=== PATIENT | male | born 1945 | race Caucasian/White ===

== ENCOUNTER 2019-03-07 17:23 | Emergency (ER) | payer OTHER, BC ==
--- OUTSIDE RECORDS SUMMARY | 2019-03-07 17:27 | XMS REPORT ---
:1945 [facility] [address] [place] [address] Care Team Providers Name Role Phone Unavailable Unavailable Unavailable Problems This patient has no known problems. Allergies, Adverse Reactions, Alerts This patient has no known allergies or adverse reactions. Medications This patient has no known medications. Results Test Description Test Time Test Comments Text Results Atomic Results Result Comments CT, EXTREMITY, 2017-01-25 19:47:00 FINAL REPORT PATIENT ID: RADHA WITHOUT [id number] CLINICAL HISTORY: CONTRAST, RIGHT Trauma and pain COMPARISON: None. Correlation is made with a right hip series performed on the same date. FINDINGS: Multiple axial images of the right hip are submitted without IV contrast. Coronal and sagittal reformats were created. This exam was performed according to our departmental dose-optimization program, which includes automated exposure control, adjustment of the mA and/or kV according to patient size and/or use of the iterative reconstruction technique. There is a minimally displaced fracture of the superior margin of the greater trochanter of the right femur. There is overlying soft tissue contusion. Otherwise no acute fracture is present. The hip joint is aligned. No significant degenerative changes are present in the right hip. Vascular calcifications are present in the pelvis and right lower extremity. There are some prominent right inguinal lymph nodes. The largest has a short axis diameter of 1.7 cm. IMPRESSION: Minimally displaced fracture of the superior margin of the greater trochanter of the right femur. Prominent right inguinal lymph nodes, nonspecific. These may be reactive or reflect primary lymphoproliferative or metastatic neoplasm. Correlation is recommended. Signed: Jorge Kumar MDReport Verified Date/Time: 01/25/2017 19:47:23 Reading Location: [address] Reading Room , HIP, 2 VIEWS, 2017-01-25 19:11:00 Reason for FINAL REPORT PATIENT ID: RIGHT exam:->FALLReason [id number] CLINICAL HISTORY: for exam:->HIP Trauma and pain COMPARISON: PAINShould this be None. FINDINGS: Frontal performed at the view of the pelvis and a bedside?->No lateral view of the right hip are submitted. There is no acute fracture, malalignment or destructive bony lesion. Surgical clips overlie the right lower abdomen. Signed: Jorge Kumar MDReport Verified Date/Time: 01/25/2017 19:11:49 Reading Location: [address] Reading Room
[2019-03-07 19:25] LABS: Absolute Lymphocytes (CBC) 0.8 K/uL (0.7-4.9); Basophils % 0.5 % (0-1.3); Hematocrit 31.7 % (39.6-49.0); Lymphocytes % 8.2 % (15.3-44.8); MPV 7.2 fL (7.6-11.3)
[2019-03-07 19:41] LABS: Albumin 3.5 g/dL (3.4-5.0); Bilirubin Total 0.5 mg/dL (0.2-1.0); Potassium 3.3 mmol/L (3.5-5.1)
--- NOTE | 2019-03-07 19:51 | ER ---
Nurse's Notes [facility] Name: Amando Grossman Age: 73 yrs Sex: Male : 1945 Arrival Date: 03/07/2019 Time: 17:14 Bed 14 Private MD: Diagnosis: Other fatigue Presentation: 03/07 17:15 Presenting complaint: EMS states: Pt just started HD a week ago. Pt S/P HD around 15:30 wh states he felt weak afterwards. Pt denies SOB or Chest pain. Transition of care: patient was not received from another setting of care. Onset of symptoms was March 07, 2019. Risk Assessment: Do you want to hurt yourself or someone else? Patient reports no desire to harm self or others. Initial Sepsis Screen: Does the patient meet any 2 criteria? No. Patient's initial sepsis screen is negative. Does the patient have a suspected source of infection? No. Patient's initial sepsis screen is negative. Care prior to arrival: Glucose check: 133. 17:15 Method Of Arrival: EMS: [facility] 17:15 Acuity: KELLY 3 Historical: - Allergies: 17:23 Iodine; 17:23 PENICILLINS; - Home Meds: 17:23 metoprolol tartrate 50 mg Oral tab 1 tab 2 times per day [Active]; nifedipine 90 mg Oral TbER 1 tab once daily [Active]; WelChol 3.75 gram oral pwpk 1 packet twice a day [Active]; clopidogrel 75 mg oral tab 1 tab once daily [Active]; aspirin 81 mg Oral chew 1 tab once daily [Active]; zolpidem 10 mg Oral tab 1 tab nightly [Active]; tamsulosin 0.4 mg oral cp24 1 cap once daily [Active]; - PMHx: 17:23 Hypertension; High Cholesterol; Depression; Anxiety; GERD; - PSHx: 17:23 Knee Replacement; HEart Stents; 17:43 Nephrectomy; Colon Resection; - Immunization history:: Flu vaccine is up to date. - Coronavirus screen:: The patient has NOT traveled to [place], [place], or [place] in the past 14 days. - Social history:: Smoking status: Patient/guardian denies using. - Ebola Screening: : Patient negative for fever greater than or equal to 101.5 degrees Fahrenheit, and additional compatible Ebola Virus Disease symptoms Patient denies exposure to infectious person. Screenin:24 Abuse screen: Denies threats or abuse. Denies injuries from another. Nutritional wh screening: No deficits noted. Tuberculosis screening: No symptoms or risk factors identified. Fall Risk None identified. Assessment: 17:23 General: Appears in no apparent distress. Behavior is calm, cooperative, appropriate wh for age. Pain: Denies pain. Neuro: Level of Consciousness is awake, alert, obeys commands, Oriented to person, place, time, situation, Appropriate for age. Cardiovascular: Heart tones S1 S2. Cardiovascular: Dialysis shunt: in the anterior aspect of right upper chest. Respiratory: Airway is patent Respiratory effort is even, unlabored, Respiratory pattern is regular, symmetrical, Breath sounds are clear bilaterally. GI: Abdomen is flat, non-distended. : No signs and/or symptoms were reported regarding the genitourinary system. EENT: No signs and/or symptoms were reported regarding the EENT system. Derm: Skin is intact, is healthy with good turgor, Skin is pink, warm \T\ dry. normal. Musculoskeletal: Circulation, motion, and sensation intact. 20:20 Reassessment: Patient appears in no apparent distress at this time. Patient and/or jd3 family updated on plan of care and expected duration. Pain level reassessed. Patient is alert, oriented x 3, equal unlabored respirations, skin warm/dry/pink. pt reported understanding of discharge instructions. assisted pt out to vehicle with wheelchair. Patient states feeling better. Vital Signs: 17:17 BP 129 / 68; Pulse 83; Resp 18; Temp 98; Pulse Ox 98% ; Weight 87.54 kg; Height 5 ft. 8 wh in. (172.72 cm); 20:19 BP 151 / 78; Pulse 82; Resp 17 S; Pulse Ox 100% on R/A; jd3 17:17 Body Mass Index 29.35 (87.54 kg, 172.72 cm) ED Course: 17:14 Patient arrived in ED. 17:17 Triage completed. 17:41 Yasmine Victor is Primary Nurse. 17:42 Arm band placed on right wrist. 17:42 Patient has correct armband on for positive identification. Bed in low position. Call light in reach. Side rails up X 1. certified pedorthotist on. Pulse ox on. NIBP on. 18:02 Kian Abarca NP is PHCP. pm1 18:02 Trevor Abdalla MD is Attending Physician. pm1 20:20 No provider procedures requiring assistance completed. IV discontinued, intact, jd3 bleeding controlled, No redness/swelling at site. Pressure dressing applied. Administered Medications: No medications were administered Outcome: 19:50 Discharge ordered by MD. pm1 20:20 Discharged to home via wheelchair, with friend. jd3 20:20 Condition: stable 20:20 Discharge instructions given to patient, friend, Instructed on discharge instructions, follow up and referral plans. Demonstrated understanding of instructions, follow-up care. 20:22 Patient left the ED. jd3 Signatures: Kian Abarca NP CLASSIFIER TENDER pm1 Yasmine Victor Jonathon RN RN jd3 Corrections: (The following items were deleted from the chart) 20:21 20:20 Reassessment: pt reported understanding of discharge instructions. assisted pt jd3 out to vehicle with wheelchair. jd3
--- NOTE | 2019-03-07 19:51 | EDPHYS ---
Physician Documentation [facility] Name: Amando Grossman Age: 73 yrs Sex: Male : 1945 Arrival Date: 03/07/2019 Time: 17:14 Bed 14 Private MD: ED Physician Trevor Abdalla HPI: 03/07 18:12 This 73 yrs old Male presents to ER via EMS with complaints of fatigue. pm1 18:12 Onset: The symptoms/episode began/occurred today, after dialysis treatment. Associated pm1 signs and symptoms: Pertinent positives: cramping to left calf during dialysis treatment. Associated signs and symptoms: Pertinent negatives: chest pain, cough, dysuria, fever, headache, shortness of breath, vomiting. Modifying factors: The patient symptoms are alleviated by nothing, the patient symptoms are aggravated by nothing. The patient has not experienced similar symptoms in the past. Yes had dialysis treatment today where they took off more fluid than they had two days ago. Historical: - Allergies: 17:23 Iodine; 17:23 PENICILLINS; - Home Meds: 17:23 metoprolol tartrate 50 mg Oral tab 1 tab 2 times per day [Active]; nifedipine 90 mg Oral TbER 1 tab once daily [Active]; WelChol 3.75 gram oral pwpk 1 packet twice a day [Active]; clopidogrel 75 mg oral tab 1 tab once daily [Active]; aspirin 81 mg Oral chew 1 tab once daily [Active]; zolpidem 10 mg Oral tab 1 tab nightly [Active]; tamsulosin 0.4 mg oral cp24 1 cap once daily [Active]; - PMHx: 17:23 Hypertension; High Cholesterol; Depression; Anxiety; GERD; wh - PSHx: 17:23 Knee Replacement; HEart Stents; 17:43 Nephrectomy; Colon Resection; - Immunization history:: Flu vaccine is up to date. - Coronavirus screen:: The patient has NOT traveled to [place], [place], or [place] in the past 14 days. - Social history:: Smoking status: Patient/guardian denies using. - Ebola Screening: : Patient negative for fever greater than or equal to 101.5 degrees Fahrenheit, and additional compatible Ebola Virus Disease symptoms Patient denies exposure to infectious person. ROS: 18:12 Eyes: Negative for injury, pain, redness, and discharge, ENT: Negative for injury, pm1 pain, and discharge, Neck: Negative for injury, pain, and swelling. 18:12 Cardiovascular: Negative for chest pain, palpitations, and edema, Respiratory: Negative for shortness of breath, cough, wheezing, and pleuritic chest pain, Abdomen/GI: Negative for abdominal pain, nausea, vomiting, diarrhea, and constipation, Back: Negative for injury and pain, MS/Extremity: Negative for injury and deformity, Skin: Negative for injury, rash, and discoloration, Neuro: Negative for headache, weakness, numbness, tingling, and seizure. 18:12 Constitutional: Positive for fatigue, Negative for body aches. Exam: 18:12 Constitutional: This is a well developed, well nourished patient who is awake, alert, pm1 and in no acute distress. Head/Face: Normocephalic, atraumatic. Neck: Trachea midline, no thyromegaly or masses palpated, and no cervical lymphadenopathy. Supple, full range of motion without nuchal rigidity, or vertebral point tenderness. No Meningismus. Chest/axilla: Normal chest wall appearance and motion. Nontender with no deformity. No lesions are appreciated. Cardiovascular: Regular rate and rhythm with a normal S1 and S2. No gallops, murmurs, or rubs. Normal PMI, no JVD. No pulse deficits. Respiratory: Lungs have equal breath sounds bilaterally, clear to auscultation and percussion. No rales, rhonchi or wheezes noted. No increased work of breathing, no retractions or nasal flaring. Abdomen/GI: Soft, non-tender, with normal bowel sounds. No distension or tympany. No guarding or rebound. No evidence of tenderness throughout. Back: No spinal tenderness. No costovertebral tenderness. Full range of motion. Skin: Warm, dry with normal turgor. Normal color with no rashes, no lesions, and no evidence of cellulitis. MS/ Extremity: Pulses equal, no cyanosis. Neurovascular intact. Full, normal range of motion. 18:12 Neuro: Orientation: is normal, Motor: moves all fours, strength is normal, strength is 5/5 in all extremities. Vital Signs: 17:17 BP 129 / 68; Pulse 83; Resp 18; Temp 98; Pulse Ox 98% ; Weight 87.54 kg; Height 5 ft. 8 wh in. (172.72 cm); 20:19 BP 151 / 78; Pulse 82; Resp 17 S; Pulse Ox 100% on R/A; jd3 17:17 Body Mass Index 29.35 (87.54 kg, 172.72 cm) wh MDM: 18:02 Patient medically screened. pm1 19:49 Data reviewed: vital signs. Data interpreted: Pulse oximetry: on room air is 98 %. pm1 Interpretation: normal. Counseling: I had a detailed discussion with the patient and/or guardian regarding: the historical points, exam findings, and any diagnostic results supporting the discharge/admit diagnosis, lab results, the need for outpatient follow up, to return to the emergency department if symptoms worsen or persist or if there are any questions or concerns that arise at home. 19:49 ED course: Patient had dialysis treatment today which was his 4th hemodialysis pm1 treatment. He reports that removed 3/4 of a liter today which increased from 1/2 liter two days ago. He felt fatigued after dialysis and came to the ER for evaluation. No chest pain or shortness of breath. My impression is his fatigued is likely adjustment to new life of hemodialysis. 03/07 18:12 Order name: CBC with Diff; Complete Time: 19:49 pm1 03/07 18:12 Order name: CMP; Complete Time: 19:43 pm1 03/07 18:12 Order name: EKG; Complete Time: 18:12 pm1 03/07 18:12 Order name: EKG - Nurse/Tech; Complete Time: 18:38 pm1 EC:26 Rate is 82 beats/min. Rhythm is irregular, Sinus arrythmia with PACs. QRS [place] is kdr Normal. IA interval is normal. QT interval is prolonged. Clinical impression: NSR w/ Non-specific ST/T Changes. Administered Medications: No medications were administered Disposition: 03/07/19 19:50 Discharged to Home. Impression: Other fatigue. - Condition is Stable. - Discharge Instructions: Fatigue, Hemodialysis. - Medication Reconciliation Form, Thank You Letter, Antibiotic Education, Prescription Opioid Use form. - Follow up: Private Physician; When: 2 - 3 days; Reason: Recheck today's complaints, Continuance of care, Re-evaluation by your physician. Follow up: Emergency Department; When: As needed; Reason: Worsening of condition. - Problem is new. - Symptoms have improved. Addendum: 03/08/2019 21:19 Co-signature as Attending Physician, Trevor Abdalla MD I agree with the assessment and k dr plan of care. Signatures: Dispatcher [employer] [facility] Trevor Abdalla MD MD [facility] Kain Abarca, COOLER TENDER COOLER TENDER pm1 Yasmine Victor Jonathon, RN RN jd3 Corrections: (The following items were deleted from the chart) 03/07 20:22 19:50 03/07/2019 19:50 Discharged to Home. Impression: Other fatigue. Condition is jd3 Stable. Forms are Medication Reconciliation Form, Thank You Letter, Antibiotic Education, Prescription Opioid Use. Follow up: Private Physician; When: 2 - 3 days; Reason: Recheck today's complaints, Continuance of care, Re-evaluation by your physician. Follow up: Emergency Department; When: As needed; Reason: Worsening of condition. Problem is new. Symptoms have improved. pm1
[2019-03-07 20:27] VITALS: BP 151/78; O2SAT 100
--- NOTE | 2019-03-08 09:41 | EKG ---
Test Date: 2019-03-07 Test Time: 18:17:53 [employer] Custodian: SHAILA MEASUREMENT RESULTS: Intervals: Rate: 82 HI: 198 QRSD: 102 QT: 426 QTc: 497 [place]: P: 45 HI: 198 QRS: 68 T: 58 INTERPRETIVE STATEMENTS: Sinus rhythm with premature supraventricular complexes Prolonged QT Abnormal ECG Compared to ECG 05/30/2005 15:24:00 Atrial premature complex(es) now present Prolonged QT interval now present Sinus tachycardia no longer present Electronically Signed On 03-08-19 09:40:49 TOOL SALVAGE WORKER by Chauncey Benitez
== END 2019-03-07 20:22 | disposition home or self-care (01) ==
LOC: ER 17:23
DX: R53.83 Other fatigue (principal); Z91.09 Other allergy status, other than to drugs and biological substances; Z88.0 Allergy status to penicillin; I10 Essential (primary) hypertension; E78.00 Pure hypercholesterolemia, unspecified; F41.8 Other specified anxiety disorders; K21.9 Gastro-esophageal reflux disease without esophagitis; Z95.5 Presence of coronary angioplasty implant and graft; Z99.2 Dependence on renal dialysis
CPT/HCPCS: 36415; 80053; 85025; 93005; 99284

== ENCOUNTER 2020-10-01 13:54 | Emergency (ER) | payer OTHER, BC ==
--- OUTSIDE RECORDS SUMMARY | 2020-10-01 13:59 | XMS REPORT | Continuity of Care Document ---
:1945 Author Organization [facility] t Address [address] [place] [address] [place] [address] Care Team Providers Name Role Phone Jerrell Pierce MD Primary Care Physician Archie Harris MD Attending Clinician Sugar SANTOS Attending Clinician Unavailable Jignesh Arvizu MD Attending Clinician Arvin King DO Attending Clinician Dickson MOSQUERA Attending Clinician Ame Attending Clinician Bear Graham MD Attending Clinician DO ARVIN KING Attending Clinician Unavailable Pierre York MD Attending Clinician Lisa Pedraza Attending Clinician Sahil Mosley MD Attending Clinician SHIVA Attending Clinician Unavailable KAYLIE Attending Clinician Unavailable CYN Attending Clinician Unavailable CHRISTINE Admitting Clinician Unavailable DO ARVIN KING Admitting Clinician Unavailable SHIVA Admitting Clinician Unavailable KAYLIE Admitting Clinician Unavailable Payers Payer Name Policy Type Policy Effective Date Expiration Date Sour ce Number MEDICAREMEDICARE PART [id number] 2010 [facility] [id number] 2010- [place] [id number] 2010 Sathya odist MEDICARE 4 00:00:00 Hospital [id number] -PresentCom mercial Problems Condition Condition Condition Status Onset Resolution Last Treating Co mments Source Name Details Category Date Date Treatment Clinician Date 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 Added automatic ally from request for surgery [id number] End stage End stage Disease Active Met hodi renal renal 1-23 st disease on disease on 00:00: Ho spita dialysis dialysis 00 l Chronic Chronic Disease Active 2018-02 Methodi disease disease 0-09 st anemia anemia 00:00: Hospita 00 l Chronic Chronic Disease Active 2018-02 Methodi kidney kidney 0-09 st disease, disease, 00:00: Hospit a stage IV stage IV 00 l (severe) (severe) Anemia, Anemia, Disease Active 2017-02 Methodi unspecifie unspecifie 1-13 st d d 00:00: Hospita 00 l Infection Infection Disease Active Met hodi of of 5-31 st prosthetic prosthetic 00:00: Ho spita right knee right knee 00 l joint joint Fever Fever Disease Active [facility] Mechanical Mechanical Disease Active C [facility] loosening loosening 6-16 [facility] - of of 00:00: Medical prosthetic prosthetic 00 Ce nter joint joint ROUTINE Condition Active 2014-02-18 Me moria GENERAL 1-08 10:35:00 l MEDICAL ROUTINE 00:00: Carlton escoto EXAMINATIO GENERAL 00 N AT A MEDICAL HEALTH EXAMINATIO CARE N AT A FACILITY HEALTH CARE FACILITY Active 02/18/2014 Condition 5 [facility] HYPERTROPH Condition Active 2012-022014-02-18 Memoria Y PROSTATE 2-13 10:35:00 l W/UR OBST 00:00: [place] & OTH LUTS HYPERTROPH 00 Y PROSTATE W/UR OBST & OTH LUTS Active 01/23/2013 Condition 5 [facility] Group HYPERTENSI Condition Active 2014-02-18 Memoria ON 10:35:00 l Jimmy HYPERTENSI ON Active Condition 02/18/2014 Medical Group DYSLIPIDEM Condition Active 2014-02-18 Memoria [place] 10:35:00 l [place] DYSLIPIDEM [place] Active Condition 02/18/2014 Medical Group GERD Condition Active 2014-02-18 Mem oria 10:35:00 l GERD Jimmy Active Condition 02/18/2014 Medical Group ASCVD Condition Active 2014-02-18 Mem oria 10:35:00 l ASCVD Jimmy Active Condition 02/18/2014 Medical Group CAD Condition Active 2014-02-18 Mem oria 10:35:00 l CAD Jimmy Active Condition 02/18/2014 Medical Group CHRONIC Condition Active 2014-02-18 Me moria KIDNEY 10:35:00 l DISEASE CHRONIC Carlton n STAGE III KIDNEY (MODERATE) DISEASE STAGE III (MODERATE) Active Condition 02/18/2014 Medical Group Allergies, Adverse Reactions, Alerts Allergy Allergy Status Severity Reaction(s) Onset Inactive Treating Comm ents Source Name Type Date Date Clinician Iodine FA Active [place] [facility] and 05-13 Clear Iodide 00:00: Smith Containi 00 [facility] shellfis FA Active [facility] h - Clear derived 00:00: Smith [address] [facility] PINICILL DA Active [place] [facility] IN 05-13 Clear 00:00: Smith [address] [facility] No Known DA Active [facility] Allergie 05-13 [place] s 00:00: d 00 Medical [place] Eicosape Propensi Active [facility] to 8-13 [facility] - Acid adverse 00:00: Medical reaction 00 Hans[place] s Shellfis Propensi Active Nausea And 2015-02 Me thodi h ty to Vomiting 0-21 st Containi adverse 00:00: Hospita ng reaction 00 l Products s to drug Iodine Propensi Active Rash 2015-[address] ty to 0-20 [facility] - adverse 00:00: Medical reaction 00 Hanson s Iodine Propensi Active Rash 2015-02 Methodi ty to 0-20 st adverse 00:00: Hospita reaction 00 l s to drug Penicill Propensi Active Rash 2015-02 unknown Metho di ins ty to 0-20 st adverse 00:00: Hospita reaction 00 l s to drug Atorvast Propensi Active [facility] at[facility] ty to 2-24 [facility] - adverse 00:00: Medical reaction 00 Center s Penicill Propensi Active Hives, unknown [facility] t ins ty to Anaphylaxis - [facility] - adverse 00:00: Medical reaction 00 Center s Shellfis Propensi Active Diarrhea, [facility] ty to Nausea And 07-09 [facility] - Containi adverse Vomiting 00:00: Medic al ng reaction 00 Center Products s PCN PCN Active Chela Marquez IODINE IODINE Active Memnick Marquez Family History Family Member Diagnosis Comments Start Date Stop Date Source Natural father Heart disease [facility] Natural mother COPD [facility] Social History Social Habit Start Date Stop Date Quantity Comments Source Tobacco use and 2020-04-27 2020-04-27 Never used Jew exposure 00:00:00 00:00:00 Hospital Alcohol intake 2020-04-27 2020-04-27 Current Jew 00:00:00 00:00:00 non-drinker of Hospital alcohol (finding) Sex [birth year] Jew 00:00:00 00:00:00 [facility] Smoking Status Start Date Stop Date Source Never smoker Jew Hospit al Medications Ordered Filled Start Stop Current Ordering Indication Dosage Frequency Signature Comments Components Source Medication Medication Date Date Medication? Clinician (SIG) Name Name zolpidem No 10mg QD Take 10 mg Me thodi (AMBIEN) 10 03-[address] mg tablet 17:35: 00:00 nightly. Hos imelda 37 :00 l aspirin No 81mg QD Take 81 mg Met hodi (ECOTRIN) 03-[address] 81 MG 17:35: 00:00 daily. Hospita enteric 37 :00 l coated tablet traZODone No 100mg QD Take 100 Me thodi (DESYREL) 2-13 02-[address] 100 MG 17:35: 00:00 mouth Hospita tablet 37 :00 nightly. l gabapentin 2020-2020- No 100mg Q.5D Take 100 M ethodi (NEURONTIN) 2-13 02-[address] 100 mg 17:35: 00:00 mouth 2 Hospita capsule 37 :00 (two) l times a day. Take 2 capsules (total of 200 mg) in the evening sulfamethox 0 2020- No 800mg QD Take 800 Methodi azole/trime 2-13 02-[address] thoprim 17:35: 00:00 mouth Hospita (BACTRIM 37 :00 daily. l ORAL) acetaminoph Yes 2000mg QD Take 2,000 Methodi en 2-[address] (TYLENOL) 17:35: mouth Hospita 500 MG 31 daily. l tablet tamsulosin Yes .4mg QD Take 0.4 Met hodi (FLOMAX) 2-[address] 0.4 mg 17:35: mouth Hospita capsule 31 every l morning. clopidogreL Yes 75mg QD Take 75 mg Methodi (PLAVIX) 75 2-[address] mg tablet 17:35: every Hospita 31 morning. l vit A/vit Yes 1{tbl} Q.5D Take 1 Meth herminia C/vit 2-[address] E/zinc/bravo 17:35: mouth 2 Hos imelda er 31 (two) l (PRESERVISI times a ON . ORAL) colesevelam Yes Take by Met hodi (WELCHOL) 2-[address] 3.75 gram 17:35: Welchol Hospi ta powder in 31 (ONLY) l packet Take 2 - 3.75 gram packets per day after AM & PM FLUTICASONE 0 Yes Q.5D into each M ethodi PROPIONATE 2-[address] NASL 17:35: (two) Hospita 31 times a l day. [place] twice daily diphenhydrA Yes 25mg Take 25 mg Methodi MINE 2-[address] (BENADRYL) 17:35: once. Hospit a 25 mg 31 l tablet desvenlafax Yes 25mg QD Take 25 mg Methodi ine 2-[address] succinate 17:35: daily. Hospit a (Pristiq) 31 l 25 mg tablet extended release 24 hr furosemide Yes 40mg QD Take 40 mg M ethodi (LASIX) 40 2-[address] mg tablet 17:35: daily. Hospit a 31 l folic Yes 1{capsu Take 1 Methodi acid/vit B 2-13 le} capsule by st complex and 17:35: mouth Hospi ta C 31 Every l (DIALYVITE Saturday, ORAL) Saturday, and Saturday. After dialysis metoprolol 2020- No 25mg Q.5D Take 1 Meth herminia tartrate 03-25-15 tablet (25 st (LOPRESSOR) 00:00: 04:59 mg total) Hospita 25 mg 00 :00 by mouth 2 l tablet (two) times a day for 30 days. gabapentin 2020- No 300mg QD Take 1 Met hodi (NEURONTIN) 03-25-[address] 300 mg 00:00: 04:59 (300 mg Hospita capsule 00 :00 total) by l mouth nightly for 30 days. aspirin 2020- No 81mg Q.5D Take 1 Methodi (ECOTRIN) 03-25-15 tablet (81 st 81 MG 00:00: 04:59 mg total) Hospit a enteric 00 :00 by mouth 2 l coated (two) tablet times a day for 30 days. traZODone 2020- No 150mg QD Take 1 Meth herminia (DESYREL) 03-25-[address] 150 MG 00:00: 04:59 (150 mg Hospita tablet 00 :00 total) by l mouth nightly for 30 days. zolpidem 2020- No 5mg QD Take 1 Method i (AMBIEN) 5 03-25-15 tablet (5 st MG tablet 00:00: 04:59 mg total) Ho spita 00 :00 by mouth l nightly for 30 days. sulfamethox 2020- No 1{tbl} QD Take 1 M ethodi azole-trime 11-02- tablet by st thoprim 00:00: 00:00 mouth Hospita (Bactrim) 00 :00 daily. l 400-80 mg per tablet sulfamethox 2019-0 2020- No TAKE ONE M ethodi azole-trime -29 10- TABLET BY st thoprim 00:00: 00:00 MOUTH Hospita (BACTRIM 00 :00 DAILY l DS) 800-160 mg per tablet COLESEVELAM 2016-02 Yes 3.75g Take 3.[address] HCL 2-15 g by mouth [facility] - (WELCHOL 17:11: 2 (two) Medica l ORAL) 46 times Center daily with breakfast and dinner . coenzyme 2016-02 Yes [address] [facility] Q10 100 mg 2-15 [facility] - Chew 17:11: [address] niacin 500 2016-02 Yes [address] [facility] MG CR 2-15 [facility] - capsule 17:11: [address] zolpidem 2016-02 Yes 10mg Take [address] (AMBIEN) 10 2-15 by mouth Luke s - mg tablet 17:10: every Medical 17 night as Center needed for Insomnia. DULoxetine 2016-02 Yes 60mg QD Take [address] (CYMBALTA) 2-15 by mouth [facility] - 60 MG 17:10: daily. Medical capsule 17 Center NIFEdipine 2016-02 Yes 60mg QD Take [address] (PROCARDIA- 2-15 by mouth Luke s - XL) 60 MG 17:10: daily. Medica l (OSM) 24 hr 17 Center tablet tamsulosin 2014-0 Yes .4mg 0.[address] (FLOMAX) 5-23 [facility] - 0.4 mg Cp24 00:00: Medica l 24 hr 00 Center capsule pantoprazol 2015-0 Yes QD daily . [facility] e 5-22 [facility] - (PROTONIX) 00:00: Medical 40 MG 00 Center tablet pantoprazol 2014-0 Yes 40mg QD Take 40 mg Methodi e 5-[address] (PROTONIX) 00:00: every Hospit a 40 MG EC 00 morning. l tablet clopidogrel 2015-0 Yes QD daily . [facility] (PLAVIX) 75 5-12 [facility] - mg tablet 00:00: Medical 00 Center fluticasone 2014-0 Yes 2{spray Q.5D [address] (FLONASE) 5-12 } by Nasal [facility] - 50 00:00: route 2 Medical mcg/actuati 00 (two) Center on nasal times spray daily . metoprolol Yes Q.5D 2 (two) [facility] (LOPRESSOR) 5-12 times [facility] - 50 MG 00:00: daily . Medical tablet 00 [place] nisoldipine Yes 34mg QD 34 mg [facility]I [facility] t (SULAR) 34 5-12 daily . [facility] - MG 24 hr 00:00: Medical tablet 00 [place] metoprolol 1- No 25mg QD Take 25 mg Methodi tartrate 5-12 02-[address] (LOPRESSOR) 00:00: 00:00 daily. Hos imelda 50 MG 00 :00 l tablet CLOPIDOGREL Yes TAKE 1 Andres dora BISULFATE 1-08 TABLET BY l 75 MG TABS 10:35: MOUTH Carlton n 00 DAILY NISOLDIPINE Yes TAKE 1 Andres dora ER 34 MG 1-08 TABLET BY l [id number] 10:35: MOUTH Jimmy 00 DAILY LOSARTAN Yes TAKE 1 Memoria POTASSIUM 1-08 TABLET BY l 100 MG TABS 10:35: MOUTH Mary nn 00 DAILY CYMBALTA 60 Yes TAKE 1 Andres dora MG CPEP 1-08 TABLET BY l 10:35: MOUTH [place] 00 DAILY PANTOPRAZOL Yes TAKE 1 Andres dora E SODIUM 40 1-08 TABLET BY l MG TBEC 10:35: MOUTH [place] 00 DAILY METOPROLOL Yes 2 tab AM & M emoria TARTRATE 50 1-08 1 tab PM l MG TABS 00:00: [place] 00 WELCHOL Yes 2 packs Memoria 3.75 GM 1-08 per day AM l PACK 00:00: & PM Jimmy NIACIN 500 Yes 1 tab Memori a MG TABS 1-08 daily l 00:00: Jimmy 00 PAPAYA Yes 2 tablet Memoria ENZYME TABS 1-08 after main l 00:00: meals Jimmy METOPROLOL 2012-02 Yes TAKE 1 Memor ia TARTRATE 50 2-13 TABLET BY l MG TABS 14:45: MOUTH Jimmy 00 DAILY LOSARTAN 2012-02 Yes TAKE 1 Memoria POTASSIUM 2-13 TABLET BY l 100 MG TABS 14:45: MOUTH Mary nn 00 DAILY WELCHOL 2012-02 Yes TAKE 1 Memoria 3.75 GM 2-13 TABLET BY l PACK 14:45: MOUTH [place] 00 DAILY CYMBALTA 60 2012-02 Yes TAKE 1 Andres dora MG CPEP 2-13 TABLET BY l 14:45: MOUTH [place] DAILY PANTOPRAZOL 2012-02 Yes TAKE 1 Andres dora E SODIUM 40 2-13 TABLET BY l MG TBEC 14:45: MOUTH Jimmy DAILY PLAVIX 75 2012-02 No TAKE 1 Memori a MG TABS 2-13 TABLET BY l 00:00: MOUTH Jimmy 00 DAILY OCUVITE EYE 2012-02 Yes Memori a + MULTI 2-13 l TABS 00:00: Jimmy 00 COQ10 CAPS 2012-02 Yes Memoria 2-13 l 00:00: [place] 00 ASPIRIN 81 2012-02 Yes Memoria MG TABS 2-13 l 00:00: Jimmy 00 FLOMAX 0.4 2012-02 Yes one every Me moria MG CAPS 2-13 evening. l 00:00: [place] 00 LUNESTA 3 2012-02 Yes TAKE 1 Memori a MG TABS 2-13 TABLET BY l 00:00: MOUTH [place] DAILY LUNESTA 3 2012-02 Yes TAKE 1 Memori a MG TABS 2-13 TABLET BY l 00:00: MOUTH [place] DAILY FLOMAX 0.4 2012-02 No one every Me moria MG CAPS 2-13 evening. l 00:00: Jimmy 00 FLUTICASONE Yes 1 spray in Memoria PROPIONATE 6-05 each l 50 MCG/ACT 00:00: nostrill Her garcia SUSP 00 twice day FLUTICASONE Yes 1 spray in Memoria PROPIONATE 6-05 each l 50 MCG/ACT 00:00: nostrill Her garcia SUSP 00 twice day Immunizations Ordered Immunization Filled Immunization Date Status Commen ts Source Name Name influenza 2010-10-16 Completed [facility] immunization (Flu 14:23:57 Jimmy Vax) has been administered pneumococcal 2007-06-14 Completed [facility] immunization 14:23:57 Jimmy administered hepatitis B vaccine 2006-04-11 Completed Memor ial #3 15:23:57 Jimmy chicken pox 2006-03-20 Completed [facility] immunization #1 15:23:57 Jimmy hepatitis B vaccine 2006-03-15 Completed Memor ial #2 given 15:23:57 [place] MMR (measles, mumps, 2006-02-28 Completed Andres rial rubella) virus 15:23:57 Jimmy immunization #1 hepatitis B vaccine 2006-02-25 Completed Memor ial #1 given 15:23:57 [place] Vital Signs Vital Name Observation Time Observation Value Comments Source Body height 2020-04-27 20:44:00 172.7 cm [facility] Body weight 2020-04-27 20:44:00 84.369 kg [facility] BMI 2020-04-27 20:44:00 28.28 kg/m2 [facility] Systolic blood 2020-03-26 14:44:51 139 mm[Hg] [facility] pressure Diastolic blood 2020-03-26 14:44:51 66 mm[Hg] [facility] pressure Heart rate 2020-03-26 14:44:51 80 /min [facility] Body temperature 2020-03-26 14:44:51 36 [facility] Respiratory rate 2020-03-26 14:44:51 19 /min [facility] Oxygen saturation in 2020-03-26 14:44:51 96 /min [facility] Arterial blood by Pulse oximetry Height 2014-02-18 15:55:42 [facility] Jimmy Weight 2014-02-18 15:55:42 [facility] Jimmy Temperature Oral (F) 2014-02-18 15:55:42 97.5 F [facility] [place] Heart Rate 2014-02-18 15:55:42 [facility] Jimmy Systolic (mm Hg) 2014-02-18 15:55:42 Andres rial [place] Diastolic (mm Hg) 2014-02-18 15:55:42 Mem orial [place] Weight 2013-01-23 19:53:21 Memorial Jimmy Temperature Oral (F) 2013-01-23 19:53:21 97.6 F [facility] Jimmy Heart Rate 2013-01-23 19:53:21 Memorial [place] Height 2013-01-23 19:53:21 Memorial Jimmy Systolic (mm Hg) 2013-01-23 19:53:21 Andres rial Jimmy Diastolic (mm Hg) 2013-01-23 19:53:21 Mem orial Jimmy Procedures Procedure Date / Time Performing Clinician Source Performed [id number] 2020-05-11 00:00:00 ENCPL [id number] 2020-05-11 00:00:00 ENCPL [id number] 2020-05-11 00:00:00 ENCPL [id number] 2020-03-30 00:00:00 ENCCY [id number] 2020-03-30 00:00:00 ENCCY 1V5W02V 2020-03-30 00:00:00 ENCCY 1X3W23T 2020-03-30 00:00:00 ENCCY [id number] 2020-03-30 00:00:00 ENCCY 6Y2V96E 2020-03-30 00:00:00 ENCCY 2R8N54H 2020-03-30 00:00:00 ENCCY 7W2W49O 2020-03-30 00:00:00 ENCCY 1X5U43Y 2020-03-30 00:00:00 ENCCY 7P3M27X 2020-03-30 00:00:00 ENCCY 4T1G18J 2020-03-30 00:00:00 ENCCY [id number] 2020-03-30 00:00:00 ENCCY [id number] 2020-03-30 00:00:00 ENCCY 1Y5U72V 2020-03-30 00:00:00 ENCCY 1C5D72G 2020-03-30 00:00:00 ENCCY [id number] 2020-03-30 00:00:00 ENCCY 3U2W76J 2020-03-30 00:00:00 ENCCY 5P5E46Z 2020-03-30 00:00:00 ENCCY 8C0P94M 2020-03-30 00:00:00 ENCCY [id number] 2020-03-30 00:00:00 ENCCY [id number] 2020-03-30 00:00:00 ENCCY HC COMPLETE BLD COUNT 2020-03-25 10:45:00 [facility] Arvin BASIC METABOLIC PANEL 2020-03-25 10:00:00 [facility] Arvin ESTIMATED GFR 2020-03-25 10:00:00 Clint Kingist Ho spital Arvin HEMODIALYSIS 2020-03-24 22:39:54 Maldonado [facility] HC COMPLETE BLD COUNT 2020-03-24 11:00[facility] Arvin BASIC METABOLIC PANEL 2020-03-24 10:00:00 [facility] Arvin ESTIMATED GFR 2020-03-24 10:00:00 [facility] spital Arvin US CAROTID DUPLEX 2020-03-23 18:31:05 [facility] BILATERAL BASIC METABOLIC PANEL 2020-03-23 09:20:00 [facility] Arvin HC COMPLETE BLD COUNT 2020-03-23 09:20:00 [facility] W/AUTO DIFF Arvin ESTIMATED GFR 2020-03-23 09:20:00 Clint King spital Arvin POC GLUCOSE 2020-03-22 22:27:00 Clint King spital Arvin HEMODIALYSIS 2020-03-22 22:13:20 Romy Woodson spital Tabitha ANAEROBIC CULTURE 2020-03-22 20:52:00 [facility] FUNGUS [facility] 2020-03-22 20:52:00 Usha Martita [facility] spital AFB STAIN 2020-03-22 20:52:00 Usha Martita Archie Jew Ho spital AEROBIC CULTURE 2020-03-22 20:52:00 [facility]sha [facility] GRAM STAIN 2020-03-22 20:52:00 Usha [facility] spital ANAEROBIC CULTURE 2020-03-22 20:50:00 [facility] FUNGUS CULTURE 2020-03-22 20:50:00 Usha Martita Archie Jew Ho spital AFB STAIN 2020-03-22 20:50:00 Usha [facility] Jew Ho spital AEROBIC CULTURE 2020-03-22 20:50:00 Usha Martita Archie Jew Ho spital FUNGUS SMEAR 2020-03-22 20:50:00 Usha [facility] spital SURGICAL PATHOLOGY 2020-03-22 20:30:[address] [facility] REQUEST Arvin AFB CULTURE 2020-03-22 19:52:00 Usha [facility]apopeye [facility] spital AFB CULTURE 2020-03-22 19:50:00 Usha Martitapopeye Valladares spital OR [place] < 1 HOUR 2020-03-22 19:30:00 Martita Harris spital ID AN ELECTIVE 2020-03-22 19:25:28 Tejal Simpson ospital ENDOTRACHEAL AIRWAY AMPUTATION, ABOVE KNEE 2020-03-22 18:47:[address] [facility] POC GLUCOSE 2020-03-22 15:07:00 Clint King spital Arvin HC COMPLETE BLD COUNT 2020-03-22 12:45:[address] [facility] W/AUTO DIFF TYPE AND SCREEN 2020-03-22 12:45:00 Carlos Nelson spital VANCOMYCIN LEVEL, RANDOM 2020-03-22 10:00:00 [facility] BASIC METABOLIC PANEL 2020-03-22 10:00:00 Clint King [facility] Arvin ESTIMATED GFR 2020-03-22 10:00:00 Clint King chepetal Arvin LIPID PANEL 2020-03-22 10:00:00 Bear Mariee HEPATITIS B SURFACE 2020-03-21 14:22:00 Kumar Ayala [facility] ANTIGEN PROTHROMBIN TIME WITH INR 2020-03-21 12:15:00 [facility] PARTIAL THROMBOPLASTIN 2020-03-21 12:15:00 [facility] TIME (PTT) BASIC METABOLIC PANEL 2020-03-21 12:15:00 [facility] CBC WITH PLATELET AND 2020-03-21 12:15:00 [facility] DIFFERENTIAL VANCOMYCIN LEVEL, RANDOM 2020-03-21 12:15:00 [facility] ESTIMATED GFR 2020-03-21 12:15:00 [facility] HEMODIALYSIS 2020-03-21 06:05:17 Kumar Ayala H ospital VANCOMYCIN LEVEL, RANDOM 2020-03-20 20:54:00 Carolina Weston [facility] Yasser BASIC METABOLIC PANEL 2020-03-20 11:30:00 Clint King [facility] Arvin ESTIMATED GFR 2020-03-20 11:30:00 Clint King [facility] spital Arvin TTE COMPLETE, W CONTRAST, 2020-03-19 18:00:00 Mickey Martinez [facility] W DOPPLER ([id number]) HC COMPLETE BLD COUNT 2020-03-19 10:14:00 [facility] W/AUTO DIFF MRI KNEE WO CONTRAST 2020-03-19 09:38:00 [facility] RIGHT MRI THIGH WO CONTRAST 2020-03-19 08:52:00 [facility] RIGHT MRI LOWER EXTREMITY WO 2020-03-19 08:07:00 [facility] CONTRAST RIGHT BASIC METABOLIC PANEL 2020-03-19 07:01:00 [facility]FR 2020-03-19 07:01:00 [facility] spital LACTIC ACID LEVEL 2020-03-19 07:01:00 [facility] LACTIC ACID LEVEL, SEPSIS 2020-03-19 01:46:00 [facility] - NOW AND REPEAT 2X EVERY [place] 3 HOURS BLOOD CULTURE, AEROBIC & 2020-03-18 23:22:00 [facility] ANAEROBIC [place] COVID-19 QUALITATIVE 2020-03-18 23:22:00 [facility] RT-PCR [place] BLOOD CULTURE, AEROBIC & 2020-03-18 23:16:00 [facility] ANAEROBIC [place] HC COMPLETE BLD COUNT 2020-03-18 23:16:00 [facility] W/AUTO DIFF [place] PROTHROMBIN TIME WITH INR 2020-03-18 23:16:00 [facility] [place] PARTIAL THROMBOPLASTIN 2020-03-18 23:16:00 [facility] TIME (PTT) [place] TYPE AND SCREEN 2020-03-18 23:16:00 [facility] spital [place] COMPREHENSIVE METABOLIC 2020-03-18 23:16:00 [facility] PANEL [place] LACTIC ACID LEVEL, SEPSIS 2020-03-18 23:16:00 [facility] - NOW AND REPEAT 2X EVERY [place] 3 HOURS C-REACTIVE PROTEIN 2020-03-18 23:16:00 [facility] [place] SEDIMENTATION RATE 2020-03-18 23:16:00 [facility] [place] ESTIMATED GFR 2020-03-18 23:16:00 [facility] spital [place] URINE CULTURE 2020-03-18 23:10:00 [facility] spital [place] URINALYSIS SCREEN AND 2020-03-18 23:10:00 [facility] MICROSCOPY, WITH REFLEX [place] TO CULTURE XR KNEE 1 OR 2 VW RIGHT 2020-03-18 23:03:39 [facility] [place] XR TIBIA FIBULA 2 VW 2020-03-18 23:03:04 [facility] RIGHT [place] Plan of Care Planned Activity Planned Date Details Comments Source Future Scheduled Test INFLUENZA VACCINE [code [facility] = INFLUENZA VACCINE] Future Scheduled Test 65+ PNEUMOCOCCAL [facility] VACCINE (1 of 4 - PCV13) [code = 65+ PNEUMOCOCCAL VACCINE (1 of 4 - PCV13)] Future Scheduled Test DIABETES: RETINAL EYE [facility] EXAM [code = DIABETES: RETINAL EYE EXAM] Future Scheduled Test DIABETIC FOOT EXAM [facility] [code = DIABETIC FOOT EXAM] Future Scheduled Test COVID-19 VACCINE (1) [facility] [code = COVID-19 VACCINE (1)] Future Scheduled Test COLONOSCOPY SCREENING [facility] [code = COLONOSCOPY SCREENING] Future Scheduled Test SHINGLES VACCINES (#1) [facility] [code = SHINGLES VACCINES (#1)] Encounters Start End Encounter Admission Attending Care Care Encounter Source Date/Time Date/Time Type Type Clinicians Facility Department ID 2020-04-27 2020-04-27 Martita Dubose [id number] Methodi 15:36:30 16:10:42 [address] Ar[id number] [id number] Hospit a .[id number] l .8 2020-04-27 2020-04-27 Travel [id number] Methodi 00:00:00 00:00:[id number] 3.430.2.7 [id number] Ho spita [id number] 084.8 l .8 2020-04-27 2020-04-27 [facility] [id number] [place] 00:00:00 00:00:[address] 2020-04-26 2020-04-26 Travel 1.2.840.1 1.2.285.282 4628 [id number] Methodi 00:00:00 00:00:[address] 3.430.2.7 0.2.7.3.698 Ho spita .3.200269 084.8 l .8 2020-04-13 2020-04-18 [facility] 1.2.840.1 [id number] Methodi 11:45:02 00:23:05 Visit Archie 82695.1.[address] 3.430.2.7 Hospit a .3.992508 l .8 2020-04-13 2020-04-18 [facility] 2099 [id number] [place] 00:00:00 00:00:[address] 2020-04-13 2020-04-13 Travel 1.2.840.1 1.2.190.712 5065 256748 Methodi 00:00:00 00:00:[address] 3.430.2.7 0.2.7.3.698 Ho spita .3.166854 084.8 l .8 2020-04-05 2020-04-05 Abstract Sugar, 1.2.840.1 [id number] 695 3258575 Methodi 00:00:00 00:00:[address] 3.430.2.7 Hospit a .3.035108 l .8 2020-04-04 2020-04-04 Office Martita Harris 1.2.840.1 [id number] 080 [id number] Methodi 13:34:38 14:35:21 Visit Archie 50006.1.[address] 3.430.2.7 Hospit a .3.038698 l .8 2020-04-04 2020-04-04 [facility] MARTITA HARRIS [facility] 2099 [id number] [place] 00:00:00 00:00:[address] 2020-04-04 2020-04-04 Travel 1.2.840.1 1.2.438.098 7275 194871 Methodi 00:00:00 00:00:[address] 3.430.2.7 0.2.7.3.698 Ho spita .3.503739 084.8 l .8 2020-04-01 2020-04-01 Orders Sugar, 1.2.840.1 [id number] 2099 506926 Methodi 00:00:00 00:00:00 Only Emilee [address]91.1.[address] 3.430.2.7 Hospit a .3.837716 l .8 2020-04-01 2020-04-01 Travel 1.2.840.1 1.2.715.550 6968 253316 Methodi 00:00:00 00:00:[address] 3.430.2.7 0.2.7.3.698 Ho spita .3.223234 084.8 l .8 2020-03-18 2020-[facility] .[facility] [id number] Methodi 15:51:00 11:35:00 Clint Bruce Arvin 73594.1.[address] Dickson [facility] 3.430.2.7 Hos imelda .3.843297 l .8 2020-03-18 2020-03-26 Inpatient LEE CERNA [facility] 014 03561 06533 [place] 00:00:00 00:00:[address] 2020-03-22 2020-03-22 Anesthesia Liu Mccloud 1.2.840.1 [id number] 84 [id number] Methodi 12:47:00 16:31:00 Event Clint Graham 25284.1.[address] 3.430.2.7 Hospit a .3.844566 l .8 2020-03-22 2020-03-22 Surgery Martita Harris 1.2.840.1 [id number] 976 [id number] Methodi 12:53:00 14:38:[address] 3.430.2.7 Hospit a .3.604988 l .8 2019-11-19 2019-11-19 Office DELMY [place] 1.2.840.114 337316 61 10:50:53 15:23:52 Visit Oswald Jay AMBULATOR 350.1.13.21 Y 0.2.7.2.686 [id number] 300 2019-11-11 2019-11-11 Emergency Wanda Pickens [facility] 1.2.840.114 78 811410 17:16:00 22:21:00 Lisa Pinead 350.1.13.10 Welcome 4.2.7.2.686 [place] 767.5857939 084 2019-11-03 2019-11-03 Telephone Melany, 1.2.840.1 [id number] 2100 966282 Methodi 09:01:34 09:25:16 Consult Liss Baxter 37874.1.[address] 3.430.2.7 Hospit a .3.235782 l .8 2019-11-03 2019-11-03 Outpatient MELANY [facility] [id number] 291 [place] 00:00:00 00:00:00 LISS [address] 2019-06-22 2019-06-22 Outpatient SHIVA, [facility] [id number] 579 [place] 00:00:00 00:00:00 VIKI [address] 2019-06-01 2019-06-01 Outpatient SHIVA, [facility] [id number] 518 [place] 00:00:00 00:00:00 VIKI [address] 2019-06-01 2019-06-01 Outpatient SHIVA, [facility] [id number] 518 [place] 00:00:00 00:00:00 VIKI [address] 2019-05-11 2019-05-11 Outpatient SHIVA, [facility] [id number] 845 [place] 00:00:00 00:00:[address] VIKI [address] 2019-04-27 2019-04-27 Outpatient SHIVA, [facility] [id number] 960 [place] 00:00:00 00:00:00 VIKI [address] 2019-04-10 2019-04-10 Outpatient SHIVA, [facility] 201 [id number] 291 [place] 00:00:00 00:00:[address] VIKI [address] 2019-02-26 2019-03-05 Inpatient LOTT, [facility] 064 [id number] 80 [place] 00:00:00 00:00:00 AYANA [address] 2019-01-15 2019-01-16 Emergency ADDISON, [facility] 064 [id number] 04 [place] 00:00:00 00:00:00 [facility] Metho randi 2014-02-18 2014-02-18 Office nullFlavo [facility] [id number] 141 [place] 00:00:00 00:00:00 Visit artie Marquez [id number] madhu [facility] 2014-02-18 2014-02-18 Lab Report nullFlavo [facility] 1736 [id number] [place] 00:00:00 00:00:00 artie Marquez [id number] madhu [facility] 2013-01-23 2013-01-23 Lab Report nullFlavo [facility] 1702 [id number] [place] 00:00:00 00:00:00 artie Marquez 000479 madhu [facility] Results Test Description Test Time Test Comments Results Result Sour e Comments - XR CHEST 1 V 2020-05-31 14:08:00 [facility] 1945 Sex: M FAX: Sekou Jeffery [phone] [place]: St: ADM Name: DARIEN HUYNH [facility] [place] : 1945 Age/S: 74/M [address] [place] [address] Blvd Unit #: [id number] Loc: [address] [address] Phys: Sekou Curtis MD Acct: [id number] Dis Date: Status: ADM IN PHONE #: [phone] Exam Date: 05/31/20201405 FAX #: [phone] Reason: HD protocol, need to make sure no TB EXAMS: CPT CODE: [id number] XR CHEST 1 V 86453 EXAM: Single view AP chest. EXAM DATE: 05/31/2020 at 1353 hours CLINICAL HISTORY: HD protocol, need to make sure no TB COMPARISON: None Heart is mildly enlarged.. Atherosclerotic calcifications and tortuosity of the intrathoracic aorta is identified.. Lungs appear free of acute disease. Imaged osseous structures are unremarkable. IMPRESSION: Mild cardiomegaly. No acute pulmonary findings. at 1408 Reported and signed by: Yesika Kumar M.D. CC: Sekou Curtis Technologist: Jude Barbour RT(R) Trnscrd Date/Time/By: 05/31/2020 (0479) : By: Enedelia Orig Print D/T: S: 05/31/2020 (0634) PAGE 1 Signed Report BASIC METABOLIC PANEL 2020-05-30 05:15:00 Test Item Value Reference Range Interpretation Comme nts SODIUM (test code = NA) 141 mEq/L 134-147 N POTASSIUM (test code = K) 3.9 mEq/L 3.4-5.0 N CHLORIDE (test code = CL) 104 mEq/L 100-108 N CARBON DIOXIDE (test code = CO2) 27 mEq/l 21-33 N ANION GAP (test code = GAP) 14 0-20 N GLUCOSE (test code = GLU) 86 mg/dL 70-110 N BLOOD UREA NITROGEN (test code = 45 mg/dL 7-18 H BUN) GLOMERULAR FILTRATION RATE (test 12.6 70-80 L Units of measure = ml/min/1.73 code = GFR) m2 CREATININE (test code = CREAT) 4.6 mg/dL 0.6-1.3 H CALCIUM (test code = CA) 8.5 mg/dL 8.0-10.5 N [id number] 05:15:00 Test Item Value Reference Range Interpretation Comments ALBUMIN (test code = ALB) 3.10 g/dL 3.4-5.0 L [id number] 05:15:00 Test Item Value Reference Range Interpretation Comments PREALBUMIN (test code = PREALB) 27.0 mg/dL 16.0-40.0 N [id number] 23:17:00 Test Item Value Reference Range Interpretation Comments GLUBED (test code = 95 MG/DL 70-110 N Performe d by certified GLUBED) head operator at [facility] BASIC METABOLIC [id number] 09:36:00 Test Item Value Reference Range Interpretation Comments SODIUM (test code = 137 mEq/L 134-147 N NA) POTASSIUM (test code = 3.9 mEq/L 3.4-5.0 N K) CHLORIDE (test code = 99 mEq/L 100-108 L CL) CARBON DIOXIDE (test 28 mEq/l 21-33 N code = CO2) ANION GAP (test code = 13 0-20 N GAP) GLUCOSE (test code = 77 mg/dL 70-110 N GLU) BLOOD UREA NITROGEN 11 mg/dL 7-18 N (test code = BUN) GLOMERULAR FILTRATION 12.9 70-80 L Units of measure = RATE (test code = GFR) ml/mi n/1.73 m2 CREATININE (test code 4.5 mg/dL 0.6-1.3 H = CREAT) CALCIUM (test code = 8.8 mg/dL 8.0-10.5 N Previou sly reported CA) result: 8.2 mg/dLEdited by: [facility] on 05/29/20:278469 / 0935: CA previ ously reported as: 8. 2 mg/dL BASIC METABOLIC [id number] 07:53:00 Test Item Value Reference Range Interpretation Comments SODIUM (test code = NA) 137 mEq/L 134-147 N POTASSIUM (test code = 3.9 mEq/L 3.4-5.0 N K) CHLORIDE (test code = 99 mEq/L 100-108 L CL) CARBON DIOXIDE (test 28 mEq/l 21-33 N code = CO2) ANION GAP (test code = 13 0-20 N GAP) GLUCOSE (test code = 77 mg/dL 70-110 N GLU) BLOOD UREA NITROGEN 11 mg/dL 7-18 N (test code = BUN) GLOMERULAR FILTRATION 12.9 70-80 L Units of measure = RATE (test code = GFR) ml/mi n/1.73 m2 CREATININE (test code = 4.5 mg/dL 0.6-1.3 H CREAT) CALCIUM (test code = 8.2 mg/dL 8.0-10.5 N CA) BASIC METABOLIC [id number] 04:28:00 Test Item Value Reference Range Interpretation Comments SODIUM (test code = NA) 138 mEq/L 134-147 N POTASSIUM (test code = 3.7 mEq/L 3.4-5.0 N K) CHLORIDE (test code = 103 mEq/L 100-108 N CL) CARBON DIOXIDE (test 27 mEq/l 21-33 N code = CO2) ANION GAP (test code = 12 0-20 N GAP) GLUCOSE (test code = 84 mg/dL 70-110 N GLU) BLOOD UREA NITROGEN 41 mg/dL 7-18 H (test code = BUN) GLOMERULAR FILTRATION 13.2 70-80 L Units of measure = RATE (test code = GFR) ml/mi n/1.73 m2 CREATININE (test code = 4.4 mg/dL 0.6-1.3 H CREAT) CALCIUM (test code = 9.3 mg/dL 8.0-10.5 N CA) CBC W/AUTO [id number] 08:31:00 Test Item Value Reference Range Interpretation Comments WHITE BLOOD CELL (test code = 8.4 x10 3/uL 4.5-11.0 N WBC) RED BLOOD CELL (test code = 3.22 x10 6/uL 4.00-5.60 L RBC) HEMOGLOBIN (test code = HGB) 9.2 g/dL 12.5-16.9 L HEMATOCRIT (test code = HCT) 31.3 % 37.5-50.7 L MEAN CELL VOLUME (test code = 97.2 fL 81.0-99.0 MCV) MEAN CELL HGB (test code = MCH) 28.6 pg 27.0-33.0 N MEAN CELL HGB CONCETRATION 29.4 g/dL 33.0-37.0 L (test code = MCHC) RED CELL DISTRIBUTION WIDTH CV 14.5 % 11.5-14.5 N (test code = RDW) RED CELL DISTRIBUTION WIDTH SD 52.1 fL 37.0-54.0 N (test code = RDW-SD) PLATELET COUNT (test code = 356 x10 3/uL 150-400 N PLT) MEAN PLATELET VOLUME (test code 8.6 fL 7.0-9.0 N = MPV) NEUTROPHIL % (test code = NT%) 61.1 % 56.0-77.0 N IMMATURE GRANULOCYTE % (test 0.8 % 0.0-2.0 N code = IG%) LYMPHOCYTE % (test code = LY%) 18.0 % 14.0-32.0 N MONOCYTE % (test code = MO%) 10.5 % 4.8-9.0 H EOSINOPHIL % (test code = EO%) 8.8 % 0.3-3.7 H BASOPHIL % (test code = BA%) 0.8 % 0.0-2.0 N NUCLEATED RBC % (test code = 0.0 % 0-0 N NRBC%) NEUTROPHIL # (test code = NT#) 5.13 x10 3/uL 2.0-7.6 N IMMATURE GRANULOCYTE # (test 0.07 x10 3/uL 0.00-0.03 H code = IG#) LYMPHOCYTE # (test code = LY#) 1.51 x10 3/uL 1.0-3.8 N MONOCYTE # (test code = MO#) 0.88 x10 3/uL 0.1-0.8 H EOSINOPHIL # (test code = EO#) 0.74 x10 3/uL 0.0-0.2 H BASOPHIL # (test code = BA#) 0.07 x10 3/uL 0.0-0.2 N NUCLEATED RBC # (test code = 0.00 x10 3/uL 0.0-0.1 N NRBC#) MANUAL DIFF REQUIRED (test code NO = MDIFF) BASIC METABOLIC [id number] 07:59:00 Test Item Value Reference Range Interpretation Comments SODIUM (test code = NA) 136 mEq/L 134-147 N POTASSIUM (test code = 3.8 mEq/L 3.4-5.0 N K) CHLORIDE (test code = 101 mEq/L 100-108 N CL) CARBON DIOXIDE (test 24 mEq/l 21-33 N code = CO2) ANION GAP (test code = 15 0-20 N GAP) GLUCOSE (test code = 79 mg/dL 70-110 GLU) BLOOD UREA NITROGEN 33 mg/dL 7-18 H (test code = BUN) GLOMERULAR FILTRATION 13.9 70-80 L Units of measure = RATE (test code = GFR) ml/mi n/1.73 m2 CREATININE (test code = 4.2 mg/dL 0.6-1.3 H CREAT) CALCIUM (test code = 8.9 mg/dL 8.0-10.5 N CA) - USG NDL PLACEMENT (Bxg/Asp)2020-05-24 15:12:00 [facility] : 1945 Sex: M Name: DARIEN HUYNH [facility] [place] : 1945 Age/S: 74 / M [address] [place] [address] Unit #: [id number] Loc: [place] [address] Phys: Albaro Sheikhnie NPAcct: [id number] Dis Date: Status: ADM IN PHONE #:[phone] Exam Date: 05/24/2020 1434 FAX #: [phone] Reason: right aka fluid collection EXAMS: CPT CODE: [id number] USG NDL PLACEMENT (Bxg/Asp) 12944 PROCEDURE: Ultrasound-guided right knee stump fluid collection. 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 Informed consent was obtained. Timeout was performed prior to the procedure. Ultrasound was used to evaluate potential access sites. The knee stump was sterilely prepped and draped. 1% lidocaine was used for local anesthesia. Using ultrasound guidance, 18- gauge needle was advanced into the collection. Approximately 15 mL of blood-tinged fluid was aspirated andsample was sent to lab. Upon completion of the procedure, the needle was removed. Pressure was applied at the puncture site with adequate hemostasis. Sterile dressing was applied. There were no evident complications and the patient tolerated procedure well. Performed by:ZIA Marin Supervised and Electronically signed by: Paloma Arvizu DO FINDINGS: Total volume of 15 mL of blood-tinged fluid was removed. IMPRESSION: 1. Technically successful ultrasound-guided aspiration of a right knee stump collection. at 1512 Reported and signed by: Paloma Arvizu D.O. CC: Sekou Curtis; Jonathan Sheikh NP Technologist: Rosemarie Ayon Trnscb Date/Time: 05/24/2020 (151) [email or web address] Orig Print D/T: S: 05/24/2020 (7355) Probe: PAGE 1 Signed Report- CT LOWER EXTRM W/O C [id number] 18:02:00 [facility] 1945 Sex: M Name: DARIEN HUYNH [facility] [place] : 1945 Age/S: 74 / M [address] [place] [address] Blvd Unit #: [id number] Loc: [place] [address] Phys: Jonathan Sheikh NPAcct: [id number] Dis Date: Status: ADM IN PHONE #:[phone] Exam Date: 05/23/2020 1728 FAX #: [phone] Reason: right bka, r/o fluid collection EXAMS: CPT CODE: [id number] [place] L[place]TR[place] W/[place] [address] [place] right femur without contrast. INDICATION: Right below knee amputation. Fluid collection. COMPARISON: None. TECHNIQUE: Noncontrast CT of the femur is performed with thin cut reconstructions in all 3 planes. DOSE: CT imaging performed at this location utilizes radiation dose optimization technique which includes one or more of the followin) Automated exposure control; 2) Adjustment of the mA and/or kV according to patient's size; 3) Use of iterative reconstruction techniques. DLP: 566 mGy-cm FINDINGS: Pxmhz-csh-mixn amputation has been performed. A permeative pattern of much of the remaining visualized femoral cortex is seen although preserved fatty marrow density is present throughoutmuch of the femur. However, at the distal stump site, there is loss of expected intramedullary fatty density. A complex soft tissue fluid collection is present at the stump site with septations or multiple loculations measuring approximately 6 cm AP, 5.7 cm transverse, and 3.8 cm craniocaudal dimension. Surrounding fatty injection is seen. IMPRESSION: A parth the knee amputation changes with complex soft tissue fluid collection at the stump site. There is loss of fatty medullary density at the stump site. Osteomyelitis is not excluded. Correlate with MRI as clinically indicated. SL: SG-H at 1802 Reported and signed by: Dominic Mena M.D. CC: Sekou Curtis; Jonathan Sheikh LENS ENGRAVER Technologist:David Aguirre, RT(R)(CT) CTDI: DLP: Trnscb Date/Time: 05/23/2020 (1801) [email or web address] Orig Print D/T: S: 05/23/2020 (1805) PAGE 1 Signed ReportBASIC METABOLIC [id number] 13:38:00 Test Item Value Reference Range Interpretation Comments SODIUM (test code = NA) 133 mEq/L 134-147 L POTASSIUM (test code = 4.1 mEq/L 3.4-5.0 N K) CHLORIDE (test code = 97 mEq/L 100-108 L CL) CARBON DIOXIDE (test 27 mEq/l 21-33 N code = CO2) ANION GAP (test code = 13 0-20 N GAP) GLUCOSE (test code = 200 mg/dL 70-110 H GLU) BLOOD UREA NITROGEN 54 mg/dL 7-18 H (test code = BUN) GLOMERULAR FILTRATION 12.9 70-80 L Units of measure = RATE (test code = GFR) ml/mi n/1.73 m2 CREATININE (test code = 4.5 mg/dL 0.6-1.3 H CREAT) CALCIUM (test code = 9.6 mg/dL 8.0-10.5 N CA) [id number] 13:38:00 Test Item Value Reference Range Interpretation Comments PHOSPHOROUS (test code = PHOS) 3.9 MG/DL 2.5-4.9 N [id number] 13:36:00 Test Item Value Reference Range Interpretation Comments ALBUMIN (test code = ALB) 3.20 g/dL 3.4-5.0 L [id number] 13:36:00 Test Item Value Reference Range Interpretation Comments PREALBUMIN (test code = PREALB) 14.3 mg/dL 16.0-40.0 L CBC W/AUTO [id number] 13:15:00 Test Item Value Reference Range Interpretation Comments WHITE BLOOD CELL (test code = 9.7 x10 3/uL 4.5-11.0 N WBC) RED BLOOD CELL (test code = 3.31 x10 6/uL 4.00-5.60 L RBC) HEMOGLOBIN (test code = HGB) 9.5 g/dL 12.5-16.9 L HEMATOCRIT (test code = HCT) 29.6 % 37.5-50.7 L MEAN CELL VOLUME (test code = 89.4 fL 81.0-99.0 N MCV) MEAN CELL HGB (test code = MCH) 28.7 pg 27.0-33.0 N MEAN CELL HGB CONCETRATION 32.1 g/dL 33.0-37.0 L (test code = MCHC) RED CELL DISTRIBUTION WIDTH CV 14.4 % 11.5-14.5 N (test code = RDW) RED CELL DISTRIBUTION WIDTH SD 47.8 fL 37.0-54.0 N (test code = RDW-SD) PLATELET COUNT (test code = 395 x10 3/uL 150-400 N PLT) MEAN PLATELET VOLUME (test code 8.3 fL 7.0-9.0 N = MPV) NEUTROPHIL % (test code = NT%) 78.9 % 56.0-77.0 H IMMATURE GRANULOCYTE % (test 0.6 % 0.0-2.0 N code = IG%) LYMPHOCYTE % (test code = LY%) 7.0 % 14.0-32.0 L MONOCYTE % (test code = MO%) 7.2 % 4.8-9.0 N EOSINOPHIL % (test code = EO%) 5.9 % 0.3-3.7 H BASOPHIL % (test code = BA%) 0.4 % 0.0-2.0 N NUCLEATED RBC % (test code = 0.0 % 0-0 N NRBC%) NEUTROPHIL # (test code = NT#) 7.67 x10 3/uL 2.0-7.6 H IMMATURE GRANULOCYTE # (test 0.06 x10 3/uL 0.00-0.03 H code = IG#) LYMPHOCYTE # (test code = LY#) 0.68 x10 3/uL 1.0-3.8 L MONOCYTE # (test code = MO#) 0.70 x10 3/uL 0.1-0.8 N EOSINOPHIL # (test code = EO#) 0.57 x10 3/uL 0.0-0.2 H BASOPHIL # (test code = BA#) 0.04 x10 3/uL 0.0-0.2 N NUCLEATED RBC # (test code = 0.00 x10 3/uL 0.0-0.1 N NRBC#) MANUAL DIFF REQUIRED (test code NO = MDIFF) SED RATE [id number] 08:19:00 Test Item Value Reference Range Interpretation Comments SED RATE WESTERGREN (test code = 114 mm/hr 0-15 H SEDW) [id number] 08:09:00 Test Item Value Reference Range Interpretation Comments PREALBUMIN (test code = PREALB) 13.1 mg/dL 16.0-40.0 L C REACTIVE [id number] 08:08:00 Test Item Value Reference Range Interpretation Comments C REACTIVE PROTEIN (test code = 192.0 mg/L <10.0 H CRP) CBC W/AUTO [id number] 07:57:00 Test Item Value Reference Range Interpretation Comments WHITE BLOOD CELL (test code = 12.5 x10 3/uL 4.5-11.0 H WBC) RED BLOOD CELL (test code = 3.42 x10 6/uL 4.00-5.60 L RBC) HEMOGLOBIN (test code = HGB) 9.9 g/dL 12.5-16.9 L HEMATOCRIT (test code = HCT) 31.1 % 37.5-50.7 L MEAN CELL VOLUME (test code = 90.9 fL 81.0-99.0 N MCV) MEAN CELL HGB (test code = MCH) 28.9 pg 27.0-33.0 N MEAN CELL HGB CONCETRATION 31.8 g/dL 33.0-37.0 L (test code = MCHC) RED CELL DISTRIBUTION WIDTH CV 14.6 % 11.5-14.5 H (test code = RDW) RED CELL DISTRIBUTION WIDTH SD 49.0 fL 37.0-54.0 N (test code = RDW-SD) PLATELET COUNT (test code = 412 x10 3/uL 150-400 H PLT) MEAN PLATELET VOLUME (test code 8.6 fL 7.0-9.0 N = MPV) NEUTROPHIL % (test code = NT%) 75.3 % 56.0-77.0 N IMMATURE GRANULOCYTE % (test 0.6 % 0.0-2.0 N code = IG%) LYMPHOCYTE % (test code = LY%) 7.6 % 14.0-32.0 L MONOCYTE % (test code = MO%) 9.8 % 4.8-9.0 H EOSINOPHIL % (test code = EO%) 6.3 % 0.3-3.7 H BASOPHIL % (test code = BA%) 0.4 % 0.0-2.0 N NUCLEATED RBC % (test code = 0.0 % 0-0 N NRBC%) NEUTROPHIL # (test code = NT#) 9.40 x10 3/uL 2.0-7.6 H IMMATURE GRANULOCYTE # (test 0.08 x10 3/uL 0.00-0.03 H code = IG#) LYMPHOCYTE # (test code = LY#) 0.95 x10 3/uL 1.0-3.8 L MONOCYTE # (test code = MO#) 1.23 x10 3/uL 0.1-0.8 H EOSINOPHIL # (test code = EO#) 0.79 x10 3/uL 0.0-0.2 H BASOPHIL # (test code = BA#) 0.05 x10 3/uL 0.0-0.2 N NUCLEATED RBC # (test code = 0.00 x10 3/uL 0.0-0.1 N NRBC#) MANUAL DIFF REQUIRED (test code NO = MDIFF) - XR HIP W/PEL UNI 2+V [id number] 18:35:00 [facility] : 1945 Sex: M FAX: Sekou Jeffery [phone] [place]: St: ADM FAX: Dusty Smiley [phone] Name: DARIEN HUYNH [facility] : 1945 Age/S: 74/[place] [address] [place] [address] Unit #: [id number] Loc: [address] [address] Phys: Dusty Smiley LENS ENGRAVER Acct: [id number] Dis Date: Status: ADM IN PHONE #: [phone] Exam Date: 05/21/2020 1735 FAX #: [phone] Reason: left hip pain EXAMS:CPT CODE: [id number] XR HIP W/PEL UNI 2+[place] [address] 2+ RADIOGRAPHIC VIEWS LEFT HIP INDICATION: left hip pain. TECHNIQUE: 2+ radiographic views left hip COMPARISONS: None. FINDINGS: There is no acute osseous fracture or dislocation. The hip joint spaces are preserved. There is mildenthesopathy of the left iliac crest. There are benign vascular calcifications in the pelvis. There are surgical clips in the right abdomen. There is no subcutaneous emphysema or unintentional retained radiodense foreign body. IMPRESSION: 1. There is no acute osseous fracture or dislocation. The hipjoint spaces are preserved. at 1835 Reported and signed by: James Kitchen D.O. CC: Sekou Curtis; Dusty Smiley NP Technologist: RT Jesus(R) Trnscrd Date/Time/By: 05/21/2020 (1835) : By: [email or web address] Orig Print D/T: S: 05/21/2020 (7450) PAGE 1 Signed Report[facility]AUTO DIFF 2020-05-21 07:47:00 Test Item Value Reference Range Interpretation Comments WHITE BLOOD CELL (test code = 12.3 x10 3/uL 4.5-11.0 H WBC) RED BLOOD CELL (test code = 3.09 x10 6/uL 4.00-5.60 L RBC) HEMOGLOBIN (test code = HGB) 8.9 g/dL 12.5-16.9 L HEMATOCRIT (test code = HCT) 28.3 % 37.5-50.7 L MEAN CELL VOLUME (test code = 91.6 fL 81.0-99.0 N MCV) MEAN CELL HGB (test code = MCH) 28.8 pg 27.0-33.0 N MEAN CELL HGB CONCETRATION 31.4 g/dL 33.0-37.0 L (test code = MCHC) RED CELL DISTRIBUTION WIDTH CV 14.4 % 11.5-14.5 N (test code = RDW) RED CELL DISTRIBUTION WIDTH SD 48.5 fL 37.0-54.0 N (test code = RDW-SD) PLATELET COUNT (test code = 373 x10 3/uL 150-400 N PLT) MEAN PLATELET VOLUME (test code 8.8 fL 7.0-9.0 N = MPV) NEUTROPHIL % (test code = NT%) 74.4 % 56.0-77.0 N IMMATURE GRANULOCYTE % (test 0.5 % 0.0-2.0 N code = IG%) LYMPHOCYTE % (test code = LY%) 9.4 % 14.0-32.0 L MONOCYTE % (test code = MO%) 10.2 % 4.8-9.0 H EOSINOPHIL % (test code = EO%) 5.2 % 0.3-3.7 H BASOPHIL % (test code = BA%) 0.3 % 0.0-2.0 N NUCLEATED RBC % (test code = 0.0 % 0-0 N NRBC%) NEUTROPHIL # (test code = NT#) 9.13 x10 3/uL 2.0-7.6 H IMMATURE GRANULOCYTE # (test 0.06 x10 3/uL 0.00-0.03 H code = IG#) LYMPHOCYTE # (test code = LY#) 1.16 x10 3/uL 1.0-3.8 N MONOCYTE # (test code = MO#) 1.25 x10 3/uL 0.1-0.8 H EOSINOPHIL # (test code = EO#) 0.64 x10 3/uL 0.0-0.2 H BASOPHIL # (test code = BA#) 0.04 x10 3/uL 0.0-0.2 N NUCLEATED RBC # (test code = 0.00 x10 3/uL 0.0-0.1 N NRBC#) MANUAL DIFF REQUIRED (test code NO = MDIFF) BASIC METABOLIC [id number] 07:40:00 Test Item Value Reference Range Interpretation Comments SODIUM (test code = NA) 137 mEq/L 134-147 N POTASSIUM (test code = 3.6 mEq/L 3.4-5.0 N K) CHLORIDE (test code = 97 mEq/L 100-108 L CL) CARBON DIOXIDE (test 32 mEq/l 21-33 N code = CO2) ANION GAP (test code = 11 0-20 N GAP) GLUCOSE (test code = 84 mg/dL 70-110 N GLU) BLOOD UREA NITROGEN 31 mg/dL 7-18 H (test code = BUN) GLOMERULAR FILTRATION 17.8 70-80 L Units of measure = RATE (test code = GFR) ml/mi n/1.73 m2 CREATININE (test code = 3.4 mg/dL 0.6-1.3 H CREAT) CALCIUM (test code = 9.1 mg/dL 8.0-10.5 N CA) COMPREHENSIVE METABOLIC [id number] 06:03:00 Test Item Value Reference Range Interpretation Comments SODIUM (test code = NA) 134 mEq/L 134-147 N POTASSIUM (test code = 3.8 mEq/L 3.4-5.0 N K) CHLORIDE (test code = 96 mEq/L 100-108 L CL) CARBON DIOXIDE (test 30 mEq/l 21-33 N code = CO2) ANION GAP (test code = 12 0-20 N GAP) GLUCOSE (test code = 88 mg/dL 70-110 N GLU) BLOOD UREA NITROGEN 44 mg/dL 7-18 H (test code = BUN) GLOMERULAR FILTRATION 13.9 70-80 L Units of measure = RATE (test code = GFR) ml/mi n/1.73 m2 CREATININE (test code = 4.2 mg/dL 0.6-1.3 H CREAT) TOTAL PROTEIN (test 6.9 g/dL 6.4-8.2 N code = PROT) ALBUMIN (test code = 3.20 g/dL 3.4-5.0 L ALB) CALCIUM (test code = 9.2 mg/dL 8.0-10.5 N CA) BILIRUBIN TOTAL (test 0.60 mg/dL 0.0-1.0 N code = BILT) SGOT/AST (test code = 14 IUnit/L 15-37 L AST) SGPT/ALT (test code = 9 IUnit/L 30-65 L ALT) ALKALINE PHOSPHATASE 104 IUnit/L 20-125 N TOTAL (test code = ALKP) CBC W/AUTO [id number] 05:49:00 Test Item Value Reference Range Interpretation Comments WHITE BLOOD CELL (test code = 12.9 x10 3/uL 4.5-11.0 H WBC) RED BLOOD CELL (test code = 3.11 x10 6/uL 4.00-5.60 L RBC) HEMOGLOBIN (test code = HGB) 9.0 g/dL 12.5-16.9 L HEMATOCRIT (test code = HCT) 28.2 % 37.5-50.7 L MEAN CELL VOLUME (test code = 90.7 fL 81.0-99.0 N MCV) MEAN CELL HGB (test code = MCH) 28.9 pg 27.0-33.0 N MEAN CELL HGB CONCETRATION 31.9 g/dL 33.0-37.0 L (test code = MCHC) RED CELL DISTRIBUTION WIDTH CV 14.5 % 11.5-14.5 N (test code = RDW) RED CELL DISTRIBUTION WIDTH SD 48.6 fL 37.0-54.0 N (test code = RDW-SD) PLATELET COUNT (test code = 316 x10 3/uL 150-400 N PLT) MEAN PLATELET VOLUME (test code 8.4 fL 7.0-9.0 N = MPV) NEUTROPHIL % (test code = NT%) 75.0 % 56.0-77.0 N IMMATURE GRANULOCYTE % (test 0.6 % 0.0-2.0 N code = IG%) LYMPHOCYTE % (test code = LY%) 7.0 % 14.0-32.0 L MONOCYTE % (test code = MO%) 10.3 % 4.8-9.0 H EOSINOPHIL % (test code = EO%) 6.9 % 0.3-3.7 H BASOPHIL % (test code = BA%) 0.2 % 0.0-2.0 N NUCLEATED RBC % (test code = 0.0 % 0-0 N NRBC%) NEUTROPHIL # (test code = NT#) 9.64 x10 3/uL 2.0-7.6 H IMMATURE GRANULOCYTE # (test 0.08 x10 3/uL 0.00-0.03 H code = IG#) LYMPHOCYTE # (test code = LY#) 0.90 x10 3/uL 1.0-3.8 L MONOCYTE # (test code = MO#) 1.32 x10 3/uL 0.1-0.8 H EOSINOPHIL # (test code = EO#) 0.89 x10 3/uL 0.0-0.2 H BASOPHIL # (test code = BA#) 0.03 x10 3/uL 0.0-0.2 N NUCLEATED RBC # (test code = 0.00 x10 3/uL 0.0-0.1 N NRBC#) MANUAL DIFF REQUIRED (test code NO = MDIFF) BASIC METABOLIC [id number] 08:43:00 Test Item Value Reference Range Interpretation Comments SODIUM (test code = NA) 139 mEq/L 134-147 N POTASSIUM (test code = 4.2 mEq/L 3.4-5.0 N K) CHLORIDE (test code = 104 mEq/L 100-108 N CL) CARBON DIOXIDE (test 28 mEq/l 21-33 N code = CO2) ANION GAP (test code = 11 0-20 N GAP) GLUCOSE (test code = 87 mg/dL 70-110 N GLU) BLOOD UREA NITROGEN 36 mg/dL 7-18 H (test code = BUN) GLOMERULAR FILTRATION 17.2 70-80 L Units of measure = RATE (test code = GFR) ml/mi n/1.73 m2 CREATININE (test code = 3.5 mg/dL 0.6-1.3 H CREAT) CALCIUM (test code = 9.0 mg/dL 8.0-10.5 N CA) [id number] 08:43:00 Test Item Value Reference Range Interpretation Comments PHOSPHOROUS (test code = PHOS) 4.7 MG/DL 2.5-4.9 N CBC W/AUTO [id number] 08:29:00 Test Item Value Reference Range Interpretation Comments WHITE BLOOD CELL (test code = 9.0 x10 3/uL 4.5-11.0 N WBC) RED BLOOD CELL (test code = 2.94 x10 6/uL 4.00-5.60 L RBC) HEMOGLOBIN (test code = HGB) 8.6 g/dL 12.5-16.9 L HEMATOCRIT (test code = HCT) 27.4 % 37.5-50.7 L MEAN CELL VOLUME (test code = 93.2 fL 81.0-99.0 N MCV) MEAN CELL HGB (test code = MCH) 29.3 pg 27.0-33.0 N MEAN CELL HGB CONCETRATION 31.4 g/dL 33.0-37.0 L (test code = MCHC) RED CELL DISTRIBUTION WIDTH CV 14.8 % 11.5-14.5 H (test code = RDW) RED CELL DISTRIBUTION WIDTH SD 50.9 fL 37.0-54.0 N (test code = RDW-SD) PLATELET COUNT (test code = 298 x10 3/uL 150-400 N PLT) MEAN PLATELET VOLUME (test code 8.8 fL 7.0-9.0 N = MPV) NEUTROPHIL % (test code = NT%) 66.1 % 56.0-77.0 N IMMATURE GRANULOCYTE % (test 0.2 % 0.0-2.0 N code = IG%) LYMPHOCYTE % (test code = LY%) 11.9 % 14.0-32.0 L MONOCYTE % (test code = MO%) 9.0 % 4.8-9.0 N EOSINOPHIL % (test code = EO%) 12.6 % 0.3-3.7 H BASOPHIL % (test code = BA%) 0.2 % 0.0-2.0 N NUCLEATED RBC % (test code = 0.0 % 0-0 N NRBC%) NEUTROPHIL # (test code = NT#) 5.96 x10 3/uL 2.0-7.6 N IMMATURE GRANULOCYTE # (test 0.02 x10 3/uL 0.00-0.03 N code = IG#) LYMPHOCYTE # (test code = LY#) 1.07 x10 3/uL 1.0-3.8 N MONOCYTE # (test code = MO#) 0.81 x10 3/uL 0.1-0.8 H EOSINOPHIL # (test code = EO#) 1.14 x10 3/uL 0.0-0.2 H BASOPHIL # (test code = BA#) 0.02 x10 3/uL 0.0-0.2 N NUCLEATED RBC # (test code = 0.00 x10 3/uL 0.0-0.1 N NRBC#) MANUAL DIFF REQUIRED (test code NO = MDIFF) BASIC METABOLIC [id number] 07:42:00 Test Item Value Reference Range Interpretation Comments SODIUM (test code = NA) 142 mEq/L 134-147 N POTASSIUM (test code = 4.1 mEq/L 3.4-5.0 N K) CHLORIDE (test code = 107 mEq/L 100-108 N CL) CARBON DIOXIDE (test 28 mEq/l 21-33 N code = CO2) ANION GAP (test code = 11 0-20 N GAP) GLUCOSE (test code = 85 mg/dL 70-110 N GLU) BLOOD UREA NITROGEN 20 mg/dL 7-18 H (test code = BUN) GLOMERULAR FILTRATION 24.2 70-80 L Units of measure = RATE (test code = GFR) ml/mi n/1.73 m2 CREATININE (test code = 2.6 mg/dL 0.6-1.3 H CREAT) CALCIUM (test code = 9.5 mg/dL 8.0-10.5 N CA) BASIC METABOLIC [id number] 09:55:00 Test Item Value Reference Range Interpretation Comments SODIUM (test code = NA) 138 mEq/L 134-147 N POTASSIUM (test code = 4.4 mEq/L 3.4-5.0 N K) CHLORIDE (test code = 104 mEq/L 100-108 N CL) CARBON DIOXIDE (test 31 mEq/l 21-33 N code = CO2) ANION GAP (test code = 8 0-20 N GAP) GLUCOSE (test code = 92 mg/dL 70-110 N GLU) BLOOD UREA NITROGEN 37 mg/dL 7-18 H (test code = BUN) GLOMERULAR FILTRATION 16.1 70-80 L Units of measure = RATE (test code = GFR) ml/mi n/1.73 m2 CREATININE (test code = 3.7 mg/dL 0.6-1.3 H CREAT) CALCIUM (test code = 8.7 mg/dL 8.0-10.5 N CA) [id number] 09:55:00 Test Item Value Reference Range Interpretation Comments PHOSPHOROUS (test code = PHOS) 5.2 MG/DL 2.5-4.9 H [id number] 09:55:00 Test Item Value Reference Range Interpretation Comments MAGNESIUM (test code = MAG) 1.89 mg/dL 1.80-2.40 N CBC W/AUTO [id number] 09:28:00 Test Item Value Reference Range Interpretation Comments WHITE BLOOD CELL (test code = x10 3/uL 4.5-11.0 WBC) RED BLOOD CELL (test code = RBC) x10 6/uL 4.00-5.60 HEMOGLOBIN (test code = HGB) g/dL 12.5-16.9 HEMATOCRIT (test code = HCT) % 37.5-50.7 MEAN CELL VOLUME (test code = fL 81.0-99.0 MCV) MEAN CELL HGB (test code = MCH) pg 27.0-33.0 MEAN CELL HGB CONCETRATION (test g/dL 33.0-37.0 code = MCHC) RED CELL DISTRIBUTION WIDTH CV % 11.5-14.5 (test code = RDW) PLATELET COUNT (test code = PLT) 264 x10 3/uL 150-400 N NEUTROPHIL % (test code = NT%) % 56.0-77.0 LYMPHOCYTE % (test code = LY%) % 14.0-32.0 NEUTROPHIL # (test code = NT#) x10 3/uL 2.0-7.6 LYMPHOCYTE # (test code = LY#) x10 3/uL 1.0-3.8 MANUAL DIFF REQUIRED (test code = MDIFF) CBC W/AUTO [id number] 09:28:00 Test Item Value Reference Range Interpretation Comments WHITE BLOOD CELL (test code = 8.8 x10 3/uL 4.5-11.0 N WBC) RED BLOOD CELL (test code = 2.86 x10 6/uL 4.00-5.60 L RBC) HEMOGLOBIN (test code = HGB) 8.5 g/dL 12.5-16.9 L HEMATOCRIT (test code = HCT) 27.4 % 37.5-50.7 L MEAN CELL VOLUME (test code = 95.8 fL 81.0-99.0 N MCV) MEAN CELL HGB (test code = MCH) 29.7 pg 27.0-33.0 N MEAN CELL HGB CONCETRATION 31.0 g/dL 33.0-37.0 L (test code = MCHC) RED CELL DISTRIBUTION WIDTH CV 14.9 % 11.5-14.5 H (test code = RDW) RED CELL DISTRIBUTION WIDTH SD 52.6 fL 37.0-54.0 N (test code = RDW-SD) PLATELET COUNT (test code = 264 x10 3/uL 150-400 N PLT) MEAN PLATELET VOLUME (test code 8.8 fL 7.0-9.0 N = MPV) NEUTROPHIL % (test code = NT%) 64.9 % 56.0-77.0 N IMMATURE GRANULOCYTE % (test 0.3 % 0.0-2.0 N code = IG%) LYMPHOCYTE % (test code = LY%) 11.5 % 14.0-32.0 L MONOCYTE % (test code = MO%) 9.5 % 4.8-9.0 H EOSINOPHIL % (test code = EO%) 13.3 % 0.3-3.7 H BASOPHIL % (test code = BA%) 0.5 % 0.0-2.0 N NUCLEATED RBC % (test code = 0.0 % 0-0 N NRBC%) NEUTROPHIL # (test code = NT#) 5.71 x10 3/uL 2.0-7.6 N IMMATURE GRANULOCYTE # (test 0.03 x10 3/uL 0.00-0.03 N code = IG#) LYMPHOCYTE # (test code = LY#) 1.01 x10 3/uL 1.0-3.8 N MONOCYTE # (test code = MO#) 0.84 x10 3/uL 0.1-0.8 H EOSINOPHIL # (test code = EO#) 1.17 x10 3/uL 0.0-0.2 H BASOPHIL # (test code = BA#) 0.04 x10 3/uL 0.0-0.2 N NUCLEATED RBC # (test code = 0.00 x10 3/uL 0.0-0.1 N NRBC#) MANUAL DIFF REQUIRED (test code NO = MDIFF) ACUTE HEPATITIS [id number] 13:08:00 Test Item Value Reference Range Interpretation Comments AB HEPATITIS A IGM (test NON REACTIVE INDEX NON REACT. code = HAVMAB) AG HEPATITIS B SURFACE NON REACTIVE INDEX NonReactive (test code = HBSAG) AB HEPATITIS B CORE IGM NON REACTIVE INDEX NON REACT. (test code = HBCMAB) AB HEPATITIS C (test code NON REACTIVE INDEX NON REACT. = HCVAB) COMMENTS: At start of hemodialysisAB HEPATITIS B [id number] 13:08:00 Test Item Value Reference Range Interpretation Comments AB HEPATITIS B 22.1 mIU/mL See_Comment Status of I mmunity SURFACE (test code = HBSAB) Anti-HBs Level --- I nconsis tent with Immun ity 0 .0 - 9.9Consistent w ith Immunity >9.9Performed A t: HD [facility] [address] [id number] jaswinder Peralta MD Ph:[phone] [Automated mess age] The system [email or web address] generated this result transmitted ref erence range: Immunity >9.9. The reference r za was not used to interpret this result as normal/abnor mal. COMMENTS: At start of hemodialysisACUTE HEPATITIS [id number] 10:00:00 Test Item Value Reference Range Interpretation Comments AB HEPATITIS A IGM (test NON REACTIVE INDEX NON REACT. code = HAVMAB) AG HEPATITIS B SURFACE NON REACTIVE INDEX NonReactive (test code = HBSAG) AB HEPATITIS B CORE IGM NON REACTIVE INDEX NON REACT. (test code = HBCMAB) AB HEPATITIS C (test code NON REACTIVE INDEX NON REACT. = HCVAB) COMMENTS: At start of hemodialysisAB HEPATITIS B [id number] 10:00:00 Test Item Value Reference Range Interpretation Comments AB HEPATITIS B SURFACE (test code = HBSAB) COMMENTS: At start of hemodialysisBASIC METABOLIC [id number] 09:23:00 Test Item Value Reference Range Interpretation Comments SODIUM (test code = NA) 138 mEq/L 134-147 N POTASSIUM (test code = 4.1 mEq/L 3.4-5.0 K) CHLORIDE (test code = 105 mEq/L 100-108 N CL) CARBON DIOXIDE (test 27 mEq/l 21-33 N code = CO2) ANION GAP (test code = 10 0-20 N GAP) GLUCOSE (test code = 89 mg/dL 70-110 N GLU) BLOOD UREA NITROGEN 23 mg/dL 7-18 H (test code = BUN) GLOMERULAR FILTRATION 20.6 70-80 L Units of measure = RATE (test code = GFR) ml/mi n/1.73 m2 CREATININE (test code = 3.0 mg/dL 0.6-1.3 H CREAT) CALCIUM (test code = 8.5 mg/dL 8.0-10.5 N CA) CBC W/AUTO [id number] 09:16:00 Test Item Value Reference Range Interpretation Comments WHITE BLOOD CELL (test code = 9.1 x10 3/uL 4.5-11.0 N WBC) RED BLOOD CELL (test code = 2.80 x10 6/uL 4.00-5.60 L RBC) HEMOGLOBIN (test code = HGB) 8.2 g/dL 12.5-16.9 L HEMATOCRIT (test code = HCT) 26.2 % 37.5-50.7 L MEAN CELL VOLUME (test code = 93.6 fL 81.0-99.0 N MCV) MEAN CELL HGB (test code = MCH) 29.3 pg 27.0-33.0 N MEAN CELL HGB CONCETRATION 31.3 g/dL 33.0-37.0 L (test code = MCHC) RED CELL DISTRIBUTION WIDTH CV 15.6 % 11.5-14.5 H (test code = RDW) RED CELL DISTRIBUTION WIDTH SD 53.9 fL 37.0-54.0 N (test code = RDW-SD) PLATELET COUNT (test code = 265 x10 3/uL 150-400 N PLT) MEAN PLATELET VOLUME (test code 9.1 fL 7.0-9.0 H = MPV) NEUTROPHIL % (test code = NT%) 70.1 % 56.0-77.0 N IMMATURE GRANULOCYTE % (test 0.2 % 0.0-2.0 N code = IG%) LYMPHOCYTE % (test code = LY%) 11.2 % 14.0-32.0 L MONOCYTE % (test code = MO%) 11.0 % 4.8-9.0 H EOSINOPHIL % (test code = EO%) 7.2 % 0.3-3.7 H BASOPHIL % (test code = BA%) 0.3 % 0.0-2.0 N NUCLEATED RBC % (test code = 0.0 % 0-0 N NRBC%) NEUTROPHIL # (test code = NT#) 6.38 x10 3/uL 2.0-7.6 N IMMATURE GRANULOCYTE # (test 0.02 x10 3/uL 0.00-0.03 N code = IG#) LYMPHOCYTE # (test code = LY#) 1.02 x10 3/uL 1.0-3.8 N MONOCYTE # (test code = MO#) 1.00 x10 3/uL 0.1-0.8 H EOSINOPHIL # (test code = EO#) 0.66 x10 3/uL 0.0-0.2 H BASOPHIL # (test code = BA#) 0.03 x10 3/uL 0.0-0.2 N NUCLEATED RBC # (test code = 0.00 x10 3/uL 0.0-0.1 N NRBC#) MANUAL DIFF REQUIRED (test code NO = MDIFF) RENAL FUNCTION [id number] 06:58:00 Test Item Value Reference Range Interpretation Comments SODIUM (test code = NA) 137 mEq/L 134-147 N POTASSIUM (test code = 3.2 mEq/L 3.4-5.0 L K) CHLORIDE (test code = 102 mEq/L 100-108 N CL) CARBON DIOXIDE (test 28 mEq/l 21-33 N code = CO2) ANION GAP (test code = 10 0-20 N GAP) GLUCOSE (test code = 87 mg/dL 70-110 N GLU) BLOOD UREA NITROGEN 23 mg/dL 7-18 H (test code = BUN) GLOMERULAR FILTRATION 23.2 70-80 L Units of measure = RATE (test code = GFR) ml/mi n/1.73 m2 CREATININE (test code = 2.7 mg/dL 0.6-1.3 H CREAT) ALBUMIN (test code = 3.20 g/dL 3.4-5.0 L ALB) CALCIUM (test code = CA) 8.5 mg/dL 8.0-10.5 N PHOSPHOROUS (test code = 3.0 MG/DL 2.5-4.9 N PHOS) [id number] 06:58:00 Test Item Value Reference Range Interpretation Comments MAGNESIUM (test code = MAG) 1.81 mg/dL 1.80-2.40 N CBC W/AUTO [id number] 06:49:00 Test Item Value Reference Range Interpretation Comments WHITE BLOOD CELL (test code = 9.8 x10 3/uL 4.5-11.0 N WBC) RED BLOOD CELL (test code = 2.72 x10 6/uL 4.00-5.60 L RBC) HEMOGLOBIN (test code = HGB) 8.2 g/dL 12.5-16.9 L HEMATOCRIT (test code = HCT) 25.6 % 37.5-50.7 L MEAN CELL VOLUME (test code = 94.1 fL 81.0-99.0 N MCV) MEAN CELL HGB (test code = MCH) 30.1 pg 27.0-33.0 N MEAN CELL HGB CONCETRATION 32.0 g/dL 33.0-37.0 L (test code = MCHC) RED CELL DISTRIBUTION WIDTH CV 15.2 % 11.5-14.5 H (test code = RDW) RED CELL DISTRIBUTION WIDTH SD 52.5 fL 37.0-54.0 N (test code = RDW-SD) PLATELET COUNT (test code = 244 x10 3/uL 150-400 N PLT) MEAN PLATELET VOLUME (test code 9.1 fL 7.0-9.0 H = MPV) NEUTROPHIL % (test code = NT%) 72.4 % 56.0-77.0 N IMMATURE GRANULOCYTE % (test 0.4 % 0.0-2.0 N code = IG%) LYMPHOCYTE % (test code = LY%) 9.1 % 14.0-32.0 L MONOCYTE % (test code = MO%) 11.0 % 4.8-9.0 H EOSINOPHIL % (test code = EO%) 6.8 % 0.3-3.7 H BASOPHIL % (test code = BA%) 0.3 % 0.0-2.0 N NUCLEATED RBC % (test code = 0.0 % 0-0 N NRBC%) NEUTROPHIL # (test code = NT#) 7.06 x10 3/uL 2.0-7.6 N IMMATURE GRANULOCYTE # (test 0.04 x10 3/uL 0.00-0.03 H code = IG#) LYMPHOCYTE # (test code = LY#) 0.89 x10 3/uL 1.0-3.8 L MONOCYTE # (test code = MO#) 1.07 x10 3/uL 0.1-0.8 H EOSINOPHIL # (test code = EO#) 0.66 x10 3/uL 0.0-0.2 H BASOPHIL # (test code = BA#) 0.03 x10 3/uL 0.0-0.2 N NUCLEATED RBC # (test code = 0.00 x10 3/uL 0.0-0.1 N NRBC#) MANUAL DIFF REQUIRED (test code NO = MDIFF) CBC W/AUTO [id number] 06:45:00 Test Item Value Reference Range Interpretation Comments WHITE BLOOD CELL (test code = x10 3/uL 4.5-11.0 WBC) RED BLOOD CELL (test code = RBC) x10 6/uL 4.00-5.60 HEMOGLOBIN (test code = HGB) g/dL 12.5-16.9 HEMATOCRIT (test code = HCT) % 37.5-50.7 MEAN CELL VOLUME (test code = fL 81.0-99.0 MCV) MEAN CELL HGB (test code = MCH) pg 27.0-33.0 MEAN CELL HGB CONCETRATION (test g/dL 33.0-37.0 code = MCHC) RED CELL DISTRIBUTION WIDTH CV % 11.5-14.5 (test code = RDW) PLATELET COUNT (test code = PLT) 244 x10 3/uL 150-400 N NEUTROPHIL % (test code = NT%) % 56.0-77.0 LYMPHOCYTE % (test code = LY%) % 14.0-32.0 NEUTROPHIL # (test code = NT#) x10 3/uL 2.0-7.6 LYMPHOCYTE # (test code = LY#) x10 3/uL 1.0-3.8 MANUAL DIFF REQUIRED (test code = MDIFF) - CT HEAD/BRAIN W/O [id number] 04:29:00 [facility] : 1945 Sex: M Name: DARIEN HUYNH [facility] [place] : 1945 Age/S: 74 / M [address] [place] [address] Blvd Unit #: [id number] Loc: [place] [address] Phys: [id number] Dis Date: Status: ADM IN PHONE #:[phone] Exam Date: 05/13/2020413 FAX #: [phone] Reason: TRAUMA EXAMS: CPT CODE: [id number] CT HEAD/BRAIN W/O CONT 52379 STUDY: - CT HEAD/BRAIN W/O CONT 05/13/2020 5:00 AM Ordering Physician: Fausto Espino MD Patient Name: DARIEN HUYNH MR: [id number] : 1945; Age: 74 years y/o Male Clinical Indication: Head trauma follow-up subdural hematoma. Comparison: CT brain 05/12/2020 at 2213 hours TECHNIQUE: Multiple contiguous transaxial noncontrast CT images were obtained through the head. Coronal and sagittal reformatted images were prepared. CT imaging performed at this location utilizes radiation dose optimization techniques which include one or more of the following: -Automated exposure control -Adjustment of the mA and/or kV according to patient size -Use of iterative reconstruction technique CT Radiation Dose DLP: 609.43 mGy-cm FINDINGS: BRAIN PARENCHYMA: Mild scatter artifact. 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 Fairly stable acute left parafalcine subdural hematoma measuring approximately 9 mm maximum thickness again seen extending into the left te ntorium measuring up to 2 mm maximum thickness. Stable minimal right to left midline shift estimated at 1.5 mm at the level of the septum pellucidum. No interval acute intracranial hemorrhage or infarction. VENTRICLES: The lateral ventricles, third ventricle, fourth ventricle, and basilar cisterns are appropriate for degree of atrophy present. PARANASAL SINUSES: The visualized portions of the paranasal sinuses are clear. PAGE 1 Signed Report (CONTINUED) [facility] 1945 Age/S: 74 / M [address] [place] [address] Bl Unit #: [id number] Loc: [place] [address] Phys: Fausto Espino MD Acct: [id number] Dis Date: Status: ADM IN PHONE #: [phone] Exam Date: FAX #: [phone] Reason: TRAUMA EXAMS: CPT CODE: [id number] CT HEAD/BRAINW/O CONT 94122 <Continued> MASTOIDS: Clear. ORBITS: The globes are stable with an absent right lens. 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 SOFT TISSUES: No significant abnormality. SKULL: No acute fracture or suspicious osseous lesion. IMPRESSION: Mild diffuse age-appropriate atrophy is present associated with mild to moderate nonspecific periventricular low attenuation most consistent with old m icroangiopathic ischemic change. Stable acute left parafalcine subdural hematoma extending into the left tentorium. Minimal left to right midline shift is stable. SL: TPAINTER-H at 0429 Reported and signed by: Anoop Mays M.D. CC: Fausto Espino MD; Bennett Farnsworth MD Technologist:RT Renetta(R)(CT); Edgar CTDI: DLP: Trnscb Date/Time: 05/13/2020 (428) [email or web address] Orig Print D/T: S: 05/13/2020 (0432) PAGE 2 Signed ReportCOVID 19 Asymptomatic IH [id number] 03:09:00 Test Item Value Reference Range Interpretation Comments COVID 19 Asymptomatic Negative Negative A nega tive result is IH AG (test code = presumpti ve and should COVNONPUIAG) be confirmedwit h an FDA authorized mole cular assay, if neces valentino forpatient danielle gement.A positive result does not rule out co-inf ections withother patho gens.This test detects alex th viable (live) and non-viable,SARS -CoV, and SARS-CoV-2. Kasi t performance dep ends on theamount of vi elena (antigen) in th e sample.This kasi t has not been FDA cleare d or approved; the t est hasbeen authori zed by FDA under an Em ergency Use Authorizati on(EUA) for use by labo ratories certified under the CLIA thatmeet the requirements to perform moderate, high or waivedcomplexit y tests. BASIC METABOLIC [id number] 02:14:00 Test Item Value Reference Range Interpretation Comments SODIUM (test code = NA) 139 mEq/L 134-147 N POTASSIUM (test code = 3.8 mEq/L 3.4-5.0 N K) CHLORIDE (test code = 103 mEq/L 100-108 N CL) CARBON DIOXIDE (test 30 mEq/l 21-33 N code = CO2) ANION GAP (test code = 10 0-20 N GAP) GLUCOSE (test code = 96 mg/dL 70-110 N GLU) BLOOD UREA NITROGEN 25 mg/dL 7-18 H (test code = BUN) GLOMERULAR FILTRATION 22.3 70-80 L Units of measure = RATE (test code = GFR) ml/mi n/1.73 m2 CREATININE (test code = 2.8 mg/dL 0.6-1.3 H CREAT) CALCIUM (test code = 8.5 mg/dL 8.0-10.5 N CA) HEPATIC FUNCTION [id number] 02:14:00 Test Item Value Reference Range Interpretation Comments TOTAL PROTEIN (test code = PROT) 6.2 g/dL 6.4-8.2 L ALBUMIN (test code = ALB) 3.30 g/dL 3.4-5.0 L BILIRUBIN TOTAL (test code = 0.40 mg/dL 0.0-1.0 N BILT) BILIRUBIN DIRECT (test code = 0.10 MG/DL 0.0-0.30 N BILD) BILIRUBIN INDIRECT (test code = 0.30 MG/DL BILIND) SGOT/AST (test code = AST) 17 IUnit/L 15-37 N SGPT/ALT (test code = ALT) 13 IUnit/L 30-65 L ALKALINE PHOSPHATASE TOTAL (test 112 IUnit/L 20-125 N code = ALKP) [id number] 02:14:00 Test Item Value Reference Range Interpretation Comments LIPASE (test code = LIP) 185 U/L 13-57 H [id number] 02:14:00 Test Item Value Reference Range Interpretation Comments ALCOHOL (test < 3.0 mg/dL <10 N Ethyl Alcohol code = ALC) Interpretation: 100 mg/dL - Legally Intoxicated 300-400 mg/dL - Severely Intoxi cated >400 mg/dL - Potentially Let halThe pharmacological response to blood alcoho l levels mayvary from in dividual to individual. Signs of intoxicationcan be observed at lev els of 50-100 mg/dL. R esults are for Medical pur poses only, and not f or Legal orEmployment ev aluation purposes. PROTHROMBIN [id number] 02:11:00 Test Item Value Reference Range Interpretation Comments PROTHROMBIN TIME 12.8 SECONDS 9.3-12.9 N PATIENT (test code = PTP) INTERNATIONAL NORMAL 1.2 0.8-1.2 N TARGET RATIO (test code = INR BY IN DICATION INR) Indication INR1. Prophyl axis of venous thrombos is 2.0 - 3. 0 (orthopedic sherita maral), Prophylaxis of venous thrombos is (other than hig h-risk surgery), Antoinette tment of Deep Vein Thrombosis/Pulm onary Embolism, Preve ntion of systemic emb olism - Tissue heart va lves, Acute Myocardia l Infarction (to prevent systemic embo lism), Valvular heart disease, Atri al Fibrillation, Bileaflet mecha nical valve in aortic position.2. Mec hanical prosthetic valv es (high risk), 2.5 - 3.5 Presence of Lupus Anticoagu lant or Antiphospholi pid Antibodies, Pre vention of systemic e mbolism - Acute Myocard ial Infarction (t o prevent recurre nt infarct). THROMBOPLASTIN TIME [id number] 02:11:00 Test Item Value Reference Range Interpretation Comments THROMBOPLASTIN TIME 31.8 Seconds 25.0-39.5 N Ther apeutic PARTIAL (test code = Range: 50.4 - 88.3 PTT) Seconds Effective 05/27/2018 PROTHROMBIN [id number] 02:10:00 Test Item Value Reference Range Interpretation Comments PROTHROMBIN TIME 12.8 SECONDS 9.3-12.9 N PATIENT (test code = PTP) INTERNATIONAL NORMAL 1.2 0.8-1.2 N TARGET RATIO (test code = INR BY IN DICATION INR) Indication INR1. Prophyl axis of venous thrombos is 2.0 - 3. 0 (orthopedic sherita maral), Prophylaxis of venous thrombos is (other than hig h-risk surgery), Antoinette tment of Deep Vein Thrombosis/Pulm onary Embolism, Preve ntion of systemic emb olism - Tissue heart va lves, Acute Myocardia l Infarction (to prevent systemic embo lism), Valvular heart disease, Atri al Fibrillation, Bileaflet mecha nical valve in aortic position.2. Mec hanical prosthetic valv es (high risk), 2.5 - 3.5 Presence of Lupus Anticoagu lant or Antiphospholi pid Antibodies, Pre vention of systemic e mbolism - Acute Myocard ial Infarction (t o prevent recurre nt infarct). THROMBOPLASTIN TIME [id number] 02:10:00 Test Item Value Reference Range Interpretation Comments THROMBOPLASTIN TIME PARTIAL (test Seconds 25.0-39.5 code = PTT) CBC W/AUTO [id number] 01:59:00 Test Item Value Reference Range Interpretation Comments WHITE BLOOD CELL (test code = 9.2 x10 3/uL 4.5-11.0 N WBC) RED BLOOD CELL (test code = 2.74 x10 6/uL 4.00-5.60 L RBC) HEMOGLOBIN (test code = HGB) 8.2 g/dL 12.5-16.9 L HEMATOCRIT (test code = HCT) 26.3 % 37.5-50.7 L MEAN CELL VOLUME (test code = 96.0 fL 81.0-99.0 N MCV) MEAN CELL HGB (test code = MCH) 29.9 pg 27.0-33.0 N MEAN CELL HGB CONCETRATION 31.2 g/dL 33.0-37.0 L (test code = MCHC) RED CELL DISTRIBUTION WIDTH CV 15.2 % 11.5-14.5 H (test code = RDW) RED CELL DISTRIBUTION WIDTH SD 53.0 fL 37.0-54.0 N (test code = RDW-SD) PLATELET COUNT (test code = 243 x10 3/uL 150-400 N PLT) MEAN PLATELET VOLUME (test code 8.9 fL 7.0-9.0 N = MPV) NEUTROPHIL % (test code = NT%) 72.5 % 56.0-77.0 N IMMATURE GRANULOCYTE % (test 0.5 % 0.0-2.0 N code = IG%) LYMPHOCYTE % (test code = LY%) 11.0 % 14.0-32.0 L MONOCYTE % (test code = MO%) 10.4 % 4.8-9.0 H EOSINOPHIL % (test code = EO%) 5.3 % 0.3-3.7 H BASOPHIL % (test code = BA%) 0.3 % 0.0-2.0 N NUCLEATED RBC % (test code = 0.0 % 0-0 N NRBC%) NEUTROPHIL # (test code = NT#) 6.68 x10 3/uL 2.0-7.6 N IMMATURE GRANULOCYTE # (test 0.05 x10 3/uL 0.00-0.03 H code = IG#) LYMPHOCYTE # (test code = LY#) 1.01 x10 3/uL 1.0-3.8 N MONOCYTE # (test code = MO#) 0.96 x10 3/uL 0.1-0.8 H EOSINOPHIL # (test code = EO#) 0.49 x10 3/uL 0.0-0.2 H BASOPHIL # (test code = BA#) 0.03 x10 3/uL 0.0-0.2 N NUCLEATED RBC # (test code = 0.00 x10 3/uL 0.0-0.1 N NRBC#) MANUAL DIFF REQUIRED (test code NO = MDIFF) - CT HEAD/BRAIN W/O [id number] 23:15:00 [facility] 1945 Sex: M Name: DARIEN HUYNH : 1945 Age/S: 74 / M [id number] [address] Unit #: [id number] Loc: [place] [address] Phys: Undefined Provider Acct: [id number] Dis Date: Status: REG REF PHONE #: [phone] Exam Date: 05/12/2020 2218 FAX #: Reason: s/p fall Report Has Been Amended EXAMS: CPT: [id number] CT HEAD/BRAIN W/O CONT 28937 Addendum - 05/12/2020 SIGNED 05/12/[address]: [id number]/CTHDBRWO Findings were notified to greenhouse worker Huyen at 11:15 PM on 05/12/2020. at 2315 Reported and signed by: Kaela Lindsey M.D. Transcribed: 05/12/2020 (2315) [email or web address].SDR.TH15 Report EXAM: - CT HEAD/BRAIN W/O CONT LOCATION: H61 CLINICAL HISTORY/INDICATION: Fall with pain TECHNIQUE: HelicalCT acquisition of the head was obtained without IV contrast. Images were reconstructed in theaxial, sagittal and coronal planes. This examination was performed according to our departmental dose optimization program, which includes automated exposure control, adjustment of the mA and/or kV according to patient size, and/or use of iterative reconstruction technique. COMPARISON: None FINDINGS: SULCI AND VENTRICLES: Appropriate for age. No hydrocephalus. PARENCHYMA: No CT evidence of acute large territorial infarct, parenchymal hemorrhage or mass effect. Beginning to confluent hypodensities in the periventricular and deep cerebral white matter are nonspecific, but are likely moderate chronic small vessel ischemic disease. EXTRA AXIAL SPACE: There is a hyperdense left parafalcine subdural hematoma which extends from the mid to posterior aspect of the interhemispheric fissure. The hematoma measures up to 7 mm in thickness. There is mild local mass effect on the medial left PAGE 1 Signed Report (CONTINUED) Name: DARIEN HUYNH DOB: 1945 Age/S: 74 / M [address] Unit #: [id number] Loc: [place] [id number] Phys: Undefined Provider Acct: [id number] Dis Date: Status: REG REF PHONE #: [phone] Exam Date: 05/12/2020 2214 FAX #: Reason: s/p fall Report Has Been Amended EXAMS: CPT: [id number] CT HEAD/BRAIN W/O CONT 66640 <Continued> frontoparietal lobe without midline shift or transtentorial herniation. SCALP: No abnormalities. BONES: No skull fractures or aggressive calvarial lesions. PARTIALLY IMAGED FACE /PARANASAL SINUSES: Paranasal sinuses are clear. MASTOID AIR CELLS: No effusion. IMPRESSION: 1. Acute 7 mm left parafalcine subdural hematoma without midline shift or transtentorial herniation. 2. Moderate chronic small vessel ischemic disease. at 2251 Reported and signed by: Kaela Lindsey M.D. CC: Technologist:RT Sharon(Artie)(CT); ... CTDI: DLP: Trnscb Date/Time: 05/12/2020 (2250) [email or web address] Orig Print D/T: S: 05/12/2020 (2254) PAGE 2 Signed Report- CT HEAD/BRAIN W/O [id number] 22:51:00 [facility] 1945 Sex: M Name: DARIEN HUYNH [facility] : 1945 Age/S: 74 / M [address] [address] [place] Unit #: [id number] Loc: [place] [address] Phys: Undefined Provider Acct: [id number] Dis Date: Status: REG REF PHONE #: [phone] Exam Date: 05/12/20202213 FAX #: Reason: s/p fall EXAMS: CPT: [id number] CT HEAD/BRAIN W/O CONT 01194 EXAM: -CT HEAD/BRAIN W/O CONT LOCATION: H61 CLINICAL HISTORY/INDICATION: Fall with pain TECHNIQUE: Helical CT acquisition of the head was obtained without IV contrast. Images were reconstructed in the axial, sagittal and coronal planes. This examinationwas performed according to our departmental dose optimization program, which includes automated exposure control, adjustment of the mA and/or kV according to patient size, and/or use of iterative reconstruction technique. COMPARISON: None FINDINGS: SULCI AND VENTRICLES: Appropriate for age. No hydrocephalus. PARENCHYMA: No CTevidence of acute large territorial infarct, parenchymal hemorrhage or mass effect. Beginningto confluent hypodensities in the periventricular and deep cerebral white matter are nonspecific, but are likely moderate chronic small vessel ischemic disease. EXTRA AXIAL SPACE: There is a hyperdense left parafalcine subdural hematoma which extends from the mid to posterior aspect of the interhemispheric fissure. The hematoma measures up to 7 mm inthickness. There is mild local mass effect on the medial left frontoparietal lobe without midline shift or transtentorial herniation. SCALP: No abnormalities. BONES: No skull fractures or aggressive calvarial lesions. PARTIALLY IMAGED FACE /PARANASAL SINUSES: Paranasal sinuses are clear. MASTOID AIR CELLS: No effusion. IMPRESSION: 1. Acute 7 mm left parafalcine subdural hematoma without midline shift or transtentorial herniation. 2. Moderate chronic small vessel ischemic disease. PAGE 1 Signed Report (CONTINUED) Name: DARIEN HUYNH : 1945 Age/S: 74 / M [address] [address] Unit #: [id number] Loc: Tony Flower [address] Phys: Undefined Provider Acct: [id number] Dis Date: Status: REG REF PHONE #: [phone] Exam Date: 05/12/20202213 FAX #: Reason: s/p fall EXAMS: CPT: [id number] CT HEAD/BRAIN W/O CONT 10958 <Continued> Electronically Signedby Armida Lindsey on 05/12/2020 at 2251 Reported and signed by: Kaela Lindsey M.D. CC: Technologist:RT Sharon(R)(CT); ... CTDI: DLP: Trnscb Date/Time: 05/12/2020 (2250) [email or web address] Orig Print D/T: S: 05/12/2020 (2254) PAGE 2 Signed Report- CT C-SPINE W/O [id number] 22:40:00 [facility] : 1945 Sex: M Name: DARIEN HUYNH [facility] : 1945 Age/S: 74 / M [address] [facility] [place] Unit #: [id number] Loc: [place] [address] Phys: Undefined Provider Acct: [id number] Dis Date: Status: REG REF PHONE #: [phone] Exam Date: 05/12/20202213 FAX #: Reason: s/p fall EXAMS: CPT: [id number] CT C-SPINE W/O CONT 37697 EXAM: -CT C-SPINE W/O CONT LOCATION: H61 CLINICAL HISTORY/INDICATION: Fall withpain. COMPARISON: None TECHNIQUE: Axial CT images were obtained of thecervical spine withoutintravenous contrast administration. These were reviewed in both soft tissue and bone algorithms. Coronal and sagittal reformats were obtained from the axial data. This examination was performed according to our departmental dose optimization program, which includes automated exposure control, adjustment of the mA and/or kV according to patient size, and/or use of iterative reconstruction technique. FINDINGS:ALIGNMENT: Loss of normal cervical lordosis. Grade 1 degenerative anterolisthesis at C4-C5. 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 No craniocervical dissociation or fracture. VERTEBRAL BODIES: No compression fractures. FRACTURES: No acute fractures. REGIONAL SOFT TISSUES: Prevertebral and posterior paraspinal soft tissues are unremarkable. SPINAL CANAL: No gross epidural hematoma or mass. UPPER CHEST:Lung apices are clear. DEGENERATIVE CHANGES:Large bridging anterior endplate osteophytes from C2 to C4. Moderate disc height loss at C3-C4. Severe disc height loss at C4-C5, C5- C6, C6-C7 and C7-T1. Severe endplate sclerosis and subchondral cystic changes at C5-C6. C2-C3: Diffuse disc osteophyte complex, bilateral uncovertebral arthrosis and severe right facet arthrosis result in moderate right neural foraminal stenosis, mild left neural foraminal stenosis, but no PAGE 1 Signed Report (CONTINUED) Name: DARIEN HUYNH [facility] : 1945 Age/S: 74 / M [address] Unit #: [id number] Loc: [place] [address] Phys: Undefined Provider Acct: [id number] Dis Date: Status: REG REF PHONE #: [phone] Exam Date: 05/12/2020 9499 FAX #: Reason: s/p fall EXAMS: CPT: [id number] CT C- SPINE W/O CONT 64812 <Continued> spinal canal stenosis. C3-C4: Diffuse disc osteophyte complex and bilateral uncovertebral arthrosis results in severe bilateral neural foraminal stenosis but no spinal canal stenosis. Moderate bilateral facet arthrosis. C4-C5: Grade 1 anterolisthesis. Partial ankylosis of the vertebral bodies. Severe left and moderate right facet arthrosis/hypertrophy. Diffuse disc osteophyte complex and facet arthrosis results in severe bilateral neural foraminal stenosis, but no spinal canal stenosis. C5-C6: Diffuse disc osteophyte complex, bilateral uncovertebral arthrosis, moderate right and mild left facet arthrosis. Constellationof findings result in severe bilateral neural foraminal stenosis, but no spinal canal stenosis. C6-C7: Left central disc osteophyte complex results in mild central spinal canal stenosis. Bilateral uncovertebral arthrosis results in severe bilateral neural foraminal stenosis. C7-T1: Bilateral uncovertebral arthrosis and severe right facet arthrosis contributes to severe bilateral neural foraminal stenosis but no spinal canal stenosis. IMPRESSION: 1. No acute fracture or subluxation. 2. Severe multilevel facet arthr opathy, disc degeneration and uncovertebral arthrosis results in severe multilevel foraminal stenosis, but no high-grade spinal canal stenosis. at 2240 Reported and signed by: Kaela Lindsey M.D. CC: Technologist:RT Sharon(R)(CT); ... CTDI: DLP: Trnscb Date/Time: 05/12/2020 (2239) [email or web address] Orig Print D/T: S: 05/12/2020 (3354) PAGE 2 Signed ReportAFB [id number] 05:13:59 Test Item Value Reference Range Interpretation Comments AFB culture isolate No growth after 6 (test code = 543-9) weeks of incubation. [facility] [id number] 06:15:49 Test Item Value Reference Range Interpretation Comments Fungus culture isolate No growth after 4 (test code = 1441) weeks of incubation. [facility] 1 [id number] 21:39:42EXAMINATION: OR FL < 1 HOUR C-arm fluoroscopy was requested in OR. OPC19 OR ROOM: 10 PROCEDURE: RIGHT ABOVE THE KNEE AMPUTATION START TIME: 1245 END TIME: 1330 FLUORO TIME: 1second DOSAGE: 0.134mGy TECH: olga IMPRESSION: Intraoperative fluoroscopic images. Radiologist was not present during the examination.Separate operative report will be issued by the physician performing the procedure. [id number] Interface, Radiology Results Incoming - 03/28/2020 3:42 PM CST EXAMINATION: OR FL < 1 HOURC- arm fluoroscopy was requested inOR. OPC19 OR ROOM: 10 PROCEDURE: RIGHT ABOVE THE KNEE AMPUTATION START TIME: 1245 END TIME: 1330 FLUORO TIME: 1second DOSAGE: 0.134mGy TECH: jmIMPRESSION:Intraoperative fluoroscopic images. Radiolo gist was not present during the examination.Separate operative report will be issued by the physician performing the procedure.[id number] Anaerobic [id number] 14:47:42 Test Item Value Reference Range Interpretation Comments Anaerobic culture No anaerobic organisms isolate (test code = isolated. 552) [facility] [id number] 07:48:01 Test Item Value Reference Range Interpretation Comments AFB stain (test code = No acid fast bacilli 676-7) (AFB) seen. [facility] [id number] 07:48:01 Test Item Value Reference Range Interpretation Comments Aerobic culture isolate No growth after 3 (test code = 498) days. [facility] [id number] 07:48:01 Test Item Value Reference Range Interpretation Comments Fungus smear (test code = No fungi observed. 1443) [facility] [id number] 07:48:01Gram stain isolateFew WBC'sNo organisms seen Comment: Specimen InformationSpecimen Source: TissueSpecimen Site: Femur: Right femoral canal tissue [facility] [id number] 21:19:54 Test Item Value Reference Range Interpretation Comments Case number (test code = [id number]) Surgical pathology See link below for report (test code = PDF Lab Report 2255) Result status (test code This is Final Report = [id number]) for [id number] [facility] carotid [id number] 00:39:00 [facility] Ultrasound Laboratory Carotid Artery Duplex Report [address] [place] [address] For quality control assessor purposes, the categorization of the degree of the stenosis of this exam is based on criteria described in the IAC carotid stenosis grading white paper( www.intersocietal.org/Vascular) and Shagufta Andrews., Oz Armendariz, et al. Carotid artery stenosis: maya-scale and Doppler US diagnosis--Society of Radiologists in Ultrasound Consensus Conference. Radiology. 2003 Nov; 229(2):340-6. Pat.Name: DARIEN HUYNH Pat.ID: [id number] .Date: 03/23/2020 Refer.MD: BEAR MARIEE MD Exam Time: 11:25:00 AM Study Type:Carotid Height: 68in Weight: 186lb BSA: 1.98 m2 Age: 9 1945,74Y Sex: MALE Sonogrphr: NOEMI Chapman Pat. Stat.:Inpatient Room: [address] Vol: BE, CPT - 4: 98079 Echo Event ID:[id number] Order ID: [id number] Reason for Study:Cervical bruit, no prior carotid artery assessment.History of anemia, ESRD and left arm dialysis. Procedures: Colorflow, Grayscale/2D, Pulsed wave DopplerRace: C SUMMARY: PHYSICAL ASSESSMENT Blood Pulses Carotid Pressure Carotid Temporal BruitRight 117/55 Left AV fistula CAROTID ARTERY SCANRIGHT: There is scatteredhard plaque with intimal thickening in thecommon carotid artery. There is hard and calcified plaque noted in thebulb extending into the internal and external carotid arteries. Thereis antegrade flow noted in the vertebral artery. LEFT: There is scattered hard plaque with intimal thickening inthe common carotid artery. There is hard and calcified plaque withshadowing noted in the bulb extending into the internal carotidartery. The external carotid artery is clear with intimal thickeningnoted. There is antegrade flow noted in the vertebral artery. The leftsubclavian artery is patent with disturbed Doppler signals consistentwith a more distal Arteriovenous fistula (AVF). PRELIMINARY FINDINGS1. 50-69% stenosis of the right internal carotid artery. 2. >50% stenosis of the right external carotidartery.3. Non-stenotic scattered plaque in the right carotid artery. 4. <50% stenosis of the leftinternal carotid artery.5. There is intimal thickening noted throughout the common carotidartery, bilaterally. 6. The left subclavian artery is patent with disturbed Doppler signalsconsistent with a more distal Arteriovenous fistula (AVF). PHYSICIAN INTERPRETATION 1. Moderate (50- 69%) stenosis of right internal carotid artery.2. >50% stenosis of right external carotid artery.3. Non-stenotic calcific plaque in right common carotid artery.4. Mild (<50%) stenosis of left internal carotid artery. 5. Left subclavian artery with significant velocity elevation anddisturbed doppler signal consistent with distal AVF.6. Bilateral vertebral arteries with antegrade flow. --FINDINGS: Carotid Findings: Right Left Verteb.Flw Antegrade Antegrade Subclavian Triphasic Disturbed MEASUREMENTS: DOPPLERRight CCA Dist CCA DistPSV 116 cm/s CCA Dist CCA Dist EDV 20 cm/s CCA Dist EDV 29 cm/sRight CCA Mid CCA Mid PSV 118 cm/s CCA Mid CCA Mid EDV 20 cm/s CCA Mid EDV 25 cm/sRight CCA Prox CCA Prox PSV 108 cm/s CCA Prox CCA Prox EDV 26 cm/s CCA Prox EDV 25 cm/s CCA Prox PSV 92 cm/s Right ECA Prox ECA Prox PSV 183 cm/s ECA Prox ECA Prox EDV 20 cm/s Right ICA Dist ICA Dist PSV 100 cm/s ICA Dist ICA Dist EDV 26 cm/s ICA Dist EDV 33 cm/s ICA Dist PSV 98 cm/s Right ICA Mid ICA Mid PSV 136 cm/s ICA Mid ICA Mid EDV 31cm/s ICA Mid EDV 31 cm/sRight ICA Prox ICA Prox PSV 197 cm/s ICA ProxICA Prox EDV 50 cm/s ICA Prox EDV 35 cm/sRight Vertebral Vertebral PSV 87 cm/s Vertebral Vertebral EDV 26 cm/s Vertebral EDV 14 cm/s Vertebral PSV 53 cm/s Right Subclavian Subclavian PSV 172 cm/s Subclavian EDV 22 cm/sLeftCCA Dist CCA Dist PSV 118 cm/s Left CCA Mid CCA Mid PSV 110 cm/s Left ECA Prox ECA Prox PSV 158 cm/s ECA Prox EDV 23 cm/sLeft ICA Mid ICA Mid ENR530 cm/s Left ICA Prox ICA Prox PSV 125 cm/s Left Subclavian Subclavian PSV 312 cm/s Subclavian EDV 66.6 cm/sRight SCA Prox SCA Prox PSV 172 cm/s SCA Prox EDV 22 cm/sLeft SCA Prox SCA Prox PSV 312 cm/s SCA Prox EDV 66 cm/sRight ICA/CCA Ratio ICA/CCA PSV 1.67 Left ICA/CCA Ratio ICA/CCA PSV 1.14 Signed 03/23/2020 06:39 PMZsolt MD Azul, RPVIInterface, Radiology Results In - 16:40 PM CST Vascular Ultrasound Laboratory Carotid Artery Duplex Report [address] [place] [address] For quality control assessor purposes, the categorization of the degree of the stenosis of this exam is based on criteria described in the IAC carotid stenosis grading white paper( www.intersocietal.org/Vascular) and Araseli Andrews.Eric., Marcello CMarvaB., et al. Carotid artery stenosis: maya-scale and Doppler US diagnosis--Society of Radiologists in Ultrasound Consensus Conference. Radiology. 2003 Nov; 229(2):340-6. Pat.Name: DARIEN HUYNH Pat.ID: [id number] St.Date: 03/23/2020 Refer.MD: BEAR MARIEE MD Exam Time: 11:25:00 AM Study Type:Carotid Height: 68in Weight: 186lb BSA: 1.98 m2 Age: 9 1945,74Y Sex: MALE Sonogrphr: NOEMI Chapman Pat. Stat.:Inpatient Room: [address] Vol: BE, CPT - 4: 43477 Echo Event ID:[id number] Order ID: [id number] Reason for Study:Cervical bruit, no prior carotid artery assessment.History of anemia, ESRD and left arm dialysis.Procedures: Colorflow, Grayscale/2D, Pulsed wave DopplerRace: C SUMMARY: PHYSICAL ASSESSMENT Blood Pulses Carotid Pressure Carotid Temporal BruitRight 117/55 Left AV fistula CAROTID ARTERY SCANRIGHT: There is scattered hard plaque with intimal thickening in thecommon carotid artery. There is hard and calcified plaque noted in thebulb extending into the internal and external carotid arteries. Thereis antegrade flow noted in the vertebral artery. LEFT: There is scattered hard plaque with intimal thickening inthe common carotid artery. There is hard and calcified plaque withshadowing noted in the bulb extending into the internal carotidartery. The external carotid artery is clear with intimal thickeningnoted. There is antegrade flow noted inthe vertebral artery. The leftsubclavian artery is patent with disturbed Doppler signals consistentwith a more distal Arteriovenous fistula (AVF). PRELIMINARY FINDINGS1. 50-69% stenosis of the right internal carotid artery. 2. >50% stenosis of the right external carotid artery.3. Non-stenotic scattered plaque in the right carotid artery. 4. <50% stenosis of the left internal carotid artery.5. There is intimal thickening noted throughout the common carotidartery, bilaterally. 6. The left subclavian artery is patent with disturbed Doppler signalsconsistent with a more distal Arteriovenous fistula (AVF). PHYSICIAN INTERPRETATION 1. Moderate (50-69%) stenosis of right internal carotid artery.2. >50% stenosis of right external carotid artery.3. Non-stenotic calcific plaque in right common carotid artery.4. Mild (<50%) stenosis of left internal carotid artery. 5. Left subclavian artery with significant velocity elevation anddisturbed doppler signal consistent with distal AVF.6. Bilateral v ertebral arteries with antegrade flow. FINDINGS: Carotid Findings: Right Left Verteb.Flw Antegrade Antegrade Subclavian TriphasicDisturbed MEASUREMENTS: ------- DOPPLERRight CCA Dist CCA Dist PSV 116 cm/s CCADist CCA Dist EDV 20 cm/s CCA Dist EDV 29 cm/sRight CCA Mid CCA Mid PSV 118 cm/s CCA Mid CCA Mid EDV 20 cm/s CCA Mid EDV 25 cm/sRight CCA Prox CCA Prox PSV 108 cm/s CCA Prox CCA Prox EDV 26 cm/s CCA Prox EDV 25 cm/s CCA Prox PSV 92 cm/s Right ECA Prox ECA Prox PSV 183 cm/s ECA Prox ECA Prox EDV 20 cm/s Right ICA Dist ICA Dist PSV 100 cm/s ICA Dist ICA Dist EDV 26 cm/s ICA Dist EDV 33 cm/s ICA Dist PSV 98 cm/s Right ICA Mid ICA Mid PSV 136 cm/s ICA Mid ICA Mid EDV 31 cm/s ICA Mid EDV 31 cm/sRight ICA Prox ICA Prox PSV 197 cm/s ICA Prox ICA Prox EDV 50 cm/s ICA Prox EDV 35 cm/sRight Vertebral Vertebral PSV 87 cm/s Vertebral Vertebral EDV 26 cm/s Vertebral EDV 14 cm/s Vertebral PSV 53 cm/s Right Subclavian Subclavian PSV 172 cm/s Subclavian EDV 22 cm/sLeft CCA Dist CCA Dist PSV 118 cm/s Left CCA Mid CCA Mid PSV 110 cm/s Left ECA Prox ECA Prox PSV 158 cm/s ECA Prox EDV 23 cm/sLeft ICA Mid ICA Mid PSV 124 cm/s Left ICA Prox ICA Prox PSV 125 cm/s Left Subclavian Subclavian PSV 312 cm/s Subclavian EDV 66.6 cm/sRight SCA Prox SCA Prox PSV 172 cm/s SCA Prox EDV 22 cm/sLeft SCAProx SCA Prox PSV 312 cm/s SCA Prox EDV 66 cm/sRight ICA/CCA Ratio ICA/CCA PSV 1.67 Left ICA/CCA Ratio ICA/CCA PSV 1.14 Signed 03/23/2020 06:39 PMZsolt Azul MD, [facility]way2021-02-09 19:25:28Tejal Simpson Sing 03/22/2020 1:45 [address] Date/Time: 03/22/2020 1:00 PM Location: OR Performed by: JARRELL/AAAnesthesiologist: Tahmina Mccloud/OBSTETRICIAN AND GYNAECOLOGIST/AA: Tejal SimpsonAuthorized by: Liu Mccloud Urgency: ElectiveDifficult Airway: No Preoxygenated with 100% O2: Yes C-spine Precautions Maintained Throughout: Yes Mask Ventilation: Easy maskFinal Airway Type: Endotracheal airwayFinal Endotracheal Airway: ETTCuffed: Yes Technique Used: Video laryngoscopyDevices/Methods Used in Placement: Intubating styletInsertion Site: OralLaryngoscope Blade/Videolaryngoscope Blade Size: 3ETT Size (mm): 8.0Cuff at minimum occlusion pressure: Yes Measured from: GumsETT to Gums (cm): 22Placement Lg ified by: CO2 detection, direct visualization and equal breath sounds Laryngoscopic view: Grade I - full view of glottisRapid Sequence Induction (RSI): No Modified RSI: No Number of Attempts at Approach: 3 or more First attempt using Sheikh 2 blade by OBSTETRICIAN AND GYNAECOLOGIST. Second attempt with MD with MAC 3. Grade 3b view, secondary to neck stiffness.Grade 1 view with glidescope. ETT passed atraumatically.[facility]aTransthoracic Echocardiogram Complete, (w Contrast, Strain and 3D if needed)2020-03-19 20:20:00 Echocardiography Report [address]Name: DARIEN HUYNH Pat.ID: [id number] .Date: 03/19/2020 Refer.MD: CLINT KING DO Exam Time: 11:43:00 AM Study Type:Routine Echo Height: 68in Weight: 185.61lb BSA: 1.98 m2 Age: [birth year]74Y Sex: MALE BP: 110/57 HR: 70 bpm Sonogrphr: NILSON Conde Pat. Stat.:Inpatient Room: [facility] Study Status:Final Echo Event ID:[id number] Order ID: [id number] Reason for Study:Perioperative function eval without cardiac evidenceHistory / Clinical:Hypertension, Heart DiseaseProcedures: 2D Echo, Colorflow Doppler, 3D Echo, Strain, Portable,Intravenous Optison ContrastRace: C SUMMARY: There is mild concentric LV hypertrophy. LV EF is normal. Overallwall motion is normal.Diastolic dysfunction Grade I (Mild): Impaired relaxation with normalLV filling pressures. FINDINGS: LV: LV size is normal. There is mild concentric LV hypertrophy. LV EF is normal. Overall wall motion is normal. Estimated EF is 65-69%RV: RV size is normal. RV systolic function is normal.LA: LA volume is mildly enlarged.RA: RA volume is mildly enlarged.AO: Aortic root diameter is normal.JUNE: No pericardial effusion.AV: Mild thickening and calcification of AV leaflets.MV: Mild mitral annular calcification.PV: No structural PV abnormalities noted.TV: No structural TV abnormalities noted.Bustamante: Diastolic dysfunction Grade I (Mild): Impaired relaxation with normal LV filling pressures.Other: Insufficient TR jet to estimate PA systolic pressure. MEASUREMENTS:------- 2DParasternal Long [place] Ao An 2.2 cm LVPWd 1.3 cm Ao Rtd 3.4 cm Index 1.7 cm/m2 LA Ds 4.1 cm IVSd 1.3 cm RWT 0.5 LVIDd 5.1 cm Index 2.6 cm/m2 LV Mass 270.1 g (122- 174) LVIDs 2.9 cm LVM Index 136.4 g/m2 LV%fs 43.1 % LVOT 2.2 cm LA Sng Plane LA Area 27.1 cm2 (8.8- 23.4) LA Vol 79.4 ml Index 40.1 ml/m2 LA LngAx 7.6 cm RA Sng Plane RA Vol 77.8 ml Index 39.3 ml/m2 RA LngAx 7.1 cm RA Area 25 cm2 (8.3-19.5)LVOT LVOT Area 3.9 cm2 DOPPLERLVOT Stroke Vol & Cardiac Out LVOT TVI 26.6 cm HR 71 bpm LVOT LVOT SV 103.8 ml LVOT CO 7.4 l/min SVi 52.4 ml/m2 LVOT CI 3.7 l/m/m2 Signed 03/19/2020 02:20 PMSrajan Sarabia M.D.Interface, Radiology Results In - 03/19/2020 2:20 PM CST Echocardiography Report [address] [place] [address] Pat.Name: DAREIN HUYNHNess Pat.ID: [id number] .Date: 03/19/2020 Refer.MD: CLINT KING DO Exam Time: 11:43:00 AM Study Type:Routine Echo Height: 68in Weight:185.61lb BSA: 1.98 m2 Age: 9 1945,74Y Sex: MALE BP: 110/57 HR: 70 bpm Sonogrphr: NILSON Conde Pat. Stat.:Inpatient Room: [facility] Study Status:Final Echo Event ID:[id number] Order ID: [id number] Reason for Study:Perioperative function eval without cardiac evidenceHistory / Clinical:Hypertension, Heart DiseaseProcedures: 2D Echo, Colorflow Doppler, 3D Echo, Strain, Portable,Intravenous Optison ContrastRace: C SUMMARY: There is mild concentric LV hypertrophy. LV EF is normal. Overallwall motion is normal.Diastolic dysfunction Grade I (Mild): Impaired relaxation with normalLV filling pressur es. FINDINGS: ----LV: LV size is normal. There is mild concentric LV hypertrophy. LV EF is normal. Overall wall motion is normal. Estimated EF is 65- 69%RV: RV size is normal. RV systolic function is normal.LA: LA volume is mildly enlarged.RA: RA volume is mildly enlarged.AO: Aortic root diameter is normal.JUNE: No pericardial effusion.AV: Mild thickening and calcification of AVleaflets.MV: Mild mitral annular calcification.PV: No structural PV abnormalities noted.TV: No structural TV abnormalities noted.Bustamante: Diastolic dysfunction Grade I (Mild): Impaired relaxation with normal LV filling pressures.Other: Insufficient TR jet to estimate PA systolic pressure. MEASUREMENTS: 2DParasternal Long [place] Ao An 2.2 cm LVPWd 1.3 cm Ao Rtd 3.4 cm Index 1.7 cm/m2 LA Ds 4.1 cm IVSd 1.3 cm RWT 0.5 LVIDd 5.1 cm Index 2.6 cm/m2 LV Mass 270.1 g (122-174) LVIDs 2.9cm LVM Index 136.4 g/m2 LV%fs 43.1 % LVOT 2.2 cm LA Sng Plane LA Area 27.1 cm2 (8.8-23.4) LA Vol 79.4 ml Index 40.1 ml/m2 LA LngAx 7.6 cm RA Sng Plane RA Vol 77.8 ml Index 39.3 ml/m2 RA LngAx 7.1 cm RA Area 25 cm2 (8.3-19.5)LVOT LVOT Area 3.9 cm2 DOPPLERLVOT Stroke Vol & Cardiac Out LVOT TVI 26.6 cm HR 71 bpm LVOT LVOT SV 103.8 ml LVOT CO 7.4 l/min SVi 52.4 ml/m2 LVOT CI 3.7 l/m/m2 Signed 03/19/2020 02:20 Dodie Sarabia M.D.[facility] Lower Extrem[facility] Wo Contrast [id number] 13:07:30EXAMINATION: MRI LOWER EXTREMITY WO CONTRAST RIGHT CLINICAL HISTORY: chronic infection possible osteo tib-fib TECHNIQUE: Multiplanar multisequence MR imaging of the right lower extremity was performed without contrast. COMPARISON: None. IMPRESSION: Evaluation limited due to lack of intravenous c ontrast. Patient is status post right knee arthroplasty. Migration of the tibial component laterally, beyond the cortex of the tibia is seen, compatible with loosening. In addition, there is a loculated complex fluid collection in the subcutaneous tissues of the anterior lower extremity measuring approximately 3.2 x 1.3 x 3.6 cm. This collection tracks along the tibia, and communicates with the tibial component (series 12, image 17). Small fluid is seen around the tibial component, and there is concern for hardware infection. Lucency is seen around the hardware, and there is erosion of the medial tibial cortex, consistent with cellulitis involving the tibia surrounding the prosthesis and at the distal tip of the prosthesis. Moderate subcutaneous edema is seen of the lower extremity below the knee, compatible with cellulitis. Summary: Findings are compatible with cellulitis, with a fluid collection in the soft tissues anteriorly that extends along the cortex of the tibia and communicates with the tibial component. 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 Migration of the tibial component is seen medially, beyond the cortex of the tibia. [id number] Interface, Radiology Results Incoming - 03/19/2020 7:14 AM CST EXAMINATION: MRI LOWER EXTREMITY WO CONTRAST RIGHTCLINICAL HISTORY: chronic infection possible osteo tib- fibTECHNIQUE: Multiplanar multisequence MR imaging of the right lower extremity was performed without contrast.COMPARISON: None.IMPRESS ION:Evaluation limited due to lack of intravenous contrast.Patient is status post right knee arthroplasty. Migration of the tibial component laterally, beyond the cortex of the tibia is seen, compatible with loosening. In addition, there is a loculated complex fluid collection in the subcutaneous tissues of the anterior lower extremity measuring approximately 3.2 x 1.3 x 3.6 cm. This collection tracks along the tibia, and communicates with the tibial component (series 12, image 17). Small fluid is seen around the tibial component, and there is concern for hardware infection. Lucency is seen around the hardware, and there is erosion of the medial tibial cortex, consistent with cellulitis involving the tibia surrounding the prosthesis and at the distal tip of the prosthesis.Moderate subcutaneous edema is seen of the lower extremity below the knee, compatible with cellulitis.Summary:Findings are compatible with cellulitis, with a fluid collection in the soft tissues anteriorly that extends along the cortex of the tibia and communicates with the tibial component. 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 Migration of the tibial component is seen medially, beyond the cortex of the tibia.[id number] THIGH WO CONTRAST [id number] 12:29:55EXAMINATION: MRI KNEE WO CONTRAST RIGHT, MRI THIGH WO CONTRAST RIGHT CLINICAL HISTORY: Infection TECHNIQUE: Multiplanar multisequence MR imaging of the right knee and thigh was performed without cont rast. COMPARISON: Radiographs performed on 03/18/2020. 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 Susceptibility artifact from the hardwarelimits evaluation. There is fluid and osteolysis surrounding the stems of both the femoral and tibial components. There is a defect in the cortex of the posterolateral aspect of the proximal tibial shaft adjacent to the tibial stem. Additionally, there is a 3.2 x 1.3 x 2.6 cm soft tissue fluid collection located anterior to the proximal tibial shaft, this collection tracks along the tibia and communicates with this cortical defect. No other soft tissue fluid collection is identified. There is no soft tissue mass. There is no knee joint effusion. There are enlarged right inguinal lymph nodes, which are reactive in nature. 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 Additionally, there is a 3.2 x 1.3 x 2.6 cm soft tissue abscess located anterior to the proximal tibial shaft that appears to communicate with the fluid surrounding the tibial stem. 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 Susceptibility artifact from the hardware limits evaluation.There is fluid and osteolysis surrounding the stems of both the femoral and tibial components. There is a defect in the cortex of the posterolateral aspect of the proximal tibial shaft adjacent to the tibial stem. Additionally, there is a 3.2 x 1.3 x 2.6 cm soft tissue fluid collection located anterior to the proximal tibial shaft, this collection tracks along the tibia and communicates with this cortical defect.No other soft tissue fluid collection is identified. There is no soft tissue mass. There is no knee joint effusion. 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 Additionally, there is a 3.2 x 1.3 x 2.6 cm soft tissue abscess located anterior to the proximal tibial shaft that appears to communicate with the fluid surrounding the tibial stem.RM-CUJDOL0EkuzpnoyzWilson N. [facility] Knee Right Wo [id number] 12:29:55EXAMINATION: MRI KNEE WO CONTRAST RIGHT, MRI THIGH WO CONTRAST RIGHT CLINICAL HISTORY: Infection TECHNIQUE: Multiplanar multisequence MR imaging of the right knee and thigh was performed without contrast. COMPARISON: Radiographs performed on 03/18/2020. 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 Susceptibility artifact from the hardwarelimits evaluation. There is fluid and osteolysis surrounding the stems of both the femoral and tibial components. There is a defect in the cortex of the posterolateral aspect of the proximal tibial shaft adjacent to the tibial stem. Additionally, there is a 3.2 x 1.3 x 2.6 cm soft tissue fluid collection located anterior to the proximal tibial shaft, this collection tracks along the tibia and communicates with this cortical defect. No other soft tissue fluid collection is identified. There is no soft tissue mass. There is no knee joint effusion. There are enlarged right inguinal lymph nodes, which are reactive in nature. 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 Additionally, there is a 3.2 x 1.3 x 2.6 cm soft tissue abscess located anterior to the proximal tibial shaft that appears to communicate with the fluid surrounding the tibial stem. 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 Susceptibility artifact from the hardware limits evaluation.There is fluid and osteolysis surrounding the stems of both the femoral and tibial components. There is a defect in the cortex of the posterolateral aspect of the proximal tibial shaft adjacent to the tibial stem. Additionally, there is a 3.2 x 1.3 x 2.6 cm soft tissue fluid collection located anterior to the proximal tibial shaft, this collection tracks along the tibia and communicates with this cortical defect.No other soft tissue fluid collection is identified. There is no soft tissue mass. There is no knee joint effusion. 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 Additionally, there is a 3.2 x 1.3 x 2.6 cm soft tissue abscess located anterior to the proximal tibial shaft that appears to communicate with the fluid surrounding the tibial stem.[facility]-[id number] [facility] [id number] 23:38:48 Test Item Value Reference Range Interpretation Comments Urine culture (test code = SEE COMMENT [id number]) [facility] Or 2 Vw [id number] 23:14:12EXAMINATION: XR KNEE 1 OR 2 VW RIGHT CLINICAL HISTORY: PAin and swelling COMPARISON: None IMPRESSION: There is a large zone of lucency 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 Infection cannot be excluded. There is a joint effusion present. There is no acute fracture or dislocation. There are vascular calcifications. [id number] Interface, Radiology Results 03/18/2020 5:17 PM CST EXAMINATION: XR KNEE 1 OR 2 VW RIGHTCLINICAL HISTORY: PAin and swellingCOMPARISON: NoneIMPRESSION:There is a large zone of lucency 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 Infection cannot be excluded. There is a joint effusion present. There is no acute fracture or dislocation. There are vascular calcifications.[id number] Hospital SARS-CoV-2 (COVID-19) RNA [Presence] in Respiratory specimen by GREGORIO with probe [id number] 23:10:59 Test Item Value Reference Range Interpretation Comments SARS-CoV-2 (COVID-19) RNA Not detected Not-Detected [Presence] in Respiratory specimen by GREGORIO with probe detection (test code = 76087-3) XR Tibia Fibula 2 [id number] 23:06:16EXAMINATION: XR TIBIA FIBULA 2 VW RIGHT CLINICAL HISTORY: L leg cellulitis COMPARISON: None IMPRESSION: There is evidence of loosening of tibial component of knee prosthesis, with large zone of lucency around the stem. Infection cannot be excluded. Bones are osteopenic. No definite acute fracture is seen. [id number] Interface, Radiology Results 03/18/2020 5:09 PM CSTFormatting ofthis note might be different from the original.EXAMINATION: XR TIBIA FIBULA 2 VW RIGHTCLINICAL HISTORY: L leg cellulitisCOMPARISON: NoneIMPRESSION:There is evidence of loosening of tibial component of knee prosthesis, with large zone of lucency around the stem. Infection cannot be excluded. Bones are osteopenic. No definite acute fracture is seen.[facility]-[id number] HospitalCT, EXTREMITY, LOWER WITHOUT CONTRAST, [id number] 19:47:00FINAL REPORT CLINICAL HISTORY: Trauma and pain COMPARISON: None. Correlationis made with a right hip series performed on the same date. FINDINGS: Multiple axial images of the right hip are submitted without IV contrast. Coronal and sagittal reformats were created. This exam was performed according to our departmental dose- optimization program, which includes automated exposure control, adjustment of the mA and/or kV according to patient size and/or use of the iterative recons truction technique. There is a minimally displaced fracture of the superior margin of the greater trochanter of the right femur. There is overlying soft tissue contusion. Otherwise no acute fracture ispresent. The hip joint is aligned. No significant [...] may be reactive or reflect primary lymphoproliferative ormetastatic neoplasm. Correlation is recommended. Signed: Jorge Kumar Verified Date/Time:01/25/2017 19:47:23 Reading Location: [address] Reading Room RAD, HIP, 2 VIEWS, [id number] 19:11:00 Reason for exam:->FALLReason for exam:->HIP PAINShould this be performed at the bedside?->NoFINAL REPORT CLINICAL HISTORY: Trauma and pain COMPARISON: None. FINDINGS: Frontal view of the pelvis and a lateral view of the right hip are submitted. There is no acute fracture, malalignment or destructive bony lesion. Surgical clips overlie the right lower abdomen. Signed: Jorge Kumar Verified Date/Time: 01/25/2017 19:11:49 Reading Location: [address] Reading Room nskyaguj8345-87-02 16:35:61088Ivvldtvo UfbenjgVxptbuioz2871-76-90 16:35:17303Tscewiga Jimmy Twfulpzlw9459-21-73 16:35:0032[facility] WoeiiljGnnugpjxx5169-20-41 16:35:33989 [facility] ZpmcodkMtzheobgl9479-50-88 16:35:49668 MEQ/LMemorial HermannChemistry 2014-02-18 16:35:004.3 MEQ/LMemorial HgwkzgvSqfczpvfv2881-77-69 16:35:002.5 [facility] ZwcfobuUmheowoyf3365-59-83 16:35:0029[facility]Chem[facility] 2014-02-18 16:35:00 Test Item Value Reference Range Interpretation Comments BUN/CREAT (test code = BUN/CREAT) 12 08-05 [facility] QykjalwHijljwkej9732-44-59 16:35:004.2[facility]annChem[facility] 2014-02-18 16:35:008.9[facility] FqgbtkmPlhxuvvof1792-70-42 16:35:0036[facility] JiqddqdMhpopexqx1536-21-24 16:35:0025[facility] SzywypuJrwmsmjop8030-97-63 16:35:03653Cdronhkf ZxzcgogUwepypwgz2452-15-47 16:35:001.380[facility] [place] Etpsqcjia3284-38-10 16:35:002.00[facility] UbqhrlnZfjqjshsrz8119-18-61 16:35:00 13.9[facility] GrnxqarZificckadc4949-73-18 16:35:0041.4[facility] HermannHematology 2014-02-18 16:35:74882 K/CMMMemorial QmotyodIkqlrucl3327-36-90 16:35:00Non ReactiveMemorial ToevnixEnwvzofcz1695-26-53 20:45:50731Ocbziuxa HermannChemistry 2013-01-23 20:45:83031Hqrwbchp WyfjdzyRluvbcmvx0910-82-08 20:45:0023[facility] UhzgzyhPwuufvrnq4356-76-38 20:45:22383Ymhpdtry DlzpkmuCohqbmgni4200-69-37 20:45:55769Hduettfx QvurvfhHhnsqzpul2720-82-48 20:45:0023[facility] [place] Bdipktujr6479-07-04 20:45:00See Note mg/dLMemorial WwbzcqtBwiejrebx1175-09-29 20:45:33268 MEQ/LMemorial QckipjiXsgbpcpxi4525-14-49 20:45:004.5 MEQ/LMemorial MomtrqvSmpkwahpd7829-61-35 20:45:001.8[facility] JydjoszFbkupjthc6255-55-80 20:45:0030[facility] LlxceomWcoiinvfv0726-95-22 20:45:00 Test Item Value Reference Range Interpretation Comments BUN/CREAT (test code = BUN/CREAT) 17 1 6-25 [facility] BsubslpJweymfotk4062-13-35 20:45:004.2[facility]annChem[facility] 2013-01-23 20:45:009.3[facility] ElydgdxPbsxdfobf9415-82-07 20:45:0031[facility] PnhefhgNidbgncap7865-35-61 20:45:0020[facility] LajkvxtRumktagow6459-89-53 20:45:18664Cchkcajs DznwsikPcpedlboc7195-09-36 20:45:001.390[facility] Jimmy Wapmoreoz6122-30-99 20:45:001.33[facility] PhbyfqfGdoqjqfls8878-77-53 15:12:571.57 [facility] KxaitpjRsqghxghs9294-15-21 15:12:571.57[facility] [place]
[2020-10-01 14:48] LABS: Absolute Lymphocytes (CBC) 1.2 K/uL (0.7-4.9); Basophils % 0.3 % (0-1.3); Hematocrit 33.8 % (39.6-49.0); MPV 6.8 fL (7.6-11.3); RBC Red Blood Cell Count 3.92 M/uL (4.33-5.43)
[2020-10-01] MEDS ORDERED: NA CHLORIDE 0.9% 1,000 ML ONE ×2 (14:55→15:24)
[2020-10-01 15:13] LABS: ALT/SGPT 31 U/L (12-78); AST/SGOT 27 U/L (15-37); Albumin 3.6 g/dL (3.4-5.0); Alkaline Phosphatase 89 U/L (45-117); BUN Blood Urea Nitrogen 40 mg/dL (7-18); Bicarbonate 25 mmol/L (21-32); Bilirubin Direct 0.1 mg/dL (0-0.2); Bilirubin Total 0.5 mg/dL (0.2-1.0); Glucose Level 211 mg/dL (74-106); NT PRO-BNP 2091 pg/mL (<125); Potassium 3.1 mmol/L (3.5-5.1); Protein, Total 7.6 g/dL (6.4-8.2); Sodium Level 135 mmol/L (136-145); Troponin (Emerg Dept Use Only) < 0.02 ng/mL (0.0-0.045)
[2020-10-01 15:32] LABS: Protime INR 1.09
--- NOTE | 2020-10-01 15:36 | RAD REPORT ---
EXAM DESCRIPTION: Luan Single View10/01/2020 2:36 pm CLINICAL HISTORY: Dizziness, GI bleed, abdominal pain COMPARISON: 2019 FINDINGS: The lungs appear clear of acute infiltrate. The heart is normal size IMPRESSION: No acute abnormalities displayed
--- NOTE | 2020-10-01 15:46 | RAD REPORT ---
EXAM DESCRIPTION: CT - Abdomen Pelvis Wo Contrast - 10/01/2020 3:16 pm CLINICAL HISTORY: Abdominal pain COMPARISON: None TECHNIQUE: Computed axial tomography of the abdomen and pelvis was obtained. IV and oral contrast we re not requested. All CT scans are performed using dose optimization technique as appropriate and may include automated exposure control or mA/KV adjustment according to patient size. FINDINGS: The evaluation of solid organs, vessels and bowel is limited secondary to the lack of con trast administration. A right posterolateral hernia contains a portion of liver. The spleen, pancreas, adrenals and left kidney grossly normal. Right nephrectomy. Diverticula stem from the colon without evidence of diverticulitis. Fluid is present within colon. Si gmoidectomy. Colon is upper limits normal caliber. IMPRESSION: A right posterolateral hernia contains a portion of liver. Fluid-filled colon
[2020-10-01] MEDS ORDERED: NA CHLORIDE 0.9% 250 ML ONE ×2 (16:12→17:59)
[2020-10-01 16:19] LABS: Hematocrit 13.8 % (39.6-49.0)
[2020-10-01] MEDS ORDERED: PIPERACIL/TAZO 3.375 GM VIAL IV ONE (16:39)
[2020-10-01] MEDS ORDERED: NA CHLORIDE 0.9% 100 ML ONE ×2 (16:39→18:05)
[2020-10-01] MEDS ORDERED: ACETAMINOPHEN 325 MG TABLET ONE ×2 (16:43→16:52)
[2020-10-01] MEDS ORDERED: DIPHENHYDRAMINE 50 MG/ML VIAL ONE (16:52)
[2020-10-01] MEDS ORDERED: PANTOPRAZOLE 40 MG INJ ONE (16:52)
[2020-10-01] MEDS ORDERED: HYDROCORTISONE SUC 100 MG INJ ONE (16:52)
[2020-10-01] MEDS ORDERED: NA CHLORIDE 0.9% 500 ML ONE (17:05)
[2020-10-01] MEDS ORDERED: LORazepam 2 MG/ML VIAL ONE (17:26)
[2020-10-01] MEDS ORDERED: LIDOCAINE VISCOUS 2% SOLN 15 ML UDC ONE (17:26)
[2020-10-01] MEDS ORDERED: DOPAMINE/D5W 400 MG/250 ML BAG IV ONE (17:59)
[2020-10-01] MEDS ORDERED: VITAMIN K (ADULT) 10 MG/ML ONE (18:00)
[2020-10-01] MEDS ORDERED: Meropenem 1000 MG/VIAL IV ONE (18:05)
--- NOTE | 2020-10-01 18:13 | EDPHYS ---
Physician Documentation [facility] Name: Amando Grossman Age: 74 yrs Sex: Male : 1945 Arrival Date: 10/01/2020 Time: 13:57 Bed 26 Private MD: ED Physician Corbin Ernst HPI: 10/01 14:39 This 74 yrs old Male presents to ER via EMS with complaints of GI Bleeding. pm1 14:39 The patient presents to the emergency department with rectal bleeding, Bright red pm1 blood. Onset: The symptoms/episode began/occurred this morning. Abdominal pain: none is appreciated. Modifying factors: The symptoms are alleviated by nothing, the symptoms are aggravated by nothing. Associated signs and symptoms: Pertinent positives: dizziness at rest, Nausea for 1 week, Pertinent negatives: chest pain, shortness of breath, Abdominal pain. Severity of symptoms: in the emergency department the symptoms are unchanged. The patient has experienced a previous episode, 20 years ago patient with similar bleeding due to a bleeding diverticula. The patient has not recently seen a physician, Patient with dialysis yesterday. Historical: - Allergies: 14:21 Iodine; topical is ok; zb 14:21 PENICILLINS; zb - Home Meds: 14:21 aspirin 81 mg Oral chew 1 tab once daily [Active]; clopidogrel 75 mg Oral tab 1 tab zb once daily [Active]; fluticasone inhalation [Active]; metoprolol tartrate 50 mg Oral tab 1 tab 2 times per day [Active]; tamsulosin 0.4 mg Oral cp24 1 cap once daily [Active]; WelChol 3.75 gram Oral pwpk 1 packet twice a day [Active]; pantoprazole 40 mg Oral TbEC 1 tab once daily [Active]; zolpidem 10 mg Oral tab 1 tab nightly [Active]; Celebrex 100 mg Oral cap 1 cap once daily [Active]; Sular 34 mg Oral Tb24 1 tab once daily [Active]; - PMHx: 14:21 Anxiety; Depression; GERD; High Cholesterol; Hypertension; zb 14:27 hypertension; cholesterol; urinary urgency; mascular degeneration; zb - PSHx: 15:16 Right Nephrectomy; Colon resection; Replacement of total knee joint; Bilateral; Carpal jl7 tunnel surgery, bilateral; CABG; Cardaic stent; - Immunization history:: Adult Immunizations up to date, Client reports receiving the 2nd dose of the Covid vaccine, Date received: August 2020. - Social history:: Smoking status: unknown. ROS: 14:39 Constitutional: Negative for fever, chills, and weight loss. pm1 14:39 Back: Negative for injury and pain, MS/Extremity: Negative for injury and deformity, Skin: Negative for injury, rash, and discoloration. 14:39 Cardiovascular: Negative for chest pain, palpitations, and edema, Respiratory: Negative for shortness of breath, cough, wheezing, and pleuritic chest pain. 14:39 Abdomen/GI: Positive for nausea, rectal bleeding, Negative for abdominal pain, vomiting. 14:39 Neuro: Positive for dizziness, Negative for headache. 14:39 All other systems are negative. Exam: 14:39 Head/Face: Normocephalic, atraumatic. pm1 14:39 Skin: Warm, dry with normal turgor. Normal color with no rashes, no lesions, and no evidence of cellulitis. 14:39 Constitutional: The patient appears in no acute distress, alert, awake, comfortable, well nourished. 14:39 Eyes: Exam is negative for acute changes, Periorbital structures: appear normal, Extraocular movements: no acute changes, Conjunctiva: no acute changes, no injection, Sclera: no acute changes. 14:39 Cardiovascular: Rate: normal, Rhythm: regular, Pulses: no pulse deficits are appreciated, Heart sounds: normal, normal S1and S2, Edema: is not appreciated. 14:39 Respiratory: Exam negative for acute changes, respiratory distress, shortness of breath, Breath sounds: are clear throughout. 14:39 Abdomen/GI: Inspection: obese Palpation: abdomen is soft and non-tender, in all quadrants, Rectal exam: rectal tone normal, Stool: Specks of bright red blood present on LOUANN, hemorrhoid(s), are not appreciated. 14:39 Musculoskeletal/extremity: Extremities: grossly normal except: noted in the Right AKA: 14:39 Neuro: Exam negative for acute changes, Orientation: is normal, Mentation: is normal, Motor: moves all fours. Vital Signs: 14:16 BP 103 / 53; Pulse 72; Resp 20; Pulse Ox 100% on R/A; Weight 83.91 kg; Height 5 ft. 8 zb in. (172.72 cm); Pain 0/10; 14:30 Temp 97; jl7 14:36 BP 86 / 49; Pulse 73; Resp 15; Pulse Ox 98% ; jl7 15:38 BP 76 / 46; Pulse 67; Resp 20; Pulse Ox 100% on R/A; zb 16:37 BP 93 / 43; Pulse 69; Resp 16; Pulse Ox 100% on R/A; zb 17:30 BP 56 / 34; iw 17:30 BP 56 / 34; Pulse 65; Resp 16; Pulse Ox 100% on R/A; zb 17:45 BP 84 / 56; Pulse 77; Resp 16; Pulse Ox 100% ; zb 17:50 BP 122 / 55; Pulse 82; Resp 17; Pulse Ox 100% on R/A; zb 18:06 BP 109 / 44; Pulse 74; Resp 18; Pulse Ox 98% on R/A; zb 19:07 BP 112 / 64; Pulse 99; Resp 20; Pulse Ox 97% on R/A; zb 14:16 Body Mass Index 28.13 (83.91 kg, 172.72 cm) zb Procedures: 17:21 Central Line: the site was prepped with Betadine, in sterile fashion, a triple lumen oneil catheter was inserted, in the right femoral vein, in 3 attempts. placement was verified, by blood return, the site was dressed with 4X4s, using sterile technique, the patient tolerated the procedure, well. MDM: 14:11 Patient medically screened. pm1 14:50 Data reviewed: vital signs. pm1 15:54 ED course: Patient with grossly bloody bowel movement with continued hypotension. pm1 Central line placement required. Patient will be administered 2 units blood, 1 jumbo platelets, and 2 units FFP. 16:32 Counseling: I had a detailed discussion with the patient and/or guardian regarding: the pm1 historical points, exam findings, and any diagnostic results supporting the discharge/admit diagnosis, lab results, radiology results, the need to transfer to another facility, for higher level of care. 16:37 Physician consultation: Moose Talamantes MD after a discussion of the case, a recommendation pm1 for transfer for higher level of care is made, in the emergency department to see patient at 16:37. 16:38 Data interpreted: Pulse oximetry: on room air is 100 %. Interpretation: normal. pm1 17:49 Physician consultation: Beto Kaba MD was called at 16:50, regarding patient's pm1 condition, Recommends that the best option for the patient would be transfer for interventional radiology. If the patient is unable to be transferred then he recommends surgical intervention, hemicolectomy. If that is not an option he would be available to perform a colonoscopy . 10/01 14:19 Order name: Basic Metabolic Panel pm1 10/01 14:19 Order name: CBC with Diff pm1 10/01 14:19 Order name: LFT's pm1 10/01 14:19 Order name: Magnesium; Complete Time: 15:18 pm1 10/01 14:19 Order name: NT PRO-BNP; Complete Time: 15:18 pm1 10/01 14:19 Order name: PT-INR; Complete Time: 15:37 pm1 10/01 14:19 Order name: Troponin (emerg Dept Use Only); Complete Time: 15:18 pm1 10/01 14:19 Order name: Type And Screen pm1 10/01 14:20 Order name: Basic Metabolic Panel; Complete Time: 15:18 EDMS 10/01 14:20 Order name: CBC with Automated Diff; Complete Time: 14:58 EDMS 10/01 14:20 Order name: Liver (Hepatic) Function; Complete Time: 15:18 EDMS 10/01 15:05 Order name: Hemoglobin [facility] 10/01 15:05 Order name: Hematocrit [facility] 10/01 14:19 Order name: XRAY Chest (1 view); Complete Time: 15:37 pm1 10/01 14:49 Order name: Abdomen ; Complete Time: 15:52 EDMS 10/01 15:06 Order name: Hemoglobin; Complete Time: 16:25 EDMS 10/01 15:06 Order name: Hematocrit; Complete Time: 16:25 EDMS 10/01 15:31 Order name: SARS-COV-2 RT PCR; Complete Time: 15:37 EDMS 10/01 15:49 Order name: Fresh Frozen Plasma EDKS 10/01 15:49 Order name: Packed RBC Leukored EDKS 10/01 15:49 Order name: Platelets, Leukored Pheresis EDKS 10/01 14:19 Order name: EKG; Complete Time: 14:20 pm1 10/01 14:19 Order name: Cardiac monitoring; Complete Time: 14:30 pm1 10/01 14:19 Order name: EKG - Nurse/Tech; Complete Time: 14:30 pm1 10/01 14:19 Order name: IV Saline Lock; Complete Time: 14:30 pm1 10/01 14:19 Order name: Labs collected and sent; Complete Time: 14:30 pm1 10/01 14:19 Order name: O2 Per Protocol; Complete Time: 14:30 pm1 10/01 14:19 Order name: O2 Sat Monitoring; Complete Time: 14:30 pm1 10/01 15:36 Order name: Central Line Kit; Complete Time: 16:01 [facility] 10/01 15:53 Order name: Transfuse; Complete Time: 18:22 pm1 10/01 16:32 Order name: Be; Complete Time: 18:15 pm1 Administered Medications: 14:36 Drug: NS 0.9% 1000 ml Route: IV; Rate: 1000 ml; Site: right wrist; jl7 15:30 Follow up: IV Status: Completed infusion; IV Intake: 1000ml jl7 15:00 Drug: NS 0.9% 1000 ml Route: IV; Rate: 1 bolus; Site: right antecubital; zb 16:00 Follow up: Response: No adverse reaction; IV Intake: 1000ml jl7 19:44 Follow up: Response: No adverse reaction; IV Status: Completed infusion; IV Intake: zb 1000ml 15:35 Drug: Tylenol 650 mg Route: PO; zb 19:00 Follow up: Response: No adverse reaction zb 16:25 Drug: Benadryl (diphenhydrAMINE) 12.5 mg Route: IVP; Site: right femoral; jl7 18:00 Follow up: Response: No adverse reaction zb 16:28 Drug: Solu-CORTEF (hyrdoCORTISONE) 50 mg Route: IVP; Site: right antecubital; jl7 18:00 Follow up: Response: No adverse reaction zb 16:30 Drug: ProTONIX (pantoprazole) 80 mg Route: IVP; Site: right wrist; jl7 17:00 Follow up: Response: No adverse reaction zb 17:00 Drug: Ativan (LORazepam) 0.5 mg Route: IVP; Site: right femoral; zb 19:00 Follow up: Response: No adverse reaction; Anxiety decreased zb 17:30 Drug: Vitamin K1 (phytonadione) 10 mg Route: Sub-Q; Site: left upper arm; zb 19:00 Follow up: Response: No adverse reaction zb 17:38 Drug: Dopamine drip 5 mcg/kg/min - (DOPamine 400 mg, D5W 250 ml) Route: IV; Rate: iw calculated rate; Site: right femoral; 17:52 Follow up: Rate change 15 mcg/kg/min iw 19:44 Follow up: IV Status: Infusion continued upon transfer; IV Intake: 10ml zb 18:21 Drug: Meropenem 1 grams Route: IV; Rate: calculated rate; Site: right femoral; jl7 19:00 Follow up: IV Status: Completed infusion; IV Intake: 100ml zb Disposition: 10/02 09:23 Co-signature as Attending Physician, Corbin Ernst MD I agree with the assessment and oneil plan of care. Disposition Summary: 10/01/20 18:12 Transfer Ordered Transfer Location: [facility] pm1 Reason: Higher level of care pm1 Condition: Critical pm1 Problem: new pm1 Symptoms: have improved pm1 Accepting Physician: Reena MOSQUERA(10/01/20 19:45) zb Diagnosis - GI Bleed/ Gastrointestinal hemorrhage, unspecified pm1 Forms: - Medication Reconciliation Form pm1 - SBAR form pm1 Signatures: Dispatcher [employer] Corbin Lacey MD MD cha Mickail, Joel, PA PA jmm Williams, Irene, Tremayne Herrera RN, CAGE SHIFT MANAGER-C CAGE SHIFT MANAGER-Cla1 Kian Abarca, CAGE SHIFT MANAGER CAGE SHIFT MANAGER pm1 Bao Dukes RN RN jl7 Brown, Zipporah RN RN zb Corrections: (The following items were deleted from the chart) 10/01 14:36 14:23 CORONAVIRUS+MR.LAB.BRZ ordered. EDMS EDMS 14:49 14:20 Abdomen Pelvis W Con+CT.RAD.BRZ ordered. EDMS EDMS 18:35 18:12 [facility] pm1 pm1 19:45 18:35 Reena MOSQUERA pm1 zb
--- NOTE | 2020-10-01 18:13 | ER ---
Nurse's Notes [facility] Name: Amando Grossman Age: 74 yrs Sex: Male : 1945 Arrival Date: 10/01/2020 Time: 13:57 Bed 26 Private MD: Diagnosis: GI Bleed/ Gastrointestinal hemorrhage, unspecified Presentation: 10/01 14:16 Chief complaint: EMS states: patient called this morning after noticing blood in his zb stool. patient states that he has 4 large bloody bowel movements. history on plavix and blood thinner. patient has had one episode similar to this in the past years ago. Coronavirus screen: At this time, the client does not indicate any symptoms associated with coronavirus-19. Ebola Screen: No symptoms or risks identified at this time. Initial Sepsis Screen: Does the patient meet any 2 criteria? No. Patient's initial sepsis screen is negative. Does the patient have a suspected source of infection? No. Patient's initial sepsis screen is negative. Risk Assessment: Do you want to hurt yourself or someone else? Patient reports no desire to harm self or others. Onset of symptoms was October 01, 2020. 14:16 Acuity: KELLY 2 zb 14:16 Method Of Arrival: EMS: [facility] zb 17:49 Acuity: KELLY 1 iw Triage Assessment: 14:31 General: Appears uncomfortable, Behavior is cooperative, agitated, Reports feeling ill zb for 0-12 hours. Pain: Denies pain. Neuro: Level of Consciousness is awake, alert, obeys commands, Oriented to person, place, time, Speech is normal. Cardiovascular: Heart tones S1 S2 Patient's skin is warm and dry. Respiratory: Airway is patent Respiratory effort is even, unlabored, Respiratory pattern is regular, symmetrical. GI: Abdomen is round Rectal exam: Bleeding noted, Bowel sounds hyperactive in right upper quadrant, left upper quadrant, right lower quadrant and left lower quadrant Reports rectal bleeding. Derm: Skin is clammy, diaphoretic, Skin is pale, Skin temperature is cool. Musculoskeletal: Amputation of right leg. Historical: - Allergies: 14:21 Iodine; topical is ok; zb 14:21 PENICILLINS; zb - Home Meds: 14:21 aspirin 81 mg Oral chew 1 tab once daily [Active]; clopidogrel 75 mg Oral tab 1 tab zb once daily [Active]; fluticasone inhalation [Active]; metoprolol tartrate 50 mg Oral tab 1 tab 2 times per day [Active]; tamsulosin 0.4 mg Oral cp24 1 cap once daily [Active]; WelChol 3.75 gram Oral pwpk 1 packet twice a day [Active]; pantoprazole 40 mg Oral TbEC 1 tab once daily [Active]; zolpidem 10 mg Oral tab 1 tab nightly [Active]; Celebrex 100 mg Oral cap 1 cap once daily [Active]; Sular 34 mg Oral Tb24 1 tab once daily [Active]; - PMHx: 14:21 Anxiety; Depression; GERD; High Cholesterol; Hypertension; zb 14:27 hypertension; cholesterol; urinary urgency; mascular degeneration; zb - PSHx: 15:16 Right Nephrectomy; Colon resection; Replacement of total knee joint; Bilateral; Carpal jl7 tunnel surgery, bilateral; CABG; Cardaic stent; - Immunization history:: Adult Immunizations up to date, Client reports receiving the 2nd dose of the Covid vaccine, Date received: August 2020. - Social history:: Smoking status: unknown. Screenin:39 Abuse screen: Denies threats or abuse. Denies injuries from another. Nutritional zb screening: No deficits noted. Tuberculosis screening: No symptoms or risk factors identified. Fall Risk No fall in past 12 months (0 pts). Secondary diagnosis (15 points) impaired mobility, IV access (20 points). Ambulatory Aid- None/Bed Rest/Nurse Assist (0 pts). Gait- Normal/Bed Rest/Wheelchair (0 pts) Mental Status- Oriented to own ability (0 pts). Total Kamara Fall Scale indicates High Risk Score (45 or more points). Fall prevention measures have been instituted. Side Rails Up X 2 Placed Close to Nursing Station Frequent Obs/Assessments Occuring As available patient and family educated on Fall Prevention Program and Strategies. Assessment: 14:30 Reassessment: patient had large bloody BM notified ECP patient cleaned up. placed in zb diaper. 14:40 Reassessment: patient stable enough for CT. IV fluid infusing at this time. zb 15:30 Reassessment: patient signed consent forms for blood products. zb 15:38 Reassessment: notified ECP of Large blood BM. zb 15:39 Reassessment: ECP notified of blood pressure. Central Line kit ordered and placed at bedside. 15:40 Reassessment: patient became unresponsive no reaction to pain. initiated code blue. zb after 3 compression patient became alert and started talking again. 15:45 Reassessment: ECP at bedside. Central line being placed at this time. received orders zb for transfusion. 16:30 Reassessment: started first transfusion of blood. no adverse reaction. zb 16:45 Reassessment: Dr. Brooks at bedside discussing care with patient. zb 17:00 Reassessment: patient remains alert and able to answer questions. remains on room air. zb 17:15 Reassessment: 1 unit of plasma administered. no adverse reaction. zb 17:17 Reassessment: patient blood pressure increasing. remains at bedside monitoring patient. 17:30 Reassessment: patient remain alert. Additional blood productions administered no acute zb reaction. 17:35 Reassessment: medication started for patient blood pressure. zb 18:00 Reassessment: 1 unit of platelets administered. no adverse reaction. zb 18:10 Reassessment: 1 unit of plasma administered. no adverse reaction. zb Vital Signs: 14:16 BP 103 / 53; Pulse 72; Resp 20; Pulse Ox 100% on R/A; Weight 83.91 kg; Height 5 ft. 8 zb in. (172.72 cm); Pain 0/10; 14:30 Temp 97; jl7 14:36 BP 86 / 49; Pulse 73; Resp 15; Pulse Ox 98% ; jl7 15:38 BP 76 / 46; Pulse 67; Resp 20; Pulse Ox 100% on R/A; zb 16:37 BP 93 / 43; Pulse 69; Resp 16; Pulse Ox 100% on R/A; zb 17:30 BP 56 / 34; iw 17:30 BP 56 / 34; Pulse 65; Resp 16; Pulse Ox 100% on R/A; zb 17:45 BP 84 / 56; Pulse 77; Resp 16; Pulse Ox 100% ; zb 17:50 BP 122 / 55; Pulse 82; Resp 17; Pulse Ox 100% on R/A; zb 18:06 BP 109 / 44; Pulse 74; Resp 18; Pulse Ox 98% on R/A; zb 19:07 BP 112 / 64; Pulse 99; Resp 20; Pulse Ox 97% on R/A; zb 14:16 Body Mass Index 28.13 (83.91 kg, 172.72 cm) zb ED Course: 13:00 Inserted saline lock: 20 gauge in right antecubital area, using aseptic technique. zb Blood collected. 13:57 Patient arrived in ED. 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 jl7 14:11 Kian Abarca, JOSE is PHCP. pm1 14:11 Corbin Ernst MD is Attending Physician. pm1 14:21 Triage completed. zb 14:29 Bao Dukes, ADRIEN is Primary Nurse. jl7 14:30 Inserted saline lock: 20 gauge in right wrist, using aseptic technique. jl7 14:36 XRAY Chest (1 view) In Process Unspecified. EDMS 15:16 Abdomen In Process Unspecified. EDMS 15:30 Arm band placed on. zb 15:40 Patient has correct armband on for positive identification. pvc monitor on. Pulse zb ox on. NIBP on. Door closed. Noise minimized. 16:40 initiated a transfer with Stephany Astudillo Rn from the [facility]/ They eb will have to decline the patient in transfer due to be at capacity at [facility], and [facility]. 16:43 initiated a transfer with Christiana from the [facility] [place]. eb 17:01 per Christiana from the [facility] they will have to decline the eb patient in transfer due to all facilities being at capacity. 17:05 initiated a transfer with Martin from the [facility] Transfer [facility]. eb 17:11 Per Martin from the [facility] Transfer Center they will have to decline the transfer due to eb being at capacity at all their facilities. 17:14 initiated a transfer with Ivanna Harris from the [facility]. eb 18:24 Ivanna Harris with [facility] called back with Dr. Solorio to speak with Dr. Ernst tt3 regarding the transfer request. 18:31 Ivanna Harris gave admin approval. The pt is going to [facility] Surgical ICU tt3 3rd Floor Room #[address]. Dr. Valles is the accepting physician. Nurse to call report to . Face sheet and covid results to be faxed to [phone]. 19:00 Patient transferred, IV remains in place. zb 19:00 Patient tolerated well. Be cath removed intact, balloon deflated. zb Administered Medications: 14:36 Drug: NS 0.9% 1000 ml Route: IV; Rate: 1000 ml; Site: right wrist; jl7 15:30 Follow up: IV Status: Completed infusion; IV Intake: 1000ml jl7 15:00 Drug: NS 0.9% 1000 ml Route: IV; Rate: 1 bolus; Site: right antecubital; zb 16:00 Follow up: Response: No adverse reaction; IV Intake: 1000ml jl7 19:44 Follow up: Response: No adverse reaction; IV Status: Completed infusion; IV Intake: zb 1000ml 15:35 Drug: Tylenol 650 mg Route: PO; zb 19:00 Follow up: Response: No adverse reaction zb 16:25 Drug: Benadryl (diphenhydrAMINE) 12.5 mg Route: IVP; Site: right femoral; jl7 18:00 Follow up: Response: No adverse reaction zb 16:28 Drug: Solu-CORTEF (hyrdoCORTISONE) 50 mg Route: IVP; Site: right antecubital; jl7 18:00 Follow up: Response: No adverse reaction zb 16:30 Drug: ProTONIX (pantoprazole) 80 mg Route: IVP; Site: right wrist; jl7 17:00 Follow up: Response: No adverse reaction zb 17:00 Drug: Ativan (LORazepam) 0.5 mg Route: IVP; Site: right femoral; zb 19:00 Follow up: Response: No adverse reaction; Anxiety decreased zb 17:30 Drug: Vitamin K1 (phytonadione) 10 mg Route: Sub-Q; Site: left upper arm; zb 19:00 Follow up: Response: No adverse reaction zb 17:38 Drug: Dopamine drip 5 mcg/kg/min - (DOPamine 400 mg, D5W 250 ml) Route: IV; Rate: iw calculated rate; Site: right femoral; 17:52 Follow up: Rate change 15 mcg/kg/min iw 19:44 Follow up: IV Status: Infusion continued upon transfer; IV Intake: 10ml zb 18:21 Drug: Meropenem 1 grams Route: IV; Rate: calculated rate; Site: right femoral; jl7 19:00 Follow up: IV Status: Completed infusion; IV Intake: 100ml zb Intake: 15:30 IV: 1000ml; Total: 1000ml. jl7 16:00 IV: 1000ml; Total: 2000ml. jl7 19:00 IV: 100ml; Total: 2100ml. zb 19:44 IV: 1000ml; Total: 3100ml. zb 19:44 IV: 10ml; Total: 3110ml. zb Output: 17:15 Urine: 100ml (Be); Total: 100ml. zb Outcome: 18:12 ER care complete, transfer ordered by MD. pm1 19:00 Transferred by helicopter to [facility], Transfer form completed. zb 19:00 Condition: stable 19:00 Instructed on the need for transfer. 19:45 Patient left the ED. zb Signatures: Dispatcher [employer] Bettye Llamas RN RN iw Kian Abarca, JOSE CHEMICAL PACKAGER pm1 Bao Dukes RN RN jl7 Jenny Matthews Tyler tt3 Virginia Anna RN RN zsiena Corrections: (The following items were deleted from the chart) 20:19 16:30 Reassessment: started first transfusion of blood. zb zb 20:19 17:00 Reassessment: Patient appears in no apparent distress at this time. Patient zb and/or family updated on plan of care and expected duration. Pain level reassessed. Patient is alert, oriented x 3, equal unlabored respirations, skin warm/dry/pink. zb 20:20 19:52 Reassessment: zb zb 20:23 14:30 Reassessment: patient had large bloody BM notified ECP zb zb 20:42 18:06 BP 109 / 44; Pulse 44bpm; Resp 18bpm; Pulse Ox 98% RA; zb zb
--- NOTE | 2020-10-01 19:25 | CON ---
Date of Consultation: 10/01/2020 Reason For Consultation: GI bleed. History Of Present Illness: The patient is a 74-year-old gentleman who comes to the emergency room v ia ambulance for acute onset of lower GI bleed, bright red blood per rectum. He has had similar epis odes in the past requiring a colon resection that was more than 10 years ago. I did the surgery and since that time, he has had a couple of colonoscopy. He does have some diverticulosis and has not patel d any major bleeding episodes since that time. He went to the bathroom and had a large bowel movemen t with blood in his stool. Call 911. He came to the emergency room. He was hemodynamically unstabl e, hypertensive. He is on beta blockers. He was not tachycardic. His initial hemoglobin was 11, th e repeat was lower 4 that is being repeated again. He is getting some blood product, as we speak. H is blood pressures come up to around 90 systolic. He is awake and alert, in no acute distress. He i s anxious. No sore throat, runny nose, cough, headaches, or dizziness. No chest pain. No fever or chills. Review of Systems: Otherwise, unremarkable. Past Medical History: Significant for anxiety, depression, GERD, high cholesterol, hypertension, cor onary artery disease. 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 Allergies: INCLUDE IODINE AND PENICILLIN. Social History: Patient does not smoke. Does not drink alcohol. Family History: Noncontributory. Physical Examination: Vitals Signs: Right now are systolic of 90, he is not tachycardic, otherwise, vitals are stable. He is afebrile. General: He is awake, alert, and oriented x3. Head And Neck: Cranial nerves 2 through 12 are grossly within normal limits. No neck masses. No JVD . Throat clear. Neck supple. Chest: Clear. Heart: S1 and S2. Abdomen: Soft, nondistended, nontender. Positive bowel sounds. Extremities: Neurovascularly intact. Neurologic: Nonfocal. Rectal: Exam reveals bright red blood per rectum. No obvious source of bleeding seen from the rectal region. Laboratory Data: Reviewed. Assessment: A 74-year-old gentleman with multiple medical problems with a lower gastrointestinal ble ed. Etiology unclear at this time. The patient did have a CT of the abdomen and pelvis. It was unr emarkable, just showed some fluid filled colon and a right posterolateral hernia, containing a portio n of the liver. My recommendation would be to try to transfer this patient to a tertiary care facili ty where the availability of GI service and Interventional Radiology present. Essentially, patient n eeds a bleeding scan, if positive needs an arteriogram with attempt at nonsurgical interventions to s top the bleeding. If all measures fail, then he may require surgical intervention but at this time, the source of bleeding is not known and plan of care discussed in detail with Dr. Ernst. The ER i s actively trying to transfer this patient at this time. SHANON/J LUIS Voice ID: [id number] Report ID: [id number]
[2020-10-01 19:50] VITALS: TEMP 97
[2020-10-01 20:01] VITALS: BP 112/64; O2SAT 97
--- NOTE | 2020-10-02 10:41 | EKG ---
Test Date: 2020-10-01 Test Time: 14:02:33 Director Of Revenue: LISE MEASUREMENT RESULTS: Intervals: Rate: 73 SC: 132 QRSD: 112 QT: 464 QTc: 511 [place]: P: -57 SC: 132 QRS: 79 T: 58 INTERPRETIVE STATEMENTS: Unusual P axis, possible ectopic atrial rhythm RSR' or QR pattern in V1 suggests right ventricular conduction delay Prolonged QT Abnormal ECG Compared to ECG 03/17/2019 15:51:26 RSR' in V1 or V2 now present Sinus rhythm no longer present Electronically Signed On 10-02-20 10:39:53 CDT by Arnaldo Diaz
== END 2020-10-01 19:45 | disposition short-term general hospital (02) ==
LOC: ER 13:54
PROC: 30233K1 Transfusion of Nonautologous Frozen Plasma into Peripheral Vein, Percutaneous Approach (ICD-10-PCS; principal; 2020-10-01)
PROC: 30233N1 Transfusion of Nonautologous Red Blood Cells into Peripheral Vein, Percutaneous Approach (ICD-10-PCS; 2020-10-01)
PROC: 30233R1 Transfusion of Nonautologous Platelets into Peripheral Vein, Percutaneous Approach (ICD-10-PCS; 2020-10-01)
PROC: 06HM33Z Insertion of Infusion Device into Right Femoral Vein, Percutaneous Approach (ICD-10-PCS; 2020-10-01)
DX: K92.2 Gastrointestinal hemorrhage, unspecified (principal); I10 Essential (primary) hypertension; F41.8 Other specified anxiety disorders; Z88.0 Allergy status to penicillin; Z79.82 Long term (current) use of aspirin; Z20.822 Contact with and (suspected) exposure to COVID-19; Z95.1 Presence of aortocoronary bypass graft; Z91.048 Other nonmedicinal substance allergy status
CPT/HCPCS: 93005; 85025; 80048; 36415; 86900; 83735; 86850; 85610; 86901; 80076; 85018; 85014; 84484; 83880; 74176; 71045; 96372; 99285; 36430; 36556; U0003; J3430; J1200; J2543; C9113; J2185; P9035; P9016 ×4; P9059 ×2; J1265; J7050 ×3; J7030 ×2; J1720

== ENCOUNTER 2021-01-06 09:36 | Emergency (ER) | payer OTHER, BC ==
--- OUTSIDE RECORDS SUMMARY | 2021-01-06 09:43 | XMS REPORT | Continuity of Care Document ---
:[address] [facility] [place], [place] t Address [address] [place] [address] Care Team Providers Name Role Phone Jerrell Pierce MD Primary Care Physician Provider Attending Clinician Unavailable Yaritza Curtis Attending Clinician Unavailable Brooke Espino Attending Clinician Unavailable PETER Attending Clinician Unavailable PETER Attending Clinician Unavailable Archie Kerr MD Attending Clinician Sugar SANTOS Attending Clinician Unavailable Nolberto MOSQUERA [facility] Attending Clinician Obi King DO Attending Clinician Dickson MOSQUERA Attending Clinician Ame Attending Clinician Bear Graham MD Attending Clinician Pierre York MD Attending Clinician Lisa Pedraza Attending Clinician LISA HENSON Attending Clinician Unavailable Sahil Mosley MD Attending Clinician Madhu VILLAFUERTE Admitting Clinician Unavailable Yaritza Curtis Admitting Clinician Unavailable Brooke Espino Admitting Clinician Unavailable Physician, Primary or Family Admitting Clinician Unavailrashmi BELLAMY Admitting Clinician Unavailable CHRISTINE Admitting Clinician Unavailable Payers Payer Name Policy Type Policy Effective Date Expiration Date Sour ce Number MEDICAREMEDICARE PART [id number] 2010 Me thodist A AND 00:00:00 Hospital [id number] [place] [id number] 2010 Sathya quintanilla MEDICARE 4 00:00:00 Hospital [id number] [facility] Condition Condition Condition Status Onset [...] spita right leg right leg 00 l Palpitatio Palpitatio Disease Active 2019-02 [facility] ns ns 0-10 College 00:00: of 00 Medicin e History of History of Disease Active 2019-02 [facility] Chronic Chronic 0-10 College renal renal 00:00: of dialysis dialysis 00 Medici n (Current) (Current) e History of History of Disease Active 2019-02 [facility] knee knee 0-10 [place] replacemen replacemen 00:00: of t, total, t, total, 00 Medi sky bilateral bilateral e 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 Added automatic ally from request for surgery [id number] End stage End stage Disease Active Met [facility]odi renal renal 1-23 st disease on disease on 00:00: Ho spita dialysis dialysis 00 l Impaired Impaired Disease Active 2018-02 [facility] fasting fasting 1-17 [place] glucose glucose 00:00: of 00 Medicin e Urinary Urinary Disease Active 2018-02 [facility] frequency frequency 1-17 Natan ege 00:00: of 00 Medicin e Chronic Chronic Disease Active 2018-02 [facility] disease disease 0-09 st anemia anemia 00:00: Hospita 00 l Chronic Chronic Disease Active 2018-02 [facility] kidney kidney 0-09 disease, disease, 00:00: Hospit a stage IV stage IV 00 l (severe) (severe) Arthritis Arthritis Disease Active 2017-02 [facility] of knee, of knee, 211 Colleg e left left 00:00: of 00 Medicin e 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 [facility] knee knee 03-24 College replacemen replacemen 00:00: of t, t, 00 Medicin bilateral bilateral e Anemia, Anemia, Disease Active 2017-02 [facility] unspecifie unspecifie 1 st d d 00:00: Hospita 00 l Chronic Chronic Disease Active [facility] renal renal 6 [place] disease, disease, 00:00: of stage 4, stage 4, 00 Medici n severely severely e decreased decreased glomerular glomerular filtration filtration rate (GFR) rate (GFR) between between 15-29 15-29 mL/min/1.7 mL/min/1.7 3 square 3 square meter meter (HCCode) (HCCode) Atheroscle Atheroscle Disease Active Overview : [facility] rosis of rosis of 8 [employer] [place] 00:00: standing of coronary coronary 00 disease, Medi sky artery of artery of stable e [place] with heart heart current without without RxLast angina angina Assessmen pectoris pectoris t & Plan: Continue current Rx and control all risk factors including weight Essential Essential Disease Active Overview: [facility] hypertensi hypertensi 09-23 Stable Co llege on on 00:00: and of 00 sometimes Medicin BP drops e too muchLast Assessmen t & Plan: Continue current Rx and control all risk factors including weight Heart Heart Disease Active Overview: [facility] murmur murmur - A College 00:00: systolic of 00 murmur Medicin Grade 2/6 e over LSB , not radiating in any direction but audible over most of [place] l areaLast Assessmen t & Plan: Continue current Rx and control all risk factors including weight S/P S/P Disease Active Overview: [facility] angioplast angioplast 8- In 2009 [place] y with y with 00:00: he had A of stent stent 00 stent Medicin deployed e in proximal RCA andCx had only Angioplas ty with good resultsLa [facility] t & Plan: Continue current Rx and control all risk factors including weight H/O H/O Disease Active Overview: [facility] unilateral unilateral 09-23 He had Co llege nephrectom nephrectom 00:00: nephrecto of y y 00 my long Medicin time ago e and the other kidney is weakLast Assessmen t & Plan: Monitor closely Rx and control all risk factors including weight Dyslipidem Dyslipidem Disease Active Overview : [facility] ia ia 09-23 Last year College 00:00: they were of 00 not Medicin perfectCu e rrent [facility] t & Plan: Continue current Rx and control all risk factors including weight. 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 Antibioti c [facility] & Plan: Continue current Rx and control all risk factors including weight Infection Infection Disease Active [facility] of of 5-31 st prosthetic prosthetic 00:00: Ho spita right knee right knee 00 l joint joint Fever Fever Disease [facility] Mechanical Mechanical Disease Active [facility] loosening loosening 6-16 Luke s - of of 00:00: Medical prosthetic prosthetic 00 Ce nter joint joint ROUTINE Condition Active 2014-02-18 Me moria GENERAL 02-18 10:35:00 l MEDICAL ROUTINE 00:00: [place] n EXAMINATIO GENERAL 00 N AT A MEDICAL HEALTH EXAMINATIO CARE N AT A FACILITY HEALTH CARE FACILITY Active 02/18/2014 Condition 5 [facility] Group HYPERTROPH Condition Active 2012-022014-02-18 [facility]oria Y PROSTATE 03-26 10:35:00 l W/UR OBST 00:00: Jimmy & OTH LUTS HYPERTROPH 00 Y PROSTATE W/UR OBST & OTH LUTS Active 01/23/2013 Condition 5 Medical Group DYSLIPIDEM Condition Active 2014-02-18 Memoria IA 10:35:00 l [place] DYSLIPIDEM IA Active Condition 02/18/2014 Medical Group GERD Condition Active 2014-02-18 Mem oria 10:35:00 l GERD [place] Active Condition 02/18/2014 Medical Group ASCVD Condition Active 2014-02-18 Mem oria 10:35:00 l ASCVD [place] Active Condition 02/18/2014 Medical Group CAD Condition Active 2014-02-18 Mem oria 10:35:00 l CAD Jimmy Active Condition 02/18/2014 Medical Group CHRONIC Condition Active 2014-02-18 Me moria KIDNEY 10:35:00 l DISEASE CHRONIC [place] n STAGE III KIDNEY (MODERATE) DISEASE STAGE III (MODERATE) Active Condition 02/18/2014 Medical Group HYPERTENSI Condition Active 2014-02-18 [facility]oria ON 10:35:00 l [place] HYPERTENSI ON Active Condition 02/18/2014 Medical Group Allergies, Adverse Reactions, Alerts Allergy Allergy Status Severity Reaction(s) Onset Inactive Treating Comm ents Source Name Type Date Date Clinician No Known DA Active U 2020-0 [facility] [place] [facility] 00:[facility]: d 00 [facility] No Known DA Active U 2020-0 [facility] Allergie -02 [place] 00:[facility]: d 00 [facility] Iodine FA Active [place] DIARRHEA 2020-0 [facility] and [facility] [place] Iodide 00:00: d Containi 00 [facility] Produc shellfis FA Active SV SWELLING 2020-0 [facility] h [facility] [place] derived 00:00: d 00 [facility] Iodine FA Active NV 2020-0 [facility] and 05-13 Clear Iodide 00:00: [place] Containi 00 [facility] shellfis FA Active SV 2020-0 [facility] h - Clear derived 00:00: [place] 00 [facility] PINICILL DA Active NV ITCHING 2020-0 [facility] IN 4- Clear 00:00: [place] 00 [facility] Iodine Propensi Active Rash 2020-0 Univers ty to 9-30 ity of adverse 00:00: [place] reaction 00 [facility] Penicill Propensi Active Anaphylaxis 2020-0 U nivers ins ty to 9-30 ity of adverse 00:00: [place] reaction 00 [facility] IODINE DRUG Active Rash 2020-0 Univers INGREDI 9-30 ity of 00:00: [place] 00 [facility] PENICILL Drug Active Anaphylaxis Uni vers INS Class 9-30 ity of 00:00: [place] [facility] SHELLFIS DRUG Active Diarrhea 2019-0 Univer s H INGREDI 9-30 ity of DERIVED 00:00: Medical Branch Shellfis Propensi Active Nausea Univer s h ty to and/or 30 ity of Derived adverse Vomiting 00:00: [place] reaction 00 Medical s Branch Penicill Propensi Active 2017-02 [facility] ins ty to 2-10 College adverse 00:00: of reaction 00 Medicin s to e drug Fish-Polo Propensi Active Moderate [facility] ived ty to 8-13 [place] Products adverse 00:00: of reaction 00 Medicin s to e drug Iodine Propensi Active Moderate Arm[facility] ty to 8-13 College adverse 00:00: of reaction 00 Medicin s to e drug Eicosape Propensi [facility] Acid adverse 00:00: Medical reaction 00 Center s Shellfis Propensi Active Nausea And 2015-02 Me thodi h ty to Vomiting 0-21 st Containi adverse 00:00: Hospita ng reaction 00 l Products s to drug Iodine Propensi Active Rash 2015-02 Methodi ty to 0-20 st adverse 00:00: Hospita reaction 00 l s to drug Penicill Propensi Active Rash 2015-02 unknown Metho di ins ty to 0-20 st adverse 00:00: Hospita reaction 00 l s to drug Iodine Propensi Active Rash 2015-[address] ty to 0-20 [facility] - adverse 00:00: Medical reaction 00 Center s Atorvast Propensi Active [facility] atin ty to 2-24 College adverse 00:00: of reaction 00 Medicin s to e drug Atorvast Propensi Active [facility] at[facility] ty to 2-24 [facility] - adverse 00:00: Medical reaction 00 Center s Penicill Propensi Active Hives, unknown [facility] ins ty to Anaphylaxis 5-29 [facility] - adverse 00:00: Medical reaction 00 Center s Shellfis Propensi Active Diarrhea, [facility] ty to Nausea And 5-29 [facility] - Containi adverse Vomiting 00:00: Medic al ng reaction 00 Center Products s PCN PCN Active Chela Marquez IODINE IODINE Active Chela Marquez Family History Family Member Diagnosis Comments Start Date Stop Date Source Natural father Heart disease [facility] Natural mother COPD [facility] Social History Social Habit Start Date Stop Date Quantity Comments Source Sex Assigned At [facility] llege of Medicine Exposure to Unable to assess Univers ity of SARS-CoV-2 [facility] (event) Branch Tobacco use and 2019-11-19 2019-11-19 Never used [facility] llege of exposure 00:00:00 00:00:00 Medicine Alcohol intake 2019-11-19 2019-11-19 Current [facility] lege of 00:00:00 00:00:00 non-drinker of Medicine alcohol (finding) Smoking Status Start Date Stop Date Source Never smoker [facility] o f Medicine Unknown if ever smoked [facility] Medications Ordered Filled Start Stop Current Ordering Indication Dosage Frequency Signature Comments Components Source Medication Medication Date Date Medication? Clinician (SIG) Name Name gabapentin 2020- No 100mg Q.5D Take 100 M ethodi (NEURONTIN) 03-26-[address] 100 mg 17:35: 00:00 mouth 2 Hospita capsule 37 :00 (two) l times a day. Take 2 capsules (total of 200 mg) in the evening sulfamethox No 800mg QD Take 800 [facility]i azole/trime - 02-[address] thoprim 17:35: 00:00 mouth Hospita (BACTRIM 37 :00 daily. l ORAL) zolpidem No 10mg QD Take 10 mg Me thodi (AMBIEN) 10 03-26- by mouth st mg tablet 17:35: 00:00 nightly. Hos imelda 37 :00 l aspirin No 81mg QD Take 81 mg Met hodi (ECOTRIN) 03-26- by mouth st 81 MG 17:35: 00:00 daily. Hospita enteric 37 :00 l coated tablet traZODone No 100mg QD Take 100 Me thodi (DESYREL) 03-26-[address] 100 MG 17:35: 00:00 mouth Hospita tablet 37 :00 nightly. l varunvelam Yes Take by Met hodi (WELCHOL) 2-[address] 3.75 gram 17:35: Welchol Hospi ta powder in 31 (ONLY) l packet Take 2 - 3.75 gram packets per day after AM & PM FLUTICASONE 0 Yes Q.5D into each M ethodi PROPIONATE 2-[address] NASL 17:35: (two) Hospita 31 times a l day. [place] twice daily diphenhydrA Yes 25mg Take 25 [...] Saturday, ORAL) Saturday, and Saturday. After dialysis acetaminoph Yes 2000mg QD Take 2,000 Methodi en 2-[address] (TYLENOL) 17:35: mouth Hospita 500 MG 31 daily. l tablet tamsulosin Yes .4mg QD Take 0.4 Met hodi (FLOMAX) 2-[address] 0.4 mg 17:35: mouth Hospita capsule 31 every l morning. clopidogreL 0 Yes 75mg QD Take 75 mg Methodi (PLAVIX) 75 2-[address] mg tablet 17:35: every Hospita 31 morning. l vit A/vit Yes 1{tbl} Q.5D Take 1 Meth herminia C/vit 2-[address] E/zinc/bravo 17:35: mouth 2 Hos imelda er 31 (two) l (PRESERVISI times a ON ARE day. ORAL) metoprolol 2022020- No 25mg Q.5D Take 1 Meth herminia [...] by mouth l nightly for 30 days. Multiple 2019-02 Yes Qd [place] Vitamins-Mi 0-08 College nerals (EYE 16:05: of VITAMINS 09 Medicin OR) e Tamsulosin 2019-02 Yes 4mg 4 mg [facility] HCl 0.4 MG 0-08 daily. Qd Natan ege CAPS 16:05: of 09 Medicin e FLUTICASONE 2019-02 Yes two times [facility] PROPIONATE, 0-08 daily. Bid Co llege INHAL, 16:05: of INHALATION- 09 Medicin B e pantoprazol 2019-02 Yes 40mg 40 mg [facility] 0-08 daily. qd College (PROTONIX) 16:05: of 40 MG 09 Medicin tablet e zolpidem 2019-02 Yes 10mg Take 10 mg [facility] t[facility] (AMBIEN) 5 0-08 by mouth Colle ge MG tablet 16:05: nightly as of 09 needed for Medicin Sleep. e Sulfamethox 2019-02 Yes Take by Ba ylor azole-Trime 0-08 mouth College thoprim 16:05: daily. of (BACTRIM 09 Medicin OR) e furosemide 2019-02 Yes 40mg Take 40 mg [facility] (LASIX) 40 0-08 by mouth Colle ge MG tablet 16:05: daily. of 09 Medicin e gabapentin 2019-02 Yes 100mg Take 100 [facility] (NEURONTIN) 0-08 mg by College 100 MG 16:05: mouth two of capsule 09 times Medicin daily. e DESVENLAFAX 2019-02- No Take by [facility] INE ER OR 0-08 - mouth College 16:04: 00:00 daily. of 59 :00 Medicin e Coenzyme 2019-02- No 1 po qd [facility] Q10 100 MG 011-18 College CHEW 16:04: 00:00 of 50 :00 Medicin e Niacin CR 2019-02- No 1 po qd [facility] or 500 MG CPCR 011-18 [place] 16:03: 00:00 of 53 :00 Medicin e Colesevelam Yes TAKE [facility] taylor HCl 3.75 g 11-03 DIRECTED Colle ge PACK 00:00: TWICE of 00 DAILY Medicin e sulfamethox 2020- No 1{tbl} QD Take 1 M ethodi azole-trime 11-02- tablet by st thoprim 00:00: 00:00 mouth Hospita (Bactrim) 00 :00 daily. l 400-80 mg per tablet sulfamethox 2019- No TAKE ONE M ethodi azole-trime 08-[address] thoprim 00:00: 00:00 MOUTH Hospita (BACTRIM 00 :00 DAILY l DS) 800-160 mg per tablet metoprolol Yes TAKE ONE [facility] taylor (LOPRESSOR) 1-24 TABLET BY Col lege 50 MG 00:00: MOUTH of tablet 00 TWICE A Medicin DAY e clopidogrel 2018-02 Yes TAKE ONE [facility] (PLAVIX) 75 2-09 TABLET BY Col lege MG Tablet 00:00: MOUTH of 00 DAILY Medicin e Nisoldipine 2018-02- No TAKE ONE [facility] 34 MG TB24 -13 11-18 TABLET BY Col lege 00:00: 00:00 MOUTH of 00 :00 DAILY Medicin e COLESEVELAM 2016-02 Yes 3.75g Take 3.[address] HCL 2-15 g by mouth [facility] - (WELCHOL 17:11: 2 (two) Medica l ORAL) 46 times Center daily with breakfast and dinner . coenzyme 2016-02 Yes [address] [facility] Q10 100 mg 2-15 [facility] - Chew 17:11: [address] niacin 500 2016-02 Yes [address] [facility] MG CR 2-15 [facility] - capsule 17:11: [address] zolpidem 2016-02 Yes 10mg Take [address] (AMBIEN) 10 2-15 by mouth Luke s - mg tablet 17:10: every Medical 17 night as Center needed for Insomnia. DULoxetine 2016-02 Yes 60mg QD Take [address] (CYMBALTA) 2-15 by mouth [facility] - 60 MG 17:10: daily. Medical capsule 17 [place] NIFEdipine 2016-02 Yes 60mg QD Take [address] (PROCARDIA- 2-15 by mouth Luke s - XL) 60 MG 17:10: daily. Medica l (OSM) 24 hr 17 [place] tablet losartan 2020- No TAKE ONE [facility] or (COZAAR) 5-21 10-08 TABLET BY Colle ge 100 MG 00:00: 00:00 MOUTH of tablet 00 :00 DAILY Medicin e tamsulosin Yes .4mg 0.[address] (FLOMAX) 5-23 [facility] - 0.4 mg Cp24 00:00: Medica l 24 hr 00 Center capsule pantoprazol 2014-0 Yes QD daily . [facility] e 5-22 [facility] - (PROTONIX) 00:00: Medical 40 MG 00 Center tablet pantoprazol 2014-0 Yes 40mg QD Take 40 mg Methodi e 5-[address] (PROTONIX) 00:00: every Hospit a 40 MG EC 00 morning. l tablet clopidogrel 2014-0 Yes QD daily . [facility] (PLAVIX) [...] MG 00:00: daily . Medical tablet 00 [place] nisoldipine Yes 34mg QD 34 mg [facility] t (SULAR) 34 5-12 daily . [facility] - MG 24 hr 00:00: Medical tablet 00 [place] metoprolol 1- No 25mg QD Take 25 mg Methodi tartrate 06-22- by mouth st (LOPRESSOR) 00:00: 00:00 daily. Hos imelda 50 MG 00 :00 l tablet CLOPIDOGREL Yes TAKE 1 Andres dora BISULFATE 1-08 TABLET BY l 75 MG TABS 10:35: MOUTH [place] 00 DAILY NISOLDIPINE Yes TAKE 1 Andres dora ER 34 MG 1-08 TABLET BY l [id number] 10:35: MOUTH [place] 00 DAILY LOSARTAN Yes TAKE 1 Memoria POTASSIUM 1-08 TABLET BY l 100 MG TABS 10:35: MOUTH Mary nn 00 DAILY CYMBALTA 60 Yes TAKE 1 Andres dora MG CPEP 1-08 TABLET BY l 10:35: MOUTH Jimmy 00 DAILY PANTOPRAZOL Yes TAKE 1 Andres dora E SODIUM 40 1-08 TABLET BY l MG TBEC 10:35: MOUTH [place] 00 DAILY CLOPIDOGREL Yes TAKE 1 Andres dora BISULFATE 1-08 TABLET BY l 75 MG TABS 10:35: MOUTH [place] 00 DAILY NISOLDIPINE Yes TAKE 1 Andres dora ER 34 MG 1-08 TABLET BY l [id number] 10:35: MOUTH Jimmy 00 DAILY LOSARTAN Yes TAKE 1 [facility]oria POTASSIUM 1-08 TABLET BY l 100 MG TABS 10:35: MOUTH Mary nn 00 DAILY CYMBALTA 60 Yes TAKE 1 Andres dora MG CPEP 1-08 TABLET BY l 10:35: MOUTH Jimmy 00 DAILY PANTOPRAZOL Yes TAKE 1 Andres dora E SODIUM 40 1-08 TABLET BY l MG TBEC 10:35: MOUTH Jimmy 00 DAILY WELCHOL Yes 2 packs Memoria 3.75 GM 1-08 per day AM l PACK 00:00: & PM Jimmy 00 NIACIN 500 2015-0 Yes 1 tab Memori a MG TABS 1-08 daily l 00:00: PAPAYA 2014-0 Yes 2 tablet Memoria ENZYME TABS 1-08 after main l 00:00: meals METOPROLOL 0 Yes 2 tab AM & M emoria TARTRATE 50 1-08 1 tab PM l MG TABS 00:00: WELCHOL 0 Yes 2 packs Memoria 3.75 GM 1-08 per day AM l PACK 00:00: & PM NIACIN 500 2014-0 Yes 1 tab Memori a MG TABS 1-08 daily l 00:00: PAPAYA 2014-0 Yes 2 tablet Memoria ENZYME TABS 1-08 after main l 00:00: meals METOPROLOL Yes 2 tab AM & M emoria TARTRATE 50 1-08 1 tab PM l MG TABS 00:00: METOPROLOL 2012-02 Yes TAKE 1 Memor ia TARTRATE 50 2-13 TABLET BY l MG TABS 14:45: MOUTH Jimmy DAILY LOSARTAN 2012-02 Yes TAKE 1 Memoria POTASSIUM 2-13 TABLET BY l 100 MG TABS 14:45: MOUTH Mary nn DAILY WELCHOL 2012-02 Yes TAKE 1 Memoria 3.75 GM 2-13 TABLET BY l PACK 14:45: MOUTH Jimmy DAILY CYMBALTA 60 2012-02 Yes TAKE 1 Andres dora MG CPEP 2-13 TABLET BY l 14:45: MOUTH [place] DAILY PANTOPRAZOL 2012-02 Yes TAKE 1 Andres dora E SODIUM 40 2-13 TABLET BY l MG TBEC 14:45: MOUTH Jimmy DAILY METOPROLOL 2012-02 Yes TAKE 1 Memor ia TARTRATE 50 2-13 TABLET BY l MG TABS 14:45: MOUTH [place] DAILY LOSARTAN 2012-02 Yes TAKE 1 [facility]oria POTASSIUM 2-13 TABLET BY l 100 MG TABS 14:45: MOUTH Mary nn DAILY WELCHOL 2012-02 Yes TAKE 1 Memoria 3.75 GM 2-13 TABLET BY l PACK 14:45: MOUTH [place] 00 DAILY CYMBALTA 60 2012-02 Yes TAKE 1 Andres dora MG CPEP 2-13 TABLET BY l 14:45: MOUTH [place] DAILY PANTOPRAZOL 2012-02 Yes TAKE 1 Andres dora E SODIUM 40 2-13 TABLET BY l MG TBEC 14:45: MOUTH [place] 00 DAILY PLAVIX 75 2012-02 No TAKE 1 Memori a MG TABS 2-13 TABLET BY l 00:00: MOUTH Jimmy 00 DAILY OCUVITE EYE 2012-02 Yes Memori a + MULTI 2-13 l TABS 00:00: [place] 00 COQ10 CAPS 2012-02 Yes Memoria 2-13 l 00:00: [place] 00 ASPIRIN 81 2012-02 Yes Memoria MG TABS 2-13 l 00:00: [place] 00 FLOMAX 0.4 2012-02 Yes one every Me moria MG CAPS 2-13 evening. l 00:00: [place] 00 LUNESTA 3 2012-02 Yes TAKE 1 Memori a MG TABS 2-13 TABLET BY l 00:00: MOUTH [place] DAILY LUNESTA 3 2012-02 Yes TAKE 1 Memori a MG TABS 2-13 TABLET BY l 00:00: MOUTH [place] DAILY FLOMAX 0.4 2012-02 No one every Me moria MG CAPS 2-13 evening. l 00:00: [place] 00 PLAVIX 75 2012-02 No TAKE 1 Memori a MG TABS 2-13 TABLET BY l 00:00: MOUTH Jimmy DAILY OCUVITE EYE 2012-02 Yes Memori a + MULTI 2-13 l TABS 00:00: [place] 00 COQ10 CAPS 2012-02 Yes Memoria 2-13 l 00:00: [place] 00 ASPIRIN 81 2012-02 Yes Memoria MG TABS 2-13 l 00:00: [place] 00 FLOMAX 0.4 2012-02 Yes one every Me moria MG CAPS 2-13 evening. l 00:00: JimmyESTA 3 2012-02 Yes TAKE 1 Memori a MG TABS 2-13 TABLET BY l 00:00: MOUTH [place] DAILY LUNESTA 3 2012-02 Yes TAKE 1 Memori a MG TABS 2-13 TABLET BY l 00:00: MOUTH [place] 00 DAILY FLOMAX 0.4 2012-02 No one every Me moria MG CAPS 2-13 evening. l 00:00: [place] 00 FLUTICASONE Yes 1 spray in Memoria PROPIONATE 6-05 each l 50 MCG/ACT 00:00: nostrill Her garcia SUSP 00 twice day FLUTICASONE Yes 1 spray in Memoria PROPIONATE 6-05 each l 50 MCG/ACT 00:00: nostrill Her garcia SUSP 00 twice day FLUTICASONE 2012- Yes 1 spray in Memoria PROPIONATE 6-05 each l 50 MCG/ACT 00:00: nostrill Her garcia SUSP 00 twice day FLUTICASONE Yes 1 spray in Memoria PROPIONATE 6-05 each l 50 MCG/ACT 00:00: nostrill Her garcia SUSP 00 twice day Immunizations Ordered Immunization Filled Immunization Date Status Commen ts Source Name Name influenza 2010-10-16 Completed [facility] immunization (Flu 14:23:57 [place] Vax) has been administered influenza 2010-10-16 Completed [facility] (Flu 14:23:57 [facility] Vax) has been administered pneumococcal 2007-06-14 Completed [facility] immunization 14:23:57 [place] administered pneumococcal 2007-06-14 Completed [facility] immunization 14:23:57 [place] administered hepatitis B vaccine 2006-04-11 Completed Memor ial #3 15:23:57 [place] hepatitis B vaccine 2006-04-11 Completed Memor ial #3 15:23:57 [place] chicken pox 2006-03-20 Completed [facility] immunization #1 15:23:57 Jimmy chicken pox 2006-03-20 Completed [facility] immunization #1 15:23:57 [facility] hepatitis B vaccine 2006-03-15 Completed Memor ial #2 given 15:23:57 [place] hepatitis B vaccine 2006-03-15 Completed Memor ial #2 given 15:23:57 [place] MMR (measles, mumps, 2006-02-28 Completed Andres rial rubella) virus 15:23:57 [place] immunization #1 MMR (measles, mumps, 2006-02-28 Completed Andres rial rubella) virus 15:23:57 [place] immunization #1 hepatitis B vaccine 2006-02-25 Completed Memor ial #1 given 15:23:57 [place] hepatitis B vaccine 2006-02-25 Completed Memor ial #1 given 15:23:57 [place] Vital Signs Vital Name Observation Time Observation Value Comments Source Systolic blood 2019-11-19 15:57:00 146 mm[Hg] [facility] pressure Medicine Diastolic blood 2019-11-19 15:57:00 72 mm[Hg] [facility] pressure Medicine Heart rate 2019-11-19 15:57:00 91 /min [facility]lege [facility] Body height 2019-11-19 15:57:00 172.7 cm [facility] Body weight 2019-11-19 15:57:00 83.462 kg [facility] BMI 2019-11-19 15:57:00 27.98 kg/m2 [facility] ollege of Medicine Systolic blood 2019-11-19 15:57:00 146 mm[Hg] [facility] Medicine Diastolic blood 2019-11-19 15:57:00 72 mm[Hg] [facility] Medicine Heart rate 2019-11-19 15:57:00 91 /min [facility] ollege of Medicine Body height 2019-11-19 15:57:00 172.7 cm [facility] ollege of Medicine Body weight 2019-11-19 15:57:00 83.462 kg [facility] BMI 2019-11-19 15:57:00 27.98 kg/m2 [facility] Systolic blood 2019-11-12 01:28:00 126 mm[Hg] Univer sity of pressure [facility] Diastolic blood 2019-11-12 01:28:00 63 mm[Hg] Unive rsity of pressure [facility] Heart rate 2019-11-12 01:28:00 84 /min [facility]i [facility] Respiratory rate 2019-11-12 01:28:00 20 /min Univ ersity of [facility] Oxygen saturation in 2019-11-12 01:28:00 100 /min University of Arterial blood by [facility] Pulse oximetry Branch Systolic blood 2019-11-12 01:00:00 142 mm[Hg] Univer sity of pressure [facility] Diastolic blood 2019-11-12 01:00:00 71 mm[Hg] Unive rsity of pressure [facility] Heart rate 2019-11-12 01:00:00 84 /min [facility] Respiratory rate 2019-11-12 01:00:00 14 /min Univ ersity [facility] Oxygen saturation in 2019-11-12 01:00:00 99 /min University of Arterial blood by [facility] Pulse oximetry Branch Body temperature 2019-11-11 22:21:00 36.61 Pat Univ [facility] Body weight 2019-11-11 22:21:00 85 kg Universi ty of [facility] Systolic blood 2019-11-12 01:28:00 126 mm[Hg] Univer sity of pressure [facility] Diastolic blood 2019-11-12 01:28:00 63 mm[Hg] Unive rsity of [facility] Heart rate 2019-11-12 01:28:00 84 /min Universi ty of [facility] Respiratory rate 2019-11-12 01:28:00 20 /min Univ ersity of [facility] Oxygen saturation in 2019-11-12 01:28:00 100 /min University of Arterial blood by [facility] raman Pulse oximetry Branch Systolic blood 2019-11-12 01:00:00 142 mm[Hg] Univer sity of [facility] Diastolic blood 2019-11-12 01:00:00 71 mm[Hg] Unive rsity of [facility] Heart rate 2019-11-12 01:00:00 84 /min Universi ty [facility] Respiratory rate 2019-11-12 01:00:00 14 /min [facility] O[facility] in 2019-11-12 01:00:00 99 /min University of Arterial blood by [facility] Pulse oximetry Branch Body temperature 2019-11-11 22:21:00 36.61 [facility] Body weight 2019-11-11 22:21:00 85 kg [facility] Body height 2020-04-27 20:44:00 172.7 cm [facility] Body weight 2020-04-27 20:44:00 84.369 kg [facility] BMI 2020-04-27 20:44:00 28.28 kg/m2 [facility] Systolic blood 2020-03-26 14:44:51 139 mm[Hg] [facility] Diastolic blood 2020-03-26 14:44:51 66 mm[Hg] [facility] pressure Heart rate 2020-03-26 14:44:51 80 /min [facility] Body temperature 2020-03-26 14:44:[address] [facility] Respiratory rate 2020-03-26 14:44:51 19 /min [facility] Oxygen saturation in 2020-03-26 14:44:51 96 /min [facility] Arterial blood by Pulse oximetry Height 2014-02-18 15:55:42 [facility] Weight 2014-02-18 15:55:42 [facility] Temperature Oral (F) 2014-02-18 15:55:42 97.5 F [facility] Heart Rate 2014-02-18 15:55:42 [facility] Systolic (mm Hg) 2014-02-18 15:55:42 Andres rial Jimmy Diastolic (mm Hg) 2014-02-18 15:55:42 [facility] [place] Weight 2013-01-23 19:53:21 [facility] Temperature Oral (F) 2013-01-23 19:53:21 97.6 F [facility] Heart Rate 2013-01-23 19:53:21 [facility] [place] Height 2013-01-23 19:53:21 [facility] Systolic (mm Hg) 2013-01-23 19:53:21 Andres [facility] [place] Diastolic (mm Hg) 2013-01-23 19:53:21 [facility] [place] Procedures Procedure Date / Time Performing Clinician Source Performed [id number] 2020-05-24 00:00:00 GRANI [facility] [id number] 2020-05-20 00:00:00 GIBJE.01 [facility] J35W7ES 2020-05-20 00:00:00 GIBJE.01 [facility] [id number] 2020-05-20 00:00:00 GIBJE.01 [facility] 9F9L45T 2020-05-20 00:00:00 SEEGE [facility] 1R9L10Q 2020-05-16 00:00:00 JUSTINO.03 [facility] 0B9S66U 2020-05-14 00:00:00 JUSTINO.03 [facility] 4U6P72A 2020-05-11 00:00:00 ENCPL 3E3Q74N 2020-05-11 00:00:00 ENCPL 4X0T84R 2020-05-11 00:00:00 ENCPL 2R1Y12D 2020-03-30 00:00:00 ENCCY 6O4A70G 2020-03-30 00:00:00 ENCCY 8P5S45I 2020-03-30 00:00:00 ENCCY 4K3B88L 2020-03-30 00:00:00 ENCCY 3S9Q83Y 2020-03-30 00:00:00 ENCCY 6X6U16S 2020-03-30 00:00:00 ENCCY 1J7V13W 2020-03-30 00:00:00 ENCCY 7G9L35F 2020-03-30 00:00:00 ENCCY 9N8K57O 2020-03-30 00:00:00 ENCCY 5I9A87Q 2020-03-30 00:00:00 ENCCY 4V2E19D 2020-03-30 00:00:00 ENCCY 3U5W43A 2020-03-30 00:00:00 JENNIFERCY 4Z6M81T 2020-03-30 00:00:00 JENNIFERCY 9B4C91V 2020-03-30 00:00:00 JENNIFERCY 6L9H70T 2020-03-30 00:00:00 JENNIFERCY 4I8P99E 2020-03-30 00:00:00 JENNIFERCY 2O4A04N 2020-03-30 00:00:00 JENNIFERCY 8O4J93T 2020-03-30 00:00:00 JENNIFERCY 2D2I41P 2020-03-30 00:00:00 JENNIFERCY 1T2Q85D 2020-03-30 00:00:00 JENNIFERCY 6L3T86W 2020-03-30 00:00:00 MICHELLE HC COMPLETE BLD COUNT 2020-03-25 10:45:00 Christine [facility] W/AUTO DIFF Boi BASIC METABOLIC PANEL 2020-03-25 10:00:00 [facility] 2020-03-25 10:00:00 Clint King Ho spital Obi HEMODIALYSIS 2020-03-24 22:39:54 Maldonado [facility] HC COMPLETE BLD COUNT 2020-03-24 11:00:00 Clint King [facility] W/AUTO DIFF Obi BASIC METABOLIC PANEL 2020-03-24 10:00:00 Christine [facility] Obi ESTIMATED GFR 2020-03-24 10:00:00 Clint King Ho spital Obi US CAROTID DUPLEX 2020-03-23 18:31:05 [facility] BILATERAL BASIC METABOLIC PANEL 2020-03-23 09:20:00 [facility] Obi HC COMPLETE BLD COUNT 2020-03-23 09:20:00 [facility] W/AUTO DIFF Obi ESTIMATED GFR 2020-03-23 09:20:00 Clint King spital Obi POC GLUCOSE 2020-03-22 22:27:00 Clint King spital Obi HEMODIALYSIS 2020-03-22 22:13:20 Romy Woodson spital Tabitha ANAEROBIC CULTURE 2020-03-22 20:52:00 [facility] FUNGUS CULTURE 2020-03-22 20:52:00 Usha [facility] Taoism Ho spital AFB STAIN 2020-03-22 20:52:00 Usha Obipopeye Ferrer spital AEROBIC CULTURE 2020-03-22 20:52:00 Obi Kerr spital FUNGUS SMEAR 2020-03-22 20:52:00 Usha Obipopeye Ferrer spital ANAEROBIC CULTURE 2020-03-22 20:50:00 [facility] FUNGUS CULTURE 2020-03-22 20:50:00 Usha Obipopeye Ferrer spital AFB STAIN 2020-03-22 20:50:00 Usha Obipopeye Ferrer spital AEROBIC CULTURE 2020-03-22 20:50:00 Usha Obipopeye Ferrer spital GRAM STAIN 2020-03-22 20:50:00 sUha Obipopeye Ferrer spital SURGICAL PATHOLOGY 2020-03-22 20:30:00 [facility] Obi AFB CULTURE 2020-03-22 19:52:00 Usha Obipopeye Ferrer spital AFB CULTURE 2020-03-22 19:50:00 Usha Obipopeye Ferrer spital OR FL < 1 HOUR 2020-03-22 19:30:00 Usha Obipopeye Valladares spital [place] AN ELECTIVE 2020-03-22 19:25:28 Tejal Simpson H ospital ENDOTRACHEAL AIRWAY AMPUTATION, ABOVE KNEE 2020-03-22 18:47:00 Obi Kerr [facility] POC GLUCOSE 2020-03-22 15:07:00 Clint Kingtal Obi HC COMPLETE BLD COUNT 2020-03-22 12:45:00 Carlos Nelson [facility] W/AUTO DIFF TYPE AND SCREEN 2020-03-22 12:45:00 Carlos Nelson spital VANCOMYCIN LEVEL, RANDOM 2020-03-22 10:00:00 [facility] BASIC METABOLIC PANEL 2020-03-22 10:00:00 Clint King [facility] Obi ESTIMATED GFR 2020-03-22 10:00:00 Clint Kingtal Obi LIPID PANEL 2020-03-22 10:00:00 Bear Marieetal HEPATITIS B SURFACE 2020-03-21 14:22:00 [facility] ANTIGEN PROTHROMBIN TIME WITH INR 2020-03-21 12:15:00 [facility] PARTIAL THROMBOPLASTIN 2020-03-21 12:15:00 [facility] TIME (PTT) BASIC METABOLIC PANEL 2020-03-21 12:15:00 [facility] CBC WITH PLATELET AND 2020-03-21 12:15:00 [facility] DIFFERENTIAL VANCOMYCIN LEVEL, RANDOM 2020-03-21 12:15:00 [facility] ESTIMATED GFR 2020-03-21 12:15:00 [facility] HEMODIALYSIS 2020-03-21 06:05:17 Kumar Ayala H ospital VANCOMYCIN LEVEL, RANDOM 2020-03-20 20:54:00 [facility] BASIC METABOLIC PANEL 2020-03-20 11:30:00 Christine [facility] Obi ESTIMATED GFR 2020-03-20 11:30:00 Clint King chepetal Obi TTE COMPLETE, W CONTRAST, 2020-03-19 18:00:00 Mickey Martinez [facility] W DOPPLER ([id number]) HC COMPLETE BLD COUNT 2020-03-19 10:14:[facility] DIFF MRI KNEE WO CONTRAST 2020-03-19 09:38:00 Juan [facility] RIGHT MRI THIGH WO CONTRAST 2020-03-19 08:52:00 [facility] RIGHT MRI LOWER EXTREMITY WO 2020-03-19 08:07:00 [place] [facility] CONTRAST RIGHT BASIC METABOLIC PANEL 2020-03-19 07:01:00 [facility] ESTIMATED GFR 2020-03-19 07:01:00 [facility] LACTIC ACID LEVEL 2020-03-19 07:01:00 [facility] LACTIC ACID LEVEL, SEPSIS 2020-03-19 01:46:00 [facility] - NOW AND REPEAT 2X EVERY [place] 3 HOURS BLOOD CULTURE, AEROBIC & 2020-03-18 23:22:00 [facility] ANAEROBIC [place] COVID-19 QUALITATIVE 2020-03-18 23:22:00 [facility] RT-PCR [place] BLOOD CULTURE, AEROBIC & 2020-03-18 23:16:00 [facility] ANAEROBIC [place] HC COMPLETE BLD COUNT 2020-03-18 23:16:00 [facility] W/AUTO DIFF [place] PROTHROMBIN TIME WITH INR 2020-03-18 23:16:00 [facility] [place] PARTIAL THROMBOPLASTIN 2020-03-18 23:16:00 [facility] TIME (PTT) [place] TYPE AND SCREEN 2020-03-18 23:16:00 [facility] spital [place] COMPREHENSIVE METABOLIC 2020-03-18 23:16:00 [facility] PANEL [place] LACTIC ACID LEVEL, SEPSIS 2020-03-18 23:16:00 [facility] - NOW AND REPEAT 2X EVERY [place] 3 HOURS C-REACTIVE PROTEIN 2020-03-18 23:16:00 [facility] [place] SEDIMENTATION RATE 2020-03-18 23:16:00 [facility] [place] ESTIMATED GFR 2020-03-18 23:16:00 [facility] spital [place] URINE CULTURE 2020-03-18 23:10:00 [facility] spital [place] URINALYSIS SCREEN AND 2020-03-18 23:10:00 [facility] MICROSCOPY, WITH REFLEX [place] TO CULTURE XR KNEE 1 OR 2 VW RIGHT 2020-03-18 23:03:39 [facility] [place] XR TIBIA FIBULA 2 VW 2020-03-18 23:03:04 [facility] RIGHT [place] URINALYSIS 2019-11-11 23:48:00 Wanda Henson [facility] XR CHEST 1 VW 2019-11-11 23:02:37 N[facility] MAGNESIUM 2019-11-11 22:43:00 Nelia [facility] COMP. METABOLIC PANEL 2019-11-11 22:43:00 Wanda Henson [facility] ([id number]) [facility] CBC WITH DIFF 2019-11-11 22:43:00 [facility] TROPONIN I 2019-11-11 22:43:00 [facility] EKG-12 LEAD 2019-11-11 22:40:13 [facility] Plan of Care Planned Activity Planned Date Details Comments Source Future Scheduled ELECTROCARDIOGRAM [facility] Test COMPLETE [code = 85603] of M edicine Future Scheduled COLON CANCER SCREENING: [facility] Test COLONOSCOPY [code = of Medic ine COLON CANCER SCREENING: COLONOSCOPY] Future Scheduled TETANUS SHOT (ADULT) [facility] Test [code = TETANUS SHOT of Medi cine (ADULT)] Future Scheduled BMI FOLLOW UP PLAN [code [facility] Test = BMI FOLLOW UP PLAN] of Med icine Future Scheduled HEPATITIS C SCREENING [facility] Test [code = HEPATITIS C of Medic ine SCREENING] Future Scheduled ZOSTER VACCINE (1 of 2) [facility] Test [code = ZOSTER VACCINE of Me dicine (1 of 2)] Future Scheduled FALL SCREEN [code = FALL [facility] Test SCREEN] of Medicine Future Scheduled PNEUMOVAX >=65 (PPSV23) [facility] Test [code = PNEUMOVAX >=65 of Me dicine (PPSV23)] Future Scheduled MEDICARE AWV (Initial) [facility] Test [code = MEDICARE AWV of Medi cine (Initial)] Future Scheduled FLU VACCINE > 6 MONTHS [facility] Test [code = FLU VACCINE > 6 of M edicine MONTHS] Future Scheduled 65+ PNEUMOCOCCAL VACCINE Taoism Test (1 of 4 - PCV13) [code = Hos pital 65+ PNEUMOCOCCAL VACCINE (1 of 4 - PCV13)] Future Scheduled DIABETES: RETINAL EYE Me thodist Test EXAM [code = DIABETES: Hospi sean RETINAL EYE EXAM] Future Scheduled DIABETIC FOOT EXAM [code Taoism Test = DIABETIC FOOT EXAM] Hospit al Future Scheduled COVID-19 VACCINE (1) Met hodist Test [code = COVID-19 VACCINE Hos pital (1)] Future Scheduled COLONOSCOPY SCREENING Me thodist Test [code = COLONOSCOPY Hospital SCREENING] Future Scheduled SHINGLES VACCINES (#1) M ethodist Test [code = SHINGLES Hospital VACCINES (#1)] Future Scheduled INFLUENZA VACCINE [code Taoism Test = INFLUENZA VACCINE] Hospita l Future Scheduled EVENT MONITOR [code = 1 Occurrences [facility] Test 99520] starting of Medicine 11/19/2019 until 02/17/2020 Encounters Start End Encounter Admission Attending Care Care Encounter Source Date/Time Date/Time Type Type Clinicians Facility Department ID 2020 Outpatient Provider, [facility] [id number] [facility] 10:29:00 Undefined 34 [facility] 2020 Inpatient KENDRA Curtis [facility] [id number] [facility] 10:29:00 Sekou 19 [facility] 2020 Inpatient KENDRA Espino [facility] [id number] [facility] 10:28:59 Fausto 61 [facility] 2020-06-03 Inpatient Gibberman, HCACL HCACL [id number] [facility] 07:15:00 Sekou [id number] [facility] 2020-05-19 Inpatient SYED Curtis, HCACL REHA [id number] [facility] 18:00:00 Sekou [id number] [facility] 2020-05-13 Inpatient HCACL DIGNA [id number] [facility] 01:15:00 [id number] [facility] 2020-12-07 2020-12-07 Outpatient [facility] [id number] [place] 00:00:00 00:00:00 HEAVENLY [address] 2020-10-01 2020-10-06 Inpatient [facility] 012 [id number] [place] 00:00:00 00:00:00 SANDRA [address] 2020-05-12 2020-05-12 Outpatient TORI, HCAPM RADI [id number] [facility] 21:45:00 21:45:00 ELISHA [id number] [facility] 2020-04-27 2020-04-27 Telemedici Obi Kerr 1.2.840.1 [id number] Methodi 15:36:30 16:10:42 [address] 3.430.2.7 Hospit a .3.486338 l .8 2020-04-27 2020-04-27 Travel 1.2.840.1 1.2.820.231 0500 [id number] Methodi 00:00:00 00:00:[address] 3.430.2.7 0.2.7.3.698 Ho spita .3.681954 084.8 l .8 2020-04-26 2020-04-26 Travel 1.2.840.1 1.2.189.858 6500 [id number] Methodi 00:00:00 00:00:[address] 3.430.2.7 0.2.7.3.698 Ho spita .3.404872 084.8 l .8 2020-04-13 2020-04-18 [facility] 1.2.840.1 [id number] Methodi 11:45:02 00:23:05 Visit Archie 54322.1.[address] 3.430.2.7 Hospit a .3.594601 l .8 2020-04-13 2020-04-13 Travel 1.2.840.1 1.2.943.703 7600 035992 Methodi 00:00:00 00:00:[address] 3.430.2.7 0.2.7.3.698 Ho spita .3.788446 084.8 l .8 2020-04-05 2020-04-05 Abstract Sugar 1.2.840.1 [id number] Methodi 00:00:00 00:00:[address] 3.430.2.7 Hospit a .3.418569 l .8 2020-04-04 2020-04-04 [facility] 1.2.840.1 [id number] 897 [id number] Methodi 13:34:38 14:35:21 Visit Archie 75165.1.[address] 3.430.2.7 Hospit a .3.422256 l .8 2020-04-04 2020-04-04 Travel 1.2.840.1 1.2.909.965 1250 [id number] Methodi 00:00:00 00:00:[address] 3.430.2.7 0.2.7.3.698 Ho spita .3.606620 084.8 l .8 2020-04-01 2020-04-01 Orders Sugar 1.2.840.1 [id number] 2099 896117 Methodi 00:00:00 00:00:00 Only Emilee [address]1534.1.[address] 3.430.2.7 Hospit a .3.994041 l .8 2020-04-01 2020-04-01 Travel 1.2.840.1 1.2.900.019 9069 613163 Methodi 00:00:00 00:00:[address] 3.430.2.7 0.2.7.3.698 Ho spita .3.044541 084.8 l .8 2020-03-18 2020-03-26 [facility] Suzanne Arvizunt 1.2.840 .1 [id number] Methodi 15:51:00 11:35:00 Encounter Clint King 13818.1.[address] Dickson, Umar 3.430.2.7 Hos imelda .3.456656 l .8 2020-03-22 2020-03-22 Anesthesia Ame Liu 1.2.840.1 [id number] Methodi 12:47:00 16:31:00 Event Clint Graham 62568.1.[address] 3.430.2.7 Hospit a .3.471939 l .8 2020-03-22 2020-03-22 Surgery Obi Kerr 1.2.840.1 [id number] 940 [id number] Methodi 12:53:00 14:38:[address] 3.430.2.7 Hospit a .3.665508 l .8 2019-11-19 2019-11-19 Office CHELSEA York 1.2.840.[id number] [place] [address] 10:50:53 15:23:52 Visit Oswald S AMBULATOR 350.1.13.21 College Y 0.2.7.2.686 of [id number] [facility] 300 e 2019-11-19 2019-11-19 Office CHELSEA York 1.2.840.114 [id number] 10:50:53 15:23:52 Visit Oswald S AMBULATOR 350.1.13.21 Y 0.2.7.2.686 [id number] 300 2019-11-11 2019-11-11 Emergency Wanda Henson [facility] 1.2.840.114 78 [id number] 17:16:00 22:21:00 Lisa Pineda 350.1.13.10 [place] 4.2.7.2.686 [place] [id number] [facility] 2019-11-11 2019-11-11 Emergency Wanda Henson [facility] 1.2.840.114 78 [id number] Univers 17:16:00 22:21:00 Lisa Pineda 350.1.13.10 i [address] of [place] 4.2.7.2.686 [facility] [id number] [place] [address] Branch 2019-11-11 2019-11-11 Emergency X Wanda HENSON [facility] ERT [id number] Univers 17:16:00 17:16:00 ity of [facility] 2019-11-03 2019-11-03 Telephone Melany, 1.2.840.1 [id number] 2100 [id number] Methodi 09:01:34 09:25:16 Consult Liss Baxter 28514.1.[address] 3.430.2.7 Hospit a .3.151320 l .8 2014-02-18 2014-02-18 Office [facility] [id number] Memoria 00:00:00 00:00:00 Visit artie Marquez [id number] [facility] 2014-02-18 2014-02-18 Lab Report [facility] [id number] [id number] Memoria 00:00:00 00:00:00 artie Marquez [id number] [facility] 2013-01-23 2013-01-23 Lab Report [facility] 1702 [id number] Memoria 00:00:00 00:00:00 artie Marquez [id number] [facility] Results Test Description Test Time Test Comments Results Result [facility] e Comments - XR CHEST 1 V 2020-05-31 14:08:00 [facility] : 1945 Sex: M FAX: Sekou Jeffery [phone] [place]: St: ADM Name: DARIEN HUYNH [facility] : 1945 Age/S: 74/M [address] [place] [address] Blvd Unit #: [id number] Loc: [address] [address] Phys: Sekou Curtis MD Acct: [id number] Dis Date: Status: ADM IN PHONE #: [phone] Exam Date: 05/31/20201405 FAX #: [phone] Reason: HD protocol, need to make sure no TB EXAMS: CPT CODE: [id number] XR CHEST 1 V 18206 EXAM: Single view AP chest. EXAM DATE: [...] Yesika Kumar M.D. CC: Sekou Curtis Technologist: RT Marques(Artie) Trnjanice Date/Time/By: 05/31/2020 (1407) : By: Enedelia Orig Print D/T: S: 05/31/2020 (5762) PAGE 1 Signed Report - XR CHEST 1 V 2020-05-31 14:08:00 [facility] 1945 Sex: M FAX: Sekou Jeffery [phone] [place]: St: DIS Name: DARIEN HUYNH [facility] [place] : 1945 Age/S: 74/M [address] [place] [address] Blvd Unit #: [id number] Loc: [place] [address] Phys: Sekou Curtis MD Acct: [id number] Dis Date: Status: DIS IN PHONE #: [phone] Exam Date: 05/31/20201405 FAX #: [phone] Reason: HD protocol, need to make sure no TB EXAMS: CPT CODE: [id number] XR CHEST 1 V 25188 EXAM: Single view AP chest. EXAM DATE: [...] Yesika Kumar M.D. CC: Sekou Curtis Technologist: RT Marques(Artie) Trnscrd Date/Time/By: 05/31/2020 (1268) : By: Enedelia Orig Print D/T: S: 05/31/2020 (6795) PAGE 1 Signed Report BASIC METABOLIC PANEL [...] code = CA) 8.5 mg/dL 8.0-10.5 N [id number] 05:15:00 Test Item Value Reference Range Interpretation Comments ALBUMIN (test code = ALB) 3.10 g/dL 3.4-5.0 L [id number] 05:15:00 Test Item Value Reference Range Interpretation Comments PREALBUMIN (test code = PREALB) 27.0 mg/dL 16.0-40.0 N [id number] 23:17:00 Test Item Value Reference Range Interpretation Comments GLUBED (test code = 95 MG/DL 70-110 N Performe d by certified GLUBED) pattern data operator at [facility] BASIC METABOLIC [id number] 09:36:00 Test Item Value Reference Range Interpretation [...] code = 8.8 mg/dL 8.0-10.5 N Previou víctor reported CA) result: 8.2 mg/dLEdited by: [facility] on 05/29/20:849985 / 0935: CA previ ously reported as: 8. 2 mg/dL BASIC METABOLIC [id number] 07:53:00 Test Item Value Reference Range Interpretation [...] 8.2 mg/dL 8.0-10.5 N CA) BASIC METABOLIC [id number] 04:28:00 Test Item Value Reference Range Interpretation [...] 9.3 mg/dL 8.0-10.5 N CA) CBC W/AUTO [id number] 08:31:00 Test Item Value Reference Range Interpretation [...] (test code NO = MDIFF) BASIC METABOLIC [id number] 07:59:00 Test Item Value Reference Range Interpretation [...] CA) - USG NDL PLACEMENT (Bxg/Asp)2020-05-24 15:12:00 [facility] AMINA D[facility] : 1945 Sex: M Name: [facility] 1945 Age/S: 74 / M [address] [place] [address] Unit #: [id number] Loc: [place] [address] Phys: Albaro Sheikhnie NPAcct: [id number] Dis Date: Status: ADM IN PHONE #:[phone] Exam Date: 05/24/2020 1434 FAX #: [phone] Reason: right aka fluid collection EXAMS: CPT CODE: [id number] USG NDL PLACEMENT (Bxg/Asp) 45878 PROCEDURE: Ultrasound-guided right knee stump fluid collection. [...] signed by: Paloma Arvizu D.O. CC: Sekou Sheikh NP Technologist: Rosemarie Ayon Trnscb Date/Time: 05/24/2020 (151) [email or web address] Orig Print D/T: S: 05/24/2020 (1515) Probe: PAGE 1 Signed Report- USG NDL PLACEMENT (Bxg/Asp)2020-05-24 15:12:00 [facility] 1945 Sex: M Name: DARIEN HUYNH [facility] Cindy Smith : 1945 Age/S: 74 / M [address] [place] [address] Bl Unit #: [id number] Loc: [place] [address] Phys: Jonathan Sheikh NPAcct: [id number] Dis Date: Status: DIS IN PHONE #:[phone] Exam Date: 05/24/2020 1434 FAX #: [phone] Reason: right aka fluid collection EXAMS: CPT CODE: [id number] USG NDL PLACEMENT (Bxg/Asp) 49607 PROCEDURE: Ultrasound-guided right knee stump fluid collection. [...] NP Technologist: Rosemarie Ayon Trnscb Date/Time: 05/24/2020 (1511) [email or web address] Orig Print D/T: S: 05/24/2020 (917) Probe: PAGE 1 Signed Report- CT LOWER EXTRM W/O C [id number] 18:02:00 [facility] : 1945 Sex: M Name: DARIEN HUYNH [facility] : 1945 Age/S: 74 / M [address] [place] [address] Bl Unit #: [id number] Loc: [place] [address] Phys: Jonathan Shekih NPAcct: [id number] Dis Date: Status: ADM IN PHONE #:[phone] Exam Date: 05/23/2020 1728 FAX #: [phone] Reason: right bka, r/o fluid collection EXAMS: CPT CODE: [id number] CT LOWER [place]TRM W/[place] [address] [place] right femur without contrast. INDICATION: Right [...] iterative reconstruction techniques. DLP: 566 mGy-cm FINDINGS: Bzvdj-vdl-[id number] amputation has been performed. A permeative pattern [...] Mena M.D. CC: Sekou Curtis; Jonathan Sheikh NP Technologist:RT Lindsay(Artie)(CT) CTDI: DLP: Trnscb Date/Time: 05/23/2020 (1801) CarlitoSG9 Orig Print D/T: S: 05/23/2020 (1805) PAGE 1 Signed Report- CT LOWER EXTRM W/O C [id number] 18:02:00 [facility] 1945 Sex: M Name: DARIEN HUYNH [facility] : 1945 Age/S: 74 / M [address] [place] [address] Unit #: [id number] Loc: [place] [address] Phys: Jonathan Sheikh NPAcct: [id number] Dis Date: Status: DIS IN PHONE #:[phone] Exam Date: 05/23/2020 1728 FAX #: [phone] Reason: right bka, r/o fluid collection EXAMS: CPT CODE: [id number] [place] L[place]TRM W/[place] [address] [place] right femur without contrast. INDICATION: Right [...] iterative reconstruction techniques. DLP: 566 mGy-cm FINDINGS: Oaumu-pqa-quov amputation has been performed. A permeative pattern [...] Mena M.D. CC: Sekou Curtis; Jonathan Sheikh NP Technologist:David Aguirre, RT(R)(CT) CTDI: DLP: Trnscb Date/Time: 05/23/2020 (1801) CarlitoSG9 Orig Print D/T: S: 05/23/2020 (7054) PAGE 1 Signed ReportBASIC METABOLIC [id number] 13:38:00 Test Item Value Reference Range Interpretation [...] code = 9.6 mg/dL 8.0-10.5 N CA) [id number] 13:38:00 Test Item Value Reference Range Interpretation Comments PHOSPHOROUS (test code = PHOS) 3.9 MG/DL 2.5-4.9 N [id number] 13:36:00 Test Item Value Reference Range Interpretation Comments ALBUMIN (test code = ALB) 3.20 g/dL 3.4-5.0 L [id number] 13:36:00 Test Item Value Reference Range Interpretation Comments PREALBUMIN (test code = PREALB) 14.3 mg/dL 16.0-40.0 L CBC W/AUTO [id number] 13:15:00 Test Item Value Reference Range Interpretation [...] (test code NO = MDIFF) SED RATE [id number] 08:19:00 Test Item Value Reference Range Interpretation Comments SED RATE LAURO (test code = 114 mm/hr 0-15 H SEDW) [id number] 08:09:00 Test Item Value Reference Range Interpretation Comments PREALBUMIN (test code = PREALB) 13.1 mg/dL 16.0-40.0 L C REACTIVE [id number] 08:08:00 Test Item Value Reference Range Interpretation Comments C REACTIVE PROTEIN (test code = 192.0 mg/L <10.0 H CRP) CBC W/AUTO [id number] 07:57:00 Test Item Value Reference Range Interpretation [...] MDIFF) - XR HIP W/PEL UNI 2+V [id number] 18:35:00 [facility] 1945 Sex: M FAX: Sekou Jeffery [phone] [place]: St: ADM FAX: Dusty Smiley [phone] Name: AMINADARIEN [facility] : 1945 Age/S: 74/M [address] [place], [place] [address]vd Unit #: [id number] [place]: [place] [address] Phys: Dusty Smiley NP Acct: [id number] Dis Date: Status: ADM IN PHONE #: [phone] Exam Date: 05/21/2020 173 FAX #: [phone] Reason: left hip pain EXAMS:CPT CODE: [id number] XR HIP W/PEL UNI 2+[place] [address] 2+ RADIOGRAPHIC VIEWS LEFT HIP INDICATION: left [...] Sekou Curtis; Dusty Smiley NP Technologist: RT Jesus(Artie) Trnscrd Date/Time/By: 05/21/2020 (1834) : By: Michael.[email or web address] Orig Print D/T: S: 05/21/2020 (1837) PAGE 1 Signed Report- XR HIP W/PEL UNI 2+V [id number] 18:35:00 [facility] : 1945 Sex: M FAX: Y Juan AntonioDaniel annadak[place] Vigil [phone] [place]: St: DIS FAX: Dusty Smiley [phone] Name: DARIEN HUYNH [facility] : 1945 Age/S: 74/M [address] [place] [address] Unit #: [id number] Loc: [place] [address] Phys: Dusty Smiley NP Acct: [id number] Dis Date: Status: DIS IN PHONE #: [phone] Exam Date: 05/21/2020 173 FAX #: [phone] Reason: left hip pain EXAMS:CPT CODE: [id number] XR HIP W/PEL UNI 2+[place] [address] 2+ RADIOGRAPHIC VIEWS LEFT HIP INDICATION: left [...] Sekou Curtis; Dusty Smiley NP Technologist: RT Jesus(Artie) Trnscrd Date/Time/By: 05/21/2020 (1834) : By: CarlitoJB33 Orig Print D/T: S: 05/21/2020 (1837) PAGE 1 Signed ReportCBC W/AUTO DIFF 2020-05-21 07:47:00 Test Item Value [...] (test code NO = MDIFF) BASIC METABOLIC [id number] 07:40:00 Test Item Value Reference Range Interpretation [...] 9.1 mg/dL 8.0-10.5 N CA) COMPREHENSIVE METABOLIC [id number] 06:03:00 Test Item Value Reference Range Interpretation [...] TOTAL (test code = ALKP) CBC W/AUTO [id number] 05:49:00 Test Item Value Reference Range Interpretation [...] (test code NO = MDIFF) BASIC METABOLIC [id number] 08:43:00 Test Item Value Reference Range Interpretation [...] code = 9.0 mg/dL 8.0-10.5 N CA) [id number] 08:43:00 Test Item Value Reference Range Interpretation Comments PHOSPHOROUS (test code = PHOS) 4.7 MG/DL 2.5-4.9 N CBC W/AUTO [id number] 08:29:00 Test Item Value Reference Range Interpretation [...] (test code NO = MDIFF) BASIC METABOLIC [id number] 07:42:00 Test Item Value Reference Range Interpretation [...] 9.5 mg/dL 8.0-10.5 N CA) BASIC METABOLIC [id number] 09:55:00 Test Item Value Reference Range Interpretation [...] code = 8.7 mg/dL 8.0-10.5 N CA) [id number] 09:55:00 Test Item Value Reference Range Interpretation Comments PHOSPHOROUS (test code = PHOS) 5.2 MG/DL 2.5-4.9 H [id number] 09:55:00 Test Item Value Reference Range Interpretation Comments MAGNESIUM (test code = MAG) 1.89 mg/dL 1.80-2.40 N CBC W/AUTO [id number] 09:28:00 Test Item Value Reference Range Interpretation [...] REQUIRED (test code = MDIFF) CBC W/AUTO [id number] 09:28:00 Test Item Value Reference Range Interpretation [...] (test code NO = MDIFF) ACUTE HEPATITIS [id number] 13:08:00 Test Item Value Reference Range Interpretation [...] COMMENTS: At start of hemodialysisAB HEPATITIS B [id number] 13:08:00 Test Item Value Reference Range Interpretation Comments AB HEPATITIS B 22.1 mIU/mL See_Comment Status of I mmunity SURFACE (test code = HBSAB) Anti-HBs Level --- I nconsis tent with Immun ity 0 .0 - 9.9Consistent w ith Immunity >9.9Performed A t: HD [facility] [address] [id number] jaswinder Peralta MD Ph:[phone] [Automated mess age] The system [employer] generated this result transmitted ref erence range: Immunity >9.9. The reference r za was not used to interpret this result as normal/abnor mal. COMMENTS: At start of hemodialysisACUTE HEPATITIS [id number] 10:00:00 Test Item Value Reference Range Interpretation [...] COMMENTS: At start of hemodialysisAB HEPATITIS B [id number] 10:00:00 Test Item Value Reference Range Interpretation Comments AB HEPATITIS B SURFACE (test code = HBSAB) COMMENTS: At start of hemodialysisBASIC METABOLIC [id number] 09:23:00 Test Item Value Reference Range Interpretation [...] 8.5 mg/dL 8.0-10.5 N CA) CBC W/AUTO [id number] 09:16:00 Test Item Value Reference Range Interpretation [...] (test code NO = MDIFF) RENAL FUNCTION [id number] 06:58:00 Test Item Value Reference Range Interpretation [...] code = 3.0 MG/DL 2.5-4.9 N PHOS) [id number] 06:58:00 Test Item Value Reference Range Interpretation Comments MAGNESIUM (test code = MAG) 1.81 mg/dL 1.80-2.40 N CBC W/AUTO [id number] 06:49:00 Test Item Value Reference Range Interpretation [...] (test code NO = MDIFF) CBC W/AUTO [id number] 06:45:00 Test Item Value Reference Range Interpretation [...] code = MDIFF) - CT HEAD/BRAIN W/O [id number] 04:29:00 [facility] : 1945 Sex: M Name: DARIEN HUYNH [facility] Cindy Smith : 1945 Age/S: 74 / M [address] [place] [address] Blvd Unit #: [id number] Loc: [place] [address] Phys: Fausto Espino [facility] [id number] Dis Date: Status: ADM IN PHONE #:[phone] Exam Date: 05/13/2020 0414 FAX #: [phone] Reason: TRAUMA EXAMS: CPT CODE: [id number] CT HEAD/BRAIN W/O CONT 45297 STUDY: - CT HEAD/BRAIN W/O CONT 05/13/2020 5:00 AM Ordering Physician: Fausto Espino MD Patient Name: DARIEN HUYNH MR: [id number] : 1945; Age: 74 years y/o Male [...] 1 Signed Report (CONTINUED) Name: DARIEN HUYNH [facility] [place] : 1945 Age/S: 74 / M [address] [place] [address] Unit #: [id number] Loc: [place] [address] Phys: Fausto Espino MD Acct: [id number] Dis Date: Status: ADM IN PHONE #: [phone] Exam Date: FAX #: [phone] Reason: TRAUMA EXAMS: CPT CODE: [id number] CT HEAD/BRAINW/O CONT 46531 <Continued> MASTOIDS: Clear. ORBITS: The globes are [...] Fausto Espino MD; Bennett Farnsworth MD Technologist:RT Renetta(Artie)(CT); Edgar CTDI: DLP: Trnscb Date/Time: 05/13/2020 (428) JavyR.TP6 Orig Print D/T: S: 05/13/2020 (0432) PAGE 2 Signed Report- CT HEAD/BRAIN W/O [id number] 04:29:00 [facility] : 1945 Sex: M Name: DARIEN HUYNH : 1945 Age/S: 74 / M [address] [place] [address] Blvd Unit #: [id number] Loc: [place] [address] Phys: [facility] [id number] Dis Date: Status: DIS IN PHONE #:[phone] Exam Date: 05/13/2020 0414 FAX #: [phone] Reason: TRAUMA EXAMS: CPT CODE: [id number] CT HEAD/BRAIN W/O CONT 44232 STUDY: - CT HEAD/BRAIN W/O CONT 05/13/2020 5:00 AM Ordering Physician: Fausto Espino MD Patient Name: DARIEN HUYNH MR: [id number] : 1945; Age: 74 years y/o Male [...] HUYNH : 1945 Age/S: 74 / M [address] [place] [address] Blvd Unit #: [id number] Loc: [place] [address] Phys: Fausto Espino MD Acct: [id number] Dis Date: Status: DIS IN PHONE #: [phone] Exam Date: FAX #: [phone] Reason: TRAUMA EXAMS: CPT CODE: [id number] CT HEAD/BRAINW/O CONT 68419 <Continued> MASTOIDS: Clear. ORBITS: The globes are [...] (428) t.SDR.TP6 Orig Print D/T: S: 05/13/2020 (0433) PAGE 2 Signed ReportCOVID 19 Asymptomatic IH [id number] 03:09:00 Test Item Value Reference Range Interpretation [...] high or waivedcomplexit y tests. BASIC METABOLIC [id number] 02:14:00 Test Item Value Reference Range Interpretation [...] 8.5 mg/dL 8.0-10.5 N CA) HEPATIC FUNCTION [id number] 02:14:00 Test Item Value Reference Range Interpretation [...] 112 IUnit/L 20-125 N code = ALKP) [id number] 02:14:00 Test Item Value Reference Range Interpretation Comments LIPASE (test code = LIP) 185 U/L 13-57 H [id number] 02:14:00 Test Item Value Reference Range Interpretation [...] or Legal orEmployment ev aluation purposes. PROTHROMBIN [id number] 02:11:00 Test Item Value Reference Range Interpretation [...] o prevent recurre nt infarct). THROMBOPLASTIN TIME [id number] 02:11:00 Test Item Value Reference Range Interpretation Comments THROMBOPLASTIN TIME 31.8 Seconds 25.0-39.5 N Ther apeutic PARTIAL (test code = Range: 50.4 - 88.3 PTT) Seconds Effective 05/27/2018 PROTHROMBIN [id number] 02:10:00 Test Item Value Reference Range Interpretation [...] o prevent recurre nt infarct). THROMBOPLASTIN TIME [id number] 02:10:00 Test Item Value Reference Range Interpretation Comments THROMBOPLASTIN TIME PARTIAL (test Seconds 25.0-39.5 code = PTT) CBC W/AUTO [id number] 01:59:00 Test Item Value Reference Range Interpretation [...] NO = MDIFF) - CT HEAD/BRAIN W/O [id number] 23:15:00 [facility] : 1945 Sex: M Name: DARIEN HUYNH [facility] : 1945 Age/S: 74 / M [address] Unit #: [id number] Loc: [place] [address] Phys: Undefined Provider Acct: [id number] Dis Date: Status: REG REF PHONE #: [phone] Exam Date: 05/12/2020 2218 FAX #: Reason: s/p fall Report Has Been Amended EXAMS: CPT: [id number] CT HEAD/BRAIN W/O CONT 63435 Addendum - 05/12/2020 SIGNED 05/12/2020 ADDENDUM: [id number] CT/CTHDBRWO Findings were notified to general house worker Huyen at 11:15 PM on 05/12/2020. at 2315 Reported and signed by: Kaela Lindsey M.D. Transcribed: 05/12/2020 (4612) t.SDR.TH15 Report EXAM: - CT HEAD/BRAIN W/O [...] HUYNH : 1945 Age/S: 74 / M [address] Unit #: [id number] Loc: [place] Phys: Undefined Provider Acct: [id number] Dis Date: Status: REG REF PHONE #: [phone] Exam Date: 05/12/20204 FAX #: Reason: s/p fall Report Has Been Amended EXAMS: CPT: [id number] CT HEAD/BRAIN W/O CONT 55677 <Continued> frontoparietal lobe without midline shift or [...] PAGE 2 Signed Report- CT HEAD/BRAIN W/O [id number] 23:15:00 [facility] : 1945 Sex: M Name: DARIEN HUYNH [facility] : 1945 Age/S: 74 / M [address] Unit #: [id number] Loc: [place] [address] Phys: Undefined Provider Acct: [id number] Dis Date: Status: REG REF PHONE #: [phone] Exam Date: 05/12/20202213 FAX #: Reason: s/p fall Report Has Been Amended EXAMS: CPT: [id number] CT HEAD/BRAIN W/O CONT 34235 Addendum - 05/12/2020 SIGNED 05/12/2020 ADDENDUM: [id number] CT/CTHDBRWO Findings were notified to general house worker Huyen at 11:15 PM on 05/12/2020. at 2315 Reported and signed by: Kaela Lindsey M.D. Transcribed: 05/12/2020 (9485) [email or web address] Report EXAM: - CT HEAD/BRAIN W/O CONT [...] HUYNH : 1945 Age/S: 74 / M [address] Unit #: [id number] Loc: [place] Phys: Undefined Provider Acct: [id number] Dis Date: Status: REG REF PHONE #: [phone] Exam Date: 05/12/20202213 FAX #: Reason: s/p fall Report Has Been Amended EXAMS: CPT: [id number] CT HEAD/BRAIN W/O CONT 24305 <Continued> frontoparietal lobe without midline shift or [...] ... CTDI: DLP: Trnscb Date/Time: 05/12/2020 (2250) t.RYANR.TH15 Orig Print D/T: S: 05/12/2020 (2254) PAGE 2 Signed Report- CT HEAD/BRAIN W/O [id number] 22:51:00 [facility] : 1945 Sex: M Name: DARIEN HUYNH [facility] : 1945 Age/S: 74 / M [address] Unit #: [id number] Loc: [place] [address] Phys: Undefined Provider Acct: [id number] Dis Date: Status: REG REF PHONE #: [phone] Exam Date: 05/12/20209 FAX #: Reason: s/p fall EXAMS: CPT: [id number] CT HEAD/BRAIN W/O CONT 12625 EXAM: -CT HEAD/BRAIN W/O CONT LOCATION: H61 [...] 1 Signed Report (CONTINUED) Name: DARIEN HUYNH [place] : 1945 Age/S: 74 / M [address] Unit #: [id number] Loc: [place] [address] Phys: Undefined Provider Acct: [id number] Dis Date: Status: REG REF PHONE #: [phone] Exam Date: 05/12/2020 3585 FAX #: Reason: s/p fall EXAMS: CPT: [id number] CT HEAD/BRAIN W/O CONT 45356 <Continued> Electronically Signedby Armida Lindsey on 05/12/2020 at 2251 Reported and signed by: Kaela Lindsey M.D. CC: Technologist:Liss Jordan RT(R)(CT); ... CTDI: DLP: Trnscb Date/Time: 05/12/2020 (2250) t.SDR.TH15 Orig Print D/T: S: 05/12/2020 (2255) PAGE 2 Signed Report- CT C-SPINE W/O [id number] 22:40:00 [facility] : 1945 Sex: M Name: DARIEN HUYNH [facility] : 1945 Age/S: 74 / M [address] Unit #: [id number] Loc: [place] [address] Phys: Undefined Provider Acct: [id number] Dis Date: Status: REG REF PHONE #: [phone] Exam Date: 05/12/20202213 FAX #: Reason: s/p fall EXAMS: CPT: [id number] CT C-SPINE W/O CONT 80704 EXAM: -CT C-SPINE W/O CONT LOCATION: 1 CLINICAL HISTORY/INDICATION: Fall withpain. COMPARISON: None TECHNIQUE: [...] 1 Signed Report (CONTINUED) Name: DARIEN HUYNH [facility] [place] : 1945 Age/S: 74 / M [address] Unit #: [id number] Loc: [place] [address] Phys: Undefined Provider Acct: [id number] Dis Date: Status: REG REF PHONE #: [phone] Exam Date: 05/12/20202213 FAX #: Reason: s/p fall EXAMS: CPT: [id number] CT C- SPINE W/O CONT 38779 <Continued> spinal canal stenosis. C3-C4: Diffuse disc [...] (2239) t.SDR.TH15 Orig Print D/T: S: 05/12/2020 (7144) PAGE 2 Signed Report- CT C-SPINE W/O [id number] 22:40:00 [facility] : 1945 Sex: M Name: DARIEN HUYNH [facility] : 1945 Age/S: 74 / M [address] [facility] [address] Unit #: [id number] Loc: [place] [address] Phys: Undefined Provider Acct: [id number] Dis Date: Status: REG REF PHONE #: [phone] Exam Date: 05/12/2020 FAX #: Reason: s/p fall EXAMS: CPT: [id number] CT C-SPINE W/O CONT 27614 EXAM: -CT C-SPINE W/O CONT LOCATION: H61 [...] 1 Signed Report (CONTINUED) Name: DARIEN HUYNH [facility] : 1945 Age/S: 74 / M [address] Unit #: [id number] Loc: [place] [address] Phys: Undefined Provider Acct: [id number] Dis Date: Status: REG REF PHONE #: [phone] Exam Date: 05/12/20202213 FAX #: Reason: s/p fall EXAMS: CPT: [id number] CT C- SPINE W/O CONT 86862 <Continued> spinal canal stenosis. C3-C4: Diffuse disc [...] ... CTDI: DLP: Trnscb Date/Time: 05/12/2020 (2239) t.RYANR.TH15 Orig Print D/T: S: 05/12/2020 (7076) PAGE 2 Signed ReportAFB [id number] 05:13:59 Test Item Value Reference Range Interpretation Comments AFB culture isolate No growth after 6 (test code = 543-9) weeks of incubation. [facility] pjeutur9080-86-81 06:15:49 Test Item Value Reference Range Interpretation Comments Fungus culture isolate No growth after 4 (test code = 1441) weeks of incubation. [facility] Hospital[facility] FL < 1 [id number] 21:39:42EXAMINATION: OR FL < 1 HOUR C-arm fluoroscopy was requested in OR. OPC19 OR ROOM: 10 PROCEDURE: RIGHT ABOVE THE KNEE AMPUTATION START TIME: 1245 END TIME: 1330 FLUORO TIME: 1second DOSAGE: 0.134mGy TECH: jm IMPRESSION: Intraoperative fluoroscopic images. Radiologist was not [...] be issued by the physician performing the procedure.[id number]_LT03[facility] Anaerobic [id number] 14:47:42 Test Item Value Reference Range Interpretation Comments Anaerobic culture No anaerobic organisms isolate (test code = isolated. 552) [facility] CenterAF[facility] [id number] 07:48:01 Test Item Value Reference Range Interpretation Comments AFB stain (test code = No acid fast bacilli 676-7) (AFB) seen. [facility] CenterA[facility] [id number] 07:48:01 Test Item Value Reference Range Interpretation Comments Aerobic culture isolate No growth after 3 (test code = 498) days. [facility] CenterFungus zjrat3757-74-57 07:48:01 Test Item Value Reference Range Interpretation Comments Fungus smear (test code = No fungi observed. 1443) [facility] CenterGram [id number] 07:48:01Gram stain isolateFew WBC'sNo organisms seen Comment: Specimen InformationSpecimen Source: TissueSpecimen Site: Femur: Right femoral canal tissue [facility] [id number] 21:19:54 Test Item Value Reference Range Interpretation Comments Case number (test code = [id number]) Surgical pathology See link below for report (test code = PDF Lab Report 2255) Result status (test code This is Final Report = [id number]) for [id number] [facility] carotid fjeeth6632-01-54 00:39:00 [facility]ascular Ultrasound Laboratory Carotid Artery Duplex Report [address] [place] [address] For production quality analyst purposes, the categorization of the degree of the stenosis of this exam is based on criteria described in the IAC carotid stenosis grading white paper( www.intersocietal.org/Vascular) and Shagufta Andrews., Art ArmendarizB., et al. Carotid artery stenosis: maya-scale and Doppler US diagnosis--Society of Radiologists in Ultrasound Consensus Conference. Radiology. 2003 Nov; 229(2):340-6. Pat.Name: DARIEN HUYNH.ID: [id number] .Date: 03/23/2020 Refer.MD: BEAR MARIEE MD Exam Time: 11:25:00 AM Study Type:Carotid Height: 68in Weight: 186lb BSA: 1.98 m2 Age: 9 1945,74Y Sex: MALE Sonogrphr: NOEMI Chapman Pat. Stat.:Inpatient Room: [address] Vol: BE, CPT - 4: 79939 Echo Event ID:[id number] Order ID: [id number] Reason for Study:Cervical bruit, no prior carotid [...] EDV 23 cm/sLeft ICA Mid ICA Mid XFX957 cm/s Left ICA Prox ICA Prox PSV [...] Ultrasound Laboratory Carotid Artery Duplex Report [address] [place] [address] For production quality analyst purposes, the categorization of the degree of the stenosis of this exam is based on criteria described in the IAC carotid stenosis grading white paper( www.intersocietal.org/Vascular) and Shagufta Andrews., Ritu Armendariz., et al. Carotid artery stenosis: maya-scale and Doppler US diagnosis--Society of Radiologists in Ultrasound Consensus Conference. Radiology. 2003 Nov; 229(2):340-6. Pat.Name: DARIEN HUYNHNess Pat.ID: [id number] .Date: 03/23/2020 Refer.MD: BEAR MAIREE MD Exam Time: 11:25:00 AM Study Type:Carotid Height: 68in Weight: 186lb BSA: 1.98 m2 Age: 9 1945,74Y Sex: MALE Sonogrphr: NOEMI Chapman Pat. Stat.:Inpatient Room: [address] Vol: BE, CPT - 4: 20589 Echo Event ID:[id number] Order ID: [id number] Reason for Study:Cervical bruit, no prior carotid [...] Ratio ICA/CCA PSV 1.14 Signed 03/23/2020 06:39 PMAngel Liang MD, [facility]IB[facility]2021-02-09 19:25:28Tejal Simpson 03/22/2020 1:45 PMAirway Date/Time: 03/22/2020 1:00 PM Location: OR Performed by: EXAMINATION SUPERVISOR/AAAnesthesiologist: Tahmina Mccloud/EXAMINATION SUPERVISOR/AA: Tejal SimpsonAuthorized by: Liu Mccloud Urgency: ElectiveDifficult [...] First attempt using Sheikh 2 blade by EXAMINATION SUPERVISOR. Second attempt with MD with MAC 3. Grade 3b view, secondary to neck stiffness.Grade 1 view with glidescope. ETT passed atraumatically.[facility] CenterTransthoracic Echocardiogram Complete, (w Contrast, Strain and 3D if needed)2020-03-19 20:20:00 Echocardiography Report [address]Name: DARIEN HUYNH Pat.ID: [id number] .Date: 03/19/2020 Refer.MD: CLINT KING DO Exam Time: 11:43:00 AM Study Type:Routine Echo Height: 68in Weight: 185.61lb BSA: 1.98 m2 Age: [birth year],74Y Sex: MALE BP: 110/57 HR: 70 bpm Sonogrphr: NILSON Conde Pat. Stat.:Inpatient Room: [facility] Study Status:Final Echo Event ID:[id number] Order ID: [id number] Reason for Study:Perioperative function eval without cardiac [...] estimate PA systolic pressure. MEASUREMENTS:------- 2DParasternal Long Flanagan Ao An 2.2 cm LVPWd 1.3 cm [...] 03/19/2020 2:20 PM CST Echocardiography Report [address] [place] [address] Pat.Name: DARIEN HUYNHNess Pat.ID: [id number] .Date: 03/19/2020 Refer.MD: CLINT KING DO Exam Time: 11:43:00 AM Study Type:Routine Echo Height: 68in Weight:185.61lb BSA: 1.98 m2 Age: 9 1945,74Y Sex: MALE BP: 110/57 HR: 70 bpm Sonogrphr: NILSON Conde Pat. Stat.:Inpatient Room: [facility] Study Status:Final Echo Event ID:[id number] Order ID: [id number] Reason for Study:Perioperative function eval without cardiac [...] estimate PA systolic pressure. MEASUREMENTS: 2DParasternal Long Flanagan Ao An 2.2 cm LVPWd 1.3 cm [...] 3.7 l/m/m2 Signed 03/19/2020 02:20 Dodie Sarabia M.D.[facility] Lower Extremity Wo Contrast [id number] 13:07:30EXAMINATION: MRI LOWER EXTREMITY WO CONTRAST RIGHT [...] medially, beyond the cortex of the tibia.1D2RAD_PS08[facility] THIGH WO CONTRAST [id number] 12:29:55EXAMINATION: MRI KNEE WO CONTRAST RIGHT, MRI [...] with the fluid surrounding the tibial stem. [facility]-DJTVAV6If Interface, Radiology Results 03/19/2020 6:33 AM CST EXAMINATION: MRI KNEE [...] communicate with the fluid surrounding the tibial stem.RM-ERKGXA0UnukwicpyCHRISTUS [facility]ohn [facility] Knee Right Wo Lhnkissy0241-87-60 12:29:55EXAMINATION: MRI KNEE WO CONTRAST RIGHT, MRI [...] with the fluid surrounding the tibial stem. 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 Infection cannot be excluded. There is a joint effusion present. There is no acute fracture or dislocation. There are vascular calcifications. 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 Infection cannot be excluded. There is a joint effusion present. There is no acute fracture or dislocation. 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 Infection cannot be excluded. Bones are osteopenic. No definite acute fracture is seen. 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 Infection cannot be excluded. Bones are osteopenic. No definite acute fracture is seen.[id number] Christi Medical Center Bay AreaBJ [id number] 02:22:00 Test Item Value Reference Range Interpretation Comments TROPONIN I (test <0.012 See_Comment [Automated code = 2928912218) message] The system which generated this result transmitted reference range : <=0.034 ng/mL. The reference range was not used to interpr et this result as normal/abnormal . JACQUELYN (test code = Equal or Less than JACQUELYN) 0.034 ng/ml---Normal ?Note: Cardiac troponin begins to rise 3-4 hours after the onset of ischemia. Repeat in 4-6 hours if the sample was drawn within 3-4 hours of the onset of the symptom and found normal. Between 0.035 and 0.120 ng/mL--- Borderline. Questionable myocardial injury or necrosis ? ?Note: Serial measurement may be necessary to confirm or exclude the diagnosis of myocardial injury or necrosis; Clinical correlation (symptoms, EKGs, imaging studies, and others) required; Repeat in 4-6 hours if clinically indicated. ? Equal or Higher than 0.121 ng/mL---Abnormal. Myocardial Injury or Necrosis Likely ? Biotin has been reported to cause a negative bias, interpret results relative to patient's use of biotin. ? Lab Interpretation Normal (test code = 08006-2) [facility] [id number] 02:20:00 Test Item Value Reference Range Interpretation Comments TROPONIN I (test <0.012 See_Comment [Automated code = 8631656854) message] The system which generated this result transmitted reference range : <=0.034 ng/mL. The reference range was not used to interpr et this result as normal/abnormal . JACQUELYN (test code = Equal or Less than JACQUELYN) 0.034 ng/ml---Normal ?Note: Cardiac troponin begins to rise 3-4 hours after the onset of ischemia. Repeat in 4-6 hours if the sample was drawn within 3-4 hours of the onset of the symptom and found normal. Between 0.035 and 0.120 ng/mL--- Borderline. Questionable myocardial injury or necrosis ? ?Note: Serial measurement may be necessary to confirm or exclude the diagnosis of myocardial injury or necrosis; Clinical correlation (symptoms, EKGs, imaging studies, and others) required; Repeat in 4-6 hours if clinically indicated. ? Equal or Higher than 0.121 ng/mL---Abnormal. Myocardial Injury or Necrosis Likely ? Biotin has been reported to cause a negative bias, interpret results relative to patient's use of biotin. ? Lab Interpretation Normal (test code = 90803-0) [facility] Test Item Value Reference Range Interpretation Comments APPEARANCE (test code = Clear Clear 0227417263) COLOR (test code = Yellow Yellow 5032581295) PH (test code = 4.8-8.0 5274969265) SP GRAVITY (test code = 1.003-1.030 9718119174) GLU U QUAL (test code = Normal Normal 5217010188) BLOOD (test code = Negative Negative 3845058378) KETONES (test code = Negative Negative 2753025000) PROTEIN (test code = 100 mg/dL Negative A 2887-8) UROBILIN (test code = Normal Normal 9892762997) BILIRUBIN (test code = Negative Negative 2016830015) NITRITE (test code = Negative Negative 5139376559) LEUK AJ (test code = Negative Negative 8059508801) RBC/HPF (test code = See_Comment H [Autom ated message] 9895019527) The system [employer] generated this result transmit amado reference range : 0 - 3 HPF. The refe rence range was not u sed to interpret th is result as normal/abnormal . WBC/HPF (test code = <1 See_Comment [Autom ated message] 5805067799) The system [employer] generated this result transmit amado reference range : 0 - 5 HPF. The refe rence range was not u sed to interpret th is result as normal/abnormal . BACTERIA (test code = Few Negative A 1692861194) MUCOUS (test code = Slight Negative LPF A 8350037330) SQ EPITH (test code = <1 HPF 7436469311) Lab Interpretation (test Abnormal code = 15123-2) [facility] Test Item Value Reference Range Interpretation Comments APPEARANCE (test code = Clear Clear 9594257422) COLOR (test code = Yellow Yellow 0440223445) PH (test code = 4.8-8.0 3951788370) SP GRAVITY (test code = 1.003-1.030 9090060129) GLU U QUAL (test code = Normal Normal 9670276593) BLOOD (test code = Negative Negative 7057746282) KETONES (test code = Negative Negative 1127039004) PROTEIN (test code = 100 mg/dL Negative A 2887-8) UROBILIN (test code = Normal Normal 9967593380) BILIRUBIN (test code = Negative Negative 1187245747) NITRITE (test code = Negative Negative 3419955689) LEUK AJ (test code = Negative Negative 8923259378) RBC/HPF (test code = See_Comment H [Autom ated message] 7717949215) The system [employer] generated this result transmit amado reference range : 0 - 3 HPF. The refe rence range was not u sed to interpret th is result as normal/abnormal . WBC/HPF (test code = <1 See_Comment [Autom ated message] 7470596118) The system [employer] generated this result transmit amado reference range : 0 - 5 HPF. The refe rence range was not u sed to interpret th is result as normal/abnormal . BACTERIA (test code = Few Negative A 1037103594) MUCOUS (test code = Slight Negative LPF A 0414383368) SQ EPITH (test code = <1 HPF 2855857280) Lab Interpretation (test Abnormal code = 21127-2) [facility] [id number] 23:24:26 No acute cardiopulmonary abnormality. Preliminary Report Dictated by Resident: Kavita Eden MD., have reviewed this study and agree with theabove report.EXAM: XR CHEST 1 VWHISTORY: palpitations COMPARISON: None Technique: ?AP view radiograph of the chest FINDINGS: The lungs are clear. No focal consolidation, pleural effusion orpneumothorax is seen. The cardiac silhouette is normal in size. No acute bony abnormality. [facility], Radiant Results Inft User - 11/11/2019 6:25 PM CDTEXAM: XR CHEST 1 VWHISTORY: palpitations COMPARISON: NoneTechnique: AP view radiograph of the chestFINDINGS:The lungs are clear. No focal consolidation, pleural effusion orpneumothorax is seen. The cardiac silhouette is normal in size.No acute bony abnormality.IMPRESSIONNo acute cardiopulmonary abnormality.Preliminary Report Dictated by Resident: Kavita Bradshaw MD., have reviewed this study and agree with theabove report.[facility] [id number] 23:24:26 No acute cardiopulmonary abnormality. Preliminary Report Dictated by Resident: Kavita Eden MD., have reviewed this study and agree with theabove report.EXAM: XR CHEST 1 VWHISTORY: palpitations COMPARISON: None Technique: ?AP view radiograph of the chest FINDINGS: The lungs are clear. No focal consolidation, pleural effusion orpneumothorax is seen. The cardiac silhouette is normal in size. No acute bony abnormality. [facility], Radiant Results Inft User - 11/11/2019 6:25 PM CDTEXAM: XR CHEST 1 VWHISTORY: palpitations COMPARISON: NoneTechnique: AP view radiograph of the ch estFINDINGS:The lungs are clear. No focal consolidation, pleural effusion orpneumothorax is seen. The cardiac silhouette is normal in size.No acute bony abnormality.IMPRESSIONNo acute cardiopulmonary abnormality.Preliminary Report Dictated by Resident: Kavita Bradshaw MD., have reviewed this study and agree with theabove report.[facility] COMP. METABOLIC PANEL (35605)2019-11-11 23:16:00 Test Item Value Reference Range Interpretation Comments NA (test code = 137 mmol/L 135-145 6461759581) K (test code = 4.0 mmol/L 3.5-5 3515681508) CL (test code = 94 mmol/L 98-108 L 0195923468) CO2 TOTAL (test code = 29 mmol/L 23-31 7619364576) AGAP (test code = 2-16 1500228120) BUN (test code = 63 mg/dL 7-23 H 9644439082) GLUCOSE (test code = 142 mg/dL 70-110 H 0214487141) CREATININE (test code = 5.82 mg/dL 0.6-1.25 H 7931400906) TOTAL BILI (test code = 0.4 mg/dL 0.1-1.6 9960253474) CALCIUM (test code = 9.8 mg/dL 8.6-10.6 2242591555) T PROTEIN (test code = 7.5 g/dL 6.3-8.2 0471838558) ALBUMIN (test code = 4.2 g/dL 3.5-5 0990786033) ALK PHOS (test code = 100 U/L 34-122 0550871551) ALTv (test code = 14 U/L 5-50 1742-6) AST(SGOT) (test code = 27 U/L 13-40 2252115948) eGFR Calculation mL/min/1.73m2 (Non-) (test code = 3465076654) eGFR Calculation mL/min/1.73m2 () (test code = 3342994006) JACQUELYN (test code = JACQUELYN) Association of Glomerular Filtration Rate (GFR) and Staging of Kidney Disease* + --+ --+ ------+| GFR (mL/min/1.73 m2) ?| With Kidney Damage ?| ?Without Kidney Damage+ --------+ --------+ +| ?>90 ?| ?Stage one ?| ? Normal ?+ ---+ ---+ -------+| ?60-89 ?| ?Stage two ?| ? Decreased GFR ? + --+ --+ ------+| ?30-59 ?| ?Stage three ?| ? Stage three ? + --+ --+ ------+| ?15-29 ?| ?Stage four ? | ? Stage four ?+ ---+ ---+ -------+| ?<15 (or dialysis) ? ?| ?Stage five ? | ? Stage five ?+ ---+ ---+ -------+ *Each stage assumes the associated GFR level has been in effect for at least three months. ?Stages 1 to 5, with or without kidney disease, indicate chronic kidney disease. Notes: Determination of stages one and two (with eGFR >59mL/min/1.73 m2) requires estimation of kidney damage for at least three months as defined by structural or functional abnormalities of the kidney, manifested by either:Pathological abnormalities or Markers of kidney damage (including abnormalities in the composition of the blood or urine or abnormalities in imaging tests). Lab Interpretation Abnormal (test code = 75367-2) [facility] 23:16:00 Test Item Value Reference Range Interpretation Comments MAGNESIUM (test code = 1350641802) 2.5 mg/dL 1.7-2.4 H Lab Interpretation (test code = Abnormal 27000-6) [facility]OLIC [facility] (34593)2019-11-11 23:16:00 Test Item Value Reference Range Interpretation Comments NA (test code = 137 mmol/L 135-145 4729950253) K (test code = 4.0 mmol/L 3.5-5 3541258752) CL (test code = 94 mmol/L 98-108 L 4292962773) CO2 TOTAL (test code = 29 mmol/L 23-31 7833444066) AGAP (test code = 2-16 4245973685) BUN (test code = 63 mg/dL 7-23 H 1218629223) GLUCOSE (test code = 142 mg/dL 70-110 H 2792574997) CREATININE (test code = 5.82 mg/dL 0.6-1.25 H 7427259030) TOTAL BILI (test code = 0.4 mg/dL 0.1-1.2 2568032619) CALCIUM (test code = 9.8 mg/dL 8.6-10.6 1479523612) T PROTEIN (test code = 7.5 g/dL 6.3-8.2 2637728771) ALBUMIN (test code = 4.2 g/dL 3.5-5 1767379900) ALK PHOS (test code = 100 U/L 34-122 8872727983) ALTv (test code = 14 U/L 5-50 1742-6) AST(SGOT) (test code = 27 U/L 13-40 9604737749) eGFR Calculation mL/min/1.73m2 (Non-) (test code = 9774259848) eGFR Calculation mL/min/1.73m2 () (test code = 8291726468) JACQUELYN (test code = JACQUELYN) Association of Glomerular Filtration Rate (GFR) and Staging of Kidney Disease* + --+ --+ ------+| GFR (mL/min/1.73 m2) ?| With Kidney Damage ?| ?Without Kidney Damage+ --------+ --------+ +| ?>90 ?| ?Stage one ?| ? Normal ?+ ---+ ---+ -------+| ?60-89 ?| ?Stage two ?| ? Decreased GFR ? + --+ --+ ------+| ?30-59 ?| ?Stage three ?| ? Stage three ? + --+ --+ ------+| ?15-29 ?| ?Stage four ? | ? Stage four ?+ ---+ ---+ -------+| ?<15 (or dialysis) ? ?| ?Stage five ? | ? Stage five ?+ ---+ ---+ -------+ *Each stage assumes the associated GFR level has been in effect for at least three months. ?Stages 1 to 5, with or without kidney disease, indicate chronic kidney disease. Notes: Determination of stages one and two (with eGFR >59mL/min/1.73 m2) requires estimation of kidney damage for at least three months as defined by structural or functional abnormalities of the kidney, manifested by either:Pathological abnormalities or Markers of kidney damage (including abnormalities in the composition of the blood or urine or abnormalities in imaging tests). Lab Interpretation Abnormal (test code = 32163-0) [facility] 23[facility]16:00 Test Item Value Reference Range Interpretation Comments MAGNESIUM (test code = 4070527282) 2.5 mg/dL 1.7-2.4 H Lab Interpretation (test code = Abnormal 52233-9) [facility] WITH [id number] 22:53:00 Test Item Value Reference Range Interpretation Comments WBC (test code = See_Comment [Automated 5966-2) message] The sy stem which generated this result transmitted reference range : 4.20 - 10.70 10*3/?L. The reference range was not used to interpret this result as normal/abnormal . RBC (test code = See_Comment L [Automated 616-8) message] The sy stem which generated this result transmitted reference range : 4.26 - 5.52 10*6/?L. The reference range was not used to interpret this result as normal/abnormal . HGB (test code = 10.5 g/dL 12.2-16.4 L 718-7) HCT (test code = 32.2 % 38.4-49.3 L 4544-3) MCV (test code = 89.7 fL 81.7-95.6 787-2) MCH (test code = 29.2 pg 26.1-32.7 785-6) MCHC (test code = 32.6 g/dL 31.2-35 786-4) RDW-SD (test code = 46.1 fL 38.5-51.6 24982-6) RDW-CV (test code = 13.9 % 12.1-15.4 788-0) PLT (test code = See_Comment [Automated 777-3) message] The sy stem which generated this result transmitted reference range : 150 - 328 10*3/ ?L. The reference r za was not used to interpret this result as normal/abnormal . MPV (test code = 8.7 fL 9.8-13 L 64014-7) NRBC/100 WBC (test See_Comment [Automat ed code = 6295512849) message] The system which generated this result transmitted reference range : 0.0 - 10.0 /100 WBCs. The refer ence range was not u sed to interpret th is result as normal/abnormal . NRBC x10^3 (test code <0.01 See_Comment [Auto mated = 6756353774) message] The s ystem which generated this result transmitted reference range : 10*3/?L. The reference range was not used to interpret this result as normal/abnormal . GRAN MAT (NEUT) % 79.0 % (test code = 770-8) IMM GRAN % (test code 0.50 % = 0700743837) LYMPH % (test code = 7.3 % 736-9) MONO % (test code = 9.1 % 5905-5) EOS % (test code = 3.8 % 713-8) BASO % (test code = 0.3 % 706-2) GRAN MAT x10^3(ANC) 6.93 10*3/uL 1.99-6.95 (test code = 5861829901) IMM GRAN x10^3 (test 0.04 10*3/uL 0-0.06 code = 2802079038) LYMPH x10^3 (test code 0.64 10*3/uL 1.09-3.23 L = 731-0) MONO x10^3 (test code 0.80 10*3/uL 0.36-1.02 = 742-7) EOS x10^3 (test code = 0.33 10*3/uL 0.06-0.53 711-2) BASO x10^3 (test code 0.03 10*3/uL 0.01-0.09 = 704-7) Lab Interpretation Abnormal (test code = 89039-6) [facility] WITH [id number] 22:53:00 Test Item Value Reference Range Interpretation Comments WBC (test code = See_Comment [Automated 2190-2) message] The sy stem which generated this result transmitted reference range : 4.20 - 10.70 10*3/?L. The reference range was not used to interpret this result as normal/abnormal . RBC (test code = See_Comment L [Automated 469-8) message] The sy stem which generated this result transmitted reference range : 4.26 - 5.52 10*6/?L. The reference range was not used to interpret this result as normal/abnormal . HGB (test code = 10.5 g/dL 12.2-16.4 L 718-7) HCT (test code = 32.2 % 38.4-49.3 L 4544-3) MCV (test code = 89.7 fL 81.7-95.6 787-2) MCH (test code = 29.2 pg 26.1-32.7 785-6) MCHC (test code = 32.6 g/dL 31.2-35 786-4) RDW-SD (test code = 46.1 fL 38.5-51.6 63044-0) RDW-CV (test code = 13.9 % 12.1-15.4 788-0) PLT (test code = See_Comment [Automated 777-3) message] The sy stem which generated this result transmitted reference range : 150 - 328 10*3/ ?L. The reference r za was not used to interpret this result as normal/abnormal . MPV (test code = 8.7 fL 9.8-13 L 26287-7) NRBC/100 WBC (test See_Comment [Automat ed code = 2232278628) message] The system which generated this result transmitted reference range : 0.0 - 10.0 /100 WBCs. The refer ence range was not u sed to interpret th is result as normal/abnormal . NRBC x10^3 (test code <0.01 See_Comment [Auto mated = 1436896749) message] The s ystem which generated this result transmitted reference range : 10*3/?L. The reference range was not used to interpret this result as normal/abnormal . GRAN MAT (NEUT) % 79.0 % (test code = 770-8) IMM GRAN % (test code 0.50 % = 6683932647) LYMPH % (test code = 7.3 % 736-9) MONO % (test code = 9.1 % 5905-5) EOS % (test code = 3.8 % 713-8) BASO % (test code = 0.3 % 706-2) GRAN MAT x10^3(ANC) 6.93 10*3/uL 1.99-6.95 (test code = 8266402583) IMM GRAN x10^3 (test 0.04 10*3/uL 0-0.06 code = 9294075322) LYMPH x10^3 (test code 0.64 10*3/uL 1.09-3.23 L = 731-0) MONO x10^3 (test code 0.80 10*3/uL 0.36-1.02 = 742-7) EOS x10^3 (test code = 0.33 10*3/uL 0.06-0.53 711-2) BASO x10^3 (test code 0.03 10*3/uL 0.01-0.09 = 704-7) Lab Interpretation Abnormal (test code = 69401-5) [facility], [facility]OWER WITHOUT CONTRAST, RIGHT 2017-01-25 19:47:00FINAL REPORT CLINICAL HISTORY: Trauma and pain [...] degenerative changes are present in the right hip.Vascular calcifications are present in the pelvis and right lower extremity. There are some prominent right inguinal lymph nodes. The largest has a short axis diameter of 1.7 cm. IMPRESSION: Minimally d isplaced fracture of the superior margin of the greater trochanter of the right femur. Prominent right inguinal lymph nodes, nonspecific. These may be reactive or reflect primary lymphoproliferative ormetastatic neoplasm. Correlation is recommended. Signed: Jorge Kumar Verified Date/Time:01/25/2017 19:47:23 Reading Location: [address] Reading Room RAD, HIP, 2 VIEWS, [id number] 19:11:00Reason for exam:->FALLReason for exam:->HIP PAINShould this be performed at the bedside?->NoFINAL REPORT CLINICAL HISTORY: Trauma and pain COMPARISON: None. FINDINGS: Frontal view of the pelvis and a lateral view of the right hip are submitted. There is no acute fracture, malalignment or destructive bony lesion. Surgical clips overlie the right lower abdomen. Signed: Jorge Kumar Verified Date/Time: 01/25/2017 19:11:49 Reading Location: [address] Reading Room msrqewci8223-58-30 16:35:35758Fwqdsywh YnelsgeDweqlwrfd9130-81-57 16:35:93910Lgdghfld VrglkhxKiwzwkjta0037-29-23 16:35:0032[facility] Xazeojyio1312-46-93 16:35:30539Hcyyozjk ZqzbstdStthzaofk5664-95-19 16:35:06652 MEQ/LMemorial PfbvrlhHwvkwyfzm2024-55-34 16:35:004.3 [facility]/L[facility] [place] Lmhrqkchu4387-39-84 16:35:002.5[facility] FfdvucpPdqamfaau6188-95-58 16:35:0029 [facility] RluhxglUxlhuomuw0717-48-34 16:35:00 Test Item Value Reference Range Interpretation Comments BUN/CREAT (test code = BUN/CREAT) 12 08-05 [facility] MolunaxWufsfosnu7403-66-78 16:35:004.2[facility] 2014-02-18 16:35:008.9[facility] CfbigrwMjujbsvpz9449-41-68 16:35:0036[facility] TrlailqBzyqndgca9580-10-23 16:35:0025[facility] SpmjgstLtnewigal0176-47-31 16:35:16642Iqapqmpo ThgaoatIgzxmgeez6529-65-18 16:35:001.380[facility] Uotrtxlja1708-64-02 16:35:002.00[facility] EoqmweyVjtzdcbiqm7196-94-72 16:35:00 13.9[facility] RnfykygHbxgqngmdr9778-68-45 16:35:0041.4[facility] 2014-02-18 16:35:07155 K/CMMMemorial BthcyglLotcopfh6727-41-32 16:35:00Non ReactiveMemorial BdishcwMsxfwaxcb1081-96-40 16:35:86709Bsndqzvu [facility]annChem[facility] 2014-02-18 16:35:38177Fuqudrjg IzxchbyUwnzhmnlr9540-00-58 16:35:0032[facility] ZbjidizBjjlveaqu0999-03-56 16:35:40856Skyvgfpd TsfliehAoybiavsd2437-10-74 16:35:24004 MEQ/LMemorial CcxktuwCchvnddrn6932-17-04 16:35:004.3 MEQ/LMemorial QdtqwgvUesirafif5105-84-09 16:35:002.5[facility] CfaheenXqzqtcnnl9252-92-20 16:35:0029[facility] FrpzgmhZplefcvmo0165-19-65 16:35:00 Test Item Value Reference Range Interpretation Comments BUN/CREAT (test code = BUN/CREAT) 12 1 6-25 [facility] NclgwjgPgbgvkbkv1124-70-34 16:35:004.2[facility] 2014-02-18 16:35:008.9[facility] QothlkmQjldxwyrf4011-92-79 16:35:0036[facility] ZkovnoqWmqnkeayq1101-31-21 16:35:0025[facility] EmecjqaTquukvtdo6396-59-60 16:35:78629Sswibxdr ZlwmppyWsmtazbnu0376-90-36 16:35:001.380[facility] Itmcfttms9536-73-59 16:35:002.00[facility] OpxlhdyTkrcuchxwz9502-80-83 16:35:00 13.9[facility] IckkptoZawrshsvpd7470-85-81 16:35:0041.4[facility]ann[facility] 2014-02-18 16:35:27785 K/CMMMemorial TsnyxofUgfwnffr3174-83-43 16:35:00Non ReactiveMemorial DjnrqbaOjtxsmszq5693-05-73 20:45:49599Vsumhzoe [facility]annChemistry 2013-01-23 20:45:59561Oxovemlf EshghzgLkzmybqih5658-88-74 20:45:0023[facility] UygbvqtAupsuqenc1776-90-68 20:45:01300Hwouhanl IstamvwAsaegvuge6578-83-81 20:45:23125Owaohspx AfzbvsqFsuoxawsi6901-28-17 20:45:0023[facility] [place] Gtsqmeuim4813-92-99 20:45:00See Note mg/dLMemorial TexrxkcGygibkbhy9622-50-73 20:45:44797 MEQ/LMemorial XfixrvnMdsfzroiw5471-63-86 20:45:004.5 MEQ/LMemorial LdcrfshFzcqdqcqm0413-91-45 20:45:001.8[facility] XepdfaeVkztxtjfv5571-90-57 20:45:0030[facility] LrggnjlIgdyiougq2787-24-44 20:45:00 Test Item Value Reference Range Interpretation Comments BUN/CREAT (test code = BUN/CREAT) 17 08-05 [facility] PvubpvaIirmdyyup1189-78-49 20:45:004.2[facility] 2013-01-23 20:45:009.3[facility] CcvjzlyEyswlvhww5156-87-10 20:45:0031[facility] HxmcyqhWsopoxfxn0887-31-99 20:45:0020[facility] NopksucRvrdlwbur0187-59-83 20:45:36569Ciigiuuj XsldnbxIkhncakef1431-56-11 20:45:001.390[facility] Leoomnwmm4676-90-66 20:45:001.33[facility] XgmnzrbBvttteqcg7380-97-16 20:45:84178 [facility] ZljmawwHmuyvtgex2334-29-27 20:45:41005Qqxoccoa HermannChemistry 2013-01-23 20:45:0023[facility] DmfpynrDqowlmwri6998-39-02 20:45:90457Gxtsdnsp XrqwcfsPbjzvmtsc0634-15-32 20:45:96605Hxandeud ToonklgUvnmrrzmr0790-93-31 20:45:0023[facility] IxbpftwTywovqvnc2427-73-91 20:45:00See Note mg/dLMemorial ZcodtzyLxtxbzywe4043-73-44 20:45:15369 MEQ/LMemorial JcqllkqHwinlchwr2799-37-78 20:45:004.5 MEQ/LMemorial SpwmqvoBakkplnab3932-36-50 20:45:001.8[facility] [place] Jrjyxzgtb5508-35-55 20:45:0030[facility] MhylxyhIbuyavbhk5789-35-84 20:45:00 Test Item Value Reference Range Interpretation Comments BUN/CREAT (test code = BUN/CREAT) 17 08-05 [facility] EimxwfgIwbtaggta3623-47-69 20:45:004.2[facility] 2013-01-23 20:45:009.3[facility] UhsykkrFwfgojuug5583-35-61 20:45:0031[facility] CpdwtecEynixnfyi6317-51-44 20:45:0020[facility] JvjpmtvNcpywefkk0057-45-04 20:45:18278Uycppphp BhtqkktNcbktlgsc4812-60-95 20:45:001.390[facility] [place] Odoszxoam1148-91-52 20:45:001.33[facility] YivweedWggkpmphe8492-36-83 15:12:571.57 [facility] KgbtnzjJskuropdv5551-17-52 15:12:571.57[facility] 2012-04-02 15:12:571.57[facility] JqhnuxdAxxoggyxy1132-30-52 15:12:571.57[facility]"
--- NOTE | 2021-01-06 10:45 | RAD REPORT ---
EXAM DESCRIPTION: CT - Head C Spine Cap Wo Con - 01/06/2021 10:07 am TECHNIQUE: Computed axial tomography of the head and cervical spine was obtained. Coronal and sagitt al reconstruction was performed Computed axial tomography of the chest, abdomen and pelvis was obtained. Contrast was not requested. All CT scans are performed using dose optimization technique as appropriate and may include automated exposure control or mA/KV adjustment according to patient size. CLINICAL HISTORY: Head and neck injury with chest and abdominal pain status post fall COMPARISON: CT 2019 and 2020 FINDINGS: An intracranial bleed is not seen. Mild low-density areas within periventricular, deep and subcortica l white matter likely ischemic changes secondary to small vessel disease. The ventricles are normal in caliber. An extra-axial fluid collection is not noted. . Fluid within the sinuses/mastoids is not seen. A cervical fracture is not seen. No dislocation is noted. Ossification involves the anterior aspect o f the vertebral bodies C2 through C5. The evaluation of mediastinum, ayush, vessels, solid organs and bowel are limited secondary to the lac k of contrast administration. A mediastinal hematoma is not noted. A pleural effusion is not seen. A lung contusion is not present. The liver,spleen, pancreas, adrenals,kidneys and bladder do not demonstrate a traumatic injury. Right nephrectomy. Right posterolateral abdominal hernia contains liver. Ankylosing spondylitis IMPRESSION: 1. No acute intracranial abnormality is seen. 2. A cervical fracture is not visualized. If the patient continues have symptoms to suggest intracran ial/spinal cord pathology MRI be recommended 3. No traumatic abnormality involving the chest/abdomen/pelvis.
[2021-01-06 11:03] LABS: Absolute Lymphocytes (CBC) 0.5 K/uL (0.7-4.9); Basophils % 0.6 % (0-1.3); Hematocrit 36.7 % (39.6-49.0); Lymphocytes % 6.5 % (15.3-44.8); MPV 6.6 fL (7.6-11.3); RBC Red Blood Cell Count 4.09 M/uL (4.33-5.43)
[2021-01-06 11:04] LABS: Protime INR 1.09
[2021-01-06 11:20] LABS: ALT/SGPT 25 U/L (12-78); AST/SGOT 21 U/L (15-37); Albumin 3.8 g/dL (3.4-5.0); Alkaline Phosphatase 97 U/L (45-117); BUN Blood Urea Nitrogen 49 mg/dL (7-18); Bicarbonate 24 mmol/L (21-32); Bilirubin Direct 0.1 mg/dL (0-0.2); Bilirubin Total 0.5 mg/dL (0.2-1.0); Glucose Level 80 mg/dL (74-106); Magnesium 2.7 mg/dL (1.8-2.4); NT PRO-BNP 5800 pg/mL (<450); Potassium 4.5 mmol/L (3.5-5.1); Protein, Total 7.8 g/dL (6.4-8.2); Sodium Level 141 mmol/L (136-145); Troponin (Emerg Dept Use Only) < 0.02 ng/mL (0.0-0.045)
--- NOTE | 2021-01-06 11:35 | RAD REPORT ---
EXAM DESCRIPTION: Luan Single View01/06/2021 9:59 am CLINICAL HISTORY: Alteration consciousness COMPARISON: September 2020 FINDINGS: The lungs appear clear of acute infiltrate. The heart is mildly enlarged . IMPRESSION: No acute abnormalities displayed
[2021-01-06 12:45] LABS: Urine Blood Trace-intact (Negative); Urine Glucose Negative (Negative); Urine Protein 2+ (Negative)
--- NOTE | 2021-01-06 13:05 | ER ---
Nurse's Notes [facility] Name: Amando Grossman Age: 75 yrs Sex: Male : 1945 Arrival Date: 01/06/2021 Time: 09:38 Bed 2 Private MD: Diagnosis: Altered mental status, unspecified;Fall from sitting in a wheelchair Presentation: 01/06 09:49 Chief complaint: EMS states: Ring doorbell camera clocked patient exiting his house ss around 0400 this morning. Neighbors found him outside in his driveway. Pt told him that he was trying to get to his truck to go to dialysis. Neighbors brought him inside and went home. They again found him outisde in driveway and called 911. Pt is A\T\O x4, reports that he remembers everything, but is unsure why he was outside at 4 in the morning. Denies pain. Coronavirus screen: Client denies travel out of the [place] in the last 14 days. Ebola Screen: Patient denies exposure to infectious person. Patient denies travel to an Ebola-affected area in the 21 days before illness onset. Initial Sepsis Screen: Does the patient meet any 2 criteria? No. Patient's initial sepsis screen is negative. Does the patient have a suspected source of infection? No. Patient's initial sepsis screen is negative. Risk Assessment: Do you want to hurt yourself or someone else? Patient reports no desire to harm self or others. Onset of symptoms was January 06, 2021. Care prior to arrival: Glucose check: 76. 09:49 Method Of Arrival: EMS: [facility] 09:49 Acuity: KELLY 3 ss Triage Assessment: 12:21 General: Appears in no apparent distress. comfortable, Behavior is calm, cooperative. ll3 Pain: Denies pain. Historical: - Allergies: 09:54 Iodine; topical is ok; ss 09:54 PENICILLINS; ss - Home Meds: 09:54 aspirin 81 mg Oral chew 1 tab once daily [Active]; Celebrex 100 mg Oral cap 1 cap once ss daily [Active]; clopidogrel 75 mg Oral tab 1 tab once daily [Active]; fluticasone inhalation [Active]; metoprolol tartrate 50 mg Oral tab 1 tab 2 times per day [Active]; pantoprazole 40 mg Oral TbEC 1 tab once daily [Active]; Sular 34 mg Oral Tb24 1 tab once daily [Active]; tamsulosin 0.4 mg Oral cp24 1 cap once daily [Active]; WelChol 3.75 gram Oral pwpk 1 packet twice a day [Active]; zolpidem 10 mg Oral tab 1 tab nightly [Active]; - PMHx: 09:54 Anxiety; Hypertension; cholesterol; mascular degeneration; Depression; GERD; High ss Cholesterol; Hypertension; Urinary Urgency; 13:22 Dialysis <M and F; jl7 - PSHx: 09:54 CABG; Cardaic stent; colon resection; Carpal tunnel surgery, bilateral; Replacement of ss total knee joint; Bilateral; Right Nephrectomy; - Immunization history:: Client reports receiving the 2nd dose of the Covid vaccine. - Social history:: Smoking status: Patient denies any tobacco usage or history of. Screenin:20 Abuse screen: Denies threats or abuse. Nutritional screening: No deficits noted. ll3 Tuberculosis screening: No symptoms or risk factors identified. Fall Risk Secondary diagnosis (15 points) impaired mobility, IV access (20 points). Ambulatory Aid- Crutches/Cane/Walker (15 pts). Gait- Impaired (20 pts.). Assessment: 09:45 General: See triage. ll3 11:00 Reassessment: Patient appears in no apparent distress at this time. No changes from ll3 previously documented assessment. Patient and/or family updated on plan of care and expected duration. Pain level reassessed. Patient is alert, oriented x 3, equal unlabored respirations, skin warm/dry/pink. Patient denies pain at this time. 12:10 Reassessment: Patient appears in no apparent distress at this time. No changes from ll3 previously documented assessment. Patient and/or family updated on plan of care and expected duration. Pain level reassessed. Patient is alert, oriented x 3, equal unlabored respirations, skin warm/dry/pink. Patient denies pain at this time. 13:12 Reassessment: Patient appears in no apparent distress at this time. No changes from ll3 previously documented assessment. Patient and/or family updated on plan of care and expected duration. Pain level reassessed. Patient is alert, oriented x 3, equal unlabored respirations, skin warm/dry/pink. Patient denies pain at this time. Vital Signs: 09:45 BP 148 / 73; Pulse 71; Resp 16; Pulse Ox 100% on R/A; ll3 09:49 BP 158 / 76; Pulse 78; Resp 15; Temp 97.6(TE); Pulse Ox 97% on R/A; Height 5 ft. 8 in. ss (172.72 cm); Pain 0/10; 12:11 BP 170 / 75; Pulse 80; Resp 12; Pulse Ox 98% on R/A; ll3 13:13 BP 178 / 84; Pulse 84; Resp 14; Pulse Ox 99% on R/A; ll3 ED Course: 09:38 Patient arrived in ED. em1 09:41 Trevor Abdalla MD is Attending Physician. kdr 09:54 Triage completed. ss 09:54 Arm band placed on right wrist. ss 09:56 Andrés Gandara, ADRIEN is Primary Nurse. ll3 09:59 XRAY Chest (1 view) In Process Unspecified. EDMS 10:07 CT Traumagram (Head C Spine CAP wo con) In Process Unspecified. EDMS 10:55 Inserted saline lock: 20 gauge in right antecubital area, using aseptic technique. ll3 12:22 Patient has correct armband on for positive identification. Placed in gown. Bed in low ll3 position. Call light in reach. Side rails up X2. 13:28 No provider procedures requiring assistance completed. IV discontinued, intact, ll3 bleeding controlled, No redness/swelling at site. Pressure dressing applied. Administered Medications: No medications were administered Outcome: 13:04 Discharge ordered by . kdr 13:28 Discharged to home via wheelchair. ll3 13:28 Condition: stable 13:28 Discharge instructions given to patient, Instructed on discharge instructions, follow up and referral plans. Demonstrated understanding of instructions, follow-up care. 13:29 Patient left the ED. ll3 Signatures: Dispatcher [employer] EDMS Trevor Abdalla MD MD kdr Martinez, Eric em1 Lisa Blankenship RN RN ss Leal, Jahala, RN RN jl7 Andrés Gandara, ADRIEN RN ll3 Corrections: (The following items were deleted from the chart) 12:10 12:09 General: See triage. ll3 ll3 12:10 12:09 Pain: Denies pain. ll3 ll3 13:13 12:10 Reassessment: ll3 ll3
--- NOTE | 2021-01-06 13:05 | EDPHYS ---
Physician Documentation [facility] Name: Amando Grossman Age: 75 yrs Sex: Male : 1945 Arrival Date: 01/06/2021 Time: 09:38 Bed 2 Private MD: ED Physician Trevor Abdalla HPI: 01/06 10:20 This 75 yrs old Male presents to ER via EMS with complaints of Fall from wheelchair. kdr 10:20 Per EMS, the patient was found in his driveway twice today by the neighbors. The first kdr time they put him back in his wheelchair and put a blanket around to him. It appears that he may have gone outdoors around 4 AM. It is unclear exactly how long he was out there. Neighbors initially found him and put him back in his wheelchair and gave him a blanket. Subsequently he again went outside and fell again out of his wheelchair. Neighbors again found him and called EMS this time. He was transported to the ED without incident. The patient has no focal complaints. He appears to be oriented but unable to really answer questions with regard to why he was out or when he had gone outside. He did indicate that he was going to dialysis (Saturday and Saturday only.) However he was not able to give any other information. He had no focal complaints of any pain. Onset: The symptoms/episode began/occurred suddenly, just prior to arrival, this morning. Severity of symptoms: At their worst the symptoms were mild moderate just prior to arrival, this morning, in the emergency department the symptoms are unchanged. It is unknown whether or not the patient has had similar symptoms in the past. It is unknown whether or not the patient has recently seen a physician. Historical: - Allergies: 09:54 Iodine; topical is ok; ss 09:54 PENICILLINS; ss - Home Meds: 09:54 aspirin 81 mg Oral chew 1 tab once daily [Active]; Celebrex 100 mg Oral cap 1 cap once ss daily [Active]; clopidogrel 75 mg Oral tab 1 tab once daily [Active]; fluticasone inhalation [Active]; metoprolol tartrate 50 mg Oral tab 1 tab 2 times per day [Active]; pantoprazole 40 mg Oral TbEC 1 tab once daily [Active]; Sular 34 mg Oral Tb24 1 tab once daily [Active]; tamsulosin 0.4 mg Oral cp24 1 cap once daily [Active]; WelChol 3.75 gram Oral pwpk 1 packet twice a day [Active]; zolpidem 10 mg Oral tab 1 tab nightly [Active]; - PMHx: 09:54 Anxiety; Hypertension; cholesterol; mascular degeneration; Depression; GERD; High ss Cholesterol; Hypertension; Urinary Urgency; 13:22 Dialysis <M and F; jl7 - PSHx: 09:54 CABG; Cardaic stent; colon resection; Carpal tunnel surgery, bilateral; Replacement of ss total knee joint; Bilateral; Right Nephrectomy; - Immunization history:: Client reports receiving the 2nd dose of the Covid vaccine. - Social history:: Smoking status: Patient denies any tobacco usage or history of. ROS: 10:20 Constitutional: Negative for fever, chills, and weight loss, Eyes: Negative for injury, kdr pain, redness, and discharge, Neck: Negative for injury, pain, and swelling, Cardiovascular: Negative for chest pain, palpitations, and edema, Respiratory: Negative for shortness of breath, cough, wheezing, and pleuritic chest pain, Abdomen/GI: Negative for abdominal pain, nausea, vomiting, diarrhea, and constipation, Back: Negative for injury and pain, : Negative for injury, bleeding, discharge, and swelling, MS/Extremity: Negative for injury and deformity, patient has a right AKA Skin: Negative for injury, rash, and discoloration, Psych: Negative for depression, anxiety, suicide ideation, homicidal ideation, and hallucinations, Allergy/Immunology: Negative for hives, rash, and allergies, Endocrine: Negative for neck swelling, polydipsia, polyuria, polyphagia, and marked weight changes, Hematologic/Lymphatic: Negative for swollen nodes, abnormal bleeding, and unusual bruising. 10:20 Neuro: Positive for altered mental status, weakness. Exam: 10:20 Constitutional: This is a well developed, well nourished patient who is awake, kdr somewhat alert but in no acute distress. Head/Face: Normocephalic, atraumatic. Eyes: Pupils equal round and reactive to light, extra-ocular motions intact. Lids and lashes normal. Conjunctiva and sclera are non-icteric and not injected. Cornea within normal limits. Periorbital areas with no swelling, redness, or edema. Neck: Trachea midline, no thyromegaly or masses palpated, and no cervical lymphadenopathy. Supple, full range of motion without nuchal rigidity, or vertebral point tenderness. No Meningismus. Chest/axilla: Normal chest wall appearance and motion. Nontender with no deformity. No lesions are appreciated. Cardiovascular: Regular rate and rhythm with a normal S1 and S2. No gallops, murmurs, or rubs. Normal PMI, no JVD. No pulse deficits. Respiratory: Lungs have equal breath sounds bilaterally, clear to auscultation and percussion. No rales, rhonchi or wheezes noted. No increased work of breathing, no retractions or nasal flaring. Abdomen/GI: Soft, non-tender, with normal bowel sounds. No distension or tympany. No guarding or rebound. No evidence of tenderness throughout. Back: No spinal tenderness. No costovertebral tenderness. Full range of motion. Skin: Warm, dry with normal turgor. Normal color with no rashes, no lesions, and no evidence of cellulitis. MS/ Extremity: Pulses equal, no cyanosis. Neurovascular intact. Full, normal range of motion. Patient does have a right AKA Psych: Awake, alert, with orientation to person, place and time. Behavior, mood, and affect are within normal limits. 10:20 Neuro: Orientation: to person, place \T\ time. Patient does not seem to be aware of why he was in the driveway at an early hour or what happened in any detail. He is slow to respond but does respond when questioned, Mentation: able to follow commands, slow to respond, confused. Vital Signs: 09:45 BP 148 / 73; Pulse 71; Resp 16; Pulse Ox 100% on R/A; ll3 09:49 BP 158 / 76; Pulse 78; Resp 15; Temp 97.6(TE); Pulse Ox 97% on R/A; Height 5 ft. 8 in. ss (172.72 cm); Pain 0/10; 12:11 BP 170 / 75; Pulse 80; Resp 12; Pulse Ox 98% on R/A; ll3 13:13 BP 178 / 84; Pulse 84; Resp 14; Pulse Ox 99% on R/A; ll3 MDM: 13:04 Patient medically screened. kdr 13:05 Data reviewed: vital signs, nurses notes, lab test result(s), radiologic studies. kdr Counseling: I had a detailed discussion with the patient and/or guardian regarding: the historical points, exam findings, and any diagnostic results supporting the discharge/admit diagnosis, lab results, radiology results, the need for outpatient follow up. 13:06 ED course: Patient was stable and improving in the ED. He did not require any medical kdr or surgical intervention in the ED. He felt that he was improved to the point of going home. He indicated that he had neighbors who looked after him and would assist him as needed. He was happy with the care provided and the plan for discharge and follow-up. 01/06 09:46 Order name: Basic Metabolic Panel; Complete Time: 11:51 kdr 01/06 09:46 Order name: CBC with Diff; Complete Time: 11:19 kdr 01/06 09:46 Order name: LFT's; Complete Time: 11:51 kdr 01/06 09:46 Order name: Magnesium; Complete Time: 11:51 kdr 01/06 09:46 Order name: NT PRO-BNP; Complete Time: 11:51 [facility] 01/06 09:46 Order name: PT-INR; Complete Time: 11:19 kdr 01/06 09:46 Order name: CT Traumagram (Head C Spine CAP wo con); Complete Time: 11:19 kdr 01/06 09:46 Order name: Troponin (emerg Dept Use Only); Complete Time: 11:51 kdr 01/06 09:46 Order name: XRAY Chest (1 view); Complete Time: 11:51 kdr 01/06 09:46 Order name: EKG; Complete Time: 09:47 kdr 01/06 09:46 Order name: Cardiac monitoring; Complete Time: 10:34 kdr 01/06 09:46 Order name: EKG - Nurse/Tech; Complete Time: 12:08 kdr 01/06 12:45 Order name: Urine Dipstick-Ancillary EDMS 01/06 09:46 Order name: IV Saline Lock; Complete Time: 10:55 kdr 01/06 09:46 Order name: Labs collected and sent; Complete Time: 10:55 kdr 01/06 09:46 Order name: O2 Per Protocol; Complete Time: 10:55 kdr 01/06 09:46 Order name: O2 Sat Monitoring; Complete Time: 10:55 kdr 01/06 11:52 Order name: VS Recheck; Complete Time: 12:08 kdr Administered Medications: No medications were administered Disposition Summary: 01/06/21 13:04 Discharge Ordered Location: Home kdr Problem: new kdr Symptoms: are resolved kdr Condition: Stable kdr Diagnosis - Altered mental status, unspecified kdr - Fall from sitting in a wheelchair kdr Followup: kdr - With: Private Physician - When: 2 - 3 days - Reason: If symptoms return, Further diagnostic work-up, Recheck today's complaints, Continuance of care, Re-evaluation by your physician Discharge Instructions: - Discharge Summary Sheet kdr - Confusion kdr - Fall Prevention in the Home, Adult, [id number] kdr Forms: - Medication Reconciliation Form kdr - Thank You Letter kdr Signatures: Dispatcher [employer] Trevor Rucker MD MD kdr Lisa Blankenship RN RN ss Bao Dukes RN RN jl7
[2021-01-06 13:37] VITALS: TEMP 97.6
[2021-01-06 13:40] VITALS: BP 178/84; O2SAT 99
== END 2021-01-06 13:29 | disposition home or self-care (01) ==
LOC: ER 09:36
DX: R41.82 Altered mental status, unspecified (principal); W05.0XXA Fall from non-moving wheelchair, initial encounter; F41.8 Other specified anxiety disorders; Z88.0 Allergy status to penicillin; Z99.2 Dependence on renal dialysis; Z95.1 Presence of aortocoronary bypass graft; Z79.82 Long term (current) use of aspirin; Z95.818 Presence of other cardiac implants and grafts; Z91.048 Other nonmedicinal substance allergy status
CPT/HCPCS: 36415; 70450; 71045; 71250; 72125; 80048; 80076; 81003; 83735; 83880; 84484; 85025; 85610; 93005; 99284

== ENCOUNTER 2021-01-11 09:51 | Emergency (ER) | payer OTHER, BC ==
--- OUTSIDE RECORDS SUMMARY | 2021-01-11 10:01 | XMS REPORT | Continuity of Care Document ---
:1945 Author Organization [facility] t Address [address] [place] [address] Care Team Providers Name Role Phone Jerrell Pierce MD Primary Care Physician Yaritza Curtis Attending Clinician Unavailable Provider Attending Clinician Unavailable Brooke Espino Attending Clinician Unavailable PETER Attending Clinician Unavailable PETER Attending Clinician Unavailable Archie Kerr MD Attending Clinician Sugar SANTOS Attending Clinician Unavailable Jignesh Arvizu MD Attending Clinician Obi King DO Attending Clinician Dickson MOSQUERA Attending Clinician Ame Attending Clinician eBar Graham MD Attending Clinician Pierre York MD Attending Clinician Lisa Pedraza Attending Clinician LISA HENSON Attending Clinician Unavailable Sahil Mosley MD Attending Clinician Yaritza Curtis Admitting Clinician Unavailable Madhu VILLAFUERTE Admitting Clinician Unavailable Brooke Espino Admitting Clinician Unavailable Physician, Primary or Family Admitting Clinician Unavailrashmi SCOTTRUMJEFF Admitting Clinician Unavailable SHERLYN Admitting Clinician Unavailable Payers Payer Name Policy Type Policy Effective Date Expiration Date Sour ce Number MEDICAREMEDICARE PART [id number] 2010 [address] [facility] A AND 00:00:00 Hospital [id number][place] 2010 Sathya quintanilla MEDICARE 4 00:00:00 Hospital [id number] [phone] mercial Problems Condition Condition Condition Status Onset [...] Active 2019-02 [facility]or knee knee 0-10 [place] replacemen replacemen 00:00: of t, total, t, total, 00 Medi sky bilateral bilateral e 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 Added automatic ally from request for surgery [id number] End stage End stage Disease Active Met [facility] renal renal 03-05 st disease on disease on 00:00: Ho spita dialysis dialysis 00 l Impaired Impaired Disease Active 2018-02 [facility] fasting fasting 1-17 [place] glucose glucose 00:00: of 00 Medicin e Urinary Urinary Disease Active 2018-02 [facility] frequency frequency 1-17 Natan ege 00:00: of 00 Medicin e Chronic Chronic Disease Active 2018-02 [facility]i disease disease 0-09 st anemia anemia 00:00: Hospita 00 l Chronic Chronic Disease Active 2018-02 [facility] kidney kidney 0-09 disease, disease, 00:00: Hospit a stage IV stage IV 00 l (severe) (severe) Arthritis Arthritis Disease Active 2017-02 Lane taylor of knee, of knee, 2 Colleg e left left 00:00: of 00 Medicin e 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 [facility] taylor knee knee 03-24 College replacemen replacemen 00:00: of t, t, 00 Medicin bilateral bilateral e Anemia, Anemia, Disease Active 2017-02 [facility]i unspecifie unspecifie 02-23 st d d 00:00: Hospita 00 l Chronic Chronic Disease Active [facility] renal renal 6 [place] disease, disease, 00:00: of stage 4, stage 4, 00 Medici n severely severely e decreased decreased glomerular glomerular filtration filtration rate (GFR) rate (GFR) between between 15-29 15-29 mL/min/1.7 mL/min/1.7 3 square 3 square meter meter (HCCode) (HCCode) Atheroscle Atheroscle Disease Active Overview : [facility] rosis of rosis of [employer] [place] 00:00: standing of coronary coronary 00 disease, Medi sky artery of artery of stable e [place] with heart heart current without without RxLast angina angina Assessmen pectoris pectoris t & Plan: Continue current Rx and control all risk factors including weight Essential Essential Disease Active Overview: [facility] hypertensi hypertensi 8- Stable Co llege on on 00:00: and of 00 sometimes Medicin BP drops e too muchLast Assessmen t & Plan: Continue current Rx and control all risk factors including weight Heart Heart Disease Active Overview: [facility] murmur murmur - A College 00:00: systolic of 00 murmur Medicin Grade 2/6 e over LSB , not radiating in any direction but audible over most of [place] l areaLast Assessmen t & Plan: Continue current Rx and control all risk factors including weight S/P S/P Disease Active Overview: [facility] angioplast angioplast 8- In 2009 C ollege y with y with 00:00: he had A of stent stent 00 stent Medicin deployed e in proximal RCA andCx had only Angioplas ty [facility] t & Plan: Continue current Rx and control all risk factors including weight H/O H/O Disease Active Overview: [facility] unilateral unilateral 09-23 He had Co llege nephrectom nephrectom 00:00: nephrecto of y y 00 my long Medicin time ago e and the other kidney is weakLast Assessmen t & Plan: Monitor closely Rx and control all risk factors including weight Dyslipidem Dyslipidem Disease Active Overview : [facility] ia ia 09-23 Last year College 00:00: they were of 00 not Medicin perfectCu e rrent Labs pendingLa [facility] t & Plan: Continue current Rx and control all risk factors including weight. Lab results pending Arthritis Arthritis Disease Active Overview: [facility] of knee, of knee, 09-23 He has Colleg e right right 00:00: severe of 00 arthritis Medicin with e joint replaceme nt and now has infection for which he is using correction infection Antibioti c [facility] t & Plan: Continue current Rx and control all risk factors including weight Infection Infection Disease Active Met hodi of of 5-31 st prosthetic prosthetic 00:00: Ho spita right knee right knee 00 l joint joint Fever Fever Disease Active [facility] Mechanical [...] HYPERTROPH Condition Active 2012-022014-02-18 Memoria Y PROSTATE - 10:35:00 l W/UR OBST 00:00: Moro & OTH LUTS HYPERTROPH 00 Y PROSTATE W/UR OBST & OTH LUTS Active 01/23/2013 Condition 5 [facility] DYSLIPIDEM Condition Active 2014-02-18 Memoria IA 10:35:00 l Moro DYSLIPIDEM IA Active Condition 02/18/2014 Medical Group GERD Condition Active 2014-02-18 Mem oria 10:35:00 l GERD Moro Active Condition 02/18/2014 Medical Group ASCVD Condition Active 2014-02-18 Mem oria 10:35:00 l ASCVD Moro Active Condition 02/18/2014 Medical Group CAD Condition Active 2014-02-18 Mem oria 10:35:00 l CAD Jimmy Active Condition 02/18/2014 [facility] Group CHRONIC Condition Active 2014-02-18 Me moria KIDNEY 10:35:00 l DISEASE CHRONIC [place] n STAGE III KIDNEY (MODERATE) DISEASE STAGE III (MODERATE) Active Condition 02/18/2014 Medical Group HYPERTENSI Condition Active 2014-02-18 Memoria ON 10:35:00 l [place] HYPERTENSI ON Active Condition 02/18/2014 [facility] Group Allergies, Adverse Reactions, Alerts Allergy Allergy Status Severity Reaction(s) Onset Inactive Treating Comm ents Source Name Type Date Date Clinician No Known DA Active U 2020-0 [facility] [place] [facility] 00:[facility]: d 00 [facility] No Known DA Active U 2020-0 [facility] Allergie -02 [place] s 00:00: d 00 [facility] Iodine FA Active [place] DIARRHEA 2020-0 [facility] and 05-13 [place] Iodide 00:00: d Containi 00 [facility] Produc shellfis FA Active SV SWELLING 2020-0 [facility] h - [place] derived 00:00: d 00 [facility] Iodine FA Active WA 2020-0 [facility] and 05-13 Clear Iodide 00:00: [place] Containi 00 [facility] shellfis FA Active SV 2020-0 [facility] h 05-13 Clear derived 00:00: [place] 00 [facility] PINICILL DA Active WA ITCHING 2020-0 [facility] IN - Clear 00:00: [place] 00 [facility] Iodine Propensi Active Rash 2020-0 Univers ty to 9-30 ity of adverse 00:00: [place] reaction 00 [facility] Penicill Propensi Active Anaphylaxis 2020-0 U nivers ins ty to 9-30 ity of adverse 00:00: [place] reaction 00 [facility] IODINE DRUG Active Rash 2020-0 Univers INGREDI 9-30 ity of 00:00: [place] 00 [facility] PENICILL Drug Active Anaphylaxis 2019- Uni vers INS Class 9-30 ity of 00:00: [place] [facility] SHELLFIS DRUG Active Diarrhea 2019-0 Univer s H INGREDI - ity of DERIVED 00:00: [place] [facility] Shellfis Propensi Active Nausea 2019- Univer s h ty to and/or 11-10 ity of Derived adverse Vomiting 00:00: [place] reaction 00 Medical s Branch Penicill Propensi Active 2017-02 [facility] ins ty to 2-10 College adverse 00:00: of reaction 00 Medicin s to e drug Fish-Polo Propensi Active Moderate Bayl or ived ty to 8-13 College Products adverse 00:00: of reaction 00 Medicin [...] adverse 00:00: Medical reaction 00 Center s Iodine Propensi Active Rash 2015-02 Methodi ty to 0-20 st adverse 00:00: Hospita reaction 00 l s to drug Penicill Propensi Active Rash 2015-02 unknown Metho di ins ty to 0-20 st adverse 00:00: Hospita reaction 00 l s to drug Atorvast Propensi Active Armond atin ty to [...] Stop Date Source Natural father Heart disease [facility] Natural mother COPD [facility] Social History Social Habit Start Date Stop Date Quantity Comments Source Sex Assigned At [facility] llege of Medicine Exposure to Unable to assess Univers ity of SARS-CoV-2 [facility] (event) Branch Tobacco use and 2019-11-19 2019-11-19 Never used [facility] llege of exposure 00:00:00 00:00:00 Medicine Alcohol intake 2019-11-19 2019-11-19 Current [facility] lege of 00:00:00 00:00:00 non-drinker of Medicine alcohol (finding) Smoking Status Start Date Stop Date Source Never smoker [facility] o f Medicine Unknown if ever smoked [facility] Medical [place] Medications Ordered Filled Start Stop Current Ordering Indication Dosage Frequency Signature Comments Components Source Medication Medication Date Date Medication? Clinician (SIG) Name Name gabapentin 2020- No 100mg Q.5D Take 100 M ethodi (NEURONTIN) 03-26 02-[address] 100 mg 17:35: [...] 100mg QD Take 100 Me thodi (DESYREL) 03-26 02-[address] 100 MG 17:35: 00:00 mouth Hospita tablet 37 :00 nightly. l colesevelam Yes Take by Met hodi (WELCHOL) 2-[address] 3.75 gram 17:35: Welchol Hospi ta powder in 31 (ONLY) l packet Take 2 - 3.75 gram packets per day after AM & PM FLUTICASONE 0 Yes Q.5D into each M ethodi PROPIONATE 2-[address] NASL 17:35: (two) Hospita 31 times a l day. [place] twice daily diphenhydrA Yes 25mg Take 25 [...] 31 (two) l (PRESERVISI times a ON day. ORAL) metoprolol 2020- No 25mg Q.5D Take 1 [...] QD Take 1 Method i (AMBIEN) 5 03-25- tablet (5 st MG tablet 00:00: 04:59 mg total) Ho spita 00 :00 by mouth l nightly for 30 days. Multiple 2019-02 Yes Qd Armond Vitamins-Mi 0-08 College nerals (EYE 16:05: of VITAMINS 09 Medicin OR) e Tamsulosin 2019-02 Yes 4mg 4 mg Armond HCl 0.4 MG 0-08 daily. Qd Natan [...] zolpidem 2019-02 Yes 10mg Take [address]aylor (AMBIEN) 5 0-08 by mouth Colle [...] qd Bayl or 500 MG CPCR 011-18 [place] 16:03: 00:00 of 53 :00 Medicin e Colesevelam Yes TAKE Lane taylor HCl 3.75 g 11-03 DIRECTED Colle ge PACK 00:00: TWICE of 00 DAILY Medicin e sulfamethox 2020- No 1{tbl} QD Take 1 M ethodi azole-trime 11-[address] thoprim 00:00: 00:00 mouth Hospita (Bactrim) 00 :00 daily. l 400-80 mg per tablet sulfamethox 2019- No TAKE ONE M ethodi azole-trime 08-[address] thoprim 00:00: 00:00 MOUTH Hospita (BACTRIM 00 :00 DAILY l DS) 800-160 mg per tablet metoprolol Yes TAKE ONE Lane taylor (LOPRESSOR) 1-24 TABLET BY Col lege 50 MG 00:00: MOUTH of tablet 00 TWICE A Medicin DAY e clopidogrel 2018-02 Yes TAKE ONE Ba ylor (PLAVIX) 75 2-09 TABLET BY Col lege MG Tablet 00:00: MOUTH of 00 DAILY Medicin e Nisoldipine 2018-02 2020- No TAKE ONE B aylor 34 MG TB24 -13 10-08 TABLET BY Col lege 00:00: 00:00 MOUTH of 00 :00 DAILY Medicin e COLESEVELAM 2016-02 Yes 3.75g Take 3.[address] HCL 2-15 g by mouth [facility] - (WELCHOL 17:11: 2 (two) Medica l ORAL) 46 times Center daily with breakfast and dinner . coenzyme 2016-02 Yes [address] [facility] Q10 100 mg 2-15 [facility] - Chew 17:11: [address] niacin 500 2016-02 Yes [address] [facility] MG CR 2-15 [facility] - capsule 17:11: [address] zolpidem 2016-02 Yes 10mg Take [address] (AMBIEN) 10 2-15 by mouth Luke s - mg tablet 17:10: every Medical 17 night as Center needed for Insomnia. DULoxetine 2016-02 Yes 60mg QD Take [address] (CYMBALTA) 2-15 by mouth [facility] - 60 MG 17:10: daily. Medical capsule 17 [place] NIFEdipine 2016-02 Yes 60mg QD Take [address] (PROCARDIA- 2-15 by mouth Luke s - XL) 60 MG 17:10: daily. Medica l (OSM) 24 hr 17 [place] tablet losartan 2020- No TAKE ONE Bayl or (COZAAR) 5-21 10-08 TABLET BY Colle ge 100 MG 00:00: 00:00 MOUTH of tablet 00 :00 DAILY Medicin e tamsulosin 2014- Yes .4mg 0.[address] (FLOMAX) 5-23 [facility] - 0.4 mg Cp24 00:00: Medica l 24 hr 00 Center capsule pantoprazol 2014-0 Yes 40mg QD Take 40 mg Methodi e 5-[address] (PROTONIX) 00:00: every Hospit a 40 MG EC 00 morning. l tablet pantoprazol 2014-0 Yes QD daily . [facility] e 5-22 [facility] - (PROTONIX) 00:00: Medical 40 MG 00 Center tablet clopidogrel 2014-0 Yes QD daily . [...] MG 00:00: daily . Medical tablet 00 Center nisoldipine Yes 34mg QD 34 mg [facility] t (SULAR) 34 5-12 daily . [facility] - MG 24 hr 00:00: Medical tablet 00 [place] metoprolol 2021- No 25mg QD Take 25 mg Methodi tartrate 5-12 -[address] (LOPRESSOR) 00:00: 00:00 daily. Hos imelda 50 MG 00 :00 l tablet CLOPIDOGREL Yes TAKE 1 Andres dora BISULFATE 1-08 TABLET BY l 75 MG TABS 10:35: MOUTH [place] n 00 DAILY NISOLDIPINE Yes TAKE 1 Andres dora ER 34 MG 1-08 TABLET BY l [id number] 10:35: MOUTH Jimmy 00 DAILY LOSARTAN Yes TAKE 1 Memoria POTASSIUM 1-08 TABLET BY l 100 MG TABS 10:35: MOUTH Mary nn 00 DAILY CYMBALTA 60 Yes TAKE 1 Andres dora MG CPEP 1-08 TABLET BY l 10:35: MOUTH Jimmy 00 DAILY PANTOPRAZOL Yes TAKE 1 Andres dora E SODIUM 40 1-08 TABLET BY l MG TBEC 10:35: MOUTH Moro 00 DAILY CLOPIDOGREL Yes TAKE 1 Andres dora BISULFATE 1-08 TABLET BY l 75 MG TABS 10:35: MOUTH [place] n 00 DAILY NISOLDIPINE Yes TAKE 1 Andres dora ER 34 MG 1-08 TABLET BY l [id number] 10:35: MOUTH Moro 00 DAILY LOSARTAN Yes TAKE 1 Memoria POTASSIUM 1-08 TABLET BY l 100 MG TABS 10:35: MOUTH Mary nn 00 DAILY CYMBALTA 60 Yes TAKE 1 Andres dora MG CPEP 1-08 TABLET BY l 10:35: MOUTH [place] 00 DAILY PANTOPRAZOL Yes TAKE 1 Andres dora E SODIUM 40 1-08 TABLET BY l MG TBEC 10:35: MOUTH Jimmy 00 DAILY WELCHOL Yes 2 packs Memoria 3.75 GM 1-08 per day AM l PACK 00:00: & PM Jimmy 00 NIACIN 500 2014-0 Yes 1 tab Memori a MG TABS 1-08 daily l 00:00: PAPAYA 2014-0 Yes 2 tablet Memoria ENZYME TABS 1-08 after main l 00:00: meals METOPROLOL 2014-0 Yes 2 tab AM & M emoria [...] TABLET BY l MG TABS 14:45: MOUTH [place] DAILY LOSARTAN 2012-02 Yes TAKE 1 Memoria POTASSIUM 2-13 TABLET BY l 100 MG TABS 14:45: MOUTH Mary nn DAILY WELCHOL 2012-02 Yes TAKE 1 Memoria 3.75 GM 2-13 TABLET BY l PACK 14:45: MOUTH Ijmmy DAILY CYMBALTA 60 2012-02 Yes TAKE 1 Andres dora MG CPEP 2-13 TABLET BY l 14:45: MOUTH Jimmy DAILY PANTOPRAZOL 2012-02 Yes TAKE 1 Andres dora E SODIUM 40 2-13 TABLET BY l MG TBEC 14:45: MOUTH Jimmy DAILY METOPROLOL 2012-02 Yes TAKE 1 Memor ia TARTRATE 50 2-13 TABLET BY l MG TABS 14:45: MOUTH [place] DAILY LOSARTAN 2012-02 Yes TAKE 1 Memoria POTASSIUM 2-13 TABLET BY l 100 MG TABS 14:45: MOUTH Mary nn DAILY WELCHOL 2012-02 Yes TAKE 1 Memoria 3.75 GM 2-13 TABLET BY l PACK 14:45: MOUTH Jimmy 00 DAILY CYMBALTA 60 2012-02 Yes TAKE 1 Andres dora MG CPEP 2-13 TABLET BY l 14:45: MOUTH [place] DAILY PANTOPRAZOL 2012-02 Yes TAKE 1 Andres dora E SODIUM 40 2-13 TABLET BY l MG TBEC 14:45: MOUTH Jimmy 00 DAILY PLAVIX 75 2012-02 No TAKE 1 Memori a MG TABS 2-13 TABLET BY l 00:00: MOUTH Jimmy 00 DAILY OCUVITE EYE 2012-02 Yes Memori a + MULTI 2-13 l TABS 00:00: Moro 00 COQ10 CAPS 2012-02 Yes Memoria 2-13 l 00:00: Jimmy 00 ASPIRIN 81 2012-02 Yes Memoria MG TABS 2-13 l 00:00: Jimmy 00 FLOMAX 0.4 2012-02 Yes one every Me moria MG CAPS 2-13 evening. l 00:00: Moro 00 LUNESTA 3 2012-02 Yes TAKE 1 Memori a MG TABS 2-13 TABLET BY l 00:00: MOUTH Jimmy DAILY LUNESTA 3 2012-02 Yes TAKE 1 Memori a MG TABS 2-13 TABLET BY l 00:00: MOUTH Moro DAILY FLOMAX 0.4 2012-02 No one every Me moria MG CAPS 2-13 evening. l 00:00: Jimmy 00 PLAVIX 75 2012-02 No TAKE 1 Memori a MG TABS 2-13 TABLET BY l 00:00: MOUTH Jimmy 00 DAILY OCUVITE EYE 2012-02 Yes Memori a + MULTI 2-13 l TABS 00:00: Jimmy 00 COQ10 CAPS 2012-02 Yes Memoria 2-13 l 00:00: Moro 00 ASPIRIN 81 2012-02 Yes Memoria MG TABS 2-13 l 00:00: Jimmy 00 FLOMAX 0.4 2012-02 Yes one every Me moria MG CAPS 2-13 evening. l 00:00: Moro 00 LUNESTA 3 2012-02 Yes TAKE 1 Memori a MG TABS 2-13 TABLET BY l 00:00: MOUTH Moro DAILY LUNESTA 3 2012-02 Yes TAKE 1 [...] (Flu 14:23:57 Jimmy Vax) has been administered influenza 2010-10-16 Completed [facility] immunization (Flu 14:23:57 Moro Vax) has been administered pneumococcal 2007-06-14 Completed [facility] immunization 14:23:57 Moro administered pneumococcal 2007-06-14 Completed [facility] immunization 14:23:57 Jimmy administered hepatitis B vaccine 2006-04-11 Completed Memor ial #3 15:23:57 Moro hepatitis B vaccine 2006-04-11 Completed Memor ial #3 15:23:57 Moro chicken pox 2006-03-20 Completed Memorial immunization #1 15:23:57 Moro chicken pox 2006-03-20 Completed Memorial immunization #1 15:23:57 Moro hepatitis B vaccine 2006-03-15 Completed Memor ial #2 given 15:23:57 Jimmy hepatitis B vaccine 2006-03-15 Completed Memor ial #2 given 15:23:57 Jimmy MMR (measles, mumps, 2006-02-28 Completed Andres rial rubella) virus 15:23:57 Jimmy immunization #1 MMR (measles, mumps, 2006-02-28 Completed Andres rial rubella) virus 15:23:57 Jimmy immunization #1 hepatitis B vaccine 2006-02-25 Completed Memor ial #1 given 15:23:57 Moro hepatitis B vaccine 2006-02-25 Completed Memor ial #1 given 15:23:57 Jimmy Vital Signs Vital Name Observation Time Observation Value Comments Source Systolic blood 2019-11-19 15:57:00 146 mm[Hg] [facility] pressure Medicine Diastolic blood 2019-11-19 15:57:00 72 mm[Hg] [facility] pressure Medicine Heart rate 2019-11-19 15:57:00 91 /min [facility] C ollege of Medicine Body height 2019-11-19 15:57:00 172.7 cm [facility] C [facility] of Medicine Body weight 2019-11-19 15:57:00 83.462 kg [facility] C [facility] of Medicine BMI 2019-11-19 15:57:00 27.98 kg/m2 [facility] ollege of Medicine Systolic blood 2019-11-19 15:57:00 146 mm[Hg] [facility] Medicine Diastolic blood 2019-11-19 15:57:00 72 mm[Hg] [facility] Medicine Heart rate 2019-11-19 15:57:00 91 /min [facility] C [facility]lege of Medicine Body height 2019-11-19 15:57:00 172.7 cm [facility] C ollege of Medicine Body weight 2019-11-19 15:57:[address] [facility] ollege of Medicine BMI 2019-11-19 15:57:00 27.98 kg/m2 [facility] ollege of Medicine Systolic blood 2019-11-12 01:28:00 126 mm[Hg] Univer sity of pressure [facility] Diastolic blood 2019-11-12 01:28:00 63 mm[Hg] Unive rsity of pressure [facility] Heart rate 2019-11-12 01:28:00 84 /min Universi ty of [facility] Respiratory rate 2019-11-12 01:28:00 20 /min Univ ersity of [facility] Oxygen saturation in 2019-11-12 01:28:00 100 /min University of Arterial blood by [facility] Pulse oximetry Branch Systolic blood 2019-11-12 01:00:00 142 mm[Hg] Univer sity of pressure [facility] Diastolic blood 2019-11-12 01:00:00 71 mm[Hg] Unive rsity of pressure [facility] Heart rate 2019-11-12 01:00:00 84 /min Universi ty of [facility] Respiratory rate 2019-11-12 01:00:00 14 /min Univ ersity of [facility] Oxygen saturation in 2019-11-12 01:00:00 99 /min University of Arterial blood by [facility] Pulse oximetry Branch Body temperature 2019-11-11 22:21:00 36.61 Pat Univ ersity of [place] [facility] Body weight 2019-11-11 22:21:00 85 kg Universi ty [facility] Systolic blood 2019-11-12 01:28:00 126 mm[Hg] Univer sity of pressure [facility] Diastolic blood 2019-11-12 01:28:00 63 mm[Hg] Unive rsity of [facility] Heart rate 2019-11-12 01:28:00 84 /min Universi ty [facility] Respiratory rate 2019-11-12 01:28:00 20 /min Univ ersity of [facility] Oxygen saturation in 2019-11-12 01:28:00 100 /min University of Arterial blood by [facility] Pulse oximetry Branch Systolic blood 2019-11-12 01:00:00 142 mm[Hg] Univer sity of [facility] Diastolic blood 2019-11-12 01:00:00 71 mm[Hg] Unive rsity of [facility] Heart rate 2019-11-12 01:00:00 84 /min Universi [facility] Respiratory rate 2019-11-12 01:00:00 14 /[facility] 2019-11-12 01:00:00 99 /min University of Arterial blood by [facility] Pulse oximetry Branch Body temperature 2019-11-11 22:21:00 36.61 Pat [facility] Body weight 2019-11-11 22:21:00 85 kg [facility] Body height 2020-04-27 20:44:00 172.7 cm [facility] Body weight 2020-04-27 20:44:00 84.369 kg [facility] BMI 2020-04-27 20:44:00 28.28 kg/m2 [facility] Systolic blood 2020-03-26 14:44:51 139 mm[Hg] Method ist [facility] pressure Diastolic blood 2020-03-26 14:44:51 66 mm[Hg] [facility] pressure Heart rate 2020-03-26 14:44:51 80 /min [facility] Body temperature 2020-03-26 14:44:51 36 Pat [facility] 2020-03-26 14:44:51 19 /min [facility] Oxygen saturation in 2020-03-26 14:44:51 96 /min [facility] Arterial blood by Pulse oximetry Height 2014-02-18 15:55:42 [facility] Jimmy Weight 2014-02-18 15:55:42 [facility] Jimmy Temperature Oral (F) 2014-02-18 15:55:42 97.5 F [facility] Jimmy Heart Rate 2014-02-18 15:55:42 [facility] Jimmy Systolic (mm Hg) 2014-02-18 15:55:42 Andres rial Jimmy Diastolic (mm Hg) 2014-02-18 15:55:42 Mem orial Moro Weight 2013-01-23 19:53:21 [facility] Jimmy Temperature Oral (F) 2013-01-23 19:53:21 97.6 F [facility] Jimmy Heart Rate 2013-01-23 19:53:21 [facility] Jimmy Height 2013-01-23 19:53:21 [facility] Jimmy Systolic (mm Hg) 2013-01-23 19:53:21 Andres rial Jimmy Diastolic (mm Hg) 2013-01-23 19:53:21 Mem orial Moro Procedures Procedure Date / Time Performing Clinician Source Performed [id number] 2020-05-24 00:00:00 GRANI [facility] [id number] 2020-05-20 00:00:00 GIBJE.01 [facility] [id number] 2020-05-20 00:00:00 GIBJE.01 [facility] [id number] 2020-05-20 00:00:00 GIBJE.01 [facility] [id number] 2020-05-20 00:00:00 SEEGE [facility] [id number] 2020-05-16 00:00:00 JUSTINO.03 [facility] [id number] 2020-05-14 00:00:00 JUSTINO.03 [facility] [id number] 2020-05-11 00:00:00 ENCPL [id number] 2020-05-11 00:00:00 ENCPL [id number] 2020-05-11 00:00:00 ENCPL [id number] 2020-03-30 00:00:00 ENCCY [id number] 2020-03-30 00:00:00 ENCCY [id number] 2020-03-30 00:00:00 ENCCY [id number] 2020-03-30 00:00:00 ENCCY [id number] 2020-03-30 00:00:00 JENNIFERCY [id number] 2020-03-30 00:00:00 JENNIFERCY [id number] 2020-03-30 00:00:00 JENNIFERCY [id number] 2020-03-30 00:00:00 JENNIFERCY [id number] 2020-03-30 00:00:00 JENNIFERCY [id number] 2020-03-30 00:00:00 JENNIFERCY [id number] 2020-03-30 00:00:00 JENNIFERCY [id number] 2020-03-30 00:00:00 JENNIFERCY [id number] 2020-03-30 00:00:00 JENNIFERCY [id number] 2020-03-30 00:00:00 JENNIFERCY [id number] 2020-03-30 00:00:00 JENNIFERCY [id number] 2020-03-30 00:00:00 JENNIFERCY [id number] 2020-03-30 00:00:00 JENNIFERCY [id number] 2020-03-30 00:00:00 JENNIFERCY [id number] 2020-03-30 00:00:00 JENNIFERCY [id number] 2020-03-30 00:00:00 JENNIFERCY [id number] 2020-03-30 00:00:00 MICHELLE HC COMPLETE BLD COUNT 2020-03-25 10:45:00 [facility] Obi BASIC METABOLIC PANEL 2020-03-25 10:00:00 [facility] Obi ESTIMATED GFR 2020-03-25 10:00:00 Clint King Ho spital Obi HEMODIALYSIS 2020-03-24 22:39:[address] [facility] HC COMPLETE BLD COUNT 2020-03-24 11:00:00 [facility] W/AUTO DIFF Obi BASIC METABOLIC PANEL 2020-03-24 10:00:00 [facility] Obi ESTIMATED GFR 2020-03-24 10:00:00 Clint King Ho spital Obi US CAROTID DUPLEX 2020-03-23 18:31:05 [facility] BILATERAL BASIC METABOLIC PANEL 2020-03-23 09:20:00 [facility] Obi HC COMPLETE BLD COUNT 2020-03-23 09:20:00 [facility] W/AUTO DIFF Obi ESTIMATED GFR 2020-03-23 09:20:00 Clint King spital Obi POC GLUCOSE 2020-03-22 22:27:00 Clint King spital Obi HEMODIALYSIS 2020-03-22 22:13:20 Romy Woodson spital Tabitha ANAEROBIC CULTURE 2020-03-22 20:52:00 [facility] 2020-03-22 20:52:00 Usha Obipopeye Ferrer spital AFB STAIN 2020-03-22 20:52:00 Obi Kerr spital AEROBIC CULTURE 2020-03-22 20:52:00 Obi Kerr spital FUNGUS SMEAR 2020-03-22 20:52:00 Usha Obipopeye Ferrer spital ANAEROBIC CULTURE 2020-03-22 20:50:00 [facility] 2020-03-22 20:50:00 Usha Obipopeye Ferrer spital AFB STAIN 2020-03-22 20:50:00 Usha Obipopeye Ferrer spital AEROBIC CULTURE 2020-03-22 20:50:00 Usha Obipopeye Ferrer spital GRAM STAIN 2020-03-22 20:50:00 Obi Kerr spital SURGICAL PATHOLOGY 2020-03-22 20:30:00 [facility] REQUEST Obi AFB CULTURE 2020-03-22 19:52:00 Obi Kerr spital AFB CULTURE 2020-03-22 19:50:00 Obi Kerr spital OR FL < 1 HOUR 2020-03-22 19:30:00 Usha Obipopeye Valladares spital LA AN ELECTIVE 2020-03-22 19:25:28 Simpson, Te[facility]al [facility] ENDOTRACHEAL AIRWAY AMPUTATION, ABOVE KNEE 2020-03-22 18:47:00 UshaObi [facility] POC GLUCOSE 2020-03-22 15:07:00 Clint Kingtal Obi HC COMPLETE BLD COUNT 2020-03-22 12:45:00 [facility] TYPE AND SCREEN 2020-03-22 12:45:00 Carlos Nelson spital VANCOMYCIN LEVEL, RANDOM 2020-03-22 10:00:00 [facility] BASIC METABOLIC PANEL 2020-03-22 10:00:00 Clint King [facility] Obi ESTIMATED GFR 2020-03-22 10:00:00 Clint King spital Obi LIPID PANEL 2020-03-22 10:00:00 Bear Marieetal HEPATITIS B SURFACE 2020-03-21 14:22:00 Kumar Ayala [facility] ANTIGEN PROTHROMBIN TIME WITH INR 2020-03-21 12:15:00 [facility] PARTIAL THROMBOPLASTIN 2020-03-21 12:15:00 [facility] TIME (PTT) BASIC METABOLIC PANEL 2020-03-21 12:15:00 [facility] CBC WITH PLATELET AND 2020-03-21 12:15:00 [facility] DIFFERENTIAL VANCOMYCIN LEVEL, RANDOM 2020-03-21 12:15:00 [facility] ESTIMATED GFR 2020-03-21 12:15:00 [facility] 2020-03-21 06:05:17 Kumar Ayala H ospital VANCOMYCIN LEVEL, RANDOM 2020-03-20 20:54:00 [facility] BASIC METABOLIC PANEL 2020-03-20 11:30:00 Clint King [facility] Obi ESTIMATED GFR 2020-03-20 11:30:00 Clint King spital Obi TTE COMPLETE, W CONTRAST, 2020-03-19 18:00:00 Juan Mickey noriega [facility] W DOPPLER ([id number]) HC COMPLETE BLD COUNT 2020-03-19 10:14:00 [facility] W/AUTO DIFF MRI KNEE WO CONTRAST 2020-03-19 09:38:00 [place] [facility] RIGHT MRI THIGH WO CONTRAST 2020-03-19 08:52:00 [place]ownMickey Ryan [facility] RIGHT MRI LOWER EXTREMITY WO 2020-03-19 08:07:00 [place] [facility] CONTRAST RIGHT BASIC METABOLIC PANEL 2020-03-19 07:01:00 [facility] ESTIMATED GFR 2020-03-19 07:01:00 [facility] spital LACTIC ACID LEVEL 2020-03-19 07:01:00 [facility] LACTIC ACID LEVEL, SEPSIS 2020-03-19 01:46:00 [facility] - NOW AND REPEAT 2X EVERY [place] 3 HOURS BLOOD CULTURE, AEROBIC & 2020-03-18 23:22:00 [facility] ANAEROBIC [place] COVID-19 QUALITATIVE 2020-03-18 23:22:00 [facility] RT-PCR [place] BLOOD CULTURE, AEROBIC & 2020-03-18 23:16:00 [facility] ANAEROBIC [place] HC COMPLETE BLD COUNT 2020-03-18 23:16:00 [facility] W/AUTO DIFF [place] PROTHROMBIN TIME WITH INR 2020-03-18 23:16:00 [facility] [place] PARTIAL THROMBOPLASTIN 2020-03-18 23:16:00 [facility] TIME (PTT) [place] TYPE AND SCREEN 2020-03-18 23:16:00 [facility] spital [place] COMPREHENSIVE METABOLIC 2020-03-18 23:16:00 [facility] PANEL [place] LACTIC ACID LEVEL, SEPSIS 2020-03-18 23:16:00 [facility] - NOW AND REPEAT 2X EVERY [place] 3 HOURS C-REACTIVE PROTEIN 2020-03-18 23:16:00 [facility] [place] SEDIMENTATION RATE 2020-03-18 23:16:00 [facility] [place] ESTIMATED GFR 2020-03-18 23:16:00 [facility] spital [place] URINE CULTURE 2020-03-18 23:10:00 [facility] spital [place] URINALYSIS SCREEN AND 2020-03-18 23:10:00 [facility] MICROSCOPY, WITH REFLEX [place] TO CULTURE XR KNEE 1 OR 2 VW RIGHT 2020-03-18 23:03:39 [facility] [place] XR TIBIA FIBULA 2 VW 2020-03-18 23:03:04 [facility] RIGHT [place] URINALYSIS 2019-11-11 23:48:00 Nelia [facility] XR CHEST 1 VW 2019-11-11 23:02:37 Nelia [facility] MAGNESIUM 2019-11-11 22:43:00 Nelia [facility] COMP. METABOLIC PANEL 2019-11-11 22:43:00 Wanda Henson [facility] ([id number]) [facility] CBC WITH DIFF 2019-11-11 22:43:00 [facility] TROPONIN I 2019-11-11 22:43:00 [facility] EKG-12 LEAD 2019-11-11 22:40:13 [facility] Plan of Care Planned Activity Planned Date Details Comments Source Future Scheduled ELECTROCARDIOGRAM [facility] Test COMPLETE [code = 75266] of M edicine Future Scheduled COLON CANCER SCREENING: [facility] Test COLONOSCOPY [code = of Medic ine COLON CANCER SCREENING: COLONOSCOPY] Future Scheduled TETANUS SHOT (ADULT) [facility] Test [code = TETANUS SHOT of Medi cine (ADULT)] Future Scheduled BMI FOLLOW UP PLAN [code [facility] Test = BMI FOLLOW UP PLAN] of Med icine Future Scheduled HEPATITIS C SCREENING [employer] Test [code = HEPATITIS C of Medic ine SCREENING] Future Scheduled ZOSTER VACCINE (1 of 2) [facility] Test [code = ZOSTER VACCINE of Me dicine (1 of 2)] Future Scheduled FALL SCREEN [code = FALL [facility] Test SCREEN] of Medicine Future Scheduled PNEUMOVAX >=65 (PPSV23) [facility] Test [code = PNEUMOVAX >=65 of Me dicine (PPSV23)] Future Scheduled [facility]IC[facility] AW[facility] ([facility] [code = MEDICARE AWV of Medi cine (Initial)] Future Scheduled FLU VACCINE > 6 MONTHS [facility] [code = FLU VACCINE > 6 of M edicine MONTHS] Future Scheduled 65+ PNEUMOCOCCAL VACCINE [facility] Test (1 of 4 - PCV13) [code = Hos pital 65+ PNEUMOCOCCAL VACCINE (1 of 4 - PCV13)] Future Scheduled DIABETES: RETINAL EYE [facility] EXAM [code = DIABETES: Hospi sean RETINAL EYE EXAM] Future Scheduled DIABETIC FOOT EXAM [code [facility] Test = DIABETIC FOOT EXAM] Hospit al Future Scheduled COVID-19 VACCINE (1) Met [facility] Test [code = COVID-19 VACCINE Hos pital (1)] Future Scheduled COLONOSCOPY SCREENING [facility] Test [code = COLONOSCOPY Hospital SCREENING] Future Scheduled SHINGLES VACCINES (#1) M ethodist Test [code = SHINGLES Hospital VACCINES (#1)] Future Scheduled INFLUENZA VACCINE [code [facility] Test = INFLUENZA VACCINE] Hospita l Future Scheduled EVENT MONITOR [code = 1 Occur[facility]] starting of Medicine 11/19/2019 until 02/17/2020 Encounters Start End Encounter Admission Attending Care Care Encounter Source Date/Time Date/Time Type Type Clinicians Facility Department ID 2020 Inpatient KENDRA Curtis [id number] [facility] 10:29:00 Sekou 19 [facility] 2020 Outpatient Viviane, KEVIN KEVIN [id number] [facility] 10:29:00 Undefined 34 [facility] 2020 Inpatient KENDRA Espino [id number] [facility] 10:28:59 Lambert 61 [facility] 2020-06-03 Inpatient KENDRA CurtisCL [id number] [facility] 07:15:00 Sekou [id number] [facility] 2020-05-19 Inpatient UR Kirsten, HCACL REHA [id number] [facility] 18:00:00 Sekou [id number] [facility] 2020-05-13 Inpatient HCACL DIGNA [id number] [facility] 01:15:00 [id number] [facility] 2020-12-07 2020-12-07 Outpatient [facility] [id number] [place] 00:00:00 00:00:00 HEAVENLY [address] 2020-10-01 2020-10-06 Inpatient [facility], [facility] 012 [id number] [place] 00:00:00 00:00:00 KUNLOS [address] 2020-05-12 2020-05-12 Outpatient TORI, HCAPM RADI [id number] [facility] 21:45:00 21:45:00 ELISHA [id number] [facility] 2020-04-27 2020-04-27 Telemedici Obi Kerr 1.2.840.1 [id number] Methodi 15:36:30 16:10:[address] 3.430.2.7 Hospit a .3.166364 l .8 2020-04-27 2020-04-27 Travel 1.2.840.1 1.2.943.093 4589 125285 Methodi 00:00:00 00:00:[address] 3.430.2.7 0.2.7.3.698 Ho spita .3.921514 084.8 l .8 2020-04-26 2020-04-26 Travel 1.2.840.1 1.2.368.325 4596 121961 Methodi 00:00:00 00:00:[address] 3.430.2.7 0.2.7.3.698 Ho spita .3.482830 084.8 l .8 2020-04-13 2020-04-18 [facility] 1.2.840.1 [id number] Methodi 11:45:02 00:23:05 Visit Archie 21517.1.[address] 3.430.2.7 Hospit a .3.173140 l .8 2020-04-13 2020-04-13 Travel 1.2.840.1 1.2.160.457 4940 069217 Methodi 00:00:00 00:00:[address] 3.430.2.7 0.2.7.3.698 Ho spita .3.219565 084.8 l .8 2020-04-05 2020-04-05 Abstract Sugar 1.2.840.1 [id number] 379 2548128 Methodi 00:00:00 00:00:[address] 3.430.2.7 Hospit a .3.097415 l .8 2020-04-04 2020-04-04 [facility] 1.2.840.1 [id number] 000 [id number] Methodi 13:34:38 14:35:21 Visit Archie 02066.1.[address] 3.430.2.7 Hospit a .3.432980 l .8 2020-04-04 2020-04-04 Travel 1.2.840.1 1.2.282.856 9936 634763 Methodi 00:00:00 00:00:[address] 3.430.2.7 0.2.7.3.698 Ho spita .3.271725 084.8 l .8 2020-04-01 2020-04-01 Orders Sugar 1.2.840.1 [id number] 2099 776513 Methodi 00:00:00 00:00:00 Only Emilee [address]44.1.[address] 3.430.2.7 Hospit a .3.355906 l .8 2020-04-01 2020-04-01 Travel 1.2.840.1 1.2.653.514 4742 197431 Methodi 00:00:00 00:00:[address] 3.430.2.7 0.2.7.3.698 Ho spita .3.226613 084.8 l .8 2020-03-18 2020-03-26 [facility] Suzanne Arvizukant 1.2.840 .1 [id number] Methodi 15:51:00 11:35:00 Encounter Clint King 23848.1.[address] Dickson, Umar 3.430.2.7 Hos imelda .3.800157 l .8 2020-03-22 2020-03-22 Anesthesia Ame Liu 1.2.840.1 [id number] Methodi 12:47:00 16:31:00 Event Clint Graham 73343.1.[address] 3.430.2.7 Hospit a .3.372036 l .8 2020-03-22 2020-03-22 Surgery Obi Kerr 1.2.840.1 [id number] 311 [id number] Methodi 12:53:00 14:38:[address] 3.430.2.7 Hospit a .3.833117 l .8 2019-11-19 2019-11-19 Office CHELSEA York 1.2.840.[id number] [place] [address] 10:50:53 15:23:52 Visit Oswald S AMBULATOR 350.1.13.21 College Y 0.2.7.2.686 of 038.6862018 [facility] 300 e 2019-11-19 2019-11-19 Office CHELSEA York 1.2.840.114 006203 10:50:53 15:23:52 Visit Oswald S AMBULATOR 350.1.13.21 Y 0.2.7.2.686 [id number] 300 2019-11-11 2019-11-11 Emergency Wanda Henson [facility] 1.2.840.114 78 [id number] Univers 17:16:00 22:21:00 Lisa Pineda 350.1.13.10 i ty of [place] 4.2.7.2.686 [facility] 144.7111957 [address] 2019-11-11 2019-11-11 Emergency Wanda Henson [facility] 1.2.840.114 78 596469 17:16:00 22:21:00 Lisa Pineda 350.1.13.10 [place] 4.2.7.2.686 [place] 850.8721831 [facility] 2019-11-11 2019-11-11 Emergency X Wanda HENSON [facility] ERT [id number] 2512 Univers 17:16:00 17:16:00 ity [facility] 2019-11-03 2019-11-03 Telephone Melany, 1.2.840.1 [id number] 2100 479352 Methodi 09:01:34 09:25:16 Consult Liss Baxter 43677.1.[address] 3.430.2.7 Hospit a .3.978884 l .8 2014-02-18 2014-02-18 Office [facility] [id number] 141 [place] 00:00:00 00:00:00 Visit artie Marquez 403711 [facility] 2014-02-18 2014-02-18 Lab Report [facility] 1736 109893 Memoria 00:00:00 00:00:00 artie Marquez 007800 madhu [facility] 2013-01-23 2013-01-23 Lab Report [facility] 1702 189757 Memoria 00:00:00 00:00:00 artie Marquez 334090 [facility] Results Test Description Test Time Test Comments Results Result [facility] e Comments - XR CHEST 1 V 2020-05-31 14:08:00 [facility] 1945 Sex: M FAX: Sekou Jeffery [phone] [place]: St: ADM Name: DARIEN HUYNH [facility] : 1945 Age/S: 74/M [address] [place] [address] Blvd Unit #: [id number] Loc: [address] [address] Phys: Sekou Curtis MD Acct: [id number] Dis Date: Status: ADM IN PHONE #: [phone] Exam Date: 05/31/20201405 FAX #: [phone] Reason: HD protocol, need to make sure no TB EXAMS: CPT CODE: [id number] XR CHEST 1 V 86405 EXAM: Single view AP chest. EXAM DATE: [...] M.D. CC: Sekou Curtis Technologist: RT Marques(Artie) Porfirio Date/Time/By: 05/31/2020 (1407) : By: Enedelia Orig Print D/T: S: 05/31/2020 (1756) PAGE 1 Signed Report - XR CHEST 1 V 2020-05-31 14:08:00 [facility] 1945 Sex: M FAX: Sekou Jeffery [phone] [place]: St: DIS Name: DARIEN HUYNH [facility] [place] : 1945 Age/S: 74/M [address] [place] [address] Blvd Unit #: [id number] Loc: [place] [address] Phys: Sekou Curtis MD Acct: [id number] Dis Date: Status: DIS IN PHONE #: [phone] Exam Date: 05/31/2020 1406 FAX #: [phone] Reason: HD protocol, need to make sure no TB EXAMS: CPT CODE: [id number] XR CHEST 1 V 03195 EXAM: Single view AP chest. EXAM DATE: [...] Technologist: Jude Barbour RT(R) Trnscrd Date/Time/By: 05/31/2020 (5940) : By: Enedelia Orig Print D/T: S: 05/31/2020 (2579) PAGE 1 Signed Report BASIC METABOLIC PANEL [...] code = CA) 8.5 mg/dL 8.0-10.5 N [id number] 05:15:00 Test Item Value Reference Range Interpretation Comments ALBUMIN (test code = ALB) 3.10 g/dL 3.4-5.0 L [id number] 05:15:00 Test Item Value Reference Range Interpretation Comments PREALBUMIN (test code = PREALB) 27.0 mg/dL 16.0-40.0 N [id number] 23:17:00 Test Item Value Reference Range Interpretation Comments GLUBED (test code = 95 MG/DL 70-110 N Performe d by certified GLUBED) 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 2 mg/dL BASIC METABOLIC [id number] 07:53:00 Test Item Value Reference Range Interpretation [...] 8.2 mg/dL 8.0-10.5 N CA) BASIC METABOLIC [id number] 04:28:00 Test Item Value Reference Range Interpretation [...] 9.3 mg/dL 8.0-10.5 N CA) CBC W/AUTO [id number] 08:31:00 Test Item Value Reference Range Interpretation [...] (test code NO = MDIFF) BASIC METABOLIC [id number] 07:59:00 Test Item Value Reference Range Interpretation [...] CA) - USG NDL PLACEMENT (Bxg/Asp)2020-05-24 15:12:00 [facility] : 1945 Sex: M Name: [facility] 1945 Age/S: 74 / M [address] [place] [address] Unit #: [id number] [place]: [place] [address] Phys: Albaro Sheikhnie NPAcct: [id number] Dis Date: Status: ADM IN PHONE #:[phone] Exam Date: 05/24/2020 1434 FAX #: [phone] Reason: right aka fluid collection EXAMS: CPT CODE: [id number] USG NDL PLACEMENT (Bxg/Asp) 85433 PROCEDURE: Ultrasound-guided right knee stump fluid collection. [...] NP Technologist: Rosemarie Ayon Trnscb Date/Time: 05/24/2020 (1512) [email or web address] Orig Print D/T: S: 05/24/2020 (1515) Probe: PAGE 1 Signed Report- USG NDL PLACEMENT (Bxg/Asp)2020-05-24 15:12:00 [facility] : 1945 Sex: M Name: DARIEN HUYNH [facility] [place] : 1945 Age/S: 74 / M [address] [place] [address] Bl Unit #: [id number] Loc: [place] [address] Phys: Jonathan Sheikh NPAcct: [id number] Dis Date: Status: DIS IN PHONE #:[phone] Exam Date: 05/24/2020 1434 FAX #: [phone] Reason: right aka fluid collection EXAMS: CPT CODE: [id number] USG NDL PLACEMENT (Bxg/Asp) 84221 PROCEDURE: Ultrasound-guided right knee stump fluid collection. [...] by:ZIA Marin Supervised and Electronically signed by: Maharshi Arvizu, DO FINDINGS: Total volume of 15 mL of blood-tinged fluid was removed. IMPRESSION: 1. Technically successful ultrasound-guided aspiration of a right knee stump collection. at 1512 Reported and signed by: Paloma Arvizu D.O. CC: Sekou Curtis; Jonathan Sheikh NP Technologist: Rosemarie Ayon Trnscb Date/Time: 05/24/2020 (1511) [email or web address] Orig Print D/T: S: 05/24/2020 (072) Probe: PAGE 1 Signed Report- CT LOWER EXTRM W/O C [id number] 18:02:00 [facility] : 1945 Sex: M Name: DARIEN HUYNH [facility] : 1945 Age/S: 74 / M [address] [place] [address] Unit #: [id number] Loc: [place] [address] Phys: Jonathan Sheikh NPAcct: [id number] Dis Date: Status: ADM IN PHONE #:[phone] Exam Date: 05/23/2020 1728 FAX #: [phone] Reason: right bka, r/o fluid collection EXAMS: CPT CODE: [id number] [place] LOWER EXTRM W/[place] [address] [place] right femur without contrast. INDICATION: Right [...] iterative reconstruction techniques. DLP: 566 mGy-cm FINDINGS: Oiddp-thy-gcfd amputation has been performed. A permeative pattern [...] Mena M.D. CC: Sekou Curtis; Jonathan Sheikh [employer] Technologist:David Aguirre, (R)(CT) CTDI: DLP: Trnscb Date/Time: 05/23/2020 (1801) [email or web address] Orig Print D/T: S: 05/23/2020 (1805) PAGE 1 Signed Report- CT LOWER EXTRM W/O C [id number] 18:02:00 [facility] : 1945 Sex: M Name: DARIEN HUYNH [facility] : 1945 Age/S: 74 / M [address] [place] [address] Bl Unit #: [id number] Loc: [place] [address] Phys: Jonathan Sheikh NPAcct: [id number] Dis Date: Status: DIS IN PHONE #:[phone] Exam Date: 05/23/2020 1728 FAX #: [phone] Reason: right bka, r/o fluid collection EXAMS: CPT CODE: [id number] [place] L[place]TR[place] W/[place] [address] [place] right femur without contrast. INDICATION: Right [...] iterative reconstruction techniques. DLP: 566 mGy-cm FINDINGS: Sslwf-qie-oibu amputation has been performed. A permeative pattern [...] Mena M.D. CC: Sekou Curtis; Jonathan Sheikh [employer] Technologist:David Aguirre, RT(R)(CT) CTDI: DLP: Trnscb Date/Time: 05/23/2020 (1801) [email or web address] Orig Print D/T: S: 05/23/2020 (8172) PAGE 1 Signed ReportBASIC METABOLIC [id number] 13:38:00 Test Item Value Reference Range Interpretation [...] code = 9.6 mg/dL 8.0-10.5 N CA) [id number] 13:38:00 Test Item Value Reference Range Interpretation Comments PHOSPHOROUS (test code = PHOS) 3.9 MG/DL 2.5-4.9 N [id number] 13:36:00 Test Item Value Reference Range Interpretation Comments ALBUMIN (test code = ALB) 3.20 g/dL 3.4-5.0 L [id number] 13:36:00 Test Item Value Reference Range Interpretation Comments PREALBUMIN (test code = PREALB) 14.3 mg/dL 16.0-40.0 L CBC W/AUTO [id number] 13:15:00 Test Item Value Reference Range Interpretation [...] (test code NO = MDIFF) SED RATE [id number] 08:19:00 Test Item Value Reference Range Interpretation Comments SED RATE JOSSY (test code = 114 mm/hr 0-15 H SEDW) [id number] 08:09:00 Test Item Value Reference Range Interpretation Comments PREALBUMIN (test code = PREALB) 13.1 mg/dL 16.0-40.0 L C REACTIVE [id number] 08:08:00 Test Item Value Reference Range Interpretation Comments C REACTIVE PROTEIN (test code = 192.0 mg/L <10.0 H CRP) CBC W/AUTO [id number] 07:57:00 Test Item Value Reference Range Interpretation [...] MDIFF) - XR HIP W/PEL UNI 2+V [id number] 18:35:00 [facility] : 1945 Sex: M FAX: Sekou Jeffery [phone] [place]: St: ADM FAX: Dusty Smiley [phone] Name: DARIEN HUYNH [facility] [place] : 1945 Age/S: 74/M [address] [place], [place] [address]vd Unit #: [id number] Loc: G[address] [place] [address] Phys: Dusty Smiley NP Acct: [id number] Dis Date: Status: ADM IN PHONE #: [phone] Exam Date: 05/21/2020 1735 FAX #: [phone] Reason: left hip pain EXAMS:CPT CODE: [id number] XR HIP W/PEL UNI 2+[place] [address] 2+ RADIOGRAPHIC VIEWS LEFT HIP INDICATION: left [...] By: [email or web address] Orig Print D/T: S: 05/21/2020 (183) PAGE 1 Signed Report- XR HIP W/PEL UNI 2+V [id number] 18:35:00 [facility] : 1945 Sex: M FAX: Rubina Juan AntonioSekou anna Yaritza [phone] [place]: St: DIS FAX: Dusty Smiley [phone] Name: DARIEN HUYNH [facility] : 1945 Age/S: 74/M [address] [place] [address] Unit #: [id number] Loc: [place] [address] Phys: Dusty Smiley NP Acct: [id number] Dis Date: Status: DIS IN PHONE #: [phone] Exam Date: 05/21/20201734 FAX #: [phone] Reason: left hip pain EXAMS:CPT CODE: [id number] XR HIP W/PEL UNI 2+[place] [address] 2+ RADIOGRAPHIC VIEWS LEFT HIP INDICATION: left [...] CC: Sekou Curtis; Dusty Smiley NP Technologist: TORSTEN Lee) Trnscrd Date/Time/By: 05/21/2020 (1834) : By: [email or web address] [...] (test code NO = MDIFF) BASIC METABOLIC [id number] 07:40:00 Test Item Value Reference Range Interpretation [...] 9.1 mg/dL 8.0-10.5 N CA) COMPREHENSIVE METABOLIC [id number] 06:03:00 Test Item Value Reference Range Interpretation [...] TOTAL (test code = ALKP) CBC W/AUTO [id number] 05:49:00 Test Item Value Reference Range Interpretation [...] (test code NO = MDIFF) BASIC METABOLIC [id number] 08:43:00 Test Item Value Reference Range Interpretation [...] code = 9.0 mg/dL 8.0-10.5 N CA) [id number] 08:43:00 Test Item Value Reference Range Interpretation Comments PHOSPHOROUS (test code = PHOS) 4.7 MG/DL 2.5-4.9 N CBC W/AUTO [id number] 08:29:00 Test Item Value Reference Range Interpretation [...] (test code NO = MDIFF) BASIC METABOLIC [id number] 07:42:00 Test Item Value Reference Range Interpretation [...] 9.5 mg/dL 8.0-10.5 N CA) BASIC METABOLIC [id number] 09:55:00 Test Item Value Reference Range Interpretation [...] code = 8.7 mg/dL 8.0-10.5 N CA) [id number] 09:55:00 Test Item Value Reference Range Interpretation Comments PHOSPHOROUS (test code = PHOS) 5.2 MG/DL 2.5-4.9 H [id number] 09:55:00 Test Item Value Reference Range Interpretation Comments MAGNESIUM (test code = MAG) 1.89 mg/dL 1.80-2.40 N CBC W/AUTO [id number] 09:28:00 Test Item Value Reference Range Interpretation [...] REQUIRED (test code = MDIFF) CBC W/AUTO [id number] 09:28:00 Test Item Value Reference Range Interpretation [...] (test code NO = MDIFF) ACUTE HEPATITIS [id number] 13:08:00 Test Item Value Reference Range Interpretation [...] COMMENTS: At start of hemodialysisAB HEPATITIS B [id number] 13:08:00 Test Item Value Reference Range Interpretation Comments AB HEPATITIS B 22.1 mIU/mL See_Comment Status of I mmunity SURFACE (test code = HBSAB) Anti-HBs Level --- I nconsis tent with Immun ity 0 .0 - 9.9Consistent w ith Immunity >9.9Performed A t: HD [facility] [address] [id number] jaswinder Peralta MD Ph:[phone] [Automated mess age] The system alike generated this result transmitted ref erence range: Immunity >9.9. The reference r za was not used to interpret this result as normal/abnor mal. COMMENTS: At start of hemodialysisACUTE HEPATITIS [id number] 10:00:00 Test Item Value Reference Range Interpretation [...] COMMENTS: At start of hemodialysisAB HEPATITIS B [id number] 10:00:00 Test Item Value Reference Range Interpretation Comments AB HEPATITIS B SURFACE (test code = HBSAB) COMMENTS: At start of hemodialysisBASIC METABOLIC [id number] 09:23:00 Test Item Value Reference Range Interpretation [...] 8.5 mg/dL 8.0-10.5 N CA) CBC W/AUTO [id number] 09:16:00 Test Item Value Reference Range Interpretation [...] (test code NO = MDIFF) RENAL FUNCTION [id number] 06:58:00 Test Item Value Reference Range Interpretation [...] code = 3.0 MG/DL 2.5-4.9 N PHOS) [id number] 06:58:00 Test Item Value Reference Range Interpretation Comments MAGNESIUM (test code = MAG) 1.81 mg/dL 1.80-2.40 N CBC W/AUTO [id number] 06:49:00 Test Item Value Reference Range Interpretation [...] (test code NO = MDIFF) CBC W/AUTO [id number] 06:45:00 Test Item Value Reference Range Interpretation [...] code = MDIFF) - CT HEAD/BRAIN W/O [id number] 04:29:00 [facility] : 1945 Sex: M Name: DARIEN HUYNH [facility] [place] : 1945 Age/S: 74 / M [address] [place] [address] Unit #: [id number] Loc: [place] [address] [id number] Dis Date: Status: ADM IN PHONE #:[phone] Exam Date: 05/13/2020413 FAX #: [phone] Reason: TRAUMA EXAMS: CPT CODE: [id number] CT HEAD/BRAIN W/O CONT 08220 STUDY: - CT HEAD/BRAIN W/O CONT 05/13/2020 5:00 AM Ordering Physician: Fausto Espino MD Patient Name: DARIEN HUYNH MR: [id number] : 1945; Age: 74 years y/o Male [...] 1 Signed Report (CONTINUED) Name: DARIEN HUYNH [facility] Max Smith : 1945 Age/S: 74 / M [address] [place] [address] Unit #: [id number] Loc: [place] [address] Phys: Fausto Espino MD Acct: [id number] Dis Date: Status: ADM IN PHONE #: [phone] Exam Date: FAX #: [phone] Reason: TRAUMA EXAMS: CPT CODE: [id number] CT HEAD/BRAINW/O CONT 94416 <Continued> MASTOIDS: Clear. ORBITS: The globes are [...] Edgar CTDI: DLP: Trnscb Date/Time: 05/13/2020 (428) Michael.TP6 Orig Print D/T: S: 05/13/2020 (0432) PAGE 2 Signed Report- CT HEAD/BRAIN W/O [id number] 04:29:00 [facility] MAX [place]EName: DARIEN HUYNH : 1945 Sex: M Name: DARIEN HUYNH : 1945 Age/S: 74 / M [address] [place] [address] Unit #: [id number] Loc: [place] [address] Phys: [facility] [id number] Dis Date: Status: DIS IN PHONE #:[phone] Exam Date: 05/13/2020 0414 FAX #: [phone] Reason: TRAUMA EXAMS: CPT CODE: [id number] CT HEAD/BRAIN W/O CONT 56499 STUDY: - CT HEAD/BRAIN W/O CONT 05/13/2020 5:00 AM Ordering Physician: Fausto Espino MD Patient Name: DARIEN HUYNH MR: [id number] : 1945; Age: 74 years y/o Male [...] HUYNH : 1945 Age/S: 74 / M [address] [place] [address] Blvd Unit #: [id number] Loc: [place] [address] Phys: Fausto Espino MD Acct: [id number] Dis Date: Status: DIS IN PHONE #: [phone] Exam Date: FAX #: [phone] Reason: TRAUMA EXAMS: CPT CODE: [id number] CT HEAD/BRAINW/O CONT 88681 <Continued> MASTOIDS: Clear. ORBITS: The globes are [...] Renetta(R)(CT); Edgar CTDI: DLP: Trnscb Date/Time: 05/13/2020 (042) t.SDR.TP6 Orig Print D/T: S: 05/13/2020 (0439) PAGE 2 Signed ReportCOVID 19 Asymptomatic IH [id number] 03:09:00 Test Item Value Reference Range Interpretation [...] high or waivedcomplexit y tests. BASIC METABOLIC [id number] 02:14:00 Test Item Value Reference Range Interpretation [...] 8.5 mg/dL 8.0-10.5 N CA) HEPATIC FUNCTION [id number] 02:14:00 Test Item Value Reference Range Interpretation [...] 112 IUnit/L 20-125 N code = ALKP) [id number] 02:14:00 Test Item Value Reference Range Interpretation Comments LIPASE (test code = LIP) 185 U/L 13-57 H [id number] 02:14:00 Test Item Value Reference Range Interpretation [...] or Legal orEmployment ev aluation purposes. PROTHROMBIN [id number] 02:11:00 Test Item Value Reference Range Interpretation [...] o prevent recurre nt infarct). THROMBOPLASTIN TIME [id number] 02:11:00 Test Item Value Reference Range Interpretation Comments THROMBOPLASTIN TIME 31.8 Seconds 25.0-39.5 N Ther apeutic PARTIAL (test code = Range: 50.4 - 88.3 PTT) Seconds Effective 05/27/2018 PROTHROMBIN [id number] 02:10:00 Test Item Value Reference Range Interpretation [...] o prevent recurre nt infarct). THROMBOPLASTIN TIME [id number] 02:10:00 Test Item Value Reference Range Interpretation Comments THROMBOPLASTIN TIME PARTIAL (test Seconds 25.0-39.5 code = PTT) CBC W/AUTO [id number] 01:59:00 Test Item Value Reference Range Interpretation [...] NO = MDIFF) - CT HEAD/BRAIN W/O [id number] 23:15:00 [facility] 1945 Sex: M Name: DARIEN HUYNH [facility] : 1945 Age/S: 74 / M [address] [address] [place] Unit #: [id number] Loc: [place] [address] Phys: Undefined Provider Acct: [id number] Dis Date: Status: REG REF PHONE #: [phone] Exam Date: 05/12/2020 FAX #: Reason: s/p fall Report Has Been Amended EXAMS: CPT: [id number] CT HEAD/BRAIN W/O CONT 06538 Addendum - 05/12/2020 SIGNED 05/12/[address]: [id number]/CTHDBRWO Findings were notified to smokehouse operator Huyen at 11:15 PM on 05/12/2020. at 2315 Reported and signed by: Kaela Lindsey M.D. Transcribed: 05/12/2020 (4754) t.RYANR.TH15 Report EXAM: - CT HEAD/BRAIN W/O CONT [...] HUYNH : 1945 Age/S: 74 / M [address] [address] [place] Unit #: [id number] Loc: [place] Phys: Undefined Provider Acct: [id number] Dis Date: Status: REG REF PHONE #: [phone] Exam Date: 05/12/20206 FAX #: Reason: s/p fall Report Has Been Amended EXAMS: CPT: [id number] CT HEAD/BRAIN W/O CONT 31315 <Continued> frontoparietal lobe without midline shift or transtentorial herniation. SCALP: No abnormalities. BONES: No skull fractures or aggressive calvarial lesions. PARTIALLY IMAGED FACE /PARANASAL SINUSES: Paranasal sinuses are clear. MASTOID AIR CELLS: No effusion. IMPRESSION: 1. Acute 7 mm left parafalcine subdural hematoma without midline shift or transtentorial herniation. 2. Moderate chronic small vessel ischemic disease. at 225 Reported and signed by: Kaela Lindsey M.D. CC: Technologist:RT Sharon(Artie)(CT); ... CTDI: DLP: Trnscb Date/Time: 05/12/2020 (2250) t.SDR.TH15 Orig Print D/T: S: 05/12/2020 (2254) PAGE 2 Signed Report- CT HEAD/BRAIN W/O [id number] 23:15:00 [facility] 1945 Sex: M Name: DARIEN HUYNH [facility] : 1945 Age/S: 74 / M [address] [address] [place] Unit #: [id number] Loc: [place] [address] Phys: Undefined Provider Acct: [id number] Dis Date: Status: REG REF PHONE #: [phone] Exam Date: 05/12/20202213 FAX #: Reason: s/p fall Report Has Been Amended EXAMS: CPT: [id number] CT HEAD/BRAIN W/O CONT 28717 Addendum - 05/12/2020 SIGNED 05/12/2020 ADDENDUM: [id number] CT/CTHDBRWO Findings were notified to smokehouse operator Huyen at 11:15 PM on 05/12/2020. at 2315 Reported and signed by: Kaela Lindsey M.D. Transcribed: 05/12/2020 (1529) tJUANTH15 Report EXAM: - CT HEAD/BRAIN W/O CONT [...] HUYNH : 1945 Age/S: 74 / M [address] [address] [place] Unit #: [id number] Loc: [id number] Phys: Undefined Provider Acct: [id number] Dis Date: Status: REG REF PHONE #: [phone] Exam Date: 05/12/20202213 FAX #: Reason: s/p fall Report Has Been Amended EXAMS: CPT: [id number] CT HEAD/BRAIN W/O CONT 82783 <Continued> frontoparietal lobe without midline shift or [...] PAGE 2 Signed Report- CT HEAD/BRAIN W/O [id number] 22:51:00 [facility] 1945 Sex: M Name: DARIEN HUYNH [facility] : 1945 Age/S: 74 / M [address] [address] [place] Unit #: [id number] Loc: [place] [address] Phys: Undefined Provider Acct: [id number] Dis Date: Status: REG REF PHONE #: [phone] Exam Date: 05/12/2020 5089 FAX #: Reason: s/p fall EXAMS: CPT: [id number] CT HEAD/BRAIN W/O CONT 78410 EXAM: -CT HEAD/BRAIN W/O CONT LOCATION: H61 [...] HUYNH : 1945 Age/S: 74 / M [address] [facility] Unit #: [id number] Loc: [place] [address] Phys: Undefined Provider Acct: [id number] Dis Date: Status: REG REF PHONE #: [phone] Exam Date: 05/12/2020 4719 FAX #: Reason: s/p fall EXAMS: CPT: [id number] CT HEAD/BRAIN W/O CONT 06501 <Continued> Electronically Signedby Armida Lindsey on 05/12/2020 at 2251 Reported and signed by: Kaela Lindsey M.D. CC: Technologist:Liss Jordan RT(R)(CT); ... CTDI: DLP: Trnscb Date/Time: 05/12/2020 (2250) JavyR.TH15 Orig Print D/T: S: 05/12/2020 (5022) PAGE 2 Signed Report- CT C-SPINE W/O [id number] 22:40:00 [facility] 1945 Sex: M Name: DARIEN HUYNH [facility] : 1945 Age/S: 74 / M [address] [address] [place] Unit #: [id number] Loc: [place] [address] Phys: Undefined Provider Acct: [id number] Dis Date: Status: REG REF PHONE #: [phone] Exam Date: 05/12/20202213 FAX #: Reason: s/p fall EXAMS: CPT: [id number] CT C-SPINE W/O CONT 52790 EXAM: -CT C-SPINE W/O CONT LOCATION: [facility] CLINICAL HISTORY/INDICATION: Fall withpain. COMPARISON: None TECHNIQUE: [...] HUYNH : 1945 Age/S: 74 / M [address] [address] [place] Unit #: [id number] Loc: [place] [address] Phys: Undefined Provider Acct: [id number] Dis Date: Status: REG REF PHONE #: [phone] Exam Date: 05/12/20202213 FAX #: Reason: s/p fall EXAMS: CPT: [id number] CT C- SPINE W/O CONT 52435 <Continued> spinal canal stenosis. C3-C4: Diffuse disc [...] (2239) t.RYANR.TH15 Orig Print D/T: S: 05/12/2020 (9752) PAGE 2 Signed Report- CT C-SPINE W/O [id number] 22:40:00 [facility] 1945 Sex: M Name: DARIEN HUYNH [facility] : 1945 Age/S: 74 / M [address] [facility] Unit #: [id number] Loc: [place] [address] Phys: Undefined Provider Acct: [id number] Dis Date: Status: REG REF PHONE #: [phone] Exam Date: 05/12/20202213 FAX #: Reason: s/p fall EXAMS: CPT: [id number] CT C-SPINE W/O CONT 82545 EXAM: -CT C-SPINE W/O CONT LOCATION: H61 [...] 1 Signed Report (CONTINUED) Name: DARIEN HUYNH [facility] : 1945 Age/S: 74 / M [address] [address] [place] Unit #: [id number] Loc: [place] [address] Phys: Undefined Provider Acct: [id number] Dis Date: Status: REG REF PHONE #: [phone] Exam Date: 05/12/20200 FAX #: Reason: s/p fall EXAMS: CPT: [id number] CT C- SPINE W/O CONT 53535 <Continued> spinal canal stenosis. C3-C4: Diffuse disc [...] ... CTDI: DLP: Trnscb Date/Time: 05/12/2020 (2239) tMIKOR.TH15 Orig Print D/T: S: 05/12/2020 (5342) PAGE 2 Signed ReportAFB [id number] 05:13:59 Test Item Value Reference Range Interpretation Comments AFB culture isolate No growth after 6 (test code = 543-9) weeks of incubation. [facility] fprewcb4182-98-33 06:15:49 Test Item Value Reference Range Interpretation Comments Fungus culture isolate No growth after 4 (test code = 1441) weeks of incubation. [facility] [place] < 1 [id number] 21:39:42EXAMINATION: OR FL < 1 HOUR C-arm [...] be issued by the physician performing the procedure.1D2IMG_LT03[facility] Anaerobic tyhwefr8623-01-99 14:47:42 Test Item Value Reference Range Interpretation Comments Anaerobic culture No anaerobic organisms isolate (test code = isolated. 552) [facility] CenterAFB [id number] 07:48:01 Test Item Value Reference Range Interpretation Comments AFB stain (test code = No acid fast bacilli 676-7) (AFB) seen. [facility] CenterA[facility] [id number] 07:48:01 Test Item Value Reference Range Interpretation Comments Aerobic culture isolate No growth after 3 (test code = 498) days. [facility] CenterFungus ioxvo4788-09-26 07:48:01 Test Item Value Reference Range Interpretation Comments Fungus smear (test code = No fungi observed. 1443) [facility] CenterGram wdkvj9984-22-61 07:48:01Gram stain isolateFew WBC'sNo organisms seen Comment: Specimen InformationSpecimen Source: TissueSpecimen Site: Femur: Right femoral canal tissue [facility] [id number] 21:19:54 Test Item Value Reference Range Interpretation Comments Case number (test code = [id number]) Surgical pathology See link below for report (test code = PDF Lab Report 2255) Result status (test code This is Final Report = [id number]) for [id number] [facility] carotid ymzxlr2024-75-21 00:39:00 [facility] Carotid Artery Duplex Report [address] [place] [address] For senior software quality engineer purposes, the categorization of the degree of the stenosis of this exam is based on criteria described in the IAC carotid stenosis grading white paper( www.intersocietal.org/Vascular) and Shagufta Andrews., Ritu Armendariz., et al. Carotid artery stenosis: maya-scale and Doppler US diagnosis--Society of Radiologists in Ultrasound Consensus Conference. Radiology. 2003 Nov; 229(2):340-6. Pat.Name: DARIEN HUYNH Pat.ID: [id number] .Date: 03/23/2020 Refer.MD: BEAR MARIEE MD Exam Time: 11:25:00 AM Study Type:Carotid Height: 68in Weight: 186lb BSA: 1.98 m2 Age: 9 1945,74Y Sex: MALE Sonogrphr: NOEMI Chapman Pat. Stat.:Inpatient Room: [address] Vol: BE, CPT - 4: 41477 Echo Event ID:[id number] Order ID: [id number] Reason for Study:Cervical bruit, no prior carotid [...] EDV 23 cm/sLeft ICA Mid ICA Mid HGQ080 cm/s Left ICA Prox ICA Prox PSV 125 cm/s Left Subclavian Subclavian PSV 312 cm/s Subclavian EDV 66.6 cm/sRight SCA Prox SCA Prox PSV 172 cm/s SCA Prox EDV 22 cm/sLeft SCA Prox SCA Prox PSV 312 cm/s SCA Prox EDV 66 cm/sRight ICA/CCA Ratio ICA/CCA PSV 1.67 Left ICA/CCA Ratio ICA/CCA PSV 1.14 Signed 03/23/2020 06:39 PMAngel Liang MD, RPVIInterce, Radiology Results In - 16:40 PM CST [facility] Carotid Artery Duplex Report [address] [place] [address] For senior software quality engineer purposes, the categorization of the degree of the stenosis of this exam is based on criteria described in the IAC carotid stenosis grading white paper( www.intersocietal.org/Vascular) and Shagufta Andrews., Ritu Armendariz., et al. Carotid artery stenosis: maya-scale and Doppler US diagnosis--Society of Radiologists in Ultrasound Consensus Conference. Radiology. 2003 Nov; 229(2):340-6. Pat.Name: DARIEN HUYNH Pat.ID: [id number] .Date: 03/23/2020 Refer.MD: BEAR MARIEE MD Exam Time: 11:25:00 AM Study Type:Carotid Height: 68in Weight: 186lb BSA: 1.98 m2 Age: 9 1945,74Y Sex: MALE Sonogrphr: NOEMI Chapman Pat. Stat.:Inpatient Room: [address] Vol: BE, CPT - 4: 90323 Echo Event ID:[id number] Order ID: [id number] Reason for Study:Cervical bruit, no prior carotid [...] 1.14 Signed 03/23/2020 06:39 PMAngel Liang MD, [facility]2021-02-09 19:25:28Tejal Simpson Sing 03/22/2020 1:45 PMAirway Date/Time: 03/22/2020 1:00 PM Location: OR Performed by: BODY FINISHER/AAAnesthesiologist: Tahmina Mccloud/BODY FINISHER/AA: Tejal SimpsonAuthorized by: Liu Mccloud Urgency: ElectiveDifficult [...] First attempt using Sheikh 2 blade by BODY FINISHER. Second attempt with MD with MAC 3. Grade 3b view, secondary to neck stiffness.Grade 1 view with glidescope. ETT passed atraumatically.[facility] CenterTransthoracic Echocardiogram Complete, (w Contrast, Strain and 3D if needed)2020-03-19 20:20:00 Echocardiography Report [address]Name: DARIEN HUYNH Pat.ID: [id number] .Date: 03/19/2020 Refer.MD: CLINT KING DO Exam Time: 11:43:00 AM Study Type:Routine Echo Height: 68in Weight: 185.61lb BSA: 1.98 m2 Age: [birth year]74Y Sex: MALE BP: 110/57 HR: 70 bpm Sonogrphr: NILSON Conde. Stat.:Inpatient Room: [facility] Study Status:Final Echo Event ID:[id number] Order ID: [id number] Reason for Study:Perioperative function eval without cardiac [...] estimate PA systolic pressure. MEASUREMENTS:------- 2DParasternal Long [place] Ao An 2.2 cm LVPWd 1.3 cm [...] 03/19/2020 2:20 PM CST Echocardiography Report [address] [place] [address] Pat.Name: DARIEN HUYNHNess Pat.ID: [id number] .Date: 03/19/2020 Refer.MD: CLINT KING DO Exam Time: 11:43:00 AM Study Type:Routine Echo Height: 68in Weight:185.61lb BSA: 1.98 m2 Age: 9 1945,74Y Sex: MALE BP: 110/57 HR: 70 bpm Sonogrphr: NILSON Conde Pat. Stat.:Inpatient Room: [facility] Study Status:Final Echo Event ID:[id number] Order ID: [id number] Reason for Study:Perioperative function eval without cardiac [...] estimate PA systolic pressure. MEASUREMENTS: 2DParasternal Long [place] Ao An 2.2 cm LVPWd 1.3 cm [...] 3.7 l/m/m2 Signed 03/19/2020 02:20 Dodie Sarabia M.D.[facility] CenterI Lower Extremity Wo Contrast Otkis8240-77-80 13:07:30EXAMINATION: MRI LOWER EXTREMITY WO CONTRAST RIGHT [...] medially, beyond the cortex of the tibia.1D2RAD_PS08[facility] THIGH WO CONTRAST [id number] 12:29:55EXAMINATION: MRI KNEE WO CONTRAST RIGHT, MRI [...] with the fluid surrounding the tibial stem. [facility]-[id number] Interface, Radiology Results 03/19/2020 6:33 AM CST [...] communicate with the fluid surrounding the tibial stem.RM-YNKHFI7RgmphwusfCrescent Medical Center [facility] Knee Right Wo Tdiykzgd9778-51-04 12:29:55EXAMINATION: MRI KNEE WO CONTRAST RIGHT, MRI [...] with the fluid surrounding the tibial stem. [facility]- OYTTWW1Bg Interface, Radiology Results Incoming - 03/19/2020 6:33 [...] communicate with the fluid surrounding the tibial stem.[facility]-YLIMKV9WljckvaogSt. 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 Infection cannot be excluded. There is a joint effusion present. There is no acute fracture or dislocation. There are vascular calcifications. [id number] Interface, Radiology Results Incoming 03/18/2020 5:17 [...] acute fracture or dislocation. 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 Infection cannot be excluded. Bones are osteopenic. No definite acute fracture is seen. 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 Infection cannot be excluded. Bones are osteopenic. No definite acute fracture is seen.[facility]9QX2172S2TTwuziqhouThe Hospital at Westlake Medical CenterBJ [id number] 02:22:00 Test Item Value Reference Range Interpretation Comments TROPONIN I (test <0.012 See_Comment [Automated code = 7459183677) message] The system which generated this result [...] ? Lab Interpretation Normal (test code = 88326-3) [facility] [id number] 02:20:00 Test Item Value Reference Range Interpretation Comments TROPONIN I (test <0.012 See_Comment [Automated code = 7938045713) message] The system which generated this result [...] ? Lab Interpretation Normal (test code = 43282-3) [facility] Test Item Value Reference Range Interpretation Comments APPEARANCE (test code = Clear Clear 5053948444) COLOR (test code = Yellow Yellow 3707546958) PH (test code = 4.8-8.0 6177799180) SP GRAVITY (test code = 1.003-1.030 6290689830) GLU U QUAL (test code = Normal Normal 3731732536) BLOOD (test code = Negative Negative 2698675854) KETONES (test code = Negative Negative 4493602956) PROTEIN (test code = 100 mg/dL Negative A 2887-8) UROBILIN (test code = Normal Normal 9817996933) BILIRUBIN (test code = Negative Negative 4889568422) NITRITE (test code = Negative Negative 3305952085) LEUK AJ (test code = Negative Negative 9918176595) RBC/HPF (test code = See_Comment H [Autom ated message] 5593862601) The system alike generated this result transmit amado reference range : 0 - 3 HPF. The refe rence range was not u sed to interpret th is result as normal/abnormal . WBC/HPF (test code = <1 See_Comment [Autom ated message] 1315072763) The system alike generated this result transmit amado reference range : 0 - 5 HPF. The refe rence range was not u sed to interpret th is result as normal/abnormal . BACTERIA (test code = Few Negative A 1428320237) MUCOUS (test code = Slight Negative LPF A 1921778902) SQ EPITH (test code = <1 HPF 9571911523) Lab Interpretation (test Abnormal code = 43356-4) [facility] 00:21:00 Test Item Value Reference Range Interpretation Comments APPEARANCE (test code = Clear Clear 4095095877) COLOR (test code = Yellow Yellow 7310000018) PH (test code = 4.8-8.0 9795159159) SP GRAVITY (test code = 1.003-1.030 6574876074) GLU U QUAL (test code = Normal Normal 3466509405) BLOOD (test code = Negative Negative 5192173814) KETONES (test code = Negative Negative 7376319908) PROTEIN (test code = 100 mg/dL Negative A 2887-8) UROBILIN (test code = Normal Normal 1486902384) BILIRUBIN (test code = Negative Negative 1624878798) NITRITE (test code = Negative Negative 6385148909) LEUK AJ (test code = Negative Negative 3270522554) RBC/HPF (test code = See_Comment H [Autom ated message] 8675259409) The system alike generated this result transmit amdao reference range : 0 - 3 HPF. The refe rence range was not u sed to interpret th is result as normal/abnormal . WBC/HPF (test code = <1 See_Comment [Autom ated message] 6930821803) The system alike generated this result transmit amado reference range : 0 - 5 HPF. The refe rence range was not u sed to interpret th is result as normal/abnormal . BACTERIA (test code = Few Negative A 2890958780) MUCOUS (test code = Slight Negative LPF A 6280655096) SQ EPITH (test code = <1 HPF 1145101157) Lab Interpretation (test Abnormal code = 47116-7) [facility]icsXR CHEST 1 [id number] 23:24:26 No acute cardiopulmonary abnormality. Preliminary Report Dictated by Resident: Kavita Eden MD., have reviewed this study and agree with theove report.EXAM: XR CHEST 1 VWHISTORY: palpitations COMPARISON: [...] reviewed this study and agree with theabove report.[facility]icsXR CHEST 1 [id number] 23:24:26 No acute cardiopulmonary abnormality. Preliminary Report [...] reviewed this study and agree with theabove report.[facility] COMP. METABOLIC PANEL ([id number])2019-11-11 23:16:00 Test Item Value Reference Range Interpretation Comments NA (test code = 137 mmol/L 135-145 6722185401) K (test code = 4.0 mmol/L 3.5-5 3092740402) CL (test code = 94 mmol/L 98-108 L 8110470974) CO2 TOTAL (test code = 29 mmol/L 23-31 5050930482) AGAP (test code = 2-16 9482509630) BUN (test code = 63 mg/dL 7-23 H 5951802733) GLUCOSE (test code = 142 mg/dL 70-110 H 1148866709) CREATININE (test code = 5.82 mg/dL 0.6-1.25 H 3481397375) TOTAL BILI (test code = 0.4 mg/dL 0.1-1.7 0786388451) CALCIUM (test code = 9.8 mg/dL 8.6-10.6 4248789488) T PROTEIN (test code = 7.5 g/dL 6.3-8.2 6416807652) ALBUMIN (test code = 4.2 g/dL 3.5-5 3563917696) ALK PHOS (test code = 100 U/L 34-122 2118852155) ALTv (test code = 14 U/L 5-50 1742-6) AST(SGOT) (test code = 27 U/L 13-40 7551854053) eGFR Calculation mL/min/1.73m2 (Non-) (test code = 4946894326) eGFR Calculation mL/min/1.73m2 () (test code = 6250310979) JACQUELYN (test code = JACQUELYN) Association of [...] tests). Lab Interpretation Abnormal (test code = 74858-1) [facility]00 Test Item Value Reference Range Interpretation Comments MAGNESIUM (test code = 9980852713) 2.5 mg/dL 1.7-2.4 H Lab Interpretation (test code = Abnormal 53130-5) [facility] METABOLIC PAN[facility] ([id number])2019-11-11 23:16:00 Test Item Value Reference Range Interpretation Comments NA (test code = 137 mmol/L 135-145 2382455210) K (test code = 4.0 mmol/L 3.5-5 1965329480) CL (test code = 94 mmol/L 98-108 L 7776201532) CO2 TOTAL (test code = 29 mmol/L 23-31 6423860618) AGAP (test code = 2-16 7268251536) BUN (test code = 63 mg/dL 7-23 H 8438821120) GLUCOSE (test code = 142 mg/dL 70-110 H 5248319854) CREATININE (test code = 5.82 mg/dL 0.6-1.25 H 8524646320) TOTAL BILI (test code = 0.4 mg/dL 0.1-1.2 4632122266) CALCIUM (test code = 9.8 mg/dL 8.6-10.6 3383583327) T PROTEIN (test code = 7.5 g/dL 6.3-8.2 0881144707) ALBUMIN (test code = 4.2 g/dL 3.5-5 2646288843) ALK PHOS (test code = 100 U/L 34-122 3241918098) ALTv (test code = 14 U/L 5-50 1742-6) AST(SGOT) (test code = 27 U/L 13-40 8459589645) eGFR Calculation mL/min/1.73m2 (Non-) (test code = 4209244748) eGFR Calculation mL/min/1.73m2 () (test code = 5749895336) JACQUELYN (test code = JACQUELYN) Association of [...] tests). Lab Interpretation Abnormal (test code = 39225-9) [facility] 23:16:00 Test Item Value Reference Range Interpretation Comments MAGNESIUM (test code = 7418988155) 2.5 mg/dL 1.7-2.4 H Lab Interpretation (test code = Abnormal 30362-4) [facility] WITH [id number] 22:53:00 Test Item Value Reference Range Interpretation Comments WBC (test code = See_Comment [Automated 9097-2) message] The sy stem which generated this result transmitted reference range : 4.20 - 10.70 10*3/?L. The reference range was not used to interpret this result as normal/abnormal . RBC (test code = See_Comment L [Automated 799-8) message] The sy stem which generated this [...] RDW-SD (test code = 46.1 fL 38.5-51.6 47814-2) RDW-CV (test code = 13.9 % 12.1-15.4 788-0) PLT (test code = See_Comment [Automated 777-3) message] The sy stem which generated this result transmitted reference range : 150 - 328 10*3/ ?L. The reference r za was not used to interpret this result as normal/abnormal . MPV (test code = 8.7 fL 9.8-13 L 21347-0) NRBC/100 WBC (test See_Comment [Automat ed code = 3722240300) message] The system which generated this result transmitted reference range : 0.0 - 10.0 /100 WBCs. The refer ence range was not u sed to interpret th is result as normal/abnormal . NRBC x10^3 (test code <0.01 See_Comment [Auto mated = 6564404522) message] The s ystem which generated this result transmitted reference range : 10*3/?L. The reference range was not used to interpret this result as normal/abnormal . GRAN MAT (NEUT) % 79.0 % (test code = 770-8) IMM GRAN % (test code 0.50 % = 1088678841) LYMPH % (test code = 7.3 % 736-9) MONO % (test code = 9.1 % 5905-5) EOS % (test code = 3.8 % 713-8) BASO % (test code = 0.3 % 706-2) GRAN MAT x10^3(ANC) 6.93 10*3/uL 1.99-6.95 (test code = 5591503877) IMM GRAN x10^3 (test 0.04 10*3/uL 0-0.06 code = 0329972735) LYMPH x10^3 (test code 0.64 10*3/uL 1.09-3.23 L = 731-0) MONO x10^3 (test code 0.80 10*3/uL 0.36-1.02 = 742-7) EOS x10^3 (test code = 0.33 10*3/uL 0.06-0.53 711-2) BASO x10^3 (test code 0.03 10*3/uL 0.01-0.09 = 704-7) Lab Interpretation Abnormal (test code = 19456-2) [facility] WITH [id number] 22:53:00 Test Item Value Reference Range Interpretation Comments WBC (test code = See_Comment [Automated 4590-2) message] The sy stem which generated this result transmitted reference range : 4.20 - 10.70 10*3/?L. The reference range was not used to interpret this result as normal/abnormal . RBC (test code = See_Comment L [Automated 919-8) message] The sy stem which generated this [...] RDW-SD (test code = 46.1 fL 38.5-51.6 78878-1) RDW-CV (test code = 13.9 % 12.1-15.4 788-0) PLT (test code = See_Comment [Automated 777-3) message] The sy stem which generated this result transmitted reference range : 150 - 328 10*3/ ?L. The reference r za was not used to interpret this result as normal/abnormal . MPV (test code = 8.7 fL 9.8-13 L 11893-3) NRBC/100 WBC (test See_Comment [Automat ed code = 8864543565) message] The system which generated this result transmitted reference range : 0.0 - 10.0 /100 WBCs. The refer ence range was not u sed to interpret th is result as normal/abnormal . NRBC x10^3 (test code <0.01 See_Comment [Auto mated = 4036770164) message] The s ystem which generated this result transmitted reference range : 10*3/?L. The reference range was not used to interpret this result as normal/abnormal . GRAN MAT (NEUT) % 79.0 % (test code = 770-8) IMM GRAN % (test code 0.50 % = 8898524526) LYMPH % (test code = 7.3 % 736-9) MONO % (test code = 9.1 % 5905-5) EOS % (test code = 3.8 % 713-8) BASO % (test code = 0.3 % 706-2) GRAN MAT x10^3(ANC) 6.93 10*3/uL 1.99-6.95 (test code = 2652010010) IMM GRAN x10^3 (test 0.04 10*3/uL 0-0.06 code = 9108986072) LYMPH x10^3 (test code 0.64 10*3/uL 1.09-3.23 L = 731-0) MONO x10^3 (test code 0.80 10*3/uL 0.36-1.02 = 742-7) EOS x10^3 (test code = 0.33 10*3/uL 0.06-0.53 711-2) BASO x10^3 (test code 0.03 10*3/uL 0.01-0.09 = 704-7) Lab Interpretation Abnormal (test code = 53012-1) [facility], LOWER WITHOUT CONTRAST, RIGHT 2017-01-25 19:47:00FINAL [...] Jorge Kumar Verified Date/Time:01/25/2017 19:47:23 Reading Location: [address] Reading Room RAD, HIP, 2 VIEWS, [id number] 19:11:00Reason for exam:->FALLReason for exam:->HIP PAINShould this be performed at the bedside?->NoFINAL REPORT CLINICAL HISTORY: Trauma and pain COMPARISON: None. FINDINGS: Frontal view of the pelvis and a lateral view of the right hip are submitted. There is no acute fracture, malalignment or destructive bony lesion. Surgical clips overlie the right lower abdomen. Signed: Jorge Kumar Verified Date/Time: 01/25/2017 19:11:49 Reading Location: [address] Reading Room zzufnsgy6361-52-76 16:35:16723Umqvqfig DyajqqbNduxkrcgi6569-16-94 16:35:61326Ouccqylw YyavqfgOntavarwu5879-78-30 16:35:0032[facility] Shrptytvp0754-06-75 16:35:35119Qigikohz UxxqnamIkolvihxt4908-93-05 16:35:85732 MEQ/LMemorial RawnvglMwvwaxsuf9656-75-86 16:35:004.3 MEQ/LMemorial Jimmy Jyjhyrnyk5012-60-47 16:35:002.5[facility] ZiqlinmSfzhahdpx8659-90-47 16:35:0029 [facility] JqaszrfJcodpchbd5383-17-77 16:35:00 Test Item Value Reference Range Interpretation Comments BUN/CREAT (test code = BUN/CREAT) 12 1 25 [facility] IpjjpudIrwvokgig1734-01-89 16:35:004.2[facility] 2014-02-18 16:35:008.9[facility] VaxkxjvBwnhvgqsl5417-86-51 16:35:0036[facility] LuvkycxOemxdwkuy2602-04-28 16:35:0025[facility] ShhactaWlfdxixzg8926-80-65 16:35:35823Eccfnxlu HuiimhmHdmjhlaxe4513-45-08 16:35:001.380[facility] Rurukbzwp5861-47-90 16:35:002.00[facility] ChbmsujTkbftphdrc9639-33-65 16:35:00 13.9[facility] LzhlmmvAncmklzlpk7285-39-75 16:35:0041.4[facility]ann[facility] 2014-02-18 16:35:64596 K/CMMMemorial AepmvtiUwcvxxnd5353-23-89 16:35:00Non ReactiveMemorial KsjyueqBrzoncrke9741-62-98 16:35:76925Eljzkstp [facility]Chem[facility] 2014-02-18 16:35:29258Vmmkhhas TesbapgZbbffhafo5717-97-82 16:35:0032[facility] HlhzvxdYbnratmof4662-35-68 16:35:84424Ieychjmn PdurofmVtisgzptl2445-96-88 16:35:86518 MEQ/LMemorial SbpsjrqVxgbzniio7835-05-69 16:35:004.3 MEQ/LMemorial NcvuruvXiisxowfp3121-88-86 16:35:002.5[facility] PyapeuoVvbrzinbd1130-18-31 16:35:0029[facility] WuwswucQdpkimitd1501-85-52 16:35:00 Test Item Value Reference Range Interpretation Comments BUN/CREAT (test code = BUN/CREAT) 12 25 [facility] XjefezwWakonsiap1397-90-93 16:35:004.2[facility] 2014-02-18 16:35:008.9[facility] FkncvoqHyubiewyp6945-89-95 16:35:0036[facility] GopcqbaTvsrsjcem8200-44-01 16:35:0025[facility] AlgeaeoMicakvupy9257-31-77 16:35:36021Czhwlmrh BvbnltjQjslhbziw2370-19-86 16:35:001.380[facility] Utmbhbjnr3211-34-60 16:35:002.00[facility] XggcpxmIvzzssiamv5643-58-12 16:35:00 13.9[facility] DzwxdfsCbbzcmfctb5517-54-82 16:35:0041.4[facility]ann[facility] 2014-02-18 16:35:30905 K/CMMMemorial FyshczgHcnsmisp9971-99-32 16:35:00Non ReactiveMemorial VcpxpznAdzhfmktv7066-40-34 20:45:12545Yackljwl [facility]Chem[facility] 2013-01-23 20:45:90687Yueqlufk PatbfugIbjtkgmkj0746-93-66 20:45:0023[facility] JnuhlztGgemwprzl2382-82-44 20:45:94039Dspzyjji CazqlydAroxowqvf8180-32-99 20:45:42462Wqhwumic FybifcfQozkyqvfk9616-36-70 20:45:0023[facility] Clkgxszcs0073-85-13 20:45:00See Note mg/dLMemorial IawodcrIjbwukexd0472-22-86 20:45:83528 MEQ/LMemorial ChvuuarQmmdzqxbi6452-58-06 20:45:004.5 MEQ/LMemorial XtffmgeOrytebejb3714-08-37 20:45:001.8[facility] UgaggrbSzmwvmutb4017-29-93 20:45:0030[facility] FzzomnuBekdlpqvu4427-63-05 20:45:00 Test Item Value Reference Range Interpretation Comments BUN/CREAT (test code = BUN/CREAT) 17 08-05 [facility] AvoarazFcvfymauk0677-48-48 20:45:004.2[facility] 2013-01-23 20:45:009.3[facility] VekmrpdSgfjddzne1218-40-38 20:45:0031[facility] HxievsvNuhrkotno5691-32-02 20:45:0020[facility] QjumoxuCnsujstmi7173-40-24 20:45:09085Ncvkvywy GntftxrLdqxunmzz3678-68-01 20:45:001.390[facility] Raqpsldes0339-19-21 20:45:001.33[facility] CmlinenDwhiteeuw5132-06-95 20:45:13899 [facility] NgfargoDqzakcbss2887-02-13 20:45:29564Rauqchpa [facility]Chem[facility] 2013-01-23 20:45:0023[facility] LpsahwhOymoesxgl7138-34-77 20:45:53383Faywyhwd YkvnsyqFksdcbfia3184-38-27 20:45:58040Fwyuvsma VvzwownEubsqjqsz3228-45-61 20:45:0023[facility] NtdkoasKqruidjgw3409-08-27 20:45:00See Note mg/dLMemorial JlmbtszVlcsireji7889-00-63 20:45:11011 MEQ/LMemorial NsuambyIztactegf2982-61-88 20:45:004.5 MEQ/LMemorial VzlnbgmRbedjyyug8068-60-09 20:45:001.8[facility] Uuesspwdz1636-05-71 20:45:0030[facility] ByjztauCcxnbsrha6025-41-36 20:45:00 Test Item Value Reference Range Interpretation Comments BUN/CREAT (test code = BUN/CREAT) 17 08-05 [facility] EjvgidsTtokcdsvc5095-56-23 20:45:004.2[facility] 2013-01-23 20:45:009.3[facility] SfopdrnEvtgjrhra4180-12-60 20:45:0031[facility] PhyzxhfNpopttzvo2470-38-26 20:45:0020[facility] BwvikxtMalxomefe6096-29-03 20:45:85450Wjqkrxqz TvzvczsYwndzhzkq9336-79-78 20:45:001.390[facility] Txtnrofru9024-96-47 20:45:001.33[facility] VwpojeqTvbbhjidu8669-33-80 15:12:571.57 [facility] BrqbmkiMaqpjatbu1332-21-70 15:12:571.57[facility] 2012-04-02 15:12:571.57[facility] DxzfttnZryxafdbt1046-00-81 15:12:571.57[facility]"
[2021-01-11] MEDS ORDERED: ONDANSETRON 4 MG/2 ML VIAL ONE (10:35)
[2021-01-11] MEDS ORDERED: MORPHINE 4 MG/ML SYR ONE (10:35)
--- NOTE | 2021-01-11 11:00 | RAD REPORT ---
EXAM DESCRIPTION: CTStone Protocol - 01/11/2021 10:48 am CLINICAL HISTORY: fall, lower back pain COMPARISON: Abdomen Pelvis Wo Contrast dated 10/01/2020 TECHNIQUE: CT of the abdomen and pelvis was performed. All CT scans are performed using dose optimization technique as appropriate and may include automated exposure control or mA/KV adjustment according to patient size. FINDINGS: Lower chest: Small right pleural effusion. Multi-vessel coronary arteries. Mild cardiomega ly. Liver: No acute abnormality or suspicious lesions. Biliary: No biliary ductal dilatation. Stomach: No significant focal abnormality. Duodenum: No significant focal abnormality. Pancreas: No significant abnormality. Spleen: No significant abnormality. Adrenal: No suspicious lesions. Kidney/ureter: No hydronephrosis. No renal calculi. Surgically absent right kidney. Prominent left re nal collecting system and ureter may be due to solitary kidney. Residual right ureter noted. Retroperitoneum: No retroperitoneal adenopathy. Vascular: No aneurysm. Atherosclerosis. Bowel: No significant focal abnormality. Peritoneum: No ascites or free air. Small fat containing ventral hernias. Bladder: Grossly unremarkable. Reproductive: No adnexal masses. Bones: Fracture involving the anterior inferior endplate of T10. This may be related to the partially bridging osteophyte at T10-11. Partial right lower extremity amputation. Other: n/a IMPRESSION: Nondisplaced anterior inferior endplate fracture of T10. No vertebral body height loss.
[2021-01-11] MEDS ORDERED: DIAZEPAM 10 MG/2 ML INJ SYRINGE ONE (11:27)
--- NOTE | 2021-01-11 12:37 | EDPHYS ---
Physician Documentation [facility] Name: Amando Grossman Age: 75 yrs Sex: Male : 1945 Arrival Date: 01/11/2021 Time: 09:52 Bed 17 Private MD: AYE Physician Corbin Ernst HPI: 01/11 10:05 This 75 yrs old Male presents to ER via Wheelchair with complaints of Fall Injury, Low jmm Back Pain. 10:05 Details of fall: The patient fell from seated position. Onset: The symptoms/episode jmm began/occurred acutely, just prior to arrival. Associated injuries: The patient sustained injury to the low back. The patient has not experienced similar symptoms in the past. Patient states falling backwards in restroom onto a toilet bowl. Denies LOC. Patient is taking plavix. Historical: - Allergies: 10:14 Iodine; topical is ok; vg1 10:14 PENICILLINS; vg1 10:14 "statins"; vg1 10:14 Shellfish Containing Products; vg1 - Home Meds: 10:14 aspirin 81 mg Oral chew 1 tab once daily [Active]; Celebrex 100 mg Oral cap 1 cap once vg1 daily [Active]; clopidogrel 75 mg Oral tab 1 tab once daily [Active]; fluticasone inhalation [Active]; metoprolol tartrate 50 mg Oral tab 1 tab 2 times per day [Active]; pantoprazole 40 mg Oral TbEC 1 tab once daily [Active]; Sular 34 mg Oral Tb24 1 tab once daily [Active]; tamsulosin 0.4 mg Oral cp24 1 cap once daily [Active]; WelChol 3.75 gram Oral pwpk 1 packet twice a day [Active]; zolpidem 10 mg Oral tab 1 tab nightly [Active]; - PMHx: 10:14 Anxiety; cholesterol; Depression; 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 - Social history:: Smoking status: Patient denies any tobacco usage or history of. ROS: 10:05 Constitutional: Negative for fever, chills, and weight loss, Cardiovascular: Negative jm for chest pain, palpitations, and edema, Respiratory: Negative for shortness of breath, cough, wheezing, and pleuritic chest pain. 10:05 Back: Positive for pain with movement. 10:05 All other systems are negative. Exam: 10:05 Constitutional: This is a well developed, well nourished patient who is awake, alert, jmm and in no acute distress. Head/Face: atraumatic. Eyes: EOMI, no conjunctival erythema appreciated ENT: Moist Mucus Membranes Neck: Trachea midline, Supple Chest/axilla: Normal chest wall appearance and motion. Cardiovascular: Regular rate and rhythm. No edema appreciated Respiratory: Normal respirations, no respiratory distress appreciated Abdomen/GI: Non distended, soft 10:05 Neuro: Awake and alert, normal gait Psych: Behavior is normal, Mood is normal, Patient is cooperative and pleasant 10:05 Back: ecchymosis noted to the lumbar spine region. 10:05 Skin: Appearance: Color: normal in color. Vital Signs: 10:12 BP 179 / 86; Pulse 71; Resp 18; Temp 98.3; Pulse Ox 97% ; Weight 83.91 kg; Height 5 ft. vg1 8 in. (172.72 cm); Pain 8/10; 10:15 BP 177 / 78; Pulse 67; Resp 18; Temp 98.4; Pulse Ox 98% on R/A; sl2 10:12 Body Mass Index 28.13 (83.91 kg, 172.72 cm) vg1 [place] Coma Score: 10:15 Eye Response: spontaneous(4). Verbal Response: oriented(5). Motor Response: obeys sl2 commands(6). Total: 15. Trauma Score (Adult): 10:15 Eye Response: spontaneous(1); Verbal Response: oriented(1); Motor Response: obeys sl2 commands(2); Systolic BP: > 89 mm Hg(4); Respiratory Rate: 10 to 29 per min(4); [place] Score: 15; Trauma Score: 12 MDM: 10:05 Patient medically screened. [facility] 12:34 Data reviewed: vital signs, nurses notes. Counseling: I had a detailed discussion with mo the patient and/or guardian regarding: the historical points, exam findings, and any diagnostic results supporting the discharge/admit diagnosis, radiology results, the need for outpatient follow up, to return to the emergency department if symptoms worsen or persist or if there are any questions or concerns that arise at home. ED course: Patient has a stable fracture. Advised to follow up with spine or pcp for reevaluation. Patient is otherwise given strict return precautions. . 01/11 10:14 Order name: CT Stone Protocol; Complete Time: 11:01 [facility] 01/11 10:14 Order name: Saline Lock; Complete Time: 10:35 [facility] Administered Medications: 10:38 Drug: Zofran (Ondansetron) 4 mg Route: IVP; Site: right antecubital; ss 10:41 Drug: morphine 4 mg Route: IVP; Site: right antecubital; ss Disposition: 01/12 09:16 Co-signature as Attending Physician, Corbin Ernst MD I agree with the assessment and oneil plan of care. Disposition Summary: 01/11/21 12:36 Discharge Ordered Location: Home [facility] Condition: Stable [facility] Diagnosis - T10 Fracture - Non Displaced, unspecified [facility] Followup: [facility] - With: Private Physician - When: 2 - 3 days - Reason: Recheck today's complaints, Continuance of care, Re-evaluation by your physician Discharge Instructions: - Discharge Summary Sheet [facility] - Thoracic Spine Fracture [facility] Forms: - Medication Reconciliation Form [facility] - Thank You Letter [facility] - Antibiotic Education [facility] - Prescription Opioid Use [facility] Prescriptions: - orphenadrine citrate 100 mg Oral Tablet Sustained Release - take 1 tablet by ORAL route 2 times per day As needed; 20 tablet; Refills: 0, [facility] Product Selection Permitted - Ultracet 37.5-325 mg Oral Tablet - take 1 tablet by ORAL route every 6 hours - for up to 5 days; do not exceed 8 jmm tablets per day.; 12 tablet; Refills: 0, Product Selection Permitted Signatures: Dispatcher [employer] Corbin Lacey MD MD cha Mickail, Joel, PA PA jmm Smirch, Shelby, RN RN ss Kelly Dewitt RN RN vg1
--- NOTE | 2021-01-11 12:37 | ER ---
Nurse's Notes [facility] Name: Amando Grossman Age: 75 yrs Sex: Male : 1945 Arrival Date: 01/11/2021 Time: 09:52 Bed 17 Private MD: Diagnosis: T10 Fracture - Non Displaced, unspecified Presentation: 01/11 10:12 Chief complaint: Patient states: Pt was in the restroom with left foot slipped from vg1 under him and pt landed on back side onto toilet. Bruising noted on mid back and lower back. Pt states takes Plavix. Denies LOC or hitting head. Incident occurred this morning. Coronavirus screen: Vaccine status: Patient reports receiving the 2nd dose of the covid vaccine. Client denies travel out of the [place] in the last 14 days. Ebola Screen: Patient negative for fever greater than or equal to 101.5 degrees Fahrenheit, and additional compatible Ebola Virus Disease symptoms. Initial Sepsis Screen: Does the patient meet any 2 criteria? No. Patient's initial sepsis screen is negative. Does the patient have a suspected source of infection? No. Patient's initial sepsis screen is negative. Risk Assessment: Do you want to hurt yourself or someone else? Patient reports no desire to harm self or others. Onset of symptoms was January 11, 2021. 10:12 Method Of Arrival: Wheelchair vg1 10:12 Acuity: KELLY 3 vg1 Triage Assessment: 10:14 General: Appears in no apparent distress. uncomfortable, Behavior is calm, cooperative. vg1 Pain: Complains of pain in back. Historical: - Allergies: 10:14 Iodine; topical is ok; vg1 10:14 PENICILLINS; vg1 10:14 "statins"; vg1 10:14 Shellfish Containing Products; vg1 - Home Meds: 10:14 aspirin 81 mg Oral chew 1 tab once daily [Active]; Celebrex 100 mg Oral cap 1 cap once vg1 daily [Active]; clopidogrel 75 mg Oral tab 1 tab once daily [Active]; fluticasone inhalation [Active]; metoprolol tartrate 50 mg Oral tab 1 tab 2 times per day [Active]; pantoprazole 40 mg Oral TbEC 1 tab once daily [Active]; Sular 34 mg Oral Tb24 1 tab once daily [Active]; tamsulosin 0.4 mg Oral cp24 1 cap once daily [Active]; WelChol 3.75 gram Oral pwpk 1 packet twice a day [Active]; zolpidem 10 mg Oral tab 1 tab nightly [Active]; - PMHx: 10:14 Anxiety; cholesterol; Depression; 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 - Social history:: Smoking status: Patient denies any tobacco usage or history of. Screenin:15 Abuse screen: Denies threats or abuse. Denies injuries from another. Nutritional sl2 screening: No deficits noted. Tuberculosis screening: No symptoms or risk factors identified. Fall risk At risk due to immobility. Exposure risk/Travel Screening: None identified. Vital Signs: 10:12 BP 179 / 86; Pulse 71; Resp 18; Temp 98.3; Pulse Ox 97% ; Weight 83.91 kg; Height 5 ft. vg1 8 in. (172.72 cm); Pain 8/10; 10:15 BP 177 / 78; Pulse 67; Resp 18; Temp 98.4; Pulse Ox 98% on R/A; sl2 10:12 Body Mass Index 28.13 (83.91 kg, 172.72 cm) vg1 [place] Coma Score: 10:15 Eye Response: spontaneous(4). Verbal Response: oriented(5). Motor Response: obeys sl2 commands(6). Total: 15. Trauma Score (Adult): 10:15 Eye Response: spontaneous(1); Verbal Response: oriented(1); Motor Response: obeys sl2 commands(2); Systolic BP: > 89 mm Hg(4); Respiratory Rate: 10 to 29 per min(4); [place] Score: 15; Trauma Score: 12 ED Course: 09:52 Patient arrived in ED. kc5 10:02 Sinan Meza PA is PHCP. jmm 10:02 Corbin Ernst MD is Attending Physician. jmm 10:14 Triage completed. vg1 10:14 Arm band placed on. vg1 10:15 Patient has correct armband on for positive identification. Bed in low position. Call sl2 light in reach. Side rails up X2. 10:15 Patient maintains SpO2 saturation greater than 95% on room air. sl2 10:35 Inserted saline lock: 20 gauge in right antecubital area, using aseptic technique. em1 10:47 Ira Ferreira, RN is Primary Nurse. sl2 10:47 CT Stone Protocol In Process Unspecified. EDMS 10:47 CT Stone Protocol Sent. sl2 Administered Medications: 10:38 Drug: Zofran (Ondansetron) 4 mg Route: IVP; Site: right antecubital; ss 10:41 Drug: morphine 4 mg Route: IVP; Site: right antecubital; ss Intake: 10:15 IV: 20ml; Total: 20ml. sl2 Outcome: 12:36 Discharge ordered by . mo 13:07 Patient left the ED. sl2 Signatures: Dispatcher [employer] EDMS Sinan Meza PA PA jmm Martinez, Eric em1 Lisa Blankenship RN RN Kelly Red RN RN vg1 Ira Ferreira, RN RN sl2 Tiana Rivera kc5
[2021-01-11 13:22] VITALS: BP 177/78; TEMP 98.4; O2SAT 98
== END 2021-01-11 13:07 | disposition home or self-care (01) ==
LOC: ER 09:51
DX: S22.071A Stable burst fracture of T9-T10 vertebra, initial encounter for closed fracture (principal); W19.XXXA Unspecified fall, initial encounter; I10 Essential (primary) hypertension; F32.A Depression, unspecified; Z79.01 Long term (current) use of anticoagulants; Z79.82 Long term (current) use of aspirin; Z99.2 Dependence on renal dialysis; Z95.1 Presence of aortocoronary bypass graft; Z88.0 Allergy status to penicillin; Z91.013 Allergy to seafood; Z88.8 Allergy status to other drugs, medicaments and biological substances; Z91.048 Other nonmedicinal substance allergy status
CPT/HCPCS: 76377; 74176; 96375; 96374; 99284; J3360; J2405

== ENCOUNTER 2021-02-09 19:10 | Emergency (ER) | payer OTHER, BC ==
--- OUTSIDE RECORDS SUMMARY | 2021-02-09 19:18 | XMS REPORT | Continuity of Care Document ---
:1945 Author Organization [facility] t Address [address] [place] [address] Care Team Providers Name Role Phone Jerrell Pierce MD Primary Care Physician Provider Attending Clinician Unavailable Yaritza Curtis Attending Clinician Unavailable Brooke Espino Attending Clinician Unavailable PETER Attending Clinician Unavailable PETER Attending Clinician Unavailable Archie Kerr MD Attending Clinician Sugar SANTOS Attending Clinician Unavailable Sixto Arvizu MDkant Attending Clinician Obi King DO Attending Clinician [...] Expiration Date Sour ce Number MEDICAREMEDICARE PART [id number] 2010 [place] [facility] [place] AND 00:00:00 Hospital [id number]- [place] [id number] 2010 Sathya quintanilla MEDICARE 4 00:00:00 Hospital [id number] [id number] mercial Problems Condition Condition Condition Status [...] Active 2019-02 B aylor knee knee 0-10 [place] replacemen replacemen 00:00: of t, total, t, total, 00 Medi sky bilateral bilateral e 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 hodi renal renal 03-05 st disease on disease on 00:00: Ho spita dialysis dialysis 00 l Impaired Impaired Disease Active 2018-02 [facility] fasting fasting 1-17 [place] glucose glucose 00:00: of 00 Medicin e Urinary Urinary Disease Active 2018-02 [facility] frequency frequency 1-17 Natan ege 00:00: of 00 Medicin e Chronic Chronic Disease Active 2018-02 [facility] disease disease 0-09 st anemia anemia 00:00: Hospita 00 l Chronic Chronic Disease Active 2018-02 [facility] kidney kidney 0-09 disease, disease, 00:00: Hospit a stage IV stage IV 00 l (severe) (severe) Arthritis Arthritis Disease Active 2017-02 [facility] of knee, of knee, 2 Colleg e left left 00:00: of 00 Medicin e 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 [facility] knee knee 03-24 College replacemen replacemen 00:00: of t, t, 00 Medicin bilateral bilateral e Anemia, Anemia, Disease Active 2017-02 [facility] unspecifie unspecifie 02-23 st d d 00:00: Hospita 00 l Chronic Chronic Disease Active [facility] renal renal 6 [place] disease, disease, 00:00: of stage 4, stage 4, 00 Medici n severely severely e decreased decreased glomerular glomerular filtration filtration rate (GFR) rate (GFR) between between 15-29 15-29 mL/min/1.7 mL/min/1.7 3 square 3 square meter meter (HCCode) (HCCode) Atheroscle Atheroscle Disease Active Overview : [facility] rosis of rosis of 8 [employer] [place] 00:00: standing of coronary coronary 00 disease, Medi sky artery of artery of stable e [place] with heart heart current without without RxLast angina angina Assessmen pectoris pectoris t & Plan: Continue current Rx and control all risk factors including weight Essential Essential Disease Active Overview: [facility] hypertensi hypertensi 8- Stable Co llege on on 00:00: and of 00 sometimes Medicin BP drops e too muchLast Assessmen t & Plan: Continue current Rx and control all risk factors including weight Heart Heart Disease Active Overview: [facility] murmur murmur - A College 00:00: systolic of 00 murmur Medicin Grade 2/6 e over LSB , not radiating in any direction but audible over most of [place] l areaLast Assessmen t & Plan: Continue current Rx and control all risk factors including weight S/P S/P Disease Active Overview: [facility] angioplast angioplast 8- In 2009 C ollege y with y with 00:00: he had A of stent stent 00 stent Medicin deployed e in proximal RCA andCx had only Angioplas ty with good resultsLa [facility] t & Plan: Continue current Rx and control all risk factors including weight H/O H/O Disease Active Overview: [facility] unilateral unilateral 09-23 He had Co llege nephrectom nephrectom 00:00: nephrecto of y y 00 my long Medicin time ago e and the other kidney is weakLast Assessmen t & Plan: Monitor closely Rx and control all risk factors including weight Dyslipidem Dyslipidem Disease Active Overview : [facility] ia ia 09-23 Last year College 00:00: they were of 00 not Medicin perfectCu e rrent Labs pendingLa [facility] t & Plan: Continue current Rx and control all risk factors including weight. 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 Antibioti c [facility] t & Plan: Continue current Rx and [...] PROSTATE - 10:35:00 l W/UR OBST 00:00: Jimmy & OTH LUTS HYPERTROPH 00 Y PROSTATE W/UR OBST & OTH LUTS Active 01/23/2013 Condition 5 [facility] DYSLIPIDEM Condition Active 2014-02-18 [facility] [place] 10:35:00 l Jimmy DYSLIPIDEM IA Active Condition 02/18/2014 Medical Group [...] Condition Active 2014-02-18 [facility] ON 10:35:00 l [place] HYPERTENSI ON Active Condition 02/18/2014 Medical Group Allergies, Adverse Reactions, Alerts Allergy Allergy Status Severity Reaction(s) Onset Inactive Treating Comm ents Source Name Type Date Date Clinician No Known DA Active U 2020-0 [facility] [place] [facility] 00:[facility]: d 00 [facility] No Known DA Active U 2020-0 [facility] Allergie -02 [place] 00:00: d 00 [facility] Iodine FA Active AR DIARRHEA 2020-0 [facility] and 05-13 [place] Iodide 00:00: d Containi 00 [facility] Produc shellfis FA Active SV SWELLING 2020-0 [facility] h - [place] derived 00:00: d 00 [facility] Iodine FA Active AR 2020-0 [facility] and 05-13 Clear Iodide 00:00: [place] Containi 00 [facility] shellfis FA Active SV 2020-0 [facility] h 05-13 Clear derived 00:00: Smtih 00 [facility] PINICILL DA Active AR ITCHING 2020-0 [facility] IN - Clear 00:00: [place] 00 [facility] Iodine Propensi Active Rash 2020-0 Univers ty to 9-30 ity of adverse 00:00: [place] reaction 00 [facility] Penicill Propensi Active Anaphylaxis 2020-0 U nivers ins ty to 9-30 ity of adverse 00:00: [place] reaction 00 [facility] IODINE DRUG Active Rash 2020-0 Univers [...] Medical s Branch Penicill Propensi Active 2017-02 [facility] ins ty to 2-10 College adverse 00:00: of reaction 00 Medicin s to e drug Fish-Polo Propensi Active Moderate Bayl or ived ty to 8-13 [place] Products adverse 00:00: of reaction 00 Medicin [...] reaction 00 Center s Atorvast Propensi Active [facility] atin ty to 2-24 College adverse 00:00: [...] Stop Date Source Natural father Heart disease [facility] Natural mother COPD [facility] Social History Social Habit Start Date Stop Date Quantity Comments Source Sex Assigned At [facility] llege of Medicine Exposure to Unable to assess Univers ity of SARS-CoV-2 [facility] (event) Branch Tobacco use and 2019-11-19 2019-11-19 Never used [facility] llege of exposure 00:00:00 00:00:00 Medicine Alcohol intake 2019-11-19 2019-11-19 Current [facility] lege of 00:00:00 00:00:00 non-drinker of Medicine alcohol (finding) Smoking Status Start Date Stop Date Source Never smoker [facility] o f Medicine Unknown if ever smoked [facility] [place] Medications Ordered Filled Start Stop Current Ordering [...] (two) Hospita 31 times a l day. [place] twice daily diphenhydrA Yes 25mg Take 25 [...] for 30 days. Multiple 2019-02 Yes Qd [facility] Vitamins-Mi 0-08 College nerals (EYE 16:05: of [...] zolpidem 2019-02 Yes 10mg Take 10 mg [facility] (AMBIEN) 5 0-08 by mouth Colle [...] qd Bayl or 500 MG CPCR 011-18 [place] 16:03: 00:00 of 53 :00 Medicin e Colesevelam Yes TAKE [facility] [facility] HCl 3.75 g 11-03 DIRECTED Colle [...] mg per tablet metoprolol Yes TAKE ONE [facility] (LOPRESSOR) 1-24 TABLET BY Col lege [...] 100 mg 2-15 [facility] Chew 17:11: [address] niacin 500 2016-02 Yes [address] [facility] MG CR 2-15 [facility] - capsule 17:11: [address] zolpidem 2016-02 Yes 10mg Take [address] [facility] (AMBIEN) 10 2-15 by mouth Luke s - mg tablet 17:10: every Medical 17 night as Center needed for Insomnia. DULoxetine 2016-02 Yes 60mg QD Take [address] (CYMBALTA) 2-15 by mouth [facility] - 60 MG 17:10: daily. Medical capsule 17 [place] NIFEdipine 2016-02 Yes 60mg QD Take [address] (PROCARDIA- 2-15 by mouth Luke s - XL) 60 MG 17:10: daily. Medica l (OSM) 24 hr 17 Center tablet losartan 2020- No TAKE ONE Bayl [...] MG 24 hr 00:00: Medical tablet 00 [place] metoprolol 2021- No 25mg QD Take 25 mg Methodi tartrate 5-12 -[address] (LOPRESSOR) 00:00: 00:00 daily. Hos imelda 50 MG 00 :00 l tablet CLOPIDOGREL Yes TAKE 1 Andres dora BISULFATE 1-08 TABLET BY l 75 MG TABS 10:35: MOUTH [place] n 00 DAILY NISOLDIPINE Yes TAKE 1 Andres dora ER 34 MG 1-08 TABLET BY l [id number] 10:35: MOUTH [place] 00 DAILY LOSARTAN Yes TAKE 1 [facility] POTASSIUM 1-08 TABLET BY l 100 MG TABS 10:35: MOUTH Mary nn 00 DAILY CYMBALTA 60 Yes TAKE 1 Andres dora MG CPEP 1-08 TABLET BY l 10:35: MOUTH Jimmy 00 DAILY PANTOPRAZOL Yes TAKE 1 Andres dora E SODIUM 40 1-08 TABLET BY l MG TBEC 10:35: MOUTH Jimmy 00 DAILY CLOPIDOGREL Yes TAKE 1 Andres dora BISULFATE 1-08 TABLET BY l 75 MG TABS 10:35: MOUTH [place] n 00 DAILY NISOLDIPINE Yes TAKE 1 Andres dora ER 34 MG 1-08 TABLET BY l [id number] 10:35: MOUTH [place] 00 DAILY LOSARTAN Yes TAKE 1 [facility] POTASSIUM 1-08 TABLET BY l 100 MG TABS 10:35: MOUTH Mary nn 00 DAILY CYMBALTA 60 Yes TAKE 1 Andres dora MG CPEP 1-08 TABLET BY l 10:35: MOUTH [place] 00 DAILY PANTOPRAZOL Yes TAKE 1 Andres [...] 2-13 TABLET BY l PACK 14:45: MOUTH [place] DAILY CYMBALTA 60 2012-02 Yes TAKE 1 Andres dora MG CPEP 2-13 TABLET BY l 14:45: MOUTH [place] DAILY PANTOPRAZOL 2012-02 Yes TAKE 1 Andres dora E SODIUM 40 2-13 TABLET BY l MG TBEC 14:45: MOUTH [place] DAILY METOPROLOL 2012-02 Yes TAKE 1 Memor ia TARTRATE 50 2-13 TABLET BY l MG TABS 14:45: MOUTH Jimmy DAILY LOSARTAN 2012-02 Yes TAKE 1 [facility] POTASSIUM 2-13 TABLET BY l 100 MG TABS 14:45: MOUTH Mary nn DAILY WELCHOL 2012-02 Yes TAKE 1 [facility] 3.75 GM 2-13 TABLET BY l PACK 14:45: MOUTH [place] 00 DAILY CYMBALTA 60 2012-02 Yes TAKE 1 Andres dora MG CPEP 2-13 TABLET BY l 14:45: MOUTH [place] DAILY PANTOPRAZOL 2012-02 Yes TAKE 1 Andres dora E SODIUM 40 2-13 TABLET BY l MG TBEC 14:45: MOUTH Jimmy 00 DAILY PLAVIX 75 2012-02 No TAKE 1 Memori a MG TABS 2-13 TABLET BY l 00:00: MOUTH [place] 00 DAILY OCUVITE EYE 2012-02 Yes Memori a + MULTI 2-13 l TABS 00:00: Jimmy 00 COQ10 CAPS 2012-02 Yes [facility]oria 2-13 l 00:00: [place] 00 ASPIRIN 81 2012-02 Yes Memoria MG TABS 2-13 l 00:00: [place] 00 FLOMAX 0.4 2012-02 Yes one every Me moria MG CAPS 2-13 evening. l 00:00: [place] 00 LUNESTA 3 2012-02 Yes TAKE 1 Memori a MG TABS 2-13 TABLET BY l 00:00: MOUTH [place] DAILY LUNESTA 3 2012-02 Yes TAKE 1 Memori a MG TABS 2-13 TABLET BY l 00:00: MOUTH [place] DAILY FLOMAX 0.4 2012-02 No one every Me moria MG CAPS 2-13 evening. l 00:00: [place] 00 PLAVIX 75 2012-02 No TAKE 1 Memori a MG TABS 2-13 TABLET BY l 00:00: MOUTH [place] 00 DAILY OCUVITE EYE 2012-02 Yes Memori a + MULTI 2-13 l TABS 00:00: [place] 00 COQ10 CAPS 2012-02 Yes Memoria 2-13 l 00:00: [place] 00 ASPIRIN 81 2012-02 Yes Memoria MG TABS 2-13 l 00:00: [place] 00 FLOMAX 0.4 2012-02 Yes one every Me moria MG CAPS 2-13 evening. l 00:00: [place] 00 LUNESTA 3 2012-02 Yes TAKE 1 Memori a MG TABS 2-13 TABLET BY l 00:00: MOUTH [place] DAILY LUNESTA 3 2012-02 Yes TAKE 1 Memori a MG TABS 2-13 TABLET BY l 00:00: MOUTH [place] 00 DAILY FLOMAX 0.4 2012-02 No one [...] administered pneumococcal 2007-06-14 Completed [facility] immunization 14:23:57 [place] administered pneumococcal 2007-06-14 Completed [facility] immunization 14:23:57 Jimmy administered hepatitis B vaccine 2006-04-11 Completed Memor ial #3 15:23:57 [place] hepatitis B vaccine 2006-04-11 Completed Memor ial #3 15:23:57 Jimmy chicken pox 2006-03-20 Completed [facility] immunization #1 15:23:57 [place] chicken pox 2006-03-20 Completed [facility] immunization #1 15:23:57 [place] hepatitis B vaccine 2006-03-15 Completed Memor ial #2 given 15:23:57 [place] hepatitis B vaccine 2006-03-15 Completed Memor ial #2 given 15:23:57 Jimmy MMR (measles, mumps, 2006-02-28 Completed Andres rial rubella) virus 15:23:57 [place] immunization #1 MMR (measles, mumps, 2006-02-28 Completed Andres rial rubella) virus 15:23:57 [place] immunization #1 hepatitis B vaccine 2006-02-25 Completed Memor ial #1 given 15:23:57 [place] hepatitis B vaccine 2006-02-25 Completed Memor ial #1 given 15:23:57 Jimmy Vital Signs Vital Name Observation Time Observation Value Comments Source Systolic blood 2019-11-19 15:57:00 146 mm[Hg] [facility] pressure Medicine Diastolic blood 2019-11-19 15:57:00 72 mm[Hg] [facility] pressure Medicine Heart rate 2019-11-19 15:57:00 91 /min [facility] C ollege of Medicine Body height 2019-11-19 15:57:00 172.7 cm [facility] C ollege of Medicine Body weight 2019-11-19 15:57:00 83.462 kg [facility] C ollege of Medicine BMI 2019-11-19 15:57:00 27.98 kg/m2 [facility] ollege of Medicine Systolic blood 2019-11-19 15:57:00 146 mm[Hg] [facility] Medicine Diastolic blood 2019-11-19 15:57:00 72 mm[Hg] [facility] Medicine Heart rate 2019-11-19 15:57:00 91 /min [facility] C ollege of Medicine Body height 2019-11-19 15:57:00 172.7 cm [facility] C ollege of Medicine Body weight 2019-11-19 15:57:00 83.462 kg [facility] ollege of Medicine BMI 2019-11-19 15:57:00 27.98 kg/m2 [facility] ollege of Medicine Systolic blood 2019-11-12 01:28:00 126 mm[Hg] Univer sity of pressure [facility] Diastolic blood 2019-11-12 01:28:00 63 mm[Hg] Unive rsity of pressure [facility] Heart rate 2019-11-12 01:28:00 84 /min [facility]i ty [facility] Respiratory rate 2019-11-12 01:28:00 20 /min Univ ersity of [facility] Oxygen saturation in 2019-11-12 01:28:00 100 /min University of Arterial blood by [facility] Pulse oximetry Branch Systolic blood 2019-11-12 01:00:00 142 mm[Hg] Univer sity of pressure [facility] Diastolic blood 2019-11-12 01:00:00 71 mm[Hg] Unive rsity of pressure [facility] Heart rate 2019-11-12 01:00:00 84 /min [facility]i ty [facility] Respiratory rate 2019-11-12 01:00:00 14 /min Univ ersity [facility] Oxygen saturation in 2019-11-12 01:00:00 99 /min University of Arterial blood by [facility] Pulse oximetry Branch Body temperature 2019-11-11 22:21:00 36.61 Pat Univ [facility] [place] [facility] Body weight 2019-11-11 22:21:00 85 kg Universi ty [facility] Systolic blood 2019-11-12 01:28:00 126 mm[Hg] Univer sity of pressure [facility] Diastolic blood 2019-11-12 01:28:00 63 mm[Hg] Unive rsity of [facility] Heart rate 2019-11-12 01:28:00 84 /min Universi ty [facility] Respiratory rate 2019-11-12 01:28:00 20 /min Univ ersity of [facility] Oxygen saturation in 2019-11-12 01:28:00 100 /min University of Arterial blood by [facility] Pulse oximetry Branch Systolic blood 2019-11-12 01:00:00 142 mm[Hg] Univer sity of [facility] Diastolic blood 2019-11-12 01:00:00 71 mm[Hg] Unive rsity of [facility] Heart rate 2019-11-12 01:00:00 84 /min Universi [facility] Respiratory rate 2019-11-12 01:00:00 14 /min [facility] Oxygen saturation in 2019-11-12 01:00:00 99 /min University of Arterial blood by [facility] Pulse oximetry Branch Body temperature 2019-11-11 22:21:00 36.61 Pat [facility] Body weight 2019-11-11 22:21:00 85 kg [facility] Body height 2020-04-27 20:44:00 172.7 cm [facility] Body weight 2020-04-27 20:44:00 84.369 kg [facility] BMI 2020-04-27 20:44:00 28.28 kg/m2 [facility] Systolic blood 2020-03-26 14:44:51 139 mm[Hg] Method ist [facility] pressure Diastolic blood 2020-03-26 14:44:51 66 mm[Hg] [facility] pressure Heart rate 2020-03-26 14:44:51 80 /min [facility] Body temperature 2020-03-26 14:44:51 36 Pat [facility] Res[facility] rate 2020-03-26 14:44:51 19 /min [facility] Oxygen saturation in 2020-03-26 14:44:51 96 /min [facility] Arterial blood by Pulse oximetry Height 2014-02-18 15:55:42 [facility] [place] Weight 2014-02-18 15:55:42 [facility] Jimmy Temperature Oral (F) 2014-02-18 15:55:42 97.5 F [facility] Jimmy Heart Rate 2014-02-18 15:55:42 [facility] [place] Systolic (mm Hg) 2014-02-18 15:55:42 Andres rial Jimmy Diastolic (mm Hg) 2014-02-18 15:55:42 Mem orial Jimmy Weight 2013-01-23 19:53:21 [facility] Jimmy Temperature Oral (F) 2013-01-23 19:53:21 97.6 F [facility] Jimmy Heart Rate 2013-01-23 19:53:21 [facility] [place] Height 2013-01-23 19:53:21 [facility] [place] Systolic (mm Hg) 2013-01-23 19:53:21 Andres rial [place] Diastolic (mm Hg) 2013-01-23 19:53:21 Mem orial Jimmy Procedures Procedure Date / Time Performing Clinician Source Performed [id number] 2020-05-24 00:00:00 GRANI [facility] [id number] 2020-05-20 00:00:00 GIBJE.01 [facility] [id number] 2020-05-20 00:00:00 GIBJE.01 [facility] [id number] 2020-05-20 00:00:00 GIBJE.01 [facility] [id number] 2020-05-20 00:00:00 SEEGE [facility] [id number] 2020-05-16 00:00:00 JUSTINO.03 [facility] [id number] 2020-05-14 00:00:00 JUSTINO.03 [facility] [id number] 2020-05-11 00:00:00 ENCPL [id number] 2020-05-11 00:00:00 ENCPL [id number] 2020-05-11 00:00:00 ENCPL [id number] 2020-03-30 00:00:00 ENCCY [id number] 2020-03-30 00:00:00 ENCCY [id number] 2020-03-30 00:00:00 ENCCY [id number] 2020-03-30 00:00:00 ENCCY [id number] 2020-03-30 00:00:00 JENNIFERCY [id number] 2020-03-30 00:00:00 JENNIFERCY [id number] 2020-03-30 00:00:00 JENNIFERCY [id number] 2020-03-30 00:00:00 JENNIFERCY [id number] 2020-03-30 00:00:00 JENNIFERCY [id number] 2020-03-30 00:00:00 JENNIFERCY [id number] 2020-03-30 00:00:00 JENNIFERCY [id number] 2020-03-30 00:00:00 JENNIFERCY [id number] 2020-03-30 00:00:00 JENNIFERCY [id number] 2020-03-30 00:00:00 JENNIFERCY [id number] 2020-03-30 00:00:00 JENNIFERCY [id number] 2020-03-30 00:00:00 JENNIFERCY [id number] 2020-03-30 00:00:00 JENNIFERCY [id number] 2020-03-30 00:00:00 JENNIFERCY [id number] 2020-03-30 00:00:00 JENNIFERCY [id number] 2020-03-30 00:00:00 JENNIFERCY [id number] 2020-03-30 00:00:00 MICHELLE HC COMPLETE BLD COUNT 2020-03-25 10:45[facility] Obi BASIC METABOLIC PANEL 2020-03-25 10:00[facility] ESTIMATED GFR 2020-03-25 10:00:00 Clint King Ho spital Obi HEMODIALYSIS 2020-03-24 22:39:54 Maldonado Casper [facility] HC COMPLETE BLD COUNT 2020-03-24 11:00:[facility] W[facility] DIFF Obi BASIC METABOLIC PANEL 2020-03-24 10:00:00 [facility] Obi ESTIMATED GFR 2020-03-24 10:00:00 Clint King Ho spital Obi US CAROTID DUPLEX 2020-03-23 18:31:05 [facility] BILATERAL BASIC METABOLIC PANEL 2020-03-23 09:20:00 [facility] Obi HC COMPLETE BLD COUNT 2020-03-23 09:20:00 [facility] W/AUTO DIFF Obi ESTIMATED GFR 2020-03-23 09:20:00 Clint King spital Obi POC GLUCOSE 2020-03-22 22:27:00 Clint King spital Obi HEMODIALYSIS 2020-03-22 22:13:20 Romy Woodson spital Tabitha ANAEROBIC CULTURE 2020-03-22 20:52:00 [facility] 2020-03-22 20:52:00 Usha Obipopeye Ferrer spital AFB STAIN 2020-03-22 20:52:00 Obi Kerr spital AEROBIC CULTURE 2020-03-22 20:52:00 Obi Kerr spital FUNGUS SMEAR 2020-03-22 20:52:00 Usha Obipopeye Ferrer spital ANAEROBIC CULTURE 2020-03-22 20:50:00 [facility] FUN[facility]US [facility] 2020-03-22 20:50:00 Usha Obipopeye Ferrer spital AFB STAIN 2020-03-22 20:50:00 Usha Obipopeye Ferrer spital AEROBIC CULTURE 2020-03-22 20:50:00 Usha Obipopeye Ferrer spital GRAM STAIN 2020-03-22 20:50:00 Obi Kerr spital SURGICAL PATHOLOGY 2020-03-22 20:30:00 [facility] REQUEST Obi AFB CULTURE 2020-03-22 19:52:00 Obi Kerr spital AFB CULTURE 2020-03-22 19:50:00 Obi Kerr spital OR FL < 1 HOUR 2020-03-22 19:30:00 Usha Obipopeye Valladares spital NM AN ELECTIVE 2020-03-22 19:25:28 Simpson, Tejal [facility] ENDOTRACHEAL AIRWAY AMPUTATION, ABOVE KNEE 2020-03-22 18:47:[address] [facility] POC GLUCOSE 2020-03-22 15:07:00 Clint Kingtal Obi HC COMPLETE BLD COUNT 2020-03-22 12:45:00 [facility]AUTO DIFF TYPE AND SCREEN 2020-03-22 12:45:00 Carlos Nelson spital VANCOMYCIN LEVEL, RANDOM 2020-03-22 10:00:00 [facility] BASIC METABOLIC PANEL 2020-03-22 10:00:00 Clint King [facility] Obi ESTIMATED GFR 2020-03-22 10:00:00 Clint King spital Obi LIPID PANEL 2020-03-22 10:00:00 Bear Marieetal HEPATITIS B SURFACE 2020-03-21 14:22:00 Kumar Ayala [facility] ANTIGEN PROTHROMBIN TIME WITH INR 2020-03-21 12:15:00 [facility] PARTIAL THROMBOPLASTIN 2020-03-21 12:15:00 [facility] TIME (PTT) BASIC METABOLIC PANEL 2020-03-21 12:15:00 [place] [facility] WITH PLATELET AND 2020-03-21 12:15:00 [place] DIFFERENTIAL VANCOMYCIN LEVEL, RANDOM 2020-03-21 12:15:00 [facility] ESTIMATED GFR 2020-03-21 12:15:00 [facility] 2020-03-21 06:05:17 Kumar Ayala H ospital VANCOMYCIN LEVEL, RANDOM 2020-03-20 20:54:00 [facility] BASIC METABOLIC PANEL 2020-03-20 11:30:00 Clint King [facility] Obi ESTIMATED GFR 2020-03-20 11:30:00 Clint King spital Obi TTE COMPLETE, W CONTRAST, 2020-03-19 18:00:00 Juan Mickey noriega [facility] W DOPPLER ([id number]) HC COMPLETE BLD COUNT 2020-03-19 10:14:00 [facility] W/AUTO DIFF MRI KNEE WO CONTRAST 2020-03-19 09:38:00 [facility] RIGHT MRI THIGH WO CONTRAST 2020-03-19 08:52:00 [place] [facility] RIGHT MRI LOWER EXTREMITY WO 2020-03-19 08:07:00 [facility] CONTRAST RIGHT BASIC METABOLIC PANEL 2020-03-19 07:01:00 [facility] ESTIMATED GFR 2020-03-19 07:01:00 [facility] spital LACTIC ACID LEVEL 2020-03-19 07:01:00 [facility] LACTIC ACID LEVEL, SEPSIS 2020-03-19 01:46:00 [place] [facility] - NOW AND REPEAT 2X EVERY [place] 3 HOURS BLOOD CULTURE, AEROBIC & 2020-03-18 23:22:00 [facility] ANAEROBIC [place] COVID-19 QUALITATIVE 2020-03-18 23:22:00 [facility] RT-PCR [place] BLOOD CULTURE, AEROBIC & 2020-03-18 23:16:00 [facility] ANAEROBIC [place] HC COMPLETE BLD COUNT 2020-03-18 23:16:00 [facility] W/AUTO DIFF [place] PROTHROMBIN TIME WITH INR 2020-03-18 23:16:00 [facility] [place] PARTIAL THROMBOPLASTIN 2020-03-18 23:16:00 [facility] TIME (PTT) [place] TYPE AND SCREEN 2020-03-18 23:16:00 [facility] spital [place] COMPREHENSIVE METABOLIC 2020-03-18 23:16:00 [facility] PANEL [place] LACTIC ACID LEVEL, SEPSIS 2020-03-18 23:16:00 [facility] - NOW AND REPEAT 2X EVERY [place] 3 HOURS C-REACTIVE PROTEIN 2020-03-18 23:16:00 [facility] [place] SEDIMENTATION RATE 2020-03-18 23:16:00 [facility] [place] ESTIMATED GFR 2020-03-18 23:16:00 [facility] spital [place] URINE CULTURE 2020-03-18 23:10:00 [facility] spital [place] URINALYSIS SCREEN AND 2020-03-18 23:10:00 [facility] MICROSCOPY, WITH REFLEX [place] TO CULTURE XR KNEE 1 OR 2 VW RIGHT 2020-03-18 23:03:39 [facility] [place] XR TIBIA FIBULA 2 VW 2020-03-18 23:03:04 [facility] RIGHT [place] URINALYSIS 2019-11-11 23:48:00 [facility] XR CHEST 1 VW 2019-11-11 23:02:37 [facility] MAGNESIUM 2019-11-11 22:43:00 [facility] COMP. METABOLIC PANEL 2019-11-11 22:43:00 Wanda [facility] ([id number]) [facility] CBC WITH DIFF 2019-11-11 22:43:00 [facility] TROPONIN I 2019-11-11 22:43:00 [facility] EKG-12 LEAD 2019-11-11 22:40:13 [facility] Plan of Care Planned Activity Planned Date Details Comments Source Future Scheduled ELECTROCARDIOGRAM [facility] Test COMPLETE [code = 20455] of M edicine Future Scheduled COLON CANCER SCREENING: [facility] Test COLONOSCOPY [code = of Medic ine COLON CANCER SCREENING: COLONOSCOPY] Future Scheduled TETANUS SHOT (ADULT) [facility] Test [code = TETANUS SHOT of Medi cine (ADULT)] Future Scheduled BMI FOLLOW UP PLAN [code [facility] Test = BMI FOLLOW UP PLAN] of Med icine Future Scheduled HEPATITIS C SCREENING [employer] Test [code = HEPATITIS C of Medic ine SCREENING] Future Scheduled ZOSTER VACCINE (1 of 2) [facility] Test [code = ZOSTER VACCINE of Me dicine (1 of 2)] Future Scheduled FALL SCREEN [code = FALL [facility] Test SCREEN] of Medicine Future Scheduled PNEUMOVAX >=65 (PPSV23) [facility] Test [code = PNEUMOVAX >=65 of Me dicine (PPSV23)] Future Scheduled [facility] ([facility] [code = MEDICARE AWV of Medi cine (Initial)] Future Scheduled FLU VACCINE > 6 [facility] [code = FLU VACCINE > 6 of M edicine MONTHS] Future Scheduled 65+ PNEUMOCOCCAL VACCINE [facility] (1 of 4 - PCV13) [code = Hos pital 65+ PNEUMOCOCCAL VACCINE (1 of 4 - PCV13)] Future Scheduled DIABETES: RETINAL EYE [facility] EXAM [code = DIABETES: Hospi sean RETINAL EYE EXAM] Future Scheduled DIABETIC FOOT EXAM [code [facility] = DIABETIC FOOT EXAM] Hospit al Future Scheduled COVID-19 VACCINE (1) [facility] Test [code = COVID-19 VACCINE Hos pital (1)] Future Scheduled COLONOSCOPY SCREENING [facility] [code = COLONOSCOPY Hospital SCREENING] Future Scheduled SHINGLES VACCINES (#1) [facility] Test [code = SHINGLES Hospital VACCINES (#1)] Future Scheduled INFLUENZA VACCINE [code [facility] = INFLUENZA VACCINE] Hospita l Future Scheduled EVENT MONITOR [code = 1 [facility]] starting of Medicine 11/19/2019 until 02/17/2020 Encounters Start End Encounter Admission Attending Care Care Encounter Source Date/Time Date/Time Type Type Clinicians Facility Department ID 2020 Outpatient Provider, CHRISTIAN HCAPM [id number] [facility] 10:29:00 Undefined 34 [facility] 2020 Inpatient KENDRA Curtis [id number] [facility] 10:29:00 Sekou 19 [facility] 2020 Inpatient KENDRA Espino [id number] [facility] 10:28:59 Fausto 61 [facility] 2020-06-03 Inpatient KENDRA CurtisCL [id number] [facility] 07:15:00 Sekou [id number] [facility] 2020-05-19 Inpatient UR Kirsten, HCACL REHA [id number] [facility] 18:00:00 Sekou 118253 [facility] 2020-05-13 Inpatient HCACL DIGNA [id number] [facility] 01:15:00 [id number] [facility] 2020-12-07 2020-12-07 Outpatient [facility] [id number] [place] 00:00:00 00:00:00 HEAVENLY [address] 2020-10-01 2020-10-06 Inpatient [facility], [facility] 012 [id number] 25 [place] 00:00:00 00:00:00 KUNLOS [address] 2020-05-12 2020-05-12 Outpatient TORI, HCAPM RADI [id number] [facility] 21:45:00 21:45:00 ELISHA [id number] [facility] [place] 2020-04-27 2020-04-27 Telemedici Obi Kerr 1.2.840.1 [id number] Methodi 15:36:30 16:10:[address] 3.430.2.7 Hospit a .3.624591 l .8 2020-04-27 2020-04-27 Travel 1.2.840.1 1.2.097.994 4780 168818 Methodi 00:00:00 00:00:[address] 3.430.2.7 0.2.7.3.698 Ho spita .3.154212 084.8 l .8 2020-04-26 2020-04-26 Travel 1.2.840.1 1.2.077.312 1736 518858 [facility] 00:00:00 00:00:[address] 3.430.2.7 0.2.7.3.698 Ho spita .3.367802 084.8 l .8 2020-04-13 2020-04-18 [facility] 1.2.840.1 [id number] 798 4879926 Methodi 11:45:02 00:23:05 Visit Archie 71452.1.[address] 3.430.2.7 Hospit a .3.712337 l .8 2020-04-13 2020-04-13 Travel 1.2.840.1 1.2.567.489 3061 450877 Methodi 00:00:00 00:00:[address] 3.430.2.7 0.2.7.3.698 Ho spita .3.274981 084.8 l .8 2020-04-05 2020-04-05 Abstract Sugar 1.2.840.1 [id number] 230 8924751 Methodi 00:00:00 00:00:[address] 3.430.2.7 Hospit a .3.154502 l .8 2020-04-04 2020-04-04 [facility] 1.2.840.1 [id number] 501 1952167 Methodi 13:34:38 14:35:21 Visit Archie 14513.1.[address] 3.430.2.7 Hospit a .3.810810 l .8 2020-04-04 2020-04-04 Travel 1.2.840.1 1.2.963.520 9383 689984 Methodi 00:00:00 00:00:[address] 3.430.2.7 0.2.7.3.698 Ho spita .3.877598 084.8 l .8 2020-04-01 2020-04-01 Orders Sugar 1.2.840.1 [id number] 2099 543162 Methodi 00:00:00 00:00:00 Only Emilee [address]125.1.[address] 3.430.2.7 Hospit a .3.778917 l .8 2020-04-01 2020-04-01 Travel 1.2.840.1 1.2.131.318 3307 961876 Methodi 00:00:00 00:00:[address] 3.430.2.7 0.2.7.3.698 Ho spita .3.560824 084.8 l .8 2020-03-18 2020-03-26 [facility] Suzanne Arvizukant 1.2.840 .1 [id number] Methodi 15:51:00 11:35:00 Encounter Clint King 63138.1.[address] Dickson, Umar 3.430.2.7 Hos imelda .3.220913 l .8 2020-03-22 2020-03-22 Anesthesia Ame Liu 1.2.840.1 [id number] 84 5409180125 Methodi 12:47:00 16:31:00 Event Clint Graham 31056.1.[address] 3.430.2.7 Hospit a .3.142040 l .8 2020-03-22 2020-03-22 Surgery Obi Kerr 1.2.840.1 [id number] 610 5713903 [facility] 12:53:00 14:38:[address] 3.430.2.7 Hospit a .3.052203 l .8 2019-11-19 2019-11-19 Office CHELSEA York 1.2.840.[address] [place] [address] 10:50:53 15:23:52 Visit Oswald S AMBULATOR 350.1.13.21 College Y 0.2.7.2.686 of 725.6198689 [facility] 300 e 2019-11-19 2019-11-19 Office CHELSEA York 1.2.840.114 141730 10:50:53 15:23:52 Visit Oswald S AMBULATOR 350.1.13.21 Y 0.2.7.2.686 741.5874040 300 2019-11-11 2019-11-11 Emergency Wanda Henson [facility] 1.2.840.114 78 466425 17:16:00 22:21:00 Lisa Pineda 350.1.13.10 [place] 4.2.7.2.686 [place] 560.4614046 [facility] 2019-11-11 2019-11-11 Emergency Wanda Hneson [facility] 1.2.840.114 78 550210 [facility] 17:16:00 22:21:00 Lisa Pineda 350.1.13.10 i ty of [place] 4.2.7.2.686 [facility] 479.2657467 [place] [address] [address] 2019-11-11 2019-11-11 Emergency X Wanda HENSON [facility] ERT 647171 1704 Univers 17:16:00 17:16:00 ity of [facility] 2019-11-03 2019-11-03 Telephone Melany, 1.2.840.1 [id number] 2100 175625 Methodi 09:01:34 09:25:16 Consult Liss Baxter 83221.1.[address] 3.430.2.7 Hospit a .3.342631 l .8 2014-02-18 2014-02-18 Office [facility] 0062111 141 Memoria 00:00:00 00:00:00 Visit artie Marquez 089454 [facility] 2014-02-18 2014-02-18 Lab Report [facility] 1736 499924 Memoria 00:00:00 00:00:00 artie Marquez 251837 madhu [facility] 2013-01-23 2013-01-23 Lab Report [facility] 1702 048218 Memoria 00:00:00 00:00:00 artie Marquez 131158 [facility] Results Test Description Test Time Test Comments Results Result [facility] e Comments - XR CHEST 1 V 2020-05-31 14:08:00 [facility] : 1945 Sex: M FAX: Sekou Jeffery [phone] [place]: St: ADM Name: DARIEN HUYNH [facility] : 1945 Age/S: 74/M [address] [place] [address] Blvd Unit #: [id number] Loc: [address] [address] Phys: Sekou Curtis MD Acct: [id number] Dis Date: Status: ADM IN PHONE #: [phone] Exam Date: 05/31/20201405 FAX #: [phone] Reason: HD protocol, need to make sure no TB EXAMS: CPT CODE: [id number] XR CHEST 1 V 96210 EXAM: Single view AP chest. EXAM DATE: [...] By: Enedelia Orig Print D/T: S: 05/31/2020 (7540) PAGE 1 Signed Report - XR CHEST 1 V 2020-05-31 14:08:00 [facility] : 1945 Sex: M FAX: Sekou Jeffery [phone] [place]: St: DIS Name: DARIEN HUYNH [facility] : 1945 Age/S: 74/M [address] [place] [address] Blvd Unit #: [id number] Loc: [place] [address] Phys: Sekou Curtis MD Acct: [id number] Dis Date: Status: DIS IN PHONE #: [phone] Exam Date: 05/31/2020 1406 FAX #: [phone] Reason: HD protocol, need to make sure no TB EXAMS: CPT CODE: [id number] XR CHEST 1 V 94021 EXAM: Single view AP chest. EXAM DATE: [...] Technologist: Jude Barbour RT(R) Trnscrd Date/Time/By: 05/31/2020 (4473) : By: Enedelia Orig Print D/T: S: 05/31/2020 (8163) PAGE 1 Signed Report BASIC METABOLIC PANEL [...] code = CA) 8.5 mg/dL 8.0-10.5 N [id number] 05:15:00 Test Item Value Reference Range Interpretation Comments ALBUMIN (test code = ALB) 3.10 g/dL 3.4-5.0 L [id number] 05:15:00 Test Item Value Reference Range Interpretation Comments PREALBUMIN (test code = PREALB) 27.0 mg/dL 16.0-40.0 N [id number] 23:17:00 Test Item Value Reference Range Interpretation Comments GLUBED (test code = 95 MG/DL 70-110 N Performe d by certified GLUBED) pump and still operator at [facility] BASIC METABOLIC [id number] 09:36:00 Test Item Value Reference Range Interpretation [...] sly reported CA) result: 8.2 mg/dLEdited by: [facility] on 05/29/20:937740 / 0935: CA previ ously reported as: 8. 2 mg/dL BASIC METABOLIC [id number] 07:53:00 Test Item Value Reference Range Interpretation [...] 8.2 mg/dL 8.0-10.5 N CA) BASIC METABOLIC [id number] 04:28:00 Test Item Value Reference Range Interpretation [...] 9.3 mg/dL 8.0-10.5 N CA) CBC W/AUTO [id number] 08:31:00 Test Item Value Reference Range Interpretation [...] (test code NO = MDIFF) BASIC METABOLIC [id number] 07:59:00 Test Item Value Reference Range Interpretation [...] CA) - USG NDL PLACEMENT (Bxg/Asp)2020-05-24 15:12:00 [facility] : 1945 Sex: M Name: [facility] 1945 Age/S: 74 / M [address] [place] [address] Unit #: [id number] Loc: [place] [address] Phys: Albaro Sheikhnie NPAcct: [id number] Dis Date: Status: ADM IN PHONE #:[phone] Exam Date: 05/24/2020 1434 FAX #: [phone] Reason: right aka fluid collection EXAMS: CPT CODE: [id number] USG NDL PLACEMENT (Bxg/Asp) 69380 PROCEDURE: Ultrasound-guided right knee stump fluid collection. [...] Signed Report- USG NDL PLACEMENT (Bxg/Asp)2020-05-24 15:12:00 [facility] : 1945 Sex: M Name: DARIEN HUYNH [facility] [place] : 1945 Age/S: 74 / M [address] [place] [address] Bl Unit #: [id number] Loc: [place] [address] Phys: Jonathan Sheikh NPAcct: [id number] Dis Date: Status: DIS IN PHONE #:[phone] Exam Date: 05/24/2020 1434 FAX #: [phone] Reason: right aka fluid collection EXAMS: CPT CODE: [id number] USG NDL PLACEMENT (Bxg/Asp) 21964 PROCEDURE: Ultrasound-guided right knee stump fluid collection. 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 INDICATION: Right [...] iterative reconstruction techniques. DLP: 566 mGy-cm FINDINGS: Vxfms-frw-wkzr amputation has been performed. A permeative pattern [...] Mena M.D. CC: Sekou Curtis; Jonathan Sheikh CONTACT LENS ASSISTANT Technologist:David Aguirre, (R)(CT) CTDI: DLP: Trnscb Date/Time: 05/23/2020 (1801) Michael.[email or web address] Orig Print D/T: S: 05/23/2020 (1805) PAGE 1 Signed Report- CT LOWER EXTRM W/O C [id number] 18:02:00 [facility] : 1945 Sex: M Name: DARIEN HUYNH [facility] : 1945 Age/S: 74 / M [address] [place] [address] Bl Unit #: [id number] Loc: [place] [address] Phys: Jonathan Sheikh NPAcct: [id number] Dis Date: Status: DIS IN PHONE #:[phone] Exam Date: 05/23/2020 1728 FAX #: [phone] Reason: right bka, r/o fluid collection EXAMS: CPT CODE: [id number] [place] L[place]TR[place] W/[place] [address] [place] right femur without contrast. INDICATION: Right [...] iterative reconstruction techniques. DLP: 566 mGy-cm FINDINGS: Monpy-yby-khpe amputation has been performed. A permeative pattern [...] Mena M.D. CC: Sekou Curtis; Jonathan Sheikh CONTACT LENS ASSISTANT Technologist:David Aguirre, RT(R)(CT) CTDI: DLP: Trnscb Date/Time: 05/23/2020 (1801) [email or web address] Orig Print D/T: S: 05/23/2020 (6948) PAGE 1 Signed ReportBASIC METABOLIC [id number] 13:38:00 Test Item Value Reference Range Interpretation [...] code = 9.6 mg/dL 8.0-10.5 N CA) [id number] 13:38:00 Test Item Value Reference Range Interpretation Comments PHOSPHOROUS (test code = PHOS) 3.9 MG/DL 2.5-4.9 N [id number] 13:36:00 Test Item Value Reference Range Interpretation Comments ALBUMIN (test code = ALB) 3.20 g/dL 3.4-5.0 L [id number] 13:36:00 Test Item Value Reference Range Interpretation Comments PREALBUMIN (test code = PREALB) 14.3 mg/dL 16.0-40.0 L CBC W/AUTO [id number] 13:15:00 Test Item Value Reference Range Interpretation [...] (test code NO = MDIFF) SED RATE [id number] 08:19:00 Test Item Value Reference Range Interpretation Comments SED RATE JOSSY (test code = 114 mm/hr 0-15 H SEDW) [id number] 08:09:00 Test Item Value Reference Range Interpretation Comments PREALBUMIN (test code = PREALB) 13.1 mg/dL 16.0-40.0 L C REACTIVE [id number] 08:08:00 Test Item Value Reference Range Interpretation Comments C REACTIVE PROTEIN (test code = 192.0 mg/L <10.0 H CRP) CBC W/AUTO [id number] 07:57:00 Test Item Value Reference Range Interpretation [...] MDIFF) - XR HIP W/PEL UNI 2+V [id number] 18:35:00 [facility] : 1945 Sex: M FAX: Sekou Jeffery [phone] [place]: St: ADM FAX: Dusty Smiley [phone] Name: DARIEN HUYNH [facility] [place] : 1945 Age/S: 74/M [address] [place], [place] [address]vd Unit #: [id number] Loc: [address] [place] [address] Phys: Dusty Smiley NP Acct: [id number] Dis Date: Status: ADM IN PHONE #: [phone] Exam Date: 05/21/2020 1735 FAX #: [phone] Reason: left hip pain EXAMS:CPT CODE: [id number] XR HIP W/PEL UNI 2+[place] [address] 2+ RADIOGRAPHIC VIEWS LEFT HIP INDICATION: left [...] Signed Report- XR HIP W/PEL UNI 2+V [id number] 18:35:00 [facility] : 1945 Sex: M FAX: Rubina Juan AntonioSekou anna Yaritza [phone] [place]: St: DIS FAX: Dusty Smiley [phone] Name: DARIEN HUYNH [facility] : 1945 Age/S: 74/M [address] [place] [address] Unit #: [id number] Loc: [place] [address] Phys: Dusty Smiley NP Acct: [id number] Dis Date: Status: DIS IN PHONE #: [phone] Exam Date: 05/21/20201734 FAX #: [phone] Reason: left hip pain EXAMS:CPT CODE: [id number] XR HIP W/PEL UNI 2+[place] [address] 2+ RADIOGRAPHIC VIEWS LEFT HIP INDICATION: left [...] (test code NO = MDIFF) BASIC METABOLIC [id number] 07:40:00 Test Item Value Reference Range Interpretation [...] 9.1 mg/dL 8.0-10.5 N CA) COMPREHENSIVE METABOLIC [id number] 06:03:00 Test Item Value Reference Range Interpretation [...] TOTAL (test code = ALKP) CBC W/AUTO [id number] 05:49:00 Test Item Value Reference Range Interpretation [...] (test code NO = MDIFF) BASIC METABOLIC [id number] 08:43:00 Test Item Value Reference Range Interpretation [...] code = 9.0 mg/dL 8.0-10.5 N CA) [id number] 08:43:00 Test Item Value Reference Range Interpretation Comments PHOSPHOROUS (test code = PHOS) 4.7 MG/DL 2.5-4.9 N CBC W/AUTO [id number] 08:29:00 Test Item Value Reference Range Interpretation [...] (test code NO = MDIFF) BASIC METABOLIC [id number] 07:42:00 Test Item Value Reference Range Interpretation [...] 9.5 mg/dL 8.0-10.5 N CA) BASIC METABOLIC [id number] 09:55:00 Test Item Value Reference Range Interpretation [...] code = 8.7 mg/dL 8.0-10.5 N CA) [id number] 09:55:00 Test Item Value Reference Range Interpretation Comments PHOSPHOROUS (test code = PHOS) 5.2 MG/DL 2.5-4.9 H [id number] 09:55:00 Test Item Value Reference Range Interpretation Comments MAGNESIUM (test code = MAG) 1.89 mg/dL 1.80-2.40 N CBC W/AUTO [id number] 09:28:00 Test Item Value Reference Range Interpretation [...] REQUIRED (test code = MDIFF) CBC W/AUTO [id number] 09:28:00 Test Item Value Reference Range Interpretation [...] (test code NO = MDIFF) ACUTE HEPATITIS [id number] 13:08:00 Test Item Value Reference Range Interpretation [...] COMMENTS: At start of hemodialysisAB HEPATITIS B [id number] 13:08:00 Test Item Value Reference Range Interpretation Comments AB HEPATITIS B 22.1 mIU/mL See_Comment Status of I mmunity SURFACE (test code = HBSAB) Anti-HBs Level --- I nconsis tent with Immun ity 0 .0 - 9.9Consistent w ith Immunity >9.9Performed A t: HD [facility] [address] [id number] jaswinder Peralta MD Ph:[phone] [Automated mess age] The system Graine de Cadeaux generated this result transmitted ref erence range: Immunity >9.9. The reference r za was not used to interpret this result as normal/abnor mal. COMMENTS: At start of hemodialysisACUTE HEPATITIS [id number] 10:00:00 Test Item Value Reference Range Interpretation [...] COMMENTS: At start of hemodialysisAB HEPATITIS B [id number] 10:00:00 Test Item Value Reference Range Interpretation Comments AB HEPATITIS B SURFACE (test code = HBSAB) COMMENTS: At start of hemodialysisBASIC METABOLIC [id number] 09:23:00 Test Item Value Reference Range Interpretation [...] 8.5 mg/dL 8.0-10.5 N CA) CBC W/AUTO [id number] 09:16:00 Test Item Value Reference Range Interpretation [...] (test code NO = MDIFF) RENAL FUNCTION [id number] 06:58:00 Test Item Value Reference Range Interpretation [...] code = 3.0 MG/DL 2.5-4.9 N PHOS) [id number] 06:58:00 Test Item Value Reference Range Interpretation Comments MAGNESIUM (test code = MAG) 1.81 mg/dL 1.80-2.40 N CBC W/AUTO [id number] 06:49:00 Test Item Value Reference Range Interpretation [...] (test code NO = MDIFF) CBC W/AUTO [id number] 06:45:00 Test Item Value Reference Range Interpretation [...] code = MDIFF) - CT HEAD/BRAIN W/O [id number] 04:29:00 [facility] : 1945 Sex: M Name: DARIEN HUYNH [facility] [place] : 1945 Age/S: 74 / M [address] [place] [address] Unit #: [id number] Loc: [place] [address] Phys: [facility]ust[phone] Dis Date: Status: ADM IN PHONE #:[phone] Exam Date: 05/13/2020413 FAX #: [phone] Reason: TRAUMA EXAMS: CPT CODE: [id number] CT HEAD/BRAIN W/O CONT 62470 STUDY: - CT HEAD/BRAIN W/O CONT 05/13/2020 5:00 AM Ordering Physician: Fausto Espino MD Patient Name: DARIEN HUYNH MR: [id number] : 1945; Age: 74 years y/o Male [...] 1 Signed Report (CONTINUED) Name: DARIEN HUYNH [facility] [place] : 1945 Age/S: 74 / M [address] [place] [address] Unit #: [id number] Loc: [place] [address] Phys: Fausto Espino MD Acct: [id number] Dis Date: Status: ADM IN PHONE #: [phone] Exam Date: FAX #: [phone] Reason: TRAUMA EXAMS: CPT CODE: [id number] CT HEAD/BRAINW/O CONT 11201 <Continued> MASTOIDS: Clear. ORBITS: The globes are [...] PAGE 2 Signed Report- CT HEAD/BRAIN W/O [id number] 04:29:00 [facility] : 1945 Sex: M Name: DARIEN HUYNH : 1945 Age/S: 74 / M [address] [place] [address] Unit #: [id number] Loc: [place] [address] Phys: [facility]usto [facility] [id number] Dis Date: Status: DIS IN PHONE #:[phone] Exam Date: 05/13/2020 0414 FAX #: [phone] Reason: TRAUMA EXAMS: CPT CODE: [id number] CT HEAD/BRAIN W/O CONT 65403 STUDY: - CT HEAD/BRAIN W/O CONT 05/13/2020 5:00 AM Ordering Physician: Fausto Espino MD Patient Name: DARIEN HUYNH MR: [id number] : 1945; Age: 74 years y/o Male [...] HUYNH : 1945 Age/S: 74 / M [address] [place] [address] Blvd Unit #: [id number] Loc: [place] [address] Phys: Fausto Espino MD Acct: [id number] Dis Date: Status: DIS IN PHONE #: [phone] Exam Date: FAX #: [phone] Reason: TRAUMA EXAMS: CPT CODE: [id number] CT HEAD/BRAINW/O CONT 27503 <Continued> MASTOIDS: Clear. ORBITS: The globes are [...] PAGE 2 Signed ReportCOVID 19 Asymptomatic IH [id number] 03:09:00 Test Item Value Reference Range Interpretation [...] high or waivedcomplexit y tests. BASIC METABOLIC [id number] 02:14:00 Test Item Value Reference Range Interpretation [...] 8.5 mg/dL 8.0-10.5 N CA) HEPATIC FUNCTION [id number] 02:14:00 Test Item Value Reference Range Interpretation [...] 112 IUnit/L 20-125 N code = ALKP) [id number] 02:14:00 Test Item Value Reference Range Interpretation Comments LIPASE (test code = LIP) 185 U/L 13-57 H [id number] 02:14:00 Test Item Value Reference Range Interpretation [...] or Legal orEmployment ev aluation purposes. PROTHROMBIN [id number] 02:11:00 Test Item Value Reference Range Interpretation [...] o prevent recurre nt infarct). THROMBOPLASTIN TIME [id number] 02:11:00 Test Item Value Reference Range Interpretation Comments THROMBOPLASTIN TIME 31.8 Seconds 25.0-39.5 N Ther apeutic PARTIAL (test code = Range: 50.4 - 88.3 PTT) Seconds Effective 05/27/2018 PROTHROMBIN [id number] 02:10:00 Test Item Value Reference Range Interpretation [...] o prevent recurre nt infarct). THROMBOPLASTIN TIME [id number] 02:10:00 Test Item Value Reference Range Interpretation Comments THROMBOPLASTIN TIME PARTIAL (test Seconds 25.0-39.5 code = PTT) CBC W/AUTO [id number] 01:59:00 Test Item Value Reference Range Interpretation [...] NO = MDIFF) - CT HEAD/BRAIN W/O [id number] 23:15:00 [facility] : 1945 Sex: M Name: DARIEN HUY[facility] : 1945 Age/S: 74 / M [address] [place] Unit #: [id number] Loc: [place] [address] Phys: Undefined Provider Acct: [id number] Dis Date: Status: REG REF PHONE #: [phone] Exam Date: 05/12/20201 FAX #: Reason: s/p fall Report Has Been Amended EXAMS: CPT: [id number] CT HEAD/BRAIN W/O CONT 57604 Addendum - 05/12/2020 SIGNED 05/12/[address]: [id number]/CTHDBRWO Findings were notified to journeyman powerhouse operator Huyen at 11:15 PM on 05/12/2020. at 2315 Reported and signed by: Kaela Lindsey M.D. Transcribed: 05/12/2020 (4024) t.[email or web address].[email or web address] Report EXAM: - CT HEAD/BRAIN W/O [...] HUYNH : 1945 Age/S: 74 / M [address] [place] Unit #: [id number] Loc: Tony Flower[address]84 Phys: Undefined Provider Acct: [id number] Dis Date: Status: REG REF PHONE #: [phone] Exam Date: 05/12/20207 FAX #: Reason: s/p fall Report Has Been Amended EXAMS: CPT: [id number] CT HEAD/BRAIN W/O CONT 23786 <Continued> frontoparietal lobe without midline shift or [...] PAGE 2 Signed Report- CT HEAD/BRAIN W/O [id number] 23:15:00 [facility] : 1945 Sex: M Name: DARIEN HUYNH [facility] : 1945 Age/S: 74 / M [address] [place] Unit #: [id number] Loc: [place] [address] Phys: Undefined Provider Acct: [id number] Dis Date: Status: REG REF PHONE #: [phone] Exam Date: 05/12/20202213 FAX #: Reason: s/p fall Report Has Been Amended EXAMS: CPT: [id number] CT HEAD/BRAIN W/O CONT 84339 Addendum - 05/12/2020 SIGNED 05/12/[address]: [id number]/CTHDBRWO Findings were notified to journeyman powerhouse operator Huyen at 11:15 PM on 05/12/2020. at 2315 Reported and signed by: Kaela Lindsey M.D. Transcribed: 05/12/2020 (7365) [email or web address] Report EXAM: - CT HEAD/BRAIN W/O [...] HUYNH : 1945 Age/S: 74 / M [address] [place] Unit #: [id number] Loc: [place] Ce46791 Phys: Undefined Provider Acct: [id number] Dis Date: Status: REG REF PHONE #: [phone] Exam Date: 05/12/20202213 FAX #: Reason: s/p fall Report Has Been Amended EXAMS: CPT: [id number] CT HEAD/BRAIN W/O CONT 25880 <Continued> frontoparietal lobe without midline shift or [...] PAGE 2 Signed Report- CT HEAD/BRAIN W/O [id number] 22:51:00 [facility] : 1945 Sex: M Name: DARIEN HUY[facility] : 1945 Age/S: 74 / M [address] [address] [place] Unit #: [id number] Loc: [place] [address] Phys: Undefined Provider Acct: [id number] Dis Date: Status: REG REF PHONE #: [phone] Exam Date: 05/12/2020 1156 FAX #: Reason: s/p fall EXAMS: CPT: [id number] CT HEAD/BRAIN W/O CONT 17482 EXAM: -CT HEAD/BRAIN W/O CONT LOCATION: H61 [...] HUYNH : 1945 Age/S: 74 / M [address] [facility] Unit #: [id number] Loc: [place] [address] Phys: Undefined Provider Acct: [id number] Dis Date: Status: REG REF PHONE #: [phone] Exam Date: 05/12/2020 9667 FAX #: Reason: s/p fall EXAMS: CPT: [id number] CT HEAD/BRAIN W/O CONT 36860 <Continued> Electronically Signedby Armida Lindsey on 05/12/2020 at 2251 Reported and signed by: Kaela Lindsey M.D. CC: Technologist:Liss Jordan RT(R)(CT); ... CTDI: DLP: Trnscb Date/Time: 05/12/2020 (2250) [email or web address] Orig Print D/T: S: 05/12/2020 (4320) PAGE 2 Signed Report- CT C-SPINE W/O [id number] 22:40:00 [facility] : 1945 Sex: M Name: DARIEN HUY[facility] : 1945 Age/S: 74 / M [address] [place] Unit #: [id number] Loc: [place] [address] Phys: Undefined Provider Acct: [id number] Dis Date: Status: REG REF PHONE #: [phone] Exam Date: 05/12/20202213 FAX #: Reason: s/p fall EXAMS: CPT: [id number] CT C-SPINE W/O CONT 66889 EXAM: -CT C-SPINE W/O CONT LOCATION: [facility] CLINICAL HISTORY/INDICATION: Fall withpain. COMPARISON: None TECHNIQUE: [...] HUYNH : 1945 Age/S: 74 / M [address] [place] Unit #: [id number] Loc: Tony F[place] [address] Phys: Undefined Provider Acct: [id number] Dis Date: Status: REG REF PHONE #: [phone] Exam Date: 05/12/20202213 FAX #: Reason: s/p fall EXAMS: CPT: [id number] CT C- SPINE W/O CONT 32628 <Continued> spinal canal stenosis. C3-C4: Diffuse disc [...] (2239) [email or web address] Orig Print D/T: S: 05/12/2020 (8555) PAGE 2 Signed Report- CT C-SPINE W/O [id number] 22:40:00 [facility] : 1945 Sex: M Name: DARIEN HUY[facility] : 1945 Age/S: 74 / M [address] [facility] Unit #: [id number] Loc: [place] [address] Phys: Undefined Provider Acct: [id number] Dis Date: Status: REG REF PHONE #: [phone] Exam Date: 05/12/20202213 FAX #: Reason: s/p fall EXAMS: CPT: [id number] CT C-SPINE W/O CONT 14602 EXAM: -CT C-SPINE W/O CONT LOCATION: H61 [...] 1 Signed Report (CONTINUED) Name: DARIEN HUYNH [facility] : 1945 Age/S: 74 / M [address] [place] Unit #: [id number] Loc: [place] [address] Phys: Undefined Provider Acct: [id number] Dis Date: Status: REG REF PHONE #: [phone] Exam Date: 05/12/20206 FAX #: Reason: s/p fall EXAMS: CPT: [id number] CT C- SPINE W/O CONT 30294 <Continued> spinal canal stenosis. C3-C4: Diffuse disc [...] (2239) [email or web address] Orig Print D/T: S: 05/12/2020 (6924) PAGE 2 Signed ReportAFB enapvat6954-08-73 05:13:59 Test Item Value Reference Range Interpretation Comments AFB culture isolate No growth after 6 (test code = 543-9) weeks of incubation. [facility] vakgkaa3919-83-33 06:15:49 Test Item Value Reference Range Interpretation Comments Fungus culture isolate No growth after 4 (test code = 1441) weeks of incubation. [facility] [place] < 1 Snei6976-26-07 21:39:42EXAMINATION: OR FL < 1 HOUR C-arm [...] be issued by the physician performing the procedure.[id number] Anaerobic msdreoe3504-95-05 14:47:42 Test Item Value Reference Range Interpretation Comments Anaerobic culture No anaerobic organisms isolate (test code = isolated. 552) [facility] HospitalAF[facility] dzitk4032-25-83 07:48:01 Test Item Value Reference Range Interpretation Comments AFB stain (test code = No acid fast bacilli 676-7) (AFB) seen. [facility] ycmhsdc8497-04-81 07:48:01 Test Item Value Reference Range Interpretation Comments Aerobic culture isolate No growth after 3 (test code = 498) days. [facility] HospitalFungus wskzz9376-50-35 07:48:01 Test Item Value Reference Range Interpretation Comments Fungus smear (test code = No fungi observed. 1443) [facility] HospitalG[facility] uuwkv3476-06-59 07:48:01Gram stain isolateFew WBC'sNo organisms seen Comment: Specimen InformationSpecimen Source: TissueSpecimen Site: Femur: Right femoral canal tissue [facility] [id number] 21:19:54 Test Item Value Reference Range Interpretation Comments Case number (test code = [id number]) Surgical pathology See link below for report (test code = PDF Lab Report 2255) Result status (test code This is Final Report = [id number]) for [id number] [facility] carotid mornww7423-52-64 00:39:00 Vascular Ultrasound Laboratory Carotid Artery Duplex Report [address] [place] [address] For supplier quality specialist purposes, the categorization of the degree of the stenosis of this exam is based on criteria described in the IAC carotid stenosis grading white paper( www.intersocietal.org/Vascular) and Shagufta Andrews., Ritu Armendariz., et al. Carotid artery stenosis: maya-scale and Doppler US diagnosis--Society of Radiologists in Ultrasound Consensus Conference. Radiology. 2003 Nov; 229(2):340-6. Pat.Name: DARIEN HUYNH Pat.ID: [id number] .Date: 03/23/2020 Refer.MD: BEAR MARIEE MD Exam Time: 11:25:00 AM Study Type:Carotid Height: 68in Weight: 186lb BSA: 1.98 m2 Age: 9 1945,74Y Sex: MALE Sonogrphr: NOEMI Chapman Pat. Stat.:Inpatient Room: [address] Vol: BE, CPT - 4: 21853 Echo Event ID:[id number] Order ID: [id number] Reason for Study:Cervical bruit, no prior carotid [...] EDV 23 cm/sLeft ICA Mid ICA Mid SZN363 cm/s Left ICA Prox ICA Prox PSV [...] Ultrasound Laboratory Carotid Artery Duplex Report [address] [place] [address] For supplier quality specialist purposes, the categorization of the degree of the stenosis of this exam is based on criteria described in the IAC carotid stenosis grading white paper( www.intersocietal.org/Vascular) and Shagufta Andrews., Ritu Armendariz., et al. Carotid artery stenosis: maya-scale and Doppler US diagnosis--Society of Radiologists in Ultrasound Consensus Conference. Radiology. 2003 Nov; 229(2):340-6. Pat.Name: DARIEN HUYNH Pat.ID: [id number] .Date: 03/23/2020 Refer.MD: BEAR MARIEE MD Exam Time: 11:25:00 AM Study Type:Carotid Height: 68in Weight: 186lb BSA: 1.98 m2 Age: 9 1945,74Y Sex: MALE Sonogrphr: NOEMI Chapman Pat. Stat.:Inpatient Room: [address] Vol: BE, CPT - 4: 96463 Echo Event ID:[id number] Order ID: [id number] Reason for Study:Cervical bruit, no prior carotid [...] 1.14 Signed 03/23/2020 06:39 PMAngel Liang MD, [facility]2021-02-09 19:25:28Tejal Simpson Sing 03/22/2020 1:45 PMAirway Date/Time: 03/22/2020 1:00 PM Location: OR Performed by: BAKER/AAAnesthesiologist: Tahmina Mccloud/BAKER/AA: Tjeal SimpsonAuthorized by: Liu Mccloud Urgency: ElectiveDifficult Airway: [...] First attempt using Sheikh 2 blade by BAKER. Second attempt with MD with MAC 3. Grade 3b view, secondary to neck stiffness.Grade 1 view with glidescope. ETT passed atraumatically.[facility] HospitalTransthoracic Echocardiogram Complete, (w Contrast, Strain and 3D if needed)2020-03-19 20:20:00 Echocardiography Report [address]Name: DARIEN HUYNH Pat.ID: [id number] .Date: 03/19/2020 Refer.MD: CLINT KING DO Exam Time: 11:43:00 AM Study Type:Routine Echo Height: 68in Weight: 185.61lb BSA: 1.98 m2 Age: [birth year],74Y Sex: MALE BP: 110/57 HR: 70 bpm Sonogrphr: NILSON Conde. Stat.:Inpatient Room: [facility] Study Status:Final Echo Event ID:[id number] Order ID: [id number] Reason for Study:Perioperative function eval without cardiac [...] estimate PA systolic pressure. MEASUREMENTS:------- 2DParasternal Long Dix Ao An 2.2 cm LVPWd 1.3 cm [...] 03/19/2020 2:20 PM CST Echocardiography Report [address] [place] [address] Pat.Name: DARIEN HUYNHNess Pat.ID: [id number] .Date: 03/19/2020 Refer.MD: CLINT KING DO Exam Time: 11:43:00 AM Study Type:Routine Echo Height: 68in Weight:185.61lb BSA: 1.98 m2 Age: 9 1945,74Y Sex: MALE BP: 110/57 HR: 70 bpm Sonogrphr: NILSON Conde Pat. Stat.:Inpatient Room: [facility] Study Status:Final Echo Event ID:[id number] Order ID: [id number] Reason for Study:Perioperative function eval without cardiac [...] estimate PA systolic pressure. MEASUREMENTS: 2DParasternal Long Dix Ao An 2.2 cm LVPWd 1.3 cm [...] 3.7 l/m/m2 Signed 03/19/2020 02:20 Dodie Sarabia M.D.[facility] DistrictI Lower Extremity Wo Contrast Nkgcp4176-30-66 13:07:30EXAMINATION: MRI LOWER EXTREMITY WO CONTRAST RIGHT [...] medially, beyond the cortex of the tibia.[id number] THIGH WO CONTRAST AXLED1304-35-62 12:29:55EXAMINATION: MRI KNEE WO CONTRAST RIGHT, MRI [...] with the fluid surrounding the tibial stem. [facility]-PNUCSW2Hg Interface, Radiology Results 03/19/2020 6:33 AM CST [...] communicate with the fluid surrounding the tibial stem.RM-XXLVOT0GxkgtxscwPalo [facility]into [facility] Knee Right Wo Fipkdrxs5850-78-82 12:29:55EXAMINATION: MRI KNEE WO CONTRAST RIGHT, MRI [...] with the fluid surrounding the tibial stem. [facility]- NZLZDU4Bb Interface, Radiology Results Incoming - 03/19/2020 6:33 [...] communicate with the fluid surrounding the tibial stem.[facility]-LVPGQJ1PklxvxocxCHI St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 Infection cannot be excluded. There is a joint effusion present. There is no acute fracture or dislocation. There are vascular calcifications. [id number] J8Z Interface, Radiology Results Incoming 03/18/2020 5:17 [...] acute fracture or dislocation. 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 Infection cannot be excluded. Bones are osteopenic. No definite acute fracture is seen. 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 Infection cannot be excluded. Bones are osteopenic. No definite acute fracture is seen.[id number] Texas Spine & Surgical HospitalBJ C3827-53-23 02:22:00 Test Item Value Reference Range Interpretation Comments TROPONIN I (test <0.012 See_Comment [Automated code = 2268995046) message] The system which generated this result [...] ? Lab Interpretation Normal (test code = 83647-9) [facility] [id number] 02:20:00 Test Item Value Reference Range Interpretation Comments TROPONIN I (test <0.012 See_Comment [Automated code = 7132732072) message] The system which generated this result [...] ? Lab Interpretation Normal (test code = 84519-1) [facility] Test Item Value Reference Range Interpretation Comments APPEARANCE (test code = Clear Clear 6565132532) COLOR (test code = Yellow Yellow 4071973101) PH (test code = 4.8-8.0 2799309829) SP GRAVITY (test code = 1.003-1.030 6483191568) GLU U QUAL (test code = Normal Normal 5029300729) BLOOD (test code = Negative Negative 9394577249) KETONES (test code = Negative Negative 7503568494) PROTEIN (test code = 100 mg/dL Negative A 2887-8) UROBILIN (test code = Normal Normal 5216540168) BILIRUBIN (test code = Negative Negative 6004753593) NITRITE (test code = Negative Negative 0936133392) LEUK AJ (test code = Negative Negative 2683451252) RBC/HPF (test code = See_Comment H [Autom ated message] 4539201949) The system Graine de Cadeaux generated this result transmit amado reference range : 0 - 3 HPF. The refe rence range was not u sed to interpret th is result as normal/abnormal . WBC/HPF (test code = <1 See_Comment [Autom ated message] 6559387840) The system Graine de Cadeaux generated this result transmit amado reference range : 0 - 5 HPF. The refe rence range was not u sed to interpret th is result as normal/abnormal . BACTERIA (test code = Few Negative A 5592506023) MUCOUS (test code = Slight Negative LPF A 3692296596) SQ EPITH (test code = <1 HPF 2917006714) Lab Interpretation (test Abnormal code = 08848-7) [facility] 00:21:00 Test Item Value Reference Range Interpretation Comments APPEARANCE (test code = Clear Clear 1492282212) COLOR (test code = Yellow Yellow 4232918873) PH (test code = 4.8-8.0 1865259763) SP GRAVITY (test code = 1.003-1.030 3286928514) GLU U QUAL (test code = Normal Normal 0997894293) BLOOD (test code = Negative Negative 1027878314) KETONES (test code = Negative Negative 4779820363) PROTEIN (test code = 100 mg/dL Negative A 2887-8) UROBILIN (test code = Normal Normal 3253176584) BILIRUBIN (test code = Negative Negative 1422232620) NITRITE (test code = Negative Negative 3417124879) LEUK AJ (test code = Negative Negative 9897423894) RBC/HPF (test code = See_Comment H [Autom ated message] 0477459428) The system Graine de Cadeaux generated this result transmit amado reference range : 0 - 3 HPF. The refe rence range was not u sed to interpret th is result as normal/abnormal . WBC/HPF (test code = <1 See_Comment [Autom ated message] 9686442210) The system Graine de Cadeaux generated this result transmit amado reference range : 0 - 5 HPF. The refe rence range was not u sed to interpret th is result as normal/abnormal . BACTERIA (test code = Few Negative A 9501885322) MUCOUS (test code = Slight Negative LPF A 3591516812) SQ EPITH (test code = <1 HPF 5205064873) Lab Interpretation (test Abnormal code = 29061-8) [facility] 1 [id number] 23:24:26 No acute cardiopulmonary abnormality. Preliminary Report [...] this study and agree with theabove report.[facility] CHEST 1 OF8426-69-06 23:24:26 No acute cardiopulmonary abnormality. Preliminary Report [...] this study and agree with theabove report.[facility] COMP. METABOLIC PANEL (13972)2019-11-11 23:16:00 Test Item Value Reference Range Interpretation Comments NA (test code = 137 mmol/L 135-145 8973342654) K (test code = 4.0 mmol/L 3.5-5 0178002428) CL (test code = 94 mmol/L 98-108 L 5368380657) CO2 TOTAL (test code = 29 mmol/L 23-31 9117247534) AGAP (test code = 2-16 1012535364) BUN (test code = 63 mg/dL 7-23 H 9691520152) GLUCOSE (test code = 142 mg/dL 70-110 H 3507509083) CREATININE (test code = 5.82 mg/dL 0.6-1.25 H 0586275743) TOTAL BILI (test code = 0.4 mg/dL 0.1-1.8 0406280389) CALCIUM (test code = 9.8 mg/dL 8.6-10.6 7956159620) T PROTEIN (test code = 7.5 g/dL 6.3-8.2 8423227773) ALBUMIN (test code = 4.2 g/dL 3.5-5 5724977211) ALK PHOS (test code = 100 U/L 34-122 5076916780) ALTv (test code = 14 U/L 5-50 1742-6) AST(SGOT) (test code = 27 U/L 13-40 7013529463) eGFR Calculation mL/min/1.73m2 (Non-) (test code = 7582764552) eGFR Calculation mL/min/1.73m2 () (test code = 9332930704) JACQUELYN (test code = JACQUELYN) Association of [...] tests). Lab Interpretation Abnormal (test code = 66097-1) [facility]2020-[facility]-30 23:16:00 Test Item Value Reference Range Interpretation Comments MAGNESIUM (test code = 6806659417) 2.5 mg/dL 1.7-2.4 H Lab Interpretation (test code = Abnormal 44687-3) [facility] CenterCOMP[facility]OLIC PANEL (04508)2019-11-11 23:16:00 Test Item Value Reference Range Interpretation Comments NA (test code = 137 mmol/L 135-145 1245132564) K (test code = 4.0 mmol/L 3.5-5 1993131159) CL (test code = 94 mmol/L 98-108 L 4566138929) CO2 TOTAL (test code = 29 mmol/L 23-31 2567250876) AGAP (test code = 2-16 8519756903) BUN (test code = 63 mg/dL 7-23 H 2797310121) GLUCOSE (test code = 142 mg/dL 70-110 H 6872608251) CREATININE (test code = 5.82 mg/dL 0.6-1.25 H 7344479782) TOTAL BILI (test code = 0.4 mg/dL 0.1-1.9 5605492811) CALCIUM (test code = 9.8 mg/dL 8.6-10.6 1274774835) T PROTEIN (test code = 7.5 g/dL 6.3-8.2 9932065987) ALBUMIN (test code = 4.2 g/dL 3.5-5 8924289646) ALK PHOS (test code = 100 U/L 34-122 5788332038) ALTv (test code = 14 U/L 5-50 1742-6) AST(SGOT) (test code = 27 U/L 13-40 9183781196) eGFR Calculation mL/min/1.73m2 (Non-) (test code = 1589029174) eGFR Calculation mL/min/1.73m2 () (test code = 1988475932) JACQUELYN (test code = JACQEULYN) Association of Glomerular Filtration Rate (GFR) and [...] tests). Lab Interpretation Abnormal (test code = 79601-4) [facility]2020-09-30 23:16:00 Test Item Value Reference Range Interpretation Comments MAGNESIUM (test code = 8636691974) 2.5 mg/dL 1.7-2.4 H Lab Interpretation (test code = Abnormal 22685-7) [facility] WITH CDBF6780-27-65 22:53:00 Test Item Value Reference Range Interpretation Comments WBC (test code = See_Comment [Automated 3409-2) message] The sy stem which generated this result transmitted reference range : 4.20 - 10.70 10*3/?L. The reference range was not used to interpret this result as normal/abnormal . RBC (test code = See_Comment L [Automated 419-8) message] The sy stem which generated this [...] RDW-SD (test code = 46.1 fL 38.5-51.6 61345-3) RDW-CV (test code = 13.9 % 12.1-15.4 788-0) PLT (test code = See_Comment [Automated 777-3) message] The sy stem which generated this result transmitted reference range : 150 - 328 10*3/ ?L. The reference r za was not used to interpret this result as normal/abnormal . MPV (test code = 8.7 fL 9.8-13 L 71299-7) NRBC/100 WBC (test See_Comment [Automat ed code = 0705303027) message] The system which generated this result transmitted reference range : 0.0 - 10.0 /100 WBCs. The refer ence range was not u sed to interpret th is result as normal/abnormal . NRBC x10^3 (test code <0.01 See_Comment [Auto mated = 9514893918) message] The s ystem which generated this result transmitted reference range : 10*3/?L. The reference range was not used to interpret this result as normal/abnormal . GRAN MAT (NEUT) % 79.0 % (test code = 770-8) IMM GRAN % (test code 0.50 % = 3608299864) LYMPH % (test code = 7.3 % 736-9) MONO % (test code = 9.1 % 5905-5) EOS % (test code = 3.8 % 713-8) BASO % (test code = 0.3 % 706-2) GRAN MAT x10^3(ANC) 6.93 10*3/uL 1.99-6.95 (test code = 1216282715) IMM GRAN x10^3 (test 0.04 10*3/uL 0-0.06 code = 6010613853) LYMPH x10^3 (test code 0.64 10*3/uL 1.09-3.23 L = 731-0) MONO x10^3 (test code 0.80 10*3/uL 0.36-1.02 = 742-7) EOS x10^3 (test code = 0.33 10*3/uL 0.06-0.53 711-2) BASO x10^3 (test code 0.03 10*3/uL 0.01-0.09 = 704-7) Lab Interpretation Abnormal (test code = 43976-8) [facility] WITH JHGI6259-55-40 22:53:00 Test Item Value Reference Range Interpretation Comments WBC (test code = See_Comment [Automated 7090-2) message] The sy stem which generated this result transmitted reference range : 4.20 - 10.70 10*3/?L. The reference range was not used to interpret this result as normal/abnormal . RBC (test code = See_Comment L [Automated 769-8) message] The sy stem which generated this [...] RDW-SD (test code = 46.1 fL 38.5-51.6 73907-6) RDW-CV (test code = 13.9 % 12.1-15.4 788-0) PLT (test code = See_Comment [Automated 777-3) message] The sy stem which generated this result transmitted reference range : 150 - 328 10*3/ ?L. The reference r za was not used to interpret this result as normal/abnormal . MPV (test code = 8.7 fL 9.8-13 L 50929-3) NRBC/100 WBC (test See_Comment [Automat ed code = 7642953616) message] The system which generated this result transmitted reference range : 0.0 - 10.0 /100 WBCs. The refer ence range was not u sed to interpret th is result as normal/abnormal . NRBC x10^3 (test code <0.01 See_Comment [Auto mated = 3644281645) message] The s ystem which generated this result transmitted reference range : 10*3/?L. The reference range was not used to interpret this result as normal/abnormal . GRAN MAT (NEUT) % 79.0 % (test code = 770-8) IMM GRAN % (test code 0.50 % = 7098540496) LYMPH % (test code = 7.3 % 736-9) MONO % (test code = 9.1 % 5905-5) EOS % (test code = 3.8 % 713-8) BASO % (test code = 0.3 % 706-2) GRAN MAT x10^3(ANC) 6.93 10*3/uL 1.99-6.95 (test code = 3571081416) IMM GRAN x10^3 (test 0.04 10*3/uL 0-0.06 code = 8722275693) LYMPH x10^3 (test code 0.64 10*3/uL 1.09-3.23 L = 731-0) MONO x10^3 (test code 0.80 10*3/uL 0.36-1.02 = 742-7) EOS x10^3 (test code = 0.33 10*3/uL 0.06-0.53 711-2) BASO x10^3 (test code 0.03 10*3/uL 0.01-0.09 = 704-7) Lab Interpretation Abnormal (test code = 42656-3) [facility] [facility]OWER WITHOUT CONTRAST, RIGHT 2017-01-25 19:47:00FINAL [...] Jorge Kumar Verified Date/Time:01/25/2017 19:47:23 Reading Location: [address] Reading Room RAD, HIP, 2 VIEWS, APRIA0387-04-24 19:11:00Reason for exam:->FALLReason for exam:->HIP PAINShould this be performed at the bedside?->NoFINAL REPORT CLINICAL HISTORY: Trauma and pain COMPARISON: None. FINDINGS: Frontal view of the pelvis and a lateral view of the right hip are submitted. There is no acute fracture, malalignment or destructive bony lesion. Surgical clips overlie the right lower abdomen. Signed: Jorge Kumar Verified Date/Time: 01/25/2017 19:11:49 Reading Location: [address] Reading Room nlwjxosm3227-90-89 16:35:0032[facility] LvlguolDqiywwmed4564-48-70 16:35:05818Roovfnno PvxfjveMwiauvyqf9558-26-18 16:35:82520 MEQ/LMem[facility] Uknfiznle7821-93-59 16:35:004.3 MEQ/LMemorial BvijsfiQdtrtgrha7715-32-34 16:35:002.5[facility] QggzemtHntwlvlkd0820-64-96 16:35:0029[facility] Nifmsdmya2753-18-80 16:35:00 Test Item Value Reference Range Interpretation Comments BUN/CREAT (test code = BUN/CREAT) 08-05 [facility] ZobpareIbykfjwyv3514-88-43 16:35:004.2[facility] HermannChemistry 2014-02-18 16:35:008.9[facility] DniwdxvPfopfomkw4537-24-86 16:35:0036[facility] DbiywbqSqqgsyrlc4193-78-77 16:35:0025[facility] YfmymenNwtmxvlng5747-30-86 16:35:13007Hnthmdyw GitvnvmKlvflnhad4840-34-00 16:35:001.380[facility] Psnavxrql4052-36-20 16:35:002.00[facility] LhywyppZjwboelkyg9290-72-63 16:35:00 13.9[facility] QsmdbfoGvlrekerbu0380-69-04 16:35:0041.4[facility] HermannHematology 2014-02-18 16:35:06662 K/CMMMemorial GslveesZhtwlepl8570-78-63 16:35:00Non ReactiveMemorial PqkjfyuUwyfmxiok7913-30-97 16:35:39372Tmpnttxl HermannChemistry 2014-02-18 16:35:64188Cytgwrwt FwkdimgXdtbeuxmy6244-80-50 16:35:0032[facility] GrtjtwlHmzwsiylw0319-71-78 16:35:80369Swlvpjnm JbplqvnIonvjbnkx5086-85-54 16:35:55650 MEQ/LMemorial LcbbcrjHazedcjql7090-16-62 16:35:004.3 MEQ/LMemorial VquqtnkGbnftdqkx7625-27-95 16:35:002.5[facility] UvnljwcNvfohtagb7425-03-02 16:35:0029[facility] GybqxptXbxlgrrti9255-25-31 16:35:00 Test Item Value Reference Range Interpretation Comments BUN/CREAT (test code = BUN/CREAT) 12 1 6-25 [facility] GcgovesAbmsoxgsl8120-46-00 16:35:004.2[facility]annChemistry 2014-02-18 16:35:008.9[facility] TaxxebbZdxufnide7242-78-73 16:35:0036[facility] FqtchzwDihzvrhkt2193-26-38 16:35:0025[facility] WacvttaPedpfutmf5914-69-78 16:35:02384Yvdergya NpyaeguSiuoqxxkv5923-19-11 16:35:001.380[facility] [place] Gnikckheb0846-55-72 16:35:002.00[facility] TyudgvhFltfyqsczp7581-12-55 16:35:00 13.9[facility] PmhximiPugneywgxn0367-68-91 16:35:0041.4[facility]annHematology 2014-02-18 16:35:85787 K/CMMMemorial RilcxovJortuifu5024-18-11 16:35:00Non ReactiveMemorial GgisrvrLgqruhavg2034-00-58 16:35:37866Wzyrclwh HermannChemistry 2014-02-18 16:35:63580Zkzdesyt LzgelsiCoigbokzc3623-53-05 20:45:57313Jobqyctk QrijfnuStddauhxg4703-23-83 20:45:50901Oibflgrb IzzcatcXtkpvixgm5596-19-42 20:45:0023[facility] MxwwbzcZtkodoimp4547-88-54 20:45:75720Uezktmxi [place] Eyvznuvfb0043-96-51 20:45:47622Gxdcrvxd MdtrrrhVmznpcygz6131-65-18 20:45:0023 [facility] DjgezryXuudkjrob6503-88-05 20:45:00See Note mg/dLMemorial [place] Mazjosoyb8584-11-18 20:45:43315 MEQ/LMemorial MptezmbTxciaxuzf6388-26-68 20:45:004.5 MEQ/LMemorial PffhmruPcuvawdfp0047-00-90 20:45:001.8[facility] Igbmpvrmf0379-13-38 20:45:0030[facility] NvcufzoUafntokmy1327-48-20 20:45:00 Test Item Value Reference Range Interpretation Comments BUN/CREAT (test code = BUN/CREAT) 17 08-05 [facility] VilhuruKgkeuwyiu4605-94-78 20:45:004.2[facility]annChemistry 2013-01-23 20:45:009.3[facility] XlswzzdWlxzwbqxt1569-76-18 20:45:0031[facility] GvhwuqgQsahxeyhp3847-46-49 20:45:0020[facility] EbyeljwAcvazggpb8793-35-36 20:45:21368Opspofcq OtwutudTheuauhzq4261-53-44 20:45:001.390[facility] Gqexqeomt5777-78-61 20:45:001.33[facility] PujuetwLdegtpttk6707-41-53 20:45:90499 [facility] XyshmzyZzpajhahk7596-40-75 20:45:54548Pgmzfzys [facility]annChemistry 2013-01-23 20:45:0023[facility] DyvbfwnKjkmauvgg0273-62-98 20:45:29091Pyipopgw XbhlphbXstaucnsb3793-04-88 20:45:71792Cvnscmae TzydwhrRxrkinzuy2882-47-64 20:45:0023[facility] PiuvitjConpvriqg7702-59-14 20:45:00See Note mg/dLMemorial NsejrasGjwvxxwjg9998-13-05 20:45:21174 MEQ/LMemorial IfbvgihRmxbyseme9050-53-43 20:45:004.5 MEQ/LMemorial QsvldizTikieotgv3852-26-71 20:45:001.8[facility] [place] Blmraatpe8258-04-78 20:45:0030[facility] ObshrzbJnhirfitw2371-52-47 20:45:00 Test Item Value Reference Range Interpretation Comments BUN/CREAT (test code = BUN/CREAT) 17 08-05 [facility] RyzaeaiBzcjmtebj5528-87-28 20:45:004.2[facility] HermannChemistry 2013-01-23 20:45:009.3[facility] VeljrtbVyyvtlbcn2388-90-12 20:45:0031[facility] IdyxeusZfknclzkx0355-93-96 20:45:0020[facility] EkukuoyJlxopivrk2173-15-88 20:45:70976Wdthnubo ChwsmihNnydduikd2045-51-18 20:45:001.390[facility] Fcdbayhld0110-58-07 20:45:001.33[facility] HisdlxtKjrgeaqeg4607-30-47 15:12:571.57 [facility] LlztqqwBzdqytwfb4307-98-61 15:12:571.57[facility] HermannChemistry 2012-04-02 15:12:571.57[facility] HerveraVaelrnlfy0391-00-06 15:12:571.57[facility]"
--- NOTE | 2021-02-09 19:55 | RAD REPORT ---
EXAM DESCRIPTION: CT - Head Brain Wo Cont - 02/09/2021 7:47 pm CLINICAL HISTORY: syncope COMPARISON: December 2020 TECHNIQUE: Computed axial tomography of the head was obtained. IV contrast was not requested. All CT scans are performed using dose optimization technique as appropriate and may include automated exposure control or mA/KV adjustment according to patient size. FINDINGS: An intracranial bleed is not seen . The ventricles are normal in caliber. No extra-axial fluid collection is noted. Mild to moderate low-density areas within periventricular, deep and subcortical white matter likely r epresent ischemic changes secondary to small vessel disease. Fluid within the sinuses/ mastoids is not seen. IMPRESSION: No acute intracranial abnormality is seen. If patient's symptoms persist MRI of the bra in would be recommended.
--- NOTE | 2021-02-09 20:04 | RAD REPORT ---
EXAM DESCRIPTION: Luan Single View02/09/2021 7:57 pm CLINICAL HISTORY: congestion COMPARISON: December 2020 FINDINGS: The lungs appear clear of acute infiltrate. The heart is moderately enlarged IMPRESSION: No acute abnormalities displayed
[2021-02-09 20:42] LABS: Absolute Lymphocytes (CBC) 0.8 K/uL (0.7-4.9); Hematocrit 36.3 % (39.6-49.0); Lymphocytes % 8.2 % (15.3-44.8); RBC Red Blood Cell Count 4.07 M/uL (4.33-5.43)
[2021-02-09 20:46] LABS: Protime INR 0.93
[2021-02-09 21:08] LABS: ALT/SGPT 28 U/L (12-78); AST/SGOT 19 U/L (15-37); Albumin 3.6 g/dL (3.4-5.0); Alkaline Phosphatase 123 U/L (45-117); BUN Blood Urea Nitrogen 62 mg/dL (7-18); Bicarbonate 25 mmol/L (21-32); Bilirubin Direct < 0.1 mg/dL (0-0.2); Bilirubin Total 0.4 mg/dL (0.2-1.0); Glucose Level 87 mg/dL (74-106); Magnesium 2.6 mg/dL (1.8-2.4); NT PRO-BNP 5665 pg/mL (<450); Potassium 4.9 mmol/L (3.5-5.1); Protein, Total 7.4 g/dL (6.4-8.2); Sodium Level 136 mmol/L (136-145); Troponin (Emerg Dept Use Only) < 0.02 ng/mL (0.0-0.045)
[2021-02-09 21:19] LABS: Urine Blood Negative (Negative); Urine Glucose Negative (Negative); Urine Protein 2+ (Negative)
[2021-02-09 21:23] LABS: SARS-COV-2 RT PCR NEGATIVE (NEGATIVE)
[2021-02-09 21:49] LABS: Barbiturates NEGATIVE (NEGATIVE); Benzodiazepines NEGATIVE (NEGATIVE); Cocaine NEGATIVE (NEGATIVE); METHAMPHETAM NEGATIVE (NEGATIVE); Methadone NEGATIVE (NEGATIVE); Opiates NEGATIVE (NEGATIVE); Phencyclidine NEGATIVE (NEGATIVE); THC Cannibis POSITIVE (NEGATIVE)
--- NOTE | 2021-02-09 22:11 | ER ---
Nurse's Notes [facility] Name: Amando Grossman Age: 75 yrs Sex: Male : 1945 Arrival Date: 02/09/2021 Time: 19:27 Bed 20 Private MD: Diagnosis: Cannabis abuse;Unspecified adverse effect of drug or medicament-Zolpidem Presentation: 02/09 19:31 Chief complaint: EMS states: PT WAS PULLED OVER BY [facility] FOR ERRATIC DRIVING. kd3 ACCORDING TO EMS, PT IS NOT UNDER THE INFLUENCE OF ALCOHOL BUT IS ANSWERING QUESTIONS INAPPROPRIATELY AND SEEMS CONFUSED. PT REPORTS TAKING AMBI AN WHILE DRIVING BUT DENIES ANY OTHER DRUG USE. Coronavirus screen: Vaccine status: Patient reports receiving the 2nd dose of the covid vaccine. Ebola Screen: No symptoms or risks identified at this time. 19:31 Method Of Arrival: EMS: [facility] kd3 19:35 Initial Sepsis Screen: Does the patient meet any 2 criteria? No. Patient's initial kd3 sepsis screen is negative. Does the patient have a suspected source of infection? No. Patient's initial sepsis screen is negative. Risk Assessment: Do you want to hurt yourself or someone else? Patient reports no desire to harm self or others. Onset of symptoms was February 09, 2021. 19:35 Acuity: KELLY 3 kd3 19:35 Acuity: KELLY 4 kd3 19:35 Acuity: KELLY 2 bb Triage Assessment: 19:38 General: Appears in no apparent distress. Behavior is calm, cooperative. Pain: Denies kd3 pain. Historical: - Allergies: 19:38 "statins"; kd3 19:38 PENICILLINS; kd3 19:38 Iodine; topical is ok; kd3 19:38 Shellfish Containing Products; kd3 - Home Meds: 19:38 metoprolol tartrate 50 mg Oral tab 1 tab 2 times per day [Active]; zolpidem 10 mg Oral kd3 tab 1 tab nightly [Active]; aspirin 81 mg Oral chew 1 tab once daily [Active]; Celebrex 100 mg Oral cap 1 cap once daily [Active]; clopidogrel 75 mg Oral tab 1 tab once daily [Active]; fluticasone inhalation [Active]; pantoprazole 40 mg Oral TbEC 1 tab once daily [Active]; Sular 34 mg Oral Tb24 1 tab once daily [Active]; tamsulosin 0.4 mg Oral cp24 1 cap once daily [Active]; WelChol 3.75 gram Oral pwpk 1 packet twice a day [Active]; - PMHx: 19:38 Anxiety; cholesterol; Depression; 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 - Social history:: Smoking status: Patient denies any tobacco usage or history of. Screenin:42 Abuse screen: Denies threats or abuse. Denies injuries from another. Nutritional kd3 screening: No deficits noted. Tuberculosis screening: No symptoms or risk factors identified. Fall Risk Mental Status- Oriented to own ability (0 pts). Assessment: 19:43 Reassessment: PT APPEARS TO BE IN NO DISTRESS. SOMETIMES ANSWERS QUESTIONS kd3 INAPPROPRIATELY. DENIES PAIN. NO SLURRED SPEECH. FACIAL SYMMETRY INTACT. PT BEING TAKEN TO CT AT THIS TIME. Vital Signs: 19:35 BP 163 / 67; Pulse 57; Resp 17; Temp 98.1(O); Pulse Ox 98% on R/A; Weight 83.91 kg; kd3 Height 5 ft. 8 in. (172.72 cm); Pain 0/10; 21:23 BP 159 / 68; Pulse 58; Resp 16; Pulse Ox 100% on R/A; Pain 0/10; kd3 22:27 BP 147 / 67; Pulse 62; Resp 17; Pulse Ox 98% on R/A; kd3 19:35 Body Mass Index 28.13 (83.91 kg, 172.72 cm) kd3 ED Course: 19:27 Patient arrived in ED. jg9 19:28 Hubert Enamorado MD is Attending Physician. mh7 19:31 Opal Graves, ADRIEN is Primary Nurse. kd3 19:38 Triage completed. kd3 19:38 Arm band placed on right wrist. kd3 19:42 Patient has correct armband on for positive identification. Placed in gown. Side rails kd3 up X2. patient monitor on. Pulse ox on. NIBP on. 19:47 CT Head Brain wo Cont In Process Unspecified. EDMS 19:57 XRAY Chest (1 view) In Process Unspecified. EDMS 20:23 Initial lab(s) drawn, by me, sent to lab. COVID swab sent to lab. Inserted saline lock: lt3 22 gauge in right antecubital area, using aseptic technique. 20:24 COVID-19/FLU A+B (Document "Date of Onset" if Symptomatic) Sent. lt3 22:27 No provider procedures requiring assistance completed. IV discontinued, intact, kd3 bleeding controlled, No redness/swelling at site. Pressure dressing applied. Administered Medications: No medications were administered Outcome: 22:10 Discharge ordered by . [facility] 22:27 Discharged to home via wheelchair. kd3 22:27 Condition: stable 22:27 Discharge instructions given to patient, Instructed on discharge instructions, follow up and referral plans. Demonstrated understanding of instructions, follow-up care. 22:40 Patient left the ED. kd3 Signatures: Dispatcher [employer] Britta Jones, RN RN Hubert Franco MD MD 7 Opal Graves RN RN 3 Jenna Romero 3 Lisbeth Romo jg9 Corrections: (The following items were deleted from the chart) 19:41 19:38 PMHx: Hypertension; kd3 kd3 20:07 19:35 Acuity: KELLY 3 kd3 bb
--- NOTE | 2021-02-09 22:11 | EDPHYS ---
Physician Documentation [facility] Name: Amando Grossman Age: 75 yrs Sex: Male : 1945 Arrival Date: 02/09/2021 Time: 19:27 Bed 20 Private MD: ED Physician Hubert Enamorado HPI: 02/09 19:50 This 75 yrs old Male presents to ER via EMS with complaints of Altered mental status. mh7 19:50 The patient presents with confusion, decreased mental status. Onset: The 7 symptoms/episode began/occurred today, at an unknown time. Possible causes: drug use, benzodiazepines. Associated signs and symptoms: Pertinent negatives: abdominal pain, agitation, ataxia, blurred vision, chest pain, combativeness, diaphoresis, diarrhea, dizziness, headache, lightheadedness, nausea, numbness, palpitations, seizure, shortness of breath, tingling, vertigo, vomiting, weakness. Current symptoms: In the emergency department the patient's symptoms have improved, markedly, is less confused. Patient's baseline: Neuro: alert and fully oriented, Motor: no deficits, Ambulation: walks with assist only, Right lower extremity amputation, Speech: normal. Patient was pulled over by police due to erratic driving and appeared to be altered. He admits to taking Ambien prior to driving today. He denies any complaints including headache, chest pain, abdominal pain, fever, cough, shortness of breath, nausea, vomiting, diarrhea, dizziness, numbness/tingling, or weakness.. Historical: - Allergies: 19:38 "statins"; kd3 19:38 PENICILLINS; kd3 19:38 Iodine; topical is ok; kd3 19:38 Shellfish Containing Products; kd3 - Home Meds: 19:38 metoprolol tartrate 50 mg Oral tab 1 tab 2 times per day [Active]; zolpidem 10 mg Oral kd3 tab 1 tab nightly [Active]; aspirin 81 mg Oral chew 1 tab once daily [Active]; Celebrex 100 mg Oral cap 1 cap once daily [Active]; clopidogrel 75 mg Oral tab 1 tab once daily [Active]; fluticasone inhalation [Active]; pantoprazole 40 mg Oral TbEC 1 tab once daily [Active]; Sular 34 mg Oral Tb24 1 tab once daily [Active]; tamsulosin 0.4 mg Oral cp24 1 cap once daily [Active]; WelChol 3.75 gram Oral pwpk 1 packet twice a day [Active]; - PMHx: 19:38 Anxiety; cholesterol; Depression; 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 - Social history:: Smoking status: Patient denies any tobacco usage or history of. ROS: 19:50 Constitutional: Negative for fever, chills, and weight loss, Eyes: Negative for injury, mh7 pain, redness, and discharge, ENT: Negative for injury, pain, and discharge, Neck: Negative for injury, pain, and swelling, Cardiovascular: Negative for chest pain, palpitations, and edema, Respiratory: Negative for shortness of breath, cough, wheezing, and pleuritic chest pain, Abdomen/GI: Negative for abdominal pain, nausea, vomiting, diarrhea, and constipation, Back: Negative for injury and pain, : Negative for injury, bleeding, discharge, and swelling, MS/Extremity: Negative for injury and deformity, Skin: Negative for injury, rash, and discoloration, Psych: Negative for depression, anxiety, suicide ideation, homicidal ideation, and hallucinations, Allergy/Immunology: Negative for hives, rash, and allergies, Endocrine: Negative for neck swelling, polydipsia, polyuria, polyphagia, and marked weight changes, Hematologic/Lymphatic: Negative for swollen nodes, abnormal bleeding, and unusual bruising. Exam: 19:50 Constitutional: This is a well developed, well nourished patient who is awake, alert, mh7 and in no acute distress. Head/Face: Normocephalic, atraumatic. Eyes: Pupils equal round and reactive to light, extra-ocular motions intact. Lids and lashes normal. Conjunctiva and sclera are non-icteric and not injected. Cornea within normal limits. Periorbital areas with no swelling, redness, or edema. Neck: Trachea midline, no thyromegaly or masses palpated, and no cervical lymphadenopathy. Supple, full range of motion without nuchal rigidity, or vertebral point tenderness. No Meningismus. Chest/axilla: Normal chest wall appearance and motion. Nontender with no deformity. No lesions are appreciated. Respiratory: Lungs have equal breath sounds bilaterally, clear to auscultation and percussion. No rales, rhonchi or wheezes noted. No increased work of breathing, no retractions or nasal flaring. Abdomen/GI: Soft, non-tender, with normal bowel sounds. No distension or tympany. No guarding or rebound. No evidence of tenderness throughout. Back: No spinal tenderness. No costovertebral tenderness. Full range of motion. Skin: Warm, dry with normal turgor. Normal color with no rashes, no lesions, and no evidence of cellulitis. 19:50 Musculoskeletal/extremity: Extremities: noted in the Right lower extremity amputation, chronic: 19:50 Cardiovascular: Regular rate and rhythm with a normal S1 and S2. No gallops, murmurs, mh7 or rubs. Normal PMI, no JVD. No pulse deficits. 19:50 Psych: Awake, alert, with orientation to person, place and time. Behavior, mood, and mh7 affect are within normal limits. 19:50 Neuro: Orientation: is normal, Mentation: is normal, Memory: appropriate for stated age, Cranial nerves: grossly normal, Cerebellar function: is grossly normal, Motor: is normal, Sensation: is normal, Gait: not tested. seizure activity, is not displayed by the patient, Abnormal movements: there are no abnormal movements. Vital Signs: 19:35 BP 163 / 67; Pulse 57; Resp 17; Temp 98.1(O); Pulse Ox 98% on R/A; Weight 83.91 kg; kd3 Height 5 ft. 8 in. (172.72 cm); Pain 0/10; 21:23 BP 159 / 68; Pulse 58; Resp 16; Pulse Ox 100% on R/A; Pain 0/10; kd3 22:27 BP 147 / 67; Pulse 62; Resp 17; Pulse Ox 98% on R/A; kd3 19:35 Body Mass Index 28.13 (83.91 kg, 172.72 cm) kd3 MDM: 22:03 Differential Diagnosis: CVA, electrolyte abnormality, alcohol intoxication, [facility] hypoglycemia, intracranial bleed, overdose, pneumonia, seizure, TIA, UTI, volume depletion. Data reviewed: vital signs, nurses notes, EMS record, old medical records, lab test result(s), cardiac enzymes, CBC, drug level(s), acetaminophen, alcohol, salicylate, electrolytes, urinalysis, urine drug screen, EKG, radiologic studies, CT scan, plain films. Data interpreted: Pulse oximetry: on room air is 100 %. Interpretation: normal. Counseling: I had a detailed discussion with the patient and/or guardian regarding: the historical points, exam findings, and any diagnostic results supporting the discharge/admit diagnosis, the presence of at least one elevated blood pressure reading (>120/80) during this emergency department visit, lab results, radiology results, the need for outpatient follow up, to return to the emergency department if symptoms worsen or persist or if there are any questions or concerns that arise at home. Response to treatment: the patient's symptoms have resolved after treatment, the patient's blood pressure is in an acceptable range, mental status has returned to baseline, the patient no longer shows bradycardia, the patient is not short of breath, the patient is not tachycardic, the patient's pain is gone, the patient's temperature has normalized. ED course: Well-appearing, no acute distress, vital signs stable, no focal neurological deficits. Awake, alert, and oriented x4 and answering questions appropriately. Discussed all test results and findings with the patient and answered all his questions. He request to be discharged from the ED at this time.. 22:10 Patient medically screened. [facility] 02/09 19:33 Order name: Basic Metabolic Panel; Complete Time: 21:28 [facility] 02/09 19:33 Order name: CBC with Diff; Complete Time: 20:50 [facility] 02/09 19:33 Order name: LFT's; Complete Time: 21:28 [facility] 02/09 19:33 Order name: Magnesium; Complete Time: 21:28 [facility] 02/09 19:33 Order name: NT PRO-BNP; Complete Time: 21:28 [facility] 02/09 19:33 Order name: PT-INR; Complete Time: 20:50 [facility] 02/09 19:33 Order name: Troponin (emerg Dept Use Only); Complete Time: 21:28 [facility] 02/09 19:33 Order name: UDS; Complete Time: 21:56 [facility] 02/09 19:41 Order name: Acetaminophen [facility] 02/09 19:41 Order name: Salicylate [facility] 02/09 19:41 Order name: AMMONIA [facility] 02/09 19:41 Order name: ETOH Level [facility] 02/09 19:42 Order name: Acetaminophen Level; Complete Time: 21:28 EDMS 02/09 19:42 Order name: Salicylates Level; Complete Time: 21:28 EDIN 02/09 19:33 Order name: XRAY Chest (1 view); Complete Time: 20:08 [facility] 02/09 19:33 Order name: EKG; Complete Time: 19:34 [facility] 02/09 19:33 Order name: Cardiac monitoring; Complete Time: 20:00 [facility] 02/09 19:33 Order name: EKG - Nurse/Tech; Complete Time: 20:47 [facility] 02/09 19:33 Order name: IV Saline Lock; Complete Time: 20:24 [facility] 02/09 19:33 Order name: Labs collected and sent; Complete Time: 20:24 [facility] 02/09 19:33 Order name: O2 Per Protocol; Complete Time: 20:00 [facility] 02/09 19:33 Order name: O2 Sat Monitoring; Complete Time: 20:00 [facility] 02/09 19:33 Order name: Urine Dipstick-Ancillary (obtain specimen); Complete Time: 21:20 [facility] 02/09 19:33 Order name: CT Head Brain wo Cont; Complete Time: 20:08 [facility] 02/09 19:42 Order name: Ammonia; Complete Time: 21:46 [facility] 02/09 19:42 Order name: Alcohol Serum/Plasma; Complete Time: 21:28 [facility] 02/09 19:42 Order name: COVID-19/FLU A+B (Document "Date of Onset" if Symptomatic); Complete Time: [facility] 21:28 02/09 21:19 Order name: Urine Dipstick-Ancillary; Complete Time: 21:28 EDMS Administered Medications: No medications were administered Disposition Summary: 02/09/21 22:10 Discharge Ordered Location: Home [facility] Problem: new mh7 Symptoms: have improved 7 Condition: Stable mh7 Diagnosis - Cannabis abuse mh7 - Unspecified adverse effect of drug or medicament - Zolpidem 7 Followup: mh7 - With: Private Physician - When: 1 - 2 days - Reason: Worsening of condition, Recheck today's complaints, Continuance of care, Re-evaluation by your physician Discharge Instructions: - Discharge Summary Sheet [facility] - Cannabis Use Disorder [facility] - Using Medicines Safely [facility] Forms: - Medication Reconciliation Form [facility] - Thank You Letter [facility] - Antibiotic Education [facility] - Prescription Opioid Use [facility] Signatures: Dispatcher [employer] EDHubert Nino MD MD [facility] Opal Graves RN RN kd3 Corrections: (The following items were deleted from the chart) 19:41 19:38 PMHx: Hypertension; kd3 kd3
[2021-02-09 22:47] VITALS: TEMP 98.1
[2021-02-09 22:50] VITALS: BP 147/67; O2SAT 98
== END 2021-02-09 22:40 | disposition home or self-care (01) ==
LOC: ER 19:10
DX: T42.6X5A Adverse effect of other antiepileptic and sedative-hypnotic drugs, initial encounter (principal); Y92.9 Unspecified place or not applicable; F12.10 Cannabis abuse, uncomplicated; Z88.0 Allergy status to penicillin; Z91.09 Other allergy status, other than to drugs and biological substances; Z91.013 Allergy to seafood; Z20.822 Contact with and (suspected) exposure to COVID-19
CPT/HCPCS: 93005 ×2; 85025; 80048; 36415; 80320; 82140; 83735; 80329 ×2; 85610; 80076; 81003; 84484; 83880; 0240U; 80307; 70450; 71045; 99284

== ENCOUNTER 2021-02-20 15:18 | Emergency (ER) | payer OTHER, BC ==
--- OUTSIDE RECORDS SUMMARY | 2021-02-20 15:25 | XMS REPORT | Continuity of Care Document ---
:1945 Author Organization [facility] t Address 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 [facility] t[facility] knee knee 03-24 College replacemen replacemen 00:00: of t, t, 00 Medicin bilateral bilateral e Anemia, Anemia, Disease Active 2017-02 Methodi unspecifie unspecifie 02-23 st d d 00:00: Hospita 00 l Chronic Chronic Disease Active [facility] renal renal 6 [place] disease, disease, 00:00: of stage 4, stage 4, 00 Medici n severely severely e decreased decreased glomerular glomerular filtration filtration rate (GFR) rate (GFR) between between 15-29 15-29 mL/min/1.7 mL/min/1.7 3 square 3 square meter meter (HCCode) (HCCode) Atheroscle Atheroscle Disease Active Overview : [facility] rosis of rosis of [employer] [place] 00:00: standing of coronary coronary 00 disease, Medi sky artery of artery of stable e [place] with heart heart current without without RxLast angina angina Assessmen pectoris pectoris t & Plan: Continue current Rx and control all risk factors including weight Essential Essential Disease Active Overview: [facility] hypertensi hypertensi 8- Stable Co llege on [...] Hospital angioplast angioplast 8- In 2009 C ollege [...] results pending Arthritis Arthritis Disease Active Overview: [facility] of knee, of knee, 09-23 He has Colleg e right right 00:00: severe of 00 arthritis Medicin with e joint replaceme nt and now has infection for which he is using halfway infection Antibioti c [facility] & Plan: Continue current Rx [...] PROSTATE - 10:35:00 l W/UR OBST 00:00: [place] & OTH LUTS HYPERTROPH 00 Y PROSTATE W/UR OBST & OTH LUTS Active 01/23/2013 Condition 5 [facility] DYSLIPIDEM Condition Active 2014-02-18 Memoria IA 10:35:00 l [place] DYSLIPIDEM IA Active Condition 02/18/2014 Medical Group GERD Condition Active 2014-02-18 Mem oria 10:35:00 l GERD [place] Active Condition 02/18/2014 Medical Group ASCVD Condition Active 2014-02-18 Mem oria 10:35:00 l ASCVD [place] Active Condition 02/18/2014 [facility] Group CAD Condition Active 2014-02-18 Mem oria 10:35:00 l CAD Jimmy Active Condition 02/18/2014 Medical Group CHRONIC Condition Active 2014-02-18 Me moria KIDNEY 10:35:00 l DISEASE CHRONIC [place] n STAGE III KIDNEY (MODERATE) DISEASE STAGE III (MODERATE) Active Condition 02/18/2014 Medical Group HYPERTENSI Condition Active 2014-02-18 Memoria ON 10:35:00 l [place] HYPERTENSI ON Active Condition 02/18/2014 [facility] Group Allergies, Adverse Reactions, Alerts Allergy Allergy Status Severity Reaction(s) Onset Inactive Treating Comm ents Source Name Type Date Date Clinician No Known DA Active U 2020-0 [facility] [place] [facility] 00:[facility]: d 00 [facility] No Known DA Active U 2020-0 [facility] Allergie -02 [place] s 00:00: d 00 [facility] Iodine FA Active AR DIARRHEA 2020-0 [facility] and 05-13 [place] Iodide 00:00: d Containi 00 [facility] Produc shellfis FA Active SV SWELLING 2020-0 [facility] h - [place] derived 00:00: d 00 [facility] Iodine FA Active AR 2020-0 [facility] and 05-13 Clear Iodide 00:00: Smith Containi 00 [facility] shellfis FA Active SV 2020-0 [facility] h 05-13 Clear derived 00:00: Smith 00 [facility] PINICILL DA Active AR ITCHING 2020-0 [facility] IN - Clear 00:00: Smith 00 [facility] Iodine Propensi Active Rash 2020-0 Univers ty to 9-30 ity of adverse 00:00: [place] reaction 00 [facility] Penicill Propensi Active Anaphylaxis 2020-0 U nivers ins ty to 9-30 ity of adverse 00:00: [place] reaction 00 [facility] IODINE DRUG Active Rash 2020-0 Univers INGREDI 9-30 ity of 00:00: [place] 00 [facility] PENICILL Drug Active Anaphylaxis 2019-0 Uni vers INS Class 9-30 ity of 00:00: [place] [facility] SHELLFIS DRUG Active Diarrhea 2019-0 Univer s H INGREDI - ity of DERIVED 00:00: [facility] Shellfis Propensi Active Nausea 2019-0 Univer s h ty to and/or 11-10 ity of Derived adverse Vomiting 00:00: [place] reaction 00 Medical s Branch Penicill Propensi Active 2017-02 [facility] ins ty to 2-10 College adverse 00:00: of reaction 00 Medicin s to e drug Fish-Polo Propensi Active Moderate Bayl or ived ty to 8-13 [place] Products adverse 00:00: of reaction 00 Medicin [...] reaction 00 Center s Atorvast Propensi Active [facility] to 2-24 [facility] - adverse 00:00: Medical reaction 00 Center s Atorvast Propensi Active Armond atin ty to 2-24 College adverse 00:00: of reaction 00 Medicin s to e drug Penicill Propensi Active Hives, unknown [facility] [...] Stop Date Source Natural father Heart disease [facility] Natural mother COPD [facility] Social History Social Habit Start Date Stop Date Quantity Comments Source Sex Assigned At [facility] llege of Medicine Exposure to Unable to assess Univers ity of SARS-CoV-2 [facility] (event) Branch Tobacco use and 2019-11-19 2019-11-19 Never used [facility] llege of exposure 00:00:00 00:00:00 Medicine Alcohol intake 2019-11-19 2019-11-19 Current [facility] lege of 00:00:00 00:00:00 non-drinker of Medicine alcohol (finding) Smoking Status Start Date Stop Date Source Never smoker [facility] o f Medicine Unknown if ever smoked [facility] Medical [place] Medications Ordered Filled Start Stop Current Ordering [...] (two) Hospita 31 times a l day. Milo twice daily diphenhydrA Yes 25mg Take 25 [...] zolpidem 2019-02 Yes 10mg Take 10 mg [facility] taylor (AMBIEN) 5 0-08 by mouth Colle [...] qd Bayl or 500 MG CPCR 011-18 [place] 16:03: 00:00 of 53 :00 Medicin e Colesevelam Yes TAKE Evans taylor HCl 3.75 g 11-03 DIRECTED Colle [...] mg per tablet metoprolol Yes TAKE ONE Evans taylor (LOPRESSOR) 1-24 TABLET BY Col lege [...] 100 mg 2-15 [facility] - Chew 17:11: [address] niacin 500 2016-02 Yes [address] [facility] MG CR 2-15 [facility] - capsule 17:11: [address] zolpidem 2016-02 Yes 10mg Take [address] (AMBIEN) 10 2-15 by mouth Luke s - mg tablet 17:10: every Medical 17 night as Center needed for Insomnia. DULoxetine 2016-02 Yes 60mg QD Take [address] (CYMBALTA) 2-15 by mouth [facility] - 60 MG 17:10: daily. Medical capsule [address] [place] NIFEdipine 2016-02 Yes 60mg QD Take 60 [...] MG 24 hr 00:00: Medical tablet 00 [place] metoprolol 2021- No 25mg QD Take 25 mg Methodi tartrate 5-12 -[address] (LOPRESSOR) 00:00: 00:00 daily. Hos imelda 50 MG 00 :00 l tablet CLOPIDOGREL Yes TAKE 1 Andres dora BISULFATE 1-08 TABLET BY l 75 MG TABS 10:35: MOUTH [place] n 00 DAILY NISOLDIPINE Yes TAKE 1 Andres dora ER 34 MG 1-08 TABLET BY l [id number] 10:35: MOUTH Jimmy 00 DAILY LOSARTAN Yes TAKE 1 Memoria POTASSIUM 1-08 TABLET BY l 100 MG TABS 10:35: MOUTH Mayr nn 00 DAILY CYMBALTA 60 Yes TAKE 1 Andres dora MG CPEP 1-08 TABLET BY l 10:35: MOUTH Jimmy 00 DAILY PANTOPRAZOL Yes TAKE 1 Andres dora E SODIUM 40 1-08 TABLET BY l MG TBEC 10:35: MOUTH [place] 00 DAILY CLOPIDOGREL Yes TAKE 1 Andres dora BISULFATE 1-08 TABLET BY l 75 MG TABS 10:35: MOUTH [place] n 00 DAILY NISOLDIPINE Yes TAKE 1 Andres dora ER 34 MG 1-08 TABLET BY l [id number] 10:35: MOUTH [place] 00 DAILY LOSARTAN Yes TAKE 1 Memoria POTASSIUM 1-08 TABLET BY l 100 MG TABS 10:35: MOUTH Mary nn 00 DAILY CYMBALTA 60 Yes TAKE 1 Andres dora MG CPEP 1-08 TABLET BY l 10:35: MOUTH [place] 00 DAILY PANTOPRAZOL Yes TAKE 1 Andres [...] TABLET BY l MG TABS 14:45: MOUTH [place] DAILY LOSARTAN 2012-02 Yes TAKE 1 Memoria [...] TABLET BY l MG TABS 14:45: MOUTH [place] DAILY LOSARTAN 2012-02 Yes TAKE 1 Memoria POTASSIUM 2-13 TABLET BY l 100 MG TABS 14:45: MOUTH Mary nn DAILY WELCHOL 2012-02 Yes TAKE 1 Memoria 3.75 GM 2-13 TABLET BY l PACK 14:45: MOUTH Jimmy 00 DAILY CYMBALTA 60 2012-02 Yes TAKE 1 Andres dora MG CPEP 2-13 TABLET BY l 14:45: MOUTH [place] DAILY PANTOPRAZOL 2012-02 Yes TAKE 1 Andres dora E SODIUM 40 2-13 TABLET BY l MG TBEC 14:45: MOUTH Jimmy 00 DAILY PLAVIX 75 2012-02 No TAKE 1 Memori a MG TABS 2-13 TABLET BY l 00:00: MOUTH Jimmy 00 DAILY OCUVITE EYE 2012-02 Yes Memori a + MULTI 2-13 l TABS 00:00: [place] 00 COQ10 CAPS 2012-02 Yes Memoria 2-13 l 00:00: Jimmy 00 ASPIRIN 81 2012-02 Yes Memoria MG TABS 2-13 l 00:00: Jimmy 00 FLOMAX 0.4 2012-02 Yes one every Me moria MG CAPS 2-13 evening. l 00:00: [place] 00 LUNESTA 3 2012-02 Yes TAKE 1 Memori a MG TABS 2-13 TABLET BY l 00:00: MOUTH Jimmy DAILY LUNESTA 3 2012-02 Yes TAKE 1 Memori a MG TABS 2-13 TABLET BY l 00:00: MOUTH [place] DAILY FLOMAX 0.4 2012-02 No one every Me moria MG CAPS 2-13 evening. l 00:00: Jimmy 00 PLAVIX 75 2012-02 No TAKE 1 Memori a MG TABS 2-13 TABLET BY l 00:00: MOUTH Jimmy 00 DAILY OCUVITE EYE 2012-02 Yes Memori a + MULTI 2-13 l TABS 00:00: Jimmy 00 COQ10 CAPS 2012-02 Yes Memoria 2-13 l 00:00: [place] 00 ASPIRIN 81 2012-02 Yes Memoria MG TABS 2-13 l 00:00: Jimmy 00 FLOMAX 0.4 2012-02 Yes one every Me moria MG CAPS 2-13 evening. l 00:00: [place] 00 LUNESTA 3 2012-02 Yes TAKE 1 Memori a MG TABS 2-13 TABLET BY l 00:00: MOUTH [place] DAILY LUNESTA 3 2012-02 Yes TAKE 1 [...] influenza 2010-10-16 Completed [facility] immunization (Flu 14:23:57 [place] Vax) has been administered pneumococcal 2007-06-14 Completed [facility] immunization 14:23:57 [place] administered pneumococcal 2007-06-14 Completed [facility] immunization 14:23:57 Jimmy administered hepatitis B vaccine 2006-04-11 Completed Memor ial #3 15:23:57 [place] hepatitis B vaccine 2006-04-11 Completed Memor ial #3 15:23:57 [place] chicken pox 2006-03-20 Completed [facility] immunization #1 15:23:57 [place] chicken pox 2006-03-20 Completed Memorial immunization #1 15:23:57 [place] hepatitis B vaccine 2006-03-15 Completed Memor ial #2 given 15:23:57 Jimmy hepatitis B vaccine 2006-03-15 Completed Memor ial #2 given 15:23:57 Jimmy MMR (measles, mumps, 2006-02-28 Completed Andres rial rubella) virus 15:23:57 Jimmy immunization #1 MMR (measles, mumps, 2006-02-28 Completed Andres rial rubella) virus 15:23:57 Jimmy immunization #1 hepatitis B vaccine 2006-02-25 Completed Memor ial #1 given 15:23:57 [place] hepatitis B vaccine 2006-02-25 Completed Memor ial #1 given 15:23:57 Jimmy Vital Signs Vital Name Observation Time Observation Value Comments Source Systolic blood 2019-11-19 15:57:00 146 mm[Hg] [facility] pressure Medicine Diastolic blood 2019-11-19 15:57:00 72 mm[Hg] [facility] pressure Medicine Heart rate 2019-11-19 15:57:00 91 /min [facility] C ollege of Medicine Body height 2019-11-19 15:57:00 172.7 cm [facility] C ollege of Medicine Body weight 2019-11-19 15:57:00 83.462 kg [facility] C ollege of Medicine BMI 2019-11-19 15:57:00 27.98 kg/m2 [facility] ollege of Medicine Systolic blood 2019-11-19 15:57:00 146 mm[Hg] [facility] Medicine Diastolic blood 2019-11-19 15:57:00 72 mm[Hg] [facility] Medicine Heart rate 2019-11-19 15:57:00 91 /min [facility] C ollege of Medicine Body height 2019-11-19 15:57:00 172.7 cm [facility] C ollege of Medicine Body weight 2019-11-19 15:57:00 83.462 kg [facility] ollege of Medicine BMI 2019-11-19 15:57:00 27.98 kg/m2 [facility] ollege of Medicine Systolic blood 2019-11-12 01:28:00 [...] 100 /min University of Arterial blood by [facility] Pulse oximetry Branch Systolic blood 2019-11-12 01:00:00 [...] 99 /min University of Arterial blood by [facility] Pulse oximetry Branch Body temperature 2019-11-11 22:21:00 36.61 Pat Univ ersity [facility] [place] [facility] Body weight 2019-11-11 22:21:00 85 kg Universi ty [facility] Systolic blood 2019-11-12 01:28:00 126 mm[Hg] Univer sity of pressure [facility] Diastolic blood 2019-11-12 01:28:00 63 mm[Hg] Unive rsity of [facility] Heart rate 2019-11-12 01:28:00 84 /min Universi ty [facility] Respiratory rate 2019-11-12 01:28:00 20 /min Univ ersity of [facility] Oxygen saturation in 2019-11-12 01:28:00 100 /min University of Arterial blood by [facility] Pulse oximetry Branch Systolic blood 2019-11-12 01:00:00 142 mm[Hg] Univer sity of [facility] Diastolic blood 2019-11-12 01:00:00 71 mm[Hg] Unive rsity of [facility] Heart rate 2019-11-12 01:00:00 84 /min Universi [facility] Respiratory rate 2019-11-12 01:00:00 14 /min [facility] in 2019-11-12 01:00:00 99 /min University of Arterial blood by [facility] Pulse oximetry Branch Body temperature 2019-11-11 22:21:00 36.61 Pat [facility] Body weight 2019-11-11 22:21:00 85 kg [facility] Body height 2020-04-27 20:44:00 172.7 cm [facility] Body weight 2020-04-27 20:44:00 84.369 kg [facility] BMI 2020-04-27 20:44:00 28.28 kg/m2 [facility] Systolic blood 2020-03-26 14:44:51 139 mm[Hg] Method ist [facility] pressure Diastolic blood 2020-03-26 14:44:51 66 mm[Hg] [facility] pressure Heart rate 2020-03-26 14:44:51 80 /min [facility] Body temperature 2020-03-26 14:44:51 36 Pat [facility] Res[facility] rate 2020-03-26 14:44:51 19 /min [facility] Oxygen saturation in 2020-03-26 14:44:51 96 /min [facility] Arterial blood by Pulse oximetry Height 2014-02-18 15:55:42 [facility] Jimmy Weight 2014-02-18 15:55:42 [facility] Jimmy Temperature Oral (F) 2014-02-18 15:55:42 97.5 F [facility] Jimmy Heart Rate 2014-02-18 15:55:42 [facility] Jimmy Systolic (mm Hg) 2014-02-18 15:55:42 Andres rial Jimmy Diastolic (mm Hg) 2014-02-18 15:55:42 Mem orial [place] Weight 2013-01-23 19:53:21 [facility] Jimmy Temperature Oral (F) 2013-01-23 19:53:21 97.6 F [facility] Jimmy Heart Rate 2013-01-23 19:53:21 [facility] Jimmy Height 2013-01-23 19:53:21 [facility] Jimmy Systolic (mm Hg) 2013-01-23 19:53:21 Andres rial Jimmy Diastolic (mm Hg) 2013-01-23 19:53:21 Mem orial [place] Procedures Procedure Date / Time Performing Clinician Source Performed [id number] 2020-05-24 00:00:00 GRANI [facility] [id number] 2020-05-20 00:00:00 GIBJE.01 [facility] [id number] 2020-05-20 00:00:00 GIBJE.01 [facility] [id number] 2020-05-20 00:00:00 GIBJE.01 [facility] [id number] 2020-05-20 00:00:00 SEEGE [facility] [id number] 2020-05-16 00:00:00 JUSTINO.03 [facility] [id number] 2020-05-14 00:00:00 JUSTINO.03 [facility] [id number] 2020-05-11 00:00:00 ENCPL [id number] 2020-05-11 00:00:00 ENCPL [id number] 2020-05-11 00:00:00 ENCPL [id number] 2020-03-30 00:00:00 ENCCY [id number] 2020-03-30 00:00:00 ENCCY [id number] 2020-03-30 00:00:00 ENCCY [id number] 2020-03-30 00:00:00 ENCCY [id number] 2020-03-30 00:00:00 JENNIFERCY [id number] 2020-03-30 00:00:00 JENNIFERCY [id number] 2020-03-30 00:00:00 JENNIFERCY [id number] 2020-03-30 00:00:00 JENNIFERCY [id number] 2020-03-30 00:00:00 JENNIFERCY [id number] 2020-03-30 00:00:00 JENNIFERCY [id number] 2020-03-30 00:00:00 JENNIFERCY [id number] 2020-03-30 00:00:00 JENNIFERCY [id number] 2020-03-30 00:00:00 JENNIFERCY [id number] 2020-03-30 00:00:00 JENNIFERCY [id number] 2020-03-30 00:00:00 JENNIFERCY [id number] 2020-03-30 00:00:00 JENNIFERCY [id number] 2020-03-30 00:00:00 JENNIFERCY [id number] 2020-03-30 00:00:00 JENNIFERCY [id number] 2020-03-30 00:00:00 JENNIFERCY [id number] 2020-03-30 00:00:00 JENNIFERCY [id number] 2020-03-30 00:00:00 MICHELLE HC COMPLETE BLD COUNT 2020-03-25 10:45[facility] Obi BASIC METABOLIC PANEL 2020-03-25 10:00[facility] ESTIMATED GFR 2020-03-25 10:00:00 Clint King Ho spital Obi HEMODIALYSIS 2020-03-24 22:39:54 Maldonado Casper [facility] HC COMPLETE BLD COUNT 2020-03-24 11:00[facility]FF Obi BASIC METABOLIC PANEL 2020-03-24 10:00:00 [facility] Obi ESTIMATED GFR 2020-03-24 10:00:00 Clint King Ho spital Obi US CAROTID DUPLEX 2020-03-23 18:31:05 [facility] BILATERAL BASIC METABOLIC PANEL 2020-03-23 09:20:00 [facility] Obi HC COMPLETE BLD COUNT 2020-03-23 09:20:00 [facility] W/AUTO DIFF Obi ESTIMATED GFR 2020-03-23 09:20:00 Clint King spital Obi POC GLUCOSE 2020-03-22 22:27:00 Clint King spital Obi HEMODIALYSIS 2020-03-22 22:13:20 Romy Woodson spital Tabitha ANAEROBIC CULTURE 2020-03-22 20:52:[facility] 2020-03-22 20:52:00 Usha Obipopeye Ferrer spital AFB STAIN 2020-03-22 20:52:00 Obi Kerr spital AEROBIC CULTURE 2020-03-22 20:52:00 Obi Kerr spital FUNGUS SMEAR 2020-03-22 20:52:00 Usha Obipopeye Ferrer spital ANAEROBIC CULTURE 2020-03-22 20:50:00 [facility] 2020-03-22 20:50:00 Usha Obipopeye Ferrer spital AFB STAIN 2020-03-22 20:50:00 Usha Obipopeye Ferrer spital AEROBIC CULTURE 2020-03-22 20:50:00 Usha Obipopeye Ferrer spital GRAM STAIN 2020-03-22 20:50:00 Obi Kerr spital SURGICAL PATHOLOGY 2020-03-22 20:30:00 [facility] REQUEST Obi AFB CULTURE 2020-03-22 19:52:00 Obi Kerr spital AFB CULTURE 2020-03-22 19:50:00 Obi Kerr spital OR FL < 1 HOUR 2020-03-22 19:30:00 Usha Obipopeye Valladares spital [place] AN ELECTIVE 2020-03-22 19:25:28 Simpson, Tejal Sing [facility] ENDOTRACHEAL AIRWAY AMPUTATION, ABOVE KNEE 2020-03-22 18:47:00 UshaObi [facility] POC GLUCOSE 2020-03-22 15:07:00 Clint Kingtal Obi HC COMPLETE BLD COUNT 2020-03-22 12:45:00 [facility] TYPE AND SCREEN 2020-03-22 12:45:00 Carlos Nelson spital VANCOMYCIN LEVEL, RANDOM 2020-03-22 10:00:00 [facility] BASIC METABOLIC PANEL 2020-03-22 10:00:00 Clint King [facility] Obi ESTIMATED GFR 2020-03-22 10:00:00 Clint King spital Obi LIPID PANEL 2020-03-22 10:00:00 Bear Marieetal HEPATITIS B SURFACE 2020-03-21 14:22:00 Kumar Ayala [facility] ANTIGEN PROTHROMBIN TIME WITH INR 2020-03-21 12:15:00 [facility] PARTIAL THROMBOPLASTIN 2020-03-21 12:15:00 [facility] TIME (PTT) BASIC METABOLIC PANEL 2020-03-21 12:15:00 [facility] CBC WITH PLATELET AND 2020-03-21 12:15:00 [facility] DIFFERENTIAL VANCOMYCIN LEVEL, RANDOM 2020-03-21 12:15:00 [facility] ESTIMATED GFR 2020-03-21 12:15:00 [facility] 2020-03-21 06:05:17 Kumar Ayala H ospital VANCOMYCIN LEVEL, RANDOM 2020-03-20 20:54:00 [facility] BASIC METABOLIC PANEL 2020-03-20 11:30:00 Clint King [facility] Obi ESTIMATED GFR 2020-03-20 11:30:00 Clint King spital Obi TTE COMPLETE, W CONTRAST, 2020-03-19 18:00:00 Juan Mickey noriega [facility] W DOPPLER ([id number]) HC COMPLETE BLD COUNT 2020-03-19 10:14:00 [facility] W/AUTO DIFF MRI KNEE WO CONTRAST 2020-03-19 09:38:00 [place] [facility] RIGHT MRI THIGH WO CONTRAST 2020-03-19 08:52:00 [place] [facility] RIGHT MRI LOWER EXTREMITY WO 2020-03-19 08:07:[address] [facility] CONTRAST RIGHT BASIC METABOLIC PANEL 2020-03-19 07:01:00 [facility] ESTIMATED GFR 2020-03-19 07:01:00 [facility] spital LACTIC ACID LEVEL 2020-03-19 07:01:00 [facility] LACTIC ACID LEVEL, SEPSIS 2020-03-19 01:46:00 [facility] - NOW AND REPEAT 2X EVERY [place] 3 HOURS BLOOD CULTURE, AEROBIC & 2020-03-18 23:22:00 [facility] ANAEROBIC [place] COVID-19 QUALITATIVE 2020-03-18 23:22:00 [facility] RT-PCR [place] BLOOD CULTURE, AEROBIC & 2020-03-18 23:16:00 [facility] ANAEROBIC [place] HC COMPLETE BLD COUNT 2020-03-18 23:16:00 [facility] W/AUTO DIFF [place] PROTHROMBIN TIME WITH INR 2020-03-18 23:16:00 [facility] [place] PARTIAL THROMBOPLASTIN 2020-03-18 23:16:00 [facility] TIME (PTT) [place] TYPE AND SCREEN 2020-03-18 23:16:00 [facility] spital [place] COMPREHENSIVE METABOLIC 2020-03-18 23:16:00 [facility] PANEL [place] LACTIC ACID LEVEL, SEPSIS 2020-03-18 23:16:00 [facility] - NOW AND REPEAT 2X EVERY [place] 3 HOURS C-REACTIVE PROTEIN 2020-03-18 23:16:00 [facility] [place] SEDIMENTATION RATE 2020-03-18 23:16:00 [facility] [place] ESTIMATED GFR 2020-03-18 23:16:00 [facility] spital [place] URINE CULTURE 2020-03-18 23:10:00 [facility] spital [place] URINALYSIS SCREEN AND 2020-03-18 23:10:00 [facility] MICROSCOPY, WITH REFLEX [place] TO CULTURE XR KNEE 1 OR 2 VW RIGHT 2020-03-18 23:03:39 [facility] [place] XR TIBIA FIBULA 2 VW 2020-03-18 23:03:04 [facility] RIGHT [place] URINALYSIS 2019-11-11 23:48:00 [facility] XR CHEST 1 VW 2019-11-11 23:02:37 [facility] MAGNESIUM 2019-11-11 22:43:00 [facility] COMP. METABOLIC PANEL 2019-11-11 22:43:00 Wanda Henson [facility] ([id number]) [facility] CBC WITH DIFF 2019-11-11 22:43:00 [facility] TROPONIN I 2019-11-11 22:43:00 [facility] EKG-12 LEAD 2019-11-11 22:40:13 [facility] Plan of Care Planned Activity Planned Date Details Comments Source Future Scheduled ELECTROCARDIOGRAM [facility] Test COMPLETE [code = 76522] of M edicine Future Scheduled COLON CANCER SCREENING: [facility] Test COLONOSCOPY [code = of Medic ine COLON CANCER SCREENING: COLONOSCOPY] Future Scheduled TETANUS SHOT (ADULT) [facility] College Test [code = TETANUS SHOT of Medi cine (ADULT)] Future Scheduled BMI FOLLOW UP PLAN [code [facility] Test = BMI FOLLOW UP PLAN] of Med icine Future Scheduled HEPATITIS C SCREENING [employer] [facility] [code = HEPATITIS C of Medic ine SCREENING] Future Scheduled ZOSTER VACCINE (1 of 2) [facility] Test [code = ZOSTER VACCINE of Me dicine (1 of 2)] Future Scheduled FALL SCREEN [code = FALL [facility] Test SCREEN] of Medicine Future Scheduled PNEUMOVAX >=65 (PPSV23) [facility] Test [code = PNEUMOVAX >=65 of Me dicine (PPSV23)] Future Scheduled MEDICARE AWV (Initial) [facility] Test [code = MEDICARE AWV of Medi cine (Initial)] Future Scheduled FLU VACCINE > 6 MONTHS [facility] Test [code = FLU VACCINE > 6 of M edicine MONTHS] Future Scheduled 65+ PNEUMOCOCCAL VACCINE [facility] (1 of 4 - PCV13) [code = Hos pital 65+ PNEUMOCOCCAL VACCINE (1 of 4 - PCV13)] Future Scheduled DIABETES: RETINAL EYE [facility] EXAM [code = DIABETES: Hospi sean RETINAL EYE EXAM] Future Scheduled DIABETIC FOOT EXAM [code [facility] = DIABETIC FOOT EXAM] Hospit al Future Scheduled COVID-19 VACCINE (1) Met [facility] Test [code = COVID-19 VACCINE Hos pital (1)] Future Scheduled COLONOSCOPY SCREENING [facility] Test [code = COLONOSCOPY Hospital SCREENING] Future Scheduled SHINGLES VACCINES (#1) M ethodist Test [code = SHINGLES Hospital VACCINES (#1)] Future Scheduled INFLUENZA VACCINE [code [facility] = INFLUENZA VACCINE] Hospita l Future Scheduled EVENT MONITOR [code = 1 Occurrences [facility] Test 28442] starting of Medicine 11/19/2019 until 02/17/2020 Encounters Start End Encounter Admission Attending Care Care Encounter Source Date/Time Date/Time Type Type Clinicians Facility Department ID 2020 Outpatient Provider, CHRISTIAN HCAPM [id number] [facility] 10:29:00 Undefined 34 [facility] 2020 Inpatient KENDRA Curtis [id number] [facility] 10:29:00 Sekou 19 [facility] 2020 Inpatient KENDRA Espino [id number] [facility] 10:28:59 Fausto 61 [facility] 2020-06-03 Inpatient KENDRA CurtisCL [id number] [facility] 07:15:00 Sekou [id number] [facility] 2020-05-19 Inpatient UR Kirsten, HCACL REHA [id number] [facility] 18:00:00 Sekou 461101 [facility] 2020-05-13 Inpatient HCACL DIGNA [id number] [facility] 01:15:00 879180 [facility] 2020-12-07 2020-12-07 Outpatient [facility] [id number] [place] 00:00:00 00:00:00 HEAVENLY [address] 2020-10-01 2020-10-06 Inpatient [facility] 012 [id number] [address] [place] 00:00:00 00:00:00 KUNLOS [address] 2020-05-12 2020-05-12 Outpatient TORI, HCAPM RADI [id number] [facility] 21:45:00 21:45:00 ELISHA 108657 [facility] 2020-04-27 2020-04-27 Telemedici Obi Kerr 1.2.840.1 [id number] Methodi 15:36:30 16:10:[address] 3.430.2.7 Hospit a .3.253695 l .8 2020-04-27 2020-04-27 Travel 1.2.840.1 1.2.521.219 8518 825399 Methodi 00:00:00 00:00:[address] 3.430.2.7 0.2.7.3.698 Ho spita .3.528439 084.8 l .8 2020-04-26 2020-04-26 Travel 1.2.840.1 1.2.921.052 8567 766079 Methodi 00:00:00 00:00:[address] 3.430.2.7 0.2.7.3.698 Ho spita .3.756524 084.8 l .8 2020-04-13 2020-04-18 [facility] 1.2.840.1 [id number] 682 8001115 Methodi 11:45:02 00:23:05 Visit Archie 16908.1.[address] 3.430.2.7 Hospit a .3.970467 l .8 2020-04-13 2020-04-13 Travel 1.2.840.1 1.2.810.592 2007 114579 Methodi 00:00:00 00:00:[address] 3.430.2.7 0.2.7.3.698 Ho spita .3.264229 084.8 l .8 2020-04-05 2020-04-05 Abstract Sugar 1.2.840.1 [id number] 422 3797048 Methodi 00:00:00 00:00:[address] 3.430.2.7 Hospit a .3.507287 l .8 2020-04-04 2020-04-04 [facility] 1.2.840.1 [id number] 255 5757015 Methodi 13:34:38 14:35:21 Visit Archie 91569.1.[address] 3.430.2.7 Hospit a .3.595263 l .8 2020-04-04 2020-04-04 Travel 1.2.840.1 1.2.715.255 5378 072235 Methodi 00:00:00 00:00:[address] 3.430.2.7 0.2.7.3.698 Ho spita .3.163093 084.8 l .8 2020-04-01 2020-04-01 Orders Sugar 1.2.840.1 [id number] 2099 986805 Methodi 00:00:00 00:00:00 Only Emilee [address]266.1.[address] 3.430.2.7 Hospit a .3.941660 l .8 2020-04-01 2020-04-01 Travel 1.2.840.1 1.2.236.310 3477 611926 Methodi 00:00:00 00:00:[address] 3.430.2.7 0.2.7.3.698 Ho spita .3.584722 084.8 l .8 2020-03-18 2020-03-26 [facility] Suzanne Arvizukant 1.2.840 .1 [id number] Methodi 15:51:00 11:35:00 Encounter Clint King 57949.1.[address] Dickson, Umar 3.430.2.7 Hos imelda .3.023960 l .8 2020-03-22 2020-03-22 Anesthesia Ame Liu 1.2.840.1 [id number] 84 4274603656 Methodi 12:47:00 16:31:00 Event Clint Graham 73793.1.[address] 3.430.2.7 Hospit a .3.965026 l .8 2020-03-22 2020-03-22 Surgery Obi Kerr 1.2.840.1 [id number] 795 1035239 Methodi 12:53:00 14:38:[address] 3.430.2.7 Hospit a .3.032448 l .8 2019-11-19 2019-11-19 Office CHELSEA York 1.2.840.[address] [place] [address] 10:50:53 15:23:52 Visit Oswald S AMBULATOR 350.1.13.21 College Y 0.2.7.2.686 of 832.5578272 [facility] 300 e 2019-11-19 2019-11-19 Office CHELSEA York 1.2.840.114 602273 10:50:53 15:23:52 Visit Oswald S AMBULATOR 350.1.13.21 Y 0.2.7.2.686 006.8818297 300 2019-11-11 2019-11-11 Emergency [facility] 1.2.840.114 78 785381 Univers 17:16:00 22:21:00 Lisa Pineda 350.1.13.10 i ty of [place] 4.2.7.2.686 [facility] 310.3026138 [address] 2019-11-11 2019-11-11 Emergency Wanda Henson [facility] 1.2.840.114 78 390840 17:16:00 22:21:00 Lisa Pineda 350.1.13.10 [place] 4.2.7.2.686 [place] 951.0206873 [facility] 2019-11-11 2019-11-11 Emergency X Wanda HENSON [facility] ERT 708461 0800 Univers 17:16:00 17:16:00 ity [facility] 2019-11-03 2019-11-03 Telephone Melany, 1.2.840.1 [id number] 2100 762983 Methodi 09:01:34 09:25:16 Consult Liss Baxter 01915.1.[address] 3.430.2.7 Hospit a .3.347264 l .8 2014-02-18 2014-02-18 Office [facility] [id number] 141 Memoria 00:00:00 00:00:00 Visit artie Marquez 641627 [facility] 2014-02-18 2014-02-18 Lab Report [facility] 1736 729319 Memoria 00:00:00 00:00:00 artie Marquez 321719 madhu [facility] 2013-01-23 2013-01-23 Lab Report [facility] 1702 331676 Memoria 00:00:00 00:00:00 artie Marquez 444221 [facility] Results Test Description Test Time Test Comments Results Result [facility] e Comments - XR CHEST 1 V 2020-05-31 14:08:00 [facility] : 1945 Sex: M FAX: Sekou Jeffery [phone] [place]: St: ADM Name: DARIEN HUYNH [facility] : 1945 Age/S: 74/M [address] [place] [address] Blvd Unit #: [id number] Loc: [address] [address] Phys: Sekou Curtis MD Acct: [id number] Dis Date: Status: ADM IN PHONE #: [phone] Exam Date: 05/31/20201405 FAX #: [phone] Reason: HD protocol, need to make sure no TB EXAMS: CPT CODE: [id number] XR CHEST 1 V 54091 EXAM: Single view AP chest. EXAM DATE: [...] By: Enedelia Orig Print D/T: S: 05/31/2020 (9020) PAGE 1 Signed Report - XR CHEST 1 V 2020-05-31 14:08:00 [facility] : 1945 Sex: M FAX: Sekou Jeffery [phone] [place]: St: DIS Name: DARIEN HUYNH [facility] : 1945 Age/S: 74/M [address] [place] [address] Blvd Unit #: [id number] Loc: [place] [address] Phys: Sekou Curtis MD Acct: [id number] Dis Date: Status: DIS IN PHONE #: [phone] Exam Date: 05/31/2020 1406 FAX #: [phone] Reason: HD protocol, need to make sure no TB EXAMS: CPT CODE: [id number] XR CHEST 1 V 30913 EXAM: Single view AP chest. EXAM DATE: [...] Technologist: Jude Barbour RT(R) Trnscrd Date/Time/By: 05/31/2020 (4360) : By: Enedelia Orig Print D/T: S: 05/31/2020 (2847) PAGE 1 Signed Report BASIC METABOLIC PANEL [...] code = CA) 8.5 mg/dL 8.0-10.5 N [id number] 05:15:00 Test Item Value Reference Range Interpretation Comments ALBUMIN (test code = ALB) 3.10 g/dL 3.4-5.0 L [id number] 05:15:00 Test Item Value Reference Range Interpretation Comments PREALBUMIN (test code = PREALB) 27.0 mg/dL 16.0-40.0 N [id number] 23:17:00 Test Item Value Reference Range Interpretation Comments GLUBED (test code = 95 MG/DL 70-110 N Performe d by certified 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 2 mg/dL BASIC METABOLIC [id number] 07:53:00 Test Item Value Reference Range Interpretation [...] 8.2 mg/dL 8.0-10.5 N CA) BASIC METABOLIC [id number] 04:28:00 Test Item Value Reference Range Interpretation [...] 9.3 mg/dL 8.0-10.5 N CA) CBC W/AUTO [id number] 08:31:00 Test Item Value Reference Range Interpretation [...] (test code NO = MDIFF) BASIC METABOLIC [id number] 07:59:00 Test Item Value Reference Range Interpretation [...] - USG NDL PLACEMENT (Bxg/Asp)2020-05-24 15:12:00 [facility] : 1945 Sex: M Name: [facility] 1945 Age/S: 74 / M [address] [place] [address] Unit #: [id number] Loc: [place] [address] Phys: Albaro Sheikhnie NPAcct: [id number] Dis Date: Status: ADM IN PHONE #:[phone] Exam Date: 05/24/2020 1434 FAX #: [phone] Reason: right aka fluid collection EXAMS: CPT CODE: [id number] USG NDL PLACEMENT (Bxg/Asp) 98560 PROCEDURE: Ultrasound-guided right knee stump fluid collection. [...] Signed Report- USG NDL PLACEMENT (Bxg/Asp)2020-05-24 15:12:00 [facility] : 1945 Sex: M Name: DARIEN HUYNH [facility] [place] : 1945 Age/S: 74 / M [address] [place] [address] Bl Unit #: [id number] Loc: [place] [address] Phys: Jonathan Sheikh NPAcct: [id number] Dis Date: Status: DIS IN PHONE #:[phone] Exam Date: 05/24/2020 1434 FAX #: [phone] Reason: right aka fluid collection EXAMS: CPT CODE: [id number] USG NDL PLACEMENT (Bxg/Asp) 73670 PROCEDURE: Ultrasound-guided right knee stump fluid collection. [...] (1511) [id number] Orig Print D/T: S: 05/24/2020 (808) Probe: PAGE 1 Signed Report- CT LOWER EXTRM W/O C [id number] 18:02:00 [facility] : 1945 Sex: M Name: DARIEN HUYNH [facility] : 1945 Age/S: 74 / M [address] [place] [address] Unit #: [id number] Loc: [place] [address] Phys: Jonathan Sheikh NPAcct: [id number] Dis Date: Status: ADM IN PHONE #:[phone] Exam Date: 05/23/2020 1728 FAX #: [phone] Reason: right bka, r/o fluid collection EXAMS: CPT CODE: [id number] [place] L[place]TRM W/[place] [address] [place] right femur without contrast. INDICATION: Right [...] iterative reconstruction techniques. DLP: 566 mGy-cm FINDINGS: Nplof-rsr-puxg amputation has been performed. A permeative pattern [...] Mena M.D. CC: Sekou Curtis; Jonathan Sheikh FREIGHT CLERK Technologist:David Aguirre, (R)(CT) CTDI: DLP: Trnscb Date/Time: 05/23/2020 (1801) Michael.SG9 Orig Print D/T: S: 05/23/2020 (1805) PAGE 1 Signed Report- CT LOWER EXTRM W/O C [id number] 18:02:00 [facility] : 1945 Sex: M Name: DARIEN HUYNH [facility] : 1945 Age/S: 74 / M [address] [place] [address] Bl Unit #: [id number] Loc: [place] [address] Phys: Jonathan Sheikh NPAcct: [id number] Dis Date: Status: DIS IN PHONE #:[phone] Exam Date: 05/23/2020 1728 FAX #: [phone] Reason: right bka, r/o fluid collection EXAMS: CPT CODE: [id number] [place] L[place]TR[place] W/[place] [address] [place] right femur without contrast. INDICATION: Right [...] iterative reconstruction techniques. DLP: 566 mGy-cm FINDINGS: Uxcpd-dpw-ywqn amputation has been performed. A permeative pattern [...] Mena M.D. CC: Sekou Curtis; Jonathan Sheikh FREIGHT CLERK Technologist:David Aguirre, RT(R)(CT) CTDI: DLP: Trnscb Date/Time: 05/23/2020 (1801) CarlitoSG9 Orig Print D/T: S: 05/23/2020 (3024) PAGE 1 Signed ReportBASIC METABOLIC [id number] 13:38:00 Test Item Value Reference Range Interpretation [...] code = 9.6 mg/dL 8.0-10.5 N CA) [id number] 13:38:00 Test Item Value Reference Range Interpretation Comments PHOSPHOROUS (test code = PHOS) 3.9 MG/DL 2.5-4.9 N [id number] 13:36:00 Test Item Value Reference Range Interpretation Comments ALBUMIN (test code = ALB) 3.20 g/dL 3.4-5.0 L [id number] 13:36:00 Test Item Value Reference Range Interpretation Comments PREALBUMIN (test code = PREALB) 14.3 mg/dL 16.0-40.0 L CBC W/AUTO [id number] 13:15:00 Test Item Value Reference Range Interpretation [...] (test code NO = MDIFF) SED RATE [id number] 08:19:00 Test Item Value Reference Range Interpretation Comments SED RATE JOSSY (test code = 114 mm/hr 0-15 H SEDW) [id number] 08:09:00 Test Item Value Reference Range Interpretation Comments PREALBUMIN (test code = PREALB) 13.1 mg/dL 16.0-40.0 L C REACTIVE [id number] 08:08:00 Test Item Value Reference Range Interpretation Comments C REACTIVE PROTEIN (test code = 192.0 mg/L <10.0 H CRP) CBC W/AUTO [id number] 07:57:00 Test Item Value Reference Range Interpretation [...] MDIFF) - XR HIP W/PEL UNI 2+V [id number] 18:35:00 [facility] : 1945 Sex: M FAX: Sekou Jeffery [phone] [place]: St: ADM FAX: Dusty Smiley [phone] Name: DARIEN HUYNH [facility] [place] : 1945 Age/S: 74/M [address] [place], [place] [address]vd Unit #: [id number] Loc: [address] [place] [address] Phys: Dusty mSiley NP Acct: [id number] Dis Date: Status: ADM IN PHONE #: [phone] Exam Date: 05/21/2020 1735 FAX #: [phone] Reason: left hip pain EXAMS:CPT CODE: [id number] XR HIP W/PEL UNI 2+[place] [address] 2+ RADIOGRAPHIC VIEWS LEFT HIP INDICATION: left [...] Signed Report- XR HIP W/PEL UNI 2+V [id number] 18:35:00 [facility] : 1945 Sex: M FAX: Rubina Juan AntonioSekou anna Yaritza [phone] [place]: St: DIS FAX: Dusty Smiley [phone] Name: DARIEN HUYNH [facility] : 1945 Age/S: 74/M [address] [place] [address] Unit #: [id number] Loc: [place] [address] Phys: Dusty Smiley NP Acct: [id number] Dis Date: Status: DIS IN PHONE #: [phone] Exam Date: 05/21/20201734 FAX #: [phone] Reason: left hip pain EXAMS:CPT CODE: [id number] XR HIP W/PEL UNI 2+[place] [address] 2+ RADIOGRAPHIC VIEWS LEFT HIP INDICATION: left [...] (test code NO = MDIFF) BASIC METABOLIC [id number] 07:40:00 Test Item Value Reference Range Interpretation [...] 9.1 mg/dL 8.0-10.5 N CA) COMPREHENSIVE METABOLIC [id number] 06:03:00 Test Item Value Reference Range Interpretation [...] TOTAL (test code = ALKP) CBC W/AUTO [id number] 05:49:00 Test Item Value Reference Range Interpretation [...] (test code NO = MDIFF) BASIC METABOLIC [id number] 08:43:00 Test Item Value Reference Range Interpretation [...] code = 9.0 mg/dL 8.0-10.5 N CA) [id number] 08:43:00 Test Item Value Reference Range Interpretation Comments PHOSPHOROUS (test code = PHOS) 4.7 MG/DL 2.5-4.9 N CBC W/AUTO [id number] 08:29:00 Test Item Value Reference Range Interpretation [...] (test code NO = MDIFF) BASIC METABOLIC [id number] 07:42:00 Test Item Value Reference Range Interpretation [...] 9.5 mg/dL 8.0-10.5 N CA) BASIC METABOLIC [id number] 09:55:00 Test Item Value Reference Range Interpretation [...] code = 8.7 mg/dL 8.0-10.5 N CA) [id number] 09:55:00 Test Item Value Reference Range Interpretation Comments PHOSPHOROUS (test code = PHOS) 5.2 MG/DL 2.5-4.9 H [id number] 09:55:00 Test Item Value Reference Range Interpretation Comments MAGNESIUM (test code = MAG) 1.89 mg/dL 1.80-2.40 N CBC W/AUTO [id number] 09:28:00 Test Item Value Reference Range Interpretation [...] REQUIRED (test code = MDIFF) CBC W/AUTO [id number] 09:28:00 Test Item Value Reference Range Interpretation [...] (test code NO = MDIFF) ACUTE HEPATITIS [id number] 13:08:00 Test Item Value Reference Range Interpretation [...] COMMENTS: At start of hemodialysisAB HEPATITIS B [id number] 13:08:00 Test Item Value Reference Range Interpretation Comments AB HEPATITIS B 22.1 mIU/mL See_Comment Status of I mmunity SURFACE (test code = HBSAB) Anti-HBs Level --- I nconsis tent with Immun ity 0 .0 - 9.9Consistent w ith Immunity >9.9Performed A t: HD [facility] [address] [id number] jaswinder Peralta MD Ph:[phone] [Automated mess age] The system 2Peer (Qlipso) generated this result transmitted ref erence range: Immunity >9.9. The reference r za was not used to interpret this result as normal/abnor mal. COMMENTS: At start of hemodialysisACUTE HEPATITIS [id number] 10:00:00 Test Item Value Reference Range Interpretation [...] COMMENTS: At start of hemodialysisAB HEPATITIS B [id number] 10:00:00 Test Item Value Reference Range Interpretation Comments AB HEPATITIS B SURFACE (test code = HBSAB) COMMENTS: At start of hemodialysisBASIC METABOLIC [id number] 09:23:00 Test Item Value Reference Range Interpretation [...] 8.5 mg/dL 8.0-10.5 N CA) CBC W/AUTO [id number] 09:16:00 Test Item Value Reference Range Interpretation [...] (test code NO = MDIFF) RENAL FUNCTION [id number] 06:58:00 Test Item Value Reference Range Interpretation [...] code = 3.0 MG/DL 2.5-4.9 N PHOS) [id number] 06:58:00 Test Item Value Reference Range Interpretation Comments MAGNESIUM (test code = MAG) 1.81 mg/dL 1.80-2.40 N CBC W/AUTO [id number] 06:49:00 Test Item Value Reference Range Interpretation [...] (test code NO = MDIFF) CBC W/AUTO [id number] 06:45:00 Test Item Value Reference Range Interpretation [...] code = MDIFF) - CT HEAD/BRAIN W/O [id number] 04:29:00 [facility] : 1945 Sex: M Name: DARIEN HUYNH [facility] [place] : 1945 Age/S: 74 / M [address] [place] [address] Unit #: [id number] Loc: [place] [address] Phys: [facility]ust[facility] [id number] Dis Date: Status: ADM IN PHONE #:[phone] Exam Date: 05/13/2020413 FAX #: [phone] Reason: TRAUMA EXAMS: CPT CODE: [id number] CT HEAD/BRAIN W/O CONT 96833 STUDY: - CT HEAD/BRAIN W/O CONT 05/13/2020 5:00 AM Ordering Physician: Fausto Espino MD Patient Name: DARIEN HUYNH MR: [id number] : 1945; Age: 74 years y/o Male [...] 1 Signed Report (CONTINUED) Name: DARIEN HUYNH [facility] [place] : 1945 Age/S: 74 / M [address] [place] [address] Unit #: [id number] Loc: [place] [address] Phys: Fausto Espino MD Acct: [id number] Dis Date: Status: ADM IN PHONE #: [phone] Exam Date: FAX #: [phone] Reason: TRAUMA EXAMS: CPT CODE: [id number] CT HEAD/BRAINW/O CONT 65488 <Continued> MASTOIDS: Clear. ORBITS: The globes are [...] PAGE 2 Signed Report- CT HEAD/BRAIN W/O [id number] 04:29:00 [facility] : 1945 Sex: M Name: DARIEN HUYNH : 1945 Age/S: 74 / M [address] [place] [address] Unit #: [id number] Loc: [place] [address] Phys: [facility]usto [facility]ino [facility] [id number] Dis Date: Status: DIS IN PHONE #:[phone] Exam Date: 05/13/2020 0414 FAX #: [phone] Reason: TRAUMA EXAMS: CPT CODE: [id number] CT HEAD/BRAIN W/O CONT 52894 STUDY: - CT HEAD/BRAIN W/O CONT 05/13/2020 5:00 AM Ordering Physician: Fausto Espino MD Patient Name: DARIEN HUYNH MR: [id number] : 1945; Age: 74 years y/o Male [...] HUYNH : 1945 Age/S: 74 / M [address] [place] [address] Blvd Unit #: [id number] Loc: [place] [address] Phys: Fausto Espino MD Acct: [id number] Dis Date: Status: DIS IN PHONE #: [phone] Exam Date: FAX #: [phone] Reason: TRAUMA EXAMS: CPT CODE: [id number] CT HEAD/BRAINW/O CONT 16426 <Continued> MASTOIDS: Clear. ORBITS: The globes are [...] (042) t.SDR.TP6 Orig Print D/T: S: 05/13/2020 (0436) PAGE 2 Signed ReportCOVID 19 Asymptomatic IH [id number] 03:09:00 Test Item Value Reference Range Interpretation [...] high or waivedcomplexit y tests. BASIC METABOLIC [id number] 02:14:00 Test Item Value Reference Range Interpretation [...] 8.5 mg/dL 8.0-10.5 N CA) HEPATIC FUNCTION [id number] 02:14:00 Test Item Value Reference Range Interpretation [...] 112 IUnit/L 20-125 N code = ALKP) [id number] 02:14:00 Test Item Value Reference Range Interpretation Comments LIPASE (test code = LIP) 185 U/L 13-57 H [id number] 02:14:00 Test Item Value Reference Range Interpretation [...] or Legal orEmployment ev aluation purposes. PROTHROMBIN [id number] 02:11:00 Test Item Value Reference Range Interpretation [...] o prevent recurre nt infarct). THROMBOPLASTIN TIME [id number] 02:11:00 Test Item Value Reference Range Interpretation Comments THROMBOPLASTIN TIME 31.8 Seconds 25.0-39.5 N Ther apeutic PARTIAL (test code = Range: 50.4 - 88.3 PTT) Seconds Effective 05/27/2018 PROTHROMBIN [id number] 02:10:00 Test Item Value Reference Range Interpretation [...] o prevent recurre nt infarct). THROMBOPLASTIN TIME [id number] 02:10:00 Test Item Value Reference Range Interpretation Comments THROMBOPLASTIN TIME PARTIAL (test Seconds 25.0-39.5 code = PTT) CBC W/AUTO [id number] 01:59:00 Test Item Value Reference Range Interpretation [...] NO = MDIFF) - CT HEAD/BRAIN W/O [id number] 23:15:00 [facility] : 1945 Sex: M Name: DARIEN HUYNH [facility] : 1945 Age/S: 74 / M [address] [address] [place] Unit #: [id number] Loc: Tony F[place] [address] Phys: Undefined Provider Acct: [id number] Dis Date: Status: REG REF PHONE #: [phone] Exam Date: 05/12/20207 FAX #: Reason: s/p fall Report Has Been Amended EXAMS: CPT: [id number] CT HEAD/BRAIN W/O CONT 68650 Addendum - 05/12/2020 SIGNED 05/12/[address]: [id number]/CTHDBRWO Findings were notified to head housekeeper Huyen at 11:15 PM on 05/12/2020. at 2315 Reported and signed by: Kaela Lindsey M.D. Transcribed: 05/12/2020 (0741) [email or web address] Report EXAM: - CT HEAD/BRAIN W/O [...] HUYNH : 1945 Age/S: 74 / M [id number] [place] Unit #: [id number] Loc: Tony Flower77784 Phys: Undefined Provider Acct: [id number] Dis Date: Status: REG REF PHONE #: [phone] Exam Date: 05/12/20201 FAX #: Reason: s/p fall Report Has Been Amended EXAMS: CPT: [id number] CT HEAD/BRAIN W/O CONT 96088 <Continued> frontoparietal lobe without midline shift or [...] PAGE 2 Signed Report- CT HEAD/BRAIN W/O [id number] 23:15:00 [facility] : 1945 Sex: M Name: DARIEN HUYNH [facility] : 1945 Age/S: 74 / M [address] [place] Unit #: [id number] Loc: [place] [address] Phys: Undefined Provider Acct: [id number] Dis Date: Status: REG REF PHONE #: [phone] Exam Date: 05/12/20202213 FAX #: Reason: s/p fall Report Has Been Amended EXAMS: CPT: [id number] CT HEAD/BRAIN W/O CONT 43579 Addendum - 05/12/2020 SIGNED 05/12/[address]: [id number]/CTHDBRWO Findings were notified to head housekeeper Huyen at 11:15 PM on 05/12/2020. at 2315 Reported and signed by: Kaela Lindsey M.D. Transcribed: 05/12/2020 (0645) [email or web address] Report EXAM: - CT HEAD/BRAIN W/O [...] HUYNH : 1945 Age/S: 74 / M [id number] [place] Unit #: [id number] Loc: Ching [id number] Phys: Undefined Provider Acct: [id number] Dis Date: Status: REG REF PHONE #: [phone] Exam Date: 05/12/20202213 FAX #: Reason: s/p fall Report Has Been Amended EXAMS: CPT: [id number] CT HEAD/BRAIN W/O CONT 69982 <Continued> frontoparietal lobe without midline shift or [...] PAGE 2 Signed Report- CT HEAD/BRAIN W/O QQDC3521-99-05 22:51:00 [facility] : 1945 Sex: M Name: DARIEN HUYNH [facility] : 1945 Age/S: 74 / M [address] [address] [place] Unit #: [id number] Loc: [place] [address] Phys: Undefined Provider Acct: [id number] Dis Date: Status: REG REF PHONE #: [phone] Exam Date: 05/12/2020 4069 FAX #: Reason: s/p fall EXAMS: CPT: [id number] CT HEAD/BRAIN W/O CONT 83143 EXAM: -CT HEAD/BRAIN W/O CONT LOCATION: H61 [...] HUYNH : 1945 Age/S: 74 / M [address] [facility] Unit #: [id number] Loc: [place] [address] Phys: Undefined Provider Acct: [id number] Dis Date: Status: REG REF PHONE #: [phone] Exam Date: 05/12/2020 3875 FAX #: Reason: s/p fall EXAMS: CPT: [id number] CT HEAD/BRAIN W/O CONT 32890 <Continued> Electronically Signedby Armida Lindsey on 05/12/2020 at 2251 Reported and signed by: Kaela Lindsey M.D. CC: Technologist:Liss Jordan RT(R)(CT); ... CTDI: DLP: Trnscb Date/Time: 05/12/2020 (2250) JavyR.TH15 Orig Print D/T: S: 05/12/2020 (9648) PAGE 2 Signed Report- CT C-SPINE W/O [id number] 22:40:00 [facility] : 1945 Sex: M Name: DARIEN HUYNH [facility] : 1945 Age/S: 74 / M [address] [address] [place] Unit #: [id number] Loc: [place] [address] Phys: Undefined Provider Acct: [id number] Dis Date: Status: REG REF PHONE #: [phone] Exam Date: 05/12/20202213 FAX #: Reason: s/p fall EXAMS: CPT: [id number] CT C-SPINE W/O CONT 47812 EXAM: -CT C-SPINE W/O CONT LOCATION: [facility] CLINICAL HISTORY/INDICATION: Fall withpain. COMPARISON: None [...] HUYNH : 1945 Age/S: 74 / M [address] [address] [place] Unit #: [id number] Loc: [place] [address] Phys: Undefined Provider Acct: [id number] Dis Date: Status: REG REF PHONE #: [phone] Exam Date: 05/12/20202213 FAX #: Reason: s/p fall EXAMS: CPT: [id number] CT C- SPINE W/O CONT 87245 <Continued> spinal canal stenosis. C3-C4: Diffuse disc [...] (2239) t.RYANR.TH15 Orig Print D/T: S: 05/12/2020 (2240) PAGE 2 Signed Report- CT C-SPINE W/O IRKF4652-08-80 22:40:00 [facility] : 1945 Sex: M Name: DARIEN HUYNH [facility] : 1945 Age/S: 74 / M [address] [facility] Unit #: [id number] Loc: [place] [address] Phys: Undefined Provider Acct: [id number] Dis Date: Status: REG REF PHONE #: [phone] Exam Date: 05/12/20202213 FAX #: Reason: s/p fall EXAMS: CPT: [id number] CT C-SPINE W/O CONT 41377 EXAM: -CT C-SPINE W/O CONT LOCATION: H61 [...] Report (CONTINUED) Name: DARIEN HUYNH [facility] : 1945 Age/S: 74 / M [address] [address] [place] Unit #: [id number] Loc: [place] [address] Phys: Undefined Provider Acct: [id number] Dis Date: Status: REG REF PHONE #: [phone] Exam Date: 05/12/20202 FAX #: Reason: s/p fall EXAMS: CPT: [id number] CT C- SPINE W/O CONT 94472 <Continued> spinal canal stenosis. C3-C4: Diffuse disc [...] (2239) tMIKOR.TH15 Orig Print D/T: S: 05/12/2020 (0620) PAGE 2 Signed ReportAFB ebukezc6958-10-44 05:13:59 Test Item Value Reference Range Interpretation Comments AFB culture isolate No growth after 6 (test code = 543-9) weeks of incubation. [facility]htuwch2708-93-95 06:15:49 Test Item Value Reference Range Interpretation Comments Fungus culture isolate No growth after 4 (test code = 1441) weeks of incubation. [facility] [place] < 1 Tisg9868-27-28 21:39:42EXAMINATION: OR FL < 1 HOUR C-arm [...] be issued by the physician performing the procedure.[id number] Anaerobic etelrqj8829-86-31 14:47:42 Test Item Value Reference Range Interpretation Comments Anaerobic culture No anaerobic organisms isolate (test code = isolated. 552) [facility] RockAFB wkcyk1441-58-38 07:48:01 Test Item Value Reference Range Interpretation Comments AFB stain (test code = No acid fast bacilli 676-7) (AFB) seen. [facility] RockAerobic fnuljwn1215-43-44 07:48:01 Test Item Value Reference Range Interpretation Comments Aerobic culture isolate No growth after 3 (test code = 498) days. [facility] RockFungus gqkra1859-81-61 07:48:01 Test Item Value Reference Range Interpretation Comments Fungus smear (test code = No fungi observed. 1443) [facility] RockGram nloim8729-87-61 07:48:01Gram stain isolateFew WBC'sNo organisms seen Comment: Specimen InformationSpecimen Source: TissueSpecimen Site: Femur: Right femoral canal tissue [facility] airbkbs7233-17-96 21:19:54 Test Item Value Reference Range Interpretation Comments Case number (test code = [id number]) Surgical pathology See link below for report (test code = PDF Lab Report 2255) Result status (test code This is Final Report = [id number]) for [id number] [facility] carotid wjryib7945-33-64 00:39:00 Vascular Ultrasound Laboratory Carotid Artery Duplex Report [address] [place] [address] For head of quality purposes, the categorization of the degree of the stenosis of this exam is based on criteria described in the IAC carotid stenosis grading white paper( www.intersocietal.org/Vascular) and Shagufta Andrews., Ritu Armendariz., et al. Carotid artery stenosis: maya-scale and Doppler US diagnosis--Society of Radiologists in Ultrasound Consensus Conference. Radiology. 2003 Nov; 229(2):340-6. Pat.Name: DARIEN HUYNH Pat.ID: [id number] .Date: 03/23/2020 Refer.MD: BEAR MARIEE MD Exam Time: 11:25:00 AM Study Type:Carotid Height: 68in Weight: 186lb BSA: 1.98 m2 Age: 9 1945,74Y Sex: MALE Sonogrphr: NOEMI Chapman Pat. Stat.:Inpatient Room: [address] Vol: BE, CPT - 4: [address]161 Echo Event ID:[id number] Order ID: [id number] Reason for Study:Cervical bruit, no prior carotid [...] EDV 23 cm/sLeft ICA Mid ICA Mid MUA623 cm/s Left ICA Prox ICA Prox PSV 125 cm/s Left Subclavian Subclavian PSV 312 cm/s Subclavian EDV 66.6 cm/sRight SCA Prox SCA Prox PSV 172 cm/s SCA Prox EDV 22 cm/sLeft SCA Prox SCA Prox PSV 312 cm/s SCA Prox EDV 66 cm/sRight ICA/CCA Ratio ICA/CCA PSV 1.67 Left ICA/CCA Ratio ICA/CCA PSV 1.14 Signed 03/23/2020 06:39 PMAngel Liagn MD, RPVIInterce, Radiology Results In - 16:40 PM CST Vascular Ultrasound Laboratory Carotid Artery Duplex Report [address] [place] [address] For head of quality purposes, the categorization of the degree of the stenosis of this exam is based on criteria described in the IAC carotid stenosis grading white paper( www.intersocietal.org/Vascular) and Shagufta Andrews., Ritu Armendariz., et al. Carotid artery stenosis: maya-scale and Doppler US diagnosis--Society of Radiologists in Ultrasound Consensus Conference. Radiology. 2003 Nov; 229(2):340-6. Pat.Name: DARIEN HUYNH Pat.ID: [id number] .Date: 03/23/2020 Refer.MD: BEAR MARIEE MD Exam Time: 11:25:00 AM Study Type:Carotid Height: 68in Weight: 186lb BSA: 1.98 m2 Age: 9 1945,74Y Sex: MALE Sonogrphr: NOEMI Chapman Pat. Stat.:Inpatient Room: [address] Vol: BE, CPT - 4: [address]00 Echo Event ID:[id number] Order ID: [id number] Reason for Study:Cervical bruit, no prior carotid [...] 1.14 Signed 03/23/2020 06:39 PMAngel Liang MD, [facility]2021-02-09 19:25:28Tejal Simpson Sing 03/22/2020 1:45 PMAirway Date/Time: 03/22/2020 1:00 PM Location: OR Performed by: CANVAS CUTTER MACHINE/AAAnesthesiologist: Tahmina Mccloud/CANVAS CUTTER MACHINE/AA: Tejal SimpsonAuthorized by: Liu Mccloud Urgency: ElectiveDifficult [...] First attempt using Sheikh 2 blade by CANVAS CUTTER MACHINE. Second attempt with MD with MAC 3. Grade 3b view, secondary to neck stiffness.Grade 1 view with glidescope. ETT passed atraumatically.[facility] RockTransthoracic Echocardiogram Complete, (w Contrast, Strain and 3D if needed)2020-03-19 20:20:00 Echocardiography Report [address]Name: DARIEN HUYNH Pat.ID: [id number] .Date: 03/19/2020 Refer.MD: CLINT KING DO Exam Time: 11:43:00 AM Study Type:Routine Echo Height: 68in Weight: 185.61lb BSA: 1.98 m2 Age: [birth year],74Y Sex: MALE BP: 110/57 HR: 70 bpm Sonogrphr: NILSON Conde. Stat.:Inpatient Room: [facility] Study Status:Final Echo Event ID:[id number] Order ID: [id number] Reason for Study:Perioperative function eval without cardiac [...] estimate PA systolic pressure. MEASUREMENTS:------- 2DParasternal Long [place] Ao An 2.2 cm LVPWd 1.3 cm [...] 03/19/2020 2:20 PM CST Echocardiography Report [address] [place] [address] Pat.Name: DARIEN HUYNHNess Pat.ID: [id number] .Date: 03/19/2020 Refer.MD: CLINT KING DO Exam Time: 11:43:00 AM Study Type:Routine Echo Height: 68in Weight:185.61lb BSA: 1.98 m2 Age: 9 1945,74Y Sex: MALE BP: 110/57 HR: 70 bpm Sonogrphr: NILSON Conde Pat. Stat.:Inpatient Room: [facility] Study Status:Final Echo Event ID:[id number] Order ID: [id number] Reason for Study:Perioperative function eval without cardiac [...] estimate PA systolic pressure. MEASUREMENTS: 2DParasternal Long [place] Ao An 2.2 cm LVPWd 1.3 cm [...] M.D.[facility]I Lower Extremity Wo Contrast Crklt6591-21-36 13:07:30EXAMINATION: MRI LOWER EXTREMITY WO CONTRAST RIGHT [...] [facility] THIGH WO CONTRAST BGIIJ4214-14-88 12:29:55EXAMINATION: MRI KNEE WO CONTRAST RIGHT, MRI [...] with the fluid surrounding the tibial stem. [facility]-SSFYTP1Jh Interface, Radiology Results 03/19/2020 6:33 AM CST [...] communicate with the fluid surrounding the tibial stem.RM-ZUEFWI9PsevzkljjSurgery [facility] Knee Right Wo Chhyygan7511-86-95 12:29:55EXAMINATION: MRI KNEE WO CONTRAST RIGHT, MRI [...] with the fluid surrounding the tibial stem. [facility]- YINEEY8Kl Interface, Radiology Results Incoming - 03/19/2020 6:33 [...] communicate with the fluid surrounding the tibial stem.[facility]-BLXGZT1WuivvktguHCA [facility] hdkznoy2960-84-11 23:38:48 Test Item Value Reference Range Interpretation Comments Urine culture (test code = SEE COMMENT 9529304) [facility] RockXR Knee 1 Or 2 Vw Jgfpm6856-44-23 23:14:12EXAMINATION: XR KNEE 1 OR 2 VW RIGHT CLINICAL HISTORY: PAin and swelling COMPARISON: None IMPRESSION: There is a large zone of lucency 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 Infection cannot be excluded. There is a joint effusion present. There is no acute fracture or dislocation. There are vascular calcifications. [facility]7LM1509 J8Z Interface, Radiology Results Incoming 03/18/2020 5:17 [...] acute fracture or dislocation. 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 Infection cannot be excluded. Bones are osteopenic. No definite acute fracture is seen. 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 Infection cannot be excluded. Bones are osteopenic. No definite acute fracture is seen.[facility]2XF8222H1MFfolkieetAdventHealth Rollins BrookBJ A6774-87-13 02:22:00 Test Item Value Reference Range Interpretation Comments TROPONIN I (test <0.012 See_Comment [Automated code = 5189736055) message] The system which generated this result [...] ? Lab Interpretation Normal (test code = 80070-2) [facility] R0916-00-53 02:20:00 Test Item Value Reference Range Interpretation Comments TROPONIN I (test <0.012 See_Comment [Automated code = 0709239561) message] The system which generated this result [...] ? Lab Interpretation Normal (test code = 19600-4) General acute hospitalALYSIS2020-10-01 00:21:00 Test Item Value Reference Range Interpretation Comments APPEARANCE (test code = Clear Clear 6381796466) COLOR (test code = Yellow Yellow 3462132800) PH (test code = 4.8-8.0 8811012585) SP GRAVITY (test code = 1.003-1.030 2481787485) GLU U QUAL (test code = Normal Normal 2977644389) BLOOD (test code = Negative Negative 0263228165) KETONES (test code = Negative Negative 3600959401) PROTEIN (test code = 100 mg/dL Negative A 2887-8) UROBILIN (test code = Normal Normal 0317565705) BILIRUBIN (test code = Negative Negative 3614359493) NITRITE (test code = Negative Negative 8970650803) LEUK AJ (test code = Negative Negative 6430244218) RBC/HPF (test code = See_Comment H [Autom ated message] 6835381669) The system 2Peer (Qlipso) generated this result transmit amado reference range : 0 - 3 HPF. The refe rence range was not u sed to interpret th is result as normal/abnormal . WBC/HPF (test code = <1 See_Comment [Autom ated message] 3754887961) The system 2Peer (Qlipso) generated this result transmit amado reference range : 0 - 5 HPF. The refe rence range was not u sed to interpret th is result as normal/abnormal . BACTERIA (test code = Few Negative A 3495229989) MUCOUS (test code = Slight Negative LPF A 4907500342) SQ EPITH (test code = <1 HPF 8918060927) Lab Interpretation (test Abnormal code = 27956-5) General acute hospitalALYSIS2020-10-01 00:21:00 Test Item Value Reference Range Interpretation Comments APPEARANCE (test code = Clear Clear 1781650782) COLOR (test code = Yellow Yellow 8442954484) PH (test code = 4.8-8.0 6329706096) SP GRAVITY (test code = 1.003-1.030 9072455548) GLU U QUAL (test code = Normal Normal 3841097935) BLOOD (test code = Negative Negative 8354482080) KETONES (test code = Negative Negative 1590213006) PROTEIN (test code = 100 mg/dL Negative A 2887-8) UROBILIN (test code = Normal Normal 3869352018) BILIRUBIN (test code = Negative Negative 6174362102) NITRITE (test code = Negative Negative 4701110778) LEUK AJ (test code = Negative Negative 6707728671) RBC/HPF (test code = See_Comment H [Autom ated message] 1432581241) The system 2Peer (Qlipso) generated this result transmit amado reference range : 0 - 3 HPF. The refe rence range was not u sed to interpret th is result as normal/abnormal . WBC/HPF (test code = <1 See_Comment [Autom ated message] 1559578445) The system 2Peer (Qlipso) generated this result transmit amado reference range : 0 - 5 HPF. The refe rence range was not u sed to interpret th is result as normal/abnormal . BACTERIA (test code = Few Negative A 0601175992) MUCOUS (test code = Slight Negative LPF A 6901452297) SQ EPITH (test code = <1 HPF 9763863436) Lab Interpretation (test Abnormal code = 91544-8) [facility] HospitalXR CHEST 1 [id number] 23:24:26 No acute cardiopulmonary abnormality. Preliminary Report [...] reviewed this study and agree with theabove report.[facility] HospitalXR CHEST 1 NS7746-72-79 23:24:26 No acute cardiopulmonary abnormality. Preliminary Report [...] reviewed this study and agree with theabove report.[facility] COMP. METABOLIC PANEL (23385)2019-11-11 23:16:00 Test Item Value Reference Range Interpretation Comments NA (test code = 137 mmol/L 135-145 3331995285) K (test code = 4.0 mmol/L 3.5-5 8489062468) CL (test code = 94 mmol/L 98-108 L 4396227393) CO2 TOTAL (test code = 29 mmol/L 23-31 5205070517) AGAP (test code = 2-16 5128220687) BUN (test code = 63 mg/dL 7-23 H 3147892661) GLUCOSE (test code = 142 mg/dL 70-110 H 3050815965) CREATININE (test code = 5.82 mg/dL 0.6-1.25 H 6184999261) TOTAL BILI (test code = 0.4 mg/dL 0.1-1.0 6982131880) CALCIUM (test code = 9.8 mg/dL 8.6-10.6 2183625960) T PROTEIN (test code = 7.5 g/dL 6.3-8.2 7333151764) ALBUMIN (test code = 4.2 g/dL 3.5-5 6925236429) ALK PHOS (test code = 100 U/L 34-122 9003057205) ALTv (test code = 14 U/L 5-50 1742-6) AST(SGOT) (test code = 27 U/L 13-40 1230565539) eGFR Calculation mL/min/1.73m2 (Non-) (test code = 4721161146) eGFR Calculation mL/min/1.73m2 () (test code = 8374780380) JACQUELYN (test code = JACQUELYN) Association of [...] tests). Lab Interpretation Abnormal (test code = 60772-7) [facility] HospitalMAGNESIUM2020-09-30 23:16:00 Test Item Value Reference Range Interpretation Comments MAGNESIUM (test code = 7789788534) 2.5 mg/dL 1.7-2.4 H Lab Interpretation (test code = Abnormal 61662-1) [facility] HospitalCOMP. METABOLIC PANEL (25011)2019-11-11 23:16:00 Test Item Value Reference Range Interpretation Comments NA (test code = 137 mmol/L 135-145 3438792094) K (test code = 4.0 mmol/L 3.5-5 6755449912) CL (test code = 94 mmol/L 98-108 L 2248720000) CO2 TOTAL (test code = 29 mmol/L 23-31 2380419458) AGAP (test code = 2-16 5525170239) BUN (test code = 63 mg/dL 7-23 H 2724531202) GLUCOSE (test code = 142 mg/dL 70-110 H 2979463153) CREATININE (test code = 5.82 mg/dL 0.6-1.25 H 5377884414) TOTAL BILI (test code = 0.4 mg/dL 0.1-1.7 8332722278) CALCIUM (test code = 9.8 mg/dL 8.6-10.6 9138154993) T PROTEIN (test code = 7.5 g/dL 6.3-8.2 5586694919) ALBUMIN (test code = 4.2 g/dL 3.5-5 1282690657) ALK PHOS (test code = 100 U/L 34-122 0689896373) ALTv (test code = 14 U/L 5-50 1742-6) AST(SGOT) (test code = 27 U/L 13-40 6095250547) eGFR Calculation mL/min/1.73m2 (Non-) (test code = 5929918844) eGFR Calculation mL/min/1.73m2 () (test code = 2584404608) JACQUELYN (test code = JACQUELYN) Association of [...] tests). Lab Interpretation Abnormal (test code = 88193-1) [facility]2020-09-30 23:16:00 Test Item Value Reference Range Interpretation Comments MAGNESIUM (test code = 1560512932) 2.5 mg/dL 1.7-2.4 H Lab Interpretation (test code = Abnormal 49329-1) [facility] WITH CXIZ7448-28-69 22:53:00 Test Item Value Reference Range Interpretation Comments WBC (test code = See_Comment [Automated 8996-2) message] The sy stem which generated this result transmitted reference range : 4.20 - 10.70 10*3/?L. The reference range was not used to interpret this result as normal/abnormal . RBC (test code = See_Comment L [Automated 899-8) message] The sy stem which generated this [...] RDW-SD (test code = 46.1 fL 38.5-51.6 34743-6) RDW-CV (test code = 13.9 % 12.1-15.4 788-0) PLT (test code = See_Comment [Automated 777-3) message] The sy stem which generated this result transmitted reference range : 150 - 328 10*3/ ?L. The reference r za was not used to interpret this result as normal/abnormal . MPV (test code = 8.7 fL 9.8-13 L 65423-5) NRBC/100 WBC (test See_Comment [Automat ed code = 4971734247) message] The system which generated this result transmitted reference range : 0.0 - 10.0 /100 WBCs. The refer ence range was not u sed to interpret th is result as normal/abnormal . NRBC x10^3 (test code <0.01 See_Comment [Auto mated = 3946837345) message] The s ystem which generated this result transmitted reference range : 10*3/?L. The reference range was not used to interpret this result as normal/abnormal . GRAN MAT (NEUT) % 79.0 % (test code = 770-8) IMM GRAN % (test code 0.50 % = 6267414289) LYMPH % (test code = 7.3 % 736-9) MONO % (test code = 9.1 % 5905-5) EOS % (test code = 3.8 % 713-8) BASO % (test code = 0.3 % 706-2) GRAN MAT x10^3(ANC) 6.93 10*3/uL 1.99-6.95 (test code = 7099243601) IMM GRAN x10^3 (test 0.04 10*3/uL 0-0.06 code = 8879936034) LYMPH x10^3 (test code 0.64 10*3/uL 1.09-3.23 L = 731-0) MONO x10^3 (test code 0.80 10*3/uL 0.36-1.02 = 742-7) EOS x10^3 (test code = 0.33 10*3/uL 0.06-0.53 711-2) BASO x10^3 (test code 0.03 10*3/uL 0.01-0.09 = 704-7) Lab Interpretation Abnormal (test code = 76615-9) [facility] WITH LJGR1408-87-61 22:53:00 Test Item Value Reference Range Interpretation Comments WBC (test code = See_Comment [Automated 7690-2) message] The sy stem which generated this result transmitted reference range : 4.20 - 10.70 10*3/?L. The reference range was not used to interpret this result as normal/abnormal . RBC (test code = See_Comment L [Automated 529-8) message] The sy stem which generated this [...] RDW-SD (test code = 46.1 fL 38.5-51.6 17418-4) RDW-CV (test code = 13.9 % 12.1-15.4 788-0) PLT (test code = See_Comment [Automated 777-3) message] The sy stem which generated this result transmitted reference range : 150 - 328 10*3/ ?L. The reference r za was not used to interpret this result as normal/abnormal . MPV (test code = 8.7 fL 9.8-13 L 68799-8) NRBC/100 WBC (test See_Comment [Automat ed code = 3145784437) message] The system which generated this result transmitted reference range : 0.0 - 10.0 /100 WBCs. The refer ence range was not u sed to interpret th is result as normal/abnormal . NRBC x10^3 (test code <0.01 See_Comment [Auto mated = 0229726130) message] The s ystem which generated this result transmitted reference range : 10*3/?L. The reference range was not used to interpret this result as normal/abnormal . GRAN MAT (NEUT) % 79.0 % (test code = 770-8) IMM GRAN % (test code 0.50 % = 5275378903) LYMPH % (test code = 7.3 % 736-9) MONO % (test code = 9.1 % 5905-5) EOS % (test code = 3.8 % 713-8) BASO % (test code = 0.3 % 706-2) GRAN MAT x10^3(ANC) 6.93 10*3/uL 1.99-6.95 (test code = 9243485852) IMM GRAN x10^3 (test 0.04 10*3/uL 0-0.06 code = 3067894411) LYMPH x10^3 (test code 0.64 10*3/uL 1.09-3.23 L = 731-0) MONO x10^3 (test code 0.80 10*3/uL 0.36-1.02 = 742-7) EOS x10^3 (test code = 0.33 10*3/uL 0.06-0.53 711-2) BASO x10^3 (test code 0.03 10*3/uL 0.01-0.09 = 704-7) Lab Interpretation Abnormal (test code = 36443-4) [facility], LOWER WITHOUT CONTRAST, RIGHT 2017-01-25 [...] Jorge Kumar Verified Date/Time:01/25/2017 19:47:23 Reading Location: [address] Reading Room RAD, HIP, 2 VIEWS, KWJQR0229-30-13 19:11:00Reason for exam:->FALLReason for exam:->HIP PAINShould this be performed at the bedside?->NoFINAL REPORT CLINICAL HISTORY: Trauma and pain COMPARISON: None. FINDINGS: Frontal view of the pelvis and a lateral view of the right hip are submitted. There is no acute fracture, malalignment or destructive bony lesion. Surgical clips overlie the right lower abdomen. Signed: Jorge Kumar Verified Date/Time: 01/25/2017 19:11:49 Reading Location: [address] Reading Room enqmpjra0421-42-13 16:35:25185Xiqhfopu SpngjpbCgbijiqyw1455-95-63 16:35:43423Fmvoffpg XwupvowGnkwbpxxe0050-47-16 16:35:0032[facility] Bpgpkupmh2451-15-28 16:35:88722Iwchpxck QyvuingFwqmjivqh4153-90-19 16:35:35481 MEQ/LMemorial EtojpzvYllyflumt5523-61-05 16:35:004.3 MEQ/LMemorial Jimmy Ypwyqmszb0059-58-50 16:35:002.5[facility]orial GtqaofiAbtunqlhp1606-72-74 16:35:0029 [facility] IaksjjcYjpakwndm6653-22-76 16:35:00 Test Item Value Reference Range Interpretation Comments BUN/CREAT (test code = BUN/CREAT) 12 1 25 [facility] IyjeudgXecsfbtlx2808-13-84 16:35:004.2[facility] HermannChemistry 2014-02-18 16:35:008.9[facility] MetaotvAfhmkwzkg8664-70-54 16:35:0036[facility] YpvwcnmXkrgqlmnt8793-28-52 16:35:0025[facility] UlghrvaRiqmcgjuu6398-44-27 16:35:70969Dlhpuqwe DkaijfoTwrhmgjgd9962-32-35 16:35:001.380[facility] Pshpfhyvl6135-85-03 16:35:002.00[facility] GeygnxqGiiviltalt6904-16-16 16:35:00 13.9[facility]orial PsqzozfPnlweokjjx1439-65-97 16:35:0041.4[facility] HermannHematology 2014-02-18 16:35:28769 K/CMMMemorial ZhgtjtlXxfivffa6058-40-88 16:35:00Non ReactiveMemorial PgtmwtcRswgnpthz0166-63-48 16:35:82146Gjdlbtxo HermannChemistry 2014-02-18 16:35:13536Aujgkwjt QrfaejuRuubhqhsh9119-14-67 16:35:0032[facility] YzficwzBecuelpjl5513-07-41 16:35:58383Nufymzjf JhlclfhKqhwprcbf6101-25-10 16:35:10753 MEQ/L[facility] AnyedakTqqmxarqn7207-67-81 16:35:004.3 MEQ/LMem[facility] HmesvzjDsvrixphb4502-97-07 16:35:002.5[facility] IueiblfTopyqpwkz5005-78-55 16:35:0029[facility] PhxcuixZbaacbekt4132-05-24 16:35:00 Test Item Value Reference Range Interpretation Comments BUN/CREAT (test code = BUN/CREAT) 12 25 [facility] VonjigvMkmfwpsku7302-79-67 16:35:004.2[facility] HermannChemistry 2014-02-18 16:35:008.9[facility] KkqmegzLsbawqrzs6520-62-44 16:35:0036[facility] GfhtevwEjyadrach4502-32-43 16:35:0025[facility] IlomxfvNufssmzdb8640-14-03 16:35:22349Ufzpvcrk VabbrzhUsdnigwpn9398-94-16 16:35:001.380[facility] Hbesxcdea2868-23-90 16:35:002.00[facility] LkhdgimFwmmaoalaz1968-29-50 16:35:00 13.9[facility] XysxchzZhffvmpkcm6510-08-55 16:35:0041.4[facility] HermannHematology 2014-02-18 16:35:53567 K/CMMMemorial WdsvpzzTswmlhlw3165-30-20 16:35:00Non ReactiveMemorial YnxvvyyPtbbhbedt6316-53-70 20:45:67559Ilzyhehm HermannChemistry 2013-01-23 20:45:76559Rudhwvjg ArcnacfLstzbdimr7709-62-83 20:45:0023[facility] WqyrdfyUbttferzi9571-23-65 20:45:92751Pimxoetz CwsdvwqDkxawqcjx1143-39-60 20:45:42709Grjgezxc SvxnjioVinmswnao6093-42-44 20:45:0023[facility] Jimmy Mnxwhqaoi8536-47-27 20:45:00See Note mg/dLMemorial IzjlyejBbnubaalx2176-62-65 20:45:77965 MEQ/LMemorial AuuxpvdDdteimfnl2081-67-47 20:45:004.5 MEQ/LMemorial JzmiroyGebuiznmx6516-96-03 20:45:001.8[facility] JvfhyjhVftvbnyhc5448-61-00 20:45:0030[facility] TgdzixmVdoohxwwi1150-15-55 20:45:00 Test Item Value Reference Range Interpretation Comments BUN/CREAT (test code = BUN/CREAT) 17 08-05 [facility] PomrwhuFvywtterc1738-76-29 20:45:004.2[facility] 2013-01-23 20:45:009.3[facility] HowtdaeHhsfiamop9841-69-28 20:45:0031[facility] LxkzwalZjcpipqef7954-31-01 20:45:0020[facility] LzldjilHbldhczdo9815-31-11 20:45:07321Rofukwel CoicfpuXsukpxmry9952-24-84 20:45:001.390[facility] Xiiaqyxjc6652-88-03 20:45:001.33[facility] SnxnesdWnlxfabjc4369-71-10 20:45:72401 [facility] QzdsndbHblnmwhzm1714-59-96 20:45:58235Diihfgrw HermannChemistry 2013-01-23 20:45:0023[facility] NnlvfriXsvfhwdcs0240-87-11 20:45:79011Hznshivv KzwkyenRygmhjkgl2380-19-67 20:45:47376Ygyimctu KszgirdGvcfzptoc4520-96-46 20:45:0023[facility] CkmfcpyUgzjcwoky0338-77-51 20:45:00See Note mg/dLMemorial KmevpamTfxxrauec4726-84-34 20:45:31494 MEQ/LMemorial CluhpseKyjuxtbwa0681-82-60 20:45:004.5 MEQ/LMemorial WrhfteyKtfawazbu7615-81-17 20:45:001.8[facility] Zzdifecdb4884-43-48 20:45:0030[facility] XbujpraWmwngypbp7803-72-60 20:45:00 Test Item Value Reference Range Interpretation Comments BUN/CREAT (test code = BUN/CREAT) 17 08-05 [facility] PmcfxwuOqynxlxba5694-67-43 20:45:004.2[facility]ann[facility] 2013-01-23 20:45:009.3[facility] NndqzjbCxujfyrmr8787-56-70 20:45:0031[facility] EnntpwyMpuhxmyse6457-38-40 20:45:0020[facility] HdfkjzjYufzlcsvb3629-45-92 20:45:78223Mbaawspn FvlkdxjMupmostaz3171-68-07 20:45:001.390[facility] Olgmpzetq3516-46-82 20:45:001.33[facility] ShcsoynAlsdnyrye2218-75-61 15:12:571.57 [facility] PdzowfzCfsfckttg4657-94-98 15:12:571.57[facility]ann[facility] 2012-04-02 15:12:571.57[facility] RzhlkntItcwpahty0022-66-73 15:12:571.57[facility]"
[2021-02-20 16:10] LABS: Absolute Lymphocytes (CBC) 0.8 K/uL (0.7-4.9); Hematocrit 37.1 % (39.6-49.0); Lymphocytes % 8.4 % (15.3-44.8); MPV 7.3 fL (7.6-11.3)
[2021-02-20 16:12] LABS: Protime INR 1.09
[2021-02-20 16:21] LABS: Urine Blood Negative (Negative); Urine Glucose Trace (Negative); Urine Protein 3+ (Negative); Urine pH 6.5 (5.0-7.0)
--- NOTE | 2021-02-20 16:25 | RAD REPORT ---
EXAM DESCRIPTION: RAD - Chest Single View - 02/20/2021 4:18 pm CLINICAL HISTORY: Weakness Chest pain. COMPARISON: Chest Single View dated 02/09/2021; Chest Single View dated 01/06/2021; Chest Single Vie w dated 10/01/2020; Chest Single View dated 03/17/2019 FINDINGS: Portable technique limits examination quality. The lungs are grossly clear. The heart is mildly enlarged in size. No displaced fractures. IMPRESSION: No acute intrathoracic process suspected.
--- NOTE | 2021-02-20 16:26 | RAD REPORT ---
EXAM DESCRIPTION: CT - Head Brain Wo Cont - 02/20/2021 4:20 pm CLINICAL HISTORY: WEAKNESS Headache, drowsiness COMPARISON: Head Brain Wo Cont dated 02/09/2021; Head Brain Wo Cont dated 03/17/2019 TECHNIQUE: All CT scans are performed using dose optimization technique as appropriate and may inclu de automated exposure control or mA/KV adjustment according to patient size. FINDINGS: No intracranial hemorrhage, hydrocephalus or extra-axial fluid collection.Mild generalized brain atrophy is present with moderate periventricular and deep white matter chronic microvascular i schemic changes.No areas of brain edema or evidence of midline shift. The paranasal sinuses and mastoids are clear. The calvarium is intact. IMPRESSION: No acute intracranial abnormality.
[2021-02-20 16:30] LABS: ALT/SGPT 27 U/L (12-78); AST/SGOT 18 U/L (15-37); Albumin 3.7 g/dL (3.4-5.0); Alkaline Phosphatase 111 U/L (45-117); BUN Blood Urea Nitrogen 23 mg/dL (7-18); Bicarbonate 26 mmol/L (21-32); Bilirubin Direct 0.2 mg/dL (0-0.2); Bilirubin Total 0.7 mg/dL (0.2-1.0); Glucose Level 105 mg/dL (74-106); Magnesium 2.2 mg/dL (1.8-2.4); NT PRO-BNP 9986 pg/mL (<450); Potassium 3.5 mmol/L (3.5-5.1); Protein, Total 7.9 g/dL (6.4-8.2); Sodium Level 137 mmol/L (136-145); Troponin (Emerg Dept Use Only) < 0.02 ng/mL (0.0-0.045)
--- NOTE | 2021-02-20 17:33 | EDPHYS ---
Physician Documentation [facility] Name: Amando Grossman Age: 75 yrs Sex: Male : 1945 Arrival Date: 02/20/2021 Time: 15:26 Bed 30 Private MD: ED Physician Zion Cueva HPI: 02/20 15:46 This 75 yrs old Male presents to ER via EMS with complaints of Weakness. pm1 15:46 The patient presents to the emergency department with weakness of the entire body, pm1 generalized weakness. 15:46 Onset: The symptoms/episode began/occurred 1 week(s) ago, generalized weakness for the pm1 past 1 week. Patient missed his Saturday session and Saturday session, today, due to feeling weak prior to dialysis. Context: occurred while the patient was at the dialysis center about to get dialysis. Associated signs and symptoms: Pertinent positives: occasional diarrhea which he reports is at his baseline, Pertinent negatives: dizziness, fever, headache, nausea, vomiting, chest pain, shortness of breath. Severity of symptoms: in the emergency department the symptoms have resolved and did so just prior to arrival, Pain is currently a 0 / 10. Patient's baseline: Neuro: alert and fully oriented, Motor: no deficits, Ambulation: walks with assist only, Right AKA. Current symptoms: Currently, the patient is not experiencing any symptoms. The patient has not recently seen a physician, at dialysis center prior to arrival. - Immunization history:: Adult Immunizations up to date, Client reports receiving the 2nd dose of the Covid vaccine, Last tetanus immunization: . - Social history:: Smoking status: unknown. ROS: 15:46 Constitutional: Negative for fever, chills, and weight loss, Neck: Negative for injury, pm1 pain, and swelling, Cardiovascular: Negative for chest pain, palpitations, and edema, Respiratory: Negative for shortness of breath, cough, wheezing, and pleuritic chest pain. 15:46 Back: Negative for injury and pain, : Negative for injury, bleeding, discharge, and swelling, MS/Extremity: Negative for injury and deformity, Skin: Negative for injury, rash, and discoloration. 15:46 Abdomen/GI: Positive for diarrhea, Negative for abdominal pain, nausea and vomiting, hematemesis, black/tarry stool. 15:46 Neuro: Positive for generalized weakness, Negative for dizziness, headache, numbness, tingling. Exam: 15:46 Constitutional: This is a well developed, well nourished patient who is awake, alert, pm1 and in no acute distress. Head/Face: Normocephalic, atraumatic. 15:46 Back: No spinal tenderness. No costovertebral tenderness. Full range of motion. Skin: Warm, dry with normal turgor. Normal color with no rashes, no lesions, and no evidence of cellulitis. MS/ Extremity: Pulses equal, no cyanosis. Neurovascular intact. Full, normal range of motion. 15:46 Eyes: Exam is negative for acute changes, Periorbital structures: appear normal, Extraocular movements: intact throughout, Conjunctiva: no acute changes, no injection, Sclera: no acute changes, icterus, is not appreciated. 15:46 ENT: Exam is negative for acute changes, Mouth: no acute changes, Lips: normal, moist, Oral mucosa: normal, pink and intact, moist, Voice: no acute changes. 15:46 Cardiovascular: Exam negative for acute changes, Rate: normal, Rhythm: regular, Pulses: no pulse deficits are appreciated, Heart sounds: normal. 15:46 Respiratory: Exam negative for acute changes, respiratory distress, shortness of breath, Breath sounds: are clear throughout. 15:46 Neuro: Exam negative for acute changes, Orientation: is normal, Mentation: is normal, Motor: is normal, moves all fours, Sensation: no obvious gross deficits. Vital Signs: 15:28 BP 197 / 97; Pulse 67; Resp 16; Temp 96.9; Pulse Ox 100% on R/A; ic1 16:33 BP 179 / 72; Pulse 72; Resp 18; Pulse Ox 100% on R/A; ic1 17:33 Pulse 67; Resp 18; Pulse Ox 99% on R/A; ic1 NIH Stroke Scale Scores: 15:34 NIHSS Score: 0 ic1 MDM: 15:38 Patient medically screened. pm1 16:38 Data reviewed: vital signs. Data interpreted: Pulse oximetry: on room air is 99 %. pm1 Interpretation: normal. 17:29 Counseling: I had a detailed discussion with the patient and/or guardian regarding: the pm1 historical points, exam findings, and any diagnostic results supporting the discharge/admit diagnosis, lab results, radiology results, the need for outpatient follow up, to return to the emergency department if symptoms worsen or persist or if there are any questions or concerns that arise at home. 21:10 ED course: Called to update patient on UDS report. No answer. Patient was concerned pm1 about prior positive cannabis positive result in the past from CBD usage. Patient has stopped using the OTC drug since last ER visit. 02/20 15:39 Order name: Basic Metabolic Panel; Complete Time: 16:37 pm02/20 15:39 Order name: CBC with Diff; Complete Time: 16:25 pm02/20 15:39 Order name: LFT's; Complete Time: 16:37 pm1 02/20 15:39 Order name: Magnesium; Complete Time: 16:37 pm02/20 15:39 Order name: NT PRO-BNP; Complete Time: 16:37 pm02/20 15:39 Order name: PT-INR; Complete Time: 16:25 pm1 02/20 15:39 Order name: Troponin (emerg Dept Use Only); Complete Time: 16:37 pm02/20 15:39 Order name: XRAY Chest (1 view); Complete Time: 16:37 pm1 02/20 15:39 Order name: EKG; Complete Time: 15:40 pm1 02/20 15:39 Order name: Cardiac monitoring; Complete Time: 15:40 pm02/20 15:39 Order name: EKG - Nurse/Tech; Complete Time: 16:07 pm1 02/20 15:43 Order name: CT Head Brain wo Cont; Complete Time: 16:37 pm1 02/20 16:21 Order name: Urine Dipstick-Ancillary; Complete Time: 16:25 EDMS 02/20 16:37 Order name: UDS; Complete Time: 21:09 pm1 02/20 15:39 Order name: IV Saline Lock; Complete Time: 15:40 pm1 02/20 15:39 Order name: Labs collected and sent; Complete Time: 15:56 pm02/20 15:39 Order name: O2 Per Protocol; Complete Time: 15:41 pm1 02/20 15:39 Order name: O2 Sat Monitoring; Complete Time: 15:41 pm1 02/20 16:05 Order name: Urine Dipstick-Ancillary (obtain specimen); Complete Time: 16:21 pm1 Administered Medications: No medications were administered Disposition: 02/21 07:03 Co-signature as Attending Physician, Zion Cueva MD I agree with the assessment and rn plan of care. Attestation: The patient's history, exam findings, diagnostics, and a summary of any interventions or procedures was reviewed in detail with Kian Abarca NP. Disposition Summary: 02/20/21 17:32 Discharge Ordered Location: Home pm1 Problem: new pm1 Symptoms: have improved pm1 Condition: Stable pm1 Diagnosis - Weakness pm1 - Essential (primary) hypertension pm1 Followup: pm1 - With: Emergency Department - When: As needed - Reason: Worsening of condition Followup: pm1 - With: Private Physician - When: 2 - 3 days - Reason: Recheck today's complaints, Continuance of care, Re-evaluation by your physician Discharge Instructions: - Discharge Summary Sheet pm1 - Hypertension, Adult pm1 - Weakness pm1 Forms: - Medication Reconciliation Form pm1 - Thank You Letter pm1 - Antibiotic Education pm1 - Prescription Opioid Use pm1 NIH Stroke Scale - NIH Stroke Score Date: 02/20/2021 Time: 15:34 Total Score = 0 1a. Level of Consciousness (LOC) - 0(Alert) 1b. Level of Consciousness (LOC) (Month \T\ Age) - 0(Both) 1c. LOC Commands (Open \T\ Closes Eyes/Director Audience Marketing) - 0(Both) 2. Best Gaze (Lateral Gaze Paresis) - 0(Normal) 3. Visual Field Loss - 0(No visual loss) 4. Facial Palsy - 0(Normal) 5a. Left Arm: Motor (10-second hold) - 0(No drift) 5b. Right Arm: Motor (10-second hold) - 0(No drift) 6a. Left Leg: Motor (5-second hold - always test supine) - 0(No drift) 6b. Right Leg: Motor (5-second hold - always test supine) - 0(No drift) 7. Limb Ataxia (finger/nose \T\ heel/mandel - test with eyes open) - 0(Absent) 8. Sensory Loss (pinprick arms/legs/face) - 0(Normal) 9. Best Language: Aphasia (description/naming/reading) - 0(No aphasia) 10. Dysarthria (speech clarity - read or repeat words) - 0(Normal) 11. Extinction and Inattention (visual/tactile/auditory/spatial/personal) - 0(No abnormality) Initials: ic1 Signatures: Dispatcher [employer] EDZion Bain MD MD rn Kian Abarca, JOSE SENIOR PAYROLL MANAGER pm1 Nancy Van, RN RN ic1
--- NOTE | 2021-02-20 17:33 | ER ---
Nurse's Notes [facility] Name: Amando Grossman Age: 75 yrs Sex: Male : 1945 Arrival Date: 02/20/2021 Time: 15:26 Bed 30 Private MD: Diagnosis: Weakness;Essential (primary) hypertension Presentation: 02/20 15:28 Chief complaint: EMS states: Per EMS pt was about to receive dialysis when he started ic1 to feel weak. Pt states he receives dialysis on Saturday and Fridays, but was not able to get the last two due to feeling weaker than usual. Pt denies sob, cp or headache. Coronavirus screen: Vaccine status: Patient reports receiving the 2nd dose of the covid vaccine. Client denies travel out of the [place] in the last 14 days. At this time, the client does not indicate any symptoms associated with coronavirus-19. Ebola Screen: Patient negative for fever greater than or equal to 101.5 degrees Fahrenheit, and additional compatible Ebola Virus Disease symptoms Patient denies exposure to infectious person. No symptoms or risks identified at this time. No acute neurological deficit is noted. Initial Sepsis Screen: Does the patient meet any 2 criteria? No. Patient's initial sepsis screen is negative. Does the patient have a suspected source of infection? No. Patient's initial sepsis screen is negative. Risk Assessment: Do you want to hurt yourself or someone else? Patient reports no desire to harm self or others. Onset of symptoms is unknown. 15:28 Method Of Arrival: EMS ic1 15:28 Acuity: KELLY 3 ic1 Triage Assessment: 15:28 General: Appears in no apparent distress. comfortable, Behavior is calm, cooperative. ic1 Pain: Denies pain. EENT: No deficits noted. Neuro: Reports weakness Denies blurred vision dizziness, difficulty swallowing, numbness headache. Cardiovascular: No deficits noted. Respiratory: No deficits noted. GI: No deficits noted. : No deficits noted. Derm: No deficits noted. Musculoskeletal: No deficits noted. - Immunization history:: Adult Immunizations up to date, Client reports receiving the 2nd dose of the Covid vaccine, Last tetanus immunization: . - Social history:: Smoking status: unknown. Screenin:34 Abuse screen: Denies threats or abuse. Denies injuries from another. Nutritional ic1 screening: No deficits noted. Tuberculosis screening: No symptoms or risk factors identified. Fall Risk None identified. Exposure risk/Travel Screening: None identified. Assessment: 15:34 VAN Scoring: Arm Drift: Patients demonstrates NO arm weakness. Patient is VAN Negative. ic1 Visual Disturbance: No visual disturbance noted. Aphasia: No aphasia noted. Neglect: No neglect noted. The patient has not been NPO before screening. The patient is currently on the following diet: Reg The patient is alert, and able to follow commands. The patient does not exhibit slurred or garbled speech. The patient is not exhibiting difficulty speaking. The patient is exhibiting difficulty understanding words. The patient is unable to swallow own secretions without drooling or the need for suction. Patient tolerated one teaspoon of water. No drooling, immediate coughing, gurgling, or clearing of the throat was noted. The patient tolerated 90mL of water. No drooling, immediate coughing, gurgling, or clearing of the throat was noted. The patient passed the bedside swallow screening. Oral medications may be given as ordered. Contact Physician for further diet orders. General: Appears in no apparent distress. comfortable, Behavior is calm, cooperative. Pain: Denies pain. Neuro: No deficits noted. Cardiovascular: No deficits noted. Respiratory: No deficits noted. GI: No deficits noted. : No deficits noted. EENT: No deficits noted. Derm: No deficits noted. Musculoskeletal: No deficits noted. Vital Signs: 15:28 BP 197 / 97; Pulse 67; Resp 16; Temp 96.9; Pulse Ox 100% on R/A; ic1 16:33 BP 179 / 72; Pulse 72; Resp 18; Pulse Ox 100% on R/A; ic1 17:33 Pulse 67; Resp 18; Pulse Ox 99% on R/A; ic1 NIH Stroke Scale Scores: 15:34 NIHSS Score: 0 ic1 ED Course: 15:26 Patient arrived in ED. ds1 15:28 Arm band placed on right wrist. ic1 15:31 Kian Abarca NP is PHCP. pm1 15:31 Zion Cueva MD is Attending Physician. pm1 15:33 Triage completed. ic1 15:34 Placed in gown. Bed in low position. Call light in reach. Side rails up X2. ic1 15:34 Inserted saline lock: 20 gauge in right forearm, using aseptic technique. Blood ic1 collected. 15:56 Basic Metabolic Panel Sent. ab2 15:56 CBC with Diff Sent. ab2 15:56 LFT's Sent. ab2 15:56 Magnesium Sent. ab2 15:56 NT PRO-BNP Sent. ab2 15:56 PT-INR Sent. ab2 15:56 Troponin (emerg Dept Use Only) Sent. ab2 16:13 EKG done, by ED staff, reviewed by Kian Abarca NP. mb7 16:18 XRAY Chest (1 view) In Process Unspecified. EDMS 16:20 CT Head Brain wo Cont In Process Unspecified. EDMS 16:33 Door closed. Lights dimmed. Warm blanket given. Pillow given. ic1 17:58 UDS Sent. ic1 Administered Medications: No medications were administered Outcome: 17:32 Discharge ordered by MD. pm1 17:58 Discharged to home ambulatory. ic1 17:58 Condition: stable 17:58 Discharge instructions given to patient, Instructed on discharge instructions, follow up and referral plans. Demonstrated understanding of instructions, follow-up care. 18:07 Patient left the ED. ic1 NIH Stroke Scale - NIH Stroke Score Date: 02/20/2021 Time: 15:34 Total Score = 0 1a. Level of Consciousness (LOC) - 0(Alert) 1b. Level of Consciousness (LOC) (Month \T\ Age) - 0(Both) 1c. LOC Commands (Open \T\ Closes Eyes/Motor Vehicle Light Assembler) - 0(Both) 2. Best Gaze (Lateral Gaze Paresis) - 0(Normal) 3. Visual Field Loss - 0(No visual loss) 4. Facial Palsy - 0(Normal) 5a. Left Arm: Motor (10-second hold) - 0(No drift) 5b. Right Arm: Motor (10-second hold) - 0(No drift) 6a. Left Leg: Motor (5-second hold - always test supine) - 0(No drift) 6b. Right Leg: Motor (5-second hold - always test supine) - 0(No drift) 7. Limb Ataxia (finger/nose \T\ heel/mandel - test with eyes open) - 0(Absent) 8. Sensory Loss (pinprick arms/legs/face) - 0(Normal) 9. Best Language: Aphasia (description/naming/reading) - 0(No aphasia) 10. Dysarthria (speech clarity - read or repeat words) - 0(Normal) 11. Extinction and Inattention (visual/tactile/auditory/spatial/personal) - 0(No abnormality) Initials: ic1 Signatures: Dispatcher [employer] Aurora Pascual ds1 Kian Abarca, INVESTMENT CONSULTANT INVESTMENT CONSULTANT pm1 Haley Eason mb7 Nancy Van RN RN ic1 Jeremias Lee2
[2021-02-20 18:15] VITALS: BP 179/72; TEMP 96.9
[2021-02-20 18:16] VITALS: O2SAT 99
[2021-02-20 18:19] LABS: Barbiturates NEGATIVE (NEGATIVE); Benzodiazepines NEGATIVE (NEGATIVE); Cocaine NEGATIVE (NEGATIVE); METHAMPHETAM NEGATIVE (NEGATIVE); Methadone NEGATIVE (NEGATIVE); Opiates NEGATIVE (NEGATIVE); Phencyclidine NEGATIVE (NEGATIVE); THC Cannibis NEGATIVE (NEGATIVE)
--- NOTE | 2021-02-22 07:51 | EKG ---
Test Date: 2021-02-20 Test Time: 16:07:28 Wheel Molder: SB MEASUREMENT RESULTS: Intervals: Rate: 65 IA: 212 QRSD: 114 QT: 480 QTc: 499 O'Brien: P: 63 IA: 212 QRS: 84 T: 62 INTERPRETIVE STATEMENTS: Sinus rhythm with sinus arrhythmia with 1st degree AV block Incomplete right bundle branch block Prolonged QT Abnormal ECG Compared to ECG 02/09/2021 20:41:03 Incomplete right bundle-branch block now present Prolonged QT interval now present Sinus bradycardia no longer present Electronically Signed On 02-22-21 07:46:07 SECONDARY EDUCATION PROFESSOR by Arnaldo Diaz
== END 2021-02-20 18:07 | disposition home or self-care (01) ==
LOC: ER 15:18
DX: R53.1 Weakness (principal); I10 Essential (primary) hypertension
CPT/HCPCS: 36415; 70450; 71045; 80048; 80076; 80307; 81003; 83735; 83880; 84484; 85025; 85610; 93005; 99284

== ENCOUNTER 2021-05-16 11:32 | Emergency (ER) | payer OTHER, BC ==
--- OUTSIDE RECORDS SUMMARY | 2021-05-16 11:39 | XMS REPORT | Continuity of Care Document ---
:1945 Author Organization [facility] t Address [address] [place] [address] Care Team Providers Name Role Phone Jerrell Pierce MD Primary Care Physician [id number] Attending Clinician Unavailable SHARON DIAZ Attending Clinician Unavailable Yaritza Curtis Attending Clinician Unavailable Provider Attending Clinician Unavailable Brooke Espino Attending Clinician Unavailable Chaya Allison Attending Clinician Unavailable Rosa Shaffer MD Attending Clinician PETER Attending Clinician Unavailable PETER Attending Clinician Unavailable Archie Kerr MD Attending Clinician Sugar SANTOS Attending Clinician Unavailable Jignesh Arvizu MD Attending Clinician Obi King DO Attending Clinician Dickson MOSQUERA Attending Clinician Ame Attending Clinician Bear Graham MD Attending Clinician Pierre York MD Attending Clinician Lisa Pedraza Attending Clinician LISA HENSON Attending Clinician Unavailable Sahil Mosley MD Attending Clinician [id number] Admitting Clinician Unavailable SHARON DIAZ Admitting Clinician Unavailable Yaritza Curtis Admitting Clinician Unavailable CHRISTO, L Admitting Clinician Unavailable Brooke Espino Admitting Clinician Unavailable Physician, Primary or Family Admitting Clinician UnavailChaya Tovar Admitting Clinician Unavailable JOSESITO Admitting Clinician Unavailable CHRISTINE Admitting Clinician Unavailable Payers Payer Name Policy Type Policy Effective Date Expiration Date Sour ce Number JOHNNY TURNER [id number] BCTX BCTI [id number] MEDICAREMEDICARE PART [id number] 2010 [facility] A AND 00:00:00 [facility] [id number] [place] [id number] 2010 Meth odist MEDICARE 4 00:00:00 Hospital [id number] 410-PresentCom mercial Problems Condition Condition Condition Status Onset Resolution Last Treating Co mments Source Name Details Category Date Date Treatment Clinician Date 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 Stable on HD. 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 Stable symptoms on current regimen which are separate from his recent chest pain. 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 Asymtomat ic on the current level of activity and medical regimen.E cho ordered. ESRD (end ESRD (end Disease Active Overview: Methodi stage stage 2-[address] renal renal 00:00: g of this Hospita disease) disease) 00 note l might be different from the original. Added automatic ally from request for surgery [id number] End stage End stage Disease Active Met [facility]odi renal renal 1 st disease on disease on 00:00: Ho spita dialysis dialysis 00 l Impaired Impaired Disease Active 2018-02 [facility] fasting fasting 117 [place] glucose glucose 00:00: of 00 Medicin e Urinary Urinary Disease Active 2018-02 [facility] frequency frequency 1-17 Natan ege 00:00: of 00 Medicin e Chronic Chronic Disease Active 2018-02 [facility] disease disease 0-09 st anemia anemia 00:00: Hospita 00 l Chronic Chronic Disease Active 2018-02 [facility] kidney kidney 0-09 st disease, disease, 00:00: Hospit a stage IV stage IV 00 l (severe) (severe) Arthritis Arthritis Disease Active 2017-02 [facility] of knee, of knee, 2-11 Colleg e left left 00:00: of 00 Medicin e 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 [place] knee knee 211 [place] replacemen replacemen 00:00: of t, t, 00 Medicin bilateral bilateral e Anemia, Anemia, Disease Active 2017-02 [facility] unspecifie unspecifie 1-13 st d d 00:00: Hospita 00 l Chronic Chronic Disease Active [facility] renal renal 6-11 [place] disease, disease, 00:00: of stage 4, stage 4, 00 Medici n severely severely e decreased decreased glomerular glomerular filtration filtration rate (GFR) rate (GFR) between between 15-29 15-29 mL/min/1.7 mL/min/1.7 3 square 3 square meter meter (HCCode) (HCCode) Atheroscle Atheroscle Disease Active Overview : [facility] rosis of rosis of 09-23 Formattin Col lege [place] 00:00: g of this of coronary coronary 00 note Medici n artery of artery of might be e [place] ak[place] different heart heart from the without without original. angina angina Long pectoris pectoris standing disease, stable with current RxLast Assessmen t & Plan: Formattin g of this note might be different from the original. Asymtomat ic on the current level of activity and medical regimen.L exiscan ordered. Essential Essential Disease Active Overview: [facility] hypertensi hypertensi 09-23 [facility] on on 00:00: g of this of note Medicin might be e different from the original. Stable and sometimes BP drops too muchLast Assessmen t & Plan: Formattin g of this note might be different from the original. Controlle d on the current regimen. Heart Heart Disease Active Overview: [facility] murmur murmur 09-23 A [place] 00:00: systolic of 00 murmur Medicin Grade 2/6 e over LSB , not radiating in any direction but audible over most of [place] l areaLast Assessmen t & Plan: Continue current Rx and control all risk factors including weight S/P S/P Disease Active Overview: [facility] angioplast angioplast 09-23 In 2009 C ollege y with y with 00:00: he had A of stent stent 00 stent Medicin deployed e in proximal RCA andCx had only Angioplas ty with good resultsLa Assessmen t & Plan: Continue current Rx and control all risk factors including weight H/O H/O Disease Active Overview: [facility] unilateral unilateral 09-23 He had Co llege nephrectom nephrectom 00:00: nephrecto of y y 00 my long Medicin time ago e and the other kidney is weakLast Assessmen t & Plan: Monitor closely Rx and control all risk factors including weight Dyslipidem Dyslipidem Disease Active Overview : [facility] ia ia 09-23 [facility] 00:00: g of this of note Medicin might be e different from the original. Last year they were not perfectCu rrent Labs pendingLa st Assessmen t & Plan: Formattin g of this note might be different from the original. Controlle d on the current regimen. 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 Active 02/18/2014 Condition 5 Medical Group HYPERTROPH Condition Active 2012-022014-02-18 Memoria Y PROSTATE 2-13 10:35:00 l W/UR OBST 00:00: [place] & OTH LUTS HYPERTROPH 00 Y PROSTATE [...] Active 2014-02-18 Mem oria 10:35:00 l CAD [place] Active Condition 02/18/2014 Medical Group CHRONIC Condition Active 2014-02-18 Me moria KIDNEY 10:35:00 l DISEASE CHRONIC [place] n STAGE III KIDNEY (MODERATE) DISEASE STAGE III (MODERATE) Active Condition 02/18/2014 Medical Group HYPERTENSI Condition Active 2014-02-18 Memoria ON 10:35:00 madhu Marquez HYPERTENSI ON Active Condition 02/18/2014 Medical Group Allergies, Adverse Reactions, Alerts Allergy Allergy Status Severity Reaction(s) Onset Inactive Treating Comm ents Source Name Type Date Date Clinician Iodine FA Active MO 2020-0 [facility] and 05-13 Clear Iodide 00:00: Smith Containi 00 [facility] shellfis FA Active SV 0 [facility] h 05-13 Clear derived 00:00: Smith 00 [facility] PINICILL DA Active MO ITCHING [facility] IN 05-13 Clear 00:00: Smith 00 [facility] No Known DA Active U [facility] Allergie 05-13 [place] s 00:00: d 00 [facility] No Known DA Active U [facility] Allergie 05-13 [place] s 00:00: d 00 [facility] Iodine FA Active MO DIARRHEA [facility] and 05-13 [place] Iodide 00:00: d Containi 00 [facility] Produc shellfis FA Active SV SWELLING [facility] h 05-13 [place] derived 00:00: d 00 [facility] Iodine Propensi Active Rash 2020-0 Univers ty to 9-30 ity of adverse 00:00: [place] reaction 00 [facility] Penicill Propensi Active Anaphylaxis 2020-0 U nivers ins ty to 9-30 ity of adverse 00:00: [place] reaction 00 [facility] IODINE DRUG Active Rash 2020-0 Univers INGREDI 9-30 ity of 00:00: [place] 00 [facility] PENICILL Drug Active Anaphylaxis 2020-0 Uni vers INS Class 9-30 ity of 00:00: [place] 00 [facility] SHELLFIS DRUG Active Diarrhea 2020-0 Univer s H INGREDI 9-30 ity of DERIVED 00:00: [place] 00 [facility] Shellfis Propensi Active Nausea 2020-0 Univer s h ty to and/or 9-30 ity of Derived adverse Vomiting 00:00: [place] reaction 00 [facility] Penicill Propensi Active 2017-02 [facility] ins ty to 2-10 College adverse 00:00: of reaction 00 Medicin s to e drug Eicosape Propensi Active [facility] 8-13 [facility] Acid adverse 00:00: Medical reaction 00 Center s Fish-Polo Propensi Active Moderate 0 [facility] ived ty to 8-13 College Products adverse 00:00: of reaction 00 Medicin s to e drug Iodine Propensi Active Moderate 2017-0 [facility] ty to 8-13 College adverse 00:00: of reaction 00 Medicin s to e drug Shellfis Propensi Active Nausea And 2015-02 Me [...] 00 Center Products s PCN PCN Active Memoria l Jimmy IODINE IODINE Active Memoria l Jimmy Family History Family Member Diagnosis Comments Start Date Stop Date Source Natural father Heart disease [facility] Natural mother COPD [facility] Social History Social Habit Start Date Stop Date Quantity Comments Source Exposure to Unable to assess Univers ity of SARS-CoV-2 [facility] Alcohol intake 2021-05-15 2021-05-15 Current [facility] Col lege of 00:00:00 00:00:00 non-drinker of Medicine alcohol (finding) Tobacco use and 2019-11-19 2019-11-19 Never used [facility] llege of exposure 00:00:00 00:00:00 Medicine Sex [birth year] [facility] Co llege of 00:00:00 00:00:00 Medicine Smoking Status Start Date Stop Date Source Never smoked tobacco [facility] Natan ege of Medicine Unknown if ever smoked [facility] Medications Ordered Filled Start Stop Current Ordering Indication Dosage Frequency Signature Comments Components Source Medication Medication Date Date Medication? Clinician (SIG) Name Name gabapentin No 100mg Q.5D Take 100 M ethodi (NEURONTIN) 03-26- mg by st 100 mg 17:35: 00:00 mouth 2 Hospita capsule 37 :00 (two) l times a day. Take 2 capsules (total of 200 mg) in the evening sulfamethox 2020- No 800mg QD Take 800 Methodi azole/trime 03-26- mg by st thoprim 17:35: 00:00 mouth Hospita (BACTRIM 37 :00 daily. l ORAL) zolpidem 2020- No 10mg QD Take 10 mg Me thodi (AMBIEN) 10 03-26-[address] mg tablet 17:35: 00:00 nightly. Hos imelda 37 :00 l aspirin 2020- No 81mg QD Take 81 mg Met hodi (ECOTRIN) 03-[address] 81 MG 17:35: 00:00 daily. Hospita enteric 37 :00 l coated tablet traZODone 2020- No 100mg QD Take 100 Me thodi (DESYREL) 03-26- mg by st 100 MG 17:35: 00:00 mouth Hospita tablet 37 :00 nightly. l colesevelam Yes Take by Met hodi (WELCHOL) -[address] 3.75 gram 17:35: Welchol Hospi ta powder in 31 (ONLY) l packet Take 2 - 3.75 gram packets per day after AM & PM FLUTICASONE Yes Q.5D into each M ethodi PROPIONATE -[address] NASL 17:35: (two) Hospita 31 times a l day. [place] twice daily diphenhydrA Yes 25mg Take 25 [...] er 31 (two) l (PRESERVISI times a . ORAL) metoprolol 0 2020- No 25mg Q.5D Take 1 Meth herminia tartrate 12 03-15 tablet (25 st (LOPRESSOR) 00:00: 04:59 mg total) Hospita 25 mg 00 :00 by mouth 2 l tablet (two) times a day for 30 days. gabapentin 0 2020- No 300mg QD Take 1 Met hodi (NEURONTIN) 2-12 03-[address] 300 mg 00:00: 04:59 (300 mg Hospita capsule 00 :00 total) by l mouth nightly for 30 days. aspirin 0 2020- No 81mg Q.5D Take 1 Methodi [...] l mouth nightly for 30 days. zolpidem 0 2020- No 5mg QD Take 1 Method i (AMBIEN) 5 -01 13-15 tablet (5 st MG tablet 00:00: 04:59 mg total) Ho spita 00 :00 by mouth l nightly for 30 days. clopidogrel 2019-02 Yes TAKE ONE Ba ylor (PLAVIX) 75 2-07 TABLET BY Col lege MG Tablet 00:00: MOUTH of 00 DAILY Medicin e Multiple 2019-02 Yes Qd Armond Vitamins-Mi 0-08 College nerals (EYE 16:05: of VITAMINS 09 Medicin OR) e Tamsulosin 2019-02 Yes 4mg 4 mg [facility] HCl 0.4 MG 0-08 daily. Qd [...] zolpidem 2019-02 Yes 10mg Take 10 mg [facility] [facility] (AMBIEN) 5 0-08 by mouth Colle ge MG tablet 16:05: nightly as of 09 needed for Medicin Sleep. e Sulfamethox 2019-02 Yes Take by Ba lizethor azole-Trime 0-08 mouth [place] thoprim 16:05: daily. of (BACTRIM 09 Medicin OR) e furosemide 2019-02 Yes 40mg Take 40 mg B aylor (LASIX) 40 0-08 by mouth Colle ge MG tablet 16:05: daily. of 09 Medicin e gabapentin 2019-02 Yes 100mg Take 100 Ba ylor (NEURONTIN) 0-08 mg by [place] 100 MG 16:05: mouth two of capsule 09 times Medicin daily. e DESVENLAFAX 2019-02 2020- No Take by B farrah INE ER OR 0-08 11-18 mouth [place] 16:04: 00:00 daily. of 59 :00 Medicin e Coenzyme 2019- 2020- No 1 po qd [facility] Q10 100 MG 011-18 [place] CHEW 16:04: 00:00 of 50 :00 Medicin e Niacin CR 2019-02 2020- No 1 po qd [facility]l or 500 MG CPCR 011-18 [place] 16:03: 00:00 of 53 :00 Medicin e Multiple 2019-02 Yes Qd [facility] Vitamins-Mi 0 [place] nerals (EYE 11:05: of VITAMINS Medicin OR) e Tamsulosin 2019-02 Yes 4mg 4 mg [facility] HCl 0.4 MG 0-08 daily. Qd Natan ege CAPS 11:05: of 09 Medicin e FLUTICASONE 2019-02 Yes two times [facility] PROPIONATE, 0-08 daily. Bid Co llege INHAL, 11:05: of INHALATION- 09 Medicin B e pantoprazol 2019-02 Yes 40mg 40 mg [facility] e 0-08 daily. qd College (PROTONIX) 11:05: of 40 MG 09 Medicin tablet e zolpidem 2019-02 Yes 10mg Take 10 mg [facility] (AMBIEN) 5 0-08 by mouth Colle ge MG tablet 11:05: nightly as of needed for Medicin Sleep. e Sulfamethox 2019-02 Yes Take by Chaim anaya azole-Trime 0-08 mouth [place] thoprim 11:05: daily. of (BACTRIM 09 Medicin OR) e furosemide 2019-02 Yes 40mg Take 40 mg [facility] (LASIX) 40 0-08 by mouth Colle ge MG tablet 11:05: daily. of 09 Medicin e gabapentin 2019-02 Yes 100mg Take 100 Ba [facility] (NEURONTIN) 0-08 mg by [place] 100 MG 11:05: mouth two of capsule 09 times Medicin daily. e Colesevelam 2019-0 Yes TAKE [facility] HCl 3.75 g 9-23 DIRECTED Colle ge PACK 00:00: TWICE of 00 DAILY Medicin e Colesevelam 2019-0 Yes TAKE [place] [facility] HCl 3.75 g 9-23 DIRECTED Colle ge PACK 00:00: TWICE of [...] mg per tablet metoprolol Yes TAKE ONE [facility] (LOPRESSOR) 1-24 TABLET BY Col lege 50 MG 00:00: MOUTH of tablet 00 TWICE A Medicin DAY e metoprolol Yes TAKE ONE [place] [facility] (LOPRESSOR) 1-24 TABLET BY Col lege 50 MG 00:00: MOUTH of tablet 00 TWICE A Medicin DAY e clopidogrel 2018-02 Yes TAKE ONE [facility] (PLAVIX) 75 2-09 TABLET BY Col lege MG Tablet 00:00: MOUTH of 00 DAILY Medicin e Nisoldipine 2018-02- No TAKE ONE B [facility]or 34 MG TB24 1-13 10-08 TABLET BY Col lege 00:00: 00:00 MOUTH of 00 :00 DAILY Medicin e COLESEVELAM 2016-02 Yes 3.75g Take 3.[address] [facility] [facility] HCL 2-15 g by mouth [facility] - (WELCHOL 17:11: 2 (two) Medica l ORAL) 46 times Center daily with breakfast and dinner . coenzyme 2016-02 Yes [address] [facility] Q10 100 mg 2-15 [facility] - Chew 17:11: [address] niacin 500 2016-02 Yes [address] [facility] MG CR 2-15 [facility] - capsule 17:11: [address] zolpidem 2016-02 Yes 10mg Take 10 [...] daily. Medica l (OSM) 24 hr 17 [place] tablet losartan 2020- No TAKE ONE [facility] or (COZAAR) 5-21 10-08 TABLET BY Colle ge 100 MG 00:00: 00:00 MOUTH of tablet 00 :00 DAILY Medicin e tamsulosin Yes .4mg 0.[address] (FLOMAX) 5-23 [facility] - 0.4 mg Cp24 00:00: Medica l 24 hr 00 [place] capsule pantoprazol Yes QD daily . [facility] e 5-22 [facility] - (PROTONIX) 00:00: Medical 40 MG 00 [place] tablet pantoprazol Yes 40mg QD Take 40 mg Methodi e 5-[address] (PROTONIX) 00:00: every Hospit a 40 MG EC 00 morning. l tablet clopidogrel Yes QD daily . [facility] (PLAVIX) 75 5-12 [facility] - mg tablet 00:00: Medical 00 [place] fluticasone Yes 2{spray Q.5D [address] [facility] (FLONASE) 5-12 } by Nasal [facility] - 50 00:00: route 2 Medical mcg/actuati 00 (two) Center on nasal times spray daily . metoprolol Yes Q.5D 2 (two) [facility] (LOPRESSOR) 5-12 times [facility] - 50 MG 00:00: daily . Medical tablet 00 [place] nisoldipine Yes 34mg QD 34 mg [facility] (SULAR) 34 5-12 daily . [facility] - MG 24 hr 00:00: Medical tablet 00 [place] metoprolol 2020- No 25mg QD Take 25 mg Methodi tartrate 5-12 02-[address] (LOPRESSOR) 00:00: 00:00 daily. Hos imelda 50 MG 00 :00 l tablet CLOPIDOGREL Yes TAKE 1 Andres dora BISULFATE 1-08 TABLET BY l 75 MG TABS 10:35: MOUTH [place] n 00 DAILY NISOLDIPINE Yes TAKE 1 Andres dora ER 34 MG 1-08 TABLET BY l [id number] 10:35: MOUTH Jimmy 00 DAILY LOSARTAN Yes TAKE 1 Memoria POTASSIUM 1-08 TABLET BY l 100 MG TABS 10:35: MOUTH Mary nn 00 DAILY CYMBALTA 60 Yes TAKE 1 Andres dora MG CPEP 1-08 TABLET BY l 10:35: MOUTH [place] 00 DAILY PANTOPRAZOL Yes TAKE 1 Andres dora E SODIUM 40 1-08 TABLET BY l MG TBEC 10:35: MOUTH [place] 00 DAILY CLOPIDOGREL Yes TAKE 1 Andres dora BISULFATE 1-08 TABLET BY l 75 MG TABS 10:35: MOUTH [place] n 00 DAILY NISOLDIPINE Yes TAKE 1 Andres dora ER 34 MG 1-08 TABLET BY l [id number] 10:35: MOUTH Jimmy 00 DAILY LOSARTAN Yes TAKE 1 Memoria POTASSIUM 1-08 TABLET BY l 100 MG TABS 10:35: MOUTH Mary nn 00 DAILY CYMBALTA 60 Yes TAKE 1 Andres dora MG CPEP 1-08 TABLET BY l 10:35: MOUTH [place] DAILY PANTOPRAZOL Yes TAKE 1 Andres dora E SODIUM 40 1-08 TABLET BY l MG TBEC 10:35: MOUTH Jimmy DAILY WELCHOL Yes 2 packs Memoria 3.75 GM 1-08 per day AM l PACK 00:00: & PM NIACIN 500 Yes 1 tab Memori a MG TABS 1-08 daily l 00:00: PAPAYA Yes 2 tablet Memoria ENZYME TABS 1-08 after main l 00:00: meals METOPROLOL Yes 2 tab AM & M emoria TARTRATE 50 1-08 1 tab PM l MG TABS 00:00: WELCHOL Yes 2 packs Memoria 3.75 GM 1-08 per day AM l PACK 00:00: & PM NIACIN 500 Yes 1 tab Memori a MG TABS 1-08 daily l 00:00: PAPAYA Yes 2 tablet Memoria ENZYME TABS [...] CPEP 2-13 TABLET BY l 14:45: MOUTH [place] 00 DAILY PANTOPRAZOL 2012-02 Yes TAKE 1 Andres dora E SODIUM 40 2-13 TABLET BY l MG TBEC 14:45: MOUTH [place] 00 DAILY METOPROLOL 2012-02 Yes TAKE 1 Memor ia TARTRATE 50 2-13 TABLET BY l MG TABS 14:45: MOUTH Jimmy 00 DAILY LOSARTAN 2012-02 Yes TAKE 1 Memoria POTASSIUM 2-13 TABLET BY l 100 MG TABS 14:45: MOUTH Mary nn 00 DAILY WELCHOL 2012-02 Yes TAKE 1 Memoria 3.75 GM 2-13 TABLET BY l PACK 14:45: MOUTH [place] 00 DAILY CYMBALTA 60 2012-02 Yes TAKE 1 Andres dora MG CPEP 2-13 TABLET BY l 14:45: MOUTH [place] 00 DAILY PANTOPRAZOL 2012-02 Yes TAKE 1 Andres dora E SODIUM 40 2-13 TABLET BY l MG TBEC 14:45: MOUTH Jimmy 00 DAILY PLAVIX 75 2012-02 No TAKE 1 Memori a MG TABS 2-13 TABLET BY l 00:00: MOUTH [place] 00 DAILY OCUVITE EYE 2012-02 Yes Memori a + MULTI 2-13 l TABS 00:00: [place] 00 COQ10 CAPS 2012-02 Yes Memoria 2-13 l 00:00: Jimmy 00 ASPIRIN 81 2012-02 Yes Memoria MG TABS 2-13 l 00:00: [place] 00 FLOMAX 0.4 2012-02 Yes one every Me moria MG CAPS 2-13 evening. l 00:00: Jimmy 00 LUNESTA 3 2012-02 Yes TAKE 1 Memori a MG TABS 2-13 TABLET BY l 00:00: MOUTH Jimmy 00 DAILY LUNESTA 3 2012-02 Yes TAKE 1 Memori a MG TABS 2-13 TABLET BY l 00:00: MOUTH Jimmy 00 DAILY FLOMAX 0.4 2012-02 No one every Me moria MG CAPS 2-13 evening. l 00:00: 00 PLAVIX 75 2012-02 No TAKE 1 Memori a MG TABS 2-13 TABLET BY l 00:00: MOUTH 00 DAILY OCUVITE EYE 2012-02 Yes Memori a + MULTI 2-13 l TABS 00:00: 00 COQ10 CAPS 2012-02 Yes Memoria 2-13 l 00:00: [place] 00 ASPIRIN 81 2012-02 Yes Memoria MG TABS 2-13 l 00:00: Jimmy 00 FLOMAX 0.4 2012-02 Yes one every Me moria MG CAPS 2-13 evening. l 00:00: Jimmy 00 LUNESTA 3 2012-02 Yes TAKE 1 Memori a MG TABS 2-13 TABLET BY l 00:00: MOUTH Jimmy 00 DAILY LUNESTA 3 2012-02 Yes TAKE 1 Memori a MG TABS 2-13 TABLET BY l 00:00: MOUTH DAILY FLOMAX 0.4 2012-02 No one every Me moria MG CAPS 2-13 evening. l 00:00: [place] 00 FLUTICASONE Yes 1 spray in Memoria [...] 2007-06-14 Completed [facility] immunization 14:23:57 Jimmy administered pneumococcal 2007-06-14 Completed [facility] immunization 14:23:57 Jimmy administered hepatitis B vaccine 2006-04-11 Completed Memor ial #3 15:23:57 [place] hepatitis B vaccine 2006-04-11 Completed Memor ial #3 15:23:57 [place] chicken pox 2006-03-20 Completed [facility] immunization #1 [...] 2006-02-25 Completed Memor ial #1 given 15:23:57 [place] hepatitis B vaccine 2006-02-25 Completed Memor ial #1 given 15:23:57 [place] Vital Signs Vital Name Observation Time Observation Value Comments Source Heart rate 2021-05-15 14:59:00 72 /min [facility] Body height 2021-05-15 14:59:00 172.7 cm [facility] Systolic blood 2021-05-15 14:59:00 138 mm[Hg] [facility] pressure Medicine Diastolic blood 2021-05-15 14:59:00 74 mm[Hg] [facility] Medicine Systolic blood 2019-11-19 15:57:00 146 mm[Hg] [facility] Medicine Diastolic blood 2019-11-19 15:57:00 72 mm[Hg] [facility] Medicine Heart rate 2019-11-19 15:57:00 91 /min [facility] Body height 2019-11-19 15:57:00 172.7 cm [facility] Body weight 2019-11-19 15:57:00 83.462 kg [facility] BMI 2019-11-19 15:57:00 27.98 kg/m2 [facility] Systolic blood 2019-11-19 15:57:00 146 mm[Hg] [facility] Medicine Diastolic blood 2019-11-19 15:57:00 72 mm[Hg] [facility] Heart rate 2019-11-19 15:57:00 91 /min [facility] Body height 2019-11-19 15:57:00 172.7 cm [facility] Body weight 2019-11-19 15:57:00 83.462 kg [facility] BMI 2019-11-19 15:57:00 27.98 kg/m2 [facility] Systolic blood 2019-11-12 01:28:00 126 mm[Hg] [facility] of pressure [facility] Diastolic blood 2019-11-12 01:28:00 63 mm[Hg] Unive rsity of pressure [facility] Heart rate 2019-11-12 01:28:00 84 /min [facility] Respiratory rate 2019-11-12 01:28:00 20 /min Univ ersity of [facility] Oxygen saturation in 2019-11-12 01:28:00 100 /min University of Arterial blood by [facility] Pulse oximetry Branch Systolic blood 2019-11-12 01:00:00 142 mm[Hg] Univer sity of pressure [facility] Diastolic blood 2019-11-12 01:00:00 71 mm[Hg] Unive rsity of pressure [facility] Heart rate 2019-11-12 01:00:00 84 /min [facility] Respiratory rate 2019-11-12 01:00:00 14 /min Univ ersity of [facility] Oxygen saturation in 2019-11-12 01:00:00 99 /min University of Arterial blood by [facility] Pulse oximetry Branch Body temperature 2019-11-11 22:21:00 36.61 Pat [facility] [place] [facility] Body weight 2019-11-11 22:21:00 85 kg [facility] Systolic blood 2019-11-12 01:28:00 126 mm[Hg] [facility] Diastolic blood 2019-11-12 01:28:00 63 mm[Hg] [facility] Heart rate 2019-11-12 01:28:00 84 /min [facility] Respiratory rate 2019-11-12 01:28:00 20 /min [facility] Oxygen saturation in 2019-11-12 01:28:00 100 /min [facility] [place] [facility] Pulse oximetry [facility] Systolic blood 2019-11-12 01:00:00 142 mm[Hg] Univer sity of pressure [facility] Diastolic blood 2019-11-12 01:00:00 71 mm[Hg] Unive rsity of pressure [facility] Heart rate 2019-11-12 01:00:00 84 /min [facility] Respiratory rate 2019-11-12 01:00:00 14 /min [facility] O[facility] saturation in 2019-11-12 01:00:00 99 /min [facility] Arterial blood by [facility] Pulse oximetry Branch Body temperature 2019-11-11 22:21:00 36.61 Pat [facility] Body weight 2019-11-11 22:21:00 85 kg [facility] Body height 2020-04-27 20:44:00 172.7 cm [facility] Body weight 2020-04-27 20:44:00 84.369 kg [facility] BMI 2020-04-27 20:44:00 28.28 kg/m2 [facility] Systolic blood 2020-03-26 14:44:51 139 mm[Hg] [facility] pressure Diastolic blood 2020-03-26 14:44:51 66 mm[Hg] [facility] pressure Heart rate 2020-03-26 14:44:51 80 /min [facility] Body temperature 2020-03-26 14:44:51 36 Pat [facility] Respiratory rate 2020-03-26 14:44:51 19 /min [facility] Oxygen saturation in 2020-03-26 14:44:51 96 /min [facility] Arterial blood by Pulse oximetry Height 2014-02-18 15:55:42 [facility] Weight 2014-02-18 15:55:42 [facility] Temperature Oral (F) 2014-02-18 15:55:42 97.5 F [facility] [place] Heart Rate 2014-02-18 15:55:42 [facility] Systolic (mm Hg) 2014-02-18 15:55:42 Andres ria [facility] Diastolic (mm Hg) 2014-02-18 15:55:42 Mem orial [place] Weight 2013-01-23 19:53:21 [facility] Temperature Oral (F) 2013-01-23 19:53:21 97.6 F [facility] [place] Heart Rate 2013-01-23 19:53:21 [facility] Height 2013-01-23 19:53:21 [facility] Systolic (mm Hg) 2013-01-23 19:53:21 Andres rial Jimmy Diastolic (mm Hg) 2013-01-23 19:53:21 Mem [facility]rial [facility] Procedures Procedure Date / Time Performing Clinician Source Performed [id number] 2020-05-24 00:00:00 GRANI [facility] [id number] 2020-05-20 00:00:00 GIBJE.01 [facility] [id number] 2020-05-20 00:00:00 GIBJE.01 [facility] [id number] 2020-05-20 00:00:00 GIBJE.01 [facility] 3X9N99Q 2020-05-20 00:00:00 SEEGE [facility] 5A6O58Q 2020-05-16 00:00:00 JUSTINO.03 [facility] [id number] 2020-05-14 00:00:00 JUSTINO.03 [facility] 1D2G35V 2020-05-11 00:00:00 ENCPL 2Q0V71Y 2020-05-11 00:00:00 ENCPL 5K5K80I 2020-05-11 00:00:00 ENCPL 1C1J52T 2020-05-11 00:00:00 ENCPL 3V9H27W 2020-03-30 00:00:00 ENCCY 4L5L42V 2020-03-30 00:00:00 ENCCY 6T2Z05J 2020-03-30 00:00:00 ENCCY 7D2L94Q 2020-03-30 00:00:00 ENCCY 1V5C45B 2020-03-30 00:00:00 ENCCY 2O6L54B 2020-03-30 00:00:00 ENCCY 2J9D40J 2020-03-30 00:00:00 ENCCY 1H6M95G 2020-03-30 00:00:00 ENCCY 2S9R12V 2020-03-30 00:00:00 ENCCY 0D4S00I 2020-03-30 00:00:00 ENCCY 8J3U03F 2020-03-30 00:00:00 ENCCY 0R0D54T 2020-03-30 00:00:00 ENCCY 5Q8A54O 2020-03-30 00:00:00 ENCCY 5K2T34E 2020-03-30 00:00:00 ENCCY 9G2O68N 2020-03-30 00:00:00 ENCCY 3M1T60U 2020-03-30 00:00:00 ENCCY 0Y2I20G 2020-03-30 00:00:00 ENCCY 3O2W93J 2020-03-30 00:00:00 ENCCY 5G0X66J 2020-03-30 00:00:00 ENCCY 4N2K03R 2020-03-30 00:00:00 ENCCY 5D5H12O 2020-03-30 00:00:00 ENCCY 2M2K53B 2020-03-30 00:00:00 ENCNELLI HC COMPLETE BLD COUNT 2020-03-25 10:45:00 [facility] W/AUTO DIFF Obi BASIC METABOLIC PANEL 2020-03-25 10:00:00 [facility] Obi ESTIMATED GFR 2020-03-25 10:00:00 Clint King Ho spital Obi HEMODIALYSIS 2020-03-24 22:39:54 [facility] COMPLETE BLD COUNT 2020-03-24 11:00:00 [facility] W/AUTO DIFF Obi BASIC METABOLIC PANEL 2020-03-24 10:00:00 [facility] Obi ESTIMATED GFR 2020-03-24 10:00:00 Clint King Ho spital Obi US CAROTID DUPLEX 2020-03-23 18:31:05 Bear Mariee [facility] BILATERAL BASIC METABOLIC PANEL 2020-03-23 09:20:00 [facility] Obi HC COMPLETE BLD COUNT 2020-03-23 09:20:00 [facility] W/AUTO DIFF Obi ESTIMATED GFR 2020-03-23 09:20:00 Clint King spital Obi POC GLUCOSE 2020-03-22 22:27:00 Clint King spital Obi HEMODIALYSIS 2020-03-22 22:13:20 Romy Woodson spital Tabitha ANAEROBIC CULTURE 2020-03-22 20:52:00 Usha, [facility] FUNGUS CULTURE 2020-03-22 20:52:00 Usha Obi [facility] [employer] STAIN 2020-03-22 20:52:00 Usha Obipopeye Ferrer spital AEROBIC CULTURE 2020-03-22 20:52:00 Usha Obipopeye Ferrer spital FUNGUS SMEAR 2020-03-22 20:52:00 Usah, Obipopeye Ferrer spital ANAEROBIC CULTURE 2020-03-22 20:50:00 [facility] FUNGUS CULTURE 2020-03-22 20:50:00 Usha Obipopeye Ferrer spital AF[employer] STAIN 2020-03-22 20:50:00 Usha, [facility] spital AEROBIC CULTURE 2020-03-22 20:50:00 Usha, Obipopeye Ferrer spital GRAM STAIN 2020-03-22 20:50:00 Usha Obipopeye Ferrer spital SURGICAL PATHOLOGY 2020-03-22 20:30:00 Clint King [facility] REQUEST Obi [employer] CULTURE 2020-03-22 19:52:00 Obi Kerr spital AF[employer] CULTURE 2020-03-22 19:50:00 Usha Obi Ar[facility] Ho spital OR FL < 1 HOUR 2020-03-22 19:30:00 Usha Obipopeye Ferrer spital [place] AN ELECTIVE 2020-03-22 19:25:28 Tejal Simpson H ospital ENDOTRACHEAL AIRWAY AMPUTATION, ABOVE KNEE 2020-03-22 18:47:00 Obi Kerr [facility] POC GLUCOSE 2020-03-22 15:07:00 Clint King spital Obi HC COMPLETE BLD COUNT 2020-03-22 12:45:00 Carlos Nelson [facility] W/AUTO DIFF TYPE AND SCREEN 2020-03-22 12:45:00 Carlos Nelson spital VANCOMYCIN LEVEL, RANDOM 2020-03-22 10:00:00 [facility] BASIC METABOLIC PANEL 2020-03-22 10:00:00 [facility] Obi ESTIMATED GFR 2020-03-22 10:00:00 Clint King spital Obi LIPID PANEL 2020-03-22 10:00:00 Bear Mariee Ho spital HEPATITIS B SURFACE 2020-03-21 14:22:00 [facility]IGEN [facility]OT[facility]OM[facility] TIME WITH INR 2020-03-21 12:15:[address] [facility] PARTIAL THROMBOPLASTIN 2020-03-21 12:15:00 [facility] TIME (PTT) BASIC METABOLIC PANEL 2020-03-21 12:15:00 [facility] CBC WITH PLATELET AND 2020-03-21 12:15:00 [facility] DIFFERENTIAL VANCOMYCIN LEVEL, RANDOM 2020-03-21 12:15:00 [facility] ESTIMATED GFR 2020-03-21 12:15:00 [facility] HEMODIALYSIS 2020-03-21 06:05:17 Kumar Ayala H ospital VANCOMYCIN LEVEL, RANDOM 2020-03-20 20:54:00 [facility] BASIC METABOLIC PANEL 2020-03-20 11:30:00 [facility] GFR 2020-03-20 11:30:00 Clint King spital Obi TTE COMPLETE, W CONTRAST, 2020-03-19 18:00:00 Mickey Martinez [facility] W DOPPLER ([id number]) HC COMPLETE BLD COUNT 2020-03-19 10:14:00 Brooklynn Horner [facility] W/AUTO DIFF MRI KNEE WO CONTRAST 2020-03-19 09:38:00 Cotton, Mickey [facility] RIGHT MRI THIGH WO CONTRAST 2020-03-19 08:52:00 Mickey Martinez [facility] RIGHT MRI LOWER EXTREMITY WO 2020-03-19 08:07:00 Mickey Martinez [facility] CONTRAST RIGHT BASIC METABOLIC PANEL 2020-03-19 07:01:00 [facility] ESTIMATED GFR 2020-03-19 07:01:00 [facility] spital LACTIC ACID LEVEL 2020-03-19 07:01:00 [facility] LACTIC ACID LEVEL, SEPSIS 2020-03-19 01:46:00 [facility] - NOW AND REPEAT 2X EVERY [place] 3 HOURS BLOOD CULTURE, AEROBIC & 2020-03-18 23:22:00 [facility] ANAEROBIC [place] COVID-19 QUALITATIVE 2020-03-18 23:22:00 [facility] RT-PCR [place] BLOOD CULTURE, AEROBIC & 2020-03-18 23:16:00 [facility] ANAEROBIC [place] HC COMPLETE BLD COUNT 2020-03-18 23:16:00 [facility] W/AUTO DIFF [place] PROTHROMBIN TIME WITH INR 2020-03-18 23:16:00 [facility] [place] PARTIAL THROMBOPLASTIN 2020-03-18 23:16:00 [facility] TIME (PTT) [place] TYPE AND SCREEN 2020-03-18 [facility]00 [facility] [place] COMPREHENSIVE METABOLIC 2020-03-18 23:16:00 [facility] PANEL [place] LACTIC ACID LEVEL, SEPSIS 2020-03-18 23:16:00 [facility] - NOW AND REPEAT 2X EVERY [place] 3 HOURS C-REACTIVE PROTEIN 2020-03-18 23:16:00 [facility] [place] SEDIMENTATION RATE 2020-03-18 23:16:00 [facility] [place] ESTIMATED GFR 2020-03-18 23:16:00 [facility] [place] URINE CULTURE 2020-03-18 23:10:00 Irais Monroe spital [place] URINALYSIS SCREEN AND 2020-03-18 23:10:00 FerIrais [facility] MICROSCOPY, WITH REFLEX [place] TO CULTURE XR KNEE 1 OR 2 VW RIGHT 2020-03-18 23:03:39 FerIrais [facility] [place] XR TIBIA FIBULA 2 VW 2020-03-18 23:03:04 FerIrais [facility] RIGHT [place] URINALYSIS 2019-11-11 23:48:00 [facility] XR CHEST 1 VW 2019-11-11 23:02:37 [facility] MAGNESIUM 2019-11-11 22:43:00 [facility] COMP. METABOLIC PANEL 2019-11-11 22:43:00 [facility] ([id number] CBC WITH DIFF 2019-11-11 22:43:00 [facility] TROPONIN I 2019-11-11 22:43:00 [facility] EKG-12 LEAD 2019-11-11 22:40:13 [facility] Plan of Care Planned Activity Planned Date Details Comments Source Future Scheduled 2021-05-15 Screening for malignant [facility] Test 12:13:46 neoplasm of colon of Medicin e (procedure) [code = 427397432] Future Scheduled 2021-05-15 COVID-19 Vaccine (1) [facility] Test 12:13:46 [code = COVID-19 of Medicine Vaccine (1)] Future Scheduled 2021-05-15 TETANUS SHOT (ADULT) [facility] Test 12:13:46 [code = TETANUS SHOT of Medi cine (ADULT)] Future Scheduled 2021-05-15 BMI FOLLOW UP PLAN [facility] Test 12:13:46 [code = BMI FOLLOW UP of Med icine PLAN] Future Scheduled 2021-05-15 Hepatitis C screening [employer] Test 12:13:46 (procedure) [code = of Medic ine [id number]] Future Scheduled 2021-05-15 ZOSTER VACCINE (1 of 2) [employer] Test 12:13:46 [code = ZOSTER VACCINE of Me dicine (1 of 2)] Future Scheduled 2021-05-15 FALL SCREEN [code = [employer] Test 12:13:46 FALL SCREEN] of Medicine Future Scheduled 2021-05-15 Pneumococcal 65+ (1 of [employer] Test 12:13:46 1 - PPSV23) [code = of Medic ine Pneumococcal 65+ (1 of 1 - PPSV23)] Future Scheduled 2021-05-15 MEDICARE AWV (Initial) [employer] Test 12:13:46 [code = MEDICARE AWV of Medi cine (Initial)] Future Scheduled 2021-05-15 FLU VACCINE > 6 MONTHS [employer] Test 12:13:46 [code = FLU VACCINE > 6 of M edicine MONTHS] Future Scheduled 2021-05-15 ELECTROCARDIOGRAM [facility] Test 10:00:47 COMPLETE [code = 02063] of M edicine Diagnostic Test 2021-05-15 MYOCARD PERFUSION - Expected: [employer] Pending 00:00:00 LEXISCAN [code = 55559] 05/15/2021, of M edicine Expires: 11/14/2022 Diagnostic Test 2021-05-15 ECHO, COMPLETE [code = Expected: [employer] Pending 00:00:00 06035] 05/15/2021, of Medicine Expires: 11/14/2021 Future Scheduled ELECTROCARDIOGRAM [facility] Test COMPLETE [code = 39735] of M edicine Future Scheduled COLON CANCER SCREENING: [facility] Test COLONOSCOPY [code = of Medic ine COLON CANCER SCREENING: COLONOSCOPY] Future Scheduled TETANUS SHOT (ADULT) [employer] Test [code = TETANUS SHOT of Medi cine (ADULT)] Future Scheduled BMI FOLLOW UP PLAN [employer] Test [code = BMI FOLLOW UP of Med icine PLAN] Future Scheduled HEPATITIS C SCREENING [employer] Test [code = HEPATITIS C of Medic ine SCREENING] Future Scheduled ZOSTER VACCINE (1 of 2) [employer] Test [code = ZOSTER VACCINE of Me dicine (1 of 2)] Future Scheduled FALL SCREEN [code = [employer] Test FALL SCREEN] of Medicine Future Scheduled PNEUMOVAX >=65 (PPSV23) [facility] Test [code = PNEUMOVAX >=65 of Me dicine (PPSV23)] Future Scheduled MEDICARE AWV (Initial) [employer] Test [code = MEDICARE AWV of Medi cine (Initial)] Future Scheduled FLU VACCINE > 6 MONTHS [employer] Test [code = FLU VACCINE > 6 of M edicine MONTHS] Future Scheduled 65+ PNEUMOCOCCAL [facility] Test VACCINE (1 of 4 - Hospital PCV13) [code = 65+ PNEUMOCOCCAL VACCINE (1 of 4 - PCV13)] Future Scheduled DIABETES: RETINAL EYE [facility] EXAM [code = DIABETES: Hospi sean RETINAL EYE EXAM] Future Scheduled DIABETIC FOOT EXAM [facility] [code = DIABETIC FOOT Hospit al EXAM] Future Scheduled COVID-19 VACCINE (1) [facility] Test [code = COVID-19 Hospital VACCINE (1)] Future Scheduled COLONOSCOPY SCREENING [facility] Test [code = COLONOSCOPY Hospital SCREENING] Future Scheduled SHINGLES VACCINES (#1) [facility] Test [code = SHINGLES Hospital VACCINES (#1)] Future Scheduled INFLUENZA VACCINE [code [facility] = INFLUENZA VACCINE] Hospita l Future Scheduled EVENT MONITOR [code = 1 Occurrences [employer] Test 73530] starting of Medicine 11/19/2019 until 02/17/2020 Encounters Start End Encounter Admission Attending Care Care Encounter Source Date/Time Date/Time Type Type Clinicians Facility Department ID 2021-03-09 Outpatient 3 [id number] ENCPL BIT ENCPL 11:54:24 0407 2021-03-09 Outpatient 3 [id number] ENCPL REF ENCPL 11:53:41 0406 2021-03-09 Outpatient 3 [id number] ENCPL REF ENCPL 11:50:56 0329 2021-03-09 Outpatient 3 MICHELLE DIAZ AML [id number] ENCCY 11:34:54 IGNAZIO 91497 2021-03-09 Outpatient 3 [id number] ENCPL REF ENCPL 11:33:20 0212 2021-03-09 Outpatient 3 [id number] ENCPL REF ENCPL 11:32:52 0211 2021-03-09 Outpatient 3 [id number] ENCPL REF [id number] ENCPL 11:32:32 0210 2020 Inpatient Kirsten, HCACL HCACL [id number] [facility] 10:29:00 Sekou 19 [facility] 2020 Outpatient Viviane, HCADION HCAPM [id number] [facility] 10:29:00 Undefined 34 [facility] 2020 Inpatient Srinivas, HCACL HCACL [id number] [facility] 10:28:59 Lambert 61 [facility] 2020-06-03 Inpatient Kirsten, HCACL HCACL [id number] [facility] 07:15:00 Sekou [id number] [facility] 2020-05-19 Inpatient UR Kirsten, HCACL REHA [id number] [facility] 18:00:00 Sekou [id number] [facility] 2020-05-13 Inpatient HCACL DIGNA [id number] [facility] 01:15:00 [id number] [facility] 2020-03-26 Inpatient 3 Christo, ENCPL AML [id number] ENCPL 12:00:00 Chaya 2122021-05-15 2021-05-15 Office CHELSEA Shaffer [id number] [facility] 10:00:00 10:49:30 Visit Mickey Lee AMBULATOR 350.1.13.21 College Y 0.2.7.2.686 [id number] Medi sky 300 e 2020-12-07 2020-12-07 Outpatient [facility] [id number] [place] 00:00:00 00:00:00 ZUNIR[address] 2020-10-01 2020-10-[address] [facility] 012 [id number] [address] [place] 00:00:00 00:00:00 YAHYA [address] 2020-05-12 2020-05-12 Outpatient CHRISTIAN VALLE [id number] [facility] 21:45:00 21:45:00 CHAYA [id number] [facility] 2020-04-27 2020-04-27 Telemedici Obi Kerr 1.2.840.1 [id number] Methodi 15:36:30 16:10:[address] 3.430.2.7 Hospit a .3.888423 l .8 2020-04-27 2020-04-27 Travel 1.2.840.1 1.2.112.463 1227 [id number] Methodi 00:00:00 00:00:[address] 3.430.2.7 0.2.7.3.698 Ho spita .3.598418 084.8 l .8 2020-04-26 2020-04-26 Travel 1.2.840.1 1.2.424.164 6417 310126 Methodi 00:00:00 00:00:[address] 3.430.2.7 0.2.7.3.698 Ho spita .3.260539 084.8 l .8 2020-04-13 2020-04-18 [facility] 1.2.840.1 [id number] Methodi 11:45:02 00:23:05 Visit Archie 63544.1.[address] 3.430.2.7 Hospit a .3.082243 l .8 2020-04-13 2020-04-13 Travel 1.2.840.1 1.2.814.957 6528 610270 Methodi 00:00:00 00:00:[address] 3.430.2.7 0.2.7.3.698 Ho spita .3.399472 084.8 l .8 2020-04-05 2020-04-05 Abstract Sugar, 1.2.840.1 [id number] 484 [id number] Methodi 00:00:00 00:00:[address] 3.430.2.7 Hospit a .3.792034 l .8 2020-04-04 2020-04-04 [facility] 1.2.840.1 [id number] Methodi 13:34:38 14:35:21 Visit Archie 40244.1.[address] 3.430.2.7 Hospit a .3.563242 l .8 2020-04-04 2020-04-04 Travel 1.2.840.1 1.2.391.785 0141 753453 Methodi 00:00:00 00:00:[address] 3.430.2.7 0.2.7.3.698 Ho spita .3.184823 084.8 l .8 2020-04-01 2020-04-01 Orders Sugar, 1.2.840.1 [id number] 2099 104461 Methodi 00:00:00 00:00:00 Only Emilee 91229.1.[address] 3.430.2.7 Hospit a .3.702894 l .8 2020-04-01 2020-04-01 Travel 1.2.840.1 1.2.825.767 5237 572839 Methodi 00:00:00 00:00:[address] 3.430.2.7 0.2.7.3.698 Ho spita .3.958901 084.8 l .8 2020-03-18 2020-03-26 [facility] 1.2.840 .1 [id number] Methodi 15:51:00 11:35:00 Encounter Clint King 60330.1.[address] [place], ar 3.430.2.7 Hos imelda .3.720419 l .8 2020-03-22 2020-03-22 Anesthesia Liu Mccloud 1.2.840.1 [id number] Methodi 12:47:00 16:31:00 Event Clint Graham 17414.1.[address] 3.430.2.7 Hospit a .3.254934 l .8 2020-03-22 2020-03-22 Surgery Obi Kerr 1.2.840.1 [id number] 120 [id number] Methodi 12:53:00 14:38:[address] 3.430.2.7 Hospit a .3.037245 l .8 2019-11-19 2019-11-19 Office CHELSEA York 1.2.840.114 [id number] 10:50:53 15:23:52 Visit Oswald S AMBULATOR 350.1.13.21 Y 0.2.7.2.686 [id number] 300 2019-11-19 2019-11-19 Office CHELSEA York 1.2.840.114 [id number] 61 [facility] 10:50:53 15:23:52 Visit Oswald S AMBULATOR 350.1.13.21 College Y 0.2.7.2.686 [id number] [facility] 300 e 2019-11-11 2019-11-11 Emergency Wanda Henson RUST 1.2.840.114 78 [id number] 17:16:00 22:21:00 Lisa Pineda 350.1.13.10 [place] 4.2.7.2.686 [place] [id number] [facility] 2019-11-11 2019-11-11 Emergency Wanda Henson RUST 1.2.840.114 78 [id number] [facility] 17:16:00 22:21:00 Lisa Pineda 350.1.13.10 i ty of [place] 4.2.7.2.686 [facility] [id number] [facility] 084 Branch 2019-11-11 2019-11-11 Emergency X Wanda HENSON RUST ERT [id number] Univers 17:16:00 17:16:00 ity of [facility] 2019-11-03 2019-11-03 Telephone Melany, 1.2.840.1 [id number] 2100 [id number] Methodi 09:01:34 09:25:16 Consult Liss Baxter 47986.1.[address] 3.430.2.7 Hospit a .3.536611 l .8 2014-02-18 2014-02-18 Office [facility] [id number] 141 Memoria 00:00:00 00:00:00 Visit artie Marquez [id number] Medical [facility] 2014-02-18 2014-02-18 [facility] 1736 [id number] Memoria 00:00:00 00:00:00 artie [place] [id number] madhu [facility] 2013-01-23 2013-01-23 Lab Report Cristal [facility] 1702 686196 Memoria 00:00:00 00:00:00 artie Marquez 129166 madhu [facility] Results Test Description Test Time Test Comments Results Result Sourc e Comments - XR CHEST 1 V 2020-05-31 14:08:00 [facility] 1945 Sex: M FAX: Sekou Jeffery [phone] [place]: St: ADM Name: DARIEN HUYNH [facility] : 1945 Age/S: 74/M [address] [place] [address] Bl Unit #: [id number] Loc: [address] [address] Phys: Sekou Curtis MD Acct: [id number] Dis Date: Status: ADM IN PHONE #: [phone] Exam Date: 05/31/20201405 FAX #: [phone] Reason: HD protocol, need to make sure no TB EXAMS: CPT CODE: [id number] XR CHEST 1 V 61950 EXAM: Single view AP chest. EXAM DATE: [...] Curtis Technologist: RT Marques(Artie) Trnscrd Date/Time/By: 05/31/2020 (140) : By: CarlitoCER Orig Print D/T: S: 05/31/2020 (7564) PAGE 1 Signed Report - XR CHEST 1 V 2020-05-31 14:08:00 [facility] 1945 Sex: M FAX: Sekou Jeffery X [phone] [place]: St: DIS Name: DARIEN HUYNH [facility] : 1945 Age/S: 74/M [address] [place] [address] Blvd Unit #: [id number] Loc: [place] [address] Phys: Sekou Curtis MD Acct: [id number] Dis Date: Status: DIS IN PHONE #: [phone] Exam Date: 05/31/20201405 FAX #: [phone] Reason: HD protocol, need to make sure no TB EXAMS: CPT CODE: [id number] XR CHEST 1 V 85329 EXAM: Single view AP chest. 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 2 mg/dL BASIC METABOLIC [id number] 07:53:00 Test Item Value Reference Range Interpretation [...] 8.2 mg/dL 8.0-10.5 N CA) BASIC METABOLIC [id number] 04:28:00 Test Item Value Reference Range Interpretation [...] 9.3 mg/dL 8.0-10.5 N CA) CBC W/AUTO [id number] 08:31:00 Test Item Value Reference Range Interpretation [...] (test code NO = MDIFF) BASIC METABOLIC [id number] 07:59:00 Test Item Value Reference Range Interpretation [...] CA) - USG NDL PLACEMENT (Bxg/Asp)2020-05-24 15:12:00 [facility] 1945 Sex: M Name: DARIEN HUYNH [facility] : 1945 Age/S: 74 / M [address] [place] [address] Unit #: [id number] Loc: [place] [address] Phys: Jonathan Sheikh NPAcct: [id number] Dis Date: Status: ADM IN PHONE #:[phone] Exam Date: 05/24/2020 [facility]4 FAX #: [phone] Reason: right aka fluid collection EXAMS: CPT CODE: [id number] USG NDL PLACEMENT (Bxg/Asp) 69317 PROCEDURE: Ultrasound-guided right knee stump fluid collection. [...] Technologist: Rosemarie Ayon Trnscb Date/Time: 05/24/2020 (1511) [email or web address] Orig Print D/T: S: 05/24/2020 (616) Probe: PAGE 1 Signed Report- USG NDL PLACEMENT (Bxg/Asp)2020-05-24 15:12:00 [facility] : 1945 Sex: M Name: DARIEN HUYNH [facility] [place] : 1945 Age/S: 74 / M [address] [place] [address] Unit #: [id number] Loc: [place] [address] Phys: Jonathan Sheikh NPAcct: [id number] Dis Date: Status: DIS IN PHONE #:[phone] Exam Date: 05/24/2020 [facility]4 FAX #: [phone] Reason: right aka fluid collection EXAMS: CPT CODE: [id number] USG NDL PLACEMENT (Bxg/Asp) 87653 PROCEDURE: Ultrasound-guided right knee stump fluid collection. [...] Technologist: Rosemarie Ayon Trnscb Date/Time: 05/24/2020 (151) [email or web address] Orig Print D/T: S: 05/24/2020 (1515) Probe: PAGE 1 Signed Report- CT LOWER EXTRM W/O C [id number] 18:02:00 [facility] : 1945 Sex: M Name: DARIEN HUYNH [facility] [place] : 1945 Age/S: 74 / M [address] [place] [address] Unit #: [id number] Loc: [place] [address] Phys: Jonathan Sheikh NPAcct: [id number] Dis Date: Status: ADM IN PHONE #:[phone] Exam Date: 05/23/2020 1728 FAX #: [phone] Reason: right bka, r/o fluid collection EXAMS: CPT CODE: [id number] [place] L[place] EXTRM W/[place] [address] [place] right femur without contrast. INDICATION: Right [...] iterative reconstruction techniques. DLP: 566 mGy-cm FINDINGS: Bxvwp-gbl-jljr amputation has been performed. A permeative pattern [...] Correlate with MRI as clinically indicated. SL: SGGlenn at 1802 Reported and signed by: Dominic Mena M.D. CC: Sekou Curtis; Jonathan Sheikh AIRBRUSH ARTIST Technologist:David Aguirre, RT(R)(CT) CTDI: DLP: Trnscb Date/Time: 05/23/2020 (1801) t.SDR.SG9 Orig Print D/T: S: 05/23/2020 (1805) PAGE 1 Signed Report- CT LOWER EXTRM W/O C [id number] 18:02:00 [facility] 1945 Sex: M Name: DARIEN HUYNH [facility] : 1945 Age/S: 74 / M [address] [place] [address] Blvd Unit #: [id number] Loc: [place] [address] Phys: Jonathan Sheikh NPAcct: [id number] Dis Date: Status: DIS IN PHONE #:[phone] Exam Date: 05/23/20201727 FAX #: [phone] Reason: right bka, r/o fluid collection EXAMS: CPT CODE: [id number] CT LOWER EXTRM W/[place] [address] CT right femur without contrast. INDICATION: Right [...] iterative reconstruction techniques. DLP: 566 mGy-cm FINDINGS: Yyrue-dbz-xunl amputation has been performed. A permeative pattern [...] CC: Sekou Curtis; Jonathan Sheikh NP Technologist:RT Lindsay(R)(CT) CTDI: DLP: Trnscb Date/Time: 05/23/2020 (1801) [email or web address].SG9 Orig Print D/T: S: 05/23/2020 (1805) PAGE 1 Signed ReportBASIC METABOLIC [id number] 13:38:00 Test Item Value Reference Range Interpretation [...] code = 9.6 mg/dL 8.0-10.5 N CA) [id number] 13:38:00 Test Item Value Reference Range Interpretation Comments PHOSPHOROUS (test code = PHOS) 3.9 MG/DL 2.5-4.9 N [id number] 13:36:00 Test Item Value Reference Range Interpretation Comments ALBUMIN (test code = ALB) 3.20 g/dL 3.4-5.0 L [id number] 13:36:00 Test Item Value Reference Range Interpretation Comments PREALBUMIN (test code = PREALB) 14.3 mg/dL 16.0-40.0 L CBC W/AUTO [id number] 13:15:00 Test Item Value Reference Range Interpretation [...] (test code NO = MDIFF) SED RATE [id number] 08:19:00 Test Item Value Reference Range Interpretation Comments SED RATE WESTERGREN (test code = 114 mm/hr 0-15 H SEDW) [id number] 08:09:00 Test Item Value Reference Range Interpretation Comments PREALBUMIN (test code = PREALB) 13.1 mg/dL 16.0-40.0 L C REACTIVE [id number] 08:08:00 Test Item Value Reference Range Interpretation Comments C REACTIVE PROTEIN (test code = 192.0 mg/L <10.0 H CRP) CBC W/AUTO [id number] 07:57:00 Test Item Value Reference Range Interpretation [...] MDIFF) - XR HIP W/PEL UNI 2+V [id number] 18:35:00 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 CC: Sekou Curtis; Dusty Smiley AIRBRUSH ARTIST Technologist: TORSTEN Lee) Trnscrd Date/Time/By: 05/21/2020 (1834) : By: [email or web address] Orig Print D/T: S: 05/21/2020 (1837) PAGE 1 Signed Report- XR HIP W/PEL UNI 2+V [id number] 18:35:00 [facility] : 1945 Sex: M FAX: Sekou Jeffery [phone] [place]: St: DIS FAX: Dusty Smiley [phone] Name: DARIEN HUYNH [facility] : 1945 Age/S: 74/M [address] [place] [address] Unit #: [id number] Loc: [place] [address] Phys: Dusty Smiley NP Acct: [id number] Dis Date: Status: DIS IN PHONE #: [phone] Exam Date: 05/21/20201734 FAX #: [phone] Reason: left hip pain EXAMS:CPT CODE: [id number] XR HIP W/PEL UNI 2+[place] [address] 2+ RADIOGRAPHIC VIEWS LEFT HIP INDICATION: left [...] (test code NO = MDIFF) BASIC METABOLIC [id number] 07:40:00 Test Item Value Reference Range Interpretation [...] 9.1 mg/dL 8.0-10.5 N CA) COMPREHENSIVE METABOLIC [id number] 06:03:00 Test Item Value Reference Range Interpretation [...] TOTAL (test code = ALKP) CBC W/AUTO [id number] 05:49:00 Test Item Value Reference Range Interpretation [...] (test code NO = MDIFF) BASIC METABOLIC [id number] 08:43:00 Test Item Value Reference Range Interpretation [...] code = 9.0 mg/dL 8.0-10.5 N CA) [id number] 08:43:00 Test Item Value Reference Range Interpretation Comments PHOSPHOROUS (test code = PHOS) 4.7 MG/DL 2.5-4.9 N CBC W/AUTO [id number] 08:29:00 Test Item Value Reference Range Interpretation [...] (test code NO = MDIFF) BASIC METABOLIC [id number] 07:42:00 Test Item Value Reference Range Interpretation [...] 9.5 mg/dL 8.0-10.5 N CA) BASIC METABOLIC [id number] 09:55:00 Test Item Value Reference Range Interpretation [...] code = 8.7 mg/dL 8.0-10.5 N CA) [id number] 09:55:00 Test Item Value Reference Range Interpretation Comments PHOSPHOROUS (test code = PHOS) 5.2 MG/DL 2.5-4.9 H [id number] 09:55:00 Test Item Value Reference Range Interpretation Comments MAGNESIUM (test code = MAG) 1.89 mg/dL 1.80-2.40 N CBC W/AUTO [id number] 09:28:00 Test Item Value Reference Range Interpretation [...] REQUIRED (test code = MDIFF) CBC W/AUTO [id number] 09:28:00 Test Item Value Reference Range Interpretation [...] (test code NO = MDIFF) ACUTE HEPATITIS [id number] 13:08:00 Test Item Value Reference Range Interpretation [...] COMMENTS: At start of hemodialysisAB HEPATITIS B [id number] 13:08:00 Test Item Value Reference Range Interpretation Comments AB HEPATITIS B 22.1 mIU/mL See_Comment Status of I mmunity SURFACE (test code = HBSAB) Anti-HBs Level --- I nconsis tent with Immun ity 0 .0 - 9.9Consistent w ith Immunity >9.9Performed A t: HD [facility] [address] [id number] jaswinder Peralta MD Ph:[phone] [Automated mess age] The system [employer] generated this result transmitted ref erence range: Immunity >9.9. The reference r za was not used to interpret this result as normal/abnor mal. COMMENTS: At start of hemodialysisACUTE HEPATITIS [id number] 10:00:00 Test Item Value Reference Range Interpretation [...] COMMENTS: At start of hemodialysisAB HEPATITIS B [id number] 10:00:00 Test Item Value Reference Range Interpretation Comments AB HEPATITIS B SURFACE (test code = HBSAB) COMMENTS: At start of hemodialysisBASIC METABOLIC [id number] 09:23:00 Test Item Value Reference Range Interpretation [...] 8.5 mg/dL 8.0-10.5 N CA) CBC W/AUTO [id number] 09:16:00 Test Item Value Reference Range Interpretation [...] (test code NO = MDIFF) RENAL FUNCTION [id number] 06:58:00 Test Item Value Reference Range Interpretation [...] code = 3.0 MG/DL 2.5-4.9 N PHOS) [id number] 06:58:00 Test Item Value Reference Range Interpretation Comments MAGNESIUM (test code = MAG) 1.81 mg/dL 1.80-2.40 N CBC W/AUTO [id number] 06:49:00 Test Item Value Reference Range Interpretation [...] (test code NO = MDIFF) CBC W/AUTO [id number] 06:45:00 Test Item Value Reference Range Interpretation [...] code = MDIFF) - CT HEAD/BRAIN W/O [id number] 04:29:00 [facility] : 1945 Sex: M Name: DARIEN HUYNH [facility] : 1945 Age/S: 74 / M [address] [place] [address] Unit #: [id number] Loc: [place] [address] Phys: [facility]usto [facility]ino [id number] Dis Date: Status: ADM IN PHONE #:[phone] Exam Date: 05/13/2020 0414 FAX #: [phone] Reason: TRAUMA EXAMS: CPT CODE: [id number] CT HEAD/BRAIN W/O CONT 41367 STUDY: - CT HEAD/BRAIN W/O CONT 05/13/2020 5:00 AM Ordering Physician: Fausto Espino MD Patient Name: DARIEN HUYNH MR: [id number] : 1945; Age: 74 years y/o Male [...] 1 Signed Report (CONTINUED) Name: DARIEN HUYNH [facility] : 1945 Age/S: 74 / M [address] [place] [address] Blvd Unit #: [id number] Loc: [place] [address] Phys: Fausto Espino MD Acct: [id number] Dis Date: Status: ADM IN PHONE #: [phone] Exam Date: FAX #: [phone] Reason: TRAUMA EXAMS: CPT CODE: [id number] CT HEAD/BRAINW/O CONT 76279 <Continued> MASTOIDS: Clear. ORBITS: The globes are [...] (428) [email or web address] Orig Print D/T: S: 05/13/2020 (2245) PAGE 2 Signed Report- CT HEAD/BRAIN W/O [id number] 04:29:00 [facility] : 1945 Sex: M Name: DARIEN HUYNH [facility] : 1945 Age/S: 74 / M [address] [place] [address] Unit #: [id number] Loc: [place] [address] Phys: [facility]usto [id number] Dis Date: Status: DIS IN PHONE #:[phone] Exam Date: 05/13/2020 [facility] FAX #: [phone] Reason: TRAUMA EXAMS: CPT CODE: [id number] CT HEAD/BRAIN W/O CONT 33344 STUDY: - CT HEAD/BRAIN W/O CONT 05/13/2020 5:00 AM Ordering Physician: Fausto Espino MD Patient Name: DARIEN HUYNH MR: [id number] : 1945; Age: 74 years y/o Male [...] 1 Signed Report (CONTINUED) [facility] [place] : 1945 Age/S: 74 / M [address] [place] [address] Blvd Unit #: [id number] Loc: [place] [address] Phys: Fausto Espino MD Acct: [id number] Dis Date: Status: DIS IN PHONE #: [phone] Exam Date: FAX #: [phone] Reason: TRAUMA EXAMS: CPT CODE: [id number] CT HEAD/BRAINW/O CONT 64458 <Continued> MASTOIDS: Clear. ORBITS: The globes are [...] CC: Fausto Espino MD; Bennett Farnsworth MD Technologist:Renetta RT(R)(CT); Edgar CTDI: DLP: Trnscb Date/Time: 05/13/2020 (428) Michael.TP6 Orig Print D/T: S: 05/13/2020 (1387) PAGE 2 Signed ReportCOVID 19 Asymptomatic IH [id number] 03:09:00 Test Item Value Reference Range Interpretation [...] high or waivedcomplexit y tests. BASIC METABOLIC [id number] 02:14:00 Test Item Value Reference Range Interpretation [...] 8.5 mg/dL 8.0-10.5 N CA) HEPATIC FUNCTION [id number] 02:14:00 Test Item Value Reference Range Interpretation [...] 112 IUnit/L 20-125 N code = ALKP) [id number] 02:14:00 Test Item Value Reference Range Interpretation Comments LIPASE (test code = LIP) 185 U/L 13-57 H [id number] 02:14:00 Test Item Value Reference Range Interpretation [...] or Legal orEmployment ev aluation purposes. PROTHROMBIN [id number] 02:11:00 Test Item Value Reference Range Interpretation [...] o prevent recurre nt infarct). THROMBOPLASTIN TIME [id number] 02:11:00 Test Item Value Reference Range Interpretation Comments THROMBOPLASTIN TIME 31.8 Seconds 25.0-39.5 N Ther apeutic PARTIAL (test code = Range: 50.4 - 88.3 PTT) Seconds Effective 05/27/2018 PROTHROMBIN [id number] 02:10:00 Test Item Value Reference Range Interpretation [...] o prevent recurre nt infarct). THROMBOPLASTIN TIME [id number] 02:10:00 Test Item Value Reference Range Interpretation Comments THROMBOPLASTIN TIME PARTIAL (test Seconds 25.0-39.5 code = PTT) CBC W/AUTO [id number] 01:59:00 Test Item Value Reference Range Interpretation [...] NO = MDIFF) - CT HEAD/BRAIN W/O [id number] 23:15:00 [facility] 1945 Sex: M Name: DARIEN HUYNH [facility] : 1945 Age/S: 74 / M [address] Unit #: [id number] Loc: [place] [address] Phys: Undefined Provider Acct: [id number] Dis Date: Status: REG REF PHONE #: [phone] Exam Date: 05/12/2020 5827 FAX #: Reason: s/p fall Report Has Been Amended EXAMS: CPT: [id number] CT HEAD/BRAIN W/O CONT 84983 Addendum - 05/12/2020 SIGNED 05/12/[address]: [id number]/CTHDBRWO Findings were notified to lodging house keeper Huyen at 11:15 PM on 05/12/2020. at 8298 Reported and signed by: Kaela Lindsey M.D. Transcribed: 05/12/2020 (7826) [email or web address] Report EXAM: - CT HEAD/BRAIN W/O CONT [...] HUYNH : 1945 Age/S: 74 / M [address] Unit #: [id number] Loc: [place] X[place] Phys: Undefined Provider Acct: [id number] Dis Date: Status: REG REF PHONE #: [phone] Exam Date: 05/12/20202213 FAX #: Reason: s/p fall Report Has Been Amended EXAMS: CPT: [id number] CT HEAD/BRAIN W/O CONT 32657 <Continued> frontoparietal lobe without midline shift or [...] PAGE 2 Signed Report- CT HEAD/BRAIN W/O [id number] 23:15:00 [facility] 1945 Sex: M Name: DARIEN HUYNH [facility] : 1945 Age/S: 74 / M [address] Unit #: [id number] Loc: [place] [address] Phys: Undefined Provider Acct: [id number] Dis Date: Status: REG REF PHONE #: [phone] Exam Date: 05/12/2020 FAX #: Reason: s/p fall Report Has Been Amended EXAMS: CPT: [id number] CT HEAD/BRAIN W/O CONT 09344 Addendum - 05/12/2020 SIGNED 05/12/2020 ADDENDUM: [id number] CT/CTHDBRWO Findings were notified to lodging house keeper Huyen at 11:15 PM on 05/12/2020. at [...] HUYNH : 1945 Age/S: 74 / M [address] Unit #: [id number] Loc: [place] My65547 Phys: Undefined Provider Acct: [id number] Dis Date: Status: REG REF PHONE #: [phone] Exam Date: 05/12/20202213 FAX #: Reason: s/p fall Report Has Been Amended EXAMS: CPT: [id number] CT HEAD/BRAIN W/O CONT 07331 <Continued> frontoparietal lobe without midline shift or [...] PAGE 2 Signed Report- CT HEAD/BRAIN W/O [id number] 22:51:00 [facility] 1945 Sex: M Name: DARIEN HUYNH [facility] : 1945 Age/S: 74 / M [address] Unit #: [id number] Loc: [place] [address] Phys: Undefined Provider Acct: [id number] Dis Date: Status: REG REF PHONE #: [phone] Exam Date: 05/12/20200 FAX #: Reason: s/p fall EXAMS: CPT: [id number] CT HEAD/BRAIN W/O CONT 15771 EXAM: -CT HEAD/BRAIN W/O CONT LOCATION: H61 [...] HUYNH : 1945 Age/S: 74 / M [address] Unit #: [id number] Loc: [place] [address] Phys: Undefined Provider Acct: [id number] Dis Date: Status: REG REF PHONE #: [phone] Exam Date: 05/12/20202213 FAX #: Reason: s/p fall EXAMS: CPT: [id number] CT HEAD/BRAIN W/O CONT 44004 <Continued> Electronically Signedby Armida Lindsey on 05/12/2020 at 2251 Reported and signed by: Kaela Lindsey M.D. CC: Technologist:RT Sharon(R)(CT); ... CTDI: DLP: Trnscb Date/Time: 05/12/2020 (2250) t.RYANR.TH15 Orig Print D/T: S: 05/12/2020 (2254) PAGE 2 Signed Report- CT C-SPINE W/O [id number] 22:40:00 [facility] 1945 Sex: M Name: DARIEN HUYNH : 1945 Age/S: 74 / M [address] Unit #: [id number] Loc: [place] [address] Phys: Undefined Provider Acct: [id number] Dis Date: Status: REG REF PHONE #: [phone] Exam Date: 05/12/20202213 FAX #: Reason: s/p fall EXAMS: CPT: [id number] CT C-SPINE W/O CONT 95178 EXAM: -CT C-SPINE W/O CONT LOCATION: H61 [...] 1 Signed Report (CONTINUED) Name: DARIEN HUYNH [facility] [place] : 1945 Age/S: 74 / M [address] Unit #: [id number] Loc: [place] [address] Phys: Undefined Provider Acct: [id number] Dis Date: Status: REG REF PHONE #: [phone] Exam Date: 05/12/20202213 FAX #: Reason: s/p fall EXAMS: CPT: [id number] CT C- SPINE W/O CONT 04547 <Continued> spinal canal stenosis. C3-C4: Diffuse disc [...] Sharon(Artie)(CT); ... CTDI: DLP: Trnscb Date/Time: 05/12/2020 (2239) t.SDR.TH15 Orig Print D/T: S: 05/12/2020 (0973) PAGE 2 Signed Report- CT C-SPINE W/O [id number] 22:40:00 [facility] 1945 Sex: M Name: DARIEN HUYNH : 1945 Age/S: 74 / M [address] Unit #: [id number] Loc: [place] [address] Phys: Undefined Provider Acct: [id number] Dis Date: Status: REG REF PHONE #: [phone] Exam Date: 05/12/2020 7485 FAX #: Reason: s/p fall EXAMS: CPT: [id number] CT C-SPINE W/O CONT 64534 EXAM: -CT C-SPINE W/O CONT LOCATION: H61 [...] HUYNH : 1945 Age/S: 74 / M [address] Unit #: [id number] Loc: [place] [address] Phys: Undefined Provider Acct: [id number] Dis Date: Status: REG REF PHONE #: [phone] Exam Date: 05/12/20204 FAX #: Reason: s/p fall EXAMS: CPT: [id number] CT C- SPINE W/O CONT 34686 <Continued> spinal canal stenosis. C3-C4: Diffuse disc [...] Sharon(Artie)(CT); ... CTDI: DLP: Trnscb Date/Time: 05/12/2020 (2239) CarlitoTH15 Orig Print D/T: S: 05/12/2020 (9712) PAGE 2 Signed ReportAFB [id number] 05:13:59 Test Item Value Reference Range Interpretation Comments AFB culture isolate No growth after 6 (test code = 543-9) weeks of incubation. Carissa Perez tvgyyey2498-18-76 06:15:49 Test Item Value Reference Range Interpretation Comments Fungus culture isolate No growth after 4 (test code = 1441) weeks of incubation. [facility] 1 [id number] 21:39:42EXAMINATION: OR FL < 1 HOUR C-arm [...] be issued by the physician performing the procedure.1D2[facility]_03[facility] Anaerobic [id number] 14:47:42 Test Item Value Reference Range Interpretation Comments Anaerobic culture No anaerobic organisms isolate (test code = isolated. 552) [facility] CenterAFB [id number] 07:48:01 Test Item Value Reference Range Interpretation Comments AFB stain (test code = No acid fast bacilli 676-7) (AFB) seen. [facility] [id number] 07:48:01 Test Item Value Reference Range Interpretation Comments Aerobic culture isolate No growth after 3 (test code = 498) days. [facility] CenterFungus [id number] 07:48:01 Test Item Value Reference Range Interpretation Comments Fungus smear (test code = No fungi observed. 1443) [facility] [id number] 07:48:01Gram stain isolateFew WBC'sNo organisms seen Comment: Specimen InformationSpecimen Source: TissueSpecimen Site: Femur: Right femoral canal tissue [facility] [id number] 21:19:54 Test Item Value Reference Range Interpretation Comments Case number (test code = [id number]) Surgical pathology See link below for report (test code = PDF Lab Report 2255) Result status (test code This is Final Report = [id number]) for [id number] Carissa Armijo carotid [id number] 00:39:00 [facility] Carotid Artery Duplex Report [address] [place] [address] For it quality assurance analyst purposes, the categorization of the degree of the stenosis of this exam is based on criteria described in the IAC carotid stenosis grading white paper( www.intersocietal.org/Vascular) and Shagufta Andrews., Ritu Armendariz., et al. Carotid artery stenosis: maya-scale and Doppler US diagnosis--Society of Radiologists in Ultrasound Consensus Conference. Radiology. 2003 Nov; 229(2):340-6. Pat.Name: DARIEN HUYNH Pat.ID: [id number] St.Date: 03/23/2020 Refer.MD: BEAR MARIEE MD Exam Time: 11:25:00 AM Study Type:Carotid Height: 68in Weight: 186lb BSA: 1.98 m2 Age: 9 1945,74Y Sex: MALE Sonogrphr: NOEMI Chapman Pat. Stat.:Inpatient Room: [address] Vol: BE, CPT - 4: 21635 Echo Event ID:[id number] Order ID: [id number] Reason for Study:Cervical bruit, no prior carotid [...] EDV 23 cm/sLeft ICA Mid ICA Mid XYK437 cm/s Left ICA Prox ICA Prox PSV 125 cm/s Left Subclavian Subclavian PSV 312 cm/s Subclavian EDV 66.6 cm/sRight SCA Prox SCA Prox PSV 172 cm/s SCA Prox EDV 22 cm/sLeft SCA Prox SCA Prox PSV 312 cm/s SCA Prox EDV 66 cm/sRight ICA/CCA Ratio ICA/CCA PSV 1.67 Left ICA/CCA Ratio ICA/CCA PSV 1.14 Signed 03/23/2020 06:39 PMAngel Liang MD, RPVIInterface, Radiology Results In - 16:40 PM CST [facility] Carotid Artery Duplex Report [address] [address] For it quality assurance analyst purposes, the categorization of the degree of the stenosis of this exam is based on criteria described in the IAC carotid stenosis grading white paper( www.intersocietal.org/Vascular) and Shagufta Andrews., Ritu Armendariz., et al. Carotid artery stenosis: maya-scale and Doppler US diagnosis--Society of Radiologists in Ultrasound Consensus Conference. Radiology. 2003 Nov; 229(2):340-6. Pat.Name: DARIEN HUYNH Pat.ID: [id number] .Date: 03/23/2020 Refer.MD: BEAR MARIEE MD Exam Time: 11:25:00 AM Study Type:Carotid Height: 68in Weight: 186lb BSA: 1.98 m2 Age: 9 1945,74Y Sex: MALE Sonogrphr: NOEMI Chapman Pat. Stat.:Inpatient Room: [address] Vol: BE, CPT - 4: 53400 Echo Event ID:[id number] Order ID: [id number] Reason for Study:Cervical bruit, no prior carotid [...] 1.14 Signed 03/23/2020 06:39 PMAngel Liang MD, [facility]2021-02-09 19:25:28Tejal Simpson 03/22/2020 1:45 [address]MA[address] Date/Time: 03/22/2020 1:00 PM Location: OR Performed by: LINEN FOLDER/AAAnesthesiologist: Tahmina Mccloud/LINEN FOLDER/AA: Tejal SimpsonAuthorized by: Liu Mccloud Urgency: ElectiveDifficult [...] First attempt using Sheikh 2 blade by LINEN FOLDER. Second attempt with MD with MAC 3. Grade 3b view, secondary to neck stiffness.Grade 1 view with glidescope. ETT passed atraumatically.[facility] CenterTransthoracic Echocardiogram Complete, (w Contrast, Strain and 3D if needed)2020-03-19 20:20:00 Echocardiography Report [address]Name: DARIEN HUYNH [facility].ID: [id number] .Date: 03/19/2020 Refer.MD: CLINT KING DO Exam Time: 11:43:00 AM Study Type:Routine Echo Height: 68in Weight: 185.61lb BSA: 1.98 m2 Age: [birth year],74Y Sex: MALE BP: 110/57 HR: 70 bpm Sonogrphr: NILSON Conde Pat. Stat.:Inpatient Room: [facility] Study Status:Final Echo Event ID:[id number] Order ID: [id number] Reason for Study:Perioperative function eval without cardiac [...] estimate PA systolic pressure. MEASUREMENTS:------- 2DParasternal Long [place] Ao An 2.2 cm LVPWd 1.3 cm [...] - 03/19/2020 2:20 PM CST Echocardiography Report [address] [place] [address] Pat.Name: DARIEN HUYNH Pat.ID: [id number] St.Date: 03/19/2020 Refer.MD: CLINT KING DO Exam Time: 11:43:00 AM Study Type:Routine Echo Height: 68in Weight:185.61lb BSA: 1.98 m2 Age: 9 1945,74Y Sex: MALE BP: 110/57 HR: 70 bpm Sonogrphr: NILSON Conde Pat. Stat.:Inpatient Room: [facility] Study Status:Final Echo Event ID:[id number] Order ID: [id number] Reason for Study:Perioperative function eval without cardiac [...] estimate PA systolic pressure. MEASUREMENTS: 2DParasternal Long [place] Ao An 2.2 cm LVPWd 1.3 cm [...] 3.7 l/m/m2 Signed 03/19/2020 02:20 Dodie Sarabia M.D.[facility] HospitalI Lower Extremity Wo Contrast [id number] 13:07:30EXAMINATION: MRI LOWER EXTREMITY WO CONTRAST RIGHT [...] medially, beyond the cortex of the tibia.1D2RAD_PS08[facility] THIGH WO CONTRAST [id number] 12:29:55EXAMINATION: MRI KNEE WO CONTRAST RIGHT, MRI [...] with the fluid surrounding the tibial stem. [facility]-[id number] Interface, Radiology Results Incoming - 03/19/2020 6:33 [...] communicate with the fluid surrounding the tibial stem.[id number] [facility] Knee Right Wo [id number] 12:29:55EXAMINATION: MRI KNEE WO CONTRAST RIGHT, MRI [...] with the fluid surrounding the tibial stem. 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 Infection cannot be excluded. There is a joint effusion present. There is no acute fracture or dislocation. There are vascular calcifications. [id number] Interface, Radiology Results 03/18/2020 5:17 PM [...] dislocation. 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 Infection cannot be excluded. Bones are osteopenic. No definite acute fracture is seen. 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 Infection cannot be excluded. Bones are osteopenic. No definite acute fracture is seen.[facility]-[id number] [facility] Center [id number] 02:22:00 Test Item Value Reference Range Interpretation Comments TROPONIN I (test <0.012 See_Comment [Automated code = 0913999995) message] The system which generated this result [...] ? Lab Interpretation Normal (test code = 30121-7) [facility] [id number] 02:20:00 Test Item Value Reference Range Interpretation Comments TROPONIN I (test <0.012 See_Comment [Automated code = 6149633727) message] The system which generated this result [...] ? Lab Interpretation Normal (test code = 86234-3) [facility] Test Item Value Reference Range Interpretation Comments APPEARANCE (test code = Clear Clear 2772946965) COLOR (test code = Yellow Yellow 8394848737) PH (test code = 4.8-8.0 5852758001) SP GRAVITY (test code = 1.003-1.030 0284310211) GLU U QUAL (test code = Normal Normal 9401595365) BLOOD (test code = Negative Negative 0599893729) KETONES (test code = Negative Negative 3668964512) PROTEIN (test code = 100 mg/dL Negative A 2887-8) UROBILIN (test code = Normal Normal 0259887744) BILIRUBIN (test code = Negative Negative 8498634269) NITRITE (test code = Negative Negative 6054275686) LEUK AJ (test code = Negative Negative 7840593560) RBC/HPF (test code = See_Comment H [Autom ated message] 3318668853) The system [employer] generated this result transmit amado reference range : 0 - 3 HPF. The refe rence range was not u sed to interpret th is result as normal/abnormal . WBC/HPF (test code = <1 See_Comment [Autom ated message] 9845133141) The system [employer] generated this result transmit amado reference range : 0 - 5 HPF. The refe rence range was not u sed to interpret th is result as normal/abnormal . BACTERIA (test code = Few Negative A 4723920887) MUCOUS (test code = Slight Negative LPF A 9387721623) SQ EPITH (test code = <1 HPF 6575257559) Lab Interpretation (test Abnormal code = 87260-4) [facility] 00:[facility]00 Test Item Value Reference Range Interpretation Comments APPEARANCE (test code = Clear Clear 3138742698) COLOR (test code = Yellow Yellow 5685761643) PH (test code = 4.8-8.0 0000027577) SP GRAVITY (test code = 1.003-1.030 0810206979) GLU U QUAL (test code = Normal Normal 4529541413) BLOOD (test code = Negative Negative 0364161167) KETONES (test code = Negative Negative 6754329417) PROTEIN (test code = 100 mg/dL Negative A 2887-8) UROBILIN (test code = Normal Normal 6542119982) BILIRUBIN (test code = Negative Negative 4913210613) NITRITE (test code = Negative Negative 4034034990) LEUK AJ (test code = Negative Negative 6992868507) RBC/HPF (test code = See_Comment H [Autom ated message] 2334940100) The system [employer] generated this result transmit amado reference range : 0 - 3 HPF. The refe rence range was not u sed to interpret th is result as normal/abnormal . WBC/HPF (test code = <1 See_Comment [Autom ated message] 0595301265) The system [employer] generated this result transmit amado reference range : 0 - 5 HPF. The refe rence range was not u sed to interpret th is result as normal/abnormal . BACTERIA (test code = Few Negative A 8059859910) MUCOUS (test code = Slight Negative LPF A 0377853535) SQ EPITH (test code = <1 HPF 6208662814) Lab Interpretation (test Abnormal code = 99695-8) [facility] [id number] 23:24:26 No acute cardiopulmonary abnormality. Preliminary Report [...] reviewed this study and agree with theabove report.[facility] [id number] 23:24:26 No acute cardiopulmonary abnormality. Preliminary Report [...] reviewed this study and agree with theabove report.[facility] COMP. METABOLIC PANEL ([id number])2019-11-11 23:16:00 Test Item Value Reference Range Interpretation Comments NA (test code = 137 mmol/L 135-145 4540107078) K (test code = 4.0 mmol/L 3.5-5 9918045044) CL (test code = 94 mmol/L 98-108 L 4857042935) CO2 TOTAL (test code = 29 mmol/L 23-31 3505895732) AGAP (test code = 2-16 8546129202) BUN (test code = 63 mg/dL 7-23 H 0620976776) GLUCOSE (test code = 142 mg/dL 70-110 H 9267324548) CREATININE (test code = 5.82 mg/dL 0.6-1.25 H 8718478930) TOTAL BILI (test code = 0.4 mg/dL 0.1-1.8 9480778013) CALCIUM (test code = 9.8 mg/dL 8.6-10.6 1021054011) T PROTEIN (test code = 7.5 g/dL 6.3-8.2 2962641037) ALBUMIN (test code = 4.2 g/dL 3.5-5 8010746217) ALK PHOS (test code = 100 U/L 34-122 4076850615) ALTv (test code = 14 U/L 5-50 1742-6) AST(SGOT) (test code = 27 U/L 13-40 0697625102) eGFR Calculation mL/min/1.73m2 (Non-) (test code = 0218894303) eGFR Calculation mL/min/1.73m2 () (test code = 3275788490) JACQUELYN (test code = JACQUELYN) Association of [...] tests). Lab Interpretation Abnormal (test code = 81564-3) [facility]2020-[facility]30 23:16:00 Test Item Value Reference Range Interpretation Comments MAGNESIUM (test code = 6194385828) 2.5 mg/dL 1.7-2.4 H Lab Interpretation (test code = Abnormal 56228-9) [facility][id number][facility]-11 23:16:00 Test Item Value Reference Range Interpretation Comments NA (test code = 137 mmol/L 135-145 3387745554) K (test code = 4.0 mmol/L 3.5-5 3529924045) CL (test code = 94 mmol/L 98-108 L 3889800597) CO2 TOTAL (test code = 29 mmol/L 23-31 2424607725) AGAP (test code = 2-16 9733638476) BUN (test code = 63 mg/dL 7-23 H 8668243787) GLUCOSE (test code = 142 mg/dL 70-110 H 4821796439) CREATININE (test code = 5.82 mg/dL 0.6-1.25 H 0178441734) TOTAL BILI (test code = 0.4 mg/dL 0.1-1.3 7584085198) CALCIUM (test code = 9.8 mg/dL 8.6-10.6 5629696106) T PROTEIN (test code = 7.5 g/dL 6.3-8.2 3966484217) ALBUMIN (test code = 4.2 g/dL 3.5-5 8691045441) ALK PHOS (test code = 100 U/L 34-122 8427535646) ALTv (test code = 14 U/L 5-50 1742-6) AST(SGOT) (test code = 27 U/L 13-40 2873069015) eGFR Calculation mL/min/1.73m2 (Non-) (test code = 2171320749) eGFR Calculation mL/min/1.73m2 () (test code = 1815440529) JACQUELYN (test code = JACQUELYN) Association of [...] tests). Lab Interpretation Abnormal (test code = 84775-1) [facility] 23:16:00 Test Item Value Reference Range Interpretation Comments MAGNESIUM (test code = 2323205677) 2.5 mg/dL 1.7-2.4 H Lab Interpretation (test code = Abnormal 69340-7) [facility] WITH [id number] 22:53:00 Test Item Value Reference Range Interpretation Comments WBC (test code = See_Comment [Automated 6690-2) message] The sy stem which generated this result transmitted reference range : 4.20 - 10.70 10*3/?L. The reference range was not used to interpret this result as normal/abnormal . RBC (test code = See_Comment L [Automated 789-8) message] The sy stem which generated this [...] RDW-SD (test code = 46.1 fL 38.5-51.6 59900-3) RDW-CV (test code = 13.9 % 12.1-15.4 788-0) PLT (test code = See_Comment [Automated 777-3) message] The sy stem which generated this result transmitted reference range : 150 - 328 10*3/ ?L. The reference r za was not used to interpret this result as normal/abnormal . MPV (test code = 8.7 fL 9.8-13 L 48502-1) NRBC/100 WBC (test See_Comment [Automat ed code = 0101126843) message] The system which generated this result transmitted reference range : 0.0 - 10.0 /100 WBCs. The refer ence range was not u sed to interpret th is result as normal/abnormal . NRBC x10^3 (test code <0.01 See_Comment [Auto mated = 1572515920) message] The s ystem which generated this result transmitted reference range : 10*3/?L. The reference range was not used to interpret this result as normal/abnormal . GRAN MAT (NEUT) % 79.0 % (test code = 770-8) IMM GRAN % (test code 0.50 % = 6206101143) LYMPH % (test code = 7.3 % 736-9) MONO % (test code = 9.1 % 5905-5) EOS % (test code = 3.8 % 713-8) BASO % (test code = 0.3 % 706-2) GRAN MAT x10^3(ANC) 6.93 10*3/uL 1.99-6.95 (test code = 0419672508) IMM GRAN x10^3 (test 0.04 10*3/uL 0-0.06 code = 4464100009) LYMPH x10^3 (test code 0.64 10*3/uL 1.09-3.23 L = 731-0) MONO x10^3 (test code 0.80 10*3/uL 0.36-1.02 = 742-7) EOS x10^3 (test code = 0.33 10*3/uL 0.06-0.53 711-2) BASO x10^3 (test code 0.03 10*3/uL 0.01-0.09 = 704-7) Lab Interpretation Abnormal (test code = 56220-1) [facility] WITH WPQH3392-03-37 22:53:00 Test Item Value Reference Range Interpretation Comments WBC (test code = See_Comment [Automated 6690-2) message] The sy stem which generated this result transmitted reference range : 4.20 - 10.70 10*3/?L. The reference range was not used to interpret this result as normal/abnormal . RBC (test code = See_Comment L [Automated 449-8) message] The sy stem which generated this [...] RDW-SD (test code = 46.1 fL 38.5-51.6 83753-5) RDW-CV (test code = 13.9 % 12.1-15.4 788-0) PLT (test code = See_Comment [Automated 777-3) message] The sy stem which generated this result transmitted reference range : 150 - 328 10*3/ ?L. The reference r za was not used to interpret this result as normal/abnormal . MPV (test code = 8.7 fL 9.8-13 L 26742-8) NRBC/100 WBC (test See_Comment [Automat ed code = 2324341641) message] The system which generated this result transmitted reference range : 0.0 - 10.0 /100 WBCs. The refer ence range was not u sed to interpret th is result as normal/abnormal . NRBC x10^3 (test code <0.01 See_Comment [Auto mated = 5662418965) message] The s ystem which generated this result transmitted reference range : 10*3/?L. The reference range was not used to interpret this result as normal/abnormal . GRAN MAT (NEUT) % 79.0 % (test code = 770-8) IMM GRAN % (test code 0.50 % = 0677861752) LYMPH % (test code = 7.3 % 736-9) MONO % (test code = 9.1 % 5905-5) EOS % (test code = 3.8 % 713-8) BASO % (test code = 0.3 % 706-2) GRAN MAT x10^3(ANC) 6.93 10*3/uL 1.99-6.95 (test code = 2518073855) IMM GRAN x10^3 (test 0.04 10*3/uL 0-0.06 code = 0579959795) LYMPH x10^3 (test code 0.64 10*3/uL 1.09-3.23 L = 731-0) MONO x10^3 (test code 0.80 10*3/uL 0.36-1.02 = 742-7) EOS x10^3 (test code = 0.33 10*3/uL 0.06-0.53 711-2) BASO x10^3 (test code 0.03 10*3/uL 0.01-0.09 = 704-7) Lab Interpretation Abnormal (test code = 39140-8) [facility]TREM[facility], LOWER WITHOUT CONTRAST, RIGHT 2017-01-25 19:47:00FINAL [...] is recommended. Signed: Jorge Kumar MDReport Verified Date/Time:01/25/2017 19:47:23 Reading Location: [address] Reading Room RAD, HIP, 2 VIEWS, [id number] 19:11:00Reason for exam:->FALLReason for exam:->HIP PAINShould this be performed at the bedside?->NoFINAL REPORT CLINICAL HISTORY: Trauma and pain COMPARISON: None. FINDINGS: Frontal view of the pelvis and a lateral view of the right hip are submitted. There is no acute fracture, malalignment or destructive bony lesion. Surgical clips overlie the right lower abdomen. Signed: Jorge Kumar MDReport Verified Date/Time: 01/25/2017 19:11:49 Reading Location: [address] Reading Room thweymzd0487-27-72 16:35:98480Kybzdevk OzjsbnrUpnpssugd5463-04-18 16:35:80629Wwujhswp LluhulsBwrdtebde9234-70-99 16:35:0032[facility] Apvnvyumm3383-75-26 16:35:11296Pclemjdo FhuygnmPcewbnrgc8473-51-80 16:35:51821 MEQ/LMemorial DiozzkaAkgvjulsw2818-75-78 16:35:004.3 ME[facility]/L[facility] [place] Svyxubycw0989-67-73 16:35:002.5[facility] WbzwvtnUslcwkvxm6592-89-67 16:35:0029 [facility] CohqiefEtuvhgkbw1518-40-23 16:35:00 Test Item Value Reference Range Interpretation Comments BUN/CREAT (test code = BUN/CREAT) 12 1 6-25 [facility] ZhofjoiUkwrycelp3996-07-88 16:35:004.2[facility]annChem[facility] 2014-02-18 16:35:008.9[facility] PejuqhpHqjotdsyb0826-13-94 16:35:0036[facility] DqbkbhvAkhbvtnwy7368-48-31 16:35:0025[facility] XvgxtfsRbjjvyayq3470-24-73 16:35:03274Nnqsubbr LtqdtbiNujrrhtcz6745-57-71 16:35:001.380[facility] Tpiwoacqd1078-10-90 16:35:002.00[facility] RuqkpsbCrbgxfkhki1579-95-28 16:35:00 13.9[facility] SppxxcaIcvfewxvzt9711-56-69 16:35:0041.4[facility]annHematology 2014-02-18 16:35:54543 K/CMMMemorial WtoqpiyVtrhaqwx9780-35-67 16:35:00Non ReactiveMemorial ItexvwbZtrgjxllo1822-12-74 16:35:65999Lwwydsvc [facility]Chem[facility] 2014-02-18 16:35:41756Obgbotmf XfbglmpRhopsdfwz6166-68-28 16:35:0032[facility] XpwiursPnlbwarke1062-61-71 16:35:36648Ilrpwzsy SvdgfsxNtxgbdhje9828-29-90 16:35:08280 MEQ/LMemorial RuxpgvgXjzucpnlh0038-21-73 16:35:004.3 MEQ/LMemorial KtgejcyOwsnaetpd0241-75-97 16:35:002.5[facility] YqxpvdzZkibkkcqd6115-94-11 16:35:0029[facility] WjnynodGilrpbdlk7554-31-44 16:35:00 Test Item Value Reference Range Interpretation Comments BUN/CREAT (test code = BUN/CREAT) 12 1 6-25 [facility] RrbpdmgIxrekrbwk8684-52-62 16:35:004.2[facility] 2014-02-18 16:35:008.9[facility] WeqlonoBizzbgjqd7521-05-57 16:35:0036[facility] EfszmwkOtnvzjrli0119-51-81 16:35:0025[facility] CwoyampSjgpanfga1854-32-17 16:35:76430Igazsouo YnhezhcKorlovmdq3537-99-37 16:35:001.380[facility] [place] Zasuyzfcc4686-33-99 16:35:002.00[facility] UoqfihcRxwqvsluic2822-34-59 16:35:00 13.9[facility] ZfuvpxlBrtabutekh3682-37-72 16:35:0041.4[facility]annHematology 2014-02-18 16:35:56130 K/CMMMemorial TjbvpjbLdqnysfa6550-13-97 16:35:00Non ReactiveMemorial ApyivweVifwlncdw6938-13-98 20:45:91921Tkvohcvk [facility]Chem[facility] 2013-01-23 20:45:65490Upxsrbcr NprluykQxvxnzbas6641-64-95 20:45:0023[facility] HjrndqtKbyxousdk5460-46-30 20:45:00670Mlpexjat SfxhibcLzrmmypxd1499-64-85 20:45:86736Yiariogp EptoiwoKxjdsyghh5943-98-13 20:45:0023[facility] Paarwaixo8664-86-40 20:45:00See Note mg/dLMemorial XwvgsgiXgjlmjdqm7696-83-88 20:45:99304 MEQ/LMemorial TzsjdbxLoifkdndt8034-03-41 20:45:004.5 MEQ/LMemorial OqybryxZhizapaux0502-98-15 20:45:001.8[facility] JnuyklmDsgbmiihy1913-91-70 20:45:0030[facility] RcnevxjSxzdxsvdj6712-90-89 20:45:00 Test Item Value Reference Range Interpretation Comments BUN/CREAT (test code = BUN/CREAT) 17 1 6-25 [facility] BdodzoiTokfvxpve7299-84-54 20:45:004.2[facility] 2013-01-23 20:45:009.3[facility] UadbwvkCvwzxvkbb3876-69-19 20:45:0031[facility] RicrtfjHblcwmohj1682-24-77 20:45:0020[facility] HaaihjdLnopctcht7034-96-28 20:45:69293Delkjyhd NujuawuQalgquwop4239-97-33 20:45:001.390[facility] Nnwmvgbxw6333-41-79 20:45:001.33[facility] ZdpnlhkIxrmttslk6772-71-70 20:45:20785 [facility] DmkgtgxDwrfjnndx2013-71-58 20:45:62122Xxiudixq [facility] 2013-01-23 20:45:0023[facility] FmcnihxJqyqdzihh0123-84-49 20:45:56617Ucgvvaez QnlwxwxJcvjtpbio0186-44-23 20:45:48093Tyrqmbih VkorqjrRmprbbntd0364-81-94 20:45:0023[facility] JaevyliNlsdzhdwd4814-57-24 20:45:00See Note mg/dLMemorial SzwjwcyDcgvcergn2017-04-73 20:45:64522 MEQ/LMemorial ZmdkdtvXkyxgjqui5400-16-80 20:45:004.5 MEQ/LMemorial ZiowblqFukdgnzea8619-01-65 20:45:001.8[facility] [place] Rbdbdehzu4821-29-06 20:45:0030[facility] MbxorlhMyjlexlfr9183-93-61 20:45:00 Test Item Value Reference Range Interpretation Comments BUN/CREAT (test code = BUN/CREAT) 17 1 6-25 [facility] IfpfptpUfzyvpzct0898-78-81 20:45:004.2[facility]annChem[facility] 2013-01-23 20:45:009.3[facility] DkkwahiZivhabfzy7393-99-42 20:45:0031[facility] EzpwjoqRflibdbfw7448-07-52 20:45:0020[facility] WqopnnsZdjkqaybb7075-72-97 20:45:03893Qrhysuts HeubcqtDzpbnuylw4861-13-36 20:45:001.390[facility] [place] Uhxavyouo5353-24-59 20:45:001.33[facility] BulrkexEpatiigkj9196-53-73 15:12:571.57 [facility] CevoiknTgdhaxcrj5425-67-39 15:12:571.57[facility]Chem[facility] 2012-04-02 15:12:571.57[facility] PsobaxcIlpgfbwiq8415-60-64 15:12:571.57[facility]"
[2021-05-16 12:19] LABS: Absolute Lymphocytes (CBC) 0.5 K/uL (0.7-4.9); MPV 6.3 fL (7.6-11.3); RBC Red Blood Cell Count 3.03 M/uL (4.33-5.43)
[2021-05-16 12:40] LABS: Albumin 3.7 g/dL (3.4-5.0); Bilirubin Total 0.4 mg/dL (0.2-1.0); Potassium 3.7 mmol/L (3.5-5.1); Protein, Total 8.1 g/dL (6.4-8.2); Troponin High Sensitivity 48.8 pg/mL (<58.9)
--- NOTE | 2021-05-16 12:46 | RAD REPORT ---
EXAM DESCRIPTION: RAD - Chest Single View - 05/16/2021 12:41 pm CLINICAL HISTORY: weakness Chest pain. COMPARISON: Chest Single View dated 02/20/2021; Chest Single View dated 02/09/2021; Chest Single View dated 01/06/2021; Chest Single View dated 10/01/2020 FINDINGS: Portable technique limits examination quality. Mild bilateral pulmonary opacities are present likely representing viral infection or pulmonary edema . The heart is moderately enlarged. No displaced fractures.
[2021-05-16] MEDS ORDERED: ACETAMINOPHEN 325 MG TABLET ONE (13:03)
[2021-05-16] MEDS ORDERED: LORazepam 2 MG/ML VIAL ONE (13:56)
[2021-05-16 14:10] LABS: SARS-COV-2 RT PCR NEGATIVE (NEGATIVE)
[2021-05-16 14:15] LABS: Urine Blood 1+ (Negative); Urine Glucose Negative (Negative); Urine Protein 3+ (Negative); Urine Specific Gravity 1.025 (1.005-1.030); Urine pH 6.5 (5.0-7.0)
--- NOTE | 2021-05-16 14:25 | ER ---
Nurse's Notes [facility] Name: Amando Grossman Age: 75 yrs Sex: Male : 1945 Arrival Date: 05/16/2021 Time: 11:35 Bed 30 Private MD: Diagnosis: viral syndrome Presentation: 05/16 11:37 Chief complaint: EMS states: Pt woke up this morning and stated was feeling 'blah'. vg1 Denies pain. EMS states home health nurse stated 'the last time he felt like this was when he took Ambian and it just lasted longer'. EMS stated pt had dialysis yesterday. Pt stated had urinary incontinence earlier today. Pt was also recently exposed to someone who had covid. Coronavirus screen: Vaccine status: Patient reports receiving the 2nd dose of the covid vaccine. Ebola Screen: Patient negative for fever greater than or equal to 101.5 degrees Fahrenheit, and additional compatible Ebola Virus Disease symptoms. Initial Sepsis Screen: Does the patient meet any 2 criteria? No. Patient's initial sepsis screen is negative. Does the patient have a suspected source of infection? No. Patient's initial sepsis screen is negative. Risk Assessment: Do you want to hurt yourself or someone else? Patient reports no desire to harm self or others. Onset of symptoms was May 16, 2021. 11:37 Method Of Arrival: EMS: [facility] vg1 11:37 Acuity: KELLY 3 vg1 Triage Assessment: 11:41 General: Appears in no apparent distress. uncomfortable, Behavior is calm, cooperative. vg1 Pain: Denies pain. EENT: No signs and/or symptoms were reported regarding the EENT system. Neuro: Level of Consciousness is awake, alert, obeys commands, Oriented to person, place, time, situation. Cardiovascular: Patient's skin is warm and dry. Dialysis shunt: in the left arm, with palpable thrill, with auscultated bruit, with no erythema, with no edema, no bleeding noted. Respiratory: Airway is patent Respiratory effort is even, unlabored. GI: No signs and/or symptoms were reported involving the gastrointestinal system. : Reports incontinence. Derm: Skin is intact. Musculoskeletal: Amputation of AKA. Historical: - Allergies: 11:41 "statins"; vg1 11:41 Iodine; topical is ok; vg1 11:41 PENICILLINS; vg1 11:41 Shellfish Containing Products; vg1 - Home Meds: 11:41 aspirin 81 mg Oral chew 1 tab once daily [Active]; clopidogrel 75 mg Oral tab 1 tab vg1 once daily [Active]; metoprolol tartrate 50 mg Oral tab 1 tab 2 times per day [Active]; losartan oral [Active]; tamsulosin 0.4 mg Oral cp24 1 cap once daily [Active]; gabapentin oral [Active]; Furosemide Oral [Active]; WelChol 3.75 gram Oral pwpk 1 packet twice a day [Active]; sertraline oral [Active]; pantoprazole oral [Active]; Dialyvite oral [Active]; zolpidem 10 mg Oral tab 1 tab nightly [Active]; fluticasone inhalation [Active]; - PMHx: 11:41 Anxiety; cholesterol; Depression; Dialysis <M and F; GERD; High Cholesterol; vg1 Hypertension; mascular degeneration; Urinary Urgency; - PSHx: 11:41 CABG; Cardaic stent; Carpal tunnel surgery, bilateral; colon resection; Replacement of vg1 total knee joint; Bilateral; right AKA; Right Nephrectomy; - Immunization history:: Client reports receiving the 2nd dose of the Covid vaccine. - Social history:: Smoking status: Patient denies any tobacco usage or history of. Screenin:46 Abuse screen: Denies threats or abuse. Nutritional screening: No deficits noted. vg1 Tuberculosis screening: No symptoms or risk factors identified. Fall Risk No fall in past 12 months (0 pts). No secondary diagnosis (0 pts). IV access (20 points). Ambulatory Aid- Crutches/Cane/Walker (15 pts). Gait- Normal/Bed Rest/Wheelchair (0 pts) Mental Status- Oriented to own ability (0 pts). Total Kamara Fall Scale indicates Low Risk Score (25-44 pts). Fall prevention measures have been instituted. Side Rails Up X 2 Placed close to Nursing Station. Assessment: 11:46 Reassessment: SEE TRIAGE. vg1 12:44 Reassessment: pt reporting having anxiety. provider notified. no new orders at this jd3 time. 12:53 Reassessment: Patient appears in no apparent distress at this time. No changes from vg1 previously documented assessment. Patient and/or family updated on plan of care and expected duration. Pain level reassessed. Patient is alert, oriented x 3, equal unlabored respirations, skin warm/dry/pink. pt reporting generalized body pain; provider notified. 12:55 Reassessment: Received VO from Nolberto to administer Tylenol 650 mg PO x1. vg1 13:58 Reassessment: Patient appears in no apparent distress at this time. Patient and/or vg1 family updated on plan of care and expected duration. Pain level reassessed. Patient is alert, oriented x 3, equal unlabored respirations, skin warm/dry/pink. Vital Signs: 11:37 BP 162 / 67; Pulse 80; Resp 16; Temp 98.6(TE); Pulse Ox 97% on R/A; Weight 90.72 kg; vg1 Height 5 ft. 8 in. (172.72 cm); Pain 0/10; 13:04 BP 173 / 72; Pulse 75; Resp 17; Pulse Ox 98% on R/A; vg1 13:58 BP 179 / 68; Pulse 76; Resp 19; Pulse Ox 96% on R/A; vg1 14:39 BP 149 / 53; Pulse 72; Resp 18; Pulse Ox 97% on R/A; vg1 11:37 Body Mass Index 30.41 (90.72 kg, 172.72 cm) vg1 ED Course: 11:35 Patient arrived in ED. ds1 11:37 Kelly Dewitt, RN is Primary Nurse. vg1 11:41 Triage completed. vg1 11:41 Arm band placed on. vg1 11:46 Patient has correct armband on for positive identification. Bed in low position. Call vg1 light in reach. Side rails up X2. tactical debriefer officer on. Pulse ox on. NIBP on. 11:50 Jay Arvizu MD is Attending Physician. sp3 12:15 Inserted saline lock: 18 gauge in right antecubital area, using aseptic technique. vg1 ,using aseptic technique. Completed by [place] [employer] supervisor. 12:15 Initial lab(s) drawn, by me, sent to lab. EKG done, by ED staff, reviewed by Jay Arvizu MD. Inserted saline lock: 18 gauge in right antecubital area, using aseptic technique. Blood collected. 12:16 Warm blanket given. Pillow given. 5 12:16 CBC with Diff Sent. mh5 12:16 Troponin HS Sent. 5 12:17 CMP Sent. 5 12:43 XRAY Chest (1 view) In Process Unspecified. EDMS 12:43 COVID swab sent to lab. Flu and/or RSV swab sent to lab. jd3 14:46 No provider procedures requiring assistance completed. IV discontinued, intact, vg1 bleeding controlled, No redness/swelling at site. Pressure dressing applied. Administered Medications: 13:02 Drug: Tylenol 650 mg Route: PO; vg1 13:58 Follow up: Response: No adverse reaction vg1 13:02 Not Given (Duplicate Order): Tylenol 650 mg PO once vg1 13:58 Drug: Ativan (LORazepam) 1 mg Route: IVP; Site: right antecubital; vg1 14:39 Follow up: Response: No adverse reaction; Marked relief of symptoms vg1 Outcome: 14:24 Discharge ordered by . sp3 14:46 Discharged to home via wheelchair, with family. vg1 14:46 Condition: good 14:46 Discharge instructions given to patient, Instructed on discharge instructions, follow up and referral plans. Demonstrated understanding of instructions, follow-up care. 14:47 Patient left the ED. vg1 Signatures: Dispatcher [employer] [facility] Wani dsShaila Wilson 5 Bony Valiente RN RN jd3 Garcia, Victoria, RN RN vg1 Jay Arvizu MD MD sp3
--- NOTE | 2021-05-16 14:25 | EDPHYS ---
Physician Documentation [facility] Name: Amando Grossman Age: 75 yrs Sex: Male : 1945 Arrival Date: 05/16/2021 Time: 11:35 Bed 30 Private MD: ED Physician Jay Arvizu HPI: 05/16 12:03 This 75 yrs old Male presents to ER via EMS with complaints of Not Feeling Well. sp3 12:03 75-year-old male with a history of end-stage renal disease on hemodialysis, sp3 hyperlipidemia, depression, presents to the ED with chief complaint "weak and pain all over" which has been going on for the last 48 to 72 hours. Patient states that this is happened to him in the past when he has taken Ambien and he did take an Ambien prior to his dialysis today. He denies chest pain, shortness of breath, abdominal pain, syncope, rash, fever, URI symptoms, known sick contacts, or any other findings at this time. He does have mild nausea but other than that his review of systems are negative. Patient is very vague of his symptoms.. Historical: - Allergies: 11:41 "statins"; vg1 11:41 Iodine; topical is ok; vg1 11:41 PENICILLINS; vg1 11:41 Shellfish Containing Products; vg1 - Home Meds: 11:41 aspirin 81 mg Oral chew 1 tab once daily [Active]; clopidogrel 75 mg Oral tab 1 tab vg1 once daily [Active]; metoprolol tartrate 50 mg Oral tab 1 tab 2 times per day [Active]; losartan oral [Active]; tamsulosin 0.4 mg Oral cp24 1 cap once daily [Active]; gabapentin oral [Active]; Furosemide Oral [Active]; WelChol 3.75 gram Oral pwpk 1 packet twice a day [Active]; sertraline oral [Active]; pantoprazole oral [Active]; Dialyvite oral [Active]; zolpidem 10 mg Oral tab 1 tab nightly [Active]; fluticasone inhalation [Active]; - PMHx: 11:41 Anxiety; cholesterol; Depression; Dialysis <M and F; GERD; High Cholesterol; vg1 Hypertension; mascular degeneration; Urinary Urgency; - PSHx: 11:41 CABG; Cardaic stent; Carpal tunnel surgery, bilateral; colon resection; Replacement of vg1 total knee joint; Bilateral; right AKA; Right Nephrectomy; - Immunization history:: Client reports receiving the 2nd dose of the Covid vaccine. - Social history:: Smoking status: Patient denies any tobacco usage or history of. ROS: 12:04 Constitutional: Negative for fever, chills, and weight loss, Eyes: Negative for injury, sp3 pain, redness, and discharge, ENT: Negative for injury, pain, and discharge, Neck: Negative for injury, pain, and swelling, Cardiovascular: Negative for chest pain, palpitations, and edema, Respiratory: Negative for shortness of breath, cough, wheezing, and pleuritic chest pain, Abdomen/GI: Negative for abdominal pain, nausea, vomiting, diarrhea, and constipation, MS/Extremity: Negative for injury and deformity, Skin: Negative for injury, rash, and discoloration, Neuro: Negative for headache, weakness, numbness, tingling, and seizure, Psych: Negative for depression, anxiety, suicide ideation, homicidal ideation, and hallucinations, Allergy/Immunology: Negative for hives, rash, and allergies, Endocrine: Negative for neck swelling, polydipsia, polyuria, polyphagia, and marked weight changes. 12:04 All other systems are negative. Exam: 12:04 Constitutional: This is a well developed, well nourished patient who is awake, alert, sp3 and in no acute distress. Head/Face: Normocephalic, atraumatic. Eyes: Pupils equal round and reactive to light, extra-ocular motions intact. Lids and lashes normal. Conjunctiva and sclera are non-icteric and not injected. Cornea within normal limits. Periorbital areas with no swelling, redness, or edema. ENT: Nares patent. No nasal discharge, no septal abnormalities noted. External auditory canals are clear. Oropharynx with no redness, swelling, or masses, exudates, or evidence of obstruction, uvula midline. Mucous membranes moist. Neck: Trachea midline, no thyromegaly or masses palpated, and no cervical lymphadenopathy. Supple, full range of motion without nuchal rigidity, or vertebral point tenderness. No Meningismus. Chest/axilla: Normal chest wall appearance and motion. Nontender with no deformity. No lesions are appreciated. Cardiovascular: Regular rate and rhythm with a normal S1 and S2. No gallops, murmurs, or rubs. Normal PMI, no JVD. No pulse deficits. Respiratory: Lungs have equal breath sounds bilaterally, clear to auscultation and percussion. No rales, rhonchi or wheezes noted. No increased work of breathing, no retractions or nasal flaring. Abdomen/GI: Soft, non-tender, with normal bowel sounds. No distension or tympany. No guarding or rebound. No evidence of tenderness throughout. Back: No spinal tenderness. No costovertebral tenderness. Full range of motion. Skin: Warm, dry with normal turgor. Normal color with no rashes, no lesions, and no evidence of cellulitis. MS/ Extremity: Pulses equal, no cyanosis. Neurovascular intact. Full, normal range of motion. Neuro: Awake and alert, GCS 15, oriented to person, place, time, and situation. Cranial nerves II-XII grossly intact. Motor strength 5/5 in all extremities. Sensory grossly intact. Cerebellar exam normal. Normal gait. 12:05 ECG was reviewed by the Attending Physician. EKG demonstrates normal sinus rhythm at 78 sp3 bpm with first-degree AV block with OR 228 prolonged QRS with a right bundle branch block, and nonspecific diffuse ST/T changes without evidence of ischemia. Vital Signs: 11:37 BP 162 / 67; Pulse 80; Resp 16; Temp 98.6(TE); Pulse Ox 97% on R/A; Weight 90.72 kg; vg1 Height 5 ft. 8 in. (172.72 cm); Pain 0/10; 13:04 BP 173 / 72; Pulse 75; Resp 17; Pulse Ox 98% on R/A; vg1 13:58 BP 179 / 68; Pulse 76; Resp 19; Pulse Ox 96% on R/A; vg1 14:39 BP 149 / 53; Pulse 72; Resp 18; Pulse Ox 97% on R/A; vg1 11:37 Body Mass Index 30.41 (90.72 kg, 172.72 cm) vg1 MDM: 11:53 Patient medically screened. sp3 12:06 Data reviewed: vital signs, nurses notes. ED course: 35-year-old with weakness and sp3 generalized symptoms. We will cast a wide net with laboratory values, EKG, chest x-ray, urine analysis. CT head is not indicated at this time. Disposition based on patient course and data. To consider broad range of differential diagnosis including infection, sepsis, ACS, electrolyte abnormality, anemia, and generalized deconditioning/dehydration.. 14:22 ED course: Chest x-ray is negative other than mild viral markings on his lungs. sp3 COVID-19 and influenza are both negative as well. Remainder blood work is negative. Patient feels much better after receiving 1 dose of Ativan and states he is also ready to go home.. 05/16 11:52 Order name: CBC with Diff; Complete Time: 13:44 sp3 05/16 11:52 Order name: Troponin HS; Complete Time: 13:44 sp3 05/16 11:52 Order name: CMP; Complete Time: 13:44 sp3 05/16 11:52 Order name: UA MICROSCOPIC sp3 05/16 12:35 Order name: COVID-19/FLU A+B (Document "Date of Onset" if Symptomatic); Complete Time: bd 14:15 05/16 14:16 Order name: Urine Dipstick-Ancillary [facility] 05/16 11:52 Order name: XRAY Chest (1 view); Complete Time: 13:44 sp3 05/16 11:52 Order name: EKG; Complete Time: 11:53 sp3 05/16 11:52 Order name: Cardiac monitoring; Complete Time: 12:01 sp3 05/16 11:52 Order name: EKG - Nurse/Tech; Complete Time: 12:01 sp3 05/16 11:52 Order name: IV Saline Lock; Complete Time: 12:15 sp3 05/16 11:52 Order name: Labs collected and sent; Complete Time: 12:15 sp3 05/16 11:52 Order name: O2 Per Protocol; Complete Time: 12:01 sp3 05/16 11:52 Order name: O2 Sat Monitoring; Complete Time: 12:01 sp3 05/16 11:52 Order name: Urine Dipstick-Ancillary (obtain specimen); Complete Time: 14:16 sp3 Administered Medications: 13:02 Drug: Tylenol 650 mg Route: PO; vg1 13:58 Follow up: Response: No adverse reaction vg1 13:02 Not Given (Duplicate Order): Tylenol 650 mg PO once vg1 13:58 Drug: Ativan (LORazepam) 1 mg Route: IVP; Site: right antecubital; vg1 14:39 Follow up: Response: No adverse reaction; Marked relief of symptoms vg1 Disposition Summary: 05/16/21 14:24 Discharge Ordered Location: Home sp3 Condition: Stable sp3 Diagnosis - viral syndrome sp3 Followup: sp3 - With: Private Physician - When: As needed - Reason: Continuance of care Discharge Instructions: - Discharge Summary Sheet sp3 - Viral Illness, Adult sp3 Forms: - Medication Reconciliation Form sp3 - Thank You Letter sp3 - Antibiotic Education sp3 - Prescription Opioid Use sp3 Signatures: Dispatcher [employer] Kelly Govea RN RN vg1 Jay Arvizu MD MD sp3
[2021-05-16 14:40] LABS: Urine Amorphous Sediment 1+ /HPF (NONE SEEN); Urine Bacteria <20 /HPF (NONE SEEN); Urine Mucus 2+ /HPF (NONE SEEN); Urine RBC <5 /HPF (NONE SEEN)
[2021-05-16 14:41] LABS: Urine Coarse Granular Casts 0-5 /LPF (NONE SEEN)
[2021-05-16 19:58] VITALS: TEMP 98.6
[2021-05-16 20:01] VITALS: BP 149/53; O2SAT 97
--- NOTE | 2021-05-17 07:13 | EKG ---
Test Date: 2021-05-16 Test Time: 11:49:47 [employer] Manager: SURENDRA MEASUREMENT RESULTS: Intervals: Rate: 78 WV: 228 QRSD: 150 QT: 478 QTc: 544 [place]: P: 50 WV: 228 QRS: 86 T: 31 INTERPRETIVE STATEMENTS: Sinus rhythm with 1st degree AV block Right bundle branch block Abnormal ECG Compared to ECG 02/20/2021 16:07:28 Right bundle-branch block now present Sinus arrhythmia no longer present Incomplete right bundle-branch block no longer present Prolonged QT interval no longer present Electronically Signed On 05-17-21 07:09:44 CDT by Arnaldo Diaz
== END 2021-05-16 14:47 | disposition home or self-care (01) ==
LOC: ER 11:32
DX: B34.9 Viral infection, unspecified (principal); I12.0 Hypertensive chronic kidney disease with stage 5 chronic kidney disease or end stage renal disease; N18.6 End stage renal disease; E78.00 Pure hypercholesterolemia, unspecified; F41.8 Other specified anxiety disorders; Z99.2 Dependence on renal dialysis; Z95.1 Presence of aortocoronary bypass graft; Z95.818 Presence of other cardiac implants and grafts; Z20.822 Contact with and (suspected) exposure to COVID-19; Z96.653 Presence of artificial knee joint, bilateral
CPT/HCPCS: 93005; 85025; 36415; 84484; 80053; 0240U; 71045; 96374; 99285; 81003; 81015

== ENCOUNTER 2021-07-28 17:05 | Emergency (ER) | payer OTHER, BC ==
--- OUTSIDE RECORDS SUMMARY | 2021-07-28 17:12 | XMS REPORT | Continuity of Care Document ---
:1945 Author Organization [facility] t Address [address] [place] [address] Care Team Providers Name Role Phone Jerrell Pierce MD Primary Care Physician [id number] Attending Clinician Unavailable SHARON DIAZ Attending Clinician Unavailable Yaritza Curtis Attending Clinician Unavailable Provider Attending Clinician Unavailable Brooke Espino Attending Clinician Unavailable Chaya Allison Attending Clinician Unavailable ROSA Attending Clinician Unavailable SULAIMAN Attending Clinician Unavailable Rosa KENNY Attending Clinician Unavailable PETER Attending Clinician Unavailable PETER Attending Clinician Unavailable Usha MOSQUERA, Archie Attending Clinician Sugar SANTOS Attending Clinician Unavailable Jignesh Arvizu MD Attending Clinician Obi King DO Attending Clinician Dickson MOSQUERA Attending Clinician Ame Attending Clinician Bear Graham MD Attending Clinician Pierre York MD Attending Clinician Lisa Pedraza Attending Clinician LISA HENSON Attending Clinician Unavailable Sahil Mosley MD Attending Clinician [id number] Admitting Clinician Unavailable SHARON DIAZ Admitting Clinician Unavailable Yaritza Curtis Admitting Clinician Unavailable CHRISTO, L Admitting Clinician Unavailable Brooke Espino Admitting Clinician Unavailable Physician, Primary or Family Admitting Clinician UnavailChaya Tovar Admitting Clinician Unavailable IRENA Admitting Clinician Unavailable JOSESITO Admitting Clinician Unavailable CHRISTINE Admitting Clinician Unavailable Payers Payer Name Policy Type Policy Effective Date Expiration Date Sour ce Number JOHNNY TURNER [id number] BCTX BCTI [id number] MEDICARE PART B - [id number] 2010 2014 MEDICARE 00:00:00 00:00:00 PPO/EPO - BCBS [id number] 2016 4 00:00:00 MEDICAREMEDICARE PART [id number] 2010 Ne thodist A AND 00:00:00 [facility] [id number][place] [id number] 2010 Meth odist MEDICARE 4 00:00:00 Hospital [id number] mercial Problems Condition Condition Condition Status Onset Resolution Last Treating Co mments Source Name Details Category Date Date Treatment Clinician Date 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 Stable symptoms on current regimen which are separate from his recent chest pain. 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 Asymtomat ic on the current level of activity and medical regimen.E cho ordered. ESRD (end ESRD (end Disease Active Overview: [facility] stage stage 2-03 [facility] renal renal 00:00: g of this Hospita disease) disease) 00 note l might be different from the original. Added automatic ally from request for surgery [id number] End stage End stage Disease Active [facility] renal renal 1-23 disease on disease on 00:00: Ho spita dialysis dialysis 00 l Impaired Impaired Disease Active 2018-02 [facility] fasting fasting 1-17 [facility] glucose glucose 00:00: of 00 Medicin e Urinary Urinary Disease Active 2018-02 [facility] frequency frequency 1-17 Natan ege 00:00: of 00 Medicin e Chronic Chronic Disease Active 2018-02 [facility] disease disease 0-09 st anemia anemia 00:00: Hospita 00 l Chronic Chronic Disease Active 2018-02 [facility] kidney kidney 0-09 disease, disease, 00:00: Hospit a stage IV stage IV 00 l (severe) (severe) Arthritis Arthritis Disease Active 2017-02 [place] of knee, of knee, 2-11 Colleg e left left 00:00: of 00 Medicin e 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 2-11 [facility] replacemen replacemen 00:00: of t, t, 00 Medicin bilateral bilateral e Anemia, Anemia, Disease Active 2017-02 [facility] unspecifie unspecifie 1-13 st d d 00:00: Hospita 00 l Chronic Chronic Disease Active [facility] renal renal 6-11 [facility] disease, disease, 00:00: of stage 4, stage 4, 00 Medici n severely severely e decreased decreased glomerular glomerular filtration filtration rate (GFR) rate (GFR) between between 15-29 15-29 mL/min/1.7 mL/min/1.7 3 square 3 square meter meter (HCCode) (HCCode) Atheroscle Atheroscle Disease Active Overview : [facility] rosis of rosis of 09-23 Formattin [facility] lege [place] 00:00: g of this of coronary coronary 00 note Medici n artery of artery of might be e [place] different heart heart from the without without original. angina angina Long pectoris pectoris standing disease, stable with current RxLast Assessmen t & Plan: Formattin g of this note might be different from the original. Asymtomat ic on the current level of activity and medical regimen.L exiscan ordered. Essential Essential Disease Active Overview: [facility] hypertensi [facility]i 09[facility] on on 00:00: g of this of 00 note Medicin might be e different from the original. Stable and sometimes BP drops too muchLast Assessmen t & Plan: Formattin g of this note might be different from the original. Controlle d on the current regimen. Heart Heart Disease Active Overview: [facility] murmur murmur 09-23 A College 00:00: systolic of 00 murmur Medicin Grade 2/6 e over LSB , not radiating in any direction but audible over most of [place] l areaLast Assessmen t & Plan: Continue current Rx and control all risk factors including weight S/P S/P Disease Active Overview: [facility] angioplast angioplast 09-23 In 2009 C ollege y with y with 00:00: he had A of stent stent 00 stent Medicin deployed e in proximal RCA andCx had only Angioplas ty with good resultsLa st Assessmen t & Plan: Continue current Rx and control all risk factors including weight H/O H/O Disease Active Overview: [facility] unilateral unilateral 09-23 He had Co llege nephrectom nephrectom 00:00: nephrecto of y y 00 my long Medicin time ago e and the other kidney is weakLast Assessmen t & Plan: Monitor closely Rx and control all risk factors including weight Dyslipidem Dyslipidem Disease Active Overview : [facility] ia ia 8 [facility] College 00:00: g of this of 00 note Medicin might be e different from the original. Last year they were not perfectCu rrent Labs pendingLa st Assessmen t & Plan: Formattin g of this note might be different from the original. Controlle d on the current regimen. 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 EXAMINATIO CARE N AT A FACILITY HEALTH CARE FACILITY Active 02/18/2014 Condition 5 Medical Group HYPERTROPH Condition Active 2012-022014-02-18 [facility]oria Y PROSTATE 2-13 10:35:00 l W/UR OBST 00:00: [place] & OTH LUTS HYPERTROPH 00 Y PROSTATE W/UR OBST & OTH LUTS Active 01/23/2013 Condition 5 Medical Group DYSLIPIDEM Condition Active 2014-02-18 Memoria IA 10:35:00 l [place] DYSLIPIDEM IA Active Condition 02/18/2014 Medical Group GERD Condition Active 2014-02-18 Mem oria 10:35:00 l GERD [place] Active Condition 02/18/2014 Medical Group ASCVD Condition Active 2014-02-18 Mem oria 10:35:00 l ASCVD [place] Active Condition 02/18/2014 Medical Group CAD Condition Active 2014-02-18 Mem oria 10:35:00 l CAD [place] Active Condition 02/18/2014 Medical Group CHRONIC Condition Active 2014-02-18 Me moria KIDNEY 10:35:00 l DISEASE CHRONIC [place] n STAGE III KIDNEY (MODERATE) DISEASE STAGE III (MODERATE) Active Condition 02/18/2014 Medical Group HYPERTENSI Condition Active 2014-02-18 [facility] ON 10:35:00 l [place] HYPERTENSI ON Active Condition 02/18/2014 Medical Group Allergies, Adverse Reactions, Alerts Allergy Allergy Status Severity Reaction(s) Onset Inactive Treating Comm ents Source Name Type Date Date Clinician Iodine FA Active NM 2020-0 [facility] and 05-13 Clear Iodide 00:00: Smith Containi 00 [facility] shellfis FA Active SV 2020-0 [facility] h 05-13 Clear derived 00:00: [place] 00 [facility] PINICILL DA Active NM ITCHING 2020-0 [facility] IN 05-13 Clear 00:00: [place] 00 [facility] No Known DA Active U 2020-0 [facility] Allergie 05-13 [place] s 00:00: d 00 [facility] No Known DA Active U 2020-0 [facility] Allergie 05-13 [place] s 00:00: d 00 [facility] Iodine FA Active NM DIARRHEA [facility] and 05-13 [place] Iodide 00:00: d Containi 00 [facility] Produc shellfis FA Active SV SWELLING 2020-0 [facility] h 05-13 [place] derived 00:00: d 00 [facility] Iodine Propensi Active Rash 2020-0 Univers ty to 9-30 ity of adverse 00:00: [place] reaction 00 [facility] Penicill Propensi Active Anaphylaxis 2020-0 U nivers ins ty to 9-30 ity of adverse 00:00: [place] reaction 00 [facility] IODINE DRUG Active Rash 2020-0 Univers INGREDI 9-30 ity of 00:00: [place] 00 [facility] PENICILL Drug Active Anaphylaxis 2020-0 Uni vers INS Class 9-30 ity of 00:00: [place] 00 [facility] SHELLFIS DRUG Active Diarrhea 2020-0 Univer s H INGREDI 9-30 ity of DERIVED 00:00: [place] 00 [facility] Shellfis Propensi Active Nausea 2020-0 Univer s h ty to and/or 9-30 ity of Derived adverse Vomiting 00:00: [place] reaction 00 [facility] Penicill Propensi Active 2017-02 [facility] ins ty to 2-10 College adverse 00:00: of reaction 00 Medicin s to e drug Eicosape Propensi Active [facility] ty to 8-13 [facility] Acid adverse 00:00: Medical reaction 00 Center s Fish-Polo Propensi Active Moderate [facility] ived ty to 8-13 College Products adverse 00:00: of reaction 00 Medicin s to e drug Iodine Propensi Active Moderate [facility] ty to 8-13 College adverse 00:00: of reaction 00 Medicin s to e drug Shellfis Propensi Active Nausea And 2015-02 Me thodi h ty to Vomiting 0-21 st Containi adverse 00:00: Hospita ng reaction 00 l Products s to drug Iodine Propensi Active Rash 2015-[address] ty to 0-20 [facility] adverse 00:00: Medical reaction 00 Center s Iodine Propensi Active Rash 2015-02 [facility] ty to 0-20 st adverse 00:00: Hospita reaction 00 l s to drug Penicill Propensi Active Rash 2015-02 unknown Metho di ins ty to 0-20 st adverse 00:00: Hospita reaction 00 l s to drug Atorvast Propensi Active [facility] at[facility] ty to 2-24 [facility] adverse 00:00: Medical reaction 00 Center s Atorvast Propensi Active [facility] atin ty to 2-24 College adverse 00:00: of reaction 00 Medicin s to e drug Penicill Propensi Active Hives, unknown [facility] ins ty to Anaphylaxis 5-29 [facility] adverse 00:00: Medical reaction 00 Center s Shellfis Propensi Active Diarrhea, [facility] h ty to Nausea And 5-29 [facility] Containi adverse Vomiting 00:00: Medic al ng reaction 00 Center Products s PCN PCN Active Chela Marquez IODINE IODINE Active Chela Marquez Family History Family Member Diagnosis Comments Start Date Stop Date Source Natural father Heart disease [facility] [place] Natural mother COPD [facility] Social History Social Habit Start Date Stop Date Quantity Comments Source Exposure to Unable to assess Univers ity of SARS-CoV-2 [facility] (event) [facility] Alcohol intake 2021-05-15 2021-05-15 Current [facility] Col lege of 00:00:00 00:00:00 non-drinker of Medicine alcohol (finding) Tobacco use and 2019-11-19 2019-11-19 Never used [facility] llege of exposure 00:00:00 00:00:00 Medicine [birth year] [facility] llege of 00:00:00 00:00:00 Medicine Smoking Status Start Date Stop Date Source Never smoked tobacco [facility] ege of Medicine Unknown if ever smoked [facility] Medications Ordered Filled Start Stop Current Ordering Indication Dosage Frequency Signature Comments Components Source Medication Medication Date Date Medication? Clinician (SIG) Name Name gabapentin 2020- No 100mg Q.5D Take 100 M ethodi (NEURONTIN) 2- 02-[address] 100 mg 17:35: [...] Take 10 mg Me thodi (AMBIEN) 10 -26 03-[address] mg tablet 17:35: 00:00 nightly. Hos imelda 37 :00 l aspirin 2020- No 81mg QD Take 81 mg Met hodi (ECOTRIN) 03-26- by mouth st 81 MG 17:35: 00:00 daily. Hospita enteric 37 :00 l coated tablet traZODone 2020- No 100mg QD Take 100 Me thodi (DESYREL) 2- 02-[address] 100 MG 17:35: [...] (two) Hospita 31 times a l day. [place] twice daily diphenhydrA Yes 25mg Take 25 [...] 25mg Q.5D Take 1 Meth herminia tartrate 2-12 03-15 tablet (25 st (LOPRESSOR) 00:00: 04:59 mg total) Hospita 25 mg 00 :00 by mouth 2 l tablet (two) times a day for 30 days. gabapentin 0 2020- No 300mg QD Take 1 Met hodi (NEURONTIN) 2-12 03-[address] 300 mg 00:00: 04:59 (300 mg Hospita capsule 00 :00 total) by l mouth nightly for 30 days. aspirin No 81mg Q.5D Take 1 [facility]i (ECOTRIN) 03-25-15 tablet (81 st 81 MG 00:00: 04:59 mg total) Hospit a enteric 00 :00 by mouth 2 l coated (two) tablet times a day for 30 days. traZODone 2020- No 150mg QD Take 1 Meth herminia (DESYREL) 03-[address] 150 MG 00:00: 04:59 (150 mg Hospita tablet 00 :00 total) by l mouth nightly for 30 days. zolpidem 2020- No 5mg QD Take 1 Method i (AMBIEN) 5 03-25 tablet (5 st MG tablet 00:00: 04:59 mg total) Ho spita 00 :00 by mouth l nightly for 30 days. clopidogrel 2019-02 Yes TAKE ONE Chaim ylor (PLAVIX) 75 2-07 TABLET BY Col [...] zolpidem 2019-02 Yes 10mg Take 10 mg [place] (AMBIEN) 5 0-08 by mouth Colle ge MG tablet 16:05: nightly as of 09 needed for Medicin Sleep. e Sulfamethox 2019-02 Yes Take by Chaim anaya azole-Trime 0-08 mouth College thoprim 16:05: daily. of (BACTRIM 09 Medicin OR) e furosemide 2019-02 Yes 40mg Take 40 mg B aylor (LASIX) 40 0-08 by mouth Colle ge MG tablet 16:05: daily. of Medicin e gabapentin 2019-02 Yes 100mg Take 100 Ba ylor (NEURONTIN) 0-08 mg by College 100 MG 16:05: mouth two of capsule 09 times Medicin daily. e DESVENLAFAX 2019-02 2020- No Take by B aylor INE ER OR 0-08 - mouth College 16:04: 00:00 daily. of 59 :00 Medicin e Coenzyme 2019-02 2020- No 1 po qd [facility] Q10 100 MG 011-18 [facility] CHEW 16:04: 00:00 of 50 :00 Medicin e Niacin CR 2019-02 2020- No 1 po qd Bayl or 500 MG CPCR 011-18 [facility] 16:03: 00:00 of 53 :00 Medicin e Multiple 2019-02 Yes Qd Armond Vitamins-Mi 0 [facility] nerals (EYE 11:05: of VITAMINS Medicin OR) e Tamsulosin 2019-02 Yes 4mg 4 mg [facility] HCl 0.4 MG 0-08 daily. Qd Natan [...] zolpidem 2019-02 Yes 10mg Take 10 mg [place] (AMBIEN) 5 0-08 by mouth Colle ge MG tablet 11:05: nightly as of 09 needed for Medicin Sleep. e Sulfamethox 2019-02 Yes Take by Ba ylor azole-Trime 0-08 mouth College thoprim 11:05: daily. of (BACTRIM 09 Medicin OR) e furosemide 2019-02 Yes 40mg Take 40 mg [facility] a[facility] (LASIX) 40 0-08 by mouth Colle ge MG tablet 11:05: daily. of 09 Medicin e gabapentin 2019-02 Yes 100mg Take 100 Ba ylor (NEURONTIN) 0-08 mg by College 100 MG 11:05: mouth two of capsule 09 times Medicin daily. e Colesevelam Yes TAKE [place] HCl 3.75 g 11-03 DIRECTED Colle ge PACK 00:00: TWICE of 00 DAILY Medicin e Colesevelam Yes TAKE [place] HCl 3.75 g 11-03 DIRECTED Colle ge PACK 00:00: TWICE of 00 DAILY Medicin e sulfamethox 2020- No 1{tbl} QD Take 1 M ethodi azole-trime 11-02 02- tablet by st thoprim 00:00: 00:00 mouth Hospita (Bactrim) 00 :00 daily. l 400-80 mg per tablet sulfamethox 2019- No TAKE ONE M ethodi azole-trime 08-28- TABLET BY st thoprim 00:00: 00:00 MOUTH Hospita (BACTRIM 00 :00 DAILY l DS) 800-160 mg per tablet metoprolol Yes TAKE ONE [place] (LOPRESSOR) 1-24 TABLET BY Col lege 50 MG 00:00: MOUTH of tablet 00 TWICE A Medicin DAY e metoprolol Yes TAKE ONE [place] (LOPRESSOR) 1-24 TABLET BY Col lege [...] St HCL 2-15 g by mouth [facility] (WELCHOL 17:11: 2 (two) Medica l ORAL) 46 times Center daily with breakfast and dinner . coenzyme 2016-02 Yes [address] [facility] Q10 100 mg 2-15 [facility] Chew 17:11: Medical Center niacin 500 2016-02 Yes [address] [facility] MG CR 2-15 [facility] capsule 17:11: [place] [id number] Center zolpidem 2016-02 Yes 10mg Take [address] (AMBIEN) 10 2-15 by mouth Luke s mg tablet 17:10: every Medical 17 night as Center needed for Insomnia. DULoxetine 2016-02 Yes 60mg QD Take [address] (CYMBALTA) 2-15 by mouth [facility] 60 MG 17:10: daily. Medical capsule 17 Center NIFEdipine 2016-02 Yes 60mg QD Take [address] (PROCARDIA- 2-15 by mouth Luke s XL) 60 MG 17:10: daily. Medica l (OSM) 24 hr 17 Center tablet losartan 2019- No TAKE ONE [facility]l or (COZAAR) 5-21 10-08 TABLET BY Colle ge 100 MG 00:00: 00:00 MOUTH of tablet 00 :00 DAILY Medicin e tamsulosin Yes .4mg 0.[address] (FLOMAX) 5-23 [facility] 0.4 mg Cp24 00:00: Medica l 24 hr 00 Center capsule pantoprazol Yes QD daily . [facility] e 5-22 [facility] (PROTONIX) 00:00: Medical 40 MG 00 Center tablet pantoprazol Yes 40mg QD Take 40 mg Methodi e 5-[address] (PROTONIX) 00:00: every Hospit a 40 MG EC 00 morning. l tablet clopidogrel Yes QD daily . [facility] (PLAVIX) 75 5-12 [facility] mg tablet 00:00: Medical 00 Center fluticasone Yes 2{spray Q.5D [address] (FLONASE) 5-12 } by Nasal [facility] 50 00:00: route 2 Medical mcg/actuati 00 (two) Center on nasal times spray daily . metoprolol Yes Q.5D 2 (two) [facility] (LOPRESSOR) 5-12 times [facility] 50 MG 00:00: daily . Medical tablet 00 Center nisoldipine Yes 34mg QD 34 mg [facility] t (SULAR) 34 5-12 daily . [facility] MG 24 hr 00:00: Medical tablet 00 Center metoprolol 2020- No 25mg QD Take 25 mg Methodi tartrate 5-12 02-[address] (LOPRESSOR) 00:00: 00:00 daily. Hos imelda 50 MG 00 :00 l tablet CLOPIDOGREL Yes TAKE 1 Andres dora BISULFATE 1-08 TABLET BY l 75 MG TABS 10:35: MOUTH [place] n 00 DAILY NISOLDIPINE Yes TAKE 1 Andres dora ER 34 MG 1-08 TABLET BY l [id number] 10:35: MOUTH Jimmy 00 DAILY LOSARTAN Yes [...] ER 34 MG 1-08 TABLET BY l [id number] 10:35: MOUTH [place] DAILY LOSARTAN Yes TAKE 1 Memoria POTASSIUM 1-08 TABLET BY l 100 MG TABS 10:35: MOUTH Mary nn DAILY CYMBALTA 60 Yes TAKE 1 Andres [...] 1 tab PM l MG TABS 00:00: [place] 00 WELCHOL Yes 2 packs Memoria 3.75 GM 1-08 per day AM l PACK 00:00: & PM NIACIN 500 Yes 1 tab Memori a MG TABS 1-08 daily l 00:00: [place] 00 PAPAYA Yes 2 tablet [facility]oria ENZYME TABS 1-08 after main l 00:00: meals METOPROLOL Yes 2 tab AM & M emoria TARTRATE 50 1-08 1 tab PM l MG TABS 00:00: [place] 00 METOPROLOL 2012-02 Yes TAKE 1 Memor ia TARTRATE 50 2-13 TABLET BY l MG TABS 14:45: MOUTH [place] DAILY LOSARTAN 2012-02 Yes TAKE 1 [facility] POTASSIUM 2-13 TABLET BY l 100 MG TABS 14:45: MOUTH Mary nn 00 DAILY WELCHOL 2012-02 Yes TAKE 1 Memoria 3.75 GM 2-13 TABLET BY l PACK 14:45: MOUTH [place] DAILY CYMBALTA 60 2012-02 Yes TAKE 1 Andres dora MG CPEP 2-13 TABLET BY l 14:45: MOUTH Jimmy DAILY PANTOPRAZOL 2012-02 Yes TAKE 1 Andres dora E SODIUM 40 2-13 TABLET BY l MG TBEC 14:45: MOUTH [place] DAILY METOPROLOL 2012-02 Yes TAKE 1 Memor [...] CPEP 2-13 TABLET BY l 14:45: MOUTH [place] DAILY PANTOPRAZOL 2012-02 Yes TAKE 1 Andres dora E SODIUM 40 2-13 TABLET BY l MG TBEC 14:45: MOUTH [place] DAILY PLAVIX 75 2012-02 No TAKE 1 Memori a MG TABS 2-13 TABLET BY l 00:00: MOUTH [place] DAILY OCUVITE EYE 2012-02 Yes Memori a + MULTI 2-13 l TABS 00:00: [place] 00 COQ10 CAPS 2012-02 Yes Memoria 2-13 l 00:00: [place] 00 ASPIRIN 81 2012-02 Yes Memoria MG TABS 2-13 l 00:00: [place] 00 FLOMAX 0.4 2012-02 Yes one every Me moria MG CAPS 2-13 evening. l 00:00: [place] 00 LUNESTA 3 2012-02 Yes TAKE 1 Memori a MG TABS 2-13 TABLET BY l 00:00: MOUTH [place] 00 DAILY LUNESTA 3 2012-02 Yes TAKE 1 Memori a MG TABS 2-13 TABLET BY l 00:00: MOUTH [place] 00 DAILY FLOMAX 0.4 2012-02 No one every Me moria MG CAPS 2-13 evening. l 00:00: [place] 00 PLAVIX 75 2012-02 No TAKE 1 Memori a MG TABS 2-13 TABLET BY l 00:00: MOUTH [place] 00 DAILY OCUVITE EYE 2012-02 Yes Memori a + MULTI 2-13 l TABS 00:00: [place] 00 COQ10 CAPS 2012-02 Yes Memoria 2-13 l 00:00: [place] 00 ASPIRIN 81 2012-02 Yes Memoria MG TABS 2-13 l 00:00: [place] 00 FLOMAX 0.4 2012-02 Yes one every Me moria MG CAPS 2-13 evening. l 00:00: [place] 00 LUNESTA 3 2012-02 Yes TAKE 1 Memori a MG TABS 2-13 TABLET BY l 00:00: MOUTH [place] 00 DAILY LUNESTA 3 2012-02 Yes TAKE 1 Memori a MG TABS 2-13 TABLET BY l 00:00: MOUTH [place] 00 DAILY FLOMAX 0.4 2012-02 No one [...] influenza 2010-10-16 Completed [facility] (Flu 14:23:57 [place] Vax) has been administered influenza 2010-10-16 Completed [facility] immunization (Flu 14:23:57 [place] Vax) has been administered pneumococcal 2007-06-14 Completed [facility] immunization 14:23:57 [place] administered pneumococcal 2007-06-14 Completed [facility] immunization 14:23:57 [place] administered hepatitis B vaccine 2006-04-11 Completed Memor ial #3 15:23:57 [place] hepatitis B vaccine 2006-04-11 Completed Memor ial #3 15:23:57 [place] chicken pox 2006-03-20 Completed [facility] immunization #1 15:23:57 [place] chicken pox 2006-03-20 Completed [facility] immunization #1 15:23:57 [place] hepatitis B vaccine 2006-03-15 Completed Memor ial #2 given 15:23:57 [place] hepatitis B vaccine 2006-03-15 Completed Memor ial #2 given 15:23:57 [place] MMR (measles, mumps, 2006-02-28 Completed Andres rial rubella) virus 15:23:57 Jimmy immunization #1 MMR (measles, mumps, 2006-02-28 Completed Andres rial rubella) virus 15:23:57 Jimmy immunization #1 hepatitis B vaccine 2006-02-25 Completed Memor ial #1 given 15:23:57 [place] hepatitis B vaccine 2006-02-25 Completed Memor ial #1 given 15:23:57 [place] Vital Signs Vital Name Observation Time Observation Value Comments Source Heart rate 2021-05-15 14:59:00 72 /min [facility] Body height 2021-05-15 14:59:00 172.7 cm [facility] Systolic blood 2021-05-15 14:59:00 138 mm[Hg] [facility] Medicine Diastolic blood 2021-05-15 14:59:00 74 mm[Hg] [facility] Systolic blood 2019-11-19 15:57:00 146 mm[Hg] [facility] Medicine Diastolic blood 2019-11-19 15:57:00 72 mm[Hg] [facility] Medicine Heart rate 2019-11-19 15:57:00 91 /min [facility] Body height 2019-11-19 15:57:00 172.7 cm [facility] Body weight 2019-11-19 15:57:00 83.462 kg [facility] BMI 2019-11-19 15:57:00 27.98 kg/m2 [facility] 2019-11-19 15:57:00 146 mm[Hg] [facility] Medicine Diastolic blood 2019-11-19 15:57:00 72 mm[Hg] [facility] Medicine Heart rate 2019-11-19 15:57:00 91 /min [facility] Body height 2019-11-19 15:57:00 172.7 cm [facility] 2019-11-19 15:57:00 [facility] 2019-11-19 15:57:00 27.98 kg/m2 [facility] Systolic blood 2019-11-12 01:28:00 126 mm[Hg] [facility] Diastolic blood 2019-11-12 01:28:00 63 mm[Hg] Unive rsity of pressure [facility] Branch Heart rate 2019-11-12 01:28:00 84 /min [facility] [place] Respiratory rate 2019-11-12 01:28:00 20 /min [facility] Oxygen saturation in 2019-11-12 01:28:00 100 /min University of Arterial blood by [facility] Pulse oximetry Branch Systolic blood 2019-11-12 01:00:00 142 mm[Hg] [facility] Diastolic blood 2019-11-12 01:00:00 71 mm[Hg] [facility]ive [facility] Heart rate 2019-11-12 01:00:00 84 /min [facility] Respiratory rate 2019-11-12 01:00:00 14 /min [facility] Oxygen saturation in 2019-11-12 01:00:00 99 /min University of Arterial blood by [facility] Pulse oximetry Branch Body temperature 2019-11-11 22:21:00 36.61 Pat [facility] Body weight 2019-11-11 22:21:00 85 kg [facility] Systolic blood 2019-11-12 01:28:00 126 mm[Hg] [facility] Diastolic blood 2019-11-12 01:28:00 63 mm[Hg] Unive rsity of pressure [facility] Heart rate 2019-11-12 01:28:00 84 /min Universi ty of [facility] Respiratory rate 2019-11-12 01:28:00 20 /min [facility] O[facility] in 2019-11-12 01:28:00 100 /min University of Arterial blood by [facility] Pulse oximetry Branch Systolic blood 2019-11-12 01:00:00 142 mm[Hg] Univer sity of pressure [facility] Diastolic blood 2019-11-12 01:00:00 71 mm[Hg] Unive rsity of pressure [facility] Heart rate 2019-11-12 01:00:00 84 /min Universi [facility] Respiratory rate 2019-11-12 01:00:00 14 /min [facility] Oxygen saturation in 2019-11-12 01:00:00 99 /min University of Arterial blood by [facility] Pulse oximetry Branch Body temperature 2019-11-11 22:21:00 36.61 Pat [facility] Body weight 2019-11-11 22:21:00 85 kg [facility] Body height 2020-04-27 20:44:00 172.7 cm [facility] Body weight 2020-04-27 20:44:00 84.369 kg [facility] BMI 2020-04-27 20:44:00 28.28 kg/m2 [facility] Systolic blood 2020-03-26 14:44:51 139 mm[Hg] [facility] pressure Diastolic blood 2020-03-26 14:44:51 66 mm[Hg] [facility] pressure Heart rate 2020-03-26 14:44:51 80 /min [facility] Body temperature 2020-03-26 14:44:51 36 Pat [facility] Respiratory rate 2020-03-26 14:44:51 19 /min [facility] Oxygen saturation in 2020-03-26 14:44:51 96 /min [facility] Arterial blood by Pulse oximetry Height 2014-02-18 15:55:42 [facility] Weight 2014-02-18 15:55:42 [facility] Temperature Oral (F) 2014-02-18 15:55:[address] [facility] Heart Rate 2014-02-18 15:55:42 [facility] Systolic (mm Hg) 2014-02-18 15:55:42 Andres rial Jimmy Diastolic (mm Hg) 2014-02-18 15:55:42 Mem orial Jimmy Weight 2013-01-23 19:53:21 [facility] Temperature Oral (F) 2013-01-23 19:53:21 97.6 F [facility] Heart Rate 2013-01-23 19:53:21 [facility] Height 2013-01-23 19:53:21 [facility] Systolic (mm Hg) 2013-01-23 19:53:21 Andres [facility] [place] Diastolic (mm Hg) 2013-01-23 19:53:21 Mem orial [place] Procedures Procedure Date / Time Performing Clinician Source Performed ELECTROCARDIOGRAM COMPLETE 2021-05-15 13:13:49 [facility] NUCLEAR MED SCAN 2021-05-15 09:49:10 [facility] [id number] 2020-05-24 00:00:00 [facility] [id number] 2020-05-20 00:00:00 GIBJE.01 [facility] [id number] 2020-05-20 00:00:00 [facility]01 [facility] [id number] 2020-05-20 00:00:00 [facility]IB[facility].01 [facility] [id number] 2020-05-20 00:00:00 [facility] [id number] 2020-05-16 00:00:00 JUSTINO.03 [facility] [id number] 2020-05-14 00:00:00 JUSTINO.03 [facility] [id number] 2020-05-11 00:00:00 ENCPL 7G2N35Y 2020-05-11 00:00:00 ENCPL 8Q1C72A 2020-05-11 00:00:00 ENCPL 9C7Q82T 2020-05-11 00:00:00 ENCPL 7U2S50F 2020-03-30 00:00:00 ENCCY 5O6J36K 2020-03-30 00:00:00 ENCCY 1I2O66W 2020-03-30 00:00:00 ENCCY 3V8G51C 2020-03-30 00:00:00 ENCCY 4Y2T04E 2020-03-30 00:00:00 ENCCY 3J2O11G 2020-03-30 00:00:00 ENCCY 8R3K71X 2020-03-30 00:00:00 ENCCY 9M3F46F 2020-03-30 00:00:00 ENCCY 5D3E51K 2020-03-30 00:00:00 ENCCY 7A8S16V 2020-03-30 00:00:00 ENCCY 7Q0H10X 2020-03-30 00:00:00 JENNIFERCY [id number] 2020-03-30 00:00:00 JENNIFERCY 3C4O87O 2020-03-30 00:00:00 JENNIFERCY 6O5C05B 2020-03-30 00:00:00 JENNIFERCY 0Y0X32X 2020-03-30 00:00:00 JENNIFERCY 9P1F67R 2020-03-30 00:00:00 JENNIFERCY 1T5D05K 2020-03-30 00:00:00 JENNIFERCY 0N9Y30Q 2020-03-30 00:00:00 JENNIFERCY 4P3C37W 2020-03-30 00:00:00 JENNIFERCY 3V5Q45B 2020-03-30 00:00:00 JENNIFERCY 6L7Q08O 2020-03-30 00:00:00 JENNIFERCY 3V4K54A 2020-03-30 00:00:00 MICHELLE HC COMPLETE BLD COUNT 2020-03-25 10:45:00 [facility]FF Obi BASIC METABOLIC PANEL 2020-03-25 10:00:00 [facility] Obi ESTIMATED GFR 2020-03-25 10:00:00 Clint King Ho spital Obi HEMODIALYSIS 2020-03-24 22:39:54 [facility] COMPLETE BLD COUNT 2020-03-24 11:00:00 [facility] W/AUTO DIFF Obi BASIC METABOLIC PANEL 2020-03-24 10:00:00 [facility] Obi ESTIMATED GFR 2020-03-24 10:00:00 Clint King Ho spital Obi US CAROTID DUPLEX BILATERAL 2020-03-23 18:31:05 [facility] BASIC METABOLIC PANEL 2020-03-23 09:20:00 [facility] Obi HC COMPLETE BLD COUNT 2020-03-23 09:20:00 [facility] W/AUTO DIFF Obi ESTIMATED GFR 2020-03-23 09:20:00 [facility] POC GLUCOSE 2020-03-22 22:27:00 Christine [facility] spital Obi HEMODIALYSIS 2020-03-22 22:13:20 Romy Woodson [facility] spital Tabitha ANAEROBIC CULTURE 2020-03-22 20:52:00 [facility] FUNGUS CULTURE 2020-03-22 20:52:00 [facility] sp[facility] AFB STAIN 2020-03-22 20:52:00 [facility] spital AEROBIC CULTURE 2020-03-22 20:52:00 [facility] spital FUNGUS SMEAR 2020-03-22 20:52:00 [facility] spital ANAEROBIC CULTURE 2020-03-22 20:50:00 [facility] FUNGUS CULTURE 2020-03-22 20:50:00 [facility] spital AFB STAIN 2020-03-22 20:50:00 [facility] spital AEROBIC CULTURE 2020-03-22 20:50:00 [facility] GRAM STAIN 2020-03-22 20:50:00 [facility] [employer] Ho spital SURGICAL PATHOLOGY REQUEST 2020-03-22 20:30:[address] [facility] [place] [place] Obi AFB CULTURE 2020-03-22 19:52:00 [facility] spital AFB CULTURE 2020-03-22 19:50:00 Usha Obi [facility] spital OR FL < 1 HOUR 2020-03-22 19:30:00 Usha Obi [facility] spital OK AN ELECTIVE ENDOTRACHEAL 2020-03-22 19:25:28 [facility] AIRWAY AMPUTATION, ABOVE KNEE 2020-03-22 18:47:00 Obi Kerr [facility] POC GLUCOSE 2020-03-22 15:07:00 Clint King chepetal Obi HC COMPLETE BLD COUNT 2020-03-22 12:45:00 [facility] DIFF TYPE AND SCREEN 2020-03-22 12:45:00 Chucky [facility] Nond[employer]ational spital VANCOMYCIN LEVEL, RANDOM 2020-03-22 10:00:00 [facility] BASIC METABOLIC PANEL 2020-03-22 10:00:00 [facility] Obi ESTIMATED GFR 2020-03-22 10:00:00 Clint King spital Obi LIPID PANEL 2020-03-22 10:00:00 Bear Mariee [facility] HEPATITIS B SURFACE ANTIGEN 2020-03-21 14:22:00 Kumar Ayala [facility] PROTHROMBIN TIME WITH INR 2020-03-21 12:15:00 [facility] PARTIAL THROMBOPLASTIN TIME 2020-03-21 12:15:00 [facility] (PTT) BASIC METABOLIC PANEL 2020-03-21 12:15:00 [facility] CBC WITH PLATELET AND 2020-03-21 12:15:00 [facility] DIFFERENTIAL VANCOMYCIN LEVEL, RANDOM 2020-03-21 12:15:00 [facility] ESTIMATED GFR 2020-03-21 12:15:00 [facility] HEMODIALYSIS 2020-03-21 06:05:17 [facility] VANCOMYCIN LEVEL, RANDOM 2020-03-20 20:54:00 [facility] BASIC METABOLIC PANEL 2020-03-20 11:30:[address] [facility] Obi ESTIMATED GFR 2020-03-20 11:30:00 [facility] TTE COMPLETE, W CONTRAST, W 2020-03-19 18:00:00 [facility] DOPPLER ([id number]) HC COMPLETE BLD COUNT 2020-03-19 10:14:00 [facility] W/AUTO DIFF MRI KNEE WO CONTRAST RIGHT 2020-03-19 09:38:00 [facility] MRI THIGH WO CONTRAST RIGHT 2020-03-19 08:52:00 [facility] MRI LOWER EXTREMITY WO 2020-03-19 08:07:00 [facility] CONTRAST RIGHT BASIC METABOLIC PANEL 2020-03-19 07:01:00 [facility] ESTIMATED GFR 2020-03-19 07:01:00 [facility] spital LACTIC ACID LEVEL 2020-03-19 07:01:00 [place] LACTIC ACID LEVEL, SEPSIS - 2020-03-19 01:46:00 [facility] NOW AND REPEAT 2X EVERY 3 [place] HOURS BLOOD CULTURE, AEROBIC & 2020-03-18 23:22:00 [facility] ANAEROBIC [place] COVID-19 QUALITATIVE RT-PCR 2020-03-18 23:22:00 [facility] [place] BLOOD CULTURE, AEROBIC & 2020-03-18 23:16:00 [facility] ANAEROBIC [place] HC COMPLETE BLD COUNT 2020-03-18 23:16:00 [facility] W/AUTO DIFF [place] PROTHROMBIN TIME WITH INR 2020-03-18 23:16:00 [facility] [place] PARTIAL THROMBOPLASTIN TIME 2020-03-18 23:16:00 [facility] (PTT) [place] TYPE AND SCREEN 2020-03-18 23:16:00 [facility] spital [place] COMPREHENSIVE METABOLIC 2020-03-18 23:16:00 [facility] PANEL [place] LACTIC ACID LEVEL, SEPSIS - 2020-03-18 23:16:00 [facility] NOW AND REPEAT 2X EVERY 3 [place] HOURS C-REACTIVE PROTEIN 2020-03-18 23:16:00 [facility] [place] SEDIMENTATION RATE 2020-03-18 23:16:00 [facility] [place] ESTIMATED GFR 2020-03-18 23:16:00 [facility] spital [place] URINE CULTURE 2020-03-18 23:10:00 [facility] spital [place] URINALYSIS SCREEN AND 2020-03-18 23:10:00 [facility] MICROSCOPY, WITH REFLEX TO [place] CULTURE XR KNEE 1 OR 2 VW RIGHT 2020-03-18 23:03:39 [facility] [place] XR TIBIA FIBULA 2 VW RIGHT 2020-03-18 23:03:04 [facility] [place] URINALYSIS 2019-11-11 23:48:00 Wanda Henson [facility] XR CHEST 1 VW 2019-11-11 23:02:37 Wanda Henson [facility] MAGNESIUM 2019-11-11 22:43:00 Nelia [facility] COMP. METABOLIC PANEL 2019-11-11 22:43:00 Wanda Henson [facility] ([id number]) [facility] CBC WITH DIFF 2019-11-11 22:43:00 Wanda Henson [facility] TROPONIN I 2019-11-11 22:43:00 Wanda Henson [facility] EKG-12 LEAD 2019-11-11 22:40:13 Nelia, K [facility] Plan of Care Planned Activity Planned Date Details Comments Source Future Scheduled 2021-05-15 Screening for malignant [facility] Test 12:13:46 neoplasm of colon of Medicin e (procedure) [code = 771008550] Future Scheduled 2021-05-15 COVID-19 Vaccine (1) [facility] Test 12:13:46 [code = COVID-19 of Medicine Vaccine (1)] Future Scheduled 2021-05-15 TETANUS SHOT (ADULT) [employer] Test 12:13:46 [code = TETANUS SHOT of Medi cine (ADULT)] Future Scheduled 2021-05-15 BMI FOLLOW UP PLAN [employer] Test 12:13:46 [code = BMI FOLLOW UP of Med icine PLAN] Future Scheduled 2021-05-15 Hepatitis C screening [employer] Test 12:13:46 (procedure) [code = of Medic ine 089848974] Future Scheduled 2021-05-15 ZOSTER VACCINE (1 of [...] M edicine MONTHS] Future Scheduled 2021-05-15 ELECTROCARDIOGRAM [facility] Test 10:00:47 COMPLETE [code = 21158] of M edicine Diagnostic Test 2021-05-15 MYOCARD PERFUSION - Expected: [employer] Pending 00:00:00 LEXISCAN [code = 56036] 05/15/2021, of M edicine Expires: 11/14/2022 Diagnostic Test 2021-05-15 ECHO, COMPLETE [code = Expected: [employer] Pending 00:00:00 72322] 05/15/2021, of Medicine Expires: 11/14/2021 Future Scheduled ELECTROCARDIOGRAM [facility] College Test COMPLETE [code = 40047] of M edicine Future Scheduled COLON CANCER SCREENING: [facility] Test COLONOSCOPY [code = of Medic ine COLON CANCER SCREENING: COLONOSCOPY] Future Scheduled TETANUS SHOT (ADULT) [employer] [employer] Test [code = TETANUS SHOT of Medi cine (ADULT)] Future Scheduled BMI FOLLOW UP PLAN [employer] Test [code = BMI FOLLOW UP of Med icine PLAN] Future Scheduled HEPATITIS C SCREENING [employer] Test [code = HEPATITIS C of Medic ine SCREENING] Future Scheduled ZOSTER VACCINE (1 of 2) [facility] College Test [code = ZOSTER VACCINE of Me dicine (1 of 2)] Future Scheduled FALL SCREEN [code = [employer] FALL SCREEN] of Medicine Future Scheduled PNEUMOVAX >=65 (PPSV23) [employer] Test [code = PNEUMOVAX >=65 of [...] VACCINES (#1)] Future Scheduled INFLUENZA VACCINE [code [facility] Test = INFLUENZA VACCINE] Hospita l Future Scheduled EVENT MONITOR [code = 1 Occurrences [employer] Test 64528] starting of Medicine 11/19/2019 until 02/17/2020 Encounters Start End Encounter Admission Attending Care Care Encounter Source Date/Time Date/Time Type Type Clinicians Facility Department ID 2021-03-09 Outpatient 3 [id number] ENCPL BIT ENCPL 11:54:24 0407 2021-03-09 Outpatient 3 [id number] ENCPL REF ENCPL 11:53:41 0406 2021-03-09 Outpatient 3 [id number] ENCPL REF ENCPL 11:50:56 0329 2021-03-09 Outpatient 3 MICHELLE DIAZ AML [id number] ENCCY 11:34:54 IGNAZIO 60987 2021-03-09 Outpatient 3 [id number] ENCPL REF [id number] ENCPL 11:33:20 2112021-03-09 Outpatient 3 [id number] ENCPL REF [id number] ENCPL 11:32:52 0212021-03-09 Outpatient 3 [id number] ENCPL REF [id number] ENCPL 11:32:32 0210 2020 Inpatient Kirsten, HCACL HCACL [id number] [facility] 10:29:00 Sekou 19 [facility] 2020 Outpatient Provider, HCAPM HCAPM [id number] [facility] 10:29:00 Turner 34 [facility] 2020 Inpatient Srinivas, HCACL HCACL [id number] [facility] 10:28:59 Fausto 61 [facility] 2020-06-03 Inpatient Kirsten, HCACL HCACL [id number] [facility] 07:15:00 Sekou [id number] [facility] 2020-05-19 Inpatient UR Kirsten, HCACL REHA [id number] [facility] 18:00:00 Sekou [id number] [facility] 2020-05-13 Inpatient HCACL DIGNA [id number] [facility] 01:15:00 [id number] [facility] 2020-03-26 Inpatient 3 Christo, ZINA AML [id number] ENCPL 12:00:00 Chaya 0213 2021-06-12 2021-06-[address] [facility] [id number] [place] 00:00:00 00:00:[address] 2021-05-25 2021-05-25 Outpatient [facility] [id number] [facility] 08:47:29 16:40:23 [place] bravo of Medicin e 2021-05-25 2021-05-25 Outpatient CHELSEA HILARIO [facility] [id number] [facility] 08:52:28 14:12:09 LOVE bravo of Medicin e 2021-05-15 2021-05-15 Office CHELSEA KENNY [id number] [facility] 09:49:10 10:49:30 Visit SVETLANA AMBULATOR 350.1.13.21 College Y 0.2.7.2.686 [id number] [facility] sky 300 e 2020-12-07 2020-12-07 Outpatient [facility] [id number] [place] 00:00:00 00:00:00 HEAVENLYH [address] 2020-10-01 2020-10-06 Inpatient [facility] [id number] [place] 00:00:00 00:00:00 SANDRA [address] 2020-05-12 2020-05-12 Outpatient TORI [facility] RADI [id number] [facility] 21:45:00 21:45:00 CHAYA [id number] [facility] 2020-04-27 2020-04-27 Telemedici Obi Kerr 1.2.840.1 [id number] Methodi 15:36:30 16:10:[address] 3.430.2.7 Hospit a .3.441950 l .8 2020-04-27 2020-04-27 Travel 1.2.840.1 1.2.426.855 3011 [id number] Methodi 00:00:00 00:00:[address] 3.430.2.7 0.2.7.3.698 Ho spita .3.829233 084.8 l .8 2020-04-26 2020-04-26 Travel 1.2.840.1 1.2.240.499 8277 [id number] Methodi 00:00:00 00:00:[address] 3.430.2.7 0.2.7.3.698 Ho spita .3.451486 084.8 l .8 2020-04-13 2020-04-18 Office Obi Kerr 1.2.840.1 [id number] Methodi 11:45:02 00:23:05 Visit Archie 34067.1.[address] 3.430.2.7 Hospit a .3.978853 l .8 2020-04-13 2020-04-13 Travel 1.2.840.1 1.2.836.208 8795 [id number] Methodi 00:00:00 00:00:[address] 3.430.2.7 0.2.7.3.698 Ho spita .3.771335 084.8 l .8 2020-04-05 2020-04-05 Abstract Sugar, 1.2.840.1 [id number] 866 [id number] Methodi 00:00:00 00:00:[address] 3.430.2.7 Hospit a .3.419817 l .8 2020-04-04 2020-04-04 [facility] 1.2.840.1 [id number] 662 [id number] Methodi 13:34:38 14:35:21 Visit Archie 16126.1.[address] 3.430.2.7 Hospit a .3.325110 l .8 2020-04-04 2020-04-04 Travel 1.2.840.1 1.2.783.237 8213 126497 Methodi 00:00:00 00:00:[address] 3.430.2.7 0.2.7.3.698 Ho spita .3.980926 084.8 l .8 2020-04-01 2020-04-01 [facility] Sugar, 1.2.840.1 [id number] 2099 [id number] Methodi 00:00:00 00:00:00 Only Emilee 72413.1.[address] 3.430.2.7 Hospit a .3.944715 l .8 2020-04-01 2020-04-01 Travel 1.2.840.1 1.2.628.185 7635 438953 Methodi 00:00:00 00:00:[address] 3.430.2.7 0.2.7.3.698 Ho spita .3.914000 084.8 l .8 2020-03-18 2020-03-26 Hospital Suzanne Arvizu 1.2.840 .1 [id number] Methodi 15:51:00 11:35:00 Encounter Clint King 14549.1.[address] Kristopher Forman 3.430.2.7 Hos imelda .3.153481 l .8 2020-03-22 2020-03-22 Anesthesia Liu Mccloud 1.2.840.1 [id number] Methodi 12:47:00 16:31:00 Event Clint Graham 82813.1.[address] 3.430.2.7 Hospit a .3.938877 l .8 2020-03-22 2020-03-22 Surgery Obi Kerr 1.2.840.1 [id number] 871 [id number] Methodi 12:53:00 14:38:[address] 3.430.2.7 Hospit a .3.616540 l .8 2019-11-19 2019-11-19 Office JaylenCHELSEA 1.2.840.[id number] [place] [address] 10:50:53 15:23:52 Visit Oswald S AMBULATOR 350.1.13.21 College Y 0.2.7.2.686 [id number] [facility] 300 e 2019-11-19 2019-11-19 Office CHELSEA York 1.2.840.114 [id number] 10:50:53 15:23:52 Visit Oswald S AMBULATOR 350.1.13.21 Y 0.2.7.2.686 [id number] 300 2019-11-11 2019-11-11 Emergency Wanda Henson 1.2.840.114 [id number] [facility] 17:16:00 22:21:00 Lisa Pineda 350.1.13.10 i ty [facility] [place] 4.2.7.2.686 [facility] [id number] [facility] 084 Branch 2019-11-11 2019-11-11 Emergency Wanda Henson 1.2.840.114 [id number] 17:16:00 22:21:00 Lisa Pineda 350.1.13.10 [place] 4.2.7.2.686 [place] [id number] 2019-11-11 2019-11-11 Emergency X Wanda [facility] ERT [id number] Univers 17:16:00 [facility] 2019-11-03 2019-11-03 Telephone Melany, Bro.2.840.1 [id number] Methodi 09:01:34 09:25:16 Consult Liss Baxter 58956.1.[address] 3.430.2.7 Hospit a .3.534692 l .8 2014-02-18 2014-02-18 Office [facility] [id number] [place] 00:00:00 00:00:00 Visit artie Marquez [id number] madhu [facility] 2014-02-18 2014-02-18 Lab Report [facility] [id number] [id number] Memoria 00:00:00 00:00:00 artie Marquez [id number] madhu [facility] 2013-01-23 2013-01-23 Lab Report [facility] 1702 [id number] Memoria 00:00:00 00:00:00 artie Marquez [id number] madhu [facility] Results Test Description Test Time Test Comments Results Result Comments Source SARS-CoV-2 (COVID-19) RNA [Presence] in Respiratory sp ecimen by 2021-06-13 16:18:00 GREGORIO with probe detection Test Item Value Reference Range Interpretation Comme nts SARS-CoV-2 (COVID-19) RNA [Presence] in Respiratory specimen by Not detected GREGORIO with probe detection (test code = 44348-3) Whether patient is employed in a healthcare setting (test code = Un known 21961-5) Whether the patient has symptoms related to condition of interest U nknown (test code = 41318-5) Whether the patient was hospitalized for condition of interest Unkn own (test code = 78079-5) Whether the patient was admitted to intensive care unit (ICU) for U nknown condition of interest (test code = 68620-8) Whether patient resides in a congregate care setting (test code = U nknown 80093-8) status (test code = 48096-9) Unknown Date and time of symptom onset (test code = 17051-3) Unknown - XR CHEST 1 [id number] 14:08:00 [facility] LAKEName: DARIEN HUYNH : 1945 Sex: M FAX: Sekou Jeffery [phone] [place]: St: ADM Name: DARIEN HUYNH [facility] : 1945 Age/S: 74/M [address] [place] [address] BlvdUnit #: [id number] Loc: [address] [address] Phys: Sekou Curtis MD Acct: [id number] Dis Date: Status: A DM IN PHONE #: [phone] Exam Date: 05/31/2020 1406 FAX #: [phone] Reason: HD protocol, need to make sure no TB EXAMS: CPT CODE: [id number] XR CHEST 1 V 84043 EXAM: Single view AP chest. EXAM DATE: [...] Curtis Technologist: RT Marques(Artie) Trnscrd Date/Time/By: 05/31/2020 (1408) : By: CarlitoCER Orig Print D/T: S: 05/31/2020 (4063) PAGE 1 Signed Report- XR CHEST 1 [id number] 14:08:00 [facility] LAKEName: DARIEN HUYNH : 1945 Sex: M FAX: Sekou Jeffery [phone] [place]: St: DIS Name: AMINADARIEN [facility] : 1945 Age/S: 74/M [address] [place] [address] BlvdUnit #: [id number] Loc: [place] [address] Phys: Sekou Curtis MD Acct: [id number] Dis Date: Status: D IS IN PHONE #: [phone] Exam Date: 05/31/20201405 FAX #: [phone] Reason: HD protocol, need to make sure no TB EXAMS: CPT CODE: [id number] XR CHEST 1 V 41597 EXAM: Single view AP chest. EXAM DATE: [...] Curtis Technologist: RT Marques(Artie) Trnjanice Date/Time/By: 05/31/2020 (0191) : By: CarlitoCER Orig Print D/T: S: 05/31/2020 (1899) PAGE 1 Signed ReportBASIC METABOLIC [id number] 05:15:00 Test Item Value Reference Range Interpretation Comments SODIUM (test code = NA) 141 mEq/L 134-147 N POTASSIUM (test code = 3.9 mEq/L 3.4-5.0 N K) CHLORIDE (test code = 104 mEq/L 100-108 N CL) CARBON DIOXIDE (test 27 mEq/l 21-33 N code = CO2) ANION GAP (test code = 14 0-20 N GAP) GLUCOSE (test code = 86 mg/dL 70-110 N GLU) BLOOD UREA NITROGEN 45 mg/dL 7-18 H (test code = BUN) GLOMERULAR FILTRATION 12.6 70-80 L Units of measure = RATE (test code = GFR) ml/mi n/1.73 m2 CREATININE (test code = 4.6 mg/dL 0.6-1.3 H CREAT) CALCIUM (test code = 8.5 mg/dL 8.0-10.5 N CA) [id number] 05:15:00 Test Item Value Reference Range Interpretation Comments ALBUMIN (test code = ALB) 3.10 g/dL 3.4-5.0 L [id number] 05:15:00 Test Item Value Reference Range Interpretation Comments PREALBUMIN (test code = PREALB) 27.0 mg/dL 16.0-40.0 N [id number] 23:17:00 Test Item Value Reference Range Interpretation Comments GLUBED (test code = 95 MG/DL 70-110 N Performe d by certified GLUBED) traffic control operator at [place] [facility] BASIC METABOLIC [id number] 09:36:00 Test Item Value Reference Range Interpretation [...] sly reported CA) result: 8.2 mg/dLEdited by: [facility] on 05/29/20:102596 0935: CA previ ously reported as: 8. 2 mg/dL BASIC METABOLIC [id number] 07:53:00 Test Item Value Reference Range Interpretation [...] 8.2 mg/dL 8.0-10.5 N CA) BASIC METABOLIC [id number] 04:28:00 Test Item Value Reference Range Interpretation [...] 9.3 mg/dL 8.0-10.5 N CA) CBC W/AUTO [id number] 08:31:00 Test Item Value Reference Range Interpretation [...] (test code NO = MDIFF) BASIC METABOLIC [id number] 07:59:00 Test Item Value Reference Range Interpretation [...] CA) - USG NDL PLACEMENT (Bxg/Asp)2020-05-24 15:12:00 [facility] : 1945 Sex: M Name: DARIEN HUYNH [facility] : 1945 Age/S: 74 / M [address] [place] [address] Bl Unit #: [id number] Loc: [place] [address] Phys: Jonathan Sheikh NPAcct: [id number] Dis Date: Status: ADM IN PHONE #:[phone] Exam Date: 05/24/2020 1434 FAX #: [phone] Reason: right aka fluid collection EXAMS: CPT CODE: [id number] USG NDL PLACEMENT (Bxg/Asp) 62911 PROCEDURE: Ultrasound-guided right knee stump fluid collection. [...] (1511) t.RYANR.MP37 Orig Print D/T: S: 05/24/2020 (678) Probe: PAGE 1 Signed Report- USG NDL PLACEMENT (Bxg/Asp)2020-05-24 15:12:00 [facility] : 1945 Sex: M Name: DARIEN HUYNH [facility] : 1945 Age/S: 74 / M [address] [place] [address] Unit #: [id number] Loc: [place] [address] Phys: Jonathan Sheikh NPAcct: [id number] Dis Date: Status: DIS IN PHONE #:[phone] Exam Date: 05/24/2020 1434 FAX #: [phone] Reason: right aka fluid collection EXAMS: CPT CODE: [id number] USG NDL PLACEMENT (Bxg/Asp) 59373 PROCEDURE: Ultrasound-guided right knee stump fluid collection. [...] Arvizu D.O. CC: Sekou Curtis; Jonathan Sheikh DOCUMENT IMAGE TECHNICIAN Technologist: Rosemarie Ayon Trnscb Date/Time: 05/24/2020 (151) t.RYANR.MP37 Orig Print D/T: S: 05/24/2020 (151) Probe: PAGE 1 Signed Report- CT LOWER EXTRM W/O C [id number] 18:02:00 [facility] : 1945 Sex: M Name: DARIEN HUYNH [facility] : 1945 Age/S: 74 / M [address] [place] [address] Unit #: [id number] Loc: [place] [address] Phys: Jonathan Sheikh NPAcct: [id number] Dis Date: Status: ADM IN PHONE #:[phone] Exam Date: 05/23/2020 1728 FAX #: [phone] Reason: right bka, r/o fluid collection EXAMS: CPT CODE: [id number] [place] L[place] EXTRM W/[place] [address] [place] right femur without contrast. INDICATION: Right [...] iterative reconstruction techniques. DLP: 566 mGy-cm FINDINGS: Monzl-pkv-hygg amputation has been performed. A permeative pattern [...] Sekou Curtis; Jonathan Sheikh NP Technologist:David Aguirre, (R)(CT) CTDI: DLP: Trnscb Date/Time: 05/23/2020 (1801) CarlitoSG9 Orig Print D/T: S: 05/23/2020 (319) PAGE 1 Signed Report- CT LOWER EXTRM W/O C [id number] 18:02:00 [facility] JEANNETTE SMITHName: DARIEN HUYNH : 1945 Sex: M Name: DARIEN HUYNH [facility] Max Smith : 1945 Age/S: 74 / M [address] Unit #: [id number] Loc: [place] [address] Phys: Jonathan Sheikh NPAcct: [id number] Dis Date: Status: DIS IN PHONE #:[phone] Exam Date: 05/23/20201727 FAX #: [phone] Reason: right bka, r/o fluid collection EXAMS: CPT CODE: [id number] CT L[place] EXTRM W/[place] [address] CT right femur without contrast. INDICATION: Right [...] iterative reconstruction techniques. DLP: 566 mGy-cm FINDINGS: Kekyk-tgx-xjwf amputation has been performed. A permeative pattern [...] Mena M.D. CC: Sekou Curtis; Jonathan Sheikh DOCUMENT IMAGE TECHNICIAN Technologist:David Aguirre, RT(R)(CT) CTDI: DLP: Trnscb Date/Time: 05/23/2020 (1801) t.SDR.SG9 Orig Print D/T: S: 05/23/2020 (1805) PAGE 1 Signed ReportBASIC METABOLIC [id number] 13:38:00 Test Item Value Reference Range Interpretation [...] code = 9.6 mg/dL 8.0-10.5 N CA) [id number] 13:38:00 Test Item Value Reference Range Interpretation Comments PHOSPHOROUS (test code = PHOS) 3.9 MG/DL 2.5-4.9 N [id number] 13:36:00 Test Item Value Reference Range Interpretation Comments ALBUMIN (test code = ALB) 3.20 g/dL 3.4-5.0 L [id number] 13:36:00 Test Item Value Reference Range Interpretation Comments PREALBUMIN (test code = PREALB) 14.3 mg/dL 16.0-40.0 L CBC W/AUTO [id number] 13:15:00 Test Item Value Reference Range Interpretation [...] (test code NO = MDIFF) SED RATE [id number] 08:19:00 Test Item Value Reference Range Interpretation Comments SED RATE WESTERGREN (test code = 114 mm/hr 0-15 H SEDW) [id number] 08:09:00 Test Item Value Reference Range Interpretation Comments PREALBUMIN (test code = PREALB) 13.1 mg/dL 16.0-40.0 L C REACTIVE [id number] 08:08:00 Test Item Value Reference Range Interpretation Comments C REACTIVE PROTEIN (test code = 192.0 mg/L <10.0 H CRP) CBC W/AUTO [id number] 07:57:00 Test Item Value Reference Range Interpretation [...] MDIFF) - XR HIP W/PEL UNI 2+V [id number] 18:35:00 [facility]ame: DARIEN HUYNH : 1945 Sex: M FAX: Sekou Jeffery [phone] [place]: St: ADM FAX: Dusty Smiley [phone] Name: DARIEN HUYNH [facility] : 1945 Age/S: 74/M [address] [place] [address] Unit #: [id number] Loc: [address] [address] Phys: Dusty Smiley NP Acct: [id number] Dis Date: Status: ADM IN PHONE #: [phone] Exam Date: 05/21/20201734 FAX #: [phone] Reason: left hip pain EXAMS:CPT CODE: [id number] XR HIP W/PEL UNI 2+[place] [address] 2+ RADIOGRAPHIC VIEWS LEFT HIP INDICATION: left [...] Signed Report- XR HIP W/PEL UNI 2+V [id number] 18:35:00 [facility] [place] DARIEN HUYNH : 1945 Sex: M FAX: Rubina CurtisSekou X [phone] [place]: St: DIS FAX: Dusty Smiley [phone] Name: DARIEN HUYNH [facility] [place] : 1945 Age/S: 74/M [address] [place] [address] Unit #: [id number] Loc: [place] [address] 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 Acct: [id number] Dis Date: Status: DIS IN PHONE #: [phone] Exam Date: 05/21/20201734 FAX #: [phone] Reason: left hip pain EXAMS:CPT CODE: [id number] XR HIP W/PEL UNI 2+[place] [address] 2+ RADIOGRAPHIC VIEWS LEFT HIP INDICATION: left [...] CC: Sekou Curtis; Dusty Smiley NP Technologist: Katie Romero RT(R) Trnscrd Date/Time/By: 05/21/2020 (1834) : By: CarlitoJB33 [...] (test code NO = MDIFF) BASIC METABOLIC [id number] 07:40:00 Test Item Value Reference Range Interpretation [...] 9.1 mg/dL 8.0-10.5 N CA) COMPREHENSIVE METABOLIC [id number] 06:03:00 Test Item Value Reference Range Interpretation [...] TOTAL (test code = ALKP) CBC W/AUTO [id number] 05:49:00 Test Item Value Reference Range Interpretation [...] (test code NO = MDIFF) BASIC METABOLIC [id number] 08:43:00 Test Item Value Reference Range Interpretation [...] code = 9.0 mg/dL 8.0-10.5 N CA) [id number] 08:43:00 Test Item Value Reference Range Interpretation Comments PHOSPHOROUS (test code = PHOS) 4.7 MG/DL 2.5-4.9 N CBC W/AUTO [id number] 08:29:00 Test Item Value Reference Range Interpretation [...] (test code NO = MDIFF) BASIC METABOLIC [id number] 07:42:00 Test Item Value Reference Range Interpretation [...] 9.5 mg/dL 8.0-10.5 N CA) BASIC METABOLIC [id number] 09:55:00 Test Item Value Reference Range Interpretation [...] code = 8.7 mg/dL 8.0-10.5 N CA) [id number] 09:55:00 Test Item Value Reference Range Interpretation Comments PHOSPHOROUS (test code = PHOS) 5.2 MG/DL 2.5-4.9 H [id number] 09:55:00 Test Item Value Reference Range Interpretation Comments MAGNESIUM (test code = MAG) 1.89 mg/dL 1.80-2.40 N CBC W/AUTO [id number] 09:28:00 Test Item Value Reference Range Interpretation [...] REQUIRED (test code = MDIFF) CBC W/AUTO [id number] 09:28:00 Test Item Value Reference Range Interpretation [...] (test code NO = MDIFF) ACUTE HEPATITIS [id number] 13:08:00 Test Item Value Reference Range Interpretation [...] COMMENTS: At start of hemodialysisAB HEPATITIS B [id number] 13:08:00 Test Item Value Reference Range Interpretation Comments AB HEPATITIS B 22.1 mIU/mL See_Comment Status of I mmunity SURFACE (test code = HBSAB) Anti-HBs Level --- I nconsis tent with Immun ity 0 .0 - 9.9Consistent w ith Immunity >9.9Performed A t: HD [facility] [address] [id number] jaswinder Peralta MD Ph:[phone] [Automated mess age] The system [employer] generated this result transmitted ref erence range: Immunity >9.9. The reference r za was not used to interpret this result as normal/abnor mal. COMMENTS: At start of hemodialysisACUTE HEPATITIS [id number] 10:00:00 Test Item Value Reference Range Interpretation [...] COMMENTS: At start of hemodialysisAB HEPATITIS B [id number] 10:00:00 Test Item Value Reference Range Interpretation Comments AB HEPATITIS B SURFACE (test code = HBSAB) COMMENTS: At start of hemodialysisBASIC METABOLIC [id number] 09:23:00 Test Item Value Reference Range Interpretation [...] 8.5 mg/dL 8.0-10.5 N CA) CBC W/AUTO [id number] 09:16:00 Test Item Value Reference Range Interpretation [...] (test code NO = MDIFF) RENAL FUNCTION [id number] 06:58:00 Test Item Value Reference Range Interpretation [...] code = 3.0 MG/DL 2.5-4.9 N PHOS) [id number] 06:58:00 Test Item Value Reference Range Interpretation Comments MAGNESIUM (test code = MAG) 1.81 mg/dL 1.80-2.40 N CBC W/AUTO [id number] 06:49:00 Test Item Value Reference Range Interpretation [...] (test code NO = MDIFF) CBC W/AUTO [id number] 06:45:00 Test Item Value Reference Range Interpretation [...] code = MDIFF) - CT HEAD/BRAIN W/O [id number] 04:29:00 [facility] : 1945 Sex: M Name: DARIEN HUYNH [facility] : 1945 Age/S: 74 / M [address] [place] [address] Blvd Unit #: [id number] Loc: [place] [address] Phys: Fausto [facility]ino [phone] Dis Date: Status: ADM IN PHONE #:[phone] Exam Date: 05/13/20204 FAX #: [phone] Reason: TRAUMA EXAMS: CPT CODE: [id number] CT HEAD/BRAIN W/O CONT 37647 STUDY: - CT HEAD/BRAIN W/O CONT 05/13/2020 5:00 AM Ordering Physician: Fausto Espino MD Patient Name: DARIEN HUYNH MR: [id number] : 1945; Age: 74 years y/o Male [...] 1 Signed Report (CONTINUED) Name: DARIEN HUYNH [facility] : 1945 Age/S: 74 / M [address] [place] [address] Unit #: [id number] Loc: [place] [address] Phys: Fausto Espino MD Acct: [id number] Dis Date: Status: ADM IN PHONE #: [phone] Exam Date: FAX #: [phone] Reason: TRAUMA EXAMS: CPT CODE: [id number] CT HEAD/BRAINW/O CONT 72938 <Continued> MASTOIDS: Clear. ORBITS: The globes are [...] Renetta(R)(CT); Edgar CTDI: DLP: Trnscb Date/Time: 05/13/2020 (0429) t.SDR.TP6 Orig Print D/T: S: 05/13/2020 (0436) PAGE 2 Signed Report- CT HEAD/BRAIN W/O [id number] 04:29:00 [facility] : 1945 Sex: M Name: DARIEN HUYNH [facility] : 1945 Age/S: 74 / M [address] [place] [address] Unit #: [id number] Loc: [place] [address] Phys: [facility]usto [facility]ino [facility] [phone] Dis Date: Status: DIS IN PHONE #:[phone] Exam Date: 05/13/20204 FAX #: [phone] Reason: TRAUMA EXAMS: CPT CODE: [id number] CT HEAD/BRAIN W/O CONT 50477 STUDY: - CT HEAD/BRAIN W/O CONT 05/13/2020 5:00 AM Ordering Physician: Fausto Espino MD Patient Name: DARIEN HUYNH MR: [id number] : 1945; Age: 74 years y/o Male [...] 1 Signed Report (CONTINUED) Name: [facility] [place] [facility] 1945 Age/S: 74 / M [address] [place], [place] [address]vd Unit #: [id number] Loc: [place] [address] Phys: Fausto Espino MD Acct: [id number] Dis Date: Status: DIS IN PHONE #: [phone] Exam Date: FAX #: [phone] Reason: TRAUMA EXAMS: CPT CODE: [id number] CT HEAD/BRAINW/O CONT 26792 <Continued> MASTOIDS: Clear. ORBITS: The globes are [...] Edgar CTDI: DLP: Trnscb Date/Time: 05/13/2020 (428) CarlitoTP6 Orig Print D/T: S: 05/13/2020 (4205) PAGE 2 Signed ReportCOVID 19 Asymptomatic IH [id number] 03:09:00 Test Item Value Reference Range Interpretation [...] high or waivedcomplexit y tests. BASIC METABOLIC [id number] 02:14:00 Test Item Value Reference Range Interpretation [...] 8.5 mg/dL 8.0-10.5 N CA) HEPATIC FUNCTION [id number] 02:14:00 Test Item Value Reference Range Interpretation [...] 112 IUnit/L 20-125 N code = ALKP) [id number] 02:14:00 Test Item Value Reference Range Interpretation Comments LIPASE (test code = LIP) 185 U/L 13-57 H [id number] 02:14:00 Test Item Value Reference Range Interpretation [...] or Legal orEmployment ev aluation purposes. PROTHROMBIN [id number] 02:11:00 Test Item Value Reference Range Interpretation [...] o prevent recurre nt infarct). THROMBOPLASTIN TIME [id number] 02:11:00 Test Item Value Reference Range Interpretation Comments THROMBOPLASTIN TIME 31.8 Seconds 25.0-39.5 N Ther apeutic PARTIAL (test code = Range: 50.4 - 88.3 PTT) Seconds Effective 05/27/2018 PROTHROMBIN [id number] 02:10:00 Test Item Value Reference Range Interpretation [...] o prevent recurre nt infarct). THROMBOPLASTIN TIME [id number] 02:10:00 Test Item Value Reference Range Interpretation Comments THROMBOPLASTIN TIME PARTIAL (test Seconds 25.0-39.5 code = PTT) CBC W/AUTO [id number] 01:59:00 Test Item Value Reference Range Interpretation [...] NO = MDIFF) - CT HEAD/BRAIN W/O [id number] 23:15:00 [facility] : 1945 Sex: M Name: DARIEN HUYNH [facility] : 1945 Age/S: 74 / M [address] Unit #: [id number] Loc: [place] [address] Phys: Undefined Provider Acct: [id number] Dis Date: Status: REG REF PHONE #: [phone] Exam Date: 05/12/2020 5904 FAX #: Reason: s/p fall Report Has Been Amended EXAMS: CPT: [id number] CT HEAD/BRAIN W/O CONT 46350 Addendum - 05/12/2020 SIGNED 05/12/[address]: [id number]/CTHDBRWO Findings were notified to laborer tan house Huyen at 11:15 PM on 05/12/2020. at 2315 Reported and signed by: Kaela Lindsey M.D. Transcribed: 05/12/2020 (2316) t.SDR.TH15 Report EXAM: - CT HEAD/BRAIN W/O [...] 1 Signed Report (CONTINUED) Name: DARIEN HUYNH [facility] [place] : 1945 Age/S: 74 / M [address] Unit #: [id number] Loc: [id number] Phys: Undefined Provider Acct: [id number] Dis Date: Status: REG REF PHONE #: [phone] Exam Date: 05/12/20202213 FAX #: Reason: s/p fall Report Has Been Amended EXAMS: CPT: [id number] CT HEAD/BRAIN W/O CONT 96665 <Continued> frontoparietal lobe without midline shift or [...] PAGE 2 Signed Report- CT HEAD/BRAIN W/O [id number] 23:15:00 [facility] : 1945 Sex: M Name: DARIEN HUYNH [facility] : 1945 Age/S: 74 / M [address] Unit #: [id number] Loc: [place] [address] Phys: Undefined Provider Acct: [id number] Dis Date: Status: REG REF PHONE #: [phone] Exam Date: 05/12/20203 FAX #: Reason: s/p fall Report Has Been Amended EXAMS: CPT: [id number] CT HEAD/BRAIN W/O CONT 63037 Addendum - 05/12/2020 SIGNED 05/12/2020 ADDENDUM: [id number] CT/CTHDBRWO Findings were notified to laborer tan house Huyen at 11:15 PM on 05/12/2020. at 2315 Reported and signed by: Kaela Lindsey M.D. Transcribed: 05/12/2020 (2318) t.SDR.TH15 Report EXAM: - CT HEAD/BRAIN W/O [...] HUYNH : 1945 Age/S: 74 / M [address] Unit #: [id number] Loc: [place], [place] Phys: Undefined Provider Acct: [id number] Dis Date: Status: REG REF PHONE #: [phone] Exam Date: 05/12/20204 FAX #: Reason: s/p fall Report Has Been Amended EXAMS: CPT: [id number] CT HEAD/BRAIN W/O CONT 94509 <Continued> frontoparietal lobe without midline shift or [...] PAGE 2 Signed Report- CT HEAD/BRAIN W/O [id number] 22:51:00 [facility] : 1945 Sex: M Name: DARIEN HUYNH : 1945 Age/S: 74 / M [address] Unit #: [id number] Loc: [place] [address] Phys: Undefined Provider Acct: [id number] Dis Date: Status: REG REF PHONE #: [phone] Exam Date: 05/12/2020 7134 FAX #: Reason: s/p fall EXAMS: CPT: [id number] CT HEAD/BRAIN W/O CONT 17847 EXAM: -CT HEAD/BRAIN W/O CONT LOCATION: H61 [...] HUYNH : 1945 Age/S: 74 / M [address] Unit #: [id number] Loc: [place] [address] Phys: Undefined Provider Acct: [id number] Dis Date: Status: REG REF PHONE #: [phone] Exam Date: 05/12/20202213 FAX #: Reason: s/p fall EXAMS: CPT: [id number] CT HEAD/BRAIN W/O CONT 34413 <Continued> Electronically Signedby Armida Lindsey on 05/12/2020 at 2251 Reported and signed by: Kaela Lindsey M.D. CC: Technologist:RT Sharon(R)(CT); ... CTDI: DLP: Trnscb Date/Time: 05/12/2020 (2250) t.RYANR.TH15 Orig Print D/T: S: 05/12/2020 (2254) PAGE 2 Signed Report- CT C-SPINE W/O [id number] 22:40:00 [facility] : 1945 Sex: M Name: DARIEN HUYNH [facility] : 1945 Age/S: 74 / M [address] [facility] Unit #: [id number] Loc: [place] [address] Phys: Undefined Provider Acct: [id number] Dis Date: Status: REG REF PHONE #: [phone] Exam Date: 05/12/20202213 FAX #: Reason: s/p fall EXAMS: CPT: [id number] CT C-SPINE W/O CONT 63428 EXAM: -CT C-SPINE W/O CONT LOCATION: H61 [...] 1 Signed Report (CONTINUED) Name: [facility] [place] : 1945 Age/S: 74 / M [address] [address] Unit #: [id number] Loc: [place] [address] Phys: Undefined Provider Acct: [id number] Dis Date: Status: REG REF PHONE #: [phone] Exam Date: 05/12/2020 4982 FAX #: Reason: s/p fall EXAMS: CPT: [id number] CT C- SPINE W/O CONT 07780 <Continued> spinal canal stenosis. C3-C4: Diffuse disc [...] (2239) t.SDR.TH15 Orig Print D/T: S: 05/12/2020 (9413) PAGE 2 Signed Report- CT C-SPINE W/O [id number] 22:40:00 [facility] : 1945 Sex: M Name: DARIEN HUYNH [facility] : 1945 Age/S: 74 / M [address] [address] Unit #: [id number] Loc: [place] [address] Phys: Undefined Provider Acct: [id number] Dis Date: Status: REG REF PHONE #: [phone] Exam Date: 05/12/20202213 FAX #: Reason: s/p fall EXAMS: CPT: [id number] CT C-SPINE W/O CONT 64662 EXAM: -CT C-SPINE W/O CONT LOCATION: H61 [...] HUYNH : 1945 Age/S: 74 / M [address] [address] Unit #: [id number] Loc: [place] [address] Phys: Undefined Provider Acct: [id number] Dis Date: Status: REG REF PHONE #: [phone] Exam Date: 05/12/20202213 FAX #: Reason: s/p fall EXAMS: CPT: [id number] CT C- SPINE W/O CONT 92650 <Continued> spinal canal stenosis. C3-C4: Diffuse disc [...] Sharon(Artie)(CT); ... CTDI: DLP: Trnscb Date/Time: 05/12/2020 (2240) t.RYANR.TH15 Orig Print D/T: S: 05/12/2020 (8475) PAGE 2 Signed ReportAFB [id number] 05:13:59 Test Item Value Reference Range Interpretation Comments AFB culture isolate No growth after 6 (test code = 543-9) weeks of incubation. [facility] ChristoferFungus [id number] 06:15:49 Test Item Value Reference Range Interpretation Comments Fungus culture isolate No growth after 4 (test code = 1441) weeks of incubation. [facility]OR [place] < 1 [id number] 21:39:42EXAMINATION: OR FL < 1 HOUR C-arm [...] be issued by the physician performing the procedure.1D2[facility]03[facility] Anaerobic [id number] 14:47:42 Test Item Value Reference Range Interpretation Comments Anaerobic culture No anaerobic organisms isolate (test code = isolated. 552) [facility] CenterAFB [id number] 07:48:01 Test Item Value Reference Range Interpretation Comments AFB stain (test code = No acid fast bacilli 676-7) (AFB) seen. [facility] CenterAerobic [id number] 07:48:01 Test Item Value Reference Range Interpretation Comments Aerobic culture isolate No growth after 3 (test code = 498) days. [facility] CenterFungus [id number] 07:48:01 Test Item Value Reference Range Interpretation Comments Fungus smear (test code = No fungi observed. 1443) [facility] CenterGram [id number] 07:48:01Gram stain isolateFew WBC'sNo organisms seen Comment: Specimen InformationSpecimen Source: TissueSpecimen Site: Femur: Right femoral canal tissue [facility] [id number] 21:19:54 Test Item Value Reference Range Interpretation Comments Case number (test code = [id number]) Surgical pathology See link below for report (test code = PDF Lab Report 2257) Result status (test code This is Final Report = [id number]) for [id number] [facility] carotid [id number] 00:39:00 Vascular Ultrasound Laboratory Carotid Artery Duplex Report [address] [facility], [place] [address], [place] [address] For quality control assessor purposes, the categorization of the degree of the stenosis of this exam is based on criteria described in the IAC carotid stenosis grading white paper( www.intersocietal.org/Vascular) and Shagufta Andrews., Oz Armendariz, et al. Carotid artery stenosis: maya-scale and Doppler US diagnosis--Society of Radiologists in Ultrasound Consensus Conference. Radiology. 2003 Nov; 229(2):340-6. Pat.Name: DARIEN HUYNH Pat.ID: [id number] St.Date: 03/23/2020 Refer.MD: BEAR MARIEE MD Exam Time: 11:25:00 AM Study Type:Carotid Height: 68in Weight: 186lb BSA: 1.98 m2 Age: 9 1945,74Y Sex: MALE Sonogrphr: NOEMI Chapman Pat. Stat.:Inpatient Room: [address] Vol: BE, CPT - 4: 10455 Echo Event ID:[id number] Order ID: [id number] Reason for Study:Cervical bruit, no prior carotid [...] EDV 23 cm/sLeft ICA Mid ICA Mid WGA447 cm/s Left ICA Prox ICA Prox PSV [...] [facility] Laboratory Carotid Artery Duplex Report [address] [facility], [place] [address], [place] [address] For quality control assessor purposes, the categorization of the degree of the stenosis of this exam is based on criteria described in the IAC carotid stenosis grading white paper( www.intersocietal.org/Vascular) and Shagufta Andrews., Ritu Armendariz., et al. Carotid artery stenosis: maya-scale and Doppler US diagnosis--Society of Radiologists in Ultrasound Consensus Conference. Radiology. 2003 Nov; 229(2):340-6. Pat.Name: DARIEN HUYNH Pat.ID: [id number] .Date: 03/23/2020 Refer.MD: BEAR MARIEE MD Exam Time: 11:25:00 AM Study Type:Carotid Height: 68in Weight: 186lb BSA: 1.98 m2 Age: 9 1945,74Y Sex: MALE Sonogrphr: NOEMI Chapman Pat. Stat.:Inpatient Room: [address] Vol: BE, CPT - 4: 69980 Echo Event ID:[id number] Order ID: [id number] Reason for Study:Cervical bruit, no prior carotid [...] 1.14 Signed 03/23/2020 06:39 PMAngel Liang MD, [facility]2021-02-09 19:25:28Tejal Simpson 03/22/2020 1:45 PMAirway Date/Time: 03/22/2020 1:00 PM Location: OR Performed by: FIELD CROP FARM WORKER/AAAnesthesiologist: Tahmina Mccloud/[employer] WORKER/AA: Tejal SimpsonAuthorized by: Liu Mccloud Urgency: ElectiveDifficult [...] First attempt using Sheikh 2 blade by [employer]. Second attempt with MD with MAC 3. Grade 3b view, secondary to neck stiffness.Grade 1 view with glidescope. ETT passed atraumatically.[facility] CenterTrans[facility]ocardi[facility] Complete, (w Contrast, Strain and 3D if needed)2020-03-19 20:20:00 Echocardiography Report [id number] [place] [address] Pat.Name: DARIEN HUYNH Pat.ID: [id number] .Date: 03/19/2020 Refer.MD: CLINT KING DO Exam Time: 11:43:00 AM Study Type:Routine Echo Height: 68in Weight: 185.61lb BSA: 1.98 m2 Age: 910/[age]Y Sex: MALE BP: 110/57 HR: 70 bpm Sonogrphr: NILSON Conde Pat. Stat.:Inpatient Room: [facility] Study Status:Final Echo Event ID:[id number] Order ID: [id number] Reason for Study:Perioperative function eval without cardiac [...] estimate PA systolic pressure. MEASUREMENTS:------- 2DParasternal Long [place] Ao An 2.2 cm LVPWd 1.3 cm [...] - 03/19/2020 2:20 PM CST Echocardiography Report [id number] [facility], [place] [place] [address], [place] [address] Pat.Name: DARIEN HUYNH.ID: [id number] .Date: 03/19/2020 Refer.MD: CLINT KING DO Exam Time: 11:43:00 AM Study Type:Routine Echo Height: 68in Weight:185.61lb BSA: 1.98 m2 Age: 9 1945,74Y Sex: MALE BP: 110/57 HR: 70 bpm Sonogrphr: NILSON Conde Pat. Stat.:Inpatient Room: [facility] Study Status:Final Echo Event ID:[id number] Order ID: [id number] Reason for Study:Perioperative function eval without cardiac [...] estimate PA systolic pressure. MEASUREMENTS: 2DParasternal Long [place] Ao An 2.2 cm LVPWd 1.3 cm [...] 3.7 l/m/m2 Signed 03/19/2020 02:20 Dodie Sarabia M.D.[facility] Lower Extremity Wo Contrast Fijvc5705-21-06 13:07:30EXAMINATION: MRI LOWER EXTREMITY WO CONTRAST RIGHT [...] of the tibia. 1D2RAD_PS08Hm Interface, Radiology Results 03/19/2020 7:14 AM CST EXAMINATION: MRI LOWER [...] medially, beyond the cortex of the tibia.1D2RAD_PS08[facility] THIGH WO CONTRAST NZQKV3431-07-15 12:29:55EXAMINATION: MRI KNEE WO CONTRAST RIGHT, MRI [...] with the fluid surrounding the tibial stem. [facility]-QEOYQE1Zy Interface, Radiology Results 03/19/2020 6:33 AM CST [...] communicate with the fluid surrounding the tibial stem.HMRM-RXAWXY0AgphgecezSt. [facility] Knee Right Wo Eslapumn2967-64-63 12:29:55EXAMINATION: MRI KNEE WO CONTRAST RIGHT, MRI [...] with the fluid surrounding the tibial stem. 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 Infection cannot be excluded. There is a joint effusion present. There is no acute fracture or dislocation. There are vascular calcifications. [facility]1RX1440 J8Z Interface, Radiology Results 03/18/2020 5:17 PM [...] acute fracture or dislocation. 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 Infection cannot be excluded. Bones are osteopenic. No definite acute fracture is seen. 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 Infection cannot be excluded. Bones are osteopenic. No definite acute fracture is seen.[facility]-3WX7772R3JNhznbefynGrace Medical Center M4004-22-40 02:22:00 Test Item Value Reference Range Interpretation Comments TROPONIN I (test <0.012 See_Comment [Automated code = 5702482576) message] The system which generated this result [...] ? Lab Interpretation Normal (test code = 25996-5) [facility] Q3110-54-41 02:20:00 Test Item Value Reference Range Interpretation Comments TROPONIN I (test <0.012 See_Comment [Automated code = 5934406868) message] The system which generated this result [...] ? Lab Interpretation Normal (test code = 83098-5) [facility] Test Item Value Reference Range Interpretation Comments APPEARANCE (test code = Clear Clear 3737878165) COLOR (test code = Yellow Yellow 8887344732) PH (test code = 4.8-8.0 2804981619) SP GRAVITY (test code = 1.003-1.030 3434759029) GLU U QUAL (test code = Normal Normal 2617420644) BLOOD (test code = Negative Negative 9006610286) KETONES (test code = Negative Negative 5718153393) PROTEIN (test code = 100 mg/dL Negative A 2887-8) UROBILIN (test code = Normal Normal 4564039599) BILIRUBIN (test code = Negative Negative 7245100679) NITRITE (test code = Negative Negative 5051357318) LEUK AJ (test code = Negative Negative 3145294201) RBC/HPF (test code = See_Comment H [Autom ated message] 2021093347) The system [employer] generated this result transmit amado reference range : 0 - 3 HPF. The refe rence range was not u sed to interpret th is result as normal/abnormal . WBC/HPF (test code = <1 See_Comment [Autom ated message] 0563661837) The system [employer] generated this result transmit amado reference range : 0 - 5 HPF. The refe rence range was not u sed to interpret th is result as normal/abnormal . BACTERIA (test code = Few Negative A 6253504741) MUCOUS (test code = Slight Negative LPF A 9614369141) SQ EPITH (test code = <1 HPF 1751857682) Lab Interpretation (test Abnormal code = 47765-3) [facility] 00:21:00 Test Item Value Reference Range Interpretation Comments APPEARANCE (test code = Clear Clear 8072160878) COLOR (test code = Yellow Yellow 1233971261) PH (test code = 4.8-8.0 5717817420) SP GRAVITY (test code = 1.003-1.030 0968896411) GLU U QUAL (test code = Normal Normal 5438702992) BLOOD (test code = Negative Negative 2440593625) KETONES (test code = Negative Negative 8811323430) PROTEIN (test code = 100 mg/dL Negative A 2887-8) UROBILIN (test code = Normal Normal 2216072179) BILIRUBIN (test code = Negative Negative 5520572501) NITRITE (test code = Negative Negative 7882479542) LEUK AJ (test code = Negative Negative 7311345730) RBC/HPF (test code = See_Comment H [Autom ated message] 8191344685) The system [employer] generated this result transmit amado reference range : 0 - 3 HPF. The refe rence range was not u sed to interpret th is result as normal/abnormal . WBC/HPF (test code = <1 See_Comment [Autom ated message] 2074914339) The system [employer] generated this result transmit amado reference range : 0 - 5 HPF. The refe rence range was not u sed to interpret th is result as normal/abnormal . BACTERIA (test code = Few Negative A 3169943437) MUCOUS (test code = Slight Negative LPF A 9671463097) SQ EPITH (test code = <1 HPF 2611676174) Lab Interpretation (test Abnormal code = 54871-2) [facility] 1 [id number] 23:24:26 No acute cardiopulmonary abnormality. Preliminary Report [...] reviewed this study and agree with theabove report.[facility] 1 [id number] 23:24:26 No acute cardiopulmonary abnormality. Preliminary Report Dictated by Resident: Kavita Eden MD., have reviewed this study and agree with theabove report.EXAM: XR CHEST 1 VWHISTORY: palpitations COMPARISON: None Technique: ?AP view radiograph of the chest FINDINGS: The lungs are clear. No focal consolidation, pleural effusion orpneumothorax is seen. The cardiac silhouette is normal in size. No acute bony abnormality. [facility], Radiant Results Inft User - 11/11/2019 6:25 PM CDTEXAM: XR CHEST 1 VWHISTORY: palpitations COMPARISON: NoneTechnique: AP view radiograph of the ch estFINDINGS:The lungs are clear. No focal consolidation, pleural effusion orpneumothorax is seen. The cardiac silhouette is normal in size.No acute bony abnormality.IMPRESSIONNo acute cardiopulmonary abnormality.Preliminary Report Dictated by Resident: Kavita Bradshaw MD., have reviewed this study and agree with theabove report.[facility] COMP. METABOLIC PANEL ([id number])2019-11-11 23:16:00 Test Item Value Reference Range Interpretation Comments NA (test code = 137 mmol/L 135-145 9173846279) K (test code = 4.0 mmol/L 3.5-5 2295346177) CL (test code = 94 mmol/L 98-108 L 6205600575) CO2 TOTAL (test code = 29 mmol/L 23-31 2987832421) AGAP (test code = 2-16 9303007695) BUN (test code = 63 mg/dL 7-23 H 6399378075) GLUCOSE (test code = 142 mg/dL 70-110 H 0865966028) CREATININE (test code = 5.82 mg/dL 0.6-1.25 H 8471615163) TOTAL BILI (test code = 0.4 mg/dL 0.1-1.3 0038882689) CALCIUM (test code = 9.8 mg/dL 8.6-10.6 7811923222) T PROTEIN (test code = 7.5 g/dL 6.3-8.2 3392077944) ALBUMIN (test code = 4.2 g/dL 3.5-5 0999802622) ALK PHOS (test code = 100 U/L 34-122 7493172525) ALTv (test code = 14 U/L 5-50 1742-6) AST(SGOT) (test code = 27 U/L 13-40 4331517120) eGFR Calculation mL/min/1.73m2 (Non-) (test code = 2797718128) eGFR Calculation mL/min/1.73m2 () (test code = 0378234330) JACQUELYN (test code = JACQUELYN) Association of [...] tests). Lab Interpretation Abnormal (test code = 49525-1) [facility]2020-[facility]-30 23:16:00 Test Item Value Reference Range Interpretation Comments MAGNESIUM (test code = 3395503753) 2.5 mg/dL 1.7-2.4 H Lab Interpretation (test code = Abnormal 24580-0) [facility] ([id number])2019-11-11 23:16:00 Test Item Value Reference Range Interpretation Comments NA (test code = 137 mmol/L 135-145 9892137126) K (test code = 4.0 mmol/L 3.5-5 0984432456) CL (test code = 94 mmol/L 98-108 L 6254530253) CO2 TOTAL (test code = 29 mmol/L 23-31 0064133876) AGAP (test code = 2-16 4764022210) BUN (test code = 63 mg/dL 7-23 H 9017528607) GLUCOSE (test code = 142 mg/dL 70-110 H 7245344187) CREATININE (test code = 5.82 mg/dL 0.6-1.25 H 4405541236) TOTAL BILI (test code = 0.4 mg/dL 0.1-1.1 3262416742) CALCIUM (test code = 9.8 mg/dL 8.6-10.6 2514335107) T PROTEIN (test code = 7.5 g/dL 6.3-8.2 2045969661) ALBUMIN (test code = 4.2 g/dL 3.5-5 5805340308) ALK PHOS (test code = 100 U/L 34-122 8671588145) ALTv (test code = 14 U/L 5-50 1742-6) AST(SGOT) (test code = 27 U/L 13-40 4057020183) eGFR Calculation mL/min/1.73m2 (Non-) (test code = 3718288868) eGFR Calculation mL/min/1.73m2 () (test code = 8524604242) JACQUELYN (test code = JACQUELYN) Association of [...] tests). Lab Interpretation Abnormal (test code = 32102-3) [facility]2020-09-30 23:16:00 Test Item Value Reference Range Interpretation Comments MAGNESIUM (test code = 3916900715) 2.5 mg/dL 1.7-2.4 H Lab Interpretation (test code = Abnormal 36442-3) [facility] WITH LEAG1438-63-71 22:53:00 Test Item Value Reference Range Interpretation [...] RDW-SD (test code = 46.1 fL 38.5-51.6 37245-8) RDW-CV (test code = 13.9 % 12.1-15.4 788-0) PLT (test code = See_Comment [Automated 777-3) message] The sy stem which generated this result transmitted reference range : 150 - 328 10*3/ ?L. The reference r za was not used to interpret this result as normal/abnormal . MPV (test code = 8.7 fL 9.8-13 L 57626-4) NRBC/100 WBC (test See_Comment [Automat ed code = 3342978023) message] The system which generated this result transmitted reference range : 0.0 - 10.0 /100 WBCs. The refer ence range was not u sed to interpret th is result as normal/abnormal . NRBC x10^3 (test code <0.01 See_Comment [Auto mated = 5427416236) message] The s ystem which generated this result transmitted reference range : 10*3/?L. The reference range was not used to interpret this result as normal/abnormal . GRAN MAT (NEUT) % 79.0 % (test code = 770-8) IMM GRAN % (test code 0.50 % = 5594174739) LYMPH % (test code = 7.3 % 736-9) MONO % (test code = 9.1 % 5905-5) EOS % (test code = 3.8 % 713-8) BASO % (test code = 0.3 % 706-2) GRAN MAT x10^3(ANC) 6.93 10*3/uL 1.99-6.95 (test code = 0163254189) IMM GRAN x10^3 (test 0.04 10*3/uL 0-0.06 code = 1869712342) LYMPH x10^3 (test code 0.64 10*3/uL 1.09-3.23 L = 731-0) MONO x10^3 (test code 0.80 10*3/uL 0.36-1.02 = 742-7) EOS x10^3 (test code = 0.33 10*3/uL 0.06-0.53 711-2) BASO x10^3 (test code 0.03 10*3/uL 0.01-0.09 = 704-7) Lab Interpretation Abnormal (test code = 47314-5) [facility] WITH OSLH0647-16-61 22:53:00 Test Item Value Reference Range Interpretation [...] RDW-SD (test code = 46.1 fL 38.5-51.6 51649-3) RDW-CV (test code = 13.9 % 12.1-15.4 788-0) PLT (test code = See_Comment [Automated 777-3) message] The sy stem which generated this result transmitted reference range : 150 - 328 10*3/ ?L. The reference r za was not used to interpret this result as normal/abnormal . MPV (test code = 8.7 fL 9.8-13 L 39847-6) NRBC/100 WBC (test See_Comment [Automat ed code = 9286918431) message] The system which generated this result transmitted reference range : 0.0 - 10.0 /100 WBCs. The refer ence range was not u sed to interpret th is result as normal/abnormal . NRBC x10^3 (test code <0.01 See_Comment [Auto mated = 0398962843) message] The s ystem which generated this result transmitted reference range : 10*3/?L. The reference range was not used to interpret this result as normal/abnormal . GRAN MAT (NEUT) % 79.0 % (test code = 770-8) IMM GRAN % (test code 0.50 % = 7601565700) LYMPH % (test code = 7.3 % 736-9) MONO % (test code = 9.1 % 5905-5) EOS % (test code = 3.8 % 713-8) BASO % (test code = 0.3 % 706-2) GRAN MAT x10^3(ANC) 6.93 10*3/uL 1.99-6.95 (test code = 4937655717) IMM GRAN x10^3 (test 0.04 10*3/uL 0-0.06 code = 2575917025) LYMPH x10^3 (test code 0.64 10*3/uL 1.09-3.23 L = 731-0) MONO x10^3 (test code 0.80 10*3/uL 0.36-1.02 = 742-7) EOS x10^3 (test code = 0.33 10*3/uL 0.06-0.53 711-2) BASO x10^3 (test code 0.03 10*3/uL 0.01-0.09 = 704-7) Lab Interpretation Abnormal (test code = 48705-7) [facility]OWER WITHOUT CONTRAST, RIGHT 2017-01-25 19:47:00FINAL [...] Kumar MDReport Verified Date/Time:01/25/2017 19:47:23 Reading Location: [address] Reading Room RAD, HIP, 2 VIEWS, RYKLH3072-53-93 19:11:00Reason for exam:->FALLReason for exam:->HIP PAINShould this be performed at the bedside?->NoFINAL REPORT CLINICAL HISTORY: Trauma and pain COMPARISON: None. FINDINGS: Frontal view of the pelvis and a lateral view of the right hip are submitted. There is no acute fracture, malalignment or destructive bony lesion. Surgical clips overlie the right lower abdomen. Signed: Jorge Kumar MDReport Verified Date/Time: 01/25/2017 19:11:49 Reading Location: [address] Reading Room chfiylba0887-64-75 16:35:0029[facility] TmikgtsQuylxtxdr1463-34-02 16:35:00 Test Item Value Reference Range Interpretation Comments BUN/CREAT (test code = BUN/CREAT) 12 1 6-25 [facility] FecibbrSnlbexmid4727-61-01 16:35:004.2[facility] 2014-02-18 16:35:008.9[facility] VichjioVtyijkixi4935-12-08 16:35:0036[facility] EioknmuLbhkeievh9767-52-81 16:35:0025[facility] UphgxnjAktqqoxpb9678-25-72 16:35:56622Iowuvvoz XfthyubFijzpfzhf3711-58-11 16:35:001.380[facility] [place] Zzkbqxdyx9269-80-76 16:35:002.00[facility] NgrnuqtKdfyvzehkl3908-39-54 16:35:00 13.9[facility] FmslzzsZxwpnxdhom7058-11-96 16:35:0041.4[facility]ann[facility] 2014-02-18 16:35:71063 K/CMMMemorial JxqeczoSzxrzutc4741-36-40 16:35:00Non ReactiveMemorial QygdpapAlopxuvbp5473-11-49 16:35:15600Efadkscx HermannChemistry 2014-02-18 16:35:58253Lswucols UpbopvxBhxsnwtnn6603-78-73 16:35:0032[facility] AvdvxhiYlztdpyvu9881-03-93 16:35:51257Yvmdacwg ZowhlgrMroxwbeju4461-43-23 16:35:81287 MEQ/LMemorial MtxgkduUbdrfnrbc9755-96-59 16:35:004.3 MEQ/LMemorial CxijqhoLyikfnhlr9468-36-61 16:35:002.5[facility] QpvcqiiArqoftodn6067-43-08 16:35:0029[facility] MmylhglGbppqkbkv5018-41-31 16:35:00 Test Item Value Reference Range Interpretation Comments BUN/CREAT (test code = BUN/CREAT) 12 1 6-25 [facility] TbhesvxManfvxleh0758-49-62 16:35:004.2[facility] 2014-02-18 16:35:008.9[facility] EuuskhkRyqttlzzy1065-33-46 16:35:0036[facility] WeitdsxXpbnaieph6070-31-47 16:35:0025[facility] CgqzugiHhpzojycp6159-61-74 16:35:98035Tkwncdcu LmtwcakNeyieabqe1279-32-95 16:35:001.380[facility] Hwvgnjpau1594-42-30 16:35:002.00[facility] ArknkgpKqrpqhllqh9325-63-96 16:35:00 13.9[facility] YonnnfjDwrmtzrgob6419-56-15 16:35:0041.4[facility]ann[facility] 2014-02-18 16:35:01522 K/CMMMemorial LehppmkJdatxbts7300-42-43 16:35:00Non ReactiveMemorial DsaixmzCsavxoihx0587-63-70 16:35:03008Lpxaagms [facility]annChem[facility] 2014-02-18 16:35:28872Otuejofu UdoguayTklnixcjq2252-02-00 16:35:0032[facility] WebyisgDchhymzrw5562-64-10 16:35:63799Oavdcpwq AqlmjroBjxbdzfzl4778-05-44 16:35:88267 MEQ/LMemorial CvzveuwKryeaekmd6560-13-53 16:35:004.3 MEQ/LMemorial YbmshnbNsvpbtmrd8576-80-61 16:35:002.5[facility] CnlgtqeFpvnmdthu0553-99-03 20:45:41068Hhsmrper JyyapzdMbckajuwv6203-61-03 20:45:89980Cgdctpgs [place] Hjidrbmzi0106-67-04 20:45:0023[facility] SjioocfAcsmvkqyr6296-73-60 20:45:53713 [facility] WhpoxjyAxemukjqu3034-23-19 20:45:21371Coclihik [facility]Chem[facility] 2013-01-23 20:45:0023[facility] IqwyknpFaasagsxl7370-33-32 20:45:00See Note mg/dL [facility] FsgrvwbRrjthaulb0518-64-99 20:45:03256 MEQ/LMemorial HermannChemistry 2013-01-23 20:45:004.5 MEQ/LMemorial BkhybhhBxagluzql9743-83-33 20:45:001.8 [facility] NrvplqmUrgjopyql0393-98-81 20:45:0030[facility] 2013-01-23 20:45:00 Test Item Value Reference Range Interpretation Comments BUN/CREAT (test code = BUN/CREAT) 17 1 6-25 [facility] JmchsbwYgbykgxka9727-44-34 20:45:004.2[facility] 2013-01-23 20:45:009.3[facility] CtlrfzjVturuscmj7656-63-61 20:45:0031[facility] HzbdovtFugbjedtm1548-67-33 20:45:0020[facility] VgdampcIxbwumzve0324-57-41 20:45:04839Eanwlkqu OtijqskQnbsvlogw3840-25-35 20:45:001.390[facility] Gpxavvjkq7682-01-24 20:45:001.33[facility] NhtbdycBsjntgdvc4107-88-19 20:45:52402 [facility] FjqtcbiRtxgkgnys9747-42-77 20:45:14711Xoqpyggu [facility]Chem[facility] 2013-01-23 20:45:0023[facility] AgmsrhrZdmmnzcgd8199-41-71 20:45:47536Vmqmztuk OwtogcjYjbailtdx2734-15-24 20:45:50599Ntyedgub PyufjkaOmgsvwrmy0020-16-73 20:45:0023[facility] VskanlcIkracuoxo8600-39-00 20:45:00See Note mg/dLMemorial OlujlvbSuaaiwyac3095-32-79 20:45:86094 MEQ/LMemorial UzoozclPuhmlmmvy3210-52-96 20:45:004.5 MEQ/LMemorial BquzphwFyooxrsjy6841-64-54 20:45:001.8[facility] [place] Fkxlvgmze8568-86-04 20:45:0030[facility] QrgivtaLnqygqduw7678-34-21 20:45:00 Test Item Value Reference Range Interpretation Comments BUN/CREAT (test code = BUN/CREAT) 17 1 6-25 [facility] ArktwtsKnmtyfgqo5615-88-58 20:45:004.2[facility] 2013-01-23 20:45:009.3[facility] CnhwfvsAhknrckje6717-23-53 20:45:0031[facility] GztoavpIcjqrkter7204-11-29 20:45:0020[facility] MufokmzFfdrqqznb2394-96-83 20:45:34897Jlutkjjs EjgewrtOydgwhgrg8588-08-85 20:45:001.390[facility] Jimmy Nhpdbmxmh7284-20-95 20:45:001.33[facility] NyvkqicEtxooxgnj9449-08-44 15:12:571.57 [facility] PdvpltmEpghmplvp8640-44-25 15:12:571.57[facility] 2012-04-02 15:12:571.57[facility] HuhjtluVgexesqch5319-06-17 15:12:571.57[facility] [place]"
[2021-07-28 18:08] LABS: Absolute Lymphocytes (CBC) 0.5 K/uL (0.7-4.9); Hematocrit 28.4 % (39.6-49.0); Lymphocytes % 6.4 % (15.3-44.8); MPV 6.8 fL (7.6-11.3); RBC Red Blood Cell Count 3.13 M/uL (4.33-5.43)
[2021-07-28 18:21] LABS: Potassium 3.8 mmol/L (3.5-5.1); Troponin High Sensitivity 19.5 pg/mL (<58.9)
--- NOTE | 2021-07-28 18:32 | RAD REPORT ---
EXAM DESCRIPTION: RAD - Chest Single View - 07/28/2021 6:12 pm CLINICAL HISTORY: low heart rate COMPARISON: <Comparisons> FINDINGS: Lines: None. Lungs: Increased prominence of the pulmonary interstitium. Pleural: Small right-sided pleural effusion. Cardiac: Cardiomegaly. Bones: No acute fractures. Other: IMPRESSION: Increased prominence of the pulmonary interstitium favored to represent edema with small right effusion.
--- NOTE | 2021-07-28 18:49 | EDPHYS ---
Physician Documentation [facility] Name: Amando Grossman Age: 75 yrs Sex: Male : 1945 Arrival Date: 07/28/2021 Time: 17:12 Bed 8 Private MD: ED Physician Paolo Barriga HPI: 07/28 17:49 This 75 yrs old Male presents to ER via EMS with complaints of sent from dialysis for ma2 evaluation. 17:49 75-year-old male history of hypertension, ESRD on dialysis, he was at the dialysis ma2 center when he had an episode of bradycardia, blood pressure remained normal, he was sent here for evaluation,. When interviewed, patient does not have any symptoms and he states he has nothing bothering him. Specifically no chest pain no palpitation no lightheadedness or dizziness.. Historical: - Allergies: 17:26 "statins"; jd3 17:26 Iodine; topical is ok; jd3 17:26 PENICILLINS; jd3 17:26 Shellfish Containing Products; jd3 - Home Meds: 17:26 aspirin 81 mg Oral chew 1 tab once daily [Active]; Celebrex 100 mg Oral cap 1 cap once jd3 daily [Active]; clopidogrel 75 mg Oral tab 1 tab once daily [Active]; fluticasone inhalation [Active]; Dialyvite Oral [Active]; gabapentin Oral [Active]; losartan Oral [Active]; metoprolol tartrate 50 mg Oral tab 1 tab 2 times per day [Active]; sertraline Oral [Active]; pantoprazole Oral [Active]; Furosemide Oral [Active]; Sular 34 mg Oral Tb24 1 tab once daily [Active]; tamsulosin 0.4 mg Oral cp24 1 cap once daily [Active]; WelChol 3.75 gram Oral pwpk 1 packet twice a day [Active]; pantoprazole 40 mg Oral TbEC 1 tab once daily [Active]; zolpidem 10 mg Oral tab 1 tab nightly [Active]; - PMHx: 17:26 Dialysis <M and F; mascular degeneration; Hypertension; Urinary Urgency; GERD; jd3 Depression; High Cholesterol; cholesterol; Anxiety; - PSHx: 17:26 CABG; Carpal tunnel surgery, bilateral; Replacement of total knee joint; Bilateral; jd3 Cardaic stent; right AKA; colon resection; Right Nephrectomy; - Immunization history:: Adult Immunizations up to date, Client reports receiving the 2nd dose of the Covid vaccine. - Social history:: Smoking status: Patient denies any tobacco usage or history of. - Family history:: not pertinent. ROS: 17:49 Constitutional: Negative for fever, chills, and weight loss. ma2 17:49 All other systems are negative. Exam: 17:49 Constitutional: This is a well developed, well nourished patient who is awake, alert, ma2 and in no acute distress. Head/Face: Normocephalic, atraumatic. Eyes: Pupils equal round and reactive to light, extra-ocular motions intact. Lids and lashes normal. Conjunctiva and sclera are non-icteric and not injected. Cornea within normal limits. Periorbital areas with no swelling, redness, or edema. ENT: Nares patent. No nasal discharge, no septal abnormalities noted. Tympanic membranes are normal and external auditory canals are clear. Oropharynx with no redness, swelling, or masses, exudates, or evidence of obstruction, uvula midline. Mucous membranes moist. Neck: Trachea midline, no thyromegaly or masses palpated, and no cervical lymphadenopathy. Supple, full range of motion without nuchal rigidity, or vertebral point tenderness. No Meningismus. Chest/axilla: Normal chest wall appearance and motion. Nontender with no deformity. No lesions are appreciated. Cardiovascular: Regular rate and rhythm with a normal S1 and S2. No gallops, murmurs, or rubs. Normal PMI, no JVD. No pulse deficits. Respiratory: Lungs have equal breath sounds bilaterally, clear to auscultation and percussion. No rales, rhonchi or wheezes noted. No increased work of breathing, no retractions or nasal flaring. Abdomen/GI: Soft, non-tender, with normal bowel sounds. No distension or tympany. No guarding or rebound. No evidence of tenderness throughout. Skin: Warm, dry with normal turgor. Normal color with no rashes, no lesions, and no evidence of cellulitis. MS/ Extremity: Pulses equal, no cyanosis. Neurovascular intact. Full, normal range of motion. Neuro: Awake and alert, GCS 15, oriented to person, place, time, and situation. Cranial nerves II-XII grossly intact. Motor strength 5/5 in all extremities. Sensory grossly intact. Cerebellar exam normal. Normal gait. Vital Signs: 17:28 BP 170 / 58; Pulse 55; Resp 18 S; Temp 98.0(TE); Pulse Ox 100% on R/A; Weight 81.65 kg jd3 (R); Height 5 ft. 8 in. (172.72 cm) (R); Pain 0/10; 19:00 BP 165 / 56; Pulse 59; Resp 18 S; Pulse Ox 98% on R/A; jd3 17:28 Body Mass Index 27.37 (81.65 kg, 172.72 cm) jd3 MDM: 17:47 Patient medically screened. ma2 18:47 Differential Diagnosis Patient has no symptoms, pulse remained normal, EKG is done ma2 shows sinus bradycardia with first-degree AV block rate is 56, when I evaluate the patient's rate was in the 80s with sinus rhythm, blood pressure remained normal, patient states he would like to be discharged and he will follow-up with vendor analyst in 1 to 2 days, give return precaution, instructed to return to ER for any worsening of symptoms, chest x-ray with small left pleural effusion. Data reviewed: vital signs, nurses notes. Counseling: I had a detailed discussion with the patient and/or guardian regarding: the historical points, exam findings, and any diagnostic results supporting the discharge/admit diagnosis, the presence of at least one elevated blood pressure reading (>120/80) during this emergency department visit, the need for outpatient follow up. Response to treatment: There is no appreciated change of the patient's symptoms at this time. 07/28 17:38 Order name: Basic Metabolic Panel; Complete Time: 18:25 [facility] 07/28 17:38 Order name: CBC with Diff; Complete Time: 18:15 [facility] 07/28 17:38 Order name: Troponin HS; Complete Time: 18:25 [facility] 07/28 17:38 Order name: XRAY Chest (1 view); Complete Time: 18:47 [facility] 07/28 17:38 Order name: EKG; Complete Time: 17:39 [facility] 07/28 17:38 Order name: Cardiac monitoring; Complete Time: 17:47 [facility] 07/28 17:38 Order name: EKG - Nurse/Tech; Complete Time: 17:47 [facility] 07/28 17:38 Order name: IV Saline Lock; Complete Time: 17:48 jd3 07/28 17:38 Order name: Labs collected and sent; Complete Time: 17:57 jd3 07/28 17:38 Order name: O2 Per Protocol; Complete Time: 17:48 jd3 07/28 17:38 Order name: O2 Sat Monitoring; Complete Time: 17:48 jd3 Administered Medications: No medications were administered Disposition Summary: 07/28/21 18:48 Discharge Ordered Location: Home ma2 Condition: Stable ma2 Diagnosis - Bradycardia, unspecified ma2 Followup: ma2 - With: Arnaldo Diaz MD - When: Tomorrow - Reason: If symptoms return, Continuance of care Discharge Instructions: - Discharge Summary Sheet ma2 - Bradycardia, Adult ma2 Forms: - Medication Reconciliation Form ma2 - Thank You Letter ma2 - Antibiotic Education ma2 - Prescription Opioid Use ma2 Signatures: Dispatcher [employer] Bony Shoemaker RN RN Paolo Foy MD MD ma2
--- NOTE | 2021-07-28 18:49 | ER ---
Nurse's Notes [facility] Name: Amando Grossman Age: 75 yrs Sex: Male : 1945 Arrival Date: 07/28/2021 Time: 17:12 Bed 8 Private MD: Diagnosis: Bradycardia, unspecified Presentation: 07/28 17:21 Chief complaint: EMS states: "Pt is from dialysis [facility]. the facility called to report jd3 that the pt was having a low heart rate in the 30's-40's. on our arrival we placed him on O2 at 2 L for low 90's oxygen level and his heart rate was still in the 30's-40's. we started a 20 G IV to the right wrist and started some fluids. the dialysis center reported that he had about 1 hour left and he had about 1 L removed. pt denies complaints at this time.". Coronavirus screen: At this time, the client does not indicate any symptoms associated with coronavirus-19. Ebola Screen: No symptoms or risks identified at this time. Initial Sepsis Screen: Does the patient meet any 2 criteria? No. Patient's initial sepsis screen is negative. Does the patient have a suspected source of infection? No. Patient's initial sepsis screen is negative. Risk Assessment: Do you want to hurt yourself or someone else? Patient reports no desire to harm self or others. Onset of symptoms was July 28, 2021. 17:21 Method Of Arrival: EMS: [facility] jd3 17:21 Acuity: KELLY 2 jd3 Historical: - Allergies: 17:26 "statins"; jd3 17:26 Iodine; topical is ok; jd3 17:26 PENICILLINS; jd3 17:26 Shellfish Containing Products; jd3 - Home Meds: 17:26 aspirin 81 mg Oral chew 1 tab once daily [Active]; Celebrex 100 mg Oral cap 1 cap once jd3 daily [Active]; clopidogrel 75 mg Oral tab 1 tab once daily [Active]; fluticasone inhalation [Active]; Dialyvite Oral [Active]; gabapentin Oral [Active]; losartan Oral [Active]; metoprolol tartrate 50 mg Oral tab 1 tab 2 times per day [Active]; sertraline Oral [Active]; pantoprazole Oral [Active]; Furosemide Oral [Active]; Sular 34 mg Oral Tb24 1 tab once daily [Active]; tamsulosin 0.4 mg Oral cp24 1 cap once daily [Active]; WelChol 3.75 gram Oral pwpk 1 packet twice a day [Active]; pantoprazole 40 mg Oral TbEC 1 tab once daily [Active]; zolpidem 10 mg Oral tab 1 tab nightly [Active]; - PMHx: 17:26 Dialysis <M and F; mascular degeneration; Hypertension; Urinary Urgency; GERD; jd3 Depression; High Cholesterol; cholesterol; Anxiety; - PSHx: 17:26 CABG; Carpal tunnel surgery, bilateral; Replacement of total knee joint; Bilateral; jd3 Cardaic stent; right AKA; colon resection; Right Nephrectomy; - Immunization history:: Adult Immunizations up to date, Client reports receiving the 2nd dose of the Covid vaccine. - Social history:: Smoking status: Patient denies any tobacco usage or history of. - Family history:: not pertinent. Screenin:35 Abuse screen: Denies threats or abuse. Nutritional screening: No deficits noted. jd3 Tuberculosis screening: No symptoms or risk factors identified. Fall Risk IV access (20 points). Mental Status- Oriented to own ability (0 pts). Total Kamara Fall Scale indicates No Risk (0-24 pts). Assessment: 17:32 General: Appears in no apparent distress. comfortable, Behavior is calm, cooperative, jd3 appropriate for age, Reports pt reports anxiety about his low heart rate. Pain: Denies pain. Neuro: [place]uj[place] Agitation-Sedation Scale (RASS): 0 - Alert and Calm Level of Consciousness is awake, alert, obeys commands, Oriented to person, place, time, situation. Cardiovascular: Denies chest pain, Capillary refill < 3 seconds Patient's skin is warm and dry. Rhythm is sinus bradycardia. Respiratory: Reports shortness of breath on exertion Airway is patent Respiratory effort is even, unlabored, Respiratory pattern is regular, symmetrical, Denies cough. GI: No signs and/or symptoms were reported involving the gastrointestinal system. : No signs and/or symptoms were reported regarding the genitourinary system. EENT: No signs and/or symptoms were reported regarding the EENT system. Derm: No signs and/or symptoms reported regarding the dermatologic system. Musculoskeletal: No signs and/or symptoms reported regarding the musculoskeletal system. Amputation of right AKA. 18:30 Reassessment: Patient appears in no apparent distress at this time. Patient and/or ld1 family updated on plan of care and expected duration. Pain level reassessed. Patient is alert, oriented x 3, equal unlabored respirations, skin warm/dry/pink. awaiting disposition Patient denies pain at this time. Vital Signs: 17:28 BP 170 / 58; Pulse 55; Resp 18 S; Temp 98.0(TE); Pulse Ox 100% on R/A; Weight 81.65 kg jd3 (R); Height 5 ft. 8 in. (172.72 cm) (R); Pain 0/10; 19:00 BP 165 / 56; Pulse 59; Resp 18 S; Pulse Ox 98% on R/A; jd3 17:28 Body Mass Index 27.37 (81.65 kg, 172.72 cm) jd3 ED Course: 17:12 Patient arrived in ED. eb 17:20 Bony Valiente RN is Primary Nurse. jd3 17:24 Paolo Barriga MD is Attending Physician. ma2 17:26 Triage completed. jd3 17:29 Arm band placed on. jd3 17:29 Maintain EMS IV. Dressing intact. Site clean \\T\\ dry. Gauge \\T\\ site: 20 G right wrist. guanako 3 17:35 Patient has correct armband on for positive identification. Bed in low position. Call jd3 light in reach. Side rails up X2. Client placed on continuous cardiac and pulse oximetry monitoring. NIBP monitoring applied. monitor technician on. Pulse ox on. NIBP on. 18:14 XRAY Chest (1 view) In Process Unspecified. EDMS 18:48 Arnaldo Diaz MD is Referral Physician. ma2 19:01 No provider procedures requiring assistance completed. ld1 19:11 Primary Nurse role handed off by Bony Valiente, ADRIEN mw2 19:12 IV discontinued, intact, bleeding controlled, No redness/swelling at site. Pressure jd3 dressing applied. Administered Medications: No medications were administered Medication: 17:35 VIS not applicable for this client. jd3 Outcome: 18:48 Discharge ordered by . ma2 19:12 Discharged to home via wheelchair, with friend. jd3 19:12 Condition: stable 19:12 Discharge instructions given to patient, Instructed on discharge instructions, follow up and referral plans. Demonstrated understanding of instructions, follow-up care. 19:12 Patient left the ED. jd3 Signatures: Dispatcher [employer] Bony Shoemaker, RN RN jd3 Paolo Barriga MD MD ma2 Jean Jacobs 2 Jenny Matthews Lauren, RN RN ld1
[2021-07-28 19:21] VITALS: TEMP 98
[2021-07-28 19:23] VITALS: BP 165/56; O2SAT 98
--- NOTE | 2021-07-31 11:56 | EKG ---
Test Date: 2021-07-28 Test Time: 17:41:33 [employer]: MENA MEASUREMENT RESULTS: Intervals: Rate: 56 PA: 282 QRSD: 146 QT: 530 QTc: 511 Josephine: P: 61 PA: 282 QRS: 24 T: 71 INTERPRETIVE STATEMENTS: Sinus bradycardia with 1st degree AV block with premature supraventricular complexes Left bundle branch block Abnormal ECG Compared to ECG 05/16/2021 11:49:47 Atrial premature complex(es) now present Left bundle-branch block now present Sinus rhythm no longer present Right bundle-branch block no longer present Electronically Signed On 07-31-21 11:50:44 CDT by Arnaldo Diaz
== END 2021-07-28 19:12 | disposition home or self-care (01) ==
LOC: ER 17:05
DX: R00.1 Bradycardia, unspecified (principal); I12.0 Hypertensive chronic kidney disease with stage 5 chronic kidney disease or end stage renal disease; N18.6 End stage renal disease; E78.00 Pure hypercholesterolemia, unspecified; F32.A Depression, unspecified; Z99.2 Dependence on renal dialysis; Z95.1 Presence of aortocoronary bypass graft; Z79.82 Long term (current) use of aspirin; Z88.0 Allergy status to penicillin; Z91.013 Allergy to seafood; Z91.048 Other nonmedicinal substance allergy status
CPT/HCPCS: 36415; 71045; 80048; 84484; 85025; 93005; 99284

== ENCOUNTER 2021-12-09 10:57 | Emergency (ER) | payer OTHER, BC ==
--- OUTSIDE RECORDS SUMMARY | 2021-12-09 11:08 | XMS REPORT | Continuity of Care Document ---
:1945 Author Organization [facility] t Address [address] [place] [address] Care Team Providers Name Role Phone Robert Pierce MD Primary Care Physician [phone] Attending Clinician Unavailable SHARON DIAZ IGNAZIO Attending Clinician Unavailable Provider, Undefined Attending Clinician Unavailable Sekou Curtis Attending Clinician Unavailable Fausto Espino Attending Clinician Unavailable Chaya Villafuerte Kelcey Attending Clinician Unavailable RADIOLOGY Attending Clinician Unavailable Radiology Attending Clinician Unavailable Doctor Unassigned, [facility] Attending Clinician Unavailable Maddy Guo Attending Clinician SVETLANA KENNY Attending Clinician Unavailable Javad MOSQUERA, Arturo Gupta Attending Clinician [phone] Svetlana Cano MD Attending Clinician Daniel Lee MD Attending Clinician LOVE HILARIO Attending Clinician Unavailable Nicky Sandoval MA Attending Clinician Unavailable SANDRA GUO Attending Clinician Unavailable Usha MOSQUERA, Obi Almanza Attending Clinician Emilee Wooten MA Attending Clinician Unavailable Nolberto MOSQUERA, Suzanne Egan Attending Clinician [phone] Clint King DO Attending Clinician [phone] Dickson MOSQUERA, Kristopher Attending Clinician Liu Mccloud Attending Clinician Clint Graham MD Attending Clinician Oswald York MD Attending Clinician Wanda Pedraza Attending Clinician Wanda PICKENS Attending Clinician Unavailable Melany MOSQUERA, Liss Baxter Attending Clinician [id number] Admitting Clinician Unavailable SHRAON DIAZ IGNAZIO Admitting Clinician Unavailable CHAYA VILLAFUERTE Admitting Clinician Unavailable Sekou Curtis Admitting Clinician Unavailable Fausto Espino Admitting Clinician Unavailable Chaya Villafuerte Kelcey Admitting Clinician Unavailable ADRIANA ARELLANO Admitting Clinician Unavailable SVETLANA CANO Admitting Clinician Unavailable JESSICA BELLAMY Admitting Clinician Unavailable CLINT KING Admitting Clinician Unavailable Payers Payer Name Policy Type Policy Number Effective Date Expiration Date S malachi [facility] [id number] BCTX BCTI [id number] MEDICARE PART A \\T\\ [id number] 2010 B 00:00:00 BCBS TRADITIONAL [id number] 2010 00:00:00 MEDICARE PART B - [id number] 2010 2014 MEDICARE 00:00:00 00:00:00 PPO/EPO - BCBS [id number] 2016 00:00:00 Problems Condition Condition Condition Status Onset Resolution Last Treating Co mments Source Name Details Category Date Date Treatment Clinician Date Hyperkalem Hyperkalem Disease Active M ethodi ia ia 06-13 00:00: Hospita 00 l Acute GI Acute GI Disease Active [facility] di bleeding bleeding 06-12 00:00: Hospita 00 l End stage End stage Disease Active [facility] disease disease 00:00: t & Plan: of (HCCode) (HCCode) 00 Formattin Med icin g of this e note might be different from the original. Stable on HD. 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 Stable symptoms on current regimen which are separate from his recent chest pain. 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 [facility] sclerosis sclerosis 00:00: t & Plan: [...] Added automatic ally from request for surgery [id number] End stage End stage Disease Active [facility] renal renal 03-05 st disease on disease on 00:00: Ho spita dialysis dialysis 00 l Impaired Impaired Disease Active 2018-02 [facility] r fasting fasting 02-27 [place] glucose glucose 00:00: of Medicin e Urinary Urinary Disease Active 2018-02 [facility] frequency frequency 1-17 Natan ege 00:00: of 00 Medicin e Chronic Chronic Disease Active 2018-02 [facility] disease disease 0-09 st anemia anemia 00:00: Hospita 00 l Chronic Chronic Disease Active 2018-02 [facility] kidney kidney 0 disease, disease, 00:00: Hospit a stage IV stage IV 00 l (severe) (severe) Chronic Chronic Disease Active 2018-02 [facility] disease disease 0 [facility] anemia anemia 00:00: Hospita 00 l Arthritis Arthritis Disease Active 2017-02 [facility] of knee, of knee, 2 Colleg e left left 00:00: of 00 Medicin e 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 [facility] knee knee 2 College replacemen replacemen 00:00: of t, t, 00 Medicin bilateral bilateral e Anemia, Anemia, Disease Active 2017-02 [facility] unspecifie unspecifie 02-23 st d d 00:00: Hospita 00 l Chronic Chronic Disease Active [facility] renal renal 6 [place] disease, disease, 00:00: of stage 4, stage 4, 00 Medici n severely severely e decreased decreased glomerular glomerular filtration filtration rate (GFR) rate (GFR) between between 15-29 15-29 mL/min/1.7 mL/min/1.7 3 square 3 square meter meter (HCCode) (HCCode) Atheroscle Atheroscle Disease Active Overview : [facility] rosis of rosis of 09-23 Formattin Col lege tetlin tetlin 00:00: g of this of coronary coronary 00 note Medici n artery of artery of might be e tetlin tetlin different heart heart from the without without original. angina angina Long pectoris pectoris standing disease, stable with current RxLast Assessmen t & Plan: Formattin g of this note might be different from the original. Asymtomat ic on the current level of activity and medical regimen.L exiscan ordered. Essential Essential Disease Active Overview: [facility] hypertensi hypertensi 09-23 [facility] on on 00:00: g of this of note Medicin might be e different from the original. Stable and sometimes BP drops too muchLast Assessmen t & Plan: Formattin g of this note might be different from the original. Controlle d on the current regimen. Heart Heart Disease Active Overview: [facility] murmur murmur 09-23 [facility] 00:00: systolic of 00 murmur Medicin Grade 2/6 e over LSB , not radiating in any direction but audible over most of [place] l areaLast Assessmen t & Plan: Continue current Rx and control all risk factors including weight S/P S/P Disease Active Overview: [facility] angioplast angioplast - In 2009 C ollege y with y with 00:00: he had A of stent stent 00 stent Medicin deployed e in proximal RCA andCx had only Angioplas ty with good resultsLa Assessmen t & Plan: Continue current Rx and control all risk factors including weight H/O H/O Disease Active Overview: [facility] unilateral unilateral 09-23 He had Co llege nephrectom nephrectom 00:00: nephrecto of y y 00 my long Medicin time ago e and the other kidney is weakLast Assessmen t & Plan: Monitor closely Rx and control all risk factors including weight Dyslipidem Dyslipidem Disease Active Overview : [facility] ia ia 09-23 [facility] 00:00: g of this note Medicin might be e different from the original. Last year they were not perfectCu rrent [facility] Assessmen t & Plan: Formattin g of this note might be different from the original. Controlle d on the current regimen. Arthritis Arthritis Disease Active Overview: [facility] of knee, of knee, 09-23 He has Colleg e right right 00:00: severe of 00 arthritis Medicin with e joint replaceme nt and now has infection for which he is using fdc infection Antibioti c [facility] t & Plan: Continue current Rx and control all risk factors including weight Infection Infection Disease Active [facility] of of 07-11 st prosthetic prosthetic 00:00: Ho spita right knee right knee 00 l joint joint Fever Fever Disease [facility] Mechanical Mechanical Disease Active C HI St loosening loosening 6-16 [facility] of of 00:00: Medical prosthetic prosthetic 00 Ce nter joint joint ROUTINE ROUTINE Condition Active 2014-02-18 [facility] GENERAL GENERAL 1-08 10:35:00 l MEDICAL MEDICAL 00:00: Jimmy EXAMINATIO EXAMINATIO 00 N AT A N AT A [facility] FACILITY Active 02/18/2014 Condition 02/18/2014 Medical Group HYPERTROPH HYPERTROP Condition Active 2012-022014-02-18 [facility] Y PROSTATE HY 2-13 10:35:00 l W/UR OBST PROSTATE 00:00: Mary nn & OTH LUTS W/UR OBST 00 & OTH LUTS Active 01/23/2013 Condition 02/18/2014 Medical Group DYSLIPIDEM DYSLIPIDE Condition Active 2014-02-18 [facility] IA RUMA Active 10:35:00 l Condition Jimmy 02/18/2014 Medical Group GERD GERD Condition Active 2014-02-18 Mem oria Active 10:35:00 l Condition [place] 02/18/2014 Medical Group ASCVD ASCVD Condition Active 2014-02-18 [facility] Active 10:35:00 l Condition Jimmy 02/18/2014 Medical Group CAD CAD Condition Active 2014-02-18 [facility] Active 10:35:00 l Condition Jimmy 02/18/2014 Medical Group CHRONIC CHRONIC Condition Active 2014-02-18 [facility] KIDNEY KIDNEY 10:35:00 l DISEASE DISEASE [place] STAGE III STAGE III (MODERATE) (MODERATE) Active Condition 02/18/2014 Medical Group HYPERTENSI HYPERTENS Condition Active 2014-02-18 [facility] ON ION Active 10:35:00 l Condition [place] 02/18/2014 Medical Group Allergies, Adverse Reactions, Alerts Allergy Allergy Status Severity Reaction(s) Onset Inactive Treating Comm ents Source Name Type Date Date Clinician Iodine FA Active HI [facility] and 05-13 Clear Iodide 00:00: Smith Containi 00 [facility] shellfis FA Active SV [facility] h - Clear derived 00:00: Smith 00 [facility] PINICILL DA Active HI ITCHING [facility] IN 05-13 Clear 00:00: Smith 00 [facility] No Known DA Active U [facility] Allergie 05-13 [place] s 00:00: d [facility] No Known DA Active U [facility] Allergie 05-13 [place] 00:00: d 00 [facility] Iodine FA Active HI DIARRHEA [facility] and 05-13 [place] Iodide 00:00: d Containi 00 [facility] Produc shellfis FA Active SV SWELLING [facility] h 05-13 [place] derived 00:00: d 00 [facility] Iodine Propensi Active Rash 2020-0 Univers ty to 9-30 ity of adverse 00:00: [place] reaction 00 [facility] [place] Penicill Propensi Active Anaphylaxis 2020-0 U nivers ins ty to 9-30 ity of adverse 00:00: [place] reaction 00 [facility] s [place] IODINE DRUG Active Rash 2020-0 Univers INGREDI 9-30 ity of 00:00: [place] 00 Medical [place] PENICILL Drug Active Anaphylaxis 2020-0 Uni vers INS Class 9-30 ity of 00:00: [place] 00 Medical [place] SHELLFIS DRUG Active Diarrhea 2020-0 Univer s H INGREDI 9-30 ity of DERIVED 00:00: [place] 00 Medical [place] Shellfis Propensi Active Nausea 2020-0 Univer s h ty to and/or 9-30 ity of Derived adverse Vomiting 00:00: [place] reaction 00 Medical s Branch Penicill Propensi Active Anaphylaxis 2020-0 U nivers ins ty to 9-30 ity of adverse 00:00: [place] reaction 00 Medical s Branch Penicill Propensi Active 2017- [facility] ins ty to 2-10 College adverse 00:00: of reaction 00 Medicin s to e drug Eicosape Propensi Active 2017- [facility] Acid adverse 00:00: Medical reaction 00 Center s Fish-Polo Propensi Active Moderate 2017- [facility] or ived ty to 8-13 College Products adverse 00:00: of reaction 00 Medicin s to e drug Iodine Propensi Active Moderate 2017-0 [facility] ty to 8-13 College adverse 00:00: of reaction 00 Medicin s to e drug Shellfis Propensi Active Nausea And 2015- Me thodi h ty to Vomiting 0-21 [...] [facility] t ins ty to Anaphylaxis 07-09 [facility] adverse 00:00: Medical reaction 00 Center s Shellfis Propensi Active Diarrhea, [facility] ty to Nausea And 07-09 [facility] Containi adverse Vomiting 00:00: Medic al ng reaction 00 Center Products s PCN PCN Active Herberoria madhu Marquez IODINE IODINE Active Herberoria madhu Marquez Family History Family Member Diagnosis Comments Start Date Stop Date Source Natural father Heart disease [facility] Natural mother COPD [facility] Social History Social Habit Start Date Stop Date Quantity Comments Source Exposure to Unable to assess Univers ity of SARS-CoV-2 [place] [facility] (event) Branch Alcohol intake 2021-06-13 2021-06-13 Current [facility] 00:00:00 00:00:00 non-drinker of alcohol (finding) Tobacco use and 2014-07-09 2014-07-[address] Marli kes exposure 00:00:00 00:00:00 Medical Center Sex Ass[birth year] [facility] 00:00:00 00:00:00 Smoking Status Start Date Stop Date Source Tobacco smoking consumption [facility] [place] [facility] unknown Branch Never smoked tobacco [facility] Medications Ordered Filled Start Stop Current Ordering Indication Dosage Frequency Signature Comments Components Source Medication Medication Date Date Medication? Clinician (SIG) Name Name metoprolol 2021- No 12.5mg QD Take 12.5 [facility] tartrate 6-29 06-[address] (LOPRESSOR) 13:17: 00:00 mouth Hosp omega 25 mg 12 :00 every l tablet evening. gabapentin Yes 300mg QD Take 300 [facility] (NEURONTIN) 5-[address] 300 mg 15:42: mouth Hospita capsule 01 nightly. l traZODone Yes 150mg QD Take 150 [facility] (DESYREL) 5-[address] 150 MG 15:42: mouth Hospita tablet 01 nightly. l zolpidem Yes 10mg QD Take 10 mg [facility] (AMBIEN) 10 5-[address] mg tablet 15:42: nightly. Hosp omega 01 NOTE: l Patient must have 10mg dose. Please order 10mg. aspirin 2021- No 81mg QD Take 81 mg [facility] (ECOTRIN) 5-06 05-[address] 81 MG 15:42: 00:00 daily. Hospita enteric 01 :00 l coated tablet losartan 2021- No 50mg Q.5D Take 50 mg [facility] (COZAAR) 50 5-06 05-05 by mouth 2 s t MG tablet 15:42: 00:00 (two) Hospit a 01 :00 times a l day. colesevelam 2021- No 2{packa Q24H Take 2 [facility] 3.75 gram 5-05 05-05 ge} Packages st powder in 15:42: 00:00 by mouth Hos imelda packet 52 :00 daily as l needed. Large fatty meal diphenhydrA 2021- No 25mg QD Take 25 mg [facility] MINE 5-05 05-[address] (BENADRYL) 15:42: 00:00 nightly as Hospita 25 mg 52 :00 needed for l tablet sleep. tamsulosin Yes .4mg QD Take 0.4 [facility] (FLOMAX) 5-[address] 0.4 mg 15:42: mouth Hospita capsule 49 every l morning. clopidogreL Yes 75mg QD Take 75 mg [facility] (PLAVIX) 75 5-[address] mg tablet 15:42: every Hospita 49 morning. l vit A/vit Yes 1{tbl} Q.5D Take 1 Meth herminia C/vit 5-[address] E/zinc/bravo 15:42: mouth 2 Hos imelda er 49 (two) l (PRESERVISI times a ON AREDS day. ORAL) fluticasone Yes 1{spray Q.5D 1 spray [facility] propionate 5-05 } into each st (FLONASE) 15:42: nostril 2 Hos imelda 50 49 (two) l mcg/actuati times a on nasal day as spray needed (allergies ). furosemide Yes 40mg Q24H Take 40 mg M ethodi (LASIX) 40 5-[address] mg tablet 15:42: daily as Hosp omega 49 needed l (fluid overload). folic Yes 1{capsu Take 1 [facility] acid/vit B 5-05 le} capsule by st complex and 15:42: mouth Hospi ta C 49 Every l (DIALYVITE Saturday, ORAL) Saturday, and Saturday. After dialysis metoprolol Yes 25mg QD Take 25 mg M ethodi tartrate 5-[address] (LOPRESSOR) 15:42: every Hospi ta 25 mg 49 morning. l tablet sertraline Yes 50mg QD Take 50 mg M ethodi (ZOLOFT) 50 5-[address] MG tablet 15:42: daily. Hospit a 49 l losartan 2021- No 75mg Q.5D Take 3 Method i (COZAAR) 25 -05 06-[address] MG tablet 00:00: 04:59 (75 mg Hospi ta 00 :00 total) by l mouth 2 (two) times a day for 30 days. metroNIDAZO 0 2021- No [id number] 500mg [id number] Take 1 [facility] LE (FLAGYL) 06-15- [id number] tablet st 500 MG 00:00: 04:59 3D (500 mg Hospita tablet 00 :00 total) by l mouth 3 (three) times a day for 8 days. ciprofloxac 2021- No [id number] 500mg Q.5D Take 1 [facility] in (CIPRO) 5-05 05-[address] 500 MG 00:00: 04:59 (500 mg Hospita tablet 00 :00 total) by l mouth 2 (two) times a day for 8 days. acetaminoph 2021- No 2000mg QD Take 2,000 [facility] en 06-13 05-[address] (TYLENOL) 13:59: 00:00 mouth Hospit a 500 MG 20 :00 daily. l tablet gabapentin 2020- No 100mg Q.5D Take 100 M ethodi (NEURONTIN) 03-26 02-[address] 100 mg 17:35: 00:00 mouth 2 Hospita capsule 37 :00 (two) l times a day. Take 2 capsules (total of 200 mg) in the evening sulfamethox 2020- No 800mg QD Take 800 [facility] azole/trime 03-26-[address] thoprim 17:35: 00:00 mouth [...] (two) Hospita 31 times a l day. [place] twice daily diphenhydrA Yes 25mg Take 25 [...] l (PRESERVISI times a ON . ORAL) metoprolol 2020- No 25mg Q.5D Take [...] No 81mg Q.5D Take 1 [facility] (ECOTRIN) 03-25 03-15 tablet (81 st 81 MG 00:00: 04:59 mg total) Hospit a enteric 00 :00 by mouth 2 l coated (two) tablet times a day for 30 days. traZODone 2020- No 150mg QD Take 1 Meth herminia (DESYREL) 2- 03-[address] 150 MG 00:00: 04:59 (150 mg Hospita tablet 00 :00 total) by l mouth nightly for 30 days. zolpidem 2020- No 5mg QD Take 1 Method i (AMBIEN) 5 - 03-15 tablet (5 st MG tablet 00:00: 04:59 mg total) Ho spita 00 :00 by mouth l nightly for 30 days. clopidogrel 2019-02 Yes TAKE ONE [facility] (PLAVIX) 75 2-07 TABLET BY Col lege MG Tablet 00:00: MOUTH of 00 DAILY Medicin e Multiple 2019-02 Yes Qd [facility] Vitamins-Mi 0-08 College nerals (EYE 16:05: of [...] zolpidem 2019-02 Yes 10mg Take 10 mg [facility] (AMBIEN) 5 0-08 by mouth Colle ge MG tablet 16:05: nightly as of 09 needed for Medicin Sleep. e Sulfamethox 2019-02 Yes Take by [facility] azole-Trime 0-08 mouth College thoprim 16:05: daily. of (BACTRIM 09 Medicin OR) e furosemide 2019-02 Yes 40mg Take 40 mg [facility] (LASIX) 40 0-08 by mouth Colle ge MG tablet 16:05: daily. of 09 Medicin e gabapentin 2019-02 Yes 100mg Take 100 [facility] (NEURONTIN) 0-08 mg by [place] 100 MG 16:05: mouth two of capsule 09 times Medicin daily. e DESVENLAFAX 2019-02 2020- No Take by Ba ylor INE ER OR 0-08 11-18 mouth [place] 16:04: 00:00 daily. of 59 :00 Medicin e Coenzyme 2019- 2020- No 1 po qd [facility] Q10 100 MG 011-18 [place] CHEW 16:04: 00:00 of 50 :00 Medicin e Niacin CR 2019-02 2020- No 1 po qd [facility] or 500 MG CPCR 011-18 [place] 16:03: 00:00 of 53 :00 Medicin e Multiple 2019-02 Yes Qd [facility] Vitamins-Mi 0 [place] nerals (EYE 11:05: of VITAMINS Medicin OR) e Tamsulosin 2019-02 Yes 4mg 4 mg [facility] HCl 0.4 MG 0-08 daily. Qd Natan ege CAPS 11:05: of Medicin e FLUTICASONE 2019-02 Yes two times [facility] PROPIONATE, 0-08 daily. Bid Co llege INHAL, 11:05: of INHALATION- 09 Medicin B e pantoprazol 2019-02 Yes 40mg 40 mg [facility] e 0-08 daily. qd College (PROTONIX) 11:05: of 40 MG 09 Medicin tablet e zolpidem 2019-02 Yes 10mg Take 10 mg [facility] (AMBIEN) 5 0-08 by mouth Colle ge MG tablet 11:05: nightly as of needed for Medicin Sleep. e Sulfamethox 2019-02 Yes Take by [facility] azole-Trime 0-08 mouth [place] thoprim 11:05: daily. of (BACTRIM 09 Medicin OR) e furosemide 2019-02 Yes 40mg Take 40 mg [facility] (LASIX) 40 0-08 by mouth Colle ge MG tablet 11:05: daily. of Medicin e gabapentin 2019-02 Yes 100mg Take 100 Ba [facility] (NEURONTIN) 0-08 mg by [place] 100 MG 11:05: mouth two of capsule 09 times Medicin daily. e Colesevelam Yes TAKE [facility] HCl 3.75 g 11-03 DIRECTED Colle ge PACK 00:00: TWICE of 00 DAILY Medicin e Colesevelam 2019-0 Yes TAKE [facility] HCl 3.75 g 11-03 DIRECTED Colle [...] mg per tablet metoprolol Yes TAKE ONE [facility] (LOPRESSOR) 1-24 TABLET BY Col lege 50 MG 00:00: MOUTH of tablet 00 TWICE A Medicin DAY e metoprolol Yes TAKE ONE [facility] (LOPRESSOR) 1-24 TABLET BY Col lege [...] Q10 100 mg 2-15 [facility] Chew 17:11: [address] niacin 500 2016-02 Yes [address] [facility] MG CR 2-15 [facility] capsule 17:11: [address] COLESEVELAM 2016-02 Yes 3.75g Take 3.[address] HCL 2-15 g by mouth [facility] (WELCHOL 17:11: 2 (two) Medica l ORAL) 46 times Center daily with breakfast and dinner . coenzyme 2016-02 Yes [address] [facility] Q10 100 mg 2-15 [facility] Chew 17:11: [address] niacin 500 2016-02 Yes [address] [facility] MG CR 2-15 [facility] capsule 17:11: Medical 46 Center zolpidem 2016-02 Yes 10mg Take 10 [...] l (OSM) 24 hr 17 Center tablet zolpidem 2016-02 Yes 10mg Take 10 mg [...] tablet 00 :00 DAILY Medicin e tamsulosin 2014-0 Yes .4mg 0.[address] (FLOMAX) 5-23 [facility] 0.4 mg Cp24 00:00: Medica l 24 hr 00 Center capsule tamsulosin 2014-0 Yes .4mg 0.4 mg . [...] 5-12 [facility] mg tablet 00:00: Medical 00 [place] fluticasone Yes 2{spray Q.5D [address] (FLONASE) 5-12 } by Nasal [facility] 50 00:00: route 2 Medical mcg/actuati 00 (two) Center on nasal times spray daily . metoprolol Yes Q.5D 2 (two) [facility] (LOPRESSOR) 5-12 times [facility] 50 MG 00:00: daily . Medical tablet 00 [place] nisoldipine Yes 34mg QD 34 mg [facility] t (SULAR) 34 5-12 daily . [facility] MG 24 hr 00:00: Medical tablet [address] [place] [address] clopidogrel Yes QD daily . [facility] (PLAVIX) 75 5-12 [facility] mg tablet 00:00: Medical 00 [place] fluticasone Yes 2{spray Q.5D [address] (FLONASE) 5-12 } by Nasal [facility] 50 00:00: route 2 Medical mcg/actuati 00 (two) Center on nasal times spray daily . metoprolol Yes Q.5D 2 (two) [facility] (LOPRESSOR) 5-12 times [facility] 50 MG 00:00: daily . Medical tablet 00 [place] nisoldipine Yes 34mg QD 34 mg [facility] (SULAR) 34 5-12 daily . [facility] MG 24 hr 00:00: Medical tablet 00 [place] metoprolol 1- No 25mg QD Take 25 mg [facility] tartrate -12 -[address] (LOPRESSOR) 00:00: 00:00 daily. Hos imelda 50 MG 00 :00 l tablet CLOPIDOGREL Yes TAKE 1 Andres dora BISULFATE 1-08 TABLET BY l 75 MG TABS 10:35: MOUTH [place] n 00 DAILY NISOLDIPINE Yes TAKE 1 Andres dora ER 34 MG 1-08 TABLET BY l [id number] 10:35: MOUTH [place] 00 DAILY LOSARTAN Yes TAKE 1 Memoria [...] ER 34 MG 1-08 TABLET BY l [id number] 10:35: MOUTH [place] 00 DAILY LOSARTAN Yes TAKE 1 [facility] POTASSIUM 1-08 TABLET BY l 100 MG TABS 10:35: MOUTH Mary nn 00 DAILY CYMBALTA 60 Yes TAKE 1 Andres dora MG CPEP 1-08 TABLET BY l 10:35: MOUTH [place] DAILY PANTOPRAZOL Yes TAKE 1 Andres dora [...] TABLET BY l MG TABS 14:45: MOUTH [place] 00 DAILY LOSARTAN 2012-02 Yes TAKE 1 [facility] POTASSIUM 2-13 TABLET BY l 100 MG TABS 14:45: MOUTH Mary nn 00 DAILY WELCHOL 2012-02 Yes TAKE 1 [facility] 3.75 GM 2-13 TABLET BY l PACK 14:45: MOUTH Jimmy 00 DAILY CYMBALTA 60 2012-02 Yes TAKE 1 Andres dora MG CPEP 2-13 TABLET BY l 14:45: MOUTH [place] 00 DAILY PANTOPRAZOL 2012-02 Yes TAKE 1 Andres dora E SODIUM 40 2-13 TABLET BY l MG TBEC 14:45: MOUTH Jimmy 00 DAILY METOPROLOL 2012-02 Yes TAKE 1 [...] CAPS 2012-02 Yes Memoria 2-13 l 00:00: [place] 00 ASPIRIN 81 2012-02 Yes [facility]oria MG TABS 2-13 l 00:00: [place] 00 FLOMAX 0.4 2012-02 Yes one every Me moria MG CAPS 2-13 evening. l 00:00: [place] 00 LUNESTA 3 2012-02 Yes TAKE 1 Memori a MG TABS 2-13 TABLET BY l 00:00: MOUTH [place] 00 DAILY LUNESTA 3 2012-02 Yes TAKE 1 Memori a MG TABS 2-13 TABLET BY l 00:00: MOUTH [place] 00 DAILY FLOMAX 0.4 2012-02 No one every Me moria MG CAPS 2-13 evening. l 00:00: [place] 00 PLAVIX 75 2012-02 No TAKE 1 Memori a MG TABS 2-13 TABLET BY l 00:00: MOUTH Jimmy 00 DAILY OCUVITE EYE 2012-02 Yes Memori a + MULTI 2-13 l TABS 00:00: 00 COQ10 CAPS 2012-02 Yes [facility]oria 2-13 l 00:00: [place] 00 ASPIRIN 81 2012-02 Yes [facility]oria MG TABS 2-13 l 00:00: Jimmy 00 FLOMAX 0.4 2012-02 Yes one every Me moria MG CAPS 2-13 evening. l 00:00: [place] 00 LUNESTA 3 2012-02 Yes TAKE 1 Memori a MG TABS 2-13 TABLET BY l 00:00: MOUTH [place] 00 DAILY LUNESTA 3 2012-02 Yes TAKE [...] Name Name influenza 2010-10-16 Completed [facility] immunization (Flu 14:23:57 Jimmy Vax) has been administered influenza 2010-10-16 Completed [facility] immunization (Flu 14:23:57 Jimmy Vax) has been administered pneumococcal 2007-06-14 Completed [facility] 14:23:57 Jimmy administered pneumococcal 2007-06-14 Completed [facility] 14:23:57 Jimmy administered hepatitis B vaccine 2006-04-11 Completed Mem[facility] ial #3 15:23:57 Jimmy hepatitis B vaccine 2006-04-11 Completed [facility]3 15:23:57 [place] chicken pox 2006-03-20 Completed [facility] immunization #1 15:23:57 [place] chicken pox 2006-03-20 Completed [facility] immunization #1 15:23:57 [place] hepatitis B vaccine 2006-03-15 Completed [facility] #2 given 15:23:57 Jimmy hepatitis B vaccine 2006-03-15 Completed [facility] #2 given 15:23:57 Jimmy MMR (measles, mumps, 2006-02-28 Completed Andres rial rubella) virus 15:23:57 [place] immunization #1 MMR (measles, mumps, 2006-02-28 Completed Andres rial rubella) virus 15:23:57 [place] immunization #1 hepatitis B vaccine 2006-02-25 Completed [facility] #1 given 15:23:57 Jimmy hepatitis B vaccine 2006-02-25 Completed [facility] #1 given 15:23:57 [place] Vital Signs Vital Name Observation Time Observation Value Comments Source Heart rate 2021-05-15 14:59:00 72 /min [facility] Body height 2021-05-15 14:59:00 172.7 cm [facility] Systolic blood 2021-05-15 14:59:00 138 mm[Hg] [facility] pressure Medicine Diastolic blood 2021-05-15 14:59:00 74 mm[Hg] [facility] pressure Medicine Systolic blood 2019-11-19 15:57:00 146 mm[Hg] [facility] pressure Medicine Diastolic blood 2019-11-19 15:57:00 72 mm[Hg] [facility] pressure Medicine Heart rate 2019-11-19 15:57:00 91 /min [facility] Body height 2019-11-19 15:57:00 172.7 cm [facility] Body weight 2019-11-19 15:57:00 83.462 kg [facility] BMI 2019-11-19 15:57:00 27.98 kg/m2 [facility] Systolic blood 2019-11-19 15:57:00 146 mm[Hg] [facility] pressure Medicine Diastolic blood 2019-11-19 15:57:00 72 mm[Hg] [facility] Medicine Heart rate 2019-11-19 15:57:00 91 /min [facility] Body height 2019-11-19 15:57:00 172.7 cm [facility] Body weight 2019-11-19 15:57:00 83.462 kg [facility] BMI 2019-11-19 15:57:00 27.98 kg/m2 [facility] Systolic blood 2019-11-12 01:28:00 126 mm[Hg] [facility] Diastolic blood 2019-11-12 01:28:00 63 mm[Hg] [facility] Heart rate 2019-11-12 01:28:00 84 /min [facility] [place] Respiratory rate 2019-11-12 01:28:00 20 /min [facility] Oxygen saturation in 2019-11-12 01:28:00 100 /min [facility] of Arterial blood by [facility] Pulse oximetry Branch Systolic blood 2019-11-12 01:00:00 142 mm[Hg] [facility] Diastolic blood 2019-11-12 01:00:00 71 mm[Hg] Unive rs[facility] pressure [facility] Heart rate 2019-11-12 01:00:00 84 /min [facility] Respiratory rate 2019-11-12 01:00:00 14 /min [facility] Oxygen saturation in 2019-11-12 01:00:00 99 /min [facility] Arterial blood by [facility] Pulse oximetry Branch Body temperature 2019-11-11 22:21:00 36.61 Pat [facility] Body weight 2019-11-11 22:21:00 85 kg [facility] Systolic blood 2019-11-12 01:28:00 126 mm[Hg] [facility] Diastolic blood 2019-11-12 01:28:00 63 mm[Hg] Unive rsity [facility] Heart rate 2019-11-12 01:28:00 84 /min [facility] Respiratory rate 2019-11-12 01:28:00 20 /min Univ ersity [facility] Oxygen saturation in 2019-11-12 01:28:00 100 /min [facility] [place] [facility] P[facility]ximetry [place] Systolic blood 2019-11-12 01:00:00 142 mm[Hg] Univer sity of pressure [facility] Diastolic blood 2019-11-12 01:00:00 71 mm[Hg] Unive rsity of pressure [facility] Heart rate 2019-11-12 01:00:00 84 /min Universi ty [facility] Respiratory rate 2019-11-12 01:00:00 14 /min [facility] saturation in 2019-11-12 01:00:00 99 /min [facility] Arterial blood by [facility] Pulse oximetry [place] Body temperature 2019-11-11 22:21:00 36.61 Pat [facility] Body weight 2019-11-11 22:21:00 85 kg [facility] Systolic blood 2021-06-15 17:41:09 176 mm[Hg] Method [facility] pressure Diastolic blood 2021-06-15 17:41:09 70 mm[Hg] [facility] pressure Heart rate 2021-06-15 17:41:09 70 /min [facility] Body temperature 2021-06-15 17:41:09 36.89 Pat [facility] Respiratory rate 2021-06-15 17:41:09 18 /min [facility] Oxygen saturation in 2021-06-15 17:41:09 97 /min [facility] Arterial blood by Pulse oximetry Body height 2021-06-12 21:25:00 172.7 cm [facility] Body weight 2021-06-12 21:25:00 86.183 kg [facility] BMI 2021-06-12 21:25:00 28.89 kg/m2 [facility] Body height 2020-04-27 20:44:00 172.7 cm [facility] Body weight 2020-04-27 20:44:00 84.369 kg [facility] BMI 2020-04-27 20:44:00 28.28 kg/m2 [facility] Systolic blood 2020-03-26 14:44:51 139 mm[Hg] [facility] pressure Diastolic blood 2020-03-26 14:44:51 66 mm[Hg] [facility] pressure Heart rate 2020-03-26 14:44:51 80 /min [facility] Body temperature 2020-03-26 14:44:51 36 Pat [facility] Respiratory rate 2020-03-26 14:44:51 19 /min [facility] Oxygen saturation in 2020-03-26 14:44:51 96 /min [facility] Arterial blood by Pulse oximetry Height 2014-02-18 15:55:42 [facility] Weight 2014-02-18 15:55:42 [facility] Temperature Oral (F) 2014-02-18 15:55:42 97.5 F [facility] Heart Rate 2014-02-18 15:55:42 [facility] [place] Systolic (mm Hg) 2014-02-18 15:55:42 Andres rial Jimmy Diastolic (mm Hg) 2014-02-18 15:55:42 Mem orial [place] Weight 2013-01-23 19:53:21 [facility] [place] Temperature Oral (F) 2013-01-23 19:53:21 97.6 F [facility] Heart Rate 2013-01-23 19:53:21 [facility] [place] Height 2013-01-23 19:53:21 [facility] [place] Systolic (mm Hg) 2013-01-23 19:53:21 Andres rial Jimmy Diastolic (mm Hg) 2013-01-23 19:53:21 Mem orial [facility] Procedures Procedure Date / Time Performing Source Performed Clinician XR CHEST 2 VW 2021-09-15 Requisition, Paper [facility] 16:09:00 Medical Branch ASSIGNMENT OF BENEFITS 2021-09-15 Doctor Unassigned, [facility] 15:42:19 [facility] HEMOGLOBIN & HEMATOCRIT 2021-06-15 Maddy Guo [facility] 14:45:00 HEMODIALYSIS 2021-06-15 Jenny En[facility] 12:31:53 Jane HC COMPLETE BLD COUNT 2021-06-15 [facility] W/AUTO DIFF 09:14:00 BASIC METABOLIC PANEL 2021-06-15 [facility] 09:14:00 ESTIMATED GFR 2021-06-15 [facility] Hospit al 09:14:00 ECG 12-LEAD 2021-06-14 [facility] 18:49:23 Hetcor HC COMPLETE BLD COUNT 2021-06-13 Francesca Mac [facility] W/AUTO DIFF 23:02:00 COVID-19 QUALITATIVE 2021-06-13 Daniel Lee [facility] ospital RT-PCR 13:31:00 HEPATITIS B SURFACE 2021-06-13 Antony Ross [facility] ANTIGEN 12:37:00 HC COMPLETE BLD COUNT 2021-06-13 [facility] W/AUTO DIFF 09:33:00 Hector BASIC METABOLIC PANEL 2021-06-13 [facility] 09:33:00 Hector MAGNESIUM LEVEL 2021-06-13 [facility] 09:33:00 Hector PARTIAL THROMBOPLASTIN 2021-06-13 [facility] TIME (PTT) 09:33:00 Hector TROPONIN T 2021-06-13 [facility] 09:33:00 Hector ESTIMATED GFR 2021-06-13 [facility] 09:33:00 Hector TOTAL IRON BINDING 2021-06-13 [facility] pital CAPACITY 09:33:00 Hector FERRITIN LEVEL 2021-06-13 [facility] al 09:33:[address] ABDOMEN PELVIS WO 2021-06-13 Cano [facility] CONTRAST 05:03:23 ECG ED PRELIMINARY 2021-06-[address] [facility] pital INTERPRETATION 02:34:56 Arturo R. HEMODIALYSIS 2021-06-13 Antony Ross [facility] pital 02:16:04 HC COMPLETE BLD COUNT 2021-06-12 [facility] W/AUTO DIFF 22:50:00 Arturo R. PROTHROMBIN TIME WITH INR 2021-06-[address] [facility] 22:50:00 Arturo R. TYPE AND SCREEN 2021-06-12 [facility] al 22:50:00 Arturo R. COMPREHENSIVE METABOLIC 2021-06-12 [facility] PANEL 22:50:00 Arturo Gupta LIPASE LEVEL 2021-06-12 [facility] 22:50:00 Arturo Gupta ESTIMATED GFR 2021-06-12 [facility] 22:50:00 Arturo Gupta ECG 12-LEAD 2021-06-12 [facility] 21:49:24 Arturo Gupta ELECTROCARDIOGRAM COMPLETE 2021-05-15 [facility] of 13:13:49 Medicine (SCN) NUCLEAR MED SCAN 2021-05-15 [facility]lege of 09:49:10 Medicine (SCN) SCANNED ORDER 2021-05-15 [facility] Colle ge of 09:49:10 Medicine [id number] 2020-05-24 [facility] 00:[facility]:00 [facility] [id number] 2020-05-20 GIBJE.01 [facility] 00:00:00 [facility] [id number] 2020-05-20 GIBJE.01 [facility] 00:00:00 [facility] [id number] 2020-05-20 GIBJE.01 [facility] 00:00:00 [facility] [id number] 2020-05-20 SEEGE [facility] 00:00:00 [facility] [id number] 2020-05-16 JSUTINO.03 [facility] 00:00:00 [facility] [id number] 2020-05-14 JUSTINO.03 [facility] 00:00:00 [facility] [id number] 2020-05-11 [facility] 00:00:00 [facility] [id number] 2020-05-11 [facility] 00:00:00 [facility] [id number] 2020-05-11 [facility] 00:00:00 [facility] [id number] 2020-05-11 [facility] 00:00:00 [facility] [id number] 2020-03-30 [facility] 00:00:00 [facility] [id number] 2020-03-30 [facility] 00:00:00 [facility] [id number] 2020-03-30 [facility] 00:00:00 [facility] [id number] 2020-03-30 [facility] 00:00:00 Rehabilitation C jaycob [id number] 2020-03-30 [facility] 00:00:00 Rehabilitation C jaycob [id number] 2020-03-30 [facility] 00:00:00 Rehabilitation C jaycob [id number] 2020-03-30 [facility] 00:00:00 Rehabilitation C jaycob [id number] 2020-03-30 [facility] 00:00:00 Rehabilitation C jaycob [id number] 2020-03-30 [facility] 00:00:00 Rehabilitation C jaycob [id number] 2020-03-30 [facility] 00:00:00 Rehabilitation C jaycob [id number] 2020-03-30 [facility] 00:00:00 Rehabilitation C jaycob [id number] 2020-03-30 [facility] 00:00:00 Rehabilitation C jaycob [id number] 2020-03-30 [facility] 00:00:00 Rehabilitation C jaycob [id number] 2020-03-30 [facility] 00:00:00 Rehabilitation C jaycob [id number] 2020-03-30 [facility] 00:00:00 Rehabilitation C jaycob [id number] 2020-03-30 [facility] 00:00:00 Rehabilitation C jaycob [id number] 2020-03-30 [facility] 00:00:00 Rehabilitation C jaycob [id number] 2020-03-30 [facility] 00:00:00 Rehabilitation C jaycob [id number] 2020-03-30 [facility] 00:00:00 Rehabilitation C jaycob [id number] 2020-03-30 [facility] 00:00:00 Rehabilitation C jaycob [id number] 2020-03-30 [facility] 00:00:00 Rehabilitation C jaycob [id number] 2020-03-30 [facility] 00:00:00 Rehabilitation C ypress HC COMPLETE BLD COUNT 2020-03-25 [facility] W/AUTO DIFF 10:45:00 Obi BASIC METABOLIC PANEL 2020-03-25 [facility] 10:00:00 Obi ESTIMATED GFR 2020-03-25 [facility] Hospit al 10:00:00 Obi HEMODIALYSIS 2020-03-24 Maldonado [facility] 22:39:54 Deepak HC COMPLETE BLD COUNT 2020-03-24 [facility] W/AUTO DIFF 11:00:00 Obi BASIC METABOLIC PANEL 2020-03-24 [facility] 10:00:00 Obi ESTIMATED GFR 2020-03-24 [facility] Hospit al 10:00:00 Obi US CAROTID DUPLEX 2020-03-23 [facility] BILATERAL 18:31:05 BASIC METABOLIC PANEL 2020-03-23 [facility] 09:20:00 Obi HC COMPLETE BLD COUNT 2020-03-23 [facility] W/AUTO DIFF 09:20:00 Obi ESTIMATED GFR 2020-03-23 [facility] Hospit al 09:20:00 Obi POC GLUCOSE 2020-03-22 [facility] Hospit al 22:27:00 Obi HEMODIALYSIS 2020-03-22 [facility] 22:13:20 Tabitha ANAEROBIC CULTURE 2020-03-22 Usha, Obi [facility] 20:52:00 FUNGUS CULTURE 2020-03-22 Usha, Obi [facility] 20:52:00 AFB STAIN 2020-03-22 Usha, Obi [facility] 20:52:00 AEROBIC CULTURE 2020-03-22 Usha, Obi [facility] 20:52:00 FUNGUS SMEAR 2020-03-22 Usha, Obi [facility] 20:52:00 ANAEROBIC CULTURE 2020-03-22 Obi [facility] 20:50:00 FUNGUS CULTURE 2020-03-22 Usha, Obi [facility] 20:50:00 AFB STAIN 2020-03-22 Obi [facility] 20:50:00 AEROBIC CULTURE 2020-03-22 Usha, Obi [facility] 20:50:00 GRAM STAIN 2020-03-22 Usha, Obi [facility] 20:50:00 SURGICAL PATHOLOGY REQUEST 2020-03-22 [facility] 20:30:00 Obi AFB CULTURE 2020-03-22 Usha, Obi [facility] 19:52:00 AFB CULTURE 2020-03[facility] 19:[facility]:00 OR [place] < 1 HOUR 2020-03-22 [facility] 19:30:00 [place] AN ELECTIVE 2020-03-22 [facility] ENDOTRACHEAL AIRWAY 19:25:28 AMPUTATION, ABOVE KNEE 2020-03-22 [facility] 18:47:00 POC GLUCOSE 2020-03-22 [facility] 15[facility]07[facility]00 Obi HC COMPLETE BLD COUNT 2020-03-22 [facility] W/AUTO DIFF 12:45:00 TYPE AND SCREEN 2020-03-22 [facility] 12:45:00 VANCOMYCIN LEVEL, RANDOM 2020-03-22 [facility] 10:00:00 Yasser BASIC METABOLIC PANEL 2020-03-22 [facility] 10:00:00 Obi ESTIMATED GFR 2020-03-22 [facility] 10:00:00 Obi LIPID PANEL 2020-03-22 Bear Mariee [facility] 10:00:00 HEPATITIS B SURFACE 2020-03-21 Kumar Ayala ospital ANTIGEN 14:22:00 PROTHROMBIN TIME WITH INR 2020-03-21 [facility] 12:15:00 PARTIAL THROMBOPLASTIN 2020-03-21 [facility] TIME (PTT) 12:15:00 BASIC METABOLIC PANEL 2020-03-21 [facility] 12:15:00 CBC WITH PLATELET AND 2020-03-21 [facility] DIFFERENTIAL 12:15:00 VANCOMYCIN LEVEL, RANDOM 2020-03-21 [facility] 12:15:00 Yasser ESTIMATED GFR 2020-03-21 [facility] pital 12:15:00 Yasser HEMODIALYSIS 2020-03-21 Kumar Ayala Hos[facility] sean 06:05:17 VANCOMYCIN LEVEL, RANDOM 2020-03-20 [facility] 20:54:00 Yasser BASIC METABOLIC PANEL 2020-03-20 [facility] 11:30:00 Obi ESTIMATED GFR 2020-03-20 [facility] 11:30:00 Obi TTE COMPLETE, W CONTRAST, 2020-03-19 [facility] W DOPPLER ([id number]) 18:00:00 [place] HC COMPLETE BLD COUNT 2020-03-19 [facility] W/AUTO DIFF 10:14:00 MRI KNEE WO CONTRAST RIGHT 2020-03-19 [facility] 09:38:00 [place] MRI THIGH WO CONTRAST 2020-03-19 [facility] RIGHT 08:52:00 Ryan MRI LOWER EXTREMITY WO 2020-03-19 [facility] CONTRAST RIGHT 08:07:00 [place] BASIC METABOLIC PANEL 2020-03-19 [facility] 07:01:00 ESTIMATED GFR 2020-03-19 [facility] LACTIC ACID LEVEL 2020-03-19 [facility] ital 07:01:00 LACTIC ACID LEVEL, SEPSIS 2020-03-19 [facility] - NOW AND REPEAT 2X EVERY 01:46:00 [place] 3 HOURS BLOOD CULTURE, AEROBIC & 2020-03-18 [facility] ANAEROBIC 23:22:00 [place] COVID-19 QUALITATIVE 2020-03-18 [facility] RT-PCR 23:22:00 [place] BLOOD CULTURE, AEROBIC & 2020-03-18 [facility] ANAEROBIC 23:16:00 [place] HC COMPLETE BLD COUNT 2020-03-18 [facility] W/AUTO DIFF 23:16:00 [place] PROTHROMBIN TIME WITH INR 2020-03-18 [facility] 23:16:00 [place] PARTIAL THROMBOPLASTIN 2020-03-18 [facility] TIME (PTT) 23:16:00 [place] TYPE AND SCREEN 2020-03-18 Fer, [facility] 23:16:00 [place] COMPREHENSIVE METABOLIC 2020-03-18 [facility] PANEL 23:16:00 [place] LACTIC ACID LEVEL, SEPSIS 2020-03-18 [facility] - NOW AND REPEAT 2X EVERY 23:16:00 [place] 3 HOURS C-REACTIVE PROTEIN 2020-03-18 Fer [facility] 23:16:00 [place] SEDIMENTATION RATE 2020-03-18 [facility] 23:16:00 [place] ESTIMATED GFR 2020-03-18 [facility] 23:16:00 [place] URINE CULTURE [facility]18 [facility] 23:10[facility]00 [place] URINALYSIS SCREEN AND 2020-03-18 [facility] MICROSCOPY, WITH REFLEX TO 23:10:00 [place] CULTURE XR KNEE 1 OR 2 VW RIGHT 2020-03-18 [facility] 23:03:39 [place] XR TIBIA FIBULA 2 VW RIGHT 2020-03-18 [facility] 23:03:04 [place] URINALYSIS 2019-11-11 Nelia [facility] 23:48:00 Medical Branch XR CHEST 1 VW 2019-11-11 [facility] 23:02:37 Medical Branch MAGNESIUM 2019-11-11 Nelia [facility] 22:43:00 Medical Branch COMP. METABOLIC PANEL 2019-11-11 Nelia [facility] ([id number]) 22:43:00 Medical Branch CBC WITH DIFF 2019-11-11 Nelia [facility] 22:43:00 Medical Branch TROPONIN I 2019-11-11 Nelia, [facility] 22:43:00 [facility] Branch EKG-12 LEAD 2019-11-11 Nelia [facility] 22:40:13 Medical Branch Plan of Care Planned Activity Planned Date Details Comments Source Future Scheduled 2021-10-27 HEPATITIS B VACCINES (1 [facility] 04:11:20 of 3 - 3-dose series) Hospit al [code = HEPATITIS B VACCINES (1 of 3 - 3-dose series)] Future Scheduled 2021-10-27 65+ PNEUMOCOCCAL Methodi st Test 04:11:20 VACCINE (1 - PCV) [code Hosp ital = 65+ PNEUMOCOCCAL VACCINE (1 - PCV)] Future Scheduled 2021-10-27 SHINGLES VACCINES (1 of Worship Test 04:11:20 2) [code = SHINGLES Hospital VACCINES (1 of 2)] Future Scheduled 2021-10-27 COLONOSCOPY SCREENING [facility] 04:11:20 [code = COLONOSCOPY Hospital SCREENING] Future Scheduled 2021-10-27 COVID-19 VACCINE (3 - [facility] Test 04:11:20 Booster for Pfizer Hospital series) [code = COVID-19 VACCINE (3 - Booster for Pfizer series)] Future Scheduled 2021-10-27 INFLUENZA VACCINE [code Worship Test 04:11:20 = INFLUENZA VACCINE] Hospita l Future Scheduled 2021-05-15 Screening for malignant [facility] Test 12:13:46 neoplasm of colon of Medicin e (procedure) [code = 516936036] Future Scheduled 2021-05-15 COVID-19 Vaccine (1) [facility] Test 12:13:46 [code = COVID-19 of Medicine Vaccine (1)] Future Scheduled 2021-05-15 TETANUS SHOT (ADULT) [facility] Test 12:13:46 [code = TETANUS SHOT of Medi cine (ADULT)] Future Scheduled 2021-05-15 BMI FOLLOW UP PLAN [facility] Test 12:13:46 [code = BMI FOLLOW UP of Med icine PLAN] Future Scheduled 2021-05-15 Hepatitis C screening [facility] Test 12:13:46 (procedure) [code = of Medic ine [id number]] Future Scheduled 2021-05-15 ZOSTER VACCINE (1 of 2) [facility] Test 12:13:46 [code = ZOSTER VACCINE of Me dicine (1 of 2)] Future Scheduled 2021-05-15 FALL SCREEN [code = [employer] Test 12:13:46 FALL SCREEN] of Medicine Future Scheduled 2021-05-15 Pneumococcal 65+ (1 of B [facility] Test 12:13:46 1 - PPSV23) [code [...] M edicine MONTHS] Future Scheduled 2021-05-15 ELECTROCARDIOGRAM [facility] Test 10:00:47 COMPLETE [code = 20421] of M edicine Diagnostic Test 2021-05-15 MYOCARD PERFUSION - Expected: [employer] Pending 00:00:00 LEXISCAN [code = 86603] 05/15/2021, of M edicine Expires: 11/14/2022 Diagnostic Test 2021-05-15 ECHO, COMPLETE [code = Expected: [employer] Pending 00:00:00 10341] 05/15/2021, of Medicine Expires: 11/14/2021 Future Scheduled ELECTROCARDIOGRAM [facility] Test COMPLETE [code = 14390] of M edicine Future Scheduled COLON CANCER SCREENING: [facility] Test COLONOSCOPY [code = of Medic ine COLON CANCER SCREENING: COLONOSCOPY] Future Scheduled TETANUS SHOT (ADULT) [employer] Test [code = TETANUS SHOT of Medi cine (ADULT)] Future Scheduled BMI FOLLOW UP PLAN [employer] Test [code = BMI FOLLOW UP of Med icine PLAN] Future Scheduled HEPATITIS C SCREENING [employer] Test [code = HEPATITIS C of Medic ine SCREENING] Future Scheduled ZOSTER VACCINE (1 of 2) [facility] Test [code = ZOSTER VACCINE of Me dicine (1 of 2)] Future Scheduled FALL SCREEN [code = [employer] Test FALL SCREEN] of Medicine Future Scheduled PNEUMOVAX >=65 (PPSV23) [facility] Test [code = PNEUMOVAX >=65 of [...] VACCINES (#1)] Future Scheduled INFLUENZA VACCINE [code Worship Test = INFLUENZA VACCINE] Hospita l Future Scheduled EVENT MONITOR [code = 1 Occurrences B [facility] Test 60839] starting of Medicine 11/19/2019 until 02/17/2020 Encounters Start End Encounter Admission Attending Care Care Encounter Source Date/Time Date/Time Type Type Clinicians Facility Department ID 2021-03-09 Outpatient 3 [id number] ENCPL BIT [id number] [facility] 11:54:24 [id number] [facility] [place] 2021-03-09 Outpatient 3 [id number] ENCPL REF [facility] 11:53:41 [id number] [facility] [place] 2021-03-09 Outpatient 3 [id number] ENCPL REF [facility] 11:50:56 0329 [facility] [place] 2021-03-09 Outpatient 3 MICHELLE DIAZ AML [id number] [facility] 11:34:54 IGNAZIO 18940 [facility] [place] 2021-03-09 Outpatient 3 [id number] ENCPL REF [facility] 11:33:20 0212 [facility] [place] 2021-03-09 Outpatient 3 [id number] ENCPL REF [id number] [facility] 11:32:52 0211 [facility] [place] 2021-03-09 Outpatient 3 [id number] ENCPL REF [id number] [facility] 11:32:32 0210 [facility] [place] 2020 Outpatient Provider, CHRISTIAN GONZALES [id number] [facility] 10:29:00 Turner Lackey [facility] 2020 Inpatient KENDRA Curtis [id number] [facility] 10:29:[address] [place] [address] 2020 Inpatient Srinivas, HCACL HCACL [id number] [facility] 10:28:59 Lambert 61 [facility] 2020-06-07 Inpatient SYED Curtis, HCACL HCACL [id number] [facility] 18:10:16 Sekou 19 [facility] 2020-05-16 Inpatient HCACL HCACL [id number] [facility] 06:04:26 61 [facility] 2020-03-26 Inpatient 3 Keegan, JENNIFERPL AML [id number] [facility] 12:00:00 Chaya [facility] [place] 2021-09-15 2021-09-15 Outpatient R RADIOLOGY [facility] [id number] Univers 10:45:54 23:59:00 ity of [facility] 2021-09-15 2021-09-15 Hospital Radiology [facility] [id number] Univers 10:45:00 23:59:00 Encounter ZAYDA [id number] ity of RADIANT [id number] [facility] [id number] [facility] raman 807 Branch 2021-09-15 2021-09-15 Orders Doctor PENELOPE [id number] Univers 00:00:00 00:00:00 Only Unassigned, ROSE MARY [id number] [facility] [id number] [facility] [id number] [facility] raman 009 Branch 2021-08-09 2021-08-09 Telemedici Brant [id number] Methodi 13:00:00 13:08:06 ne Maddy [id number] [id number] Hospit a .[id number] l .8 2021-08-09 2021-08-[address] [facility] [id number] [place] 00:00:00 00:00:00 MADDY 900 Method i st 2021-07-31 2021-08-01 Outpatient CHELSEA KENNY [facility] [id number] 173 [facility] 16:42:10 08:16:24 SVETLANA Oseguera 2021-06-12 2021-06-15 [facility] Arturo FarnsworthMarva 1.2.84 0.1 [id number] Methodi 16:33:00 15:42:00 Encounter RachaelSvetlana 53390.1.1 6 31 [facility] 3.430.2.7 Ho spita .3.983477 l .8 2021-06-12 2021-06-[address]EE [facility] 064 2100 [id number] [place] 00:00:00 00:00:[address] 2021-05-25 2021-05-25 Outpatient [facility] [id number] [facility] 08:47:29 16:40:23 [facility] 2021-05-25 2021-05-25 Outpatient SULAIMAN [facility] [id number] 405 [facility] 08:52:28 14:12:09 LOVE bravo [facility] Medicin e 2021-05-15 2021-05-15 Office ZOYA [facility] 1.2.309.827 0430 2613 [facility] 09:49:10 10:49:30 Visit SVETLANA AMBULATOR 350.1.13.21 College Y 0.2.7.2.686 of 347.5303212 Medi sky 300 e 2021-03-29 2021-03-29 Telephone Jaime 1.2.840.0 [id number] Methodi 00:00:00 00:00:00 Nicky 85183.1.1 906 3.430.2.7 Hospit a .3.791010 l .8 2020-12-07 2020-12-07 Outpatient [facility] [id number] 482 [place] 00:00:00 00:00:00 ZUNIRAH [address] 2020-10-01 2020-10-06 Inpatient [facility] 012 [id number] 25 [place] 00:00:00 00:00:00 SANDRA [address] 2020-05-13 2020-05-13 [facility] [id number] 8564 [facility] 01:23:22 01:23:22 CHAYA 34 [facility] 2020-04-27 2020-04-27 [facility] Obi Kerr 1.2.840.1 [id number] Methodi 15:36:30 16:10:[address] 3.430.2.7 Hospit a .3.777815 l .8 2020-04-27 2020-04-27 Travel 1.2.840.1 1.2.268.359 8127 315341 Methodi 00:00:00 00:00:[address] 3.430.2.7 0.2.7.3.698 Ho spita .3.006753 084.8 l .8 2020-04-26 2020-04-26 Travel 1.2.840.1 1.2.736.273 9952 251676 Methodi 00:00:00 00:00:[address] 3.430.2.7 0.2.7.3.698 Ho spita .3.948587 084.8 l .8 2020-04-13 2020-04-18 [facility] Obi Kerr 1.2.840.1 [id number] 858 [id number] Methodi 11:45:02 00:23:05 Visit Archie 28981.1.[address] 3.430.2.7 Hospit a .3.623241 l .8 2020-04-13 2020-04-13 Travel 1.2.840.1 1.2.197.171 2184 034871 Methodi 00:00:00 00:00:[address] 3.430.2.7 0.2.7.3.698 Ho spita .3.622015 084.8 l .8 2020-04-05 2020-04-05 Abstract Sugar 1.2.840.1 [id number] 900 8816304 Methodi 00:00:00 00:00:[address] 3.430.2.7 Hospit a .3.139872 l .8 2020-04-04 2020-04-04 [facility] Obi Kerr 1.2.840.1 [id number] 568 [id number] Methodi 13:34:38 14:35:21 Visit Archie 20227.1.[address] 3.430.2.7 Hospit a .3.302327 l .8 2020-04-04 2020-04-04 Travel 1.2.840.1 1.2.902.064 4348 129850 Methodi 00:00:00 00:00:[address] 3.430.2.7 0.2.7.3.698 Ho spita .3.848726 084.8 l .8 2020-04-01 2020-04-01 [facility] Sugar, 1.2.840.1 [id number] 2099 481097 Methodi 00:00:00 00:00:00 Only Emilee 50483.1.[address] 3.430.2.7 Hospit a .3.097545 l .8 2020-04-01 2020-04-01 Travel 1.2.840.1 1.2.036.177 1092 706738 Methodi 00:00:00 00:00:[address] 3.430.2.7 0.2.7.3.698 Ho spita .3.664298 084.8 l .8 2020-03-18 2020-03-26 [facility] 1.2.840 .1 [id number] Methodi 15:51:00 11:35:00 Encounter Clint King 08036.1.[address] Dickson, Umar 3.430.2.7 Hos imelda .3.358510 l .8 2020-03-22 2020-03-22 Anesthesia Liu Mccloud 1.2.840.1 3345515 84 [id number] Methodi 12:47:00 16:31:00 Event Clint Graham 54491.1.[address] 3.430.2.7 Hospit a .3.220890 l .8 2020-03-22 2020-03-22 Surgery Obi Kerr 1.2.840.1 [id number] 780 [id number] Methodi 12:53:00 14:38:[address] 3.430.2.7 Hospit a .3.470638 l .8 2019-11-19 2019-11-19 Office CHELSEA York 1.2.840.114 399198 10:50:53 15:23:52 Visit Oswald S AMBULATOR 350.1.13.21 Y 0.2.7.2.686 637.5127886 300 2019-11-19 2019-11-19 Office CHELSEA York 1.2.840.[address] [place] [address] 10:50:53 15:23:52 Visit Oswald S AMBULATOR 350.1.13.21 College Y 0.2.7.2.686 666.0887893 [facility] 300 e 2019-11-11 2019-11-11 Emergency Wanda Pickens [facility] 1.2.840.114 78 827494 17:16:00 22:21:00 Lisa Pineda 350.1.13.10 [place] 4.2.7.2.686 [place] 753.9351422 08 2019-11-11 2019-11-11 Emergency Wanda Pickens [facility] 1.2.840.114 78 [id number] [facility] 17:16:00 22:21:00 Lisa Pineda 350.1.13.10 i ty of [place] 4.2.7.2.686 [facility] 953.4148753 [facility] 084 Branch 2019-11-11 2019-11-11 Emergency X Wanda PICKENS [facility] ERT 484258 8520 Univers 17:16:00 17:16:00 ity of [facility] 2019-11-03 2019-11-03 Telephone Melany, 1.2.840.1 [id number] 2100 [id number] Methodi 09:01:34 09:25:16 Consult Liss Baxter 45929.1.[address] 3.430.2.7 Hospit a .3.234102 l .8 2014-02-18 2014-02-18 Lab Report Cristal Huynh 1736 615119 [facility] 00:00:00 00:00:00 artie Marquez 264960 [facility] 2014-02-18 2014-02-18 Office Cristal Huynh [id number] 141 [facility] 00:00:00 00:00:00 Visit artie Jimmy 754775 [facility] 2013-01-23 2013-01-23 Lab Report Cristal Huynh 1702 732626 [facility] 00:00:00 00:00:00 artie Marquez 536647 [facility] Results Test Description Test Time Test Comments Results Result Comments Source ECG 12 lead 2021-06-14 22:14:01 Test Item Value Reference Range Interpretation Comme nts Ventricular rate (test code = 253) Atrial rate (test code = 255) TN interval (test code = 266) QRSD interval (test code = 260) QT interval (test code = 264) QTC interval (test code = 265) P axis 1 (test code = 267) QRS axis 1 (test code = 268) T wave axis (test code = 270) EKG impression (test code = 273) Sinus rhythm with 1st degree AV bl ock-Right bundle branch block-Abnormal ECG-In automated comparison with ECG of 12-JUN-2021 16:49,-No significant change was found- Worshipalis RichardsonBufclyumLFUY-TdE-8 (COVID-19) RNA [Presence] in Respiratory specimen by GREGORIO with probe [id number] 16:18:00 Test Item Value Reference Range Interpretation Comments SARS-CoV-2 (COVID-19) RNA Not detected [Presence] in Respiratory specimen by GREGORIO with probe detection (test code = 08813-9) Whether patient is employed in a Unknown healthcare setting (test code = 54209-1) Whether the patient has symptoms Unknown related to condition of interest (test code = 92346-2) Whether the patient was Unknown hospitalized for condition of interest (test code = 26052-2) Whether the patient was admitted Unknown to intensive care unit (ICU) for condition of interest (test code = 68318-5) Whether patient resides in a Unknown congregate care setting (test code = 27711-3) status (test code = Unknown 19991-6) Date and time of symptom onset Unknown (test code = 87661-1) [facility] ED Preliminary Interpretation - Not an [id number] 02:34:56 Test Item Value Reference Range Interpretation Comments JACQUELYN (test code = JACQUELYN) Arturo Farnsworth MD 06/13/2021 9:00 [facility] ED Preliminary Interpretation - Not an OrderPerformed by: Arturo Farnsworth MDAuthorized by: Arturo Farnsworth MD ECG reviewed by ED Physician in the absence of a family service caseworker: yes Interpretation: Interpretation: abnormal Rate: ECG rate: 65 ECG rate assessment: normal Rhythm: Rhythm: sinus rhythm and A-V block Ectopy: Ectopy: none QRS: QRS axis: Normal QRS intervals: NormalConduction: Conduction: abnormal 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 ST segments: ST segments: Non-specific Lab Interpretation Abnormal (test code = 17058-8) [facility] CHEST 1 [id number] 14:08:00 [facility] : 1945 Sex: M FAX: Sekou Amezcua [phone] [place]: [address]: ADM Name: DARIEN GROSSMAN [facility] Max Smith : 1945 Age/S: 74/M [address] [place] [address] Blvd Unit #: [id number] Loc: [place] [address] Phys: Sekou Curtis MD Acct: [id number] Dis Date: Status: ADM IN PHONE #: [phone] Exam Date: 05/31/20201405 FAX #: [phone] Reason: HD protocol, need to make sure no TB EXAMS: CPT CODE: [id number] XR CHEST 1 V 79029 EXAM: Single view AP chest. EXAM DATE: 05/31/2020 at 1353 hours CLINICAL HISTORY: HD protocol, need to make sure no TB COMPARISON: None Heart is mildly enlarged.. Atherosclerotic calcifications and tortuosity ofthe intrathoracic aorta is identified.. Lungs appear free of acute disease. Imaged osseous structures are unremarkable. IMPRESSION: Mild cardiomegaly. No acute pulmonary findings. at 1408 Reported and signed by: Yesika Kumar M.D. CC: Sekou Curtis Technologist: RT Marques(Artie) Trnscrd Date/Time/By: 05/31/2020 (1407) : By: Enedelia Orig Print D/T: S: 05/31/2020 (1718) PAGE 1 Signed Report- XR CHEST 1 [id number] 14:08:00 [facility] MAX SMITHName: DARIEN GROSSMAN : 1945 Sex: M FAX: Sekou Amezcua [phone] [place]: St: DIS Name: DARIEN GROSSMAN [facility] : 1945 Age/S: 74/M [address] Unit #: [id number] Loc: [place] [address] Phys: Sekou Curtis MD Acct: [id number] Dis Date: Status: DIS IN PHONE #: [phone] Exam Date: 05/31/20201405 FAX #: [phone]: HD protocol, need to make sure no TB EXAMS: CPT CODE: [id number] XR CHEST 1 V 54317 EXAM: Single view AP chest. EXAM DATE: 05/31/2020 at 1353 hours CLINICAL HISTORY: HD protocol, need to make sure no TB COMPARISON: None Heart is mildly enlarged.. Atherosclerotic calcifications and tortuosity ofthe intrathoracic aorta is identified.. Lungs appear free of acute disease. Imaged osseous structures are unremarkable. IMPRESSION: Mild cardiomegaly. No acute pulmonary findings. at 1408 Reported and signed by: Yesika Kumar M.D. CC: Sekou Curtis Technologist: RT Marques(Artie) Trnscrd Date/Time/By: 05/31/2020 (1408) : By: Enedelia Orig Print D/T: S: 05/31/2020 (7828) PAGE 1 Signed ReportBASIC METABOLIC [id number] 05:15:00 Test Item Value Reference Range Interpretation [...] code = 8.5 mg/dL 8.0-10.5 N CA) [id number] 05:15:00 Test Item Value Reference Range Interpretation Comments ALBUMIN (test code = ALB) 3.10 g/dL 3.4-5.0 L [id number] 05:15:00 Test Item Value Reference Range Interpretation Comments PREALBUMIN (test code = PREALB) 27.0 mg/dL 16.0-40.0 N [id number] 23:17:00 Test Item Value Reference Range Interpretation Comments GLUBED (test code = 95 MG/DL 70-110 N Performe d by certified GLUBED) 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 on 05/29/20:371944 /18/21 0935: CA previo usly reported as: 8. 2 mg/dL BASIC METABOLIC [id number] 07:53:00 Test Item Value Reference Range Interpretation [...] 8.2 mg/dL 8.0-10.5 N CA) BASIC METABOLIC [id number] 04:28:00 Test Item Value Reference Range Interpretation [...] 9.3 mg/dL 8.0-10.5 N CA) CBC W/AUTO [id number] 08:31:00 Test Item Value Reference Range Interpretation [...] (test code NO = MDIFF) BASIC METABOLIC [id number] 07:59:00 Test Item Value Reference Range Interpretation [...] CA) - USG NDL PLACEMENT (Bxg/Asp)2020-05-24 15:12:00 [facility] : 1945 Sex: M Name: DARIEN GROSSMAN [facility] Kayenta : 1945 Age/S: 74 / M [address] [place] [address] Unit #: [id number] Loc: [place] [address] 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 Informed consent was obtained. Timeout was performed prior to the procedure. Ultrasound was used to evaluate potential access sites. The knee stump was sterilely prepped and draped. 1% lidocaine was used for localanesthesia. Using ultrasound guidance, 18-gauge needle was advanced into the collection. Approximately 15 mL of blood-tinged fluid was aspirated and sample was sent to lab. Upon completion of the procedure, the needle was removed. Pressure was applied at the puncture site with adequate hemostasis. Sterile dressing was applied. There were no evident complications and the patient tolerated procedure well. Performed by: ZIA Marin Supervised and Electronically signed by: Paloma Arviuz DO FINDINGS: Total volume of 15 mL of blood-tinged fluid was removed. IMPRESSION: 1. Technically successful ultrasound-guided aspiration of a right knee stump collection. at 1512 Reported and signed by: Paloma Arvizu D.O. 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 Informed consent was obtained. Timeout was performed prior to the procedure. Ultrasound was used to evaluate potential access sites. The knee stump was sterilely prepped and draped. 1% lidocaine was used for localanesthesia. Using ultrasound guidance, 18-gauge needle was advanced into the collection. Approximately 15 mL of blood-tinged fluid was aspirated and sample was sent to lab. Upon completion of the procedure, the needle was removed. Pressure was applied at the puncture site with adequate hemostasis. Sterile dressing was applied. There were no evident complications and the patient tolerated procedure well. Performed by: ZIA Marin Supervised and Electronically signed by: Paloma Arvizu DO FINDINGS: Total volume of 15 mL of blood-tinged fluid was removed. IMPRESSION: 1. Technically successful ultrasound-guided aspiration of a right knee stump collection. at 1512 Reported and signed by: Paloma Arvizu D.O. 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 INDICATION: Right [...] iterative reconstruction techniques. DLP: 566 mGy-cm FINDINGS: Vcrol-qez-sbak amputation has been performed. A permeative pattern of much of the remaining visualized femoral cortex is seen although preserved fatty marrow density is present throughout much of the femur. However, at the distal stump site, there is loss of expected intramedullary fatty density. A complex soft tissue fluid collection is present at the stump site with septations or multiple loculations measuring approximately 6 cm AP, 5.7 cm transverse, and 3.8 cm craniocaudal dimension. Surrounding fatty injection is seen. IMPRESSION: Above the knee amputation changes with complex soft tissue fluid collection at the stump site. There is loss of fatty medullary density at the stump site. Osteomyelitis is not excluded. Correlate with MRI as clinically indicated. SL: SG-H t 1801 Reported and signed by: Dominic Mena M.D. 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 INDICATION: Right below knee amputation. Fluid collection. COMPARISON: None. TECHNIQUE: Noncontrast CT of the femur isperformed with thin cut reconstructions in all 3 planes. DOSE: CT imaging performed at this locationutilizes radiation dose optimization technique which includes one or more of the followin) Automated exposure control; 2) Adjustment of the mA and/or kV according to patient's size; 3) Use of iterative reconstruction techniques. DLP: 566 mGy-cm FINDINGS: Ukqwo-uid-ekhd amputation has been performed. A permeative pattern of much of the remaining visualized femoral cortex is seen although preserved fatty marrow density is present throughout much of the femur. However, at the distal stump site, there is loss of expected intramedullary fatty density. A complex soft tissue fluid collection is present at the stump site with septations or multiple loculations measuring approximately 6 cm AP, 5.7 cm transverse, and 3.8 cm craniocaudal dimension. Surrounding fatty injection is seen. IMPRESSION: Above the knee amputation changes with complex soft tissue fluid collection at the stump site. There is loss of fatty medullary density at the stump site. Osteomyelitis is not excluded. Correlate with MRI asclinically indicated. SL: SG-H at 1802 Reported and signed by: Dominic Mena M.D. CC: Sekou Curtis; Jonathan Sheikh [employer] TRUCK DRIVER Technologist:David Aguirre, RT(R)(CT) CTDI: DLP: Trnscb Date/Time: 05/23/2020 (1801) Michael.[email or web address] Orig PrintD/T: S: 05/23/2020 (1805) PAGE 1 Signed ReportBASIC METABOLIC [id number] 13:38:00 Test Item Value Reference Range Interpretation [...] code = 9.6 mg/dL 8.0-10.5 N CA) [id number] 13:38:00 Test Item Value Reference Range Interpretation Comments PHOSPHOROUS (test code = PHOS) 3.9 MG/DL 2.5-4.9 N [id number] 13:36:00 Test Item Value Reference Range Interpretation Comments ALBUMIN (test code = ALB) 3.20 g/dL 3.4-5.0 L [id number] 13:36:00 Test Item Value Reference Range Interpretation Comments PREALBUMIN (test code = PREALB) 14.3 mg/dL 16.0-40.0 L CBC W/AUTO [id number] 13:15:00 Test Item Value Reference Range Interpretation [...] (test code NO = MDIFF) SED RATE [id number] 08:19:00 Test Item Value Reference Range Interpretation Comments SED RATE BRAYANERGREN (test code = 114 mm/hr 0-15 H SEDW) [id number] 08:09:00 Test Item Value Reference Range Interpretation Comments PREALBUMIN (test code = PREALB) 13.1 mg/dL 16.0-40.0 L C REACTIVE [id number] 08:08:00 Test Item Value Reference Range Interpretation Comments C REACTIVE PROTEIN (test code = 192.0 mg/L <10.0 H CRP) CBC W/AUTO [id number] 07:57:00 Test Item Value Reference Range Interpretation [...] MDIFF) - XR HIP W/PEL UNI 2+V [id number] 18:35:00 [facility] : 1945 Sex: M FAX: Sekou Amezcua [phone] [place]: St: ADM FAX: Dusty Smiley [phone] Name: DARIEN GROSSMAN [facility] : 1945 Age/S: 74/M [address] [place] [address] Unit #: [id number] Loc: [address] [address] 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 TECHNIQUE: 2+ radiographic views left hip COMPARISONS: None. FINDINGS: There is no acute osseous fracture or dislocation. The hip joint spaces are preserved. There is mild enthesopathy of the left iliac crest. There are benign vascular calcifications in the pelvis. There are surgical clips in the right abdomen. There is no subcutaneous emphysema or unintentional retained radiodense foreign body. IMPRESSION: 1. There is no acute osseous fracture or dislocation. The hip joint spaces are preserved. at 1835 Reported and signed by: James Kitchen D.O. CC: Sekou Curtis; Dusty Smiley NP Technologist: Katie Romero RT(R) Trnscrd Date/Time/By: 05/21/2020 (1834) : By: [email or web address] Orig Print D/T: S: 05/21/2020 (1837) PAGE 1 Signed Report- XR HIP W/PEL UNI 2+V [id number] 18:35:00 [facility] : 1945 Sex: M FAX: Sekou Amezcua [phone] [place]: St: DIS FAX: Dusty Smiley [phone] Name: DARIEN GROSSMAN [facility] : 1945 Age/S: 74/M [address] [place] [address] Bl Unit #: [id number] Loc: [place] [address] Phys: Dusty Smiley NP Acct: [id number] Dis Date: Status: DIS IN PHONE #: [phone] Exam Date: 0 05/21/2020 1735 FAX #: [phone] Reason: left hip pain EXAMS: CPT CODE: [id number] XR HIP W/PEL UNI2+[place] [address] 2+ RADIOGRAPHIC VIEWS LEFT HIP INDICATION: left hip pain. TECHNIQUE: 2+ radiographic views left hip COMPARISONS: None. FINDINGS: There is no acute osseous fracture or dislocation. The hip joint spaces are preserved. There is mild enthesopathy of the left iliac crest. There are benign vascular calcifications in the pelvis. There are surgical clips in the right abdomen. There is no subcutaneous emphysema or unintentional retained radiodense foreign body. IMPRESSION: 1. There is no acute osseous fracture or dislocation. The hip joint spaces are preserved. at 1835 Reported and signed by: James Kitchen D.O. CC: Sekou Curtis; Dusty Smiley NP Technologist: RT Jesus(Artie) Trnscrd Date/Time/By: (1834) : By: [email or web address] Orig Print D/T: S: 05/21/2020 (1837) PAGE 1 Signed ReportCBC W/AUTO [id number] 07:47:00 Test Item Value Reference Range Interpretation [...] (test code NO = MDIFF) BASIC METABOLIC [id number] 07:40:00 Test Item Value Reference Range Interpretation [...] 9.1 mg/dL 8.0-10.5 N CA) COMPREHENSIVE METABOLIC [id number] 06:03:00 Test Item Value Reference Range Interpretation [...] TOTAL (test code = ALKP) CBC W/AUTO [id number] 05:49:00 Test Item Value Reference Range Interpretation [...] (test code NO = MDIFF) BASIC METABOLIC [id number] 08:43:00 Test Item Value Reference Range Interpretation [...] code = 9.0 mg/dL 8.0-10.5 N CA) [id number] 08:43:00 Test Item Value Reference Range Interpretation Comments PHOSPHOROUS (test code = PHOS) 4.7 MG/DL 2.5-4.9 N CBC W/AUTO [id number] 08:29:00 Test Item Value Reference Range Interpretation [...] (test code NO = MDIFF) BASIC METABOLIC [id number] 07:42:00 Test Item Value Reference Range Interpretation [...] 9.5 mg/dL 8.0-10.5 N CA) BASIC METABOLIC [id number] 09:55:00 Test Item Value Reference Range Interpretation [...] code = 8.7 mg/dL 8.0-10.5 N CA) [id number] 09:55:00 Test Item Value Reference Range Interpretation Comments PHOSPHOROUS (test code = PHOS) 5.2 MG/DL 2.5-4.9 H [id number] 09:55:00 Test Item Value Reference Range Interpretation Comments MAGNESIUM (test code = MAG) 1.89 mg/dL 1.80-2.40 N CBC W/AUTO [id number] 09:28:00 Test Item Value Reference Range Interpretation [...] REQUIRED (test code = MDIFF) CBC W/AUTO [id number] 09:28:00 Test Item Value Reference Range Interpretation [...] (test code NO = MDIFF) ACUTE HEPATITIS [id number] 13:08:00 Test Item Value Reference Range Interpretation [...] COMMENTS: At start of hemodialysisAB HEPATITIS B [id number] 13:08:00 Test Item Value Reference Range Interpretation Comments AB HEPATITIS B 22.1 mIU/mL See_Comment Status of Im munity SURFACE (test code = Anti-HB s Level HBSAB) --- I nconsis tent with Immun ity 0.0 - 9.9Consistent with Immunity >9.9Pe rformed At: HD [facility] [id number] [place], [place] [id number] Salomón Peralta MD Ph:[phone] [Automated mess age] The system [employer] generated this result transmitted ref erence range: Immunity >9.9. The reference r za was not used to interpret this result as normal/abnor mal. COMMENTS: At start of hemodialysisACUTE HEPATITIS [id number] 10:00:00 Test Item Value Reference Range Interpretation [...] COMMENTS: At start of hemodialysisAB HEPATITIS B [id number] 10:00:00 Test Item Value Reference Range Interpretation Comments AB HEPATITIS B SURFACE (test code = HBSAB) COMMENTS: At start of hemodialysisBASIC METABOLIC [id number] 09:23:00 Test Item Value Reference Range Interpretation [...] 8.5 mg/dL 8.0-10.5 N CA) CBC W/AUTO [id number] 09:16:00 Test Item Value Reference Range Interpretation [...] (test code NO = MDIFF) RENAL FUNCTION [id number] 06:58:00 Test Item Value Reference Range Interpretation [...] code = 3.0 MG/DL 2.5-4.9 N PHOS) [id number] 06:58:00 Test Item Value Reference Range Interpretation Comments MAGNESIUM (test code = MAG) 1.81 mg/dL 1.80-2.40 N CBC W/AUTO [id number] 06:49:00 Test Item Value Reference Range Interpretation [...] (test code NO = MDIFF) CBC W/AUTO [id number] 06:45:00 Test Item Value Reference Range Interpretation [...] code = MDIFF) - CT HEAD/BRAIN W/O [id number] 04:29:00 [facility] 1945 Sex: M Name: DARIEN GROSSMAN [facility] Kayenta : 1945 Age/S: 74 / M [address] [place] [address] Unit #: [id number] Loc:[place] [address] Phys: Fausto Espino MD Acct: [id number] Dis Date: Status: ADM IN PHONE #: [phone] Exam Date: 05/13/2020413 FAX #: [phone] Reason: TRAUMA EXAMS: CPT CODE: [id number] CT HEAD/BRAIN W/O CONT 02651 STUDY: - CT HEAD/BRAIN W/O CONT 05/13/2020 5:00 AM Ordering Physician: Fausto Espino MD Patient Name: DARIEN GROSSMAN MR: [id number] : 1945; Age: 74 years y/o Male Clinical Indication: Head trauma follow-up subdural hematoma. Comparison: CT brain 05/12/2020 at 2213 hours TECHNIQUE: Multiple contiguous transaxial noncontrast CT images were obtained through the head. Coronal and s agittal reformatted images were prepared. CT imaging performed [...] mm maximum thickness again seen extending into theleft tentorium measuring up to 2 mm maximum thickness. Stable minimal right to left midline shift estimated at 1.5 mm at the level of the septum pellucidum. No interval acute intracranial hemorrhage orinfarction. VENTRICLES: The lateral ventricles, third ventricle, fourth ventricle, and basilar cisterns are appropriate for degree of atrophy present. PARANASAL SINUSES: The visualized portions of the paranasal sinuses are clear. PAGE 1 Signed Report (CONTINUED) Name: DARIEN GROSSMAN [facility] Max Smith : 1945 Age/S: 74 / M [address] [place] [address] Unit #: [id number] Loc: [place] [address] Phys: Fausto Espino MD Acct: [id number] Dis Date: Status: ADM IN PHONE #: [phone] Exam Date: 05/13/2020413 FAX #: [phone] Reason: TRAUMA EXAMS: CPT CODE: [id number] CT HEAD/BRAIN W/O CONT 50764 <Continued> MASTOIDS: Clear. ORBITS: The globes are stable with an absent right lens. 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 SOFT TISSUES: No significant abnormality. SKULL: No acute fracture or suspicious osseous lesion. 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 Stable acute left parafalcine subdural hematom a extending into the left tentorium. Minimal left to right midline shift is stable. SL: TPAINTER-H at 0429 Reported and signed by: Anoop Mays M.D. CC: Fausto Espino MD; Bennett Farnsworth MD Technologist:Yasir Crain RT(R)(CT); Edgar CTDI: DLP: Trnscb Date/Time: 05/13/2020 (428) [email or web address] Orig Print D/T: S: 05/13/2020 (0432) PAGE 2 Signed Report- CT HEAD/BRAIN W/O [id number] 04:29:00[facility] : 1945 Sex: M Name: DARIEN GORSSMAN [facility] Kayenta : 1945 Age/S: 74 / M [address] [place], [place] [address] Unit #: [id number] Loc:[place] [address] Phys: Fausto Espino MD Acct: [id number] Dis Date: Status: DIS IN PHONE #: [phone] Exam Date: 05/13/2020 0414 FAX #: [phone] Reason: TRAUMA EXAMS: CPT CODE: [id number] CTHEAD/BRAIN W/O CONT 54267 STUDY: - CT HEAD/BRAIN W/O CONT 05/13/2020 5:00 AM Ordering Physician: Fausto Espino MD Patient Name: DARIEN GROSSMAN MR: [id number] : 1945; Age: 74 years y/o Male Clinical Indication: Head trauma follow-up subdural hematoma. Comparison: CT brain 05/12/2020 at 2213 hours TECHNIQUE: Multiple contiguous transaxial noncontrast CT images were obtained through the head. Coronal and sagittal reformatted images were prepared. CT imaging performed at this location utilizes radiationdose optimization techniques which include one or more of the following: -Automated exposure control-Adjustment of the mA and/or kV according to [...] thickness again seen extending into the left tentorium measuring up to 2 mm maximum thickness. [...] PAGE 1 Signed Report (CONTINUED) Name: DARIEN GROSSMAN [facility] :1945 Age/S: 74 / M [address] [place] [address] Blvd Unit #: [id number] Loc: [place] [address] Phys: Fausto Espino MD Acct: [id number] Dis Date: Status: DIS IN PHONE #: [phone] Exam Date: 05/13/2020413 FAX #: [phone] Reason: TRAUMA EXAMS: CPT CODE: [id number] CT HEAD/BRAIN W/O CONT 19667 <Continued> MASTOIDS: Clear. ORBITS: The globes are stable with an absent right lens. Stable smallold right medial orbital wall fracture versus congenital dehiscence. SOFT TISSUES: No significant abnormality. SKULL: No acute fracture or suspicious osseous lesion. 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 Stable acute left parafalcine subdural hematoma extending into the left tentorium. Minimal left to right midline shift is stable. SL: TPAINTER- H at 0429 Reported and signed by: Anoop Mays M.D. CC: Fausto Espino MD; Bennett Farnsworth MD Technologist:aYsir Crain, RT(R)(CT); Edgar CTDI: DLP: Trnscb Date/Time: 05/13/2020 (428) [email or web address] Orig Print D/T: S: 05/13/2020 (3459) PAGE 2 Signed ReportCOVID 19 Asymptomatic IH [id number] 03:09:00 Test Item Value Reference Range Interpretation [...] high or waivedcomplexit y tests. BASIC METABOLIC [id number] 02:14:00 Test Item Value Reference Range Interpretation [...] 8.5 mg/dL 8.0-10.5 N CA) HEPATIC FUNCTION [id number] 02:14:00 Test Item Value Reference Range Interpretation [...] 112 IUnit/L 20-125 N code = ALKP) [id number] 02:14:00 Test Item Value Reference Range Interpretation Comments LIPASE (test code = LIP) 185 U/L 13-57 H [id number] 02:14:00 Test Item Value Reference Range Interpretation Comments ALCOHOL (test < 3.0 mg/dL <10 N Ethyl Alcohol code = ALC) Interpretation: 100 mg/dL - Legally Intox icated 300-400 mg/dL - Severely Intoxicated &gt ;400 mg/dL - Potentially L ethalThe pharmacological response to blood alcoho l levels mayvary from in dividual to individual. Signs of intoxicationcan be observed at lev els of 50-100 mg/dL. R esults are for Medical pur poses only, and not f or Legal orEmployment ev aluation purposes. PROTHROMBIN [id number] 02:11:00 Test Item Value Reference Range Interpretation Comments PROTHROMBIN TIME 12.8 SECONDS 9.3-12.9 N PATIENT (test code = PTP) INTERNATIONAL NORMAL 1.2 0.8-1.2 N TARGET INR BY RATIO (test code = INDICATIO N Indication INR) INR1. Prophylax is of venous thrombos is 2.0 - 3.0 (orthoped ic surgery), Proph ylaxis of venous throm bosis (other than hig h-risk surgery), Treat ment of Deep Vein Thrombosis/Pulm onary Embolism, Preve ntion of systemic emb olism - Tissue heart va lves, Acute Myocardia l Infarction (to prevent systemic emboli sm), Valvular heart disease, Atrial Fibrillation, Bileaflet mecha nical valve in aortic position.2. Mec hanical prosthetic valv es (high risk), 2. 5 - 3.5 Presence of Lup us Anticoagulant o r Antiphospholipi d Antibodies, Pre vention of systemic emb olism - Acute Myocardia l Infarction (to prevent recurrent infar ct). THROMBOPLASTIN TIME [id number] 02:11:00 Test Item Value Reference Range Interpretation Comments THROMBOPLASTIN TIME 31.8 Seconds 25.0-39.5 N Therape utic Range: PARTIAL (test code = 50.4 - 88.3 Seconds PTT) Effective 05/27/2018 PROTHROMBIN [id number] 02:10:00 Test Item Value Reference Range Interpretation Comments PROTHROMBIN TIME 12.8 SECONDS 9.3-12.9 N PATIENT (test code = PTP) INTERNATIONAL NORMAL 1.2 0.8-1.2 N TARGET INR BY RATIO (test code = INDICATIO N Indication INR) INR1. Prophylax is of venous thrombos is 2.0 - 3.0 (orthoped ic surgery), Proph ylaxis of venous throm bosis (other than hig h-risk surgery), Treat ment of Deep Vein Thrombosis/Pulm onary Embolism, Preve ntion of systemic emb olism - Tissue heart va lves, Acute Myocardia l Infarction (to prevent systemic emboli sm), Valvular heart disease, Atrial Fibrillation, Bileaflet mecha nical valve in aortic position.2. Mec hanical prosthetic valv es (high risk), 2. 5 - 3.5 Presence of Lup us Anticoagulant o r Antiphospholipi d Antibodies, Pre vention of systemic emb olism - Acute Myocardia l Infarction (to prevent recurrent infar ct). THROMBOPLASTIN TIME [id number] 02:10:00 Test Item Value Reference Range Interpretation Comments THROMBOPLASTIN TIME PARTIAL (test Seconds 25.0-39.5 code = PTT) CBC W/AUTO [id number] 01:59:00 Test Item Value Reference Range Interpretation [...] NO = MDIFF) - CT HEAD/BRAIN W/O [id number] 23:15:00 [facility] : 1945 Sex: M Name: DARIEN GROSSMAN [facility] : 1945 Age/S: 74 / M [address] Unit #: [id number] Loc: [place] [address] Phys: Undefined Provider Acct: [id number] Dis Date: Status: REG REF PHONE #: [phone] Exam Date: 05/12/2020 8302 FAX #: Reason: s/p fall Report Has Been Amended EXAMS: CPT: [id number] CT HEAD/BRAIN W/O CONT 78872 Addendum - 05/12/2020 SIGNED 05/12/2020 ADDENDUM: [id number] CT/CTHDBRWO Findings were notified to housekeeping staff Huyen at 11:15 PM on 05/12/2020. at 6785 Reported and signed by: Kaela Lindsey M.D. Transcribed: 05/12/2020 (7527) Michael.[email or web address] Report EXAM: - CT HEAD/BRAIN W/O CONT LOCATION: H61 CLINICAL HISTORY/ INDICATION: Fall with pain TECHNIQUE: Helical CT acquisition of the head was obtained without IV contrast. Images were reconstructed in the axial, sagittal and coronal planes. This examination was performed according to our departmental dose optimization program, which includes automated exposure control, adjustment of the mA and/or kV according to patient size, and/or use of iterative reconstructiontechnique. COMPARISON: None FINDINGS: SULCI AND VENTRICLES: Appropriate for age. No hydrocephalus. PARENCHYMA: No CT evidence of acute large territorial infarct, parenchymal hemorrhage or mass effect.Beginning to confluent hypodensities in the periventricular and deep cerebral white matter are nonspecific, but are likely moderate chronic small vessel ischemic disease. EXTRA AXIAL SPACE: There is ahyperdense left parafalcine subdural hematoma which extends from the mid to posterior aspect of the interhemispheric fissure. The hematoma measures up to 7 mm in thickness. There is mild local mass effect on the medial left PAGE 1 Signed Report (CONTINUED) Name: DARIEN GROSSMAN : [birth year]Age/S: 74 / M [address] [facility] [place] Unit #: [id number] Loc: [place] [address] Phys: Undefined ProviderAcct: [id number] Dis Date: Status: REG REF PHONE #: [phone] Exam Date: 05/12/2020 0480 FAX #:Reason: s/p fall Report Has Been Amended EXAMS: CPT: [id number] CT HEAD/BRAIN W/O CONT 45204 (Continued) frontoparietal lobe without midline shift or transtentorial herniation. SCALP: No abnormalities. BONES: No skull fractures or aggressive calvarial lesions. PARTIALLY IMAGED FACE /PARANASAL SINUSES: Paranasal sinuses are clear. MASTOID AIR CELLS: No effusion. IMPRESSION: 1. Acute 7 mm left par afalcine subdural hematoma without midline shift or transtentorial herniation. 2. Moderate chronic small vessel ischemic disease. at 2251 Reported and signed by: Kaela Lindsey M.D. CC: Technologist:RT Sharon(R)(CT); ... CTDI: DLP: Trnscb Date/Time: 05/12/2020 (2250) [email or web address] Orig Print D/T: S: 05/12/2020 (2254) PAGE 2 Signed Report- CT HEAD/BRAIN W/O [id number] 23:15:00 [facility] : 1945 Sex: M Name: DARIEN GROSSMAN [facility] : 1945 Age/S: 74 / M [address] [facility] Unit #: [id number] Loc: [place] [address] Phys: Undefined Provider Acct: [id number] Dis Date: Status: REG REF PHONE #: [phone] Exam Date: 05/12/20202213 FAX #: Reason: s/p fall Report Has Been Amended EXAMS: CPT: [id number] CT HEAD/BRAIN W/O CONT 47594 Addendum - 05/12/2020 SIGNED 05/12/[address]: [id number]/CTHDBRWO Findings were notified to housekeeping staff Huyen at 11:15 PM on 05/12/2020. at 6670 Reported and signed by: Kaela Lindsey M.D. Transcribed: 05/12/2020 2314) [email or web address] Report EXAM: - CT HEAD/BRAIN W/O CONT LOCATION: H61 CLINICAL HISTORY/INDICATION: Fall with pain TECHNIQUE: Helical CT acquisition of the head was obtained without IV contrast. Images were reconstructed in the axial, sagittal and coronal planes. This examination was performed according to our departmental dose optimization program, which includes automated exposure con trol, adjustment of the mA and/or kV according to patient size, and/or use of iterative reconstruction technique. COMPARISON: None FINDINGS: SULCI AND VENTRICLES: Appropriate for age. No hydrocephalus.PARENCHYMA: No CT evidence of acute large territorial infarct, parenchymal hemorrhage or mass effect. Beginning to confluent hypodensities in the periventricular and deep cerebral white matter are nonspecific, but are likely moderate chronic small vessel ischemic disease. EXTRA AXIAL SPACE: There is ahyperdense left parafalcine subdural hematoma which extends from the mid to posterior aspect of the i nterhemispheric fissure. The hematoma measures up to 7 mm in thickness. There is mild local mass effect on the medial left PAGE 1 Signed Report (CONTINUED) Name: DARIEN GROSSMAN : 1945 Age/S: 74 / M [address] Unit #: [id number] Loc: [place] [address] Phys: Undefined Provider Acct: [id number] Dis Date: Status: REG REF PHONE #: [phone] Exam Date: 05/12/2020 7753 FAX #: Reason: s/p fall Report Has Been Amended EXAMS: CPT: [id number] CT HEAD/BRAIN W/O CONT 28913<Continued> frontoparietal lobe without midline shift or transtentorial herniation. SCALP: Noabnormalities. BONES: No skull fractures or aggressive calvarial [...] PAGE 2 Signed Report- CT HEAD/BRAIN W/O CONT 2020-05-12 22:51:00 [facility] : 1945 Sex: M Name: DARIEN GROSSMAN [facility] : 1945 Age/S: 74 / M [address] [facility] [place] Unit #: [id number] Loc: [place] [address] Phys: Undefined Provider Acct: [id number] Dis Date: Status: REG REF PHONE #: [phone] Exam Date: 05/12/20201 FAX #: Reason: s/p fall EXAMS: CPT: [id number] CT HEAD/BRAIN W/O CONT 03906 EXAM: - CT HEAD/BRAIN W/O CONT LOCATION: H61 CLINICAL HISTORY/INDICATION: Fall with pain TECHNIQUE: Helical CT acquisition of the head was obtained without IV contrast. Images were reconstructed in the axial, sagittal and coronal planes. This examination was performed according to our departmental dose optimization program, which includes automated exposure control, adjustment of the mA and/or kV according to patient size, and/or use of iterative reconstruction technique. COMPARISON: None FINDINGS: SULCI AND VENTRICLES: Appropriate for age. No hydrocephalus. PARENCHYMA: No CT evidence of acutelarge territorial infarct, parenchymal hemorrhage or mass effect. [...] PAGE 1 Signed Report (CONTINUED) Name: DARIEN GROSSMAN [facility] : 1945 Age/S: 74 / M [address] Unit #: [id number] Loc: [place] [address] Phys: Undefined Provider Acct: [id number] Dis Date: Status: REG REF PHONE #: [phone] Exam Date: 05/12/20202213 FAX #: Reason: s/p fall EXAMS: CPT: [id number] CT HEAD/BRAIN W/O CONT 35258 (Continued) at 225 Reported and signed by: Kaela Lindsey M.D. CC: Technologist:RT Sharon(R)(CT); ... CTDI: DLP: Trnscb Date/Time: 05/12/2020 (2250) [email or web address] Orig Print D/T: S: 05/12/2020 (2254) PAGE 2 Signed Report- CT C-SPINE W/O CONT 2020-05-12 22:40:00 [facility] : 1945 Sex: M Name: DARIEN GROSSMAN : 1945 Age/S: 74 / M [address] Unit #: [id number] Loc: [place] [address] Phys: Undefined Provider Acct: [id number] Dis Date: Status: REG REF PHONE #: [phone] Exam Date: 05/12/2020 5512 FAX #: Reason: s/p fall EXAMS: CPT: [id number] CT C-SPINE W/O CONT 18772 EXAM: - CT C-SPINE W/O CONT LOCATION: H61 CLINICAL HISTORY/INDICATION: Fall with pain. COMPARISON: None TECHNIQUE: Axial CT images were obtained of the cervical spine withoutintravenous contrast administration. These were reviewed in both soft tissue and bone algorithms. Coronal and sagittal reformats were obtained from the axial data. This examination was performed according to our departmental d ose optimization program, which includes automated exposure control, adjustment of the mA and/or kV according to patient size, and/or use of iterative reconstruction technique. FINDINGS: ALIGNMENT: Loss of normal cervical lordosis. Grade 1 degenerative anterolisthesis at C4-C5. 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 No craniocervical dissociation or fracture. VERTEBRAL BODIES: No compression fractures.FRACTURES: No acute fractures. REGIONAL SOFT TISSUES: Prevertebral and posterior paraspinal soft tissues are unremarkable. SPINAL CANAL: No gross epidural hematoma or mass. UPPER CHEST:Lung apices are clear. DEGENERATIVE CHANGES:Large bridging anterior endplate osteophytes from C2 to C4. Moderate discheight loss at C3-C4. Severe disc height loss at C4-C5, C5-C6, C6-C7 and C7-T1. Severe endplate sclerosis and subchondral cystic changes at C5-C6. C2-C3: Diffuse disc osteophyte complex, bilateral uncov ertebral arthrosis and severe right facet arthrosis result in moderate right neural foraminal stenosis, mild left neural foraminal stenosis, but no PAGE 1 Signed Report (CONTINUED) Name: [facility] 1945 Age/S: 74 / M [address] Unit #: [id number] Loc: [place], [place] [address]Ihem: Undefined Provider Acct: [id number] Dis Date: Status: REG REF PHONE #: [phone] Exam Date: 05/12/20202213 FAX #: Reason: s/p fall EXAMS: CPT: [id number] CT C-SPINE W/O CONT 59728 (Continued) spinal canal stenosis. C3-C4: Diffuse disc osteophyte [...] moderate right and mild left facet arthrosis. Constellation of findings result in severe bilateral neural foraminal [...] fracture or subluxation. 2. Severe multilevel facet arthropathy, disc degeneration and uncovertebral arthrosis results in severe multilevel foraminal stenosis, but no high-grade spinal canal stenosis. at 2240 Reported and signed by: Kaela Lindsey M.D. CC: Technologist:RT Sharon(Artie)(CT); ... CTDI: DLP: Trnscb Date/Time: 05/12/2020 (2239) [email or web address] OrigPrint D/T: S: 05/12/2020 (2510) PAGE 2 Signed Report- CT C-SPINE W/O [id number] 22:40:00 [facility] : 1945 Sex: M Name: DARIEN GROSSMAN [facility] : 1945 Age/S: 74 / M [address] Unit #: [id number] Loc: [place] [address] Phys: Undefined Provider Acct: [id number] Dis Date: Status: REG REF PHONE #: [phone] Exam Date: 05/12/20202213 FAX #: Reason: s/p fall EXAMS: CPT: [id number] CT C-SPINE W/O CONT 32729 EXAM: - CT C-SPINE W/O CONT LOCATION: H61 CLINICAL HISTORY/INDICATION: Fall with pain. COMPARISON:None TECHNIQUE: Axial CT images were obtained of the cervical spine withoutintravenous contrast administration. These were reviewed in both soft tissue and bone algorithms. Coronal and sagittal reformats were obtained from the axial data. This examination was performed according to our departmental dos e optimization program, which includes automated exposure control, adjustment of the mA and/or kV according to patient size, and/or use of iterative reconstruction technique. FINDINGS: ALIGNMENT: [place] normal cervical lordosis. Grade 1 degenerative anterolisthesis at C4-C5. CRANIOCERVICAL JUNCTION:There is fusion of the bilateral atlantooccipital articulation, [...] C3-C4. Severe disc height loss at C4-C5, C5-C6, C6-C7 and C7-T1. Severe endplate sclerosis and subchondral cystic changes at C5-C6. C2-C3: Diffuse disc osteophyte complex, bilateral uncovertebral arthrosis and severe right facet arthrosis result in moderate right neural foraminal stenosis, mild left neural foraminal stenosis, but no PAGE 1 Signed Report (CONTINUED) Name: [facility] 1945 Age/S: 74 / M [address] Unit #: [id number] Loc: [place], [place] [address]Aunp: Undefined Provider Acct: [id number] Dis Date: Status: REG REF PHONE #: [phone] Exam Date: 05/12/20202213 FAX #: Reason: s/p fall EXAMS: CPT: [id number] CT C-SPINE W/O CONT 22501 <Continued> spinal canal stenosis. C3-C4: Diffuse disc osteophyte complex and bilateral uncovertebral a rthrosis results in severe bilateral neural foraminal stenosis [...] bilateral uncovertebral arthrosis, moderate right and mild leftfacet arthrosis. Constellation of findings result in severe bilateral neural foraminal [...] fracture or subluxation. 2. Severe multilevel facet arthropathy, disc degeneration and uncovertebral arthrosis results in severe multilevel foraminal stenosis, but no high-grade spinal canal stenosis. at 2240 Reported and signed by: Kaela Linsdey M.D. CC: Technologist:RT Sharon(R)(CT); ... CTDI: DLP: Trnscb Date/Time: 05/12/2020 (2239) [email or web address] Orig Print D/T: S: 05/12/2020 (4789) PAGE 2 Signed ReportAFB [id number] 05:13:59 Test Item Value Reference Range Interpretation Comments AFB culture isolate No growth after 6 (test code = 543-9) weeks of incubation. [facility] [id number] 06:15:49 Test Item Value Reference Range Interpretation Comments Fungus culture isolate No growth after 4 (test code = 1441) weeks of incubation. [facility] 1 [id number] 21:39:42EXAMINATION: OR FL < 1 HOUR C-arm [...] PM CST EXAMINATION: OR FL < 1 HOURC-arm fluoroscopy was requested in OR. OPC19 OR ROOM: 10 PROCEDURE: RIGHT ABOVE THE KNEE AMPUTATION START TIME: 1245 END TIME: 1330 FLUORO TIME: 1second DOSAGE: 0.134mGy TECH: jmIMPRESSION:Intraoperative fluoroscopic images. Radiologist was not present during the examination.Separate operative report will be issued by the physician performing theprocedure.[id number] HospitalAnaerobic [id number] 14:47:42 Test Item Value Reference Range Interpretation Comments Anaerobic culture No anaerobic organisms isolate (test code = isolated. 552) [facility] odjwe0631-06-89 07:48:01 Test Item Value Reference Range Interpretation Comments AFB stain (test code = No acid fast bacilli 676-7) (AFB) seen. [facility] ieirtws7746-10-58 07:48:01 Test Item Value Reference Range Interpretation Comments Aerobic culture isolate No growth after 3 (test code = 498) days. [facility] [id number] 07:48:01 Test Item Value Reference Range Interpretation Comments Fungus smear (test code = No fungi observed. 1443) [facility] [id number] 07:48:01Gram stain isolateFew WBC'sNo organisms seen Comment: Specimen InformationSpecimen Source: TissueSpecimen Site: Femur: Right femoral canal tissue [facility] [id number] 21:19:54 Test Item Value Reference Range Interpretation Comments Case number (test code = [id number]) Surgical pathology See link below for report (test code = PDF Lab Report 2255) Result status (test code This is Final Report = [id number]) for [id number] [facility] carotid bytiim6353-51-29 00:39:00 Vascular Ultrasound Laboratory Carotid Artery Duplex Report [address] [place] [address] For quality engineer medical device purposes, the categorization of the degree of the stenosis of this exam is based on criteria described in the IAC carotid stenosis grading white paper( www.intersocietal.org/Vascular) and Shagufta Andrews., Ritu Armendariz., et al. Carotid artery stenosis: maya-scale and Doppler US diagnosis--Society of Radiologists in Ultrasound Consensus Conference. Radiology. 2003 Nov; 229(2):340-6. Pat.Name: DARIEN GROSSMANNess Pat.ID: [id number] .Date: 03/23/2020 Refer.MD: BEAR MARIEE MD Exam Time: 11:25:00 AM Study Type:Carotid Height: 68in Weight: 186lb BSA: 1.98 m2 Age: 9 1945,74Y Sex: MALE Sonogrphr: NOEMI Chapman Pat. Stat.:Inpatient Room: [address] Vol: BE, CPT - 4:07976 Echo Event ID:[id number] Order ID: [id number] Reason for Study:Cervical bruit, no prior carotidartery assessment.History of anemia, ESRD and left arm dialysis. Procedures: Colorflow, Grayscale/2D, Pulsed wave DopplerRace: C SUMMARY: -------PHYSICAL ASSESSMENT Blood Pulses Carotid Pressure Carotid Temporal BruitRight 117/55 Left AV fistula CAROTID ARTERY SCANRIGHT: There is scattered hard plaque with intimal thickening in thecommoncarotid artery. There is hard and calcified plaque [...] AVF.6. Bilateral vertebral arteries with antegrade flow. FINDINGS: ------Carotid Findings: Right Left Verteb.Flw Antegrade Antegrade Subclavian [...] 26 cm/s Vertebral EDV 14 cm/s Vertebral PSV53 cm/s Right Subclavian Subclavian PSV 172 cm/s Subclavian EDV 22 cm/sLeft CCA Dist CCA Dist PSV 118 cm/s Left CCA Mid CCA Mid PSV 110 cm/s Left ECA Prox ECA Prox PSV 158 cm/s ECA Prox EDV 23 cm/sLeftICA Mid ICA Mid PSV 124 cm/s Left [...] Liang MD, RPVIInterce, Radiology Results In - 03/23/2020 6:40 PM CST Vascular Ultrasound Laboratory Carotid Artery Duplex Report [address] [place] [address] For quality engineer medical device purposes, the categorization of the degree of the stenosis of this exam is based on criteria d escribed in the IAC carotid stenosis grading white paper( www.intersocietal.org/Vascular) and Madie Andrews, Oz Armendariz, et al. Carotid artery stenosis: maya-scale and Doppler US diagnosis--Society of Radiologists in Ultrasound Consensus Conference. Radiology. 2003 Nov; 229(2):340-6. Pat.Name: DARIEN GROSSMAN Pat.ID: [id number] .Date: 03/23/2020 Refer.MD: BEAR MARIEE MD Exam Time: 11:25:00 AM Study Type:Carotid Height: 68in Weight: 186lb BSA: 1.98 m2 Age: 9 1945,74Y Sex: MALE Sonogrphr: NOEMI Chapman Pat. Stat.:Inpatient Room: [address] Vol: BE, CPT - 4: 97963 Echo Event ID:[id number] Order ID: [id number] Reason for Study:Cervical bruit, no prior carotid [...] noted in the vertebral artery. The leftsubclavian arteryis patent with disturbed Doppler signals consistentwith a [...] AVF.6. Bilateral vertebral arteries with antegrade flow. FINDINGS: Carotid Findings: Right Left Verteb.Flw Antegrade Antegrade Subclavian Triphasic Disturbed JESSICA UREMENTS: DOPPLERRight CCA Dist CCA Dist PSV 116 cm/s CCA Dist CCA Dist EDV [...] ECA Prox ECA Prox EDV 20 cm/s RightICA Dist ICA Dist PSV 100 cm/s ICA [...] SCA Prox SCA Prox PSV 312 cm/s SCAProx EDV 66 cm/sRight ICA/CCA Ratio ICA/CCA PSV 1.67 Left ICA/CCA Ratio ICA/CCA PSV 1.14 Signed 03/23/2020 06:39 PMAngel Liang MD, [facility]2021-02-09 19:25:28Tejal Simpson 03/22/2020 1:45 PMAirway Date/Time: 03/22/2020 1:00 PM Location: OR Performed by: YEAST PUSHER/A AAnesthesiologist: Tahmina Mccloud/YEAST PUSHER/AA: Angeles Simpsonhorized by: Liu Mccloud Urgency: ElectiveDifficult Airway: No Preoxygenated with 100% O2: Yes C-spine Precautions Maintained Throughout: Yes Mask Ventilation: Easy maskFinal Airway Type: Endotracheal airwayFinal Endotracheal Airway: ETTCuffed: Yes Technique Used: Video laryngoscopyDevices/Methods Used in Placement: Intubating styletInsertion Site: OralLaryngoscope Blade/Videolaryngoscope Blade Size: 3ETT Size (mm): 8.0Cuff at minimum occlusion pressure: Yes Measured from: GumsETT to Gums (cm): 22Placement Verified by: CO2 detection, direct visualization and equal breath sounds Laryngoscopic view: Grade I - full view of glottisRapid Sequence Induction (RSI): No Modified RSI: No Number of Attempts at Approach: 3 or more First attemptusing Sheikh 2 blade by YEAST PUSHER. Second attempt with MD with MAC 3. Grade 3b view, secondary to neck stiffness.Grade 1 view with glidescope. ETT passed atraumatically.Transthoracic Echocardiogram Complete, (w Contrast, Strain and 3D if needed)2020-03-19 20:20:00 Echocardiography Report [id number]Name: DARIEN GROSSMAN Pat.ID: [id number] .Date: 03/19/2020 Refer.MD: CLINT KING DO Exam Time: 11:43:00 AM Study Type:Routine Echo Height: 68in Weight: 185.61lb BSA: 1.98 m2 Age: 9 1945,74Y Sex: MALE BP: 110/57 HR: 70 bpm Sonogrphr: NILSON Conde Pat. Stat.:Inpatient Room: [facility] Study Status:Final Echo Event ID:[id number] Order ID: [id number] Reason for Study:Perioperative function eval without cardiac [...] estimate PA systolic pressure. MEASUREMENTS: 2DParasternal Long [place] Ao An 2.2 cm LVPWd 1.3 cm Ao Rtd 3.4 cm Index 1.7 cm/m2 LA Ds 4.1 cm IVSd 1.3 cm RWT 0.5 LVIDd 5.1 cm Index 2.6 cm/m2 LV Mass 270.1 g (122-174) LVIDs 2.9 cm LVM Index 136.4 g/m2 LV%fs 43.1 % LVOT 2.2 cm LA Sng Plane LA Area 27.1 cm2 (8.8-23.4) LA Vol 79.4 mlIndex 40.1 ml/m2 LA LngAx 7.6 cm RA Sng Plane RA Vol 77.8 ml Index 39.3 ml/m2 RA LngAx 7.1 cm RA Area 25 cm2 (8.3-19.5)LVOT LVOT Area 3.9 cm2 DOPPLERLVOT Stroke Vol & Cardiac Out LVOT TVI 26.6 cmHR 71 bpm LVOT LVOT SV 103.8 ml LVOT CO 7.4 l/min SVi 52.4 ml/m2 LVOT CI 3.7 l/m/m2 Signed 03/19/2020 02:20 PMSrajan Sarabia M.D.Interface, Radiology Results In - 03/19/2020 2:20 PM CST Echocardiography Report [address] [place] [address] Pat.Name: DARIEN GROSSMAN Pat.ID: [id number] .Date: 03/19/2020 Refer.MD: CLINT KING DO Exam Time: 11:43:00 AM Study Type:Routine Echo Height: 68in Weight: 185.61lb BSA: 1.98 m2 Age: 9 1945,74Y Sex: MALE BP: 110/57 HR: 70 bpm Sonogrphr: NILSON Conde Pat. Stat.:Inpatient Room: [facility] Study Status:Final Echo Event ID:[id number] Order ID: [id number] Reason for Study:Perioperative function eval without cardiac evidenceHistory / Clinical:Hypertension, Heart DiseaseProcedures: 2D Echo, Colorflow Doppler, 3D Echo, Strain, Portable,Intravenous Optison ContrastRace: C SUMMARY: There is mild concentric LV hypertrophy. LV EF is normal. Overallwall motion is normal.Diastolic dysfunction Grade I(Mild): Impaired relaxation with normalLV filling pressures. FINDI NGS: LV: LV size is normal. There is [...] estimate PA systolic pressure. MEASUREMENTS: 2DParasternal Long [place] Ao An 2.2 cm LVPWd 1.3 cm Ao Rtd 3.4 cm Index 1.7 cm/m2 LA Ds 4.1 cm IVSd 1.3 cm RWT 0.5 LVIDd 5.1 cm Index 2.6 cm/m2 LV Mass 270.1 g (122-174) LVIDs 2.9 cm LVM Index 136.4 g/m2 LV%fs 43.1 % LVOT 2.2 cm LA SngPlane LA Area 27.1 cm2 (8.8-23.4) LA Vol 79.4 ml Index 40.1 ml/m2 LA LngAx 7.6 cm RA Sng Plane RA Vol 77.8 ml Index 39.3 ml/m2 RA LngAx 7.1 cm RA Area 25 cm2 (8.3- 19.5)LVOT LVOT Area 3.9 cm2 DOPPLERLVOT Stroke Vol & Cardiac Out LVOT TVI 26.6 cm HR 71 bpm LVOT LVOT SV 103.8 ml LVOT CO 7.4 l/min SVi52.4 ml/m2 LVOT CI 3.7 l/m/m2 Signed 03/19/2020 02:20 Dodie Sarabia M.D.[facility] MRI Lower Extremity Wo Contrast [id number] 13:07:30EXAMINATION: MRI LOWER EXTREMITY WO CONTRAST RIGHT CLINICAL HISTORY: chronic infection possible osteo tib-fib TECHNIQUE: Multiplanar multisequence MR imaging of the right lower extremity was performed without contrast. COMPARISON: None. IMPRESSION: Evaluation limited due to lack of intravenous contrast. Patient is status post right knee arthroplasty. [...] the tibial component, and there is concern forhardware infection. Lucency is seen around the hardware, [...] component is seen medially, beyond the cortex ofthe tibia. [id number] Interface, Radiology Results Incoming - 03/19/2020 7:14 AM CSTFormatting ofthis note might be different from the original.EXAMINATION: MRI LOWER EXTREMITY WO CONTRAST RIGHTCLINICAL HISTORY: chronic infection possible osteo tib-fibTECHNIQUE: Multiplanar multisequence MR imaging of the right lower extremity was performed without contrast.COMPARISON: None.IMPRESSION:Evaluation limited due to lack of intravenous contrast.Patient is status post right knee arthroplasty. Migrationof the tibial component laterally, beyond the cortex [...] anteriorly that extends along the cortex of thetibia and communicates with the tibial component. 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 Migration of the tibial component is seen medially, beyond the cortex of the tibia.[id number] THIGH WO CONTRAST LDPKE1960-81-98 12:29:55EXAMINATION: MRI KNEE WO CONTRAST RIGHT, MRI THIGH WO CONTRAST RIGHT CLINICAL HISTORY: Infection TECHNIQUE: Multiplanar multisequence MR imaging of the right knee and thigh was performed without contrast. COMPARISON: Radiographs performed on 03/18/2020. 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 Susceptibility artifact from the hardware limits evaluation. There is fluid and osteolysis surrounding the stems of both the femoral and tibial com ponents. There is a defect in the cortex [...] with the fluid surrounding the tibial stem. [id number] Interface, Radiology Results - 03/19/2020 6:33 AM CST EXAMINATION: MRI KNEE WO CONTRAST RIGHT, MRI THIGH WO CONTRAST RIG HTCLINICAL HISTORY: InfectionTECHNIQUE: Multiplanar multisequence MR imaging of the right knee and thigh was performed without contrast.COMPARISON: Radiographs [...] communicate with the fluid surrounding the tibial stem.[id number]-[id number] [facility] Knee Right Wo Himfdilw6870-02-19 12:29:55EXAMINATION: MRI KNEE WO CONTRAST RIGHT, MRI THIGH WO CONTRAST RIGHT CLINICAL HISTORY: Infection TECH NIQUE: Multiplanar multisequence MR imaging of the right knee and thigh was performed without contrast. COMPARISON: Radiographs performed on 03/18/2020. 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 Susceptibility artifact from the hardware limits evaluation. There is fluid and osteolysis surrounding [...] with the fluid surrounding the tibial stem. [facility]-SWPBEZ2Zb Interface, Radiology Results Incoming - 03/19/2020 6:33 AM CST EXAMINATION: MRI KNEE WO CONTRAST RIGHT, MRI THIGH WO CONTRAST RIGHTCLINICAL HISTORY: InfectionTECHNIQUE: Multiplanar multisequence MR imaging of the right knee and thigh was performed without contrast.COMPARISON: Radiographs performed on 03/18/2020.FINDINGS:There aresurgical changes related to placement of a constrained right total knee arthroplasty. Susceptibilityartifact from the hardware limits evaluation.There is fluid and osteolysis surrounding the stems of both the femoral and tibial components. There is a defect in the cortex of the posterolateral aspect of the proximal tibial shaft adjacent to the tibial stem. Additionally, there is a 3.2 x 1.3 x 2.6 cmsoft tissue fluid collection located anterior to the proximal tibial shaft, this collection tracks along the tibia and communicates with this cortical defect.No other soft tissue fluid collection is identified. There is no soft tissue mass. There is no knee joint effusion. 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 Additionally, there is a 3.2 x 1.3 x 2.6 cm soft tissueabscess located anterior to the proximal tibial shaft that appears to communicate with the fluid surr ounding the tibial stem.[facility]-[id number] [facility] HospitalUrine ymouvcs5930-20-01 23:38:48 Test Item Value Reference Range Interpretation Comments Urine culture (test code = SEE COMMENT [id number]) [facility] Knee 1 Or 2 Vw [id number] 23:14:12EXAMINATION: XR KNEE 1 OR 2 VW RIGHT CLINICAL HISTORY: PAin and swelling COMPARISON: None IMPRESSION: There is a large zone of lucency around the stems of the femoral and tibial components of the totalknee replacement, consistent with loosening. Infection cannot be excluded. There is a joint effusionpresent. There is no acute fracture or dislocation. There are vascular calcifications. [facility]-[id number] Interface, Radiology Results Incoming - 03/18/2020 5:17 PM CST EXAMINATION: XR KNEE 1 OR 2 VW RIGHTCLINICAL HISTORY: PAin and swellingCOMPARISON: NoneIMPRESSION:There is a large zone of lucency 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 Infection cannot be excluded. There is a joint effusion present. There is no acute fracture or dislocation. There are vascular calcifications.[id number] HospitalXR Tibia Fibula 2 Vw Rlcqg2471-26-14 23:06:16EXAMINATION: XR TIBIA FIBULA 2 VW RIGHT CLINICAL HISTORY: L leg cellulitis COMPARISON: None IMPRESSION: There is evidence of loosening of tibial component of knee prosthesis, with large zone of lucency around the stem. Infection cannot be excluded. Bones are osteopenic. No definite acute fracture is seen. [id number] Interface, Radiology Results 03/18/2020 5:09 PM CST EXAMINATION: XR TIBIA FIBULA 2 VW RIGHTCLINICAL HISTORY: L leg cellulitisCOMPARISON: NoneIMPRESSION:There is evidence of loosening of tibial component of kneeprosthesis, with large zone of lucency around the stem. Infection cannot be excluded. Bones are osteopenic. No definite acute fracture is seen.[facility]-[id number] Regional Medical Center [id number] 02:22:00 Test Item Value Reference Range Interpretation Comments TROPONIN I (test <0.012 See_Comment [Automated code = 5284507251) message] The system which generated this result [...] ? Lab Interpretation Normal (test code = 95449-3) [facility] [id number] 02:20:00 Test Item Value Reference Range Interpretation Comments TROPONIN I (test <0.012 See_Comment [Automated code = 7267073663) message] The system which generated this result [...] ? Lab Interpretation Normal (test code = 38283-7) [facility]2020[facility] 00[facility]21:00 Test Item Value Reference Range Interpretation Comments APPEARANCE (test code = Clear Clear 2885159372) COLOR (test code = Yellow Yellow 7946367370) PH (test code = 4.8-8.0 9060834075) SP GRAVITY (test code = 1.003-1.030 4667600256) GLU U QUAL (test code = Normal Normal 1783384169) BLOOD (test code = Negative Negative 6047293546) KETONES (test code = Negative Negative 3100985886) PROTEIN (test code = 100 mg/dL Negative A 2887-8) UROBILIN (test code = Normal Normal 8570836689) BILIRUBIN (test code = Negative Negative 9588465935) NITRITE (test code = Negative Negative 8611924501) LEUK AJ (test code = Negative Negative 0937554503) RBC/HPF (test code = See_Comment H [Autom ated message] 9130955917) The system [employer] generated this result transmit amado reference range : 0 - 3 HPF. The refe rence range was not u sed to interpret th is result as normal/abnormal . WBC/HPF (test code = <1 See_Comment [Autom ated message] 9331559143) The system [employer] generated this result transmit amado reference range : 0 - 5 HPF. The refe rence range was not u sed to interpret th is result as normal/abnormal . BACTERIA (test code = Few Negative A 5419157504) MUCOUS (test code = Slight Negative LPF A 6695255996) SQ EPITH (test code = <1 HPF 1110531763) Lab Interpretation (test Abnormal code = 41920-5) [facility]2020-[facility] 00:21:00 Test Item Value Reference Range Interpretation Comments APPEARANCE (test code = Clear Clear 1357442226) COLOR (test code = Yellow Yellow 5674209953) PH (test code = 4.8-8.0 8247500644) SP GRAVITY (test code = 1.003-1.030 4761515267) GLU U QUAL (test code = Normal Normal 2879173568) BLOOD (test code = Negative Negative 4251953586) KETONES (test code = Negative Negative 5292297293) PROTEIN (test code = 100 mg/dL Negative A 2887-8) UROBILIN (test code = Normal Normal 1765024837) BILIRUBIN (test code = Negative Negative 5389282136) NITRITE (test code = Negative Negative 8124770548) LEUK AJ (test code = Negative Negative 3919770579) RBC/HPF (test code = See_Comment H [Autom ated message] 1135055987) The system [employer] generated this result transmit amado reference range : 0 - 3 HPF. The refe rence range was not u sed to interpret th is result as normal/abnormal . WBC/HPF (test code = <1 See_Comment [Autom ated message] 5050448962) The system [employer] generated this result transmit amado reference range : 0 - 5 HPF. The refe rence range was not u sed to interpret th is result as normal/abnormal . BACTERIA (test code = Few Negative A 1597336014) MUCOUS (test code = Slight Negative LPF A 7473479617) SQ EPITH (test code = <1 HPF 8859424148) Lab Interpretation (test Abnormal code = 20554-4) [facility]XR CHEST 1 [id number] 23:24:26 No acute cardiopulmonary abnormality. Preliminary Report Dictated by Resident: Kavita Eden MD., have reviewed this study and agree with theabove report.EXAM: XR CHEST 1 VW HISTORY: palpitations COMPARISON: None Technique: ?AP view radiograph [...] consolidation, pleural effusion orpneumothorax is seen. The card iac silhouette is normal in size.No acute bony abnormality.IMPRESSIONNo acute cardiopulmonary abnormality.Preliminary Report Dictated by Resident: Kavita Bradshaw MD., have reviewed this study and agree with theabove report.[facility] CHEST 1 [id number] 23:24:26 No acute cardiopulmonary abnormality. Preliminary Report Dictated by Resident: Kavita Eden MD., have reviewed this study and agree with theabove report.EXAM: XR CHEST 1 VW HISTORY: palpitations COMPARISON: None Technique: ?AP view radiograph of the chest FINDINGS: The lungs are clear. No focal consolidation, pleural effusion orpneumothorax is seen. The cardiac silhouette is normal in size. No acute bony abnormality. [facility], Radiant Results Inft User - 11/11/2019 6:25 PM CDTEXAM: XR CHEST 1 VWHISTORY: palpitations COMPARISON: NoneTechnique: AP view radiograph of the chestFI NDINGS:The lungs are clear. No focal consolidation, pleural effusion orpneumothorax is seen. The cardiac silhouette is normal in size.No acute bony abnormality.IMPRESSIONNo acute cardiopulmonary abnormality.Preliminary Report Dictated by Resident: Kavita Bradshaw MD., have reviewed this study and agree with theabove report.[facility] COMP. METABOLIC PANEL ([id number])2019-11-11 23:16:00 Test Item Value Reference Range Interpretation Comments NA (test code = 137 mmol/L 135-145 4443337649) K (test code = 4.0 mmol/L 3.5-5 3464925161) CL (test code = 94 mmol/L 98-108 L 1575546228) CO2 TOTAL (test code = 29 mmol/L 23-31 1943986843) AGAP (test code = 2-16 2912291408) BUN (test code = 63 mg/dL 7-23 H 0315587711) GLUCOSE (test code = 142 mg/dL 70-110 H 8693684730) CREATININE (test code = 5.82 mg/dL 0.6-1.25 H 6330612515) TOTAL BILI (test code = 0.4 mg/dL 0.1-1.2 4204873718) CALCIUM (test code = 9.8 mg/dL 8.6-10.6 5495729992) T PROTEIN (test code = 7.5 g/dL 6.3-8.2 5234287277) ALBUMIN (test code = 4.2 g/dL 3.5-5 1895118774) ALK PHOS (test code = 100 U/L 34-122 1958441865) ALTv (test code = 14 U/L 5-50 1742-6) AST(SGOT) (test code = 27 U/L 13-40 2749073824) eGFR Calculation mL/min/1.73m2 (Non-) (test code = 2531518613) eGFR Calculation mL/min/1.73m2 () (test code = 0900920653) JACQUELYN (test code = JACQUELYN) Association of [...] tests). Lab Interpretation Abnormal (test code = 17514-5) [facility]MAGN[facility]IUM2020-09-30 23:16:00 Test Item Value Reference Range Interpretation Comments MAGNESIUM (test code = 6817832661) 2.5 mg/dL 1.7-2.4 H Lab Interpretation (test code = Abnormal 94016-1) [facility] HospitalCOM. METABOLIC PANEL ([id number])2019-11-11 23:16:00 Test Item Value Reference Range Interpretation Comments NA (test code = 137 mmol/L 135-145 0698252381) K (test code = 4.0 mmol/L 3.5-5 5221900896) CL (test code = 94 mmol/L 98-108 L 9384858780) CO2 TOTAL (test code = 29 mmol/L 23-31 8614146833) AGAP (test code = 2-16 4992236444) BUN (test code = 63 mg/dL 7-23 H 6106005833) GLUCOSE (test code = 142 mg/dL 70-110 H 7988144828) CREATININE (test code = 5.82 mg/dL 0.6-1.25 H 9290147353) TOTAL BILI (test code = 0.4 mg/dL 0.1-1.7 5120235273) CALCIUM (test code = 9.8 mg/dL 8.6-10.6 6785634236) T PROTEIN (test code = 7.5 g/dL 6.3-8.2 3540863978) ALBUMIN (test code = 4.2 g/dL 3.5-5 3046828817) ALK PHOS (test code = 100 U/L 34-122 0265162831) ALTv (test code = 14 U/L 5-50 1742-6) AST(SGOT) (test code = 27 U/L 13-40 8989780431) eGFR Calculation mL/min/1.73m2 (Non-) (test code = 7887594105) eGFR Calculation mL/min/1.73m2 () (test code = 5346085383) JACQUELYN (test code = JACQUELYN) Association of [...] tests). Lab Interpretation Abnormal (test code = 75666-8) [facility]2020-09-30 23:16:00 Test Item Value Reference Range Interpretation Comments MAGNESIUM (test code = 4374512907) 2.5 mg/dL 1.7-2.4 H Lab Interpretation (test code = Abnormal 34235-8) [facility] WITH [id number] 22:53:00 Test Item Value Reference Range Interpretation Comments WBC (test code = See_Comment [Automated 6690-2) message] The sy stem which generated this result transmitted reference range : 4.20 - 10.70 10*3/?L. The reference range was not used to interpret this result as normal/abnormal . RBC (test code = See_Comment L [Automated 259-8) message] The sy stem which generated this [...] RDW-SD (test code = 46.1 fL 38.5-51.6 30744-2) RDW-CV (test code = 13.9 % 12.1-15.4 788-0) PLT (test code = See_Comment [Automated 777-3) message] The sy stem which generated this result transmitted reference range : 150 - 328 10*3/ ?L. The reference r za was not used to interpret this result as normal/abnormal . MPV (test code = 8.7 fL 9.8-13 L 39339-4) NRBC/100 WBC (test See_Comment [Automat ed code = 9960076335) message] The system which generated this result transmitted reference range : 0.0 - 10.0 /100 WBCs. The refer ence range was not u sed to interpret th is result as normal/abnormal . NRBC x10^3 (test code <0.01 See_Comment [Auto mated = 2379996351) message] The s ystem which generated this result transmitted reference range : 10*3/?L. The reference range was not used to interpret this result as normal/abnormal . GRAN MAT (NEUT) % 79.0 % (test code = 770-8) IMM GRAN % (test code 0.50 % = 8733491673) LYMPH % (test code = 7.3 % 736-9) MONO % (test code = 9.1 % 5905-5) EOS % (test code = 3.8 % 713-8) BASO % (test code = 0.3 % 706-2) GRAN MAT x10^3(ANC) 6.93 10*3/uL 1.99-6.95 (test code = 2110227154) IMM GRAN x10^3 (test 0.04 10*3/uL 0-0.06 code = 0022935609) LYMPH x10^3 (test code 0.64 10*3/uL 1.09-3.23 L = 731-0) MONO x10^3 (test code 0.80 10*3/uL 0.36-1.02 = 742-7) EOS x10^3 (test code = 0.33 10*3/uL 0.06-0.53 711-2) BASO x10^3 (test code 0.03 10*3/uL 0.01-0.09 = 704-7) Lab Interpretation Abnormal (test code = 26966-3) [facility] WITH DQKJ4353-01-10 22:53:00 Test Item Value Reference Range Interpretation [...] RDW-SD (test code = 46.1 fL 38.5-51.6 11730-5) RDW-CV (test code = 13.9 % 12.1-15.4 788-0) PLT (test code = See_Comment [Automated 777-3) message] The sy stem which generated this result transmitted reference range : 150 - 328 10*3/ ?L. The reference r za was not used to interpret this result as normal/abnormal . MPV (test code = 8.7 fL 9.8-13 L 54466-5) NRBC/100 WBC (test See_Comment [Automat ed code = 6496350096) message] The system which generated this result transmitted reference range : 0.0 - 10.0 /100 WBCs. The refer ence range was not u sed to interpret th is result as normal/abnormal . NRBC x10^3 (test code <0.01 See_Comment [Auto mated = 0725807320) message] The s ystem which generated this result transmitted reference range : 10*3/?L. The reference range was not used to interpret this result as normal/abnormal . GRAN MAT (NEUT) % 79.0 % (test code = 770-8) IMM GRAN % (test code 0.50 % = 1158291947) LYMPH % (test code = 7.3 % 736-9) MONO % (test code = 9.1 % 5905-5) EOS % (test code = 3.8 % 713-8) BASO % (test code = 0.3 % 706-2) GRAN MAT x10^3(ANC) 6.93 10*3/uL 1.99-6.95 (test code = 5356132223) IMM GRAN x10^3 (test 0.04 10*3/uL 0-0.06 code = 0304214744) LYMPH x10^3 (test code 0.64 10*3/uL 1.09-3.23 L = 731-0) MONO x10^3 (test code 0.80 10*3/uL 0.36-1.02 = 742-7) EOS x10^3 (test code = 0.33 10*3/uL 0.06-0.53 711-2) BASO x10^3 (test code 0.03 10*3/uL 0.01-0.09 = 704-7) Lab Interpretation Abnormal (test code = 70261-8) [facility] 2017-01-25 19:47:00FINAL REPORT CLINICAL HISTORY: Trauma and pain COMPARISON: None. Correlation ismade with a right hip series performed on [...] neoplasm. Correlation is recommended. Signed: Jorge Kumar MDRmarianela Verified Date/Time: 01/25/2017 19:47:23 Reading Location: [address] Reading Room RAD, HIP, 2 VIEWS, RIGHT 2017-01-25 19:11:00Reason for exam:->FALLReason for exam:->HIP PAINShould this be performed at the bedside?->NoFINAL REPORT CLINICAL HISTORY: Trauma and pain COMPARISON: None. FINDINGS: Frontal view of the pelvis and a lateral view of the right hip are submitted. There is no acute fracture,malalignment or destructive bony lesion. Surgical clips overlie the right lower abdomen. Signed: Jorge Kumar Verified Date/Time: 01/25/2017 19:11:49 [address] 2014-02-18 16:35:00 Test Item Value Reference Range Interpretation Comments BUN/CREAT (test code = BUN/CREAT) 12 1 6-25 [facility] SdxovjgNcfqronvs8308-43-41 16:35:004.2[facility] 2014-02-18 16:35:008.9[facility] RkskpobAmiemvrhn8828-59-34 16:35:0036[facility] OatekocJpbhpmayg1737-68-63 16:35:0025[facility] NfnateoVhfbqftgr0337-15-87 16:35:66176Pkarzdes PjadoftSlaazujmh0241-04-84 16:35:001.380[facility] Gbtoveqlu8780-34-52 16:35:002.00[facility] PpsqikdGqpcfrhmej6821-48-65 16:35:00 13.9[facility] MzxjpykFiujhlcbht0779-05-39 16:35:0041.4[facility]annHematology 2014-02-18 16:35:70981 K/CMMMemorial YjziaomJgjyibiy9348-37-81 16:35:00Non ReactiveMemorial InoktzdQootpqfrf4734-08-20 16:35:94740Viojgrko [facility]annChemistry 2014-02-18 16:35:77223Meojbqga RsjxlxiUjolmnjqc7865-59-10 16:35:0032[facility] OgsoxrhYvmnytpna7103-47-51 16:35:75952Mwkcoavf NefruihSipwjiags0693-45-88 16:35:85687 MEQ/LMemorial JuvtpgtSqcazikws4811-28-37 16:35:004.3 MEQ/LMemorial SzuztppLblsguoav1979-38-83 16:35:002.5[facility] HeplcwuCotzhcazf0069-28-61 16:35:0029[facility] HqhhbkaMqllifwpg4410-40-68 16:35:00 Test Item Value Reference Range Interpretation Comments BUN/CREAT (test code = BUN/CREAT) 12 1 6-25 [facility] ToaenoiJdssyrkux7053-99-19 16:35:004.2[facility]ann[facility] 2014-02-18 16:35:008.9[facility] FmdtzscHdhktdcuu2420-85-24 16:35:0036[facility] WuspbtzJghibrlnm1252-90-14 16:35:0025[facility] XwnjimiSbkxozdrx0766-60-37 16:35:97504Netgzmsw NoieanhPiiflujwn5542-78-69 16:35:001.380[facility] Jimmy Bxqkzyykz7870-28-69 16:35:002.00[facility] QmimltcRiomtvallf9023-25-08 16:35:00 13.9[facility] VfuitoyGrxeohgwsg3865-52-30 16:35:0041.4[facility]annHematology 2014-02-18 16:35:35745 K/CMMMemorial JpkakiyFnmohhkg9362-98-18 16:35:00Non ReactiveMemorial YewsuejRwwgfgxeh4878-96-03 16:35:48339Cmogyavu [facility]annChemistry 2014-02-18 16:35:41591Hfdppzhn YuqmwrmNhqmfvbew1855-10-45 16:35:0032[facility] SenqauxXbmxcmmik8812-59-88 16:35:86774Odnhhonx PvqnnytHrdqcrszb0438-53-66 16:35:63632 MEQ/LMemorial BocmakdRoqwkipwj4337-02-82 16:35:004.3 MEQ/LMemorial XuvegzyJxteadazs0983-52-74 16:35:002.5[facility] NqcprieKmbpqlnle8824-56-37 16:35:0029[facility] QxspdqhBxmpornsk9881-90-75 20:45:59230Pijdbqrz Jimmy Tbzokolbm5438-04-92 20:45:87119Ruykmlxy ZrtegmfXcqamwdwp9835-51-43 20:45:0023 [facility] ZpwdrjzAhjmjwjiw2942-45-12 20:45:16588Cokdsvss [facility]annChemistry 2013-01-23 20:45:47255Newhidov RamowoyAqrptoqpk2600-74-93 20:45:0023[facility] RehwpotPufncfeed8414-26-97 20:45:00See Note mg/dLMemorial HermannChemistry 2013-01-23 20:45:25248 MEQ/LMemorial JmigvjwBveswudyo4447-15-30 20:45:004.5 MEQ/LMemorial JrylgnaWprxgcran2328-17-20 20:45:001.8[facility]annChem[facility] 2013-01-23 20:45:0030[facility] ItcssvyZhbituune7938-64-85 20:45:00 Test Item Value Reference Range Interpretation Comments BUN/CREAT (test code = BUN/CREAT) 17 1 6-25 [facility] NmjjzwqKdgfrjpec2420-20-33 20:45:004.2[facility]annChem[facility] 2013-01-23 20:45:009.3[facility] RxpyhsdFxxkoddvh6363-96-39 20:45:0031[facility] QmjaxuoFghopvbrw5361-27-06 20:45:0020[facility] UchgjjlFynprhqpi7279-44-55 20:45:85063Auhdiyun WtzeadfEvikpqmcp4985-59-39 20:45:001.390[facility] Jimmy Cowvvbpck3514-36-65 20:45:001.33[facility] KrkcfzoWruhfpjvm9645-36-46 20:45:71428 [facility] WdzhbjtBiygvmoxq9642-12-68 20:45:04731Zrbopnds [facility]Chem[facility] 2013-01-23 20:45:0023[facility] MnomhlpIuziipjrr9839-48-70 20:45:41116Rzkwcnjz QnngqdeGqglsrdxb6689-70-32 20:45:38417Mhacqgmr VecqbhxRxksonmji5541-88-26 20:45:0023[facility] RqtxfalTnbztlbwb6420-81-31 20:45:00See Note mg/dLMemorial TcecrcvTqqyjsaqg3544-63-39 20:45:93270 MEQ/LMemorial FqqgpdlPdmikyehp9631-54-22 20:45:004.5 MEQ/LMemorial QqzgugbMyvvnronf6702-06-25 20:45:001.8[facility] Jktvldslm7806-25-07 20:45:0030[facility] BwhxvuxIjnnsidez0948-16-96 20:45:00 Test Item Value Reference Range Interpretation Comments BUN/CREAT (test code = BUN/CREAT) 17 1 6-25 [facility] LboyacfTlfkhgigk0051-04-13 20:45:004.2[facility]annChem[facility] 2013-01-23 20:45:009.3[facility] SluejckCeffdtexx9693-73-44 20:45:0031[facility] CecdjskHiqlnezoc2935-16-96 20:45:0020[facility] DxkrofiXlffuciae3124-42-35 20:45:44855Xxnbmnjd ZedzhheUolvslgob5870-62-49 20:45:001.390[facility] Jimmy Igctlublt7022-83-23 20:45:001.33[facility] DjdtigrUypapzyti9312-09-42 15:12:571.57 [facility] FlwpdrhVjtufscfk2612-55-69 15:12:571.57[facility]annChemistry 2012-04-02 15:12:571.57[facility] CuypuppUyyrmjeko2533-05-33 15:12:571.Nadeem Marquez"
[2021-12-09] MEDS ORDERED: FAMOTIDINE 20 MG/2 ML VIAL IV ONE (12:05)
[2021-12-09 12:11] LABS: Absolute Lymphocytes (CBC) 0.5 K/uL (0.7-4.9); Hematocrit 35.2 % (39.6-49.0); Lymphocytes % 5.3 % (15.3-44.8); MCV 88.7 fL (80-100); MPV 6.6 fL (7.6-11.3); RBC Red Blood Cell Count 3.97 M/uL (4.33-5.43)
[2021-12-09 12:32] LABS: Albumin 3.2 g/dL (3.4-5.0); Bilirubin Total 0.6 mg/dL (0.2-1.0); Potassium 4.7 mmol/L (3.5-5.1); Protein, Total 8.2 g/dL (6.4-8.2)
--- NOTE | 2021-12-09 12:52 | RAD REPORT ---
EXAM DESCRIPTION: CT - Abdomen Pelvis Wo Contrast - 12/09/2021 12:23 pm CLINICAL HISTORY: rectal bleeding COMPARISON: [facility] Protocol dated 01/11/2021; Chest Pa And Lat (2 Views) dated 08/31/2021 TECHNIQUE: Axial [address] imaging of the abdomen and pelvis was performed without IV contrast. No IV contrast was given because of allergy, abnormal renal function, patient refusal or physician re quest. No oral contrast given. All CT scans are performed using dose optimization technique as appropriate and may include automated exposure control or mA/KV adjustment according to patient size. FINDINGS: Small right pleural effusion is present and is probably loculated. Posterior gutter parenc hymal opacification is most likely atelectasis. Right hemidiaphragm elevation is present. Cardiomegal y is present without pericardial effusion. Coronary artery calcifications present. No focal liver parenchymal lesions seen on noncontrast imaging. Patient has a right lateral flank her vince at the inferior aspect of the ribcage. Lateral inferior right lobe liver projects through the her vince defect. This is a stable presentation. No acute pancreatic process. Gallbladder and biliary tree unremarkable appear no splenomegaly or focal splenic finding. Right nephrectomy surgical changes are present. Left kidney shows lobulated contour. Slight fullness of the left renal pelvis matches comparison. No obstructing or nonobstructing calculi identified. No significant adrenal finding. Isodense renal masses and pyelonephritis cannot be excluded in the absen ce of IV contrast. The urinary bladder is without significant finding. Stomach is decompressed with only a small amount air within the lumen. This accentuates wall thicknes s. No asymmetric wall thickening or clearly defined gastric mass. No small bowel acute findings. No a ppendicitis findings. From cecum through mid transverse colon the right-side colon shows prominent di verticulosis but no acute finding in the right side. At the splenic flexure there is a 5 cm long area of circumferential wall thickening with edema and stranding in the adjacent fat. Patient has promine nt diverticulosis throughout the left side colon. Rectal anastomotic site shows no acute finding. No wall thickening or acute finding at the rectum. No free air, free fluid or pneumatosis. No mass or bulky lymphadenopathy. Disc and bone degenerative changes are present. No acute or pathologic bone process seen. Vascular ca lcifications are present. IMPRESSION: A 5 cm long segment of circumferential wall thickening seen in the splenic flexure of th e colon. There is surrounding inflammatory stranding but no air or extravasation of bowel content. In a patient with catherine diverticulosis, the splenic flexure finding is most likely acute diverticulitis . Malignant mass etiology is unlikely. Follow-up imaging could be obtained following medical manageme nt. No abscess, free air or surgically emergent component. Full assessment is limited is the absence of IV contrast.
[2021-12-09 13:21] LABS: SARS-CoV-2 Antigen Rapid Res Negative (Negative)
[2021-12-09] MEDS ORDERED: METRONIDAZOLE 500mg IVPB 500 MG/100 ML BAG IV ONE (13:32)
[2021-12-09] MEDS ORDERED: CIPROFLOXACIN HCL 500 MG TAB ONE (13:32)
--- NOTE | 2021-12-09 13:34 | EDPHYS ---
Physician Documentation [facility] Name: Amando Grossman Age: 76 yrs Sex: Male : 1945 Arrival Date: 12/09/2021 Time: 11:09 Bed 16 Private MD: ED Physician Trevor Abdalla HPI: 12/09 13:33 This 76 yrs old Male presents to ER via EMS with complaints of Rectal Bleeding. kdr 13:33 The patient presents to the emergency department with bleeding from the rectum/anus, kdr that is mild. Onset: The symptoms/episode began/occurred this morning. Context: the patient Patient had 2 episodes of rectal bleeding this morning. The first involved some blood in his stool, the second involved small blood clots. Patient's had a similar situation previously and that resulted in in 1 instance a colon resection and the other significant transfusions and embolization along with transfer. 13:34 Severity of symptoms: At their worst the symptoms were mild in the emergency department kdr the symptoms are unchanged. The patient has experienced similar episodes in the past, a few times. The patient has not recently seen a physician. 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 - Social history:: Smoking status: Patient denies any tobacco usage or history of. ROS: 13:34 Constitutional: Negative for fever, chills, and weight loss, Eyes: Negative for injury, kdr pain, redness, and discharge, ENT: Negative for injury, pain, and discharge, Neck: Negative for injury, pain, and swelling, Cardiovascular: Negative for chest pain, palpitations, and edema, Respiratory: Negative for shortness of breath, cough, wheezing, and pleuritic chest pain, Back: Negative for injury and pain, : Negative for injury, bleeding, discharge, and swelling, MS/Extremity: Negative for injury and deformity, Skin: Negative for injury, rash, and discoloration, Neuro: Negative for headache, weakness, numbness, tingling, and seizure activity. Psych: Negative for depression, anxiety, suicide ideation, homicidal ideation, and hallucinations, Allergy/Immunology: Negative for hives, rash, and allergies, Endocrine: Negative for neck swelling, polydipsia, polyuria, polyphagia, and marked weight changes, Hematologic/Lymphatic: Negative for swollen nodes, abnormal bleeding, and unusual bruising. 13:34 Abdomen/GI: Positive for abdominal cramps, rectal bleeding, Negative for nausea and vomiting, diarrhea, constipation, abdominal cramps, abdominal distension. Exam: 13:34 Constitutional: This is a well developed, well nourished patient who is awake, alert, kdr and in no acute distress. Head/Face: Normocephalic, atraumatic. Eyes: Pupils equal round and reactive to light, extra-ocular motions intact. Lids and lashes normal. Conjunctiva and sclera are non-icteric and not injected. Cornea within normal limits. Periorbital areas with no swelling, redness, or edema. Neck: Trachea midline, no thyromegaly or masses palpated, and no cervical lymphadenopathy. Supple, full range of motion without nuchal rigidity, or vertebral point tenderness. No Meningismus. Chest/axilla: Normal chest wall appearance and motion. Nontender with no deformity. No lesions are appreciated. Cardiovascular: Regular rate and rhythm with a normal S1 and S2. No gallops, murmurs, or rubs. Normal PMI, no JVD. No pulse deficits. Respiratory: Lungs have equal breath sounds bilaterally, clear to auscultation and percussion. No rales, rhonchi or wheezes noted. No increased work of breathing, no retractions or nasal flaring. Back: No spinal tenderness. No costovertebral tenderness. Full range of motion. Skin: Warm, dry with normal turgor. Normal color with no rashes, no lesions, and no evidence of cellulitis. MS/ Extremity: Pulses equal, no cyanosis. Neurovascular intact. Full, normal range of motion. Neuro: Awake and alert, GCS 15, oriented to person, place, time, and situation. Cranial nerves II-XII grossly intact. Motor strength 5/5 in all extremities. Sensory grossly intact. Cerebellar exam normal. Normal gait. Psych: Awake, alert, with orientation to person, place and time. Behavior, mood, and affect are within normal limits. 13:34 Abdomen/GI: Inspection: abdomen appears normal, obese Bowel sounds: active, diminished, in all quadrants, Palpation: soft, nontender, mass, is not appreciated, rebound tenderness, is not appreciated, Rectal exam: rectal tone normal, Stool: guaiac positive, black, hemorrhoid(s), without bleeding, without inflammation, without thrombosis, without pain, the exam is chaperoned by the nurse, Indicators: Vital Signs: 11:00 BP 152 / 72; Pulse 69; Resp 18; Temp 98.2; Pulse Ox 99% on R/A; Weight 81.65 kg; Height ko1 5 ft. 8 in. (172.72 cm); Pain 0/10; 11:34 BP 161 / 70; Pulse 75; Resp 18; Temp 98.4; Pulse Ox 98% on R/A; ko1 12:57 BP 155 / 68; Pulse 77; ko1 13:30 BP 165 / 74; Pulse 72; Resp 16; Pulse Ox 99% ; Pain 0/10; ko1 11:00 Body Mass Index 27.37 (81.65 kg, 172.72 cm) ko1 MDM: 13:33 Patient medically screened. kdr 13:34 Data reviewed: vital signs, nurses notes, lab test result(s), radiologic studies. kdr Counseling: I had a detailed discussion with the patient and/or guardian regarding: the historical points, exam findings, and any diagnostic results supporting the discharge/admit diagnosis, lab results, radiology results, the need to transfer to another facility. 12/09 11:34 Order name: CBC with Diff; Complete Time: 12:29 kdr 12/09 11:34 Order name: CMP; Complete Time: 12:44 kdr 12/09 11:34 Order name: Lipase; Complete Time: 12:44 kdr 12/09 11:34 Order name: Type And Screen; Complete Time: 12:57 kdr 12/09 11:35 Order name: Occult Blood--Ancillary; Complete Time: 12:44 eb 12/09 12:42 Order name: SARS RAPID; Complete Time: 13:44 eb 12/09 11:34 Order name: IV Saline Lock; Complete Time: 12:03 kdr 12/09 11:34 Order name: Labs collected and sent; Complete Time: 12:03 kdr 12/09 11:44 Order name: Abdomen ; Complete Time: 12:57 EDMS 12/09 13:21 Order name: Hemoglobin kdr Administered Medications: 12:13 Drug: Pepcid (famotidine) 20 mg Route: IVP; Site: right antecubital; ko1 13:41 Drug: Cipro (ciprofloxacin) 500 mg Route: PO; ko1 13:41 Drug: Flagyl (metroNIDAZOLE) 500 mg Volume: 100 ml; Route: IVPB; Rate: 200 ml/hr; ko1 Infused Over: 30 mins; Site: right antecubital; Disposition Summary: 12/09/21 13:33 Transfer Ordered Transfer Location: [facility] kdr Reason: Higher level of care kdr Condition: Fair kdr Problem: an acute exacerbation kdr Symptoms: have improved kdr Accepting Physician: Dr. Donell Chau [facility](12/09/21 15:45) ko1 Diagnosis - Left sided colitis with rectal bleeding kdr Forms: - Medication Reconciliation Form kdr - SBAR form kdr Signatures: Dispatcher [employer] EDMS Trevor Abdalla MD MD kdr Jenny Matthews Kathy, RN RN ko1 Corrections: (The following items were deleted from the chart) 11:12 11:11 PSHx: Right Nephrectomy; ko1 ko1 11:12 11:11 PSHx: colon resection; ko1 ko1 11:12 11:11 PSHx: Replacement of total knee joint; Bilateral; ko1 ko1 11:12 11:11 PSHx: Carpal tunnel surgery, bilateral; ko1 ko1 11:12 11:11 PSHx: CABG; ko1 ko1 11:12 11:11 PSHx: Cardaic stent; ko1 ko1 11:12 11:11 PSHx: right AKA; ko1 ko1 11:58 11:49 Abdomen Pelvis Wo Con+CT.RAD.BRZ ordered. EDMS EDMS 13:57 13:33 ee kdr eb 15:45 13:57 Dr. Marley Marva [facility] eb ko1
--- NOTE | 2021-12-09 13:34 | ER ---
Nurse's Notes [facility] Name: Amando Grossman Age: 76 yrs Sex: Male : 1945 Arrival Date: 12/09/2021 Time: 11:09 Bed 16 Private MD: Diagnosis: Left sided colitis with rectal bleeding Presentation: 12/09 11:00 Chief complaint: EMS states: patient has had about 2 cups of rectal bleeding per ko1 patient. Coronavirus screen: At this time, the client does not indicate any symptoms associated with coronavirus-19. Ebola Screen: No symptoms or risks identified at this time. Initial Sepsis Screen: Does the patient meet any 2 criteria? No. Patient's initial sepsis screen is negative. Does the patient have a suspected source of infection? No. Patient's initial sepsis screen is negative. Risk Assessment: Do you want to hurt yourself or someone else? Patient reports no desire to harm self or others. Onset of symptoms was December 09, 2021. 11:00 Method Of Arrival: EMS: [facility] ko1 11:00 Acuity: KELLY 3 ko1 Triage Assessment: 11:11 General: Appears in no apparent distress. comfortable, Behavior is calm, cooperative, ko1 appropriate for age. Pain: Denies pain. 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 - Social history:: Smoking status: Patient denies any tobacco usage or history of. Screenin:14 Abuse screen: Denies threats or abuse. Denies injuries from another. Nutritional ko1 screening: No deficits noted. Tuberculosis screening: No symptoms or risk factors identified. Fall Risk None identified. Assessment: 11:14 General: Appears in no apparent distress. comfortable, Behavior is calm, cooperative, ko1 appropriate for age. Pain: Denies pain. Neuro: No deficits noted. Cardiovascular: No deficits noted. Respiratory: No deficits noted. GI: Reports bloody stool. : No deficits noted. EENT: No deficits noted. Derm: No deficits noted. 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 Vital Signs: 11:00 BP 152 / 72; Pulse 69; Resp 18; Temp 98.2; Pulse Ox 99% on R/A; Weight 81.65 kg; Height ko1 5 ft. 8 in. (172.72 cm); Pain 0/10; 11:34 BP 161 / 70; Pulse 75; Resp 18; Temp 98.4; Pulse Ox 98% on R/A; ko1 12:57 BP 155 / 68; Pulse 77; ko1 13:30 BP 165 / 74; Pulse 72; Resp 16; Pulse Ox 99% ; Pain 0/10; ko1 11:00 Body Mass Index 27.37 (81.65 kg, 172.72 cm) ko1 ED Course: 11:09 Patient arrived in ED. eb 11:09 Teresa Alanis, ADRIEN is Primary Nurse. ko1 11:09 Trevor Abdalla MD is Attending Physician. kdr 11:11 Triage completed. ko1 11:11 Arm band placed on right wrist. ko1 11:14 Patient has correct armband on for positive identification. Allergy band placed. Placed ko1 in gown. Bed in low position. Call light in reach. Side rails up X 1. Client placed on continuous cardiac and pulse oximetry monitoring. NIBP monitoring applied. diesel power mechanic on. 12:03 Type And Screen Sent. ko1 12:03 CBC with Diff Sent. ko1 12:03 CMP Sent. ko1 12:03 Lipase Sent. ko1 12:14 Inserted saline lock: 20 gauge in right antecubital area, using aseptic technique. ko1 Blood collected. 12:25 Abdomen In Process Unspecified. EDMS 12:41 initiated a transfer with [facility] at the request of the eb patient. 12:47 per Mariah [facility] will have to deny the transfer due to facility being at capacity/. eb 12:47 SARS RAPID Sent. ko1 13:22 initiated a transfer with Galo Gambino from the [facility]. eb 13:30 Report given to Lindsey Cordova RN at [facility]. ko1 13:30 No provider procedures requiring assistance completed. Patient transferred, IV remains ko1 in place. 13:42 connected the Hospitalist floor coverings salesperson for [facility] with Dr. Abdalla for patient transfer [facility]. 13:42 Hemoglobin Sent. ko1 13:45 administrative approval given by Galo Gambino/ patient has been accepted to [facility] rm 1418/ Dr. Marley has accepted the patient in transfer/ report to be called to [phone]. Administered Medications: 12:13 Drug: Pepcid (famotidine) 20 mg Route: IVP; Site: right antecubital; ko1 13:41 Drug: Cipro (ciprofloxacin) 500 mg Route: PO; ko1 13:41 Drug: Flagyl (metroNIDAZOLE) 500 mg Volume: 100 ml; Route: IVPB; Rate: 200 ml/hr; ko1 Infused Over: 30 mins; Site: right antecubital; Medication: 13:30 VIS not applicable for this client. ko1 Outcome: 13:30 Transferred by private ambulance . to [facility], Transfer form ko1 completed. X-rays sent w/ patient. 13:30 Condition: stable 13:30 Discharge instructions given to patient, EMS, Instructed on the need for transfer, Demonstrated understanding of instructions. 13:33 ER care complete, transfer ordered by . kdr 15:45 Patient left the ED. ko1 Signatures: Dispatcher [employer] EDMS Trevor Abdalla MD MD kdr Botello, Elizabeth eb Oliver, Kathy RN RN ko1 Corrections: (The following items were deleted from the chart) 11:12 11:11 PSHx: Right Nephrectomy; ko1 ko1 11:12 11:11 PSHx: colon resection; ko1 ko1 11:12 11:11 PSHx: Replacement of total knee joint; Bilateral; ko1 ko1 11:12 11:11 PSHx: Carpal tunnel surgery, bilateral; ko1 ko1 11:12 11:11 PSHx: CABG; ko1 ko1 11:12 11:11 PSHx: Cardaic stent; ko1 ko1 11:12 11:11 PSHx: right AKA; ko1 ko1
[2021-12-09 16:04] VITALS: TEMP 98.4
[2021-12-09 16:27] VITALS: BP 165/74; O2SAT 99
== END 2021-12-09 15:45 | disposition short-term general hospital (02) ==
LOC: ER 10:57
DX: K51.511 Left sided colitis with rectal bleeding (principal); Z99.2 Dependence on renal dialysis; I10 Essential (primary) hypertension; Z88.0 Allergy status to penicillin; Z91.013 Allergy to seafood; Z88.8 Allergy status to other drugs, medicaments and biological substances; Z91.048 Other nonmedicinal substance allergy status; Z20.822 Contact with and (suspected) exposure to COVID-19
CPT/HCPCS: 36415; 74176; 80053; 82272; 83690; 85018; 85025; 86850; 86900; 86901; 87811; 96374; 96375; 99285

== ENCOUNTER 2021-12-15 23:02 | Emergency (ER) | payer OTHER, BC ==
--- OUTSIDE RECORDS SUMMARY | 2021-12-15 23:12 | XMS REPORT | Continuity of Care Document ---
:1945 Author Organization [facility] t Address [address] [place] [address] Care Team Providers Name Role Phone ALISON COMBS Primary Care Physician Unavailable [id number] Attending Clinician Unavailable SHARON DIAZ IGNAZIO Attending Clinician Unavailable Provider, Undefined Attending Clinician Unavailable Sekou Curtis Attending Clinician Unavailable Fausto Espino Attending Clinician Unavailable Chaya Villafuerte Kelcey Attending Clinician Unavailable NEERU MARLEY Attending Clinician Unavailable Neeru Marley MD Attending Clinician RADIOLOGY Attending Clinician Unavailable Radiology Attending Clinician Unavailable Doctor Unassigned, [place] Attending Clinician Unavailable Maddy Guo Attending Clinician SVETLANA KENNY Attending Clinician Unavailable Javad MOSQUERA, Arturo Gupta Attending Clinician [phone] Svetlana Cano MD Attending Clinician Daniel Rocha MD Attending Clinician LOVE HILARIO Attending Clinician Unavailable Nicky Sandoval MA Attending Clinician Unavailable SANDRA GUO Attending Clinician Unavailable Usha MOSQUERA, Obi Almanza Attending Clinician Emilee Wooten MA Attending Clinician Unavailable Nolberto MOSQUERA, Suzanne Egan Attending Clinician [phone] Clint King DO Attending Clinician [phone] Kristopher Forman MD Attending Clinician Liu Mccloud Attending Clinician Clint Graham MD Attending Clinician Oswald York MD Attending Clinician Wanda Pedraza Attending Clinician Wanda PICKENS Attending Clinician Unavailable Melany MOSQUERA, Liss Baxter Attending Clinician [id number] Admitting Clinician Unavailable SHARON DIAZ IGNAZIO Admitting Clinician Unavailable CHAYA VILLAFUERTE Admitting Clinician Unavailable Sekou Curtis Admitting Clinician Unavailable Fausto Espino Admitting Clinician Unavailable Chaya Villafuerte Kelcey Admitting Clinician Unavailable NEERU MARLEY Admitting Clinician Unavailable ADRIANA ARELLANO Admitting Clinician Unavailable SVETLANA CANO Admitting Clinician Unavailable JESSICA BELLAMY Admitting Clinician Unavailable CLINT KING Admitting Clinician Unavailable Payers Payer Name Policy Type Policy Number Effective Date Expiration Date S malachi [facility] [id number] BCTX BCTI [id number] MEDICARE A B [id number] 2010 00:00:00 [place] [id number] 2010 OS 00:00:00 MEDICARE PART A \\T\\ [id number] 2010 B 00:00:00 BCBS TRADITIONAL [id number] 2010 00:00:00 MEDICARE PART B - [id number] 2010 2014 MEDICARE 00:00:00 00:00:00 PPO/EPO - BCBS [id number] 2016 00:00:00 Problems Condition Condition Condition Status Onset Resolution Last Treating Co mments Source Name Details Category Date Date Treatment Clinician Date Diverticul Diverticul Disease Active 2021-[address] [facility] Lower GI Lower GI Disease Active 2021-02 [facility] Hyperkalem Hyperkalem Disease Active M [facility] ia [facility] 5 [facility] 00:00: Hospita 00 l Acute GI Acute GI Disease Active [facility] di bleeding bleeding 06-12 st 00:00: Hospita 00 l End stage End stage Disease Active [facility] renal renal 4-04 [facility] [employer] disease disease 00:00: t & Plan: of (HCCode) (HCCode) 00 Formattin Med icin g of this e note might be different from the original. Stable on HD. 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 Stable symptoms on current regimen which are separate from his recent chest pain. 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 B aylor tic aortic tic aortic 0-10 [facility] sclerosis sclerosis 00:00: t & Plan: [...] Added automatic ally from request for surgery [id number] End stage End stage Disease Active [facility] renal renal 03-05 st disease on disease on 00:00: Ho spita dialysis dialysis 00 l Impaired Impaired Disease Active 2018-02 [facility] r fasting fasting 17 [facility] glucose glucose 00:00: of Medicin e Urinary Urinary Disease Active 2018-02 [facility] frequency frequency 1-17 Natan ege 00:00: Medicin e Chronic Chronic Disease Active 2018-02 [facility] disease disease 0-09 st anemia anemia 00:00: Hospita 00 l Chronic Chronic Disease Active 2018-02 [facility] kidney kidney 0-09 disease, disease, 00:00: Hospit a stage IV stage IV 00 l (severe) (severe) Chronic Chronic Disease Active 2018-02 [facility] disease disease 0-09 st anemia anemia 00:00: Hospita 00 l Arthritis Arthritis Disease Active 2017-02 [facility] of knee, of knee, 2-11 Colleg e left left 00:00: of 00 Medicin e 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 [facility] knee knee 2-11 College replacemen replacemen 00:00: of t, t, 00 Medicin bilateral bilateral e Anemia, Anemia, Disease Active 2017-02 [facility] unspecifie unspecifie -13 st d d 00:00: Hospita 00 l Chronic Chronic Disease Active [facility] renal renal 6-11 [facility] disease, disease, 00:00: of stage 4, stage 4, 00 Medici n severely severely e decreased decreased glomerular glomerular filtration filtration rate (GFR) rate (GFR) between between 15-29 15-29 mL/min/1.7 mL/min/1.7 3 square 3 square meter meter (HCCode) (HCCode) Atheroscle Atheroscle Disease Active Overview : [facility] rosis of [facility]sis [facility] 09[facility] seminole seminole 00:00: g of this of coronary coronary 00 note Medici n artery of artery of might be e seminole seminole different heart heart from the without without original. angina angina Long pectoris pectoris standing disease, stable with current RxLast Assessmen t & Plan: Formattin g of this note might be different from the original. Asymtomat ic on the current level of activity and medical regimen.L exiscan ordered. Essential Essential Disease Active Overview: [facility] hypertensi hypertensi 09-23 [facility] on on 00:00: g of this of 00 note Medicin might be e different from the original. Stable and sometimes BP drops too muchLast Assessmen t & Plan: Formattin g of this note might be different from the original. Controlle d on the current regimen. Heart Heart Disease Active Overview: [facility] murmur murmur 09-23 A [facility] 00:00: systolic of 00 murmur Medicin Grade 2/6 e over LSB , not radiating in any direction but audible over most of [place] l areaLast Assessmen t & Plan: Continue current Rx and control all risk factors including weight S/P S/P Disease Active Overview: [facility] angioplast angioplast 09-23 In 2009 C ollege y with y with 00:00: he had A of stent stent 00 stent Medicin deployed e in proximal RCA andCx had only Angioplas ty with good resultsLa Assessmen t & Plan: Continue current Rx and control all risk factors including weight H/O H/O Disease Active Overview: [facility] unilateral unilateral 09-23 He had Co llege nephrectom nephrectom 00:00: nephrecto of y y 00 my long Medicin time ago e and the other kidney is weakLast Assessmen t & Plan: Monitor closely Rx and control all risk factors including weight Dyslipidem Dyslipidem Disease Active Overview : [facility] ia ia 09-23 [facility] 00:00: g of this of note Medicin might be e different from the original. Last year they were not perfectCu rrent Labs pendingLa st Assessmen t & Plan: Formattin g of this note might be different from the original. Controlle d on the current regimen. 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 Antibioti c Last Assessmen t & [...] joint joint ROUTINE ROUTINE Condition Active 2014-02-18 [facility] GENERAL GENERAL 1-08 10:35:00 l MEDICAL MEDICAL 00:00: Jimmy EXAMINATIO EXAMINATIO 00 N AT A N AT A [facility] FACILITY Active 02/18/2014 Condition 02/18/2014 Medical Group HYPERTROPH HYPERTROP Condition Active 2012-022014-02-18 Memoria Y PROSTATE HY 2-13 10:35:00 l W/UR OBST PROSTATE 00:00: Mary nn & OTH LUTS W/UR OBST 00 & OTH LUTS Active 01/23/2013 Condition 02/18/2014 Medical Group DYSLIPIDEM DYSLIPIDE Condition Active 2014-02-18 [facility] IA RUMA Active 10:35:00 l Condition [place] 02/18/2014 Medical Group GERD GERD Condition Active 2014-02-18 Mem oria Active 10:35:00 l Condition [place] 02/18/2014 Medical Group ASCVD ASCVD Condition Active 2014-02-18 Mem oria Active 10:35:00 l Condition [place] 02/18/2014 Medical Group CAD CAD Condition Active 2014-02-18 Mem oria Active 10:35:00 l Condition [place] 02/18/2014 Medical Group CHRONIC CHRONIC Condition Active 2014-02-18 [facility] KIDNEY KIDNEY 10:35:00 l DISEASE DISEASE Jimmy STAGE III STAGE III (MODERATE) (MODERATE) Active Condition 02/18/2014 Medical Group HYPERTENSI HYPERTENS Condition Active 2014-02-18 Memoria ON ION Active 10:35:00 l Condition Jimmy 02/18/2014 Medical Group Allergies, Adverse Reactions, Alerts Allergy Allergy Status Severity Reaction(s) Onset Inactive Treating Comm ents Source Name Type Date Date Clinician Iodine FA Active AR 0 [facility] and 05-13 Clear Iodide 00:00: Smith Containi 00 [facility] shellfis FA Active SV 2020-0 [facility] h 05-13 Clear derived 00:00: Smith 00 [facility] PINICILL DA Active AR ITCHING [facility] IN 05-13 Clear 00:00: [facility] 00 [facility] No Known DA Active U [facility] Allergie 05-13 [place] s 00:00: d 00 [facility] No Known DA Active U [facility] Allergie 05-13 [place] s 00:00: d 00 [facility] Iodine FA Active AR DIARRHEA [facility] and 05-13 [place] Iodide 00:00: d Containi 00 [facility] Produc shellfis FA Active SV SWELLING [facility] h 05-13 [place] derived 00:00: d 00 [facility] Iodine Propensi Active Rash 2020-0 Univers ty to 9-30 ity of adverse 00:00: [place] reaction 00 [facility] Penicill Propensi Active Anaphylaxis 2020-0 U nivers ins ty to 9-30 ity of adverse 00:00: [place] reaction 00 [facility] IODINE DRUG Active Rash 2020-0 Univers INGREDI 9-30 ity of 00:00: [place] 00 [facility] PENICILL Drug Active Anaphylaxis 2020-0 Uni vers INS Class 9-30 ity of 00:00: [place] 00 [facility] SHELLFIS DRUG Active Diarrhea 2020-0 Univer s H INGREDI 9-30 ity of DERIVED 00:00: [place] 00 [facility] Shellfis Propensi Active Nausea 2020-0 Univer s h ty to and/or 9-30 ity of Derived adverse Vomiting 00:00: [place] reaction 00 Medical [facility] Penicill Propensi Active Anaphylaxis 2020-0 U nivers ins ty to 9-30 ity of adverse 00:00: [place] reaction 00 [facility] Penicill Propensi Active 2017-02 [facility] ins ty to 2-10 College adverse 00:00: of reaction 00 Medicin s to e drug Eicosape Propensi Active [facility] ntaenoic ty to 8-13 [facility] Acid adverse 00:00: Medical reaction 00 Center s Fish-Polo Propensi Active Moderate [facility] or ived ty to 09-23 College Products adverse 00:00: of reaction 00 Medicin s to e drug EICOSAPE Allergy Active [facility] NTAENOIC 09-23 ACID 00:00: 00 Iodine Propensi Active Moderate Armond ty to 09-23 College adverse 00:00: of reaction 00 Medicin [...] Hospita reaction 00 l s to drug IODINE Allergy Active Low Rash 2015-02 [facility] 0-20 00:00: 00 Penicill Propensi Active Rash 2015-02 unknown Metho di ins ty to 0-20 st adverse 00:00: Hospita reaction 00 l s to drug Atorvast Propensi Active [facility] atin ty to 2-24 [facility] adverse 00:00: Medical reaction 00 Center s Atorvast Propensi Active Armond atin ty to 2-24 College adverse 00:00: of reaction 00 Medicin s to e drug ATORVAST Allergy Active [facility] ATIN 2-24 00:00: 00 Shellfis Propensi Active Diarrhea, [facility] h ty to Nausea And - [facility] Containi adverse Vomiting 00:00: Medic al ng reaction 00 Center Products s Penicill Propensi Active Hives, unknown [facility] t ins ty to Anaphylaxis 07-09 [facility] adverse 00:00: Medical reaction 00 Center s PENICILL Allergy Active High Hives [facility] INS - 00:00: 00 SHELLFIS Allergy Active Diarrhea [facility] H 5- CONTAINI 00:00: NG 00 PRODUCTS PCN PCN Active [facility] [place] IODINE IODINE Active [facility] [place] Family History Family Member Diagnosis Comments Start Date Stop Date Source Natural father Heart disease [facility] Natural mother COPD [facility] Social History Social Habit Start Date Stop Date Quantity Comments Source Exposure to 2021-11-29 2021-12-[address] [facility] SARS-CoV-2 00:00:00 16:30:00 Medical Center (event) Alcohol intake 2021-06-13 2021-06-13 [facility] 00:[facility]:00 00:00:00 non-drinker of Hospital alcohol (finding) Tobacco use and 2014-07-09 2014-07-[address] [facility] k[facility] exposure 00:00:00 00:00:00 Medical Center Sex Ass[birth year] At [birth year] [facility] 00:[facility]:00 Hospital Smoking Status Start Date Stop Date Source Tobacco smoking consumption [facility] Never smoked tobacco [facility] Medications Ordered Filled Start Stop Current Ordering Indication Dosage Frequency Signature Comments Components Source Medication Medication Date Date Medication? Clinician (SIG) Name Name JULIANA 2021-02 Yes 3.75g Take 3.[address] HCL 1-01 g by mouth [facility] (WELCHOL 10:59: 2 (two) Medica l ORAL) 52 times Center daily with breakfast and dinner . zolpidem 2021-02 Yes 10mg Take [address] (AMBIEN) 10 02-11 by mouth Luke s mg tablet 10:59: every Medical 52 night as Center needed for Insomnia. DULoxetine 2021-02 Yes 60mg QD Take [address] (CYMBALTA) 02-11 by mouth [facility] 60 MG 10:59: daily. Medical capsule 52 Center coenzyme 2021-02 Yes [address] Q10 100 mg 02-11 [facility] Chew 10:59: Medical 52 Center niacin 500 2021-02 Yes [address] MG CR 02-11 [facility] capsule 10:59: Medical 52 Center losartan 2021-02 Yes 50mg QD Take [address] (COZAAR) 50 01 by mouth Luke s MG tablet 10:59: daily. Medica l 52 Center sertraline 2021-02 Yes 50mg Take [address] (ZOLOFT) 50 02-11 by mouth. Coco es MG tablet 10:59: Medical 52 Center aspirin 81 2021-02 Yes 81mg QD Take [address] MG EC 02-11 by mouth [facility] tablet 10:59: daily. Medical 52 Center furosemide 2021-02 Yes 40mg Take [address] (LASIX) 40 02-11 by mouth. Luke s MG tablet 10:59: Medical 52 Center B complex 2021-02 Yes 1{capsu Take [address] 11-folic-C- 02-11 le} capsule by Marli guillaume biot-zinc 10:59: mouth as Medi raman (Dialyvite) 52 needed Center 1-100-300-5 With 0 dialysis mg-mg-mcg-m day. g Tab gabapentin 2021-02 Yes 300mg Take [address] (NEURONTIN) 1-01 mg by [facility] 300 MG 10:59: mouth. Medical capsule 52 Center tamsulosin 2021-02 Yes .4mg Take 0.[address] (FLOMAX) 1-01 mg by [facility] 0.4 mg Cap 10:59: mouth. Medic al 24 hr 52 Center capsule ciprofloxac 2021-02 Yes 500mg QD Take [address] in HCl 02-11 tablet [facility] (CIPRO) 500 00:00: (500 mg Med ical MG tablet 00 total) by Cente r mouth daily. metroNIDAZO 2021-02- Yes 500mg Q.[id number] Take [address] LE (FLAGYL) 02-1108 [id number] tablet [facility] 500 MG 00:00: 23:59 3D (500 mg Medical tablet 00 :00 total) by Center mouth 3 (three) times daily for 7 days. zolpidem 2021-02- No 10mg Take [address] (AMBIEN) 10 0-31 10-29 by mouth. Marli kes mg tablet 21:40: 00:00 Medical 40 :00 Center NIFEdipine 2021-02- No 60mg QD Take [address] (PROCARDIA- 0-29 10-29 by mouth Coco es XL) 60 MG 17:00: 00:00 daily. Medic al (OSM) 24 hr 17 :00 Center tablet metoprolol 2021- No 12.5mg QD Take 12.5 [facility] tartrate 6-29 06-[address] (LOPRESSOR) 13:17: 00:00 mouth Hosp omega 25 mg 12 :00 every l tablet evening. metoprolol 2021- No 12.5mg QD Take 12.5 [...] must have 10mg dose. Please order 10mg. gabapentin Yes 300mg QD Take 300 Me [...] QD Take 81 mg Met [facility] (ECOTRIN) 5- 05-[address] 81 MG 15:42: 00:00 daily. Hospita enteric 01 :00 l coated tablet losartan 2021- No 50mg Q.5D Take 50 mg Me thodi (COZAAR) 50 5- 05-05 by mouth 2 s t MG tablet 15:42: 00:00 (two) Hospit a 01 :00 times a l day. aspirin 2021- No 81mg QD Take 81 [...] 52 :00 needed for l tablet sleep. colesevelam 2021- No 2{packa Q24H Take 2 [...] tablet 15:42: daily. Hospit a 49 l tamsulosin Yes .4mg QD Take 0.4 Met [...] Q.5D Take 3 Method i (COZAAR) 25 - 06-[address] MG tablet 00:00: 04:59 (75 mg Hospi ta 00 :00 total) by l mouth 2 (two) times a day for 30 days. losartan 2021- No 75mg Q.5D Take 3 Method i (COZAAR) 25 - 06-[address] MG tablet 00:00: 04:59 (75 mg Hospi ta 00 :00 total) by l mouth 2 (two) times a day for 30 days. metroNIDAZO 2021- No [id number] 500mg Q.[id number] Take 1 [facility]i LE (FLAGYL) 06-[id number] 500 MG 00:00: 04:59 3D (500 mg Hospita tablet 00 :00 total) by l mouth 3 (three) times a day for 8 days. ciprofloxac 2021- No [id number] 500mg Q.5D Take 1 [facility] in (CIPRO) 06-[address] 500 MG 00:00: 04:59 (500 mg Hospita tablet 00 :00 total) by l mouth 2 (two) times a day for 8 days. metroNIDAZO 2021- No [id number] 500mg Q.[id number] Take 1 [facility] LE (FLAGYL) 06-[id number] 500 MG 00:00: 04:59 3D (500 mg Hospita tablet 00 :00 total) by l mouth 3 (three) times a day for 8 days. ciprofloxac 2021- No [id number] 500mg Q.5D Take 1 [facility] in (CIPRO) 5-05 05-[address] 500 MG 00:00: 04:59 (500 mg Hospita tablet 00 :00 total) by l mouth 2 (two) times a day for 8 days. acetaminoph 2021- No 2000mg QD Take 2,000 [facility] en 5-03 05-[address] (TYLENOL) 13:59: 00:00 mouth Hospit a 500 MG 20 :00 daily. l tablet acetaminoph 2021- No 2000mg QD Take 2,000 Method[facility] en 5-03 05-[address] (TYLENOL) 13:59: 00:00 [...] QD Take 81 mg Met [facility]odi (ECOTRIN) - 02-[address] 81 MG 17:35: 00:00 [...] (two) Hospita 31 times a l day. [place] twice daily diphenhydrA 0 Yes 25mg Take 25 mg [facility] MINE 2-[address] (BENADRYL) 17:35: once. Hospit a 25 mg 31 l tablet desvenlafax 0 Yes 25mg QD Take 25 mg Method[facility] [...] ORAL) Saturday, and Saturday. After dialysis acetaminoph 0 Yes 2000mg QD Take 2,000 Methodi en [...] (PRESERVISI times a ON day. ORAL) metoprolol 2020-0 2020- No 25mg Q.5D Take 1 Meth hreminia tartrate 2-12 03-15 tablet (25 st (LOPRESSOR) [...] DAILY Medicin e Multiple 2019-02 Yes Qd [facility] Vitamins-Mi 0-08 College nerals (EYE 16:05: [...] zolpidem 2019-02 Yes 10mg Take 10 mg [facility] (AMBIEN) 5 0-08 by mouth Colle ge MG tablet 16:05: nightly as of 09 needed for Medicin Sleep. e Sulfamethox 2019-02 Yes Take by [facility] taylor azole-Trime 0-08 mouth [place] thoprim 16:05: daily. of (BACTRIM 09 Medicin [...] by Ba ylor INE ER OR 0-08 10- mouth College 16:04: 00:00 daily. of 59 :00 Medicin e Coenzyme 2019- 2020- No 1 po qd [facility] Q10 100 MG 0-11-18 [place] CHEW 16:04: 00:00 of 50 :00 Medicin e Niacin CR 2019-02 2020- No 1 po qd Bayl or 500 MG CPCR 0-11-18 [place] 16:03: 00:00 of 53 :00 Medicin e Multiple 2019- Yes Qd [facility] Vitamins-Mi 0-08 [place] nerals (EYE 11:05: of VITAMINS 09 Medicin OR) e Tamsulosin [...] zolpidem 2019-02 Yes 10mg Take 10 mg [facility] t[facility] (AMBIEN) 5 0-08 by mouth Colle ge MG tablet 11:05: nightly as of 09 needed for Medicin Sleep. e Sulfamethox 2019-02 Yes Take by [facility] taylor azole-Trime 0-08 mouth [place] thoprim 11:05: daily. of (BACTRIM 09 Medicin OR) e furosemide 2019-02 Yes 40mg Take 40 mg B [facility] (LASIX) 40 0-08 by mouth Colle ge MG tablet 11:05: daily. of 09 Medicin e gabapentin 2019-02 Yes 100mg Take 100 Ba [facility] (NEURONTIN) 0-08 mg by [place] 100 MG 11:05: mouth two of capsule 09 times Medicin daily. e Colesevelam Yes TAKE [facility] taylor HCl 3.75 g 11-03 DIRECTED Colle ge PACK 00:00: TWICE of 00 DAILY Medicin e Colesevelam Yes TAKE [facility]wood taylor HCl 3.75 g 11-03 DIRECTED Colle ge PACK 00:00: TWICE of 00 DAILY Medicin e sulfamethox 2020- No 1{tbl} QD Take 1 M ethodi azole-trime 11-02- tablet by st thoprim 00:00: 00:00 mouth Hospita (Bactrim) 00 :00 daily. l 400-80 mg per tablet sulfamethox No TAKE ONE M ethodi azole-trime 08-[address] thoprim 00:00: 00:00 MOUTH Hospita (BACTRIM 00 :00 DAILY l DS) 800-160 mg per tablet metoprolol Yes TAKE ONE [facility] taylor (LOPRESSOR) 1-24 TABLET BY Col lege 50 MG 00:00: MOUTH of tablet 00 TWICE A Medicin DAY e metoprolol Yes TAKE ONE [facility] taylor (LOPRESSOR) 1-24 TABLET BY Col lege [...] Q10 100 mg 2-15 [facility] Chew 17:11: [address] niacin 500 2016-02 Yes [address] [facility] MG CR 2-15 [facility] capsule 17:11: [address] COLESEVELAM 2016-02 Yes 3.75g Take 3.[address] HCL 2-15 g by mouth [facility] (WELCHOL 17:11: 2 (two) Medica l ORAL) 46 times Center daily with breakfast and dinner . coenzyme 2017 Yes [address] [facility] Q10 100 mg 2-15 [facility] Chew 17:11: [address] niacin 500 2016-02 Yes [address] [facility] MG CR 2-15 [facility] capsule 17:11: [address] zolpidem 2016-02 Yes 10mg Take [address] (AMBIEN) 10 2-15 by mouth Luke s mg tablet 17:10: every Medical 17 night as Center needed for Insomnia. DULoxetine 2016-02 Yes 60mg QD Take [address] (CYMBALTA) 2-15 by mouth [facility] 60 MG 17:10: daily. Medical capsule 17 [place] NIFEdipine 2016-02 Yes 60mg QD Take [address] (PROCARDIA- 2-15 by mouth Luke s XL) 60 MG 17:10: daily. Medica l (OSM) 24 hr 17 [place] tablet zolpidem 2016-02 Yes 10mg Take [address] (AMBIEN) 10 2-15 by mouth Luke s mg tablet 17:10: every Medical 17 night as Center needed for Insomnia. DULoxetine 2016-02 Yes 60mg QD Take [address] (CYMBALTA) 2-15 by mouth [facility] 60 MG 17:10: daily. Medical capsule 17 [place] NIFEdipine 2016-02 Yes 60mg QD Take 60 [...] l 24 hr 00 Center capsule tamsulosin Yes .4mg 0.[address] (FLOMAX) 5-23 [facility] 0.4 mg Cp24 00:00: Medica l 24 hr 00 Center capsule tamsulosin 2014-0 2022- No .4mg 0.[address] (FLOMAX) 5-23 10-29 [facility] 0.4 mg Cp24 00:00: 00:00 Medic al 24 hr 00 :00 Center capsule pantoprazol 2015-0 Yes QD daily . [facility] e 5-22 [facility] (PROTONIX) 00:00: Medical 40 MG 00 Center tablet pantoprazol 2015-0 Yes 40mg QD Take 40 mg Methodi e 5-[address] (PROTONIX) 00:00: every Hospit a 40 MG EC 00 morning. l tablet pantoprazol 2015-0 Yes QD daily . [facility] e 5-22 [facility] (PROTONIX) 00:00: Medical 40 MG 00 Center tablet pantoprazol 2015-0 Yes QD daily . [facility] e 5-22 [facility] (PROTONIX) 00:00: Medical 40 MG 00 Center tablet pantoprazol 2015-0 Yes 40mg QD Take 40 mg Methodi e 5-[address] (PROTONIX) 00:00: every Hospit a 40 MG EC 00 morning. l tablet pantoprazol 2015-0 Yes 40mg QD Take 40 mg Methodi e 5-[address] (PROTONIX) 00:00: every Hospit a 40 MG EC 00 morning. l tablet clopidogrel 2015-0 Yes QD daily . [facility] (PLAVIX) 75 5-12 [facility] mg tablet 00:00: Medical 00 [place] fluticasone 2014-0 Yes 2{spray Q.5D [address] (FLONASE) 5-12 } by Nasal [facility] 50 00:00: route 2 Medical mcg/actuati 00 (two) Center on nasal times spray daily . metoprolol 2015-0 Yes 25mg Q.5D [address] (LOPRESSOR) 5-12 (two) [facility] 50 MG 00:00: times Medical tablet 00 daily . Center clopidogrel 2015-0 Yes QD daily . [facility] (PLAVIX) 75 5-12 [facility] mg tablet 00:00: Medical 00 Center fluticasone 2015-0 Yes 2{spray Q.5D [address] (FLONASE) 5-12 } by Nasal [facility] 50 00:00: route 2 Medical mcg/actuati 00 (two) Center on nasal times spray daily . metoprolol 2015-0 Yes Q.5D 2 (two) [facility] (LOPRESSOR) 5-12 times [facility] 50 MG 00:00: daily . Medical tablet 00 [place] nisoldipine Yes 34mg QD 34 mg [facility] t (SULAR) 34 5-12 daily . [facility] MG 24 hr 00:00: Medical tablet 00 [place] clopidogrel Yes QD daily . [facility] (PLAVIX) 75 5-12 [facility] mg tablet 00:00: Medical 00 [place] fluticasone Yes 2{spray Q.5D [address] (FLONASE) 5-12 } by Nasal [facility] 50 00:00: route 2 Medical mcg/actuati 00 (two) Center on nasal times spray daily . metoprolol Yes Q.5D 2 (two) [facility]12 times [facility] 50 MG 00:00: daily . Medical tablet 00 [place] nisoldipine Yes 34mg QD 34 mg [facility] ([facility] 34 5-12 daily . [facility] 24 hr 00:00: Medical tablet 00 [place] nisoldipine 2021- No 34mg QD [address] [facility] (SULAR) 34 5-12 10-29 daily . [facility] 24 hr 00:00: 00:00 Medical tablet 00 :00 [place] metoprolol 2020- No 25mg QD Take 25 mg Method[facility] tartrate -12 02-[address] (LOPRESSOR) 00:00: 00:00 daily. Hos imelda 50 MG 00 :00 l tablet CLOPIDOGREL Yes TAKE 1 Andres dora BISULFATE 1-08 TABLET BY l 75 MG TABS 10:35: MOUTH [place] n 00 DAILY NISOLDIPINE Yes TAKE 1 Andres dora ER 34 MG 1-08 TABLET BY l [id number] 10:35: MOUTH [place] 00 DAILY LOSARTAN Yes TAKE 1 Memoria POTASSIUM 1-08 TABLET BY l 100 MG TABS 10:35: MOUTH Mary nn 00 DAILY CYMBALTA 60 Yes TAKE 1 Andres dora MG CPEP 1-08 TABLET BY l 10:35: MOUTH [place] 00 DAILY PANTOPRAZOL Yes TAKE 1 Andres dora E SODIUM 40 1-08 TABLET BY l MG TBEC 10:35: MOUTH Jimmy 00 DAILY CLOPIDOGREL Yes TAKE 1 Andres dora BISULFATE 1-08 TABLET BY l 75 MG TABS 10:35: MOUTH [place] n 00 DAILY NISOLDIPINE Yes TAKE 1 Andres dora ER 34 MG 1-08 TABLET BY l [id number] 10:35: MOUTH Jimmy 00 DAILY LOSARTAN Yes [...] TABLET BY l MG TABS 14:45: MOUTH [place] DAILY LOSARTAN 2012-02 Yes TAKE 1 Mem[facility] POTASSIUM 2-13 TABLET BY l 100 MG TABS 14:45: MOUTH Mary nn 00 DAILY WELCHOL 2012-02 Yes TAKE 1 Mem[facility] 3.75 GM 2-13 TABLET BY l PACK 14:45: MOUTH [place] DAILY CYMBALTA 60 2012-02 Yes TAKE 1 Andres dora MG CPEP 2-13 TABLET BY l 14:45: MOUTH Jimmy DAILY PANTOPRAZOL 2012-02 Yes TAKE 1 Andres dora E SODIUM 40 2-13 TABLET BY l MG TBEC 14:45: MOUTH Jimmy DAILY METOPROLOL 2012-02 Yes TAKE 1 Memor ia TARTRATE 50 2-13 TABLET BY l MG TABS 14:45: MOUTH [place] 00 DAILY LOSARTAN 2012-02 Yes TAKE 1 [facility] POTASSIUM 2-13 TABLET BY l 100 MG TABS 14:45: MOUTH Mary nn 00 DAILY WELCHOL 2012-02 Yes TAKE 1 Memoria 3.75 GM 2-13 TABLET BY l PACK 14:45: MOUTH Jimmy DAILY CYMBALTA 60 2012-02 Yes TAKE 1 Andres dora MG CPEP 2-13 TABLET BY l 14:45: MOUTH [place] DAILY PANTOPRAZOL 2012-02 Yes TAKE 1 Andres dora E SODIUM 40 2-13 TABLET BY l MG TBEC 14:45: MOUTH Jimmy DAILY PLAVIX 75 2012-02 No TAKE 1 Memori a MG TABS 2-13 TABLET BY l 00:00: MOUTH Jimmy 00 DAILY OCUVITE EYE 2012-02 Yes Memori a + MULTI 2-13 l TABS 00:00: Jimmy 00 COQ10 CAPS 2012-02 Yes Memoria 2-13 l 00:00: [place] 00 ASPIRIN 81 2012-02 Yes Memoria MG TABS 2-13 l 00:00: [place] 00 FLOMAX 0.4 2012-02 Yes one every Me moria MG CAPS 2-13 evening. l 00:00: Jimmy 00 LUNESTA 3 2012-02 Yes TAKE 1 Memori a MG TABS 2-13 TABLET BY l 00:00: MOUTH [place] 00 DAILY LUNESTA 3 2012-02 Yes TAKE 1 Memori a MG TABS 2-13 TABLET BY l 00:00: MOUTH [place] DAILY FLOMAX 0.4 2012-02 No one every Me moria MG CAPS 2-13 evening. l 00:00: [place] 00 PLAVIX 75 2012-02 No TAKE 1 Memori a MG TABS 2-13 TABLET BY l 00:00: MOUTH Jimmy 00 DAILY OCUVITE EYE 2012-02 Yes Memori a + MULTI 2-13 l TABS 00:00: Jimmy 00 COQ10 CAPS 2012-02 Yes Memoria 2-13 l 00:00: [place] 00 ASPIRIN 81 2012-02 Yes Memoria [...] TABS 2-13 TABLET BY l 00:00: MOUTH [place] 00 DAILY FLOMAX 0.4 2012-02 No one every Me moria MG CAPS 2-13 evening. l 00:00: [place] 00 FLUTICASONE Yes 1 spray in Memoria [...] administered pneumococcal 2007-06-14 Completed [facility] immunization 14:23:57 [place] administered pneumococcal 2007-06-14 Completed [facility] immunization 14:23:57 Jimmy administered hepatitis B vaccine 2006-04-11 Completed Memor ial #3 15:23:57 Jimmy hepatitis B vaccine 2006-04-11 Completed Memor ial #3 15:23:57 Jimmy chicken pox 2006-03-20 Completed [facility] immunization #1 15:23:57 Jimmy chicken pox 2006-03-20 Completed [facility] immunization #1 15:23:57 [place] hepatitis B vaccine 2006-03-15 Completed Memor ial [...] Name Observation Time Observation Value Comments Source WEIGHT 2021-12-11 21:00:00 91 kg HEIGHT 2021-12-09 17:00:00 172.7 cm WEIGHT 2021-12-09 17:00:00 81.647 kg WEIGHT 2021-12-11 21:00:00 91 kg HEIGHT 2021-12-09 17:00:00 172.7 cm WEIGHT 2021-12-09 17:00:00 81.647 kg WEIGHT 2021-12-11 21:00:00 91 kg HEIGHT 2021-12-09 17:00:00 172.7 cm WEIGHT 2021-12-09 17:00:00 81.647 kg Heart rate 2021-05-15 14:59:00 72 /min [facility]3] Body height 2021-05-15 14:59:00 172.7 cm [facility] Systolic blood 2021-05-15 14:59:00 138 mm[Hg] [facility] pressure Medicine Diastolic blood 2021-05-15 14:59:00 74 mm[Hg] [facility] pressure Medicine Systolic blood 2019-11-19 15:57:00 146 mm[Hg] [facility] pressure Medicine Diastolic blood 2019-11-19 15:57:00 72 mm[Hg] [facility] pressure Medicine Heart rate 2019-11-19 15:57:00 91 /min [facility]3] Body height 2019-11-19 15:57:00 172.7 cm [facility] Body weight 2019-11-19 15:57:00 83.462 kg [facility] BMI 2019-11-19 15:57:00 27.98 kg/m2 [facility] Systolic blood 2019-11-19 15:57:00 146 mm[Hg] [facility] Medicine Diastolic blood 2019-11-19 15:57:00 72 mm[Hg] [facility] Medicine Heart rate 2019-11-19 15:57:00 91 /min [facility] ollege of [facility] Body height 2019-11-19 15:57:00 172.7 cm [facility] Body weight 2019-11-19 15:57:00 83.462 kg [facility] BMI 2019-11-19 15:57:00 27.98 kg/m2 [facility] Systolic blood 2019-11-12 01:28:00 126 mm[Hg] [facility] pressure [facility] Diastolic blood 2019-11-12 01:28:00 63 mm[Hg] Unive rsity [facility] pressure [facility] Heart rate 2019-11-12 01:28:00 84 /min [facility] [place] Respiratory rate 2019-11-12 01:28:00 20 /min Univ ers[facility] Oxygen saturation in 2019-11-12 01:28:00 100 /min University of Arterial blood by [facility] Pulse oximetry Branch Systolic blood 2019-11-12 01:00:00 142 mm[Hg] [facility]iver [facility] pressure [facility] Diastolic blood 2019-11-12 01:00:00 71 mm[Hg] Unive rsity of pressure [facility] Heart rate 2019-11-12 01:00:00 84 /min [facility] Respiratory rate 2019-11-12 01:00:00 14 /min [facility] Oxygen saturation in 2019-11-12 01:00:00 99 /min [facility] Arterial blood by [facility] Pulse oximetry Branch Body temperature 2019-11-11 22:21:00 36.61 Pat [facility] Body weight 2019-11-11 22:21:00 85 kg [facility] Systolic blood 2019-11-12 01:28:00 126 mm[Hg] [facility] pressure [facility] Diastolic blood 2019-11-12 01:28:00 63 mm[Hg] Unive [facility]ity of pressure [facility] Heart rate 2019-11-12 01:28:00 84 /min [facility]i ty of [facility] Respiratory rate 2019-11-12 01:28:00 20 /min [facility] O[facility] saturation in 2019-11-12 01:28:00 100 /min University of Arterial blood by [facility] Pulse oximetry Branch Systolic blood 2019-11-12 01:00:00 142 mm[Hg] Univer sity of pressure [facility] Diastolic blood 2019-11-12 01:00:00 71 mm[Hg] Unive rsity of pressure [facility] Heart rate 2019-11-12 01:00:00 84 /min Universi ty of [facility] Respiratory rate 2019-11-12 01:00:00 14 /min [facility] Oxygen saturation in 2019-11-12 01:00:00 99 /min [facility] Arterial blood by [facility] Pulse oximetry Branch Body temperature 2019-11-11 22:21:00 36.61 Pat [facility] Body weight 2019-11-11 22:21:00 85 kg [facility] Systolic blood 2021-12-12 07:00:00 134 mm[Hg] [facility] Diastolic blood 2021-12-12 07:00:00 53 mm[Hg] [facility] Heart rate 2021-12-12 07:00:00 50 /min [facility] Body temperature 2021-12-12 07:00:00 36.67 Pat [facility] Respiratory rate 2021-12-12 07:00:00 18 /min [facility] Oxygen saturation in 2021-12-12 07:00:00 93 /min [facility] Arterial blood by Medical nter Pulse oximetry Body weight 2021-12-11 21:00:00 91 kg [facility] BMI 2021-12-11 21:00:00 30.50 kg/m2 [facility] Body height 2021-12-09 17:00:00 172.7 cm [facility] Systolic blood 2021-06-15 17:41:09 176 mm[Hg] [facility] Di[facility] blood 2021-06-15 17:41:09 70 mm[Hg] [facility] [place] pressure Heart rate 2021-06-15 17:41:09 70 /min [facility] Body temperature 2021-06-15 17:41:09 36.89 Pat [facility] Respiratory rate 2021-06-15 17:41:09 18 /min [facility] Oxygen saturation in 2021-06-15 17:41:09 97 /min [facility] Arterial blood by Pulse oximetry Body height 2021-06-12 21:25:00 172.7 cm [facility] Body weight 2021-06-12 21:25:00 86.183 kg [facility] BMI 2021-06-12 21:25:00 28.89 kg/m2 [facility] Body height 2020-04-27 20:44:00 172.7 cm [facility] Body weight 2020-04-27 20:44:00 84.369 kg [facility] BMI 2020-04-27 20:44:00 28.28 kg/m2 [facility] Systolic blood 2020-03-26 14:44:51 139 mm[Hg] [facility] pressure Diastolic blood 2020-03-26 14:44:51 66 mm[Hg] [facility] [place] pressure Heart rate 2020-03-26 14:44:51 80 /min [facility] Body temperature 2020-03-26 14:44:51 36 Pat [facility] Respiratory rate 2020-03-26 14:44:51 19 /min [facility] Oxygen saturation in 2020-03-26 14:44:51 96 /min [facility] Arterial blood by Pulse oximetry Height 2014-02-18 15:55:42 [facility] Jimmy Weight 2014-02-18 15:55:42 [facility] [place] Temperature Oral (F) 2014-02-18 15:55:42 97.5 F [facility] Jimmy Heart Rate 2014-02-18 15:55:42 [facility] Jimmy Systolic (mm Hg) 2014-02-18 15:55:42 Andres rial Jimmy Diastolic (mm Hg) 2014-02-18 15:55:42 Mem orial Jimmy Weight 2013-01-23 19:53:21 [facility] Jimmy Temperature Oral (F) 2013-01-23 19:53:21 97.6 F [facility] Jimmy Heart Rate 2013-01-23 19:53:21 Lino Jimmy Height 2013-01-23 19:53:21 Lino Jimmy Systolic (mm Hg) 2013-01-23 19:53:21 Andres Whitlockann Diastolic (mm Hg) 2013-01-23 19:53:21 [facility] orial [place] Procedures Procedure Date / Time Performing Source Performed Clinician CBC W/PLT COUNT & AUTO 2021-12-12 DonellNeeru Aleks [facility] DIFFERENTIAL 04:59:00 [place] BASIC METABOLIC PANEL 2021-12-12 Vanda Marleyna Aleks [facility] Medical 04:59:00 [place] CBC W/PLT COUNT & AUTO 2021-12-12 [facility] 04:59:00 [place] HEMODIALYSIS INPATIENT 2021-12-11 Barak Pérez [facility] 21:00:00 [place] ECG 12-LEAD 2021-12-11 Margarette, Hoonmo Tremayne [facility] ical 15:07:30 [place] ECG 12-LEAD 2021-12-11 Unknown, Hl7 Doctor [facility] 15:07:[address] ABDOMEN/PELVIS WITHOUT 2021-12-11 [facility] IV CONTRAST 14:20:00 [place] CBC W/PLT COUNT & AUTO 2021-12-11 DonellVandana Aleks [facility] DIFFERENTIAL 05:12:00 [place] BASIC METABOLIC PANEL 2021-12-11 DonellNeeru Aleks [facility] L [facility] Medical 05:12:00 [place] HEPATITIS B SURFACE 2021-12-11 Barak Pérez [facility] ANTIGEN 05:12:00 [place] CBC W/PLT COUNT & AUTO 2021-12-11 DonellNeeru Aleks [facility] DIFFERENTIAL 05:12:00 [place] C-REACTIVE PROTEIN 2021-12-10 Onyirioha, Kristeen [facility] 11:32:00 [facility] PHOSPHORUS 2021-12-10 Barak Pérez [facility] 11:32:00 [place] SARS-COV2/RT-PCR ([facility] & 2021-12-[address] [facility] REF LABS) 10:07:00 [place] CBC W/PLT COUNT & AUTO 2021-12-10 Neeru Marley [facility] Medical DIFFERENTIAL 04:26:00 [place] BASIC METABOLIC PANEL 2021-12-10 DonellVandana Aleks [facility] Medical 04:26:00 [place] CBC W/PLT COUNT & AUTO 2021-12-10 Neeru Marley [facility] DIFFERENTIAL 04:26:00 [place] HEMOGLOBIN AND HEMATOCRIT 2021-12-09 [facility] 18:47:00 Center TYPE AND SCREEN, AUTOMATED 2021-12-09 [facility] 18:47:00 Center XR CHEST 2 VW 2021-09-15 Requisition, Paper [facility] 16:09:00 Medical Branch ASSIGNMENT OF BENEFITS 2021-09-15 Doctor Unassigned, [facility] 15:42:19 [place] [facility] HEMOGLOBIN & HEMATOCRIT 2021-06-15 [facility] 14:45:00 HEMODIALYSIS 2021-06-15 [facility] 12:31:53 L[facility] HC COMPLETE BLD COUNT 2021-06-15 [facility] W/AUTO DIFF 09:14:00 BASIC METABOLIC PANEL 2021-06-15 [facility] 09:14:00 ESTIMATED GFR [facility]23 [facility] HC COMPLETE BLD COUNT 2021-06-13 Francesca Mac [facility] W/AUTO DIFF 23:02:00 COVID-19 QUALITATIVE 2021-06-13 [facility] ospital RT-PCR 13:31:00 HEPATITIS B SURFACE 2021-06-[address] [facility] ANTIGEN 12:37:00 HC COMPLETE BLD COUNT 2021-06-13 [facility] W/AUTO DIFF 09:33:00 [place] BASIC METABOLIC PANEL 2021-06-13 [facility] 09:33:00 [place] MAGNESIUM LEVEL 2021-06-13 [facility] 09:[facility]00 [place] PARTIAL THROMBOPLASTIN 2021-06-[address] [facility] TIME (PTT) 09:33:00 [place] TROPONIN T 2021-06-13 Niranjan [facility] al 09:33:00 [place] ESTIMATED GFR 2021-06-13 Niranjan [facility] al 09:33:00 [place] TOTAL IRON BINDING 2021-06-13 Ureña [facility] pital CAPACITY 09:33:00 [place] FERRITIN LEVEL 2021-06-13 [facility] ABDOMEN PELVIS WO 2021-06-13 Rachael [facility] CONTRAST 05:03:23 ECG ED PRELIMINARY 2021-06-13 [facility] pital INTERPRETATION 02:34:56 Arturo R. HEMODIALYSIS 2021-06-13 Antony Ross [facility] pital 02:16:04 HC COMPLETE BLD COUNT 2021-06-12 [facility] W/AUTO DIFF 22:50:00 Arturo R. PROTHROMBIN TIME WITH INR 2021-06-12 [facility] 22:50:00 Arturo R. TYPE AND SCREEN 2021-06-12 [facility] 22:50:00 Arturo R. COMPREHENSIVE METABOLIC 2021-06-12 [facility] PANEL 22:50:00 Arturo R. LIPASE LEVEL 2021-06-12 [facility] 22:50:00 Arturo R. ESTIMATED GFR 2021-06-12 [facility] 22:50:00 Arturo R. ECG 12-LEAD 2021-06-12 [facility] 21:49:24 Arturo R. ELECTROCARDIOGRAM COMPLETE 2021-05-15 [facility] of 13:13:49 Medicine ([facility]) NUCLEAR MED SCAN 2021-05-15 [facility] llege of 09:49:10 Medicine ([facility]) SCANNED ORDER 2021-05-15 [facility] ge of 09:49:10 Medicine [id number] 2020-05-24 GRANI [facility] 00:00:00 [facility] [id number] 2020-05-20 GIBJE.01 [facility] 00:00:00 [facility] [id number] 2020-05-20 GIBJE.01 [facility] 00:00:00 [facility] [id number] 2020-05-20 GIBJE.01 [facility] 00:00:00 [facility] [id number] 2020-05-20 SEEGE [facility] 00:00:00 [facility] [id number] 2020-05-16 JUSTINO.03 [facility] 00:00:00 [facility] [id number] 2020-05-14 JUSTINO.03 [facility] 00:00:00 [facility] [id number] 2020-05-11 [facility] 00:00:00 [facility] [place] [id number] 2020-05-11 [facility] 00:00:00 [facility] [place] [id number] 2020-05-11 [facility] 00:00:00 Rehabilitation Ching [id number] 2020-05-11 [facility] 00:00:00 Rehabilitation Ch[place] [id number] 2020-03-30 [facility] 00:00:00 Rehabilitation C jaycob [id number] 2020-03-30 [facility] 00:00:00 Rehabilitation C jaycob [id number] 2020-03-30 [facility] 00:00:00 Rehabilitation C jaycbo [id number] 2020-03-30 [facility] 00:00:00 Rehabilitation C jaycob [id number] 2020-03-30 [facility] 00:00:00 Rehabilitation C jaycob [id number] 2020-03-30 [facility] 00:00:00 Rehabilitation C jeannieress [id number] 2020-03-30 [facility] 00:00:00 Rehabilitation C jaycob [id number] 2020-03-30 [facility] 00:00:00 Rehabilitation C jeannieress [id number] 2020-03-30 [facility] 00:00:00 Rehabilitation C jeannieress [id number] 2020-03-30 [facility] 00:00:00 Rehabilitation C jeannieress [id number] 2020-03-30 [facility] 00:00:00 Rehabilitation C jeanineress [id number] 2020-03-30 [facility] 00:00:00 Rehabilitation C ypress [id number] 2020-03-30 [facility] 00:00:00 Rehabilitation C ypress [id number] 2020-03-30 [facility] 00:00:00 Rehabilitation C ypress [id number] 2020-03-30 [facility] 00:00:00 Rehabilitation C ypress [id number] 2020-03-30 [facility] 00:00:00 Rehabilitation C ypress [id number] 2020-03-30 [facility] 00:00:00 Rehabilitation C ypress [id number] 2020-03-30 [facility] 00:00:00 Rehabilitation C ypress [id number] 2020-03-30 [facility] 00:00:00 Rehabilitation C ypress [id number] 2020-03-30 [facility] 00:00:00 Rehabilitation C ypress [id number] 2020-03-30 [facility] 00:00:00 Rehabilitation C ypress [id number] 2020-03-30 [facility] 00:00:00 Rehabilitation C ypress HC COMPLETE BLD COUNT 2020-03-25 [facility] W/AUTO DIFF 10:45:00 Obi BASIC METABOLIC PANEL 2020-03-25 [facility] 10:00:00 Obi ESTIMATED GFR 2020-03-25 [facility] al 10:00:00 Obi HEMODIALYSIS 2020-03-24 Maldonado Cas[facility] 22:39:54 Deepak HC COMPLETE BLD COUNT 2020-03-24 [facility] W/AUTO DIFF 11:00:00 Obi BASIC METABOLIC PANEL 2020-03-24 [facility] 10:00:00 Obi ESTIMATED GFR 2020-03-24 [facility] al 10:00:00 Obi US CAROTID DUPLEX 2020-03-23 Bear [facility]e [facility] BILATERAL 18:31:05 BASIC METABOLIC PANEL 2020-03-23 [facility] 09:20:00 Obi HC COMPLETE BLD COUNT 2020-03-23 [facility] W/AUTO DIFF 09:20:00 Obi ESTIMATED GFR 2020-03-23 [facility] al 09:20:00 Obi POC GLUCOSE 2020-03-22 [facility] al 22:27:00 Obi HEMODIALYSIS 2020-03-22 [place], Romy [facility] 22:13:20 Tabitha ANAEROBIC CULTURE 2020-03-22 [place], [facility] ital 20:52:00 FUNGUS CULTURE 2020-03-22 [place] 20:52:00 AFB STAIN 2020-03-22 [place] 20:52:00 AEROBIC CULTURE 2020-03-22 [place] 20:52:00 FUNGUS SMEAR 2020-03-22 [place], [facility] 20:52:00 ANAEROBIC CULTURE 2020-03-22 [place], [facility] 20:50:00 FUNGUS CULTURE 2020-03-22 [place] 20:50:00 AFB STAIN 2020-03-22 [place] 20:50:00 AEROBIC CULTURE 2020-03-22 [place] 20:50:00 GRAM STAIN 2020-03-22 [place] SURGICAL PATHOLOGY REQUEST 2020-03[facility]22 [facility] 20:30:00 Obi AFB CULTURE 2020-03-22 [place] 19:52:00 AFB CULTURE 2020-03-22 [place] 19:50:00 OR FL < 1 HOUR 2020-03-22 [place] 19:30:00 [place] AN ELECTIVE 2020-03-22 [facility] ENDOTRACHEAL AIRWAY 19:25:28 AMPUTATION, ABOVE KNEE 2020-03-22 [facility] 18:47:00 POC GLUCOSE 2020-03-[address] [facility] 15:07:00 Obi HC COMPLETE BLD COUNT 2020-03-22 [facility] W/AUTO DIFF 12:45:00 TYPE AND SCREEN 2020-03-22 [facility] 12:45:00 VANCOMYCIN LEVEL, RANDOM 2020-03-22 [facility] 10:00:00 Yasser BASIC METABOLIC PANEL 2020-03-22 [facility] 10:00:00 Obi ESTIMATED GFR 2020-03-22 [facility]00 Obi LIPID PANEL 2020-03-22 Bear Mariee [facility] 10:00:00 HEPATITIS B SURFACE 2020-03-21 Kumar Ayala H ospital ANTIGEN 14:22:00 PROTHROMBIN TIME WITH INR 2020-03-21 [facility] 12:15:00 PARTIAL THROMBOPLASTIN 2020-03-21 [facility] TIME (PTT) 12:15:00 BASIC METABOLIC PANEL 2020-03-21 [facility] 12:15:00 CBC WITH PLATELET AND 2020-03-21 [facility] DIFFERENTIAL 12:15:00 VANCOMYCIN LEVEL, RANDOM 2020-03-21 [facility] 12:15:00 Yasser ESTIMATED GFR 2020-03-21 [facility]ital 12:15:00 Yasser HEMODIALYSIS 2020-03-[address] 06:05:17 VANCOMYCIN LEVEL, RANDOM 2020-03-20 [facility] 20:54:00 Yasser BASIC METABOLIC PANEL 2020-03-20 [facility] 11:30:00 Obi ESTIMATED GFR 2020-03-20 [facility] al 11:30:00 Obi TTE COMPLETE, W CONTRAST, 2020-03-19 [facility] W DOPPLER ([id number]) 18:00:00 [place] HC COMPLETE BLD COUNT 2020-03-[address] [facility] W/AUTO DIFF 10:14:00 MRI KNEE WO CONTRAST RIGHT 2020-03-19 [facility] 09:38:00 [place] MRI THIGH WO CONTRAST 2020-03-19 [facility] RIGHT 08:52:00 [place] MRI LOWER EXTREMITY WO 2020-03-19 [facility] CONTRAST RIGHT 08:07:00 Ryan BASIC METABOLIC PANEL 2020-03-19 [facility] 07:01:00 ESTIMATED GFR 2020-03-19 [facility] Hospit al 07:01:00 LACTIC ACID LEVEL 2020-03-19 [facility] Hosp ital 07:01:00 LACTIC ACID LEVEL, SEPSIS 2020-03-19 [facility] - NOW AND REPEAT 2X EVERY 01:46:00 [place] 3 HOURS BLOOD CULTURE, AEROBIC & 2020-03-18 [facility] ANAEROBIC 23:22:00 [place] COVID-19 QUALITATIVE 2020-03-18 Fer [facility] ospital RT-PCR 23:22:00 [place] HC COMPLETE BLD COUNT 2020-03-18 [facility] W/AUTO DIFF 23:16:00 [place] PROTHROMBIN TIME WITH INR 2020-03-18 [facility] 23:16:00 [place] PARTIAL THROMBOPLASTIN 2020-03-18 [facility] TIME (PTT) 23:16:00 [place] TYPE AND SCREEN 2020-03-18 [facility] 23:16:00 [place] COMPREHENSIVE METABOLIC 2020-03-18 [facility] 23:16:00 [place] LACTIC ACID LEVEL, SEPSIS 2020-03-18 Fer [facility] - NOW AND REPEAT 2X EVERY 23:16:00 [place] 3 HOURS C-REACTIVE PROTEIN 2020-03-18 [facility] 23:16:00 [place] SEDIMENTATION RATE 2020-03-[address] [facility] pital 23:16:00 [place] ESTIMATED GFR 2020-03-18 Fer Irais [facility] 23:16:00 [place] BLOOD CULTURE, AEROBIC & 2020-03-18 [facility] [place] ANAEROBIC 23:16:00 [place] URINE CULTURE 2020[facility]03[facility]18 [facility] [place] URINALYSIS SCREEN AND 2020-03-18 [facility] MICROSCOPY, WITH REFLEX TO 23:10:00 [place] CULTURE XR KNEE 1 OR 2 VW RIGHT 2020-03-18 [facility] 23:03:39 [place] XR TIBIA FIBULA 2 VW RIGHT 2020-03-18 [facility] 23:03:04 [place] URINALYSIS 2019-11-11 [facility] xa 23:48:00 Medical Branch XR CHEST 1 VW 2019-11-11 [facility] xas 23:02:37 Medical Branch MAGNESIUM 2019-11-11 [facility] xas 22:43:00 Medical Branch COMP. METABOLIC PANEL 2019-11-11 [facility] ([id number]) 22:43:00 Medical Branch CBC WITH DIFF 2019-11-11 [facility] xa 22:43:00 Medical Branch TROPONIN I 2019-11-11 [facility] xas 22:43:00 Medical Branch EKG-12 LEAD 2019-11-11 [facility] xa 22:40:13 Medical Branch Plan of Care Planned Activity Planned Date Details Comments Source Future Scheduled 2021-12-15 HEPATITIS B VACCINES (1 [facility] 11:14:19 of 3 - 3-dose series) Hospit al [code = HEPATITIS B VACCINES (1 of 3 - 3-dose series)] Future Scheduled 2021-12-15 65+ PNEUMOCOCCAL Methodi [facility] Test 11:14:19 VACCINE (1 - PCV) [code Hosp ital = 65+ PNEUMOCOCCAL VACCINE (1 - PCV)] Future Scheduled 2021-12-15 SHINGLES VACCINES (1 of [facility] 11:14:19 2) [code = SHINGLES Hospital VACCINES (1 of 2)] Future Scheduled 2021-12-15 [facility]ONOSCOPY SCREENING [facility] 11:14:19 [code = COLONOSCOPY Hospital SCREENING] Future Scheduled 2021-12-15 COVID-19 VACCINE (3 - [facility] 11:14:19 Booster for Pfizer Hospital series) [code = COVID-19 VACCINE (3 - Booster for Pfizer series)] Future Scheduled 2021-12-15 INFLUENZA VACCINE [code [facility] 11:14:19 = INFLUENZA VACCINE] Hospita l Future Scheduled 2021-10-27 HEPATITIS B VACCINES (1 [facility] 04:11:20 of 3 - 3-dose series) Hospit al [code = HEPATITIS B VACCINES (1 of 3 - 3-dose series)] Future Scheduled 2021-10-27 65+ PNEUMOCOCCAL Methodi [facility] Test 04:11:20 VACCINE (1 - PCV) [code Hosp ital = 65+ PNEUMOCOCCAL VACCINE (1 - PCV)] Future Scheduled 2021-10-27 SHINGLES VACCINES (1 of [facility] 04:11:20 2) [code = SHINGLES Hospital VACCINES (1 of 2)] Future Scheduled 2021-10-27 [facility]ONOSCOPY SCREENING [facility] 04:11:20 [code = COLONOSCOPY Hospital SCREENING] Future Scheduled 2021-10-27 COVID-19 VACCINE (3 - [facility] Test 04:11:20 Booster for Pfizer Hospital series) [code = COVID-19 VACCINE (3 - Booster for Pfizer series)] Future Scheduled 2021-10-27 INFLUENZA VACCINE [code [facility] 04:11:20 = INFLUENZA VACCINE] Hospita l Future Scheduled 2021-10-12 INFLUENZA VACCINE (#1) [facility] 00:[facility]00 [code = INFLUENZA Medical Ce nter VACCINE (#1)] Future Scheduled 2021-05-15 Screening for malignant [facility] Test 12:13:46 neoplasm of colon of Medicin e (procedure) [code = 483184709] Future Scheduled 2021-05-15 COVID-19 Vaccine (1) [facility] Test 12:13:46 [code = COVID-19 of Medicine Vaccine (1)] Future Scheduled 2021-05-15 TETANUS SHOT (ADULT) [facility] Test 12:13:46 [code = TETANUS SHOT of Medi cine (ADULT)] Future Scheduled 2021-05-15 BMI FOLLOW UP PLAN [facility] Test 12:13:46 [code = BMI FOLLOW UP of Med icine PLAN] Future Scheduled 2021-05-15 Hepatitis C screening [facility] Test 12:13:46 (procedure) [code = of Medic ine [id number]] Future Scheduled 2021-05-15 ZOSTER VACCINE (1 of 2) [facility] Test 12:13:46 [code = ZOSTER VACCINE [...] 2021-05-15 FLU VACCINE > 6 MONTHS [facility] Test 12:13:46 [code = FLU VACCINE > 6 of M edicine MONTHS] Future Scheduled 2021-05-15 ELECTROCARDIOGRAM [facility] Test 10:00:47 COMPLETE [code = 89336] of M edicine Diagnostic Test 2021-05-15 MYOCARD PERFUSION - Expected: Salvador r Broussard Pending 00:00:00 LEXISCAN [code = 29859] 05/15/2021, of M edicine Expires: 11/14/2022 Diagnostic Test 2021-05-15 ECHO, COMPLETE [code = Expected: Chaim luisa Broussard Pending 00:00:00 [id number]] 05/15/2021, of Medicine Expires: 11/14/2021 Future Scheduled 2021-02-11 FALLS RISK SCREENING [facility] Test 00:00:00 [code = FALLS RISK Medical C enter SCREENING] Future Scheduled 2011-10-[address] [facility] Test 00:00:00 WELLNESS (YEAR 2 or Medical Center FIRST YEAR if no IPPE) [code = MEDICARE ANNUAL WELLNESS (YEAR 2 or FIRST YEAR if no IPPE)] Future Scheduled 1995-11-10 SHINGLES VACCINES ([address] [facility] Test 00:00:00 2) [code = SHINGLES Medical Center VACCINES (1 of 2)] Future Scheduled 1964 DTAP/TDAP/TD [facility]ACCINES [facility] Test 00:00:00 (1 - Tdap) [code = Medical C enter DTAP/TDAP/TD VACCINES (1 - Tdap)] Future Scheduled 1963-11-10 HEPATITIS C [facility]CREENING [facility] Test 00:00:00 [code = HEPATITIS C Medical Center SCREENING] Future Scheduled 1951-11-10 PNEUMOCOCCAL 65+ YRS ([address] [facility] Test 00:00:00 - PCV) [code = Medical Cente r PNEUMOCOCCAL 65+ YRS (1 - PCV)] Future Scheduled 1946-05-09 COVID-19 VACCINE (#1[facility] 00:00:00 [code = COVID-[address] VACCINE (#1)] Future Scheduled ELECTROCARDIOGRAM [facility] Test COMPLETE [code = 51229] of M edicine Future Scheduled COLON CANCER SCREENING: [facility] Test COLONOSCOPY [code = of Medic ine COLON CANCER SCREENING: COLONOSCOPY] Future Scheduled TETANUS SHOT (ADULT) [employer] Test [code = TETANUS SHOT of Medi cine (ADULT)] Future Scheduled BMI FOLLOW UP PLAN [employer] Test [code = BMI FOLLOW UP of Med icine PLAN] Future Scheduled HEPATITIS C SCREENING [facility] [employer] Test [code = HEPATITIS C of Medic ine SCREENING] Future Scheduled ZOSTER VACCINE (1 of 2) [facility] Test [code = ZOSTER VACCINE of Me dicine (1 of 2)] Future Scheduled FALL SCREEN [code = [facility] FALL SCREEN] of Medicine Future Scheduled PNEUMOVAX >=65 (PPSV23) [facility] Test [code = PNEUMOVAX >=65 of Me dicine (PPSV23)] Future Scheduled MEDICARE AWV (Initial) [employer] Test [code = MEDICARE AWV of Medi cine (Initial)] Future Scheduled FLU VACCINE > 6 MONTHS [employer] Test [code = FLU VACCINE > 6 of edicine MONTHS] Future Scheduled 65+ PNEUMOCOCCAL Methodi [...] EVENT MONITOR [code = 1 Occurrences B [facility] Test 71355] starting of Medicine 11/19/2019 until 02/17/2020 Encounters Start End Encounter Admission Attending Care Care Encounter Source Date/Time Date/Time Type Type Clinicians Facility Department ID 2021-03-09 Outpatient 3 [id number] ENCPL BIT [facility] 11:54:24 0407 [facility] [place] 2021-03-09 Outpatient 3 [id number] ENCPL REF [facility] 11:53:41 0406 [facility] [place] 2021-03-09 Outpatient 3 [id number] ENCPL REF [facility] 11:50:56 0329 [facility] [place] 2021-03-09 Outpatient 3 DOLLYCRMICHELLE AML [id number] [facility] 11:34:54 IGNAZIO 81401 [facility] [place] 2021-03-09 Outpatient 3 [id number] ENCPL REF [facility] 11:33:20 0212 [facility] [place] 2021-03-09 Outpatient 3 [id number] ENCPL REF [facility] 11:32:52 0211 [facility] [place] 2021-03-09 Outpatient 3 [id number] ENCPL REF [facility] 11:32:32 0210 [facility] [place] 2020 Outpatient Provider, CHRISTIAN GONZALES [id number] [facility] 10:29:00 Undefined 34 [facility] 2020 Inpatient KEVIN CurtisCL [facility]L [id number] [facility] 10:29:00 Sekou 19 [facility] 2020 Inpatient Srinivas HCACL HCACL [id number] [facility] 10:28:59 Fausto 61 [facility] 2020-06-07 Inpatient UR KEVIN CurtisCL [facility]ACL [id number] [facility] 18:10:16 Sekou 19 [facility] 2020-05-16 [facility] [id number] [facility] 06:04:26 61 [facility] 2020-03-26 Inpatient 3 ZINA Villafuerte AML [id number] [facility] 12:00:00 Chaya Locke3 [facility] [place] 2021-12-09 2021-12-12 Inpatient ER [facility] [id number] SLE 16:00:00 10:59:00 NEERU Med 2021-12-09 2021-12-12 [facility] [id number] 16:00:00 10:59:00 Encounter [facility] 2021-12-11 2021-12-[address] [facility] [id number] 00:00:00 00:00:00 Only [facility] 2021-12-09 2021-12-09 Travel [facility] [id number] [facility] 00:[facility]00 00:00:00 [facility] 2021-12-09 2021-12-09 [id number] [facility]-09[facility]15 2021-09-15 Outpatient R RADIOLOGY [facility] [id number] Univers 10:45:54 23:59:00 ity of [facility] 2021-09-15 2021-09-15 Hospital Radiology [facility] 1.2.840.114 [id number] Univers 10:45:00 23:59:00 Encounter ZAYDA 350.1.13.10 ity of [place] 4.2.7.2.686 [facility] [id number] [facility] 807 Branch 2021-09-15 2021-09-15 Orders Doctor PENELOPE 1.2.840.114 [id number] Univers 00:00:00 00:00:00 Only Unassigned, ROSE MARY 350.1.13.10 ity of [place] [facility] 4.2.7.2.686 [facility] [id number] [facility] 009 Branch 2021-08-09 2021-08-09 Telemedici Brant 1.2.840.1 [id number] Methodi 13:00:00 13:08:06 [address] Maddy [address]67.1.[address] 3.430.2.7 Hospit a .3.814396 l .8 2021-08-09 2021-08-09 Telemedicantonella Guo, 1.2.840.1 [id number] [id number] Methodi 13:00:00 13:08:06 ne Maddy 56981.1.[address] 3.430.2.7 Hospit a .3.238086 l .8 2021-07-31 2021-08-01 Outpatient WILLCAMILA [facility] [id number] [facility] 16:42:10 08:16:24 SVETLANA bravo of Medicin e 2021-06-12 2021-06-15 [facility]84 0.1 [id number] Methodi 16:33:00 15:42:00 Encounter Svetlana Cano 13366.1.[address] Aj, Turab 3.430.2.7 Ho spita .3.229864 l .8 2021-06-12 2021-06-15 [facility] 1.2.84 0.1 [id number] Methodi 16:33:00 15:42:00 Encounter Svetlana Cano 75898.1.[address] Aj, Turab 3.430.2.7 Ho spita .3.972326 l .8 2021-05-25 2021-05-25 Outpatient [facility] [id number] [facility] 08:47:29 16:40:23 [place] e of Medicin e 2021-05-25 2021-05-25 Outpatient SULAIMAN [facility] [id number] [facility] 08:52:28 14:12:09 LOVE bravo of Medicin e 2021-05-15 2021-05-15 Office DELMY KENNY 1.2.152.621 [id number] [facility] 09:49:10 10:49:30 Visit SVETLANA AMBULATOR 350.1.13.21 College Y 0.2.7.2.686 of [id number] Medi sky 300 e 2021-03-29 2021-03-29 Telephone Jaime, 1.2.840.6 [id number] Methodi 00:00:00 00:00:[address] 3.430.2.7 Hospit a .3.322960 l .8 2021-03-29 2021-03-29 Telephone Jaiem, 1.2.840.8 [id number] Methodi 00:00:00 00:00:[address] 3.430.2.7 Hospit a .3.758477 l .8 2020-12-07 2020-12-07 Outpatient [facility] [id number] [place] 00:00:00 00:00:00 MADDY [address] 2020-10-01 2020-10-06 Inpatient [facility] 012 [id number] 25 [place] 00:00:00 00:00:00 SANDRA [address] 2020-05-13 2020-05-13 Outpatient TORI [facility] [id number] [facility] 01:23:22 01:23:22 CHAYA 34 [facility] 2020-04-27 2020-04-27 Telemedici UshaObi 1.2.840.1 [id number] Methodi 15:36:30 16:10:[address]1.[address] 3.430.2.7 Hospit a .3.380388 l .8 2020-04-27 2020-04-27 Travel 1.2.840.1 1.2.427.937 5829 [id number] Methodi 00:00:00 00:00:[address] 3.430.2.7 0.2.7.3.698 Ho spita .3.440005 084.8 l .8 2020-04-26 2020-04-26 Travel 1.2.840.1 1.2.145.261 9853 [id number] Methodi 00:00:00 00:00:[address] 3.430.2.7 0.2.7.3.698 Ho spita .3.166343 084.8 l .8 2020-04-13 2020-04-18 [facility] [id number] [id number] Methodi 11:45:02 00:23:05 Visit Archie 10828.1.[address] 3.430.2.7 Hospit a .3.439859 l .8 2020-04-13 2020-04-13 Travel 1.2.840.1 1.2.258.530 0981 [id number] Methodi 00:00:00 00:00:[address] 3.430.2.7 0.2.7.3.698 Ho spita .3.375075 084.8 l .8 2020-04-05 2020-04-05 Abstract Sugar 1.2.840.1 [id number] Methodi 00:00:00 00:00:[address] 3.430.2.7 Hospit a .3.428213 l .8 2020-04-04 2020-04-04 [facility] [id number] Methodi 13:34:38 14:35:21 Visit Archie 58959.1.[address] 3.430.2.7 Hospit a .3.195125 l .8 2020-04-04 2020-04-04 Travel 1.2.840.1 1.2.147.329 1316 [id number] Methodi 00:00:00 00:00:[address] 3.430.2.7 0.2.7.3.698 Ho spita .3.477761 084.8 l .8 2020-04-01 2020-04-01 Orders Sugar, 1.2.840.1 [id number] [id number] Methodi 00:00:00 00:00:00 Only Emilee [address]8499.1.[address] 3.430.2.7 Hospit a .3.346383 l .8 2020-04-01 2020-04-01 Travel 1.2.840.1 1.2.539.185 5314 706339 Methodi 00:00:00 00:00:[address] 3.430.2.7 0.2.7.3.698 Ho spita .3.814373 084.8 l .8 2020-03-18 2020-03-26 [facility].2.840 .1 [id number] Methodi 15:51:00 11:35:00 Encounter Clint King 78102.1.[address] Kristopher Forman 3.430.2.7 Hos imelda .3.806869 l .8 2020-03-22 2020-03-22 Anesthesia Liu Mccloud 1.2.840.1 [id number] Methodi 12:47:00 16:31:00 Event Clint Graham 91087.1.[address] 3.430.2.7 Hospit a .3.596449 l .8 2020-03-22 2020-03-22 Surgery Obi Kerr 1.2.840.1 [id number] 253 [id number] Methodi 12:53:00 14:38:[address] 3.430.2.7 Hospit a .3.771615 l .8 2019-11-19 2019-11-19 Office CHELSEA York 1.2.840.[id number] [place] [address] 10:50:53 15:23:52 Visit Oswald S AMBULATOR 350.1.13.21 College Y 0.2.7.2.686 of [id number] [facility] 300 e 2019-11-19 2019-11-19 Office CHELSEA York 1.2.840.114 [id number] 10:50:53 15:23:52 Visit Oswald S AMBULATOR 350.1.13.21 Y 0.2.7.2.686 [id number] 300 2019-11-11 2019-11-11 Emergency Wanda Pickens [facility] 1.2.840.114 [id number] 17:16:00 22:21:00 Lisa Pineda 350.1.13.10 [place] 4.2.7.2.686 [place] [id number] [facility] 2019-11-11 2019-11-11 Emergency Wanda Pickens [facility] 1.2.840.114 [id number] Univers 17:16:00 22:21:00 Lisa Pineda 350.1.13.10 i ty of [place] 4.2.7.2.686 [facility] [id number] [place] [address] Branch 2019-11-11 2019-11-11 Emergency X Wanda PICKENS [facility] ERT [id number] Univers 17:16:00 17:16:00 ity [facility] 2019-11-03 2019-11-03 Telephone Melany, 1.2.840.1 [id number] Methodi 09:01:34 09:25:16 Consult Liss Baxter 10306.1.[address] 3.430.2.7 Hospit a .3.320397 l .8 2014-02-18 2014-02-18 Office [facility] [id number] Memoria 00:00:00 00:00:00 Visit artie Marquez [id number] [facility] 2014-02-18 2014-02-18 Lab Report [facility] [id number] [id number] Memoria 00:00:00 00:00:00 artie Marquez [id number] madhu [facility] 2013-01-23 2013-01-23 Lab Report [facility] 1702 [id number] Memoria 00:00:00 00:00:00 artie Marquez [id number] [facility] Results Test Description Test Time Test Comments Results Result Comments Source BASIC METABOLIC PANEL 2021-12-12 07:53:52 Test Item Value Reference Range Interpretation Comme nts SODIUM (BEAKER) (test 138 meq/L 136-145 code = 381) POTASSIUM (BEAKER) 4.1 meq/L 3.5-5.1 (test code = 379) CHLORIDE (BEAKER) (test 102 meq/L 98-107 code = 382) CO2 (BEAKER) (test code 24 meq/L 22-29 = 355) BLOOD UREA NITROGEN 18 mg/dL 7-21 (BEAKER) (test code = 354) CREATININE (BEAKER) 3.35 mg/dL 0.57-1.25 H (test code = 358) GLUCOSE RANDOM (BEAKER) 82 mg/dL 70-105 (test code = 652) CALCIUM (BEAKER) (test 8.8 mg/dL 8.4-10.2 code = 697) EGFR (BEAKER) (test 19 mL/min/1.73 sq In terpretation of eGFR values code = 1092) m Stage Descripti on Result G1 Normal or high >=90 G2 Mildly decreased 60-89 G3a Mildly to moderately 45-5 9 G3b Moderately to severely 30- 44 G4 Severly decreased 15-29 G5 Kidney failure <15Repo rted eGFR is based on the CK D-EPI 2020 equation that d oes not use a race coefficien tEstimated GFR is not as accurate as Creatinine Clearance in pr edicting glomerular filt ration rate. Estimated GFR i s not applicable for dialysis zia dang Industrial Hygienist ID - KEIKO BCBC W/PLT COUNT & AUTO [id number] 06:30:27 Test Item Value Reference Range Interpretation Comments WHITE BLOOD CELL COUNT (BEAKER) 7.4 K/ L 3.5-10.5 (test code = 775) RED BLOOD CELL COUNT (BEAKER) 3.59 M/ L 4.63-6.08 L (test code = 761) HEMOGLOBIN (BEAKER) (test code = 10.4 GM/DL 13.7-17.5 L 410) HEMATOCRIT (BEAKER) (test code = 32.2 % 40.1-51.0 L 411) MEAN CORPUSCULAR VOLUME (BEAKER) 90 fL 79-92 (test code = 753) MEAN CORPUSCULAR HEMOGLOBIN 29.0 pg 25.7-32.2 (BEAKER) (test code = 751) MEAN CORPUSCULAR HEMOGLOBIN CONC 32.3 GM/DL 32.3-36.5 (BEAKER) (test code = 752) RED CELL DISTRIBUTION WIDTH 16.2 % 11.6-14.4 H (BEAKER) (test code = 412) PLATELET COUNT (BEAKER) (test 295 K/CU MM 150-450 code = 756) MEAN PLATELET VOLUME (BEAKER) 8.9 fL 9.4-12.4 L (test code = 754) NUCLEATED RED BLOOD CELLS 0 /100 WBC 0-0 (BEAKER) (test code = 413) NEUTROPHILS RELATIVE PERCENT 74 % (BEAKER) (test code = 429) LYMPHOCYTES RELATIVE PERCENT 7 % (BEAKER) (test code = 430) MONOCYTES RELATIVE PERCENT 12 % (BEAKER) (test code = 431) EOSINOPHILS RELATIVE PERCENT 6 % (BEAKER) (test code = 432) BASOPHILS RELATIVE PERCENT 0 % (BEAKER) (test code = 437) NEUTROPHILS ABSOLUTE COUNT 5.46 K/ L 1.78-5.38 H (BEAKER) (test code = 670) LYMPHOCYTES ABSOLUTE COUNT 0.53 K/ L 1.32-3.57 L (BEAKER) (test code = 414) MONOCYTES ABSOLUTE COUNT (BEAKER) 0.89 K/ L 0.30-0.82 H (test code = 415) EOSINOPHILS ABSOLUTE COUNT 0.42 K/ L 0.04-0.54 (BEAKER) (test code = 416) BASOPHILS ABSOLUTE COUNT (BEAKER) 0.03 K/ L 0.01-0.08 (test code = 417) IMMATURE GRANULOCYTES-RELATIVE 0.30 % 0.00-1.00 PERCENT (BEAKER) (test code = 2801) CT, [id number] 15:16:00Reason for exam:->diverticulitisWhat is the patient's sedation requirement?->No [facility]ation [facility] : 1945 Sex: MFINAL REPORT CT abdomen and pelvis without contrast History: Acute abdominal pain Comparison: 09/11/2014 Technique: serial axial imaging was performed without intravenous contrast as per departmental protocol. Multiplanar images are reconstructed and reviewed when indicated. This CT examination is performed using one or more of the following dose reduction techniques: Automated exposure control, adjustment of the mA and /or kV according to patient size, and/or use of iterative reconstruction technique. Findings:Evaluation limited by lack of intravenous contrast. Small loculated appearingright pleural effusion. Grossly unremarkable appearance of unenhanced liver, gallbladder, pancreas, spleen, and adrenal glands. Patient is status post right nephrectomy. Unchanged appearance of right flank abdominal wall hematoma, through which a portion of the liver protrudes. No urinary calculus. Nohydronephrosis. No apparent bladder wall thickening. No small or large bowel obstruction. No apparent bowel wall thickening. Postsurgical changes at the rectosigmoid junction. Moderate colonic diverticulosis, without evidence of diverticulitis. No findings to indicate acute appendicitis. No free fluidor adenopathy. No aggressive osseous lesion. Impression: 1. No acute findings in the abdomen or pelvis by unenhanced CT scan.2. Moderate colonic diverticulosis, without evidence of diverticulitis.3. Prior right nephrectomy.4. Small loculated appearing right pleural effusion. Signed: Ryan Thompson [facility] Verified Date/Time: 12/11/2021 15:16:47 [facility] METABOLIC [id number] 08:00:53 Test Item Value Reference Range Interpretation Comments SODIUM (BEAKER) 134 meq/L 136-145 L (test code = 381) POTASSIUM 4.7 meq/L 3.5-5.1 (BEAKER) (test code = 379) CHLORIDE (BEAKER) 102 meq/L 98-107 (test code = 382) CO2 (BEAKER) 20 meq/L 22-29 L (test code = 355) BLOOD UREA 40 mg/dL 7-21 H NITROGEN (BEAKER) (test code = 354) CREATININE 4.44 mg/dL 0.57-1.25 H (BEAKER) (test code = 358) GLUCOSE RANDOM 79 mg/dL 70-105 (BEAKER) (test code = 652) CALCIUM (BEAKER) 8.8 mg/dL 8.4-10.2 (test code = 697) EGFR (BEAKER) 13 Interpretatio n of eGFR (test code = mL/min/1.73 values Stage De scription 1092) sq m Result G1 Shauna l or high >=90 G2 Mildly decreased 60-89 G3a Mildl y to moderately 45-5 9 G3b Moderately to s everely 30-44 G4 Severl y decreased 15-29 G5 Kidney failure <15Reported eGF R is based on the CKD-EPI 2020 equation that d oes not use a race coefficientEsti mated GFR is not as accur ate as Creatinine Mercedes phillip in predicting glom erular filtration rate . Estimated GFR is not appl icable for dialysis patien ts Industrial Hygienist ID - TOO MHEPATITIS B SURFACE [id number] 07:02:25 Test Item Value Reference Range Interpretation Comments HEPATITIS B SURFACE ANTIGEN (2) Nonreactive Nonreactive (BEAKER) (test code = 2585) Specimen is considered negative for HBsAg.CBC W/PLT COUNT & AUTO [id number] 05:50:36 Test Item Value Reference Range Interpretation Comments WHITE BLOOD CELL COUNT (BEAKER) 7.1 K/ L 3.5-10.5 (test code = 775) RED BLOOD CELL COUNT (BEAKER) 3.58 M/ L 4.63-6.08 L (test code = 761) HEMOGLOBIN (BEAKER) (test code = 10.3 GM/DL 13.7-17.5 L 410) HEMATOCRIT (BEAKER) (test code = 33.0 % 40.1-51.0 L 411) MEAN CORPUSCULAR VOLUME (BEAKER) 92 fL 79-92 (test code = 753) MEAN CORPUSCULAR HEMOGLOBIN 28.8 pg 25.7-32.2 (BEAKER) (test code = 751) MEAN CORPUSCULAR HEMOGLOBIN CONC 31.2 GM/DL 32.3-36.5 L (BEAKER) (test code = 752) RED CELL DISTRIBUTION WIDTH 16.0 % 11.6-14.4 H (BEAKER) (test code = 412) PLATELET COUNT (BEAKER) (test 265 K/CU MM 150-450 code = 756) MEAN PLATELET VOLUME (BEAKER) 8.5 fL 9.4-12.4 L (test code = 754) NUCLEATED RED BLOOD CELLS 0 /100 WBC 0-0 (BEAKER) (test code = 413) NEUTROPHILS RELATIVE PERCENT 72 % (BEAKER) (test code = 429) LYMPHOCYTES RELATIVE PERCENT 10 % (BEAKER) (test code = 430) MONOCYTES RELATIVE PERCENT 11 % (BEAKER) (test code = 431) EOSINOPHILS RELATIVE PERCENT 8 % (BEAKER) (test code = 432) BASOPHILS RELATIVE PERCENT 0 % (BEAKER) (test code = 437) NEUTROPHILS ABSOLUTE COUNT 5.04 K/ L 1.78-5.38 (BEAKER) (test code = 670) LYMPHOCYTES ABSOLUTE COUNT 0.67 K/ L 1.32-3.57 L (BEAKER) (test code = 414) MONOCYTES ABSOLUTE COUNT (BEAKER) 0.76 K/ L 0.30-0.82 (test code = 415) EOSINOPHILS ABSOLUTE COUNT 0.53 K/ L 0.04-0.54 (BEAKER) (test code = 416) BASOPHILS ABSOLUTE COUNT (BEAKER) 0.03 K/ L 0.01-0.08 (test code = 417) IMMATURE GRANULOCYTES-RELATIVE 0.30 % 0.00-1.00 PERCENT (BEAKER) (test code = 2801) [id number] 15:25:56 Test Item Value Reference Range Interpretation Comments PHOSPHORUS (BEAKER) (test code = 4.2 mg/dL 2.3-4.7 604) Industrial Hygienist ID - PIAYA LC-REACTIVE [id number] 12:05:31 Test Item Value Reference Range Interpretation Comments C-REACTIVE PROTEIN (BEAKER) (test 11.71 mg/dL 0.00-0.50 H code = 676) Industrial Hygienist ID - PIAYA LSARS-CoV2/RT-PCR (Asymptomatic ONLY)2021-12-10 11:51:55 Test Item Value Reference Interpretation Comments Range SARS-COV2/RT-PCR Negative Negative The SARS-Co V-2 (test code = target nucleic 51529-8) acids are not detected in thi s specimen. Negat emmanuel results do not preclude SARS-C oV-2 infection and should not be u sed as the sole bas is for patient management decisions. Nega tive results must be combined with clinical observations, patient history , and epidemiolog ical information. A false negative result may occu r if a specimen is improperly collected, transported or handled. This S ARS CoV-2 test is a rapid, real-kelsey e RT-PCR test intended for th e qualitative detection of nucleic acid fr om SARS-CoV-2 in a nasopharyngeal swab specimen collec amado from individual s suspected of COVID-19 by the ir healthcare provider. JACQUELYN (test code = This test has been JACQUELYN) authorized by FDA under an EUA for use by authorized laboratories. This test is only authorized for the duration of the declaration that circumstances exist justifying the authorization of emergency use of in vitro diagnostic tests for detection and/or diagnosis of COVID-19 under Section 564(b)(1) of the Federal Food, Drug and Cosmetic Act, 21 U.S.C. 360bbb-3(b)(1), unless the authorization is terminated or revoked sooner. Fact Sheet for Healthcare Providers: https://www.[employer]/Documents/Xp ert%20Xpress%20SAR S%20CoV-2/Fact%20S heets/302-3802%20S ARS-COV-2%20HEALTH CARE%20PROVIDERS%2 0FACT%20SHEET.pdf Fact Sheet for Healthcare Patients: https://www.[employer]/Documents/Xp ert%20Xpress%20SAR S%20CoV-2/Fact%20S heets/302-3801%20S ARS-COV-2%20PATIEN T%20FACT%20SHEET.p df Lab Interpretation Normal (test code = 52354-3) [facility])2021-12-10 11:51:55 Test Item Value Reference Range Interpretation Comments SARS-COV2/RT-PCR Negative Negative The SARS-Co V-2 target (test code = nucleic acids a re not 5019257) detected in thi s specimen. Negative result s do not preclude SARS-C oV-2 infection and s hould not be used as the selena e basis for patient managem ent decisions. Nega tive results must be combine d with clinical observ ations, patient history , and epidemiological information. A false negativ e result may occur if a spec imen is improperly natan ected, transported or handled. This SARS CoV-2 test is a rapid, real-time RT-PC R test intended for th e qualitative detection of nu cleic acid from SARS-CoV-2 in a nasopharyngeal swab specimen collected from individuals suspected of CO VID-19 by their healthcar e provider. This test has been authorized by FDA under an EUA for use by authorized laboratories. This test is only authorized for the duration of the declaration that circumstances exist justifying the authorization of emergency use of in vitro diagnostic tests for detection and/or diagnosis of COVID-19 under Section 564(b)(1) of the Federal Food, Drug and Cosmetic Act, 21 U.S.C. 360bbb-3(b)(1), unless the authorization is terminated or revoked sooner. Fact Sheet for Healthcare Providers: https://www.[employer] m/Documents/Xpert%20Xpress%20SARS%20CoV-2/Fact%20Sheets/302-3802%63PXJH-QMH-7%20 HEALTHCARE%20PROVIDERS%20FACT%20SHEET.pdf Fact Sheet for Healthcare Patients: https://www.[employer]/Documents/Xpert%20Xp ress%20SARS%20CoV-2/Fact%20Sheets/3023801%66UVOT-GAY-1%20PATIENT%20FACT%20SHEET .pdfBASI METABOLIC [id number] 05:41:17 Test Item Value Reference Range Interpretation Comments SODIUM (BEAKER) 132 meq/L 136-145 L (test code = 381) POTASSIUM 4.4 meq/L 3.5-5.1 (BEAKER) (test code = 379) CHLORIDE (BEAKER) 99 meq/L 98-107 (test code = 382) CO2 (BEAKER) 21 meq/L 22-29 L (test code = 355) BLOOD UREA 40 mg/dL 7-21 H NITROGEN (BEAKER) (test code = 354) CREATININE 4.02 mg/dL 0.57-1.25 H (BEAKER) (test code = 358) GLUCOSE RANDOM 79 mg/dL 70-105 (BEAKER) (test code = 652) CALCIUM (BEAKER) 9.0 mg/dL 8.4-10.2 (test code = 697) EGFR (BEAKER) 15 Interpretatio n of eGFR (test code = mL/min/1.73 values Stage De scription 1092) sq m Result G1 Shauna l or high >=90 G2 Mildly decreased 60-89 G3a Mildl y to moderately 45-5 9 G3b Moderately to s everely 30-44 G4 Severl y decreased 15-29 G5 Kidney failure <15Reported eGF R is based on the CKD-EPI 2020 equation that d oes not use a race coefficientEsti mated GFR is not as accur ate as Creatinine Mercedes phillip in predicting glom erular filtration rate . Estimated GFR is not appl icable for dialysis patien ts Industrial Hygienist ID - PIAYA LCBC W/PLT COUNT & AUTO [id number] 04:58:29 Test Item Value Reference Range Interpretation Comments WHITE BLOOD CELL COUNT (BEAKER) 8.4 K/ L 3.5-10.5 (test code = 775) RED BLOOD CELL COUNT (BEAKER) 3.86 M/ L 4.63-6.08 L (test code = 761) HEMOGLOBIN (BEAKER) (test code = 11.0 GM/DL 13.7-17.5 L 410) HEMATOCRIT (BEAKER) (test code = 35.0 % 40.1-51.0 L 411) MEAN CORPUSCULAR VOLUME (BEAKER) 91 fL 79-92 (test code = 753) MEAN CORPUSCULAR HEMOGLOBIN 28.5 pg 25.7-32.2 (BEAKER) (test code = 751) MEAN CORPUSCULAR HEMOGLOBIN CONC 31.4 GM/DL 32.3-36.5 L (BEAKER) (test code = 752) RED CELL DISTRIBUTION WIDTH 16.4 % 11.6-14.4 H (BEAKER) (test code = 412) PLATELET COUNT (BEAKER) (test 296 K/CU MM 150-450 code = 756) MEAN PLATELET VOLUME (BEAKER) 8.7 fL 9.4-12.4 L (test code = 754) NUCLEATED RED BLOOD CELLS 0 /100 WBC 0-0 (BEAKER) (test code = 413) NEUTROPHILS RELATIVE PERCENT 72 % (BEAKER) (test code = 429) LYMPHOCYTES RELATIVE PERCENT 12 % (BEAKER) (test code = 430) MONOCYTES RELATIVE PERCENT 10 % (BEAKER) (test code = 431) EOSINOPHILS RELATIVE PERCENT 6 % (BEAKER) (test code = 432) BASOPHILS RELATIVE PERCENT 1 % (BEAKER) (test code = 437) NEUTROPHILS ABSOLUTE COUNT 6.01 K/ L 1.78-5.38 H (BEAKER) (test code = 670) LYMPHOCYTES ABSOLUTE COUNT 0.98 K/ L 1.32-3.57 L (BEAKER) (test code = 414) MONOCYTES ABSOLUTE COUNT (BEAKER) 0.85 K/ L 0.30-0.82 H (test code = 415) EOSINOPHILS ABSOLUTE COUNT 0.49 K/ L 0.04-0.54 (BEAKER) (test code = 416) BASOPHILS ABSOLUTE COUNT (BEAKER) 0.04 K/ L 0.01-0.08 (test code = 417) IMMATURE GRANULOCYTES-RELATIVE 0.40 % 0.00-1.00 PERCENT (BEAKER) (test code = 2801) HEMOGLOBIN AND [id number] 19:02:09 Test Item Value Reference Range Interpretation Comments HEMOGLOBIN (BEAKER) (test code = 11.6 GM/DL 13.7-17.5 L 410) HEMATOCRIT (BEAKER) (test code = 37.0 % 40.1-51.0 L 411) Industrial Hygienist ID - [id number] 22:14:01 Test Item Value Reference Range Interpretation Comments Ventricular rate (test code = 253) Atrial rate (test code = 255) KS interval (test code = 266) QRSD interval (test code = 260) QT interval (test code = 264) QTC interval (test code = 265) P axis 1 (test code = 267) QRS axis 1 (test code = 268) T wave axis (test code = 270) EKG impression (test Sinus rhythm with 1st code = 273) degree AV block-Right bundle branch block-Abnormal ECG-In automated comparison with ECG of 12-JUN-2021 16:49,-No significant change was found- [facility] 12 [id number] 22:14:01 Test Item Value Reference Range Interpretation Comments Ventricular rate (test code = 253) Atrial rate (test code = 255) KS interval (test code = 266) QRSD interval (test code = 260) QT interval (test code = 264) QTC interval (test code = 265) P axis 1 (test code = 267) QRS axis 1 (test code = 268) T wave axis (test code = 270) EKG impression (test Sinus rhythm with 1st code = 273) degree AV block-Right bundle branch block-Abnormal ECG-In automated comparison with ECG of 12-JUN-2021 16:49,-No significant change was found- [facility] XdczsndzSDBP-FlE-8 (COVID-19) RNA [Presence] in Respiratory specimen by GREGORIO with probe [id number] 16:18:00 Test Item Value Reference Range Interpretation Comments SARS-CoV-2 (COVID-19) RNA Not detected [Presence] in Respiratory specimen by GREGORIO with probe detection (test code = 14149-0) Whether patient is employed in a Unknown healthcare setting (test code = 23647-1) Whether the patient has symptoms Unknown related to condition of interest (test code = 46188-4) Whether the patient was Unknown hospitalized for condition of interest (test code = 77681-8) Whether the patient was admitted Unknown to intensive care unit (ICU) for condition of interest (test code = 32538-8) Whether patient resides in a Unknown congregate care setting (test code = 95795-1) status (test code = Unknown 07477-8) Date and time of symptom onset Unknown (test code = 56304-1) [facility] Preliminary Interpretation - Not an [id number] 02:34:56 Test Item Value Reference Range Interpretation Comments JACQUELYN (test code = JACQUELYN) Arturo Farnsworth MD 06/13/2021 9:00 [facility] ED Preliminary Interpretation - Not an OrderPerformed by: Arturo Farnsworth MDAuthorized by: Arturo Farnsworth MD ECG reviewed by ED Physician in the absence of a spinning frame changer: yes Interpretation: Interpretation: abnormal Rate: ECG rate: 65 ECG rate assessment: normal Rhythm: Rhythm: sinus rhythm and A-V block Ectopy: Ectopy: none QRS: QRS axis: Normal QRS intervals: NormalConduction: Conduction: abnormal 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 ST segments: ST segments: Non-specific Lab Interpretation Abnormal (test code = 34654-7) [facility] ED Preliminary Interpretation - Not an [id number] 02:34:56 Test Item Value Reference Range Interpretation Comments JACQUELYN (test code = JACQUELYN) Arturo Farnsworth MD 06/13/2021 9:00 [facility] ED Preliminary Interpretation - Not an OrderPerformed by: Arturo Farnsworth MDAuthorized by: Arturo Farnsworth MD ECG reviewed by ED Physician in the absence of a spinning frame changer: yes Interpretation: Interpretation: abnormal Rate: ECG rate: 65 ECG rate assessment: normal Rhythm: Rhythm: sinus rhythm and A-V block Ectopy: Ectopy: none QRS: QRS axis: Normal QRS intervals: NormalConduction: Conduction: abnormal 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 ST segments: ST segments: Non-specific Lab Interpretation Abnormal (test code = 46460-7) [facility] CHEST 1 [id number] 14:08:00 [facility] 1945 Sex: M FAX: Sekou Amezcua [phone] [place]: St: ADM Name: DARIEN GROSSMAN [facility] : 1945 Age/S: 74/M [address] [place] [address] Unit #: [id number] [facility] [place] [address] Phys: Sekou Curtis MD Acct: [id number] Dis Date: Status: ADM IN PHONE #: [phone] Exam Date: 05/31/20201405 FAX #: [phone]: HD protocol, need to make sure no TB EXAMS: CPT CODE: [id number] XR CHEST 1 V 75741 EXAM: Single view AP chest. EXAM DATE: 05/31/2020 at 1353 hours CLINICAL HISTORY: HD protocol, need to make sure no TB COMPARISON: None Heart is mildly enlarged.. Atherosclerotic calcifications and tortuosity of the intrathoracic aorta is identified.. Lungs appear free of acute disease. Imaged osseous structuresare unremarkable. IMPRESSION: Mild cardiomegaly. No acute pulmonary findings. at 1408 Reported and signed by: Yesika Kmuar M.D. CC: Sekou Curtis Technologist: RT Marques(Artie) Trnscrd Date/Time/By: 05/31/2020 (1407) : By: Enedelia Orig Print D/T: S: 05/31/2020 (1416) PAGE 1 Signed Report- XR CHEST 1 [id number] 14:08:00 [facility] : 1945 Sex: M FAX: Sekou Amezcua [phone] [place]: St: DIS Name: DARIEN GROSSMAN [facility] [place] : 1945 Age/S: 74/M [address] [facility] Unit #: [id number] [facility] [place] [address] Phys: Sekou Curtis MD Acct: [id number] Dis Date: Status: DIS IN PHONE #: [phone] Exam Date: 05/31/2020 1406 FAX #: [phone] Reason: HD protocol, need to make sure no TB EXAMS: CPT CODE: [id number] XR CHEST 1 V 44798 EXAM: Single view AP chest. EXAM DATE: 05/31/2020 at 1353 hours CLINICAL HISTORY: HD protocol, need to make sure no TB COMPARISON: None Heart is mildly enlarged.. Atherosclerotic calcifications and tortuosity of the intrathoracic aorta is identified.. Lungs appear free of acute disease. Imaged osseous structures are unremarkable. IMPRESSION: Mild cardiomegaly. No acute pulmonary findings. Electronically Signedby Armida Kumar on 05/31/2020 at 1408 Reported and signed by: Yesika Kumar M.D. CC: Sekou Curtis Technologist: RT Marques(Artie) Trnscrd Date/Time/By: 05/31/2020 (1405) : By: minerva SHER Orig Print D/T: S: 05/31/2020 (2799) PAGE 1 Signed ReportBASIC METABOLIC [id number] 05:15:00 Test Item Value Reference Range Interpretation [...] code = 8.5 mg/dL 8.0-10.5 N CA) [id number] 05:15:00 Test Item Value Reference Range Interpretation Comments ALBUMIN (test code = ALB) 3.10 g/dL 3.4-5.0 L [id number] 05:15:00 Test Item Value Reference Range Interpretation Comments PREALBUMIN (test code = PREALB) 27.0 mg/dL 16.0-40.0 N [id number] 23:17:00 Test Item Value Reference Range Interpretation Comments GLUBED (test code = 95 MG/DL 70-110 N Performe d by certified GLUBED) flake or shred roll operator at [facility] BASIC METABOLIC [id number] 09:36:00 Test Item Value Reference Range Interpretation [...] sly reported CA) result: 8.2 mg/dLEdited by: [facility] on 05/29/20:484780 0935: CA previo usly reported as: 8. 2 mg/dL BASIC METABOLIC [id number] 07:53:00 Test Item Value Reference Range Interpretation [...] 8.2 mg/dL 8.0-10.5 N CA) BASIC METABOLIC [id number] 04:28:00 Test Item Value Reference Range Interpretation [...] 9.3 mg/dL 8.0-10.5 N CA) CBC W/AUTO [id number] 08:31:00 Test Item Value Reference Range Interpretation [...] (test code NO = MDIFF) BASIC METABOLIC [id number] 07:59:00 Test Item Value Reference Range Interpretation [...] PLACEMENT (Bxg/Asp)2020-05-24 15:12:00 [facility] : 1945 Sex: M Name: DARIEN GROSSMAN [facility] : 1945 Age/S: 74 / M [address] [place] [address] Unit #: [id number] Loc: [place] [address] Phys: Jonathan Sheikh SCRUB TECH Acct: [id number] Dis Date: Status: ADM IN PHONE #: [phone] Exam Date: 05/24/2020 1434 FAX #: [phone] Reason: right aka fluid collection EXAMS: CPT CODE: [id number] USG NDL PLACEMENT (Bxg/Asp) 48747 PROCEDURE: Ultrasound-guided right knee stump flui d [...] used for local anesthesia. Using ultrasound guidance, 18-gauge needle was advanced [...] blood-tinged fluid was removed. IMPRESSION: 1. Technically successfulultrasound-guided aspiration of a right knee stump collection. at 1512 Reported and signed by: Paloma Arvizu D.O. CC: Sekou Curtis; Jonathan Sheikh SCRUB TECH Technologist: Rosemarie Ayon Trnscb Date/Time: 05/24/2020 (1511) [email or web address] Orig Print D/T: S: 05/24/2020 (151) Probe: PAGE 1 Signed Report- USG NDL PLACEMENT (Bxg/Asp)2020-05-24 15:12:00 [facility] : 1945 Sex: M Name: DARIEN GROSSMAN [facility] : 1945 Age/S: 74 / M [address] [place] [address] Unit #: [id number] Loc: [place] [address] Phys: Jonathan Sheikh NP Acct: [id number] Dis Date: Status: DIS IN PHONE #: [phone] Exam Date: 05/24/2020 1434 FAX #: [phone] Reason: right aka fluid collection EXAMS: CPT CODE: [id number] USG NDL PLACEMENT (Bxg/Asp) 71918 PROCEDURE: Ultrasound-guided right knee stump flui d [...] blood-tinged fluid was removed. IMPRESSION: 1. Technically successfulultrasound-guided aspiration of a right knee stump collection. at 1512 Reported and signed by: Paloma Arvizu D.O. CC: Sekou Curtis; Jonathan Sheikh NP Technologist: Rosemarie Ayon Trnprb Date/Time: 05/24/2020 (1511) [email or web address] Orig Print D/T: S: 05/24/2020 (1605) Probe: PAGE 1 Signed Report- CT LOWER EXTRM W/O C [id number] 18:02:00 [facility] : 1945 Sex: M Name: DARIEN GROSSMAN [facility] [place] : 1945 Age/S: 74 / M [address] Unit #: [id number] Loc: [place] [address] Phys: Penelope Sheikhnie SCRUB TECH Acct: [id number] Dis Date: Status: ADM IN PHONE #: [phone] Exam Date: 05/23/2020 172 FAX #: [phone] Reason: right bka, r/o fluid collection EXAMS: CPT CODE: [id number] [place] L[place]TRM W/[place] [address] [place] right femur without contrast. INDICATION: Rig ht below knee amputation. Fluid collection. COMPARISON: None. TECHNIQUE: Noncontrast CT of the femuris performed with thin cut reconstructions in all 3 planes. DOSE: CT imaging performed at this location utilizes radiation dose optimization technique which includes one or more of the followin) Automated exposure control; 2) Adjustment of the mA and/or kV according to patient's size; 3) Use of iterative reconstruction techniques. DLP: 566 mGy-cm FINDINGS: Clqyx-ogz-urvq amputation has been performed. A permeative pattern [...] multiple loculations measuring approximately 6 cm AP, 5.7cm transverse, and 3.8 cm craniocaudal dimension. Surrounding [...] RT(R)(CT) CTDI: DLP: Trnscb Date/Time: 05/23/2020 (1801) [email or web address] Orig Print D/T: S: 05/23/2020 (1805) PAGE 1 Signed Report- CT LOWER EXTRM W/O C [id number] 18:02:00 [facility] : 1945 Sex: M Name: DARIEN GROSSMAN [facility] : 1945 Age/S: 74 / M [address] [place] [address] Unit #: [id number] Loc: [place] [address] Phys: Jonathan Sheikh SCRUB TECH Acct: [id number] Dis Date: Status: DIS IN PHONE #: [phone] Exam Date: 05/23/2020 1728 FAX #: [phone] Reason: right bka, r/o fluid collection EXAMS: CPT CODE: [id number] [place] L[place]TR[place] W/[place] [address] [place] right femur without contrast. INDICATION: Right [...] iterative reconstruction techniques. DLP: 566 mGy-cm FINDINGS: Ounrb-kfw-pnud amputation has been performed. A permeative pattern [...] Mena M.D. CC: Sekou Curtis; Jonathan Sheikh SCRUB TECH Technologist:David Aguirre RT(R)(CT) CTDI: DLP: Trnscb Date/Time: 05/23/2020 (1801) [email or web address] Orig PrintD/T: S: 05/23/2020 (1805) PAGE 1 Signed ReportBASIC METABOLIC [id number] 13:38:00 Test Item Value Reference Range Interpretation [...] code = 9.6 mg/dL 8.0-10.5 N CA) [id number] 13:38:00 Test Item Value Reference Range Interpretation Comments PHOSPHOROUS (test code = PHOS) 3.9 MG/DL 2.5-4.9 N [id number] 13:36:00 Test Item Value Reference Range Interpretation Comments ALBUMIN (test code = ALB) 3.20 g/dL 3.4-5.0 L [id number] 13:36:00 Test Item Value Reference Range Interpretation Comments PREALBUMIN (test code = PREALB) 14.3 mg/dL 16.0-40.0 L CBC W/AUTO [id number] 13:15:00 Test Item Value Reference Range Interpretation [...] (test code NO = MDIFF) SED RATE [id number] 08:19:00 Test Item Value Reference Range Interpretation Comments SED RATE WESTERGREN (test code = 114 mm/hr 0-15 H SEDW) [id number] 08:09:00 Test Item Value Reference Range Interpretation Comments PREALBUMIN (test code = PREALB) 13.1 mg/dL 16.0-40.0 L C REACTIVE [id number] 08:08:00 Test Item Value Reference Range Interpretation Comments C REACTIVE PROTEIN (test code = 192.0 mg/L <10.0 H CRP) CBC W/AUTO [id number] 07:57:00 Test Item Value Reference Range Interpretation [...] MDIFF) - XR HIP W/PEL UNI 2+V [id number] 18:35:00 [facility] : 1945 Sex: M FAX: Sekou Amezcua [phone] [place]: St: ADM FAX: Dusty Smiley [phone] Name: DARIEN GROSSMAN [facility] : 1945 Age/S: 74/M [address] [place] [address] Unit #: [id number] Loc: [address] [address] Phys: Dusty Smiley SCRUB TECH Acct: [id number] Dis Date: Status: ADM IN PHONE #: [phone] Exam Date: 05/21/2020 173 FAX #: [phone] Reason: left hip pain EXAMS: CPT CODE: [id number] XR HIP W/PELUNI 2+[place] [address] 2+ RADIOGRAPHIC VIEWS LEFT HIP INDICATION: left [...] foreign body. IMPRESSION: 1. There is no acu te osseous fracture or dislocation. The hip joint spaces are preserved. at 1835 Reported and signed by: James Kitchen D.O. CC: Sekou Curtis; Dusty Smiley NP Technologist: RT Jesus(Artie) Trnscrd Date/Time/By: 05/21 (1834) : By: [email or web address] Orig Print D/T: S: 05/21/2020 (1837) PAGE 1 Signed Report- XR HIP W/PEL UNI 2+V [id number] 18:35:00 [facility] : 1945 Sex: M FAX: Rubina greenSekou Yaritza [phone] [place]: St: DIS FAX: Dusty Smiley [phone] Name: DARIEN GROSSMAN [facility] : 1945 Age/S: 74/M [address] [place] [address] Unit #: [id number] Loc: [place] [address] Phys: Dusty Smiley NP Acct: [id number] Dis Date: Status: DIS IN PHONE #: [phone] Exam Date: 0 05/21/20201734 FAX #: [phone] Reason: left hip pain EXAMS: CPT CODE: [id number] XR HIP W/PEL UNI2+[place] [address] 2+ RADIOGRAPHIC VIEWS LEFT HIP INDICATION: left hip pain. TECHNIQUE: 2+ radiographic views left hip COMPARISONS: None. FINDINGS: There is no acute osseous fracture or dislocation. The hipjoint spaces are preserved. There is mild enthesopathy [...] Smiley NP Technologist: RT Jesus(R) Trnscrd Date/Time/By: 021 (183) : By: [email or web address] Orig Print D/T: S: 05/21/2020 (1838) PAGE 1 Signed ReportCBC W/AUTO [id number] 07:47:00 Test Item Value Reference Range Interpretation [...] (test code NO = MDIFF) BASIC METABOLIC [id number] 07:40:00 Test Item Value Reference Range Interpretation [...] 9.1 mg/dL 8.0-10.5 N CA) COMPREHENSIVE METABOLIC [id number] 06:03:00 Test Item Value Reference Range Interpretation [...] TOTAL (test code = ALKP) CBC W/AUTO [id number] 05:49:00 Test Item Value Reference Range Interpretation [...] (test code NO = MDIFF) BASIC METABOLIC [id number] 08:43:00 Test Item Value Reference Range Interpretation [...] code = 9.0 mg/dL 8.0-10.5 N CA) [id number] 08:43:00 Test Item Value Reference Range Interpretation Comments PHOSPHOROUS (test code = PHOS) 4.7 MG/DL 2.5-4.9 N CBC W/AUTO [id number] 08:29:00 Test Item Value Reference Range Interpretation [...] (test code NO = MDIFF) BASIC METABOLIC [id number] 07:42:00 Test Item Value Reference Range Interpretation [...] 9.5 mg/dL 8.0-10.5 N CA) BASIC METABOLIC [id number] 09:55:00 Test Item Value Reference Range Interpretation [...] code = 8.7 mg/dL 8.0-10.5 N CA) [id number] 09:55:00 Test Item Value Reference Range Interpretation Comments PHOSPHOROUS (test code = PHOS) 5.2 MG/DL 2.5-4.9 H [id number] 09:55:00 Test Item Value Reference Range Interpretation Comments MAGNESIUM (test code = MAG) 1.89 mg/dL 1.80-2.40 N CBC W/AUTO [id number] 09:28:00 Test Item Value Reference Range Interpretation [...] REQUIRED (test code = MDIFF) CBC W/AUTO [id number] 09:28:00 Test Item Value Reference Range Interpretation [...] (test code NO = MDIFF) ACUTE HEPATITIS [id number] 13:08:00 Test Item Value Reference Range Interpretation [...] COMMENTS: At start of hemodialysisAB HEPATITIS B [id number] 13:08:00 Test Item Value Reference Range Interpretation Comments AB HEPATITIS B 22.1 mIU/mL See_Comment Status of Im munity SURFACE (test code = Anti-HB s Level HBSAB) --- I nconsis tent with Immun ity 0.0 - 9.9Consistent with Immunity >9.9Performed A t: HD [facility] [place] [address] [facility] [place], [place] [id number] jaswinder Peralta MD Ph:[phone] [Automated mess age] The system [employer] generated this result transmitted ref erence range: Immunity >9.9. The reference r za was not used to interpret this result as normal/abnor mal. COMMENTS: At start of hemodialysisACUTE HEPATITIS [id number] 10:00:00 Test Item Value Reference Range Interpretation [...] COMMENTS: At start of hemodialysisAB HEPATITIS B [id number] 10:00:00 Test Item Value Reference Range Interpretation Comments AB HEPATITIS B SURFACE (test code = HBSAB) COMMENTS: At start of hemodialysisBASIC METABOLIC [id number] 09:23:00 Test Item Value Reference Range Interpretation [...] 8.5 mg/dL 8.0-10.5 N CA) CBC W/AUTO [id number] 09:16:00 Test Item Value Reference Range Interpretation [...] MANUAL DIFF REQUIRED (test code NO = SHIVANI) RENAL FUNCTION [id number] 06:58:00 Test Item Value Reference Range Interpretation [...] code = 3.0 MG/DL 2.5-4.9 N PHOS) [id number] 06:58:00 Test Item Value Reference Range Interpretation Comments MAGNESIUM (test code = MAG) 1.81 mg/dL 1.80-2.40 N CBC W/AUTO [id number] 06:49:00 Test Item Value Reference Range Interpretation [...] (test code NO = MDIFF) CBC W/AUTO [id number] 06:45:00 Test Item Value Reference Range Interpretation [...] code = MDIFF) - CT HEAD/BRAIN W/O [id number] 04:29:00 [facility] : 1945 Sex: M Name: DARIEN GROSSMAN [facility] : 1945 Age/S: 74 / M [address] [facility] Unit #: [id number] Loc:[place] [address] Phys: Fausto Espino MD Acct: [id number] Dis Date: Status: ADM IN PHONE #: [phone] Exam Date: 05/13/20204 FAX #: [phone] Reason: TRAUMA EXAMS: CPT CODE: [id number] CT HEAD/BRAIN W/O CONT 45722 STUDY: - CT HEAD/BRAIN W/O CONT 05/13/2020 5:00 AM Ordering Physician: Fausto Espino MD Patient Name: DARIEN GROSSMAN MR: [id number] : 1945; Age: 74 years y/o Male Clinical Indication: Head trauma follow-up subdural hematoma. Comparison: CT brain 05/12/2020 at 2213 hours TECHNIQUE: Multiple contiguous transaxial noncontrast CT images were obtained through the head. Coronal and sa gittal reformatted images were prepared. CT imaging performed at this location utilizes radiation dose optimization techniques which include one or more of the following: -Automated exposure control -Adjustment of the mA and/or kV according to patient size -Use of iterative reconstruction technique CTRadiation Dose DLP: 609.43 mGy-cm FINDINGS: BRAIN PARENCHYMA: Mild scatter artifact. 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 Fairly stable acute left parafalcine subdural hematoma measuring approximately 9 mm maximum thickness again seen extending into the l eft tentorium measuring up to 2 mm maximum [...] 1 Signed Report (CONTINUED) Name: DARIEN GROSSMAN [facility] : 1945 Age/S: 74 / M [address] [place] [address] Unit #: [id number] Loc: [place] [address] Phys: Fausto Espino MD Acct: [id number] Dis Date: Status: ADM IN PHONE #: [phone] Exam Date: 05/13/2020 0414FAX #: [phone] Reason: TRAUMA EXAMS: CPT CODE: [id number] CT HEAD/BRAIN W/O CONT 81454 <Continued> MASTOIDS: Clear. ORBITS: The globes are stable with an absent right lens. 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 SOFT TISSUES: No significant abnorm ality. SKULL: No acute fracture or suspicious osseous lesion. 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 Stable acute left parafalcine subdural hemat jennifer extending into the left tentorium. Minimal left to right midline shift is stable. SL: TPAINTER-H at 0429 Reported and signedby: Anoop Mays M.D. CC: Fausto Espino MD; Bennett Farnsworth MD Technologist:Yasir Crain, RT(R)(CT); Edgar CTDI: DLP: Trnscb Date/Time: 05/13/2020 (428) Michael.TP6 Orig Print D/T: S: 05/13/2020 (0435) PAGE 2 Signed Report- CT HEAD/BRAIN W/O [id number] 04:29:00 [facility] : 1945 Sex: M Name: DARIEN GROSSMAN [facility] : 1945 Age/S: 74 / M [address] [place] [address] Blvd Unit #: [id number] Loc:[place] [address] Phys: Fausto Espino MD Acct: [id number] Dis Date: Status: DIS IN PHONE #: [phone] Exam Date: 05/13/2020413 FAX #: [phone] Reason: TRAUMA EXAMS: CPT CODE: [id number] CTHEAD/BRAIN W/O CONT 32826 STUDY: - CT HEAD/BRAIN W/O CONT 05/13/2020 5:00 AM Ordering Physician: Fausto Espino MD Patient Name: DARIEN GROSSMAN MR: [id number] : 1945; Age: 74 years y/o Male [...] to patient size -Use of iterative reconstruction techniqueCT Radiation Dose DLP: 609.43 mGy-cm FINDINGS: BRAIN [...] 1 Signed Report (CONTINUED) Name: DARIEN GROSSMAN [facility] : 1945 Age/S: 74 / M [address] [place] [address] Unit #: [id number] Loc: [place] [address] Phys: Fausto Espino MD Acct: [id number] Dis Date: Status: DIS IN PHONE #: [phone] Exam Date: 05/13/2020 0414 FAX #: [phone] Reason: TRAUMA EXAMS: CPT CODE: [id number] CT HEAD/BRAIN W/O CONT 84166 <Continued> MASTOIDS: Clear. ORBITS: The globes are [...] Fausto Espino MD; Bennett Farnsworth MD Technologist:Yasir Crain, RT(R)(CT); Edgar CTDI: DLP: Trnscb Date/Time: 05/13/2020 (428) t.SDR.TP6 Orig Print D/T: S: 05/13/2020 (9960) PAGE 2 Signed ReportCOVID 19 Asymptomatic IH [id number] 03:09:00 Test Item Value Reference Range Interpretation [...] high or waivedcomplexit y tests. BASIC METABOLIC [id number] 02:14:00 Test Item Value Reference Range Interpretation [...] 8.5 mg/dL 8.0-10.5 N CA) HEPATIC FUNCTION [id number] 02:14:00 Test Item Value Reference Range Interpretation [...] 112 IUnit/L 20-125 N code = ALKP) [id number] 02:14:00 Test Item Value Reference Range Interpretation Comments LIPASE (test code = LIP) 185 U/L 13-57 H [id number] 02:14:00 Test Item Value Reference Range Interpretation [...] or Legal orEmployment ev aluation purposes. PROTHROMBIN [id number] 02:11:00 Test Item Value Reference Range Interpretation [...] (to prevent recurrent infar ct). THROMBOPLASTIN TIME [id number] 02:11:00 Test Item Value Reference Range Interpretation Comments THROMBOPLASTIN TIME 31.8 Seconds 25.0-39.5 N Therape utic Range: PARTIAL (test code = 50.4 - 88.3 Seconds PTT) Effective 05/27/2018 PROTHROMBIN [id number] 02:10:00 Test Item Value Reference Range Interpretation [...] Antiphospholipi d Antibodies, Pre vention of systemic em bolism - Acute Myocard ial Infarction (to prevent recurrent infar ct). THROMBOPLASTIN TIME [id number] 02:10:00 Test Item Value Reference Range Interpretation Comments THROMBOPLASTIN TIME PARTIAL (test Seconds 25.0-39.5 code = PTT) CBC W/AUTO [id number] 01:59:00 Test Item Value Reference Range Interpretation [...] NO = MDIFF) - CT HEAD/BRAIN W/O [id number] 23:15:00 [facility] : 1945 Sex: M Name: DARIEN GROSSMAN [facility] : 1945 Age/S: 74 / M [address] [facility] [place] Unit #: [id number] Loc: [place] [address] Phys: Undefined Provider Acct: [id number] Dis Date: Status: REG REF PHONE #: [phone] Exam Date: 05/12/2020 0577 FAX #: Reason: s/p fall Report Has Been Amended EXAMS: CPT: [id number] CT HEAD/BRAIN W/O CONT 45763 Addendum - 05/12/2020 SIGNED 05/12/[address]: [id number]/CTHDBRWO Findings were notified to kiln head house operator Huyen at 11:15 PM on 05/12/2020. at 2315 Reported and signed by: Kaela Lindsey M.D. Transcribed: 05/12/2020 (9806) CarlitoTH15 Report EXAM: - CT HEAD/BRAIN W/O CONT LOCATION: H61 CLINICAL HISTORY/INDICATION: Fall with pain TECHNIQUE: Helical CT acquisition of the head was obtained without IV contrast. Images were reconstructed in the axial, sagittal and coronal planes. This examination was performed according to our departmental dose optimization program, which includes automated exposure cont rol, adjustment of the mA and/or kV according [...] GROSSMAN : 1945 Age/S: 74 / M [address] [place] Unit #: [id number] Loc: [place] [address] Phys: Undefined Provider Acct: [id number] Dis Date: Status: REG REF PHONE #: [phone] Exam Date: 05/12/2020 8426 FAX #: Reason: s/p fall Report Has Been Amended EXAMS: CPT: [id number] CT HEAD/BRAIN W/O CONT 87083 (Continued) frontoparietal lobe without midline shift or [...] Lindsey M.D. CC: Technologist:RT Sharon(R)(CT); ... CTDI: DLP:Trnscb Date/Time: 05/12/2020 (2250) CarlitoTH15 Orig Print D/T: S: 05/12/2020 (2254) PAGE 2 Signed Report- CT HEAD/BRAIN W/O [id number] 23:15:00[facility] : 1945 Sex: M Name: DARIEN GROSSMAN [facility] : 1945 Age/S: 74 / M [address] [place] Unit #: [id number] Loc: [place] [address] Phys: Undefined Provider Acct: [id number] Dis Date: Status: REG REF PHONE #: [phone] Exam Date: 05/12/20207 FAX #: Reason: s/p fall Report Has Been Amended EXAMS: CPT: [id number] CT HEAD/BRAIN W/O CONT 59340 Addendum - 05/12/2020 SIGNED 05/12/2020 ADDENDUM: [id number] CT/CTHDBRWO Findings were notified to kiln head house operator Huyen at 11:15 PM on 05/12/2020. at 7593 Reported and signed by: Kaela Lindsey M.D. Transcribed: 05/12/2020 (3425) CarlitoTH15 Report EXAM: - CT HEAD/BRAIN W/O CONT LOCATION: H61 CLINICAL HISTORY /INDICATION: Fall with pain TECHNIQUE: Helical CT acquisition [...] PAGE 1 Signed Report (CONTINUED) Name: DARIEN GROSSMANland : 1945 Age/S: 74 / M [address] [address] [place] Unit #: [id number] Loc: [place] [address] Phys: Undefined Provider Acct: [id number] Dis Date: Status: REG REF PHONE #: [phone] Exam Date: 05/12/2020 7228 FAX#: Reason: s/p fall Report Has Been Amended EXAMS: CPT: [id number] CT HEAD/BRAIN W/O CONT 53240 <Continued> frontoparietal lobe without midline shift or [...] (2250) t.SDR.TH15 Orig Print D/T: S: 05/12/2020 (2284) PAGE 2 Signed Report- CT HEAD/BRAIN W/O [id number] 22:51:00[facility] : 1945 Sex: M Name: DARIEN GROSSMAN [facility] : 1945 Age/S: 74 / M [address] [facility] [place] Unit #: [id number] Loc: [place] [address] Phys: Undefined Provider Acct: [id number] Dis Date: Status: REG REF PHONE #: [phone] Exam Date: 05/12/20202213 FAX #: Reason: s/p fall EXAMS: CPT: [id number] CT HEAD/BRAIN W/O CONT 57423 EXAM: - CT HEAD/BRAIN W/O CONT LOCATION: [...] transtentorial herniation. SCALP: No abnormalities. BONES: No skullfractures or aggressive calvarial lesions. PARTIALLY IMAGED FACE /PARANASAL SINUSES: Paranasal sinuses are clear. MASTOID AIR CELLS: No effusion. IMPRESSION: 1. Acute 7 mm left parafalcine subdural seven taya without midline shift or transtentorial herniation. 2. Moderate chronic small vessel ischemic disease. PAGE 1 Signed Report (CONTINUED) Name: DARIEN GROSSMAN [facility] : 1945 Age/S: 74 / [id number] [place] Unit #: [id number] Loc: [place] [address] Phys: Undefined Provider Acct: [id number] Dis Date: Status: REG REF PHONE #: [phone] Exam Date: 05/12/20202213 FAX #: Reason: s/p fall EXAMS: CPT: [id number] CT HEAD/BRAIN W/O CONT 45590 (Continued) at 2251 Reported and signed by: Kaela Lindsey M.D. CC: Technologist:RT Sharon(Artie)(CT); ... CTDI: DLP: Trnscb Date/Time: 05/12/2020 (2250) t.RYANR.TH15 Orig Print D/T: S: 05/12/2020 (2254) PAGE 2 Signed Report- CT C-SPINE W/O [id number] 22:40:00 [facility] : 1945 Sex: M Name: DARIEN GROSSMAN : 1945 Age/S: 74 / M [address] [address] [place] Unit #: [id number] Loc: [place] [address] Phys: Undefined Provider Acct: [id number] Dis Date: Status: REG REF PHONE #: [phone] Exam Date: 05/12/20202213 FAX #: Reason: s/p fall EXAMS: CPT: [id number] CT C-SPINE W/O CONT 61707 EXAM: - CT C-SPINE W/O CONT LOCATION: H61 CLINICAL HISTORY/INDICATION: Fall with pain. COMPARISON: None TECHNIQUE: Axial CT images were obtained of the cervical spine withoutintravenous contrast administration. These were reviewed in both soft tissue and bone algorithms. Coronal and sagittal reformats were obtained from the axial data. This examination was performed according to our departmental do se optimization program, which includes automated exposure control, [...] GROSSMAN : 1945 Age/S: 74 / M [address] [address] [place] Unit #: [id number] Loc: [place] [address] Phys: Undefined Provider Acct: [id number] Dis Date: Status: REG REF PHONE #: [phone] Exam Date:05/12/20202213 FAX #: Reason: s/p fall EXAMS: CPT: [id number] CT C-SPINE W/O CONT 33270 <Continued> spinal canal stenosis. C3-C4: Diffuse disc [...] stenosis, but no high-grade spinal canal stenosis. ElectronicallySigned by Armida Lindsey on 05/12/2020 at 2240 Reported and signed by: Kaela Lindsey M.D. CC: Technologist:RT Sharon(Artie)(CT); ... CTDI: DLP: Trnscb Date/Time: 05/12/2020 (2239) CarlitoTH15 Orig Print D/T: S: 05/12/2020 (7257) PAGE 2 Signed Report- CT C-SPINE W/O [id number] 22:40:00 [facility] : 1945 Sex: M Name: DARIEN GROSSMAN [facility] : 1945 Age/S: 74 / M [address] [address] [place] Unit #: [id number] Loc: [place] [address] Phys: Undefined Provider Acct: [id number] Dis Date: Status: REG REF PHONE #: [phone] Exam Date: 05/12/20203 FAX #: Reason: s/p fall EXAMS: CPT: [id number] CT C-SPINE W/O CONT 38849 EXAM: - CT C-SPINE W/O CONT LOCATION: [facility] CLINICAL HISTORY/INDICATION: Fall with pain. COMPARISON:None TECHNIQUE: [...] SOFT TISSUES: Prevertebral and posterior paraspinal soft tissuesare unremarkable. SPINAL CANAL: No gross epidural hematoma [...] arthrosis result in moderate right neural foraminal stenosis,mild left neural foraminal stenosis, but no PAGE 1 Signed Report (CONTINUED) Name: DARIEN GROSSMAN : 1945 Age/S: 74 / M [address] [address] [place] Unit #: [id number] Loc: [place] [address] Phys: Undefined Provider Acct: [id number] Dis Date: Status: REG REF PHONE #: [phone] Exam Date: 05/12/20203 FAX #: Reason: s/p fall EXAMS: CPT: [id number] CT C-SPINE W/O CONT 85520 (Continued) spinal canal stenosis. C3- C4: Diffuse disc osteophyte complex and bilateral uncovertebral arthrosis re sults in severe bilateral neural foraminal stenosis but no spinal canal stenosis. Moderate bilateralfacet arthrosis. C4-C5: Grade 1 anterolisthesis. Partial ankylosis [...] (2239) t.SDR.TH15 Orig Print D/T: S: 05/12/2020 (0780) PAGE 2 Signed ReportAFB [id number] 05:13:59 Test Item Value Reference Range Interpretation Comments AFB culture isolate No growth after 6 (test code = 543-9) weeks of incubation. [facility] [id number] 06:15:49 Test Item Value Reference Range Interpretation Comments Fungus culture isolate No growth after 4 (test code = 1441) weeks of incubation. [facility] HospitalOR FL < 1 [id number] 21:39:42EXAMINATION: OR FL < 1 HOUR C-arm [...] be issued by the physician performing theprocedure.[id number] HospitalAnaerobon [facility] [id number] 14:47:42 Test Item Value Reference Range Interpretation Comments Anaerobic culture No anaerobic organisms isolate (test code = isolated. 552) [facility] HospitalAFB [id number] 07:48:01 Test Item Value Reference Range Interpretation Comments AFB stain (test code = No acid fast bacilli 676-7) (AFB) seen. [facility] HospitalAerobic [id number] 07:48:01 Test Item Value Reference Range Interpretation Comments Aerobic culture isolate No growth after 3 (test code = 498) days. [facility] HospitalFung[facility] [id number] 07:48:01 Test Item Value Reference Range Interpretation Comments Fungus smear (test code = No fungi observed. 1443) [facility] HospitalGram [id number] 07:48:01Gram stain isolateFew WBC'sNo organisms seen Comment: Specimen InformationSpecimen Source: TissueSpecimen Site: Femur: Right femoral canal tissue [facility] HospitalS[facility] pathology [id number] 21:19:54 Test Item Value Reference Range Interpretation Comments Case number (test code = [id number]) Surgical pathology See link below for report (test code = PDF Lab Report 2255) Result status (test code This is Final Report = [id number]) for [id number] [facility] carotid [id number] 00:39:00 [facility] Carotid Artery Duplex Report [address] [place] [address] For quality control chemist purposes, the categorization of the degree of the stenosis of this exam is based on criteria described in the IAC carotid stenosis grading white paper( www.intersocietal.org/Vascular) and Madie Andrews, Oz Armendariz, et al. Carotid artery stenosis: maya-scale and DopplerUS diagnosis--Society of Radiologists in Ultrasound Consensus Conference. Radiology. 2003 Nov; 229(2):340-6. Pat.Name: DARIEN GROSSMAN Pat.ID: [id number] .Date: 03/23/2020 Refer.MD: BEAR MARIEE MD Exam Time: 11:25:00 AM Study Type:Carotid Height: 68in Weight: 186lb BSA: 1.98 m2 Age: 9 1945,74Y Sex: MALE Sonogrphr: NOEMI Chapman Pat. Stat.:Inpatient Room: [place] [address] Tape Vol: BE, CPT - 4: 21036 Echo Event ID:[id number] Order ID: [id number] Reason for Study:Cervical bruit, no prior carotid artery assessment.History of anemia, ESRD and left arm dialysis. Procedures: Colorflow, Grayscale/2D, Pulsed wave DopplerRace: C SUMMARY: --------PHYSICAL ASSESSMENT Blood Pulses Carotid Pressure Carotid Temporal BruitRight 117/55 Left AVfistula CAROTID ARTERY SCANRIGHT: There is scattered hard plaque with intimal thickening in thecommon carotid artery. There is hard and calcified plaque noted in thebulb extending into the internal andexternal carotid arteries. Thereis antegrade flow noted in [...] consistent with distal AVF.6. Bilateral vertebral arteries withantegrade flow. FINDINGS: ------Carotid Findings: Right Left Verteb.Flw Antegrade Antegrade Subclavian Triphasic Disturbed MEASUREMENTS: DOPPLERRight CCA Dist CCA Dist PSV 116 cm/s CCA Dist CCA Dist EDV 20 cm/s CCA Dist EDV 29 cm/sRight CCA Mid CCA Mid PSV 118 cm/s CCA Mid CCA Mid EDV 20 cm/s CCA Mid EDV 25 cm/sRight CCA Prox CCA Prox PSV 108 cm/s CCA Prox CCA ProxEDV 26 cm/s CCA Prox EDV 25 cm/s CCA Prox PSV 92 cm/s Right ECA Prox ECA Prox PSV 183 cm/s ECA Prox ECA Prox EDV 20 cm/s Right ICA Dist ICA Dist PSV 100 cm/s ICA Dist ICA Dist EDV 26 cm/s ICA Dist EDV33 cm/s ICA Dist PSV 98 cm/s Right [...] Liang MD, RPVIInterface, Radiology Results In - 03/23/2020 6:40 PM CST [facility]ascular Ultrasound Laboratory Carotid Artery Duplex Report [address] [place] [address] For quality control chemist purposes, the categorization of the degree of the stenosis of this exam is based on criteria described in the IAC carotid stenosis grading white paper( www.intersocietal.org/Vascular) and Shagufta Andrews., Oz Armendariz, et al. Carotid artery stenosis: maya-scale and Doppler US diagnosis--Society of Radiologists in Ultrasound Consensus Conference. Radiology. 2003 Nov; 229(2):340-6. Pat.Name: DARIEN GROSSMAN Pat.ID: [id number] St.Date: 03/23/2020 Refer.MD: BEAR MARIEE MD Exam Time: 11:25:00 AM Study Type:Carotid Height: 68in Weight: 186lb BSA: 1.98 m2 Age: 9 1945,74Y Sex: MALE Sonogrphr: NOEMI Chapman Pat. Stat.:Inpatient Room: [address] Vol: BE, CPT - 4: 50661 Echo Event ID:[id number] Order ID: [id number] Reason for Study:Cervical bruit, no prior carotid [...] extending into the internal and external carotid arter ies. Thereis antegrade flow noted in the vertebral artery. LEFT: There is scattered hard plaque withintimal thickening inthe common carotid artery. There is [...] right internal carotid artery. 2. >50% stenosis ofthe right external carotid artery.3. Non-stenotic scattered plaque [...] Left subclavian artery with significant velocity elevation anddisturbeddoppler signal consistent with distal AVF.6. Bilateral vertebral arteries with antegrade flow.------- FINDINGS: Caroti d Findings: Right Left Verteb.Flw Antegrade Antegrade Subclavian Triphasic Disturbed M EASUREMENTS: DOPPLERRight CCA Dist CCA Dist PSV 116 [...] cm/s ICA Prox EDV 35 cm/sRight Vertebral VertebralPSV 87 cm/s Vertebral Vertebral EDV 26 cm/s Vertebral EDV 14 cm/s Vertebral PSV 53 cm/s Right Subclavian Subclavian PSV 172 cm/s Subclavian EDV 22 cm/sLeft CCA Dist CCA Dist PSV 118 cm/s Left CCA Mid CCA Mid PSV 110 cm/s Left ECA Prox ECA Prox PSV 158 cm/s ECA Prox EDV 23 cm/sLeft ICA Mid ICA Mid [id number] cm/s Left ICA Prox ICA Prox PSV 125 cm/s Left Subclavian Subclavian PSV 312 cm/s Subclavian EDV 66.6 cm/sRight SCA Prox SCA Prox PSV 172 cm/s SCA Prox EDV 22 cm/sLeft SCA Prox SCA Prox PSV 312 cm/sSCA Prox EDV 66 cm/sRight ICA/CCA Ratio ICA/CCA PSV 1.67 Left ICA/CCA Ratio ICA/CCA PSV 1.14 Signed 03/23/2020 06:39 PMAngel Liang MD, RPVIMethVal Verde Regional Medical [id number] 19:25:28Tejal Simpson 03/22/2020 1:45 [address]MAirway Date/Time: 03/22/2020 1:00 PM Location: OR Performed by: BETTING CLERK/A AAnesthesiologist: Tahmina Mccloud/BETTING CLERK/AA: Tejal SimpsonAuthorized by: Liu Mccloud Urgency: ElectiveDifficult [...] more First attemptusing Sheikh 2 blade by BETTING CLERK. Second attempt with MD with MAC 3. Grade 3b view, secondary to neck stiffness.Grade 1 view with glidescope. ETT passed atraumatically.Transthoracic Echocardiogram Complete, (w Contrast, Strain and 3D if needed)2020-03-19 20:20:00 Echocardiography Report [address] [place] [address] Pat.Name: DARIEN GROSSMAN Pat.ID: [id number] .Date: 03/19/2020 Refer.MD: CLINT KING DO Exam Time: 11:43:00 AM Study Type:Routine Echo Height: 68in Weight: 185.61lb BSA: 1.98 m2 Age: 9 1945,74Y Sex: MALE BP: 110/57 HR: 70 bpm Sonogrphr: NILSON Conde Pat. Stat.:Inpatient Room: [facility] Study Status:Final Echo Event ID:[id number] Order ID: [id number] Reason for Study:Perioperative function eval without cardiac [...] estimate PA systolic pressure. MEASUREMENTS: 2DParasternal [place] Ao An 2.2 cm LVPWd 1.3 cm Ao Rtd 3.4 cm Index 1.7 cm/m2 LA Ds 4.1 cm IVSd 1.3 cm RWT 0.5 LVIDd 5.1 cm Index 2.6 cm/m2 LV Mass 270.1 g (122-174) LVIDs 2.9 cmLVM Index 136.4 g/m2 LV%fs 43.1 % LVOT [...] 03/19/2020 2:20 PM CST Echocardiography Report [address] [place] [address] Pat.Name: DARIEN GROSSMAN Pat.ID: [id number] .Date: 03/19/2020 Refer.MD: CLINT KING DO Exam Time: 11:43:00 AM Study Type:Routine Echo Height: 68in Weight: 185.61lb BSA: 1.98 m2 Age: 9 1945,74Y Sex: MALE BP: 110/57 HR: 70 bpm Sonogrphr: NILSON Conde Pat.Stat.:Inpatient Room: [facility] Study Status:Final Echo Event ID:[id number] Order ID: [id number] Reason for Study:Perioperative function eval without cardiac evidenceHistory / Clinical:Hypertension, Heart DiseaseProcedures: 2D Echo, Colorflow Doppler, 3D Echo, Strain, Portable,Intravenous Optison ContrastR sagar: C SUMMARY: There is mildconcentric LV hypertrophy. LV EF is normal. Overallwall motion is normal.Diastolic dysfunction GradeI (Mild): Impaired relaxation with normalLV filling pressures. DEEPTHI MOSES: LV: LV size is normal. There is mild concentric LV hypertrophy. LV EF is normal. Overall wall motion is normal. Estimated EF is 65-69%RV: RV size is normal. RVsystolic function is normal.LA: LA volume is mildly [...] estimate PA systolic pressure. MEASUREMENTS: 2DParasternal [place] Ao An2.2 cm LVPWd 1.3 cm Ao Rtd 3.4 [...] LVOT SV 103.8 ml LVOT CO 7.4 l/minSVi 52.4 ml/m2 LVOT CI 3.7 l/m/m2 Signed 03/19/2020 02:20 Dodie Sarabia M.D.[facility] Lower Extremity Wo Contrast [id number] 13:07:30EXAMINATION: MRI LOWER EXTREMITY WO CONTRAST RIGHT [...] [facility] THIGH WO CONTRAST [id number] 12:29:55EXAMINATION: MRI KNEE WO CONTRAST RIGHT, MRI [...] with the fluid surrounding the tibial stem. [id number] Interface, Radiology Results - 03/19/2020 6:33 AM [...] communicate with the fluid surrounding the tibial stem.HMRM-AQTORD3QxzpkqghaBrooke Army Medical Center Knee Right Wo [id number] 12:29:55EXAMINATION: MRI KNEE WO CONTRAST RIGHT, MRI [...] with the fluid surrounding the tibial stem. [facility]-[id number] Interface, Radiology Results Incoming - 03/19/2020 6:33 [...] that appears to communicate with the fluid surro unding the tibial stem.[facility]-YEIFUM1Gzrvyewcu HospitalUrine [id number] 23:38:48 Test Item Value Reference Range Interpretation Comments Urine culture (test code = SEE COMMENT [id number]) [facility] K[facility] 1 Or 2 Vw [id number] 23:14:12EXAMINATION: XR KNEE 1 OR 2 VW RIGHT CLINICAL HISTORY: PAin and swelling COMPARISON: None IMPRESSION: There is a large zone of lucency around the stems of the femoral and tibial components of the totalknee replacement, consistent with loosening. Infection cannot be excluded. There is a joint effusionpresent. There is no acute fracture or dislocation. There are vascular calcifications. [facility]-[id number] Interface, Radiology Results Incoming - 03/18/2020 5:17 [...] acute fracture or dislocation. There are vascular calcifications.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 Infection cannot be excluded. Bones are osteopenic. No definite acute fracture is seen. [id number] Interface, Radiology Results 03/18/2020 5:09 PM CST EXAMINATION: XR TIBIA FIBULA 2 VW RIGHTCLINICAL HISTORY: L leg cellulitisCOMPARISON: NoneIMPRESSION:There is evidence of loosening of tibial component of kneeprosthesis, with large zone of lucency around the stem. Infection cannot be excluded. Bones are osteopenic. No definite acute fracture is seen.[id number] HospitalTROPONI [id number] 02:22:00 Test Item Value Reference Range Interpretation Comments TROPONIN I (test <0.012 See_Comment [Automated code = 0967997085) message] The system which generated this result [...] ? Lab Interpretation Normal (test code = 68417-5) [facility] [id number] 02:20:00 Test Item Value Reference Range Interpretation Comments TROPONIN I (test <0.012 See_Comment [Automated code = 4956351465) message] The system which generated this result [...] ? Lab Interpretation Normal (test code = 78545-4) [facility]00 Test Item Value Reference Range Interpretation Comments APPEARANCE (test code = Clear Clear 0005711426) COLOR (test code = Yellow Yellow 8732154962) PH (test code = 4.8-8.0 6968438608) SP GRAVITY (test code = 1.003-1.030 2123774650) GLU U QUAL (test code = Normal Normal 0637081910) BLOOD (test code = Negative Negative 2422362005) KETONES (test code = Negative Negative 8690912575) PROTEIN (test code = 100 mg/dL Negative A 2887-8) UROBILIN (test code = Normal Normal 1856677365) BILIRUBIN (test code = Negative Negative 3089723357) NITRITE (test code = Negative Negative 9250921776) LEUK AJ (test code = Negative Negative 0990451684) RBC/HPF (test code = See_Comment H [Autom ated message] 4346880013) The system [employer] generated this result transmit amado reference range : 0 - 3 HPF. The refe rence range was not u sed to interpret th is result as normal/abnormal . WBC/HPF (test code = <1 See_Comment [Autom ated message] 1189347342) The system [employer] generated this result transmit amado reference range : 0 - 5 HPF. The refe rence range was not u sed to interpret th is result as normal/abnormal . BACTERIA (test code = Few Negative A 1696416217) MUCOUS (test code = Slight Negative LPF A 8691854664) SQ EPITH (test code = <1 HPF 9761373208) Lab Interpretation (test Abnormal code = 30685-3) [facility]00 Test Item Value Reference Range Interpretation Comments APPEARANCE (test code = Clear Clear 1133518215) COLOR (test code = Yellow Yellow 9838059052) PH (test code = 4.8-8.0 1727802403) SP GRAVITY (test code = 1.003-1.030 4916921315) GLU U QUAL (test code = Normal Normal 1161026819) BLOOD (test code = Negative Negative 3325403181) KETONES (test code = Negative Negative 8102839985) PROTEIN (test code = 100 mg/dL Negative A 2887-8) UROBILIN (test code = Normal Normal 2957937456) BILIRUBIN (test code = Negative Negative 0362001387) NITRITE (test code = Negative Negative 5254639005) LEUK AJ (test code = Negative Negative 4474041176) RBC/HPF (test code = See_Comment H [Autom ated message] 2989623376) The system [employer] generated this result transmit amado reference range : 0 - 3 HPF. The refe rence range was not u sed to interpret th is result as normal/abnormal . WBC/HPF (test code = <1 See_Comment [Autom ated message] 7493473324) The system [employer] generated this result transmit amado reference range : 0 - 5 HPF. The refe rence range was not u sed to interpret th is result as normal/abnormal . BACTERIA (test code = Few Negative A 4579713273) MUCOUS (test code = Slight Negative LPF A 3658886060) SQ EPITH (test code = <1 HPF 7560981584) Lab Interpretation (test Abnormal code = 73244-8) [facility] CHEST 1 [id number] 23:24:26 No acute cardiopulmonary abnormality. Preliminary Report [...] reviewed this study and agree with theabove report.[facility] CHEST 1 [id number] 23:24:26 No acute cardiopulmonary abnormality. Preliminary Report [...] reviewed this study and agree with theabove report.[facility] COMP. METABOLIC PANEL ([id number])2019-11-11 23:16:00 Test Item Value Reference Range Interpretation Comments NA (test code = 137 mmol/L 135-145 4752477922) K (test code = 4.0 mmol/L 3.5-5 3758176893) CL (test code = 94 mmol/L 98-108 L 3858681220) CO2 TOTAL (test code = 29 mmol/L 23-31 7921439193) AGAP (test code = 2-16 5994997215) BUN (test code = 63 mg/dL 7-23 H 4929981708) GLUCOSE (test code = 142 mg/dL 70-110 H 8505482265) CREATININE (test code = 5.82 mg/dL 0.6-1.25 H 4327122612) TOTAL BILI (test code = 0.4 mg/dL 0.1-1.0 6209195356) CALCIUM (test code = 9.8 mg/dL 8.6-10.6 8152685113) T PROTEIN (test code = 7.5 g/dL 6.3-8.2 5899875608) ALBUMIN (test code = 4.2 g/dL 3.5-5 7441254382) ALK PHOS (test code = 100 U/L 34-122 6073239948) ALTv (test code = 14 U/L 5-50 1742-6) AST(SGOT) (test code = 27 U/L 13-40 9451053324) eGFR Calculation mL/min/1.73m2 (Non-) (test code = 8645876809) eGFR Calculation mL/min/1.73m2 () (test code = 7287381597) JACQUELYN (test code = JACQUELYN) Association of [...] tests). Lab Interpretation Abnormal (test code = 51657-0) [facility] 23:16:00 Test Item Value Reference Range Interpretation Comments MAGNESIUM (test code = 6380410896) 2.5 mg/dL 1.7-2.4 H Lab Interpretation (test code = Abnormal 22062-9) [facility]OL[facility] (40999)2019-11-11 23:16:00 Test Item Value Reference Range Interpretation Comments NA (test code = 137 mmol/L 135-145 9007332660) K (test code = 4.0 mmol/L 3.5-5 6625806303) CL (test code = 94 mmol/L 98-108 L 4671195781) CO2 TOTAL (test code = 29 mmol/L 23-31 5777804552) AGAP (test code = 2-16 9281828196) BUN (test code = 63 mg/dL 7-23 H 3547383886) GLUCOSE (test code = 142 mg/dL 70-110 H 3510535916) CREATININE (test code = 5.82 mg/dL 0.6-1.25 H 8491173640) TOTAL BILI (test code = 0.4 mg/dL 0.1-1.7 9177958001) CALCIUM (test code = 9.8 mg/dL 8.6-10.6 4760792440) T PROTEIN (test code = 7.5 g/dL 6.3-8.2 6985742586) ALBUMIN (test code = 4.2 g/dL 3.5-5 1607072039) ALK PHOS (test code = 100 U/L 34-122 8132340999) ALTv (test code = 14 U/L 5-50 1742-6) AST(SGOT) (test code = 27 U/L 13-40 4224717219) eGFR Calculation mL/min/1.73m2 (Non-) (test code = 4534349228) eGFR Calculation mL/min/1.73m2 () (test code = 6081561907) JACQUELYN (test code = JACQUELYN) Association of [...] tests). Lab Interpretation Abnormal (test code = 82999-2) [facility] 23:16:00 Test Item Value Reference Range Interpretation Comments MAGNESIUM (test code = 1276302563) 2.5 mg/dL 1.7-2.4 H Lab Interpretation (test code = Abnormal 99569-9) [facility] WITH [id number] 22:53:00 Test Item Value Reference Range Interpretation [...] RDW-SD (test code = 46.1 fL 38.5-51.6 81532-5) RDW-CV (test code = 13.9 % 12.1-15.4 788-0) PLT (test code = See_Comment [Automated 777-3) message] The sy stem which generated this result transmitted reference range : 150 - 328 10*3/ ?L. The reference r za was not used to interpret this result as normal/abnormal . MPV (test code = 8.7 fL 9.8-13 L 40491-6) NRBC/100 WBC (test See_Comment [Automat ed code = 9091922205) message] The system which generated this result transmitted reference range : 0.0 - 10.0 /100 WBCs. The refer ence range was not u sed to interpret th is result as normal/abnormal . NRBC x10^3 (test code <0.01 See_Comment [Auto mated = 6831225759) message] The s ystem which generated this result transmitted reference range : 10*3/?L. The reference range was not used to interpret this result as normal/abnormal . GRAN MAT (NEUT) % 79.0 % (test code = 770-8) IMM GRAN % (test code 0.50 % = 8552820156) LYMPH % (test code = 7.3 % 736-9) MONO % (test code = 9.1 % 5905-5) EOS % (test code = 3.8 % 713-8) BASO % (test code = 0.3 % 706-2) GRAN MAT x10^3(ANC) 6.93 10*3/uL 1.99-6.95 (test code = 9235088491) IMM GRAN x10^3 (test 0.04 10*3/uL 0-0.06 code = 9289050163) LYMPH x10^3 (test code 0.64 10*3/uL 1.09-3.23 L = 731-0) MONO x10^3 (test code 0.80 10*3/uL 0.36-1.02 = 742-7) EOS x10^3 (test code = 0.33 10*3/uL 0.06-0.53 711-2) BASO x10^3 (test code 0.03 10*3/uL 0.01-0.09 = 704-7) Lab Interpretation Abnormal (test code = 10861-2) [facility] WITH [id number] 22:53:00 Test Item Value Reference Range Interpretation [...] RDW-SD (test code = 46.1 fL 38.5-51.6 61275-1) RDW-CV (test code = 13.9 % 12.1-15.4 788-0) PLT (test code = See_Comment [Automated 777-3) message] The sy stem which generated this result transmitted reference range : 150 - 328 10*3/ ?L. The reference r za was not used to interpret this result as normal/abnormal . MPV (test code = 8.7 fL 9.8-13 L 10645-4) NRBC/100 WBC (test See_Comment [Automat ed code = 0053313148) message] The system which generated this result transmitted reference range : 0.0 - 10.0 /100 WBCs. The refer ence range was not u sed to interpret th is result as normal/abnormal . NRBC x10^3 (test code <0.01 See_Comment [Auto mated = 1604575103) message] The s ystem which generated this result transmitted reference range : 10*3/?L. The reference range was not used to interpret this result as normal/abnormal . GRAN MAT (NEUT) % 79.0 % (test code = 770-8) IMM GRAN % (test code 0.50 % = 2153165715) LYMPH % (test code = 7.3 % 736-9) MONO % (test code = 9.1 % 5905-5) EOS % (test code = 3.8 % 713-8) BASO % (test code = 0.3 % 706-2) GRAN MAT x10^3(ANC) 6.93 10*3/uL 1.99-6.95 (test code = 4247204249) IMM GRAN x10^3 (test 0.04 10*3/uL 0-0.06 code = 9779810351) LYMPH x10^3 (test code 0.64 10*3/uL 1.09-3.23 L = 731-0) MONO x10^3 (test code 0.80 10*3/uL 0.36-1.02 = 742-7) EOS x10^3 (test code = 0.33 10*3/uL 0.06-0.53 711-2) BASO x10^3 (test code 0.03 10*3/uL 0.01-0.09 = 704-7) Lab Interpretation Abnormal (test code = 46897-9) [facility], [facility]TREMITY, LOWER WITHOUT CONTRAST, RIGHT 2017-01-25 19:47:00FINAL [...] MDReport Verified Date/Time: 01/25/2017 19:47:23 Reading Location: [address] Reading Room RAD, HIP, 2 VIEWS, [...] Kumar Verified Date/Time: 01/25/2017 19:11:49 Reading Location: [address] [place] Chemistry 2014-02-18 16:35:22483Hjcxqguy KapnjmhTtotqgxnp9630-66-68 16:35:65529Olxsyssr NivfkfoQblbpgqfy6468-20-67 16:35:0032[facility] OxjkgmaUqowvkcvv0578-07-08 16:35:31192Mgchuuuw UnjqildUlepcbyyk7221-19-75 16:35:95772 MEQ/LMemorial Jimmy Jxcndowjh0434-30-45 16:35:004.3 MEQ/LMemorial IyvndqlVbpnthpdf2744-08-80 16:35:002.5[facility] YtslrdjUlugeheov2620-03-39 16:35:0029[facility] Rtswuqcje7043-21-41 16:35:00 Test Item Value Reference Range Interpretation Comments BUN/CREAT (test code = BUN/CREAT) 12 08-05 [facility] KuzameeTocjsdbzp8220-21-10 16:35:004.2[facility] HermannChemistry 2014-02-18 16:35:008.9[facility] KuqlcmwWvptdkvhq8702-57-34 16:35:0036[facility] GbxnxecFogxyguuu9427-94-30 16:35:0025[facility] IhaqcroSvwekhmak0166-78-47 16:35:67901Nvzoawcv GrikiyzRmvsxaqbs9427-28-48 16:35:001.380[facility] Gszcwrwib6044-19-34 16:35:002.00[facility] UkfsgayDxgfwtmkkz0628-55-29 16:35:00 13.9[facility] CbhqatgYzgsmpqquk7507-24-51 16:35:0041.4[facility] HermannHematology 2014-02-18 16:35:64555 K/CMMMemorial RhtvgzlHtcklkon2010-71-66 16:35:00Non ReactiveMemorial QszfzumCugtaqwdx4897-44-97 16:35:15453Rwgefjgu HermannChemistry 2014-02-18 16:35:92572Aexxataf AkbmgaqYnwimtiqs6822-96-81 16:35:0032[facility] AtzkjinGgbjgnuyi5175-99-42 16:35:18926Ybsfiamh IdkedfbKqleizarq0703-94-37 16:35:06086 MEQ/LMemorial ViwxrzuNxjdqhkgh6969-15-59 16:35:004.3 MEQ/LMemorial KjexjrbYxysapwoy5606-66-72 16:35:002.5[facility] CofhlztYtayttzlg5373-51-17 16:35:0029[facility] ZburtdpRszdshlwd2611-97-62 16:35:00 Test Item Value Reference Range Interpretation Comments BUN/CREAT (test code = BUN/CREAT) 12 1 6-25 [facility] LygtgxuQfpkjkkyf1848-11-53 16:35:004.2[facility] HermannChemistry 2014-02-18 16:35:008.9[facility] SrwzarlKaapjtjuh7112-44-90 16:35:0036[facility] CwlmjgmPjxshoprr7141-83-96 16:35:0025[facility] IakxsatZazsdbfhy8799-13-79 16:35:46081Ishfumcp GzizhjoBwlmlbcdy6632-88-62 16:35:001.380[facility] [place] Dfpmnhtvz5749-31-80 16:35:002.00[facility] NtxxrnvZovszcxwts4287-24-18 16:35:00 13.9[facility] DzzkqqzAxxkkmdzwe3695-40-65 16:35:0041.4[facility] HermannHematology 2014-02-18 16:35:17567 K/CMMMemorial QwtzucdJkabopha6805-40-65 16:35:00Non ReactiveMemorial BdztehoYfzuhvrvd2501-78-19 20:45:00See Note mg/dLMemorial CgnrenkTzovqzlrc4129-95-64 20:45:62483 MEQ/LMemorial LybyiizUlcsdpiue2813-96-67 20:45:004.5 MEQ/LMemorial HewrhvyEgsfkfjbz7030-50-82 20:45:001.8[facility] [place] Xjjwfuefx1397-73-06 20:45:0030[facility] HloenyjUpipmlpwu2001-39-90 20:45:00 Test Item Value Reference Range Interpretation Comments BUN/CREAT (test code = BUN/CREAT) 17 1 6-25 [facility] WhbkqmtTjkiurdsh4718-01-53 20:45:004.2[facility]annChemistry 2013-01-23 20:45:009.3[facility] ZhpvfvaOujcwobcz6473-81-57 20:45:0031[facility] BziisthDmexzleek6385-70-23 20:45:0020[facility] DymnyroRucgqfukf6232-09-19 20:45:10323Sflmwtxm OhytznyVevsnmids2197-31-45 20:45:001.390[facility] Eowownucp5358-13-11 20:45:001.33[facility] GuptouvVhjtxiicc3262-32-78 20:45:11156 [facility] NrnkcoyTkwffnqsw9773-16-80 20:45:62839Bnsbkcbg HermannChemistry 2013-01-23 20:45:0023[facility] EsjpnfeJacaecxxz0753-56-34 20:45:28629Nrieaoqs TqghtorBdklgnrbc0028-53-99 20:45:06651Mgzelzef KbqfrxzAxkubcqkk5878-18-86 20:45:0023[facility] DvarckwEvxwjadty7750-79-34 20:45:00See Note mg/dLMemorial QzprzosVhswcftse4342-49-33 20:45:05241 MEQ/LMemorial MvkvjmbHvyzxugos8751-70-77 20:45:004.5 MEQ/LMemorial UdtiucvWnsuxzubp8527-49-46 20:45:001.8[facility] Vypxapbof6837-43-48 20:45:0030[facility] KemseioXphszdeid4719-36-99 20:45:00 Test Item Value Reference Range Interpretation Comments BUN/CREAT (test code = BUN/CREAT) 17 1 6-25 [facility] LlujraqYpzmqrezy6316-98-49 20:45:004.2[facility] HermannChemistry 2013-01-23 20:45:009.3[facility] RdoyqzuDopmhotdr7882-86-05 20:45:0031[facility] FvbnwsxGjgzotxkg6261-40-43 20:45:0020[facility] SqkbosoYlrjzodwt4908-24-80 20:45:19348Xwsqwgov ZeameddOpdjjwmot9127-66-17 20:45:001.390[facility] [place] Ujnqoeomi4737-34-85 20:45:001.33[facility] KzygynlLgsquoget1876-59-89 20:45:36809 [facility] VnlbwzaGwtutpsde9784-07-54 20:45:94167Cudsenrp HermannChemistry 2013-01-23 20:45:0023[facility] VdyvrwrWkfagyona9650-45-74 20:45:91892Ghcudtrq JhutgyaPukqeruok0214-82-82 20:45:56301Zotodxyt VodrrmoDemqshvuj3595-72-53 20:45:0023[facility] SmqtfkyOtyzqdnsv0261-71-08 15:12:571.57[facility] [place] Dqciknprb0242-08-93 15:12:571.57[facility] XwmmtplFanfkodkf1411-64-36 15:12:571.57 [facility] LtjdennOxezzesyd1683-34-45 15:12:571.57[facility] [place]"
[2021-12-16 00:40] LABS: Absolute Lymphocytes (CBC) 0.8 K/uL (0.7-4.9); Hematocrit 30.5 % (39.6-49.0); Lymphocytes % 5.6 % (15.3-44.8); MPV 6.7 fL (7.6-11.3); RBC Red Blood Cell Count 3.43 M/uL (4.33-5.43)
[2021-12-16 01:23] LABS: SARS-CoV-2 Antigen Rapid Res Negative (Negative)
[2021-12-16] MEDS ORDERED: NA CHLORIDE 0.9% 250 ML ONE ×3 (01:40→04:02)
[2021-12-16 01:44] LABS: Albumin 2.9 g/dL (3.4-5.0); Bilirubin Total 0.3 mg/dL (0.2-1.0); Protein, Total 6.9 g/dL (6.4-8.2)
[2021-12-16] MEDS ORDERED: PANTOPRAZOLE 40 MG INJ ONE (01:50)
--- NOTE | 2021-12-16 02:46 | ER ---
Nurse's Notes [facility] Name: Amando Grossman Age: 76 yrs Sex: Male : 1945 Arrival Date: 12/15/2021 Time: 23:15 Bed 6 Private MD: Diagnosis: Lower GI bleed;Abdominal pain, Generalized;Diverticulitis with inflammation at the splenic flexure Presentation: 12/15 23:16 Chief complaint: Patient states: I have been having bleeding from my rectum, worsening kr3 today. hx of rectal bleeding and diverticulosis. Coronavirus screen: Vaccine status: Patient reports receiving the 2nd dose of the covid vaccine. Client denies travel out of the [place] in the last 14 days. Ebola Screen: Patient denies travel to an Ebola-affected area in the 21 days before illness onset. 23:16 Method Of Arrival: EMS kr3 23:27 Initial Sepsis Screen: Does the patient meet any 2 criteria? No. Patient's initial kr3 sepsis screen is negative. Does the patient have a suspected source of infection? No. Patient's initial sepsis screen is negative. Risk Assessment: Do you want to hurt yourself or someone else? Patient reports no desire to harm self or others. Onset of symptoms was December 15, 2021. 23:27 Acuity: KELLY 3 kr3 Triage Assessment: 23:29 General: Appears in no apparent distress. comfortable, Behavior is calm, cooperative, kr3 appropriate for age. Pain: Denies pain. 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 - Social history:: Smoking status: Patient denies any tobacco usage or history of. Screenin:52 Abuse screen: Denies threats or abuse. Denies injuries from another. Nutritional as6 screening: No deficits noted. Tuberculosis screening: No symptoms or risk factors identified. Fall Risk None identified. Assessment: 23:49 General: Appears in no apparent distress. Behavior is calm, cooperative. Pain: Denies as6 pain. GI: Reports bloody stool. Musculoskeletal: Amputation of right leg. 12/16 00:44 Neuro: Level of Consciousness is lethargic. Derm: Skin is pale. as6 00:46 General: pt has had x2 blood stools since arrival to ER. as6 02:05 General: first unit of blood started. see paper charting for vitals . as6 02:25 General: first unit of blood completed . as6 02:30 General: second unit of blood started. see paper charting for vitals . as6 02:50 General: second unit of blood completed . as6 03:00 General: pt passing copious amounts of blood via rectum . as6 04:10 General: third unit of blood started while pt on EMS stretcher. fourth unit of blood as6 given to EMS . Vital Signs: 12/15 23:16 BP 129 / 58; Pulse 71; Resp 18; Temp 98.4; Pulse Ox 98% on R/A; Height 5 ft. 8 in. kr3 (172.72 cm); Pain 0/10; 12/16 00:40 BP 114 / 60; Pulse 69; Resp 27 S; Pulse Ox 90% on 4 lpm NC; as6 01:11 BP 113 / 56; Pulse 68; Resp 24 S; as6 01:57 BP 100 / 53; Pulse 62; Resp 24 S; Pulse Ox 97% on 4 lpm NC; as6 03:15 BP 83 / 57; Pulse 61; Resp 19 S; Pulse Ox 98% on 2 lpm NC; as6 03:30 BP 84 / 59; Pulse 64; as6 03:35 Weight 81.65 kg (R); as6 03:43 BP 91 / 46; Pulse 78; as6 03:35 Body Mass Index 27.37 (81.65 kg, 172.72 cm) as6 [place] Coma Score: 02:21 Eye Response: to voice(3). Verbal Response: oriented(5). Motor Response: obeys as6 commands(6). Total: 14. ED Course: 12/15 23:15 Patient arrived in ED. kr3 23:26 Trevor Abdalla MD is Attending Physician. kdr 23:28 Triage completed. kr3 23:29 Patient placed in an exam room, on a stretcher. kr3 23:49 Slawson, Manuelito, RN is Primary Nurse. as6 12/16 00:30 Arm band placed on. as6 00:30 Placed in gown. Bed in low position. Call light in reach. Side rails up X2. as6 00:30 Inserted saline lock: 18 gauge in right antecubital area, using aseptic technique. as6 Blood collected. 01:01 Initiated call for transfer to [facility], called 3 times and it just rings for a couple of wm minutes then call drops. 01:02 Abdomen In Process Unspecified. EDMS 01:17 Initiated transfer to [facility], spoke with Neetu. wm 01:50 Accessed peripheral vein via ultrasound, utilizing dynamic ultrasound technique bb Powerglide midline 18g 10cm to right upper arm using hospital protocol with good blood return and flushes easily pt tolerated well. 02:05 [facility] denied due to capacity, immediately initiated to [facility]. wm 02:44 Pt accepted for transfer by Dr. Susannah Grant. wm 02:55 [facility] due to weather. wm 03:50 No provider procedures requiring assistance completed. Patient transferred, IV remains as6 in place. Administered Medications: 01:57 Drug: ProTONIX (pantoprazole) 40 mg Route: IVP; Site: right antecubital; as6 03:53 Follow up: Response: No adverse reaction as6 01:57 Drug: ProTONIX (pantoprazole) 8 mg/hr Route: IV; Rate: 25 ml/hr; Site: right as6 antecubital; 03:53 Follow up: Response: No adverse reaction; IV Status: Infusion continued upon transfer as6 02:19 CANCELLED (Physician Discretion): Dilaudid (HYDROmorphone) 1 mg IVP once bb 02:19 CANCELLED (Physician Discretion): Zofran (Ondansetron) 4 mg IVP once; over 2 minutes bb 03:40 Drug: NS 0.9% 500 ml Route: IV; Rate: bolus; Site: right upper arm; as6 03:53 Follow up: Response: No adverse reaction; IV Status: Completed infusion; IV Intake: as6 500ml 03:40 Drug: DOPamine 2 mcg/kg/min Route: IV; Rate: calculated rate; Site: right upper arm; as6 03:53 Follow up: Response: No adverse reaction; IV Status: Infusion continued upon transfer as6 Medication: 12/15 23:52 VIS not applicable for this client. as6 Intake: 12/16 03:00 IV: 570ml (Blood Products); Total: 570ml. as6 03:53 IV: 500ml; Total: 1070ml. as6 Outcome: 02:45 ER care complete, transfer ordered by . kdr 03:50 Transferred by ground EMS to [facility], Transfer form completed. as6 03:50 critical 03:50 Instructed on the need for transfer. 04:20 Patient left the ED. as6 Signatures: Dispatcher [employer] EDMS Trevor Abdalla MD MD kdr Ballard, Brenda RN RN Maggie Zapien Ashby, RN RN as6 Eryn Alicea RN RN kr3
--- NOTE | 2021-12-16 02:46 | EDPHYS ---
Physician Documentation [facility] Name: Amando Grossman Age: 76 yrs Sex: Male : 1945 Arrival Date: 12/15/2021 Time: 23:15 Bed 6 Private MD: ED Physician Trevor Abdalla HPI: 12/16 04:29 This 76 yrs old Male presents to ER via EMS with complaints of Rectal Bleeding. kdr 04:29 The patient presents to the emergency department with bleeding from the rectum/anus, kdr that is severe. Onset: The symptoms/episode began/occurred suddenly, this morning, today. Context: the patient Patient states that after going to dialysis earlier today, the patient noted several bloody stools. They have persisted through the day and he presents tonight with ongoing intermittent bowel movements that are grossly bloody. Modifying factors: The symptoms are alleviated by nothing, The symptoms are aggravated by nothing. Associate signs and symptoms: Pertinent positives: lower GI bleeding, dark red. The patient has not experienced similar symptoms in the past. 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 - Social history:: Smoking status: Patient denies any tobacco usage or history of. ROS: 12/16 04:29 Constitutional: Negative for fever, chills, and weight loss, Eyes: Negative for injury, kdr pain, redness, and discharge, Neck: Negative for injury, pain, and swelling, Cardiovascular: Negative for chest pain, palpitations, and edema, Respiratory: Negative for shortness of breath, cough, wheezing, and pleuritic chest pain, Back: Negative for injury and pain, MS/Extremity: Negative for injury and deformity, Skin: Negative for injury, rash, and discoloration, Neuro: Negative for headache, weakness, numbness, tingling, and seizure activity. Psych: Negative for depression, anxiety, suicide ideation, homicidal ideation, and hallucinations, Allergy/Immunology: Negative for hives, rash, and allergies, Endocrine: Negative for neck swelling, polydipsia, polyuria, polyphagia, and marked weight changes, Hematologic/Lymphatic: Negative for swollen nodes, abnormal bleeding, and unusual bruising. Abdomen/GI: Positive for abdominal pain, diarrhea, rectal bleeding. Exam: 04:29 Constitutional: This is a well developed, well nourished patient who is awake, alert, kdr and in no acute distress. Head/Face: Normocephalic, atraumatic. Neck: Trachea midline, no thyromegaly or masses palpated, and no cervical lymphadenopathy. Supple, full range of motion without nuchal rigidity, or vertebral point tenderness. No Meningismus. Chest/axilla: Normal chest wall appearance and motion. Nontender with no deformity. No lesions are appreciated. Cardiovascular: Regular rate and rhythm with a normal S1 and S2. No gallops, murmurs, or rubs. Normal PMI, no JVD. No pulse deficits. Respiratory: Lungs have equal breath sounds bilaterally, clear to auscultation and percussion. No rales, rhonchi or wheezes noted. No increased work of breathing, no retractions or nasal flaring. Back: No spinal tenderness. No costovertebral tenderness. Full range of motion. Skin: Warm, dry with normal turgor. Normal color with no rashes, no lesions, and no evidence of cellulitis. MS/ Extremity: Pulses equal, no cyanosis. Neurovascular intact. Full, normal range of motion. Neuro: Awake and alert, GCS 15, oriented to person, place, time, and situation. Cranial nerves II-XII grossly intact. Motor strength 5/5 in all extremities. Sensory grossly intact. Cerebellar exam normal. Normal gait. Psych: Awake, alert, with orientation to person, place and time. Behavior, mood, and affect are within normal limits. 04:29 Musculoskeletal/extremity: Right AKA. Vital Signs: 12/15 23:16 BP 129 / 58; Pulse 71; Resp 18; Temp 98.4; Pulse Ox 98% on R/A; Height 5 ft. 8 in. kr3 (172.72 cm); Pain 0/10; 12/16 00:40 BP 114 / 60; Pulse 69; Resp 27 S; Pulse Ox 90% on 4 lpm NC; as6 01:11 BP 113 / 56; Pulse 68; Resp 24 S; as6 01:57 BP 100 / 53; Pulse 62; Resp 24 S; Pulse Ox 97% on 4 lpm NC; as6 03:15 BP 83 / 57; Pulse 61; Resp 19 S; Pulse Ox 98% on 2 lpm NC; as6 03:30 BP 84 / 59; Pulse 64; as6 03:35 Weight 81.65 kg (R); as6 03:43 BP 91 / 46; Pulse 78; as6 03:35 Body Mass Index 27.37 (81.65 kg, 172.72 cm) as6 [place] Coma Score: 02:21 Eye Response: to voice(3). Verbal Response: oriented(5). Motor Response: obeys as6 commands(6). Total: 14. MDM: 02:10 Physician consultation: Beto Kaba MD was called at 02:10. ED course: Given the kdr inability to reach either [facility] or [place] (denied due to capacity in her ) I placed a call to Dr. Calloway for backup and have left a message for him to call the ED.. 02:45 Patient medically screened. kdr 04:23 Data reviewed: vital signs, nurses notes, lab test result(s), radiologic studies. kdr Counseling: I had a detailed discussion with the patient and/or guardian regarding: the historical points, exam findings, and any diagnostic results supporting the discharge/admit diagnosis, lab results, radiology results, the need to transfer to another facility. ED course: While the patient's vital signs remained somewhat soft, his mental status has been improving. Patient has continued to have intermittent though less frequent bowel movements. FFP and platelets were not given prior to his transfer due to a misunderstanding with the laboratory. For unknown reason, they did not process the order for these blood products and this was unknown to us until shortly before the patient's transfer. It was felt that awaiting for these proximal was delaying the definitive care at the receiving facility. Therefore we did not provide those blood products to the patient prior to his discharge. Additionally, the patient's blood pressure was soft but given his improved mental status, it was decided that it was best to get the patient to the definitive facility as soon as possible. The ambulance crew was given the additional unit of blood for use and transport if needed, the third unit was started prior to his departure. They were also given a pressure (dopamine) use if needed during the trip. As of this time, I have not heard from the local GI doctor on-call. Given the constellation of presenting factors ongoing vital signs and need for definitive care, the patient was transported with EMS for the receiving facility. 12/15 23:49 Order name: CBC with Diff; Complete Time: 00:53 kdr 12/15 23:49 Order name: CMP; Complete Time: 02:38 kdr 12/15 23:49 Order name: Lipase; Complete Time: 02:38 kdr 12/15 23:49 Order name: Type And Screen kdr 12/16 00:51 Order name: SARS RAPID; Complete Time: 01:35 as6 12/16 00:32 Order name: Abdomen EDMS 12/16 01:46 Order name: RBC Leukored Pheresis EDUT 12/16 01:53 Order name: CBC w/o diff; Complete Time: 03:17 kdr 12/16 02:59 Order name: Packed RBC Leukored EDUT 12/15 23:49 Order name: IV Saline Lock; Complete Time: 00:30 kdr 12/15 23:49 Order name: Labs collected and sent; Complete Time: 00:30 kdr Administered Medications: 01:57 Drug: ProTONIX (pantoprazole) 40 mg Route: IVP; Site: right antecubital; as6 03:53 Follow up: Response: No adverse reaction as6 01:57 Drug: ProTONIX (pantoprazole) 8 mg/hr Route: IV; Rate: 25 ml/hr; Site: right as6 antecubital; 03:53 Follow up: Response: No adverse reaction; IV Status: Infusion continued upon transfer as6 02:19 CANCELLED (Physician Discretion): Dilaudid (HYDROmorphone) 1 mg IVP once bb 02:19 CANCELLED (Physician Discretion): Zofran (Ondansetron) 4 mg IVP once; over 2 minutes bb 03:40 Drug: NS 0.9% 500 ml Route: IV; Rate: bolus; Site: right upper arm; as6 03:53 Follow up: Response: No adverse reaction; IV Status: Completed infusion; IV Intake: as6 500ml 03:40 Drug: DOPamine 2 mcg/kg/min Route: IV; Rate: calculated rate; Site: right upper arm; as6 03:53 Follow up: Response: No adverse reaction; IV Status: Infusion continued upon transfer as6 Disposition Summary: 12/16/21 02:45 Transfer Ordered Transfer Location: [facility] kdr Reason: Higher level of care kdr Condition: Serious kdr Problem: an acute exacerbation kdr Symptoms: have improved kdr Accepting Physician: Rudy(12/16/21 04:20) as6 Diagnosis - Lower GI bleed kdr - Abdominal pain, Generalized kdr - Diverticulitis with inflammation at the splenic flexure kdr Forms: - Medication Reconciliation Form kdr - SBAR form kdr Signatures: Dispatcher [employer] EDMS Trevor Abdalla MD MD kdr Manuelito Newton RN RN as6 Eryn Alicea RN RN kr3 Ira Anna PA-C PA-C sb4 Britta Velazquez RN bb Corrections: (The following items were deleted from the chart) 00:32 00:14 Abdomen Pelvis W Con+CT.RAD.BRZ ordered. EDMS EDMS 02:19 02:00 Dilaudid (HYDROmorphone) 1 mg IVP once ordered. kdr bb 02:19 02:00 Zofran (Ondansetron) 4 mg IVP once; over 2 minutes ordered. kdr bb 02:46 02:45 Rudy kdr kdr 04:20 02:46 Rudy kdr as6
[2021-12-16 03:11] LABS: Hematocrit 31.9 % (39.6-49.0); MCV 90.3 fL (80-100); MPV 6.5 fL (7.6-11.3); RBC Red Blood Cell Count 3.54 M/uL (4.33-5.43)
[2021-12-16] MEDS ORDERED: DOPAMINE/D5W 400 MG/250 ML BAG IV ONE (03:30)
[2021-12-16] MEDS ORDERED: NA CHLORIDE 0.9% 500 ML ONE (03:30)
[2021-12-16 04:36] VITALS: TEMP 98.4
[2021-12-16 04:45] VITALS: O2SAT 98
[2021-12-16 04:47] VITALS: BP 91/46
--- NOTE | 2021-12-16 21:13 | RAD REPORT ---
EXAM DESCRIPTION: CT - Abdomen Pelvis Wo Contrast - 12/16/2021 1:01 am CLINICAL HISTORY: The patient is 65 years old and is Female; Shortness of breath TECHNIQUE: Axial computed tomographic angiography images of the chest with intravenous contrast. S agittal and coronal reformatted images were created and reviewed. This CT exam was performed using one or more of the following dose reduction techniques: automated exposure control, adjustment of t he mA and/or kV according to patient size, and/or use of iterative reconstruction technique. MIP re constructed images were created and reviewed. COMPARISON: No relevant prior studies available. FINDINGS: Pulmonary arteries: Unremarkable. No pulmonary embolism. Aorta: No acute findings. No thoracic aortic aneurysm. Lungs: Emphysematous changes throughout the lungs. Focal consolidation in the posterior left lower lobe. Small focal area of consolidation with scarring/atelectasis in the right upper lobe. Pleural space: Unremarkable. No significant effusion. No pneumothorax. Heart: Unremarkable. No cardiomegaly. No significant pericardial effusion. No evidence of R V dysfunction. Bones/joints: No acute fracture. No dislocation. Soft tissues: Unremarkable. Lymph nodes: Unremarkable. No enlarged lymph nodes. IMPRESSION: 1. Emphysematous changes throughout the lungs. 2. Focal consolidation in the posterior left lower lobe. 3. Small focal area of consolidation with scarring/atelectasis in the right upper lobe. 4. No evidence of pulmonary embolism. Electronically signed by: Mickey Loera MD 12/16/2021 12:42 AM CDT Due to temporary technical issues with the PACS/Fluency reporting system, reports are being signed by the in house radiologists without review as a courtesy to insure prompt reporting. The interpreting radiologist is fully responsible for the content of the report.
== END 2021-12-16 04:20 | disposition short-term general hospital (02) ==
LOC: ER 23:02
PROC: 30233N1 Transfusion of Nonautologous Red Blood Cells into Peripheral Vein, Percutaneous Approach (ICD-10-PCS; principal; 2021-12-16)
DX: K57.32 Diverticulitis of large intestine without perforation or abscess without bleeding (principal); R10.84 Generalized abdominal pain; I10 Essential (primary) hypertension; Z99.2 Dependence on renal dialysis; Z20.822 Contact with and (suspected) exposure to COVID-19; Z88.0 Allergy status to penicillin; Z88.8 Allergy status to other drugs, medicaments and biological substances; Z91.013 Allergy to seafood; Z91.048 Other nonmedicinal substance allergy status
CPT/HCPCS: 85025; 36415; 86900; 86850; 86901; 85027; 83690; 80053; 74176; 99285; 87811; 36430; C9113; P9016 ×4; J1265; J7050 ×3; J7040

== ENCOUNTER 2022-01-22 16:26 | Observation (INO) | payer OTHER, BC ==
--- OUTSIDE RECORDS SUMMARY | 2022-01-22 16:46 | XMS REPORT | Continuity of Care Document ---
:[address] [facility] t Address [address] [place] [address] Care Team Providers Name Role Phone LAURYN ALISON MOORE Primary Care Physician Unavailable [id number] Attending Clinician Unavailable SHARON DIAZ IGNAZIO Attending Clinician Unavailable Sekou Curtis Attending Clinician Unavailable Provider, Undefined Attending Clinician Unavailable Fausto Espino Attending Clinician Unavailable Chaya Villafuerte Kelcey Attending Clinician Unavailable Vesta Aguilar Attending Clinician VESTA AGUILAR Attending Clinician Unavailable NEERU MARLEY Attending Clinician Unavailable Neeru Marley MD Attending Clinician RADIOLOGY Attending Clinician Unavailable Radiology Attending Clinician Unavailable Doctor Unassigned, [place] Attending Clinician Unavailable Maddy Guo Attending Clinician SVETLANA KENNY Attending Clinician Unavailable Javad MOSQUERA, Arturo Gupta Attending Clinician [phone] Svetlana Cano MD Attending Clinician Daniel Rocha MD Attending Clinician LOVE HILARIO Attending Clinician Unavailable Nicky Sandoval MA Attending Clinician Unavailable SANDRA GUO Attending Clinician Unavailable Usha MOSQUERA, Obi Almanza Attending Clinician Emilee Wooten MA Attending Clinician Unavailable Nolberto MOSQUERA, Suzanne Egan Attending Clinician [phone] Clint King DO Attending Clinician [phone] Dickson MOSQUERA, Kristopher Attending Clinician Liu Mccloud Attending Clinician Gladys MOSQUERA, Clint Fair Attending Clinician Oswald York MD Attending Clinician Wanda Pedraza Attending Clinician Wanda HENSON Attending Clinician Unavailable Liss Mosley MD Attending Clinician [id number] Admitting Clinician Unavailable SHARON DIAZ IGNAZIO Admitting Clinician Unavailable Sekou Curtis Admitting Clinician Unavailable CHAYA VILLAFUERTE Admitting Clinician Unavailable Fausto Espino Admitting Clinician Unavailable Chaya Villafuerte Kelcey Admitting Clinician Unavailable Jl Forte Admitting Clinician JL FORTE Admitting Clinician Unavailable NEERU MARLEY Admitting Clinician Unavailable LIDA MUKHERJEE Admitting Clinician Unavailable SVETLANA CANO Admitting Clinician Unavailable JESSICA BELLAMY Admitting Clinician Unavailable CLINT [place] Admitting Clinician Unavailable Payers Payer Name Policy Type Policy Number Effective Date Expiration Date S ource [facility] [id number] [employer] BCTI [id number] MEDICARE A B [id number] 2010 00:00:00 [place] [id number] 2010 OS 00:00:00 MEDICARE PART A \\T\\ [id number] 2010 B 00:00:00 BCBS TRADITIONAL [id number] 2010 00:00:00 MEDICARE PART B - [id number] 2010 2014 MEDICARE 00:00:00 00:00:00 PPO/EPO - BCBS [id number] 2016 00:00:00 Problems Condition Condition Condition Status Onset Resolution Last Treating Co mments Source Name Details Category Date Date Treatment Clinician Date GI BLEED GI BLEED Diagnosis Active 2021-022021-12-16 Memoria Active 02-15 05:39:00 l 12/16/2021 00:00: Carlton escoto [address] ACUTE ACUTE Diagnosis Active 2021-022021-12-27 Mem oria LOWER GI LOWER GI 02-15 21:46:00 l BLEEDING, BLEEDING, 00:00: Chinyere schneider HX OF HX OF 00 COLONIC D COLONIC D Active 12/16/2021 [facility] Diverticul Diverticul Disease Active 2021-[address] [facility] [address] [place] Lower GI Lower GI Disease Active 2021-02 [facility] Medical 00 [place] Hyperkalem Hyperkalem Disease Active M ethodi ia ia [facility] 00:00: Hospita 00 l Acute GI Acute GI Disease Active [facility] bleeding bleeding 06-12 [facility] 00:00: Hospita 00 l End stage End stage Disease Active [facility] renal renal 4-04 [facility] disease disease 00:00: t & Plan: of (HCCode) (HCCode) 00 Formattin Med icin g of this e note might be different from the original. Stable on HD. LAB LAB Diagnosis Active 2020-11-14 Mem oria Active 10-01 15:58:00 l 10/01/2020 11:00: Carlton escoto [address] 3RD REPUBLICAN 3RD REPUBLICAN Diagnosis Active 2020-10-02 Memoria LIFE LIFE 10-01 05:21:00 l FLIGHT FLIGHT 00:00: Jimmy Active 00 10/01/2020 [facility] GI bleed GI bleed Disease Active [facility] di 10-01 [facility] 00:00: Hospita 00 l Above knee [...] Active 2019-02 [facility] [place] knee knee 0-10 [place] replacemen replacemen 00:00: of t, total, t, total, 00 Medi sky bilateral bilateral e Calcific Calcific Disease Active 2019-02 [facility] [facility] aortic aortic 0-10 [place] valve valve 00:00: of stenosis stenosis 00 Medici n e 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 Stable symptoms on current regimen which are separate from his recent chest pain. 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 sclerosis sclerosis 00:00: t & Plan: o [...] Added automatic ally from request for surgery [id number] End stage End stage Disease Active [facility] renal renal 1-23 st disease on disease on 00:00: Ho spita dialysis dialysis 00 l Impaired Impaired Disease Active 2018-02 [facility] fasting fasting 1-17 [place] glucose glucose 00:00: Medicin e Urinary Urinary Disease Active 2018-02 [facility] frequency frequency 1-17 Natan ege [...] (severe) (severe) Arthritis Arthritis Disease Active 2017-02 [facility] of knee, of knee, 2 Colleg e left left 00:00: of 00 Medicin e 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 [facility] knee knee 03-24 [place] replacemen replacemen 00:00: of t, t, 00 Medicin bilateral bilateral e Anemia, Anemia, Disease Active 2017-02 Methodi unspecifie unspecifie 02-23 d d 00:00: Hospita 00 l Chronic Chronic Disease Active [facility] renal renal 6 [place] disease, disease, 00:00: of stage 4, stage 4, 00 Medici n severely severely e decreased decreased glomerular glomerular filtration filtration rate (GFR) rate (GFR) between between 15-29 15-29 mL/min/1.7 mL/min/1.7 3 square 3 square meter meter (HCCode) (HCCode) Essential Essential Disease Active Overview: [facility] hypertensi hypertensi 09-23 [facility] on on 00:00: g of this of note Medicin might be e different from the original. Stable and sometimes BP drops too muchLast Assessmen t & Plan: Formattin g of this note might be different from the original. Controlle d on the current regimen. Heart Heart Disease Active Overview: [facility] murmur murmur 09-23 [facility] 00:00: systolic of 00 murmur Medicin Grade 2/6 e over LSB , not radiating in any direction but audible over most of [place] l areaLast Assessmen t & Plan: Continue current Rx and control all risk factors including weight S/P S/P Disease Active Overview: [facility] angioplast angioplast 09-23 In 2009 C ollege y with y with 00:00: he had A of stent stent 00 stent Medicin deployed e in proximal RCA andCx had only Angioplas ty with good resultsLa st Assessmen t & Plan: Continue current Rx and control all risk factors including weight H/O H/O Disease Active Overview: [facility] unilateral unilateral 09-23 He had Co llege nephrectom nephrectom 00:00: nephrecto of y y 00 my long Medicin time ago e and the other kidney is weakLast Assessmen t & Plan: Monitor closely Rx and control all risk factors including weight Arthritis Arthritis Disease Active Overview: [facility] of knee, of knee, 09-23 He has Colleg e right right 00:00: severe of 00 arthritis Medicin with e joint replaceme nt and now has infection for which he is using penitentiary infection Antibioti c Last Assessmen t & [...] 00 N AT A N AT A [facility]ALTH [facility] FAC[facility] FACILITY Active 02/18/2014 Condition 02/18/2014 Medical Group HYPERTROPH HYPERTROP Condition Active 2012-022014-02-18 Memoria Y PROSTATE HY 2-13 10:35:00 l W/UR OBST PROSTATE 00:00: Mary nn & OTH LUTS W/UR OBST 00 & OTH LUTS Active 01/23/2013 Condition 02/18/2014 [facility] Group Illness Illness Diagnosis 2021-12-25 Memoria (finding) (finding) 23:24:01 l Diagnosis Jimmy 12/25/2021 [facility] Abdominal Abdominal Problem Resolve 2020-12-31 Memoria pain pain d 22:26:03 l (finding) (finding) Herm jennie Resolved Problem 12/31/2020 Medical Group Chronic Chronic Problem Resolve 2020-12-31 M emoria kidney kidney d 22:26:03 l disease disease Jimmy stage 3 stage 3 (disorder) (disorder) Resolved Problem 12/31/2020 Medical Group Degenerati Degenerat Problem Resolve 2020-12-31 Memoria ve emmanuel d 22:26:03 l disorder disorder Carlton n of macula of macula (disorder) (disorder) Resolved Problem 12/31/2020 RT EYE [facility] Procedure Problem Resolve 2020-12-31 M emoria on heart Procedure d 22:26:03 l (procedure on heart Herm jennie ) (procedure ) Resolved Problem 12/31/2020 STENT PLACEMENT [facility] Insomnia Insomnia Problem Resolve 2020-12-31 Memoria (disorder) (disorder) d 22:26:03 l Resolved [place] Problem 12/31/2020 [facility] Urinary Urinary Problem Resolve 2020-12-31 M emoria tract tract d 22:26:03 l infectious infectious He rmann disease disease (disorder) (disorder) Resolved Problem 12/31/2020 [facility] Atheroscle Atheroscl Problem Active 2020-12-31 Memoria rosis of erosis of 22:26:03 l coronary coronary Carlton n artery artery (disorder) (disorder) Active Problem 12/31/2020 Data migrated from valuescopecity on 07/10/14. [facility] Gastroesop Gastroeso Problem Active 2020-12-31 Memoria hageal phageal 22:26:03 l reflux reflux [place] disease disease (disorder) (disorder) Active Problem 12/31/2020 Data migrated from valuescopecity on 07/10/14. [facility] Benign Benign Problem Active 2021-12-25 Andres dora prostatic prostatic 23:24:01 l hyperplasi hyperplasi He rmann a a (disorder) (disorder) Active [facility]20[facility] Chronic Problem Active 2021-12-25 Me moria infectious infectious 23:24:01 l disease disease [place] (disorder) (disorder) Active Problem 12/25/2021 [facility] Coronary Coronary Problem Active 2021-12-25 Memoria arterioscl arterioscl 23:24:01 l erosis erosis Jimmy (disorder) (disorder) Active Problem 12/25/2021 [facility] Diabetes Diabetes Problem Active 2021-12-25 Memoria mellitus mellitus 23:24:01 l type 2 type 2 Jimmy (disorder) (disorder) Active Problem 12/25/2021 Automatica lly added by Discern Expert with order of Add Problem Diabetes Type II on December 01, 2018 14:23:39 CDT with order ID: [id number] 9.0 entered by Lida Mukherjee. Medical [facility] Dyslipidem Problem Active 2021-12-25 M emoria ia Dyslipidem 23:24:01 l (disorder) ia [place] n (disorder) Active Problem 12/25/2021 [facility] History of History Problem Active 2021-12-25 Memoria colectomy of 23:24:01 l (situation colectomy Her garcia ) (situation ) Active Problem 12/25/2021 [facility] Hypertensi Hypertens Problem Active 2021-12-25 Memoria ve emmanuel 23:24:01 l disorder, disorder, Herm jennie systemic systemic arterial arterial (disorder) (disorder) Active Problem 12/25/2021 Data migrated from [facility] on 07/10/14. Medical [facility] Obesity Obesity Problem Active 2021-12-25 Me moria (disorder) (disorder) 23:24:01 l Active [place] Problem 12/25/2021 [facility] Prosthetic Prostheti Problem Active 2021-12-25 Memoria joint c joint 23:24:01 l infection infection Herm jennie (disorder) (disorder) Active Problem 12/25/2021 Medical [facility] ILLNESS, ILLNESS, Diagnosis Active 2021-12-16 Memoria UNSPECIFIE UNSPECIFIE 05:39:00 l D D Active [facility] GASTROINTE Diagnosis Active 2021-12-27 Memoria STINAL GASTROINTE 21:46:00 l HEMORRHAGE STINAL [place] n , HEMORRHAGE UNSPECIFIE , D UNSPECIFIE D Active [facility] PERSONAL PERSONAL Diagnosis Active 2021-12-27 Memoria HISTORY OF HISTORY OF 21:46:00 l OTHER OTHER [place] DISEASES DISEASES OF TH OF TH Active [facility] DYSLIPIDEM DYSLIPIDE Condition Active 2014-02-18 Memoria IA RUMA Active 10:35:00 l Condition [place] 02/18/2014 Medical Group GERD GERD Condition Active 2014-02-18 Mem oria Active 10:35:00 l Condition [place] 02/18/2014 Medical Group ASCVD ASCVD Condition Active 2014-02-18 Mem oria Active 10:35:00 l Condition [place] 02/18/2014 [facility] Group CAD CAD Condition Active 2014-02-18 Mem oria Active 10:35:00 l Condition [place] 02/18/2014 Medical Group CHRONIC CHRONIC Condition Active 2014-02-18 Memoria KIDNEY KIDNEY 10:35:00 l DISEASE DISEASE [place] STAGE III STAGE III (MODERATE) (MODERATE) Active Condition 02/18/2014 Medical Group HYPERTENSI HYPERTENS Condition Active 2014-02-18 Memoria ON ION Active 10:35:00 l Condition [place] 02/18/2014 [facility] Group Allergies, Adverse Reactions, Alerts Allergy Allergy Status Severity Reaction(s) Onset Inactive Treating Comm ents Source Name Type Date Date Clinician Iodine FA Active [place] 2020-0 [facility] and 05-13 Clear Iodide 00:00: Smith Containi 00 [facility] shellfis FA Active [place] 2020-0 [facility] h 05-13 Clear derived 00:00: [place] 00 [facility] PINICILL DA Active [place] ITCHING 0 [facility] IN 05-13 Clear 00:00: Smith 00 [facility] No Known DA Active U 2020-0 [facility] Allergie 05-13 [place] s 00:00: d 00 [facility] No Known DA Active U 2020-0 [facility] Allergie - [place] s 00:00: d 00 [facility] Iodine FA Active [place] DIARRHEA [facility] and 05-13 [place] Iodide 00:00: d Containi 00 [facility] Produc shellfis FA Active SV SWELLING 2020-0 [facility] h 05-13 [place] derived 00:00: d 00 [facility] Iodine Propensi Active Rash 2020-0 Univers ty to 9-30 ity of adverse 00:00: [place] reaction 00 [facility] Penicill Propensi Active Anaphylaxis 2020-0 U nivers ins ty to 9-30 ity of adverse 00:00: [place] reaction 00 [facility] IODINE DRUG Active Rash 2020-0 Univers INGREDI 9-30 ity of 00:00: [place] 00 [facility] PENICILL Drug Active Anaphylaxis 2020-0 Uni vers INS Class 9-30 ity of 00:00: [place] 00 [facility] SHELLFIS DRUG Active Diarrhea 2020-0 Univer s H INGREDI 9-30 ity of DERIVED 00:00: [place] 00 [facility] Shellfis Propensi Active Nausea 2020-0 Univer s h ty to and/or 30 ity of Derived adverse Vomiting 00:00: [place] reaction 00 Medical s Branch Penicill Propensi Active Anaphylaxis U nivers ins ty to 11-10 ity of adverse 00:00: [place] reaction 00 Medical s Branch Penicill Propensi Active 2017-02 [facility] ins ty to 2-10 College [...] adverse 00:00: Medical reaction 00 Center s EICOSAPE Allergy Active [facility] NTAENOIC 8-13 ACID 00:00: 00 Shellfis Propensi Active Nausea And 2015-02 Me [...] adverse 00:00: Medical reaction 00 Center s ATORVAST Allergy Active [facility] ATIN 2-24 00:00: 00 SHELLFIS Allergy Active Diarrhea [facility] H 5-29 CONTAINI 00:00: NG 00 PRODUCTS Shellfis Propensi Active Diarrhea[facility] Nausea And 07-09 [facility] Containi adverse Vomiting 00:00: Medic al ng reaction 00 Center Products s Penicill Propensi Active Hives, unknown [facility] ty to Anaphylaxis 07-09 [facility] adverse 00:00: Medical reaction 00 Center s PENICILL Allergy Active High Hives [facility] INS 07-09 00:00: 00 Penicill Propensi Active Hives, unknown [facility] ins ty to Anaphylaxis 07-09 [facility] adverse 00:00: Medical reaction 00 Center s Shellfis Propensi Active Diarrhea, [facility] to Nausea And 07-09 [facility] Containi adverse Vomiting 00:00: Medic al ng reaction 00 Center Products s penicill penicill Active Memori a ins<sup> ins<sup> l 1</sup> 1</sup> [place] iodine<s iodine<s Active Memori a up>2</lee up>2</lee l p> p> Jimmy PCN PCN Active Memoria l [place] IODINE IODINE Active Memoria l [place] Family History Family Member Diagnosis Comments Start Date Stop Date Source Natural father Heart disease [facility] Natural mother COPD [facility] Social History Social Habit Start Date Stop Date Quantity Comments Source Exposure to 2021-11-29 2021-12-[address] [facility] SARS-CoV-2 00:00:00 16:30:00 [facility] (event) Alcohol intake 2021-06-13 2021-06-13 Current Religious 00:00:00 00:00:00 non-drinker of Hospital alcohol (finding) Social History 2015-01-31 2015-01-31 [facility] 21:49:01 21:49:01 Tobacco use and 2014-07-09 2014-07-[address] Marli kes exposure 00:00:00 00:00:00 [facility] Sex Ass[birth year] At [birth year] Religious 00:00:00 00:00:00 Hospital Smoking Status Start Date Stop Date Source Tobacco smoking status [facility] Tobacco smoking consumption [facility] Medical unknown Branch Medications Ordered Filled Start Stop Current Ordering Indication Dosage Frequency Signature Comments Components Source Medication Medication Date Date Medication? Clinician (SIG) Name Name tramadol 50 2021-02 Yes 50 mg = 1 M emoria mg oral 1-11 tab, PO, l tablet 21:50: Q12H, PRN Carlton n 00 Pain Score 7-10, # 12 tab, 0 Refill(s), Pharmacy: [facility] [id number], 172.72, cm, 12/16/21 5:50:00 CDT, Height, 86.6, kg, 12/16/21 5:50:00 CDT, Weight hydrocortis 2021-02 Yes 25 mg = 1 M emoria one 25 mg 1-11 supp, [place], l rectal 21:49: BID, PRN [place] suppository 00 Hemorrhoid s, # 24 supp, 0 Refill(s), Pharmacy: [facility] [id number], 172.72, cm, 12/16/21 5:50:00 CDT, Height, 86.6, kg, 12/16/21 5:50:00 CDT, Weight polyethylen 2021-02 Yes 17 gm, PO, Memoria e glycol 1-11 BID, # 255 l 3350 oral 21:49: gm, 0 [place] powder for 00 Refill(s), reconstitut Pharmacy: ion [facility] [id number], 172.72, cm, 12/16/21 5:50:00 CDT, Height, 86.6, kg, 12/16/21 5:50:00 CDT, Weight Flagyl 500 2021-02 Yes 500 mg = 1 M emoria mg oral 1-11 tab, PO, l tablet 21:48: TID, X 8 Jimmy 00 day, # 24 tab, 0 Refill(s), Pharmacy: [facility] [id number], 172.72, cm, 12/16/21 5:50:00 CDT, Height, 86.6, kg, 12/16/21 5:50:00 CDT, Weight docusate 2021-02 Yes 100 mg = 1 Mem oria sodium 100 1-11 cap, PO, l mg oral 21:48: Daily, # Carlton n capsule 00 30 cap, 0 Refill(s), Pharmacy: [facility] [id number], 172.72, cm, 12/16/21 5:50:00 CDT, Height, 86.6, kg, 12/16/21 5:50:00 CDT, Weight ciprofloxac 2021-02 Yes 500 mg = 1 Memoria in 500 mg -11 tab, PO, l oral tablet 21:46: Daily, X 8 Jimmy 00 day, # 8 tab, 0 Refill(s), Pharmacy: [facility] [id number], 172.72, cm, 12/16/21 5:50:00 CDT, Height, 86.6, kg, 12/16/21 5:50:00 CDT, Weight prednisoLON 2021-02 Yes 1 drp, Andres dora E sodium 02-19 LEFT EYE, l phosphate 22:31: BID, 0 Carlton n ophthalmic 00 Refill(s) 1% solution moxifloxaci 2021-02 Yes 1 drp, Andres dora n 0.5% 02-19 LEFT EYE, l ophthalmic 22:31: BID, 0 Mary nn solution 00 Refill(s) bromfenac 2021-02 Yes 1 drp, Memori a 0.075% 02-19 LEFT EYE, l ophthalmic 22:31: BID, 0 Mary nn solution 00 Refill(s) timolol 2021-02 Yes 1 drp, Memoria maleate 09 LEFT EYE, l 0.5% 22:17: BID, 0 Jimmy preservativ 00 Refill(s) e-free ophthalmic solution COLESEVELAM 2021-02 Yes 3.75g Take 3.[address] [...] 100 mg 02-11 [facility] Chew 10:59: [facility] Center niacin 500 2021-02 Yes [address] [facility] CR 02-11 [facility] capsule 10:59: Medical Center losartan 2021-02 Yes 50mg QD Take [address] (COZAAR) 50 02-11 by mouth Luke s MG tablet 10:59: daily. Medica l 52 Center sertraline 2021-02 Yes 50mg Take [address] (ZOLOFT) 50 02-11 by mouth. Cooc es MG tablet 10:59: Medical 52 Center aspirin 81 2021-02 Yes 81mg QD Take [address] MG EC 02-11 by mouth [facility] tablet 10:59: daily. Medical 52 Center furosemide 2021-02 Yes 40mg Take [address] (LASIX) 40 02-11 by mouth. Luke s MG tablet 10:59: Medical Center B complex 2021-02 Yes 1{capsu Take [address] 11-folic-C- 02-11 le} capsule by Marli guillaume biot-zinc 10:59: mouth as Medi raman (Dialyvite) 52 needed Center 1-100-300-5 With 0 dialysis mg-mg-mcg-m day. g Tab gabapentin 2021-02 Yes 300mg Take [address] (NEURONTIN) 1-01 mg by [facility] 300 MG 10:59: mouth. Medical capsule [address] [place] tamsulosin 2021-02 Yes .4mg Take 0.[address] (FLOMAX) 1-01 mg by [facility] 0.4 mg Cap 10:59: mouth. Medic al 24 hr 52 Center capsule COLESEVELAM 2021-02 Yes 3.75g Take 3.[address] [...] 60 MG 10:59: daily. Medical capsule 52 [place] coenzyme 2021-02 Yes [address] Q10 100 mg 02-11 [facility] Chew 10:59: Medical Center niacin 500 2021-02 Yes [address] MG CR 02-11 [facility] capsule 10:59: Medical 52 Center losartan 2021-02 Yes 50mg QD Take [address] (COZAAR) 50 02-11 by mouth [place] s MG tablet 10:59: daily. Medica l 52 Center sertraline 2021-02 Yes 50mg Take [address] (ZOLOFT) 50 02-11 by mouth. Coco es MG tablet 10:59: Medical Center aspirin 81 2021-02 Yes 81mg QD Take [address] MG EC 02-11 by mouth [facility] tablet 10:59: daily. Medical 52 Center furosemide 2021-02 Yes 40mg Take [address] (LASIX) 40 02-11 by mouth. [facility] MG tablet 10:59: Medical Center B complex 2021-02 Yes 1{capsu Take [address] 11-folic-C- 02-11 le} capsule by Marli guillaume biot-zinc 10:59: mouth as Medi raman (Dialyvite) 52 needed Center 1-100-300-5 With 0 dialysis mg-mg-mcg-m day. g Tab gabapentin 2021-02 Yes 300mg Take [address] (NEURONTIN) 1-01 mg by [facility] 300 MG 10:59: mouth. Medical capsule 52 [place] tamsulosin 2021-02 Yes .4mg Take 0.[address] (FLOMAX) 1-01 mg by [facility] 0.4 mg Cap 10:59: mouth. Medic al 24 hr 52 Center capsule COLESEVELAM 2021-02 Yes 3.75g Take 3.[address] [...] 60 MG 10:59: daily. Medical capsule 52 [place] coenzyme 2021-02 Yes [address] Q10 100 mg 02-11 [facility] Chew 10:59: [address] niacin 500 2021-02 Yes [address] [address] MG CR 02-11 [facility] capsule 10:59: Medical 52 Center losartan 2021-02 Yes 50mg QD Take [address] (COZAAR) 50 02-11 by mouth [place] s MG tablet 10:59: daily. Medica l 52 Center sertraline 2021-02 Yes 50mg Take [address] (ZOLOFT) 50 02-11 by mouth. Coco es MG tablet 10:59: Medical Center aspirin 81 2021-02 Yes 81mg QD Take [address] MG EC 02-11 by mouth [facility] tablet 10:59: daily. Medical 52 Center furosemide 2021-02 Yes 40mg Take [address] (LASIX) 40 02-11 by mouth. Luke s MG tablet 10:59: Medical Center B complex 2021-02 Yes 1{capsu Take [address] 11-folic-C- 02-11 le} capsule by Marli guillaume biot-zinc 10:59: mouth as Medi raman (Dialyvite) 52 needed Center 1100-300-5 With 0 dialysis mg-mg-mcg-m day. g Tab gabapentin 2021-02 Yes 300mg Take [address] (NEURONTIN) 1-01 mg by [facility] 300 MG 10:59: mouth. Medical capsule [address] [place] tamsulosin 2021-02 Yes .4mg Take 0.[address] (FLOMAX) 1-01 mg by [facility] 0.4 mg Cap 10:59: mouth. Medic al 24 hr 52 Center capsule COLESEVELAM 2021-02 Yes 3.75g Take 3.[address] [...] 60 MG 10:59: daily. Medical capsule [address] [place] coenzyme 2021-02 Yes [address] Q10 100 mg 02-11 [facility] Chew 10:59: Medical [address] [place] [id number] niacin 500 2021-02 Yes [address] MG CR 02-11 [facility] capsule 10:59: Medical 52 Center losartan 2021-02 Yes 50mg QD Take [address] (COZAAR) 50 02-11 by mouth Luke s MG tablet 10:59: [...] mouth. Luke s MG tablet 10:59: Medical Center B complex 2021-02 Yes 1{capsu Take [address] 11-folic-C- 02-11 le} capsule by Marli guillaume biot-zinc 10:59: mouth as Medi raman (Dialyvite) 52 needed Center 1100-300-5 With 0 dialysis mg-mg-mcg-m day. g Tab gabapentin 2021-02 Yes 300mg Take [address] [facility] [address] [facility] (NEURONTIN) 1-01 [facility] 300 MG 10:59: mouth. [facility] capsule 52 [facility] tamsulosin 2021-02 Yes .4mg Take 0.[address] [facility] (FLOMAX) 1-01 mg [facility] 0.4 mg Cap 10:59: mouth. Medic al 24 hr 52 Center capsule COLESEVELAM 2021-02 Yes 3.75g Take 3.[address] [facility] [...] Take [address] (CYMBALTA) 01 by mouth [facility] 60 MG 10:59: daily. [facility] capsule 52 [facility] coenzyme 2021-02 Yes [address] [facility] Q10 100 mg 02-11 [facility] Chew 10:59: Medical [address] [place] [address] niacin 500 2021-02 Yes [address] [facility] MG CR 1-01 [facility] capsule 10:59: Medical 52 [facility] losartan 2021-02 Yes 50mg QD Take [address] [facility] (COZAAR) 50 02-11 by mouth [facility] MG tablet 10:59: [...] mouth. [facility] MG tablet 10:59: [facility] B complex 2021-02 Yes 1{capsu Take [...] QD Take [address] [facility] in HCl 1-01 tablet [facility] (CIPRO) 500 00:00: (500 mg Med ical MG tablet 00 total) by Cente r mouth daily. ciprofloxac 2021-02 Yes 500mg QD Take [address] [facility] in HCl 1-01 tablet [facility] (CIPRO) 500 00:00: (500 mg Med ical MG tablet 00 total) by Cente r mouth daily. ciprofloxac 2021-02 Yes 500mg QD Take [address] [facility] in HCl 1-01 tablet [facility] (CIPRO) 500 00:00: (500 mg Med ical MG tablet 00 total) by Cente r mouth daily. ciprofloxac 2021-02 Yes 500mg QD Take [address] [facility] in HCl 1-01 tablet [facility] (CIPRO) 500 00:00: (500 mg Med ical MG tablet 00 total) by Cente r mouth daily. ciprofloxac 2021-02 Yes 500mg QD Take [address] [facility] in HCl 02-11 tablet [facility] (CIPRO) 500 00:00: (500 mg Med ical MG tablet 00 total) by Cente r mouth daily. metroNIDAZO 2021-02- No 500mg Q.[id number] Take [address] [facility] (FLAGYL) 02-11 [id number] tablet [facility] 500 MG 00:00: 23:59 3D (500 mg Medical tablet 00 :00 total) by Center mouth 3 (three) times daily for 7 days. metroNIDAZO 2021-02- Yes 500mg Q.[id number] Take [address] [facility] (FLAGYL) 02-11 [id number] tablet [facility] 500 MG 00:00: 23:59 3D (500 mg Medical tablet 00 :00 total) by Center mouth 3 (three) times daily for 7 days. metroNIDAZO 2021-02- Yes 500mg Q.[id number] Take [address] [facility] LE (FLAGYL) 02-11 [id number] tablet [facility] 500 MG 00:00: 23:59 3D (500 mg Medical tablet 00 :00 total) by Center mouth 3 (three) times daily for 7 days. metroNIDAZO 2021-02- Yes 500mg Q.[id number] Take [address] [facility] LE (FLAGYL) 02-11 [id number] [facility] 500 MG 00:00: 23:59 3D (500 mg Medical tablet 00 :00 total) by Center mouth 3 (three) times daily for 7 days. metroNIDAZO 2021-02- No 500mg Q.[id number] Take [address] [facility] (FLAGYL) 02-11 [id number] [facility] 500 MG 00:00: 23:59 3D (500 mg Medical tablet 00 :00 total) by Center mouth 3 (three) times daily for 7 days. zolpidem 2021-02- No 10mg Take [address] [facility] [address] [facility] (AMBIEN) 10 0-31 10-29 by mouth. [facility] mg tablet 21:40: 00:00 Medical 40 :00 Center zolpidem 2021-02- No 10mg Take [address] [facility] [address] [facility] (AMBIEN) 10 0-31 10-29 by mouth. [facility]li kes mg tablet 21:40: 00:00 Medical 40 :00 Center zolpidem 2021-02- No 10mg Take [address] [facility] [address] [facility] (AMBIEN) 10 0-31 10-29 by mouth. Marli kes mg tablet 21:40: 00:00 Medical 40 :00 Center zolpidem 2021-02- No 10mg Take [address] [facility] [address] [facility] (AMBIEN) 10 0-31 10-29 by mouth. Marli kes mg tablet 21:40: 00:00 Medical 40 :00 Center zolpidem 2021-02- No 10mg Take [address] [facility] [address] [facility] (AMBIEN) 10 0-31 10-29 by mouth. Marli kes mg tablet 21:40: 00:00 Medical 40 :00 [place] NIFEdipine 2021-02- No 60mg QD Take [address] [facility] (PROCARDIA- 0-29 10-29 by mouth Coco es XL) 60 MG 17:00: 00:00 daily. Medic al (OSM) 24 hr 17 :00 Center tablet NIFEdipine 2021-02- No 60mg QD Take [address] [facility] (PROCARDIA- 0-29 10-29 by mouth Coco es XL) 60 MG 17:00: 00:00 daily. Medic al (OSM) 24 hr 17 :00 Center tablet NIFEdipine 2021-02- No 60mg QD Take [address] [facility] (PROCARDIA- 0-29 10-29 by mouth Coco es XL) 60 MG 17:00: 00:00 daily. Medic al (OSM) 24 hr 17 :00 Center tablet NIFEdipine 2021-02- No 60mg QD Take [address] [facility] (PROCARDIA- 0-29 10-29 by mouth Coco es XL) 60 MG 17:00: 00:00 daily. Medic al (OSM) 24 hr 17 :00 Center tablet NIFEdipine 2021-02- No 60mg QD Take 60 [...] 12 :00 every l tablet evening. metoprolol No 12.5mg QD Take 12.5 [facility] tartrate 6-29 06-[address] (LOPRESSOR) 13:17: 00:00 mouth Hosp omega 25 mg 12 :00 every l tablet evening. metoprolol No 12.5mg QD Take 12.5 [facility] tartrate 6-29 06-[address] (LOPRESSOR) 13:17: 00:00 mouth Hosp omega 25 mg 12 :00 every l tablet evening. zolpidem Yes 10mg QD Take 10 mg [...] mouth Hospita capsule 01 nightly. l traZODone 2021-0 Yes 150mg QD Take 150 [facility] (DESYREL) 5-[address] 150 MG 15:42: mouth Hospita tablet 01 nightly. l zolpidem 2021-0 Yes 10mg QD Take 10 mg [facility] (AMBIEN) 10 5-[address] mg tablet 15:42: nightly. Hosp omega 01 NOTE: l Patient must have 10mg dose. Please order 10mg. gabapentin 2021-0 Yes 300mg QD Take 300 [facility] (NEURONTIN) 5-[address] 300 mg 15:42: mouth Hospita capsule 01 nightly. l traZODone 2021-0 Yes 150mg QD Take 150 [facility] (DESYREL) 5-[address] 150 MG 15:42: mouth Hospita tablet 01 nightly. l zolpidem 2021-0 Yes 10mg QD Take 10 mg [facility] (AMBIEN) 10 5-[address] mg tablet 15:42: nightly. Hosp omega 01 NOTE: l Patient must have 10mg dose. Please order 10mg. gabapentin 2021-0 Yes 300mg QD Take 300 [facility] (NEURONTIN) 5-[address] 300 mg 15:42: mouth Hospita capsule 01 nightly. l traZODone 2021-0 Yes 150mg QD Take 150 [facility] (DESYREL) 5-[address] 150 MG 15:42: mouth Hospita tablet 01 nightly. l zolpidem 2021-0 Yes 10mg QD Take 10 mg [facility] (AMBIEN) 10 5-[address] mg tablet 15:42: nightly. Hosp omega 01 NOTE: l Patient must have 10mg dose. Please order 10mg. gabapentin 2021-0 Yes 300mg QD Take 300 [facility] (NEURONTIN) 5-[address] 300 mg 15:42: mouth Hospita capsule 01 nightly. l traZODone 2021-0 Yes 150mg QD Take 150 [facility] (DESYREL) 5-[address] 150 MG 15:42: mouth Hospita tablet 01 nightly. l aspirin 2-0 2022- No 81mg QD Take 81 mg [facility] (ECOTRIN) 5-06 05-[address] 81 MG 15:42: 00:00 daily. Hospita enteric 01 :00 l coated tablet losartan 2022-0 2022- No 50mg Q.5D Take 50 mg [facility] (COZAAR) 50 5-06 05-05 by mouth 2 s t MG tablet 15:42: 00:00 (two) Hospit a 01 :00 times a l day. aspirin 2022-0 2022- No 81mg QD Take 81 mg [facility] (ECOTRIN) 5-06 05-[address] 81 MG 15:42: 00:00 daily. Hospita enteric 01 :00 l coated tablet losartan 2-0 2022- No 50mg Q.5D Take 50 mg [facility] (COZAAR) 50 5-06 05-05 by mouth 2 s t MG tablet 15:42: 00:00 (two) Hospit a 01 :00 times a l day. aspirin 2022-0 2022- No 81mg QD Take 81 mg [facility] (ECOTRIN) 5-06 05-[address] 81 MG 15:42: 00:00 daily. Hospita enteric 01 :00 l coated tablet losartan 2-0 2022- No 50mg Q.5D Take 50 mg [facility] (COZAAR) 50 5-06 05-05 by mouth 2 s t MG tablet 15:42: 00:00 (two) Hospit a 01 :00 times a l day. aspirin 2022-0 2022- No 81mg QD Take 81 mg [facility] (ECOTRIN) 5-06 05-[address] 81 MG 15:42: 00:00 daily. Hospita enteric 01 :00 l coated tablet losartan 2022-0 2022- No 50mg Q.5D Take 50 mg [facility] (COZAAR) 50 5-06 05-05 by mouth 2 s t MG tablet 15:42: 00:00 (two) Hospit a 01 :00 times a l day. aspirin 2022-0 2022- No 81mg QD Take 81 mg [facility] (ECOTRIN) 5-06 05-[address] 81 MG 15:42: 00:00 daily. Hospita enteric 01 :00 l coated tablet losartan 2022-0 2022- No 50mg Q.5D Take 50 mg Me [...] as l needed. Large fatty meal diphenhydrA No 25mg QD Take 25 mg [facility] [...] :00 needed for l tablet sleep. colesevelam 0 2021- No 2{packa Q24H Take 2 [facility] 3.75 gram 5-05 05-05 ge} Packages st powder in 15:42: 00:00 by mouth [facility] packet 52 :00 daily as l needed. Large fatty meal diphenhydrA 0 2021- No 25mg QD Take 25 mg [...] 25 mg 49 morning. l tablet sertraline 0 Yes 50mg QD Take 50 mg [facility] (ZOLOFT) 50 5-[address] MG tablet 15:42: daily. Hospit a 49 l tamsulosin 2021-0 Yes .4mg QD Take 0.4 [facility] (FLOMAX) 5-[address] 0.4 mg 15:42: mouth Hospita capsule 49 every l morning. clopidogreL 0 Yes 75mg QD Take 75 mg [facility] (PLAVIX) 75 5-[address] mg tablet 15:42: every Hospita 49 morning. l vit A/vit 0 Yes 1{tbl} Q.5D Take 1 Meth herminia C/vit 5-[address] E/zinc/bravo 15:42: mouth 2 [facility]da er 49 (two) l (PRESERVISI times a ON AREDS day. ORAL) fluticasone 0 Yes 1{spray Q.5D 1 spray [facility] propionate [...] ORAL) Saturday, and Saturday. After dialysis metoprolol 0 Yes 25mg QD Take 25 mg M [facility]i tartrate 5-[address] (LOPRESSOR) 15:42: every Hospi ta 25 mg 49 morning. l tablet sertraline 0 Yes 50mg QD Take 50 mg [facility] (ZOLOFT) 50 5-[address] MG tablet 15:42: daily. Hospit a 49 l tamsulosin 2021-0 Yes .4mg QD Take 0.4 [facility] (FLOMAX) 5-[address] 0.4 mg 15:42: mouth Hospita capsule 49 every l morning. clopidogreL 2022-0 Yes 75mg QD Take 75 mg [facility] (PLAVIX) 75 5-[address] mg tablet 15:42: every Hospita 49 morning. l vit A/vit 0 Yes 1{tbl} Q.5D Take 1 Meth herminia [...] st mg tablet 15:42: daily as Hosp moega 49 needed l (fluid overload). folic Yes 1{capsu Take 1 [facility] acid/vit B 5-05 le} capsule by st complex and 15:42: mouth Hospi ta C 49 Every l (DIALYVITE Saturday, ORAL) Saturday, and Saturday. After dialysis metoprolol 0 Yes 25mg QD Take 25 mg M [facility]i tartrate 5-[address] (LOPRESSOR) 15:42: every Hospi ta 25 mg 49 morning. l tablet sertraline Yes 50mg QD Take 50 mg [facility]i (ZOLOFT) 50 5-[address] MG tablet 15:42: daily. Hospit a 49 l tamsulosin 0 Yes .4mg QD Take 0.4 [facility] (FLOMAX) 5-[address] 0.4 mg 15:42: mouth Hospita capsule 49 every l morning. clopidogreL 0 Yes 75mg QD Take 75 mg [facility] (PLAVIX) 75 5-[address] mg tablet 15:42: every Hospita 49 morning. l vit A/vit 0 Yes 1{tbl} Q.5D Take 1 Meth herminia [...] day as spray needed (allergies ). furosemide 0 Yes 40mg Q24H Take 40 mg [facility] (LASIX) 40 5-[address] mg tablet 15:42: daily as Hosp omega 49 needed l (fluid overload). folic Yes 1{capsu Take 1 [facility] acid/vit B 5-05 le} capsule by st complex and 15:42: mouth Hospi ta C 49 Every l (DIALYVITE Saturday, ORAL) Saturday, and Saturday. After dialysis metoprolol 0 Yes 25mg QD Take 25 mg [facility]i tartrate 5-[address] (LOPRESSOR) 15:42: every Hospi ta 25 mg 49 morning. l tablet sertraline Yes 50mg QD Take 50 mg [facility]i (ZOLOFT) 50 5-[address] MG tablet 15:42: daily. Hospit a 49 l tamsulosin 0 Yes .4mg QD Take 0.4 [facility] (FLOMAX) 5-[address] 0.4 mg 15:42: mouth Hospita capsule 49 every l morning. clopidogreL 0 Yes 75mg [...] day as spray needed (allergies ). furosemide 0 Yes 40mg Q24H Take 40 mg M [...] Q.5D Take 3 [facility] (COZAAR) 25 5-05 06-[address] MG tablet 00:00: 04:59 (75 mg Hospi ta 00 :00 total) by l mouth 2 (two) times a day for 30 days. losartan 2021- No 75mg Q.5D Take 3 [facility] (COZAAR) 25 5-05 06-[address] MG tablet 00:00: 04:59 (75 mg Hospi ta 00 :00 total) by l mouth 2 (two) times a day for 30 days. losartan 2021- No 75mg Q.5D Take 3 [facility] (COZAAR) 25 5-05 06-[address] MG tablet 00:00: 04:59 (75 mg Hospi ta 00 :00 total) by l mouth 2 (two) times a day for 30 days. losartan 2021- No 75mg Q.5D Take 3 [facility] (COZAAR) 25 5-05 06-[address] MG tablet 00:00: 04:59 (75 mg Hospi ta 00 :00 total) by l mouth 2 (two) times a day for 30 days. losartan 2021- No 75mg Q.5D Take 3 [facility] (COZAAR) 25 5-05 06-[address] MG tablet 00:00: 04:59 (75 mg Hospi ta 00 :00 total) by l mouth 2 (two) times a day for 30 days. metroNIDAZO 2021-2021- No [id number] 500mg Q.82101123 Take 1 [facility] (FLAGYL) 06-[id number] 500 MG 00:00: 04:59 3D (500 mg Hospita tablet 00 :00 total) by l mouth 3 (three) times a day for 8 days. ciprofloxac 2021-2021- No [id number] 500mg Q.5D Take 1 [facility] in (CIPRO) 06-[address] 500 MG 00:00: 04:59 (500 mg Hospita tablet 00 :00 total) by l mouth 2 (two) times a day for 8 days. metroNIDAZO 2021-2021- No [id number] 500mg Q.54568933 Take 1 [facility] (FLAGYL) 06-[id number] 500 MG 00:00: 04:59 3D (500 mg Hospita tablet 00 :00 total) by l mouth 3 (three) times a day for 8 days. ciprofloxac 2021-2021- No [id number] 500mg Q.5D Take 1 [facility] in (CIPRO) 06-[address] 500 MG 00:00: 04:59 (500 mg Hospita tablet 00 :00 total) by l mouth 2 (two) times a day for 8 days. metroNIDAZO 2021-2021- No [id number] 500mg Q.03523511 Take 1 [facility] (FLAGYL) 06-[id number] 500 MG 00:00: 04:59 3D (500 mg Hospita tablet 00 :00 total) by l mouth 3 (three) times a day for 8 days. ciprofloxac 2021-2021- No [id number] 500mg Q.5D Take 1 [facility] in (CIPRO) 06-[address] 500 MG 00:00: 04:59 (500 mg Hospita tablet 00 :00 total) by l mouth 2 (two) times a day for 8 days. metroNIDAZO 2021-0 2021- No [id number] 500mg Q.27376950 Take 1 [facility] (FLAGYL) 06-[id number] 500 MG 00:00: 04:59 3D (500 mg Hospita tablet 00 :00 total) by l mouth 3 (three) times a day for 8 days. ciprofloxac 2-0 2- No [id number] 500mg Q.5D Take 1 [facility] in (CIPRO) 06-[address] 500 MG 00:00: 04:59 (500 mg Hospita tablet 00 :00 total) by l mouth 2 (two) times a day for 8 days. metroNIDAZO 2021-0 2021- No [id number] 500mg Q.23780889 Take 1 [facility] (FLAGYL) 06-[id number] 500 MG 00:00: 04:59 3D (500 mg Hospita tablet 00 :00 total) by l mouth 3 (three) times a day for 8 days. ciprofloxac 2021-0 2021- No [id number] 500mg Q.5D Take 1 [facility] in (CIPRO) 06-[address] 500 MG 00:00: 04:59 (500 mg Hospita tablet 00 :00 total) by l mouth 2 (two) times a day for 8 days. acetaminoph 2022-0 2022- No 2000mg QD Take 2,000 [facility] en 5-03 05-[address] (TYLENOL) 13:59: 00:00 mouth Hospit a 500 MG 20 :00 daily. l tablet acetaminoph 2022-0 2022- No 2000mg QD Take 2,000 [facility] en 5-03 05-[address] (TYLENOL) 13:59: 00:00 mouth Hospit a 500 MG 20 :00 daily. l tablet acetaminoph 2022-0 2022- No 2000mg QD Take 2,000 [facility] en 5-03 05-[address] (TYLENOL) 13:59: 00:00 mouth Hospit a 500 MG 20 :00 daily. l tablet acetaminoph 2022-0 2022- No 2000mg QD Take 2,000 [facility] en 5-03 05-[address] (TYLENOL) 13:59: 00:00 mouth Hospit a 500 MG 20 :00 daily. l tablet acetaminoph 2022-0 2022- No 2000mg QD Take 2,000 [facility] en 5-03 05-[address] (TYLENOL) 13:59: 00:00 mouth Hospit a 500 MG 20 :00 daily. l tablet zolpidem 2020-02 Yes 10 mg = 1 M emoria mg oral 1-18 tab, PO, l tablet 20:08: Bedtime, Jimmy 00 PRN for sleep, # 30 tab, 0 Refill(s), Pharmacy: [facility] [id number], 170.18, cm, 06/22/19 13:48:00 CDT, Height, 86.818, kg, 06/22/19 13:48:00 CDT, Weight Trazodone 2020-02 Yes = 1 tab, Andres dora Hydrochlori 0-28 PO, l de 50 MG 17:53: Bedtime, # Her garcia Oral Tablet 00 90 tab, 1 Refill(s), Pharmacy: [facility] [id number], 170.18, cm, 06/22/19 13:48:00 CDT, Height, 86.818, kg, 06/22/19 13:48:00 CDT, Weight trazodone 2020-02 Yes = 1 tab, Andres dora 50 mg oral 0-28 PO, l tablet 17:53: Bedtime, # Mary nn 00 90 tab, 1 Refill(s), Pharmacy: [facility] [id number], 170.18, cm, 06/22/19 13:48:00 CDT, Height, 86.818, kg, 06/22/19 13:48:00 CDT, Weight zolpidem 2020-02 Yes 10 mg = 1 M emoria mg oral 0-01 tab, PO, l tablet 22:04: Bedtime, [place] 00 PRN for sleep, # 30 tab, 0 Refill(s), Pharmacy: [facility] [id number], 170.18, cm, 06/22/19 13:48:00 CDT, Height, 86.818, kg, 06/22/19 13:48:00 CDT, Weight metoprolol Yes See Memoria tartrate 25 8-19 Instructio l mg oral 16:56: ns, 1 tab Mary nn tablet 00 in the am and 0.5 in the pm, # 135 ea, 3 Refill(s), Pharmacy: [facility] [id number], 170.18, cm, 06/22/19 13:48:00 CDT, Height, 86.818, kg, 06/22/19 13:48:00 CDT, Weight tamsulosin Yes = 1 cap, Mem oria 0.4 mg oral 7-28 PO, Daily, l capsule 15:55: # 90 Jimmy 00 unknown unit, 3 Refill(s), Pharmacy: [facility] [id number], 170.18, cm, 06/22/19 13:48:00 CDT, Height, 86.818, kg, 06/22/19 13:48:00 CDT, Weight pantoprazol Yes = 1 tab, Me moria e 40 mg 7-28 PO, Daily, l oral 15:53: # 90 tab, [place] enteric 00 3 coated Refill(s), tablet Pharmacy: [facility] [id number], 170.18, cm, 06/22/19 13:48:00 CDT, Height, 86.818, kg, 06/22/19 13:48:00 CDT, Weight sertraline Yes 50 mg = 1 Me moria 50 mg oral 7-28 tab, PO, l tablet 15:52: Daily, # [place] 00 90 tab, 3 Refill(s), Pharmacy: [facility] [id number], 170.18, cm, 06/22/19 13:48:00 CDT, Height, 86.818, kg, 06/22/19 13:48:00 CDT, Weight PreserVisio 0 Yes 0 Memori a n AREDS 2 7-28 Refill(s) l 15:34: Jimmy 00 gabapentin 2020-0 Yes 300 mg = 1 M emoria 300 mg oral 7-28 cap, PO, l capsule 15:32: TID, 0 Jimmy 00 Refill(s) furosemide 2020-0 Yes 40 mg = 1 Me moria 40 mg oral 7-28 tab, PO, l tablet 15:30: Daily, 0 Jimmy 00 Refill(s) aspirin 81 2020-0 Yes 81 mg = 1 Me moria mg tablet, 7-28 tab, PO, l enteric 15:29: Daily, # [place] n coated 00 90 tab, 3 Refill(s) gabapentin 2020- No 100mg Q.5D Take 100 M [facility]i (NEURONTIN) 2-13 02-[address] 100 mg 17:35: 00:00 mouth 2 Hospita capsule 37 :00 (two) l times a day. Take 2 capsules (total of 200 mg) in the evening sulfamethox 2020- No 800mg QD Take 800 [facility] azole/trime -13 02-[address] thoprim 17:35: 00:00 mouth Hospita (BACTRIM 37 :00 daily. l ORAL) zolpidem 2020- No 10mg QD Take 10 mg [facility] (AMBIEN) 10 03-26 02-[address] mg tablet 17:35: 00:00 nightly. Hos imelda 37 :00 l aspirin 2020- No 81mg QD Take 81 mg [facility] (ECOTRIN) 03-26-[address] 81 MG 17:35: 00:00 daily. Hospita enteric 37 :00 l coated tablet traZODone 2020- No 100mg QD Take 100 [facility] (DESYREL) - 02-[address] 100 MG 17:35: [...] (two) Hospita 31 times a l day. [place] twice daily diphenhydrA Yes 25mg Take 25 [...] (PRESERVISI times a ON . ORAL) metoprolol 0 2020- No 25mg Q.5D Take 1 Meth herminia tartrate 03-25-15 tablet (25 st (LOPRESSOR) 00:00: 04:59 mg total) Hospita 25 mg 00 :00 by mouth 2 l tablet (two) times a day for 30 days. gabapentin 2020-0 2020- No 300mg QD Take 1 Met [facility]odi (NEURONTIN) 03-25-[address] 300 mg 00:00: 04:59 (300 mg Hospita capsule 00 :00 total) by l mouth nightly for 30 days. aspirin 2020-0 2020- No 81mg Q.5D Take 1 [facility] (ECOTRIN) 03-25-15 tablet (81 st 81 MG 00:00: 04:59 mg total) Hospit a enteric 00 :00 by mouth 2 l coated (two) tablet times a day for 30 days. traZODone 0 2020- No 150mg QD Take 1 Meth herminia (DESYREL) -12 03-[address] 150 MG 00:00: 04:59 (150 mg Hospita tablet 00 :00 total) by l mouth nightly for 30 days. zolpidem 0 2020- No 5mg QD Take 1 Method i (AMBIEN) 5 12 03-15 tablet (5 st MG tablet 00:00: 04:59 mg total) Ho spita 00 :00 by mouth l nightly for 30 days. clopidogrel 2019-02 Yes TAKE ONE [facility] (PLAVIX) 75 2-07 TABLET BY Col lege MG Tablet 00:00: MOUTH of 00 DAILY Medicin e Multiple 2019-02 Yes Qd [facility] Vitamins-Mi 0-08 College nerals (EYE [...] zolpidem 2019-02 Yes 10mg Take 10 mg [facility] (AMBIEN) 5 0-08 by mouth Colle ge MG tablet 16:05: nightly as of 09 needed for Medicin Sleep. e Sulfamethox 2019-02 Yes Take by [facility] azole-Trime 0-08 mouth [place] thoprim 16:05: daily. of (BACTRIM 09 Medicin OR) e furosemide 2019-02 Yes 40mg Take 40 mg [facility] (LASIX) 40 0-08 by mouth Colle ge MG tablet 16:05: daily. of 09 Medicin e gabapentin 2019-02 Yes 100mg Take 100 [facility] (NEURONTIN) 0-08 mg by [place] 100 MG 16:05: mouth two of capsule 09 times Medicin daily. e DESVENLAFAX 2019-02- No Take by [facility] INE ER OR 0-08 10-08 mouth College 16:04: 00:00 daily. of 59 :00 Medicin e Coenzyme 2019-02 2020- No 1 po qd [facility] Q10 100 MG 0-08 11-18 College CHEW 16:04: 00:00 of 50 :00 Medicin e Niacin CR 2019-02 2020- No 1 po qd [facility] 500 MG CPCR 0-08 11-18 [place] 16:03: 00:00 of 53 :00 Medicin e Multiple 2019- Yes Qd [facility] Vitamins-Mi 0 College nerals (EYE 11:05: of VITAMINS Medicin OR) e Tamsulosin 2019-02 Yes 4mg 4 mg [facility] HCl 0.4 MG 0-08 daily. Qd Natan e[facility] CAPS 11:05: of 09 Medicin e FLUTICASONE 2019-02 Yes two times [facility] PROPIONATE, 0-08 daily. [facility] [employer] INHAL, 11:05: of INHALATION- Medicin B e pantoprazol 2019-02 Yes 40mg 40 mg [facility] 0-08 daily. qd College (PROTONIX) 11:05: of 40 MG 09 Medicin tablet e zolpidem 2019-02 Yes 10mg Take 10 mg [facility] (AMBIEN) 5 0-08 by mouth Colle ge MG tablet 11:05: nightly as of needed for Medicin Sleep. e Sulfamethox 2019-02 Yes Take by [facility] azole-Trime 0-08 mouth [place] thoprim 11:05: daily. of (BACTRIM 09 Medicin OR) e furosemide 2019-02 Yes 40mg Take 40 mg [facility] (LASIX) 40 0-08 by mouth Colle ge MG tablet 11:05: daily. of Medicin e gabapentin 2019-02 Yes 100mg Take 100 [facility] (NEURONTIN) 0-08 mg by [place] 100 MG 11:05: mouth two of capsule 09 times Medicin daily. e Colesevelam Yes TAKE [facility] HCl 3.75 g 11-03 DIRECTED Colle ge PACK 00:00: TWICE of 00 DAILY Medicin e Colesevelam Yes TAKE [facility] HCl 3.75 g 11-03 DIRECTED Colle ge PACK 00:00: TWICE of 00 DAILY Medicin e sulfamethox 2019-2020- No 1{tbl} QD Take 1 M ethodi azole-trime 11-02 02 tablet by thoprim 00:00: 00:00 mouth Hospita (Bactrim) 00 :00 daily. l 400-80 mg per tablet sulfamethox 2020- No TAKE ONE M ethodi azole-trime 7-18 09-[address] thoprim 00:00: 00:00 MOUTH Hospita (BACTRIM 00 :00 DAILY l DS) 800-160 mg per tablet metoprolol Yes TAKE ONE [facility] (LOPRESSOR) 1-24 TABLET BY Col lege 50 MG 00:00: MOUTH of tablet 00 TWICE A Medicin DAY e metoprolol Yes TAKE ONE [facility] (LOPRESSOR) 1-24 TABLET BY Col lege [...] Q10 100 mg 2-15 [facility] 17:11: [place] [id number] Center niacin 500 2016-02 Yes [address] [facility] CR 2-15 [facility] capsule 17:11: [address] COLESEVELAM 2016-02 Yes 3.75g Take 3.[address] HCL 2-15 g by mouth [facility] (WELCHOL 17:11: 2 (two) Medica l ORAL) 46 times Center daily with breakfast and dinner . coenzyme 2016-02 Yes [address] [facility] Q10 100 mg 2-15 [facility] Chew 17:11: [address] niacin 500 2016-02 Yes [address] [facility] MG CR 2-15 [facility] capsule 17:11: [place] [id number] Center zolpidem 2016-02 Yes 10mg Take 10 [...] 2020- No TAKE ONE [facility] (COZAAR) - 1008 TABLET BY Colle ge 100 MG 00:00: 00:00 MOUTH of tablet 00 :00 DAILY Medicin e tamsulosin 2014-0 Yes .4mg 0.[address] (FLOMAX) 5-23 [facility] 0.4 mg Cp24 00:00: Medica l 24 hr 00 Center capsule tamsulosin 2015-0 Yes .4mg 0.[address] (FLOMAX) 5-23 [facility] 0.4 mg Cp24 00:00: Medica l 24 hr 00 Center capsule tamsulosin 2015-0 2022- No .4mg 0.[address] [facility] (FLOMAX) 5-23 10-29 [facility] 0[facility] mg Cp24 00:00: 00:00 Medic al 24 hr 00 :00 Center capsule tamsulosin 2015-0 2022- No .4mg 0.[address] [facility]-23 10-29 [facility] mg Cp24 00:00: 00:00 Medic al 24 hr 00 :00 [facility] capsule tamsulosin 2014-0 2022- No .4mg 0.[address] [facility] ([facility] 5-23 10-29 [facility] 0[facility] mg Cp24 00:00: 00:00 Medic al 24 hr 00 :00 Center capsule tamsulosin 2014-0 2022- No .4mg 0.[address] [facility] 5-23 10-29 [facility] 0[facility] mg Cp24 00:00: 00:00 Medic al 24 hr 00 :00 [facility] capsule tamsulosin 2014-0 2022- No .4mg 0.[address] [facility] 5-23 10-29 [facility] mg Cp24 00:00: 00:00 Medic al 24 hr 00 :00 [facility] capsule pantoprazol 2015-0 Yes 40mg QD Take 40 [...] Medical 40 MG 00 Center tablet clopidogrel 2015-0 Yes QD daily . [facility] ([facility]) 75 [facility]-12 [facility] tablet 00:00: [facility] 00 [facility] fluticasone 0 Yes 2{spray Q.5D [address] [facility] ([facility]) 5-12 } by Nasal [facility] 50 00:00: route 2 Medical mcg/actuati 00 (two) Center on nasal times spray daily . metoprolol Yes 25mg Q.5D [address] [facility] (LOPRESSOR) 5-12 (two) [facility] 50 MG 00:00: times Medical tablet 00 daily . [facility] clopidogrel 2015-0 Yes QD daily . [facility] ([facility]) 75 5-12 [facility] tablet 00:[facility]: [facility] 00 [facility] fluticasone 0 Yes 2{spray Q.5D [address] [facility] (FLONASE) 5-12 } by Nasal [facility] 50 00:00: route 2 [facility] mcg/actuati 00 (two) Center on nasal times spray daily . metoprolol Yes 25mg Q.5D [address] [facility] (LOP[facility]) 5-12 (two) [facility] 50 MG 00:00: times Medical tablet 00 daily . [facility] clopidogrel 2015-0 Yes QD daily . [facility] ([facility]) 75 5-12 [facility] tablet 00:00: [facility] 00 [facility] clopidogrel 2015-0 Yes QD daily . [facility] ([facility]) 75 5-12 [facility] 00:[facility]: [facility] 00 [facility] fluticasone 2015-0 Yes 2{spray Q.5D [address] [facility] (FLONASE) 5-12 } by Nasal [facility] 00:00: route 2 [facility] mcg/actuati 00 (two) Center on nasal times spray daily . metoprolol Yes 25mg Q.5D [address] [facility] (LOPRESSOR) 5-12 (two) [facility] 50 MG 00:00: times Medical tablet 00 daily . [place] fluticasone Yes 2{spray Q.5D [address] [facility] (FLONASE) 5-12 } by [facility] 00:[facility]: route 2 Medical mcg/actuati 00 (two) Center on nasal times spray daily . metoprolol 0 Yes Q.5D 2 (two) [facility] (LOPRESSOR[facility] 5-12 times [facility] MG 00:00: daily . Medical tablet 00 Center nisoldipine Yes 34mg QD 34 mg [facility] 34 5-12 daily . [facility] 24 hr 00:00: Medical tablet 00 Center clopidogrel 2014-0 Yes QD daily . [facility] (PLAVIX) 75 5-12 [facility] tablet 00:00: Medical 00 Center fluticasone Yes 2{spray Q.5D [address] [facility] (FLONASE) 5-12 } by [facility] 00:00: route 2 Medical mcg/actuati 00 (two) Center on nasal times spray daily . metoprolol Yes 25mg Q.5D [address] [facility] (LOPRESSOR) 5-12 (two) [facility] MG 00:00: times Medical tablet 00 daily . [place] clopidogrel 0 Yes QD daily . [facility] (PLAVIX) 75 5-12 [facility] tablet 00:00: Medical 00 Center fluticasone Yes 2{spray Q.5D [address] [facility] (FLONASE) 5-12 } by [facility]al [facility] 00:00: route 2 Medical mcg/actuati 00 (two) Center on nasal times spray daily . metoprolol Yes 25mg Q.5D [address] [facility] (LOPRESSOR) 5-12 (two) [facility] MG 00:00: times Medical tablet 00 daily . [place] clopidogrel 0 Yes QD daily . [facility] (PLAVIX) 75 5-12 [facility] tablet 00:00: Medical 00 Center fluticasone 0 Yes 2{spray Q.5D [address] [facility] (FLONASE) 5-12 } by [facility]al [facility] 00:00: route 2 Medical mcg/actuati 00 (two) Center on nasal times spray daily . metoprolol 0 Yes Q.5D 2 (two) [facility] (LOPRESSOR) 5-12 times [facility] MG 00:00: daily . [facility] tablet [facility] 5-12 daily . [facility] 24 hr 00:00: [facility] tablet 00 [facility] 2021- No 34mg QD [address] [facility] (SULAR) 34 5-12 10-29 daily . [facility] 24 hr 00:00: 00:00 Medical tablet 00 :00 [place] nisoldipine 2021- No 34mg QD [address] [facility] (SULAR) 34 5-12 10-29 daily . [facility] 24 hr 00:00: 00:00 [facility] tablet 00 :00 [facility]- No 34mg QD [address] [facility] (SULAR) 34 5-12 10-29 daily . [facility] 24 hr 00:00: 00:00 [facility] tablet 00 :00 [facility]- No 34mg QD [address] [facility] (SULAR) 34 5-12 10-29 daily . [facility] 24 hr 00:00: 00:00 Medical tablet 00 :00 [place] nisoldipine No 34mg QD [address] [facility] (SULAR) 34 5-12 10-29 daily . [facility] 24 hr 00:00: 00:00 Medical tablet 00 :00 [place] metoprolol 2020- No 25mg QD Take 25 mg [facility] tartrate 06-[address] (LOPRESSOR) 00:00: 00:00 daily. Hos imelda 50 MG 00 :00 l tablet CLOPIDOGREL Yes TAKE 1 Andres dora BISULFATE 1-08 TABLET BY l 75 MG TABS 10:35: MOUTH [place] n 00 DAILY NISOLDIPINE Yes TAKE 1 Andres dora ER 34 MG 1-08 TABLET BY l [id number] 10:35: MOUTH Jimmy 00 DAILY LOSARTAN Yes TAKE 1 [facility] POTASSIUM 1-08 TABLET BY l 100 MG TABS 10:35: MOUTH Mary nn 00 DAILY CYMBALTA 60 Yes TAKE 1 Andres dora MG CPEP 1-08 TABLET BY l 10:35: MOUTH [place] 00 DAILY PANTOPRAZOL Yes TAKE 1 Andres dora E SODIUM 40 1-08 TABLET BY l MG TBEC 10:35: MOUTH [place] 00 DAILY CLOPIDOGREL Yes TAKE 1 Andres dora BISULFATE 1-08 TABLET BY l 75 MG TABS 10:35: MOUTH [place] n DAILY NISOLDIPINE Yes TAKE 1 Andres dora ER 34 MG 1-08 TABLET BY l [id number] 10:35: MOUTH Jimmy 00 DAILY LOSARTAN Yes TAKE 1 [facility] POTASSIUM 1-08 TABLET BY l 100 MG TABS 10:35: MOUTH Mary DAILY CYMBALTA 60 Yes TAKE 1 Andres [...] TABLET BY l MG TABS 14:45: MOUTH [place] DAILY LOSARTAN 2012-02 Yes TAKE 1 [facility] POTASSIUM 2-13 TABLET BY l 100 MG TABS 14:45: MOUTH Mary nn DAILY WELCHOL 2012-02 Yes TAKE 1 [facility] 3.75 GM 2-13 TABLET BY l PACK 14:45: MOUTH Jimmy DAILY CYMBALTA 60 2012-02 Yes TAKE 1 Andres dora MG CPEP 2-13 TABLET BY l 14:45: MOUTH [place] 00 DAILY PANTOPRAZOL 2012-02 Yes TAKE 1 Andres dora E SODIUM 40 2-13 TABLET BY l MG TBEC 14:45: MOUTH Jimmy 00 DAILY METOPROLOL 2012-02 Yes TAKE 1 Mem[facility] ia TARTRATE 50 2-13 TABLET BY l MG TABS 14:45: MOUTH [place] 00 DAILY LOSARTAN 2012-02 Yes TAKE 1 [facility] POTASSIUM 2-13 TABLET BY l 100 MG TABS 14:45: MOUTH Mary nn 00 DAILY WELCHOL 2012-02 Yes TAKE 1 [facility] 3.75 GM 2-13 TABLET BY l PACK 14:45: MOUTH [place] 00 DAILY CYMBALTA 60 2012-02 Yes TAKE [...] CAPS 2012-02 Yes [facility] 2-13 l 00:00: [place] 00 ASPIRIN 81 2012-02 Yes [facility] MG TABS 2-13 l 00:00: [place] 00 FLOMAX 0.4 2012-02 Yes one every Me moria MG CAPS 2-13 evening. l 00:00: [place] 00 LUNESTA 3 2012-02 Yes TAKE 1 Memori a MG TABS 2-13 TABLET BY l 00:00: MOUTH Jimmy 00 DAILY LUNESTA 3 2012-02 Yes TAKE 1 Mem[facility] a MG TABS 2-13 TABLET BY l 00:00: MOUTH [place] 00 DAILY FLOMAX 0.4 2012-02 No one every Me moria MG CAPS 2-13 evening. l 00:00: [place] 00 PLAVIX 75 2012-02 No TAKE 1 Memori a MG TABS 2-13 TABLET BY l 00:00: MOUTH [place] 00 DAILY OCUVITE EYE 2012-02 Yes Memori a + MULTI 2-13 l TABS 00:00: [place] 00 COQ10 CAPS 2012-02 Yes [facility] 2-13 l 00:00: [place] 00 ASPIRIN 81 2012-02 Yes [facility] MG TABS 2-13 l 00:00: [place] 00 FLOMAX 0.4 2012-02 Yes one every [...] moria MG CAPS 2-13 evening. l 00:00: [place] 00 FLUTICASONE Yes 1 spray in [facility] [...] Date Status Commen ts Source Name Name [id number] 2020-07-04 Completed Andres rial [id number] 00:00:00 [facility] jennie [id number] 2020-06-09 Completed Andres rial [id number] 00:00:00 [facility] jennie influenza virus 2018-08-11 Completed [facility] vaccine, inactivated 00:00:00 [place] jennie influenza virus 2017-02-11 Completed [facility] vaccine, 00:00:00 Jimmy inactivated<sup>1</s up> Hx influenza 2010-10-16 Completed [facility] vaccine-unspecified< 14:23:57 [facility] jennie sup>2</sup> influenza 2010-10-16 Completed [facility] immunization (Flu 14:23:57 Jimmy Vanedra) has been administered influenza 2010-10-16 Completed [facility] immunization (Flu 14:23:57 Jimmy Vax) has been administered pneumococcal 2007-06-14 Completed [facility] 23-valent 14:23:57 Jimmy vaccine<sup>3</sup> pneumococcal 2007-06-14 Completed [facility] immunization 14:23:57 Jimmy administered pneumococcal 2007-06-14 Completed [facility] immunization 14:23:57 Jimmy administered Hx hepatitis B 2006-04-11 Completed [facility] vaccine<sup>4</sup> 15:23:57 Mary nn hepatitis B vaccine 2006-04-11 Completed Mem[facility] ial #3 15:23:57 [place] hepatitis B vaccine 2006-04-11 Completed Mem[facility] ial #3 15:23:57 Jimmy varicella virus 2006-03-20 Completed [facility] vaccine<sup>7</sup> 15:23:57 Mary nn chicken pox 2006-03-20 Completed [facility] immunization #1 15:23:57 [place] chicken pox 2006-03-20 Completed [facility] immunization #1 15:23:57 [place] zoster vaccine 2006-03-20 Completed [facility] live<sup>8</sup> 06:00:00 [place] Hx hepatitis B 2006-03-15 Completed [facility] vaccine<sup>5</sup> 15:23:57 Mary nn hepatitis B vaccine 2006-03-15 Completed Mem[facility] ial #2 given 15:23:57 [place] hepatitis B vaccine 2006-03-15 Completed Mem[facility] ial #2 given 15:23:57 Jimmy measles/mumps/rubell 2006-02-28 Completed Andres rial a virus 15:23:57 [place] vaccine<sup>9</sup> MMR (measles, mumps, 2006-02-28 Completed Andres rial rubella) virus 15:23:57 [place] immunization #1 MMR (measles, mumps, 2006-02-28 Completed Andres rial rubella) virus 15:23:57 Jimmy immunization #1 Hx hepatitis B 2006-02-25 Completed [facility] vaccine<sup>6</sup> 15:23:57 Mary nn hepatitis B vaccine 2006-02-25 Completed Memor ial [...] kg Heart rate 2021-05-15 14:59:00 72 /min [facility] Body height 2021-05-15 14:59:00 172.7 cm [facility] Systolic blood 2021-05-15 14:59:00 138 mm[Hg] [facility] of pressure Medicine Diastolic blood 2021-05-15 14:59:00 74 mm[Hg] [facility] of pressure Medicine Systolic blood 2019-11-19 15:57:00 146 mm[Hg] [facility] of pressure Medicine Diastolic blood 2019-11-19 15:57:00 72 mm[Hg] [facility] of pressure Medicine Heart rate 2019-11-19 15:57:00 91 /min [facility] Body height 2019-11-19 15:57:00 172.7 cm [facility] Body weight 2019-11-19 15:57:00 83.462 kg [facility] BMI 2019-11-19 15:57:00 27.98 kg/m2 [facility] Systolic blood 2019-11-19 15:57:00 146 mm[Hg] [facility] of pressure Medicine Diastolic blood 2019-11-19 15:57:00 72 mm[Hg] [facility] of pressure Medicine Heart rate 2019-11-19 15:57:00 91 /min [facility] Body height 2019-11-19 15:57:00 172.7 cm [facility] Body weight 2019-11-19 15:57:00 83.462 kg [facility] BMI 2019-11-19 15:57:00 27.98 kg/m2 [facility] Systolic blood 2019-11-12 01:28:00 126 mm[Hg] [facility] Diastolic blood 2019-11-12 01:28:00 63 mm[Hg] [facility] pressure [facility] Heart rate 2019-11-12 01:28:00 84 /min [facility] Respiratory rate 2019-11-12 01:28:00 20 /min [facility] Oxygen saturation in 2019-11-12 01:28:00 100 /min [facility] of Arterial blood by [facility] raman Pulse oximetry Branch Systolic blood 2019-11-12 01:00:00 142 mm[Hg] [facility] Diastolic blood 2019-11-12 01:00:00 71 mm[Hg] [facility] pressure [facility] Heart rate 2019-11-12 01:00:00 84 /min [facility] Respiratory rate 2019-11-12 01:00:00 14 /min [facility] Oxygen saturation in 2019-11-12 01:00:00 99 /min [facility] Arterial blood by [facility] Pulse oximetry Branch Body temperature 2019-11-11 22:21:00 36.61 Pat [facility] Body weight 2019-11-11 22:21:00 85 kg [facility] Systolic blood 2019-11-12 01:28:00 126 mm[Hg] [facility] Diastolic blood 2019-11-12 01:28:00 63 mm[Hg] [facility] pressure [facility] Heart rate 2019-11-12 01:28:00 84 /min [facility] Respiratory rate 2019-11-12 01:28:00 20 /min [facility] Oxygen saturation in 2019-11-12 01:28:00 100 /min [facility] Arterial blood by [facility] raman Pulse oximetry Branch Systolic blood 2019-11-12 01:00:00 142 mm[Hg] [facility] Diastolic blood 2019-11-12 01:00:00 71 mm[Hg] [facility] pressure [facility] Heart rate 2019-11-12 01:00:00 84 /min [facility] Respiratory rate 2019-11-12 01:00:00 14 /min [facility] Oxygen saturation in 2019-11-12 01:00:00 99 /min University Arterial blood by [facility] Pulse oximetry Branch Body temperature 2019-11-11 22:21:00 36.61 Pat [facility] Body weight 2019-11-11 22:21:00 85 kg Universi [facility] Heart Rate 2021-12-23 14:30:35 [facility] [place] Temperature Oral (F) 2021-12-23 14:30:28 96.8 F [facility] [place] Systolic (mm Hg) 2021-12-23 14:30:01 Andres rial Jimmy Diastolic (mm Hg) 2021-12-23 14:30:01 Mem orial [place] Temperature Oral (F) 2021-12-17 17:00:00 96.9 F [facility] [place] Height 2021-12-16 10:50:00 5 [ft_i] [facility] [place] Weight 2021-12-16 10:50:00 [facility] Jimmy BMI Calculated 2021-12-16 10:50:00 Memori al Jimmy Systolic blood 2021-12-12 07:00:00 134 mm[Hg] [facility] Diastolic blood 2021-12-12 07:00:00 53 mm[Hg] [facility] Heart rate 2021-12-12 07:00:00 50 /min [facility] Body temperature 2021-12-12 07:00:00 36.67 Pat [facility] Respiratory rate 2021-12-12 07:00:00 18 /min [facility] Oxygen saturation in 2021-12-12 07:00:00 93 /min [facility] Arterial blood by Medical Ce nter Pulse oximetry Body weight 2021-12-11 21:00:00 91 kg [facility] BMI 2021-12-11 21:00:00 30.50 kg/m2 [facility] Body height 2021-12-09 17:00:00 172.7 cm [facility] Systolic blood 2021-06-15 17:41:09 176 mm[Hg] [facility] Diastolic blood 2021-06-15 17:41:09 70 mm[facility]Hg[facility] pressure Heart rate 2021-06-15 17:41:09 70 /min [facility] Body temperature 2021-06-15 17:41:09 36.89 Pat [facility] Respiratory rate 2021-06-15 17:41:09 18 /min [facility] Oxygen saturation in 2021-06-15 17:41:09 97 /min [facility] Arterial blood by Pulse oximetry Body height 2021-06-12 21:25:00 172.7 cm [facility] Body weight 2021-06-12 21:25:00 86.183 kg [facility] BMI 2021-06-12 21:25:00 28.89 kg/m2 [facility] Body height 2020-04-27 20:44:00 172.7 cm [facility] Body weight 2020-04-27 20:44:00 84.369 kg [facility] BMI 2020-04-27 20:44:00 28.28 kg/m2 [facility] Systolic blood 2020-03-26 14:44:51 139 mm[Hg] [facility] pressure Diastolic blood 2020-03-26 14:44:51 66 mm[Hg] [facility] Hospital pressure Heart rate 2020-03-26 14:44:51 80 /min [facility] Body temperature 2020-03-26 14:44:51 36 Pat [facility] Respiratory rate 2020-03-26 14:44:51 19 /min [facility] Oxygen saturation in 2020-03-26 14:44:51 96 /min [facility] Arterial blood by Pulse oximetry Height 2014-02-18 15:55:42 [facility] [place] Weight 2014-02-18 15:55:42 [facility] Jimmy Temperature Oral (F) 2014-02-18 15:55:42 97.5 F [facility] Heart Rate 2014-02-18 15:55:42 [facility] [place] Systolic (mm Hg) 2014-02-18 15:55:42 Andres rial Jimmy Diastolic (mm Hg) 2014-02-18 15:55:42 Mem orial Jimmy Weight 2013-01-23 19:53:21 [facility] Temperature Oral (F) 2013-01-23 19:53:21 97.6 F Lino Marquez Heart Rate 2013-01-23 19:53:21 Lino Jimmy Height 2013-01-23 19:53:21 Lino Whitlockann Systolic (mm Hg) 2013-01-23 19:53:21 Andres Marquez Diastolic (mm Hg) 2013-01-23 19:53:21 Mem orial Jimmy Procedures Procedure Date / Time Performing Source Performed Clinician Esophagogastroduodenoscopy 2021-12-18 Shayy Marquez , flexible, transoral; 14:07:00 diagnostic, including collection of specimen(s) by brushing or washing, when performed (separate procedure) CBC W/PLT COUNT & AUTO 2021-12-12 Donell Neeru Aleks [facility] DIFFERENTIAL 04:59:00 [place] BASIC METABOLIC PANEL 2021-12-12 Donell Neeru Aleks [facility] 04:59:00 [place] CBC W/PLT COUNT & AUTO 2021-12-12 Donell Neeru Aleks [facility] DIFFERENTIAL 04:59:00 [place] HEMODIALYSIS INPATIENT 2021-12-11 Barak Pérez [facility] Medical 21:00:00 [place] ECG 12-LEAD 2021-12-11 Unknown, Hl7 Doctor [facility] Medical 15:07:30 [place] ECG 12-LEAD 2021-12-11 Susan Pfeiffer Tremayne [facility] Med ical 15:07:30 [place] ECG 12-LEAD 2021-12-11 Unknown, Hl7 Doctor [facility] Medical 15:07:[address] [place] [address] ABDOMEN/PELVIS WITHOUT 2021-12-11 Donell Neeru Aleks [facility] IV CONTRAST 14:20:00 [place] BASIC METABOLIC PANEL 2021-12-11 Donell Neeru Aleks [facility] 05:12:00 [place] HEPATITIS B SURFACE 2021-12-11 Barak Pérez [facility] Medical ANTIGEN 05:12:00 [place] CBC W/PLT COUNT & AUTO 2021-12-11 Donell Neeru Aleks [facility] DIFFERENTIAL 05:12:00 [place] CBC W/PLT COUNT & AUTO 2021-12-11 Donell Neeru Aleks [facility] DIFFERENTIAL 05:12:00 [place] C-REACTIVE PROTEIN 2021-12-10 Esmer Figueroa [facility] 11:32:00 [facility] PHOSPHORUS 2021-12-10 Barak Pérez [facility] 11:32:00 [place] SARS-COV2/RT-PCR [facility] 2021-12-10 [facility], [facility] REF LABS) 10:07:00 [place] CBC W/PLT COUNT & AUTO 2021-12-10 [facility], [facility] DIFFERENTIAL 04:26:00 [place] BASIC METABOLIC PANEL 2021-12-10 [facility], [facility] 04:26:00 [place] CBC W/PLT COUNT & AUTO 2021-12-10 [facility] DIFFERENTIAL 04:26:00 [place] HEMOGLOBIN AND HEMATOCRIT 2021-12-09 [facility] 18:47:00 Center TYPE AND SCREEN, AUTOMATED 2021-12-09 [facility] 18:47:00 [place] XR CHEST 2 VW 2021-09-15 Requisition, Paper [facility] 16:09:00 Medical Branch ASSIGNMENT OF BENEFITS 2021-09-15 Doctor Unassigned, [facility] 15:42:19 [facility] HEMOGLOBIN & HEMATOCRIT 2021-06-15 Maddy Guo [facility] 14:45:00 HEMODIALYSIS 2021-06-15 Jenny Enriquez [facility] 12:31:53 [facility] COMPLETE BLD COUNT 2021-06-15 [facility] W/AUTO DIFF 09:14:00 BASIC METABOLIC PANEL 2021-06-15 [facility] 09:14:00 ESTIMATED GFR 2021-06-15 [facility] Hospit al 09:14:00 ECG 12-LEAD 2021-06-14 [facility] 18:49[facility]23 [facility] HC COMPLETE BLD COUNT 2021-06-13 Francesca Mac [facility] W/AUTO DIFF 23:02:00 COVID-19 QUALITATIVE 2021-06-13 [facility] RT-PCR 13:31:00 HEPATITIS B SURFACE 2021-06-13 Antony Ross [facility] ANTIGEN 12:37:00 HC COMPLETE BLD COUNT 2021-06-13 [facility] W/AUTO DIFF 09:33:00 [place] BASIC METABOLIC PANEL 2021-06-13 [place], [facility] 09:33:00 [facility] MAGNESIUM LEVEL 2021[facility]06[facility]13 [facility]00 [place] PARTIAL THROMBOPLASTIN 2021-06-13 [facility] TIME (PTT) 09:33:00 [place] TROPONIN T 2021-06-13 [place] 09:[facility]00 [place] ESTIMATED GFR 2021-06-13 [facility] al 09:33:00 [place] TOTAL IRON BINDING 2021-06-13 [facility] Hos pital CAPACITY 09:33:00 [place] FERRITIN LEVEL 2021-06-13 [facility] ABDOMEN PELVIS WO 2021-06-13 [place], [facility] CONTRAST 05:03:23 ECG ED PRELIMINARY 2021-06-13 [facility] pital INTERPRETATION 02:34:56 Arturo R. HEMODIALYSIS 2021-06-13 Antony Ross [facility] pital 02:16:04 HC COMPLETE BLD COUNT 2021-06-12 [facility] W/AUTO DIFF 22:50:00 Arturo R. PROTHROMBIN TIME WITH INR 2021-06-12 [facility] 22:50:00 Arturo R. TYPE AND SCREEN 2021-06-12 [facility] 22:50:00 Arturo R. COMPREHENSIVE METABOLIC 2021-06-12 [facility] PANEL 22:50:00 Arturo R. LIPASE LEVEL 2021-06-12 [facility] 22:50:00 Arturo R. ESTIMATED GFR 2021-06-12 [facility] 22:50:00 Arturo R. ECG 12-LEAD 2021-06-12 [facility] 21:49:24 Arturo Gupta ELECTROCARDIOGRAM COMPLETE 2021-05-15 [facility] of 13:13:49 Medicine (SCN) NUCLEAR MED SCAN 2021-05-15 [facility] Co llege of 09:49:10 Medicine (SCN) SCANNED ORDER 2021-05-15 [facility] Colle ge of 09:49:10 Medicine [id number] 2020-05-24 GRANI [facility] 00:00:00 [facility] [id number] 2020-05-20 GIBJE.01 [facility] 00:00:00 [facility] [id number] 2020-05-20 GIBJE.01 [facility] 00:00:00 [facility] [id number] 2020-05-20 GIBJE.01 [facility] 00:00:00 [facility] [id number] 2020-05-20 SEEGE [facility] 00:00:00 [facility] [id number] 2020-05-16 JUSTINO.03 [facility] 00:00:00 [facility] [id number] 2020-05-14 JUSTINO.03 [facility] 00:00:00 [facility] [id number] 2020-05-11 [facility] 00:00:00 [facility] [id number] 2020-05-11 [facility] 00:00:00 [facility] [id number] 2020-05-11 [facility] 00:00:00 [facility] [id number] 2020-05-11 [facility] 00:00:00 [facility] [id number] 2020-03-30 [facility] 00:00:00 [facility] [id number] 2020-03-30 [facility] 00:00:00 [facility] [id number] 2020-03-30 [facility] 00:00:00 [facility] [id number] 2020-03-30 [facility] 00:00:00 [facility] [id number] 2020-03-30 [facility] 00:00:00 [facility] [id number] 2020-03-30 [facility] 00:00:00 [facility] [id number] 2020-03-30 [facility] 00:00:00 [facility] [id number] 2020-03-30 [facility] 00:00:00 [facility] [id number] 2020-03-30 [facility] 00:00:00 [facility] [id number] 2020-03-30 [facility] 00:00:00 [facility] [id number] 2020-03-30 [facility] 00:00:00 [facility] [id number] 2020-03-30 [facility] 00:00:00 [facility] [id number] 2020-03-30 [facility] 00:00:00 [facility] [id number] 2020-03-30 [facility] 00:00:00 [facility] [id number] 2020-03-30 [facility] 00:00:00 [facility] [id number] 2020-03-30 [facility] 00:00:00 Rehabilitation C [facility]press [id number] 2020-03-30 [facility] 00:00:00 Rehabilitation C ypress [id number] 2020-03-30 [facility] 00:00:00 Rehabilitation C jeannieress [id number] 2020-03-30 [facility] 00:00:00 Rehabilitation C jaycob [id number] 2020-03-30 [facility] 00:00:00 Rehabilitation C jaycob [id number] 2020-03-30 [facility] 00:00:00 Rehabilitation C jeannieress [id number] 2020-03-30 [facility] 00:00:00 Rehabilitation C jaycob HC COMPLETE BLD COUNT 2020-03-25 [facility] W/AUTO DIFF 10:45:00 Obi BASIC METABOLIC PANEL 2020-03-25 [facility] 10:00:00 Obi ESTIMATED GFR 2020-03-25 [facility] Hospit al 10:00:00 Obi HEMODIALYSIS 2020-03-24 Maldonado Casper [facility] 22:39:54 Deepak HC COMPLETE BLD COUNT 2020-03-24 [facility] W/AUTO DIFF 11:00:00 Obi BASIC METABOLIC PANEL 2020-03-24 [facility] 10:00:00 Obi ESTIMATED GFR 2020-03-24 [facility] 10:00:00 Obi US CAROTID DUPLEX 2020-03-23 Bear Mariee [facility] BILATERAL 18:31:05 BASIC METABOLIC PANEL 2020-03-23 [facility] 09:20:00 Obi HC COMPLETE BLD COUNT 2020-03-23 [facility] W/AUTO DIFF 09:20:00 Obi ESTIMATED GFR 2020-03-23 [facility] Hospit al 09:20:00 Obi POC GLUCOSE 2020-03-22 [facility] Hospit al 22:27:00 Obi HEMODIALYSIS 2020-03-22 [facility] 22:13:20 Tabitha ANAEROBIC CULTURE 2020-03-22 [place], Obi [facility] Hosp ital 20:52:00 FUNGUS CULTURE 2020-03-22 Usha, Obipopeye Alman[facility] 20:52:00 AFB STAIN 2020-03-22 Usha, Obi [facility] Hospit al 20:52:00 AEROBIC CULTURE 2020-03-22 [place], Obi [facility] Hospit al 20:52:00 FUNGUS SMEAR 2020-03-22 [place], Obipopeye [facility] 20:52:00 ANAEROBIC CULTURE 2020-03-22 [place], Obi [facility] Hosp ital 20:50:00 FUNGUS CULTURE 2020-03-22 [place], Obi [facility] Hospit al 20:50:00 AFB STAIN 2020-03-22 [place], Obi [facility] Hospit al 20:50:00 AEROBIC CULTURE 2020-03-22 [place], [facility] 20:50:00 GRAM STAIN 2020-03-22 [place], [facility] 20:50:00 SURGICAL PATHOLOGY REQUEST 2020-03-22 [facility] 20:30:00 Obi AFB CULTURE 2020-03-22 [place], [facility] Hospit al 19:52:00 AFB CULTURE 2020-03-22 [place], Obi [facility] Hospit al 19:50:00 OR FL < 1 HOUR 2020-03-22 [place], [facility] 19:30:00 [place] AN ELECTIVE 2020-03-22 [facility] Simpson [facility] se[facility] ENDOTRACHEAL AIRWAY 19:25:28 AMPUTATION, ABOVE KNEE 2020-03-22 [facility] 18:47:00 POC GLUCOSE 2020-03-22 [facility] 15:07[facility]00 Obi HC COMPLETE BLD COUNT 2020-03-22 [facility] W/AUTO DIFF 12:45:00 TYPE AND SCREEN 2020-03-22 [facility] VANCOMYCIN LEVEL, RANDOM 2020-03-22 [facility] 10:00:00 Yasser BASIC METABOLIC PANEL 2020-03-22 [facility] 10:00:00 Obi ESTIMATED GFR 2020-03-22 [facility] 10:[facility]00 Obi LIPID PANEL 2020-03-22 Bear Mariee [facility] 10:00:00 HEPATITIS B SURFACE 2020-03-21 [facility] ANTIGEN 14:22:00 PROTHROMBIN TIME WITH INR 2020-03-21 [facility] 12:15:00 PARTIAL THROMBOPLASTIN 2020-03-21 [facility] TIME (PTT) 12:15:00 BASIC METABOLIC PANEL 2020-03-21 [facility] 12:15:00 CBC WITH PLATELET AND 2020-03-21 [facility] DIFFERENTIAL 12:15:00 VANCOMYCIN LEVEL, RANDOM 2020-03-21 [facility] 12:15:00 Yasser ESTIMATED GFR 2020-03-21 [facility] 12:15:00 Yasser HEMODIALYSIS 2020-03-21 [facility]an 06:05:17 VANCOMYCIN LEVEL, RANDOM 2020-03-20 [facility] 20:54:00 Yasser BASIC METABOLIC PANEL 2020-03-20 [facility] 11:30:00 Obi ESTIMATED GFR 2020-03-20 [facility] 11:30:00 Obi TTE COMPLETE, W CONTRAST, 2020-03-19 Svetlana Martinez [facility] W DOPPLER ([id number]) 18:00:00 Vidor HC COMPLETE BLD COUNT 2020-03-19 [facility] W/AUTO DIFF 10:14:00 MRI KNEE WO CONTRAST RIGHT 2020-03-19 [facility] 09:38:00 Ryan MRI THIGH WO CONTRAST 2020-03-19 [facility] RIGHT 08:52:00 Vidor MRI LOWER EXTREMITY WO 2020-03-19 [facility] CONTRAST RIGHT 08:07:00 Ryan BASIC METABOLIC PANEL 2020-03-19 [facility] 07:01:00 ESTIMATED GFR 2020-03-[address] [facility] Hospit al 07:01:00 LACTIC ACID LEVEL 2020-03-[address] [facility] Hosp ital 07:01:00 LACTIC ACID LEVEL, SEPSIS 2020-03-19 [facility] - NOW AND REPEAT 2X EVERY 01:46:00 Ololade 3 HOURS BLOOD CULTURE, AEROBIC & 2020-03-18 [facility] ANAEROBIC 23:22:00 Ololade COVID-19 QUALITATIVE 2020-03-18 [facility] ospital RT-PCR 23:22:00 Ol[place]ade BLOOD CULTURE, AEROBIC & 2020-03-18 [facility] ANAEROBIC 23:16:00 Ololade HC COMPLETE BLD COUNT 2020-03-18 [facility] W/AUTO DIFF 23:16:00 Ololade PROTHROMBIN TIME WITH INR 2020-03-18 [facility] 23:16:00 Ol[place] PARTIAL THROMBOPLASTIN 2020-03-18 [facility] TIME (PTT) 23:16:00 Ol[place] TYPE AND SCREEN 2020-03-18 [facility] Hospit al 23:16:00 Ololade COMPREHENSIVE METABOLIC 2020-03-18 [facility] Hospital PANEL 23:16:00 Ol[place] LACTIC ACID LEVEL, SEPSIS 2020-03-18 [facility] - NOW AND REPEAT 2X EVERY 23:16:00 Ololade 3 HOURS C-REACTIVE PROTEIN 2020-03-18 [facility]ital 23:16:00 Ol[place] SEDIMENTATION RATE 2020-03-18 [facility] 23:16:00 [place] ESTIMATED GFR 2020-03-18 [facility] Hospit al 23:16:00 Ol[place] URINE CULTURE 2020-03-18 [facility] Hospit al 23:10:00 [place] URINALYSIS SCREEN AND 2020-03-18 [facility] MICROSCOPY, WITH REFLEX TO 23:10:00 Ol[place] CULTURE XR KNEE 1 OR 2 VW RIGHT 2020-03-18 [facility] 23:03:39 [place] XR TIBIA FIBULA 2 VW RIGHT 2020-03-18 [facility] 23:03:04 [place] URINALYSIS 2019-11-11 [facility] 23:48:00 Medical Branch XR CHEST 1 VW 2019-11-11 [facility] 23:02:37 Medical Branch MAGNESIUM 2019-11-11 [facility] 22:[facility] COMP. METABOLIC PANEL 2019-11-11 Nelia [facility] ([id number]) 22:43:00 Medical Branch CBC WITH DIFF 2019-11-11 [facility] 22:43:00 Medical Branch TROPONIN I 2019-11-11 [facility] 22:43:00 Medical Branch EKG-12 LEAD 2019-11-11 [facility] 22:40:13 Medical Branch Colonoscopy 2013-02-[address] [facility] [place] 06:00:00 Placement of stent 2010-01-13 [facility] jennie 06:00:00 Procedure on [facility] knee<sup>5</sup> Complete resection of [facility] colon<sup>2</sup> Procedure on [facility] hand<sup>3</sup> Bilateral replacement of Memoria l Jimmy knee joints<sup>1</sup> Manual repair of hernia [facility] Procedure on [facility] kidney<sup>4</sup> Plan of Care Planned Activity Planned Date Details Comments Source Future Scheduled 2022-01-22 65+ [facility]OCOCC[facility] Test 16:36:00 VACCINE (1 - PCV) [code Hosp ital = 65+ PNEUMOCOCCAL VACCINE (1 - PCV)] Future Scheduled 2022-01-22 SHINGLES VACCINES (1 of Religious Test 16:36:00 2) [code = SHINGLES Hospital VACCINES (1 of 2)] Future Scheduled 2022-01-22 COLONOSCOPY SCREENING [facility] 16:36:00 [code = COLONOSCOPY Hospital SCREENING] Future Scheduled 2022-01-22 COVID-19 VACCINE (3 - [facility] Test 16:36:00 Booster for Pfizer Hospital series) [code = COVID-19 VACCINE (3 - Booster for Pfizer series)] Future Scheduled 2022-01-22 INFLUENZA VACCINE [code Religious Test 16:36:00 = INFLUENZA VACCINE] Hospita l Future Scheduled 2021-12-15 HEPATITIS B VACCINES (1 Religious Test 11:14:19 of 3 - 3-dose series) Hospit al [code = HEPATITIS B VACCINES (1 of 3 - 3-dose series)] Future Scheduled 2021-12-15 65+ PNEUMOCOCCAL [facility] Test 11:14:19 VACCINE (1 - PCV) [code Hosp ital = 65+ PNEUMOCOCCAL VACCINE (1 - PCV)] Future Scheduled 2021-12-15 SHINGLES VACCINES (1 of Religious Test 11:14:19 2) [code = SHINGLES Hospital VACCINES (1 of 2)] Future Scheduled 2021-12-15 COLONOSCOPY SCREENING [facility] 11:14:19 [code = COLONOSCOPY Hospital SCREENING] Future Scheduled 2021-12-15 COVID-19 VACCINE (3 - [facility] Test 11:14:19 Booster for Pfizer Hospital series) [code = COVID-19 VACCINE (3 - Booster for Pfizer series)] Future Scheduled 2021-12-15 INFLUENZA VACCINE [code Religious Test 11:14:19 = INFLUENZA VACCINE] Hospita l Future Scheduled 2021-12-15 HEPATITIS B VACCINES (1 Religious Test 11:14:19 of 3 - 3-dose series) Hospit al [code = HEPATITIS B VACCINES (1 of 3 - 3-dose series)] Future Scheduled 2021-12-15 65+ [facility]NEUMOCOCCAL [facility]i [facility] Test 11:14:19 VACCINE (1 - PCV) [code Hosp ital = 65+ PNEUMOCOCCAL VACCINE (1 - PCV)] Future Scheduled 2021-12-15 SHINGLES VACCINES (1 of Religious Test 11:14:19 2) [code = SHINGLES Hospital VACCINES (1 of 2)] Future Scheduled 2021-12-15 COLONOSCOPY SCREENING [facility] 11:14:19 [code = COLONOSCOPY Hospital SCREENING] Future Scheduled 2021-12-15 COVID-19 VACCINE (3 - [facility] Test 11:14:19 Booster for Pfizer Hospital series) [code = COVID-19 VACCINE (3 - Booster for Pfizer series)] Future Scheduled 2021-12-15 INFLUENZA VACCINE [code Religious Test 11:14:19 = INFLUENZA VACCINE] Hospita l Future Scheduled 2021-12-15 HEPATITIS B VACCINES (1 Religious Test 11:14:19 of 3 - 3-dose series) Hospit al [code = HEPATITIS B VACCINES (1 of 3 - 3-dose series)] Future Scheduled 2021-12-15 65+ PNEUMOCOCCAL Methodi [facility] Test 11:14:19 VACCINE (1 - PCV) [code Hosp ital = 65+ PNEUMOCOCCAL VACCINE (1 - PCV)] Future Scheduled 2021-12-15 SHINGLES VACCINES (1 of Religious Test 11:14:19 2) [code = SHINGLES Hospital VACCINES (1 of 2)] Future Scheduled 2021-12-15 COLONOSCOPY SCREENING [facility] 11:14:19 [code = COLONOSCOPY Hospital SCREENING] Future Scheduled 2021-12-15 COVID-19 VACCINE (3 - [facility] Test 11:14:19 Booster for Pfizer Hospital series) [code = COVID-19 VACCINE (3 - Booster for Pfizer series)] Future Scheduled 2021-12-15 INFLUENZA VACCINE [code Religious Test 11:14:19 = INFLUENZA VACCINE] Hospita l Future Scheduled 2021-10-27 HEPATITIS B VACCINES (1 Religious Test 04:11:20 of 3 - 3-dose series) Hospit al [code = HEPATITIS B VACCINES (1 of 3 - 3-dose series)] Future Scheduled 2021-10-27 65+ PNEUMOCOCCAL [facility]i [facility] Test 04:11:20 VACCINE (1 - PCV) [code Hosp ital = 65+ PNEUMOCOCCAL VACCINE (1 - PCV)] Future Scheduled 2021-10-27 SHINGLES VACCINES (1 of Religious Test 04:11:20 2) [code = SHINGLES Hospital VACCINES (1 of 2)] Future Scheduled 2021-10-27 COLONOSCOPY SCREENING [facility] 04:11:20 [code = COLONOSCOPY Hospital SCREENING] Future Scheduled 2021-10-27 COVID-19 VACCINE (3 - [facility] Test 04:11:20 Booster for Pfizer Hospital series) [code = COVID-19 VACCINE (3 - Booster for Pfizer series)] Future Scheduled 2021-10-27 INFLUENZA VACCINE [code Religious Test 04:11:20 = INFLUENZA VACCINE] Hospita l Future Scheduled 2021-10-12 INFLUENZA VACCINE (#1[facility] 00:[facility]00 [code = INFLUENZA Medical Ce nter VACCINE (#1)] Future Scheduled 2021-10-12 INFLUENZA VACCINE (#1) [facility] 00:00:00 [code = INFLUENZA Medical Ce nter VACCINE (#1)] Future Scheduled 2021-10-12 INFLUENZA VACCINE (#1) [facility] Test 00:00:00 [code = INFLUENZA Medical Ce nter VACCINE (#1)] Future Scheduled 2021-10-12 INFLUENZA VACCINE (#1) [facility] Test 00:00:00 [code = INFLUENZA Medical Ce nter VACCINE (#1)] Future Scheduled 2021-10-12 INFLUENZA VACCINE (#1) [facility] Test 00:00:00 [code = INFLUENZA Medical Ce nter VACCINE (#1)] Future Scheduled 2021-05-15 Screening for malignant [facility] Test 12:13:46 neoplasm of colon of Medicin e (procedure) [code = 759072223] Future Scheduled 2021-05-15 COVID-19 Vaccine (1) [facility] Test 12:13:46 [code = COVID-19 of Medicine Vaccine (1)] Future Scheduled 2021-05-15 TETANUS SHOT (ADULT) [facility] Test 12:13:46 [code = TETANUS SHOT of Medi cine (ADULT)] Future Scheduled 2021-05-15 BMI FOLLOW UP PLAN [facility] Test 12:13:46 [code = BMI FOLLOW UP of Med icine PLAN] Future Scheduled 2021-05-15 Hepatitis C screening [facility] Test 12:13:46 (procedure) [code = of Medic ine [id number]] Future Scheduled 2021-05-15 ZOSTER VACCINE (1 of [...] M edicine MONTHS] Future Scheduled 2021-05-15 ELECTROCARDIOGRAM [facility] Test 10:00:47 COMPLETE [code = 25863] of M edicine Diagnostic Test 2021-05-15 MYOCARD PERFUSION - Expected: [employer] Pending 00:00:00 LEXISCAN [code = 87111] 05/15/2021, of M edicine Expires: 11/14/2022 Diagnostic Test 2021-05-15 ECHO, COMPLETE [code = Expected: Chaim anaya [place] Pending 00:00:00 [id number]] 05/15/2021, of Medicine Expires: 11/14/2021 Future Scheduled 2021-02-11 FALLS RISK SCREENING [facility] Test 00:00:00 [code = FALLS RISK Medical C enter SCREENING] Future Scheduled 2021-02-11 FALLS RISK SCREENING [facility] Test 00:00:00 [code = FALLS RISK Medical C enter SCREENING] Future Scheduled 2021-02-11 FALLS RISK SCREENING [facility] Test 00:00:00 [code = FALLS RISK Medical C enter SCREENING] Future Scheduled 2021-02-11 FALLS RISK SCREENING [facility] Test 00:00:00 [code = FALLS RISK Medical C enter SCREENING] Future Scheduled 2021-02-11 FALLS RISK SCREENING [facility] Test 00:00:00 [code = FALLS RISK Medical C enter SCREENING] Future Scheduled 2011-10-[address] [facility] [facility] Test 00:00:00 WELLNESS (YEAR 2 or Medical Center FIRST YEAR if no IPPE) [code = MEDICARE ANNUAL WELLNESS (YEAR 2 or FIRST YEAR if no IPPE)] Future Scheduled 2011-10-[address] [facility] Test 00:00:00 WELLNESS (YEAR 2 or Medical Center FIRST YEAR if no IPPE) [code = MEDICARE ANNUAL WELLNESS (YEAR 2 or FIRST YEAR if no IPPE)] Future Scheduled 2011-10-[address] [facility] Test 00:00:00 WELLNESS (YEAR 2 or Medical Center FIRST YEAR if no IPPE) [code = MEDICARE ANNUAL WELLNESS (YEAR 2 or FIRST YEAR if no IPPE)] Future Scheduled 2011-10-[address] [facility] Test 00:00:00 WELLNESS (YEAR 2 or Medical Center FIRST YEAR if no IPPE) [code = MEDICARE ANNUAL WELLNESS (YEAR 2 or FIRST YEAR if no IPPE)] Future Scheduled 2011-10-[address] [facility] Test 00:00:00 WELLNESS (YEAR 2 or Medical Center FIRST YEAR if no IPPE) [code = MEDICARE ANNUAL WELLNESS (YEAR 2 or FIRST YEAR if no IPPE)] Future Scheduled 1995-11-10 SHINGLES VACCINES ([address] [facility] Test 00:00:00 2) [code = SHINGLES Medical Center VACCINES (1 of 2)] Future Scheduled 1995-11-10 SHINGLES VACCINES ([address] [facility] Test 00:00:00 2) [code = SHINGLES Medical Center VACCINES (1 of 2)] Future Scheduled 1995-11-10 SHINGLES VACCINES ([address] [facility] Test 00:00:00 2) [code = SHINGLES Medical Center VACCINES (1 of 2)] Future Scheduled 1995-11-10 SHINGLES VACCINES ([address] [facility] Test 00:00:00 2) [code = SHINGLES Medical Center VACCINES (1 of 2)] Future Scheduled 1995-11-10 SHINGLES VACCINES ([address] [facility] Test 00:00:00 2) [code = SHINGLES Medical Center VACCINES (1 of 2)] Future Scheduled 1964 DTAP/TDAP/TD [facility]INES [facility] Test 00:00:00 (1 - Tdap) [code = Medical C enter DTAP/TDAP/TD VACCINES (1 - Tdap)] Future Scheduled 1964 DTAP/TDAP/TD [facility]ACCINES [facility] 00:00:00 (1 - Tdap) [code = Medical C enter DTAP/TDAP/TD VACCINES (1 - Tdap)] Future Scheduled 1964 DTAP/TDAP/TD [facility]ACCINES [facility] 00:00:00 (1 - Tdap) [code = Medical C enter DTAP/TDAP/TD VACCINES (1 - Tdap)] Future Scheduled 1964 DTAP/TDAP/TD [facility]ACCINES [facility] 00:00:00 (1 - Tdap) [code = Medical C enter DTAP/TDAP/TD VACCINES (1 - Tdap)] Future Scheduled 1964 DTAP/TDAP/TD [facility]ACCINES [facility] Test 00:00:00 (1 - Tdap) [code = Medical C enter DTAP/TDAP/TD VACCINES (1 - Tdap)] Future Scheduled 1963-11-10 HEPATITIS C [facility]CRE[facility]ING [facility] 00:00:00 [code = HEPATITIS C Medical Center SCREENING] Future Scheduled 1963-11-10 HEPATITIS C [facility] Test 00:00:00 [code = HEPATITIS C Medical Center SCREENING] Future Scheduled 1963-11-10 HEPATITIS C [facility] 00:00:00 [code = HEPATITIS C Medical Center SCREENING] Future Scheduled 1963-11-10 HEPATITIS C [facility]ING [facility] 00:00:00 [code = HEPATITIS C Medical Center SCREENING] Future Scheduled 1963-11-10 HEPATITIS C [facility] 00:00:00 [code = HEPATITIS C Medical Center SCREENING] Future Scheduled [address] [facility] Test 00:00:00 Counseling and Medical Cente r Screening (12+) [code = Tobacco Cessation Counseling and Screening (12+)] Future Scheduled [address] [facility] Test 00:00:00 Counseling and Medical Cente r Screening (12+) [code = Tobacco Cessation Counseling and Screening (12+)] Future Scheduled 1951-11-10 PNEUMOCOCCAL 65+ YRS ([address] [facility] Test 00:00:00 - PCV) [code = Medical Cente r PNEUMOCOCCAL 65+ YRS (1 - PCV)] Future Scheduled 1951-11-10 PNEUMOCOCCAL 65+ YRS ([address] [facility] Test 00:00:00 - PCV) [code = Medical Cente r PNEUMOCOCCAL 65+ YRS (1 - PCV)] Future Scheduled 1951-11-10 PNEUMOCOCCAL 65+ YRS ([address] [facility] Test 00:00:00 - PCV) [code = Medical Cente r PNEUMOCOCCAL 65+ YRS (1 - PCV)] Future Scheduled 1951-11-10 PNEUMOCOCCAL 65+ YRS ([address] [facility] Test 00:00:00 - PCV) [code = Medical Cente r PNEUMOCOCCAL 65+ YRS (1 - PCV)] Future Scheduled 1951-11-10 PNEUMOCOCCAL 65+ YRS ([address] [facility] Test 00:00:00 - PCV) [code = Medical Cente r PNEUMOCOCCAL 65+ YRS (1 - PCV)] Future Scheduled 1946-05-09 COVID-19 VACCINE (#1[facility] 00:00:00 [code = COVID-[address] VACCINE (#1)] Future Scheduled 1946-05-09 COVID-19 VACCINE (#1) [facility] 00:00:00 [code = COVID-[address] VACCINE (#1)] Future Scheduled 1946-05-09 COVID-19 VACCINE (#1) [facility] 00:00:00 [code = COVID-[address] VACCINE (#1)] Future Scheduled 1946-05-09 COVID-19 VACCINE (#1) [facility] 00:00:00 [code = COVID-[address] VACCINE (#1)] Future Scheduled 1946-05-09 COVID-19 VACCINE (#1) [facility] 00:00:00 [code = COVID-[address] VACCINE (#1)] Future Scheduled 65+ PNEUMOCOCCAL Methodi [facility] Test [...] VACCINES (#1)] Future Scheduled INFLUENZA VACCINE [code Religious Test = INFLUENZA VACCINE] Hospita l Future Scheduled ELECTROCARDIOGRAM [facility] Test COMPLETE [code = 34500] of M edicine Future Scheduled COLON CANCER SCREENING: [facility] Test COLONOSCOPY [code = of Medic ine COLON CANCER SCREENING: COLONOSCOPY] Future Scheduled TETANUS SHOT (ADULT) [employer] Test [code = TETANUS SHOT of Medi cine (ADULT)] Future Scheduled BMI FOLLOW UP PLAN [employer] Test [code = BMI FOLLOW UP of Med icine PLAN] Future Scheduled HEPATITIS C SCREENING [employer] Test [code = HEPATITIS C of Medic ine SCREENING] Future Scheduled ZOSTER VACCINE (1 of 2) [facility] Test [code = ZOSTER VACCINE of Me dicine (1 of 2)] Future Scheduled FALL SCREEN [code = [place] Test FALL SCREEN] of Medicine Future Scheduled PNEUMOVAX >=65 (PPSV23) [facility] Test [code = PNEUMOVAX >=65 of Me dicine (PPSV23)] Future Scheduled MEDICARE AWV (Initial) [employer] Test [code = MEDICARE AWV of Medi cine (Initial)] Future Scheduled FLU VACCINE > 6 MONTHS [employer] Test [code = FLU VACCINE > 6 of M edicine MONTHS] Future Scheduled EVENT MONITOR [code = 1 Occurrences [employer] Test 48054] starting of Medicine 11/19/2019 until 02/17/2020 Encounters Start End Encounter Admission Attending Care Care Encounter Source Date/Time Date/Time Type Type Clinicians Facility Department ID 2021-03-09 Outpatient 3 [id number] ENC[facility] BIT [facility] 11:54:24 [facility] [place] 2021-03-09 Outpatient 3 [id number] ENCPL REF [id number] [facility] 11:53:41 0[facility] [place] 2021-03-09 Outpatient 3 [id number] ENCPL REF [id number] [facility] 11:50:56 0329 [facility] [place] 2021-03-09 Outpatient 3 MICHELLE DIAZ AML [id number] [facility] 11:34:54 IGNAZIO 25171 [facility] [place] 2021-03-09 Outpatient 3 [id number] ENCPL REF [id number] [facility] 11:33:20 0212 [facility] [place] 2021-03-09 Outpatient 3 [id number] ENCPL REF [id number] [facility] 11:32:52 0211 [facility] [place] 2021-03-09 Outpatient 3 [id number] ENCPL REF [id number] [facility] 11:32:32 0210 [facility] d 2020 Inpatient Kirsten, HCACL HCACL [id number] [facility] 10:29:00 Sekou 19 [facility] 2020 Outpatient Provider, HCAPM HCAPM [id number] [facility] 10:29:00 [facility] Ziyad [facility] 2020 Inpatient Srinivas, HCACL HCACL [id number] [facility] 10:28:59 Fausto 61 [facility] 2020-06-07 Inpatient UR Kirsten, HCACL HCACL [id number] [facility] 18:10:16 Sekou 19 [facility] 2020-05-16 Inpatient HCACL HCACL [id number] [facility] 06:04:26 61 [facility] 2020-03-26 Inpatient 3 Keegan, ENCPL AML [id number] [facility] 12:00:00 Chaya 0213 [facility] [place] 2021-12-16 2021-12-23 Inpatient [facility] [id number] Memoria 10:37:00 19:27:00 Jimmy 09 l [facility] 2021-12-16 2021-12-23 Outpatient Solnimisha, [facility] [id number] 05:37:00 13:27:00 Vesta Azevedo 09 Mccracken 2021-12-16 2021-12-23 [facility] 2309 [facility] 05:37:00 13:27:00 VESTA 2021-12-09 2021-12-12 Inpatient [facility] [id number] [facility] 16:00:00 10:59:00 NEERU Med 2021-12-09 2021-12-12 [facility] [id number] 16:00:00 10:59:00 Encounter Neeru P[facility]ta [facility] 2021-12-09 2021-12-12 Hospital ER Donell [facility] [id number] 16:00:00 10:59:00 Encounter Neeruclaudia Peralta [facility] 2021-12-11 2021-12-11 Outpatient [facility] [id number] [facility] 00:00:00 23:59:00 Marion bravo of Medicin e 2021-12-11 2021-12-11 Orders [facility] [id number] 00:00:00 00:00:00 Only [facility] 2021-12-11 2021-12-11 Orders [facility] [id number] 00:00:00 00:00:00 Only [facility] 2021-12-09 2021-12-09 Travel [facility] [id number] [facility] 00:[facility]00 00:00:00 [facility] 2021-12-09 2021-12-09 [facility] [id number] 00:00:00 00:00:00 [facility] 2021-12-09 2021-12-09 Travel [facility] [id number] [facility] 00:[facility]00 00:00:00 [facility] 2021-12-09 2021-12-09 Telephone Donell [facility] [id number] 00:00:00 00:00:00 [facility] 2021-09-15 2021-09-15 Outpatient R RADIOLOGY [facility] [id number] Univers 10:45:54 23:59:00 ity of [facility] 2021-09-15 2021-09-15 Hospital Radiology [facility] [id number] Univers 10:45:00 23:59:00 Encounter ANGLEDANIEL [id number] ity of [place] 4.2.7.2.686 [facility] [id number] [place] [id number] Branch 2021-09-15 2021-09-15 Orders Doctor PENELOPE [id number] 00:00:00 00:00:00 Only Unassigned, ROSE MARY 350.1.13.10 ity of [place] [facility] 4.2.7.2.686 [place] as [id number] [place] [id number] Branch 2021-08-09 2021-08-09 Telemedici Brant, 1.2.840.1 [id number] Methodi 13:00:00 13:08:06 [facility] [id number] 3.430.2.7 Hospit a .3.089202 l .8 2021-08-09 2021-08-09 Telemedici Brant, 1.2.840.1 [id number] Methodi 13:00:00 13:08:06 ne [facility] [id number] 3.430.2.7 Hospit a .3.138951 l .8 2021-07-31 2021-08-01 Outpatient CHELSEA KENNY [facility] [id number] [facility] 16:42:10 08:16:24 SVETLANA bravo of Medicin e 2021-06-12 2021-06-15 [facility].1 [id number] Methodi 16:33:00 15:42:00 Encounter Svetlana Cano [id number] Aj, [place] 3.430.2.7 Ho spita .3.535036 l .8 2021-06-12 2021-06-15 [facility] 1.2.84 0.1 [id number] Methodi 16:33:00 15:42:00 Encounter Svetlana Cano [id number] Aj, [place] 3.430.2.7 Ho spita .3.354556 l .8 2021-05-25 2021-05-25 Outpatient [facility] [id number] [facility] 08:47:29 16:40:23 Marion e of Medicin e 2021-05-25 2021-05-25 Outpatient CHELSEA HILARIO [facility] [id number] [facility] 08:52:28 14:12:09 LOVE bravo of Medicin e 2021-05-15 2021-05-15 Office CHELSEA KENNY [id number] [facility] 09:49:10 10:49:30 Visit SVETLANA AMBULMCKENZIE 350.1.13.21 College Y 0.2.7.2.686 of [id number] Medi sky 300 e 2021-03-29 2021-03-29 Telephone Jaime, 1.2.840.7 [id number] Methodi 00:00:00 00:00:[address] 3.430.2.7 Hospit a .3.977670 l .8 2021-03-29 2021-03-29 Telephone Jaime, 1.2.840.7 [id number] Methodi 00:00:00 00:00:[address] 3.430.2.7 Hospit a .3.828930 l .8 2020-12-28 2020-12-29 Between nullFlavo [facility] [id number] [facility]oria 15:37:08 15:37:08 Visit r Primary 02 [facility] 2020-12-28 2020-12-29 Outpatient [facility] [id number] 09:37:08 09:37:08 02 2020-12-08 2020-12-09 Between nullFlavo [facility] [id number] [place] 16:48:14 16:48:14 Visit r Primary 01 [facility] 2020-12-08 2020-12-09 Outpatient [facility] [id number] 11:48:14 11:48:14 2020-12-07 2020-12-07 Outpatient [facility] [id number] [place] 00:00:00 00:00:00 MADDY [address] 2020-11-11 2020-11-13 Phone nullFlavo [facility] [id number] [place] 15:40:54 04:59:59 Message r Primary 00 [facility] 2020-11-11 2020-11-12 Outpatient MG [facility] [id number] 10:40:54 23:59:59 00 2020-10-01 2020-10-06 Inpatient BRANT [facility] 012 [id number] 25 [place] 00:00:00 00:00:00 SANDRA [facility] 2020-05-13 2020-05-13 Outpatient TORI HCAPM HCAPM [id number] [facility] 01:23:22 01:23:[address] [facility] 2020-04-27 2020-04-27 Telemedici Obi Kerr 1.2.840.1 [id number] Methodi 15:36:30 16:10:42 [address] 3.430.2.7 Hospit a .3.246762 l .8 2020-04-27 2020-04-27 Travel 1.2.840.1 1.2.795.949 8791 [id number] Methodi 00:00:00 00:00:[address] 3.430.2.7 0.2.7.3.698 Ho spita .3.205196 084.8 l .8 2020-04-26 2020-04-26 Travel 1.2.840.1 1.2.954.111 7314 [id number] Methodi 00:00:00 00:00:[address] 3.430.2.7 0.2.7.3.698 Ho spita .3.638266 084.8 l .8 2020-04-13 2020-04-18 Office Obi Kerr 1.2.840.1 [id number] 102 [id number] Methodi 11:45:02 00:23:05 Visit Archie 06978.1.[address] 3.430.2.7 Hospit a .3.255255 l .8 2020-04-13 2020-04-13 Travel 1.2.840.1 1.2.778.496 2035 [id number] Methodi 00:00:00 00:00:[address] 3.430.2.7 0.2.7.3.698 Ho spita .3.583957 084.8 l .8 2020-04-05 2020-04-05 Abstract Sugar, 1.2.840.1 [id number] [id number] Methodi 00:00:00 00:00:[address] 3.430.2.7 Hospit a .3.107662 l .8 2020-04-04 2020-04-04 [facility] [id number] Methodi 13:34:38 14:35:21 Visit Archie 75705.1.[address] 3.430.2.7 Hospit a .3.451472 l .8 2020-04-04 2020-04-04 Travel 1.2.840.1 1.2.889.311 1517 [id number] Methodi 00:00:00 00:00:[address] 3.430.2.7 0.2.7.3.698 Ho spita .3.790978 084.8 l .8 2020-04-01 2020-04-01 Orders Sugar, 1.2.840.1 [id number] 2099 [id number] Methodi 00:00:00 00:00:00 Only Emilee 91530.1.[address] 3.430.2.7 Hospit a .3.313258 l .8 2020-04-01 2020-04-01 Travel 1.2.840.1 1.2.476.446 0458 [id number] Methodi 00:00:00 00:00:[address] 3.430.2.7 0.2.7.3.698 Ho spita .3.600326 084.8 l .8 2020-03-18 2020-03-26 [facility] 1.2.840 .1 [id number] Methodi 15:51:00 11:35:00 Encounter Clint King 93320.1.[address] Dickson, Umar 3.430.2.7 Hos imelda .3.316962 l .8 2020-03-22 2020-03-22 Anesthesia Liu Mccloud 1.2.840.1 [id number] 84 [id number] Methodi 12:47:00 16:31:00 Event Clint Graham 01717.1.[address] 3.430.2.7 Hospit a .3.773456 l .8 2020-03-22 2020-03-22 Surgery Obi Kerr 1.2.840.1 [id number] 125 [id number] Methodi 12:53:00 14:38:[address] 3.430.2.7 Hospit a .3.260531 l .8 2019-11-19 2019-11-19 Office CHELSEA York 1.2.840.[id number] [place] [address] 10:50:53 15:23:52 Visit Oswald S AMBULATOR 350.1.13.21 College Y 0.2.7.2.686 of [id number] [facility] 300 e 2019-11-19 2019-11-19 Office CHELSEA York 1.2.840.114 [id number] 10:50:53 15:23:52 Visit Oswald S AMBULATOR 350.1.13.21 Y 0.2.7.2.686 [id number] 300 2019-11-11 2019-11-11 Emergency Nelia [facility] 1.2.840.114 [id number] [employer] 17:16:00 22:21:00 Lisa Pineda 350.1.13.10 i ty of [place] 4.2.7.2.686 [facility] [id number] [facility] 084 [address] 2019-11-11 2019-11-11 Emergency Nelia [facility] 1.2.840.114 [id number] 17:16:00 22:21:00 Lisa Pineda 350.1.13.10 [place] 4.2.7.2.686 [place] [id number] [facility] 2019-11-11 2019-11-11 Emergency X Wanda [facility] ERT [id number] [employer] 17:16:00 17:16:00 ity [facility] 2019-11-03 2019-11-03 Telephone Adriana Mosley2.840.1 [id number] [id number] Methodi 09:01:34 09:25:16 Consult Liss Baxter 90703.1.[address] 3.430.2.7 Hospit a .3.807026 l .8 2014-02-18 2014-02-18 Office [facility] [id number] [place] 00:00:00 00:00:00 Visit artie Marquez [id number] [facility] 2014-02-18 2014-02-18 Lab Report [facility] [id number] Memoria 00:00:00 00:00:00 artie Marquez [id number] [facility] 2013-01-23 2013-01-23 Lab Report [facility] 1702 [id number] Memoria 00:00:00 00:00:00 artie Marquez [id number] [facility] Results Test Description Test Time Test Comments Results Result Comments Source HEMATOLOGY 2021-12-22 20:37:00 Test Item Value Reference Range Interpretation Comme nts Eosinophils # (test code = 0.5 See_Comment [Automated message] The system Eosinophils #) which generat ed this result transmitted ref erence range: <=0.5. The reference r za was not used to interpret this result as normal/abnormal . [facility]XHVKKRQNL4755-38-14 20:37:00 Test Item Value Reference Range Interpretation Comments Glucose Lvl (test code = Glucose Lvl) 109 70-[address] [facility]AzieazlGKPKQFZQV4367-05-71 20:37:00 Test Item Value Reference Range Interpretation Comments BUN (test code = BUN) 35 7-[address] [facility]EswkrryXIEJHHNTK3545-51-90 20:37:00 Test Item Value Reference Range Interpretation Comments Creatinine Lvl (test code = Creatinine 3.70 0.50-1.40 Lvl) [facility] HospitalLmqedyfBWHIVLSHL8956-37-76 20:37:00 Test Item Value Reference Range Interpretation Comments Sodium Lvl (test code = Sodium Lvl) 142 135-[address] [facility] HospitalSaiopyrVNKGUGDNT4027-67-46 20:37:00 Test Item Value Reference Range Interpretation Comments Potassium Lvl (test code = Potassium 3.9 3.5-5.1 Lvl) [facility] HospitalNregwkmQEPVRKCOC9866-37-49 20:37:00 Test Item Value Reference Range Interpretation Comments Chloride Lvl (test code = Chloride Lvl) 108 95-[address] [facility]KqrfdlmEVAMUEWCB2502-97-99 20:37:00 Test Item Value Reference Range Interpretation Comments CO2 (test code = CO2) 26 24-[address] [facility]KjesmyoXRVARHRSN7042-11-96 20:37:00 Test Item Value Reference Range Interpretation Comments Calcium Lvl (test code = Calcium Lvl) 7.8 8.5-10.[address] [facility]XvhjmlaXEXVJEQDQ4276-05-69 20:37:00 Test Item Value Reference Range Interpretation Comments AGAP (test code = AGAP) 11.9 10.0-20.[address] [facility]CbrhgxqAXRSLVNNU5038-15-69 20:37:00 Test Item Value Reference Range Interpretation Comments eGFR (test code = eGFR) 16 [facility]mor[facility]zzGEUPJEPZQJ5272-94-50 20:37:00 Test Item Value Reference Range Interpretation Comments WBC X 10x3 (test code = WBC X 10x3) 9.8 3.7-10.4 [facility] CenterSrnwkviVVWJUVLSKT1540-39-57 20:37:00 Test Item Value Reference Range Interpretation Comments RBC X 10x6 (test code = RBC X 10x6) 2.88 4.70-6.10 [facility] CenterEgutztzJJDLATCEUE7558-41-35 20:37:00 Test Item Value Reference Range Interpretation Comments Hgb (test code = Hgb) 8.4 14.0-18.0 [place] 585382-11-11 20:37:00 Test Item Value Reference Range Interpretation Comments Hct (test code = Hct) 25.7 42.0-54.0 [place] 585382-11-11 20:37:00 Test Item Value Reference Range Interpretation Comments MCV (test code = MCV) 89.0 80.0-94.0 [place] 585382-11-11 20:37:00 Test Item Value Reference Range Interpretation Comments MCH (test code = MCH) 29.1 pg 27.0-31.0 [place] 585382-11-11 20:37:00 Test Item Value Reference Range Interpretation Comments MCHC (test code = MCHC) 32.6 32.0-36.0 [facility] CenterZimnnzjYEGJZOFSWL1877-21-47 20:37:00 Test Item Value Reference Range Interpretation Comments RDW (test code = RDW) 17.7 11.5-14.5 [facility] CenterMilghncXWLWTXHXHF3297-53-09 20:37:00 Test Item Value Reference Range Interpretation Comments Platelet (test code = Platelet) 346 133-450 [place] 585382-11-11 20:37:00 Test Item Value Reference Range Interpretation Comments MPV (test code = MPV) 6.7 7.4-10.4 [facility] CenterQyzzbszKVGVJJAOID0731-59-63 20:37:00 Test Item Value Reference Range Interpretation Comments Segs (test code = Segs) 81.8 45.0-75.0 [facility] CenterMcqiijnRQVVIMIAKD0417-60-10 20:37:00 Test Item Value Reference Range Interpretation Comments Lymphocytes (test code = Lymphocytes) 5.6 20.0-40.0 [place] 585382-11-11 20:37:00 Test Item Value Reference Range Interpretation Comments Monocytes (test code = Monocytes) 6.8 2.0-12.0 [facility] CenterBoghpxlNNTZABOAYZ5576-00-21 20:37:00 Test Item Value Reference Range Interpretation Comments Eosinophils (test code = 5.3 See_Comment [A utomated message] The Eosinophils) system which ge nerated this result tra nsmitted reference range : <=4.0. The reference r za was not used to int erpret this result as normal/abnormal . [facility] CenterXwbfcmxEMVAONMGXR3193-44-52 20:37:00 Test Item Value Reference Range Interpretation Comments Basophils (test code = 0.5 See_Comment [Aut omated message] The Basophils) system which ge nerated this result tra nsmitted reference range : <=1.0. The reference r za was not used to int erpret this result as normal/abnormal . [place] 585382-11-11 20:37:00 Test Item Value Reference Range Interpretation Comments Neutrophils # (test code = Neutrophils 8.0 1.5-8.1 #) [facility] CenterXaxdhumODSECNGFIV8158-07-58 20:37:00 Test Item Value Reference Range Interpretation Comments Lymphocytes # (test code = Lymphocytes 0.5 1.0-5.5 #) [facility] CenterLuywxowPXKPHTFKWC9840-67-76 20:37:00 Test Item Value Reference Range Interpretation Comments Monocytes # (test code 0.7 See_Comment [Aut omated message] The = Monocytes #) system which generated this result tra nsmitted reference range : <=0.8. The reference r za was not used to int erpret this result as normal/abnormal . [place] 58418022-11-08 20:59:51 Test Item Value Reference Range Interpretation Comments RADRPT (test code PROCEDURE INFORMATION: = RADRPT) Exam: XR Abdomen Exam date and time: 12/19/2021 1:16 PM Age: 76 years old Clinical indication: Pain; Additional info: /rectal pain post-colonoscopy, evaluating for bowel perf TECHNIQUE: Imaging protocol: Radiologic exam of the abdomen. Views: Frontal supine view of the abdomen. 1 View. COMPARISON: ABDOMEN/PELVIS GI BLEED CTA 12/16/2021 6:43 PM FINDINGS: Gastrointestinal tract: No pathologic bowel distention or obstruction. Intraperitoneal space: No pneumoperitoneum appreciated. Numerous surgical clips are noted in the right side of the abdomen. Bones/joints: Unremarkable. Soft tissues: No abnormal radiopaque densities. IMPRESSION: No bowel distention or pneumoperitoneum identified.Sekou Santiago MD On 12/19/2021 14:58:37; [id number] [facility] HospitalPkfogtuKKYXJFHJO2056-01-81 10:34:00 Test Item Value Reference Range Interpretation Comments Phosphorus (test code = Phosphorus) 3.9 2.5-4.[address] [facility] HospitalVqwfanvYDTAXNZUE1878-85-91 10:34:00 Test Item Value Reference Range Interpretation Comments Magnesium Lvl (test code = Magnesium 2.4 1.8-2.4 Lvl) [facility] HospitalHrpdtbmTFTDNZWRV7571-91-17 10:34:00 Test Item Value Reference Range Interpretation Comments Total Protein (test code = Total 6.2 6.4-8.4 Protein) [facility] HospitalBsoxgecHPHAWYAQN6667-75-62 10:34:00 Test Item Value Reference Range Interpretation Comments Albumin Lvl (test code = Albumin Lvl) 2.9 3.5-5.[address] [facility] HospitalAnwwacwHWXPOSAHT9989-57-54 10:34:00 Test Item Value Reference Range Interpretation Comments ALT (test code = ALT) 15 See_Comment [Auto mated message] The system which ge nerated this result transmit amado reference range : <=65. The reference range was not used to interpr et this result as shauna l/abnormal. [facility], TxPxdtkwbMUJBVURPG1362-57-97 10:34:00 Test Item Value Reference Range Interpretation Comments AST (test code = AST) 20 See_Comment [Auto mated message] The system which ge nerated this result transmit amado reference range : <=37. The reference range was not used to interpr et this result as shauna l/abnormal. [facility], TxRltxnkhWECUUBMLI7688-63-09 10:34:00 Test Item Value Reference Range Interpretation Comments Alk Phos (test code = Alk Phos) 77 39-[address] [facility], TxOlgnxbmRDWSJTJXM3361-52-57 10:34:00 Test Item Value Reference Range Interpretation Comments Bili Total (test code = Bili Total) 0.4 0.2-1.[address] [facility], TxDiaqggwDZMLUHRFA0597-86-33 10:34:00 Test Item Value Reference Range Interpretation Comments Bili Direct (test code 0.1 See_Comment [Aut omated message] The = Bili Direct) system which generated this result tra nsmitted reference range : <=0.3. The reference r za was not used to int erpret this result as shauna l/abnormal. [facility], TxWnfssayGVVLMEYYT3865-04-52 10:34:00 Test Item Value Reference Range Interpretation Comments Bili Indirect (test 0.3 See_Comment [Automa amado message] The code = Bili Indirect) system which generated this result tra nsmitted reference range : <=1.0. The reference r za was not used to int erpret this result as normal/abnormal . [facility], TxNxkmlhoDFJXFEZMV8125-41-75 10:34:00 Test Item Value Reference Range Interpretation Comments Globulin (test code = Globulin) 3.3 2.7-4.[address] [facility], TxToezrujWRHMNWRKY6612-85-05 10:34:00 Test Item Value Reference Range Interpretation Comments A/G Ratio (test code = A/G Ratio) 0.9 1 0.7-1.6 [facility] TLGKWYK1613-42-70 13:09:00 Test Item Value Reference Range Interpretation Comments RBC product (test code Product available = RBC product) 3(12/18/21 7:09 AM) [facility]ajgibIMSLKN4656-48-78 11:40:13 Test Item Value Reference Range Interpretation Comments RADRPT (test code PROCEDURE INFORMATION: = RADRPT) Exam: US Duplex Lower Extremity Veins, Bilateral Exam date and time: 12/17/2021 4:28 AM Age: 76 years old Clinical indication: /r/o dvt TECHNIQUE: Imaging protocol: Real-time Duplex ultrasound of the bilateral extremities with 2-D maya scale, color Doppler flow and spectral waveform analysis with image documentation. Complete exam focused on the bilateral lower extremity veins. COMPARISON: ABDOMEN/PELVIS GI BLEED CTA 12/16/2021 6:43 PM FINDINGS: Right deep veins: Unremarkable. The common femoral, femoral, proximal profunda femoral veins are patent without thrombus. Normal Doppler waveforms. Normal compressibility and/or augmentation response. Right superficial veins: Saphenofemoral junction is patent without thrombus. Left deep veins: Unremarkable. The common femoral, femoral, proximal profunda femoral and popliteal veins are patent without thrombus. Normal Doppler waveforms. Normal compressibility and/or augmentation response. Left superficial veins: Saphenofemoral junction is patent without thrombus. 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 IMPRESSION: No evidence of deep vein thrombosis. Nazia Sanford MD On 12/17/2021 05:39:24; [id number] [facility]2022-11-06 01:41:00 Test Item Value Reference Range Interpretation Comments Source Respiratory Nasophrngl Swb Panel PCR (test code = *NA*(12/16/21 8:41 PM) Source Respiratory Panel PCR) [facility]2022-11-06 01:41:00 Test Item Value Reference Range Interpretation Comments Influenza A PCR (test Negative *NA*(12/16/21 code = Influenza A PCR) 8:41 PM) [facility]2022-11-06 01:41:00 Test Item Value Reference Range Interpretation Comments Influenza B PCR (test Negative *NA*(12/16/21 code = Influenza B PCR) 8:41 PM) [facility]2022-11-06 01:41:00 Test Item Value Reference Range Interpretation Comments RSV PCR (test code = Negative *NA*(12/16/21 RSV PCR) 8:41 PM) [facility] VigbgxjPLVIFN1338-73-42 01:08:35 Test Item Value Reference Range Interpretation Comments RADRPT (test Radiation Dose CTDIVOL = 0 code = RADRPT) (mGy): DLP = 3313 (mGy-cm)PROCEDURE INFORMATION: Exam: CTA Abdomen and Pelvis With Contrast, GI Bleeding Exam date and time: 12/16/2021 6:43 PM Age: 76 years old Clinical indication: /eval for diverticular bleeding/ diverticulitis TECHNIQUE: Imaging protocol: Computed tomographic angiography of the abdomen and pelvis with contrast. 3D rendering (Not supervised by radiologist): MIP and/or 3D reconstructed images were created by the technologist. Radiation optimization: All CT scans at this facility use at least one of these dose optimization techniques: automated exposure control; mA and/or kV adjustment per patient size (includes targeted exams where dose is matched to clinical indication); or iterative reconstruction. Contrast material: OMNI 350; Contrast volume: 85 ml; Contrast route: INTRAVENOUS (IV); COMPARISON: No relevant prior studies available. RADIATION DOSE METRICS: Total DLP (mGy-cm): 3313 FINDINGS: Lungs: Clear left lung base. Pleural space: Small right pleural effusion associated with mild pleural thickening suggesting inflammation or empyema. Mild adjacent pulmonary opacity is most consistent with subsegmental atelectasis. Heart: Heart size at the upper limits of normal associated with mild to moderate coronary calcifications. Aorta: Normal caliber mildly to moderately atherosclerotic abdominal aorta without aneurysm or dissection. Celiac trunk and mesenteric arteries: Mild mixed atherosclerotic plaque at the celiac trunk origin causing mild narrowing. The remaining portions are mildly atherosclerotic, but well opacified. Mild calcified plaques in the SMA origin and proximal extent causing areas of mild narrowing. The remaining portions are well opacified. Renal arteries: Surgically absent right main renal artery. Wflm-yi-jdptyiuw atherosclerosis in narrowing in the left main renal artery. Right iliac arteries: Fvus-kx-lvprdprr atherosclerosis throughout the right common iliac artery, right external iliac artery, and right internal iliac artery causing mild multifocal narrowing. Left iliac arteries: Rwog-nf-nrppcnkx atherosclerosis throughout the left common iliac artery, left external iliac artery, and left internal iliac artery causing mild multifocal narrowing. Veins: Mild mixing artifact suspected in the mildly prominent right common femoral vein. Liver: No mass. Gallbladder and bile ducts: Unremarkable. No calcified stones. No ductal dilation. Pancreas: Unremarkable. No mass. No ductal dilation. Spleen: Normal size spleen with heterogeneous perfusion. Adrenal glands: Small low-attenuation left adrenal gland nodule measuring 1.1 cm most consistent with an adenoma. Normal right adrenal gland. Kidneys and ureters: Postoperative change of right nephrectomy. Moderate to severe left renal cortical atrophy and scarring without urolithiasis or focal lesion. Minimal left hydroureteronephrosis with mild thickening of the left renal pelvis that may represent mild pyelitis or pyelonephritis. Clinical correlation is required. Stomach and bowel: Nonobstructive bowel gas pattern associated with mild colonic diverticulosis and colonic fluid suggesting diarrheal state. Mild wall thickening and induration is seen involving a diverticulum and a short segment of the left side of the transverse colon consistent with mild acute diverticulitis. Precontrast images demonstrate subtle areas of hyperattenuation within diverticula in the sigmoid colon suggesting residual food/medication or possibly small amounts of residual intraluminal hemorrhage. Postoperative change in the under distended mildly thick-walled rectosigmoid colon. Subtle curvilinear areas of enhancement seen in the distal rectum and anus suggesting small vessels vessels, hemorrhoids, or minimal extravasation. Appendix: No evidence of appendicitis. Intraperitoneal space: Unremarkable. No free air. No significant fluid collection. Lymph nodes: Scattered small central mesenteric and retroperitoneal lymph nodes. Small pericardial lymph nodes. Urinary bladder: Unremarkable. No mass. Reproductive: Mildly enlarged prostate and seminal vesicles should be correlated clinically. Bones/joints: Moderate lumbar spondylosis and facet joint arthrosis associated with multilevel disc bulges causing bysu-eb-lobzoupi spinal canal narrowing and neural foraminal narrowing greatest at L3-L4. No acute fracture or dislocation. Soft tissues: Minimal bilateral gynecomastia. IMPRESSION: 1. Nonobstructive bowel gas pattern associated with mild colonic diverticulosis and colonic fluid suggesting diarrheal state. Mild wall thickening and induration is seen involving a diverticulum and a short segment of the left side of the transverse colon consistent with mild acute diverticulitis. Precontrast images demonstrate subtle areas of hyperattenuation within diverticula in the sigmoid colon suggesting residual food/medication or possibly small amounts of residual intraluminal hemorrhage. 2. Postoperative change in the under distended mildly thick-walled rectosigmoid colon. Subtle curvilinear areas of enhancement seen in the distal rectum and anus suggesting small vessels vessels, hemorrhoids, or minimal extravasation. A follow-up radionuclide GI bleeding study may be helpful.3. Mild mixing artifact suspected in the mildly prominent right common femoral vein. Follow-up Doppler evaluation may be helpful to better exclude occult DVT. 4. Mildly enlarged prostate and seminal vesicles should be correlated clinically. 5. Postoperative change of right nephrectomy. 6. Moderate to severe left renal cortical atrophy and scarring without urolithiasis or focal lesion. Minimal left hydroureteronephrosis with mild thickening of the left renal pelvis that may represent mild pyelitis or pyelonephritis. Clinical correlation is required. 7. Small low-attenuation left adrenal gland nodule measuring 1.1 cm most consistent with an adenoma. 8. No acute fracture or dislocation. 9. Small right pleural effusion associated with mild pleural thickening suggesting inflammation or empyema. Mild adjacent pulmonary opacity is most consistent with subsegmental atelectasis. 10. Heart size at the upper limits of normal associated with mild to moderate coronary calcifications. THIS REPORT CONTAINS FINDINGS THAT MAY BE CRITICAL TO PATIENT CARE. The findings were verbally communicated via telephone conference with Dr. Pratik Cabrera at 8:06 PM CDT on 12/16/2021. The findings were acknowledged and understood.Anoop Mays MD On 12/16/2021 20:07:19; [id number] [facility]vfxvpcIAHYSERGV8608-32-57 16:02:00 Test Item Value Reference Range Interpretation Comments Lipase Lvl (test code = Lipase Lvl) 99 73-[address] [facility]YtzfvucNYBEGCVFH6256-00-59 16:02:00 Test Item Value Reference Range Interpretation Comments Procalcitonin Lvl (test 0.99 See_Comment [Au tomated message] code = Procalcitonin Lvl) e system which generated this result transmitted ref erence range: <=0.10. The reference range was not used to interpr et this result as normal/abnormal . [facility]fcumiqGEKPCSNDA0012-46-96 16:02:00 Test Item Value Reference Range Interpretation Comments Ketone Quantitative (test code = Ketone 0.44 Quantitative) [place] [id number] 16:02:00 Test Item Value Reference Range Interpretation Comments Ethanol Lvl (test code = Ethanol <3.0 mg/dL Lvl) [facility] HospitalRzugqwyFBAMTPAMQ8238-54-64 16:02:00 Test Item Value Reference Range Interpretation Comments Etoh (%) (test code = Etoh (%)) <0.003 % [facility] HospitalZccdvjmLZWSQBLYU5635-36-38 16:02:00 Test Item Value Reference Range Interpretation Comments Hgb A1C (test code = Hgb A1C) 5.[address] [facility]GycgsfyHZOZYEDDZ0810-46-79 16:02:00 Test Item Value Reference Range Interpretation Comments LDL (Calculated) (test code = LDL 37 (Calculated)) [facility]954[facility]-33 16:02:00 Test Item Value Reference Range Interpretation Comments VLDL (test code = VLDL) [address] [facility]IapgfviKPARVGCPW9778-22-62 16:02:00 Test Item Value Reference Range Interpretation Comments Trig (test code = Trig) [address] [facility] HospitalCdseyknAZBQYSQAM4749-89-38 16:02:00 Test Item Value Reference Range Interpretation Comments Chol (test code = Chol) [address] [facility] HospitalAncamxfRXERHWQTW0338-88-97 16:02:00 Test Item Value Reference Range Interpretation Comments HDL (test code = HDL) [address] [facility]SgusnpaMXNHKLPLB2443-26-18 16:02:00 Test Item Value Reference Range Interpretation Comments Chol/HDL Ratio (test code = Chol/HDL 4.04 1 4.00-7.30 Ratio) [facility] HospitalDltylmtDDOOFMRFU5198-64-80 16:02:00 Test Item Value Reference Range Interpretation Comments TSH (test code = TSH) 0.890 0.360-3.[address] [facility]GfeyndsWGGFKOUQT3140-83-65 16:02:00 Test Item Value Reference Range Interpretation Comments Lactic Acid Lvl (test code = Lactic 1.2 0.5-2.2 Acid Lvl) [facility]bbujynUQODYAIBRI0813-33-34 16:02:00 Test Item Value Reference Range Interpretation Comments PTT (test code = PTT) 32.8 s 22.9-35.8 [place] [id number] 16:02:00 Test Item Value Reference Range Interpretation Comments PT (test code = PT) 15.8 s 12.0-14.7 [place] [id number] 16:02:00 Test Item Value Reference Range Interpretation Comments INR (test code = INR) 1.27 1 0.85-1.17 [place] [id number] 16:02:00 Test Item Value Reference Range Interpretation Comments Hep A IgM (test code = Hep A NON-REACTIVE IgM) [facility] CenterKeoulhhBOYQLBLSDA3596-94-69 16:02:00 Test Item Value Reference Range Interpretation Comments Hep Bs Ag (test code = Hep Bs NON-REACTIVE Ag) [facility] CenterSlktdgkZMQBAVAHRJ8607-70-70 16:02:00 Test Item Value Reference Range Interpretation Comments Hep B Core IgM (test code = Hep NON-REACTIVE B Core IgM) [facility] CenterUdmbxhyCAXWMTHPFQ2176-47-49 16:02:00 Test Item Value Reference Range Interpretation Comments Hep C Ab (test code = Hep C Ab) NON-REACTIVE [facility] CenterFtmwuxiTOGXOHKNHX8010-69-87 16:02:00 Test Item Value Reference Range Interpretation Comments Hep Signal to Cut-Off (test code = Hep no gt Signal to Cut-Off) [facility] [place]Shelf GHWKNQN9703-11-28 11:52:00 Test Item Value Reference Range Interpretation Comments ABO/Rh (test code = ABO/Rh) O POS [facility] [employer] [id number] 11:52:00 Test Item Value Reference Range Interpretation Comments Antibody Scrn (test Negative (12/16/21 6:52 code = Antibody Scrn) AM) [facility] CenterNiohqbeTVEXKIARP3231-28-74 11:52:00 Test Item Value Reference Range Interpretation Comments Ca Ion WB (test code = Ca Ion WB) 1.05 1.05-1.25 [facility] CenterIotapqcMRGTNREKF8905-15-74 11:52:00 Test Item Value Reference Range Interpretation Comments Ca Ion at pH 7.4 WB (test code = Ca Ion 1.07 1.05-1.25 at pH 7.4 WB) [facility] CenterOkqpdyvLZPFURTPLP3370-45-81 11:52:00 Test Item Value Reference Range Interpretation Comments RBC Morph (test code = Normal (12/16/21 6:52 RBC Morph) AM) [facility] CenterBhtghaeEMPOIYZZOB6945-48-14 11:52:00 Test Item Value Reference Range Interpretation Comments Plt Morph (test code = Normal (12/16/21 6:52 Plt Morph) AM) [facility] CenterBASI METABOLIC [id number] 07:53:52 Test Item Value Reference Range Interpretation Comments SODIUM (BEAKER) 138 meq/L 136-145 (test code = 381) POTASSIUM 4.1 meq/L 3.5-5.1 (BEAKER) (test code = 379) CHLORIDE (BEAKER) 102 meq/L 98-107 (test code = 382) CO2 (BEAKER) 24 meq/L 22-29 (test code = 355) BLOOD UREA 18 mg/dL 7-21 NITROGEN (BEAKER) (test code = 354) CREATININE 3.35 mg/dL 0.57-1.25 H (BEAKER) (test code = 358) GLUCOSE RANDOM 82 mg/dL 70-105 (BEAKER) (test code = 652) CALCIUM (BEAKER) 8.8 mg/dL 8.4-10.2 (test code = 697) EGFR (BEAKER) 19 Interpretati on of eGFR (test code = mL/min/1.73 values [...] not appl icable for dialysis patien ts Methods And Procedures Analyst ID - KEIKO BCBC W/PLT COUNT & AUTO LZCGVSRXKJJG8965-56-14 06:30:27 Test Item Value Reference Range Interpretation [...] PERCENT (BEAKER) (test code = 2801) CT, [id number] 15:16:00Reason for exam:->diverticulitisWhat is the patient's sedation requirement?->No Sedation [facility] [place] : 1945 Sex: MFINAL REPORT CT abdomen [...] appearing right pleural effusion. Signed: Ryan Thompson MDReport Verified Date/Time: 12/11/2021 15:16:47 [facility] METABOLIC [id number] 08:00:53 Test Item Value Reference Range Interpretation [...] not appl icable for dialysis patien ts Methods And Procedures Analyst ID - TOO MHEPATITIS B SURFACE [id number] 07:02:25 Test Item Value Reference Range Interpretation Comments HEPATITIS B SURFACE ANTIGEN (2) Nonreactive Nonreactive (BEAKER) (test code = 2585) Specimen is considered negative for HBsAg.CBC W/PLT COUNT & AUTO HLTCGHOVWSCI4987-41-70 05:50:36 Test Item Value Reference Range Interpretation [...] 0.00-1.00 PERCENT (BEAKER) (test code = 2801) [id number] 15:25:56 Test Item Value Reference Range Interpretation Comments PHOSPHORUS (BEAKER) (test code = 4.2 mg/dL 2.3-4.7 604) Methods And Procedures Analyst ID - PIAYA LC-REACTIVE [id number] 12:05:31 Test Item Value Reference Range Interpretation Comments C-REACTIVE PROTEIN (BEAKER) (test 11.71 mg/dL 0.00-0.50 H code = 676) Methods And Procedures Analyst ID - PIAYA LSARS-CoV2/RT-PCR (Asymptomatic ONLY)2021-12-10 11:51:55 Test Item Value Reference Interpretation Comments Range SARS-COV2/RT-PCR Negative Negative The SARS-Co V-2 (test code = target nucleic 81465-9) acids are not detected in thi s [...] revoked sooner. Fact Sheet for Healthcare Providers: https://www.Scint-X/Documents/Xp ert%20Xpress%20SAR S%20CoV-2/Fact%20S heets/302-3802%20S ARS-COV-2%20HEALTH CARE%20PROVIDERS%2 0FACT%20SHEET.pdf Fact Sheet for Healthcare Patients: https://www.Scint-X/Documents/Xp ert%20Xpress%20SAR S%20CoV-2/Fact%20S heets/302-3801%20S ARS-COV-2%20PATIEN T%20FACT%20SHEET.p df Lab Interpretation Normal (test code = 32533-7) [facility]2021-12-10 11:51:55 Test Item Value Reference Interpretation Comments Range SARS-COV2/RT-PCR Negative Negative The SARS-Co V-2 (test code = target nucleic 67316-9) acids are not detected in thi s [...] om SARS-CoV-2 in a nasopharyngeal swab specimen colle amado from individual s suspected of COVID-19 [...] revoked sooner. Fact Sheet for Healthcare Providers: https://www.Scint-X/Documents/Xp ert%20Xpress%20SAR S%20CoV-2/Fact%20S heets/302-3802%20S ARS-COV-2%20HEALTH CARE%20PROVIDERS%2 0FACT%20SHEET.pdf Fact Sheet for Healthcare Patients: https://www.Scint-X/Documents/Xp ert%20Xpress%20SAR S%20CoV-2/Fact%20S heets/302-3801%20S ARS-COV-2%20PATIEN T%20FACT%20SHEET.p df Lab Interpretation Normal (test code = 68308-5) [facility]2021-12-10 11:51:55 Test Item Value Reference Interpretation Comments Range SARS-COV2/RT-PCR Negative Negative The SARS-Co V-2 (test code = target nucleic 04267-4) acids are not detected in thi s [...] revoked sooner. Fact Sheet for Healthcare Providers: https://www.Scint-X/Documents/Xp ert%20Xpress%20SAR S%20CoV-2/Fact%20S heets/302-3802%20S ARS-COV-2%20HEALTH CARE%20PROVIDERS%2 0FACT%20SHEET.pdf Fact Sheet for Healthcare Patients: https://wwwBabyWatch/Documents/Xp ert%20Xpress%20SAR S%20CoV-2/Fact%20S heets/302-3801%20S ARS-COV-2%20PATIEN T%20FACT%20SHEET.p df Lab Interpretation Normal (test code = 37772-1) [facility]2021-12-10 11:51:55 Test Item Value Reference Interpretation Comments Range SARS-COV2/RT-PCR Negative Negative The SARS-Co V-2 (test code = target nucleic 77252-1) acids are not detected in thi s [...] revoked sooner. Fact Sheet for Healthcare Providers: https://www.Scint-X/Documents/Xp ert%20Xpress%20SAR S%20CoV-2/Fact%20S heets/302-3802%20S ARS-COV-2%20HEALTH CARE%20PROVIDERS%2 0FACT%20SHEET.pdf Fact Sheet for Healthcare Patients: https://wwwBabyWatch/Documents/Xp ert%20Xpress%20SAR S%20CoV-2/Fact%20S heets/302-3801%20S ARS-COV-2%20PATIEN T%20FACT%20SHEET.p df Lab Interpretation Normal (test code = 69842-9) [facility]2021-12-10 11:51:55 Test Item Value Reference Interpretation Comments Range SARS-COV2/RT-PCR Negative Negative The SARS-Co V-2 (test code = target nucleic 17482-3) acids are not detected in thi s [...] revoked sooner. Fact Sheet for Healthcare Providers: https://www.Scint-X/Documents/Xp ert%20Xpress%20SAR S%20CoV-2/Fact%20S heets/302-3802%20S ARS-COV-2%20HEALTH CARE%20PROVIDERS%2 0FACT%20SHEET.pdf Fact Sheet for Healthcare Patients: https://www.Scint-X/Documents/Xp ert%20Xpress%20SAR S%20CoV-2/Fact%20S heets/302-3801%20S ARS-COV-2%20PATIEN T%20FACT%20SHEET.p df Lab Interpretation Normal (test code = 47216-2) [facility])2021-12-10 11:51:55 Test Item Value Reference Range Interpretation Comments SARS-COV2/RT-PCR Negative Negative The SARS-Co V-2 target (test code = nucleic acids a re not 2260069) detected in thi s specimen. Negative result [...] revoked sooner. Fact Sheet for Healthcare Providers: https://www.advisorCONNECT m/Documents/Xpert%20Xpress%20SARS%20CoV-2/Fact%20Sheets/302-3802%23UVFI-QNF-5%20 HEALTHCARE%20PROVIDERS%20FACT%20SHEET.pdf Fact Sheet for Healthcare Patients: https://www.Jibe/Documents/Xpert%20Xp ress%20SARS%20CoV-2/Fact%20Sheets/302-3801%37GKXR-SDP-8%20PATIENT%20FACT%20SHEET .pdfBASI METABOLIC [id number] 05:41:17 Test Item Value Reference Range Interpretation [...] G3b Moderately to s everely 30-44 G4 Sever ly decreased 15-29 G5 Kidney failure <15Repo rted eGFR is based on the CKD-EPI 2020 equation t hat does not use a race coefficientEsti mated GFR is not as accur ate as Creatinine Mercedes phillip in predicting glom erular filtration rate . Estimated GFR is not appl icable for dialysis patien ts Methods And Procedures Analyst ID - PIAYA LCBC W/PLT COUNT & AUTO [id number] 04:58:29 Test Item Value Reference Range Interpretation [...] (BEAKER) (test code = 2801) HEMOGLOBIN AND QAMJSXJVGP3214-64-64 19:02:09 Test Item Value Reference Range Interpretation Comments HEMOGLOBIN (BEAKER) (test code = 11.6 GM/DL 13.7-17.5 L 410) HEMATOCRIT (BEAKER) (test code = 37.0 % 40.1-51.0 L 411) Methods And Procedures Analyst ID - [id number] 12 [id number] 22:14:01 Test Item Value Reference Range Interpretation Comments Ventricular rate (test code = 253) Atrial rate (test code = 255) WV interval (test code = 266) QRSD interval [...] of 12-JUN-2021 16:49,-No significant change was found- [facility] xyig5873-38-85 22:14:01 Test Item Value Reference Range Interpretation Comments Ventricular rate (test code = 253) Atrial rate (test code = 255) WV interval (test code = 266) QRSD interval [...] of 12-JUN-2021 16:49,-No significant change was found- [address]2022-05-04 22:14:01 Test Item Value Reference Range Interpretation Comments Ventricular rate (test code = 253) Atrial rate (test code = 255) WV interval (test code = 266) QRSD interval [...] of 12-JUN-2021 16:49,-No significant change was found- [address]2022-05-04 22:14:01 Test Item Value Reference Range Interpretation Comments Ventricular rate (test code = 253) Atrial rate (test code = 255) WV interval (test code = 266) QRSD interval [...] of 12-JUN-2021 16:49,-No significant change was found- [address]2022-05-04 22:14:01 Test Item Value Reference Range Interpretation Comments Ventricular rate (test code = 253) Atrial rate (test code = 255) WV interval (test code = 266) QRSD interval [...] of 12-JUN-2021 16:49,-No significant change was found- [facility] RgggzbisKSFO-CpC-7 (COVID-19) RNA [Presence] in Respiratory specimen by GREGORIO with probe xpmmminah5176-90-15 16:18:00 Test Item Value Reference Range Interpretation Comments SARS-CoV-2 (COVID-19) RNA Not detected [Presence] in Respiratory specimen by GREGORIO with probe detection (test code = 18803-4) Whether patient is employed in a Unknown healthcare setting (test code = 21034-5) Whether the patient has symptoms Unknown related to condition of interest (test code = 43659-8) Whether the patient was Unknown hospitalized for condition of interest (test code = 49990-8) Whether the patient was admitted Unknown to intensive care unit (ICU) for condition of interest (test code = 14238-3) Whether patient resides in a Unknown congregate care setting (test code = 47849-1) status (test code = Unknown 65022-3) Date and time of symptom onset Unknown (test code = 39747-6) [facility] ED Preliminary Interpretation - Not an Kfmdo8409-31-66 02:34:56 Test Item Value Reference Range Interpretation Comments JACQUELYN (test code = JACQUELYN) Arturo Farnsworth MD 06/13/2021 9:00 [facility] Preliminary Interpretation - Not an OrderPerformed by: Arturo Farnsworth MDAuthorized by: Arturo Farnsworth MD ECG reviewed by ED Physician in the absence of a machine setup operator: yes Interpretation: Interpretation: abnormal Rate: ECG rate: 65 ECG rate assessment: normal Rhythm: Rhythm: sinus rhythm and A-V block Ectopy: Ectopy: none QRS: QRS axis: Normal QRS intervals: NormalConduction: Conduction: abnormal 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 ST segments: ST segments: Non-specific Lab Interpretation Abnormal (test code = 11685-5) [facility] ED Preliminary Interpretation - Not an Lwbwe8366-11-14 02:34:56 Test Item Value Reference Range Interpretation Comments JACQUELYN (test code = JACQUELYN) Arturo Farnsworth MD 06/13/2021 9:00 [facility] Preliminary Interpretation - Not an OrderPerformed by: Arturo Farnsworth MDAuthorized by: Arturo Farnsworth MD ECG reviewed by ED Physician in the absence of a machine setup operator: yes Interpretation: Interpretation: abnormal Rate: ECG rate: 65 ECG rate assessment: normal Rhythm: Rhythm: sinus rhythm and A-V block Ectopy: Ectopy: none QRS: QRS axis: Normal QRS intervals: NormalConduction: Conduction: abnormal 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 ST segments: ST segments: Non-specific Lab Interpretation Abnormal (test code = 78885-2) [facility] ED Preliminary Interpretation - Not an Anvjk1411-24-17 02:34:56 Test Item Value Reference Range Interpretation Comments JACQUELYN (test code = JACQUELYN) Arturo Farnsworth MD 06/13/2021 9:00 [facility] Preliminary Interpretation - Not an OrderPerformed by: Arturo Farnsworht MDAuthorized by: Artuor Farnsworth MD ECG reviewed by ED Physician in the absence of a machine setup operator: yes Interpretation: Interpretation: abnormal Rate: ECG rate: 65 ECG rate assessment: normal Rhythm: Rhythm: sinus rhythm and A-V block Ectopy: Ectopy: none QRS: QRS axis: Normal QRS intervals: NormalConduction: Conduction: abnormal 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 ST segments: ST segments: Non-specific Lab Interpretation Abnormal (test code = 05470-4) [facility] ED Preliminary Interpretation - Not an [id number] 02:34:56 Test Item Value Reference Range Interpretation Comments JACQUELYN (test code = JACQUELYN) Arturo Farnsworth MD 06/13/2021 9:00 [facility] Preliminary Interpretation - Not an OrderPerformed by: Arturo Farnsworth MDAuthorized by: Arturo Farnsworth MD ECG reviewed by ED Physician in the absence of a machine setup operator: yes Interpretation: Interpretation: abnormal Rate: ECG rate: 65 ECG rate assessment: normal Rhythm: Rhythm: sinus rhythm and A-V block Ectopy: Ectopy: none QRS: QRS axis: Normal QRS intervals: NormalConduction: Conduction: abnormal 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 ST segments: ST segments: Non-specific Lab Interpretation Abnormal (test code = 52231-2) [facility] ED Preliminary Interpretation - Not an [id number] 02:34:56 Test Item Value Reference Range Interpretation Comments JACQUELYN (test code = JACQUELYN) Arturo Farnsworth MD 06/13/2021 9:00 [facility] Preliminary Interpretation - Not an OrderPerformed by: Arturo Farnsworth MDAuthorized by: Arturo Farnsworth MD ECG reviewed by ED Physician in the absence of a machine setup operator: yes Interpretation: Interpretation: abnormal Rate: ECG rate: 65 ECG rate assessment: normal Rhythm: Rhythm: sinus rhythm and A-V block Ectopy: Ectopy: none QRS: QRS axis: Normal QRS intervals: NormalConduction: Conduction: abnormal 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 ST segments: ST segments: Non-specific Lab Interpretation Abnormal (test code = 06268-7) [facility] CHEST 1 [id number] 14:08:00 [facility] [place]EName: DARIEN HUYNH : 1945 Sex: M FAX: Sekou Amezcua [phone] [place]: [address]: DIS Name: DARIEN HUYNH [facility] [place] : 1945 Age/S: 74/M [address] [place] [address] Bl Unit #: [id number] Loc: [place] [address] Phys: Sekou Curtis MD Acct: [id number] Dis Date: Status: DIS IN PHONE #: [phone] Exam Date: 05/31/20201405 FAX #: [phone] Reason: HD protocol, need to make sure no TB EXAMS: CPT CODE: [id number] XR CHEST 1 V 11519 EXAM: Single view AP chest. EXAM DATE: [...] By: Enedelia Orig Print D/T: S: 05/31/2020 (8982) PAGE 1 Signed Report- XR CHEST 1 [id number] 14:08:[address] [facility] SMITHName: DARIEN HUYNH : 1945 Sex: M FAX: eSkou Morel [phone] [place]: St: ADM Name: DARIEN HUYNH [facility] : 1945 Age/S: 74/M [address] [facility] [facility] [address] Unit #: [id number] Loc: [address] [address] Phys: Sekou Curtis MD Acct: [id number] Dis Date: Status: ADM IN PHONE #: [phone] Exam Date: 05/31/20201405 FAX #: [phone] Reason: HD protocol, need to make sure no TB EXAMS: CPT CODE: [id number] XR CHEST 1 V 80651 EXAM: Single view AP chest. EXAM DATE: [...] Curtis Technologist: RT Marques(Artie) Trnscrd Date/Time/By: 05/31/2020 (1408): By: Enedelia Orig Print D/T: S: 05/31/2020 (4057) PAGE 1 Signed ReportBASIC METABOLIC [id number] 05:15:00 Test Item Value Reference Range Interpretation [...] code = 8.5 mg/dL 8.0-10.5 N CA) [id number] 05:15:00 Test Item Value Reference Range Interpretation Comments ALBUMIN (test code = ALB) 3.10 g/dL 3.4-5.0 L [id number] 05:15:00 Test Item Value Reference Range Interpretation Comments PREALBUMIN (test code = PREALB) 27.0 mg/dL 16.0-40.0 N [id number] 23:17:00 Test Item Value Reference Range Interpretation Comments GLUBED (test code = 95 MG/DL 70-110 N Performe d by certified GLUBED) flanging machine operator at [facility] BASIC METABOLIC [id number] 09:36:00 Test Item Value Reference Range Interpretation [...] sly reported CA) result: 8.2 mg/dLEdited by: [facility] on 05/29/20:876608 / 0935: CA previo usly reported as: 8. 2 mg/dL BASIC METABOLIC [id number] 07:53:00 Test Item Value Reference Range Interpretation [...] 8.2 mg/dL 8.0-10.5 N CA) BASIC METABOLIC [id number] 04:28:00 Test Item Value Reference Range Interpretation [...] 9.3 mg/dL 8.0-10.5 N CA) CBC W/AUTO [id number] 08:31:00 Test Item Value Reference Range Interpretation [...] (test code NO = MDIFF) BASIC METABOLIC [id number] 07:59:00 Test Item Value Reference Range Interpretation [...] CA) - USG NDL PLACEMENT (Bxg/Asp)2020-05-24 15:12:00 [facility] 1945 Sex: M Name: DARIEN HUYNH [facility] [place] : 1945 Age/S: 74 / M [address] [place] [address] Unit #: [id number] Loc:KR[place]ST[place] [address] Phys: Jonathan Sheikh SOLAR PHOTOVOLTAIC INSTALLER Acct: [id number] Dis Date: Status: DIS IN PHONE #: [phone] Exam Date: 05/24/2020 1434 FAX #: [phone] Reason: right aka fluid collection EXAMS: CPT CODE: [id number] USG NDL PLACEMENT (Bxg/Asp) 66930 PROCEDURE: Ultrasound-guided right knee stump flui d [...] (1511) CarlitoMP37 Orig Print D/T: S: 05/24/2020 (5815) Probe: PAGE 1 Signed Report- USG NDL PLACEMENT (Bxg/Asp)2020-05-24 15:12:00 [facility] [place]: DARIEN HUYNH : 1945 Sex: M Name: DARIEN HUYNH : 1945 Age/S: 74 / M [address] [place] [address] Unit #: [id number] Loc: [place] [address] Phys: Jonathan Sheikh SOLAR PHOTOVOLTAIC INSTALLER Acct: [id number] Dis Date: Status: ADM IN PHONE #: [phone] Exam Date: 05/24/2020 1434 FAX #: [phone] Reason: right aka fluid collection EXAMS: CPT CODE: [id number] USG NDL PLACEMENT (Bxg/Asp) 94232 PROCEDURE: Ultrasound-guided right knee stump flu id collection. INDICATION: Above knee amputation with complex [...] (1511) [email or web address] Orig Print D/T: S: 05/24/2020 (1515) Probe: PAGE 1 Signed Report- CT LOWER EXTRM W/O C [id number] 18:02:00 [facility] 1945 Sex: M Name: DARIEN HUYNH [facility] : 1945 Age/S: 74 / M [address] [place] [address] Unit #: [id number] Loc: [place] [address] Phys: Jonathan Sheikh SOLAR PHOTOVOLTAIC INSTALLER Acct: [id number] Dis Date: Status: DIS IN PHONE #: [phone] Exam Date: 05/23/2020 1728 FAX #: [phone] Reason: right bka, r/o fluid collection EXAMS: CPT CODE: [id number] [place] LOWER EXTRM W/[place] [address] [place] right femur without contrast. INDICATION: Righ t below knee amputation. Fluid collection. COMPARISON: None. [...] iterative reconstruction techniques. DLP: 566 mGy-cm FINDINGS: Wvsfo-iij-zktr amputation has been performed. A permeative pattern [...] loculations measuring approximately 6 cm AP, 5.7 cmtransverse, and 3.8 cm craniocaudal dimension. Surrounding fatty injection is seen. IMPRESSION: Above the knee amputation changes with complex soft tissue fluid collection at the stump site. There is loss of fatty medullary density at the stump site. Osteomyelitis is not excluded. Correlate with MRI as clinically indicated. SL: SG-H at 1802 Reported and signed by: Dominic Mena M.D. CC: Sekou Curtis; Jonathan Sheikh SOLAR PHOTOVOLTAIC INSTALLER Technologist:RT Lindsay(R)(CT) CTDI: DLP: Trnscb Date/Time: 05/23/2020 (1801) [email or web address] Orig PrintD/T: S: 05/23/2020 (1805) PAGE 1 Signed Report- CT LOWER EXTRM W/O C [id number] 18:02:00 [facility] : 1945 Sex: M Name: DARIEN HUYNH [facility] : 1945 Age/S: 74 / M [address] [place] [address] Unit #: [id number] Loc: [place] [address] Phys: Jonathan Sheikh SOLAR PHOTOVOLTAIC INSTALLER Acct: [id number] Dis Date: Status: ADM IN PHONE #: [phone] Exam Date: 05/23/20201727 FAX #: [phone] Reason: right bka, r/o fluid collection EXAMS: CPT CODE: [id number] CT LOWER EXTRM W/[place] [address] CT right femur without contrast. INDICATION: Right [...] iterative reconstruction techniques. DLP: 566 mGy-cm FINDINGS: Mweiz-huk-adha amputation has been performed. A permeative pattern [...] signed by: Dominic Mena M.D. CC: Sekou Sheikh SOLAR PHOTOVOLTAIC INSTALLER Technologist:RT Lindsay(R)(CT) CTDI: DLP: Trnscb Date/Time: 05/23/2020 (1801) Michael.[email or web address] Orig Print D/T: S: 05/23/2020 (1805) PAGE 1 Signed ReportBASIC METABOLIC [id number] 13:38:00 Test Item Value Reference Range Interpretation [...] code = 9.6 mg/dL 8.0-10.5 N CA) [id number] 13:38:00 Test Item Value Reference Range Interpretation Comments PHOSPHOROUS (test code = PHOS) 3.9 MG/DL 2.5-4.9 N [id number] 13:36:00 Test Item Value Reference Range Interpretation Comments ALBUMIN (test code = ALB) 3.20 g/dL 3.4-5.0 L [id number] 13:36:00 Test Item Value Reference Range Interpretation Comments PREALBUMIN (test code = PREALB) 14.3 mg/dL 16.0-40.0 L CBC W/AUTO [id number] 13:15:00 Test Item Value Reference Range Interpretation [...] (test code NO = MDIFF) SED RATE [id number] 08:19:00 Test Item Value Reference Range Interpretation Comments SED RATE BRAYANERGREN (test code = 114 mm/hr 0-15 H SEDW) [id number] 08:09:00 Test Item Value Reference Range Interpretation Comments PREALBUMIN (test code = PREALB) 13.1 mg/dL 16.0-40.0 L C REACTIVE [id number] 08:08:00 Test Item Value Reference Range Interpretation Comments C REACTIVE PROTEIN (test code = 192.0 mg/L <10.0 H CRP) CBC W/AUTO [id number] 07:57:00 Test Item Value Reference Range Interpretation [...] MDIFF) - XR HIP W/PEL UNI 2+V [id number] 18:35:00 [facility] 1945 Sex: M FAX: Sekou Morel [phone] [place]: St: DIS FAX: Dusty Smiley [phone] Name: DARIEN HUYNH [facility] : 1945 Age/S: 74/M [address] [place] [address] Unit #: [id number] Loc: [place] [address] Phys: Dusty Smiley [employer] Acct: [id number] Dis Date: Status: DIS IN PHONE #: [phone] Exam Date: 05/21/20201734 FAX #: [phone] Reason: left hip pain EXAMS: CPT CODE: [id number] XR HIP W/PEL UNI2+[place] [address] 2+ RADIOGRAPHIC VIEWS LEFT HIP INDICATION: left [...] Smiley NP Technologist: RT Jesus(R) Trnscrd Date/Time/By: (1834) : By: Michael.JB33 Orig Print D/T: S: 05/21/2020 (1837) PAGE 1 Signed Report- XR HIP W/PEL UNI 2+V [id number] 18:35:00 [facility] : 1945 Sex: M FAX: Sekou Amezcua [phone] [place]: St: [facility] FAX: Dusty Smiley [phone] Name: DARIEN HUYNH [facility] : 1945 Age/S: 74/M [address] [place] [address] Unit #: [id number] Loc: [place] [address] Phys: Dusty Smiley NP Acct: [id number] Dis Date: Status: ADM IN PHONE #: [phone] Exam Date: 05/21/2020 1735 FAX #: [phone] Reason: left hip pain EXAMS: CPT CODE: [id number] XR HIP W/PEL UNI 2+[place] [address] 2+ RADIOGRAPHIC VIEWS LEFT HIP INDICATION: left hip pain. TECHNIQUE: 2+ radiographicviews left hip COMPARISONS: None. FINDINGS: There is [...] 05/21/2020 (1837) PAGE 1 Signed ReportCBC W/AUTO [id number] 07:47:00 Test Item Value Reference Range Interpretation [...] (test code NO = MDIFF) BASIC METABOLIC [id number] 07:40:00 Test Item Value Reference Range Interpretation [...] 9.1 mg/dL 8.0-10.5 N CA) COMPREHENSIVE METABOLIC [id number] 06:03:00 Test Item Value Reference Range Interpretation [...] TOTAL (test code = ALKP) CBC W/AUTO [id number] 05:49:00 Test Item Value Reference Range Interpretation [...] (test code NO = MDIFF) BASIC METABOLIC [id number] 08:43:00 Test Item Value Reference Range Interpretation [...] code = 9.0 mg/dL 8.0-10.5 N CA) [id number] 08:43:00 Test Item Value Reference Range Interpretation Comments PHOSPHOROUS (test code = PHOS) 4.7 MG/DL 2.5-4.9 N CBC W/AUTO [id number] 08:29:00 Test Item Value Reference Range Interpretation [...] (test code NO = MDIFF) BASIC METABOLIC [id number] 07:42:00 Test Item Value Reference Range Interpretation [...] 9.5 mg/dL 8.0-10.5 N CA) BASIC METABOLIC [id number] 09:55:00 Test Item Value Reference Range Interpretation [...] code = 8.7 mg/dL 8.0-10.5 N CA) [id number] 09:55:00 Test Item Value Reference Range Interpretation Comments PHOSPHOROUS (test code = PHOS) 5.2 MG/DL 2.5-4.9 H [id number] 09:55:00 Test Item Value Reference Range Interpretation Comments MAGNESIUM (test code = MAG) 1.89 mg/dL 1.80-2.40 N CBC W/AUTO [id number] 09:28:00 Test Item Value Reference Range Interpretation [...] REQUIRED (test code = MDIFF) CBC W/AUTO [id number] 09:28:00 Test Item Value Reference Range Interpretation [...] (test code NO = MDIFF) ACUTE HEPATITIS [id number] 13:08:00 Test Item Value Reference Range Interpretation [...] COMMENTS: At start of hemodialysisAB HEPATITIS B [id number] 13:08:00 Test Item Value Reference Range Interpretation Comments AB HEPATITIS B 22.1 mIU/mL See_Comment Status of Im munity SURFACE (test code = Anti-HB s Level HBSAB) --- I nconsis tent with Immun ity 0.0 - 9.9Consistent with Immunity >9.9Pe rformed At: HD [facility] [id number] [place], [place] [id number] Salomón Peralta MD Ph:[phone] [Automated mess age] The system [employer] generated this result transmitted ref erence range: Immunity >9.9. The reference r za was not used to interpret this result as normal/abnor mal. COMMENTS: At start of hemodialysisACUTE HEPATITIS [id number] 10:00:00 Test Item Value Reference Range Interpretation [...] COMMENTS: At start of hemodialysisAB HEPATITIS B [id number] 10:00:00 Test Item Value Reference Range Interpretation Comments AB HEPATITIS B SURFACE (test code = HBSAB) COMMENTS: At start of hemodialysisBASIC METABOLIC [id number] 09:23:00 Test Item Value Reference Range Interpretation [...] 8.5 mg/dL 8.0-10.5 N CA) CBC W/AUTO [id number] 09:16:00 Test Item Value Reference Range Interpretation [...] (test code NO = MDIFF) RENAL FUNCTION [id number] 06:58:00 Test Item Value Reference Range Interpretation [...] code = 3.0 MG/DL 2.5-4.9 N PHOS) [id number] 06:58:00 Test Item Value Reference Range Interpretation Comments MAGNESIUM (test code = MAG) 1.81 mg/dL 1.80-2.40 N CBC W/AUTO [id number] 06:49:00 Test Item Value Reference Range Interpretation [...] (test code NO = MDIFF) CBC W/AUTO [id number] 06:45:00 Test Item Value Reference Range Interpretation [...] code = MDIFF) - CT HEAD/BRAIN W/O [id number] 04:29:00 [facility] : 1945 Sex: M Name: DARIEN HUYNH 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 [...] present. PARANASAL SINUSES: The visualized portions of theparanasal sinuses are clear. PAGE 1 Signed Report (CONTINUED) Name: DARIEN HUYNH [facility] [place] : 1945 Age/S: 74 / M [address] [place] [address] Blvd Unit #: [id number] Loc: [place] [address] Phys: Fausto Espino MD Acct: [id number] Dis Date: Status: DIS IN PHONE #: [phone] Exam Date: 05/13/2020413 FAX #: [phone] Reason: TRAUMA EXAMS: CPT CODE: [id number] CT HEAD/BRAIN W/O CONT 46694 <Continued> MASTOIDS: Clear. ORBITS: The globes are [...] ischemic change. Stable acute left parafalcine subdural he matoma extending into the left tentorium. Minimal left to right midline shift is stable. SL: TPAINTER-H at 0429 Reported and signed by: Anoop Mays M.D. CC: Fausto Espino MD; Bennett Farnsworth MD Technologist:Yasir Crain RT(R)(CT); Edgar CTDI: DLP: Trnscb Date/Time: 05/13/2020 (428) [email or web address] Orig Print D/T: S: 05/13/2020(0432) PAGE 2 Signed Report- CT HEAD/BRAIN W/O [id number] 04:29:00 [facility] : 1945 Sex: M Name: DARIEN HUYNH [facility] [place] : 1945 Age/S: 74 / M [address] [place] [address] Unit #: [id number] Loc:[place] [address] Phys: Fausto Espino MD Acct: [id number] Dis Date: Status: ADM IN PHONE #: [phone] Exam Date: 05/13/2020 0414 FAX #: [phone] Reason: TRAUMA EXAMS: CPT CODE: [id number] CT HEAD/BRAIN W/O CONT 54781 STUDY: - CT HEAD/BRAIN W/O CONT 05/13/2020 5:00 AM Ordering Physician: Fausto Espino MD Patient Name: DARIEN HUYNH MR: [id number] : 1945; Age: 74 years y/o Male Clinical Indication: Head trauma follow-up subdural hematoma. Comparison: CT brain 05/12/2020 at 2213 hours TECHNIQUE: Multiple contiguous transaxial noncontrast CT images were obtained through the head. Coronal and sag ittal reformatted images were prepared. CT imaging performed [...] 1 Signed Report (CONTINUED) Name: DARIEN HUYNH [facility] : 1945 Age/S: 74 / M [address] [place] [address] Blvd Unit #: [id number] Loc: [place] [address] Phys: Fausto Espino MD Acct: [id number] Dis Date: Status: ADM IN PHONE #: [phone] Exam Date: 05/13/2020413 FAX #: [phone] Reason: TRAUMA EXAMS: CPT CODE: [id number] CT HEAD/BRAIN W/O CONT 04403 <Continued> MASTOIDS: Clear. ORBITS: The globes are [...] (428) [email or web address] Orig Print D/T: S: 05/13/2020 (4893) PAGE 2 Signed ReportCOVID 19 Asymptomatic IH [id number] 03:09:00 Test Item Value Reference Range Interpretation [...] high or waivedcomplexit y tests. BASIC METABOLIC [id number] 02:14:00 Test Item Value Reference Range Interpretation [...] 8.5 mg/dL 8.0-10.5 N CA) HEPATIC FUNCTION [id number] 02:14:00 Test Item Value Reference Range Interpretation [...] 112 IUnit/L 20-125 N code = ALKP) [id number] 02:14:00 Test Item Value Reference Range Interpretation Comments LIPASE (test code = LIP) 185 U/L 13-57 H [id number] 02:14:00 Test Item Value Reference Range Interpretation [...] or Legal orEmployment ev aluation purposes. PROTHROMBIN [id number] 02:11:00 Test Item Value Reference Range Interpretation [...] (to prevent recurrent infar ct). THROMBOPLASTIN TIME [id number] 02:11:00 Test Item Value Reference Range Interpretation Comments THROMBOPLASTIN TIME 31.8 Seconds 25.0-39.5 N Therape utic Range: PARTIAL (test code = 50.4 - 88.3 Seconds PTT) Effective 05/27/2018 PROTHROMBIN [id number] 02:10:00 Test Item Value Reference Range Interpretation [...] (to prevent recurrent infar ct). THROMBOPLASTIN TIME [id number] 02:10:00 Test Item Value Reference Range Interpretation Comments THROMBOPLASTIN TIME PARTIAL (test Seconds 25.0-39.5 code = PTT) CBC W/AUTO [id number] 01:59:00 Test Item Value Reference Range Interpretation [...] NO = MDIFF) - CT HEAD/BRAIN W/O [id number] 23:15:00 [facility] 1945 Sex: M Name: DARIEN HUYNH [facility] : 1945 Age/S: 74 / M [address] [place] Unit #: [id number] Loc: [place] [address] Phys: Undefined Provider Acct: [id number] Dis Date: Status: REG REF PHONE #: [phone] Exam Date: 05/12/2020 7884 FAX #: Reason: s/p fall Report Has Been Amended EXAMS: CPT: [id number] CT HEAD/BRAIN W/O CONT 93921 Addendum - 05/12/2020 SIGNED 05/12/2020 ADDENDUM: [id number] CT/CTHDBRWO Findings were notified to vat house supervisor Huyen at 11:15 PM on 05/12/2020. at 2315 Reported and signed by: Kaela Lindsey M.D. Transcribed: 05/12/2020 (9361) Michael.[email or web address] Report EXAM: - CT HEAD/BRAIN W/O [...] vessel ischemic disease. EXTRA AXIAL SPACE: There joy hyperdense left parafalcine subdural hematoma which extends from the mid to posterior aspect of the interhemispheric fissure. The hematoma measures up to 7 mm in thickness. There is mild local mass effect on the medial left PAGE 1 Signed Report (CONTINUED) Name: DARIEN HUYNH : 1945 Age/S: 74 / M [address] [facility] Unit #: [id number] Loc: [place] [address] Phys: Undefined Provider Acct: [id number] Dis Date: Status: REG REF PHONE #: [phone] Exam Date: 05/12/20200 FAX#: Reason: s/p fall Report Has Been Amended EXAMS: CPT: [id number] CT HEAD/BRAIN W/O CONT 15488 <Continued> frontoparietal lobe without midline shift or [...] (2250) [email or web address] Orig Print D/T: S: 05/12/2020 (4450) PAGE 2 Signed Report- CT HEAD/BRAIN W/O CONT 2020-05-12 23:15:00 [facility] : 1945 Sex: M [facility] 1945 Age/S: 74 / M [address] [facility] Unit #: [id number] Loc: [place] [address] Phys: Undefined Provider Acct: [id number] Dis Date: Status: REG REF PHONE #: [phone] Exam Date: 05/12/20203 FAX #: Reason: s/p fall Report Has Been Amended EXAMS: CPT: [id number] CT HEAD/BRAIN W/O CONT 99353 Addendum - 05/12/2020 SIGNED 05/12/2020 ADDENDUM: [id number] CT/CTHDBRWO Findings were notified to vat house supervisor Huyen at 11:15 PM on 05/12/2020. at 5572 Reported and signed by: Kaela Lindsey M.D. Transcribed: 05/12/2020 (2318) [email or web address] Report EXAM: - CT HEAD/BRAIN W/O CONT LOCATION: H61 CLINICAL HISTORY/INDICATION: Fall with pain TECHNIQUE: Helical CT acquisition of the head was obtained without IV contrast. Images were reconstructed in the axial, sagittal and coronal planes. This examination was performed according to our departmental dose optimization program, which includes automated exposure contr ol, adjustment of the mA and/or kV according to patient size, and/or use of iterative reconstructiontechnique. COMPARISON: None FINDINGS: SULCI AND VENTRICLES: Appropriate for age. No hydrocephalus. PARENCHYMA: No CT evidence of acute large territorial infarct, parenchymal hemorrhage or mass effect. B eginning to confluent hypodensities in the periventricular and deep cerebral white matter are nonspecific, but are likely moderate chronic small vessel ischemic disease. EXTRA AXIAL SPACE: There is a hyperdense left parafalcine subdural hematoma which extends from the mid to posterior aspect of the int erhemispheric fissure. The hematoma measures up to 7 mm in thickness. There is mild local mass effect on the medial left PAGE 1 Signed Report (CONTINUED) Name: DARIEN HUYNH : 1945 Age/S: 74 / M [address] [address] [place] Unit #: [id number] Loc: [place] [address] Phys: Undefined ProviderAcct: [id number] Dis Date: Status: REG REF PHONE #: [phone] Exam Date: 05/12/2020 6045 FAX #:Reason: s/p fall Report Has Been Amended EXAMS: CPT: [id number] CT HEAD/BRAIN W/O CONT 12965 (Continued) frontoparietal lobe without midline shift or transtentorial herniation. SCALP: No abnormalities. BONES: No skull fractures or aggressive calvarial lesions. PARTIALLY IMAGED FACE /PARANASAL SIN USES: Paranasal sinuses are clear. MASTOID AIR CELLS: [...] PAGE 2 Signed Report- CT HEAD/BRAIN W/O [id number] 22:51:00[facility] 1945 Sex: M Name: DARIEN HUYNH [facility] : 1945 Age/S: 74 / M [address] [address] [place] Unit #: [id number] Loc: [place] [address] Phys: Undefined Provider Acct: [id number] Dis Date: Status: REG REF PHONE #: [phone] Exam Date: 05/12/20207 FAX #: Reason: s/p fall EXAMS: CPT: [id number] CT HEAD/BRAIN W/O CONT 06325 EXAM: - CT HEAD/BRAIN W/O CONT LOCATION: H61 CLINICAL HISTORY/INDICATION: Fall with pain TECHNIQUE: Helical CT acquisition of the head was obtained without IV contrast. Images were reconstructed inthe axial, sagittal and coronal planes. This examination [...] lesions. PARTIALLY IMAGED FACE /PARANASAL SINUSES: Paranasal sinusesare clear. MASTOID AIR CELLS: No effusion. IMPRESSION: 1. Acute 7 mm left parafalcine subdural hematoma without midline shift or transtentorial herniation. 2. Moderate chronic small vessel ischemic disease. PAGE 1 Signed Report (CONTINUED) Name: DARIEN HUYNH [facility] : 1945 Age/S: 74 / M [address] [address] [place] Unit #: [id number] Loc: [place] [address] Phys: Undefined Provider Acct: [id number] Dis Date: Status: REG REF PHONE #: [phone] Exam Date: 05/12/20202213 FAX #: Reason: s/p fall EXAMS: CPT: [id number] CT HEAD/BRAIN W/O CONT 38190 (Continued) at 225 Reported and signed by: Kaela Lindsey M.D. CC: Technologist:RT Sharon(Artie)(CT); ... CTDI: DLP: Trnscb Date/Time: 05/12/2020 (2250) t.[email or web address].[email or web address] Orig Print D/T:S: 05/12/2020 (2254) PAGE 2 Signed Report- CT C-SPINE W/O CONT 2020-05-12 22:40:00 [facility] 1945 Sex: M Name: DARIEN HUYNH : 1945 Age/S: 74 / M [address] [address] [place] Unit #: [id number] Loc: [place] [address] Phys: Undefined Provider Acct: [id number] Dis Date: Status: REG REF PHONE #: [phone] Exam Date: 05/12/2020 6780 FAX #: Reason: s/p fall EXAMS: CPT: [id number] CT C-SPINE W/O CONT 61088IPZW: - CT C- SPINE W/O CONT LOCATION: 1 CLINICAL HISTORY/INDICATION: Fall with pain. COMPARISON: None [...] HUYNH : 1945 Age/S: 74 / M [address] [address] [place] Unit #: [id number] Loc: [place] [address] Phys: Undefined Provider Acct: [id number] Dis Date: Status: REG REF PHONE #: [phone] Exam Date: 05/12/20202213 FAX #: Reason: s/p fall EXAMS: CPT: [id number] CT C-SPINE W/O CONT 76448 <Continued> spinal canal stenosis. C3-C4: Diffuse disc osteophyte complex and bilateral uncovertebral arthrosis results in severe bilateral neural foraminal stenosis but no spinal canal stenosis. Moderate bilateral facet arthrosis. C4-C5: Grade 1 anterolisthesis. Partial ankylosis of the vertebral bodies. Severe left and moderate right facet arthrosis/hypertrophy. Diffuse disc osteophyte complex and facetarthrosis results in severe bilateral neural foraminal stenosis, [...] Reported and signed by: Kaela Lindsey M.D. CC:Technologist:RT Sharon(Artie)(CT); ... CTDI: DLP: Trnscb Date/Time: 05/12/2020 (2239) [id number] Print D/T: S: 05/12/2020 (0035) PAGE 2 Signed Report- CT C-SPINE W/O [id number] 22:40:00 [facility] 1945 Sex: M Name: DARIEN HUYNH [facility] : 1945 Age/S: 74 / M [address] [address] [place] Unit #: [id number] Loc: [place] [address] Phys: Undefined Provider Acct: [id number] Dis Date: Status: REG REF PHONE #: [phone] Exam Date: 05/12/2020 7540 FAX #: Reason: s/p fall EXAMS: CPT: [id number] CT C-SPINE W/O CONT 62346BZJI: - CT C-SPINE W/O CONT LOCATION: H61 CLINICAL HISTORY/INDICATION: Fall with pain. COMPARISON: None TECHNIQUE: Axial CT images were obtained of the cervical spine withoutintravenous contrast administration. These were reviewed in both soft tissue and bone algorithms. Coronal and sagittal reformatswere obtained from the axial data. This examination was performed according to our departmental dose optimization program, which includes automated exposure control, adjustment of the mA and/or kV according to patient size, and/or use of iterative reconstruction technique. FINDINGS: ALIGNMENT: Loss ofnormal cervical lordosis. Grade 1 degenerative anterolisthesis at C4-C5. 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 No craniocervical dissociation or fracture. VERTEBRAL BODIES: No compression fractures. FRACTURES: No acute fractures. REGIONAL SOFT TISSUES: Prevertebral and posterior paraspinal soft tissues are unremarkable. SPINAL CANAL: No gross epidural hematoma or mass. UPPER CHEST:Lung apices are clear.DEGENERATIVE CHANGES:Large bridging anterior endplate osteophytes from C2 to C4. Moderate disc height loss at C3-C4. Severe disc height loss at C4-C5, C5-C6, C6-C7 and C7-T1. Severe endplate sclerosisand subchondral cystic changes at C5-C6. C2-C3: Diffuse disc osteophyte complex, bilateral uncovertebral arthrosis and severe right facet arthrosis result in moderate right neural foraminal stenosis, mild left neural foraminal stenosis, but no PAGE 1 Signed Report (CONTINUED) Name: DARIEN HUYNH : 1945 Age/S: 74 / M [address] [address] [place] Unit #: [id number] Loc: [place] [address] Phys: Undefined Provider Acct: [id number] Dis Date: Status: REG REF PHONE #: [phone] Exam Date: 05/12/20202213 FAX #: Reason: s/p fall EXAMS: CPT: [id number] CT C-SPINE W/O CONT 14141 (Continued) spinal canal stenosis. C3- C4: Diffuse disc osteophyte complex and bilateral uncovertebral arthrosis resul ts in severe bilateral neural foraminal stenosis but [...] bilateral neural foraminal stenosis, but no spinal can al stenosis. C6-C7: Left central disc osteophyte complex results in mild central spinal canal stenosis. Bilateral uncovertebral arthrosis results in severe bilateral neural foraminal stenosis. C7-T1: Bilateral uncovertebral arthrosis and severe right facet arthrosis contributes to severe bilateral neural foraminal stenosis but no spinal canal stenosis. IMPRESSION: 1. No acute fracture or subluxation.2. Severe multilevel facet arthropathy, disc degeneration and uncovertebral arthrosis results in severe multilevel foraminal stenosis, but no high-grade spinal canal stenosis. at 2240 Reported and signed by: Kaela Lindsey M.D. CC: Technologist:RT Sharon(R)(CT); ... CTDI: DLP: Trnscb Date/Time: 05/12/2020 (2239) [email or web address] Orig Print D/T: S: 05/12/2020 (9638) PAGE 2 Signed ReportAFB [id number] 05:13:59 Test Item Value Reference Range Interpretation Comments AFB culture isolate No growth after 6 (test code = 543-9) weeks of incubation. [facility] [id number] 06:15:49 Test Item Value Reference Range Interpretation Comments Fungus culture isolate No growth after 4 (test code = 1441) weeks of incubation. [facility] [place] < 1 [id number] 21:39:42EXAMINATION: OR FL < 1 HOUR C-arm [...] issued by the physician performing theprocedure.[id number] [id number] 14:47:42 Test Item Value Reference Range Interpretation Comments Anaerobic culture No anaerobic organisms isolate (test code = isolated. 552) [facility] HospitalAFB [id number] 07:48:01 Test Item Value Reference Range Interpretation Comments AFB stain (test code = No acid fast bacilli 676-7) (AFB) seen. [facility] [id number] 07:48:01 Test Item Value Reference Range Interpretation Comments Aerobic culture isolate No growth after 3 (test code = 498) days. [facility] [id number] 07:48:01 Test Item Value Reference Range Interpretation Comments Fungus smear (test code = No fungi observed. 1443) [facility] HospitalGram [id number] 07:48:01Gram stain isolateFew WBC'sNo organisms seen Comment: Specimen InformationSpecimen Source: TissueSpecimen Site: Femur: Right femoral canal tissue [facility] [id number] 21:19:54 Test Item Value Reference Range Interpretation Comments Case number (test code = [id number]) Surgical pathology See link below for report (test code = PDF Lab Report 2255) Result status (test code This is Final Report = [id number]) for [id number] [facility] carotid [id number] 00:39:00 [facility] Carotid Artery Duplex Report [address] [place] [address] For quality management coordinator purposes, the categorization of the degree of the stenosis of this exam is based on criteria described in the IAC carotid stenosis grading white paper( www.intersocietal.org/Vascular) and Shagufta Andrews., Art ArmendarizB., et al. Carotid artery stenosis: maya-scale and Doppler US diagnosis--Society of Radiologists in Ultrasound Consensus Conference. Radiology. 2003 Dec; 229(2):340-6. Pat.Name: DARIEN HUYNH Pat.ID: [id number] .Date: 03/23/2020 Refer.MD: BEAR MARIEE MD Exam Time: 11:25:00 AM Study Type:Carotid Height: 68in Weight: 186lb BSA: 1.98 m2 Age: 9 1945,74Y Sex: MALE Sonogrphr: NOEMI Chapman Pat. Stat.:Inpatient Room: [address] Vol: BE, CPT - 4: 83348 Echo Event ID:[id number] Order ID: [id number] Reason for Study:Cervical bruit, no prior carotidartery [...] [facility] Carotid Artery Duplex Report [address] [place] [address] For quality management coordinator purposes, the categorization of the degree of the stenosis of this exam is based on criteria described in the IAC carotid stenosis grading white paper( www.intersocietal.org/Vascular) and Shagufta Andrews., Ritu Armendariz., et al. Carotid artery stenosis: maya-scale and Doppler US diagnosis--Society of Radiologists in Ultrasound Consensus Conference. Radiology. 2003 Nov; 229(2):340-6. Pat.Name: DARIEN HUYNH Pat.ID: [id number] .Date: 03/23/2020 Refer.MD: BEAR MARIEE MD Exam Time: 11:25:00 AM Study Type:Carotid Height: 68in Weight: 186lb BSA: 1.98 m2 Age: 9 1945,74Y Sex: MALE Sonogrphr: NOEMI Chapman Pat. Stat.:Inpatient Room: [address] Vol: BE, CPT - 4: 10744 Echo Event ID:[id number] Order ID: [id number] Reason for Study:Cervical bruit, no prior carotid [...] Subclavian PSV 312 cm/s Subclavian EDV 66.6 cm /sRight SCA Prox SCA Prox PSV 172 cm/s SCA Prox EDV 22 cm/sLeft SCA Prox SCA Prox PSV 312 cm/s SCA Prox EDV 66 cm/sRight ICA/CCA Ratio ICA/CCA PSV 1.67 Left ICA/CCA Ratio ICA/CCA PSV 1.14 Signed 03/23/2020 06:39 PMAngel Liang MD, [facility] ReligiousAncor[facility] Psych[facility] HospitalXshmfxswTsgwsm7682-97-66 19:25:28Tejal Simpson 03/22/2020 1:45 PMAirway Date/Time: 03/22/2020 1:00 PM Location: OR Performed by: FIELD TRAFFIC INVESTIGATOR/A AAnesthesiologist: Tahmina Mccloud/FIELD TRAFFIC INVESTIGATOR/AA: Angeles Simpsonhorized by: Liu Mccloud Urgency: ElectiveDifficult [...] more First attemptusing Sheikh 2 blade by FIELD TRAFFIC INVESTIGATOR. Second attempt with MD with MAC 3. Grade 3b view, secondary to neck stiffness.Grade 1 view with glidescope. ETT passed atraumatically.Transthoracic Echocardiogram Complete, (w Contrast, Strain and 3D if needed)2020-03-19 20:20:00 Echocardiography Report [id number]Name: DARIEN HUYNH [facility].ID: [id number] .Date: 03/19/2020 Refer.MD: CLINT KING DO Exam Time: 11:43:00 AM Study Type:Routine Echo Height: 68in Weight: 185.61lb BSA: 1.98 m2 Age: 9 1945,74Y Sex: MALE BP: 110/57 HR: 70 bpm Sonogrphr: NILSON Conde Pat. Stat.:Inpatient Room: [facility] Study Status:Final Echo Event ID:[id number] Order ID: [id number] Reason for Study:Perioperative function eval without cardiac evidenceHistory / Clinical:Hypertension, Heart DiseaseProcedures: 2D Echo, Colorflow Doppler, 3D Echo, Strain, Portable,Intravenous Optison ContrastRace: C SUMMARY:- There is mild concentric LV hypertrophy. LV EF is normal. Overallwall motion is normal.Diastolic dysfunction Grade I (Mild): Impaired relaxation with normalLV filling pressures. FINDINGS: LV: LV size is normal. There is mild concentric LV hypertrophy. LV EF is normal. Overall wall motion is normal. Estimated EF is 65-69%RV: RV size is normal. RV systolic function is normal.LA: LA volume is mildlyenlarged.RA: RA volume is mildly enlarged.AO: Aortic root diameter is normal.JUNE: No pericardial effusion.AV: Mild thickening and calcification of AV leaflets.MV: Mild mitral annular calcification.PV:No structural PV abnormalities noted.TV: No structural TV abnormalities noted.Bustamante: Diastolic dysfunction Grade I (Mild): Impaired relaxation with normal LV filling pressures.Other: Insufficient TR jet to estimate PA systolic pressure. MEASUREMENTS: 2DParasternal [place] Ao An 2.2 cm LVPWd 1.3 cm [...] 52.4 ml/m2 LVOT CI 3.7 l/m/m2 Signed 102:20 PMStepshameka Sarabia M.D.Interface, Radiology Results In - 03/19/2020 2:20 PM CSTFormatting ofthis note might be different from the original. Echocardiography Report [id number] [place] [address] Pat.Name: DAREIN HUYNH Pat.ID: [id number] .Date: 03/19/2020 Refer.MD: CLINT KING DO Exam Time: 11:43:00 AM Study Type:Routine Echo Height: 68in Weight: 185.61lb BSA: 1.98 m2 Age: 9 1945,74Y Sex: MALE BP: 110/57 HR: 70 bpm Sonogrphr: NILSON Conde Pat. Stat.:Inpatient Room: [facility] Study Status:Final Echo Event ID:[id number] Order ID: [id number] Reason for Study:Perioperative function eval without cardiac evidenceHistory / Clinical:Hypertension, Heart DiseaseProcedures: 2D Echo, Colorflow Doppler, 3D Echo, Strain, Portable,Intravenous Optison ContrastRace: C SUMMARY: There is mild concentric LV hypertrophy. LV EF is normal. Overallwall motion is normal.Diastolic dysfunction Grade I (Mild): Impaired relaxation with normalLV filling pressures. FINDING S: LV: LV size is normal. There is mild concentric LV hypertrophy. LV EF is normal. Overall wall motion is normal. Estimated EF is 65-69%RV: RV size is normal. RV systolic function is normal.LA: LA volume is mildly enlarged.RA: RA volume is mildly enlarged.AO: Aorticroot diameter is normal.JUNE: No pericardial effusion.AV: Mild thickening and calcification of AV leaflets.MV: Mild mitral annular calcification.PV: No structural PV abnormalities noted.TV: No structural TV abnormalities noted.Bustamante: Diastolic dysfunction Grade I (Mild): Impaired relaxation with normalLV filling pressures.Other: Insufficient TR jet to estimate PA systolic pressure. MEASUREMENTS: 2DParasternal [place] Ao An 2.2 cm LVPWd 1.3 cm [...] 25 cm2 (8.3-19.5)LVOT LVOT Area 3.9 cm2 DOPPLERLVOTStroke Vol & Cardiac Out LVOT TVI 26.6 cm HR 71 bpm LVOT LVOT SV 103.8 ml LVOT CO 7.4 l/min SVi 52.4 ml/m2 LVOT CI 3.7 l/m/m2 Signed 03/19/2020 02:20 Dodei Sarabia M.D.[facility] Lower Extremity Wo Contrast Gzcnh0826-86-10 13:07:30EXAMINATION: MRI LOWER EXTREMITY WO CONTRAST RIGHT [...] cortex, consistent with cellulitis involving the tibia surroun ding the prosthesis and at the distal tip [...] medially, beyond the cortex of the tibia.[id number] THIGH WO CONTRAST XOBTB0456-46-89 12:29:55EXAMINATION: MRI KNEE WO CONTRAST RIGHT, MRI [...] x 2.6 cm soft tissue fluid collection l ocated anterior to the proximal tibial shaft, this [...] with the fluid surrounding the tibial stem. [id number]-[id number] Interface, Radiology Results - 03/19/2020 6:33 AM [...] with the fluid surro unding the tibial stem.HMRM-QHTHJW6Dihkpqpuw [facility] Knee Right Wo Contrast 2020-03-19 12:29:55EXAMINATION: MRI KNEE WO CONTRAST RIGHT, MRI [...] with the fluid surrounding the tibial stem. [facility]-MJDAUZ7Lk Interface, Radiology Results Incoming - 03/19/2020 6:33 [...] communicate with the fluid surrounding the tibial stem.[facility]-SVLPUF3Uhxbvufdv HospitalUrine xggrnfh8918-34-96 23:38:48 Test Item Value Reference Range Interpretation Comments Urine culture (test code = SEE COMMENT [id number]) [facility] 2 Vw Pajtv8810-23-10 23:14:12EXAMINATION: XR KNEE 1 OR 2 VW RIGHT CLINICAL HISTORY: PAin and swelling COMPARISON: None IMPRESSION: There is a large zone of lucency around the stems of the femoral and tibial components of the totalknee replacement, consistent with loosening. Infection cannot be excluded. There is a joint effusionpresent. There is no acute fracture or dislocation. There are vascular calcifications. [facility]-[id number] Interface, Radiology Results Incoming - 03/18/2020 5:17 [...] or dislocation. There are vascular calcifications.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 Infection cannot be excluded. Bones are osteopenic. No definite acute fracture is seen. [id number] Interface, Radiology Results 03/18/2020 5:09 PM CST EXAMINATION: XR TIBIA FIBULA 2 VW RIGHTCLINICAL HISTORY: L leg cellulitisCOMPARISON: NoneIMPRESSION:There is evidence of loosening of tibial component of kneeprosthesis, with large zone of lucency around the stem. Infection cannot be excluded. Bones are osteopenic. No definite acute fracture is seen.[facility]-[id number] [facility] P5824-27-04 02:22:00 Test Item Value Reference Range Interpretation Comments TROPONIN I (test <0.012 See_Comment [Automated code = 4591835177) message] The system which generated this result [...] ? Lab Interpretation Normal (test code = 02946-5) [facility] CenterTROPONIN [id number] 02:20:00 Test Item Value Reference Range Interpretation Comments TROPONIN I (test <0.012 See_Comment [Automated code = 4205960651) message] The system which generated this result [...] ? Lab Interpretation Normal (test code = 53175-6) [facility] CenterUR[facility]YSIS2020-10-01 00:21:00 Test Item Value Reference Range Interpretation Comments APPEARANCE (test code = Clear Clear 8521269979) COLOR (test code = Yellow Yellow 0156124909) PH (test code = 4.8-8.0 1869170058) SP GRAVITY (test code = 1.003-1.030 6369191596) GLU U QUAL (test code = Normal Normal 8658021152) BLOOD (test code = Negative Negative 0686441469) KETONES (test code = Negative Negative 5406624321) PROTEIN (test code = 100 mg/dL Negative A 2887-8) UROBILIN (test code = Normal Normal 4488998699) BILIRUBIN (test code = Negative Negative 9198616094) NITRITE (test code = Negative Negative 6461509306) LEUK AJ (test code = Negative Negative 4011076098) RBC/HPF (test code = See_Comment H [Autom ated message] 6067252214) The system [employer] generated this result transmit amado reference range : 0 - 3 HPF. The refe rence range was not u sed to interpret th is result as normal/abnormal . WBC/HPF (test code = <1 See_Comment [Autom ated message] 8840402105) The system [employer] generated this result transmit amado reference range : 0 - 5 HPF. The refe rence range was not u sed to interpret th is result as normal/abnormal . BACTERIA (test code = Few Negative A 7370500268) MUCOUS (test code = Slight Negative LPF A 6840379824) SQ EPITH (test code = <1 HPF 5891292416) Lab Interpretation (test Abnormal code = 80344-5) [facility]2020-10-01 00:21:00 Test Item Value Reference Range Interpretation Comments APPEARANCE (test code = Clear Clear 4101774099) COLOR (test code = Yellow Yellow 5073555101) PH (test code = 4.8-8.0 2446959003) SP GRAVITY (test code = 1.003-1.030 4094480246) GLU U QUAL (test code = Normal Normal 4757932985) BLOOD (test code = Negative Negative 0230262982) KETONES (test code = Negative Negative 6867187100) PROTEIN (test code = 100 mg/dL Negative A 2887-8) UROBILIN (test code = Normal Normal 4090741815) BILIRUBIN (test code = Negative Negative 6559288484) NITRITE (test code = Negative Negative 9411038796) LEUK AJ (test code = Negative Negative 0347976622) RBC/HPF (test code = See_Comment H [Autom ated message] 7492539769) The system [employer] generated this result transmit amado reference range : 0 - 3 HPF. The refe rence range was not u sed to interpret th is result as normal/abnormal . WBC/HPF (test code = <1 See_Comment [Autom ated message] 8631015201) The system [employer] generated this result transmit amado reference range : 0 - 5 HPF. The refe rence range was not u sed to interpret th is result as normal/abnormal . BACTERIA (test code = Few Negative A 9130861636) MUCOUS (test code = Slight Negative LPF A 2559608974) SQ EPITH (test code = <1 HPF 8297115164) Lab Interpretation (test Abnormal code = 23020-2) [facility]XR CHEST 1 [id number] 23:24:26 No acute cardiopulmonary abnormality. Preliminary Report [...] reviewed this study and agree with theabove report.[facility] CenterXR CHEST 1 [id number] 23:24:26 No acute cardiopulmonary abnormality. Preliminary Report [...] reviewed this study and agree with theabove report.[facility] COMP. METABOLIC PANEL ([id number])2019-11-11 23:16:00 Test Item Value Reference Range Interpretation Comments NA (test code = 137 mmol/L 135-145 1405014874) K (test code = 4.0 mmol/L 3.5-5 4588127752) CL (test code = 94 mmol/L 98-108 L 0614303580) CO2 TOTAL (test code = 29 mmol/L 23-31 6412135841) AGAP (test code = 2-16 0125697444) BUN (test code = 63 mg/dL 7-23 H 7727453542) GLUCOSE (test code = 142 mg/dL 70-110 H 1996029828) CREATININE (test code = 5.82 mg/dL 0.6-1.25 H 4511814059) TOTAL BILI (test code = 0.4 mg/dL 0.1-1.4 6056833722) CALCIUM (test code = 9.8 mg/dL 8.6-10.6 4560509619) T PROTEIN (test code = 7.5 g/dL 6.3-8.2 0053909456) ALBUMIN (test code = 4.2 g/dL 3.5-5 6341749247) ALK PHOS (test code = 100 U/L 34-122 1478190644) ALTv (test code = 14 U/L 5-50 1742-6) AST(SGOT) (test code = 27 U/L 13-40 6212350259) eGFR Calculation mL/min/1.73m2 (Non-) (test code = 3917275295) eGFR Calculation mL/min/1.73m2 () (test code = 8286288593) JACQUELYN (test code = JACQUELYN) Association of [...] tests). Lab Interpretation Abnormal (test code = 32352-4) [facility] CenterMAGNESIUM2020-09-30 23:16:00 Test Item Value Reference Range Interpretation Comments MAGNESIUM (test code = 3341010552) 2.5 mg/dL 1.7-2.4 H Lab Interpretation (test code = Abnormal 95652-5) [facility] CenterCOMP. METABOLIC PANEL (81304)2019-11-11 23:16:00 Test Item Value Reference Range Interpretation Comments NA (test code = 137 mmol/L 135-145 8178242331) K (test code = 4.0 mmol/L 3.5-5 9067957867) CL (test code = 94 mmol/L 98-108 L 5619988812) CO2 TOTAL (test code = 29 mmol/L 23-31 8659833162) AGAP (test code = 2-16 8153369985) BUN (test code = 63 mg/dL 7-23 H 5348175859) GLUCOSE (test code = 142 mg/dL 70-110 H 5880904853) CREATININE (test code = 5.82 mg/dL 0.6-1.25 H 0695993557) TOTAL BILI (test code = 0.4 mg/dL 0.1-1.3 3077472488) CALCIUM (test code = 9.8 mg/dL 8.6-10.6 8947064297) T PROTEIN (test code = 7.5 g/dL 6.3-8.2 0875771286) ALBUMIN (test code = 4.2 g/dL 3.5-5 3140201471) ALK PHOS (test code = 100 U/L 34-122 5178095564) ALTv (test code = 14 U/L 5-50 1742-6) AST(SGOT) (test code = 27 U/L 13-40 1200083171) eGFR Calculation mL/min/1.73m2 (Non-) (test code = 8887500997) eGFR Calculation mL/min/1.73m2 () (test code = 3352005658) JACQUELYN (test code = JACQUELYN) Association of [...] tests). Lab Interpretation Abnormal (test code = 05389-6) [facility] CenterMAGNESIUM2020-09-30 23:16:00 Test Item Value Reference Range Interpretation Comments MAGNESIUM (test code = 9532387973) 2.5 mg/dL 1.7-2.4 H Lab Interpretation (test code = Abnormal 99253-1) [facility] CenterCB WITH KHMC4204-38-58 22:53:00 Test Item Value Reference Range Interpretation [...] RDW-SD (test code = 46.1 fL 38.5-51.6 48755-8) RDW-CV (test code = 13.9 % 12.1-15.4 788-0) PLT (test code = See_Comment [Automated 777-3) message] The sy stem which generated this result transmitted reference range : 150 - 328 10*3/ ?L. The reference r za was not used to interpret this result as normal/abnormal . MPV (test code = 8.7 fL 9.8-13 L 83227-1) NRBC/100 WBC (test See_Comment [Automat ed code = 1798108258) message] The system which generated this result transmitted reference range : 0.0 - 10.0 /100 WBCs. The refer ence range was not u sed to interpret th is result as normal/abnormal . NRBC x10^3 (test code <0.01 See_Comment [Auto mated = 3179227111) message] The s ystem which generated this result transmitted reference range : 10*3/?L. The reference range was not used to interpret this result as normal/abnormal . GRAN MAT (NEUT) % 79.0 % (test code = 770-8) IMM GRAN % (test code 0.50 % = 3541649165) LYMPH % (test code = 7.3 % 736-9) MONO % (test code = 9.1 % 5905-5) EOS % (test code = 3.8 % 713-8) BASO % (test code = 0.3 % 706-2) GRAN MAT x10^3(ANC) 6.93 10*3/uL 1.99-6.95 (test code = 8903322096) IMM GRAN x10^3 (test 0.04 10*3/uL 0-0.06 code = 6784747293) LYMPH x10^3 (test code 0.64 10*3/uL 1.09-3.23 L = 731-0) MONO x10^3 (test code 0.80 10*3/uL 0.36-1.02 = 742-7) EOS x10^3 (test code = 0.33 10*3/uL 0.06-0.53 711-2) BASO x10^3 (test code 0.03 10*3/uL 0.01-0.09 = 704-7) Lab Interpretation Abnormal (test code = 05854-2) [facility] WITH POQZ3801-51-96 22:53:00 Test Item Value Reference Range Interpretation [...] RDW-SD (test code = 46.1 fL 38.5-51.6 74037-1) RDW-CV (test code = 13.9 % 12.1-15.4 788-0) PLT (test code = See_Comment [Automated 777-3) message] The sy stem which generated this result transmitted reference range : 150 - 328 10*3/ ?L. The reference r za was not used to interpret this result as normal/abnormal . MPV (test code = 8.7 fL 9.8-13 L 88871-2) NRBC/100 WBC (test See_Comment [Automat ed code = 6128550457) message] The system which generated this result transmitted reference range : 0.0 - 10.0 /100 WBCs. The refer ence range was not u sed to interpret th is result as normal/abnormal . NRBC x10^3 (test code <0.01 See_Comment [Auto mated = 0046740430) message] The s ystem which generated this result transmitted reference range : 10*3/?L. The reference range was not used to interpret this result as normal/abnormal . GRAN MAT (NEUT) % 79.0 % (test code = 770-8) IMM GRAN % (test code 0.50 % = 3125335035) LYMPH % (test code = 7.3 % 736-9) MONO % (test code = 9.1 % 5905-5) EOS % (test code = 3.8 % 713-8) BASO % (test code = 0.3 % 706-2) GRAN MAT x10^3(ANC) 6.93 10*3/uL 1.99-6.95 (test code = 5073526746) IMM GRAN x10^3 (test 0.04 10*3/uL 0-0.06 code = 3408412205) LYMPH x10^3 (test code 0.64 10*3/uL 1.09-3.23 L = 731-0) MONO x10^3 (test code 0.80 10*3/uL 0.36-1.02 = 742-7) EOS x10^3 (test code = 0.33 10*3/uL 0.06-0.53 711-2) BASO x10^3 (test code 0.03 10*3/uL 0.01-0.09 = 704-7) Lab Interpretation Abnormal (test code = 27833-0) [facility] CenterCT, [facility]TREMITY, LOWER WITHOUT CONTRAST, RIGHT [...] neoplasm. Correlation is recommended. Signed: Jorge Kumar MDRfeltonort Verified Date/Time: 01/25/2017 19:47:23 Reading Location: [address] Reading Room RAD, HIP, 2 VIEWS, [...] the right lower abdomen. Signed: Jorge Kumar MDRfeltonort Verified Date/Time: 01/25/2017 19:11:49 [address] Location[address] Hematology 2014-02-18 16:35:0013.9[facility] EoulezrXyldcbwwxb2679-30-31 16:35:0041.4[facility] GwwivtfVwpynwuioe7116-39-72 16:35:75298 K/CMMMemorial AcwbdixCytnxpzy3873-74-86 16:35:00Non ReactiveMemorial FznkfvoWyqrcoiiu9541-95-53 16:35:99489Cemklnmo MjnfinrMcpieelph2084-40-47 16:35:06476Yebtiyzp BjwzllzKtkauxmcm4549-75-88 16:35:0032[facility] DzxneyoRegiopmqw7291-55-33 16:35:86601Kvixcaje Jimmy Knogsemec5173-12-08 16:35:64638 MEQ/LMemorial ZwyyttwOtwftixdj5647-43-29 16:35:004.3 MEQ/LMemorial RbgoobhZihemggjl4354-59-07 16:35:002.5[facility] Jimmy Ohpwdapan4523-19-43 16:35:0029[facility] BtcfdkbGkienehfb5122-01-18 16:35:00 Test Item Value Reference Range Interpretation Comments BUN/CREAT (test code = BUN/CREAT) 08-05 [facility] JtokdqePloppmirr4668-57-63 16:35:004.2[facility]annChemistry 2014-02-18 16:35:008.9[facility] VpyzfcbGvpggexrc9722-15-49 16:35:0036[facility] WxroalpClgjvmzzp2916-91-12 16:35:0025[facility] NclvhbnIpjosuooy4713-22-82 16:35:27885Dcgluoil RvvdghyDvbwbyewg9421-11-41 16:35:001.380[facility] Mqdgebmyt6337-91-02 16:35:002.00[facility] GxsuoylMqqkrcacgr9868-46-14 16:35:00 13.9[facility] ZlwqccvZgbwwbyyhb9501-42-36 16:35:0041.4[facility]annHematology 2014-02-18 16:35:51888 K/CMMMemorial RgjqhptKnknzsle4891-70-76 16:35:00Non ReactiveMemorial JbkvsvmBsapmhlei7340-83-55 16:35:54350Qmhmzemx HermannChemistry 2014-02-18 16:35:46241Duymejlm QwhzssrVelgnczpg1999-27-19 16:35:0032[facility] CkzwvavVbtyoovby9260-55-18 16:35:58894Nzikuaxy UtrfzofAlskmujzw8740-13-22 16:35:81599 MEQ/LMemorial YbmhgaeQconbvhfl4019-77-75 16:35:004.3 MEQ/LMemorial PkpcyuuNrqmicmnc4527-17-61 16:35:002.5[facility] GfnggmqKcsqxlkjb2350-56-80 16:35:0029[facility] ChnbspvMrludjrpx2716-21-08 16:35:00 Test Item Value Reference Range Interpretation Comments BUN/CREAT (test code = BUN/CREAT) 12 08-05 [facility] YjxwyaeSikalkjox6084-40-83 16:35:004.2[facility]annChem[facility] 2014-02-18 16:35:008.9[facility] HomwpdxJefnfdjad8706-76-44 16:35:0036[facility] MowhxsaUmzfessue7831-83-67 16:35:0025[facility] ZnjumlcIvkyjjyma6927-24-45 16:35:68816Ibiwwuan RjrpdavIogtquzay8528-68-10 16:35:001.380[facility] Jimmy Cibsfcscv5436-53-37 16:35:002.00[facility] CxvrnntPkbfxythb8327-30-42 20:45:01504 [facility] DylckhsBfmtkfwdz6603-71-50 20:45:58760Itdqhngu [facility] 2013-01-23 20:45:0023[facility] MhekbdoRkigvenrw6975-98-57 20:45:63298Vlzaxeui XfamhwsKhojdnwov4020-52-84 20:45:63613Pmciboyf CcitoovCzalojvdl3096-84-23 20:45:0023[facility] RxwjvxiFhtakoiwy1954-47-49 20:45:00See Note mg/dLMemorial McvmzmaJlruuccgq6620-88-69 20:45:67281 MEQ/LMemorial UpvhwjbRehhqejyp2529-59-93 20:45:004.5 MEQ/LMemorial TlgckizQqxqcppyz2400-01-33 20:45:001.8[facility] Jimmy Msilksqag9183-39-17 20:45:0030[facility] UerqtfhUkeyiztrz8249-03-96 20:45:00 Test Item Value Reference Range Interpretation Comments BUN/CREAT (test code = BUN/CREAT) 17 1 6-25 [facility] BsbepbhTdcubhquc5294-48-70 20:45:004.2[facility] 2013-01-23 20:45:009.3[facility] CznwrkxIrdblkaqi0801-06-55 20:45:0031[facility] OvuqpsvYtmuqxgyd4720-63-73 20:45:0020[facility] KprttloUwajkfuhf7269-22-26 20:45:91354Uszscbhs VctkrujQvixbzkow2176-18-92 20:45:001.390[facility] Mgxljwtxh6869-99-16 20:45:001.33[facility] XdibswsUpvrdtwwo6087-16-51 20:45:85040 [facility] LeywoqvFbxgbycyx6618-85-20 20:45:14667Mfmwveuc [facility] 2013-01-23 20:45:0023[facility] ScakvysXwpomwbxi6314-70-77 20:45:09528Duhmdsmx FlgeeenPnqtzcwju4333-59-53 20:45:98971Lqxpxpfi ZbitizlZgfuxlmvz5775-87-69 20:45:0023[facility] FssttclHaavpekls2486-43-90 20:45:00See Note mg/dLMemorial DukjbmrFqhbiesxd5451-88-99 20:45:17439 MEQ/LMemorial LtieicsFwhvazxyo5002-03-48 20:45:004.5 MEQ/LMemorial EbgmuvvJjwlicgrc4835-90-92 20:45:001.8[facility] Jimmy Ufhfrniky2919-43-83 20:45:0030[facility] MbcbsvgJxpxykjeb4841-05-33 20:45:00 Test Item Value Reference Range Interpretation Comments BUN/CREAT (test code = BUN/CREAT) 17 1 6-25 [facility] QgkfsyzWyhokjrsb2068-92-40 20:45:004.2[facility]annChem[facility] 2013-01-23 20:45:009.3[facility] PfwsdtoSducmjfvn4782-42-66 20:45:0031[facility] MjlqobuNibhapdef5040-09-18 20:45:0020[facility] PysdgytQnydelzwq8243-93-43 20:45:40706Gxcuyvhf OdouqhfJvmbwobaq2747-29-89 20:45:001.390[facility] Jimmy Dbtoxxrnd7380-82-57 20:45:001.33[facility] SitqqeoIkuscwoma1817-37-90 15:12:571.57 [facility] FlskberWnksuosuh5427-65-23 15:12:571.57[facility]ann[facility] 2012-04-02 15:12:571.57[facility] GhnhpswWrepctgqg3495-51-21 15:12:571.57[facility]"
--- NOTE | 2022-01-22 18:46 | RAD REPORT ---
EXAM DESCRIPTION: RAD - Chest Single View - 01/22/2022 6:27 pm CLINICAL HISTORY: bradycardia COMPARISON: Chest Pa And Lat (2 Views) dated 08/31/2021; Chest Single View dated 07/28/2021; Chest Sin gle View dated 05/16/2021; Chest Single View dated 02/20/2021; Abdomen Pelvis Wo Contrast dated 022 FINDINGS: Lines: None. Lungs: Right basilar airspace disease. Pleural: Right-sided pleural effusion. Cardiac: Cardiomegaly . Mediastinum: Within normal limits. Bones: No acute fractures. Other: None IMPRESSION: Airspace opacities at the right lung base may represent combination of a layering chroni c pleural effusion and underlying scarring. No definite acute process identified.
[2022-01-22 21:15] LABS: Absolute Lymphocytes (CBC) 0.4 K/uL (0.7-4.9); Hematocrit 30.8 % (39.6-49.0); Lymphocytes % 3.5 % (15.3-44.8); MCV 90.4 fL (80-100); MPV 7.2 fL (7.6-11.3); RBC Red Blood Cell Count 3.41 M/uL (4.33-5.43)
[2022-01-22 21:35] LABS: Potassium 4.2 mmol/L (3.5-5.1); Troponin High Sensitivity 21.5 pg/mL (<58.9)
--- NOTE | 2022-01-22 22:05 | EDPHYS ---
Physician Documentation [facility] Name: Amando Grossman Age: 76 yrs Sex: Male : 1945 Arrival Date: 01/22/2022 Time: 16:50 Bed 6 Private MD: ED Physician Zion Cueva HPI: 01/22 18:07 This 76 yrs old Male presents to ER via Wheelchair with complaints of low heart rate. ms3 18:07 76-year-old male presents via [facility] for bradycardia. EMS states patient was ms3 at dialysis and received 1 hour of treatment when it was noted for his heart rate to be in the 40s. Patient is without complaints. Patient denies nausea, vomiting, shortness of breath, fevers, chills.. Onset: The symptoms/episode began/occurred just prior to arrival. Severity of symptoms: At their worst the symptoms were none, in the emergency department the symptoms No symptoms, Pain is currently a 0 / 10. 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 - Social history:: Smoking status: Patient denies any tobacco usage or history of. Patient/guardian denies using alcohol. ROS: 18:07 Constitutional: Negative for fever, and chills. Neck: Negative for injury, pain, and ms3 swelling, Cardiovascular: Negative for chest pain, and palpitations. Respiratory: Negative for shortness of breath, cough, wheezing, and pleuritic chest pain, Abdomen/GI: Negative for abdominal pain, nausea, vomiting, diarrhea, and constipation, Back: Negative for injury and pain, MS/Extremity: Negative for injury and deformity, Skin: Negative for injury, rash, and discoloration. 18:07 All other systems are negative. Exam: 18:07 Constitutional: This is a well developed, well nourished patient who is awake, alert, ms3 and in no acute distress. Head/Face: Normocephalic, atraumatic. Neck: Trachea midline, no cervical lymphadenopathy. Supple, full range of motion without nuchal rigidity, or vertebral point tenderness. No Meningismus. Chest/axilla: Normal chest wall appearance and motion. Nontender with no deformity. 18:07 Respiratory: Lungs have equal breath sounds bilaterally, clear to auscultation and percussion. No rales, rhonchi or wheezes noted. No increased work of breathing, no retractions or nasal flaring. Abdomen/GI: Soft, non-tender, with normal bowel sounds. No distension or tympany. No guarding or rebound. No evidence of tenderness throughout. Skin: Warm, dry with normal turgor. Normal color with no rashes, no lesions, and no evidence of cellulitis. Psych: Awake, alert, with orientation to person, place and time. Behavior, mood, and affect are within normal limits. 18:07 Cardiovascular: Rate: bradycardic, Rhythm: regular, irregular, Pulses: no pulse deficits are appreciated, Heart sounds: normal, normal S1and S2. Vital Signs: 16:56 Pulse 41; Resp 18; Temp 97.3(TE); Pulse Ox 98% on R/A; Weight 82 kg; Height 5 ft. 11 ld1 in. (180.34 cm); Pain 0/10; 17:02 BP 181 / 52; ld1 22:52 BP 157 / 61; Pulse 39; Resp 20; Pulse Ox 100% on R/A; ll3 01/23 00:24 BP 158 / 54; Pulse 41; Resp 20; Pulse Ox 96% on R/A; ll3 01/22 16:56 Body Mass Index 25.21 (82.00 kg, 180.34 cm) ld1 MDM: 01/22 17:04 Patient medically screened. ms3 19:11 Transition of care: After a detail discussion of the patient's case, care is ms3 transferred to Zion Cueva MD. 22:03 Differential Diagnosis bradycardia, ESRD, hyperkalemia, medication side effect. Data rn reviewed: vital signs, nurses notes, lab test result(s), EKG, and as a result, I will admit patient. Counseling: I had a detailed discussion with the patient and/or guardian regarding: the historical points, exam findings, and any diagnostic results supporting the discharge/admit diagnosis, lab results, the need for further work-up and treatment in the hospital. ED course: Pt still asymptomatic, 2nd degree block on ECG, on beta manuel, will admit for further evaluation and cardiology consultation. Consulted with Dr. Momin regarding case. . 01/22 17:14 Order name: Basic Metabolic Panel; Complete Time: 21:49 ms3 01/22 17:14 Order name: CBC with Diff; Complete Time: 21:30 ms3 01/22 17:14 Order name: Troponin HS; Complete Time: 21:49 ms3 01/22 17:14 Order name: XRAY Chest (1 view); Complete Time: 18:57 ms3 01/22 23:03 Order name: SARS RAPID mw2 01/22 23:35 Order name: SARS-COV-2 Antigen Rapid EDMS 01/22 17:14 Order name: EKG; Complete Time: 17:14 ms3 01/22 17:14 Order name: Cardiac monitoring; Complete Time: 21:31 ms3 01/22 17:14 Order name: EKG - Nurse/Tech; Complete Time: 21:31 ms3 01/22 17:14 Order name: IV Saline Lock; Complete Time: 23:08 ms3 01/22 17:14 Order name: Labs collected and sent; Complete Time: 21:31 ms3 01/22 17:14 Order name: O2 Per Protocol; Complete Time: 21:31 ms3 01/22 17:14 Order name: O2 Sat Monitoring; Complete Time: 21:19 ms3 Administered Medications: No medications were administered Disposition Summary: 01/22/22 22:04 Hospitalization Ordered Hospitalization Status: Observation rn Provider: Paolo Minaya rn Location: Telemetry/MedSurg (observation) rn Condition: Stable rn Problem: new rn Symptoms: are unchanged rn Bed/Room Type: Standard rn Room Assignment: 217(01/22/22 23:49) cg Diagnosis - Bradycardia, unspecified rn - End stage renal disease rn Forms: - Medication Reconciliation Form rn - SBAR form rn Signatures: Dispatcher [employer] EDMS Zion Cueva MD MD rn Garcia, Cindy, RN RN Valentino Reed DO DO ms3 Mayra Simon RN RN ld1 Corrections: (The following items were deleted from the chart) 23:28 22:03 ED course: Pt still asymptomatic, 2nd degree block on ECG, on beta manuel, will music internship for further evaluation and cardiology consultation. . rn 23:49 22:04 rn cg
--- NOTE | 2022-01-22 22:05 | ER ---
Nurse's Notes [facility] Name: Amando Grossman Age: 76 yrs Sex: Male : 1945 Arrival Date: 01/22/2022 Time: 16:50 Bed 6 Private MD: Diagnosis: Bradycardia, unspecified;End stage renal disease Presentation: 01/22 16:56 Chief complaint: Patient states: toned out to [facility] dialysis - HR in 40's. Denies ld1 pain, no SOB, no complaints. Dialysis wanted pt to be checked out due ot low HR. Coronavirus screen: At this time, the client does not indicate any symptoms associated with coronavirus-19. Ebola Screen: No symptoms or risks identified at this time. Initial Sepsis Screen: Does the patient meet any 2 criteria? No. Patient's initial sepsis screen is negative. Does the patient have a suspected source of infection? No. Patient's initial sepsis screen is negative. Risk Assessment: Do you want to hurt yourself or someone else? Patient reports no desire to harm self or others. Onset of symptoms was January 22, 2022. 16:56 Method Of Arrival: Wheelchair ld1 16:56 Acuity: KELLY 3 ld1 Triage Assessment: 17:00 General: Appears in no apparent distress. comfortable, Behavior is calm, cooperative, ld1 appropriate for age. Pain: Denies pain. EENT: No signs and/or symptoms were reported regarding the EENT system. Neuro: Level of Consciousness is awake, alert, obeys commands, Oriented to person, place, time, situation. Cardiovascular: Capillary refill < 3 seconds Patient's skin is warm and dry. Rhythm is sinus bradycardia. Respiratory: Airway is patent Respiratory effort is even, unlabored. GI: Abdomen is round non-distended. : No signs and/or symptoms were reported regarding the genitourinary system. Derm: No signs and/or symptoms reported regarding the dermatologic system. Musculoskeletal: No signs and/or symptoms reported regarding the musculoskeletal system. 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 - Social history:: Smoking status: Patient denies any tobacco usage or history of. Patient/guardian denies using alcohol. Screenin/13 00:29 Abuse screen: Denies threats or abuse. Denies injuries from another. Nutritional ll3 screening: No deficits noted. Tuberculosis screening: No symptoms or risk factors identified. Fall Risk No secondary diagnosis (0 pts). IV access (20 points). Ambulatory Aid- None/Bed Rest/Nurse Assist (0 pts). Gait- Impaired (20 pts.). Mental Status- Oriented to own ability (0 pts). Total Kamara Fall Scale indicates Low Risk Score (25-44 pts). Fall prevention measures have been instituted. Side Rails Up X 2 Placed close to Nursing Station As available Patient and Family Educated on Fall Prevention Program and strategies. Assessment: 01/22 19:00 General: Appears in no apparent distress. comfortable, Behavior is calm, cooperative. ll3 Pain: Denies pain. Neuro: Level of Consciousness is awake, alert, obeys commands, Oriented to person, place, time, situation. Cardiovascular: Patient's skin is warm and dry. Rhythm is sinus bradycardia. Derm: Skin is pink, warm \\T\\ dry. 22:00 Reassessment: No changes from previously documented assessment. Patient and/or family ll3 updated on plan of care and expected duration. Pain level reassessed. Patient is alert, oriented x 3, equal unlabored respirations, skin warm/dry/pink. 01/23 00:24 Reassessment: No changes from previously documented assessment. Patient and/or family ll3 updated on plan of care and expected duration. Pain level reassessed. Patient is alert, oriented x 3, equal unlabored respirations, skin warm/dry/pink. Vital Signs: 01/22 16:56 Pulse 41; Resp 18; Temp 97.3(TE); Pulse Ox 98% on R/A; Weight 82 kg; Height 5 ft. 11 ld1 in. (180.34 cm); Pain 0/10; 17:02 BP 181 / 52; ld1 22:52 BP 157 / 61; Pulse 39; Resp 20; Pulse Ox 100% on R/A; ll3 01/23 00:24 BP 158 / 54; Pulse 41; Resp 20; Pulse Ox 96% on R/A; ll3 01/22 16:56 Body Mass Index 25.21 (82.00 kg, 180.34 cm) ld1 ED Course: 01/22 16:50 Patient arrived in ED. iw 17:00 Triage completed. ld1 17:00 Arm band placed on right wrist. ld1 17:04 Valentino Michael DO is Attending Physician. ms3 18:29 XRAY Chest (1 view) In Process Unspecified. EDMS 19:04 Attending Physician role handed off by Valentino Michael DO rn 19:04 Zion Cueva MD is Attending Physician. rn 21:19 Troponin HS Sent. jb4 21:19 CBC with Diff Sent. jb4 21:19 Basic Metabolic Panel Sent. jb4 22:04 Paolo Minaya MD is Hospitalizing Provider. rn 22:50 Missed attempt(s): 18 gauge in right upper arm. Bleeding controlled, band aid applied, bb catheter tip intact. 23:00 Accessed ,peripheral vein via ultrasound, utilizing static ultrasound technique bb Powerglide midline 20g 8cm to right upper arm using hospital protocol with good blood return and flushes easily pt tolerated okay. 01/23 00:29 Patient has correct armband on for positive identification. Placed in gown. Bed in low ll3 position. Call light in reach. Side rails up X 1. 00:29 No provider procedures requiring assistance completed. ll3 Administered Medications: No medications were administered Medication: 00:30 VIS not applicable for this client. ll3 Outcome: 01/22 22:04 Decision to Hospitalize by Provider. rn 01/23 00:58 Patient left the ED. bb Signatures: Dispatcher [employer] EDMS Britta Velazquez RN RN bb Bettye Allison, RN Zion Mcleod MD MD rn Bryson, James, RN RN jb4 Valentino Michael DO DO ms3 Mayra Simon RN RN ld1 Andrés Gandara RN RN ll3
--- NOTE | 2022-01-22 23:00 | P.HP ---
Certification for Inpatient Patient admitted to: Observation With expected LOS: <2 Midnights Patient will require the following post-hospital care: None Practitioner: I am a practitioner with admitting privileges, knowledge of patient current condition, hospital course, and medical plan of care. Services: Services provided to patient in accordance with Admission requirements found in Title 42 Section 412.3 of the Code of Federal Regulations Patient History Date of Service: 01/22/22 Reason for admission: Bradycardia, ESRD History of Present Illness: Patient is a 76-year-old male with history of ESRD on HD, hypertension, hyperlipidemia, and GERD who was sent to the ED for further evaluation of bradycardia. Patient was receiving HD today and they noted his heart rate to be in the 40s. They were only able to get 1L of fluid off. He states that he is completely asymptomatic. EKG shows 2nd degree AV block with 2:1 conduction. His labs are significant for hgb 10.3, hct 30.8, BUN 47, Cr 3.98. Cardiology was contacted and has agreed to consult. patient reports he DOES take a beta manuel daily. He is admitted for observation. Allergies Iodinated Contrast Media [Iodinated Contrast- Oral and IV Dye] Allergy (Verified 11/24/21 11:44) Nausea/Vomiting/Diarrhea Penicillins Allergy (Verified 11/24/21 11:44) Hives shellfish derived Allergy (Verified 11/24/21 11:44) Nausea/Vomiting/Diarrhea Home medications list reviewed: Yes Home Medications: Aspirin [Aspirin EC 81 MG] 81 mg PO DAILY 01/10/17 Celecoxib [Celebrex*] 100 mg PO DAILY 01/10/17 Clopidogrel Bisulfate [Plavix*] 75 mg PO DAILY 01/10/17 Fluticasone [Flovent Hfa 110*] 2 sprays IH BID 01/10/17 Metoprolol Tartrate 100 mg PO BID 01/10/17 Niacin 500 mg PO DAILY 01/10/17 Nifedipine Xl [Procardia XL*] 60 mg PO [id number] 01/10/17 Nisoldipine [Sular] 34 mg PO DAILY AFTER SUPPER 01/10/17 Pantoprazole [Protonix Tab*] 40 mg PO DAILY 01/10/17 Tamsulosin [Flomax*] 0.4 mg PO BEDTIME 01/10/17 Ubidecarenone/Vitamin E Mixed [Tvb25-Mra E 200 mg-20 Unit Sfg] 1 each PO DAILY 01/10/17 Vit A/Vit C/Vit E/Zinc/Copper [Icaps Areds Formula Dr Tablet] 1 each PO DAILY 01/10/17 Zolpidem Tartrate [Ambien*] 10 mg PO BEDTIME PRN PRN 01/10/17 - Past Medical/Surgical History Diabetic: No -: ESRD on HD -: Hyperlipidemia -: GERD -: Hypertension -: Depression/Anxiety -: Macular Degeneration Past Surgical History: Patient denies surgical history Psychosocial/ Personal History: Patient lives at home with his family. - Family History Family History: Reviewed- Non-Contributory - Social History Smoking Status: Never smoker Alcohol use: No CD- Drugs: No Caffeine use: Yes Place of Residence: Home Review of Systems Unremarkable Physical Examination - Vital Signs Temperature: 97.3 F Blood Pressure: 157/61 Pulse: 39 Respirations: 20 Pulse Ox (%): 98 (room air) - Physical Exam General: Alert, In no apparent distress HEENT: Atraumatic, PERRLA, EOMI, Sclerae nonicteric Neck: Supple, 2+ carotid pulse no bruit Respiratory: Clear to auscultation bilaterally, Normal air movement Cardiovascular: No edema, Other (Bradycardic), Irregular heart rate/rhythm Gastrointestinal: Normal bowel sounds, No tenderness Musculoskeletal: No tenderness Integumentary: No rashes Neurological: Normal speech, Normal strength at 5/5 x4 extr, Normal tone, Normal affect - Studies Laboratory Data (last 24 hrs) 01/22/22 21:04: WBC 10.20, Hgb 10.3 L, Hct 30.8 L, Plt Count 286 01/22/22 21:04: Sodium 135 L, Potassium 4.2, BUN 47 H, Creatinine 3.98 H, Glucose 145 H Assessment and Plan - Problems (Diagnosis) (1) 2nd degree AV block Current Visit: Yes Status: Acute (2) Bradycardia Current Visit: Yes Status: Acute (3) End stage chronic kidney disease Current Visit: Yes Status: Chronic (4) Hypertension Current Visit: Yes Status: Chronic Qualifiers: Hypertension type: primary hypertension Qualified Code(s): I10 - Essential (primary) hypertension (5) Hyperlipidemia Current Visit: Yes Status: Chronic Qualifiers: Hyperlipidemia type: unspecified Qualified Code(s): E78.5 - Hyperlipidemia, unspecified (6) Anemia Current Visit: Yes Status: Acute Qualifiers: Anemia type: due to chronic kidney disease Chronic kidney disease stage: on chronic dialysis Qualified Code(s): N18.6 - End stage renal disease; D63.1 - Anemia in chronic kidney disease; Z99.2 - Dependence on renal dialysis - Plan Patient is admitted for observation. Cardiology consult for further evaluation of 2nd degree AV block. Nephrology consult with patient's sound effects person, Dr. Nj, as patient was not able to complete HD. Monitor patient on telemetry. Echo ordered. HOLD beta blockers. Reconcile and continue other home medications. Monitor and replete electrolytes per protocol. VTE prophylaxis. Full code. Discharge Plan: Home Plan to discharge in: 24 Hours - Advance Directives Does patient have a Living Will: No Does patient have a Durable POA for Healthcare: No - Code Status/Comfort Care Code Status Assessed: Yes Code Status: Full Code Physician Review: Patient Assessed, Agree with Above Assessment and Plan Critical Care: No Time Spent Managing Pts Care (In Minutes): 50
[2022-01-22 23:35] LABS: SARS-CoV-2 Antigen Rapid Res Negative (Negative)
[2022-01-23] MEDS ORDERED: ACETAMINOPHEN 325 MG TABLET PO PRN (01:18)
[2022-01-23] MEDS ORDERED: ZOLPIDEM TARTRATE 10 MG TABLET PO PRN (01:18)
[2022-01-23] MEDS ORDERED: ONDANSETRON 4 MG/2 ML VIAL IV PRN (01:18)
[2022-01-23 03:54] VITALS: O2SAT 98
[2022-01-23 06:55] VITALS: BMI 25.2
--- NOTE | 2022-01-23 13:08 | P.DS ---
Admission Date: 01/22/22 Discharge Date: 01/23/22 Disposition: ROUTINE DISCHARGE Discharge Condition: FAIR Reason for Admission: Bradycardia, ESRD Consultations: Cardiology-Dr. Diaz - Problems (1) 2nd degree AV block Current Visit: Yes Status: Acute (2) Bradycardia Current Visit: Yes Status: Acute (3) End stage chronic kidney disease Current Visit: Yes Status: Chronic (4) Hypertension Current Visit: Yes Status: Chronic Qualifiers: Hypertension type: primary hypertension Qualified Code(s): I10 - Essential (primary) hypertension Brief History of Present Illness: Patient is a 76-year-old male with history of ESRD on HD, hypertension, hyperlipidemia, and GERD who was sent to the ED for further evaluation of bradycardia. Patient was receiving HD today and they noted his heart rate to be in the 40s. They were only able to get 1L of fluid off. He denied any symptoms. EKG showed 2nd degree AV block with 2:1 conduction. His labs are significant for hgb 10.3, hct 30.8, BUN 47, Cr 3.98. Cardiology was contacted and patient hospitalized for further management. Hospital Course: Patient placed on observation on the medical floor. Telemetry showed Mobitz type II AV block, heart rates ranging from 30-40. Blood pressure was stable, and actually hypertensive. Patient has been asymptomatic.He is on metoprolol which was discontinued. Cardiology Dr. Diaz was consulted who recommended follow-up with him in the office tomorrow for further evaluation including an event monitor. Patient request to go home today. He has been asymptomatic. He is discharged to follow-up with Dr. Diaz tomorrow in the office. Vital Signs/Physical Exam: Temp Pulse Resp BP Pulse Ox 98.7 F 43 L 16 180/73 H 93 01/23/22 08:00 01/23/22 08:00 01/23/22 08:00 01/23/22 08:00 01/23/22 08:00 General: Alert, In no apparent distress, Oriented x3 HEENT: Mucous membr. moist/pink Neck: Supple, JVD not distended Respiratory: Clear to auscultation bilaterally, Normal air movement Cardiovascular: No edema, Normal S1 S2, No murmurs, Irregular heart rate/rhythm Gastrointestinal: Normal bowel sounds, Soft and benign, Non-distended, No tenderness Musculoskeletal: No swelling Neurological: Normal strength at 5/5 x4 extr Laboratory Data at Discharge: WBC 10.20 K/uL (4.3-10.9) 01/22/22 21:04 Hgb 10.3 g/dL (13.6-17.9) L 01/22/22 21:04 Hct 30.8 % (39.6-49.0) L 01/22/22 21:04 Plt Count 286 K/uL (152-406) 01/22/22 21:04 Sodium 135 mmol/L (136-145) L 01/22/22 21:04 Potassium 4.2 mmol/L (3.5-5.1) 01/22/22 21:04 BUN 47 mg/dL (7-18) H 01/22/22 21:04 Creatinine 3.98 mg/dL (0.70-1.30) H 01/22/22 21:04 Glucose 145 mg/dL (74-106) H 01/22/22 21:04 Home Medications: Aspirin [Aspirin EC 81 MG] 81 mg PO DAILY 01/10/17 Celecoxib [Celebrex*] 100 mg PO DAILY 01/10/17 Clopidogrel Bisulfate [Plavix*] 75 mg PO DAILY 01/10/17 Fluticasone [Flovent Hfa 110*] 2 sprays IH BID 01/10/17 Niacin 500 mg PO DAILY 01/10/17 Nifedipine Xl [Procardia XL*] 60 mg PO [id number] 01/10/17 Nisoldipine [Sular] 34 mg PO DAILY AFTER SUPPER 01/10/17 Pantoprazole [Protonix Tab*] 40 mg PO DAILY 01/10/17 Tamsulosin [Flomax*] 0.4 mg PO BEDTIME 01/10/17 Ubidecarenone/Vitamin E Mixed [Afe08-Kyy E 200 mg-20 Unit Sfg] 1 each PO DAILY 01/10/17 Vit A/Vit C/Vit E/Zinc/Copper [Icaps Areds Formula Dr Tablet] 1 each PO DAILY 01/10/17 Zolpidem Tartrate [Ambien*] 10 mg PO BEDTIME PRN PRN 01/10/17 Diet: AHA Activity: Ad ana lilia Followup: Arnaldo Diaz MD [ACTIVE - CAN ADMIT] - 1 Day (Follow up in the office tomorrow at 8 am or 1 pm. Please call [phone].)
[2022-01-23 13:14] VITALS: BP 172/72; TEMP 98.2
--- NOTE | 2022-01-23 14:35 | EKG ---
Test Date: 2022-01-22 Test Time: 21:25:40 Criminal Investigator: COLLIN MEASUREMENT RESULTS: Intervals: Rate: 39 ME: 202 QRSD: 150 QT: 698 QTc: 561 [place]: P: 58 ME: 202 QRS: 96 T: 51 INTERPRETIVE STATEMENTS: Sinus rhythm with 2nd degree AV block with 2:1 AV conduction Right bundle branch block Abnormal ECG Compared to ECG 11/24/2021 12:06:02 First degree AV block no longer present Electronically Signed On 01-23-22 14:34:16 MUSEUM OR ZOO DIRECTOR by Palomo Momin
--- NOTE | 2022-01-23 17:45 | CON ---
Date of Consultation: 01/23/2022 Reason For Consultation: Elevated BUN and creatinine, fluid management. History Of Present Illness: This is a pleasant 76-year-old gentleman, well known to me from dialysis with significant past medical history of end-stage renal disease, dialysis dependent Saturday and ay, hypertension, hyperlipidemia, depression, macular degeneration, peripheral vascular disease statu s post right below-knee amputation, the patient came to the hospital from dialysis with bradycardia, found to have Mobitz 2. The patient seen by Cardiology and cleared. Labs show elevation in BUN and creatinine. For that reason, we have been consulted. The patient denied any chest pain. No nausea. No vomiting. No shortness of breath. Past Medical History: Includes; 1.Hypertension. 2.Hyperlipidemia. 3.GERD. Past Surgical History: Includes; 1.Above-knee amputation. 2.Knee replacement. Allergies: TO IODINE, PENICILLIN, AND SHELLFISH. Home Medications: Include Celebrex, aspirin, Plavix, metoprolol, nifedipine, pantoprazole, Flomax, v itamin. Family History: Positive for hypertension. Social History: Lives alone. Denied smoking. Denied drinking. Denied drugs abuse. Review of Systems: Head and Neck: No red eye. No ear pain. GI: No nausea. No vomiting. : No polyuria. No dysuria. No hematuria. Cooperative Education Coordinator: Not applicable. Respiratory: No shortness of breath. Cardiovascular: No chest pain. Has bradycardia. Endocrine: No polydipsia. Skin: No rash. Neuro: Has neuropathy. Musculoskeletal: Has low back pain. Physical Examination: General: When I saw the patient; the patient sitting in the chair. Vital Signs: Blood pressure 172/72, pulse of 47, afebrile. Chest: Clear to auscultation. Heart: S1, S2. Systolic murmur. Abdomen: Soft, nontender. Extremity: Right above-knee amputation. Laboratory Data: Hemoglobin 10.3. Sodium 135, potassium 4.2, bicarb 26, BUN 47, creatinine 3.9, raman cium 8.6. Current Medications: The patient on include; 1.Tylenol. 2.Ambien. Assessment And Plan: 1.End-stage renal disease. Normal volume. No hyperkalemia or acidosis. We will continue the patie nt on his schedule. 2.Hyponatremia, going to be corrected with dialysis. 3.Alkalosis, stable. Will be corrected with dialysis. 4.Hypertension, controlled, optimal. Continue current treatment. 5.Anemia of chronic kidney disease. Continue EMMY. 6.Bradycardia secondary to Mobitz 2. Seen by Cardiology and cleared. We will follow up with Cardio logy. The patient cleared from the Renal standpoint for discharge planning. BRAD Voice ID: [id number] Report ID: [id number]
[2022-01-23] MEDS ORDERED: TRAZODONE 150 MG TAB PO SCH (23:09)
--- NOTE | 2022-01-24 06:44 | ECHO ---
HEIGHT: 5 ft 11 in WEIGHT: 180 lb 12.8 oz DATE OF STUDY: 01/23/[address]: 2-DIMENSIONAL: YES M.MODE: YES DOPPLER: YES COLOR FLOW: YES TDS: PORTABLE: YES DEFINITY: BUBBLE STUDY: DIAGNOSIS: BRADYCARDIA CARDIAC HISTORY: CATHERIZATION: SURGERY: PROSTHETIC VALVE: PACEMAKER: MEASUREMENTS (cm) DIASTOLIC (NORMALS) SYSTOLIC (NORMALS) IVSd 1.2 (0.6-1.2) LA Diam 4.6 (1.9-4.0) LVEF 55-60% LVIDd 4.7 (3.5-5.7) LVIDs 3.5 (2.0-3.5) %FS 25% LVPWd 1.3 (0.6-1.2) Ao Diam 2.9 (2.0-3.7) 2 DIMENSIONAL ASSESSMENT: RIGHT ATRIUM: NORMAL LEFT ATRIUM: ENLARGED RIGHT VENTRICLE: NORMAL LEFT VENTRICLE: NORMAL TRICUSPID VALVE: MILD TRICUSPID REGURGITATION MITRAL VALVE: MILD MITRAL REGURGITATION PULMONIC VALVE: NORMAL AORTIC VALVE: AORTIC VALVE STENOSIS PERICARDIAL EFFUSION: NONE AORTIC ROOT: NORMAL LEFT VENTRICULAR WALL MOTION: NORMAL DOPPLER/COLOR FLOW: SEE BELOW COMMENTS: 1. NORMAL LEFT VENTRICULAR EJECTION FRACTION 55-60% 2. NORMAL WALL MOTION 3. MILD TRICUSPID REGURGITATION/ MILD MITRAL REGURGITATION 4. 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 SEVERE AORTIC STENOSIS BY DOPPLER 6. LEFT ATRIAL ENLARGEMENT TECHNOLOGIST: PETE GRACIA
== END 2022-01-23 13:15 | disposition home or self-care (01) ==
LOC: ER 16:26 → ERHOLD 22:57 → 2ND 01-23 00:33
PROVIDERS: ADMIT Internal Medicine; ATTEND Internal Medicine
DX: I44.1 Atrioventricular block, second degree (principal); R00.1 Bradycardia, unspecified; N18.6 End stage renal disease; I10 Essential (primary) hypertension; E78.5 Hyperlipidemia, unspecified; F32.A Depression, unspecified; I73.9 Peripheral vascular disease, unspecified; Z99.2 Dependence on renal dialysis; K21.9 Gastro-esophageal reflux disease without esophagitis; E87.1 Hypo-osmolality and hyponatremia; D63.1 Anemia in chronic kidney disease; Z20.822 Contact with and (suspected) exposure to COVID-19
CPT/HCPCS: 36415; 71045; 80048; 84484; 85025; 87811; 93005; 93306; 94760; G0378

== ENCOUNTER 2022-02-10 16:17 | Emergency (ER) | payer OTHER, BC ==
--- OUTSIDE RECORDS SUMMARY | 2022-02-10 16:29 | XMS REPORT | Continuity of Care Document ---
:1945 Author Organization [facility] t Address [address] [place] [address] Care Team Providers Name Role Phone LAISON COMBS TERESA Primary Care Physician Unavailable [id number] Attending Clinician Unavailable SHARON DIAZ IGNAZIO Attending Clinician Unavailable Provider, Undefined Attending Clinician Unavailable Sekou Curtis Attending Clinician Unavailable Chaya Villafuerte Kelcey Attending Clinician Unavailable Vesta Aguilar Attending Clinician VESTA AGUILAR Attending Clinician Unavailable NEERU MARLEY Attending Clinician Unavailable Neeru Marley MD Attending Clinician RADIOLOGY Attending Clinician Unavailable Radiology Attending Clinician Unavailable Doctor Unassigned, [place] Attending Clinician Unavailable Maddy Guo Attending Clinician SVETLANA KENNY Attending Clinician Unavailable Javad MOSQUERA, Arturo Gupta Attending Clinician [phone] Svetlana Cano MD Attending Clinician Daniel Rocha MD Attending Clinician LOVE HILARIO Attending Clinician Unavailable Nicky Sandoval MA Attending Clinician Unavailable SANDRA GUO Attending Clinician Unavailable Usha MOSQUERA, Obi Almanza Attending Clinician Emilee Wooten MA Attending Clinician Unavailable Nolberto MOSQUERA, Suzanne Egan Attending Clinician [phone] Clint King DO Attending Clinician [phone] Dickson MOSQUERA, Kristopher Attending Clinician Liu Mccloud Attending Clinician Gladys MOSQUERA, Clint Fair Attending Clinician Oswald York MD Attending Clinician Wanda Pedraza Attending Clinician Wanda PICKENS Attending Clinician Unavailable Liss Mosley MD Attending Clinician [id number] Admitting Clinician Unavailable SHARON DIAZ IGNAZIO Admitting Clinician Unavailable CHAYA VILLAFUERTE Admitting Clinician Unavailable Sekou Curtis Admitting Clinician Unavailable Chaya Villafuerte Kelcey Admitting Clinician Unavailable Jl Forte Admitting Clinician JL FORTE Admitting Clinician Unavailable NEERU MARLEY Admitting Clinician Unavailable LIDA MUKHERJEE Admitting Clinician Unavailable SVETLANA CANO Admitting Clinician Unavailable JESSICA BELLAMY Admitting Clinician Unavailable CLINT KING Admitting Clinician Unavailable Payers Payer Name Policy Type Policy Number Effective Date Expiration Date S ource [facility] [id number] BCTX BCTI [id number] MEDICARE A B [id number] 2010 00:00:00 [place] [id number] 2010 OS 00:00:00 MEDICARE PART A \\T\\ [id number] 2010 B 00:00:00 BCBS TRADITIONAL [id number] 2010 00:00:00 MEDICARE PART B - [id number] 2010 2014 MEDICARE 00:00:00 00:00:00 PPO/EPO - BCBS [id number] 2016 00:00:00 Problems Condition Condition Condition Status Onset Resolution Last Treating Co mments Source Name Details Category Date Date Treatment Clinician Date GI BLEED GI BLEED Diagnosis Active 2021-022021-12-16 Memoria Active 1 05:39:00 l 12/16/2021 00:00: Carlton escoto [address] ACUTE ACUTE Diagnosis Active 2021-022021-12-27 Mem oria LOWER GI LOWER GI 02-15 21:46:00 l BLEEDING, BLEEDING, 00:00: Chinyere schneider HX OF HX OF 00 COLONIC D COLONIC D Active 12/16/2021 [facility] Diverticul Diverticul Disease Active 2021-[address] [facility] 02[facility]11 [facility] [place] Lower GI Lower GI Disease Active 2021-02 [facility] [place] Hyperkalem Hyperkalem Disease Active M ethodi ia [facility] 00:00: Hospita 00 l Acute GI Acute GI Disease Active [facility] di bleeding bleeding 06-12 st 00:00: Hospita 00 l End stage End stage Disease Active [facility] renal renal 4-04 [facility] College disease disease 00:00: t & Plan: of (HCCode) (HCCode) 00 Formattin Med icin g of this e note might be different from the original. Stable on HD. 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 Stable symptoms on current regimen which are separate from his recent chest pain. 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 [facility] tic aortic tic aortic 0-10 [facility] sclerosis sclerosis 00:00: t [...] Added automatic ally from request for surgery [id number] End stage End stage Disease Active [facility] renal renal -23 st disease on disease on 00:00: Ho spita dialysis dialysis 00 l Impaired Impaired Disease Active 2018-02 [facility] r fasting fasting 1-17 [place] glucose glucose 00:00: Medicin e Urinary Urinary Disease Active 2018-02 [facility] frequency frequency 1-17 Natan ege 00:00: Medicin e Chronic Chronic Disease Active 2018-02 [facility] disease disease 0-09 st anemia anemia 00:00: Hospita 00 l Chronic Chronic Disease Active 2019-1 [facility] disease disease 0-09 st anemia anemia 00:00: Hospita 00 l Chronic Chronic Disease Active 2018-02 [facility] kidney kidney 009 disease, disease, 00:00: Hospit a stage IV stage IV 00 l (severe) (severe) Arthritis Arthritis Disease Active 2017-02 [facility] taylor of knee, of knee, 2 Colleg e left left 00:00: of 00 Medicin e 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 [facility] t[facility] knee knee 03-24 College replacemen replacemen 00:00: of t, t, 00 Medicin bilateral bilateral e Anemia, Anemia, Disease Active 2017-02 [facility] unspecifie unspecifie 1 st d d 00:00: Hospita 00 l Chronic Chronic Disease Active [facility] [place] renal renal 07-22 [place] disease, disease, 00:00: of stage 4, stage 4, 00 Medici n severely severely e decreased decreased glomerular glomerular filtration filtration rate (GFR) rate (GFR) between between 15-29 15-29 mL/min/1.7 mL/min/1.7 3 square 3 square meter meter (HCCode) (HCCode) Essential Essential Disease Active Overview: [facility] hypertensi hypertensi 09-23 [facility] on on 00:00: g of this of note Medicin might be e different from the original. Stable and sometimes BP drops too muchLast Assessmen t & Plan: Formattin g of this note might be different from the original. Controlle d on the current regimen. Heart Heart Disease Active Overview: [facility] murmur murmur 09-23 [facility] 00:00: systolic of 00 murmur Medicin Grade 2/6 e over LSB , not radiating in any direction but audible over most of [place] l areaLast Assessmen t & Plan: Continue current Rx and control all risk factors including weight S/P S/P Disease Active Overview: [facility] angioplast angioplast 09-23 In 2009 C ollege y with y with 00:00: he had A of stent stent 00 stent Medicin deployed e in proximal RCA andCx had only Angioplas ty with good resultsLa st Assessmen t & Plan: Continue current Rx and control all risk factors including weight H/O H/O Disease Active Overview: [facility] unilateral unilateral 09-23 He had Co llege nephrectom nephrectom 00:00: nephrecto of y y 00 my long Medicin time ago e and the other kidney is weakLast Assessmen t & Plan: Monitor closely Rx and control all risk factors including weight Arthritis Arthritis Disease Active Overview: [facility] of knee, of knee, 09-23 He has Colleg e right right 00:00: severe of 00 arthritis Medicin with e joint replaceme nt and now has infection for which he is using [facility] infection Antibioti c Last Assessmen t & [...] prosthetic prosthetic 00 Ce nter joint joint Illness Illness Diagnosis 2021-12-25 Memoria (finding) (finding) 23:24:01 l Diagnosis Jimmy 12/25/2021 [facility] Abdominal Abdominal Problem Resolve 2020-12-31 Memoria pain pain d 22:26:03 l (finding) (finding) Herm jennie Resolved Problem 12/31/2020 [facility] Chronic Chronic Problem Resolve 2020-12-31 M emoria kidney kidney d 22:26:03 l disease disease [place] stage 3 stage 3 (disorder) (disorder) Resolved Problem 12/31/2020 [facility] Degenerati Degenerat Problem Resolve 2020-12-31 Memoria ve emmanuel d 22:26:03 l disorder disorder Carlton n of macula of macula (disorder) (disorder) Resolved Problem 12/31/2020 RT [facility] Procedure Procedure Problem Resolve 2020-12-31 Memoria on heart on heart d 22:26:03 l (procedure (procedure He rmann ) ) Resolved Problem 12/31/2020 STENT PLACEMENT [facility] Insomnia Insomnia Problem Resolve 2020-12-31 Memoria (disorder) (disorder) d 22:26:03 l Resolved [place] Problem 12/31/2020 [facility] Urinary Urinary Problem Resolve 2020-12-31 Memoria tract tract d 22:26:03 l infectious infectious He rmann disease disease (disorder) (disorder) Resolved Problem 12/31/2020 [facility] Atheroscle Atheroscl Problem Active 2020-12-31 Memoria rosis of erosis of 22:26:03 l coronary coronary Carlton n artery artery (disorder) (disorder) Active Problem 12/31/2020 Data migrated from [employer] on 07/10/14. Medical Group Gastroesop Problem Active 2020-12-31 M emoria hageal Gastroesop 22:26:03 l reflux hageal Jimmy disease reflux (disorder) disease (disorder) Active Problem 12/31/2020 Data migrated from [employer] on 07/10/14. Medical [facility] Benign Benign Problem Active 2021-12-25 Andres dora prostatic prostatic 23:24:01 l hyperplasi hyperplasi He rmann a a (disorder) (disorder) Active Problem 12/25/2021 [facility] Chronic Chronic Problem Active 2021-12-25 M emoria infectious infectious 23:24:01 l disease disease [place] (disorder) (disorder) Active Problem 12/25/2021 [facility] Coronary Coronary Problem Active 2021-12-25 Memoria arterioscl arterioscl 23:24:01 l erosis erosis [place] (disorder) (disorder) Active Problem 12/25/2021 [facility] Diabetes Diabetes Problem Active 2021-12-25 Memoria mellitus mellitus 23:24:01 l type 2 type 2 Jimmy (disorder) (disorder) Active Problem 12/25/2021 Automatica lly added by Discern Expert with order of Add Problem Diabetes Type II on December 01, 2018 14:23:39 CDT with order ID: [id number] 9.0 entered by Lida Mukherjee. [facility] Dyslipidem Dyslipide Problem Active 2021-12-25 Memoria ia liseth 23:24:01 l (disorder) (disorder) He rmann Active Problem 12/25/2021 [facility] History of History Problem Active 2021-12-25 Memoria colectomy of 23:24:01 l (situation colectomy Her garcia ) (situation ) Active Problem 12/25/2021 [facility] Hypertensi Hypertens Problem Active 2021-12-25 Memoria ve emmanuel 23:24:01 l disorder, disorder, Herm jennie systemic systemic arterial arterial (disorder) (disorder) Active Problem 12/25/2021 Data migrated from [facility] on 07/10/14. Medical Group,[facility] Obesity Obesity Problem Active 2021-12-25 Me moria (disorder) (disorder) 23:24:01 l Active Jimmy Problem 12/25/2021 Medical [facility] Prosthetic Problem Active 2021-12-25 M emoria joint Prosthetic 23:24:01 l infection joint Jimmy (disorder) infection (disorder) Active Problem 12/25/2021 Medical [facility] ILLNESS, ILLNESS, Diagnosis Active 2021-12-16 Memoria UNSPECIFIE UNSPECIFIE 05:39:00 l D D Active [facility] GASTROINTE GASTROINT Diagnosis Active 2021-12-27 Memoria STINAL ESTINAL 21:46:00 l HEMORRHAGE HEMORRHAGE He rmann , , UNSPECIFIE UNSPECIFIE D D Active [facility] PERSONAL PERSONAL Diagnosis Active 2021-12-27 Memoria HISTORY OF HISTORY OF 21:46:00 l OTHER OTHER [place] DISEASES DISEASES OF OF TH Active [facility] Allergies, Adverse Reactions, Alerts Allergy Allergy Status Severity Reaction(s) Onset Inactive Treating Comm ents Source Name Type Date Date Clinician No Known DA Active [facility] Allergie 05-13 [place] s 00:00: d 00 [facility] No Known DA Active [facility] Allergie 05-13 [place] s 00:00: d 00 [facility] Iodine FA Active AR DIARRHEA [facility] and 05-13 [place] Iodide 00:00: d Containi [facility] Produc shellfis FA Active SV SWELLING [facility] h 05-13 [place] derived 00:00: d 00 [facility] Iodine FA Active AR [facility] and 05-13 Clear Iodide 00:00: [place] Containi 00 [facility] shellfis FA Active SV 0 [facility] h 05-13 Clear derived 00:00: [facility] PINICILL DA Active AR ITCHING [facility] IN 05-13 Clear 00:00: [facility] Iodine Propensi Active Rash Univers ty to 9-30 ity of adverse 00:00: [place] reaction 00 [facility] Penicill Propensi Active Anaphylaxis 2020-0 U nivers ins ty to 9-30 ity of adverse 00:00: [place] reaction 00 Medical s [facility] IODINE DRUG Active Rash 2020-0 Univers INGREDI 9-30 ity of 00:00: [place] 00 [facility] PENICILL Drug Active Anaphylaxis 2020-0 Uni vers INS Class 9-30 ity of 00:00: [place] 00 [facility] SHELLFIS DRUG Active Diarrhea 2020-0 Univer s H INGREDI 9-30 ity of DERIVED 00:00: [place] 00 [facility] Shellfis Propensi Active Nausea 2020-0 Univer s h ty to and/or 930 ity of Derived adverse Vomiting 00:00: [place] reaction 00 Medical s Branch Penicill Propensi Active Anaphylaxis 2020-0 U nivers ins ty to 9-30 ity of adverse 00:00: [place] reaction 00 Medical s Branch Penicill Propensi Active 2018- [facility] ins ty to 2-10 College adverse 00:00: of reaction 00 Medicin s to e drug Fish-Polo Propensi Active Moderate 2017-0 [facility] or ived ty to 8-13 College Products adverse 00:00: of reaction 00 Medicin s to e drug Iodine Propensi Active Moderate 2017-0 [facility] ty to 8-13 College adverse 00:00: of reaction 00 Medicin s to e drug Eicosape Propensi Active 2017-[address] [facility]eno[facility] ty to 8-13 [facility] Acid adverse 00:00: Medical reaction 00 Center s EICOSAPE Allergy Active 2017-0 [facility] NTAENOIC 8-13 ACID 00:00: 00 Shellfis [...] l s to drug Atorvast Propensi Active [facility] atin ty to 2-24 College adverse 00:00: [...] al ng reaction 00 Center Products s SHELLFIS Allergy Active Diarrhea [facility] H 5-29 CONTAINI 00:00: NG 00 PRODUCTS penicill penicill Active Memori a ins<sup> ins<sup> l 1</sup> 1</sup> Jimmy iodine<s iodine<s Active Memori a up>2</lee up>2</lee l p> p> Jimmy Family History Family Member Diagnosis Comments Start Date Stop Date Source Natural father Heart disease [facility] Natural mother COPD [facility] Social History Social Habit Start Date Stop Date Quantity Comments Source Exposure to 2021-11-29 2021-12-[address] [facility] SARS-CoV-2 00:00:00 16:30:00 [facility] Center (event) Alcohol intake 2021-06-13 2021-06-13 Current [facility] 00:00:00 00:00:00 non-drinker of Hospital alcohol (finding) Social History 2015-01-31 2015-01-31 [facility] chelsea 21:49:01 21:49:01 Tobacco use and 2014-07-09 2014-07-[address] [facility] Marli guillaume exposure 00:00:00 00:00:00 [facility] Center Sex Assigned At [birth year] [facility] 00:00:00 00:00:00 Hospital Smoking Status Start Date Stop Date Source Tobacco smoking status [facility] [place] Tobacco smoking consumption [facility] Medications Ordered Filled Start Stop Current Ordering Indication Dosage Frequency Signature Comments Components Source Medication Medication Date Date Medication? Clinician (SIG) Name Name tramadol 50 2021-02 Yes 50 mg = 1 M emoria mg oral 1-11 tab, PO, l tablet 21:50: Q12H, PRN Carlton n 00 Pain Score 7-10, # 12 tab, 0 Refill(s), Pharmacy: [facility] [id number], 172.72, cm, 12/16/21 5:50:00 CDT, Height, 86.6, kg, 12/16/21 5:50:00 CDT, Weight tramadol 50 2021-02 Yes 50 mg = 1 M emoria mg oral 1-11 tab, PO, l tablet 21:50: Q12H, PRN [place] n 00 Pain Score 7-10, # 12 tab, 0 Refill(s), Pharmacy: [facility] [id number], 172.72, cm, 12/16/21 5:50:00 CDT, Height, 86.6, kg, 12/16/21 5:50:00 CDT, Weight hydrocortis 2021-02 Yes 25 mg = 1 M emoria one 25 mg 1-11 supp, CT, l rectal 21:49: BID, PRN [place] suppository 00 Hemorrhoid s, # 24 supp, 0 Refill(s), Pharmacy: [facility] [id number], 172.72, cm, 12/16/21 5:50:00 CDT, Height, 86.6, kg, 12/16/21 5:50:00 CDT, Weight polyethylen 2021-02 Yes 17 gm, PO, Memoria e glycol 1-11 BID, # 255 l 3350 oral 21:49: gm, 0 Jimmy powder for 00 Refill(s), reconstitut Pharmacy: ion [facility] [id number], 172.72, cm, 12/16/21 5:50:00 CDT, Height, 86.6, kg, 12/16/21 5:50:00 CDT, Weight hydrocortis 2021-02 Yes 25 mg = 1 M emoria one 25 mg 1-11 supp, CT, l rectal 21:49: BID, PRN Jimmy suppository 00 Hemorrhoid s, # 24 supp, 0 Refill(s), Pharmacy: [facility] [id number], 172.72, cm, 12/16/21 5:50:00 CDT, Height, 86.6, kg, 12/16/21 5:50:00 CDT, Weight polyethylen 2021-02 Yes 17 gm, PO, Memoria e glycol 1-11 BID, # 255 l 3350 oral 21:49: gm, 0 [place] powder for 00 Refill(s), reconstitut Pharmacy: [facility] [id number], 172.72, cm, 12/16/21 5:50:00 CDT, Height, 86.6, kg, 12/16/21 5:50:00 CDT, Weight Flagyl 500 2021-02 Yes 500 mg = 1 M emoria mg oral 1-11 tab, PO, l tablet 21:48: TID, X 8 Jimmy 00 day, # 24 tab, 0 Refill(s), Pharmacy: [facility] [id number], 172.72, cm, 12/16/21 5:50:00 CDT, Height, 86.6, kg, 12/16/21 5:50:00 CDT, Weight docusate 2021-02 Yes 100 mg = 1 Mem oria sodium 100 1-11 cap, PO, l mg oral 21:48: Daily, # [place]ton n capsule 00 30 cap, 0 Refill(s), Pharmacy: [facility] [id number], 172.72, cm, 12/16/21 5:50:00 CDT, Height, 86.6, kg, 12/16/21 5:50:00 CDT, Weight Flagyl 500 2021-02 Yes 500 mg = 1 M emoria mg oral 1-11 tab, PO, l tablet 21:48: TID, X 8 Jimmy 00 day, # 24 tab, 0 Refill(s), Pharmacy: [facility] [id number], 172.72, cm, 12/16/21 5:50:00 CDT, Height, 86.6, kg, 12/16/21 5:50:00 CDT, Weight docusate 2021-02 Yes 100 mg = 1 Mem oria sodium 100 1-11 cap, PO, l mg oral 21:48: Daily, # [place] n capsule 00 30 cap, 0 Refill(s), Pharmacy: [facility] [id number], 172.72, cm, 12/16/21 5:50:00 CDT, Height, 86.6, kg, 12/16/21 5:50:00 CDT, Weight ciprofloxac 2021-02 Yes 500 mg = 1 Memoria in 500 mg 1-11 tab, PO, l oral tablet 21:46: Daily, X 8 [place] 00 day, # 8 tab, 0 Refill(s), Pharmacy: [facility] [id number], 172.72, cm, 12/16/21 5:50:00 CDT, Height, 86.6, kg, 12/16/21 5:50:00 CDT, Weight ciprofloxac 2021-02 Yes 500 mg = 1 Memoria in 500 mg 1-11 tab, PO, l oral tablet 21:46: Daily, X 8 Jimmy 00 day, # 8 tab, 0 Refill(s), Pharmacy: [facility] [id number], 172.72, cm, 12/16/21 5:50:00 CDT, Height, 86.6, kg, 12/16/21 5:50:00 CDT, Weight prednisoLON 2021-02 Yes 1 drp, Andres dora E sodium 1-09 LEFT EYE, l phosphate 22:31: BID, 0 [place] n ophthalmic 00 Refill(s) 1% solution moxifloxaci 2021-02 Yes 1 drp, Andres dora n 0.5% 1-09 LEFT EYE, l ophthalmic 22:31: BID, 0 Mary nn solution 00 Refill(s) bromfenac 2021-02 Yes 1 drp, Memori a 0.075% 1-09 LEFT EYE, l ophthalmic 22:31: BID, 0 Mary nn solution 00 Refill(s) prednisoLON 2021-02 Yes 1 drp, Andres dora [...] timolol 2021-02 Yes 1 drp, Memoria maleate 02-19 LEFT EYE, l 0.5% 22:17: BID, 0 Jimmy preservativ 00 Refill(s) e-free ophthalmic solution timolol 2021-02 Yes 1 drp, Memoria maleate 02-19 LEFT EYE, l 0.5% 22:17: BID, 0 [place] preservativ 00 Refill(s) e-free ophthalmic solution COLESEVELAM [...] [address] (ZOLOFT) 50 01 by mouth. Coco es MG tablet 10:59: [...] 60 MG 10:59: daily. Medical capsule 52 [place] coenzyme 2021-02 Yes 1 po qd [facility] [...] [address] (ZOLOFT) 50 1-01 by mouth. Coco es MG tablet 10:59: [...] r mouth daily. metroNIDAZO 2021-02- No 500mg [id number] Take [address] [facility] [facility] (FLAGYL) 02-11 [id number] [facility] 500 MG 00:00: 23:59 3D (500 mg Medical tablet 00 :00 total) by Center mouth 3 (three) times daily for 7 days. metroNIDAZO 2021-02- Yes 500mg [id number] Take [address] [facility] [facility] (FLAGYL) 02-11 [id number] tablet [facility] 500 MG 00:00: 23:59 3D (500 mg Medical tablet 00 :00 total) by Center mouth 3 (three) times daily for 7 days. metroNIDAZO 2021-02- Yes 500mg Q.[id number] Take [address] [facility] (FLAGYL) 02-11 [id number] tablet [facility] 500 MG 00:00: 23:59 3D (500 mg Medical tablet 00 :00 total) by Center mouth 3 (three) times daily for 7 days. metroNIDAZO 2021-02- Yes 500mg Q.[id number] Take [address] [facility] (FLAGYL) 02-11 [id number] tablet [facility] 500 MG 00:00: 23:59 3D (500 mg Medical tablet 00 :00 total) by Center mouth 3 (three) times daily for 7 days. metroNIDAZO 2021-02- No 500mg Q.[id number] Take [address] [facility] (FLAGYL) 02-11 [id number] tablet [facility] 500 MG 00:00: 23:59 3D (500 mg Medical tablet 00 :00 total) by Center mouth 3 (three) times daily for 7 days. metroNIDAZO 2021-02- No 500mg Q.[id number] Take [address] [facility] (FLAGYL) 02-11 [id number] tablet [facility] 500 MG 00:00: 23:59 3D (500 mg Medical tablet 00 :00 total) by Center mouth 3 (three) times daily for 7 days. zolpidem 2021-02- No 10mg Take [address] (AMBIEN) 10 0-31 10-29 by mouth. Marli kes mg tablet 21:40: 00:00 Medical 40 :00 [place] zolpidem 2021-02- No 10mg Take [address] (AMBIEN) 10 0-31 10-29 by mouth. Marli kes mg tablet 21:40: 00:00 Medical 40 :00 [place] zolpidem 2021-02- No 10mg Take [address] (AMBIEN) 10 0-31 10-29 by mouth. Marli kes mg tablet 21:40: 00:00 Medical 40 :00 [place] zolpidem 2021-02- No 10mg Take [address] (AMBIEN) 10 0-31 10-29 by mouth. Marli kes mg tablet 21:40: 00:00 Medical 40 :00 [place] zolpidem 2021-02- No 10mg Take [address] (AMBIEN) 10 0-31 10-29 by mouth. Marli kes mg tablet 21:40: 00:00 Medical 40 :00 [place] zolpidem 2021-02- No 10mg Take [address] (AMBIEN) 10 0-31 10-29 by mouth. Marli kes mg tablet 21:40: 00:00 Medical 40 :00 [place] NIFEdipine 2021-02- No 60mg QD Take 60 [...] 12 :00 every l tablet evening. gabapentin 2022-0 Yes 300mg QD Take 300 [facility] (NEURONTIN) 5-[address] 300 mg 15:42: mouth Hospita capsule 01 nightly. l traZODone 2-0 Yes 150mg QD Take 150 Met [facility] (DESYREL) 5-[address] 150 MG 15:42: mouth Hospita tablet 01 nightly. l zolpidem 2-0 Yes 10mg QD Take 10 mg [facility] (AMBIEN) 10 5-[address] mg tablet 15:42: nightly. Hosp omega 01 NOTE: l Patient must have 10mg dose. Please order 10mg. gabapentin 2-0 Yes 300mg QD Take 300 Me [facility]odi (NEURONTIN) 5-[address] 300 mg 15:42: mouth Hospita capsule 01 nightly. l traZODone 2-0 Yes 150mg QD Take 150 Met hodi [...] mouth Hospita tablet 01 nightly. l zolpidem 2-0 Yes 10mg QD Take 10 mg Met [facility] (AMBIEN) 10 5-[address] mg tablet 15:42: nightly. Hosp omega 01 NOTE: l Patient must have 10mg dose. Please order 10mg. gabapentin 2-0 Yes 300mg QD Take 300 Me [facility] (NEURONTIN) 5-[address] 300 mg 15:42: mouth Hospita capsule 01 nightly. l traZODone 2-0 Yes 150mg QD Take 150 [facility] (DESYREL) 5-[address] 150 MG 15:42: mouth Hospita tablet 01 nightly. l zolpidem 2022-0 Yes 10mg QD Take 10 mg [facility] (AMBIEN) 10 5-[address] mg tablet 15:42: nightly. Hosp omega 01 NOTE: l Patient must have 10mg dose. Please order 10mg. gabapentin 2021-0 Yes 300mg QD Take 300 [facility] (NEURONTIN) 5-[address] 300 mg 15:42: mouth Hospita capsule 01 nightly. l traZODone 2-0 Yes 150mg QD Take 150 Met hodi [...] enteric 01 :00 l coated tablet losartan 2021-2021- No 50mg Q.5D Take 50 mg Me thodi (COZAAR) 50 5- 05-05 by mouth 2 s t MG tablet 15:42: 00:00 (two) Hospit a 01 :00 times a l day. aspirin 2021-2021- No 81mg QD Take 81 mg Met hodi (ECOTRIN) 5-06 05-[address] 81 MG 15:42: 00:00 daily. [facility]ospita enteric 01 :00 l coated tablet losartan 2021-0 2022- No 50mg Q.5D Take 50 mg Me thodi (COZAAR) 50 5-06 05-05 by mouth 2 s t MG tablet 15:42: 00:00 (two) Hospit a 01 :00 times a l day. aspirin 2021-0 2022- No 81mg QD Take 81 mg Met hodi (ECOTRIN) 5-06 05-[address] 81 MG 15:42: 00:00 daily. [facility]ospita enteric 01 :00 l coated tablet losartan 2021-0 2- No 50mg Q.5D Take 50 mg Me thodi (COZAAR) 50 5-06 05-05 by mouth 2 s t MG tablet 15:42: 00:00 (two) Hospit a 01 :00 times a l day. aspirin 2021-0 2- No 81mg QD Take 81 mg Met [facility] (ECOTRIN) 5-06 05-[address] 81 MG 15:42: 00:00 daily. Hospita enteric 01 :00 l coated tablet losartan 2021-0 2021- No 50mg Q.5D Take 50 mg Me thodi (COZAAR) 50 5-06 05-05 by mouth 2 s t MG tablet 15:42: 00:00 (two) Hospit a 01 :00 times a l day. aspirin 2021-0 2- No 81mg QD Take 81 mg [facility] (ECOTRIN) 5-06 05-[address] 81 MG 15:42: 00:00 daily. [facility]ospita enteric 01 :00 l coated tablet losartan 2021-0 2- No 50mg Q.5D Take 50 mg Me thodi (COZAAR) 50 5-06 05-05 by mouth 2 s t MG tablet 15:42: 00:00 (two) Hospit a 01 :00 times a l day. aspirin 2021-0 2- No 81mg QD Take 81 mg [facility] (ECOTRIN) 5-06 05-[address] 81 MG 15:42: 00:00 daily. [facility]ospita enteric 01 :00 l coated tablet losartan 2021-0 2- No 50mg Q.5D Take 50 mg Me thodi (COZAAR) 50 5-06 05-05 by mouth 2 s t MG tablet 15:42: 00:00 (two) Hospit a 01 :00 times a l day. colesevelam No 2{packa Q24H Take 2 [facility] 3.75 gram 5-05 05-05 ge} Packages st powder in 15:42: 00:00 by mouth Hos imelda packet 52 :00 daily as l needed. Large fatty meal diphenhydrA 25mg QD Take 25 mg [facility] MINE 5-05 05-[address] (BENADRYL) 15:42: 00:00 nightly as Hospita 25 mg 52 :00 needed for l tablet sleep. colesevelam No 2{packa Q24H Take 2 [facility] 3.75 gram 5-05 05-05 ge} Packages st powder in 15:42: 00:00 by mouth Hos imelda packet 52 :00 daily as l needed. Large fatty meal diphenhydrA 25mg QD Take 25 mg [facility] MINE 5-05 05-[address] (BENADRYL) 15:42: 00:00 nightly as Hospita 25 mg 52 :00 needed for l tablet sleep. colesevelam No 2{packa Q24H Take 2 [facility] 3.75 gram 5-05 05-05 ge} Packages st powder in 15:42: 00:00 by mouth Hos imelda packet 52 :00 daily as l needed. Large fatty meal diphenhydrA 25mg QD Take 25 mg [facility] MINE 5-05 05-[address] (BENADRYL) 15:42: 00:00 nightly as Hospita 25 mg 52 :00 needed for l tablet sleep. colesevelam No 2{packa Q24H Take 2 [facility] 3.75 gram 5-05 05-05 ge} Packages st powder in 15:42: 00:00 by mouth Hos imelda packet 52 :00 daily as l needed. Large fatty meal diphenhydrA 25mg QD Take 25 mg [facility] MINE 5-05 05-[address] (BENADRYL) 15:42: 00:00 nightly as Hospita 25 mg 52 :00 needed for l tablet sleep. colesevelam 2022-0 2022- No 2{packa Q24H Take 2 [facility] 3.75 [...] omega 49 needed l (fluid overload). folic 2022-0 Yes 1{capsu Take 1 [facility] acid/vit B [...] omega 49 needed l (fluid overload). folic 0 Yes 1{capsu Take 1 [facility] acid/vit B 5-05 le} capsule by st complex and 15:42: mouth Hospi ta C 49 Every l (DIALYVITE Saturday, ORAL) Saturday, and Saturday. After dialysis metoprolol 0 Yes 25mg QD Take 25 mg M ethodi tartrate 5-[address] (LOPRESSOR) 15:42: every Hospi ta 25 mg 49 morning. l tablet sertraline 2022-0 Yes 50mg QD Take 50 mg M [...] Q.5D Take 3 Method i (COZAAR) 25 06-[address] MG tablet 00:00: 04:59 (75 mg Hospi ta 00 :00 total) by l mouth 2 (two) times a day for 30 days. metroNIDAZO 2021- No [id number] 500mg Q.[id number] Take 1 [facility] LE (FLAGYL) 06-[id number] 500 MG 00:00: 04:59 3D (500 mg Hospita tablet 00 :00 total) by l mouth 3 (three) times a day for 8 days. ciprofloxac 2021- No [id number] 500mg Q.5D Take 1 [facility] in (CIPRO) 06-[address] 500 MG 00:00: 04:59 (500 mg Hospita tablet 00 :00 total) by l mouth 2 (two) times a day for 8 days. metroNIDAZO 2021- No [id number] 500mg Q.42640187 Take 1 [facility] LE (FLAGYL) 06-[id number] 500 MG 00:00: 04:59 3D (500 mg Hospita tablet 00 :00 total) by l mouth 3 (three) times a day for 8 days. ciprofloxac 2021- No [id number] 500mg Q.5D Take 1 [facility] in (CIPRO) 06-[address] 500 MG 00:00: 04:59 (500 mg Hospita tablet 00 :00 total) by l mouth 2 (two) times a day for 8 days. metroNIDAZO 2021- No [id number] 500mg Q.07912562 Take 1 [facility] LE (FLAGYL) 06-[id number] 500 MG 00:00: 04:59 3D (500 mg Hospita tablet 00 :00 total) by l mouth 3 (three) times a day for 8 days. ciprofloxac 2021- No [id number] 500mg Q.5D Take 1 [facility] in (CIPRO) 06-[address] 500 MG 00:00: 04:59 (500 mg Hospita tablet 00 :00 total) by l mouth 2 (two) times a day for 8 days. metroNIDAZO 2021- No [id number] 500mg Q.34263041 Take 1 [facility] LE (FLAGYL) 06-[id number] 500 MG 00:00: 04:59 3D (500 mg Hospita tablet 00 :00 total) by l mouth 3 (three) times a day for 8 days. ciprofloxac 2021- No [id number] 500mg Q.5D Take 1 [facility] in (CIPRO) 06-[address] 500 MG 00:00: 04:59 (500 mg Hospita tablet 00 :00 total) by l mouth 2 (two) times a day for 8 days. metroNIDAZO 2021- No [id number] 500mg Q.64143905 Take 1 [facility] LE (FLAGYL) 06-[id number] 500 MG 00:00: 04:59 3D (500 mg Hospita tablet 00 :00 total) by l mouth 3 (three) times a day for 8 days. ciprofloxac 2021- No [id number] 500mg Q.5D Take 1 [facility] in (CIPRO) 06-[address] 500 MG 00:00: 04:59 (500 mg Hospita tablet 00 :00 total) by l mouth 2 (two) times a day for 8 days. metroNIDAZO 2021- No [id number] 500mg Q.36673659 Take 1 [facility] LE (FLAGYL) 06-[id number] 500 MG 00:00: 04:59 3D (500 mg Hospita tablet 00 :00 total) by l mouth 3 (three) times a day for 8 days. ciprofloxac 2021- No [id number] 500mg Q.5D Take 1 [facility] in (CIPRO) [...] sleep, # 30 tab, 0 Refill(s), Pharmacy: [facility] [id number], 170.18, cm, 06/22/19 13:48:00 CDT, Height, 86.818, kg, 06/22/19 13:48:00 CDT, Weight zolpidem 2020-02 Yes 10 mg = 1 M emoria mg oral 1-18 tab, PO, l tablet 20:08: Bedtime, [place] 00 PRN for sleep, # 30 tab, 0 Refill(s), Pharmacy: [facility] [id number], 170.18, cm, 06/22/19 13:48:00 CDT, Height, 86.818, kg, 06/22/19 13:48:00 CDT, Weight Trazodone 2020-02 Yes = 1 tab, Andres dora Hydrochlori 0-28 PO, l de 50 MG 17:53: Bedtime, # Her garcia Oral Tablet 00 90 tab, 1 Refill(s), Pharmacy: [facility] [id number], 170.18, cm, 06/22/19 13:48:00 CDT, Height, 86.818, kg, 06/22/19 13:48:00 CDT, Weight trazodone 2020-02 Yes = 1 tab, Andres dora 50 mg oral 0-28 PO, l tablet 17:53: Bedtime, # Mary nn 00 90 tab, 1 Refill(s), Pharmacy: [facility] [id number], 170.18, cm, 06/22/19 13:48:00 CDT, Height, 86.818, kg, 06/22/19 13:48:00 CDT, Weight Trazodone 2020-02 Yes = 1 tab, Andres dora Hydrochlori 0-28 PO, l de 50 MG 17:53: Bedtime, # Her garcia Oral Tablet 00 90 tab, 1 Refill(s), Pharmacy: [facility] [id number], 170.18, cm, 06/22/19 13:48:00 CDT, Height, 86.818, kg, 06/22/19 13:48:00 CDT, Weight trazodone 2020-02 Yes = 1 tab, Andres dora 50 mg oral 0-28 PO, l tablet 17:53: Bedtime, # Mary nn 00 90 tab, 1 Refill(s), Pharmacy: [facility] [id number], 170.18, cm, 06/22/19 13:48:00 CDT, Height, 86.818, kg, 06/22/19 13:48:00 CDT, Weight zolpidem 10 2020-02 Yes 10 mg = 1 M emoria mg oral 0-01 tab, PO, l tablet 22:04: Bedtime, [place] 00 PRN for sleep, # 30 tab, 0 Refill(s), Pharmacy: [facility] [id number], 170.18, cm, 06/22/19 13:48:00 CDT, Height, 86.818, kg, 06/22/19 13:48:00 CDT, Weight zolpidem 10 1 Yes 10 mg = 1 M emoria mg oral 0-01 tab, PO, l tablet 22:04: Bedtime, Jimmy 00 PRN for sleep, # 30 tab, 0 Refill(s), Pharmacy: [facility] [id number], 170.18, cm, 06/22/19 13:48:00 CDT, Height, 86.818, kg, 06/22/19 13:48:00 CDT, Weight metoprolol 2020-0 Yes See Memoria tartrate 25 8-19 Instructio l mg oral 16:56: ns, 1 tab Mary nn tablet 00 in the am and 0.5 in the pm, # 135 ea, 3 Refill(s), Pharmacy: [facility] [id number], 170.18, cm, 06/22/19 13:48:00 CDT, Height, 86.818, kg, 06/22/19 13:48:00 CDT, Weight metoprolol 2020-0 Yes See Memoria tartrate 25 8-19 Instructio l mg oral 16:56: ns, 1 tab Mary nn tablet 00 in the am and 0.5 in the pm, # 135 ea, 3 Refill(s), Pharmacy: [facility] [id number], 170.18, cm, 06/22/19 13:48:00 CDT, Height, 86.818, kg, 06/22/19 13:48:00 CDT, Weight tamsulosin 2020-0 Yes = 1 cap, Mem oria 0.4 mg oral 7-28 PO, Daily, l capsule 15:55: # 90 [place] 00 unknown unit, 3 Refill(s), Pharmacy: [facility] [id number], 170.18, cm, 06/22/19 13:48:00 CDT, Height, 86.818, kg, 06/22/19 13:48:00 CDT, Weight tamsulosin 2020-0 Yes = 1 cap, Mem oria 0.4 mg oral 7-28 PO, Daily, l capsule 15:55: # 90 [place] 00 unknown unit, 3 Refill(s), Pharmacy: [facility] [id number], 170.18, cm, 06/22/19 13:48:00 CDT, Height, 86.818, kg, 06/22/19 13:48:00 CDT, Weight pantoprazol 2020-0 Yes = 1 tab, Me moria e 40 mg 7-28 PO, Daily, l oral 15:53: # 90 tab, [place] enteric 00 3 coated Refill(s), tablet Pharmacy: [facility] [id number], 170.18, cm, 06/22/19 13:48:00 CDT, Height, 86.818, kg, 06/22/19 13:48:00 CDT, Weight pantoprazol 2020-0 Yes = 1 tab, Me moria e 40 mg 7-28 PO, Daily, l oral 15:53: # 90 tab, [place] enteric 00 3 coated Refill(s), tablet Pharmacy: [facility] [id number], 170.18, cm, 06/22/19 13:48:00 CDT, Height, 86.818, kg, 06/22/19 13:48:00 CDT, Weight sertraline 2020-0 Yes 50 mg = 1 Me moria 50 mg oral 7-28 tab, PO, l tablet 15:52: Daily, # Jimmy 00 90 tab, 3 Refill(s), Pharmacy: [facility] [id number], 170.18, cm, 06/22/19 13:48:00 CDT, Height, 86.818, kg, 06/22/19 13:48:00 CDT, Weight sertraline 2020-0 Yes 50 mg = 1 Me moria 50 mg oral 7-28 tab, PO, l tablet 15:52: Daily, # Jimmy 00 90 tab, 3 Refill(s), Pharmacy: [facility] [id number], 170.18, cm, 06/22/19 13:48:00 CDT, Height, 86.818, kg, 06/22/19 13:48:00 CDT, Weight PreserVisio 2020-0 Yes 0 Memori a n AREDS 2 7-28 Refill(s) l 15:34: [place] 00 PreserVisio 2020-0 Yes 0 Memori a n AREDS 2 7- Refill(s) l 15:34: Jimmy 00 gabapentin Yes 300 mg = 1 M emoria 300 mg oral 09-07 cap, PO, l capsule 15:32: TID, 0 Refill(s) gabapentin Yes 300 mg = 1 M emoria 300 mg oral 7 cap, PO, l capsule 15:32: TID, 0 Refill(s) furosemide Yes 40 mg = 1 Me moria 40 mg oral - tab, PO, l tablet 15:30: Daily, 0 Refill(s) furosemide Yes 40 mg = 1 Me moria 40 mg oral 7- tab, PO, l tablet 15:30: Daily, 0 Refill(s) aspirin 81 Yes 81 mg = 1 Me moria mg tablet, - tab, PO, l enteric 15:29: Daily, # [place] n coated 00 90 tab, 3 Refill(s) aspirin 81 Yes 81 mg = 1 Me moria mg tablet, 09-07 tab, PO, l enteric 15:29: Daily, # [...] enteric 37 :00 l coated tablet traZODone 2020-0 2020- No 100mg QD Take 100 Me thodi (DESYREL) 2-13 02-[address] 100 MG 17:35: 00:00 mouth Hospita tablet 37 :00 nightly. l colesevelam Yes Take by Met hodi (WELCHOL) 2-[address] 3.75 gram 17:35: Welchol Hospi ta powder in 31 (ONLY) l packet Take 2 - 3.75 gram packets per day after AM & PM FLUTICASONE 2020-0 Yes Q.5D into each M ethodi PROPIONATE 2-[address] NASL 17:35: (two) Hospita 31 times a l day. [place] twice daily diphenhydrA 0 Yes 25mg Take [...] 17:35: daily. Hospit a 31 l folic 2020-0 Yes 1{capsu Take 1 Methodi acid/vit B 2-13 le} capsule by st complex and 17:35: mouth Hospi ta C 31 Every l (DIALYVITE Saturday, ORAL) Saturday, and Saturday. After dialysis acetaminoph 2020-0 Yes 2000mg QD Take 2,000 Methodi en 2-[address] (TYLENOL) 17:35: mouth Hospita 500 MG 31 daily. l tablet tamsulosin 0 Yes .4mg QD Take 0.4 Met hodi (FLOMAX) 2-[address] 0.4 mg 17:35: mouth Hospita capsule 31 every l morning. clopidogreL 2020-0 Yes 75mg QD Take 75 mg [facility]i (PLAVIX) 75 2-[address] mg tablet 17:35: every Hospita 31 morning. l vit A/vit 2020-0 Yes 1{tbl} Q.5D Take 1 Meth herminia [...] No 81mg Q.5D Take 1 [facility] (ECOTRIN) 03-2515 tablet (81 st 81 MG 00:00: 04:59 mg total) Hospit a enteric 00 :00 by mouth 2 l coated (two) tablet times a day for 30 days. traZODone 2020- No 150mg QD Take 1 Meth herminia (DESYREL) 03-[address] 150 MG 00:00: 04:59 (150 [...] DAILY Medicin e Multiple 2019-02 Yes Qd [facility] [place] Vitamins-Mi 0-08 [employer] n[employer] (EYE 16:05: of [...] zolpidem 2019-02 Yes 10mg Take 10 mg Dooly taylor (AMBIEN) 5 0-08 by mouth Colle ge MG tablet 16:05: nightly as of 09 needed for Medicin Sleep. e Sulfamethox 2019-02 Yes Take by Dooly taylor azole-Trime 0-08 mouth [facility] thoprim 16:05: [...] ylor INE ER OR 0-08 11-18 mouth [place] 16:04: 00:00 daily. of 59 :00 Medicin e Coenzyme 2020-1 2020- No 1 po qd [facility] Q10 100 MG 011-18 [place] CHEW 16:04: 00:00 of 50 :00 Medicin e Niacin CR 2020- 2020- No 1 po qd Bayl or 500 MG CPCR 0-11-18 [place] 16:03: 00:00 of 53 :00 Medicin e Multiple 2019- Yes Qd [facility] [place] Vitamins-Mi 008 [place] nerals (EYE 11:05: of VITAMINS 09 Medicin OR) e Tamsulosin 2019-02 Yes 4mg 4 mg [facility] [place] HCl 0.4 MG 0-08 daily. Qd Natan [...] zolpidem 2019-02 Yes 10mg Take 10 mg Dooly taylor (AMBIEN) 5 0-08 by mouth Colle ge MG tablet 11:05: nightly as of needed for Medicin Sleep. e Sulfamethox 2019-02 Yes Take by Dooly taylor azole-Trime 0-08 mouth [facility] thoprim 11:05: daily. of (BACTRIM 09 Medicin OR) e furosemide 2019-02 Yes 40mg Take 40 mg B aylor (LASIX) 40 0-08 by mouth Colle ge MG tablet 11:05: daily. of 09 Medicin e gabapentin 2019-02 Yes 100mg Take 100 Ba [facility]lor (NEURONTIN) 0-08 mg by [place] 100 MG 11:05: mouth two of capsule 09 times Medicin daily. e Colesevelam Yes TAKE Dooly taylor HCl 3.75 g 11-03 DIRECTED Colle ge PACK 00:00: TWICE of 00 DAILY Medicin e Colesevelam Yes TAKE Dooly taylor HCl 3.75 g 11-03 DIRECTED Colle ge PACK 00:00: TWICE of 00 DAILY Medicin e sulfamethox 2020- No 1{tbl} QD Take 1 M ethodi azole-trime - 02-[address] thoprim 00:00: 00:00 mouth Hospita (Bactrim) 00 :00 daily. l 400-80 mg per tablet sulfamethox No TAKE ONE M ethodi azole-trime -18 - TABLET BY st thoprim 00:00: 00:00 MOUTH Hospita (BACTRIM 00 :00 DAILY l DS) 800-160 mg per tablet metoprolol Yes TAKE ONE Dooly taylor (LOPRESSOR) 1-24 TABLET BY Col lege 50 MG 00:00: MOUTH of tablet 00 TWICE A Medicin DAY e metoprolol Yes TAKE ONE Dooly taylor (LOPRESSOR) 1-24 TABLET BY Col lege [...] Q10 100 mg 2-15 [facility] 17:11: [address] niacin 500 2016-02 Yes [address] [facility] CR 2-15 [facility] capsule 17:11: [address] COLESEVELAM 2016-02 Yes 3.75g Take 3.[address] [facility] [facility] HCL 2-15 g by mouth [facility] (WELCHOL 17:11: 2 (two) Medica l ORAL) 46 times Center daily with breakfast and dinner . coenzyme 2016-02 Yes [address] [facility] Q10 100 mg 2-15 [facility] 17:11: [address] [facility] 2016-02 Yes [address] [facility] MG CR 2-15 [facility] capsule 17:11: [address] zolpidem 2016-02 Yes 10mg Take 10 [...] (OSM) 24 hr 17 Center tablet losartan 2016 2020- No TAKE ONE Bayl or (COZAAR) 5-21 10-08 TABLET BY Colle ge 100 MG 00:00: 00:00 MOUTH of tablet 00 :00 DAILY Medicin e tamsulosin 2015-0 Yes .4mg 0.4 mg . [...] 24 hr 00 :00 Center capsule pantoprazol 2014-0 Yes 40mg QD Take 40 mg Methodi e 5-[address] (PROTONIX) 00:00: every Hospit a 40 MG EC 00 morning. l tablet pantoprazol 2014-0 Yes 40mg QD Take [...] 00:00: Medical 40 MG 00 Center tablet metoprolol 2015-0 Yes Q.5D 2 (two) [facility] [...] Medical tablet 00 daily . Center clopidogrel Yes QD daily . [facility] [...] Medical tablet 00 daily . Center clopidogrel 0 Yes QD daily . [facility] [...] Medical tablet 00 daily . Center clopidogrel 0 Yes QD daily . [facility] [...] daily . Medical tablet 00 Center nisoldipine 0 Yes 34mg QD 34 mg [facility] (SULAR) 34 5-12 daily . [facility] MG 24 hr 00:00: Medical tablet 00 Center clopidogrel 2015-0 Yes QD daily [...] Medical tablet 00 daily . Center clopidogrel 2014-0 Yes QD daily . [...] 00:00: times Medical tablet 00 daily . [place] fluticasone Yes 2{spray Q.5D [address] [facility] (FLONASE) 5-12 } by Nasal [facility] 50 00:00: route 2 Medical mcg/actuati 00 (two) Center on nasal times spray daily . nisoldipine No 34mg QD [address] [facility] (SULAR) 34 5-12 10-29 daily . [facility] MG 24 hr 00:00: 00:00 Medical tablet 00 :00 [place] nisoldipine 2021- No 34mg QD [address] [facility] [facility] (SULAR) 34 5-12 10-29 daily . [facility] MG 24 hr 00:00: 00:00 Medical tablet 00 :00 [place] nisoldipine 2021- No 34mg QD [address] (SULAR) 34 5-12 10-29 daily . [facility] MG 24 hr 00:00: 00:00 Medical tablet 00 :00 [place] nisoldipine 2021- No 34mg QD [address] (SULAR) 34 5-12 10-29 daily . [facility] MG 24 hr 00:00: 00:00 Medical tablet 00 :00 [place] nisoldipine 2021- No 34mg QD [address] (SULAR) 34 5-12 10-29 daily . [facility] MG 24 hr 00:00: 00:00 Medical tablet 00 :00 [place] nisoldipine 2021- No 34mg QD [address] (SULAR) 34 5-12 10-29 daily . [facility] MG 24 hr 00:00: 00:00 Medical tablet 00 :00 [place] metoprolol No 25mg QD Take 25 mg [facility] tartrate 06-22-[address] (LOPRESSOR) 00:00: 00:00 daily. Hos imelda 50 MG 00 :00 l tablet CLOPIDOGREL Yes TAKE 1 Andres dora BISULFATE 1-08 TABLET BY l 75 MG TABS 10:35: MOUTH [place] n 00 DAILY NISOLDIPINE Yes TAKE 1 Andres dora ER 34 MG 1-08 TABLET BY l [id number] 10:35: MOUTH Jimmy 00 DAILY LOSARTAN Yes TAKE 1 Memoria POTASSIUM 1-08 TABLET BY l 100 MG TABS 10:35: MOUTH Mary nn 00 DAILY CYMBALTA 60 Yes TAKE 1 Andres dora MG CPEP 1-08 TABLET BY l 10:35: MOUTH Jimmy DAILY PANTOPRAZOL Yes TAKE 1 Andres dora E SODIUM 40 1-08 TABLET BY l MG TBEC 10:35: MOUTH Jimmy DAILY CLOPIDOGREL Yes TAKE 1 Andres dora BISULFATE 1-08 TABLET BY l 75 MG TABS 10:35: MOUTH [place] n 00 DAILY NISOLDIPINE Yes TAKE 1 Andres dora ER 34 MG 1-08 TABLET BY l [id number] 10:35: MOUTH Jimmy DAILY LOSARTAN Yes TAKE 1 Memoria POTASSIUM 1-08 TABLET BY l 100 MG TABS 10:35: MOUTH Mary nn 00 DAILY CYMBALTA 60 Yes TAKE 1 Andres dora MG CPEP 1-08 TABLET BY l 10:35: MOUTH [place] DAILY PANTOPRAZOL Yes TAKE 1 Andres dora [...] 2-13 TABLET BY l PACK 14:45: MOUTH [place] 00 DAILY CYMBALTA 60 2012-02 Yes TAKE 1 Andres dora MG CPEP 2-13 TABLET BY l 14:45: MOUTH Jimmy 00 DAILY PANTOPRAZOL 2012-02 Yes TAKE 1 Andres dora E SODIUM 40 2-13 TABLET BY l MG TBEC 14:45: MOUTH Jimmy 00 DAILY METOPROLOL 2012-02 Yes TAKE 1 Memor ia TARTRATE 50 2-13 TABLET BY l MG TABS 14:45: MOUTH [place] 00 DAILY LOSARTAN 2012-02 Yes TAKE 1 Memoria POTASSIUM 2-13 TABLET BY l 100 MG TABS 14:45: MOUTH Mary nn 00 DAILY WELCHOL 2012-02 Yes TAKE 1 Memoria 3.75 GM 2-13 TABLET BY l PACK 14:45: MOUTH Jimmy 00 DAILY CYMBALTA 60 2012-02 Yes TAKE 1 Andres dora MG CPEP 2-13 TABLET BY l 14:45: MOUTH [place] 00 DAILY PANTOPRAZOL 2012-02 Yes TAKE 1 Andres dora E SODIUM 40 2-13 TABLET BY l MG TBEC 14:45: MOUTH [place] 00 DAILY PLAVIX 75 2012-02 No TAKE 1 Memori a MG TABS 2-13 TABLET BY l 00:00: MOUTH Jimmy 00 DAILY OCUVITE EYE 2012-02 Yes Memori a + MULTI 2-13 l TABS 00:00: [place] 00 COQ10 CAPS 2012-02 Yes Memoria 2-13 l 00:00: [place] 00 ASPIRIN 81 2012-02 Yes Memoria MG TABS 2-13 l 00:00: Jimmy 00 FLOMAX 0.4 2012-02 Yes one every Me moria MG CAPS 2-13 evening. l 00:00: [place] 00 LUNESTA 3 2012-02 Yes TAKE 1 [...] 2-13 TABLET BY l 00:00: MOUTH DAILY OCUVITE EYE 2012-02 Yes Memori a + MULTI 2-13 l TABS 00:00: 00 COQ10 CAPS 2012-02 Yes Memoria 2-13 l 00:00: 00 ASPIRIN 81 2012-02 Yes Memoria MG [...] moria MG CAPS 2-13 evening. l 00:00: [place] 00 FLUTICASONE Yes 1 spray in Memoria [...] Date Status Commen ts Source Name Name [id number] 2020-07-04 Completed Andres rial [id number] 00:00:00 Herm jennie [id number] 2020-07-04 Completed Andres rial [id number] 00:00:00 Herm jennie [id number] 2020-06-09 Completed Andres rial [id number] 00:00:00 Herm jennie [id number] 2020-06-09 Completed Andres ria [id number] 00:00:00 Herm jennie influenza virus 2018-08-11 Completed [facility], inactivated 00:00:00 Herm jennie influenza virus 2018-08-11 Completed [facility] vaccine, inactivated 00:00:00 Herm jennie influenza virus 2017-02-11 Completed [facility] vaccine, 00:00:00 [place] inactivated<sup>1</s up> influenza virus 2017-02-11 Completed [facility] vaccine, 00:00:00 Jimmy inactivated<sup>1</s up> Hx influenza 2010-10-16 Completed [facility] vaccine-unspecified< 14:23:57 Herm jennie sup>2</sup> influenza 2010-10-16 Completed [facility] immunization (Flu 14:23:57 [place] Vax) has been administered Hx influenza 2010-10-16 Completed [facility] vaccine-unspecified< 14:23:57 Herm jennie sup>2</sup> influenza 2010-10-16 Completed [facility] immunization (Flu 14:23:57 Jimmy Vax) has been administered pneumococcal 2007-06-14 Completed [facility] 23-valent 14:23:57 [place] vaccine<sup>3</sup> pneumococcal 2007-06-14 Completed [facility] immunization 14:23:57 Jimmy administered pneumococcal 2007-06-14 Completed [facility] 23-valent 14:23:57 Jimmy vaccine<sup>3</sup> pneumococcal 2007-06-14 Completed [facility] immunization 14:23:57 Jimmy administered Hx hepatitis B 2006-04-11 Completed [facility] vaccine<sup>4</sup> 15:23:57 Mary nn hepatitis B vaccine 2006-04-11 Completed Memor ial #3 15:23:57 [place] Hx hepatitis B 2006-04-11 Completed [facility] vaccine<sup>4</sup> 15:23:57 Mary nn hepatitis B vaccine 2006-04-11 Completed Memor ial #3 15:23:57 [place] varicella virus 2006-03-20 Completed [facility] vaccine<sup>7</sup> 15:23:57 Mary nn chicken pox 2006-03-20 Completed [facility] immunization #1 15:23:57 [place] varicella virus 2006-03-20 Completed [facility] vaccine<sup>7</sup> 15:23:57 Mary nn chicken pox 2006-03-20 Completed [facility] immunization #1 15:23:57 Jimmy zoster vaccine 2006-03-20 Completed [facility] live<sup>8</sup> 06:00:00 [place] zoster vaccine 2006-03-20 Completed [facility] live<sup>8</sup> 06:00:00 Jimmy Hx hepatitis B 2006-03-15 Completed [facility] vaccine<sup>5</sup> 15:23:57 Mary nn hepatitis B vaccine 2006-03-15 Completed [facility]2 given 15:23:57 Jimmy Hx hepatitis B 2006-03-15 Completed [facility] vaccine<sup>5</sup> 15:23:57 Mary nn hepatitis B vaccine 2006-03-15 Completed [facility]2 given 15:23:57 Jimmy measles/mumps/rubell 2006-02-28 Completed [facility] rial a virus 15:23:57 [place] vaccine<sup>9</sup> MMR (measles, mumps, 2006-02-28 Completed [facility] rial rubella) virus 15:23:57 Jimmy immunization #1 measles/mumps/rubell 2006-02-28 Completed [facility] rial a virus 15:23:57 [place] vaccine<sup>9</sup> MMR (measles, mumps, 2006-02-28 Completed [facility] rial rubella) virus 15:23:57 Jimmy immunization #1 Hx hepatitis B 2006-02-25 Completed [facility]<sup>6</sup> 15:23:57 Mary nn hepatitis B vaccine 2006-02-25 Completed [facility] given 15:23:57 Jimmy Hx hepatitis B 2006-02-25 Completed [facility] vaccine<sup>6</sup> [...] kg Heart rate 2021-05-15 14:59:00 72 /min [facility] [place] [facility] [employer] [employer] [facility] Body height 2021-05-15 14:59:00 172.7 cm [facility] [place] [facility] Systolic blood 2021-05-15 14:59:00 138 mm[Hg] [facility] Diastolic blood 2021-05-15 14:59:00 74 mm[Hg] [facility] Systolic blood 2019-11-19 15:57:00 146 mm[Hg] [facility] Diastolic blood 2019-11-19 15:57:00 72 mm[Hg] [facility] Heart rate 2019-11-19 15:57:00 91 /min [facility] [place] [facility] Body height 2019-11-19 15:57:00 172.7 cm [facility] [place] [facility] Body weight 2019-11-19 15:57:00 83.462 kg [facility] [place] [facility] BMI 2019-11-19 15:57:00 27.98 kg/m2 [facility] [place] [facility] Systolic blood 2019-11-19 15:57:00 146 mm[Hg] [facility] Diastolic blood 2019-11-19 15:57:00 72 mm[Hg] [facility] Heart rate 2019-11-19 15:57:00 91 /min [facility] [place] [facility] Medicine Body height 2019-11-19 15:57:00 172.7 cm [facility] Body weight 2019-11-19 15:57:00 83.462 kg [facility] BMI 2019-11-19 15:57:00 27.98 kg/m2 [facility] Systolic blood 2019-11-12 01:28:00 126 mm[Hg] Univer sity of pressure [facility] Diastolic blood 2019-11-12 01:28:00 63 mm[Hg] Unive rsity of pressure [facility] Heart rate 2019-11-12 01:28:00 84 /min [facility] Respiratory rate 2019-11-12 01:28:00 20 /min [facility] Oxygen saturation in 2019-11-12 01:28:00 100 /min [facility] Arterial blood by [place] [facility] Pulse oximetry Branch Systolic blood [...] 99 /min [facility] Arterial blood by [place] [facility] Pulse oximetry Branch Body temperature 2019-11-11 22:21:00 [...] 100 /min [facility] Arterial blood by [facility] Pulse oximetry Branch Systolic blood [...] 99 /min [facility] Arterial blood by [facility] raman Pulse oximetry Branch Body temperature 2019-11-11 22:21:00 36.61 Pat [facility] Body weight 2019-11-11 22:21:00 85 kg [facility] Heart Rate 2021-12-23 14:30:35 Lino [place] Temperature Oral (F) 2021-12-23 14:30:28 96.8 F [facility] Systolic (mm Hg) 2021-12-23 14:30:01 Andres egan Jimmy Diastolic (mm Hg) 2021-12-23 14:30:01 Mem gerald Jimmy Temperature Oral (F) 2021-12-17 17:00:00 96.9 F Lino Jimmy Height 2021-12-16 10:50:00 5 [ft_i] [facility] Weight 2021-12-16 10:50:00 [facility] BMI Calculated 2021-12-16 10:50:00 Agata plummer [facility] Systolic blood 2021-12-12 07:00:00 134 mm[Hg] [facility] Diastolic blood 2021-12-12 07:00:00 53 mm[Hg] [facility] Heart rate 2021-12-12 07:00:00 50 /min [facility] Body temperature 2021-12-12 07:00:00 36.67 Pat [facility] Respiratory rate 2021-12-12 07:00:00 18 /min [facility] Oxygen saturation in 2021-12-12 07:00:00 93 /min [facility] Arterial blood by Medical Ce nter Pulse oximetry Body weight 2021-12-11 21:00:00 91 kg [facility] BMI 2021-12-11 21:00:00 30.50 kg/m2 [facility] Body height 2021-12-09 17:00:00 172.7 cm [facility] Systolic blood 2021-06-15 17:41:09 176 mm[Hg] Method ist [facility] pressure Diastolic blood 2021-06-15 17:41:09 70 mm[Hg] [facility] pressure Heart rate 2021-06-15 17:41:09 70 /min Method t [facility] Body temperature 2021-06-15 17:41:09 36.89 Pat [facility] Respiratory rate 2021-06-15 17:41:09 18 /min [facility] Oxygen saturation in 2021-06-15 17:41:09 97 /min [facility] Arterial blood by Pulse oximetry Body height 2021-06-12 21:25:00 172.7 cm [facility] Body weight 2021-06-12 21:25:00 86.183 kg [facility] BMI 2021-06-12 21:25:00 28.89 kg/m2 [facility] Body height 2020-04-27 20:44:00 172.7 cm [facility] Body weight 2020-04-27 20:44:00 84.369 kg [facility] BMI 2020-04-27 20:44:00 28.28 kg/m2 [facility] Systolic blood 2020-03-26 14:44:51 139 mm[Hg] [facility] pressure Diastolic blood 2020-03-26 14:44:51 66 mm[Hg] [facility] pressure Heart rate 2020-03-26 14:44:51 80 /min [facility] Body temperature 2020-03-26 14:44:51 36 Pat [facility] Respiratory rate 2020-03-26 14:44:51 19 /min [facility] Oxygen saturation in 2020-03-26 14:44:51 96 /min [facility] Arterial blood by Pulse oximetry [facility] 2014-02-18 15:55:42 [facility] Weight 2014-02-18 15:55:42 [facility] Temperature Oral (F) 2014-02-18 15:55:42 97.5 F [facility] Heart Rate 2014-02-18 15:55:42 [facility] Systolic (mm Hg) 2014-02-18 15:55:42 Andres rial Jimmy Diastolic (mm Hg) 2014-02-18 15:55:42 Mem orial Jimmy Weight 2013-01-23 19:53:21 [facility] Temperature Oral (F) 2013-01-23 19:53:21 97.6 F [facility] Heart Rate 2013-01-23 19:53:21 [facility] Height 2013-01-23 19:53:21 [facility] Systolic (mm Hg) 2013-01-23 19:53:21 Andres rial Jimmy Diastolic (mm Hg) 2013-01-23 19:53:21 Mem orial Jimmy Procedures Procedure Date / Time Performing Source Performed Clinician Esophagogastroduodenoscopy 2021-12-18 Shayy Marquez , flexible, transoral; 14:07:00 diagnostic, including collection of specimen(s) by brushing or washing, when performed (separate procedure) CBC W/PLT COUNT & AUTO 2021-12-12 [facility] DIFFERENTIAL 04:59:00 [place] BASIC METABOLIC PANEL 2021-12-12 Vanda Marleyna Aleks [facility] Medical 04:59:00 [place] CBC W/PLT COUNT & AUTO 2021-12-12 [facility] DIFFERENTIAL 04:59:00 [place] HEMODIALYSIS INPATIENT 2021-12-11 BetoBarak Ray [facility] 21:00:00 [place] ECG 12-LEAD 2021-12-11 Susan Pfeiffer [facility] ical 15:07:30 [place] ECG 12-LEAD 2021-12-11 Unknown, Hl7 Doctor [facility] 15:07:30 [place] ECG 12-LEAD 2021-12-11 Unknown, Hl7 Doctor [facility] 15:07:[address] ABDOMEN/PELVIS WITHOUT 2021-12-11 [facility] IV CONTRAST 14:20:00 [place] CBC W/PLT COUNT & AUTO 2021-12-11 [facility] 05:12:00 [place] BASIC METABOLIC PANEL 2021-12-11 Neeru Marley [facility] 05:12:00 [place] HEPATITIS B SURFACE 2021-12-11 Taco Pérezguillaume Goel [facility] ANTIGEN 05:12:00 [place] CBC W/PLT COUNT & AUTO 2021-12-11 [facility] DIFFERENTIAL 05:12:00 [place] C-REACTIVE PROTEIN 2021-12-10 Onyirioha, Kristeen [facility] 11:32:00 [facility] PHOSPHORUS 2021-12-10 Barak Pérez [facility] 11:32:00 [place] SARS-COV2/RT-PCR ([facility] & 2021-12-10 Donell [facility] REF LABS) 10:07:00 [place] CBC W/PLT COUNT & AUTO 2021-12-10 Neeru Marley [facility] Medical DIFFERENTIAL 04:26:00 [place] BASIC METABOLIC PANEL 2021-12-10 DonellNeeru Aleks [facility] Medical 04:26:00 [place] CBC W/PLT COUNT & AUTO 2021-12-10 Neeru [facility] DIFFERENTIAL 04:26:00 Center HEMOGLOBIN AND HEMATOCRIT 2021-12-09 [facility], [facility] 18:47:00 Center TYPE AND SCREEN, AUTOMATED 2021-12-09 Donell, [facility] 18:47:00 Center XR CHEST 2 VW 2021-09-15 Requisition, Paper [facility] 16:09:00 Medical Branch ASSIGNMENT OF BENEFITS 2021-09-15 Doctor Unassigned, [facility] 15:42:19 [place] [facility] HEMOGLOBIN & HEMATOCRIT 2021-06-15 [facility] 14:45:00 HEMODIALYSIS 2021-06-15 Jenny Enriquez [facility] 12:31:53 Lara CBC WITH PLATELET AND 2021-06-15 [facility] DIFFERENTIAL 09:14:00 BASIC METABOLIC PANEL 2021-06-15 [facility] 09:14:00 ESTIMATED GFR 2021-06-15 [facility] 09:14[facility]00 ECG 12-LEAD 2021-06-14 [facility] al 18:49:23 Hector CBC WITH PLATELET AND 2021-06-13 Francesca Mac [facility] DIFFERENTIAL 23:02:00 COVID-19 QUALITATIVE 2021-06-13 [facility] ospital RT-PCR 13:31:00 HEPATITIS B SURFACE 2021-06-13 Antony Ross [facility] ANTIGEN 12:37:00 CBC WITH PLATELET AND 2021-06-13 [facility] DIFFERENTIAL 09:33:00 [place] BASIC METABOLIC PANEL 2021-06-13 [facility] 09:33:00 [place] MAGNESIUM LEVEL 2021-06-13 [facility] 09:33:00 [place] PARTIAL THROMBOPLASTIN 2021-06-13 [facility] TIME (PTT) 09:33:00 [place] TROPONIN T 2021-06-13 [place] [facility] 09:33[facility]00 [place] ESTIMATED GFR 2021-06-13 [place] [facility] 09[facility]33:00 [place] TOTAL IRON BINDING 2021-06-13 [facility] pital CAPACITY 09:33:00 [place] FERRITIN LEVEL 2021-06-13 [facility] 09:[facility]:[address] ABDOMEN PELVIS WO 2021-06-13 Svetlana Cano [facility] CONTRAST 05:03:23 ECG ED PRELIMINARY 2021-06-13 [facility] pital INTERPRETATION 02:34:56 Arturo R. HEMODIALYSIS 2021-06-13 Antony Ross [facility] pital 02:16:04 CBC WITH PLATELET AND 2021-06-12 [facility] DIFFERENTIAL 22:50:00 Arturo R. PROTHROMBIN TIME WITH INR 2021-06-12 [facility] 22:50:00 Arturo R. TYPE AND SCREEN 2021-06-12 [facility] 22:50:00 Arturo R. COMPREHENSIVE METABOLIC 2021-06-12 [facility] PANEL 22:50:00 Arturo R. LIPASE LEVEL [facility]12 [facility] Arturo R. ESTIMATED GFR 2021-06-12 [facility] 22:50:00 Arturo R. ECG 12-LEAD 2021-06-12 [facility] 21:49[facility]24 Arturo R. ELECTROCARDIOGRAM COMPLETE 2021-05-15 [facility] of 13:13:49 Medicine ([facility]) NUCLEAR MED SCAN 2021-05-15 [facility] llege of 09:49:10 Medicine ([facility]) SCANNED ORDER 2021-05-15 [facility] of 09:49:10 Medicine [id number] 2020-05-24 GRANI [facility] [place] 00:00:00 [facility] [id number] 2020-05-20 GIBJE.01 [facility] [place] 00:00:00 [facility] [id number] 2020-05-20 GIBJE.01 [facility] [place] 00:00:00 [facility] [id number] 2020-05-20 GIBJE.01 [facility] [place] [facility] 00:00:00 [facility] [id number] 2020-05-20 SEEGE [facility] 00:00:00 [facility] [id number] 2020-05-16 JUSTINO.03 [facility] [place] 00:00:00 [facility] [id number] 2020-05-14 JUSTINO.03 [facility] [place] 00:00:00 [facility] [id number] 2020-05-11 [facility] 00:00:00 [facility] [place] [id number] 2020-05-11 [facility] 00:00:00 [facility] [place] [id number] 2020-05-11 [facility] 00:00:00 [facility] [place] [id number] 2020-05-11 [facility] 00:00:00 Rehabilitation Ching [id number] 2020-03-30 [facility] 00:00:00 Rehabilitation C jaycob [id number] 2020-03-30 [facility] 00:00:00 Rehabilitation C jaycob [id number] 2020-03-30 [facility] 00:00:00 Rehabilitation C jaycob [id number] 2020-03-30 [facility] 00:00:00 Rehabilitation C jaycob [id number] 2020-03-30 [facility] 00:00:00 Rehabilitation C jaycob [id number] 2020-03-30 [facility] 00:00:00 Rehabilitation C jaycob [id number] 2020-03-30 [facility] 00:00:00 Rehabilitation C jaycob [id number] 2020-03-30 [facility] 00:00:00 Rehabilitation C jaycob [id number] 2020-03-30 [facility] 00:00:00 Rehabilitation C jaycob [id number] 2020-03-30 [facility] 00:00:00 Rehabilitation C jaycob [id number] 2020-03-30 [facility] 00:00:00 Rehabilitation C jaycob [id number] 2020-03-30 [facility] 00:00:00 Rehabilitation C jaycob [id number] 2020-03-30 [facility] 00:00:00 Rehabilitation C ypress [id number] 2020-03-30 [facility] 00:00:00 Rehabilitation C ypress [id number] 2020-03-30 [facility] 00:00:00 Rehabilitation C ypress [id number] 2020-03-30 [facility] 00:00:00 Rehabilitation C ypress [id number] 2020-03-30 [facility] 00:00:00 Rehabilitation C ypress [id number] 2020-03-30 [facility] 00:00:00 Rehabilitation C ypress [id number] 2020-03-30 [facility] 00:00:00 Rehabilitation C ypress [id number] 2020-03-30 [facility] 00:00:00 Rehabilitation C ypress [id number] 2020-03-30 [facility] 00:00:00 Rehabilitation C ypress [id number] 2020-03-30 [facility] 00:00:00 Rehabilitation C ypress HC COMPLETE BLD COUNT 2020-03-25 [facility] W/AUTO DIFF 10:45:00 Obi BASIC METABOLIC PANEL 2020-03-25 [facility] 10:00:00 Obi ESTIMATED GFR 2020-03-25 [facility] Hospit al 10:00:00 Obi HEMODIALYSIS 2020-03-24 Maldonado Cas[facility] 22:39:54 Deepak HC COMPLETE BLD COUNT 2020-03-24 [facility] W/AUTO DIFF 11:00:00 Obi BASIC METABOLIC PANEL 2020-03-24 [facility] 10:00:00 Obi ESTIMATED GFR 2020-03-24 [facility] Hospit al 10:00:00 Obi US CAROTID DUPLEX 2020-03-23 [facility] BILATERAL 18:31:05 BASIC METABOLIC PANEL 2020-03-23 [facility] 09:20:00 Obi HC COMPLETE BLD COUNT 2020-03-23 [facility] W/AUTO DIFF 09:20:00 Obi ESTIMATED GFR 2020-03-23 [facility] al 09:20:00 Obi POC GLUCOSE 2020-03-22 [facility] Hospit al 22:27:00 Obi HEMODIALYSIS 2020-03-22 Romy [facility] 22:13:20 Tabitha ANAEROBIC CULTURE 2020-03-22 [place], [facility] Hosp ital 20:52:00 FUNGUS CULTURE 2020-03-22 [place] Hospit al 20:52:00 AFB STAIN 2020-03-22 [place], [facility] Hospit al 20:52:00 AEROBIC CULTURE 2020-03-22 [place], [facility] Hospit al 20:52:00 FUNGUS SMEAR 2020-03-22 [place], [facility] Hospit al 20:52:00 ANAEROBIC CULTURE 2020-03-22 [place], [facility] Hosp ital 20:50:00 FUNGUS CULTURE 2020-03-22 [place], [facility] Hospit al 20:50:00 AFB STAIN 2020-03-22 [place], [facility] Hospit al 20:50:00 AEROBIC CULTURE 2020-03-22 [place], [facility] al 20:50:00 GRAM STAIN 2020-03-22 [place]OLOGY [facility] 2020-03-22 [facility] 20:30:00 Obi AFB CULTURE 2020-03-22 [place] 19:52:00 AFB CULTURE 2020-03-22 [place] 19:50:00 [facility] [place] < [facility] HOUR [facility] AN ELECTIVE 2020-03-22 [facility] ENDOTRACHEAL AIRWAY 19:25:28 AMPUTATION, ABOVE KNEE 2020-03-22 [facility] 18:47:00 POC GLUCOSE 2020-03-22 [facility] 15:07:00 Obi HC COMPLETE BLD COUNT 2020-03-22 [facility] W/AUTO DIFF 12:45:00 TYPE AND SCREEN 2020-03-22 [facility] al 12:45:00 VANCOMYCIN LEVEL, RANDOM 2020-03-22 Carolina Weston [facility] 10:00:00 Yasser BASIC METABOLIC PANEL 2020-03-22 [facility] 10:00:00 Obi ESTIMATED GFR 2020-03-22 [facility] 10:[facility]00 Obi LIPID PANEL 2020-03-22 [facility] 10[facility]:00 HEPATITIS B SURFACE 2020-03-21 Kumar Ayala H ospital ANTIGEN 14:22:00 PROTHROMBIN TIME WITH INR 2020-03-21 [facility] 12:15:00 PARTIAL THROMBOPLASTIN 2020-03-21 [facility] TIME (PTT) 12:15:00 BASIC METABOLIC PANEL 2020-03-21 [facility] 12:15:00 CBC WITH PLATELET AND 2020-03-21 [facility] DIFFERENTIAL 12:15:00 VANCOMYCIN LEVEL, RANDOM 2020-03-21 [facility] 12:15:00 Yasser ESTIMATED GFR 2020-03-21 [facility] Hos pital 12:15:00 Yasser HEMODIALYSIS 2020-03-21 [facility] 06:05:17 VANCOMYCIN LEVEL, RANDOM 2020-03-20 [facility] 20:54:00 Yasser BASIC METABOLIC PANEL 2020-03-20 [facility] 11:30:00 Obi ESTIMATED GFR 2020-03-20 [facility] 11:30:00 Obi TTE COMPLETE, W CONTRAST, 2020-03-19 [facility] W DOPPLER ([id number]) 18:00:00 Ryan HC COMPLETE BLD COUNT 2020-03-19 [facility] W/AUTO DIFF 10:14:00 MRI KNEE WO CONTRAST RIGHT 2020-03-19 [facility] 09:38:00 [place] MRI THIGH WO CONTRAST 2020-03-19 [facility] RIGHT 08:52:00 [place] MRI LOWER EXTREMITY WO 2020-03-19 [facility] CONTRAST RIGHT 08:07:00 Ryan BASIC METABOLIC PANEL 2020-03-19 [facility] 07:01:00 ESTIMATED GFR 2020-03-19 [facility] Hospit al 07:01:00 LACTIC ACID LEVEL 2020-03-19 [facility] 07:01:00 LACTIC ACID LEVEL, SEPSIS 2020-03-19 [facility] - NOW AND REPEAT 2X EVERY 01:46:00 Ol[place] 3 HOURS BLOOD CULTURE, AEROBIC & 2020-03-18 [facility] ANAEROBIC 23:22:00 Olol[place] COVID-19 QUALITATIVE 2020-03-18 [facility] ospital RT-PCR 23:22:00 [place] BLOOD CULTURE, AEROBIC & 2020-03-18 [facility] ANAEROBIC 23:16:00 Ol[place] HC COMPLETE BLD COUNT 2020-03-18 [facility] W/AUTO DIFF 23:16:00 [place] PROTHROMBIN TIME WITH INR 2020-03-18 [facility] 23:16:00 [place] PARTIAL THROMBOPLASTIN 2020-03-18 [facility] TIME (PTT) 23:16:00 [place] TYPE AND SCREEN 2020-03-18 [facility] al 23:16:00 [place] COMPREHENSIVE METABOLIC 2020-03-18 [facility] PANEL 23:16:00 [place] LACTIC ACID LEVEL, SEPSIS 2020-03-18 [facility] - NOW AND REPEAT 2X EVERY 23:16:00 [place] 3 HOURS C-REACTIVE PROTEIN 2020-03-18 [facility] pital 23:16:00 [place] SEDIMENTATION RATE 2020-03-18 [facility] 23:16:00 [place] ESTIMATED GFR 2020-03-18 [facility] 23:16:00 [place] URINE CULTURE 2020-03-18 [facility] 23:10:00 [place] URINALYSIS SCREEN AND 2020-03-18 [facility] MICROSCOPY, WITH REFLEX TO 23:10:00 [place] CULTURE XR KNEE 1 OR 2 VW RIGHT 2020-03-18 [facility] 23:03:39 [place] XR TIBIA FIBULA 2 VW RIGHT 2020-03-18 [facility] 23:03:04 [place] URINALYSIS 2019-11-11 [facility] 23:48:00 Medical Branch XR CHEST 1 VW 2019-11-11 N[facility] 23:02:37 Medical Branch MAGNESIUM 2019-11-11 [facility] 22:43:00 Medical Branch COMP. METABOLIC PANEL 2019-11-11 [facility] ([id number]) 22:43:00 Medical Branch CBC WITH DIFF 2019-11-11 [facility] 22:43:00 Medical Branch TROPONIN I 2019-11-11 [facility] 22:43:00 Medical Branch EKG-12 LEAD 2019-11-11 [facility] 22:40:13 Medical Branch Colonoscopy 2013-02-11 [facility] 06:00:00 Placement of stent 2010-01-13 [facility] Herm jennie 06:00:[address] [facility] knee<sup>5</sup> Complete resection of [facility] colon<sup>2</sup> Procedure on [facility] hand<sup>3</sup> Bilateral replacement of [facility] knee joints<sup>1</sup> Manual repair of hernia [facility] Procedure on [facility] kidney<sup>4</sup> Plan of Care Planned Activity Planned Date Details Comments Source Future Scheduled 2022-01-22 65+ [facility]UMOCOCC[address] [facility] Test 16:36:00 VACCINE (1 - PCV) [code Hosp ital = 65+ PNEUMOCOCCAL VACCINE (1 - PCV)] Future Scheduled 2022-01-22 SHINGLES VACCINES (1 of [facility] 16:36:00 2) [code = [facility] VACCINES (1 of 2)] Future Scheduled 2022-01-22 COLONOSCOPY SCREENING [facility] 16:36:00 [code = COLONOSCOPY Hospital SCREENING] Future Scheduled 2022-01-22 COVID-19 VACCINE (3 - [facility] 16:36:00 Booster for Pfizer Hospital series) [code = COVID-19 VACCINE (3 - Booster for Pfizer series)] Future Scheduled 2022-01-22 INFLUENZA VACCINE [code [facility] 16:36:00 = INFLUENZA VACCINE] Hospita l Future Scheduled 2022-01-22 65+ [facility]UMOCOCC[address] [facility] Test 16:36:00 VACCINE (1 - PCV) [code Hosp ital = 65+ PNEUMOCOCCAL VACCINE (1 - PCV)] Future Scheduled 2022-01-22 SHINGLES VACCINES (1 of [facility] 16:36:00 2) [code = SHINGLES Hospital VACCINES (1 of 2)] Future Scheduled 2022-01-22 COLONOSCOPY SCREENING [facility] 16:36:00 [code = COLONOSCOPY Hospital SCREENING] Future Scheduled 2022-01-22 COVID-19 VACCINE (3 - [facility] 16:36:00 Booster for Pfizer Hospital series) [code = COVID-19 VACCINE (3 - Booster for Pfizer series)] Future Scheduled 2022-01-22 INFLUENZA VACCINE [code [facility] 16:36:00 = INFLUENZA VACCINE] Hospita l Future Scheduled 2021-12-15 HEPATITIS B VACCINES (1 [facility] 11:14:19 of 3 - 3-dose series) Hospit al [code = HEPATITIS B VACCINES (1 of 3 - 3-dose series)] Future Scheduled 2021-12-15 65+ PNEUMOCOCC[address] [facility]i [facility] Test 11:14:19 VACCINE (1 - PCV) [code Hosp ital = 65+ PNEUMOCOCCAL VACCINE (1 - PCV)] Future Scheduled 2021-12-15 SHINGLES VACCINES (1 of [facility] 11:14:19 2) [code = SHINGLES Hospital VACCINES (1 of 2)] Future Scheduled 2021-12-15 COLONOSCOPY SCREENING [facility] 11:14:19 [code = COLONOSCOPY Hospital SCREENING] Future Scheduled 2021-12-15 COVID-19 VACCINE (3 - [facility] 11:14:19 Booster for Pfizer Hospital series) [code = COVID-19 VACCINE (3 - Booster for Pfizer series)] Future Scheduled 2021-12-15 INFLUENZA VACCINE [code [facility] 11:14:19 = INFLUENZA VACCINE] Hospita l Future Scheduled 2021-12-15 HEPATITIS B VACCINES (1 [facility] 11:14:19 of 3 - 3-dose series) Hospit al [code = HEPATITIS B VACCINES (1 of 3 - 3-dose series)] Future Scheduled 2021-12-15 65+ PNEUMOCOCC[address] [facility]i [facility] Test 11:14:19 VACCINE (1 - PCV) [code Hosp ital = 65+ PNEUMOCOCCAL VACCINE (1 - PCV)] Future Scheduled 2021-12-15 SHINGLES VACCINES (1 of [facility] 11:14:19 2) [code = SHINGLES Hospital VACCINES (1 of 2)] Future Scheduled 2021-12-15 COLONOSCOPY SCREENING [facility] 11:14:19 [code = COLONOSCOPY Hospital SCREENING] Future Scheduled 2021-12-15 COVID-19 VACCINE (3 - [facility] 11:14:19 Booster for Pfizer Hospital series) [code = COVID-19 VACCINE (3 - Booster for Pfizer series)] Future Scheduled 2021-12-15 INFLUENZA VACCINE [code [facility] 11:14:19 = INFLU[facility]ZA VACCINE[facility] 2021-12-15 HEPATITIS B VACCINES (1 [facility] 11:14:19 of 3 - 3-dose series) Hospit al [code = HEPATITIS B VACCINES (1 of 3 - 3-dose series)] Future Scheduled 2021-12-15 65+ PNEUMOCOCC[address] [facility]i [facility] Test 11:14:19 VACCINE (1 - PCV) [code Hosp ital = 65+ PNEUMOCOCCAL VACCINE (1 - PCV)] Future Scheduled 2021-12-15 SHINGLES VACCINES (1 of [facility] 11:14:19 2) [code = SHINGLES Hospital VACCINES (1 of 2)] Future Scheduled 2021-12-15 COLONOSCOPY SCREENING [facility] 11:14:19 [code = COLONOSCOPY Hospital SCREENING] Future Scheduled 2021-12-15 COVID-19 VACCINE (3 - [facility] 11:14:19 Booster for Pfizer Hospital series) [code = COVID-19 VACCINE (3 - Booster for Pfizer series)] Future Scheduled 2021-12-15 INFLUENZA VACCINE [code [facility] 11:14:19 = INFLUENZA VACCINE] Hospita l Future Scheduled 2021-10-27 HEPATITIS B VACCINES (1 [facility] 04:11:20 of 3 - 3-dose series) Hospit al [code = HEPATITIS B VACCINES (1 of 3 - 3-dose series)] Future Scheduled 2021-10-27 65+ PNEUMOCOCCAL Methodi [facility] Test 04:11:20 VACCINE (1 - PCV) [code Hosp ital = 65+ PNEUMOCOCCAL VACCINE (1 - PCV)] Future Scheduled 2021-10-27 SHINGLES VACCINES (1 of [facility] Test 04:11:20 2) [code = SHINGLES Hospital VACCINES (1 of 2)] Future Scheduled 2021-10-27 COLONOSCOPY SCREENING [facility] 04:11:20 [code = COLONOSCOPY Hospital SCREENING] Future Scheduled 2021-10-27 COVID-19 VACCINE (3 - [facility] Test 04:11:20 Booster for Pfizer Hospital series) [code = COVID-19 VACCINE (3 - Booster for Pfizer series)] Future Scheduled 2021-10-27 INFLUENZA VACCINE [code [facility] Test 04:11:20 = INFLUENZA VACCINE] Hospita l [...] (#1)] Future Scheduled 2021-05-15 Screening for malignant [facility] Test 12:13:46 neoplasm of colon of Medicin e (procedure) [code = 067782062] Future Scheduled 2021-05-15 COVID-19 Vaccine (1) [facility] Test 12:13:46 [code = COVID-19 of Medicine Vaccine (1)] Future Scheduled 2021-05-15 TETANUS SHOT (ADULT) [facility] [employer] Test 12:13:46 [code = TETANUS SHOT of Medi cine (ADULT)] Future Scheduled 2021-05-15 BMI FOLLOW UP PLAN [employer] Test 12:13:46 [code = BMI FOLLOW UP of Med icine PLAN] Future Scheduled 2021-05-15 Hepatitis C screening [employer] Test 12:13:46 (procedure) [code = of Medic ine [id number]] Future Scheduled 2021-05-15 ZOSTER VACCINE (1 of 2) [facility] [place] [employer] Test 12:13:46 [code = ZOSTER VACCINE of Me dicine (1 of 2)] Future Scheduled 2021-05-15 FALL SCREEN [code = [place] [facility] [place] Test 12:13:46 FALL SCREEN] of Medicine Future [...] M edicine MONTHS] Future Scheduled 2021-05-15 ELECTROCARDIOGRAM [facility] [place] [employer] Test 10:00:47 COMPLETE [code = 89615] of M edicine Diagnostic Test 2021-05-15 MYOCARD PERFUSION - Expected: [employer] Pending 00:00:00 LEXISCAN [code = 73066] 05/15/2021, of M edicine Expires: 11/14/2022 Diagnostic Test 2021-05-15 ECHO, COMPLETE [code = Expected: [employer] Pending 00:00:00 09121] 05/15/2021, of Medicine Expires: 11/14/2021 Future Scheduled [...] VACCINES (#1)] Future Scheduled INFLUENZA VACCINE [code [facility] = INFLUENZA VACCINE] Hospita l Future Scheduled ELECTROCARDIOGRAM [facility] Test COMPLETE [code = 70014] of M edicine Future Scheduled COLON CANCER SCREENING: [facility] Test COLONOSCOPY [code = of Medic ine COLON CANCER SCREENING: COLONOSCOPY] Future Scheduled TETANUS SHOT (ADULT) [employer] Test [code = TETANUS SHOT of Medi cine (ADULT)] Future Scheduled BMI FOLLOW UP PLAN [employer] Test [code = BMI FOLLOW UP of Med icine PLAN] Future Scheduled HEPATITIS C SCREENING [employer] Test [code = HEPATITIS C of Medic ine SCREENING] Future Scheduled ZOSTER VACCINE (1 of 2) [facility] [place] [employer] Test [code = ZOSTER VACCINE of Me dicine (1 of 2)] Future Scheduled FALL SCREEN [code = [employer] FALL SCREEN] of Medicine Future Scheduled PNEUMOVAX >=65 (PPSV23) [facility] [place] [employer] Test [code = PNEUMOVAX >=65 of Me dicine (PPSV23)] Future Scheduled MEDICARE AWV (Initial) [employer] Test [code = MEDICARE AWV of Medi cine (Initial)] Future Scheduled FLU VACCINE > 6 MONTHS [employer] Test [code = FLU VACCINE > 6 of M edicine MONTHS] Future Scheduled EVENT MONITOR [code = 1 Occurrences [employer] Test 78070] starting of Medicine 11/19/2019 until 02/17/2020 Encounters Start End Encounter Admission Attending Care Care Encounter Source Date/Time Date/Time Type Type Clinicians Facility Department ID 2021-03-09 Outpatient 3 [id number] ENCPL BIT [facility] 11:54:24 [facility] [place] 2021-03-09 Outpatient 3 [id number] ENCPL REF [id number] [facility] 11:53:41 0406 [facility] [place] 2021-03-09 Outpatient 3 [id number] ENCPL REF [id number] [facility] 11:50:56 0329 [facility] [place] 2021-03-09 Outpatient 3 MICHELLE DIAZ AML [id number] [facility] 11:34:54 IGNAZIO 01043 [facility] [place] 2021-03-09 Outpatient 3 [id number] ENCPL REF [id number] [facility] 11:33:20 0212 [facility] [place] 2021-03-09 Outpatient 3 [id number] ENCPL REF [id number] [facility] 11:32:52 0211 [facility] 2021-03-09 Outpatient 3 [id number] ENCPL REF [id number] [facility] 11:32:[address] [facility] Outpatient Provider, HCAPM HCAPM [id number] [facility] 10:29:00 Undefined 34 [facility] 2020-06-07 Inpatient UR Kirsten, HCACL HCACL [id number] [facility] 18:10:16 Sekou 19 [facility] 2020-05-16 Inpatient HCACL HCACL [id number] [facility] 06:04:26 61 [facility] 2020-03-26 Inpatient 3 Keegan, ENCPL AML [id number] [facility] 12:00:00 Chaya 0213 [facility] 2021-12-16 2021-12-23 Inpatient [facility] [id number] Memoria 10:37:00 19:27:[address] 2021-12-16 2021-12-23 Inpatient [facility] [id number] Memoria 10:37:00 19:27:[address] 2021-12-16 2021-12-23 Outpatient Solipuram, [facility] [id number] 05:37:00 13:27:00 Vesta Azevedo Jon Mccracken 2021-12-16 2021-12-23 Inpatient SOLURAM, [facility] 2309 [facility] 05:37:00 13:27:00 VESTA 2021-12-09 2021-12-12 Inpatient ER [facility] [id number] SLE 16:00:00 10:59:00 NEERU Med 2021-12-09 2021-12-12 [facility] [id number] 16:00:00 10:59:00 Encounter [facility] 2021-12-09 2021-12-12 [facility] [id number] 16:00:00 10:59:00 Encounter [facility] 2021-12-11 2021-12-11 Outpatient [facility] [id number] [facility] [place] 00:00:00 23:59:00 Marion bravo of Medicin e 2021-12-11 2021-12-11 Orders [facility] [id number] 00:00:00 00:00:00 Only [facility] 2021-12-11 2021-12-11 Orders [facility] [id number] 00:00:00 00:00:00 Only [facility] 2021-12-09 2021-12-09 Travel [facility] [id number] [facility] 00:00:00 00:00:00 [facility] 2021-12-09 2021-12-09 Telephone Donell [facility] [id number] 00:00:00 00:00:00 [facility] 2021-12-09 2021-12-09 Travel [facility] [id number] [facility] 00:00:00 00:00:00 [facility] 2021-12-09 2021-12-09 Telephone Donell [facility] [id number] 00:00:00 00:00:00 [facility] 2021-09-15 2021-09-15 Outpatient R RADIOLOGY [facility] [id number] Univers 10:45:54 23:59:00 ity of [facility] 2021-09-15 2021-09-15 Hospital Radiology [facility] 1.2.840.114 [id number] Univers 10:45:00 23:59:00 Encounter [place] 350.1.13.10 ity of [place] 4.2.7.2.686 [facility] [id number] [facility] [address] 2021-09-15 2021-09-15 Orders Doctor PENELOPE 1.2.840.114 [id number] Univers 00:00:00 00:00:00 Only Unassigned, ROSE MARY 350.1.13.10 ity of [place] [facility] 4.2.7.2.686 [place] [id number] [facility] [address] 2021-08-092021-08-09 Telemedici Brant, 1.2.840.1 [id number] [id number] Methodi 13:00:00 13:08:06 ne Maddy [address]23.1.[address] 3.430.2.7 Hospit a .3.132037 l .8 2021-08-09 2021-08-09 Telemedici Brant, 1.2.840.1 [id number] Methodi 13:00:00 13:08:06 ne Maddy 89912.1.[address] 3.430.2.7 Hospit a .3.363302 l .8 2021-07-31 2021-08-01 Outpatient ZOYA Brittany [facility] [id number] [facility] [place] 16:42:10 08:16:24 SVETLANA bravo of Medicin e 2021-06-12 2021-06-15 [facility]84 0.1 [id number] Methodi 16:33:00 15:42:00 Encounter Svetlana Cano 14602.1.[address] Aj, Turab 3.430.2.7 Ho spita .3.513945 l .8 2021-06-12 2021-06-15 [facility] 1.2.84 0.1 [id number] Methodi 16:33:00 15:42:00 Encounter Svetlana Cano 16280.1.[address] Aj, [place] 3.430.2.7 Ho spita .3.066592 l .8 2021-05-25 2021-05-25 Outpatient [facility] [id number] [facility] [place] 08:47:29 16:40:23 Marion bravo of Medicin e 2021-05-25 2021-05-25 Outpatient SULAIMAN Brittany Brittany [id number] [facility] [place] 08:52:28 14:12:09 LOVE bravo of Medicin e 2021-05-15 2021-05-15 Office CHELSEA KENNY 1.2.231.098 1512 2613 [facility] [place] 09:49:10 10:49:30 Visit SVETLANA MOJICA 350.1.13.21 College Y 0.2.7.2.686 [id number] Medi sky 300 e 2021-03-29 2021-03-29 Telephone Jaime, 1.2.840.7 [id number] Methodi 00:00:00 00:00:[address] 3.430.2.7 Hospit a .3.720037 l .8 2021-03-29 2021-03-29 Telephone Jaime, 1.2.840.5 [id number] Methodi 00:00:00 00:00:[address] 3.430.2.7 Hospit a .3.229916 l .8 2020-12-28 2020-12-29 Between nullFlavo [facility] [id number] Memoria 15:37:08 15:37:08 Visit r Primary 02 [facility] 2020-12-28 2020-12-29 Between nullFlavo [facility] [id number] Memoria 15:37:08 15:37:08 Visit r Primary 02 [facility] 2020-12-28 2020-12-29 Outpatient [facility] [id number] 09:37:08 09:37:08 02 2020-12-08 2020-12-09 Between nullFlavo [facility] [id number] Memoria 16:48:14 16:48:14 Visit r Primary 01 [facility] 2020-12-08 2020-12-09 Between nullFlavo [facility] [id number] Memoria 16:48:14 16:48:14 Visit r Primary 01 [facility] 2020-12-08 2020-12-09 Outpatient [facility] [id number] 11:48:14 11:48:14 2020-12-07 2020-12-07 Outpatient BRANT, [facility] [id number] [place] 00:00:00 00:00:00 HEAVENLY [address] 2020-11-11 2020-11-13 Phone nullFlavo [facility] [id number] Memoria 15:40:54 04:59:59 Message r Primary 00 l Care [facility] 2020-11-11 2020-11-13 Phone nullFlavo [facility] [id number] Memoria 15:40:54 04:59:59 Message r Primary 00 l Care [facility] 2020-11-11 2020-11-12 Outpatient [facility] [id number] 10:40:54 23:59:59 00 2020-10-01 2020-10-06 Inpatient [facility] 012 [id number] 25 [place] 00:00:00 00:00:00 SANDRA [address] 2020-05-13 2020-05-13 Outpatient TORI, HCAPM HCAPM [id number] [facility] 01:23:22 01:23:22 CHAYA 34 [facility] 2020-04-27 2020-04-27 Telemedici Obi Kerr 1.2.840.1 [id number] Methodi 15:36:30 16:10:42 [address]1.[address] 3.430.2.7 Hospit a .3.801575 l .8 2020-04-27 2020-04-27 Travel 1.2.840.1 1.2.543.107 0406 [id number] Methodi 00:00:00 00:00:[address] 3.430.2.7 0.2.7.3.698 Ho spita .3.150452 084.8 l .8 2020-04-26 2020-04-26 Travel 1.2.840.1 1.2.143.068 5167 [id number] Methodi 00:00:00 00:00:[address] 3.430.2.7 0.2.7.3.698 Ho spita .3.276278 084.8 l .8 2020-04-13 2020-04-18 Office Obi Kerr 1.2.840.1 [id number] Methodi 11:45:02 00:23:05 Visit Archie 28483.1.[address] 3.430.2.7 Hospit a .3.302818 l .8 2020-04-13 2020-04-13 Travel 1.2.840.1 1.2.010.155 2820 [id number] Methodi 00:00:00 00:00:[address] 3.430.2.7 0.2.7.3.698 Ho spita .3.534401 084.8 l .8 2020-04-05 2020-04-05 Abstract Sugar, 1.2.840.1 [id number] Methodi 00:00:00 00:00:[address] 3.430.2.7 Hospit a .3.755244 l .8 2020-04-04 2020-04-04 [facility] Obi 1.2.840.1 [id number] [id number] Methodi 13:34:38 14:35:21 Visit Archie 36930.1.[address] 3.430.2.7 Hospit a .3.344820 l .8 2020-04-04 2020-04-04 Travel 1.2.840.1 1.2.463.973 8643 [id number] Methodi 00:00:00 00:00:[address] 3.430.2.7 0.2.7.3.698 Ho spita .3.522724 084.8 l .8 2020-04-01 2020-04-01 Orders Sugar, 1.2.840.1 [id number] [id number] Methodi 00:00:00 00:00:00 Only Emilee 95453.1.[address] 3.430.2.7 Hospit a .3.099268 l .8 2020-04-01 2020-04-01 Travel 1.2.840.1 1.2.990.864 8463 [id number] Methodi 00:00:00 00:00:[address] 3.430.2.7 0.2.7.3.698 Ho spita .3.259776 084.8 l .8 2020-03-18 2020-03-26 [facility] Suzanne Arvizu 1.2.840 .1 [id number] Methodi 15:51:00 11:35:00 Encounter Clint King 71842.1.[address] [place] 3.430.2.7 Hos imelda .3.200606 l .8 2020-03-22 2020-03-22 Anesthesia Liu Mccloud 1.2.840.1 [id number] Methodi 12:47:00 16:31:00 Event GladysClint 34930.1.[address] 3.430.2.7 Hospit a .3.983283 l .8 2020-03-22 2020-03-22 Surgery Obi Kerr 1.2.840.1 [id number] 280 [id number] Methodi 12:53:00 14:38:[address] 3.430.2.7 Hospit a .3.131522 l .8 2019-11-19 2019-11-19 Office CHELSEA York 1.2.840.[id number] [place] [address] 10:50:53 15:23:52 Visit Oswald S AMBULATOR 350.1.13.21 College Y 0.2.7.2.686 of [id number] [facility] sky 300 e 2019-11-19 2019-11-19 Office CHELSEA York 1.2.840.114 [id number] 10:50:53 15:23:52 Visit Oswald S AMBULATOR 350.1.13.21 Y 0.2.7.2.686 [id number] 300 2019-11-11 2019-11-11 Emergency Wanda Pickens [facility] 1.2.840.114 [id number] [facility] 17:16:00 22:21:00 Lisa Pineda 350.1.13.10 i ty of [place] 4.2.7.2.686 [place] [facility] [id number] [facility] [address] 2019-11-11 2019-11-11 Emergency Wanda Pickens [facility] 1.2.840.114 78 [id number] 17:16:00 22:21:00 Lisa Pineda 350.1.13.10 Katie 4.2.7.2.686 [place] [id number] 084 2019-11-11 2019-11-11 Emergency X Wanda PICKENS [facility] ERT [id number] [employer] 17:16:00 17:16:00 ity [facility] 2019-11-03 2019-11-03 Telephone Melany, 1.2.840.1 [id number] 2100 [id number] Methodi 09:01:34 09:25:16 Consult Liss Baxter 05583.1.[address] 3.430.2.7 Hospit a .3.266385 l .8 2014-02-18 2014-02-18 Office [facility] [id number] Memoria 00:00:00 00:00:00 Visit artie Marquez [id number] [facility] 2014-02-18 2014-02-18 Lab Report [facility] [id number] [id number] Memoria 00:00:00 00:00:00 artie Marquez [id number] [facility] 2013-01-23 2013-01-23 Lab Report [facility] 1702 [id number] Memoria 00:00:00 00:00:00 artie Marquez [id number] [facility] Results Test Description Test Time Test Comments Results Result Comments Source HEMATOLOGY 2021-12-22 20:37:00 Test Item Value Reference Range Interpretation Comme nts Eosinophils # (test code = 0.5 See_Comment [Automated message] The system Eosinophils #) which generat ed this result transmitted ref erence range: <=0.5. The reference r za was not used to interpret this result as normal/abnormal . [facility]mapluoRNQJVWMYF1559-01-[facility] 20:37:00 Test Item Value Reference Range Interpretation Comments Glucose Lvl (test code = Glucose Lvl) 109 70-99 [facility]villeYbyecprTWMNQJXYB9678-79-63 20:37:00 Test Item Value Reference Range Interpretation Comments BUN (test code = BUN) 35 7-22 [facility]villeGselyvwNBAJZDLQY6426-28-18 20:37:00 Test Item Value Reference Range Interpretation Comments Creatinine Lvl (test code = Creatinine 3.70 0.50-1.40 Lvl) [facility]villeYjxuyvrRGHCZPSHL9159-19-47 20:37:00 Test Item Value Reference Range Interpretation Comments Sodium Lvl (test code = Sodium Lvl) 142 135-145 [facility] StephenvilleIzibbpyCPXOYERZZ7961-43-26 20:37:00 Test Item Value Reference Range Interpretation Comments Potassium Lvl (test code = Potassium 3.9 3.5-5.1 Lvl) [facility]villeYosxxavOIOCQWYGX0545-88-60 20:37:00 Test Item Value Reference Range Interpretation Comments Chloride Lvl (test code = Chloride Lvl) 108 95-109 [facility] StephenvilleCukvfryEOYRIWUND3375-18-09 20:37:00 Test Item Value Reference Range Interpretation Comments CO2 (test code = CO2) 26 24-32 [facility] StephenvilleRctrenlNRITXURIU2229-18-83 20:37:00 Test Item Value Reference Range Interpretation Comments Calcium Lvl (test code = Calcium Lvl) 7.8 8.5-10.5 [facility]villeGnrgdkuIKSEANSJZ4934-68-71 20:37:00 Test Item Value Reference Range Interpretation Comments AGAP (test code = AGAP) 11.9 10.0-20.0 [facility] StephenvilleGzyfindWLELCSDHO3897-45-31 20:37:00 Test Item Value Reference Range Interpretation Comments eGFR (test code = eGFR) 16 [facility]FpcjayuWJPGDWTUBN3519-83-60 20:37:00 Test Item Value Reference Range Interpretation Comments WBC X 10x3 (test code = WBC X 10x3) 9.8 3.7-10.4 [facility] CenterSteesrnEGSBPUAABR1940-69-69 20:37:00 Test Item Value Reference Range Interpretation Comments RBC X 10x6 (test code = RBC X 10x6) 2.88 4.70-6.10 [facility] CenterVzgjmxvHLGIYVGRNY0910-55-75 20:37:00 Test Item Value Reference Range Interpretation Comments Hgb (test code = Hgb) 8.4 14.0-18.0 [facility] CenterJtzqfyjMHIHNPCDCG7482-79-33 20:37:00 Test Item Value Reference Range Interpretation Comments Hct (test code = Hct) 25.7 42.0-54.0 [facility] CenterNmvxyogMAOTJSHDDM2254-31-99 20:37:00 Test Item Value Reference Range Interpretation Comments MCV (test code = MCV) 89.0 80.0-94.0 [facility] CenterJufnasxSXUIKRNQTP3410-10-32 20:37:00 Test Item Value Reference Range Interpretation Comments MCH (test code = MCH) 29.1 pg 27.0-31.0 [facility] CenterNhqoxzfKBWWTFOGEZ5260-96-77 20:37:00 Test Item Value Reference Range Interpretation Comments MCHC (test code = MCHC) 32.6 32.0-36.0 [facility] CenterQjbvxcdLYLHJETLHJ8398-90-15 20:37:00 Test Item Value Reference Range Interpretation Comments RDW (test code = RDW) 17.7 11.5-14.5 [facility] CenterJnamkdnIOCJHPQSFS1186-82-43 20:37:00 Test Item Value Reference Range Interpretation Comments Platelet (test code = Platelet) 346 133-450 [facility] CenterLosiskvZKHONTQXGG8898-74-60 20:37:00 Test Item Value Reference Range Interpretation Comments MPV (test code = MPV) 6.7 7.4-10.4 [facility] CenterVylufyqLCYGOWCJOK7495-94-87 20:37:00 Test Item Value Reference Range Interpretation Comments Segs (test code = Segs) 81.8 45.0-75.0 [facility] CenterPmbhgzpSLYCHSLEOC3752-32-20 20:37:00 Test Item Value Reference Range Interpretation Comments Lymphocytes (test code = Lymphocytes) 5.6 20.0-40.0 [facility] CenterYrzkunvEOLBRUXRID1683-16-61 20:37:00 Test Item Value Reference Range Interpretation Comments Monocytes (test code = Monocytes) 6.8 2.0-12.0 [facility] CenterKzgnkjlBLMGUDMQDK1323-90-46 20:37:00 Test Item Value Reference Range Interpretation Comments Eosinophils (test code = 5.3 See_Comment [A utomated message] The Eosinophils) system which ge nerated this result tra nsmitted reference range : <=4.0. The reference r za was not used to int erpret this result as normal/abnormal . [place] 945472-11-11 20:37:00 Test Item Value Reference Range Interpretation Comments Basophils (test code = 0.5 See_Comment [Aut omated message] The Basophils) system which ge nerated this result tra nsmitted reference range : <=1.0. The reference r za was not used to int erpret this result as normal/abnormal . [place] 945472-11-11 20:37:00 Test Item Value Reference Range Interpretation Comments Neutrophils # (test code = Neutrophils 8.0 1.5-8.1 #) [facility] CenterFzzzqtgEOBSGKSTVU3212-42-82 20:37:00 Test Item Value Reference Range Interpretation Comments Lymphocytes # (test code = Lymphocytes 0.5 1.0-5.5 #) [place] 945472-11-11 20:37:00 Test Item Value Reference Range Interpretation Comments Monocytes # (test code 0.7 See_Comment [Aut omated message] The = Monocytes #) system which generated this result tra nsmitted reference range : <=0.8. The reference r za was not used to int erpret this result as normal/abnormal . [place] 903242-11-11 20:37:00 Test Item Value Reference Range Interpretation Comments Glucose Lvl (test code = Glucose Lvl) 109 70-99 [facility]villeJaedymeKRWSEULEZ7069-57-10 20:37:00 Test Item Value Reference Range Interpretation Comments BUN (test code = BUN) 35 7-22 [facility]villeXyfkvkfAYRAROODH4922-12-39 20:37:00 Test Item Value Reference Range Interpretation Comments Creatinine Lvl (test code = Creatinine 3.70 0.50-1.40 Lvl) [facility] StephenvilleWhxludcYZVDEBVRW1576-80-97 20:37:00 Test Item Value Reference Range Interpretation Comments Sodium Lvl (test code = Sodium Lvl) 142 135-145 [facility] StephenvilleNtydevoMCCPNZZLD0804-00-22 20:37:00 Test Item Value Reference Range Interpretation Comments Potassium Lvl (test code = Potassium 3.9 3.5-5.1 Lvl) [facility] StephenvilleZzrkgcjHWDGDNZKA3513-85-86 20:37:00 Test Item Value Reference Range Interpretation Comments Chloride Lvl (test code = Chloride Lvl) 108 95-109 [place] 903242-11-11 20:37:00 Test Item Value Reference Range Interpretation Comments CO2 (test code = CO2) 26 24-32 [facility] StephenvilleMetvymyMAFXHDQLC3249-88-37 20:37:00 Test Item Value Reference Range Interpretation Comments Calcium Lvl (test code = Calcium Lvl) 7.8 8.5-10.5 [place] 903242-11-11 20:37:00 Test Item Value Reference Range Interpretation Comments AGAP (test code = AGAP) 11.9 10.0-20.0 [facility]IfzneywLZOUATEUM3533-71-95 20:37:00 Test Item Value Reference Range Interpretation Comments eGFR (test code = eGFR) 16 [facility] CenterUrhhcuhTRMUGRLSTQ6381-40-42 20:37:00 Test Item Value Reference Range Interpretation Comments WBC X 10x3 (test code = WBC X 10x3) 9.8 3.7-10.4 [facility] CenterGhexvjfSZSFGXLOMQ0924-16-33 20:37:00 Test Item Value Reference Range Interpretation Comments RBC X 10x6 (test code = RBC X 10x6) 2.88 4.70-6.10 [facility] CenterEfkmagiCPUIBOKUBM9497-47-95 20:37:00 Test Item Value Reference Range Interpretation Comments Hgb (test code = Hgb) 8.4 14.0-18.0 [facility] CenterEjvyhojUSEZESHHCM0558-67-47 20:37:00 Test Item Value Reference Range Interpretation Comments Hct (test code = Hct) 25.7 42.0-54.0 [facility] CenterWmhvnpfEVCNOCRYHL0651-88-33 20:37:00 Test Item Value Reference Range Interpretation Comments MCV (test code = MCV) 89.0 80.0-94.0 [facility] CenterZupvkbaWTGGYGYDXR6955-65-81 20:37:00 Test Item Value Reference Range Interpretation Comments MCH (test code = MCH) 29.1 pg 27.0-31.0 [facility] CenterKvpolciREQITQEXZG2497-50-22 20:37:00 Test Item Value Reference Range Interpretation Comments MCHC (test code = MCHC) 32.6 32.0-36.0 [facility] CenterVoeazoaHPMIJPWVNA3658-81-22 20:37:00 Test Item Value Reference Range Interpretation Comments RDW (test code = RDW) 17.7 11.5-14.5 [facility] CenterQpusmggTMRDANUGKH1226-28-67 20:37:00 Test Item Value Reference Range Interpretation Comments Platelet (test code = Platelet) 346 133-450 [facility] CenterRyzrowlGDQRPZFXAR5858-30-86 20:37:00 Test Item Value Reference Range Interpretation Comments MPV (test code = MPV) 6.7 7.4-10.4 [facility] CenterMekwfdiEWVCJLHBED1068-05-56 20:37:00 Test Item Value Reference Range Interpretation Comments Segs (test code = Segs) 81.8 45.0-75.0 [place] 945472-11-11 20:37:00 Test Item Value Reference Range Interpretation Comments Lymphocytes (test code = Lymphocytes) 5.6 20.0-40.0 [place] 945472-11-11 20:37:00 Test Item Value Reference Range Interpretation Comments Monocytes (test code = Monocytes) 6.8 2.0-12.0 [place] 945472-11-11 20:37:00 Test Item Value Reference Range Interpretation Comments Eosinophils (test code = 5.3 See_Comment [A utomated message] The Eosinophils) system which ge nerated this result tra nsmitted reference range : <=4.0. The reference r za was not used to int erpret this result as normal/abnormal . [place] [address]-11-11 20:37:00 Test Item Value Reference Range Interpretation Comments Basophils (test code = 0.5 See_Comment [Aut omated message] The Basophils) system which ge nerated this result tra nsmitted reference range : <=1.0. The reference r za was not used to int erpret this result as normal/abnormal . [facility] CenterLeqjawyPXJHFIYUFF1763-40-51 20:37:00 Test Item Value Reference Range Interpretation Comments Neutrophils # (test code = Neutrophils 8.0 1.5-8.1 #) [place] [address]-11-11 20:37:00 Test Item Value Reference Range Interpretation Comments Lymphocytes # (test code = Lymphocytes 0.5 1.0-5.5 #) [place] 945472-11-11 20:37:00 Test Item Value Reference Range Interpretation Comments Monocytes # (test code 0.7 See_Comment [Aut omated message] The = Monocytes #) system which generated this result tra nsmitted reference range : <=0.8. The reference r za was not used to int erpret this result as normal/abnormal . [place] [address]-11-11 20:37:00 Test Item Value Reference Range Interpretation Comments Eosinophils # (test code 0.5 See_Comment [A utomated message] The = Eosinophils #) system ic h generated this result tra nsmitted reference range : <=0.5. The reference r za was not used to int erpret this result as normal/abnormal . [facility] SouthWmkvxhaDQRVMH0694-12-09 20:59:51 Test Item Value Reference Range Interpretation [...] identified.Sekou Santiago MD On 12/19/2021 14:58:37; [id number] [place] [id number] 20:59:51 Test Item Value Reference Range Interpretation [...] identified.Sekou Santiago MD On 12/19/2021 14:58:37; [id number] [facility]villeOjxbbbcTNAAMPIVS3251-28-62 10:34:00 Test Item Value Reference Range Interpretation Comments Phosphorus (test code = Phosphorus) 3.9 2.5-4.5 [facility] StephenvilleIinfsxqECTRQNZNJ1544-07-39 10:34:00 Test Item Value Reference Range Interpretation Comments Magnesium Lvl (test code = Magnesium 2.4 1.8-2.4 Lvl) [facility] StephenvilleKwoktjoPKKWBGXOH6018-70-98 10:34:00 Test Item Value Reference Range Interpretation Comments Total Protein (test code = Total 6.2 6.4-8.4 Protein) [facility] StephenvilleXrnloliBRQUUOKDM2734-80-46 10:34:00 Test Item Value Reference Range Interpretation Comments Albumin Lvl (test code = Albumin Lvl) 2.9 3.5-5.0 [facility] StephenvilleWexqaidHHMCZCBXB3111-54-96 10:34:00 Test Item Value Reference Range Interpretation Comments ALT (test code = ALT) 15 See_Comment [Auto mated message] The system which ge nerated this result transmit amado reference range : <=65. The reference range was not used to interpr et this result as shauna l/abnormal. [facility] StephenvilleIrgefzlTIWMGFPQO2700-42-49 10:34:00 Test Item Value Reference Range Interpretation Comments AST (test code = AST) 20 See_Comment [Auto mated message] The system which ge nerated this result transmit amado reference range : <=37. The reference range was not used to interpr et this result as shauna l/abnormal. [facility] StephenvilleExgzmxaOHUKIWYQM7223-84-14 10:34:00 Test Item Value Reference Range Interpretation Comments Alk Phos (test code = Alk Phos) 77 39-136 [facility] StephenvilleRtwamumIVUVLRWZA8692-79-77 10:34:00 Test Item Value Reference Range Interpretation Comments Bili Total (test code = Bili Total) 0.4 0.2-1.3 [facility] StephenvilleGfchiobSZQZMSPZJ9197-94-10 10:34:00 Test Item Value Reference Range Interpretation Comments Bili Direct (test code 0.1 See_Comment [Aut omated message] The = Bili Direct) system which generated this result tra nsmitted reference range : <=0.3. The reference r za was not used to int erpret this result as shauna l/abnormal. [facility] StephenvilleJgxrimrNBELFVMAG2363-13-47 10:34:00 Test Item Value Reference Range Interpretation Comments Bili Indirect (test 0.3 See_Comment [Automa amado message] The code = Bili Indirect) system which generated this result tra nsmitted reference range : <=1.0. The reference r za was not used to int erpret this result as normal/abnormal . [facility] StephenvilleVhyajsmGSIRXPCBD6539-30-48 10:34:00 Test Item Value Reference Range Interpretation Comments Globulin (test code = Globulin) 3.3 2.7-4.2 [facility] StephenvilleZilxwypDDXNWMRDT6442-00-88 10:34:00 Test Item Value Reference Range Interpretation Comments A/G Ratio (test code = A/G Ratio) 0.9 1 0.7-1.6 [facility] StephenvilleFhwuupnSANOZRYSY0777-72-14 10:34:00 Test Item Value Reference Range Interpretation Comments Phosphorus (test code = Phosphorus) 3.9 2.5-4.5 [facility] StephenvilleEsqhdqfMHXKVQBAY0270-29-38 10:34:00 Test Item Value Reference Range Interpretation Comments Magnesium Lvl (test code = Magnesium 2.4 1.8-2.4 Lvl) [facility] StephenvilleNomimonEIMVIIOJG5353-87-27 10:34:00 Test Item Value Reference Range Interpretation Comments Total Protein (test code = Total 6.2 6.4-8.4 Protein) [facility] StephenvilleLtpyrnbBHRRBIMVK0248-32-11 10:34:00 Test Item Value Reference Range Interpretation Comments Albumin Lvl (test code = Albumin Lvl) 2.9 3.5-5.0 [facility] StephenvilleCkssquxSWJERFKWN0894-29-99 10:34:00 Test Item Value Reference Range Interpretation Comments ALT (test code = ALT) 15 See_Comment [Auto mated message] The system which ge nerated this result transmit amado reference range : <=65. The reference range was not used to interpr et this result as shauna l/abnormal. [facility] StephenvilleGnlpjlzHCGHRBJAZ3454-06-96 10:34:00 Test Item Value Reference Range Interpretation Comments AST (test code = AST) 20 See_Comment [Auto mated message] The system which ge nerated this result transmit amado reference range : <=37. The reference range was not used to interpr et this result as shauna l/abnormal. [facility] StephenvilleGorimemWVWNLTYSE9028-84-27 10:34:00 Test Item Value Reference Range Interpretation Comments Alk Phos (test code = Alk Phos) 77 39-136 [facility] StephenvilleVrqmuotBWZYMVORW7165-79-04 10:34:00 Test Item Value Reference Range Interpretation Comments Bili Total (test code = Bili Total) 0.4 0.2-1.3 [facility] StephenvilleQdcdcrpQNXSWCLYQ8746-34-86 10:34:00 Test Item Value Reference Range Interpretation Comments Bili Direct (test code 0.1 See_Comment [Aut omated message] The = Bili Direct) system which generated this result tra nsmitted reference range : <=0.3. The reference r za was not used to int erpret this result as shauna l/abnormal. [facility] HospitalVstgxhjWRBXPJHYY4777-60-73 10:34:00 Test Item Value Reference Range Interpretation Comments Bili Indirect (test 0.3 See_Comment [Automa amado message] The code = Bili Indirect) system which generated this result tra nsmitted reference range : <=1.0. The reference r za was not used to int erpret this result as normal/abnormal . [facility] HospitalHedlfwvPMQKHTBMU8658-00-88 10:34:00 Test Item Value Reference Range Interpretation Comments Globulin (test code = Globulin) 3.3 2.7-4.2 [facility] HospitalJayryrfDCIBVNVDH5706-89-96 10:34:00 Test Item Value Reference Range Interpretation Comments A/G Ratio (test code = A/G Ratio) 0.9 1 0.7-1.6 [facility] HospitalCultivate IT Solutions & Management Pvt[employer] [facility] [id number] 13:09:00 Test Item Value Reference Range Interpretation Comments RBC product (test code Product available = RBC product) 3(12/18/21 7:09 AM) [facility] [employer] [facility] [id number] 13:09:00 Test Item Value Reference Range Interpretation Comments RBC product (test code Product available = RBC product) 3(12/18/21 7:09 AM) [place] 09651022-11-06 11:40:13 Test Item Value Reference Range Interpretation [...] thrombosis. Nazia Sanford MD On 12/17/2021 05:39:24; [id number] [facility] SouthFchemujCZQKRN3251-23-91 11:40:13 Test Item Value Reference Range Interpretation [...] thrombosis. Nazia Sanford MD On 12/17/2021 05:39:24; [id number] [facility] ZCAPPOZUSQ9590-10-77 01:41:00 Test Item Value Reference Range Interpretation Comments Source Respiratory Nasophrngl Swb Panel PCR (test code = *NA*(12/16/21 8:41 PM) Source Respiratory Panel PCR) [facility]2022-11-06 01:41:00 Test Item Value Reference Range Interpretation Comments Influenza A PCR (test Negative *NA*(12/16/21 code = Influenza A PCR) 8:41 PM) [facility] QBCONHEHZK0242-71-74 01:41:00 Test Item Value Reference Range Interpretation Comments Influenza B PCR (test Negative *NA*(12/16/21 code = Influenza B PCR) 8:41 PM) [facility]2022-11-06 01:41:00 Test Item Value Reference Range Interpretation Comments RSV PCR (test code = Negative *NA*(12/16/21 RSV PCR) 8:41 PM) [facility]2022-11-06 01:41:00 Test Item Value Reference Range Interpretation Comments Source Respiratory Nasophrngl Swb Panel PCR (test code = *NA*(12/16/21 8:41 PM) Source Respiratory Panel PCR) [facility]2022-11-06 01:41:00 Test Item Value Reference Range Interpretation Comments Influenza A PCR (test Negative *NA*(12/16/21 code = Influenza A PCR) 8:41 PM) [facility]2022-11-06 01:41:00 Test Item Value Reference Range Interpretation Comments Influenza B PCR (test Negative *NA*(12/16/21 code = Influenza B PCR) 8:41 PM) [facility]2022-11-06 01:41:00 Test Item Value Reference Range Interpretation Comments RSV PCR (test code = Negative *NA*(12/16/21 RSV PCR) 8:41 PM) [place] [address]1022-11-06 01:08:35 Test Item Value Reference Range Interpretation [...] arteries: Surgically absent right main renal artery. 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 Left iliac arteries: Iyhv-qt-pfocuxfc atherosclerosis throughout the left common iliac artery, [...] arthrosis associated with multilevel disc bulges causing jstl-xn-cmakakda spinal canal narrowing and neural foraminal narrowing [...] and understood.Anoop Mays MD On 12/16/2021 20:07:19; [id number] [facility] HospitalRrlsspdEFRXWE3994-29-50 01:08:35 Test Item Value Reference Range Interpretation [...] arteries: Surgically absent right main renal artery. Vljq-hd-iirgvlrz atherosclerosis in narrowing in the left main renal artery. Right iliac arteries: Pymx-lx-shkicpwm atherosclerosis throughout the right common iliac artery, right external iliac artery, and right internal iliac artery causing mild multifocal narrowing. Left iliac arteries: Dyao-kq-ibeplknd atherosclerosis throughout the left common iliac artery, [...] arthrosis associated with multilevel disc bulges causing cowf-rw-ghtwiors spinal canal narrowing and neural foraminal narrowing [...] and understood.Anoop Mays MD On 12/16/2021 20:07:19; [id number] [facility] AllianceIhfcumzLBFOQVSFV1707-63-42 16:02:00 Test Item Value Reference Range Interpretation Comments Lipase Lvl (test code = Lipase Lvl) 99 73-393 [facility] HospitalIlcmslwZVNATYZLV8483-23-40 16:02:00 Test Item Value Reference Range Interpretation Comments Procalcitonin Lvl (test 0.99 See_Comment [Au tomated message] code = Procalcitonin Lvl) e system which generated this result transmitted ref erence range: <=0.10. The reference range was not used to interpr et this result as normal/abnormal . [facility] AllianceHbxevvxPRUWDXNIC6160-68-06 16:02:00 Test Item Value Reference Range Interpretation Comments Ketone Quantitative (test code = Ketone 0.44 Quantitative) [facility] StephenvilleKhchwnaJYVELUGPU6184-43-09 16:02:00 Test Item Value Reference Range Interpretation Comments Ethanol Lvl (test code = Ethanol <3.0 mg/dL Lvl) [place] [address]-11-05 16:02:00 Test Item Value Reference Range Interpretation Comments Etoh (%) (test code = Etoh (%)) <0.003 % [place] 903242-11-05 16:02:00 Test Item Value Reference Range Interpretation Comments Hgb A1C (test code = Hgb A1C) 5.1 [place] 903242-11-05 16:02:00 Test Item Value Reference Range Interpretation Comments LDL (Calculated) (test code = LDL 37 (Calculated)) [address]11-05 16:02:00 Test Item Value Reference Range Interpretation Comments VLDL (test code = VLDL) 39 1 [place] 903242-11-05 16:02:00 Test Item Value Reference Range Interpretation Comments Trig (test code = Trig) 195 [place] [address]-11-05 16:02:00 Test Item Value Reference Range Interpretation Comments Chol (test code = Chol) 101 [facility] StephenvillePsyiwuwRPDEUGFOR5731-47-82 16:02:00 Test Item Value Reference Range Interpretation Comments HDL (test code = HDL) 25 [place] [address]-11-05 16:02:00 Test Item Value Reference Range Interpretation Comments Chol/HDL Ratio (test code = Chol/HDL 4.04 1 4.00-7.30 Ratio) [place] [address]-11-05 16:02:00 Test Item Value Reference Range Interpretation Comments TSH (test code = TSH) 0.890 0.360-3.740 [place] [address]-11-05 16:02:00 Test Item Value Reference Range Interpretation Comments Lactic Acid Lvl (test code = Lactic 1.2 0.5-2.2 Acid Lvl) [place] [address]-11-05 16:02:00 Test Item Value Reference Range Interpretation Comments PTT (test code = PTT) 32.8 s 22.9-35.8 [place] 945472-11-05 16:02:00 Test Item Value Reference Range Interpretation Comments PT (test code = PT) 15.8 s 12.0-14.7 [facility] CenterUazzaveMYOILZHKOO8829-13-62 16:02:00 Test Item Value Reference Range Interpretation Comments INR (test code = INR) 1.27 1 0.85-1.17 [place] [address]-11-05 16:02:00 Test Item Value Reference Range Interpretation Comments Hep A IgM (test code = Hep A NON-REACTIVE IgM) [facility]XkwbwdqOSHYDPFPVY0309-27-07 16:02:00 Test Item Value Reference Range Interpretation Comments Hep Bs Ag (test code = Hep Bs NON-REACTIVE Ag) [facility] TexasYuqazqnWCBSSTVLKO2567-09-97 16:02:00 Test Item Value Reference Range Interpretation Comments Hep B Core IgM (test code = Hep NON-REACTIVE B Core IgM) [place] 428972-11-05 16:02:00 Test Item Value Reference Range Interpretation Comments Hep C Ab (test code = Hep C Ab) NON-REACTIVE [place] 428972-11-05 16:02:00 Test Item Value Reference Range Interpretation Comments Hep Signal to Cut-Off (test code = Hep no gt Signal to Cut-Off) [facility]villeKqvumphWZXTSREXA3365-72-75 16:02:00 Test Item Value Reference Range Interpretation Comments Lipase Lvl (test code = Lipase Lvl) 99 73-393 [facility] StephenvilleXpunwwyIRLTCWPHT9841-14-51 16:02:00 Test Item Value Reference Range Interpretation Comments Procalcitonin Lvl (test 0.99 See_Comment [Au tomated message] code = Procalcitonin Lvl) Th e system which generated this result transmitted ref erence range: <=0.10. The reference range was not used to interpr et this result as normal/abnormal . [facility] StephenvilleWylkjbwJJXUSJJUL4609-42-80 16:02:00 Test Item Value Reference Range Interpretation Comments Ketone Quantitative (test code = Ketone 0.44 Quantitative) [place] 903242-11-05 16:02:00 Test Item Value Reference Range Interpretation Comments Ethanol Lvl (test code = Ethanol <3.0 mg/dL Lvl) [facility] StephenvilleBoevaasXAVCPYEBJ5728-95-84 16:02:00 Test Item Value Reference Range Interpretation Comments Etoh (%) (test code = Etoh (%)) <0.003 % [facility] StephenvilleYiawubyMYMWUIMRX3537-00-53 16:02:00 Test Item Value Reference Range Interpretation Comments Hgb A1C (test code = Hgb A1C) 5.1 [facility] StephenvilleCtvkhcvYPHZLOWET4533-37-18 16:02:00 Test Item Value Reference Range Interpretation Comments LDL (Calculated) (test code = LDL 37 (Calculated)) [facility] StephenvilleByzjlfiAHZWACLFO3343-65-98 16:02:00 Test Item Value Reference Range Interpretation Comments VLDL (test code = VLDL) 39 1 [place] 903242-11-05 16:02:00 Test Item Value Reference Range Interpretation Comments Trig (test code = Trig) 195 [facility] StephenvilleHzutlxdENOSNCIBF0296-93-74 16:02:00 Test Item Value Reference Range Interpretation Comments Chol (test code = Chol) 101 [facility] StephenvilleTuznoqoQRJGUVBJM1656-18-67 16:02:00 Test Item Value Reference Range Interpretation Comments HDL (test code = HDL) 25 [facility] StephenvilleYpcqjgbWLCBTXURS5177-08-91 16:02:00 Test Item Value Reference Range Interpretation Comments Chol/HDL Ratio (test code = Chol/HDL 4.04 1 4.00-7.30 Ratio) [facility] StephenvillePqlikyuNFQAWEZAH3471-86-85 16:02:00 Test Item Value Reference Range Interpretation Comments TSH (test code = TSH) 0.890 0.360-3.740 [facility] StephenvilleVgkdfziRGZCLNKVD0616-36-91 16:02:00 Test Item Value Reference Range Interpretation Comments Lactic Acid Lvl (test code = Lactic 1.2 0.5-2.2 Acid Lvl) [facility] CenterUirkvseWIAVTWAYYG0222-60-67 16:02:00 Test Item Value Reference Range Interpretation Comments PTT (test code = PTT) 32.8 s 22.9-35.8 [place] 945472-11-05 16:02:00 Test Item Value Reference Range Interpretation Comments PT (test code = PT) 15.8 s 12.0-14.7 [place] [address]-11-05 16:02:00 Test Item Value Reference Range Interpretation Comments INR (test code = INR) 1.27 1 0.85-1.17 [place] [address]-11-05 16:02:00 Test Item Value Reference Range Interpretation Comments Hep A IgM (test code = Hep A NON-REACTIVE IgM) [address]11-05 16:02:00 Test Item Value Reference Range Interpretation Comments Hep Bs Ag (test code = Hep Bs NON-REACTIVE Ag) [facility] TexasChjqyokNYPAMWNDZE9182-53-15 16:02:00 Test Item Value Reference Range Interpretation Comments Hep B Core IgM (test code = Hep NON-REACTIVE B Core IgM) [facility] TexasWctzwrfLSORSEYWQM8629-37-60 16:02:00 Test Item Value Reference Range Interpretation Comments Hep C Ab (test code = Hep C Ab) NON-REACTIVE [facility] TexasYnzrdwpBLZMTYYZJR9792-04-43 16:02:00 Test Item Value Reference Range Interpretation Comments Hep Signal to Cut-Off (test code = Hep no gt Signal to Cut-Off) [facility] AllianceJ.G. [employer] [facility] WLNQSVI1768-77-19 11:52:00 Test Item Value Reference Range Interpretation Comments ABO/Rh (test code = ABO/Rh) O POS [facility] [employer] [facility] REHDQYM5590-54-81 11:52:00 Test Item Value Reference Range Interpretation Comments Antibody Scrn (test Negative (12/16/21 6:52 code = Antibody Scrn) AM) [facility] HospitalQgtvkemHMDXNNPIN5735-84-43 11:52:00 Test Item Value Reference Range Interpretation Comments Ca Ion WB (test code = Ca Ion WB) 1.05 1.05-1.25 [facility] AllianceVlaxdfyOAUMKLBBG0728-50-52 11:52:00 Test Item Value Reference Range Interpretation Comments Ca Ion at pH 7.4 WB (test code = Ca Ion 1.07 1.05-1.25 at pH 7.4 WB) [facility] HospitalTvggnghTTTAMEHNXA0696-15-37 11:52:00 Test Item Value Reference Range Interpretation Comments RBC Morph (test code = Normal (12/16/21 6:52 RBC Morph) AM) [facility] HospitalSslztdoABVMNUTDFQ5217-57-03 11:52:00 Test Item Value Reference Range Interpretation Comments Plt Morph (test code = Normal (12/16/21 6:52 Plt Morph) AM) [facility] [employer] [facility] [id number] 11:52:00 Test Item Value Reference Range Interpretation Comments ABO/Rh (test code = ABO/Rh) O POS [facility] AllianceJ.G. [employer] [facility] KXVXUBX5151-08-71 11:52:00 Test Item Value Reference Range Interpretation Comments Antibody Scrn (test Negative (12/16/21 6:52 code = Antibody Scrn) AM) [facility] HospitalMoiatudPUUVHZTHH9699-36-00 11:52:00 Test Item Value Reference Range Interpretation Comments Ca Ion WB (test code = Ca Ion WB) 1.05 1.05-1.25 [facility] StephenvilleImefssqBIXTZDKIY2455-22-86 11:52:00 Test Item Value Reference Range Interpretation Comments Ca Ion at pH 7.4 WB (test code = Ca Ion 1.07 1.05-1.25 at pH 7.4 WB) [facility]PlrlbyqMLTBDVHGQH2561-01-66 11:52:00 Test Item Value Reference Range Interpretation Comments RBC Morph (test code = Normal (12/16/21 6:52 RBC Morph) AM) [facility] CenterHknwynkZQEMFPFXKU9700-19-71 11:52:00 Test Item Value Reference Range Interpretation Comments Plt Morph (test code = Normal (12/16/21 6:52 Plt Morph) AM) [facility] WYFDC1307-96-60 07:53:52 Test Item Value Reference Range Interpretation [...] (test code = 697) EGFR (BEAKER) 19 Interpretatio n of eGFR (test code = mL/min/1.73 values Stage D escription 1092) sq m Result G1 Shauna l or high >=90 G2 Mildly decreased 60-89 G3a Mildl y to moderately 45-5 9 G3b Moderately to s everely 30-44 G4 Severl y decreased 15-29 G5 Kidney failure <15Reported eGF R is based on the CKD-EPI 2020 equation that d oes not use a race coefficientEsti mated GFR is not as accur ate as Creatinine Mercedes fisher in predicting glom erular filtration rate . Estimated GFR is not appl icable for dialysis patien ts Project Associate ID - KEIKO BCBC W/PLT COUNT & AUTO GZKBKFJGKWYQ8178-02-49 06:30:27 Test Item Value Reference Range Interpretation [...] PERCENT (BEAKER) (test code = 2801) CT, [id number] 15:16:00Reason for exam:->diverticulitisWhat is the patient's sedation requirement?->No [facility]ation [facility] : 1945 Sex: MFINAL REPORT CT abdomen [...] Ryan Thompson MDReport Verified Date/Time: 12/11/2021 15:16:47 BASIC METABOLIC [id number] 08:00:53 Test Item Value Reference Range Interpretation [...] eGF R is based on the CKD-EPI 2021 equation that d oes not use a race coefficientEsti mated GFR is not as accur ate as Creatinine Mercedes fisher in predicting glom erular filtration rate . Estimated GFR is not appl icable for dialysis patien ts Project Associate ID - TOO MHEPATITIS B SURFACE [id number] 07:02:25 Test Item Value Reference Range Interpretation Comments HEPATITIS B SURFACE ANTIGEN (2) Nonreactive Nonreactive (BEAKER) (test code = 2585) Specimen is considered negative for HBsAg.CBC W/PLT COUNT & AUTO ANPKNSNUOVTD7264-95-23 05:50:36 Test Item Value Reference Range Interpretation [...] 0.00-1.00 PERCENT (BEAKER) (test code = 2801) LRMKLLNKIL0768-07-39 15:25:56 Test Item Value Reference Range Interpretation Comments PHOSPHORUS (BECHRISSY) (test code = 4.2 mg/dL 2.3-4.7 604) Project Associate ID - PIRADHA LC-REACTIVE [id number] 12:05:31 Test Item Value Reference Range Interpretation Comments C-REACTIVE PROTEIN (CELY) (test 11.71 mg/dL 0.00-0.50 H code = 676) Project Associate ID - PIAYA LSARS-CoV2/RT-PCR (Asymptomatic ONLY)2021-12-10 11:51:55 Test Item Value Reference Interpretation Comments Range SARS-COV2/RT-PCR Negative Negative The SARS-Co V-2 (test code = target nucleic 74155-2) acids are not detected in thi s [...] revoked sooner. Fact Sheet for Healthcare Providers: https://www.Factorli.com/Documents/Xp ert%20Xpress%20SAR S%20CoV-2/Fact%20S heets/302-3802%20S ARS-COV-2%20HEALTH CARE%20PROVIDERS%2 0FACT%20SHEET.pdf Fact Sheet for Healthcare Patients: https://www.Weblance/Documents/Xp ert%20Xpress%20SAR S%20CoV-2/Fact%20S heets/302-3801%20S ARS-COV-2%20PATIEN T%20FACT%20SHEET.p df Lab Interpretation Normal (test code = 69872-5) [facility]Asymptomatic ONLY)2021-12-10 11:51:55 Test Item Value Reference Interpretation Comments Range SARS-COV2/RT-PCR Negative Negative The SARS-Co V-2 (test code = target nucleic 59584-6) acids are not detected in thi s [...] revoked sooner. Fact Sheet for Healthcare Providers: https://www.[employer]/Documents/Xp ert%20Xpress%20SAR S%20CoV-2/Fact%20S heets/302-3802%20S ARS-COV-2%20HEALTH CARE%20PROVIDERS%2 0FACT%20SHEET.pdf Fact Sheet for Healthcare Patients: https://www.[employer]/Documents/Xp ert%20Xpress%20SAR S%20CoV-2/Fact%20S heets/3023801%20S ARS-COV-2%20PATIEN T%20FACT%20SHEET.p df Lab Interpretation Normal (test code = 77061-5) [facility]21-12-10 11:51:55 Test Item Value Reference Interpretation Comments Range SARS-COV2/RT-PCR Negative Negative The SARS-Co V-2 (test code = target nucleic 83310-0) acids are not detected in thi s [...] revoked sooner. Fact Sheet for Healthcare Providers: https://www.Weblance/Documents/Xp ert%20Xpress%20SAR S%20CoV-2/Fact%20S heets/3023802%20S ARS-COV-2%20HEALTH CARE%20PROVIDERS%2 0FACT%20SHEET.pdf Fact Sheet for Healthcare Patients: https://www.[employer]/Documents/Xp ert%20Xpress%20SAR S%20CoV-2/Fact%20S heets/302-3801%20S ARS-COV-2%20PATIEN T%20FACT%20SHEET.p df Lab Interpretation Normal (test code = 03805-9) [facility]2021-12-10 11:51:55 Test Item Value Reference Interpretation Comments Range SARS-COV2/RT-PCR Negative Negative The SARS-Co V-2 (test code = target nucleic 94541-8) acids are not detected in thi s [...] revoked sooner. Fact Sheet for Healthcare Providers: https://www.Weblance/Documents/Xp ert%20Xpress%20SAR S%20CoV-2/Fact%20S heets/302-3802%20S ARS-COV-2%20HEALTH CARE%20PROVIDERS%2 0FACT%20SHEET.pdf Fact Sheet for Healthcare Patients: https://www.Weblance/Documents/Xp ert%20Xpress%20SAR S%20CoV-2/Fact%20S heets/302-3801%20S ARS-COV-2%20PATIEN T%20FACT%20SHEET.p df Lab Interpretation Normal (test code = 41932-6) [facility]2021-12-10 11:51:55 Test Item Value Reference Interpretation Comments Range SARS-COV2/RT-PCR Negative Negative The SARS-Co V-2 (test code = target nucleic 75047-7) acids are not detected in thi s [...] revoked sooner. Fact Sheet for Healthcare Providers: https://www.Weblance/Documents/Xp ert%20Xpress%20SAR S%20CoV-2/Fact%20S heets/3023802%20S ARS-COV-2%20HEALTH CARE%20PROVIDERS%2 0FACT%20SHEET.pdf Fact Sheet for Healthcare Patients: https://www.Weblance/Documents/Xp ert%20Xpress%20SAR S%20CoV-2/Fact%20S heets/302-3801%20S ARS-COV-2%20PATIEN T%20FACT%20SHEET.p df Lab Interpretation Normal (test code = 15523-0) [facility]2021-12-10 11:51:55 Test Item Value Reference Interpretation Comments Range SARS-COV2/RT-PCR Negative Negative The SARS-Co V-2 (test code = target nucleic 38496-5) acids are not detected in thi s [...] revoked sooner. Fact Sheet for Healthcare Providers: https://www.Weblance/Documents/Xp ert%20Xpress%20SAR S%20CoV-2/Fact%20S heets/302-3802%20S ARS-COV-2%20HEALTH CARE%20PROVIDERS%2 0FACT%20SHEET.pdf Fact Sheet for Healthcare Patients: https://www.Weblance/Documents/Xp ert%20Xpress%20SAR S%20CoV-2/Fact%20S heets/302-3801%20S ARS-COV-2%20PATIEN T%20FACT%20SHEET.p df Lab Interpretation Normal (test code = 76267-8) [facility])2021-12-10 11:51:55 Test Item Value Reference Range Interpretation Comments SARS-COV2/RT-PCR Negative Negative The SARS-Co V-2 target (test code = nucleic acids a re not 5173455) detected in thi s specimen. Negative result [...] revoked sooner. Fact Sheet for Healthcare Providers: https://www.[employer] m/Documents/Xpert%20Xpress%20SARS%20CoV-2/Fact%20Sheets/3023802%51EZXS-WOY-4%20 HEALTHCARE%20PROVIDERS%20FACT%20SHEET.pdf Fact Sheet for Healthcare Patients: https://www.[employer]/Documents/Xpert%20Xp ress%20SARS%20CoV-2/Fact%20Sheets/3023801%18MNBM-SUJ-7%20PATIENT%20FACT%20SHEET .pdfBASIC METABOLIC [id number] 05:41:17 Test Item Value Reference Range Interpretation [...] (test code = 697) EGFR (BEAKER) 15 Interpretati on of eGFR (test code = [...] not appl icable for dialysis patien ts Project Associate ID - [id number] LCBC W/PLT COUNT & AUTO [id number] 04:58:29 Test Item Value Reference Range Interpretation [...] (BEAKER) (test code = 2801) HEMOGLOBIN AND [id number] 19:02:09 Test Item Value Reference Range Interpretation Comments HEMOGLOBIN (BEAKER) (test code = 11.6 GM/DL 13.7-17.5 L 410) HEMATOCRIT (BEAKER) (test code = 37.0 % 40.1-51.0 L 411) Project Associate ID - [id number] 22:14:01 Test Item Value Reference Range Interpretation Comments Ventricular rate (test code = 253) Atrial rate (test code = 255) CT interval (test code = 266) QRSD interval [...] of 12-JUN-2021 16:49,-No significant change was found- [address]2022-05-04 22:14:01 Test Item Value Reference Range Interpretation Comments Ventricular rate (test code = 253) Atrial rate (test code = 255) CT interval (test code = 266) QRSD interval [...] of 12-JUN-2021 16:49,-No significant change was found- [address]2022-05-04 22:14:01 Test Item Value Reference Range Interpretation Comments Ventricular rate (test code = 253) Atrial rate (test code = 255) CT interval (test code = 266) QRSD interval [...] of 12-JUN-2021 16:49,-No significant change was found- [address]2022-05-04 22:14:01 Test Item Value Reference Range Interpretation Comments Ventricular rate (test code = 253) Atrial rate (test code = 255) CT interval (test code = 266) QRSD interval [...] of 12-JUN-2021 16:49,-No significant change was found- [facility] 12 [id number] 22:14:01 Test Item Value Reference Range Interpretation Comments Ventricular rate (test code = 253) Atrial rate (test code = 255) CT interval (test code = 266) QRSD interval [...] of 12-JUN-2021 16:49,-No significant change was found- [facility] 12 [id number] 22:14:01 Test Item Value Reference Range Interpretation Comments Ventricular rate (test code = 253) Atrial rate (test code = 255) CT interval (test code = 266) QRSD interval [...] of 12-JUN-2021 16:49,-No significant change was found- [facility] [Presence] in Respiratory specimen by GREGORIO with probe [id number] 16:18:00 Test Item Value Reference Range Interpretation Comments SARS-CoV-2 (COVID-19) RNA Not detected [Presence] in Respiratory specimen by GREGORIO with probe detection (test code = 63990-4) Whether patient is employed in a Unknown healthcare setting (test code = 71461-8) Whether the patient has symptoms Unknown related to condition of interest (test code = 54908-0) Whether the patient was Unknown hospitalized for condition of interest (test code = 77028-9) Whether the patient was admitted Unknown to intensive care unit (ICU) for condition of interest (test code = 64695-5) Whether patient resides in a Unknown congregate care setting (test code = 96442-8) status (test code = Unknown 99495-6) Date and time of symptom onset Unknown (test code = 72652-0) [facility] Preliminary Interpretation - Not an [id number] 02:34:56 Test Item Value Reference Range Interpretation Comments JACQUELYN (test code = JACQUELYN) Arturo Farnsworth MD 06/13/2021 9:00 [facility] Preliminary Interpretation - Not an OrderPerformed by: Arturo Farnsworth MDAuthorized by: Arturo Farnsworth MD ECG reviewed by ED Physician in the absence of a business analysis specialist: yes Interpretation: Interpretation: abnormal Rate: ECG rate: 65 ECG rate assessment: normal Rhythm: Rhythm: sinus rhythm and A-V block Ectopy: Ectopy: none QRS: QRS axis: Normal QRS intervals: NormalConduction: Conduction: abnormal 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 ST segments: ST segments: Non-specific Lab Interpretation Abnormal (test code = 50021-3) [facility] ED Preliminary Interpretation - Not an [id number] 02:34:56 Test Item Value Reference Range Interpretation Comments JACQUELYN (test code = JACQUELYN) Arturo Farnsworth MD 06/13/2021 9:00 [facility] Preliminary Interpretation - Not an OrderPerformed by: Arturo Farnsworth MDAuthorized by: Arturo Farnsworth MD ECG reviewed by ED Physician in the absence of a business analysis specialist: yes Interpretation: Interpretation: abnormal Rate: ECG rate: 65 ECG rate assessment: normal Rhythm: Rhythm: sinus rhythm and A-V block Ectopy: Ectopy: none QRS: QRS axis: Normal QRS intervals: NormalConduction: Conduction: abnormal 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 ST segments: ST segments: Non-specific Lab Interpretation Abnormal (test code = 05135-0) [facility] ED Preliminary Interpretation - Not an [id number] 02:34:56 Test Item Value Reference Range Interpretation Comments JACQUELYN (test code = JACQUELYN) Arturo Farnsworth MD 06/13/2021 9:00 [facility] Preliminary Interpretation - Not an OrderPerformed by: Arturo Farnsworth, MDAuthorized by: Arturo Farnsworth MD ECG reviewed by ED Physician in the absence of a business analysis specialist: yes Interpretation: Interpretation: abnormal Rate: ECG rate: 65 ECG rate assessment: normal Rhythm: Rhythm: sinus rhythm and A-V block Ectopy: Ectopy: none QRS: QRS axis: Normal QRS intervals: NormalConduction: Conduction: abnormal 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 ST segments: ST segments: Non-specific Lab Interpretation Abnormal (test code = 49362-0) [facility] ED Preliminary Interpretation - Not an [id number] 02:34:56 Test Item Value Reference Range Interpretation Comments JACQUELYN (test code = JACQUELYN) Arturo Farnsworth MD 06/13/2021 9:00 [facility] Preliminary Interpretation - Not an OrderPerformed by: Arturo Farnsworth, MDAuthorized by: Arturo Farnsworth MD ECG reviewed by ED Physician in the absence of a business analysis specialist: yes Interpretation: Interpretation: abnormal Rate: ECG rate: 65 ECG rate assessment: normal Rhythm: Rhythm: sinus rhythm and A-V block Ectopy: Ectopy: none QRS: QRS axis: Normal QRS intervals: NormalConduction: Conduction: abnormal 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 ST segments: ST segments: Non-specific Lab Interpretation Abnormal (test code = 43336-1) [facility] ED Preliminary Interpretation - Not an [id number] 02:34:56 Test Item Value Reference Range Interpretation Comments JACQUELYN (test code = JACQUELYN) Arturo Farnsworth MD 06/13/2021 9:00 [facility] Preliminary Interpretation - Not an OrderPerformed by: Arturo Farnsworth MDAuthorized by: Arturo Farnsworth MD ECG reviewed by ED Physician in the absence of a business analysis specialist: yes Interpretation: Interpretation: abnormal Rate: ECG rate: 65 ECG rate assessment: normal Rhythm: Rhythm: sinus rhythm and A-V block Ectopy: Ectopy: none QRS: QRS axis: Normal QRS intervals: NormalConduction: Conduction: abnormal 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 ST segments: ST segments: Non-specific Lab Interpretation Abnormal (test code = 13304-1) [facility] ED Preliminary Interpretation - Not an [id number] 02:34:56 Test Item Value Reference Range Interpretation Comments JACQUELYN (test code = JACQUELYN) rAturo Farnsworth MD 06/13/2021 9:00 [facility] Preliminary Interpretation - Not an OrderPerformed by: Arturo Farnsworth MDAuthorized by: Arturo Farnsworth MD ECG reviewed by ED Physician in the absence of a business analysis specialist: yes Interpretation: Interpretation: abnormal Rate: ECG rate: 65 ECG rate assessment: normal Rhythm: Rhythm: sinus rhythm and A-V block Ectopy: Ectopy: none QRS: QRS axis: Normal QRS intervals: NormalConduction: Conduction: abnormal 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 ST segments: ST segments: Non-specific Lab Interpretation Abnormal (test code = 67536-6) [facility] CHEST 1 [id number] 14:08:00 [facility] : 1945 Sex: M FAX: Sekou Amezcua [phone] [place]: St: ADM Name: DARIEN HUYNH [facility] : 1945 Age/S: 74/M [address] [place] [address] Blvd Unit #: [id number] Loc: [address] [address] Phys: Sekou Curtis MD Acct: [id number] Dis Date: Status: ADM IN PHONE #: [phone] Exam Date: 05/31/20201405 FAX #: [phone]: HD protocol, need to make sure no TB EXAMS: CPT CODE: [id number] XR CHEST 1 V 92348 EXAM: Single view AP chest. EXAM DATE: [...] By: Enedelia Orig Print D/T: S: 05/31/2020 (6949) PAGE 1 Signed ReportBASIC METABOLIC [id number] 05:15:00 Test Item Value Reference Range Interpretation [...] code = 8.5 mg/dL 8.0-10.5 N CA) [id number] 05:15:00 Test Item Value Reference Range Interpretation Comments ALBUMIN (test code = ALB) 3.10 g/dL 3.4-5.0 L [id number] 05:15:00 Test Item Value Reference Range Interpretation Comments PREALBUMIN (test code = PREALB) 27.0 mg/dL 16.0-40.0 N [id number] 23:17:00 Test Item Value Reference Range Interpretation Comments GLUBED (test code = 95 MG/DL 70-110 N Performe d by certified 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 2 mg/dL BASIC METABOLIC [id number] 07:53:00 Test Item Value Reference Range Interpretation [...] 8.2 mg/dL 8.0-10.5 N CA) BASIC METABOLIC [id number] 04:28:00 Test Item Value Reference Range Interpretation [...] 9.3 mg/dL 8.0-10.5 N CA) CBC W/AUTO [id number] 08:31:00 Test Item Value Reference Range Interpretation [...] (test code NO = MDIFF) BASIC METABOLIC [id number] 07:59:00 Test Item Value Reference Range Interpretation [...] CA) - USG NDL PLACEMENT (Bxg/Asp)2020-05-24 15:12:00 [facility] : 1945 Sex: M Name: DARIEN HUYNH [facility] : 1945 Age/S: 74 / M [address] [place] [address] Blvd Unit #: [id number] Loc: [place] [address] Phys: Jonathan Sheikh [employer] Acct: [id number] Dis Date: Status: ADM IN PHONE #: [phone] Exam Date: 05/24/2020 1434 FAX #: [phone] Reason: right aka fluid collection EXAMS: CPT CODE: [id number] USG NDL PLACEMENT (Bxg/Asp) 43595 PROCEDURE: Ultrasound-guided right knee stump fluid collection. [...] Signed Report- CT LOWER EXTRM W/O C [id number] 18:02:00 [facility] AMINA DARIEN : 1945 Sex: M Name: DARIEN HUYNH [facility] Cindy Smith : 1945 Age/S: 74 / M [address] [place] [address] Unit #: [id number] Loc: [place] [address] Phys: Jonathan Sheikh [employer] Acct: [id number] Dis Date: Status: ADM IN PHONE #: [phone] Exam Date: 05/23/2020 1728 FAX #: [phone] Reason: right bka, r/o fluid collection EXAMS: CPT CODE: [id number] CT LOWER EXTRM W/[place] [address] [place] right femur without contrast. INDICATION: Rig [...] iterative reconstruction techniques. DLP: 566 mGy-cm FINDINGS: Woykq-wol-kdoy amputation has been performed. A permeative pattern [...] Correlate with MRI as clinically indicated. SL: CLEMENTINE t 1802 Reported and signed by: Dominic Mena M.D. CC: Sekou Curtis; Jonathan Sheikh NP Technologist:David Aguirre, RT(R)(CT) CTDI: DLP: Trnscb Date/Time: 05/23/2020 (1801) [email or web address] Orig Print D/T: S: 05/23/2020 (1805) PAGE 1 Signed ReportBASIC METABOLIC [id number] 13:38:00 Test Item Value Reference Range Interpretation [...] code = 9.6 mg/dL 8.0-10.5 N CA) [id number] 13:38:00 Test Item Value Reference Range Interpretation Comments PHOSPHOROUS (test code = PHOS) 3.9 MG/DL 2.5-4.9 N [id number] 13:36:00 Test Item Value Reference Range Interpretation Comments ALBUMIN (test code = ALB) 3.20 g/dL 3.4-5.0 L [id number] 13:36:00 Test Item Value Reference Range Interpretation Comments PREALBUMIN (test code = PREALB) 14.3 mg/dL 16.0-40.0 L CBC W/AUTO [id number] 13:15:00 Test Item Value Reference Range Interpretation [...] (test code NO = MDIFF) SED RATE [id number] 08:19:00 Test Item Value Reference Range Interpretation Comments SED RATE WESTERGREN (test code = 114 mm/hr 0-15 H SEDW) [id number] 08:09:00 Test Item Value Reference Range Interpretation Comments PREALBUMIN (test code = PREALB) 13.1 mg/dL 16.0-40.0 L C REACTIVE [id number] 08:08:00 Test Item Value Reference Range Interpretation Comments C REACTIVE PROTEIN (test code = 192.0 mg/L <10.0 H CRP) CBC W/AUTO [id number] 07:57:00 Test Item Value Reference Range Interpretation [...] MDIFF) - XR HIP W/PEL UNI 2+V [id number] 18:35:00 [facility] : 1945 Sex: M FAX: Sekou Amezcua [phone] [place]: St: ADM FAX: Dusty Smiley [phone] Name: DARIEN HUYNH [facility] [place] : 1945 Age/S: 74/M [address] [place] [address] Unit #: [id number] Loc: G.508 [place] [address] Phys: Dusty Smiley [employer] Acct: [id number] Dis Date: Status: ADM IN PHONE #: [phone] Exam Date: 05/21/20201734 FAX #: [phone] Reason: left hip pain EXAMS: CPT CODE: [id number] XR HIP W/PEL UNI 2+[place] [address] 2+ RADIOGRAPHIC VIEWS LEFT HIP INDICATION: left [...] 05/21/2020 (1837) PAGE 1 Signed ReportCBC W/AUTO [id number] 07:47:00 Test Item Value Reference Range Interpretation [...] (test code NO = MDIFF) BASIC METABOLIC [id number] 07:40:00 Test Item Value Reference Range Interpretation [...] 9.1 mg/dL 8.0-10.5 N CA) COMPREHENSIVE METABOLIC [id number] 06:03:00 Test Item Value Reference Range Interpretation [...] TOTAL (test code = ALKP) CBC W/AUTO [id number] 05:49:00 Test Item Value Reference Range Interpretation [...] (test code NO = MDIFF) BASIC METABOLIC [id number] 08:43:00 Test Item Value Reference Range Interpretation [...] code = 9.0 mg/dL 8.0-10.5 N CA) [id number] 08:43:00 Test Item Value Reference Range Interpretation Comments PHOSPHOROUS (test code = PHOS) 4.7 MG/DL 2.5-4.9 N CBC W/AUTO [id number] 08:29:00 Test Item Value Reference Range Interpretation [...] (test code NO = MDIFF) BASIC METABOLIC [id number] 07:42:00 Test Item Value Reference Range Interpretation [...] 9.5 mg/dL 8.0-10.5 N CA) BASIC METABOLIC [id number] 09:55:00 Test Item Value Reference Range Interpretation [...] code = 8.7 mg/dL 8.0-10.5 N CA) [id number] 09:55:00 Test Item Value Reference Range Interpretation Comments PHOSPHOROUS (test code = PHOS) 5.2 MG/DL 2.5-4.9 H [id number] 09:55:00 Test Item Value Reference Range Interpretation Comments MAGNESIUM (test code = MAG) 1.89 mg/dL 1.80-2.40 N CBC W/AUTO [id number] 09:28:00 Test Item Value Reference Range Interpretation [...] REQUIRED (test code = MDIFF) CBC W/AUTO [id number] 09:28:00 Test Item Value Reference Range Interpretation [...] (test code NO = MDIFF) ACUTE HEPATITIS [id number] 13:08:00 Test Item Value Reference Range Interpretation [...] COMMENTS: At start of hemodialysisAB HEPATITIS B [id number] 13:08:00 Test Item Value Reference Range Interpretation Comments AB HEPATITIS B 22.1 mIU/mL See_Comment Status of Im munity SURFACE (test code = Anti-HB s Level HBSAB) --- I nconsis tent with Immun ity 0.0 - 9.9Consistent with Immunity >9.9Pe rformed At: [facility] [id number] [place], [place] [id number] Salomón Peralta MD Ph:[phone] [Automated mess age] The system [employer] generated this result transmitted ref erence range: Immunity >9.9. The reference r za was not used to interpret this result as normal/abnor mal. COMMENTS: At start of hemodialysisACUTE HEPATITIS [id number] 10:00:00 Test Item Value Reference Range Interpretation [...] COMMENTS: At start of hemodialysisAB HEPATITIS B [id number] 10:00:00 Test Item Value Reference Range Interpretation Comments AB HEPATITIS B SURFACE (test code = HBSAB) COMMENTS: At start of hemodialysisBASIC METABOLIC [id number] 09:23:00 Test Item Value Reference Range Interpretation [...] 8.5 mg/dL 8.0-10.5 N CA) CBC W/AUTO [id number] 09:16:00 Test Item Value Reference Range Interpretation [...] (test code NO = MDIFF) RENAL FUNCTION [id number] 06:58:00 Test Item Value Reference Range Interpretation [...] code = 3.0 MG/DL 2.5-4.9 N PHOS) [id number] 06:58:00 Test Item Value Reference Range Interpretation Comments MAGNESIUM (test code = MAG) 1.81 mg/dL 1.80-2.40 N CBC W/AUTO [id number] 06:49:00 Test Item Value Reference Range Interpretation [...] (test code NO = MDIFF) CBC W/AUTO [id number] 06:45:00 Test Item Value Reference Range Interpretation [...] code = MDIFF) - CT HEAD/BRAIN W/O [id number] 04:29:00 [facility] : 1945 Sex: M Name: DARIEN HUYNH [facility] : 1945 Age/S: 74 / M [address] [place] [address] Unit #: [id number] Loc:[place] [address] Phys: Fausto Espino MD Acct: [id number] Dis Date: Status: ADM IN PHONE #: [phone] Exam Date: 05/13/2020413 FAX #: [phone] Reason: TRAUMA EXAMS: CPT CODE: [id number] CT HEAD/BRAIN W/O CONT 94830 STUDY: - CT HEAD/BRAIN W/O CONT 05/13/2020 5:00 AM Ordering Physician: Fausto Espino MD Patient Name: DARIEN HUYNH MR: [id number] : 1945; Age: 74 years y/o Male [...] maximum thickness again seen extending into the le ft tentorium measuring up to 2 mm maximum [...] 1 Signed Report (CONTINUED) Name: DARIEN HUYNH [facility] Cindy Smith : 1945 Age/S: 74 / M [address] [place] [address] Unit #: [id number] Loc: [place] [address] Phys: Fausto Espino MD Acct: [id number] Dis Date: Status: ADM IN PHONE #: [phone] Exam Date: 05/13/2020413FAX #: [phone] Reason: TRAUMA EXAMS: CPT CODE: [id number] CT HEAD/BRAIN W/O CONT 67087 <Continued> MASTOIDS: Clear. ORBITS: The globes are [...] PAGE 2 Signed ReportCOVID 19 Asymptomatic IH [id number] 03:09:00 Test Item Value Reference Range Interpretation [...] high or waivedcomplexit y tests. BASIC METABOLIC [id number] 02:14:00 Test Item Value Reference Range Interpretation [...] 8.5 mg/dL 8.0-10.5 N CA) HEPATIC FUNCTION [id number] 02:14:00 Test Item Value Reference Range Interpretation [...] 112 IUnit/L 20-125 N code = ALKP) [id number] 02:14:00 Test Item Value Reference Range Interpretation Comments LIPASE (test code = LIP) 185 U/L 13-57 H [id number] 02:14:00 Test Item Value Reference Range Interpretation [...] or Legal orEmployment ev aluation purposes. PROTHROMBIN [id number] 02:11:00 Test Item Value Reference Range Interpretation Comments PROTHROMBIN TIME 12.8 SECONDS 9.3-12.9 N PATIENT (test code = PTP) INTERNATIONAL NORMAL 1.2 0.8-1.2 N TARGET INR BY RATIO (test code = INDICATIO N Indication INR) INR1. Prophylax is of venous thrombos is 2.0 - 3.0 (orthope dic surgery), Proph ylaxis of venous throm bosis [...] (to prevent recurrent infar ct). THROMBOPLASTIN TIME [id number] 02:11:00 Test Item Value Reference Range Interpretation Comments THROMBOPLASTIN TIME 31.8 Seconds 25.0-39.5 N Therape utic Range: PARTIAL (test code = 50.4 - 88.3 Seconds PTT) Effective 05/27/2018 PROTHROMBIN [id number] 02:10:00 Test Item Value Reference Range Interpretation [...] (to prevent recurrent infar ct). THROMBOPLASTIN TIME [id number] 02:10:00 Test Item Value Reference Range Interpretation Comments THROMBOPLASTIN TIME PARTIAL (test Seconds 25.0-39.5 code = PTT) CBC W/AUTO [id number] 01:59:00 Test Item Value Reference Range Interpretation [...] NO = MDIFF) - CT HEAD/BRAIN W/O [id number] 23:15:[address] [facility] [place] [place] : 1945 Sex: M Name: DARIEN HUYNH [facility] : 1945 Age/S: 74 / M [address] [address] [facility] Unit #: [id number] Loc: [place] [address] Phys: Undefined Provider Acct: [id number] Dis Date: Status: REG REF PHONE #: [phone] Exam Date: 05/12/2020 7168 FAX #: Reason: s/p fall Report Has Been Amended EXAMS: CPT: [id number] CT HEAD/BRAIN W/O CONT 58449 Addendum - 05/12/2020 SIGNED 05/12/[address]: [id number]/CTHDBRWO Findings were notified to house visitor Huyen at 11:15 PM on 05/12/2020. at 2315 Reported and signed by: Kaela Lindsey M.D. Transcribed: 05/12/2020 (5) CarlitoTH15 Report EXAM: - CT HEAD/BRAIN W/O CONT LOCATION: H61 CLINICAL HISTORY/INDICATION: Fall with pain TECHNIQUE: Helical CT acquisition of the head was obtained without IV contrast. Images were reconstructed in the axial, sagittal and coronal planes. This examination was performed according to our departmental dose optimization program, which includes automated exposure contro l, adjustment of the mA and/or kV according [...] the mid to posterior aspect of the in terhemispheric fissure. The hematoma measures up to 7 mm in thickness. There is mild local mass effect on the medial left PAGE 1 Signed Report (CONTINUED) Name: DARIEN HUYNH : 1945 Age/S: 74 / M [address] [address] [facility] Unit #: [id number] Loc: [place] [address] Phys: Undefined ProviderAcct: [id number] Dis Date: Status: REG REF PHONE #: [phone] Exam Date: 05/12/2020 FAX #:Reason: s/p fall Report Has Been Amended EXAMS: CPT: [id number] CT HEAD/BRAIN W/O CONT 50155 (Continued) frontoparietal lobe without midline shift or [...] PAGE 2 Signed Report- CT HEAD/BRAIN W/O [id number] 23:15:00[facility] [place] : 1945 Sex: M Name: DARIEN HUYNH [facility] : 1945 Age/S: 74 / M [address] [address] [place] Unit #: [id number] Loc: [place] [address] Phys: Undefined Provider Acct: [id number] Dis Date: Status: REG REF PHONE #: [phone] Exam Date: 05/12/20202213 FAX #: Reason: s/p fall Report Has Been Amended EXAMS: CPT: [id number] CT HEAD/BRAIN W/O CONT 19741 Addendum - 05/12/2020 SIGNED 05/12/[address]: [id number]/CTHDBRWO Findings were notified to house visitor Huyen at 11:15 PM on 05/12/2020. at 2315 Reported and signed by: Kaela Lindsey M.D. Transcribed: 05/12/2020 (6819) [email or web address] Report EXAM: - CT HEAD/BRAIN W/O CONT LOCATION: H61 CLINICAL HISTORY/INDICATION: Fall with pain TECHNIQUE: Helical CT acquisition of the head was obtained without IV contrast. Images were reconstructed in the axial, sagittal and coronal planes. This examination was performed according to our departmental dose optimization program, which includes automated exposure co ntrol, adjustment of the mA and/or kV according [...] HUYNH : 1945 Age/S: 74 / M [address] [address] [place] Unit #: [id number] Loc: [place] [address] Phys: Undefined Provider Acct: [id number] Dis Date: Status: REG REF PHONE #: [phone] Exam Date: 05/12/2020 4791 FAX #: Reason: s/p fall Report Has Been Amended EXAMS: CPT: [id number] CT HEAD/BRAIN W/O CONT 28007 <Continued> frontoparietal lobe without midline shift or transtentorial herniation. SCALP: No abnormalities. BONES: No skull fractures or aggressive calvarial lesions. PARTIALLY IMAGED FACE /PARANASAL SINUSES: Paranasal sinuses are clear. MASTOID AIR CELLS: No effusion. IMPRESSION: 1. Acute 7mm left parafalcine subdural hematoma without midline shift or transtentorial herniation. 2. Moderate chronic small vessel ischemic disease. at 225 Reported and signed by: Kaela Lindsey M.D. CC: Technologist:Liss Jordan RT(R)(CT); ... CTDI: DLP: Trnscb Date/Time: 05/12/2020 (2250) [email or web address] Orig Print D/T: S: 05/12/2020 (2254) PAGE 2Signed Report- CT HEAD/BRAIN W/O [id number] 22:51:[address] [facility] : 1945 Sex: M Name: DARIEN HUYNH [facility] : 1945 Age/S: 74 / M [address] [facility] Unit #: [id number] Loc: [place] [address] Phys: Undefined Provider Acct: [id number] Dis Date: Status: REG REF PHONE #: [phone] Exam Date: 05/12/20205 FAX #: Reason: s/p fall EXAMS: CPT: [id number] CT HEAD/BRAIN W/O CONT 01176 EXAM: - CT HEAD/BRAIN W/O CONT LOCATION: [...] HUYNH : 1945 Age/S: 74 / M [address] [address] [place] Unit #: [id number] Loc: [place] [address] Phys: Undefined Provider Acct: [id number] Dis Date: Status: REG REF PHONE #: [phone] Exam Date: 05/12/20202213 FAX #: Reason: s/p fall EXAMS: CPT: [id number] CT HEAD/BRAIN W/O CONT 78531 (Continued) at 2250 Reported and signed by: Kaela Lindsey M.D. CC: Technologist:RT Sharon(R)(CT); ... CTDI: DLP: Trnscb Date/Time: 05/12/2020 (2250) CarlitoTH15 Orig Print D/T: S:05/12/2020 (2254) PAGE 2 Signed Report- CT C-SPINE W/O CONT 2020-05-12 22:40:[address] [facility] [place] : 1945 Sex: M Name: DARIEN HUYNH [facility] : 1945 Age/S: 74 / M [address] [address] [place] Unit #: [id number] Loc: [place] [address] Phys: Undefined Provider Acct: [id number] Dis Date: Status: REG REF PHONE #: [phone] Exam Date: 05/12/20203 FAX #: Reason: s/p fall EXAMS: CPT: [id number] CT C-SPINE W/O CONT 13917JJGK: - CT C- SPINE W/O CONT LOCATION: [facility] CLINICAL HISTORY/INDICATION: Fall with pain. COMPARISON: None [...] HUYNH : 1945 Age/S: 74 / M [address] [address] [place] Unit #: [id number] Loc: [place] [address] Phys: Undefined Provider Acct: [id number] Dis Date: Status: REG REF PHONE #: [phone] Exam Date: 05/12/20202 FAX #: Reason: s/p fall EXAMS: CPT: [id number] CT C-SPINE W/O CONT 95319 (Continued) spinal canal stenosis. C3- C4: Diffuse disc osteophyte complex and bilateral uncovertebral arthrosis res ults in severe bilateral neural foraminal stenosis but [...] bilateral neural foraminal stenosis, but no spinal c anal stenosis. C6-C7: Left central disc osteophyte complex results in mild central spinal canal stenosis. Bilateral uncovertebral arthrosis results in severe bilateral neural foraminal stenosis. C7-T1:Bilateral uncovertebral arthrosis and severe right facet arthrosis contributes to severe bilateral ne ural foraminal stenosis but no spinal canal stenosis. IMPRESSION: 1. No acute fracture or subluxation. 2. Severe multilevel facet arthropathy, disc degeneration and uncovertebral arthrosis results in severe multilevel foraminal stenosis, but no high-grade spinal canal stenosis. at 2240 Reported and signed by: Kaela Lindsey M.D. CC: Technologist:RT Sharon(R)(CT); ... CTDI: DLP: Trnscb Date/Time: 05/12/2020 (2239) [email or web address] Orig Print D/T: S: 05/12/2020 (1706) PAGE 2 Signed Report- CT C-SPINE W/O [id number] 22:40:[address] [facility] [place] : 1945 Sex: M Name: DARIEN HUYNH [facility] : 1945 Age/S: 74 / M [address] [address] [place] Unit #: [id number] Loc: [place] [address] Phys: Undefined Provider Acct: [id number] Dis Date: Status: REG REF PHONE #: [phone] Exam Date: 05/12/20202213 FAX #: Reason: s/p fall EXAMS: CPT: [id number] CT C-SPINE W/O CONT 24961 EXAM: - CT C-SPINE W/O CONT LOCATION: 1 CLINICAL HISTORY/INDICATION: [...] 1 Signed Report (CONTINUED) Name[facility] 1945 Age/S: 74 / M [address] [address] [place] Unit #: [id number] Loc: [place] [address] Phys: Undefined Provider Acct: [id number] Dis Date: Status: REG REF PHONE #: [phone] Exam Date: 05/12/20202213 FAX #: Reason: s/p fall EXAMS: CPT: [id number] CT C-SPINE W/O CONT 05676 <Continued> spinal canal stenosis. C3-C4: Diffuse disc osteophyte complex and bilateral uncovertebral art hrosis results in severe bilateral neural foraminal stenosis but no spinal canal stenosis. Moderate bilateral facet arthrosis. C4-C5: Grade 1 anterolisthesis. Partial ankylosis of the vertebral bodies.Severe left and moderate right facet arthrosis/hypertrophy. Diffuse [...] canal stenosis. IMPRESSION: 1. No acute fracture orsubluxation. 2. Severe multilevel facet arthropathy, disc degeneration and uncovertebral arthrosis results in severe multilevel foraminal stenosis, but no high-grade spinal canal stenosis. at 2240 Reported and signed by: Kaela Lindsey M.D. CC: Technologist:Liss Jordan RT(R)(CT); ... CTDI: DLP: Trnscb Date/Time: 05/12/2020 (2239) [email or web address].TH15 Orig Print D/T: S: 05/12/2020 (9601) PAGE 2 Signed ReportAFB lggalkg9956-28-91 05:13:59 Test Item Value Reference Range Interpretation Comments AFB culture isolate No growth after 6 (test code = 543-9) weeks of incubation. [facility]2434[facility] 06:15:49 Test Item Value Reference Range Interpretation Comments Fungus culture isolate No growth after 4 (test code = 1441) weeks of incubation. [facility] [place] < 1 Mnwa9866-24-12 21:39:42EXAMINATION: OR FL < 1 HOUR C-arm [...] be issued by the physician performing theprocedure.1D2IMG_LT03[facility] jihcarz0333-63-81 14:47:42 Test Item Value Reference Range Interpretation Comments Anaerobic culture No anaerobic organisms isolate (test code = isolated. 552) [facility] [id number] 07:48:01 Test Item Value Reference Range Interpretation Comments AFB stain (test code = No acid fast bacilli 676-7) (AFB) seen. [facility] sqmvicb4591-25-93 07:48:01 Test Item Value Reference Range Interpretation Comments Aerobic culture isolate No growth after 3 (test code = 498) days. [facility] rleps9786-17-34 07:48:01 Test Item Value Reference Range Interpretation Comments Fungus smear (test code = No fungi observed. 1443) [facility] HospitalG[facility] mmszn4403-02-60 07:48:01Gram stain isolateFew WBC'sNo organisms seen Comment: Specimen InformationSpecimen Source: TissueSpecimen Site: Femur: Right femoral canal tissue [facility] inzwgnm9250-70-57 21:19:54 Test Item Value Reference Range Interpretation Comments Case number (test code = [id number]) Surgical pathology See link below for report (test code = PDF Lab Report 2255) Result status (test code This is Final Report = [id number]) for [id number] [facility] carotid ajmibn7155-42-08 00:39:00 [facility] Carotid Artery Duplex Report [address] [place] [address] For quality assurance director purposes, the categorization of the degree of the stenosis of this exam is based on criteria described in the IAC carotid stenosis grading white paper( www.intersocietal.org/Vascular) and Shagufta Andrews., Marcello, CMarvaB., et al. Carotid artery stenosis: maya-scale and Doppler US diagnosis--Society of Radiologists in Ultrasound Consensus Conference. Radiology. 2003 Dec; 229(2):340-6. Pat.Name: DARIEN HUYNH Pat.ID: [id number] .Date: 03/23/2020 Refer.MD: BEAR MARIEE MD Exam Time: 11:25:00 AM Study Type:Carotid Height: 68in Weight: 186lb BSA: 1.98 m2 Age: 9 1945,74Y Sex: MALE Sonogrphr: NOEMI Chapman Pat. Stat.:Inpatient Room: [place] [address] Tape Vol: BE, CPT - 4: 02506 Echo Event ID:[id number] Order ID: [id number] Reason for Study:Cervical bruit, no prior carotid artery assessment.History of anemia, ESRD and left arm dialysis. Procedures: Colorflow, Grayscale/2D,Pulsed wave DopplerRace: C SUMMARY: ------PHYSICAL ASSESSMENT Blood Pulses Carotid Pressure Carotid Temporal [...] stenosis of the right internal carotid artery. 2.>50% stenosis of the right external carotid artery.3. Non-stenotic scattered plaque in the right c arotid artery. 4. <50% stenosis of the left internal carotid artery.5. There is intimal thickening noted throughout the common carotidartery, bilaterally. 6. The left subclavian artery is patent with disturbed Doppler signalsconsistent with a more distal Arteriovenous fistula (AVF). PHYSICIAN INTERPRETATION 1. Moderate (50-69%) stenosis of right internal carotid artery.2. >50% stenosis of rightexternal carotid artery.3. Non-stenotic calcific plaque in right [...] EDV 22 cm/sLeft CCA Dist CCA Dist LRB303 cm/s Left CCA Mid CCA Mid PSV [...] [facility] Carotid Artery Duplex Report [address] [place] [address] For quality assurance director purposes, the categorization of the degree of the stenosis of this exam is based on criteria described in the IAC carotid stenosis grading white paper( www.intersocietal.org/Vascular) and Shagufta Andrews., Oz Armendariz, et al. Carotid artery stenosis: maya-scale and Doppler US diagnosis--Society of Radiologists in Ultrasound Consensus Conference. Radiology. 2003 Nov; 229(2):340-6. Pat.Name: DARIEN HUYNH Pat.ID: [id number] .Date: 03/23/2020 Refer.MD: BEAR MARIEE MD Exam Time: 11:25:00 AM Study Type:Carotid Height: 68in Weight: 186lb BSA: 1.98 m2 Age: 9 1945,74Y Sex: MALE Sonogrphr:NOEMI Chapman Pat. Stat.:Inpatient Room: [place] [address] Tape Vol: BE, CPT - 4: 55330 Echo Event ID:[id number] Order ID: [id number] Reason for Study:Cervical bruit, no prior carotid [...] extending into the internal and external carotid noy abel. Thereis antegrade flow noted in the vertebral [...] left subclavian artery is patent with disturbed Dopplersignalsconsistent with a more distal Arteriovenous fistula (AVF). PHYSICIAN INTERPRETATION 1. Moderate (50- 69%) stenosis of right internal carotid artery.2. >50% stenosis of right external carotid artery.3. Non-stenotic calcific plaque in right common carotid artery.4. Mild (<50%) stenosis of left internal carotid artery. 5. Left subclavian artery with significant velocity elevation anddisturbed doppler signal consistent with distal AVF.6. Bilateral vertebral arteries with antegrade flow.------ FINDINGS: Carot id Findings: Right Left Verteb.Flw Antegrade Antegrade Subclavian [...] Prox CCA Prox EDV 26 cm/s CCA ProxEDV 25 cm/s CCA Prox PSV 92 cm/s [...] EDV 23 cm/sLeft ICA Mid ICA Mid TKM287 cm/s Left ICA Prox ICA Prox PSV 125 cm/s Left Subclavian Subclavian PSV 312 cm/s Subclavian EDV66.6 cm/sRight SCA Prox SCA Prox PSV 172 cm/s SCA Prox EDV 22 cm/sLeft SCA Prox SCA Prox PSV 312 cm/s SCA Prox EDV 66 cm/sRight ICA/CCA Ratio ICA/CCA PSV 1.67 Left ICA/CCA Ratio ICA/CCA PSV 1.14 Zustxp5603/23/2020 06:39 Ysabel Liang MD, RPVI [facility] HospitalKewpsxmxKtnbul2063-25-82 19:25:28WaTejal heck 03/22/2020 1:45 PMAirway Date/Time: 03/22/2020 1:00 PM Location: OR Performed by: ADDRESSING MACHINE OPERATOR/ AAAnesthesiologist: Tahmina Mccloud/ADDRESSING MACHINE OPERATOR/AA: Tejal SimpsonAuthorized by: Liu Mccloud Urgency: ElectiveDifficult Airway: No Preoxygenated with 100% O2: Yes C-spine Precautions Maintained Throughout: Yes Mask Ventilation: Easy maskFinal Airway Type: Endotracheal airwayFinal Endotracheal Airway: ETTCuffed: Yes Technique Used: Video laryngoscopyDevices/Methods Used in Placement: Intubating styletInsertion Site: OralLaryngoscope Blade/Videolaryngoscope Blade Size: 3ETT Size (mm): 8.0Cuff at minimumocclusion pressure: Yes Measured from: GumsETT to Gums (cm): 22Placement Verified by: CO2 detection,direct visualization and equal breath sounds Laryngoscopic view: Grade I - full view of glottisRapidSequence Induction (RSI): No Modified RSI: No Number of Attempts at Approach: 3 or more First attempt using Sheikh 2 blade by ADDRESSING MACHINE OPERATOR. Second attempt with MD with MAC 3. Grade 3b view, secondary to neck stiffness.Grade 1 view with glidescope. ETT passed atraumatically.Transthoracic Echocardiogram Complete, (w Contrast, Strain and 3D if needed)2020-03-19 20:20:00 Echocardiography Report [address] [place] [address] Pat.Name: DARIEN HUYNHNess Pat.ID: [id number] .Date: 03/19/2020 Refer.MD: CLINT KING DO Exam Time: 11:43:00 AM Study Type:Routine Echo Height: 68in Weight: 185.61lb BSA: 1.98 m2 Age: 9 1945,74Y Sex: MALE BP: 110/57 HR: 70 bpm Sonogrphr: NILSON Conde Pat. Stat.:Inpatient Room: [facility] Study Status:Final Echo Event ID:[id number] Order ID: [id number] Reason for Study:Perioperative function eval without cardiac [...] estimate PA systolic pressure. MEASUREMENTS: 2DParasternal Long [place] Ao An 2.2 cm LVPWd 1.3 cm [...] be different from the original. Echocardiography Report [address] [place] [address] Pat.Name: DARIEN HUYNH Pat.ID: [id number] .Date: 03/19/2020 Refer.MD: CLINT KING DO Exam Time: 11:43:00 AM Study Type:Routine Echo Height: 68in Weight: 185.61lb BSA: 1.98 m2 Age: 9 1945,74Y Sex: MALE BP: 110/57 HR: 70 bpm Sonogrphr: NILSON Conde Pat. Stat.:Inpatient Room: [facility] Study Status:Final Echo Event ID:[id number] Order ID: [id number] Reason forStudy:Perioperative function eval without cardiac evidenceHistory / Clinical:Hypertension, Heart DiseaseProcedures: 2D Echo, Colorflow Doppler, 3D Echo, Strain, Portable,Intravenous Optison ContrastRace: C SUMMARY: There is mild concentric LV hypertrophy. LV EF is normal. Overallwall motion is normal.Diastolic dysfunction Grade I (Mild): Impaired relaxation with normalLV filling pressures. FINDIN GS: LV: LV size is normal. There is [...] estimate PA systolic pressure. MEASUREMENTS: 2DParasternal Long [place] Ao An 2.2 cm LVPWd 1.3 cm Ao Rtd 3.4 cm Index 1.7 cm/m2 LA Ds 4.1 cm IVSd 1.3 cm RWT 0.5 LVIDd 5.1 cm Index2.6 cm/m2 LV Mass 270.1 g (122-174) LVIDs [...] M.D.[facility] Lower Extremity Wo Contrast [id number] 13:07:30EXAMINATION: MRI LOWER EXTREMITY WO CONTRAST RIGHT [...] tibia.1D2RAD_PS08[facility] THIGH WO CONTRAST DLIEJ1395-13-83 12:29:55EXAMINATION: MRI KNEE WO CONTRAST RIGHT, MRI [...] with the fluid surrounding the tibial stem. [facility]-BKTLOO9By Interface, Radiology Results 03/19/2020 6:33 AM CST [...] communicate with the fluid surrounding the tibial stem.RM-AFHIYL7Dyntnmxnu HospitalMRI Knee Right Wo Cgrttlvx1429-45-26 12:29:55EXAMINATION: MRI KNEE WO CONTRAST RIGHT, MRI [...] with the fluid surrounding the tibial stem. 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 Infection cannot be excluded. There is a joint effusionpresent. There is no acute fracture or dislocation. There are vascular calcifications. [facility]-[id number] Interface, Radiology Results 03/18/2020 5:17 PM CST [...] fracture or dislocation. 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 Infection cannot be excluded. Bones are osteopenic. No definite acute fracture is seen. [id number] Interface, Radiology Results 03/18/2020 5:09 PM CST EXAMINATION: XR TIBIA FIBULA 2 VW RIGHTCLINICAL HISTORY: L leg cellulitisCOMPARISON: NoneIMPRESSION:There is evidence of loosening of tibial component of kneeprosthesis, with large zone of lucency around the stem. Infection cannot be excluded. Bones are osteopenic. No definite acute fracture is seen.[id number] HospitalTROPONI [id number] 02:22:00 Test Item Value Reference Range Interpretation Comments TROPONIN I (test <0.012 See_Comment [Automated code = 7045584146) message] The system which generated this result [...] ? Lab Interpretation Normal (test code = 80581-7) [facility]MINANess [id number] 02:20:00 Test Item Value Reference Range Interpretation Comments TROPONIN I (test <0.012 See_Comment [Automated code = 4612275804) message] The system which generated this result [...] ? Lab Interpretation Normal (test code = 44145-8) [facility]URINALYSIS2020-10-01 00:21:00 Test Item Value Reference Range Interpretation Comments APPEARANCE (test code = Clear Clear 6700257899) COLOR (test code = Yellow Yellow 5387723986) PH (test code = 4.8-8.0 8015998042) SP GRAVITY (test code = 1.003-1.030 3713483830) GLU U QUAL (test code = Normal Normal 0913012679) BLOOD (test code = Negative Negative 6468663144) KETONES (test code = Negative Negative 3547677579) PROTEIN (test code = 100 mg/dL Negative A 2887-8) UROBILIN (test code = Normal Normal 5576354808) BILIRUBIN (test code = Negative Negative 7819886066) NITRITE (test code = Negative Negative 7339913944) LEUK AJ (test code = Negative Negative 2664035621) RBC/HPF (test code = See_Comment H [Autom ated message] 0260590514) The system [employer] generated this result transmit amado reference range : 0 - 3 HPF. The refe rence range was not u sed to interpret th is result as normal/abnormal . WBC/HPF (test code = <1 See_Comment [Autom ated message] 0507819152) The system [employer] generated this result transmit amado reference range : 0 - 5 HPF. The refe rence range was not u sed to interpret th is result as normal/abnormal . BACTERIA (test code = Few Negative A 4128307863) MUCOUS (test code = Slight Negative LPF A 2511148375) SQ EPITH (test code = <1 HPF 0563464147) Lab Interpretation (test Abnormal code = 07195-5) [facility]2020-10-01 00:21:00 Test Item Value Reference Range Interpretation Comments APPEARANCE (test code = Clear Clear 3773551191) COLOR (test code = Yellow Yellow 1016470181) PH (test code = 4.8-8.0 8962511609) SP GRAVITY (test code = 1.003-1.030 0082513821) GLU U QUAL (test code = Normal Normal 0651136242) BLOOD (test code = Negative Negative 9140786463) KETONES (test code = Negative Negative 1686197776) PROTEIN (test code = 100 mg/dL Negative A 2887-8) UROBILIN (test code = Normal Normal 0740725798) BILIRUBIN (test code = Negative Negative 1712108255) NITRITE (test code = Negative Negative 1718743233) LEUK AJ (test code = Negative Negative 3543227541) RBC/HPF (test code = See_Comment H [Autom ated message] 7811676925) The system [employer] generated this result transmit amado reference range : 0 - 3 HPF. The refe rence range was not u sed to interpret th is result as normal/abnormal . WBC/HPF (test code = <1 See_Comment [Autom ated message] 2243955967) The system [employer] generated this result transmit amado reference range : 0 - 5 HPF. The refe rence range was not u sed to interpret th is result as normal/abnormal . BACTERIA (test code = Few Negative A 8275055012) MUCOUS (test code = Slight Negative LPF A 6448077419) SQ EPITH (test code = <1 HPF 1048347507) Lab Interpretation (test Abnormal code = 65188-1) [facility] CHEST 1 [id number] 23:24:26 No acute cardiopulmonary abnormality. Preliminary Report [...] reviewed this study and agree with theabove report.[facility] CHEST 1 [id number] 23:24:26 No acute cardiopulmonary abnormality. Preliminary Report [...] reviewed this study and agree with theabove report.[facility] COMP. METABOLIC PANEL (83750)2019-11-11 23:16:00 Test Item Value Reference Range Interpretation Comments NA (test code = 137 mmol/L 135-145 1476044862) K (test code = 4.0 mmol/L 3.5-5 8583846814) CL (test code = 94 mmol/L 98-108 L 8472005868) CO2 TOTAL (test code = 29 mmol/L 23-31 8076258458) AGAP (test code = 2-16 2344039516) BUN (test code = 63 mg/dL 7-23 H 1262612342) GLUCOSE (test code = 142 mg/dL 70-110 H 6337898747) CREATININE (test code = 5.82 mg/dL 0.6-1.25 H 5738219233) TOTAL BILI (test code = 0.4 mg/dL 0.1-1.7 6342943968) CALCIUM (test code = 9.8 mg/dL 8.6-10.6 9028096712) T PROTEIN (test code = 7.5 g/dL 6.3-8.2 3692824647) ALBUMIN (test code = 4.2 g/dL 3.5-5 8040281295) ALK PHOS (test code = 100 U/L 34-122 4125682459) ALTv (test code = 14 U/L 5-50 1742-6) AST(SGOT) (test code = 27 U/L 13-40 9188117392) eGFR Calculation mL/min/1.73m2 (Non-) (test code = 8161596503) eGFR Calculation mL/min/1.73m2 () (test code = 6893075657) JACQUELYN (test code = JACQUELYN) Association of [...] tests). Lab Interpretation Abnormal (test code = 01399-8) [facility] Test Item Value Reference Range Interpretation Comments MAGNESIUM (test code = 8215615397) 2.5 mg/dL 1.7-2.4 H Lab Interpretation (test code = Abnormal 63496-1) [facility] (17120)2019-11-11 23:16:00 Test Item Value Reference Range Interpretation Comments NA (test code = 137 mmol/L 135-145 5346489994) K (test code = 4.0 mmol/L 3.5-5 0993288277) CL (test code = 94 mmol/L 98-108 L 0909778823) CO2 TOTAL (test code = 29 mmol/L 23-31 3474221533) AGAP (test code = 2-16 8181057061) BUN (test code = 63 mg/dL 7-23 H 8387149368) GLUCOSE (test code = 142 mg/dL 70-110 H 2345993216) CREATININE (test code = 5.82 mg/dL 0.6-1.25 H 7841850581) TOTAL BILI (test code = 0.4 mg/dL 0.1-1.3 9467951616) CALCIUM (test code = 9.8 mg/dL 8.6-10.6 3481467162) T PROTEIN (test code = 7.5 g/dL 6.3-8.2 7437300069) ALBUMIN (test code = 4.2 g/dL 3.5-5 2788055418) ALK PHOS (test code = 100 U/L 34-122 6401886385) ALTv (test code = 14 U/L 5-50 1742-6) AST(SGOT) (test code = 27 U/L 13-40 6901853155) eGFR Calculation mL/min/1.73m2 (Non-) (test code = 6561399773) eGFR Calculation mL/min/1.73m2 () (test code = 3636531382) JACQUELYN (test code = JACQUELYN) Association of [...] tests). Lab Interpretation Abnormal (test code = 81876-2) [facility] 23[facility]16:00 Test Item Value Reference Range Interpretation Comments MAGNESIUM (test code = 0766736544) 2.5 mg/dL 1.7-2.4 H Lab Interpretation (test code = Abnormal 13633-1) [facility] WITH DENT8004-06-04 22:53:00 Test Item Value Reference Range Interpretation Comments WBC (test code = See_Comment [Automated 6890-2) message] The sy stem which generated this result transmitted reference range : 4.20 - 10.70 10*3/?L. The reference range was not used to interpret this result as normal/abnormal . RBC (test code = See_Comment L [Automated 184-8) message] The sy stem which generated this [...] RDW-SD (test code = 46.1 fL 38.5-51.6 95224-5) RDW-CV (test code = 13.9 % 12.1-15.4 788-0) PLT (test code = See_Comment [Automated 777-3) message] The sy stem which generated this result transmitted reference range : 150 - 328 10*3/ ?L. The reference r za was not used to interpret this result as normal/abnormal . MPV (test code = 8.7 fL 9.8-13 L 60855-2) NRBC/100 WBC (test See_Comment [Automat ed code = 0388380196) message] The system which generated this result transmitted reference range : 0.0 - 10.0 /100 WBCs. The refer ence range was not u sed to interpret th is result as normal/abnormal . NRBC x10^3 (test code <0.01 See_Comment [Auto mated = 6957684088) message] The s ystem which generated this result transmitted reference range : 10*3/?L. The reference range was not used to interpret this result as normal/abnormal . GRAN MAT (NEUT) % 79.0 % (test code = 770-8) IMM GRAN % (test code 0.50 % = 1370141128) LYMPH % (test code = 7.3 % 736-9) MONO % (test code = 9.1 % 5905-5) EOS % (test code = 3.8 % 713-8) BASO % (test code = 0.3 % 706-2) GRAN MAT x10^3(ANC) 6.93 10*3/uL 1.99-6.95 (test code = 4703629598) IMM GRAN x10^3 (test 0.04 10*3/uL 0-0.06 code = 3612013531) LYMPH x10^3 (test code 0.64 10*3/uL 1.09-3.23 L = 731-0) MONO x10^3 (test code 0.80 10*3/uL 0.36-1.02 = 742-7) EOS x10^3 (test code = 0.33 10*3/uL 0.06-0.53 711-2) BASO x10^3 (test code 0.03 10*3/uL 0.01-0.09 = 704-7) Lab Interpretation Abnormal (test code = 70057-3) [facility] WITH OUWW2313-26-10 22:53:00 Test Item Value Reference Range Interpretation [...] RDW-SD (test code = 46.1 fL 38.5-51.6 57855-4) RDW-CV (test code = 13.9 % 12.1-15.4 788-0) PLT (test code = See_Comment [Automated 777-3) message] The sy stem which generated this result transmitted reference range : 150 - 328 10*3/ ?L. The reference r za was not used to interpret this result as normal/abnormal . MPV (test code = 8.7 fL 9.8-13 L 80440-4) NRBC/100 WBC (test See_Comment [Automat ed code = 4657320271) message] The system which generated this result transmitted reference range : 0.0 - 10.0 /100 WBCs. The refer ence range was not u sed to interpret th is result as normal/abnormal . NRBC x10^3 (test code <0.01 See_Comment [Auto mated = 5266032659) message] The s ystem which generated this result transmitted reference range : 10*3/?L. The reference range was not used to interpret this result as normal/abnormal . GRAN MAT (NEUT) % 79.0 % (test code = 770-8) IMM GRAN % (test code 0.50 % = 8896372704) LYMPH % (test code = 7.3 % 736-9) MONO % (test code = 9.1 % 5905-5) EOS % (test code = 3.8 % 713-8) BASO % (test code = 0.3 % 706-2) GRAN MAT x10^3(ANC) 6.93 10*3/uL 1.99-6.95 (test code = 0298055636) IMM GRAN x10^3 (test 0.04 10*3/uL 0-0.06 code = 7280535719) LYMPH x10^3 (test code 0.64 10*3/uL 1.09-3.23 L = 731-0) MONO x10^3 (test code 0.80 10*3/uL 0.36-1.02 = 742-7) EOS x10^3 (test code = 0.33 10*3/uL 0.06-0.53 711-2) BASO x10^3 (test code 0.03 10*3/uL 0.01-0.09 = 704-7) Lab Interpretation Abnormal (test code = 73328-4) [facility], EXTREMITY, LOWER WITHOUT CONTRAST, RIGHT 2017-01-25 19:47:00FINAL [...] Correlation is recommended. Signed: Jorge Kumar Verified Date/Time: 01/25/2017 19:47:23 Reading Location: [address] Reading Room RAD, HIP, 2 VIEWS, [...] Kumar Verified Date/Time: 01/25/2017 19:11:49 [address] Chemistry 2014-02-18 16:35:99375Byuglttq StorywjEwirporhg0860-70-43 16:35:59476Ipqgwmwr CavrctbMfdmtrdkh8730-03-62 16:35:0032[facility] ZqoujhfLefqtulhn4630-49-24 16:35:90476Zgjaubdq JizfcnkPdtmudfdl3754-87-82 16:35:78276 MEQ/LMemorial Jimmy Nofdniwxj1393-83-58 16:35:004.3 MEQ/LMemorial EqmywmyIphrgqtfo0675-49-83 16:35:002.5[facility] LdtiaxcYdsacqtxm4660-09-97 16:35:0029[facility] Bdlsiwxgo3062-24-26 16:35:00 Test Item Value Reference Range Interpretation Comments BUN/CREAT (test code = BUN/CREAT) 08-05 [facility] FstslrnOcidnxjqu0872-34-08 16:35:004.2[facility] HermannChemistry 2014-02-18 16:35:008.9[facility] VmovrtiNrkzihrjb8706-62-88 16:35:0036[facility] VojgwiyJpsokmnep5806-30-38 16:35:0025[facility] DwubndiAcwfglcwc9668-53-38 16:35:23461Zenukwdd YtvwiblQtlqpownz2782-86-20 16:35:001.380[facility] Pcbustdyi1408-81-01 16:35:002.00[facility] VawvqxlNnxiyqpegf9101-06-14 16:35:00 13.9[facility] VwuwfzeGuqhajaaod0007-07-91 16:35:0041.4[facility] HermannHematology 2014-02-18 16:35:00019 K/CMMMemorial GubttkoNgqzlhhq5096-05-22 16:35:00Non ReactiveMemorial NzclkapZyzjktqui6900-40-02 16:35:79822Yqvpbkoo HermannChemistry 2014-02-18 16:35:29740Ivziwktz XgclbgiEhwvyviiq3667-04-92 16:35:0032[facility] CvbjzqwLqxvvwayx2776-86-39 16:35:95937Ddgkyxtp NnsokjxFcvwezspo1936-13-30 16:35:21435 MEQ/LMemorial XinzlbcMnaakxlxh8744-18-28 16:35:004.3 MEQ/LMemorial OndyxfxJjagebrpk9859-82-96 16:35:002.5[facility] FxvfcncTgctmawdd2420-87-26 16:35:0029[facility] BkynztkZxniucwgr6537-83-66 16:35:00 Test Item Value Reference Range Interpretation Comments BUN/CREAT (test code = BUN/CREAT) 12 08-05 [facility] NbogelkCclrkuuaz3116-69-84 16:35:004.2[facility]annChem[facility] 2014-02-18 16:35:008.9[facility] QonkqsmAsmdztzbd7658-48-27 16:35:0036[facility] JlltfkcFscjntkfe8890-25-88 16:35:0025[facility] VupfhczHvsydksuu6654-64-21 16:35:06501Rbrsfkam MzsgirjZfytjzzmq6206-01-93 16:35:001.380[facility] Epjqwlmyi3890-40-82 16:35:002.00[facility] XqjctcbXnafskwtjd7440-21-17 16:35:00 13.9[facility] IzshembQkrfkkkziw6644-38-47 16:35:0041.4[facility] HermannHematology 2014-02-18 16:35:89799 K/CMMMemorial GqsuykqTbseepit8858-94-59 16:35:00Non ReactiveMemorial ZrhcukvDcawsuwvr8748-40-46 20:45:29150Ggvyapyl HermannChemistry 2013-01-23 20:45:15309Qdqmyweb HxgodkfNkymasdxr6141-37-98 20:45:0023[facility] UbhjexzPwrfibjrs0424-82-54 20:45:13833Hkgojqey LalqlgfYenvpnwxz0149-11-29 20:45:64558Jpuwgxkv FhrcwjiDqxyupqpa8585-89-89 20:45:0023[facility] Covrwgyxz5987-69-06 20:45:00See Note mg/dLMemorial ImnykksFnoadgfam4013-94-40 20:45:93391 MEQ/LMemorial PlteamhGsrqverhj3122-94-12 20:45:004.5 MEQ/LMemorial NxsayxeBrpwszpuw2521-86-32 20:45:001.8[facility] JusoordPtxmueenl4826-16-29 20:45:0030[facility] UuduoijRejvczowu7020-28-77 20:45:00 Test Item Value Reference Range Interpretation Comments BUN/CREAT (test code = BUN/CREAT) 17 1 6-25 [facility] EqfywnvKtmvnmxag9021-44-68 20:45:004.2[facility] HermannChemistry 2013-01-23 20:45:009.3[facility] PexcfipWeozqcmff9492-10-56 20:45:0031[facility] RnzlegpRthfxbfhy2249-20-28 20:45:0020[facility] BrcwpukCptmkppid6585-24-40 20:45:84311Blnlcezh RdltsveNsrxolgol1092-95-81 20:45:001.390[facility] Gqnxffofn7173-08-74 20:45:001.33[facility] CnlqdsdQwnsnpuih4231-96-34 20:45:22349 [facility] JhhfxyeJqasyqkay9559-90-36 20:45:91218Sgpauctw HermannChemistry 2013-01-23 20:45:0023[facility] GgjcqkhVsjahhwhh8441-85-38 20:45:37568Gxsctfse HunhwnuXrfwqikxe6912-43-85 20:45:57998Rpzvhhmj WebicnqJeotgaozi6606-61-41 20:45:0023[facility] RfquthhLxcmkxrxv8546-62-11 20:45:00See Note mg/dLMemorial FbbjasdLpmgfuzpx3515-84-96 20:45:47455 MEQ/LMemorial FdpicvfMzjvidvww9770-77-86 20:45:004.5 MEQ/LMemorial ZalrnxzBvlmgtgec2168-03-32 20:45:001.8[facility] Bmpqoifsr7263-40-92 20:45:0030[facility] DgromwdQybodmegk4314-35-52 20:45:00 Test Item Value Reference Range Interpretation Comments BUN/CREAT (test code = BUN/CREAT) 17 1 6-25 [facility] SlbfmepRziwckjgo4044-83-07 20:45:004.2[facility]annChemistry 2013-01-23 20:45:009.3[facility] KebnlhaAldjhbqbl7561-16-22 20:45:0031[facility] QlwnyfdGcifkrrio9232-19-85 20:45:0020[facility] AxgbcqqBorboxshu4294-77-39 20:45:98902Vknvldlg HrraoleOpmcljjis7050-21-80 20:45:001.390[facility] Vbjetbmri3791-34-39 20:45:001.33[facility] GvumvlpQyhhkihbv6175-59-51 15:12:571.57 [facility] AllianceZzlrklkBapqpdamh8299-25-95 15:12:571.57[facility] 2012-04-02 15:12:571.[address] [place], [place] [address]RxsivkeOrzojjaxa5883-91-95 15:12:571.[address] [place] [address]"
--- NOTE | 2022-02-10 16:53 | EDPHYS ---
Physician Documentation [facility] Name: Amando Grossman Age: 76 yrs Sex: Male : 1945 Arrival Date: 02/10/2022 Time: 16:22 Bed 4 Private MD: ED Physician Zion Cueva HPI: 02/10 16:47 This 76 yrs old Male presents to ER via Other with complaints of Low Heart Rate. rn 16:47 The patient presents with dizziness, lightheadedness. Onset: The symptoms/episode rn began/occurred at an unknown time. Modifying factors: The symptoms are alleviated by nothing, the symptoms are aggravated by standing up. Associated signs and symptoms: Pertinent positives: shortness of breath, Pertinent negatives: abdominal pain, focal weakness, headache, seizure, syncope. Severity of symptoms: At their worst the symptoms were moderate in the emergency department the symptoms are unchanged. 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 - Social history:: Smoking status: Patient denies any tobacco usage or history of. - Family history:: not pertinent. - Hospitalizations: : The patient was recently seen at [facility]. ROS: 16:48 Constitutional: Negative for fever, chills, and weight loss, Eyes: Negative for injury, rn pain, redness, and discharge, Neck: Negative for injury, pain, and swelling, Cardiovascular: Negative for chest pain, palpitations Respiratory: Negative for cough, wheezing, and pleuritic chest pain, Abdomen/GI: Negative for abdominal pain, nausea, vomiting, diarrhea, and constipation, Back: Negative for injury and pain, MS/Extremity: Negative for injury and deformity, Skin: Negative for injury, rash, and discoloration, Neuro: Negative for headache, numbness, tingling, and seizure. Exam: 16:48 Constitutional: This is a well developed, well nourished patient who is awake, alert, rn and in no acute distress. Head/Face: Normocephalic, atraumatic. Cardiovascular: Bradycardic, regular Respiratory: No increased work of breathing, no retractions or nasal flaring. Abdomen/GI: soft, non-tender Skin: Warm, dry MS/ Extremity: NO cyanosis, right AKA Neuro: Awake and alert, GCS 15 16:48 ECG was reviewed by the Attending Physician. Vital Signs: 16:29 BP 176 / 47; Pulse 32; Resp 20; Temp 98.4; Pulse Ox 96% ; Weight 88.45 kg; Height 5 ft. kb3 8 in. (172.72 cm); Pain 0/10; 16:56 BP 176 / 47; Pulse 30; Resp 18; Pulse Ox 95% on R/A; Pain 0/10; mb9 17:30 BP 160 / 51; Pulse 38; Resp 18; Pulse Ox 97% on R/A; mb9 18:00 BP 153 / 51; Pulse 39; Resp 23; Pulse Ox 97% on R/A; mb9 18:30 BP 162 / 55; Pulse 38; Resp 18; Pulse Ox 97% on R/A; mb9 20:30 BP 158 / 48; Pulse 39; Resp 12; Pulse Ox 96% on R/A; jb4 16:29 Body Mass Index 29.65 (88.45 kg, 172.72 cm) kb3 MDM: 16:33 Patient medically screened. rn 16:48 Differential diagnosis: cardiac arrhythmia, hypovolemia, idiopathic dizziness, rn hyperkalemia. Data reviewed: vital signs, nurses notes, EKG, and as a result, I will admit patient. Counseling: I had a detailed discussion with the patient and/or guardian regarding: the historical points, exam findings, and any diagnostic results supporting the discharge/admit diagnosis, the need to transfer to another facility, for higher level of care, [facility] does not immediately have the required specialist. ED course: COnsulted with Dr. Momin, recommends transfer for complete heart block.. 18:10 ED course: Accepted for transfer to CCU by Dr. Bruce. rn 02/10 16:48 Order name: Basic Metabolic Panel; Complete Time: 18:06 rn 02/10 16:48 Order name: CBC with Diff; Complete Time: 17:51 rn 02/10 16:48 Order name: NT PRO-BNP; Complete Time: 18:06 rn 02/10 16:48 Order name: PT-INR; Complete Time: 18:06 rn 02/10 16:48 Order name: Troponin HS; Complete Time: 18:06 rn 02/10 16:57 Order name: SARS RAPID; Complete Time: 18:25 rn 02/10 16:48 Order name: XRAY Chest (1 view); Complete Time: 17:20 rn 02/10 16:48 Order name: EKG; Complete Time: 16:49 rn 02/10 16:48 Order name: Cardiac monitoring; Complete Time: 16:57 rn 02/10 16:48 Order name: EKG - Nurse/Tech; Complete Time: 16:57 rn 02/10 16:48 Order name: IV Saline Lock; Complete Time: 17:31 rn 02/10 16:48 Order name: Labs collected and sent; Complete Time: 17:31 rn 02/10 16:48 Order name: O2 Per Protocol; Complete Time: 16:57 rn 02/10 16:48 Order name: O2 Sat Monitoring; Complete Time: 16:57 rn EC:48 Rate is 32 beats/min. Rhythm is regular. QRS [place] is Normal. [place] interval is prolonged rn at 210 msec. QRS interval is prolonged at 144 msec. QT interval is normal. T waves are Normal. No ST changes noted. Clinical impression: 3rd degree heart block. Interpreted by me. Reviewed by me. Administered Medications: No medications were administered Disposition Summary: 02/10/22 16:53 Transfer Ordered Transfer Location: [facility] rn Reason: Higher level of care rn Condition: Stable rn Problem: an ongoing problem rn Symptoms: have worsened rn Accepting Physician: (02/10/22 21:30) jb4 Diagnosis - Atrioventricular block, complete rn - End stage renal disease rn - Dyspnea, unspecified rn Forms: - Medication Reconciliation Form rn - SBAR form rn Signatures: Dispatcher [employer] EDZion Bain MD MD rn Bryson, James, RN RN jb4 Christiana Lozano, RN RN kb3 Corrections: (The following items were deleted from the chart) 16:35 16:34 PMHx: cholesterol; kb3 kb3 17:55 16:48 Constitutional: This is a well developed, well nourished patient who is awake, rn alert, and in no acute distress. Head/Face: Normocephalic, atraumatic. Cardiovascular: Regular rate, no pulse deficit Respiratory: No increased work of breathing, no retractions or nasal flaring. Abdomen/GI: soft, non-tender Skin: Warm, dry MS/ Extremity: NO cyanosis, right AKA Neuro: Awake and alert, GCS 15 rn 21:30 16:53 Dr. spence jb4
--- NOTE | 2022-02-10 16:53 | ER ---
Nurse's Notes [facility] Name: Amando Grossman Age: 76 yrs Sex: Male : 1945 Arrival Date: 02/10/2022 Time: 16:22 Bed 4 Private MD: Diagnosis: Atrioventricular block, complete;End stage renal disease;Dyspnea, unspecified Presentation: 02/10 16:29 Chief complaint: Patient states: Heart rate in the 30s for "a while," feeling kb3 light-headed and mildly SOB this morning. Under the care of Dr Donovan for bradycardia. Coronavirus screen: Vaccine status: Patient reports receiving the 2nd dose of the covid vaccine. Client denies travel out of the [place] in the last 14 days. Ebola Screen: Patient negative for fever greater than or equal to 101.5 degrees Fahrenheit, and additional compatible Ebola Virus Disease symptoms Patient denies exposure to infectious person. Patient denies travel to an Ebola-affected area in the 21 days before illness onset. Initial Sepsis Screen: Does the patient meet any 2 criteria? No. Patient's initial sepsis screen is negative. Does the patient have a suspected source of infection? No. Patient's initial sepsis screen is negative. Risk Assessment: Do you want to hurt yourself or someone else? Patient reports no desire to harm self or others. Onset of symptoms is unknown. 16:29 Method Of Arrival: Other kb3 16:29 Acuity: KELLY 3 kb3 Triage Assessment: 16:34 General: Appears in no apparent distress. Behavior is calm, cooperative. Pain: Denies kb3 pain. 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 - Social history:: Smoking status: Patient denies any tobacco usage or history of. - Family history:: not pertinent. - Hospitalizations: : The patient was recently seen at [facility]. Screenin:16 [facility] ED Fall Risk Assessment (Adult) History of falling in the last 3 months, mb9 including since admission No falls in past 3 months (0 pts) Confusion or Disorientation No (0 pts) Intoxicated or Sedated No (0 pts) Impaired Gait No (0 pts) Mobility Assist Device Used No (0 pt) Altered Elimination No (0 pt) Score/Fall Risk Level 0 - 2 = Low Risk Oriented to surroundings, Maintained a safe environment. Abuse screen: Denies threats or abuse. Nutritional screening: No deficits noted. Tuberculosis screening: No symptoms or risk factors identified. Assessment: 16:55 General: Appears in no apparent distress. comfortable, Behavior is anxious. Pain: mb9 Denies pain. Neuro: [place] Agitation-Sedation Scale (RASS): 0 - Alert and Calm Level of Consciousness is awake, alert, obeys commands, Oriented to person, place, time, situation, Appropriate for age. Cardiovascular: Reports lightheadedness, Heart tones S1 S2 present Rhythm is sinus bradycardia. Respiratory: Airway is patent Respiratory effort is even, unlabored, Respiratory pattern is regular, symmetrical, Breath sounds are clear bilaterally. GI: Abdomen is round non-distended, Bowel sounds present X 4 quads. Abd is soft and non tender X 4 quads. : No signs and/or symptoms were reported regarding the genitourinary system. EENT: No signs and/or symptoms were reported regarding the EENT system. Derm: Skin is pink, warm \\T\\ dry. Musculoskeletal: Amputation of right leg. Range of motion: intact in all extremities. 16:55 Reassessment: AV fistula noted to left forearm. Thrill felt upon palpation and bruit mb9 noted. Derm:. Musculoskeletal:. 17:00 Reassessment: At bedside to start IV. Pt noted to have changes in rhythm from 32 bpm to mb9 245 bpm. Pt states "I feel like I'm about to pass out." Episode lasted appropriately 10 seconds. Pt heart rate went back to 34 bpm and denied feeling like he is about to pass out. Anay MOSQUERA, notified. No new orders at this time. 18:00 Reassessment: Patient denies pain at this time. mb9 18:00 General: Appears in no apparent distress. comfortable, Behavior is cooperative. Neuro: mb9 Level of Consciousness is awake, alert, obeys commands, Oriented to person, place, time, situation, Appropriate for age. Cardiovascular: Denies chest pain, lightheadedness, Rhythm is sinus bradycardia. Respiratory: Airway is patent. Derm: Skin is pink, warm \\T\\ dry. 20:55 Reassessment: report called to Amaury JURADO pt going to [facility] room CCU 1 bed 2. bb Vital Signs: 16:29 BP 176 / 47; Pulse 32; Resp 20; Temp 98.4; Pulse Ox 96% ; Weight 88.45 kg; Height 5 ft. kb3 8 in. (172.72 cm); Pain 0/10; 16:56 BP 176 / 47; Pulse 30; Resp 18; Pulse Ox 95% on R/A; Pain 0/10; mb9 17:30 BP 160 / 51; Pulse 38; Resp 18; Pulse Ox 97% on R/A; mb9 18:00 BP 153 / 51; Pulse 39; Resp 23; Pulse Ox 97% on R/A; mb9 18:30 BP 162 / 55; Pulse 38; Resp 18; Pulse Ox 97% on R/A; mb9 20:30 BP 158 / 48; Pulse 39; Resp 12; Pulse Ox 96% on R/A; jb4 16:29 Body Mass Index 29.65 (88.45 kg, 172.72 cm) kb3 ED Course: 16:22 Patient arrived in ED. jj6 16:33 Zion Cueva MD is Attending Physician. rn 16:34 Triage completed. kb3 16:34 Arm band placed on right wrist. kb3 16:45 EKG done, by ED staff, reviewed by Zion Cueva MD. mb9 16:54 Haley Eason, RN is Primary Nurse. mb9 17:00 Placed in gown. Bed in low position. Call light in reach. Side rails up X 1. Client mb9 placed on continuous cardiac and pulse oximetry monitoring. NIBP monitoring applied. playground monitor on. 17:08 SARS RAPID Sent. ph 17:11 XRAY Chest (1 view) In Process Unspecified. EDMS 17:30 Initial lab(s) drawn, by me, sent to lab. COVID swab sent to lab. Inserted saline lock: jl7 20 gauge in right hand, using aseptic technique. Blood collected. 17:55 initiated a transfer with Shey Armstrong Rn from the [facility]. eb Administered Medications: No medications were administered Medication: 17:16 VIS not applicable for this client. mb9 Outcome: 16:53 ER care complete, transfer ordered by . rn 21:30 Patient left the ED. jb4 Signatures: Dispatcher [employer] EDMS Britta Velazquez, RN RN Zion Al MD MD rn Hall, Patricia, RN RN ph Bryson, James, RN RN jb4 Bao Dkues RN RN jl7 Jenny Matthews Jennifer jj6 Christiana Lozano RN RN kb3 Haley Eason RN RN mb9 Corrections: (The following items were deleted from the chart) 16:35 16:34 PMHx: cholesterol; kb3 kb3 16:52 16:29 Pulse 32bpm; Resp 20bpm; Pulse Ox 96%; Temp 98.4F; 88.45 kg; Height 5 ft. 8 in.; kb3 BMI: 29.6; Pain 0/10; kb3 17:16 16:55 EENT: No signs and/or symptoms were reported regarding the EENT system. mb9 mb9 18:43 17:00 Reassessment: At bedside to start IV. Pt noted to have changes in rhythm from 32 mb9 bpm to 245 bpm. Pt states "I feel like I'm about to pass out." Episode lasted appropriately 10 seconds. Pt heart rate went back to 34 bpm and denied feeling like he is about to pass out. mb9
--- NOTE | 2022-02-10 17:16 | RAD REPORT ---
EXAM DESCRIPTION: RAD - Chest Single View - 02/10/2022 5:10 pm CLINICAL HISTORY: DYSPNEA COMPARISON: Chest Single View dated 01/22/2022; Chest Pa And Lat (2 Views) dated 08/31/2021; Chest Si ngle View dated 07/28/2021; Chest Single View dated 05/16/2021; Abdomen Pelvis Wo Contrast dated 2021 FINDINGS: Lines: None. Lungs: Mild right basilar opacities. Pleural: Blunted right costophrenic angle. Cardiac: Cardiomegaly. Mediastinum: Within normal limits. Bones: No acute fractures. Other: None IMPRESSION: Unchanged aeration of the lungs with probable small right pleural effusion and underlyin g atelectasis.
[2022-02-10 17:45] LABS: Absolute Lymphocytes (CBC) 0.6 K/uL (0.7-4.9); Hematocrit 35.1 % (39.6-49.0); Lymphocytes % 7.3 % (15.3-44.8); MCV 88.1 fL (80-100); MPV 7.2 fL (7.6-11.3); RBC Red Blood Cell Count 3.98 M/uL (4.33-5.43)
[2022-02-10 17:52] LABS: Potassium 4.2 mmol/L (3.5-5.1)
[2022-02-10 17:55] LABS: Protime INR 1.24
[2022-02-10 17:57] LABS: Troponin High Sensitivity 32.6 pg/mL (<58.9)
[2022-02-10 18:12] LABS: SARS-CoV-2 Antigen Rapid Res Negative (Negative)
[2022-02-10 21:35] VITALS: TEMP 98.4
[2022-02-10 21:41] VITALS: BP 158/48; O2SAT 96
--- NOTE | 2022-02-13 08:36 | EKG ---
Test Date: 2022-02-10 Test Time: 16:34:20 Marketing Coordinator: CHRIS MEASUREMENT RESULTS: Intervals: Rate: 32 WV: 210 QRSD: 144 QT: 636 QTc: 464 Felda: P: 61 WV: 210 QRS: 87 T: 50 INTERPRETIVE STATEMENTS: Sinus rhythm with 2nd degree AV block with 3:1 AV conduction Right bundle branch block Abnormal ECG Compared to ECG 01/23/2022 02:30:06 No significant changes Electronically Signed On 02-13-22 08:32:48 WINDOWS ADMINISTRATOR by Arnaldo Diaz
== END 2022-02-10 21:30 | disposition short-term general hospital (02) ==
LOC: ER 16:17
DX: I44.2 Atrioventricular block, complete (principal); I12.0 Hypertensive chronic kidney disease with stage 5 chronic kidney disease or end stage renal disease; N18.6 End stage renal disease; Z99.2 Dependence on renal dialysis; Z88.0 Allergy status to penicillin; Z88.8 Allergy status to other drugs, medicaments and biological substances; Z91.013 Allergy to seafood; Z89.611 Acquired absence of right leg above knee; Z20.822 Contact with and (suspected) exposure to COVID-19
CPT/HCPCS: 36415; 71045; 80048; 83880; 84484; 85025; 85610; 87811; 93005; 99284

== ENCOUNTER 2022-08-13 17:15 | Inpatient (IN) | payer OTHER, BC ==
--- OUTSIDE RECORDS SUMMARY | 2022-08-13 17:34 | XMS REPORT | Continuity of Care Document ---
:1945 Author Organization [facility] t Address [address] [facility] [address] [place] [address] Care Team Providers Name Role Phone LAURYN ALISON MOORE Primary Care Physician Unavailable [id number] Attending Clinician Unavailable SHARON DIAZ IGNAZIO Attending Clinician Unavailable Provider, Undefined Attending Clinician Unavailable Sekou Curtis Attending Clinician Unavailable Chaya Villafuerte Kelcey Attending Clinician Unavailable ALEKS CHOU Attending Clinician Unavailable José Luis Zaman MD Attending Clinician Rachele Zaman MD Attending Clinician Aleks Chou MD Attending Clinician Paolo Barcenas MD Attending Clinician VESTA AGUILAR Attending Clinician Unavailable Vesta Aguilar Attending Clinician [phone] NEERU MARLEY Attending Clinician Unavailable Neeru Marley MD Attending Clinician RADIOLOGY Attending Clinician Unavailable Radiology Attending Clinician Unavailable Doctor Unassigned, [place] Attending Clinician Unavailable Maddy Guo Attending Clinician Javad MOSQUERA, Arturo Gupta Attending Clinician [phone] Svetlana Cano MD Attending Clinician Daniel Rocha MD Attending Clinician Nicky Sandoval MA Attending Clinician Unavailable SANDRA GUO Attending Clinician Unavailable Usha MOSQUERA, Obi Almanza Attending Clinician Emilee Wooten MA Attending Clinician Unavailable Nolberto MOSQUERA, Suzanne Egan Attending Clinician [phone] Clint King DO Attending Clinician [phone] Dickson MOSQUERA, Kristopher Attending Clinician Liu Mccloud Attending Clinician Clint Graham MD Attending Clinician Oswald York MD Attending Clinician Wanda Pedraza Attending Clinician Wanda PICKENS Attending Clinician Unavailable Liss Mosley MD Attending Clinician [id number] Admitting Clinician Unavailable SHARON DIAZ IGNAZIO Admitting Clinician Unavailable CHAYA VILLAFUERTE Admitting Clinician Unavailable Sekou Curtis Admitting Clinician Unavailable Chaya Villafuerte Kelcey Admitting Clinician Unavailable RACHELE ZAMAN Admitting Clinician Unavailable JL FORTE Admitting Clinician Unavailable Jl Forte Admitting Clinician NEERU MARLEY Admitting Clinician Unavailable LIDA MUKHERJEE Admitting Clinician Unavailable SVETLANA CANO Admitting Clinician Unavailable JESSICA BELLAMY Admitting Clinician Unavailable CLINT [place] Admitting Clinician Unavailable Payers Payer Name Policy Type Policy Number Effective Date Expiration Date S ource [facility] [id number] BCTX BCTI [id number] MEDICARE A B [id number] 2010 00:00:00 [place] [id number] OS 00:00:00 [place] [id number] 2010 2024 00:00:00 00:00:00 MEDICARE PART A \\T\\ [id number] 2010 B 00:00:00 BCBS TRADITIONAL [id number] 2010 00:00:00 Problems Condition Condition Condition Status Onset Resolution Last Treating Co mments Source Name Details Category Date Date Treatment Clinician Date Flash Flash Disease Active [facility] 02-12 [facility] edema edema 00:00: Medical 00 [place] Bradycardi Bradycardi Disease Active 2021-[address] [facility] [place] GI BLEED GI BLEED Diagnosis Active 2021-022021-12-16 Memoria Active 02-15 05:39:00 l 12/16/2021 00:00: Carlton escoto [address] ACUTE ACUTE Diagnosis Active 2021-022021-12-27 Mem oria LOWER GI LOWER GI 02-15 21:46:00 l BLEEDING, BLEEDING, 00:00: Chinyere schneider HX OF [facility] 00 COLONIC D COLONIC D Active 12/16/2021 [facility] Diverticul Diverticul Disease Active 2021-[address] [facility] 02[facility]11 [facility] 00 [place] Lower GI Lower GI Disease Active 2021-02 [facility] 00 [place] Hyperkalem Hyperkalem Disease Active M ethodi ia ia [facility]: [facility]osp[facility] 00 l Acute GI Acute GI Disease Active Metho di bleeding bleeding 06-12 [facility] 00:00: Hospita 00 l LAB LAB Diagnosis Active 2020-11-14 Mem oria Active 10-01 15:58:00 l 10/01/2020 11:00: [place] escoto [address] 3RD DEMOCRAT 3RD DEMOCRAT Diagnosis Active 2020-10-02 Memoria LIFE LIFE 10-01 05:21:00 l FLIGHT FLIGHT 00:00: Jimmy Active 00 10/01/2020 [facility] GI bleed GI bleed Disease Active [...] Added automatic ally from request for surgery [id number] End stage End stage Disease Active Met [...] (finding) (finding) 23:24:01 l Diagnosis Jimmy 12/25/2021 [facility] Abdominal Abdominal Problem Resolve 2020-12-31 Memoria pain pain d 22:26:03 l (finding) (finding) Herm jennie Resolved Problem 12/31/2020 [facility] Chronic Chronic Problem Resolve 2020-12-31 M emoria kidney kidney d 22:26:03 l disease disease [place] stage 3 stage 3 (disorder) (disorder) Resolved Problem 12/31/2020 [facility] Degenerati Problem Resolve 2020-12-31 Memoria 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 (disorder) Resolved Problem 12/31/2020 RT EYE [facility] Procedure Procedure Problem Resolve 2020-12-31 Memoria on heart on heart d 22:26:03 l (procedure (procedure He rmann ) ) Resolved Problem 12/31/2020 STENT PLACEMENT [facility] Insomnia Insomnia Problem Resolve 2020-12-31 Memoria (disorder) (disorder) d 22:26:03 l Resolved Jimmy Problem 12/31/2020 [facility] Urinary Urinary Problem Resolve 2020-12-31 M emoria tract tract d 22:26:03 l infectious infectious He rmann disease disease (disorder) (disorder) Resolved Problem 12/31/2020 [facility] Atheroscle Atheroscl Problem Active 2020-12-31 Memoria rosis of erosis of 22:26:03 l coronary coronary Carlton n artery artery (disorder) (disorder) Active Problem 12/31/2020 Data migrated from GE [employer] on 07/10/14. [facility] Gastroesop Gastroeso Problem Active 2020-12-31 Memoria hageal phageal 22:26:03 l reflux reflux Jimmy disease disease (disorder) (disorder) Active Problem 12/31/2020 Data migrated from E[employer] Systemscity on 07/10/14. [facility] Benign Benign Problem Active 2021-12-25 Evert dora prostatic prostatic 23:24:01 l hyperplasi hyperplasi He rmann a a (disorder) (disorder) Active [facility] Chronic Problem Active 2021-12-25 Me moria infectious infectious 23:24:01 l disease disease Jimmy (disorder) (disorder) Active Problem 12/25/2021 [facility] Coronary Coronary Problem Active 2021-12-25 Memoria arterioscl arterioscl 23:24:01 l erosis erosis [place] (disorder) (disorder) Active Problem 12/25/2021 [facility] Diabetes Diabetes Problem Active 2021-12-25 Memoria mellitus mellitus 23:24:01 l type 2 type 2 [place] (disorder) (disorder) Active Problem 12/25/2021 Automatica lly added by Discern Expert with order of Add Problem Diabetes Type II on December 01, 2018 14:23:39 CDT with order ID: [id number] 9.0 entered by Lida Mukherjee. [facility] Dyslipidem Dyslipide Problem Active 2021-12-25 Memoria ia liseth 23:24:01 l (disorder) (disorder) He rmann Active Problem 12/25/2021 [facility] History of History Problem Active 2021-12-25 Memoria colectomy of 23:24:01 l (situation colectomy Her garcia ) (situation ) Active Problem 12/25/2021 [facility] Hypertensi Hypertens Problem Active 2021-12-25 Memoria ve emmanuel 23:24:01 l disorder, disorder, Herm jennie systemic systemic arterial arterial (disorder) (disorder) Active Problem 12/25/2021 Data migrated from AppSling[employer] on 07/10/14. [facility] Obesity Obesity Problem Active 2021-12-25 Me moria (disorder) (disorder) 23:24:01 l Active [place] Problem 12/25/2021 [facility] Prosthetic Prostheti Problem Active 2021-12-25 Memoria joint c joint 23:24:01 l infection infection Herm jennie (disorder) (disorder) Active Problem 12/25/2021 [facility] ILLNESS, ILLNESS, Diagnosis Active 2021-12-16 Memoria UNSPECIFIE UNSPECIFIE 05:39:00 l D D Active Jimmy [facility] GASTROINTE Diagnosis Active 2021-12-27 Memoria STINAL GASTROINTE 21:46:00 l HEMORRHAGE STINAL [place] n , HEMORRHAGE UNSPECIFIE , D UNSPECIFIE D Active [facility] PERSONAL PERSONAL Diagnosis Active 2021-12-27 Memoria HISTORY OF HISTORY OF 21:46:00 l OTHER OTHER [place] DISEASES DISEASES OF TH TH Active [facility] Allergies, Adverse Reactions, Alerts Allergy Allergy Status Severity Reaction(s) Onset Inactive Treating Comm ents Source Name Type Date Date Clinician Iodine FA Active ND [facility] and 4-02 Clear Iodide 00:00: Smith Containi 00 [facility] shellfis FA Active SV [facility] h 4-02 Clear derived 00:00: Smith 00 [facility] PINICILL DA Active ND ITCHING [facility] IN 05-13 Clear 00:00: Smith 00 [facility] No Known DA Active U [facility] Allergie 05-13 [place] s 00:00: d 00 [facility] No Known DA Active U [facility] Allergie 05-13 [place] s 00:00: d 00 [facility] Iodine FA Active ND DIARRHEA [facility] and 05-13 [place] Iodide 00:00: d Containi 00 [facility] Produc shellfis FA Active SV SWELLING [facility] h 05-13 [place] derived 00:00: d 00 [facility] Iodine Propensi Active Rash 2020-0 Univers ty to 9-30 ity of adverse 00:00: [place] reaction 00 [facility] Penicill Propensi Active Anaphylaxis 2020-0 U nivers ins ty to 9-30 ity of adverse 00:00: [place] reaction 00 [facility] IODINE DRUG Active Rash 2020-0 Univers INGREDI 9-30 ity of 00:00: [place] 00 [facility] PENICILL Drug Active Anaphylaxis 2020-0 Uni vers INS Class 9-30 ity of 00:00: [place] 00 [facility] SHELLFIS DRUG Active Diarrhea 2020-0 Univer s H INGREDI 9-30 ity of DERIVED 00:00: [place] 00 [facility] Shellfis Propensi Active Nausea 2020-0 Univer s h ty to and/or 9-30 ity of Derived adverse Vomiting 00:00: [place] reaction 00 [facility] Penicill Propensi Active Anaphylaxis 2020-0 U nivers ins ty to 9-30 ity of adverse 00:00: [place] reaction 00 [facility] EICOSAPE Allergy Active 2017-0 [facility] NTAENOIC 8-13 ACID 00:00: 00 Eicosape Propensi Active 2017-[address] [facility] ntaenoic ty to 8-13 [facility] Acid adverse 00:00: Medical reaction 00 [place] Shellfis Propensi Active Nausea And 2015-02 [...] Low Rash 2015-02 [facility] 0-20 00:00: 00 Iodine Propensi Active Rash 2015-[address] [facility] ty to 0-20 [facility] adverse 00:00: Medical reaction 00 Center s ATORVAST Allergy Active [facility] ATIN 2-24 00:00: 00 Atorvast Propensi Active [facility] atin ty to 2-24 [facility] adverse 00:00: Medical reaction 00 Center s PENICILL Allergy Active High Hives [facility] INS 5-29 00:00: 00 SHELLFIS Allergy Active Diarrhea [facility] H 5-29 CONTAINI 00:00: NG 00 PRODUCTS Penicill Propensi Active Hives, unknown [facility] [...] Stop Date Source Natural father Heart disease [facility] Natural mother COPD [facility] Social History Social Habit Start Date Stop Date Quantity Comments Source History [facility] Gender identity [facility] Sexual orientation [facility] History of Social 2022-04-17 2022-04-[address] function 00:00:00 00:00:00 Hospital History [facility] 2022-02-11 2022-02-[address] [facility] Transport Med 00:00:00 00:00:[address] [facility] 2022-02-11 2022-02-[address] [facility] Housing Unable to 00:00:00 00:00:00 Medical Center Pay History [facility] 2022-02-11 2022-02-[address] [facility] Housing Places 00:00:00 00:00:00 Medical Ce nter Lived History [facility] 2022-02-11 2022-02-[address] [facility] Housing Homeless 00:00:00 00:00:00 Medical Center Last Year Exposure to 2021-11-29 2021-12-[address] [facility] SARS-CoV-2 (event) 00:00:00 16:30:00 Medica l Center Alcohol intake 2021-06-13 2021-06-13 Current [facility] 00:00:00 00:00:00 non-drinker of Hospital alcohol (finding) Tobacco use and 2017-08-06 2017-08-06 Smokeless [facility] exposure 00:00:00 00:00:00 tobacco non-user Hospital Social History 2015-01-31 2015-01-31 [facility] 21:49:01 21:49:01 Sex [birth year] [facility] 00:00:00 00:00:00 Hospital Smoking Status Start Date Stop Date Source Tobacco smoking status [facility] Tobacco smoking consumption [facility] Medications Ordered Filled Start Stop Current Ordering Indication Dosage Frequency Signature Comments Components Source Medication Medication Date Date Medication? Clinician (SIG) Name Name amLODIPine 2023- No 5mg QD Take [address] (NORVASC) 5 02-14 tablet (5 Marli kes MG tablet 00:00: 23:59 mg total) Me dical 00 :00 by mouth Center daily. ferrous 2023- No 325mg QD Take [address] sulfate 325 02-14 tablet [facility] (65 FE) MG 00:00: 23:59 (325 mg Med ical tablet 00 :00 total) by Center mouth daily. COLESEVELAM Yes 3.75g Take 3.[address] HCL 1-03 g by mouth [facility] (WELCHOL 13:01: 2 (two) Medica l ORAL) 52 times Center daily with breakfast and dinner . zolpidem Yes 10mg Take [address] (AMBIEN) 10 -03 by mouth Luke s mg tablet 13:01: every Medical 52 night as Center needed for Insomnia. losartan 0 Yes 50mg QD Take [address] (COZAAR) 50 -03 by mouth Luke s MG tablet 13:01: daily. Medica l 52 Center sertraline Yes 50mg Take [address] (ZOLOFT) 50 -03 by mouth. Coco es MG tablet 13:01: Medical 52 Center aspirin 81 Yes 81mg QD Take [address] MG EC 03 by mouth [facility] tablet 13:01: daily. Medical 52 Center B complex Yes 1{capsu Take [address] 11-folic-C- 02-13 le} capsule by Marli guillaume biot-zinc 13:01: mouth as Medi raman (Dialyvite) 52 needed Center 1-100-300-5 With 0 dialysis mg-mg-mcg-m day. g Tab gabapentin Yes 300mg Take [address] (NEURONTIN) 1-03 mg by [facility] 300 MG 13:01: mouth. Medical capsule 52 Center tamsulosin Yes .4mg Take 0.[address] (FLOMAX) 1-03 mg by [facility] 0.4 mg Cap 13:01: mouth. Medic al 24 hr 52 Center capsule mINOCYCLine Yes 100mg Take [address] (MINOCIN,DY -03 capsule [facility] NACIN) 100 00:00: (100 mg Medi raman MG capsule 00 total) by Cent er mouth every 12 (twelve) hours. acetaminoph 2022- No 650mg Take [address] en 02-13 12-29 tablets [facility] (TYLENOL) 00:00: 23:59 (650 mg Medi raman 325 MG 00 :00 total) by Center tablet mouth every 6 (six) hours as needed for up to 360 days. DULoxetine 2021-02 No 60mg QD Take [address] (CYMBALTA) - 12- by mouth Luke s 60 MG 23:28: 00:00 daily. Medical capsule 21 :00 Center coenzyme 2021-02- No 1 po qd [facility] t Q10 100 mg 02-10 [facility] Chew 23:28: 00:00 Medical 21 :00 [place] niacin 500 2021-02- No [address] MG CR 02-10 [facility] capsule 23:28: 00:00 Medical 21 :00 [place] furosemide 2021-02- No 40mg Take [address] (LASIX) 40 02-10 by mouth. Coco es MG tablet 23:28: 00:00 Medical 21 :00 [place] tramadol 50 2021-02 Yes 50 mg = 1 M emoria mg oral 1-11 tab, PO, l tablet 21:50: Q12H, PRN [place] n 00 Pain Score 7-10, # 12 tab, 0 Refill(s), Pharmacy: [facility] [id number], 172.72, cm, 12/16/21 5:50:00 CDT, Height, 86.6, kg, 12/16/21 5:50:00 CDT, Weight tramadol 50 2021-02 Yes 50 mg = 1 M emoria mg oral 1-11 tab, PO, l tablet 21:50: Q12H, PRN [place] n 00 Pain Score 7-10, # 12 tab, 0 Refill(s), Pharmacy: [facility] [id number], 172.72, cm, 12/16/21 5:50:00 CDT, Height, 86.6, kg, 12/16/21 5:50:00 CDT, Weight tramadol 50 2021-02 Yes 50 mg = 1 M emoria mg oral 1-11 tab, PO, l tablet 21:50: Q12H, PRN [place] n 00 Pain Score 7-10, # 12 tab, 0 Refill(s), Pharmacy: [facility] [id number], 172.72, cm, 12/16/21 5:50:00 CDT, Height, 86.6, kg, 12/16/21 5:50:00 CDT, Weight tramadol 50 2021-02 Yes 50 mg = 1 M emoria mg oral 1-11 tab, PO, l tablet 21:50: Q12H, PRN [place] n 00 Pain Score 7-10, # 12 tab, 0 Refill(s), Pharmacy: [facility] [id number], 172.72, cm, 12/16/21 5:50:00 CDT, Height, 86.6, kg, 12/16/21 5:50:00 CDT, Weight tramadol 50 2021-02 Yes 50 mg = 1 M emoria mg oral 1-11 tab, PO, l tablet 21:50: Q12H, PRN [place] n 00 Pain Score 7-10, # 12 tab, 0 Refill(s), Pharmacy: [facility] [id number], 172.72, cm, 12/16/21 5:50:00 CDT, Height, 86.6, kg, 12/16/21 5:50:00 CDT, Weight hydrocortis 2021-02 Yes 25 mg = 1 M emoria one 25 mg 1-11 supp, NH, l rectal 21:49: BID, PRN Jimmy suppository 00 Hemorrhoid s, # 24 supp, 0 Refill(s), Pharmacy: [facility] [id number], 172.72, cm, 12/16/21 5:50:00 CDT, Height, 86.6, kg, 12/16/21 5:50:00 CDT, Weight polyethylen 2021-02 Yes 17 gm, PO, Memoria e glycol 1-11 BID, # 255 l 3350 oral 21:49: gm, 0 Jimmy powder for 00 Refill(s), reconstitut Pharmacy: [facility] [id number], 172.72, cm, 12/16/21 5:50:00 CDT, Height, 86.6, kg, 12/16/21 5:50:00 CDT, Weight hydrocortis 2021-02 Yes 25 mg = 1 M emoria one 25 mg 1-11 supp, NH, l rectal 21:49: BID, PRN Jimmy suppository 00 Hemorrhoid s, # 24 supp, 0 Refill(s), Pharmacy: [facility] [id number], 172.72, cm, 12/16/21 5:50:00 CDT, Height, 86.6, kg, 12/16/21 5:50:00 CDT, Weight polyethylen 2021-02 Yes 17 gm, PO, Memoria e glycol 1-11 BID, # 255 l 3350 oral 21:49: gm, 0 Jimmy powder for 00 Refill(s), reconstitut Pharmacy: [facility] [id number], 172.72, cm, 12/16/21 5:50:00 CDT, Height, 86.6, kg, 12/16/21 5:50:00 CDT, Weight hydrocortis 2021-02 Yes 25 mg = 1 M emoria one 25 mg 1-11 supp, NH, l rectal 21:49: BID, PRN [place] suppository 00 Hemorrhoid s, # 24 supp, 0 Refill(s), Pharmacy: [facility] [id number], 172.72, cm, 12/16/21 5:50:00 CDT, Height, 86.6, kg, 12/16/21 5:50:00 CDT, Weight polyethylen 2021-02 Yes 17 gm, PO, Memoria e glycol 1-11 BID, # 255 l 3350 oral 21:49: gm, 0 [place] powder for 00 Refill(s), reconstitut Pharmacy: [facility] [id number], 172.72, cm, 12/16/21 5:50:00 CDT, Height, 86.6, kg, 12/16/21 5:50:00 CDT, Weight hydrocortis 2021-02 Yes 25 mg = 1 M emoria one 25 mg 1-11 supp, NH, l rectal 21:49: BID, PRN Jimmy suppository 00 Hemorrhoid s, # 24 supp, 0 Refill(s), Pharmacy: [facility] [id number], 172.72, cm, 12/16/21 5:50:00 CDT, Height, 86.6, kg, 12/16/21 5:50:00 CDT, Weight polyethylen 2021-02 Yes 17 gm, PO, Memoria e glycol 1-11 BID, # 255 l 3350 oral 21:49: gm, 0 [place] powder for 00 Refill(s), reconstitut Pharmacy: [facility] [id number], 172.72, cm, 12/16/21 5:50:00 CDT, Height, 86.6, kg, 12/16/21 5:50:00 CDT, Weight hydrocortis 2021-02 Yes 25 mg = 1 M emoria one 25 mg 1-11 supp, NH, l rectal 21:49: BID, PRN Jimmy suppository 00 Hemorrhoid s, # 24 supp, 0 Refill(s), Pharmacy: [facility] [id number], 172.72, cm, 12/16/21 5:50:00 CDT, Height, 86.6, kg, 12/16/21 5:50:00 CDT, Weight polyethylen 2021-02 Yes 17 gm, PO, Memoria e glycol 1-11 BID, # 255 l 3350 oral 21:49: gm, 0 Jimmy powder for 00 Refill(s), reconstitut Pharmacy: ion [facility] [id number], 172.72, cm, 12/16/21 5:50:00 CDT, Height, 86.6, kg, 12/16/21 5:50:00 CDT, Weight Flagyl 500 2021-02 Yes 500 mg = 1 M emoria mg oral 1-11 tab, PO, l tablet 21:48: TID, X 8 [place] 00 day, # 24 tab, 0 Refill(s), Pharmacy: [facility] [id number], 172.72, cm, 12/16/21 5:50:00 CDT, Height, 86.6, kg, 12/16/21 5:50:00 CDT, Weight docusate 2021-02 Yes 100 mg = 1 Mem oria sodium 100 1-11 cap, PO, l mg oral 21:48: Daily, # [place] n capsule 00 30 cap, 0 Refill(s), Pharmacy: [facility] [id number], 172.72, cm, 12/16/21 5:50:00 CDT, Height, 86.6, kg, 12/16/21 5:50:00 CDT, Weight Flagyl 500 2021-02 Yes 500 mg = 1 M emoria mg oral 1-11 tab, PO, l tablet 21:48: TID, X 8 [place] 00 day, # 24 tab, 0 Refill(s), Pharmacy: [facility] [id number], 172.72, cm, 12/16/21 5:50:00 CDT, Height, 86.6, kg, 12/16/21 5:50:00 CDT, Weight docusate 2021-02 Yes 100 mg = 1 Mem oria sodium 100 1-11 cap, PO, l mg oral 21:48: Daily, # [place] n capsule 00 30 cap, 0 Refill(s), Pharmacy: [facility] [id number], 172.72, cm, 12/16/21 5:50:00 CDT, Height, 86.6, kg, 12/16/21 5:50:00 CDT, Weight Flagyl 500 2021-02 Yes 500 mg = 1 M emoria mg oral 1-11 tab, PO, l tablet 21:48: TID, X 8 Jimmy 00 day, # 24 tab, 0 Refill(s), Pharmacy: [facility] [id number], 172.72, cm, 12/16/21 5:50:00 CDT, Height, 86.6, kg, 12/16/21 5:50:00 CDT, Weight docusate 2021-02 Yes 100 mg = 1 Mem oria sodium 100 1-11 cap, PO, l mg oral 21:48: Daily, # [place] n capsule 00 30 cap, 0 Refill(s), Pharmacy: [facility] [id number], 172.72, cm, 12/16/21 5:50:00 CDT, Height, 86.6, kg, 12/16/21 5:50:00 CDT, Weight Flagyl 500 2021-02 Yes 500 mg = 1 M emoria mg oral 1-11 tab, PO, l tablet 21:48: TID, X 8 [place] 00 day, # 24 tab, 0 Refill(s), Pharmacy: [facility] [id number], 172.72, cm, 12/16/21 5:50:00 CDT, Height, 86.6, kg, 12/16/21 5:50:00 CDT, Weight docusate 2021-02 Yes 100 mg = 1 Mem oria sodium 100 1-11 cap, PO, l mg oral 21:48: Daily, # [place] n capsule 00 30 cap, 0 Refill(s), Pharmacy: [facility] [id number], 172.72, cm, 12/16/21 5:50:00 CDT, Height, 86.6, kg, 12/16/21 5:50:00 CDT, Weight Flagyl 500 2021-02 Yes 500 mg = 1 M emoria mg oral 1-11 tab, PO, l tablet 21:48: TID, X 8 [place] 00 day, # 24 tab, 0 Refill(s), Pharmacy: [facility] [id number], 172.72, cm, 12/16/21 5:50:00 CDT, Height, 86.6, kg, 12/16/21 5:50:00 CDT, Weight docusate 2021-02 Yes 100 mg = 1 Mem oria sodium 100 1-11 cap, PO, l mg oral 21:48: Daily, # [place] n capsule 00 30 cap, 0 Refill(s), Pharmacy: [facility] [id number], 172.72, cm, 12/16/21 5:50:00 CDT, Height, 86.6, kg, 12/16/21 5:50:00 CDT, Weight ciprofloxac 2021-02 Yes 500 mg = 1 Memoria in 500 mg 1-11 tab, PO, l oral tablet 21:46: Daily, X 8 [place] 00 day, # 8 tab, 0 Refill(s), Pharmacy: [facility] [id number], 172.72, cm, 12/16/21 5:50:00 CDT, Height, 86.6, kg, 12/16/21 5:50:00 CDT, Weight ciprofloxac 2021-02 Yes 500 mg = 1 Memoria in 500 mg 1-11 tab, PO, l oral tablet 21:46: Daily, X 8 [place] 00 day, # 8 tab, 0 Refill(s), Pharmacy: [facility] [id number], 172.72, cm, 12/16/21 5:50:00 CDT, Height, 86.6, kg, 12/16/21 5:50:00 CDT, Weight ciprofloxac 2021-02 Yes 500 mg = 1 Memoria in 500 mg 1-11 tab, PO, l oral tablet 21:46: Daily, X 8 Jimmy 00 day, # 8 tab, 0 Refill(s), Pharmacy: [facility] [id number], 172.72, cm, 12/16/21 5:50:00 CDT, Height, 86.6, kg, 12/16/21 5:50:00 CDT, Weight ciprofloxac 2021-02 Yes 500 mg = 1 Memoria in 500 mg 1-11 tab, PO, l oral tablet 21:46: Daily, X 8 Jimmy 00 day, # 8 tab, 0 Refill(s), Pharmacy: [facility] [id number], 172.72, cm, 12/16/21 5:50:00 CDT, Height, 86.6, kg, 12/16/21 5:50:00 CDT, Weight ciprofloxac 2021-02 Yes 500 mg = 1 Memoria in 500 mg 1-11 tab, PO, l oral tablet 21:46: Daily, X 8 [place] 00 day, # 8 tab, 0 Refill(s), Pharmacy: [facility] [id number], 172.72, cm, 12/16/21 5:50:00 CDT, Height, 86.6, kg, 12/16/21 5:50:00 CDT, Weight prednisoLON 2021-02 Yes 1 drp, Evert dora E sodium 1-09 LEFT EYE, l phosphate 22:31: BID, 0 Carlton n ophthalmic 00 Refill(s) 1% solution moxifloxaci 2021-02 Yes 1 drp, Evert dora n 0.5% 1-09 LEFT EYE, l ophthalmic 22:31: BID, 0 Mary nn solution 00 Refill(s) bromfenac 2021-02 Yes 1 drp, Memori a 0.075% 1-09 LEFT EYE, l ophthalmic 22:31: BID, 0 Mary nn solution 00 Refill(s) prednisoLON 2021-02 Yes 1 drp, Evert dora E sodium 1-09 LEFT EYE, l phosphate 22:31: BID, 0 Carlton n ophthalmic 00 Refill(s) 1% solution moxifloxaci 2021-02 Yes 1 drp, Evert dora n 0.5% 1-09 LEFT EYE, l ophthalmic 22:31: BID, 0 Mary nn solution 00 Refill(s) bromfenac 2021-02 Yes 1 drp, Memori a 0.075% 1-09 LEFT EYE, l ophthalmic 22:31: BID, 0 Mary nn solution 00 Refill(s) prednisoLON 2021-02 Yes 1 drp, Evert dora E sodium 1-09 LEFT EYE, l phosphate 22:31: BID, 0 Carlton n ophthalmic 00 Refill(s) 1% solution moxifloxaci 2021-02 Yes 1 drp, Evert dora n 0.5% 1-09 LEFT EYE, l ophthalmic 22:31: BID, 0 Mary nn solution 00 Refill(s) bromfenac 2021-02 Yes 1 drp, Memori a 0.075% 1-09 LEFT EYE, l ophthalmic 22:31: BID, 0 Mary nn solution 00 Refill(s) prednisoLON 2021-02 Yes 1 drp, Evert dora E sodium 1-09 LEFT EYE, l phosphate 22:31: BID, 0 [place] n ophthalmic 00 Refill(s) 1% solution moxifloxaci 2021-02 Yes 1 drp, Evert dora n 0.5% 1-09 LEFT EYE, l ophthalmic 22:31: BID, 0 Mary nn solution 00 Refill(s) bromfenac 2021-02 Yes 1 drp, Memori a 0.075% 1-09 LEFT EYE, l ophthalmic 22:31: BID, 0 Mary nn solution 00 Refill(s) prednisoLON 2021-02 Yes 1 drp, Evert dora E sodium 1-09 LEFT EYE, l phosphate 22:31: BID, 0 [place] n ophthalmic 00 Refill(s) 1% solution moxifloxaci 2021-02 Yes 1 drp, Evert dora n 0.5% 1-09 LEFT EYE, l ophthalmic 22:31: BID, 0 Mary nn solution 00 Refill(s) bromfenac 2021-02 Yes 1 drp, Memori a 0.075% 1-09 LEFT EYE, l ophthalmic 22:31: BID, 0 Mary nn solution 00 Refill(s) timolol 2021-02 Yes 1 drp, Memoria maleate 1-09 LEFT EYE, l 0.5% 22:17: BID, 0 Jimmy preservativ 00 Refill(s) e-free ophthalmic solution timolol 2021-02 Yes 1 drp, Memoria maleate 1-09 LEFT EYE, l 0.5% 22:17: BID, 0 [place] preservativ 00 Refill(s) e-free ophthalmic solution timolol 2021-02 Yes 1 drp, Memoria maleate - LEFT EYE, l 0.5% 22:17: BID, 0 Jimmy preservativ 00 Refill(s) e-free ophthalmic solution timolol 2021-02 Yes 1 drp, Memoria maleate 02-19 LEFT EYE, l 0.5% 22:17: BID, 0 [place] preservativ 00 Refill(s) e-free ophthalmic solution timolol [...] Q10 100 mg 02-11 [facility]: [address] niacin 500 2021-02 Yes [address] [facility] CR 02-11 [facility] capsule 10:59: [place] [address] [facility] losartan 2021-02 Yes 50mg QD Take [address] [facility] (COZAAR) 50 02-11 by mouth Luke s MG tablet 10:59: daily. Medica l [facility] sertraline 2021-02 Yes 50mg Take [address] (ZOLOFT) 50 02-11 by mouth. Coco es MG tablet 10:59: [place] [address] [facility] aspirin 81 2021-02 Yes 81mg QD Take [address] MG EC 02-11 [facility] 10:59: daily. [facility] furosemide 2021-02 Yes 40mg Take [address] (LASIX) 40 1-01 by mouth. Luke s MG tablet 10:59: [...] 60 MG 10:59: daily. Medical capsule 52 [place] coenzyme 2021-02 Yes 1 po qd [facility] [...] 60 MG 10:59: daily. Medical capsule 52 [place] coenzyme 2021-02 Yes [address] [facility] Q10 100 mg 02-11 [facility] 10:[facility]: Medical [address] [place] [address] niacin 500 2021-02 Yes 1 po qd [...] [address] (LASIX) 40 1-01 by mouth. Luke [facility] MG tablet 10:59: [...] 60 MG 10:59: daily. Medical capsule 52 [place] coenzyme 2021-02 Yes [address] [facility] Q10 100 mg 02-11 [facility] 10:[facility]: Medical [address] [place] [address] niacin 500 2021-02 Yes [address] [facility] CR 02-11 [facility] capsule 10:59: [facility] losartan 2021-02 Yes 50mg QD Take [address] [facility] (COZAAR) 50 02-11 by mouth Luke s MG tablet 10:59: daily. Medica l [address] [place] [address] sertraline 2021-02 Yes 50mg Take 50 mg [...] s MG tablet 10:59: daily. Medica l [address] [place] [address] sertraline 2021-02 Yes 50mg Take 50 mg [...] total) by Cente r mouth daily. ciprofloxac 2022-1 2022- No 500mg QD Take [address] in HCl 02-11 tablet [facility] (CIPRO) 500 00:00: 00:00 (500 mg Me dical MG tablet 00 :00 total) by Cente r mouth daily. metroNIDAZO 2021-02- No 500mg Q.[id number] Take [address] [facility] (FLAGYL) 02-11 [id number] tablet [facility] 500 MG 00:00: 23:59 3D (500 mg Medical tablet 00 :00 total) by Center mouth 3 (three) times daily for 7 days. metroNIDAZO 2021-02- No 500mg Q.20189144 Take [address] [facility] LE (FLAGYL) 02-11 [id number] tablet [facility] 500 MG 00:00: 23:59 3D (500 mg Medical tablet 00 :00 total) by Center mouth 3 (three) times daily for 7 days. metroNIDAZO 2021-02- No 500mg Q.58896331 Take [address] [facility] (FLAGYL) 02-11 [id number] [facility] 500 MG 00:00: 23:59 3D (500 mg Medical tablet 00 :00 total) by Center mouth 3 (three) times daily for 7 days. metroNIDAZO 2021-02- No 500mg Q.[id number] Take [address] [facility] (FLAGYL) 02-11 [id number] tablet [facility] 500 MG 00:00: 23:59 3D (500 mg Medical tablet 00 :00 total) by Center mouth 3 (three) times daily for 7 days. metroNIDAZO 2021-02- No 500mg Q.[id number] Take [address] [facility] (FLAGYL) 02-11 [id number] tablet [facility] 500 MG 00:00: 23:59 3D (500 mg Medical tablet 00 :00 total) by Center mouth 3 (three) times daily for 7 days. metroNIDAZO 2021-02- No 500mg Q.[id number] Take [address] [facility] (FLAGYL) 02-11 [id number] [facility] 500 MG 00:00: 23:59 3D (500 mg Medical tablet 00 :00 total) by Center mouth 3 (three) times daily for 7 days. metroNIDAZO 2021-02- No 500mg Q.56867399 Take [address] [facility] (FLAGYL) 02-1108 [id number] tablet [facility] 500 MG 00:00: 23:59 3D (500 mg Medical tablet 00 :00 total) by Center mouth 3 (three) times daily for 7 days. zolpidem 2021-02- No 10mg Take [address] [facility] [address] [facility] (AMBIEN) 10 0-31 10-29 by mouth. Marli kes mg tablet 21:40: 00:00 Medical 40 :00 [place] zolpidem 2021-02- No 10mg Take [address] [facility] [address] [facility] (AMBIEN) 10 0-31 10-29 by mouth. Marli kes mg tablet 21:40: 00:00 Medical 40 :00 [place] zolpidem 2021-02- No 10mg Take [address] [facility] [address] [facility] (AMBIEN) 10 0-31 10-29 by mouth. Marli kes mg tablet 21:40: 00:00 Medical 40 :00 [place] zolpidem 2021-02- No 10mg Take [address] [facility] [address] [facility] (AMBIEN) 10 0-31 10-29 by mouth. Marli kes mg tablet 21:40: 00:00 Medical 40 :00 [place] zolpidem 2021-02- No 10mg Take [address] [facility] [address] [facility] (AMBIEN) 10 0-31 10-29 by mouth. Marli kes mg tablet 21:40: 00:00 Medical 40 :00 [place] zolpidem 2021-02- No 10mg Take [address] [facility] [address] [facility] (AMBIEN) 10 0-31 10-29 by mouth. Marli kes mg tablet 21:40: 00:00 Medical 40 :00 [place] zolpidem 2021-02- No 10mg Take [address] [facility] [address] [facility] (AMBIEN) 10 0-31 10-29 by mouth. Marli kes mg tablet 21:40: 00:00 Medical 40 :00 [place] NIFEdipine 2021-02- No 60mg QD Take [address] [facility] (PROCARDIA- 0-29 10-29 by mouth Coco es XL) 60 MG 17:00: 00:00 daily. Medic al (OSM) 24 hr 17 :00 [place] tablet NIFEdipine 2021-02- No 60mg QD Take [...] 24 hr 17 :00 Center tablet NIFEdipine 2021-02 No 60mg QD Take [address] [facility] (PROCARDIA- 0-29 10-29 by mouth [facility]oco es XL) 60 MG 17:00: 00:00 daily. Medic al (OSM) 24 hr 17 :00 Center tablet NIFEdipine 2021-02 No 60mg QD Take [address] [facility] (PROCARDIA- 0-29 10-29 by mouth [facility]oco es XL) 60 MG 17:00: 00:00 daily. Medic al (OSM) 24 hr 17 :00 Center tablet NIFEdipine 2021-02 No 60mg QD Take [address] [facility] (PROCARDIA- 0-29 10-29 by mouth [facility]oco es XL) 60 MG 17:00: 00:00 daily. Medic al (OSM) 24 hr 17 :00 Center tablet NIFEdipine 2021-02 No 60mg QD Take 60 mg [facility] [...] 12 :00 every l tablet evening. metoprolol 2021-0 2021- No 12.5mg QD Take 12.5 [facility] tartrate 6-29 06-[address] (LOPRESSOR) 13:17: 00:00 mouth Hosp omega 25 mg 12 :00 every l tablet evening. metoprolol 2021-2021- No 12.5mg QD Take 12.5 [facility] tartrate 6-29 06-[address] (LOPRESSOR) 13:17: 00:00 mouth [facility]osp omega 25 mg 12 :00 every l tablet evening. metoprolol 2021-2021- No 12.5mg QD Take 12.5 [facility] tartrate 6-29 06-[address] (LOPRESSOR) 13:17: 00:00 mouth [facility]osp omega 25 mg 12 :00 every l tablet evening. metoprolol 2021- No 12.5mg QD Take 12.5 [facility] tartrate 6-29 06-[address] (LOPRESSOR) 13:17: 00:00 mouth [facility]osp omega 25 mg 12 :00 every l tablet evening. gabapentin 2021-0 Yes 300mg QD Take 300 [...] have 10mg dose. Please order 10mg. gabapentin 2022-0 Yes 300mg QD Take 300 [facility] (NEURONTIN) 5-[address] 300 mg 15:42: mouth [facility]osp[facility] capsule 01 nightly. l traZODone 2022-0 Yes 150mg QD Take 150 [facility] [...] mouth [facility]ospita capsule 01 nightly. l traZODone 2022-0 Yes 150mg QD Take 150 [facility] [...] mouth [facility]ospita capsule 01 nightly. l traZODone 2022-0 Yes 150mg QD Take 150 [facility] (DESYREL) 5-[address] 150 MG 15:42: mouth [facility]ospita tablet 01 nightly. l zolpidem 2022-0 Yes 10mg QD Take 10 mg [facility] (AMBIEN) 10 5-[address] mg tablet 15:42: nightly. Hosp omega 01 NOTE: l Patient must have 10mg dose. Please order 10mg. gabapentin 2022-0 Yes 300mg QD Take 300 [facility] (NEURONTIN) 5-[address] 300 mg 15:42: mouth [facility]ospita capsule 01 nightly. l traZODone 2022-0 Yes 150mg QD Take 150 [facility] [...] have 10mg dose. Please order 10mg. aspirin 2021-2021- No 81mg QD Take 81 mg [facility] (ECOTRIN) - 05-[address] 81 MG 15:42: 00:00 daily. [facility]ospita enteric 01 :00 l coated tablet losartan 2021-2021- No 50mg Q.5D Take 50 mg [facility] (COZAAR) 50 - 05-05 by mouth 2 s t MG [...] 01 :00 times a l day. aspirin 81mg QD Take 81 mg [facility] (ECOTRIN) 06-16 05-[address] 81 MG 15:42: 00:00 daily. [facility]osp[facility] enteric 01 :00 l coated tablet losartan No 50mg Q.5D Take 50 mg [facility] (COZAAR) 50 06-16 05-05 by mouth 2 s t MG [...] Hospita capsule 49 every l morning. clopidogreL 2021-0 Yes 75mg QD Take 75 mg [facility] [...] Hospita capsule 49 every l morning. clopidogreL 2021-0 Yes 75mg QD Take 75 mg [facility] [...] times a day for 30 days. losartan 0 2021- No 75mg Q.5D Take 3 [facility] (COZAAR) 25 5-05 06-[address] MG tablet 00:00: 04:59 (75 mg Hospi ta 00 :00 total) by l mouth 2 (two) times a day for 30 days. losartan 2021-0 2021- No 75mg Q.5D Take 3 [facility] (COZAAR) 25 5-05 06-[address] MG tablet 00:00: 04:59 (75 mg Hospi ta 00 :00 total) by l mouth 2 (two) times a day for 30 days. losartan 2021-0 2021- No 75mg Q.5D Take 3 Method [...] times a day for 30 days. losartan 2021-2021- No 75mg Q.5D Take 3 Method i [...] day for 30 days. metroNIDAZO 2021- No [id number] 500mg Q.92523617 Take 1 [facility] (FLAGYL) 06-15- [id number] tablet st 500 MG 00:00: 04:59 3D (500 mg Hospita tablet 00 :00 total) by l mouth 3 (three) times a day for 8 days. ciprofloxac 2021- No [id number] 500mg Q.5D Take 1 [facility] (CIPRO) 06-[address] 500 MG 00:00: 04:59 (500 mg Hospita tablet 00 :00 total) by l mouth 2 (two) times a day for 8 days. metroNIDAZO 2021- No [id number] 500mg Q.02725652 Take 1 [facility] (FLAGYL) 06-15-[id number] 500 MG 00:00: 04:59 3D (500 mg Hospita tablet 00 :00 total) by l mouth 3 (three) times a day for 8 days. ciprofloxac 2021- No [id number] 500mg Q.5D Take 1 [facility] (CIPRO) 06-[address] 500 MG 00:00: 04:59 (500 mg Hospita tablet 00 :00 total) by l mouth 2 (two) times a day for 8 days. metroNIDAZO 2021-0 2021- No [id number] 500mg Q.54664313 Take 1 [facility] (FLAGYL) 06-[id number] 500 MG 00:00: 04:59 3D (500 mg Hospita tablet 00 :00 total) by l mouth 3 (three) times a day for 8 days. ciprofloxac 2021-2021- No [id number] 500mg Q.5D Take 1 [facility] (CIPRO) 06-[address] 500 MG 00:00: 04:59 (500 mg Hospita tablet 00 :00 total) by l mouth 2 (two) times a day for 8 days. metroNIDAZO 2021-2021- No [id number] 500mg Q.68260380 Take 1 [facility] (FLAGYL) 06-[id number] 500 MG 00:00: 04:59 3D (500 mg Hospita tablet 00 :00 total) by l mouth 3 (three) times a day for 8 days. ciprofloxac 2021-0 2021- No [id number] 500mg Q.5D Take 1 [facility] (CIPRO) 06-[address] 500 MG 00:00: 04:59 (500 mg Hospita tablet 00 :00 total) by l mouth 2 (two) times a day for 8 days. metroNIDAZO 2021-0 2021- No [id number] 500mg Q.22534848 Take 1 [facility] (FLAGYL) 06-[id number] 500 MG 00:00: 04:59 3D (500 mg Hospita tablet 00 :00 total) by l mouth 3 (three) times a day for 8 days. ciprofloxac 2021-0 2021- No [id number] 500mg Q.5D Take 1 [facility] (CIPRO) 06-[address] 500 MG 00:00: 04:59 (500 mg Hospita tablet 00 :00 total) by l mouth 2 (two) times a day for 8 days. metroNIDAZO 2021-0 2021- No [id number] 500mg Q.67418817 Take 1 [facility] (FLAGYL) 06-[id number] 500 MG 00:00: 04:59 3D (500 mg Hospita tablet 00 :00 total) by l mouth 3 (three) times a day for 8 days. ciprofloxac 2021-0 2- No [id number] 500mg Q.5D Take 1 [facility] (CIPRO) 06-[address] 500 MG 00:00: 04:59 (500 mg Hospita tablet 00 :00 total) by l mouth 2 (two) times a day for 8 days. metroNIDAZO 2021-0 2021- No [id number] 500mg Q.29583636 Take 1 [facility] (FLAGYL) 06-[id number] 500 MG 00:00: 04:59 3D (500 mg Hospita tablet 00 :00 total) by l mouth 3 (three) times a day for 8 days. ciprofloxac 2021-0 2021- No [id number] 500mg Q.5D Take 1 [facility] in (CIPRO) [...] 1-18 tab, PO, l tablet 20:08: Bedtime, Ros[place] 00 PRN for sleep, # 30 tab, 0 Refill(s), Pharmacy: [facility] [id number], 170.18, cm, 06/22/19 13:48:00 CDT, Height, 86.818, kg, 06/22/19 13:48:00 CDT, Weight zolpidem 2020-02 Yes 10 mg = 1 M emoria mg oral 1-18 tab, PO, l tablet 20:08: Bedtime, Jimmy 00 PRN for sleep, # 30 tab, 0 Refill(s), Pharmacy: [facility] [id number], 170.18, cm, 06/22/19 13:48:00 CDT, Height, 86.818, kg, 06/22/19 13:48:00 CDT, Weight zolpidem 2020-02 Yes 10 mg = 1 M emoria mg oral 1-18 tab, PO, l tablet 20:08: Bedtime, [place] 00 PRN for sleep, # 30 tab, 0 Refill(s), Pharmacy: [facility] [id number], 170.18, cm, 06/22/19 13:48:00 CDT, Height, 86.818, kg, 06/22/19 13:48:00 CDT, Weight zolpidem 2020-02 Yes 10 mg = 1 M emoria mg oral 1-18 tab, PO, l tablet 20:08: Bedtime, Jimmy 00 PRN for sleep, # 30 tab, 0 Refill(s), Pharmacy: [facility] [id number], 170.18, cm, 06/22/19 13:48:00 CDT, Height, 86.818, kg, 06/22/19 13:48:00 CDT, Weight zolpidem 10 2020-02 Yes 10 mg = 1 M emoria mg oral 1-18 tab, PO, l tablet 20:08: Bedtime, [place] 00 PRN for sleep, # 30 tab, 0 Refill(s), Pharmacy: [facility] [id number], 170.18, cm, 06/22/19 13:48:00 CDT, Height, 86.818, kg, 06/22/19 13:48:00 CDT, Weight Trazodone 2020-02 Yes = 1 tab, Evert dora Hydrochlori 0-28 PO, l de 50 MG 17:53: Bedtime, # Her garcia Oral Tablet 00 90 tab, 1 Refill(s), Pharmacy: [facility] [id number], 170.18, cm, 06/22/19 13:48:00 CDT, Height, 86.818, kg, 06/22/19 13:48:00 CDT, Weight trazodone 2020-02 Yes = 1 tab, Evert dora 50 mg oral 0-28 PO, l tablet 17:53: Bedtime, # Mary nn 00 90 tab, 1 Refill(s), Pharmacy: [facility] [id number], 170.18, cm, 06/22/19 13:48:00 CDT, Height, 86.818, kg, 06/22/19 13:48:00 CDT, Weight Trazodone 2020-02 Yes = 1 tab, Evert dora Hydrochlori 0-28 PO, l de 50 MG 17:53: Bedtime, # Her garcia Oral Tablet 00 90 tab, 1 Refill(s), Pharmacy: [facility] [id number], 170.18, cm, 06/22/19 13:48:00 CDT, Height, 86.818, kg, 06/22/19 13:48:00 CDT, Weight trazodone 2020-02 Yes = 1 tab, Evert dora 50 mg oral 0-28 PO, l tablet 17:53: Bedtime, # Mary nn 00 90 tab, 1 Refill(s), Pharmacy: [facility] [id number], 170.18, cm, 06/22/19 13:48:00 CDT, Height, 86.818, kg, 06/22/19 13:48:00 CDT, Weight Trazodone 2020-02 Yes = 1 tab, Evert dora Hydrochlori 0-28 PO, l de 50 MG 17:53: Bedtime, # Her garcia Oral Tablet 00 90 tab, 1 Refill(s), Pharmacy: [facility] [id number], 170.18, cm, 06/22/19 13:48:00 CDT, Height, 86.818, kg, 06/22/19 13:48:00 CDT, Weight trazodone 2020-02 Yes = 1 tab, Evert dora 50 mg oral 0-28 PO, l tablet 17:53: Bedtime, # Mary nn 00 90 tab, 1 Refill(s), Pharmacy: [facility] [id number], 170.18, cm, 06/22/19 13:48:00 CDT, Height, 86.818, kg, 06/22/19 13:48:00 CDT, Weight Trazodone 2020-02 Yes = 1 tab, Evert dora Hydrochlori 0-28 PO, l de 50 MG 17:53: Bedtime, # garcia Oral Tablet 00 90 tab, 1 Refill(s), Pharmacy: [facility] [id number], 170.18, cm, 06/22/19 13:48:00 CDT, Height, 86.818, kg, 06/22/19 13:48:00 CDT, Weight trazodone 2020-02 Yes = 1 tab, Evert dora 50 mg oral 0-28 PO, l tablet 17:53: Bedtime, # Mary nn 00 90 tab, 1 Refill(s), Pharmacy: [facility] [id number], 170.18, cm, 06/22/19 13:48:00 CDT, Height, 86.818, kg, 06/22/19 13:48:00 CDT, Weight Trazodone 2020-02 Yes = 1 tab, Evert dora Hydrochlori 0-28 PO, l de 50 MG 17:53: Bedtime, # Her garcia Oral Tablet 00 90 tab, 1 Refill(s), Pharmacy: [facility] [id number], 170.18, cm, 06/22/19 13:48:00 CDT, Height, 86.818, kg, 06/22/19 13:48:00 CDT, Weight trazodone 2020-02 Yes = 1 tab, Evert dora 50 mg oral 0-28 PO, l tablet 17:53: Bedtime, # Mary nn 00 90 tab, 1 Refill(s), Pharmacy: [facility] [id number], 170.18, cm, 06/22/19 13:48:00 CDT, Height, 86.818, kg, 06/22/19 13:48:00 CDT, Weight zolpidem 10 2020-02 Yes 10 mg = 1 M emoria mg oral 0-01 tab, PO, l tablet 22:04: Bedtime, Jimmy 00 PRN for sleep, # 30 tab, 0 Refill(s), Pharmacy: [facility] [id number], 170.18, cm, 06/22/19 13:48:00 CDT, Height, 86.818, kg, 06/22/19 13:48:00 CDT, Weight zolpidem 10 2020-02 Yes 10 mg = 1 M emoria mg oral 0-01 tab, PO, l tablet 22:04: Bedtime, [place] 00 PRN for sleep, # 30 tab, 0 Refill(s), Pharmacy: [facility] [id number], 170.18, cm, 06/22/19 13:48:00 CDT, Height, 86.818, kg, 06/22/19 13:48:00 CDT, Weight zolpidem 2020-02 Yes 10 mg = 1 M emoria mg oral 0-01 tab, PO, l tablet 22:04: Bedtime, Jimmy 00 PRN for sleep, # 30 tab, 0 Refill(s), Pharmacy: [facility] [id number], 170.18, cm, 06/22/19 13:48:00 CDT, Height, 86.818, kg, 06/22/19 13:48:00 CDT, Weight zolpidem 10 2020-02 Yes 10 mg = 1 M emoria mg oral 0-01 tab, PO, l tablet 22:04: Bedtime, Jimmy 00 PRN for sleep, # 30 tab, 0 Refill(s), Pharmacy: [facility] [id number], 170.18, cm, 06/22/19 13:48:00 CDT, Height, 86.818, kg, 06/22/19 13:48:00 CDT, Weight zolpidem 2020-02 Yes 10 mg = 1 M emoria mg oral 0-01 tab, PO, l tablet 22:04: Bedtime, Jimmy 00 PRN for sleep, # 30 tab, 0 Refill(s), Pharmacy: [facility] [id number], 170.18, cm, 06/22/19 13:48:00 CDT, Height, 86.818, kg, 06/22/19 13:48:00 CDT, Weight metoprolol 0 Yes See [facility]oria tartrate 25 8-19 Instructio l mg oral 16:56: ns, 1 tab Mary nn tablet 00 in the am and 0.5 in the pm, # 135 ea, 3 Refill(s), Pharmacy: [facility] [id number], 170.18, cm, 06/22/19 13:48:00 CDT, Height, 86.818, kg, 06/22/19 13:48:00 CDT, Weight metoprolol 0 Yes See Memoria tartrate 25 8-19 Instructio l mg oral 16:56: ns, 1 tab Mary nn tablet 00 in the am and 0.5 in the pm, # 135 ea, 3 Refill(s), Pharmacy: [facility] [id number], 170.18, cm, 06/22/19 13:48:00 CDT, Height, 86.818, kg, 06/22/19 13:48:00 CDT, Weight metoprolol 0 Yes See Memoria tartrate 25 8-19 Instructio l mg oral 16:56: ns, 1 tab Mary nn tablet 00 in the am and 0.5 in the pm, # 135 ea, 3 Refill(s), Pharmacy: [facility] [id number], 170.18, cm, 06/22/19 13:48:00 CDT, Height, 86.818, kg, 06/22/19 13:48:00 CDT, Weight metoprolol 2020-0 Yes See Memoria tartrate 25 8-19 Instructio l mg oral 16:56: ns, 1 tab Mary nn tablet 00 in the am and 0.5 in the pm, # 135 ea, 3 Refill(s), Pharmacy: [facility] [id number], 170.18, cm, 06/22/19 13:48:00 CDT, Height, 86.818, kg, 06/22/19 13:48:00 CDT, Weight metoprolol 2020-0 Yes See Memoria tartrate 25 8-19 Instructio l mg oral 16:56: ns, 1 tab Mary nn tablet 00 in the am and 0.5 in the pm, # 135 ea, 3 Refill(s), Pharmacy: [facility] [id number], 170.18, cm, 06/22/19 13:48:00 CDT, Height, 86.818, kg, 06/22/19 13:48:00 CDT, Weight tamsulosin 2020-0 Yes = 1 cap, Mem oria 0.4 mg oral 7-28 PO, Daily, l capsule 15:55: # 90 [place] 00 unknown unit, 3 Refill(s), Pharmacy: [facility] [id number], 170.18, cm, 06/22/19 13:48:00 CDT, Height, 86.818, kg, 06/22/19 13:48:00 CDT, Weight tamsulosin 2020-0 Yes = 1 cap, Mem oria 0.4 mg oral 7-28 PO, Daily, l capsule 15:55: # 90 [place] 00 unknown unit, 3 Refill(s), Pharmacy: [facility] [id number], 170.18, cm, 06/22/19 13:48:00 CDT, Height, 86.818, kg, 06/22/19 13:48:00 CDT, Weight tamsulosin 2020-0 Yes = 1 cap, Mem oria 0.4 mg oral 7-28 PO, Daily, l capsule 15:55: # 90 Jimmy 00 unknown unit, 3 Refill(s), Pharmacy: [facility] [id number], 170.18, cm, 06/22/19 13:48:00 CDT, Height, 86.818, kg, 06/22/19 13:48:00 CDT, Weight tamsulosin 2020-0 Yes = 1 cap, Mem oria 0.4 mg oral 7-28 PO, Daily, l capsule 15:55: # 90 Jimmy 00 unknown unit, 3 Refill(s), Pharmacy: [facility] [id number], 170.18, cm, 06/22/19 13:48:00 CDT, Height, 86.818, kg, 06/22/19 13:48:00 CDT, Weight tamsulosin 2020-0 Yes = 1 cap, Mem oria 0.4 mg oral 7-28 PO, Daily, l capsule 15:55: # 90 [place] 00 unknown unit, 3 Refill(s), Pharmacy: [facility] [id number], 170.18, cm, 06/22/19 13:48:00 CDT, Height, 86.818, kg, 06/22/19 13:48:00 CDT, Weight pantoprazol 2020-0 Yes = 1 tab, Me moria e 40 mg 7-28 PO, Daily, l oral 15:53: # 90 tab, Jimmy enteric 00 3 coated Refill(s), tablet Pharmacy: [facility] [id number], 170.18, cm, 06/22/19 13:48:00 CDT, Height, 86.818, kg, 06/22/19 13:48:00 CDT, Weight pantoprazol 2020-0 Yes = 1 tab, Me moria e 40 mg 7-28 PO, Daily, l oral 15:53: # 90 tab, Roslyn enteric 00 3 coated Refill(s), tablet Pharmacy: [facility] [id number], 170.18, cm, 06/22/19 13:48:00 CDT, Height, 86.818, kg, 06/22/19 13:48:00 CDT, Weight pantoprazol 2020-0 Yes = 1 tab, Me moria e 40 mg 7-28 PO, Daily, l oral 15:53: # 90 tab, Jimmy enteric 00 3 coated Refill(s), tablet Pharmacy: [facility] [id number], 170.18, cm, 06/22/19 13:48:00 CDT, Height, 86.818, kg, 06/22/19 13:48:00 CDT, Weight pantoprazol 1-0 Yes = 1 tab, Me moria e 40 mg 7-28 PO, Daily, l oral 15:53: # 90 tab, Jimmy enteric 00 3 coated Refill(s), tablet Pharmacy: [facility] [id number], 170.18, cm, 06/22/19 13:48:00 CDT, Height, 86.818, kg, 06/22/19 13:48:00 CDT, Weight pantoprazol 1-0 Yes = 1 tab, Me moria e 40 mg 7-28 PO, Daily, l oral 15:53: # 90 tab, [place] enteric 00 3 coated Refill(s), tablet Pharmacy: [facility] [id number], 170.18, cm, 06/22/19 13:48:00 CDT, Height, 86.818, kg, 06/22/19 13:48:00 CDT, Weight sertraline 1-0 Yes 50 mg = 1 Me moria 50 mg oral 7-28 tab, PO, l tablet 15:52: Daily, # Jimmy 00 90 tab, 3 Refill(s), Pharmacy: [facility] [id number], 170.18, cm, 06/22/19 13:48:00 CDT, Height, 86.818, kg, 06/22/19 13:48:00 CDT, Weight sertraline 2021-0 Yes 50 mg = 1 Me moria 50 mg oral 7-28 tab, PO, l tablet 15:52: Daily, # Jimmy 00 90 tab, 3 Refill(s), Pharmacy: [facility] [id number], 170.18, cm, 06/22/19 13:48:00 CDT, Height, 86.818, kg, 06/22/19 13:48:00 CDT, Weight sertraline 2021-0 Yes 50 mg = 1 Me moria 50 mg oral 7-28 tab, PO, l tablet 15:52: Daily, # Jimmy 00 90 tab, 3 Refill(s), Pharmacy: [facility] [id number], 170.18, cm, 06/22/19 13:48:00 CDT, Height, 86.818, kg, 06/22/19 13:48:00 CDT, Weight sertraline 0 Yes 50 mg = 1 Me moria 50 mg oral 7-28 tab, PO, l tablet 15:52: Daily, # Jimmy 00 90 tab, 3 Refill(s), Pharmacy: [facility] [id number], 170.18, cm, 06/22/19 13:48:00 CDT, Height, 86.818, kg, 06/22/19 13:48:00 CDT, Weight sertraline 0 Yes 50 mg = 1 Me moria 50 mg oral 7-28 tab, PO, l tablet 15:52: Daily, # Roslyn 90 tab, 3 Refill(s), Pharmacy: [facility] [id number], 170.18, cm, 06/22/19 13:48:00 CDT, Height, 86.818, kg, 06/22/19 13:48:00 CDT, Weight PreserVisio 0 Yes 0 Memori a n AREDS 2 7-28 Refill(s) l 15:34: Roslyn 00 PreserVisio 2020-0 Yes 0 Memori a n AREDS 2 7-28 Refill(s) l 15:34: Roslyn 00 PreserVisio 2020-0 Yes 0 Memori a n AREDS 2 7-28 Refill(s) l 15:34: Jimmy 00 PreserVisio 2020-0 Yes 0 Memori a n AREDS 2 7-28 Refill(s) l 15:34: Jimmy 00 PreserVisio 2020-0 Yes 0 Memori a n AREDS 2 7-28 Refill(s) l 15:34: Jimmy 00 gabapentin 2020-0 Yes 300 mg = 1 M emoria 300 mg oral 7-28 cap, PO, l capsule 15:32: TID, 0 Jimmy 00 Refill(s) gabapentin 2020-0 Yes 300 mg = 1 M emoria 300 mg oral 7-28 cap, PO, l capsule 15:32: TID, 0 Jimmy 00 Refill(s) gabapentin Yes 300 mg = 1 M emoria 300 mg oral 7-28 cap, PO, l capsule 15:32: TID, 0 Jimmy 00 Refill(s) gabapentin 0 Yes 300 mg = 1 M emoria 300 mg oral 728 cap, PO, l capsule 15:32: TID, 0 Jimmy 00 Refill(s) gabapentin Yes 300 mg = 1 M emoria 300 mg oral 728 cap, PO, l capsule 15:32: TID, 0 Roslyn 00 Refill(s) furosemide Yes 40 mg = 1 Me moria 40 mg oral 7-28 tab, PO, l tablet 15:30: Daily, 0 Roslyn 00 Refill(s) furosemide Yes 40 mg = 1 Me moria 40 mg oral 7-28 tab, PO, l tablet 15:30: Daily, 0 Jimmy 00 Refill(s) furosemide Yes 40 mg = 1 Me moria 40 mg oral 7-28 tab, PO, l tablet 15:30: Daily, 0 Roslyn 00 Refill(s) furosemide Yes 40 mg = 1 Me moria 40 mg oral 7-28 tab, PO, l tablet 15:30: Daily, 0 Jimmy 00 Refill(s) furosemide Yes 40 mg = 1 Me moria 40 mg oral 7-28 tab, PO, l tablet 15:30: Daily, 0 [place] 00 Refill(s) aspirin 81 0 Yes 81 mg = 1 Me moria mg tablet, - tab, PO, l enteric 15:29: Daily, # [place] n coated 00 90 tab, 3 Refill(s) aspirin 81 0 Yes 81 mg = 1 Me moria mg tablet, 7-28 tab, PO, l enteric 15:29: Daily, # [place] n coated 00 90 tab, 3 Refill(s) aspirin 81 2020-0 Yes 81 mg = 1 Me moria mg tablet, - tab, PO, l enteric 15:29: Daily, # [place] n coated 00 90 tab, 3 Refill(s) aspirin 81 0 Yes 81 mg = 1 Me moria mg tablet, 7- tab, PO, l enteric 15:29: Daily, # [...] Yes Q.5D into each M ethodi PROPIONATE 03-[address] NASL 17:35: (two) Hospita 31 times a l day. [place] twice daily diphenhydrA Yes 25mg Take 25 mg [facility] MINE [address] (BENADRYL) 17:35: once. Hospit [...] 300mg QD Take 1 Met hodi (NEURONTIN) 03-25 03-[address] 300 mg 00:00: 04:59 (300 mg Hospita capsule 00 :00 total) by l mouth nightly for 30 days. aspirin 2020- No 81mg Q.5D Take 1 [facility] (ECOTRIN) 2-12 03-15 tablet (81 st 81 MG 00:00: 04:59 mg total) Hospit a enteric 00 :00 by mouth 2 l coated (two) tablet times a day for 30 days. traZODone 150mg QD Take 1 Meth herminia (DESYREL) 12 03-[address] 150 MG 00:00: 04:59 (150 mg Hospita tablet 00 :00 total) by l mouth nightly for 30 days. zolpidem 5mg QD Take 1 Method i (AMBIEN) 5 03-25-15 tablet (5 st MG tablet 00:00: 04:59 mg total) Ho spita 00 :00 by mouth l nightly for 30 days. sulfamethox 1{tbl} QD Take 1 M ethodi azole-trime - 02-[address] thoprim 00:00: 00:00 mouth Hospita (Bactrim) 00 :00 daily. l 400-80 mg per tablet sulfamethox TAKE ONE M ethodi azole-trime -18 - TABLET BY st thoprim 00:00: 00:00 MOUTH Hospita (BACTRIM 00 :00 DAILY l DS) 800-160 mg per tablet [facility] 2016-02 Yes 3.75g Take 3.[address] [facility] HCL 2-15 g by mouth [facility] (WELCHOL 17:11: 2 (two) Medica l ORAL) 46 times Center daily with breakfast and dinner . coenzyme 2016-02 Yes [address] [facility] Q10 100 mg 2-15 [facility] Chew 17:11: [address] niacin 500 2016-02 Yes [address] [facility] MG CR 2-15 [facility] capsule 17:11: [address] COLESEVELAM 2016-02 Yes 3.75g Take 3.[address] HCL 2-15 g by mouth [facility] (WELCHOL 17:11: 2 (two) Medica l ORAL) 46 times Center daily with breakfast and dinner . coenzyme 2016-02 Yes [address] [facility] Q10 100 mg 2-15 [facility] Chew 17:11: [address] niacin 500 2016-02 Yes [address] [facility] MG CR 2-15 [facility] capsule 17:11: [address] zolpidem 2016-02 Yes 10mg Take 10 [...] (OSM) 24 hr 17 Center tablet tamsulosin 2015-0 Yes .4mg 0.4 mg . [...] on nasal times spray daily . metoprolol 2014-0 Yes 25mg Q.5D 25 mg 2 [facility] [...] times Medical tablet 00 daily . Center fluticasone Yes 2{spray Q.5D [address] [facility] [address] (FLONASE) 5-12 } by Nasal [facility] 50 00:00: route 2 Medical mcg/actuati 00 (two) Center on nasal times spray daily . metoprolol Yes Q.5D 2 (two) [facility] (LOPRESSOR) 5-12 times [facility] 50 MG 00:00: daily . Medical tablet 00 [place] nisoldipine Yes 34mg QD 34 mg [facility] [...] 00:00: times Medical tablet 00 daily . [place] clopidogrel 2014-0 Yes QD daily . [facility] [...] 00:00: daily . Medical tablet 00 Center clopidogrel 2014-0 Yes [...] 00:00: times Medical tablet 00 daily . [place] nisoldipine Yes 34mg QD 34 mg [facility] (SULAR) 34 5-12 daily . [facility] MG 24 hr 00:00: Medical tablet 00 Center clopidogrel 2014-0 Yes QD daily . [facility] (PLAVIX) 75 5-12 [facility] mg tablet 00:00: Medical 00 [place] fluticasone Yes 2{spray Q.5D [address] [facility] [address] (FLONASE) 5-12 } by Nasal [facility] 50 00:00: route 2 Medical mcg/actuati 00 (two) Center on nasal times spray daily . metoprolol Yes 25mg Q.5D [address] [facility] (LOPRESSOR) 5-12 (two) [facility] 50 MG 00:00: times Medical tablet 00 daily . [place] nisoldipine 2021- No 34mg QD [address] [address] (SULAR) 34 5-12 10-29 daily . [facility] MG 24 hr 00:00: 00:00 Medical tablet 00 :00 [place] nisoldipine 2021- No 34mg QD [address] [address] (SULAR) 34 5-12 10-29 daily . [facility] MG 24 hr 00:00: 00:00 Medical tablet 00 :00 [place] nisoldipine 2021- No 34mg QD [address] (SULAR) 34 5-12 10-29 daily . [facility] MG 24 hr 00:00: 00:00 Medical tablet 00 :00 [place] nisoldipine 2021- No 34mg QD [address] [address] (SULAR) 34 5-12 10-29 daily . [facility] MG 24 hr 00:00: 00:00 Medical tablet 00 :00 [place] nisoldipine 2021- No 34mg QD [address] (SULAR) 34 5-12 10-29 daily . [facility] MG 24 hr 00:00: 00:00 Medical tablet 00 :00 [place] nisoldipine 2021- No 34mg QD [address] (SULAR) 34 5-12 10-29 daily . [facility] MG 24 hr 00:00: 00:00 Medical tablet 00 :00 [place] nisoldipine 2021- No 34mg QD [address] (SULAR) 34 5-12 10-29 daily . [facility] MG 24 hr 00:00: 00:00 Medical tablet 00 :00 [place] metoprolol 2020- No 25mg QD Take 25 mg [facility] tartrate 5-12 02-[address] (LOPRESSOR) 00:00: 00:00 daily. Hos imelda 50 MG 00 :00 l tablet CLOPIDOGREL Yes TAKE 1 Evert dora BISULFATE 1-08 TABLET BY l 75 MG TABS 10:35: MOUTH [place] n 00 DAILY NISOLDIPINE Yes TAKE 1 Evert dora ER 34 MG 1-08 TABLET BY l [id number] 10:35: MOUTH Jimmy 00 DAILY LOSARTAN Yes TAKE 1 Memoria POTASSIUM 1-08 TABLET BY l 100 MG TABS 10:35: MOUTH Mary nn 00 DAILY CYMBALTA 60 Yes TAKE 1 Evert dora MG CPEP 1-08 TABLET BY l 10:35: MOUTH Jimmy 00 DAILY PANTOPRAZOL Yes TAKE 1 Evert dora E SODIUM 40 1-08 TABLET BY l MG TBEC 10:35: MOUTH Jimmy 00 DAILY CLOPIDOGREL Yes TAKE 1 Evert dora BISULFATE 1-08 TABLET BY l 75 MG TABS 10:35: MOUTH [place] n 00 DAILY NISOLDIPINE Yes TAKE 1 Evert dora ER 34 MG 1-08 TABLET BY l [id number] 10:35: MOUTH Jimmy 00 DAILY LOSARTAN Yes TAKE 1 Memoria POTASSIUM 1-08 TABLET BY l 100 MG TABS 10:35: MOUTH Mary nn 00 DAILY CYMBALTA 60 Yes TAKE 1 Evert dora MG CPEP 1-08 TABLET BY l 10:35: MOUTH Jimmy 00 DAILY PANTOPRAZOL Yes TAKE 1 Evert dora E SODIUM 40 1-08 TABLET BY l MG TBEC 10:35: MOUTH [place] 00 DAILY WELCHOL Yes 2 packs Memoria [...] a MG TABS 1-08 daily l 00:00: [place] 00 PAPAYA Yes 2 tablet Mem[facility] ENZYME TABS 1-08 after main l 00:00: meals Jimmy 00 METOPROLOL Yes 2 tab AM & M emoria TARTRATE 50 1-08 1 tab PM l MG TABS 00:00: Jimmy 00 METOPROLOL 2012-02 Yes TAKE 1 Memor ia TARTRATE 50 2-13 TABLET BY l MG TABS 14:45: MOUTH Jimmy DAILY LOSARTAN 2012-02 Yes TAKE 1 Memoria POTASSIUM 2-13 TABLET BY l 100 MG TABS 14:45: MOUTH Mary nn DAILY WELCHOL 2012-02 Yes TAKE 1 Memoria 3.75 GM 2-13 TABLET BY l PACK 14:45: MOUTH [place] DAILY CYMBALTA 60 2012-02 Yes TAKE 1 Evert dora MG CPEP 2-13 TABLET BY l 14:45: MOUTH [place] DAILY PANTOPRAZOL 2012-02 Yes TAKE 1 Evert dora E SODIUM 40 2-13 TABLET BY l MG TBEC 14:45: MOUTH Jimmy DAILY METOPROLOL 2012-02 Yes TAKE 1 Memor ia TARTRATE 50 2-13 TABLET BY l MG TABS 14:45: MOUTH [place] DAILY LOSARTAN 2012-02 Yes TAKE 1 Memoria POTASSIUM 2-13 TABLET BY l 100 MG TABS 14:45: MOUTH Mary nn DAILY WELCHOL 2012-02 Yes TAKE 1 Memoria 3.75 GM 2-13 TABLET BY l PACK 14:45: MOUTH [place] DAILY CYMBALTA 60 2012-02 Yes TAKE 1 Evert dora MG CPEP 2-13 TABLET BY l 14:45: MOUTH Jimmy DAILY PANTOPRAZOL 2012-02 Yes TAKE 1 Evert dora E SODIUM 40 2-13 TABLET BY l MG TBEC 14:45: MOUTH Jimmy DAILY PLAVIX 75 2012-02 No TAKE 1 Memori a MG TABS 2-13 TABLET BY l 00:00: MOUTH [place] DAILY OCUVITE EYE 2012-02 Yes Memori a + MULTI 2-13 l TABS 00:00: 00 COQ10 CAPS 2012-02 Yes Memoria 2-13 l 00:00: 00 ASPIRIN 81 2012-02 Yes Memoria MG TABS 2-13 l 00:00: FLOMAX 0.4 2012-02 Yes one every Me moria MG CAPS 2-13 evening. l 00:00: [place] 00 LUNESTA 3 2012-02 Yes TAKE 1 Memori a MG TABS 2-13 TABLET BY l 00:00: MOUTH [place] 00 DAILY ESTA 3 2012-02 Yes TAKE 1 Memori a [...] a + MULTI 2-13 l TABS 00:00: [place] 00 COQ10 CAPS 2012-02 Yes Memoria 2-13 l 00:00: Jimmy 00 ASPIRIN 81 2012-02 Yes Memoria MG TABS 2-13 l 00:00: [place] 00 FLOMAX 0.4 2012-02 Yes one every Me moria MG CAPS 2-13 evening. l 00:00: Ros[place]ESTA 3 2012-02 Yes TAKE 1 Memori a MG TABS 2-13 TABLET BY l 00:00: MOUTH [place] DAILY ESTA 3 2012-02 Yes TAKE 1 Memori a MG TABS 2-13 TABLET BY l 00:00: MOUTH Jimmy DAILY FLOMAX 0.4 2012-02 No one every Me moria MG CAPS 2-13 evening. l 00:00: [place] 00 FLUTICASONE Yes 1 spray in Memoria [...] Date Status Commen ts Source Name Name [id number]-19mR 2020-07-04 Completed Evert rial NABNT-[id number] 00:00:00 Herm jennie MHJU-GrS-6ZEVUB-19mR 2020-07-04 Completed Evert rial NABNT-[id number] 00:00:00 Herm jennie JOMS-IjV-8BABYU-19mR 2020-07-04 Completed Evert rial NABNT-[id number] 00:00:00 Herm jennie TBOI-CnG-6HVVAV-19mR 2020-07-04 Completed Evert rial NABNT-[id number] 00:00:00 Herm jennie SPAR-BsG-2DYRRI-mR 2020-07-04 Completed Evert rial NABNT-[id number] 00:00:00 Herm jennie KKIF-QrH-2VELIJ-19mR 2020-06-09 Completed Evert rial NABNT-[id number] 00:00:00 Herm jennie ZKCU-AzZ-5GXHRN-19mR 2020-06-09 Completed Evert rial NABNT-[id number] 00:00:00 Herm jennie GYHF-OsM-8DPGCV-mR 2020-06-09 Completed Evert rial NABNT-[id number] 00:00:00 Herm jennie ZLSC-WoB-4OKHRJ-19mR 2020-06-09 Completed Evert rial NABNT-[id number] 00:00:00 Herm jennie QPVV-MbA-4YIPYQ-19mR 2020-06-09 Completed Evert rial NABNT-[id number] 00:00:00 Herm jennie influenza virus 2018-08-11 Completed [facility] vaccine, inactivated 00:00:00 Herm jennie influenza virus 2018-08-11 Completed [facility] vaccine, inactivated 00:00:00 Herm jennie influenza virus 2018-08-11 Completed [facility] vaccine, inactivated 00:00:00 Herm jennie influenza virus 2018-08-11 Completed [facility] vaccine, inactivated 00:00:00 Herm jennie influenza virus 2018-08-11 Completed [facility] vaccine, inactivated 00:00:00 Herm jennie influenza virus 2017-02-11 Completed [facility] vaccine, 00:00:00 Jimmy inactivated<sup>1</s up> influenza virus 2017-02-11 Completed [facility] vaccine, 00:00:00 [place] inactivated<sup>1</s up> influenza virus 2017-02-11 Completed [facility] vaccine, 00:00:00 Jimmy inactivated<sup>1</s up> influenza virus 2017-02-11 Completed [facility] vaccine, 00:00:00 Jimmy inactivated<sup>1</s up> influenza virus 2017-02-11 Completed [facility] vaccine, 00:00:00 [place] inactivated<sup>1</s up> influenza 2010-10-16 Completed [facility] immunization (Flu 14:23:57 Jimmy Vax) has been administered Hx influenza 2010-10-16 Completed [facility] vaccine-unspecified< 14:23:57 Herm jennie sup>2</sup> Hx influenza 2010-10-16 Completed [facility] vaccine-unspecified< 14:23:57 Herm jennie sup>2</sup> influenza 2010-10-16 Completed [facility] immunization (Flu 14:23:57 [place] Vax) has been administered Hx influenza 2010-10-16 Completed [facility] vaccine-unspecified< 14:23:57 Herm jennie sup>2</sup> Hx influenza 2010-10-16 Completed [facility] vaccine-unspecified< 14:23:57 Herm jennie sup>2</sup> Hx influenza 2010-10-16 Completed [facility] vaccine-unspecified< 14:23:57 Herm jennie sup>2</sup> pneumococcal 2007-06-14 Completed [facility] immunization 14:23:57 Jimmy administered pneumococcal 2007-06-14 Completed [facility] 23-valent 14:23:57 [place] vaccine<sup>3</sup> pneumococcal 2007-06-14 Completed [facility] 23-valent 14:23:57 Jimmy vaccine<sup>3</sup> pneumococcal 2007-06-14 Completed [facility] immunization 14:23:57 Jimmy administered pneumococcal 2007-06-14 Completed [facility] 23-valent 14:23:57 [place] vaccine<sup>3</sup> pneumococcal 2007-06-14 Completed [facility] 23-valent 14:23:57 Jimmy vaccine<sup>3</sup> pneumococcal 2007-06-14 Completed [facility] 23-valent 14:23:57 Jimmy vaccine<sup>3</sup> hepatitis B vaccine 2006-04-11 Completed Memor ial #3 15:23:57 [place] Hx hepatitis B 2006-04-11 Completed [facility] vaccine<sup>4</sup> 15:23:57 Mary nn Hx hepatitis B 2006-04-11 Completed [facility] vaccine<sup>4</sup> 15:23:57 Mary nn hepatitis B vaccine 2006-04-11 Completed Memor ial #3 15:23:57 Jimmy Hx hepatitis B 2006-04-11 Completed [facility] vaccine<sup>4</sup> 15:23:57 Mary nn Hx hepatitis B 2006-04-11 Completed [facility] vaccine<sup>4</sup> 15:23:57 Mary nn Hx hepatitis B 2006-04-11 Completed [facility] vaccine<sup>4</sup> 15:23:57 Mary nn chicken pox 2006-03-20 Completed [facility] immunization #1 15:23:57 Jimmy varicella virus 2006-03-20 Completed [facility] vaccine<sup>7</sup> 15:23:57 Mary nn varicella virus 2006-03-20 Completed [facility] vaccine<sup>7</sup> 15:23:57 Mary nn chicken pox 2006-03-20 Completed [facility] immunization #1 15:23:57 Jimmy varicella virus 2006-03-20 Completed [facility] vaccine<sup>7</sup> 15:23:57 Mary nn varicella virus 2006-03-20 Completed [facility] vaccine<sup>7</sup> 15:23:57 Mary nn varicella virus 2006-03-20 Completed [facility] vaccine<sup>7</sup> 15:23:57 Mary nn zoster vaccine 2006-03-20 Completed [facility] live<sup>8</sup> 06:00:00 Jimmy zoster vaccine 2006-03-20 Completed [facility] live<sup>8</sup> 06:00:00 Jimmy zoster vaccine 2006-03-20 Completed [facility] live<sup>8</sup> 06:00:00 Jimmy zoster vaccine 2006-03-20 Completed [facility] live<sup>8</sup> 06:00:00 Jimmy zoster vaccine 2006-03-20 Completed [facility] live<sup>8</sup> 06:00:00 [place] hepatitis B vaccine 2006-03-15 Completed Memor ial #2 given 15:23:57 [place] Hx hepatitis B 2006-03-15 Completed [facility] vaccine<sup>5</sup> 15:23:57 Mary nn Hx hepatitis B 2006-03-15 Completed [facility] vaccine<sup>5</sup> 15:23:57 Mary nn hepatitis B vaccine 2006-03-15 Completed Memor ial #2 given 15:23:57 Jimmy Hx hepatitis B 2006-03-15 Completed [facility] vaccine<sup>5</sup> 15:23:57 Mary nn Hx hepatitis B 2006-03-15 Completed [facility] vaccine<sup>5</sup> 15:23:57 Mary nn Hx hepatitis B 2006-03-15 Completed [facility] vaccine<sup>5</sup> 15:23:57 Mary nn MMR (measles, mumps, 2006-02-28 Completed Evert rial rubella) virus 15:23:57 Jimmy immunization #1 measles/mumps/rubell 2006-02-28 Completed Evert rial a virus 15:23:57 Jimmy vaccine<sup>9</sup> measles/mumps/rubell 2006-02-28 Completed Evert rial a virus 15:23:57 Jimmy vaccine<sup>9</sup> MMR (measles, mumps, 2006-02-28 Completed Evert rial rubella) virus 15:23:57 [place] immunization #1 measles/mumps/rubell 2006-02-28 Completed Evert rial a virus 15:23:57 [place] vaccine<sup>9</sup> measles/mumps/rubell 2006-02-28 Completed Evert rial a virus 15:23:57 Jimmy vaccine<sup>9</sup> measles/mumps/rubell 2006-02-28 Completed Evert rial a virus 15:23:57 [place] vaccine<sup>9</sup> hepatitis B vaccine 2006-02-25 Completed Memor ial #1 given 15:23:57 [place] Hx hepatitis B 2006-02-25 Completed [facility] vaccine<sup>6</sup> 15:23:57 Mary nn Hx hepatitis B 2006-02-25 Completed [facility] vaccine<sup>6</sup> 15:23:57 Amry nn hepatitis B vaccine 2006-02-25 Completed Memor ial #1 given 15:23:57 Jimmy Hx hepatitis B 2006-02-25 Completed [facility] vaccine<sup>6</sup> 15:23:57 Mary nn Hx hepatitis B 2006-02-25 Completed [facility] vaccine<sup>6</sup> 15:23:57 Mary nn Hx hepatitis B 2006-02-25 Completed [facility] vaccine<sup>6</sup> 15:23:57 Mary nn Vital Signs Vital Name Observation Time Observation Value Comments Source WEIGHT 2022-02-13 06:03:00 86.41 kg WEIGHT 2022-02-12 06:00:00 84.2 kg WEIGHT 2022-02-12 05:00:00 84.2 kg HEIGHT 2022-02-11 07:52:00 172.7 cm WEIGHT 2022-02-11 07:52:00 85.1 kg HEIGHT 2022-02-11 00:10:00 172.7 cm WEIGHT 2022-02-11 00:10:00 83.4 kg WEIGHT 2022-02-13 06:03:00 86.41 kg WEIGHT 2022-02-12 06:00:00 84.2 kg WEIGHT 2022-02-12 05:00:00 84.2 kg HEIGHT 2022-02-11 07:52:00 172.7 cm WEIGHT 2022-02-11 07:52:00 85.1 kg HEIGHT 2022-02-11 00:10:00 172.7 cm WEIGHT 2022-02-11 00:10:00 83.4 kg WEIGHT 2021-12-11 21:00:00 91 kg HEIGHT 2021-12-09 17:00:00 172.7 cm WEIGHT 2021-12-09 17:00:00 81.647 kg WEIGHT 2021-12-11 21:00:00 91 kg HEIGHT 2021-12-09 17:00:00 172.7 cm WEIGHT 2021-12-09 17:00:00 81.647 kg Systolic blood 2019-11-12 01:28:00 126 mm[Hg] Univer sity of pressure [facility] Diastolic blood 2019-11-12 01:28:00 63 mm[Hg] [facility]ive rs[facility] Heart rate 2019-11-12 01:28:00 84 /min [facility] Respiratory rate 2019-11-12 01:28:00 20 /min Univ ersity [facility] Oxygen saturation in 2019-11-12 01:28:00 100 /min [facility] Arterial blood by [facility] Pulse oximetry Branch Systolic blood 2019-11-12 01:00:00 142 mm[Hg] Univer sity of pressure [facility] Diastolic blood 2019-11-12 01:00:00 71 mm[Hg] Unive rsity of pressure [facility] Heart rate 2019-11-12 01:00:00 84 /min [facility] Respiratory rate 2019-11-12 01:00:00 14 /min [facility] Oxygen saturation in 2019-11-12 01:00:00 99 /min [facility] of Arterial blood by [facility] Pulse oximetry Branch Body temperature 2019-11-11 22:21:00 36.61 Pat [facility] Body weight 2019-11-11 22:21:00 85 kg [facility] Systolic blood 2019-11-12 01:28:00 126 mm[Hg] Univer sity of pressure [facility] Diastolic blood 2019-11-12 01:28:00 63 mm[Hg] Unive rsity of pressure [facility] Heart rate 2019-11-12 01:28:00 84 /min [facility] Respiratory rate 2019-11-12 01:28:00 20 /min [facility] Oxygen saturation in 2019-11-12 01:28:00 100 /min [facility] Arterial blood by [facility] Pulse oximetry Branch Systolic blood 2019-11-12 01:00:00 142 mm[Hg] Univer [facility]ity of pressure [facility] Diastolic blood 2019-11-12 01:00:00 71 mm[Hg] Unive rsity of pressure [facility] Heart rate 2019-11-12 01:00:00 84 /min [facility] Respiratory rate 2019-11-12 01:00:00 14 /min [facility] Oxygen saturation in 2019-11-12 01:00:00 99 /min [facility] Arterial blood by [facility] raman Pulse oximetry Branch Body temperature 2019-11-11 22:21:00 36.61 Pat [facility] Body weight 2019-11-11 22:21:00 85 kg [facility] [place] [facility] Heart rate 2022-02-13 12:00:00 64 /min [facility] Systolic blood 2022-02-13 11:30:00 141 mm[facility]Hg[facility] 2022-02-13 11:30:00 72 mm[Hg] [facility] Body temperature 2022-02-13 11:30:00 36.89 Pat [facility] Respiratory rate 2022-02-13 11:30:00 18 /min [facility] Oxygen saturation in 2022-02-13 11:30:00 92 /min [facility] Arterial blood by Medical Ce nter Pulse oximetry Body weight 2022-02-13 06:03:00 86.41 kg [facility] BMI 2022-02-13 06:03:00 28.97 kg/m2 [facility] Body height 2022-02-11 07:52:00 172.7 cm [facility] Heart Rate 2021-12-23 14:30:35 [facility] Temperature Oral (F) 2021-12-23 14:30:28 96.8 F [facility] Jimmy Systolic (mm Hg) 2021-12-23 14:30:01 Evert ria [place] Diastolic (mm Hg) 2021-12-23 14:30:01 Mem orial [place] Temperature Oral (F) 2021-12-17 17:00:00 96.9 F [facility] Jimmy Height 2021-12-16 10:50:00 5 [ft_i] [facility] Jimmy Weight 2021-12-16 10:50:00 [facility] Jimmy BMI Calculated 2021-12-16 10:50:00 [facility] Jimmy Systolic blood 2021-12-12 07:00:00 134 mm[Hg] [facility] Diastolic blood 2021-12-12 07:00:00 53 mm[Hg] [facility] Heart rate 2021-12-12 07:00:00 50 /min [facility] Body temperature 2021-12-12 07:00:00 36.67 Pat [facility] Respiratory rate 2021-12-12 07:00:00 18 /min [facility] Oxygen saturation in 2021-12-12 07:00:00 93 /min [facility] Arterial blood by Medical Ce nter Pulse oximetry Body weight 2021-12-11 21:00:00 91 kg [facility] BMI 2021-12-11 21:00:00 30.50 kg/m2 [facility] Body height 2021-12-09 17:00:00 172.7 cm [facility] Systolic blood 2021-06-15 17:41:09 176 mm[Hg] [facility] pressure Diastolic blood 2021-06-15 17:41:09 70 mm[facility]Hg[facility] pressure Heart rate 2021-06-15 17:41:09 70 /min [facility] Body temperature 2021-06-15 17:41:09 36.89 Pat [facility] Respiratory rate 2021-06-15 17:41:09 18 /min [facility] Oxygen saturation in 2021-06-15 17:41:09 97 /min [facility] Arterial blood by Pulse oximetry Body height 2021-06-12 21:25:[address] [facility] Body weight 2021-06-12 21:25:[address] [facility] BMI 2021-06-12 21:25:00 28.89 kg/m2 [facility] Body height 2020-04-27 20:44:[address] [facility] Body weight 2020-04-27 20:44:[address] [facility] BMI 2020-04-27 20:44:00 28.28 kg/m2 [facility] Systolic blood 2020-03-26 14:44:51 139 mm[Hg] [facility] pressure Diastolic blood 2020-03-26 14:44:51 66 mm[Hg] [facility] pressure Heart rate 2020-03-26 14:44:51 80 /min [facility] Body temperature 2020-03-26 14:44:51 36 Pat [facility] Respiratory rate 2020-03-26 14:44:51 19 /min [facility] Oxygen saturation in 2020-03-26 14:44:51 96 /min [facility] Arterial blood by Pulse oximetry Height 2014-02-18 15:55:42 [facility] Jimmy Weight 2014-02-18 15:55:42 [facility] Temperature Oral (F) 2014-02-18 15:55:[address] [facility] Heart Rate 2014-02-18 15:55:42 [facility] Systolic (mm Hg) 2014-02-18 15:55:42 Evert rial Jimmy Diastolic (mm Hg) 2014-02-18 15:55:42 Mem orial [place] Weight 2013-01-23 19:53:21 [facility] Jimmy Temperature Oral (F) 2013-01-23 19:53:21 97.6 F [facility] [place] Heart Rate 2013-01-23 19:53:21 [facility] [place] Height 2013-01-23 19:53:21 [facility] Jimmy Systolic (mm Hg) 2013-01-23 19:53:21 Evert rial [place] Diastolic (mm Hg) 2013-01-23 19:53:21 [facility] orial [place] Procedures Procedure Date / Time Performing Source Performed Clinician BASIC METABOLIC PANEL 2022-02-13 05:39:00 Narinder [facility] CBC (HEMOGRAM ONLY) 2022-02-13 05:39:00 Narinder [facility] MAGNESIUM 2022-02-13 05:39:00 [facility]inder [facility] LACTIC ACID, VENOUS 2022-02-13 05:39:00 Narinder, [facility] LACTIC ACID, VENOUS 2022-02-12 20:23:00 Narinder, [facility] HEMODIALYSIS INPATIENT 2022-02-12 15:11:[address] [facility] XR CHEST 1 VIEW PORTABLE 2022-02-12 12:44:00 Narinder [facility] / BEDSIDE Center LACTIC ACID, VENOUS 2022-02-12 12:19:00 Narinder [facility] HEPATITIS B SURFACE 2022-02-12 12:19:00 Narinder [facility] INSERTION, CARDIAC 2022-02-12 09:47:00 Narinder [facility] PACEMAKER, DUAL LEAD Center BASIC METABOLIC PANEL 2022-02-12 04:40:00 [facility]inder [facility] CBC (HEMOGRAM ONLY) 2022-02-12 04:40:00 Narinder, [facility] MAGNESIUM 2022-02-12 04:40[facility], VENOUS 2022-02-12 04:40:00 [facility] HC ARTERIAL DOPPLER LEG 2022-02-11 [facility] 2022-02-11 17:38:00 [facility] IRON, TIBC, % SAT. 2022-02-11 17:38:00 [facility] (WITHOUT FERRITIN) [facility] FERRITIN 2022-02-11 17:38:00 [facility] HEMOGLOBIN A1C 2022-02-11 17:38:00 [facility] XR CHEST 1 VIEW PORTABLE 2022-02-11 15:46:00 [facility] [place] LACTIC ACID, ARTERIAL 2022-02-11 15:39:00 [facility] BLOOD GAS, ARTERIAL 2022-02-11 15:37:00 [facility] CBC W/PLT COUNT & AUTO 2022-02-11 15:37:[address] [facility] DIFFERENTIAL [facility] BASIC METABOLIC PANEL 2022-02-11 15:37:00 [facility] MAGNESIUM 2022-02-11 15:37:00 [facility] PHOSPHORUS 2022-02-11 15:37:00 [facility] HIGH SENSITIVITY 2022-02-11 15:37:00 [facility] ED TROPONIN I [facility] B-TYPE NATRIURETIC 2022-02-11 15:37:00 [facility] FACTOR (BNP) [facility] CBC W/PLT COUNT & AUTO 2022-02-11 15:37:00 [facility] XR CHEST 1 VIEW PORTABLE 2022-02-11 12:17:00 Trae Daugherty [facility] / BEDSIDE [place] HIGH SENSITIVITY 2022-02-11 07:25:00 Latasha Hernandez [facility] TROPONIN I Center BASIC METABOLIC PANEL 2022-02-11 07:25:00 Siria Tran [facility] MAGNESIUM 2022-02-11 07:25:00 Siria Tran [facility] CBC W/PLT COUNT & AUTO 2022-02-11 07:25:00 Siria Tran [facility] DIFFERENTIAL Center CBC W/PLT COUNT & AUTO 2022-02-11 07:25:00 Siria Tran [facility] DIFFERENTIAL Center 2D ECHO W/ DOPPLER 2022-02-11 02:07:57 [facility] [place] XR CHEST 1 VIEW PORTABLE 2022-02-11 00:51:00 Latasha Hernandez [facility] / BEDSIDE Center BASIC METABOLIC PANEL 2022-02-10 23:52:00 Latasha Hernandez I [facility] HEPATIC FUNCTION PANEL 2022-02-10 23:52:00 Latasha Hernandez [facility] MAGNESIUM 2022-02-10 23:52:00 [facility] 2022-02-10 23:52:00 [facility] TSH[facility]FREE T4 IF INDICATED 2022-02-10 23:52:00 Latasha Hernandez [facility] HIGH SENSITIVITY 2022-02-10 23:52:[facility] B-TYPE NATRIURETIC 2022-02-10 23:52:00 [facility] Center CBC W/PLT COUNT & AUTO 2022-02-10 23:52:00 Latasha Hernandez [facility] DIFFERENTIAL Center CBC W/PLT COUNT & AUTO 2022-02-10 23:52:00 Latasha Hernandez [facility] ECG 12-LEAD 2022-02-10 23:02:12 Unknown, Hl7 Doctor [facility] ECG 12-LEAD 2022-02-10 23:02:12 Unknown, Hl7 Doctor [facility] ARRYTHMIA IMPLANT REPORT 2022-02-10 00:00:00 Provider, Default [facility] - SCAN Scanning Center CARDIAC CATH REPORT - 2022-02-10 00:00:00 Provider, Default [facility] SCAN Scanning Center EKG-SCANNED 2022-02-10 00:00:00 Provider, Default [facility] Scanning [place] Esophagogastroduodenosco 2021-12-18 14:07:00 [facility] py, flexible, transoral; diagnostic, including collection of specimen(s) by brushing or washing, when performed (separate procedure) CBC W/PLT COUNT & AUTO 2021-12-12 04:59:00 Donell [facility] BASIC METABOLIC PANEL 2021-12-12 04:59:00 [facility] CBC W/PLT COUNT & AUTO 2021-12-12 04:59:[address] [facility] HEMODIALYSIS INPATIENT 2021-12-11 21:00:00 Barak Pérez I [facility] ECG 12-LEAD 2021-12-11 15:07:30 Susan Pfeiffer [facility] ECG 12-LEAD 2021-12-11 15:07:30 Unknown, Hl7 Doctor [facility] CT ABDOMEN/PELVIS 2021-12-11 14:20:00 Donell [facility] WITHOUT IV CONTRAST Center CBC W/PLT COUNT & AUTO 2021-12-11 05:12:00 [facility] BASIC METABOLIC PANEL 2021-12-11 05:12:00 [facility] HEPATITIS B SURFACE 2021-12-11 05:12:00 Barak Pérez [facility] Center CBC W/PLT COUNT & AUTO 2021-12-11 05:12:[address] [facility] C-REACTIVE PROTEIN 2021-12-10 11:32:00 OnyirioEsmer patel [facility] [place] [facility] PHOSPHORUS 2021-12-10 11:32:00 Barak P[facility]rez [facility] SARS-COV2/RT-PCR ([facility] & 2021-12-10 10:07:00 Neeru Marley [facility] REF LABS) Center CBC W/PLT COUNT & AUTO 2021-12-10 04:26:00 Neeru Marley [facility] DIFFERENTIAL Center BASIC METABOLIC PANEL 2021-12-10 04:26:00 [facility] CBC W/PLT COUNT & AUTO 2021-12-10 04:26:00 DonellNeeru [facility] DIFFERENTIAL Center HEMOGLOBIN AND 2021-12-09 18:47:00 [facility] HEMATOCRIT Center TYPE AND SCREEN, 2021-12-09 18:47:00 DonellNeeru [facility] AUTOMATED Center XR CHEST 2 VW 2021-09-15 16:09:00 Requisition, Paper [facility] ASSIGNMENT OF BENEFITS 2021-09-15 15:42:19 [facility] HEMOGLOBIN & HEMATOCRIT 2021-06-15 14:45:00 Maddy Guo [facility] HEMODIALYSIS 2021-06-15 12:31:53 Johann Enriquez ospisean Reyaver CBC WITH PLATELET AND 2021-06-15 09:14:00 Daniel Rocha [facility] DIFFERENTIAL BASIC METABOLIC PANEL 2021-06-15 09:14:00 Daniel Rocha [facility] ESTIMATED GFR 2021-06-15 09:14:00 Daniel Rocha spisean ECG 12-LEAD 2021-06-14 18:49:23 Arsen Ureña [place] CBC WITH PLATELET AND 2021-06-13 23:02:00 Francesca Mac [facility] DIFFERENTIAL COVID-19 QUALITATIVE 2021-06-13 13:31:00 [facility] HEPATITIS B SURFACE 2021-06-13 12:37:00 Vandana [facility] ANTIGEN CBC WITH PLATELET AND 2021-06-13 09:33:00 [facility] DIFFERENTIAL [place] BASIC METABOLIC PANEL 2021-06-13 09:33:00 [facility] [place] MAGNESIUM LEVEL 2021-06-13 09:33:00 [place] [facility] PARTIAL THROMBOPLASTIN 2021-06-13 09:33:00 [facility] TIME (PTT) [place] TROPONIN T 2021-06-13 09:33:00 [place] [facility] spital [place] ESTIMATED GFR 2021-06-13 09:33:00 [place] [facility] TOTAL IRON BINDING 2021-06-13 09:33:00 [facility] CAPACITY [place] FERRITIN LEVEL 2021-06-13 09:33:00 [place] [facility] spital [place] CT ABDOMEN PELVIS WO 2021-06-13 05:03:23 Svetlana Cano [facility] CONTRAST ECG ED PRELIMINARY 2021-06-13 02:34:56 [facility] INTERPRETATION Arturo R. HEMODIALYSIS 2021-06-13 02:16:04 Vandana [facility] CBC WITH PLATELET AND 2021-06-12 22:50:00 [facility] DIFFERENTIAL Arturo R. PROTHROMBIN TIME WITH 2021-06-12 22:50:00 [facility] INR Arturo R. TYPE AND SCREEN 2021-06-12 22:50:00 [facility] che[facility]al Arturo R. COMPREHENSIVE METABOLIC 2021-06-12 22:50:00 [facility] PANEL Arturo R. LIPASE LEVEL 2021-06-12 22:50:00 Carissa Farnsworth spital Arturo R. ESTIMATED GFR 2021-06-12 22:50:00 [facility] Arturo R. ECG 12-LEAD 2021-06-12 21:49:24 [facility] chepetal Arturo R. [id number] 2020-05-24 00:00:00 GRANI [facility] [id number] 2020-05-20 00:00:00 GIBJE.01 [facility] [id number] 2020-05-20 00:00:00 GIBJE.01 [facility] [id number] 2020-05-20 00:00:00 GIBJE.01 [facility] [id number] 2020-05-20 00:00:00 SEEGE [facility] [id number] 2020-05-16 00:00:00 JUSTINO.03 [facility] [id number] 2020-05-14 00:00:00 JUSTINO.03 [facility] [id number] 2020-05-11 00:00:00 [facility] [id number] 2020-05-11 00:00:00 [facility] [id number] 2020-05-11 00:00:00 [facility] [id number] 2020-05-11 00:00:00 [facility] [id number] 2020-03-30 00:00:00 [facility] [id number] 2020-03-30 00:00:00 [facility] [id number] 2020-03-30 00:00:00 [facility] [id number] 2020-03-30 00:00:00 [facility] [id number] 2020-03-30 00:00:00 [facility] [id number] 2020-03-30 00:00:00 [facility] [id number] 2020-03-30 00:00:00 [facility] [id number] 2020-03-30 00:00:00 [facility] [id number] 2020-03-30 00:00:00 [facility] [id number] 2020-03-30 00:00:00 [facility] [id number] 2020-03-30 00:00:00 [facility] ypress [id number] 2020-03-30 00:00:00 [facility] [id number] 2020-03-30 00:00:00 [facility] [id number] 2020-03-30 00:00:00 [facility] [id number] 2020-03-30 00:00:00 [facility] [id number] 2020-03-30 00:00:00 [facility] [id number] 2020-03-30 00:00:00 [facility] [id number] 2020-03-30 00:00:00 [facility] [id number] 2020-03-30 00:00:00 [facility]press [id number] 2020-03-30 00:00:00 [facility]press [id number] 2020-03-30 00:00:00 [facility] ypress [id number] 2020-03-30 00:00:00 [facility]press HC COMPLETE BLD COUNT 2020-03-25 10:45:00 [facility]/AUTO DIFF Obi BASIC METABOLIC PANEL 2020-03-25 10:00:00 [facility] Obi ESTIMATED GFR 2020-03-25 10:00:00 Clint King spital Obi HEMODIALYSIS 2020-03-24 22:39:54 Maldonado Casper spital Deepak HC COMPLETE BLD COUNT 2020-03-24 11:00:00 [facility] W/AUTO DIFF Obi BASIC METABOLIC PANEL 2020-03-24 10:00:00 [facility] Obi ESTIMATED GFR 2020-03-24 10:00:00 Clint King spital Obi US CAROTID DUPLEX 2020-03-23 18:31:05 [facility] BILATERAL BASIC METABOLIC PANEL 2020-03-23 09:20:00 [facility] Obi HC COMPLETE BLD COUNT 2020-03-23 09:20:00 [facility] W/AUTO DIFF Obi ESTIMATED GFR 2020-03-23 09:20:00 [facility] POC GLUCOSE 2020-03-22 22:27:00 Clint King spital Obi HEMODIALYSIS 2020-03-22 22:13:20 Romy Woodson spital Tabitha ANAEROBIC CULTURE 2020-03-22 20:52:00 [facility] FUNGUS CULTURE 2020-03-22 20:52:00 Obi Kerr spital [employer] STAIN 2020-03-22 20:52:00 Obi Kerr spital AEROBIC CULTURE 2020-03-22 20:52:00 Obi Kerr spital FUNGUS SMEAR 2020-03-22 20:52:00 Usha Obipopeye Ferrer spital ANAEROBIC CULTURE 2020-03-22 20:50:00 [facility] FUNGUS CULTURE 2020-03-22 20:50:00 Obi Kerr spital [employer] STAIN 2020-03-22 20:50:00 Usha [facility]bi [facility] AEROBIC CULTURE 2020-03-22 20:50:00 Usha Obipopeye Ferrer spital GRAM STAIN 2020-03-22 20:50:00 Obi Kerr spital SURGICAL PATHOLOGY 2020-03-22 20:30:00 [facility] REQUEST Obi AF[employer] CULTURE 2020-03-22 19:52:00 Obi Kerr spital AF[employer] CULTURE 2020-03-22 19:50:00 Usha Obipopeye Ferrer spital OR [place] < 1 HOUR 2020-03-22 19:30:00 Obi Kerr spital [place] AN ELECTIVE 2020-03-22 19:25:28 Tejal Simpson H ospital ENDOTRACHEAL AIRWAY AMPUTATION, ABOVE KNEE 2020-03-22 18:47:00 Obi Kerr [facility] POC GLUCOSE 2020-03-22 15:07:00 Clint King spital Obi HC COMPLETE BLD COUNT 2020-03-22 12:45:00 Carlos Nelson [facility] W/AUTO DIFF TYPE AND SCREEN 2020-03-22 12:45:00 Carlos Nelson Ho spital VANCOMYCIN LEVEL, RANDOM 2020-03-22 10:00:00 [facility] BASIC METABOLIC PANEL 2020-03-22 10:00:00 Clint King [facility] Obi ESTIMATED GFR 2020-03-22 10:00:00 Clint King spital Obi LIPID PANEL 2020-03-22 10:00:00 Bear Mariee Ho spital HEPATITIS B SURFACE 2020-03-21 14:22:00 [facility] ANTIGEN PROTHROMBIN TIME WITH 2020-03-21 12:15:00 [facility] INR PARTIAL THROMBOPLASTIN 2020-03-21 12:15:00 [facility] TIME (PTT) BASIC METABOLIC PANEL 2020-03-21 12:15:00 [facility] CBC WITH PLATELET AND 2020-03-21 12:15:00 [facility] DIFFERENTIAL VANCOMYCIN LEVEL, RANDOM 2020-03-21 12:15:00 [facility] ESTIMATED GFR 2020-03-21 12:15:00 [facility] HEMODIALYSIS 2020-03-21 06:05:17 Kumar Ayala H ospital VANCOMYCIN LEVEL, RANDOM 2020-03-20 20:54:00 [facility] BASIC METABOLIC PANEL 2020-03-20 11:30:00 Clint King [facility] Obi ESTIMATED GFR 2020-03-20 11:30:00 lCint King spital Obi TTE COMPLETE, W 2020-03-19 18:00:00 Svetlana Martinez spital CONTRAST, W DOPPLER [place] ([id number]) HC COMPLETE BLD COUNT 2020-03-19 10:14:00 Brooklynn Horner [facility] W/AUTO DIFF MRI KNEE WO CONTRAST 2020-03-19 09:38:00 [facility] RIGHT [place] MRI THIGH WO CONTRAST 2020-03-19 08:52:00 [facility] RIGHT Ryan MRI LOWER EXTREMITY WO 2020-03-19 08:07:00 [facility] CONTRAST RIGHT [place] BASIC METABOLIC PANEL 2020-03-19 07:01:00 [facility] ESTIMATED GFR 2020-03-19 07:01:00 [facility] spital LACTIC ACID LEVEL 2020-03-19 07:01:00 [facility] LACTIC ACID LEVEL, 2020-03-19 01:46:00 [facility] SEPSIS - NOW AND REPEAT [place] 2X EVERY 3 HOURS BLOOD CULTURE, AEROBIC & 2020-03-18 23:22:00 [facility] ANAEROBIC [place] COVID-19 QUALITATIVE 2020-03-18 23:22:00 [facility] RT-PCR [place] BLOOD CULTURE, AEROBIC & 2020-03-18 23:16:00 [facility] ANAEROBIC [place] HC COMPLETE BLD COUNT 2020-03-18 23:16:00 [facility] W/AUTO DIFF [place] PROTHROMBIN TIME WITH 2020-03-18 23:16:00 [facility] INR [place] PARTIAL THROMBOPLASTIN 2020-03-18 23:16:00 [facility] TIME (PTT) [place] TYPE AND SCREEN 2020-03-18 23:16:00 [facility] spital [place] COMPREHENSIVE METABOLIC 2020-03-18 23:16:00 [facility] PANEL [place] LACTIC ACID LEVEL, 2020-03-18 23:16:00 [facility] SEPSIS - NOW AND REPEAT [place] 2X EVERY 3 HOURS C-REACTIVE PROTEIN 2020-03-18 23:16:00 [facility] [place] SEDIMENTATION RATE 2020-03-18 23:16:00 [facility] [place] ESTIMATED GFR 2020-03-18 23:16:00 [facility] [place] URINE CULTURE 2020-03-18 23:10:00 Fer [facility]isl[facility] [place] URINALYSIS SCREEN AND 2020-03-18 23:10:00 [facility], WITH REFLEX [place] TO CULTURE XR KNEE 1 OR 2 VW RIGHT 2020-03-18 23:03:39 [facility] [place] XR TIBIA FIBULA 2 VW 2020-03-18 23:03:04 [facility] RIGHT [place] URINALYSIS 2019-11-11 23:48:00 Wanda Pickens [facility] XR CHEST 1 VW 2019-11-11 23:02:37 Wanda Pickens [facility] MAGNESIUM 2019-11-11 22:43:00 [facility] COMP. METABOLIC PANEL 2019-11-11 22:43:00 Wanda Pickens [facility] ([id number]) [facility] CBC WITH DIFF 2019-11-11 22:43:[address] [facility] TROPONIN I 2019-11-11 22:43:[address] [facility] EKG-12 LEAD 2019-11-11 22:40:13 [facility] Colonoscopy 2013-02-11 06:00:00 [facility] Placement of stent 2010-01-13 06:00:00 [facility] Procedure on [facility] knee<sup>5</sup> Complete resection of [facility] ermann colon<sup>2</sup> [facility] hand<sup>3</sup> Bilateral replacement of Memoria l Jimmy knee joints<sup>1</sup> Manual repair of hernia [facility] Ros[place] Procedure on [facility] [place] kidney<sup>4</sup> Plan of Care Planned Activity Planned Date Details Comments Source Future Scheduled 2023-02-[address] [facility] Test 00:00[facility]00 [facility] (12+) [code = Tobacco Cessation Counseling and Screening (12+)] Future Scheduled 2022-08-10 65+ [facility]OCOCCAL [facility] Test 07:41:32 VACCINE (1 - PCV) [code = 65+ PNEUMOCOCCAL VACCINE (1 - PCV)] Future Scheduled 2022-08-10 SHINGLES VACCINES (1 Met [facility] Hospital Test 07:41:32 of 2) [code = SHINGLES VACCINES (1 of 2)] Future Scheduled 2022-08-10 COVID-19 VACCINE (3 - [facility] Test 07:41:32 Pfizer series) [code = COVID-19 VACCINE (3 - Pfizer series)] Future Scheduled 2022-08-10 INFLUENZA VACCINE Method is Hospital Test 07:41:32 [code = INFLUENZA VACCINE] Future Scheduled 2022-02-11 FALLS RISK SCREENING [facility] Test 00:00:00 [code = FALLS RISK Medical C enter SCREENING] Future Scheduled 2022-01-22 65+ PNEUMOCOCCAL [facility] Test 16:36:00 VACCINE (1 - PCV) [code = 65+ PNEUMOCOCCAL VACCINE (1 - PCV)] Future Scheduled 2022-01-22 SHINGLES VACCINES (1 [facility] Hospital Test 16:36:00 of 2) [code = SHINGLES VACCINES (1 of 2)] Future Scheduled 2022-01-[address] [facility] Test 16:36:00 [code = COLONOSCOPY SCREENING] Future Scheduled 2022-01-22 COVID-19 VACCINE (3 - [facility] Test 16:36:00 Booster for Pfizer series) [code = COVID-19 VACCINE (3 - Booster for Pfizer series)] Future Scheduled 2022-01-22 INFLUENZA VACCINE Method ist Hospital Test 16:36:00 [code = INFLUENZA VACCINE] Future Scheduled 2022-01-22 65+ PNEUMOCOCCAL [facility] Test 16:36:00 VACCINE (1 - PCV) [code = 65+ PNEUMOCOCCAL VACCINE (1 - PCV)] Future Scheduled 2022-01-22 SHINGLES VACCINES (1 [facility] Hospital Test 16:36:00 of 2) [code = SHINGLES VACCINES (1 of 2)] Future Scheduled 2022-01-[address] [facility] Test 16:36:00 [code = COLONOSCOPY SCREENING] Future Scheduled 2022-01-22 COVID-19 VACCINE (3 - [facility] Hospital Test 16:36:00 Booster for Pfizer series) [code = COVID-19 VACCINE (3 - Booster for Pfizer series)] Future Scheduled 2022-01-22 INFLUENZA VACCINE Method [facility] Test 16:36:00 [code = INFLUENZA VACCINE] Future Scheduled 2022-01-22 65+ PNEUMOCOCCAL [facility] Test 16:36:00 VACCINE (1 - PCV) [code = 65+ PNEUMOCOCCAL VACCINE (1 - PCV)] Future Scheduled 2022-01-22 SHINGLES VACCINES (1 Met [facility] Test 16:36:00 of 2) [code = SHINGLES VACCINES (1 of 2)] Future Scheduled 2022-01-22 COLONOSCOPY SCREENING Me [facility] Test 16:36:00 [code = COLONOSCOPY SCREENING] Future Scheduled 2022-01-22 COVID-19 VACCINE (3 - Me [facility] Test 16:36:00 Booster for Pfizer series) [code = COVID-19 VACCINE (3 - Booster for Pfizer series)] Future Scheduled 2022-01-22 INFLUENZA VACCINE Method [facility] Test 16:36:00 [code = INFLUENZA VACCINE] Future Scheduled 2021-12-15 HEPATITIS B VACCINES Met [facility] Test 11:14:19 (1 of 3 - 3-dose series) [code = HEPATITIS B VACCINES (1 of 3 - 3-dose series)] Future Scheduled 2021-12-15 65+ [facility]AL [facility] Test 11:14:19 VACCINE (1 - PCV) [code = 65+ PNEUMOCOCCAL VACCINE (1 - PCV)] Future Scheduled 2021-12-15 SHINGLES VACCINES (1 [facility] Hospital Test 11:14:19 of 2) [code = SHINGLES VACCINES (1 of 2)] Future Scheduled 2021-12-[address] [facility] Test 11:14:19 [code = COLONOSCOPY SCREENING] Future Scheduled 2021-12-15 COVID-19 VACCINE (3 - [facility] Test 11:14:19 Booster for Pfizer series) [code = COVID-19 VACCINE (3 - Booster for Pfizer series)] Future Scheduled 2021-12-15 INFLUENZA VACCINE Method [facility] Test 11:14:19 [code = INFLUENZA VACCINE] Future Scheduled 2021-12-15 HEPATITIS B VACCINES Met [facility] Test 11:14:19 (1 of 3 - 3-dose series) [code = HEPATITIS B VACCINES (1 of 3 - 3-dose series)] Future Scheduled 2021-12-15 65+ PNEUMOCOCCAL [facility] Hospital Test 11:14:19 VACCINE (1 - PCV) [code = 65+ PNEUMOCOCCAL VACCINE (1 - PCV)] Future Scheduled 2021-12-15 SHINGLES VACCINES (1 Met [facility] Test 11:14:19 of 2) [code = SHINGLES VACCINES (1 of 2)] Future Scheduled 2021-12-[address] [facility] Test 11:14:19 [code = COLONOSCOPY SCREENING] Future Scheduled 2021-12-15 COVID-19 VACCINE (3 - Me [facility] Test 11:14:19 Booster for Pfizer series) [code = COVID-19 VACCINE (3 - Booster for Pfizer series)] Future Scheduled 2021-12-15 INFLUENZA VACCINE Method [facility] Test 11:14:19 [code = INFLUENZA VACCINE] Future Scheduled 2021-12-15 HEPATITIS B VACCINES Met [facility] Test 11:14:19 (1 of 3 - 3-dose series) [code = HEPATITIS B VACCINES (1 of 3 - 3-dose series)] Future Scheduled 2021-12-15 65+ [facility]CCAL [facility] Test 11:14:19 VACCINE (1 - PCV) [code = 65+ PNEUMOCOCCAL VACCINE (1 - PCV)] Future Scheduled 2021-12-15 SHINGLES VACCINES (1 Met [facility] Test 11:14:19 of 2) [code = SHINGLES VACCINES (1 of 2)] Future Scheduled 2021-12-[address] [facility] Test 11:14:19 [code = COLONOSCOPY SCREENING] Future Scheduled 2021-12-15 COVID-19 VACCINE (3 - Me [facility] Test 11:14:19 Booster for Pfizer series) [code = COVID-19 VACCINE (3 - Booster for Pfizer series)] Future Scheduled 2021-12-15 INFLUENZA VACCINE Method is Hospital Test 11:14:19 [code = INFLUENZA VACCINE] Future Scheduled 2021-10-27 HEPATITIS B VACCINES Met [facility] Test 04:11:20 (1 of 3 - 3-dose series) [code = HEPATITIS B VACCINES (1 of 3 - 3-dose series)] Future Scheduled 2021-10-27 65+ PNEUMOCOCCAL Methodi [facility] Test 04:11:20 VACCINE (1 - PCV) [code = 65+ PNEUMOCOCCAL VACCINE (1 - PCV)] Future Scheduled 2021-10-27 SHINGLES VACCINES (1 Met [facility] Hospital Test 04:11:20 of 2) [code = SHINGLES VACCINES (1 of 2)] Future Scheduled 2021-10-[address] [facility] Test 04:11:20 [code = COLONOSCOPY SCREENING] Future Scheduled 2021-10-27 COVID-19 VACCINE (3 - [facility] Hospital Test 04:11:20 Booster for Pfizer series) [code = COVID-19 VACCINE (3 - Booster for Pfizer series)] Future Scheduled 2021-10-27 INFLUENZA VACCINE Method ist Hospital Test 04:11:20 [code = INFLUENZA VACCINE] Future Scheduled 2021-10-12 INFLUENZA VACCINE (#1) C [...] Medical Ce nter VACCINE (#1)] Future Scheduled 2021-02-11 FALLS RISK SCREENING [facility] [...] IPPE)] Future Scheduled 1995-11-10 SHINGLES VACCINES ([address] [facility] Test 00:00:00 of 2) [code = SHINGLES Medic al Center VACCINES (1 of 2)] Future Scheduled 1995-11-10 SHINGLES VACCINES ([address] [facility] Test 00:00:00 of 2) [code = SHINGLES Medic al Center VACCINES (1 of 2)] Future Scheduled 1995-11-10 SHINGLES VACCINES ([address] [facility] Test 00:00:00 of 2) [code = SHINGLES Medic al Center VACCINES (1 of 2)] Future Scheduled 1995-11-10 SHINGLES VACCINES ([address] [facility] Test 00:00:00 of 2) [code = SHINGLES Medic al Center VACCINES (1 of 2)] Future Scheduled 1995-11-10 SHINGLES VACCINES ([address] [facility] Test 00:00:00 of 2) [code = SHINGLES Medic al Center VACCINES (1 of 2)] Future Scheduled 1995-11-10 SHINGLES VACCINES ([address] [facility] Test 00:00:00 of 2) [code = SHINGLES [facility] (1 of 2)] Future Scheduled 1995-11-10 SHINGLES VACCINES ([address] [facility] Test 00:00:00 of 2) [code = SHINGLES [facility] VACCINES (1 of 2)] Future Scheduled [...] (12+)] Future Scheduled 1951-11-10 PNEUMOCOCCAL 65+ YRS [facility] Test 00:00:00 (1 - PCV) [code = Medical Ce nter PNEUMOCOCCAL 65+ YRS (1 - PCV)] Future Scheduled 1951-11-10 PNEUMOCOCCAL 65+ YRS [facility] Test 00:00:00 (1 - PCV) [code = Medical Ce nter PNEUMOCOCCAL 65+ YRS (1 - PCV)] Future Scheduled 1951-11-10 PNEUMOCOCCAL 65+ YRS [facility] Test 00:00:00 (1 - PCV) [code = Medical Ce nter PNEUMOCOCCAL 65+ YRS (1 - PCV)] Future Scheduled 1951-11-10 PNEUMOCOCCAL 65+ YRS [facility] Test 00:00:00 (1 - PCV) [code = Medical Ce nter PNEUMOCOCCAL 65+ YRS (1 - PCV)] Future Scheduled 1951-11-10 PNEUMOCOCCAL 65+ YRS [facility] Test 00:00:00 (1 - PCV) [code = Medical Ce nter PNEUMOCOCCAL 65+ YRS (1 - PCV)] Future Scheduled 1951-11-10 PNEUMOCOCCAL 65+ YRS [facility] Test 00:00:00 (1 - PCV) [code = Medical Ce nter PNEUMOCOCCAL 65+ YRS (1 - PCV)] Future Scheduled 1951-11-10 PNEUMOCOCCAL 65+ YRS [facility] Test 00:00:00 (1 - PCV) [code = Medical Ce nter PNEUMOCOCCAL 65+ YRS (1 - PCV)] Future [...] (#1)] Future Scheduled 65+ [facility] VACCINE (1 of 4 - PCV13) [code = 65+ PNEUMOCOCCAL VACCINE (1 of 4 - PCV13)] Future Scheduled DIABETES: RETINAL EYE [facility] EXAM [code = DIABETES: RETINAL EYE EXAM] Future Sched[facility] [code = DIABETIC FOOT EXAM] Future Scheduled COVID-19 [facility]ACCINE (1[facility] [code = COVID-19 VACCINE (1)] Future Scheduled COLONOSCOPY SCREENING [facility] [code = COLONOSCOPY SCREENING] Future Scheduled SHINGLES VACCINES (#[facility]) [facility] [code = SHINGLES VACCINES (#1)] Future Scheduled [facility] [code = INFLUENZA VACCINE] Encounters Start End Encounter Admission Attending Care Care Encounter Source Date/Time Date/Time Type Type Clinicians Facility Department ID 2021-03-09 Outpatient 3 [id number] ENCPL BIT [facility] 11:54:[facility] [place] 2021-03-09 Outpatient 3 [id number] ENC[facility] REF [facility] 11:53:41 0406 [facility] [place] 2021-03-09 Outpatient 3 [id number] ENCPL REF [facility] 11:50:56 0329 [facility] [place] 2021-03-09 Outpatient 3 MICHELLE DIAZ AML [id number] [facility] 11:34:54 IGNAZIO 15542 [facility] [place] 2021-03-09 Outpatient 3 [id number] ENCPL REF [id number] [facility] 11:33:20 0212 [facility] [place] 2021-03-09 Outpatient 3 [id number] ENCPL REF [id number] [facility] 11:32:52 0211 [facility] [place] 2021-03-09 Outpatient 3 [id number] ENCPL REF [id number] [facility] 11:32:32 0210 [facility] [place] 2020 Outpatient Provider, HCAPM HCAPM [id number] [facility] 10:29:00 Undefined 34 [facility] [place] 2020-06-07 Inpatient UR Kirsten, HCACL HCACL [id number] [facility] 18:10:16 Sekou 19 [facility] 2020-05-16 Inpatient HCACL HCACL [id number] [facility] 06:04:26 61 [facility] 2020-03-26 Inpatient 3 Keegan, ENCPL AML [id number] [facility] 12:00:00 Chaya 0213 [facility] [place] 2022-02-10 2022-02-13 Inpatient ER ALEKS CHOU [facility] Cardiac ICU [id number] [facility] 22:48:00 13:01:00 2022-02-10 2022-02-13 Hospital ER José Luis Zaman [facility] [id number] [facility] 22:48:00 13:01:00 Encounter Rachele Zaman [facility] 2022-02-12 2022-02-12 Surgery Narinder, [facility] [id number] 09:50:00 12:54:00 [facility] 2022-02-11 2022-02-11 Travel [facility] [id number] [facility] 00[facility]00 [facility] 2022-02-10 2022-02-10 Orders [facility] [id number] 00:00:00 00:00:00 Only [facility] 2021-12-16 2021-12-23 Inpatient [facility] access hospital [id number] Mem[facility] 10:37:00 19:27:00 cindy Marquez [address] [place] [address] 2021-12-16 2021-12-23 Inpatient Critical access hospital [id number] [facility] 10:37:00 19:27:00 cindy Marquez [address] [place] [address] 2021-12-16 2021-12-23 Inpatient SOLAGUILAR, [facility] 2309 [facility] 05:37:00 13:27:00 VESTA 2021-12-16 2021-12-23 Outpatient Solelicia, [facility] [id number] 05:37:00 13:27:00 Vesta Roberto Carlos Mccracken 2021-12-18 2021-12-18 Outpatient [facility] [id number] [place] 13:00:00 13:00:00 Health 2021-12-09 2021-12-[address] [facility] [id number] SLE 16:00:00 10:59:00 [facility] 2021-12-09 2021-12-12 Hospital ER [facility] [id number] 16:00:00 10:59:00 Encounter [facility] 2021-12-11 2021-12-11 Orders [facility] [id number] 00:00:00 00:00:00 Only [facility] 2021-12-09 2021-12-09 Travel [facility] [id number] [facility] 00:[facility] 00:[facility]:00 [facility] 2021-12-09 2021-12-09 [id number] 00:00:00 00:00:00 [facility] 2021-09-15 2021-09-15 Outpatient R RADIOLOGY [facility] [id number] Univers 10:45:54 23:59:00 [facility]y of [facility] 2021-09-15 2021-09-15 Hospital Radiology [facility] 1.2.840.114 [id number] Univers 10:45:00 23:59:00 Encounter ZAYDA 350.1.13.10 ity [facility] 4.2.7.2.686 [facility] [id number] [address] 2021-09-15 2021-09-15 Orders Doctor NEGRETE 1.2.840.114 [id number] Univers 00:00:00 00:00:00 Only Unassigned, ROSE MARY 350.1.13.10 ity of [place] [facility] 4.2.7.2.686 [place] as [id number] [place] [address] [place] 2021-08-09 2021-08-09 Telemedici Brant, 1.2.840.1 [id number] Methodi 13:00:00 13:08:06 ne Maddy 08695.1.[address] 3.430.2.7 Hospit a .3.433884 l .8 2021-06-12 2021-06-15 [facility] Arturo FarnsworthMarva 1.2.84 0.1 [id number] Methodi 16:33:00 15:42:00 Encounter CanoSvetlana rahman 84436.1.[address] Daniel Rocha 3.430.2.7 Ho spita .3.612558 l .8 2021-03-29 2021-03-29 Telephone Jaime, 1.2.840.7 [id number] Methodi 00:00:00 00:00:[address] 3.430.2.7 Hospit a .3.505784 l .8 2020-12-28 2020-12-29 Between nullFlavo [facility] [id number] Memoria 15:37:08 15:37:08 Visit r Primary 02 [facility] 2020-12-28 2020-12-29 Between nullFlavo [facility] [id number] Memoria 15:37:08 15:37:08 Visit r Primary 02 [facility] 2020-12-28 2020-12-29 Outpatient [facility] [id number] 09:37:08 09:37:08 02 2020-12-08 2020-12-09 Between nullFlavo [facility] [id number] Memoria 16:48:14 16:48:14 Visit r Primary 01 [facility] 2020-12-08 2020-12-09 Between nullFlavo [facility] [id number] Memoria 16:48:14 16:48:14 Visit r Primary 01 [facility] 2020-12-08 2020-12-09 Outpatient [facility] [id number] 11:48:14 11:48:14 2020-12-07 2020-12-07 Outpatient MARVA, [facility] [id number] [place] 00:00:00 00:00:00 MADDY [address] 2020-11-11 2020-11-13 Phone nullFlavo MG [id number] Memoria 15:40:54 04:59:59 Message r Primary 00 l Care [facility] 2020-11-11 2020-11-13 Phone nullFlavo MG [id number] Memoria 15:40:54 04:59:59 Message r Primary 00 l Care [facility] 2020-11-11 2020-11-12 Outpatient [facility] [id number] 10:40:54 23:59:59 2020-10-01 2020-10-06 Inpatient [facility] 012 [id number] [place] 00:00:00 00:00:00 SANDRA [address] 2020-05-13 2020-05-13 Outpatient TORI, [facility] HCAPM [id number] [facility] 01:23:22 01:23:[address] [place] [address] 2020-04-27 2020-04-27 Telemedici Uhsa Obi 1.2.840.1 [id number] Methodi 15:36:30 16:10:[address] 3.430.2.7 Hospit a .3.870725 l .8 2020-04-27 2020-04-27 Travel 1.2.840.1 1.2.000.111 9639 [id number] Methodi 00:00:00 00:00:[address] 3.430.2.7 0.2.7.3.698 Ho spita .3.989941 084.8 l .8 2020-04-26 2020-04-26 Travel 1.2.840.1 1.2.943.848 2147 [id number] Methodi 00:00:00 00:00:[address] 3.430.2.7 0.2.7.3.698 Ho spita .3.404389 084.8 l .8 2020-04-13 2020-04-18 [facility] 1.2.840.1 [id number] Methodi 11:45:02 00:23:05 Visit Archie 30088.1.[address] 3.430.2.7 Hospit a .3.842283 l .8 2020-04-13 2020-04-13 Travel 1.2.840.1 1.2.299.273 4377 [id number] Methodi 00:00:00 00:00:[address] 3.430.2.7 0.2.7.3.698 Ho spita .3.616795 084.8 l .8 2020-04-05 2020-04-05 [facility] Sugar 1.2.840.1 [id number] Methodi 00:00:00 00:00:[address] 3.430.2.7 Hospit a .3.438084 l .8 2020-04-04 2020-04-04 [facility] 1.2.840.1 [id number] Methodi 13:34:38 14:35:21 Visit Archie 26807.1.[address] 3.430.2.7 Hospit a .3.776060 l .8 2020-04-04 2020-04-04 Travel 1.2.840.1 1.2.444.971 0183 [id number] Methodi 00:00:00 00:00:[address] 3.430.2.7 0.2.7.3.698 Ho spita .3.985942 084.8 l .8 2020-04-01 2020-04-01 Orders Sugar 1.2.840.1 [id number] [id number] Methodi 00:00:00 00:00:00 Only Emilee [address]4735.1.[address] 3.430.2.7 Hospit a .3.761482 l .8 2020-04-01 2020-04-01 Travel 1.2.840.1 1.2.122.334 1287 [id number] Methodi 00:00:00 00:00:[address] 3.430.2.7 0.2.7.3.698 Ho spita .3.666911 084.8 l .8 2020-03-18 2020-03-26 [facility] 1.2.840 .1 [id number] Methodi 15:51:00 11:35:00 Encounter Clint King 66449.1.[address] Dickson, Umar 3.430.2.7 Hos imelda .3.962521 l .8 2020-03-22 2020-03-22 Anesthesia Liu Mccloud 1.2.840.1 [id number] Methodi 12:47:00 16:31:00 Event Clint Graham 05174.1.[address] 3.430.2.7 Hospit a .3.094075 l .8 2020-03-22 2020-03-22 Surgery Obi Kerr 1.2.840.1 [id number] [id number] Methodi 12:53:00 14:38:[address] 3.430.2.7 Hospit a .3.879849 l .8 2019-11-19 2019-11-19 Office CHELSEA York 1.2.840.114 [id number] 10:50:53 15:23:52 Visit Oswald Jay AMBULATOR 350.1.13.21 Y 0.2.7.2.686 [id number] 300 2019-11-11 2019-11-11 Emergency Wanda Pickens [facility] 1.2.840.114 [id number] 17:16:00 22:21:00 Lisa Pineda 350.1.13.10 Katie 4.2.7.2.686 Shanks [id number] [facility] 2019-11-11 2019-11-11 Emergency Wanda Pickens [facility] 1.2.840.114 [id number] Univers 17:16:00 22:21:00 Lisa Pineda 350.1.13.10 i ty graciela Wilson 4.2.7.2.686 [facility] [id number] [place] [address] [place] 2019-11-11 2019-11-11 Emergency X Wanda PICKENS [facility] ERT [id number] Univers 17:16:00 17:16:00 ity of [facility] 2019-11-03 2019-11-03 Telephone Melany, 1.2.840.1 [id number] Methodi 09:01:34 09:25:16 Consult Liss Baxter 74074.1.[address] 3.430.2.7 Hospit a .3.224667 l .8 2014-02-18 2014-02-18 Office Critical access hospital [id number] Memoria 00:00:00 00:00:00 Visit cindy Marquez [id number] [facility] 2014-02-18 2014-02-18 Lab Report Critical access hospital [id number] [id number] Memoria 00:00:00 00:00:00 cindy Marquez [id number] madhu [facility] 2013-01-23 2013-01-23 Lab Report Critical access hospital 1702 [id number] Memoria 00:00:00 00:00:00 cindy Marquez 782124 [facility] Results Test Description Test Time Test Comments Results Result Comments Source BASIC METABOLIC PANEL 2022-02-13 06:43:47 Test Item Value Reference Range Interpretation Comme nts SODIUM (BEAKER) (test 136 meq/L 136-145 code = 381) POTASSIUM (BEAKER) 4.5 meq/L 3.5-5.1 (test code = 379) CHLORIDE (BEAKER) (test 102 meq/L 98-107 code = 382) CO2 (BEAKER) (test code 24 meq/L 22-29 = 355) BLOOD UREA NITROGEN 27 mg/dL 7-21 H (BEAKER) (test code = 354) CREATININE (BEAKER) 2.93 mg/dL 0.57-1.25 H (test code = 358) GLUCOSE RANDOM (BEAKER) 74 mg/dL 70-105 (test code = 652) CALCIUM (BEAKER) (test 8.8 mg/dL 8.4-10.2 code = 697) EGFR (BEAKER) (test 22 mL/min/1.73 sq In terpretation of eGFR values [...] s not applicable for dialysis zia dang Ase Master Mechanic ID - [id number] 06:43:12 Test Item Value Reference Range Interpretation Comments MAGNESIUM (BEAKER) (test code = 2.2 mg/dL 1.6-2.6 627) Ase Master Mechanic ID - BSLACTIC ACID, [id number] 06:05:21 Test Item Value Reference Range Interpretation Comments LACTATE BLOOD VENOUS (2) (BEAKER) 1.00 mmol/L 0.50-2.20 (test code = 2872) Ase Master Mechanic ID - MARCOCBC (HEMOGRAM ONLY)2022-02-13 05:56:56 Test Item Value Reference Range Interpretation Comments WHITE BLOOD CELL COUNT (BEAKER) 9.0 K/ L 3.5-10.5 (test code = 775) RED BLOOD CELL COUNT (BEAKER) 4.17 M/ L 4.63-6.08 L (test code = 761) HEMOGLOBIN (BEAKER) (test code = 11.8 GM/DL 13.7-17.5 L 410) HEMATOCRIT (BEAKER) (test code = 38.6 % 40.1-51.0 L 411) MEAN CORPUSCULAR VOLUME (BEAKER) 93 fL 79-92 H (test code = 753) MEAN CORPUSCULAR HEMOGLOBIN 28.3 pg 25.7-32.2 (BEAKER) (test code = 751) MEAN CORPUSCULAR HEMOGLOBIN CONC 30.6 GM/DL 32.3-36.5 L (BEAKER) (test code = 752) RED CELL DISTRIBUTION WIDTH 15.9 % 11.6-14.4 H (BEAKER) (test code = 412) PLATELET COUNT (BEAKER) (test 330 K/CU MM 150-450 code = 756) MEAN PLATELET VOLUME (BEAKER) 8.8 fL 9.4-12.4 L (test code = 754) NUCLEATED RED BLOOD CELLS 0 /100 WBC 0-0 (BEAKER) (test code = 413) LACTIC ACID, [id number] 20:55:33 Test Item Value Reference Range Interpretation Comments LACTATE BLOOD VENOUS 1.21 mmol/L 0.50-2.20 Specime n moderately (2) (BEAKER) (test hemolyzed code = 2872) Ase Master Mechanic ID - BSRAD, CHEST, 1 VIEW, NON [id number] 17:25:00Reason for exam:- >Post PPM implantShould this be performed at the bedside?->Yes [facility] 1945 Sex: MFINAL REPORT RAD, CHEST, 1 VIEW, NON DEPT INDICATION: Post PPM implant COMPARISON: Prior day's exam FINDINGS: Portable frontal view of the chest. IMPRESSION: Support Lines: Interval insertion of pacer Lungs and pleura: Unchanged diffuse interstitial thickening, representing singly or in co mbination, interstitial edema and/or pneumonitis. No significant pneumothorax. Heart and mediastinum: Stable contours. Stable surgical changes. Additional findings: None. Signed: Johann Dela Cruz MDReprahul Verified Date/Time: 02/12/2022 17:25:48 Arterial doppler leg, [id number] 14:40:21Ejection FractionSLEH ECHO HEARTLAB MKCKESSON CPACSCHI [facility] CenterHEPATITIS B SURFACE ANTIGEN 2022-02-12 13:04:45 Test Item Value Reference Range Interpretation Comments HEPATITIS B SURFACE ANTIGEN (2) Nonreactive Nonreactive (BEAKER) (test code = 2585) Specimen is considered negative for HBsAg.LACTIC ACID, [id number] 12:40:59 Test Item Value Reference Range Interpretation Comments LACTATE BLOOD VENOUS 1.17 mmol/L 0.50-2.20 Specime n markedly (2) (BEAKER) (test hemolyzed code = 2872) Ase Master Mechanic ID - keiko bHEMOGLOBIN [id number] 10:13:26 Test Item Value Reference Range Interpretation Comments HEMOGLOBIN A1C 5.1 % See_Comment [Automated m essage] ELECTROPHORESIS (BEAKER) The system which (test code = 3811) generated this result transmitted ref erence range: <=5.6%. The reference range was not used to int erpret this result as normal/abnormal . "The A1c is measured using a NGSP-certified method. HbA1c value equal to or greater than 6.5% as thediagnosis cutoff for diabetes. An HbA1c value of 5.7- 6.4% indicates increased risk for diabetes (prediabetes)."Ase Master Mechanic ID - ADMBASIC METABOLIC [id number] 06:57:08 Test Item Value Reference Range Interpretation Comments SODIUM (BEAKER) 137 meq/L 136-145 (test code = 381) POTASSIUM 4.2 meq/L 3.5-5.1 (BEAKER) (test code = 379) CHLORIDE (BEAKER) 104 meq/L 98-107 (test code = 382) CO2 (BEAKER) 22 meq/L 22-29 (test code = 355) BLOOD UREA 41 mg/dL 7-21 H NITROGEN (BEAKER) (test code = 354) CREATININE 4.26 mg/dL 0.57-1.25 H (BEAKER) (test code = 358) GLUCOSE RANDOM 86 mg/dL 70-105 (BEAKER) (test code = 652) CALCIUM (BEAKER) 8.5 mg/dL 8.4-10.2 (test code = 697) EGFR (BEAKER) 14 Interpretatio n of eGFR (test code = mL/min/1.73 values Stage De scription 1092) sq m Result G1 Miguel l or high >=90 G2 Mildly decreased [...] not appl icable for dialysis patien ts Ase Master Mechanic ID - PIRADHA [id number] 05:43:53 Test Item Value Reference Range Interpretation Comments MAGNESIUM (BEAKER) (test code = 2.0 mg/dL 1.6-2.6 627) Ase Master Mechanic ID - ALY LLACTIC ACID, [id number] 05:22:48 Test Item Value Reference Range Interpretation Comments LACTATE BLOOD VENOUS 0.93 mmol/L 0.50-2.20 Specime n moderately (2) (BEAKER) (test hemolyzed code = 2872) Ase Master Mechanic ID - PIRADHA LCBC (HEMOGRAM ONLY)2022-02-12 05:03:20 Test Item Value Reference Range Interpretation Comments WHITE BLOOD CELL COUNT (BEAKER) 8.6 K/ L 3.5-10.5 (test code = 775) RED BLOOD CELL COUNT (BEAKER) 3.85 M/ L 4.63-6.08 L (test code = 761) HEMOGLOBIN (BEAKER) (test code = 11.0 GM/DL 13.7-17.5 L 410) HEMATOCRIT (BEAKER) (test code = 36.1 % 40.1-51.0 L 411) MEAN CORPUSCULAR VOLUME (BEAKER) 94 fL 79-92 H (test code = 753) MEAN CORPUSCULAR HEMOGLOBIN 28.6 pg 25.7-32.2 (BEAKER) (test code = 751) MEAN CORPUSCULAR HEMOGLOBIN CONC 30.5 GM/DL 32.3-36.5 L (BEAKER) (test code = 752) RED CELL DISTRIBUTION WIDTH 16.2 % 11.6-14.4 H (BEAKER) (test code = 412) PLATELET COUNT (BEAKER) (test 249 K/CU MM 150-450 code = 756) MEAN PLATELET VOLUME (BEAKER) 9.0 fL 9.4-12.4 L (test code = 754) NUCLEATED RED BLOOD CELLS 0 /100 WBC 0-0 (BEAKER) (test code = 413) [id number] 18:30:17 Test Item Value Reference Range Interpretation Comments FERRITIN (BEAKER) (test code = 1374.25 ng/mL 5.00-275.00 H 361) Ase Master Mechanic ID - ALY SALMON, TIBC, % SAT. (WITHOUT FERRITIN)2022-02-11 18:09:11 Test Item Value Reference Range Interpretation Comments IRON (BEAKER) (test code = 547) 26.0 ug/dL 40.0-160.0 L TOTAL IRON BINDING CAPACITY 194 ug/dL 250-450 L (BEAKER) (test code = 769) IRON % SATURATION (2) (BEAKER) 13 % 20-55 L (test code = 2590) Ase Master Mechanic ID - ALY LLACTIC ACID, [id number] 18:05:32 Test Item Value Reference Range Interpretation Comments LACTATE BLOOD VENOUS 1.72 mmol/L 0.50-2.20 Specime n moderately (2) (BEAKER) (test hemolyzed code = 2872) Ase Master Mechanic ID - KEIKO ALMAZ, CHEST, 1 VIEW, NON [id number] 17:03:00Reason for exam:->shortness of breathShould this be performed at the bedside?->Yes [facility] : 1945 Sex: MFINAL REPORT RAD, CHEST, 1 VIEW, NON DEPT INDICATION: shortness of breath COMPARISON: Prior day's exam FINDINGS: Portable frontal view of the chest. IMPRESSION: Support Lines: Right IJ approach lead terminates overlying the cardiac silhouette Lungs and pleura: Small bilateral effusions and basilar airspace disease are unchanged No significant pneumothorax. Heart and mediastinum: Stable contours. Additional findings: None. Signed: Johann Dela Cruz MDReport Verified Date/Time: 02/11/2022 17:03:46 Transthoracic 2D echo w/ doppler (cw/pw/color)2022-02-11 16:36:12Ejection FractionSLEH ECHO HEARTLAB [facility]CKESSON [facility] TROPONIN [id number] 16:22:02 Test Item Value Reference Range Interpretation Comments HIGH SENSITIVITY 25 pg/ml See_Comment [Automated message] TROPONIN I (test code = The system which [id number]) generated this result transmitted ref erence range: <=35. Th e reference range was not used to int erpret this result as normal/abnormal . Ase Master Mechanic ID - PIAYA LThe CONVEYOR LOADER STAT High Sensitivity Troponin-I results should be used in conjunction with other diagnostic information such as ECG, clinical observations and information, and patient symptoms to aid in the diagnosis of ND.B-TYPE NATRIURETIC FACTOR (BNP)2022-02-11 16:21:39 Test Item Value Reference Range Interpretation Comments B-TYPE NATRIURETIC PEPTIDE 3237 pg/mL 0-100 H (BEAKER) (test code = 700) Ase Master Mechanic ID - PIAYA LBASIC METABOLIC [id number] 16:16:55 Test Item Value Reference Range Interpretation Comments SODIUM (BEAKER) 135 meq/L 136-145 L (test code = 381) POTASSIUM 4.8 meq/L 3.5-5.1 (BEAKER) (test code = 379) CHLORIDE (BEAKER) 101 meq/L 98-107 (test code = 382) CO2 (BEAKER) 19 meq/L 22-29 L (test code = 355) BLOOD UREA 36 mg/dL 7-21 H NITROGEN (BEAKER) (test code = 354) CREATININE 4.13 mg/dL 0.57-1.25 H (BEAKER) (test code = 358) GLUCOSE RANDOM 292 mg/dL 70-105 H (BEAKER) (test code = 652) CALCIUM (BEAKER) 9.0 mg/dL 8.4-10.2 (test code = 697) EGFR (BEAKER) 14 Interpretatio n of eGFR (test code = mL/min/1.73 values Stage De scription 1092) sq m Result G1 Miguel l or high >=90 G2 Mildly decreased [...] not appl icable for dialysis patien ts Ase Master Mechanic ID - ALY [id number] 16:14:59 Test Item Value Reference Range Interpretation Comments MAGNESIUM (BEAKER) (test code = 2.1 mg/dL 1.6-2.6 627) Ase Master Mechanic ID - ALY [id number] 16:14:59 Test Item Value Reference Range Interpretation Comments PHOSPHORUS (BEAKER) (test code = 5.2 mg/dL 2.3-4.7 H 604) Ase Master Mechanic ID Pearl LU LLactic Acid, [id number] 16:10:12 Test Item Value Reference Range Interpretation Comments Lactate, Art (test 2.3 mmol/L 0.5-2.2 H Specimen code = 2874) slightly hemolyzed JACQUELYN (test code = JACQUELYN) Ase Master Mechanic ID - ALY L Lab Interpretation Abnormal (test code = 82399-4) [facility] [id number] 16:10:12 Test Item Value Reference Range Interpretation Comments LACTATE BLOOD 2.3 mmol/L 0.5-2.2 H Specimen sligh tly ARTERIAL (2) (BEAKER) hemoly zed (test code = 2874) Ase Master Mechanic ID Pearl LU LCBC W/PLT COUNT & AUTO [id number] 15:58:21 Test Item Value Reference Range Interpretation Comments WHITE BLOOD CELL COUNT (BEAKER) 11.5 K/ L 3.5-10.5 H (test code = 775) RED BLOOD CELL COUNT (BEAKER) 4.53 M/ L 4.63-6.08 L (test code = 761) HEMOGLOBIN (BEAKER) (test code = 12.9 GM/DL 13.7-17.5 L 410) HEMATOCRIT (BEAKER) (test code = 42.7 % 40.1-51.0 411) MEAN CORPUSCULAR VOLUME (BEAKER) 94 fL 79-92 H (test code = 753) MEAN CORPUSCULAR HEMOGLOBIN 28.5 pg 25.7-32.2 (BEAKER) (test code = 751) MEAN CORPUSCULAR HEMOGLOBIN CONC 30.2 GM/DL 32.3-36.5 L (BEAKER) (test code = 752) RED CELL DISTRIBUTION WIDTH 16.4 % 11.6-14.4 H (BEAKER) (test code = 412) PLATELET COUNT (BEAKER) (test 403 K/CU MM 150-450 code = 756) MEAN PLATELET VOLUME (BEAKER) 9.3 fL 9.4-12.4 L (test code = 754) NUCLEATED RED BLOOD CELLS 0 /100 WBC 0-0 (BEAKER) (test code = 413) NEUTROPHILS RELATIVE PERCENT 83 % (BEAKER) (test code = 429) LYMPHOCYTES RELATIVE PERCENT 6 % (BEAKER) (test code = 430) MONOCYTES RELATIVE PERCENT 6 % (BEAKER) (test code = 431) EOSINOPHILS RELATIVE PERCENT 3 % (BEAKER) (test code = 432) BASOPHILS RELATIVE PERCENT 1 % (BEAKER) (test code = 437) NEUTROPHILS ABSOLUTE COUNT 9.56 K/ L 1.78-5.38 H (BEAKER) (test code = 670) LYMPHOCYTES ABSOLUTE COUNT 0.73 K/ L 1.32-3.57 L (BEAKER) (test code = 414) MONOCYTES ABSOLUTE COUNT (BEAKER) 0.73 K/ L 0.30-0.82 (test code = 415) EOSINOPHILS ABSOLUTE COUNT 0.36 K/ L 0.04-0.54 (BEAKER) (test code = 416) BASOPHILS ABSOLUTE COUNT (BEAKER) 0.07 K/ L 0.01-0.08 (test code = 417) IMMATURE GRANULOCYTES-RELATIVE 0.30 % 0.00-1.00 PERCENT (BEAKER) (test code = 2801) Blood gas, [id number] 15:48:36 Test Item Value Reference Range Interpretation Comments pH, Arterial (test code 7.34 7.35-7.45 L = 2744-1) pCO2, Arterial (test 41 See_Comment [Autom ated code = 2019-8) message] The system which generated this result transmitted reference range : 35 - 45 mm Hg. The reference range was not used to interpret this result as normal/abnormal . pO2, Arterial (test 221 See_Comment H [Automa amado code = 2703-7) message] The system which generated this result transmitted reference range : 80 - 90 mm Hg. The reference range was not used to interpret this result as normal/abnormal . O2 Sat, Arterial (test 99.4 % 96.0-97.0 H code = 2708-6) HCO3, Arterial (test 21 mmol/L 21-29 code = 1960-4) Base Excess, Arterial -4.1 mmol/L -2.0-3.0 L (test code = 1925-7) Patient Temperature 37.5 (test code = 8310-5) FIO2 (test code = 1819) 80 Lab Interpretation Abnormal (test code = 01108-0) [facility] [id number] 15:48:36 Test Item Value Reference Range Interpretation Comments PH ARTERIAL (BEAKER) (test code = 7.34 7.35-7.45 L 383) PCO2 ARTERIAL (BEAKER) (test code 41 mm Hg 35-45 = 384) PO2 ARTERIAL (BEAKER) (test code 221 mm Hg 80-90 H = 385) O2 SATURATION ARTERIAL (BEAKER) 99.4 % 96.0-97.0 H (test code = 386) HCO3 ARTERIAL (BEAKER) (test code 21 mmol/L 21-29 = 388) BASE EXCESS ARTERIAL (BEAKER) -4.1 mmol/L -2.0-3.0 L (test code = 387) PATIENT TEMPERATURE (BEAKER) 37.5 (test code = 1818) FIO2 (BEAKER) (test code = 1819) 80.0 RAD, CHEST, 1 VIEW, NON [id number] 13:10:00Reason for exam:->tvpShould this be performed at the bedside?->Yes [facility] 1945 Sex: MFINAL REPORT RAD, CHEST, 1 VIEW, NON DEPT TECHNIQUE: Frontal view(s) of the chest. INDICATION: tvp COMPARISON: Chest radiograph 11 hours prior FINDINGS/IMPRESSION: Lines/Tubes: A temporarypacemaker wire with tip projecting over the proximal right ventricle Lungs/pleura: Slightly worsenedlower lobe predominant interstitial opacities. Trace right pleural effusion. No pneumothorax. Heart and Mediastinum: Enlarged cardiac silhouette, no convincing change. Soft Tissues and Bones: Unchanged. Signed: Nir Chen Verified Date/Time: 02/11/2022 13:10:56 Reading Location: [address] Consult Reading Room [facility] METABOLIC [id number] 08:14:26 Test Item Value Reference Range Interpretation Comments SODIUM (BEAKER) 138 meq/L 136-145 (test code = 381) POTASSIUM 4.5 meq/L 3.5-5.1 (BEAKER) (test code = 379) CHLORIDE (BEAKER) 104 meq/L 98-107 (test code = 382) CO2 (BEAKER) 22 meq/L 22-29 (test code = 355) BLOOD UREA 32 mg/dL 7-21 H NITROGEN (BEAKER) (test code = 354) CREATININE 3.95 mg/dL 0.57-1.25 H (BEAKER) (test code = 358) GLUCOSE RANDOM 91 mg/dL 70-105 (BEAKER) (test code = 652) CALCIUM (BEAKER) 9.2 mg/dL 8.4-10.2 (test code = 697) EGFR (BEAKER) 15 Interpretatio n of eGFR (test code = mL/min/1.73 values Stage De scription 1092) sq m Result G1 Miguel l or high >=90 G2 Mildly decreased 60-89 G3a Mildl y to moderately 45-5 9 G3b Moderately to s everely 30-44 G4 Severl y decreased 15-29 G5 Kidney failure <15Reported eGF R is based on the CKD-EPI 202 equation that d oes not use a race coefficientEsti mated GFR is not as accur ate as Creatinine Mercedes phillip in predicting glom erular filtration rate . Estimated GFR is not appl icable for dialysis patien ts Ase Master Mechanic ID - ALY LHIGH SENSITIVITY TROPONIN [id number] 08:08:46 Test Item Value Reference Range Interpretation Comments HIGH SENSITIVITY 18 pg/ml See_Comment [Automated message] TROPONIN I (test code = The system which [id number]) generated this result transmitted ref erence range: <=35. Th e reference range was not used to int erpret this result as normal/abnormal . Ase Master Mechanic ID - ALY LThe CONVEYOR LOADER STAT High Sensitivity Troponin-I results should be used in conjunction with other diagnostic information such as ECG, clinical observations and information, and patient symptoms to aid in the diagnosis of ND.[id number] 08:06:23 Test Item Value Reference Range Interpretation Comments MAGNESIUM (BEAKER) (test code = 2.1 mg/dL 1.6-2.6 627) Ase Master Mechanic ID - ALY LCBC W/PLT COUNT & AUTO [id number] 07:56:57 Test Item Value Reference Range Interpretation Comments WHITE BLOOD CELL COUNT (BEAKER) 9.2 K/ L 3.5-10.5 (test code = 775) RED BLOOD CELL COUNT (BEAKER) 4.01 M/ L 4.63-6.08 L (test code = 761) HEMOGLOBIN (BEAKER) (test code = 11.6 GM/DL 13.7-17.5 L 410) HEMATOCRIT (BEAKER) (test code = 37.5 % 40.1-51.0 L 411) MEAN CORPUSCULAR VOLUME (BEAKER) 94 fL 79-92 H (test code = 753) MEAN CORPUSCULAR HEMOGLOBIN 28.9 pg 25.7-32.2 (BEAKER) (test code = 751) MEAN CORPUSCULAR HEMOGLOBIN CONC 30.9 GM/DL 32.3-36.5 L (BEAKER) (test code = 752) RED CELL DISTRIBUTION WIDTH 16.2 % 11.6-14.4 H (BEAKER) (test code = 412) PLATELET COUNT (BEAKER) (test 288 K/CU MM 150-450 code = 756) MEAN PLATELET VOLUME (BEAKER) 9.4 fL 9.4-12.4 (test code = 754) NUCLEATED RED BLOOD CELLS 0 /100 WBC 0-0 (BEAKER) (test code = 413) NEUTROPHILS RELATIVE PERCENT 78 % (BEAKER) (test code = 429) LYMPHOCYTES RELATIVE PERCENT 6 % (BEAKER) (test code = 430) MONOCYTES RELATIVE PERCENT 10 % (BEAKER) (test code = 431) EOSINOPHILS RELATIVE PERCENT 6 % (BEAKER) (test code = 432) BASOPHILS RELATIVE PERCENT 0 % (BEAKER) (test code = 437) NEUTROPHILS ABSOLUTE COUNT 7.13 K/ L 1.78-5.38 H (BEAKER) (test code = 670) LYMPHOCYTES ABSOLUTE COUNT 0.57 K/ L 1.32-3.57 L (BEAKER) (test code = 414) MONOCYTES ABSOLUTE COUNT (BEAKER) 0.88 K/ L 0.30-0.82 H (test code = 415) EOSINOPHILS ABSOLUTE COUNT 0.53 K/ L 0.04-0.54 (BEAKER) (test code = 416) BASOPHILS ABSOLUTE COUNT (BEAKER) 0.04 K/ L 0.01-0.08 (test code = 417) IMMATURE GRANULOCYTES-RELATIVE 0.30 % 0.00-1.00 PERCENT (BEAKER) (test code = 2801) RAD, CHEST, 1 VIEW, NON [id number] 07:25:00Reason for exam:- >baselineShould this be performed at the bedside?->Yes [facility] : 1945 Sex: MFINAL REPORT RAD, CHEST, 1 VIEW, NON DEPT INDICATION: baseline COMPARISON: Prior day's exam FINDINGS: Portable frontal view of the chest. IMPRESSION: Support Lines: Overlying leads/monitors. Lungs and pleura: Trace bilateral effusions. Lower lobe subsegmental atelectasis. No significant p neumothorax. Heart and mediastinum: Stable contours. Additional findings: None. Signed: Johann Dela Cruzeprahul Verified Date/Time: 02/11/2022 07:25:38 C METABOLIC [id number] 01:36:05 Test Item Value Reference Range Interpretation Comments SODIUM (BEAKER) 136 meq/L 136-145 (test code = 381) POTASSIUM 4.1 meq/L 3.5-5.1 (BEAKER) (test code = 379) CHLORIDE (BEAKER) 103 meq/L 98-107 (test code = 382) CO2 (BEAKER) 27 meq/L 22-29 (test code = 355) BLOOD UREA 30 mg/dL 7-21 H NITROGEN (BEAKER) (test code = 354) CREATININE 3.74 mg/dL 0.57-1.25 H (BEAKER) (test code = 358) GLUCOSE RANDOM 81 mg/dL 70-105 (BEAKER) (test code = 652) CALCIUM (BEAKER) 8.9 mg/dL 8.4-10.2 (test code = 697) EGFR (BEAKER) 16 Interpretatio n of eGFR (test code = mL/min/1.73 values Stage De scription 1092) sq m Result G1 Miguel l or high >=90 G2 Mildly decreased [...] not appl icable for dialysis patien ts Ase Master Mechanic ID - ALY LTSH/FREE T4 IF [id number] 01:07:43 Test Item Value Reference Range Interpretation Comments THYROID STIMULATING HORMONE 1.498 uIU/mL 0.350-4.940 (BEAKER) (test code = 772) Ase Master Mechanic ID - ALY [id number] 00:53:24 Test Item Value Reference Range Interpretation Comments MAGNESIUM (BEAKER) (test code = 2.1 mg/dL 1.6-2.6 627) Ase Master Mechanic ID - ALY [id number] 00:53:24 Test Item Value Reference Range Interpretation Comments PHOSPHORUS (BEAKER) (test code = 3.8 mg/dL 2.3-4.7 604) Ase Master Mechanic ID - ALY LHEPATIC FUNCTION [id number] 00:53:24 Test Item Value Reference Range Interpretation Comments TOTAL PROTEIN (BEAKER) (test code = 7.2 gm/dL 6.0-8.3 770) ALBUMIN (BEAKER) (test code = 1145) 3.4 g/dL 3.5-5.0 L BILIRUBIN TOTAL (BEAKER) (test code 0.5 mg/dL 0.2-1.2 = 377) BILIRUBIN DIRECT (BEAKER) (test 0.2 mg/dL 0.1-0.5 code = 706) ALKALINE PHOSPHATASE (BEAKER) (test 133 U/L 40-150 code = 346) AST (SGOT) (BEAKER) (test code = 17 U/L 5-34 353) ALT (SGPT) (BEAKER) (test code = 9 U/L 6-55 347) Ase Master Mechanic ID - ALY LB-TYPE NATRIURETIC FACTOR (BNP)2022-02-11 00:43:22 Test Item Value Reference Range Interpretation Comments B-TYPE NATRIURETIC PEPTIDE 2592 pg/mL 0-100 H (BEAKER) (test code = 700) Ase Master Mechanic ID - ALY LHIGH SENSITIVITY TROPONIN [id number] 00:43:01 Test Item Value Reference Range Interpretation Comments HIGH SENSITIVITY 24 pg/ml See_Comment [Automated message] TROPONIN I (test code = The system which [id number]) generated this result transmitted ref erence range: <=35. Th e reference range was not used to int erpret this result as normal/abnormal . Ase Master Mechanic ID - PIAYA LThe CONVEYOR LOADER STAT High Sensitivity Troponin-I results should be used in conjunction with other diagnostic information such as ECG, clinical observations and information, and patient symptoms to aid in the diagnosis of ND.CBC W/PLT COUNT & AUTO [id number] 00:22:34 Test Item Value Reference Range Interpretation Comments WHITE BLOOD CELL COUNT (BEAKER) 11.1 K/ L 3.5-10.5 H (test code = 775) RED BLOOD CELL COUNT (BEAKER) 3.38 M/ L 4.63-6.08 L (test code = 761) HEMOGLOBIN (BEAKER) (test code = 9.7 GM/DL 13.7-17.5 L 410) HEMATOCRIT (BEAKER) (test code = 31.1 % 40.1-51.0 L 411) MEAN CORPUSCULAR VOLUME (BEAKER) 92 fL 79-92 (test code = 753) MEAN CORPUSCULAR HEMOGLOBIN 28.7 pg 25.7-32.2 (BEAKER) (test code = 751) MEAN CORPUSCULAR HEMOGLOBIN CONC 31.2 GM/DL 32.3-36.5 L (BEAKER) (test code = 752) RED CELL DISTRIBUTION WIDTH 16.1 % 11.6-14.4 H (BEAKER) (test code = 412) PLATELET COUNT (BEAKER) (test 339 K/CU MM 150-450 code = 756) MEAN PLATELET VOLUME (BEAKER) 9.3 fL 9.4-12.4 L (test code = 754) NUCLEATED RED BLOOD CELLS 0 /100 WBC 0-0 (BEAKER) (test code = 413) NEUTROPHILS RELATIVE PERCENT 73 % (BEAKER) (test code = 429) LYMPHOCYTES RELATIVE PERCENT 10 % (BEAKER) (test code = 430) MONOCYTES RELATIVE PERCENT 10 % (BEAKER) (test code = 431) EOSINOPHILS RELATIVE PERCENT 6 % (BEAKER) (test code = 432) BASOPHILS RELATIVE PERCENT 1 % (BEAKER) (test code = 437) NEUTROPHILS ABSOLUTE COUNT 8.08 K/ L 1.78-5.38 H (BEAKER) (test code = 670) LYMPHOCYTES ABSOLUTE COUNT 1.10 K/ L 1.32-3.57 L (BEAKER) (test code = 414) MONOCYTES ABSOLUTE COUNT (BEAKER) 1.15 K/ L 0.30-0.82 H (test code = 415) EOSINOPHILS ABSOLUTE COUNT 0.62 K/ L 0.04-0.54 H (BEAKER) (test code = 416) BASOPHILS ABSOLUTE COUNT (BEAKER) 0.06 K/ L 0.01-0.08 (test code = 417) IMMATURE GRANULOCYTES-RELATIVE 0.40 % 0.00-1.00 PERCENT (BEAKER) (test code = 2801) [id number] 20:37:00 Test Item Value Reference Range Interpretation Comments Eosinophils # (test code 0.5 See_Comment [A utomated message] The = Eosinophils #) system whic h generated this result tra nsmitted reference range : <=0.5. The reference r za was not used to int erpret this result as normal/abnormal . [facility]wallMarrfbgADIWAMNJP7589-89-99 20:37:00 Test Item Value Reference Range Interpretation Comments Glucose Lvl (test code = Glucose Lvl) 109 70-99 [facility]wallStwjkwkXFVCXGOUO0817-85-07 20:37:00 Test Item Value Reference Range Interpretation Comments BUN (test code = BUN) 35 7-22 [facility] RockwallUenkfucAOTNSYWEE1877-66-36 20:37:00 Test Item Value Reference Range Interpretation Comments Creatinine Lvl (test code = Creatinine 3.70 0.50-1.40 Lvl) [facility] RockwallLqfuedjVRQMPLDAP2873-16-55 20:37:00 Test Item Value Reference Range Interpretation Comments Sodium Lvl (test code = Sodium Lvl) 142 135-145 [facility] RockwallYiczlfbGZLUNCLUO7590-91-84 20:37:00 Test Item Value Reference Range Interpretation Comments Potassium Lvl (test code = Potassium 3.9 3.5-5.1 Lvl) [facility] RockwallGhsqwuzTARLAONTD0138-48-09 20:37:00 Test Item Value Reference Range Interpretation Comments Chloride Lvl (test code = Chloride Lvl) 108 95-109 [facility] RockwallGgjwytfNPVXVMBIK7076-64-76 20:37:00 Test Item Value Reference Range Interpretation Comments CO2 (test code = CO2) 26 24-32 [facility] RockwallEqgbyepOMZWYXKYH2303-14-37 20:37:00 Test Item Value Reference Range Interpretation Comments Calcium Lvl (test code = Calcium Lvl) 7.8 8.5-10.5 [facility] RockwallLezgnkpJLOVPBERE8328-24-59 20:37:00 Test Item Value Reference Range Interpretation Comments AGAP (test code = AGAP) 11.9 10.0-20.0 [facility] RockwallEuyavynRAYKUIHDC8191-75-46 20:37:00 Test Item Value Reference Range Interpretation Comments eGFR (test code = eGFR) 16 [facility] CenterCnilqlxJCMILTNNDQ5530-89-45 20:37:00 Test Item Value Reference Range Interpretation Comments WBC X 10x3 (test code = WBC X 10x3) 9.8 3.7-10.4 [facility] CenterCnmxfniBAYSIVVOLH3781-54-58 20:37:00 Test Item Value Reference Range Interpretation Comments RBC X 10x6 (test code = RBC X 10x6) 2.88 4.70-6.10 [facility] CenterVpvqvhdIIIQGPKLDT7667-97-77 20:37:00 Test Item Value Reference Range Interpretation Comments Hgb (test code = Hgb) 8.4 14.0-18.0 [facility] CenterXeclynkEYUPQAHCTU6312-40-16 20:37:00 Test Item Value Reference Range Interpretation Comments Hct (test code = Hct) 25.7 42.0-54.0 [facility] CenterHqxvnalKHTKJPLJKK0628-87-93 20:37:00 Test Item Value Reference Range Interpretation Comments MCV (test code = MCV) 89.0 80.0-94.0 [facility] CenterTtrgsqdLOOALPXIWW1293-99-49 20:37:00 Test Item Value Reference Range Interpretation Comments MCH (test code = MCH) 29.1 pg 27.0-31.0 [facility] CenterQehpbgjFCLXRXJHPK8378-00-19 20:37:00 Test Item Value Reference Range Interpretation Comments MCHC (test code = MCHC) 32.6 32.0-36.0 [facility] CenterPhbdluyILTTDUHLMR8229-94-39 20:37:00 Test Item Value Reference Range Interpretation Comments RDW (test code = RDW) 17.7 11.5-14.5 [facility] CenterQmvpjguIGYITHTZEL4475-27-22 20:37:00 Test Item Value Reference Range Interpretation Comments Platelet (test code = Platelet) 346 133-450 [facility] CenterSuvetwxJJPEERHHJB8529-52-06 20:37:00 Test Item Value Reference Range Interpretation Comments MPV (test code = MPV) 6.7 7.4-10.4 [place] 897052-11-11 20:37:00 Test Item Value Reference Range Interpretation Comments Segs (test code = Segs) 81.8 45.0-75.0 [facility] CenterBzcycmbPMJHSBAMNS0211-53-34 20:37:00 Test Item Value Reference Range Interpretation Comments Lymphocytes (test code = Lymphocytes) 5.6 20.0-40.0 [place] 897052-11-11 20:37:00 Test Item Value Reference Range Interpretation Comments Monocytes (test code = Monocytes) 6.8 2.0-12.0 [place] 897052-11-11 20:37:00 Test Item Value Reference Range Interpretation Comments Eosinophils (test code = 5.3 See_Comment [A utomated message] The Eosinophils) system which ge nerated this result tra nsmitted reference range : <=4.0. The reference r za was not used to int erpret this result as normal/abnormal . [facility] CenterNsmcuomNQDNWDYAOT3992-22-07 20:37:00 Test Item Value Reference Range Interpretation Comments Basophils (test code = 0.5 See_Comment [Aut omated message] The Basophils) system which ge nerated this result tra nsmitted reference range : <=1.0. The reference r za was not used to int erpret this result as normal/abnormal . [facility] CenterWiwguhuZIBYOXBLJS7119-52-73 20:37:00 Test Item Value Reference Range Interpretation Comments Neutrophils # (test code = Neutrophils 8.0 1.5-8.1 #) [facility] CenterSnofmpbFQYSWWUJJW8446-86-41 20:37:00 Test Item Value Reference Range Interpretation Comments Lymphocytes # (test code = Lymphocytes 0.5 1.0-5.5 #) [place] 897052-11-11 20:37:00 Test Item Value Reference Range Interpretation Comments Monocytes # (test code 0.7 See_Comment [Aut omated message] The = Monocytes #) system which generated this result tra nsmitted reference range : <=0.8. The reference r za was not used to int erpret this result as normal/abnormal . [place] 876892-11-11 20:37:00 Test Item Value Reference Range Interpretation Comments Glucose Lvl (test code = Glucose Lvl) 109 70-99 [place] [address]-11-11 20:37:00 Test Item Value Reference Range Interpretation Comments BUN (test code = BUN) 35 7-22 [facility] RockwallBjaduogCTHQWPGMP4774-63-88 20:37:00 Test Item Value Reference Range Interpretation Comments Creatinine Lvl (test code = Creatinine 3.70 0.50-1.40 Lvl) [facility] RockwallYqptxzcKNRGTJEDJ3522-17-66 20:37:00 Test Item Value Reference Range Interpretation Comments Sodium Lvl (test code = Sodium Lvl) 142 135-145 [facility] RockwallPwcypxwRAWXHMGST1709-48-62 20:37:00 Test Item Value Reference Range Interpretation Comments Potassium Lvl (test code = Potassium 3.9 3.5-5.1 Lvl) [facility] RockwallRtnyscqKBBRFOHBV6712-04-56 20:37:00 Test Item Value Reference Range Interpretation Comments Chloride Lvl (test code = Chloride Lvl) 108 95-109 [facility] RockwallMwyclcmQWLILBDQQ4724-57-22 20:37:00 Test Item Value Reference Range Interpretation Comments CO2 (test code = CO2) 26 24-32 [facility] RockwallNwjxsmnVXDRHZONE2490-93-72 20:37:00 Test Item Value Reference Range Interpretation Comments Calcium Lvl (test code = Calcium Lvl) 7.8 8.5-10.5 [facility] RockwallJjjisqcXCHAOADNJ5735-86-95 20:37:00 Test Item Value Reference Range Interpretation Comments AGAP (test code = AGAP) 11.9 10.0-20.0 [facility] RockwallHwzlkreOKJIAKPCF4614-93-74 20:37:00 Test Item Value Reference Range Interpretation Comments eGFR (test code = eGFR) 16 [facility] CenterNnxbtndOAAPLYIJUK8430-79-11 20:37:00 Test Item Value Reference Range Interpretation Comments WBC X 10x3 (test code = WBC X 10x3) 9.8 3.7-10.4 [facility] CenterOpchwotEHLZTQOTBK0738-08-57 20:37:00 Test Item Value Reference Range Interpretation Comments RBC X 10x6 (test code = RBC X 10x6) 2.88 4.70-6.10 [facility] CenterHpbfkkvIRYSJMUGBV4093-81-43 20:37:00 Test Item Value Reference Range Interpretation Comments Hgb (test code = Hgb) 8.4 14.0-18.0 [facility] CenterPonatwsMGWJQCNBDH9522-01-54 20:37:00 Test Item Value Reference Range Interpretation Comments Hct (test code = Hct) 25.7 42.0-54.0 [place] 897052-11-11 20:37:00 Test Item Value Reference Range Interpretation Comments MCV (test code = MCV) 89.0 80.0-94.0 [place] 897052-11-11 20:37:00 Test Item Value Reference Range Interpretation Comments MCH (test code = MCH) 29.1 pg 27.0-31.0 [place] 897052-11-11 20:37:00 Test Item Value Reference Range Interpretation Comments MCHC (test code = MCHC) 32.6 32.0-36.0 [place] 897052-11-11 20:37:00 Test Item Value Reference Range Interpretation Comments RDW (test code = RDW) 17.7 11.5-14.5 [place] 897052-11-11 20:37:00 Test Item Value Reference Range Interpretation Comments Platelet (test code = Platelet) 346 133-450 [facility] CenterCtrqqreLVGNKOLBQJ2701-88-48 20:37:00 Test Item Value Reference Range Interpretation Comments MPV (test code = MPV) 6.7 7.4-10.4 [place] 897052-11-11 20:37:00 Test Item Value Reference Range Interpretation Comments Segs (test code = Segs) 81.8 45.0-75.0 [facility] CenterTmyxgrlUODKODBTTY7744-18-92 20:37:00 Test Item Value Reference Range Interpretation Comments Lymphocytes (test code = Lymphocytes) 5.6 20.0-40.0 [place] 897052-11-11 20:37:00 Test Item Value Reference Range Interpretation Comments Monocytes (test code = Monocytes) 6.8 2.0-12.0 [place] [address]-11-11 20:37:00 Test Item Value Reference Range Interpretation Comments Eosinophils (test code = 5.3 See_Comment [A utomated message] The Eosinophils) system which ge nerated this result tra nsmitted reference range : <=4.0. The reference r za was not used to int erpret this result as normal/abnormal . [place] 897052-11-11 20:37:00 Test Item Value Reference Range Interpretation Comments Basophils (test code = 0.5 See_Comment [Aut omated message] The Basophils) system which ge nerated this result tra nsmitted reference range : <=1.0. The reference r za was not used to int erpret this result as normal/abnormal . [facility] CenterLzovqudDQTTZOVTXN4098-79-73 20:37:00 Test Item Value Reference Range Interpretation Comments Neutrophils # (test code = Neutrophils 8.0 1.5-8.1 #) [facility] CenterExmmsymYSWLJRKHAV5930-80-09 20:37:00 Test Item Value Reference Range Interpretation Comments Lymphocytes # (test code = Lymphocytes 0.5 1.0-5.5 #) [facility] CenterWdbtbrvCDZAWNBMRT6454-99-53 20:37:00 Test Item Value Reference Range Interpretation Comments Monocytes # (test code 0.7 See_Comment [Aut omated message] The = Monocytes #) system which generated this result tra nsmitted reference range : <=0.8. The reference r za was not used to int erpret this result as normal/abnormal . [facility] CenterIiewrcmYSJUNINZBY5937-75-75 20:37:00 Test Item Value Reference Range Interpretation Comments Eosinophils # (test code 0.5 See_Comment [A utomated message] The = Eosinophils #) system whic h generated this result tra nsmitted reference range : <=0.5. The reference r za was not used to int erpret this result as normal/abnormal . [facility] RockwallZombvmsJCKTCWVRJ7465-80-59 20:37:00 Test Item Value Reference Range Interpretation Comments Glucose Lvl (test code = Glucose Lvl) 109 70-99 [facility] RockwallTugzkxgHZQVAQYDX4371-17-16 20:37:00 Test Item Value Reference Range Interpretation Comments BUN (test code = BUN) 35 7-22 [facility] RockwallBfrfiyvSCOHEEHVK7696-11-83 20:37:00 Test Item Value Reference Range Interpretation Comments Creatinine Lvl (test code = Creatinine 3.70 0.50-1.40 Lvl) [facility] RockwallXonrotcGYOUECBPS6688-01-94 20:37:00 Test Item Value Reference Range Interpretation Comments Sodium Lvl (test code = Sodium Lvl) 142 135-145 [facility] RockwallRovmbuvISEGEFBDV0624-38-08 20:37:00 Test Item Value Reference Range Interpretation Comments Potassium Lvl (test code = Potassium 3.9 3.5-5.1 Lvl) [facility] RockwallSefrduaGWVXLPBFZ9848-35-94 20:37:00 Test Item Value Reference Range Interpretation Comments Chloride Lvl (test code = Chloride Lvl) 108 95-109 [facility] RockwallYdrzqtgLKSHCPCQM0133-56-04 20:37:00 Test Item Value Reference Range Interpretation Comments CO2 (test code = CO2) 26 24-32 [facility] RockwallZvdwouwRHVAHYLZO1019-98-11 20:37:00 Test Item Value Reference Range Interpretation Comments Calcium Lvl (test code = Calcium Lvl) 7.8 8.5-10.5 [facility] RockwallRgckgzsOLOAHDCST6760-94-84 20:37:00 Test Item Value Reference Range Interpretation Comments AGAP (test code = AGAP) 11.9 10.0-20.0 [facility] RockwallRqboqvtQPDUUUCPR4738-85-33 20:37:00 Test Item Value Reference Range Interpretation Comments eGFR (test code = eGFR) 16 [facility] CenterCmbpjmtTCNRWVUUNK7691-19-50 20:37:00 Test Item Value Reference Range Interpretation Comments WBC X 10x3 (test code = WBC X 10x3) 9.8 3.7-10.4 [facility] CenterDwpivpvFRUIVTNAOA4302-96-66 20:37:00 Test Item Value Reference Range Interpretation Comments RBC X 10x6 (test code = RBC X 10x6) 2.88 4.70-6.10 [facility] CenterJkpsgvcRBNSRMXOZO4989-61-41 20:37:00 Test Item Value Reference Range Interpretation Comments Hgb (test code = Hgb) 8.4 14.0-18.0 [facility] CenterCatfbxbBYHFKNMZUQ7081-19-91 20:37:00 Test Item Value Reference Range Interpretation Comments Hct (test code = Hct) 25.7 42.0-54.0 [facility] CenterJbdfforJYDHJKAZOS3824-50-15 20:37:00 Test Item Value Reference Range Interpretation Comments MCV (test code = MCV) 89.0 80.0-94.0 [facility] CenterFuchbeuPRNXEAXOSF6407-37-88 20:37:00 Test Item Value Reference Range Interpretation Comments MCH (test code = MCH) 29.1 pg 27.0-31.0 [facility]HqblnwpZLDRBZDHKA9950-73-17 20:37:00 Test Item Value Reference Range Interpretation Comments MCHC (test code = MCHC) 32.6 32.0-36.0 [facility] CenterMrpncyaCQFEWBMTDZ8128-43-95 20:37:00 Test Item Value Reference Range Interpretation Comments RDW (test code = RDW) 17.7 11.5-14.5 [place] 897052-11-11 20:37:00 Test Item Value Reference Range Interpretation Comments Platelet (test code = Platelet) 346 133-450 [place] 897052-11-11 20:37:00 Test Item Value Reference Range Interpretation Comments MPV (test code = MPV) 6.7 7.4-10.4 [place] 897052-11-11 20:37:00 Test Item Value Reference Range Interpretation Comments Segs (test code = Segs) 81.8 45.0-75.0 [place] 897052-11-11 20:37:00 Test Item Value Reference Range Interpretation Comments Lymphocytes (test code = Lymphocytes) 5.6 20.0-40.0 [place] 897052-11-11 20:37:00 Test Item Value Reference Range Interpretation Comments Monocytes (test code = Monocytes) 6.8 2.0-12.0 [place] 897052-11-11 20:37:00 Test Item Value Reference Range Interpretation Comments Eosinophils (test code = 5.3 See_Comment [A utomated message] The Eosinophils) system which ge nerated this result tra nsmitted reference range : <=4.0. The reference r za was not used to int erpret this result as normal/abnormal . [place] 897052-11-11 20:37:00 Test Item Value Reference Range Interpretation Comments Basophils (test code = 0.5 See_Comment [Aut omated message] The Basophils) system which ge nerated this result tra nsmitted reference range : <=1.0. The reference r za was not used to int erpret this result as normal/abnormal . [facility] CenterLaljngjLPMYXREMEK7121-40-88 20:37:00 Test Item Value Reference Range Interpretation Comments Neutrophils # (test code = Neutrophils 8.0 1.5-8.1 #) [place] 897052-11-11 20:37:00 Test Item Value Reference Range Interpretation Comments Lymphocytes # (test code = Lymphocytes 0.5 1.0-5.5 #) [place] 897052-11-11 20:37:00 Test Item Value Reference Range Interpretation Comments Monocytes # (test code 0.7 See_Comment [Aut omated message] The = Monocytes #) system which generated this result tra nsmitted reference range : <=0.8. The reference r za was not used to int erpret this result as normal/abnormal . [facility] CenterCjmyacbCROUUTKUTH9376-42-67 20:37:00 Test Item Value Reference Range Interpretation Comments Eosinophils # (test code 0.5 See_Comment [A utomated message] The = Eosinophils #) system whic h generated this result tra nsmitted reference range : <=0.5. The reference r za was not used to int erpret this result as normal/abnormal . [facility] ResourcesTbwsvuuXHVWYMGPF5028-00-21 20:37:00 Test Item Value Reference Range Interpretation Comments Glucose Lvl (test code = Glucose Lvl) 109 70-99 [facility]GgxwhfxBNFAJFHCI2627-48-62 20:37:00 Test Item Value Reference Range Interpretation Comments BUN (test code = BUN) 35 7-22 [facility] ResourcesRcjgftfJFGVRYSZZ2554-28-56 20:37:00 Test Item Value Reference Range Interpretation Comments Creatinine Lvl (test code = Creatinine 3.70 0.50-1.40 Lvl) [facility]wallMhevfcnGJGZZEAAQ0661-04-27 20:37:00 Test Item Value Reference Range Interpretation Comments Sodium Lvl (test code = Sodium Lvl) 142 135-145 [facility] ResourcesQklkhzmVUUSLOWTV0078-81-99 20:37:00 Test Item Value Reference Range Interpretation Comments Potassium Lvl (test code = Potassium 3.9 3.5-5.1 Lvl) [facility]wallVjgrazqPUPJPZOAE1341-17-16 20:37:00 Test Item Value Reference Range Interpretation Comments Chloride Lvl (test code = Chloride Lvl) 108 95-109 [facility] ResourcesFjvqsssSURKDWEEC1822-08-09 20:37:00 Test Item Value Reference Range Interpretation Comments CO2 (test code = CO2) 26 24-32 [facility] ResourcesGnyeybfAKBWFWHIT8870-69-86 20:37:00 Test Item Value Reference Range Interpretation Comments Calcium Lvl (test code = Calcium Lvl) 7.8 8.5-10.5 [facility]wallJkwaebeNWMSUHCYL9746-44-11 20:37:00 Test Item Value Reference Range Interpretation Comments AGAP (test code = AGAP) 11.9 10.0-20.0 [facility] ResourcesThtatizUQVFTXMNV0754-61-45 20:37:00 Test Item Value Reference Range Interpretation Comments eGFR (test code = eGFR) 16 [facility] CenterGchfbwdDAWZHHUPZU2824-97-19 20:37:00 Test Item Value Reference Range Interpretation Comments WBC X 10x3 (test code = WBC X 10x3) 9.8 3.7-10.4 [facility] CenterHydlcvvRZCYIYXRPD1640-44-87 20:37:00 Test Item Value Reference Range Interpretation Comments RBC X 10x6 (test code = RBC X 10x6) 2.88 4.70-6.10 [facility] CenterZetrqudYJPGTJFHJP1294-56-94 20:37:00 Test Item Value Reference Range Interpretation Comments Hgb (test code = Hgb) 8.4 14.0-18.0 [facility] CenterYzurmkuKRQSGAXGSU0500-41-44 20:37:00 Test Item Value Reference Range Interpretation Comments Hct (test code = Hct) 25.7 42.0-54.0 [facility] CenterZhekxlwHYNUFXQWBN7834-91-87 20:37:00 Test Item Value Reference Range Interpretation Comments MCV (test code = MCV) 89.0 80.0-94.0 [facility] CenterFbjrerhJZRIRTUZQQ0253-47-20 20:37:00 Test Item Value Reference Range Interpretation Comments MCH (test code = MCH) 29.1 pg 27.0-31.0 [facility] CenterHfskrazCXBGQDYJUU2821-20-09 20:37:00 Test Item Value Reference Range Interpretation Comments MCHC (test code = MCHC) 32.6 32.0-36.0 [facility] CenterEfebnvmJSHQGBZPOG6878-46-09 20:37:00 Test Item Value Reference Range Interpretation Comments RDW (test code = RDW) 17.7 11.5-14.5 [facility] CenterFwaqtlyIAXLKJJTHT2583-41-34 20:37:00 Test Item Value Reference Range Interpretation Comments Platelet (test code = Platelet) 346 133-450 [facility] CenterEqxcmxqJNGFRSLOCC4803-61-30 20:37:00 Test Item Value Reference Range Interpretation Comments MPV (test code = MPV) 6.7 7.4-10.4 [facility] CenterEpkjsncKZUJURIVML7670-95-11 20:37:00 Test Item Value Reference Range Interpretation Comments Segs (test code = Segs) 81.8 45.0-75.0 [facility] CenterFmgagiaCYKJMXBSFN4232-97-37 20:37:00 Test Item Value Reference Range Interpretation Comments Lymphocytes (test code = Lymphocytes) 5.6 20.0-40.0 [place] 897052-11-11 20:37:00 Test Item Value Reference Range Interpretation Comments Monocytes (test code = Monocytes) 6.8 2.0-12.0 [facility] CenterUphsyobCEDPGVSSGT1992-59-35 20:37:00 Test Item Value Reference Range Interpretation Comments Eosinophils (test code = 5.3 See_Comment [A utomated message] The Eosinophils) system which ge nerated this result tra nsmitted reference range : <=4.0. The reference r za was not used to int erpret this result as normal/abnormal . [facility] CenterBxerhkxGLXSOKKHFA5786-32-14 20:37:00 Test Item Value Reference Range Interpretation Comments Basophils (test code = 0.5 See_Comment [Aut omated message] The Basophils) system which ge nerated this result tra nsmitted reference range : <=1.0. The reference r za was not used to int erpret this result as normal/abnormal . [facility] CenterEzffpxiKPYFFBTXAC3381-66-29 20:37:00 Test Item Value Reference Range Interpretation Comments Neutrophils # (test code = Neutrophils 8.0 1.5-8.1 #) [facility] CenterQljduztQKJNKSBODA0157-53-54 20:37:00 Test Item Value Reference Range Interpretation Comments Lymphocytes # (test code = Lymphocytes 0.5 1.0-5.5 #) [facility] CenterCvdkgoiIFPNBAXXKN2760-13-10 20:37:00 Test Item Value Reference Range Interpretation Comments Monocytes # (test code 0.7 See_Comment [Aut omated message] The = Monocytes #) system which generated this result tra nsmitted reference range : <=0.8. The reference r za was not used to int erpret this result as normal/abnormal . [place] [address]-11-11 20:37:00 Test Item Value Reference Range Interpretation Comments Eosinophils # (test code 0.5 See_Comment [A utomated message] The = Eosinophils #) system whic h generated this result tra nsmitted reference range : <=0.5. The reference r za was not used to int erpret this result as normal/abnormal . [place] 876892-11-11 20:37:00 Test Item Value Reference Range Interpretation Comments Glucose Lvl (test code = Glucose Lvl) 109 70-99 [facility]wallGfjeczmXCXKBXUEC5622-07-93 20:37:00 Test Item Value Reference Range Interpretation Comments BUN (test code = BUN) 35 7-22 [facility]wallEyumgdfPIUKCSINZ6822-43-79 20:37:00 Test Item Value Reference Range Interpretation Comments Creatinine Lvl (test code = Creatinine 3.70 0.50-1.40 Lvl) [facility]wallIhnzyemXXBUBJGCC4380-48-68 20:37:00 Test Item Value Reference Range Interpretation Comments Sodium Lvl (test code = Sodium Lvl) 142 135-145 [facility] RockwallRiujrkbBNNISOFVV6023-85-24 20:37:00 Test Item Value Reference Range Interpretation Comments Potassium Lvl (test code = Potassium 3.9 3.5-5.1 Lvl) [facility]wallXkwudufVJTOSBBDC4919-15-45 20:37:00 Test Item Value Reference Range Interpretation Comments Chloride Lvl (test code = Chloride Lvl) 108 95-109 [facility] RockwallYborgryVMBSYLJWF0684-49-62 20:37:00 Test Item Value Reference Range Interpretation Comments CO2 (test code = CO2) 26 24-32 [facility] RockwallUbydxmzCAMUSCRSF0426-49-58 20:37:00 Test Item Value Reference Range Interpretation Comments Calcium Lvl (test code = Calcium Lvl) 7.8 8.5-10.5 [facility] RockwallXfmlgvkBDCUXHXAU8795-47-57 20:37:00 Test Item Value Reference Range Interpretation Comments AGAP (test code = AGAP) 11.9 10.0-20.0 [facility] RockwallToqwjrvBVFXAEZEN6158-00-31 20:37:00 Test Item Value Reference Range Interpretation Comments eGFR (test code = eGFR) 16 [facility] CenterBffjspcPXBFOXGINT3010-11-24 20:37:00 Test Item Value Reference Range Interpretation Comments WBC X 10x3 (test code = WBC X 10x3) 9.8 3.7-10.4 [facility] CenterNhbmwtiGUKJUMFEFV4827-39-37 20:37:00 Test Item Value Reference Range Interpretation Comments RBC X 10x6 (test code = RBC X 10x6) 2.88 4.70-6.10 [facility] CenterVxgszfxPYSMXJZUFC0657-64-63 20:37:00 Test Item Value Reference Range Interpretation Comments Hgb (test code = Hgb) 8.4 14.0-18.0 [facility] CenterUgdxelvFGFZRAHIZO3871-78-36 20:37:00 Test Item Value Reference Range Interpretation Comments Hct (test code = Hct) 25.7 42.0-54.0 [place] 897052-11-11 20:37:00 Test Item Value Reference Range Interpretation Comments MCV (test code = MCV) 89.0 80.0-94.0 [place] 897052-11-11 20:37:00 Test Item Value Reference Range Interpretation Comments MCH (test code = MCH) 29.1 pg 27.0-31.0 [place] 897052-11-11 20:37:00 Test Item Value Reference Range Interpretation Comments MCHC (test code = MCHC) 32.6 32.0-36.0 [place] 897052-11-11 20:37:00 Test Item Value Reference Range Interpretation Comments RDW (test code = RDW) 17.7 11.5-14.5 [place] 897052-11-11 20:37:00 Test Item Value Reference Range Interpretation Comments Platelet (test code = Platelet) 346 133-450 [facility] CenterFrrmbndYXQKCTRZTT5514-35-88 20:37:00 Test Item Value Reference Range Interpretation Comments MPV (test code = MPV) 6.7 7.4-10.4 [facility] CenterEfretokLTGSTNHZKS4662-19-04 20:37:00 Test Item Value Reference Range Interpretation Comments Segs (test code = Segs) 81.8 45.0-75.0 [facility] CenterSrhejofDAKEHKKXNK1697-82-85 20:37:00 Test Item Value Reference Range Interpretation Comments Lymphocytes (test code = Lymphocytes) 5.6 20.0-40.0 [place] 897052-11-11 20:37:00 Test Item Value Reference Range Interpretation Comments Monocytes (test code = Monocytes) 6.8 2.0-12.0 [place] [address]-11-11 20:37:00 Test Item Value Reference Range Interpretation Comments Eosinophils (test code = 5.3 See_Comment [A utomated message] The Eosinophils) system which ge nerated this result tra nsmitted reference range : <=4.0. The reference r za was not used to int erpret this result as normal/abnormal . [facility] CenterVlfybtxWAEJDVKHMN3482-07-77 20:37:00 Test Item Value Reference Range Interpretation Comments Basophils (test code = 0.5 See_Comment [Aut omated message] The Basophils) system which ge nerated this result tra nsmitted reference range : <=1.0. The reference r za was not used to int erpret this result as normal/abnormal . [facility] CenterKmqkvwrZTIBOXBOFT3762-76-50 20:37:00 Test Item Value Reference Range Interpretation Comments Neutrophils # (test code = Neutrophils 8.0 1.5-8.1 #) [facility] CenterPvnhcnmIXNSWSOLGV6371-88-83 20:37:00 Test Item Value Reference Range Interpretation Comments Lymphocytes # (test code = Lymphocytes 0.5 1.0-5.5 #) [facility] CenterYnmoojmQLOIMLZRIC8071-90-29 20:37:00 Test Item Value Reference Range Interpretation Comments Monocytes # (test code 0.7 See_Comment [Aut omated message] The = Monocytes #) system which generated this result tra nsmitted reference range : <=0.8. The reference r za was not used to int erpret this result as normal/abnormal . [facility] CenterJpsytnhBVYSIEOJBP5634-67-70 20:37:00 Test Item Value Reference Range Interpretation Comments Eosinophils # (test code 0.5 See_Comment [A utomated message] The = Eosinophils #) system whic h generated this result tra nsmitted reference range : <=0.5. The reference r za was not used to int erpret this result as normal/abnormal . [facility]QdrkovuVEHYLZ1505-43-40 20:59:51 Test Item Value Reference Range Interpretation [...] identified.Sekou Santiago MD On 12/19/2021 14:58:37; [id number] [facility]UfwafejMUWHMF5726-20-06 20:59:51 Test Item Value Reference Range Interpretation [...] pneumoperitoneum identified.Sekou Santiago MD On 12/19/2021 14:58:37; [id number]-[id number] [facility] AtlantaGywdiobRYHUAJ4785-92-61 20:59:51 Test Item Value Reference Range Interpretation [...] identified.Sekou Santiago MD On 12/19/2021 14:58:37; [id number] [facility]SusdqqwWSFZCG2891-24-60 20:59:51 Test Item Value Reference Range Interpretation [...] pneumoperitoneum identified.Sekou Santiago MD On 12/19/2021 14:58:37; [id number] [facility] AtlantaMlixpddCKZEMA3486-36-16 20:59:51 Test Item Value Reference Range Interpretation [...] pneumoperitoneum identified.Sekou Santiago MD On 12/19/2021 14:58:37; [id number] [facility]wallDaeafgiWGESMIECV4989-59-42 10:34:00 Test Item Value Reference Range Interpretation Comments Phosphorus (test code = Phosphorus) 3.9 2.5-4.5 [facility]wallRfdozefYXUJUZFLR1500-12-27 10:34:00 Test Item Value Reference Range Interpretation Comments Magnesium Lvl (test code = Magnesium 2.4 1.8-2.4 Lvl) [facility] RockwallMxddrokIWPKVGWLY6867-79-75 10:34:00 Test Item Value Reference Range Interpretation Comments Total Protein (test code = Total 6.2 6.4-8.4 Protein) [facility] RockwallGdlvurgRBCGTETXA8312-06-49 10:34:00 Test Item Value Reference Range Interpretation Comments Albumin Lvl (test code = Albumin Lvl) 2.9 3.5-5.0 [facility] SddwbmdYITTESJIB1806-59-33 10:34:00 Test Item Value Reference Range Interpretation Comments ALT (test code = ALT) 15 See_Comment [Auto mated message] The system which ge nerated this result transmit amado reference range : <=65. The reference range was not used to interpr et this result as miguel l/abnormal. [facility] ZhvqtvdOCXINLIQC9985-17-05 10:34:00 Test Item Value Reference Range Interpretation Comments AST (test code = AST) 20 See_Comment [Auto mated message] The system which ge nerated this result transmit amado reference range : <=37. The reference range was not used to interpr et this result as miguel l/abnormal. [facility] KalcsynABPRSSRGM0225-24-39 10:34:00 Test Item Value Reference Range Interpretation Comments Alk Phos (test code = Alk Phos) 77 39-136 [facility] AbkskqkGQETAIFCC3273-93-56 10:34:00 Test Item Value Reference Range Interpretation Comments Bili Total (test code = Bili Total) 0.4 0.2-1.3 [facility] PpadkwrALEZRBYAL0608-05-50 10:34:00 Test Item Value Reference Range Interpretation Comments Bili Direct (test code 0.1 See_Comment [Aut omated message] The = Bili Direct) system which generated this result tra nsmitted reference range : <=0.3. The reference r za was not used to int erpret this result as miguel l/abnormal. [facility] JyezedyJADOCDFOK8032-65-78 10:34:00 Test Item Value Reference Range Interpretation Comments Bili Indirect (test 0.3 See_Comment [Automa amado message] The code = Bili Indirect) system which generated this result tra nsmitted reference range : <=1.0. The reference r za was not used to int erpret this result as normal/abnormal . [facility] VvfyqsyVVDGVVSDJ6617-02-15 10:34:00 Test Item Value Reference Range Interpretation Comments Globulin (test code = Globulin) 3.3 2.7-4.2 [facility] TpkfvcrSUHHSXVLB2006-44-92 10:34:00 Test Item Value Reference Range Interpretation Comments A/G Ratio (test code = A/G Ratio) 0.9 1 0.7-1.6 [facility] VqjdpbnHQLPTORJN5467-10-34 10:34:00 Test Item Value Reference Range Interpretation Comments Phosphorus (test code = Phosphorus) 3.9 2.5-4.5 [facility] ResourcesCtqfwtwDDXDFPJZM0884-46-84 10:34:00 Test Item Value Reference Range Interpretation Comments Magnesium Lvl (test code = Magnesium 2.4 1.8-2.4 Lvl) [facility] ResourcesAqhfuwaSTUPDKWWZ0352-94-98 10:34:00 Test Item Value Reference Range Interpretation Comments Total Protein (test code = Total 6.2 6.4-8.4 Protein) [facility] ResourcesRztnexrAKHNAVUHV1544-37-64 10:34:00 Test Item Value Reference Range Interpretation Comments Albumin Lvl (test code = Albumin Lvl) 2.9 3.5-5.0 [facility] ResourcesTeayvbsJLIGUSCDO0298-91-90 10:34:00 Test Item Value Reference Range Interpretation Comments ALT (test code = ALT) 15 See_Comment [Auto mated message] The system which ge nerated this result transmit amado reference range : <=65. The reference range was not used to interpr et this result as miguel l/abnormal. [facility] ResourcesPorzygfDKDSHBADQ0775-54-92 10:34:00 Test Item Value Reference Range Interpretation Comments AST (test code = AST) 20 See_Comment [Auto mated message] The system which ge nerated this result transmit amado reference range : <=37. The reference range was not used to interpr et this result as miguel l/abnormal. [facility] UlwhjrePCXXEKNGC9547-73-33 10:34:00 Test Item Value Reference Range Interpretation Comments Alk Phos (test code = Alk Phos) 77 39-136 [facility] ResourcesGmrvxzcRYHLZEBEX4335-24-50 10:34:00 Test Item Value Reference Range Interpretation Comments Bili Total (test code = Bili Total) 0.4 0.2-1.3 [facility] ResourcesWyuibvhIVXWATIJP2899-76-40 10:34:00 Test Item Value Reference Range Interpretation Comments Bili Direct (test code 0.1 See_Comment [Aut omated message] The = Bili Direct) system which generated this result tra nsmitted reference range : <=0.3. The reference r za was not used to int erpret this result as miguel l/abnormal. [facility]jpulxfKPKQWFFAM6240-22-23 10:34:00 Test Item Value Reference Range Interpretation Comments Bili Indirect (test 0.3 See_Comment [Automa amado message] The code = Bili Indirect) system which generated this result tra nsmitted reference range : <=1.0. The reference r za was not used to int erpret this result as normal/abnormal . [facility] ResourcesYcpsbskMDOPPSUAO4604-76-59 10:34:00 Test Item Value Reference Range Interpretation Comments Globulin (test code = Globulin) 3.3 2.7-4.2 [facility] ResourcesIeyvahzJKJJOQWUH0995-17-84 10:34:00 Test Item Value Reference Range Interpretation Comments A/G Ratio (test code = A/G Ratio) 0.9 1 0.7-1.6 [facility] ResourcesIunqkenUVUGSYVVX3577-29-30 10:34:00 Test Item Value Reference Range Interpretation Comments Phosphorus (test code = Phosphorus) 3.9 2.5-4.5 [facility] ResourcesHvizxxbFROXBQHMS5782-72-60 10:34:00 Test Item Value Reference Range Interpretation Comments Magnesium Lvl (test code = Magnesium 2.4 1.8-2.4 Lvl) [facility] ResourcesLsjoejvZSRCMGNIS8495-92-33 10:34:00 Test Item Value Reference Range Interpretation Comments Total Protein (test code = Total 6.2 6.4-8.4 Protein) [facility] ResourcesXpbrakeFGFDJYHVJ3173-96-97 10:34:00 Test Item Value Reference Range Interpretation Comments Albumin Lvl (test code = Albumin Lvl) 2.9 3.5-5.0 [facility] ResourcesBmikzqdEVUPXYHWX5804-60-20 10:34:00 Test Item Value Reference Range Interpretation Comments ALT (test code = ALT) 15 See_Comment [Auto mated message] The system which ge nerated this result transmit amado reference range : <=65. The reference range was not used to interpr et this result as miguel l/abnormal. [facility] ResourcesBmqzghvOVPDVYSZK0960-77-51 10:34:00 Test Item Value Reference Range Interpretation Comments AST (test code = AST) 20 See_Comment [Auto mated message] The system which ge nerated this result transmit amado reference range : <=37. The reference range was not used to interpr et this result as miguel l/abnormal. [facility] ResourcesFdmlzbcQEUUXNNOR9208-59-94 10:34:00 Test Item Value Reference Range Interpretation Comments Alk Phos (test code = Alk Phos) 77 39-136 [facility]wallEsliexiUSJLCNAVU3120-45-60 10:34:00 Test Item Value Reference Range Interpretation Comments Bili Total (test code = Bili Total) 0.4 0.2-1.3 [facility]wallIwsnrfkMPQXAYDIB9118-41-68 10:34:00 Test Item Value Reference Range Interpretation Comments Bili Direct (test code 0.1 See_Comment [Aut omated message] The = Bili Direct) system which generated this result tra nsmitted reference range : <=0.3. The reference r za was not used to int erpret this result as miguel l/abnormal. [facility] RockwallKujgxriCVBNPFXOL6545-27-05 10:34:00 Test Item Value Reference Range Interpretation Comments Bili Indirect (test 0.3 See_Comment [Automa amado message] The code = Bili Indirect) system which generated this result tra nsmitted reference range : <=1.0. The reference r za was not used to int erpret this result as normal/abnormal . [facility] RockwallEhjlqfgULQGGNMQF0330-71-69 10:34:00 Test Item Value Reference Range Interpretation Comments Globulin (test code = Globulin) 3.3 2.7-4.2 [facility] RockwallRgxuerfNGGJNSXGB6998-57-17 10:34:00 Test Item Value Reference Range Interpretation Comments A/G Ratio (test code = A/G Ratio) 0.9 1 0.7-1.6 [facility] RockwallRyzzfziLZKNEYJSU1089-87-24 10:34:00 Test Item Value Reference Range Interpretation Comments Phosphorus (test code = Phosphorus) 3.9 2.5-4.5 [facility]QkifnksOYDOXULXK4788-61-25 10:34:00 Test Item Value Reference Range Interpretation Comments Magnesium Lvl (test code = Magnesium 2.4 1.8-2.4 Lvl) [facility]wallTteddrcVXINQOBRH7182-55-77 10:34:00 Test Item Value Reference Range Interpretation Comments Total Protein (test code = Total 6.2 6.4-8.4 Protein) [facility]wallKcgjgwjYYDYFXTDX8618-38-75 10:34:00 Test Item Value Reference Range Interpretation Comments Albumin Lvl (test code = Albumin Lvl) 2.9 3.5-5.0 [facility]wallIqklzskQONNPAFDQ2955-10-04 10:34:00 Test Item Value Reference Range Interpretation Comments ALT (test code = ALT) 15 See_Comment [Auto mated message] The system which ge nerated this result transmit amado reference range : <=65. The reference range was not used to interpr et this result as miguel l/abnormal. [facility] TrbxaokNCMMDJSNR0677-32-66 10:34:00 Test Item Value Reference Range Interpretation Comments AST (test code = AST) 20 See_Comment [Auto mated message] The system which ge nerated this result transmit amado reference range : <=37. The reference range was not used to interpr et this result as miguel l/abnormal. [facility] OmzxoocLNEESCCFH7376-43-70 10:34:00 Test Item Value Reference Range Interpretation Comments Alk Phos (test code = Alk Phos) 77 39-136 [facility] KwygtxaLJOMYSPZZ8470-16-88 10:34:00 Test Item Value Reference Range Interpretation Comments Bili Total (test code = Bili Total) 0.4 0.2-1.3 [facility] RaoisilAEIUEASEM0393-93-67 10:34:00 Test Item Value Reference Range Interpretation Comments Bili Direct (test code 0.1 See_Comment [Aut omated message] The = Bili Direct) system which generated this result tra nsmitted reference range : <=0.3. The reference r za was not used to int erpret this result as miguel l/abnormal. [facility] TguhdpwJHCWODWSB4740-49-21 10:34:00 Test Item Value Reference Range Interpretation Comments Bili Indirect (test 0.3 See_Comment [Automa amado message] The code = Bili Indirect) system which generated this result tra nsmitted reference range : <=1.0. The reference r za was not used to int erpret this result as normal/abnormal . [facility] KzqjqkrOBVRMHGBV1237-85-77 10:34:00 Test Item Value Reference Range Interpretation Comments Globulin (test code = Globulin) 3.3 2.7-4.2 [facility] YqoxuolSRRLNCEOX1451-65-92 10:34:00 Test Item Value Reference Range Interpretation Comments A/G Ratio (test code = A/G Ratio) 0.9 1 0.7-1.6 [facility] ResourcesOxxzaagLZQTZBJNT7842-64-20 10:34:00 Test Item Value Reference Range Interpretation Comments Phosphorus (test code = Phosphorus) 3.9 2.5-4.5 [facility]wallLanmziaNNYXQBOQZ8806-42-06 10:34:00 Test Item Value Reference Range Interpretation Comments Magnesium Lvl (test code = Magnesium 2.4 1.8-2.4 Lvl) [facility]wallKmtswvsDRENAHUOL9886-36-92 10:34:00 Test Item Value Reference Range Interpretation Comments Total Protein (test code = Total 6.2 6.4-8.4 Protein) [facility]wallKeqdlrdHSKSMJLJS2891-04-97 10:34:00 Test Item Value Reference Range Interpretation Comments Albumin Lvl (test code = Albumin Lvl) 2.9 3.5-5.0 [facility]wallUnqfvrqKFMIKLBAI1708-40-64 10:34:00 Test Item Value Reference Range Interpretation Comments ALT (test code = ALT) 15 See_Comment [Auto mated message] The system which ge nerated this result transmit amado reference range : <=65. The reference range was not used to interpr et this result as miguel l/abnormal. [facility]wallLeaszesMWEARSSOM5939-36-03 10:34:00 Test Item Value Reference Range Interpretation Comments AST (test code = AST) 20 See_Comment [Auto mated message] The system which ge nerated this result transmit amado reference range : <=37. The reference range was not used to interpr et this result as miguel l/abnormal. [facility]wallCvdexrdNLWCAHJBG6381-57-88 10:34:00 Test Item Value Reference Range Interpretation Comments Alk Phos (test code = Alk Phos) 77 39-136 [facility]wallTbfoxwaRZTYTLGFN2066-36-99 10:34:00 Test Item Value Reference Range Interpretation Comments Bili Total (test code = Bili Total) 0.4 0.2-1.3 [facility]wallWscolybVMTBTTCUA6157-74-95 10:34:00 Test Item Value Reference Range Interpretation Comments Bili Direct (test code 0.1 See_Comment [Aut omated message] The = Bili Direct) system which generated this result tra nsmitted reference range : <=0.3. The reference r za was not used to int erpret this result as miguel l/abnormal. [facility]wallOmeejqtQWJGWCOCF0332-99-63 10:34:00 Test Item Value Reference Range Interpretation Comments Bili Indirect (test 0.3 See_Comment [Automa amado message] The code = Bili Indirect) system which generated this result tra nsmitted reference range : <=1.0. The reference r za was not used to int erpret this result as normal/abnormal . [facility]wallDcqbkgmPAQZINKWP1693-30-27 10:34:00 Test Item Value Reference Range Interpretation Comments Globulin (test code = Globulin) 3.3 2.7-4.2 [facility]wallApcmlsfQOCLGTSZH6773-79-82 10:34:00 Test Item Value Reference Range Interpretation Comments A/G Ratio (test code = A/G Ratio) 0.9 1 0.7-1.6 [facility] DFFBMDX2784-62-87 13:09:00 Test Item Value Reference Range Interpretation Comments RBC product (test code Product available = RBC product) 3(12/18/21 7:09 AM) [facility] [id number] 13:09:00 Test Item Value Reference Range Interpretation Comments RBC product (test code Product available = RBC product) 3(12/18/21 7:09 AM) [facility] [id number] 13:09:00 Test Item Value Reference Range Interpretation Comments RBC product (test code Product available = RBC product) 3(12/18/21 7:09 AM) [facility] [id number] 13:09:00 Test Item Value Reference Range Interpretation Comments RBC product (test code Product available = RBC product) 3(12/18/21 7:09 AM) [facility] [id number] 13:09:00 Test Item Value Reference Range Interpretation Comments RBC product (test code Product available = RBC product) 3(12/18/21 7:09 AM) [facility]SakrcbeTEENMF2223-34-49 11:40:13 Test Item Value Reference Range Interpretation Comments RADRPT (test code PROCEDURE INFORMATION: = RADRPT) Exam: US Duplex Lower Extremity Veins, Bilateral Exam date and time: 12/17/2021 4:28 AM Age: 76 years old Clinical indication: /r/o dvt TECHNIQUE: Imaging protocol: Real-time Duplex ultrasound of the bilateral extremities with 2-D chaves scale, color Doppler flow and spectral waveform [...] thrombosis. Nazia Sanford MD On 12/17/2021 05:39:24; [id number] [facility] AtlantaKczulgoHRBYVW9899-95-65 11:40:13 Test Item Value Reference Range Interpretation Comments RADRPT (test code PROCEDURE INFORMATION: = RADRPT) Exam: US Duplex Lower Extremity Veins, Bilateral Exam date and time: 12/17/2021 4:28 AM Age: 76 years old Clinical indication: /r/o dvt TECHNIQUE: Imaging protocol: Real-time Duplex ultrasound of the bilateral extremities with 2-D chaves scale, color Doppler flow and spectral waveform [...] thrombosis. Nazia Sanford MD On 12/17/2021 05:39:24; [id number] [facility] CenterGdwlwdxBXKHHW5346-25-53 11:40:13 Test Item Value Reference Range Interpretation Comments RADRPT (test code PROCEDURE INFORMATION: = RADRPT) Exam: US Duplex Lower Extremity Veins, Bilateral Exam date and time: 12/17/2021 4:28 AM Age: 76 years old Clinical indication: /r/o dvt TECHNIQUE: Imaging protocol: Real-time Duplex ultrasound of the bilateral extremities with 2-D chaves scale, color Doppler flow and spectral waveform [...] thrombosis. Nazia Sanford MD On 12/17/2021 05:39:24; [id number] [facility] CenterKvuvkgnMUBEXZ8745-96-60 11:40:13 Test Item Value Reference Range Interpretation Comments RADRPT (test code PROCEDURE INFORMATION: = RADRPT) Exam: US Duplex Lower Extremity Veins, Bilateral Exam date and time: 12/17/2021 4:28 AM Age: 76 years old Clinical indication: /r/o dvt TECHNIQUE: Imaging protocol: Real-time Duplex ultrasound of the bilateral extremities with 2-D chaves scale, color Doppler flow and spectral waveform [...] thrombosis. Nazia Sanford MD On 12/17/2021 05:39:24; [id number] [facility] AtlantaEvmihjnTCQKTT6829-59-87 11:40:13 Test Item Value Reference Range Interpretation Comments RADRPT (test code PROCEDURE INFORMATION: = RADRPT) Exam: US Duplex Lower Extremity Veins, Bilateral Exam date and time: 12/17/2021 4:28 AM Age: 76 years old Clinical indication: /r/o dvt TECHNIQUE: Imaging protocol: Real-time Duplex ultrasound of the bilateral extremities with 2-D chaves scale, color Doppler flow and spectral waveform [...] thrombosis. Nazia Sanford MD On 12/17/2021 05:39:24; [id number] [facility] [id number] 01:41:00 Test Item Value Reference Range Interpretation Comments Source Respiratory Nasophrngl Swb Panel PCR (test code = *NA*(12/16/21 8:41 PM) Source Respiratory Panel PCR) [facility]2022-11-06 01:41:00 Test Item Value Reference Range Interpretation Comments Influenza A PCR (test Negative *NA*(12/16/21 code = Influenza A PCR) 8:41 PM) [facility] [id number] 01:41:00 Test Item Value Reference Range Interpretation Comments Influenza B PCR (test Negative *NA*(12/16/21 code = Influenza B PCR) 8:41 PM) [facility]2022-11-06 01:41:00 Test Item Value Reference Range Interpretation Comments RSV PCR (test code = Negative *NA*(12/16/21 RSV PCR) 8:41 PM) [facility]2022-11-06 01:41:00 Test Item Value Reference Range Interpretation Comments Source Respiratory Nasophrngl Swb Panel PCR (test code = *NA*(12/16/21 8:41 PM) Source Respiratory Panel PCR) [facility]2022-11-06 01:41:00 Test Item Value Reference Range Interpretation Comments Influenza A PCR (test Negative *NA*(12/16/21 code = Influenza A PCR) 8:41 PM) [facility]2022-11-06 01:41:00 Test Item Value Reference Range Interpretation Comments Influenza B PCR (test Negative *NA*(12/16/21 code = Influenza B PCR) 8:41 PM) [facility]2022-11-06 01:41:00 Test Item Value Reference Range Interpretation Comments RSV PCR (test code = Negative *NA*(12/16/21 RSV PCR) 8:41 PM) [facility]2022-11-06 01:41:00 Test Item Value Reference Range Interpretation Comments Source Respiratory Nasophrngl Swb Panel PCR (test code = *NA*(12/16/21 8:41 PM) Source Respiratory Panel PCR) [facility]2022-11-06 01:41:00 Test Item Value Reference Range Interpretation Comments Influenza A PCR (test Negative *NA*(12/16/21 code = Influenza A PCR) 8:41 PM) [facility]2022-11-06 01:41:00 Test Item Value Reference Range Interpretation Comments Influenza B PCR (test Negative *NA*(12/16/21 code = Influenza B PCR) 8:41 PM) [facility]2022-11-06 01:41:00 Test Item Value Reference Range Interpretation Comments RSV PCR (test code = Negative *NA*(12/16/21 RSV PCR) 8:41 PM) [facility]2022-11-06 01:41:00 Test Item Value Reference Range Interpretation Comments Source Respiratory Nasophrngl Swb Panel PCR (test code = *NA*(12/16/21 8:41 PM) Source Respiratory Panel PCR) [facility] [id number] 01:41:00 Test Item Value Reference Range Interpretation Comments Influenza A PCR (test Negative *NA*(12/16/21 code = Influenza A PCR) 8:41 PM) [facility]2022-11-06 01:41:00 Test Item Value Reference Range Interpretation Comments Influenza B PCR (test Negative *NA*(12/16/21 code = Influenza B PCR) 8:41 PM) [facility]2022-11-06 01:41:00 Test Item Value Reference Range Interpretation Comments RSV PCR (test code = Negative *NA*(12/16/21 RSV PCR) 8:41 PM) [facility]2022-11-06 01:41:00 Test Item Value Reference Range Interpretation Comments Source Respiratory Nasophrngl Swb Panel PCR (test code = *NA*(12/16/21 8:41 PM) Source Respiratory Panel PCR) [facility]2022-11-06 01:41:00 Test Item Value Reference Range Interpretation Comments Influenza A PCR (test Negative *NA*(12/16/21 code = Influenza A PCR) 8:41 PM) [facility]2022-11-06 01:41:00 Test Item Value Reference Range Interpretation Comments Influenza B PCR (test Negative *NA*(12/16/21 code = Influenza B PCR) 8:41 PM) [facility]2022-11-06 01:41:00 Test Item Value Reference Range Interpretation Comments RSV PCR (test code = Negative *NA*(12/16/21 RSV PCR) 8:41 PM) [facility] CenterBdakchsYUHHGO0730-89-21 01:08:35 Test Item Value Reference Range Interpretation [...] arteries: Surgically absent right main renal artery. Thye-hn-mpyiqmhf atherosclerosis in narrowing in the left main renal artery. Right iliac arteries: Ongg-fd-hsudfdbm atherosclerosis throughout the right common iliac artery, right external iliac artery, and right internal iliac artery causing mild multifocal narrowing. Left iliac arteries: Rcft-xg-wqwgwywt atherosclerosis throughout the left common iliac artery, [...] arthrosis associated with multilevel disc bulges causing uhwo-xq-bcgmxpou spinal canal narrowing and neural foraminal narrowing [...] and understood.Anoop Mays MD On 12/16/2021 20:07:19; [id number] [facility]CkvghugLPNMCC2080-47-67 01:08:35 Test Item Value Reference Range Interpretation [...] arteries: Surgically absent right main renal artery. Kmvv-nn-tahaimhl atherosclerosis in narrowing in the left main renal artery. Right iliac arteries: Plrc-zr-yktvxwep atherosclerosis throughout the right common iliac artery, right external iliac artery, and right internal iliac artery causing mild multifocal narrowing. Left iliac arteries: Fipw-nl-dpvsjbne atherosclerosis throughout the left common iliac artery, [...] arthrosis associated with multilevel disc bulges causing cakt-sh-rrlvnqsq spinal canal narrowing and neural foraminal narrowing [...] and understood.Anoop Mays MD On 12/16/2021 20:07:19; [id number] [facility] CenterIcrcwwoGDIIXT6670-27-45 01:08:35 Test Item Value Reference Range Interpretation [...] arteries: Surgically absent right main renal artery. Tqmv-bf-yyqfcpvd atherosclerosis in narrowing in the left main renal artery. Right iliac arteries: Omhy-qd-jzjcbjzx atherosclerosis throughout the right common iliac artery, right external iliac artery, and right internal iliac artery causing mild multifocal narrowing. Left iliac arteries: Ghsu-be-krtlntvq atherosclerosis throughout the left common iliac artery, [...] arthrosis associated with multilevel disc bulges causing abhq-dx-skqfkvzh spinal canal narrowing and neural foraminal narrowing [...] and understood.Anoop Mays MD On 12/16/2021 20:07:19; [id number] [facility] CenterEvargdaIZEXGJ4610-57-24 01:08:35 Test Item Value Reference Range Interpretation [...] arteries: Surgically absent right main renal artery. Tuwz-ca-kihzjvgs atherosclerosis in narrowing in the left main renal artery. Right iliac arteries: Nipt-kq-dxzrbdqa atherosclerosis throughout the right common iliac artery, right external iliac artery, and right internal iliac artery causing mild multifocal narrowing. Left iliac arteries: Ftqh-kv-xreefudq atherosclerosis throughout the left common iliac artery, [...] arthrosis associated with multilevel disc bulges causing rgfn-qb-yoyiuhpo spinal canal narrowing and neural foraminal narrowing [...] and understood.Anoop Mays MD On 12/16/2021 20:07:19; [id number] [facility] CenterOainkxcZISBWL5340-04-11 01:08:35 Test Item Value Reference Range Interpretation [...] arteries: Surgically absent right main renal artery. Ohbd-ag-pnfhcvzu atherosclerosis in narrowing in the left main renal artery. Right iliac arteries: Diua-wu-fwqqjbvq atherosclerosis throughout the right common iliac artery, right external iliac artery, and right internal iliac artery causing mild multifocal narrowing. Left iliac arteries: Qusg-ud-anibhtmr atherosclerosis throughout the left common iliac artery, [...] arthrosis associated with multilevel disc bulges causing thzc-fv-pbhxtdse spinal canal narrowing and neural foraminal narrowing [...] and understood.Anoop Mays MD On 12/16/2021 20:07:19; [id number] [facility]NtrozjxLTHDLIXJK9815-50-99 16:02:00 Test Item Value Reference Range Interpretation Comments Hgb A1C (test code = Hgb A1C) 5.1 [facility]wallIrxxhezFBDXAIBYV1657-69-60 16:02:00 Test Item Value Reference Range Interpretation Comments LDL (Calculated) (test code = LDL 37 (Calculated)) [facility]wallAuifopqOZPWLJABV7507-55-20 16:02:00 Test Item Value Reference Range Interpretation Comments VLDL (test code = VLDL) 39 1 [facility]wallJniivzgZSJMXWSET8429-79-52 16:02:00 Test Item Value Reference Range Interpretation Comments Trig (test code = Trig) 195 [facility]wallUkdyvpsBRJOKJPYA6343-38-48 16:02:00 Test Item Value Reference Range Interpretation Comments Chol (test code = Chol) 101 [facility]wallQafxsdiJLUGTMJZT4107-60-55 16:02:00 Test Item Value Reference Range Interpretation Comments HDL (test code = HDL) 25 [facility]wallIilvyzuWFINWGNLV6635-32-12 16:02:00 Test Item Value Reference Range Interpretation Comments Chol/HDL Ratio (test code = Chol/HDL 4.04 1 4.00-7.30 Ratio) [facility]wallOaylqbwBQXLVEUFS1132-40-01 16:02:00 Test Item Value Reference Range Interpretation Comments TSH (test code = TSH) 0.890 0.360-3.740 [place] [address]-11-05 16:02:00 Test Item Value Reference Range Interpretation Comments Lactic Acid Lvl (test code = Lactic 1.2 0.5-2.2 Acid Lvl) [place] 897052-11-05 16:02:00 Test Item Value Reference Range Interpretation Comments PTT (test code = PTT) 32.8 s 22.9-35.8 [place] 897052-11-05 16:02:00 Test Item Value Reference Range Interpretation Comments PT (test code = PT) 15.8 s 12.0-14.7 [place] [address]-11-05 16:02:00 Test Item Value Reference Range Interpretation Comments INR (test code = INR) 1.27 1 0.85-1.17 [place] [address]-11-05 16:02:00 Test Item Value Reference Range Interpretation Comments Hep A IgM (test code = Hep A NON-REACTIVE IgM) [place] [address]-11-05 16:02:00 Test Item Value Reference Range Interpretation Comments Hep Bs Ag (test code = Hep Bs NON-REACTIVE Ag) [place] [address]-11-05 16:02:00 Test Item Value Reference Range Interpretation Comments Hep B Core IgM (test code = Hep NON-REACTIVE B Core IgM) [place] [address]-11-05 16:02:00 Test Item Value Reference Range Interpretation Comments Hep C Ab (test code = Hep C Ab) NON-REACTIVE [place] [address]-11-05 16:02:00 Test Item Value Reference Range Interpretation Comments Hep Signal to Cut-Off (test code = Hep no gt Signal to Cut-Off) [place] 876892-11-05 16:02:00 Test Item Value Reference Range Interpretation Comments Lipase Lvl (test code = Lipase Lvl) 99 73-393 [place] [address]-11-05 16:02:00 Test Item Value Reference Range Interpretation Comments Procalcitonin Lvl (test 0.99 See_Comment [Au tomated message] code = Procalcitonin Lvl) Th e system which generated this result transmitted ref erence range: <=0.10. The reference range was not used to interpr et this result as normal/abnormal . [place] 876892-11-05 16:02:00 Test Item Value Reference Range Interpretation Comments Ketone Quantitative (test code = Ketone 0.44 Quantitative) [place] 876892-11-05 16:02:00 Test Item Value Reference Range Interpretation Comments Ethanol Lvl (test code = Ethanol <3.0 mg/dL Lvl) [address]11-05 16:02:00 Test Item Value Reference Range Interpretation Comments Etoh (%) (test code = Etoh (%)) <0.003 % [place] [address]-11-05 16:02:00 Test Item Value Reference Range Interpretation Comments Hgb A1C (test code = Hgb A1C) 5.1 [place] [address]-11-05 16:02:00 Test Item Value Reference Range Interpretation Comments LDL (Calculated) (test code = LDL 37 (Calculated)) [address]11-05 16:02:00 Test Item Value Reference Range Interpretation Comments VLDL (test code = VLDL) 39 1 [place] 876892-11-05 16:02:00 Test Item Value Reference Range Interpretation Comments Trig (test code = Trig) 195 [place] [address]-11-05 16:02:00 Test Item Value Reference Range Interpretation Comments Chol (test code = Chol) 101 [place] [address]-11-05 16:02:00 Test Item Value Reference Range Interpretation Comments HDL (test code = HDL) 25 [place] [address]-11-05 16:02:00 Test Item Value Reference Range Interpretation Comments Chol/HDL Ratio (test code = Chol/HDL 4.04 1 4.00-7.30 Ratio) [place] [address]-11-05 16:02:00 Test Item Value Reference Range Interpretation Comments TSH (test code = TSH) 0.890 0.360-3.740 [place] [address]-11-05 16:02:00 Test Item Value Reference Range Interpretation Comments Lactic Acid Lvl (test code = Lactic 1.2 0.5-2.2 Acid Lvl) [place] [address]-11-05 16:02:00 Test Item Value Reference Range Interpretation Comments PTT (test code = PTT) 32.8 s 22.9-35.8 [place] [address]-11-05 16:02:00 Test Item Value Reference Range Interpretation Comments PT (test code = PT) 15.8 s 12.0-14.7 [facility]EcrpptdMRWMFWQDBE0057-62-57 16:02:00 Test Item Value Reference Range Interpretation Comments INR (test code = INR) 1.27 1 0.85-1.17 [place] 764682-11-05 16:02:00 Test Item Value Reference Range Interpretation Comments Hep A IgM (test code = Hep A NON-REACTIVE IgM) [facility]KuylnooWMGCUZSNUS5634-19-25 16:02:00 Test Item Value Reference Range Interpretation Comments Hep Bs Ag (test code = Hep Bs NON-REACTIVE Ag) [facility] CenterTgpvpoeNAHZJUEMYN8917-99-23 16:02:00 Test Item Value Reference Range Interpretation Comments Hep B Core IgM (test code = Hep NON-REACTIVE B Core IgM) [facility] CenterDtrtorbQRHJAIYEMW9804-61-79 16:02:00 Test Item Value Reference Range Interpretation Comments Hep C Ab (test code = Hep C Ab) NON-REACTIVE [facility] CenterViwjmfhFJQIGAZNQE0099-32-88 16:02:00 Test Item Value Reference Range Interpretation Comments Hep Signal to Cut-Off (test code = Hep no gt Signal to Cut-Off) [facility]wallJihxeouPLVJIPAKM1755-19-71 16:02:00 Test Item Value Reference Range Interpretation Comments Lipase Lvl (test code = Lipase Lvl) 99 73-393 [facility]wallXhhlouyPDAXJUHQX9971-60-52 16:02:00 Test Item Value Reference Range Interpretation Comments Procalcitonin Lvl (test 0.99 See_Comment [Au tomated message] code = Procalcitonin Lvl) Th e system which generated this result transmitted ref erence range: <=0.10. The reference range was not used to interpr et this result as normal/abnormal . [facility]wallPtxuvwwPQSICQRBC1267-00-42 16:02:00 Test Item Value Reference Range Interpretation Comments Ketone Quantitative (test code = Ketone 0.44 Quantitative) [place] 876892-11-05 16:02:00 Test Item Value Reference Range Interpretation Comments Ethanol Lvl (test code = Ethanol <3.0 mg/dL Lvl) [facility]wallStjkidnRUDMXSBSN0607-56-51 16:02:00 Test Item Value Reference Range Interpretation Comments Etoh (%) (test code = Etoh (%)) <0.003 % [place] 876892-11-05 16:02:00 Test Item Value Reference Range Interpretation Comments Hgb A1C (test code = Hgb A1C) 5.1 [facility]PceqjxrJIOYMCVCR0635-15-40 16:02:00 Test Item Value Reference Range Interpretation Comments LDL (Calculated) (test code = LDL 37 (Calculated)) [place] [address]-11-05 16:02:00 Test Item Value Reference Range Interpretation Comments VLDL (test code = VLDL) 39 1 [place] 876892-11-05 16:02:00 Test Item Value Reference Range Interpretation Comments Trig (test code = Trig) 195 [place] [address]-11-05 16:02:00 Test Item Value Reference Range Interpretation Comments Chol (test code = Chol) 101 [facility]wallCzkqnfmMYPYYEAZK9889-64-08 16:02:00 Test Item Value Reference Range Interpretation Comments HDL (test code = HDL) 25 [place] 876892-11-05 16:02:00 Test Item Value Reference Range Interpretation Comments Chol/HDL Ratio (test code = Chol/HDL 4.04 1 4.00-7.30 Ratio) [facility]wallBvmqzogSEGVRLTMV9710-73-30 16:02:00 Test Item Value Reference Range Interpretation Comments TSH (test code = TSH) 0.890 0.360-3.740 [place] 876892-11-05 16:02:00 Test Item Value Reference Range Interpretation Comments Lactic Acid Lvl (test code = Lactic 1.2 0.5-2.2 Acid Lvl) [place] 897052-11-05 16:02:00 Test Item Value Reference Range Interpretation Comments PTT (test code = PTT) 32.8 s 22.9-35.8 [place] [address]-11-05 16:02:00 Test Item Value Reference Range Interpretation Comments PT (test code = PT) 15.8 s 12.0-14.7 [place] [address]-11-05 16:02:00 Test Item Value Reference Range Interpretation Comments INR (test code = INR) 1.27 1 0.85-1.17 [place] [address]-11-05 16:02:00 Test Item Value Reference Range Interpretation Comments Hep A IgM (test code = Hep A NON-REACTIVE IgM) [place] 764682-11-05 16:02:00 Test Item Value Reference Range Interpretation Comments Hep Bs Ag (test code = Hep Bs NON-REACTIVE Ag) [facility]JhkydloTHBCVUGOXV2001-64-78 16:02:00 Test Item Value Reference Range Interpretation Comments Hep B Core IgM (test code = Hep NON-REACTIVE B Core IgM) [place] 764682-11-05 16:02:00 Test Item Value Reference Range Interpretation Comments Hep C Ab (test code = Hep C Ab) NON-REACTIVE [facility] CenterZpqgckfXXJAGNWPLV0250-45-37 16:02:00 Test Item Value Reference Range Interpretation Comments Hep Signal to Cut-Off (test code = Hep no gt Signal to Cut-Off) [facility]wallPvudyetMMFGJJGGM5168-61-05 16:02:00 Test Item Value Reference Range Interpretation Comments Lipase Lvl (test code = Lipase Lvl) 99 73-393 [facility]wallZqmzxxnYMJPQCIML5602-19-00 16:02:00 Test Item Value Reference Range Interpretation Comments Procalcitonin Lvl (test 0.99 See_Comment [Au tomated message] code = Procalcitonin Lvl) e system which generated this result transmitted ref erence range: <=0.10. The reference range was not used to interpr et this result as normal/abnormal . [facility]wallQojbqydVHXNWYMJN6470-29-44 16:02:00 Test Item Value Reference Range Interpretation Comments Ketone Quantitative (test code = Ketone 0.44 Quantitative) [facility]wallOhmljgqLAXSPBKOM8663-11-07 16:02:00 Test Item Value Reference Range Interpretation Comments Ethanol Lvl (test code = Ethanol <3.0 mg/dL Lvl) [facility]wallZrcxzjqQBLMRRHOW4520-36-59 16:02:00 Test Item Value Reference Range Interpretation Comments Etoh (%) (test code = Etoh (%)) <0.003 % [facility]wallWkwyeflVBVGHSEKU5947-36-30 16:02:00 Test Item Value Reference Range Interpretation Comments Hgb A1C (test code = Hgb A1C) 5.1 [facility]wallUthpxtlUAJGOCZCI0706-10-51 16:02:00 Test Item Value Reference Range Interpretation Comments LDL (Calculated) (test code = LDL 37 (Calculated)) [facility]wallJauijtwSRTUDKBLG6225-02-99 16:02:00 Test Item Value Reference Range Interpretation Comments VLDL (test code = VLDL) 39 1 [place] 876892-11-05 16:02:00 Test Item Value Reference Range Interpretation Comments Trig (test code = Trig) 195 [facility]wallVpjpaknNPHAMBLTH5715-54-58 16:02:00 Test Item Value Reference Range Interpretation Comments Chol (test code = Chol) 101 [facility]wallZxtdrpnQXVXPBRMM3294-33-86 16:02:00 Test Item Value Reference Range Interpretation Comments HDL (test code = HDL) 25 [facility]wallJrvcbllVWXOQIUGP6011-53-35 16:02:00 Test Item Value Reference Range Interpretation Comments Chol/HDL Ratio (test code = Chol/HDL 4.04 1 4.00-7.30 Ratio) [facility]wallOdxyyyoPHZSRHDTM8858-56-89 16:02:00 Test Item Value Reference Range Interpretation Comments TSH (test code = TSH) 0.890 0.360-3.740 [facility]wallAiiqcwfXOOKPSASS4037-27-22 16:02:00 Test Item Value Reference Range Interpretation Comments Lactic Acid Lvl (test code = Lactic 1.2 0.5-2.2 Acid Lvl) [facility] CenterOnxrlzaYWCEIWOQGQ4449-71-38 16:02:00 Test Item Value Reference Range Interpretation Comments PTT (test code = PTT) 32.8 s 22.9-35.8 [facility] CenterHhqqoseZPDRFECTZD7535-14-48 16:02:00 Test Item Value Reference Range Interpretation Comments PT (test code = PT) 15.8 s 12.0-14.7 [place] [address]-11-05 16:02:00 Test Item Value Reference Range Interpretation Comments INR (test code = INR) 1.27 1 0.85-1.17 [place] 764682-11-05 16:02:00 Test Item Value Reference Range Interpretation Comments Hep A IgM (test code = Hep A NON-REACTIVE IgM) [facility] CenterIvrsixaEGAMOUZFXR8574-12-44 16:02:00 Test Item Value Reference Range Interpretation Comments Hep Bs Ag (test code = Hep Bs NON-REACTIVE Ag) [facility] CenterPpfpickGDSKKPMWJA5090-74-74 16:02:00 Test Item Value Reference Range Interpretation Comments Hep B Core IgM (test code = Hep NON-REACTIVE B Core IgM) [facility] CenterCfmjsioSMPOFZIUTY2041-10-34 16:02:00 Test Item Value Reference Range Interpretation Comments Hep C Ab (test code = Hep C Ab) NON-REACTIVE [place] 764682-11-05 16:02:00 Test Item Value Reference Range Interpretation Comments Hep Signal to Cut-Off (test code = Hep no gt Signal to Cut-Off) [facility]wallXvtjeayHZXBIKQSX3338-74-22 16:02:00 Test Item Value Reference Range Interpretation Comments Lipase Lvl (test code = Lipase Lvl) 99 73-393 [facility]wallBfgkmxwUNAKYIBTG7320-92-51 16:02:00 Test Item Value Reference Range Interpretation Comments Procalcitonin Lvl (test 0.99 See_Comment [Au tomated message] code = Procalcitonin Lvl) Th e system which generated this result transmitted ref erence range: <=0.10. The reference range was not used to interpr et this result as normal/abnormal . [facility]wallSabmokgWRENKKVIF0185-86-20 16:02:00 Test Item Value Reference Range Interpretation Comments Ketone Quantitative (test code = Ketone 0.44 Quantitative) [place] 876892-11-05 16:02:00 Test Item Value Reference Range Interpretation Comments Ethanol Lvl (test code = Ethanol <3.0 mg/dL Lvl) [facility]wallBmvfxsoCZHKUADFU9106-36-87 16:02:00 Test Item Value Reference Range Interpretation Comments Etoh (%) (test code = Etoh (%)) <0.003 % [facility]wallWvuktcqJLKPFJXQF5182-18-72 16:02:00 Test Item Value Reference Range Interpretation Comments Hgb A1C (test code = Hgb A1C) 5.1 [facility]wallDbeevdcMPMHJTFKR1108-34-83 16:02:00 Test Item Value Reference Range Interpretation Comments LDL (Calculated) (test code = LDL 37 (Calculated)) [place] [address]-11-05 16:02:00 Test Item Value Reference Range Interpretation Comments VLDL (test code = VLDL) 39 1 [place] [address]-11-05 16:02:00 Test Item Value Reference Range Interpretation Comments Trig (test code = Trig) 195 [facility]wallRmeyovzWKHJUMVBY2549-93-11 16:02:00 Test Item Value Reference Range Interpretation Comments Chol (test code = Chol) 101 [facility]wallHqxmlmpQUFNSGNSF0314-02-38 16:02:00 Test Item Value Reference Range Interpretation Comments HDL (test code = HDL) 25 [place] 876892-11-05 16:02:00 Test Item Value Reference Range Interpretation Comments Chol/HDL Ratio (test code = Chol/HDL 4.04 1 4.00-7.30 Ratio) [facility]wallGgbjyycCTKUIZPQG7375-53-50 16:02:00 Test Item Value Reference Range Interpretation Comments TSH (test code = TSH) 0.890 0.360-3.740 [place] [address]-11-05 16:02:00 Test Item Value Reference Range Interpretation Comments Lactic Acid Lvl (test code = Lactic 1.2 0.5-2.2 Acid Lvl) [facility] CenterSdplycqXKKOSLNAWW8585-43-15 16:02:00 Test Item Value Reference Range Interpretation Comments PTT (test code = PTT) 32.8 s 22.9-35.8 [place] [address]-11-05 16:02:00 Test Item Value Reference Range Interpretation Comments PT (test code = PT) 15.8 s 12.0-14.7 [place] [address]-11-05 16:02:00 Test Item Value Reference Range Interpretation Comments INR (test code = INR) 1.27 1 0.85-1.17 [place] [address]-11-05 16:02:00 Test Item Value Reference Range Interpretation Comments Hep A IgM (test code = Hep A NON-REACTIVE IgM) [place] [address]-11-05 16:02:00 Test Item Value Reference Range Interpretation Comments Hep Bs Ag (test code = Hep Bs NON-REACTIVE Ag) [place] [address]-11-05 16:02:00 Test Item Value Reference Range Interpretation Comments Hep B Core IgM (test code = Hep NON-REACTIVE B Core IgM) [place] [address]-11-05 16:02:00 Test Item Value Reference Range Interpretation Comments Hep C Ab (test code = Hep C Ab) NON-REACTIVE [place] [address]-11-05 16:02:00 Test Item Value Reference Range Interpretation Comments Hep Signal to Cut-Off (test code = Hep no gt Signal to Cut-Off) [place] [address]-11-05 16:02:00 Test Item Value Reference Range Interpretation Comments Lipase Lvl (test code = Lipase Lvl) 99 73-393 [place] 876892-11-05 16:02:00 Test Item Value Reference Range Interpretation Comments Procalcitonin Lvl (test 0.99 See_Comment [Au tomated message] code = Procalcitonin Lvl) Th e system which generated this result transmitted ref erence range: <=0.10. The reference range was not used to interpr et this result as normal/abnormal . [facility]wallDaeqidpMTDNHJIEB7594-60-80 16:02:00 Test Item Value Reference Range Interpretation Comments Ketone Quantitative (test code = Ketone 0.44 Quantitative) [facility]wallPnlalxhXRNMBDNOO6804-56-80 16:02:00 Test Item Value Reference Range Interpretation Comments Ethanol Lvl (test code = Ethanol <3.0 mg/dL Lvl) [facility]wallXvijaoaVCJNNCCHJ1058-82-60 16:02:00 Test Item Value Reference Range Interpretation Comments Etoh (%) (test code = Etoh (%)) <0.003 % [facility] IIINTVY1485-81-02 11:52:00 Test Item Value Reference Range Interpretation Comments ABO/Rh (test code = ABO/Rh) O POS [facility] BMUGNQG5169-28-39 11:52:00 Test Item Value Reference Range Interpretation Comments Antibody Scrn (test Negative (12/16/21 6:52 code = Antibody Scrn) AM) [facility] CenterDfvnyekMYFMRRONP5096-75-42 11:52:00 Test Item Value Reference Range Interpretation Comments Ca Ion WB (test code = Ca Ion WB) 1.05 1.05-1.25 [facility] CenterWxyeayvDFENHUILM9571-88-43 11:52:00 Test Item Value Reference Range Interpretation Comments Ca Ion at pH 7.4 WB (test code = Ca Ion 1.07 1.05-1.25 at pH 7.4 WB) [facility] CenterLjgcckbZNEETCNNVC4133-08-40 11:52:00 Test Item Value Reference Range Interpretation Comments RBC Morph (test code = Normal (12/16/21 6:52 RBC Morph) AM) [facility] CenterUksrbprYQVYDNGQWQ4039-64-76 11:52:00 Test Item Value Reference Range Interpretation Comments Plt Morph (test code = Normal (12/16/21 6:52 Plt Morph) AM) [facility] TWGDNSU3395-77-42 11:52:00 Test Item Value Reference Range Interpretation Comments ABO/Rh (test code = ABO/Rh) O POS [facility] DZVHWCD0784-01-27 11:52:00 Test Item Value Reference Range Interpretation Comments Antibody Scrn (test Negative (12/16/21 6:52 code = Antibody Scrn) AM) [facility]wallUsmpqcsQDXBREQLA6805-63-09 11:52:00 Test Item Value Reference Range Interpretation Comments Ca Ion WB (test code = Ca Ion WB) 1.05 1.05-1.25 [facility]wallPwuqdjtXESHASXNX1886-57-74 11:52:00 Test Item Value Reference Range Interpretation Comments Ca Ion at pH 7.4 WB (test code = Ca Ion 1.07 1.05-1.25 at pH 7.4 WB) [facility] CenterYkaowrcUWRMHDJZZI3353-88-34 11:52:00 Test Item Value Reference Range Interpretation Comments RBC Morph (test code = Normal (12/16/21 6:52 RBC Morph) AM) [facility] CenterWbddcsnQVNOIRNMZO3714-69-14 11:52:00 Test Item Value Reference Range Interpretation Comments Plt Morph (test code = Normal (12/16/21 6:52 Plt Morph) AM) [facility] IZLMBLN0487-80-54 11:52:00 Test Item Value Reference Range Interpretation Comments ABO/Rh (test code = ABO/Rh) O POS [facility] AUJKLRL0662-38-24 11:52:00 Test Item Value Reference Range Interpretation Comments Antibody Scrn (test Negative (12/16/21 6:52 code = Antibody Scrn) AM) [facility]wallLzrzhzjQPLTCKDHJ6653-34-02 11:52:00 Test Item Value Reference Range Interpretation Comments Ca Ion WB (test code = Ca Ion WB) 1.05 1.05-1.25 [facility]wallQselducOMDFWACTW4305-79-92 11:52:00 Test Item Value Reference Range Interpretation Comments Ca Ion at pH 7.4 WB (test code = Ca Ion 1.07 1.05-1.25 at pH 7.4 WB) [facility] CenterTcehwxvKBPZSXSQNF0796-94-27 11:52:00 Test Item Value Reference Range Interpretation Comments RBC Morph (test code = Normal (12/16/21 6:52 RBC Morph) AM) [facility] CenterQaudpxhGGBJECRCGW5825-03-34 11:52:00 Test Item Value Reference Range Interpretation Comments Plt Morph (test code = Normal (12/16/21 6:52 Plt Morph) AM) [facility] CARNUPP7636-00-12 11:52:00 Test Item Value Reference Range Interpretation Comments ABO/Rh (test code = ABO/Rh) O POS [facility] TQDTPEP1319-74-52 11:52:00 Test Item Value Reference Range Interpretation Comments Antibody Scrn (test Negative (12/16/21 6:52 code = Antibody Scrn) AM) [facility]wallSylgqcgVIMHTQEMC9634-19-72 11:52:00 Test Item Value Reference Range Interpretation Comments Ca Ion WB (test code = Ca Ion WB) 1.05 1.05-1.25 [facility]wallVzepwccNSXXFRGCN2896-18-33 11:52:00 Test Item Value Reference Range Interpretation Comments Ca Ion at pH 7.4 WB (test code = Ca Ion 1.07 1.05-1.25 at pH 7.4 WB) [facility] CenterAdeatfvSHQXOKLYUL6839-80-00 11:52:00 Test Item Value Reference Range Interpretation Comments RBC Morph (test code = Normal (12/16/21 6:52 RBC Morph) AM) [facility] CenterVxmxkvnOGYWYSEKTM8130-96-02 11:52:00 Test Item Value Reference Range Interpretation Comments Plt Morph (test code = Normal (12/16/21 6:52 Plt Morph) AM) [facility] QIZMAYZ1935-15-76 11:52:00 Test Item Value Reference Range Interpretation Comments ABO/Rh (test code = ABO/Rh) O POS [facility] MFRACVR4961-44-67 11:52:00 Test Item Value Reference Range Interpretation Comments Antibody Scrn (test Negative (12/16/21 6:52 code = Antibody Scrn) AM) [facility]wallRxbnmhbABDGJBRJS0937-29-84 11:52:00 Test Item Value Reference Range Interpretation Comments Ca Ion WB (test code = Ca Ion WB) 1.05 1.05-1.25 [facility]wallApwwnosNUEXUPERY1925-99-50 11:52:00 Test Item Value Reference Range Interpretation Comments Ca Ion at pH 7.4 WB (test code = Ca Ion 1.07 1.05-1.25 at pH 7.4 WB) [facility] CenterEhfjxreJTEXJUMEUM5778-79-90 11:52:00 Test Item Value Reference Range Interpretation Comments RBC Morph (test code = Normal (12/16/21 6:52 RBC Morph) AM) [facility] CenterVebpoxtPDYUFVNVXU4744-55-09 11:52:00 Test Item Value Reference Range Interpretation Comments Plt Morph (test code = Normal (12/16/21 6:52 Plt Morph) AM) [facility] [employer]ABOLIC ZPNZN5981-45-57 07:53:52 Test Item Value Reference Range Interpretation [...] De scription 1092) sq m Result G1 Miguel l or high >=90 G2 Mildly decreased 60-89 G3a Mild ly to moderately 45-5 9 G3b Moderately to [...] not appl icable for dialysis patien ts [employer] ID - KEIKO BCBC W/PLT COUNT & AUTO POCNGEWLTTMP0251-83-51 06:30:27 Test Item Value Reference Range Interpretation [...] PERCENT (BEAKER) (test code = 2801) CT, IITMQOK4758-02-83 15:16:00Reason for exam:->diverticulitisWhat is the patient's sedation requirement?->No Sedation [facility] : 1945 Sex: MFINAL [...] Ryan Thompson MDReport Verified Date/Time: 12/11/2021 15:16:47 [facility] METABOLIC [id number] 08:00:53 Test Item Value Reference Range Interpretation [...] De scription 1092) sq m Result G1 Miguel l or high >=90 G2 Mildly decreased [...] not appl icable for dialysis patien ts [employer] ID - TOO MHEPATITIS B SURFACE SGSTRCP5852-57-60 07:02:25 Test Item Value Reference Range Interpretation Comments HEPATITIS B SURFACE ANTIGEN (2) Nonreactive Nonreactive (BEAKER) (test code = 2585) Specimen is considered negative for HBsAg.CBC W/PLT COUNT & AUTO CJEHJITANPKD8222-92-53 05:50:36 Test Item Value Reference Range Interpretation [...] 0.00-1.00 PERCENT (BEAKER) (test code = 2801) SABQJCEKJB2136-21-04 15:25:56 Test Item Value Reference Range Interpretation Comments PHOSPHORUS (BEAKER) (test code = 4.2 mg/dL 2.3-4.7 604) [employer] ID - ALY LC-REACTIVE FGCMFCQ0594-36-50 12:05:31 Test Item Value Reference Range Interpretation Comments C-REACTIVE PROTEIN (BEAKER) (test 11.71 mg/dL 0.00-0.50 H code = 676) [employer] ID - ALY LSARS-CoV2/RT-PCR (Asymptomatic ONLY)2021-12-10 11:51:55 Test Item Value Reference Interpretation Comments Range SARS-COV2/RT-PCR Negative Negative The SARS-Co V-2 (test code = target nucleic 12895-2) acids are not detected in thi s [...] rapid, real-kelsey e RT-PCR test intended for e qualitative detection of nucleic acid fr [...] revoked sooner. Fact Sheet for Healthcare Providers: https://www.[employer]/Documents/Xp ert%20Xpress%20SAR S%20CoV-2/Fact%20S heets/302-3802%20S ARS-COV-2%20HEALTH CARE%20PROVIDERS%2 0FACT%20SHEET.pdf Fact Sheet for Healthcare Patients: https://www.[employer]/Documents/Xp ert%20Xpress%20SAR S%20CoV-2/Fact%20S heets/302-3801%20S ARS-COV-2%20PATIEN T%20FACT%20SHEET.p df Lab Interpretation Normal (test code = 93969-1) [facility]2021-12-10 11:51:55 Test Item Value Reference Interpretation Comments Range SARS-COV2/RT-PCR Negative Negative The SARS-Co V-2 (test code = target nucleic 55759-8) acids are not detected in thi s [...] revoked sooner. Fact Sheet for Healthcare Providers: https://www.[employer]/Documents/Xp ert%20Xpress%20SAR S%20CoV-2/Fact%20S heets/302-3802%20S ARS-COV-2%20HEALTH CARE%20PROVIDERS%2 0FACT%20SHEET.pdf Fact Sheet for Healthcare Patients: https://www.[employer]/Documents/Xp ert%20Xpress%20SAR S%20CoV-2/Fact%20S heets/302-3801%20S ARS-COV-2%20PATIEN T%20FACT%20SHEET.p df Lab Interpretation Normal (test code = 17310-2) [facility] (Asymptomatic ONLY)2021-12-10 11:51:55 Test Item Value Reference Interpretation Comments Range SARS-COV2/RT-PCR Negative Negative The SARS-Co V-2 (test code = target nucleic 85577-6) acids are not detected in thi s [...] revoked sooner. Fact Sheet for Healthcare Providers: https://www.[employer]/Documents/Xp ert%20Xpress%20SAR S%20CoV-2/Fact%20S heets/302-3802%20S ARS-COV-2%20HEALTH CARE%20PROVIDERS%2 0FACT%20SHEET.pdf Fact Sheet for Healthcare Patients: https://www.[employer]/Documents/Xp ert%20Xpress%20SAR S%20CoV-2/Fact%20S heets/302-3801%20S ARS-COV-2%20PATIEN T%20FACT%20SHEET.p df Lab Interpretation Normal (test code = 82380-8) [facility] (Asymptomatic ONLY)2021-12-10 11:51:55 Test Item Value Reference Interpretation Comments Range SARS-COV2/RT-PCR Negative Negative The SARS-Co V-2 (test code = target nucleic 13847-4) acids are not detected in thi s [...] revoked sooner. Fact Sheet for Healthcare Providers: https://www.[employer]/Documents/Xp ert%20Xpress%20SAR S%20CoV-2/Fact%20S heets/302-3802%20S ARS-COV-2%20HEALTH CARE%20PROVIDERS%2 0FACT%20SHEET.pdf Fact Sheet for Healthcare Patients: https://www.[employer]/Documents/Xp ert%20Xpress%20SAR S%20CoV-2/Fact%20S heets/302-3801%20S ARS-COV-2%20PATIEN T%20FACT%20SHEET.p df Lab Interpretation Normal (test code = 45599-3) [facility] (Asymptomatic ONLY)2021-12-10 11:51:55 Test Item Value Reference Interpretation Comments Range SARS-COV2/RT-PCR Negative Negative The SARS-Co V-2 (test code = target nucleic 14233-9) acids are not detected in thi s [...] is improperly collected, transported or handled. This SARS CoV-2 test is a rapid, real-kelsey e RT-PCR test intended for e qualitative detection of nucleic acid fr [...] revoked sooner. Fact Sheet for Healthcare Providers: https://www.[employer]/Documents/Xp ert%20Xpress%20SAR S%20CoV-2/Fact%20S heets/302-3802%20S ARS-COV-2%20HEALTH CARE%20PROVIDERS%2 0FACT%20SHEET.pdf Fact Sheet for Healthcare Patients: https://www.[employer]/Documents/Xp ert%20Xpress%20SAR S%20CoV-2/Fact%20S heets/302-3801%20S ARS-COV-2%20PATIEN T%20FACT%20SHEET.p df Lab Interpretation Normal (test code = 77024-2) [facility] (Asymptomatic ONLY)2021-12-10 11:51:55 Test Item Value Reference Interpretation Comments Range SARS-COV2/RT-PCR Negative Negative The SARS-Co V-2 (test code = target nucleic 05207-6) acids are not detected in thi s [...] revoked sooner. Fact Sheet for Healthcare Providers: https://www.[employer]/Documents/Xp ert%20Xpress%20SAR S%20CoV-2/Fact%20S heets/302-3802%20S ARS-COV-2%20HEALTH CARE%20PROVIDERS%2 0FACT%20SHEET.pdf Fact Sheet for Healthcare Patients: https://www[employer]/Documents/Xp ert%20Xpress%20SAR S%20CoV-2/Fact%20S heets/302-3801%20S ARS-COV-2%20PATIEN T%20FACT%20SHEET.p df Lab Interpretation Normal (test code = 86587-6) [facility] (Asymptomatic ONLY)2021-12-10 11:51:55 Test Item Value Reference Interpretation Comments Range SARS-COV2/RT-PCR Negative Negative The SARS-Co V-2 (test code = target nucleic 25608-3) acids are not detected in thi s [...] rapid, real-kelsey e RT-PCR test intended for e qualitative detection of nucleic acid fr [...] revoked sooner. Fact Sheet for Healthcare Providers: https://www.[employer]/Documents/Xp ert%20Xpress%20SAR S%20CoV-2/Fact%20S heets/302-3802%20S ARS-COV-2%20HEALTH CARE%20PROVIDERS%2 0FACT%20SHEET.pdf Fact Sheet for Healthcare Patients: https://www[employer]/Documents/Xp ert%20Xpress%20SAR S%20CoV-2/Fact%20S heets/302-3801%20S ARS-COV-2%20PATIEN T%20FACT%20SHEET.p df Lab Interpretation Normal (test code = 58533-7) [facility] ([facility])2021-12-10 11:51:55 Test Item Value Reference Range Interpretation Comments SARS-COV2/RT-PCR Negative Negative The SARS-Co V-2 target (test code = nucleic acids a re not 5345106) detected in thi s specimen. Negative result s do not preclude SARS-C oV-2 infection and s hould not be used as the selena e basis for patient managem ent decisions. Nega tive results must be combine d with clinical observ ations, patient history , and epidemiological information. A false negativ e result may occur if a spec imen is improperly maria fernanda ected, transported or handled. This SARS CoV-2 [...] revoked sooner. Fact Sheet for Healthcare Providers: https://www.Evim.net m/Documents/Xpert%20Xpress%20SARS%20CoV-2/Fact%20Sheets/302-3802%94IZBN-SQC-0%20 HEALTHCARE%20PROVIDERS%20FACT%20SHEET.pdf Fact Sheet for Healthcare Patients: https://www.Capsearch/Documents/Xpert%20Xp ress%20SARS%20CoV-2/Fact%20Sheets/302-3801%83AHYX-BFN-9%20PATIENT%20FACT%20SHEET .pdfBASIC METABOLIC [id number] 05:41:17 Test Item Value Reference Range Interpretation [...] De scription 1092) sq m Result G1 Miguel l or high >=90 G2 Mildly decreased [...] not appl icable for dialysis patien ts Ase Master Mechanic ID - PIAYA LCBC W/PLT COUNT & AUTO [id number] 04:58:29 Test Item Value Reference Range Interpretation [...] (BEAKER) (test code = 2801) HEMOGLOBIN AND [id number] 19:02:09 Test Item Value Reference Range Interpretation Comments HEMOGLOBIN (BEAKER) (test code = 11.6 GM/DL 13.7-17.5 L 410) HEMATOCRIT (BEAKER) (test code = 37.0 % 40.1-51.0 L 411) Ase Master Mechanic ID - [id number] 22:14:01 Test Item Value Reference Range Interpretation Comments Ventricular rate (test code = 253) Atrial rate (test code = 255) NH interval (test code = 266) QRSD interval [...] of 12-JUN-2021 16:49,-No significant change was found- [facility] [id number] 22:14:01 Test Item Value Reference Range Interpretation Comments Ventricular rate (test code = 253) Atrial rate (test code = 255) NH interval (test code = 266) QRSD interval [...] of 12-JUN-2021 16:49,-No significant change was found- [address]2022-05-04 22:14:01 Test Item Value Reference Range Interpretation Comments Ventricular rate (test code = 253) Atrial rate (test code = 255) NH interval (test code = 266) QRSD interval [...] of 12-JUN-2021 16:49,-No significant change was found- [address]2022-05-04 22:14:01 Test Item Value Reference Range Interpretation Comments Ventricular rate (test code = 253) Atrial rate (test code = 255) NH interval (test code = 266) QRSD interval [...] of 12-JUN-2021 16:49,-No significant change was found- [address]2022-05-04 22:14:01 Test Item Value Reference Range Interpretation Comments Ventricular rate (test code = 253) Atrial rate (test code = 255) NH interval (test code = 266) QRSD interval [...] of 12-JUN-2021 16:49,-No significant change was found- [facility] 12 [id number] 22:14:01 Test Item Value Reference Range Interpretation Comments Ventricular rate (test code = 253) Atrial rate (test code = 255) NH interval (test code = 266) QRSD interval [...] of 12-JUN-2021 16:49,-No significant change was found- [place] [address] [id number] 22:14:01 Test Item Value Reference Range Interpretation Comments Ventricular rate (test 63 code = 253) Atrial rate (test code 63 = 255) NH interval (test code 216 = 266) QRSD interval (test 126 code = 260) QT interval (test code 484 = 264) QTC interval (test code 495 = 265) P axis 1 (test code = 35 267) QRS axis 1 (test code = 58 268) T wave axis (test code 37 = 270) EKG impression (test Sinus rhythm with 1st code = 273) degree AV block-Right bundle branch block-Abnormal ECG-In automated comparison with ECG of 12-JUN-2021 16:49,-No significant change was found- [facility] RNA [Presence] in Respiratory specimen by GREGORIO with probe [id number] 16:18:00 Test Item Value Reference Range Interpretation Comments SARS-CoV-2 (COVID-19) RNA Not detected [Presence] in Respiratory specimen by GREGORIO with probe detection (test code = 95012-1) Whether patient is employed in a Unknown healthcare setting (test code = 48076-2) Whether the patient has symptoms Unknown related to condition of interest (test code = 17898-0) Whether the patient was Unknown hospitalized for condition of interest (test code = 62114-8) Whether the patient was admitted Unknown to intensive care unit (ICU) for condition of interest (test code = 88545-4) Whether patient resides in a Unknown congregate care setting (test code = 36737-6) status (test code = Unknown 59855-8) Date and time of symptom onset Unknown (test code = 05359-7) [facility] ED Preliminary Interpretation - Not an [id number] 02:34:56 Test Item Value Reference Range Interpretation Comments JACQUELYN (test code = JACQUELYN) Arturo Farnsworth MD 06/13/2021 9:00 [facility] ED Preliminary Interpretation - Not an OrderPerformed by: Arturo Farnsworth MDAuthorized by: Arturo Farnsworth MD ECG reviewed by ED Physician in the absence of a esthetician/spa coordinator: yes Interpretation: Interpretation: abnormal Rate: ECG rate: 65 ECG rate assessment: normal Rhythm: Rhythm: sinus rhythm and A-V block Ectopy: Ectopy: none QRS: QRS axis: Normal QRS intervals: NormalConduction: Conduction: abnormal 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 ST segments: ST segments: Non-specific Lab Interpretation Abnormal (test code = 72307-5) [facility] ED Preliminary Interpretation - Not an [id number] 02:34:56 Test Item Value Reference Range Interpretation Comments JACQUELYN (test code = JACQUELYN) Arturo Farnsworth MD 06/13/2021 9:00 [facility] Preliminary Interpretation - Not an OrderPerformed by: Arturo Farnsworth MDAuthorized by: Arturo Farnsworth MD ECG reviewed by ED Physician in the absence of a esthetician/spa coordinator: yes Interpretation: Interpretation: abnormal Rate: ECG rate: 65 ECG rate assessment: normal Rhythm: Rhythm: sinus rhythm and A-V block Ectopy: Ectopy: none QRS: QRS axis: Normal QRS intervals: NormalConduction: Conduction: abnormal 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 ST segments: ST segments: Non-specific Lab Interpretation Abnormal (test code = 44569-7) [facility] ED Preliminary Interpretation - Not an [id number] 02:34:56 Test Item Value Reference Range Interpretation Comments JACQUELYN (test code = JACQUELYN) Arturo Farnsworth MD 06/13/2021 9:00 [facility] Preliminary Interpretation - Not an OrderPerformed by: Arturo Farnsworth, MDAuthorized by: Arturo Farnsworth MD ECG reviewed by ED Physician in the absence of a esthetician/spa coordinator: yes Interpretation: Interpretation: abnormal Rate: ECG rate: 65 ECG rate assessment: normal Rhythm: Rhythm: sinus rhythm and A-V block Ectopy: Ectopy: none QRS: QRS axis: Normal QRS intervals: NormalConduction: Conduction: abnormal 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 ST segments: ST segments: Non-specific Lab Interpretation Abnormal (test code = 66510-9) [facility] ED Preliminary Interpretation - Not an [id number] 02:34:56 Test Item Value Reference Range Interpretation Comments JACQUELYN (test code = JACQUELYN) Arturo Farnsworth MD 06/13/2021 9:00 [facility] Preliminary Interpretation - Not an OrderPerformed by: Arturo Farnsworth, MDAuthorized by: Arturo Farnsworth MD ECG reviewed by ED Physician in the absence of a esthetician/spa coordinator: yes Interpretation: Interpretation: abnormal Rate: ECG rate: 65 ECG rate assessment: normal Rhythm: Rhythm: sinus rhythm and A-V block Ectopy: Ectopy: none QRS: QRS axis: Normal QRS intervals: NormalConduction: Conduction: abnormal 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 ST segments: ST segments: Non-specific Lab Interpretation Abnormal (test code = 21013-5) [facility] ED Preliminary Interpretation - Not an [id number] 02:34:56 Test Item Value Reference Range Interpretation Comments JACQUELYN (test code = JACQUELYN) Arturo Farnsworth MD 06/13/2021 9:00 [facility] Preliminary Interpretation - Not an OrderPerformed by: Arturo Farnsworth MDAuthorized by: Arturo Farnsworth MD ECG reviewed by ED Physician in the absence of a esthetician/spa coordinator: yes Interpretation: Interpretation: abnormal Rate: ECG rate: 65 ECG rate assessment: normal Rhythm: Rhythm: sinus rhythm and A-V block Ectopy: Ectopy: none QRS: QRS axis: Normal QRS intervals: NormalConduction: Conduction: abnormal 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 ST segments: ST segments: Non-specific Lab Interpretation Abnormal (test code = 54303-3) [facility] ED Preliminary Interpretation - Not an [id number] 02:34:56 Test Item Value Reference Range Interpretation Comments JACQUELYN (test code = JACQUELYN) Arturo Farnsworth MD 06/13/2021 9:00 [facility] Preliminary Interpretation - Not an OrderPerformed by: Arturo Farnsworth MDAuthorized by: Arturo Farnsworth MD ECG reviewed by ED Physician in the absence of a esthetician/spa coordinator: yes Interpretation: Interpretation: abnormal Rate: ECG rate: 65 ECG rate assessment: normal Rhythm: Rhythm: sinus rhythm and A-V block Ectopy: Ectopy: none QRS: QRS axis: Normal QRS intervals: NormalConduction: Conduction: abnormal 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 ST segments: ST segments: Non-specific Lab Interpretation Abnormal (test code = 89175-4) [facility] ED Preliminary Interpretation - Not an [id number] 02:34:56 Test Item Value Reference Range Interpretation Comments JACQUELYN (test code = JACQUELYN) Arturo Farnsworth MD 06/13/2021 9:00 [facility] Preliminary Interpretation - Not an OrderPerformed by: Arturo Farnsworth MDAuthorized by: Arturo Farnsworth MD ECG reviewed by ED Physician in the absence of a esthetician/spa coordinator: yes Interpretation: Interpretation: abnormal Rate: ECG rate: 65 ECG rate assessment: normal Rhythm: Rhythm: sinus rhythm and A-V block Ectopy: Ectopy: none QRS: QRS axis: Normal QRS intervals: NormalConduction: Conduction: abnormal 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 ST segments: ST segments: Non-specific Lab Interpretation Abnormal (test code = 49363-3) [facility]- XR CHEST 1 [id number] 14:08:00 [facility] 1945 Sex: M FAX: Sekou Amezcua [phone] Shanks: St: ADM Name: DARIEN GROSSMAN [facility] : 1945 Age/S: 74/M [address] [place] [address] Bl Unit #: [id number] Loc: [address] [address] Phys: Sekou Curtis MD Acct: [id number] Dis Date: Status: ADM IN PHONE #: [phone] Exam Date: 05/31/2020 1406 FAX #: [phone] Reason: HD protocol, need to make sure no TB EXAMS: CPT CODE: [id number] XR CHEST 1 V 36269 EXAM: Single view AP chest. EXAM DATE: [...] Kumar M.D. CC: Sekou Curtis Technologist: RT Marques(Cindy) Trnscrd Date/Time/By: 05/31/2020 (1405) : By: CarlitoCER Orig Print D/T: S: 05/31/2020 (7950) PAGE 1 Signed ReportBASIC METABOLIC [id number] 05:15:00 Test Item Value Reference Range Interpretation [...] code = 8.5 mg/dL 8.0-10.5 N CA) [id number] 05:15:00 Test Item Value Reference Range Interpretation Comments ALBUMIN (test code = ALB) 3.10 g/dL 3.4-5.0 L [id number] 05:15:00 Test Item Value Reference Range Interpretation Comments PREALBUMIN (test code = PREALB) 27.0 mg/dL 16.0-40.0 N [id number] 23:17:00 Test Item Value Reference Range Interpretation Comments GLUBED (test code = 95 MG/DL 70-110 N Performe d by certified GLUBED) 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 on 05/29/20:946219 / 0935: CA previo usly reported as: 8. 2 mg/dL BASIC METABOLIC [id number] 07:53:00 Test Item Value Reference Range Interpretation [...] 8.2 mg/dL 8.0-10.5 N CA) BASIC METABOLIC [id number] 04:28:00 Test Item Value Reference Range Interpretation [...] 9.3 mg/dL 8.0-10.5 N CA) CBC W/AUTO [id number] 08:31:00 Test Item Value Reference Range Interpretation [...] (test code NO = MDIFF) BASIC METABOLIC [id number] 07:59:00 Test Item Value Reference Range Interpretation [...] CA) - USG NDL PLACEMENT (Bxg/Asp)2020-05-24 15:12:00 [facility] CINDY SMITHName: DARIEN GROSSMAN : 1945 Sex: M Name: DARIEN GROSSMAN [facility] Cindy Smith : 1945 Age/S: 74 / M [address] [place] [address] Bl Unit #: [id number] Loc:[place] [address] Phys: Jonathan Sheikh MONOGRAM MAKER Acct: [id number] Dis Date: Status: ADM IN PHONE #: [phone] Exam Date: 05/24/2020 1434 FAX #: [phone] Reason: right aka fluid collection EXAMS: CPTCODE: [id number] USG NDL PLACEMENT (Bxg/Asp) 98521 PROCEDURE: Ultrasound-guided right knee stump fluid collection. 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 Informed consent was obtained. Timeout was performed prior to the procedure. Ultrasound was used to evaluate pot ential access sites. The knee stump was sterilely prepped and draped. 1% lidocaine was used for local anesthesia. Using ultrasound guidance, 18-gauge needle was advanced into the collection. Approximately 15 mL of blood-tinged fluid was aspirated and sample was sent to lab. Upon completion of the proce dure, the needle was removed. Pressure was applied [...] (1511) [email or web address] Orig Print D/T: S: 05/24/2020 (1515) Probe: PAGE 1 Signed Report- CT LOWER EXTRM W/O C [id number] 18:02:00 [facility] : 1945 Sex: M Name: DARIEN GROSSMAN [facility] : 1945 Age/S: 74 / M [address] [place] [address] Blvd Unit #: [id number] Loc: [place] [address] Phys: Jonathan Sheikh NP Acct: [id number] Dis Date: Status: ADM IN PHONE #: [phone] Exam Date: 05/23/2020 1728 FAX #: [phone] Reason: right bka, r/o fluid collection EXAMS: CPT CODE: [id number] [place] L[place] EXTRM W/[place] [address] [place] right femur without contrast. INDICATION: Righ [...] iterative reconstruction techniques. DLP: 566 mGy-cm FINDINGS: Mcgjl-rmf-ldhz amputation has been performed. A permeative pattern [...] fluid collection at the stump site. There isloss of fatty medullary density at the stump site. Osteomyelitis is not excluded. Correlate with MRIas clinically indicated. SL: SG-H at 1802 Reported and signed by: Dominic Mena M.D. CC: Sekou Curtis; Jonathan Sheikh MONOGRAM MAKER Technologist:David Aguirre, RT(R)(CT) CTDI: DLP: Trnscb Date/Time: 05/23/2020 (1801) t.[email or web address].SG9 Orig Print D/T: S: 05/23/2020 (1805) PAGE 1 Signed ReportBASIC METABOLIC [id number] 13:38:00 Test Item Value Reference Range Interpretation [...] code = 9.6 mg/dL 8.0-10.5 N CA) [id number] 13:38:00 Test Item Value Reference Range Interpretation Comments PHOSPHOROUS (test code = PHOS) 3.9 MG/DL 2.5-4.9 N [id number] 13:36:00 Test Item Value Reference Range Interpretation Comments ALBUMIN (test code = ALB) 3.20 g/dL 3.4-5.0 L [id number] 13:36:00 Test Item Value Reference Range Interpretation Comments PREALBUMIN (test code = PREALB) 14.3 mg/dL 16.0-40.0 L CBC W/AUTO [id number] 13:15:00 Test Item Value Reference Range Interpretation [...] (test code NO = MDIFF) SED RATE [id number] 08:19:00 Test Item Value Reference Range Interpretation Comments SED RATE BRAYANLAUROREN (test code = 114 mm/hr 0-15 H SEDW) [id number] 08:09:00 Test Item Value Reference Range Interpretation Comments PREALBUMIN (test code = PREALB) 13.1 mg/dL 16.0-40.0 L C REACTIVE [id number] 08:08:00 Test Item Value Reference Range Interpretation Comments C REACTIVE PROTEIN (test code = 192.0 mg/L <10.0 H CRP) CBC W/AUTO [id number] 07:57:00 Test Item Value Reference Range Interpretation [...] MDIFF) - XR HIP W/PEL UNI 2+V [id number] 18:35:00 [facility] : 1945 Sex: M FAX: Sekou Amezcua [phone] Shanks: St: ADM FAX: Dusty Smiley [phone] Name: DARIEN GROSSMAN [facility] : 1945 Age/S: 74/M [address] [place] [address] Bl Unit #: [id number] Loc: [address] [place] [address] Phys: Dusty Smiley MONOGRAM MAKER Acct: [id number] Dis Date: Status: ADM IN PHONE #: [phone] Exam Date: 05/21/2020 173 FAX #: [phone] Reason: left hip pain EXAMS: CPT CODE: [id number] XR HIP W/PELUNI 2+[place] [address] 2+ RADIOGRAPHIC VIEWS LEFT HIP INDICATION: left [...] Sekou Curtis; Dusty Smiley NP Technologist: RT Jesus(Cindy) Trnscrd Date/Time/By: 05/21/2020 (1834) : By: [email or web address] Orig Print D/T: S: 05/21/2020 (9457) PAGE 1 Signed ReportCBC W/AUTO [id number] 07:47:00 Test Item Value Reference Range Interpretation [...] (test code NO = MDIFF) BASIC METABOLIC [id number] 07:40:00 Test Item Value Reference Range Interpretation [...] 9.1 mg/dL 8.0-10.5 N CA) COMPREHENSIVE METABOLIC [id number] 06:03:00 Test Item Value Reference Range Interpretation [...] TOTAL (test code = ALKP) CBC W/AUTO [id number] 05:49:00 Test Item Value Reference Range Interpretation [...] (test code NO = MDIFF) BASIC METABOLIC [id number] 08:43:00 Test Item Value Reference Range Interpretation [...] code = 9.0 mg/dL 8.0-10.5 N CA) [id number] 08:43:00 Test Item Value Reference Range Interpretation Comments PHOSPHOROUS (test code = PHOS) 4.7 MG/DL 2.5-4.9 N CBC W/AUTO [id number] 08:29:00 Test Item Value Reference Range Interpretation [...] (test code NO = MDIFF) BASIC METABOLIC [id number] 07:42:00 Test Item Value Reference Range Interpretation [...] 9.5 mg/dL 8.0-10.5 N CA) BASIC METABOLIC [id number] 09:55:00 Test Item Value Reference Range Interpretation [...] code = 8.7 mg/dL 8.0-10.5 N CA) [id number] 09:55:00 Test Item Value Reference Range Interpretation Comments PHOSPHOROUS (test code = PHOS) 5.2 MG/DL 2.5-4.9 H [id number] 09:55:00 Test Item Value Reference Range Interpretation Comments MAGNESIUM (test code = MAG) 1.89 mg/dL 1.80-2.40 N CBC W/AUTO [id number] 09:28:00 Test Item Value Reference Range Interpretation [...] REQUIRED (test code = MDIFF) CBC W/AUTO [id number] 09:28:00 Test Item Value Reference Range Interpretation [...] (test code NO = MDIFF) ACUTE HEPATITIS [id number] 13:08:00 Test Item Value Reference Range Interpretation [...] COMMENTS: At start of hemodialysisAB HEPATITIS B [id number] 13:08:00 Test Item Value Reference Range Interpretation Comments AB HEPATITIS B 22.1 mIU/mL See_Comment Status of Im munity SURFACE (test code = Anti-HB s Level HBSAB) --- I nconsis tent with Immun ity 0.0 - 9.9Consis tent with Immunity >9.9Performed A t: HD [facility] [address] [id number] jaswinder Peralta MD Ph:[phone] [Automated mess age] The system [employer] generated this result transmitted ref erence range: Immunity >9.9. The reference r za was not used to interpret this result as normal/abnor mal. COMMENTS: At start of hemodialysisACUTE HEPATITIS [id number] 10:00:00 Test Item Value Reference Range Interpretation [...] COMMENTS: At start of hemodialysisAB HEPATITIS B [id number] 10:00:00 Test Item Value Reference Range Interpretation Comments AB HEPATITIS B SURFACE (test code = HBSAB) COMMENTS: At start of hemodialysisBASIC METABOLIC [id number] 09:23:00 Test Item Value Reference Range Interpretation [...] 8.5 mg/dL 8.0-10.5 N CA) CBC W/AUTO [id number] 09:16:00 Test Item Value Reference Range Interpretation [...] (test code NO = MDIFF) RENAL FUNCTION [id number] 06:58:00 Test Item Value Reference Range Interpretation [...] code = 3.0 MG/DL 2.5-4.9 N PHOS) [id number] 06:58:00 Test Item Value Reference Range Interpretation Comments MAGNESIUM (test code = MAG) 1.81 mg/dL 1.80-2.40 N CBC W/AUTO [id number] 06:49:00 Test Item Value Reference Range Interpretation [...] (test code NO = MDIFF) CBC W/AUTO [id number] 06:45:00 Test Item Value Reference Range Interpretation [...] code = MDIFF) - CT HEAD/BRAIN W/O [id number] 04:29:00 [facility] : 1945 Sex: M Name: DARIEN GROSSMAN [facility] : 1945 Age/S: 74 / M [address] [place] [address] Unit #: [id number] Loc:[place] [address] Phys: Fausto Espino MD Acct: [id number] Dis Date: Status: ADM IN PHONE #: [phone] Exam Date: 05/13/2020 0414 FAX #: [phone] Reason: TRAUMA EXAMS: CPT CODE: [id number] CT HEAD/BRAIN W/O CONT 06203 STUDY: - CT HEAD/BRAIN W/O CONT 05/13/2020 5:00 AM Ordering Physician: Fausto Espino MD Patient Name: DARIEN GROSSMAN MR: [id number] : 1945; Age: 74 years y/o Male [...] maximum thickness again seen extending into the lef t tentorium measuring up to 2 mm maximum thickness. Stable minimal right to left midline shift estimated at 1.5 mm at the level of the septum pellucidum. No interval acute intracranial hemorrhage or infarction. VENTRICLES: The lateral ventricles, third ventricle, fourth ventricle, and basilar cisternsare appropriate for degree of atrophy present. PARANASAL SINUSES: The visualized portions of the paranasal sinuses are clear. PAGE 1 Signed Report (CONTINUED) Name: DARIEN GROSSMAN [facility] [place] : 1945 Age/S: 74 / M [address] [place] [address] Blvd Unit #: [id number] Loc: [place] [address] Phys: Fausto Espino MD Acct: [id number] Dis Date: Status: ADM IN PHONE #: [phone] Exam Date: 05/13/2020413 FAX #: [phone] Reason: TRAUMA EXAMS: CPT CODE: [id number] CT HEAD/BRAIN W/O CONT 31551 <Continued> MASTOIDS: Clear. ORBITS: The globes are [...] ischemic change. Stable acute left parafalcine subdural hematomaextending into the left tentorium. Minimal left to right midline shift is stable. SL: TPAINTER- H at 0429 Reported and signed by: Anoop Mays M.D. CC: Fausto Espino MD; Bennett Farnsworth MD Technologist:RT Irene(R)(CT); Edgar CTDI: DLP: Trnscb Date/Time: 05/13/2020 (428) [email or web address] Orig Print D/T: S: 05/13/2020 (5452) PAGE 2 Signed ReportCOVID 19 Asymptomatic IH [id number] 03:09:00 Test Item Value Reference Range Interpretation Comments COVID 19 Asymptomatic Negative Negative A nega tive result is IH AG (test code = presumpti ve and should COVNONPUIAG) be confirmedwit h an FDA authorized mole cular assay, if neces valentino forpatient danielle alycia.A positive result does not rule out co-inf [...] high or waivedcomplexit y tests. BASIC METABOLIC [id number] 02:14:00 Test Item Value Reference Range Interpretation [...] 8.5 mg/dL 8.0-10.5 N CA) HEPATIC FUNCTION [id number] 02:14:00 Test Item Value Reference Range Interpretation [...] 112 IUnit/L 20-125 N code = ALKP) [id number] 02:14:00 Test Item Value Reference Range Interpretation Comments LIPASE (test code = LIP) 185 U/L 13-57 H [id number] 02:14:00 Test Item Value Reference Range Interpretation Comments ALCOHOL (test < 3.0 mg/dL <10 N Ethyl Alcohol code = ALC) Interpretation: 100 mg/dL - Legally Intoxicated 300 -400 mg/dL - Severely Into xicated >400 mg/dL - Potentially Let halThe pharmacological response to blood alcoho l levels mayvary from in dividual to individual. Signs of intoxicationcan be observed at lev els of 50-100 mg/dL. R esults are for Medical pur poses only, and not f or Legal orEmployment ev aluation purposes. PROTHROMBIN [id number] 02:11:00 Test Item Value Reference Range Interpretation [...] (to prevent recurrent infar ct). THROMBOPLASTIN TIME [id number] 02:11:00 Test Item Value Reference Range Interpretation Comments THROMBOPLASTIN TIME 31.8 Seconds 25.0-39.5 N Therape utic Range: PARTIAL (test code = 50.4 - 88.3 Seconds PTT) Effective 05/27/2018 PROTHROMBIN [id number] 02:10:00 Test Item Value Reference Range Interpretation [...] (to prevent recurrent infar ct). THROMBOPLASTIN TIME [id number] 02:10:00 Test Item Value Reference Range Interpretation Comments THROMBOPLASTIN TIME PARTIAL (test Seconds 25.0-39.5 code = PTT) CBC W/AUTO [id number] 01:59:00 Test Item Value Reference Range Interpretation [...] NO = MDIFF) - CT HEAD/BRAIN W/O [id number] 23:15:00 [facility] : 1945 Sex: M Name: DARIEN GROSSMAN [facility] : 1945 Age/S: 74 / M [address] Unit #: [id number] Loc: [place] [address] Phys: Undefined Provider Acct: [id number] Dis Date: Status: REG REF PHONE #: [phone] Exam Date: 05/12/20201 FAX #: Reason: s/p fall Report Has Been Amended EXAMS: CPT: [id number] CT HEAD/BRAIN W/O CONT 16541 Addendum - 05/12/2020 SIGNED 05/12/[address]: [id number]/CTHDBRWO Findings were notified to warehouse incentive selector Huyen at 11:15 PM on 05/12/2020. at 2315 Reported and signed by: Kaela Lindsey M.D. Transcribed: 05/12/2020 (9870) [email or web address] Report EXAM: - CT HEAD/BRAIN W/O [...] GROSSMANland : 1945 Age/S: 74 / M [address] Unit #: [id number] Loc: [place] [address] Phys: Undefined Provider Acct: [id number] Dis Date: Status: REG REF PHONE #: [phone] Exam Date: 05/12/20202213 FAX #: Reason: s/p fall Report Has Been Amended EXAMS: CPT: [id number] CT HEAD/BRAIN W/O CONT 11510 (Continued) frontoparietal lobe without midline shift or [...] Report- CT HEAD/BRAIN W/O CONT 2020-05-12 23:15:00 [facility] : 1945 Sex: M Name: [facility] 1945 Age/S: 74 / M [address] Unit #: [id number] Loc: [place] [address] Phys: Undefined Provider Acct: [id number] Dis Date: Status: REG REF PHONE #: [phone] Exam Date: 05/12/2020 3760 FAX #: Reason: s/p fall Report Has Been Amended EXAMS: CPT: [id number] CT HEAD/BRAIN W/O CONT 05653 Addendum - 05/12/2020 SIGNED 05/12/[address]: [id number]/CTHDBRWO Findings were notified to warehouse incentive selector Huyen at 11:15 PM on 05/12/2020. at 2315 Reported and signed by: Kalea Lindsey M.D. Transcribed: 05/12/2020 (2131) [email or web address] Report EXAM: - CT HEAD/BRAIN W/O [...] GROSSMAN : 1945 Age/S: 74 / M [address] Unit #: [id number] Loc: [place] [address] Phys: Undefined ProviderAcct: [id number] Dis Date: Status: REG REF PHONE #: [phone] Exam Date: 05/12/20204 FAX #: Reason: s/p fall Report Has Been Amended EXAMS: CPT: [id number] CT HEAD/BRAIN W/O CONT 10668 <Continued> frontoparietal lobe without midline shift or [...] PAGE 2 Signed Report- CT HEAD/BRAIN W/O [id number] 22:51:00[facility] : 1945 Sex: M Name: DARIEN GROSSMAN : 1945 Age/S: 74 / M [address] Unit #: [id number] Loc: [place] [address] Phys: Undefined Provider Acct: [id number] Dis Date: Status: REG REF PHONE #: [phone] Exam Date: 05/12/20202213 FAX #: Reason: s/p fall EXAMS: CPT: [id number] CT HEAD/BRAIN W/O CONT 17561 EXAM: - CT HEAD/BRAIN W/O CONT LOCATION: [...] hemorrhage or mass effect. Beginning to confluent hypodensitiesin the periventricular and deep cerebral white matter are nonspecific, but are likely moderate chronic small vessel ischemic disease. EXTRA AXIAL SPACE: There is a hyperdense left parafalcine subdural hematoma which extends from the mid to posterior aspect of the interhemispheric fissure. The hematomameasures up to 7 mm in thickness. There [...] GROSSMAN : 1945 Age/S: 74 / M [address] Unit #: [id number] Loc: [place] [address] Phys: Undefined Provider Acct: [id number] Dis Date: Status: REG REF PHONE #: [phone] Exam Date: 05/12/20202213 FAX #: Reason: s/p fallEXAMS: CPT: [id number] CT HEAD/BRAIN W/O CONT 26899 (Continued) at 2251 Reported and signed by: Kaela Lindsey M.D. CC: Technologist:RT Sharon(R)(CT); ... CTDI: DLP: Trnscb Date/Time: 05/12/2020 (2250) [email or web address] Orig Print D/T: S: 05/12/2020 (2254) PAGE 2 Signed Report- CT C-SPINE W/O CONT 2020-05-12 22:40:00 [facility] : 1945 Sex: M Name: DARIEN GROSSMAN [facility] : 1945 Age/S: 74 / M [address] Unit #: [id number] Loc: [place] [address] Phys: Undefined Provider Acct: [id number] Dis Date: Status: REG REF PHONE #: [phone] Exam Date: 05/12/20202213 FAX #: Reason: s/p fall EXAMS: CPT: [id number] CT C-SPINE W/O CONT 10449 EXAM: - CT C-SPINE W/O CONT LOCATION: [...] 1 Signed Report (CONTINUED) Name: [facility]SM[facility] 1945 Age/S: 74 / M [address] Unit #: [id number] Loc: [place] [address] Phys: Undefined Provider Acct: [id number] Dis Date: Status: REG REF PHONE #: [phone] Exam Date: 05/12/2020 5814 FAX #: Reason: s/p fall EXAMS: CPT: [id number] CT C-SPINE W/O CONT 74786 (Continued) spinal canal stenosis. C3- C4: Diffuse [...] stenosis, but no spinal canal stenosis. C5-C6: Diffusedisc osteophyte complex, bilateral uncovertebral arthrosis, moderate right and mild left facet arthrosis. Constellation of findings result in severe bilateral neural foraminal stenosis, but no spinal ca nal stenosis. C6-C7: Left central disc osteophyte complex results in mild central spinal canal stenosis. Bilateral uncovertebral arthrosis results in severe bilateral neural foraminal stenosis. C7-T1: Bilateral uncovertebral arthrosis and severe right facet arthrosis contributes to severe bilateral andres ral foraminal stenosis but no spinal canal stenosis. IMPRESSION: 1. No acute fracture or subluxation. 2. Severe multilevel facet arthropathy, disc degeneration and uncovertebral arthrosis results in severe multilevel foraminal stenosis, but no high-grade spinal canal stenosis. at 2240 Reported and signed by: Kaela Lindsey M.D. CC: Technologist:RT Sharon(Cindy)(CT); ... CTDI: DLP: Trnscb Date/Time: 05/12/2020 (2239) [email or web address] Orig Print D/T: S: 05/12/2020 (4592) PAGE 2 Signed Report- CT C-SPINE W/O [id number] 22:40:00 [facility] : 1945 Sex: M Name: DARIEN GROSSMAN [facility] : 1945 Age/S: 74 / M [address] Unit #: [id number] Loc: [place] [address] Phys: Undefined Provider Acct: [id number] Dis Date: Status: REG REF PHONE #: [phone] Exam Date: 05/12/20207 FAX #: Reason: s/p fall EXAMS: CPT: [id number] CT C-SPINE W/O CONT 54638 EXAM: - CT C-SPINE W/O CONT LOCATION: [...] 1 Signed Report (CONTINUED) Name: DARIEN GROSSMAN [facility] : 1945 Age/S: 74 / M [address] Unit #: [id number] Loc: [place] [address] Phys: Undefined Provider Acct: [id number] Dis Date: Status: REG REF PHONE #: [phone] Exam Date: 05/12/2020 1318 FAX #: Reason: s/p fall EXAMS: CPT: [id number] CT C-SPINE W/O CONT 34036 <Continued> spinal canal stenosis. C3-C4: Diffuse disc [...] signed by: Kaela Lindsey M.D. CC: Technologist:RT Sharon(Cindy)(CT); ... CTDI: DLP: Trnscb Date/Time: 05/12/2020 (2239) [email or web address] Orig Print D/T: S: 05/12/2020 (0810) PAGE 2 Signed ReportAFB urqrvop1877-79-28 05:13:59 Test Item Value Reference Range Interpretation Comments AFB culture isolate No growth after 6 (test code = 543-9) weeks of incubation. [facility]alsFung[facility] tfzrtav1588-48-21 06:15:49 Test Item Value Reference Range Interpretation Comments Fungus culture isolate No growth after 4 (test code = 1441) weeks of incubation. [facility] [place] < 1 [id number] 21:39:42EXAMINATION: OR FL < 1 HOUR C-arm [...] will be issued by the physician performing theprocedure.[id number] HospitalAnaerobic ftqzmda3728-65-51 14:47:42 Test Item Value Reference Range Interpretation Comments Anaerobic culture No anaerobic organisms isolate (test code = isolated. 552) [facility] HospitalAFB [id number] 07:48:01 Test Item Value Reference Range Interpretation Comments AFB stain (test code = No acid fast bacilli 676-7) (AFB) seen. [facility] HospitalA[facility] mcunaei9522-72-28 07:48:01 Test Item Value Reference Range Interpretation Comments Aerobic culture isolate No growth after 3 (test code = 498) days. [facility] HospitalFungus fjtvi7185-64-64 07:48:01 Test Item Value Reference Range Interpretation Comments Fungus smear (test code = No fungi observed. 1443) [facility] HospitalGram sgcvn7634-29-30 07:48:01Gram stain isolateFew WBC'sNo organisms seen Comment: Specimen InformationSpecimen Source: TissueSpecimen Site: Femur: Right femoral canal tissue [facility] [id number] 21:19:54 Test Item Value Reference Range Interpretation Comments Case number (test code = [id number]) Surgical pathology See link below for report (test code = PDF Lab Report 2255) Result status (test code This is Final Report = [id number]) for [id number] [facility] carotid mrcxbp2546-19-37 00:39:00 [facility] Carotid Artery Duplex Report [address] [place] [address] For quality system manager purposes, the categorization of the degree of the stenosis of this exam is based on criteria described in the IAC carotid stenosis grading white paper( www.intersocietal.org/Vascular) and Shagufta Andrews., Ritu Armendariz., et al. Carotid artery stenosis: chaves-scale and Doppler US diagnosis--Society of Radiologists in Ultrasound Consensus Conference. Radiology. 2003 Nov; 229(2):340-6. Pat.Name: DARIEN GROSSMAN Pat.ID: [id number] .Date: 03/23/2020 Refer.MD: BEAR MARIEE MD Exam Time: 11:25:00 AM Study Type:Carotid Height: 68in Weight: 186lb BSA: 1.98 m2 Age: 9 1945,74Y Sex: MALE Sonogrphr: NOEMI Chapman Pat. Stat.:Inpatient Room: [address] Vol: BE, CPT - 4: 02485 Echo Event ID:[id number] Order ID: [id number] Reason for Study:Cervical bruit, no prior carotid [...] 1.14 Signed 03/23/2020 06:39 PMAngel Liang MD, RPVIInterfranciscan health, Radiology Results In - 03/23/2020 6:40 PM CST [facility] Carotid Artery Duplex Report [address] [place] [address] For quality system manager purposes, the categorization of the degree of the stenosis of this exam is based on criteriadescribed in the IAC carotid stenosis grading white paper( www.intersocietal.org/Vascular) and Shagufta Andrews., Marcello CMarvaB., et al. Carotid artery stenosis: chaves-scale and Doppler US diagnosis--Society ofRadiologists in Ultrasound Consensus Conference. Radiology. 2003 Nov; 229(2):340-6. Pat.Name: DARIEN GROSSMANNess Pat.ID: [id number] .Date: 03/23/2020 Refer.MD: BEAR MARIEE MD Exam Time: 11:25:00 AM Study Type:Carotid Height: 68in Weight: 186lb BSA: 1.98 m2 Age: 9 1945,74Y Sex: MALE Sonogrphr: NOEMI Chapman Pat. Stat.:Inpatient Room: [address] Vol: BE, CPT - 4: 14456 Echo Event ID:[id number] Order ID: [id number] Reason for Study:Cervical bruit, no prior carotid [...] extending into the internal and external carotid arterie s. Thereis antegrade flow noted in the vertebral artery. LEFT: There is scattered hard plaque with intimal thickening inthe common carotid artery. There is hard and calcified plaque withshadowing notedin the bulb extending into the internal carotidartery. [...] artery.5. There is intimal thickening noted throughout thecommon carotidartery, bilaterally. 6. The left subclavian artery [...] distal AVF.6. Bilateral vertebral arteries with antegrade flow.--------- FINDINGS: Carotid Findings: Right LeftVerteb.Flw Antegrade Antegrade Subclavian Triphasic Disturbed DINA SUREMENTS: DOPPLERRight CCA Dist CCA Dist PSV 116 cm/s CCA Dist CCA Dist EDV 20 cm/s CCA Dist EDV 29 cm/sRight CCA Mid CCA Mid PSV 118 cm/s CCA Mid CCA Mid EDV 20 cm/s CCA Mid EDV 25 cm/sRight CCA Prox CCA Prox PSV 108 cm/s CCA Prox CCA Prox EDV 26 cm/s CCA Prox EDV25 cm/s CCA Prox PSV 92 cm/s Right [...] ICA Prox EDV 35 cm/sRight Vertebral Vertebral PSV87 cm/s Vertebral Vertebral EDV 26 cm/s Vertebral [...] 1.14 Signed 03/23/2020 06:39 PMZsolt Azul MD, [facility]2021-02-09 19:25:28Tejal Simpson 03/22/2020 1:45 [address]MAirway Date/Time: 03/22/2020 1:00 PM Location: OR Performed by: REHAB THERAPY MANAGER/A AAnesthesiologist: Tahmina Mccloud/REHAB THERAPY MANAGER/AA: Tejal SimpsonAuthorized by: Liu Mccloud Urgency: ElectiveDifficult [...] First attempt using Sheikh 2 blade by REHAB THERAPY MANAGER. Second attempt with MD with MAC 3. Grade 3b view, secondary to neck stiffness.Grade 1 view with glidescope. ETT passed atraumatically.Transthoracic Echocardiogram Complete, (w Contrast, Strain and 3D if needed)2020-03-19 20:20:00 Echocardiography Report [address] [place] [address] Pat.Name: DARIEN GROSSMAN Pat.ID: [id number] .Date: 03/19/2020 Refer.MD: CLINT KING DO Exam Time: 11:43:00 AM Study Type:Routine Echo Height: 68in Weight: 185.61lb BSA: 1.98 m2 Age: 9 1945,74Y Sex: MALE BP: 110/57 HR: 70 bpm Sonogrphr: NILSON Conde. Stat.:Inpatient Room: [facility] Study Status:Final Echo Event ID:[id number] Order ID: [id number] Reason for Study:Perioperative function eval without cardiac [...] estimate PA systolic pressure. MEASUREMENTS: 2DParasternal [place] Ao An 2.2 cm LVPWd 1.3 cm Ao Rtd 3.4 cm Index 1.7 cm/m2LA Ds 4.1 cm IVSd 1.3 cm RWT [...] - 03/19/2020 2:20 PM CST Echocardiography Report [id number] [address] Pat.Name: DARIEN GROSSMAN Pat.ID: [id number] .Date: 03/19/2020 Refer.MD: CLINT KING DO Exam Time: 11:43:00 AM Study Type:Routine Echo Height: 68in Weight: 185.61lb BSA: 1.98 m2 Age: 9 1945,74Y Sex: MALE BP: 110/57 HR: 70 bpm Sonogrphr: NILSON Conde. Stat.:Inpatient Room: J91 Study Status:Final Echo Event ID:[id number] Order ID: [id number] Reason for Study:Perioperative function eval without cardiac evidenceHistory / Clinical:Hypertension, Heart Dis easeProcedures: 2D Echo, Colorflow Doppler, 3D Echo, Strain, [...] estimate PA systolic pressure. MEASUREMENTS: 2DParasternal [place] Ao An 2.2 cm LVPWd 1.3 cm [...] 3.7 l/m/m2 Signed 03/19/2020 02:20 Dodie Sarabia M.D.[facility] Lower Extremity Wo Contrast [id number] 13:07:30EXAMINATION: MRI LOWER EXTREMITY WO CONTRAST RIGHT [...] cortex ofthe tibia. 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 Migration of the tibial componentis seen medially, beyond the cortex of the tibia.1D2RAD_PS08[facility] THIGH WO CONTRAST [id number] 12:29:55EXAMINATION: MRI KNEE WO CONTRAST RIGHT, MRI [...] with the fluid surrounding the tibial stem. [facility]-FMDUMF3Oa Interface, Radiology Results Incoming - 03/19/2020 6:33 [...] communicate with the fluid surrounding the tibial stem.[facility]-KBJNAT7Yisfvazkj [facility] Knee Right Wo Wifmvooz5238-11-16 12:29:55EXAMINATION: MRI KNEE WO CONTRAST RIGHT, MRI [...] with the fluid surrounding the tibial stem. [id number] Interface, Radiology Results - 03/19/2020 6:33 AM [...] with the fluid surro unding the tibial stem.RM-QEQBQE7SmikkgwjxJohn Peter Smith HospitalUrine [id number] 23:38:48 Test Item Value Reference Range Interpretation Comments Urine culture (test code = SEE COMMENT [id number]) [facility] HospitalXR Knee 1 Or 2 Vw [id number] 23:14:12EXAMINATION: XR KNEE 1 OR 2 VW RIGHT CLINICAL HISTORY: PAin and swelling COMPARISON: None IMPRESSION: There is a large zone of lucency around the stems of the femoral and tibial components of the totalknee replacement, consistent with loosening. Infection cannot be excluded. There is a joint effusionpresent. There is no acute fracture or dislocation. There are vascular calcifications. [id number] Interface, Radiology Results 03/18/2020 5:17 PM CST EXAMINATION: XR KNEE 1 OR 2 VW RIGHTCLINICAL HISTORY: PAin and swellingCOMPARISON: NoneIMPRESSION:There is a large zone of lucency 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 Infection cannot be excluded. There is a joint effusion present. There is no acute fracture or dislocation. 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 Infection cannot be excluded. Bones are osteopenic. No definite acute fracture is seen. [facility]-[id number] Interface, Radiology Results 03/18/2020 5:09 PM CST EXAMINATION: XR TIBIA FIBULA 2 VW RIGHTCLINICAL HISTORY: L leg cellulitisCOMPARISON: NoneIMPRESSION:There is evidence of loosening of tibial component of kneeprosthesis, with large zone of lucency around the stem. Infection cannot be excluded. Bones are osteopenic. No definite acute fracture is seen.[facility]-[id number] [facility] [id number] 02:22:00 Test Item Value Reference Range Interpretation Comments TROPONIN I (test <0.012 See_Comment [Automated code = 2484096990) message] The system which generated this result [...] ? Lab Interpretation Normal (test code = 89662-4) [facility] [id number] 02:20:00 Test Item Value Reference Range Interpretation Comments TROPONIN I (test <0.012 See_Comment [Automated code = 0521334413) message] The system which generated this result [...] ? Lab Interpretation Normal (test code = 57739-0) [facility]IS2020-10-01 00:21:00 Test Item Value Reference Range Interpretation Comments APPEARANCE (test code = Clear Clear 4364739669) COLOR (test code = Yellow Yellow 6748975378) PH (test code = 4.8-8.0 7511513977) SP GRAVITY (test code = 1.003-1.030 3546229200) GLU U QUAL (test code = Normal Normal 5706135572) BLOOD (test code = Negative Negative 4652932656) KETONES (test code = Negative Negative 8841928324) PROTEIN (test code = 100 mg/dL Negative A 2887-8) UROBILIN (test code = Normal Normal 5036382914) BILIRUBIN (test code = Negative Negative 1858067534) NITRITE (test code = Negative Negative 1434730985) LEUK AJ (test code = Negative Negative 4399734805) RBC/HPF (test code = See_Comment H [Autom ated message] 8130075473) The system [employer] generated this result transmit amado reference range : 0 - 3 HPF. The refe rence range was not u sed to interpret th is result as normal/abnormal . WBC/HPF (test code = <1 See_Comment [Autom ated message] 7802235669) The system [employer] generated this result transmit amado reference range : 0 - 5 HPF. The refe rence range was not u sed to interpret th is result as normal/abnormal . BACTERIA (test code = Few Negative A 6939121780) MUCOUS (test code = Slight Negative LPF A 0614828283) SQ EPITH (test code = <1 HPF 6812938867) Lab Interpretation (test Abnormal code = 20574-6) [facility]UR[facility]IS2020-10-01 00:21:00 Test Item Value Reference Range Interpretation Comments APPEARANCE (test code = Clear Clear 4871181760) COLOR (test code = Yellow Yellow 4244154995) PH (test code = 4.8-8.0 2173478540) SP GRAVITY (test code = 1.003-1.030 6972108604) GLU U QUAL (test code = Normal Normal 1797506841) BLOOD (test code = Negative Negative 6055474404) KETONES (test code = Negative Negative 6888715175) PROTEIN (test code = 100 mg/dL Negative A 2887-8) UROBILIN (test code = Normal Normal 9796966136) BILIRUBIN (test code = Negative Negative 5082210335) NITRITE (test code = Negative Negative 1996145418) LEUK AJ (test code = Negative Negative 6694777411) RBC/HPF (test code = See_Comment H [Autom ated message] 7572705853) The system [employer] generated this result transmit amado reference range : 0 - 3 HPF. The refe rence range was not u sed to interpret th is result as normal/abnormal . WBC/HPF (test code = <1 See_Comment [Autom ated message] 5764461799) The system [employer] generated this result transmit amado reference range : 0 - 5 HPF. The refe rence range was not u sed to interpret th is result as normal/abnormal . BACTERIA (test code = Few Negative A 8362881757) MUCOUS (test code = Slight Negative LPF A 1228964932) SQ EPITH (test code = <1 HPF 0751066284) Lab Interpretation (test Abnormal code = 77924-6) [facility] CenterXR CHEST 1 [id number] 23:24:26 No acute cardiopulmonary abnormality. Preliminary Report [...] reviewed this study and agree with theabove report.[facility] CenterXR CHEST 1 [id number] 23:24:26 No acute cardiopulmonary abnormality. Preliminary Report Dictated by Resident: Kavita Eden MD., have reviewed this study and agree with theabove report.EXAM: XR CHEST 1 VW HISTORY: palpitations COMPARISON: None Technique: ?AP view radiograph of the chest FINDINGS: The lungs are clear. No focal consolidation, pleural effusion orpneumothorax is seen. The cardiac silhouette is normal in size. No acute bony abnormality. [facility], Radiant Results Inft User - 11/11/2019 6:25 PM CDTEXAM: XR CHEST 1 VWHISTORY: palpitations COMPARISON: NoneTechnique: AP view radiograph of the chestFI NDINGS:The lungs are clear. No focal consolidation, pleural effusion orpneumothorax is seen. The cardiac silhouette is normal in size.No acute bony abnormality.IMPRESSIONNo acute cardiopulmonary abnormality.Preliminary Report Dictated by Resident: Kavita Bradshaw MD., have reviewed this study and agree with theabove report.[facility] COMP. METABOLIC PANEL (82374)2019-11-11 23:16:00 Test Item Value Reference Range Interpretation Comments NA (test code = 137 mmol/L 135-145 5191798014) K (test code = 4.0 mmol/L 3.5-5 2916306561) CL (test code = 94 mmol/L 98-108 L 6153234818) CO2 TOTAL (test code = 29 mmol/L 23-31 4331746545) AGAP (test code = 2-16 9478019504) BUN (test code = 63 mg/dL 7-23 H 0748498953) GLUCOSE (test code = 142 mg/dL 70-110 H 1659386874) CREATININE (test code = 5.82 mg/dL 0.6-1.25 H 9647372028) TOTAL BILI (test code = 0.4 mg/dL 0.1-1.7 0524172841) CALCIUM (test code = 9.8 mg/dL 8.6-10.6 6312885999) T PROTEIN (test code = 7.5 g/dL 6.3-8.2 3332739676) ALBUMIN (test code = 4.2 g/dL 3.5-5 4184759821) ALK PHOS (test code = 100 U/L 34-122 3996945171) ALTv (test code = 14 U/L 5-50 1742-6) AST(SGOT) (test code = 27 U/L 13-40 2982592472) eGFR Calculation mL/min/1.73m2 (Non-) (test code = 4218915660) eGFR Calculation mL/min/1.73m2 () (test code = 9536564394) JACQUELYN (test code = JACQUELYN) Association of [...] tests). Lab Interpretation Abnormal (test code = 57443-0) [facility] CenterMAGNESIUM2020-09-30 23:16:00 Test Item Value Reference Range Interpretation Comments MAGNESIUM (test code = 0488796091) 2.5 mg/dL 1.7-2.4 H Lab Interpretation (test code = Abnormal 64747-0) [facility] CenterCOMP. METABOLIC PANEL (88681)2019-11-11 23:16:00 Test Item Value Reference Range Interpretation Comments NA (test code = 137 mmol/L 135-145 3955737792) K (test code = 4.0 mmol/L 3.5-5 4038421645) CL (test code = 94 mmol/L 98-108 L 3365588294) CO2 TOTAL (test code = 29 mmol/L 23-31 2380696827) AGAP (test code = 2-16 6061480079) BUN (test code = 63 mg/dL 7-23 H 9498200439) GLUCOSE (test code = 142 mg/dL 70-110 H 5724245981) CREATININE (test code = 5.82 mg/dL 0.6-1.25 H 6242996302) TOTAL BILI (test code = 0.4 mg/dL 0.1-1.2 6729976337) CALCIUM (test code = 9.8 mg/dL 8.6-10.6 4057480035) T PROTEIN (test code = 7.5 g/dL 6.3-8.2 5354045207) ALBUMIN (test code = 4.2 g/dL 3.5-5 5931607373) ALK PHOS (test code = 100 U/L 34-122 8627308323) ALTv (test code = 14 U/L 5-50 1742-6) AST(SGOT) (test code = 27 U/L 13-40 0451845963) eGFR Calculation mL/min/1.73m2 (Non-) (test code = 7461837721) eGFR Calculation mL/min/1.73m2 () (test code = 3316986796) JACQUELYN (test code = JACQUELYN) Association of [...] tests). Lab Interpretation Abnormal (test code = 33831-6) [facility] 23:16:00 Test Item Value Reference Range Interpretation Comments MAGNESIUM (test code = 6470311277) 2.5 mg/dL 1.7-2.4 H Lab Interpretation (test code = Abnormal 08379-6) [facility] WITH [id number] 22:53:00 Test Item Value Reference Range Interpretation [...] RDW-SD (test code = 46.1 fL 38.5-51.6 51219-2) RDW-CV (test code = 13.9 % 12.1-15.4 788-0) PLT (test code = See_Comment [Automated 777-3) message] The sy stem which generated this result transmitted reference range : 150 - 328 10*3/ ?L. The reference r za was not used to interpret this result as normal/abnormal . MPV (test code = 8.7 fL 9.8-13 L 28026-2) NRBC/100 WBC (test See_Comment [Automat ed code = 4410452343) message] The system which generated this result transmitted reference range : 0.0 - 10.0 /100 WBCs. The refer ence range was not u sed to interpret th is result as normal/abnormal . NRBC x10^3 (test code <0.01 See_Comment [Auto mated = [id number]) message] The s ystem which generated this result transmitted reference range : 10*3/?L. The reference range was not used to interpret this result as normal/abnormal . GRAN MAT (NEUT) % 79.0 % (test code = 770-8) IMM GRAN % (test code 0.50 % = 4231284912) LYMPH % (test code = 7.3 % 736-9) MONO % (test code = 9.1 % 5905-5) EOS % (test code = 3.8 % 713-8) BASO % (test code = 0.3 % 706-2) GRAN MAT x10^3(ANC) 6.93 10*3/uL 1.99-6.95 (test code = 2946834248) IMM GRAN x10^3 (test 0.04 10*3/uL 0-0.06 code = 3024266942) LYMPH x10^3 (test code 0.64 10*3/uL 1.09-3.23 L = 731-0) MONO x10^3 (test code 0.80 10*3/uL 0.36-1.02 = 742-7) EOS x10^3 (test code = 0.33 10*3/uL 0.06-0.53 711-2) BASO x10^3 (test code 0.03 10*3/uL 0.01-0.09 = 704-7) Lab Interpretation Abnormal (test code = 39747-5) [facility] WITH [id number] 22:53:00 Test Item Value Reference Range Interpretation [...] RDW-SD (test code = 46.1 fL 38.5-51.6 16409-3) RDW-CV (test code = 13.9 % 12.1-15.4 788-0) PLT (test code = See_Comment [Automated 777-3) message] The sy stem which generated this result transmitted reference range : 150 - 328 10*3/ ?L. The reference r za was not used to interpret this result as normal/abnormal . MPV (test code = 8.7 fL 9.8-13 L 71665-3) NRBC/100 WBC (test See_Comment [Automat ed code = 9182794884) message] The system which generated this result transmitted reference range : 0.0 - 10.0 /100 WBCs. The refer ence range was not u sed to interpret th is result as normal/abnormal . NRBC x10^3 (test code <0.01 See_Comment [Auto mated = 0736792827) message] The s ystem which generated this result transmitted reference range : 10*3/?L. The reference range was not used to interpret this result as normal/abnormal . GRAN MAT (NEUT) % 79.0 % (test code = 770-8) IMM GRAN % (test code 0.50 % = 6248274987) LYMPH % (test code = 7.3 % 736-9) MONO % (test code = 9.1 % 5905-5) EOS % (test code = 3.8 % 713-8) BASO % (test code = 0.3 % 706-2) GRAN MAT x10^3(ANC) 6.93 10*3/uL 1.99-6.95 (test code = 0209931045) IMM GRAN x10^3 (test 0.04 10*3/uL 0-0.06 code = 0417732301) LYMPH x10^3 (test code 0.64 10*3/uL 1.09-3.23 L = 731-0) MONO x10^3 (test code 0.80 10*3/uL 0.36-1.02 = 742-7) EOS x10^3 (test code = 0.33 10*3/uL 0.06-0.53 711-2) BASO x10^3 (test code 0.03 10*3/uL 0.01-0.09 = 704-7) Lab Interpretation Abnormal (test code = 46446-8) [facility] CenterCT, EXTREMITY, LOWER WITHOUT CONTRAST, RIGHT [...] Kumar Verified Date/Time: 01/25/2017 19:47:23 Reading Location: [address] Reading Room RAD, HIP, 2 VIEWS, [...] Kumar Verified Date/Time: 01/25/2017 19:11:49 [address] Chemistry 2014-02-18 16:35:37793Bzdjaecn PhfckxvQoakpyich2378-89-26 16:35:71177Hyjnkvqb CcdybzzZffwpwdxt7965-43-72 16:35:0032[facility] RpopssjBfdnmouze2670-74-96 16:35:48372Hhkjzmwh IkzxgawWnzjfhrfx1568-58-88 16:35:47858 MEQ/LMemorial Jimmy Dwpcyjxdc0104-06-56 16:35:004.3 MEQ/LMemorial QvsbuufGkpbayrat8371-67-69 16:35:002.5[facility] UdjyinuElxqxiylx4558-47-74 16:35:0029[facility] Roslyn Stwpvctwx9416-03-69 16:35:00 Test Item Value Reference Range Interpretation Comments BUN/CREAT (test code = BUN/CREAT) 12 1 6-25 [facility] PukacqnRkqcdbony8716-51-08 16:35:004.2[facility] HermannChemistry 2014-02-18 16:35:008.9[facility] TuucyhfVaixmljtp3730-86-05 16:35:0036[facility] HwnyfayUgdahsstw3699-10-15 16:35:0025[facility] PtiuowkAjbjhozia1860-65-99 16:35:85031Stylpqpr XwkgxphXeyzyjpxl0704-96-97 16:35:001.380[facility] Kpjfavwge8335-36-90 16:35:002.00[facility] JmlmaljKfrlnruizy3442-10-07 16:35:00 13.9[facility] RpgmpklKokzgsmill7904-56-55 16:35:0041.4[facility] HermannHematology 2014-02-18 16:35:18145 K/CMMMemorial MlmvclvWgxuncol7064-82-06 16:35:00Non ReactiveMemorial TngayghPtxegytax5918-46-19 16:35:56240Htehtjhs HermannChemistry 2014-02-18 16:35:05311Czrgecms XwbqkxcDokiysudb7189-75-20 16:35:0032[facility] JjgdisqKloedqmgz7591-22-14 16:35:89771Htuqhfon YllpzyqRajayftri0341-39-58 16:35:93771 MEQ/LMemorial TfxsrdfRkkjeospf3946-56-07 16:35:004.3 MEQ/LMemorial LfrdcgiRkueuxmut1751-08-85 16:35:002.5[facility] DeuxargYwtggguud0160-26-71 16:35:0029[facility] JbksaciOyjrpvedt5568-97-60 16:35:00 Test Item Value Reference Range Interpretation Comments BUN/CREAT (test code = BUN/CREAT) 12 1 6-25 [facility] AtancliTiylncruy8515-22-80 16:35:004.2[facility] HermannChemistry 2014-02-18 16:35:008.9[facility] WeqgfmqPpzprssju8943-65-47 16:35:0036[facility] OppwvwxXdzwymgdj9420-84-29 16:35:0025[facility] OsyzpxzUmcqqmxsw3576-10-42 16:35:30827Pjgedwaf WxsbwgtLspkawlxo4741-10-76 16:35:001.380[facility] Qnhvcpxtu1227-37-22 16:35:002.00[facility] PrqstfkYovvvmccxy3133-81-82 16:35:00 13.9[facility] RcehmekFhnsoqdzwa0040-85-09 16:35:0041.4[facility] HermannHematology 2014-02-18 16:35:43017 K/CMMMemorial NkcmboeZphrllao8355-17-96 16:35:00Non ReactiveMemorial QrcsaqqXylzmqdog5646-02-21 20:45:23847Vgaptgoz HermannChemistry 2013-01-23 20:45:51086Xwxwjjrh FxisbvvPpcizywpv6632-67-25 20:45:0023[facility] IjainxxOvvkyxsyf1276-20-01 20:45:93430Tnxkgdlg EeyxrkzAjvzgvnif9565-02-28 20:45:31724Bdngphqf CermaveOanvtjebo6268-90-14 20:45:0023[facility] Rszxyidht0714-81-53 20:45:00See Note mg/dLMemorial AldhrctBsozanlyg7666-46-93 20:45:91364 MEQ/LMemorial FnnyifpVdvzpuhps5374-60-21 20:45:004.5 MEQ/LMemorial AyqpmfmEpkhsnicc0594-86-69 20:45:001.8[facility] QmbrfkvTanydktnt7294-56-70 20:45:0030[facility] LqgxqehLdnwygtti9374-12-41 20:45:00 Test Item Value Reference Range Interpretation Comments BUN/CREAT (test code = BUN/CREAT) 17 1 6-25 [facility] UfwapcnGfpjinyok7452-93-57 20:45:004.2[facility] HermannChemistry 2013-01-23 20:45:009.3[facility] AqsgrmgXzicpobzz3741-85-93 20:45:0031[facility] HavvukxKzastjkpo0815-09-00 20:45:0020[facility] BjwuhaiJfldojqoy0840-89-66 20:45:04661Tzweycwb EekjjiiAzudwqkwi8244-63-16 20:45:001.390[facility] Uhofoqfrd3723-60-22 20:45:001.33[facility] VwckaqdNkrngdmuv2813-29-04 20:45:30894 [facility] CepglknTvtyrygqb4436-65-48 20:45:32430Ibfjnwni HermannChemistry 2013-01-23 20:45:0023[facility] GodiyhpDnemjdgcq2023-02-00 20:45:01616Wsqleefm PevgovpSzybxzzwl5345-21-07 20:45:85285Ngljysfi TfooppdWuypdmlsa3490-76-71 20:45:0023[facility] JjscspvDheopsmpl9396-40-37 20:45:00See Note mg/dLMemorial PnlksdpHocizigvw2565-22-78 20:45:27508 MEQ/LMemorial UdscbkgDftbxmfzu5390-11-49 20:45:004.5 MEQ/LMemorial KnuppggLoebydule1686-59-07 20:45:001.8[facility] Byvqxyrbw6628-10-10 20:45:0030[facility] PwymtkdSdhchrdjm9628-00-68 20:45:00 Test Item Value Reference Range Interpretation Comments BUN/CREAT (test code = BUN/CREAT) 17 1 6-25 [facility] EkdrvioPjihwixlt0423-56-05 20:45:004.2[facility] HermannChemistry 2013-01-23 20:45:009.3[facility] MzjrfqcAvykqdzlw5081-17-81 20:45:0031[facility] NdgnkzmElgtazyyo7427-50-89 20:45:0020[facility] AqabmhqTaqxtfrpt1711-95-55 20:45:67566Ydwuoynw XderryrDezgeiupg2728-01-65 20:45:001.390[facility] Cffzymfud6523-16-02 20:45:001.33[facility] TnxahsqZiygejlyo3665-31-86 15:12:571.57 [facility] SvnmguaUwitbfdtq7932-26-80 15:12:571.57[facility]annChemistry 2012-04-02 15:12:571.57[facility] FmebwziBertvjyom7494-97-19 15:12:571.57[facility] History and Physical Notes Date/Time Note Provider Source 2021-12-23 19:27:00-00:00 Tejal Bedoya MD: PERFORM, MODIFY, [facility] MODIFY, MODIFY, SIGN, VERIFY, MODIFY, SIGNEvent Display: History and PhysicalAuthored Date: [id number] Care Note:75y/o WM w/ sig h/o diverticular bleed x 3 this year - received massive blood transfusion, ESRD M&F, HTN, HLD, CAD w/ prior stents x 3 in 2012 - on ASA and Plavix (off since last Sat), BPH, GERD, - presented to [facility] as a transfer for lower GIB - BRBPR. Pt was seen and examined in ICU bed 9 - already asking to have his Ambien 10mg nightly for sleep.PMHx: As per HPISurg Hx: R AKA, colon rxnFam Hx: CAD, COPDSoc Hx: denied tobacco/ etoh/ IVDA Allergies: pcn - unknown - ok w/ Cephalosporins; diarrhea and vomiting of iodine.Daily Summary: 12/16 - Adm to icu for BRBPRLabs/ Imagings - reviewed. WBC H 15.8 (DEC 16)Hgb L 10.3 (DEC 16)Hct L 30.6 (DEC 16)Plt 295 (DEC 16)Na 141 (DEC 16)K 4.6 (DEC 16)CO2 L 21 (DEC 16)Cl 109 (DEC 16)Cr H 3.30 (DEC 16)BUN H 33 (DEC 16)Glucose Random H 163 (DEC 16)Mg L 1.6 (DEC 16)Phos 3.9 (DEC 16)Ca L 7.8 (DEC 16)Vitals Tmp(F)Pulse BP RR SpO2 EPL887/05 09:30 ---- 81 134/62 10 97 ---12/16 09:00 ---- 82 139/60 18 97 ---12/16 08:30 ---- 79 131/55 23 96 ---12/16 08:00 ---- 79 137/54 26 95 ---12/16 07:30 ---- 73 107/59 24 94 ---24 Hr Tmax: 97.6F (36.44c) at 12/16 07:00Physical Exam: Vitals: Afebrile in last 24hrs; HDS; SR; SpO2 97% on RAROS: denied CP/ abd painOther than what is documented above, the rest of the 14 review of systems asked are all negative.Gen'l: AA&O x 4, in NAD sitting up in bedH and N: NC/AT, PERRLA, EOMI, MMM. No goiter; neck is supple.Neuro: Moving all 3 extremities.Card: RRRPulm: CTAB; no wheeze. Abd: Soft; NBS; NT/NDExt: A/P:Neuro:H/o Depression and insomnia-Avoid sedatives/ narcotics/ BZD - as much as possible-Preserve sleep/ wake cycles w/ freq nl-kkkvjhasbsu-JW/ OT/ OOB->Chair.-Resume home Trazodone, Sertraline and Ambien (5mg instead of 10)Pulm: No acute issue.CV:H/o CAD w/ prior stents x 3 in 2011 - on ASA and Plavix (off since 12/09)H/o HTN and HLD-cont to hold ASA and Plavix in setting of active LGIB-PRN hydralazine/ labetalol for SBP >140-Resume home Metoprolol 12.5mg q 12 w/ holding parameters-Hold Lasix and pt was not taking his Welchol w/ LDL of 37 - will hold off on starting statin at this timeGI/Nut:BRBPR w/ h/o diverticular hemorrhage requiring massive transfusion and partial colectomy - 3 episodes of diverticular bleeding in 2Recent dx of diverticulitisH/o GERD-NPO for now-Dr. Juarez is on board-CTA Abd/pel (12/16) mild colonic diverticulosis w/ mild acute diverticulitis of L side of transverse colon. Possible small residual intraluminal hemorrhage at sigmoid colon. Subtle curvilinear areas of enhancement seen in the distal rectum and anus suggesting small vessels, hemorrhoids, or minimal extravasation. Renal:ESRD on HD MF via LUE w/ h/o R nephrectomyElectrolytes abnormality - HypomagnesemiaH/o BPHMild non-anion gap metabolic acidosis w/ norm lactate-Replace electrolytes as indicated-Daily labs for now-renal dose all medsID:Leukocytosis possible 2/2 diverticulitis/ reactive -Cont Flagyl (12/16-12/22) from home started for diverticulitis, but will hold Cipro-Cont to monitor and trend procal ( 0.99)/ WBC (15.8)/ fever curve-Neg MRSA pcr-Minimal L hydroureteronephrosis with mild thickening of the left renal pelvis that may represent mild pyelitis or pyelonephritis.Heme:Acute blood loss anemia via LGIB on chronic normocytic anemia 2/2 anemia in chronic dz -Cont to monitor/ trend Hb/ plt/ and monitor for acute bleeding-No indication for transfusion at this timeEndo: No acute issue - no h/o DM w/ Hba1c of 5.1; no indication for "routine fingersticks" unless fasting/ am glucose is >150 or sign/ symptom of hypoglycemia. TSH wnlMSK:Prior R AKA-Wound/ skin care as per unit protocol-Optimize nutritional supportGI Prophylaxis: Protonix IV q 12DVT Prophylaxis: Active GIB preclude pharm prophy; encourage inc mobilization - PT has been consultedNo family at bedside. Pt is FULL CODE.This patient is critically ill due to presenting with an illness that impairs one or more vital organ systems. There was a high probability of imminent or life-threatening deterioration in the patient s condition. I spent a cumulative 38 minutes of non-concurrent critical care time directly related to this individual patient s care involving the evaluation, coordination, and management of the patient. This includes only time spent at the immediate bedside or elsewhere on the patient s floor or unit and is not inclusive of any time spent performing invasive procedures.Tejal Bedoya MDElectronically Signed: 12/17/21 05:23 2021-12-23 19:27:00-: Tejal Bedoya MD: [facility] Display: History and PhysicalAuthored Date: [id number]: Ext - trace edema in L LE; R Tejal Pickens MDElectronically Signed: 12/18/21 08:04 2021-12-23 19:27:00-:00 Tejal Bedoya MD: PERFORM, MODIFY, [facility] MODIFY, MODIFY, SIGN, VERIFY, MODIFY, SIGNEvent Display: History and PhysicalAuthored Date: [id number] Care Note:75y/o WM w/ sig h/o diverticular bleed x 3 this year - received massive blood transfusion, ESRD M&F, HTN, HLD, CAD w/ prior stents x 3 in 2011 - on ASA and Plavix (off since last Sat), BPH, GERD, - presented to [facility] as a transfer for lower GIB - BRBPR. Pt was seen and examined in ICU bed 9 - already asking to have his Ambien 10mg nightly for sleep.PMHx: As per HPISurg Hx: R AKA, colon rxnFam Hx: CAD, COPDSoc Hx: denied tobacco/ etoh/ IVDA Allergies: pcn - unknown - ok w/ Cephalosporins; diarrhea and vomiting of iodine.Daily Summary: 12/16 - Adm to icu for BRBPRLabs/ Imagings - reviewed. WBC H 15.8 (DEC 16)Hgb L 10.3 (DEC 16)Hct L 30.6 (DEC 16)Plt 295 (DEC 16)Na 141 (DEC 16)K 4.6 (DEC 16)CO2 L 21 (DEC 16)Cl 109 (DEC 16)Cr H 3.30 (DEC 16)BUN H 33 (DEC 16)Glucose Random H 163 (DEC 16)Mg L 1.6 (DEC 16)Phos 3.9 (DEC 16)Ca L 7.8 (DEC 16)Vitals Tmp(F)Pulse BP RR SpO2 HLP649/05 09:30 ---- 81 134/62 10 97 ---12/16 09:00 ---- 82 139/60 18 97 ---12/16 08:30 ---- 79 131/55 23 96 ---12/16 08:00 ---- 79 137/54 26 95 ---12/16 07:30 ---- 73 107/59 24 94 ---24 Hr Tmax: 97.6F (36.44c) at 12/16 07:00Physical Exam: Vitals: Afebrile in last 24hrs; HDS; SR; SpO2 97% on RAROS: denied CP/ abd painOther than what is documented above, the rest of the 14 review of systems asked are all negative.Gen'l: AA&O x 4, in NAD sitting up in bedH and N: NC/AT, PERRLA, EOMI, MMM. No goiter; neck is supple.Neuro: Moving all 3 extremities.Card: RRRPulm: CTAB; no wheeze. Abd: Soft; NBS; NT/NDExt: A/P:Neuro:H/o Depression and insomnia-Avoid sedatives/ narcotics/ BZD - as much as possible-Preserve sleep/ wake cycles w/ freq xz-srllqokkllm-CU/ OT/ OOB->Chair.-Resume home Trazodone, Sertraline and Ambien (5mg instead of 10)Pulm: No acute issue.CV:H/o CAD w/ prior stents x 3 in 2011 - on ASA and Plavix (off since 12/09)H/o HTN and HLD-cont to hold ASA and Plavix in setting of active LGIB-PRN hydralazine/ labetalol for SBP >140-Resume home Metoprolol 12.5mg q 12 w/ holding parameters-Hold Lasix and pt was not taking his Welchol w/ LDL of 37 - will hold off on starting statin at this timeGI/Nut:BRBPR w/ h/o diverticular hemorrhage requiring massive transfusion and partial colectomy - 3 episodes of diverticular bleeding in 2Recent dx of diverticulitisH/o GERD-NPO for now-Dr. Juarez is on board-CTA Abd/pel (12/16) mild colonic diverticulosis w/ mild acute diverticulitis of L side of transverse colon. Possible small residual intraluminal hemorrhage at sigmoid colon. Subtle curvilinear areas of enhancement seen in the distal rectum and anus suggesting small vessels, hemorrhoids, or minimal extravasation. Renal:ESRD on HD MF via LUE w/ h/o R nephrectomyElectrolytes abnormality - HypomagnesemiaH/o BPHMild non-anion gap metabolic acidosis w/ norm lactate-Replace electrolytes as indicated-Daily labs for now-renal dose all medsID:Leukocytosis possible 2/2 diverticulitis/ reactive -Cont Flagyl (12/16-12/22) from home started for diverticulitis, but will hold Cipro-Cont to monitor and trend procal ( 0.99)/ WBC (15.8)/ fever curve-Neg MRSA pcr-Minimal L hydroureteronephrosis with mild thickening of the left renal pelvis that may represent mild pyelitis or pyelonephritis.Heme:Acute blood loss anemia via LGIB on chronic normocytic anemia 2/2 anemia in chronic dz -Cont to monitor/ trend Hb/ plt/ and monitor for acute bleeding-No indication for transfusion at this timeEndo: No acute issue - no h/o DM w/ Hba1c of 5.1; no indication for "routine fingersticks" unless fasting/ am glucose is >150 or sign/ symptom of hypoglycemia. TSH wnlMSK:Prior R AKA-Wound/ skin care as per unit protocol-Optimize nutritional supportGI Prophylaxis: Protonix IV q 12DVT Prophylaxis: Active GIB preclude pharm prophy; encourage inc mobilization - PT has been consultedNo family at bedside. Pt is FULL CODE.This patient is critically ill due to presenting with an illness that impairs one or more vital organ systems. There was a high probability of imminent or life-threatening deterioration in the patient s condition. I spent a cumulative 38 minutes of non-concurrent critical care time directly related to this individual patient s care involving the evaluation, coordination, and management of the patient. This includes only time spent at the immediate bedside or elsewhere on the patient s floor or unit and is not inclusive of any time spent performing invasive procedures.Tejal Bedoya MDElectronically Signed: 12/17/21 05:23 2021-12-23 19:27:00-: Tejal Bedoya MD: [facility] Display: History and PhysicalAuthored Date: [id number]: Ext - trace edema in L LE; R Tejal Pickens MDElectronically Signed: 12/18/21 08:04 2021-12-23 19:27:00-: Tejal Bedoya MD: PERFORM, MODIFY, [facility] MODIFY, MODIFY, SIGN, VERIFY, MODIFY, SIGNEvent Display: History and PhysicalAuthored Date: [id number] Care Note:75y/o WM w/ sig h/o diverticular bleed x 3 this year - received massive blood transfusion, ESRD M&F, HTN, HLD, CAD w/ prior stents x 3 in 2011 - on ASA and Plavix (off since last Sat), BPH, GERD, - presented to [facility] as a transfer for lower GIB - BRBPR. Pt was seen and examined in ICU bed 9 - already asking to have his Ambien 10mg nightly for sleep.PMHx: As per HPISurg Hx: R AKA, colon rxnFam Hx: CAD, COPDSoc Hx: denied tobacco/ etoh/ IVDA Allergies: pcn - unknown - ok w/ Cephalosporins; diarrhea and vomiting of iodine.Daily Summary: 12/16 - Adm to icu for BRBPRLabs/ Imagings - reviewed. WBC H 15.8 (DEC 16)Hgb L 10.3 (DEC 16)Hct L 30.6 (DEC 16)Plt 295 (DEC 16)Na 141 (DEC 16)K 4.6 (DEC 16)CO2 L 21 (DEC 16)Cl 109 (DEC 16)Cr H 3.30 (DEC 16)BUN H 33 (DEC 16)Glucose Random H 163 (DEC 16)Mg L 1.6 (DEC 16)Phos 3.9 (DEC 16)Ca L 7.8 (DEC 16)Vitals Tmp(F)Pulse BP RR SpO2 NIG058/05 09:30 ---- 81 134/62 10 97 ---12/16 09:00 ---- 82 139/60 18 97 ---12/16 08:30 ---- 79 131/55 23 96 ---12/16 08:00 ---- 79 137/54 26 95 ---12/16 07:30 ---- 73 107/59 24 94 ---24 Hr Tmax: 97.6F (36.44c) at 12/16 07:00Physical Exam: Vitals: Afebrile in last 24hrs; HDS; SR; SpO2 97% on RAROS: denied CP/ abd painOther than what is documented above, the rest of the 14 review of systems asked are all negative.Gen'l: AA&O x 4, in NAD sitting up in bedH and N: NC/AT, PERRLA, EOMI, MMM. No goiter; neck is supple.Neuro: Moving all 3 extremities.Card: RRRPulm: CTAB; no wheeze. Abd: Soft; NBS; NT/NDExt: A/P:Neuro:H/o Depression and insomnia-Avoid sedatives/ narcotics/ BZD - as much as possible-Preserve sleep/ wake cycles w/ freq nw-pnwxotuontz-VQ/ OT/ OOB->Chair.-Resume home Trazodone, Sertraline and Ambien (5mg instead of 10)Pulm: No acute issue.CV:H/o CAD w/ prior stents x 3 in 2011 - on ASA and Plavix (off since 12/09)H/o HTN and HLD-cont to hold ASA and Plavix in setting of active LGIB-PRN hydralazine/ labetalol for SBP >140-Resume home Metoprolol 12.5mg q 12 w/ holding parameters-Hold Lasix and pt was not taking his Welchol w/ LDL of 37 - will hold off on starting statin at this timeGI/Nut:BRBPR w/ h/o diverticular hemorrhage requiring massive transfusion and partial colectomy - 3 episodes of diverticular bleeding in 2Recent dx of diverticulitisH/o GERD-NPO for now-Dr. Juarez is on board-CTA Abd/pel (12/16) mild colonic diverticulosis w/ mild acute diverticulitis of L side of transverse colon. Possible small residual intraluminal hemorrhage at sigmoid colon. Subtle curvilinear areas of enhancement seen in the distal rectum and anus suggesting small vessels, hemorrhoids, or minimal extravasation. Renal:ESRD on HD MF via LUE w/ h/o R nephrectomyElectrolytes abnormality - HypomagnesemiaH/o BPHMild non-anion gap metabolic acidosis w/ norm lactate-Replace electrolytes as indicated-Daily labs for now-renal dose all medsID:Leukocytosis possible 2/2 diverticulitis/ reactive -Cont Flagyl (12/16-12/22) from home started for diverticulitis, but will hold Cipro-Cont to monitor and trend procal ( 0.99)/ WBC (15.8)/ fever curve-Neg MRSA pcr-Minimal L hydroureteronephrosis with mild thickening of the left renal pelvis that may represent mild pyelitis or pyelonephritis.Heme:Acute blood loss anemia via LGIB on chronic normocytic anemia 2/2 anemia in chronic dz -Cont to monitor/ trend Hb/ plt/ and monitor for acute bleeding-No indication for transfusion at this timeEndo: No acute issue - no h/o DM w/ Hba1c of 5.1; no indication for "routine fingersticks" unless fasting/ am glucose is >150 or sign/ symptom of hypoglycemia. TSH wnlMSK:Prior R AKA-Wound/ skin care as per unit protocol-Optimize nutritional supportGI Prophylaxis: Protonix IV q 12DVT Prophylaxis: Active GIB preclude pharm prophy; encourage inc mobilization - PT has been consultedNo family at bedside. Pt is FULL CODE.This patient is critically ill due to presenting with an illness that impairs one or more vital organ systems. There was a high probability of imminent or life-threatening deterioration in the patient s condition. I spent a cumulative 38 minutes of non-concurrent critical care time directly related to this individual patient s care involving the evaluation, coordination, and management of the patient. This includes only time spent at the immediate bedside or elsewhere on the patient s floor or unit and is not inclusive of any time spent performing invasive procedures.Tejal Bedoya MDElectronically Signed: 12/17/21 05:23 2021-12-23 19:27:00-00:00 Tejal Bedoya MD: [facility] Display: History and PhysicalAuthored Date: [id number]: Ext - trace edema in L LE; R Tejal Pickens MDElectronically Signed: 12/18/21 08:04 Notes Date/Time Note Provider Source 2021-12-19 13:06:05-00:00 PROCEDURE INFORMATION: [facility] Exam: XR Abdomen Exam date and time: 12/19/2021 1:16 PM Age: 76 years old Clinical indication: Pain; Additional info: /rec sean pain post-colonoscopy, evaluating for bowel perf TECHNIQUE: Imaging protocol: Radiologic exam of the abdomen . Views: Frontal supine view of the abdomen. 1 Vie w. COMPARISON: ABDOMEN/PELVIS GI BLEED CTA 12/16/2021 6:43 PM FINDINGS: Gastrointestinal tract: No pathologic bowel dist ention or obstruction. Intraperitoneal space: No pn eumoperitoneum appreciated. Numerous surgical clips are noted in the right side of the abdomen. Bones/joints: Unremarkable. Soft tissues: No abnormal radiopaque densities. IMPRESSION: No bowel distention or pneumoperiton eum identified. Sekou Santiago MD On 12/19/2021 14:58:37; [id number] 2021-12-19 13:06:05-00:00 PROCEDURE INFORMATION: [facility] Exam: XR Abdomen Exam date and time: 12/19/2021 1:16 PM Age: 76 years old Clinical indication: Pain; Additional info: /rec sean pain post-colonoscopy, evaluating for bowel perf TECHNIQUE: Imaging protocol: Radiologic exam of the abdomen . Views: Frontal supine view of the abdomen. 1 Vie w. COMPARISON: ABDOMEN/PELVIS GI BLEED CTA 12/16/2021 6:43 PM FINDINGS: Gastrointestinal tract: No pathologic bowel dist ention or obstruction. Intraperitoneal space: No pn eumoperitoneum appreciated. Numerous surgical clips are noted in the right side of the abdomen. Bones/joints: Unremarkable. Soft tissues: No abnormal radiopaque densities. IMPRESSION: No bowel distention or pneumoperiton eum identified. Sekou Santiago MD On 12/19/2021 14:58:37; [id number] 2021-12-19 13:06:05-00:00 PROCEDURE INFORMATION: [facility] Exam: XR Abdomen Exam date and time: 12/19/2021 1:16 PM Age: 76 years old Clinical indication: Pain; Additional info: /rec sean pain post-colonoscopy, evaluating for bowel perf TECHNIQUE: Imaging protocol: Radiologic exam of the abdomen . Views: Frontal supine view of the abdomen. 1 Vie w. COMPARISON: ABDOMEN/PELVIS GI BLEED CTA 12/16/2021 6:43 PM FINDINGS: Gastrointestinal tract: No pathologic bowel dist ention or obstruction. Intraperitoneal space: No pn eumoperitoneum appreciated. Numerous surgical clips are noted in the right side of the abdomen. Bones/joints: Unremarkable. Soft tissues: No abnormal radiopaque densities. IMPRESSION: No bowel distention or pneumoperiton eum identified. Sekou Santiago MD On 12/19/2021 14:58:37; [id number] 2021-12-17 03:53:37-00:00 PROCEDURE INFORMATION: [facility] Exam: US Duplex Lower Extremity Veins, Bilateral Exam date and time: 12/17/2021 4:28 AM Age: 76 years old Clinical indication: /r/o dvt TECHNIQUE: Imaging protocol: Real-time Duplex ultrasound of the bilateral extremities with 2-D chaves scale, color Doppler flow and spectral waveform analysis with image documentation. Complete exam focused on the bila teral lower extremity veins. COMPARISON: ABDOMEN/PELVIS GI BLEED CTA 12/16/2021 6:43 PM FINDINGS: Right deep veins: Unremarkable. The comm on femoral, femoral, proximal profunda femoral veins are patent without thrombus. Miguel l Doppler waveforms. Normal compressibility and/or augmentation response. Right superficial veins: Saphenofemoral junction is patent without thrombus. Left deep veins: Unremarkable. The common femora l, femoral, proximal profunda femoral and popliteal veins are patent without t hrombus. Normal Doppler waveforms. Normal compressibility and/or augment ation response. Left superficial veins: Saphenofemoral junction is patent without thrombus. 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 IMPRESSION: No evidence of deep vein thrombosis. Nazia Sanford MD On 12/17/2021 05:39:24; [id number] 2021-12-17 03:53:37-00:00 PROCEDURE INFORMATION: [facility] Exam: US Duplex Lower Extremity Veins, Bilateral Exam date and time: 12/17/2021 4:28 AM Age: 76 years old Clinical indication: /r/o dvt TECHNIQUE: Imaging protocol: Real-time Duplex ultrasound of the bilateral extremities with 2-D chaves scale, color Doppler flow and spectral waveform analysis with image documentation. Complete exam focused on the bila teral lower extremity veins. COMPARISON: ABDOMEN/PELVIS GI BLEED CTA 12/16/2021 6:43 PM FINDINGS: Right deep veins: Unremarkable. The comm on femoral, femoral, proximal profunda femoral veins are patent without thrombus. Miguel l Doppler waveforms. Normal compressibility and/or augmentation response. Right superficial veins: Saphenofemoral junction is patent without thrombus. Left deep veins: Unremarkable. The common femora l, femoral, proximal profunda femoral and popliteal veins are patent without t hrombus. Normal Doppler waveforms. Normal compressibility and/or augment ation response. Left superficial veins: Saphenofemoral junction is patent without thrombus. 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 IMPRESSION: No evidence of deep vein thrombosis. Nazia Sanford MD On 12/17/2021 05:39:24; [id number] 2021-12-17 03:53:37-00:00 PROCEDURE INFORMATION: [facility] Exam: US Duplex Lower Extremity Veins, Bilateral Exam date and time: 12/17/2021 4:28 AM Age: 76 years old Clinical indication: /r/o dvt TECHNIQUE: Imaging protocol: Real-time Duplex ultrasound of the bilateral extremities with 2-D chaves scale, color Doppler flow and spectral waveform analysis with image documentation. Complete exam focused on the bila teral lower extremity veins. COMPARISON: ABDOMEN/PELVIS GI BLEED CTA 12/16/2021 6:43 PM FINDINGS: Right deep veins: Unremarkable. The comm on femoral, femoral, proximal profunda femoral veins are patent without thrombus. Miguel l Doppler waveforms. Normal compressibility and/or augmentation response. Right superficial veins: Saphenofemoral junction is patent without thrombus. Left deep veins: Unremarkable. The common femora l, femoral, proximal profunda femoral and popliteal veins are patent without t hrombus. Normal Doppler waveforms. Normal compressibility and/or augment ation response. Left superficial veins: Saphenofemoral junction is patent without thrombus. 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 IMPRESSION: No evidence of deep vein thrombosis. Nazia Sanford MD On 12/17/2021 05:39:24; [id number] 2021-12-16 18:43:05-00:00 Radiation Dose CTDIVOL = 0 (mGy): DLP = 3313 (mGy-cm) [facility] PROCEDURE INFORMATION: Exam: CTA Abdomen and Pelvis With Contrast, GI B leeding Exam date and time: 12/16/2021 6:43 PM Age: 76 years old Clinical indication: /eval for diverticular blee ding/ diverticulitis TECHNIQUE: Imaging protocol: Computed tomographic angiograp hy of the abdomen and pelvis with contrast. 3D rendering (Not supervised by radiologist): ND P and/or 3D reconstructed images were created by the technologist. Radiation optimization: All CT scans at this facility use at least one of these dose optimization techniques: automated exposure control; mA and/or kV adjustment per patient size (includes targeted e xams where dose is matched to clinical indication); or iterative reconstructio n. Contrast material: OMNI 350; Contrast volume: 85 ml; Contrast route: INTRAVENOUS (IV); COMPARISON: No relevant prior studies available. RADIATION DOSE METRICS: Total DLP (mGy-cm): 3313 FINDINGS: Lungs: Clear left lung base. Pleural space: Small right pleural effusion asso ciated with mild pleural thickening suggesting inflammation or em pyema. Mild adjacent pulmonary opacity is most consistent with subsegmental atelectasis . Heart: Heart size at the upper limits of normal associated with mild to moderate coronary calcifications. Aorta: Normal caliber mildly to moderately ather osclerotic abdominal aorta without aneurysm or dissection. Celiac trunk and mesenteric arteries: Mi ld mixed atherosclerotic plaque at the celiac trunk origin causing mild narrowing. The remaining portions are mildly atherosclerotic, but well opacified. Mild calcif ied plaques in the SMA origin and proximal extent causing areas of mild narrowing. The remaining portions are well opacified. Renal arteries: Surgically absent right main marina al artery. Tohm-de-dwpqxfic atherosclerosis in narrowing in the left main re nal artery. Right iliac arteries: Jinp-ew-ljudxzmh atheroscl erosis throughout the right common iliac artery, right external iliac artery , and right internal iliac artery causing mild multifocal narrowing. Left iliac arteries: Gbdw-il-ahnczdpp atheroscle rosis throughout the left common iliac artery, left ex ternal iliac artery, and left internal iliac artery causing mild multifocal narrowing. Veins: Mild mixing artifact suspected in the mil dly prominent right common femoral vein. Liver: No mass. Gallbladder and bile ducts: Unremarkable. No raman cified stones. No ductal dilation. Pancreas: Unremarkable. No mass. No ductal dilat ion. Spleen: Normal size spleen with heterogeneous pe rfusion. Adrenal glands: Small low-attenuation left adren al gland nodule measuring 1.1 cm most consistent with an adenoma. Normal right adrenal gland. Kidneys and ureters: Postoperative change of rig ht nephrectomy. Moderate to severe left renal cortical atrophy and scarring without urolithiasis or focal lesion. Minimal left hydroureteronephrosis with mild thickening of the left renal pelvis that may represent mild pyelitis or pyelonephritis. Clinical correlation is required. Stomach and bowel: Nonobstructive bowel gas deja maria elena associated with mild colonic diverticulosis and colonic fluid suggesting diarrheal state. Mild wall thickening and induration is seen involv ing a diverticulum and a short segment of the left side of the transverse colon consist ent with mild acute diverticulitis. Precontrast images demonstrate subtle areas of hyperattenuation within diverticula in the sigmoid colon suggesting residual food/medication or possibly small amounts of residual intraluminal hemorrhage. Postoperative change in the under distended mildly thick-rajesh d rectosigmoid colon. Subtle curvilinear areas of enhancement seen in the distal rectum and anus suggesting small vessels vessels, hemorrhoids, or minimal e xtravasation. Appendix: No evidence of appendicitis. Intraperitoneal space: Unremarkable. No free air . No significant fluid collection. Lymph nodes: Scattered small central mesenteric and retroperitoneal lymph nodes. Small pericardial lymph nodes. Urinary bladder: Unremarkable. No mass. Reproductive: Mildly enlarged prostate and semin al vesicles should be correlated clinically. 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 No acute fracture or dislocation. Soft tissues: Minimal bilateral gynecomastia. IMPRESSION: 1. Nonobstructive bowel gas pattern associated with mild colonic diverticulosis and colonic fluid suggesting diarrheal state. Mi ld wall thickening and induration is seen involving a diverticulum and a short segment of the left side of the transverse colon consistent with mil d acute diverticulitis. Precontrast images demonstrate subtle areas of h yperattenuation within diverticula in the sigmoid colon suggesting resi dual food/medication or possibly small amounts of residual intraluminal hemorrhage. 2. Postoperative change in t he under distended mildly thick-walled rectosigmoid colon. Subtle curvilinear areas of enhancement s een in the distal rectum and anus suggesting small vessels vessels, hemorrhoi ds, or minimal extravasation. A follow-up radionuclide GI bleeding study may b e helpful. 3. Mild mixing artifact suspected in the mildly prominent right common femoral vein. Follow-up Doppler eval uation may be helpful to better exclude occult DVT. 4. Mildly enlarged prostate and seminal vesicles should be correlated clinically. 5. Postoperative change of right nephrectomy. 6. Moderate to severe left renal cortical atroph y and scarring without urolithiasis or focal lesion. Minimal left hydro ureteronephrosis with mild thickening of the left renal pelvis that may rep resent mild pyelitis or pyelonephritis. Clinical correlation is required . 7. Small low-attenuation left adrenal gland nodu le measuring 1.1 cm most consistent with an adenoma. 8. No acute fracture or dislocation. 9. Small right pleural effusion associated with mild pleural thickening suggesting inflammation or empyema. Mild adjacen t pulmonary opacity is most consistent with subsegmental atelectasis. 10. Heart size at the upper limits of normal ass ociated with mild to moderate coronary calcifications. THIS REPORT CONTAINS FINDINGS THAT MAY BE CRITIC AL TO PATIENT CARE. The findings were verbally communicated via telephon e conference with Dr. Pratik Cabrera at 8:06 PM CDT on 12/16/2021. The findin gs were acknowledged and understood. Anoop Mays MD On 12/16/2021 20:07:19; [id number] 2021-12-16 18:43:05-00:00 Radiation Dose CTDIVOL = 0 (mGy): DLP = 3313 (mGy-cm) [facility] PROCEDURE INFORMATION: Exam: CTA Abdomen and Pelvis With Contrast, GI B leeding Exam date and time: 12/16/2021 6:43 PM Age: 76 years old Clinical indication: /eval for diverticular blee ding/ diverticulitis TECHNIQUE: Imaging protocol: Computed tomographic angiograp hy of the abdomen and pelvis with contrast. 3D rendering (Not supervised by radiologist): ND P and/or 3D reconstructed images were created by the technologist. Radiation optimization: All CT scans at this facility use at least one of these dose optimization techniques: automated exposure control; mA and/or kV adjustment per patient size (includes targeted e xams where dose is matched to clinical indication); or iterative reconstructio n. Contrast material: OMNI 350; Contrast volume: 85 ml; Contrast route: INTRAVENOUS (IV); COMPARISON: No relevant prior studies available. RADIATION DOSE METRICS: Total DLP (mGy-cm): 3313 FINDINGS: Lungs: Clear left lung base. Pleural space: Small right pleural effusion asso ciated with mild pleural thickening suggesting inflammation or em pyema. Mild adjacent pulmonary opacity is most consistent with subsegmental atelectasis . Heart: Heart size at the upper limits of normal associated with mild to moderate coronary calcifications. Aorta: Normal caliber mildly to moderately ather osclerotic abdominal aorta without aneurysm or dissection. Celiac trunk and mesenteric arteries: Mi ld mixed atherosclerotic plaque at the celiac trunk origin causing mild narrowing. The remaining portions are mildly atherosclerotic, but well opacified. Mild calcif ied plaques in the SMA origin and proximal extent causing areas of mild narrowing. The remaining portions are well opacified. Renal arteries: Surgically absent right main marina al artery. Wjgh-pg-dterubdp atherosclerosis in narrowing in the left main re nal artery. Right iliac arteries: Aymh-dt-hqsdaeoq atheroscl erosis throughout the right common iliac artery, right external iliac artery , and right internal iliac artery causing mild multifocal narrowing. Left iliac arteries: Mjjm-qi-ydgqdwou atheroscle rosis throughout the left common iliac artery, left ex ternal iliac artery, and left internal iliac artery causing mild multifocal narrowing. Veins: Mild mixing artifact suspected in the mil dly prominent right common femoral vein. Liver: No mass. Gallbladder and bile ducts: Unremarkable. No raman cified stones. No ductal dilation. Pancreas: Unremarkable. No mass. No ductal dilat ion. Spleen: Normal size spleen with heterogeneous pe rfusion. Adrenal glands: Small low-attenuation left adren al gland nodule measuring 1.1 cm most consistent with an adenoma. Normal right adrenal gland. Kidneys and ureters: Postoperative change of rig ht nephrectomy. Moderate to severe left renal cortical atrophy and scarring without urolithiasis or focal lesion. Minimal left hydroureteronephrosis with mild thickening of the left renal pelvis that may represent mild pyelitis or pyelonephritis. Clinical correlation is required. Stomach and bowel: Nonobstructive bowel gas deja maria elena associated with mild colonic diverticulosis and colonic fluid suggesting diarrheal state. Mild wall thickening and induration is seen involv ing a diverticulum and a short segment of the left side of the transverse colon consist ent with mild acute diverticulitis. Precontrast images demonstrate subtle areas of hyperattenuation within diverticula in the sigmoid colon suggesting residual food/medication or possibly small amounts of residual intraluminal hemorrhage. Postoperative change in the under distended mildly thick-rajesh d rectosigmoid colon. Subtle curvilinear areas of enhancement seen in the distal rectum and anus suggesting small vessels vessels, hemorrhoids, or minimal e xtravasation. Appendix: No evidence of appendicitis. Intraperitoneal space: Unremarkable. No free air . No significant fluid collection. Lymph nodes: Scattered small central mesenteric and retroperitoneal lymph nodes. Small pericardial lymph nodes. Urinary bladder: Unremarkable. No mass. Reproductive: Mildly enlarged prostate and semin al vesicles should be correlated clinically. Bones/joints: Moderate lumbar spondylosi s and facet joint arthrosis associated with multilevel disc bulges causing nfhb-nv-ixmmtbnh spinal canal narrowing and neural foraminal narrowing g reatest at L3-L4. No acute fracture or dislocation. Soft tissues: Minimal bilateral gynecomastia. IMPRESSION: 1. Nonobstructive bowel gas pattern associated with mild colonic diverticulosis and colonic fluid suggesting diarrheal state. Mi ld wall thickening and induration is seen involving a diverticulum and a short segment of the left side of the transverse colon consistent with mil d acute diverticulitis. Precontrast images demonstrate subtle areas of h yperattenuation within diverticula in the sigmoid colon suggesting resi dual food/medication or possibly small amounts of residual intraluminal hemorrhage. 2. Postoperative change in t he under distended mildly thick-walled rectosigmoid colon. Subtle curvilinear areas of enhancement s een in the distal rectum and anus suggesting small vessels vessels, hemorrhoi ds, or minimal extravasation. A follow-up radionuclide GI bleeding study may b e helpful. 3. Mild mixing artifact suspected in the mildly prominent right common femoral vein. Follow-up Doppler eval uation may be helpful to better exclude occult DVT. 4. Mildly enlarged prostate and seminal vesicles should be correlated clinically. 5. Postoperative change of right nephrectomy. 6. Moderate to severe left renal cortical atroph y and scarring without urolithiasis or focal lesion. Minimal left hydro ureteronephrosis with mild thickening of the left renal pelvis that may rep resent mild pyelitis or pyelonephritis. Clinical correlation is required . 7. Small low-attenuation left adrenal gland nodu le measuring 1.1 cm most consistent with an adenoma. 8. No acute fracture or dislocation. 9. Small right pleural effusion associated with mild pleural thickening suggesting inflammation or empyema. Mild adjacen t pulmonary opacity is most consistent with subsegmental atelectasis. 10. Heart size at the upper limits of normal ass ociated with mild to moderate coronary calcifications. THIS REPORT CONTAINS FINDINGS THAT MAY BE CRITIC AL TO PATIENT CARE. The findings were verbally communicated via telephon e conference with Dr. Pratik Cabrera at 8:06 PM CDT on 12/16/2021. The findin gs were acknowledged and understood. Anoop Mays MD On 12/16/2021 20:07:19; EDDIE [id number] 2021-12-16 18:43:05-00:00 Radiation Dose CTDIVOL = 0 (mGy): DLP = 3313 (mGy-cm) [facility] PROCEDURE INFORMATION: Exam: CTA Abdomen and Pelvis With Contrast, GI B leeding Exam date and time: 12/16/2021 6:43 PM Age: 76 years old Clinical indication: /eval for diverticular blee ding/ diverticulitis TECHNIQUE: Imaging protocol: Computed tomographic angiograp hy of the abdomen and pelvis with contrast. 3D rendering (Not supervised by radiologist): ND P and/or 3D reconstructed images were created by the technologist. Radiation optimization: All CT scans at this facility use at least one of these dose optimization techniques: automated exposure control; mA and/or kV adjustment per patient size (includes targeted e xams where dose is matched to clinical indication); or iterative reconstructio n. Contrast material: OMNI 350; Contrast volume: 85 ml; Contrast route: INTRAVENOUS (IV); COMPARISON: No relevant prior studies available. RADIATION DOSE METRICS: Total DLP (mGy-cm): 3313 FINDINGS: Lungs: Clear left lung base. Pleural space: Small right pleural effusion asso ciated with mild pleural thickening suggesting inflammation or em pyema. Mild adjacent pulmonary opacity is most consistent with subsegmental atelectasis . Heart: Heart size at the upper limits of normal associated with mild to moderate coronary calcifications. Aorta: Normal caliber mildly to moderately ather osclerotic abdominal aorta without aneurysm or dissection. Celiac trunk and mesenteric arteries: Mi ld mixed atherosclerotic plaque at the celiac trunk origin causing mild narrowing. The remaining portions are mildly atherosclerotic, but well opacified. Mild calcif ied plaques in the SMA origin and proximal extent causing areas of mild narrowing. The remaining portions are well opacified. Renal arteries: Surgically absent right main marina al artery. Rmxb-pm-ydtclrtv atherosclerosis in narrowing in the left main re nal artery. Right iliac arteries: Zqss-au-dorqdeqw atheroscl erosis throughout the right common iliac artery, right external iliac artery , and right internal iliac artery causing mild multifocal narrowing. Left iliac arteries: Pdzk-fw-gwucyiva atheroscle rosis throughout the left common iliac artery, left ex ternal iliac artery, and left internal iliac artery causing mild multifocal narrowing. Veins: Mild mixing artifact suspected in the mil dly prominent right common femoral vein. Liver: No mass. Gallbladder and bile ducts: Unremarkable. No raman cified stones. No ductal dilation. Pancreas: Unremarkable. No mass. No ductal dilat ion. Spleen: Normal size spleen with heterogeneous pe rfusion. Adrenal glands: Small low-attenuation left adren al gland nodule measuring 1.1 cm most consistent with an adenoma. Normal right adrenal gland. Kidneys and ureters: Postoperative change of rig ht nephrectomy. Moderate to severe left renal cortical atrophy and scarring without urolithiasis or focal lesion. Minimal left hydroureteronephrosis with mild thickening of the left renal pelvis that may represent mild pyelitis or pyelonephritis. Clinical correlation is required. Stomach and bowel: Nonobstructive bowel gas deja maria elena associated with mild colonic diverticulosis and colonic fluid suggesting diarrheal state. Mild wall thickening and induration is seen involv ing a diverticulum and a short segment of the left side of the transverse colon consist ent with mild acute diverticulitis. Precontrast images demonstrate subtle areas of hyperattenuation within diverticula in the sigmoid colon suggesting residual food/medication or possibly small amounts of residual intraluminal hemorrhage. Postoperative change in the under distended mildly thick-rajesh d rectosigmoid colon. Subtle curvilinear areas of enhancement seen in the distal rectum and anus suggesting small vessels vessels, hemorrhoids, or minimal e xtravasation. Appendix: No evidence of appendicitis. Intraperitoneal space: Unremarkable. No free air . No significant fluid collection. Lymph nodes: Scattered small central mesenteric and retroperitoneal lymph nodes. Small pericardial lymph nodes. Urinary bladder: Unremarkable. No mass. Reproductive: Mildly enlarged prostate and semin al vesicles should be correlated clinically. Bones/joints: Moderate lumbar spondylosi s and facet joint arthrosis associated with multilevel disc bulges causing goka-am-vigyukxw spinal canal narrowing and neural foraminal narrowing g reatest at L3-L4. No acute fracture or dislocation. Soft tissues: Minimal bilateral gynecomastia. IMPRESSION: 1. Nonobstructive bowel gas pattern associated with mild colonic diverticulosis and colonic fluid suggesting diarrheal state. Mi ld wall thickening and induration is seen involving a diverticulum and a short segment of the left side of the transverse colon consistent with mil d acute diverticulitis. Precontrast images demonstrate subtle areas of h yperattenuation within diverticula in the sigmoid colon suggesting resi dual food/medication or possibly small amounts of residual intraluminal hemorrhage. 2. Postoperative change in t he under distended mildly thick-walled rectosigmoid colon. Subtle curvilinear areas of enhancement s een in the distal rectum and anus suggesting small vessels vessels, hemorrhoi ds, or minimal extravasation. A follow-up radionuclide GI bleeding study may b e helpful. 3. Mild mixing artifact suspected in the mildly prominent right common femoral vein. Follow-up Doppler eval uation may be helpful to better exclude occult DVT. 4. Mildly enlarged prostate and seminal vesicles should be correlated clinically. 5. Postoperative change of right nephrectomy. 6. Moderate to severe left renal cortical atroph y and scarring without urolithiasis or focal lesion. Minimal left hydro ureteronephrosis with mild thickening of the left renal pelvis that may rep resent mild pyelitis or pyelonephritis. Clinical correlation is required . 7. Small low-attenuation left adrenal gland nodu le measuring 1.1 cm most consistent with an adenoma. 8. No acute fracture or dislocation. 9. Small right pleural effusion associated with mild pleural thickening suggesting inflammation or empyema. Mild adjacen t pulmonary opacity is most consistent with subsegmental atelectasis. 10. Heart size at the upper limits of normal ass ociated with mild to moderate coronary calcifications. THIS REPORT CONTAINS FINDINGS THAT MAY BE CRITIC AL TO PATIENT CARE. The findings were verbally communicated via telephon e conference with Dr. Pratik Cabrera at 8:06 PM CDT on 12/16/2021. The findin gs were acknowledged and understood. Anoop Mays MD On 12/16/2021 20:07:19; EDDIE [id number] 2020-06-02 11:10:00-00:00 [facility]ACL [facility] ([facility]) Discharge Summary REPORT#:[id number] REPORT STATUS: Signed DATE:06/02/20 TIME: 1110 PATIENT: DARIEN GROSSMAN UNIT #: [id number] ROOM/BED: [place] [address] : 45 AGE: 74 SEX: M ATTEND: Rosa Curtis MD ADM AUTHOR: Danny Keith MD * ALL edits or amendments must be made on the C-Note/computer document * PCP PCP PCP: PCP: No Primary or Family Physician General Information Date of admission: Observation Start Date: Date of admission: 05/19/20 Discharge date: 05/31/20 Admission diagnosis: 1.Mechanical fall 2.Traumatic brain injury with subdural hematoma 3. Right AKA pulmonary 2020 4. IMpaired mobility/Impaired gait 5. History of depression 6. Generalized weakness 7. Phantom pain 8. End-stage renal disease on hemodialysis 3 day s a week 9. Anemia 10. History of coronary artery disease, hyperten willy, and hyperlipidemia Discharge diagnosis: Mechanical fall TBI with SDH, no surgical intervention required Stable acute L parafalcine SDH extending into th e L tentorium with min left to right midline shift 04/03-Recent right AKA, previous right TKA compli cated by infection Impaired mobility and gait Generalized weakness Frequent falls 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 ESRD on hemodialysis Hyperkalemia resolved History of CAD Hypertension HLD Anemia of chronic disease Right AKA wound dehiscence Left lateral thigh pain Left thigh pain, lateral femoral cutaneous neura lgia Significant impairment in self-care and function al mobility 05/24-Technically successful ultrasound-guided as piration of a right knee stump collection. 15 mL of blood-ti nged fluid. Cultures negative Right AKA residual limb cellulitis-resolved Major depression recurrent, mild to moderate wit hout psychotic features-improved Unspecified anxiety disorder. Improved in self-care and functional ability Hospital course: 74-year-old male with past medical history of co ronary artery disease status post PCI, end-stage renal disease, hyperlipidemi a, recent right AKA who was admitted to inpatient rehab improved to [facility] after a fall in rehab facility on March 15, 2020 and it was discover ed that patient had subdural hematoma. Patient has some m cristino loss. Patient has been having difficulty with balance since his AKA consequently is admitted t o inpatient rehab for comprehensive rehabilitation . We were asked to do medical management. Patient's vital signs are stable Abnormal labs leukocytosis and anemia patient wi th renal failure on hemodialysis. CT of the right femur without contrast: [id number] amputation changes with complex soft tissue fluid collection at the stump site. There is loss of fatty medullary density at the stump site. Osteomyelit is is not excluded. The patient underwent ultrasound-guided aspirati on of superficial fluid collection Complaining of right stump pain, neuropathy and phantom limb pain as per pain management Right AKA stump cellulitis, w wound dehiscence 05/24/20 sp aspiration culture by IR of loculated fluid c ollection The patient was on continuous telemetry, antibio tics, wound care, PT/OT, BP control, glycemic control, pain control, electro lyte control, DVT/GI prophylaxis. The patient was hemodynamically sta ble and was discharged home, follow-up with PCP. Discharge medications as per reconciliation list. Consultants: burn/wound, internal medicine, neph rology, pain management, psychiatry, vascular surgery Pt. condition on discharge: improved, stable COVID-19: Discharge Plan CDC criteria met for testing: yes Test performed: yes, result negative Pt. disposition at DC: home w/home health Med Rec Med Rec Discharge meds: Stop taking the following medications: busPIRone (BUSPAR) 10 MG TAB 10 MILLIGRAM ORAL BEDTIME. HYDROcodone/APAP (NORCO 10/325) 10 MG-325 MG TAB 1 TABLET ORAL EVERY 6 HOURS NEEDED. as neede d for PAIN DESVENLAFAXINE ER (PRISTIQ) 50 MG TAB.SR.24H 25 MILLIGRAM ORAL DAILY. levETIRAcetam (KEPPRA) 500 MG TAB 500 MILLIGRAM ORAL EVERY 12 HOURS. Qty = 10 Continue taking these medications: ZOLPIDEM (AMBIEN) 10 MG TAB 10 MILLIGRAM ORAL BEDTIME. as needed for INSOMN IA METOPROLOL TARTRATE (LOPRESSOR) 25 MG TAB 25 MILLIGRAM ORAL TWICE DAILY. Qty = 60 This prescription has been renewed GABAPENTIN (NEURONTIN) 300 MG CAP 300 MILLIGRAM ORAL BEDTIME. Qty = 30 This prescription has been renewed FUROSEMIDE (LASIX) 40 MG TAB 40 MILLIGRAM ORAL DAILY. Qty = 30 This prescription has been renewed traZODone (DESYREL) 150 MG TAB 150 MILLIGRAM ORAL BEDTIME. Qty = 30 This prescription has been renewed Start taking the following new medications: CLOPIDOGREL (PLAVIX) 75 MG TAB 75 MILLIGRAM ORAL DAILY. Qty = 30 No Refills AMITRIPTYLINE (ELAVIL) 10 MG TAB 10 MILLIGRAM ORAL BEDTIME. Qty = 30 No Refills ASPIRIN EC (ECOTRIN) 81 MG TAB.EC 81 MILLIGRAM ORAL DAILY. Qty = 30 No Refills SENNA (SENOKOT) 8.6 MG TAB 1 TABLET ORAL DAILY. Qty = 30 No Refills POLYETHYLENE GLYCOL 3350 (MIRALAX) 255 GM POWDER 17 GRAM ORAL DAILY. Qty = 30 No Refills COLLAGENASE (SANTYL OINT) 250 UNIT/GRAM OINTMENT 1 APPLIC TOPICAL DAILY. Qty = 30 No Refills Instructions: APPLY ENOUGH OINTMENT FOR WOUND COVERAGE. R AKA WOUND DEHISCENCE SERTRALINE (ZOLOFT) 50 MG TAB 50 MILLIGRAM ORAL BEDTIME. Qty = 30 No Refills VENLAFAXINE XR (EFFEXOR XR) 75 MG CAP.SR.24H 150 MILLIGRAM ORAL DAILY. Qty = 30 No Refills Objective VS/I O Last Documented: Result Date Time Pulse Ox 96 05/31 07 B/P 133/65 05/31 0703 B/P Mean 87.9 05/31 0703 O2 Delivery Room air 05/31 07 Temp 37.0 05/31 07 Pulse 57 05/31 0703 Resp 18 05/31 0703 PATIENT WEIGHT: Weight (lb): 171 Weight (oz): 12.16 Weight (kg): 77.909 Physical Exam General appearance: alert, awake Neck: no JVD Cardiovascular: regular rate rhythm Respiratory: aerating well, clear to auscultatio n Abdomen: non-tender, normal bowel sounds, soft Extremities: Extremities: RT AKA Neuro/CUSTODIAN MANAGER: alert, oriented x 3 Skin: dry, normal temperature, AKA stump celluli tis, w wound dehiscence- Psychiatry: depressed, normal judgement/insight Discharge Instructions PCP )( Follow up labs, proc, tx: PER RENAL )( Discharge to: Home Health wPlan of Care Discharge Instructions Additional Discharge Routines: PCP Follo w-Up, Occupational Therapy Director Follow-Up, Equipment/ Supplies, Wound/Dressing Care, Weight Monitoring , F/U Labs/Procedures, Add. instructions )( Diet: Renal )( Weight monitoring: Weekly )( Activity: As Tolerated, Appropriate for Age, No Driving, NWB R AKA )( Wound/dressing care: Change dressing daily, Keep wound clean and dry, R AKA PER DR GILBERT )( Equipment/supplies: Wheelchair )( Notify PCP of these S/S: WORSENING OF SYMPTOMS )( Additional instructions: FALL SAFETY PRECAUTIONS NWB R AKA Agency referral: [facility] Prescriptions: e-prescribe Discharge management: face to face encounter Follow-up Appointments PCP follow up: PCP: No Primary or Family Physician PCP follow up timeframe: In 6 days Special instructions: FOLLOW UP W PCP FOR HOSPITALIZATION Attending Physician: Attending Physician: Sekou Curtis MD Special instructions: NOW FOLLOW UP NEEDED Consulting provider 1: Provider 1: Merissa Dillon MD Specialty: Nephrology Consult follow up timeframe: In 3 days Special instructions: RENAL Consulting provider 2: Provider 2: Shaila Gilbert Specialty: Family Medicine Follow up timeframe: In 2-3 weeks Special instructions: WOUND CARE Consulting provider 3: Provider 3: Herman Lofton MD Specialty: Pain Medicine Follow up timeframe: In 3-4 weeks Special instructions: PAIN Consulting provider 4: Provider 4: Taco Hernandez MD Specialty: Vascular Surgery Follow up timeframe: In 1-2 weeks Special instructions: VASC SURGEON Consulting provider 5: Provider 5: Elio Lane MD Specialty: Psychiatry Follow up timeframe: In 1-2 weeks Special instructions: PSYCH Add'l Consults Appointments Consulting provider 6: Provider 6: Abraham Baldwin MD Specialty: Neurological Surgery Consult phone: [phone] Consult follow up timeframe: In 3-4 weeks Consult special instructions: NEUROSURG Electronically Signed by Danny Keith MD n 07/15/20 at 101[address] [facility] #:[id number] END OF REPORT 2020-05-31 13:15:00-00:00 HCACL [facility] ([facility]) Wound Care Progress Note REPORT#:[id number] REPORT STATUS: Signed DATE:05/31/20 TIME: 1315 PATIENT: DARIEN GROSSMAN UNIT #: [id number] ROOM/BED: [place] [address] : 45 AGE: 74 SEX: M ATTEND: Rosa Curtis MD ADM AUTHOR: Shaila Gilbert * ALL edits or amendments must be made on the C-Note/computer document * Subjective Chief Complaint: FU R AKA wounds; c/o less pain at stump Objective General Medications: Active Meds + DC'd Last 24 Hrs Mupirocin 1 APPLIC BID TOPICAL (DCD) Hydrocodone Bitart/Acetaminophen 1 TAB Q4H PRN P RN PO (DCD) Sertraline HCl 25 MG BEDTIME PO (DCD) Albumin Human 12.5 GM ASDIR PRN IV (DCD) Lidocaine HCl 0.5 ML ASDIR PRN I-DERMAL (DCD) Mannitol 12.5 GM ASDIR PRN IV (DCD) Sodium Chloride 2,000 ML ASDIR PRN IV (DCD) Sodium Chloride 10 ML ASDIR PRN IV (DCD) Sodium Chloride 250 ML ASDIR PRN IV (DCD) Collagenase 1 APPLIC DAILY TOPICAL (DCD) Lidocaine 1 PATCH DAILY TOPICAL (DCD) Amitriptyline HCl 10 MG BEDTIME PO (DCD) Triamcinolone Acetonide 40 MG PROCEDURE IM (DCD) Aspirin 81 MG DAILY PO (DCD) Clopidogrel Bisulfate 75 MG DAILY PO (DCD) Furosemide 40 MG DAILY PO (DCD) Polyethylene Glycol 17 GM DAILY PO (DCD) Senna 1 TAB DAILY PO (DCD) Venlafaxine HCl 75 MG DAILY PO (DCD) Acetaminophen 650 MG Q6H PRN PRN PO (DCD) Hydralazine HCl 10 MG Q6H PRN PRN PO (DCD) Ondansetron HCl 4 MG TID PRN PRN SL (DCD) Heparin Sodium 5,000 UNIT Q8H SUBQ (DCD) Epoetin Donny-epbx 4,000 UNIT TuThSa@2100 SUBQ (D CD) Gabapentin 300 MG BEDTIME PO (DCD) Metoprolol Tartrate 25 MG BID PO (DCD) Trazodone HCl 150 MG BEDTIME PO (DCD) Zolpidem Tartrate 5 MG BEDTIME PRN PRN PO (DCD) Nutrition assessment: The data set between the solid lines has been im ported from the dietitian's assessment. Any exceptions have been noted under Provider comments. BMI Calculated: 25.4 Nutrition related diagnosis: Nutrition diagnosis details: Nutrition problem: Increased nutrient needs Nutrition etiology: Chronic disease Nutrition signs and symptoms: ESRD ON HD Nutrition prescription: 1. C ontinue renal diet 2. D/C Nepro 1x/day 3. Encourage food ordering and monitor fo od intake 3. [place] food preferences within diet and encourage oral intake >75% 4. ADD LIQUACEL DAILY Dietitian name: Breann Olivera DIETITIPOPEYE Assessment completed: 05/26/20 Provider comments on imported dietitian assessme nt: Physical Exam General appearance: awake Skin: R AKA wound dehiscence on both medial late ral ends of stump ( abt 0.5x0.5x0.2 cm) w/ less slough; few superficial dehiscence areas at entire incision site. Palpable suture ( removed by provider, per px) No more erythema @ medial aspect. Results Findings/Data: Recent Impressions: RADIOLOGY - XR CHEST 1 V 05/31 1406 Report Impression - Status: SIGNED Entered: 05/31/2020 1412 IMPRESSION: Mild cardiomegaly. No acute pulmonary findings. Impression By: Sriram Zamudio Diagnosis, Assessment Plan Free Text A P: Right AKA stump cellulitis, w wound dehiscence- ( sp aspiration culture by IR of loculated fluid collection ) ; Superficial cx : Pseudomonas (R-Merrem), and CoN. Aspirate Cx neg. IV Zosyn per ID. Bactroban with xeroform to dehisced site s , cover with foam dressing daily. JESS Molina. JESS ortega HH; FU in 2 wks. [ x] Optimize Nutrition and Glycemic Control [ x] Pressure relieving inte rventions (Low Air Mattress, Prevalon boot, Turn q2h ) [ x] Nursing to implement impaired skin integrit y care plan as per skin care protocol Coordinattion of care D/W [ ] Other MD's [ x ] P atient [ ] Family [ x] Nursing [ ] Case Management at 2106 RPT #:[id number] END OF REPORT 2020-05-31 12:41:00-00:00 [facility]ACL [facility] Discharge Summary REPORT#:[id number] REPORT STATUS: Signed DATE:05/31/20 TIME: 1241 PATIENT: DARIEN GROSSMAN UNIT #: [id number] ROOM/BED: [place] [address] : 45 AGE: 74 SEX: M ATTEND: Rosa Curtis MD ADM AUTHOR: Sekou Curtis MD * ALL edits or amendments must be made on the C-Note/computer document * Med Rec Med Rec Discharge meds: Stop taking the following medications: busPIRone (BUSPAR) 10 MG TAB 10 MILLIGRAM ORAL BEDTIME. HYDROcodone/APAP (NORCO 10/325) 10 MG-325 MG TAB 1 TABLET ORAL EVERY 6 HOURS NEEDED. as neede d for PAIN DESVENLAFAXINE ER (PRISTIQ) 50 MG TAB.SR.24H 25 MILLIGRAM ORAL DAILY. levETIRAcetam (KEPPRA) 500 MG TAB 500 MILLIGRAM ORAL EVERY 12 HOURS. Qty = 10 Continue taking these medications: ZOLPIDEM (AMBIEN) 10 MG TAB 10 MILLIGRAM ORAL BEDTIME. as needed for INSOMN IA METOPROLOL TARTRATE (LOPRESSOR) 25 MG TAB 25 MILLIGRAM ORAL TWICE DAILY. Qty = 60 This prescription has been renewed GABAPENTIN (NEURONTIN) 300 MG CAP 300 MILLIGRAM ORAL BEDTIME. Qty = 30 This prescription has been renewed FUROSEMIDE (LASIX) 40 MG TAB 40 MILLIGRAM ORAL DAILY. Qty = 30 This prescription has been renewed traZODone (DESYREL) 150 MG TAB 150 MILLIGRAM ORAL BEDTIME. Qty = 30 This prescription has been renewed Start taking the following new medications: CLOPIDOGREL (PLAVIX) 75 MG TAB 75 MILLIGRAM ORAL DAILY. Qty = 30 No Refills AMITRIPTYLINE (ELAVIL) 10 MG TAB 10 MILLIGRAM ORAL BEDTIME. Qty = 30 No Refills ASPIRIN EC (ECOTRIN) 81 MG TAB.EC 81 MILLIGRAM ORAL DAILY. Qty = 30 No Refills SENNA (SENOKOT) 8.6 MG TAB 1 TABLET ORAL DAILY. Qty = 30 No Refills POLYETHYLENE GLYCOL 3350 (MIRALAX) 255 GM POWDER 17 GRAM ORAL DAILY. Qty = 30 No Refills COLLAGENASE (SANTYL OINT) 250 UNIT/GRAM OINTMENT 1 APPLIC TOPICAL DAILY. Qty = 30 No Refills Instructions: APPLY ENOUGH OINTMENT FOR WOUND COVERAGE. R AKA WOUND DEHISCENCE SERTRALINE (ZOLOFT) 50 MG TAB 50 MILLIGRAM ORAL BEDTIME. Qty = 30 No Refills VENLAFAXINE XR (EFFEXOR XR) 75 MG CAP.SR.24H 150 MILLIGRAM ORAL DAILY. Qty = 30 No Refills Objective Physical Exam VS: Last Documented: Result Date Time Pulse Ox 96 05/31 702 B/P 133/65 05/31 07 B/P Mean 87.9 05/31 702 O2 Delivery Room air 05/31 702 Temp 98.6 05/31 702 Pulse 57 05/31 07 Resp 18 05/31 702 PATIENT WEIGHT: Weight (lb): 171 Weight (oz): 12.16 Weight (kg): 77.909 General appearance: alert, awake, no acute distr ess, pleasant, no respiratory distress Psych: alert, normal affect, oriented x 3 HEENT: anicteric, mucosal membranes moist, pupil s reactive to light, sclera clear, NC/AT Neck: non-tender, supple, no JVD Cardiovascular: regular rate rhythm, S1/S2, no m urmur Respiratory: aerating well, clear bilaterally, c lear to auscultation Abdomen: bowel sounds presen t, non-distended, soft, non-tender, no mass palpable Skin: dry, normal temperature, L AKA incision w 2 open areas of dehiscence-no drainage, no odor-MUCH IMPROVED Musculoskeletal - general: Musculoskeletal - general: normal tone, no swel ling, MMT moves all against gravity. BUE 4/5, SHORT PIECE HANDLER GOOD, RHF 4+/5, LLE 4-/5 . L calf NT, No cords. NO TENDERNESS L lateral thigh above trochanter burs ae. Neuro/CUSTODIAN MANAGER: alert, oriented X 3, CNII-XII intact, normal speech, reflexes equal bilat Functional Progress Functional progress: - - ST SPECIFIC EVAL AND DAILY NOTE - - ST Daily Note: Yes ST Therapy Time Provided: Yes - - ST THERAPY TIME PROVIDED - - ST individual evaluation/treatment: Yes ST individual total time (minutes): 45 ST TOTAL eval/treatment time: 45 - - ST INDIVIDUAL THERAPY TIME - - ST individual therapy time in: 1000 ST individual therapy time out: 1045 - - ST DAILY NOTE - - Cognition: PT PRESENTS W/MILD DEFICITS IN MEMOR Y, ATTENTION, EF, AND HIGH LEVEL PS. -PT USED STM STRATEGIES TODAY TO COMPLETE TASKS FOR WORKING VISUAL MEMORY AND ATTENTION, ROCKY MUNOZ, LEVEL 2 -72 % MOD CUES -TASKS FOR ALTERNATING ATTENTION: ALTERNATING W ORD ORDER-86% MOD CUES. ST daily note comment: PT VERY VERBOSE, CUES FO R REDIRECTION. DISCUSSED IMPLEMENTATION OF MEMORY AND ATTENTION STRATEGI ES INTO DAILY TASKS OF COUNSELING BUSINESS AND COLUMN WRITING . D /C TODAY. Special rehabilitation precautions: Safety/fall Seizure NWB right residual limb Patient had a fall or an intercepted fall this shift: No - - ST INTERDISCIPLINARY COLLABORATION - - Anticipated discharge equipment: None Barriers to discharge: Fallrisk1 Caregiver ENDURANCE Strategies for D/C barriers: Fall recovery training THER EX BALANCE EX ADL TRAINING ST team conference update: PT IS READY FOR D/C TODAY Focus area of collaboration this shift: Cogniti ve techniques Results and continued need for team collaborati on: CONT POC Treating therapist: Melodie Zimmerman Credentials: MA, IT COMPLIANCE ANALYST-[facility] Interdisciplinary team collaboration this shift : Rehab Nursing - - PT SPECIFIC EVAL AND DAILY NOTE - - PT Daily Note: Yes PT Therapy Time Provided: Yes - - PT THERAPY TIME PROVIDED - - PT individual evaluation/treatment: Yes PT individual total time (minutes): 90 PT TOTAL eval/treatment time: 90 - - PT INDIVIDUAL THERAPY TIME - - PT individual therapy time in: 0900 PT individual therapy time out: 1030 - - PT DAILY NOTE - - PT daily note comment: S: PATIENT AGREEABLE FOR THERAPY. O: PATIENT PERFORMED ROLLING WITH IND, SUPINE T O SIT WITH IND, SIT TO STAND WITH IND, STAND PIVOT TRANSFE R WITH IND, GAIT TRAINING FOR 10 FT WITH IND, 10 FT UNEVEN SURFACE WITH IND, 50 FT WITH 2 TURNS WITH IND, 150 FT WITH IND. Pt. PERFORMED 1 STEP WITH RW AND SBA DUE TO SOME UNSTEADINESS, 3 TRIALS PERFORMED. Pt. PERFORMED WC MOBILITY FOR 200 FT WITH IND. A: PATIENT PERFORMED TREATMENT WELL. Pt. STILL BECOMES UNSTEADY WHEN MONIQUE UP 1 STEP. HOWEVER PATIENT STATES HE WILL HAVE RAMPS TO GET IN THE HOUSE. P: CONTINUE PLAN OF CARE. Special rehabilitation precautions: Safety/fall Seizure NWB right residual limb Patient had a fall or an intercepted fall this shift: No Anticipated discharge equipment: None Barriers to discharge: Fallrisk1 Caregiver ENDURANCE Strategies for D/C barriers: Fall recovery rani ollie THER EX BALANCE EX ADL TRAINING PT team conference update: PROGRESS: GOOD. PIMENTEL IERS: SLIGHT UNSTEADINESS. DME: NONE. D/C: HHPT. PRIMARY MODE OF AMBULATI ON: WC 300 FT - - PT INTERDISCIPLINARY COLLABORATION - - Interdisciplinary team collaboration this shift : Rehab Nursing Physical Therapy Focus area of collaboration this shift: Transfe r techniques Results and continued need for team collaborati on: SAFE TREATMENT. Treating therapist: Pj Roa Credentials: NATALIIA Supervising therapist: Shaila Arboleda Credentials: PT - - OT INTERIM CARE - - Eating: Yes Oral hygiene: Yes Shower/ bathing: Yes Dressing upper body: Yes Dressing lower body: Yes Footwear: Yes - - OT INTERIM EATING - - Patient eats by mouth: Yes Eats by mouth independently: Yes Interim eating CARE score: Independent (6) - - OT INTERIM ORAL HYGIENE - - Patient performed oral hygiene: Yes Performed oral hygiene independently: Yes Interim oral hygiene CARE score: Independent (6 ) - - OT INTERIM SHOWER/BATHING - - Patient bathed or showered: Yes Bathed or showered self independently: Yes Interim bathing CARE score: Independent (6) - - OT INTERIM DRESSING UPPER BODY - - Patient dressed/undressed upper body: Yes Dressed/undressed upper body independently: Yes Interim upper body dressing CARE score: Indepen dent (6) - - OT INTERIM DRESSING LOWER BODY - - Patient dressed/undressed lower body: Yes Dressed/undressed lower body independently: Yes Interim lower body dressing CARE score: Indepen dent (6) - - OT INTERIM FOOTWEAR - - Patient put on/removed footwear: Yes Put on/removed footwear independently: Yes Interim footwear CARE score: Independent (6) General Information General Information Free Text A P: Patient is a 74 year old male with a [facility] medical history of CAD with stents, end-stage renal disease, hyperlipidemia, recent right AKA, previous right TKA complicated by infection, previously modified in dependent with ADLs and was using a RW and WC for mobility. Patient lives in a single story home alone. On 03/15/2020 patient presented to [facility] ED from outside rehab facility s/p fall three days ago w ith CT head revealing SDH.Patient states he has "intermittent memory loss" and does not remember the events surrounding the fall but does sta te he has fallen four times related to ambulation. CT head with acute left parafalcine SDH and NSGY was consulted.No surgery was needed.Patient with recent right AKA 04/03 and has been having frequent falls since the AKA.Patient also with E SRD/HD and chronic anemia and nephrology as been following closely and continuation of HD 3x/week.His labs are being followed closely in addition to hi s HTN. Patient is below his functional baseline and is a good shirin date for inpatient acute rehab. Patient requires an intensive therapy program and is willing and abl e to tolerate a minimum of 3 hours of therapy per day. Patient will require P T and OT to address his needs related to the weakness from falls,SDH and recen t right AKA. The patient also requires 24 hour rehab nursing to manage and edu missy patient regarding medications,continuation of HD,stump care and fall prevention. The patient will continue to work on strength, bed mobility, walker sfers, gait so her can return home as independent as possible.His goal is to c omplete a comprehensive rehab program and not fall anymore. Patient elza okeefe. He is alert and oriented x3 and following commands. Patient denie s any nausea, vomiting, fever, chills, chest pain, shortness of nabeel ath, diarrhea, constipation. RN notes to small open areas of the right AKA incision. He also complai ns of some left lateral thigh pain, worse at night that is sharp and achy. Rel ieved with pain medication. Preadmission screen was reviewed. Patient admitt ed to IRF. 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 15 mL of blood-tinged fluid. 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 Improved in self-care and functional ability Hospital course: -Comprehensive inpatient rehabilitation with physical, occupational and speech therapy 3 hours a day for 5 to 6 days per week-2 05/18 rehabilitation physician supervision-03/09 rehabilitat ion nursing care-Case management for safe discharge planning-Rehab MD to monitor comorbidities and f unctional progress. -Decubitus prevention-protective hydrating lotio n-turn every 2 hours-offload -Right AKA wound dehiscence- wound care consulted-Dr. Gilbert-for now Xeroform and Mepilex -Consult new life brace management/prosthetics -Strict fall and safety precaution -DVT prophylaxis-SCDs and subcutaneous heparin -GI prophylaxis-Protonix -Early mobilization-OOB to chair -Work on bed mobility, transfer training , ADLs, pre-gait and gait exercises as tolerable. 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 intake, c heck albumin 3.2, 3.1 and prealbumin 13.1, 14.3, 27 dietary consult, prote in supplements. -Await consultants input, internal medicine, nep hrology, pain management, ID, wound care -Keppra for a total of 7 days-to be completed to zuniga 05/21-completed -Continue right AKA incisional dressing care-wou nds looking better -Prosthetic company consulted for evaluation -Continue aspirin and Plavix-Lasix -History of depression/anxie ty continue BuSpar, Desyrel, Effexor-office asst bring in patient's home Pristiq -Monitor hemoglobin on Epogen -Hemodialysis as per nephrology-Saturday -Blood pressure currently stable on current medi cation -Renal diet -Left hip pain-x-ray of the left hip and pelvis showed no acute osseous fracture. The hip joint spaces are preserved-sat itor -Elevated WBC-possible infec amado right NASEEM-culture wound pending-no fever-repeat CBC 05/21-given patient's history of staph infect ion prior will consult ID. Patient seen by ID-patient placed on vancomycin now discontinued -Right AKA stump cellulitis, w wound deh iscence- ( sp aspiration culture by IR of loculated fluid collection ) ; Superficial cx : Pseudomonas (R-Merrem), and CoN. Aspirate Cx neg. On IV Zosyn per ID-as per wound care -Santyl with xeroform to dehisced sites, cover w ith foam dressing daily. May start WVAC to sites once less than 20% slough. -Right AKA stump cellulitis-R/O fluid collection , check CT extremity without contrast-Superficial cx: Pseudomonas (R-Merrem), and CoNS-ESR 114/CRP 192 significant elevated-On Cefepime, change to Zosy n as per ID -05/23-CT of RLE-CT(+) 6/6/4cm loculated fluid co llection Infectious disease believes this is more of a seroma. I discussed w ith ID Dr. Sierra and he agrees with vascular surgery consul tation. I would like to treat this conservatively as possible since patient on rehab. Continue Zosyn as per ID-HAS MIDLINE -05/24 ID ordered special procedures IR aspiratio n of fluid -Depression worse-patient's office manag er to bring in patient's home Prestiq- psychiatry consult-started o n Zoloft-monitor closely-patient upset and depressed and became more depressed after he learned about the results of the CT. -Depression improved-patient being treated for m ajor depression recurrent and started on Zoloft-wean venlafaxine over time. Di scontinue buspirone. Continue trazodone and Ambien for insomnia-as per psychia try 05/24-Technically successful ultrasound-g uided aspiration of a right knee stump collection. 15 mL of blood-tinged fluid. Culture s pending-cont abx x 1 week total if aspirte cx negative as per ID -Right AKA stump cellulitis- R/O fluid collection, check CT extremity-Superficial cx: Pseudomonas (R-Merrem), and CoNS-ESR/CRP sig nificant elevated -CT (+) [id number] loculated fluid maria fernanda ection; S/P diagnostic aspiration by IR 05/24, GS (-) , CX (-)-on Zosyn to complete 7 days-com pleted 05/30-as per ID-completed Zosyn- off antibiotic -Patient seen by vascular surgery Dr. Bowling-no s urgical intervention at this time wait for cultures-negative and continue ant ibiotics. -Left residual limb wounds are almost completely healed -Nutritional indices improved -Hemoglobin better-hemoglobin 9.2. On Epogen 3 t imes weekly -Renal following kidney function -Continue current medications -Continue brain injury and amputation IRF. Atilio carrillo progress -Patient met medical and rehabilitation goals fo r this admission -hemodynamically stable for discharge -Consult vascular surgeon to get established and can f/u as outpatient for PD catheter placement if he's a candidate-as per -Discussed with patient at discharge home health , discharge medications, discharge plans, discharge follow-up appointment s, discharge follow-up with vascular surgery for possible PD cath in the fut ure. -Patient very happy with his progress and care h ere at [facility] rehab Patient Progress-GAIT- IN SBA AMBULATED 200FT 75 FT USING RW WC FOLLOW USING HOP TO GAIT, VC TO EDUCATE Pt NOT TO SWING PAST WALKER FRONT BAR FOR SAFETY REASONS Pt ACKNOWLEDGED UNDERSTANDING. PM R Please see team note. Plan and goals discussed with the patient. I agree with the teams finding ELOS- [05/31] DC-Home with family-HH DME-HAS WC, TT 38 min>50% with discussing with patient about discharge plans as above, progress, open wounds to right AKA improving, co mpleted IV antibiotic, rehab plan of care, goals, therapies, progress, needs, and medical issues, examination. MAR and EMR reviewed. All Questions answered. Consultants: burn/wound, internal medicine, neph rology, pain management, psychiatry, vascular surgery Pt. condition on discharge: improved, stable Allergies: Allergies: shellfish derived (Coded, Severe, SWELLING, 04/03) Iodine and Iodide Containing Produc (Coded, Mild , DIARRHEA, 05/13/20) PINICILLIN (Uncoded, Mild, ITCHING, 05/13/20) COVID-19: Discharge Plan CDC criteria met for testing: yes Test performed: yes, result negative Pt. disposition at DC: home w/home health Treatments Procedures Treatments Procedures Lab: Recent Impressions: ULTRASOUND - USG NDL PLACEMENT (Bxg/Asp) 05/24 1 434 Report Impression - Status: SIGNED Entered: 05/24/2020 1515 IMPRESSION: 1. Technically successful ultrasound-guided aspi ration of a right knee stump collection. Impression By: [email or web address] - Paloma Arvizu D.O. Laboratory Tests 05/29 05/29 05/30 05/30 0500 2305 0415 0415 Chemistry Sodium (134 - 147 mEq/L) 137 141 Potassium (3.4 - 5.0 mEq/L) 3.9 3.9 Chloride (100 - 108 mEq/L) 99 104 Carbon Dioxide (21 - 33 mEq/l) 28 27 Anion Gap (0 - 20) 13 14 BUN (7 - 18 mg/dL) 11 45 Creatinine (0.6 - 1.3 mg/dL) 4.5 4.6 Glomerular Filtr Rate (70 - 80) 12.9 12.6 Glucose (70 - 110 mg/dL) 77 86 POC Glucose (70 - 110 MG/DL) 95 Calcium (8.0 - 10.5 mg/dL) 8.8 8.5 Albumin (3.4 - 5.0 g/dL) Cancelled 3.10 Prealbumin (16.0 - 40.0 mg/dL) Cancelled 27.0 Laboratory Tests: 05/25 0546 Chemistry Sodium (134 - 147 mEq/L) 136 Potassium (3.4 - 5.0 mEq/L) 3.8 Chloride (100 - 108 mEq/L) 101 Carbon Dioxide (21 - 33 mEq/l) 24 Anion Gap (0 - 20) 15 BUN (7 - 18 mg/dL) 33 H Creatinine (0.6 - 1.3 mg/dL) 4.2 H Glomerular Filtr Rate (70 - 80) 13.9 L Glucose (70 - 110 mg/dL) 79 Calcium (8.0 - 10.5 mg/dL) 8.9 Hematology WBC (4.5 - 11.0 x10 3/uL) 8.4 RBC (4.00 - 5.60 x10 6/uL) 3.22 L Hgb (12.5 - 16.9 g/dL) 9.2 L Hct (37.5 - 50.7 %) 31.3 L MCV (81.0 - 99.0 fL) 97.2 MCH (27.0 - 33.0 pg) 28.6 MCHC (33.0 - 37.0 g/dL) 29.4 L RDW (11.5 - 14.5 %) 14.5 Plt Count (150 - 400 x10 3/uL) 356 MPV (7.0 - 9.0 fL) 8.6 Neut % (Auto) (56.0 - 77.0 %) 61.1 Lymph % (Auto) (14.0 - 32.0 %) 18.0 Dolores % (Auto) (4.8 - 9.0 %) 10.5 H Eos % (Auto) (0.3 - 3.7 %) 8.8 H Baso % (Auto) (0.0 - 2.0 %) 0.8 Neut # (Auto) (2.0 - 7.6 x10 3/uL) 5.13 Lymph # (Auto) (1.0 - 3.8 x10 3/uL) 1.51 Dolores # (Auto) (0.1 - 0.8 x10 3/uL) 0.88 H Eos # (Auto) (0.0 - 0.2 x10 3/uL) 0.74 H Baso # (Auto) (0.0 - 0.2 x10 3/uL) 0.07 Abs Immat Gran (auto) (0.00 - 0.03 x10 3/uL) 0 .07 H Add Manual Diff NO Immature Gran % (0.0 - 2.0 %) 0.8 Nucleated RBC % (0 - 0 %) 0.0 Nucleated RBCs # (Man) (0.0 - 0.1 x10 3/uL) 0.0 0 RADIOLOGY - XR HIP W/PEL UNI 2+V LT 05/21 1735 Report Impression - Status: SIGNED Entered: 05/21/2020 1838 IMPRESSION: 1. There is no acute osseous fracture or disloca tion. The hip joint spaces are preserved. Impression By: [email or web address] - James Kitchen D.O. CAT SCAN - CT LOWER EXTRM W/O C RT 05/23 1728 Report Impression - Status: SIGNED Entered: 05/23/2020 1806 IMPRESSION: Above the knee amputation changes wi th complex soft tissue fluid collection at the stump site. There is los s of fatty medullary density at the stump site. Osteomyelitis is not excluded. Correlate with MRI as clinically indicated. SL: SG-H Impression By: [email or web address] - Dominic Mena M.D. ULTRASOUND - USG NDL PLACEMENT (Bxg/Asp) 05/24 1 434 Report Impression - Status: SIGNED Entered: 05/24/2020 1515 IMPRESSION: 1. Technically successful ultrasound-guided aspi ration of a right knee stump collection. Impression By: [email or web address] - Paloma Arvizu D.O. Discharge Instructions Discharge Instructions Discharge to: Home Health wPlan of Care Additional Discharge Routines: PCP Follo w-Up, Occupational Therapy Director Follow-Up, Equipment/ Supplies, Wound/Dressing Care, Weight Monitoring , F/U Labs/Procedures, Add. instructions Diet: Renal Weight Monitoring: Weekly Activity: As Tolerated, Appropriate for Age, No Driving, NWB R AKA Wound/dressing care: Change dressing len ly, Keep wound clean and dry, R AKA PER DR GILBERT Equipment/supplies: Wheelchair Notify PCP of signs/symptoms: WORSENING OF SYMPTOMS Follow up labs, proc, tx: PER RENAL Additional instructions: FALL SAFETY PRECAUTIONS NWB R AKA Agency referral: [facility] Prescriptions: e-prescribe Rx drug database reviewed: yes (BY PAIN MGMT) Discharge management: face to face encounter Time spent: Time spent with patient (minutes): 38 >50% spent on counseling/coordination of care: yes Follow-up Appointments PCP: PCP: No Primary or Family Physician PCP follow up timeframe: In 6 days Special instructions: FU PCP OF CHOICE Consulting provider 1: Provider 1: Merissa Dillon MD Specialty: Nephrology Consult follow up timeframe: In 3 days Special instructions: RENAL Consulting provider 2: Provider 2: Shaila Gilbert Specialty: Family Medicine Follow up timeframe: In 2-3 weeks Special instructions: WOUND CARE Consulting provider 3: Provider 3: Herman Lofton MD Specialty: Pain Medicine Follow up timeframe: In 3-4 weeks Special instructions: PAIN Consulting provider 4: Provider 4: Taco Hernandez MD Specialty: Vascular Surgery Follow up timeframe: In 1-2 weeks Special instructions: VASC SURGEON Consulting provider 5: Provider 5: Elio Lane MD Specialty: Psychiatry Follow up timeframe: In 1-2 weeks Special instructions: PSYCH Add'l Consults Appointments Consulting provider 6: Provider 6: Abraham Baldwin MD Specialty: Neurological Surgery Consult follow up timeframe: In 3-4 weeks Consult special instructions: NEUROSURG at [address] [facility] #:[id number] END OF REPORT 2020-05-31 09:43:00-00:00 [facility] Pain Management Progress Note REPORT#:[id number] REPORT STATUS: Signed DATE:05/31/20 TIME: 942 PATIENT: DARIEN GROSSMAN UNIT #: [id number] ROOM/BED: [facility]8-1 : 45 AGE: 74 SEX: M ATTEND: Rosa Curtis MD ADM AUTHOR: Dusty Smiley MONOGRAM MAKER * ALL edits or amendments must be made on the C-Note/computer document * Subjective Chief complaint: Patient seen and examined. Chart and VIJAYA reyes Patient being seen for Left thigh pain, lateral femoral cutaneous neuralgia, Right AKA pain, Peripheral neuropathy, phantom l imb pain right lower extremity, and constipation. Patient is going home today. I reviewed weaning methods for the pain medications. No other changes. Patient states symptoms are manageable with use of current medications. No fever/chills, chest pain, dyspnea, no emesis, pruritus, or hallucinations. 14-point ROS undertaken unremarkable except as n oted. Objective General VS/I O: Vital Signs Date Temp Pulse Resp B/P B/P Mean Pulse Ox FiO2 05/30-05/31 97.2-99.1 53-67 16-18 133-149/60-84 87-105.2 96-98 Last Documented: Result Date Time Pulse Ox 96 05/31 0703 B/P 133/65 05/31 0703 B/P Mean 87.9 05/31 0703 O2 Delivery Room air 05/31 0703 Temp 98.6 05/31 0703 Pulse 57 05/31 0703 Resp 18 05/31 0703 24 hour I O ending at 0700: 05/31 0700 05/30 1900 Intake Total 590 600 Output Total Balance 590 600 Intake, Oral 590 600 Intake, Oral 0 0 Supplement Number 1 Bowel Movements PATIENT WEIGHT: Weight (lb): 171 Weight (oz): 12.16 Weight (kg): 77.909 Medications: Active Meds + DC'd Last 24 Hrs Mupirocin 1 APPLIC BID TOPICAL Hydrocodone Bitart/Acetaminophen 1 TAB Q4H PRN P RN PO Sertraline HCl 25 MG BEDTIME PO Albumin Human 12.5 GM ASDIR PRN IV Lidocaine HCl 0.5 ML ASDIR PRN I-DERMAL (CKD) Mannitol 12.5 GM ASDIR PRN IV Sodium Chloride 2,000 ML ASDIR PRN IV Sodium Chloride 10 ML ASDIR PRN IV Sodium Chloride 250 ML ASDIR PRN IV Collagenase 1 APPLIC DAILY TOPICAL Lidocaine 1 PATCH DAILY TOPICAL Amitriptyline HCl 10 MG BEDTIME PO Triamcinolone Acetonide 40 MG PROCEDURE IM (CKD) Aspirin 81 MG DAILY PO Clopidogrel Bisulfate 75 MG DAILY PO Furosemide 40 MG DAILY PO Polyethylene Glycol 17 GM DAILY PO Senna 1 TAB DAILY PO (CKD) Venlafaxine HCl 75 MG DAILY PO Acetaminophen 650 MG Q6H PRN PRN PO Hydralazine HCl 10 MG Q6H PRN PRN PO Ondansetron HCl 4 MG TID PRN PRN SL Heparin Sodium 5,000 UNIT Q8H SUBQ Epoetin Donny-epbx 4,000 UNIT TuThSa@2100 SUBQ Gabapentin 300 MG BEDTIME PO Metoprolol Tartrate 25 MG BID PO Trazodone HCl 150 MG BEDTIME PO Zolpidem Tartrate 5 MG BEDTIME PRN PRN PO Physical Exam General appearance: alert, awake, oriented, no a cute distress Head/eyes: atraumatic, normocephalic, normal con junctiva/sclera ENT: normal pharynx, moist mucosal membranes Neck: full range of motion, non-tender, supple/n o meningismus Cardiovascular: regular rate rhythm Respiratory: clear to auscultation, no distress, aerating well Abdomen quadrants LLQ normal bowel sounds, LUQ normal roberto l sounds, RLQ normal bowel sounds, RUQ normal bowel sounds Extremities: moves all, no edema, pedal pulses, right AKA Neuro/CUSTODIAN MANAGER: no motor deficits, no sensory deficit s, CNII-XII grossly intact Skin: dry, intact, no rash Lymphatics: no lymphadenopathy Results Findings/data: NO new labs or radiology. Diagnosis, Assessment Plan Free text A P: A/P: Patient is a 74 year old male presenting with: Left thigh pain, lateral femoral cutaneous neura lgia -We offered to perform a left lateral femoral cu taneous nerve block to see if this helps with the pain. Patient declined -05/24-decrease Otis 10/325 to Otis 7.5/325 james ry 4 as needed -Lidoderm patch to left thigh daily -Otis 7.5/325 mg oral every 4 hours as needed f or pain -manageable Right AKA discomfort -05/23/2020-CT lower extremity - Above th e knee amputation changes with complex soft tissue fluid collection at the stum p site. There is loss of fatty medullary density at the stump site. Osteomyelitis is not excluded. C orrelate with MRI as clinically indicated. -IV antibiotics , appreciate infectious disease input -Pain medications as outlined above Peripheral neuropathy, phantom limb pain right l ower extremity -Gabapentin 300 mg oral at bedtime -amitriptyline 10 mg oral at bedtime -stable Antalgic/impaired gait -PT/OT -Gait training, improve endurance and strength -Transfer training -PMR following Falls -Fall precautions End-stage renal disease on hemodialysis -Nephrology following Subdural hematoma -Monitor mental status with opioids and other se dative medications Depression -monitoring Constipation -Monitor closely while patient is using opioid n arcotics -MiraLAX 17 g p.o. daily -Senna 1 tab p.o. daily -Manageable Past medical history: Subdural hematoma, CAD, en d-stage renal disease on HD, hypertension, hyperlipidemia, septic art hritis of prosthesis of previous right TKA, depression Past surgical history: Right TKR, right AKA, cor onary stents Social history: Negative for alcohol, tobacco, i llicit drug use Family history: Not relevant Allergies: Penicillin, iodine Disposition: Discharge date 05/31. Otis 7.5/325mg q6h PRN 7 day supply sent to [facility] in [facility]. All pertinent diagnostics/labs from the last 24 hours and during the course of the admission were reviewed. Plan discussed with the patient and the nurse. A ll questions were answered. Patient will be monitored for deleteriou s side effects associated with opioids and sedative medications. Me dications will be adjusted further clinical course. Risks versus benefits of opioid medications were reviewed to include, but not limited to respiratory depression, accid ental overdose, altered mental status, sudden , constipation which could result in bowel obstruction, seizures, withdrawal, dependency/addiction, risk for falls . Goals: Daily pain control. Case discussed with Dr Lofton whom agrees. 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: Total Prescriptions 28 Total Private Pay 0 Total Prescribers 4 Total Pharmacies 1 05/06/2020 1 05/06/2020 HYDROCODONE-ACETAMIN 10- 325 MG 30.0 7 [facility] SPA [id number] [facility] ([id number]) 0 42.86 MME Comm Ins [place] 04/20/2020 1 12/24/2019 ZOLPIDEM TARTRATE 10 MG TABLET 30.0 30 PE LAT [id number] [facility] ([id number]) 4 Comm Ins [place] 03/21/2020 1 12/24/2019 ZOLPIDEM TARTRATE 10 MG TABLET 30.0 30 PE LAT [id number] [facility] ([id number]) 3 Comm Ins [place] 02/20/2020 1 12/24/2019 ZOLPIDEM TARTRATE 10 MG TABLET 30.0 30 PE LAT [id number] [facility] ([id number]) 2 Comm Ins [place] 01/21/2020 1 12/24/2019 ZOLPIDEM TARTRATE 10 MG TABLET 30.0 30 PE LAT [id number] [facility] ([id number]) 1 Comm Ins [place] 12/24/2019 1 12/24/2019 ZOLPIDEM TARTRATE 10 MG TABLET 30.0 30 PE LAT [id number] [facility] ([id number]) 0 Comm Ins [place] 11/25/2019 1 07/07/2019 ZOLPIDEM TARTRATE 10 MG TABLET 30.0 30 PE LAT [id number] [facility] ([id number]) 5 Comm Ins [place] [id number] ([id number]) [address] [place] [address] at 1329 RPT #:[id number] END OF REPORT 2020-05-31 09:43:00-00:00 [facility] Pain Management Progress Note REPORT#:[id number] REPORT STATUS: Signed DATE:05/31/20 TIME: 942 PATIENT: DARIEN GROSSMAN UNIT #: [id number] ROOM/BED: [place] [address] : 45 AGE: 74 SEX: M ATTEND: Rosa Curtis MD ADM AUTHOR: Dusty Smiley NP * ALL edits or amendments must be made on the el See[employer]acer[employer]/computer document * Subjective Chief complaint: Patient seen and examined. Chart and VIJAYA reyes Patient being seen for Left thigh pain, lateral femoral cutaneous neuralgia, Right AKA pain, Peripheral neuropathy, phantom l imb pain right lower extremity, and constipation. Patient is going home today. I reviewed weaning methods for the pain medications. No other changes. Patient states symptoms are manageable with use of current medications. No fever/chills, chest pain, dyspnea, no emesis, pruritus, or hallucinations. 14-point ROS undertaken unremarkable except as n oted. Objective General VS/I O: Vital Signs Date Temp Pulse Resp B/P B/P Mean Pulse Ox FiO2 05/30-05/31 97.2-99.1 53-67 16-18 133-149/60-84 87-105.2 96-98 Last Documented: Result Date Time Pulse Ox 96 05/31 0703 B/P 133/65 05/31 0703 B/P Mean 87.9 05/31 0703 O2 Delivery Room air 05/31 07 Temp 98.6 05/31 0703 Pulse 57 05/31 0703 Resp 18 05/31 0703 24 hour I O ending at 0700: 05/31 0700 05/30 1900 Intake Total 590 600 Output Total Balance 590 600 Intake, Oral 590 600 Intake, Oral 0 0 Supplement Number 1 Bowel Movements PATIENT WEIGHT: Weight (lb): 171 Weight (oz): 12.16 Weight (kg): 77.909 Medications: Active Meds + DC'd Last 24 Hrs Mupirocin 1 APPLIC BID TOPICAL Hydrocodone Bitart/Acetaminophen 1 TAB Q4H PRN P RN PO Sertraline HCl 25 MG BEDTIME PO Albumin Human 12.5 GM ASDIR PRN IV Lidocaine HCl 0.5 ML ASDIR PRN I-DERMAL (CKD) Mannitol 12.5 GM ASDIR PRN IV Sodium Chloride 2,000 ML ASDIR PRN IV Sodium Chloride 10 ML ASDIR PRN IV Sodium Chloride 250 ML ASDIR PRN IV Collagenase 1 APPLIC DAILY TOPICAL Lidocaine 1 PATCH DAILY TOPICAL Amitriptyline HCl 10 MG BEDTIME PO Triamcinolone Acetonide 40 MG PROCEDURE IM (CKD) Aspirin 81 MG DAILY PO Clopidogrel Bisulfate 75 MG DAILY PO Furosemide 40 MG DAILY PO Polyethylene Glycol 17 GM DAILY PO Senna 1 TAB DAILY PO (CKD) Venlafaxine HCl 75 MG DAILY PO Acetaminophen 650 MG Q6H PRN PRN PO Hydralazine HCl 10 MG Q6H PRN PRN PO Ondansetron HCl 4 MG TID PRN PRN SL Heparin Sodium 5,000 UNIT Q8H SUBQ Epoetin Donny-epbx 4,000 UNIT TuThSa@2100 SUBQ Gabapentin 300 MG BEDTIME PO Metoprolol Tartrate 25 MG BID PO Trazodone HCl 150 MG BEDTIME PO Zolpidem Tartrate 5 MG BEDTIME PRN PRN PO Physical Exam General appearance: alert, awake, oriented, no a cute distress Head/eyes: atraumatic, normocephalic, normal con junctiva/sclera ENT: normal pharynx, moist mucosal membranes Neck: full range of motion, non-tender, supple/n o meningismus Cardiovascular: regular rate rhythm Respiratory: clear to auscultation, no distress, aerating well Abdomen quadrants LLQ normal bowel sounds, LUQ normal roberto l sounds, RLQ normal bowel sounds, RUQ normal bowel sounds Extremities: moves all, no edema, pedal pulses, right AKA Neuro/CUSTODIAN MANAGER: no motor deficits, no sensory deficit s, CNII-XII grossly intact Skin: dry, intact, no rash Lymphatics: no lymphadenopathy Results Findings/data: NO new labs or radiology. Diagnosis, Assessment Plan Free text A P: A/P: Patient is a 74 year old male presenting with: Left thigh pain, lateral femoral cutaneous neura lgia -We offered to perform a left lateral femoral cu taneous nerve block to see if this helps with the pain. Patient declined -05/24-decrease Otis 10/325 to Otis 7.5/325 james ry 4 as needed -Lidoderm patch to left thigh daily -Otis 7.5/325 mg oral every 4 hours as needed f or pain -manageable Right AKA discomfort -05/23/2020-CT lower extremity - Above th e knee amputation changes with complex soft tissue fluid collection at the stum p site. There is loss of fatty medullary density at the stump site. Osteomyelitis is not excluded. C orrelate with MRI as clinically indicated. -IV antibiotics , appreciate infectious disease input -Pain medications as outlined above Peripheral neuropathy, phantom limb pain right l ower extremity -Gabapentin 300 mg oral at bedtime -amitriptyline 10 mg oral at bedtime -stable Antalgic/impaired gait -PT/OT -Gait training, improve endurance and strength -Transfer training -PMR following Falls -Fall precautions End-stage renal disease on hemodialysis -Nephrology following Subdural hematoma -Monitor mental status with opioids and other se dative medications Depression -monitoring Constipation -Monitor closely while patient is using opioid n arcotics -MiraLAX 17 g p.o. daily -Senna 1 tab p.o. daily -Manageable Past medical history: Subdural hematoma, CAD, en d-stage renal disease on HD, hypertension, hyperlipidemia, septic art hritis of prosthesis of previous right TKA, depression Past surgical history: Right TKR, right AKA, cor onary stents Social history: Negative for alcohol, tobacco, i llicit drug use Family history: Not relevant Allergies: Penicillin, iodine Disposition: Discharge date 05/31. Otis 7.5/325mg q6h PRN 7 day supply sent to [facility] in [facility]. All pertinent diagnostics/labs from the last 24 hours and during the course of the admission were reviewed. Plan discussed with the patient and the nurse. A ll questions were answered. Patient will be monitored for deleteriou s side effects associated with opioids and sedative medications. Me dications will be adjusted further clinical course. Risks versus benefits of opioid medications were reviewed to include, but not limited to respiratory depression, accid ental overdose, altered mental status, sudden , constipation which could result in bowel obstruction, seizures, withdrawal, dependency/addiction, risk for falls . Goals: Daily pain control. Case discussed with Dr Lofton whom agrees. 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: Total Prescriptions 28 Total Private Pay 0 Total Prescribers 4 Total Pharmacies 1 05/06/2020 1 05/06/2020 HYDROCODONE-ACETAMIN 10- 325 MG 30.0 7 [facility] SPA [id number] [facility] (1602) 0 42.86 MME Comm Ins [place] 04/20/2020 1 12/24/2019 ZOLPIDEM TARTRATE 10 MG TABLET 30.0 30 PE LAT [id number] [facility] (1602) 4 [employer] [place] 03/21/2020 1 12/24/2019 ZOLPIDEM TARTRATE 10 MG TABLET 30.0 30 PE LAT [id number] [facility] (1602) 3 [place] Ins [place] 02/20/2020 1 12/24/2019 ZOLPIDEM TARTRATE 10 MG TABLET 30.0 30 PE LAT [id number] [facility] (1602) 2 [place] 01/21/2020 1 12/24/2019 ZOLPIDEM TARTRATE 10 MG TABLET 30.0 30 PE LAT [id number] [facility] (1602) 1 [place] 12/24/2019 1 12/24/2019 ZOLPIDEM TARTRATE 10 MG TABLET 30.0 30 PE LAT [id number] [facility] (1602) 0 [place] 11/25/2019 1 07/07/2019 ZOLPIDEM TARTRATE 10 MG TABLET 30.0 30 PE LAT [id number] [facility] (1602) 5 Comm Ins [place] [id number] [phone] [place] [address] at 1329 Electronically Signed by Herman Lofton MD on 0 05/31/20 at 9041 RPT #:[id number] END OF REPORT 2020-05-31 09:18:00-00:00 [facility] ([facility]) Infectious Dis. Progress Note REPORT#:[id number] REPORT STATUS: Signed DATE:05/31/20 TIME: 917 PATIENT: DARIEN GROSSMAN UNIT #: [id number] ROOM/BED: [place] [address] : 45 AGE: 74 SEX: M ATTEND: Rosa Curtis MD ADM AUTHOR: Jonathan Sheikh NP * ALL edits or amendments must be made on the C-Note/computer document * Subjective Chief Complaint: F/U Right AKA cellulitis HPI: Patient is a 74-year-old male with past medical history of end-stage renal disease on HD, hypertension, hyperlipide liseth who underwent right jrkcc-gzb-cohy amputation in March 2020. He was admitted to [facility] after sustaining a fall resulting in a subdural hematoma. He was transferred to rehab on . He was noted to have small amount of gamal inage to his right AKA stump and hence ID was consulted to assist with antibi otics and plan of care. Patient reports: Yes: feeling better, pain controlled (right aka) . No: complaints, abdominal pain, back pain, bowel movem ent, burning with urination, cough, diarrhea, fever, headache, nausea, pain, shortness of breath, vom iting, wheezing. Nursing reports: No: complaints. Review of Systems All systems rev neg: except as marked Objective General VS/I O: Last Documented: Result Date Time Pulse Ox 96 05/31 0703 B/P 133/65 05/31 0703 B/P Mean 87.9 05/31 0703 O2 Delivery Room air 05/31 07 Temp 98.6 05/31 0703 Pulse 57 05/31 0703 Resp 18 05/31 0703 Vital Signs Date Temp Pulse Resp B/P B/P Mean Pulse Ox FiO2 05/30-05/31 97.2-99.1 53-67 16-18 133-149/60-84 87-105.2 96-98 24 hour I O ending at 0700: 05/31 0700 05/30 1900 Intake Total 590 600 Output Total Balance 590 600 Intake, Oral 590 600 Intake, Oral 0 0 Supplement Number 1 Bowel Movements PATIENT WEIGHT: Weight (lb): 171 Weight (oz): 12.16 Weight (kg): 77.909 Physical Exam General appearance: alert, awake, oriented, plea elina, conversational Wound/incision: Location: Right AKA healing nicely, no erythema or drainag e Head/Eyes: normocephalic ENT: moist mucosal membranes Neck: supple/no meningismus, no bruit/NL carotid s Cardiovascular: regular rate rhythm Respiratory: clear to auscultation, aerating wel l, no distress Abdomen: non-tender, normal bowel sounds Neuro/CUSTODIAN MANAGER: alert, oriented X 3 Skin: no rash Results Results: no new labs, vital signs stable, curren t med profile rev'd Diagnosis, Assessment Plan Free Text A P: 1. Right AKA stump cellulitis --R/O fluid collection, check CT extremity --Superficial cx: Pseudomonas (R-Merrem), and Co NS --ESR/CRP significant elevated --CT (+) [id number] loculated f luid collection; S/P diagnostic aspiration by IR , GS (-), CX (-); C/W hematoma --S/P 1 week of Zosyn 2. S/P Mechanical fall with SDH 3. ESRD on HD 4. HTN 5. HLD Off abx Local wound care Stable fro DC from ID standpoint F/U in office in 1-2 weeks; office to call for a ppt Plan discussed with: patient, nurse Electronically Signed by Jonathan Sheikh NP on at 1524 RPT #:[id number] END OF REPORT 2020-05-31 09:18:00-00:00 [facility]L [facility] ([facility]) Infectious Dis. Progress Note REPORT#:[id number] REPORT STATUS: Signed DATE:05/31/20 TIME: 917 PATIENT: DARIEN GROSSMAN UNIT #: [id number] ROOM/BED: [place] [address] : 45 AGE: 74 SEX: M ATTEND: Rosa Curtis MD ADM AUTHOR: Jonathan Sheikh NP * ALL edits or amendments must be made on the C-Note/computer document * Subjective Chief Complaint: F/U Right AKA cellulitis HPI: Patient is a 74-year-old male with past medical history of end-stage renal disease on HD, hypertension, hyperlipide liseth who underwent right atjwh-dym-souw amputation in March 2020. He was admitted to [facility] after sustaining a fall resulting in a subdural hematoma. He was transferred to rehab on . He was noted to have small amount of gamal inage to his right AKA stump and hence ID was consulted to assist with antibi otics and plan of care. Patient reports: Yes: feeling better, pain controlled (right aka) . No: complaints, abdominal pain, back pain, bowel movem ent, burning with urination, cough, diarrhea, fever, headache, nausea, pain, shortness of breath, vom iting, wheezing. Nursing reports: No: complaints. Review of Systems All systems rev neg: except as marked Objective General VS/I O: Last Documented: Result Date Time Pulse Ox 96 05/31 0703 B/P 133/65 05/31 0703 B/P Mean 87.9 05/31 07 O2 Delivery Room air 05/31 702 Temp 98.6 05/31 07 Pulse 57 05/31 0703 Resp 18 05/31 07 Vital Signs Date Temp Pulse Resp B/P B/P Mean Pulse Ox FiO2 05/30-05/31 97.2-99.1 53-67 16-18 133-149/60-84 87-105.2 96-98 24 hour I O ending at 0700: 05/31 0700 05/30 1900 Intake Total 590 600 Output Total Balance 590 600 Intake, Oral 590 600 Intake, Oral 0 0 Supplement Number 1 Bowel Movements PATIENT WEIGHT: Weight (lb): 171 Weight (oz): 12.16 Weight (kg): 77.909 Physical Exam General appearance: alert, awake, oriented, plea elina, conversational Wound/incision: Location: Right AKA healing nicely, no erythema or drainag e Head/Eyes: normocephalic ENT: moist mucosal membranes Neck: supple/no meningismus, no bruit/NL carotid s Cardiovascular: regular rate rhythm Respiratory: clear to auscultation, aerating wel l, no distress Abdomen: non-tender, normal bowel sounds Neuro/CUSTODIAN MANAGER: alert, oriented X 3 Skin: no rash Results Results: no new labs, vital signs stable, curren t med profile rev'd Diagnosis, Assessment Plan Free Text A P: 1. Right AKA stump cellulitis --R/O fluid collection, check CT extremity --Superficial cx: Pseudomonas (R-Merrem), and Co NS --ESR/CRP significant elevated --CT (+) [id number] loculated f luid collection; S/P diagnostic aspiration by IR , GS (-), CX (-); C/W hematoma --S/P 1 week of Zosyn 2. S/P Mechanical fall with SDH 3. ESRD on HD 4. HTN 5. HLD Off abx Local wound care Stable fro DC from ID standpoint F/U in office in 1-2 weeks; office to call for a ppt Plan discussed with: patient, nurse Electronically Signed by Jonathan Sheikh NP on at 1524 at 7389 RPT #:[id number] END OF REPORT 2020-05-30 13:50:00-00:00 [facility] ([facility]) Nephrology Progress Note REPORT#:[id number] REPORT STATUS: Signed DATE:05/30/20 TIME: 1350 PATIENT: DARIEN GROSSMAN UNIT #: [id number] ROOM/BED: [place] [address] : 45 AGE: 74 SEX: M ATTEND: Sekou Curtis MD ADM AUTHOR: Merissa Dillon MD * ALL edits or amendments must be made on the C-Note/computer document * Subjective Chief Complaint: Patient seen and examined. Reports feeling well. Keeps insisting for surgeon referral to get evaluated for PD catheter placem ent Objective General VS/I O: Vital Signs: Date Time Temp Pulse Resp B/P B/P Pulse O2 O2 F low FiO2 Mean Ox Delivery Rate 05/30 0405 97.7 68 18 155/68 97.4 95 05/29 1902 98.8 69 20 143/67 92.5 97 Room air 05/29 1642 98.2 61 12 138/60 86.1 97 24 hour I O ending at 0700: 05/30 0700 05/29 1900 Intake Total Output Total Balance Number 1 Bowel Movements Number Voids 1 PATIENT WEIGHT: Weight (lb): 171 Weight (oz): 12.16 Weight (kg): 77.909 Medications Active Meds + DC'd Last 24 Hrs Hydrocodone Bitart/Acetaminophen 1 TAB Q4H PRN P RN PO Sertraline HCl 25 MG BEDTIME PO Albumin Human 12.5 GM ASDIR PRN IV Lidocaine HCl 0.5 ML ASDIR PRN I-DERMAL (CKD) Mannitol 12.5 GM ASDIR PRN IV Sodium Chloride 2,000 ML ASDIR PRN IV Sodium Chloride 10 ML ASDIR PRN IV Sodium Chloride 250 ML ASDIR PRN IV Piperacillin Sod/Tazobactam Sod 3.375 GM Q12H IV (DC) Sodium Chloride 100 ML Collagenase 1 APPLIC DAILY TOPICAL Lidocaine 1 PATCH DAILY TOPICAL Amitriptyline HCl 10 MG BEDTIME PO Triamcinolone Acetonide 40 MG PROCEDURE IM (CKD) Aspirin 81 MG DAILY PO Clopidogrel Bisulfate 75 MG DAILY PO Furosemide 40 MG DAILY PO Polyethylene Glycol 17 GM DAILY PO Senna 1 TAB DAILY PO (CKD) Venlafaxine HCl 75 MG DAILY PO Acetaminophen 650 MG Q6H PRN PRN PO Hydralazine HCl 10 MG Q6H PRN PRN PO Ondansetron HCl 4 MG TID PRN PRN SL Heparin Sodium 5,000 UNIT Q8H SUBQ Epoetin Donny-epbx 4,000 UNIT TuThSa@2100 SUBQ Gabapentin 300 MG BEDTIME PO Metoprolol Tartrate 25 MG BID PO Trazodone HCl 150 MG BEDTIME PO Zolpidem Tartrate 5 MG BEDTIME PRN PRN PO Physical Exam General appearance: alert, awake Head/eyes: atraumatic, normocephalic Cardiovascular: regular rate and rhythm, pedal p ulses present Respiratory: clear to auscultation, normal breat h sounds Abdomen: normal bowel sounds, soft Extremities: no edema, Rt AKA Results Findings/Data: Laboratory Tests 05/30 05/29 0415 2305 Chemistry Sodium (134 - 147 mEq/L) 141 Potassium (3.4 - 5.0 mEq/L) 3.9 Chloride (100 - 108 mEq/L) 104 Carbon Dioxide (21 - 33 mEq/l) 27 Anion Gap (0 - 20) 14 BUN (7 - 18 mg/dL) 45 H Creatinine (0.6 - 1.3 mg/dL) 4.6 H Glomerular Filtr Rate (70 - 80) 12.6 L Glucose (70 - 110 mg/dL) 86 POC Glucose (70 - 110 MG/DL) 95 Calcium (8.0 - 10.5 mg/dL) 8.5 Albumin (3.4 - 5.0 g/dL) 3.10 L Prealbumin (16.0 - 40.0 mg/dL) 27.0 Diagnosis, Assessment Plan Hospital course to date: 1. ESRD 2. RT AKA stump infection 3. Hypertension 4. Status post fall and acute SDH 5. Anemia of chronic kidney disease 6. Coronary artery disease Plan -HD MWF. HD in am -Blood pressure currently stable -Renal diet -Hemoglobin better. On Epogen 3 times weekly -Phos has been stable. -Rehab f/u. Free Text A P: 1. ESRD 2. AVF infiltration 3. Hypertension 4. Status post fall and acute SDH 5. Anemia of chronic kidney disease 6. Coronary artery disease Plan -HD MWF. HD today -Blood pressure currently stable -Renal diet -Hemoglobin better. On Epogen 3 times weekly -Phos has been stable. will consult vascular surgeon to get est ablished and can f/u as outpatient for PD catheter placement if he's a candidate. at 1358 RPT #:[id number] END OF REPORT 2020-05-30 13:39:00-00:00 HCACL [facility] Internal Medicine Prog. Note REPORT#:[id number] REPORT STATUS: Signed DATE:05/30/20 TIME: 1339 PATIENT: DARIEN GROSSMAN UNIT #: [id number] ROOM/BED: [place] [address] : 45 AGE: 74 SEX: M ATTEND: Rosa Curtis MD ADM AUTHOR: Javier Meek NP * ALL edits or amendments must be made on the C-Note/computer document * Subjective Chief Complaint: Right AKA Possible depression Review of Systems Constitutional: Denies: chills, fever. ENT: Denies: earache, nasal congestion, sore throat. Respiratory: Denies: hemoptysis, parox no cturnal dyspnea, pleurisy, pleuritic pain, pneumonia , SOB, wheezing. Cardiovascular: Denies: chest pain, palpitations. GI: Denies: abdominal pain, nausea, vomiting. : Denies: flank pain, frequency, hematuria. Musculoskeletal: Denies: extremity pain, extr emity swelling, joint pain, lumbar pain, neck pain. Neuro: Denies: change in LOC, confusion, dizziness, foc al weakness, gait problem, headache, lightheaded, numbness, seizure, slurre d speech, spinning sensation, syncope, unable to speak, vision change. Psych: Denies: agitation, anxiety, auditory hallucinati on, change in mental status, confusion, delusional, depre ssion, homicidal ideation, hostile, insomnia, stress , suicidal ideation, visual hallucination. Objective General VS/I O: Vital Signs Date Temp Pulse Resp B/P B/P Mean Pulse Ox FiO2 05/29-05/30 36.5-37.1 61-69 12-20 138-155/60-68 86.1-97.4 95-97 Last Documented: Result Date Time Pulse Ox 95 05/30 0405 B/P 155/68 04/19 0405 B/P Mean 97.4 05/30 0405 Temp 36.5 05/30 0405 Pulse 68 05/30 0405 Resp 18 05/30 0405 O2 Delivery Room air 05/29 1901 24 hour I O ending at 0700: 05/30 0700 05/29 1899 Intake Total Output Total Balance Number 1 Bowel Movements Number Voids 1 PATIENT WEIGHT: Weight (lb): 171 Weight (oz): 12.16 Weight (kg): 77.909 Medications: Active Meds + DC'd Last 24 Hrs Hydrocodone Bitart/Acetaminophen 1 TAB Q4H PRN P RN PO Sertraline HCl 25 MG BEDTIME PO Albumin Human 12.5 GM ASDIR PRN IV Lidocaine HCl 0.5 ML ASDIR PRN I-DERMAL (CKD) Mannitol 12.5 GM ASDIR PRN IV Sodium Chloride 2,000 ML ASDIR PRN IV Sodium Chloride 10 ML ASDIR PRN IV Sodium Chloride 250 ML ASDIR PRN IV Piperacillin Sod/Tazobactam Sod 3.375 GM Q12H IV (DC) Sodium Chloride 100 ML Collagenase 1 APPLIC DAILY TOPICAL Lidocaine 1 PATCH DAILY TOPICAL Amitriptyline HCl 10 MG BEDTIME PO Triamcinolone Acetonide 40 MG PROCEDURE IM (CKD) Aspirin 81 MG DAILY PO Clopidogrel Bisulfate 75 MG DAILY PO Furosemide 40 MG DAILY PO Polyethylene Glycol 17 GM DAILY PO Senna 1 TAB DAILY PO (CKD) Venlafaxine HCl 75 MG DAILY PO Acetaminophen 650 MG Q6H PRN PRN PO Hydralazine HCl 10 MG Q6H PRN PRN PO Ondansetron HCl 4 MG TID PRN PRN SL Heparin Sodium 5,000 UNIT Q8H SUBQ Epoetin Donny-epbx 4,000 UNIT TuThSa@2100 SUBQ Gabapentin 300 MG BEDTIME PO Metoprolol Tartrate 25 MG BID PO Trazodone HCl 150 MG BEDTIME PO Zolpidem Tartrate 5 MG BEDTIME PRN PRN PO Physical Exam General appearance: alert, awake Neck: no JVD Cardiovascular: regular rate rhythm Respiratory: aerating well, clear to auscultatio n Abdomen: non-tender, normal bowel sounds, soft Extremities: Extremities: RT AKA Neuro/CUSTODIAN MANAGER: alert, oriented x 3 Skin: dry, normal temperature, AKA stump celluli tis, w wound dehiscence- Psychiatry: depressed, normal judgement/insight Results Findings/Data: Laboratory Tests 05/30/20 0415: [Embedded Image Not Available] Laboratory Tests 05/305 2305 Chemistry Sodium (134 - 147 mEq/L) 141 Potassium (3.4 - 5.0 mEq/L) 3.9 Chloride (100 - 108 mEq/L) 104 Carbon Dioxide (21 - 33 mEq/l) 27 Anion Gap (0 - 20) 14 BUN (7 - 18 mg/dL) 45 H Creatinine (0.6 - 1.3 mg/dL) 4.6 H Glomerular Filtr Rate (70 - 80) 12.6 L Glucose (70 - 110 mg/dL) 86 POC Glucose (70 - 110 MG/DL) 95 Calcium (8.0 - 10.5 mg/dL) 8.5 Albumin (3.4 - 5.0 g/dL) 3.10 L Prealbumin (16.0 - 40.0 mg/dL) 27.0 Diagnosis, Assessment Plan Free Text DxA P Notes Free text DxA P notes: Assessment: 1.Mechanical fall 2.Traumatic brain injury with subdural hematoma 3. Right AKA pulmonary 2020 4. IMpaired mobility/Impaired gait 5. History of depression 6. Generalized weakness 7. Phantom pain 8. End-stage renal disease on hemodialysis 3 day s a week 9. Anemia 10. History of coronary artery disease, hyperten willy, and hyperlipidemia 05/21/20 Patient's doing well Sitting in a wheelchair Participating in therapy Family visiting at the bedside 05/22/20 Patient participating in therapy daily Reportedly patient is depressed He answered all my questions but seems to be sad May 23, 2020 No leukocytosis, anemia Continue to monitor renal function CT of the right femur without contrast: Rowcb-yxd-rdru amputation changes with complex soft tissue fluid collection at the stump site. There is loss of fatty medullary density at the stump site. Osteomyelit is is not excluded. Correlate with MRI. Continue wound care May 24, 2020 The patient underwent ultrasound-guided aspirati on of superficial fluid collection May 25, 2020 Patient was started on Zoloft and venlafaxine Continue psychiatric medications Supportive psychotherapy for anxiety and depress ion Status post US guided aspiration of right AKA st ump yesterday. Continue hemodialysis and wound care Monitor H H Continue working with rehab May 26, 2020 Complaining of right stump pain, neuropathy and phantom limb pain as per pain management Working with rehab, better mood Hemodialysis yesterday May 27, 2020 Reports less pain, complains of generalized weak ness Cooperating with rehab There is some descent of the wound, seen by arcenio haque Continue antibiotics May 27, 2020 Reports less pain, complains of generalized weak ness Cooperating with rehab There is some descent of the wound, seen by arcenio haque Continue antibiotics Zosyn for right stump wound /cellulitis May 28, 2020: Right AKA stump cellulitis, w wound dehiscence 05/24/20 sp aspiration culture by IR of loculated fluid c ollection On IV Zosyn per ID. Wound care as per wound care team/Dr. Shruti Molina with xeroform to dehisced sites, cover w ith foam dressing daily. -Wound VAC is being planned by wound care 05/29/20 Aspiration done on 05/24/2020 shows no growth beto s far Right stump wound improving as per nursing Dressing was just changed today side not remove May 30, 2020 Discharge in a.m. as per rehab team Plan of care: -Continue with comprehensive inpatient rehabilit [facility] rehab team -Wound care as per Dr. Gilbert -Dialysis per nephrology team -Pain control -Fall precaution -DVT prophylaxis -GI prophylaxis -Pain control as pain management -Seizure precaution patient on Keppra -Continues present medications -Monitor labs -Consider discharge in a.m. -Plan of care discussed with the patient, galina palma's nurse, and Dr. Cavazos. Electronically Signed by Javier Meek MONOGRAM MAKER on 0 07/12/20 at 1851 RPT #:[id number] END OF REPORT 2020-05-30 13:39:00-00:00 [facility]ACL [facility] Internal Medicine Prog. Note REPORT#:[id number] REPORT STATUS: Signed DATE:05/30/20 TIME: 1339 PATIENT: DARIEN GROSSMAN UNIT #: [id number] ROOM/BED: [place] [address] : 45 AGE: 74 SEX: M ATTEND: Rosa Curtis MD ADM AUTHOR: Javier Meek MONOGRAM MAKER * ALL edits or amendments must be made on the C-Note/computer document * Javier Meek 05/30/20 1339: Subjective Chief Complaint: Right AKA Possible depression Review of Systems Constitutional: Denies: chills, fever. ENT: Denies: earache, nasal congestion, sore throat. Respiratory: Denies: hemoptysis, parox no cturnal dyspnea, pleurisy, pleuritic pain, pneumonia , SOB, wheezing. Cardiovascular: Denies: chest pain, palpitations. GI: Denies: abdominal pain, nausea, vomiting. : Denies: flank pain, frequency, hematuria. Musculoskeletal: Denies: extremity pain, extr emity swelling, joint pain, lumbar pain, neck pain. Neuro: Denies: change in LOC, confusion, dizziness, foc al weakness, gait problem, headache, lightheaded, numbness, seizure, slurre d speech, spinning sensation, syncope, unable to speak, vision change. Psych: Denies: agitation, anxiety, auditory hallucinati on, change in mental status, confusion, delusional, depre ssion, homicidal ideation, hostile, insomnia, stress , suicidal ideation, visual hallucination. Objective General VS/I O: Vital Signs Date Temp Pulse Resp B/P B/P Mean Pulse Ox FiO2 05/29-05/30 36.5-37.1 61-69 12-20 138-155/60-68 86.1-97.4 95-97 Last Documented: Result Date Time Pulse Ox 95 05/30 0405 B/P 155/68 05/30 0405 B/P Mean 97.4 05/30 0405 Temp 36.5 05/30 0405 Pulse 68 05/30 0405 Resp 18 05/30 0405 O2 Delivery Room air 05/29 1902 24 hour I O ending at 0700: 05/30 0700 05/29 1900 Intake Total Output Total Balance Number 1 Bowel Movements Number Voids 1 PATIENT WEIGHT: Weight (lb): 171 Weight (oz): 12.16 Weight (kg): 77.909 Medications: Active Meds + DC'd Last 24 Hrs Hydrocodone Bitart/Acetaminophen 1 TAB Q4H PRN P RN PO Sertraline HCl 25 MG BEDTIME PO Albumin Human 12.5 GM ASDIR PRN IV Lidocaine HCl 0.5 ML ASDIR PRN I-DERMAL (CKD) Mannitol 12.5 GM ASDIR PRN IV Sodium Chloride 2,000 ML ASDIR PRN IV Sodium Chloride 10 ML ASDIR PRN IV Sodium Chloride 250 ML ASDIR PRN IV Piperacillin Sod/Tazobactam Sod 3.375 GM Q12H IV (DC) Sodium Chloride 100 ML Collagenase 1 APPLIC DAILY TOPICAL Lidocaine 1 PATCH DAILY TOPICAL Amitriptyline HCl 10 MG BEDTIME PO Triamcinolone Acetonide 40 MG PROCEDURE IM (CKD) Aspirin 81 MG DAILY PO Clopidogrel Bisulfate 75 MG DAILY PO Furosemide 40 MG DAILY PO Polyethylene Glycol 17 GM DAILY PO Senna 1 TAB DAILY PO (CKD) Venlafaxine HCl 75 MG DAILY PO Acetaminophen 650 MG Q6H PRN PRN PO Hydralazine HCl 10 MG Q6H PRN PRN PO Ondansetron HCl 4 MG TID PRN PRN SL Heparin Sodium 5,000 UNIT Q8H SUBQ Epoetin Donny-epbx 4,000 UNIT TuThSa@2100 SUBQ Gabapentin 300 MG BEDTIME PO Metoprolol Tartrate 25 MG BID PO Trazodone HCl 150 MG BEDTIME PO Zolpidem Tartrate 5 MG BEDTIME PRN PRN PO Physical Exam General appearance: alert, awake Neck: no JVD Cardiovascular: regular rate rhythm Respiratory: aerating well, clear to auscultatio n Abdomen: non-tender, normal bowel sounds, soft Extremities: Extremities: RT AKA Neuro/CUSTODIAN MANAGER: alert, oriented x 3 Skin: dry, normal temperature, AKA stump celluli tis, w wound dehiscence- Psychiatry: depressed, normal judgement/insight Results Findings/Data: Laboratory Tests 05/30/20 0415: [Embedded Image Not Available] Laboratory Tests 05/30 05/29 4164 2305 Chemistry Sodium (134 - 147 mEq/L) 141 Potassium (3.4 - 5.0 mEq/L) 3.9 Chloride (100 - 108 mEq/L) 104 Carbon Dioxide (21 - 33 mEq/l) 27 Anion Gap (0 - 20) 14 BUN (7 - 18 mg/dL) 45 H Creatinine (0.6 - 1.3 mg/dL) 4.6 H Glomerular Filtr Rate (70 - 80) 12.6 L Glucose (70 - 110 mg/dL) 86 POC Glucose (70 - 110 MG/DL) 95 Calcium (8.0 - 10.5 mg/dL) 8.5 Albumin (3.4 - 5.0 g/dL) 3.10 L Prealbumin (16.0 - 40.0 mg/dL) 27.0 Diagnosis, Assessment Plan Free Text DxA P Notes Free text DxA P notes: Assessment: 1.Mechanical fall 2.Traumatic brain injury with subdural hematoma 3. Right AKA pulmonary 2020 4. IMpaired mobility/Impaired gait 5. History of depression 6. Generalized weakness 7. Phantom pain 8. End-stage renal disease on hemodialysis 3 day s a week 9. Anemia 10. History of coronary artery disease, hyperten willy, and hyperlipidemia 05/21/20 Patient's doing well Sitting in a wheelchair Participating in therapy Family visiting at the bedside 05/22/20 Patient participating in therapy daily Reportedly patient is depressed He answered all my questions but seems to be sad May 23, 2020 No leukocytosis, anemia Continue to monitor renal function CT of the right femur without contrast: Choyh-gxf-icnr amputation changes with complex soft tissue fluid collection at the stump site. There is loss of fatty medullary density at the stump site. Osteomyelit is is not excluded. Correlate with MRI. Continue wound care May 24, 2020 The patient underwent ultrasound-guided aspirati on of superficial fluid collection May 25, 2020 Patient was started on Zoloft and venlafaxine Continue psychiatric medications Supportive psychotherapy for anxiety and depress ion Status post US guided aspiration of right AKA st ump yesterday. Continue hemodialysis and wound care Monitor H H Continue working with rehab May 26, 2020 Complaining of right stump pain, neuropathy and phantom limb pain as per pain management Working with rehab, better mood Hemodialysis yesterday May 27, 2020 Reports less pain, complains of generalized weak ness Cooperating with rehab There is some descent of the wound, seen by woun d care Continue antibiotics May 27, 2020 Reports less pain, complains of generalized weak ness Cooperating with rehab There is some descent of the wound, seen by woun d care Continue antibiotics Zosyn for right stump wound /cellulitis May 28, 2020: Right AKA stump cellulitis, w wound dehiscence 05/24/20 sp aspiration culture by IR of loculated fluid c ollection On IV Zosyn per ID. Wound care as per wound care team/Dr. Shruti Molina with xeroform to dehisced sites, cover w ith foam dressing daily. -Wound VAC is being planned by wound care 05/29/20 Aspiration done on 05/24/2020 shows no growth beto s far Right stump wound improving as per nursing Dressing was just changed today side not remove May 30, 2020 Discharge in a.m. as per rehab team Plan of care: -Continue with comprehensive inpatient rehabilit [facility] rehab team -Wound care as per Dr. Gilbert -Dialysis per nephrology team -Pain control -Fall precaution -DVT prophylaxis -GI prophylaxis -Pain control as pain management -Seizure precaution patient on Keppra -Continues present medications -Monitor labs -Consider discharge in a.m. -Plan of care discussed with the patient, galina palma's nurse, and Dr. Cavazos. Danny Cavazos 07/14/201938: Attestations Physician Attestation Agree w/findings plan: Patient seen and evaluated on 05/30/2020. I Agree with the findings and plan as documented by JOSE Meek. Plan of care coordinat ed with JOSE Meek. Pertinent labs, Imaging, and store sales consultant evaluations review ed. Electronically Signed by Javier Meek NP on 0 07/12/20 at 1851 RPT #:[id number] END OF REPORT 2020-05-30 13:39:00-00:00 [facility] Prog. Note REPORT#:[id number] REPORT STATUS: Signed DATE:05/30/20 TIME: 1338 PATIENT: DARIEN GROSSMAN UNIT #: [id number] ROOM/BED: [place] [address] : 45 AGE: 74 SEX: M ATTEND: Rosa Curtis MD ADM AUTHOR: Javier Meek NP * ALL edits or amendments must be made on the [employer]/computer document * Javier Meek 05/30/20 1339: Subjective Chief Complaint: Right AKA Possible depression Review of Systems Constitutional: Denies: chills, fever. ENT: Denies: earache, nasal congestion, sore throat. Respiratory: Denies: hemoptysis, parox no cturnal dyspnea, pleurisy, pleuritic pain, pneumonia , SOB, wheezing. Cardiovascular: Denies: chest pain, palpitations. GI: Denies: abdominal pain, nausea, vomiting. : Denies: flank pain, frequency, hematuria. Musculoskeletal: Denies: extremity pain, extr emity swelling, joint pain, lumbar pain, neck pain. Neuro: Denies: change in LOC, confusion, dizziness, foc al weakness, gait problem, headache, lightheaded, numbness, seizure, slurre d speech, spinning sensation, syncope, unable to speak, vision change. Psych: Denies: agitation, anxiety, auditory hallucinati on, change in mental status, confusion, delusional, depre ssion, homicidal ideation, hostile, insomnia, stress , suicidal ideation, visual hallucination. Objective General VS/I O: Vital Signs Date Temp Pulse Resp B/P B/P Mean Pulse Ox FiO2 05/29-05/30 36.5-37.1 61-69 12-20 138-155/60-68 86.1-97.4 95-97 Last Documented: Result Date Time Pulse Ox 95 05/30 0405 B/P 155/68 05/30 0405 B/P Mean 97.4 05/30 0405 Temp 36.5 05/30 0405 Pulse 68 05/30 0405 Resp 18 05/30 0405 O2 Delivery Room air 05/29 1902 24 hour I O ending at 0700: 05/30 0700 05/29 1900 Intake Total Output Total Balance Number 1 Bowel Movements Number Voids 1 PATIENT WEIGHT: Weight (lb): 171 Weight (oz): 12.16 Weight (kg): 77.909 Medications: Active Meds + DC'd Last 24 Hrs Hydrocodone Bitart/Acetaminophen 1 TAB Q4H PRN P RN PO Sertraline HCl 25 MG BEDTIME PO Albumin Human 12.5 GM ASDIR PRN IV Lidocaine HCl 0.5 ML ASDIR PRN I-DERMAL (CKD) Mannitol 12.5 GM ASDIR PRN IV Sodium Chloride 2,000 ML ASDIR PRN IV Sodium Chloride 10 ML ASDIR PRN IV Sodium Chloride 250 ML ASDIR PRN IV Piperacillin Sod/Tazobactam Sod 3.375 GM Q12H IV (DC) Sodium Chloride 100 ML Collagenase 1 APPLIC DAILY TOPICAL Lidocaine 1 PATCH DAILY TOPICAL Amitriptyline HCl 10 MG BEDTIME PO Triamcinolone Acetonide 40 MG PROCEDURE IM (CKD) Aspirin 81 MG DAILY PO Clopidogrel Bisulfate 75 MG DAILY PO Furosemide 40 MG DAILY PO Polyethylene Glycol 17 GM DAILY PO Senna 1 TAB DAILY PO (CKD) Venlafaxine HCl 75 MG DAILY PO Acetaminophen 650 MG Q6H PRN PRN PO Hydralazine HCl 10 MG Q6H PRN PRN PO Ondansetron HCl 4 MG TID PRN PRN SL Heparin Sodium 5,000 UNIT Q8H SUBQ Epoetin Donny-epbx 4,000 UNIT TuThSa@2100 SUBQ Gabapentin 300 MG BEDTIME PO Metoprolol Tartrate 25 MG BID PO Trazodone HCl 150 MG BEDTIME PO Zolpidem Tartrate 5 MG BEDTIME PRN PRN PO Physical Exam General appearance: alert, awake Neck: no JVD Cardiovascular: regular rate rhythm Respiratory: aerating well, clear to auscultatio n Abdomen: non-tender, normal bowel sounds, soft Extremities: Extremities: RT AKA Neuro/CUSTODIAN MANAGER: alert, oriented x 3 Skin: dry, normal temperature, AKA stump celluli tis, w wound dehiscence- Psychiatry: depressed, normal judgement/insight Results Findings/Data: Laboratory Tests 05/30/20 0415: [Embedded Image Not Available] Laboratory Tests 05/30 05/29 0415 2305 Chemistry Sodium (134 - 147 mEq/L) 141 Potassium (3.4 - 5.0 mEq/L) 3.9 Chloride (100 - 108 mEq/L) 104 Carbon Dioxide (21 - 33 mEq/l) 27 Anion Gap (0 - 20) 14 BUN (7 - 18 mg/dL) 45 H Creatinine (0.6 - 1.3 mg/dL) 4.6 H Glomerular Filtr Rate (70 - 80) 12.6 L Glucose (70 - 110 mg/dL) 86 POC Glucose (70 - 110 MG/DL) 95 Calcium (8.0 - 10.5 mg/dL) 8.5 Albumin (3.4 - 5.0 g/dL) 3.10 L Prealbumin (16.0 - 40.0 mg/dL) 27.0 Diagnosis, Assessment Plan Free Text DxA P Notes Free text DxA P notes: Assessment: 1.Mechanical fall 2.Traumatic brain injury with subdural hematoma 3. Right AKA pulmonary 2020 4. IMpaired mobility/Impaired gait 5. History of depression 6. Generalized weakness 7. Phantom pain 8. End-stage renal disease on hemodialysis 3 day s a week 9. Anemia 10. History of coronary artery disease, hyperten willy, and hyperlipidemia 05/21/20 Patient's doing well Sitting in a wheelchair Participating in therapy Family visiting at the bedside 05/22/20 Patient participating in therapy daily Reportedly patient is depressed He answered all my questions but seems to be sad May 23, 2020 No leukocytosis, anemia Continue to monitor renal function CT of the right femur without contrast: [id number] amputation changes with complex soft tissue fluid collection at the stump site. There is loss of fatty medullary density at the stump site. Osteomyelit is is not excluded. Correlate with MRI. Continue wound care May 24, 2020 The patient underwent ultrasound-guided aspirati on of superficial fluid collection May 25, 2020 Patient was started on Zoloft and venlafaxine Continue psychiatric medications Supportive psychotherapy for anxiety and depress ion Status post US guided aspiration of right AKA st ump yesterday. Continue hemodialysis and wound care Monitor H H Continue working with rehab May 26, 2020 Complaining of right stump pain, neuropathy and phantom limb pain as per pain management Working with rehab, better mood Hemodialysis yesterday May 27, 2020 Reports less pain, complains of generalized weak ness Cooperating with rehab There is some descent of the wound, seen by woun d care Continue antibiotics May 27, 2020 Reports less pain, complains of generalized weak ness Cooperating with rehab There is some descent of the wound, seen by woun d care Continue antibiotics Zosyn for right stump wound /cellulitis May 28, 2020: Right AKA stump cellulitis, w wound dehiscence 05/24/20 sp aspiration culture by IR of loculated fluid c ollection On IV Zosyn per ID. Wound care as per wound care team/Dr. Shruti Molina with xeroform to dehisced sites, cover w ith foam dressing daily. -Wound VAC is being planned by wound care 05/29/20 Aspiration done on 05/24/2020 shows no growth beto s far Right stump wound improving as per nursing Dressing was just changed today side not remove May 30, 2020 Discharge in a.m. as per rehab team Plan of care: -Continue with comprehensive inpatient rehabilit [facility] rehab team -Wound care as per Dr. Gilbert -Dialysis per nephrology team -Pain control -Fall precaution -DVT prophylaxis -GI prophylaxis -Pain control as pain management -Seizure precaution patient on Keppra -Continues present medications -Monitor labs -Consider discharge in a.m. -Plan of care discussed with the patient, galina palma'lennox nurse, and Dr. Cavazos. Danny Cavazos 07/14/20 1939: Attestations Physician Attestation Agree w/findings plan: Patient seen and evaluated on 05/30/2020. I Agree with the findings and plan as documented by JOSE Meek. Plan of care coordinat ed with JOSE Meek. Pertinent labs, Imaging, and store sales consultant evaluations review ed. Electronically Signed by Javier Meek MONOGRAM MAKER on 0 07/12/20 at 1851 Electronically Signed by Danny Keith MD 07/14/20 at 6885 RPT #:[id number] END OF REPORT 2020-05-30 10:00:00-00:00 [facility] ([facility]) Wound Care Progress Note REPORT#:[id number] REPORT STATUS: Signed DATE:05/30/20 TIME: 1000 PATIENT: DARIEN GROSSMAN UNIT #: [id number] ROOM/BED: [place] [address] : 45 AGE: 74 SEX: M ATTEND: Roas Curtis MD ADM AUTHOR: Shaila Gilbert * ALL edits or amendments must be made on the C-Note/computer document * Subjective Chief Complaint: FU R AKA wounds; c/o pain at stump Objective General Medications: Active Meds + DC'd Last 24 Hrs Hydrocodone Bitart/Acetaminophen 1 TAB Q4H PRN P RN PO Sertraline HCl 25 MG BEDTIME PO Albumin Human 12.5 GM ASDIR PRN IV Lidocaine HCl 0.5 ML ASDIR PRN I-DERMAL (CKD) Mannitol 12.5 GM ASDIR PRN IV Sodium Chloride 2,000 ML ASDIR PRN IV Sodium Chloride 10 ML ASDIR PRN IV Sodium Chloride 250 ML ASDIR PRN IV Piperacillin Sod/Tazobactam Sod 3.375 GM Q12H IV Sodium Chloride 100 ML Collagenase 1 APPLIC DAILY TOPICAL Lidocaine 1 PATCH DAILY TOPICAL Amitriptyline HCl 10 MG BEDTIME PO Triamcinolone Acetonide 40 MG PROCEDURE IM (CKD) Aspirin 81 MG DAILY PO Clopidogrel Bisulfate 75 MG DAILY PO Furosemide 40 MG DAILY PO Polyethylene Glycol 17 GM DAILY PO Senna 1 TAB DAILY PO (CKD) Venlafaxine HCl 75 MG DAILY PO Acetaminophen 650 MG Q6H PRN PRN PO Hydralazine HCl 10 MG Q6H PRN PRN PO Ondansetron HCl 4 MG TID PRN PRN SL Heparin Sodium 5,000 UNIT Q8H SUBQ Epoetin Donny-epbx 4,000 UNIT TuThSa@2100 SUBQ Gabapentin 300 MG BEDTIME PO Metoprolol Tartrate 25 MG BID PO Trazodone HCl 150 MG BEDTIME PO Zolpidem Tartrate 5 MG BEDTIME PRN PRN PO Nutrition assessment: The data set between the solid lines has been im ported from the dietitian's assessment. Any exceptions have been noted under Provider comments. BMI Calculated: 25.4 Nutrition related diagnosis: Nutrition diagnosis details: Nutrition problem: Increased nutrient needs Nutrition etiology: Chronic disease Nutrition signs and symptoms: ESRD ON HD Nutrition prescription: 1. C ontinue renal diet 2. D/C Nepro 1x/day 3. Encourage food ordering and monitor fo od intake 3. [place] food preferences within diet and encourage oral intake >75% 4. ADD LIQUACEL DAILY Dietitian name: Breann Olivera DIETITIPOPEYE Assessment completed: 05/26/20 Provider comments on imported dietitian assessme nt: Physical Exam General appearance: awake Skin: R AKA wound dehiscence on both medial late ral ends of stump ( abt 0.5x0.5x0.2 cm) w/ less slough; few superficial dehiscence areas at entire incision site. Minimal erythema @ medial aspect. Results Findings/Data: Laboratory Tests: 05/30 05/29 0415 2305 Chemistry Sodium (134 - 147 mEq/L) 141 Potassium (3.4 - 5.0 mEq/L) 3.9 Chloride (100 - 108 mEq/L) 104 Carbon Dioxide (21 - 33 mEq/l) 27 Anion Gap (0 - 20) 14 BUN (7 - 18 mg/dL) 45 H Creatinine (0.6 - 1.3 mg/dL) 4.6 H Glomerular Filtr Rate (70 - 80) 12.6 L Glucose (70 - 110 mg/dL) 86 POC Glucose (70 - 110 MG/DL) 95 Calcium (8.0 - 10.5 mg/dL) 8.5 Albumin (3.4 - 5.0 g/dL) 3.10 L Prealbumin (16.0 - 40.0 mg/dL) 27.0 Diagnosis, Assessment Plan Free Text A P: Right AKA stump cellulitis, w wound dehiscence- ( sp aspiration culture by IR of loculated fluid collection ) ; Superficial cx : Pseudomonas (R-Merrem), and CoN. Aspirate Cx neg. On IV Zosyn per ID. Santyl with xeroform to dehisced sites , cover w ith foam dressing daily. May start WVAC to sites once less than 20% slough. [ x] Optimize Nutrition and Glycemic Control [ x] Pressure relieving inte rventions (Low Air Mattress, Prevalon boot, Turn q2h ) [ x] Nursing to implement impaired skin integrit y care plan as per skin care protocol Coordinattion of care D/W [ ] Other MD's [ x ] P atient [ ] Family [ ] Nursing [ ] Case Management at 2110 RPT #:[id number] END OF REPORT 2020-05-30 09:01:00-00:00 [facility] ([facility]) Pain Management Progress Note REPORT#:[id number] REPORT STATUS: Signed DATE:05/30/20 TIME: 900 PATIENT: DARIEN GROSSMAN UNIT #: [id number] ROOM/BED: [place] [address] : 45 AGE: 74 SEX: M ATTEND: Rosa Curtis MD ADM AUTHOR: Dusty Smiley MONOGRAM MAKER * ALL edits or amendments must be made on the [employer]/computer document * Subjective Chief complaint: Patient seen and examined. Chart and VIJAYA reyes Patient being seen for Left thigh pain, lateral femoral cutaneous neuralgia, Right AKA pain, Peripheral neuropathy, phantom l imb pain right lower extremity, and constipation. Patient is doing well with pain control. He is g oing home tomorrow. Patient states symptoms are manageable with use of current medications. No fever/chills, chest pain, dyspnea, no emesis, pruritus, or hallucinations. 14-point ROS undertaken unremarkable except as n oted. Objective General VS/I O: Vital Signs Date Temp Pulse Resp B/P B/P Mean Pulse Ox FiO2 05/29-05/30 97.7-98.8 61-69 12-20 117-155/60-68 80.6-97.4 95-97 Last Documented: Result Date Time Pulse Ox 95 05/30 0405 B/P 155/68 05/30 0405 B/P Mean 97.4 05/30 0405 Temp 97.7 05/30 0405 Pulse 68 05/30 0405 Resp 18 05/30 0405 O2 Delivery Room air 05/29 1902 24 hour I O ending at 0700: 05/30 0700 05/29 1900 Intake Total Output Total Balance Number 1 Bowel Movements Number Voids 1 PATIENT WEIGHT: Weight (lb): 171 Weight (oz): 12.16 Weight (kg): 77.909 Medications: Active Meds + DC'd Last 24 Hrs Hydrocodone Bitart/Acetaminophen 1 TAB Q4H PRN P RN PO Sertraline HCl 25 MG BEDTIME PO Albumin Human 12.5 GM ASDIR PRN IV Lidocaine HCl 0.5 ML ASDIR PRN I-DERMAL (CKD) Mannitol 12.5 GM ASDIR PRN IV Sodium Chloride 2,000 ML ASDIR PRN IV Sodium Chloride 10 ML ASDIR PRN IV Sodium Chloride 250 ML ASDIR PRN IV Piperacillin Sod/Tazobactam Sod 3.375 GM Q12H IV Sodium Chloride 100 ML Collagenase 1 APPLIC DAILY TOPICAL Lidocaine 1 PATCH DAILY TOPICAL Amitriptyline HCl 10 MG BEDTIME PO Triamcinolone Acetonide 40 MG PROCEDURE IM (CKD) Aspirin 81 MG DAILY PO Clopidogrel Bisulfate 75 MG DAILY PO Furosemide 40 MG DAILY PO Polyethylene Glycol 17 GM DAILY PO Senna 1 TAB DAILY PO (CKD) Venlafaxine HCl 75 MG DAILY PO Acetaminophen 650 MG Q6H PRN PRN PO Hydralazine HCl 10 MG Q6H PRN PRN PO Ondansetron HCl 4 MG TID PRN PRN SL Heparin Sodium 5,000 UNIT Q8H SUBQ Epoetin Donny-epbx 4,000 UNIT TuThSa@2100 SUBQ Gabapentin 300 MG BEDTIME PO Metoprolol Tartrate 25 MG BID PO Trazodone HCl 150 MG BEDTIME PO Zolpidem Tartrate 5 MG BEDTIME PRN PRN PO Physical Exam General appearance: alert, awake, oriented, no a cute distress Head/eyes: atraumatic, normocephalic, normal con junctiva/sclera ENT: normal pharynx, moist mucosal membranes Neck: full range of motion, non-tender, supple/n o meningismus Cardiovascular: regular rate rhythm Respiratory: clear to auscultation, no distress, aerating well Abdomen quadrants LLQ normal bowel sounds, LUQ normal roberto l sounds, RLQ normal bowel sounds, RUQ normal bowel sounds Extremities: moves all, no edema, pedal pulses, right AKA Neuro/CUSTODIAN MANAGER: no motor deficits, no sensory deficit s, CNII-XII grossly intact Skin: dry, intact, no rash Results Findings/data: Laboratory Tests: 05/30 05/29 0415 2305 Chemistry Sodium (134 - 147 mEq/L) 141 Potassium (3.4 - 5.0 mEq/L) 3.9 Chloride (100 - 108 mEq/L) 104 Carbon Dioxide (21 - 33 mEq/l) 27 Anion Gap (0 - 20) 14 BUN (7 - 18 mg/dL) 45 H Creatinine (0.6 - 1.3 mg/dL) 4.6 H Glomerular Filtr Rate (70 - 80) 12.6 L Glucose (70 - 110 mg/dL) 86 POC Glucose (70 - 110 MG/DL) 95 Calcium (8.0 - 10.5 mg/dL) 8.5 Albumin (3.4 - 5.0 g/dL) 3.10 L Prealbumin (16.0 - 40.0 mg/dL) 27.0 Diagnosis, Assessment Plan Free text A P: A/P: Patient is a 74 year old male presenting with: Left thigh pain, lateral femoral cutaneous neura lgia -We offered to perform a left lateral femoral cu taneous nerve block to see if this helps with the pain. Patient declined -05/24-decrease Otis 10/325 to Otis 7.5/325 james ry 4 as needed -Lidoderm patch to left thigh daily -Otis 7.5/325 mg oral every 4 hours as needed f or pain -manageable Right AKA discomfort -05/23/2020-CT lower extremity - Above th e knee amputation changes with complex soft tissue fluid collection at the stum p site. There is loss of fatty medullary density at the stump site. Osteomyelitis is not excluded. C orrelate with MRI as clinically indicated. -IV antibiotics , appreciate infectious disease input -Pain medications as outlined above Peripheral neuropathy, phantom limb pain right l ower extremity -Gabapentin 300 mg oral at bedtime -amitriptyline 10 mg oral at bedtime -stable Antalgic/impaired gait -PT/OT -Gait training, improve endurance and strength -Transfer training -PMR following Falls -Fall precautions End-stage renal disease on hemodialysis -Nephrology following Subdural hematoma -Monitor mental status with opioids and other se dative medications Depression -monitoring Constipation -Monitor closely while patient is using opioid n arcotics -MiraLAX 17 g p.o. daily -Senna 1 tab p.o. daily -Manageable Past medical history: Subdural hematoma, CAD, en d-stage renal disease on HD, hypertension, hyperlipidemia, septic art hritis of prosthesis of previous right TKA, depression Past surgical history: Right TKR, right AKA, cor onary stents Social history: Negative for alcohol, tobacco, i llicit drug use Family history: Not relevant Allergies: Penicillin, iodine Disposition: Discharge date 05/31. Otis 7.5/325mg q6h PRN 7 day supply sent to [facility] in [facility]. All pertinent diagnostics/labs from the last 24 hours and during the course of the admission were reviewed. Plan discussed with the patient and the nurse. A ll questions were answered. Patient will be monitored for deleteriou s side effects associated with opioids and sedative medications. Me dications will be adjusted further clinical course. Risks versus benefits of opioid medications were reviewed to include, but not limited to respiratory depression, accid ental overdose, altered mental status, sudden , constipation which could result in bowel obstruction, seizures, withdrawal, dependency/addiction, risk for falls . Goals: Daily pain control. Case discussed with Dr Lofton whom agrees. 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: Total Prescriptions 28 Total Private Pay 0 Total Prescribers 4 Total Pharmacies 1 05/06/2020 1 05/06/2020 HYDROCODONE-ACETAMIN 10- 325 MG 30.0 7 [facility] SPA [id number] [facility] (1602) 0 42.86 MME Comm Ins [place] 04/20/2020 1 12/24/2019 ZOLPIDEM TARTRATE 10 MG TABLET 30.0 30 PE LAT [id number] [facility] (1602) 4 Comm Ins [place] 03/21/2020 1 12/24/2019 ZOLPIDEM TARTRATE 10 MG TABLET 30.0 30 PE LAT [id number] [facility] (1602) 3 Comm Ins [place] 02/20/2020 1 12/24/2019 ZOLPIDEM TARTRATE 10 MG TABLET 30.0 30 PE LAT [id number] [facility] (1602) 2 Comm Ins [place] 01/21/2020 1 12/24/2019 ZOLPIDEM TARTRATE 10 MG TABLET 30.0 30 PE LAT [id number] [facility] (1602) 1 Comm Ins [place] 12/24/2019 1 12/24/2019 ZOLPIDEM TARTRATE 10 MG TABLET 30.0 30 PE LAT [id number] [facility] (1602) 0 Comm Ins [place] 11/25/2019 1 07/07/2019 ZOLPIDEM TARTRATE 10 MG TABLET 30.0 30 PE LAT [id number] [facility] (1602) 5 Comm Ins [id number] (1998) [address] [place] [address] at 1229 RPT #:[id number] END OF REPORT 2020-05-30 09:01:00-00:00 [facility] Progress Note REPORT#:[id number] REPORT STATUS: Signed DATE:05/30/20 TIME: 900 PATIENT: DARIEN GROSSMAN UNIT #: [id number] ROOM[facility]BED: [facility] : 45 AGE: 74 SEX: M ATTEND: Rosa Curtis MD ADM AUTHOR: Dusty Smiley MONOGRAM MAKER * ALL edits or amendments must be made on the C-Note/computer document * Subjective Chief complaint: Patient seen and examined. Chart and VIJAYA reyes Patient being seen for Left thigh pain, lateral femoral cutaneous neuralgia, Right AKA pain, Peripheral neuropathy, phantom l imb pain right lower extremity, and constipation. Patient is doing well with pain control. He is g oing home tomorrow. Patient states symptoms are manageable with use of current medications. No fever/chills, chest pain, dyspnea, no emesis, pruritus, or hallucinations. 14-point ROS undertaken unremarkable except as n oted. Objective General VS/I O: Vital Signs Date Temp Pulse Resp B/P B/P Mean Pulse Ox FiO2 05/29-05/30 97.7-98.8 61-69 12-20 117-155/60-68 80.6-97.4 95-97 Last Documented: Result Date Time Pulse Ox 95 05/30 0405 B/P 155/68 05/30 0405 B/P Mean 97.4 05/30 0405 Temp 97.7 05/30 0405 Pulse 68 05/30 0405 Resp 18 05/30 0405 O2 Delivery Room air 05/29 1902 24 hour I O ending at 0700: 05/30 0700 05/29 1900 Intake Total Output Total Balance Number 1 Bowel Movements Number Voids 1 PATIENT WEIGHT: Weight (lb): 171 Weight (oz): 12.16 Weight (kg): 77.909 Medications: Active Meds + DC'd Last 24 Hrs Hydrocodone Bitart/Acetaminophen 1 TAB Q4H PRN P RN PO Sertraline HCl 25 MG BEDTIME PO Albumin Human 12.5 GM ASDIR PRN IV Lidocaine HCl 0.5 ML ASDIR PRN I-DERMAL (CKD) Mannitol 12.5 GM ASDIR PRN IV Sodium Chloride 2,000 ML ASDIR PRN IV Sodium Chloride 10 ML ASDIR PRN IV Sodium Chloride 250 ML ASDIR PRN IV Piperacillin Sod/Tazobactam Sod 3.375 GM Q12H IV Sodium Chloride 100 ML Collagenase 1 APPLIC DAILY TOPICAL Lidocaine 1 PATCH DAILY TOPICAL Amitriptyline HCl 10 MG BEDTIME PO Triamcinolone Acetonide 40 MG PROCEDURE IM (CKD) Aspirin 81 MG DAILY PO Clopidogrel Bisulfate 75 MG DAILY PO Furosemide 40 MG DAILY PO Polyethylene Glycol 17 GM DAILY PO Senna 1 TAB DAILY PO (CKD) Venlafaxine HCl 75 MG DAILY PO Acetaminophen 650 MG Q6H PRN PRN PO Hydralazine HCl 10 MG Q6H PRN PRN PO Ondansetron HCl 4 MG TID PRN PRN SL Heparin Sodium 5,000 UNIT Q8H SUBQ Epoetin Donny-epbx 4,000 UNIT TuThSa@2100 SUBQ Gabapentin 300 MG BEDTIME PO Metoprolol Tartrate 25 MG BID PO Trazodone HCl 150 MG BEDTIME PO Zolpidem Tartrate 5 MG BEDTIME PRN PRN PO Physical Exam General appearance: alert, awake, oriented, no a cute distress Head/eyes: atraumatic, normocephalic, normal con junctiva/sclera ENT: normal pharynx, moist mucosal membranes Neck: full range of motion, non-tender, supple/n o meningismus Cardiovascular: regular rate rhythm Respiratory: clear to auscultation, no distress, aerating well Abdomen quadrants LLQ normal bowel sounds, LUQ normal roberto l sounds, RLQ normal bowel sounds, RUQ normal bowel sounds Extremities: moves all, no edema, pedal pulses, right AKA Neuro/CUSTODIAN MANAGER: no motor deficits, no sensory deficit s, CNII-XII grossly intact Skin: dry, intact, no rash Results Findings/data: Laboratory Tests: 05/30 05/29 0415 2305 Chemistry Sodium (134 - 147 mEq/L) 141 Potassium (3.4 - 5.0 mEq/L) 3.9 Chloride (100 - 108 mEq/L) 104 Carbon Dioxide (21 - 33 mEq/l) 27 Anion Gap (0 - 20) 14 BUN (7 - 18 mg/dL) 45 H Creatinine (0.6 - 1.3 mg/dL) 4.6 H Glomerular Filtr Rate (70 - 80) 12.6 L Glucose (70 - 110 mg/dL) 86 POC Glucose (70 - 110 MG/DL) 95 Calcium (8.0 - 10.5 mg/dL) 8.5 Albumin (3.4 - 5.0 g/dL) 3.10 L Prealbumin (16.0 - 40.0 mg/dL) 27.0 Diagnosis, Assessment Plan Free text A P: A/P: Patient is a 74 year old male presenting with: Left thigh pain, lateral femoral cutaneous neura lgia -We offered to perform a left lateral femoral cu taneous nerve block to see if this helps with the pain. Patient declined -05/24-decrease Otis 10/325 to Otis 7.5/325 james ry 4 as needed -Lidoderm patch to left thigh daily -Otis 7.5/325 mg oral every 4 hours as needed f or pain -manageable Right AKA discomfort -05/23/2020-CT lower extremity - Above th e knee amputation changes with complex soft tissue fluid collection at the stum p site. There is loss of fatty medullary density at the stump site. Osteomyelitis is not excluded. C orrelate with MRI as clinically indicated. -IV antibiotics , appreciate infectious disease input -Pain medications as outlined above Peripheral neuropathy, phantom limb pain right l ower extremity -Gabapentin 300 mg oral at bedtime -amitriptyline 10 mg oral at bedtime -stable Antalgic/impaired gait -PT/OT -Gait training, improve endurance and strength -Transfer training -PMR following Falls -Fall precautions End-stage renal disease on hemodialysis -Nephrology following Subdural hematoma -Monitor mental status with opioids and other se dative medications Depression -monitoring Constipation -Monitor closely while patient is using opioid n arcotics -MiraLAX 17 g p.o. daily -Senna 1 tab p.o. daily -Manageable Past medical history: Subdural hematoma, CAD, en d-stage renal disease on HD, hypertension, hyperlipidemia, septic art hritis of prosthesis of previous right TKA, depression Past surgical history: Right TKR, right AKA, cor onary stents Social history: Negative for alcohol, tobacco, i llicit drug use Family history: Not relevant Allergies: Penicillin, iodine Disposition: Discharge date 05/31. Otis 7.5/325mg q6h PRN 7 day supply sent to [facility] in [facility]. All pertinent diagnostics/labs from the last 24 hours and during the course of the admission were reviewed. Plan discussed with the patient and the nurse. A ll questions were answered. Patient will be monitored for deleteriou s side effects associated with opioids and sedative medications. Me dications will be adjusted further clinical course. Risks versus benefits of opioid medications were reviewed to include, but not limited to respiratory depression, accid ental overdose, altered mental status, sudden , constipation which could result in bowel obstruction, seizures, withdrawal, dependency/addiction, risk for falls . Goals: Daily pain control. Case discussed with Dr Lofton whom agrees. 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: Total Prescriptions 28 Total Private Pay 0 Total Prescribers 4 Total Pharmacies 1 05/06/2020 1 05/06/2020 HYDROCODONE-ACETAMIN 10- 325 MG 30.0 7 [facility] SPA [id number] [facility] (1602) 0 42.86 MME Comm Ins [place] 04/20/2020 1 12/24/2019 ZOLPIDEM TARTRATE 10 MG TABLET 30.0 30 PE LAT [id number] [facility] (1602) 4 Comm Ins [place] 03/21/2020 1 12/24/2019 ZOLPIDEM TARTRATE 10 MG TABLET 30.0 30 PE LAT [id number] [facility] (1602) 3 [place] Ins [place] 02/20/2020 1 12/24/2019 ZOLPIDEM TARTRATE 10 MG TABLET 30.0 30 PE LAT [id number] [facility] (1602) 2 [place] Ins [place] 01/21/2020 1 12/24/2019 ZOLPIDEM TARTRATE 10 MG TABLET 30.0 30 PE LAT [id number] [facility] (1602) 1 [place] 12/24/2019 1 12/24/2019 ZOLPIDEM TARTRATE 10 MG TABLET 30.0 30 PE LAT [id number] [facility] (1602) 0 [place] 11/25/2019 1 07/07/2019 ZOLPIDEM TARTRATE 10 MG TABLET 30.0 30 PE LAT [id number] [facility] (1602) 5 Comm Ins [place] [id number] [id number]) [phone] [place] [id number] at 2499 Electronically Signed by Herman Lofton MD on 0 05/31/20 at 3252 RPT #:[id number] END OF REPORT 2020-05-30 07:10:00-00:00 HCACL [facility] ([facility]) Clinical Note REPORT#:[id number] REPORT STATUS: Signed DATE:05/30/20 TIME: 709 PATIENT: DARIEN GROSSMAN UNIT #: [id number] ROOM/BED: [place] [address] : 45 AGE: 74 SEX: M ATTEND: Rosa Curtis MD ADM AUTHOR: Danny Keith MD * ALL edits or amendments must be made on the C-Note/computer document * Clinical Note Note: 74-year-old male 1. Fall 2. Subdural hematoma 3. TBI (traumatic brain injury) 4. History of right above knee amputation (Onse t: 04/03/20) 5. ESRD on dialysis 6. History of coronary artery disease 7. History of coronary angioplasty with inserti on of stent 8. HLD (hyperlipidemia) 9. Anemia of chronic disease 10. Frequent falls 11. Hypoalbuminemia 12. Leukocytosis 13. Limb pain 14. Impaired functional mobility, balance, gait , and endurance 05/24: Underwent ultrasound guided aspiration of superficial fluid collection and 15 cc of bloody fluid removed. Continue with pain control and IV antibiotics. Continue with renal diet. Blood pre ssure is stable. 05/25: Underwent US guided aspiration of right AK A stump yesterday. Doing well today. Nephrology evaluation noted and continue with hemodialysis. Continue with rehab care. Wound care evaluation noted and continue with wound care. 05/26: Right stump pain and phantom pain. Partici fay in rehab. 05/27: Stable. No new complaints. Continue presen t care. 05/28: She states that she is feeling well. No ne w complaints. 05/29: Doing well. Nephrology had a long discussi on regarding dialysis and options related to treatment. 05/30: Feeling well. Affect improved. Sleeping we ll. Plan We will continue with telemetry, BP control, gly cemic control, pain control, electrolyte control, DVT/GI prophylaxis, repeat labs. PT/OT/ST. Wound care. Electronically Signed by Danny Keith MD o n 06/01/20 at 1247 [facility] #:[id number] END OF REPORT 2020-05-30 06:45:00-00:00 HCACL [facility] ([facility]) Rehab Progress Note REPORT#:[id number] REPORT STATUS: Signed DATE:05/30/20 TIME: 0645 PATIENT: DARIEN GROSSMAN UNIT #: [id number] ROOM/BED: [place] [address] : 45 AGE: 74 SEX: M ATTEND: Rosa Curtis MD ADM AUTHOR: Sekou Curtis MD * ALL edits or amendments must be made on the C-Note/Above All Software document * Subjective Chief complaint: Rehab follow-up Generalized weakness Patient doing well Ready for discharge in the morning Requesting to receive antibiotics at hemodialysi s today-discussed with nurse Affect is improved Slept well BM+ Denies PATEL/N/V/D 14 systems reviewed and neg. except that above. Patient reports: No: shortness of breath, vomiting, constipation. Nursing reports: No: new events overnight. Objective General VS: Vital Signs: Date Time Temp Pulse Resp B/P B/P Pulse O2 O2 F low FiO2 Mean Ox Delivery Rate 05/30 0405 97.7 68 18 155/68 97.4 95 05/29 1902 98.8 69 20 143/67 92.5 97 Room air 05/29 1642 98.2 61 12 138/60 86.1 97 05/29 0946 98.2 69 16 117/63 80.6 96 PATIENT WEIGHT: Weight (lb): 171 Weight (oz): 12.16 Weight (kg): 77.909 Medications: Active Meds + DC'd Last 24 Hrs Hydrocodone Bitart/Acetaminophen 1 TAB Q4H PRN P RN PO Sertraline HCl 25 MG BEDTIME PO Albumin Human 12.5 GM ASDIR PRN IV Lidocaine HCl 0.5 ML ASDIR PRN I-DERMAL (CKD) Mannitol 12.5 GM ASDIR PRN IV Sodium Chloride 2,000 ML ASDIR PRN IV Sodium Chloride 10 ML ASDIR PRN IV Sodium Chloride 250 ML ASDIR PRN IV Piperacillin Sod/Tazobactam Sod 3.375 GM Q12H IV Sodium Chloride 100 ML Collagenase 1 APPLIC DAILY TOPICAL Lidocaine 1 PATCH DAILY TOPICAL Amitriptyline HCl 10 MG BEDTIME PO Triamcinolone Acetonide 40 MG PROCEDURE IM (CKD) Aspirin 81 MG DAILY PO Clopidogrel Bisulfate 75 MG DAILY PO Furosemide 40 MG DAILY PO Polyethylene Glycol 17 GM DAILY PO Senna 1 TAB DAILY PO (CKD) Venlafaxine HCl 75 MG DAILY PO Acetaminophen 650 MG Q6H PRN PRN PO Hydralazine HCl 10 MG Q6H PRN PRN PO Ondansetron HCl 4 MG TID PRN PRN SL Heparin Sodium 5,000 UNIT Q8H SUBQ Epoetin Donny-epbx 4,000 UNIT TuThSa@2100 SUBQ Gabapentin 300 MG BEDTIME PO Metoprolol Tartrate 25 MG BID PO Trazodone HCl 150 MG BEDTIME PO Zolpidem Tartrate 5 MG BEDTIME PRN PRN PO Nutrition assessment: BMI-25.4 Functional Progress Functional progress: - PT DAILY NOTE - - PT daily note comment: S: Pt HAS NO NEW COMPLAI NTS O: Pt SEEN FOR 90MINS OF SKILLED THERAPY ON EDUCATION, FUNCTIONAL TRAINING, GAIT, WCCM EDUCATION- DISCUSSED DME NEEDS, FALL PREVENTION , SAFETY PRECAUTION, ENERGY CONSERVATION FT- INDEPENDENT TRANSFER WC<>MAT, WC<>TOILET, INDEPENDENT SIT<>STAND, INDEPENDENT EOB SIT ON MAT,SBA TO MIN A IN 4"STEP UPS TO PLATFORM HOPING BACKWARDS X2. TRANSFER WC<>TOILET WITH STATIC STANDING WHILE MANAGING CLOTHES. GAIT- IN SBA AMBULATED 200FT 75FT USING RW WC FOLLOW USING HOP TO GAIT, VC TO EDUCATE Pt NOT TO SWING PAST WALKER FRONT BAR FOR SAFETY REASONS Pt ACKNOWLEDGED UNDERSTANDING. WCCM- COMPLETED 600FT USING LIVE UE L LE ON LEGREST FOR CARDIO ENDURANCE EXERCISE. A: Pt PROGRESSING TOWARDS GOALS. P: CONTNIUE POC Pt LEFT ON WC IN ROOM. ALL ITEMS IN REACH RN AWARE POST PT. Pt IN RA O2 SATS REMAINED ABOVE 90%. Pt MAINTAINED NWB STATUS ON R - OT DAILY NOTE - - Range of motion and strengt h: BUE STRENGTH AND ENDURANCE - BUE ARM BIKE, TABLE TIA 8# 6X25, DOWELS 3# 8X25 Transfers: BED MOBILITY - INDEPENDENT BED<>WC - SETUP WC MOBILITY Activities of daily living: GROOMING - INDEPEND ENT FOOTWEAR - SETUP Cognition: PATIENT FOLLOWS MULTI STEP COMMANDS. OT daily note comment: PATIENT REPORTED PAIN IN LOWER BACK 5/10; PAIN MEDS GIVEN BY COLTON JURADO. PATIENT SEEN FOR 90 MINS OF SKILLED O T FOR INREASED STRENGTH, ENDURANCE, INDEPENDENCE W AD L TASKS, FUNCTIONAL XFERS, AND SAFETY AWARENESS. PATIENT TOLERATED ALL TASKS WELL W REST BREAKS. PATIENT EDUCATED ON FALLS, SAFETY AWARENESS, AND COMPENSATORY TECHNIQUES F OR ADL TASKS. CONTINUE OT POC SUPERVISED BY OSCAR CASE. Physical Exam General appearance: alert, awake, oriented Psych: alert, normal affect, oriented x 3 HEENT: anicteric, mucosal membranes moist, pupil s reactive to light, sclera clear, NC/AT Neck: non-tender, supple, no JVD Cardiovascular: regular rate rhythm, S1/S2, no m urmur Respiratory: aerating well, clear bilaterally, c lear to auscultation Abdomen: bowel sounds presen t, non-distended, soft, non-tender, no mass palpable Skin: dry, normal temperature, L AKA incision w 2 open areas of dehiscence-no drainage, no odor. Musculoskeletal - general: Musculoskeletal - general: normal tone, no swel ling, MMT moves all against gravity. BUE 4/5, SHORT PIECE HANDLER GOOD, RHF 3+/5, LLE 4/5. L calf NT, No cords. TTP L lateral thigh above trochanter bursae. Neuro/CUSTODIAN MANAGER: alert, oriented X 3, CNII-XII intact, normal speech, reflexes equal bilat Results Findings/Data: Laboratory Tests: 05/30 05/29 0415 2305 Chemistry Sodium (134 - 147 mEq/L) 141 Potassium (3.4 - 5.0 mEq/L) 3.9 Chloride (100 - 108 mEq/L) 104 Carbon Dioxide (21 - 33 mEq/l) 27 Anion Gap (0 - 20) 14 BUN (7 - 18 mg/dL) 45 H Creatinine (0.6 - 1.3 mg/dL) 4.6 H Glomerular Filtr Rate (70 - 80) 12.6 L Glucose (70 - 110 mg/dL) 86 POC Glucose (70 - 110 MG/DL) 95 Calcium (8.0 - 10.5 mg/dL) 8.5 Albumin (3.4 - 5.0 g/dL) 3.10 L Prealbumin (16.0 - 40.0 mg/dL) 27.0 Laboratory Tests 05/29 05/29 05/30 05/30 0500 2305 0415 0415 Chemistry Sodium (134 - 147 mEq/L) 137 141 Potassium (3.4 - 5.0 mEq/L) 3.9 3.9 Chloride (100 - 108 mEq/L) 99 104 Carbon Dioxide (21 - 33 mEq/l) 28 27 Anion Gap (0 - 20) 13 14 BUN (7 - 18 mg/dL) 11 45 Creatinine (0.6 - 1.3 mg/dL) 4.5 4.6 Glomerular Filtr Rate (70 - 80) 12.9 12.6 Glucose (70 - 110 mg/dL) 77 86 POC Glucose (70 - 110 MG/DL) 95 Calcium (8.0 - 10.5 mg/dL) 8.8 8.5 Albumin (3.4 - 5.0 g/dL) Cancelled 3.10 Prealbumin (16.0 - 40.0 mg/dL) Cancelled 27.0 Radiology data: Recent Impressions: CAT SCAN - CT LOWER EXTRM W/O C RT 05/23 1728 Report Impression - Status: SIGNED Entered: 05/23/2020 1806 IMPRESSION: Above the knee amputation changes wi th complex soft tissue fluid collection at the stump site. There is los s of fatty medullary density at the stump site. Osteomyelitis is not excluded. Correlate with MRI as clinically indicated. SL: SG-H Impression By: [email or web address] - Dominic Mena M.D. ULTRASOUND - USG NDL PLACEMENT (Bxg/Asp) 05/24 1 434 Report Impression - Status: SIGNED Entered: 05/24/2020 1515 IMPRESSION: 1. Technically successful ultrasound-guided aspi ration of a right knee stump collection. Impression By: [email or web address] - Paloma Arvizu D.O. Objective Comments Objective comments: Chemistry: 05/30 05/29 0415 0500 Chemistry Creatinine (0.6 - 1.3 mg/dL) 4.6 H 4.5 H 05/30 0700 05/29 2300 05/29 1500 Intake Total Output Total Balance Number 1 Bowel Movements Number Voids 1 Diagnosis, Assessment Plan Free Text A P: Assessment: Mechanical fall TBI with SDH, no surgical intervention required Stable acute L parafalcine SDH extending into the L tentorium with min left to right midline shift 04/03-Recent right AKA, previous right TKA compli cated by infection Impaired mobility and gait Generalized weakness Frequent falls 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 ESRD on hemodialysis Hyperkalemia resolved History of CAD Hypertension HLD Anemia of chronic disease Right AKA wound dehiscence Left lateral thigh pain Left thigh pain, lateral femoral cutaneous neura lgia Significant impairment in self-care and function al mobility 05/24-Technically successful ultrasound-g uided aspiration of a right knee stump collection. 15 mL of blood-tinged fluid. 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 Unspecified anxiety disorder. Plan: -Comprehensive inpatient rehabilitation with physical, occupational and speech therapy 3 hours a day for 5 to 6 days per week-2 05/18 rehabilitation physician supervision-03/09 rehabilitat ion nursing care-Case management for safe discharge planning-Rehab MD to monitor comorbidities and f unctional progress. -Decubitus prevention-protective hydrating lotio n-turn every 2 hours-offload -Right AKA wound dehiscence- wound care consulted-Dr. Gilbert-for now Xeroform and Mepilex -Consult new life brace management/prosthetics -Strict fall and safety precaution -DVT prophylaxis-SCDs and subcutaneous heparin -GI prophylaxis-Protonix -Early mobilization-OOB to chair -Work on bed mobility, transfer training , ADLs, pre-gait and gait exercises as tolerable. 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 intake, c heck albumin 3.2, 3.1 and prealbumin 13.1, 14.3, 27 dietary consult, prote in supplements. -Await consultants input, internal medicine, nep hrology, pain management, ID, wound care -Domenica for a total of 7 days-to be completed to efrain 05/21-completed -Continue right AKA incisional dressing care-wou nds looking better -Prosthetic company consulted for evaluation -Continue aspirin and Plavix-Lasix -History of depression/anxie ty continue Carlyn Dixon Effexor-office asst bring in patient's home Pristiq -Monitor hemoglobin on Epogen -Hemodialysis as per nephrology-Saturday -Blood pressure currently stable on current medi cation -Renal diet -Left hip pain-x-ray of the left hip and pelvis showed no acute osseous fracture. The hip joint spaces are preserved-sat itor -Elevated WBC-possible infec amado right NASEEM-culture wound pending-no fever-repeat CBC 05/21-given patient's history of staph infect ion prior will consult ID. Patient seen by ID-patient placed on vancomycin now discontinued -Right AKA stump cellulitis, w wound deh iscence- ( sp aspiration culture by IR of loculated fluid collection ) ; Superficial cx : Pseudomonas (R-Merrem), and CoN. Aspirate Cx neg. On IV Zosyn per ID-as per wound care -Santyl with xeroform to dehisced sites, cover w ith foam dressing daily. May start WVAC to sites once less than 20% slough. -Right AKA stump cellulitis-R/O fluid collection , check CT extremity without contrast-Superficial cx: Pseudomonas (R-Merrem), and CoNS-ESR 114/CRP 192 significant elevated-On Cefepime, change to Zosy n as per ID -05/23-CT of RLE-CT(+) 6/6/4cm loculated fluid co llection Infectious disease believes this is more of a seroma. I discussed w ith ID Dr. Sierra and he agrees with vascular surgery consul tation. I would like to treat this conservatively as possible since patient on rehab. Continue Zosyn as per ID-HAS MIDLINE -05/24 ID ordered special procedures IR aspiratio n of fluid -Depression worse-patient's office manag er to bring in patient's home Prestiq- psychiatry consult-started o n Zoloft-monitor closely-patient upset and depressed and became more depressed after he learned about the results of the CT. -Depression improved-patient being treated for m ajor depression recurrent and started on Zoloft-wean venlafaxine over time. Di scontinue buspirone. Continue trazodone and Ambien for insomnia-as per psychia try 05/24-Technically successful ultrasound-g uided aspiration of a right knee stump collection. 15 mL of blood-tinged fluid. Culture s pending-cont abx x 1 week total if aspirte cx negative as per ID -Right AKA stump cellulitis- R/O fluid collection, check CT extremity-Superficial cx: Pseudomonas (R-Merrem), and CoNS-ESR/CRP sig nificant elevated -CT (+) [id number] loculated fluid maria fernanda ection; S/P diagnostic aspiration by IR 05/24, GS (-) , CX (-)-on Zosyn to complete 7 days-completed -as per ID -Patient seen by vascular surgery Dr. Bowling-no s urgical intervention at this time wait for cultures and continue antibiotics. -Left residual limb wounds are almost completely healed -Nutritional indices improved -Hemoglobin better-hemoglobin 9.2. On Epogen 3 t imes weekly -Renal following kidney function -Continue current medications -Continue brain injury and amputation IRF. Atilio carrillo progress Patient Progress-GAIT- IN SBA AMBULATED 200FT 75 FT USING RW WC FOLLOW USING HOP TO GAIT, VC TO EDUCATE Pt NOT TO SWING PAST WALKER FRONT BAR FOR SAFETY REASONS Pt ACKNOWLEDGED UNDERSTANDING. PM R Please see team note. Plan and goals discussed with the patient. I agree with the teams finding ELOS- [05/31] DC-Home with family-HH DME-HAS WC, TT 35 min>50% with discussing with patie nt about progress, discharge plans for tomorrow, open wounds to right AKA improving, co mpleted IV antibiotic, rehab plan of care, goals, therapies, progress, needs, and medical issues, examination. MAR and EMR reviewed. All Questions answered. Orders: Procedure Date/time Status ST SPEECH/LANG/VOICE TX 05/30 UNK Complete OT EXERCISE 15MIN 05/30 UNK Complete OT ADL 05/30 UNK Complete Plan discussed with: patient, nurse, interdisc c are team Rehab attestation: Face to face exam completed. Treatment plan disc ussed with patient. Meets continued stay criteria. Agree with interdiscipl inary treatment plan. Patient seen and examined by me personally. at 1546 [facility] #:[id number] END OF REPORT 2020-05-29 23:28:00-00:00 [facility] REPORT#:[id number] REPORT STATUS: Signed DATE:05/29/20 TIME: 2327 PATIENT: DARIEN GROSSMAN UNIT #: [id number] ROOM/BED: [place] [address] : 45 AGE: 74 SEX: M ATTEND: Rosa Curtis MD ADM AUTHOR: Javier Meek NP * ALL edits or amendments must be made on the C-Note/Above All Software document * Subjective Chief Complaint: Right AKA Possible depression Review of Systems Constitutional: Denies: chills, fever. ENT: Denies: earache, nasal congestion, sore throat. Respiratory: Denies: hemoptysis, parox no cturnal dyspnea, pleurisy, pleuritic pain, pneumonia , SOB, wheezing. Cardiovascular: Denies: chest pain, palpitations. GI: Denies: abdominal pain, nausea, vomiting. : Denies: flank pain, frequency, hematuria. Musculoskeletal: Denies: extremity pain, extr emity swelling, joint pain, lumbar pain, neck pain. Neuro: Denies: change in LOC, confusion, dizziness, foc al weakness, gait problem, headache, lightheaded, numbness, seizure, slurre d speech, spinning sensation, syncope, unable to speak, vision change. Psych: Denies: agitation, anxiety, auditory hallucinati on, change in mental status, confusion, delusional, depre ssion, homicidal ideation, hostile, insomnia, stress , suicidal ideation, visual hallucination. All systems rev neg: except as marked Objective General VS/I O: Laboratory Tests 05/29 05/29 05/27 2305 0500 0400 Chemistry Sodium (134 - 147 mEq/L) 137 138 Potassium (3.4 - 5.0 mEq/L) 3.9 3.7 Chloride (100 - 108 mEq/L) 99 L 103 Carbon Dioxide (21 - 33 mEq/l) 28 27 Anion Gap (0 - 20) 13 12 BUN (7 - 18 mg/dL) 11 41 H Creatinine (0.6 - 1.3 mg/dL) 4.5 H 4.4 H Glomerular Filtr Rate (70 - 80) 12.9 L 13.2 L Glucose (70 - 110 mg/dL) 77 84 POC Glucose (70 - 110 MG/DL) 95 Calcium (8.0 - 10.5 mg/dL) 8.8 9.3 Home Medications: Medication Dose/Rte/Freq Days Qty Entered Last Max Daily Dose Reviewed busPIRone (BUSPAR) 10 MG PO BEDTIME 05/13/20 Strength: 10 MG TAB 1443 2255 HYDROcodone/APAP 1 TAB PO 05/13/20 05/19/20 (NORCO 10/325) Q6H PRN PRN PAIN 1443 2255 Strength: 10 MG-325 MG TAB ZOLPIDEM (AMBIEN) 10 MG PO 05/13/20 05/19/20 Strength: 10 MG TAB BEDTIME PRN 1444 2255 INSOMNIA GABAPENTIN (NEURONTIN) 300 MG PO BEDTIME 05/19/20 Strength: 300 MG CAP 1445 2255 DESVENLAFAXINE ER 25 MG PO DAILY 05/13/2005/19 (PRISTIQ) 1446 2255 Strength: 50 MG TAB.SR.24H traZODone (DESYREL) 150 MG PO BEDTIME 05/13/20 05/19/20 Strength: 150 MG TAB 1446 2255 FUROSEMIDE (LASIX) 40 MG PO DAILY 05/13/2010/01 Strength: 40 MG TAB 1447 2255 METOPROLOL TARTRATE 25 MG PO BID 05/13/2005/19 (LOPRESSOR) 1448 2255 Strength: 25 MG TAB levETIRAcetam (KEPPRA) 500 MG PO Q12HR 10 05/1405/19/20 Strength: 500 MG TAB 1333 2255 Current Hospital Medications: Anti-Infective Agents Sig/Tatum Start time Last Medication Dose Route Stop Time Status Admin Piperacillin Sod/ 3.375 GM Q12H 05/23 1300 AC 0 05/29 Tazobactam Sod IV 05/30 1259 1259 (ZOSYN 3.375GM) Sodium Chloride 100 ML (SODIUM CHLORIDE 0.9% 100 ML) Blood Derivatives Sig/Tatum Start time Last Medication Dose Route Stop Time Status Admin Albumin Human 12.5 GM ASDIR PRN 05/23 1415 AC (ALBUMINAR-25%) IV 06/23 1413 Blood Formation,Coagulation Sig/Tatum Start time Last Medication Dose Route Stop Time Status Admin Clopidogrel Bisulfate 75 MG DAILY 05/20 899 A C 05/29 (Plavix) PO 06/19 1300 0954 Heparin Sodium 5,000 UNIT Q8H 05/19 2200 AC (HEPARIN 5000 UNITS/ SUBQ 06/19 1300 2114 ML) Epoetin Donny-epbx 4,000 UNIT TuThSa@2100 05/19 2099 AC 05/28 (RETACRIT) SUBQ 06/19 1300 2122 Cardiovascular Drugs Sig/Tatum Start time Last Medication Dose Route Stop Time Status Admin Lidocaine HCl 0.5 ML ASDIR PRN 05/23 1415 CKD (LIDOCAINE HCL/PF) I-DERMAL 06/23 141 Hydralazine HCl 10 MG Q6H PRN PRN 05/20 0845 AC (APRESOLINE) PO 06/19 0844 Metoprolol Tartrate 25 MG BID 05/19 2099 AC (LOPRESSOR) PO 06/19 1300 2114 Central Nervous System Agents Sig/Tatum Start time Last Medication Dose Route Stop Time Status Admin Hydrocodone Bitart/ 1 TAB Q4H PRN PRN 05/24 141 5 AC 05/29 Acetaminophen PO 06/10 1200 0927 (NORCO 7.5/325 TABLET) Sertraline HCl 25 MG BEDTIME 05/23 2099 AC 05/12 8 (ZOLOFT) PO 06/22 Amitriptyline HCl 10 MG BEDTIME 05/20 2100 AC 0 05/29 (ELAVIL) PO 06/19 Aspirin 81 MG DAILY 05/20 899 AC 05/29 (ASPIRIN) PO 06/19 1300 0927 Venlafaxine HCl 75 MG DAILY 05/20 899 AC 05/29 (Effexor XR 37.5 mg) PO 06/19 1300 0927 Acetaminophen 650 MG Q6H PRN PRN 05/20 0845 AC (TYLENOL) PO 06/19 0844 Gabapentin 300 MG BEDTIME 05/19 2099 AC 05/29 (NEURONTIN) PO 06/19 1300 2113 Trazodone HCl 150 MG BEDTIME 05/19 2099 AC 05/12 8 (DESYREL) PO 06/19 1300 2113 Zolpidem Tartrate 5 MG BEDTIME PRN PRN 05/19 20 00 AC 05/29 (AMBIEN) PO 06/19 1300 2123 Electrolytic, Caloric, And Nadia Sig/Tatum Start time Last Medication Dose Route Stop Time Status Admin Mannitol 12.5 GM ASDIR PRN 05/23 1415 AC (MANNITOL 25% 12.5GM/ IV 06/23 1413 50ML) Sodium Chloride 2,000 ML ASDIR PRN 05/23 1415 A C 05/27 (SODIUM CHLORIDE IV 06/23 1413 1552 0.9%) Sodium Chloride 10 ML ASDIR PRN 05/23 1415 AC 0 05/27 (SODIUM CHLORIDE) IV 06/22 1414 1553 Sodium Chloride 250 ML ASDIR PRN 05/23 1415 AC (SODIUM CHLORIDE IV 06/22 1414 0.9%) Furosemide 40 MG DAILY 05/20 899 AC 05/29 (LASIX) PO 06/19 1300 0927 Eye, Ear, Nose And Throat (Een Sig/Tatum Start time Last Medication Dose Route Stop Time Status Admin Triamcinolone 40 MG PROCEDURE 05/20 1944 CKD Acetonide IM 06/20 1943 (KENALOG-40 INJECTION) Gastrointestinal Drugs Sig/Tatum Start time Last Medication Dose Route Stop Time Status Admin Polyethylene Glycol 17 GM DAILY 05/20 899 AC 0 05/21 (MIRALAX) PO 06/19 1300 1016 Senna 1 TAB DAILY 05/20 899 CKD 05/21 (SENOKOT) PO 06/19 1300 1015 Ondansetron HCl 4 MG TID PRN PRN 05/20 0845 AC (ZOFRAN ODT) SL 06/19 0844 Local Anesthetics (Parenteral) Sig/Tatum Start time Last Medication Dose Route Stop Time Status Admin Lidocaine 1 PATCH DAILY 05/21 899 AC 05/29 (LIDODERM) TOPICAL 06/20 858 09 Skin And Mucous Membrane Agent Sig/Tatum Start time Last Medication Dose Route Stop Time Status Admin Collagenase 1 APPLIC DAILY 05/22 899 AC 05/29 (SANTYL 2GM TOPICAL) TOPICAL 06/21 Vital Signs: Date Time Temp Pulse Resp B/P B/P Pulse O2 O2 F low FiO2 Mean Ox Delivery Rate 05/29 1902 37.1 69 20 143/67 92.5 97 Room air 05/29 1642 36.8 61 12 138/60 86.1 97 05/29 0946 36.8 69 16 117/63 80.6 96 Vital Signs Date Temp Pulse Resp B/P B/P Mean Pulse Ox FiO2 05/29 36.8-37.1 61-69 12-20 117-143/60-67 80.6- 92.5 96-97 Last Documented: Result Date Time Pulse Ox 97 05/29 190 B/P 143/67 05/29 1901 B/P Mean 92.5 05/29 1901 O2 Delivery Room air 05/29 1901 Temp 37.1 05/29 190 Pulse 69 05/29 1902 Resp 20 05/29 1901 24 hour I O ending at 0700: 05/29 0700 05/28 1900 Intake Total 360 480 Output Total 100 Balance 260 480 Intake, Oral 360 480 Number 1 Bowel Movements Number Voids 1 Output, Urine 100 PATIENT WEIGHT: Weight (lb): 171 Weight (oz): 12.16 Weight (kg): 77.909 Physical Exam General appearance: alert, awake Neck: no JVD Cardiovascular: regular rate rhythm Respiratory: aerating well, clear to auscultatio n Abdomen: non-tender, normal bowel sounds, soft Extremities: Extremities: RT AKA Neuro/CUSTODIAN MANAGER: alert, oriented x 3 Skin: dry, normal temperature Psychiatry: depressed, normal judgement/insight Diagnosis, Assessment Plan Free Text DxA P Notes Free text DxA P notes: Assessment: 1.Mechanical fall 2.Traumatic brain injury with subdural hematoma 3. Right AKA pulmonary 2020 4. IMpaired mobility/Impaired gait 5. History of depression 6. Generalized weakness 7. Phantom pain 8. End-stage renal disease on hemodialysis 3 day s a week 9. Anemia 10. History of coronary artery disease, hyperten willy, and hyperlipidemia 05/21/20 Patient's doing well Sitting in a wheelchair Participating in therapy Family visiting at the bedside 05/22/20 Patient participating in therapy daily Reportedly patient is depressed He answered all my questions but seems to be sad May 23, 2020 No leukocytosis, anemia Continue to monitor renal function CT of the right femur without contrast: Ladbm-bye-sini amputation changes with complex soft tissue fluid collection at the stump site. There is loss of fatty medullary density at the stump site. Osteomyelit is is not excluded. Correlate with MRI. Continue wound care May 24, 2020 The patient underwent ultrasound-guided aspirati on of superficial fluid collection May 25, 2020 Patient was started on Zoloft and venlafaxine Continue psychiatric medications Supportive psychotherapy for anxiety and depress ion Status post US guided aspiration of right AKA st ump yesterday. Continue hemodialysis and wound care Monitor H H Continue working with rehab May 26, 2020 Complaining of right stump pain, neuropathy and phantom limb pain as per pain management Working with rehab, better mood Hemodialysis yesterday May 27, 2020 Reports less pain, complains of generalized weak ness Cooperating with rehab There is some descent of the wound, seen by woun d care Continue antibiotics May 27, 2020 Reports less pain, complains of generalized weak ness Cooperating with rehab There is some descent of the wound, seen by woun d care Continue antibiotics Zosyn for right stump wound /cellulitis May 28, 2020: Right AKA stump cellulitis, w wound dehiscence 05/24/20 sp aspiration culture by IR of loculated fluid c ollection On IV Zosyn per ID. Wound care as per wound care team/Dr. Shruti Molina with xeroform to dehisced sites, cover w ith foam dressing daily. -Wound VAC is being planned by wound care 05/29/20 Aspiration done on 05/24/2020 shows no growth beto s far Right stump wound improving as per nursing Dressing was just changed today side not remove Plan of care: -Continue with comprehensive inpatient rehabilit [facility] rehab team -Wound care as per Dr. Gilbert -Dialysis per nephrology team -Pain control -Fall precaution -DVT prophylaxis -GI prophylaxis -Pain control as pain management -Seizure precaution patient on Keppra -Continues present medications -Monitor labs -Plan of care discussed with the patient, galina palma'lennox nurse, and Dr. Cavazos. Electronically Signed by Javier Meek NP on 0 05/30/20 at 1232 RPT #:[id number] END OF REPORT 2020-05-29 23:28:00-00:00 [facility]) Internal Medicine Prog. Note REPORT#:[id number] REPORT STATUS: Signed DATE:05/29/20 TIME: 2327 PATIENT: AMINA,RAY UNIT #: [id number] ROOM/BED: [place] [address] : 45 AGE: 74 SEX: M ATTEND: Rosa Curtis MD ADM AUTHOR: Javier Meek MONOGRAM MAKER * ALL edits or amendments must be made on the C-Note/computer document * Javier Meek 05/29/20 2328: Subjective Chief Complaint: Right AKA Possible depression Review of Systems Constitutional: Denies: chills, fever. ENT: Denies: earache, nasal congestion, sore throat. Respiratory: Denies: hemoptysis, parox no cturnal dyspnea, pleurisy, pleuritic pain, pneumonia , SOB, wheezing. Cardiovascular: Denies: chest pain, palpitations. GI: Denies: abdominal pain, nausea, vomiting. : Denies: flank pain, frequency, hematuria. Musculoskeletal: Denies: extremity pain, extr emity swelling, joint pain, lumbar pain, neck pain. Neuro: Denies: change in LOC, confusion, dizziness, foc al weakness, gait problem, headache, lightheaded, numbness, seizure, slurre d speech, spinning sensation, syncope, unable to speak, vision change. Psych: Denies: agitation, anxiety, auditory hallucinati on, change in mental status, confusion, delusional, depre ssion, homicidal ideation, hostile, insomnia, stress , suicidal ideation, visual hallucination. All systems rev neg: except as marked Objective General VS/I O: Laboratory Tests 05/29 05/29 05/27 2305 0500 0400 Chemistry Sodium (134 - 147 mEq/L) 137 138 Potassium (3.4 - 5.0 mEq/L) 3.9 3.7 Chloride (100 - 108 mEq/L) 99 L 103 Carbon Dioxide (21 - 33 mEq/l) 28 27 Anion Gap (0 - 20) 13 12 BUN (7 - 18 mg/dL) 11 41 H Creatinine (0.6 - 1.3 mg/dL) 4.5 H 4.4 H Glomerular Filtr Rate (70 - 80) 12.9 L 13.2 L Glucose (70 - 110 mg/dL) 77 84 POC Glucose (70 - 110 MG/DL) 95 Calcium (8.0 - 10.5 mg/dL) 8.8 9.3 Home Medications: Medication Dose/Rte/Freq Days Qty Entered Last Max Daily Dose Reviewed busPIRone (BUSPAR) 10 MG PO BEDTIME 05/13/20 Strength: 10 MG TAB 1443 2255 HYDROcodone/APAP 1 TAB PO 05/13/20 05/19/20 (NORCO 10/325) Q6H PRN PRN PAIN 1443 2255 Strength: 10 MG-325 MG TAB ZOLPIDEM (AMBIEN) 10 MG PO 05/13/20 05/19/20 Strength: 10 MG TAB BEDTIME PRN 1444 2255 INSOMNIA GABAPENTIN (NEURONTIN) 300 MG PO BEDTIME 05/19/20 Strength: 300 MG CAP 1445 2255 DESVENLAFAXINE ER 25 MG PO DAILY 05/13/2005/19 (PRISTIQ) 1446 2255 Strength: 50 MG TAB.SR.24H traZODone (DESYREL) 150 MG PO BEDTIME 05/13/20 05/19/20 Strength: 150 MG TAB 1446 2255 FUROSEMIDE (LASIX) 40 MG PO DAILY 05/13/2010/01 Strength: 40 MG TAB 1447 2255 METOPROLOL TARTRATE 25 MG PO BID 05/13/2005/19 (LOPRESSOR) 1448 2255 Strength: 25 MG TAB levETIRAcetam (KEPPRA) 500 MG PO Q12HR 10 05/1405/19/20 Strength: 500 MG TAB 1333 2255 Current Hospital Medications: Anti-Infective Agents Sig/Tatum Start time Last Medication Dose Route Stop Time Status Admin Piperacillin Sod/ 3.375 GM Q12H 05/23 1300 AC 0 05/29 Tazobactam Sod IV 05/30 1259 1259 (ZOSYN 3.375GM) Sodium Chloride 100 ML (SODIUM CHLORIDE 0.9% 100 ML) Blood Derivatives Sig/Tatum Start time Last Medication Dose Route Stop Time Status Admin Albumin Human 12.5 GM ASDIR PRN 05/23 1415 AC (ALBUMINAR-25%) IV 06/23 1413 Blood Formation,Coagulation Sig/Tatum Start time Last Medication Dose Route Stop Time Status Admin Clopidogrel Bisulfate 75 MG DAILY 05/20 0900 AC 05/29 (Plavix) PO 06/19 1300 0954 Heparin Sodium 5,000 UNIT Q8H 05/19 2199 AC (HEPARIN 5000 UNITS/ SUBQ 06/19 1300 2114 ML) Epoetin Donny-epbx 4,000 UNIT TuThSa@2100 05/19 2100 AC 05/28 (RETACRIT) SUBQ 06/19 1300 2122 Cardiovascular Drugs Sig/Tatum Start time Last Medication Dose Route Stop Time Status Admin Lidocaine HCl 0.5 ML ASDIR PRN 05/23 1415 CKD (LIDOCAINE HCL/PF) I-DERMAL 06/23 141 Hydralazine HCl 10 MG Q6H PRN PRN 05/20 0845 AC (APRESOLINE) PO 06/20 0744 Metoprolol Tartrate 25 MG BID 05/19 2099 AC (LOPRESSOR) PO 06/19 1300 211 Central Nervous System Agents Sig/Tatum Start time Last Medication Dose Route Stop Time Status Admin Hydrocodone Bitart/ 1 TAB Q4H PRN PRN 05/24 141 5 AC 05/29 Acetaminophen PO 06/10 1200 0927 (NORCO 7.5/325 TABLET) Sertraline HCl 25 MG BEDTIME 05/23 2099 AC (ZOLOFT) PO 06/22 Amitriptyline HCl 10 MG BEDTIME 05/20 2099 AC 0 05/29 (ELAVIL) PO 06/19 Aspirin 81 MG DAILY 05/20 899 AC 05/29 (ASPIRIN) PO 06/19 1300 926 Venlafaxine HCl 75 MG DAILY 05/20 899 AC 05/29 (Effexor XR 37.5 mg) PO 06/19 1300 09 Acetaminophen 650 MG Q6H PRN PRN 05/20 0845 AC (TYLENOL) PO 06/19 0844 Gabapentin 300 MG BEDTIME 05/19 2099 AC 05/29 (NEURONTIN) PO 06/19 1300 211 Trazodone HCl 150 MG BEDTIME 05/19 2099 AC 05/12 8 (DESYREL) PO 06/19 1300 211 Zolpidem Tartrate 5 MG BEDTIME PRN PRN 05/19 20 00 AC 05/29 (AMBIEN) PO 06/19 1300 2123 Electrolytic, Caloric, And Nadia Sig/Tatum Start time Last Medication Dose Route Stop Time Status Admin Mannitol 12.5 GM ASDIR PRN 05/23 1415 AC (MANNITOL 25% 12.5GM/ IV 06/23 1413 50ML) Sodium Chloride 2,000 ML ASDIR PRN 05/23 1415 A C 05/27 (SODIUM CHLORIDE IV 06/23 1413 1552 0.9%) Sodium Chloride 10 ML ASDIR PRN 05/23 1415 AC 0 05/27 (SODIUM CHLORIDE) IV 06/22 1414 1553 Sodium Chloride 250 ML ASDIR PRN 05/23 1415 AC (SODIUM CHLORIDE IV 06/22 1414 0.9%) Furosemide 40 MG DAILY 05/20 899 AC 05/29 (LASIX) PO 06/19 1300 0927 Eye, Ear, Nose And Throat (Een Sig/Tatum Start time Last Medication Dose Route Stop Time Status Admin Triamcinolone 40 MG PROCEDURE 05/20 1944 CKD Acetonide IM 06/20 1943 (KENALOG-40 INJECTION) Gastrointestinal Drugs Sig/Tatum Start time Last Medication Dose Route Stop Time Status Admin Polyethylene Glycol 17 GM DAILY 05/20 899 AC 0 05/21 (MIRALAX) PO 06/19 1300 1016 Senna 1 TAB DAILY 05/20 899 CKD 05/21 (SENOKOT) PO 06/19 1300 1015 Ondansetron HCl 4 MG TID PRN PRN 05/20 0845 AC (ZOFRAN ODT) SL 06/19 0844 Local Anesthetics (Parenteral) Sig/Tatum Start time Last Medication Dose Route Stop Time Status Admin Lidocaine 1 PATCH DAILY 05/21 899 AC 05/29 (LIDODERM) TOPICAL 06/20 0859 0928 Skin And Mucous Membrane Agent Sig/Tatum Start time Last Medication Dose Route Stop Time Status Admin Collagenase 1 APPLIC DAILY 05/22 899 AC 05/29 (SANTYL 2GM TOPICAL) TOPICAL 06/21 0859 0928 Vital Signs: Date Time Temp Pulse Resp B/P B/P Pulse O2 O2 F low FiO2 Mean Ox Delivery Rate 05/29 1902 37.1 69 20 143/67 92.5 97 Room air 05/29 1642 36.8 61 12 138/60 86.1 97 05/29 0946 36.8 69 16 117/63 80.6 96 Vital Signs Date Temp Pulse Resp B/P B/P Mean Pulse Ox FiO2 05/29 36.8-37.1 61-69 12-20 117-143/60-67 80.6- 92.5 96-97 Last Documented: Result Date Time Pulse Ox 97 05/29 1901 B/P 143/67 05/29 1901 B/P Mean 92.5 05/29 1901 O2 Delivery Room air 05/29 1901 Temp 37.1 05/29 1901 Pulse 69 05/29 1901 Resp 20 05/29 1901 24 hour I O ending at 0700: 05/29 0700 05/28 1900 Intake Total 360 480 Output Total 100 Balance 260 480 Intake, Oral 360 480 Number 1 Bowel Movements Number Voids 1 Output, Urine 100 PATIENT WEIGHT: Weight (lb): 171 Weight (oz): 12.16 Weight (kg): 77.909 Physical Exam General appearance: alert, awake Neck: no JVD Cardiovascular: regular rate rhythm Respiratory: aerating well, clear to auscultatio n Abdomen: non-tender, normal bowel sounds, soft Extremities: Extremities: RT AKA Neuro/CUSTODIAN MANAGER: alert, oriented x 3 Skin: dry, normal temperature Psychiatry: depressed, normal judgement/insight Diagnosis, Assessment Plan Free Text DxA P Notes Free text DxA P notes: Assessment: 1.Mechanical fall 2.Traumatic brain injury with subdural hematoma 3. Right AKA pulmonary 2020 4. IMpaired mobility/Impaired gait 5. History of depression 6. Generalized weakness 7. Phantom pain 8. End-stage renal disease on hemodialysis 3 day s a week 9. Anemia 10. History of coronary artery disease, hyperten willy, and hyperlipidemia 05/21/20 Patient's doing well Sitting in a wheelchair Participating in therapy Family visiting at the bedside 05/22/20 Patient participating in therapy daily Reportedly patient is depressed He answered all my questions but seems to be sad May 23, 2020 No leukocytosis, anemia Continue to monitor renal function CT of the right femur without contrast: Vjcpj-vvv-jcrf amputation changes with complex soft tissue fluid collection at the stump site. There is loss of fatty medullary density at the stump site. Osteomyelit is is not excluded. Correlate with MRI. Continue wound care May 24, 2020 The patient underwent ultrasound-guided aspirati on of superficial fluid collection May 25, 2020 Patient was started on Zoloft and venlafaxine Continue psychiatric medications Supportive psychotherapy for anxiety and depress ion Status post US guided aspiration of right AKA st ump yesterday. Continue hemodialysis and wound care Monitor H H Continue working with rehab May 26, 2020 Complaining of right stump pain, neuropathy and phantom limb pain as per pain management Working with rehab, better mood Hemodialysis yesterday May 27, 2020 Reports less pain, complains of generalized weak ness Cooperating with rehab There is some descent of the wound, seen by arcenio haque Continue antibiotics May 27, 2020 Reports less pain, complains of generalized weak ness Cooperating with rehab There is some descent of the wound, seen by arcenio haque Continue antibiotics Zosyn for right stump wound /cellulitis May 28, 2020: Right AKA stump cellulitis, w wound dehiscence 05/24/20 sp aspiration culture by IR of loculated fluid c ollection On IV Zosyn per ID. Wound care as per wound care team/Dr. Shruti Molina with xeroform to dehisced sites, cover w ith foam dressing daily. -Wound VAC is being planned by wound care 05/29/20 Aspiration done on 05/24/2020 shows no growth beto s far Right stump wound improving as per nursing Dressing was just changed today side not remove Plan of care: -Continue with comprehensive inpatient rehabilit [facility] rehab team -Wound care as per Dr. Gilbert -Dialysis per nephrology team -Pain control -Fall precaution -DVT prophylaxis -GI prophylaxis -Pain control as pain management -Seizure precaution patient on Keppra -Continues present medications -Monitor labs -Plan of care discussed with the patient, galina marcano nurse, and Dr. Cavazos. Danny Cavazos 06/02/20 3803: Attestations Physician Attestation Agree w/findings plan: Patient seen and examined on 05/29/2020. I agree with the findings and plan as documented by JOSE Meek. Plan of care coordinat ed with JOSE Meek. Pertinent labs, Imaging, and store sales consultant evaluations review ed. 74-year-old male was admitted to inpatient rehab for comprehensive rehabilitation. Aspiration done on 05/24/2020 hillary ws no growth thus far. Right stump wound is improving as per nursing and dressing was just changed today. We will continue with antibiotics, wound care as pe cindy Gilbert, hemodialysis, comprehensive inpatient reha bilitation was per rehab team, fall precautions, DVT prophylaxis, GI prophylaxis, pain control as jenny n management, seizure precautions with Keppra, and present medications . We will continue to monitor his labs. Electronically Signed by Javier Meek NP on 0 05/30/20 at 1232 RPT #:[id number] END OF REPORT 2020-05-29 23:28:00-00:00 [facility] Internal Medicine Prog. Note REPORT#:[id number] REPORT STATUS: Signed DATE:05/29/20 TIME: 2327 PATIENT: DARIEN GROSSMAN UNIT #: [id number] ROOM/BED: [place] [address] : 45 AGE: 74 SEX: M ATTEND: Rosa Curtis MD ADM AUTHOR: Javier Meek NP * ALL edits or amendments must be made on the C-Note/computer document * Javier Meek 05/29/202327: Subjective Chief Complaint: Right AKA Possible depression Review of Systems Constitutional: Denies: chills, fever. ENT: Denies: earache, nasal congestion, sore throat. Respiratory: Denies: hemoptysis, parox no cturnal dyspnea, pleurisy, pleuritic pain, pneumonia , SOB, wheezing. Cardiovascular: Denies: chest pain, palpitations. GI: Denies: abdominal pain, nausea, vomiting. : Denies: flank pain, frequency, hematuria. Musculoskeletal: Denies: extremity pain, extr emity swelling, joint pain, lumbar pain, neck pain. Neuro: Denies: change in LOC, confusion, dizziness, foc al weakness, gait problem, headache, lightheaded, numbness, seizure, slurre d speech, spinning sensation, syncope, unable to speak, vision change. Psych: Denies: agitation, anxiety, auditory hallucinati on, change in mental status, confusion, delusional, depre ssion, homicidal ideation, hostile, insomnia, stress , suicidal ideation, visual hallucination. All systems rev neg: except as marked Objective General VS/I O: Laboratory Tests 05/29 05/29 05/27 2305 0500 0400 Chemistry Sodium (134 - 147 mEq/L) 137 138 Potassium (3.4 - 5.0 mEq/L) 3.9 3.7 Chloride (100 - 108 mEq/L) 99 L 103 Carbon Dioxide (21 - 33 mEq/l) 28 27 Anion Gap (0 - 20) 13 12 BUN (7 - 18 mg/dL) 11 41 H Creatinine (0.6 - 1.3 mg/dL) 4.5 H 4.4 H Glomerular Filtr Rate (70 - 80) 12.9 L 13.2 L Glucose (70 - 110 mg/dL) 77 84 POC Glucose (70 - 110 MG/DL) 95 Calcium (8.0 - 10.5 mg/dL) 8.8 9.3 Home Medications: Medication Dose/Rte/Freq Days Qty Entered Last Max Daily Dose Reviewed busPIRone (BUSPAR) 10 MG PO BEDTIME 05/13/20 Strength: 10 MG TAB 1443 2255 HYDROcodone/APAP 1 TAB PO 05/13/20 05/19/20 (NORCO 10/325) Q6H PRN PRN PAIN 1443 2255 Strength: 10 MG-325 MG TAB ZOLPIDEM (AMBIEN) 10 MG PO 05/13/20 05/19/20 Strength: 10 MG TAB BEDTIME PRN 1444 2255 INSOMNIA GABAPENTIN (NEURONTIN) 300 MG PO BEDTIME 05/19/20 Strength: 300 MG CAP 1445 2255 DESVENLAFAXINE ER 25 MG PO DAILY 05/13/2005/19 (PRISTIQ) 1446 2255 Strength: 50 MG TAB.SR.24H traZODone (DESYREL) 150 MG PO BEDTIME 05/13/20 05/19/20 Strength: 150 MG TAB 1446 2255 FUROSEMIDE (LASIX) 40 MG PO DAILY 05/13/2010/01 Strength: 40 MG TAB 1447 2255 METOPROLOL TARTRATE 25 MG PO BID 05/13/2010/01 (LOPRESSOR) 1448 2255 Strength: 25 MG TAB levETIRAcetam (KEPPRA) 500 MG PO Q12HR 10 05/1405/19/20 Strength: 500 MG TAB 1333 2255 Current Hospital Medications: Anti-Infective Agents Sig/Tatum Start time Last Medication Dose Route Stop Time Status Admin Piperacillin Sod/ 3.375 GM Q12H 05/23 1300 AC 0 05/29 Tazobactam Sod IV 05/30 1259 1259 (ZOSYN 3.375GM) Sodium Chloride 100 ML (SODIUM CHLORIDE 0.9% 100 ML) Blood Derivatives Sig/Tatum Start time Last Medication Dose Route Stop Time Status Admin Albumin Human 12.5 GM ASDIR PRN 05/23 1415 AC (ALBUMINAR-25%) IV 06/23 1413 Blood Formation,Coagulation Sig/Tatum Start time Last Medication Dose Route Stop Time Status Admin Clopidogrel Bisulfate 75 MG DAILY 05/20 899 AC 05/29 (Plavix) PO 06/19 1300 0954 Heparin Sodium 5,000 UNIT Q8H 05/19 2200 AC (HEPARIN 5000 UNITS/ SUBQ 06/19 1300 2114 ML) Epoetin Donny-epbx 4,000 UNIT TuThSa@2100 05/19 2099 AC 05/28 (RETACRIT) SUBQ 06/19 1300 2122 Cardiovascular Drugs Sig/Tatum Start time Last Medication Dose Route Stop Time Status Admin Lidocaine HCl 0.5 ML ASDIR PRN 05/23 1415 CKD (LIDOCAINE HCL/PF) I-DERMAL 06/23 1413 Hydralazine HCl 10 MG Q6H PRN PRN 05/20 0845 AC (APRESOLINE) PO 06/19 0844 Metoprolol Tartrate 25 MG BID 05/19 2099 AC (LOPRESSOR) PO 06/19 1300 2114 Central Nervous System Agents Sig/Tatum Start time Last Medication Dose Route Stop Time Status Admin Hydrocodone Bitart/ 1 TAB Q4H PRN PRN 05/24 141 5 AC 05/29 Acetaminophen PO 06/10 1200 0927 (NORCO 7.5/325 TABLET) Sertraline HCl 25 MG BEDTIME 05/23 2099 AC 05/12 8 (ZOLOFT) PO 06/22 Amitriptyline HCl 10 MG BEDTIME 05/20 2099 AC 0 05/29 (ELAVIL) PO 06/19 Aspirin 81 MG DAILY 05/20 899 AC 05/29 (ASPIRIN) PO 06/19 1300 0927 Venlafaxine HCl 75 MG DAILY 05/20 899 AC 05/29 (Effexor XR 37.5 mg) PO 06/19 1300 0927 Acetaminophen 650 MG Q6H PRN PRN 05/20 0845 AC (TYLENOL) PO 06/19 0844 Gabapentin 300 MG BEDTIME 05/19 2099 AC 05/29 (NEURONTIN) PO 06/19 1300 2113 Trazodone HCl 150 MG BEDTIME 05/19 2099 AC (DESYREL) PO 06/19 1300 2113 Zolpidem Tartrate 5 MG BEDTIME PRN PRN 05/19 20 00 AC 05/29 (AMBIEN) PO 06/19 1300 2123 Electrolytic, Caloric, And Nadia Sig/Tatum Start time Last Medication Dose Route Stop Time Status Admin Mannitol 12.5 GM ASDIR PRN 05/23 1415 AC (MANNITOL 25% 12.5GM/ IV 06/23 1413 50ML) Sodium Chloride 2,000 ML ASDIR PRN 05/23 1415 A C 05/27 (SODIUM CHLORIDE IV 06/23 1413 1552 0.9%) Sodium Chloride 10 ML ASDIR PRN 05/23 1415 AC 0 05/27 (SODIUM CHLORIDE) IV 06/22 1414 1553 Sodium Chloride 250 ML ASDIR PRN 05/23 1415 AC (SODIUM CHLORIDE IV 06/22 1414 0.9%) Furosemide 40 MG DAILY 05/20 899 AC 05/29 (LASIX) PO 06/19 1300 0927 Eye, Ear, Nose And Throat (Een Sig/Tatum Start time Last Medication Dose Route Stop Time Status Admin Triamcinolone 40 MG PROCEDURE 05/20 1944 CKD Acetonide IM 06/20 1943 (KENALOG-40 INJECTION) Gastrointestinal Drugs Sig/Tatum Start time Last Medication Dose Route Stop Time Status Admin Polyethylene Glycol 17 GM DAILY 05/20 899 AC 0 05/21 (MIRALAX) PO 06/19 1300 1016 Senna 1 TAB DAILY 05/20 899 CKD 05/21 (SENOKOT) PO 06/19 1300 1015 Ondansetron HCl 4 MG TID PRN PRN 05/20 0845 AC (ZOFRAN ODT) SL 06/19 0844 Local Anesthetics (Parenteral) Sig/Tatum Start time Last Medication Dose Route Stop Time Status Admin Lidocaine 1 PATCH DAILY 05/21 899 AC 05/29 (LIDODERM) TOPICAL 06/20 858 09 Skin And Mucous Membrane Agent Sig/Tatum Start time Last Medication Dose Route Stop Time Status Admin Collagenase 1 APPLIC DAILY 05/22 899 AC 05/29 (SANTYL 2GM TOPICAL) TOPICAL 06/21 858 09 Vital Signs: Date Time Temp Pulse Resp B/P B/P Pulse O2 O2 F low FiO2 Mean Ox Delivery Rate 05/29 1902 37.1 69 20 143/67 92.5 97 Room air 05/29 1642 36.8 61 12 138/60 86.1 97 05/29 0946 36.8 69 16 117/63 80.6 96 Vital Signs Date Temp Pulse Resp B/P B/P Mean Pulse Ox FiO2 05/29 36.8-37.1 61-69 12-20 117-143/60-67 80.6- 92.5 96-97 Last Documented: Result Date Time Pulse Ox 97 05/29 190 B/P 143/67 05/29 190 B/P Mean 92.5 05/29 1902 O2 Delivery Room air 05/29 190 Temp 37.1 05/29 190 Pulse 69 05/29 1902 Resp 20 05/29 190 24 hour I O ending at 0700: 05/29 0700 05/28 1900 Intake Total 360 480 Output Total 100 Balance 260 480 Intake, Oral 360 480 Number 1 Bowel Movements Number Voids 1 Output, Urine 100 PATIENT WEIGHT: Weight (lb): 171 Weight (oz): 12.16 Weight (kg): 77.909 Physical Exam General appearance: alert, awake Neck: no JVD Cardiovascular: regular rate rhythm Respiratory: aerating well, clear to auscultatio n Abdomen: non-tender, normal bowel sounds, soft Extremities: Extremities: RT AKA Neuro/CUSTODIAN MANAGER: alert, oriented x 3 Skin: dry, normal temperature Psychiatry: depressed, normal judgement/insight Diagnosis, Assessment Plan Free Text DxA P Notes Free text DxA P notes: Assessment: 1.Mechanical fall 2.Traumatic brain injury with subdural hematoma 3. Right AKA pulmonary 2020 4. IMpaired mobility/Impaired gait 5. History of depression 6. Generalized weakness 7. Phantom pain 8. End-stage renal disease on hemodialysis 3 day s a week 9. Anemia 10. History of coronary artery disease, hyperten willy, and hyperlipidemia 05/21/20 Patient's doing well Sitting in a wheelchair Participating in therapy Family visiting at the bedside 05/22/20 Patient participating in therapy daily Reportedly patient is depressed He answered all my questions but seems to be sad May 23, 2020 No leukocytosis, anemia Continue to monitor renal function CT of the right femur without contrast: [id number] amputation changes with complex soft tissue fluid collection at the stump site. There is loss of fatty medullary density at the stump site. Osteomyelit is is not excluded. Correlate with MRI. Continue wound care May 24, 2020 The patient underwent ultrasound-guided aspirati on of superficial fluid collection May 25, 2020 Patient was started on Zoloft and venlafaxine Continue psychiatric medications Supportive psychotherapy for anxiety and depress ion Status post US guided aspiration of right AKA st ump yesterday. Continue hemodialysis and wound care Monitor H H Continue working with rehab May 26, 2020 Complaining of right stump pain, neuropathy and phantom limb pain as per pain management Working with rehab, better mood Hemodialysis yesterday May 27, 2020 Reports less pain, complains of generalized weak ness Cooperating with rehab There is some descent of the wound, seen by arcenio d garland Continue antibiotics May 27, 2020 Reports less pain, complains of generalized weak ness Cooperating with rehab There is some descent of the wound, seen by arcenio haque Continue antibiotics Zosyn for right stump wound /cellulitis May 28, 2020: Right AKA stump cellulitis, w wound dehiscence 05/24/20 sp aspiration culture by IR of loculated fluid c ollection On IV Zosyn per ID. Wound care as per wound care team/Dr. Shruti Molina with xeroform to dehisced sites, cover w ith foam dressing daily. -Wound VAC is being planned by wound care 05/29/20 Aspiration done on 05/24/2020 shows no growth beto s far Right stump wound improving as per nursing Dressing was just changed today side not remove Plan of care: -Continue with comprehensive inpatient rehabilit [facility] rehab team -Wound care as per Dr. Gilbert -Dialysis per nephrology team -Pain control -Fall precaution -DVT prophylaxis -GI prophylaxis -Pain control as pain management -Seizure precaution patient on Keppra -Continues present medications -Monitor labs -Plan of care discussed with the patient, galina marcano nurse, and Dr. Cavazos. Danny Cavazos 06/02/20 0385: Attestations Physician Attestation Agree w/findings plan: Patient seen and examined on 05/29/2020. I agree with the findings and plan as documented by JOSE Meek. Plan of care coordinat ed with JOSE Meek. Pertinent labs, Imaging, and store sales consultant evaluations review ed. 74-year-old male was admitted to inpatient rehab for comprehensive rehabilitation. Aspiration done on 05/24/2020 hillary ws no growth thus far. Right stump wound is improving as per nursing and dressing was just changed today. We will continue with antibiotics, wound care as mohan Gilbert, hemodialysis, comprehensive inpatient reha bilitation was per rehab team, fall precautions, DVT prophylaxis, GI prophylaxis, pain control as jenny n management, seizure precautions with Keppra, and present medications . We will continue to monitor his labs. Electronically Signed by Javier Meek MONOGRAM MAKER on 0 05/30/20 at 1232 Electronically Signed by Danny Keith MD o n 06/02/20 at 3306 RPT #:[id number] END OF REPORT 2020-05-29 13:20:00-00:00 [facility] Nephrology Progress Note REPORT#:[id number] REPORT STATUS: Signed DATE:05/29/20 TIME: 1320 PATIENT: DARIEN GROSSMAN UNIT #: [id number] ROOM/BED: [place] [address] : 45 AGE: 74 SEX: M ATTEND: Sekou Curtis MD ADM AUTHOR: Jenny Banegas * ALL edits or amendments must be made on the C-Note/computer document * Subjective Chief Complaint: Patient seen and examined. R eports feeling well. Had a long discussion regarding dialysis and options related to treatment. Review of Systems All systems rev neg: except as marked Objective General VS/I O: Vital Signs: Date Time Temp Pulse Resp B/P B/P Pulse O2 O2 Flow FiO2 Mean Ox Delivery Rate 05/29 0946 98.2 69 16 117/63 80.6 96 05/28 2230 97.5 59 18 144/64 90.3 97 05/28 1923 98.4 64 17 119/71 87.0 96 05/28 1647 99.1 63 17 153/71 98.4 98 24 hour I O ending at 0700: 05/29 0700 05/28 1900 Intake Total 360 480 Output Total 100 Balance 260 480 Intake, Oral 360 480 Number 1 Bowel Movements Number Voids 1 Output, Urine 100 PATIENT WEIGHT: Weight (lb): 171 Weight (oz): 12.16 Weight (kg): 77.909 Medications Active Meds + DC'd Last 24 Hrs Hydrocodone Bitart/Acetaminophen 1 TAB Q4H PRN P RN PO Sertraline HCl 25 MG BEDTIME PO Albumin Human 12.5 GM ASDIR PRN IV Lidocaine HCl 0.5 ML ASDIR PRN I-DERMAL (CKD) Mannitol 12.5 GM ASDIR PRN IV Sodium Chloride 2,000 ML ASDIR PRN IV Sodium Chloride 10 ML ASDIR PRN IV Sodium Chloride 250 ML ASDIR PRN IV Piperacillin Sod/Tazobactam Sod 3.375 GM Q12H IV Sodium Chloride 100 ML Collagenase 1 APPLIC DAILY TOPICAL Lidocaine 1 PATCH DAILY TOPICAL Amitriptyline HCl 10 MG BEDTIME PO Triamcinolone Acetonide 40 MG PROCEDURE IM (CKD) Aspirin 81 MG DAILY PO Clopidogrel Bisulfate 75 MG DAILY PO Furosemide 40 MG DAILY PO Polyethylene Glycol 17 GM DAILY PO Senna 1 TAB DAILY PO (CKD) Venlafaxine HCl 75 MG DAILY PO Acetaminophen 650 MG Q6H PRN PRN PO Hydralazine HCl 10 MG Q6H PRN PRN PO Ondansetron HCl 4 MG TID PRN PRN SL Heparin Sodium 5,000 UNIT Q8H SUBQ Epoetin Donny-epbx 4,000 UNIT TuThSa@2100 SUBQ Gabapentin 300 MG BEDTIME PO Metoprolol Tartrate 25 MG BID PO Trazodone HCl 150 MG BEDTIME PO Zolpidem Tartrate 5 MG BEDTIME PRN PRN PO Physical Exam General appearance: alert, awake, oriented Head/eyes: atraumatic, normocephalic Cardiovascular: regular rate and rhythm, pedal p ulses present Respiratory: clear to auscultation, normal breat h sounds Abdomen: normal bowel sounds, soft Extremities: no edema, Rt AKA Results Findings/Data: Laboratory Tests 05/29 0500 Chemistry Sodium (134 - 147 mEq/L) 137 Potassium (3.4 - 5.0 mEq/L) 3.9 Chloride (100 - 108 mEq/L) 99 L Carbon Dioxide (21 - 33 mEq/l) 28 Anion Gap (0 - 20) 13 BUN (7 - 18 mg/dL) 11 Creatinine (0.6 - 1.3 mg/dL) 4.5 H Glomerular Filtr Rate (70 - 80) 12.9 L Glucose (70 - 110 mg/dL) 77 Calcium (8.0 - 10.5 mg/dL) 8.8 Diagnosis, Assessment Plan Hospital course to date: 1. ESRD 2. RT AKA stump infection 3. Hypertension 4. Status post fall and acute SDH 5. Anemia of chronic kidney disease 6. Coronary artery disease Plan -HD MWF. HD in am -Blood pressure currently stable -Renal diet -Hemoglobin better. On Epogen 3 times weekly -Phos has been stable. -Rehab f/u. Free Text A P: 1. ESRD 2. AVF infiltration 3. Hypertension 4. Status post fall and acute SDH 5. Anemia of chronic kidney disease 6. Coronary artery disease Plan -HD MWF. Next treatment tomorrow. -Blood pressure currently stable -Renal diet -Hemoglobin better. On Epogen 3 times weekly -Phos has been stable. -Psych f/u. This plan of care was discussed with Dr Sriram min. at 1322 RPT #:[id number] END OF REPORT 2020-05-29 13:20:00-00:00 [facility] REPORT#:[id number] REPORT STATUS: Signed DATE:05/29/20 TIME: 1320 PATIENT: DARIEN GROSSMAN UNIT #: [id number] ROOM/BED: [place] [address] : 45 AGE: 74 SEX: M ATTEND: Rosa Curtis MD ADM AUTHOR: Jenny Banegas * ALL edits or amendments must be made on the el [employer]/computer document * Jenny Banegas 05/29/20 1320: Subjective Chief Complaint: Patient seen and examined. R eports feeling well. Had a long discussion regarding dialysis and options related to treatment. Review of Systems All systems rev neg: except as marked Objective General VS/I O: Vital Signs: Date Time Temp Pulse Resp B/P B/P Pulse O2 O2 F low FiO2 Mean Ox Delivery Rate 05/29 0946 98.2 69 16 117/63 80.6 96 05/28 2230 97.5 59 18 144/64 90.3 97 05/28 1923 98.4 64 17 119/71 87.0 96 05/28 1647 99.1 63 17 153/71 98.4 98 24 hour I O ending at 0700: 05/29 0700 05/28 1900 Intake Total 360 480 Output Total 100 Balance 260 480 Intake, Oral 360 480 Number 1 Bowel Movements Number Voids 1 Output, Urine 100 PATIENT WEIGHT: Weight (lb): 171 Weight (oz): 12.16 Weight (kg): 77.909 Medications Active Meds + DC'd Last 24 Hrs Hydrocodone Bitart/Acetaminophen 1 TAB Q4H PRN P RN PO Sertraline HCl 25 MG BEDTIME PO Albumin Human 12.5 GM ASDIR PRN IV Lidocaine HCl 0.5 ML ASDIR PRN I-DERMAL (CKD) Mannitol 12.5 GM ASDIR PRN IV Sodium Chloride 2,000 ML ASDIR PRN IV Sodium Chloride 10 ML ASDIR PRN IV Sodium Chloride 250 ML ASDIR PRN IV Piperacillin Sod/Tazobactam Sod 3.375 GM Q12H IV Sodium Chloride 100 ML Collagenase 1 APPLIC DAILY TOPICAL Lidocaine 1 PATCH DAILY TOPICAL Amitriptyline HCl 10 MG BEDTIME PO Triamcinolone Acetonide 40 MG PROCEDURE IM (CKD) Aspirin 81 MG DAILY PO Clopidogrel Bisulfate 75 MG DAILY PO Furosemide 40 MG DAILY PO Polyethylene Glycol 17 GM DAILY PO Senna 1 TAB DAILY PO (CKD) Venlafaxine HCl 75 MG DAILY PO Acetaminophen 650 MG Q6H PRN PRN PO Hydralazine HCl 10 MG Q6H PRN PRN PO Ondansetron HCl 4 MG TID PRN PRN SL Heparin Sodium 5,000 UNIT Q8H SUBQ Epoetin Donny-epbx 4,000 UNIT TuThSa@2100 SUBQ Gabapentin 300 MG BEDTIME PO Metoprolol Tartrate 25 MG BID PO Trazodone HCl 150 MG BEDTIME PO Zolpidem Tartrate 5 MG BEDTIME PRN PRN PO Physical Exam General appearance: alert, awake, oriented Head/eyes: atraumatic, normocephalic Cardiovascular: regular rate and rhythm, pedal p ulses present Respiratory: clear to auscultation, normal breat h sounds Abdomen: normal bowel sounds, soft Extremities: no edema, Rt AKA Results Findings/Data: Laboratory Tests 05/29 0500 Chemistry Sodium (134 - 147 mEq/L) 137 Potassium (3.4 - 5.0 mEq/L) 3.9 Chloride (100 - 108 mEq/L) 99 L Carbon Dioxide (21 - 33 mEq/l) 28 Anion Gap (0 - 20) 13 BUN (7 - 18 mg/dL) 11 Creatinine (0.6 - 1.3 mg/dL) 4.5 H Glomerular Filtr Rate (70 - 80) 12.9 L Glucose (70 - 110 mg/dL) 77 Calcium (8.0 - 10.5 mg/dL) 8.8 Diagnosis, Assessment Plan Hospital course to date: 1. ESRD 2. RT AKA stump infection 3. Hypertension 4. Status post fall and acute SDH 5. Anemia of chronic kidney disease 6. Coronary artery disease Plan -HD MWF. HD in am -Blood pressure currently stable -Renal diet -Hemoglobin better. On Epogen 3 times weekly -Phos has been stable. -Rehab f/u. Free Text A P: 1. ESRD 2. AVF infiltration 3. Hypertension 4. Status post fall and acute SDH 5. Anemia of chronic kidney disease 6. Coronary artery disease Plan -HD MWF. Next treatment tomorrow. -Blood pressure currently stable -Renal diet -Hemoglobin better. On Epogen 3 times weekly -Phos has been stable. -Psych f/u. This plan of care was discussed with Dr Sriram min. Anders Quick 05/30/20 1550: Attestations Physician Attestation Agree w/findings plan: I have reviewed the history physical and plan with ORVILLE Rooney and have reviewed the note with her. I have also examined the patient with her and I concur with the physical findings that she has e licited and documented.. Patient seems to be interested in peritoneal mio lysis program fortunately patient has had several abdo vito surgeries which can be a problem. I explained to the patient that it is not impossible but the surgeon has to be reminded if peritoneal dialysis catheter can be placed and also if he has enough peritoneum left. I will discuss this issue with Dr. Dillon and get her opinion on this issue. at 1322 RPT #:[id number] END OF REPORT 2020-05-29 13:20:00-00:00 [facility] ([facility]) Nephrology Progress Note REPORT#:[id number] REPORT STATUS: Signed DATE:05/29/20 TIME: 1320 PATIENT: DARIEN GROSSMAN UNIT #: [id number] ROOM/BED: [place] [address] : 45 AGE: 74 SEX: M ATTEND: Rosa Curtis MD ADM AUTHOR: Jenny Banegas * ALL edits or amendments must be made on the C-Note/computer document * Jenny Banegas 05/29/20 1320: Subjective Chief Complaint: Patient seen and examined. R eports feeling well. Had a long discussion regarding dialysis and options related to treatment. Review of Systems All systems rev neg: except as marked Objective General VS/I O: Vital Signs: Date Time Temp Pulse Resp B/P B/P Pulse O2 O2 F low FiO2 Mean Ox Delivery Rate 05/29 0946 98.2 69 16 117/63 80.6 96 05/28 2230 97.5 59 18 144/64 90.3 97 05/28 1923 98.4 64 17 119/71 87.0 96 05/28 1647 99.1 63 17 153/71 98.4 98 24 hour I O ending at 0700: 05/29 0700 05/28 1900 Intake Total 360 480 Output Total 100 Balance 260 480 Intake, Oral 360 480 Number 1 Bowel Movements Number Voids 1 Output, Urine 100 PATIENT WEIGHT: Weight (lb): 171 Weight (oz): 12.16 Weight (kg): 77.909 Medications Active Meds + DC'd Last 24 Hrs Hydrocodone Bitart/Acetaminophen 1 TAB Q4H PRN P RN PO Sertraline HCl 25 MG BEDTIME PO Albumin Human 12.5 GM ASDIR PRN IV Lidocaine HCl 0.5 ML ASDIR PRN I-DERMAL (CKD) Mannitol 12.5 GM ASDIR PRN IV Sodium Chloride 2,000 ML ASDIR PRN IV Sodium Chloride 10 ML ASDIR PRN IV Sodium Chloride 250 ML ASDIR PRN IV Piperacillin Sod/Tazobactam Sod 3.375 GM Q12H IV Sodium Chloride 100 ML Collagenase 1 APPLIC DAILY TOPICAL Lidocaine 1 PATCH DAILY TOPICAL Amitriptyline HCl 10 MG BEDTIME PO Triamcinolone Acetonide 40 MG PROCEDURE IM (CKD) Aspirin 81 MG DAILY PO Clopidogrel Bisulfate 75 MG DAILY PO Furosemide 40 MG DAILY PO Polyethylene Glycol 17 GM DAILY PO Senna 1 TAB DAILY PO (CKD) Venlafaxine HCl 75 MG DAILY PO Acetaminophen 650 MG Q6H PRN PRN PO Hydralazine HCl 10 MG Q6H PRN PRN PO Ondansetron HCl 4 MG TID PRN PRN SL Heparin Sodium 5,000 UNIT Q8H SUBQ Epoetin Donny-epbx 4,000 UNIT TuThSa@2100 SUBQ Gabapentin 300 MG BEDTIME PO Metoprolol Tartrate 25 MG BID PO Trazodone HCl 150 MG BEDTIME PO Zolpidem Tartrate 5 MG BEDTIME PRN PRN PO Physical Exam General appearance: alert, awake, oriented Head/eyes: atraumatic, normocephalic Cardiovascular: regular rate and rhythm, pedal p ulses present Respiratory: clear to auscultation, normal breat h sounds Abdomen: normal bowel sounds, soft Extremities: no edema, Rt AKA Results Findings/Data: Laboratory Tests 05/29 0500 Chemistry Sodium (134 - 147 mEq/L) 137 Potassium (3.4 - 5.0 mEq/L) 3.9 Chloride (100 - 108 mEq/L) 99 L Carbon Dioxide (21 - 33 mEq/l) 28 Anion Gap (0 - 20) 13 BUN (7 - 18 mg/dL) 11 Creatinine (0.6 - 1.3 mg/dL) 4.5 H Glomerular Filtr Rate (70 - 80) 12.9 L Glucose (70 - 110 mg/dL) 77 Calcium (8.0 - 10.5 mg/dL) 8.8 Diagnosis, Assessment Plan Hospital course to date: 1. ESRD 2. RT AKA stump infection 3. Hypertension 4. Status post fall and acute SDH 5. Anemia of chronic kidney disease 6. Coronary artery disease Plan -HD MWF. HD in am -Blood pressure currently stable -Renal diet -Hemoglobin better. On Epogen 3 times weekly -Phos has been stable. -Rehab f/u. Free Text A P: 1. ESRD 2. AVF infiltration 3. Hypertension 4. Status post fall and acute SDH 5. Anemia of chronic kidney disease 6. Coronary artery disease Plan -HD MWF. Next treatment tomorrow. -Blood pressure currently stable -Renal diet -Hemoglobin better. On Epogen 3 times weekly -Phos has been stable. -Psych f/u. This plan of care was discussed with Dr Sriram min. Anders Quick 05/30/20 1550: Attestations Physician Attestation Agree w/findings plan: I have reviewed the history physical and plan with ORVILLE Rooney and have reviewed the note with her. I have also examined the patient with her and I concur with the physical findings that she has e licited and documented.. Patient seems to be interested in peritoneal mio lysis program fortunately patient has had several abdo vito surgeries which can be a problem. I explained to the patient that it is not impossible but the surgeon has to be reminded if peritoneal dialysis catheter can be placed and also if he has enough peritoneum left. I will discuss this issue with Dr. Dillon and get her opinion on this issue. at 1322 at 1550 RPT #:[id number] END OF REPORT 2020-05-29 12:17:00-00:00 [facility] ([facility]) Clinical Note REPORT#:[id number] REPORT STATUS: Signed DATE:05/29/20 TIME: 1217 PATIENT: DARIEN GROSSMAN UNIT #: [id number] ROOM/BED: [facility] : 45 AGE: 74 SEX: M ATTEND: Rosa Curtis MD ADM AUTHOR: Jonathan Sheikh NP * ALL edits or amendments must be made on the el [employer]ronic/computer document * Clinical Note Note: attmepted to see pt gone from room cont zosyn x 1 week total as planned Electronically Signed by Jonathan Sheikh NP on at 1217 RPT #:[id number] END OF REPORT 2020-05-29 12:17:00-00:00 [facility] ([facility]) Clinical Note REPORT#:[id number] REPORT STATUS: Signed DATE:05/29/20 TIME: 1217 PATIENT: DARIEN GROSSMAN UNIT #: [id number] ROOM/BED: [place] [address] : 45 AGE: 74 SEX: M ATTEND: Rosa Curtis MD ADM AUTHOR: Jonathan Sheikh NP * ALL edits or amendments must be made on the C-Note/[employer] document * Clinical Note Note: attmepted to see pt gone from room cont zosyn x 1 week total as planned Electronically Signed by Jonathan Sheikh NP on at 1217 at 2047 RPT #:[id number] END OF REPORT 2020-05-29 11:09:00-00:00 [facility] ([facility]) Pain Management Progress Note REPORT#:[id number] REPORT STATUS: Signed DATE:05/29/20 TIME: 1109 PATIENT: DARIEN GROSSMAN UNIT #: [id number] ROOM/BED: [place] [address] : 45 AGE: 74 SEX: M ATTEND: Rosa Curtis MD ADM AUTHOR: Sohail Wells * ALL edits or amendments must be made on the C-Note/[employer] document * Subjective Chief complaint: Patient seen and examined. Chart and VIJAYA reyes Patient doing well today. No new complaints Patient being seen for Left thigh pain, lateral femoral cutaneous neuralgia, Right AKA pain, Peripheral neuropathy, phantom l imb pain right lower extremity, and constipation. Patient states symptoms are manageable with use of current medications. No fever/chills, chest pain, dyspnea, no emesis, pruritus, or hallucinations. 14-point ROS undertaken unremarkable except as n oted. Objective General VS/I O: Vital Signs Date Temp Pulse Resp B/P B/P Mean Pulse Ox FiO2 05/28-05/29 36.4-37.3 59-69 16-18 117-153/63-71 80.6-98.4 96-98 Last Documented: Result Date Time Pulse Ox 96 05/29 0946 B/P 117/63 05/29 0946 B/P Mean 80.6 05/29 0846 Temp 36.8 05/29 0846 Pulse 69 05/29 0946 Resp 16 05/29 945 O2 Delivery Room air 05/24 1937 24 hour I O ending at 0700: 05/29 0700 05/28 1900 Intake Total 360 480 Output Total 100 Balance 260 480 Intake, Oral 360 480 Number 1 Bowel Movements Number Voids 1 Output, Urine 100 PATIENT WEIGHT: Weight (lb): 171 Weight (oz): 12.16 Weight (kg): 77.909 Medications: Active Meds + DC'd Last 24 Hrs Hydrocodone Bitart/Acetaminophen 1 TAB Q4H PRN P RN PO Sertraline HCl 25 MG BEDTIME PO Albumin Human 12.5 GM ASDIR PRN IV Lidocaine HCl 0.5 ML ASDIR PRN I-DERMAL (CKD) Mannitol 12.5 GM ASDIR PRN IV Sodium Chloride 2,000 ML ASDIR PRN IV Sodium Chloride 10 ML ASDIR PRN IV Sodium Chloride 250 ML ASDIR PRN IV Piperacillin Sod/Tazobactam Sod 3.375 GM Q12H IV Sodium Chloride 100 ML Collagenase 1 APPLIC DAILY TOPICAL Lidocaine 1 PATCH DAILY TOPICAL Amitriptyline HCl 10 MG BEDTIME PO Triamcinolone Acetonide 40 MG PROCEDURE IM (CKD) Aspirin 81 MG DAILY PO Clopidogrel Bisulfate 75 MG DAILY PO Furosemide 40 MG DAILY PO Polyethylene Glycol 17 GM DAILY PO Senna 1 TAB DAILY PO (CKD) Venlafaxine HCl 75 MG DAILY PO Acetaminophen 650 MG Q6H PRN PRN PO Hydralazine HCl 10 MG Q6H PRN PRN PO Ondansetron HCl 4 MG TID PRN PRN SL Heparin Sodium 5,000 UNIT Q8H SUBQ Epoetin Donny-epbx 4,000 UNIT TuThSa@2100 SUBQ Gabapentin 300 MG BEDTIME PO Metoprolol Tartrate 25 MG BID PO Trazodone HCl 150 MG BEDTIME PO Zolpidem Tartrate 5 MG BEDTIME PRN PRN PO Physical Exam General appearance: alert, awake, oriented, no a cute distress, comfortable Head/eyes: atraumatic, normocephalic, normal con junctiva/sclera ENT: normal pharynx, moist mucosal membranes Neck: full range of motion, non-tender, supple/n o meningismus Cardiovascular: regular rate rhythm Respiratory: clear to auscultation, no distress, aerating well Abdomen quadrants LLQ normal bowel sounds, LUQ normal roberto l sounds, RLQ normal bowel sounds, RUQ normal bowel sounds Extremities: moves all, no edema, pedal pulses, right AKA Neuro/CUSTODIAN MANAGER: no motor deficits, no sensory deficit s, CNII-XII grossly intact Skin: dry, intact, no rash Lymphatics: no lymphadenopathy Psychiatry: normal judgment/insight, normal mood Results Findings/data: Laboratory Tests: 05/29 0500 Chemistry Sodium (134 - 147 mEq/L) 137 Potassium (3.4 - 5.0 mEq/L) 3.9 Chloride (100 - 108 mEq/L) 99 L Carbon Dioxide (21 - 33 mEq/l) 28 Anion Gap (0 - 20) 13 BUN (7 - 18 mg/dL) 11 Creatinine (0.6 - 1.3 mg/dL) 4.5 H Glomerular Filtr Rate (70 - 80) 12.9 L Glucose (70 - 110 mg/dL) 77 Calcium (8.0 - 10.5 mg/dL) 8.8 Diagnosis, Assessment Plan Free text A P: A/P: Patient is a 74 year old male presenting with: Past medical history: Subdural hematoma, CAD, en d-stage renal disease on HD, hypertension, hyperlipidemia, septic art hritis of prosthesis of previous right TKA, depression Past surgical history: Right TKR, right AKA, cor onary stents Social history: Negative for alcohol, tobacco, i llicit drug use Family history: Not relevant Allergies: Penicillin, iodine Left thigh pain, lateral femoral cutaneous neura lgia -We offered to perform a left lateral femoral cu taneous nerve block to see if this helps with the pain. Patient declined -05/24-decrease Otis 10/325 to Otis 7.5/325 james ry 4 as needed -Lidoderm patch to left thigh daily -Otis 7.5/325 mg oral every 4 hours as needed f or pain -manageable Right AKA discomfort -05/23/2020-CT lower extremity - Above th e knee amputation changes with complex soft tissue fluid collection at the stum p site. There is loss of fatty medullary density at the stump site. Osteomyelitis is not excluded. C orrelate with MRI as clinically indicated. -IV antibiotics , appreciate infectious disease input -Pain medications as outlined above Peripheral neuropathy, phantom limb pain right l ower extremity -Gabapentin 300 mg oral at bedtime -amitriptyline 10 mg oral at bedtime -stable Antalgic/impaired gait -PT/OT -Gait training, improve endurance and strength -Transfer training -PMR following Falls -Fall precautions End-stage renal disease on hemodialysis -Nephrology following Subdural hematoma -Monitor mental status with opioids and other se dative medications Depression -monitoring Constipation -Monitor closely while patient is using opioid n arcotics -MiraLAX 17 g p.o. daily -Senna 1 tab p.o. daily -Manageable Disposition: Discharge date 05/31 All pertinent diagnostics/labs from the last 24 hours and during the course of the admission were reviewed. Plan discussed with the patient and the nurse. A ll questions were answered. Patient will be monitored for deleteriou s side effects associated with opioids and sedative medications. Me dications will be adjusted further clinical course. Risks versus benefits of opioid medications were reviewed to include, but not limited to respiratory depression, accid ental overdose, altered mental status, sudden , constipation which could result in bowel obstruction, seizures, withdrawal, dependency/addiction, risk for falls . Goals: Daily pain control. Case discussed with Dr Lofton whom agrees. 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: Total Prescriptions 28 Total Private Pay 0 Total Prescribers 4 Total Pharmacies 1 05/06/2020 1 05/06/2020 HYDROCODONE-ACETAMIN 10- 325 MG 30.0 7 [facility] SPA [id number] [facility] (1602) 0 42.86 MME Comm Ins [place] 04/20/2020 1 12/24/2019 ZOLPIDEM TARTRATE 10 MG TABLET 30.0 30 PE LAT [id number] [facility] (1602) 4 Comm Ins [place] 03/21/2020 1 12/24/2019 ZOLPIDEM TARTRATE 10 MG TABLET 30.0 30 PE LAT [id number] [facility] (1602) 3 Comm Ins [place] 02/20/2020 1 12/24/2019 ZOLPIDEM TARTRATE 10 MG TABLET 30.0 30 PE LAT [id number] [facility] (1602) 2 Comm Ins [place] 01/21/2020 1 12/24/2019 ZOLPIDEM TARTRATE 10 MG TABLET 30.0 30 PE LAT [id number] [facility] (1602) 1 Comm Ins [place] 12/24/2019 1 12/24/2019 ZOLPIDEM TARTRATE 10 MG TABLET 30.0 30 PE LAT [id number] [facility] (1602) 0 Comm Ins [place] 11/25/2019 1 07/07/2019 ZOLPIDEM TARTRATE 10 MG TABLET 30.0 30 PE LAT [id number] [facility] (1602) 5 Comm Ins [place] [id number] ([id number]) [address] [place] [address] at 1627 RPT #:[id number] END OF REPORT 2020-05-29 11:09:00-00:00 [facility] Pain Management Progress Note REPORT#:[id number] REPORT STATUS: Signed DATE:05/29/20 TIME: 1109 PATIENT: DARIEN GROSSMAN UNIT #: [id number] ROOM/BED: [place] [address] : 45 AGE: 74 SEX: M ATTEND: Rosa Curtis MD ADM AUTHOR: Sohail Wells * ALL edits or amendments must be made on the C-Note/computer document * Subjective Chief complaint: Patient seen and examined. Chart and VIJAYA reyes Patient doing well today. No new complaints Patient being seen for Left thigh pain, lateral femoral cutaneous neuralgia, Right AKA pain, Peripheral neuropathy, phantom l imb pain right lower extremity, and constipation. Patient states symptoms are manageable with use of current medications. No fever/chills, chest pain, dyspnea, no emesis, pruritus, or hallucinations. 14-point ROS undertaken unremarkable except as n oted. Objective General VS/I O: Vital Signs Date Temp Pulse Resp B/P B/P Mean Pulse Ox FiO2 05/28-05/29 36.4-37.3 59-69 16-18 117-153/63-71 80.6-98.4 96-98 Last Documented: Result Date Time Pulse Ox 96 05/29 945 B/P 117/63 05/29 945 B/P Mean 80.6 05/29 945 Temp 36.8 05/29 945 Pulse 69 05/29 945 Resp 16 05/29 945 O2 Delivery Room air 05/24 1937 24 hour I O ending at 0700: 05/29 0700 05/28 1900 Intake Total 360 480 Output Total 100 Balance 260 480 Intake, Oral 360 480 Number 1 Bowel Movements Number Voids 1 Output, Urine 100 PATIENT WEIGHT: Weight (lb): 171 Weight (oz): 12.16 Weight (kg): 77.909 Medications: Active Meds + DC'd Last 24 Hrs Hydrocodone Bitart/Acetaminophen 1 TAB Q4H PRN P RN PO Sertraline HCl 25 MG BEDTIME PO Albumin Human 12.5 GM ASDIR PRN IV Lidocaine HCl 0.5 ML ASDIR PRN I-DERMAL (CKD) Mannitol 12.5 GM ASDIR PRN IV Sodium Chloride 2,000 ML ASDIR PRN IV Sodium Chloride 10 ML ASDIR PRN IV Sodium Chloride 250 ML ASDIR PRN IV Piperacillin Sod/Tazobactam Sod 3.375 GM Q12H IV Sodium Chloride 100 ML Collagenase 1 APPLIC DAILY TOPICAL Lidocaine 1 PATCH DAILY TOPICAL Amitriptyline HCl 10 MG BEDTIME PO Triamcinolone Acetonide 40 MG PROCEDURE IM (CKD) Aspirin 81 MG DAILY PO Clopidogrel Bisulfate 75 MG DAILY PO Furosemide 40 MG DAILY PO Polyethylene Glycol 17 GM DAILY PO Senna 1 TAB DAILY PO (CKD) Venlafaxine HCl 75 MG DAILY PO Acetaminophen 650 MG Q6H PRN PRN PO Hydralazine HCl 10 MG Q6H PRN PRN PO Ondansetron HCl 4 MG TID PRN PRN SL Heparin Sodium 5,000 UNIT Q8H SUBQ Epoetin Donny-epbx 4,000 UNIT TuThSa@2100 SUBQ Gabapentin 300 MG BEDTIME PO Metoprolol Tartrate 25 MG BID PO Trazodone HCl 150 MG BEDTIME PO Zolpidem Tartrate 5 MG BEDTIME PRN PRN PO Physical Exam General appearance: alert, awake, oriented, no a cute distress, comfortable Head/eyes: atraumatic, normocephalic, normal con junctiva/sclera ENT: normal pharynx, moist mucosal membranes Neck: full range of motion, non-tender, supple/n o meningismus Cardiovascular: regular rate rhythm Respiratory: clear to auscultation, no distress, aerating well Abdomen quadrants LLQ normal bowel sounds, LUQ normal roberto l sounds, RLQ normal bowel sounds, RUQ normal bowel sounds Extremities: moves all, no edema, pedal pulses, right AKA Neuro/CUSTODIAN MANAGER: no motor deficits, no sensory deficit s, CNII-XII grossly intact Skin: dry, intact, no rash Lymphatics: no lymphadenopathy Psychiatry: normal judgment/insight, normal mood Results Findings/data: Laboratory Tests: 05/29 0500 Chemistry Sodium (134 - 147 mEq/L) 137 Potassium (3.4 - 5.0 mEq/L) 3.9 Chloride (100 - 108 mEq/L) 99 L Carbon Dioxide (21 - 33 mEq/l) 28 Anion Gap (0 - 20) 13 BUN (7 - 18 mg/dL) 11 Creatinine (0.6 - 1.3 mg/dL) 4.5 H Glomerular Filtr Rate (70 - 80) 12.9 L Glucose (70 - 110 mg/dL) 77 Calcium (8.0 - 10.5 mg/dL) 8.8 Diagnosis, Assessment Plan Free text A P: A/P: Patient is a 74 year old male presenting with: Past medical history: Subdural hematoma, CAD, en d-stage renal disease on HD, hypertension, hyperlipidemia, septic art hritis of prosthesis of previous right TKA, depression Past surgical history: Right TKR, right AKA, cor onary stents Social history: Negative for alcohol, tobacco, i llicit drug use Family history: Not relevant Allergies: Penicillin, iodine Left thigh pain, lateral femoral cutaneous neura lgia -We offered to perform a left lateral femoral cu taneous nerve block to see if this helps with the pain. Patient declined -05/24-decrease Otis 10/325 to Otis 7.5/325 james ry 4 as needed -Lidoderm patch to left thigh daily -Otis 7.5/325 mg oral every 4 hours as needed f or pain -manageable Right AKA discomfort -05/23/2020-CT lower extremity - Above th e knee amputation changes with complex soft tissue fluid collection at the stum p site. There is loss of fatty medullary density at the stump site. Osteomyelitis is not excluded. C orrelate with MRI as clinically indicated. -IV antibiotics , appreciate infectious disease input -Pain medications as outlined above Peripheral neuropathy, phantom limb pain right l ower extremity -Gabapentin 300 mg oral at bedtime -amitriptyline 10 mg oral at bedtime -stable Antalgic/impaired gait -PT/OT -Gait training, improve endurance and strength -Transfer training -PMR following Falls -Fall precautions End-stage renal disease on hemodialysis -Nephrology following Subdural hematoma -Monitor mental status with opioids and other se dative medications Depression -monitoring Constipation -Monitor closely while patient is using opioid n arcotics -MiraLAX 17 g p.o. daily -Senna 1 tab p.o. daily -Manageable Disposition: Discharge date 05/31 All pertinent diagnostics/labs from the last 24 hours and during the course of the admission were reviewed. Plan discussed with the patient and the nurse. A ll questions were answered. Patient will be monitored for deleteriou s side effects associated with opioids and sedative medications. Me dications will be adjusted further clinical course. Risks versus benefits of opioid medications were reviewed to include, but not limited to respiratory depression, accid ental overdose, altered mental status, sudden , constipation which could result in bowel obstruction, seizures, withdrawal, dependency/addiction, risk for falls . Goals: Daily pain control. Case discussed with Dr Lofton whom agrees. 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: Total Prescriptions 28 Total Private Pay 0 Total Prescribers 4 Total Pharmacies 1 05/06/2020 1 05/06/2020 HYDROCODONE-ACETAMIN 10- 325 MG 30.0 7 [facility] SPA [id number] [facility] (1602) 0 42.86 MME Comm Ins [place] 04/20/2020 1 12/24/2019 ZOLPIDEM TARTRATE 10 MG TABLET 30.0 30 PE LAT [id number] [facility] (1602) 4 Comm Ins [place] 03/21/2020 1 12/24/2019 ZOLPIDEM TARTRATE 10 MG TABLET 30.0 30 PE LAT [id number] [facility] (1602) 3 Comm Ins [place] 02/20/2020 1 12/24/2019 ZOLPIDEM TARTRATE 10 MG TABLET 30.0 30 PE LAT [id number] [facility] (1602) 2 Comm Ins [place] 01/21/2020 1 12/24/2019 ZOLPIDEM TARTRATE 10 MG TABLET 30.0 30 PE LAT [id number] [facility] (1602) 1 [place] 12/24/2019 1 12/24/2019 ZOLPIDEM TARTRATE 10 MG TABLET 30.0 30 PE LAT [id number] [facility] (1602) 0 [place] Ins [place] 11/25/2019 1 07/07/2019 ZOLPIDEM TARTRATE 10 MG TABLET 30.0 30 PE LAT [id number] [facility] (1602) 5 Comm Ins [place] [id number] ([id number]) [address] [place] [address] at 1627 Electronically Signed by Herman Lofton MD on 0 05/29/20 at 4608 RPT #:[id number] END OF REPORT 2020-05-29 02:16:00-00:00 [facility] Clinical Note REPORT#:[id number] REPORT STATUS: Signed DATE:05/29/20 TIME: 215 PATIENT: DARIEN GROSSMAN UNIT #: [id number] ROOM/BED: [place] [address] : 45 AGE: 74 SEX: M ATTEND: Rosa Curtis MD ADM AUTHOR: Danny Keith MD * ALL edits or amendments must be made on the C-Note/computer document * Clinical Note Note: 74-year-old male 1. Fall 2. Subdural hematoma 3. TBI (traumatic brain injury) 4. History of right above knee amputation (Onse t: 04/03/20) 5. ESRD on dialysis 6. History of coronary artery disease 7. History of coronary angioplasty with inserti on of stent 8. HLD (hyperlipidemia) 9. Anemia of chronic disease 10. Frequent falls 11. Hypoalbuminemia 12. Leukocytosis 13. Limb pain 14. Impaired functional mobility, balance, gait , and endurance 05/24: Underwent ultrasound guided aspiration of superficial fluid collection and 15 cc of bloody fluid removed. Continue with pain control and IV antibiotics. Continue with renal diet. Blood pre ssure is stable. 05/25: Underwent US guided aspiration of right AK A stump yesterday. Doing well today. Nephrology evaluation noted and continue with hemodialysis. Continue with rehab care. Wound care evaluation noted and continue with wound care. 05/26: Right stump pain and phantom pain. Partici fay in rehab. 05/27: Stable. No new complaints. Continue presen t care. 05/28: She states that she is feeling well. No ne w complaints. 05/29: Doing well. Nephrology had a long discussi on regarding dialysis and options related to treatment. Plan We will continue with telemetry, BP control, gly cemic control, pain control, electrolyte control, DVT/GI prophylaxis, repeat labs. PT/OT/ST. Wound care. Electronically Signed by Danny Keith MD 06/01/20 at 1244 RPT #:[id number] END OF REPORT 2020-05-28 22:47:00-00:00 [facility] REPORT#:[id number] REPORT STATUS: Signed DATE:05/28/20 TIME: 2246 PATIENT: DARIEN GROSSMAN UNIT #: [id number] ROOM/BED: [place] [address] : 45 AGE: 74 SEX: M ATTEND: Sekou Curtis MD ADM AUTHOR: Javier Meek NP * ALL edits or amendments must be made on the C-Note/computer document * Subjective Chief Complaint: Right AKA Possible depression Review of Systems Constitutional: Denies: chills, fever. ENT: Denies: earache, nasal congestion, sore throat. Respiratory: Denies: hemoptysis, parox no cturnal dyspnea, pleurisy, pleuritic pain, pneumonia , SOB, wheezing. Cardiovascular: Denies: chest pain, palpitations. GI: Denies: abdominal pain, nausea, vomiting. : Denies: flank pain, frequency, hematuria. Musculoskeletal: Denies: extremity pain, extr emity swelling, joint pain, lumbar pain, neck pain. Neuro: Denies: change in LOC, confusion, dizziness, foc al weakness, gait problem, headache, lightheaded, numbness, seizure, slurre d speech, spinning sensation, syncope, unable to speak, vision change. Psych: Denies: agitation, anxiety, auditory hallucinati on, change in mental status, confusion, delusional, depre ssion, homicidal ideation, hostile, insomnia, stress , suicidal ideation, visual hallucination. All systems rev neg: except as marked Objective General VS/I O: Laboratory Tests 05/27 0400 Chemistry Sodium (134 - 147 mEq/L) 138 Potassium (3.4 - 5.0 mEq/L) 3.7 Chloride (100 - 108 mEq/L) 103 Carbon Dioxide (21 - 33 mEq/l) 27 Anion Gap (0 - 20) 12 BUN (7 - 18 mg/dL) 41 H Creatinine (0.6 - 1.3 mg/dL) 4.4 H Glomerular Filtr Rate (70 - 80) 13.2 L Glucose (70 - 110 mg/dL) 84 Calcium (8.0 - 10.5 mg/dL) 9.3 Vital Signs: Date Time Temp Pulse Resp B/P B/P Pulse O2 O2 F low FiO2 Mean Ox Delivery Rate 05/28 2230 36.4 59 18 144/64 90.3 97 05/28 1923 36.9 64 17 119/71 87.0 96 05/28 1647 37.3 63 17 153/71 98.4 98 05/28 0815 37.0 62 17 106/49 68.0 96 05/28 0700 05/27 2300 05/27 1500 Intake Total 200 0 Output Total 2200 Balance -1999 0 Intake, Oral 200 Intake, Oral 0 Supplement Number Voids 1 Output, 2200 Hemodialysis Current Medications Sig/Tatum Start time Last Medication Dose Route Stop Time Status Admin Hydrocodone Bitart/ 1 TAB Q4H PRN PRN 05/24 141 5 AC 05/28 Acetaminophen PO 06/10 1200 2123 Sertraline HCl 25 MG BEDTIME 05/23 2100 AC PO 06/22 205 2120 Albumin Human 12.5 GM ASDIR PRN 05/23 1415 AC IV 06/23 1413 Lidocaine HCl 0.5 ML ASDIR PRN 05/23 1415 CKD I-DERMAL 06/23 141 Mannitol 12.5 GM ASDIR PRN 05/23 1415 AC IV 06/23 1413 Sodium Chloride 2,000 ML ASDIR PRN 05/23 1415 A C 05/27 IV 06/23 1413 1552 Sodium Chloride 10 ML ASDIR PRN 05/23 1415 AC 0 05/27 IV 06/22 1414 1553 Sodium Chloride 250 ML ASDIR PRN 05/23 1415 AC IV 06/22 1414 Piperacillin Sod/ 3.375 GM Q12H 05/23 1300 AC 0 05/28 Tazobactam Sod IV 05/30 1259 1505 Sodium Chloride 100 ML Collagenase 1 APPLIC DAILY 05/22 899 AC 05/28 TOPICAL 06/21 0859 0913 Lidocaine 1 PATCH DAILY 05/21 899 AC 05/28 TOPICAL 06/20 0859 0918 Amitriptyline HCl 10 MG BEDTIME 05/20 2099 AC 05/28 PO 06/19 2052120 Triamcinolone 40 MG PROCEDURE 05/20 1944 CKD Acetonide IM 06/20 1943 Aspirin 81 MG DAILY 05/20 899 AC 05/28 PO 06/19 1300 0912 Clopidogrel Bisulfate 75 MG DAILY 05/20 899 AC 05/28 PO 06/19 1300 0912 Furosemide 40 MG DAILY 05/20 899 AC 05/28 PO 06/19 1300 0912 Polyethylene Glycol 17 GM DAILY 05/20 899 AC 05/21 PO 06/19 1300 1016 Senna 1 TAB DAILY 05/20 899 CKD 05/21 PO 06/19 1300 1015 Venlafaxine HCl 75 MG DAILY 05/20 899 AC 05/28 PO 06/19 1300 0914 Acetaminophen 650 MG Q6H PRN PRN 05/20 0845 AC PO 06/19 0844 Hydralazine HCl 10 MG Q6H PRN PRN 05/20 0845 AC PO 06/19 0844 Ondansetron HCl 4 MG TID PRN PRN 05/20 0845 AC SL 06/19 0844 Heparin Sodium 5,000 UNIT Q8H 05/19 2200 AC SUBQ 06/19 1300 2121 Epoetin Donny-epbx 4,000 UNIT TuThSa@2100 05/19 2099 AC 05/28 SUBQ 06/19 1300 2122 Gabapentin 300 MG BEDTIME 05/19 2099 AC 05/28 PO 06/19 1300 2120 Metoprolol Tartrate 25 MG BID 05/19 2099 AC PO 06/19 1300 2121 Trazodone HCl 150 MG BEDTIME 05/19 2099 AC 05/12 7 PO 06/19 1300 2226 Zolpidem Tartrate 5 MG BEDTIME PRN PRN 05/19 20 00 AC 05/28 PO 06/19 1300 2121 Vital Signs Date Temp Pulse Resp B/P B/P Mean Pulse Ox FiO2 05/28 36.4-37.3 59-64 17-18 106-153/49-71 68.0- 98.4 96-98 Last Documented: Result Date Time Pulse Ox 97 05/28 2229 B/P 144/64 05/28 2229 B/P Mean 90.3 05/28 2229 Temp 36.4 05/28 223 Pulse 59 05/28 2230 Resp 18 05/28 2229 O2 Delivery Room air 05/24 1937 24 hour I O ending at 0700: 05/28 0700 05/27 190 Intake Total 200 0 Output Total 2199 Balance -1999 0 Intake, Oral 200 Intake, Oral 0 Supplement Number Voids 1 Output, 0 Hemodialysis PATIENT WEIGHT: Weight (lb): 171 Weight (oz): 12.16 Weight (kg): 77.909 Physical Exam General appearance: alert, awake Neck: no JVD Cardiovascular: regular rate rhythm Respiratory: aerating well, clear to auscultatio n Abdomen: non-tender, normal bowel sounds, soft Extremities: Extremities: RT AKA Neuro/CUSTODIAN MANAGER: alert, oriented x 3 Skin: dry, normal temperature, AKA stump celluli tis, w wound dehiscence- Psychiatry: depressed, normal judgement/insight Diagnosis, Assessment Plan Free Text DxA P Notes Free text DxA P notes: Assessment: 1.Mechanical fall 2.Traumatic brain injury with subdural hematoma 3. Right AKA pulmonary 2020 4. IMpaired mobility/Impaired gait 5. History of depression 6. Generalized weakness 7. Phantom pain 8. End-stage renal disease on hemodialysis 3 day s a week 9. Anemia 10. History of coronary artery disease, hyperten willy, and hyperlipidemia 05/21/20 Patient's doing well Sitting in a wheelchair Participating in therapy Family visiting at the bedside 05/22/20 Patient participating in therapy daily Reportedly patient is depressed He answered all my questions but seems to be sad May 23, 2020 No leukocytosis, anemia Continue to monitor renal function CT of the right femur without contrast: [id number] amputation changes with complex soft tissue fluid collection at the stump site. There is loss of fatty medullary density at the stump site. Osteomyelit is is not excluded. Correlate with MRI. Continue wound care May 24, 2020 The patient underwent ultrasound-guided aspirati on of superficial fluid collection May 25, 2020 Patient was started on Zoloft and venlafaxine Continue psychiatric medications Supportive psychotherapy for anxiety and depress ion Status post US guided aspiration of right AKA st ump yesterday. Continue hemodialysis and wound care Monitor H H Continue working with rehab May 26, 2020 Complaining of right stump pain, neuropathy and phantom limb pain as per pain management Working with rehab, better mood Hemodialysis yesterday May 27, 2020 Reports less pain, complains of generalized weak ness Cooperating with rehab There is some descent of the wound, seen by arcenio d care Continue antibiotics Zosyn for right stump wound /cellulitis May 28, 2020: Right AKA stump cellulitis, w wound dehiscence 05/24/20 sp aspiration culture by IR of loculated fluid c ollection On IV Zosyn per ID. Wound care as per wound care team/Dr. Shruti Molina with xeroform to dehisced sites, cover w ith foam dressing daily. -Wound VAC is being planned by wound care Plan of care: -Continue with comprehensive inpatient rehabilit [facility] rehab team -Wound care as per Dr. Gilbert -Dialysis per nephrology team -Pain control -Fall precaution -DVT prophylaxis -GI prophylaxis -Pain control as pain management -Seizure precaution patient on Keppra -Continues present medications -Monitor labs -Plan of care discussed with the patient, galina palma'lennox nurse, and Dr. Cavazos. Electronically Signed by Javier Meek MONOGRAM MAKER on 0 05/30/20 at 1213 RPT #:[id number] END OF REPORT 2020-05-28 22:47:00-00:00 [facility] Internal Medicine Prog. Note REPORT#:[id number] REPORT STATUS: Signed DATE:05/28/20 TIME: 2246 PATIENT: DARIEN GROSSMAN UNIT #: [id number] ROOM/BED: [place] [address] : 45 AGE: 74 SEX: M ATTEND: Rosa Curtis MD ADM AUTHOR: Javier Meek NP * ALL edits or amendments must be made on the C-Note/computer document * Subjective Chief Complaint: Right AKA Possible depression Review of Systems Constitutional: Denies: chills, fever. ENT: Denies: earache, nasal congestion, sore throat. Respiratory: Denies: hemoptysis, parox no cturnal dyspnea, pleurisy, pleuritic pain, pneumonia , SOB, wheezing. Cardiovascular: Denies: chest pain, palpitations. GI: Denies: abdominal pain, nausea, vomiting. : Denies: flank pain, frequency, hematuria. Musculoskeletal: Denies: extremity pain, extr emity swelling, joint pain, lumbar pain, neck pain. Neuro: Denies: change in LOC, confusion, dizziness, foc al weakness, gait problem, headache, lightheaded, numbness, seizure, slurre d speech, spinning sensation, syncope, unable to speak, vision change. Psych: Denies: agitation, anxiety, auditory hallucinati on, change in mental status, confusion, delusional, depre ssion, homicidal ideation, hostile, insomnia, stress , suicidal ideation, visual hallucination. All systems rev neg: except as marked Objective General VS/I O: Laboratory Tests 05/27 0400 Chemistry Sodium (134 - 147 mEq/L) 138 Potassium (3.4 - 5.0 mEq/L) 3.7 Chloride (100 - 108 mEq/L) 103 Carbon Dioxide (21 - 33 mEq/l) 27 Anion Gap (0 - 20) 12 BUN (7 - 18 mg/dL) 41 H Creatinine (0.6 - 1.3 mg/dL) 4.4 H Glomerular Filtr Rate (70 - 80) 13.2 L Glucose (70 - 110 mg/dL) 84 Calcium (8.0 - 10.5 mg/dL) 9.3 Vital Signs: Date Time Temp Pulse Resp B/P B/P Pulse O2 O2 F low FiO2 Mean Ox Delivery Rate 05/28 2230 36.4 59 18 144/64 90.3 97 05/28 1923 36.9 64 17 119/71 87.0 96 05/28 1647 37.3 63 17 153/71 98.4 98 05/28 0815 37.0 62 17 106/49 68.0 96 05/28 0700 05/27 2300 05/27 1500 Intake Total 200 0 Output Total 2200 Balance -2000 0 Intake, Oral 200 Intake, Oral 0 Supplement Number Voids 1 Output, 2200 Hemodialysis Current Medications Sig/Tatum Start time Last Medication Dose Route Stop Time Status Admin Hydrocodone Bitart/ 1 TAB Q4H PRN PRN 05/24 141 5 AC 05/28 Acetaminophen PO 06/10 1200 2123 Sertraline HCl 25 MG BEDTIME 05/23 2100 AC 05/12 7 PO 06/22 2058 2120 Albumin Human 12.5 GM ASDIR PRN 05/23 1415 AC IV 06/23 1413 Lidocaine HCl 0.5 ML ASDIR PRN 05/23 1415 CKD I-DERMAL 06/23 1413 Mannitol 12.5 GM ASDIR PRN 05/23 1415 AC IV 06/23 1413 Sodium Chloride 2,000 ML ASDIR PRN 05/23 1415 AC 05/27 IV 06/23 1413 1552 Sodium Chloride 10 ML ASDIR PRN 05/23 1415 AC 0 05/27 IV 06/22 1414 1553 Sodium Chloride 250 ML ASDIR PRN 05/23 1415 AC IV 06/22 1414 Piperacillin Sod/ 3.375 GM Q12H 05/23 1300 AC 0 05/28 Tazobactam Sod IV 05/30 1259 1505 Sodium Chloride 100 ML Collagenase 1 APPLIC DAILY 05/22 899 AC 05/28 TOPICAL 06/21 0859 0913 Lidocaine 1 PATCH DAILY 05/21 899 AC 05/28 TOPICAL 06/20 0859 0918 Amitriptyline HCl 10 MG BEDTIME 05/20 2100 AC 0 05/28 PO 06/19 2058 212 Triamcinolone 40 MG PROCEDURE 05/20 1944 CKD Acetonide IM 06/20 1943 Aspirin 81 MG DAILY 05/20 899 AC 05/28 PO 06/19 1300 0912 Clopidogrel Bisulfate 75 MG DAILY 05/20 899 AC 05/28 PO 06/19 1300 0912 Furosemide 40 MG DAILY 05/20 899 AC 05/28 PO 06/19 1300 0912 Polyethylene Glycol 17 GM DAILY 05/20 899 AC 0 05/21 PO 06/19 1300 1016 Senna 1 TAB DAILY 05/20 899 CKD 04/10 PO 06/19 1300 1015 Venlafaxine HCl 75 MG DAILY 05/20 899 AC 05/28 PO 06/19 1300 0914 Acetaminophen 650 MG Q6H PRN PRN 05/20 0845 AC PO 06/19 0844 Hydralazine HCl 10 MG Q6H PRN PRN 05/20 844 AC PO 06/19 0844 Ondansetron HCl 4 MG TID PRN PRN 05/20 844 AC SL 06/19 0844 Heparin Sodium 5,000 UNIT Q8H 05/19 2199 AC SUBQ 06/19 1300 212 Epoetin Donny-epbx 4,000 UNIT TuThSa@2100 05/19 2099 AC 05/28 SUBQ 06/19 1300 2122 Gabapentin 300 MG BEDTIME 05/19 2099 AC 05/28 PO 06/19 1300 2120 Metoprolol Tartrate 25 MG BID 05/19 2099 AC PO 06/19 1300 212 Trazodone HCl 150 MG BEDTIME 05/19 2099 AC PO 06/19 1300 2226 Zolpidem Tartrate 5 MG BEDTIME PRN PRN 05/19 20 00 AC 05/28 PO 06/19 1300 212 Vital Signs Date Temp Pulse Resp B/P B/P Mean Pulse Ox FiO2 05/28 36.4-37.3 59-64 17-18 106-153/49-71 68.0- 98.4 96-98 Last Documented: Result Date Time Pulse Ox 97 05/280 B/P 144/64 05/28 2229 B/P Mean 90.3 05/280 Temp 36.4 05/28 2230 Pulse 59 05/28 2230 Resp 18 05/28 223 O2 Delivery Room air 05/24 1938 24 hour I O ending at 0700: 05/28 0700 05/27 1900 Intake Total 200 0 Output Total 2200 Balance -1999 0 Intake, Oral 200 Intake, Oral 0 Supplement Number Voids 1 Output, 0 Hemodialysis PATIENT WEIGHT: Weight (lb): 171 Weight (oz): 12.16 Weight (kg): 77.909 Physical Exam General appearance: alert, awake Neck: no JVD Cardiovascular: regular rate rhythm Respiratory: aerating well, clear to auscultatio n Abdomen: non-tender, normal bowel sounds, soft Extremities: Extremities: RT AKA Neuro/CUSTODIAN MANAGER: alert, oriented x 3 Skin: dry, normal temperature, AKA stump celluli tis, w wound dehiscence- Psychiatry: depressed, normal judgement/insight Diagnosis, Assessment Plan Free Text DxA P Notes Free text DxA P notes: Assessment: 1.Mechanical fall 2.Traumatic brain injury with subdural hematoma 3. Right AKA pulmonary 2020 4. IMpaired mobility/Impaired gait 5. History of depression 6. Generalized weakness 7. Phantom pain 8. End-stage renal disease on hemodialysis 3 day s a week 9. Anemia 10. History of coronary artery disease, hyperten willy, and hyperlipidemia 05/21/20 Patient's doing well Sitting in a wheelchair Participating in therapy Family visiting at the bedside 05/22/20 Patient participating in therapy daily Reportedly patient is depressed He answered all my questions but seems to be sad May 23, 2020 No leukocytosis, anemia Continue to monitor renal function CT of the right femur without contrast: [id number] amputation changes with complex soft tissue fluid collection at the stump site. There is loss of fatty medullary density at the stump site. Osteomyelit is is not excluded. Correlate with MRI. Continue wound care May 24, 2020 The patient underwent ultrasound-guided aspirati on of superficial fluid collection May 25, 2020 Patient was started on Zoloft and venlafaxine Continue psychiatric medications Supportive psychotherapy for anxiety and depress ion Status post US guided aspiration of right AKA st ump yesterday. Continue hemodialysis and wound care Monitor H H Continue working with rehab May 26, 2020 Complaining of right stump pain, neuropathy and phantom limb pain as per pain management Working with rehab, better mood Hemodialysis yesterday May 27, 2020 Reports less pain, complains of generalized weak ness Cooperating with rehab There is some descent of the wound, seen by arcenio haque Continue antibiotics Zosyn for right stump wound /cellulitis May 28, 2020: Right AKA stump cellulitis, w wound dehiscence 05/24/20 sp aspiration culture by IR of loculated fluid collection On IV Zosyn per ID. Wound care as per wound care team/Dr. Shruti Molina with xeroform to dehisced sites, cover w ith foam dressing daily. -Wound VAC is being planned by wound care Plan of care: -Continue with comprehensive inpatient rehabilit [facility] rehab team -Wound care as per Dr. Gilbert -Dialysis per nephrology team -Pain control -Fall precaution -DVT prophylaxis -GI prophylaxis -Pain control as pain management -Seizure precaution patient on Keppra -Continues present medications -Monitor labs -Plan of care discussed with the patient, glaina palma's nurse, and Dr. Cavazos. Electronically Signed by Javier Meek NP on 0 05/30/20 at 1213 Electronically Signed by Danny Keith MD o n 06/02/20 at 2131 RPT #:[id number] END OF REPORT 2020-05-28 12:46:00-00:00 [facility] ([facility]) Nephrology Progress Note REPORT#:[id number] REPORT STATUS: Signed DATE:05/28/20 TIME: 1246 PATIENT: DARIEN GROSSMAN UNIT #: [id number] ROOM/BED: [place] [address] : 45 AGE: 74 SEX: M ATTEND: Rosa Curtis MD ADM AUTHOR: Jenny Banegas * ALL edits or amendments must be made on the C-Note/computer document * Subjective Chief Complaint: Patient seen and examined. Reports feeling well. No new complaints. Review of Systems All systems rev neg: except as marked Objective General VS/I O: Vital Signs: Date Time Temp Pulse Resp B/P B/P Pulse O2 O2 F low FiO2 Mean Ox Delivery Rate 05/28 0815 98.6 62 17 106/49 68.0 96 05/27 2103 99.0 64 18 117/64 81.3 97 05/27 1418 97.7 60 16 144/66 91.6 95 24 hour I O ending at 0700: 05/28 0700 05/27 1900 Intake Total 200 0 Output Total 2200 Balance -2000 0 Intake, Oral 200 Intake, Oral 0 Supplement Number Voids 1 Output, 2200 Hemodialysis PATIENT WEIGHT: Weight (lb): 171 Weight (oz): 12.16 Weight (kg): 77.909 Medications Active Meds + DC'd Last 24 Hrs Hydrocodone Bitart/Acetaminophen 1 TAB Q4H PRN P RN PO Sertraline HCl 25 MG BEDTIME PO Albumin Human 12.5 GM ASDIR PRN IV Lidocaine HCl 0.5 ML ASDIR PRN I-DERMAL (CKD) Mannitol 12.5 GM ASDIR PRN IV Sodium Chloride 2,000 ML ASDIR PRN IV Sodium Chloride 10 ML ASDIR PRN IV Sodium Chloride 250 ML ASDIR PRN IV Piperacillin Sod/Tazobactam Sod 3.375 GM Q12H IV Sodium Chloride 100 ML Collagenase 1 APPLIC DAILY TOPICAL Lidocaine 1 PATCH DAILY TOPICAL Amitriptyline HCl 10 MG BEDTIME PO Triamcinolone Acetonide 40 MG PROCEDURE IM (CKD ) Aspirin 81 MG DAILY PO Clopidogrel Bisulfate 75 MG DAILY PO Furosemide 40 MG DAILY PO Polyethylene Glycol 17 GM DAILY PO Senna 1 TAB DAILY PO (CKD) Venlafaxine HCl 75 MG DAILY PO Acetaminophen 650 MG Q6H PRN PRN PO Hydralazine HCl 10 MG Q6H PRN PRN PO Ondansetron HCl 4 MG TID PRN PRN SL Heparin Sodium 5,000 UNIT Q8H SUBQ Epoetin Donny-epbx 4,000 UNIT TuThSa@2100 SUBQ Gabapentin 300 MG BEDTIME PO Metoprolol Tartrate 25 MG BID PO Trazodone HCl 150 MG BEDTIME PO Zolpidem Tartrate 5 MG BEDTIME PRN PRN PO Physical Exam General appearance: alert, awake, oriented Head/eyes: atraumatic, normocephalic Cardiovascular: regular rate and rhythm, pedal p ulses present Respiratory: clear to auscultation, normal breat h sounds Abdomen: normal bowel sounds, soft Extremities: no edema, Rt AKA Diagnosis, Assessment Plan Hospital course to date: 1. ESRD 2. RT AKA stump infection 3. Hypertension 4. Status post fall and acute SDH 5. Anemia of chronic kidney disease 6. Coronary artery disease Plan -HD MWF. HD in am -Blood pressure currently stable -Renal diet -Hemoglobin better. On Epogen 3 times weekly -Phos has been stable. -Rehab f/u. Free Text A P: 1. ESRD 2. AVF infiltration 3. Hypertension 4. Status post fall and acute SDH 5. Anemia of chronic kidney disease 6. Coronary artery disease Plan -HD MWF. Next treatment Saturday. -Blood pressure currently stable -Renal diet -Hemoglobin better. On Epogen 3 times weekly -Phos has been stable. -Psych f/u. This plan of care was discussed with Dr Sriram min. at 1247 RPT #:[id number] END OF REPORT 2020-05-28 12:46:00-00:00 [facility] ([facility] Nephrology Progress Note REPORT#:[id number] REPORT STATUS: Signed DATE:05/28/20 TIME: 124 PATIENT: DARIEN GROSSMAN UNIT #: [id number] ROOM/BED: [place] [address] : 45 AGE: 74 SEX: M ATTEND: Rosa Curtis MD ADM AUTHOR: Jenny Banegas * ALL edits or amendments must be made on the C-Note/computer document * Jenny Banegas 05/28/20 1246: Subjective Chief Complaint: Patient seen and examined. Reports feeling well. No new complaints. Review of Systems All systems rev neg: except as marked Objective General VS/I O: Vital Signs: Date Time Temp Pulse Resp B/P B/P Pulse O2 O2 F low FiO2 Mean Ox Delivery Rate 05/28 0815 98.6 62 17 106/49 68.0 96 05/27 2103 99.0 64 18 117/64 81.3 97 05/27 1418 97.7 60 16 144/66 91.6 95 24 hour I O ending at 0700: 05/28 0700 05/27 1900 Intake Total 200 0 Output Total 2200 Balance -2000 0 Intake, Oral 200 Intake, Oral 0 Supplement Number Voids 1 Output, 2200 Hemodialysis PATIENT WEIGHT: Weight (lb): 171 Weight (oz): 12.16 Weight (kg): 77.909 Medications Active Meds + DC'd Last 24 Hrs Hydrocodone Bitart/Acetaminophen 1 TAB Q4H PRN P RN PO Sertraline HCl 25 MG BEDTIME PO Albumin Human 12.5 GM ASDIR PRN IV Lidocaine HCl 0.5 ML ASDIR PRN I-DERMAL (CKD) Mannitol 12.5 GM ASDIR PRN IV Sodium Chloride 2,000 ML ASDIR PRN IV Sodium Chloride 10 ML ASDIR PRN IV Sodium Chloride 250 ML ASDIR PRN IV Piperacillin Sod/Tazobactam Sod 3.375 GM Q12H IV Sodium Chloride 100 ML Collagenase 1 APPLIC DAILY TOPICAL Lidocaine 1 PATCH DAILY TOPICAL Amitriptyline HCl 10 MG BEDTIME PO Triamcinolone Acetonide 40 MG PROCEDURE IM (CKD) Aspirin 81 MG DAILY PO Clopidogrel Bisulfate 75 MG DAILY PO Furosemide 40 MG DAILY PO Polyethylene Glycol 17 GM DAILY PO Senna 1 TAB DAILY PO (CKD) Venlafaxine HCl 75 MG DAILY PO Acetaminophen 650 MG Q6H PRN PRN PO Hydralazine HCl 10 MG Q6H PRN PRN PO Ondansetron HCl 4 MG TID PRN PRN SL Heparin Sodium 5,000 UNIT Q8H SUBQ Epoetin Donny-epbx 4,000 UNIT TuThSa@2100 SUBQ Gabapentin 300 MG BEDTIME PO Metoprolol Tartrate 25 MG BID PO Trazodone HCl 150 MG BEDTIME PO Zolpidem Tartrate 5 MG BEDTIME PRN PRN PO Physical Exam General appearance: alert, awake, oriented Head/eyes: atraumatic, normocephalic Cardiovascular: regular rate and rhythm, pedal p ulses present Respiratory: clear to auscultation, normal breat h sounds Abdomen: normal bowel sounds, soft Extremities: no edema, Rt AKA Diagnosis, Assessment Plan Hospital course to date: 1. ESRD 2. RT AKA stump infection 3. Hypertension 4. Status post fall and acute SDH 5. Anemia of chronic kidney disease 6. Coronary artery disease Plan -HD MWF. HD in am -Blood pressure currently stable -Renal diet -Hemoglobin better. On Epogen 3 times weekly -Phos has been stable. -Rehab f/u. Free Text A P: 1. ESRD 2. AVF infiltration 3. Hypertension 4. Status post fall and acute SDH 5. Anemia of chronic kidney disease 6. Coronary artery disease Plan -HD MWF. Next treatment Saturday. -Blood pressure currently stable -Renal diet -Hemoglobin better. On Epogen 3 times weekly -Phos has been stable. -Psych f/u. This plan of care was discussed with Dr Sriram min. Anders Quick 05/30/20 1548: Attestations Physician Attestation Agree w/findings plan: I have reviewed the history physical and plan with ORVILLE Rooney and have reviewed the note with her. I have also examined the patient with her and I concur with the physical findings that she has e licited and documented.. Patient seems to be interested in peritoneal mio lysis program fortunately patient has had several abdo vito surgeries which can be a problem. I explained to the patient that it is not impossible but the surgeon has to be reminded if peritoneal dialysis catheter can be placed and also if he has enough peritoneum left. at 1247 RPT #:[id number] END OF REPORT 2020-05-28 12:46:00-00:00 [facility] Nephrology Progress Note REPORT#:[id number] REPORT STATUS: Signed DATE:05/28/20 TIME: 1246 PATIENT: DARIEN GROSSMAN UNIT #: [id number] ROOM/BED: [place] [address] : 45 AGE: 74 SEX: M ATTEND: Rosa Curtis MD ADM AUTHOR: Jenny Banegas * ALL edits or amendments must be made on the C-Note/computer document * Jenny Banegas 05/28/20 1246: Subjective Chief Complaint: Patient seen and examined. Reports feeling well. No new complaints. Review of Systems All systems rev neg: except as marked Objective General VS/I O: Vital Signs: Date Time Temp Pulse Resp B/P B/P Pulse O2 O2 F low FiO2 Mean Ox Delivery Rate 05/28 0815 98.6 62 17 106/49 68.0 96 05/27 2103 99.0 64 18 117/64 81.3 97 05/27 1418 97.7 60 16 144/66 91.6 95 24 hour I O ending at 0700: 05/28 0700 05/27 1900 Intake Total 200 0 Output Total 2200 Balance -1999 0 Intake, Oral 200 Intake, Oral 0 Supplement Number Voids 1 Output, 2200 Hemodialysis PATIENT WEIGHT: Weight (lb): 171 Weight (oz): 12.16 Weight (kg): 77.909 Medications Active Meds + DC'd Last 24 Hrs Hydrocodone Bitart/Acetaminophen 1 TAB Q4H PRN P RN PO Sertraline HCl 25 MG BEDTIME PO Albumin Human 12.5 GM ASDIR PRN IV Lidocaine HCl 0.5 ML ASDIR PRN I-DERMAL (CKD) Mannitol 12.5 GM ASDIR PRN IV Sodium Chloride 2,000 ML ASDIR PRN IV Sodium Chloride 10 ML ASDIR PRN IV Sodium Chloride 250 ML ASDIR PRN IV Piperacillin Sod/Tazobactam Sod 3.375 GM Q12H IV Sodium Chloride 100 ML Collagenase 1 APPLIC DAILY TOPICAL Lidocaine 1 PATCH DAILY TOPICAL Amitriptyline HCl 10 MG BEDTIME PO Triamcinolone Acetonide 40 MG PROCEDURE IM (CKD) Aspirin 81 MG DAILY PO Clopidogrel Bisulfate 75 MG DAILY PO Furosemide 40 MG DAILY PO Polyethylene Glycol 17 GM DAILY PO Senna 1 TAB DAILY PO (CKD) Venlafaxine HCl 75 MG DAILY PO Acetaminophen 650 MG Q6H PRN PRN PO Hydralazine HCl 10 MG Q6H PRN PRN PO Ondansetron HCl 4 MG TID PRN PRN SL Heparin Sodium 5,000 UNIT Q8H SUBQ Epoetin Donny-epbx 4,000 UNIT TuThSa@2100 SUBQ Gabapentin 300 MG BEDTIME PO Metoprolol Tartrate 25 MG BID PO Trazodone HCl 150 MG BEDTIME PO Zolpidem Tartrate 5 MG BEDTIME PRN PRN PO Physical Exam General appearance: alert, awake, oriented Head/eyes: atraumatic, normocephalic Cardiovascular: regular rate and rhythm, pedal p ulses present Respiratory: clear to auscultation, normal breat h sounds Abdomen: normal bowel sounds, soft Extremities: no edema, Rt AKA Diagnosis, Assessment Plan Hospital course to date: 1. ESRD 2. RT AKA stump infection 3. Hypertension 4. Status post fall and acute SDH 5. Anemia of chronic kidney disease 6. Coronary artery disease Plan -HD MWF. HD in am -Blood pressure currently stable -Renal diet -Hemoglobin better. On Epogen 3 times weekly -Phos has been stable. -Rehab f/u. Free Text A P: 1. ESRD 2. AVF infiltration 3. Hypertension 4. Status post fall and acute SDH 5. Anemia of chronic kidney disease 6. Coronary artery disease Plan -HD MWF. Next treatment Saturday. -Blood pressure currently stable -Renal diet -Hemoglobin better. On Epogen 3 times weekly -Phos has been stable. -Psych f/u. This plan of care was discussed with Dr Sriram min. Anders Quick 05/30/20 1548: Attestations Physician Attestation Agree w/findings plan: I have reviewed the history physical and plan with ORVILLE Rooney and have reviewed the note with her. I have also examined the patient with her and I concur with the physical findings that she has e licited and documented.. Patient seems to be interested in peritoneal mio lysis program fortunately patient has had several abdo vito surgeries which can be a problem. I explained to the patient that it is not impossible but the surgeon has to be reminded if peritoneal dialysis catheter can be placed and also if he has enough peritoneum left. at 1247 at 1548 RPT #:[id number] END OF REPORT 2020-05-28 12:01:00-00:00 [facility] ([facility]) Infectious Dis. Progress Note REPORT#:[id number] REPORT STATUS: Signed DATE:05/28/20 TIME: 1201 PATIENT: DARIEN GROSSMAN UNIT #: [id number] ROOM/BED: [place] [address] : 45 AGE: 74 SEX: M ATTEND: Rosa Curtis MD ADM AUTHOR: Jonathan Sheikh NP * ALL edits or amendments must be made on the C-Note/computer document * Subjective Chief Complaint: F/U Right AKA cellulitis HPI: Patient is a 74-year-old male with past medical history of end-stage renal disease on HD, hypertension, hyperlipide liseth who underwent right [id number] amputation in March 2020. He was admitted to [facility] after sustaining a fall resulting in a subdural hematoma. He was transferred to rehab on . He was noted to have small amount of gamal inage to his right AKA stump and hence ID was consulted to assist with antibi otics and plan of care. Patient reports: Yes: bowel movement, feeling better. No: complaints, abdominal pain, back pain, burning with urination, cough, diarrhea, fever, headache, nausea, pain, pain controlled, shortness of breath, vomiting, wheez ing. Nursing reports: No: complaints. Comments: Seen during PT in gym Review of Systems All systems rev neg: except as marked Objective General VS/I O: Last Documented: Result Date Time Pulse Ox 96 05/28 0815 B/P 106/49 05/28 0815 B/P Mean 68.0 05/28 0815 Temp 98.6 05/28 0815 Pulse 62 05/28 0815 Resp 17 05/28 08 O2 Delivery Room air 05/24 1937 Vital Signs Date Temp Pulse Resp B/P B/P Mean Pulse Ox FiO2 05/27-05/28 97.7-99.0 60-64 16-18 106-144/49-66 68.0-91.6 95-97 24 hour I O ending at 0700: 05/28 0700 05/27 1900 Intake Total 200 0 Output Total 2200 Balance -2000 0 Intake, Oral 200 Intake, Oral 0 Supplement Number Voids 1 Output, 2200 Hemodialysis PATIENT WEIGHT: Weight (lb): 171 Weight (oz): 12.16 Weight (kg): 77.909 Physical Exam General appearance: alert, awake, oriented, no a cute distress, pleasant, conversational, mental status normal Wound/incision: Location: Right AKA stump dressing C/D/I Head/Eyes: atraumatic, normal conjunctiva/sclera Neck: full range of motion Cardiovascular: regular rate rhythm Respiratory: clear to auscultation, aerating wel l, no distress Abdomen: non-tender, normal bowel sounds Neuro/CUSTODIAN MANAGER: alert, oriented X 3 Skin: dry, no rash Results Results: labs reviewed, vital signs stable, curr ent med profile rev'd Diagnosis, Assessment Plan Free Text A P: 1. Right AKA stump cellulitis --R/O fluid collection, check CT extremity --Superficial cx: Pseudomonas (R-Merrem), and Co NS --ESR/CRP significant elevated --CT (+) [id number] loculated f luid collection; S/P diagnostic aspiration by IR , GS (-), CX (-) 2. S/P Mechanical fall with SDH 3. ESRD on HD 4. HTN 5. HLD On Zosyn started 05/23 (Day 5) of 7 Plan discussed with: patient, collaborating MD, nurse Electronically Signed by Jonathan Sheikh NP on at 1203 RPT #:[id number] END OF REPORT 2020-05-28 12:01:00-00:00 [facility] ([facility]) Infectious Dis. Progress Note REPORT#:[id number] REPORT STATUS: Signed DATE:05/28/20 TIME: 1201 PATIENT: DARIEN GROSSMAN UNIT #: [id number] ROOM/BED: [place] [address] : 45 AGE: 74 SEX: M ATTEND: Rosa Curtis MD ADM AUTHOR: Jonathan Sheikh NP * ALL edits or amendments must be made on the C-Note/Above All Software document * Subjective Chief Complaint: F/U Right AKA cellulitis HPI: Patient is a 74-year-old male with past medical history of end-stage renal disease on HD, hypertension, hyperlipide liseth who underwent right [id number] amputation in March 2020. He was admitted to [facility] after sustaining a fall resulting in a subdural hematoma. He was transferred to rehab on 5 E. He was noted to have small amount of gamal inage to his right AKA stump and hence ID was consulted to assist with antibi otics and plan of care. Patient reports: Yes: bowel movement, feeling better. No: complaints, abdominal pain, back pain, burning with urination, cough, diarrhea, fever, headache, nausea, pain, pain controlled, shortness of breath, vomiting, wheez ing. Nursing reports: No: complaints. Comments: Seen during PT in gym Review of Systems All systems rev neg: except as marked Objective General VS/I O: Last Documented: Result Date Time Pulse Ox 96 05/28 814 B/P 106/49 05/29 0715 B/P Mean 68.0 05/28 814 Temp 98.6 05/28 814 Pulse 62 05/28 08 Resp 17 05/28 814 O2 Delivery Room air 05/24 1937 Vital Signs Date Temp Pulse Resp B/P B/P Mean Pulse Ox FiO2 05/27-05/28 97.7-99.0 60-64 16-18 106-144/49-66 68.0-91.6 95-97 24 hour I O ending at 0700: 05/28 0700 05/27 1900 Intake Total 200 0 Output Total 2200 Balance -2000 0 Intake, Oral 200 Intake, Oral 0 Supplement Number Voids 1 Output, 2200 Hemodialysis PATIENT WEIGHT: Weight (lb): 171 Weight (oz): 12.16 Weight (kg): 77.909 Physical Exam General appearance: alert, awake, oriented, no a cute distress, pleasant, conversational, mental status normal Wound/incision: Location: Right AKA stump dressing C/D/I Head/Eyes: atraumatic, normal conjunctiva/sclera Neck: full range of motion Cardiovascular: regular rate rhythm Respiratory: clear to auscultation, aerating wel l, no distress Abdomen: non-tender, normal bowel sounds Neuro/CUSTODIAN MANAGER: alert, oriented X 3 Skin: dry, no rash Results Results: labs reviewed, vital signs stable, curr ent med profile rev'd Diagnosis, Assessment Plan Free Text A P: 1. Right AKA stump cellulitis --R/O fluid collection, check CT extremity --Superficial cx: Pseudomonas (R-Merrem), and Co NS --ESR/CRP significant elevated --CT (+) [id number] loculated f luid collection; S/P diagnostic aspiration by IR , GS (-), CX (-) 2. S/P Mechanical fall with SDH 3. ESRD on HD 4. HTN 5. HLD On Zosyn started 05/23 (Day 5) of 7 Plan discussed with: patient, collaborating MD, nurse Electronically Signed by Jonathan Sheikh NP on at 1203 at 2156 RPT #:[id number] END OF REPORT 2020-05-28 11:52:00-00:00 [facility] ([facility]) Wound Care Progress Note REPORT#:[id number] REPORT STATUS: Signed DATE:05/28/20 TIME: 1152 PATIENT: DRAIEN GROSSMAN UNIT #: [id number] ROOM/BED: [place] [address] : 45 AGE: 74 SEX: M ATTEND: Rosa Curtis MD ADM AUTHOR: Nicky Herron NP * ALL edits or amendments must be made on the C-Note/Above All Software document * Subjective Chief Complaint: FU R AKA wounds; c/o pain at stump Objective General VS: Last Documented: Result Date Time Pulse Ox 96 05/28 814 B/P 106/49 05/28 814 B/P Mean 68.0 05/28 814 Temp 37.0 05/28 814 Pulse 62 05/28 814 Resp 17 05/28 814 O2 Delivery Room air 05/24 1937 PATIENT WEIGHT: Weight (lb): 171 Weight (oz): 12.16 Weight (kg): 77.909 Medications: Active Meds + DC'd Last 24 Hrs Hydrocodone Bitart/Acetaminophen 1 TAB Q4H PRN P RN PO Sertraline HCl 25 MG BEDTIME PO Albumin Human 12.5 GM ASDIR PRN IV Lidocaine HCl 0.5 ML ASDIR PRN I-DERMAL (CKD) Mannitol 12.5 GM ASDIR PRN IV Sodium Chloride 2,000 ML ASDIR PRN IV Sodium Chloride 10 ML ASDIR PRN IV Sodium Chloride 250 ML ASDIR PRN IV Piperacillin Sod/Tazobactam Sod 3.375 GM Q12H IV Sodium Chloride 100 ML Collagenase 1 APPLIC DAILY TOPICAL Lidocaine 1 PATCH DAILY TOPICAL Amitriptyline HCl 10 MG BEDTIME PO Triamcinolone Acetonide 40 MG PROCEDURE IM (CKD ) Aspirin 81 MG DAILY PO Clopidogrel Bisulfate 75 MG DAILY PO Furosemide 40 MG DAILY PO Polyethylene Glycol 17 GM DAILY PO Senna 1 TAB DAILY PO (CKD) Venlafaxine HCl 75 MG DAILY PO Acetaminophen 650 MG Q6H PRN PRN PO Hydralazine HCl 10 MG Q6H PRN PRN PO Ondansetron HCl 4 MG TID PRN PRN SL Heparin Sodium 5,000 UNIT Q8H SUBQ Epoetin Donny-epbx 4,000 UNIT TuThSa@2100 SUBQ Gabapentin 300 MG BEDTIME PO Metoprolol Tartrate 25 MG BID PO Trazodone HCl 150 MG BEDTIME PO Zolpidem Tartrate 5 MG BEDTIME PRN PRN PO Physical Exam Skin: R AKA wound dehiscence on both medial late ral ends of stump ( abt 0.5x0.5x0.2 cm) w/ less slough; few superficial dehiscence areas at entire incision site. Minimal erythema @ medial aspect. Diagnosis, Assessment Plan Free Text A P: Right AKA stump cellulitis, w wound dehiscence- ( sp aspiration culture by IR of loculated fluid collection ) ; Superficial cx : Pseudomonas (R-Merrem), and CoN. Aspirate Cx neg. On IV Zosyn per ID. Santyl with xeroform to dehisced sites , cover w ith foam dressing daily. May start WVAC to sites once less than 20% slough. [ x] Optimize Nutrition and Glycemic Control [ x] Pressure relieving inte rventions (Low Air Mattress, Prevalon boot, Turn q2h ) [ x] Nursing to implement impaired skin integrit y care plan as per skin care protocol Coordinattion of care D/W [ ] Other MD's [ x ] P atient [ ] Family [ ] Nursing [ ] Case Management at 2044 RPT #:[id number] END OF REPORT 2020-05-28 11:52:00-00:00 [facility] ([facility]) Wound Care Progress Note REPORT#:[id number] REPORT STATUS: Signed DATE:05/28/20 TIME: 1151 PATIENT: DARIEN GROSSMAN UNIT #: [id number] ROOM/BED: [place] [address] : 45 AGE: 74 SEX: M ATTEND: Sekou Curtis MD ADM AUTHOR: Nicky Herron NP * ALL edits or amendments must be made on the C-Note/computer document * Nicky Herron. 05/28/20 1152: Subjective Chief Complaint: FU R AKA wounds; c/o pain at stump Objective General VS: Last Documented: Result Date Time Pulse Ox 96 05/28 814 B/P 106/49 05/28 814 B/P Mean 68.0 05/28 814 Temp 37.0 05/28 814 Pulse 62 05/28 814 Resp 17 05/28 814 O2 Delivery Room air 05/24 1937 PATIENT WEIGHT: Weight (lb): 171 Weight (oz): 12.16 Weight (kg): 77.909 Medications: Active Meds + DC'd Last 24 Hrs Hydrocodone Bitart/Acetaminophen 1 TAB Q4H PRN P RN PO Sertraline HCl 25 MG BEDTIME PO Albumin Human 12.5 GM ASDIR PRN IV Lidocaine HCl 0.5 ML ASDIR PRN I-DERMAL (CKD) Mannitol 12.5 GM ASDIR PRN IV Sodium Chloride 2,000 ML ASDIR PRN IV Sodium Chloride 10 ML ASDIR PRN IV Sodium Chloride 250 ML ASDIR PRN IV Piperacillin Sod/Tazobactam Sod 3.375 GM Q12H IV Sodium Chloride 100 ML Collagenase 1 APPLIC DAILY TOPICAL Lidocaine 1 PATCH DAILY TOPICAL Amitriptyline HCl 10 MG BEDTIME PO Triamcinolone Acetonide 40 MG PROCEDURE IM (CKD) Aspirin 81 MG DAILY PO Clopidogrel Bisulfate 75 MG DAILY PO Furosemide 40 MG DAILY PO Polyethylene Glycol 17 GM DAILY PO Senna 1 TAB DAILY PO (CKD) Venlafaxine HCl 75 MG DAILY PO Acetaminophen 650 MG Q6H PRN PRN PO Hydralazine HCl 10 MG Q6H PRN PRN PO Ondansetron HCl 4 MG TID PRN PRN SL Heparin Sodium 5,000 UNIT Q8H SUBQ Epoetin Donny-epbx 4,000 UNIT TuThSa@2100 SUBQ Gabapentin 300 MG BEDTIME PO Metoprolol Tartrate 25 MG BID PO Trazodone HCl 150 MG BEDTIME PO Zolpidem Tartrate 5 MG BEDTIME PRN PRN PO Physical Exam Skin: R AKA wound dehiscence on both medial late ral ends of stump ( abt 0.5x0.5x0.2 cm) w/ less slough; few superficial dehiscence areas at entire incision site. Minimal erythema @ medial aspect. Diagnosis, Assessment Plan Free Text A P: Right AKA stump cellulitis, w wound dehiscence- ( sp aspiration culture by IR of loculated fluid collection ) ; Superficial cx : Pseudomonas (R-Merrem), and CoN. Aspirate Cx neg. On IV Zosyn per ID. Santyl with xeroform to dehisced sites , cover w ith foam dressing daily. May start WVAC to sites once less than 20% slough. [ x] Optimize Nutrition and Glycemic Control [ x] Pressure relieving inte rventions (Low Air Mattress, Prevalon boot, Turn q2h ) [ x] Nursing to implement impaired skin integrit y care plan as per skin care protocol Coordinattion of care D/W [ ] Other MD's [ x ] P atient [ ] Family [ ] Nursing [ ] Case Management Shaila Gilbert 05/29/203: Diagnosis, Assessment Plan Additional comments: All charts, labs, and imaging studies w ere reviewed. I agree with the PA/MONOGRAM MAKER's findings, exam, and plan. at 2044 RPT #:[id number] END OF REPORT 2020-05-28 11:52:00-00:00 [facility] ([facility] Wound Care Progress Note REPORT#:[id number] REPORT STATUS: Signed DATE:05/28/20 TIME: 1152 PATIENT: DARIEN GROSSMAN UNIT #: [id number] ROOM/BED: [place] [address] : 45 AGE: 74 SEX: M ATTEND: Rosa Curtis MD ADM AUTHOR: Nicky Herron NP * ALL edits or amendments must be made on the C-Note/computer document * Nicky Herron. 05/28/20 1152: Subjective Chief Complaint: FU R AKA wounds; c/o pain at stump Objective General VS: Last Documented: Result Date Time Pulse Ox 96 05/29 0715 B/P 106/49 05/28 0815 B/P Mean 68.0 05/28 0815 Temp 37.0 05/28 0815 Pulse 62 05/28 0815 Resp 17 05/28 814 O2 Delivery Room air 05/24 1937 PATIENT WEIGHT: Weight (lb): 171 Weight (oz): 12.16 Weight (kg): 77.909 Medications: Active Meds + DC'd Last 24 Hrs Hydrocodone Bitart/Acetaminophen 1 TAB Q4H PRN P RN PO Sertraline HCl 25 MG BEDTIME PO Albumin Human 12.5 GM ASDIR PRN IV Lidocaine HCl 0.5 ML ASDIR PRN I-DERMAL (CKD) Mannitol 12.5 GM ASDIR PRN IV Sodium Chloride 2,000 ML ASDIR PRN IV Sodium Chloride 10 ML ASDIR PRN IV Sodium Chloride 250 ML ASDIR PRN IV Piperacillin Sod/Tazobactam Sod 3.375 GM Q12H IV Sodium Chloride 100 ML Collagenase 1 APPLIC DAILY TOPICAL Lidocaine 1 PATCH DAILY TOPICAL Amitriptyline HCl 10 MG BEDTIME PO Triamcinolone Acetonide 40 MG PROCEDURE IM (CKD) Aspirin 81 MG DAILY PO Clopidogrel Bisulfate 75 MG DAILY PO Furosemide 40 MG DAILY PO Polyethylene Glycol 17 GM DAILY PO Senna 1 TAB DAILY PO (CKD) Venlafaxine HCl 75 MG DAILY PO Acetaminophen 650 MG Q6H PRN PRN PO Hydralazine HCl 10 MG Q6H PRN PRN PO Ondansetron HCl 4 MG TID PRN PRN SL Heparin Sodium 5,000 UNIT Q8H SUBQ Epoetin Donny-epbx 4,000 UNIT TuThSa@2100 SUBQ Gabapentin 300 MG BEDTIME PO Metoprolol Tartrate 25 MG BID PO Trazodone HCl 150 MG BEDTIME PO Zolpidem Tartrate 5 MG BEDTIME PRN PRN PO Physical Exam Skin: R AKA wound dehiscence on both medial late ral ends of stump ( abt 0.5x0.5x0.2 cm) w/ less slough; few superficial dehiscence areas at entire incision site. Minimal erythema @ medial aspect. Diagnosis, Assessment Plan Free Text A P: Right AKA stump cellulitis, w wound dehiscence- ( sp aspiration culture by IR of loculated fluid collection ) ; Superficial cx : Pseudomonas (R-Merrem), and CoN. Aspirate Cx neg. On IV Zosyn per ID. Santyl with xeroform to dehisced sites , cover w ith foam dressing daily. May start WVAC to sites once less than 20% slough. [ x] Optimize Nutrition and Glycemic Control [ x] Pressure relieving inte rventions (Low Air Mattress, Prevalon boot, Turn q2h ) [ x] Nursing to implement impaired skin integrit y care plan as per skin care protocol Coordinattion of care D/W [ ] Other MD's [ x ] P atient [ ] Family [ ] Nursing [ ] Case Management Shaila Gilbert 05/29/202132: Diagnosis, Assessment Plan Additional comments: All charts, labs, and imaging studies w ere reviewed. I agree with the PA/MONOGRAM MAKER's findings, exam, and plan. at 2044 at 2134 RPT #:[id number] END OF REPORT 2020-05-28 11:10:00-00:00 [facility] ([facility] Pain Management Progress Note REPORT#:[id number] REPORT STATUS: Signed DATE:05/28/20 TIME: 1110 PATIENT: DARIEN GROSSMAN UNIT #: [id number] ROOM/BED: [place] [address] : 45 AGE: 74 SEX: M ATTEND: Rosa Curtis MD ADM AUTHOR: Sohail Wells * ALL edits or amendments must be made on the C-Note/computer document * Subjective Chief complaint: Patient seen and examined. Chart and MAR reviewe d. Patient has no new complaints Patient being seen for Left thigh pain, lateral femoral cutaneous neuralgia, Right AKA pain, Peripheral neuropathy , phantom limb pain right lower extremity, Patient states symptoms are manageable with use of current medications. No fever/chills, chest pain, dyspnea, no emesis, pruritus, or hallucinations. 14-point ROS undertaken unremarkable except as n oted. Objective General VS/I O: Vital Signs Date Temp Pulse Resp B/P B/P Mean Pulse Ox FiO2 05/27-05/28 36.5-37.2 60-64 16-18 106-144/49-66 68.0-91.6 95-97 Last Documented: Result Date Time Pulse Ox 96 05/28 08 B/P 106/49 05/28 814 B/P Mean 68.0 05/28 814 Temp 37.0 05/28 08 Pulse 62 05/28 08 Resp 17 05/28 814 O2 Delivery Room air 05/24 1938 24 hour I O ending at 0700: 05/28 0700 05/27 1900 Intake Total 200 0 Output Total 2200 Balance -1999 0 Intake, Oral 200 Intake, Oral 0 Supplement Number Voids 1 Output, 2200 Hemodialysis PATIENT WEIGHT: Weight (lb): 171 Weight (oz): 12.16 Weight (kg): 77.909 Medications: Active Meds + DC'd Last 24 Hrs Hydrocodone Bitart/Acetaminophen 1 TAB Q4H PRN P RN PO Sertraline HCl 25 MG BEDTIME PO Albumin Human 12.5 GM ASDIR PRN IV Lidocaine HCl 0.5 ML ASDIR PRN I-DERMAL (CKD) Mannitol 12.5 GM ASDIR PRN IV Sodium Chloride 2,000 ML ASDIR PRN IV Sodium Chloride 10 ML ASDIR PRN IV Sodium Chloride 250 ML ASDIR PRN IV Piperacillin Sod/Tazobactam Sod 3.375 GM Q12H IV Sodium Chloride 100 ML Collagenase 1 APPLIC DAILY TOPICAL Lidocaine 1 PATCH DAILY TOPICAL Amitriptyline HCl 10 MG BEDTIME PO Triamcinolone Acetonide 40 MG PROCEDURE IM (CKD) Aspirin 81 MG DAILY PO Clopidogrel Bisulfate 75 MG DAILY PO Furosemide 40 MG DAILY PO Polyethylene Glycol 17 GM DAILY PO Senna 1 TAB DAILY PO (CKD) Venlafaxine HCl 75 MG DAILY PO Acetaminophen 650 MG Q6H PRN PRN PO Hydralazine HCl 10 MG Q6H PRN PRN PO Ondansetron HCl 4 MG TID PRN PRN SL Heparin Sodium 5,000 UNIT Q8H SUBQ Epoetin Donny-epbx 4,000 UNIT TuThSa@2100 SUBQ Gabapentin 300 MG BEDTIME PO Metoprolol Tartrate 25 MG BID PO Trazodone HCl 150 MG BEDTIME PO Zolpidem Tartrate 5 MG BEDTIME PRN PRN PO Physical Exam General appearance: alert, awake, oriented, no a cute distress, pleasant Head/eyes: atraumatic, normocephalic, normal con junctiva/sclera ENT: normal pharynx, moist mucosal membranes Neck: full range of motion, non-tender, supple/n o meningismus Cardiovascular: regular rate rhythm Respiratory: clear to auscultation, no distress, aerating well Abdomen quadrants LLQ normal bowel sounds, LUQ normal roberto l sounds, RLQ normal bowel sounds, RUQ normal bowel sounds Extremities: moves all, no edema, pedal pulses, right AKA Neuro/CUSTODIAN MANAGER: no motor deficits, no sensory deficit s, CNII-XII grossly intact Skin: dry, intact, no rash Lymphatics: no lymphadenopathy Psychiatry: normal mood Results Findings/data: NO new Labs or Radiology Diagnosis, Assessment Plan Free text A P: A/P: Patient is a 74 year old male presenting with: Past medical history: Subdural hematoma, CAD, en d-stage renal disease on HD, hypertension, hyperlipidemia, septic art hritis of prosthesis of previous right TKA, depression Past surgical history: Right TKR, right AKA, cor onary stents Social history: Negative for alcohol, tobacco, i llicit drug use Family history: Not relevant Allergies: Penicillin, iodine Left thigh pain, lateral femoral cutaneous neura lgia -We offered to perform a left lateral femoral cu taneous nerve block to see if this helps with the pain. Patient declined -05/24-decrease Otis 10/325 to Otis 7.5/325 james ry 4 as needed -Lidoderm patch to left thigh daily -Otis 7.5/325 mg oral every 4 hours as needed f or pain -manageable Right AKA discomfort -05/23/2020-CT lower extremity - Above th e knee amputation changes with complex soft tissue fluid collection at the stum p site. There is loss of fatty medullary density at the stump site. Osteomyelitis is not excluded. C orrelate with MRI as clinically indicated. -IV antibiotics , appreciate infectious disease input -Pain medications as outlined above Peripheral neuropathy, phantom limb pain right l ower extremity -Gabapentin 300 mg oral at bedtime -amitriptyline 10 mg oral at bedtime -stable Antalgic/impaired gait -PT/OT -Gait training, improve endurance and strength -Transfer training -PMR following Falls -Fall precautions End-stage renal disease on hemodialysis -Nephrology following Subdural hematoma -Monitor mental status with opioids and other se dative medications Depression -monitoring Constipation -Monitor closely while patient is using opioid n arcotics -MiraLAX 17 g p.o. daily -Senna 1 tab p.o. daily All pertinent diagnostics/labs from the last 24 hours and during the course of the admission were reviewed. Plan discussed with the patient and the nurse. A ll questions were answered. Patient will be monitored for deleteriou s side effects associated with opioids and sedative medications. Me dications will be adjusted further clinical course. Risks versus benefits of opioid medications were reviewed to include, but not limited to respiratory depression, accid ental overdose, altered mental status, sudden , constipation which could result in bowel obstruction, seizures, withdrawal, dependency/addiction, risk for falls . Goals: Daily pain control. Case discussed with Dr Lofton whom agrees. 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: Total Prescriptions 28 Total Private Pay 0 Total Prescribers 4 Total Pharmacies 1 05/06/2020 1 05/06/2020 HYDROCODONE-ACETAMIN 10- 325 MG 30.0 7 [facility] SPA [id number] [facility] ([id number]) 0 42.86 MME Comm Ins [place] 04/20/2020 1 12/24/2019 ZOLPIDEM TARTRATE 10 MG TABLET 30.0 30 PE LAT [id number] [facility] ([id number]) 4 Comm Ins [place] 03/21/2020 1 12/24/2019 ZOLPIDEM TARTRATE 10 MG TABLET 30.0 30 PE LAT [id number] [facility] ([id number]) 3 Comm Ins [place] 02/20/2020 1 12/24/2019 ZOLPIDEM TARTRATE 10 MG TABLET 30.0 30 PE LAT [id number] [facility] ([id number]) 2 Comm Ins [place] 01/21/2020 1 12/24/2019 ZOLPIDEM TARTRATE 10 MG TABLET 30.0 30 PE LAT [id number] [facility] ([id number]) 1 Comm Ins [place] 12/24/2019 1 12/24/2019 ZOLPIDEM TARTRATE 10 MG TABLET 30.0 30 PE LAT [id number] [facility] ([id number]) 0 Comm Ins [place] 11/25/2019 1 07/07/2019 ZOLPIDEM TARTRATE 10 MG TABLET 30.0 30 PE LAT [id number] [facility] ([id number]) 5 Comm Ins [id number] ([id number]) [address] [place] [id number] at 1111 RPT #:[id number] END OF REPORT 2020-05-28 11:10:00-00:00 [facility] Pain Management Progress Note REPORT#:[id number] REPORT STATUS: Signed DATE:05/28/20 TIME: 1110 PATIENT: DARIEN GROSSMAN UNIT #: [id number] ROOM/BED: [place] [address] : 45 AGE: 74 SEX: M ATTEND: Rosa Curtis MD ADM AUTHOR: Sohail Wells * ALL edits or amendments must be made on the C-Note/computer document * Subjective Chief complaint: Patient seen and examined. Chart and VIJAYA reyes Patient has no new complaints Patient being seen for Left thigh pain, lateral femoral cutaneous neuralgia, Right AKA pain, Peripheral neuropathy , phantom limb pain right lower extremity, Patient states symptoms are manageable with use of current medications. No fever/chills, chest pain, dyspnea, no emesis, pruritus, or hallucinations. 14-point ROS undertaken unremarkable except as n oted. Objective General VS/I O: Vital Signs Date Temp Pulse Resp B/P B/P Mean Pulse Ox FiO2 05/27-05/28 36.5-37.2 60-64 16-18 106-144/49-66 68.0-91.6 95-97 Last Documented: Result Date Time Pulse Ox 96 05/28 0815 B/P 106/49 05/28 0815 B/P Mean 68.0 05/28 0815 Temp 37.0 05/28 0815 Pulse 62 05/28 0815 Resp 17 05/28 0815 O2 Delivery Room air 05/24 1938 24 hour I O ending at 0700: 05/28 0700 05/27 1900 Intake Total 200 0 Output Total 2200 Balance -2000 0 Intake, Oral 200 Intake, Oral 0 Supplement Number Voids 1 Output, 2200 Hemodialysis PATIENT WEIGHT: Weight (lb): 171 Weight (oz): 12.16 Weight (kg): 77.909 Medications: Active Meds + DC'd Last 24 Hrs Hydrocodone Bitart/Acetaminophen 1 TAB Q4H PRN P RN PO Sertraline HCl 25 MG BEDTIME PO Albumin Human 12.5 GM ASDIR PRN IV Lidocaine HCl 0.5 ML ASDIR PRN I-DERMAL (CKD) Mannitol 12.5 GM ASDIR PRN IV Sodium Chloride 2,000 ML ASDIR PRN IV Sodium Chloride 10 ML ASDIR PRN IV Sodium Chloride 250 ML ASDIR PRN IV Piperacillin Sod/Tazobactam Sod 3.375 GM Q12H IV Sodium Chloride 100 ML Collagenase 1 APPLIC DAILY TOPICAL Lidocaine 1 PATCH DAILY TOPICAL Amitriptyline HCl 10 MG BEDTIME PO Triamcinolone Acetonide 40 MG PROCEDURE IM (CKD) Aspirin 81 MG DAILY PO Clopidogrel Bisulfate 75 MG DAILY PO Furosemide 40 MG DAILY PO Polyethylene Glycol 17 GM DAILY PO Senna 1 TAB DAILY PO (CKD) Venlafaxine HCl 75 MG DAILY PO Acetaminophen 650 MG Q6H PRN PRN PO Hydralazine HCl 10 MG Q6H PRN PRN PO Ondansetron HCl 4 MG TID PRN PRN SL Heparin Sodium 5,000 UNIT Q8H SUBQ Epoetin Donny-epbx 4,000 UNIT TuThSa@2100 SUBQ Gabapentin 300 MG BEDTIME PO Metoprolol Tartrate 25 MG BID PO Trazodone HCl 150 MG BEDTIME PO Zolpidem Tartrate 5 MG BEDTIME PRN PRN PO Physical Exam General appearance: alert, awake, oriented, no a cute distress, pleasant Head/eyes: atraumatic, normocephalic, normal con junctiva/sclera ENT: normal pharynx, moist mucosal membranes Neck: full range of motion, non-tender, supple/n o meningismus Cardiovascular: regular rate rhythm Respiratory: clear to auscultation, no distress, aerating well Abdomen quadrants LLQ normal bowel sounds, LUQ normal roberto l sounds, RLQ normal bowel sounds, RUQ normal bowel sounds Extremities: moves all, no edema, pedal pulses, right AKA Neuro/CUSTODIAN MANAGER: no motor deficits, no sensory deficit s, CNII-XII grossly intact Skin: dry, intact, no rash Lymphatics: no lymphadenopathy Psychiatry: normal mood Results Findings/data: NO new Labs or Radiology Diagnosis, Assessment Plan Free text A P: A/P: Patient is a 74 year old male presenting with: Past medical history: Subdural hematoma, CAD, en d-stage renal disease on HD, hypertension, hyperlipidemia, septic art hritis of prosthesis of previous right TKA, depression Past surgical history: Right TKR, right AKA, cor onary stents Social history: Negative for alcohol, tobacco, i llicit drug use Family history: Not relevant Allergies: Penicillin, iodine Left thigh pain, lateral femoral cutaneous neura lgia -We offered to perform a left lateral femoral cu taneous nerve block to see if this helps with the pain. Patient declined -05/24-decrease Otis 10/325 to Otis 7.5/325 james ry 4 as needed -Lidoderm patch to left thigh daily -Otis 7.5/325 mg oral every 4 hours as needed f or pain -manageable Right AKA discomfort -05/23/2020-CT lower extremity - Above th e knee amputation changes with complex soft tissue fluid collection at the stum p site. There is loss of fatty medullary density at the stump site. Osteomyelitis is not excluded. C orrelate with MRI as clinically indicated. -IV antibiotics , appreciate infectious disease input -Pain medications as outlined above Peripheral neuropathy, phantom limb pain right l ower extremity -Gabapentin 300 mg oral at bedtime -amitriptyline 10 mg oral at bedtime -stable Antalgic/impaired gait -PT/OT -Gait training, improve endurance and strength -Transfer training -PMR following Falls -Fall precautions End-stage renal disease on hemodialysis -Nephrology following Subdural hematoma -Monitor mental status with opioids and other se dative medications Depression -monitoring Constipation -Monitor closely while patient is using opioid n arcotics -MiraLAX 17 g p.o. daily -Senna 1 tab p.o. daily All pertinent diagnostics/labs from the last 24 hours and during the course of the admission were reviewed. Plan discussed with the patient and the nurse. A ll questions were answered. Patient will be monitored for deleteriou s side effects associated with opioids and sedative medications. Me dications will be adjusted further clinical course. Risks versus benefits of opioid medications were reviewed to include, but not limited to respiratory depression, accid ental overdose, altered mental status, sudden , constipation which could result in bowel obstruction, seizures, withdrawal, dependency/addiction, risk for falls . Goals: Daily pain control. Case discussed with Dr Lofton whom agrees. 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: Total Prescriptions 28 Total Private Pay 0 Total Prescribers 4 Total Pharmacies 1 05/06/2020 1 05/06/2020 HYDROCODONE-ACETAMIN 10- 325 MG 30.0 7 [facility] SPA [id number] [facility] (1602) 0 42.86 MME Comm Ins [place] 04/20/2020 1 12/24/2019 ZOLPIDEM TARTRATE 10 MG TABLET 30.0 30 PE LAT [id number] [facility] (1602) 4 Comm Ins [place] 03/21/2020 1 12/24/2019 ZOLPIDEM TARTRATE 10 MG TABLET 30.0 30 PE LAT [id number] [facility] (1602) 3 Comm Ins [place] 02/20/2020 1 12/24/2019 ZOLPIDEM TARTRATE 10 MG TABLET 30.0 30 PE LAT [id number] [facility] (1602) 2 Comm Ins [place] 01/21/2020 1 12/24/2019 ZOLPIDEM TARTRATE 10 MG TABLET 30.0 30 PE LAT [id number] [facility] (1602) 1 [place] Ins [place] 12/24/2019 1 12/24/2019 ZOLPIDEM TARTRATE 10 MG TABLET 30.0 30 PE LAT [id number] [facility] (1602) 0 Comm Ins [place] 11/25/2019 1 07/07/2019 ZOLPIDEM TARTRATE 10 MG TABLET 30.0 30 PE LAT [id number] [facility] (1602) 5 Comm Ins [place] [id number] ([id number]) [address] [place] [id number] at 1111 Electronically Signed by Herman Lofton MD on 0 05/29/20 at 1829 RPT #:[id number] END OF REPORT 2020-05-28 06:40:00-00:00 [facility] Rehab Progress Note REPORT#:[id number] REPORT STATUS: Signed DATE:05/28/20 TIME: 06 PATIENT: DARIEN GROSSMAN UNIT #: [id number] ROOM/BED: [place] [address] : 45 AGE: 74 SEX: M ATTEND: Rosa Curtis MD ADM AUTHOR: Clint Dunaway * ALL edits or amendments must be made on the el ectronic/computer document * Clint Dunaway PA-C 05/28/20 0640: Subjective Chief complaint: Rehab follow-up Generalized weakness Patient doing well Affect is improved Slept well BM+ Denies PATEL/N/V/D 14 systems reviewed and neg. except that above. Objective General VS: Vital Signs: Date Time Temp Pulse Resp B/P B/P Pulse O2 O2 F low FiO2 Mean Ox Delivery Rate 05/273 99.0 64 18 117/64 81.3 97 05/27 1418 97.7 60 16 144/66 91.6 95 05/27 0727 97.3 54 16 109/60 76.3 94 PATIENT WEIGHT: Weight (lb): 171 Weight (oz): 12.16 Weight (kg): 77.909 Medications: Active Meds + DC'd Last 24 Hrs Hydrocodone Bitart/Acetaminophen 1 TAB Q4H PRN P RN PO Sertraline HCl 25 MG BEDTIME PO Albumin Human 12.5 GM ASDIR PRN IV Lidocaine HCl 0.5 ML ASDIR PRN I-DERMAL (CKD) Mannitol 12.5 GM ASDIR PRN IV Sodium Chloride 2,000 ML ASDIR PRN IV Sodium Chloride 10 ML ASDIR PRN IV Sodium Chloride 250 ML ASDIR PRN IV Piperacillin Sod/Tazobactam Sod 3.375 GM Q12H IV Sodium Chloride 100 ML Collagenase 1 APPLIC DAILY TOPICAL Lidocaine 1 PATCH DAILY TOPICAL Amitriptyline HCl 10 MG BEDTIME PO Triamcinolone Acetonide 40 MG PROCEDURE IM (CKD) Aspirin 81 MG DAILY PO Clopidogrel Bisulfate 75 MG DAILY PO Furosemide 40 MG DAILY PO Polyethylene Glycol 17 GM DAILY PO Senna 1 TAB DAILY PO (CKD) Venlafaxine HCl 75 MG DAILY PO Acetaminophen 650 MG Q6H PRN PRN PO Hydralazine HCl 10 MG Q6H PRN PRN PO Ondansetron HCl 4 MG TID PRN PRN SL Heparin Sodium 5,000 UNIT Q8H SUBQ Epoetin Donny-epbx 4,000 UNIT TuThSa@2100 SUBQ Gabapentin 300 MG BEDTIME PO Metoprolol Tartrate 25 MG BID PO Trazodone HCl 150 MG BEDTIME PO Zolpidem Tartrate 5 MG BEDTIME PRN PRN PO Functional Progress Functional progress: PT daily note comment: S:PATIENT AGREEABLE FOR THERAPY. O: PATIENT PERFORMED ROLLING WITH IND, SUPINE T O SIT WITH IND, SIT TO SUPINE WITH IND. Pt. INSTRUCTED ON STAND PIVOT TRANSFER WITH SBA, VC TO MOVE WC LEG REST OUT T HE WAY FOR SAFETY. Pt. PERFORMED SIT TO STAND WITH IND. Pt . AMBULATED WITH RW FOR 10 FT WITH IND, 10 FT UNEVEN SURFAC E WITH SBA DUE TO SOME UNSTEADINESS, 50 FT WITH 2 TURNS AN D SBA W/ VC FOR SLOW TURNS WITH RW, 150 FT W/ RW W/ SBA DUE TO FATIGUE AND Pt. NEEDING WC TO TAKE REST. Pt. PERFORMED 1 STEP WITH RW AND SBA DUE TO UNSTEADINESS WHEN BRINGING UP RW. Pt. PERFORMED WCMOBILITY FOR 50 FT W/ 2 TURNS, 150 FT , 300FT WITH IND. A: PATIENT PERFORMED TREATMENT WELL. HOWEVER, SOME FEAR NOTED IN PATIENT WHEN IT COMES TO TRANSFERS, AMBULATING ON UNEVEN SURFACES AND GOING UP ONE STEP. Pt. EDUCATED ON SAFETY DURING TREATMENT. P: CONTINUE PLAN OF CARE. Physical Exam General appearance: alert, awake Psych: alert, normal affect, oriented x 3 HEENT: anicteric, mucosal membranes moist, pupil s reactive to light, sclera clear, NC/AT Neck: non-tender, supple, no JVD Cardiovascular: regular rate rhythm, S1/S2, no m urmur Respiratory: aerating well, clear bilaterally, c lear to auscultation Abdomen: bowel sounds presen t, non-distended, soft, non-tender, no mass palpable Skin: dry, normal temperature, L AKA incision w 2 open areas of dehiscence-no drainage, no odor. Musculoskeletal - general: Musculoskeletal - general: normal tone, no swel ling, MMT moves all against gravity. BUE 4/5, SHORT PIECE HANDLER GOOD, RHF 3+/5, LLE 4/5. L calf NT, No cords. TTP L lateral thigh above trochanter bursae. Neuro/CUSTODIAN MANAGER: alert, oriented X 3, CNII-XII intact, normal speech, reflexes equal bilat Results Findings/Data: Laboratory Tests 05/27 0400 Chemistry Sodium (134 - 147 mEq/L) 138 Potassium (3.4 - 5.0 mEq/L) 3.7 Chloride (100 - 108 mEq/L) 103 Carbon Dioxide (21 - 33 mEq/l) 27 Anion Gap (0 - 20) 12 BUN (7 - 18 mg/dL) 41 H Creatinine (0.6 - 1.3 mg/dL) 4.4 H Glomerular Filtr Rate (70 - 80) 13.2 L Glucose (70 - 110 mg/dL) 84 Calcium (8.0 - 10.5 mg/dL) 9.3 Diagnosis, Assessment Plan Free Text A P: Assessment: Mechanical fall TBI with SDH, no surgical intervention required Stable acute L parafalcine SDH extending into the L tentorium with min left to right midline shift 04/03-Recent right AKA, previous right TKA compli cated by infection Impaired mobility and gait Generalized weakness Frequent falls 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 15 mL of blood-tinged fluid. 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 Unspecified anxiety disorder. Plan: -Comprehensive inpatient rehabilitation with physical, occupational and speech therapy 3 hours a day for 5 to 6 days per week-2 05/18 rehabilitation physician supervision-03/09 rehabilitat ion nursing care-Case management for safe discharge planning-Rehab MD to monitor comorbidities and f unctional progress. -Decubitus prevention-protective hydrating lotio n-turn every 2 hours-offload -Right AKA wound dehiscence- wound care consulted-Dr. Gilbert-for now Xeroform and Mepilex -Consult new life brace management/prosthetics -Strict fall and safety precaution -DVT prophylaxis-SCDs and subcutaneous heparin -GI prophylaxis-Protonix -Early mobilization-OOB to chair -Work on bed mobility, transfer training , ADLs, pre-gait and gait exercises as tolerable. 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 intake, check albumin 3.2 and prealbumin 13.1, 14.3, dietary consult, protein supplements . -Await consultants input, internal medicine, nep hrology, pain management, ID, wound care -Domenica for a total of 7 days-to be completed to efrain 05/21-completed -Continue right AKA incisional dressing care-wou nds looking better -Prosthetic company consulted for evaluation -Continue aspirin and Plavix-Lasix -History of depression/anxie ty continue BuSpar, Vinodyrel, Effexor-office asst bring in patient's home Pristiq -Monitor hemoglobin on Epogen -Hemodialysis as per nephrology-Saturday -Blood pressure currently stable on current medi cation -Renal diet -Left hip pain-x-ray of the left hip and pelvis showed no acute osseous fracture. The hip joint spaces are preserved-sat itor -Elevated WBC-possible infec amado right NASEEM-culture wound pending-no fever-repeat CBC 05/21-given patient's history of staph infect ion prior will consult ID. Patient seen by ID-patient placed on vancomycin now discontinued -Right AKA wound dehiscence- Culture done-rare gram-negative bacilli-Santyl with xeroform to dehisced sites cover with foam dress ing daily-As per wound care -Right AKA stump cellulitis-R/O fluid collection , check CT extremity without contrast-Superficial cx: Pseudomonas (R-Merrem), and CoNS-ESR 114/CRP 192 significant elevated-On Cefepime, change to Zosy n as per ID -05/23-CT of RLE-CT(+) 6//4cm loculated fluid co llection Infectious disease believes this is more of a seroma. I discussed w ith ID Dr. Sierra and he agrees with vascular surgery consul tation. I would like to treat this conservatively as possible since patient on rehab. Continue Zosyn as per ID-HAS MIDLINE -05/24 ID ordered special procedures IR aspiratio n of fluid -Depression worse-patient's office manag er to bring in patient's home Prestiq- psychiatry consult-started o n Zoloft-monitor closely-patient upset and depressed and became more depressed after he learned about the results of the CT. -Depression improved-patient being treated for m ajor depression recurrent and started on Zoloft-wean venlafaxine over time. Di scontinue buspirone. Continue trazodone and Ambien for insomnia-as per psychia try 05/24-Technically successful ultrasound-g uided aspiration of a right knee stump collection. 15 mL of blood-tinged fluid. Culture s pending-cont abx x 1 week total if aspirte cx negative as per ID -Patient seen by vascular surgery Dr. Bowling-no s urgical intervention at this time wait for cultures and continue antibiotics. -Labs reviewed -Hemoglobin better. On Epogen 3 times weekly -Renal following kidney function -Continue current medications -Continue brain injury and amputation IRF. Atilio carrillo progress PM R Please see team note. Plan and goals discussed with the patient. I agree with the teams finding ELOS- [05/31] DC-Home with family-HH DME-HAS WC, TT 35 min>50% with tiffanie carrillo with patient about progress, open wounds to right AKA, continue IV antibiotics, rehab plan of care , goals, therapies, progress, needs, and medical issues, examination. MAR and EMR reviewed. All Questions answered. Rehab attestation: Face to face exam completed. Treatment plan disc ussed with patient. Meets continued stay criteria. Agree with interdiscipl inary treatment plan. Sekou Curtis 05/28/20 1629: Attestations Physician Attestation Agree w/findings plan: Pt seen an evaluated by me. Agree with the findi ngs and plan as documented by ZIA Granado. at 2040 RPT #:[id number] END OF REPORT 2020-05-28 06:40:00-00:00 [facility] REPORT#:[id number] REPORT STATUS: Signed DATE:05/28/20 TIME: 0640 PATIENT: DARIEN GROSSMAN UNIT #: [id number] ROOM/BED: [place] [address] : 45 AGE: 74 SEX: M ATTEND: Rosa Curtis MD ADM AUTHOR: Clint Dunaway * ALL edits or amendments must be made on the C-Note/computer document * Clint Dunaway PA-C 05/28/20 0640: Subjective Chief complaint: Rehab follow-up Generalized weakness Patient doing well Affect is improved Slept well BM+ Denies PATEL/N/V/D 14 systems reviewed and neg. except that above. Objective General VS: Vital Signs: Date Time Temp Pulse Resp B/P B/P Pulse O2 O2 F low FiO2 Mean Ox Delivery Rate 05/27 2102 99.0 64 18 117/64 81.3 97 05/27 1418 97.7 60 16 144/66 91.6 95 05/27 0727 97.3 54 16 109/60 76.3 94 PATIENT WEIGHT: Weight (lb): 171 Weight (oz): 12.16 Weight (kg): 77.909 Medications: Active Meds + DC'd Last 24 Hrs Hydrocodone Bitart/Acetaminophen 1 TAB Q4H PRN P RN PO Sertraline HCl 25 MG BEDTIME PO Albumin Human 12.5 GM ASDIR PRN IV Lidocaine HCl 0.5 ML ASDIR PRN I-DERMAL (CKD) Mannitol 12.5 GM ASDIR PRN IV Sodium Chloride 2,000 ML ASDIR PRN IV Sodium Chloride 10 ML ASDIR PRN IV Sodium Chloride 250 ML ASDIR PRN IV Piperacillin Sod/Tazobactam Sod 3.375 GM Q12H IV Sodium Chloride 100 ML Collagenase 1 APPLIC DAILY TOPICAL Lidocaine 1 PATCH DAILY TOPICAL Amitriptyline HCl 10 MG BEDTIME PO Triamcinolone Acetonide 40 MG PROCEDURE IM (CKD) Aspirin 81 MG DAILY PO Clopidogrel Bisulfate 75 MG DAILY PO Furosemide 40 MG DAILY PO Polyethylene Glycol 17 GM DAILY PO Senna 1 TAB DAILY PO (CKD) Venlafaxine HCl 75 MG DAILY PO Acetaminophen 650 MG Q6H PRN PRN PO Hydralazine HCl 10 MG Q6H PRN PRN PO Ondansetron HCl 4 MG TID PRN PRN SL Heparin Sodium 5,000 UNIT Q8H SUBQ Epoetin Donny-epbx 4,000 UNIT TuThSa@2100 SUBQ Gabapentin 300 MG BEDTIME PO Metoprolol Tartrate 25 MG BID PO Trazodone HCl 150 MG BEDTIME PO Zolpidem Tartrate 5 MG BEDTIME PRN PRN PO Functional Progress Functional progress: PT daily note comment: S:PATIENT AGREEABLE FOR THERAPY. O: PATIENT PERFORMED ROLLING WITH IND, SUPINE T O SIT WITH IND, SIT TO SUPINE WITH IND. Pt. INSTRUCTED ON STAND PIVOT TRANSFER WITH SBA, VC TO MOVE WC LEG REST OUT T HE WAY FOR SAFETY. Pt. PERFORMED SIT TO STAND WITH IND. Pt . AMBULATED WITH RW FOR 10 FT WITH IND, 10 FT UNEVEN SURFAC E WITH SBA DUE TO SOME UNSTEADINESS, 50 FT WITH 2 TURNS AN D SBA W/ VC FOR SLOW TURNS WITH RW, 150 FT W/ RW W/ SBA DUE TO FATIGUE AND Pt. NEEDING WC TO TAKE REST. Pt. PERFORMED 1 STEP WITH RW AND SBA DUE TO UNSTEADINESS WHEN BRINGING UP RW. Pt. PERFORMED WCMOBILITY FOR 50 FT W/ 2 TURNS, 150 FT , 300FT WITH IND. A: PATIENT PERFORMED TREATMENT WELL. HOWEVER, SOME FEAR NOTED IN PATIENT WHEN IT COMES TO TRANSFERS, AMBULATING ON UNEVEN SURFACES AND GOING UP ONE STEP. Pt. EDUCATED ON SAFETY DURING TREATMENT. P: CONTINUE PLAN OF CARE. Physical Exam General appearance: alert, awake Psych: alert, normal affect, oriented x 3 HEENT: anicteric, mucosal membranes moist, pupil s reactive to light, sclera clear, NC/AT Neck: non-tender, supple, no JVD Cardiovascular: regular rate rhythm, S1/S2, no m urmur Respiratory: aerating well, clear bilaterally, c lear to auscultation Abdomen: bowel sounds presen t, non-distended, soft, non-tender, no mass palpable Skin: dry, normal temperature, L AKA incision w 2 open areas of dehiscence-no drainage, no odor. Musculoskeletal - general: Musculoskeletal - general: normal tone, no swel ling, MMT moves all against gravity. BUE 4/5, SHORT PIECE HANDLER GOOD, RHF 3+/5, LLE 4/5. L calf NT, No cords. TTP L lateral thigh above trochanter bursae. Neuro/CUSTODIAN MANAGER: alert, oriented X 3, CNII-XII intact, normal speech, reflexes equal bilat Results Findings/Data: Laboratory Tests 05/27 0400 Chemistry Sodium (134 - 147 mEq/L) 138 Potassium (3.4 - 5.0 mEq/L) 3.7 Chloride (100 - 108 mEq/L) 103 Carbon Dioxide (21 - 33 mEq/l) 27 Anion Gap (0 - 20) 12 BUN (7 - 18 mg/dL) 41 H Creatinine (0.6 - 1.3 mg/dL) 4.4 H Glomerular Filtr Rate (70 - 80) 13.2 L Glucose (70 - 110 mg/dL) 84 Calcium (8.0 - 10.5 mg/dL) 9.3 Diagnosis, Assessment Plan Free Text A P: Assessment: Mechanical fall TBI with SDH, no surgical intervention required Stable acute L parafalcine SDH extending into the L tentorium with min left to right midline shift 04/03-Recent right AKA, previous right TKA compli cated by infection Impaired mobility and gait Generalized weakness Frequent falls 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 15 mL of blood-tinged fluid. 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 Unspecified anxiety disorder. Plan: -Comprehensive inpatient rehabilitation with physical, occupational and speech therapy 3 hours a day for 5 to 6 days per week-2 05/18 rehabilitation physician supervision-03/09 rehabilitat ion nursing care-Case management for safe discharge planning-Rehab MD to monitor comorbidities and f unctional progress. -Decubitus prevention-protective hydrating lotio n-turn every 2 hours-offload -Right AKA wound dehiscence- wound care consulted-Dr. Gilbert-for now Xeroform and Mepilex -Consult new life brace management/prosthetics -Strict fall and safety precaution -DVT prophylaxis-SCDs and subcutaneous heparin -GI prophylaxis-Protonix -Early mobilization-OOB to chair -Work on bed mobility, transfer training , ADLs, pre-gait and gait exercises as tolerable. 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 intake, check albumin 3.2 and prealbumin 13.1, 14.3, dietary consult, protein supplements . -Await consultants input, internal medicine, nep hrology, pain management, ID, wound care -Domenica for a total of 7 days-to be completed to efrain 05/21-completed -Continue right AKA incisional dressing care-wou nds looking better -Prosthetic company consulted for evaluation -Continue aspirin and Plavix-Lasix -History of depression/anxie ty continue Carlyn Dixon Effexor-office asst bring in patient's home Pristiq -Monitor hemoglobin on Epogen -Hemodialysis as per nephrology-Saturday -Blood pressure currently stable on current medi cation -Renal diet -Left hip pain-x-ray of the left hip and pelvis showed no acute osseous fracture. The hip joint spaces are preserved-sat itor -Elevated WBC-possible infec amado right NASEEM-culture wound pending-no fever-repeat CBC 05/21-given patient's history of staph infect ion prior will consult ID. Patient seen by ID-patient placed on vancomycin now discontinued -Right AKA wound dehiscence- Culture done-rare gram-negative bacilli-Santyl with xeroform to dehisced sites cover with foam dress ing daily-As per wound care -Right AKA stump cellulitis-R/O fluid collection , check CT extremity without contrast-Superficial cx: Pseudomonas (R-Merrem), and CoNS-ESR 114/CRP 192 significant elevated-On Cefepime, change to Zosy n as per ID -05/23-CT of RLE-CT(+) 6/6/4cm loculated fluid co llection Infectious disease believes this is more of a seroma. I discussed w ith ID Dr. Sierra and he agrees with vascular surgery consul tation. I would like to treat this conservatively as possible since patient on rehab. Continue Zosyn as per ID-HAS MIDLINE -05/24 ID ordered special procedures IR aspiratio n of fluid -Depression worse-patient's office manag er to bring in patient's home Prestiq- psychiatry consult-started o n Zoloft-monitor closely-patient upset and depressed and became more depressed after he learned about the results of the CT. -Depression improved-patient being treated for m ajor depression recurrent and started on Zoloft-wean venlafaxine over time. Di scontinue buspirone. Continue trazodone and Ambien for insomnia-as per psychia try 05/24-Technically successful ultrasound-g uided aspiration of a right knee stump collection. 15 mL of blood-tinged fluid. Culture s pending-cont abx x 1 week total if aspirte cx negative as per ID -Patient seen by vascular surgery Dr. Bowling-no s urgical intervention at this time wait for cultures and continue antibiotics. -Labs reviewed -Hemoglobin better. On Epogen 3 times weekly -Renal following kidney function -Continue current medications -Continue brain injury and amputation IRF. Atilio carrillo progress PM R Please see team note. Plan and goals discussed with the patient. I agree with the teams finding ELOS- [05/31] DC-Home with family-HH DME-HAS WC, TT 35 min>50% with isabelin g with patient about progress, open wounds to right AKA, continue IV antibiotics, rehab plan of care , goals, therapies, progress, needs, and medical issues, examination. MAR and EMR reviewed. All Questions answered. Rehab attestation: Face to face exam completed. Treatment plan disc ussed with patient. Meets continued stay criteria. Agree with interdiscipl inary treatment plan. Sekou Curtis 05/28/20 1629: Attestations Physician Attestation Agree w/findings plan: Pt seen an evaluated by me. Agree with the findi ngs and plan as documented by ZIA Granado. at 2040 at 1708 RPT #:[id number] END OF REPORT 2020-05-28 06:35:00-00:00 [facility] ([facility] Clinical Note REPORT#:[id number] REPORT STATUS: Signed DATE:05/28/20 TIME: 634 PATIENT: DARIEN GROSSMAN UNIT #: [id number] ROOM/BED: [place] [address] : 45 AGE: 74 SEX: M ATTEND: Sekou Curtis MD ADM AUTHOR: Danny Keith MD * ALL edits or amendments must be made on the el SeeSpaceronic/computer document * Clinical Note Note: 74-year-old male 1. Fall 2. Subdural hematoma 3. TBI (traumatic brain injury) 4. History of right above knee amputation (Onse t: 04/03/20) 5. ESRD on dialysis 6. History of coronary artery disease 7. History of coronary angioplasty with inserti on of stent 8. HLD (hyperlipidemia) 9. Anemia of chronic disease 10. Frequent falls 11. Hypoalbuminemia 12. Leukocytosis 13. Limb pain 14. Impaired functional mobility, balance, gait , and endurance 05/24: Underwent ultrasound guided aspiration of superficial fluid collection and 15 cc of bloody fluid removed. Continue with pain control and IV antibiotics. Continue with renal diet. Blood pre ssure is stable. 05/25: Underwent US guided aspiration of right AK A stump yesterday. Doing well today. Nephrology evaluation noted and continue with hemodialysis. Continue with rehab care. Wound care evaluation noted and continue with wound care. 05/26: Right stump pain and phantom pain. Partici fay in rehab. 05/27: Stable. No new complaints. Continue presen t care. 05/28: She states that she is feeling well. No ne w complaints. Plan We will continue with telemetry, BP control, gly cemic control, pain control, electrolyte control, DVT/GI prophylaxis, repeat labs. PT/OT/ST. Wound care. Electronically Signed by Danny Keith MD n 06/01/20 at 1322 RPT #:[id number] END OF REPORT 2020-05-27 12:30:00-00:00 [facility] Progress Note REPORT#:[id number] REPORT STATUS: Signed DATE:05/27/20 TIME: 1230 PATIENT: DARIEN GROSSMAN UNIT #: [id number] ROOM/BED: [place] [address] : 45 AGE: 74 SEX: M ATTEND: Rosa Curtis MD ADM AUTHOR: Merissa Dillon MD * ALL edits or amendments must be made on the C-Note/computer document * Subjective Chief Complaint: Patient seen and examined. No new complaints. Objective General VS/I O: Vital Signs: Date Time Temp Pulse Resp B/P B/P Pulse O2 O2 F low FiO2 Mean Ox Delivery Rate 05/27 0727 97.3 54 16 109/60 76.3 94 05/27 0043 98.1 68 16 152/71 97.9 99 05/26 2041 98.4 76 16 111/66 81.3 97 05/26 1526 99.1 66 18 139/66 90.4 96 24 hour I O ending at 0700: 05/27 0700 05/26 1900 Intake Total 340.00 720 Output Total Balance 340.00 720 Intake, IV 100.00 Intake, Oral 240 720 Number 1 Bowel Movements Number 0 Incontinent Voids Number Voids 2 1 PATIENT WEIGHT: Weight (lb): 171 Weight (oz): 12.16 Weight (kg): 77.909 Medications Active Meds + DC'd Last 24 Hrs Hydrocodone Bitart/Acetaminophen 1 TAB Q4H PRN P RN PO Sertraline HCl 25 MG BEDTIME PO Albumin Human 12.5 GM ASDIR PRN IV Lidocaine HCl 0.5 ML ASDIR PRN I-DERMAL (CKD) Mannitol 12.5 GM ASDIR PRN IV Sodium Chloride 2,000 ML ASDIR PRN IV Sodium Chloride 10 ML ASDIR PRN IV Sodium Chloride 250 ML ASDIR PRN IV Piperacillin Sod/Tazobactam Sod 3.375 GM Q12H IV Sodium Chloride 100 ML Collagenase 1 APPLIC DAILY TOPICAL Lidocaine 1 PATCH DAILY TOPICAL Amitriptyline HCl 10 MG BEDTIME PO Triamcinolone Acetonide 40 MG PROCEDURE IM (CKD) Aspirin 81 MG DAILY PO Clopidogrel Bisulfate 75 MG DAILY PO Furosemide 40 MG DAILY PO Polyethylene Glycol 17 GM DAILY PO Senna 1 TAB DAILY PO (CKD) Venlafaxine HCl 75 MG DAILY PO Acetaminophen 650 MG Q6H PRN PRN PO Hydralazine HCl 10 MG Q6H PRN PRN PO Ondansetron HCl 4 MG TID PRN PRN SL Heparin Sodium 5,000 UNIT Q8H SUBQ Epoetin Donny-epbx 4,000 UNIT TuThSa@2100 SUBQ Gabapentin 300 MG BEDTIME PO Metoprolol Tartrate 25 MG BID PO Trazodone HCl 150 MG BEDTIME PO Zolpidem Tartrate 5 MG BEDTIME PRN PRN PO Physical Exam General appearance: alert, awake Head/eyes: atraumatic, normocephalic Cardiovascular: regular rate and rhythm, pedal p ulses present Respiratory: clear to auscultation, normal breat h sounds Abdomen: normal bowel sounds, soft Extremities: no edema, Rt AKA Results Findings/Data: Laboratory Tests 05/28 399 Chemistry Sodium (134 - 147 mEq/L) 138 Potassium (3.4 - 5.0 mEq/L) 3.7 Chloride (100 - 108 mEq/L) 103 Carbon Dioxide (21 - 33 mEq/l) 27 Anion Gap (0 - 20) 12 BUN (7 - 18 mg/dL) 41 H Creatinine (0.6 - 1.3 mg/dL) 4.4 H Glomerular Filtr Rate (70 - 80) 13.2 L Glucose (70 - 110 mg/dL) 84 Calcium (8.0 - 10.5 mg/dL) 9.3 Diagnosis, Assessment Plan Hospital course to date: 1. ESRD 2. RT AKA stump infection 3. Hypertension 4. Status post fall and acute SDH 5. Anemia of chronic kidney disease 6. Coronary artery disease Plan -HD MWF. HD in am -Blood pressure currently stable -Renal diet -Hemoglobin better. On Epogen 3 times weekly -Phos has been stable. -Rehab f/u. Free Text A P: 1. ESRD 2. AVF infiltration 3. Hypertension 4. Status post fall and acute SDH 5. Anemia of chronic kidney disease 6. Coronary artery disease Plan -HD MWF. HD today -Blood pressure currently stable -Renal diet -Hemoglobin better. On Epogen 3 times weekly -Phos has been stable. -Psych f/u. at 1230 RPT #:[id number] END OF REPORT 2020-05-27 11:53:00-00:00 [facility] ([facility]) Infectious Dis. Progress Note REPORT#:[id number] REPORT STATUS: Signed DATE:05/27/20 TIME: 1153 PATIENT: DARIEN GROSSMAN UNIT #: [id number] ROOM/BED: [place] [address] : 45 AGE: 74 SEX: M ATTEND: Rosa Curtis MD ADM AUTHOR: Jonathan Sheikh NP * ALL edits or amendments must be made on the el [employer]/computer document * Subjective Chief Complaint: F/U Right AKA cellulitis HPI: Patient is a 74-year-old male with past medical history of end-stage renal disease on HD, hypertension, hyperlipide liseth who underwent right [id number] amputation in March 2020. He was admitted to [facility] after sustaining a fall resulting in a subdural hematoma. He was transferred to rehab on . He was noted to have small amount of gamal inage to his right AKA stump and hence ID was consulted to assist with antibi otics and plan of care. Patient reports: Yes: feeling better, pain controlled (Right AKA) . No: complaints, abdominal pain, back pain, bowel movem ent, burning with urination, cough, diarrhea, fever, headache, nausea, pain, shortness of breath, vom iting, wheezing. Nursing reports: No: complaints. Review of Systems All systems rev neg: except as marked Objective General VS/I O: Last Documented: Result Date Time Pulse Ox 94 05/27 726 B/P 109/60 05/27 0727 B/P Mean 76.3 05/27 0727 Temp 97.3 05/27 0727 Pulse 54 05/27 0727 Resp 16 05/27 07 O2 Delivery Room air 05/24 1938 Vital Signs Date Temp Pulse Resp B/P B/P Mean Pulse Ox FiO2 05/26-05/27 97.3-99.1 54-76 16-18 109-152/60-71 76.3-97.9 94-99 24 hour I O ending at 0700: 05/27 0700 05/26 1900 Intake Total 340.00 720 Output Total Balance 340.00 720 Intake, IV 100.00 Intake, Oral 240 720 Number 1 Bowel Movements Number 0 Incontinent Voids Number Voids 2 1 PATIENT WEIGHT: Weight (lb): 171 Weight (oz): 12.16 Weight (kg): 77.909 Physical Exam General appearance: alert, awake, oriented, no a cute distress, pleasant, conversational, mental status normal Wound/incision: Location: Right AKA stump small wound dehiscence, no drain age or periwound erythema Head/Eyes: atraumatic, normal conjunctiva/sclera ENT: moist mucosal membranes Neck: full range of motion Cardiovascular: normal heart sounds Respiratory: no distress Abdomen: non-tender, normal bowel sounds Neuro/CUSTODIAN MANAGER: alert, oriented X 3 Skin: dry, no rash Results Findings/Data: Laboratory Tests 04/16 0400 Chemistry Sodium (134 - 147 mEq/L) 138 Potassium (3.4 - 5.0 mEq/L) 3.7 Chloride (100 - 108 mEq/L) 103 Carbon Dioxide (21 - 33 mEq/l) 27 Anion Gap (0 - 20) 12 BUN (7 - 18 mg/dL) 41 H Creatinine (0.6 - 1.3 mg/dL) 4.4 H Glomerular Filtr Rate (70 - 80) 13.2 L Glucose (70 - 110 mg/dL) 84 Calcium (8.0 - 10.5 mg/dL) 9.3 Results: labs reviewed, vital signs stable, curr ent med profile rev'd Diagnosis, Assessment Plan Free Text A P: 1. Right AKA stump cellulitis --R/O fluid collection, check CT extremity --Superficial cx: Pseudomonas (R-Merrem), and Co NS --ESR/CRP significant elevated --CT (+) [id number] loculated f luid collection; S/P diagnostic aspiration by IR , GS (-), CX (-) 2. S/P Mechanical fall with SDH 3. ESRD on HD 4. HTN 5. HLD On Zosyn started 05/23 (Day 4) of 7 Plan discussed with: patient, nurse Electronically Signed by Jonathan Sheikh NP on at 1154 RPT #:[id number] END OF REPORT 2020-05-27 11:53:00-00:00 [facility] ([facility]) Infectious Dis. Progress Note REPORT#:[id number] REPORT STATUS: Signed DATE:05/27/20 TIME: 1153 PATIENT: DARIEN GROSSMAN UNIT #: [id number] ROOM/BED: [place] [address] : 45 AGE: 74 SEX: M ATTEND: Rosa Curtis MD ADM AUTHOR: Jonathan Sheikh NP * ALL edits or amendments must be made on the C-Note/computer document * Subjective Chief Complaint: F/U Right AKA cellulitis HPI: Patient is a 74-year-old male with past medical history of end-stage renal disease on HD, hypertension, hyperlipide liseth who underwent right [id number] amputation in March 2020. He was admitted to [facility] after sustaining a fall resulting in a subdural hematoma. He was transferred to rehab on . He was noted to have small amount of gamal inage to his right AKA stump and hence ID was consulted to assist with antibi otics and plan of care. Patient reports: Yes: feeling better, pain controlled (Right AKA) . No: complaints, abdominal pain, back pain, bowel movem ent, burning with urination, cough, diarrhea, fever, headache, nausea, pain, shortness of breath, vom iting, wheezing. Nursing reports: No: complaints. Review of Systems All systems rev neg: except as marked Objective General VS/I O: Last Documented: Result Date Time Pulse Ox 94 05/27 726 B/P 109/60 05/27 07 B/P Mean 76.3 05/27 726 Temp 97.3 05/27 726 Pulse 54 05/27 0727 Resp 16 05/27 726 O2 Delivery Room air 05/24 193 Vital Signs Date Temp Pulse Resp B/P B/P Mean Pulse Ox FiO2 05/26-05/27 97.3-99.1 54-76 16-18 109-152/60-71 76.3-97.9 94-99 24 hour I O ending at 0700: 05/27 0700 05/26 1900 Intake Total 340.00 720 Output Total Balance 340.00 720 Intake, IV 100.00 Intake, Oral 240 720 Number 1 Bowel Movements Number 0 Incontinent Voids Number Voids 2 1 PATIENT WEIGHT: Weight (lb): 171 Weight (oz): 12.16 Weight (kg): 77.909 Physical Exam General appearance: alert, awake, oriented, no a cute distress, pleasant, conversational, mental status normal Wound/incision: Location: Right AKA stump small wound dehiscence, no drain age or periwound erythema Head/Eyes: atraumatic, normal conjunctiva/sclera ENT: moist mucosal membranes Neck: full range of motion Cardiovascular: normal heart sounds Respiratory: no distress Abdomen: non-tender, normal bowel sounds Neuro/CUSTODIAN MANAGER: alert, oriented X 3 Skin: dry, no rash Results Findings/Data: Laboratory Tests 05/27 0400 Chemistry Sodium (134 - 147 mEq/L) 138 Potassium (3.4 - 5.0 mEq/L) 3.7 Chloride (100 - 108 mEq/L) 103 Carbon Dioxide (21 - 33 mEq/l) 27 Anion Gap (0 - 20) 12 BUN (7 - 18 mg/dL) 41 H Creatinine (0.6 - 1.3 mg/dL) 4.4 H Glomerular Filtr Rate (70 - 80) 13.2 L Glucose (70 - 110 mg/dL) 84 Calcium (8.0 - 10.5 mg/dL) 9.3 Results: labs reviewed, vital signs stable, curr ent med profile rev'd Diagnosis, Assessment Plan Free Text A P: 1. Right AKA stump cellulitis --R/O fluid collection, check CT extremity --Superficial cx: Pseudomonas (R-Merrem), and Co NS --ESR/CRP significant elevated --CT (+) [id number] loculated f luid collection; S/P diagnostic aspiration by IR , GS (-), CX (-) 2. S/P Mechanical fall with SDH 3. ESRD on HD 4. HTN 5. HLD On Zosyn started 05/23 (Day 4) of 7 Plan discussed with: patient, nurse Electronically Signed by Jonathan Sheikh MONOGRAM MAKER on at 1154 at 4720 RPT #:[id number] END OF REPORT 2020-05-27 11:39:00-00:00 [facility] Prog. Note REPORT#:[id number] REPORT STATUS: Signed DATE:05/27/20 TIME: 113 PATIENT: DARIEN GROSSMAN UNIT #: [id number] ROOM/BED: [place] [address] : 45 AGE: 74 SEX: M ATTEND: Rosa Curtis MD ADM AUTHOR: Javier Meek NP * ALL edits or amendments must be made on the C-Note/computer document * Subjective Chief Complaint: Right AKA Possible depression Review of Systems Constitutional: Denies: chills, fever. ENT: Denies: earache, nasal congestion, sore throat. Respiratory: Denies: hemoptysis, parox no cturnal dyspnea, pleurisy, pleuritic pain, pneumonia , SOB, wheezing. Cardiovascular: Denies: chest pain, palpitations. GI: Denies: abdominal pain, nausea, vomiting. : Denies: flank pain, frequency, hematuria. Musculoskeletal: Denies: extremity pain, extr emity swelling, joint pain, lumbar pain, neck pain. Neuro: Denies: change in LOC, confusion, dizziness, foc al weakness, gait problem, headache, lightheaded, numbness, seizure, slurre d speech, spinning sensation, syncope, unable to speak, vision change. Psych: Denies: agitation, anxiety, auditory hallucinati on, change in mental status, confusion, delusional, depre ssion, homicidal ideation, hostile, insomnia, stress , suicidal ideation, visual hallucination. All systems rev neg: except as marked Objective Physical Exam General appearance: alert, awake, oriented Neck: no JVD Cardiovascular: regular rate rhythm Respiratory: aerating well, clear to auscultatio n Abdomen: non-tender, normal bowel sounds, soft Extremities: Extremities: RT AKA Neuro/CUSTODIAN MANAGER: alert, oriented x 3 Skin: dry, normal temperature Psychiatry: depressed, normal judgement/insight Diagnosis, Assessment Plan Free Text DxA P Notes Free text DxA P notes: Assessment: 1.Mechanical fall 2.Traumatic brain injury with subdural hematoma 3. Right AKA pulmonary 2020 4. IMpaired mobility/Impaired gait 5. History of depression 6. Generalized weakness 7. Phantom pain 8. End-stage renal disease on hemodialysis 3 day s a week 9. Anemia 10. History of coronary artery disease, hyperten willy, and hyperlipidemia 05/21/20 Patient's doing well Sitting in a wheelchair Participating in therapy Family visiting at the bedside 05/22/20 Patient participating in therapy daily Reportedly patient is depressed He answered all my questions but seems to be sad May 23, 2020 No leukocytosis, anemia Continue to monitor renal function CT of the right femur without contrast: [id number]-[id number] amputation changes with complex soft tissue fluid collection at the stump site. There is loss of fatty medullary density at the stump site. Osteomyelit is is not excluded. Correlate with MRI. Continue wound care May 24, 2020 The patient underwent ultrasound-guided aspirati on of superficial fluid collection May 25, 2020 Patient was started on Zoloft and venlafaxine Continue psychiatric medications Supportive psychotherapy for anxiety and depress ion Status post US guided aspiration of right AKA st ump yesterday. Continue hemodialysis and wound care Monitor H H Continue working with rehab May 26, 2020 Complaining of right stump pain, neuropathy and phantom limb pain as per pain management Working with rehab, better mood Hemodialysis yesterday May 27, 2020 Reports less pain, complains of generalized weak ness Cooperating with rehab Seen by wound care Continue antibiotics Plan of care: -Continue with comprehensive inpatient rehabilit [facility] rehab team -Pain control -Fall precaution -DVT prophylaxis -GI prophylaxis -Pain control as pain management -Seizure precaution patient on Keppra -Continues present medications -Monitor labs -Plan of care discussed with the patient, galina palma's nurse, and Dr. Cavazos. Electronically Signed by Javier Meek NP on 0 05/29/20 at 0631 RPT #:[id number] END OF REPORT 2020-05-27 11:39:00-00:00 [facility] Internal Medicine Prog. Note REPORT#:[id number] REPORT STATUS: Signed DATE:05/27/20 TIME: 1139 PATIENT: DARIEN GROSSMAN UNIT #: [id number] ROOM/BED: [place] [address] : 45 AGE: 74 SEX: M ATTEND: Rosa Curtis MD ADM AUTHOR: Javier Meek NP * ALL edits or amendments must be made on the C-Note/computer document * Javier Meek 05/27/20 1139: Subjective Chief Complaint: Right AKA Possible depression Review of Systems Constitutional: Denies: chills, fever. ENT: Denies: earache, nasal congestion, sore throat. Respiratory: Denies: hemoptysis, parox no cturnal dyspnea, pleurisy, pleuritic pain, pneumonia , SOB, wheezing. Cardiovascular: Denies: chest pain, palpitations. GI: Denies: abdominal pain, nausea, vomiting. : Denies: flank pain, frequency, hematuria. Musculoskeletal: Denies: extremity pain, extr emity swelling, joint pain, lumbar pain, neck pain. Neuro: Denies: change in LOC, confusion, dizziness, foc al weakness, gait problem, headache, lightheaded, numbness, seizure, slurre d speech, spinning sensation, syncope, unable to speak, vision change. Psych: Denies: agitation, anxiety, auditory hallucinati on, change in mental status, confusion, delusional, depre ssion, homicidal ideation, hostile, insomnia, stress , suicidal ideation, visual hallucination. All systems rev neg: except as marked Objective Physical Exam General appearance: alert, awake, oriented Neck: no JVD Cardiovascular: regular rate rhythm Respiratory: aerating well, clear to auscultatio n Abdomen: non-tender, normal bowel sounds, soft Extremities: Extremities: RT AKA Neuro/CUSTODIAN MANAGER: alert, oriented x 3 Skin: dry, normal temperature Psychiatry: depressed, normal judgement/insight Diagnosis, Assessment Plan Free Text DxA P Notes Free text DxA P notes: Assessment: 1.Mechanical fall 2.Traumatic brain injury with subdural hematoma 3. Right AKA pulmonary 2020 4. IMpaired mobility/Impaired gait 5. History of depression 6. Generalized weakness 7. Phantom pain 8. End-stage renal disease on hemodialysis 3 day s a week 9. Anemia 10. History of coronary artery disease, hyperten willy, and hyperlipidemia 05/21/20 Patient's doing well Sitting in a wheelchair Participating in therapy Family visiting at the bedside 05/22/20 Patient participating in therapy daily Reportedly patient is depressed He answered all my questions but seems to be sad May 23, 2020 No leukocytosis, anemia Continue to monitor renal function CT of the right femur without contrast: Znaaw-lqt-[id number] amputation changes with complex soft tissue fluid collection at the stump site. There is loss of fatty medullary density at the stump site. Osteomyelit is is not excluded. Correlate with MRI. Continue wound care May 24, 2020 The patient underwent ultrasound-guided aspirati on of superficial fluid collection May 25, 2020 Patient was started on Zoloft and venlafaxine Continue psychiatric medications Supportive psychotherapy for anxiety and depress ion Status post US guided aspiration of right AKA st ump yesterday. Continue hemodialysis and wound care Monitor H H Continue working with rehab May 26, 2020 Complaining of right stump pain, neuropathy and phantom limb pain as per pain management Working with rehab, better mood Hemodialysis yesterday May 27, 2020 Reports less pain, complains of generalized weak ness Cooperating with rehab Seen by wound care Continue antibiotics Plan of care: -Continue with comprehensive inpatient rehabilit [facility] rehab team -Pain control -Fall precaution -DVT prophylaxis -GI prophylaxis -Pain control as pain management -Seizure precaution patient on Keppra -Continues present medications -Monitor labs -Plan of care discussed with the patient, galina marcano nurse, and Dr. Cavazos. Danny Cavazos 05/29/20 2324: Attestations Physician Attestation Agree w/findings plan: Patient seen and examined on 05/27/2020. I agree with the findings and plan as documented by JOSE Meek. Plan of care coordinat ed with JOSE Meek. Pertinent labs, Imaging, and store sales consultant evaluations review ed. 74-year-old male was admitted to inpatient rehab for comprehensive rehabilitation. He reports less pain and complains of generalized weakness. He is cooperating with rehab and seen by wound care . We will continue with antibiotics, hemodialysis an d wound care, comprehensive inpatient rehabilitation was per rehab team, pain control, fall p recautions, DVT prophylaxis with subcu heparin, GI prophylaxis with Protonix, pain control as pain management, seizure precautions with Keppra, and present medications . We will continue to monitor his labs. Electronically Signed by Javier Meek NP on 0 05/29/20 at 0631 RPT #:[id number] END OF REPORT 2020-05-27 11:39:00-00:00 [facility]) Internal Medicine Prog. Note REPORT#:[id number] REPORT STATUS: Signed DATE:05/27/20 TIME: 1139 PATIENT: DARIEN GROSSMAN UNIT #: [id number] ROOM/BED: [place] [address] : 45 AGE: 74 SEX: M ATTEND: Rosa Curtis MD ADM AUTHOR: Javier Meek MONOGRAM MAKER * ALL edits or amendments must be made on the el [employer]/computer document * Javier Meek 05/27/20 1139: Subjective Chief Complaint: Right AKA Possible depression Review of Systems Constitutional: Denies: chills, fever. ENT: Denies: earache, nasal congestion, sore throat. Respiratory: Denies: hemoptysis, parox no cturnal dyspnea, pleurisy, pleuritic pain, pneumonia , SOB, wheezing. Cardiovascular: Denies: chest pain, palpitations. GI: Denies: abdominal pain, nausea, vomiting. : Denies: flank pain, frequency, hematuria. Musculoskeletal: Denies: extremity pain, extr emity swelling, joint pain, lumbar pain, neck pain. Neuro: Denies: change in LOC, confusion, dizziness, foc al weakness, gait problem, headache, lightheaded, numbness, seizure, slurre d speech, spinning sensation, syncope, unable to speak, vision change. Psych: Denies: agitation, anxiety, auditory hallucinati on, change in mental status, confusion, delusional, depre ssion, homicidal ideation, hostile, insomnia, stress , suicidal ideation, visual hallucination. All systems rev neg: except as marked Objective Physical Exam General appearance: alert, awake, oriented Neck: no JVD Cardiovascular: regular rate rhythm Respiratory: aerating well, clear to auscultatio n Abdomen: non-tender, normal bowel sounds, soft Extremities: Extremities: RT AKA Neuro/CUSTODIAN MANAGER: alert, oriented x 3 Skin: dry, normal temperature Psychiatry: depressed, normal judgement/insight Diagnosis, Assessment Plan Free Text DxA P Notes Free text DxA P notes: Assessment: 1.Mechanical fall 2.Traumatic brain injury with subdural hematoma 3. Right AKA pulmonary 2020 4. IMpaired mobility/Impaired gait 5. History of depression 6. Generalized weakness 7. Phantom pain 8. End-stage renal disease on hemodialysis 3 day s a week 9. Anemia 10. History of coronary artery disease, hyperten willy, and hyperlipidemia 05/21/20 Patient's doing well Sitting in a wheelchair Participating in therapy Family visiting at the bedside 05/22/20 Patient participating in therapy daily Reportedly patient is depressed He answered all my questions but seems to be sad May 23, 2020 No leukocytosis, anemia Continue to monitor renal function CT of the right femur without contrast: Ceyoo-lpq-whyw amputation changes with complex soft tissue fluid collection at the stump site. There is loss of fatty medullary density at the stump site. Osteomyelit is is not excluded. Correlate with MRI. Continue wound care May 24, 2020 The patient underwent ultrasound-guided aspirati on of superficial fluid collection May 25, 2020 Patient was started on Zoloft and venlafaxine Continue psychiatric medications Supportive psychotherapy for anxiety and depress ion Status post US guided aspiration of right AKA st ump yesterday. Continue hemodialysis and wound care Monitor H H Continue working with rehab May 26, 2020 Complaining of right stump pain, neuropathy and phantom limb pain as per pain management Working with rehab, better mood Hemodialysis yesterday May 27, 2020 Reports less pain, complains of generalized weak ness Cooperating with rehab Seen by wound care Continue antibiotics Plan of care: -Continue with comprehensive inpatient rehabilit [facility] rehab team -Pain control -Fall precaution -DVT prophylaxis -GI prophylaxis -Pain control as pain management -Seizure precaution patient on Keppra -Continues present medications -Monitor labs -Plan of care discussed with the patient, galina marcano nurse, and Dr. Cavazos. Danny Cavazos 05/29/20 2324: Attestations Physician Attestation Agree w/findings plan: Patient seen and examined on 05/27/2020. I agree with the findings and plan as documented by JOSE Meek. Plan of care coordinat ed with JOSE Meek. Pertinent labs, Imaging, and store sales consultant evaluations review ed. 74-year-old male was admitted to inpatient rehab for comprehensive rehabilitation. He reports less pain and complains of generalized weakness. He is cooperating with rehab and seen by wound care . We will continue with antibiotics, hemodialysis an d wound care, comprehensive inpatient rehabilitation was per rehab team, pain control, fall p recautions, DVT prophylaxis with subcu heparin, GI prophylaxis with Protonix, pain control as pain management, seizure precautions with Keppra, and present medications . We will continue to monitor his labs. Electronically Signed by Javier Meek NP on 0 05/29/20 at 0631 RPT #:[id number] END OF REPORT 2020-05-27 11:39:00-00:00 [facility] Internal Medicine Prog. Note REPORT#:[id number] REPORT STATUS: Signed DATE:05/27/20 TIME: 1139 PATIENT: DARIEN GROSSMAN UNIT #: [id number] ROOM/BED: [facility] : 45 AGE: 74 SEX: M ATTEND: Rosa Curtis MD ADM AUTHOR: Javier Meek MONOGRAM MAKER * ALL edits or amendments must be made on the C-Note/computer document * Javier Meek 05/27/20 1139: Subjective Chief Complaint: Right AKA Possible depression Review of Systems Constitutional: Denies: chills, fever. ENT: Denies: earache, nasal congestion, sore throat. Respiratory: Denies: hemoptysis, parox no cturnal dyspnea, pleurisy, pleuritic pain, pneumonia , SOB, wheezing. Cardiovascular: Denies: chest pain, palpitations. GI: Denies: abdominal pain, nausea, vomiting. : Denies: flank pain, frequency, hematuria. Musculoskeletal: Denies: extremity pain, extr emity swelling, joint pain, lumbar pain, neck pain. Neuro: Denies: change in LOC, confusion, dizziness, foc al weakness, gait problem, headache, lightheaded, numbness, seizure, slurre d speech, spinning sensation, syncope, unable to speak, vision change. Psych: Denies: agitation, anxiety, auditory hallucinati on, change in mental status, confusion, delusional, depre ssion, homicidal ideation, hostile, insomnia, stress , suicidal ideation, visual hallucination. All systems rev neg: except as marked Objective Physical Exam General appearance: alert, awake, oriented Neck: no JVD Cardiovascular: regular rate rhythm Respiratory: aerating well, clear to auscultatio n Abdomen: non-tender, normal bowel sounds, soft Extremities: Extremities: RT AKA Neuro/CUSTODIAN MANAGER: alert, oriented x 3 Skin: dry, normal temperature Psychiatry: depressed, normal judgement/insight Diagnosis, Assessment Plan Free Text DxA P Notes Free text DxA P notes: Assessment: 1.Mechanical fall 2.Traumatic brain injury with subdural hematoma 3. Right AKA pulmonary 2020 4. IMpaired mobility/Impaired gait 5. History of depression 6. Generalized weakness 7. Phantom pain 8. End-stage renal disease on hemodialysis 3 day s a week 9. Anemia 10. History of coronary artery disease, hyperten willy, and hyperlipidemia 05/21/20 Patient's doing well Sitting in a wheelchair Participating in therapy Family visiting at the bedside 05/22/20 Patient participating in therapy daily Reportedly patient is depressed He answered all my questions but seems to be sad May 23, 2020 No leukocytosis, anemia Continue to monitor renal function CT of the right femur without contrast: Fqwun-rpz-kagf amputation changes with complex soft tissue fluid collection at the stump site. There is loss of fatty medullary density at the stump site. Osteomyelit is is not excluded. Correlate with MRI. Continue wound care May 24, 2020 The patient underwent ultrasound-guided aspirati on of superficial fluid collection May 25, 2020 Patient was started on Zoloft and venlafaxine Continue psychiatric medications Supportive psychotherapy for anxiety and depress ion Status post US guided aspiration of right AKA st ump yesterday. Continue hemodialysis and wound care Monitor H H Continue working with rehab May 26, 2020 Complaining of right stump pain, neuropathy and phantom limb pain as per pain management Working with rehab, better mood Hemodialysis yesterday May 27, 2020 Reports less pain, complains of generalized weak ness Cooperating with rehab Seen by wound care Continue antibiotics Plan of care: -Continue with comprehensive inpatient rehabilit [facility] rehab team -Pain control -Fall precaution -DVT prophylaxis -GI prophylaxis -Pain control as pain management -Seizure precaution patient on Keppra -Continues present medications -Monitor labs -Plan of care discussed with the patient, galina marcano nurse, and Dr. Cavazos. Danny Cavazos 05/29/20 2324: Attestations Physician Attestation Agree w/findings plan: Patient seen and examined on 05/27/2020. I agree with the findings and plan as documented by JOSE Meek. Plan of care coordinat ed with JOSE Meek. Pertinent labs, Imaging, and store sales consultant evaluations review ed. 74-year-old male was admitted to inpatient rehab for comprehensive rehabilitation. He reports less pain and complains of generalized weakness. He is cooperating with rehab and seen by wound care . We will continue with antibiotics, hemodialysis an d wound care, comprehensive inpatient rehabilitation was per rehab team, pain control, fall p recautions, DVT prophylaxis with subcu heparin, GI prophylaxis with Protonix, pain control as pain management, seizure precautions with Keppra, and present medications . We will continue to monitor his labs. Electronically Signed by Javier Meek MONOGRAM MAKER on 0 05/29/20 at 0631 Electronically Signed by Danny Keith MD o n 05/30/20 at 0011 RPT #:[id number] END OF REPORT 2020-05-27 11:08:00-00:00 [facility] ([facility]) Pain Management Progress Note REPORT#:[id number] REPORT STATUS: Signed DATE:05/27/20 TIME: 1108 PATIENT: DARIEN GROSSMAN UNIT #: [id number] ROOM/BED: [place] [address] : 45 AGE: 74 SEX: M ATTEND: Rosa Curtis MD ADM AUTHOR: Sohail Wells * ALL edits or amendments must be made on the C-Note/computer document * Subjective Chief complaint: Patient seen and examined. Chart and VIJAYA reyes Patient is doing okay, reports no new problems o vernight. Patient being seen for Left thigh pain, lateral femoral cutaneous neuralgia, Right AKA pain, Peripheral n europathy, phantom limb pain right lower extremity, Patient states symptoms are manageable with use of current medications. No fever/chills, chest pain, dyspnea, no emesis, pruritus, or hallucinations. 14-point ROS undertaken unremarkable except as n oted. Objective General VS/I O: Vital Signs Date Temp Pulse Resp B/P B/P Mean Pulse Ox FiO2 05/26-05/27 36.3-37.3 54-76 16-18 109-152/60-71 76.3-97.9 94-99 Last Documented: Result Date Time Pulse Ox 94 05/27 07 B/P 109/60 05/27 0727 B/P Mean 76.3 05/27 726 Temp 36.3 05/27 07 Pulse 54 05/27 726 Resp 16 05/27 726 O2 Delivery Room air 05/24 1937 24 hour I O ending at 0700: 05/27 0700 05/26 1900 Intake Total 340.00 720 Output Total Balance 340.00 720 Intake, IV 100.00 Intake, Oral 240 720 Number 1 Bowel Movements Number 0 Incontinent Voids Number Voids 2 1 PATIENT WEIGHT: Weight (lb): 171 Weight (oz): 12.16 Weight (kg): 77.909 Medications: Active Meds + DC'd Last 24 Hrs Hydrocodone Bitart/Acetaminophen 1 TAB Q4H PRN PRN PO Sertraline HCl 25 MG BEDTIME PO Albumin Human 12.5 GM ASDIR PRN IV Lidocaine HCl 0.5 ML ASDIR PRN I-DERMAL (CKD) Mannitol 12.5 GM ASDIR PRN IV Sodium Chloride 2,000 ML ASDIR PRN IV Sodium Chloride 10 ML ASDIR PRN IV Sodium Chloride 250 ML ASDIR PRN IV Piperacillin Sod/Tazobactam Sod 3.375 GM Q12H IV Sodium Chloride 100 ML Collagenase 1 APPLIC DAILY TOPICAL Lidocaine 1 PATCH DAILY TOPICAL Amitriptyline HCl 10 MG BEDTIME PO Triamcinolone Acetonide 40 MG PROCEDURE IM (CKD) Aspirin 81 MG DAILY PO Clopidogrel Bisulfate 75 MG DAILY PO Furosemide 40 MG DAILY PO Polyethylene Glycol 17 GM DAILY PO Senna 1 TAB DAILY PO (CKD) Venlafaxine HCl 75 MG DAILY PO Acetaminophen 650 MG Q6H PRN PRN PO Hydralazine HCl 10 MG Q6H PRN PRN PO Ondansetron HCl 4 MG TID PRN PRN SL Heparin Sodium 5,000 UNIT Q8H SUBQ Epoetin Donny-epbx 4,000 UNIT TuThSa@2100 SUBQ Gabapentin 300 MG BEDTIME PO Metoprolol Tartrate 25 MG BID PO Trazodone HCl 150 MG BEDTIME PO Zolpidem Tartrate 5 MG BEDTIME PRN PRN PO Physical Exam General appearance: alert, awake, orient ed, no acute distress, in good spirits Head/eyes: atraumatic, normocephalic, normal con junctiva/sclera ENT: normal pharynx, moist mucosal membranes Neck: full range of motion, non-tender, supple/n o meningismus Cardiovascular: regular rate rhythm Respiratory: clear to auscultation, no distress, aerating well Abdomen quadrants LLQ normal bowel sounds, LUQ normal roberto l sounds, RLQ normal bowel sounds, RUQ normal bowel sounds Extremities: moves all, no edema, pedal pulses, right AKA Neuro/CUSTODIAN MANAGER: no motor deficits, no sensory deficit s, CNII-XII grossly intact Skin: dry, intact, no rash Psychiatry: normal judgment/insight Results Findings/data: Laboratory Tests: 05/27 0400 Chemistry Sodium (134 - 147 mEq/L) 138 Potassium (3.4 - 5.0 mEq/L) 3.7 Chloride (100 - 108 mEq/L) 103 Carbon Dioxide (21 - 33 mEq/l) 27 Anion Gap (0 - 20) 12 BUN (7 - 18 mg/dL) 41 H Creatinine (0.6 - 1.3 mg/dL) 4.4 H Glomerular Filtr Rate (70 - 80) 13.2 L Glucose (70 - 110 mg/dL) 84 Calcium (8.0 - 10.5 mg/dL) 9.3 Diagnosis, Assessment Plan Free text A P: A/P: Patient is a 74 year old male presenting with: Past medical history: Subdural hematoma, CAD, en d-stage renal disease on HD, hypertension, hyperlipidemia, septic art hritis of prosthesis of previous right TKA, depression Past surgical history: Right TKR, right AKA, cor onary stents Social history: Negative for alcohol, tobacco, i llicit drug use Family history: Not relevant Allergies: Penicillin, iodine Left thigh pain, lateral femoral cutaneous neura lgia -We offered to perform a left lateral femoral cu taneous nerve block to see if this helps with the pain. Patient declined -05/24-decrease Otis 10/325 to Otis 7.5/325 james ry 4 as needed -Lidoderm patch to left thigh daily -Otis 7.5/325 mg oral every 4 hours as needed f or pain -manageable Right AKA discomfort -05/23/2020-CT lower extremity - Above th e knee amputation changes with complex soft tissue fluid collection at the stum p site. There is loss of fatty medullary density at the stump site. Osteomyelitis is not excluded. C orrelate with MRI as clinically indicated. -IV antibiotics , appreciate infectious disease input -Pain medications as outlined above Peripheral neuropathy, phantom limb pain right l ower extremity -Gabapentin 300 mg oral at bedtime -amitriptyline 10 mg oral at bedtime -stable Antalgic/impaired gait -PT/OT -Gait training, improve endurance and strength -Transfer training -PMR following Falls -Fall precautions End-stage renal disease on hemodialysis -Nephrology following Subdural hematoma -Monitor mental status with opioids and other se dative medications Depression -monitoring Constipation -Monitor closely while patient is using opioid n arcotics -MiraLAX 17 g p.o. daily -Senna 1 tab p.o. daily All pertinent diagnostics/labs from the last 24 hours and during the course of the admission were reviewed. Plan discussed with the patient and the nurse. A ll questions were answered. Patient will be monitored for deleteriou s side effects associated with opioids and sedative medications. Me dications will be adjusted further clinical course. Risks versus benefits of opioid medications were reviewed to include, but not limited to respiratory depression, accid ental overdose, altered mental status, sudden , constipation which could result in bowel obstruction, seizures, withdrawal, dependency/addiction, risk for falls . Goals: Daily pain control. Case discussed with Dr Lofton whom agrees. 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: Total Prescriptions 28 Total Private Pay 0 Total Prescribers 4 Total Pharmacies 1 05/06/2020 1 05/06/2020 HYDROCODONE-ACETAMIN 10- 325 MG 30.0 7 [facility] SPA [id number] [facility] (1602) 0 42.86 MME Comm Ins [place] 04/20/2020 1 12/24/2019 ZOLPIDEM TARTRATE 10 MG TABLET 30.0 30 PE LAT [id number] [facility] (1602) 4 Comm Ins [place] 03/21/2020 1 12/24/2019 ZOLPIDEM TARTRATE 10 MG TABLET 30.0 30 PE LAT [id number] [facility] (1602) 3 Comm Ins [place] 02/20/2020 1 12/24/2019 ZOLPIDEM TARTRATE 10 MG TABLET 30.0 30 PE LAT [id number] [facility] (1602) 2 Comm Ins [place] 01/21/2020 1 12/24/2019 ZOLPIDEM TARTRATE 10 MG TABLET 30.0 30 PE LAT [id number] [facility] (1602) 1 Comm Ins [place] 12/24/2019 1 12/24/2019 ZOLPIDEM TARTRATE 10 MG TABLET 30.0 30 PE LAT [id number] [facility] (1602) 0 Comm Ins [place] 11/25/2019 1 07/07/2019 ZOLPIDEM TARTRATE 10 MG TABLET 30.0 30 PE LAT [id number] [facility] (1602) 5 Comm Ins [id number] ([id number]) [address] [place] [address] at [address] [facility] #:[id number] END OF REPORT 2020-05-27 11:08:00-00:00 [facility] ([facility]) Pain Management Progress Note REPORT#:[id number] REPORT STATUS: Signed DATE:05/27/20 TIME: 1108 PATIENT: DARIEN GROSSMAN UNIT #: [id number] ROOM/BED: [place] [address] : 45 AGE: 74 SEX: M ATTEND: Rosa Curtis MD ADM AUTHOR: Sohail Wells * ALL edits or amendments must be made on the C-Note/Above [employer] document * Subjective Chief complaint: Patient seen and examined. Chart and VIJAYA reyes Patient is doing okay, reports no new problems o vernight. Patient being seen for Left thigh pain, lateral femoral cutaneous neuralgia, Right AKA pain, Peripheral n europathy, phantom limb pain right lower extremity, Patient states symptoms are manageable with use of current medications. No fever/chills, chest pain, dyspnea, no emesis, pruritus, or hallucinations. 14-point ROS undertaken unremarkable except as n oted. Objective General VS/I O: Vital Signs Date Temp Pulse Resp B/P B/P Mean Pulse Ox FiO2 05/26-05/27 36.3-37.3 54-76 16-18 109-152/60-71 76.3-97.9 94-99 Last Documented: Result Date Time Pulse Ox 94 05/27 0727 B/P 109/60 05/27 0727 B/P Mean 76.3 05/27 0727 Temp 36.3 05/27 0727 Pulse 54 05/27 0727 Resp 16 05/27 0727 O2 Delivery Room air 05/24 1938 24 hour I O ending at 0700: 05/27 0700 05/26 1900 Intake Total 340.00 720 Output Total Balance 340.00 720 Intake, IV 100.00 Intake, Oral 240 720 Number 1 Bowel Movements Number 0 Incontinent Voids Number Voids 2 1 PATIENT WEIGHT: Weight (lb): 171 Weight (oz): 12.16 Weight (kg): 77.909 Medications: Active Meds + DC'd Last 24 Hrs Hydrocodone Bitart/Acetaminophen 1 TAB Q4H PRN P RN PO Sertraline HCl 25 MG BEDTIME PO Albumin Human 12.5 GM ASDIR PRN IV Lidocaine HCl 0.5 ML ASDIR PRN I-DERMAL (CKD) Mannitol 12.5 GM ASDIR PRN IV Sodium Chloride 2,000 ML ASDIR PRN IV Sodium Chloride 10 ML ASDIR PRN IV Sodium Chloride 250 ML ASDIR PRN IV Piperacillin Sod/Tazobactam Sod 3.375 GM Q12H IV Sodium Chloride 100 ML Collagenase 1 APPLIC DAILY TOPICAL Lidocaine 1 PATCH DAILY TOPICAL Amitriptyline HCl 10 MG BEDTIME PO Triamcinolone Acetonide 40 MG PROCEDURE IM (CKD) Aspirin 81 MG DAILY PO Clopidogrel Bisulfate 75 MG DAILY PO Furosemide 40 MG DAILY PO Polyethylene Glycol 17 GM DAILY PO Senna 1 TAB DAILY PO (CKD) Venlafaxine HCl 75 MG DAILY PO Acetaminophen 650 MG Q6H PRN PRN PO Hydralazine HCl 10 MG Q6H PRN PRN PO Ondansetron HCl 4 MG TID PRN PRN SL Heparin Sodium 5,000 UNIT Q8H SUBQ Epoetin Donny-epbx 4,000 UNIT TuThSa@2100 SUBQ Gabapentin 300 MG BEDTIME PO Metoprolol Tartrate 25 MG BID PO Trazodone HCl 150 MG BEDTIME PO Zolpidem Tartrate 5 MG BEDTIME PRN PRN PO Physical Exam General appearance: alert, awake, orient ed, no acute distress, in good spirits Head/eyes: atraumatic, normocephalic, normal con junctiva/sclera ENT: normal pharynx, moist mucosal membranes Neck: full range of motion, non-tender, supple/n o meningismus Cardiovascular: regular rate rhythm Respiratory: clear to auscultation, no distress, aerating well Abdomen quadrants LLQ normal bowel sounds, LUQ normal roberto l sounds, RLQ normal bowel sounds, RUQ normal bowel sounds Extremities: moves all, no edema, pedal pulses, right AKA Neuro/CUSTODIAN MANAGER: no motor deficits, no sensory deficit s, CNII-XII grossly intact Skin: dry, intact, no rash Psychiatry: normal judgment/insight Results Findings/data: Laboratory Tests: 05/27 0400 Chemistry Sodium (134 - 147 mEq/L) 138 Potassium (3.4 - 5.0 mEq/L) 3.7 Chloride (100 - 108 mEq/L) 103 Carbon Dioxide (21 - 33 mEq/l) 27 Anion Gap (0 - 20) 12 BUN (7 - 18 mg/dL) 41 H Creatinine (0.6 - 1.3 mg/dL) 4.4 H Glomerular Filtr Rate (70 - 80) 13.2 L Glucose (70 - 110 mg/dL) 84 Calcium (8.0 - 10.5 mg/dL) 9.3 Diagnosis, Assessment Plan Free text A P: A/P: Patient is a 74 year old male presenting with: Past medical history: Subdural hematoma, CAD, en d-stage renal disease on HD, hypertension, hyperlipidemia, septic art hritis of prosthesis of previous right TKA, depression Past surgical history: Right TKR, right AKA, cor onary stents Social history: Negative for alcohol, tobacco, i llicit drug use Family history: Not relevant Allergies: Penicillin, iodine Left thigh pain, lateral femoral cutaneous neura lgia -We offered to perform a left lateral femoral cu taneous nerve block to see if this helps with the pain. Patient declined -05/24-decrease Otis 10/325 to Otis 7.5/325 james ry 4 as needed -Lidoderm patch to left thigh daily -Otis 7.5/325 mg oral every 4 hours as needed f or pain -manageable Right AKA discomfort -05/23/2020-CT lower extremity - Above th e knee amputation changes with complex soft tissue fluid collection at the stum p site. There is loss of fatty medullary density at the stump site. Osteomyelitis is not excluded. C orrelate with MRI as clinically indicated. -IV antibiotics , appreciate infectious disease input -Pain medications as outlined above Peripheral neuropathy, phantom limb pain right l ower extremity -Gabapentin 300 mg oral at bedtime -amitriptyline 10 mg oral at bedtime -stable Antalgic/impaired gait -PT/OT -Gait training, improve endurance and strength -Transfer training -PMR following Falls -Fall precautions End-stage renal disease on hemodialysis -Nephrology following Subdural hematoma -Monitor mental status with opioids and other se dative medications Depression -monitoring Constipation -Monitor closely while patient is using opioid n arcotics -MiraLAX 17 g p.o. daily -Senna 1 tab p.o. daily All pertinent diagnostics/labs from the last 24 hours and during the course of the admission were reviewed. Plan discussed with the patient and the nurse. A ll questions were answered. Patient will be monitored for deleteriou s side effects associated with opioids and sedative medications. Me dications will be adjusted further clinical course. Risks versus benefits of opioid medications were reviewed to include, but not limited to respiratory depression, accid ental overdose, altered mental status, sudden , constipation which could result in bowel obstruction, seizures, withdrawal, dependency/addiction, risk for falls . Goals: Daily pain control. Case discussed with Dr Lofton whom agrees. 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: Total Prescriptions 28 Total Private Pay 0 Total Prescribers 4 Total Pharmacies 1 05/06/2020 1 05/06/2020 HYDROCODONE-ACETAMIN 10- 325 MG 30.0 7 [facility] SPA [id number] [facility] ([id number]) 0 42.86 MME Comm Ins [place] 04/20/2020 1 12/24/2019 ZOLPIDEM TARTRATE 10 MG TABLET 30.0 30 PE LAT [id number] [facility] (1602) 4 Comm Ins [place] 03/21/2020 1 12/24/2019 ZOLPIDEM TARTRATE 10 MG TABLET 30.0 30 PE LAT [id number] [facility] (1602) 3 Comm Ins [place] 02/20/2020 1 12/24/2019 ZOLPIDEM TARTRATE 10 MG TABLET 30.0 30 PE LAT [id number] [facility] (1602) 2 Comm Ins [place] 01/21/2020 1 12/24/2019 ZOLPIDEM TARTRATE 10 MG TABLET 30.0 30 PE LAT [id number] [facility] (1602) 1 Comm Ins [place] 12/24/2019 1 12/24/2019 ZOLPIDEM TARTRATE 10 MG TABLET 30.0 30 PE LAT [id number] [facility] (1602) 0 Comm Ins [place] 11/25/2019 1 07/07/2019 ZOLPIDEM TARTRATE 10 MG TABLET 30.0 30 PE LAT [id number] [facility] (1602) 5 Comm [id number] ([id number]) [address] [place] [address] at 1111 Electronically Signed by Herman Lofton MD on 0 05/29/20 at 2377 RPT #:[id number] END OF REPORT 2020-05-27 10:41:00-00:00 [facility] ([facility]) Wound Care Progress Note REPORT#:[id number] REPORT STATUS: Signed DATE:05/27/20 TIME: 1041 PATIENT: DARIEN GROSSMAN UNIT #: [id number] ROOM/BED: [place] [address] : 45 AGE: 74 SEX: M ATTEND: Rosa Curtis MD ADM AUTHOR: Shaila Gilbert * ALL edits or amendments must be made on the C-Note/computer document * Subjective Chief Complaint: FU R AKA wounds; c/o pain at stump Objective General Medications: Active Meds + DC'd Last 24 Hrs Hydrocodone Bitart/Acetaminophen 1 TAB Q4H PRN P RN PO Sertraline HCl 25 MG BEDTIME PO Albumin Human 12.5 GM ASDIR PRN IV Lidocaine HCl 0.5 ML ASDIR PRN I-DERMAL (CKD) Mannitol 12.5 GM ASDIR PRN IV Sodium Chloride 2,000 ML ASDIR PRN IV Sodium Chloride 10 ML ASDIR PRN IV Sodium Chloride 250 ML ASDIR PRN IV Piperacillin Sod/Tazobactam Sod 3.375 GM Q12H IV Sodium Chloride 100 ML Collagenase 1 APPLIC DAILY TOPICAL Lidocaine 1 PATCH DAILY TOPICAL Amitriptyline HCl 10 MG BEDTIME PO Triamcinolone Acetonide 40 MG PROCEDURE IM (CKD) Aspirin 81 MG DAILY PO Clopidogrel Bisulfate 75 MG DAILY PO Furosemide 40 MG DAILY PO Polyethylene Glycol 17 GM DAILY PO Senna 1 TAB DAILY PO (CKD) Venlafaxine HCl 75 MG DAILY PO Acetaminophen 650 MG Q6H PRN PRN PO Hydralazine HCl 10 MG Q6H PRN PRN PO Ondansetron HCl 4 MG TID PRN PRN SL Heparin Sodium 5,000 UNIT Q8H SUBQ Epoetin Donny-epbx 4,000 UNIT TuThSa@2100 SUBQ Gabapentin 300 MG BEDTIME PO Metoprolol Tartrate 25 MG BID PO Trazodone HCl 150 MG BEDTIME PO Zolpidem Tartrate 5 MG BEDTIME PRN PRN PO Nutrition assessment: The data set between the solid lines has been im ported from the dietitian's assessment. Any exceptions have been noted under Provider comments. BMI Calculated: 25.4 Nutrition related diagnosis: Nutrition diagnosis details: Nutrition problem: Increased nutrient needs Nutrition etiology: Chronic disease Nutrition signs and symptoms: ESRD ON HD Nutrition prescription: 1. C ontinue renal diet 2. D/C Nepro 1x/day 3. Encourage food ordering and monitor fo od intake 3. [place] food preferences within diet and encourage oral intake >75% 4. ADD LIQUACEL DAILY Dietitian name: Breann Olivera DIETITIAN Assessment completed: 05/26/20 Provider comments on imported dietitian assessme nt: Physical Exam General appearance: awake Skin: R AKA wound dehiscence on both medial late ral ends of stump ( abt 0.5x0.5x0.2 cm) w/ less slough; few superficial dehiscence areas at entire incision site. . MInimal erythema @ medial aspec t. Results Findings/Data: Current Medications Sig/Tatum Start time Last Medication Dose Route Stop Time Status Admin Hydrocodone Bitart/ 1 TAB Q4H PRN PRN 05/24 141 5 AC 05/27 Acetaminophen PO 06/10 1200 2058 Sertraline HCl 25 MG BEDTIME 05/23 2100 AC 05/12 6 PO 06/22 Albumin Human 12.5 GM ASDIR PRN 05/23 1415 AC IV 06/23 1413 Lidocaine HCl 0.5 ML ASDIR PRN 05/23 1415 CKD I-DERMAL 06/23 1413 Mannitol 12.5 GM ASDIR PRN 05/23 1415 AC IV 06/23 1413 Sodium Chloride 2,000 ML ASDIR PRN 05/23 1415 A C 05/27 IV 06/23 1413 1552 Sodium Chloride 10 ML ASDIR PRN 05/23 1415 AC 0 05/27 IV 06/22 1414 1553 Sodium Chloride 250 ML ASDIR PRN 05/23 1415 AC IV 06/22 1414 Piperacillin Sod/ 3.375 GM Q12H 05/23 1300 AC 0 05/27 Tazobactam Sod IV 05/30 1259 0105 Sodium Chloride 100 ML Collagenase 1 APPLIC DAILY 05/22 899 AC 05/27 TOPICAL 06/21 0859 0835 Lidocaine 1 PATCH DAILY 05/21 899 AC 05/27 TOPICAL 06/20 0859 0837 Amitriptyline HCl 10 MG BEDTIME 05/20 2099 AC 0 05/27 PO 06/19 Triamcinolone 40 MG PROCEDURE 05/20 1944 CKD Acetonide IM 06/20 1943 Aspirin 81 MG DAILY 05/20 899 AC 05/27 PO 06/19 1300 0838 Clopidogrel Bisulfate 75 MG DAILY 05/20 899 AC 05/27 PO 06/19 1300 0838 Furosemide 40 MG DAILY 05/20 899 AC 05/26 PO 06/19 1300 0831 Polyethylene Glycol 17 GM DAILY 05/20 899 AC 0 05/21 PO 06/19 1300 1016 Senna 1 TAB DAILY 05/20 899 CKD 05/21 PO 06/19 1300 1015 Venlafaxine HCl 75 MG DAILY 05/20 899 AC 05/27 PO 06/19 1300 0838 Acetaminophen 650 MG Q6H PRN PRN 05/20 0845 AC PO 06/19 0844 Hydralazine HCl 10 MG Q6H PRN PRN 05/20 0845 AC PO 06/19 0844 Ondansetron HCl 4 MG TID PRN PRN 05/20 0845 AC SL 06/19 0844 Heparin Sodium 5,000 UNIT Q8H 05/19 2200 AC SUBQ 06/19 1300 2107 Epoetin Donny-epbx 4,000 UNIT TuThSa@2100 05/19 2099 AC 05/26 SUBQ 06/19 1300 2104 Gabapentin 300 MG BEDTIME 05/19 2100 AC 05/27 PO 06/19 1300 2105 Metoprolol Tartrate 25 MG BID 05/19 2099 AC PO 06/19 1300 2105 Trazodone HCl 150 MG BEDTIME 05/19 2099 AC PO 06/19 1300 2206 Zolpidem Tartrate 5 MG BEDTIME PRN PRN 05/20 19 00 AC 05/27 PO 06/19 1300 205 Laboratory Tests: 05/27 0400 Chemistry Sodium (134 - 147 mEq/L) 138 Potassium (3.4 - 5.0 mEq/L) 3.7 Chloride (100 - 108 mEq/L) 103 Carbon Dioxide (21 - 33 mEq/l) 27 Anion Gap (0 - 20) 12 BUN (7 - 18 mg/dL) 41 H Creatinine (0.6 - 1.3 mg/dL) 4.4 H Glomerular Filtr Rate (70 - 80) 13.2 L Glucose (70 - 110 mg/dL) 84 Calcium (8.0 - 10.5 mg/dL) 9.3 Diagnosis, Assessment Plan Free Text A P: Right AKA stump cellulitis, w wound dehiscence- ( sp aspiration culture by IR of loculated fluid collection ) ; Superficial cx : Pseudomonas (R-Merrem), and CoN. Aspirate Cx neg. On IV Zosyn per ID. Santyl with xeroform to dehisced sites , cover w ith foam dressing daily. May start WVAC to sites once less than 20% slough. [ x] Optimize Nutrition and Glycemic Control [ x] Pressure relieving inte rventions (Low Air Mattress, Prevalon boot, Turn q2h ) [ x] Nursing to implement impaired skin integrit y care plan as per skin care protocol Coordinattion of care D/W [ ] Other MD's [ x ] P atient [ ] Family [ x] Nursing [ ] Case Management at 2233 RPT #:[id number] END OF REPORT 2020-05-27 06:11:00-00:00 [facility] Rehab Progress Note REPORT#:[id number] REPORT STATUS: Signed DATE:05/27/20 TIME: 610 PATIENT: DARIEN GROSSMAN UNIT #: [id number] ROOM/BED: [place] [address] : 45 AGE: 74 SEX: M ATTEND: Rosa Curtis MD ADM AUTHOR: Clint DunawayC * ALL edits or amendments must be made on the [employer]/computer document * Clint Dunaway PA-C 05/27/20 0611: Subjective Chief complaint: Rehab follow-up Generalized weakness Patient doing well Affect is improved Slept well BM+ Denies PATEL/N/V/D 14 systems reviewed and neg. except that above. Objective General VS: Vital Signs: Date Time Temp Pulse Resp B/P B/P Pulse O2 O2 F low FiO2 Mean Ox Delivery Rate 05/27 0043 98.1 68 16 152/71 97.9 99 05/26 2041 98.4 76 16 111/66 81.3 97 05/26 1526 99.1 66 18 139/66 90.4 96 05/26 0748 99.3 58 16 130/66 87.3 98 PATIENT WEIGHT: Weight (lb): 171 Weight (oz): 12.16 Weight (kg): 77.909 Medications: Active Meds + DC'd Last 24 Hrs Hydrocodone Bitart/Acetaminophen 1 TAB Q4H PRN P RN PO Sertraline HCl 25 MG BEDTIME PO Albumin Human 12.5 GM ASDIR PRN IV Lidocaine HCl 0.5 ML ASDIR PRN I-DERMAL (CKD) Mannitol 12.5 GM ASDIR PRN IV Sodium Chloride 2,000 ML ASDIR PRN IV Sodium Chloride 10 ML ASDIR PRN IV Sodium Chloride 250 ML ASDIR PRN IV Piperacillin Sod/Tazobactam Sod 3.375 GM Q12H IV Sodium Chloride 100 ML Collagenase 1 APPLIC DAILY TOPICAL Lidocaine 1 PATCH DAILY TOPICAL Amitriptyline HCl 10 MG BEDTIME PO Triamcinolone Acetonide 40 MG PROCEDURE IM (CKD) Aspirin 81 MG DAILY PO Clopidogrel Bisulfate 75 MG DAILY PO Furosemide 40 MG DAILY PO Polyethylene Glycol 17 GM DAILY PO Senna 1 TAB DAILY PO (CKD) Venlafaxine HCl 75 MG DAILY PO Acetaminophen 650 MG Q6H PRN PRN PO Hydralazine HCl 10 MG Q6H PRN PRN PO Ondansetron HCl 4 MG TID PRN PRN SL Heparin Sodium 5,000 UNIT Q8H SUBQ Epoetin Donny-epbx 4,000 UNIT TuThSa@2100 SUBQ Gabapentin 300 MG BEDTIME PO Metoprolol Tartrate 25 MG BID PO Trazodone HCl 150 MG BEDTIME PO Zolpidem Tartrate 5 MG BEDTIME PRN PRN PO Functional Progress Functional progress: PT daily note comment: S: P ATIENT AGREEABLE FOR THERAPY. Pt. EXPRESSED HE DOES NOT NEED TO A CAR TRANSFER UNTIL [place] SINCE HE FEELS CONFIDENT WITH IT FROM PRACTICING IT PRIOR TO BEING AT [facility] REHAB. O: PATINET PERFORMED EOB<>WC TRANSFER WITH SBA, VC TO SET WC CLOSE TO WC FOR SAFETY. Pt. INSTRUCTED ON WC<> COMMODE TRANSFER WITH SBA, VC TO SET WC CLOSE TO COMMOD E BEFORE STANDING FOR SAFETY. Pt. PROPELLED WC INDOORS/ OUTDOORS FOR 500 + FT WITH IND. Pt. PERFORMED 1 STEP/CURB OUTDOORS WITH RW W/ IND. Pt. AMBULATED RW FOR 20 FT, 150FT, S BA W/ WC DUE TO FATIGUE. Pt. PERORMED WC<>MOVEO STAND PIVOT TRANSFER W/ SBA, VC TO SET WC CLOSE TO MOVE BEFORE TRANSFER . Pt. PERFORMED MOVEO LLE PRESS FOR 20 REPS WITH 15% BODY WEIGHT FOR STRENGTHENING. A: PATIENT PERFORMED TREATMENT WELL, HOWEVER, P t. FEARFUL WHEN PERFORMING 1 CURB STEP WITH RW AND WHEN BEING INTRODUCED TO NEW EXERCISE EQUIPMENT. Pt. STILL REQUIRES SBA CUES IN ROOM WITH TRANSFERS FOR SAFETY. P: CONTINUE PLAN OF CARE. Physical Exam General appearance: alert, awake Psych: alert, normal affect, oriented x 3 HEENT: anicteric, mucosal membranes moist, pupil s reactive to light, sclera clear, NC/AT Neck: non-tender, supple, no JVD Cardiovascular: regular rate rhythm, S1/S2, no m urmur Respiratory: aerating well, clear bilaterally, c lear to auscultation Abdomen: bowel sounds presen t, non-distended, soft, non-tender, no mass palpable Skin: dry, normal temperature, L AKA incision w 2 open areas of dehiscence-no drainage, no odor. Musculoskeletal - general: Musculoskeletal - general: normal tone, no swel ling, MMT moves all against gravity. BUE 4/5, SHORT PIECE HANDLER GOOD, RHF 3+/5, LLE 4/5. L calf NT, No cords. TTP L lateral thigh above trochanter bursae. Neuro/CUSTODIAN MANAGER: alert, oriented X 3, CNII-XII intact, normal speech, reflexes equal bilat Results Findings/Data: Laboratory Tests: 05/27 0400 Chemistry Sodium (134 - 147 mEq/L) 138 Potassium (3.4 - 5.0 mEq/L) 3.7 Chloride (100 - 108 mEq/L) 103 Carbon Dioxide (21 - 33 mEq/l) 27 Anion Gap (0 - 20) 12 BUN (7 - 18 mg/dL) 41 H Creatinine (0.6 - 1.3 mg/dL) 4.4 H Glomerular Filtr Rate (70 - 80) 13.2 L Glucose (70 - 110 mg/dL) 84 Calcium (8.0 - 10.5 mg/dL) 9.3 Diagnosis, Assessment Plan Free Text A P: Assessment: Mechanical fall TBI with SDH, no surgical intervention required Stable acute L parafalcine SDH extending into the L tentorium with min left to right midline shift 04/03-Recent right AKA, previous right TKA compli cated by infection Impaired mobility and gait Generalized weakness Frequent falls 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 15 mL of blood-tinged fluid. 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 Unspecified anxiety disorder. Plan: -Comprehensive inpatient rehabilitation with physical, occupational and speech therapy 3 hours a day for 5 to 6 days per week-2 05/18 rehabilitation physician supervision-03/09 rehabilitat ion nursing care-Case management for safe discharge planning-Rehab MD to monitor comorbidities and f unctional progress. -Decubitus prevention-protective hydrating lotio n-turn every 2 hours-offload -Right AKA wound dehiscence- wound care consulted-Dr. Gilbert-for now Xeroform and Mepilex -Consult new life brace management/prosthetics -Strict fall and safety precaution -DVT prophylaxis-SCDs and subcutaneous heparin -GI prophylaxis-Protonix -Early mobilization-OOB to chair -Work on bed mobility, transfer training , ADLs, pre-gait and gait exercises as tolerable. 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 intake, check albumin 3.2 and prealbumin 13.1, 14.3, dietary consult, protein supplements . -Await consultants input, internal medicine, nep hrology, pain management, ID, wound care -Domenica for a total of 7 days-to be completed to efrain 05/21-completed -Continue right AKA incisional dressing care-wou nds looking better -Prosthetic company consulted for evaluation -Continue aspirin and Plavix-Lasix -History of depression/anxie ty continue BuSparVinodyrel, Effexor-office asst bring in patient's home Pristiq -Monitor hemoglobin on Epogen -Hemodialysis as per nephrology-Saturday -Blood pressure currently stable on current medi cation -Renal diet -Left hip pain-x-ray of the left hip and pelvis showed no acute osseous fracture. The hip joint spaces are preserved-sat itor -Elevated WBC-possible infec amado right NASEEM-culture wound pending-no fever-repeat CBC 05/21-given patient's history of staph infect ion prior will consult ID. Patient seen by ID-patient placed on vancomycin now discontinued -Right AKA wound dehiscence- Culture done-rare gram-negative bacilli-Santyl with xeroform to dehisced sites cover with foam dress ing daily-As per wound care -Right AKA stump cellulitis-R/O fluid collection , check CT extremity without contrast-Superficial cx: Pseudomonas (R-Merrem), and CoNS-ESR 114/CRP 192 significant elevated-On Cefepime, change to Zosy n as per ID -05/23-CT of RLE-CT(+) 6/6/4cm loculated fluid co llection Infectious disease believes this is more of a seroma. I discussed w ith ID Dr. Sierra and he agrees with vascular surgery consul tation. I would like to treat this conservatively as possible since patient on rehab. Continue Zosyn as per ID-HAS MIDLINE -05/24 ID ordered special procedures IR aspiratio n of fluid -Depression worse-patient's office manag er to bring in patient's home Prestiq- psychiatry consult-started o n Zoloft-monitor closely-patient upset and depressed and became more depressed after he learned about the results of the CT. -Depression improved-patient being treated for m jaylen depression recurrent and started on Zoloft-wean venlafaxine over time. Di scontinue buspirone. Continue trazodone and Ambien for insomnia-as per psychia try 05/24-Technically successful ultrasound-g uided aspiration of a right knee stump collection. 15 mL of blood-tinged fluid. Culture s pending-cont abx x 1 week total if aspirte cx negative as per ID -Patient seen by vascular surgery Dr. Bowling-no s urgical intervention at this time wait for cultures and continue antibiotics. -Labs reviewed -Hemoglobin better. On Epogen 3 times weekly -Renal following kidney function -Continue current medications -Continue brain injury and amputation IRF PM R Please see team note. Plan and goals discussed with the patient. I agree with the teams finding ELOS- [05/31] DC-Home with family-HH DME-HAS WC, TT 35 min>50% with discussing with patie nt about vascular surgery consultation recommendation, depression, psych input, progress, open wounds to right AKA, ID consult, continue IV antibio tic, rehab plan of care, goals, expectations, needs, and medical issues, examination. MAR and EMR reviewed. All Questions answered. Rehab attestation: Face to face exam completed. Treatment plan disc ussed with patient. Meets continued stay criteria. Agree with interdiscipl inary treatment plan. Sekou Curtis 05/27/20 0844: Attestations Physician Attestation Agree w/findings plan: Patient seen and examined by me. Agree with the findings and plan as documented by ZIA Granado at 1202 RPT #:[id number] END OF REPORT 2020-05-27 06:11:00-00:00 [facility] ([facility]) Rehab Progress Note REPORT#:[id number] REPORT STATUS: Signed DATE:05/27/20 TIME: 610 PATIENT: DARIEN GROSSMAN UNIT #: [id number] ROOM/BED: [place] [address] : 45 AGE: 74 SEX: M ATTEND: Rosa Curtis MD ADM AUTHOR: Clint Dunaway * ALL edits or amendments must be made on the [employer]/computer document * Clint Dunaway PA-C 05/27/20 0611: Subjective Chief complaint: Rehab follow-up Generalized weakness Patient doing well Affect is improved Slept well BM+ Denies PATEL/N/V/D 14 systems reviewed and neg. except that above. Objective General VS: Vital Signs: Date Time Temp Pulse Resp B/P B/P Pulse O2 O2 F low FiO2 Mean Ox Delivery Rate 05/27 0043 98.1 68 16 152/71 97.9 99 05/26 2041 98.4 76 16 111/66 81.3 97 05/26 1526 99.1 66 18 139/66 90.4 96 05/26 0748 99.3 58 16 130/66 87.3 98 PATIENT WEIGHT: Weight (lb): 171 Weight (oz): 12.16 Weight (kg): 77.909 Medications: Active Meds + DC'd Last 24 Hrs Hydrocodone Bitart/Acetaminophen 1 TAB Q4H PRN P RN PO Sertraline HCl 25 MG BEDTIME PO Albumin Human 12.5 GM ASDIR PRN IV Lidocaine HCl 0.5 ML ASDIR PRN I-DERMAL (CKD) Mannitol 12.5 GM ASDIR PRN IV Sodium Chloride 2,000 ML ASDIR PRN IV Sodium Chloride 10 ML ASDIR PRN IV Sodium Chloride 250 ML ASDIR PRN IV Piperacillin Sod/Tazobactam Sod 3.375 GM Q12H IV Sodium Chloride 100 ML Collagenase 1 APPLIC DAILY TOPICAL Lidocaine 1 PATCH DAILY TOPICAL Amitriptyline HCl 10 MG BEDTIME PO Triamcinolone Acetonide 40 MG PROCEDURE IM (CKD) Aspirin 81 MG DAILY PO Clopidogrel Bisulfate 75 MG DAILY PO Furosemide 40 MG DAILY PO Polyethylene Glycol 17 GM DAILY PO Senna 1 TAB DAILY PO (CKD) Venlafaxine HCl 75 MG DAILY PO Acetaminophen 650 MG Q6H PRN PRN PO Hydralazine HCl 10 MG Q6H PRN PRN PO Ondansetron HCl 4 MG TID PRN PRN SL Heparin Sodium 5,000 UNIT Q8H SUBQ Epoetin Donny-epbx 4,000 UNIT TuThSa@2100 SUBQ Gabapentin 300 MG BEDTIME PO Metoprolol Tartrate 25 MG BID PO Trazodone HCl 150 MG BEDTIME PO Zolpidem Tartrate 5 MG BEDTIME PRN PRN PO Functional Progress Functional progress: PT daily note comment: S: P ATIENT AGREEABLE FOR THERAPY. Pt. EXPRESSED HE DOES NOT NEED TO A CAR TRANSFER [place]IL [place] SINCE HE FEELS CONFIDENT WITH IT FROM PRACTICING IT PRIOR TO BEING AT [facility]. O: PATINET PERFORMED EOB<>WC TRANSFER WITH SBA, VC TO SET WC CLOSE TO WC FOR SAFETY. Pt. INSTRUCTED ON WC<> COMMODE TRANSFER WITH SBA, VC TO SET WC CLOSE TO COMMOD E BEFORE STANDING FOR SAFETY. Pt. PROPELLED WC INDOORS/ OUTDOORS FOR 500 + FT WITH IND. Pt. PERFORMED 1 STEP/CURB OUTDOORS WITH RW W/ IND. Pt. AMBULATED RW FOR 20 FT, 150FT, S BA W/ WC DUE TO FATIGUE. Pt. PERORMED WC<>MOVEO STAND PIVOT TRANSFER W/ SBA, VC TO SET WC CLOSE TO MOVE BEFORE TRANSFER . Pt. PERFORMED MOVEO LLE PRESS FOR 20 REPS WITH 15% BODY WEIGHT FOR STRENGTHENING. A: PATIENT PERFORMED TREATMENT WELL, HOWEVER, P t. FEARFUL WHEN PERFORMING 1 CURB STEP WITH RW AND WHEN BEING INTRODUCED TO NEW EXERCISE EQUIPMENT. Pt. STILL REQUIRES SBA CUES IN ROOM WITH TRANSFERS FOR SAFETY. P: CONTINUE PLAN OF CARE. Physical Exam General appearance: alert, awake Psych: alert, normal affect, oriented x 3 HEENT: anicteric, mucosal membranes moist, pupil s reactive to light, sclera clear, NC/AT Neck: non-tender, supple, no JVD Cardiovascular: regular rate rhythm, S1/S2, no m urmur Respiratory: aerating well, clear bilaterally, c lear to auscultation Abdomen: bowel sounds presen t, non-distended, soft, non-tender, no mass palpable Skin: dry, normal temperature, L AKA incision w 2 open areas of dehiscence-no drainage, no odor. Musculoskeletal - general: Musculoskeletal - general: normal tone, no swel ling, MMT moves all against gravity. BUE 4/5, SHORT PIECE HANDLER GOOD, RHF 3+/5, LLE 4/5. L calf NT, No cords. TTP L lateral thigh above trochanter bursae. Neuro/CUSTODIAN MANAGER: alert, oriented X 3, CNII-XII intact, normal speech, reflexes equal bilat Results Findings/Data: Laboratory Tests: 05/27 0400 Chemistry Sodium (134 - 147 mEq/L) 138 Potassium (3.4 - 5.0 mEq/L) 3.7 Chloride (100 - 108 mEq/L) 103 Carbon Dioxide (21 - 33 mEq/l) 27 Anion Gap (0 - 20) 12 BUN (7 - 18 mg/dL) 41 H Creatinine (0.6 - 1.3 mg/dL) 4.4 H Glomerular Filtr Rate (70 - 80) 13.2 L Glucose (70 - 110 mg/dL) 84 Calcium (8.0 - 10.5 mg/dL) 9.3 Diagnosis, Assessment Plan Free Text A P: Assessment: Mechanical fall TBI with SDH, no surgical intervention required Stable acute L parafalcine SDH extending into the L tentorium with min left to right midline shift 04/03-Recent right AKA, previous right TKA compli cated by infection Impaired mobility and gait Generalized weakness Frequent falls 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 15 mL of blood-tinged fluid. 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 Unspecified anxiety disorder. Plan: -Comprehensive inpatient rehabilitation with physical, occupational and speech therapy 3 hours a day for 5 to 6 days per week-2 05/18 rehabilitation physician supervision-03/09 rehabilitat ion nursing care-Case management for safe discharge planning-Rehab MD to monitor comorbidities and f unctional progress. -Decubitus prevention-protective hydrating lotio n-turn every 2 hours-offload -Right AKA wound dehiscence- wound care consulted-Dr. Gilbert-for now Xeroform and Mepilex -Consult new life brace management/prosthetics -Strict fall and safety precaution -DVT prophylaxis-SCDs and subcutaneous heparin -GI prophylaxis-Protonix -Early mobilization-OOB to chair -Work on bed mobility, transfer training , ADLs, pre-gait and gait exercises as tolerable. 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 intake, check albumin 3.2 and prealbumin 13.1, 14.3, dietary consult, protein supplements . -Await consultants input, internal medicine, nep hrology, pain management, ID, wound care -Domenica for a total of 7 days-to be completed to efrain 05/21-completed -Continue right AKA incisional dressing care-wou nds looking better -Prosthetic company consulted for evaluation -Continue aspirin and Plavix-Lasix -History of depression/anxie ty continue BuSpar, Desyrel, Effexor-office asst bring in patient's home Pristiq -Monitor hemoglobin on Epogen -Hemodialysis as per nephrology-Saturday -Blood pressure currently stable on current medi cation -Renal diet -Left hip pain-x-ray of the left hip and pelvis showed no acute osseous fracture. The hip joint spaces are preserved-sat itor -Elevated WBC-possible infec amado right NASEEM-culture wound pending-no fever-repeat CBC 05/21-given patient's history of staph infect ion prior will consult ID. Patient seen by ID-patient placed on vancomycin now discontinued -Right AKA wound dehiscence- Culture done-rare gram-negative bacilli-Santyl with xeroform to dehisced sites cover with foam dress ing daily-As per wound care -Right AKA stump cellulitis-R/O fluid collection , check CT extremity without contrast-Superficial cx: Pseudomonas (R-Merrem), and CoNS-ESR 114/CRP 192 significant elevated-On Cefepime, change to Zosy n as per ID -05/23-CT of RLE-CT(+) 6/6/4cm loculated fluid co llection Infectious disease believes this is more of a seroma. I discussed w ith ID Dr. Sierra and he agrees with vascular surgery jose crzu lara. I would like to treat this conservatively as possible since patient on rehab. Continue Zosyn as per ID-HAS MIDLINE -05/24 ID ordered special procedures IR aspiratio n of fluid -Depression worse-patient's office manag er to bring in patient's home Prestiq- psychiatry consult-started o n Zoloft-monitor closely-patient upset and depressed and became more depressed after he learned about the results of the CT. -Depression improved-patient being treated for m jaylen depression recurrent and started on Zoloft-wean venlafaxine over time. Di scontinue buspirone. Continue trazodone and Ambien for insomnia-as per psychia try 05/24-Technically successful ultrasound-g uided aspiration of a right knee stump collection. 15 mL of blood-tinged fluid. Culture s pending-cont abx x 1 week total if aspirte cx negative as per ID -Patient seen by vascular surgery Dr. Bowling-no s urgical intervention at this time wait for cultures and continue antibiotics. -Labs reviewed -Hemoglobin better. On Epogen 3 times weekly -Renal following kidney function -Continue current medications -Continue brain injury and amputation IRF PM R Please see team note. Plan and goals discussed with the patient. I agree with the teams finding ELOS- [05/31] DC-Home with family- DME-HAS WC, TT 35 min>50% with discussing with patie nt about vascular surgery consultation recommendation, depression, psych input, progress, open wounds to right AKA, ID consult, continue IV antibio tic, rehab plan of care, goals, expectations, needs, and medical issues, examination. MAR and EMR reviewed. All Questions answered. Rehab attestation: Face to face exam completed. Treatment plan disc ussed with patient. Meets continued stay criteria. Agree with interdiscipl inary treatment plan. Sekou Curtis 05/27/20 0844: Attestations Physician Attestation Agree w/findings plan: Patient seen and examined by me. Agree with the findings and plan as documented by ZIA Granado at 1202 at 2112 RPT #:[id number] END OF REPORT 2020-05-27 01:48:00-00:00 [facility] ([facility]) Clinical Note REPORT#:[id number] REPORT STATUS: Signed DATE:05/27/20 TIME: 0148 PATIENT: DARIEN GROSSMAN UNIT #: [id number] ROOM/BED: [place] [address] : 45 AGE: 74 SEX: M ATTEND: Rosa Curtis MD ADM AUTHOR: Danny Keith MD * ALL edits or amendments must be made on the C-Note/computer document * Clinical Note Note: 74-year-old male 1. Fall 2. Subdural hematoma 3. TBI (traumatic brain injury) 4. History of right above knee amputation (Onse t: 04/03/20) 5. ESRD on dialysis 6. History of coronary artery disease 7. History of coronary angioplasty with inserti on of stent 8. HLD (hyperlipidemia) 9. Anemia of chronic disease 10. Frequent falls 11. Hypoalbuminemia 12. Leukocytosis 13. Limb pain 14. Impaired functional mobility, balance, gait , and endurance 05/24: Underwent ultrasound guided aspiration of superficial fluid collection and 15 cc of bloody fluid removed. Continue with pain control and IV antibiotics. Continue with renal diet. Blood pre ssure is stable. 05/25: Underwent US guided aspiration of right AK A stump yesterday. Doing well today. Nephrology evaluation noted and continue with hemodialysis. Continue with rehab care. Wound care evaluation noted and continue with wound care. 05/26: Right stump pain and phantom pain. Partici fay in rehab. 05/27: Stable. No new complaints. Continue presen t care. Plan We will continue with telemetry, BP control, gly cemic control, pain control, electrolyte control, DVT/GI prophylaxis, repeat labs. PT/OT/ST. Wound care. Electronically Signed by Danny Keith MD 06/01/20 at 1322 RPT #:[id number] END OF REPORT 2020-05-26 17:03:00-00:00 [facility] ([facility]) Wound Care Progress Note REPORT#:[id number] REPORT STATUS: Signed DATE:05/26/20 TIME: 1703 PATIENT: DARIEN GROSSMAN UNIT #: [id number] ROOM/BED: [facility]8-1 : 45 AGE: 74 SEX: M ATTEND: Rosa Curtis MD ADM AUTHOR: Shaila Gilbert * ALL edits or amendments must be made on the C-Note/computer document * Subjective Chief Complaint: FU R AKA wounds; c/o pain at stump Objective General Medications: Active Meds + DC'd Last 24 Hrs Hydrocodone Bitart/Acetaminophen 1 TAB Q4H PRN P RN PO Sertraline HCl 25 MG BEDTIME PO Albumin Human 12.5 GM ASDIR PRN IV Lidocaine HCl 0.5 ML ASDIR PRN I-DERMAL (CKD) Mannitol 12.5 GM ASDIR PRN IV Sodium Chloride 2,000 ML ASDIR PRN IV Sodium Chloride 10 ML ASDIR PRN IV Sodium Chloride 250 ML ASDIR PRN IV Piperacillin Sod/Tazobactam Sod 3.375 GM Q12H IV Sodium Chloride 100 ML Collagenase 1 APPLIC DAILY TOPICAL Lidocaine 1 PATCH DAILY TOPICAL Amitriptyline HCl 10 MG BEDTIME PO Triamcinolone Acetonide 40 MG PROCEDURE IM (CKD) Aspirin 81 MG DAILY PO Clopidogrel Bisulfate 75 MG DAILY PO Furosemide 40 MG DAILY PO Polyethylene Glycol 17 GM DAILY PO Senna 1 TAB DAILY PO (CKD) Venlafaxine HCl 75 MG DAILY PO Acetaminophen 650 MG Q6H PRN PRN PO Hydralazine HCl 10 MG Q6H PRN PRN PO Ondansetron HCl 4 MG TID PRN PRN SL Heparin Sodium 5,000 UNIT Q8H SUBQ Epoetin Donny-epbx 4,000 UNIT TuThSa@2100 SUBQ Gabapentin 300 MG BEDTIME PO Metoprolol Tartrate 25 MG BID PO Trazodone HCl 150 MG BEDTIME PO Zolpidem Tartrate 5 MG BEDTIME PRN PRN PO Nutrition assessment: The data set between the solid lines has been im ported from the dietitian's assessment. Any exceptions have been noted under Provider comments. BMI Calculated: 25.4 Nutrition related diagnosis: Nutrition diagnosis details: Nutrition problem: Increased nutrient needs Nutrition etiology: Chronic disease Nutrition signs and symptoms: ESRD ON HD Nutrition prescription: 1. C ontinue renal diet 2. D/C Nepro 1x/day 3. Encourage food ordering and monitor fo od intake 3. [place] food preferences within diet and encourage oral intake >75% 4. ADD LIQUACEL DAILY Dietitian name: Breann Olivera DIETITIAN Assessment completed: 05/26/20 Provider comments on imported dietitian assessme nt: Physical Exam General appearance: awake Skin: R AKA wound dehiscence on both medial late ral ends of stump ( abt 0.5x0.5x0.2 cm) w/ 50% slough; few superficial d ehiscence areas at entire incision site. . MInimal erythema @ medial aspec t. Results Findings/Data: Current Medications Sig/Tatum Start time Last Medication Dose Route Stop Time Status Admin Hydrocodone Bitart/ 1 TAB Q4H PRN PRN 05/24 141 5 AC 05/26 Acetaminophen PO 06/10 1200 1505 Sertraline HCl 25 MG BEDTIME 05/23 2100 AC 05/12 4 PO 06/22 Albumin Human 12.5 GM ASDIR PRN 05/23 1415 AC IV 06/23 1413 Lidocaine HCl 0.5 ML ASDIR PRN 05/23 1415 CKD I-DERMAL 06/23 141 Mannitol 12.5 GM ASDIR PRN 05/23 1415 AC IV 06/23 1413 Sodium Chloride 2,000 ML ASDIR PRN 05/23 1415 A C 05/25 IV 06/23 1413 1423 Sodium Chloride 10 ML ASDIR PRN 05/23 1415 AC 0 05/25 IV 06/22 1414 1424 Sodium Chloride 250 ML ASDIR PRN 05/23 1415 AC IV 06/22 1414 Piperacillin Sod/ 3.375 GM Q12H 05/23 1300 AC 05/26 Tazobactam Sod IV 05/30 1259 1453 Sodium Chloride 100 ML Collagenase 1 APPLIC DAILY 05/22 899 AC 05/26 TOPICAL 06/21 0859 0831 Lidocaine 1 PATCH DAILY 05/21 899 AC 05/26 TOPICAL 06/20 0859 0832 Amitriptyline HCl 10 MG BEDTIME 05/20 2099 AC 0 05/25 PO 06/19 2052022 Triamcinolone 40 MG PROCEDURE 05/20 1944 CKD Acetonide IM 06/20 1943 Aspirin 81 MG DAILY 05/20 899 AC 05/26 PO 06/19 1300 0830 Clopidogrel Bisulfate 75 MG DAILY 05/20 899 AC 05/26 PO 06/19 1300 0831 Furosemide 40 MG DAILY 05/20 899 AC 05/26 PO 06/19 1300 0831 Polyethylene Glycol 17 GM DAILY 05/20 899 AC 0 05/21 PO 06/19 1300 1016 Senna 1 TAB DAILY 05/20 899 CKD 05/21 PO 06/19 1300 1015 Venlafaxine HCl 75 MG DAILY 05/20 899 AC 05/26 PO 06/19 1300 0832 Acetaminophen 650 MG Q6H PRN PRN 05/20 0845 AC PO 06/19 0844 Hydralazine HCl 10 MG Q6H PRN PRN 05/20 0845 AC PO 06/19 0844 Ondansetron HCl 4 MG TID PRN PRN 05/20 0845 AC SL 06/19 0844 Heparin Sodium 5,000 UNIT Q8H 05/19 220 AC SUBQ 09 1300 1505 Epoetin Donny-epbx 4,000 UNIT TuThSa@2100 05/19 2100 AC 05/24 SUBQ 06/19 1300 2059 Gabapentin 300 MG BEDTIME 05/19 2099 AC 05/25 PO 06/19 1300 202 Metoprolol Tartrate 25 MG BID 05/19 2099 AC PO 06/19 1300 0830 Trazodone HCl 150 MG BEDTIME 05/19 2099 AC 05/12 4 PO 06/19 1300 202 Zolpidem Tartrate 5 MG BEDTIME PRN PRN 05/19 20 00 AC 05/25 PO 06/19 1300 2028 Diagnosis, Assessment Plan Free Text A P: Right AKA stump cellulitis, w wound dehiscence- ( sp aspiration culture by IR of loculated fluid collection ) ; Superficial cx : Pseudomonas (R-Merrem), and CoN. Aspirate Cx neg. On IV Zosyn per ID. Santyl with xeroform to dehisced sites , cover w ith foam dressing daily. May start WVAC to sites once less than 20% s srikanth. Star pulse lavage if tolerated. [ x] Optimize Nutrition and Glycemic Control [ x] Pressure relieving inte rventions (Low Air Mattress, Prevalon boot, Turn q2h ) [ x] Nursing to implement impaired skin integrit y care plan as per skin care protocol Coordinattion of care D/W [ ] Other MD's [ x ] P atient [ ] Family [ ] Nursing [ ] Case Management at 2111 RPT #:[id number] END OF REPORT 2020-05-26 14:57:00-00:00 [facility]L [facility] Prog. Note REPORT#:[id number] REPORT STATUS: Signed DATE:05/26/20 TIME: 1456 PATIENT: DARIEN GROSSMAN UNIT #: [id number] ROOM/BED: [place] [address] : 45 AGE: 74 SEX: M ATTEND: Sekou Curtis MD ADM AUTHOR: Javier Meek NP * ALL edits or amendments must be made on the C-Note/computer document * Subjective Chief Complaint: Right AKA Possible depression Review of Systems Constitutional: Denies: chills, fever. ENT: Denies: earache, nasal congestion, sore throat. Respiratory: Denies: hemoptysis, parox no cturnal dyspnea, pleurisy, pleuritic pain, pneumonia , SOB, wheezing. Cardiovascular: Denies: chest pain, palpitations. GI: Denies: abdominal pain, nausea, vomiting. : Denies: flank pain, frequency, hematuria. Musculoskeletal: Denies: extremity pain, extr emity swelling, joint pain, lumbar pain, neck pain. Neuro: Denies: change in LOC, confusion, dizziness, foc al weakness, gait problem, headache, lightheaded, numbness, seizure, slurre d speech, spinning sensation, syncope, unable to speak, vision change. Psych: Denies: agitation, anxiety, auditory hallucinati on, change in mental status, confusion, delusional, depre ssion, homicidal ideation, hostile, insomnia, stress , suicidal ideation, visual hallucination. All systems rev neg: except as marked Objective General VS/I O: Vital Signs Date Temp Pulse Resp B/P B/P Mean Pulse Ox FiO 2 05/25-05/26 36.4-37.4 58-71 15-18 121-132/66-71 85.8-91.5 96-98 Last Documented: Result Date Time Pulse Ox 98 05/26 0748 B/P 130/66 05/26 0748 B/P Mean 87.3 05/26 0748 Temp 37.4 05/26 0748 Pulse 58 05/26 0748 Resp 16 05/26 0748 O2 Delivery Room air 05/24 1938 24 hour I O ending at 0700: 05/26 0700 05/25 1900 Intake Total 240 940 Output Total 2234 Balance -1993 940 Intake, Oral 240 940 Number 1 Bowel Movements Number Voids 1 Output, 2234 Hemodialysis PATIENT WEIGHT: Weight (lb): 171 Weight (oz): 12.16 Weight (kg): 77.909 Medications: Active Meds + DC'd Last 24 Hrs Hydrocodone Bitart/Acetaminophen 1 TAB Q4H PRN P RN PO Sertraline HCl 25 MG BEDTIME PO Albumin Human 12.5 GM ASDIR PRN IV Lidocaine HCl 0.5 ML ASDIR PRN I-DERMAL (CKD) Mannitol 12.5 GM ASDIR PRN IV Sodium Chloride 2,000 ML ASDIR PRN IV Sodium Chloride 10 ML ASDIR PRN IV Sodium Chloride 250 ML ASDIR PRN IV Piperacillin Sod/Tazobactam Sod 3.375 GM Q12H IV Sodium Chloride 100 ML Collagenase 1 APPLIC DAILY TOPICAL Lidocaine 1 PATCH DAILY TOPICAL Amitriptyline HCl 10 MG BEDTIME PO Triamcinolone Acetonide 40 MG PROCEDURE IM (CKD) Aspirin 81 MG DAILY PO Clopidogrel Bisulfate 75 MG DAILY PO Furosemide 40 MG DAILY PO Polyethylene Glycol 17 GM DAILY PO Senna 1 TAB DAILY PO (CKD) Venlafaxine HCl 75 MG DAILY PO Acetaminophen 650 MG Q6H PRN PRN PO Hydralazine HCl 10 MG Q6H PRN PRN PO Ondansetron HCl 4 MG TID PRN PRN SL Heparin Sodium 5,000 UNIT Q8H SUBQ Epoetin Donny-epbx 4,000 UNIT TuThSa@2100 SUBQ Gabapentin 300 MG BEDTIME PO Metoprolol Tartrate 25 MG BID PO Trazodone HCl 150 MG BEDTIME PO Zolpidem Tartrate 5 MG BEDTIME PRN PRN PO Physical Exam Neck: no JVD Cardiovascular: regular rate rhythm Respiratory: aerating well, clear to auscultatio n Abdomen: non-tender, normal bowel sounds, soft Extremities: Extremities: RT AKA Neuro/CUSTODIAN MANAGER: alert, oriented x 3 Skin: dry, normal temperature Psychiatry: depressed, normal judgement/insight Diagnosis, Assessment Plan Free Text DxA P Notes Free text DxA P notes: Assessment: 1.Mechanical fall 2.Traumatic brain injury with subdural hematoma 3. Right AKA pulmonary 2020 4. IMpaired mobility/Impaired gait 5. History of depression 6. Generalized weakness 7. Phantom pain 8. End-stage renal disease on hemodialysis 3 day s a week 9. Anemia 10. History of coronary artery disease, hyperten willy, and hyperlipidemia 05/21/20 Patient's doing well Sitting in a wheelchair Participating in therapy Family visiting at the bedside 05/22/20 Patient participating in therapy daily Reportedly patient is depressed He answered all my questions but seems to be sad May 23, 2020 No leukocytosis, anemia Continue to monitor renal function CT of the right femur without contrast: Bmbys-qsv-[id number] amputation changes with complex soft tissue fluid collection at the stump site. There is loss of fatty medullary density at the stump site. Osteomyelit is is not excluded. Correlate with MRI. Continue wound care May 24, 2020 The patient underwent ultrasound-guided aspirati on of superficial fluid collection May 25, 2020 Patient was started on Zoloft and venlafaxine Continue psychiatric medications Supportive psychotherapy for anxiety and depress ion Status post US guided aspiration of right AKA st ump yesterday. Continue hemodialysis and wound care Monitor H H Continue working with rehab May 26, 2020 Complaining of right stump pain, neuropathy and phantom limb pain as per pain management Working with rehab, better mood Hemodialysis yesterday Plan of care: -Continue with comprehensive inpatient rehabilit [facility] rehab team -Pain control -Fall precaution -DVT prophylaxis subcu heparin -GI prophylaxis patient currently on Protonix -Pain control as pain management -Seizure precaution patient on Keppra -Continues present medications -Monitor labs -Plan of care discussed with the patient, galina marcano nurse, and Dr. Cavazos. Electronically Signed by Javier Meek NP on 0 05/28/20 at 1154 RPT #:[id number] END OF REPORT 2020-05-26 14:57:00-00:00 [facility] Prog. Note REPORT#:[id number] REPORT STATUS: Signed DATE:05/26/20 TIME: 1456 PATIENT: DARIEN GROSSMAN UNIT #: [id number] ROOM/BED: [place] [address] : 45 AGE: 74 SEX: M ATTEND: Rosa Curtis MD ADM AUTHOR: Javier Meek MONOGRAM MAKER * ALL edits or amendments must be made on the C-Note/computer document * Javier Meek 05/26/20 1457: Subjective Chief Complaint: Right AKA Possible depression Review of Systems Constitutional: Denies: chills, fever. ENT: Denies: earache, nasal congestion, sore throat. Respiratory: Denies: hemoptysis, parox no cturnal dyspnea, pleurisy, pleuritic pain, pneumonia , SOB, wheezing. Cardiovascular: Denies: chest pain, palpitations. GI: Denies: abdominal pain, nausea, vomiting. : Denies: flank pain, frequency, hematuria. Musculoskeletal: Denies: extremity pain, extr emity swelling, joint pain, lumbar pain, neck pain. Neuro: Denies: change in LOC, confusion, dizziness, foc al weakness, gait problem, headache, lightheaded, numbness, seizure, slurre d speech, spinning sensation, syncope, unable to speak, vision change. Psych: Denies: agitation, anxiety, auditory hallucinati on, change in mental status, confusion, delusional, depre ssion, homicidal ideation, hostile, insomnia, stress , suicidal ideation, visual hallucination. All systems rev neg: except as marked Objective General VS/I O: Vital Signs Date Temp Pulse Resp B/P B/P Mean Pulse Ox FiO2 05/25-05/26 36.4-37.4 58-71 15-18 121-132/66-71 85.8-91.5 96-98 Last Documented: Result Date Time Pulse Ox 98 05/26 0748 B/P 130/66 05/26 0748 B/P Mean 87.3 05/26 0748 Temp 37.4 05/26 0748 Pulse 58 05/26 0748 Resp 16 05/26 0748 O2 Delivery Room air 05/24 193 24 hour I O ending at 0700: 05/26 0700 05/25 1900 Intake Total 240 940 Output Total 2234 -1993 940 Intake, Oral 240 940 Number 1 Bowel Movements Number Voids 1 Output, 2234 Hemodialysis PATIENT WEIGHT: Weight (lb): 171 Weight (oz): 12.16 Weight (kg): 77.909 Medications: Active Meds + DC'd Last 24 Hrs Hydrocodone Bitart/Acetaminophen 1 TAB Q4H PRN P RN PO Sertraline HCl 25 MG BEDTIME PO Albumin Human 12.5 GM ASDIR PRN IV Lidocaine HCl 0.5 ML ASDIR PRN I-DERMAL (CKD) Mannitol 12.5 GM ASDIR PRN IV Sodium Chloride 2,000 ML ASDIR PRN IV Sodium Chloride 10 ML ASDIR PRN IV Sodium Chloride 250 ML ASDIR PRN IV Piperacillin Sod/Tazobactam Sod 3.375 GM Q12H IV Sodium Chloride 100 ML Collagenase 1 APPLIC DAILY TOPICAL Lidocaine 1 PATCH DAILY TOPICAL Amitriptyline HCl 10 MG BEDTIME PO Triamcinolone Acetonide 40 MG PROCEDURE IM (CKD) Aspirin 81 MG DAILY PO Clopidogrel Bisulfate 75 MG DAILY PO Furosemide 40 MG DAILY PO Polyethylene Glycol 17 GM DAILY PO Senna 1 TAB DAILY PO (CKD) Venlafaxine HCl 75 MG DAILY PO Acetaminophen 650 MG Q6H PRN PRN PO Hydralazine HCl 10 MG Q6H PRN PRN PO Ondansetron HCl 4 MG TID PRN PRN SL Heparin Sodium 5,000 UNIT Q8H SUBQ Epoetin Donny-epbx 4,000 UNIT TuThSa@2100 SUBQ Gabapentin 300 MG BEDTIME PO Metoprolol Tartrate 25 MG BID PO Trazodone HCl 150 MG BEDTIME PO Zolpidem Tartrate 5 MG BEDTIME PRN PRN PO Physical Exam Neck: no JVD Cardiovascular: regular rate rhythm Respiratory: aerating well, clear to auscultatio n Abdomen: non-tender, normal bowel sounds, soft Extremities: Extremities: RT AKA Neuro/CUSTODIAN MANAGER: alert, oriented x 3 Skin: dry, normal temperature Psychiatry: depressed, normal judgement/insight Diagnosis, Assessment Plan Free Text DxA P Notes Free text DxA P notes: Assessment: 1.Mechanical fall 2.Traumatic brain injury with subdural hematoma 3. Right AKA pulmonary 2020 4. IMpaired mobility/Impaired gait 5. History of depression 6. Generalized weakness 7. Phantom pain 8. End-stage renal disease on hemodialysis 3 day s a week 9. Anemia 10. History of coronary artery disease, hyperten willy, and hyperlipidemia 05/21/20 Patient's doing well Sitting in a wheelchair Participating in therapy Family visiting at the bedside 05/22/20 Patient participating in therapy daily Reportedly patient is depressed He answered all my questions but seems to be sad May 23, 2020 No leukocytosis, anemia Continue to monitor renal function CT of the right femur without contrast: [id number] amputation changes with complex soft tissue fluid collection at the stump site. There is loss of fatty medullary density at the stump site. Osteomyelit is is not excluded. Correlate with MRI. Continue wound care May 24, 2020 The patient underwent ultrasound-guided aspirati on of superficial fluid collection May 25, 2020 Patient was started on Zoloft and venlafaxine Continue psychiatric medications Supportive psychotherapy for anxiety and depress ion Status post US guided aspiration of right AKA st ump yesterday. Continue hemodialysis and wound care Monitor H H Continue working with rehab May 26, 2020 Complaining of right stump pain, neuropathy and phantom limb pain as per pain management Working with rehab, better mood Hemodialysis yesterday Plan of care: -Continue with comprehensive inpatient rehabilit [facility] rehab team -Pain control -Fall precaution -DVT prophylaxis subcu heparin -GI prophylaxis patient currently on Protonix -Pain control as pain management -Seizure precaution patient on Keppra -Continues present medications -Monitor labs -Plan of care discussed with the patient, galina palma'lennox nurse, and Dr. Cavazos. Danny Cavazos 05/28/20 2108: Attestations Physician Attestation Agree w/findings plan: Patient seen and examined on 05/26/2020. I agree with the findings and plan as documented by JOSE Meek. Plan of care coordinat ed with JOSE Meek. Pertinent labs, Imaging, and store sales consultant evaluations review ed. 74-year-old male was admitted to inpatient rehab for comprehensive rehabilitation. He is complaining of right stump pain, neuropathy and phantom limb pain as per pain management. He is working with rehab and his mood is better today. He underwent hemodialysis yesterda y. We will continue with hemodialysis and wound care, comprehensive inpat ient rehabilitation was per rehab team, pain control, fa ll precautions, DVT prophylaxis with subcu heparin, GI prophylaxis with Protonix, pain control as pa in management, seizure precautions with Keppra, and present medications . We will continue to monitor his labs. Electronically Signed by Javier Meek NP on 0 05/28/20 at 1154 RPT #:[id number] END OF REPORT 2020-05-26 14:57:00-00:00 [facility] Prog. Note REPORT#:[id number] REPORT STATUS: Signed DATE:05/26/20 TIME: 1456 PATIENT: DARIEN GROSSMAN UNIT #: [id number] ROOM/BED: [place] [address] : 45 AGE: 74 SEX: M ATTEND: Rosa Curtis MD ADM AUTHOR: Javier Meek NP * ALL edits or amendments must be made on the C-Note/computer document * Javier Meek 05/26/20 1457: Subjective Chief Complaint: Right AKA Possible depression Review of Systems Constitutional: Denies: chills, fever. ENT: Denies: earache, nasal congestion, sore throat. Respiratory: Denies: hemoptysis, parox no cturnal dyspnea, pleurisy, pleuritic pain, pneumonia , SOB, wheezing. Cardiovascular: Denies: chest pain, palpitations. GI: Denies: abdominal pain, nausea, vomiting. : Denies: flank pain, frequency, hematuria. Musculoskeletal: Denies: extremity pain, extr emity swelling, joint pain, lumbar pain, neck pain. Neuro: Denies: change in LOC, confusion, dizziness, foc al weakness, gait problem, headache, lightheaded, numbness, seizure, slurre d speech, spinning sensation, syncope, unable to speak, vision change. Psych: Denies: agitation, anxiety, auditory hallucinati on, change in mental status, confusion, delusional, depre ssion, homicidal ideation, hostile, insomnia, stress , suicidal ideation, visual hallucination. All systems rev neg: except as marked Objective General VS/I O: Vital Signs Date Temp Pulse Resp B/P B/P Mean Pulse Ox FiO 2 05/25-05/26 36.4-37.4 58-71 15-18 121-132/66-71 85.8-91.5 96-98 Last Documented: Result Date Time Pulse Ox 98 05/26 0748 B/P 130/66 05/26 0748 B/P Mean 87.3 05/26 0748 Temp 37.4 05/26 0748 Pulse 58 05/26 0748 Resp 16 05/26 0748 O2 Delivery Room air 05/24 1938 24 hour I O ending at 0700: 05/26 0700 05/25 1900 Intake Total 240 940 Output Total 2234 Balance -1993 940 Intake, Oral 240 940 Number 1 Bowel Movements Number Voids 1 Output, 2234 Hemodialysis PATIENT WEIGHT: Weight (lb): 171 Weight (oz): 12.16 Weight (kg): 77.909 Medications: Active Meds + DC'd Last 24 Hrs Hydrocodone Bitart/Acetaminophen 1 TAB Q4H PRN P RN PO Sertraline HCl 25 MG BEDTIME PO Albumin Human 12.5 GM ASDIR PRN IV Lidocaine HCl 0.5 ML ASDIR PRN I-DERMAL (CKD) Mannitol 12.5 GM ASDIR PRN IV Sodium Chloride 2,000 ML ASDIR PRN IV Sodium Chloride 10 ML ASDIR PRN IV Sodium Chloride 250 ML ASDIR PRN IV Piperacillin Sod/Tazobactam Sod 3.375 GM Q12H IV Sodium Chloride 100 ML Collagenase 1 APPLIC DAILY TOPICAL Lidocaine 1 PATCH DAILY TOPICAL Amitriptyline HCl 10 MG BEDTIME PO Triamcinolone Acetonide 40 MG PROCEDURE IM (CKD) Aspirin 81 MG DAILY PO Clopidogrel Bisulfate 75 MG DAILY PO Furosemide 40 MG DAILY PO Polyethylene Glycol 17 GM DAILY PO Senna 1 TAB DAILY PO (CKD) Venlafaxine HCl 75 MG DAILY PO Acetaminophen 650 MG Q6H PRN PRN PO Hydralazine HCl 10 MG Q6H PRN PRN PO Ondansetron HCl 4 MG TID PRN PRN SL Heparin Sodium 5,000 UNIT Q8H SUBQ Epoetin Donny-epbx 4,000 UNIT TuThSa@2100 SUBQ Gabapentin 300 MG BEDTIME PO Metoprolol Tartrate 25 MG BID PO Trazodone HCl 150 MG BEDTIME PO Zolpidem Tartrate 5 MG BEDTIME PRN PRN PO Physical Exam Neck: no JVD Cardiovascular: regular rate rhythm Respiratory: aerating well, clear to auscultatio n Abdomen: non-tender, normal bowel sounds, soft Extremities: Extremities: RT AKA Neuro/CUSTODIAN MANAGER: alert, oriented x 3 Skin: dry, normal temperature Psychiatry: depressed, normal judgement/insight Diagnosis, Assessment Plan Free Text DxA P Notes Free text DxA P notes: Assessment: 1.Mechanical fall 2.Traumatic brain injury with subdural hematoma 3. Right AKA pulmonary 2020 4. IMpaired mobility/Impaired gait 5. History of depression 6. Generalized weakness 7. Phantom pain 8. End-stage renal disease on hemodialysis 3 day s a week 9. Anemia 10. History of coronary artery disease, hyperten willy, and hyperlipidemia 05/21/20 Patient's doing well Sitting in a wheelchair Participating in therapy Family visiting at the bedside 05/22/20 Patient participating in therapy daily Reportedly patient is depressed He answered all my questions but seems to be sad May 23, 2020 No leukocytosis, anemia Continue to monitor renal function CT of the right femur without contrast: [id number] amputation changes with complex soft tissue fluid collection at the stump site. There is loss of fatty medullary density at the stump site. Osteomyelit is is not excluded. Correlate with MRI. Continue wound care May 24, 2020 The patient underwent ultrasound-guided aspirati on of superficial fluid collection May 25, 2020 Patient was started on Zoloft and venlafaxine Continue psychiatric medications Supportive psychotherapy for anxiety and depress ion Status post US guided aspiration of right AKA st ump yesterday. Continue hemodialysis and wound care Monitor H H Continue working with rehab May 26, 2020 Complaining of right stump pain, neuropathy and phantom limb pain as per pain management Working with rehab, better mood Hemodialysis yesterday Plan of care: -Continue with comprehensive inpatient rehabilit [facility] rehab team -Pain control -Fall precaution -DVT prophylaxis subcu heparin -GI prophylaxis patient currently on Protonix -Pain control as pain management -Seizure precaution patient on Keppra -Continues present medications -Monitor labs -Plan of care discussed with the patient, galina marcano nurse, and Dr. Cavazos. Danny Cavazos 05/28/202107: Attestations Physician Attestation Agree w/findings plan: Patient seen and examined on 05/26/2020. I agree with the findings and plan as documented by JOSE Meek. Plan of care coordinat ed with JOSE Meek. Pertinent labs, Imaging, and store sales consultant evaluations review ed. 74-year-old male was admitted to inpatient rehab for comprehensive rehabilitation. He is complaining of right stump pain, neuropathy and phantom limb pain as per pain management. He is working with rehab and his mood is better today. He underwent hemodialysis yesterda y. We will continue with hemodialysis and wound care, comprehensive inpat ient rehabilitation was per rehab team, pain control, fa ll precautions, DVT prophylaxis with subcu heparin, GI prophylaxis with Protonix, pain control as pa in management, seizure precautions with Keppra, and present medications . We will continue to monitor his labs. Electronically Signed by Javier Meek NP on 0 05/28/20 at 1154 Electronically Signed by Danny Keith MD o n 05/28/20 at 2335 RPT #:[id number] END OF REPORT 2020-05-26 14:38:00-00:00 [facility] Nephrology Progress Note REPORT#:[id number] REPORT STATUS: Signed DATE:05/26/20 TIME: 1438 PATIENT: DARIEN GROSSMAN UNIT #: [id number] [place] [facility] [place] [place] AGE: 74 SEX: M ATTEND: Rosa Curtis MD ADM AUTHOR: Merissa Dillon MD * ALL edits or amendments must be made on the C-Note/computer document * Subjective Chief Complaint: Patient seen and examined. No new complaints. Objective General VS/I O: Vital Signs: Date Time Temp Pulse Resp B/P B/P Pulse O2 O2 F low FiO2 Mean Ox Delivery Rate 05/26 2040 98.4 76 16 111/66 81.3 97 05/26 1526 99.1 66 18 139/66 90.4 96 05/26 0748 99.3 58 16 130/66 87.3 98 24 hour I O ending at 0700: 05/26 0700 05/25 1900 Intake Total 240 940 Output Total 2234 Balance -1993 940 Intake, Oral 240 940 Number 1 Bowel Movements Number Voids 1 Output, 2234 Hemodialysis PATIENT WEIGHT: Weight (lb): 171 Weight (oz): 12.16 Weight (kg): 77.909 Medications Active Meds + DC'd Last 24 Hrs Hydrocodone Bitart/Acetaminophen 1 TAB Q4H PRN P RN PO Sertraline HCl 25 MG BEDTIME PO Albumin Human 12.5 GM ASDIR PRN IV Lidocaine HCl 0.5 ML ASDIR PRN I-DERMAL (CKD) Mannitol 12.5 GM ASDIR PRN IV Sodium Chloride 2,000 ML ASDIR PRN IV Sodium Chloride 10 ML ASDIR PRN IV Sodium Chloride 250 ML ASDIR PRN IV Piperacillin Sod/Tazobactam Sod 3.375 GM Q12H IV Sodium Chloride 100 ML Collagenase 1 APPLIC DAILY TOPICAL Lidocaine 1 PATCH DAILY TOPICAL Amitriptyline HCl 10 MG BEDTIME PO Triamcinolone Acetonide 40 MG PROCEDURE IM (CKD) Aspirin 81 MG DAILY PO Clopidogrel Bisulfate 75 MG DAILY PO Furosemide 40 MG DAILY PO Polyethylene Glycol 17 GM DAILY PO Senna 1 TAB DAILY PO (CKD) Venlafaxine HCl 75 MG DAILY PO Acetaminophen 650 MG Q6H PRN PRN PO Hydralazine HCl 10 MG Q6H PRN PRN PO Ondansetron HCl 4 MG TID PRN PRN SL Heparin Sodium 5,000 UNIT Q8H SUBQ Epoetin Donny-epbx 4,000 UNIT TuThSa@2100 SUBQ Gabapentin 300 MG BEDTIME PO Metoprolol Tartrate 25 MG BID PO Trazodone HCl 150 MG BEDTIME PO Zolpidem Tartrate 5 MG BEDTIME PRN PRN PO Physical Exam General appearance: alert, awake Head/eyes: atraumatic, normocephalic Cardiovascular: regular rate and rhythm, pedal p ulses present Respiratory: clear to auscultation, normal breat h sounds Abdomen: normal bowel sounds, soft Extremities: no edema, Rt AKA Diagnosis, Assessment Plan Hospital course to date: 1. ESRD 2. RT AKA stump infection 3. Hypertension 4. Status post fall and acute SDH 5. Anemia of chronic kidney disease 6. Coronary artery disease Plan -HD MWF. HD in am -Blood pressure currently stable -Renal diet -Hemoglobin better. On Epogen 3 times weekly -Phos has been stable. -Rehab f/u. Free Text A P: 1. ESRD 2. AVF infiltration 3. Hypertension 4. Status post fall and acute SDH 5. Anemia of chronic kidney disease 6. Coronary artery disease Plan -HD MWF. HD in am -Blood pressure currently stable -Renal diet -Hemoglobin better. On Epogen 3 times weekly -Phos has been stable. -Psych f/u. at 2347 RPT #:[id number] END OF REPORT 2020-05-26 12:50:00-00:00 [facility] ([facility]) Pain Management Progress Note REPORT#:[id number] REPORT STATUS: Signed DATE:05/26/20 TIME: 1250 PATIENT: DARIEN GROSSMAN UNIT #: [id number] ROOM/BED: [place] [address] : 45 AGE: 74 SEX: M ATTEND: Rosa Curtis MD ADM AUTHOR: Sohail Wells * ALL edits or amendments must be made on the C-Note/computer document * Subjective Chief complaint: Patient seen and examined. Chart and VIJAYA reyes Patient reports feeling a li ttle better today, neuropathy and phantom limb pain seem to be better. Patient being seen for Left thigh pain, lateral femoral cutaneous neuralgia, Right AKA pain, Peripheral n europathy, phantom limb pain right lower extremity, Patient states symptoms are manageable with use of current medications. No fever/chills, chest pain, dyspnea, no emesis, pruritus, or hallucinations. 14-point ROS undertaken unremarkable except as n oted. Objective General VS/I O: Vital Signs Date Temp Pulse Resp B/P B/P Mean Pulse Ox FiO2 05/25-05/26 36.4-37.4 58-71 15-18 121-139/66-71 85.8-91.5 96-98 Last Documented: Result Date Time Pulse Ox 96 05/26 1526 B/P 139/66 05/26 1526 B/P Mean 90.4 05/26 1526 Temp 37.3 05/26 1526 Pulse 66 05/26 1526 Resp 18 05/26 1526 O2 Delivery Room air 05/24 193 24 hour I O ending at 0700: 05/26 0700 05/25 1900 Intake Total 240 940 Output Total 2234 -1993 940 Intake, Oral 240 940 Number 1 Bowel Movements Number Voids 1 Output, 2234 Hemodialysis PATIENT WEIGHT: Weight (lb): 171 Weight (oz): 12.16 Weight (kg): 77.909 Medications: Active Meds + DC'd Last 24 Hrs Hydrocodone Bitart/Acetaminophen 1 TAB Q4H PRN P RN PO Sertraline HCl 25 MG BEDTIME PO Albumin Human 12.5 GM ASDIR PRN IV Lidocaine HCl 0.5 ML ASDIR PRN I-DERMAL (CKD) Mannitol 12.5 GM ASDIR PRN IV Sodium Chloride 2,000 ML ASDIR PRN IV Sodium Chloride 10 ML ASDIR PRN IV Sodium Chloride 250 ML ASDIR PRN IV Piperacillin Sod/Tazobactam Sod 3.375 GM Q12H IV Sodium Chloride 100 ML Collagenase 1 APPLIC DAILY TOPICAL Lidocaine 1 PATCH DAILY TOPICAL Amitriptyline HCl 10 MG BEDTIME PO Triamcinolone Acetonide 40 MG PROCEDURE IM (CKD) Aspirin 81 MG DAILY PO Clopidogrel Bisulfate 75 MG DAILY PO Furosemide 40 MG DAILY PO Polyethylene Glycol 17 GM DAILY PO Senna 1 TAB DAILY PO (CKD) Venlafaxine HCl 75 MG DAILY PO Acetaminophen 650 MG Q6H PRN PRN PO Hydralazine HCl 10 MG Q6H PRN PRN PO Ondansetron HCl 4 MG TID PRN PRN SL Heparin Sodium 5,000 UNIT Q8H SUBQ Epoetin Donny-epbx 4,000 UNIT TuThSa@2100 SUBQ Gabapentin 300 MG BEDTIME PO Metoprolol Tartrate 25 MG BID PO Trazodone HCl 150 MG BEDTIME PO Zolpidem Tartrate 5 MG BEDTIME PRN PRN PO Physical Exam General appearance: alert, awake, oriented, no a cute distress, conversational Head/eyes: atraumatic, normocephalic, normal con junctiva/sclera ENT: normal pharynx, moist mucosal membranes Neck: full range of motion, non-tender, supple/n o meningismus Cardiovascular: regular rate rhythm Respiratory: clear to auscultation, no distress, aerating well Abdomen quadrants LLQ normal bowel sounds, LUQ normal roberto l sounds, RLQ normal bowel sounds, RUQ normal bowel sounds Extremities: moves all, no edema, pedal pulses, right AKA Neuro/CUSTODIAN MANAGER: no motor deficits, no sensory deficit s, CNII-XII grossly intact Skin: dry, intact, no rash Lymphatics: no lymphadenopathy Psychiatry: normal affect, normal mood Results Findings/data: NO new labs or radiology. Diagnosis, Assessment Plan Free text A P: A/P: Patient is a 74 year old male presenting with: Past medical history: Subdural hematoma, CAD, en d-stage renal disease on HD, hypertension, hyperlipidemia, septic art hritis of prosthesis of previous right TKA, depression Past surgical history: Right TKR, right AKA, cor onary stents Social history: Negative for alcohol, tobacco, i llicit drug use Family history: Not relevant Allergies: Penicillin, iodine Left thigh pain, lateral femoral cutaneous neura lgia -We offered to perform a left lateral femoral cu taneous nerve block to see if this helps with the pain. Patient declined -05/24-decrease Otis 10/325 to Otis 7.5/325 james ry 4 as needed -Lidoderm patch to left thigh daily -Otis 7.5/325 mg oral every 4 hours as needed f or pain -manageable Right AKA discomfort -05/23/2020-CT lower extremity - Above th e knee amputation changes with complex soft tissue fluid collection at the stum p site. There is loss of fatty medullary density at the stump site. Osteomyelitis is not excluded. C orrelate with MRI as clinically indicated. -IV antibiotics , appreciate infectious disease input -Pain medications as outlined above Peripheral neuropathy, phantom limb pain right l ower extremity -Gabapentin 300 mg oral at bedtime -amitriptyline 10 mg oral at bedtime -stable Antalgic/impaired gait -PT/OT -Gait training, improve endurance and strength -Transfer training -PMR following Falls -Fall precautions End-stage renal disease on hemodialysis -Nephrology following Subdural hematoma -Monitor mental status with opioids and other se dative medications Depression -monitoring Constipation -Monitor closely while patient is using opioid n arcotics -MiraLAX 17 g p.o. daily -Senna 1 tab p.o. daily All pertinent diagnostics/labs from the last 24 hours and during the course of the admission were reviewed. Plan discussed with the patient and the nurse. A ll questions were answered. Patient will be monitored for deleteriou s side effects associated with opioids and sedative medications. Me dications will be adjusted further clinical course. Risks versus benefits of opioid medications were reviewed to include, but not limited to respiratory depression, accid ental overdose, altered mental status, sudden , constipation which could result in bowel obstruction, seizures, withdrawal, dependency/addiction, risk for falls . Goals: Daily pain control. Case discussed with Dr Lofton whom agrees. 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: Total Prescriptions 28 Total Private Pay 0 Total Prescribers 4 Total Pharmacies 1 05/06/2020 1 05/06/2020 HYDROCODONE-ACETAMIN 10- 325 MG 30.0 7 [facility] SPA [id number] [facility] ([id number]) 0 42.86 MME Comm Ins [place] 04/20/2020 1 12/24/2019 ZOLPIDEM TARTRATE 10 MG TABLET 30.0 30 PE LAT [id number] [facility] ([id number]) 4 Comm Ins [place] 03/21/2020 1 12/24/2019 ZOLPIDEM TARTRATE 10 MG TABLET 30.0 30 PE LAT [id number] [facility] (1602) 3 Comm Ins [place] 02/20/2020 1 12/24/2019 ZOLPIDEM TARTRATE 10 MG TABLET 30.0 30 PE LAT [id number] [facility] (1602) 2 Comm Ins [place] 01/21/2020 1 12/24/2019 ZOLPIDEM TARTRATE 10 MG TABLET 30.0 30 PE LAT [id number] [facility] (1602) 1 Comm Ins [place] 12/24/2019 1 12/24/2019 ZOLPIDEM TARTRATE 10 MG TABLET 30.0 30 PE LAT [id number] [facility] ([id number]) 0 Comm Ins [place] 11/25/2019 1 07/07/2019 ZOLPIDEM TARTRATE 10 MG TABLET 30.0 30 PE LAT [id number] [facility] ([id number]) 5 Comm Ins [place] [id number] ([id number]) [address] [place] [address] at 1635 RPT #:[id number] END OF REPORT 2020-05-26 12:50:00-00:00 [facility] ([facility]) Pain Management Progress Note REPORT#:[id number] REPORT STATUS: Signed DATE:05/26/20 TIME: 1250 PATIENT: DARIEN GROSSMAN UNIT #: [id number] ROOM/BED: [place] [address] : 45 AGE: 74 SEX: M ATTEND: Rosa Curtis MD ADM AUTHOR: Sohail Wells * ALL edits or amendments must be made on the C-Note/computer document * Subjective Chief complaint: Patient seen and examined. Chart and VIJAYA garza d. Patient reports feeling a li ttle better today, neuropathy and phantom limb pain seem to be better. Patient being seen for Left thigh pain, lateral femoral cutaneous neuralgia, Right AKA pain, Peripheral n europathy, phantom limb pain right lower extremity, Patient states symptoms are manageable with use of current medications. No fever/chills, chest pain, dyspnea, no emesis, pruritus, or hallucinations. 14-point ROS undertaken unremarkable except as n oted. Objective General VS/I O: Vital Signs Date Temp Pulse Resp B/P B/P Mean Pulse Ox FiO 2 05/25-05/26 36.4-37.4 58-71 15-18 121-139/66-71 85.8-91.5 96-98 Last Documented: Result Date Time Pulse Ox 96 05/26 1526 B/P 139/66 05/26 1526 B/P Mean 90.4 05/26 1526 Temp 37.3 05/26 1526 Pulse 66 05/26 1526 Resp 18 05/26 1526 O2 Delivery Room air 05/24 1937 24 hour I O ending at 0700: 05/26 0700 05/25 1900 Intake Total 240 940 Output Total 2234 940 Intake, Oral 240 940 Number 1 Bowel Movements Number Voids 1 Output, 2234 Hemodialysis PATIENT WEIGHT: Weight (lb): 171 Weight (oz): 12.16 Weight (kg): 77.909 Medications: Active Meds + DC'd Last 24 Hrs Hydrocodone Bitart/Acetaminophen 1 TAB Q4H PRN P RN PO Sertraline HCl 25 MG BEDTIME PO Albumin Human 12.5 GM ASDIR PRN IV Lidocaine HCl 0.5 ML ASDIR PRN I-DERMAL (CKD) Mannitol 12.5 GM ASDIR PRN IV Sodium Chloride 2,000 ML ASDIR PRN IV Sodium Chloride 10 ML ASDIR PRN IV Sodium Chloride 250 ML ASDIR PRN IV Piperacillin Sod/Tazobactam Sod 3.375 GM Q12H IV Sodium Chloride 100 ML Collagenase 1 APPLIC DAILY TOPICAL Lidocaine 1 PATCH DAILY TOPICAL Amitriptyline HCl 10 MG BEDTIME PO Triamcinolone Acetonide 40 MG PROCEDURE IM (CKD) Aspirin 81 MG DAILY PO Clopidogrel Bisulfate 75 MG DAILY PO Furosemide 40 MG DAILY PO Polyethylene Glycol 17 GM DAILY PO Senna 1 TAB DAILY PO (CKD) Venlafaxine HCl 75 MG DAILY PO Acetaminophen 650 MG Q6H PRN PRN PO Hydralazine HCl 10 MG Q6H PRN PRN PO Ondansetron HCl 4 MG TID PRN PRN SL Heparin Sodium 5,000 UNIT Q8H SUBQ Epoetin Donny-epbx 4,000 UNIT TuThSa@2100 SUBQ Gabapentin 300 MG BEDTIME PO Metoprolol Tartrate 25 MG BID PO Trazodone HCl 150 MG BEDTIME PO Zolpidem Tartrate 5 MG BEDTIME PRN PRN PO Physical Exam General appearance: alert, awake, oriented, no a cute distress, conversational Head/eyes: atraumatic, normocephalic, normal con junctiva/sclera ENT: normal pharynx, moist mucosal membranes Neck: full range of motion, non-tender, supple/n o meningismus Cardiovascular: regular rate rhythm Respiratory: clear to auscultation, no distress, aerating well Abdomen quadrants LLQ normal bowel sounds, LUQ normal roberto l sounds, RLQ normal bowel sounds, RUQ normal bowel sounds Extremities: moves all, no edema, pedal pulses, right AKA Neuro/CUSTODIAN MANAGER: no motor deficits, no sensory deficit s, CNII-XII grossly intact Skin: dry, intact, no rash Lymphatics: no lymphadenopathy Psychiatry: normal affect, normal mood Results Findings/data: NO new labs or radiology. Diagnosis, Assessment Plan Free text A P: A/P: Patient is a 74 year old male presenting with: Past medical history: Subdural hematoma, CAD, en d-stage renal disease on HD, hypertension, hyperlipidemia, septic art hritis of prosthesis of previous right TKA, depression Past surgical history: Right TKR, right AKA, cor onary stents Social history: Negative for alcohol, tobacco, i llicit drug use Family history: Not relevant Allergies: Penicillin, iodine Left thigh pain, lateral femoral cutaneous neura lgia -We offered to perform a left lateral femoral cu taneous nerve block to see if this helps with the pain. Patient declined -05/24-decrease Otis 10/325 to Otis 7.5/325 james ry 4 as needed -Lidoderm patch to left thigh daily -Otis 7.5/325 mg oral every 4 hours as needed f or pain -manageable Right AKA discomfort -05/23/2020-CT lower extremity - Above th e knee amputation changes with complex soft tissue fluid collection at the stum p site. There is loss of fatty medullary density at the stump site. Osteomyelitis is not excluded. C orrelate with MRI as clinically indicated. -IV antibiotics , appreciate infectious disease input -Pain medications as outlined above Peripheral neuropathy, phantom limb pain right l ower extremity -Gabapentin 300 mg oral at bedtime -amitriptyline 10 mg oral at bedtime -stable Antalgic/impaired gait -PT/OT -Gait training, improve endurance and strength -Transfer training -PMR following Falls -Fall precautions End-stage renal disease on hemodialysis -Nephrology following Subdural hematoma -Monitor mental status with opioids and other se dative medications Depression -monitoring Constipation -Monitor closely while patient is using opioid n arcotics -MiraLAX 17 g p.o. daily -Senna 1 tab p.o. daily All pertinent diagnostics/labs from the last 24 hours and during the course of the admission were reviewed. Plan discussed with the patient and the nurse. A ll questions were answered. Patient will be monitored for deleteriou s side effects associated with opioids and sedative medications. Me dications will be adjusted further clinical course. Risks versus benefits of opioid medications were reviewed to include, but not limited to respiratory depression, accid ental overdose, altered mental status, sudden , constipation which could result in bowel obstruction, seizures, withdrawal, dependency/addiction, risk for falls . Goals: Daily pain control. Case discussed with Dr Lofton whom agrees. 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: Total Prescriptions 28 Total Private Pay 0 Total Prescribers 4 Total Pharmacies 1 05/06/2020 1 05/06/2020 HYDROCODONE-ACETAMIN 10- 325 MG 30.0 7 CH SPA [id number] [facility] (1602) 0 42.86 MME Comm Ins [place] 04/20/2020 1 12/24/2019 ZOLPIDEM TARTRATE 10 MG TABLET 30.0 30 PE LAT [id number] [facility] (1602) 4 Comm Ins [place] 03/21/2020 1 12/24/2019 ZOLPIDEM TARTRATE 10 MG TABLET 30.0 30 PE LAT [id number] [facility] (1602) 3 [place] Ins [place] 02/20/2020 1 12/24/2019 ZOLPIDEM TARTRATE 10 MG TABLET 30.0 30 PE LAT [id number] [facility] (1602) 2 [place] Ins [place] 01/21/2020 1 12/24/2019 ZOLPIDEM TARTRATE 10 MG TABLET 30.0 30 PE LAT [id number] [facility] (1602) 1 [place] 12/24/2019 1 12/24/2019 ZOLPIDEM TARTRATE 10 MG TABLET 30.0 30 PE LAT [id number] [facility] (1602) 0 [place] Ins [place] 11/25/2019 1 07/07/2019 ZOLPIDEM TARTRATE 10 MG TABLET 30.0 30 PE LAT [id number] [facility] (1602) 5 Comm Ins [place] [id number] ([id number]) [address] [place] [address] at 1631 Electronically Signed by Herman Lofton MD on 0 05/26/20 at 8005 RPT #:[id number] END OF REPORT 2020-05-26 09:43:00-00:00 [facility] ([facility]) Clinical Note REPORT#:[id number] REPORT STATUS: Signed DATE:05/26/20 TIME: 942 PATIENT: DARIEN GROSSMAN UNIT #: [id number] ROOM/BED: [place] [address] : 45 AGE: 74 SEX: M ATTEND: Rosa Curtis MD ADM AUTHOR: Jonathan Sheikh NP * ALL edits or amendments must be made on the el ectronic/computer document * Clinical Note Note: pt gone from room cont abx x 1 week total if aspirte cx negative Electronically Signed by Jonathan hSeikh NP on at 1251 RPT #:[id number] END OF REPORT 2020-05-26 09:43:00-00:00 [facility] ([facility]) Clinical Note REPORT#:[id number] REPORT STATUS: Signed DATE:05/26/20 TIME: 942 PATIENT: DARIEN GROSSMAN UNIT #: [id number] ROOM/BED: [place] [address] : 45 AGE: 74 SEX: M ATTEND: Rosa Curtis MD ADM AUTHOR: Jonathan Sheikh NP * ALL edits or amendments must be made on the [employer] ectronic/computer document * Clinical Note Note: pt gone from room cont abx x 1 week total if aspirte cx negative Electronically Signed by Jonathan Sheikh NP on at 1251 at 2154 RPT #:[id number] END OF REPORT 2020-05-26 07:45:00-00:00 [facility] ([facility]) Clinical Note REPORT#:[id number] REPORT STATUS: Signed DATE:05/26/20 TIME: 744 PATIENT: DARIEN GROSSMAN UNIT #: [id number] ROOM/BED: [place] [address] : 45 AGE: 74 SEX: M ATTEND: Rosa Curtis MD ADM AUTHOR: Danny Keith MD * ALL edits or amendments must be made on the C-Note/Above All Software document * Clinical Note Note: 74-year-old male 1. Fall 2. Subdural hematoma 3. TBI (traumatic brain injury) 4. History of right above knee amputation (Onse t: 04/03/20) 5. ESRD on dialysis 6. History of coronary artery disease 7. History of coronary angioplasty with inserti on of stent 8. HLD (hyperlipidemia) 9. Anemia of chronic disease 10. Frequent falls 11. Hypoalbuminemia 12. Leukocytosis 13. Limb pain 14. Impaired functional mobility, balance, gait , and endurance 05/24: Underwent ultrasound guided aspiration of superficial fluid collection and 15 cc of bloody fluid removed. Continue with pain control and IV antibiotics. Continue with renal diet. Blood pre ssure is stable. 05/25: Underwent US guided aspiration of right AK A stump yesterday. Doing well today. Nephrology evaluation noted and continue with hemodialysis. Continue with rehab care. Wound care evaluation noted and continue with wound care. 05/26: Right stump pain and phantom pain. Partici fay in rehab. Plan We will continue with telemetry, BP control, gly cemic control, pain control, electrolyte control, DVT/GI prophylaxis, repeat labs. PT/OT/ST. Wound care. Electronically Signed by Danny Keith MD n 06/01/20 at 1321 RPT #:[id number] END OF REPORT 2020-05-26 04:28:00-00:00 [facility] Progress Note REPORT#:[id number] REPORT STATUS: Signed DATE:05/26/20 TIME: 427 PATIENT: DARIEN GROSSMAN UNIT #: [id number] ROOM/BED: [place] [address] : 45 AGE: 74 SEX: M ATTEND: Rosa Curtis MD ADM AUTHOR: Sekou Curtis MD * ALL edits or amendments must be made on the C-Note/Above All Software document * Subjective Chief complaint: Rehab follow-up Generalized weakness Patient doing better today Affect is improved Slept well BM+ Denies PATEL/N/V/D 14 systems reviewed and neg. except that above. Patient reports: No: shortness of breath, vomiting, constipation. Nursing reports: No: new events overnight. Objective General VS: Vital Signs: Date Time Temp Pulse Resp B/P B/P Pulse O2 O2 F low FiO2 Mean Ox Delivery Rate 05/25 2324 97.7 59 18 132/71 91.5 97 05/26 2007 97.5 71 15 121/68 85.8 96 PATIENT WEIGHT: Weight (lb): 171 Weight (oz): 12.16 Weight (kg): 77.909 Medications: Active Meds + DC'd Last 24 Hrs Hydrocodone Bitart/Acetaminophen 1 TAB Q4H PRN P RN PO Sertraline HCl 25 MG BEDTIME PO Albumin Human 12.5 GM ASDIR PRN IV Lidocaine HCl 0.5 ML ASDIR PRN I-DERMAL (CKD) Mannitol 12.5 GM ASDIR PRN IV Sodium Chloride 2,000 ML ASDIR PRN IV Sodium Chloride 10 ML ASDIR PRN IV Sodium Chloride 250 ML ASDIR PRN IV Piperacillin Sod/Tazobactam Sod 3.375 GM Q12H IV Sodium Chloride 100 ML Collagenase 1 APPLIC DAILY TOPICAL Lidocaine 1 PATCH DAILY TOPICAL Amitriptyline HCl 10 MG BEDTIME PO Triamcinolone Acetonide 40 MG PROCEDURE IM (CKD) Aspirin 81 MG DAILY PO Clopidogrel Bisulfate 75 MG DAILY PO Furosemide 40 MG DAILY PO Polyethylene Glycol 17 GM DAILY PO Senna 1 TAB DAILY PO (CKD) Venlafaxine HCl 75 MG DAILY PO Acetaminophen 650 MG Q6H PRN PRN PO Hydralazine HCl 10 MG Q6H PRN PRN PO Ondansetron HCl 4 MG TID PRN PRN SL Heparin Sodium 5,000 UNIT Q8H SUBQ Epoetin Donny-epbx 4,000 UNIT TuThSa@2100 SUBQ Gabapentin 300 MG BEDTIME PO Metoprolol Tartrate 25 MG BID PO Trazodone HCl 150 MG BEDTIME PO Zolpidem Tartrate 5 MG BEDTIME PRN PRN PO Nutrition assessment: BMI-25.4 Functional Progress Functional progress: - PT DAILY NOTE - - PT daily note comment: S: PATIENT AGREEABLE FOR THERAPY. O: PATIENT PERFORMED ROLLING, SUPINE<>SIT, SIT TO STAND IND, STAND PIVOT TRANSFER W/ IND, AMBULATION W/ RW F OR 10 FT, 50 FT W/ 2 TURNS WITH IND, 150 FT W/ SBA DUE TO FATIGUE, 10 FT UNEVEN SURFACE W/ SBA DUE TO UNSTEADINESS. Pt. INSTRUTED ON 1 STEP WITH RW W/ SBA DUE TO UNSTEADINESS. Pt. PERFORMED WCMOBILITY FOR 50 FT W/ 2 TURNS, 150 FT IND. Pt . INSTRUCTED ON 1 STEP IN BARS FOR A FEW TRIALS TO PROGRESS WITH 1 CURB WITH RW. Pt. INSTRUCTED ON STATIC STANDING IN PARALLEL BARS FOR 15 MINS, ONE HAND HOLDING TO BAR. A: PATIENT PERFORMED TREATMENT WELL. Pt. UNSTEA DY WITH 1 STEP AND AMBULATING ON UNEVEN SURFACE. Pt. FATIGUES WITH LONG DISTANCE GAIT TRAINING. P: CONTINUE PLAN OF CARE. - ST DAILY NOTE - - Cognition: PER MOCA PT PRESENTING WITH MILD COG NITIVE DEFCITIS IN THE AREAS OF ATTENTION, EXPRESSION, MEMORY, THOUGH T ORGANIZATION, AND INSIGHT. - PT AAOX4. - PT GENERALLY WITH GOOD RECALL OF DAILY ONGOIN GS BUT WITH SOME FORGETFULLNESS. FOR EXAMPLE, HE DID NOT RECALL READING HIS HEWSPAPER ARTICLE TO IT COMPLIANCE ANALYST YESTERDAY. PT ALSO REFERENCED THE IT COMPLIANCE ANALYST HAVING HIM COMPLETE WORD PUZZLE, KAI ER IT WAS A DIFFERENT IT COMPLIANCE ANALYST. - INITIATED INFORMAL TASKS TARGETING SAME SKIL LS HE DEMO DIFFICULTIES WITH DURING MOCA ADMINISTRATION. P T DEMO ATTTENTION AND WORKING MEMORY TO RECALL 3-[address] LISTS WITH MENTAL MANIPULATION WITH 100% ACC. PT DEMO MINE YED RECALL OF 4/4 TARGET WORDS AFTER 5 MIN DELAY WITH DISTRACTION WITH 100% ACC. - PT DEMO ALTERNATING ATTENTION AND WORKING ME TAMMY FOR EF TASK OF NAMING FEMALE NAMES FOR EACH LETTER OF THE ALPHABET WITH 96% ACC (ONLY MISSING 1 LETTER OF THE ALPHABET). - PT DEMO GOOD REASONING AND PROBLEM SOLVING FO R HOME BASED PROBLEMS (RETURNING TO WORK, GETTING HOUSEHOLD READY, ETC), HOWEVER IT IS ONLY REPORTED VERBALLY. PT DID REFUSE ORIENTATION AND UNKNOWN IF PT IS DOING FAMILY TRAINING. - ATTEMPTED TO INITIATE EF TASK OF CREATING A SCHEDULE. PT STARTED TO READ PASSAGE WHICH HE WAS TO CREAT SCHEDULE FROM, THEN UPBRUPTLY STOPPED AND REPORTED THIS WAS "UNDER HIM" AND NOT SOMETHING HE WOULD EVER DO. INITTIATE PS F OR PT TO ID ADLS WHICH DO REQUIRE PLANNING AND ORGANIZATION . 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 - PT DEMONSTRATED SOME REDUCED SOCIAL AWARENESS DURING SESSION, IT COMPLIANCE ANALYST WAS ATTEMPTING TO END SESSION PT CONTINUED TO TALK. DID NOT ALERT TO NON-VERBAL CUES ( CLINCIAN PUTTING CHAIR UP, MOVING TOWARD EXIT) AND REQUIRED DIR ECT VERBAL CUING 3X TO END SESSION. ST daily note comment: PLEASANT AND COOPERATIVE FOR THERAPY SESSION HOWEVER REFUSING TO DO CERTAIN TASKS. PT REPORTING THAT HIS MOOD IS IMPROVED SINCE STARTED ON ZOLOFT. AT SESSION C LOSE PT IN WHEELCHAIR WITH ALARM ENGAGED. PLAN: CONTINUE POC. - OT DAILY NOTE - - Range of motion and strength: 4# DOWEL 20X3 SET S 2 PLANES Transfers: SUPV W/ TXFERS Activities of daily living: FULL SHOWER- SET UP /SUPV TOILETING- SBA UBD- INDEPENDENT LBD- SUPV FW- SET UP GROOMING/HYGIENE- INDEPENDENT Cognition: WNL, MINIMAL CUES FOR SAFETY AWARENE SS OT daily note comment: Pt. REPORTED FEELING OK UPON ARRIVAL. Pt. SEEN FOR 90 MIN OF SKILLED OT IN ORDER TO ADDRESS FUNCTIONAL TXFER S, ADL TASKS AND BUE STRENGTH/ENDURANCE. Pt. COMPLETED FULL SHOWER W/ SET UP/SUPV. Pt. IS INDEPENDENT-SUPV W/ ALL OTHER ADLS. Pt. TOLERATED ALL ACTIVITY FAIR W/ REST BREAKS NEEDED. Pt. AGREEABLE TO STAY UP IN W/C POST SESSION. Pt. LEFT W/ NEEDS IN REACH AND CHAIR ALARM ENGAGED. CONTINUE SKILLED OT POC. Physical Exam General appearance: alert, awake, oriented Psych: alert, normal affect, oriented x 3 HEENT: anicteric, mucosal membranes moist, pupil s reactive to light, sclera clear, NC/AT Neck: non-tender, supple, no JVD Cardiovascular: regular rate rhythm, S1/S2, no m urmur Respiratory: aerating well, clear bilaterally, c lear to auscultation Abdomen: bowel sounds presen t, non-distended, soft, non-tender, no mass palpable Skin: dry, normal temperature, L AKA incision w 2 open areas of dehiscence-no drainage, no odor. Musculoskeletal - general: Musculoskeletal - general: normal tone, no swel ling, MMT moves all against gravity. BUE 4/5, SHORT PIECE HANDLER GOOD, RHF 3+/5, LLE 4/5. L calf NT, No cords. TTP L lateral thigh above trochanter bursae. Neuro/CUSTODIAN MANAGER: alert, oriented X 3, CNII-XII intact, normal speech, reflexes equal bilat Results Findings/Data: Laboratory Tests: 05/25 0546 Chemistry Sodium (134 - 147 mEq/L) 136 Potassium (3.4 - 5.0 mEq/L) 3.8 Chloride (100 - 108 mEq/L) 101 Carbon Dioxide (21 - 33 mEq/l) 24 Anion Gap (0 - 20) 15 BUN (7 - 18 mg/dL) 33 H Creatinine (0.6 - 1.3 mg/dL) 4.2 H Glomerular Filtr Rate (70 - 80) 13.9 L Glucose (70 - 110 mg/dL) 79 Calcium (8.0 - 10.5 mg/dL) 8.9 Hematology WBC (4.5 - 11.0 x10 3/uL) 8.4 RBC (4.00 - 5.60 x10 6/uL) 3.22 L Hgb (12.5 - 16.9 g/dL) 9.2 L Hct (37.5 - 50.7 %) 31.3 L MCV (81.0 - 99.0 fL) 97.2 MCH (27.0 - 33.0 pg) 28.6 MCHC (33.0 - 37.0 g/dL) 29.4 L RDW (11.5 - 14.5 %) 14.5 Plt Count (150 - 400 x10 3/uL) 356 MPV (7.0 - 9.0 fL) 8.6 Neut % (Auto) (56.0 - 77.0 %) 61.1 Lymph % (Auto) (14.0 - 32.0 %) 18.0 Dolores % (Auto) (4.8 - 9.0 %) 10.5 H Eos % (Auto) (0.3 - 3.7 %) 8.8 H Baso % (Auto) (0.0 - 2.0 %) 0.8 Neut # (Auto) (2.0 - 7.6 x10 3/uL) 5.13 Lymph # (Auto) (1.0 - 3.8 x10 3/uL) 1.51 Dolores # (Auto) (0.1 - 0.8 x10 3/uL) 0.88 H Eos # (Auto) (0.0 - 0.2 x10 3/uL) 0.74 H Baso # (Auto) (0.0 - 0.2 x10 3/uL) 0.07 Abs Immat Gran (auto) (0.00 - 0.03 x10 3/uL) 0. 07 H Add Manual Diff NO Immature Gran % (0.0 - 2.0 %) 0.8 Nucleated RBC % (0 - 0 %) 0.0 Nucleated RBCs # (Man) (0.0 - 0.1 x10 3/uL) 0.0 0 Radiology data: Recent Impressions: RADIOLOGY - XR HIP W/PEL UNI 2+V LT 05/21 1735 Report Impression - Status: SIGNED Entered: 05/21/2020 1838 IMPRESSION: 1. There is no acute osseous fracture or disloca tion. The hip joint spaces are preserved. Impression By: [email or web address] - James Kitchen D.O. CAT SCAN - CT LOWER EXTRM W/O C RT 05/23 1728 Report Impression - Status: SIGNED Entered: 05/23/2020 1806 IMPRESSION: Above the knee amputation changes wi th complex soft tissue fluid collection at the stump site. There is los s of fatty medullary density at the stump site. Osteomyelitis is not excluded. Correlate with MRI as clinically indicated. SL: SG-H Impression By: [email or web address] - Dominic Mena M.D. ULTRASOUND - USG NDL PLACEMENT (Bxg/Asp) 05/24 1 434 Report Impression - Status: SIGNED Entered: 05/24/2020 1515 IMPRESSION: 1. Technically successful ultrasound-guided aspi ration of a right knee stump collection. Impression By: [email or web address] - Paloma Arvizu D.O. Objective Comments Objective comments: Microbiology: 05/24 152 ASPIRATE: Body Fluid Culture - ORD 05/24 1522 ASPIRATE: Anaerobic Culture - ORD 05/24 1522 ASPIRATE: Gram Stain - ORD 05/24 1146 ASPIRATE: Body Fluid Culture - RES 05/24 1146 ASPIRATE: Anaerobic Culture - RES 05/24 1146 ASPIRATE: Gram Stain - RES Hematology: 05/25 05/23 0546 1300 Hematology WBC (4.5 - 11.0 x10 3/uL) 8.4 9.7 Chemistry: 05/25 05/23 0546 1300 Chemistry Creatinine (0.6 - 1.3 mg/dL) 4.2 H 4.5 H Recent Impressions: ULTRASOUND - USG NDL PLACEMENT (Bxg/Asp) 05/24 1 434 Report Impression - Status: SIGNED Entered: 05/24/2020 1515 IMPRESSION: 1. Technically successful ultrasound-guided aspi ration of a right knee stump collection. Impression By: [email or web address] - Paloma Arvizu D.O. 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 15 mL of blood-tinged fluid. 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 Unspecified anxiety disorder. Plan: -Comprehensive inpatient rehabilitation with physical, occupational and speech therapy 3 hours a day for 5 to 6 days per week-2 05/18 rehabilitation physician supervision-03/09 rehabilitat ion nursing care-Case management for safe discharge planning-Rehab MD to monitor comorbidities and f unctional progress. -Decubitus prevention-protective hydrating lotio n-turn every 2 hours-offload -Right AKA wound dehiscence- wound care consulted-Dr. Gilbert-for now Xeroform and Mepilex -Consult new life brace management/prosthetics -Strict fall and safety precaution -DVT prophylaxis-SCDs and subcutaneous heparin -GI prophylaxis-Protonix -Early mobilization-OOB to chair -Work on bed mobility, transfer training , ADLs, pre-gait and gait exercises as tolerable. 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 intake, check albumin 3.2 and prealbumin 13.1, 14.3, dietary consult, protein supplements . -Await consultants input, internal medicine, nep hrology, pain management, ID, wound care -Domenica for a total of 7 days-to be completed to zuniga 05/21-completed -Continue right AKA incisional dressing care-wou nds looking better -Prosthetic company consulted for evaluation -Continue aspirin and Plavix-Lasix -History of depression/anxie ty continue BuSVinod armendarizyrcherelle, Effexor-office asst bring in patient's home Pristiq -Monitor hemoglobin on Epogen -Hemodialysis as per nephrology-Saturday -Blood pressure currently stable on current medi cation -Renal diet -Left hip pain-x-ray of the left hip and pelvis showed no acute osseous fracture. The hip joint spaces are preserved-sat itor -Elevated WBC-possible infec amado right NASEEM-culture wound pending-no fever-repeat CBC 05/21-given patient's history of staph infect ion prior will consult ID. Patient seen by ID-patient placed on vancomycin now discontinued -Right AKA wound dehiscence- Culture done-rare gram-negative bacilli-Santyl with xeroform to dehisced sites cover with foam dress ing daily-As per wound care -Right AKA stump cellulitis-R/O fluid collection , check CT extremity without contrast-Superficial cx: Pseudomonas (R-Merrem), and CoNS-ESR 114/CRP 192 significant elevated-On Cefepime, change to Zosy n as per ID -05/23-CT of RLE-CT(+) 6/6/4cm loculated fluid co llection Infectious disease believes this is more of a seroma. I discussed w ith ID Dr. Sierra and he agrees with vascular surgery consul tatchapis. I would like to treat this conservatively as possible since patient on rehab. Continue Zosyn as per ID-HAS MIDLINE -05/24 ID ordered special procedures IR aspiratio n of fluid -Depression worse-patient's office manag er to bring in patient's home Prestiq- psychiatry consult-started o n Zoloft-monitor closely-patient upset and depressed and became more depressed after he learned about the results of the CT. -Depression improved-patient being treated for m ajor depression recurrent and started on Zoloft-wean venlafaxine over time. Di scontinue buspirone. Continue trazodone and Ambien for insomnia-as per psychia try 05/24-Technically successful ultrasound-g uided aspiration of a right knee stump collection. 15 mL of blood-tinged fluid. Culture s pending-cont abx x 1 week total if aspirte cx negative as per ID -Patient seen by vascular surgery Dr. Bowling-no s urgical intervention at this time wait for cultures and continue antibiotics. -Labs reviewed-WBC down to 9.7>8.4-hemoglobin st able 9.5>9.2, sodium 133>136, creatinine 4.5>4.2 -Hemoglobin better. On Epogen 3 times weekly -Labs as per renal -Continue current medication -Continue brain injury and amputation IRF Patient Progress-AMBULATION W/ RW FOR 10 FT, 50 FT W/ 2 TURNS WITH IND, 150 FT W / SBA DUE TO FATIGUE, 10 FT UNEVEN SURFACE W/ SB A DUE TO UNSTEADINESS. PM R Please see team note. Plan and goals discussed with the patient. I agree with the teams finding ELOS- [05/31] DC-Home with family-HH DME-HAS WC, TT 35 min>50% with discussing with patie nt about vascular surgery consultation recommendation, depression, psych input, progress, open wounds to right AKA, ID consult, continue IV antibio tic, rehab plan of care, goals, expectations, needs, and medical issues, examination. MAR and EMR reviewed. All Questions answered. Orders: Procedure Date/time Status Nutritional Supplements 05/[address] SPEECH/LANG/VOICE TX 05/26 UNK Complete PT WHEELCHAIR TRAINING 05/26 UNK Complete PT GAIT TRNG 05/26 UNK Complete PT FUNCTIONAL TRN 15 MIN 05/26 UNK Complete OT FUNCTIONAL TRN 15 MIN 05/26 UNK Complete OT EXERCISE 15MIN 05/26 UNK Complete OT ADL 05/26 UNK Complete Plan discussed with: patient, nurse, interdisc c are team Rehab attestation: Face to face exam completed. Treatment plan disc ussed with patient. Meets continued stay criteria. Agree with interdiscipl inary treatment plan. Patient seen and examined by me personally. at 1625 RPT #:[id number] END OF REPORT 2020-05-25 23:36:00-00:00 [facility] REPORT#:[id number] REPORT STATUS: Signed DATE:05/25/20 TIME: 2336 PATIENT: DARIEN GROSSMAN UNIT #: [id number] ROOM/BED: [place] [address] : 45 AGE: 74 SEX: M ATTEND: Rosa Curtis MD ADM AUTHOR: Javier Meek MONOGRAM MAKER * ALL edits or amendments must be made on the C-Note/computer document * Subjective Chief Complaint: Right AKA Possible depression Review of Systems Constitutional: Denies: chills, fever. ENT: Denies: earache, nasal congestion, sore throat. Respiratory: Denies: hemoptysis, parox no cturnal dyspnea, pleurisy, pleuritic pain, pneumonia , SOB, wheezing. Cardiovascular: Denies: chest pain, palpitations. GI: Denies: abdominal pain, nausea, vomiting. : Denies: flank pain, frequency, hematuria. Musculoskeletal: Denies: extremity pain, extr emity swelling, joint pain, lumbar pain, neck pain. Neuro: Denies: change in LOC, confusion, dizziness, foc al weakness, gait problem, headache, lightheaded, numbness, seizure, slurre d speech, spinning sensation, syncope, unable to speak, vision change. Psych: Denies: agitation, anxiety, auditory hallucinati on, change in mental status, confusion, delusional, depre ssion, homicidal ideation, hostile, insomnia, stress , suicidal ideation, visual hallucination. All systems rev neg: except as marked Objective General VS/I O: Laboratory Tests 05/25 05/23 05/23 0546 1300 1300 Chemistry Sodium (134 - 147 mEq/L) 136 133 L Potassium (3.4 - 5.0 mEq/L) 3.8 4.1 Chloride (100 - 108 mEq/L) 101 97 L Carbon Dioxide (21 - 33 mEq/l) 24 27 Anion Gap (0 - 20) 15 13 BUN (7 - 18 mg/dL) 33 H 54 H Creatinine (0.6 - 1.3 mg/dL) 4.2 H 4.5 H Glomerular Filtr Rate (70 - 80) 13.9 L 12.9 L Glucose (70 - 110 mg/dL) 79 200 H Calcium (8.0 - 10.5 mg/dL) 8.9 9.6 Phosphorus (2.5 - 4.9 MG/DL) 3.9 Albumin (3.4 - 5.0 g/dL) 3.20 L Prealbumin (16.0 - 40.0 mg/dL) 14.3 L Laboratory Tests 05/25 05/23 0546 1300 Hematology WBC (4.5 - 11.0 x10 3/uL) 8.4 9.7 RBC (4.00 - 5.60 x10 6/uL) 3.22 L 3.31 L Hgb (12.5 - 16.9 g/dL) 9.2 L 9.5 L Hct (37.5 - 50.7 %) 31.3 L 29.6 L MCV (81.0 - 99.0 fL) 97.2 89.4 MCH (27.0 - 33.0 pg) 28.6 28.7 MCHC (33.0 - 37.0 g/dL) 29.4 L 32.1 L RDW (11.5 - 14.5 %) 14.5 14.4 Plt Count (150 - 400 x10 3/uL) 356 395 MPV (7.0 - 9.0 fL) 8.6 8.3 Neut % (Auto) (56.0 - 77.0 %) 61.1 78.9 H Lymph % (Auto) (14.0 - 32.0 %) 18.0 7.0 L Dolores % (Auto) (4.8 - 9.0 %) 10.5 H 7.2 Eos % (Auto) (0.3 - 3.7 %) 8.8 H 5.9 H Baso % (Auto) (0.0 - 2.0 %) 0.8 0.4 Neut # (Auto) (2.0 - 7.6 x10 3/uL) 5.13 7.67 H Lymph # (Auto) (1.0 - 3.8 x10 3/uL) 1.51 0.68 L Dolores # (Auto) (0.1 - 0.8 x10 3/uL) 0.88 H 0.70 Eos # (Auto) (0.0 - 0.2 x10 3/uL) 0.74 H 0.57 H Baso # (Auto) (0.0 - 0.2 x10 3/uL) 0.07 0.04 Abs Immat Gran (auto) (0.00 - 0.03 x10 3/uL) 0. 07 H 0.06 H Add Manual Diff NO NO Immature Gran % (0.0 - 2.0 %) 0.8 0.6 Nucleated RBC % (0 - 0 %) 0.0 0.0 Nucleated RBCs # (Man) (0.0 - 0.1 x10 3/uL) 0.0 0 0.00 Chemistry: 05/25 0546 Chemistry Sodium (134 - 147 mEq/L) 136 Potassium (3.4 - 5.0 mEq/L) 3.8 Chloride (100 - 108 mEq/L) 101 Carbon Dioxide (21 - 33 mEq/l) 24 BUN (7 - 18 mg/dL) 33 H Creatinine (0.6 - 1.3 mg/dL) 4.2 H Glucose (70 - 110 mg/dL) 79 Calcium (8.0 - 10.5 mg/dL) 8.9 Home Medications: Medication Dose/Rte/Freq Days Qty Entered Last Max Daily Dose Reviewed busPIRone (BUSPAR) 10 MG PO BEDTIME 05/13/20 Strength: 10 MG TAB 1443 2255 HYDROcodone/APAP 1 TAB PO 05/13/20 05/19/20 (NORCO 10/325) Q6H PRN PRN PAIN 1443 2255 Strength: 10 MG-325 MG TAB ZOLPIDEM (AMBIEN) 10 MG PO 05/13/20 05/19/20 Strength: 10 MG TAB BEDTIME PRN 1444 2255 INSOMNIA GABAPENTIN (NEURONTIN) 300 MG PO BEDTIME 05/19/20 Strength: 300 MG CAP 1445 2255 DESVENLAFAXINE ER 25 MG PO DAILY 05/13/2010/01 (PRISTIQ) 1446 2255 Strength: 50 MG TAB.SR.24H traZODone (DESYREL) 150 MG PO BEDTIME 05/13/20 05/19/20 Strength: 150 MG TAB 1446 2255 FUROSEMIDE (LASIX) 40 MG PO DAILY 05/13/2010/01 Strength: 40 MG TAB 1447 2255 METOPROLOL TARTRATE 25 MG PO BID 05/13/2005/19 (LOPRESSOR) 1448 2255 Strength: 25 MG TAB levETIRAcetam (KEPPRA) 500 MG PO Q12HR 10 05/1405/19/20 Strength: 500 MG TAB 1333 2255 Current Hospital Medications: Anti-Infective Agents Sig/Tatum Start time Last Medication Dose Route Stop Time Status Admin Piperacillin Sod/ 3.375 GM Q12H 05/23 1300 AC 0 05/25 Tazobactam Sod IV 05/30 1259 1806 (ZOSYN 3.375GM) Sodium Chloride 100 ML (SODIUM CHLORIDE 0.9% 100 ML) Blood Derivatives Sig/Tatum Start time Last Medication Dose Route Stop Time Status Admin Albumin Human 12.5 GM ASDIR PRN 05/23 1415 AC (ALBUMINAR-25%) IV 06/23 1413 Blood Formation,Coagulation Sig/Tatum Start time Last Medication Dose Route Stop Time Status Admin Clopidogrel Bisulfate 75 MG DAILY 05/20 0900 AC 05/25 (Plavix) PO 06/19 1300 0828 Heparin Sodium 5,000 UNIT Q8H 05/19 2200 AC (HEPARIN 5000 UNITS/ SUBQ 06/19 1300 2028 ML) Epoetin Donny-epbx 4,000 UNIT TuThSa@2100 05/19 2100 AC 05/24 (RETACRIT) SUBQ 06/19 1300 205 Cardiovascular Drugs Sig/Tatum Start time Last Medication Dose Route Stop Time Status Admin Lidocaine HCl 0.5 ML ASDIR PRN 05/23 141 CKD (LIDOCAINE HCL/PF) I-DERMAL 06/23 141 Hydralazine HCl 10 MG Q6H PRN PRN 05/20 0845 AC (APRESOLINE) PO 06/19 0844 Metoprolol Tartrate 25 MG BID 05/19 2099 AC (LOPRESSOR) PO 06/19 1300 2022 Central Nervous System Agents Sig/Tatum Start time Last Medication Dose Route Stop Time Status Admin Hydrocodone Bitart/ 1 TAB Q4H PRN PRN 05/24 141 5 AC 05/25 Acetaminophen PO 06/10 1200 1823 (NORCO 7.5/325 TABLET) Sertraline HCl 25 MG BEDTIME 05/23 2099 AC 05/12 4 (ZOLOFT) PO 06/22 Amitriptyline HCl 10 MG BEDTIME 05/20 2099 AC 0 05/25 (ELAVIL) PO 06/19 Aspirin 81 MG DAILY 05/20 899 AC 05/25 (ASPIRIN) PO 06/19 1300 0828 Venlafaxine HCl 75 MG DAILY 05/20 899 AC 05/25 (Effexor XR 37.5 mg) PO 06/19 1300 0828 Acetaminophen 650 MG Q6H PRN PRN 05/20 0845 AC (TYLENOL) PO 06/19 0844 Gabapentin 300 MG BEDTIME 05/19 2099 AC 05/25 (NEURONTIN) PO 06/19 1300 2022 Trazodone HCl 150 MG BEDTIME 05/19 2099 AC 05/12 4 (DESYREL) PO 06/19 1300 2021 Zolpidem Tartrate 5 MG BEDTIME PRN PRN 05/19 20 00 AC 05/25 (AMBIEN) PO 06/19 1300 2027 Electrolytic, Caloric, And Nadia Sig/Tatum Start time Last Medication Dose Route Stop Time Status Admin Mannitol 12.5 GM ASDIR PRN 05/23 141 AC (MANNITOL 25% 12.5GM/ IV 06/23 141 50ML) Sodium Chloride 2,000 ML ASDIR PRN 05/23 1415 A C 05/25 (SODIUM CHLORIDE IV 05/13 1413 1423 0.9%) Sodium Chloride 10 ML ASDIR PRN 05/23 1415 AC 0 05/25 (SODIUM CHLORIDE) IV 06/22 1414 1424 Sodium Chloride 250 ML ASDIR PRN 05/23 1415 AC (SODIUM CHLORIDE IV 06/22 1414 0.9%) Furosemide 40 MG DAILY 05/20 899 AC 05/25 (LASIX) PO 06/19 1300 0828 Eye, Ear, Nose And Throat (Een Sig/Tatum Start time Last Medication Dose Route Stop Time Status Admin Triamcinolone 40 MG PROCEDURE 05/20 1944 CKD Acetonide IM 06/20 1943 (KENALOG-40 INJECTION) Gastrointestinal Drugs Sig/Tatum Start time Last Medication Dose Route Stop Time Status Admin Polyethylene Glycol 17 GM DAILY 05/20 899 AC 0 05/21 (MIRALAX) PO 06/19 1300 1016 Senna 1 TAB DAILY 05/20 899 CKD 05/21 (SENOKOT) PO 06/19 1300 1015 Ondansetron HCl 4 MG TID PRN PRN 05/20 0845 AC (ZOFRAN ODT) SL 06/19 0844 Local Anesthetics (Parenteral) Sig/Tatum Start time Last Medication Dose Route Stop Time Status Admin Lidocaine 1 PATCH DAILY 05/21 899 AC 05/25 (LIDODERM) TOPICAL 06/20 0859 0828 Skin And Mucous Membrane Agent Sig/Tatum Start time Last Medication Dose Route Stop Time Status Admin Collagenase 1 APPLIC DAILY 05/22 899 AC 05/25 (SANTYL 2GM TOPICAL) TOPICAL 06/21 0859 0829 Vital Signs: Date Time Temp Pulse Resp B/P B/P Pulse O2 O2 F low FiO2 Mean Ox Delivery Rate 05/25 2324 36.5 59 18 132/71 91.5 97 05/26 2007 36.4 71 15 121/68 85.8 96 05/25 0700 05/24 2300 05/24 1500 Intake Total 600.00 250 940 Output Total 400 Balance 200.00 250 940 Intake, IV 120.00 Intake, Oral 480 250 940 Number 1 Bowel Movements Number Voids 1 Output, Urine 400 Current Medications Sig/Tatum Start time Last Medication Dose Route Stop Time Status Admin Hydrocodone Bitart/ 1 TAB Q4H PRN PRN 05/24 141 5 AC 05/25 Acetaminophen PO 06/10 1200 1823 Sertraline HCl 25 MG BEDTIME 05/23 2100 AC PO 06/22 Albumin Human 12.5 GM ASDIR PRN 05/23 1415 AC IV 06/23 1413 Lidocaine HCl 0.5 ML ASDIR PRN 05/23 1415 CKD I-DERMAL 06/23 1413 Mannitol 12.5 GM ASDIR PRN 05/23 1415 AC IV 06/23 1413 Sodium Chloride 2,000 ML ASDIR PRN 05/23 1415 A C 05/25 IV 06/23 1413 1423 Sodium Chloride 10 ML ASDIR PRN 05/23 1415 AC 0 05/25 IV 06/22 1414 1424 Sodium Chloride 250 ML ASDIR PRN 05/23 1415 AC IV 06/22 1414 Piperacillin Sod/ 3.375 GM Q12H 05/23 1300 AC 0 05/25 Tazobactam Sod IV 05/30 1259 1806 Sodium Chloride 100 ML Collagenase 1 APPLIC DAILY 05/22 899 AC 05/25 TOPICAL 06/21 0859 0829 Lidocaine 1 PATCH DAILY 05/21 899 AC 05/25 TOPICAL 06/20 0859 0828 Amitriptyline HCl 10 MG BEDTIME 05/20 2100 AC 05/25 PO 06/19 Triamcinolone 40 MG PROCEDURE 05/20 194 CKD Acetonide IM 06/19 194 Aspirin 81 MG DAILY 05/20 899 AC 05/25 PO 06/19 1300 0828 Clopidogrel Bisulfate 75 MG DAILY 05/20 899 AC 05/25 PO 06/19 1300 0828 Furosemide 40 MG DAILY 05/20 899 AC 05/25 PO 06/19 1300 0828 Polyethylene Glycol 17 GM DAILY 05/20 899 AC 05/21 PO 06/19 1300 1016 Senna 1 TAB DAILY 05/20 899 CKD 05/21 PO 06/19 1300 1015 Venlafaxine HCl 75 MG DAILY 05/20 899 AC 05/25 PO 06/19 1300 0828 Acetaminophen 650 MG Q6H PRN PRN 05/20 0845 AC PO 06/19 0844 Hydralazine HCl 10 MG Q6H PRN PRN 05/20 0845 AC PO 06/19 0844 Ondansetron HCl 4 MG TID PRN PRN 05/20 0845 AC SL 06/19 0844 Heparin Sodium 5,000 UNIT Q8H 05/19 2200 AC 04/ 14 SUBQ 06/19 1300 2028 Epoetin Donny-epbx 4,000 UNIT TuTIfeanyia@2100 05/19 2099 AC 05/24 SUBQ 06/19 Gabapentin 300 MG BEDTIME 05/19 2099 AC 05/25 PO 06/19 Metoprolol Tartrate 25 MG BID 05/19 2099 AC PO 06/19 Trazodone HCl 150 MG BEDTIME 05/19 2099 AC 05/12 4 PO 06/19 Zolpidem Tartrate 5 MG BEDTIME PRN PRN 05/19 AC 05/25 PO 06/19 1300 2027 Recent Impressions-Last 72 Hrs CAT SCAN - CT LOWER EXTRM W/O C RT 05/23 1728 Report Impression - Status: SIGNED Entered: 05/23/2020 1806 IMPRESSION: Above the knee amputation changes wi th complex soft tissue fluid collection at the stump site. There is los s of fatty medullary density at the stump site. Osteomyelitis is not excluded. Correlate with MRI as clinically indicated. SL: SG-H Impression By: [email or web address] - Dominic Mena M.D. ULTRASOUND - USG NDL PLACEMENT (Bxg/Asp) 05/24 1 434 Report Impression - Status: SIGNED Entered: 05/24/2020 1515 IMPRESSION: 1. Technically successful ultrasound-guided aspi ration of a right knee stump collection. Impression By: [email or web address] - Paloma Arvizu D.O. Vital Signs Date Temp Pulse Resp B/P B/P Mean Pulse Ox FiO2 05/25 36.4-36.5 59-71 15- 121-132/68-71 85.8- 91.5 96-97 Last Documented: Result Date Time Pulse Ox 97 05/25 2324 B/P 132/71 05/25 2324 B/P Mean 91.5 05/25 2324 Temp 36.5 05/25 2324 Pulse 59 05/25 2324 Resp 18 05/25 2324 O2 Delivery Room air 05/24 1937 24 hour I O ending at 0700: 05/25 0700 05/24 1900 Intake Total 600.00 1190 Output Total 400 Balance 200.00 1190 Intake, IV 120.00 Intake, Oral 480 1190 Number 1 Bowel Movements Number Voids 1 Output, Urine 400 PATIENT WEIGHT: Weight (lb): 171 Weight (oz): 12.16 Weight (kg): 77.909 Physical Exam General appearance: alert, awake Neck: no JVD Cardiovascular: regular rate rhythm Respiratory: aerating well, clear to auscultatio n Abdomen: non-tender, normal bowel sounds, soft Extremities: Extremities: RT AKA Neuro/CUSTODIAN MANAGER: alert, oriented x 3 Skin: dry, normal temperature Psychiatry: depressed, normal judgement/insight Diagnosis, Assessment Plan Free Text DxA P Notes Free text DxA P notes: Assessment: 1.Mechanical fall 2.Traumatic brain injury with subdural hematoma 3. Right AKA pulmonary 2020 4. IMpaired mobility/Impaired gait 5. History of depression 6. Generalized weakness 7. Phantom pain 8. End-stage renal disease on hemodialysis 3 day s a week 9. Anemia 10. History of coronary artery disease, hyperten willy, and hyperlipidemia 05/21/20 Patient's doing well Sitting in a wheelchair Participating in therapy Family visiting at the bedside 05/22/20 Patient participating in therapy daily Reportedly patient is depressed He answered all my questions but seems to be sad May 23, 2020 No leukocytosis, anemia Continue to monitor renal function CT of the right femur without contrast: [id number] amputation changes with complex soft tissue fluid collection at the stump site. There is loss of fatty medullary density at the stump site. Osteomyelit is is not excluded. Correlate with MRI. Continue wound care May 24, 2020 The patient underwent ultrasound-guided aspirati on of superficial fluid collection May 25, 2020 Patient was started on Zoloft and venlafaxine Continue psychiatric medications Supportive psychotherapy for anxiety and depress ion Status post US guided aspiration of right AKA st ump yesterday. Continue hemodialysis and wound care Monitor H H Continue working with rehab Plan of care: -Continue with comprehensive inpatient rehabilit [facility] rehab team -Pain control -Fall precaution -DVT prophylaxis subcu heparin -GI prophylaxis patient currently on Protonix -Pain control as pain management -Seizure precaution patient on Keppra -Continues present medications -Monitor labs -Plan of care discussed with the patient, galina marcano nurse, and Dr. Cavazos. Electronically Signed by Javier Meek NP on 0 05/27/20 at 0955 RPT #:[id number] END OF REPORT 2020-05-25 23:36:00-00:00 [facility] Prog. Note REPORT#:[id number] REPORT STATUS: Signed DATE:05/25/20 TIME: 2335 PATIENT: DARIEN GROSSMAN UNIT #: [id number] ROOM/BED: [place] [id number] : 45 AGE: 74 SEX: M ATTEND: Rosa Curtis MD ADM AUTHOR: Javier Meek MONOGRAM MAKER * ALL edits or amendments must be made on the C-Note/computer document * Javier Meek 05/25/20 2336: Subjective Chief Complaint: Right AKA Possible depression Review of Systems Constitutional: Denies: chills, fever. ENT: Denies: earache, nasal congestion, sore throat. Respiratory: Denies: hemoptysis, parox no cturnal dyspnea, pleurisy, pleuritic pain, pneumonia , SOB, wheezing. Cardiovascular: Denies: chest pain, palpitations. GI: Denies: abdominal pain, nausea, vomiting. : Denies: flank pain, frequency, hematuria. Musculoskeletal: Denies: extremity pain, extr emity swelling, joint pain, lumbar pain, neck pain. Neuro: Denies: change in LOC, confusion, dizziness, foc al weakness, gait problem, headache, lightheaded, numbness, seizure, slurre d speech, spinning sensation, syncope, unable to speak, vision change. Psych: Denies: agitation, anxiety, auditory hallucinati on, change in mental status, confusion, delusional, depre ssion, homicidal ideation, hostile, insomnia, stress , suicidal ideation, visual hallucination. All systems rev neg: except as marked Objective General VS/I O: Laboratory Tests 05/25 05/23 05/23 0546 1300 1300 Chemistry Sodium (134 - 147 mEq/L) 136 133 L Potassium (3.4 - 5.0 mEq/L) 3.8 4.1 Chloride (100 - 108 mEq/L) 101 97 L Carbon Dioxide (21 - 33 mEq/l) 24 27 Anion Gap (0 - 20) 15 13 BUN (7 - 18 mg/dL) 33 H 54 H Creatinine (0.6 - 1.3 mg/dL) 4.2 H 4.5 H Glomerular Filtr Rate (70 - 80) 13.9 L 12.9 L Glucose (70 - 110 mg/dL) 79 200 H Calcium (8.0 - 10.5 mg/dL) 8.9 9.6 Phosphorus (2.5 - 4.9 MG/DL) 3.9 Albumin (3.4 - 5.0 g/dL) 3.20 L Prealbumin (16.0 - 40.0 mg/dL) 14.3 L Laboratory Tests 05/25 05/23 0546 1300 Hematology WBC (4.5 - 11.0 x10 3/uL) 8.4 9.7 RBC (4.00 - 5.60 x10 6/uL) 3.22 L 3.31 L Hgb (12.5 - 16.9 g/dL) 9.2 L 9.5 L Hct (37.5 - 50.7 %) 31.3 L 29.6 L MCV (81.0 - 99.0 fL) 97.2 89.4 MCH (27.0 - 33.0 pg) 28.6 28.7 MCHC (33.0 - 37.0 g/dL) 29.4 L 32.1 L RDW (11.5 - 14.5 %) 14.5 14.4 Plt Count (150 - 400 x10 3/uL) 356 395 MPV (7.0 - 9.0 fL) 8.6 8.3 Neut % (Auto) (56.0 - 77.0 %) 61.1 78.9 H Lymph % (Auto) (14.0 - 32.0 %) 18.0 7.0 L Dolores % (Auto) (4.8 - 9.0 %) 10.5 H 7.2 Eos % (Auto) (0.3 - 3.7 %) 8.8 H 5.9 H Baso % (Auto) (0.0 - 2.0 %) 0.8 0.4 Neut # (Auto) (2.0 - 7.6 x10 3/uL) 5.13 7.67 H Lymph # (Auto) (1.0 - 3.8 x10 3/uL) 1.51 0.68 L Dolores # (Auto) (0.1 - 0.8 x10 3/uL) 0.88 H 0.70 Eos # (Auto) (0.0 - 0.2 x10 3/uL) 0.74 H 0.57 H Baso # (Auto) (0.0 - 0.2 x10 3/uL) 0.07 0.04 Abs Immat Gran (auto) (0.00 - 0.03 x10 3/uL) 0. 07 H 0.06 H Add Manual Diff NO NO Immature Gran % (0.0 - 2.0 %) 0.8 0.6 Nucleated RBC % (0 - 0 %) 0.0 0.0 Nucleated RBCs # (Man) (0.0 - 0.1 x10 3/uL) 0.0 0 0.00 Chemistry: 05/25 0546 Chemistry Sodium (134 - 147 mEq/L) 136 Potassium (3.4 - 5.0 mEq/L) 3.8 Chloride (100 - 108 mEq/L) 101 Carbon Dioxide (21 - 33 mEq/l) 24 BUN (7 - 18 mg/dL) 33 H Creatinine (0.6 - 1.3 mg/dL) 4.2 H Glucose (70 - 110 mg/dL) 79 Calcium (8.0 - 10.5 mg/dL) 8.9 Home Medications: Medication Dose/Rte/Freq Days Qty Entered Last Max Daily Dose Reviewed busPIRone (BUSPAR) 10 MG PO BEDTIME 05/13/20 Strength: 10 MG TAB 1443 2255 HYDROcodone/APAP 1 TAB PO 05/13/20 05/19/20 (NORCO 10/325) Q6H PRN PRN PAIN 1443 2255 Strength: 10 MG-325 MG TAB ZOLPIDEM (AMBIEN) 10 MG PO 05/13/20 05/19/20 Strength: 10 MG TAB BEDTIME PRN 1444 2255 INSOMNIA GABAPENTIN (NEURONTIN) 300 MG PO BEDTIME 05/19/20 Strength: 300 MG CAP 1445 2255 DESVENLAFAXINE ER 25 MG PO DAILY 05/13/2005/19 (PRISTIQ) 1446 2255 Strength: 50 MG TAB.SR.24H traZODone (DESYREL) 150 MG PO BEDTIME 05/13/20 05/19/20 Strength: 150 MG TAB 1446 2255 FUROSEMIDE (LASIX) 40 MG PO DAILY 05/13/2010/01 Strength: 40 MG TAB 1447 2255 METOPROLOL TARTRATE 25 MG PO BID 05/13/2010/01 (LOPRESSOR) 144 2255 Strength: 25 MG TAB levETIRAcetam (KEPPRA) 500 MG PO Q12HR 10 05/0105/19/20 Strength: 500 MG TAB 1333 2255 Current Hospital Medications: Anti-Infective Agents Sig/Tatum Start time Last Medication Dose Route Stop Time Status Admin Piperacillin Sod/ 3.375 GM Q12H 05/23 1300 AC 0 05/25 Tazobactam Sod IV 05/30 1259 1806 (ZOSYN 3.375GM) Sodium Chloride 100 ML (SODIUM CHLORIDE 0.9% 100 ML) Blood Derivatives Sig/Tatum Start time Last Medication Dose Route Stop Time Status Admin Albumin Human 12.5 GM ASDIR PRN 05/23 1415 AC (ALBUMINAR-25%) IV 06/23 141 Blood Formation,Coagulation Sig/Tatum Start time Last Medication Dose Route Stop Time Status Admin Clopidogrel Bisulfate 75 MG DAILY 05/20 0900 AC 05/25 (Plavix) PO 06/19 1300 0828 Heparin Sodium 5,000 UNIT Q8H 05/19 2200 AC (HEPARIN 5000 UNITS/ SUBQ 06/19 1300 2028 ML) Epoetin Donny-epbx 4,000 UNIT TuThSa@2100 05/19 2100 AC 05/24 (RETACRIT) SUBQ 06/19 1300 2059 Cardiovascular Drugs Sig/Tatum Start time Last Medication Dose Route Stop Time Status Admin Lidocaine HCl 0.5 ML ASDIR PRN 05/23 1415 CKD (LIDOCAINE HCL/PF) I-DERMAL 06/23 1413 Hydralazine HCl 10 MG Q6H PRN PRN 05/20 0845 AC (APRESOLINE) PO 06/19 0844 Metoprolol Tartrate 25 MG BID 05/19 2100 AC (LOPRESSOR) PO 06/19 1300 2023 Central Nervous System Agents Sig/Tatum Start time Last Medication Dose Route Stop Time Status Admin Hydrocodone Bitart/ 1 TAB Q4H PRN PRN 05/24 141 5 AC 05/25 Acetaminophen PO 06/10 1200 1823 (NORCO 7.5/325 TABLET) Sertraline HCl 25 MG BEDTIME 05/23 2099 AC 05/12 4 (ZOLOFT) PO 06/22 Amitriptyline HCl 10 MG BEDTIME 05/20 2099 AC 0 05/25 (ELAVIL) PO 06/19 Aspirin 81 MG DAILY 05/20 899 AC 05/25 (ASPIRIN) PO 06/19 1300 0828 Venlafaxine HCl 75 MG DAILY 05/20 899 AC 05/25 (Effexor XR 37.5 mg) PO 06/19 1300 0828 Acetaminophen 650 MG Q6H PRN PRN 05/20 0845 AC (TYLENOL) PO 06/20 843 Gabapentin 300 MG BEDTIME 05/19 2099 AC 05/25 (NEURONTIN) PO 06/19 1300 2022 Trazodone HCl 150 MG BEDTIME 05/19 2099 AC 05/12 4 (DESYREL) PO 06/19 1300 2021 Zolpidem Tartrate 5 MG BEDTIME PRN PRN 05/19 20 00 AC 05/25 (AMBIEN) PO 06/19 1300 2027 Electrolytic, Caloric, And Nadia Sig/Tatum Start time Last Medication Dose Route Stop Time Status Admin Mannitol 12.5 GM ASDIR PRN 05/23 1415 AC (MANNITOL 25% 12.5GM/ IV 06/23 1413 50ML) Sodium Chloride 2,000 ML ASDIR PRN 05/23 1415 A C 05/25 (SODIUM CHLORIDE IV 06/23 1413 1423 0.9%) Sodium Chloride 10 ML ASDIR PRN 05/23 1415 AC 0 05/25 (SODIUM CHLORIDE) IV 06/22 141 1424 Sodium Chloride 250 ML ASDIR PRN 05/23 1415 AC (SODIUM CHLORIDE IV 06/22 1414 0.9%) Furosemide 40 MG DAILY 05/20 899 AC 05/25 (LASIX) PO 06/19 1300 0828 Eye, Ear, Nose And Throat (Een Sig/Tatum Start time Last Medication Dose Route Stop Time Status Admin Triamcinolone 40 MG PROCEDURE 05/20 1944 CKD Acetonide IM 06/20 1943 (KENALOG-40 INJECTION) Gastrointestinal Drugs Sig/Tatum Start time Last Medication Dose Route Stop Time Status Admin Polyethylene Glycol 17 GM DAILY 05/20 899 AC 0 05/21 (MIRALAX) PO 06/19 1300 1016 Senna 1 TAB DAILY 05/20 899 CKD 05/21 (SENOKOT) PO 06/19 1300 1015 Ondansetron HCl 4 MG TID PRN PRN 05/20 0845 AC (ZOFRAN ODT) SL 06/19 0844 Local Anesthetics (Parenteral) Sig/Tatum Start time Last Medication Dose Route Stop Time Status Admin Lidocaine 1 PATCH DAILY 05/21 899 AC 05/25 (LIDODERM) TOPICAL 06/20 0859 0828 Skin And Mucous Membrane Agent Sig/Tatum Start time Last Medication Dose Route Stop Time Status Admin Collagenase 1 APPLIC DAILY 05/22 899 AC 05/25 (SANTYL 2GM TOPICAL) TOPICAL 06/21 0859 0829 Vital Signs: Date Time Temp Pulse Resp B/P B/P Pulse O2 O2 F low FiO2 Mean Ox Delivery Rate 05/25 2324 36.5 59 18 132/71 91.5 97 05/25 2008 36.4 71 15 121/68 85.8 96 05/25 0700 05/24 2300 05/24 1500 Intake Total 600.00 250 940 Output Total 400 Balance 200.00 250 940 Intake, IV 120.00 Intake, Oral 480 250 940 Number 1 Bowel Movements Number Voids 1 Output, Urine 400 Current Medications Sig/Tatum Start time Last Medication Dose Route Stop Time Status Admin Hydrocodone Bitart/ 1 TAB Q4H PRN PRN 05/24 141 5 AC 05/25 Acetaminophen PO 06/10 1200 1823 Sertraline HCl 25 MG BEDTIME 05/23 2100 AC 05/12 4 PO 06/22 2058 2023 Albumin Human 12.5 GM ASDIR PRN 05/23 1415 AC IV 06/23 1413 Lidocaine HCl 0.5 ML ASDIR PRN 05/23 1415 CKD I-DERMAL 06/23 1413 Mannitol 12.5 GM ASDIR PRN 05/23 1415 AC IV 06/23 1413 Sodium Chloride 2,000 ML ASDIR PRN 05/23 1415 A C 05/25 IV 06/23 1413 1423 Sodium Chloride 10 ML ASDIR PRN 05/23 1415 AC 0 05/25 IV 06/22 1414 1424 Sodium Chloride 250 ML ASDIR PRN 05/23 1415 AC IV 06/22 1414 Piperacillin Sod/ 3.375 GM Q12H 05/23 1300 AC 0 05/25 Tazobactam Sod IV 05/30 1259 1806 Sodium Chloride 100 ML Collagenase 1 APPLIC DAILY 05/22 899 AC 05/25 TOPICAL 06/21 0859 0829 Lidocaine 1 PATCH DAILY 05/21 899 AC 05/25 TOPICAL 06/20 0859 0828 Amitriptyline HCl 10 MG BEDTIME 05/20 2099 AC 0 05/25 PO 06/19 Triamcinolone 40 MG PROCEDURE 05/20 1944 CKD Acetonide IM 06/20 1943 Aspirin 81 MG DAILY 05/20 899 AC 05/25 PO 06/19 1300 0828 Clopidogrel Bisulfate 75 MG DAILY 05/20 899 AC 05/25 PO 06/19 1300 0828 Furosemide 40 MG DAILY 05/20 899 AC 05/25 PO 06/19 1300 0828 Polyethylene Glycol 17 GM DAILY 05/20 899 AC 0 05/21 PO 06/19 1300 1016 Senna 1 TAB DAILY 05/20 899 CKD 05/21 PO 06/19 1300 1015 Venlafaxine HCl 75 MG DAILY 05/20 899 AC 05/25 PO 06/19 1300 0828 Acetaminophen 650 MG Q6H PRN PRN 05/20 0845 AC PO 06/19 0844 Hydralazine HCl 10 MG Q6H PRN PRN 05/20 0845 AC PO 06/19 0844 Ondansetron HCl 4 MG TID PRN PRN 05/20 0845 AC SL 06/19 0844 Heparin Sodium 5,000 UNIT Q8H 05/19 2199 AC SUBQ 06/19 1300 2027 Epoetin Donny-epbx 4,000 UNIT TuThSa@2100 05/19 2099 AC 05/24 SUBQ 06/19 1300 205 Gabapentin 300 MG BEDTIME 05/19 2099 AC 05/25 PO 06/19 1300 2022 Metoprolol Tartrate 25 MG BID 05/19 2099 AC PO 06/19 1300 2022 Trazodone HCl 150 MG BEDTIME 05/19 2099 AC 05/12 PO 06/19 1300 2021 Zolpidem Tartrate 5 MG BEDTIME PRN PRN 05/19 20 00 AC 05/25 PO 06/19 1300 2027 Recent Impressions-Last 72 Hrs CAT SCAN - CT LOWER EXTRM W/O C RT 05/23 1728 Report Impression - Status: SIGNED Entered: 05/23/2020 1806 IMPRESSION: Above the knee amputation changes wi th complex soft tissue fluid collection at the stump site. There is los s of fatty medullary density at the stump site. Osteomyelitis is not excluded. Correlate with MRI as clinically indicated. SL: SG-H Impression By: [email or web address] - Dominic Mena M.D. ULTRASOUND - USG NDL PLACEMENT (Bxg/Asp) 05/24 1 434 Report Impression - Status: SIGNED Entered: 05/24/2020 1515 IMPRESSION: 1. Technically successful ultrasound-guided aspi ration of a right knee stump collection. Impression By: [email or web address] - Paloma Arvizu D.O. Vital Signs Date Temp Pulse Resp B/P B/P Mean Pulse Ox FiO 2 05/25 36.4-36.5 59-71 15-18 121-132/68-71 85.8- 91.5 96-97 Last Documented: Result Date Time Pulse Ox 97 05/25 2325 B/P 132/71 05/25 2325 B/P Mean 91.5 05/25 2325 Temp 36.5 05/25 2325 Pulse 59 05/25 2325 Resp 18 05/25 2325 O2 Delivery Room air 05/24 193 24 hour I O ending at 0700: 05/25 0700 05/24 1900 Intake Total 600.00 1190 Output Total 400 Balance 200.00 1190 Intake, IV 120.00 Intake, Oral 480 1190 Number 1 Bowel Movements Number Voids 1 Output, Urine 400 PATIENT WEIGHT: Weight (lb): 171 Weight (oz): 12.16 Weight (kg): 77.909 Physical Exam General appearance: alert, awake Neck: no JVD Cardiovascular: regular rate rhythm Respiratory: aerating well, clear to auscultatio n Abdomen: non-tender, normal bowel sounds, soft Extremities: Extremities: RT AKA Neuro/CUSTODIAN MANAGER: alert, oriented x 3 Skin: dry, normal temperature Psychiatry: depressed, normal judgement/insight Diagnosis, Assessment Plan Free Text DxA P Notes Free text DxA P notes: Assessment: 1.Mechanical fall 2.Traumatic brain injury with subdural hematoma 3. Right AKA pulmonary 2020 4. IMpaired mobility/Impaired gait 5. History of depression 6. Generalized weakness 7. Phantom pain 8. End-stage renal disease on hemodialysis 3 day s a week 9. Anemia 10. History of coronary artery disease, hyperten willy, and hyperlipidemia 05/21/20 Patient's doing well Sitting in a wheelchair Participating in therapy Family visiting at the bedside 05/22/20 Patient participating in therapy daily Reportedly patient is depressed He answered all my questions but seems to be sad May 23, 2020 No leukocytosis, anemia Continue to monitor renal function CT of the right femur without contrast: [id number] amputation changes with complex soft tissue fluid collection at the stump site. There is loss of fatty medullary density at the stump site. Osteomyelit is is not excluded. Correlate with MRI. Continue wound care May 24, 2020 The patient underwent ultrasound-guided aspirati on of superficial fluid collection May 25, 2020 Patient was started on Zoloft and venlafaxine Continue psychiatric medications Supportive psychotherapy for anxiety and depress ion Status post US guided aspiration of right AKA st ump yesterday. Continue hemodialysis and wound care Monitor H H Continue working with rehab Plan of care: -Continue with comprehensive inpatient rehabilit [facility] rehab team -Pain control -Fall precaution -DVT prophylaxis subcu heparin -GI prophylaxis patient currently on Protonix -Pain control as pain management -Seizure precaution patient on Keppra -Continues present medications -Monitor labs -Plan of care discussed with the patient, galina palma's nurse, and Dr. Cavazos. Danny Cavazos 05/27/203: Attestations Physician Attestation Agree w/findings plan: Patient seen and examined on 05/25/2020. I agree with the findings and plan as documented by JOSE Meek. Plan of care coordinat ed with JOSE Meek. Pertinent labs, Imaging, and store sales consultant evaluations review ed. 74-year-old male was admitted to inpatient rehab for comprehensive rehabilitation. He was start ed on Zoloft and venlafaxine. We will continue with psychiatric medications and supportive psychotherapy for anxiety and depression. He underwent US guided aspiration of right AKA stump yesterday. We will continue with hemodialysis and wound care, compr ehensive inpatient rehabilitation was per rehab team, pain control, fall precautions, DVT prophylaxis with subcu heparin, GI prophylaxis w ith Protonix, pain control as pain management, seizure precautions with Keppra , and present medications. We will continue to monitor his labs. We will myriam nue to monitor H H. Electronically Signed by Javier Meek NP on 0 05/27/20 at 0955 RPT #:[id number] END OF REPORT 2020-05-25 23:36:00-00:00 [facility] Prog. Note REPORT#:[id number] REPORT STATUS: Signed DATE:05/25/20 TIME: 2335 PATIENT: DARIEN GROSSMAN UNIT #: [id number] ROOM/BED: [place] [address] : 45 AGE: 74 SEX: M ATTEND: Rosa Curtis MD ADM AUTHOR: Javier Meek MONOGRAM MAKER * ALL edits or amendments must be made on the C-Note/Above All Software document * Javier Meek 05/25/20 2336: Subjective Chief Complaint: Right AKA Possible depression Review of Systems Constitutional: Denies: chills, fever. ENT: Denies: earache, nasal congestion, sore throat. Respiratory: Denies: hemoptysis, parox no cturnal dyspnea, pleurisy, pleuritic pain, pneumonia , SOB, wheezing. Cardiovascular: Denies: chest pain, palpitations. GI: Denies: abdominal pain, nausea, vomiting. : Denies: flank pain, frequency, hematuria. Musculoskeletal: Denies: extremity pain, extr emity swelling, joint pain, lumbar pain, neck pain. Neuro: Denies: change in LOC, confusion, dizziness, foc al weakness, gait problem, headache, lightheaded, numbness, seizure, slurre d speech, spinning sensation, syncope, unable to speak, vision change. Psych: Denies: agitation, anxiety, auditory hallucinati on, change in mental status, confusion, delusional, depre ssion, homicidal ideation, hostile, insomnia, stress , suicidal ideation, visual hallucination. All systems rev neg: except as marked Objective General VS/I O: Laboratory Tests 05/25 05/23 05/23 0546 1300 1300 Chemistry Sodium (134 - 147 mEq/L) 136 133 L Potassium (3.4 - 5.0 mEq/L) 3.8 4.1 Chloride (100 - 108 mEq/L) 101 97 L Carbon Dioxide (21 - 33 mEq/l) 24 27 Anion Gap (0 - 20) 15 13 BUN (7 - 18 mg/dL) 33 H 54 H Creatinine (0.6 - 1.3 mg/dL) 4.2 H 4.5 H Glomerular Filtr Rate (70 - 80) 13.9 L 12.9 L Glucose (70 - 110 mg/dL) 79 200 H Calcium (8.0 - 10.5 mg/dL) 8.9 9.6 Phosphorus (2.5 - 4.9 MG/DL) 3.9 Albumin (3.4 - 5.0 g/dL) 3.20 L Prealbumin (16.0 - 40.0 mg/dL) 14.3 L Laboratory Tests 05/25 05/23 0546 1300 Hematology WBC (4.5 - 11.0 x10 3/uL) 8.4 9.7 RBC (4.00 - 5.60 x10 6/uL) 3.22 L 3.31 L Hgb (12.5 - 16.9 g/dL) 9.2 L 9.5 L Hct (37.5 - 50.7 %) 31.3 L 29.6 L MCV (81.0 - 99.0 fL) 97.2 89.4 MCH (27.0 - 33.0 pg) 28.6 28.7 MCHC (33.0 - 37.0 g/dL) 29.4 L 32.1 L RDW (11.5 - 14.5 %) 14.5 14.4 Plt Count (150 - 400 x10 3/uL) 356 395 MPV (7.0 - 9.0 fL) 8.6 8.3 Neut % (Auto) (56.0 - 77.0 %) 61.1 78.9 H Lymph % (Auto) (14.0 - 32.0 %) 18.0 7.0 L Dolores % (Auto) (4.8 - 9.0 %) 10.5 H 7.2 Eos % (Auto) (0.3 - 3.7 %) 8.8 H 5.9 H Baso % (Auto) (0.0 - 2.0 %) 0.8 0.4 Neut # (Auto) (2.0 - 7.6 x10 3/uL) 5.13 7.67 H Lymph # (Auto) (1.0 - 3.8 x10 3/uL) 1.51 0.68 L Dolores # (Auto) (0.1 - 0.8 x10 3/uL) 0.88 H 0.70 Eos # (Auto) (0.0 - 0.2 x10 3/uL) 0.74 H 0.57 H Baso # (Auto) (0.0 - 0.2 x10 3/uL) 0.07 0.04 Abs Immat Gran (auto) (0.00 - 0.03 x10 3/uL) 0. 07 H 0.06 H Add Manual Diff NO NO Immature Gran % (0.0 - 2.0 %) 0.8 0.6 Nucleated RBC % (0 - 0 %) 0.0 0.0 Nucleated RBCs # (Man) (0.0 - 0.1 x10 3/uL) 0.0 0 0.00 Chemistry: 05/25 0546 Chemistry Sodium (134 - 147 mEq/L) 136 Potassium (3.4 - 5.0 mEq/L) 3.8 Chloride (100 - 108 mEq/L) 101 Carbon Dioxide (21 - 33 mEq/l) 24 BUN (7 - 18 mg/dL) 33 H Creatinine (0.6 - 1.3 mg/dL) 4.2 H Glucose (70 - 110 mg/dL) 79 Calcium (8.0 - 10.5 mg/dL) 8.9 Home Medications: Medication Dose/Rte/Freq Days Qty Entered Last Max Daily Dose Reviewed busPIRone (BUSPAR) 10 MG PO BEDTIME 05/13/20 Strength: 10 MG TAB 1443 2255 HYDROcodone/APAP 1 TAB PO 05/13/20 05/19/20 (NORCO 10/325) Q6H PRN PRN PAIN 1443 2255 Strength: 10 MG-325 MG TAB ZOLPIDEM (AMBIEN) 10 MG PO 05/13/20 05/19/20 Strength: 10 MG TAB BEDTIME PRN 1444 2255 INSOMNIA GABAPENTIN (NEURONTIN) 300 MG PO BEDTIME 05/19/20 Strength: 300 MG CAP 1445 2255 DESVENLAFAXINE ER 25 MG PO DAILY 05/13/20 0410/01 (PRISTIQ) 1446 2255 Strength: 50 MG TAB.SR.24H traZODone (DESYREL) 150 MG PO BEDTIME 05/13/20 05/19/20 Strength: 150 MG TAB 1446 2255 FUROSEMIDE (LASIX) 40 MG PO DAILY 05/13/2010/01 Strength: 40 MG TAB 1447 2255 METOPROLOL TARTRATE 25 MG PO BID 05/13/2005/19 (LOPRESSOR) 1448 2255 Strength: 25 MG TAB levETIRAcetam (KEPPRA) 500 MG PO Q12HR 10 05/1405/19/20 Strength: 500 MG TAB 1333 2255 Current Hospital Medications: Anti-Infective Agents Sig/Tatum Start time Last Medication Dose Route Stop Time Status Admin Piperacillin Sod/ 3.375 GM Q12H 05/23 1300 AC 0 05/25 Tazobactam Sod IV 05/30 1259 1806 (ZOSYN 3.375GM) Sodium Chloride 100 ML (SODIUM CHLORIDE 0.9% 100 ML) Blood Derivatives Sig/Tatum Start time Last Medication Dose Route Stop Time Status Admin Albumin Human 12.5 GM ASDIR PRN 05/23 1415 AC (ALBUMINAR-25%) IV 06/23 1413 Blood Formation,Coagulation Sig/Tatum Start time Last Medication Dose Route Stop Time Status Admin Clopidogrel Bisulfate 75 MG DAILY 05/20 09 AC 05/25 (Plavix) PO 06/19 1300 0828 Heparin Sodium 5,000 UNIT Q8H 05/19 2200 AC (HEPARIN 5000 UNITS/ SUBQ 06/19 1300 2028 ML) Epoetin Donny-epbx 4,000 UNIT TuThSa@2100 05/19 2100 AC 05/24 (RETACRIT) SUBQ 06/19 1300 2059 Cardiovascular Drugs Sig/Tatum Start time Last Medication Dose Route Stop Time Status Admin Lidocaine HCl 0.5 ML ASDIR PRN 05/23 1415 CKD (LIDOCAINE HCL/PF) I-DERMAL 06/23 1413 Hydralazine HCl 10 MG Q6H PRN PRN 05/20 0845 AC (APRESOLINE) PO 06/19 0844 Metoprolol Tartrate 25 MG BID 05/19 2100 AC (LOPRESSOR) PO 06/19 1300 2023 Central Nervous System Agents Sig/Attum Start time Last Medication Dose Route Stop Time Status Admin Hydrocodone Bitart/ 1 TAB Q4H PRN PRN 05/24 141 5 AC 05/25 Acetaminophen PO 06/10 1200 1823 (NORCO 7.5/325 TABLET) Sertraline HCl 25 MG BEDTIME 05/23 2099 AC 05/12 4 (ZOLOFT) PO 06/22 Amitriptyline HCl 10 MG BEDTIME 05/20 2099 AC 0 05/25 (ELAVIL) PO 06/19 Aspirin 81 MG DAILY 05/20 899 AC 05/25 (ASPIRIN) PO 06/19 1299 08 Venlafaxine HCl 75 MG DAILY 05/20 899 AC 05/25 (Effexor XR 37.5 mg) PO 06/19 Acetaminophen 650 MG Q6H PRN PRN 05/20 844 AC (TYLENOL) PO 06/20 843 Gabapentin 300 MG BEDTIME 05/19 2099 AC 05/25 (NEURONTIN) PO 06/19 Trazodone HCl 150 MG BEDTIME 05/19 2099 AC 05/12 4 (DESYREL) PO 06/19 Zolpidem Tartrate 5 MG BEDTIME PRN PRN 05/19 20 00 AC 05/25 (AMBIEN) PO 06/19 1300 2027 Electrolytic, Caloric, And Nadia Sig/Tatum Start time Last Medication Dose Route Stop Time Status Admin Mannitol 12.5 GM ASDIR PRN 05/23 141 AC (MANNITOL 25% 12.5GM/ IV 06/23 1413 50ML) Sodium Chloride 2,000 ML ASDIR PRN 05/23 1415 AC 05/25 (SODIUM CHLORIDE IV 06/23 1413 1423 0.9%) Sodium Chloride 10 ML ASDIR PRN 05/23 1415 AC 0 05/25 (SODIUM CHLORIDE) IV 06/22 141 1424 Sodium Chloride 250 ML ASDIR PRN 05/23 1415 AC (SODIUM CHLORIDE IV 06/22 1414 0.9%) Furosemide 40 MG DAILY 05/20 899 AC 05/25 (LASIX) PO 06/19 1300 0828 Eye, Ear, Nose And Throat (Een Sig/Tatum Start time Last Medication Dose Route Stop Time Status Admin Triamcinolone 40 MG PROCEDURE 05/20 1944 CKD Acetonide IM 06/20 1943 (KENALOG-40 INJECTION) Gastrointestinal Drugs Sig/Tatum Start time Last Medication Dose Route Stop Time Status Admin Polyethylene Glycol 17 GM DAILY 05/20 899 AC 0 05/21 (MIRALAX) PO 06/19 1300 1016 Senna 1 TAB DAILY 05/20 0900 CKD 05/21 (SENOKOT) PO 06/19 1300 1015 Ondansetron HCl 4 MG TID PRN PRN 05/20 0845 AC (ZOFRAN ODT) SL 06/19 0844 Local Anesthetics (Parenteral) Sig/Tatum Start time Last Medication Dose Route Stop Time Status Admin Lidocaine 1 PATCH DAILY 05/21 899 AC 05/25 (LIDODERM) TOPICAL 06/20 0859 0828 Skin And Mucous Membrane Agent Sig/Tatum Start time Last Medication Dose Route Stop Time Status Admin Collagenase 1 APPLIC DAILY 05/22 899 AC 05/25 (SANTYL 2GM TOPICAL) TOPICAL 06/21 0859 0829 Vital Signs: Date Time Temp Pulse Resp B/P B/P Pulse O2 O2 Flow FiO2 Mean Ox Delivery Rate 05/255 36.5 59 18 132/71 91.5 97 05/25 2008 36.4 71 15 121/68 85.8 96 05/25 0700 05/24 2300 05/24 1500 Intake Total 600.00 250 940 Output Total 400 Balance 200.00 250 940 Intake, IV 120.00 Intake, Oral 480 250 940 Number 1 Bowel Movements Number Voids 1 Output, Urine 400 Current Medications Sig/Tatum Start time Last Medication Dose Route Stop Time Status Admin Hydrocodone Bitart/ 1 TAB Q4H PRN PRN 05/24 141 5 AC 05/25 Acetaminophen PO 06/10 1200 1823 Sertraline HCl 25 MG BEDTIME 05/23 2100 AC 05/12 4 PO 06/22 Albumin Human 12.5 GM ASDIR PRN 05/23 1415 AC IV 06/23 1413 Lidocaine HCl 0.5 ML ASDIR PRN 05/23 1415 CKD I-DERMAL 06/23 1413 Mannitol 12.5 GM ASDIR PRN 05/23 1415 AC IV 06/23 1413 Sodium Chloride 2,000 ML ASDIR PRN 05/23 1415 A C 05/25 IV 06/23 1413 1423 Sodium Chloride 10 ML ASDIR PRN 05/23 1415 AC 0 05/25 IV 06/22 1414 1424 Sodium Chloride 250 ML ASDIR PRN 05/23 1415 AC IV 06/22 1414 Piperacillin Sod/ 3.375 GM Q12H 05/23 1300 AC 0 05/25 Tazobactam Sod IV 05/30 1259 1806 Sodium Chloride 100 ML Collagenase 1 APPLIC DAILY 05/22 899 AC 05/25 TOPICAL 06/21 0859 0829 Lidocaine 1 PATCH DAILY 05/21 899 AC 05/25 TOPICAL 06/20 0859 0828 Amitriptyline HCl 10 MG BEDTIME 05/20 2099 AC 05/25 PO 06/19 Triamcinolone 40 MG PROCEDURE 05/20 1944 CKD Acetonide IM 06/20 1943 Aspirin 81 MG DAILY 05/20 899 AC 05/25 PO 06/19 1300 0828 Clopidogrel Bisulfate 75 MG DAILY 05/20 899 AC 05/25 PO 06/19 1300 0828 Furosemide 40 MG DAILY 05/20 899 AC 05/25 PO 06/19 1300 0828 Polyethylene Glycol 17 GM DAILY 05/20 899 AC 05/21 PO 06/19 1300 1016 Senna 1 TAB DAILY 05/20 899 CKD 05/21 PO 06/19 1300 1015 Venlafaxine HCl 75 MG DAILY 05/20 899 AC 05/25 PO 06/19 1300 0828 Acetaminophen 650 MG Q6H PRN PRN 05/20 0845 AC PO 06/19 0844 Hydralazine HCl 10 MG Q6H PRN PRN 05/20 0845 A C PO 06/19 0844 Ondansetron HCl 4 MG TID PRN PRN 05/20 0845 AC SL 06/19 0844 Heparin Sodium 5,000 UNIT Q8H 05/19 2199 AC SUBQ 06/19 1300 2028 Epoetin Don[facility]epbx 4,000 [facility] 05/19 2099 AC 05/24 SUBQ 06/19 1300 205 Gabapentin 300 MG BEDTIME 05/19 2099 AC 05/25 PO 06/19 1300 202 Metoprolol Tartrate 25 MG BID 05/19 2099 AC PO 06/19 1300 202 Trazodone HCl 150 MG BEDTIME 05/19 2099 AC 05/12 4 PO 06/19 1300 202 Zolpidem Tartrate 5 MG BEDTIME PRN PRN 05/19 20 00 AC 05/25 PO 06/19 1300 202 Recent Impressions-Last 72 Hrs CAT SCAN - CT LOWER EXTRM W/O C RT 05/23 1728 Report Impression - Status: SIGNED Entered: 05/23/2020 1806 IMPRESSION: Above the knee amputation changes wi th complex soft tissue fluid collection at the stump site. There is los s of fatty medullary density at the stump site. Osteomyelitis is not excluded. Correlate with MRI as clinically indicated. SL: SG-H Impression By: [email or web address] - Dominic Mena M.D. ULTRASOUND - USG NDL PLACEMENT (Bxg/Asp) 05/24 1 434 Report Impression - Status: SIGNED Entered: 05/24/2020 1515 IMPRESSION: 1. Technically successful ultrasound-guided aspi ration of a right knee stump collection. Impression By: [id number] - Paloma Arvizu D.O. Vital Signs Date Temp Pulse Resp B/P B/P Mean Pulse Ox FiO2 05/25 36.4-36.5 59-71 15-18 121-132/68-71 85.8- 91.5 96-97 Last Documented: Result Date Time Pulse Ox 97 05/25 2325 B/P 132/71 05/25 2325 B/P Mean 91.5 05/25 2325 Temp 36.5 05/25 2325 Pulse 59 05/25 2325 Resp 18 05/25 2325 O2 Delivery Room air 05/24 1938 24 hour I O ending at 0700: 05/25 0700 05/24 1900 Intake Total 600.00 1190 Output Total 400 Balance 200.00 1190 Intake, IV 120.00 Intake, Oral 480 1190 Number 1 Bowel Movements Number Voids 1 Output, Urine 400 PATIENT WEIGHT: Weight (lb): 171 Weight (oz): 12.16 Weight (kg): 77.909 Physical Exam General appearance: alert, awake Neck: no JVD Cardiovascular: regular rate rhythm Respiratory: aerating well, clear to auscultatio n Abdomen: non-tender, normal bowel sounds, soft Extremities: Extremities: RT AKA Neuro/CUSTODIAN MANAGER: alert, oriented x 3 Skin: dry, normal temperature Psychiatry: depressed, normal judgement/insight Diagnosis, Assessment Plan Free Text DxA P Notes Free text DxA P notes: Assessment: 1.Mechanical fall 2.Traumatic brain injury with subdural hematoma 3. Right AKA pulmonary 2020 4. IMpaired mobility/Impaired gait 5. History of depression 6. Generalized weakness 7. Phantom pain 8. End-stage renal disease on hemodialysis 3 day s a week 9. Anemia 10. History of coronary artery disease, hyperten willy, and hyperlipidemia 05/21/20 Patient's doing well Sitting in a wheelchair Participating in therapy Family visiting at the bedside 05/22/20 Patient participating in therapy daily Reportedly patient is depressed He answered all my questions but seems to be sad May 23, 2020 No leukocytosis, anemia Continue to monitor renal function CT of the right femur without contrast: [id number] amputation changes with complex soft tissue fluid collection at the stump site. There is loss of fatty medullary density at the stump site. Osteomyelit is is not excluded. Correlate with MRI. Continue wound care May 24, 2020 The patient underwent ultrasound-guided aspirati on of superficial fluid collection May 25, 2020 Patient was started on Zoloft and venlafaxine Continue psychiatric medications Supportive psychotherapy for anxiety and depress ion Status post US guided aspiration of right AKA st ump yesterday. Continue hemodialysis and wound care Monitor H H Continue working with rehab Plan of care: -Continue with comprehensive inpatient rehabilit [facility] rehab team -Pain control -Fall precaution -DVT prophylaxis subcu heparin -GI prophylaxis patient currently on Protonix -Pain control as pain management -Seizure precaution patient on Keppra -Continues present medications -Monitor labs -Plan of care discussed with the patient, galina palma's nurse, and Dr. Cavazos. Danny Cavazos 05/27/203: Attestations Physician Attestation Agree w/findings plan: Patient seen and examined on 05/25/2020. I agree with the findings and plan as documented by JOSE Meek. Plan of care coordinat ed with JOSE Meek. Pertinent labs, Imaging, and store sales consultant evaluations review ed. 74-year-old male was admitted to inpatient rehab for comprehensive rehabilitation. He was start ed on Zoloft and venlafaxine. We will continue with psychiatric medications and supportive psychotherapy for anxiety and depression. He underwent US guided aspiration of right AKA stump yesterday. We will continue with hemodialysis and wound care, compr ehensive inpatient rehabilitation was per rehab team, pain control, fall precautions, DVT prophylaxis with subcu heparin, GI prophylaxis w ith Protonix, pain control as pain management, seizure precautions with Keppra , and present medications. We will continue to monitor his labs. We will myriam nue to monitor H H. Electronically Signed by Javier Meek MONOGRAM MAKER on 0 05/27/20 at 0955 Electronically Signed by Danny Keith MD o n 05/28/20 at 0014 RPT #:[id number] END OF REPORT 2020-05-25 12:45:00-00:00 [facility] ([id number] Nephrology Progress Note REPORT#:[id number] REPORT STATUS: Signed DATE:05/25/20 TIME: 1245 PATIENT: DARIEN GROSSMAN UNIT #: [id number] ROOM/BED: [place] [address] : 45 AGE: 74 SEX: M ATTEND: Rosa Curtis MD ADM AUTHOR: Merissa Dillon MD * ALL edits or amendments must be made on the C-Note/computer document * Subjective Chief Complaint: Patient seen and examined. N o new complaints. s/p US guided aspiration of Rt AKA stump yesterday Objective General VS/I O: Vital Signs: Date Time Temp Pulse Resp B/P B/P Pulse O2 O2 F low FiO2 Mean Ox Delivery Rate 05/25 2324 97.7 59 18 132/71 91.5 97 05/26 2007 97.5 71 15 121/68 85.8 96 24 hour I O ending at 0700: 05/26 0700 05/25 1900 Intake Total 240 940 Output Total 2234 Balance -1993 940 Intake, Oral 240 940 Output, 2234 Hemodialysis PATIENT WEIGHT: Weight (lb): 171 Weight (oz): 12.16 Weight (kg): 77.909 Medications Active Meds + DC'd Last 24 Hrs Hydrocodone Bitart/Acetaminophen 1 TAB Q4H PRN P RN PO Sertraline HCl 25 MG BEDTIME PO Albumin Human 12.5 GM ASDIR PRN IV Lidocaine HCl 0.5 ML ASDIR PRN I-DERMAL (CKD) Mannitol 12.5 GM ASDIR PRN IV Sodium Chloride 2,000 ML ASDIR PRN IV Sodium Chloride 10 ML ASDIR PRN IV Sodium Chloride 250 ML ASDIR PRN IV Piperacillin Sod/Tazobactam Sod 3.375 GM Q12H IV Sodium Chloride 100 ML Collagenase 1 APPLIC DAILY TOPICAL Lidocaine 1 PATCH DAILY TOPICAL Amitriptyline HCl 10 MG BEDTIME PO Triamcinolone Acetonide 40 MG PROCEDURE IM (CKD) Aspirin 81 MG DAILY PO Clopidogrel Bisulfate 75 MG DAILY PO Furosemide 40 MG DAILY PO Polyethylene Glycol 17 GM DAILY PO Senna 1 TAB DAILY PO (CKD) Venlafaxine HCl 75 MG DAILY PO Acetaminophen 650 MG Q6H PRN PRN PO Hydralazine HCl 10 MG Q6H PRN PRN PO Ondansetron HCl 4 MG TID PRN PRN SL Heparin Sodium 5,000 UNIT Q8H SUBQ Epoetin Donny-epbx 4,000 UNIT TuThSa@2100 SUBQ Gabapentin 300 MG BEDTIME PO Metoprolol Tartrate 25 MG BID PO Trazodone HCl 150 MG BEDTIME PO Zolpidem Tartrate 5 MG BEDTIME PRN PRN PO Physical Exam General appearance: alert, awake Head/eyes: atraumatic, normocephalic Cardiovascular: regular rate and rhythm, pedal p ulses present Respiratory: clear to auscultation, normal breat h sounds Abdomen: normal bowel sounds, soft Extremities: no edema, Rt AKA Results Findings/Data: Laboratory Tests 05/25 0546 Chemistry Sodium (134 - 147 mEq/L) 136 Potassium (3.4 - 5.0 mEq/L) 3.8 Chloride (100 - 108 mEq/L) 101 Carbon Dioxide (21 - 33 mEq/l) 24 Anion Gap (0 - 20) 15 BUN (7 - 18 mg/dL) 33 H Creatinine (0.6 - 1.3 mg/dL) 4.2 H Glomerular Filtr Rate (70 - 80) 13.9 L Glucose (70 - 110 mg/dL) 79 Calcium (8.0 - 10.5 mg/dL) 8.9 Laboratory Tests 05/25 0546 Hematology WBC (4.5 - 11.0 x10 3/uL) 8.4 RBC (4.00 - 5.60 x10 6/uL) 3.22 L Hgb (12.5 - 16.9 g/dL) 9.2 L Hct (37.5 - 50.7 %) 31.3 L MCV (81.0 - 99.0 fL) 97.2 MCH (27.0 - 33.0 pg) 28.6 MCHC (33.0 - 37.0 g/dL) 29.4 L RDW (11.5 - 14.5 %) 14.5 Plt Count (150 - 400 x10 3/uL) 356 MPV (7.0 - 9.0 fL) 8.6 Neut % (Auto) (56.0 - 77.0 %) 61.1 Lymph % (Auto) (14.0 - 32.0 %) 18.0 Dolores % (Auto) (4.8 - 9.0 %) 10.5 H Eos % (Auto) (0.3 - 3.7 %) 8.8 H Baso % (Auto) (0.0 - 2.0 %) 0.8 Neut # (Auto) (2.0 - 7.6 x10 3/uL) 5.13 Lymph # (Auto) (1.0 - 3.8 x10 3/uL) 1.51 Dolores # (Auto) (0.1 - 0.8 x10 3/uL) 0.88 H Eos # (Auto) (0.0 - 0.2 x10 3/uL) 0.74 H Baso # (Auto) (0.0 - 0.2 x10 3/uL) 0.07 Abs Immat Gran (auto) (0.00 - 0.03 x10 3/uL) 0 .07 H Add Manual Diff NO Immature Gran % (0.0 - 2.0 %) 0.8 Nucleated RBC % (0 - 0 %) 0.0 Nucleated RBCs # (Man) (0.0 - 0.1 x10 3/uL) 0.0 0 Diagnosis, Assessment Plan Hospital course to date: 1. ESRD 2. RT AKA stump infection 3. Hypertension 4. Status post fall and acute SDH 5. Anemia of chronic kidney disease 6. Coronary artery disease Plan -HD MWF. HD in am -Blood pressure currently stable -Renal diet -Hemoglobin better. On Epogen 3 times weekly -Phos has been stable. -Rehab f/u. Free Text A P: 1. ESRD 2. AVF infiltration 3. Hypertension 4. Status post fall and acute SDH 5. Anemia of chronic kidney disease 6. Coronary artery disease Plan -HD MWF. HD today. -Blood pressure currently stable -Renal diet -Hemoglobin better. On Epogen 3 times weekly -Phos has been stable. -Psych f/u. at 0021 RPT #:[id number] END OF REPORT 2020-05-25 10:28:00-00:00 [facility] ([facility]) Pain Management Progress Note REPORT#:[id number] REPORT STATUS: Signed DATE:05/25/20 TIME: 1028 PATIENT: DARIEN GROSSMAN UNIT #: [id number] ROOM/BED: [place] [address] : 45 AGE: 74 SEX: M ATTEND: Rosa Curtis MD ADM AUTHOR: Sohail Wells * ALL edits or amendments must be made on the C-Note/computer document * Subjective Chief complaint: Patient seen and examined. Chart and VIJAYA reyes Patient reports feeling a li ttle depressed today. Otherwise pain and neuropathy are getting better. Patient being seen for Left thigh pain, lateral femoral cutaneous neuralgia, Right AKA pain, Peripheral n europathy, phantom limb pain right lower extremity, Patient states symptoms are manageable with use of current medications. No fever/chills, chest pain, dyspnea, no emesis, pruritus, or hallucinations. 14-point ROS undertaken unremarkable except as n oted. Objective General VS/I O: Vital Signs Date Temp Pulse Resp B/P B/P Mean Pulse Ox FiO2 05/24 36.9-37.2 68-70 16-18 130-136/69-71 89.3- 92.8 95-97 Last Documented: Result Date Time Pulse Ox 97 05/24 1937 B/P 130/69 05/24 1937 B/P Mean 89.3 05/24 1937 O2 Delivery Room air 05/24 1937 Temp 36.9 05/24 1937 Pulse 68 05/24 1937 Resp 16 05/24 1937 24 hour I O ending at 0700: 05/25 0700 05/24 1900 Intake Total 600.00 1190 Output Total 400 Balance 200.00 1190 Intake, IV 120.00 Intake, Oral 480 1190 Number 1 Bowel Movements Number Voids 1 Output, Urine 400 PATIENT WEIGHT: Weight (lb): 171 Weight (oz): 12.16 Weight (kg): 77.909 Medications: Active Meds + DC'd Last 24 Hrs Hydrocodone Bitart/Acetaminophen 1 TAB Q4H PRN P RN PO Sertraline HCl 25 MG BEDTIME PO Albumin Human 12.5 GM ASDIR PRN IV Lidocaine HCl 0.5 ML ASDIR PRN I-DERMAL (CKD) Mannitol 12.5 GM ASDIR PRN IV Sodium Chloride 2,000 ML ASDIR PRN IV Sodium Chloride 10 ML ASDIR PRN IV Sodium Chloride 250 ML ASDIR PRN IV Piperacillin Sod/Tazobactam Sod 3.375 GM Q12H IV Sodium Chloride 100 ML Collagenase 1 APPLIC DAILY TOPICAL Lidocaine 1 PATCH DAILY TOPICAL Amitriptyline HCl 10 MG BEDTIME PO Triamcinolone Acetonide 40 MG PROCEDURE IM (CKD) Aspirin 81 MG DAILY PO Clopidogrel Bisulfate 75 MG DAILY PO Furosemide 40 MG DAILY PO Polyethylene Glycol 17 GM DAILY PO Senna 1 TAB DAILY PO (CKD) Venlafaxine HCl 75 MG DAILY PO Acetaminophen 650 MG Q6H PRN PRN PO Hydralazine HCl 10 MG Q6H PRN PRN PO Ondansetron HCl 4 MG TID PRN PRN SL Heparin Sodium 5,000 UNIT Q8H SUBQ Epoetin Donny-epbx 4,000 UNIT TuThSa@2100 SUBQ Gabapentin 300 MG BEDTIME PO Metoprolol Tartrate 25 MG BID PO Trazodone HCl 150 MG BEDTIME PO Hydrocodone Bitart/Acetaminophen 1 TAB Q4H PRN P RN PO (DC) Zolpidem Tartrate 5 MG BEDTIME PRN PRN PO Physical Exam General appearance: alert, awake, oriented, no a cute distress, pleasant Head/eyes: atraumatic, normocephalic, normal con junctiva/sclera ENT: normal pharynx, moist mucosal membranes Neck: full range of motion, non-tender, supple/n o meningismus Cardiovascular: regular rate rhythm Respiratory: clear to auscultation, no distress Abdomen quadrants LLQ normal bowel sounds, LUQ normal roberto l sounds, RLQ normal bowel sounds, RUQ normal bowel sounds Extremities: moves all, no edema, pedal pulses, right AKA Neuro/CUSTODIAN MANAGER: no motor deficits, no sensory deficit s, CNII-XII grossly intact Skin: dry, intact, no rash Lymphatics: no lymphadenopathy Psychiatry: normal affect, normal mood Results Findings/data: Laboratory Tests: 05/25 0546 Chemistry Sodium (134 - 147 mEq/L) 136 Potassium (3.4 - 5.0 mEq/L) 3.8 Chloride (100 - 108 mEq/L) 101 Carbon Dioxide (21 - 33 mEq/l) 24 Anion Gap (0 - 20) 15 BUN (7 - 18 mg/dL) 33 H Creatinine (0.6 - 1.3 mg/dL) 4.2 H Glomerular Filtr Rate (70 - 80) 13.9 L Glucose (70 - 110 mg/dL) 79 Calcium (8.0 - 10.5 mg/dL) 8.9 Hematology WBC (4.5 - 11.0 x10 3/uL) 8.4 RBC (4.00 - 5.60 x10 6/uL) 3.22 L Hgb (12.5 - 16.9 g/dL) 9.2 L Hct (37.5 - 50.7 %) 31.3 L MCV (81.0 - 99.0 fL) 97.2 MCH (27.0 - 33.0 pg) 28.6 MCHC (33.0 - 37.0 g/dL) 29.4 L RDW (11.5 - 14.5 %) 14.5 Plt Count (150 - 400 x10 3/uL) 356 MPV (7.0 - 9.0 fL) 8.6 Neut % (Auto) (56.0 - 77.0 %) 61.1 Lymph % (Auto) (14.0 - 32.0 %) 18.0 Dolores % (Auto) (4.8 - 9.0 %) 10.5 H Eos % (Auto) (0.3 - 3.7 %) 8.8 H Baso % (Auto) (0.0 - 2.0 %) 0.8 Neut # (Auto) (2.0 - 7.6 x10 3/uL) 5.13 Lymph # (Auto) (1.0 - 3.8 x10 3/uL) 1.51 Dolores # (Auto) (0.1 - 0.8 x10 3/uL) 0.88 H Eos # (Auto) (0.0 - 0.2 x10 3/uL) 0.74 H Baso # (Auto) (0.0 - 0.2 x10 3/uL) 0.07 Abs Immat Gran (auto) (0.00 - 0.03 x10 3/uL) 0. 07 H Add Manual Diff NO Immature Gran % (0.0 - 2.0 %) 0.8 Nucleated RBC % (0 - 0 %) 0.0 Nucleated RBCs # (Man) (0.0 - 0.1 x10 3/uL) 0.0 0 Microbiology: Date/Time Procedure - Status Source Growth 05/24 152 Body Fluid Culture - ORD ASPIRATE 05/24 152 Anaerobic Culture - ORD ASPIRATE 05/24 152 Gram Stain - ORD ASPIRATE Recent Impressions: ULTRASOUND - USG NDL PLACEMENT (Bxg/Asp) 05/24 1 434 Report Impression - Status: SIGNED Entered: 05/24/20201514 IMPRESSION: 1. Technically successful ultrasound-guided aspi ration of a right knee stump collection. Impression By: [email or web address] - Paloma Arvizu D.O. Diagnosis, Assessment Plan Free text A P: A/P: Patient is a 74 year old male presenting with: Past medical history: Subdural hematoma, CAD, en d-stage renal disease on HD, hypertension, hyperlipidemia, septic art hritis of prosthesis of previous right TKA, depression Past surgical history: Right TKR, right AKA, cor onary stents Social history: Negative for alcohol, tobacco, i llicit drug use Family history: Not relevant Allergies: Penicillin, iodine Left thigh pain, lateral femoral cutaneous neura lgia -We offered to perform a left lateral femoral cu taneous nerve block to see if this helps with the pain. Patient declined -05/24-decrease Otis 10/325 to Otis 7.5/325 james ry 4 as needed -Lidoderm patch to left thigh daily -Otis 7.5/325 mg oral every 4 hours as needed f or pain -manageable Right AKA discomfort -05/23/2020-CT lower extremity - Above th e knee amputation changes with complex soft tissue fluid collection at the stum p site. There is loss of fatty medullary density at the stump site. Osteomyelitis is not excluded. C orrelate with MRI as clinically indicated. -IV antibiotics , appreciate infectious disease input -Pain medications as outlined above Peripheral neuropathy, phantom limb pain right l ower extremity -Gabapentin 300 mg oral at bedtime -amitriptyline 10 mg oral at bedtime -stable Antalgic/impaired gait -PT/OT -Gait training, improve endurance and strength -Transfer training -PMR following Falls -Fall precautions End-stage renal disease on hemodialysis -Nephrology following Subdural hematoma -Monitor mental status with opioids and other se dative medications Depression -monitoring Constipation -Monitor closely while patient is using opioid n arcotics -MiraLAX 17 g p.o. daily -Senna 1 tab p.o. daily All pertinent diagnostics/labs from the last 24 hours and during the course of the admission were reviewed. Plan discussed with the patient and the nurse. A ll questions were answered. Patient will be monitored for deleteriou s side effects associated with opioids and sedative medications. Me dications will be adjusted further clinical course. Risks versus benefits of opioid medications were reviewed to include, but not limited to respiratory depression, accid ental overdose, altered mental status, sudden , constipation which could result in bowel obstruction, seizures, withdrawal, dependency/addiction, risk for falls . Goals: Daily pain control. Case discussed with Dr Lofton whom agrees. 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: Total Prescriptions 28 Total Private Pay 0 Total Prescribers 4 Total Pharmacies 1 05/06/2020 1 05/06/2020 HYDROCODONE-ACETAMIN 10- 325 MG 30.0 7 [facility] SPA [id number] [facility] ([id number]) 0 42.86 MME Comm Ins [place] 04/20/2020 1 12/24/2019 ZOLPIDEM TARTRATE 10 MG TABLET 30.0 30 PE LAT [id number] [facility] ([id number]) 4 Comm Ins [place] 03/21/2020 1 12/24/2019 ZOLPIDEM TARTRATE 10 MG TABLET 30.0 30 PE LAT [id number] [facility] ([id number]) 3 Comm Ins [place] 02/20/2020 1 12/24/2019 ZOLPIDEM TARTRATE 10 MG TABLET 30.0 30 PE LAT [id number] [facility] ([id number]) 2 Comm Ins [place] 01/21/2020 1 12/24/2019 ZOLPIDEM TARTRATE 10 MG TABLET 30.0 30 PE LAT [id number] [facility] ([id number]) 1 Comm Ins [place] 12/24/2019 1 12/24/2019 ZOLPIDEM TARTRATE 10 MG TABLET 30.0 30 PE LAT [id number] [facility] ([id number]) 0 Comm Ins [place] 11/25/2019 1 07/07/2019 ZOLPIDEM TARTRATE 10 MG TABLET 30.0 30 PE LAT [id number] [facility] ([id number]) 5 Comm Ins [place] [id number] ([id number]) [address] [place] [id number] at 1236 RPT #:[id number] END OF REPORT 2020-05-25 10:28:00-00:00 [facility] ([facility]) Pain Management Progress Note REPORT#:[id number] REPORT STATUS: Signed DATE:05/25/20 TIME: 1028 PATIENT: DARIEN GROSSMAN UNIT #: [id number] ROOM/BED: [place] [address] : 45 AGE: 74 SEX: M ATTEND: Rosa Curtis MD ADM AUTHOR: Sohail Wells * ALL edits or amendments must be made on the C-Note/Above All Software document * Subjective Chief complaint: Patient seen and examined. Chart and MAR reviewlawrence dMarva Patient reports feeling a li ttle depressed today. Otherwise pain and neuropathy are getting better. Patient being seen for Left thigh pain, lateral femoral cutaneous neuralgia, Right AKA pain, Peripheral n europathy, phantom limb pain right lower extremity, Patient states symptoms are manageable with use of current medications. No fever/chills, chest pain, dyspnea, no emesis, pruritus, or hallucinations. 14-point ROS undertaken unremarkable except as n oted. Objective General VS/I O: Vital Signs Date Temp Pulse Resp B/P B/P Mean Pulse Ox FiO2 05/24 36.9-37.2 68-70 16-18 130-136/69-71 89.3- 92.8 95-97 Last Documented: Result Date Time Pulse Ox 97 05/24 1937 B/P 130/69 05/24 1937 B/P Mean 89.3 05/24 1937 O2 Delivery Room air 05/24 1937 Temp 36.9 05/24 1937 Pulse 68 05/24 1937 Resp 16 05/24 1937 24 hour I O ending at 0700: 05/25 0700 04/13 1900 Intake Total 600.00 1190 Output Total 400 Balance 200.00 1190 Intake, IV 120.00 Intake, Oral 480 1190 Number 1 Bowel Movements Number Voids 1 Output, Urine 400 PATIENT WEIGHT: Weight (lb): 171 Weight (oz): 12.16 Weight (kg): 77.909 Medications: Active Meds + DC'd Last 24 Hrs Hydrocodone Bitart/Acetaminophen 1 TAB Q4H PRN P RN PO Sertraline HCl 25 MG BEDTIME PO Albumin Human 12.5 GM ASDIR PRN IV Lidocaine HCl 0.5 ML ASDIR PRN I-DERMAL (CKD) Mannitol 12.5 GM ASDIR PRN IV Sodium Chloride 2,000 ML ASDIR PRN IV Sodium Chloride 10 ML ASDIR PRN IV Sodium Chloride 250 ML ASDIR PRN IV Piperacillin Sod/Tazobactam Sod 3.375 GM Q12H IV Sodium Chloride 100 ML Collagenase 1 APPLIC DAILY TOPICAL Lidocaine 1 PATCH DAILY TOPICAL Amitriptyline HCl 10 MG BEDTIME PO Triamcinolone Acetonide 40 MG PROCEDURE IM (CKD) Aspirin 81 MG DAILY PO Clopidogrel Bisulfate 75 MG DAILY PO Furosemide 40 MG DAILY PO Polyethylene Glycol 17 GM DAILY PO Senna 1 TAB DAILY PO (CKD) Venlafaxine HCl 75 MG DAILY PO Acetaminophen 650 MG Q6H PRN PRN PO Hydralazine HCl 10 MG Q6H PRN PRN PO Ondansetron HCl 4 MG TID PRN PRN SL Heparin Sodium 5,000 UNIT Q8H SUBQ Epoetin Donny-epbx 4,000 UNIT TuThSa@2100 SUBQ Gabapentin 300 MG BEDTIME PO Metoprolol Tartrate 25 MG BID PO Trazodone HCl 150 MG BEDTIME PO Hydrocodone Bitart/Acetaminophen 1 TAB Q4H PRN P RN PO (DC) Zolpidem Tartrate 5 MG BEDTIME PRN PRN PO Physical Exam General appearance: alert, awake, oriented, no a cute distress, pleasant Head/eyes: atraumatic, normocephalic, normal con junctiva/sclera ENT: normal pharynx, moist mucosal membranes Neck: full range of motion, non-tender, supple/n o meningismus Cardiovascular: regular rate rhythm Respiratory: clear to auscultation, no distress Abdomen quadrants LLQ normal bowel sounds, LUQ normal roberto l sounds, RLQ normal bowel sounds, RUQ normal bowel sounds Extremities: moves all, no edema, pedal pulses, right AKA Neuro/CUSTODIAN MANAGER: no motor deficits, no sensory deficit s, CNII-XII grossly intact Skin: dry, intact, no rash Lymphatics: no lymphadenopathy Psychiatry: normal affect, normal mood Results Findings/data: Laboratory Tests: 05/25 0546 Chemistry Sodium (134 - 147 mEq/L) 136 Potassium (3.4 - 5.0 mEq/L) 3.8 Chloride (100 - 108 mEq/L) 101 Carbon Dioxide (21 - 33 mEq/l) 24 Anion Gap (0 - 20) 15 BUN (7 - 18 mg/dL) 33 H Creatinine (0.6 - 1.3 mg/dL) 4.2 H Glomerular Filtr Rate (70 - 80) 13.9 L Glucose (70 - 110 mg/dL) 79 Calcium (8.0 - 10.5 mg/dL) 8.9 Hematology WBC (4.5 - 11.0 x10 3/uL) 8.4 RBC (4.00 - 5.60 x10 6/uL) 3.22 L Hgb (12.5 - 16.9 g/dL) 9.2 L Hct (37.5 - 50.7 %) 31.3 L MCV (81.0 - 99.0 fL) 97.2 MCH (27.0 - 33.0 pg) 28.6 MCHC (33.0 - 37.0 g/dL) 29.4 L RDW (11.5 - 14.5 %) 14.5 Plt Count (150 - 400 x10 3/uL) 356 MPV (7.0 - 9.0 fL) 8.6 Neut % (Auto) (56.0 - 77.0 %) 61.1 Lymph % (Auto) (14.0 - 32.0 %) 18.0 Dolores % (Auto) (4.8 - 9.0 %) 10.5 H Eos % (Auto) (0.3 - 3.7 %) 8.8 H Baso % (Auto) (0.0 - 2.0 %) 0.8 Neut # (Auto) (2.0 - 7.6 x10 3/uL) 5.13 Lymph # (Auto) (1.0 - 3.8 x10 3/uL) 1.51 Dolores # (Auto) (0.1 - 0.8 x10 3/uL) 0.88 H Eos # (Auto) (0.0 - 0.2 x10 3/uL) 0.74 H Baso # (Auto) (0.0 - 0.2 x10 3/uL) 0.07 Abs Immat Gran (auto) (0.00 - 0.03 x10 3/uL) 0. 07 H Add Manual Diff NO Immature Gran % (0.0 - 2.0 %) 0.8 Nucleated RBC % (0 - 0 %) 0.0 Nucleated RBCs # (Man) (0.0 - 0.1 x10 3/uL) 0.0 0 Microbiology: Date/Time Procedure - Status Source Growth 05/24 1522 Body Fluid Culture - ORD ASPIRATE 05/24 152 Anaerobic Culture - ORD ASPIRATE 05/24 152 Gram Stain - ORD ASPIRATE Recent Impressions: ULTRASOUND - USG NDL PLACEMENT (Bxg/Asp) 05/24 1 434 Report Impression - Status: SIGNED Entered: 05/24/2020 1515 IMPRESSION: 1. Technically successful ultrasound-guided aspi ration of a right knee stump collection. Impression By: [email or web address] - Paloma Arvizu D.O. Diagnosis, Assessment Plan Free text A P: A/P: Patient is a 74 year old male presenting with: Past medical history: Subdural hematoma, CAD, en d-stage renal disease on HD, hypertension, hyperlipidemia, septic art hritis of prosthesis of previous right TKA, depression Past surgical history: Right TKR, right AKA, cor onary stents Social history: Negative for alcohol, tobacco, i llicit drug use Family history: Not relevant Allergies: Penicillin, iodine Left thigh pain, lateral femoral cutaneous neura lgia -We offered to perform a left lateral femoral cu taneous nerve block to see if this helps with the pain. Patient declined -05/24-decrease Otis 10/325 to Otis 7.5/325 james ry 4 as needed -Lidoderm patch to left thigh daily -Otis 7.5/325 mg oral every 4 hours as needed f or pain -manageable Right AKA discomfort -05/23/2020-CT lower extremity - Above th e knee amputation changes with complex soft tissue fluid collection at the stum p site. There is loss of fatty medullary density at the stump site. Osteomyelitis is not excluded. C orrelate with MRI as clinically indicated. -IV antibiotics , appreciate infectious disease input -Pain medications as outlined above Peripheral neuropathy, phantom limb pain right l ower extremity -Gabapentin 300 mg oral at bedtime -amitriptyline 10 mg oral at bedtime -stable Antalgic/impaired gait -PT/OT -Gait training, improve endurance and strength -Transfer training -PMR following Falls -Fall precautions End-stage renal disease on hemodialysis -Nephrology following Subdural hematoma -Monitor mental status with opioids and other se dative medications Depression -monitoring Constipation -Monitor closely while patient is using opioid n arcotics -MiraLAX 17 g p.o. daily -Senna 1 tab p.o. daily All pertinent diagnostics/labs from the last 24 hours and during the course of the admission were reviewed. Plan discussed with the patient and the nurse. A ll questions were answered. Patient will be monitored for deleteriou s side effects associated with opioids and sedative medications. Me dications will be adjusted further clinical course. Risks versus benefits of opioid medications were reviewed to include, but not limited to respiratory depression, accid ental overdose, altered mental status, sudden , constipation which could result in bowel obstruction, seizures, withdrawal, dependency/addiction, risk for falls . Goals: Daily pain control. Case discussed with Dr Lofton whom agrees. 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: Total Prescriptions 28 Total Private Pay 0 Total Prescribers 4 Total Pharmacies 1 05/06/2020 1 05/06/2020 HYDROCODONE-ACETAMIN 10- 325 MG 30.0 7 [facility] SPA [id number] [facility] (1602) 0 42.86 MME Comm Ins [place] 04/20/2020 1 12/24/2019 ZOLPIDEM TARTRATE 10 MG TABLET 30.0 30 PE LAT [id number] [facility] (1602) 4 Comm Ins [place] 03/21/2020 1 12/24/2019 ZOLPIDEM TARTRATE 10 MG TABLET 30.0 30 PE LAT [id number] [facility] (1602) 3 Comm Ins [place] 02/20/2020 1 12/24/2019 ZOLPIDEM TARTRATE 10 MG TABLET 30.0 30 PE LAT [id number] [facility] (1602) 2 Comm Ins [place] 01/21/2020 1 12/24/2019 ZOLPIDEM TARTRATE 10 MG TABLET 30.0 30 PE LAT [id number] [facility] (1602) 1 [place] Ins [place] 12/24/2019 1 12/24/2019 ZOLPIDEM TARTRATE 10 MG TABLET 30.0 30 PE LAT [id number] [facility] (1602) 0 Comm Ins [place] 11/25/2019 1 07/07/2019 ZOLPIDEM TARTRATE 10 MG TABLET 30.0 30 PE LAT [id number] [facility] (1602) 5 Comm Ins [place] [id number] ([id number]) [address] [place] [address] at 1236 Electronically Signed by Herman Lofton MD on 0 05/26/20 at 5542 RPT #:[id number] END OF REPORT 2020-05-25 10:21:00-00:00 [facility] ([facility]) Infectious Dis. Progress Note REPORT#:[id number] REPORT STATUS: Signed DATE:05/25/20 TIME: 1021 PATIENT: DARIEN GROSSMAN UNIT #: [id number] ROOM/BED: [place] [address] : 45 AGE: 74 SEX: M ATTEND: Sekou Curtis MD ADM AUTHOR: Jonathan Sheikh NP * ALL edits or amendments must be made on the C-Note/computer document * Subjective Chief Complaint: F/U Right AKA cellulitis HPI: Patient is a 74-year-old male with past medical history of end-stage renal disease on HD, hypertension, hyperlipide liseth who underwent right kvbfi-gmd-mokw amputation in March 2020. He was admitted to [facility] after sustaining a fall resulting in a subdural hematoma. He was transferred to rehab on 5 . He was noted to have small amount of gamalhugh monsalve to his right AKA stump and hence ID was consulted to assist with antibi otics and plan of care. Patient reports: Yes: feeling better. No: com plaints, abdominal pain, back pain, bowel movement, burning with urination, cough, diarrhea, fever, headache, nausea, pain, pain controlled, shortness of breath, vomiting, wheez ing. Nursing reports: No: complaints. Review of Systems All systems rev neg: except as marked Objective General VS/I O: Last Documented: Result Date Time Pulse Ox 97 05/24 1937 B/P 130/69 05/24 1937 B/P Mean 89.3 05/24 1937 O2 Delivery Room air 05/24 1937 Temp 98.4 05/24 1937 Pulse 68 05/24 1937 Resp 16 05/24 1937 Vital Signs Date Temp Pulse Resp B/P B/P Mean Pulse Ox FiO2 05/24 98.4 68 16 130/69 89.3 97 24 hour I O ending at 0700: 05/25 0700 05/24 1900 Intake Total 600.00 1190 Output Total 400 Balance 200.00 1190 Intake, IV 120.00 Intake, Oral 480 1190 Number 1 Bowel Movements Number Voids 1 Output, Urine 400 PATIENT WEIGHT: Weight (lb): 171 Weight (oz): 12.16 Weight (kg): 77.909 Physical Exam General appearance: alert, awake Wound/incision: Location: Right AKA stump-dressing C/D/I Head/Eyes: atraumatic, normal conjunctiva/sclera ENT: moist mucosal membranes Neck: no JVD Cardiovascular: normal heart sounds Respiratory: clear to auscultation, aerating wel l, symmetric expansion Abdomen: non-tender, normal bowel sounds Neuro/CUSTODIAN MANAGER: alert, oriented X 3 Results Findings/Data: Laboratory Tests 05/25 0546 Chemistry Sodium (134 - 147 mEq/L) 136 Potassium (3.4 - 5.0 mEq/L) 3.8 Chloride (100 - 108 mEq/L) 101 Carbon Dioxide (21 - 33 mEq/l) 24 Anion Gap (0 - 20) 15 BUN (7 - 18 mg/dL) 33 H Creatinine (0.6 - 1.3 mg/dL) 4.2 H Glomerular Filtr Rate (70 - 80) 13.9 L Glucose (70 - 110 mg/dL) 79 Calcium (8.0 - 10.5 mg/dL) 8.9 Laboratory Tests 05/25 0546 Hematology WBC (4.5 - 11.0 x10 3/uL) 8.4 RBC (4.00 - 5.60 x10 6/uL) 3.22 L Hgb (12.5 - 16.9 g/dL) 9.2 L Hct (37.5 - 50.7 %) 31.3 L MCV (81.0 - 99.0 fL) 97.2 MCH (27.0 - 33.0 pg) 28.6 MCHC (33.0 - 37.0 g/dL) 29.4 L RDW (11.5 - 14.5 %) 14.5 Plt Count (150 - 400 x10 3/uL) 356 MPV (7.0 - 9.0 fL) 8.6 Neut % (Auto) (56.0 - 77.0 %) 61.1 Lymph % (Auto) (14.0 - 32.0 %) 18.0 Dolores % (Auto) (4.8 - 9.0 %) 10.5 H Eos % (Auto) (0.3 - 3.7 %) 8.8 H Baso % (Auto) (0.0 - 2.0 %) 0.8 Neut # (Auto) (2.0 - 7.6 x10 3/uL) 5.13 Lymph # (Auto) (1.0 - 3.8 x10 3/uL) 1.51 Dolores # (Auto) (0.1 - 0.8 x10 3/uL) 0.88 H Eos # (Auto) (0.0 - 0.2 x10 3/uL) 0.74 H Baso # (Auto) (0.0 - 0.2 x10 3/uL) 0.07 Abs Immat Gran (auto) (0.00 - 0.03 x10 3/uL) 0. 07 H Add Manual Diff NO Immature Gran % (0.0 - 2.0 %) 0.8 Nucleated RBC % (0 - 0 %) 0.0 Nucleated RBCs # (Man) (0.0 - 0.1 x10 3/uL) 0.0 0 Results: labs reviewed, vital signs stable, curr ent med profile rev'd Diagnosis, Assessment Plan Free Text A P: 1. Right AKA stump cellulitis --R/O fluid collection, check CT extremity --Superficial cx: Pseudomonas (R-Merrem), and Co NS --ESR/CRP significant elevated --CT (+) [id number] loculated f luid collection; S/P diagnostic aspiration by IR , GS (-), CX (-) 2. S/P Mechanical fall with SDH 3. ESRD on HD 4. HTN 5. HLD On Zosyn started 05/23 (Day 2) Plan discussed with: patient, nurse Electronically Signed by Jonathan Sheikh NP on at 1732 RPT #:[id number] END OF REPORT 2020-05-25 10:21:00-00:00 [facility] ([facility]) Infectious Dis. Progress Note REPORT#:[id number] REPORT STATUS: Signed DATE:05/25/20 TIME: 1021 PATIENT: DARIEN GROSSMAN UNIT #: [id number] ROOM/BED: [place] [address] : 45 AGE: 74 SEX: M ATTEND: Rosa Curtis MD ADM AUTHOR: Jonathan Sheikh NP * ALL edits or amendments must be made on the C-Note/computer document * Subjective Chief Complaint: F/U Right AKA cellulitis HPI: Patient is a 74-year-old male with past medical history of end-stage renal disease on HD, hypertension, hyperlipide liseth who underwent right vjqkw-fcs-fxao amputation in March 2020. He was admitted to [facility] after sustaining a fall resulting in a subdural hematoma. He was transferred to rehab on . He was noted to have small amount of gamal inage to his right AKA stump and hence ID was consulted to assist with antibi otics and plan of care. Patient reports: Yes: feeling better. No: com plaints, abdominal pain, back pain, bowel movement, burning with urination, cough, diarrhea, fever, headache, nausea, pain, pain controlled, shortness of breath, vomiting, wheez ing. Nursing reports: No: complaints. Review of Systems All systems rev neg: except as marked Objective General VS/I O: Last Documented: Result Date Time Pulse Ox 97 05/24 1937 B/P 130/69 05/24 1937 B/P Mean 89.3 05/24 1937 O2 Delivery Room air 05/24 1937 Temp 98.4 05/24 1937 Pulse 68 05/24 1937 Resp 16 05/24 1937 Vital Signs Date Temp Pulse Resp B/P B/P Mean Pulse Ox FiO2 05/24 98.4 68 16 130/69 89.3 97 24 hour I O ending at 0700: 05/25 0700 05/24 1900 Intake Total 600.00 1190 Output Total 400 Balance 200.00 1190 Intake, IV 120.00 Intake, Oral 480 1190 Number 1 Bowel Movements Number Voids 1 Output, Urine 400 PATIENT WEIGHT: Weight (lb): 171 Weight (oz): 12.16 Weight (kg): 77.909 Physical Exam General appearance: alert, awake Wound/incision: Location: Right AKA stump-dressing C/D/I Head/Eyes: atraumatic, normal conjunctiva/sclera ENT: moist mucosal membranes Neck: no JVD Cardiovascular: normal heart sounds Respiratory: clear to auscultation, aerating wel l, symmetric expansion Abdomen: non-tender, normal bowel sounds Neuro/CUSTODIAN MANAGER: alert, oriented X 3 Results Findings/Data: Laboratory Tests 05/25 0546 Chemistry Sodium (134 - 147 mEq/L) 136 Potassium (3.4 - 5.0 mEq/L) 3.8 Chloride (100 - 108 mEq/L) 101 Carbon Dioxide (21 - 33 mEq/l) 24 Anion Gap (0 - 20) 15 BUN (7 - 18 mg/dL) 33 H Creatinine (0.6 - 1.3 mg/dL) 4.2 H Glomerular Filtr Rate (70 - 80) 13.9 L Glucose (70 - 110 mg/dL) 79 Calcium (8.0 - 10.5 mg/dL) 8.9 Laboratory Tests 05/25 0546 Hematology WBC (4.5 - 11.0 x10 3/uL) 8.4 RBC (4.00 - 5.60 x10 6/uL) 3.22 L Hgb (12.5 - 16.9 g/dL) 9.2 L Hct (37.5 - 50.7 %) 31.3 L MCV (81.0 - 99.0 fL) 97.2 MCH (27.0 - 33.0 pg) 28.6 MCHC (33.0 - 37.0 g/dL) 29.4 L RDW (11.5 - 14.5 %) 14.5 Plt Count (150 - 400 x10 3/uL) 356 MPV (7.0 - 9.0 fL) 8.6 Neut % (Auto) (56.0 - 77.0 %) 61.1 Lymph % (Auto) (14.0 - 32.0 %) 18.0 Dolores % (Auto) (4.8 - 9.0 %) 10.5 H Eos % (Auto) (0.3 - 3.7 %) 8.8 H Baso % (Auto) (0.0 - 2.0 %) 0.8 Neut # (Auto) (2.0 - 7.6 x10 3/uL) 5.13 Lymph # (Auto) (1.0 - 3.8 x10 3/uL) 1.51 Dolores # (Auto) (0.1 - 0.8 x10 3/uL) 0.88 H Eos # (Auto) (0.0 - 0.2 x10 3/uL) 0.74 H Baso # (Auto) (0.0 - 0.2 x10 3/uL) 0.07 Abs Immat Gran (auto) (0.00 - 0.03 x10 3/uL) 0 .07 H Add Manual Diff NO Immature Gran % (0.0 - 2.0 %) 0.8 Nucleated RBC % (0 - 0 %) 0.0 Nucleated RBCs # (Man) (0.0 - 0.1 x10 3/uL) 0.0 0 Results: labs reviewed, vital signs stable, curr ent med profile rev'd Diagnosis, Assessment Plan Free Text A P: 1. Right AKA stump cellulitis --R/O fluid collection, check CT extremity --Superficial cx: Pseudomonas (R-Merrem), and Co NS --ESR/CRP significant elevated --CT (+) [id number] loculated f luid collection; S/P diagnostic aspiration by IR , GS (-), CX (-) 2. S/P Mechanical fall with SDH 3. ESRD on HD 4. HTN 5. HLD On Zosyn started 05/23 (Day 2) Plan discussed with: patient, nurse Electronically Signed by Jonathan Sheikh NP on at 2437 at 0691 RPT #:[id number] END OF REPORT 2020-05-25 10:19:00-00:00 [facility] ([facility]) Wound Care Progress Note REPORT#:[id number] REPORT STATUS: Signed DATE:05/25/20 TIME: 1019 PATIENT: DARIEN GROSSMAN UNIT #: [id number] ROOM/BED: [place] [address] : 45 AGE: 74 SEX: M ATTEND: Rosa Curtis MD ADM AUTHOR: Shaila Gilbert * ALL edits or amendments must be made on the C-Note/computer document * Subjective Chief Complaint: FU R AKA wounds Objective General Medications: Active Meds + DC'd Last 24 Hrs Hydrocodone Bitart/Acetaminophen 1 TAB Q4H PRN P RN PO Sertraline HCl 25 MG BEDTIME PO Albumin Human 12.5 GM ASDIR PRN IV Lidocaine HCl 0.5 ML ASDIR PRN I-DERMAL (CKD) Mannitol 12.5 GM ASDIR PRN IV Sodium Chloride 2,000 ML ASDIR PRN IV Sodium Chloride 10 ML ASDIR PRN IV Sodium Chloride 250 ML ASDIR PRN IV Piperacillin Sod/Tazobactam Sod 3.375 GM Q12H IV Sodium Chloride 100 ML Collagenase 1 APPLIC DAILY TOPICAL Lidocaine 1 PATCH DAILY TOPICAL Amitriptyline HCl 10 MG BEDTIME PO Triamcinolone Acetonide 40 MG PROCEDURE IM (CKD) Aspirin 81 MG DAILY PO Clopidogrel Bisulfate 75 MG DAILY PO Furosemide 40 MG DAILY PO Polyethylene Glycol 17 GM DAILY PO Senna 1 TAB DAILY PO (CKD) Venlafaxine HCl 75 MG DAILY PO Acetaminophen 650 MG Q6H PRN PRN PO Hydralazine HCl 10 MG Q6H PRN PRN PO Ondansetron HCl 4 MG TID PRN PRN SL Heparin Sodium 5,000 UNIT Q8H SUBQ Epoetin Donny-epbx 4,000 UNIT TuThSa@2100 SUBQ Gabapentin 300 MG BEDTIME PO Metoprolol Tartrate 25 MG BID PO Trazodone HCl 150 MG BEDTIME PO Hydrocodone Bitart/Acetaminophen 1 TAB Q4H PRN P RN PO (DC) Zolpidem Tartrate 5 MG BEDTIME PRN PRN PO Nutrition assessment: The data set between the solid lines has been im ported from the dietitian's assessment. Any exceptions have been noted under Provider comments. BMI Calculated: 25.4 Nutrition related diagnosis: Nutrition diagnosis details: Nutrition problem: Inadequate oral intake Nutrition etiology: Decreased/poor appetite, Dis likes hospital food Nutrition signs and symptoms: Consuming 50-75% f or 4 days Nutrition prescription: 1. C ontinue renal diet 2. Add Nepro 1x/day 3. Encourage food ordering and monitor fo od intake 3. [place] food preferences within diet and encourage oral intake >75% Dietitian name: Haley Shannon, Development Editor Assessment completed: 05/20/20 Provider comments on imported dietitian assessme nt: Physical Exam General appearance: awake Skin: R AKA wound dehiscence on both medial late ral ends of stump ( abt 0.5x0.5x0.2 cm) w/ 50% slough. MInimal erythema @ medial aspect. Results Findings/Data: Laboratory Tests: 05/25 0546 Chemistry Sodium (134 - 147 mEq/L) 136 Potassium (3.4 - 5.0 mEq/L) 3.8 Chloride (100 - 108 mEq/L) 101 Carbon Dioxide (21 - 33 mEq/l) 24 Anion Gap (0 - 20) 15 BUN (7 - 18 mg/dL) 33 H Creatinine (0.6 - 1.3 mg/dL) 4.2 H Glomerular Filtr Rate (70 - 80) 13.9 L Glucose (70 - 110 mg/dL) 79 Calcium (8.0 - 10.5 mg/dL) 8.9 Hematology WBC (4.5 - 11.0 x10 3/uL) 8.4 RBC (4.00 - 5.60 x10 6/uL) 3.22 L Hgb (12.5 - 16.9 g/dL) 9.2 L Hct (37.5 - 50.7 %) 31.3 L MCV (81.0 - 99.0 fL) 97.2 MCH (27.0 - 33.0 pg) 28.6 MCHC (33.0 - 37.0 g/dL) 29.4 L RDW (11.5 - 14.5 %) 14.5 Plt Count (150 - 400 x10 3/uL) 356 MPV (7.0 - 9.0 fL) 8.6 Neut % (Auto) (56.0 - 77.0 %) 61.1 Lymph % (Auto) (14.0 - 32.0 %) 18.0 Dolores % (Auto) (4.8 - 9.0 %) 10.5 H Eos % (Auto) (0.3 - 3.7 %) 8.8 H Baso % (Auto) (0.0 - 2.0 %) 0.8 Neut # (Auto) (2.0 - 7.6 x10 3/uL) 5.13 Lymph # (Auto) (1.0 - 3.8 x10 3/uL) 1.51 Dolores # (Auto) (0.1 - 0.8 x10 3/uL) 0.88 H Eos # (Auto) (0.0 - 0.2 x10 3/uL) 0.74 H Baso # (Auto) (0.0 - 0.2 x10 3/uL) 0.07 Abs Immat Gran (auto) (0.00 - 0.03 x10 3/uL) 0. 07 H Add Manual Diff NO Immature Gran % (0.0 - 2.0 %) 0.8 Nucleated RBC % (0 - 0 %) 0.0 Nucleated RBCs # (Man) (0.0 - 0.1 x10 3/uL) 0.0 0 Microbiology: Date/Time Procedure - Status Source Growth 05/24 1522 Body Fluid Culture - ORD ASPIRATE 05/24 1522 Anaerobic Culture - ORD ASPIRATE 05/24 1522 Gram Stain - ORD ASPIRATE 05/24 1146 Body Fluid Culture - RES ASPIRATE 05/24 1146 Anaerobic Culture - RES ASPIRATE 05/24 1146 Gram Stain - RES ASPIRATE Recent Impressions: ULTRASOUND - USG NDL PLACEMENT (Bxg/Asp) 05/24 1 434 Report Impression - Status: SIGNED Entered: 05/24/2020 8110 IMPRESSION: 1. Technically successful ultrasound-guided aspi ration of a right knee stump collection. Impression By: [email or web address] - Paloma Arvizu D.O. Diagnosis, Assessment Plan Free Text A P: Right AKA stump cellulitis, w superficial wound dehiscence- ( sp aspiration culture by IR of loculated f luid collection ) ; Superficial cx: Pseudomonas (R- Merrem), and CoN. On IV Zosyn per ID. Santyl with xeroform to dehisced sites , cover w ith foam dressing daily. May start WVAC to sites once less than 20% slough. [ x] Optimize Nutrition and Glycemic Control [ x] Pressure relieving inte rventions (Low Air Mattress, Prevalon boot, Turn q2h ) [ x] Nursing to implement impaired skin integrit y care plan as per skin care protocol Coordinattion of care D/W [ ] Other MD's [ x ] P atient [ ] Family [ ] Nursing [ ] Case Management at 2101 RPT #:[id number] END OF REPORT 2020-05-25 07:58:00-00:00 [facility]) Clinical Note REPORT#:[id number] REPORT STATUS: Signed DATE:05/25/20 TIME: 757 PATIENT: DARIEN GROSSMAN UNIT #: [id number] ROOM/BED: [place] [address] : 45 AGE: 74 SEX: M ATTEND: Rosa Curtis MD ADM AUTHOR: Danny Keith MD * ALL edits or amendments must be made on the C-Note/computer document * Clinical Note Note: 74-year-old male 1. Fall 2. Subdural hematoma 3. TBI (traumatic brain injury) 4. History of right above knee amputation (Onse t: 04/03/20) 5. ESRD on dialysis 6. History of coronary artery disease 7. History of coronary angioplasty with inserti on of stent 8. HLD (hyperlipidemia) 9. Anemia of chronic disease 10. Frequent falls 11. Hypoalbuminemia 12. Leukocytosis 13. Limb pain 14. Impaired functional mobility, balance, gait , and endurance 05/24: Underwent ultrasound guided aspiration of superficial fluid collection and 15 cc of bloody fluid removed. Continue with pain control and IV antibiotics. Continue with renal diet. Blood pre ssure is stable. 05/25: Underwent US guided aspiration of right AK A stump yesterday. Doing well today. Nephrology evaluation noted and continue with hemodialysis. Continue with rehab care. Wound care evaluation noted and continue with wound care. Plan We will continue with telemetry, BP control, gly cemic control, pain control, electrolyte control, DVT/GI prophylaxis, repeat labs. PT/OT/ST. Wound care. Electronically Signed by Danny Keith MD 06/01/20 at 1318 RPT #:[id number] END OF REPORT 2020-05-25 06:14:00-00:00 [facility] Re[facility] Progress Note REPORT#:[id number] REPORT STATUS: Signed DATE:05/25/20 TIME: 613 PATIENT: DARIEN GROSSMAN UNIT #: [id number] ROOM/BED: [place] [address] : 45 AGE: 74 SEX: M ATTEND: Rosa Curtis MD ADM AUTHOR: Clint Dunaway * ALL edits or amendments must be made on the C-Note/computer document * Subjective Chief complaint: Rehab follow-up Generalized weakness Better affect today. Still a bit down Slept well Denies PATEL/N/V/D 14 systems reviewed and neg. except that above. Objective General VS: Vital Signs: Date Time Temp Pulse Resp B/P B/P Pulse O2 O2 F low FiO2 Mean Ox Delivery Rate 05/24 1937 98.4 68 16 130/69 89.3 97 Room air 05/24 1536 99.0 70 18 136/71 92.8 95 Room air 05/24 0724 99.0 60 18 134/64 87.3 93 Room air PATIENT WEIGHT: Weight (lb): 171 Weight (oz): 12.16 Weight (kg): 77.909 Medications: Active Meds + DC'd Last 24 Hrs Hydrocodone Bitart/Acetaminophen 1 TAB Q4H PRN P RN PO Sertraline HCl 25 MG BEDTIME PO Albumin Human 12.5 GM ASDIR PRN IV Lidocaine HCl 0.5 ML ASDIR PRN I-DERMAL (CKD) Mannitol 12.5 GM ASDIR PRN IV Sodium Chloride 2,000 ML ASDIR PRN IV Sodium Chloride 10 ML ASDIR PRN IV Sodium Chloride 250 ML ASDIR PRN IV Piperacillin Sod/Tazobactam Sod 3.375 GM Q12H IV Sodium Chloride 100 ML Collagenase 1 APPLIC DAILY TOPICAL Lidocaine 1 PATCH DAILY TOPICAL Amitriptyline HCl 10 MG BEDTIME PO Triamcinolone Acetonide 40 MG PROCEDURE IM (CKD) Aspirin 81 MG DAILY PO Clopidogrel Bisulfate 75 MG DAILY PO Furosemide 40 MG DAILY PO Polyethylene Glycol 17 GM DAILY PO Senna 1 TAB DAILY PO (CKD) Venlafaxine HCl 75 MG DAILY PO Acetaminophen 650 MG Q6H PRN PRN PO Hydralazine HCl 10 MG Q6H PRN PRN PO Ondansetron HCl 4 MG TID PRN PRN SL Heparin Sodium 5,000 UNIT Q8H SUBQ Epoetin Donny-epbx 4,000 UNIT TuThSa@2100 SUBQ Gabapentin 300 MG BEDTIME PO Metoprolol Tartrate 25 MG BID PO Trazodone HCl 150 MG BEDTIME PO Hydrocodone Bitart/Acetaminophen 1 TAB Q4H PRN P RN PO (DC) Zolpidem Tartrate 5 MG BEDTIME PRN PRN PO Functional Progress Functional progress: PT daily note comment: S: PATIENT AGREEABLE FOR THERAPY. O: PATIENT PERFORMED ROLLING WITH IND, SUPINE T O SIT W/ IND, SIT TO SUPINE WITH IND, GT TRAINING FOR 100 FT , 200 FT W/ IND, WCMOBILITY FOR 400 FT. Pt. INSTRUCTED ON SEATED THER EX W/ LLE FOR AP, LAQ, HIP ABD/ADD/FLX FOR 2 SETS X 20 REPS EACH FOR STRENGTHENING AND USE OF MIRROR DURING THER EX. A: PATIENT PERFORMED TREATMENT WELL. P: CONTINUE PLAN OF CARE. Physical Exam General appearance: alert, awake Psych: alert, normal affect, oriented x 3 HEENT: anicteric, mucosal membranes moist, pupil s reactive to light, sclera clear, NC/AT Neck: non-tender, supple, no JVD Cardiovascular: regular rate rhythm, S1/S2, no m urmur Respiratory: aerating well, clear bilaterally, c lear to auscultation Abdomen: bowel sounds presen t, non-distended, soft, non-tender, no mass palpable Skin: dry, normal temperature, L AKA incision w 2 open areas of dehiscence-no drainage, no odor. Musculoskeletal - general: Musculoskeletal - general: normal tone, no swel ling, MMT moves all against gravity. BUE 4/5, SHORT PIECE HANDLER GOOD, RHF 3+/5, LLE 4/5. L calf NT, No cords. TTP L lateral thigh above trochanter bursae. Neuro/CUSTODIAN MANAGER: alert, oriented X 3, CNII-XII intact, normal speech, reflexes equal bilat Results Findings/Data: Microbiology: 05/24 152 ASPIRATE: Body Fluid Culture - ORD 05/24 1522 ASPIRATE: Anaerobic Culture - ORD 05/24 152 ASPIRATE: Gram Stain - ORD 05/24 1146 ASPIRATE: Body Fluid Culture - RES 05/24 114 ASPIRATE: Anaerobic Culture - RES 05/24 114 ASPIRATE: Gram Stain - RES Diagnosis, Assessment Plan Free Text A P: Assessment: Mechanical fall TBI with SDH, no surgical intervention required Stable acute L parafalcine SDH extending into the L tentorium with min left to right midline shift 04/03-Recent right AKA, previous right TKA compli cated by infection Impaired mobility and gait Generalized weakness Frequent falls 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 ESRD on hemodialysis Hyperkalemia resolved History of CAD Hypertension HLD Anemia of chronic disease Right AKA wound dehiscence-does not appear to be infected Left lateral thigh pain Left thigh pain, lateral femoral cutaneous neura lgia Significant impairment in self-care and function al mobility Plan: -Comprehensive inpatient rehabilitation with physical, occupational and speech therapy 3 hours a day for 5 to 6 days per week-2 05/18 rehabilitation physician supervision-03/09 rehabilitat ion nursing care-Case management for safe discharge planning-Rehab MD to monitor comorbidities and f unctional progress. -Decubitus prevention-protective hydrating lotio n-turn every 2 hours-offload -Right AKA wound dehiscence- wound care consulted-Dr. Gilbert-for now Xeroform and Mepilex -Consult new life brace management/prosthetics -Strict fall and safety precaution -DVT prophylaxis-SCDs and subcutaneous heparin -GI prophylaxis-Protonix -Early mobilization-OOB to chair -Work on bed mobility, transfer training , ADLs, pre-gait and gait exercises as tolerable. 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 intake, check albumin 3.2 and prealbumin 13.1, 14.3, dietary consult, protein supplements . -Await consultants input, internal medicine, nep hrology, pain management, ID, wound care -Domenica for a total of 7 days-to be completed to efrain 05/21-completed -Continue right AKA incisional dressing care-wou nds looking better -Prosthetic company consulted for evaluation -Continue aspirin and Plavix-Lasix -History of depression/anxie ty continue Carlyn Dixon Effexor-office asst bring in patient's home Pristiq -Monitor hemoglobin on Epogen -Hemodialysis as per nephrology-Saturday -Blood pressure currently stable on current medi cation -Renal diet -Left hip pain-x-ray of the left hip and pelvis showed no acute osseous fracture. The hip joint spaces are preserved-sat itor -Elevated WBC-possible infec amado right NASEEM-culture wound pending-no fever-repeat CBC 05/21-given patient's history of staph infect ion prior will consult ID. Patient seen by ID-patient placed on vancomycin now discontinued -Right AKA wound dehiscence- Culture done-rare gram-negative bacilli-Santyl with xeroform to dehisced sites cover with foam dress ing daily-As per wound care -Right AKA stump cellulitis-R/O fluid collection , check CT extremity without contrast-Superficial cx: Pseudomonas (R-Merrem), and CoNS-ESR 114/CRP 192 significant elevated-On Cefepime, change to Zosy n as per ID -05/23-CT of RLE-CT(+) 6/6/4cm loculated fluid co llection Infectious disease believes this is more of a seroma. I discussed w ith ID Dr. Sierra and he agrees with vascular surgery consul tation. I would like to treat this conservatively as possible since patient on rehab. Continue Zosyn as per ID-HAS MIDLINE -05/24 ID ordered special procedures IR aspiratio n of fluid -Depression worse-patient's office manag er to bring in patient's home Prestiq- psychiatry consult-started o n Zoloft-monitor closely-patient upset and depressed and became more depressed after he learned about the results of the CT. -Labs reviewed-WBC down to 9 .7-hemoglobin stable 9.5, sodium 133, creatinine 4.5 -Labs as per renal -Continue current medication -Continue brain injury and amputation IRF PM R Please see team note. Plan and goals discussed with the patient. I agree with the teams finding ELOS- [05/31] DC-Home with family-HH DME-HAS WC, TT 35 min>50% with discussin g with patient about vascular surgery consultation, depression, home Pristiq, progress, open wounds to right AKA, ID consult, continue IV antibiotic, rehab plan of care, goal s, expectations, needs, and medical issues, examination. MAR and EMR reviewe d. All Questions answered. Rehab attestation: Face to face exam completed. Treatment plan disc ussed with patient. Meets continued stay criteria. Agree with interdiscipl inary treatment plan. at 1754 RPT #:[id number] END OF REPORT 2020-05-24 22:54:00-00:00 [id number] [place] [address] PATIENT NAME: DARIEN GROSSMAN ADMIT DATE: 05/19/20 ACCOUNT NO: [id number] [place] [facility] [place] 74 REPORT TYPE: CONSULTATION REPORT SEX: M ADMITTING PHYSICIAN:Sekou Curtis MD ATTENDING PHYSICIAN:Sekou Curtis MD CONSULTATION DATE: 05/24/2020 CONSULTING PHYSICIAN: Harvey Bowling MD REASON FOR CONSULTATION: Right amputation stump fluid collection. HISTORY OF PRESENT ILLNESS: A 74-year-old male with multiple comorbidities, who underwent a right above-knee amputation back in March and the patient now admitted after suffering fro m a fall resulting in a subdural hematoma and is now undergoing rehab. The patient was noted to have drainage from his amputation site along with some pain and swelling. He had C AT scan done, which showed fluid collection in this area. He is now status post CT-guided drainage by interventional radiology and states that the stump is feeling better after the drainage. No fevers or chills, otherwise feeling in his usual state of health. CURRENT INPATIENT MEDICATIONS: Include N orco, Zoloft, mannitol, Zosyn, Elavil, Effexor, Senokot, MiraLax, Lasix, Plavix, aspiri n, hydralazine, Desyrel, Lopressor, Neurontin and Ambien. ALLERGIES: SHELLFISH, IODINE, PENICILLIN. PAST MEDICAL HISTORY: Includes end-stage renal d isease, coronary artery disease, hyperlipidemia, right knee infection. PAST SURGICAL HISTORY: Coronary stenting, right above-knee amputation, right knee surgery, left upper extremity AV fistula cr eation. FAMILY HISTORY: Noncontributory. SOCIAL HISTORY: There is no tobacco use, alcohol use or illicit drug use. PHYSICAL EXAMINATION: GENERAL: A 74-year-old male in no acute distress. He is alert and cooperative. VITAL SIGNS: BMI of 25.4, temperature 36 .9, heart rate of 68, respiratory rate of 16, blood pressure 130/69, satting 97% on juanpablo m air. HEENT: Normocephalic, atraumatic. NECK: Supple. No JVD or bruits are appreciated. CHEST: Clear. HEART: Regular. ABDOMEN: Soft, nontender, nondistended. EXTREMITIES: Left upper extremity forearm AV fis samuel with positive thrill and bruit. Hands neurologically intact. Right lower extremity AKA stump with dressings in place. There is a superficial ulcer ation on the medial aspect of PATIENT NAME: DARIEN GROSSMAN the incision that has a necrotic rim. No drainag e. The patient has a dressing in place to the mid portion of the stump , bloody drainage from recent drainage procedure done just earlier by IR. Left lower extremity with palpable femoral, popliteal and DP pulses. LABORATORY DATA: Show white count 9.7, hemoglobi n 9.5, hematocrit of 29.6 and platelet count of 395. Sodiu m 133, potassium of 4.1, chloride of 97, CO2 of 27, BUN of 54, and creatinine of 4.5. ASSESSMENT AND PLAN: Right above-knee amputation stump fluid collection. The patient is now status post drainage by intervent ional radiology. Await cultures. Continue antibiotics at this time per ID recommendations. No surgical intervention needed at present. Thank you for the referral. Dictated By: Harvey Bowling MD WT: CON:G.PENNIE/AL[place]RI[place]/LATHA Conf#: [id number]#: [id number] Authenticated by Harvey Bowling MD On 05/25/2020 03:48:29 PM Electronically Signed by Harvey Bowling MD on at 1548 PATIENT NAME: DARIEN GROSSMAN 2020-05-24 22:33:00-00:00 [facility]L [facility] Prog. Note REPORT#:[id number] REPORT STATUS: Signed DATE:05/24/20 TIME: 2232 PATIENT: DARIEN GROSSMAN UNIT #: [id number] ROOM/BED: [place] [address] : 45 AGE: 74 SEX: M ATTEND: Rosa Curtis MD ADM AUTHOR: Javier Meek MONOGRAM MAKER * ALL edits or amendments must be made on the C-Note/computer document * Subjective Chief Complaint: Right AKA Possible depression Review of Systems Constitutional: Denies: chills, fever. ENT: Denies: earache, nasal congestion, sore throat. Respiratory: Denies: hemoptysis, parox no cturnal dyspnea, pleurisy, pleuritic pain, pneumonia , SOB, wheezing. Cardiovascular: Denies: chest pain, palpitations. GI: Denies: abdominal pain, nausea, vomiting. : Denies: flank pain, frequency, hematuria. Musculoskeletal: Denies: extremity pain, extr emity swelling, joint pain, lumbar pain, neck pain. Neuro: Denies: change in LOC, confusion, dizziness, foc al weakness, gait problem, headache, lightheaded, numbness, seizure, slurre d speech, spinning sensation, syncope, unable to speak, vision change. Psych: Denies: agitation, anxiety, auditory hallucinati on, change in mental status, confusion, delusional, depre ssion, homicidal ideation, hostile, insomnia, stress , suicidal ideation, visual hallucination. All systems rev neg: except as marked Objective General VS/I O: Laboratory Tests 05/23 05/23 05/22 05/22 1300 1300 0535 0535 Chemistry Sodium (134 - 147 mEq/L) 133 L Potassium (3.4 - 5.0 mEq/L) 4.1 Chloride (100 - 108 mEq/L) 97 L Carbon Dioxide (21 - 33 mEq/l) 27 Anion Gap (0 - 20) 13 BUN (7 - 18 mg/dL) 54 H Creatinine (0.6 - 1.3 mg/dL) 4.5 H Glomerular Filtr Rate (70 - 80) 12.9 L Glucose (70 - 110 mg/dL) 200 H Calcium (8.0 - 10.5 mg/dL) 9.6 Phosphorus (2.5 - 4.9 MG/DL) 3.9 C-Reactive Protein (<10.0 mg/L) 192.0 H Albumin (3.4 - 5.0 g/dL) 3.20 L Prealbumin (16.0 - 40.0 mg/dL) 14.3 L 13.1 L Laboratory Tests 05/23 05/22 05/22 1300 0535 0535 Hematology WBC (4.5 - 11.0 x10 3/uL) 9.7 12.5 H RBC (4.00 - 5.60 x10 6/uL) 3.31 L 3.42 L Hgb (12.5 - 16.9 g/dL) 9.5 L 9.9 L Hct (37.5 - 50.7 %) 29.6 L 31.1 L MCV (81.0 - 99.0 fL) 89.4 90.9 MCH (27.0 - 33.0 pg) 28.7 28.9 MCHC (33.0 - 37.0 g/dL) 32.1 L 31.8 L RDW (11.5 - 14.5 %) 14.4 14.6 H Plt Count (150 - 400 x10 3/uL) 395 412 H MPV (7.0 - 9.0 fL) 8.3 8.6 Neut % (Auto) (56.0 - 77.0 %) 78.9 H 75.3 Lymph % (Auto) (14.0 - 32.0 %) 7.0 L 7.6 L Dolores % (Auto) (4.8 - 9.0 %) 7.2 9.8 H Eos % (Auto) (0.3 - 3.7 %) 5.9 H 6.3 H Baso % (Auto) (0.0 - 2.0 %) 0.4 0.4 Neut # (Auto) (2.0 - 7.6 x10 3/uL) 7.67 H 9.40 H Lymph # (Auto) (1.0 - 3.8 x10 3/uL) 0.68 L 0.95 L Dolores # (Auto) (0.1 - 0.8 x10 3/uL) 0.70 1.23 H Eos # (Auto) (0.0 - 0.2 x10 3/uL) 0.57 H 0.79 H Baso # (Auto) (0.0 - 0.2 x10 3/uL) 0.04 0.05 Abs Immat Gran (auto) (0.00 - 0.03 x10 3/uL) 0. 06 H 0.08 H Add Manual Diff NO NO Immature Gran % (0.0 - 2.0 %) 0.6 0.6 Nucleated RBC % (0 - 0 %) 0.0 0.0 Nucleated RBCs # (Man) (0.0 - 0.1 x10 3/uL) 0.0 0 0.00 ESR Westergren (0 - 15 mm/hr) 114 H Microbiology: 05/24 152 ASPIRATE: Body Fluid Culture - ORD 05/24 152 ASPIRATE: Anaerobic Culture - ORD 05/24 152 ASPIRATE: Gram Stain - ORD 05/24 114 ASPIRATE: Body Fluid Culture - RES 05/24 114 ASPIRATE: Anaerobic Culture - RES 05/24 114 ASPIRATE: Gram Stain - RES Vital Signs: Date Time Temp Pulse Resp B/P B/P Pulse O2 O2 F low FiO2 Mean Ox Delivery Rate 05/24 1937 36.9 68 16 130/69 89.3 97 Room air 05/24 1536 37.2 70 18 136/71 92.8 95 Room air 05/24 0724 37.2 60 18 134/64 87.3 93 Room air 05/24 0115 37.1 64 17 144/69 93.8 97 Room air 05/24 0700 05/23 2300 05/23 1500 Intake Total 240.00 Output Total 2300 Balance 240.00 -2300 Intake, IV 120.00 Intake, Oral 120 Number 1 Bowel Movements Number Voids 1 Output, 2300 Hemodialysis Current Medications Sig/Tatum Start time Last Medication Dose Route Stop Time Status Admin Hydrocodone Bitart/ 1 TAB Q4H PRN PRN 05/24 141 5 AC 05/24 Acetaminophen PO 06/10 1200 2158 Sertraline HCl 25 MG BEDTIME 05/23 2100 AC 05/12 3 PO 06/22 Albumin Human 12.5 GM ASDIR PRN 05/23 1415 AC IV 06/23 1413 Lidocaine HCl 0.5 ML ASDIR PRN 05/23 1415 CKD I-DERMAL 06/23 1413 Mannitol 12.5 GM ASDIR PRN 05/23 1415 AC IV 06/23 1413 Sodium Chloride 2,000 ML ASDIR PRN 05/23 1415 A C 05/23 IV 06/23 1413 1439 Sodium Chloride 10 ML ASDIR PRN 05/23 1415 AC 0 05/23 IV 06/22 1414 1440 Sodium Chloride 250 ML ASDIR PRN 05/23 1415 AC IV 06/22 1414 Piperacillin Sod/ 3.375 GM Q12H 05/23 1300 AC 0 05/24 Tazobactam Sod IV 05/30 1259 1421 Sodium Chloride 100 ML Collagenase 1 APPLIC DAILY 05/22 899 AC 05/24 TOPICAL 06/21 0859 0827 Lidocaine 1 PATCH DAILY 05/21 899 AC 05/24 TOPICAL 06/20 0859 0827 Amitriptyline HCl 10 MG BEDTIME 05/20 2100 AC 0 05/24 PO 06/19 Triamcinolone 40 MG PROCEDURE 05/20 1944 CKD Acetonide IM 06/20 1943 Aspirin 81 MG DAILY 05/20 899 AC 05/24 PO 06/19 1300 0827 Clopidogrel Bisulfate 75 MG DAILY 05/20 899 AC 05/24 PO 06/19 1300 0829 Furosemide 40 MG DAILY 05/20 899 AC 05/24 PO 06/19 1300 0826 Polyethylene Glycol 17 GM DAILY 05/20 899 AC 0 05/21 PO 06/19 1300 1016 Senna 1 TAB DAILY 05/20 899 CKD 05/21 PO 06/19 1300 1015 Venlafaxine HCl 75 MG DAILY 05/20 899 AC 05/24 PO 06/19 1300 0826 Acetaminophen 650 MG Q6H PRN PRN 05/20 0845 AC PO 06/19 0844 Hydralazine HCl 10 MG Q6H PRN PRN 05/20 0845 AC PO 06/19 0844 Ondansetron HCl 4 MG TID PRN PRN 05/20 0845 AC SL 06/19 0844 Heparin Sodium 5,000 UNIT Q8H 05/19 2200 AC SUBQ 06/19 1300 2100 Epoetin Donny-epbx 4,000 UNIT TuThSa@2100 05/19 2100 AC 05/24 SUBQ 06/19 1300 2059 Gabapentin 300 MG BEDTIME 05/19 2099 AC 05/24 PO 06/19 1300 2059 Metoprolol Tartrate 25 MG BID 05/19 2099 AC PO 06/19 1300 2100 Trazodone HCl 150 MG BEDTIME 05/19 2100 AC 05/12 3 PO 06/19 1300 2100 Hydrocodone Bitart/ 1 TAB Q4H PRN PRN 05/19 201 5 DC 05/20 Acetaminophen PO 07/20 1300 2244 Zolpidem Tartrate 5 MG BEDTIME PRN PRN 05/19 20 00 AC 05/24 PO 06/19 1300 2059 Recent Impressions-Last 72 Hrs CAT SCAN - CT LOWER EXTRM W/O C RT 05/23 1728 Report Impression - Status: SIGNED Entered: 05/23/2020 1806 IMPRESSION: Above the knee amputation changes wi th complex soft tissue fluid collection at the stump site. There is los s of fatty medullary density at the stump site. Osteomyelitis is not excluded. Correlate with MRI as clinically indicated. SL: SG-H Impression By: [email or web address] - Dominic Mena M.D. ULTRASOUND - USG NDL PLACEMENT (Bxg/Asp) 05/24 1 434 Report Impression - Status: SIGNED Entered: 05/24/2020 1515 IMPRESSION: 1. Technically successful ultrasound-guided aspi ration of a right knee stump collection. Impression By: [email or web address] - Paloma Arvizu D.O. Vital Signs Date Temp Pulse Resp B/P B/P Mean Pulse Ox FiO 2 05/24 36.9-37.2 60-70 16-18 130-144/64-71 87.3- 93.8 93-97 Last Documented: Result Date Time Pulse Ox 97 05/24 1937 B/P 130/69 05/24 1937 B/P Mean 89.3 05/24 1937 O2 Delivery Room air 05/24 1937 Temp 36.9 05/24 1937 Pulse 68 05/24 1937 Resp 16 05/24 1937 24 hour I O ending at 0700: 05/24 0700 05/23 1900 Intake Total 240.00 Output Total 2300 Balance 240.00 -2300 Intake, IV 120.00 Intake, Oral 120 Number 1 Bowel Movements Number Voids 1 Output, 2300 Hemodialysis PATIENT WEIGHT: Weight (lb): 171 Weight (oz): 12.16 Weight (kg): 77.909 Physical Exam General appearance: alert, awake Neck: no JVD Cardiovascular: regular rate rhythm Respiratory: aerating well, clear to auscultatio n Abdomen: non-tender, normal bowel sounds, soft Extremities: Extremities: RT AKA Neuro/CUSTODIAN MANAGER: alert, oriented x 3 Skin: dry, normal temperature Psychiatry: depressed, normal judgement/insight Diagnosis, Assessment Plan Free Text DxA P Notes Free text DxA P notes: Assessment: 1.Mechanical fall 2.Traumatic brain injury with subdural hematoma 3. Right AKA pulmonary 2020 4. IMpaired mobility/Impaired gait 5. History of depression 6. Generalized weakness 7. Phantom pain 8. End-stage renal disease on hemodialysis 3 day s a week 9. Anemia 10. History of coronary artery disease, hyperten willy, and hyperlipidemia 05/21/20 Patient's doing well Sitting in a wheelchair Participating in therapy Family visiting at the bedside 05/22/20 Patient participating in therapy daily Reportedly patient is depressed He answered all my questions but seems to be sad May 23, 2020 No leukocytosis, anemia Continue to monitor renal function CT of the right femur without contrast: Bycix-cbc-atob amputation changes with complex soft tissue fluid collection at the stump site. There is loss of fatty medullary density at the stump site. Osteomyelit is is not excluded. Correlate with MRI. Continue wound care May 24, 2020 The patient underwent ultrasound-guided aspirati on of superficial fluid collection Plan of care: -Continue with comprehensive inpatient rehabilit [facility] rehab team -Pain control -Fall precaution -DVT prophylaxis subcu heparin -GI prophylaxis patient currently on Protonix -Pain control as pain management -Seizure precaution patient on Keppra -Continues present medications -Monitor labs -Plan of care discussed with the patient, galina marcano nurse, and Dr. Cavazos. Electronically Signed by Javier Meek MONOGRAM MAKER on 0 05/26/20 at 0233 RPT #:[id number] END OF REPORT 2020-05-24 22:33:00-00:00 [facility]L [facility] Prog. Note REPORT#:[id number] REPORT STATUS: Signed DATE:05/24/20 TIME: 2232 PATIENT: DARIEN GROSSMAN UNIT #: [id number] ROOM/BED: [place] [address] : 45 AGE: 74 SEX: M ATTEND: Rosa Curtis MD ADM AUTHOR: Javier Meek MONOGRAM MAKER * ALL edits or amendments must be made on the C-Note/computer document * Javier Meek 05/24/202232: Subjective Chief Complaint: Right AKA Possible depression Review of Systems Constitutional: Denies: chills, fever. ENT: Denies: earache, nasal congestion, sore throat. Respiratory: Denies: hemoptysis, parox no cturnal dyspnea, pleurisy, pleuritic pain, pneumonia , SOB, wheezing. Cardiovascular: Denies: chest pain, palpitations. GI: Denies: abdominal pain, nausea, vomiting. : Denies: flank pain, frequency, hematuria. Musculoskeletal: Denies: extremity pain, extr emity swelling, joint pain, lumbar pain, neck pain. Neuro: Denies: change in LOC, confusion, dizziness, foc al weakness, gait problem, headache, lightheaded, numbness, seizure, slurre d speech, spinning sensation, syncope, unable to speak, vision change. Psych: Denies: agitation, anxiety, auditory hallucinati on, change in mental status, confusion, delusional, depre ssion, homicidal ideation, hostile, insomnia, stress , suicidal ideation, visual hallucination. All systems rev neg: except as marked Objective General VS/I O: Laboratory Tests 05/23 05/23 05/22 05/22 1300 1300 0535 0535 Chemistry Sodium (134 - 147 mEq/L) 133 L Potassium (3.4 - 5.0 mEq/L) 4.1 Chloride (100 - 108 mEq/L) 97 L Carbon Dioxide (21 - 33 mEq/l) 27 Anion Gap (0 - 20) 13 BUN (7 - 18 mg/dL) 54 H Creatinine (0.6 - 1.3 mg/dL) 4.5 H Glomerular Filtr Rate (70 - 80) 12.9 L Glucose (70 - 110 mg/dL) 200 H Calcium (8.0 - 10.5 mg/dL) 9.6 Phosphorus (2.5 - 4.9 MG/DL) 3.9 C-Reactive Protein (<10.0 mg/L) 192.0 H Albumin (3.4 - 5.0 g/dL) 3.20 L Prealbumin (16.0 - 40.0 mg/dL) 14.3 L 13.1 L Laboratory Tests 05/23 05/22 05/22 1300 0535 0535 Hematology WBC (4.5 - 11.0 x10 3/uL) 9.7 12.5 H RBC (4.00 - 5.60 x10 6/uL) 3.31 L 3.42 L Hgb (12.5 - 16.9 g/dL) 9.5 L 9.9 L Hct (37.5 - 50.7 %) 29.6 L 31.1 L MCV (81.0 - 99.0 fL) 89.4 90.9 MCH (27.0 - 33.0 pg) 28.7 28.9 MCHC (33.0 - 37.0 g/dL) 32.1 L 31.8 L RDW (11.5 - 14.5 %) 14.4 14.6 H Plt Count (150 - 400 x10 3/uL) 395 412 H MPV (7.0 - 9.0 fL) 8.3 8.6 Neut % (Auto) (56.0 - 77.0 %) 78.9 H 75.3 Lymph % (Auto) (14.0 - 32.0 %) 7.0 L 7.6 L Dolores % (Auto) (4.8 - 9.0 %) 7.2 9.8 H Eos % (Auto) (0.3 - 3.7 %) 5.9 H 6.3 H Baso % (Auto) (0.0 - 2.0 %) 0.4 0.4 Neut # (Auto) (2.0 - 7.6 x10 3/uL) 7.67 H 9.40 H Lymph # (Auto) (1.0 - 3.8 x10 3/uL) 0.68 L 0.95 L Dolores # (Auto) (0.1 - 0.8 x10 3/uL) 0.70 1.23 H Eos # (Auto) (0.0 - 0.2 x10 3/uL) 0.57 H 0.79 H Baso # (Auto) (0.0 - 0.2 x10 3/uL) 0.04 0.05 Abs Immat Gran (auto) (0.00 - 0.03 x10 3/uL) 0. 06 H 0.08 H Add Manual Diff NO NO Immature Gran % (0.0 - 2.0 %) 0.6 0.6 Nucleated RBC % (0 - 0 %) 0.0 0.0 Nucleated RBCs # (Man) (0.0 - 0.1 x10 3/uL) 0.0 0 0.00 ESR Westergren (0 - 15 mm/hr) 114 H Microbiology: 05/24 152 ASPIRATE: Body Fluid Culture - ORD 05/24 152 ASPIRATE: Anaerobic Culture - ORD 05/24 152 ASPIRATE: Gram Stain - ORD 05/24 1146 ASPIRATE: Body Fluid Culture - RES 05/24 1146 ASPIRATE: Anaerobic Culture - RES 05/24 1146 ASPIRATE: Gram Stain - RES Vital Signs: Date Time Temp Pulse Resp B/P B/P Pulse O2 O2 F low FiO2 Mean Ox Delivery Rate 05/24 1937 36.9 68 16 130/69 89.3 97 Room air 05/24 1536 37.2 70 18 136/71 92.8 95 Room air 05/24 0724 37.2 60 18 134/64 87.3 93 Room air 05/24 0115 37.1 64 17 144/69 93.8 97 Room air 05/24 0700 05/23 2300 05/23 1500 Intake Total 240.00 Output Total 2300 Balance 240.00 -2300 Intake, IV 120.00 Intake, Oral 120 Number 1 Bowel Movements Number Voids 1 Output, 2300 Hemodialysis Current Medications Sig/Tatum Start time Last Medication Dose Route Stop Time Status Admin Hydrocodone Bitart/ 1 TAB Q4H PRN PRN 05/24 141 5 AC 05/24 Acetaminophen PO 06/10 1200 2158 Sertraline HCl 25 MG BEDTIME 05/23 2100 AC PO 06/22 Albumin Human 12.5 GM ASDIR PRN 05/23 1415 AC IV 06/23 1413 Lidocaine HCl 0.5 ML ASDIR PRN 05/23 1415 CKD I-DERMAL 06/23 1413 Mannitol 12.5 GM ASDIR PRN 05/23 1415 AC IV 06/23 1413 Sodium Chloride 2,000 ML ASDIR PRN 05/23 1415 AC 05/23 IV 06/23 1413 1439 Sodium Chloride 10 ML ASDIR PRN 05/23 1415 AC 0 05/23 IV 06/22 1414 1440 Sodium Chloride 250 ML ASDIR PRN 05/23 1415 AC IV 06/22 1414 Piperacillin Sod/ 3.375 GM Q12H 05/23 1300 AC 0 05/24 Tazobactam Sod IV 05/30 1259 1421 Sodium Chloride 100 ML Collagenase 1 APPLIC DAILY 05/22 899 AC 05/24 TOPICAL 06/21 0859 0827 Lidocaine 1 PATCH DAILY 05/21 899 AC 05/24 TOPICAL 06/20 0859 0827 Amitriptyline HCl 10 MG BEDTIME 05/20 2100 AC 0 05/24 PO 06/19 Triamcinolone 40 MG PROCEDURE 05/20 1944 CKD Acetonide IM 06/20 1943 Aspirin 81 MG DAILY 05/20 899 AC 05/24 PO 06/19 1300 0827 Clopidogrel Bisulfate 75 MG DAILY 05/20 899 AC 05/24 PO 06/19 1300 0829 Furosemide 40 MG DAILY 05/20 899 AC 05/24 PO 06/19 1300 0826 Polyethylene Glycol 17 GM DAILY 05/20 899 AC 0 05/21 PO 06/19 1300 1016 Senna 1 TAB DAILY 05/20 899 CKD 05/21 PO 06/19 1300 1015 Venlafaxine HCl 75 MG DAILY 05/20 899 AC 05/24 PO 06/19 1300 0826 Acetaminophen 650 MG Q6H PRN PRN 05/20 0845 AC PO 06/19 0844 Hydralazine HCl 10 MG Q6H PRN PRN 05/20 0845 AC PO 06/19 0844 Ondansetron HCl 4 MG TID PRN PRN 05/20 0845 AC SL 06/19 0844 Heparin Sodium 5,000 UNIT Q8H 05/19 2200 AC SUBQ 06/19 1300 2100 Epoetin Donny-epbx 4,000 UNIT TuThSa@2100 05/19 2100 AC 05/24 SUBQ 06/19 1300 205 Gabapentin 300 MG BEDTIME 05/19 2099 AC 05/24 PO 06/19 1300 205 Metoprolol Tartrate 25 MG BID 05/19 2099 AC PO 06/19 1300 2100 Trazodone HCl 150 MG BEDTIME 05/19 2099 AC PO 06/19 1300 2100 Hydrocodone Bitart/ 1 TAB Q4H PRN PRN 05/19 201 5 DC 05/20 Acetaminophen PO 07/20 1300 2244 Zolpidem Tartrate 5 MG BEDTIME PRN PRN 05/19 20 00 AC 05/24 PO 06/19 1300 2059 Recent Impressions-Last 72 Hrs CAT SCAN - CT LOWER EXTRM W/O C RT 05/23 1728 Report Impression - Status: SIGNED Entered: 05/23/2020 1806 IMPRESSION: Above the knee amputation changes wi th complex soft tissue fluid collection at the stump site. There is los s of fatty medullary density at the stump site. Osteomyelitis is not excluded. Correlate with MRI as clinically indicated. SL: SG-H Impression By: [email or web address] - Dominic Mena M.D. ULTRASOUND - USG NDL PLACEMENT (Bxg/Asp) 05/24 1 434 Report Impression - Status: SIGNED Entered: 05/24/2020 1515 IMPRESSION: 1. Technically successful ultrasound-guided aspi ration of a right knee stump collection. Impression By: [email or web address] - Paloma Arvizu D.O. Vital Signs Date Temp Pulse Resp B/P B/P Mean Pulse Ox FiO2 05/24 36.9-37.2 60-70 16-18 130-144/64-71 87.3 -93.8 93-97 Last Documented: Result Date Time Pulse Ox 97 05/24 1937 B/P 130/69 05/24 1937 B/P Mean 89.3 05/24 1937 O2 Delivery Room air 05/24 1937 Temp 36.9 05/24 1937 Pulse 68 05/24 1937 Resp 16 05/24 1937 24 hour I O ending at 0700: 05/24 0700 05/23 1900 Intake Total 240.00 Output Total 2300 Balance 240.00 -2300 Intake, IV 120.00 Intake, Oral 120 Number 1 Bowel Movements Number Voids 1 Output, 2300 Hemodialysis PATIENT WEIGHT: Weight (lb): 171 Weight (oz): 12.16 Weight (kg): 77.909 Physical Exam General appearance: alert, awake Neck: no JVD Cardiovascular: regular rate rhythm Respiratory: aerating well, clear to auscultatio n Abdomen: non-tender, normal bowel sounds, soft Extremities: Extremities: RT AKA Neuro/CUSTODIAN MANAGER: alert, oriented x 3 Skin: dry, normal temperature Psychiatry: depressed, normal judgement/insight Diagnosis, Assessment Plan Free Text DxA P Notes Free text DxA P notes: Assessment: 1.Mechanical fall 2.Traumatic brain injury with subdural hematoma 3. Right AKA pulmonary 2020 4. IMpaired mobility/Impaired gait 5. History of depression 6. Generalized weakness 7. Phantom pain 8. End-stage renal disease on hemodialysis 3 day s a week 9. Anemia 10. History of coronary artery disease, hyperten willy, and hyperlipidemia 05/21/20 Patient's doing well Sitting in a wheelchair Participating in therapy Family visiting at the bedside 05/22/20 Patient participating in therapy daily Reportedly patient is depressed He answered all my questions but seems to be sad May 23, 2020 No leukocytosis, anemia Continue to monitor renal function CT of the right femur without contrast: [id number] amputation changes with complex soft tissue fluid collection at the stump site. There is loss of fatty medullary density at the stump site. Osteomyelit is is not excluded. Correlate with MRI. Continue wound care May 24, 2020 The patient underwent ultrasound-guided aspirati on of superficial fluid collection Plan of care: -Continue with comprehensive inpatient rehabilit [facility] rehab team -Pain control -Fall precaution -DVT prophylaxis subcu heparin -GI prophylaxis patient currently on Protonix -Pain control as pain management -Seizure precaution patient on Keppra -Continues present medications -Monitor labs -Plan of care discussed with the patient, galina palma's nurse, and Dr. Cavazos. Danny Cavazos 05/26/20 2314: Attestations Physician Attestation Agree w/findings plan: Patient seen and examined on 05/24/2020. I agree with the findings and plan as documented by JOSE Meek. Plan of care coordinat ed with JOSE Meek. Pertinent labs, Imaging, and store sales consultant evaluations review ed. 74-year-old male was admitted to inpatient rehab for comprehensive rehabilitation. He underwent ultrasound- guided aspiration of superficial fluid collection. We will continue with comprehensive inpatient rehabilitation was per rehab team, pain control, fall precautions, DVT prophylaxis with subcu heparin, GI prophylaxis with Protonix, pain control as pain management, seizure precautions with Keppra, and present medications . We will continue to monitor his labs. Electronically Signed by Javier Meek NP on 0 05/26/20 at 0233 RPT #:[id number] END OF REPORT 2020-05-24 22:33:00-00:00 [facility] REPORT#:[id number] REPORT STATUS: Signed DATE:05/24/20 TIME: 2232 PATIENT: DARIEN GROSSMAN UNIT #: [id number] ROOM/BED: [place] [address] : 45 AGE: 74 SEX: M ATTEND: Rosa Curtis MD ADM AUTHOR: Javier Meek MONOGRAM MAKER * ALL edits or amendments must be made on the C-Note/computer document * Javier Meek 05/24/202232: Subjective Chief Complaint: Right AKA Possible depression Review of Systems Constitutional: Denies: chills, fever. ENT: Denies: earache, nasal congestion, sore throat. Respiratory: Denies: hemoptysis, parox no cturnal dyspnea, pleurisy, pleuritic pain, pneumonia , SOB, wheezing. Cardiovascular: Denies: chest pain, palpitations. GI: Denies: abdominal pain, nausea, vomiting. : Denies: flank pain, frequency, hematuria. Musculoskeletal: Denies: extremity pain, extr emity swelling, joint pain, lumbar pain, neck pain. Neuro: Denies: change in LOC, confusion, dizziness, foc al weakness, gait problem, headache, lightheaded, numbness, seizure, slurre d speech, spinning sensation, syncope, unable to speak, vision change. Psych: Denies: agitation, anxiety, auditory hallucinati on, change in mental status, confusion, delusional, depre ssion, homicidal ideation, hostile, insomnia, stress , suicidal ideation, visual hallucination. All systems rev neg: except as marked Objective General VS/I O: Laboratory Tests 05/23 05/23 05/22 05/22 1300 1300 0535 0535 Chemistry Sodium (134 - 147 mEq/L) 133 L Potassium (3.4 - 5.0 mEq/L) 4.1 Chloride (100 - 108 mEq/L) 97 L Carbon Dioxide (21 - 33 mEq/l) 27 Anion Gap (0 - 20) 13 BUN (7 - 18 mg/dL) 54 H Creatinine (0.6 - 1.3 mg/dL) 4.5 H Glomerular Filtr Rate (70 - 80) 12.9 L Glucose (70 - 110 mg/dL) 200 H Calcium (8.0 - 10.5 mg/dL) 9.6 Phosphorus (2.5 - 4.9 MG/DL) 3.9 C-Reactive Protein (<10.0 mg/L) 192.0 H Albumin (3.4 - 5.0 g/dL) 3.20 L Prealbumin (16.0 - 40.0 mg/dL) 14.3 L 13.1 L Laboratory Tests 05/23 05/22 05/22 1300 0535 0535 Hematology WBC (4.5 - 11.0 x10 3/uL) 9.7 12.5 H RBC (4.00 - 5.60 x10 6/uL) 3.31 L 3.42 L Hgb (12.5 - 16.9 g/dL) 9.5 L 9.9 L Hct (37.5 - 50.7 %) 29.6 L 31.1 L MCV (81.0 - 99.0 fL) 89.4 90.9 MCH (27.0 - 33.0 pg) 28.7 28.9 MCHC (33.0 - 37.0 g/dL) 32.1 L 31.8 L RDW (11.5 - 14.5 %) 14.4 14.6 H Plt Count (150 - 400 x10 3/uL) 395 412 H MPV (7.0 - 9.0 fL) 8.3 8.6 Neut % (Auto) (56.0 - 77.0 %) 78.9 H 75.3 Lymph % (Auto) (14.0 - 32.0 %) 7.0 L 7.6 L Dolores % (Auto) (4.8 - 9.0 %) 7.2 9.8 H Eos % (Auto) (0.3 - 3.7 %) 5.9 H 6.3 H Baso % (Auto) (0.0 - 2.0 %) 0.4 0.4 Neut # (Auto) (2.0 - 7.6 x10 3/uL) 7.67 H 9.40 H Lymph # (Auto) (1.0 - 3.8 x10 3/uL) 0.68 L 0.95 L Dolores # (Auto) (0.1 - 0.8 x10 3/uL) 0.70 1.23 H Eos # (Auto) (0.0 - 0.2 x10 3/uL) 0.57 H 0.79 H Baso # (Auto) (0.0 - 0.2 x10 3/uL) 0.04 0.05 Abs Immat Gran (auto) (0.00 - 0.03 x10 3/uL) 0. 06 H 0.08 H Add Manual Diff NO NO Immature Gran % (0.0 - 2.0 %) 0.6 0.6 Nucleated RBC % (0 - 0 %) 0.0 0.0 Nucleated RBCs # (Man) (0.0 - 0.1 x10 3/uL) 0.0 0 0.00 ESR Westergren (0 - 15 mm/hr) 114 H Microbiology: 05/24 152 ASPIRATE: Body Fluid Culture - ORD 05/24 152 ASPIRATE: Anaerobic Culture - ORD 05/24 152 ASPIRATE: Gram Stain - ORD 05/24 1146 ASPIRATE: Body Fluid Culture - RES 05/24 1146 ASPIRATE: Anaerobic Culture - RES 05/24 1146 ASPIRATE: Gram Stain - RES Vital Signs: Date Time Temp Pulse Resp B/P B/P Pulse O2 O2 F low FiO2 Mean Ox Delivery Rate 05/24 1937 36.9 68 16 130/69 89.3 97 Room air 05/24 1536 37.2 70 18 136/71 92.8 95 Room air 05/24 0724 37.2 60 18 134/64 87.3 93 Room air 05/24 0115 37.1 64 17 144/69 93.8 97 Room air 05/24 0700 05/23 2300 05/23 1500 Intake Total 240.00 Output Total 2300 Balance 240.00 -2300 Intake, IV 120.00 Intake, Oral 120 Number 1 Bowel Movements Number Voids 1 Output, 2300 Hemodialysis Current Medications Sig/Tatum Start time Last Medication Dose Route Stop Time Status Admin Hydrocodone Bitart/ 1 TAB Q4H PRN PRN 05/24 141 5 AC 05/24 Acetaminophen PO 06/10 1200 2158 Sertraline HCl 25 MG BEDTIME 05/23 2099 AC PO 06/22 Albumin Human 12.5 GM ASDIR PRN 05/23 1415 AC IV 06/23 1413 Lidocaine HCl 0.5 ML ASDIR PRN 05/23 1415 CKD I-DERMAL 06/23 1413 Mannitol 12.5 GM ASDIR PRN 05/23 1415 AC IV 06/23 1413 Sodium Chloride 2,000 ML ASDIR PRN 05/23 1415 A C 05/23 IV 06/23 1413 1439 Sodium Chloride 10 ML ASDIR PRN 05/23 1415 AC 0 05/23 IV 06/22 1414 1440 Sodium Chloride 250 ML ASDIR PRN 05/23 1415 AC IV 06/22 1414 Piperacillin Sod/ 3.375 GM Q12H 05/23 1300 AC 0 05/24 Tazobactam Sod IV 05/30 1259 1421 Sodium Chloride 100 ML Collagenase 1 APPLIC DAILY 05/22 899 AC 05/24 TOPICAL 06/21 0859 08 Lidocaine 1 PATCH DAILY 05/21 899 AC 05/24 TOPICAL 06/20 0859 0827 Amitriptyline HCl 10 MG BEDTIME 05/20 2100 AC 05/24 PO 06/19 Triamcinolone 40 MG PROCEDURE 05/20 1944 CKD Acetonide IM 06/20 1943 Aspirin 81 MG DAILY 05/20 899 AC 05/24 PO 06/19 1300 0827 Clopidogrel Bisulfate 75 MG DAILY 05/20 899 AC 05/24 PO 06/19 1300 0829 Furosemide 40 MG DAILY 05/20 899 AC 05/24 PO 06/19 1300 0826 Polyethylene Glycol 17 GM DAILY 05/20 899 AC 05/21 PO 06/19 1300 1016 Senna 1 TAB DAILY 05/20 899 CKD 05/21 PO 06/19 1300 1015 Venlafaxine HCl 75 MG DAILY 05/20 899 AC 05/24 PO 06/19 1300 0826 Acetaminophen 650 MG Q6H PRN PRN 05/20 0845 AC PO 06/19 0844 Hydralazine HCl 10 MG Q6H PRN PRN 05/20 0845 AC PO 06/19 0844 Ondansetron HCl 4 MG TID PRN PRN 05/20 0845 AC SL 06/19 0844 Heparin Sodium 5,000 UNIT Q8H 05/19 2200 AC SUBQ 06/19 1300 2100 Epoetin Donny-epbx 4,000 UNIT TuThSa@2100 05/19 2100 AC 05/24 SUBQ 06/19 1300 2059 Gabapentin 300 MG BEDTIME 05/19 2100 AC 05/24 PO 06/19 1300 2059 Metoprolol Tartrate 25 MG BID 05/19 2099 AC PO 06/19 1300 2100 Trazodone HCl 150 MG BEDTIME 05/19 2100 AC PO 06/19 1300 2100 Hydrocodone Bitart/ 1 TAB Q4H PRN PRN 05/19 201 5 DC 05/20 Acetaminophen PO 07/20 1300 2244 Zolpidem Tartrate 5 MG BEDTIME PRN PRN 05/19 20 00 AC 05/24 PO 06/19 1300 2059 Recent Impressions-Last 72 Hrs CAT SCAN - CT LOWER EXTRM W/O C RT 05/23 1728 Report Impression - Status: SIGNED Entered: 05/23/2020 1806 IMPRESSION: Above the knee amputation changes wi th complex soft tissue fluid collection at the stump site. There is los s of fatty medullary density at the stump site. Osteomyelitis is not excluded. Correlate with MRI as clinically indicated. SL: SG-H Impression By: [email or web address] - Dominic Mena M.D. ULTRASOUND - USG NDL PLACEMENT (Bxg/Asp) 05/24 1 434 Report Impression - Status: SIGNED Entered: 05/24/2020 0425 IMPRESSION: 1. Technically successful ultrasound-guided aspi ration of a right knee stump collection. Impression By: [id number] - Paloma Arvizu D.O. Vital Signs Date Temp Pulse Resp B/P B/P Mean Pulse Ox FiO2 05/24 36.9-37.2 60-70 16-18 130-144/64-71 87.3- 93.8 93-97 Last Documented: Result Date Time Pulse Ox 97 05/24 1937 B/P 130/69 05/24 1937 B/P Mean 89.3 05/24 1937 O2 Delivery Room air 05/24 1937 Temp 36.9 05/24 1937 Pulse 68 05/24 1937 Resp 16 05/24 1937 24 hour I O ending at 0700: 05/24 0700 05/23 1900 Intake Total 240.00 Output Total 2300 Balance 240.00 -2300 Intake, IV 120.00 Intake, Oral 120 Number 1 Bowel Movements Number Voids 1 Output, 2300 Hemodialysis PATIENT WEIGHT: Weight (lb): 171 Weight (oz): 12.16 Weight (kg): 77.909 Physical Exam General appearance: alert, awake Neck: no JVD Cardiovascular: regular rate rhythm Respiratory: aerating well, clear to auscultatio n Abdomen: non-tender, normal bowel sounds, soft Extremities: Extremities: RT AKA Neuro/CUSTODIAN MANAGER: alert, oriented x 3 Skin: dry, normal temperature Psychiatry: depressed, normal judgement/insight Diagnosis, Assessment Plan Free Text DxA P Notes Free text DxA P notes: Assessment: 1.Mechanical fall 2.Traumatic brain injury with subdural hematoma 3. Right AKA pulmonary 2020 4. IMpaired mobility/Impaired gait 5. History of depression 6. Generalized weakness 7. Phantom pain 8. End-stage renal disease on hemodialysis 3 day s a week 9. Anemia 10. History of coronary artery disease, hyperten willy, and hyperlipidemia 05/21/20 Patient's doing well Sitting in a wheelchair Participating in therapy Family visiting at the bedside 05/22/20 Patient participating in therapy daily Reportedly patient is depressed He answered all my questions but seems to be sad May 23, 2020 No leukocytosis, anemia Continue to monitor renal function CT of the right femur without contrast: [id number] amputation changes with complex soft tissue fluid collection at the stump site. There is loss of fatty medullary density at the stump site. Osteomyelit is is not excluded. Correlate with MRI. Continue wound care May 24, 2020 The patient underwent ultrasound-guided aspirati on of superficial fluid collection Plan of care: -Continue with comprehensive inpatient rehabilit [facility] rehab team -Pain control -Fall precaution -DVT prophylaxis subcu heparin -GI prophylaxis patient currently on Protonix -Pain control as pain management -Seizure precaution patient on Keppra -Continues present medications -Monitor labs -Plan of care discussed with the patient, galina marcano nurse, and Dr. Cavazos. Danny Cavazos 05/26/20 2314: Attestations Physician Attestation Agree w/findings plan: Patient seen and examined on 05/24/2020. I agree with the findings and plan as documented by JOSE Meek. Plan of care coordinat ed with JOSE Meek. Pertinent labs, Imaging, and store sales consultant evaluations review ed. 74-year-old male was admitted to inpatient rehab for comprehensive rehabilitation. He underwent ultrasound- guided aspiration of superficial fluid collection. We will continue with comprehensive inpatient rehabilitation was per rehab team, pain control, fall precautions, DVT prophylaxis with subcu heparin, GI prophylaxis with Protonix, pain control as pain management, seizure precautions with Keppra, and present medications . We will continue to monitor his labs. Electronically Signed by Javier Meek NP on 0 05/26/20 at 0233 RPT #:[id number] END OF REPORT 2020-05-24 22:33:00-00:00 [facility] ([facility]) Internal Medicine Prog. Note REPORT#:[id number] REPORT STATUS: Signed DATE:05/24/20 TIME: 2232 PATIENT: DARIEN GROSSMAN UNIT #: [id number] ROOM/BED: [facility] : 45 AGE: 74 SEX: M ATTEND: Rosa Curtis MD ADM AUTHOR: Javier Meek MONOGRAM MAKER * ALL edits or amendments must be made on the [employer]/computer document * Javier Meek 05/24/203: Subjective Chief Complaint: Right AKA Possible depression Review of Systems Constitutional: Denies: chills, fever. ENT: Denies: earache, nasal congestion, sore throat. Respiratory: Denies: hemoptysis, parox no cturnal dyspnea, pleurisy, pleuritic pain, pneumonia , SOB, wheezing. Cardiovascular: Denies: chest pain, palpitations. GI: Denies: abdominal pain, nausea, vomiting. : Denies: flank pain, frequency, hematuria. Musculoskeletal: Denies: extremity pain, extr emity swelling, joint pain, lumbar pain, neck pain. Neuro: Denies: change in LOC, confusion, dizziness, foc al weakness, gait problem, headache, lightheaded, numbness, seizure, slurre d speech, spinning sensation, syncope, unable to speak, vision change. Psych: Denies: agitation, anxiety, auditory hallucinati on, change in mental status, confusion, delusional, depre ssion, homicidal ideation, hostile, insomnia, stress , suicidal ideation, visual hallucination. All systems rev neg: except as marked Objective General VS/I O: Laboratory Tests 05/23 05/23 05/22 05/22 1300 1300 0535 0535 Chemistry Sodium (134 - 147 mEq/L) 133 L Potassium (3.4 - 5.0 mEq/L) 4.1 Chloride (100 - 108 mEq/L) 97 L Carbon Dioxide (21 - 33 mEq/l) 27 Anion Gap (0 - 20) 13 BUN (7 - 18 mg/dL) 54 H Creatinine (0.6 - 1.3 mg/dL) 4.5 H Glomerular Filtr Rate (70 - 80) 12.9 L Glucose (70 - 110 mg/dL) 200 H Calcium (8.0 - 10.5 mg/dL) 9.6 Phosphorus (2.5 - 4.9 MG/DL) 3.9 C-Reactive Protein (<10.0 mg/L) 192.0 H Albumin (3.4 - 5.0 g/dL) 3.20 L Prealbumin (16.0 - 40.0 mg/dL) 14.3 L 13.1 L Laboratory Tests 05/23 05/22 05/22 1300 0535 0535 Hematology WBC (4.5 - 11.0 x10 3/uL) 9.7 12.5 H RBC (4.00 - 5.60 x10 6/uL) 3.31 L 3.42 L Hgb (12.5 - 16.9 g/dL) 9.5 L 9.9 L Hct (37.5 - 50.7 %) 29.6 L 31.1 L MCV (81.0 - 99.0 fL) 89.4 90.9 MCH (27.0 - 33.0 pg) 28.7 28.9 MCHC (33.0 - 37.0 g/dL) 32.1 L 31.8 L RDW (11.5 - 14.5 %) 14.4 14.6 H Plt Count (150 - 400 x10 3/uL) 395 412 H MPV (7.0 - 9.0 fL) 8.3 8.6 Neut % (Auto) (56.0 - 77.0 %) 78.9 H 75.3 Lymph % (Auto) (14.0 - 32.0 %) 7.0 L 7.6 L Dolores % (Auto) (4.8 - 9.0 %) 7.2 9.8 H Eos % (Auto) (0.3 - 3.7 %) 5.9 H 6.3 H Baso % (Auto) (0.0 - 2.0 %) 0.4 0.4 Neut # (Auto) (2.0 - 7.6 x10 3/uL) 7.67 H 9.40 H Lymph # (Auto) (1.0 - 3.8 x10 3/uL) 0.68 L 0.95 L Dolores # (Auto) (0.1 - 0.8 x10 3/uL) 0.70 1.23 H Eos # (Auto) (0.0 - 0.2 x10 3/uL) 0.57 H 0.79 H Baso # (Auto) (0.0 - 0.2 x10 3/uL) 0.04 0.05 Abs Immat Gran (auto) (0.00 - 0.03 x10 3/uL) 0 .06 H 0.08 H Add Manual Diff NO NO Immature Gran % (0.0 - 2.0 %) 0.6 0.6 Nucleated RBC % (0 - 0 %) 0.0 0.0 Nucleated RBCs # (Man) (0.0 - 0.1 x10 3/uL) 0.0 0 0.00 ESR Westergren (0 - 15 mm/hr) 114 H Microbiology: 05/24 1522 ASPIRATE: Body Fluid Culture - ORD 05/24 1522 ASPIRATE: Anaerobic Culture - ORD 05/24 1522 ASPIRATE: Gram Stain - ORD 05/24 1146 ASPIRATE: Body Fluid Culture - RES 05/24 1146 ASPIRATE: Anaerobic Culture - RES 05/24 1146 ASPIRATE: Gram Stain - RES Vital Signs: Date Time Temp Pulse Resp B/P B/P Pulse O2 O2 F low FiO2 Mean Ox Delivery Rate 05/24 1938 36.9 68 16 130/69 89.3 97 Room air 05/24 1536 37.2 70 18 136/71 92.8 95 Room air 05/24 0724 37.2 60 18 134/64 87.3 93 Room air 05/24 0115 37.1 64 17 144/69 93.8 97 Room air 05/24 0700 05/23 2300 05/23 1500 Intake Total 240.00 Output Total 2300 Balance 240.00 -2300 Intake, IV 120.00 Intake, Oral 120 Number 1 Bowel Movements Number Voids 1 Output, 2300 Hemodialysis Current Medications Sig/Tatum Start time Last Medication Dose Route Stop Time Status Admin Hydrocodone Bitart/ 1 TAB Q4H PRN PRN 05/24 14 15 AC 05/24 Acetaminophen PO 06/10 1200 2158 Sertraline HCl 25 MG BEDTIME 05/23 2100 AC 05/12 3 PO 06/22 2059 2059 Albumin Human 12.5 GM ASDIR PRN 05/23 1415 AC IV 06/23 1413 Lidocaine HCl 0.5 ML ASDIR PRN 05/23 1415 CKD I-DERMAL 06/23 1413 Mannitol 12.5 GM ASDIR PRN 05/23 1415 AC IV 06/23 1413 Sodium Chloride 2,000 ML ASDIR PRN 05/23 1415 A C 05/23 IV 06/23 1413 1439 Sodium Chloride 10 ML ASDIR PRN 05/23 1415 AC 0 05/23 IV 06/22 1414 1440 Sodium Chloride 250 ML ASDIR PRN 05/23 1415 AC IV 06/22 1414 Piperacillin Sod/ 3.375 GM Q12H 05/23 1300 AC 0 05/24 Tazobactam Sod IV 05/30 1259 1421 Sodium Chloride 100 ML Collagenase 1 APPLIC DAILY 05/22 899 AC 05/24 TOPICAL 06/21 0859 0827 Lidocaine 1 PATCH DAILY 05/21 899 AC 05/24 TOPICAL 06/20 0859 0827 Amitriptyline HCl 10 MG BEDTIME 05/20 2099 AC 0 05/24 PO 06/19 Triamcinolone 40 MG PROCEDURE 05/20 1944 CKD Acetonide IM 06/20 1943 Aspirin 81 MG DAILY 05/20 899 AC 05/24 PO 06/19 1300 0827 Clopidogrel Bisulfate 75 MG DAILY 05/20 899 AC 05/24 PO 06/19 1300 0829 Furosemide 40 MG DAILY 05/20 899 AC 05/24 PO 06/19 1300 0826 Polyethylene Glycol 17 GM DAILY 05/20 899 AC 0 05/21 PO 06/19 1300 1016 Senna 1 TAB DAILY 05/20 899 CKD 05/21 PO 06/19 1300 1015 Venlafaxine HCl 75 MG DAILY 05/20 899 AC 05/24 PO 06/19 1300 0826 Acetaminophen 650 MG Q6H PRN PRN 05/20 0845 AC PO 06/19 0844 Hydralazine HCl 10 MG Q6H PRN PRN 05/20 0845 A C PO 06/19 0844 Ondansetron HCl 4 MG TID PRN PRN 05/20 0845 AC SL 06/19 0844 Heparin Sodium 5,000 UNIT Q8H 05/19 2199 AC SUBQ 06/19 1300 2100 Epoetin Donny-epbx 4,000 UNIT TuThSa@2100 05/19 2099 AC 05/24 SUBQ 06/19 1300 205 Gabapentin 300 MG BEDTIME 05/19 2099 AC 05/24 PO 06/19 1300 2059 Metoprolol Tartrate 25 MG BID 05/19 2099 AC PO 06/19 1300 2100 Trazodone HCl 150 MG BEDTIME 05/19 2099 AC 05/12 3 PO 06/19 1300 2100 Hydrocodone Bitart/ 1 TAB Q4H PRN PRN 05/19 201 5 DC 05/20 Acetaminophen PO 07/20 1300 2244 Zolpidem Tartrate 5 MG BEDTIME PRN PRN 05/19 20 00 AC 05/24 PO 06/19 1300 2059 Recent Impressions-Last 72 Hrs CAT SCAN - CT LOWER EXTRM W/O C RT 05/23 1728 Report Impression - Status: SIGNED Entered: 05/23/2020 1806 IMPRESSION: Above the knee amputation changes wi th complex soft tissue fluid collection at the stump site. There is los s of fatty medullary density at the stump site. Osteomyelitis is not excluded. Correlate with MRI as clinically indicated. SL: SG-H Impression By: [email or web address] - Dominic Mena M.D. ULTRASOUND - USG NDL PLACEMENT (Bxg/Asp) 05/24 1 434 Report Impression - Status: SIGNED Entered: 05/24/2020 1515 IMPRESSION: 1. Technically successful ultrasound-guided aspi ration of a right knee stump collection. Impression By: [email or web address] - Paloma Arvizu D.O. Vital Signs Date Temp Pulse Resp B/P B/P Mean Pulse Ox FiO2 05/24 36.9-37.2 60-70 16-18 130-144/64-71 87.3- 93.8 93-97 Last Documented: Result Date Time Pulse Ox 97 05/24 1937 B/P 130/69 05/24 1937 B/P Mean 89.3 05/24 1937 O2 Delivery Room air 05/24 1937 Temp 36.9 05/24 1937 Pulse 68 05/24 1937 Resp 16 05/24 1937 24 hour I O ending at 0700: 05/24 0700 05/23 1900 Intake Total 240.00 Output Total 2300 Balance 240.00 -2300 Intake, IV 120.00 Intake, Oral 120 Number 1 Bowel Movements Number Voids 1 Output, 2300 Hemodialysis PATIENT WEIGHT: Weight (lb): 171 Weight (oz): 12.16 Weight (kg): 77.909 Physical Exam General appearance: alert, awake Neck: no JVD Cardiovascular: regular rate rhythm Respiratory: aerating well, clear to auscultatio n Abdomen: non-tender, normal bowel sounds, soft Extremities: Extremities: RT AKA Neuro/CUSTODIAN MANAGER: alert, oriented x 3 Skin: dry, normal temperature Psychiatry: depressed, normal judgement/insight Diagnosis, Assessment Plan Free Text DxA P Notes Free text DxA P notes: Assessment: 1.Mechanical fall 2.Traumatic brain injury with subdural hematoma 3. Right AKA pulmonary 2020 4. IMpaired mobility/Impaired gait 5. History of depression 6. Generalized weakness 7. Phantom pain 8. End-stage renal disease on hemodialysis 3 day s a week 9. Anemia 10. History of coronary artery disease, hyperten willy, and hyperlipidemia 05/21/20 Patient's doing well Sitting in a wheelchair Participating in therapy Family visiting at the bedside 05/22/20 Patient participating in therapy daily Reportedly patient is depressed He answered all my questions but seems to be sad May 23, 2020 No leukocytosis, anemia Continue to monitor renal function CT of the right femur without contrast: [id number]-[id number] amputation changes with complex soft tissue fluid collection at the stump site. There is loss of fatty medullary density at the stump site. Osteomyelit is is not excluded. Correlate with MRI. Continue wound care May 24, 2020 The patient underwent ultrasound-guided aspirati on of superficial fluid collection Plan of care: -Continue with comprehensive inpatient rehabilit [facility] rehab team -Pain control -Fall precaution -DVT prophylaxis subcu heparin -GI prophylaxis patient currently on Protonix -Pain control as pain management -Seizure precaution patient on Keppra -Continues present medications -Monitor labs -Plan of care discussed with the patient, galina palma's nurse, and Dr. Cavazos. Danny Cavazos 05/26/20 2314: Attestations Physician Attestation Agree w/findings plan: Patient seen and examined on 05/24/2020. I agree with the findings and plan as documented by JOSE Meek. Plan of care coordinat ed with JOSE Meek. Pertinent labs, Imaging, and store sales consultant evaluations review ed. 74-year-old male was admitted to inpatient rehab for comprehensive rehabilitation. He underwent ultrasound- guided aspiration of superficial fluid collection. We will continue with comprehensive inpatient rehabilitation was per rehab team, pain control, fall precautions, DVT prophylaxis with subcu heparin, GI prophylaxis with Protonix, pain control as pain management, seizure precautions with Keppra, and present medications . We will continue to monitor his labs. Electronically Signed by Javier Meek NP on 0 05/26/20 at 0233 Electronically Signed by Danny Keith MD 05/26/20 at 6522 [facility] #:[id number] END OF REPORT 2020-05-24 21:09:00-00:00 [facility] ([facility]) Wound Care Progress Note REPORT#:[id number] REPORT STATUS: Signed DATE:05/24/20 TIME: 2108 PATIENT: DARIEN GROSSMAN UNIT #: [id number] ROOM/BED: [facility] : 45 AGE: 74 SEX: M ATTEND: Rosa Curtis MD ADM AUTHOR: Shaila Gilbert * ALL edits or amendments must be made on the C-Note/computer document * Subjective Chief Complaint: FU R AKA wounds Objective General Medications: Active Meds + DC'd Last 24 Hrs Hydrocodone Bitart/Acetaminophen 1 TAB Q4H PRN P RN PO Sertraline HCl 25 MG BEDTIME PO Albumin Human 12.5 GM ASDIR PRN IV Lidocaine HCl 0.5 ML ASDIR PRN I-DERMAL (CKD) Mannitol 12.5 GM ASDIR PRN IV Sodium Chloride 2,000 ML ASDIR PRN IV Sodium Chloride 10 ML ASDIR PRN IV Sodium Chloride 250 ML ASDIR PRN IV Piperacillin Sod/Tazobactam Sod 3.375 GM Q12H IV Sodium Chloride 100 ML Collagenase 1 APPLIC DAILY TOPICAL Lidocaine 1 PATCH DAILY TOPICAL Amitriptyline HCl 10 MG BEDTIME PO Triamcinolone Acetonide 40 MG PROCEDURE IM (CKD) Aspirin 81 MG DAILY PO Clopidogrel Bisulfate 75 MG DAILY PO Furosemide 40 MG DAILY PO Polyethylene Glycol 17 GM DAILY PO Senna 1 TAB DAILY PO (CKD) Venlafaxine HCl 75 MG DAILY PO Acetaminophen 650 MG Q6H PRN PRN PO Hydralazine HCl 10 MG Q6H PRN PRN PO Ondansetron HCl 4 MG TID PRN PRN SL Heparin Sodium 5,000 UNIT Q8H SUBQ Epoetin Donny-epbx 4,000 UNIT TuThSa@2100 SUBQ Gabapentin 300 MG BEDTIME PO Metoprolol Tartrate 25 MG BID PO Trazodone HCl 150 MG BEDTIME PO Hydrocodone Bitart/Acetaminophen 1 TAB Q4H PRN P RN PO (DC) Zolpidem Tartrate 5 MG BEDTIME PRN PRN PO Nutrition assessment: The data set between the solid lines has been im ported from the dietitian's assessment. Any exceptions have been noted under Provider comments. BMI Calculated: 25.4 Nutrition related diagnosis: Nutrition diagnosis details: Nutrition problem: Inadequate oral intake Nutrition etiology: Decreased/poor appetite, Dis likes hospital food Nutrition signs and symptoms: Consuming 50-75% f or 4 days Nutrition prescription: 1. C ontinue renal diet 2. Add Nepro 1x/day 3. Encourage food ordering and monitor fo od intake 3. [place] food preferences within diet and encourage oral intake >75% Dietitian name: Haley Shannon, Development Editor Assessment completed: 05/20/20 Provider comments on imported dietitian assessme nt: Physical Exam General appearance: awake Skin: R AKA wound dehiscence on both medial late ral ends of stump ( abt 0.5x0.5x0.2 cm) w/ 50% slough. MInimal erythema @ medial aspect. Results Findings/Data: Microbiology: Date/Time Procedure - Status Source Growth 05/24 1522 Body Fluid Culture - ORD ASPIRATE 05/24 1522 Anaerobic Culture - ORD ASPIRATE 05/24 1522 Gram Stain - ORD ASPIRATE 05/24 1146 Body Fluid Culture - RES ASPIRATE 05/24 1146 Anaerobic Culture - RES ASPIRATE 05/24 1146 Gram Stain - RES ASPIRATE Recent Impressions: ULTRASOUND - USG NDL PLACEMENT (Bxg/Asp) 05/24 1 434 Report Impression - Status: SIGNED Entered: 05/24/2020 1515 IMPRESSION: 1. Technically successful ultrasound-guided aspi ration of a right knee stump collection. Impression By: [email or web address] - Paloma Arvizu D.O. Diagnosis, Assessment Plan Free Text A P: Right AKA stump cellulitis, w superficial wound dehiscence- ( sp aspiration culture by IR of loculated f luid collection ) ; Superficial cx: Pseudomonas (R- Merrem), and CoN. On IV Zosyn per ID. Santyl with xeroform to dehisced sites , cover w ith foam dressing daily. May start WVAC to sites once less than 20% slough. [ x] Optimize Nutrition and Glycemic Control [ x] Pressure relieving inte rventions (Low Air Mattress, Prevalon boot, Turn q2h ) [ x] Nursing to implement impaired skin integrit y care plan as per skin care protocol Coordinattion of care D/W [ ] Other MD's [ x ] P atient [ ] Family [ ] Nursing [ ] Case Management at 2119 RPT #:[id number] END OF REPORT 2020-05-24 15:23:00-00:00 [facility] ([facility]) Brief Op Note REPORT#:[id number] REPORT STATUS: Signed DATE:05/24/20 TIME: 1523 PATIENT: DARIEN GROSSMAN UNIT #: [id number] ROOM/BED: [place] [address] : 45 AGE: 74 SEX: M ATTEND: Sekou Curtis MD ADM AUTHOR: Luis Chaves PA-C * ALL edits or amendments must be made on the el [employer]/computer document * Op/Inv Proc Note - Brief Pre-procedure diagnosis: Surgical site fluid collection Post-procedure diagnosis: same as pre procedure dx Procedures performed: ULTRASOUND GUIDED ASPIRATION OF SUPERFICIAL FLUI D COLLECTION Primary Surgeon: Jenny Chaves PA-C Harness Puller(s): none Anesthesia: local anesthesia Findings: The risks and benefits of lee perficial fluid collection aspiration were discussed with the patient and consent was granted . The risk of bleeding, infection, and injury to surrounding structures was discussed. The patient s questions regarding the procedure were answered. Darron vallejo Harness Puller directly supervised by Sriram Arvizu DO for the duration of the procedur e A time out was performed. With the patie nt lying supine, the area was examined with ultrasound, an appropri ate site was identified and an ultrasound image was recorded in PACs. The patient was prepped and dr aped in the usual sterile fashion. 1% lidocaine was used to anesthetize th e needle tract and procedure site. An 18G spinal needle and syringe w as used to access the collection under ultrasound guidance. Images were stored in PACS. Aspiration yielded 15 cc of bloody fluid. There were no complications. The s ample was sent for laboratory analysis. The patient left the procedure room in good condition. Complications: none Estimated blood loss in ml's: Minimal Specimens removed/altered: 15 cc bloody fluid Electronically Signed by Luis Chaves PA-C on 0 05/24/20 at 1526 RPT #:[id number] END OF REPORT 2020-05-24 15:15:00-00:00 [facility] ([facility] Rehab Team Conference REPORT#:[id number] REPORT STATUS: Signed DATE:05/24/20 TIME: 1515 PATIENT: DARIEN GROSSMAN UNIT #: [id number] ROOM/BED: [place] [address] : 45 AGE: 74 SEX: M ATTEND: Rosa Curtis MD ADM AUTHOR: Sekou Curtis MD * ALL edits or amendments must be made on the el [employer]/computer document * Rehabilitation Team Conference Weekly Team Conference Team conf information: Date of conference: 05/24/20 Conference type: Initial Conference scribe: ADONAY Mendes INTERDISCIPLINARY TEAM MEETING PARTICIPANTS: TITLE NAME MD Sekou Curtis MD RN Yesenia Reyes, RN PT Shaila Montalvo, PT OT Celestino Simpson, OT SAM/SAM Garay, IT COMPLIANCE ANALYST [facility] ADONAY Mendes Staff (8) Staff (9) Staff (10) Staff (11) OTHER NAME CREDENTIALS 1 BREANN FRAZIERASTER DIETITIAN 2 3 4 FUNCTIONAL CHANGE: TYPE ADMISSION TOTAL INTERIM TOTAL CHANGE Self care 27 34 7 Transfer 25 34 9 Mobility 12 32 20 Wheelchair distance: Mobility description: BOWEL AND BLADDER STATUS: Bowel continence admission rating: Always contin ent Bladder continence admission rating: Always cont inent Bowel and bladder team conference update: CONTIN ENT INTERDISCIPLINARY TEAM UPDATES: PEREZ team conference update: PT AOX4, ON RM AIR. NO C/O PAIN/BREATHING PROBLEMS. CONTINENT TO BOTH BOWEL AND BLADDER, ON DILAYSIS MWF, AV FISTULA TO LEFT UPPER EXTREMITY. PT WITH RIGHT AKA. WILL CONTINUE TO M ONITOR PT. SAFETY AND FALL PRECAUTION IN PLACE PT team conference update: PROGRESS: GOOD. BARRI ERS: ENDURANCE, BALANCE. DME: NONE. D/C:HHPT. PRIMARY MODE OF AMBULATION: WC 4 00 FT, IND. OT team conference update: PT PROGRESS T OWARDS GOALS, PT'S ADL REQ MIN A TO I. CON'T SKILLED HH OT. ST team conference update: PT PRESENTS W ITH MILD COGNITIVE LINGUISTIC DEFICITS IN THE AREAS OF ATTENTION, E XPRESSION, MEMORY, THOUGHT ORGANIZATION AND INSIGHT. THE PT IS PROVIDING INCONSISTENT INFO TO MULTIPL E THERAPISTS. CM or SW team conference upd ate: PATIENT LIVES AT HOME ALONE. HE HAS A DAUGHTER BUT HIS FRIEND IS REPORTED TO BE THE POA. HE HAS A CUSTOM WHEELCHAIR THAT HE OWNS. HIS WOUND CULTURE WAS POSITVE AND HE IS CU RRENTLY ON IV ZOSYN. HE GOES TO IN [place]. Other discipline update 1: P O INTAKE: 50-100%OF A RENAL DIET WITH NEPOR AT LUNCH Other discipline update 2: Other discipline update 3: REHAB DC GOALS: Patient's identified discharge goal: PT WANT TO BE ABLE TO FUNCTION INDEPENDENTLY BY THE END OF REHAB STAY Eating discharge goal: Independent (6) Shower/bathe self discharge goal: Independent ( 6) Upper body dressing discharge goal: Independent (6) Lower body dressing discharge goal: Independent (6) Chair/bed to chair transfer discharge goal: Ind ependent (6) Transfer on/off toilet or commode discharge goa l: Independent (6) Walking 50 feet with two turns discharge goal: Independent (6) Walking 150 feet discharge goal: Substantial/ma x asst (2) Four steps discharge goal: Not applicable Twelve steps discharge goal: Not applicable [place] 150 feet discharge goal: Independent ( 6) Goal 1 - Bowel function: PT WILL REMAIN CONTINEN T FOR BOWEL FUNCTION DURING REHAB STAY Goal 2 - Bladder function: P T WILL REMAIN CONTINENT FOR BLADDER FUNCTION DURING REHAB STAY Nursing goal 3: PT WILL BE FREE OF SKIN BREAKDOW N DURING REHAB STAY Nursing goal 4: PT WILL BE FREE OF FALL DURING R EHAB STAY Nursing goal 5: DISCHARGE PLANNING: Barriers to discharge: Fall risk, Caregiver, END URANCE Strategies for D/C barriers: Fall recovery train ing, THER EX, BALANCE EX, ADL TRAINING Estimated length of stay in days: 12 Anticipated discharge date: 05/31/20 Discharge date adjustment comment: Identified financial and/or community resource n eeds: Family/Caregiver training da ys: PT AND FAMILY WILL BE EDUCATED ON THE USE OF THE GAIT BELT TO LOWER THE PATIENT TO THE FL OOR IN THE EVENT OF LOSS OF BALANCE TO PREVENT FALL AND/OR INJURY, FAMILY TRAINING: TO BE SCHDUELD BY THERAPY [place] day (DATE): 05/30/20 Expected discharge destination: Home Anticipated services upon di scharge: Home health, Occupational therapy, Physical therapy, Speech therapy, Nurses aide, Nursing Anticipated discharge equipment: None Impairment group: brain dysfunction NOTE Document ONLY ONE Impairment Group Brain dysfunction: traumatic, closed injury Etiologic diagnosis: Subdural hematoma/TBI Review of comorbidities: Falls-frequent, ESRD on HD, CAD, Dyslipidemia, HTN, Anemia of chronic disease, Recent Right AKA 04/03, Hyperkalemia, stump pain Review/Recommendations Attestation: This interdisciplinary team conference was led siena mcgill and I concur with all decisions made during the team conference and re visions to the individualized overall plan of care. IRF cont stay criteria SEE MY NOTE at 1515 RPT #:[id number] END OF REPORT 2020-05-24 14:42:00-00:00 [facility] ([facility]) Nephrology Progress Note REPORT#:[id number] REPORT STATUS: Signed DATE:05/24/20 TIME: 1442 PATIENT: DARIEN GROSSMAN UNIT #: [id number] ROOM/BED: [place] [address] : 45 AGE: 74 SEX: M ATTEND: Rosa Curtis MD ADM AUTHOR: Merissa Dillon MD * ALL edits or amendments must be made on the el [employer]/computer document * Subjective Chief Complaint: Patient out of floor for a procedure. Chart revi ewed and events noted from RN Objective General VS/I O: Vital Signs: Date Time Temp Pulse Resp B/P B/P Pulse O2 O2 F low FiO2 Mean Ox Delivery Rate 05/24 1937 98.4 68 16 130/69 89.3 97 Room air 05/24 1536 99.0 70 18 136/71 92.8 95 Room air 05/24 0724 99.0 60 18 134/64 87.3 93 Room air 05/24 0115 98.8 64 17 144/69 93.8 97 Room air 24 hour I O ending at 0700: 05/24 0700 05/23 1900 Intake Total 240.00 Output Total 2300 Balance 240.00 -2300 Intake, IV 120.00 Intake, Oral 120 Number 1 Bowel Movements Number Voids 1 Output, 2300 Hemodialysis PATIENT WEIGHT: Weight (lb): 171 Weight (oz): 12.16 Weight (kg): 77.909 Medications Active Meds + DC'd Last 24 Hrs Hydrocodone Bitart/Acetaminophen 1 TAB Q4H PRN P RN PO Sertraline HCl 25 MG BEDTIME PO Albumin Human 12.5 GM ASDIR PRN IV Lidocaine HCl 0.5 ML ASDIR PRN I-DERMAL (CKD) Mannitol 12.5 GM ASDIR PRN IV Sodium Chloride 2,000 ML ASDIR PRN IV Sodium Chloride 10 ML ASDIR PRN IV Sodium Chloride 250 ML ASDIR PRN IV Piperacillin Sod/Tazobactam Sod 3.375 GM Q12H IV Sodium Chloride 100 ML Collagenase 1 APPLIC DAILY TOPICAL Lidocaine 1 PATCH DAILY TOPICAL Amitriptyline HCl 10 MG BEDTIME PO Triamcinolone Acetonide 40 MG PROCEDURE IM (CKD) Aspirin 81 MG DAILY PO Clopidogrel Bisulfate 75 MG DAILY PO Furosemide 40 MG DAILY PO Polyethylene Glycol 17 GM DAILY PO Senna 1 TAB DAILY PO (CKD) Venlafaxine HCl 75 MG DAILY PO Acetaminophen 650 MG Q6H PRN PRN PO Hydralazine HCl 10 MG Q6H PRN PRN PO Ondansetron HCl 4 MG TID PRN PRN SL Heparin Sodium 5,000 UNIT Q8H SUBQ Epoetin Donny-epbx 4,000 UNIT TuThSa@2100 SUBQ Gabapentin 300 MG BEDTIME PO Metoprolol Tartrate 25 MG BID PO Trazodone HCl 150 MG BEDTIME PO Hydrocodone Bitart/Acetaminophen 1 TAB Q4H PRN P RN PO (DC) Zolpidem Tartrate 5 MG BEDTIME PRN PRN PO Physical Exam Head/eyes: atraumatic, normocephalic Cardiovascular: regular rate and rhythm, pedal p ulses present Respiratory: clear to auscultation, normal breat h sounds Abdomen: normal bowel sounds, soft Extremities: no edema, Rt AKA Results Radiology data: Recent Impressions: ULTRASOUND - USG NDL PLACEMENT (Bxg/Asp) 05/24 1 434 Report Impression - Status: SIGNED Entered: 05/24/2020 0385 IMPRESSION: 1. Technically successful ultrasound-guided aspi ration of a right knee stump collection. Impression By: [email or web address] Pearl Arvizu D.O. Diagnosis, Assessment Plan Hospital course to date: 1. ESRD 2. RT AKA stump infection 3. Hypertension 4. Status post fall and acute SDH 5. Anemia of chronic kidney disease 6. Coronary artery disease Plan -HD MWF. HD in am -Blood pressure currently stable -Renal diet -Hemoglobin better. On Epogen 3 times weekly -Phos has been stable. -Rehab f/u. Free Text A P: 1. ESRD 2. AVF infiltration 3. Hypertension 4. Status post fall and acute SDH 5. Anemia of chronic kidney disease 6. Coronary artery disease Plan -HD MWF. HD today. Tolerating well -Blood pressure currently stable -Renal diet -Hemoglobin better. On Epogen 3 times weekly -Phos has been stable. -Psych f/u. at 2259 RPT #:[id number] END OF REPORT 2020-05-24 14:09:00-00:00 [facility] ([facility]) Clinical Note REPORT#:[id number] REPORT STATUS: Signed DATE:05/24/20 TIME: 1409 PATIENT: DARIEN GROSSMAN UNIT #: [id number] ROOM/BED: [place] [address] : 45 AGE: 74 SEX: M ATTEND: Rosa Curtis MD ADM AUTHOR: Danny Keith MD * ALL edits or amendments must be made on the el [employer]/computer document * Clinical Note Note: 74-year-old male 1. Fall 2. Subdural hematoma 3. TBI (traumatic brain injury) 4. History of right above knee amputation (Onse t: 04/03/20) 5. ESRD on dialysis 6. History of coronary artery disease 7. History of coronary angioplasty with inserti on of stent 8. HLD (hyperlipidemia) 9. Anemia of chronic disease 10. Frequent falls 11. Hypoalbuminemia 12. Leukocytosis 13. Limb pain 14. Impaired functional mobility, balance, gait , and endurance 05/24: Underwent ultrasound guided aspiration of superficial fluid collection and 15 cc of bloody fluid removed. Continue with pain control and IV antibiotics. Continue with renal diet. Blood pre ssure is stable. Plan We will continue with telemetry, BP control, gly cemic control, pain control, electrolyte control, DVT/GI prophylaxis, repeat labs. PT/OT/ST. Wound care. Electronically Signed by Danny Keith MD n 06/01/20 at 1316 RPT #:[id number] END OF REPORT 2020-05-24 11:00:00-00:00 [facility]) Pain Management Progress Note REPORT#:[id number] REPORT STATUS: Signed DATE:05/24/20 TIME: 1100 PATIENT: DARIEN GROSSMAN UNIT #: [id number] ROOM/BED: [place] [address] : 45 AGE: 74 SEX: M ATTEND: Rosa Curtis MD ADM AUTHOR: Sohail Wells * ALL edits or amendments must be made on the C-Note/computer document * Subjective Chief complaint: Patient seen and examined. Chart and VIJAYA wilkes. Patient is having some right stump disco mfort, we discussed findings of his CT scan with the patient and infectious disease ser vices. Patient being seen for Left thigh pain, lateral femoral cutaneous neuralgia, Right AKA pain, Peripheral neuropathy, phantom l imb pain right lower extremity, Patient states symptoms are manageable with use of current medications. No fever/chills, chest pain, dyspnea, no emesis, pruritus, or hallucinations. 14-point ROS undertaken unremarkable except as n oted. Objective General VS/I O: Vital Signs Date Temp Pulse Resp B/P B/P Mean Pulse Ox FiO2 05/23-05/24 37.0-37.2 60-69 16-18 134-145/64-72 87.3-96.4 93-97 Last Documented: Result Date Time Pulse Ox 93 05/25 723 B/P 134/64 05/25 723 B/P Mean 87.3 05/25 723 O2 Delivery Room air 05/25 723 Temp 37.2 05/25 723 Pulse 60 05/25 723 Resp 18 05/25 723 24 hour I O ending at 0700: 05/24 0700 05/23 1900 Intake Total 240.00 Output Total 2300 Balance 240.00 -2300 Intake, IV 120.00 Intake, Oral 120 Number 1 Bowel Movements Number Voids 1 Output, 2300 Hemodialysis PATIENT WEIGHT: Weight (lb): 171 Weight (oz): 12.16 Weight (kg): 77.909 Medications: Active Meds + DC'd Last 24 Hrs Sertraline HCl 25 MG BEDTIME PO Albumin Human 12.5 GM ASDIR PRN IV Lidocaine HCl 0.5 ML ASDIR PRN I-DERMAL (CKD) Mannitol 12.5 GM ASDIR PRN IV Sodium Chloride 2,000 ML ASDIR PRN IV Sodium Chloride 10 ML ASDIR PRN IV Sodium Chloride 250 ML ASDIR PRN IV Piperacillin Sod/Tazobactam Sod 3.375 GM Q12H IV Sodium Chloride 100 ML Collagenase 1 APPLIC DAILY TOPICAL Cefepime HCl 1 GM Q12H IV (DC) Sodium Chloride 10 ML Miscellaneous Information 1 EACH ASDIR IV (DC) Lidocaine 1 PATCH DAILY TOPICAL Amitriptyline HCl 10 MG BEDTIME PO Triamcinolone Acetonide 40 MG PROCEDURE IM (CKD) Aspirin 81 MG DAILY PO Clopidogrel Bisulfate 75 MG DAILY PO Furosemide 40 MG DAILY PO Polyethylene Glycol 17 GM DAILY PO Senna 1 TAB DAILY PO (CKD) Venlafaxine HCl 75 MG DAILY PO Acetaminophen 650 MG Q6H PRN PRN PO Hydralazine HCl 10 MG Q6H PRN PRN PO Ondansetron HCl 4 MG TID PRN PRN SL Heparin Sodium 5,000 UNIT Q8H SUBQ Buspirone HCl 10 MG BEDTIME PO (DC) Epoetin Donny-epbx 4,000 UNIT TuThSa@2100 SUBQ Gabapentin 300 MG BEDTIME PO Metoprolol Tartrate 25 MG BID PO Trazodone HCl 150 MG BEDTIME PO Hydrocodone Bitart/Acetaminophen 1 TAB Q4H PRN P RN PO Zolpidem Tartrate 5 MG BEDTIME PRN PRN PO Physical Exam General appearance: alert, awake, oriented, no a cute distress, normal speech Head/eyes: atraumatic, normocephalic, normal con junctiva/sclera ENT: normal pharynx, moist mucosal membranes Neck: full range of motion, non-tender, supple/n o meningismus Cardiovascular: regular rate rhythm Respiratory: clear to auscultation, no distress Abdomen quadrants LLQ normal bowel sounds, LUQ normal roberto l sounds, RLQ normal bowel sounds, RUQ normal bowel sounds Extremities: moves all, no edema, pedal pulses, right AKA Neuro/CUSTODIAN MANAGER: no motor deficits, no sensory deficit s, CNII-XII grossly intact Skin: dry, intact, no rash Psychiatry: normal affect, normal mood Results Findings/data: Laboratory Tests: 05/23 05/23 1300 1300 Chemistry Sodium (134 - 147 mEq/L) 133 L Potassium (3.4 - 5.0 mEq/L) 4.1 Chloride (100 - 108 mEq/L) 97 L Carbon Dioxide (21 - 33 mEq/l) 27 Anion Gap (0 - 20) 13 BUN (7 - 18 mg/dL) 54 H Creatinine (0.6 - 1.3 mg/dL) 4.5 H Glomerular Filtr Rate (70 - 80) 12.9 L Glucose (70 - 110 mg/dL) 200 H Calcium (8.0 - 10.5 mg/dL) 9.6 Phosphorus (2.5 - 4.9 MG/DL) 3.9 Albumin (3.4 - 5.0 g/dL) 3.20 L Prealbumin (16.0 - 40.0 mg/dL) 14.3 L Hematology WBC (4.5 - 11.0 x10 3/uL) 9.7 RBC (4.00 - 5.60 x10 6/uL) 3.31 L Hgb (12.5 - 16.9 g/dL) 9.5 L Hct (37.5 - 50.7 %) 29.6 L MCV (81.0 - 99.0 fL) 89.4 MCH (27.0 - 33.0 pg) 28.7 MCHC (33.0 - 37.0 g/dL) 32.1 L RDW (11.5 - 14.5 %) 14.4 Plt Count (150 - 400 x10 3/uL) 395 MPV (7.0 - 9.0 fL) 8.3 Neut % (Auto) (56.0 - 77.0 %) 78.9 H Lymph % (Auto) (14.0 - 32.0 %) 7.0 L Dolores % (Auto) (4.8 - 9.0 %) 7.2 Eos % (Auto) (0.3 - 3.7 %) 5.9 H Baso % (Auto) (0.0 - 2.0 %) 0.4 Neut # (Auto) (2.0 - 7.6 x10 3/uL) 7.67 H Lymph # (Auto) (1.0 - 3.8 x10 3/uL) 0.68 L Dolores # (Auto) (0.1 - 0.8 x10 3/uL) 0.70 Eos # (Auto) (0.0 - 0.2 x10 3/uL) 0.57 H Baso # (Auto) (0.0 - 0.2 x10 3/uL) 0.04 Abs Immat Gran (auto) (0.00 - 0.03 x10 3/uL) 0. 06 H Add Manual Diff NO Immature Gran % (0.0 - 2.0 %) 0.6 Nucleated RBC % (0 - 0 %) 0.0 Nucleated RBCs # (Man) (0.0 - 0.1 x10 3/uL) 0. 00 Recent Impressions: CAT SCAN - CT LOWER EXTRM W/O C RT 05/23 5768 Report Impression - Status: SIGNED Entered: 05/23/2020 0571 IMPRESSION: Above the knee amputation changes wi th complex soft tissue fluid collection at the stump site. There is los s of fatty medullary density at the stump site. Osteomyelitis is not excluded. Correlate with MRI as clinically indicated. SL: SG-H Impression By: [email or web address] - Dominic Mena M.D. Diagnosis, Assessment Plan Free text A P: A/P: Patient is a 74 year old male presenting with: Past medical history: Subdural hematoma, CAD, en d-stage renal disease on HD, hypertension, hyperlipidemia, septic art hritis of prosthesis of previous right TKA, depression Past surgical history: Right TKR, right AKA, cor onary stents Social history: Negative for alcohol, tobacco, i llicit drug use Family history: Not relevant Allergies: Penicillin, iodine Left thigh pain, lateral femoral cutaneous neura lgia -We offered to perform a left lateral femoral cu taneous nerve block to see if this helps with the pain. Patient declined -05/24-decrease Otis 10/325 to Otis 7.5/325 james ry 4 as needed -Lidoderm patch to left thigh daily -Otis 7.5/325 mg oral every 4 hours as needed f or pain -manageable Right AKA discomfort -05/23/2020-CT lower extremity - Above th e knee amputation changes with complex soft tissue fluid collection at the stum p site. There is loss of fatty medullary density at the stump site. Osteomyelitis is not excluded. C orrelate with MRI as clinically indicated. -IV antibiotics , appreciate infectious disease input -Pain medications as outlined above Peripheral neuropathy, phantom limb pain right l ower extremity -Gabapentin 300 mg oral at bedtime -amitriptyline 10 mg oral at bedtime -stable Antalgic/impaired gait -PT/OT -Gait training, improve endurance and strength -Transfer training -PMR following Falls -Fall precautions End-stage renal disease on hemodialysis -Nephrology following Subdural hematoma -Monitor mental status with opioids and other se dative medications Depression -monitoring Constipation -Monitor closely while patient is using opioid n arcotics -MiraLAX 17 g p.o. daily -Senna 1 tab p.o. daily All pertinent diagnostics/labs from the last 24 hours and during the course of the admission were reviewed. Plan discussed with the patient and the nurse. A ll questions were answered. Patient will be monitored for deleteriou s side effects associated with opioids and sedative medications. Me dications will be adjusted further clinical course. Risks versus benefits of opioid medications were reviewed to include, but not limited to respiratory depression, accid ental overdose, altered mental status, sudden , constipation which could result in bowel obstruction, seizures, withdrawal, dependency/addiction, risk for falls . Goals: Daily pain control. Case discussed with Dr Lofton whom agrees. 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: Total Prescriptions 28 Total Private Pay 0 Total Prescribers 4 Total Pharmacies 1 05/06/2020 1 05/06/2020 HYDROCODONE-ACETAMIN 10- 325 MG 30.0 7 [facility] SPA [id number] [facility] (1602) 0 42.86 MME Comm Ins [place] 04/20/2020 1 12/24/2019 ZOLPIDEM TARTRATE 10 MG TABLET 30.0 30 PE LAT [id number] [facility] (1602) 4 Comm Ins [place] 03/21/2020 1 12/24/2019 ZOLPIDEM TARTRATE 10 MG TABLET 30.0 30 PE LAT [id number] [facility] (1602) 3 Comm Ins [place] 02/20/2020 1 12/24/2019 ZOLPIDEM TARTRATE 10 MG TABLET 30.0 30 PE LAT [id number] [facility] ([id number]) 2 Comm Ins [place] 01/21/2020 1 12/24/2019 ZOLPIDEM TARTRATE 10 MG TABLET 30.0 30 PE LAT [id number] [facility] (1602) 1 Comm Ins [place] 12/24/2019 1 12/24/2019 ZOLPIDEM TARTRATE 10 MG TABLET 30.0 30 PE LAT [id number] [facility] ([id number]) 0 Comm Ins [place] 11/25/2019 1 07/07/2019 ZOLPIDEM TARTRATE 10 MG TABLET 30.0 30 PE LAT [id number] [facility] ([id number]) 5 Comm Ins [place] [id number] [phone]) [address] [address] at 1409 RPT #:[id number] END OF REPORT 2020-05-24 11:00:00-00:00 [facility]) Pain Management Progress Note REPORT#:[id number] REPORT STATUS: Signed DATE:05/24/20 TIME: 1100 PATIENT: DARIEN GROSSMAN UNIT #: [id number] ROOM/BED: [place] [address] : 45 AGE: 74 SEX: M ATTEND: Rosa Curtis MD ADM AUTHOR: Sohail Wells * ALL edits or amendments must be made on the el [employer]/computer document * Subjective Chief complaint: Patient seen and examined. Chart and VIJAYA reyes Patient is having some right stump disco mfort, we discussed findings of his CT scan with the patient and infectious disease ser vices. Patient being seen for Left thigh pain, lateral femoral cutaneous neuralgia, Right AKA pain, Peripheral neuropathy, phantom l imb pain right lower extremity, Patient states symptoms are manageable with use of current medications. No fever/chills, chest pain, dyspnea, no emesis, pruritus, or hallucinations. 14-point ROS undertaken unremarkable except as n oted. Objective General VS/I O: Vital Signs Date Temp Pulse Resp B/P B/P Mean Pulse Ox FiO2 05/23-05/24 37.0-37.2 60-69 16-18 134-145/64-72 87.3-96.4 93-97 Last Documented: Result Date Time Pulse Ox 93 05/24 0724 B/P 134/64 05/24 0724 B/P Mean 87.3 05/24 0724 O2 Delivery Room air 05/25 723 Temp 37.2 05/24 07 Pulse 60 05/24 0724 Resp 18 05/24 07 24 hour I O ending at 0700: 05/24 0700 05/23 1900 Intake Total 240.00 Output Total 2300 Balance 240.00 -2300 Intake, IV 120.00 Intake, Oral 120 Number 1 Bowel Movements Number Voids 1 Output, 2300 Hemodialysis PATIENT WEIGHT: Weight (lb): 171 Weight (oz): 12.16 Weight (kg): 77.909 Medications: Active Meds + DC'd Last 24 Hrs Sertraline HCl 25 MG BEDTIME PO Albumin Human 12.5 GM ASDIR PRN IV Lidocaine HCl 0.5 ML ASDIR PRN I-DERMAL (CKD) Mannitol 12.5 GM ASDIR PRN IV Sodium Chloride 2,000 ML ASDIR PRN IV Sodium Chloride 10 ML ASDIR PRN IV Sodium Chloride 250 ML ASDIR PRN IV Piperacillin Sod/Tazobactam Sod 3.375 GM Q12H I V Sodium Chloride 100 ML Collagenase 1 APPLIC DAILY TOPICAL Cefepime HCl 1 GM Q12H IV (DC) Sodium Chloride 10 ML Miscellaneous Information 1 EACH ASDIR IV (DC) Lidocaine 1 PATCH DAILY TOPICAL Amitriptyline HCl 10 MG BEDTIME PO Triamcinolone Acetonide 40 MG PROCEDURE IM (CKD) Aspirin 81 MG DAILY PO Clopidogrel Bisulfate 75 MG DAILY PO Furosemide 40 MG DAILY PO Polyethylene Glycol 17 GM DAILY PO Senna 1 TAB DAILY PO (CKD) Venlafaxine HCl 75 MG DAILY PO Acetaminophen 650 MG Q6H PRN PRN PO Hydralazine HCl 10 MG Q6H PRN PRN PO Ondansetron HCl 4 MG TID PRN PRN SL Heparin Sodium 5,000 UNIT Q8H SUBQ Buspirone HCl 10 MG BEDTIME PO (DC) Epoetin Donny-epbx 4,000 UNIT TuThSa@2100 SUBQ Gabapentin 300 MG BEDTIME PO Metoprolol Tartrate 25 MG BID PO Trazodone HCl 150 MG BEDTIME PO Hydrocodone Bitart/Acetaminophen 1 TAB Q4H PRN P RN PO Zolpidem Tartrate 5 MG BEDTIME PRN PRN PO Physical Exam General appearance: alert, awake, oriented, no a cute distress, normal speech Head/eyes: atraumatic, normocephalic, normal con junctiva/sclera ENT: normal pharynx, moist mucosal membranes Neck: full range of motion, non-tender, supple/n o meningismus Cardiovascular: regular rate rhythm Respiratory: clear to auscultation, no distress Abdomen quadrants LLQ normal bowel sounds, LUQ normal roberto l sounds, RLQ normal bowel sounds, RUQ normal bowel sounds Extremities: moves all, no edema, pedal pulses, right AKA Neuro/CUSTODIAN MANAGER: no motor deficits, no sensory deficit s, CNII-XII grossly intact Skin: dry, intact, no rash Psychiatry: normal affect, normal mood Results Findings/data: Laboratory Tests: 05/23 05/23 1300 1300 Chemistry Sodium (134 - 147 mEq/L) 133 L Potassium (3.4 - 5.0 mEq/L) 4.1 Chloride (100 - 108 mEq/L) 97 L Carbon Dioxide (21 - 33 mEq/l) 27 Anion Gap (0 - 20) 13 BUN (7 - 18 mg/dL) 54 H Creatinine (0.6 - 1.3 mg/dL) 4.5 H Glomerular Filtr Rate (70 - 80) 12.9 L Glucose (70 - 110 mg/dL) 200 H Calcium (8.0 - 10.5 mg/dL) 9.6 Phosphorus (2.5 - 4.9 MG/DL) 3.9 Albumin (3.4 - 5.0 g/dL) 3.20 L Prealbumin (16.0 - 40.0 mg/dL) 14.3 L Hematology WBC (4.5 - 11.0 x10 3/uL) 9.7 RBC (4.00 - 5.60 x10 6/uL) 3.31 L Hgb (12.5 - 16.9 g/dL) 9.5 L Hct (37.5 - 50.7 %) 29.6 L MCV (81.0 - 99.0 fL) 89.4 MCH (27.0 - 33.0 pg) 28.7 MCHC (33.0 - 37.0 g/dL) 32.1 L RDW (11.5 - 14.5 %) 14.4 Plt Count (150 - 400 x10 3/uL) 395 MPV (7.0 - 9.0 fL) 8.3 Neut % (Auto) (56.0 - 77.0 %) 78.9 H Lymph % (Auto) (14.0 - 32.0 %) 7.0 L Dolores % (Auto) (4.8 - 9.0 %) 7.2 Eos % (Auto) (0.3 - 3.7 %) 5.9 H Baso % (Auto) (0.0 - 2.0 %) 0.4 Neut # (Auto) (2.0 - 7.6 x10 3/uL) 7.67 H Lymph # (Auto) (1.0 - 3.8 x10 3/uL) 0.68 L Dolores # (Auto) (0.1 - 0.8 x10 3/uL) 0.70 Eos # (Auto) (0.0 - 0.2 x10 3/uL) 0.57 H Baso # (Auto) (0.0 - 0.2 x10 3/uL) 0.04 Abs Immat Gran (auto) (0.00 - 0.03 x10 3/uL) 0. 06 H Add Manual Diff NO Immature Gran % (0.0 - 2.0 %) 0.6 Nucleated RBC % (0 - 0 %) 0.0 Nucleated RBCs # (Man) (0.0 - 0.1 x10 3/uL) 0.0 0 Recent Impressions: CAT SCAN - CT LOWER EXTRM W/O C RT 05/23 6672 Report Impression - Status: SIGNED Entered: 05/23/2020 1806 IMPRESSION: Above the knee amputation changes wi th complex soft tissue fluid collection at the stump site. There is los s of fatty medullary density at the stump site. Osteomyelitis is not excluded. Correlate with MRI as clinically indicated. SL: SG-H Impression By: [email or web address] - Dominic Mena M.D. Diagnosis, Assessment Plan Free text A P: A/P: Patient is a 74 year old male presenting with: Past medical history: Subdural hematoma, CAD, en d-stage renal disease on HD, hypertension, hyperlipidemia, septic art hritis of prosthesis of previous right TKA, depression Past surgical history: Right TKR, right AKA, cor onary stents Social history: Negative for alcohol, tobacco, i llicit drug use Family history: Not relevant Allergies: Penicillin, iodine Left thigh pain, lateral femoral cutaneous neura lgia -We offered to perform a left lateral femoral cu taneous nerve block to see if this helps with the pain. Patient declined -05/24-decrease Otis 10/325 to Otis 7.5/325 james ry 4 as needed -Lidoderm patch to left thigh daily -Otis 7.5/325 mg oral every 4 hours as needed f or pain -manageable Right AKA discomfort -05/23/2020-CT lower extremity - Above th e knee amputation changes with complex soft tissue fluid collection at the stum p site. There is loss of fatty medullary density at the stump site. Osteomyelitis is not excluded. C orrelate with MRI as clinically indicated. -IV antibiotics , appreciate infectious disease input -Pain medications as outlined above Peripheral neuropathy, phantom limb pain right l ower extremity -Gabapentin 300 mg oral at bedtime -amitriptyline 10 mg oral at bedtime -stable Antalgic/impaired gait -PT/OT -Gait training, improve endurance and strength -Transfer training -PMR following Falls -Fall precautions End-stage renal disease on hemodialysis -Nephrology following Subdural hematoma -Monitor mental status with opioids and other se dative medications Depression -monitoring Constipation -Monitor closely while patient is using opioid n arcotics -MiraLAX 17 g p.o. daily -Senna 1 tab p.o. daily All pertinent diagnostics/labs from the last 24 hours and during the course of the admission were reviewed. Plan discussed with the patient and the nurse. A ll questions were answered. Patient will be monitored for deleteriou s side effects associated with opioids and sedative medications. Me dications will be adjusted further clinical course. Risks versus benefits of opioid medications were reviewed to include, but not limited to respiratory depression, accid ental overdose, altered mental status, sudden , constipation which could result in bowel obstruction, seizures, withdrawal, dependency/addiction, risk for falls . Goals: Daily pain control. Case discussed with Dr Lofton whom agrees. 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: Total Prescriptions 28 Total Private Pay 0 Total Prescribers 4 Total Pharmacies 1 05/06/2020 1 05/06/2020 HYDROCODONE-ACETAMIN 10- 325 MG 30.0 7 [facility] S[facility] [id number] [facility] (1602) 0 42.86 MME Comm Ins [place] 04/20/2020 1 12/24/2019 ZOLPIDEM TARTRATE 10 MG TABLET 30.0 30 PE LAT [id number] [facility] (1602) 4 Comm Ins [place] 03/21/2020 1 12/24/2019 ZOLPIDEM TARTRATE 10 MG TABLET 30.0 30 PE LAT [id number] [facility] (1602) 3 Comm Ins [place] 02/20/2020 1 12/24/2019 ZOLPIDEM TARTRATE 10 MG TABLET 30.0 30 PE LAT [id number] [facility] (1602) 2 Comm Ins [place] 01/21/2020 1 12/24/2019 ZOLPIDEM TARTRATE 10 MG TABLET 30.0 30 PE LAT [id number] [facility] (1602) 1 [place] Ins [place] 12/24/2019 1 12/24/2019 ZOLPIDEM TARTRATE 10 MG TABLET 30.0 30 PE LAT [id number] [facility] (1602) 0 Comm Ins [place] 11/25/2019 1 07/07/2019 ZOLPIDEM TARTRATE 10 MG TABLET 30.0 30 PE LAT [id number] [facility] (1602) 5 Comm Ins [facility] #[id number] ([phone]) [address] [place] [address] at 5462 Electronically Signed by Herman Lofton MD on 0 05/24/20 at 1751 RPT #:[id number] END OF REPORT 2020-05-24 09:29:00-00:00 [facility] ([facility]) Infectious Dis. Progress Note REPORT#:[id number] REPORT STATUS: Signed DATE:05/24/20 TIME: 928 PATIENT: DARIEN GROSSMAN UNIT #: [id number] ROOM/BED: [place] [address] : 45 AGE: 74 SEX: M ATTEND: Rosa Curtis MD ADM AUTHOR: Jonathan Sheikh NP * ALL edits or amendments must be made on the C-Note/computer document * Subjective Chief Complaint: F/U Rght AKA cellulitis HPI: Patient is a 74-year-old male with past medical history of end-stage renal disease on HD, hypertension, hyperlipide liseth who underwent right axugb-vob-qdxq amputation in March 2020. He was admitted to [facility] after sustaining a fall resulting in a subdural hematoma. He was transferred to rehab on . He was noted to have small amount of gamal inage to his right AKA stump and hence ID was consulted to assist with antibi otics and plan of care. Patient reports: Yes: pain (Right AKA), pain controlled. No: comp laints, abdominal pain, back pain, bowel movement, burning with urina tion, cough, diarrhea, feeling better, fever, headache, nausea, shortness of breath, vo miting, wheezing. Nursing reports: No: complaints. Review of Systems All systems rev neg: except as marked Objective General VS/I O: Last Documented: Result Date Time Pulse Ox 93 05/25 723 B/P 134/64 05/25 723 B/P Mean 87.3 05/25 723 O2 Delivery Room air 05/25 723 Temp 99.0 05/25 723 Pulse 60 05/25 723 Resp 18 05/25 723 Vital Signs Date Temp Pulse Resp B/P B/P Mean Pulse Ox FiO 2 05/23-05/24 98.6-99.0 60-69 16-18 134-145/64-72 87.3-96.4 93-97 24 hour I O ending at 0700: 05/24 0700 05/23 1900 Intake Total 240.00 Output Total 2300 Balance 240.00 -2300 Intake, IV 120.00 Intake, Oral 120 Number 1 Bowel Movements Number Voids 1 Output, 2300 Hemodialysis PATIENT WEIGHT: Weight (lb): 171 Weight (oz): 12.16 Weight (kg): 77.909 Physical Exam General appearance: alert, awake, oriented Wound/incision: Location: Right AKA stump- no erthema or draiange, small a farshad of srgical dehiscence Head/Eyes: atraumatic, normal conjunctiva/sclera ENT: moist mucosal membranes Neck: no JVD Cardiovascular: normal heart sounds Abdomen: non-tender, normal bowel sounds Neuro/CUSTODIAN MANAGER: alert, oriented X 3 Skin: dry, normal turgor, no rash Results Findings/Data: Laboratory Tests 05/23 05/23 1300 1300 Chemistry Sodium (134 - 147 mEq/L) 133 L Potassium (3.4 - 5.0 mEq/L) 4.1 Chloride (100 - 108 mEq/L) 97 L Carbon Dioxide (21 - 33 mEq/l) 27 Anion Gap (0 - 20) 13 BUN (7 - 18 mg/dL) 54 H Creatinine (0.6 - 1.3 mg/dL) 4.5 H Glomerular Filtr Rate (70 - 80) 12.9 L Glucose (70 - 110 mg/dL) 200 H Calcium (8.0 - 10.5 mg/dL) 9.6 Phosphorus (2.5 - 4.9 MG/DL) 3.9 Albumin (3.4 - 5.0 g/dL) 3.20 L Prealbumin (16.0 - 40.0 mg/dL) 14.3 L Laboratory Tests 05/23 1300 Hematology WBC (4.5 - 11.0 x10 3/uL) 9.7 RBC (4.00 - 5.60 x10 6/uL) 3.31 L Hgb (12.5 - 16.9 g/dL) 9.5 L Hct (37.5 - 50.7 %) 29.6 L MCV (81.0 - 99.0 fL) 89.4 MCH (27.0 - 33.0 pg) 28.7 MCHC (33.0 - 37.0 g/dL) 32.1 L RDW (11.5 - 14.5 %) 14.4 Plt Count (150 - 400 x10 3/uL) 395 MPV (7.0 - 9.0 fL) 8.3 Neut % (Auto) (56.0 - 77.0 %) 78.9 H Lymph % (Auto) (14.0 - 32.0 %) 7.0 L Dolores % (Auto) (4.8 - 9.0 %) 7.2 Eos % (Auto) (0.3 - 3.7 %) 5.9 H Baso % (Auto) (0.0 - 2.0 %) 0.4 Neut # (Auto) (2.0 - 7.6 x10 3/uL) 7.67 H Lymph # (Auto) (1.0 - 3.8 x10 3/uL) 0.68 L Dolores # (Auto) (0.1 - 0.8 x10 3/uL) 0.70 Eos # (Auto) (0.0 - 0.2 x10 3/uL) 0.57 H Baso # (Auto) (0.0 - 0.2 x10 3/uL) 0.04 Abs Immat Gran (auto) (0.00 - 0.03 x10 3/uL) 0. 06 H Add Manual Diff NO Immature Gran % (0.0 - 2.0 %) 0.6 Nucleated RBC % (0 - 0 %) 0.0 Nucleated RBCs # (Man) (0.0 - 0.1 x10 3/uL) 0.0 0 Radiology data: Recent Impressions: CAT SCAN - CT LOWER EXTRM W/O C RT 05/23 6138 Report Impression - Status: SIGNED Entered: 05/23/2020 9173 IMPRESSION: Above the knee amputation changes wi th complex soft tissue fluid collection at the stump site. There is los s of fatty medullary density at the stump site. Osteomyelitis is not excluded. Correlate with MRI as clinically indicated. SL: SG-H Impression By: [email or web address] - Dominic Mena M.D. Results: labs reviewed, vital signs stable, CT r esults reviewed (images personally reviewed), current med profile rev'd Diagnosis, Assessment Plan Free Text A P: 1. Right AKA stump cellulitis --R/O fluid collection, check CT extremity --Superficial cx: Pseudomonas (R-Merrem), and Co NS --ESR/CRP significant elevated --CT (+) [id number] loculated f luid collection; IR for diagnostic aspiration and cx 2. S/P Mechanical fall with SDH 3. ESRD on HD 4. HTN 5. HLD On Zosyn started 05/23 (Day 1) Plan discussed with: patient, nurse Electronically Signed by Jonathan Sheikh NP on at 1618 RPT #:[id number] END OF REPORT 2020-05-24 09:29:00-00:00 [facility] ([facility]) Infectious Dis. Progress Note REPORT#:[id number] REPORT STATUS: Signed DATE:05/24/20 TIME: 928 PATIENT: DARIEN GROSSMAN UNIT #: [id number] ROOM/BED: [place] [address] : 45 AGE: 74 SEX: M ATTEND: Rosa Curtis MD ADM AUTHOR: Jonathan Sheikh NP * ALL edits or amendments must be made on the el [employer]/computer document * Subjective Chief Complaint: F/U Rght AKA cellulitis HPI: Patient is a 74-year-old male with past medical history of end-stage renal disease on HD, hypertension, hyperlipide liseth who underwent right oucno-vyk-wgvm amputation in March 2020. He was admitted to [facility] after sustaining a fall resulting in a subdural hematoma. He was transferred to rehab on 5 E. He was noted to have small amount of gamal inage to his right AKA stump and hence ID was consulted to assist with antibi otics and plan of care. Patient reports: Yes: pain (Right AKA), pain controlled. No: comp laints, abdominal pain, back pain, bowel movement, burning with urina tion, cough, diarrhea, feeling better, fever, headache, nausea, shortness of breath, vo miting, wheezing. Nursing reports: No: complaints. Review of Systems All systems rev neg: except as marked Objective General VS/I O: Last Documented: Result Date Time Pulse Ox 93 05/25 723 B/P 134/64 05/25 723 B/P Mean 87.3 05/25 723 O2 Delivery Room air 04/13 0724 Temp 99.0 05/24 0724 Pulse 60 05/24 0724 Resp 18 05/24 0724 Vital Signs Date Temp Pulse Resp B/P B/P Mean Pulse Ox FiO2 05/23-05/24 98.6-99.0 60-69 16-18 134-145/64-72 87.3-96.4 93-97 24 hour I O ending at 0700: 05/24 0700 05/23 1900 Intake Total 240.00 Output Total 2300 Balance 240.00 -2300 Intake, IV 120.00 Intake, Oral 120 Number 1 Bowel Movements Number Voids 1 Output, 2300 Hemodialysis PATIENT WEIGHT: Weight (lb): 171 Weight (oz): 12.16 Weight (kg): 77.909 Physical Exam General appearance: alert, awake, oriented Wound/incision: Location: Right AKA stump- no erthema or draiange, small a farshad of srgical dehiscence Head/Eyes: atraumatic, normal conjunctiva/sclera ENT: moist mucosal membranes Neck: no JVD Cardiovascular: normal heart sounds Abdomen: non-tender, normal bowel sounds Neuro/CUSTODIAN MANAGER: alert, oriented X 3 Skin: dry, normal turgor, no rash Results Findings/Data: Laboratory Tests 05/23 05/23 1300 1300 Chemistry Sodium (134 - 147 mEq/L) 133 L Potassium (3.4 - 5.0 mEq/L) 4.1 Chloride (100 - 108 mEq/L) 97 L Carbon Dioxide (21 - 33 mEq/l) 27 Anion Gap (0 - 20) 13 BUN (7 - 18 mg/dL) 54 H Creatinine (0.6 - 1.3 mg/dL) 4.5 H Glomerular Filtr Rate (70 - 80) 12.9 L Glucose (70 - 110 mg/dL) 200 H Calcium (8.0 - 10.5 mg/dL) 9.6 Phosphorus (2.5 - 4.9 MG/DL) 3.9 Albumin (3.4 - 5.0 g/dL) 3.20 L Prealbumin (16.0 - 40.0 mg/dL) 14.3 L Laboratory Tests 05/23 1300 Hematology WBC (4.5 - 11.0 x10 3/uL) 9.7 RBC (4.00 - 5.60 x10 6/uL) 3.31 L Hgb (12.5 - 16.9 g/dL) 9.5 L Hct (37.5 - 50.7 %) 29.6 L MCV (81.0 - 99.0 fL) 89.4 MCH (27.0 - 33.0 pg) 28.7 MCHC (33.0 - 37.0 g/dL) 32.1 L RDW (11.5 - 14.5 %) 14.4 Plt Count (150 - 400 x10 3/uL) 395 MPV (7.0 - 9.0 fL) 8.3 Neut % (Auto) (56.0 - 77.0 %) 78.9 H Lymph % (Auto) (14.0 - 32.0 %) 7.0 L Dolores % (Auto) (4.8 - 9.0 %) 7.2 Eos % (Auto) (0.3 - 3.7 %) 5.9 H Baso % (Auto) (0.0 - 2.0 %) 0.4 Neut # (Auto) (2.0 - 7.6 x10 3/uL) 7.67 H Lymph # (Auto) (1.0 - 3.8 x10 3/uL) 0.68 L Dolores # (Auto) (0.1 - 0.8 x10 3/uL) 0.70 Eos # (Auto) (0.0 - 0.2 x10 3/uL) 0.57 H Baso # (Auto) (0.0 - 0.2 x10 3/uL) 0.04 Abs Immat Gran (auto) (0.00 - 0.03 x10 3/uL) 0. 06 H Add Manual Diff NO Immature Gran % (0.0 - 2.0 %) 0.6 Nucleated RBC % (0 - 0 %) 0.0 Nucleated RBCs # (Man) (0.0 - 0.1 x10 3/uL) 0.0 0 Radiology data: Recent Impressions: CAT SCAN - CT LOWER EXTRM W/O C RT 05/24 1727 Report Impression - Status: SIGNED Entered: 05/23/2020 0470 IMPRESSION: Above the knee amputation changes wi th complex soft tissue fluid collection at the stump site. There is los s of fatty medullary density at the stump site. Osteomyelitis is not excluded. Correlate with MRI as clinically indicated. SL: SG-H Impression By: [email or web address] - Dominic Mena M.D. Results: labs reviewed, vital signs stable, CT r esults reviewed (images personally reviewed), current med profile rev'd Diagnosis, Assessment Plan Free Text A P: 1. Right AKA stump cellulitis --R/O fluid collection, check CT extremity --Superficial cx: Pseudomonas (R-Merrem), and Co NS --ESR/CRP significant elevated --CT (+) [id number] loculated f luid collection; IR for diagnostic aspiration and cx 2. S/P Mechanical fall with SDH 3. ESRD on HD 4. HTN 5. HLD On Zosyn started 05/23 (Day 1) Plan discussed with: patient, nurse Electronically Signed by Jonathan Sheikh NP on at 1618 at 0818 RPT #:[id number] END OF REPORT 2020-05-24 09:10:00-00:00 [facility] REPORT#:[id number] REPORT STATUS: Signed DATE:05/24/20 TIME: 909 PATIENT: DARIEN GROSSMAN UNIT #: [id number] ROOM/BED: [place] [address] : 45 AGE: 74 SEX: M ATTEND: Rosa Curtis MD ADM AUTHOR: Sekou Curtis MD * ALL edits or amendments must be made on the C-Note/computer document * Subjective Chief complaint: Rehab follow-up Generalized weakness Patient still depressed and tearful today Did not receive his Pristiq from home Right AKA wounds look better Slept well Working with therapist Eating 5-100% Positive BM Denies PATEL/N/V/D 14 systems reviewed and neg. except that above. Patient reports: No: shortness of breath, vomiting, constipation. Nursing reports: No: new events overnight. Objective General VS: Vital Signs: Date Time Temp Pulse Resp B/P B/P Pulse O2 O2 F low FiO2 Mean Ox Delivery Rate 05/24 0724 99.0 60 18 134/64 87.3 93 Room air 05/24 114 98.8 64 17 144/69 93.8 97 Room air 05/23 2008 98.6 69 16 145/72 96.4 95 PATIENT WEIGHT: Weight (lb): 171 Weight (oz): 12.16 Weight (kg): 77.909 Medications: Active Meds + DC'd Last 24 Hrs Sertraline HCl 25 MG BEDTIME PO Albumin Human 12.5 GM ASDIR PRN IV Lidocaine HCl 0.5 ML ASDIR PRN I-DERMAL (CKD) Mannitol 12.5 GM ASDIR PRN IV Sodium Chloride 2,000 ML ASDIR PRN IV Sodium Chloride 10 ML ASDIR PRN IV Sodium Chloride 250 ML ASDIR PRN IV Piperacillin Sod/Tazobactam Sod 3.375 GM Q12H IV Sodium Chloride 100 ML Collagenase 1 APPLIC DAILY TOPICAL Cefepime HCl 1 GM Q12H IV (DC) Sodium Chloride 10 ML Miscellaneous Information 1 EACH ASDIR IV (DC) Lidocaine 1 PATCH DAILY TOPICAL Amitriptyline HCl 10 MG BEDTIME PO Triamcinolone Acetonide 40 MG PROCEDURE IM (CKD) Aspirin 81 MG DAILY PO Clopidogrel Bisulfate 75 MG DAILY PO Furosemide 40 MG DAILY PO Polyethylene Glycol 17 GM DAILY PO Senna 1 TAB DAILY PO (CKD) Venlafaxine HCl 75 MG DAILY PO Acetaminophen 650 MG Q6H PRN PRN PO Hydralazine HCl 10 MG Q6H PRN PRN PO Ondansetron HCl 4 MG TID PRN PRN SL Heparin Sodium 5,000 UNIT Q8H SUBQ Buspirone HCl 10 MG BEDTIME PO (DC) Epoetin Donny-epbx 4,000 UNIT TuThSa@2100 SUBQ Gabapentin 300 MG BEDTIME PO Metoprolol Tartrate 25 MG BID PO Trazodone HCl 150 MG BEDTIME PO Hydrocodone Bitart/Acetaminophen 1 TAB Q4H PRN P RN PO Zolpidem Tartrate 5 MG BEDTIME PRN PRN PO Nutrition assessment: BMI-25.4 Functional Progress Functional progress: - PT DAILY NOTE - - PT daily note comment: S: PATIENT AGREEABLE FOR THERAPY. O: PATIENT PERFORMED ROLLING WITH IND, SUPINE T O SIT W/ IND, SIT TO SUPINE WITH IND, GT TRAINING FOR 100 FT , 200 FT W/ IND, WCMOBILITY FOR 400 FT. Pt. INSTRUCTED ON SEATED THER EX W/ LLE FOR AP, LAQ, HIP ABD/ADD/FLX FOR 2 SETS X 20 REPS EACH FOR STRENGTHENING AND USE OF MIRROR DURING THER EX. A: PATIENT PERFORMED TREATMENT WELL. P: CONTINUE PLAN OF CARE. - OT DAILY NOTE - - Transfers: MIN A Activities of daily living: COMPLETED FULL SHOW ER Cognition: FOLLOW SIMPLE COMMANDS OT daily note comment: PT PARTICIPATED 90 MIN S KILLED OT, PT COMPLETED FULL SHOWER, PT'S ADL REQ MIN A TO I. PT REQ MAX CUES SAFET Y AWERENESS ABOUT ADL. EDUCATED LB DRESSING AT BED LEVEL. P T WAS EMOTIONAL DURING THERAPY. ASSISTED PT SIT IN W C, ALL NEEDS IN REACH. CON'T SKILLED OT POC. Physical Exam General appearance: alert, awake, oriented Psych: alert, normal affect, oriented x 3 HEENT: anicteric, mucosal membranes moist, pupil s reactive to light, sclera clear, NC/AT Neck: non-tender, supple, no JVD Cardiovascular: regular rate rhythm, S1/S2, no m urmur Respiratory: aerating well, clear bilaterally, c lear to auscultation Abdomen: bowel sounds presen t, non-distended, soft, non-tender, no mass palpable Skin: dry, normal temperature, L AKA incision w 2 open areas of dehiscence-no drainage, no odor. Musculoskeletal - general: Musculoskeletal - general: normal tone, no swel ling, MMT moves all against gravity. BUE 4/5, SHORT PIECE HANDLER GOOD, RHF 3+/5, LLE 4/5. L calf NT, No cords. TTP L lateral thigh above trochanter bursae. Neuro/CUSTODIAN MANAGER: alert, oriented X 3, CNII-XII intact, normal speech, reflexes equal bilat Results Findings/Data: Laboratory Tests: 05/23 05/23 1300 1300 Chemistry Sodium (134 - 147 mEq/L) 133 L Potassium (3.4 - 5.0 mEq/L) 4.1 Chloride (100 - 108 mEq/L) 97 L Carbon Dioxide (21 - 33 mEq/l) 27 Anion Gap (0 - 20) 13 BUN (7 - 18 mg/dL) 54 H Creatinine (0.6 - 1.3 mg/dL) 4.5 H Glomerular Filtr Rate (70 - 80) 12.9 L Glucose (70 - 110 mg/dL) 200 H Calcium (8.0 - 10.5 mg/dL) 9.6 Phosphorus (2.5 - 4.9 MG/DL) 3.9 Albumin (3.4 - 5.0 g/dL) 3.20 L Prealbumin (16.0 - 40.0 mg/dL) 14.3 L Hematology WBC (4.5 - 11.0 x10 3/uL) 9.7 RBC (4.00 - 5.60 x10 6/uL) 3.31 L Hgb (12.5 - 16.9 g/dL) 9.5 L Hct (37.5 - 50.7 %) 29.6 L MCV (81.0 - 99.0 fL) 89.4 MCH (27.0 - 33.0 pg) 28.7 MCHC (33.0 - 37.0 g/dL) 32.1 L RDW (11.5 - 14.5 %) 14.4 Plt Count (150 - 400 x10 3/uL) 395 MPV (7.0 - 9.0 fL) 8.3 Neut % (Auto) (56.0 - 77.0 %) 78.9 H Lymph % (Auto) (14.0 - 32.0 %) 7.0 L Dolores % (Auto) (4.8 - 9.0 %) 7.2 Eos % (Auto) (0.3 - 3.7 %) 5.9 H Baso % (Auto) (0.0 - 2.0 %) 0.4 Neut # (Auto) (2.0 - 7.6 x10 3/uL) 7.67 H Lymph # (Auto) (1.0 - 3.8 x10 3/uL) 0.68 L Dolores # (Auto) (0.1 - 0.8 x10 3/uL) 0.70 Eos # (Auto) (0.0 - 0.2 x10 3/uL) 0.57 H Baso # (Auto) (0.0 - 0.2 x10 3/uL) 0.04 Abs Immat Gran (auto) (0.00 - 0.03 x10 3/uL) 0. 06 H Add Manual Diff NO Immature Gran % (0.0 - 2.0 %) 0.6 Nucleated RBC % (0 - 0 %) 0.0 Nucleated RBCs # (Man) (0.0 - 0.1 x10 3/uL) 0.0 0 Radiology data: Recent Impressions: CAT SCAN - CT LOWER EXTRM W/O C RT 05/23 1728 Report Impression - Status: SIGNED Entered: 05/23/2020 1806 IMPRESSION: Above the knee amputation changes wi th complex soft tissue fluid collection at the stump site. There is los s of fatty medullary density at the stump site. Osteomyelitis is not excluded. Correlate with MRI as clinically indicated. SL: RADHA-H Impression By: [email or web address] - Dominic Mena M.D. Objective Comments Objective comments: 05/24 0700 05/23 2300 05/23 1500 Intake Total 240.00 Output Total 2300 Balance 240.00 -2300 Intake, IV 120.00 Intake, Oral 120 Number 1 Bowel Movements Number Voids 1 Output, 2300 Hemodialysis Diagnosis, Assessment Plan Problem List/A P: 1. Fall 2. Subdural hematoma 3. TBI (traumatic brain injury) 4. History of right above knee amputation 5. ESRD on dialysis 6. History of coronary artery disease 7. History of coronary angioplasty with inserti on of stent 8. HLD (hyperlipidemia) 9. Anemia of chronic disease 10. Frequent falls 11. Hypoalbuminemia 12. Leukocytosis 13. Limb pain 14. 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 ESRD on hemodialysis Hyperkalemia resolved History of CAD Hypertension HLD Anemia of chronic disease Right AKA wound dehiscence-does not appear to be infected Left lateral thigh pain Left thigh pain, lateral femoral cutaneous neura lgia Significant impairment in self-care and function al mobility Plan: -Comprehensive inpatient rehabilitation with physical, occupational and speech therapy 3 hours a day for 5 to 6 days per week-2 05/18 rehabilitation physician supervision-03/09 rehabilitat ion nursing care-Case management for safe discharge planning-Rehab MD to monitor comorbidities and f unctional progress. -Decubitus prevention-protective hydrating lotio n-turn every 2 hours-offload -Right AKA wound dehiscence- wound care consulted-Dr. Gilbert-for now Xeroform and Mepilex -Consult new life brace management/prosthetics -Strict fall and safety precaution -DVT prophylaxis-SCDs and subcutaneous heparin -GI prophylaxis-Protonix -Early mobilization-OOB to chair -Work on bed mobility, transfer training , ADLs, pre-gait and gait exercises as tolerable. 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 intake, check albumin 3.2 and prealbumin 13.1, 14.3, dietary consult, protein supplements . -Await consultants input, internal medicine, nep hrology, pain management, ID, wound care -Domenica for a total of 7 days-to be completed to efrain 05/21-completed -Continue right AKA incisional dressing care-wou nds looking better -Consult prosthetic company for evaluation -Continue aspirin and Plavix-Lasix -History of depression/anxie ty continue Carlyn Dixon Effexor-office asst bring in patient's home Pristiq -Monitor hemoglobin on Epogen -Hemodialysis as per nephrology-Saturday -Blood pressure currently stable on current medi cation -Renal diet -Left hip pain-x-ray of the left hip and pelvis showed no acute osseous fracture. The hip joint spaces are preserved-sat itor -Elevated WBC-possible infec amado right NASEEM-culture wound pending-no fever-repeat CBC 05/21-given patient's history of staph infect ion prior will consult ID. Patient seen by ID-patient placed on vancomycin now discontinued -Right AKA wound dehiscence- Culture done-rare gram-negative bacilli-Santyl with xeroform to dehisced sites cover with foam dress ing daily-As per wound care -Right AKA stump cellulitis-R/O fluid collection , check CT extremity without contrast-Superficial cx: Pseudomonas (R-Merrem), and CoNS-ESR 114/CRP 192 significant elevated-On Cefepime, change to Zosy n as per ID -05/23-CT of RLE-CT(+) 6/6/4cm loculated fluid co llection Infectious disease believes this is more of a seroma. I discussed w ith ID Dr. Sierra and he agrees with vascular surgery consul tation. I would like to treat this conservatively as possible since patient on rehab. Continue Zosyn as per ID-HAS MIDLINE - ID ordered special procedures IR aspiratio n of fluid -Depression worse-patient's office manag er to bring in patient's home Prestiq- psychiatry consult-started o n Zoloft-monitor closely-patient upset and depressed and became more depressed after he learned about the results of the CT. -Labs reviewed-WBC down to 9 .7-hemoglobin stable 9.5, sodium 133, creatinine 4.5 -Labs as per renal -Continue current medication -GOALS: Supervision to modified independent -START BRAIN INJURY AND AMPUTATION IRF -Team conference today Patient Progress-GT TRAINING FOR 100 FT, 200 FT W/ IND, WCMOBILITY FOR 400 FT. PM R Please see team note. Plan and goals discussed with the patient. I agree with the teams finding ELOS- [05/31] DC-Home with family-HH DME-HAS WC, TT 35 min>50% with tiffanie carrillo with patient about team conference, discharge plan , CT results, aspiration of fluid, vascular surg judith consultation, depression, home Pristiq, CT scan of the residual limb, progress, open wounds to right AKA, ID consult, continue IV anti biotic, reviewed culture results, wound care, rehab plan of care, goals, expectations, needs , and medical issues, examination. MAR and EMR reviewed. All Questions answered. Orders: Procedure Date/time Status TRANSPORT REQUEST 05/24 1319 Active PHYSICIAN CONSULT 05/24 1116 Active PT WHEELCHAIR TRAINING 05/24 UNK Complete PT GAIT TRNG 05/24 UNK Complete PT FUNCTIONAL TRN 15 MIN 05/24 UNK Complete TRAY BX 25GA 06/18 NDL 05/24 UNK Complete Plan discussed with: patient, nurse, interdisc c are team Rehab attestation: Face to face exam completed. Treatment plan disc ussed with patient. Meets continued stay criteria. Agree with interdiscipl inary treatment plan. Patient seen and examined by me personally. at 1515 RPT #:[id number] END OF REPORT 2020-05-23 23:17:00-00:00 [facility] REPORT#:[id number] REPORT STATUS: Signed DATE:05/23/20 TIME: 2316 PATIENT: DARIEN GROSSMAN UNIT #: [id number] ROOM/BED: [place] [address] : 45 AGE: 74 SEX: M ATTEND: Rosa Curtis MD ADM AUTHOR: Javier Meek NP * ALL edits or amendments must be made on the C-Note/Above All Software document * Subjective Chief Complaint: Right AKA Impaired functional mobility Recurrent falls Review of Systems Constitutional: Denies: chills, fever. ENT: Denies: earache, nasal congestion, sore throat. Respiratory: Denies: hemoptysis, parox no cturnal dyspnea, pleurisy, pleuritic pain, pneumonia , SOB, wheezing. Cardiovascular: Denies: chest pain, palpitations. GI: Denies: abdominal pain, nausea, vomiting. : Denies: flank pain, frequency, hematuria. Musculoskeletal: Denies: extremity pain, extr emity swelling, joint pain, lumbar pain, neck pain. Neuro: Denies: change in LOC, confusion, dizziness, foc al weakness, gait problem, headache, lightheaded, numbness, seizure, slurre d speech, spinning sensation, syncope, unable to speak, vision change. Psych: Denies: agitation, anxiety, auditory hallucinati on, change in mental status, confusion, delusional, depre ssion, homicidal ideation, hostile, insomnia, stress , suicidal ideation, visual hallucination. All systems rev neg: except as marked Objective General VS/I O: Laboratory Tests 05/23/20 1300: [Embedded Image Not Available] 05/23/20 1300: [Embedded Image Not Available] 05/22/20 0535: [Embedded Image Not Available] Laboratory Tests 05/23 05/23 05/22 05/22 05/21 1300 1300 0535 0535 0550 Chemistry Sodium (134 - 147 mEq/L) 133 L 137 Potassium (3.4 - 5.0 mEq/L) 4.1 3.6 Chloride (100 - 108 mEq/L) 97 L 97 L Carbon Dioxide (21 - 33 mEq/l) 27 32 Anion Gap (0 - 20) 13 11 BUN (7 - 18 mg/dL) 54 H 31 H Creatinine (0.6 - 1.3 mg/dL) 4.5 H 3.4 H Glomerular Filtr Rate (70 - 80) 12.9 L 17.8 L Glucose (70 - 110 mg/dL) 200 H 84 Calcium (8.0 - 10.5 mg/dL) 9.6 9.1 Phosphorus (2.5 - 4.9 MG/DL) 3.9 C-Reactive Protein (<10.0 mg/L) 192.0 H Albumin (3.4 - 5.0 g/dL) 3.20 L Prealbumin (16.0 - 40.0 mg/dL) 14.3 L 13.1 L Laboratory Tests 05/23 05/22 05/22 05/21 1300 0535 0535 0550 Hematology WBC (4.5 - 11.0 x10 3/uL) 9.7 12.5 H 12.3 H RBC (4.00 - 5.60 x10 6/uL) 3.31 L 3.42 L 3.09 L Hgb (12.5 - 16.9 g/dL) 9.5 L 9.9 L 8.9 L Hct (37.5 - 50.7 %) 29.6 L 31.1 L 28.3 L MCV (81.0 - 99.0 fL) 89.4 90.9 91.6 MCH (27.0 - 33.0 pg) 28.7 28.9 28.8 MCHC (33.0 - 37.0 g/dL) 32.1 L 31.8 L 31.4 L RDW (11.5 - 14.5 %) 14.4 14.6 H 14.4 Plt Count (150 - 400 x10 3/uL) 395 412 H 373 MPV (7.0 - 9.0 fL) 8.3 8.6 8.8 Neut % (Auto) (56.0 - 77.0 %) 78.9 H 75.3 74.4 Lymph % (Auto) (14.0 - 32.0 %) 7.0 L 7.6 L 9.4 L Dolores % (Auto) (4.8 - 9.0 %) 7.2 9.8 H 10.2 H Eos % (Auto) (0.3 - 3.7 %) 5.9 H 6.3 H 5.2 H Baso % (Auto) (0.0 - 2.0 %) 0.4 0.4 0.3 Neut # (Auto) (2.0 - 7.6 x10 3/uL) 7.67 H 9.40 H 9.13 H Lymph # (Auto) (1.0 - 3.8 x10 3/uL) 0.68 L 0.95 L 1.16 Dolores # (Auto) (0.1 - 0.8 x10 3/uL) 0.70 1.23 H 1.25 H Eos # (Auto) (0.0 - 0.2 x10 3/uL) 0.57 H 0.79 H 0.64 H Baso # (Auto) (0.0 - 0.2 x10 3/uL) 0.04 0.05 0. 04 Abs Immat Gran (auto) (0.00 - 0.03 x10 3/uL) 0. 06 H 0.08 H 0.06 H Add Manual Diff NO NO NO Immature Gran % (0.0 - 2.0 %) 0.6 0.6 0.5 Nucleated RBC % (0 - 0 %) 0.0 0.0 0.0 Nucleated RBCs # (Man) (0.0 - 0.1 x10 3/uL) 0.0 0 0.00 0.00 ESR Westergren (0 - 15 mm/hr) 114 H Microbiology Date/Time Procedure - Status Source Growth 05/21 1745 Gram Stain - COMP WND OTHER Chemistry: 05/23 05/23 1300 1300 Chemistry Sodium (134 - 147 mEq/L) 133 L Potassium (3.4 - 5.0 mEq/L) 4.1 Chloride (100 - 108 mEq/L) 97 L Carbon Dioxide (21 - 33 mEq/l) 27 BUN (7 - 18 mg/dL) 54 H Creatinine (0.6 - 1.3 mg/dL) 4.5 H Glucose (70 - 110 mg/dL) 200 H Calcium (8.0 - 10.5 mg/dL) 9.6 Phosphorus (2.5 - 4.9 MG/DL) 3.9 Albumin (3.4 - 5.0 g/dL) 3.20 L Microbiology: 05/21 1744 WND OTHER: Gram Stain - COMP 05/21 544 LEG: Wound Culture - RES PSEUDOMONAS AERUGINOSA Vital Signs: Date Time Temp Pulse Resp B/P B/P Pulse O2 O2 F low FiO2 Mean Ox Delivery Rate 05/23 2008 37.0 69 16 145/72 96.4 95 05/23 07 37.0 65 18 145/72 96.4 93 05/23 0700 05/22 2300 05/22 1500 Intake Total 240 120 Output Total 400 200 Balance -160 -80 Intake, Oral 240 120 Output, Urine 400 200 Current Medications Sig/Tatum Start time Last Medication Dose Route Stop Time Status Admin Sertraline HCl 25 MG BEDTIME 05/23 2099 AC 05/12 2 PO 06/22 Albumin Human 12.5 GM ASDIR PRN 05/23 1415 AC IV 06/23 1413 Lidocaine HCl 0.5 ML ASDIR PRN 05/23 1415 CKD I-DERMAL 06/23 1413 Mannitol 12.5 GM ASDIR PRN 05/23 1415 AC IV 06/23 1413 Sodium Chloride 2,000 ML ASDIR PRN 05/23 1415 AC 05/23 IV 06/23 1413 1439 Sodium Chloride 10 ML ASDIR PRN 05/23 1415 AC 0 05/23 IV 06/22 1414 1440 Sodium Chloride 250 ML ASDIR PRN 05/23 1415 AC IV 06/22 1414 Piperacillin Sod/ 3.375 GM Q12H 05/23 1300 AC 0 05/23 Tazobactam Sod IV 05/30 1259 1751 Sodium Chloride 100 ML Collagenase 1 APPLIC DAILY 05/22 09 AC 05/23 TOPICAL 06/21 0859 0801 Cefepime HCl 1 GM Q12H 05/21 2100 DC 05/23 Sodium Chloride 10 ML IV 06/04 2058 0803 Miscellaneous 1 EACH ASDIR 05/21 1145 DC Information IV 06/20 1144 Lidocaine 1 PATCH DAILY 05/21 0900 AC 05/23 TOPICAL 06/20 0859 0805 Amitriptyline HCl 10 MG BEDTIME 05/20 2099 AC 0 05/23 PO 06/19 Triamcinolone 40 MG PROCEDURE 05/20 1944 CKD Acetonide IM 06/20 1943 Aspirin 81 MG DAILY 05/20 899 AC 05/23 PO 06/19 1300 0803 Clopidogrel Bisulfate 75 MG DAILY 05/20 899 A C 05/23 PO 06/19 1300 0803 Furosemide 40 MG DAILY 05/20 899 AC 05/23 PO 06/19 1300 0804 Polyethylene Glycol 17 GM DAILY 05/20 899 AC 0 05/21 PO 06/19 1300 1016 Senna 1 TAB DAILY 05/20 899 CKD 05/21 PO 06/19 1300 1015 Venlafaxine HCl 75 MG DAILY 05/20 899 AC 05/23 PO 06/19 1300 0801 Acetaminophen 650 MG Q6H PRN PRN 05/20 0845 AC PO 06/19 0844 Hydralazine HCl 10 MG Q6H PRN PRN 05/20 0845 AC PO 06/19 0844 Ondansetron HCl 4 MG TID PRN PRN 05/20 0845 AC SL 06/19 0844 Heparin Sodium 5,000 UNIT Q8H 05/19 2200 AC SUBQ 06/19 1300 2209 Buspirone HCl 10 MG BEDTIME 05/19 2100 DC 05/12 2 PO 06/19 1300 2024 Epoetin Donny-epbx 4,000 UNIT TuThSa@2100 05/19 2100 AC 05/21 SUBQ 06/19 1300 2143 Gabapentin 300 MG BEDTIME 05/19 2100 AC 05/23 PO 06/19 1300 2024 Metoprolol Tartrate 25 MG BID 05/19 2100 AC PO 06/19 1300 2023 Trazodone HCl 150 MG BEDTIME 05/19 2100 AC 05/12 2 PO 06/19 1300 2023 Hydrocodone Bitart/ 1 TAB Q4H PRN PRN 05/19 201 5 AC 05/20 Acetaminophen PO 07/20 1300 2244 Zolpidem Tartrate 5 MG BEDTIME PRN PRN 05/19 2 000 AC 05/23 PO 06/19 1300 202 Recent Impressions-Last 72 Hrs RADIOLOGY - XR HIP W/PEL UNI 2+V LT 05/21 1735 Report Impression - Status: SIGNED Entered: 05/21/2020 1838 IMPRESSION: 1. There is no acute osseous fracture or disloca tion. The hip joint spaces are preserved. Impression By: [email or web address] - James Kitchen D.O. CAT SCAN - CT LOWER EXTRM W/O C RT 05/23 1728 Report Impression - Status: SIGNED Entered: 05/23/2020 1806 IMPRESSION: Above the knee amputation changes wi th complex soft tissue fluid collection at the stump site. There is los s of fatty medullary density at the stump site. Osteomyelitis is not excluded. Correlate with MRI as clinically indicated. SL: SG-H Impression By: [email or web address] - Dominic Mena M.D. Vital Signs Date Temp Pulse Resp B/P B/P Mean Pulse Ox FiO2 05/23 37.0 65-69 16-18 145/72 96.4 93-95 Last Documented: Result Date Time Pulse Ox 95 05/23 2008 B/P 145/72 05/23 2008 B/P Mean 96.4 05/23 2008 Temp 37.0 05/23 2008 Pulse 69 05/23 2008 Resp 16 05/23 2008 O2 Delivery Room air 05/22 2248 24 hour I O ending at 0700: 05/23 0700 05/22 1900 Intake Total 360 Output Total 600 Balance -240 Intake, Oral 360 Output, Urine 600 PATIENT WEIGHT: Weight (lb): 171 Weight (oz): 12.16 Weight (kg): 77.909 Physical Exam General appearance: alert, awake Neck: no JVD Cardiovascular: regular rate rhythm Respiratory: aerating well, clear to auscultatio n Abdomen: non-tender, normal bowel sounds, soft Extremities: Extremities: RT AKA Neuro/CUSTODIAN MANAGER: alert, oriented x 3 Skin: dry, normal temperature Psychiatry: normal judgement/insight Diagnosis, Assessment Plan Free Text DxA P Notes Free text DxA P notes: Assessment: 1.Mechanical fall 2.Traumatic brain injury with subdural hematoma 3. Right AKA pulmonary 2020 4. IMpaired mobility/Impaired gait 5. History of depression 6. Generalized weakness 7. Phantom pain 8. End-stage renal disease on hemodialysis 3 day s a week 9. Anemia 10. History of coronary artery disease, hyperten willy, and hyperlipidemia 05/21/20 Patient's doing well Sitting in a wheelchair Participating in therapy Family visiting at the bedside 05/22/20 Patient participating in therapy daily Reportedly patient is depressed He answered all my questions but seems to be sad May 23, 2020 No leukocytosis, anemia Continue to monitor renal function CT of the right femur without contrast: [id number] amputation changes with complex soft tissue fluid collection at the stump site. There is loss of fatty medullary density at the stump site. Osteomyelit is is not excluded. Correlate with MRI. Continue wound care Plan of care: -Continue with comprehensive inpatient rehabilit [facility] rehab team -Pain control -Fall precaution -DVT prophylaxis subcu heparin -GI prophylaxis patient currently on Protonix -Pain control as pain management -Seizure precaution patient on Keppra -Continues present medications -Monitor labs -Plan of care discussed with the patient, galina palma's nurse, and Dr. Cavazos. Electronically Signed by Javier Meek NP on 0 05/26/20 at 0223 RPT #:[id number] END OF REPORT 2020-05-23 23:17:00-00:00 [facility] Internal Medicine Prog. Note REPORT#:[id number] REPORT STATUS: Signed DATE:05/23/20 TIME: 2316 PATIENT: DARIEN GROSSMAN UNIT #: [id number] ROOM/BED: [place] [address] : 45 AGE: 74 SEX: M ATTEND: Rosa Curtis MD ADM AUTHOR: Javier Meek NP * ALL edits or amendments must be made on the C-Note/computer document * Javier Meek 05/23/20 2317: Subjective Chief Complaint: Right AKA Impaired functional mobility Recurrent falls Review of Systems Constitutional: Denies: chills, fever. ENT: Denies: earache, nasal congestion, sore throat. Respiratory: Denies: hemoptysis, parox no cturnal dyspnea, pleurisy, pleuritic pain, pneumonia , SOB, wheezing. Cardiovascular: Denies: chest pain, palpitations. GI: Denies: abdominal pain, nausea, vomiting. : Denies: flank pain, frequency, hematuria. Musculoskeletal: Denies: extremity pain, extr emity swelling, joint pain, lumbar pain, neck pain. Neuro: Denies: change in LOC, confusion, dizziness, foc al weakness, gait problem, headache, lightheaded, numbness, seizure, slurre d speech, spinning sensation, syncope, unable to speak, vision change. Psych: Denies: agitation, anxiety, auditory hallucinati on, change in mental status, confusion, delusional, depre ssion, homicidal ideation, hostile, insomnia, stress , suicidal ideation, visual hallucination. All systems rev neg: except as marked Objective General VS/I O: Laboratory Tests 05/23/20 1300: [Embedded Image Not Available] 05/23/20 1300: [Embedded Image Not Available] 05/22/20 0535: [Embedded Image Not Available] Laboratory Tests 05/23 05/23 05/22 05/22 05/21 1300 1300 0535 0535 0550 Chemistry Sodium (134 - 147 mEq/L) 133 L 137 Potassium (3.4 - 5.0 mEq/L) 4.1 3.6 Chloride (100 - 108 mEq/L) 97 L 97 L Carbon Dioxide (21 - 33 mEq/l) 27 32 Anion Gap (0 - 20) 13 11 BUN (7 - 18 mg/dL) 54 H 31 H Creatinine (0.6 - 1.3 mg/dL) 4.5 H 3.4 H Glomerular Filtr Rate (70 - 80) 12.9 L 17.8 L Glucose (70 - 110 mg/dL) 200 H 84 Calcium (8.0 - 10.5 mg/dL) 9.6 9.1 Phosphorus (2.5 - 4.9 MG/DL) 3.9 C-Reactive Protein (<10.0 mg/L) 192.0 H Albumin (3.4 - 5.0 g/dL) 3.20 L Prealbumin (16.0 - 40.0 mg/dL) 14.3 L 13.1 L Laboratory Tests 05/23 05/22 05/22 05/21 1300 0535 0535 0550 Hematology WBC (4.5 - 11.0 x10 3/uL) 9.7 12.5 H 12.3 H RBC (4.00 - 5.60 x10 6/uL) 3.31 L 3.42 L 3.09 L Hgb (12.5 - 16.9 g/dL) 9.5 L 9.9 L 8.9 L Hct (37.5 - 50.7 %) 29.6 L 31.1 L 28.3 L MCV (81.0 - 99.0 fL) 89.4 90.9 91.6 MCH (27.0 - 33.0 pg) 28.7 28.9 28.8 MCHC (33.0 - 37.0 g/dL) 32.1 L 31.8 L 31.4 L RDW (11.5 - 14.5 %) 14.4 14.6 H 14.4 Plt Count (150 - 400 x10 3/uL) 395 412 H 373 MPV (7.0 - 9.0 fL) 8.3 8.6 8.8 Neut % (Auto) (56.0 - 77.0 %) 78.9 H 75.3 74.4 Lymph % (Auto) (14.0 - 32.0 %) 7.0 L 7.6 L 9.4 L Dolores % (Auto) (4.8 - 9.0 %) 7.2 9.8 H 10.2 H Eos % (Auto) (0.3 - 3.7 %) 5.9 H 6.3 H 5.2 H Baso % (Auto) (0.0 - 2.0 %) 0.4 0.4 0.3 Neut # (Auto) (2.0 - 7.6 x10 3/uL) 7.67 H 9.40 H 9.13 H Lymph # (Auto) (1.0 - 3.8 x10 3/uL) 0.68 L 0.95 L 1.16 Dolores # (Auto) (0.1 - 0.8 x10 3/uL) 0.70 1.23 H 1.25 H Eos # (Auto) (0.0 - 0.2 x10 3/uL) 0.57 H 0.79 H 0.64 H Baso # (Auto) (0.0 - 0.2 x10 3/uL) 0.04 0.05 0. 04 Abs Immat Gran (auto) (0.00 - 0.03 x10 3/uL) 0. 06 H 0.08 H 0.06 H Add Manual Diff NO NO NO Immature Gran % (0.0 - 2.0 %) 0.6 0.6 0.5 Nucleated RBC % (0 - 0 %) 0.0 0.0 0.0 Nucleated RBCs # (Man) (0.0 - 0.1 x10 3/uL) 0.0 0 0.00 0.00 ESR Westergren (0 - 15 mm/hr) 114 H Microbiology Date/Time Procedure - Status Source Growth 05/21 1744 Gram Stain - COMP WND OTHER Chemistry: 05/23 05/23 1300 1300 Chemistry Sodium (134 - 147 mEq/L) 133 L Potassium (3.4 - 5.0 mEq/L) 4.1 Chloride (100 - 108 mEq/L) 97 L Carbon Dioxide (21 - 33 mEq/l) 27 BUN (7 - 18 mg/dL) 54 H Creatinine (0.6 - 1.3 mg/dL) 4.5 H Glucose (70 - 110 mg/dL) 200 H Calcium (8.0 - 10.5 mg/dL) 9.6 Phosphorus (2.5 - 4.9 MG/DL) 3.9 Albumin (3.4 - 5.0 g/dL) 3.20 L Microbiology: 05/21 1744 WND OTHER: Gram Stain - COMP 05/21 0445 LEG: Wound Culture - RES PSEUDOMONAS AERUGINOSA Vital Signs: Date Time Temp Pulse Resp B/P B/P Pulse O2 O2 F low FiO2 Mean Ox Delivery Rate 05/23 2008 37.0 69 16 145/72 96.4 95 05/23 0709 37.0 65 18 145/72 96.4 93 05/23 0700 05/22 2300 05/22 1500 Intake Total 240 120 Output Total 400 200 Balance -160 -80 Intake, Oral 240 120 Output, Urine 400 200 Current Medications Sig/Tatum Start time Last Medication Dose Route Stop Time Status Admin Sertraline HCl 25 MG BEDTIME 05/23 2100 AC 05/12 2 PO 06/22 2058 2209 Albumin Human 12.5 GM ASDIR PRN 05/23 1415 AC IV 06/23 141 Lidocaine HCl 0.5 ML ASDIR PRN 05/23 1415 CKD I-DERMAL 06/23 1413 Mannitol 12.5 GM ASDIR PRN 05/23 1415 AC IV 06/23 1413 Sodium Chloride 2,000 ML ASDIR PRN 05/23 1415 A C 05/23 IV 06/23 1413 1439 Sodium Chloride 10 ML ASDIR PRN 05/23 1415 AC 0 05/23 IV 06/22 1414 1440 Sodium Chloride 250 ML ASDIR PRN 05/23 1415 AC IV 06/22 1414 Piperacillin Sod/ 3.375 GM Q12H 05/23 1300 AC 0 05/23 Tazobactam Sod IV 05/30 1259 1751 Sodium Chloride 100 ML Collagenase 1 APPLIC DAILY 05/22 899 AC 05/23 TOPICAL 06/21 0859 0801 Cefepime HCl 1 GM Q12H 05/21 2099 DC 05/23 Sodium Chloride 10 ML IV 06/04 205 0803 Miscellaneous 1 EACH ASDIR 05/21 1145 DC Information IV 06/20 1144 Lidocaine 1 PATCH DAILY 05/21 899 AC 05/23 TOPICAL 06/20 0859 0805 Amitriptyline HCl 10 MG BEDTIME 05/20 2099 AC 0 05/23 PO 06/19 Triamcinolone 40 MG PROCEDURE 05/20 1944 CKD Acetonide IM 06/20 1943 Aspirin 81 MG DAILY 05/20 899 AC 05/23 PO 06/19 1300 0803 Clopidogrel Bisulfate 75 MG DAILY 05/20 899 AC 05/23 PO 06/19 1300 0803 Furosemide 40 MG DAILY 05/20 899 AC 05/23 PO 06/19 1300 0804 Polyethylene Glycol 17 GM DAILY 05/20 899 AC 0 05/21 PO 06/19 1300 1016 Senna 1 TAB DAILY 05/20 899 CKD 05/21 PO 06/19 1300 1015 Venlafaxine HCl 75 MG DAILY 05/20 899 AC 05/23 PO 06/19 1300 0801 Acetaminophen 650 MG Q6H PRN PRN 05/20 0845 AC PO 06/19 0844 Hydralazine HCl 10 MG Q6H PRN PRN 05/20 0845 AC PO 06/19 0844 Ondansetron HCl 4 MG TID PRN PRN 05/20 0845 AC SL 06/19 0844 Heparin Sodium 5,000 UNIT Q8H 05/19 2199 AC SUBQ 06/19 1300 2209 Buspirone HCl 10 MG BEDTIME 05/19 2099 DC 05/23 PO 06/19 1300 2024 Epoetin Donny-epbx 4,000 UNIT TuThSa@2100 05/19 2100 AC 05/21 SUBQ 06/19 1300 2143 Gabapentin 300 MG BEDTIME 05/19 2099 AC 05/23 PO 06/19 1300 2024 Metoprolol Tartrate 25 MG BID 05/19 2099 AC PO 06/19 1300 2023 Trazodone HCl 150 MG BEDTIME 05/19 2100 AC 05/12 2 PO 06/19 1300 2022 Hydrocodone Bitart/ 1 TAB Q4H PRN PRN 05/19 201 5 AC 05/20 Acetaminophen PO 07/20 1300 2244 Zolpidem Tartrate 5 MG BEDTIME PRN PRN 05/19 20 00 AC 05/23 PO 06/19 1300 2022 Recent Impressions-Last 72 Hrs RADIOLOGY - XR HIP W/PEL UNI 2+V LT 05/21 1735 Report Impression - Status: SIGNED Entered: 05/21/2020 1838 IMPRESSION: 1. There is no acute osseous fracture or disloca tion. The hip joint spaces are preserved. Impression By: [email or web address] - James Kitchen D.O. CAT SCAN - CT LOWER EXTRM W/O C RT 05/23 1728 Report Impression - Status: SIGNED Entered: 05/23/2020 1806 IMPRESSION: Above the knee amputation changes wi th complex soft tissue fluid collection at the stump site. There is los s of fatty medullary density at the stump site. Osteomyelitis is not excluded. Correlate with MRI as clinically indicated. SL: SG-H Impression By: [email or web address] - Dominic Mena M.D. Vital Signs Date Temp Pulse Resp B/P B/P Mean Pulse Ox FiO2 05/23 37.0 65-69 16-18 145/72 96.4 93-95 Last Documented: Result Date Time Pulse Ox 95 05/23 2008 B/P 145/72 05/23 2008 B/P Mean 96.4 05/23 2008 Temp 37.0 05/23 2008 Pulse 69 05/23 2008 Resp 16 05/23 2008 O2 Delivery Room air 05/22 2248 24 hour I O ending at 0700: 05/23 0700 05/22 1900 Intake Total 360 Output Total 600 Balance -240 Intake, Oral 360 Output, Urine 600 PATIENT WEIGHT: Weight (lb): 171 Weight (oz): 12.16 Weight (kg): 77.909 Physical Exam General appearance: alert, awake Neck: no JVD Cardiovascular: regular rate rhythm Respiratory: aerating well, clear to auscultatio n Abdomen: non-tender, normal bowel sounds, soft Extremities: Extremities: RT AKA Neuro/CUSTODIAN MANAGER: alert, oriented x 3 Skin: dry, normal temperature Psychiatry: normal judgement/insight Diagnosis, Assessment Plan Free Text DxA P Notes Free text DxA P notes: Assessment: 1.Mechanical fall 2.Traumatic brain injury with subdural hematoma 3. Right AKA pulmonary 2020 4. IMpaired mobility/Impaired gait 5. History of depression 6. Generalized weakness 7. Phantom pain 8. End-stage renal disease on hemodialysis 3 day s a week 9. Anemia 10. History of coronary artery disease, hyperten willy, and hyperlipidemia 05/21/20 Patient's doing well Sitting in a wheelchair Participating in therapy Family visiting at the bedside 05/22/20 Patient participating in therapy daily Reportedly patient is depressed He answered all my questions but seems to be sad May 23, 2020 No leukocytosis, anemia Continue to monitor renal function CT of the right femur without contrast: [id number] amputation changes with complex soft tissue fluid collection at the stump site. There is loss of fatty medullary density at the stump site. Osteomyelit is is not excluded. Correlate with MRI. Continue wound care Plan of care: -Continue with comprehensive inpatient rehabilit [facility] rehab team -Pain control -Fall precaution -DVT prophylaxis subcu heparin -GI prophylaxis patient currently on Protonix -Pain control as pain management -Seizure precaution patient on Keppra -Continues present medications -Monitor labs -Plan of care discussed with the patient, galina franks nurse, and Dr. Cavazos. Danny Cavazos 05/26/202128: Attestations Physician Attestation Agree w/findings plan: I agree with the findings and plan as documented by JOSE Meek. Plan of care coordinated with JOSE Meek. Pertinent labs, Imaging, and store sales consultant evaluations reviewed. 74-year-old male was admitted to inpatient rehab for comprehensive rehabilitation. He has no leukocytosis or anemia today. We will continue to monitor his renal function. CT scan of the right femur without contrast was obtained, which showed [id number] amputation changes with complex soft tissue fluid collection at the stump site. There is loss of fatty medullary density at the stump site. Osteomyelitis is not excluded. Correlate with MRI. We will continue with wound care. We will continue with comprehensive inpatient rehabilitation was per rehab team, pain control, fall precautions, DVT prophylaxis with subcu heparin, GI prophylaxis w ith Protonix, pain control as pain management, seizure precautions with Keppra , and present medications. We will continue to monitor his labs. Electronically Signed by Javier Meek NP on 0 05/26/20 at 0223 RPT #:[id number] END OF REPORT 2020-05-23 23:17:00-00:00 [facility] Internal Medicine Prog. Note REPORT#:[id number] REPORT STATUS: Signed DATE:05/23/20 TIME: 2316 PATIENT: DARIEN GROSSMAN UNIT #: [id number] ROOM/BED: [place] [address] : 45 AGE: 74 SEX: M ATTEND: Rosa Curtis MD ADM AUTHOR: Javier Meek NP * ALL edits or amendments must be made on the C-Note/computer document * Javier Meek 05/23/20 2317: Subjective Chief Complaint: Right AKA Impaired functional mobility Recurrent falls Review of Systems Constitutional: Denies: chills, fever. ENT: Denies: earache, nasal congestion, sore throat. Respiratory: Denies: hemoptysis, parox no cturnal dyspnea, pleurisy, pleuritic pain, pneumonia , SOB, wheezing. Cardiovascular: Denies: chest pain, palpitations. GI: Denies: abdominal pain, nausea, vomiting. : Denies: flank pain, frequency, hematuria. Musculoskeletal: Denies: extremity pain, extr emity swelling, joint pain, lumbar pain, neck pain. Neuro: Denies: change in LOC, confusion, dizziness, foc al weakness, gait problem, headache, lightheaded, numbness, seizure, slurre d speech, spinning sensation, syncope, unable to speak, vision change. Psych: Denies: agitation, anxiety, auditory hallucinati on, change in mental status, confusion, delusional, depre ssion, homicidal ideation, hostile, insomnia, stress , suicidal ideation, visual hallucination. All systems rev neg: except as marked Objective General VS/I O: Laboratory Tests 05/23/20 1300: [Embedded Image Not Available] 05/23/20 1300: [Embedded Image Not Available] 05/22/20 0535: [Embedded Image Not Available] Laboratory Tests 05/23 05/23 05/22 05/22 05/21 1300 1300 0535 0535 0550 Chemistry Sodium (134 - 147 mEq/L) 133 L 137 Potassium (3.4 - 5.0 mEq/L) 4.1 3.6 Chloride (100 - 108 mEq/L) 97 L 97 L Carbon Dioxide (21 - 33 mEq/l) 27 32 Anion Gap (0 - 20) 13 11 BUN (7 - 18 mg/dL) 54 H 31 H Creatinine (0.6 - 1.3 mg/dL) 4.5 H 3.4 H Glomerular Filtr Rate (70 - 80) 12.9 L 17.8 L Glucose (70 - 110 mg/dL) 200 H 84 Calcium (8.0 - 10.5 mg/dL) 9.6 9.1 Phosphorus (2.5 - 4.9 MG/DL) 3.9 C-Reactive Protein (<10.0 mg/L) 192.0 H Albumin (3.4 - 5.0 g/dL) 3.20 L Prealbumin (16.0 - 40.0 mg/dL) 14.3 L 13.1 L Laboratory Tests 05/23 05/22 05/22 05/21 1300 0535 0535 0550 Hematology WBC (4.5 - 11.0 x10 3/uL) 9.7 12.5 H 12.3 H RBC (4.00 - 5.60 x10 6/uL) 3.31 L 3.42 L 3.09 L Hgb (12.5 - 16.9 g/dL) 9.5 L 9.9 L 8.9 L Hct (37.5 - 50.7 %) 29.6 L 31.1 L 28.3 L MCV (81.0 - 99.0 fL) 89.4 90.9 91.6 MCH (27.0 - 33.0 pg) 28.7 28.9 28.8 MCHC (33.0 - 37.0 g/dL) 32.1 L 31.8 L 31.4 L RDW (11.5 - 14.5 %) 14.4 14.6 H 14.4 Plt Count (150 - 400 x10 3/uL) 395 412 H 373 MPV (7.0 - 9.0 fL) 8.3 8.6 8.8 Neut % (Auto) (56.0 - 77.0 %) 78.9 H 75.3 74.4 Lymph % (Auto) (14.0 - 32.0 %) 7.0 L 7.6 L 9.4 L Dolores % (Auto) (4.8 - 9.0 %) 7.2 9.8 H 10.2 H Eos % (Auto) (0.3 - 3.7 %) 5.9 H 6.3 H 5.2 H Baso % (Auto) (0.0 - 2.0 %) 0.4 0.4 0.3 Neut # (Auto) (2.0 - 7.6 x10 3/uL) 7.67 H 9.40 H 9.13 H Lymph # (Auto) (1.0 - 3.8 x10 3/uL) 0.68 L 0.95 L 1.16 Dolores # (Auto) (0.1 - 0.8 x10 3/uL) 0.70 1.23 H 1.25 H Eos # (Auto) (0.0 - 0.2 x10 3/uL) 0.57 H 0.79 H 0.64 H Baso # (Auto) (0.0 - 0.2 x10 3/uL) 0.04 0.05 0. 04 Abs Immat Gran (auto) (0.00 - 0.03 x10 3/uL) 0. 06 H 0.08 H 0.06 H Add Manual Diff NO NO NO Immature Gran % (0.0 - 2.0 %) 0.6 0.6 0.5 Nucleated RBC % (0 - 0 %) 0.0 0.0 0.0 Nucleated RBCs # (Man) (0.0 - 0.1 x10 3/uL) 0.0 0 0.00 0.00 ESR Westergren (0 - 15 mm/hr) 114 H Microbiology Date/Time Procedure - Status Source Growth 05/21 1745 Gram Stain - COMP WND OTHER Chemistry: 05/23 05/23 1300 1300 Chemistry Sodium (134 - 147 mEq/L) 133 L Potassium (3.4 - 5.0 mEq/L) 4.1 Chloride (100 - 108 mEq/L) 97 L Carbon Dioxide (21 - 33 mEq/l) 27 BUN (7 - 18 mg/dL) 54 H Creatinine (0.6 - 1.3 mg/dL) 4.5 H Glucose (70 - 110 mg/dL) 200 H Calcium (8.0 - 10.5 mg/dL) 9.6 Phosphorus (2.5 - 4.9 MG/DL) 3.9 Albumin (3.4 - 5.0 g/dL) 3.20 L Microbiology: 05/21 1745 WND OTHER: Gram Stain - COMP 05/21 05 LEG: Wound Culture - RES PSEUDOMONAS AERUGINOSA Vital Signs: Date Time Temp Pulse Resp B/P B/P Pulse O2 O2 F low FiO2 Mean Ox Delivery Rate 05/23 2008 37.0 69 16 145/72 96.4 95 05/23 0709 37.0 65 18 145/72 96.4 93 05/23 0700 05/22 2300 05/22 1500 Intake Total 240 120 Output Total 400 200 Balance -160 -80 Intake, Oral 240 120 Output, Urine 400 200 Current Medications Sig/Tatum Start time Last Medication Dose Route Stop Time Status Admin Sertraline HCl 25 MG BEDTIME 05/23 2100 AC 05/12 2 PO 06/22 2058 2209 Albumin Human 12.5 GM ASDIR PRN 05/23 1415 AC IV 06/23 1413 Lidocaine HCl 0.5 ML ASDIR PRN 05/23 1415 CKD I-DERMAL 06/23 1413 Mannitol 12.5 GM ASDIR PRN 05/23 1415 AC IV 06/23 1413 Sodium Chloride 2,000 ML ASDIR PRN 05/23 1415 A C 05/23 IV 06/23 1413 1439 Sodium Chloride 10 ML ASDIR PRN 05/23 1415 AC 05/23 IV 06/22 1414 1440 Sodium Chloride 250 ML ASDIR PRN 05/23 1415 AC IV 06/22 1414 Piperacillin Sod/ 3.375 GM Q12H 05/23 1300 AC 0 05/23 Tazobactam Sod IV 05/30 1259 1751 Sodium Chloride 100 ML Collagenase 1 APPLIC DAILY 05/22 09 AC 05/23 TOPICAL 06/21 0859 0801 Cefepime HCl 1 GM Q12H 05/21 2100 DC 05/23 Sodium Chloride 10 ML IV 06/04 205 0803 Miscellaneous 1 EACH ASDIR 05/21 1145 DC Information IV 06/20 1144 Lidocaine 1 PATCH DAILY 05/21 09 AC 05/23 TOPICAL 06/20 0859 0805 Amitriptyline HCl 10 MG BEDTIME 05/20 2100 AC 0 05/23 PO 06/19 Triamcinolone 40 MG PROCEDURE 05/20 1944 CKD Acetonide IM 06/20 1943 Aspirin 81 MG DAILY 05/20 899 AC 05/23 PO 06/19 1300 0803 Clopidogrel Bisulfate 75 MG DAILY 05/20 899 AC 05/23 PO 06/19 1300 0803 Furosemide 40 MG DAILY 05/20 899 AC 05/23 PO 06/19 1300 0804 Polyethylene Glycol 17 GM DAILY 05/20 899 AC 0 05/21 PO 06/19 1300 1016 Senna 1 TAB DAILY 05/20 899 CKD 05/21 PO 06/19 1300 1015 Venlafaxine HCl 75 MG DAILY 05/20 899 AC 05/23 PO 06/19 1300 0801 Acetaminophen 650 MG Q6H PRN PRN 05/20 0845 AC PO 06/19 0844 Hydralazine HCl 10 MG Q6H PRN PRN 05/20 0845 AC PO 06/19 0844 Ondansetron HCl 4 MG TID PRN PRN 05/20 0845 AC SL 06/19 0844 Heparin Sodium 5,000 UNIT Q8H 05/19 2200 AC SUBQ 06/19 1300 2209 Buspirone HCl 10 MG BEDTIME 05/19 2100 DC 05/23 PO 06/19 1300 202 Epoetin Donny-epbx 4,000 UNIT TuThSa@2100 05/19 2100 AC 05/21 SUBQ 06/19 1300 2143 Gabapentin 300 MG BEDTIME 05/19 2100 AC 05/23 PO 06/19 1300 2024 Metoprolol Tartrate 25 MG BID 05/19 2100 AC PO 06/19 1300 2023 Trazodone HCl 150 MG BEDTIME 05/19 2100 AC 05/12 2 PO 06/19 1300 2023 Hydrocodone Bitart/ 1 TAB Q4H PRN PRN 05/19 201 5 AC 05/20 Acetaminophen PO 07/20 1300 2244 Zolpidem Tartrate 5 MG BEDTIME PRN PRN 05/19 20 00 AC 05/23 PO 06/19 1300 202 Recent Impressions-Last 72 Hrs RADIOLOGY - XR HIP W/PEL UNI 2+V LT 05/21 1735 Report Impression - Status: SIGNED Entered: 05/21/2020 1838 IMPRESSION: 1. There is no acute osseous fracture or disloca tion. The hip joint spaces are preserved. Impression By: [email or web address] - James Kitchen D.O. CAT SCAN - CT LOWER EXTRM W/O C RT 05/23 1728 Report Impression - Status: SIGNED Entered: 05/23/2020 1806 IMPRESSION: Above the knee amputation changes wi th complex soft tissue fluid collection at the stump site. There is los s of fatty medullary density at the stump site. Osteomyelitis is not excluded. Correlate with MRI as clinically indicated. SL: SG-H Impression By: [email or web address] - Dominic Mena M.D. Vital Signs Date Temp Pulse Resp B/P B/P Mean Pulse Ox FiO2 05/23 37.0 65-69 16-18 145/72 96.4 93-95 Last Documented: Result Date Time Pulse Ox 95 05/23 2008 B/P 145/72 05/23 2008 B/P Mean 96.4 05/23 2008 Temp 37.0 05/23 2008 Pulse 69 05/23 2008 Resp 16 05/23 2008 O2 Delivery Room air 05/22 2249 24 hour I O ending at 0700: 05/23 0700 05/22 1900 Intake Total 360 Output Total 600 Balance -240 Intake, Oral 360 Output, Urine 600 PATIENT WEIGHT: Weight (lb): 171 Weight (oz): 12.16 Weight (kg): 77.909 Physical Exam General appearance: alert, awake Neck: no JVD Cardiovascular: regular rate rhythm Respiratory: aerating well, clear to auscultatio n Abdomen: non-tender, normal bowel sounds, soft Extremities: Extremities: RT AKA Neuro/CUSTODIAN MANAGER: alert, oriented x 3 Skin: dry, normal temperature Psychiatry: normal judgement/insight Diagnosis, Assessment Plan Free Text DxA P Notes Free text DxA P notes: Assessment: 1.Mechanical fall 2.Traumatic brain injury with subdural hematoma 3. Right AKA pulmonary 2020 4. IMpaired mobility/Impaired gait 5. History of depression 6. Generalized weakness 7. Phantom pain 8. End-stage renal disease on hemodialysis 3 day s a week 9. Anemia 10. History of coronary artery disease, hyperten willy, and hyperlipidemia 05/21/20 Patient's doing well Sitting in a wheelchair Participating in therapy Family visiting at the bedside 05/22/20 Patient participating in therapy daily Reportedly patient is depressed He answered all my questions but seems to be sad May 23, 2020 No leukocytosis, anemia Continue to monitor renal function CT of the right femur without contrast: [id number] amputation changes with complex soft tissue fluid collection at the stump site. There is loss of fatty medullary density at the stump site. Osteomyelit is is not excluded. Correlate with MRI. Continue wound care Plan of care: -Continue with comprehensive inpatient rehabilit [facility] rehab team -Pain control -Fall precaution -DVT prophylaxis subcu heparin -GI prophylaxis patient currently on Protonix -Pain control as pain management -Seizure precaution patient on Keppra -Continues present medications -Monitor labs -Plan of care discussed with the patient, galina palma's nurse, and Dr. Cavazos. Danny Cavazos 05/26/202128: Attestations Physician Attestation Agree w/findings plan: Patient seen and examined on 05/23/2020. I agree with the findings and plan as documented by JOSE Meek. Plan of care coordinat ed with JOSE Meek. Pertinent labs, Imaging, and store sales consultant evaluations review ed. 74-year-old male was admitted to inpatient rehab for comprehensive rehabilitation. He has no leukocytosis or anemia today. We will continue to monitor his renal function. CT scan of the right femur without contrast was obtained, which showed [id number] amputation changes with complex soft tissue fluid collection at the stump site. There is loss of fatty medullary density at the stump site. Osteomyelitis is not excluded. Correlate with MRI. We will continue with wound care. We will continue with comprehensive inpatient rehabilitation was per rehab team, pain control, fall precautions, DVT prophylaxis with subcu heparin, GI prophylaxis w ith Protonix, pain control as pain management, seizure precautions with Keppra , and present medications. We will continue to monitor his labs. Electronically Signed by Javier Meek NP on 0 05/26/20 at 0223 RPT #:[id number] END OF REPORT 2020-05-23 23:17:00-00:00 [facility]) Internal Medicine Prog. Note REPORT#:[id number] REPORT STATUS: Signed DATE:05/23/20 TIME: 2316 PATIENT: DARIEN GROSSMAN UNIT #: [id number] ROOM/BED: [place] [address] : 45 AGE: 74 SEX: M ATTEND: Rosa Curtis MD ADM AUTHOR: Javier Meek MONOGRAM MAKER * ALL edits or amendments must be made on the C-Note/computer document * Javier Meek 05/23/202316: Subjective Chief Complaint: Right AKA Impaired functional mobility Recurrent falls Review of Systems Constitutional: Denies: chills, fever. ENT: Denies: earache, nasal congestion, sore throat. Respiratory: Denies: hemoptysis, parox no cturnal dyspnea, pleurisy, pleuritic pain, pneumonia , SOB, wheezing. Cardiovascular: Denies: chest pain, palpitations. GI: Denies: abdominal pain, nausea, vomiting. : Denies: flank pain, frequency, hematuria. Musculoskeletal: Denies: extremity pain, extr emity swelling, joint pain, lumbar pain, neck pain. Neuro: Denies: change in LOC, confusion, dizziness, foc al weakness, gait problem, headache, lightheaded, numbness, seizure, slurre d speech, spinning sensation, syncope, unable to speak, vision change. Psych: Denies: agitation, anxiety, auditory hallucinati on, change in mental status, confusion, delusional, depre ssion, homicidal ideation, hostile, insomnia, stress , suicidal ideation, visual hallucination. All systems rev neg: except as marked Objective General VS/I O: Laboratory Tests 05/23/20 1300: [Embedded Image Not Available] 05/23/20 1300: [Embedded Image Not Available] 05/22/20 0535: [Embedded Image Not Available] Laboratory Tests 05/23 05/23 05/22 05/22 05/21 1300 1300 0535 0535 0550 Chemistry Sodium (134 - 147 mEq/L) 133 L 137 Potassium (3.4 - 5.0 mEq/L) 4.1 3.6 Chloride (100 - 108 mEq/L) 97 L 97 L Carbon Dioxide (21 - 33 mEq/l) 27 32 Anion Gap (0 - 20) 13 11 BUN (7 - 18 mg/dL) 54 H 31 H Creatinine (0.6 - 1.3 mg/dL) 4.5 H 3.4 H Glomerular Filtr Rate (70 - 80) 12.9 L 17.8 L Glucose (70 - 110 mg/dL) 200 H 84 Calcium (8.0 - 10.5 mg/dL) 9.6 9.1 Phosphorus (2.5 - 4.9 MG/DL) 3.9 C-Reactive Protein (<10.0 mg/L) 192.0 H Albumin (3.4 - 5.0 g/dL) 3.20 L Prealbumin (16.0 - 40.0 mg/dL) 14.3 L 13.1 L Laboratory Tests 05/23 05/22 05/22 05/21 1300 0535 0535 0550 Hematology WBC (4.5 - 11.0 x10 3/uL) 9.7 12.5 H 12.3 H RBC (4.00 - 5.60 x10 6/uL) 3.31 L 3.42 L 3.09 L Hgb (12.5 - 16.9 g/dL) 9.5 L 9.9 L 8.9 L Hct (37.5 - 50.7 %) 29.6 L 31.1 L 28.3 L MCV (81.0 - 99.0 fL) 89.4 90.9 91.6 MCH (27.0 - 33.0 pg) 28.7 28.9 28.8 MCHC (33.0 - 37.0 g/dL) 32.1 L 31.8 L 31.4 L RDW (11.5 - 14.5 %) 14.4 14.6 H 14.4 Plt Count (150 - 400 x10 3/uL) 395 412 H 373 MPV (7.0 - 9.0 fL) 8.3 8.6 8.8 Neut % (Auto) (56.0 - 77.0 %) 78.9 H 75.3 74.4 Lymph % (Auto) (14.0 - 32.0 %) 7.0 L 7.6 L 9.4 L Dolores % (Auto) (4.8 - 9.0 %) 7.2 9.8 H 10.2 H Eos % (Auto) (0.3 - 3.7 %) 5.9 H 6.3 H 5.2 H Baso % (Auto) (0.0 - 2.0 %) 0.4 0.4 0.3 Neut # (Auto) (2.0 - 7.6 x10 3/uL) 7.67 H 9.40 H 9.13 H Lymph # (Auto) (1.0 - 3.8 x10 3/uL) 0.68 L 0.95 L 1.16 Dolores # (Auto) (0.1 - 0.8 x10 3/uL) 0.70 1.23 H 1.25 H Eos # (Auto) (0.0 - 0.2 x10 3/uL) 0.57 H 0.79 H 0.64 H Baso # (Auto) (0.0 - 0.2 x10 3/uL) 0.04 0.05 0. 04 Abs Immat Gran (auto) (0.00 - 0.03 x10 3/uL) 0. 06 H 0.08 H 0.06 H Add Manual Diff NO NO NO Immature Gran % (0.0 - 2.0 %) 0.6 0.6 0.5 Nucleated RBC % (0 - 0 %) 0.0 0.0 0.0 Nucleated RBCs # (Man) (0.0 - 0.1 x10 3/uL) 0.0 0 0.00 0.00 ESR Westergren (0 - 15 mm/hr) 114 H Microbiology Date/Time Procedure - Status Source Growth 05/21 1744 Gram Stain - COMP WND OTHER Chemistry: 05/23 05/23 1300 1300 Chemistry Sodium (134 - 147 mEq/L) 133 L Potassium (3.4 - 5.0 mEq/L) 4.1 Chloride (100 - 108 mEq/L) 97 L Carbon Dioxide (21 - 33 mEq/l) 27 BUN (7 - 18 mg/dL) 54 H Creatinine (0.6 - 1.3 mg/dL) 4.5 H Glucose (70 - 110 mg/dL) 200 H Calcium (8.0 - 10.5 mg/dL) 9.6 Phosphorus (2.5 - 4.9 MG/DL) 3.9 Albumin (3.4 - 5.0 g/dL) 3.20 L Microbiology: 05/21 1744 WND OTHER: Gram Stain - COMP 05/21 1898 LEG: Wound Culture - RES PSEUDOMONAS AERUGINOSA Vital Signs: Date Time Temp Pulse Resp B/P B/P Pulse O2 O2 Flow FiO2 Mean Ox Delivery Rate 05/23 2008 37.0 69 16 145/72 96.4 95 05/23 07 37.0 65 18 145/72 96.4 93 05/23 0700 05/22 2300 05/22 1500 Intake Total 240 120 Output Total 400 200 Balance -160 -80 Intake, Oral 240 120 Output, Urine 400 200 Current Medications Sig/Tatum Start time Last Medication Dose Route Stop Time Status Admin Sertraline HCl 25 MG BEDTIME 05/23 2100 AC PO 06/22 Albumin Human 12.5 GM ASDIR PRN 05/23 1415 AC IV 06/23 1413 Lidocaine HCl 0.5 ML ASDIR PRN 05/23 1415 CKD I-DERMAL 06/23 1413 Mannitol 12.5 GM ASDIR PRN 05/23 1415 AC IV 06/23 1413 Sodium Chloride 2,000 ML ASDIR PRN 05/23 1415 A C 05/23 IV 06/23 1413 1439 Sodium Chloride 10 ML ASDIR PRN 05/23 1415 AC 0 05/23 IV 06/22 1414 1440 Sodium Chloride 250 ML ASDIR PRN 05/23 1415 AC IV 06/22 1414 Piperacillin Sod/ 3.375 GM Q12H 05/23 1300 AC 0 05/23 Tazobactam Sod IV 05/30 1259 1751 Sodium Chloride 100 ML Collagenase 1 APPLIC DAILY 05/22 899 AC 05/23 TOPICAL 06/21 0859 0801 Cefepime HCl 1 GM Q12H 05/21 2100 DC 05/23 Sodium Chloride 10 ML IV 06/04 2058 0803 Miscellaneous 1 EACH ASDIR 05/21 1145 DC Information IV 06/20 1144 Lidocaine 1 PATCH DAILY 05/21 899 AC 05/23 TOPICAL 06/20 0859 0805 Amitriptyline HCl 10 MG BEDTIME 05/20 2100 AC 0 05/23 PO 06/19 Triamcinolone 40 MG PROCEDURE 05/20 1944 CKD Acetonide IM 06/20 1943 Aspirin 81 MG DAILY 05/20 899 AC 05/23 PO 06/19 1300 0803 Clopidogrel Bisulfate 75 MG DAILY 05/20 899 AC 05/23 PO 06/19 1300 0803 Furosemide 40 MG DAILY 05/20 899 AC 05/23 PO 06/19 1300 0804 Polyethylene Glycol 17 GM DAILY 05/20 899 AC 0 05/21 PO 06/19 1300 1016 Senna 1 TAB DAILY 05/20 899 CKD 05/21 PO 06/19 1300 1015 Venlafaxine HCl 75 MG DAILY 05/20 899 AC 05/23 PO 06/19 1300 0801 Acetaminophen 650 MG Q6H PRN PRN 05/20 0845 AC PO 06/19 0844 Hydralazine HCl 10 MG Q6H PRN PRN 05/20 0845 AC PO 06/19 0844 Ondansetron HCl 4 MG TID PRN PRN 05/21 0745 AC SL 06/19 0844 Heparin Sodium 5,000 UNIT Q8H 05/19 2199 AC SUBQ 06/19 1300 220 Buspirone HCl 10 MG BEDTIME 05/19 2099 DC 05/23 PO 06/19 1300 202 Epoetin Donny-epbx 4,000 UNIT TuThSa@2100 05/19 2100 AC 05/21 SUBQ 06/19 1300 2143 Gabapentin 300 MG BEDTIME 05/19 2100 AC 05/23 PO 06/19 1300 202 Metoprolol Tartrate 25 MG BID 05/19 2100 AC PO 06/19 1300 2023 Trazodone HCl 150 MG BEDTIME 05/19 2100 AC 05/12 2 PO 06/19 1300 202 Hydrocodone Bitart/ 1 TAB Q4H PRN PRN 05/19 201 5 AC 05/20 Acetaminophen PO 07/20 1300 2244 Zolpidem Tartrate 5 MG BEDTIME PRN PRN 05/19 20 00 AC 05/23 PO 06/19 1300 2022 Recent Impressions-Last 72 Hrs RADIOLOGY - XR HIP W/PEL UNI 2+V LT 05/21 1735 Report Impression - Status: SIGNED Entered: 05/21/2020 1838 IMPRESSION: 1. There is no acute osseous fracture or disloca tion. The hip joint spaces are preserved. Impression By: [email or web address] - James Kitchen D.O. CAT SCAN - CT LOWER EXTRM W/O C RT 05/23 1728 Report Impression - Status: SIGNED Entered: 05/23/2020 1806 IMPRESSION: Above the knee amputation changes wi th complex soft tissue fluid collection at the stump site. There is los s of fatty medullary density at the stump site. Osteomyelitis is not excluded. Correlate with MRI as clinically indicated. SL: CLEMENTINE Impression By: [email or web address] - Dominic Mena M.D. Vital Signs Date Temp Pulse Resp B/P B/P Mean Pulse Ox FiO2 05/23 37.0 65-69 16-18 145/72 96.4 93-95 Last Documented: Result Date Time Pulse Ox 95 05/23 2008 B/P 145/72 05/23 2008 B/P Mean 96.4 05/23 2008 Temp 37.0 05/23 2008 Pulse 69 05/23 2009 Resp 16 05/23 2008 O2 Delivery Room air 05/22 2249 24 hour I O ending at 0700: 05/23 0700 05/22 1900 Intake Total 360 Output Total 600 Balance -240 Intake, Oral 360 Output, Urine 600 PATIENT WEIGHT: Weight (lb): 171 Weight (oz): 12.16 Weight (kg): 77.909 Physical Exam General appearance: alert, awake Neck: no JVD Cardiovascular: regular rate rhythm Respiratory: aerating well, clear to auscultatio n Abdomen: non-tender, normal bowel sounds, soft Extremities: Extremities: RT AKA Neuro/CUSTODIAN MANAGER: alert, oriented x 3 Skin: dry, normal temperature Psychiatry: normal judgement/insight Diagnosis, Assessment Plan Free Text DxA P Notes Free text DxA P notes: Assessment: 1.Mechanical fall 2.Traumatic brain injury with subdural hematoma 3. Right AKA pulmonary 2020 4. IMpaired mobility/Impaired gait 5. History of depression 6. Generalized weakness 7. Phantom pain 8. End-stage renal disease on hemodialysis 3 day s a week 9. Anemia 10. History of coronary artery disease, hyperten willy, and hyperlipidemia 05/21/20 Patient's doing well Sitting in a wheelchair Participating in therapy Family visiting at the bedside 05/22/20 Patient participating in therapy daily Reportedly patient is depressed He answered all my questions but seems to be sad May 23, 2020 No leukocytosis, anemia Continue to monitor renal function CT of the right femur without contrast: Hxutb-yfu-bqcs amputation changes with complex soft tissue fluid collection at the stump site. There is loss of fatty medullary density at the stump site. Osteomyelit is is not excluded. Correlate with MRI. Continue wound care Plan of care: -Continue with comprehensive inpatient rehabilit [facility] rehab team -Pain control -Fall precaution -DVT prophylaxis subcu heparin -GI prophylaxis patient currently on Protonix -Pain control as pain management -Seizure precaution patient on Keppra -Continues present medications -Monitor labs -Plan of care discussed with the patient, galina marcano nurse, and Dr. Cavazos. Danny Cavazos 05/26/202128: Attestations Physician Attestation Agree w/findings plan: Patient seen and examined on 05/23/2020. I agree with the findings and plan as documented by JOSE Meek. Plan of care coordinat ed with JOSE Meek. Pertinent labs, Imaging, and store sales consultant evaluations review ed. 74-year-old male was admitted to inpatient rehab for comprehensive rehabilitation. He has no leukocytosis or anemia today. We will continue to monitor his renal function. CT scan of the right femur without contrast was obtained, which showed itait-iba-qpij amputation changes with complex soft tissue fluid collection at the stump site. There is loss of fatty medullary density at the stump site. Osteomyelitis is not excluded. Correlate with MRI. We will continue with wound care. We will continue with comprehensive inpatient rehabilitation was per rehab team, pain control, fall precautions, DVT prophylaxis with subcu heparin, GI prophylaxis w ith Protonix, pain control as pain management, seizure precautions with Keppra , and present medications. We will continue to monitor his labs. Electronically Signed by Javier Meek NP on 0 05/26/20 at 0223 Electronically Signed by Danny Keith MD 05/26/20 at 5490 RPT #:[id number] END OF REPORT 2020-05-23 14:11:00-00:00 [facility] ([facility]) Nephrology Progress Note REPORT#:[id number] REPORT STATUS: Signed DATE:05/23/20 TIME: 1410 PATIENT: DARIEN GROSSMAN UNIT #: [id number] ROOM/BED: [place] [address] : 45 AGE: 74 SEX: M ATTEND: Rosa Curtis MD ADM AUTHOR: Merissa Dillon MD * ALL edits or amendments must be made on the el [employer]/computer document * Subjective Chief Complaint: Patient seen and examined. G etting dialysis. c/o being depressed and not on his home antidepressant Objective General VS/I O: Vital Signs: Date Time Temp Pulse Resp B/P B/P Pulse O2 O2 F low FiO2 Mean Ox Delivery Rate 05/23 2008 98.6 69 16 145/72 96.4 95 05/23 07 98.6 65 18 145/72 96.4 93 05/22 2249 97.7 62 16 139/68 91.6 93 Room air 24 hour I O ending at 0700: 05/23 0700 05/22 1900 Intake Total 360 Output Total 600 Balance -240 Intake, Oral 360 Output, Urine 600 PATIENT WEIGHT: Weight (lb): 171 Weight (oz): 12.16 Weight (kg): 77.909 Medications Active Meds + DC'd Last 24 Hrs Sertraline HCl 25 MG BEDTIME PO Albumin Human 12.5 GM ASDIR PRN IV Lidocaine HCl 0.5 ML ASDIR PRN I-DERMAL (CKD) Mannitol 12.5 GM ASDIR PRN IV Sodium Chloride 2,000 ML ASDIR PRN IV Sodium Chloride 10 ML ASDIR PRN IV Sodium Chloride 250 ML ASDIR PRN IV Piperacillin Sod/Tazobactam Sod 3.375 GM Q12H IV Sodium Chloride 100 ML Collagenase 1 APPLIC DAILY TOPICAL Cefepime HCl 1 GM Q12H IV (DC) Sodium Chloride 10 ML Miscellaneous Information 1 EACH ASDIR IV (DC) Lidocaine 1 PATCH DAILY TOPICAL Amitriptyline HCl 10 MG BEDTIME PO Triamcinolone Acetonide 40 MG PROCEDURE IM (CKD) Aspirin 81 MG DAILY PO Clopidogrel Bisulfate 75 MG DAILY PO Furosemide 40 MG DAILY PO Polyethylene Glycol 17 GM DAILY PO Senna 1 TAB DAILY PO (CKD) Venlafaxine HCl 75 MG DAILY PO Acetaminophen 650 MG Q6H PRN PRN PO Hydralazine HCl 10 MG Q6H PRN PRN PO Ondansetron HCl 4 MG TID PRN PRN SL Heparin Sodium 5,000 UNIT Q8H SUBQ Buspirone HCl 10 MG BEDTIME PO (DC) Epoetin Donny-epbx 4,000 UNIT TuThSa@2100 SUBQ Gabapentin 300 MG BEDTIME PO Metoprolol Tartrate 25 MG BID PO Trazodone HCl 150 MG BEDTIME PO Hydrocodone Bitart/Acetaminophen 1 TAB Q4H PRN P RN PO Zolpidem Tartrate 5 MG BEDTIME PRN PRN PO Physical Exam General appearance: alert, awake Head/eyes: atraumatic, normocephalic Cardiovascular: regular rate and rhythm, pedal p ulses present Respiratory: clear to auscultation, normal breat h sounds Abdomen: normal bowel sounds, soft Extremities: no edema, Rt AKA Results Findings/Data: Laboratory Tests 05/23 05/23 1300 1300 Chemistry Sodium (134 - 147 mEq/L) 133 L Potassium (3.4 - 5.0 mEq/L) 4.1 Chloride (100 - 108 mEq/L) 97 L Carbon Dioxide (21 - 33 mEq/l) 27 Anion Gap (0 - 20) 13 BUN (7 - 18 mg/dL) 54 H Creatinine (0.6 - 1.3 mg/dL) 4.5 H Glomerular Filtr Rate (70 - 80) 12.9 L Glucose (70 - 110 mg/dL) 200 H Calcium (8.0 - 10.5 mg/dL) 9.6 Phosphorus (2.5 - 4.9 MG/DL) 3.9 Albumin (3.4 - 5.0 g/dL) 3.20 L Prealbumin (16.0 - 40.0 mg/dL) 14.3 L Laboratory Tests 05/23 1300 Hematology WBC (4.5 - 11.0 x10 3/uL) 9.7 RBC (4.00 - 5.60 x10 6/uL) 3.31 L Hgb (12.5 - 16.9 g/dL) 9.5 L Hct (37.5 - 50.7 %) 29.6 L MCV (81.0 - 99.0 fL) 89.4 MCH (27.0 - 33.0 pg) 28.7 MCHC (33.0 - 37.0 g/dL) 32.1 L RDW (11.5 - 14.5 %) 14.4 Plt Count (150 - 400 x10 3/uL) 395 MPV (7.0 - 9.0 fL) 8.3 Neut % (Auto) (56.0 - 77.0 %) 78.9 H Lymph % (Auto) (14.0 - 32.0 %) 7.0 L Dolores % (Auto) (4.8 - 9.0 %) 7.2 Eos % (Auto) (0.3 - 3.7 %) 5.9 H Baso % (Auto) (0.0 - 2.0 %) 0.4 Neut # (Auto) (2.0 - 7.6 x10 3/uL) 7.67 H Lymph # (Auto) (1.0 - 3.8 x10 3/uL) 0.68 L Dolores # (Auto) (0.1 - 0.8 x10 3/uL) 0.70 Eos # (Auto) (0.0 - 0.2 x10 3/uL) 0.57 H Baso # (Auto) (0.0 - 0.2 x10 3/uL) 0.04 Abs Immat Gran (auto) (0.00 - 0.03 x10 3/uL) 0. 06 H Add Manual Diff NO Immature Gran % (0.0 - 2.0 %) 0.6 Nucleated RBC % (0 - 0 %) 0.0 Nucleated RBCs # (Man) (0.0 - 0.1 x10 3/uL) 0.0 0 Radiology data: Recent Impressions: CAT SCAN - CT LOWER EXTRM W/O C RT 05/23 9538 Report Impression - Status: SIGNED Entered: 05/23/2020 7476 IMPRESSION: Above the knee amputation changes wi th complex soft tissue fluid collection at the stump site. There is los s of fatty medullary density at the stump site. Osteomyelitis is not excluded. Correlate with MRI as clinically indicated. SL: SG-H Impression By: [email or web address] - Dominic Mena M.D. Diagnosis, Assessment Plan Hospital course to date: 1. ESRD 2. AVF infiltration 3. Hypertension 4. Status post fall and acute SDH 5. Anemia of chronic kidney disease 6. Coronary artery disease Plan -HD MWF. HD today, but access got infilt rated and had only 2 hrs of hd. HD for 1.5 hrs tomorrow. -Blood pressure currently stable -Renal diet -Hemoglobin better. On Epogen 3 times weekly -Phos has been stable. -Rehab f/u. Free Text A P: 1. ESRD 2. AVF infiltration 3. Hypertension 4. Status post fall and acute SDH 5. Anemia of chronic kidney disease 6. Coronary artery disease Plan -HD MWF. HD today. Tolerating well -Blood pressure currently stable -Renal diet -Hemoglobin better. On Epogen 3 times weekly -Phos has been stable. -Psych f/u. at 2239 RPT #:[id number] END OF REPORT 2020-05-23 13:46:00-00:00 [facility] ([facility]) Infectious Dis. Progress Note REPORT#:[id number] REPORT STATUS: Signed DATE:05/23/20 TIME: 1346 PATIENT: DARIEN GROSSMAN UNIT #: [id number] ROOM/BED: [place] [address] : 45 AGE: 74 SEX: M ATTEND: Rosa Curtis MD ADM AUTHOR: Jonathan Sheikh NP * ALL edits or amendments must be made on the C-Note/computer document * Subjective Chief Complaint: F/U Rght AKA cellulitis HPI: Patient is a 74-year-old male with past medical history of end-stage renal disease on HD, hypertension, hyperlipide liseth who underwent right kiexg-ids-tfra amputation in March 2020. He was admitted to [facility] after sustaining a fall resulting in a subdural hematoma. He was transferred to rehab on . He was noted to have small amount of gamal inage to his right AKA stump and hence ID was consulted to assist with antibi otics and plan of care. Patient reports: Yes: bowel movement, feeling better. No: complaints, abdominal pain, back pain, burning with urination, cough, diarrhea, fever, headache, nausea, pain, pain controlled, shortness of breath, vomiting, wheez ing. Nursing reports: No: complaints. Review of Systems All systems rev neg: except as marked Objective General VS/I O: Last Documented: Result Date Time Pulse Ox 93 05/23 0709 B/P 145/72 05/23 0709 B/P Mean 96.4 05/23 0709 Temp 98.6 05/23 0709 Pulse 65 05/23 0709 Resp 18 05/23 0709 O2 Delivery Room air 05/229 Vital Signs Date Temp Pulse Resp B/P B/P Mean Pulse Ox FiO2 05/22-05/23 97.6-98.6 62-74 16-20 127-145/67-72 87-96.4 93-95 24 hour I O ending at 0700: 05/23 0700 05/22 1900 Intake Total 360 Output Total 600 Balance -240 Intake, Oral 360 Output, Urine 600 PATIENT WEIGHT: Weight (lb): 171 Weight (oz): 12.16 Weight (kg): 77.909 Physical Exam General appearance: alert, awake, oriented, no a cute distress, pleasant, conversational, mental status normal Wound/incision: Location: Right AKA stump- no erthema or draiange, small a farshad of srgical dehiscence Head/Eyes: atraumatic, normal conjunctiva/sclera ENT: moist mucosal membranes Neck: no JVD Cardiovascular: normal heart sounds Respiratory: clear to auscultation, aerating wel l, symmetric expansion Abdomen: non-tender, normal bowel sounds Neuro/CUSTODIAN MANAGER: alert, oriented X 3 Skin: dry, no rash Results Findings/Data: Laboratory Tests 05/23 05/23 1300 1300 Chemistry Sodium (134 - 147 mEq/L) 133 L Potassium (3.4 - 5.0 mEq/L) 4.1 Chloride (100 - 108 mEq/L) 97 L Carbon Dioxide (21 - 33 mEq/l) 27 Anion Gap (0 - 20) 13 BUN (7 - 18 mg/dL) 54 H Creatinine (0.6 - 1.3 mg/dL) 4.5 H Glomerular Filtr Rate (70 - 80) 12.9 L Glucose (70 - 110 mg/dL) 200 H Calcium (8.0 - 10.5 mg/dL) 9.6 Phosphorus (2.5 - 4.9 MG/DL) 3.9 Albumin (3.4 - 5.0 g/dL) 3.20 L Prealbumin (16.0 - 40.0 mg/dL) 14.3 L Laboratory Tests 05/23 1300 Hematology WBC (4.5 - 11.0 x10 3/uL) 9.7 RBC (4.00 - 5.60 x10 6/uL) 3.31 L Hgb (12.5 - 16.9 g/dL) 9.5 L Hct (37.5 - 50.7 %) 29.6 L MCV (81.0 - 99.0 fL) 89.4 MCH (27.0 - 33.0 pg) 28.7 MCHC (33.0 - 37.0 g/dL) 32.1 L RDW (11.5 - 14.5 %) 14.4 Plt Count (150 - 400 x10 3/uL) 395 MPV (7.0 - 9.0 fL) 8.3 Neut % (Auto) (56.0 - 77.0 %) 78.9 H Lymph % (Auto) (14.0 - 32.0 %) 7.0 L Dolores % (Auto) (4.8 - 9.0 %) 7.2 Eos % (Auto) (0.3 - 3.7 %) 5.9 H Baso % (Auto) (0.0 - 2.0 %) 0.4 Neut # (Auto) (2.0 - 7.6 x10 3/uL) 7.67 H Lymph # (Auto) (1.0 - 3.8 x10 3/uL) 0.68 L Dolores # (Auto) (0.1 - 0.8 x10 3/uL) 0.70 Eos # (Auto) (0.0 - 0.2 x10 3/uL) 0.57 H Baso # (Auto) (0.0 - 0.2 x10 3/uL) 0.04 Abs Immat Gran (auto) (0.00 - 0.03 x10 3/uL) 0. 06 H Add Manual Diff NO Immature Gran % (0.0 - 2.0 %) 0.6 Nucleated RBC % (0 - 0 %) 0.0 Nucleated RBCs # (Man) (0.0 - 0.1 x10 3/uL) 0.0 0 Results: labs reviewed, vital signs stable, curr ent med profile rev'd Diagnosis, Assessment Plan Free Text A P: 1. Right AKA stump cellulitis --R/O fluid collection, check CT extremity --Superficial cx: Pseudomonas (R-Merrem), and Co NS --ESR/CRP significant elevated 2. S/P mechanical fall with SDH 3. ESRD on HD 4. HTN 5. HLD On Cefepime, change to Zosyn Further recs based on clinical course Plan discussed with: patient, nurse Electronically Signed by Jonathan Sheikh NP on at 1352 RPT #:[id number] END OF REPORT 2020-05-23 13:46:00-00:00 [facility] ([facility]) Infectious Dis. Progress Note REPORT#:[id number] REPORT STATUS: Signed DATE:05/23/20 TIME: 1346 PATIENT: DARIEN GROSSMAN UNIT #: [id number] ROOM/BED: [place] [address] : 45 AGE: 74 SEX: M ATTEND: Rosa Curtis MD ADM AUTHOR: Jonathan Sheikh NP * ALL edits or amendments must be made on the C-Note/computer document * Subjective Chief Complaint: F/U Rght AKA cellulitis HPI: Patient is a 74-year-old male with past medical history of end-stage renal disease on HD, hypertension, hyperlipide liseth who underwent right qmfno-bdv-vbwe amputation in March 2020. He was admitted to [facility] after sustaining a fall resulting in a subdural hematoma. He was transferred to rehab on . He was noted to have small amount of gamal inage to his right AKA stump and hence ID was consulted to assist with antibi otics and plan of care. Patient reports: Yes: bowel movement, feeling better. No: complaints, abdominal pain, back pain, burning with urination, cough, diarrhea, fever, headache, nausea, pain, pain controlled, shortness of breath, vomiting, wheez ing. Nursing reports: No: complaints. Review of Systems All systems rev neg: except as marked Objective General VS/I O: Last Documented: Result Date Time Pulse Ox 93 05/23 0709 B/P 145/72 05/23 0709 B/P Mean 96.4 05/23 0709 Temp 98.6 05/23 0709 Pulse 65 05/23 0709 Resp 18 05/23 0709 O2 Delivery Room air 05/229 Vital Signs Date Temp Pulse Resp B/P B/P Mean Pulse Ox FiO2 05/22-05/23 97.6-98.6 62-74 16-20 127-145/67-72 87-96.4 93-95 24 hour I O ending at 0700: 05/23 0700 05/22 1900 Intake Total 360 Output Total 600 Balance -240 Intake, Oral 360 Output, Urine 600 PATIENT WEIGHT: Weight (lb): 171 Weight (oz): 12.16 Weight (kg): 77.909 Physical Exam General appearance: alert, awake, oriented, no a cute distress, pleasant, conversational, mental status normal Wound/incision: Location: Right AKA stump- no erthema or draiange, small a farshad of srgical dehiscence Head/Eyes: atraumatic, normal conjunctiva/sclera ENT: moist mucosal membranes Neck: no JVD Cardiovascular: normal heart sounds Respiratory: clear to auscultation, aerating wel l, symmetric expansion Abdomen: non-tender, normal bowel sounds Neuro/CUSTODIAN MANAGER: alert, oriented X 3 Skin: dry, no rash Results Findings/Data: Laboratory Tests 05/23 05/23 1300 1300 Chemistry Sodium (134 - 147 mEq/L) 133 L Potassium (3.4 - 5.0 mEq/L) 4.1 Chloride (100 - 108 mEq/L) 97 L Carbon Dioxide (21 - 33 mEq/l) 27 Anion Gap (0 - 20) 13 BUN (7 - 18 mg/dL) 54 H Creatinine (0.6 - 1.3 mg/dL) 4.5 H Glomerular Filtr Rate (70 - 80) 12.9 L Glucose (70 - 110 mg/dL) 200 H Calcium (8.0 - 10.5 mg/dL) 9.6 Phosphorus (2.5 - 4.9 MG/DL) 3.9 Albumin (3.4 - 5.0 g/dL) 3.20 L Prealbumin (16.0 - 40.0 mg/dL) 14.3 L Laboratory Tests 05/23 1300 Hematology WBC (4.5 - 11.0 x10 3/uL) 9.7 RBC (4.00 - 5.60 x10 6/uL) 3.31 L Hgb (12.5 - 16.9 g/dL) 9.5 L Hct (37.5 - 50.7 %) 29.6 L MCV (81.0 - 99.0 fL) 89.4 MCH (27.0 - 33.0 pg) 28.7 MCHC (33.0 - 37.0 g/dL) 32.1 L RDW (11.5 - 14.5 %) 14.4 Plt Count (150 - 400 x10 3/uL) 395 MPV (7.0 - 9.0 fL) 8.3 Neut % (Auto) (56.0 - 77.0 %) 78.9 H Lymph % (Auto) (14.0 - 32.0 %) 7.0 L Dolores % (Auto) (4.8 - 9.0 %) 7.2 Eos % (Auto) (0.3 - 3.7 %) 5.9 H Baso % (Auto) (0.0 - 2.0 %) 0.4 Neut # (Auto) (2.0 - 7.6 x10 3/uL) 7.67 H Lymph # (Auto) (1.0 - 3.8 x10 3/uL) 0.68 L Dolores # (Auto) (0.1 - 0.8 x10 3/uL) 0.70 Eos # (Auto) (0.0 - 0.2 x10 3/uL) 0.57 H Baso # (Auto) (0.0 - 0.2 x10 3/uL) 0.04 Abs Immat Gran (auto) (0.00 - 0.03 x10 3/uL) 0. 06 H Add Manual Diff NO Immature Gran % (0.0 - 2.0 %) 0.6 Nucleated RBC % (0 - 0 %) 0.0 Nucleated RBCs # (Man) (0.0 - 0.1 x10 3/uL) 0.0 0 Results: labs reviewed, vital signs stable, curr ent med profile rev'd Diagnosis, Assessment Plan Free Text A P: 1. Right AKA stump cellulitis --R/O fluid collection, check CT extremity --Superficial cx: Pseudomonas (R-Merrem), and Co NS --ESR/CRP significant elevated 2. S/P mechanical fall with SDH 3. ESRD on HD 4. HTN 5. HLD On Cefepime, change to Zosyn Further recs based on clinical course Plan discussed with: patient, nurse Electronically Signed by Jonathan Sheikh NP on at 1352 at 7341 RPT #:[id number] END OF REPORT 2020-05-23 10:23:00-00:00 [facility] ([facility]) Pain Management Progress Note REPORT#:[id number] REPORT STATUS: Signed DATE:05/23/20 TIME: 1023 PATIENT: DARIEN GROSSMAN UNIT #: [id number] ROOM/BED: [facility] : 45 AGE: 74 SEX: M ATTEND: Rosa Curtis MD ADM AUTHOR: Sohail Wells * ALL edits or amendments must be made on the C-Note/computer document * Subjective Chief complaint: Patient seen and examined. Chart and VIJAYA reviewlawrence d. Patient is doing okay, no new complaints. At thi s time he does not want a lateral cutaneous nerve block Patient being seen for Left thigh pain, lateral femoral cutaneous neuralgia, Right AKA pain, Peripheral n europathy, phantom limb pain right lower extremity, Patient states symptoms are manageable with use of current medications. No fever/chills, chest pain, dyspnea, no emesis, pruritus, or hallucinations. 14-point ROS undertaken unremarkable except as n oted. Objective General VS/I O: Vital Signs Date Temp Pulse Resp B/P B/P Mean Pulse Ox FiO2 05/22-05/23 36.4-37.0 62-74 16-20 127-145/67-72 87-96.4 93-95 Last Documented: Result Date Time Pulse Ox 93 05/23 0709 B/P 145/72 05/23 0709 B/P Mean 96.4 05/23 0709 Temp 37.0 05/23 0709 Pulse 65 05/23 0709 Resp 18 05/23 0709 O2 Delivery Room air 05/22 2249 24 hour I O ending at 0700: 05/23 0700 05/22 1900 Intake Total 360 Output Total 600 Balance -240 Intake, Oral 360 Output, Urine 600 PATIENT WEIGHT: Weight (lb): 171 Weight (oz): 12.16 Weight (kg): 77.909 Medications: Active Meds + DC'd Last 24 Hrs Piperacillin Sod/Tazobactam Sod 3.375 GM Q12H IV Sodium Chloride 100 ML Collagenase 1 APPLIC DAILY TOPICAL Cefepime HCl 1 GM Q12H IV (DC) Sodium Chloride 10 ML Miscellaneous Information 1 EACH ASDIR IV (DC) Lidocaine 1 PATCH DAILY TOPICAL Amitriptyline HCl 10 MG BEDTIME PO Triamcinolone Acetonide 40 MG PROCEDURE IM (CKD) Aspirin 81 MG DAILY PO Clopidogrel Bisulfate 75 MG DAILY PO Furosemide 40 MG DAILY PO Polyethylene Glycol 17 GM DAILY PO Senna 1 TAB DAILY PO (CKD) Venlafaxine HCl 75 MG DAILY PO Acetaminophen 650 MG Q6H PRN PRN PO Hydralazine HCl 10 MG Q6H PRN PRN PO Ondansetron HCl 4 MG TID PRN PRN SL Heparin Sodium 5,000 UNIT Q8H SUBQ Buspirone HCl 10 MG BEDTIME PO Epoetin Donny-epbx 4,000 UNIT TuThSa@2100 SUBQ Gabapentin 300 MG BEDTIME PO Metoprolol Tartrate 25 MG BID PO Trazodone HCl 150 MG BEDTIME PO Hydrocodone Bitart/Acetaminophen 1 TAB Q4H PRN P RN PO Zolpidem Tartrate 5 MG BEDTIME PRN PRN PO Physical Exam General appearance: alert, awake, oriented, no a cute distress Head/eyes: atraumatic, normocephalic, normal con junctiva/sclera ENT: normal pharynx, moist mucosal membranes Neck: full range of motion, non-tender, supple/n o meningismus Cardiovascular: regular rate rhythm Respiratory: clear to auscultation, no distress Abdomen quadrants LLQ normal bowel sounds, LUQ normal roberto l sounds, RLQ normal bowel sounds, RUQ normal bowel sounds Extremities: moves all, no edema, pedal pulses Neuro/CUSTODIAN MANAGER: no motor deficits, no sensory deficit s, CNII-XII grossly intact Skin: dry, intact, no rash Results Findings/data: Laboratory Tests: 05/23 05/23 1300 1300 Chemistry Sodium (134 - 147 mEq/L) 133 L Potassium (3.4 - 5.0 mEq/L) 4.1 Chloride (100 - 108 mEq/L) 97 L Carbon Dioxide (21 - 33 mEq/l) 27 Anion Gap (0 - 20) 13 BUN (7 - 18 mg/dL) 54 H Creatinine (0.6 - 1.3 mg/dL) 4.5 H Glomerular Filtr Rate (70 - 80) 12.9 L Glucose (70 - 110 mg/dL) 200 H Calcium (8.0 - 10.5 mg/dL) 9.6 Phosphorus (2.5 - 4.9 MG/DL) 3.9 Albumin (3.4 - 5.0 g/dL) 3.20 L Prealbumin (16.0 - 40.0 mg/dL) 14.3 L Hematology WBC (4.5 - 11.0 x10 3/uL) 9.7 RBC (4.00 - 5.60 x10 6/uL) 3.31 L Hgb (12.5 - 16.9 g/dL) 9.5 L Hct (37.5 - 50.7 %) 29.6 L MCV (81.0 - 99.0 fL) 89.4 MCH (27.0 - 33.0 pg) 28.7 MCHC (33.0 - 37.0 g/dL) 32.1 L RDW (11.5 - 14.5 %) 14.4 Plt Count (150 - 400 x10 3/uL) 395 MPV (7.0 - 9.0 fL) 8.3 Neut % (Auto) (56.0 - 77.0 %) 78.9 H Lymph % (Auto) (14.0 - 32.0 %) 7.0 L Dolores % (Auto) (4.8 - 9.0 %) 7.2 Eos % (Auto) (0.3 - 3.7 %) 5.9 H Baso % (Auto) (0.0 - 2.0 %) 0.4 Neut # (Auto) (2.0 - 7.6 x10 3/uL) 7.67 H Lymph # (Auto) (1.0 - 3.8 x10 3/uL) 0.68 L Dolores # (Auto) (0.1 - 0.8 x10 3/uL) 0.70 Eos # (Auto) (0.0 - 0.2 x10 3/uL) 0.57 H Baso # (Auto) (0.0 - 0.2 x10 3/uL) 0.04 Abs Immat Gran (auto) (0.00 - 0.03 x10 3/uL) 0. 06 H Add Manual Diff NO Immature Gran % (0.0 - 2.0 %) 0.6 Nucleated RBC % (0 - 0 %) 0.0 Nucleated RBCs # (Man) (0.0 - 0.1 x10 3/uL) 0.0 0 Diagnosis, Assessment Plan Free text A P: A/P: Patient is a 74 year old male presenting with: Past medical history: Subdural hematoma, CAD, en d-stage renal disease on HD, hyperlipidemia, septic arthr itis of prosthesis of previous right TKA, depression Past surgical history: Right TKR, right AKA, cor onary stents Social history: Negative for alcohol, tobacco, i llicit drug use Family history: Not relevant Allergies: Penicillin, iodine Left thigh pain, lateral femoral cutaneous neura lgia -We will perform a left lateral femoral cutaneou s nerve block to see if this helps with the pain -Lidoderm patch to left thigh daily -Otis 10/325 mg oral every 4 hours as needed fo r pain -manageable Right AKA discomfort -Pain medications as outlined above Peripheral neuropathy, phantom limb pain right l ower extremity -Gabapentin 300 mg oral at bedtime -amitriptyline 10 mg oral at bedtime -stable Antalgic/impaired gait -PT/OT -Gait training, improve endurance and strength -Transfer training -PMR following End-stage renal disease on hemodialysis -Nephrology following Subdural hematoma -Monitor mental status with opioids and other se dative medications Depression -monitoring All pertinent diagnostics/labs from the last 24 hours and during the course of the admission were reviewed. Plan discussed with the patient and the nurse. A ll questions were answered. Patient will be monitored for deleteriou s side effects associated with opioids and sedative medications. Me dications will be adjusted further clinical course. Risks versus benefits of opioid medications were reviewed to include, but not limited to respiratory depression, accid ental overdose, altered mental status, sudden , constipation which could result in bowel obstruction, seizures, withdrawal, dependency/addiction, risk for falls . Goals: Daily pain control. Case discussed with Dr Lofton whom agrees. 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: Total Prescriptions 28 Total Private Pay 0 Total Prescribers 4 Total Pharmacies 1 05/06/2020 1 05/06/2020 HYDROCODONE-ACETAMIN 10- 325 MG 30.0 7 [facility] SPA [id number] [facility] ([id number]) 0 42.86 MME Comm Ins [place] 04/20/2020 1 12/24/2019 ZOLPIDEM TARTRATE 10 MG TABLET 30.0 30 PE LAT [id number] [facility] ([id number]) 4 Comm Ins [place] 03/21/2020 1 12/24/2019 ZOLPIDEM TARTRATE 10 MG TABLET 30.0 30 PE LAT [id number] [facility] ([id number]) 3 Comm Ins [place] 02/20/2020 1 12/24/2019 ZOLPIDEM TARTRATE 10 MG TABLET 30.0 30 PE LAT [id number] [facility] ([id number]) 2 [place] Ins [place] 01/21/2020 1 12/24/2019 ZOLPIDEM TARTRATE 10 MG TABLET 30.0 30 PE LAT [id number] [facility] ([id number]) 1 [place] 12/24/2019 1 12/24/2019 ZOLPIDEM TARTRATE 10 MG TABLET 30.0 30 PE LAT [id number] [facility] ([id number]) 0 [place] 11/25/2019 1 07/07/2019 ZOLPIDEM TARTRATE 10 MG TABLET 30.0 30 PE LAT [id number] [facility] ([id number]) 5 Comm Ins [place] [id number] (1999) [address] [place] [address] at 2017 RPT #:[id number] END OF REPORT 2020-05-23 10:23:00-00:00 [facility] REPORT#:[id number] REPORT STATUS: Signed DATE:05/23/20 TIME: 1023 PATIENT: DARIEN GROSSMAN UNIT #: [id number] ROOM/BED: [place] [address] : 45 AGE: 74 SEX: M ATTEND: Rosa Curtis MD ADM AUTHOR: Sohail Wells * ALL edits or amendments must be made on the el [employer]/computer document * Subjective Chief complaint: Patient seen and examined. Chart and VIJAYA reyes Patient is doing okay, no new complaints. At thi s time he does not want a lateral cutaneous nerve block Patient being seen for Left thigh pain, lateral femoral cutaneous neuralgia, Right AKA pain, Peripheral n europathy, phantom limb pain right lower extremity, Patient states symptoms are manageable with use of current medications. No fever/chills, chest pain, dyspnea, no emesis, pruritus, or hallucinations. 14-point ROS undertaken unremarkable except as n oted. Objective General VS/I O: Vital Signs Date Temp Pulse Resp B/P B/P Mean Pulse Ox FiO2 05/22-05/23 36.4-37.0 62-74 16-20 127-145/67-72 87-96.4 93-95 Last Documented: Result Date Time Pulse Ox 93 05/23 0709 B/P 145/72 05/23 0709 B/P Mean 96.4 05/23 07 Temp 37.0 05/23 07 Pulse 65 05/23 0709 Resp 18 05/23 07 O2 Delivery Room air 05/22 2249 24 hour I O ending at 0700: 05/23 0700 05/22 1900 Intake Total 360 Output Total 600 Balance -240 Intake, Oral 360 Output, Urine 600 PATIENT WEIGHT: Weight (lb): 171 Weight (oz): 12.16 Weight (kg): 77.909 Medications: Active Meds + DC'd Last 24 Hrs Piperacillin Sod/Tazobactam Sod 3.375 GM Q12H IV Sodium Chloride 100 ML Collagenase 1 APPLIC DAILY TOPICAL Cefepime HCl 1 GM Q12H IV (DC) Sodium Chloride 10 ML Miscellaneous Information 1 EACH ASDIR IV (DC) Lidocaine 1 PATCH DAILY TOPICAL Amitriptyline HCl 10 MG BEDTIME PO Triamcinolone Acetonide 40 MG PROCEDURE IM (CKD) Aspirin 81 MG DAILY PO Clopidogrel Bisulfate 75 MG DAILY PO Furosemide 40 MG DAILY PO Polyethylene Glycol 17 GM DAILY PO Senna 1 TAB DAILY PO (CKD) Venlafaxine HCl 75 MG DAILY PO Acetaminophen 650 MG Q6H PRN PRN PO Hydralazine HCl 10 MG Q6H PRN PRN PO Ondansetron HCl 4 MG TID PRN PRN SL Heparin Sodium 5,000 UNIT Q8H SUBQ Buspirone HCl 10 MG BEDTIME PO Epoetin Donny-epbx 4,000 UNIT TuThSa@2100 SUBQ Gabapentin 300 MG BEDTIME PO Metoprolol Tartrate 25 MG BID PO Trazodone HCl 150 MG BEDTIME PO Hydrocodone Bitart/Acetaminophen 1 TAB Q4H PRN P RN PO Zolpidem Tartrate 5 MG BEDTIME PRN PRN PO Physical Exam General appearance: alert, awake, oriented, no a cute distress Head/eyes: atraumatic, normocephalic, normal con junctiva/sclera ENT: normal pharynx, moist mucosal membranes Neck: full range of motion, non-tender, supple/n o meningismus Cardiovascular: regular rate rhythm Respiratory: clear to auscultation, no distress Abdomen quadrants LLQ normal bowel sounds, LUQ normal roberto l sounds, RLQ normal bowel sounds, RUQ normal bowel sounds Extremities: moves all, no edema, pedal pulses Neuro/CUSTODIAN MANAGER: no motor deficits, no sensory deficit s, CNII-XII grossly intact Skin: dry, intact, no rash Results Findings/data: Laboratory Tests: 05/23 05/23 1300 1300 Chemistry Sodium (134 - 147 mEq/L) 133 L Potassium (3.4 - 5.0 mEq/L) 4.1 Chloride (100 - 108 mEq/L) 97 L Carbon Dioxide (21 - 33 mEq/l) 27 Anion Gap (0 - 20) 13 BUN (7 - 18 mg/dL) 54 H Creatinine (0.6 - 1.3 mg/dL) 4.5 H Glomerular Filtr Rate (70 - 80) 12.9 L Glucose (70 - 110 mg/dL) 200 H Calcium (8.0 - 10.5 mg/dL) 9.6 Phosphorus (2.5 - 4.9 MG/DL) 3.9 Albumin (3.4 - 5.0 g/dL) 3.20 L Prealbumin (16.0 - 40.0 mg/dL) 14.3 L Hematology WBC (4.5 - 11.0 x10 3/uL) 9.7 RBC (4.00 - 5.60 x10 6/uL) 3.31 L Hgb (12.5 - 16.9 g/dL) 9.5 L Hct (37.5 - 50.7 %) 29.6 L MCV (81.0 - 99.0 fL) 89.4 MCH (27.0 - 33.0 pg) 28.7 MCHC (33.0 - 37.0 g/dL) 32.1 L RDW (11.5 - 14.5 %) 14.4 Plt Count (150 - 400 x10 3/uL) 395 MPV (7.0 - 9.0 fL) 8.3 Neut % (Auto) (56.0 - 77.0 %) 78.9 H Lymph % (Auto) (14.0 - 32.0 %) 7.0 L Dolores % (Auto) (4.8 - 9.0 %) 7.2 Eos % (Auto) (0.3 - 3.7 %) 5.9 H Baso % (Auto) (0.0 - 2.0 %) 0.4 Neut # (Auto) (2.0 - 7.6 x10 3/uL) 7.67 H Lymph # (Auto) (1.0 - 3.8 x10 3/uL) 0.68 L Dolores # (Auto) (0.1 - 0.8 x10 3/uL) 0.70 Eos # (Auto) (0.0 - 0.2 x10 3/uL) 0.57 H Baso # (Auto) (0.0 - 0.2 x10 3/uL) 0.04 Abs Immat Gran (auto) (0.00 - 0.03 x10 3/uL) 0. 06 H Add Manual Diff NO Immature Gran % (0.0 - 2.0 %) 0.6 Nucleated RBC % (0 - 0 %) 0.0 Nucleated RBCs # (Man) (0.0 - 0.1 x10 3/uL) 0.0 0 Diagnosis, Assessment Plan Free text A P: A/P: Patient is a 74 year old male presenting with: Past medical history: Subdural hematoma, CAD, en d-stage renal disease on HD, hyperlipidemia, septic arthr itis of prosthesis of previous right TKA, depression Past surgical history: Right TKR, right AKA, cor onary stents Social history: Negative for alcohol, tobacco, i llicit drug use Family history: Not relevant Allergies: Penicillin, iodine Left thigh pain, lateral femoral cutaneous neura lgia -We will perform a left lateral femoral cutaneou s nerve block to see if this helps with the pain -Lidoderm patch to left thigh daily -Otis 10/325 mg oral every 4 hours as needed fo r pain -manageable Right AKA discomfort -Pain medications as outlined above Peripheral neuropathy, phantom limb pain right l ower extremity -Gabapentin 300 mg oral at bedtime -amitriptyline 10 mg oral at bedtime -stable Antalgic/impaired gait -PT/OT -Gait training, improve endurance and strength -Transfer training -PMR following End-stage renal disease on hemodialysis -Nephrology following Subdural hematoma -Monitor mental status with opioids and other se dative medications Depression -monitoring All pertinent diagnostics/labs from the last 24 hours and during the course of the admission were reviewed. Plan discussed with the patient and the nurse. A ll questions were answered. Patient will be monitored for deleteriou s side effects associated with opioids and sedative medications. Me dications will be adjusted further clinical course. Risks versus benefits of opioid medications were reviewed to include, but not limited to respiratory depression, accid ental overdose, altered mental status, sudden , constipation which could result in bowel obstruction, seizures, withdrawal, dependency/addiction, risk for falls . Goals: Daily pain control. Case discussed with Dr Lofton whom agrees. 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: Total Prescriptions 28 Total Private Pay 0 Total Prescribers 4 Total Pharmacies 1 05/06/2020 1 05/06/2020 HYDROCODONE-ACETAMIN 10- 325 MG 30.0 7 [facility] SPA [id number] [facility] ([id number]) 0 42.86 MME Comm Ins [place] 04/20/2020 1 12/24/2019 ZOLPIDEM TARTRATE 10 MG TABLET 30.0 30 PE LAT [id number] [facility] ([id number]) 4 Comm Ins [place] 03/21/2020 1 12/24/2019 ZOLPIDEM TARTRATE 10 MG TABLET 30.0 30 PE LAT [id number] [facility] ([id number]) 3 Comm Ins [place] 02/20/2020 1 12/24/2019 ZOLPIDEM TARTRATE 10 MG TABLET 30.0 30 PE LAT [id number] [facility] ([id number]) 2 Comm Ins [place] 01/21/2020 1 12/24/2019 ZOLPIDEM TARTRATE 10 MG TABLET 30.0 30 PE LAT [id number] [facility] (1602) 1 [place] Ins [place] 12/24/2019 1 12/24/2019 ZOLPIDEM TARTRATE 10 MG TABLET 30.0 30 PE LAT [id number] [facility] ([id number]) 0 [place] Ins [place] 11/25/2019 1 07/07/2019 ZOLPIDEM TARTRATE 10 MG TABLET 30.0 30 PE LAT [id number] [facility] ([id number]) 5 [place] Ins [place] [id number] (0919[facility] [address] [place] [address] at 2017 Electronically Signed by Herman Lofton MD on 0 05/24/20 at 2338 RPT #:[id number] END OF REPORT 2020-05-23 09:24:00-00:00 [facility] ([facility]) Wound Care Progress Note REPORT#:[id number] REPORT STATUS: Signed DATE:05/23/20 TIME: 923 PATIENT: DARIEN GROSSMAN UNIT #: [id number] ROOM/BED: [place] [address] : 45 AGE: 74 SEX: M ATTEND: Rosa Curtis MD ADM AUTHOR: Shaila Gilbert * ALL edits or amendments must be made on the C-Note/computer document * Objective General Medications: Active Meds + DC'd Last 24 Hrs Collagenase 1 APPLIC DAILY TOPICAL Cefepime HCl 1 GM Q12H IV Sodium Chloride 10 ML Miscellaneous Information 1 EACH ASDIR IV (CKD) Lidocaine 1 PATCH DAILY TOPICAL Amitriptyline HCl 10 MG BEDTIME PO Triamcinolone Acetonide 40 MG PROCEDURE IM (CKD) Aspirin 81 MG DAILY PO Clopidogrel Bisulfate 75 MG DAILY PO Furosemide 40 MG DAILY PO Polyethylene Glycol 17 GM DAILY PO Senna 1 TAB DAILY PO (CKD) Venlafaxine HCl 75 MG DAILY PO Acetaminophen 650 MG Q6H PRN PRN PO Hydralazine HCl 10 MG Q6H PRN PRN PO Ondansetron HCl 4 MG TID PRN PRN SL Heparin Sodium 5,000 UNIT Q8H SUBQ Buspirone HCl 10 MG BEDTIME PO Epoetin Donny-epbx 4,000 UNIT TuThSa@2100 SUBQ Gabapentin 300 MG BEDTIME PO Metoprolol Tartrate 25 MG BID PO Trazodone HCl 150 MG BEDTIME PO Hydrocodone Bitart/Acetaminophen 1 TAB Q4H PRN P RN PO Zolpidem Tartrate 5 MG BEDTIME PRN PRN PO Nutrition assessment: The data set between the solid lines has been im ported from the dietitian's assessment. Any exceptions have been noted under Provider comments. BMI Calculated: 25.4 Nutrition related diagnosis: Nutrition diagnosis details: Nutrition problem: Inadequate oral intake Nutrition etiology: Decreased/poor appetite, Dis likes hospital food Nutrition signs and symptoms: Consuming 50-75% f or 4 days Nutrition prescription: 1. C ontinue renal diet 2. Add Nepro 1x/day 3. Encourage food ordering and monitor fo od intake 3. [place] food preferences within diet and encourage oral intake >75% Dietitian name: Haley Shannon, Development Editor Assessment completed: 05/20/20 Provider comments on imported dietitian assessme nt: Physical Exam General appearance: awake Skin: R AKA wound dehiscence on both ends of the incision. Medially, 1 x 1 x 0.2 macerated, with scant slough. Lateral aspect of the incision, 0.5 x 3 cm with slough, with periwound eryth jennifer more on the medial aspect of the incision. Scant serous drainage. No odor. Results Findings/Data: Current Medications Sig/Tatum Start time Last Medication Dose Route Stop Time Status Admin Collagenase 1 APPLIC DAILY 05/22 899 AC 05/23 TOPICAL 06/21 0859 0801 Cefepime HCl 1 GM Q12H 05/21 2100 AC 05/23 Sodium Chloride 10 ML IV 06/04 2058 0803 Miscellaneous 1 EACH ASDIR 05/21 1145 CKD Information IV 06/20 1144 Lidocaine 1 PATCH DAILY 05/21 899 AC 05/23 TOPICAL 06/20 0859 0805 Amitriptyline HCl 10 MG BEDTIME 05/20 2100 AC 0 05/22 PO 06/19 Triamcinolone 40 MG PROCEDURE 05/20 1944 CKD Acetonide IM 06/20 1943 Aspirin 81 MG DAILY 05/20 899 AC 05/23 PO 06/19 1300 0803 Clopidogrel Bisulfate 75 MG DAILY 05/20 899 AC 05/23 PO 06/19 1300 0803 Furosemide 40 MG DAILY 05/20 899 AC 05/23 PO 06/19 1300 0804 Polyethylene Glycol 17 GM DAILY 05/20 899 AC 0 05/21 PO 06/19 1300 1016 Senna 1 TAB DAILY 05/20 899 CKD 05/21 PO 06/19 1300 1015 Venlafaxine HCl 75 MG DAILY 05/20 899 AC 05/23 PO 06/19 1300 0801 Acetaminophen 650 MG Q6H PRN PRN 05/20 0845 AC PO 06/19 0844 Hydralazine HCl 10 MG Q6H PRN PRN 05/20 0845 AC PO 06/19 0844 Ondansetron HCl 4 MG TID PRN PRN 05/20 0845 AC SL 06/19 0844 Heparin Sodium 5,000 UNIT Q8H 05/19 2200 AC SUBQ 06/19 1300 0558 Buspirone HCl 10 MG BEDTIME 05/19 2100 AC 05/22 PO 06/19 1300 2017 Epoetin Donny-epbx 4,000 UNIT TuThSa@2100 05/19 2100 AC 05/21 SUBQ 06/19 1300 2143 Gabapentin 300 MG BEDTIME 05/19 2100 AC 05/22 PO 06/19 1300 2017 Metoprolol Tartrate 25 MG BID 05/19 2100 AC PO 06/19 1300 0803 Trazodone HCl 150 MG BEDTIME 05/19 2099 AC 05/12 1 PO 06/19 1300 2016 Hydrocodone Bitart/ 1 TAB Q4H PRN PRN 05/19 20 15 AC 05/20 Acetaminophen PO 07/20 1300 2244 Zolpidem Tartrate 5 MG BEDTIME PRN PRN 05/19 20 00 AC 05/22 PO 06/19 1300 2246 Diagnosis, Assessment Plan Free Text A P: Right AKA wound dehiscence - Culture done, resul ts pending. Santyl with xeroform to dehisced sites cover with fo am dressing daily. Check prealbumin in am. [ x] Optimize Nutrition and Glycemic Control [ x] Pressure relieving inte rventions (Low Air Mattress, Prevalon boot, Turn q2h ) [ x] Nursing to implement impaired skin integrit y care plan as per skin care protocol Coordinattion of care D/W [ ] Other MD's [ x ] P atient [ ] Family [ ] Nursing [ ] Case Management at 2235 RPT #:[id number] END OF REPORT 2020-05-23 01:58:00-00:00 [facility] ([facility]) Clinical Note REPORT#:[id number] REPORT STATUS: Signed DATE:05/23/20 TIME: 0158 PATIENT: DARIEN GROSSMAN UNIT #: [id number] ROOM/BED: [place] [address] : 45 AGE: 74 SEX: M ATTEND: Rosa Curtis MD ADM AUTHOR: Danny Keith MD * ALL edits or amendments must be made on the C-Note/computer document * Clinical Note Note: 74-year-old male 1. Fall 2. Subdural hematoma 3. TBI (traumatic brain injury) 4. History of right above knee amputation (Onse t: 04/03/20) 5. ESRD on dialysis 6. History of coronary artery disease 7. History of coronary angioplasty with inserti on of stent 8. HLD (hyperlipidemia) 9. Anemia of chronic disease 10. Frequent falls 11. Hypoalbuminemia 12. Leukocytosis 13. Limb pain 14. Impaired functional mobility, balance, gait , and endurance 05/22: Leukocytosis 12.5, anemia 9.9 Plan We will continue with telemetry, BP control, gly cemic control, pain control, electrolyte control, DVT/GI prophylaxis, repeat labs. PT/OT/ST. Wound care. Electronically Signed by Danny Keith MD 05/24/20 at 1409 RPT #:[id number] END OF REPORT 2020-05-23 00:41:00-00:00 [facility]L [facility] ([facility]) Rehab Progress Note REPORT#:[id number] REPORT STATUS: Signed DATE:05/23/20 TIME: 004 PATIENT: DARIEN GROSSMAN UNIT #: [id number] ROOM/BED: [place] [address] : 45 AGE: 74 SEX: M ATTEND: Rosa Curtis MD ADM AUTHOR: Sekou Curtis MD * ALL edits or amendments must be made on the C-Note/computer document * Subjective Chief complaint: Rehab follow-up Generalized weakness Patient stated is more depressed-he thinks may b e possibly related to the substitution of his Pristiq medication-office asst bring his medication from home today To go for CT scan of residual limb of residual l imb without contrast Right AKA wounds look better Slept well Working with therapist Eating fair Denies PATEL/N/V/D 14 systems reviewed and neg. except that above. Patient reports: No: shortness of breath, vomiting, constipation. Nursing reports: No: new events overnight. Comments: Questionable allergy to IV dye and iodine. Bianca nt stated that he had severe reaction to the isotope for his cardiac stress t est 1 to 2 years ago. Objective General VS: Vital Signs: Date Time Temp Pulse Resp B/P B/P Pulse O2 O2 F low FiO2 Mean Ox Delivery Rate 05/22 2249 97.7 62 16 139/68 91.6 93 Room air 05/22 1916 97.9 64 16 133/67 89.2 94 Room air 05/22 1600 97.6 74 20 127/68 87 95 Room air 05/22 0745 98.1 81 16 146/67 93.6 96 Room air 05/22 0044 97.5 55 16 98/57 70.7 95 Room air PATIENT WEIGHT: Weight (lb): 171 Weight (oz): 12.16 Weight (kg): 77.909 Medications: Active Meds + DC'd Last 24 Hrs Collagenase 1 APPLIC DAILY TOPICAL Cefepime HCl 1 GM Q12H IV Sodium Chloride 10 ML Miscellaneous Information 1 EACH ASDIR IV (CKD) Lidocaine 1 PATCH DAILY TOPICAL Amitriptyline HCl 10 MG BEDTIME PO Triamcinolone Acetonide 40 MG PROCEDURE IM (CKD) Aspirin 81 MG DAILY PO Clopidogrel Bisulfate 75 MG DAILY PO Furosemide 40 MG DAILY PO Polyethylene Glycol 17 GM DAILY PO Senna 1 TAB DAILY PO (CKD) Venlafaxine HCl 75 MG DAILY PO Acetaminophen 650 MG Q6H PRN PRN PO Hydralazine HCl 10 MG Q6H PRN PRN PO Ondansetron HCl 4 MG TID PRN PRN SL Heparin Sodium 5,000 UNIT Q8H SUBQ Buspirone HCl 10 MG BEDTIME PO Epoetin Donny-epbx 4,000 UNIT TuThSa@2100 SUBQ Gabapentin 300 MG BEDTIME PO Metoprolol Tartrate 25 MG BID PO Trazodone HCl 150 MG BEDTIME PO Hydrocodone Bitart/Acetaminophen 1 TAB Q4H PRN P RN PO Zolpidem Tartrate 5 MG BEDTIME PRN PRN PO Nutrition assessment: BMI-25.4 Functional Progress Functional progress: - ST DAILY NOTE - - Cognition: PT PRESENTS WITH MILD COGNITIVE LING UISTIC DEFICITS IN THE AREAS OF ATTENTION, EXPRESSION, MEMORY, THOUGHT ORGANIZATION, AND INSIGHT. 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 - PT DEMOS OX4 AT INDEPENDENT LEVEL WITH NOTED USE OF EXTERNAL AIDS WHEN NEEDED. 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 PT REQUIRED REPEATED REMINDERS TO UTILIZE VapremaI ES, TRACK, AND ORGANIZE INFORMATION, THOUGH HE DOES REPORT ADD AND A LEARNING DISABILITY AT BASELINE. BENEFITTED FRO M VISUAL AID PROVIDED BY ST TO ASSIST IN THOUGHT ORGANIZATIO N. PT APPEARED SURPRISED BUT ENDORSED DIFFICULTY IN COMPLETING TASK. REQUIRED SIGNIFICANT EXTRA TIME, REQUIRIN G FULL LENGTH OF SESSION TO COMPLETE SINGLE TASK. MILDLY TANGENTIAL AND VERBOSE REQUIRING SOME REDIRECTION. ST daily note comment: PT UPRIGHT IN WC FOR SES WILLY DURATION; PLEASANT AND COOPERATIVE FOR ALL TASKS. ALARM ENGAGED AND AL L NEEDS MET AT SESSION CLOSE. - OT DAILY NOTE - - Range of motion and strength: 7# TIA 25X6 SE TS MODIFIED SIT UPS SEATED EDGE OF BUBBA FOCUSING O N CORE STRENGTHING AND SITTING TOLERANCE WHILE UNSUPPORTED Transfers: MIN A (CGA) W / TXFERS TODAY Activities of daily living: EATING- SET UP, Pt. ATE HIS BREAKFAST SEATED EOB GROOMING/HYGIENE- SET UP FW- SET UP UBD- SET UP LBD- SUPERVISION TOILETING- SBA Cognition: FOLLOWS TWO STEP COMMANDS, CUES FOR SAFETY AWARENESS OT daily note comment: Pt. REPORTED FEELING OK UPON ARRIVAL AND AGREEABLE TO SESSION. Pt. SEEN FOR 90 MIN OF SKILLED OT IN ORDER TO ADDRESS FUNCTIONAL TXFERS, ADL TASKS AND BUE STRENGTH/ENDURANCE. Pt. ABLE TO SIT UNSUPPORTED EOB AND EAT BREAKFAST TRAY W/ SET UP. Pt. HAD INCONTINENT B M IN GYM, RETURNED TO ROOM AND Pt. REQUIRED SBA FOR TOILETING AND CLEANING UP. Pt. ABLE TO COMPLETE DRESSING TASK S W/ MIN ASSIST-SET UP. Pt. TOLERATED ALL ACTIVITY FAIR W/ REST BREAKS NEEDED. Pt. RETURNED TO ROOM POST SESSION AND REQUESTED TO LAY BACK DOWN DUE TO FATIGUE. Pt. LEFT W/ NEEDS IN REACH AND BED ALARM ENGAGED. CONTINIE SKILLE D OT POC. - PT DAILY NOTE - - PT daily note comment: S: Pt HAS NO NEW COMPLAI NTS O: Pt SEEN FOR 90 MINS OF SKILLED PT ON EDUCATI ON , FUNCTIONAL TRAINING, THEREX, GAIT EDUCATION- DISCUSSED DME NEEDS, SAFETY PRECAUTI ON , FALL PREVENTION, ENERGY CONSERVATION. FT- SPVN SIT<>STAND USING RW X10, SPVN IN SQUAT PIVOT TX BED<>WC<>MAT. SPVN EOB SITTING LATERAL, SCOOTIN G ON MAT. WCCM- 200FT X2 WCCM USING LIVE UE MADE 4 180DEG TURNS, 4 90DEG TURNS FOR CARDIO ENDURANCE EXERCISE THEREX- IN TRANSITION TO SIT<>STAND STANDING THEREX PARTIAL SQUATS X10, HEEL RAISES X10 USING RW. SEATED THEREX ON MAT USING ANKLE WEIGHTS IN ALL AVAILABLE PLANES X15 GAIT- IN SPVN USING RW WC FOLLOW COMPLETED 30FT HOP-TO GAIT WITH 2 90DEG TURNS. Pt ADMIT FATIGUE HAD TO SIT REFUSED FURTHER AMBULATION ACTIVITIES. A: Pt LIMITED TO FATIGUE DT HD PER Pt. HD DO NE LATE AFTERNOON YESTERDAY PER Pt HAS NOT YET RECOVERED. P: CONTNIUE POC Physical Exam General appearance: alert, awake, oriented Psych: alert, normal affect, oriented x 3 HEENT: anicteric, mucosal membranes moist, pupil s reactive to light, sclera clear, NC/AT Neck: non-tender, supple, no JVD Cardiovascular: regular rate rhythm, S1/S2, no m urmur Respiratory: aerating well, clear bilaterally, c lear to auscultation Abdomen: bowel sounds presen t, non-distended, soft, non-tender, no mass palpable Skin: dry, normal temperature, L AKA incision w 2 open areas of dehiscence-no drainage, no odor. Musculoskeletal - general: Musculoskeletal - general: normal tone, no swel ling, MMT moves all against gravity. BUE 4/5, SHORT PIECE HANDLER GOOD, RHF 3+/5, LLE 4/5. L calf NT, No cords. TTP L lateral thigh above trochanter bursae. Neuro/CUSTODIAN MANAGER: alert, oriented X 3, CNII-XII intact, normal speech, reflexes equal bilat Results Findings/Data: Laboratory Tests: 05/22 05/22 0535 0535 Chemistry C-Reactive Protein (<10.0 mg/L) 192.0 H Prealbumin (16.0 - 40.0 mg/dL) 13.1 L Hematology WBC (4.5 - 11.0 x10 3/uL) 12.5 H RBC (4.00 - 5.60 x10 6/uL) 3.42 L Hgb (12.5 - 16.9 g/dL) 9.9 L Hct (37.5 - 50.7 %) 31.1 L MCV (81.0 - 99.0 fL) 90.9 MCH (27.0 - 33.0 pg) 28.9 MCHC (33.0 - 37.0 g/dL) 31.8 L RDW (11.5 - 14.5 %) 14.6 H Plt Count (150 - 400 x10 3/uL) 412 H MPV (7.0 - 9.0 fL) 8.6 Neut % (Auto) (56.0 - 77.0 %) 75.3 Lymph % (Auto) (14.0 - 32.0 %) 7.6 L Dolores % (Auto) (4.8 - 9.0 %) 9.8 H Eos % (Auto) (0.3 - 3.7 %) 6.3 H Baso % (Auto) (0.0 - 2.0 %) 0.4 Neut # (Auto) (2.0 - 7.6 x10 3/uL) 9.40 H Lymph # (Auto) (1.0 - 3.8 x10 3/uL) 0.95 L Dolores # (Auto) (0.1 - 0.8 x10 3/uL) 1.23 H Eos # (Auto) (0.0 - 0.2 x10 3/uL) 0.79 H Baso # (Auto) (0.0 - 0.2 x10 3/uL) 0.05 Abs Immat Gran (auto) (0.00 - 0.03 x10 3/uL) 0. 08 H Add Manual Diff NO Immature Gran % (0.0 - 2.0 %) 0.6 Nucleated RBC % (0 - 0 %) 0.0 Nucleated RBCs # (Man) (0.0 - 0.1 x10 3/uL) 0.0 0 ESR Westergren (0 - 15 mm/hr) 114 H Radiology data: Recent Impressions: RADIOLOGY - XR HIP W/PEL UNI 2+V LT 05/21 1734 Report Impression - Status: SIGNED Entered: 05/21/20201837 IMPRESSION: 1. There is no acute osseous fracture or disloca tion. The hip joint spaces are preserved. Impression By: Oly Kitchen D.O. Objective Comments Objective comments: Microbiology: 05/21 1745 WND OTHER: Gram Stain - COMP 05/21 0545 LEG: Wound Culture - RES GRAM NEGATIVE TRACEY 05/20 0530 NASAL: MRSA DNA Surveillance Screen - COMP Hematology: 05/22 05/21 05/20 0535 0550 0535 Hematology WBC (4.5 - 11.0 x10 3/uL) 12.5 H 12.3 H 12.9 H Chemistry: 05/21 05/20 0550 0535 Chemistry Creatinine (0.6 - 1.3 mg/dL) 3.4 H 4.2 H Recent Impressions: RADIOLOGY - XR HIP W/PEL UNI 2+V LT 05/21 1734 Report Impression - Status: SIGNED Entered: 05/21/20201837 IMPRESSION: 1. There is no acute osseous fracture or disloca tion. The hip joint spaces are preserved. Impression By: Oly Kitchen D.O. 05/23 0700 05/22 2300 05/22 1500 Intake Total 120 Output Total 200 Balance -80 Intake, Oral 120 Output, Urine 200 Diagnosis, Assessment Plan Problem List/A P: 1. Fall 2. Subdural hematoma 3. TBI (traumatic brain injury) 4. History of right above knee amputation 5. ESRD on dialysis 6. History of coronary artery disease 7. History of coronary angioplasty with inserti on of stent 8. HLD (hyperlipidemia) 9. Anemia of chronic disease 10. Frequent falls 11. Hypoalbuminemia 12. Leukocytosis 13. Limb pain 14. Impaired functional mobility, balance, gait , and endurance Free Text A P: Assessment: Mechanical fall TBI with SDH, no surgical intervention required Stable acute L parafalcine SDH extending into the L tentorium with min left to right midline shift 04/03-Recent right AKA, previous right TKA compli cated by infection Impaired mobility and gait Generalized weakness Frequent falls Phantom pain/residual limb pain ESRD on hemodialysis Hyperkalemia resolved History of CAD Hypertension HLD Anemia of chronic disease Right AKA wound dehiscence-does not appear to be infected Left lateral thigh pain Left thigh pain, lateral femoral cutaneous neura lgia Significant impairment in self-care and function al mobility Plan: -Comprehensive inpatient rehabilitation with physical, occupational and speech therapy 3 hours a day for 5 to 6 days per week-2 05/18 rehabilitation physician supervision-03/09 rehabilitat ion nursing care-Case management for safe discharge planning-Rehab MD to monitor comorbidities and f unctional progress. -Decubitus prevention-protective hydrating lotio n-turn every 2 hours-offload -Right AKA wound dehiscence- wound care consulted-Dr. Gilbert-for now Xeroform and Mepilex -Consult new life brace management/prosthetics -Strict fall and safety precaution -DVT prophylaxis-SCDs and subcutaneous heparin -GI prophylaxis-Protonix -Early mobilization-OOB to chair -Work on bed mobility, transfer training , ADLs, pre-gait and gait exercises as tolerable. 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 intake, check albumin 3.2 and prealbumin 13.1, 14.3, dietary consult, protein supplements . -Await consultants input, internal medicine, nep hrology, pain management, ID, wound care -Domenica for a total of 7 days-to be completed to zuniga 05/21-completed -Continue right AKA incisional dressing care-wou nds looking better -Consult prosthetic company for evaluation -Continue aspirin and Plavix-Lasix -History of depression/anxie ty continue BuSpar, Desyrel, Effexor-office asst bring in patient's home Pristiq -Monitor hemoglobin on Epogen -Hemodialysis as per nephrology-Saturday -Blood pressure currently stable on current medi cation -Renal diet -Left hip pain-x-ray of the left hip and pelvis showed no acute osseous fracture. The hip joint spaces are preserved-sat itor -Elevated WBC-possible infec amado right NASEEM-culture wound pending-no fever-repeat CBC 05/21-given patient's history of staph infect ion prior will consult ID. Patient seen by ID-patient placed on vancomycin now discontinued -Right AKA wound dehiscence- Culture done-rare gram-negative bacilli-Santyl with xeroform to dehisced sites cover with foam dress ing daily-As per wound care -Right AKA stump cellulitis-R/O fluid collection , check CT extremity without contrast-Superficial cx: Pseudomonas (R-Merrem), and CoNS-ESR 114/CRP 192 significant elevated-On Cefepime, change to Zosy n as per ID -Depression worse-patient's office manag er to bring in patient's home Prestiq- psychiatry consult -Labs reviewed-WBC down to 9 .7-hemoglobin stable 9.5, sodium 133, creatinine 4.5 -Continue current medication -GOALS: Supervision to modified independent -START BRAIN INJURY AND AMPUTATION IRF Patient Progress-GAIT- IN SPVN USING RW WC FOLLO W COMPLETED 30FT HOP-TO GAIT WITH 2 90DEG TURNS. Pt ADMIT FATIGUE HAD TO SIT REFUSED FURTHER AMBULATION ACTIVITIES. PM R Please see team note. Plan and goals discussed with the patient. I agree with the teams finding ELOS- [14 days] DC DME TT 35 min>50% with discussing with patient about depression, home Pristiq, CT scan of the residual limb, progress, open wounds to right AKA, ID consult, continue IV antibiotic, reviewed culture results , wound care, rehab plan of care, goals, expectations, needs, and me dical issues, examination. MAR and EMR reviewed. All Questions answered. Orders: Procedure Date/time Status TRANSPORT REQUEST 05/23 1249 Active PT GAIT TRNG 05/23 UNK Complete PT FUNCTIONAL TRN 15 MIN 05/23 UNK Complete PT EXERCISE 15 MIN 05/23 UNK Complete OT EXERCISE 15MIN 05/23 UNK Complete OT ADL 05/23 UNK Complete Plan discussed with: patient, nurse, interdisc c are team Rehab attestation: Face to face exam completed. Treatment plan disc ussed with patient. Meets continued stay criteria. Agree with interdiscipl inary treatment plan. Patient seen and examined by me personally. at 1525 RPT #:[id number] END OF REPORT 2020-05-22 22:56:00-00:00 [facility] REPORT#:[id number] REPORT STATUS: Signed DATE:05/22/20 TIME: 2255 PATIENT: DARIEN GROSSMAN UNIT #: [id number] ROOM/BED: [place] [address] : 45 AGE: 74 SEX: M ATTEND: Rosa Curtis MD ADM AUTHOR: Javier Meek NP * ALL edits or amendments must be made on the C-Note/computer document * Subjective Chief Complaint: Right AKA Possible depression Review of Systems Constitutional: Denies: chills, fever. ENT: Denies: earache, nasal congestion, sore throat. Respiratory: Denies: hemoptysis, parox no cturnal dyspnea, pleurisy, pleuritic pain, pneumonia , SOB, wheezing. Cardiovascular: Denies: chest pain, palpitations. GI: Denies: abdominal pain, nausea, vomiting. : Denies: flank pain, frequency, hematuria. Musculoskeletal: Denies: extremity pain, extr emity swelling, joint pain, lumbar pain, neck pain. Neuro: Denies: change in LOC, confusion, dizziness, foc al weakness, gait problem, headache, lightheaded, numbness, seizure, slurre d speech, spinning sensation, syncope, unable to speak, vision change. Psych: Denies: agitation, anxiety, auditory hallucinati on, change in mental status, confusion, delusional, depre ssion, homicidal ideation, hostile, insomnia, stress , suicidal ideation, visual hallucination. Objective General VS/I O: Laboratory Tests 05/22/20 0535: [Embedded Image Not Available] 05/21/20 0550: [Embedded Image Not Available] Laboratory Tests 05/22 05/22 05/21 05/20 0535 0535 0550 0535 Chemistry Sodium (134 - 147 mEq/L) 137 134 Potassium (3.4 - 5.0 mEq/L) 3.6 3.8 Chloride (100 - 108 mEq/L) 97 L 96 L Carbon Dioxide (21 - 33 mEq/l) 32 30 Anion Gap (0 - 20) 11 12 BUN (7 - 18 mg/dL) 31 H 44 H Creatinine (0.6 - 1.3 mg/dL) 3.4 H 4.2 H Glomerular Filtr Rate (70 - 80) 17.8 L 13.9 L Glucose (70 - 110 mg/dL) 84 88 Calcium (8.0 - 10.5 mg/dL) 9.1 9.2 Total Bilirubin (0.0 - 1.0 mg/dL) 0.60 AST (15 - 37 IUnit/L) 14 L ALT (30 - 65 IUnit/L) 9 L Total Alk Phosphatase (20 - 125 IUnit/L) 104 C-Reactive Protein (<10.0 mg/L) 192.0 H Total Protein (6.4 - 8.2 g/dL) 6.9 Albumin (3.4 - 5.0 g/dL) 3.20 L Prealbumin (16.0 - 40.0 mg/dL) 13.1 L Laboratory Tests 05/22 05/22 05/21 05/20 0535 0535 0550 0535 Hematology WBC (4.5 - 11.0 x10 3/uL) 12.5 H 12.3 H 12.9 H RBC (4.00 - 5.60 x10 6/uL) 3.42 L 3.09 L 3.11 L Hgb (12.5 - 16.9 g/dL) 9.9 L 8.9 L 9.0 L Hct (37.5 - 50.7 %) 31.1 L 28.3 L 28.2 L MCV (81.0 - 99.0 fL) 90.9 91.6 90.7 MCH (27.0 - 33.0 pg) 28.9 28.8 28.9 MCHC (33.0 - 37.0 g/dL) 31.8 L 31.4 L 31.9 L RDW (11.5 - 14.5 %) 14.6 H 14.4 14.5 Plt Count (150 - 400 x10 3/uL) 412 H 373 316 MPV (7.0 - 9.0 fL) 8.6 8.8 8.4 Neut % (Auto) (56.0 - 77.0 %) 75.3 74.4 75.0 Lymph % (Auto) (14.0 - 32.0 %) 7.6 L 9.4 L 7.0 L Dolores % (Auto) (4.8 - 9.0 %) 9.8 H 10.2 H 10.3 H Eos % (Auto) (0.3 - 3.7 %) 6.3 H 5.2 H 6.9 H Baso % (Auto) (0.0 - 2.0 %) 0.4 0.3 0.2 Neut # (Auto) (2.0 - 7.6 x10 3/uL) 9.40 H 9.13 H 9.64 H Lymph # (Auto) (1.0 - 3.8 x10 3/uL) 0.95 L 1.16 0.90 L Dolores # (Auto) (0.1 - 0.8 x10 3/uL) 1.23 H 1.25 H 1.32 H Eos # (Auto) (0.0 - 0.2 x10 3/uL) 0.79 H 0.64 H 0.89 H Baso # (Auto) (0.0 - 0.2 x10 3/uL) 0.05 0.04 0. 03 Abs Immat Gran (auto) (0.00 - 0.03 0.08 H 0.06 H 0.08 H x10 3/uL) Add Manual Diff NO NO NO Immature Gran % (0.0 - 2.0 %) 0.6 0.5 0.6 Nucleated RBC % (0 - 0 %) 0.0 0.0 0.0 Nucleated RBCs # (Man) (0.0 - 0.1 x10 3/uL) 0.0 0 0.00 0.00 ESR Westergren (0 - 15 mm/hr) 114 H Microbiology Date/Time Procedure - Status Source Growth 05/21 1744 Gram Stain - COMP WND OTHER 05/20 529 MRSA DNA Surveillance Screen - COMP NASAL Microbiology: 05/21 1744 WND OTHER: Gram Stain - COMP 05/21 544 LEG: Wound Culture - RES GRAM NEGATIVE TRACEY 05/20 529 NASAL: MRSA DNA Surveillance Screen - COMP Vital Signs: Date Time Temp Pulse Resp B/P B/P Pulse O2 O2 F low FiO2 Mean Ox Delivery Rate 05/22 2249 36.5 62 16 139/68 91.6 93 Room air 05/22 1916 36.6 64 16 133/67 89.2 94 Room air 05/22 1600 36.4 74 20 127/68 87 95 Room air 05/22 0745 36.7 81 16 146/67 93.6 96 Room air 05/22 0044 36.4 55 16 98/57 70.7 95 Room air 05/22 0700 05/21 2300 05/21 1500 Intake Total 620.00 300 Output Total 2800 Balance -2180.00 300 Intake, IV 500.00 Intake, Oral 120 300 Intake, Oral 0 Supplement Number 1 1 Bowel Movements Number Voids 1 Output, 2800 Hemodialysis Current Medications Sig/Tatum Start time Last Medication Dose Route Stop Time Status Admin Collagenase 1 APPLIC DAILY 05/22 899 AC 05/22 TOPICAL 06/21 0859 0904 Cefepime HCl 1 GM Q12H 05/21 2100 AC 05/22 Sodium Chloride 10 ML IV 06/04 Miscellaneous 1 EACH ASDIR 05/21 1145 CKD Information IV 06/20 114 Lidocaine 1 PATCH DAILY 05/21 899 AC 05/22 TOPICAL 06/20 0859 0908 Amitriptyline HCl 10 MG BEDTIME 05/20 2100 AC 0 05/22 PO 06/19 Triamcinolone 40 MG PROCEDURE 05/20 1944 CKD Acetonide IM 06/20 1943 Aspirin 81 MG DAILY 05/20 899 AC 05/22 PO 06/19 1300 0904 Clopidogrel Bisulfate 75 MG DAILY 05/20 899 AC 05/22 PO 06/19 1300 0904 Furosemide 40 MG DAILY 05/20 899 AC 05/22 PO 06/19 1300 0903 Polyethylene Glycol 17 GM DAILY 05/20 899 AC 0 05/21 PO 06/19 1300 1016 Senna 1 TAB DAILY 05/20 899 CKD 05/21 PO 06/19 1300 1015 Venlafaxine HCl 75 MG DAILY 05/20 899 AC 05/12 1 PO 06/19 1300 0902 Acetaminophen 650 MG Q6H PRN PRN 05/20 0845 AC PO 06/19 0844 Hydralazine HCl 10 MG Q6H PRN PRN 05/20 0845 AC PO 06/19 0844 Ondansetron HCl 4 MG TID PRN PRN 05/20 0845 AC SL 06/19 0844 Heparin Sodium 5,000 UNIT Q8H 05/19 2200 AC SUBQ 06/19 1300 2247 Buspirone HCl 10 MG BEDTIME 05/19 2100 AC 05/22 PO 06/19 1300 2017 Epoetin Donny-epbx 4,000 UNIT TuThSa@2100 05/19 2100 AC 05/21 SUBQ 06/19 1300 2143 Gabapentin 300 MG BEDTIME 05/19 2100 AC 05/22 PO 06/19 1300 2017 Metoprolol Tartrate 25 MG BID 05/19 2100 AC PO 06/19 1300 2017 Trazodone HCl 150 MG BEDTIME 05/19 2100 AC 05/12 1 PO 06/19 1300 2016 Hydrocodone Bitart/ 1 TAB Q4H PRN PRN 05/19 201 5 AC 05/20 Acetaminophen PO 07/20 1300 2244 Zolpidem Tartrate 5 MG BEDTIME PRN PRN 05/19 20 00 AC 05/22 PO 06/19 1300 2246 Recent Impressions-Last 72 Hrs RADIOLOGY - XR HIP W/PEL UNI 2+V LT 05/21 1735 Report Impression - Status: SIGNED Entered: 05/21/2020 1838 IMPRESSION: 1. There is no acute osseous fracture or disloca tion. The hip joint spaces are preserved. Impression By: [email or web address] - James Kitchen D.O. Vital Signs Date Temp Pulse Resp B/P B/P Mean Pulse Ox FiO2 05/22 36.4-36.7 55-81 16-20 98-146/57-68 70.7-9 3.6 93-96 Last Documented: Result Date Time Pulse Ox 93 05/22 2248 B/P 139/68 05/22 2248 B/P Mean 91.6 05/22 2248 O2 Delivery Room air 05/22 2248 Temp 36.5 05/22 2248 Pulse 62 05/22 2248 Resp 16 05/22 2248 24 hour I O ending at 0700: 05/22 0700 05/21 1900 Intake Total 620.00 300 Output Total 2800 Balance 620.00 -2500 Intake, IV 500.00 Intake, Oral 120 300 Intake, Oral 0 Supplement Number 1 1 Bowel Movements Number Voids 1 Output, 2800 Hemodialysis PATIENT WEIGHT: Weight (lb): 171 Weight (oz): 12.16 Weight (kg): 77.909 Physical Exam General appearance: alert, awake Neck: no JVD Cardiovascular: regular rate rhythm Respiratory: aerating well, clear to auscultatio n Abdomen: non-tender, normal bowel sounds, soft Extremities: Extremities: RT AKA Neuro/CUSTODIAN MANAGER: alert, oriented x 3 Skin: dry, normal temperature Psychiatry: depressed, normal judgement/insight Diagnosis, Assessment Plan Free Text DxA P Notes Free text DxA P notes: Assessment: 1.Mechanical fall 2.Traumatic brain injury with subdural hematoma 3. Right AKA pulmonary 2020 4. IMpaired mobility/Impaired gait 5. History of depression 6. Generalized weakness 7. Phantom pain 8. End-stage renal disease on hemodialysis 3 day s a week 9. Anemia 10. History of coronary artery disease, hyperten willy, and hyperlipidemia 05/21/20 Patient's doing well Sitting in a wheelchair Participating in therapy Family visiting at the bedside 05/22/20 Patient participating in therapy daily Reportedly patient is depressed He answered all my questions but seems to be sad Plan of care: -Continue with comprehensive inpatient rehabilit [facility] rehab team -Pain control -Fall precaution -DVT prophylaxis subcu heparin -GI prophylaxis patient currently on Protonix -Pain control as pain management -Seizure precaution patient on Keppra -Continues present medications -Monitor labs -Plan of care discussed with the patient, galina marcano nurse, and Dr. Cavazos. Electronically Signed by Javier Meek NP on 0 05/24/20 at 0422 RPT #:[id number] END OF REPORT 2020-05-22 22:56:00-00:00 [facility] Internal Medicine Prog. Note REPORT#:[id number] REPORT STATUS: Signed DATE:05/22/20 TIME: 2255 PATIENT: DARIEN GROSSMAN UNIT #: [id number] ROOM/BED: [place] [address] : 45 AGE: 74 SEX: M ATTEND: Rosa Curtis MD ADM AUTHOR: Javier Meek MONOGRAM MAKER * ALL edits or amendments must be made on the C-Note/computer document * Javier Meek 05/22/202255: Subjective Chief Complaint: Right AKA Possible depression Review of Systems Constitutional: Denies: chills, fever. ENT: Denies: earache, nasal congestion, sore throat. Respiratory: Denies: hemoptysis, parox no cturnal dyspnea, pleurisy, pleuritic pain, pneumonia , SOB, wheezing. Cardiovascular: Denies: chest pain, palpitations. GI: Denies: abdominal pain, nausea, vomiting. : Denies: flank pain, frequency, hematuria. Musculoskeletal: Denies: extremity pain, extr emity swelling, joint pain, lumbar pain, neck pain. Neuro: Denies: change in LOC, confusion, dizziness, foc al weakness, gait problem, headache, lightheaded, numbness, seizure, slurre d speech, spinning sensation, syncope, unable to speak, vision change. Psych: Denies: agitation, anxiety, auditory hallucinati on, change in mental status, confusion, delusional, depre ssion, homicidal ideation, hostile, insomnia, stress , suicidal ideation, visual hallucination. Objective General VS/I O: Laboratory Tests 05/22/20 0535: [Embedded Image Not Available] 05/21/20 0550: [Embedded Image Not Available] Laboratory Tests 05/22 05/22 05/21 05/20 0535 0535 0550 0535 Chemistry Sodium (134 - 147 mEq/L) 137 134 Potassium (3.4 - 5.0 mEq/L) 3.6 3.8 Chloride (100 - 108 mEq/L) 97 L 96 L Carbon Dioxide (21 - 33 mEq/l) 32 30 Anion Gap (0 - 20) 11 12 BUN (7 - 18 mg/dL) 31 H 44 H Creatinine (0.6 - 1.3 mg/dL) 3.4 H 4.2 H Glomerular Filtr Rate (70 - 80) 17.8 L 13.9 L Glucose (70 - 110 mg/dL) 84 88 Calcium (8.0 - 10.5 mg/dL) 9.1 9.2 Total Bilirubin (0.0 - 1.0 mg/dL) 0.60 AST (15 - 37 IUnit/L) 14 L ALT (30 - 65 IUnit/L) 9 L Total Alk Phosphatase (20 - 125 IUnit/L) 104 C-Reactive Protein (<10.0 mg/L) 192.0 H Total Protein (6.4 - 8.2 g/dL) 6.9 Albumin (3.4 - 5.0 g/dL) 3.20 L Prealbumin (16.0 - 40.0 mg/dL) 13.1 L Laboratory Tests 05/22 05/22 05/21 05/20 0535 0535 0550 0535 Hematology WBC (4.5 - 11.0 x10 3/uL) 12.5 H 12.3 H 12.9 H RBC (4.00 - 5.60 x10 6/uL) 3.42 L 3.09 L 3.11 L Hgb (12.5 - 16.9 g/dL) 9.9 L 8.9 L 9.0 L Hct (37.5 - 50.7 %) 31.1 L 28.3 L 28.2 L MCV (81.0 - 99.0 fL) 90.9 91.6 90.7 MCH (27.0 - 33.0 pg) 28.9 28.8 28.9 MCHC (33.0 - 37.0 g/dL) 31.8 L 31.4 L 31.9 L RDW (11.5 - 14.5 %) 14.6 H 14.4 14.5 Plt Count (150 - 400 x10 3/uL) 412 H 373 316 MPV (7.0 - 9.0 fL) 8.6 8.8 8.4 Neut % (Auto) (56.0 - 77.0 %) 75.3 74.4 75.0 Lymph % (Auto) (14.0 - 32.0 %) 7.6 L 9.4 L 7.0 L Dolores % (Auto) (4.8 - 9.0 %) 9.8 H 10.2 H 10.3 H Eos % (Auto) (0.3 - 3.7 %) 6.3 H 5.2 H 6.9 H Baso % (Auto) (0.0 - 2.0 %) 0.4 0.3 0.2 Neut # (Auto) (2.0 - 7.6 x10 3/uL) 9.40 H 9.13 H 9.64 H Lymph # (Auto) (1.0 - 3.8 x10 3/uL) 0.95 L 1.16 0.90 L Dolores # (Auto) (0.1 - 0.8 x10 3/uL) 1.23 H 1.25 H 1.32 H Eos # (Auto) (0.0 - 0.2 x10 3/uL) 0.79 H 0.64 H 0.89 H Baso # (Auto) (0.0 - 0.2 x10 3/uL) 0.05 0.04 0. 03 Abs Immat Gran (auto) (0.00 - 0.03 0.08 H 0.06 H 0.08 H x10 3/uL) Add Manual Diff NO NO NO Immature Gran % (0.0 - 2.0 %) 0.6 0.5 0.6 Nucleated RBC % (0 - 0 %) 0.0 0.0 0.0 Nucleated RBCs # (Man) (0.0 - 0.1 x10 3/uL) 0.0 0 0.00 0.00 ESR Westergren (0 - 15 mm/hr) 114 H Microbiology Date/Time Procedure - Status Source Growth 05/21 1744 Gram Stain - COMP WND OTHER 05/20 529 MRSA DNA Surveillance Screen - COMP NASAL Microbiology: 05/21 1744 WND OTHER: Gram Stain - COMP 05/21 544 LEG: Wound Culture - RES GRAM NEGATIVE TRACEY 05/20 529 NASAL: MRSA DNA Surveillance Screen - COMP Vital Signs: Date Time Temp Pulse Resp B/P B/P Pulse O2 O2 F low FiO2 Mean Ox Delivery Rate 05/22 2248 36.5 62 16 139/68 91.6 93 Room air 05/22 1916 36.6 64 16 133/67 89.2 94 Room air 05/22 1600 36.4 74 20 127/68 87 95 Room air 05/22 0745 36.7 81 16 146/67 93.6 96 Room air 05/22 0044 36.4 55 16 98/57 70.7 95 Room air 05/22 0700 05/21 2300 05/21 1500 Intake Total 620.00 300 Output Total 2800 Balance -2180.00 300 Intake, IV 500.00 Intake, Oral 120 300 Intake, Oral 0 Supplement Number 1 1 Bowel Movements Number Voids 1 Output, 2800 Hemodialysis Current Medications Sig/Tatum Start time Last Medication Dose Route Stop Time Status Admin Collagenase 1 APPLIC DAILY 05/22 899 AC 05/22 TOPICAL 06/21 0859 0904 Cefepime HCl 1 GM Q12H 05/21 2099 AC 05/22 Sodium Chloride 10 ML IV 06/04 Miscellaneous 1 EACH ASDIR 05/21 1145 CKD Information IV 06/20 114 Lidocaine 1 PATCH DAILY 05/21 899 AC 05/22 TOPICAL 06/20 0859 0908 Amitriptyline HCl 10 MG BEDTIME 05/20 2099 AC 05/22 PO 06/19 Triamcinolone 40 MG PROCEDURE 05/20 1944 CKD Acetonide IM 06/19 194 Aspirin 81 MG DAILY 05/20 899 AC 05/22 PO 06/19 1300 0904 Clopidogrel Bisulfate 75 MG DAILY 05/20 899 AC 05/22 PO 06/19 1300 0904 Furosemide 40 MG DAILY 05/20 899 AC 05/22 PO 06/19 1300 0903 Polyethylene Glycol 17 GM DAILY 05/20 899 AC 0 05/21 PO 06/19 1300 1016 Senna 1 TAB DAILY 05/20 899 CKD 05/21 PO 06/19 1300 1015 Venlafaxine HCl 75 MG DAILY 05/20 899 AC 05/22 PO 06/19 1300 0902 Acetaminophen 650 MG Q6H PRN PRN 05/20 0845 AC PO 06/19 0844 Hydralazine HCl 10 MG Q6H PRN PRN 05/20 844 AC PO 06/19 0844 Ondansetron HCl 4 MG TID PRN PRN 05/20 844 AC SL 06/19 0844 Heparin Sodium 5,000 UNIT Q8H 05/190 AC SUBQ 06/19 1300 2247 Buspirone HCl 10 MG BEDTIME 05/19 2099 AC 05/22 PO 06/19 1300 2016 Epoetin Donny-epbx 4,000 UNIT Kannana@2100 05/19 2099 AC 05/21 SUBQ 06/19 1300 2143 Gabapentin 300 MG BEDTIME 05/19 2099 AC 05/22 PO 06/19 1300 2016 Metoprolol Tartrate 25 MG BID 05/19 2099 AC PO 06/19 1300 2016 Trazodone HCl 150 MG BEDTIME 05/19 2099 AC PO 06/19 1300 2015 Hydrocodone Bitart/ 1 TAB Q4H PRN PRN 05/19 201 5 AC 05/20 Acetaminophen PO 07/20 1300 2244 Zolpidem Tartrate 5 MG BEDTIME PRN PRN 05/19 20 00 AC 05/22 PO 06/19 1300 2246 Recent Impressions-Last 72 Hrs RADIOLOGY - XR HIP W/PEL UNI 2+V LT 05/21 1735 Report Impression - Status: SIGNED Entered: 05/21/2020 580 IMPRESSION: 1. There is no acute osseous fracture or disloca tion. The hip joint spaces are preserved. Impression By: [email or web address] - James Kitchen D.O. Vital Signs Date Temp Pulse Resp B/P B/P Mean Pulse Ox FiO2 05/22 36.4-36.7 55-81 16-20 98-146/57-68 70.7-9 3.6 93-96 Last Documented: Result Date Time Pulse Ox 93 05/22 2248 B/P 139/68 05/22 2248 B/P Mean 91.6 05/22 2248 O2 Delivery Room air 05/22 2248 Temp 36.5 05/22 2248 Pulse 62 05/22 2248 Resp 16 05/22 2248 24 hour I O ending at 0700: 05/22 0700 05/21 1900 Intake Total 620.00 300 Output Total 2800 Balance 620.00 -2500 Intake, IV 500.00 Intake, Oral 120 300 Intake, Oral 0 Supplement Number 1 1 Bowel Movements Number Voids 1 Output, 2800 Hemodialysis PATIENT WEIGHT: Weight (lb): 171 Weight (oz): 12.16 Weight (kg): 77.909 Physical Exam General appearance: alert, awake Neck: no JVD Cardiovascular: regular rate rhythm Respiratory: aerating well, clear to auscultatio n Abdomen: non-tender, normal bowel sounds, soft Extremities: Extremities: RT AKA Neuro/CUSTODIAN MANAGER: alert, oriented x 3 Skin: dry, normal temperature Psychiatry: depressed, normal judgement/insight Diagnosis, Assessment Plan Free Text DxA P Notes Free text DxA P notes: Assessment: 1.Mechanical fall 2.Traumatic brain injury with subdural hematoma 3. Right AKA pulmonary 2020 4. IMpaired mobility/Impaired gait 5. History of depression 6. Generalized weakness 7. Phantom pain 8. End-stage renal disease on hemodialysis 3 day s a week 9. Anemia 10. History of coronary artery disease, hyperten willy, and hyperlipidemia 05/21/20 Patient's doing well Sitting in a wheelchair Participating in therapy Family visiting at the bedside 05/22/20 Patient participating in therapy daily Reportedly patient is depressed He answered all my questions but seems to be sad Plan of care: -Continue with comprehensive inpatient rehabilit [facility] rehab team -Pain control -Fall precaution -DVT prophylaxis subcu heparin -GI prophylaxis patient currently on Protonix -Pain control as pain management -Seizure precaution patient on Keppra -Continues present medications -Monitor labs -Plan of care discussed with the patient, galina franks nurse, and Dr. Cavazos. Danny Cavazos 05/25/202057: Attestations Physician Attestation Agree w/findings plan: I agree with the findings and plan as documented by JOSE Meek. Plan of care coordinated with JOSE Meek. Pertinent labs, Imaging, and store sales consultant evaluations reviewed. 74-year-old male was admitted to inpatient rehab for comprehensive rehabilitation. He is participating in therapy d blake. He reportedly is depressed today and he answered all questions bu t seems to be sad. We will continue with comprehensive inpatient rehabilita tion was per rehab team, pain control, fall precautions, DVT prophylaxis with subcu heparin, GI prophylaxis with Protonix, pain control as pain management, seizure precautions with Keppra, and present medications. We will continue to mon itor his labs. Electronically Signed by Javier Meek NP on 0 05/24/20 at 0422 RPT #:[id number] END OF REPORT 2020-05-22 22:56:00-00:00 [facility] REPORT#:[id number] REPORT STATUS: Signed DATE:05/22/20 TIME: 2255 PATIENT: DARIEN GROSSMAN UNIT #: [id number] ROOM/BED: [place] [address] : 45 AGE: 74 SEX: M ATTEND: Sekou Curtis MD ADM AUTHOR: Javier Meek MONOGRAM MAKER * ALL edits or amendments must be made on the C-Note/computer document * Javier Meek 05/22/202255: Subjective Chief Complaint: Right AKA Possible depression Review of Systems Constitutional: Denies: chills, fever. ENT: Denies: earache, nasal congestion, sore throat. Respiratory: Denies: hemoptysis, parox no cturnal dyspnea, pleurisy, pleuritic pain, pneumonia , SOB, wheezing. Cardiovascular: Denies: chest pain, palpitations. GI: Denies: abdominal pain, nausea, vomiting. : Denies: flank pain, frequency, hematuria. Musculoskeletal: Denies: extremity pain, extr emity swelling, joint pain, lumbar pain, neck pain. Neuro: Denies: change in LOC, confusion, dizziness, foc al weakness, gait problem, headache, lightheaded, numbness, seizure, slurre d speech, spinning sensation, syncope, unable to speak, vision change. Psych: Denies: agitation, anxiety, auditory hallucinati on, change in mental status, confusion, delusional, depre ssion, homicidal ideation, hostile, insomnia, stress , suicidal ideation, visual hallucination. Objective General VS/I O: Laboratory Tests 05/22/20 0535: [Embedded Image Not Available] 05/21/20 0550: [Embedded Image Not Available] Laboratory Tests 05/22 05/22 05/21 05/20 0535 0535 0550 0535 Chemistry Sodium (134 - 147 mEq/L) 137 134 Potassium (3.4 - 5.0 mEq/L) 3.6 3.8 Chloride (100 - 108 mEq/L) 97 L 96 L Carbon Dioxide (21 - 33 mEq/l) 32 30 Anion Gap (0 - 20) 11 12 BUN (7 - 18 mg/dL) 31 H 44 H Creatinine (0.6 - 1.3 mg/dL) 3.4 H 4.2 H Glomerular Filtr Rate (70 - 80) 17.8 L 13.9 L Glucose (70 - 110 mg/dL) 84 88 Calcium (8.0 - 10.5 mg/dL) 9.1 9.2 Total Bilirubin (0.0 - 1.0 mg/dL) 0.60 AST (15 - 37 IUnit/L) 14 L ALT (30 - 65 IUnit/L) 9 L Total Alk Phosphatase (20 - 125 IUnit/L) 104 C-Reactive Protein (<10.0 mg/L) 192.0 H Total Protein (6.4 - 8.2 g/dL) 6.9 Albumin (3.4 - 5.0 g/dL) 3.20 L Prealbumin (16.0 - 40.0 mg/dL) 13.1 L Laboratory Tests 05/22 05/22 05/21 05/20 0535 0535 0550 0535 Hematology WBC (4.5 - 11.0 x10 3/uL) 12.5 H 12.3 H 12.9 H RBC (4.00 - 5.60 x10 6/uL) 3.42 L 3.09 L 3.11 L Hgb (12.5 - 16.9 g/dL) 9.9 L 8.9 L 9.0 L Hct (37.5 - 50.7 %) 31.1 L 28.3 L 28.2 L MCV (81.0 - 99.0 fL) 90.9 91.6 90.7 MCH (27.0 - 33.0 pg) 28.9 28.8 28.9 MCHC (33.0 - 37.0 g/dL) 31.8 L 31.4 L 31.9 L RDW (11.5 - 14.5 %) 14.6 H 14.4 14.5 Plt Count (150 - 400 x10 3/uL) 412 H 373 316 MPV (7.0 - 9.0 fL) 8.6 8.8 8.4 Neut % (Auto) (56.0 - 77.0 %) 75.3 74.4 75.0 Lymph % (Auto) (14.0 - 32.0 %) 7.6 L 9.4 L 7.0 L Dolores % (Auto) (4.8 - 9.0 %) 9.8 H 10.2 H 10.3 H Eos % (Auto) (0.3 - 3.7 %) 6.3 H 5.2 H 6.9 H Baso % (Auto) (0.0 - 2.0 %) 0.4 0.3 0.2 Neut # (Auto) (2.0 - 7.6 x10 3/uL) 9.40 H 9.13 H 9.64 H Lymph # (Auto) (1.0 - 3.8 x10 3/uL) 0.95 L 1.1 6 0.90 L Dolores # (Auto) (0.1 - 0.8 x10 3/uL) 1.23 H 1.25 H 1.32 H Eos # (Auto) (0.0 - 0.2 x10 3/uL) 0.79 H 0.64 H 0.89 H Baso # (Auto) (0.0 - 0.2 x10 3/uL) 0.05 0.04 0. 03 Abs Immat Gran (auto) (0.00 - 0.03 0.08 H 0.06 H 0.08 H x10 3/uL) Add Manual Diff NO NO NO Immature Gran % (0.0 - 2.0 %) 0.6 0.5 0.6 Nucleated RBC % (0 - 0 %) 0.0 0.0 0.0 Nucleated RBCs # (Man) (0.0 - 0.1 x10 3/uL) 0.0 0 0.00 0.00 ESR Westergren (0 - 15 mm/hr) 114 H Microbiology Date/Time Procedure - Status Source Growth 05/21 1744 Gram Stain - COMP WND OTHER 05/20 529 MRSA DNA Surveillance Screen - COMP NASAL Microbiology: 05/21 1744 WND OTHER: Gram Stain - COMP 05/21 544 LEG: Wound Culture - RES GRAM NEGATIVE TRACEY 05/20 529 NASAL: MRSA DNA Surveillance Screen - COMP Vital Signs: Date Time Temp Pulse Resp B/P B/P Pulse O2 O2 F low FiO2 Mean Ox Delivery Rate 05/229 36.5 62 16 139/68 91.6 93 Room air 05/22 1916 36.6 64 16 133/67 89.2 94 Room air 05/22 1600 36.4 74 20 127/68 87 95 Room air 05/22 0745 36.7 81 16 146/67 93.6 96 Room air 05/22 0044 36.4 55 16 98/57 70.7 95 Room air 05/22 0700 05/21 2300 05/21 1500 Intake Total 620.00 300 Output Total 2800 Balance -2180.00 300 Intake, IV 500.00 Intake, Oral 120 300 Intake, Oral 0 Supplement Number 1 1 Bowel Movements Number Voids 1 Output, 2800 Hemodialysis Current Medications Sig/Tatum Start time Last Medication Dose Route Stop Time Status Admin Collagenase 1 APPLIC DAILY 05/22 899 AC 05/22 TOPICAL 06/21 0859 0904 Cefepime HCl 1 GM Q12H 05/21 2099 AC 05/22 Sodium Chloride 10 ML IV 06/04 Miscellaneous 1 EACH ASDIR 05/21 1145 CKD Information IV 06/20 1144 Lidocaine 1 PATCH DAILY 05/21 899 AC 05/22 TOPICAL 06/21 0759 0908 Amitriptyline HCl 10 MG BEDTIME 05/20 2099 AC 0 05/22 PO 06/19 Triamcinolone 40 MG PROCEDURE 05/20 1944 CKD Acetonide IM 06/20 1943 Aspirin 81 MG DAILY 05/20 899 AC 05/22 PO 06/19 1300 0904 Clopidogrel Bisulfate 75 MG DAILY 05/20 899 AC 05/22 PO 06/19 1300 0904 Furosemide 40 MG DAILY 05/20 899 AC 05/22 PO 06/19 1300 0903 Polyethylene Glycol 17 GM DAILY 05/20 899 AC 0 05/21 PO 06/19 1300 1016 Senna 1 TAB DAILY 05/20 899 CKD 05/21 PO 06/19 1300 1015 Venlafaxine HCl 75 MG DAILY 05/20 899 AC 05/22 PO 06/19 1300 0902 Acetaminophen 650 MG Q6H PRN PRN 05/20 844 AC PO 06/19 0844 Hydralazine HCl 10 MG Q6H PRN PRN 05/20 844 AC PO 06/19 0844 Ondansetron HCl 4 MG TID PRN PRN 05/20 844 AC SL 06/19 0844 Heparin Sodium 5,000 UNIT Q8H 05/19 2199 AC SUBQ 06/19 1300 2247 Buspirone HCl 10 MG BEDTIME 05/19 2099 AC 05/22 PO 06/19 1300 2017 Epoetin Donny-epbx 4,000 UNIT Gabya@2100 05/19 2099 AC 05/21 SUBQ 06/19 1300 2143 Gabapentin 300 MG BEDTIME 05/19 2099 AC 05/22 PO 06/19 1300 2016 Metoprolol Tartrate 25 MG BID 05/19 2099 AC PO 06/19 1300 2016 Trazodone HCl 150 MG BEDTIME 05/19 2099 AC PO 06/19 1300 2016 Hydrocodone Bitart/ 1 TAB Q4H PRN PRN 05/19 201 5 AC 05/20 Acetaminophen PO 07/20 1300 2244 Zolpidem Tartrate 5 MG BEDTIME PRN PRN 05/19 20 00 AC 05/22 PO 06/19 1300 2246 Recent Impressions-Last 72 Hrs RADIOLOGY - XR HIP W/PEL UNI 2+V LT 05/21 1735 Report Impression - Status: SIGNED Entered: 05/21/2020 183 IMPRESSION: 1. There is no acute osseous fracture or disloca tion. The hip joint spaces are preserved. Impression By: [email or web address] - James Kitchen D.O. Vital Signs Date Temp Pulse Resp B/P B/P Mean Pulse Ox FiO2 05/22 36.4-36.7 55-81 16-20 98-146/57-68 70.7-9 3.6 93-96 Last Documented: Result Date Time Pulse Ox 93 05/22 2248 B/P 139/68 05/22 2248 B/P Mean 91.6 05/22 2248 O2 Delivery Room air 05/22 2248 Temp 36.5 05/22 2248 Pulse 62 05/22 224 Resp 16 05/22 2248 24 hour I O ending at 0700: 05/22 0700 05/21 1900 Intake Total 620.00 300 Output Total 2800 Balance 620.00 -2500 Intake, IV 500.00 Intake, Oral 120 300 Intake, Oral 0 Supplement Number 1 1 Bowel Movements Number Voids 1 Output, 2800 Hemodialysis PATIENT WEIGHT: Weight (lb): 171 Weight (oz): 12.16 Weight (kg): 77.909 Physical Exam General appearance: alert, awake Neck: no JVD Cardiovascular: regular rate rhythm Respiratory: aerating well, clear to auscultatio n Abdomen: non-tender, normal bowel sounds, soft Extremities: Extremities: RT AKA Neuro/CUSTODIAN MANAGER: alert, oriented x 3 Skin: dry, normal temperature Psychiatry: depressed, normal judgement/insight Diagnosis, Assessment Plan Free Text DxA P Notes Free text DxA P notes: Assessment: 1.Mechanical fall 2.Traumatic brain injury with subdural hematoma 3. Right AKA pulmonary 2020 4. IMpaired mobility/Impaired gait 5. History of depression 6. Generalized weakness 7. Phantom pain 8. End-stage renal disease on hemodialysis 3 day s a week 9. Anemia 10. History of coronary artery disease, hyperten willy, and hyperlipidemia 05/21/20 Patient's doing well Sitting in a wheelchair Participating in therapy Family visiting at the bedside 05/22/20 Patient participating in therapy daily Reportedly patient is depressed He answered all my questions but seems to be sad Plan of care: -Continue with comprehensive inpatient rehabilit [facility] rehab team -Pain control -Fall precaution -DVT prophylaxis subcu heparin -GI prophylaxis patient currently on Protonix -Pain control as pain management -Seizure precaution patient on Keppra -Continues present medications -Monitor labs -Plan of care discussed with the patient, galina franks nurse, and Dr. Cavazos. Danny Cavazos 05/25/202057: Attestations Physician Attestation Agree w/findings plan: I agree with the findings and plan as documented by JOSE Meek. Plan of care coordinated with JOSE Meek. Pertinent labs, Imaging, and store sales consultant evaluations reviewed. 74-year-old male was admitted to inpatient rehab for comprehensive rehabilitation. He is participating in therapy katrin lozano. He reportedly is depressed today and he answered all questions bu t seems to be sad. We will continue with comprehensive inpatient rehabilita tion was per rehab team, pain control, fall precautions, DVT prophylaxis with subcu heparin, GI prophylaxis with Protonix, pain control as pain management, seizure precautions with Keppra, and present medications. We will continue to mon itor his labs. Electronically Signed by Javier Meek NP on 0 05/24/20 at 0422 RPT #:[id number] END OF REPORT 2020-05-22 22:56:00-00:00 [facility] REPORT#:[id number] REPORT STATUS: Signed DATE:05/22/20 TIME: 2255 PATIENT: DARIEN GROSSMAN UNIT #: [id number] ROOM/BED: [place] [address] : 45 AGE: 74 SEX: M ATTEND: Rosa Curtis MD ADM AUTHOR: Javier Meek MONOGRAM MAKER * ALL edits or amendments must be made on the C-Note/computer document * Javier Meek 05/22/20 2606: Subjective Chief Complaint: Right AKA Possible depression Review of Systems Constitutional: Denies: chills, fever. ENT: Denies: earache, nasal congestion, sore throat. Respiratory: Denies: hemoptysis, parox no cturnal dyspnea, pleurisy, pleuritic pain, pneumonia , SOB, wheezing. Cardiovascular: Denies: chest pain, palpitations. GI: Denies: abdominal pain, nausea, vomiting. : Denies: flank pain, frequency, hematuria. Musculoskeletal: Denies: extremity pain, extr emity swelling, joint pain, lumbar pain, neck pain. Neuro: Denies: change in LOC, confusion, dizziness, foc al weakness, gait problem, headache, lightheaded, numbness, seizure, slurre d speech, spinning sensation, syncope, unable to speak, vision change. Psych: Denies: agitation, anxiety, auditory hallucinati on, change in mental status, confusion, delusional, depre ssion, homicidal ideation, hostile, insomnia, stress , suicidal ideation, visual hallucination. Objective General VS/I O: Laboratory Tests 05/22/20 0535: [Embedded Image Not Available] 05/21/20 0550: [Embedded Image Not Available] Laboratory Tests 05/22 05/22 05/21 05/20 0535 0535 0550 0535 Chemistry Sodium (134 - 147 mEq/L) 137 134 Potassium (3.4 - 5.0 mEq/L) 3.6 3.8 Chloride (100 - 108 mEq/L) 97 L 96 L Carbon Dioxide (21 - 33 mEq/l) 32 30 Anion Gap (0 - 20) 11 12 BUN (7 - 18 mg/dL) 31 H 44 H Creatinine (0.6 - 1.3 mg/dL) 3.4 H 4.2 H Glomerular Filtr Rate (70 - 80) 17.8 L 13.9 L Glucose (70 - 110 mg/dL) 84 88 Calcium (8.0 - 10.5 mg/dL) 9.1 9.2 Total Bilirubin (0.0 - 1.0 mg/dL) 0.60 AST (15 - 37 IUnit/L) 14 L ALT (30 - 65 IUnit/L) 9 L Total Alk Phosphatase (20 - 125 IUnit/L) 104 C-Reactive Protein (<10.0 mg/L) 192.0 H Total Protein (6.4 - 8.2 g/dL) 6.9 Albumin (3.4 - 5.0 g/dL) 3.20 L Prealbumin (16.0 - 40.0 mg/dL) 13.1 L Laboratory Tests 05/22 05/22 05/21 05/20 0535 0535 0550 0535 Hematology WBC (4.5 - 11.0 x10 3/uL) 12.5 H 12.3 H 12.9 H RBC (4.00 - 5.60 x10 6/uL) 3.42 L 3.09 L 3.11 L Hgb (12.5 - 16.9 g/dL) 9.9 L 8.9 L 9.0 L Hct (37.5 - 50.7 %) 31.1 L 28.3 L 28.2 L MCV (81.0 - 99.0 fL) 90.9 91.6 90.7 MCH (27.0 - 33.0 pg) 28.9 28.8 28.9 MCHC (33.0 - 37.0 g/dL) 31.8 L 31.4 L 31.9 L RDW (11.5 - 14.5 %) 14.6 H 14.4 14.5 Plt Count (150 - 400 x10 3/uL) 412 H 373 316 MPV (7.0 - 9.0 fL) 8.6 8.8 8.4 Neut % (Auto) (56.0 - 77.0 %) 75.3 74.4 75.0 Lymph % (Auto) (14.0 - 32.0 %) 7.6 L 9.4 L 7.0 L Dolores % (Auto) (4.8 - 9.0 %) 9.8 H 10.2 H 10.3 H Eos % (Auto) (0.3 - 3.7 %) 6.3 H 5.2 H 6.9 H Baso % (Auto) (0.0 - 2.0 %) 0.4 0.3 0.2 Neut # (Auto) (2.0 - 7.6 x10 3/uL) 9.40 H 9.13 H 9.64 H Lymph # (Auto) (1.0 - 3.8 x10 3/uL) 0.95 L 1.16 0.90 L Dolores # (Auto) (0.1 - 0.8 x10 3/uL) 1.23 H 1.25 H 1.32 H Eos # (Auto) (0.0 - 0.2 x10 3/uL) 0.79 H 0.64 H 0.89 H Baso # (Auto) (0.0 - 0.2 x10 3/uL) 0.05 0.04 0. 03 Abs Immat Gran (auto) (0.00 - 0.03 0.08 H 0.06 H 0.08 H x10 3/uL) Add Manual Diff NO NO NO Immature Gran % (0.0 - 2.0 %) 0.6 0.5 0.6 Nucleated RBC % (0 - 0 %) 0.0 0.0 0.0 Nucleated RBCs # (Man) (0.0 - 0.1 x10 3/uL) 0.0 0 0.00 0.00 ESR Westergren (0 - 15 mm/hr) 114 H Microbiology Date/Time Procedure - Status Source Growth 05/21 1744 Gram Stain - COMP WND OTHER 05/20 529 MRSA DNA Surveillance Screen - COMP NASAL Microbiology: 05/21 1744 WND OTHER: Gram Stain - COMP 05/21 544 LEG: Wound Culture - RES GRAM NEGATIVE TRACEY 05/20 529 NASAL: MRSA DNA Surveillance Screen - COMP Vital Signs: Date Time Temp Pulse Resp B/P B/P Pulse O2 O2 F low FiO2 Mean Ox Delivery Rate 05/229 36.5 62 16 139/68 91.6 93 Room air 05/22 1916 36.6 64 16 133/67 89.2 94 Room air 05/22 1600 36.4 74 20 127/68 87 95 Room air 05/22 0745 36.7 81 16 146/67 93.6 96 Room air 05/22 0044 36.4 55 16 98/57 70.7 95 Room air 05/22 0700 05/21 2300 05/21 1500 Intake Total 620.00 300 Output Total 2800 Balance -2180.00 300 Intake, IV 500.00 Intake, Oral 120 300 Intake, Oral 0 Supplement Number 1 1 Bowel Movements Number Voids 1 Output, 2800 Hemodialysis Current Medications Sig/Tatum Start time Last Medication Dose Route Stop Time Status Admin Collagenase 1 APPLIC DAILY 05/22 899 AC 05/22 TOPICAL 06/21 0859 0904 Cefepime HCl 1 GM Q12H 05/21 2099 AC 05/22 Sodium Chloride 10 ML IV 06/04 Miscellaneous 1 EACH ASDIR 05/21 1145 CKD Information IV 06/20 1144 Lidocaine 1 PATCH DAILY 05/21 899 AC 05/22 TOPICAL 06/20 0859 0908 Amitriptyline HCl 10 MG BEDTIME 05/20 2099 AC 0 05/22 PO 06/19 Triamcinolone 40 MG PROCEDURE 05/20 1944 CKD Acetonide IM 06/20 1943 Aspirin 81 MG DAILY 05/20 899 AC 05/22 PO 06/19 1300 0904 Clopidogrel Bisulfate 75 MG DAILY 05/20 899 AC 05/22 PO 06/19 1300 0904 Furosemide 40 MG DAILY 05/20 899 AC 05/22 PO 06/19 1300 0903 Polyethylene Glycol 17 GM DAILY 05/20 899 AC 0 05/21 PO 06/19 1300 1016 Senna 1 TAB DAILY 05/20 899 CKD 05/21 PO 06/19 1300 1015 Venlafaxine HCl 75 MG DAILY 05/20 899 AC 05/12 1 PO 06/19 1300 0902 Acetaminophen 650 MG Q6H PRN PRN 05/20 0845 AC PO 06/19 0844 Hydralazine HCl 10 MG Q6H PRN PRN 05/20 0845 AC PO 06/19 0844 Ondansetron HCl 4 MG TID PRN PRN 05/20 0845 AC SL 06/19 0844 Heparin Sodium 5,000 UNIT Q8H 05/19 2199 AC SUBQ 06/19 1300 2247 Buspirone HCl 10 MG BEDTIME 05/19 2099 AC 05/22 PO 06/19 1300 2017 Epoetin Donny-epbx 4,000 UNIT TuThSa@2100 05/19 2099 AC 05/21 SUBQ 06/19 1300 2143 Gabapentin 300 MG BEDTIME 05/19 2099 AC 05/22 PO 06/19 1300 2016 Metoprolol Tartrate 25 MG BID 05/19 2099 AC PO 06/19 1300 2017 Trazodone HCl 150 MG BEDTIME 05/19 2099 AC PO 06/19 1300 2016 Hydrocodone Bitart/ 1 TAB Q4H PRN PRN 05/19 201 5 AC 05/20 Acetaminophen PO 07/20 1300 2244 Zolpidem Tartrate 5 MG BEDTIME PRN PRN 05/19 20 00 AC 05/22 PO 06/19 1300 2246 Recent Impressions-Last 72 Hrs RADIOLOGY - XR HIP W/PEL UNI 2+V LT 05/21 1735 Report Impression - Status: SIGNED Entered: 05/21/2020 1838 IMPRESSION: 1. There is no acute osseous fracture or disloca tion. The hip joint spaces are preserved. Impression By: [email or web address] - James Kitchen D.O. Vital Signs Date Temp Pulse Resp B/P B/P Mean Pulse Ox FiO2 05/22 36.4-36.7 55-81 16-20 98-146/57-68 70.7-9 3.6 93-96 Last Documented: Result Date Time Pulse Ox 93 05/22 2248 B/P 139/68 05/22 2248 B/P Mean 91.6 05/22 2248 O2 Delivery Room air 05/22 2248 Temp 36.5 05/22 2248 Pulse 62 05/22 224 Resp 16 05/22 2248 24 hour I O ending at 0700: 05/22 0700 05/21 1900 Intake Total 620.00 300 Output Total 2800 Balance 620.00 -2500 Intake, IV 500.00 Intake, Oral 120 300 Intake, Oral 0 Supplement Number 1 1 Bowel Movements Number Voids 1 Output, 2800 Hemodialysis PATIENT WEIGHT: Weight (lb): 171 Weight (oz): 12.16 Weight (kg): 77.909 Physical Exam General appearance: alert, awake Neck: no JVD Cardiovascular: regular rate rhythm Respiratory: aerating well, clear to auscultatio n Abdomen: non-tender, normal bowel sounds, soft Extremities: Extremities: RT AKA Neuro/CUSTODIAN MANAGER: alert, oriented x 3 Skin: dry, normal temperature Psychiatry: depressed, normal judgement/insight Diagnosis, Assessment Plan Free Text DxA P Notes Free text DxA P notes: Assessment: 1.Mechanical fall 2.Traumatic brain injury with subdural hematoma 3. Right AKA pulmonary 2020 4. IMpaired mobility/Impaired gait 5. History of depression 6. Generalized weakness 7. Phantom pain 8. End-stage renal disease on hemodialysis 3 day s a week 9. Anemia 10. History of coronary artery disease, hyperten willy, and hyperlipidemia 05/21/20 Patient's doing well Sitting in a wheelchair Participating in therapy Family visiting at the bedside 05/22/20 Patient participating in therapy daily Reportedly patient is depressed He answered all my questions but seems to be sad Plan of care: -Continue with comprehensive inpatient rehabilit [facility] rehab team -Pain control -Fall precaution -DVT prophylaxis subcu heparin -GI prophylaxis patient currently on Protonix -Pain control as pain management -Seizure precaution patient on Keppra -Continues present medications -Monitor labs -Plan of care discussed with the patient, galina palma's nurse, and Dr. Cavazos. Danny Cavazos 05/25/202057: Attestations Physician Attestation Agree w/findings plan: I agree with the findings and plan as documented by JOSE Meek. Plan of care coordinated with JOSE Meek. Pertinent labs, Imaging, and store sales consultant evaluations reviewed. 74-year-old male was admitted to inpatient rehab for comprehensive rehabilitation. He is participating in therapy d blake. He reportedly is depressed today and he answered all questions bu t seems to be sad. We will continue with comprehensive inpatient rehabilita tion was per rehab team, pain control, fall precautions, DVT prophylaxis with subcu heparin, GI prophylaxis with Protonix, pain control as pain management, seizure precautions with Keppra, and present medications. We will continue to mon itor his labs. Electronically Signed by Javier Meek NP on 0 05/24/20 at 0422 Electronically Signed by Danny Keith MD 05/25/20 at 0964 RPT #:[id number] END OF REPORT 2020-05-22 09:18:00-00:00 [facility] ([facility]) Pain Management Progress Note REPORT#:[id number] REPORT STATUS: Signed DATE:05/22/20 TIME: 917 PATIENT: DRAIEN GROSSMAN UNIT #: [id number] ROOM/BED: [place] [address] : 45 AGE: 74 SEX: M ATTEND: Rosa Curtis MD ADM AUTHOR: Dusty Smiley NP * ALL edits or amendments must be made on the C-Note/computer document * Subjective Chief complaint: Patient seen and examined. Chart and VIJAYA reyes Patient being seen for Left thigh pain, lateral femoral cutaneous neuralgia, Right lower extremity pain, stump pain, Peripheral neuropathy, phantom limb pain right lower extremity, Patient is very depressed today. He states he is depressed over the current situation. He continues to have the left leg jenny n. The hip xray was normal. I discussed performing the lat eral femoral cataneous nerve block which he is still intrested in, but will defer to until tomorrow due to his mood. he was agreeable to that. No other changes are noted. Patient states symptoms are manageable with use of current medications. No fever/chills, chest pain, dyspnea, no emesis, pruritus, or hallucinations. 14-point ROS undertaken unremarkable except as n oted. Objective General VS/I O: Vital Signs Date Temp Pulse Resp B/P B/P Mean Pulse Ox FiO2 05/21-05/22 97.5-99.1 55-81 16-24 98-146/57-69 70.7-93.6 93-96 Last Documented: Result Date Time Pulse Ox 96 05/22 0745 B/P 146/67 05/22 0745 B/P Mean 93.6 05/22 0745 O2 Delivery Room air 05/22 0745 Temp 98.1 05/22 0745 Pulse 81 05/22 0745 Resp 16 05/22 0745 24 hour I O ending at 0700: 05/22 0700 05/21 1900 Intake Total 620.00 300 Output Total 2800 Balance 620.00 -2500 Intake, IV 500.00 Intake, Oral 120 300 Intake, Oral 0 Supplement Number 1 1 Bowel Movements Number Voids 1 Output, 2800 Hemodialysis PATIENT WEIGHT: Weight (lb): 171 Weight (oz): 12.16 Weight (kg): 77.909 Medications: Active Meds + DC'd Last 24 Hrs Collagenase 1 APPLIC DAILY TOPICAL Cefepime HCl 1 GM Q12H IV Sodium Chloride 10 ML Vancomycin HCl 1,500 MG ONCE ONE IV (DC) Sodium Chloride 500 ML Miscellaneous Information 1 EACH ASDIR IV (CKD) Lidocaine 1 PATCH DAILY TOPICAL Amitriptyline HCl 10 MG BEDTIME PO Triamcinolone Acetonide 40 MG PROCEDURE IM (CKD) Aspirin 81 MG DAILY PO Clopidogrel Bisulfate 75 MG DAILY PO Furosemide 40 MG DAILY PO Polyethylene Glycol 17 GM DAILY PO Senna 1 TAB DAILY PO (CKD) Venlafaxine HCl 75 MG DAILY PO Acetaminophen 650 MG Q6H PRN PRN PO Hydralazine HCl 10 MG Q6H PRN PRN PO Ondansetron HCl 4 MG TID PRN PRN SL Heparin Sodium 5,000 UNIT Q8H SUBQ Buspirone HCl 10 MG BEDTIME PO Epoetin Donny-epbx 4,000 UNIT TuThSa@2100 SUBQ Gabapentin 300 MG BEDTIME PO Metoprolol Tartrate 25 MG BID PO Trazodone HCl 150 MG BEDTIME PO Hydrocodone Bitart/Acetaminophen 1 TAB Q4H PRN P RN PO Zolpidem Tartrate 5 MG BEDTIME PRN PRN PO Physical Exam General appearance: alert, awake, oriented, no a cute distress Head/eyes: atraumatic, normocephalic, normal con junctiva/sclera ENT: normal pharynx, moist mucosal membranes Neck: full range of motion, non-tender, supple/n o meningismus Cardiovascular: regular rate rhythm Respiratory: clear to auscultation, no distress Abdomen quadrants LLQ normal bowel sounds, LUQ normal roberto l sounds, RLQ normal bowel sounds, RUQ normal bowel sounds Extremities: moves all, no edema, pedal pulses Neuro/CUSTODIAN MANAGER: no motor deficits, no sensory deficit s, CNII-XII grossly intact Skin: dry, intact, no rash Results Findings/data: Laboratory Tests: 05/22 05/22 0535 0535 Chemistry C-Reactive Protein (<10.0 mg/L) 192.0 H Prealbumin (16.0 - 40.0 mg/dL) 13.1 L Hematology WBC (4.5 - 11.0 x10 3/uL) 12.5 H RBC (4.00 - 5.60 x10 6/uL) 3.42 L Hgb (12.5 - 16.9 g/dL) 9.9 L Hct (37.5 - 50.7 %) 31.1 L MCV (81.0 - 99.0 fL) 90.9 MCH (27.0 - 33.0 pg) 28.9 MCHC (33.0 - 37.0 g/dL) 31.8 L RDW (11.5 - 14.5 %) 14.6 H Plt Count (150 - 400 x10 3/uL) 412 H MPV (7.0 - 9.0 fL) 8.6 Neut % (Auto) (56.0 - 77.0 %) 75.3 Lymph % (Auto) (14.0 - 32.0 %) 7.6 L Dolores % (Auto) (4.8 - 9.0 %) 9.8 H Eos % (Auto) (0.3 - 3.7 %) 6.3 H Baso % (Auto) (0.0 - 2.0 %) 0.4 Neut # (Auto) (2.0 - 7.6 x10 3/uL) 9.40 H Lymph # (Auto) (1.0 - 3.8 x10 3/uL) 0.95 L Dolores # (Auto) (0.1 - 0.8 x10 3/uL) 1.23 H Eos # (Auto) (0.0 - 0.2 x10 3/uL) 0.79 H Baso # (Auto) (0.0 - 0.2 x10 3/uL) 0.05 Abs Immat Gran (auto) (0.00 - 0.03 x10 3/uL) 0. 08 H Add Manual Diff NO Immature Gran % (0.0 - 2.0 %) 0.6 Nucleated RBC % (0 - 0 %) 0.0 Nucleated RBCs # (Man) (0.0 - 0.1 x10 3/uL) 0.0 0 ESR Westergren (0 - 15 mm/hr) 114 H Microbiology: Date/Time Procedure - Status Source Growth 05/21 1744 Gram Stain - COMP WND OTHER Recent Impressions: RADIOLOGY - XR HIP W/PEL UNI 2+V LT 05/21 1734 Report Impression - Status: SIGNED Entered: 05/21/2020 6598 IMPRESSION: 1. There is no acute osseous fracture or disloca tion. The hip joint spaces are preserved. Impression By: [email or web address] - James Kitchen D.O. Diagnosis, Assessment Plan Free text A P: A/P: Patient is a 74 year old male presenting with: Left thigh pain, lateral femoral cutaneous neura lgia -We will perform a left lateral femoral cutaneou s nerve block to see if this helps with the pain -Lidoderm patch to left thigh daily -Otis 10/325 mg oral every 4 hours as needed fo r pain -manageable Right lower extremity pain, stump pain -Pain medications as outlined above Peripheral neuropathy, phantom limb pain right l ower extremity -Gabapentin 300 mg oral at bedtime -amitriptyline 10 mg oral at bedtime -stable Antalgic/impaired gait -PT/OT -Gait training, improve endurance and strength -Transfer training -PMR following End-stage renal disease on hemodialysis -Nephrology following Subdural hematoma -Monitor mental status with opioids and other se dative medications Depression -monitoring Past medical history: Subdural hematoma, CAD, en d-stage renal disease on HD, hyperlipidemia, septic arthr itis of prosthesis of previous right TKA, depression Past surgical history: Right TKR, right AKA, cor onary stents Social history: Negative for alcohol, tobacco, i llicit drug use Family history: Not relevant All pertinent diagnostics/labs from the last 24 hours and during the course of the admission were reviewed. Plan discussed with the patient and the nurse. A ll questions were answered. Patient will be monitored for deleteriou s side effects associated with opioids and sedative medications. Me dications will be adjusted further clinical course. Risks versus benefits of opioid medications were reviewed to include, but not limited to respiratory depression, accid ental overdose, altered mental status, sudden , constipation which could result in bowel obstruction, seizures, withdrawal, dependency/addiction, risk for falls . Goals: Daily pain control. Case discussed with Dr Lofton whom agrees. 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: Total Prescriptions 28 Total Private Pay 0 Total Prescribers 4 Total Pharmacies 1 05/06/2020 1 05/06/2020 HYDROCODONE-ACETAMIN 10- 325 MG 30.0 7 [facility] SPA [id number] [facility] ([id number]) 0 42.86 MME Comm Ins [place] 04/20/2020 1 12/24/2019 ZOLPIDEM TARTRATE 10 MG TABLET 30.0 30 PE LAT [id number] [facility] ([id number]) 4 Comm Ins [place] 03/21/2020 1 12/24/2019 ZOLPIDEM TARTRATE 10 MG TABLET 30.0 30 PE LAT [id number] [facility] ([id number]) 3 Comm Ins [place] 02/20/2020 1 12/24/2019 ZOLPIDEM TARTRATE 10 MG TABLET 30.0 30 PE LAT [id number] [facility] ([id number]) 2 [place] 01/21/2020 1 12/24/2019 ZOLPIDEM TARTRATE 10 MG TABLET 30.0 30 PE LAT [id number] [facility] ([id number]) 1 [place] 12/24/2019 1 12/24/2019 ZOLPIDEM TARTRATE 10 MG TABLET 30.0 30 PE LAT [id number] [facility] (1602) 0 [place] 11/25/2019 1 07/07/2019 ZOLPIDEM TARTRATE 10 MG TABLET 30.0 30 PE LAT [id number] [facility] (1602) 5 [place] Ins [place] [id number] ([id number]) [address] [place] [address] at 1425 RPT #:[id number] END OF REPORT 2020-05-22 09:18:00-00:00 [facility] Note REPORT#:[id number] REPORT STATUS: Signed DATE:05/22/20 TIME: 917 PATIENT: DARIEN GROSSMAN UNIT #: [id number] ROOM/BED: [place] [address] : 45 AGE: 74 SEX: M ATTEND: Rosa Curtis MD ADM AUTHOR: Dusty Smiley NP * ALL edits or amendments must be made on the el [employer]/computer document * Subjective Chief complaint: Patient seen and examined. Chart and VIJAYA reyes Patient being seen for Left thigh pain, lateral femoral cutaneous neuralgia, Right lower extremity pain, stump pain, Peripheral neuropathy, phantom limb pain right lower extremity, Patient is very depressed today. He states he is depressed over the current situation. He continues to have the left leg jenny n. The hip xray was normal. I discussed performing the lat eral femoral cataneous nerve block which he is still intrested in, but will defer to until tomorrow due to his mood. he was agreeable to that. No other changes are noted. Patient states symptoms are manageable with use of current medications. No fever/chills, chest pain, dyspnea, no emesis, pruritus, or hallucinations. 14-point ROS undertaken unremarkable except as n oted. Objective General VS/I O: Vital Signs Date Temp Pulse Resp B/P B/P Mean Pulse Ox FiO2 05/21-05/22 97.5-99.1 55-81 16-24 98-146/57-69 70.7-93.6 93-96 Last Documented: Result Date Time Pulse Ox 96 05/22 0745 B/P 146/67 05/22 0745 B/P Mean 93.6 05/22 0745 O2 Delivery Room air 05/22 744 Temp 98.1 05/22 0745 Pulse 81 05/22 0745 Resp 16 05/22 0745 24 hour I O ending at 0700: 05/22 0700 05/21 1900 Intake Total 620.00 300 Output Total 2800 Balance 620.00 -2500 Intake, IV 500.00 Intake, Oral 120 300 Intake, Oral 0 Supplement Number 1 1 Bowel Movements Number Voids 1 Output, 2800 Hemodialysis PATIENT WEIGHT: Weight (lb): 171 Weight (oz): 12.16 Weight (kg): 77.909 Medications: Active Meds + DC'd Last 24 Hrs Collagenase 1 APPLIC DAILY TOPICAL Cefepime HCl 1 GM Q12H IV Sodium Chloride 10 ML Vancomycin HCl 1,500 MG ONCE ONE IV (DC) Sodium Chloride 500 ML Miscellaneous Information 1 EACH ASDIR IV (CKD) Lidocaine 1 PATCH DAILY TOPICAL Amitriptyline HCl 10 MG BEDTIME PO Triamcinolone Acetonide 40 MG PROCEDURE IM (CKD) Aspirin 81 MG DAILY PO Clopidogrel Bisulfate 75 MG DAILY PO Furosemide 40 MG DAILY PO Polyethylene Glycol 17 GM DAILY PO Senna 1 TAB DAILY PO (CKD) Venlafaxine HCl 75 MG DAILY PO Acetaminophen 650 MG Q6H PRN PRN PO Hydralazine HCl 10 MG Q6H PRN PRN PO Ondansetron HCl 4 MG TID PRN PRN SL Heparin Sodium 5,000 UNIT Q8H SUBQ Buspirone HCl 10 MG BEDTIME PO Epoetin Donny-epbx 4,000 UNIT Gabyhugh@2100 SUBQ Gabapentin 300 MG BEDTIME PO Metoprolol Tartrate 25 MG BID PO Trazodone HCl 150 MG BEDTIME PO Hydrocodone Bitart/Acetaminophen 1 TAB Q4H PRN P RN PO Zolpidem Tartrate 5 MG BEDTIME PRN PRN PO Physical Exam General appearance: alert, awake, oriented, no a cute distress Head/eyes: atraumatic, normocephalic, normal con junctiva/sclera ENT: normal pharynx, moist mucosal membranes Neck: full range of motion, non-tender, supple/n o meningismus Cardiovascular: regular rate rhythm Respiratory: clear to auscultation, no distress Abdomen quadrants LLQ normal bowel sounds, LUQ normal roberto l sounds, RLQ normal bowel sounds, RUQ normal bowel sounds Extremities: moves all, no edema, pedal pulses Neuro/CUSTODIAN MANAGER: no motor deficits, no sensory deficit s, CNII-XII grossly intact Skin: dry, intact, no rash Results Findings/data: Laboratory Tests: 05/22 05/22 0535 0535 Chemistry C-Reactive Protein (<10.0 mg/L) 192.0 H Prealbumin (16.0 - 40.0 mg/dL) 13.1 L Hematology WBC (4.5 - 11.0 x10 3/uL) 12.5 H RBC (4.00 - 5.60 x10 6/uL) 3.42 L Hgb (12.5 - 16.9 g/dL) 9.9 L Hct (37.5 - 50.7 %) 31.1 L MCV (81.0 - 99.0 fL) 90.9 MCH (27.0 - 33.0 pg) 28.9 MCHC (33.0 - 37.0 g/dL) 31.8 L RDW (11.5 - 14.5 %) 14.6 H Plt Count (150 - 400 x10 3/uL) 412 H MPV (7.0 - 9.0 fL) 8.6 Neut % (Auto) (56.0 - 77.0 %) 75.3 Lymph % (Auto) (14.0 - 32.0 %) 7.6 L Dolores % (Auto) (4.8 - 9.0 %) 9.8 H Eos % (Auto) (0.3 - 3.7 %) 6.3 H Baso % (Auto) (0.0 - 2.0 %) 0.4 Neut # (Auto) (2.0 - 7.6 x10 3/uL) 9.40 H Lymph # (Auto) (1.0 - 3.8 x10 3/uL) 0.95 L Dolores # (Auto) (0.1 - 0.8 x10 3/uL) 1.23 H Eos # (Auto) (0.0 - 0.2 x10 3/uL) 0.79 H Baso # (Auto) (0.0 - 0.2 x10 3/uL) 0.05 Abs Immat Gran (auto) (0.00 - 0.03 x10 3/uL) 0. 08 H Add Manual Diff NO Immature Gran % (0.0 - 2.0 %) 0.6 Nucleated RBC % (0 - 0 %) 0.0 Nucleated RBCs # (Man) (0.0 - 0.1 x10 3/uL) 0. 00 ESR Westergren (0 - 15 mm/hr) 114 H Microbiology: Date/Time Procedure - Status Source Growth 05/21 1744 Gram Stain - COMP WND OTHER Recent Impressions: RADIOLOGY - XR HIP W/PEL UNI 2+V LT 05/21 1734 Report Impression - Status: SIGNED Entered: 05/21/2020 0910 IMPRESSION: 1. There is no acute osseous fracture or disloca tion. The hip joint spaces are preserved. Impression By: [email or web address] - James Kitchen D.O. Diagnosis, Assessment Plan Free text A P: A/P: Patient is a 74 year old male presenting with: Left thigh pain, lateral femoral cutaneous neura lgia -We will perform a left lateral femoral cutaneou s nerve block to see if this helps with the pain -Lidoderm patch to left thigh daily -Otis 10/325 mg oral every 4 hours as needed fo r pain -manageable Right lower extremity pain, stump pain -Pain medications as outlined above Peripheral neuropathy, phantom limb pain right l ower extremity -Gabapentin 300 mg oral at bedtime -amitriptyline 10 mg oral at bedtime -stable Antalgic/impaired gait -PT/OT -Gait training, improve endurance and strength -Transfer training -PMR following End-stage renal disease on hemodialysis -Nephrology following Subdural hematoma -Monitor mental status with opioids and other se dative medications Depression -monitoring Past medical history: Subdural hematoma, CAD, en d-stage renal disease on HD, hyperlipidemia, septic arthr itis of prosthesis of previous right TKA, depression Past surgical history: Right TKR, right AKA, cor onary stents Social history: Negative for alcohol, tobacco, i llicit drug use Family history: Not relevant All pertinent diagnostics/labs from the last 24 hours and during the course of the admission were reviewed. Plan discussed with the patient and the nurse. A ll questions were answered. Patient will be monitored for deleteriou s side effects associated with opioids and sedative medications. Me dications will be adjusted further clinical course. Risks versus benefits of opioid medications were reviewed to include, but not limited to respiratory depression, accid ental overdose, altered mental status, sudden , constipation which could result in bowel obstruction, seizures, withdrawal, dependency/addiction, risk for falls . Goals: Daily pain control. Case discussed with Dr Lofton whom agrees. 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: Total Prescriptions 28 Total Private Pay 0 Total Prescribers 4 Total Pharmacies 1 05/06/2020 1 05/06/2020 HYDROCODONE-ACETAMIN 10- 325 MG 30.0 7 [facility] SPA [id number] [facility] (1602) 0 42.86 M[place] Ins [place] 04/20/2020 1 12/24/2019 ZOLPIDEM TARTRATE 10 MG TABLET 30.0 30 PE LAT [id number] [facility] (1602) 4 Comm Ins [place] 03/21/2020 1 12/24/2019 ZOLPIDEM TARTRATE 10 MG TABLET 30.0 30 PE LAT [id number] [facility] (1602) 3 [place] Ins [place] 02/20/2020 1 12/24/2019 ZOLPIDEM TARTRATE 10 MG TABLET 30.0 30 PE LAT [id number] [facility] (1602) 2 [place] Ins [place] 01/21/2020 1 12/24/2019 ZOLPIDEM TARTRATE 10 MG TABLET 30.0 30 PE LAT [id number] [facility] (1602) 1 [place] 12/24/2019 1 12/24/2019 ZOLPIDEM TARTRATE 10 MG TABLET 30.0 30 PE LAT [id number] [facility] (1602) 0 [place] 11/25/2019 1 07/07/2019 ZOLPIDEM TARTRATE 10 MG TABLET 30.0 30 PE LAT [id number] [facility] (1144) 5 Comm Ins [place] [id number] ([id number]) [address] [place] [id number] at 2715 Electronically Signed by Herman Lofton MD on 0 05/23/20 at 1623 RPT #:[id number] END OF REPORT 2020-05-21 23:29:00-00:00 [facility] ([facility]) Clinical Note REPORT#:[id number] REPORT STATUS: Signed DATE:05/21/20 TIME: 2328 PATIENT: DARIEN GROSSMAN UNIT #: [id number] ROOM/BED: [place] [address] : 45 AGE: 74 SEX: M ATTEND: Rosa Curtis MD ADM AUTHOR: Danny Keith MD * ALL edits or amendments must be made on the C-Note/computer document * Clinical Note Note: 74-year-old male Problem List/A P: 1. Fall 2. Subdural hematoma 3. TBI (traumatic brain injury) 4. History of right above knee amputation (Onse t: 04/03/20) 5. ESRD on dialysis 6. History of coronary artery disease 7. History of coronary angioplasty with inserti on of stent 8. HLD (hyperlipidemia) 9. Anemia of chronic disease 10. Frequent falls 11. Hypoalbuminemia 12. Leukocytosis 13. Limb pain 14. Impaired functional mobility, balance, gait , and endurance Plan We will continue with telemetry, BP control, gly cemic control, pain control, electrolyte control, DVT/GI prophylaxis, repeat labs. PT/OT/ST. Wound care. Electronically Signed by Danny Keith MD 05/24/20 at 1407 RPT #:[id number] END OF REPORT 2020-05-21 22:41:00-00:00 [facility] ([facility]) Internal Medicine Prog. Note REPORT#:[id number] REPORT STATUS: Signed DATE:05/21/20 TIME: 2240 PATIENT: DARIEN GROSSMAN UNIT #: [id number] ROOM/BED: [place] [address] : 45 AGE: 74 SEX: M ATTEND: Rosa Curtis MD ADM AUTHOR: Javier Meek NP * ALL edits or amendments must be made on the C-Note/[employer] document * Subjective Chief Complaint: Right AKA Impaired functional mobility Recurrent falls Review of Systems Constitutional: Denies: chills, fever. ENT: Denies: earache, nasal congestion, sore throat. Respiratory: Denies: hemoptysis, parox no cturnal dyspnea, pleurisy, pleuritic pain, pneumonia , SOB, wheezing. Cardiovascular: Denies: chest pain, palpitations. GI: Denies: abdominal pain, nausea, vomiting. : Denies: flank pain, frequency, hematuria. Musculoskeletal: Denies: extremity pain, extr emity swelling, joint pain, lumbar pain, neck pain. Neuro: Denies: change in LOC, confusion, dizziness, foc al weakness, gait problem, headache, lightheaded, numbness, seizure, slurre d speech, spinning sensation, syncope, unable to speak, vision change. Psych: Denies: agitation, anxiety, auditory hallucinati on, change in mental status, confusion, delusional, depre ssion, homicidal ideation, hostile, insomnia, stress , suicidal ideation, visual hallucination. Objective General VS/I O: Laboratory Tests 05/21 05/20 0550 0535 Chemistry Sodium (134 - 147 mEq/L) 137 134 Potassium (3.4 - 5.0 mEq/L) 3.6 3.8 Chloride (100 - 108 mEq/L) 97 L 96 L Carbon Dioxide (21 - 33 mEq/l) 32 30 Anion Gap (0 - 20) 11 12 BUN (7 - 18 mg/dL) 31 H 44 H Creatinine (0.6 - 1.3 mg/dL) 3.4 H 4.2 H Glomerular Filtr Rate (70 - 80) 17.8 L 13.9 L Glucose (70 - 110 mg/dL) 84 88 Calcium (8.0 - 10.5 mg/dL) 9.1 9.2 Total Bilirubin (0.0 - 1.0 mg/dL) 0.60 AST (15 - 37 IUnit/L) 14 L ALT (30 - 65 IUnit/L) 9 L Total Alk Phosphatase (20 - 125 IUnit/L) 104 Total Protein (6.4 - 8.2 g/dL) 6.9 Albumin (3.4 - 5.0 g/dL) 3.20 L Laboratory Tests 05/21 05/20 0550 0535 Hematology WBC (4.5 - 11.0 x10 3/uL) 12.3 H 12.9 H RBC (4.00 - 5.60 x10 6/uL) 3.09 L 3.11 L Hgb (12.5 - 16.9 g/dL) 8.9 L 9.0 L Hct (37.5 - 50.7 %) 28.3 L 28.2 L MCV (81.0 - 99.0 fL) 91.6 90.7 MCH (27.0 - 33.0 pg) 28.8 28.9 MCHC (33.0 - 37.0 g/dL) 31.4 L 31.9 L RDW (11.5 - 14.5 %) 14.4 14.5 Plt Count (150 - 400 x10 3/uL) 373 316 MPV (7.0 - 9.0 fL) 8.8 8.4 Neut % (Auto) (56.0 - 77.0 %) 74.4 75.0 Lymph % (Auto) (14.0 - 32.0 %) 9.4 L 7.0 L Dolores % (Auto) (4.8 - 9.0 %) 10.2 H 10.3 H Eos % (Auto) (0.3 - 3.7 %) 5.2 H 6.9 H Baso % (Auto) (0.0 - 2.0 %) 0.3 0.2 Neut # (Auto) (2.0 - 7.6 x10 3/uL) 9.13 H 9.64 H Lymph # (Auto) (1.0 - 3.8 x10 3/uL) 1.16 0.90 L Dolores # (Auto) (0.1 - 0.8 x10 3/uL) 1.25 H 1.32 H Eos # (Auto) (0.0 - 0.2 x10 3/uL) 0.64 H 0.89 H Baso # (Auto) (0.0 - 0.2 x10 3/uL) 0.04 0.03 Abs Immat Gran (auto) (0.00 - 0.03 x10 3/uL) 0. 06 H 0.08 H Add Manual Diff NO NO Immature Gran % (0.0 - 2.0 %) 0.5 0.6 Nucleated RBC % (0 - 0 %) 0.0 0.0 Nucleated RBCs # (Man) (0.0 - 0.1 x10 3/uL) 0.0 0 0.00 Microbiology Date/Time Procedure - Status Source Growth 05/21 1744 Gram Stain - COMP WND OTHER 05/20 529 MRSA DNA Surveillance Screen - COMP NASAL Chemistry: 05/21 549 Chemistry Sodium (134 - 147 mEq/L) 137 Potassium (3.4 - 5.0 mEq/L) 3.6 Chloride (100 - 108 mEq/L) 97 L Carbon Dioxide (21 - 33 mEq/l) 32 BUN (7 - 18 mg/dL) 31 H Creatinine (0.6 - 1.3 mg/dL) 3.4 H Glucose (70 - 110 mg/dL) 84 Calcium (8.0 - 10.5 mg/dL) 9.1 Microbiology: 05/21 1744 WND OTHER: Gram Stain - COMP 05/21 544 LEG: Wound Culture - RECD 05/20 529 NASAL: MRSA DNA Surveillance Screen - COMP Vital Signs: Date Time Temp Pulse Resp B/P B/P Pulse O2 O2 F low FiO2 Mean Ox Delivery Rate 05/21 1906 37.0 67 18 135/69 91.1 96 Room air 05/21 1643 37.3 69 24 132/66 88.3 93 05/21 0833 36.6 70 20 150/66 93.6 91 05/21 0541 36.6 60 16 127/64 84.9 90 05/21 0700 05/20 2300 05/20 1500 Intake Total 120 Output Total 1570 Balance -1450 Intake, Oral 120 Number Voids 1 Output, 1570 Hemodialysis Current Medications Sig/Tatum Start time Last Medication Dose Route Stop Time Status Admin Collagenase 1 APPLIC DAILY 05/22 899 AC TOPICAL 06/21 858 Cefepime HCl 1 GM Q12H 05/21 2099 AC 05/21 Sodium Chloride 10 ML IV 06/04 2058 2144 Vancomycin HCl 1,500 MG ONCE ONE 05/21 1500 DC 05/21 Sodium Chloride 500 ML IV 05/21 2100 1817 Miscellaneous 1 EACH ASDIR 05/21 1145 CKD Information IV 06/20 1144 Vancomycin HCl 1,000 MG ONCE ONE 05/21 1145 CAN Sodium Chloride 250 ML IV 05/21 1244 Lidocaine 1 PATCH DAILY 05/21 899 AC 05/21 TOPICAL 06/20 0859 1017 Amitriptyline HCl 10 MG BEDTIME 05/20 2100 AC 0 05/21 PO 06/19 205 2141 Triamcinolone 40 MG PROCEDURE 05/20 194 CKD Acetonide IM 06/19 194 Aspirin 81 MG DAILY 05/20 899 AC 05/21 PO 06/19 1300 1016 Clopidogrel Bisulfate 75 MG DAILY 05/20 899 AC 05/21 PO 06/19 1300 1016 Furosemide 40 MG DAILY 05/20 899 AC 05/21 PO 06/19 1300 1016 Polyethylene Glycol 17 GM DAILY 05/20 899 AC 0 05/21 PO 06/19 1300 1016 Senna 1 TAB DAILY 05/20 899 CKD 05/21 PO 06/19 1300 1015 Venlafaxine HCl 75 MG DAILY 05/20 899 AC 05/21 PO 06/19 1300 1016 Acetaminophen 650 MG Q6H PRN PRN 05/20 0845 AC PO 06/19 0844 Hydralazine HCl 10 MG Q6H PRN PRN 05/20 0845 AC PO 06/19 0844 Ondansetron HCl 4 MG TID PRN PRN 05/20 0845 AC SL 06/19 0844 Heparin Sodium 5,000 UNIT Q8H 05/19 2200 AC SUBQ 06/19 1300 2142 Buspirone HCl 10 MG BEDTIME 05/19 2100 AC 05/21 PO 06/19 1300 2142 Epoetin Donny-epbx 4,000 UNIT TuThSa@2100 05/19 2100 AC 05/21 SUBQ 06/19 1300 2143 Gabapentin 300 MG BEDTIME 05/19 2100 AC 05/21 PO 06/19 1300 2142 Levetiracetam 500 MG Q12HR 05/19 2100 DC 05/20 PO 05/21 0600 2233 Metoprolol Tartrate 25 MG BID 05/19 2100 AC PO 06/19 1300 2142 Trazodone HCl 150 MG BEDTIME 05/19 2100 AC 05/12 0 PO 06/19 1300 2141 Hydrocodone Bitart/ 1 TAB Q4H PRN PRN 05/19 201 5 AC 05/20 Acetaminophen PO 07/20 1300 2244 Zolpidem Tartrate 5 MG BEDTIME PRN PRN 05/19 2 000 AC 05/21 PO 06/19 1300 2224 Recent Impressions-Last 72 Hrs RADIOLOGY - XR HIP W/PEL UNI 2+V LT 05/21 1735 Report Impression - Status: SIGNED Entered: 05/21/2020 1838 IMPRESSION: 1. There is no acute osseous fracture or disloca tion. The hip joint spaces are preserved. Impression By: [email or web address] - James Kitchen D.O. Vital Signs Date Temp Pulse Resp B/P B/P Mean Pulse Ox FiO2 05/21 36.6-37.3 60-70 16-24 127-150/64-69 84.9- 93.6 90-96 Last Documented: Result Date Time Pulse Ox 96 05/21 190 B/P 135/69 05/21 1906 B/P Mean 91.1 05/21 190 O2 Delivery Room air 05/21 1905 Temp 37.0 05/21 190 Pulse 67 05/21 190 Resp 18 05/21 1905 24 hour I O ending at 0700: 05/21 0700 05/20 1900 Intake Total 120 Output Total 1570 Balance -1450 Intake, Oral 120 Number Voids 1 Output, 1570 Hemodialysis PATIENT WEIGHT: Weight (lb): 171 Weight (oz): 12.16 Weight (kg): 77.909 Physical Exam General appearance: alert, awake, oriented Neck: no JVD Cardiovascular: regular rate rhythm Respiratory: aerating well, clear to auscultatio n Abdomen: non-tender, normal bowel sounds, soft Extremities: Extremities: RT AKA Neuro/CUSTODIAN MANAGER: alert, oriented x 3 Skin: dry, normal temperature Psychiatry: normal judgement/insight Diagnosis, Assessment Plan Free Text DxA P Notes Free text DxA P notes: Assessment: 1.Mechanical fall 2.Traumatic brain injury with subdural hematoma 3. Right AKA pulmonary 2020 4. IMpaired mobility/Impaired gait 5. History of depression 6. Generalized weakness 7. Phantom pain 8. End-stage renal disease on hemodialysis 3 day s a week 9. Anemia 10. History of coronary artery disease, hyperten willy, and hyperlipidemia 05/21/20 Patient's doing well Sitting in a wheelchair Participating in therapy Family visiting at the bedside Plan of care: -Continue with comprehensive inpatient rehabilit [facility] rehab team -Pain control -Fall precaution -DVT prophylaxis subcu heparin -GI prophylaxis patient currently on Protonix -Pain control as pain management -Seizure precaution patient on Keppra -Continues present medications -Monitor labs -Plan of care discussed with the patient, galina marcano nurse, and Dr. Cavazos. Electronically Signed by Javier Meek MONOGRAM MAKER on 0 05/23/20 at 0818 RPT #:[id number] END OF REPORT 2020-05-21 22:41:00-00:00 [facility] Internal Medicine Prog. Note REPORT#:[id number] REPORT STATUS: Signed DATE:05/21/20 TIME: 2240 PATIENT: DARIEN GROSSMAN UNIT #: [id number] ROOM/BED: [place] [address] : 45 AGE: 74 SEX: M ATTEND: Rosa Curtis MD ADM AUTHOR: Javier Meek MONOGRAM MAKER * ALL edits or amendments must be made on the C-Note/computer document * Javier Meek 05/21/20 2241: Subjective Chief Complaint: Right AKA Impaired functional mobility Recurrent falls Review of Systems Constitutional: Denies: chills, fever. ENT: Denies: earache, nasal congestion, sore throat. Respiratory: Denies: hemoptysis, parox no cturnal dyspnea, pleurisy, pleuritic pain, pneumonia , SOB, wheezing. Cardiovascular: Denies: chest pain, palpitations. GI: Denies: abdominal pain, nausea, vomiting. : Denies: flank pain, frequency, hematuria. Musculoskeletal: Denies: extremity pain, extr emity swelling, joint pain, lumbar pain, neck pain. Neuro: Denies: change in LOC, confusion, dizziness, foc al weakness, gait problem, headache, lightheaded, numbness, seizure, slurre d speech, spinning sensation, syncope, unable to speak, vision change. Psych: Denies: agitation, anxiety, auditory hallucinati on, change in mental status, confusion, delusional, depre ssion, homicidal ideation, hostile, insomnia, stress , suicidal ideation, visual hallucination. Objective General VS/I O: Laboratory Tests 05/21 05/20 0550 0535 Chemistry Sodium (134 - 147 mEq/L) 137 134 Potassium (3.4 - 5.0 mEq/L) 3.6 3.8 Chloride (100 - 108 mEq/L) 97 L 96 L Carbon Dioxide (21 - 33 mEq/l) 32 30 Anion Gap (0 - 20) 11 12 BUN (7 - 18 mg/dL) 31 H 44 H Creatinine (0.6 - 1.3 mg/dL) 3.4 H 4.2 H Glomerular Filtr Rate (70 - 80) 17.8 L 13.9 L Glucose (70 - 110 mg/dL) 84 88 Calcium (8.0 - 10.5 mg/dL) 9.1 9.2 Total Bilirubin (0.0 - 1.0 mg/dL) 0.60 AST (15 - 37 IUnit/L) 14 L ALT (30 - 65 IUnit/L) 9 L Total Alk Phosphatase (20 - 125 IUnit/L) 104 Total Protein (6.4 - 8.2 g/dL) 6.9 Albumin (3.4 - 5.0 g/dL) 3.20 L Laboratory Tests 05/21 05/20 0550 0535 Hematology WBC (4.5 - 11.0 x10 3/uL) 12.3 H 12.9 H RBC (4.00 - 5.60 x10 6/uL) 3.09 L 3.11 L Hgb (12.5 - 16.9 g/dL) 8.9 L 9.0 L Hct (37.5 - 50.7 %) 28.3 L 28.2 L MCV (81.0 - 99.0 fL) 91.6 90.7 MCH (27.0 - 33.0 pg) 28.8 28.9 MCHC (33.0 - 37.0 g/dL) 31.4 L 31.9 L RDW (11.5 - 14.5 %) 14.4 14.5 Plt Count (150 - 400 x10 3/uL) 373 316 MPV (7.0 - 9.0 fL) 8.8 8.4 Neut % (Auto) (56.0 - 77.0 %) 74.4 75.0 Lymph % (Auto) (14.0 - 32.0 %) 9.4 L 7.0 L Dolores % (Auto) (4.8 - 9.0 %) 10.2 H 10.3 H Eos % (Auto) (0.3 - 3.7 %) 5.2 H 6.9 H Baso % (Auto) (0.0 - 2.0 %) 0.3 0.2 Neut # (Auto) (2.0 - 7.6 x10 3/uL) 9.13 H 9.64 H Lymph # (Auto) (1.0 - 3.8 x10 3/uL) 1.16 0.90 L Dolores # (Auto) (0.1 - 0.8 x10 3/uL) 1.25 H 1.32 H Eos # (Auto) (0.0 - 0.2 x10 3/uL) 0.64 H 0.89 H Baso # (Auto) (0.0 - 0.2 x10 3/uL) 0.04 0.03 Abs Immat Gran (auto) (0.00 - 0.03 x10 3/uL) 0. 06 H 0.08 H Add Manual Diff NO NO Immature Gran % (0.0 - 2.0 %) 0.5 0.6 Nucleated RBC % (0 - 0 %) 0.0 0.0 Nucleated RBCs # (Man) (0.0 - 0.1 x10 3/uL) 0.0 0 0.00 Microbiology Date/Time Procedure - Status Source Growth 05/21 174 Gram Stain - COMP WND OTHER 05/20 0530 MRSA DNA Surveillance Screen - COMP NASAL Chemistry: 05/21 0550 Chemistry Sodium (134 - 147 mEq/L) 137 Potassium (3.4 - 5.0 mEq/L) 3.6 Chloride (100 - 108 mEq/L) 97 L Carbon Dioxide (21 - 33 mEq/l) 32 BUN (7 - 18 mg/dL) 31 H Creatinine (0.6 - 1.3 mg/dL) 3.4 H Glucose (70 - 110 mg/dL) 84 Calcium (8.0 - 10.5 mg/dL) 9.1 Microbiology: 05/21 1745 WND OTHER: Gram Stain - COMP 05/21 544 LEG: Wound Culture - RECD 05/20 529 NASAL: MRSA DNA Surveillance Screen - COMP Vital Signs: Date Time Temp Pulse Resp B/P B/P Pulse O2 O2 F low FiO2 Mean Ox Delivery Rate 05/21 1906 37.0 67 18 135/69 91.1 96 Room air 05/21 1643 37.3 69 24 132/66 88.3 93 05/21 0833 36.6 70 20 150/66 93.6 91 05/21 0541 36.6 60 16 127/64 84.9 90 05/21 0700 05/20 2300 05/20 1500 Intake Total 120 Output Total 1570 Balance -1450 Intake, Oral 120 Number Voids 1 Output, 1570 Hemodialysis Current Medications Sig/Tatum Start time Last Medication Dose Route Stop Time Status Admin Collagenase 1 APPLIC DAILY 05/22 899 AC TOPICAL 06/21 0859 Cefepime HCl 1 GM Q12H 05/21 2100 AC 05/21 Sodium Chloride 10 ML IV 06/04 2058 2144 Vancomycin HCl 1,500 MG ONCE ONE 05/21 1500 DC 05/21 Sodium Chloride 500 ML IV 05/21 2100 1817 Miscellaneous 1 EACH ASDIR 05/21 1145 CKD Information IV 06/20 1144 Vancomycin HCl 1,000 MG ONCE ONE 05/21 1145 CAN Sodium Chloride 250 ML IV 05/21 1244 Lidocaine 1 PATCH DAILY 05/21 899 AC 05/21 TOPICAL 06/20 0859 1017 Amitriptyline HCl 10 MG BEDTIME 05/20 2100 AC 0 05/21 PO 06/19 205 2141 Triamcinolone 40 MG PROCEDURE 05/20 194 CKD Acetonide IM 06/19 194 Aspirin 81 MG DAILY 05/20 899 AC 05/21 PO 06/19 1300 1016 Clopidogrel Bisulfate 75 MG DAILY 05/20 899 AC 05/21 PO 06/19 1300 1016 Furosemide 40 MG DAILY 05/20 899 AC 05/21 PO 06/19 1300 1016 Polyethylene Glycol 17 GM DAILY 05/20 899 AC 05/21 PO 06/19 1300 1016 Senna 1 TAB DAILY 05/20 899 CKD 05/21 PO 06/19 1300 1015 Venlafaxine HCl 75 MG DAILY 05/20 899 AC 05/21 PO 06/19 1300 1016 Acetaminophen 650 MG Q6H PRN PRN 05/20 0845 AC PO 06/19 0844 Hydralazine HCl 10 MG Q6H PRN PRN 05/20 0845 AC PO 06/19 0844 Ondansetron HCl 4 MG TID PRN PRN 05/20 0845 AC SL 06/19 0844 Heparin Sodium 5,000 UNIT Q8H 05/19 2200 AC SUBQ 06/19 1300 2142 Buspirone HCl 10 MG BEDTIME 05/19 2100 AC 05/21 PO 06/19 1300 2142 Epoetin Donny-epbx 4,000 UNIT TuThSa@2100 05/19 2100 AC 05/21 SUBQ 06/19 1300 2143 Gabapentin 300 MG BEDTIME 05/19 2100 AC 05/21 PO 06/19 1300 2142 Levetiracetam 500 MG Q12HR 05/19 2100 DC 05/20 PO 05/21 0600 2233 Metoprolol Tartrate 25 MG BID 05/19 2100 AC PO 06/19 1300 2142 Trazodone HCl 150 MG BEDTIME 05/19 2100 AC 05/12 0 PO 06/19 1300 2141 Hydrocodone Bitart/ 1 TAB Q4H PRN PRN 05/19 201 5 AC 05/20 Acetaminophen PO 07/20 1300 2244 Zolpidem Tartrate 5 MG BEDTIME PRN PRN 05/19 20 00 AC 05/21 PO 06/19 1300 2224 Recent Impressions-Last 72 Hrs RADIOLOGY - XR HIP W/PEL UNI 2+V LT 05/21 1735 Report Impression - Status: SIGNED Entered: 05/21/2020 1838 IMPRESSION: 1. There is no acute osseous fracture or disloca tion. The hip joint spaces are preserved. Impression By: [email or web address] - James Kitchen D.O. Vital Signs Date Temp Pulse Resp B/P B/P Mean Pulse Ox FiO 2 05/21 36.6-37.3 60-70 16-24 127-150/64-69 84.9- 93.6 90-96 Last Documented: Result Date Time Pulse Ox 96 05/21 1905 B/P 135/69 05/21 190 B/P Mean 91.1 05/21 1905 O2 Delivery Room air 05/21 1905 Temp 37.0 05/21 1905 Pulse 67 05/21 1905 Resp 18 05/21 1905 24 hour I O ending at 0700: 05/21 0700 05/20 1900 Intake Total 120 Output Total 1570 Balance -1450 Intake, Oral 120 Number Voids 1 Output, 1570 Hemodialysis PATIENT WEIGHT: Weight (lb): 171 Weight (oz): 12.16 Weight (kg): 77.909 Physical Exam General appearance: alert, awake, oriented Neck: no JVD Cardiovascular: regular rate rhythm Respiratory: aerating well, clear to auscultatio n Abdomen: non-tender, normal bowel sounds, soft Extremities: Extremities: RT AKA Neuro/CUSTODIAN MANAGER: alert, oriented x 3 Skin: dry, normal temperature Psychiatry: normal judgement/insight Diagnosis, Assessment Plan Free Text DxA P Notes Free text DxA P notes: Assessment: 1.Mechanical fall 2.Traumatic brain injury with subdural hematoma 3. Right AKA pulmonary 2020 4. IMpaired mobility/Impaired gait 5. History of depression 6. Generalized weakness 7. Phantom pain 8. End-stage renal disease on hemodialysis 3 day s a week 9. Anemia 10. History of coronary artery disease, hyperten willy, and hyperlipidemia 05/21/20 Patient's doing well Sitting in a wheelchair Participating in therapy Family visiting at the bedside Plan of care: -Continue with comprehensive inpatient rehabilit [facility] rehab team -Pain control -Fall precaution -DVT prophylaxis subcu heparin -GI prophylaxis patient currently on Protonix -Pain control as pain management -Seizure precaution patient on Keppra -Continues present medications -Monitor labs -Plan of care discussed with the patient, galina marcano nurse, and Dr. Cavazos. Danny Cavazos 05/24/20 7313: Attestations Physician Attestation Agree w/findings plan: I agree with the findings and plan as documented by JOSE Meek. Plan of care coordinated with JOSE Meek. Pertinent labs, Imaging, and store sales consultant evaluations reviewed. 74-year-old male was admitted to inpatient rehab for comprehensive rehabilitation. He is doing well today and is si tting in a wheelchair. He is participating in therapy. His family is visiting and is at the bedside. We will continue with comprehensive inpatient rehab ilitation was per rehab team, pain control, fall precautions, DVT prophylaxis with subcu heparin, GI prophylaxis with Protonix, p ain control as pain management, seizure precautions with Keppra, and present medications. We will co tavia to monitor his labs. Electronically Signed by Javier Meek NP on 0 05/23/20 at 0818 RPT #:[id number] END OF REPORT 2020-05-21 22:41:00-00:00 HCACL [facility] Internal Medicine Prog. Note REPORT#:[id number] REPORT STATUS: Signed DATE:05/21/20 TIME: 2240 PATIENT: DARIEN GROSSMAN UNIT #: [id number] ROOM/BED: [place] [address] : 45 AGE: 74 SEX: M ATTEND: Rosa Curtis MD ADM AUTHOR: Javier Meek NP * ALL edits or amendments must be made on the C-Note/computer document * Javier Meek 05/21/20 2241: Subjective Chief Complaint: Right AKA Impaired functional mobility Recurrent falls Review of Systems Constitutional: Denies: chills, fever. ENT: Denies: earache, nasal congestion, sore throat. Respiratory: Denies: hemoptysis, parox no cturnal dyspnea, pleurisy, pleuritic pain, pneumonia , SOB, wheezing. Cardiovascular: Denies: chest pain, palpitations. GI: Denies: abdominal pain, nausea, vomiting. : Denies: flank pain, frequency, hematuria. Musculoskeletal: Denies: extremity pain, extr emity swelling, joint pain, lumbar pain, neck pain. Neuro: Denies: change in LOC, confusion, dizziness, foc al weakness, gait problem, headache, lightheaded, numbness, seizure, slurre d speech, spinning sensation, syncope, unable to speak, vision change. Psych: Denies: agitation, anxiety, auditory hallucinati on, change in mental status, confusion, delusional, depre ssion, homicidal ideation, hostile, insomnia, stress , suicidal ideation, visual hallucination. Objective General VS/I O: Laboratory Tests 05/21 05/20 0550 0535 Chemistry Sodium (134 - 147 mEq/L) 137 134 Potassium (3.4 - 5.0 mEq/L) 3.6 3.8 Chloride (100 - 108 mEq/L) 97 L 96 L Carbon Dioxide (21 - 33 mEq/l) 32 30 Anion Gap (0 - 20) 11 12 BUN (7 - 18 mg/dL) 31 H 44 H Creatinine (0.6 - 1.3 mg/dL) 3.4 H 4.2 H Glomerular Filtr Rate (70 - 80) 17.8 L 13.9 L Glucose (70 - 110 mg/dL) 84 88 Calcium (8.0 - 10.5 mg/dL) 9.1 9.2 Total Bilirubin (0.0 - 1.0 mg/dL) 0.60 AST (15 - 37 IUnit/L) 14 L ALT (30 - 65 IUnit/L) 9 L Total Alk Phosphatase (20 - 125 IUnit/L) 104 Total Protein (6.4 - 8.2 g/dL) 6.9 Albumin (3.4 - 5.0 g/dL) 3.20 L Laboratory Tests 05/21 05/20 0550 0535 Hematology WBC (4.5 - 11.0 x10 3/uL) 12.3 H 12.9 H RBC (4.00 - 5.60 x10 6/uL) 3.09 L 3.11 L Hgb (12.5 - 16.9 g/dL) 8.9 L 9.0 L Hct (37.5 - 50.7 %) 28.3 L 28.2 L MCV (81.0 - 99.0 fL) 91.6 90.7 MCH (27.0 - 33.0 pg) 28.8 28.9 MCHC (33.0 - 37.0 g/dL) 31.4 L 31.9 L RDW (11.5 - 14.5 %) 14.4 14.5 Plt Count (150 - 400 x10 3/uL) 373 316 MPV (7.0 - 9.0 fL) 8.8 8.4 Neut % (Auto) (56.0 - 77.0 %) 74.4 75.0 Lymph % (Auto) (14.0 - 32.0 %) 9.4 L 7.0 L Dolores % (Auto) (4.8 - 9.0 %) 10.2 H 10.3 H Eos % (Auto) (0.3 - 3.7 %) 5.2 H 6.9 H Baso % (Auto) (0.0 - 2.0 %) 0.3 0.2 Neut # (Auto) (2.0 - 7.6 x10 3/uL) 9.13 H 9.64 H Lymph # (Auto) (1.0 - 3.8 x10 3/uL) 1.16 0.90 L Dolores # (Auto) (0.1 - 0.8 x10 3/uL) 1.25 H 1.32 H Eos # (Auto) (0.0 - 0.2 x10 3/uL) 0.64 H 0.89 H Baso # (Auto) (0.0 - 0.2 x10 3/uL) 0.04 0.03 Abs Immat Gran (auto) (0.00 - 0.03 x10 3/uL) 0. 06 H 0.08 H Add Manual Diff NO NO Immature Gran % (0.0 - 2.0 %) 0.5 0.6 Nucleated RBC % (0 - 0 %) 0.0 0.0 Nucleated RBCs # (Man) (0.0 - 0.1 x10 3/uL) 0.0 0 0.00 Microbiology Date/Time Procedure - Status Source Growth 05/21 1744 Gram Stain - COMP WND OTHER 05/20 529 MRSA DNA Surveillance Screen - COMP NASAL Chemistry: 05/21 549 Chemistry Sodium (134 - 147 mEq/L) 137 Potassium (3.4 - 5.0 mEq/L) 3.6 Chloride (100 - 108 mEq/L) 97 L Carbon Dioxide (21 - 33 mEq/l) 32 BUN (7 - 18 mg/dL) 31 H Creatinine (0.6 - 1.3 mg/dL) 3.4 H Glucose (70 - 110 mg/dL) 84 Calcium (8.0 - 10.5 mg/dL) 9.1 Microbiology: 05/21 1744 WND OTHER: Gram Stain - COMP 05/21 544 LEG: Wound Culture - RECD 05/20 529 NASAL: MRSA DNA Surveillance Screen - COMP Vital Signs: Date Time Temp Pulse Resp B/P B/P Pulse O2 O2 F low FiO2 Mean Ox Delivery Rate 05/21 1905 37.0 67 18 135/69 91.1 96 Room air 04/10 1643 37.3 69 24 132/66 88.3 93 05/21 0833 36.6 70 20 150/66 93.6 91 05/21 0541 36.6 60 16 127/64 84.9 90 05/21 0700 05/20 2300 05/20 1500 Intake Total 120 Output Total 1570 Balance -1450 Intake, Oral 120 Number Voids 1 Output, 1570 Hemodialysis Current Medications Sig/Tatum Start time Last Medication Dose Route Stop Time Status Admin Collagenase 1 APPLIC DAILY 05/22 899 AC TOPICAL 06/21 0859 Cefepime HCl 1 GM Q12H 05/21 2100 AC 05/21 Sodium Chloride 10 ML IV 06/04 2058 2144 Vancomycin HCl 1,500 MG ONCE ONE 05/21 1500 DC 05/21 Sodium Chloride 500 ML IV 05/21 2100 1817 Miscellaneous 1 EACH ASDIR 05/21 1145 CKD Information IV 06/20 1144 Vancomycin HCl 1,000 MG ONCE ONE 05/21 1145 CAN Sodium Chloride 250 ML IV 05/21 1244 Lidocaine 1 PATCH DAILY 05/21 899 AC 05/21 TOPICAL 06/20 0859 1017 Amitriptyline HCl 10 MG BEDTIME 05/20 2099 AC 0 05/21 PO 06/19 2058 2141 Triamcinolone 40 MG PROCEDURE 05/20 194 CKD Acetonide IM 06/19 194 Aspirin 81 MG DAILY 05/20 899 AC 05/21 PO 06/19 1300 1016 Clopidogrel Bisulfate 75 MG DAILY 05/20 899 AC 05/21 PO 06/19 1300 1016 Furosemide 40 MG DAILY 05/20 899 AC 05/21 PO 06/19 1300 1016 Polyethylene Glycol 17 GM DAILY 05/20 899 AC 0 05/21 PO 06/19 1300 1016 Senna 1 TAB DAILY 05/20 899 CKD 05/21 PO 06/19 1300 1015 Venlafaxine HCl 75 MG DAILY 05/20 899 AC 05/21 PO 06/19 1300 1016 Acetaminophen 650 MG Q6H PRN PRN 05/20 844 AC PO 06/19 0844 Hydralazine HCl 10 MG Q6H PRN PRN 05/20 844 AC PO 06/19 0844 Ondansetron HCl 4 MG TID PRN PRN 05/21 0745 AC SL 06/19 0844 Heparin Sodium 5,000 UNIT Q8H 05/19 2200 AC SUBQ 06/19 1300 2142 Buspirone HCl 10 MG BEDTIME 05/19 2099 AC 05/21 PO 06/19 1300 2142 Epoetin Donny-epbx 4,000 UNIT TuThSa@2100 05/19 2100 AC 05/21 SUBQ 06/19 1300 2143 Gabapentin 300 MG BEDTIME 05/19 2099 AC 05/21 PO 06/19 1300 2142 Levetiracetam 500 MG Q12HR 05/19 2099 DC 05/20 PO 05/21 0600 223 Metoprolol Tartrate 25 MG BID 05/19 2099 AC PO 06/19 1300 214 Trazodone HCl 150 MG BEDTIME 05/19 2099 AC 05/12 0 PO 06/19 1300 2141 Hydrocodone Bitart/ 1 TAB Q4H PRN PRN 05/19 201 5 AC 05/20 Acetaminophen PO 07/20 1300 2244 Zolpidem Tartrate 5 MG BEDTIME PRN PRN 05/19 20 00 AC 05/21 PO 06/19 1300 2224 Recent Impressions-Last 72 Hrs RADIOLOGY - XR HIP W/PEL UNI 2+V LT 05/21 1735 Report Impression - Status: SIGNED Entered: 05/21/2020 1838 IMPRESSION: 1. There is no acute osseous fracture or disloca tion. The hip joint spaces are preserved. Impression By: [email or web address] - James Kitchen D.O. Vital Signs Date Temp Pulse Resp B/P B/P Mean Pulse Ox FiO2 05/21 36.6-37.3 60-70 16-24 127-150/64-69 84.9- 93.6 90-96 Last Documented: Result Date Time Pulse Ox 96 05/21 1905 B/P 135/69 05/21 1905 B/P Mean 91.1 05/21 1905 O2 Delivery Room air 05/21 1905 Temp 37.0 05/21 1905 Pulse 67 05/21 1905 Resp 18 05/21 1905 24 hour I O ending at 0700: 05/21 0700 05/20 1900 Intake Total 120 Output Total 1570 Balance -1450 Intake, Oral 120 Number Voids 1 Output, 1570 Hemodialysis PATIENT WEIGHT: Weight (lb): 171 Weight (oz): 12.16 Weight (kg): 77.909 Physical Exam General appearance: alert, awake, oriented Neck: no JVD Cardiovascular: regular rate rhythm Respiratory: aerating well, clear to auscultatio n Abdomen: non-tender, normal bowel sounds, soft Extremities: Extremities: RT AKA Neuro/CUSTODIAN MANAGER: alert, oriented x 3 Skin: dry, normal temperature Psychiatry: normal judgement/insight Diagnosis, Assessment Plan Free Text DxA P Notes Free text DxA P notes: Assessment: 1.Mechanical fall 2.Traumatic brain injury with subdural hematoma 3. Right AKA pulmonary 2020 4. IMpaired mobility/Impaired gait 5. History of depression 6. Generalized weakness 7. Phantom pain 8. End-stage renal disease on hemodialysis 3 day s a week 9. Anemia 10. History of coronary artery disease, hyperten willy, and hyperlipidemia 05/21/20 Patient's doing well Sitting in a wheelchair Participating in therapy Family visiting at the bedside Plan of care: -Continue with comprehensive inpatient rehabilit [facility] rehab team -Pain control -Fall precaution -DVT prophylaxis subcu heparin -GI prophylaxis patient currently on Protonix -Pain control as pain management -Seizure precaution patient on Keppra -Continues present medications -Monitor labs -Plan of care discussed with the patient, galina palma'lennox nurse, and Dr. Cavazos. Danny Cavazos 05/24/20 6848: Attestations Physician Attestation Agree w/findings plan: I agree with the findings and plan as documented by JOSE Meek. Plan of care coordinated with JOSE Meek. Pertinent labs, Imaging, and store sales consultant evaluations reviewed. 74-year-old male was admitted to inpatient rehab for comprehensive rehabilitation. He is doing well today and is si tting in a wheelchair. He is participating in therapy. His family is visiting and is at the bedside. We will continue with comprehensive inpatient rehab ilitation was per rehab team, pain control, fall precautions, DVT prophylaxis with subcu heparin, GI prophylaxis with Protonix, p ain control as pain management, seizure precautions with Keppra, and present medications. We will co ntinue to monitor his labs. Electronically Signed by Javier Meek NP on 0 05/23/20 at 0818 Electronically Signed by Danny Keith MD 05/25/20 at 0100 RPT #:[id number] END OF REPORT 2020-05-21 20:34:00-00:00 [id number] [place], [place] [address] PATIENT NAME: DARIEN GROSSMAN ADMIT DATE: 05/19/20 ACCOUNT NO: [id number] ROOM NO: G.508 AGE: 74 REPORT TYPE: CONSULTATION REPORT SEX: M ADMITTING PHYSICIAN:Sekou Curtis MD ATTENDING PHYSICIAN:Sekou Curtis MD CONSULTATION DATE: 05/21/2020 CONSULTING PHYSICIAN: Zee Ramirez MD INFECTIOUS DISEASE CONSULT NOTE REASON FOR CONSULTATION: Right above-kne e amputation stump site surgical wound mild dehiscence with drainage, evaluation and ru le out infection. CHIEF COMPLAINT: None. HISTORY OF PRESENT ILLNESS: The patient is a 74- year-old white male with past medical history of end-stage renal disease on di alysis, hypertension, hyperlipidemia, history of right total knee arth roplasty complicated by infection underwent right above-knee amputation in 03/2020, admitted to [facility] from outside facility due to a fal l resulting in subdural hematoma. The patient was seen by neurosurgery, recommended no surgical intervention. He was seen by still operator helper for ma nagement of dialysis. The patient was transferred to rehabilitation unit o n 05/19/2020. Infectious disease consulted as the patient was noticed to have small amount of drainage from the right AKA stump site. Denies any fevers or chills. Denies taking any antibiotics. PAST MEDICAL HISTORY: Significant for end-stage renal disease on dialysis, coronary artery disease stat us post stents 4 years ago, hyperlipidemia, history of right prosthetic knee joint placement , complicated by infection recommended AKA and underwent AKA in March. SOCIAL HISTORY: No tobacco, alcohol, or drug abu se. ALLERGIES: THE PATIENT IS ALLERGIC TO PENICILLIN CAUSES MILD ITCHING. SULFA CAUSES SWELLING. IODINE CAUSES SWELLING. MEDICATIONS: Antibiotics-lake, the patient is no t on any oral or IV antibiotics. PHYSICAL EXAMINATION: GENERAL: The patient is well-built, well-nourish ed, very pleasant elderly woman, who is [facility] trying to eat his lunch. VITAL SIGNS: T-max of 37, heart rate 67, respira tions 18, and blood pressure 134/69. HEENT: Head, atraumatic and normocephalic. Face is symmetrical. Conjunctivae are nonicteric. Oropharynx is moist. PATIENT NAME: DARIEN GROSSMAN NECK: Supple. LUNGS: Clear to auscultation. HEART: Regular rate and rhythm. ABDOMEN: Good bowel sounds. EXTREMITIES: Right AKA stump medial side, small amount of serosanguineous drainage is noted and lateral side of the stump minimal serous drainage is noted. No surrounding erythema or induration is seen. LABORATORY DATA AND DIAGNOSTIC STUDIES: WBC 12.3 , hemoglobin 8.9, hematocrit 28, and platelets of 373. Sodium 137, potassium 3.6, chloride 97, bicarbonate 32, BUN of 31, and creatinine of 3.4, which is c hronic. Wound culture is showing no growth. Gram stain is never done. MRS A screen is pending. Left hip x-rays were done, which showed no fractures. ASSESSMENT AND PLAN: A 74-year-old with end-stage renal disease, hypertension, hyperlipidemia, coronary artery disease with right above-knee amputation stump surgical incision small area of dehiscence with drainage. Concerns are: 1. Infection. Obtain wound cultures, Gram stain, sed rate and C-reactive protein. Start the patient on vancomycin 1 g pos t-dialysis, first dose of vancomycin today after dialysis. Keep the trough around 20. 2. Start cefepime 1 gm IV q. 24 hours for gram-n egative coverage. The patient's allergic reaction to penicillin is mild and okay to give cefepime. We will give cefepime 1 g q. 24 hours, adjusting to the current creatinine clearance. If the sed rate and C-reactiv e protein are elevated, we will obtain MRI to rule out osteomyelitis. Thank you. We will follow. Dictated By: Zee Ramirez MD WT: [place]AT[place]/NANDA/LATHA Conf#: [id number]/DID#: [id number] Authenticated by Zee Ramirez MD On 07:57:00 PM at 1957 PATIENT NAME: DARIEN GROSSMAN 2020-05-21 17:27:00-00:00 [facility]L [facility] ([facility]) Wound Care Progress Note REPORT#:[id number] REPORT STATUS: Signed DATE:05/21/20 TIME: 1727 PATIENT: DARIEN GROSSMAN UNIT #: [id number] ROOM/BED: [facility]8-1 : 45 AGE: 74 SEX: M ATTEND: Rosa Curtis MD ADM AUTHOR: Janice Oliva NP * ALL edits or amendments must be made on the C-Note/computer document * Subjective Comments: Wound care consult: This is a 74-year-old male w ith past medical history of coronary artery disease s/p stents 4 years ago, ESRD on HD 3 x a week, h yperlipidemia, previous right TKA complicated with infection and a recent Rigt h AKA. He was admitted due to multiple falls sustainig sub dural hematoma. Patient has been losing his balance after recent right AKA. We w ere asked to see him for wound care recommendations for Right AKA wound dehiscen ce. Patient seen and examined. Denies pain, no SOB. History Past medical history: Reports: Coronary artery disease ( and stents 4 years ago). Additional medical history: ESRD, high cholesterol Additional surgical history: recent right AKA, previous right knee replacemen t complicated by infection Family history: Denies: CAD < 40 yrs old, Coagulopathy. Additional family history: he has a daughter and 2 sons but states they are not his surrogate decision makers. A family friend named Marin Anderson is the person he is currently designating Alcohol use: Denies EtOH use Drug use: Denies recreational drugs Smoking status: Smoking status for patients 13 years old or old er: Never Smoker Medication/Allergy-Vaccine Hx Allergies: Coded Allergies: shellfish derived (Severe, SWELLING 05/13/20) Iodine and Iodide Containing Produc (Mild, DIARR HEA 05/13/20) Uncoded Allergies: PINICILLIN (Mild, ITCHING 05/13/20) Ambulatory status: Wheelchair Review of Systems 12- system review were negative except per HPI. Medications: Home Medications: Medication Dose/Rte/Freq Days Qty Entered Last Max Daily Dose Reviewed busPIRone (BUSPAR) 10 MG PO BEDTIME 05/13/20 Strength: 10 MG TAB 1443 2255 HYDROcodone/APAP 1 TAB PO 05/13/20 05/19/20 (NORCO 10/325) Q6H PRN PRN PAIN 1443 2255 Strength: 10 MG-325 MG TAB ZOLPIDEM (AMBIEN) 10 MG PO 05/13/20 05/19/20 Strength: 10 MG TAB BEDTIME PRN 1444 2255 INSOMNIA GABAPENTIN (NEURONTIN) 300 MG PO BEDTIME 05/19/20 Strength: 300 MG CAP 1445 2255 DESVENLAFAXINE ER 25 MG PO DAILY 05/13/2005/19 (PRISTIQ) 1446 2255 Strength: 50 MG TAB.SR.24H traZODone (DESYREL) 150 MG PO BEDTIME 05/13/20 05/19/20 Strength: 150 MG TAB 1446 2255 FUROSEMIDE (LASIX) 40 MG PO DAILY 05/13/2010/01 Strength: 40 MG TAB 1447 2255 METOPROLOL TARTRATE 25 MG PO BID 05/13/2005/19 (LOPRESSOR) 1448 2255 Strength: 25 MG TAB levETIRAcetam (KEPPRA) 500 MG PO Q12HR 10 05/1405/19/20 Strength: 500 MG TAB 1333 2255 Current Hospital Medications: Blood Formation,Coagulation Sig/Tatum Start time Last Medication Dose Route Stop Time Status Admin Clopidogrel Bisulfate 75 MG DAILY 05/20 0900 AC 05/20 (Plavix) PO 06/19 1300 0951 Heparin Sodium 5,000 UNIT Q8H 05/19 2200 AC (HEPARIN 5000 UNITS/ SUBQ 06/19 1300 0526 ML) Epoetin Donny-epbx 4,000 UNIT TuThSa@2100 05/19 2100 CKD 05/19 (RETACRIT) SUBQ 06/19 1300 2302 Cardiovascular Drugs Sig/Tatum Start time Last Medication Dose Route Stop Time Status Admin Hydralazine HCl 10 MG Q6H PRN PRN 05/20 0845 AC (APRESOLINE) PO 06/19 0844 Metoprolol Tartrate 25 MG BID 05/19 2100 AC (LOPRESSOR) PO 06/19 1300 0951 Central Nervous System Agents Sig/Tatum Start time Last Medication Dose Route Stop Time Status Admin Aspirin 81 MG DAILY 05/20 899 AC 05/20 (ASPIRIN) PO 06/19 1300 0950 Venlafaxine HCl 75 MG DAILY 05/20 899 AC 05/20 (Effexor XR 37.5 mg) PO 06/19 1300 1013 Acetaminophen 650 MG Q6H PRN PRN 05/20 0845 AC (TYLENOL) PO 06/19 0844 Buspirone HCl 10 MG BEDTIME 05/19 2099 AC 05/19 (BUSPAR) PO 06/19 1300 2147 Gabapentin 300 MG BEDTIME 05/19 2099 AC 05/19 (NEURONTIN) PO 06/19 1300 2148 Levetiracetam 500 MG Q12HR 05/19 2099 AC 05/20 (KEPPRA) PO 05/21 0600 0952 Trazodone HCl 150 MG BEDTIME 05/19 2099 AC 8 (DESYREL) PO 06/19 1300 2148 Hydrocodone Bitart/ 1 TAB Q4H PRN PRN 05/19 201 5 AC 05/20 Acetaminophen PO 07/20 1300 1014 (NORCO 10/325) Zolpidem Tartrate 5 MG BEDTIME PRN PRN 05/19 20 00 AC 05/19 (AMBIEN) PO 06/19 1300 2148 Electrolytic, Caloric, And Nadia Sig/Tatum Start time Last Medication Dose Route Stop Time Status Admin Furosemide 40 MG DAILY 05/20 899 AC 05/20 (LASIX) PO 06/19 1300 0951 Gastrointestinal Drugs Sig/Tatum Start time Last Medication Dose Route Stop Time Status Admin Polyethylene Glycol 17 GM DAILY 05/20 899 AC 0 05/20 (MIRALAX) PO 06/19 1300 0951 Senna 1 TAB DAILY 05/20 899 CKD 05/20 (SENOKOT) PO 06/19 1300 0951 Ondansetron HCl 4 MG TID PRN PRN 05/20 0845 AC (ZOFRAN ODT) SL 06/20 0744 Allergies: Coded Allergies: shellfish derived (Severe, SWELLING 05/13/20) Iodine and Iodide Containing Produc (Mild, DIARR HEA 05/13/20) Uncoded Allergies: PINICILLIN (Mild, ITCHING 05/13/20) Objective General VS: Last Documented: Result Date Time Pulse Ox 93 05/21 1643 B/P 132/66 05/21 164 B/P Mean 88.3 05/21 1643 Temp 37.3 05/21 1643 Pulse 69 05/21 1643 Resp 24 05/21 1643 O2 Delivery Room air 05/20 0005 PATIENT WEIGHT: Weight (lb): 171 Weight (oz): 12.16 Weight (kg): 77.909 Physical Exam Skin: R AKA wound dehiscence on both ends of the incision. Medially, 1 x 1 x 0.2 macerated, with scant slough. Lateral aspect of the incision, 0.5 x 3 cm with slough, with periwound eryth jennifer more on the medial aspect of the incision. Scant serous drainage. No odor. Results Findings/Data: Laboratory Tests 05/21/20 0550: [Embedded Image Not Available] 05/20/20 0535: [Embedded Image Not Available] Current Medications Sig/Tatum Start time Last Medication Dose Route Stop Time Status Admin Vancomycin HCl 1,500 MG ONCE ONE 05/21 1500 AC Sodium Chloride 500 ML IV 05/21 2100 Miscellaneous 1 EACH ASDIR 05/21 1145 CKD Information IV 06/20 1144 Vancomycin HCl 1,000 MG ONCE ONE 05/21 1145 CAN Sodium Chloride 250 ML IV 05/21 1244 Lidocaine 1 PATCH DAILY 05/21 899 AC 05/21 TOPICAL 06/20 0859 1017 Amitriptyline HCl 10 MG BEDTIME 05/20 2100 AC 0 05/20 PO 06/192 Triamcinolone 40 MG PROCEDURE 05/20 1944 CKD Acetonide IM 06/19 194 Aspirin 81 MG DAILY 05/20 899 AC 05/21 PO 06/19 1300 1016 Clopidogrel Bisulfate 75 MG DAILY 05/20 899 AC 05/21 PO 06/19 1300 1016 Furosemide 40 MG DAILY 05/20 899 AC 05/21 PO 06/19 1300 1016 Polyethylene Glycol 17 GM DAILY 05/20 899 AC 0 05/21 PO 06/19 1300 1016 Senna 1 TAB DAILY 05/20 899 CKD 05/21 PO 06/19 1300 1015 Venlafaxine HCl 75 MG DAILY 05/20 899 AC 05/12 0 PO 06/19 1300 1016 Acetaminophen 650 MG Q6H PRN PRN 05/20 844 AC PO 06/19 0844 Hydralazine HCl 10 MG Q6H PRN PRN 05/20 844 AC PO 06/19 0844 Ondansetron HCl 4 MG TID PRN PRN 05/20 0845 AC SL 06/19 0844 Heparin Sodium 5,000 UNIT Q8H 05/19 220 AC SUBQ 06/19 1300 0534 Buspirone HCl 10 MG BEDTIME 05/19 2100 AC 05/20 PO 06/19 1300 2233 Epoetin Donny-epbx 4,000 UNIT TuThSa@2100 05/19 2100 AC 05/19 SUBQ 06/19 1300 2302 Gabapentin 300 MG BEDTIME 05/19 2100 AC 05/20 PO 06/19 1300 2234 Levetiracetam 500 MG Q12HR 05/19 2099 DC 05/20 PO 05/21 0600 2233 Metoprolol Tartrate 25 MG BID 05/19 2099 AC PO 06/19 1300 1016 Trazodone HCl 150 MG BEDTIME 05/19 2100 AC 9 PO 06/19 1300 2234 Hydrocodone Bitart/ 1 TAB Q4H PRN PRN 05/19 201 5 AC 05/20 Acetaminophen PO 07/20 1300 2244 Zolpidem Tartrate 5 MG BEDTIME PRN PRN 05/19 20 00 AC 05/20 PO 06/19 1300 2243 Laboratory Tests: 05/21 0550 Chemistry Sodium (134 - 147 mEq/L) 137 Potassium (3.4 - 5.0 mEq/L) 3.6 Chloride (100 - 108 mEq/L) 97 L Carbon Dioxide (21 - 33 mEq/l) 32 Anion Gap (0 - 20) 11 BUN (7 - 18 mg/dL) 31 H Creatinine (0.6 - 1.3 mg/dL) 3.4 H Glomerular Filtr Rate (70 - 80) 17.8 L Glucose (70 - 110 mg/dL) 84 Calcium (8.0 - 10.5 mg/dL) 9.1 Hematology WBC (4.5 - 11.0 x10 3/uL) 12.3 H RBC (4.00 - 5.60 x10 6/uL) 3.09 L Hgb (12.5 - 16.9 g/dL) 8.9 L Hct (37.5 - 50.7 %) 28.3 L MCV (81.0 - 99.0 fL) 91.6 MCH (27.0 - 33.0 pg) 28.8 MCHC (33.0 - 37.0 g/dL) 31.4 L RDW (11.5 - 14.5 %) 14.4 Plt Count (150 - 400 x10 3/uL) 373 MPV (7.0 - 9.0 fL) 8.8 Neut % (Auto) (56.0 - 77.0 %) 74.4 Lymph % (Auto) (14.0 - 32.0 %) 9.4 L Dolores % (Auto) (4.8 - 9.0 %) 10.2 H Eos % (Auto) (0.3 - 3.7 %) 5.2 H Baso % (Auto) (0.0 - 2.0 %) 0.3 Neut # (Auto) (2.0 - 7.6 x10 3/uL) 9.13 H Lymph # (Auto) (1.0 - 3.8 x10 3/uL) 1.16 Dolores # (Auto) (0.1 - 0.8 x10 3/uL) 1.25 H Eos # (Auto) (0.0 - 0.2 x10 3/uL) 0.64 H Baso # (Auto) (0.0 - 0.2 x10 3/uL) 0.04 Abs Immat Gran (auto) (0.00 - 0.03 x10 3/uL) 0. 06 H Add Manual Diff NO Immature Gran % (0.0 - 2.0 %) 0.5 Nucleated RBC % (0 - 0 %) 0.0 Nucleated RBCs # (Man) (0.0 - 0.1 x10 3/uL) 0.0 0 Microbiology: Date/Time Procedure - Status Source Growth 05/21 1143 Gram Stain - ORD WND OTHER 05/21 0545 Wound Culture - RECD LEG Diagnosis, Assessment Plan Problem List/A P: 1. Fall 2. Subdural hematoma 3. End stage renal disease 4. Impaired functional mobility, balance, gait, and endurance 5. Anemia of chronic disease Free Text A P: Right AKA wound dehiscence - Culture done, resul ts pending. Santyl with xeroform to dehisced sites cover with fo am dressing daily. Check prealbumin in am. [ x] Optimize Nutrition and Glycemic Control [ x] Pressure relieving inte rventions (Low Air Mattress, Prevalon boot, Turn q2h ) [ x] Nursing to implement impaired skin integrit y care plan as per skin care protocol Coordinattion of care D/W [ ] Other MD's [ x ] P atient [ ] Family [ ] Nursing [ ] Case Management I have personally interviewed and examined the p atient. All charts, labs, and imaging studies were reviewed. I agree with the PA/MONOGRAM MAKER's findings, exam, and plan. Electronically Signed by Janice Oliva NP o n 05/21/20 at 1745 RPT #:[id number] END OF REPORT 2020-05-21 17:27:00-00:00 [facility] ([facility]) Wound Care Progress Note REPORT#:[id number] REPORT STATUS: Signed DATE:05/21/20 TIME: 1726 PATIENT: DARIEN GROSSMAN UNIT #: [id number] ROOM/BED: [place] [address] : 45 AGE: 74 SEX: M ATTEND: Rosa Curtis MD ADM AUTHOR: Janice Oliva NP * ALL edits or amendments must be made on the C-Note/computer document * Janice Oliva 05/21/201726: Subjective Comments: Wound care consult: This is a 74-year-old male w ith past medical history of coronary artery disease s/p stents 4 years ago, ESRD on HD 3 x a week, h yperlipidemia, previous right TKA complicated with infection and a recent Rigt h AKA. He was admitted due to multiple falls sustainig sub dural hematoma. Patient has been losing his balance after recent right AKA. We w ere asked to see him for wound care recommendations for Right AKA wound dehiscen ce. Patient seen and examined. Denies pain, no SOB. History Past medical history: Reports: Coronary artery disease ( and stents 4 years ago). Additional medical history: ESRD, high cholesterol Additional surgical history: recent right AKA, previous right knee replacemen t complicated by infection Family history: Denies: CAD < 40 yrs old, Coagulopathy. Additional family history: he has a daughter and 2 sons but states they are not his surrogate decision makers. A family friend named Marin Anderson is the person he is currently designating Alcohol use: Denies EtOH use Drug use: Denies recreational drugs Smoking status: Smoking status for patients 13 years old or old er: Never Smoker Medication/Allergy-Vaccine Hx Allergies: Coded Allergies: shellfish derived (Severe, SWELLING 05/13/20) Iodine and Iodide Containing Produc (Mild, DIARR HEA 05/13/20) Uncoded Allergies: PINICILLIN (Mild, ITCHING 05/13/20) Ambulatory status: Wheelchair Review of Systems 12- system review were negative except per HPI. Medications: Home Medications: Medication Dose/Rte/Freq Days Qty Entered Last Max Daily Dose Reviewed busPIRone (BUSPAR) 10 MG PO BEDTIME 05/13/20 Strength: 10 MG TAB 1443 2255 HYDROcodone/APAP 1 TAB PO 05/13/20 05/19/20 (NORCO 10/325) Q6H PRN PRN PAIN 1443 2255 Strength: 10 MG-325 MG TAB ZOLPIDEM (AMBIEN) 10 MG PO 05/13/20 05/19/20 Strength: 10 MG TAB BEDTIME PRN 1444 2255 INSOMNIA GABAPENTIN (NEURONTIN) 300 MG PO BEDTIME 05/19/20 Strength: 300 MG CAP 1445 2255 DESVENLAFAXINE ER 25 MG PO DAILY 05/13/2010/01 (PRISTIQ) 1446 2255 Strength: 50 MG TAB.SR.24H traZODone (DESYREL) 150 MG PO BEDTIME 05/13/20 05/19/20 Strength: 150 MG TAB 1446 2255 FUROSEMIDE (LASIX) 40 MG PO DAILY 05/13/2010/01 Strength: 40 MG TAB 1447 2255 METOPROLOL TARTRATE 25 MG PO BID 05/13/2005/19 (LOPRESSOR) 1448 2255 Strength: 25 MG TAB levETIRAcetam (KEPPRA) 500 MG PO Q12HR 10 05/1405/19/20 Strength: 500 MG TAB 1333 2255 Current Hospital Medications: Blood Formation,Coagulation Sig/Tatum Start time Last Medication Dose Route Stop Time Status Admin Clopidogrel Bisulfate 75 MG DAILY 05/20 0900 AC 05/20 (Plavix) PO 06/19 1300 0951 Heparin Sodium 5,000 UNIT Q8H 05/19 2200 AC (HEPARIN 5000 UNITS/ SUBQ 06/19 1300 0526 ML) Epoetin Donny-epbx 4,000 UNIT TuThSa@2100 05/19 2100 CKD 05/19 (RETACRIT) SUBQ 06/19 1300 2302 Cardiovascular Drugs Sig/Tatum Start time Last Medication Dose Route Stop Time Status Admin Hydralazine HCl 10 MG Q6H PRN PRN 05/20 0845 AC (APRESOLINE) PO 06/19 0844 Metoprolol Tartrate 25 MG BID 05/19 2099 AC (LOPRESSOR) PO 06/19 1300 0951 Central Nervous System Agents Sig/Tatum Start time Last Medication Dose Route Stop Time Status Admin Aspirin 81 MG DAILY 05/20 899 AC 05/20 (ASPIRIN) PO 06/19 1300 0950 Venlafaxine HCl 75 MG DAILY 05/20 899 AC 05/20 (Effexor XR 37.5 mg) PO 06/19 1300 1013 Acetaminophen 650 MG Q6H PRN PRN 05/20 0845 AC (TYLENOL) PO 06/19 0844 Buspirone HCl 10 MG BEDTIME 05/19 2099 AC 05/19 (BUSPAR) PO 06/19 1300 2147 Gabapentin 300 MG BEDTIME 05/19 2099 AC 05/19 (NEURONTIN) PO 06/19 1300 2148 Levetiracetam 500 MG Q12HR 05/19 2099 AC 05/20 (KEPPRA) PO 05/21 0600 0952 Trazodone HCl 150 MG BEDTIME 05/19 2100 AC 8 (DESYREL) PO 06/19 1300 2148 Hydrocodone Bitart/ 1 TAB Q4H PRN PRN 05/19 201 5 AC 05/20 Acetaminophen PO 07/20 1300 1014 (NORCO 10/325) Zolpidem Tartrate 5 MG BEDTIME PRN PRN 05/19 20 00 AC 05/19 (AMBIEN) PO 06/19 1300 2148 Electrolytic, Caloric, And Nadia Sig/Tatum Start time Last Medication Dose Route Stop Time Status Admin Furosemide 40 MG DAILY 05/20 899 AC 05/20 (LASIX) PO 06/19 1300 0951 Gastrointestinal Drugs Sig/Tatum Start time Last Medication Dose Route Stop Time Status Admin Polyethylene Glycol 17 GM DAILY 05/20 899 AC 05/20 (MIRALAX) PO 06/19 1300 0951 Senna 1 TAB DAILY 05/20 899 CKD 05/20 (SENOKOT) PO 06/19 1300 0951 Ondansetron HCl 4 MG TID PRN PRN 05/20 0845 AC (ZOFRAN ODT) SL 06/19 0844 Allergies: Coded Allergies: shellfish derived (Severe, SWELLING 05/13/20) Iodine and Iodide Containing Produc (Mild, DIARR HEA 05/13/20) Uncoded Allergies: PINICILLIN (Mild, ITCHING 05/13/20) Objective General VS: Last Documented: Result Date Time Pulse Ox 93 05/21 164 B/P 132/66 05/21 164 B/P Mean 88.3 05/21 164 Temp 37.3 05/21 164 Pulse 69 05/21 1643 Resp 24 05/21 164 O2 Delivery Room air 05/20 0005 PATIENT WEIGHT: Weight (lb): 171 Weight (oz): 12.16 Weight (kg): 77.909 Physical Exam Skin: R AKA wound dehiscence on both ends of the incision. Medially, 1 x 1 x 0.2 macerated, with scant slough. Lateral aspect of the incision, 0.5 x 3 cm with slough, with periwound eryth jennifer more on the medial aspect of the incision. Scant serous drainage. No odor. Results Findings/Data: Laboratory Tests 05/21/20 0550: [Embedded Image Not Available] 05/20/20 0535: [Embedded Image Not Available] Current Medications Sig/Tatum Start time Last Medication Dose Route Stop Time Status Admin Vancomycin HCl 1,500 MG ONCE ONE 05/21 1500 AC Sodium Chloride 500 ML IV 05/21 2100 Miscellaneous 1 EACH ASDIR 05/21 1145 CKD Information IV 06/20 1144 Vancomycin HCl 1,000 MG ONCE ONE 05/21 1145 CAN Sodium Chloride 250 ML IV 05/21 1244 Lidocaine 1 PATCH DAILY 05/21 899 AC 05/21 TOPICAL 06/20 0859 1017 Amitriptyline HCl 10 MG BEDTIME 05/20 2100 AC 0 05/20 PO 06/19 Triamcinolone 40 MG PROCEDURE 05/20 1944 CKD Acetonide IM 06/19 194 Aspirin 81 MG DAILY 05/20 899 AC 05/21 PO 06/19 1300 1016 Clopidogrel Bisulfate 75 MG DAILY 05/20 899 AC 05/21 PO 06/19 1300 1016 Furosemide 40 MG DAILY 05/20 899 AC 05/21 PO 06/19 1300 1016 Polyethylene Glycol 17 GM DAILY 05/20 899 AC 0 05/21 PO 06/19 1300 1016 Senna 1 TAB DAILY 05/20 899 CKD 05/21 PO 06/19 1300 1015 Venlafaxine HCl 75 MG DAILY 05/20 899 AC 05/21 PO 06/19 1300 1016 Acetaminophen 650 MG Q6H PRN PRN 05/20 844 AC PO 06/19 0844 Hydralazine HCl 10 MG Q6H PRN PRN 05/20 844 AC PO 06/19 0844 Ondansetron HCl 4 MG TID PRN PRN 05/20 844 AC SL 06/20 0744 Heparin Sodium 5,000 UNIT Q8H 05/19 2199 AC SUBQ 06/19 1300 0534 Buspirone HCl 10 MG BEDTIME 05/19 2099 AC 05/20 PO 06/19 1300 2233 Epoetin Donny-epbx 4,000 UNIT TuThSa@2100 05/19 2100 AC 05/19 SUBQ 06/19 1300 2302 Gabapentin 300 MG BEDTIME 05/19 2100 AC 05/20 PO 06/19 1300 2234 Levetiracetam 500 MG Q12HR 05/19 2100 DC 05/20 PO 05/21 06 2233 Metoprolol Tartrate 25 MG BID 05/19 2100 AC PO 06/19 1300 1016 Trazodone HCl 150 MG BEDTIME 05/19 2100 AC 9 PO 06/19 1300 2234 Hydrocodone Bitart/ 1 TAB Q4H PRN PRN 05/19 201 5 AC 05/20 Acetaminophen PO 07/20 1300 2244 Zolpidem Tartrate 5 MG BEDTIME PRN PRN 05/19 20 00 AC 05/20 PO 06/19 1300 2243 Laboratory Tests: 05/21 0550 Chemistry Sodium (134 - 147 mEq/L) 137 Potassium (3.4 - 5.0 mEq/L) 3.6 Chloride (100 - 108 mEq/L) 97 L Carbon Dioxide (21 - 33 mEq/l) 32 Anion Gap (0 - 20) 11 BUN (7 - 18 mg/dL) 31 H Creatinine (0.6 - 1.3 mg/dL) 3.4 H Glomerular Filtr Rate (70 - 80) 17.8 L Glucose (70 - 110 mg/dL) 84 Calcium (8.0 - 10.5 mg/dL) 9.1 Hematology WBC (4.5 - 11.0 x10 3/uL) 12.3 H RBC (4.00 - 5.60 x10 6/uL) 3.09 L Hgb (12.5 - 16.9 g/dL) 8.9 L Hct (37.5 - 50.7 %) 28.3 L MCV (81.0 - 99.0 fL) 91.6 MCH (27.0 - 33.0 pg) 28.8 MCHC (33.0 - 37.0 g/dL) 31.4 L RDW (11.5 - 14.5 %) 14.4 Plt Count (150 - 400 x10 3/uL) 373 MPV (7.0 - 9.0 fL) 8.8 Neut % (Auto) (56.0 - 77.0 %) 74.4 Lymph % (Auto) (14.0 - 32.0 %) 9.4 L Dolores % (Auto) (4.8 - 9.0 %) 10.2 H Eos % (Auto) (0.3 - 3.7 %) 5.2 H Baso % (Auto) (0.0 - 2.0 %) 0.3 Neut # (Auto) (2.0 - 7.6 x10 3/uL) 9.13 H Lymph # (Auto) (1.0 - 3.8 x10 3/uL) 1.16 Dolores # (Auto) (0.1 - 0.8 x10 3/uL) 1.25 H Eos # (Auto) (0.0 - 0.2 x10 3/uL) 0.64 H Baso # (Auto) (0.0 - 0.2 x10 3/uL) 0.04 Abs Immat Gran (auto) (0.00 - 0.03 x10 3/uL) 0. 06 H Add Manual Diff NO Immature Gran % (0.0 - 2.0 %) 0.5 Nucleated RBC % (0 - 0 %) 0.0 Nucleated RBCs # (Man) (0.0 - 0.1 x10 3/uL) 0.0 0 Microbiology: Date/Time Procedure - Status Source Growth 05/21 1143 Gram Stain - ORD WND OTHER 05/21 0545 Wound Culture - RECD LEG Diagnosis, Assessment Plan Problem List/A P: 1. Fall 2. Subdural hematoma 3. End stage renal disease 4. Impaired functional mobility, balance, gait, and endurance 5. Anemia of chronic disease Free Text A P: Right AKA wound dehiscence - Culture done, resul ts pending. Santyl with xeroform to dehisced sites cover with fo am dressing daily. Check prealbumin in am. [ x] Optimize Nutrition and Glycemic Control [ x] Pressure relieving inte rventions (Low Air Mattress, Prevalon boot, Turn q2h ) [ x] Nursing to implement impaired skin integrit y care plan as per skin care protocol Coordinattion of care D/W [ ] Other MD's [ x ] P atient [ ] Family [ ] Nursing [ ] Case Management I have personally interviewed and examined the p atient. All charts, labs, and imaging studies were reviewed. I agree with the PA/MONOGRAM MAKER's findings, exam, and plan. Shaila Gilbert 05/23/20 0906: Diagnosis, Assessment Plan Additional comments: I have personally interviewed and examined the p atient. All charts, labs, and imaging studies were reviewed. I agree with the PA/MONOGRAM MAKER's findings, exam, and plan. Wound dehiscence w surgical site infection - cul tures pending; On Vanc,, Cefepime per ID. Silver algisite to incision for now. Electronically Signed by Janice Oliva NP o n 05/21/20 at 1745 RPT #:[id number] END OF REPORT 2020-05-21 17:27:00-00:00 [facility] ([facility]) Wound Care Progress Note REPORT#:[id number] REPORT STATUS: Signed DATE:05/21/20 TIME: 1726 PATIENT: DARIEN GROSSMAN UNIT #: [id number] ROOM/BED: [place] [address] : 45 AGE: 74 SEX: M ATTEND: Rosa Curtis MD ADM AUTHOR: Janice Oliva NP * ALL edits or amendments must be made on the el ectronic/computer document * Janice Oliva 05/21/20 1727: Subjective Comments: Wound care consult: This is a 74-year-old male w ith past medical history of coronary artery disease s/p stents 4 years ago, ESRD on HD 3 x a week, h yperlipidemia, previous right TKA complicated with infection and a recent Rigt h AKA. He was admitted due to multiple falls sustainig sub dural hematoma. Patient has been losing his balance after recent right AKA. We w ere asked to see him for wound care recommendations for Right AKA wound dehiscen ce. Patient seen and examined. Denies pain, no SOB. History Past medical history: Reports: Coronary artery disease ( and stents 4 years ago). Additional medical history: ESRD, high cholesterol Additional surgical history: recent right AKA, previous right knee replacemen t complicated by infection Family history: Denies: CAD < 40 yrs old, Coagulopathy. Additional family history: he has a daughter and 2 sons but states they are not his surrogate decision makers. A family friend named Marin Anderson is the person he is currently designating Alcohol use: Denies EtOH use Drug use: Denies recreational drugs Smoking status: Smoking status for patients 13 years old or old er: Never Smoker Medication/Allergy-Vaccine Hx Allergies: Coded Allergies: shellfish derived (Severe, SWELLING 05/13/20) Iodine and Iodide Containing Produc (Mild, DIARR HEA 05/13/20) Uncoded Allergies: PINICILLIN (Mild, ITCHING 05/13/20) Ambulatory status: Wheelchair Review of Systems 12- system review were negative except per HPI. Medications: Home Medications: Medication Dose/Rte/Freq Days Qty Entered Last Max Daily Dose Reviewed busPIRone (BUSPAR) 10 MG PO BEDTIME 05/13/20 Strength: 10 MG TAB 1443 2255 HYDROcodone/APAP 1 TAB PO 05/13/20 05/19/20 (NORCO 10/325) Q6H PRN PRN PAIN 1443 2255 Strength: 10 MG-325 MG TAB ZOLPIDEM (AMBIEN) 10 MG PO 05/13/20 05/19/20 Strength: 10 MG TAB BEDTIME PRN 1444 2255 INSOMNIA GABAPENTIN (NEURONTIN) 300 MG PO BEDTIME 05/19/20 Strength: 300 MG CAP 1445 2255 DESVENLAFAXINE ER 25 MG PO DAILY 05/13/2010/01 (PRISTIQ) 1446 2255 Strength: 50 MG TAB.SR.24H traZODone (DESYREL) 150 MG PO BEDTIME 05/13/20 05/19/20 Strength: 150 MG TAB 1446 2255 FUROSEMIDE (LASIX) 40 MG PO DAILY 05/13/2010/01 Strength: 40 MG TAB 1447 2255 METOPROLOL TARTRATE 25 MG PO BID 05/13/2005/19 (LOPRESSOR) 1448 2255 Strength: 25 MG TAB levETIRAcetam (KEPPRA) 500 MG PO Q12HR 10 05/1405/19/20 Strength: 500 MG TAB 1333 2255 Current Hospital Medications: Blood Formation,Coagulation Sig/Tatum Start time Last Medication Dose Route Stop Time Status Admin Clopidogrel Bisulfate 75 MG DAILY 05/20 899 AC 05/20 (Plavix) PO 06/19 1300 0951 Heparin Sodium 5,000 UNIT Q8H 05/19 2200 AC (HEPARIN 5000 UNITS/ SUBQ 06/19 1300 0526 ML) Epoetin Donny-epbx 4,000 UNIT TuThSa@2100 05/19 2100 CKD 05/19 (RETACRIT) SUBQ 06/19 1300 2302 Cardiovascular Drugs Sig/Tatum Start time Last Medication Dose Route Stop Time Status Admin Hydralazine HCl 10 MG Q6H PRN PRN 05/20 0845 AC (APRESOLINE) PO 06/19 0844 Metoprolol Tartrate 25 MG BID 05/19 2099 AC (LOPRESSOR) PO 06/19 1300 0951 Central Nervous System Agents Sig/Tatum Start time Last Medication Dose Route Stop Time Status Admin Aspirin 81 MG DAILY 05/20 899 AC 05/20 (ASPIRIN) PO 06/19 1300 0950 Venlafaxine HCl 75 MG DAILY 05/20 899 AC 05/20 (Effexor XR 37.5 mg) PO 06/19 1300 1013 Acetaminophen 650 MG Q6H PRN PRN 05/20 0845 AC (TYLENOL) PO 06/19 0844 Buspirone HCl 10 MG BEDTIME 05/19 2099 AC 05/19 (BUSPAR) PO 06/19 1300 2147 Gabapentin 300 MG BEDTIME 04/2099 AC 05/19 (NEURONTIN) PO 06/19 1300 2148 Levetiracetam 500 MG Q12HR 05/19 2099 AC 05/20 (KEPPRA) PO 05/21 0600 0952 Trazodone HCl 150 MG BEDTIME 05/19 2099 AC (DESYREL) PO 06/19 1300 2148 Hydrocodone Bitart/ 1 TAB Q4H PRN PRN 05/19 201 5 AC 05/20 Acetaminophen PO 07/20 1300 1014 (NORCO 10/325) Zolpidem Tartrate 5 MG BEDTIME PRN PRN 05/19 20 00 AC 05/19 (AMBIEN) PO 06/19 1300 2148 Electrolytic, Caloric, And Nadia Sig/Tatum Start time Last Medication Dose Route Stop Time Status Admin Furosemide 40 MG DAILY 05/20 899 AC 05/20 (LASIX) PO 06/19 1300 0951 Gastrointestinal Drugs Sig/Tatum Start time Last Medication Dose Route Stop Time Status Admin Polyethylene Glycol 17 GM DAILY 05/20 899 AC 0 05/20 (MIRALAX) PO 06/19 1300 0951 Senna 1 TAB DAILY 05/20 899 CKD 05/20 (SENOKOT) PO 06/19 1300 0951 Ondansetron HCl 4 MG TID PRN PRN 05/20 0845 AC (ZOFRAN ODT) SL 06/19 0844 Allergies: Coded Allergies: shellfish derived (Severe, SWELLING 05/13/20) Iodine and Iodide Containing Produc (Mild, DIARR HEA 05/13/20) Uncoded Allergies: PINICILLIN (Mild, ITCHING 05/13/20) Objective General VS: Last Documented: Result Date Time Pulse Ox 93 05/21 164 B/P 132/66 05/21 1643 B/P Mean 88.3 05/21 1643 Temp 37.3 05/21 1643 Pulse 69 05/21 1643 Resp 24 05/21 164 O2 Delivery Room air 05/20 0005 PATIENT WEIGHT: Weight (lb): 171 Weight (oz): 12.16 Weight (kg): 77.909 Physical Exam Skin: R AKA wound dehiscence on both ends of the incision. Medially, 1 x 1 x 0.2 macerated, with scant slough. Lateral aspect of the incision, 0.5 x 3 cm with slough, with periwound eryth jennifer more on the medial aspect of the incision. Scant serous drainage. No odor. Results Findings/Data: Laboratory Tests 05/21/20 0550: [Embedded Image Not Available] 05/20/20 0535: [Embedded Image Not Available] Current Medications Sig/Tatum Start time Last Medication Dose Route Stop Time Status Admin Vancomycin HCl 1,500 MG ONCE ONE 05/21 1500 AC Sodium Chloride 500 ML IV 05/21 2100 Miscellaneous 1 EACH ASDIR 05/21 1145 CKD Information IV 06/20 1144 Vancomycin HCl 1,000 MG ONCE ONE 05/21 1145 CAN Sodium Chloride 250 ML IV 05/21 1244 Lidocaine 1 PATCH DAILY 05/21 899 AC 05/21 TOPICAL 06/20 0859 1017 Amitriptyline HCl 10 MG BEDTIME 05/20 2099 AC 0 05/20 PO 06/19 2058 2232 Triamcinolone 40 MG PROCEDURE 05/20 194 CKD Acetonide IM 06/19 194 Aspirin 81 MG DAILY 05/20 899 AC 05/21 PO 06/19 1300 1016 Clopidogrel Bisulfate 75 MG DAILY 05/20 899 AC 05/21 PO 06/19 1300 1016 Furosemide 40 MG DAILY 05/20 899 AC 05/21 PO 06/19 1300 1016 Polyethylene Glycol 17 GM DAILY 05/20 899 AC 0 05/21 PO 06/19 1300 1016 Senna 1 TAB DAILY 05/20 899 CKD 05/21 PO 06/19 1300 1015 Venlafaxine HCl 75 MG DAILY 05/20 899 AC 05/21 PO 06/19 1300 1016 Acetaminophen 650 MG Q6H PRN PRN 05/20 0845 AC PO 06/19 0844 Hydralazine HCl 10 MG Q6H PRN PRN 05/20 0845 AC PO 06/19 0844 Ondansetron HCl 4 MG TID PRN PRN 05/20 0845 AC SL 06/19 0844 Heparin Sodium 5,000 UNIT Q8H 05/19 2200 AC SUBQ 06/19 1300 0534 Buspirone HCl 10 MG BEDTIME 05/19 2099 AC 05/20 PO 06/19 1300 2233 Epoetin Donny-epbx 4,000 UNIT TuThSa@2100 05/19 2100 AC 05/19 SUBQ 06/19 1300 2302 Gabapentin 300 MG BEDTIME 05/19 2100 AC 05/20 PO 06/19 1300 2234 Levetiracetam 500 MG Q12HR 05/19 2100 DC 05/20 PO 05/21 0600 223 Metoprolol Tartrate 25 MG BID 05/19 2100 AC PO 06/19 1300 1016 Trazodone HCl 150 MG BEDTIME 05/19 2100 AC PO 06/19 1300 2234 Hydrocodone Bitart/ 1 TAB Q4H PRN PRN 05/19 201 5 AC 05/20 Acetaminophen PO 07/20 1300 2244 Zolpidem Tartrate 5 MG BEDTIME PRN PRN 05/19 20 00 AC 05/20 PO 06/19 1300 2243 Laboratory Tests: 05/21 0550 Chemistry Sodium (134 - 147 mEq/L) 137 Potassium (3.4 - 5.0 mEq/L) 3.6 Chloride (100 - 108 mEq/L) 97 L Carbon Dioxide (21 - 33 mEq/l) 32 Anion Gap (0 - 20) 11 BUN (7 - 18 mg/dL) 31 H Creatinine (0.6 - 1.3 mg/dL) 3.4 H Glomerular Filtr Rate (70 - 80) 17.8 L Glucose (70 - 110 mg/dL) 84 Calcium (8.0 - 10.5 mg/dL) 9.1 Hematology WBC (4.5 - 11.0 x10 3/uL) 12.3 H RBC (4.00 - 5.60 x10 6/uL) 3.09 L Hgb (12.5 - 16.9 g/dL) 8.9 L Hct (37.5 - 50.7 %) 28.3 L MCV (81.0 - 99.0 fL) 91.6 MCH (27.0 - 33.0 pg) 28.8 MCHC (33.0 - 37.0 g/dL) 31.4 L RDW (11.5 - 14.5 %) 14.4 Plt Count (150 - 400 x10 3/uL) 373 MPV (7.0 - 9.0 fL) 8.8 Neut % (Auto) (56.0 - 77.0 %) 74.4 Lymph % (Auto) (14.0 - 32.0 %) 9.4 L Dolores % (Auto) (4.8 - 9.0 %) 10.2 H Eos % (Auto) (0.3 - 3.7 %) 5.2 H Baso % (Auto) (0.0 - 2.0 %) 0.3 Neut # (Auto) (2.0 - 7.6 x10 3/uL) 9.13 H Lymph # (Auto) (1.0 - 3.8 x10 3/uL) 1.16 Dolores # (Auto) (0.1 - 0.8 x10 3/uL) 1.25 H Eos # (Auto) (0.0 - 0.2 x10 3/uL) 0.64 H Baso # (Auto) (0.0 - 0.2 x10 3/uL) 0.04 Abs Immat Gran (auto) (0.00 - 0.03 x10 3/uL) 0. 06 H Add Manual Diff NO Immature Gran % (0.0 - 2.0 %) 0.5 Nucleated RBC % (0 - 0 %) 0.0 Nucleated RBCs # (Man) (0.0 - 0.1 x10 3/uL) 0.0 0 Microbiology: Date/Time Procedure - Status Source Growth 05/21 1143 Gram Stain - ORD WND OTHER 05/21 0545 Wound Culture - RECD LEG Diagnosis, Assessment Plan Problem List/A P: 1. Fall 2. Subdural hematoma 3. End stage renal disease 4. Impaired functional mobility, balance, gait, and endurance 5. Anemia of chronic disease Free Text A P: Right AKA wound dehiscence - Culture done, resul ts pending. Santyl with xeroform to dehisced sites cover with fo am dressing daily. Check prealbumin in am. [ x] Optimize Nutrition and Glycemic Control [ x] Pressure relieving inte rventions (Low Air Mattress, Prevalon boot, Turn q2h ) [ x] Nursing to implement impaired skin integrit y care plan as per skin care protocol Coordinattion of care D/W [ ] Other MD's [ x ] P atient [ ] Family [ ] Nursing [ ] Case Management I have personally interviewed and examined the p atient. All charts, labs, and imaging studies were reviewed. I agree with the PA/MONOGRAM MAKER's findings, exam, and plan. Shaila Gilbert 05/23/20 0906: Diagnosis, Assessment Plan Additional comments: I have personally interviewed and examined the p atient. All charts, labs, and imaging studies were reviewed. I agree with the PA/MONOGRAM MAKER's findings, exam, and plan. Wound dehiscence w surgical site infection - cul tures pending; On Vanc,, Cefepime per ID. Silver algisite to incision for now. Electronically Signed by Janice Oliva MONOGRAM MAKER o n 05/21/20 at 1745 at 0908 RPT #:[id number] END OF REPORT 2020-05-21 16:41:00-00:00 [facility] ([id number] Nephrology Progress Note REPORT#:[id number] REPORT STATUS: Signed DATE:05/21/20 TIME: 1640 PATIENT: DARIEN GROSSMAN UNIT #: [id number] ROOM/BED: [place] [address] : 45 AGE: 74 SEX: M ATTEND: Rosa Curtis MD ADM AUTHOR: Merissa Dillon MD * ALL edits or amendments must be made on the C-Note/computer document * Subjective Chief Complaint: Patient seen and examined. Just returned from di alysis. Denies complaints Objective General VS/I O: Vital Signs: Date Time Temp Pulse Resp B/P B/P Pulse O2 O2 F low FiO2 Mean Ox Delivery Rate 05/21 0833 97.9 70 20 150/66 93.6 91 05/21 0541 97.9 60 16 127/64 84.9 90 05/20 1944 97.3 78 14 158/73 101.3 95 24 hour I O ending at 0700: 05/21 0700 05/20 1900 Intake Total 120 Output Total 1570 Balance -1450 Intake, Oral 120 Number Voids 1 Output, 1570 Hemodialysis PATIENT WEIGHT: Weight (lb): 171 Weight (oz): 12.16 Weight (kg): 77.909 Medications Active Meds + DC'd Last 24 Hrs Vancomycin HCl 1,500 MG ONCE ONE IV (DC) Sodium Chloride 500 ML Miscellaneous Information 1 EACH ASDIR IV (CKD) Vancomycin HCl 1,000 MG ONCE ONE IV (CAN) Sodium Chloride 250 ML Lidocaine 1 PATCH DAILY TOPICAL Amitriptyline HCl 10 MG BEDTIME PO Triamcinolone Acetonide 40 MG PROCEDURE IM (CKD) Aspirin 81 MG DAILY PO Clopidogrel Bisulfate 75 MG DAILY PO Furosemide 40 MG DAILY PO Polyethylene Glycol 17 GM DAILY PO Senna 1 TAB DAILY PO (CKD) Venlafaxine HCl 75 MG DAILY PO Acetaminophen 650 MG Q6H PRN PRN PO Hydralazine HCl 10 MG Q6H PRN PRN PO Ondansetron HCl 4 MG TID PRN PRN SL Heparin Sodium 5,000 UNIT Q8H SUBQ Buspirone HCl 10 MG BEDTIME PO Epoetin Donny-epbx 4,000 UNIT TuThSa@2100 SUBQ Gabapentin 300 MG BEDTIME PO Levetiracetam 500 MG Q12HR PO (DC) Metoprolol Tartrate 25 MG BID PO Trazodone HCl 150 MG BEDTIME PO Hydrocodone Bitart/Acetaminophen 1 TAB Q4H PRN P RN PO Zolpidem Tartrate 5 MG BEDTIME PRN PRN PO Physical Exam General appearance: alert, awake Head/eyes: atraumatic, normocephalic Cardiovascular: regular rate and rhythm, pedal p ulses present Respiratory: clear to auscultation, normal breat h sounds Abdomen: normal bowel sounds, soft Extremities: no edema, Rt AKA Results Findings/Data: Laboratory Tests 05/21 0550 Chemistry Sodium (134 - 147 mEq/L) 137 Potassium (3.4 - 5.0 mEq/L) 3.6 Chloride (100 - 108 mEq/L) 97 L Carbon Dioxide (21 - 33 mEq/l) 32 Anion Gap (0 - 20) 11 BUN (7 - 18 mg/dL) 31 H Creatinine (0.6 - 1.3 mg/dL) 3.4 H Glomerular Filtr Rate (70 - 80) 17.8 L Glucose (70 - 110 mg/dL) 84 Calcium (8.0 - 10.5 mg/dL) 9.1 Laboratory Tests 05/21 0550 Hematology WBC (4.5 - 11.0 x10 3/uL) 12.3 H RBC (4.00 - 5.60 x10 6/uL) 3.09 L Hgb (12.5 - 16.9 g/dL) 8.9 L Hct (37.5 - 50.7 %) 28.3 L MCV (81.0 - 99.0 fL) 91.6 MCH (27.0 - 33.0 pg) 28.8 MCHC (33.0 - 37.0 g/dL) 31.4 L RDW (11.5 - 14.5 %) 14.4 Plt Count (150 - 400 x10 3/uL) 373 MPV (7.0 - 9.0 fL) 8.8 Neut % (Auto) (56.0 - 77.0 %) 74.4 Lymph % (Auto) (14.0 - 32.0 %) 9.4 L Dolores % (Auto) (4.8 - 9.0 %) 10.2 H Eos % (Auto) (0.3 - 3.7 %) 5.2 H Baso % (Auto) (0.0 - 2.0 %) 0.3 Neut # (Auto) (2.0 - 7.6 x10 3/uL) 9.13 H Lymph # (Auto) (1.0 - 3.8 x10 3/uL) 1.16 Dolores # (Auto) (0.1 - 0.8 x10 3/uL) 1.25 H Eos # (Auto) (0.0 - 0.2 x10 3/uL) 0.64 H Baso # (Auto) (0.0 - 0.2 x10 3/uL) 0.04 Abs Immat Gran (auto) (0.00 - 0.03 x10 3/uL) 0. 06 H Add Manual Diff NO Immature Gran % (0.0 - 2.0 %) 0.5 Nucleated RBC % (0 - 0 %) 0.0 Nucleated RBCs # (Man) (0.0 - 0.1 x10 3/uL) 0.0 0 Diagnosis, Assessment Plan Hospital course to date: 1. ESRD 2. AVF infiltration 3. Hypertension 4. Status post fall and acute SDH 5. Anemia of chronic kidney disease 6. Coronary artery disease Plan -HD MWF. HD today, but access got infilt rated and had only 2 hrs of hd. HD for 1.5 hrs tomorrow. -Blood pressure currently stable -Renal diet -Hemoglobin better. On Epogen 3 times weekly -Phos has been stable. -Rehab f/u. Free Text A P: 1. ESRD 2. AVF infiltration 3. Hypertension 4. Status post fall and acute SDH 5. Anemia of chronic kidney disease 6. Coronary artery disease Plan -HD MWF. Had HD for only 2hrs yesterday due to AVF infiltration. HD done today for 1.5 hrs. -Blood pressure currently stable -Renal diet -Hemoglobin better. On Epogen 3 times weekly -Phos has been stable. -Rehab f/u. at 1642 RPT #:[id number] END OF REPORT 2020-05-21 11:58:00-00:00 [facility] ([facility]) Pharmacy Prog.Note-Vancomycin REPORT#:[id number] REPORT STATUS: Signed DATE:05/21/20 TIME: 1158 PATIENT: DARIEN GROSSMAN UNIT #: [id number] ROOM/BED: [place] [address] : 45 AGE: 74 SEX: M ATTEND: Rosa Curtis MD ADM AUTHOR: Jany Vargas [facility] * ALL edits or amendments must be made on the C-Note/computer document * Vancomycin Vancomycin Goal trough: 19-25 mcg/mL (pre-HD) Indication for treatment: SSTI Current therapy: New start Day of therapy: Weight: Actual weight (kg): 78 VS and I/O: Vital Signs Date Temp Pulse Resp B/P B/P Mean Pulse Ox FiO2 05/19-05/21 97.3-98.6 60-78 14-20 111-158/57-73 75.2-101.3 90-96 72 hours ending at 0700 05/21 0705/20 1900 05/20 1900 05/18 0700 1900 Intake 120 120 Total Output 1570 Total Balance -1450 120 Intake, 120 120 Oral Number 1 1 Voids Output, 1570 Hemodialys is Patient 77.909 kg Weight Weight Bed scale Measuremen t Method 72 Hour I O Total 05/21 0700 05/19 07 Intake Total 120 120 Output Total 1570 Balance -1450 120 Labs: Laboratory Test : 05/21 0550 Chemistry BUN (7 - 18 mg/dL) 31 H Creatinine (0.6 - 1.3 mg/dL) 3.4 H Hematology WBC (4.5 - 11.0 x10 3/uL) 12.3 H Microbiology: 05/21 1143 WND OTHER: Gram Stain - ORD 05/21 0445 LEG: Wound Culture - RECD 05/20 529 NASAL: MRSA DNA Surveillance Screen - COMP Treatment plan: consult, initiation of therapy Regimen: Mr. Grossman is a 74 year-old male with PMH of CAD on Plavix, end-stage renal disease (on HD MWF), and dys lipidemia. Per Dr. Curtis's note from 05/21, there is concern for wound dehiscence and possible inf ection at the patient's right AKA site. Pharmacy has been consulted to manage vancomycin. Consulting MD: Dr. Ramirez Indication: SSTI Trough goal: 19-25 mcg/mL (pre-HD) 05/21 A P: 1. Vitals - Afebrile, BP stable, satting 91% on room air. 2. Labs - WBC 12.3, ESR pend ing, CRP pending, ESRD on HD MWF (HD session on 05/20 got interrupted after 2 hours due to acc ess infiltration, planning to complete additional 1.5 hours of HD today per nephrology MD note). 3. Micro - MRSA nares: negative. AKA wound cx: p ending. 4. Imaging - None. 5. Dosing Monitoring - Per discussion with ADRIEN tello, patient will be going down for HD at 1300 today. S cheduled a one-time dose of vancomycin 1500mg IV to be given immediately post-HD today. Will plan to re-dose again post-HD on Saturday. Thank you for the consult. Pharmacy will continu e to follow. Electronically Signed by Jany Vargas [facility] on 12/01 at 1218 RPT #:[id number] END OF REPORT 2020-05-21 11:43:00-00:00 [facility] ([facility]) Clinical Note REPORT#:[id number] REPORT STATUS: Signed DATE:05/21/20 TIME: 1143 PATIENT: DARIEN GROSSMAN UNIT #: [id number] ROOM/BED: [place] [address] : 45 AGE: 74 SEX: M ATTEND: Rosa Curtis MD ADM AUTHOR: Zee Ramirez MD * ALL edits or amendments must be made on the C-Note/Above All Software document * Clinical Note Note: pt seen ,examined,dictation to follow Electronically Signed by Zee Ramirez MD on at 2035 RPT #:[id number] END OF REPORT 2020-05-21 10:22:00-00:00 [facility] ([facility]) Pain Management Progress Note REPORT#:[id number] REPORT STATUS: Signed DATE:05/21/20 TIME: 1022 PATIENT: DARIEN GROSSMAN UNIT #: [id number] ROOM/BED: [place] [address] : 45 AGE: 74 SEX: M ATTEND: Rosa Curtis MD ADM AUTHOR: Dusty Smiley MONOGRAM MAKER * ALL edits or amendments must be made on the C-Note/Above All Software document * Subjective Chief complaint: Patient seen and examined. Chart and MAR greg d. Patient being seen for Left thigh pain, lateral femoral cutaneous neuralgia, Right lower extremity pain, stump pain, Peripheral neuropathy, phantom limb pain right lower extremity, Patient continues to have the left leg p ain. He is concerned that something is wrong with his left hip or f emur. He wants a hip xray before we proceed with the lateral femoral cutaneous nerve block. Patient states symptoms are manageable with use of current medications. No fever/chills, chest pain, dyspnea, no emesis, pruritus, or hallucinations. 14-point ROS undertaken unremarkable except as n oted. Objective General VS/I O: Vital Signs Date Temp Pulse Resp B/P B/P Mean Pulse Ox FiO2 05/20-05/21 97.3-97.9 60-78 14-20 127-158/64-73 84.9-101.3 90-95 Last Documented: Result Date Time Pulse Ox 91 05/21 832 B/P 150/66 05/21 08 B/P Mean 93.6 05/22 0733 Temp 97.9 05/21 832 Pulse 70 05/21 832 Resp 20 05/21 832 O2 Delivery Room air 05/20 0005 24 hour I O ending at 0700: 05/21 0700 05/20 1900 Intake Total 120 Output Total 1570 Balance -1450 Intake, Oral 120 Number Voids 1 Output, 1570 Hemodialysis PATIENT WEIGHT: Weight (lb): 171 Weight (oz): 12.16 Weight (kg): 77.909 Medications: Active Meds + DC'd Last 24 Hrs Vancomycin HCl 1,500 MG ONCE ONE IV (DC) Sodium Chloride 500 ML Miscellaneous Information 1 EACH ASDIR IV (CKD) Vancomycin HCl 1,000 MG ONCE ONE IV (CAN) Sodium Chloride 250 ML Lidocaine 1 PATCH DAILY TOPICAL Amitriptyline HCl 10 MG BEDTIME PO Triamcinolone Acetonide 40 MG PROCEDURE IM (CKD) Aspirin 81 MG DAILY PO Clopidogrel Bisulfate 75 MG DAILY PO Furosemide 40 MG DAILY PO Polyethylene Glycol 17 GM DAILY PO Senna 1 TAB DAILY PO (CKD) Venlafaxine HCl 75 MG DAILY PO Acetaminophen 650 MG Q6H PRN PRN PO Hydralazine HCl 10 MG Q6H PRN PRN PO Ondansetron HCl 4 MG TID PRN PRN SL Heparin Sodium 5,000 UNIT Q8H SUBQ Buspirone HCl 10 MG BEDTIME PO Epoetin Donny-epbx 4,000 UNIT TuThSa@2100 SUBQ Gabapentin 300 MG BEDTIME PO Levetiracetam 500 MG Q12HR PO (DC) Metoprolol Tartrate 25 MG BID PO Trazodone HCl 150 MG BEDTIME PO Hydrocodone Bitart/Acetaminophen 1 TAB Q4H PRN P RN PO Zolpidem Tartrate 5 MG BEDTIME PRN PRN PO Physical Exam General appearance: alert, awake, oriented, no a cute distress Head/eyes: atraumatic, normocephalic, normal con junctiva/sclera ENT: normal pharynx, moist mucosal membranes Neck: full range of motion, non-tender, supple/n o meningismus Cardiovascular: regular rate rhythm Respiratory: clear to auscultation, no distress Abdomen quadrants LLQ normal bowel sounds, LUQ normal roberto l sounds, RLQ normal bowel sounds, RUQ normal bowel sounds Extremities: moves all, no edema, pedal pulses Neuro/CUSTODIAN MANAGER: no motor deficits, no sensory deficit s, CNII-XII grossly intact Skin: dry, intact, no rash Results Findings/data: Laboratory Tests: 05/21 0550 Chemistry Sodium (134 - 147 mEq/L) 137 Potassium (3.4 - 5.0 mEq/L) 3.6 Chloride (100 - 108 mEq/L) 97 L Carbon Dioxide (21 - 33 mEq/l) 32 Anion Gap (0 - 20) 11 BUN (7 - 18 mg/dL) 31 H Creatinine (0.6 - 1.3 mg/dL) 3.4 H Glomerular Filtr Rate (70 - 80) 17.8 L Glucose (70 - 110 mg/dL) 84 Calcium (8.0 - 10.5 mg/dL) 9.1 Hematology WBC (4.5 - 11.0 x10 3/uL) 12.3 H RBC (4.00 - 5.60 x10 6/uL) 3.09 L Hgb (12.5 - 16.9 g/dL) 8.9 L Hct (37.5 - 50.7 %) 28.3 L MCV (81.0 - 99.0 fL) 91.6 MCH (27.0 - 33.0 pg) 28.8 MCHC (33.0 - 37.0 g/dL) 31.4 L RDW (11.5 - 14.5 %) 14.4 Plt Count (150 - 400 x10 3/uL) 373 MPV (7.0 - 9.0 fL) 8.8 Neut % (Auto) (56.0 - 77.0 %) 74.4 Lymph % (Auto) (14.0 - 32.0 %) 9.4 L Dolores % (Auto) (4.8 - 9.0 %) 10.2 H Eos % (Auto) (0.3 - 3.7 %) 5.2 H Baso % (Auto) (0.0 - 2.0 %) 0.3 Neut # (Auto) (2.0 - 7.6 x10 3/uL) 9.13 H Lymph # (Auto) (1.0 - 3.8 x10 3/uL) 1.16 Dolores # (Auto) (0.1 - 0.8 x10 3/uL) 1.25 H Eos # (Auto) (0.0 - 0.2 x10 3/uL) 0.64 H Baso # (Auto) (0.0 - 0.2 x10 3/uL) 0.04 Abs Immat Gran (auto) (0.00 - 0.03 x10 3/uL) 0. 06 H Add Manual Diff NO Immature Gran % (0.0 - 2.0 %) 0.5 Nucleated RBC % (0 - 0 %) 0.0 Nucleated RBCs # (Man) (0.0 - 0.1 x10 3/uL) 0. 00 Microbiology: Date/Time Procedure - Status Source Growth 05/21 1143 Gram Stain - ORD WND OTHER 05/21 0545 Wound Culture - RECD LEG Diagnosis, Assessment Plan Free text A P: A/P: Patient is a 74 year old male presenting with: Left thigh pain, lateral femoral cutaneous neura lgia -We will perform a left lateral femoral cutaneou s nerve block to see if this helps with the pain -Lidoderm patch to left thigh daily -Otis 10/325 mg oral every 4 hours as needed fo r pain -manageable Right lower extremity pain, stump pain -Pain medications as outlined above Peripheral neuropathy, phantom limb pain right l ower extremity -Gabapentin 300 mg oral at bedtime -amitriptyline 10 mg oral at bedtime -stable Antalgic/impaired gait -PT/OT -Gait training, improve endurance and strength -Transfer training -PMR following End-stage renal disease on hemodialysis -Nephrology following Subdural hematoma -Monitor mental status with opioids and other se dative medications Past medical history: Subdural hematoma, CAD, en d-stage renal disease on HD, hyperlipidemia, septic arthr itis of prosthesis of previous right TKA, depression Past surgical history: Right TKR, right AKA, cor onary stents Social history: Negative for alcohol, tobacco, i llicit drug use Family history: Not relevant All pertinent diagnostics/labs from the last 24 hours and during the course of the admission were reviewed. Plan discussed with the patient and the nurse. A ll questions were answered. Patient will be monitored for deleteriou s side effects associated with opioids and sedative medications. Me dications will be adjusted further clinical course. Risks versus benefits of opioid medications were reviewed to include, but not limited to respiratory depression, accid ental overdose, altered mental status, sudden , constipation which could result in bowel obstruction, seizures, withdrawal, dependency/addiction, risk for falls . Goals: Daily pain control. Case discussed with Dr Lofton whom agrees. 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: Total Prescriptions 28 Total Private Pay 0 Total Prescribers 4 Total Pharmacies 1 05/06/2020 1 05/06/2020 HYDROCODONE-ACETAMIN 10- 325 MG 30.0 7 [facility] SPA [id number] [facility] ([id number]) 0 42.86 MME Comm Ins [place] 04/20/2020 1 12/24/2019 ZOLPIDEM TARTRATE 10 MG TABLET 30.0 30 PE LAT [id number] [facility] ([id number]) 4 Comm Ins [place] 03/21/2020 1 12/24/2019 ZOLPIDEM TARTRATE 10 MG TABLET 30.0 30 PE LAT [id number] [facility] ([id number]) 3 Comm Ins [place] 02/20/2020 1 12/24/2019 ZOLPIDEM TARTRATE 10 MG TABLET 30.0 30 PE LAT [id number] [facility] (1602) 2 Comm Ins [place] 01/21/2020 1 12/24/2019 ZOLPIDEM TARTRATE 10 MG TABLET 30.0 30 PE LAT [id number] [facility] (1602) 1 [place] 12/24/2019 1 12/24/2019 ZOLPIDEM TARTRATE 10 MG TABLET 30.0 30 PE LAT [id number] [facility] (1602) 0 [place] Ins [place] 11/25/2019 1 07/07/2019 ZOLPIDEM TARTRATE 10 MG TABLET 30.0 30 PE LAT [id number] [facility] (1602) 5 [place] Ins [place] [id number] ([id number]) [address] [place] [address] at 1643 RPT #:[id number] END OF REPORT 2020-05-21 10:22:00-00:00 [facility] ([facility]) Pain Management Progress Note REPORT#:[id number] REPORT STATUS: Signed DATE:05/21/20 TIME: 1022 PATIENT: DARIEN GROSSMAN UNIT #: [id number] ROOM[facility]BED: [facility] : 45 AGE: 74 SEX: M ATTEND: Rosa Curtis MD ADM AUTHOR: Dusty Smiley NP * ALL edits or amendments must be made on the el ectronic/computer document * Subjective Chief complaint: Patient seen and examined. Chart and VIJAYA reyes Patient being seen for Left thigh pain, lateral femoral cutaneous neuralgia, Right lower extremity pain, stump pain, Peripheral neuropathy, phantom limb pain right lower extremity, Patient continues to have the left leg p ain. He is concerned that something is wrong with his left hip or f emur. He wants a hip xray before we proceed with the lateral femoral cutaneous nerve block. Patient states symptoms are manageable with use of current medications. No fever/chills, chest pain, dyspnea, no emesis, pruritus, or hallucinations. 14-point ROS undertaken unremarkable except as n oted. Objective General VS/I O: Vital Signs Date Temp Pulse Resp B/P B/P Mean Pulse Ox FiO2 05/20-05/21 97.3-97.9 60-78 14-20 127-158/64-73 84.9-101.3 90-95 Last Documented: Result Date Time Pulse Ox 91 05/21 0833 B/P 150/66 05/21 0833 B/P Mean 93.6 05/21 0833 Temp 97.9 05/21 0833 Pulse 70 05/21 0833 Resp 20 05/21 0833 O2 Delivery Room air 05/20 0005 24 hour I O ending at 0700: 05/21 0700 05/20 1900 Intake Total 120 Output Total 1570 Balance -1450 Intake, Oral 120 Number Voids 1 Output, 1570 Hemodialysis PATIENT WEIGHT: Weight (lb): 171 Weight (oz): 12.16 Weight (kg): 77.909 Medications: Active Meds + DC'd Last 24 Hrs Vancomycin HCl 1,500 MG ONCE ONE IV (DC) Sodium Chloride 500 ML Miscellaneous Information 1 EACH ASDIR IV (CKD) Vancomycin HCl 1,000 MG ONCE ONE IV (CAN) Sodium Chloride 250 ML Lidocaine 1 PATCH DAILY TOPICAL Amitriptyline HCl 10 MG BEDTIME PO Triamcinolone Acetonide 40 MG PROCEDURE IM (CKD) Aspirin 81 MG DAILY PO Clopidogrel Bisulfate 75 MG DAILY PO Furosemide 40 MG DAILY PO Polyethylene Glycol 17 GM DAILY PO Senna 1 TAB DAILY PO (CKD) Venlafaxine HCl 75 MG DAILY PO Acetaminophen 650 MG Q6H PRN PRN PO Hydralazine HCl 10 MG Q6H PRN PRN PO Ondansetron HCl 4 MG TID PRN PRN SL Heparin Sodium 5,000 UNIT Q8H SUBQ Buspirone HCl 10 MG BEDTIME PO Epoetin Donny-epbx 4,000 UNIT TuThSa@2100 SUBQ Gabapentin 300 MG BEDTIME PO Levetiracetam 500 MG Q12HR PO (DC) Metoprolol Tartrate 25 MG BID PO Trazodone HCl 150 MG BEDTIME PO Hydrocodone Bitart/Acetaminophen 1 TAB Q4H PRN P RN PO Zolpidem Tartrate 5 MG BEDTIME PRN PRN PO Physical Exam General appearance: alert, awake, oriented, no a cute distress Head/eyes: atraumatic, normocephalic, normal con junctiva/sclera ENT: normal pharynx, moist mucosal membranes Neck: full range of motion, non-tender, supple/n o meningismus Cardiovascular: regular rate rhythm Respiratory: clear to auscultation, no distress Abdomen quadrants LLQ normal bowel sounds, LUQ normal roberto l sounds, RLQ normal bowel sounds, RUQ normal bowel sounds Extremities: moves all, no edema, pedal pulses Neuro/CUSTODIAN MANAGER: no motor deficits, no sensory deficit s, CNII-XII grossly intact Skin: dry, intact, no rash Results Findings/data: Laboratory Tests: 05/21 0550 Chemistry Sodium (134 - 147 mEq/L) 137 Potassium (3.4 - 5.0 mEq/L) 3.6 Chloride (100 - 108 mEq/L) 97 L Carbon Dioxide (21 - 33 mEq/l) 32 Anion Gap (0 - 20) 11 BUN (7 - 18 mg/dL) 31 H Creatinine (0.6 - 1.3 mg/dL) 3.4 H Glomerular Filtr Rate (70 - 80) 17.8 L Glucose (70 - 110 mg/dL) 84 Calcium (8.0 - 10.5 mg/dL) 9.1 Hematology WBC (4.5 - 11.0 x10 3/uL) 12.3 H RBC (4.00 - 5.60 x10 6/uL) 3.09 L Hgb (12.5 - 16.9 g/dL) 8.9 L Hct (37.5 - 50.7 %) 28.3 L MCV (81.0 - 99.0 fL) 91.6 MCH (27.0 - 33.0 pg) 28.8 MCHC (33.0 - 37.0 g/dL) 31.4 L RDW (11.5 - 14.5 %) 14.4 Plt Count (150 - 400 x10 3/uL) 373 MPV (7.0 - 9.0 fL) 8.8 Neut % (Auto) (56.0 - 77.0 %) 74.4 Lymph % (Auto) (14.0 - 32.0 %) 9.4 L Dolores % (Auto) (4.8 - 9.0 %) 10.2 H Eos % (Auto) (0.3 - 3.7 %) 5.2 H Baso % (Auto) (0.0 - 2.0 %) 0.3 Neut # (Auto) (2.0 - 7.6 x10 3/uL) 9.13 H Lymph # (Auto) (1.0 - 3.8 x10 3/uL) 1.16 Dolores # (Auto) (0.1 - 0.8 x10 3/uL) 1.25 H Eos # (Auto) (0.0 - 0.2 x10 3/uL) 0.64 H Baso # (Auto) (0.0 - 0.2 x10 3/uL) 0.04 Abs Immat Gran (auto) (0.00 - 0.03 x10 3/uL) 0. 06 H Add Manual Diff NO Immature Gran % (0.0 - 2.0 %) 0.5 Nucleated RBC % (0 - 0 %) 0.0 Nucleated RBCs # (Man) (0.0 - 0.1 x10 3/uL) 0.0 0 Microbiology: Date/Time Procedure - Status Source Growth 05/21 1143 Gram Stain - ORD WND OTHER 05/21 9524 Wound Culture - RECD LEG Diagnosis, Assessment Plan Free text A P: A/P: Patient is a 74 year old male presenting with: Left thigh pain, lateral femoral cutaneous neura lgia -We will perform a left lateral femoral cutaneou s nerve block to see if this helps with the pain -Lidoderm patch to left thigh daily -Otis 10/325 mg oral every 4 hours as needed fo r pain -manageable Right lower extremity pain, stump pain -Pain medications as outlined above Peripheral neuropathy, phantom limb pain right l ower extremity -Gabapentin 300 mg oral at bedtime -amitriptyline 10 mg oral at bedtime -stable Antalgic/impaired gait -PT/OT -Gait training, improve endurance and strength -Transfer training -PMR following End-stage renal disease on hemodialysis -Nephrology following Subdural hematoma -Monitor mental status with opioids and other se dative medications Past medical history: Subdural hematoma, CAD, en d-stage renal disease on HD, hyperlipidemia, septic arthr itis of prosthesis of previous right TKA, depression Past surgical history: Right TKR, right AKA, cor onary stents Social history: Negative for alcohol, tobacco, i llicit drug use Family history: Not relevant All pertinent diagnostics/labs from the last 24 hours and during the course of the admission were reviewed. Plan discussed with the patient and the nurse. A ll questions were answered. Patient will be monitored for deleteriou s side effects associated with opioids and sedative medications. Me dications will be adjusted further clinical course. Risks versus benefits of opioid medications were reviewed to include, but not limited to respiratory depression, accid ental overdose, altered mental status, sudden , constipation which could result in bowel obstruction, seizures, withdrawal, dependency/addiction, risk for falls . Goals: Daily pain control. Case discussed with Dr Lofton whom agrees. 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: Total Prescriptions 28 Total Private Pay 0 Total Prescribers 4 Total Pharmacies 1 05/06/2020 1 05/06/2020 HYDROCODONE-ACETAMIN 10- 325 MG 30.0 7 [facility] [id number] [facility] (1602) 0 42.86 MME Comm Ins [place] 04/20/2020 1 12/24/2019 ZOLPIDEM TARTRATE 10 MG TABLET 30.0 30 PE LAT [id number] [facility] (1602) 4 Comm Ins [place] 03/21/2020 1 12/24/2019 ZOLPIDEM TARTRATE 10 MG TABLET 30.0 30 PE LAT [id number] [facility] (1602) 3 [place] Ins [place] 02/20/2020 1 12/24/2019 ZOLPIDEM TARTRATE 10 MG TABLET 30.0 30 PE LAT [id number] [facility] (1602) 2 [place] Ins [place] 01/21/2020 1 12/24/2019 ZOLPIDEM TARTRATE 10 MG TABLET 30.0 30 PE LAT [id number] [facility] (1602) 1 [place] 12/24/2019 1 12/24/2019 ZOLPIDEM TARTRATE 10 MG TABLET 30.0 30 PE LAT [id number] [facility] (1602) 0 [place] 11/25/2019 1 07/07/2019 ZOLPIDEM TARTRATE 10 MG TABLET 30.0 30 PE LAT [id number] [facility] (1602) 5 [place] Ins [place] [id number] ([id number]) [address] [place] [id number] at 1643 Electronically Signed by Herman Lofton MD on 0 05/22/20 at 1020 RPT #:[id number] END OF REPORT 2020-05-21 10:00:00-00:00 [facility] Progress Note REPORT#:[id number] REPORT STATUS: Signed DATE:05/21/20 TIME: 1000 PATIENT: DARIEN GROSSMNA UNIT #: [id number] ROOM/BED: [place] [address] : 45 AGE: 74 SEX: M ATTEND: Rosa Curtis MD ADM AUTHOR: Sekou Curtis MD * ALL edits or amendments must be made on the C-Note/Above All Software document * Subjective Chief complaint: Rehab follow-up Generalized weakness Doing well today Slightly tired at the therapy Slept well Right AKA wounds look better Working with therapist Eating fair Denies PATEL/N/V/D 14 systems reviewed and neg. except that above. Patient reports: No: shortness of breath, vomiting, constipation. Nursing reports: No: new events overnight. Objective General VS: Vital Signs: Date Time Temp Pulse Resp B/P B/P Pulse O2 O2 F low FiO2 Mean Ox Delivery Rate 05/21 832 97.9 70 20 150/66 93.6 91 05/21 0441 97.9 60 16 127/64 84.9 90 05/20 1944 97.3 78 14 158/73 101.3 95 PATIENT WEIGHT: Weight (lb): 171 Weight (oz): 12.16 Weight (kg): 77.909 Medications: Active Meds + DC'd Last 24 Hrs Lidocaine 1 PATCH DAILY TOPICAL Amitriptyline HCl 10 MG BEDTIME PO Triamcinolone Acetonide 40 MG PROCEDURE IM (CKD) Aspirin 81 MG DAILY PO Clopidogrel Bisulfate 75 MG DAILY PO Furosemide 40 MG DAILY PO Polyethylene Glycol 17 GM DAILY PO Senna 1 TAB DAILY PO (CKD) Venlafaxine HCl 75 MG DAILY PO Acetaminophen 650 MG Q6H PRN PRN PO Hydralazine HCl 10 MG Q6H PRN PRN PO Ondansetron HCl 4 MG TID PRN PRN SL Heparin Sodium 5,000 UNIT Q8H SUBQ Buspirone HCl 10 MG BEDTIME PO Epoetin Donny-epbx 4,000 UNIT TuThSa@2100 SUBQ (C KD) Gabapentin 300 MG BEDTIME PO Levetiracetam 500 MG Q12HR PO (DC) Metoprolol Tartrate 25 MG BID PO Trazodone HCl 150 MG BEDTIME PO Hydrocodone Bitart/Acetaminophen 1 TAB Q4H PRN P RN PO Zolpidem Tartrate 5 MG BEDTIME PRN PRN PO Nutrition assessment: BMI-25.4 Functional Progress Functional progress: - PT DAILY NOTE - - PT daily note comment: S: Pt REPORTS THAT HE IS NT SURE WHAT HAPPENED. "I DONT FEEL A LUMP ON MY HEAD" " IDONT REMEMBER FALLING" REPORTS RECENTLY HAD AKA AFTER BATTELING INFECTION AFTER KNEE SURGERY. O: Pt SEEN FOR 90 MIN OF PT. SUP<->SIT ON EOB W / SBA, LOSES BALANCE BACKWARDS IN SITTING WHEN TRYING TO SCOOT. TRANSFERS BED TO CHAIR W/ SQUAT PIVOT AND MIN A. W/C MOBILITY X 150'X3 W/ SBA. SIT TO COAL TOWER OPERATOR P BARS W/ SBA, SIT TO STAND AT RW W/ CGA. AMB W/ RW X 30' W/ SLOW CADANCE AND CGA. TRANSFERS BACK TO BE W/ MIN A USING STAND PIVOT TRANSFER. R RESIDUAL LIMB W/ INCREASED TACTILE SENSATIVITY, Pt EDUCATED O N DESENSITIZATION TECHNIQUES. THER EX TO B LE'S IN BED W/ SUES. EDUCATION ON REHAB PROCESS, FALL PREVENTI ON , USE OF BED AND CHAIR ALARMS. A: Pt PRESENTS WITH DECLINE IN GAIT AND MOBILIT Y, MILD CONFUSION, DECREASED SAFETY AWARENESS, FALLS, BALANCE DEFICITS. HE WILL BENEFIT FROM REHAB TO [facility] FOR SAFE RETURN HOME. P: CONT W/ PT - OT DAILY NOTE - - Transfers: MIN A Activities of daily living: COMPLETED FULL SHOW ER Cognition: FOLLOW COMPLEX COMMANDS OT daily note comment: PT PARTICIPATED 90 MIN S KILLED OT, PT COMPLETED FULL SHOWER, PT'S ADL REQ MAX A TO SPV. EDUCATED SAFETY AWARENESS ABOUT ADL, FALL PREC, 3 HOURS THERAPY IP REHAB. ASSISTED PT SUPINE TO BED, BED ALARM ON, ALL NEEDS IN REACH. CON'T SKILLED OT POC. 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 Expected discharge physical layout: One story Tub/shower combo External stairs Prior living situation: Home Living with: Alone Neurologic status: Alert Oriented to person Oriented to place Oriented to time Oriented to situation Follows complex commands Patient mood and behavior: Appropriate - - COGNITION - - Cognition attention: Outside functional limits Cognition orientation: Outside functional limits Cognition immediate recall: Within functional limits Cognition short term recall: Outside functiona l limits Cognition delayed recall: Outside functional limits Cognition insight: Outside functional limits Cognition basic problem solving: Within functio nal limits Cognition complex problem solving: Outside fun ctional limits Cognition safety: Outside functional limits Cognition social interaction: Within functiona l limits Cognition comment: PT COMPLETED THE MOCA W/A SC ORE OF , INDICATIVE OF MILD DEFICITS IN COGNITION. ON STRUCTURED ASSESSMENT, PT PRESENTED W/DEFICI TS IN ATTENTION, PARTICULARY SERIAL SUBTRACTION (ONL Y INITIAL ITEM CORRECT 1/5). DEFICITS IN DELAYED RECALL ALSO NOTED, W/ 3/5 ITEMS RECALED AFTER DELAY. PT STATED THAT HE USED A MENTAL PICTURE STRATEGY OF A CAR W/EACH ITEM ON A CAR PART TO ASSIST HIS WORKING MEMORY. ORIENTATION: PT ORIENTED TO YEAR AND NAME OF HOSPITAL, HOWEVER STATED THAT THE MONTH WAS "DECEMBER," A ND APPEARED UNAWARE OF HIS ERROR. PT MAY HAVE MILD SUBSTITUTION AND EXPRESSION DEFICITS D/T LEFT HEMISPHERE SDH. PT STATED THAT HE RECALLS ALL THE EVENTS OF HIS CURRENT COURSE OF ILNESS, HOWEVER NOTED TO PROVIDE THE WRONG DATE FOR AKA, WHICH IS STATED 04/03/20 IN [employer] ; PT STATED 03/22/20. AGAIN CONSIDER POSSIBLE WORD RECAL SUBSTITUTIO N DEFICITS; HOWEVER COGNITION IS ALSO LIKELY A FACTOR. PER PHYSICAL THERAPY, PT STATED INITIALLY THAT HE LIVES W/HIS ; AND THEN LATER THAT HE DOES NOT HAV E A . PT WILL BENEFIT FROM ONOGING ASSESSMENT FOR HIG H LEVEL COGNITION AND IADLS, HE CURRENTLY MANAGES H IS BILLS AND PILLS AT HOME. VS SKILLS/EF WERE WFL ON THIS EVALUATION WHICH APPEARS TO BE A RELATIVE STRENGTH. 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 Physical Exam General appearance: alert, awake, oriented Psych: alert, normal affect, oriented x 3 HEENT: anicteric, mucosal membranes moist, pupil s reactive to light, sclera clear, NC/AT Neck: non-tender, supple, no JVD Cardiovascular: regular rate rhythm, S1/S2, no m urmur Respiratory: aerating well, clear bilaterally, c lear to auscultation Abdomen: bowel sounds presen t, non-distended, soft, non-tender, no mass palpable Skin: dry, normal temperature, L AKA incision w 2 open areas of dehiscence-no drainage, no odor. Musculoskeletal - general: Musculoskeletal - general: normal tone, no swel ling, MMT moves all against gravity. BUE 4/5, SHORT PIECE HANDLER GOOD, RHF 3+/5, LLE 4/5. L calf NT, No cords. TTP L lateral thigh above trochanter bursae. Neuro/CUSTODIAN MANAGER: alert, oriented X 3, CNII-XII intact, normal speech, reflexes equal bilat Results Findings/Data: Laboratory Tests: 05/21 0550 Chemistry Sodium (134 - 147 mEq/L) 137 Potassium (3.4 - 5.0 mEq/L) 3.6 Chloride (100 - 108 mEq/L) 97 L Carbon Dioxide (21 - 33 mEq/l) 32 Anion Gap (0 - 20) 11 BUN (7 - 18 mg/dL) 31 H Creatinine (0.6 - 1.3 mg/dL) 3.4 H Glomerular Filtr Rate (70 - 80) 17.8 L Glucose (70 - 110 mg/dL) 84 Calcium (8.0 - 10.5 mg/dL) 9.1 Hematology WBC (4.5 - 11.0 x10 3/uL) 12.3 H RBC (4.00 - 5.60 x10 6/uL) 3.09 L Hgb (12.5 - 16.9 g/dL) 8.9 L Hct (37.5 - 50.7 %) 28.3 L MCV (81.0 - 99.0 fL) 91.6 MCH (27.0 - 33.0 pg) 28.8 MCHC (33.0 - 37.0 g/dL) 31.4 L RDW (11.5 - 14.5 %) 14.4 Plt Count (150 - 400 x10 3/uL) 373 MPV (7.0 - 9.0 fL) 8.8 Neut % (Auto) (56.0 - 77.0 %) 74.4 Lymph % (Auto) (14.0 - 32.0 %) 9.4 L Dolores % (Auto) (4.8 - 9.0 %) 10.2 H Eos % (Auto) (0.3 - 3.7 %) 5.2 H Baso % (Auto) (0.0 - 2.0 %) 0.3 Neut # (Auto) (2.0 - 7.6 x10 3/uL) 9.13 H Lymph # (Auto) (1.0 - 3.8 x10 3/uL) 1.16 Dolores # (Auto) (0.1 - 0.8 x10 3/uL) 1.25 H Eos # (Auto) (0.0 - 0.2 x10 3/uL) 0.64 H Baso # (Auto) (0.0 - 0.2 x10 3/uL) 0.04 Abs Immat Gran (auto) (0.00 - 0.03 x10 3/uL) 0. 06 H Add Manual Diff NO Immature Gran % (0.0 - 2.0 %) 0.5 Nucleated RBC % (0 - 0 %) 0.0 Nucleated RBCs # (Man) (0.0 - 0.1 x10 3/uL) 0.0 0 Microbiology: 05/21 544 LEG: Wound Culture -pending Objective Comments Objective comments: Microbiology: 05/21 544 LEG: Wound Culture - RECD 05/20 529 NASAL: MRSA DNA Surveillance Screen - COMP Hematology: 05/21 05/20 0550 0535 Hematology WBC (4.5 - 11.0 x10 3/uL) 12.3 H 12.9 H Chemistry: 05/21 05/20 0550 0535 Chemistry Creatinine (0.6 - 1.3 mg/dL) 3.4 H 4.2 H 05/21 0700 05/20 2300 05/20 1500 Intake Total 120 Output Total 1570 Balance -1450 Intake, Oral 120 Number Voids 1 Output, 1570 Hemodialysis Diagnosis, Assessment Plan Problem List/A P: 1. Fall 2. Subdural hematoma 3. TBI (traumatic brain injury) 4. History of right above knee amputation 5. ESRD on dialysis 6. History of coronary artery disease 7. History of coronary angioplasty with inserti on of stent 8. HLD (hyperlipidemia) 9. Anemia of chronic disease 10. Frequent falls 11. Hypoalbuminemia 12. Leukocytosis 13. Limb pain 14. Impaired functional mobility, balance, gait , and endurance Free Text A P: Assessment: Mechanical fall TBI with SDH, no surgical intervention required Stable acute L parafalcine SDH extending into the L tentorium with min left to right midline shift 04/03-Recent right AKA, previous right TKA compli cated by infection Impaired mobility and gait Generalized weakness Frequent falls Phantom pain/residual limb pain ESRD on hemodialysis Hyperkalemia resolved History of CAD Hypertension HLD Anemia of chronic disease Right AKA wound dehiscence-does not appear to be infected Left lateral thigh pain Left thigh pain, lateral femoral cutaneous neura lgia Significant impairment in self-care and function al mobility Plan: -Comprehensive inpatient rehabilitation with physical, occupational and speech therapy 3 hours a day for 5 to 6 days per week-2 05/18 rehabilitation physician supervision-03/09 rehabilitat ion nursing care-Case management for safe discharge planning-Rehab MD to monitor comorbidities and f unctional progress. -Decubitus prevention-protective hydrating lotio n-turn every 2 hours-offload -Right AKA wound dehiscence- wound care consulted-Dr. Gilbert-for now Xeroform and Mepilex -Consult new life brace management/prosthetics -Strict fall and safety precaution -DVT prophylaxis-SCDs and subcutaneous heparin -GI prophylaxis-Protonix -Early mobilization-OOB to chair -Work on bed mobility, transfer training , ADLs, pre-gait and gait exercises as tolerable. 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 intake, check albumin 3.2 and prealbumin, dietary consult, protein supplements. -Await consultants input, internal medicine, nep hrology, pain management, ID, wound care -Domenica for a total of 7 days-to be completed to zuniga 05/21-completed -Continue right AKA incisional dressing care -Consult prosthetic [employer] for evaluation -Continue aspirin and Plavix-Lasix -History of depression/anxiety continue Carlyn Dixon -Monitor hemoglobin on Epogen -Hemodialysis as per nephrology-Saturday -Blood pressure currently stable on current medi cation -Renal diet -Elevated WBC-possible infec amado right NASEEM-culture wound pending-no fever-repeat CBC 05/21-given patient's history of staph infect ion prior will consult ID. Patient seen by ID-patient placed on vancomycin -Wound care came to see patient but patient was not in room-Dr. Gilbert will return -Labs reviewed-check CBC in a.m. -Continue current medication -GOALS: Supervision to modified independent -START BRAIN INJURY AND AMPUTATION IRF Patient Progress-W/C MOBILITY X 150'X3 W/ SBA. 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 AMB W/ RW X 30' W/ SL OW CADANCE AND CGA. PM R Please see team note. Plan and goals discussed with the patient. I agree with the teams finding ELOS- [14 days] DC DME TT 38 min>50% with discussing about progress, op en wounds to right AKA, ID consult, started on IV vancomycin, cultu res pending, wound care, rehab plan of care, goals, expectations, needs, and me dical issues, examination. MAR and EMR reviewed. All Questions answered. Plan discussed with: patient, nurse, interdisc c are team Rehab attestation: Face to face exam completed. Treatment plan disc ussed with patient. Meets continued stay criteria. Agree with interdiscipl inary treatment plan. Patient seen and examined by me personally. at 1331 RPT #:[id number] END OF REPORT 2020-05-21 02:55:00-00:00 [facility] ([facility]) Clinical Note REPORT#:[id number] REPORT STATUS: Signed DATE:05/21/20 TIME: 025 PATIENT: DARIEN GROSSMAN UNIT #: [id number] ROOM/BED: [place] [address] : 45 AGE: 74 SEX: M ATTEND: Rosa Curtis MD ADM AUTHOR: Shaila Gilbert * ALL edits or amendments must be made on the C-Note/Above All Software document * Clinical Note Note: Patient not in room when I went to see himm this morning. Will attampt to see him later today or tomorrow. at 0256 RPT #:[id number] END OF REPORT 2020-05-20 17:56:00-00:00 [facility] ([facility]) Rehab Indiv Overall POC REPORT#:[id number] REPORT STATUS: Signed DATE:05/20/20 TIME: 175 PATIENT: DARIEN GROSSMAN UNIT #: [id number] ROOM/BED: [place] [address] : 45 AGE: 74 SEX: M ATTEND: Rosa Curtis MD ADM AUTHOR: Sekou Curtis MD * ALL edits or amendments must be made on the C-Note/Above All Software document * Individualized Overall POC HPI Impairment group: brain dysfunction NOTE Document ONLY ONE Impairment Group Brain dysfunction: traumatic, closed injury Etiologic diagnosis: Subdural hematoma/TBI Medical Expected Course Expected DC destination: Expected DC destination: Home Problem List/A P: 1. Fall 2. Subdural hematoma 3. TBI (traumatic brain injury) 4. History of right above knee amputation (Onse t: 04/03/20) 5. ESRD on dialysis 6. History of coronary artery disease 7. History of coronary angioplasty with inserti on of stent 8. HLD (hyperlipidemia) 9. Anemia of chronic disease 10. Frequent falls 11. Hypoalbuminemia 12. Leukocytosis 13. Limb pain 14. Impaired functional mobility, balance, gait , and endurance Medical prognosis: good Medical prognosis details: pt motivation, family /caregiver support, D/C plan Med prognosis comment: Good Expected course of Tx: -Comprehensive inpatient rehabilitation with physical, occupational and speech therapy 3 hours a day for 5 to 6 days per week-2 05/18 rehabilitation physician supervision-03/09 rehabilitat ion nursing care-Case management for safe discharge planning-Rehab MD to monitor comorbidities and f unctional progress. -Decubitus prevention-protective hydrating lotio n-turn every 2 hours-offload -Right AKA wound dehiscence- wound care consulted-Dr. Gilbert-for now Xeroform and Mepilex -Consult new life brace management/prosthetics -Strict fall and safety precaution -DVT prophylaxis-SCDs and subcutaneous heparin -GI prophylaxis-Protonix -Early mobilization-OOB to chair -Work on bed mobility, transfer training , ADLs, pre-gait and gait exercises as tolerable. 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 intake, check albumin 3.2 and prealbumin, dietary consult, protein supplements. -Await consultants input, internal medicine, nep hrology, pain management, ID, wound care -Domenica for a total of 7 days-to be completed to zuniga 05/21 -Continue right AKA incisional dressing care -Consult [facility] for evaluation -Continue aspirin and Plavix-Lasix -History of depression/anxiety continue Vinod Dixonyrel -Monitor hemoglobin on Epogen -Hemodialysis as per nephrology-Saturday -Blood pressure currently stable on current medi cation -Renal diet -Elevated WBC-possible infec amado right NASEEM-culture wound-no fever-repeat CBC 05/21 -given patient's history of staph infection prio r will consult ID. -Continue current medication -ELOS: 14 days -GOALS: Supervision to modified independent -START BRAIN INJURY AND AMPUTATION IRF Functional Expected Course Functional expected course: The data set between the solid lines has been im ported from multidisciplinary team documentation: __ ANTICIPATED SERVICES IN ACUTE INPATIENT REHAB: DISCIPLINE Physical Therapy Occupational Therapy Speech Therapy INTENSITY (minutes/day) 90 90 30 FREQUENCY (days/week) 5 5 5 DURATION (# of days) 14 14 14 EXPECTED FUNCTIONAL OUTCOMES: CARE Rolling left and 6 right discharge goal: CARE Sitting to 6 lying discharge goal: CARE Lying to sitting on side of bed discharge goal: 6 CARE Sitting to 6 standing discharge goal: CARE Chair/bed to chair transfer discharge goal: 6 CARE Car transfer 6 discharge goal: CARE Walking 10 6 feet discharge goal: CARE Walking 50 feet with two turns discharge goal: 4 CARE Walking 150 feet discharge goal: 4 CARE Walking 10 feet on uneven surface discharge goal: 3 CARE 1 step (curb) 4 discharge goal: CARE 4 steps 3 discharge goal: CARE 12 steps 2 discharge goal: CARE Picking up 6 object discharge goal: CARE [place] 50 feet 6 with two turns discharge goal: CARE [place] 150 6 feet discharge goal: CARE Toileting hygiene Independent (6) discharge goal: CARE Transfer on/off toilet Independent (6) or commode discharge goal: Bowel function goal: PT WILL REMAIN CONTINENT FO R BOWEL FUNCTION DURING REHAB STAY Bladder function goal: PT WILL REMAIN CONTINENT FOR BLADDER FUNCTION DURING REHAB STAY CARE Eating discharge goal: Independent (6) CARE Oral hygiene Independent (6) discharge goal: CARE Shower/bathe Independent (6) self discharge goal: CARE Upper body Independent (6) dressing discharge goal: CARE Lower body Independent (6) dressing discharge goal: CARE Putting on/taking Independent (6) off footwear discharge goal: _ ELOS Attestation: Based upon the review of clinical staff recommendations of frequency, duration and intensity and individual assessment of this patient, I estimate the following: See H P Estimated length of stay: 14 MD Review/Recommendation Attestation: Based upon my physical evaluation of the patient and input from the interdisciplinary team members I have de veloped this interdisciplinary overall plan of care and determined the admission to the IRF is reasonable and necessary. at 0803 RPT #:[id number] END OF REPORT 2020-05-20 17:54:00-00:00 [facility] Nephrology Progress Note REPORT#:[id number] REPORT STATUS: Signed DATE:05/20/20 TIME: 1754 PATIENT: DARIEN GROSSMAN UNIT #: [id number] ROOM/BED: [place] [address] : 45 AGE: 74 SEX: M ATTEND: Rosa Curtis MD ADM AUTHOR: Merissa Dillon MD * ALL edits or amendments must be made on the C-Note/computer document * Subjective Chief Complaint: Patient seen and examined in dialysis. Access got infiltrated. Denies complaints Objective General VS/I O: Vital Signs: Date Time Temp Pulse Resp B/P B/P Pulse O2 O2 F low FiO2 Mean Ox Delivery Rate 05/20 194 97.3 78 14 158/73 101.3 95 05/20 0758 98.6 67 16 126/68 87.0 93 05/20 0005 97.9 65 14 111/57 75.2 93 Room air 24 hour I O ending at 0700: 05/20 0700 05/19 1900 Intake Total 120 Output Total Balance 120 Intake, Oral 120 Number Voids 1 Patient 77.909 kg Weight Weight Bed scale Measurement Method PATIENT WEIGHT: Weight (lb): 171 Weight (oz): 12.16 Weight (kg): 77.909 Medications Active Meds + DC'd Last 24 Hrs Lidocaine 1 PATCH DAILY TOPICAL Amitriptyline HCl 10 MG BEDTIME PO Triamcinolone Acetonide 40 MG PROCEDURE IM (CKD) Aspirin 81 MG DAILY PO Clopidogrel Bisulfate 75 MG DAILY PO Furosemide 40 MG DAILY PO Polyethylene Glycol 17 GM DAILY PO Senna 1 TAB DAILY PO (CKD) Venlafaxine HCl 75 MG DAILY PO Acetaminophen 650 MG Q6H PRN PRN PO Hydralazine HCl 10 MG Q6H PRN PRN PO Ondansetron HCl 4 MG TID PRN PRN SL Heparin Sodium 5,000 UNIT Q8H SUBQ Buspirone HCl 10 MG BEDTIME PO Epoetin Donny-epbx 4,000 UNIT TuThSa@2100 SUBQ (C KD) Gabapentin 300 MG BEDTIME PO Levetiracetam 500 MG Q12HR PO Metoprolol Tartrate 25 MG BID PO Trazodone HCl 150 MG BEDTIME PO Hydrocodone Bitart/Acetaminophen 1 TAB Q4H PRN P RN PO Zolpidem Tartrate 5 MG BEDTIME PRN PRN PO Physical Exam General appearance: alert, awake Head/eyes: atraumatic, normocephalic Cardiovascular: regular rate and rhythm, pedal p ulses present Respiratory: clear to auscultation, normal breat h sounds Abdomen: normal bowel sounds, soft Extremities: no edema, Rt AKA Results Findings/Data: Laboratory Tests 05/20 534 Chemistry Sodium (134 - 147 mEq/L) 134 Potassium (3.4 - 5.0 mEq/L) 3.8 Chloride (100 - 108 mEq/L) 96 L Carbon Dioxide (21 - 33 mEq/l) 30 Anion Gap (0 - 20) 12 BUN (7 - 18 mg/dL) 44 H Creatinine (0.6 - 1.3 mg/dL) 4.2 H Glomerular Filtr Rate (70 - 80) 13.9 L Glucose (70 - 110 mg/dL) 88 Calcium (8.0 - 10.5 mg/dL) 9.2 Total Bilirubin (0.0 - 1.0 mg/dL) 0.60 AST (15 - 37 IUnit/L) 14 L ALT (30 - 65 IUnit/L) 9 L Total Alk Phosphatase (20 - 125 IUnit/L) 104 Total Protein (6.4 - 8.2 g/dL) 6.9 Albumin (3.4 - 5.0 g/dL) 3.20 L Laboratory Tests 05/20 05 Hematology WBC (4.5 - 11.0 x10 3/uL) 12.9 H RBC (4.00 - 5.60 x10 6/uL) 3.11 L Hgb (12.5 - 16.9 g/dL) 9.0 L Hct (37.5 - 50.7 %) 28.2 L MCV (81.0 - 99.0 fL) 90.7 MCH (27.0 - 33.0 pg) 28.9 MCHC (33.0 - 37.0 g/dL) 31.9 L RDW (11.5 - 14.5 %) 14.5 Plt Count (150 - 400 x10 3/uL) 316 MPV (7.0 - 9.0 fL) 8.4 Neut % (Auto) (56.0 - 77.0 %) 75.0 Lymph % (Auto) (14.0 - 32.0 %) 7.0 L Dolores % (Auto) (4.8 - 9.0 %) 10.3 H Eos % (Auto) (0.3 - 3.7 %) 6.9 H Baso % (Auto) (0.0 - 2.0 %) 0.2 Neut # (Auto) (2.0 - 7.6 x10 3/uL) 9.64 H Lymph # (Auto) (1.0 - 3.8 x10 3/uL) 0.90 L Dolores # (Auto) (0.1 - 0.8 x10 3/uL) 1.32 H Eos # (Auto) (0.0 - 0.2 x10 3/uL) 0.89 H Baso # (Auto) (0.0 - 0.2 x10 3/uL) 0.03 Abs Immat Gran (auto) (0.00 - 0.03 x10 3/uL) 0. 08 H Add Manual Diff NO Immature Gran % (0.0 - 2.0 %) 0.6 Nucleated RBC % (0 - 0 %) 0.0 Nucleated RBCs # (Man) (0.0 - 0.1 x10 3/uL) 0.0 0 Microbiology Date/Time Procedure - Status Source Growth 05/20 0530 MRSA DNA Surveillance Screen - COMP NASAL Diagnosis, Assessment Plan Hospital course to date: 1. ESRD 2. AVF infiltration 3. Hypertension 4. Status post fall and acute SDH 5. Anemia of chronic kidney disease 6. Coronary artery disease Plan -HD MWF. HD today, but access got infilt rated and had only 2 hrs of hd. HD for 1.5 hrs tomorrow. -Blood pressure currently stable -Renal diet -Hemoglobin better. On Epogen 3 times weekly -Phos has been stable. -Rehab f/u. at 2305 RPT #:[id number] END OF REPORT 2020-05-20 16:08:00-00:00 [facility] Clinical Note REPORT#:[id number] REPORT STATUS: Signed DATE:05/20/20 TIME: 1608 PATIENT: DARIEN GROSSMAN UNIT #: [id number] ROOM/BED: [place] [address] : 45 AGE: 74 SEX: M ATTEND: Rosa Curtis MD ADM AUTHOR: Danny Keith MD * ALL edits or amendments must be made on the C-Note/computer document * Clinical Note Note: 74-year-old male Problem List/A P: 1. Fall 2. Subdural hematoma 3. TBI (traumatic brain injury) 4. History of right above knee amputation (Onse t: 04/03/20) 5. ESRD on dialysis 6. History of coronary artery disease 7. History of coronary angioplasty with inserti on of stent 8. HLD (hyperlipidemia) 9. Anemia of chronic disease 10. Frequent falls 11. Hypoalbuminemia 12. Leukocytosis 13. Limb pain 14. Impaired functional mobility, balance, gait , and endurance Plan We will continue with telemetry, BP control, gly cemic control, pain control, electrolyte control, DVT/GI prophylaxis, repeat labs. PT/OT/ST. Wound care. Electronically Signed by Danny Keith MD n 05/24/20 at 1406 RPT #:[id number] END OF REPORT 2020-05-20 14:26:00-00:00 [facility] ([facility]) History Physical - Adult REPORT#:[id number] REPORT STATUS: Signed DATE:05/20/20 TIME: 1426 PATIENT: DARIEN GROSSMAN UNIT #: [id number] ROOM/BED: [place] [address] : 45 AGE: 74 SEX: M ATTEND: Rosa Curtis MD ADM AUTHOR: Javier Meek MONOGRAM MAKER * ALL edits or amendments must be made on the C-Note/computer document * History of Present Illness HPI HPI: 74-year-old male with past medical history of co ronary artery disease status post PCI, end-stage renal disease, hyperlipidemi a, recent right AKA who was admitted to inpatient rehab improved to [facility] after a fall in rehab facility on March 15, 2020 and it was discover ed that patient had subdural hematoma. Patient has some m cristino loss. Patient has been having difficulty with balance since his AKA consequently is admitted t o inpatient rehab for comprehensive rehabilitation. We were asked to d o medical management. Patient's vital signs are stable Abnormal labs leukocytosis and anemia patient wi th renal failure on hemodialysis. History Past medical history: Reports: Coronary artery disease ( and stents 4 years ago). Additional medical history: ESRD, high cholesterol Additional surgical history: recent right AKA, previous right knee replacemen t complicated by infection Family history: Denies: CAD < 40 yrs old, Coagulopathy. Additional family history: he has a daughter and 2 sons but states they are not his surrogate decision makers. A family friend named Marin Anderson is the person he is currently designating Alcohol use: Denies EtOH use Drug use: Denies recreational drugs Smoking status: Smoking status for patients 13 years old or old er: Never Smoker Medication/Allergy-Vaccine Hx Allergies: Coded Allergies: shellfish derived (Severe, SWELLING 05/13/20) Iodine and Iodide Containing Produc (Mild, DIARR HEA 05/13/20) Uncoded Allergies: PINICILLIN (Mild, ITCHING 05/13/20) Ambulatory status: Wheelchair Review of Systems Constitutional: Denies: chills, fever. ENT: Denies: earache, nasal congestion, sore throat. Respiratory: Denies: hemoptysis, parox no cturnal dyspnea, pleurisy, pleuritic pain, pneumonia , SOB, wheezing. Cardiovascular: Denies: chest pain, palpitations. GI: Denies: abdominal pain, nausea, vomiting. : Denies: flank pain, frequency, hematuria. Musculoskeletal: Arthritis: Reports: right upper. Denies: left upper, left lower, right lower. Extremity pain: Reports: right lower. Neuro: Denies: change in LOC, confusion, dizziness, hea dache, lightheaded, numbness, seizure, slurred speech, spinning sensation, syn cope, unable to speak, vision change. Psych: Reports: depression. Physical Exam VS/I O Vital Signs: Date Time Temp Pulse Resp B/P B/P Pulse O2 O2 F low FiO2 Mean Ox Delivery Rate 05/20 0758 37.0 67 16 126/68 87.0 93 05/20 0005 36.6 65 14 111/57 75.2 93 Room air 05/19 1819 36.8 64 16 138/68 91.1 96 24 hour I O ending at 0700: 05/20 0700 05/19 1900 Intake Total 120 Output Total Balance 120 Intake, Oral 120 Number Voids 1 Patient 77.909 kg Weight Weight Bed scale Measurement Method PATIENT WEIGHT: Weight (lb): 171 Weight (oz): 12.16 Weight (kg): 77.909 General appearance: alert, awake, oriented Head/Eyes: atraumatic, EOMI, normocephalic Neck: non-tender, no JVD Cardiovascular: regular rate rhythm Respiratory: decreased breath sounds, no distres s, symmetric expansion Abdomen/GI: active bowel sounds, soft, non-tende r, no guarding, no rebound Extremities: decreased range of motion, moves al l Neuro/CUSTODIAN MANAGER: alert, oriented X 3, normal speech Skin: dry, intact Psychiatry: normal affect, normal judgment/insig ht, normal mood Results Findings/Data: Laboratory Tests: 05/20 0535 Chemistry Sodium (134 - 147 mEq/L) 134 Potassium (3.4 - 5.0 mEq/L) 3.8 Chloride (100 - 108 mEq/L) 96 L Carbon Dioxide (21 - 33 mEq/l) 30 Anion Gap (0 - 20) 12 BUN (7 - 18 mg/dL) 44 H Creatinine (0.6 - 1.3 mg/dL) 4.2 H Glomerular Filtr Rate (70 - 80) 13.9 L Glucose (70 - 110 mg/dL) 88 Calcium (8.0 - 10.5 mg/dL) 9.2 Total Bilirubin (0.0 - 1.0 mg/dL) 0.60 AST (15 - 37 IUnit/L) 14 L ALT (30 - 65 IUnit/L) 9 L Total Alk Phosphatase (20 - 125 IUnit/L) 104 Total Protein (6.4 - 8.2 g/dL) 6.9 Albumin (3.4 - 5.0 g/dL) 3.20 L Hematology WBC (4.5 - 11.0 x10 3/uL) 12.9 H RBC (4.00 - 5.60 x10 6/uL) 3.11 L Hgb (12.5 - 16.9 g/dL) 9.0 L Hct (37.5 - 50.7 %) 28.2 L MCV (81.0 - 99.0 fL) 90.7 MCH (27.0 - 33.0 pg) 28.9 MCHC (33.0 - 37.0 g/dL) 31.9 L RDW (11.5 - 14.5 %) 14.5 Plt Count (150 - 400 x10 3/uL) 316 MPV (7.0 - 9.0 fL) 8.4 Neut % (Auto) (56.0 - 77.0 %) 75.0 Lymph % (Auto) (14.0 - 32.0 %) 7.0 L Dolores % (Auto) (4.8 - 9.0 %) 10.3 H Eos % (Auto) (0.3 - 3.7 %) 6.9 H Baso % (Auto) (0.0 - 2.0 %) 0.2 Neut # (Auto) (2.0 - 7.6 x10 3/uL) 9.64 H Lymph # (Auto) (1.0 - 3.8 x10 3/uL) 0.90 L Dolores # (Auto) (0.1 - 0.8 x10 3/uL) 1.32 H Eos # (Auto) (0.0 - 0.2 x10 3/uL) 0.89 H Baso # (Auto) (0.0 - 0.2 x10 3/uL) 0.03 Abs Immat Gran (auto) (0.00 - 0.03 x10 3/uL) 0. 08 H Add Manual Diff NO Immature Gran % (0.0 - 2.0 %) 0.6 Nucleated RBC % (0 - 0 %) 0.0 Nucleated RBCs # (Man) (0.0 - 0.1 x10 3/uL) 0.0 0 Radiology data: Laboratory Tests 05/20/20534: [Embedded Image Not Available] Laboratory Tests 05/20 534 Chemistry Sodium (134 - 147 mEq/L) 134 Potassium (3.4 - 5.0 mEq/L) 3.8 Chloride (100 - 108 mEq/L) 96 L Carbon Dioxide (21 - 33 mEq/l) 30 Anion Gap (0 - 20) 12 BUN (7 - 18 mg/dL) 44 H Creatinine (0.6 - 1.3 mg/dL) 4.2 H Glomerular Filtr Rate (70 - 80) 13.9 L Glucose (70 - 110 mg/dL) 88 Calcium (8.0 - 10.5 mg/dL) 9.2 Total Bilirubin (0.0 - 1.0 mg/dL) 0.60 AST (15 - 37 IUnit/L) 14 L ALT (30 - 65 IUnit/L) 9 L Total Alk Phosphatase (20 - 125 IUnit/L) 104 Total Protein (6.4 - 8.2 g/dL) 6.9 Albumin (3.4 - 5.0 g/dL) 3.20 L Laboratory Tests 05/20 534 Hematology WBC (4.5 - 11.0 x10 3/uL) 12.9 H RBC (4.00 - 5.60 x10 6/uL) 3.11 L Hgb (12.5 - 16.9 g/dL) 9.0 L Hct (37.5 - 50.7 %) 28.2 L MCV (81.0 - 99.0 fL) 90.7 MCH (27.0 - 33.0 pg) 28.9 MCHC (33.0 - 37.0 g/dL) 31.9 L RDW (11.5 - 14.5 %) 14.5 Plt Count (150 - 400 x10 3/uL) 316 MPV (7.0 - 9.0 fL) 8.4 Neut % (Auto) (56.0 - 77.0 %) 75.0 Lymph % (Auto) (14.0 - 32.0 %) 7.0 L Dolores % (Auto) (4.8 - 9.0 %) 10.3 H Eos % (Auto) (0.3 - 3.7 %) 6.9 H Baso % (Auto) (0.0 - 2.0 %) 0.2 Neut # (Auto) (2.0 - 7.6 x10 3/uL) 9.64 H Lymph # (Auto) (1.0 - 3.8 x10 3/uL) 0.90 L Dolores # (Auto) (0.1 - 0.8 x10 3/uL) 1.32 H Eos # (Auto) (0.0 - 0.2 x10 3/uL) 0.89 H Baso # (Auto) (0.0 - 0.2 x10 3/uL) 0.03 Abs Immat Gran (auto) (0.00 - 0.03 x10 3/uL) 0. 08 H Add Manual Diff NO Immature Gran % (0.0 - 2.0 %) 0.6 Nucleated RBC % (0 - 0 %) 0.0 Nucleated RBCs # (Man) (0.0 - 0.1 x10 3/uL) 0.0 0 Microbiology Date/Time Procedure - Status Source Growth 05/20 529 MRSA DNA Surveillance Screen - COMP NASAL Microbiology: 05/20 1230 LEG: Wound Culture - ORD 05/20 529 NASAL: MRSA DNA Surveillance Screen - COMP Current Medications Sig/Tatum Start time Last Medication Dose Route Stop Time Status Admin Aspirin 81 MG DAILY 05/20 899 AC 05/20 PO 06/19 1300 0950 Clopidogrel Bisulfate 75 MG DAILY 05/20 899 AC 05/20 PO 06/19 1299 0951 Furosemide 40 MG DAILY 05/20 899 AC 05/20 PO 06/19 1299 0951 Polyethylene Glycol 17 GM DAILY 05/20 899 AC 0 05/20 PO 06/19 1300 0951 Senna 1 TAB DAILY 05/20 899 CKD 05/20 PO 06/19 1299 0951 Venlafaxine HCl 75 MG DAILY 05/20 899 AC 05/20 PO 06/19 1300 1013 Acetaminophen 650 MG Q6H PRN PRN 05/20 844 AC PO 06/20 843 Hydralazine HCl 10 MG Q6H PRN PRN 05/20 844 A C PO 06/20 843 Ondansetron HCl 4 MG TID PRN PRN 05/20 0845 AC SL 06/19 0844 Heparin Sodium 5,000 UNIT Q8H 05/19 2200 AC SUBQ 06/19 1300 0526 Buspirone HCl 10 MG BEDTIME 05/19 2100 AC 05/19 PO 06/19 1300 2147 Epoetin Donny-epbx 4,000 UNIT TuThSa@2100 05/19 2100 CKD 05/19 SUBQ 06/19 1300 2302 Gabapentin 300 MG BEDTIME 05/19 2100 AC 05/19 PO 06/19 1300 2148 Levetiracetam 500 MG Q12HR 05/19 2100 AC 05/20 PO 05/21 0600 0952 Metoprolol Tartrate 25 MG BID 05/19 2099 AC PO 06/19 1300 0951 Trazodone HCl 150 MG BEDTIME 05/19 2100 AC 8 PO 06/19 1300 2148 Hydrocodone Bitart/ 1 TAB Q4H PRN PRN 05/19 201 5 AC 05/20 Acetaminophen PO 07/20 1300 1014 Zolpidem Tartrate 5 MG BEDTIME PRN PRN 05/19 20 00 AC 05/19 PO 06/19 1300 2148 Diagnosis, Assessment Plan Free Text DxA P Notes Free Text DxA P Notes: Assessment: 1.Mechanical fall 2.Traumatic brain injury with subdural hematoma 3. Right AKA pulmonary 2020 4. IMpaired mobility/Impaired gait 5. History of depression 6. Generalized weakness 7. Phantom pain 8. End-stage renal disease on hemodialysis 3 day s a week 9. Anemia 10. History of coronary artery disease, hyperten willy, and hyperlipidemia Plan of care: -Continue with comprehensive inpatient rehabilit [facility] rehab team -Pain control -Fall precaution -DVT prophylaxis subcu heparin -GI prophylaxis patient currently on Protonix -Pain control as pain management -Seizure precaution patient on Keppra -Continues present medications -Monitor labs -Trend leukocytosis -Plan of care discussed with the patient, galina palma'lennox nurse, and Dr. Cavaozs. We thank Dr. Curtis for allowing us t o participate in the care of Mr. Grossman Electronically Signed by Javier Meek NP on 0 05/22/20 at 0503 RPT #:[id number] END OF REPORT 2020-05-20 14:26:00-00:00 [facility]ACL [facility] ([facility]) History Physical - Adult REPORT#:[id number] REPORT STATUS: Signed DATE:05/20/20 TIME: 1426 PATIENT: DARIEN GROSSMAN UNIT #: [id number] ROOM/BED: 508-1 : 45 AGE: 74 SEX: M ATTEND: Rosa Curtis MD ADM AUTHOR: Javier Meek NP * ALL edits or amendments must be made on the C-Note/computer document * See Addendum History of Present Illness HPI HPI: 74-year-old male with past medical history of co ronary artery disease status post PCI, end-stage renal disease, hyperlipidemi a, recent right AKA who was admitted to inpatient rehab improved to [facility] after a fall in rehab facility on March 15, 2020 and it was discover ed that patient had subdural hematoma. Patient has some m cristino loss. Patient has been having difficulty with balance since his AKA consequently is admitted t o inpatient rehab for comprehensive rehabilitation. We were asked to d o medical management. Patient's vital signs are stable Abnormal labs leukocytosis and anemia patient wi th renal failure on hemodialysis. History Past medical history: Reports: Coronary artery disease ( and stents 4 years ago). Additional medical history: ESRD, high cholesterol Additional surgical history: recent right AKA, previous right knee replacemen t complicated by infection Family history: Denies: CAD < 40 yrs old, Coagulopathy. Additional family history: he has a daughter and 2 sons but states they are not his surrogate decision makers. A family friend named Marin Anderson is the person he is currently designating Alcohol use: Denies EtOH use Drug use: Denies recreational drugs Smoking status: Smoking status for patients 13 years old or old er: Never Smoker Medication/Allergy-Vaccine Hx Allergies: Coded Allergies: shellfish derived (Severe, SWELLING 05/13/20) Iodine and Iodide Containing Produc (Mild, DIARR HEA 05/13/20) Uncoded Allergies: PINICILLIN (Mild, ITCHING 05/13/20) Ambulatory status: Wheelchair Review of Systems Constitutional: Denies: chills, fever. ENT: Denies: earache, nasal congestion, sore throat. Respiratory: Denies: hemoptysis, parox no cturnal dyspnea, pleurisy, pleuritic pain, pneumonia , SOB, wheezing. Cardiovascular: Denies: chest pain, palpitations. GI: Denies: abdominal pain, nausea, vomiting. : Denies: flank pain, frequency, hematuria. Musculoskeletal: Arthritis: Reports: right upper. Denies: left upper, left lower, right lower. Extremity pain: Reports: right lower. Neuro: Denies: change in LOC, confusion, dizziness, hea dache, lightheaded, numbness, seizure, slurred speech, spinning sensation, syn cope, unable to speak, vision change. Psych: Reports: depression. Physical Exam VS/I O Vital Signs: Date Time Temp Pulse Resp B/P B/P Pulse O2 O2 F low FiO2 Mean Ox Delivery Rate 05/20 0758 37.0 67 16 126/68 87.0 93 05/20 0005 36.6 65 14 111/57 75.2 93 Room air 05/19 1819 36.8 64 16 138/68 91.1 96 24 hour I O ending at 0700: 05/20 0700 05/19 1900 Intake Total 120 Output Total Balance 120 Intake, Oral 120 Number Voids 1 Patient 77.909 kg Weight Weight Bed scale Measurement Method PATIENT WEIGHT: Weight (lb): 171 Weight (oz): 12.16 Weight (kg): 77.909 General appearance: alert, awake, oriented Head/Eyes: atraumatic, EOMI, normocephalic Neck: non-tender, no JVD Cardiovascular: regular rate rhythm Respiratory: decreased breath sounds, no distres s, symmetric expansion Abdomen/GI: active bowel sounds, soft, non-tende r, no guarding, no rebound Extremities: decreased range of motion, moves al l Neuro/CUSTODIAN MANAGER: alert, oriented X 3, normal speech Skin: dry, intact Psychiatry: normal affect, normal judgment/insig ht, normal mood Results Findings/Data: Laboratory Tests: 05/20 0535 Chemistry Sodium (134 - 147 mEq/L) 134 Potassium (3.4 - 5.0 mEq/L) 3.8 Chloride (100 - 108 mEq/L) 96 L Carbon Dioxide (21 - 33 mEq/l) 30 Anion Gap (0 - 20) 12 BUN (7 - 18 mg/dL) 44 H Creatinine (0.6 - 1.3 mg/dL) 4.2 H Glomerular Filtr Rate (70 - 80) 13.9 L Glucose (70 - 110 mg/dL) 88 Calcium (8.0 - 10.5 mg/dL) 9.2 Total Bilirubin (0.0 - 1.0 mg/dL) 0.60 AST (15 - 37 IUnit/L) 14 L ALT (30 - 65 IUnit/L) 9 L Total Alk Phosphatase (20 - 125 IUnit/L) 104 Total Protein (6.4 - 8.2 g/dL) 6.9 Albumin (3.4 - 5.0 g/dL) 3.20 L Hematology WBC (4.5 - 11.0 x10 3/uL) 12.9 H RBC (4.00 - 5.60 x10 6/uL) 3.11 L Hgb (12.5 - 16.9 g/dL) 9.0 L Hct (37.5 - 50.7 %) 28.2 L MCV (81.0 - 99.0 fL) 90.7 MCH (27.0 - 33.0 pg) 28.9 MCHC (33.0 - 37.0 g/dL) 31.9 L RDW (11.5 - 14.5 %) 14.5 Plt Count (150 - 400 x10 3/uL) 316 MPV (7.0 - 9.0 fL) 8.4 Neut % (Auto) (56.0 - 77.0 %) 75.0 Lymph % (Auto) (14.0 - 32.0 %) 7.0 L Dolores % (Auto) (4.8 - 9.0 %) 10.3 H Eos % (Auto) (0.3 - 3.7 %) 6.9 H Baso % (Auto) (0.0 - 2.0 %) 0.2 Neut # (Auto) (2.0 - 7.6 x10 3/uL) 9.64 H Lymph # (Auto) (1.0 - 3.8 x10 3/uL) 0.90 L Dolores # (Auto) (0.1 - 0.8 x10 3/uL) 1.32 H Eos # (Auto) (0.0 - 0.2 x10 3/uL) 0.89 H Baso # (Auto) (0.0 - 0.2 x10 3/uL) 0.03 Abs Immat Gran (auto) (0.00 - 0.03 x10 3/uL) 0. 08 H Add Manual Diff NO Immature Gran % (0.0 - 2.0 %) 0.6 Nucleated RBC % (0 - 0 %) 0.0 Nucleated RBCs # (Man) (0.0 - 0.1 x10 3/uL) 0.0 0 Radiology data: Laboratory Tests 05/20/20 0535: [Embedded Image Not Available] Laboratory Tests 05/20 534 Chemistry Sodium (134 - 147 mEq/L) 134 Potassium (3.4 - 5.0 mEq/L) 3.8 Chloride (100 - 108 mEq/L) 96 L Carbon Dioxide (21 - 33 mEq/l) 30 Anion Gap (0 - 20) 12 BUN (7 - 18 mg/dL) 44 H Creatinine (0.6 - 1.3 mg/dL) 4.2 H Glomerular Filtr Rate (70 - 80) 13.9 L Glucose (70 - 110 mg/dL) 88 Calcium (8.0 - 10.5 mg/dL) 9.2 Total Bilirubin (0.0 - 1.0 mg/dL) 0.60 AST (15 - 37 IUnit/L) 14 L ALT (30 - 65 IUnit/L) 9 L Total Alk Phosphatase (20 - 125 IUnit/L) 104 Total Protein (6.4 - 8.2 g/dL) 6.9 Albumin (3.4 - 5.0 g/dL) 3.20 L Laboratory Tests 05/20 534 Hematology WBC (4.5 - 11.0 x10 3/uL) 12.9 H RBC (4.00 - 5.60 x10 6/uL) 3.11 L Hgb (12.5 - 16.9 g/dL) 9.0 L Hct (37.5 - 50.7 %) 28.2 L MCV (81.0 - 99.0 fL) 90.7 MCH (27.0 - 33.0 pg) 28.9 MCHC (33.0 - 37.0 g/dL) 31.9 L RDW (11.5 - 14.5 %) 14.5 Plt Count (150 - 400 x10 3/uL) 316 MPV (7.0 - 9.0 fL) 8.4 Neut % (Auto) (56.0 - 77.0 %) 75.0 Lymph % (Auto) (14.0 - 32.0 %) 7.0 L Dolores % (Auto) (4.8 - 9.0 %) 10.3 H Eos % (Auto) (0.3 - 3.7 %) 6.9 H Baso % (Auto) (0.0 - 2.0 %) 0.2 Neut # (Auto) (2.0 - 7.6 x10 3/uL) 9.64 H Lymph # (Auto) (1.0 - 3.8 x10 3/uL) 0.90 L Dolores # (Auto) (0.1 - 0.8 x10 3/uL) 1.32 H Eos # (Auto) (0.0 - 0.2 x10 3/uL) 0.89 H Baso # (Auto) (0.0 - 0.2 x10 3/uL) 0.03 Abs Immat Gran (auto) (0.00 - 0.03 x10 3/uL) 0. 08 H Add Manual Diff NO Immature Gran % (0.0 - 2.0 %) 0.6 Nucleated RBC % (0 - 0 %) 0.0 Nucleated RBCs # (Man) (0.0 - 0.1 x10 3/uL) 0.0 0 Microbiology Date/Time Procedure - Status Source Growth 05/20 529 MRSA DNA Surveillance Screen - COMP NASAL Microbiology: 05/20 1230 LEG: Wound Culture - ORD 05/20 529 NASAL: MRSA DNA Surveillance Screen - COMP Current Medications Sig/Tatum Start time Last Medication Dose Route Stop Time Status Admin Aspirin 81 MG DAILY 05/20 899 AC 05/20 PO 06/19 1299 0950 Clopidogrel Bisulfate 75 MG DAILY 05/20 899 AC 05/20 PO 06/19 1299 0951 Furosemide 40 MG DAILY 05/20 899 AC 05/20 PO 06/19 1299 0951 Polyethylene Glycol 17 GM DAILY 05/20 899 AC 0 05/20 PO 06/19 1299 0951 Senna 1 TAB DAILY 05/20 899 CKD 05/20 PO 06/19 1299 0951 Venlafaxine HCl 75 MG DAILY 05/20 899 AC 04/0 9 PO 06/19 1300 1013 Acetaminophen 650 MG Q6H PRN PRN 05/20 844 AC PO 06/19 0844 Hydralazine HCl 10 MG Q6H PRN PRN 05/20 0845 AC PO 06/19 0844 Ondansetron HCl 4 MG TID PRN PRN 05/20 0845 AC SL 06/19 0844 Heparin Sodium 5,000 UNIT Q8H 05/19 2200 AC SUBQ 06/19 1300 0526 Buspirone HCl 10 MG BEDTIME 05/19 2100 AC 05/19 PO 06/19 1300 2147 Epoetin Donny-epbx 4,000 UNIT TuThSa@2100 05/19 2100 CKD 05/19 SUBQ 06/19 1300 2302 Gabapentin 300 MG BEDTIME 05/19 2100 AC 05/19 PO 06/19 1300 2148 Levetiracetam 500 MG Q12HR 05/19 2099 AC 05/20 PO 05/21 0600 0952 Metoprolol Tartrate 25 MG BID 05/19 2099 AC PO 06/19 1300 0951 Trazodone HCl 150 MG BEDTIME 05/19 2100 AC PO 06/19 1300 2148 Hydrocodone Bitart/ 1 TAB Q4H PRN PRN 05/19 201 5 AC 05/20 Acetaminophen PO 07/20 1300 1014 Zolpidem Tartrate 5 MG BEDTIME PRN PRN 05/19 20 00 AC 05/19 PO 06/19 1300 2148 Diagnosis, Assessment Plan Free Text DxA P Notes Free Text DxA P Notes: Assessment: 1.Mechanical fall 2.Traumatic brain injury with subdural hematoma 3. Right AKA pulmonary 2020 4. IMpaired mobility/Impaired gait 5. History of depression 6. Generalized weakness 7. Phantom pain 8. End-stage renal disease on hemodialysis 3 day s a week 9. Anemia 10. History of coronary artery disease, hyperten willy, and hyperlipidemia Plan of care: -Continue with comprehensive inpatient rehabilit [facility] rehab team -Pain control -Fall precaution -DVT prophylaxis subcu heparin -GI prophylaxis patient currently on Protonix -Pain control as pain management -Seizure precaution patient on Keppra -Continues present medications -Monitor labs -Trend leukocytosis -Plan of care discussed with the patient, galina marcano nurse, and Dr. Cavazos. We thank Dr. Curtis for allowing us t o participate in the care of Mr. Grossman Electronically Signed by Javier Meek NP on 0 05/22/20 at 0503 Addendum 1: 05/22/20 050 by Javier Meek NP Please correct this is a consultation note and H P Electronically Signed by Javier Meek MONOGRAM MAKER on 0 05/22/20 at 0503 RPT #:[id number] END OF REPORT 2020-05-20 14:26:00-00:00 [facility]ACL [facility] ([facility]) History Physical - Adult REPORT#:[id number] REPORT STATUS: Signed DATE:05/20/20 TIME: 142 PATIENT: DARIEN GROSSMAN UNIT #: [id number] ROOM/BED: [place] [address] : 45 AGE: 74 SEX: M ATTEND: Rosa Curtis MD ADM AUTHOR: Javier Meek NP * ALL edits or amendments must be made on the C-Note/computer document * See Addendum Javier Meek 05/20/20 1426: History of Present Illness HPI HPI: 74-year-old male with past medical history of co ronary artery disease status post PCI, end-stage renal disease, hyperlipidemi a, recent right AKA who was admitted to inpatient rehab improved to [facility] after a fall in rehab facility on March 15, 2020 and it was discover ed that patient had subdural hematoma. Patient has some m cristino loss. Patient has been having difficulty with balance since his AKA consequently is admitted t o inpatient rehab for comprehensive rehabilitation. We were asked to d o medical management. Patient's vital signs are stable Abnormal labs leukocytosis and anemia patient wi th renal failure on hemodialysis. History Past medical history: Reports: Coronary artery disease ( and stents 4 years ago). Additional medical history: ESRD, high cholesterol Additional surgical history: recent right AKA, previous right knee replacemen t complicated by infection Family history: Denies: CAD < 40 yrs old, Coagulopathy. Additional family history: he has a daughter and 2 sons but states they are not his surrogate decision makers. A family friend named Marin Anderson is the person he is currently designating Alcohol use: Denies EtOH use Drug use: Denies recreational drugs Smoking status: Smoking status for patients 13 years old or old er: Never Smoker Medication/Allergy-Vaccine Hx Allergies: Coded Allergies: shellfish derived (Severe, SWELLING 05/13/20) Iodine and Iodide Containing Produc (Mild, DIARR HEA 05/13/20) Uncoded Allergies: PINICILLIN (Mild, ITCHING 05/13/20) Ambulatory status: Wheelchair Review of Systems Constitutional: Denies: chills, fever. ENT: Denies: earache, nasal congestion, sore throat. Respiratory: Denies: hemoptysis, parox no cturnal dyspnea, pleurisy, pleuritic pain, pneumonia , SOB, wheezing. Cardiovascular: Denies: chest pain, palpitations. GI: Denies: abdominal pain, nausea, vomiting. : Denies: flank pain, frequency, hematuria. Musculoskeletal: Arthritis: Reports: right upper. Denies: left upper, left lower, right lower. Extremity pain: Reports: right lower. Neuro: Denies: change in LOC, confusion, dizziness, hea dache, lightheaded, numbness, seizure, slurred speech, spinning sensation, syn cope, unable to speak, vision change. Psych: Reports: depression. Physical Exam VS/I O Vital Signs: Date Time Temp Pulse Resp B/P B/P Pulse O2 O2 F low FiO2 Mean Ox Delivery Rate 05/20 0758 37.0 67 16 126/68 87.0 93 05/20 0005 36.6 65 14 111/57 75.2 93 Room air 05/19 1819 36.8 64 16 138/68 91.1 96 24 hour I O ending at 0700: 05/20 0700 05/19 1900 Intake Total 120 Output Total Balance 120 Intake, Oral 120 Number Voids 1 Patient 77.909 kg Weight Weight Bed scale Measurement Method PATIENT WEIGHT: Weight (lb): 171 Weight (oz): 12.16 Weight (kg): 77.909 General appearance: alert, awake, oriented Head/Eyes: atraumatic, EOMI, normocephalic Neck: non-tender, no JVD Cardiovascular: regular rate rhythm Respiratory: decreased breath sounds, no distres s, symmetric expansion Abdomen/GI: active bowel sounds, soft, non-tende r, no guarding, no rebound Extremities: decreased range of motion, moves al l Neuro/CUSTODIAN MANAGER: alert, oriented X 3, normal speech Skin: dry, intact Psychiatry: normal affect, normal judgment/insig ht, normal mood Results Findings/Data: Laboratory Tests: 05/20 0535 Chemistry Sodium (134 - 147 mEq/L) 134 Potassium (3.4 - 5.0 mEq/L) 3.8 Chloride (100 - 108 mEq/L) 96 L Carbon Dioxide (21 - 33 mEq/l) 30 Anion Gap (0 - 20) 12 BUN (7 - 18 mg/dL) 44 H Creatinine (0.6 - 1.3 mg/dL) 4.2 H Glomerular Filtr Rate (70 - 80) 13.9 L Glucose (70 - 110 mg/dL) 88 Calcium (8.0 - 10.5 mg/dL) 9.2 Total Bilirubin (0.0 - 1.0 mg/dL) 0.60 AST (15 - 37 IUnit/L) 14 L ALT (30 - 65 IUnit/L) 9 L Total Alk Phosphatase (20 - 125 IUnit/L) 104 Total Protein (6.4 - 8.2 g/dL) 6.9 Albumin (3.4 - 5.0 g/dL) 3.20 L Hematology WBC (4.5 - 11.0 x10 3/uL) 12.9 H RBC (4.00 - 5.60 x10 6/uL) 3.11 L Hgb (12.5 - 16.9 g/dL) 9.0 L Hct (37.5 - 50.7 %) 28.2 L MCV (81.0 - 99.0 fL) 90.7 MCH (27.0 - 33.0 pg) 28.9 MCHC (33.0 - 37.0 g/dL) 31.9 L RDW (11.5 - 14.5 %) 14.5 Plt Count (150 - 400 x10 3/uL) 316 MPV (7.0 - 9.0 fL) 8.4 Neut % (Auto) (56.0 - 77.0 %) 75.0 Lymph % (Auto) (14.0 - 32.0 %) 7.0 L Dolores % (Auto) (4.8 - 9.0 %) 10.3 H Eos % (Auto) (0.3 - 3.7 %) 6.9 H Baso % (Auto) (0.0 - 2.0 %) 0.2 Neut # (Auto) (2.0 - 7.6 x10 3/uL) 9.64 H Lymph # (Auto) (1.0 - 3.8 x10 3/uL) 0.90 L Dolores # (Auto) (0.1 - 0.8 x10 3/uL) 1.32 H Eos # (Auto) (0.0 - 0.2 x10 3/uL) 0.89 H Baso # (Auto) (0.0 - 0.2 x10 3/uL) 0.03 Abs Immat Gran (auto) (0.00 - 0.03 x10 3/uL) 0. 08 H Add Manual Diff NO Immature Gran % (0.0 - 2.0 %) 0.6 Nucleated RBC % (0 - 0 %) 0.0 Nucleated RBCs # (Man) (0.0 - 0.1 x10 3/uL) 0.0 0 Radiology data: Laboratory Tests 05/20/20 0535: [Embedded Image Not Available] Laboratory Tests 05/20 534 Chemistry Sodium (134 - 147 mEq/L) 134 Potassium (3.4 - 5.0 mEq/L) 3.8 Chloride (100 - 108 mEq/L) 96 L Carbon Dioxide (21 - 33 mEq/l) 30 Anion Gap (0 - 20) 12 BUN (7 - 18 mg/dL) 44 H Creatinine (0.6 - 1.3 mg/dL) 4.2 H Glomerular Filtr Rate (70 - 80) 13.9 L Glucose (70 - 110 mg/dL) 88 Calcium (8.0 - 10.5 mg/dL) 9.2 Total Bilirubin (0.0 - 1.0 mg/dL) 0.60 AST (15 - 37 IUnit/L) 14 L ALT (30 - 65 IUnit/L) 9 L Total Alk Phosphatase (20 - 125 IUnit/L) 104 Total Protein (6.4 - 8.2 g/dL) 6.9 Albumin (3.4 - 5.0 g/dL) 3.20 L Laboratory Tests 05/20 534 Hematology WBC (4.5 - 11.0 x10 3/uL) 12.9 H RBC (4.00 - 5.60 x10 6/uL) 3.11 L Hgb (12.5 - 16.9 g/dL) 9.0 L Hct (37.5 - 50.7 %) 28.2 L MCV (81.0 - 99.0 fL) 90.7 MCH (27.0 - 33.0 pg) 28.9 MCHC (33.0 - 37.0 g/dL) 31.9 L RDW (11.5 - 14.5 %) 14.5 Plt Count (150 - 400 x10 3/uL) 316 MPV (7.0 - 9.0 fL) 8.4 Neut % (Auto) (56.0 - 77.0 %) 75.0 Lymph % (Auto) (14.0 - 32.0 %) 7.0 L Dolores % (Auto) (4.8 - 9.0 %) 10.3 H Eos % (Auto) (0.3 - 3.7 %) 6.9 H Baso % (Auto) (0.0 - 2.0 %) 0.2 Neut # (Auto) (2.0 - 7.6 x10 3/uL) 9.64 H Lymph # (Auto) (1.0 - 3.8 x10 3/uL) 0.90 L Dolores # (Auto) (0.1 - 0.8 x10 3/uL) 1.32 H Eos # (Auto) (0.0 - 0.2 x10 3/uL) 0.89 H Baso # (Auto) (0.0 - 0.2 x10 3/uL) 0.03 Abs Immat Gran (auto) (0.00 - 0.03 x10 3/uL) 0 .08 H Add Manual Diff NO Immature Gran % (0.0 - 2.0 %) 0.6 Nucleated RBC % (0 - 0 %) 0.0 Nucleated RBCs # (Man) (0.0 - 0.1 x10 3/uL) 0.0 0 Microbiology Date/Time Procedure - Status Source Growth 05/20 529 MRSA DNA Surveillance Screen - COMP NASAL Microbiology: 05/20 1230 LEG: Wound Culture - ORD 05/20 529 NASAL: MRSA DNA Surveillance Screen - COMP Current Medications Sig/Tatum Start time Last Medication Dose Route Stop Time Status Admin Aspirin 81 MG DAILY 05/20 899 AC 05/20 PO 06/19 1300 0950 Clopidogrel Bisulfate 75 MG DAILY 05/20 899 AC 05/20 PO 06/19 1300 0951 Furosemide 40 MG DAILY 05/20 899 AC 05/20 PO 06/19 1300 0951 Polyethylene Glycol 17 GM DAILY 05/20 899 AC 0 05/20 PO 06/19 1300 0951 Senna 1 TAB DAILY 05/20 899 CKD 05/20 PO 06/19 1300 0951 Venlafaxine HCl 75 MG DAILY 05/20 899 AC 05/20 PO 06/19 1300 1013 Acetaminophen 650 MG Q6H PRN PRN 05/20 0845 AC PO 06/19 0844 Hydralazine HCl 10 MG Q6H PRN PRN 05/20 0845 AC PO 06/19 0844 Ondansetron HCl 4 MG TID PRN PRN 05/20 844 AC SL 06/19 0844 Heparin Sodium 5,000 UNIT Q8H 05/19 2200 AC SUBQ 06/19 1300 0526 Buspirone HCl 10 MG BEDTIME 05/19 2099 AC 05/19 PO 06/19 1300 2147 Epoetin Donny-epbx 4,000 UNIT TuThSa@2100 05/19 2100 CKD 05/19 SUBQ 06/19 1300 2302 Gabapentin 300 MG BEDTIME 05/19 2099 AC 05/19 PO 06/19 1300 2148 Levetiracetam 500 MG Q12HR 05/19 2099 AC 05/20 PO 05/21 0600 0952 Metoprolol Tartrate 25 MG BID 05/19 2099 AC PO 06/19 1300 0951 Trazodone HCl 150 MG BEDTIME 05/19 2099 AC 8 PO 06/19 1300 2148 Hydrocodone Bitart/ 1 TAB Q4H PRN PRN 05/19 201 5 AC 05/20 Acetaminophen PO 07/20 1300 1014 Zolpidem Tartrate 5 MG BEDTIME PRN PRN 05/19 20 00 AC 05/19 PO 06/19 1300 2148 Diagnosis, Assessment Plan Free Text DxA P Notes Free Text DxA P Notes: Assessment: 1.Mechanical fall 2.Traumatic brain injury with subdural hematoma 3. Right AKA pulmonary 2020 4. IMpaired mobility/Impaired gait 5. History of depression 6. Generalized weakness 7. Phantom pain 8. End-stage renal disease on hemodialysis 3 day s a week 9. Anemia 10. History of coronary artery disease, hyperten willy, and hyperlipidemia Plan of care: -Continue with comprehensive inpatient rehabilit [facility] rehab team -Pain control -Fall precaution -DVT prophylaxis subcu heparin -GI prophylaxis patient currently on Protonix -Pain control as pain management -Seizure precaution patient on Keppra -Continues present medications -Monitor labs -Trend leukocytosis -Plan of care discussed with the patient, galina marcano nurse, and Dr. Cavazos. We thank Dr. Curtis for allowing us t o participate in the care of Danny Samaniego 05/23/20 2131: Attestations Physician Attestation Agree w/findings plan: I agree with the findings and plan as documented by JOSE Meek. Plan of care coordinated with JOSE Meek. Pertinent labs, Imaging, and store sales consultant evaluations reviewed. 74-year-old male was admitted to inpatient rehab for comprehensive rehabilitation. We were requested to do medical management. We will continue with comprehensive inpatient rehabilitation was per rehab team, pain control, fall precautions, DVT prophylaxis with subcu hep imtiaz, GI prophylaxis with Protonix. pain control as pain management, seizu re precautions with Keppra, present medications. We will monitor his labs an d check leukocytosis trend. Electronically Signed by Javier Meek NP on 0 05/22/20 at 0503 Addendum 1: 05/22/20 0503 by Javier Meek NP Please correct this is a consultation note and H P Electronically Signed by Javier Meek NP on 0 05/22/20 at 0503 RPT #:[id number] END OF REPORT 2020-05-20 14:26:00-00:00 [facility]L [facility] ([facility]) History Physical - Adult REPORT#:[id number] REPORT STATUS: Signed DATE:05/20/20 TIME: 1426 PATIENT: DARIEN GROSSMAN UNIT #: [id number] ROOM/BED: [place] [address] : 45 AGE: 74 SEX: M ATTEND: Sekou Curtis MD ADM AUTHOR: Javier Meek MONOGRAM MAKER * ALL edits or amendments must be made on the el [employer]/computer document * See Addendum Javier Meek 05/20/20 1426: History of Present Illness HPI HPI: 74-year-old male with past medical history of co ronary artery disease status post PCI, end-stage renal disease, hyperlipidemi a, recent right AKA who was admitted to inpatient [facility]hab [facility] a fall in rehab facility on March 15, 2020 and it was discover ed that patient had subdural hematoma. Patient has some m cristino loss. Patient has been having difficulty with balance since his AKA consequently is admitted t o inpatient rehab for comprehensive rehabilitation. We were asked to d o medical management. Patient's vital signs are stable Abnormal labs leukocytosis and anemia patient wi th renal failure on hemodialysis. History Past medical history: Reports: Coronary artery disease ( and stents 4 years ago). Additional medical history: ESRD, high cholesterol Additional surgical history: recent right AKA, previous right knee replacemen t complicated by infection Family history: Denies: CAD < 40 yrs old, Coagulopathy. Additional family history: he has a daughter and 2 sons but states they are not his surrogate decision makers. A family friend named Marin Anderson is the person he is currently designating Alcohol use: Denies EtOH use Drug use: Denies recreational drugs Smoking status: Smoking status for patients 13 years old or old er: Never Smoker Medication/Allergy-Vaccine Hx Allergies: Coded Allergies: shellfish derived (Severe, SWELLING 05/13/20) Iodine and Iodide Containing Produc (Mild, DIARR HEA 05/13/20) Uncoded Allergies: PINICILLIN (Mild, ITCHING 05/13/20) Ambulatory status: Wheelchair Review of Systems Constitutional: Denies: chills, fever. ENT: Denies: earache, nasal congestion, sore throat. Respiratory: Denies: hemoptysis, parox no cturnal dyspnea, pleurisy, pleuritic pain, pneumonia , SOB, wheezing. Cardiovascular: Denies: chest pain, palpitations. GI: Denies: abdominal pain, nausea, vomiting. : Denies: flank pain, frequency, hematuria. Musculoskeletal: Arthritis: Reports: right upper. Denies: left upper, left lower, right lower. Extremity pain: Reports: right lower. Neuro: Denies: change in LOC, confusion, dizziness, hea dache, lightheaded, numbness, seizure, slurred speech, spinning sensation, syn cope, unable to speak, vision change. Psych: Reports: depression. Physical Exam VS/I O Vital Signs: Date Time Temp Pulse Resp B/P B/P Pulse O2 O2 F low FiO2 Mean Ox Delivery Rate 05/20 0758 37.0 67 16 126/68 87.0 93 05/20 0005 36.6 65 14 111/57 75.2 93 Room air 05/19 1819 36.8 64 16 138/68 91.1 96 24 hour I O ending at 0700: 05/20 0700 05/19 1900 Intake Total 120 Output Total Balance 120 Intake, Oral 120 Number Voids 1 Patient 77.909 kg Weight Weight Bed scale Measurement Method PATIENT WEIGHT: Weight (lb): 171 Weight (oz): 12.16 Weight (kg): 77.909 General appearance: alert, awake, oriented Head/Eyes: atraumatic, EOMI, normocephalic Neck: non-tender, no JVD Cardiovascular: regular rate rhythm Respiratory: decreased breath sounds, no distres s, symmetric expansion Abdomen/GI: active bowel sounds, soft, non-tende r, no guarding, no rebound Extremities: decreased range of motion, moves al l Neuro/CUSTODIAN MANAGER: alert, oriented X 3, normal speech Skin: dry, intact Psychiatry: normal affect, normal judgment/insig ht, normal mood Results Findings/Data: Laboratory Tests: 05/20 0535 Chemistry Sodium (134 - 147 mEq/L) 134 Potassium (3.4 - 5.0 mEq/L) 3.8 Chloride (100 - 108 mEq/L) 96 L Carbon Dioxide (21 - 33 mEq/l) 30 Anion Gap (0 - 20) 12 BUN (7 - 18 mg/dL) 44 H Creatinine (0.6 - 1.3 mg/dL) 4.2 H Glomerular Filtr Rate (70 - 80) 13.9 L Glucose (70 - 110 mg/dL) 88 Calcium (8.0 - 10.5 mg/dL) 9.2 Total Bilirubin (0.0 - 1.0 mg/dL) 0.60 AST (15 - 37 IUnit/L) 14 L ALT (30 - 65 IUnit/L) 9 L Total Alk Phosphatase (20 - 125 IUnit/L) 104 Total Protein (6.4 - 8.2 g/dL) 6.9 Albumin (3.4 - 5.0 g/dL) 3.20 L Hematology WBC (4.5 - 11.0 x10 3/uL) 12.9 H RBC (4.00 - 5.60 x10 6/uL) 3.11 L Hgb (12.5 - 16.9 g/dL) 9.0 L Hct (37.5 - 50.7 %) 28.2 L MCV (81.0 - 99.0 fL) 90.7 MCH (27.0 - 33.0 pg) 28.9 MCHC (33.0 - 37.0 g/dL) 31.9 L RDW (11.5 - 14.5 %) 14.5 Plt Count (150 - 400 x10 3/uL) 316 MPV (7.0 - 9.0 fL) 8.4 Neut % (Auto) (56.0 - 77.0 %) 75.0 Lymph % (Auto) (14.0 - 32.0 %) 7.0 L Dolores % (Auto) (4.8 - 9.0 %) 10.3 H Eos % (Auto) (0.3 - 3.7 %) 6.9 H Baso % (Auto) (0.0 - 2.0 %) 0.2 Neut # (Auto) (2.0 - 7.6 x10 3/uL) 9.64 H Lymph # (Auto) (1.0 - 3.8 x10 3/uL) 0.90 L Dolores # (Auto) (0.1 - 0.8 x10 3/uL) 1.32 H Eos # (Auto) (0.0 - 0.2 x10 3/uL) 0.89 H Baso # (Auto) (0.0 - 0.2 x10 3/uL) 0.03 Abs Immat Gran (auto) (0.00 - 0.03 x10 3/uL) 0. 08 H Add Manual Diff NO Immature Gran % (0.0 - 2.0 %) 0.6 Nucleated RBC % (0 - 0 %) 0.0 Nucleated RBCs # (Man) (0.0 - 0.1 x10 3/uL) 0.0 0 Radiology data: Laboratory Tests 05/20/20 0535: [Embedded Image Not Available] Laboratory Tests 04/09 0535 Chemistry Sodium (134 - 147 mEq/L) 134 Potassium (3.4 - 5.0 mEq/L) 3.8 Chloride (100 - 108 mEq/L) 96 L Carbon Dioxide (21 - 33 mEq/l) 30 Anion Gap (0 - 20) 12 BUN (7 - 18 mg/dL) 44 H Creatinine (0.6 - 1.3 mg/dL) 4.2 H Glomerular Filtr Rate (70 - 80) 13.9 L Glucose (70 - 110 mg/dL) 88 Calcium (8.0 - 10.5 mg/dL) 9.2 Total Bilirubin (0.0 - 1.0 mg/dL) 0.60 AST (15 - 37 IUnit/L) 14 L ALT (30 - 65 IUnit/L) 9 L Total Alk Phosphatase (20 - 125 IUnit/L) 104 Total Protein (6.4 - 8.2 g/dL) 6.9 Albumin (3.4 - 5.0 g/dL) 3.20 L Laboratory Tests 05/20 0535 Hematology WBC (4.5 - 11.0 x10 3/uL) 12.9 H RBC (4.00 - 5.60 x10 6/uL) 3.11 L Hgb (12.5 - 16.9 g/dL) 9.0 L Hct (37.5 - 50.7 %) 28.2 L MCV (81.0 - 99.0 fL) 90.7 MCH (27.0 - 33.0 pg) 28.9 MCHC (33.0 - 37.0 g/dL) 31.9 L RDW (11.5 - 14.5 %) 14.5 Plt Count (150 - 400 x10 3/uL) 316 MPV (7.0 - 9.0 fL) 8.4 Neut % (Auto) (56.0 - 77.0 %) 75.0 Lymph % (Auto) (14.0 - 32.0 %) 7.0 L Dolores % (Auto) (4.8 - 9.0 %) 10.3 H Eos % (Auto) (0.3 - 3.7 %) 6.9 H Baso % (Auto) (0.0 - 2.0 %) 0.2 Neut # (Auto) (2.0 - 7.6 x10 3/uL) 9.64 H Lymph # (Auto) (1.0 - 3.8 x10 3/uL) 0.90 L Dolores # (Auto) (0.1 - 0.8 x10 3/uL) 1.32 H Eos # (Auto) (0.0 - 0.2 x10 3/uL) 0.89 H Baso # (Auto) (0.0 - 0.2 x10 3/uL) 0.03 Abs Immat Gran (auto) (0.00 - 0.03 x10 3/uL) 0. 08 H Add Manual Diff NO Immature Gran % (0.0 - 2.0 %) 0.6 Nucleated RBC % (0 - 0 %) 0.0 Nucleated RBCs # (Man) (0.0 - 0.1 x10 3/uL) 0. 00 Microbiology Date/Time Procedure - Status Source Growth 05/20 529 MRSA DNA Surveillance Screen - COMP NASAL Microbiology: 05/20 1230 LEG: Wound Culture - ORD 05/20 529 NASAL: MRSA DNA Surveillance Screen - COMP Current Medications Sig/Tatum Start time Last Medication Dose Route Stop Time Status Admin Aspirin 81 MG DAILY 05/20 899 AC 05/20 PO 06/19 1300 0950 Clopidogrel Bisulfate 75 MG DAILY 05/20 899 A C 05/20 PO 06/19 1300 0951 Furosemide 40 MG DAILY 05/20 899 AC 05/20 PO 06/19 1300 0951 Polyethylene Glycol 17 GM DAILY 05/20 899 AC 0 05/20 PO 06/19 1300 0951 Senna 1 TAB DAILY 05/20 899 CKD 05/20 PO 06/19 1300 0951 Venlafaxine HCl 75 MG DAILY 05/20 899 AC 05/20 PO 06/19 1300 1013 Acetaminophen 650 MG Q6H PRN PRN 05/20 844 AC PO 06/20 0744 Hydralazine HCl 10 MG Q6H PRN PRN 05/20 844 AC PO 06/20 843 Ondansetron HCl 4 MG TID PRN PRN 05/20 844 AC SL 06/20 843 Heparin Sodium 5,000 UNIT Q8H 05/19 2200 AC SUBQ 06/19 1300 0526 Buspirone HCl 10 MG BEDTIME 05/19 2099 AC 04/ 8 PO 06/19 1300 2147 Epoetin Donny-epbx 4,000 UNIT TuThSa@2100 05/19 2099 CKD 05/19 SUBQ 06/19 1300 2302 Gabapentin 300 MG BEDTIME 05/19 2099 AC 05/19 PO 06/19 1300 2148 Levetiracetam 500 MG Q12HR 05/19 2099 AC 05/20 PO 05/21 0600 0952 Metoprolol Tartrate 25 MG BID 05/19 2099 AC PO 06/19 1300 0951 Trazodone HCl 150 MG BEDTIME 05/19 2099 AC 8 PO 06/19 1300 2148 Hydrocodone Bitart/ 1 TAB Q4H PRN PRN 05/19 201 5 AC 05/20 Acetaminophen PO 07/20 1300 1014 Zolpidem Tartrate 5 MG BEDTIME PRN PRN 05/19 20 00 AC 05/19 PO 06/19 1300 2148 Diagnosis, Assessment Plan Free Text DxA P Notes Free Text DxA P Notes: Assessment: 1.Mechanical fall 2.Traumatic brain injury with subdural hematoma 3. Right AKA pulmonary 2020 4. IMpaired mobility/Impaired gait 5. History of depression 6. Generalized weakness 7. Phantom pain 8. End-stage renal disease on hemodialysis 3 day s a week 9. Anemia 10. History of coronary artery disease, hyperten willy, and hyperlipidemia Plan of care: -Continue with comprehensive inpatient rehabilit [facility] rehab team -Pain control -Fall precaution -DVT prophylaxis subcu heparin -GI prophylaxis patient currently on Protonix -Pain control as pain management -Seizure precaution patient on Keppra -Continues present medications -Monitor labs -Trend leukocytosis -Plan of care discussed with the patient, galina palma'lennox nurse, and Dr. Cavazos. We thank Dr. Curtis for allowing us t o participate in the care of Mr. Amina CavazosDanny 05/23/202130: Attestations Physician Attestation Agree w/findings plan: I agree with the findings and plan as documented by JOSE Meek. Plan of care coordinated with JOSE Meek. Pertinent labs, Imaging, and store sales consultant evaluations reviewed. 74-year-old male was admitted to inpatient rehab for comprehensive rehabilitation. We were requested to do medical management. We will continue with comprehensive inpatient rehabilitation was per rehab team, pain control, fall precautions, DVT prophylaxis with subcu hep imtiaz, GI prophylaxis with Protonix. pain control as pain management, seizu re precautions with Keppra, present medications. We will monitor his labs an d check leukocytosis trend. Electronically Signed by Javier Meek NP on 0 05/22/20 at 0503 Electronically Signed by Danny Keith MD 05/24/20 at 2123 Addendum 1: 05/22/20 050 by Javier Meek MONOGRAM MAKER Please correct this is a consultation note and H P Electronically Signed by Javier Meek MONOGRAM MAKER on 0 05/22/20 at 0503 RPT #:[id number] END OF REPORT 2020-05-20 13:03:00-00:00 [facility]L [facility] ([facility]) Pain Management Consult Note REPORT#:[id number] REPORT STATUS: Signed DATE:05/20/20 TIME: 1303 PATIENT: DARIEN GROSSMAN UNIT #: [id number] ROOM/BED: [place] [address] : 45 AGE: 74 SEX: M ATTEND: Rosa Curtis MD ADM AUTHOR: Dusty Smiley MONOGRAM MAKER * ALL edits or amendments must be made on the C-Note/computer document * History of Present Illness Primary Care Physician: Dr. Rubén Cavazos HPI: This is a 74-year-old male that initially presen amado to the ED due to multiple falls which resulted in a subdural hematoma. He recently had a right AKA and has been losing his balance. He struck his left side during the falls and now he is complaining of left th igh pain that is both burning and numbing sensation. He has pain at the right stump. He has now been transferred to the inpatient rehab unit. Pain management has been asked to as sist with pain control during the course of the admission. Review of Systems Musculoskeletal: extremity pain. Systems reviewed negative: Allergy/Immun, Cardio vascular, Constitutional, Endocrine, ENT, Eyes, GI, , Heme, Neuro, Psych , Respiratory, Skin History Past History Past Medical History: Reports: Coronary artery disease ( and stents 4 years ago). Medications: Home Medications: Medication Dose/Rte/Freq Days Qty Entered Last Max Daily Dose Reviewed busPIRone (BUSPAR) 10 MG PO BEDTIME 05/13/20 Strength: 10 MG TAB 1443 2255 HYDROcodone/APAP 1 TAB PO 05/13/20 05/19/20 (NORCO 10/325) Q6H PRN PRN PAIN 1443 2255 Strength: 10 MG-325 MG TAB ZOLPIDEM (AMBIEN) 10 MG PO 05/13/20 05/19/20 Strength: 10 MG TAB BEDTIME PRN 1444 2255 INSOMNIA GABAPENTIN (NEURONTIN) 300 MG PO BEDTIME 05/19/20 Strength: 300 MG CAP 1445 2255 DESVENLAFAXINE ER 25 MG PO DAILY 05/13/2005/19 (PRISTIQ) 1446 2255 Strength: 50 MG TAB.SR.24H traZODone (DESYREL) 150 MG PO BEDTIME 05/13/20 05/19/20 Strength: 150 MG TAB 1446 2255 FUROSEMIDE (LASIX) 40 MG PO DAILY 05/13/2010/01 Strength: 40 MG TAB 1447 2255 METOPROLOL TARTRATE 25 MG PO BID 05/13/2005/19 (LOPRESSOR) 1448 2255 Strength: 25 MG TAB levETIRAcetam (KEPPRA) 500 MG PO Q12HR 10 05/1405/19/20 Strength: 500 MG TAB 1333 2255 Current Hospital Medications: Blood Formation,Coagulation Sig/Tatum Start time Last Medication Dose Route Stop Time Status Admin Clopidogrel Bisulfate 75 MG DAILY 05/20 09 AC 05/20 (Plavix) PO 06/19 1300 0951 Heparin Sodium 5,000 UNIT Q8H 05/19 2200 AC (HEPARIN 5000 UNITS/ SUBQ 06/19 1300 0526 ML) Epoetin Donny-epbx 4,000 UNIT TuThSa@2100 05/19 2100 CKD 05/19 (RETACRIT) SUBQ 06/19 1300 2302 Cardiovascular Drugs Sig/Tatum Start time Last Medication Dose Route Stop Time Status Admin Hydralazine HCl 10 MG Q6H PRN PRN 05/20 0845 AC (APRESOLINE) PO 06/19 0844 Metoprolol Tartrate 25 MG BID 05/19 2100 AC (LOPRESSOR) PO 06/19 1300 0951 Central Nervous System Agents Sig/Tatum Start time Last Medication Dose Route Stop Time Status Admin Aspirin 81 MG DAILY 05/20 899 AC 05/20 (ASPIRIN) PO 06/19 1300 0950 Venlafaxine HCl 75 MG DAILY 05/20 899 AC 05/20 (Effexor XR 37.5 mg) PO 06/19 1300 1013 Acetaminophen 650 MG Q6H PRN PRN 05/20 0845 AC (TYLENOL) PO 06/19 0844 Buspirone HCl 10 MG BEDTIME 05/19 2099 AC 05/19 (BUSPAR) PO 06/19 1300 2147 Gabapentin 300 MG BEDTIME 05/19 2099 AC 05/19 (NEURONTIN) PO 06/19 1300 2148 Levetiracetam 500 MG Q12HR 05/19 2099 AC 05/20 (KEPPRA) PO 05/21 0600 0952 Trazodone HCl 150 MG BEDTIME 05/19 2099 AC 8 (DESYREL) PO 06/19 1300 2148 Hydrocodone Bitart/ 1 TAB Q4H PRN PRN 05/19 201 5 AC 05/20 Acetaminophen PO 07/20 1300 1014 (NORCO 10/325) Zolpidem Tartrate 5 MG BEDTIME PRN PRN 05/19 20 00 AC 05/19 (AMBIEN) PO 06/19 1300 2148 Electrolytic, Caloric, And Nadia Sig/Tatum Start time Last Medication Dose Route Stop Time Status Admin Furosemide 40 MG DAILY 05/20 899 AC 05/20 (LASIX) PO 06/19 1300 0951 Gastrointestinal Drugs Sig/Tatum Start time Last Medication Dose Route Stop Time Status Admin Polyethylene Glycol 17 GM DAILY 05/20 899 AC 05/20 (MIRALAX) PO 06/19 1300 0951 Senna 1 TAB DAILY 05/20 899 CKD 05/20 (SENOKOT) PO 06/19 1300 0951 Ondansetron HCl 4 MG TID PRN PRN 05/20 0845 AC (ZOFRAN ODT) SL 06/19 0844 Allergies: Coded Allergies: shellfish derived (Severe, SWELLING 05/13/20) Iodine and Iodide Containing Produc (Mild, DIARR HEA 05/13/20) Uncoded Allergies: PINICILLIN (Mild, ITCHING 05/13/20) Objective Physical Exam VS/I O: Last Documented: Result Date Time Pulse Ox 93 05/20 0758 B/P 126/68 05/20 757 B/P Mean 87.0 05/20 757 Temp 98.6 05/20 757 Pulse 67 05/20 757 Resp 16 05/20 757 O2 Delivery Room air 05/20 0005 24 hour I O ending at 0700: 05/20 0700 05/19 1900 Intake Total 120 Output Total Balance 120 Intake, Oral 120 Number Voids 1 Patient 77.909 kg Weight Weight Bed scale Measurement Method PATIENT WEIGHT: Weight (lb): 171 Weight (oz): 12.16 Weight (kg): 77.909 General appearance: alert, awake, oriented Head/Eyes: atraumatic, EOMI, normocephalic, PERR LA ENT: moist mucosal membranes Neck: full range of motion, non-tender, no JVD Cardiovascular: regular rate rhythm, normal hear t sounds Respiratory: clear to auscultation, aerating wel l, symmetric expansion Abdomen: soft, non-tender, no distention Extremities: moves all, no e jean, no clubbing, no cyanosis, right AKA, TTP over lateral thigh Neuro/CUSTODIAN MANAGER: alert, oriented X 3, normal speech, C LACY-XII grossly intact Skin: no rash Psychiatry: normal judgement/insight Spine Lumbar: normal inspection Results Findings/data: Laboratory Tests: 05/20 534 Chemistry Sodium (134 - 147 mEq/L) 134 Potassium (3.4 - 5.0 mEq/L) 3.8 Chloride (100 - 108 mEq/L) 96 L Carbon Dioxide (21 - 33 mEq/l) 30 Anion Gap (0 - 20) 12 BUN (7 - 18 mg/dL) 44 H Creatinine (0.6 - 1.3 mg/dL) 4.2 H Glomerular Filtr Rate (70 - 80) 13.9 L Glucose (70 - 110 mg/dL) 88 Calcium (8.0 - 10.5 mg/dL) 9.2 Total Bilirubin (0.0 - 1.0 mg/dL) 0.60 AST (15 - 37 IUnit/L) 14 L ALT (30 - 65 IUnit/L) 9 L Total Alk Phosphatase (20 - 125 IUnit/L) 104 Total Protein (6.4 - 8.2 g/dL) 6.9 Albumin (3.4 - 5.0 g/dL) 3.20 L Hematology WBC (4.5 - 11.0 x10 3/uL) 12.9 H RBC (4.00 - 5.60 x10 6/uL) 3.11 L Hgb (12.5 - 16.9 g/dL) 9.0 L Hct (37.5 - 50.7 %) 28.2 L MCV (81.0 - 99.0 fL) 90.7 MCH (27.0 - 33.0 pg) 28.9 MCHC (33.0 - 37.0 g/dL) 31.9 L RDW (11.5 - 14.5 %) 14.5 Plt Count (150 - 400 x10 3/uL) 316 MPV (7.0 - 9.0 fL) 8.4 Neut % (Auto) (56.0 - 77.0 %) 75.0 Lymph % (Auto) (14.0 - 32.0 %) 7.0 L Dolores % (Auto) (4.8 - 9.0 %) 10.3 H Eos % (Auto) (0.3 - 3.7 %) 6.9 H Baso % (Auto) (0.0 - 2.0 %) 0.2 Neut # (Auto) (2.0 - 7.6 x10 3/uL) 9.64 H Lymph # (Auto) (1.0 - 3.8 x10 3/uL) 0.90 L Dolores # (Auto) (0.1 - 0.8 x10 3/uL) 1.32 H Eos # (Auto) (0.0 - 0.2 x10 3/uL) 0.89 H Baso # (Auto) (0.0 - 0.2 x10 3/uL) 0.03 Abs Immat Gran (auto) (0.00 - 0.03 x10 3/uL) 0. 08 H Add Manual Diff NO Immature Gran % (0.0 - 2.0 %) 0.6 Nucleated RBC % (0 - 0 %) 0.0 Nucleated RBCs # (Man) (0.0 - 0.1 x10 3/uL) 0.0 0 Microbiology: Date/Time Procedure - Status Source Growth 05/20 1230 Wound Culture - ORD LEG 05/20 0530 MRSA DNA Surveillance Screen - COMP NASAL Diagnosis, Assessment Plan Free text A P: A/P: Patient is a 74 year old male presenting with: Left thigh pain, lateral femoral cutaneous neura lgia -We will perform a left lateral femoral cutaneou s nerve block to see if this helps with the pain -Lidoderm patch to left thigh daily -Otis 10/325 mg oral every 4 hours as needed fo r pain Right lower extremity pain, stump pain -Pain medications as outlined above Peripheral neuropathy, phantom limb pain right l ower extremity -Gabapentin 300 mg oral at bedtime -Start amitriptyline 10 mg oral at bedtime Antalgic/impaired gait -PT/OT -Gait training, improve endurance and strength -Transfer training -PMR following End-stage renal disease on hemodialysis -Nephrology following Subdural hematoma -Monitor mental status with opioids and other se dative medications Past medical history: Subdural hematoma, CAD, en d-stage renal disease on HD, hyperlipidemia, septic arthr itis of prosthesis of previous right TKA, depression Past surgical history: Right TKR, right AKA, cor onary stents Social history: Negative for alcohol, tobacco, i llicit drug use Family history: Not relevant All pertinent diagnostics/labs from the last 24 hours and during the course of the admission were reviewed. Plan discussed with the patient and the nurse. A ll questions were answered. Patient will be monitored for deleteriou s side effects associated with opioids and sedative medications. Me dications will be adjusted further clinical course. Risks versus benefits of opioid medications were reviewed to include, but not limited to respiratory depression, accid ental overdose, altered mental status, sudden , constipation which could result in bowel obstruction, seizures, withdrawal, dependency/addiction, risk for falls . Goals: Daily pain control. Case discussed with Dr Lofton whom agrees. 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: Total Prescriptions 28 Total Private Pay 0 Total Prescribers 4 Total Pharmacies 1 05/06/2020 1 05/06/2020 HYDROCODONE-ACETAMIN 10- 325 MG 30.0 7 [facility] SPA [id number] [facility] ([id number]) 0 42.86 MME Comm Ins [place] 04/20/2020 1 12/24/2019 ZOLPIDEM TARTRATE 10 MG TABLET 30.0 30 PE LAT [id number] [facility] (1602) 4 Comm Ins [place] 03/21/2020 1 12/24/2019 ZOLPIDEM TARTRATE 10 MG TABLET 30.0 30 PE LAT [id number] [facility] (1602) 3 Comm Ins [place] 02/20/2020 1 12/24/2019 ZOLPIDEM TARTRATE 10 MG TABLET 30.0 30 PE LAT [id number] [facility] (1602) 2 Comm Ins [place] 01/21/2020 1 12/24/2019 ZOLPIDEM TARTRATE 10 MG TABLET 30.0 30 PE LAT [id number] [facility] (1602) 1 [place] Ins [place] 12/24/2019 1 12/24/2019 ZOLPIDEM TARTRATE 10 MG TABLET 30.0 30 PE LAT [id number] [facility] (1602) 0 [place] 11/25/2019 1 07/07/2019 ZOLPIDEM TARTRATE 10 MG TABLET 30.0 30 PE LAT [id number] [facility] (1602) 5 Comm Ins [place] [id number] ([id number]) [address] [place] [id number] at 1941 RPT #:[id number] END OF REPORT 2020-05-20 13:03:00-00:00 [facility] Consult Note REPORT#:[id number] REPORT STATUS: Signed DATE:05/20/20 TIME: 1303 PATIENT: DARIEN GROSSMAN UNIT #: [id number] ROOM/BED: [place] [address] : 45 AGE: 74 SEX: M ATTEND: Rosa Curtis MD ADM AUTHOR: Dusty Smiley NP * ALL edits or amendments must be made on the C-Note/computer document * History of Present Illness Primary Care Physician: Dr. Rubén Cavazos HPI: This is a 74-year-old male that initially presen amado to the ED due to multiple falls which resulted in a subdural hematoma. He recently had a right AKA and has been losing his balance. He struck his left side during the falls and now he is complaining of left th igh pain that is both burning and numbing sensation. He has pain at the right stump. He has now been transferred to the inpatient rehab unit. Pain management has been asked to as sist with pain control during the course of the admission. Review of Systems Musculoskeletal: extremity pain. Systems reviewed negative: Allergy/Immun, Cardio vascular, Constitutional, Endocrine, ENT, Eyes, GI, , Heme, Neuro, Psych , Respiratory, Skin History Past History Past Medical History: Reports: Coronary artery disease ( and stents 4 years ago). Medications: Home Medications: Medication Dose/Rte/Freq Days Qty Entered Last Max Daily Dose Reviewed busPIRone (BUSPAR) 10 MG PO BEDTIME 05/13/20 Strength: 10 MG TAB 1443 2255 HYDROcodone/APAP 1 TAB PO 05/13/20 05/19/20 (NORCO 10/325) Q6H PRN PRN PAIN 1443 2255 Strength: 10 MG-325 MG TAB ZOLPIDEM (AMBIEN) 10 MG PO 05/13/20 05/19/20 Strength: 10 MG TAB BEDTIME PRN 1444 2255 INSOMNIA GABAPENTIN (NEURONTIN) 300 MG PO BEDTIME 05/19/20 Strength: 300 MG CAP 1445 2255 DESVENLAFAXINE ER 25 MG PO DAILY 05/13/2005/19 (PRISTIQ) 1446 2255 Strength: 50 MG TAB.SR.24H traZODone (DESYREL) 150 MG PO BEDTIME 05/13/20 05/19/20 Strength: 150 MG TAB 1446 2255 FUROSEMIDE (LASIX) 40 MG PO DAILY 05/13/2010/01 Strength: 40 MG TAB 1447 2255 METOPROLOL TARTRATE 25 MG PO BID 05/13/2005/19 (LOPRESSOR) 1448 2255 Strength: 25 MG TAB levETIRAcetam (KEPPRA) 500 MG PO Q12HR 10 05/0105/19/20 Strength: 500 MG TAB 1333 2255 Current Hospital Medications: Blood Formation,Coagulation Sig/Tatum Start time Last Medication Dose Route Stop Time Status Admin Clopidogrel Bisulfate 75 MG DAILY 05/20 0900 AC 05/20 (Plavix) PO 06/19 1300 0951 Heparin Sodium 5,000 UNIT Q8H 05/19 2200 AC (HEPARIN 5000 UNITS/ SUBQ 06/19 1300 0526 ML) Epoetin Donny-epbx 4,000 UNIT TuThSa@2100 05/19 2100 CKD 05/19 (RETACRIT) SUBQ 06/19 1300 2302 Cardiovascular Drugs Sig/Tatum Start time Last Medication Dose Route Stop Time Status Admin Hydralazine HCl 10 MG Q6H PRN PRN 05/20 0845 AC (APRESOLINE) PO 06/19 0844 Metoprolol Tartrate 25 MG BID 05/19 2099 AC (LOPRESSOR) PO 06/19 1300 0951 Central Nervous System Agents Sig/Tatum Start time Last Medication Dose Route Stop Time Status Admin Aspirin 81 MG DAILY 05/20 899 AC 05/20 (ASPIRIN) PO 06/19 1300 0950 Venlafaxine HCl 75 MG DAILY 05/20 899 AC 05/20 (Effexor XR 37.5 mg) PO 06/19 1300 1013 Acetaminophen 650 MG Q6H PRN PRN 05/20 0845 AC (TYLENOL) PO 06/20 0744 Buspirone HCl 10 MG BEDTIME 05/19 2099 AC 04/0 8 (BUSPAR) PO 06/19 1300 2147 Gabapentin 300 MG BEDTIME 05/19 2099 AC 05/19 (NEURONTIN) PO 06/19 1300 2148 Levetiracetam 500 MG Q12HR 05/19 2100 AC 05/20 (KEPPRA) PO 05/21 0600 0952 Trazodone HCl 150 MG BEDTIME 05/19 2100 AC 040 8 (DESYREL) PO 06/19 1300 2148 Hydrocodone Bitart/ 1 TAB Q4H PRN PRN 05/19 201 5 AC 05/20 Acetaminophen PO 07/20 1300 1014 (NORCO 10/325) Zolpidem Tartrate 5 MG BEDTIME PRN PRN 05/19 20 00 AC 05/19 (AMBIEN) PO 06/19 1300 2148 Electrolytic, Caloric, And Nadia Sig/Tatum Start time Last Medication Dose Route Stop Time Status Admin Furosemide 40 MG DAILY 05/20 899 AC 05/20 (LASIX) PO 06/19 1300 0951 [facility] Sig/Tatum Start time Last Medication Dose Route Stop Time Status Admin Polyethylene Glycol 17 GM DAILY 05/20 899 AC 0 05/20 (MIRALAX) PO 06/19 1300 0951 Senna 1 TAB DAILY 05/20 899 CKD 05/20 (SENOKOT) PO 06/19 1300 0951 Ondansetron HCl 4 MG TID PRN PRN 05/20 0845 AC (ZOFRAN ODT) SL 06/20 0744 Allergies: Coded Allergies: shellfish derived (Severe, SWELLING 05/13/20) Iodine and Iodide Containing Produc (Mild, DIARR HEA 05/13/20) Uncoded Allergies: PINICILLIN (Mild, ITCHING 05/13/20) Objective Physical Exam VS/I O: Last Documented: Result Date Time Pulse Ox 93 05/20 757 B/P 126/68 05/20 0758 B/P Mean 87.0 05/20 757 Temp 98.6 05/20 757 Pulse 67 05/20 757 Resp 16 05/20 075 O2 Delivery Room air 05/20 0005 24 hour I O ending at 0700: 05/20 0700 05/19 1900 Intake Total 120 Output Total Balance 120 Intake, Oral 120 Number Voids 1 Patient 77.909 kg Weight Weight Bed scale Measurement Method PATIENT WEIGHT: Weight (lb): 171 Weight (oz): 12.16 Weight (kg): 77.909 General appearance: alert, awake, oriented Head/Eyes: atraumatic, EOMI, normocephalic, PERR LA ENT: moist mucosal membranes Neck: full range of motion, non-tender, no JVD Cardiovascular: regular rate rhythm, normal hear t sounds Respiratory: clear to auscultation, aerating wel l, symmetric expansion Abdomen: soft, non-tender, no distention Extremities: moves all, no e jean, no clubbing, no cyanosis, right AKA, TTP over lateral thigh Neuro/CUSTODIAN MANAGER: alert, oriented X 3, normal speech, C LACY-XII grossly intact Skin: no rash Psychiatry: normal judgement/insight Spine Lumbar: normal inspection Results Findings/data: Laboratory Tests: 05/20 534 Chemistry Sodium (134 - 147 mEq/L) 134 Potassium (3.4 - 5.0 mEq/L) 3.8 Chloride (100 - 108 mEq/L) 96 L Carbon Dioxide (21 - 33 mEq/l) 30 Anion Gap (0 - 20) 12 BUN (7 - 18 mg/dL) 44 H Creatinine (0.6 - 1.3 mg/dL) 4.2 H Glomerular Filtr Rate (70 - 80) 13.9 L Glucose (70 - 110 mg/dL) 88 Calcium (8.0 - 10.5 mg/dL) 9.2 Total Bilirubin (0.0 - 1.0 mg/dL) 0.60 AST (15 - 37 IUnit/L) 14 L ALT (30 - 65 IUnit/L) 9 L Total Alk Phosphatase (20 - 125 IUnit/L) 104 Total Protein (6.4 - 8.2 g/dL) 6.9 Albumin (3.4 - 5.0 g/dL) 3.20 L Hematology WBC (4.5 - 11.0 x10 3/uL) 12.9 H RBC (4.00 - 5.60 x10 6/uL) 3.11 L Hgb (12.5 - 16.9 g/dL) 9.0 L Hct (37.5 - 50.7 %) 28.2 L MCV (81.0 - 99.0 fL) 90.7 MCH (27.0 - 33.0 pg) 28.9 MCHC (33.0 - 37.0 g/dL) 31.9 L RDW (11.5 - 14.5 %) 14.5 Plt Count (150 - 400 x10 3/uL) 316 MPV (7.0 - 9.0 fL) 8.4 Neut % (Auto) (56.0 - 77.0 %) 75.0 Lymph % (Auto) (14.0 - 32.0 %) 7.0 L Dolores % (Auto) (4.8 - 9.0 %) 10.3 H Eos % (Auto) (0.3 - 3.7 %) 6.9 H Baso % (Auto) (0.0 - 2.0 %) 0.2 Neut # (Auto) (2.0 - 7.6 x10 3/uL) 9.64 H Lymph # (Auto) (1.0 - 3.8 x10 3/uL) 0.90 L Dolores # (Auto) (0.1 - 0.8 x10 3/uL) 1.32 H Eos # (Auto) (0.0 - 0.2 x10 3/uL) 0.89 H Baso # (Auto) (0.0 - 0.2 x10 3/uL) 0.03 Abs Immat Gran (auto) (0.00 - 0.03 x10 3/uL) 0. 08 H Add Manual Diff NO Immature Gran % (0.0 - 2.0 %) 0.6 Nucleated RBC % (0 - 0 %) 0.0 Nucleated RBCs # (Man) (0.0 - 0.1 x10 3/uL) 0.0 0 Microbiology: Date/Time Procedure - Status Source Growth 05/20 1230 Wound Culture - ORD LEG 05/20 0530 MRSA DNA Surveillance Screen - COMP NASAL Diagnosis, Assessment Plan Free text A P: A/P: Patient is a 74 year old male presenting with: Left thigh pain, lateral femoral cutaneous neura lgia -We will perform a left lateral femoral cutaneou s nerve block to see if this helps with the pain -Lidoderm patch to left thigh daily -Otis 10/325 mg oral every 4 hours as needed fo r pain Right lower extremity pain, stump pain -Pain medications as outlined above Peripheral neuropathy, phantom limb pain right l ower extremity -Gabapentin 300 mg oral at bedtime -Start amitriptyline 10 mg oral at bedtime Antalgic/impaired gait -PT/OT -Gait training, improve endurance and strength -Transfer training -PMR following End-stage renal disease on hemodialysis -Nephrology following Subdural hematoma -Monitor mental status with opioids and other se dative medications Past medical history: Subdural hematoma, CAD, en d-stage renal disease on HD, hyperlipidemia, septic arthr itis of prosthesis of previous right TKA, depression Past surgical history: Right TKR, right AKA, cor onary stents Social history: Negative for alcohol, tobacco, i llicit drug use Family history: Not relevant All pertinent diagnostics/labs from the last 24 hours and during the course of the admission were reviewed. Plan discussed with the patient and the nurse. A ll questions were answered. Patient will be monitored for deleteriou s side effects associated with opioids and sedative medications. Me dications will be adjusted further clinical course. Risks versus benefits of opioid medications were reviewed to include, but not limited to respiratory depression, accid ental overdose, altered mental status, sudden , constipation which could result in bowel obstruction, seizures, withdrawal, dependency/addiction, risk for falls . Goals: Daily pain control. Case discussed with Dr Lofton whom agrees. 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: Total Prescriptions 28 Total Private Pay 0 Total Prescribers 4 Total Pharmacies 1 05/06/2020 1 05/06/2020 HYDROCODONE-ACETAMIN 10- 325 MG 30.0 7 [facility] SPA [id number] [facility] ([id number]) 0 42.86 MME Comm Ins [place] 04/20/2020 1 12/24/2019 ZOLPIDEM TARTRATE 10 MG TABLET 30.0 30 PE LAT [id number] [facility] ([id number]) 4 Comm Ins [place] 03/21/2020 1 12/24/2019 ZOLPIDEM TARTRATE 10 MG TABLET 30.0 30 PE LAT [id number] [facility] (1602) 3 [place] Ins [place] 02/20/2020 1 12/24/2019 ZOLPIDEM TARTRATE 10 MG TABLET 30.0 30 PE LAT [id number] [facility] (1602) 2 Comm Ins [place] 01/21/2020 1 12/24/2019 ZOLPIDEM TARTRATE 10 MG TABLET 30.0 30 PE LAT [id number] [facility] (1602) 1 [place] 12/24/2019 1 12/24/2019 ZOLPIDEM TARTRATE 10 MG TABLET 30.0 30 PE LAT [id number] [facility] (1602) 0 [place] Ins [place] 11/25/2019 1 07/07/2019 ZOLPIDEM TARTRATE 10 MG TABLET 30.0 30 PE LAT [id number] [facility] (1602) 5 Comm Ins [place] [id number] ([id number]) [address] [place] [address] at 1941 Electronically Signed by Herman Lofton MD on 0 05/22/20 at 1019 RPT #:[id number] END OF REPORT 2020-05-20 07:43:00-00:00 [facility] History Physical REPORT#:[id number] REPORT STATUS: Signed DATE:05/20/20 TIME: 742 PATIENT: DARIEN GROSSMAN UNIT #: [id number] ROOM/BED: [place] [address] : 45 AGE: 74 SEX: M ATTEND: Rosa Curtis MD ADM AUTHOR: Sekou Curtis MD * ALL edits or amendments must be made on the el ectronic/computer document * HPI HPI Chief complaint: Generalized weakness Attending physician: SEKOU CURTIS MD, ABPMR 25 YEARS Referring physician: Referring physician: Fausto Espino PCP: No Primary or Family Physician HPI: Patient is a 74 year old male with a pa st medical history of CAD with stents, end-stage renal disease, hyperlipidemia, recent right AKA, previous right TKA complicated by infection, previously modified in dependent with ADLs and was using a RW and WC for mobility. Patient lives in a single story home alone. On 03/15/2020 patient presented to [facility] ED from outside rehab facility s/p fall three days ago w ith CT head revealing SDH.Patient states he has "intermittent memory loss" and does not remember the events surrounding the fall but does sta te he has fallen four times related to ambulation. CT head with acute left parafalcine SDH and NSGY was consulted.No surgery was needed.Patient with recent right AKA 04/03 and has been having frequent falls since the AKA.Patient also with E SRD/HD and chronic anemia and nephrology as been following closely and continuation of HD 3x/week.His labs are being followed closely in addition to hi s HTN. Patient is below his functional baseline and is a good shirin date for inpatient acute rehab. Patient requires an intensive therapy program and is willing and abl e to tolerate a minimum of 3 hours of therapy per day. Patient will require P T and OT to address his needs related to the weakness from falls,SDH and recen t right AKA. The patient also requires 24 hour rehab nursing to manage and edu missy patient regarding medications,continuation of HD,stump care and fall prevention. The patient will continue to work on strength, bed mobility, walker sfers, gait so her can return home as independent as possible.His goal is to c omplete a comprehensive rehab program and not fall anymore. Patient fe eling better. He is alert and oriented x3 and following commands. Patient denie s any nausea, vomiting, fever, chills, chest pain, shortness of nabeel ath, diarrhea, constipation. RN notes to small open areas of the right AKA incision. He also complai ns of some left lateral thigh pain, worse at night that is sharp and achy. Rel ieved with pain medication. Preadmission screen was reviewed. Patient admitt ed to IRF. Changes since Pre Admit Screen None Premorbid participation: Prior Level of Function: Supervision or Set-up Comments: PER PATIENT Home Environment: Single Story House Environmental Details: ONE SMALL STEP TO ENTER Patient Lives With: Alone Durable Medical Equipment Pre-Hospitalization: WHEELCHAIR Comments: PER PATIENT, HAS BEEN USING WHEELCHAI R AND ROLLING WALKER FOR AMBULATION IN INPATIENT REHAB. PT PATEL S HAD 4 FALLS IN THE LAST 6 WEEKS. Impairment group: brain dysfunction NOTE Document ONLY ONE Impairment Group Brain dysfunction: traumatic, closed injury Etiologic diagnosis: Subdural hematoma/TBI History Preadmit diagnostic/labs: Date: 05/18/20 05/16/20 05/13/20 WBC: 9.0 HGB: 8.6 HCT: 27.4 Ca: 9.0 Na: 139 K+: 4.2 Glu: 87 M.89 BUN: 36 Creat: 3.5 Tot protein: 6.2 Alb: 3.30 PTT: 31.8 PT: 12.8 INR: 1.2 PLT: 298 Additional labs: 05/13/2020 SARS CoV-2 Rapid- nega tive Cultures: Imagin05/13/2020T HEAD/BRAIN W/O CONT IMPRES WILLY: Mild diffuse age -appropriate atrophy is present associated with mild to moderate nonspecific periventricular low attenuation most consistent with old microangiopathic ischemic change. Stable acute l eft parafalcine subdural hematoma extending into the left tentorium. Mini mal left to right midline shift is stable. Past medical history: Reports: Coronary artery disease ( and stents 4 years ago). Additional medical history: ESRD, high cholesterol Additional surgical history: recent right AKA, previous right knee replacemen t complicated by infection Family history: Denies: CAD < 40 yrs old, Coagulopathy. Additional family history: he has a daughter and 2 sons but states they are not his surrogate decision makers. A family friend named Marin Anderson is the person he is currently designating Alcohol use: Denies EtOH use Drug use: Denies recreational drugs Smoking status: Smoking status for patients 13 years old or old er: Never Smoker Medications: Home Medications: busPIRone (BUSPAR) 10 MG PO BEDTIME HYDROcodone/APAP (NORCO 10/325) 1 TAB PO Q6H PRN PRN PAIN ZOLPIDEM (AMBIEN) 10 MG PO BEDTIME PRN INSOMNIA GABAPENTIN (NEURONTIN) 300 MG PO BEDTIME DESVENLAFAXINE ER (PRISTIQ) 25 MG PO DAILY traZODone (DESYREL) 150 MG PO BEDTIME FUROSEMIDE (LASIX) 40 MG PO DAILY METOPROLOL TARTRATE (LOPRESSOR) 25 MG PO BID levETIRAcetam (KEPPRA) 500 MG PO Q12HR Active Meds + DC'd Last 24 Hrs-medications recon ciled Senna 1 TAB DAILY PO (CKD) Heparin Sodium 5,000 UNIT Q8HR SUBQ Aspirin 81 MG DAILY PO Clopidogrel Bisulfate 75 MG DAILY PO Epoetin Dnony-epbx 4,000 UNIT TuThSa@2100 SUBQ Hydrocodone Bitart/Acetaminophen 1 TAB Q4H PRN P RN PO Venlafaxine HCl 75 MG DAILY PO Furosemide 40 MG DAILY PO Albumin Human 12.5 GM ASDIR PRN IV Heparin Sodium (Porcine) 3,000 UNIT ASDIR PRN DI ALYSIS Lidocaine HCl 0.5 ML ASDIR PRN I-DERMAL (CKD) Mannitol 12.5 GM ASDIR PRN IV Sodium Chloride 2,000 ML ASDIR PRN IV Sodium Chloride 5 ML ASDIR PRN IV Sodium Chloride 10 ML ASDIR PRN IV Sodium Chloride 250 ML ASDIR PRN IV Buspirone HCl 10 MG BEDTIME PO Gabapentin 300 MG BEDTIME PO Metoprolol Tartrate 25 MG BID PO Trazodone HCl 150 MG BEDTIME PO Zolpidem Tartrate 5 MG BEDTIME PRN PRN PO Levetiracetam 500 MG Q12HR PO (DC) Polyethylene Glycol 17 GM DAILY PO Acetaminophen 650 MG Q6H PRN PRN PO Hydralazine HCl 10 MG Q6H PRN PRN IV Ondansetron HCl 4 MG Q4H PRN PRN IV Allergies: Coded Allergies: shellfish derived (Severe, SWELLING 05/13/20) Iodine and Iodide Containing Produc (Mild, DIARR HEA 05/13/20) Uncoded Allergies: PINICILLIN (Mild, ITCHING 05/13/20) Ambulatory status: Wheelchair ROS ROS ROS comments: 14 point review system was obtained. All systems reviewed are either negative or noncontributory or in the body of the H P. Objective Physical Exam VS: Last Documented: Result Date Time Pulse Ox 93 05/20 0758 B/P 126/68 05/20 0758 B/P Mean 87.0 05/20 0758 Temp 98.6 05/20 0758 Pulse 67 05/20 0758 Resp 16 05/20 0758 O2 Delivery Room air 05/20 0005 PATIENT WEIGHT: Weight (lb): 171 Weight (oz): 12.16 Weight (kg): 77.909 General appearance: alert, awake, no acute distr ess, no respiratory distress Psych: alert, normal affect, oriented x 3 HEENT: anicteric, mucosal membranes moist, pupil s reactive to light, sclera clear, NC/AT Neck: non-tender, supple, no JVD Cardiovascular: regular rate rhythm, S1/S2, no m urmur Respiratory: aerating well, clear bilaterally, c lear to auscultation Abdomen: bowel sounds presen t, non-distended, soft, non-tender, no mass palpable Skin: dry, normal temperature, L AKA incision w 2 open areas of dehiscence-no drainage, no odor. Musculoskeletal - general: Musculoskeletal - general: normal tone, no swel ling, MMT moves all against gravity. BUE 4/5, SHORT PIECE HANDLER GOOD, RHF 3+/5, LLE 4/5. L calf NT, No cords. TTP L lateral thigh above trochanter bursae. Neuro/CUSTODIAN MANAGER: alert, oriented X 3, CNII-XII intact, normal speech, reflexes equal bilat Results Findings/Data: Laboratory Tests: 05/20 534 Chemistry Sodium (134 - 147 mEq/L) 134 Potassium (3.4 - 5.0 mEq/L) 3.8 Chloride (100 - 108 mEq/L) 96 L Carbon Dioxide (21 - 33 mEq/l) 30 Anion Gap (0 - 20) 12 BUN (7 - 18 mg/dL) 44 H Creatinine (0.6 - 1.3 mg/dL) 4.2 H Glomerular Filtr Rate (70 - 80) 13.9 L Glucose (70 - 110 mg/dL) 88 Calcium (8.0 - 10.5 mg/dL) 9.2 Total Bilirubin (0.0 - 1.0 mg/dL) 0.60 AST (15 - 37 IUnit/L) 14 L ALT (30 - 65 IUnit/L) 9 L Total Alk Phosphatase (20 - 125 IUnit/L) 104 Total Protein (6.4 - 8.2 g/dL) 6.9 Albumin (3.4 - 5.0 g/dL) 3.20 L Hematology WBC (4.5 - 11.0 x10 3/uL) 12.9 H RBC (4.00 - 5.60 x10 6/uL) 3.11 L Hgb (12.5 - 16.9 g/dL) 9.0 L Hct (37.5 - 50.7 %) 28.2 L MCV (81.0 - 99.0 fL) 90.7 MCH (27.0 - 33.0 pg) 28.9 MCHC (33.0 - 37.0 g/dL) 31.9 L RDW (11.5 - 14.5 %) 14.5 Plt Count (150 - 400 x10 3/uL) 316 MPV (7.0 - 9.0 fL) 8.4 Neut % (Auto) (56.0 - 77.0 %) 75.0 Lymph % (Auto) (14.0 - 32.0 %) 7.0 L Dolores % (Auto) (4.8 - 9.0 %) 10.3 H Eos % (Auto) (0.3 - 3.7 %) 6.9 H Baso % (Auto) (0.0 - 2.0 %) 0.2 Neut # (Auto) (2.0 - 7.6 x10 3/uL) 9.64 H Lymph # (Auto) (1.0 - 3.8 x10 3/uL) 0.90 L Dolores # (Auto) (0.1 - 0.8 x10 3/uL) 1.32 H Eos # (Auto) (0.0 - 0.2 x10 3/uL) 0.89 H Baso # (Auto) (0.0 - 0.2 x10 3/uL) 0.03 Abs Immat Gran (auto) (0.00 - 0.03 x10 3/uL) 0. 08 H Add Manual Diff NO Immature Gran % (0.0 - 2.0 %) 0.6 Nucleated RBC % (0 - 0 %) 0.0 Nucleated RBCs # (Man) (0.0 - 0.1 x10 3/uL) 0.0 0 Microbiology: 05/20 0530 NASAL: MRSA DNA Surveillance Screen - RECD Exams: CPT Code: [id number] CT HEAD/BRAIN W/O CONT 05725 STUDY: - CT HEAD/BRAIN W/O CONT 05/13/2020 5:00 A M Ordering Physician: Fausto Espino MD Patient Name: DARIEN GROSSMAN MR: [id number] : 1945; Age: 74 years y/o Male Clinical Indication: Head trauma follow-up subd ural hematoma. Comparison: CT brain 05/12/2020 at 2213 hours TECHNIQUE: Multiple contiguous transaxial nonco ntrast CT images were obtained through the head. Coronal and sagittal reformatted images were prepared. CT imaging performed at this location utilizes radiation dose optimization techniques which include one or mo re of the following: -Automated exposure control -Adjustment of the mA and/or kV according to pa tient size -Use of iterative reconstruction technique CT Radiation Dose DLP: 609.43 mGy-cm FINDINGS: BRAIN PARENCHYMA: Mild scatter artifact. Mild diffuse age-appropriate atrophy is present associated with mild to moderate nonspecific periventricular low att enuation most consistent with old microangiopathic ischemic c hange. Fairly stable acute left parafalcine subdural h ematoma measuring approximately 9 mm maximum thickness again seen extending into the left tentorium measuring up to 2 mm maximum thi ckness. Stable minimal right to left midline shift estimated at 1.5 mm at the level of the septum pellucidum. No interval acute intracranial hemorrhage or in farction. VENTRICLES: The lateral ventricles, third ventr icle, fourth ventricle, and basilar cisterns are appropriate for degree of atrophy present. PARANASAL SINUSES: The visualized portions of t he paranasal sinuses are clear. MASTOIDS: Clear. ORBITS: The globes are stable with an absent ri ght lens. Stable small old right medial orbital wall fracture versus c ongenital dehiscence. SOFT TISSUES: No significant abnormality. SKULL: No acute fracture or suspicious osseous lesion. IMPRESSION: Mild diffuse age-appropriate atrophy is present associated with mild to moderate nonspecific periventricular low att enuation most consistent with old microangiopathic ischemic c hange. Stable acute left parafalcine subdural hematoma extending into the left tentorium. Minimal left to right midline s hift is stable. SL: TPAINTER-H at 0119 * Free Text Obj Notes Free Text Obj Notes: Precautions: Fall Pre- Gait Mobility Y/N: Yes Safety addressed through use of: Gait Belt Verbal Cues Tactile Cues Gait Device ROLLING WALKER WC TO FOLLOW Vital Signs/Oxygen: No Weightbearing: No Restriction Ambulation Distance: 25'X 2 30' Progression: Forward Assistance Level: Supervision or Set-up Gait Deviations: Head Down HOPPING ON LEFT LE [facility] Mobility: No Document Pain/Education: No Advanced Progression: No Effects of Treatment: Balance Improved [place] of care decreased Post [place] Precautions: In Chair Call Light in Reach Review Plan of Care: Yes PT charges: Gait Training [id number] Gait Cmt: PATIENT IN WC UPON ARRIVAL AND AGREEA BLE TO GAIT TRAINING. PATIENT AMBULATED 25' X 2, AND 30' WITH RW AND WC TO FOLLOW. PATIENT REQUIRED SEATED REST BREAK DUE TO FATIGUE. PATIENT VERY TANGENTIAL DURING THERAPY AND REQUIRED MODERATE VC TO REMAIN ON TASK. Diagnosis, Assessment Plan Diagnosis, Assessment Plan Problem List/A P: 1. Fall 2. Subdural hematoma 3. TBI (traumatic brain injury) 4. History of right above knee amputation (Onse t: 04/03/20) 5. ESRD on dialysis 6. History of coronary artery disease 7. History of coronary angioplasty with inserti on of stent 8. HLD (hyperlipidemia) 9. Anemia of chronic disease 10. Frequent falls 11. Hypoalbuminemia 12. Leukocytosis 13. Limb pain 14. Impaired functional mobility, balance, gait , and endurance Free Text A P: Assessment: Mechanical fall TBI with SDH, no surgical intervention required Stable acute L parafalcine SDH extending into the L tentorium with min left to right midline shift 04/03-Recent right AKA, previous right TKA compli cated by infection Impaired mobility and gait Generalized weakness Frequent falls Phantom pain/residual limb pain ESRD on hemodialysis Hyperkalemia resolved History of CAD Hypertension HLD Anemia of chronic disease Right AKA wound dehiscence-does not appear to be infected Left lateral thigh pain Significant impairment in self-care and function al mobility Plan: -Comprehensive inpatient rehabilitation with physical, occupational and speech therapy 3 hours a day for 5 to 6 days per week-2 05/18 rehabilitation physician supervision-03/09 rehabilitat ion nursing care-Case management for safe discharge planning-Rehab MD to monitor comorbidities and f unctional progress. -Decubitus prevention-protective hydrating lotio n-turn every 2 hours-offload -Right AKA wound dehiscence- wound care consulted-Dr. Gilbert-for now Xeroform and Mepilex -Consult new life brace management/prosthetics -Strict fall and safety precaution -DVT prophylaxis-SCDs and subcutaneous heparin -GI prophylaxis-Protonix -Early mobilization-OOB to chair -Work on bed mobility, transfer training , ADLs, pre-gait and gait exercises as tolerable. 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 intake, check albumin 3.2 and prealbumin, dietary consult, protein supplements. -Await consultants input, internal medicine, nep hrology, pain management, ID, wound care -Domenica for a total of 7 days-to be completed to zuniga 05/21 -Continue right AKA incisional dressing care -Consult prosthetic company for evaluation -Continue aspirin and Plavix-Lasix -History of depression/anxiety continue BuSpar, Desyrel -Monitor hemoglobin on Epogen -Hemodialysis as per nephrology-Saturday -Blood pressure currently stable on current medi cation -Renal diet -Elevated WBC-possible infec amado right NASEEM-culture wound-no fever-repeat CBC 05/21 -given patient's history of staph infection rob white will consult ID. -Continue current medication -ELOS: 14 days -GOALS: Supervision to modified independent -START BRAIN INJURY AND AMPUTATION IRF TT 72 min>50% with discussing about IRF ADMIT, o pen wounds to right AKA, cultures, wound care, ID con sult, rehab plan of care, goals, expectations, needs , and medical issues, examination. MAR and EMR r eviewed. All Questions answered. Review of comorbidities: Falls-frequent, ESRD on HD, CAD, Dyslipi demia, HTN, Anemia of chronic disease, Recent Right AKA 04/03, Hyperkalemia, stump pain Compare to PAS: POST ADMISSION PHYSICIAN EVALUATION ASSESSMENT: 1. Comparison of findings with the pread mission assessment are compatible with the post admission physician evaluation. 2. Review of the patient's prior and cur rent medical and functional conditions have been extensively reviewed and documented i n this H P, and discussed with the referring physicians, patient and family. A t this time, there has been no change in the patient's current medical or func tional conditions and plans to go ahead with rehab are to begin today. Estimated length of stay: 14 Orders: Procedure Date/time Status PREALBUMIN 06/20 0500 Active ALBUMIN 06/20 0500 Active PREALBUMIN 06/13 0500 Active ALBUMIN 06/13 0500 Active PREALBUMIN 06/06 0500 Active ALBUMIN 06/06 0500 Active PREALBUMIN 05/30 0500 Active ALBUMIN 05/30 0500 Active PREALBUMIN 05/23 0500 Active ALBUMIN 05/23 0500 Active CBC W/AUTO DIFF 05/21 0400 Active RENAL DIET 05/20 B Active MRSA SCREEN SURV 05/20 0500 Active COMPREHENSIVE METABOLIC PANEL 05/20 0500 Comple te CBC W/AUTO DIFF 05/20 0500 Complete Turn patient 05/19 2142 Active SPEECH THERAPIST CONSULT 05/19 2142 Active Resuscitation Status + 05/19 2141 Active PHYSICIAN CONSULT 05/19 2140 Active Information Only 05/19 182 Active REHAB NSG Reinforcement 05/19 182 Active Notify Primary MD 05/19 182 Active MRSA Protocol 05/19 182 Active Intake Output 05/19 182 Active Fall Precautions 05/19 182 Active Bed Check 05/19 182 Active Activity 05/19 182 Active COVID-19 Risk Assessment 05/19 182 Active REHAB: Physical Therapy 05/19 182 Active REHAB: Occupational Therapy 05/19 182 Active Nephrology Physician Consult 05/19 182 Active LEVEL OF CARE 05/19 182 Active ADMIT PATIENT (CPOE) 05/19 182 Active Consultants: internal medicine, nephrology, pain management Plan discussed with: patient, consultants, nurse , interdisc care team Code Status/Resusc. Discussion Resuscitation discussion: Discussed with: patient Code status: full code at 1244 RPT #:[id number] END OF REPORT 2020-05-19 12:15:00-00:00 [facility] ([facility]) Rehab Progress Note REPORT#:[id number] REPORT STATUS: Signed DATE:05/19/20 TIME: 1215 PATIENT: DARIEN GROSSMAN UNIT #: [id number] ROOM/BED: [place] [address] : 45 AGE: 74 SEX: M ATTEND: Liliam Espino MD ADM AUTHOR: Sharon Dunaway * ALL edits or amendments must be made on the C-Note/computer document * Subjective Chief complaint: Rehab follow-up C/o of amputatin site pain No new issues today OOB in w/c vistor at bedside states he had an episode of dizziness yesterday later afternoon when OOB to the restroom denies PATEL/dizziness Eating well Denies PATEL/N/V/D 14 systems reviewed and neg. except that above. Objective General VS: Vital Signs: Date Time Temp Pulse Resp B/P B/P Pulse O2 O2 Flow FiO2 Mean Ox Delivery Rate 05/19 1150 98.2 53 16 113/61 77.9 97 Room air / 0757 98.4 68 16 148/68 94.6 95 Room air / 0613 67 147/68 94.3 / 0331 98.2 62 16 164/69 100.4 95 Room air / 2240 98.1 57 16 127/64 84.8 96 Room air 04/ 1940 99.0 72 16 137/65 89.0 95 Room air 04/07 1643 99.0 74 18 149/75 99.7 95 Room air 04/ 1250 98.2 68 18 154/63 93.3 93 Room air PATIENT WEIGHT: Weight (lb): 182 Weight (oz): 0 Weight (kg): 82.554 Medications: Active Meds + DC'd Last 24 Hrs Senna 1 TAB DAILY PO (CKD) Heparin Sodium 5,000 UNIT Q8HR SUBQ Aspirin 81 MG DAILY PO Clopidogrel Bisulfate 75 MG DAILY PO Epoetin Donny-epbx 4,000 UNIT TuThSa@2100 SUBQ Hydrocodone Bitart/Acetaminophen 1 TAB Q4H PRN P RN PO Venlafaxine HCl 75 MG DAILY PO Furosemide 40 MG DAILY PO Albumin Human 12.5 GM ASDIR PRN IV Heparin Sodium (Porcine) 3,000 UNIT ASDIR PRN DI ALYSIS Lidocaine HCl 0.5 ML ASDIR PRN I-DERMAL (CKD) Mannitol 12.5 GM ASDIR PRN IV Sodium Chloride 2,000 ML ASDIR PRN IV Sodium Chloride 5 ML ASDIR PRN IV Sodium Chloride 10 ML ASDIR PRN IV Sodium Chloride 250 ML ASDIR PRN IV Buspirone HCl 10 MG BEDTIME PO Gabapentin 300 MG BEDTIME PO Metoprolol Tartrate 25 MG BID PO Trazodone HCl 150 MG BEDTIME PO Zolpidem Tartrate 5 MG BEDTIME PRN PRN PO Levetiracetam 500 MG Q12HR PO (DC) Polyethylene Glycol 17 GM DAILY PO Acetaminophen 650 MG Q6H PRN PRN PO Hydralazine HCl 10 MG Q6H PRN PRN IV Ondansetron HCl 4 MG Q4H PRN PRN IV Physical Exam General appearance: alert, awake Psych: alert, normal affect, oriented x 3 HEENT: anicteric, mucosal membranes moist, pupil s reactive to light, sclera clear Neck: non-tender, supple, no JVD C-Spine clearance: no midli ne tenderness, NI flexion w/o pain, NI extension w/ o pain Cardiovascular: regular rate rhythm, S1/S2, no m urmur Respiratory: aerating well, clear bilaterally, c lear to auscultation Abdomen: bowel sounds presen t, non-distended, soft, non-tender, no mass palpable Skin: dry, normal temperature, RESIDUAL LIMB W D RESSING Musculoskeletal - general: Musculoskeletal - general: range of motion norm al, Moves alll 4 exts against gravity, MMT BUE 4/5, R HF 3/5, LLE 3+/5. L calv e NT, NO cords. Neuro/CUSTODIAN MANAGER: alert, oriented X 3, CNII-XII intact, normal speech Diagnosis, Assessment Plan Free Text A P: Assessment: Mechanical fall TBI with SDH, no surgical intervention required Recent right AKA 04/03 Impaired mobility and gait Generalized weakness Frequent falls since AKA ESRD on hemodialysis Hyperkalemia CAD Hypertension HLD Anemia of chronic disease Plan: Continue PT/OT Out of bed to chair Work on strength, bed mobility, transfers, gait Increase strength and endurance Fall precautions Monitor p.o. intake and nutrition Strict decubitus precautions Stable acute left parafalcine subdural h ematona extending into the L tentorium with minimum left to right midline shift also st able on repeat head CT 05/13 No intervention for SDH Tiered pain control Bowel program Keppra for a total of 7 days Continue right AKA incisional dressing care Monitor po intake and nutrition, albumin 3.2 No antiplatelets/anticoagula nts for now-SCD to LLE, okay to restart Plavix in 72 hours from 05/13 as per neurosurgery Patient back on Plavix and aspirin Hemoglobin state on Epogen Hydralazine 10 mg every 6 hours as needed for SB P > 160 HGB 8.6 05/18 Decub precautions Advance therapies as tolerated. Patient approved by insurance for IPR Patient to be transferred later today to rehab Discussed rehab plan of care and transfer with patient/verbalized understanding therapy update: Gait Device ROLLING WALKER Weightbearing: No Res triction Ambulation Distance: 32' Progression: Forward Ba ckward Lateral, Right Assistance Level: Supervision or Set-up Total time 35 minutes greate r than 50% of the time spent discussing with patient about progress, IRF approval/rehab plan of care, goals, therapies, labs, medications. EMR and MAR reviewed. All questions answered. Rehab attestation: Face to face exam completed. Treatment plan disc ussed with patient. Meets continued stay criteria. Agree with interdiscipl inary treatment plan. at 1219 RPT #:[id number] END OF REPORT 2020-05-19 11:06:00-00:00 [facility] ([facility] Discharge Summary REPORT#:[id number] REPORT STATUS: Signed DATE:05/19/20 TIME: 1106 PATIENT: DARIEN GROSSMAN UNIT #: [id number] ROOM/BED: [place] [id number] : 45 AGE: 74 SEX: M ATTEND: Liliam Espino MD ADM AUTHOR: Alfonso Sullivan NP * ALL edits or amendments must be made on the el [employer]/computer document * General Information Date of admission: Observation Start Date: Date of admission: 05/13/20 Discharge date: 05/19/20 Hospital course: Free Text A P: Mechanism: Fall Injuries: SDH Active Problems: ESRD on HD Resolved Problems: n/a Incidental findings: n/a Chronic Medical Problems: CAD, ESRD on HD, dysli pidemia DVT prophylaxis: SCDs, hold lovenox for ICH GI prophylaxis: diet Lines/Be/ETT (placement dates: PIV Consultants: Neurosurg ([facility]), Nephrology Procedures: n/a Plan: Subdural hematoma * Stable acute left parafalc ine subdural hematona extending into the L tentorium with minimum left to right midline shift also st able on repeat head CT 05/13 * Neurosurg consulted and ad vised to hold plavix for 72 hours (05/16) and hold ASA until same date -resumed jj vix and ASA, heparin sq today after no neuro changes noted per neurosurg recs * Maintain SBP <140 * Keppra x 7 days * Medically cleared for transfer to rehab facili ty * PT/OT ESRD on HD * chronic renal failure * nephrology consulted, HD continues Diet: Renal diet Labs: AM PT/OT recs: self transfer to wheelchair DME: wheelchair Code status: Full code Medical Decision Making: In the event the patient is incapacitated and not able to make their own medical decisions, the y have elected Marin Mixon, contact number [phone], to make medical decisions f or them. Dispo: in rehab Med Rec PCP PCP: PCP: No Primary or Family Physician Med Rec Discharge meds: Stop taking the following medications: CLOPIDOGREL (PLAVIX) 75 MG TAB 75 MILLIGRAM ORAL DAILY. ASPIRIN (ASPIRIN) 81 MG TAB.CHEW 81 MILLIGRAM ORAL TWICE DAILY. Continue taking these medications: busPIRone (BUSPAR) 10 MG TAB 10 MILLIGRAM ORAL BEDTIME. HYDROcodone/APAP (NORCO 10/325) 10 MG-325 MG TAB 1 TABLET ORAL EVERY 6 HOURS NEEDED. as neede d for PAIN ZOLPIDEM (AMBIEN) 10 MG TAB 10 MILLIGRAM ORAL BEDTIME. as needed for INSOMN IA GABAPENTIN (NEURONTIN) 300 MG CAP 300 MILLIGRAM ORAL BEDTIME. DESVENLAFAXINE ER (PRISTIQ) 50 MG TAB.SR.24H 25 MILLIGRAM ORAL DAILY. traZODone (DESYREL) 150 MG TAB 150 MILLIGRAM ORAL BEDTIME. FUROSEMIDE (LASIX) 40 MG TAB 40 MILLIGRAM ORAL DAILY. METOPROLOL TARTRATE (LOPRESSOR) 25 MG TAB 25 MILLIGRAM ORAL TWICE DAILY. Start taking the following new medications: levETIRAcetam (KEPPRA) 500 MG TAB 500 MILLIGRAM ORAL EVERY 12 HOURS. Qty = 10 No Refills Objective VS/I O Last Documented: Result Date Time Pulse Ox 95 05/19 756 B/P 148/68 05/19 756 B/P Mean 94.6 05/19 756 O2 Delivery Room air 05/19 756 Temp 36.9 05/19 756 Pulse 68 05/19 756 Resp 16 05/19 756 O2 Flow Rate 0.0 05/13 1600 FiO2 98 05/13 1200 24 hour I O ending at 0700: 05/19 0700 05/18 1900 Intake Total 750 Output Total 2600 Balance -1850 Intake, Oral 750 Number Voids 2 Output, 2300 Hemodialysis Output, Urine 300 PATIENT WEIGHT: Weight (lb): 182 Weight (oz): 0 Weight (kg): 82.554 Results Results: vital signs stable Free Text Obj Notes Free Text Obj Notes: Head/Eyes: PERRL, EOMI, small hematoma p alpable at posterior occiput, abrasion to right temporal area noted as well ENT: atraumatic Neck: full range of motion, non-tender, trachea midline, no JVD Cardiovascular: BP/pulses equal bilat (radial pu lses present), regular rate rhythm Respiratory/Chest: aerating well, no distress Abdomen: no chest wall deformity or tenderness Pelvis: atraumatic, pelvis stable, no pelvic ten derness Extremities: no tenderness or deformity right AK A noted R AKA Neuro/CUSTODIAN MANAGER: alert, oriented X 3, no motor deficit s Skin: dry, normal temperature Discharge Instructions PCP PCP: PCP: No Primary or Family Physician )( Discharge to: Inpatient Rehab Facility Discharge Instructions Additional Discharge Routines: PCP Follow-Up, Co nsultant Follow-Up )( Diet: Resume Home Diet/Feeds )( Activity: Per Pt )( Notify PCP of these S/S: worsening mental status, nausea, vomiting, fever , ]weakness, chest pain shortness of breath Follow-up Appointments PCP follow up: PCP: No Primary or Family Physician PCP follow up timeframe: In 1-2 weeks Special instructions: ich Consulting provider 1: Provider 1: Abraham Baldwin MD Specialty: Neurological Surgery Consult follow up timeframe: In 2-3 weeks Quality: Gen Med Crit Care Current Medications Current medication review: I attest that the foregoing medication list in t he medical record is true, accurate, and complete to the best of my knowled ge. VTE Prophylaxis VTE prophylaxis initiated: yes Advanced Care Plan 65 or Older Discussed with: patient, Patient noting tonight that he wants to be DNR. We discussed what that means an d he is aware- he made that decision for his mother as well Discussion included: code status, surrog ate decision maker per him is a family friend named Marin Anderson Electronically Signed by Alfonso Sullivan MONOGRAM MAKER on 10/01 at 1108 RPT #:[id number] END OF REPORT 2020-05-19 11:06:00-00:00 [facility] ([facility]) Discharge Summary REPORT#:[id number] REPORT STATUS: Signed DATE:05/19/20 TIME: 110 PATIENT: DARIEN GROSSMAN UNIT #: [id number] ROOM/BED: [place] [address] : 45 AGE: 74 SEX: M ATTEND: Liliam Espino MD ADM AUTHOR: Alfonso Sullivan MONOGRAM MAKER * ALL edits or amendments must be made on the C-Note/computer document * Alfonso Sullivan 05/19/20 1106: General Information Date of admission: Observation Start Date: Date of admission: 05/13/20 Discharge date: 05/19/20 Hospital course: Free Text A P: Mechanism: Fall Injuries: SDH Active Problems: ESRD on HD Resolved Problems: n/a Incidental findings: n/a Chronic Medical Problems: CAD, ESRD on HD, dysli pidemia DVT prophylaxis: SCDs, hold lovenox for ICH GI prophylaxis: diet Lines/Be/ETT (placement dates: PIV Consultants: Neurosurg ([facility]), Nephrology Procedures: n/a Plan: Subdural hematoma * Stable acute left parafalc ine subdural hematona extending into the L tentorium with minimum left to right midline shift also st able on repeat head CT 05/13 * Neurosurg consulted and ad vised to hold plavix for 72 hours (05/16) and hold ASA until same date -resumed jj vix and ASA, heparin sq today after no neuro changes noted per neurosurg recs * Maintain SBP <140 * Keppra x 7 days * Medically cleared for transfer to rehab facili ty * PT/OT ESRD on HD * chronic renal failure * nephrology consulted, HD continues Diet: Renal diet Labs: AM PT/OT recs: self transfer to wheelchair DME: wheelchair Code status: Full code Medical Decision Making: In the event the patient is incapacitated and not able to make their own medical decisions, the y have elected Marin Mixon, contact number [phone], to make medical decisions f or them. Dispo: in rehab Med Rec PCP PCP: PCP: No Primary or Family Physician Med Rec Discharge meds: Stop taking the following medications: CLOPIDOGREL (PLAVIX) 75 MG TAB 75 MILLIGRAM ORAL DAILY. ASPIRIN (ASPIRIN) 81 MG TAB.CHEW 81 MILLIGRAM ORAL TWICE DAILY. Continue taking these medications: busPIRone (BUSPAR) 10 MG TAB 10 MILLIGRAM ORAL BEDTIME. HYDROcodone/APAP (NORCO 10/325) 10 MG-325 MG TAB 1 TABLET ORAL EVERY 6 HOURS NEEDED. as neede d for PAIN ZOLPIDEM (AMBIEN) 10 MG TAB 10 MILLIGRAM ORAL BEDTIME. as needed for INSOMN IA GABAPENTIN (NEURONTIN) 300 MG CAP 300 MILLIGRAM ORAL BEDTIME. DESVENLAFAXINE ER (PRISTIQ) 50 MG TAB.SR.24H 25 MILLIGRAM ORAL DAILY. traZODone (DESYREL) 150 MG TAB 150 MILLIGRAM ORAL BEDTIME. FUROSEMIDE (LASIX) 40 MG TAB 40 MILLIGRAM ORAL DAILY. METOPROLOL TARTRATE (LOPRESSOR) 25 MG TAB 25 MILLIGRAM ORAL TWICE DAILY. Start taking the following new medications: levETIRAcetam (KEPPRA) 500 MG TAB 500 MILLIGRAM ORAL EVERY 12 HOURS. Qty = 10 No Refills Objective VS/I O Last Documented: Result Date Time Pulse Ox 95 05/19 756 B/P 148/68 05/19 756 B/P Mean 94.6 05/19 756 O2 Delivery Room air 05/19 756 Temp 36.9 05/19 756 Pulse 68 05/19 756 Resp 16 05/19 756 O2 Flow Rate 0.0 05/13 1600 FiO2 98 05/13 1200 24 hour I O ending at 0700: 05/19 0700 05/18 1900 Intake Total 750 Output Total 2600 Balance -1850 Intake, Oral 750 Number Voids 2 Output, 2300 Hemodialysis Output, Urine 300 PATIENT WEIGHT: Weight (lb): 182 Weight (oz): 0 Weight (kg): 82.554 Results Results: vital signs stable Free Text Obj Notes Free Text Obj Notes: Head/Eyes: PERRL, EOMI, small hematoma p alpable at posterior occiput, abrasion to right temporal area noted as well ENT: atraumatic Neck: full range of motion, non-tender, trachea midline, no JVD Cardiovascular: BP/pulses equal bilat (radial pu lses present), regular rate rhythm Respiratory/Chest: aerating well, no distress Abdomen: no chest wall deformity or tenderness Pelvis: atraumatic, pelvis stable, no pelvic ten derness Extremities: no tenderness or deformity right AK A noted R AKA Neuro/CUSTODIAN MANAGER: alert, oriented X 3, no motor deficit s Skin: dry, normal temperature Discharge Instructions PCP PCP: PCP: No Primary or Family Physician )( Discharge to: Inpatient Rehab Facility Discharge Instructions Additional Discharge Routines: PCP Follow-Up, Co nsultant Follow-Up )( Diet: Resume Home Diet/Feeds )( Activity: Per Pt )( Notify PCP of these S/S: worsening mental status, nausea, vomiting, fever , ]weakness, chest pain shortness of breath Follow-up Appointments PCP follow up: PCP: No Primary or Family Physician PCP follow up timeframe: In 1-2 weeks Special instructions: ich Consulting provider 1: Provider 1: Abraham Baldwin MD Specialty: Neurological Surgery Consult follow up timeframe: In 2-3 weeks Quality: Gen Med Crit Care Current Medications Current medication review: I attest that the foregoing medication list in t he medical record is true, accurate, and complete to the best of my knowled ge. VTE Prophylaxis VTE prophylaxis initiated: yes Advanced Care Plan 65 or Older Discussed with: patient, Patient noting tonight that he wants to be DNR. We discussed what that means an d he is aware- he made that decision for his mother as well Discussion included: code status, surrog ate decision maker per him is a family friend named Marin HoffmannTri 05/19/20 1801: Attestations Physician Attestation Agree w/findings plan: I was present with the MONOGRAM MAKER during the history and examination. I discussed the case with the MONOGRAM MAKER and agree w ith the findings and plan as documented in the MONOGRAM MAKER's note. Patient is doing okay, reports being ups et that IV pain medication was removed without his knowledge. 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 Pertinent imaging personally deidra ambriz. Discussed plan with other members of the [facility] are team. Tri Hoffmann MD Trauma/Acute Care Surgery Electronically Signed by Alfonso Sullivan MONOGRAM MAKER on 10/01 at 1108 RPT #:[id number] END OF REPORT 2020-05-19 11:06:00-00:00 [facility] ([facility]) Discharge Summary REPORT#:[id number] REPORT STATUS: Signed DATE:05/19/20 TIME: 1106 PATIENT: DARIEN GROSSMAN UNIT #: [id number] ROOM/BED: [place] [id number] : 45 AGE: 74 SEX: M ATTEND: Liliam Espino MD ADM AUTHOR: Alfonso Sullivan NP * ALL edits or amendments must be made on the C-Note/computer document * Alfonso Sullivan 05/19/20 1106: General Information Date of admission: Observation Start Date: Date of admission: 05/13/20 Discharge date: 05/19/20 Hospital course: Free Text A P: Mechanism: Fall Injuries: SDH Active Problems: ESRD on HD Resolved Problems: n/a Incidental findings: n/a Chronic Medical Problems: CAD, ESRD on HD, dysli pidemia DVT prophylaxis: SCDs, hold lovenox for ICH GI prophylaxis: diet Lines/Be/ETT (placement dates: PIV Consultants: Neurosurg ([facility]), Nephrology Procedures: n/a Plan: Subdural hematoma * Stable acute left parafalc ine subdural hematona extending into the L tentorium with minimum left to right midline shift also st able on repeat head CT 05/13 * Neurosurg consulted and ad vised to hold plavix for 72 hours (05/16) and hold ASA until same date -resumed jj vix and ASA, heparin sq today after no neuro changes noted per neurosurg recs * Maintain SBP <140 * Keppra x 7 days * Medically cleared for transfer to rehab facili ty * PT/OT ESRD on HD * chronic renal failure * nephrology consulted, HD continues Diet: Renal diet Labs: AM PT/OT recs: self transfer to wheelchair DME: wheelchair Code status: Full code Medical Decision Making: In the event the patient is incapacitated and not able to make their own medical decisions, the y have elected Marin Oral, contact number [phone], to make medical decisions f or them. Dispo: in rehab Med Rec PCP PCP: PCP: No Primary or Family Physician Med Rec Discharge meds: Stop taking the following medications: CLOPIDOGREL (PLAVIX) 75 MG TAB 75 MILLIGRAM ORAL DAILY. ASPIRIN (ASPIRIN) 81 MG TAB.CHEW 81 MILLIGRAM ORAL TWICE DAILY. Continue taking these medications: busPIRone (BUSPAR) 10 MG TAB 10 MILLIGRAM ORAL BEDTIME. HYDROcodone/APAP (NORCO 10/325) 10 MG-325 MG TAB 1 TABLET ORAL EVERY 6 HOURS NEEDED. as neede d for PAIN ZOLPIDEM (AMBIEN) 10 MG TAB 10 MILLIGRAM ORAL BEDTIME. as needed for INSOMN IA GABAPENTIN (NEURONTIN) 300 MG CAP 300 MILLIGRAM ORAL BEDTIME. DESVENLAFAXINE ER (PRISTIQ) 50 MG TAB.SR.24H 25 MILLIGRAM ORAL DAILY. traZODone (DESYREL) 150 MG TAB 150 MILLIGRAM ORAL BEDTIME. FUROSEMIDE (LASIX) 40 MG TAB 40 MILLIGRAM ORAL DAILY. METOPROLOL TARTRATE (LOPRESSOR) 25 MG TAB 25 MILLIGRAM ORAL TWICE DAILY. Start taking the following new medications: levETIRAcetam (KEPPRA) 500 MG TAB 500 MILLIGRAM ORAL EVERY 12 HOURS. Qty = 10 No Refills Objective VS/I O Last Documented: Result Date Time Pulse Ox 95 05/19 756 B/P 148/68 05/19 756 B/P Mean 94.6 05/19 756 O2 Delivery Room air 05/19 756 Temp 36.9 05/19 756 Pulse 68 05/19 756 Resp 16 05/19 756 O2 Flow Rate 0.0 05/13 1600 FiO2 98 05/13 1200 24 hour I O ending at 0700: 05/19 0700 05/18 1900 Intake Total 750 Output Total 2600 Balance -1850 Intake, Oral 750 Number Voids 2 Output, 2300 Hemodialysis Output, Urine 300 PATIENT WEIGHT: Weight (lb): 182 Weight (oz): 0 Weight (kg): 82.554 Results Results: vital signs stable Free Text Obj Notes Free Text Obj Notes: Head/Eyes: PERRL, EOMI, small hematoma p alpable at posterior occiput, abrasion to right temporal area noted as well ENT: atraumatic Neck: full range of motion, non-tender, trachea midline, no JVD Cardiovascular: BP/pulses equal bilat (radial pu lses present), regular rate rhythm Respiratory/Chest: aerating well, no distress Abdomen: no chest wall deformity or tenderness Pelvis: atraumatic, pelvis stable, no pelvic ten derness Extremities: no tenderness or deformity right AK A noted R AKA Neuro/CUSTODIAN MANAGER: alert, oriented X 3, no motor deficit s Skin: dry, normal temperature Discharge Instructions PCP PCP: PCP: No Primary or Family Physician )( Discharge to: Inpatient Rehab Facility Discharge Instructions Additional Discharge Routines: PCP Follow-Up, Co nsultant Follow-Up )( Diet: Resume Home Diet/Feeds )( Activity: Per Pt )( Notify PCP of these S/S: worsening mental status, nausea, vomiting, fever , ]weakness, chest pain shortness of breath Follow-up Appointments PCP follow up: PCP: No Primary or Family Physician PCP follow up timeframe: In 1-2 weeks Special instructions: ich Consulting provider 1: Provider 1: Abraham Baldwin MD Specialty: Neurological Surgery Consult follow up timeframe: In 2-3 weeks Quality: Gen Med Crit Care Current Medications Current medication review: I attest that the foregoing medication list in t he medical record is true, accurate, and complete to the best of my knowled ge. VTE Prophylaxis VTE prophylaxis initiated: yes Advanced Care Plan 65 or Older Discussed with: patient, Patient noting tonight that he wants to be DNR. We discussed what that means an d he is aware- he made that decision for his mother as well Discussion included: code status, surrog ate decision maker per him is a family friend named Tri Fontaine 05/19/20 1801: Attestations Physician Attestation Agree w/findings plan: I was present with the MONOGRAM MAKER during the history and examination. I discussed the case with the MONOGRAM MAKER and agree w ith the findings and plan as documented in the MONOGRAM MAKER's note. Patient is doing okay, reports being ups et that IV pain medication was removed without his knowledge. 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 Pertinent imaging personally revi katina. Discussed plan with other members of the [facility] are team. Tri Hoffmann MD Trauma/Acute Care Surgery Electronically Signed by Alfonso Sullivan MONOGRAM MAKER on 10/01 at 1108 Electronically Signed by Tri Hoffmann MD o n 05/19/20 at 1802 RPT #:[id number] END OF REPORT 2020-05-19 09:50:00-00:00 [facility]L [facility] Preadmission Screen REPORT#: REPORT STATUS: DATE:05/19/20 TIME: 949 PATIENT: DARIEN GROSSMAN UNIT #: ROOM: BED: : 45 AGE: 74 SEX: M ATTEND: Sekou Curtis MD PROJECTED ADM AUTHOR: Georgi Curtis MD REP SRV REP SRV TM: 0950 * ALL edits or amendments must be made on the el ectronic/computer document * IRF Preadmission Screen Information From [facility] CRS PAS documentation: The data set between the solid lines has been im ported from CRS PAS documentation. PREADMISSION INFORMATION: DEMOGRAPHICS: Assessment date: 05/19/20 Assessment time: 0737 Patient has an Advanced Directive: Yes Content of advance directive/living will/plan of care: DNR Copy of advance directive on chart: Referring physician: Fausto Espino Primary care provider: None listed Consulting physician(s): Sekou Trent-Rehab Anders Quick-Nephrology Abraham Baldwin-Neurosurgery Referral contact name: Lida Kumar Referral contact number: [phone] Referring setting: Acute hospital IMPAIRMENT GROUP: Impairment group: Brain traumatic, closed injury Etiologic diagnosis: Subdural Hematoma REVIEW OF MED CONDITIONS: Date of onset: 05/13/20 Current surgery date and type: Active comorbid conditions: Falls-frequent, ESRD on HD, CAD, Dyslipidemia, HTN, Anemia of chronic disease, Recent Right AKA 04/03 , Hyperkalemia, stump pain Past medical/surgical histor y: Coronary artery disease ( and stents 4 years ago) ,ESRD, high cholesterol PSH:recent right AKA, pr evious right knee replacement complicated by infection Had major surgery within 100 days of admission: Yes Risk for medical/clinical complications: Anemia, Arrhythmia, Aspiration, BP fluctuation, Cardiac instability, Constipation, DVT, Depression, Electrolyte imbalance, Infection, Injury d/t falls, Nutritio nal compromise, Pain Acute hospital stay summary: Patient is a 74 year old male previously modified independent with ADLs and wa s using a RW and WC for mobility.Patient lives in a single story home alone. On 03/15/2020 patient p resented to [facility] ED from outside rehab faci lity s/p fall three days ago with CT head revealing SDH.P atient states he has "intermittent memory loss" and does not remember the events surrounding the fall but does state he has fallen four times related to ambulation. CT head with a cute left parafalcine SDH and NSGY was consulted.No surger y was needed.Patient with recent right AKA 04/03 and has been having frequent falls since the AKA.Pat ient also with ESRD/HD and chronic anemia and nephrology as been fo llowing closely and continuation of HD 3x/week.His labs are being followed clos cass in addition to his HTN. Patient is below his functional baselin e and is a good candidate for inpatient acute rehab. Patient requires an intensive therapy program an d is willing and able to tolerate a minimum of 3 hours of therapy per day . Patient will require PT and OT to address his needs rela amado to the weakness from falls,SDH and recent right AKA. The patient also requires 24 hour rehab perez sing to manage and educate patient regarding medication s,continuation of HD,stump care and fall prevention. The patient will continue to work on strength, bed mobility, transfers, gait so her can return home as independent as possible.H is goal is to complete a comprehensive rehab program and not fall anymore . PREADMIT VITALS: Date/Time 05/19/20 0331 Temp F Temp C 36.8 Pulse 62 RR 16 BP 164/69 SPO2% 95 Ht ft 5 Ht in 9 Wt lbs 182.000 BMI 26.9 SUPPORTING DIAGNOSTICS/LABS/RADIOLOGY/CARDIOLOGY : Date: 05/18/20 05/16/20 05/13/20 WBC: 9.0 HGB: 8.6 HCT: 27.4 Ca: 9.0 Na: 139 K+: 4.2 Glu: 87 M.89 BUN: 36 Creat: 3.5 Tot protein: 6.2 Alb: 3.30 PTT: 31.8 PT: 12.8 INR: 1.2 PLT: 298 Additional labs: 05/13/2020 SARS CoV-2 Rapid- nega tive Cultures: Imagin05/13/2020T HEAD/BRAIN W/O CONT IMPRES WILLY: Mild diffuse age -appropriate atrophy is present associated with mild to moderate nonspecific periventricular low attenuation most consistent with old microangiopathic ischemic change. Stable acute l eft parafalcine subdural hematoma extending into the left tentorium. Mini mal left to right midline shift is stable. Other supporting diagnostics: NEUROLOGIC STATUS: Neurologic status: Alert, Oriented to person, Or iented to place, Oriented to time, Oriented to situation, Follows complex com mands Patient's mood and behavior: Appropriate Hand dominance: Right BOWEL/BLADDER: Continent of bladder for developmental age: No Number of bladder accidents in last 48 hours: 1 Catheter type: Insertion date: Bladder comment: Aids: Continent of bowel for developmental age: Yes Number of bowel accidents in last 48 hours: Date of last BM: 05/15/20 Colostomy: Ileostomy: Bowel comment: Aids: SKIN: Skin alteration: Present/Exists SKIN ALTERATION 1: Type: Surgical wound Location: Leg right Stage: Description: Skin alteration: - - Amputation Dis sean Knee right - - Instance list status: Active Tissue type- worst: Dressing intact/device Date of last dressing change: 05/17/20 Time of last dressing change: 0 Dressing/reinforcement type: Gauze Document advanced wound measurements: No cm2 area: Cannot Calculate Area Yet Worst tissue type score: 0 Intact value score: 0 SKIN ALTERATION 2: Type: Location: Stage: Description: SKIN ALTERATION 3: Type: Location: Stage: Description: SKIN ALTERATION 4: Type: Location: Stage: Description: EATING/NUTRITIONAL: Nutritional intake: PO regular food, Renal diet Eating compensatory strategies: Medication administration: Subcutaneous, Medicat ions whole, IV FUNCTIONAL ASSESSMENT: Prior device use: Manual WC, RW/FWW Prior device use additional information: FUNC. TASK PRIOR LOF CURRENT LOF EXPECTED LOF Bathing Independent Setup/cleanup ONLY Independ ent U.B. Dressing Independent Setup/cleanup ONLY In dependent L.B. Dressing Independent Partial/moderate asst Independent Bed/Ch Transf. Independent Supervise/touch asst Independent Toilet Transfer Independent Supervise/touch ass t Independent Stairs Locomotion Independent Supervise/touch asst Ind ependent Language and Cognition: Patient is currently cleopatra rt and oriented he is Guamanian speaking and sppech is clear. He is able to expr ess his needs,understand directions and his cognition which includes evert ry and problem solving appear intact. He does admit to some memory issues. Locomotion prior device use: Manual WC, RW/FWW Description of prior level o f locomotion: PER PATIENT, HAS BEEN USING WHEELCHAIR AND ROLLING WALKER FOR AMBULATION IN INPATIENT REHAB. PT HAS HAD 4 FALLS IN THE LAST 6 WEEKS. Locomotion current device: RW/FWW Locomotion current distance traveled without a r est break: 32ft Description of current level of locomotion: Gait Device ROLLING WALKER Weightbearing: No Restriction Ambulation Distance: 32' Progression: Forward Backward Lateral, Right Lateral, Left Assistance Level: Supervision or Set-up Description of expected level of locomotion: To ambulate safely and independently with AD used 300ft Overall functional comment: Patient is cooperative and motivated to participate in therapies in order to go home as independent as possible and not to fall anymore. Patient is limited in therapies by weakness,dizziness at times,fatigue and decreased endurance. 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 to return to work Marital status: Hobbies/leisure activities: Prior living situation: Home Living with: Alone Living with comment: ANTICIPATED DC PLAN/POST IRF: Expected discharge destination: Home Expected discharge physical layout: One story, Tub/shower combo, External stairs Number of external stairs: one small step to ent er home Number of internal stairs: Grab bars location: Anticipated services upon di scharge: Home health, Occupational therapy, Physical therapy Barriers to discharge: None Options discussed with patient: Yes Options discussed with caregiver: Patient agrees with program requirements: Yes Primary support contact: Marin Talamantes Relationship to patient: friend-his office manag er Phone number 1: [phone] Phone number 2: Caregiver availability: will vary Caregiver can provide: Intermittent assistance Patient and caregiver goals and preferences: Steele s not want to fall anymore ACTIVTY TOLERANCE: Current treatment interventions: Occupational th erapy, Physical therapy Patient able to tolerate 3 hours of therapy a da y: Yes Patient able to tolerate 15 hours of therapy a w qagan [place]: Altered therapy schedule comment: ACUTE INPATIENT REHAB PLAN: Estimated length of stay in days: 14 Anticipated services in acute inpatient rehab: A dditional services, Rehab nursing 03/09, architectural project manager, Occupational therapy , Physical therapy Additional services: Hemodialysis CRS ELECTRONIC SIGNATURE: CRS #1 electronic signature: Sonam REINOSO credentials: RN Date: 05/19/20 Time: 829 CRS #2 electronic signature: CRS credentials: Date: Time: CRS #3 electronic signature: CRS credentials: Date: Time: Provider Pre-Admit Summary Acute IP rehab admit: criteria met MD determination Based upon my evaluation and review of t supporting assessment documentation and consultation with the pr eadmission outbound call center representative, I have determined, prior to admitting this patient, that there is r easonable expectation that at the time of admission to the IRF, the patient's medical management and rehabilitation needs require an inpatient stay and close physician involvement. In addition, this patient qualifies for acute in patient rehab admission by functional and medical crite dora and can be expected to actively participate in, and benefit from, an intensive rehab therapy pro gram. at 0951 RPT #:[id number] END OF REPORT 2020-05-18 17:55:00-00:00 [facility] ([facility]) Nephrology Progress Note REPORT#:[id number] REPORT STATUS: Signed DATE:05/18/20 TIME: 1754 PATIENT: DARIEN GROSSMAN UNIT #: [id number] ROOM/BED: [place] [id number] : 45 AGE: 74 SEX: M ATTEND: Liliam Espino MD ADM AUTHOR: Merissa Dillon MD * ALL edits or amendments must be made on the C-Note/computer document * Subjective Chief Complaint: Seen and examined. c/o nausea and felt dizzy whe n he walked with PT. Objective General VS/I O: Vital Signs: Date Time Temp Pulse Resp B/P B/P Pulse O2 O2 F low FiO2 Mean Ox Delivery Rate 05/18 1643 99.0 74 18 149/75 99.7 95 Room air 05/18 1250 98.2 68 18 154/63 93.3 93 Room air 05/18 0410 98.6 63 12 128/64 85.5 94 Room air 05/17 2348 98.4 62 13 152/78 102.6 94 Room air 05/17 2017 98.4 61 12 154/61 92.2 95 Room air 24 hour I O ending at 0700: 05/18 0700 05/17 1900 Intake Total 600 Output Total Balance 600 Intake, Oral 600 Number Voids 1 PATIENT WEIGHT: Weight (lb): 182 Weight (oz): 0 Weight (kg): 82.554 Medications Active Meds + DC'd Last 24 Hrs Heparin Sodium 5,000 UNIT Q8HR SUBQ Aspirin 81 MG DAILY PO Clopidogrel Bisulfate 75 MG DAILY PO Epoetin Donny-epbx 4,000 UNIT TuTa@2100 SUBQ Hydrocodone Bitart/Acetaminophen 1 TAB Q4H PRN P RN PO Venlafaxine HCl 75 MG DAILY PO Furosemide 40 MG DAILY PO Albumin Human 12.5 GM ASDIR PRN IV Heparin Sodium (Porcine) 3,000 UNIT ASDIR PRN DI ALYSIS Lidocaine HCl 0.5 ML ASDIR PRN I-DERMAL (CKD) Mannitol 12.5 GM ASDIR PRN IV Sodium Chloride 2,000 ML ASDIR PRN IV Sodium Chloride 5 ML ASDIR PRN IV Sodium Chloride 10 ML ASDIR PRN IV Sodium Chloride 250 ML ASDIR PRN IV Buspirone HCl 10 MG BEDTIME PO Gabapentin 300 MG BEDTIME PO Metoprolol Tartrate 25 MG BID PO Mupirocin 1 APPLIC BID NASAL (DC) Trazodone HCl 150 MG BEDTIME PO Zolpidem Tartrate 5 MG BEDTIME PRN PRN PO Levetiracetam 500 MG Q12HR PO Polyethylene Glycol 17 GM DAILY PO Acetaminophen 650 MG Q6H PRN PRN PO Hydralazine HCl 10 MG Q6H PRN PRN IV Morphine Sulfate 4 MG Q4H PRN PRN IV (DC) Ondansetron HCl 4 MG Q4H PRN PRN IV Physical Exam General appearance: alert, awake Head/eyes: atraumatic, normocephalic Cardiovascular: normal heart sounds, regular rat e and rhythm Respiratory: clear to auscultation, normal breat h sounds Abdomen: non-tender, normal bowel sounds, soft Extremities: no edema, RT AKA Neuro/CUSTODIAN MANAGER: alert, oriented X 3, normal speech Hemodialysis access: Type: AV fistula Location: left forearm Results Findings/Data: Laboratory Tests 05/18 804 Chemistry Sodium (134 - 147 mEq/L) 139 Potassium (3.4 - 5.0 mEq/L) 4.2 Chloride (100 - 108 mEq/L) 104 Carbon Dioxide (21 - 33 mEq/l) 28 Anion Gap (0 - 20) 11 BUN (7 - 18 mg/dL) 36 H Creatinine (0.6 - 1.3 mg/dL) 3.5 H Glomerular Filtr Rate (70 - 80) 17.2 L Glucose (70 - 110 mg/dL) 87 Calcium (8.0 - 10.5 mg/dL) 9.0 Phosphorus (2.5 - 4.9 MG/DL) 4.7 Laboratory Tests 05/18 0805 Hematology WBC (4.5 - 11.0 x10 3/uL) 9.0 RBC (4.00 - 5.60 x10 6/uL) 2.94 L Hgb (12.5 - 16.9 g/dL) 8.6 L Hct (37.5 - 50.7 %) 27.4 L MCV (81.0 - 99.0 fL) 93.2 MCH (27.0 - 33.0 pg) 29.3 MCHC (33.0 - 37.0 g/dL) 31.4 L RDW (11.5 - 14.5 %) 14.8 H Plt Count (150 - 400 x10 3/uL) 298 MPV (7.0 - 9.0 fL) 8.8 Neut % (Auto) (56.0 - 77.0 %) 66.1 Lymph % (Auto) (14.0 - 32.0 %) 11.9 L Dolores % (Auto) (4.8 - 9.0 %) 9.0 Eos % (Auto) (0.3 - 3.7 %) 12.6 H Baso % (Auto) (0.0 - 2.0 %) 0.2 Neut # (Auto) (2.0 - 7.6 x10 3/uL) 5.96 Lymph # (Auto) (1.0 - 3.8 x10 3/uL) 1.07 Dolores # (Auto) (0.1 - 0.8 x10 3/uL) 0.81 H Eos # (Auto) (0.0 - 0.2 x10 3/uL) 1.14 H Baso # (Auto) (0.0 - 0.2 x10 3/uL) 0.02 Abs Immat Gran (auto) (0.00 - 0.03 x10 3/uL) 0. 02 Add Manual Diff NO Immature Gran % (0.0 - 2.0 %) 0.2 Nucleated RBC % (0 - 0 %) 0.0 Nucleated RBCs # (Man) (0.0 - 0.1 x10 3/uL) 0.0 0 Diagnosis, Assessment Plan Free Text A P: 1. ESRD 2. Hyperkalemia, resolved 3. Hypertension 4. Status post fall and acute SDH 5. Anemia of chronic kidney disease 6. Coronary artery disease Plan -HD MWF. HD today -Blood pressure currently stable and home medica tions restarted with holding parameters -Renal diet -Hemoglobin better. On Epogen 3 times weekly -Phos has been stable. -Rehab f/u. at 2333 RPT #:[id number] END OF REPORT 2020-05-18 15:03:00-00:00 [facility] ([facility] Rehab Progress Note REPORT#:[id number] REPORT STATUS: Signed DATE:05/18/20 TIME: 1503 PATIENT: DARIEN GROSSMAN UNIT #: [id number] ROOM/BED: [place] [id number] : 45 AGE: 74 SEX: M ATTEND: Liliam Espino MD ADM AUTHOR: Sharon Dunaway * ALL edits or amendments must be made on the C-Note/computer document * Subjective Chief complaint: Rehab follow-up C/o of amputatin site pain seen while on HD denies any new issues just feels a little tired today denies PATEL/dizziness Eating well Denies PATEL/N/V/D 14 systems reviewed and neg. except that above. Objective General VS: Vital Signs: Date Time Temp Pulse Resp B/P B/P Pulse O2 O2 Flow FiO2 Mean Ox Delivery Rate 05/18 1250 98.2 68 18 154/63 93.3 93 Room air 05/18 0410 98.6 63 12 128/64 85.5 94 Room air 05/17 2348 98.4 62 13 152/78 102.6 94 Room air 05/17 2016 98.4 61 12 154/61 92.2 95 Room air 05/17 1556 98.4 66 20 135/66 89.0 95 Room air PATIENT WEIGHT: Weight (lb): 182 Weight (oz): 0 Weight (kg): 82.554 Medications: Active Meds + DC'd Last 24 Hrs Heparin Sodium 5,000 UNIT Q8HR SUBQ Aspirin 81 MG DAILY PO Clopidogrel Bisulfate 75 MG DAILY PO Epoetin Donny-epbx 4,000 UNIT TuThSa@2100 SUBQ Hydrocodone Bitart/Acetaminophen 1 TAB Q4H PRN P RN PO Venlafaxine HCl 75 MG DAILY PO Furosemide 40 MG DAILY PO Albumin Human 12.5 GM ASDIR PRN IV Heparin Sodium (Porcine) 3,000 UNIT ASDIR PRN DI ALYSIS Lidocaine HCl 0.5 ML ASDIR PRN I-DERMAL (CKD) Mannitol 12.5 GM ASDIR PRN IV Sodium Chloride 2,000 ML ASDIR PRN IV Sodium Chloride 5 ML ASDIR PRN IV Sodium Chloride 10 ML ASDIR PRN IV Sodium Chloride 250 ML ASDIR PRN IV Buspirone HCl 10 MG BEDTIME PO Gabapentin 300 MG BEDTIME PO Metoprolol Tartrate 25 MG BID PO Mupirocin 1 APPLIC BID NASAL (DC) Trazodone HCl 150 MG BEDTIME PO Zolpidem Tartrate 5 MG BEDTIME PRN PRN PO Levetiracetam 500 MG Q12HR PO Polyethylene Glycol 17 GM DAILY PO Acetaminophen 650 MG Q6H PRN PRN PO Hydralazine HCl 10 MG Q6H PRN PRN IV Morphine Sulfate 4 MG Q4H PRN PRN IV (DC) Ondansetron HCl 4 MG Q4H PRN PRN IV Physical Exam General appearance: alert, awake Psych: alert, normal affect, oriented x 3 HEENT: anicteric, mucosal membranes moist, pupil s reactive to light, sclera clear Neck: non-tender, supple, no JVD C-Spine clearance: no midli ne tenderness, NI flexion w/o pain, NI extension w/ o pain Cardiovascular: regular rate rhythm, S1/S2, no m urmur Respiratory: aerating well, clear bilaterally, c lear to auscultation Abdomen: bowel sounds presen t, non-distended, soft, non-tender, no mass palpable Skin: dry, normal temperature, RESIDUAL LIMB W D RESSING Musculoskeletal - general: Musculoskeletal - general: range of motion norm al, Moves alll 4 exts against gravity, MMT BUE 4/5, R HF 3/5, LLE 3+/5. L calv e NT, NO cords. Neuro/CUSTODIAN MANAGER: alert, oriented X 3, CNII-XII intact, normal speech Results Findings/Data: Laboratory Tests: 05/18 08 Chemistry Sodium (134 - 147 mEq/L) 139 Potassium (3.4 - 5.0 mEq/L) 4.2 Chloride (100 - 108 mEq/L) 104 Carbon Dioxide (21 - 33 mEq/l) 28 Anion Gap (0 - 20) 11 BUN (7 - 18 mg/dL) 36 H Creatinine (0.6 - 1.3 mg/dL) 3.5 H Glomerular Filtr Rate (70 - 80) 17.2 L Glucose (70 - 110 mg/dL) 87 Calcium (8.0 - 10.5 mg/dL) 9.0 Phosphorus (2.5 - 4.9 MG/DL) 4.7 Hematology WBC (4.5 - 11.0 x10 3/uL) 9.0 RBC (4.00 - 5.60 x10 6/uL) 2.94 L Hgb (12.5 - 16.9 g/dL) 8.6 L Hct (37.5 - 50.7 %) 27.4 L MCV (81.0 - 99.0 fL) 93.2 MCH (27.0 - 33.0 pg) 29.3 MCHC (33.0 - 37.0 g/dL) 31.4 L RDW (11.5 - 14.5 %) 14.8 H Plt Count (150 - 400 x10 3/uL) 298 MPV (7.0 - 9.0 fL) 8.8 Neut % (Auto) (56.0 - 77.0 %) 66.1 Lymph % (Auto) (14.0 - 32.0 %) 11.9 L Dolores % (Auto) (4.8 - 9.0 %) 9.0 Eos % (Auto) (0.3 - 3.7 %) 12.6 H Baso % (Auto) (0.0 - 2.0 %) 0.2 Neut # (Auto) (2.0 - 7.6 x10 3/uL) 5.96 Lymph # (Auto) (1.0 - 3.8 x10 3/uL) 1.07 Dolores # (Auto) (0.1 - 0.8 x10 3/uL) 0.81 H Eos # (Auto) (0.0 - 0.2 x10 3/uL) 1.14 H Baso # (Auto) (0.0 - 0.2 x10 3/uL) 0.02 Abs Immat Gran (auto) (0.00 - 0.03 x10 3/uL) 0. 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 intake and nutrition Strict decubitus precautions Stable acute left parafalcine subdural h ematona extending into the L tentorium with minimum left to right midline shift also st able on repeat head CT 05/13 No intervention for SDH Tiered pain control Bowel program Keppra for a total of 7 days Continue right AKA incisional dressing care Monitor po intake and nutrition, albumin 3.2 No antiplatelets/anticoagula nts for now-SCD to LLE, okay to restart Plavix in 72 hours from 05/13 as per neurosurgery Patient back on Plavix and aspirin Hemoglobin state on Epogen HGB 8.6 05/18 Decub precautions Advance therapies as tolerated. Medically cleared for transfer to rehab facility Pending Insurance approval therapy update: Gait Device ROLLING WALKER Weightbearing: No Res triction Ambulation Distance: 32' Progression: Forward Ba ckward Lateral, Right Assistance Level: Supervision or Set-up Total time 35 minutes greate r than 50% of the time spent discussing with patient about progress, IRF, rehab plan of care, goals, therapies, labs, medications. EMR and MAR reviewed. All questions answered. Rehab attestation: . at 1507 RPT #:[id number] END OF REPORT 2020-05-18 13:37:00-00:00 [facility] ([facility]) Trauma Progress Note REPORT#:[id number] REPORT STATUS: Signed DATE:05/18/20 TIME: 1337 PATIENT: DARIEN GROSSMAN UNIT #: [id number] ROOM/BED: [place] [id number] : 45 AGE: 74 SEX: M ATTEND: Liliam Espino MD ADM AUTHOR: Derick Clark * ALL edits or amendments must be made on the C-Note/computer document * Subjective Chief Complaint: generalized weakness HPI: no acute events overnight, pt awaiting dc to [facility] . Pt wants rehab on 5E rehab. Review of Systems Neuro: Denies: change in LOC, confusion, headache, visi on change, weakness. Free Text ROS Notes Free Text ROS Notes: Review of systems: As above; otherwise, negativ e to include neurologic, eyes, ENT, CV, respiratory, GI, musculoskeletal, , skin, psychiatric, seven tologic, and allergy. Objective Physical Exam VS/I O: Vital Signs: Date Time Temp Pulse Resp B/P B/P Pulse O2 O2 F low FiO2 Mean Ox Delivery Rate 05/18 1250 98.2 68 18 154/63 93.3 93 Room air 05/18 0410 98.6 63 12 128/64 85.5 94 Room air 05/17 2348 98.4 62 13 152/78 102.6 94 Room air 05/17 2017 98.4 61 12 154/61 92.2 95 Room air 05/17 1556 98.4 66 20 135/66 89.0 95 Room air 24 hour I O ending at 0700: 05/18 0700 04 1900 Intake Total 600 Output Total Balance 600 Intake, Oral 600 Number Voids 1 PATIENT WEIGHT: Weight (lb): 182 Weight (oz): 0 Weight (kg): 82.554 Medications: Active Meds + DC'd Last 24 Hrs Heparin Sodium 5,000 UNIT Q8HR SUBQ Aspirin 81 MG DAILY PO Clopidogrel Bisulfate 75 MG DAILY PO Epoetin Donny-epbx 4,000 UNIT TuThSa@2100 SUBQ Hydrocodone Bitart/Acetaminophen 1 TAB Q4H PRN P RN PO Venlafaxine HCl 75 MG DAILY PO Furosemide 40 MG DAILY PO Albumin Human 12.5 GM ASDIR PRN IV Heparin Sodium (Porcine) 3,000 UNIT ASDIR PRN DI ALYSIS Lidocaine HCl 0.5 ML ASDIR PRN I-DERMAL (CKD) Mannitol 12.5 GM ASDIR PRN IV Sodium Chloride 2,000 ML ASDIR PRN IV Sodium Chloride 5 ML ASDIR PRN IV Sodium Chloride 10 ML ASDIR PRN IV Sodium Chloride 250 ML ASDIR PRN IV Buspirone HCl 10 MG BEDTIME PO Gabapentin 300 MG BEDTIME PO Metoprolol Tartrate 25 MG BID PO Mupirocin 1 APPLIC BID NASAL (DC) Trazodone HCl 150 MG BEDTIME PO Zolpidem Tartrate 5 MG BEDTIME PRN PRN PO Levetiracetam 500 MG Q12HR PO Polyethylene Glycol 17 GM DAILY PO Acetaminophen 650 MG Q6H PRN PRN PO Hydralazine HCl 10 MG Q6H PRN PRN IV Morphine Sulfate 4 MG Q4H PRN PRN IV (DC) Ondansetron HCl 4 MG Q4H PRN PRN IV Head/Eyes: PERRL, EOMI, small hematoma p alpable at posterior occiput, abrasion to right temporal area noted as well ENT: atraumatic Neck: full range of motion, non-tender, trachea midline, no JVD Cardiovascular: BP/pulses equal bilat (radial pu lses present), regular rate rhythm Respiratory/Chest: aerating well, no distress Abdomen: no chest wall deformity or tenderness Pelvis: atraumatic, pelvis stable, no pelvic ten derness Extremities: no tenderness or deformity right AK A noted R AKA Neuro/CUSTODIAN MANAGER: alert, oriented X 3, no motor deficit s Skin: dry, normal temperature Results Findings/Data: Laboratory Tests 05/18 804 Chemistry Sodium (134 - 147 mEq/L) 139 Potassium (3.4 - 5.0 mEq/L) 4.2 Chloride (100 - 108 mEq/L) 104 Carbon Dioxide (21 - 33 mEq/l) 28 Anion Gap (0 - 20) 11 BUN (7 - 18 mg/dL) 36 H Creatinine (0.6 - 1.3 mg/dL) 3.5 H Glomerular Filtr Rate (70 - 80) 17.2 L Glucose (70 - 110 mg/dL) 87 Calcium (8.0 - 10.5 mg/dL) 9.0 Phosphorus (2.5 - 4.9 MG/DL) 4.7 Laboratory Tests 05/18 804 Hematology WBC (4.5 - 11.0 x10 3/uL) 9.0 RBC (4.00 - 5.60 x10 6/uL) 2.94 L Hgb (12.5 - 16.9 g/dL) 8.6 L Hct (37.5 - 50.7 %) 27.4 L MCV (81.0 - 99.0 fL) 93.2 MCH (27.0 - 33.0 pg) 29.3 MCHC (33.0 - 37.0 g/dL) 31.4 L RDW (11.5 - 14.5 %) 14.8 H Plt Count (150 - 400 x10 3/uL) 298 MPV (7.0 - 9.0 fL) 8.8 Neut % (Auto) (56.0 - 77.0 %) 66.1 Lymph % (Auto) (14.0 - 32.0 %) 11.9 L Dolores % (Auto) (4.8 - 9.0 %) 9.0 Eos % (Auto) (0.3 - 3.7 %) 12.6 H Baso % (Auto) (0.0 - 2.0 %) 0.2 Neut # (Auto) (2.0 - 7.6 x10 3/uL) 5.96 Lymph # (Auto) (1.0 - 3.8 x10 3/uL) 1.07 Dolores # (Auto) (0.1 - 0.8 x10 3/uL) 0.81 H Eos # (Auto) (0.0 - 0.2 x10 3/uL) 1.14 H Baso # (Auto) (0.0 - 0.2 x10 3/uL) 0.02 Abs Immat Gran (auto) (0.00 - 0.03 x10 3/uL) 0. 02 Add Manual Diff NO Immature Gran % (0.0 - 2.0 %) 0.2 Nucleated RBC % (0 - 0 %) 0.0 Nucleated RBCs # (Man) (0.0 - 0.1 x10 3/uL) 0.0 0 Results: vital signs stable, tertiary exam perfo rmed Free Text Obj Notes Free Text Obj Notes: Labs and images also reviewed personally. Diagnosis, Assessment Plan Free Text A P: Mechanism: Fall Injuries: SDH Active Problems: ESRD on HD Resolved Problems: n/a Incidental findings: n/a Chronic Medical Problems: CAD, ESRD on HD, dysli pidemia DVT prophylaxis: SCDs, hold lovenox for ICH GI prophylaxis: diet Lines/Be/ETT (placement dates: PIV Consultants: Neurosurg (Denny), Nephrology Procedures: n/a Plan: Pt was seen and evaluated c Dr Balbuena, who dete rmined the POC As a result of this trauma consultation, pt will remain in medsurg Subdural hematoma * Stable acute left parafalc ine subdural hematona extending into the L tentorium with minimum left to right midline shift also st able on repeat head CT 05/13 * Neurosurg consulted and ad vised to hold plavix for 72 hours (05/16) and hold ASA until same date -resumed jj vix and ASA, heparin sq today after no neuro changes noted per neurosurg recs * Maintain SBP <140 * Keppra x 7 days * Medically cleared for transfer to rehab facili ty * PT/OT ESRD on HD * chronic renal failure * nephrology consulted, HD continues Diet: Renal diet Labs: AM PT/OT recs: self transfer to wheelchair DME: wheelchair Code status: Full code Medical Decision Making: In the event the patient is incapacitated and not able to make their own medical decisions, the y have elected Marin Mixon, contact number [phone], to make medical decisions f or them. Dispo: Case mgmt consulted, planned inpatient re hab transfer possible 05/20 Quality: Trauma Gen Surg Advanced Care Plan 65 or Older Discussed with: patient, Patient noting tonight that he wants to be DNR. We discussed what that means an d he is aware- he made that decision for his mother as well Discussion included: code status, surrog ate decision maker per him is a family friend named Marin Anderson Current Medications Current medication review: I attest that the foregoing medication list in t he medical record is true, accurate, and complete to the best of my knowled ge. VTE Prophylaxis - General VTE prophylaxis initiated: no pharmacologic, farshad son: (bleeding risk) Electronically Signed by Derick Clark on 08/31 at 1340 RPT #:[id number] END OF REPORT 2020-05-18 13:37:00-00:00 [facility] ([facility]) Trauma Progress Note REPORT#:[id number] REPORT STATUS: Signed DATE:05/18/20 TIME: 133 PATIENT: DARIEN GROSSMAN UNIT #: [id number] ROOM/BED: [place] [id number] : 45 AGE: 74 SEX: M ATTEND: Liliam Espino MD ADM AUTHOR: Derick Clark PA * ALL edits or amendments must be made on the C-Note/computer document * Derick Clark 05/18/20 1337: Subjective Chief Complaint: generalized weakness HPI: no acute events overnight, pt awaiting dc to IPR . Pt wants rehab on 5E rehab. Review of Systems Neuro: Denies: change in LOC, confusion, headache, visi on change, weakness. Free Text ROS Notes Free Text ROS Notes: Review of systems: As above; otherwise, negativ e to include neurologic, eyes, ENT, CV, respiratory, GI, musculoskeletal, , skin, psychiatric, seven tologic, and allergy. Objective Physical Exam VS/I O: Vital Signs: Date Time Temp Pulse Resp B/P B/P Pulse O2 O2 F low FiO2 Mean Ox Delivery Rate 05/18 1250 98.2 68 18 154/63 93.3 93 Room air 05/18 0410 98.6 63 12 128/64 85.5 94 Room air 05/17 2348 98.4 62 13 152/78 102.6 94 Room air 05/17 2017 98.4 61 12 154/61 92.2 95 Room air 05/17 1556 98.4 66 20 135/66 89.0 95 Room air 24 hour I O ending at 0700: 05/18 0700 05/17 1900 Intake Total 600 Output Total Balance 600 Intake, Oral 600 Number Voids 1 PATIENT WEIGHT: Weight (lb): 182 Weight (oz): 0 Weight (kg): 82.554 Medications: Active Meds + DC'd Last 24 Hrs Heparin Sodium 5,000 UNIT Q8HR SUBQ Aspirin 81 MG DAILY PO Clopidogrel Bisulfate 75 MG DAILY PO Epoetin Donny-epbx 4,000 UNIT TuThSa@2100 SUBQ Hydrocodone Bitart/Acetaminophen 1 TAB Q4H PRN P RN PO Venlafaxine HCl 75 MG DAILY PO Furosemide 40 MG DAILY PO Albumin Human 12.5 GM ASDIR PRN IV Heparin Sodium (Porcine) 3,000 UNIT ASDIR PRN DI ALYSIS Lidocaine HCl 0.5 ML ASDIR PRN I-DERMAL (CKD) Mannitol 12.5 GM ASDIR PRN IV Sodium Chloride 2,000 ML ASDIR PRN IV Sodium Chloride 5 ML ASDIR PRN IV Sodium Chloride 10 ML ASDIR PRN IV Sodium Chloride 250 ML ASDIR PRN IV Buspirone HCl 10 MG BEDTIME PO Gabapentin 300 MG BEDTIME PO Metoprolol Tartrate 25 MG BID PO Mupirocin 1 APPLIC BID NASAL (DC) Trazodone HCl 150 MG BEDTIME PO Zolpidem Tartrate 5 MG BEDTIME PRN PRN PO Levetiracetam 500 MG Q12HR PO Polyethylene Glycol 17 GM DAILY PO Acetaminophen 650 MG Q6H PRN PRN PO Hydralazine HCl 10 MG Q6H PRN PRN IV Morphine Sulfate 4 MG Q4H PRN PRN IV (DC) Ondansetron HCl 4 MG Q4H PRN PRN IV Head/Eyes: PERRL, EOMI, small hematoma p alpable at posterior occiput, abrasion to right temporal area noted as well ENT: atraumatic Neck: full range of motion, non-tender, trachea midline, no JVD Cardiovascular: BP/pulses equal bilat (radial pu lses present), regular rate rhythm Respiratory/Chest: aerating well, no distress Abdomen: no chest wall deformity or tenderness Pelvis: atraumatic, pelvis stable, no pelvic ten derness Extremities: no tenderness or deformity right AK A noted R AKA Neuro/CUSTODIAN MANAGER: alert, oriented X 3, no motor deficit s Skin: dry, normal temperature Results Findings/Data: Laboratory Tests 05/18 0805 Chemistry Sodium (134 - 147 mEq/L) 139 Potassium (3.4 - 5.0 mEq/L) 4.2 Chloride (100 - 108 mEq/L) 104 Carbon Dioxide (21 - 33 mEq/l) 28 Anion Gap (0 - 20) 11 BUN (7 - 18 mg/dL) 36 H Creatinine (0.6 - 1.3 mg/dL) 3.5 H Glomerular Filtr Rate (70 - 80) 17.2 L Glucose (70 - 110 mg/dL) 87 Calcium (8.0 - 10.5 mg/dL) 9.0 Phosphorus (2.5 - 4.9 MG/DL) 4.7 Laboratory Tests 05/18 0805 Hematology WBC (4.5 - 11.0 x10 3/uL) 9.0 RBC (4.00 - 5.60 x10 6/uL) 2.94 L Hgb (12.5 - 16.9 g/dL) 8.6 L Hct (37.5 - 50.7 %) 27.4 L MCV (81.0 - 99.0 fL) 93.2 MCH (27.0 - 33.0 pg) 29.3 MCHC (33.0 - 37.0 g/dL) 31.4 L RDW (11.5 - 14.5 %) 14.8 H Plt Count (150 - 400 x10 3/uL) 298 MPV (7.0 - 9.0 fL) 8.8 Neut % (Auto) (56.0 - 77.0 %) 66.1 Lymph % (Auto) (14.0 - 32.0 %) 11.9 L Dolores % (Auto) (4.8 - 9.0 %) 9.0 Eos % (Auto) (0.3 - 3.7 %) 12.6 H Baso % (Auto) (0.0 - 2.0 %) 0.2 Neut # (Auto) (2.0 - 7.6 x10 3/uL) 5.96 Lymph # (Auto) (1.0 - 3.8 x10 3/uL) 1.07 Dolores # (Auto) (0.1 - 0.8 x10 3/uL) 0.81 H Eos # (Auto) (0.0 - 0.2 x10 3/uL) 1.14 H Baso # (Auto) (0.0 - 0.2 x10 3/uL) 0.02 Abs Immat Gran (auto) (0.00 - 0.03 x10 3/uL) 0. 02 Add Manual Diff NO Immature Gran % (0.0 - 2.0 %) 0.2 Nucleated RBC % (0 - 0 %) 0.0 Nucleated RBCs # (Man) (0.0 - 0.1 x10 3/uL) 0.0 0 Results: vital signs stable, tertiary exam perfo rmed Free Text Obj Notes Free Text Obj Notes: Labs and images also reviewed personally. Diagnosis, Assessment Plan Free Text A P: Mechanism: Fall Injuries: SDH Active Problems: ESRD on HD Resolved Problems: n/a Incidental findings: n/a Chronic Medical Problems: CAD, ESRD on HD, dysli pidemia DVT prophylaxis: SCDs, hold lovenox for ICH GI prophylaxis: diet Lines/Be/ETT (placement dates: PIV Consultants: Neurosurg ([facility]), Nephrology Procedures: n/a Plan: Pt was seen and evaluated c Dr Balbuena, who dete rmined the POC As a result of this trauma consultation, pt will remain in medsurg Subdural hematoma * Stable acute left parafalc ine subdural hematona extending into the L tentorium with minimum left to right midline shift also st able on repeat head CT 05/13 * Neurosurg consulted and ad vised to hold plavix for 72 hours (05/16) and hold ASA until same date -resumed jj vix and ASA, heparin sq today after no neuro changes noted per neurosurg recs * Maintain SBP <140 * Keppra x 7 days * Medically cleared for transfer to rehab facili ty * PT/OT ESRD on HD * chronic renal failure * nephrology consulted, HD continues Diet: Renal diet Labs: AM PT/OT recs: self transfer to wheelchair DME: wheelchair Code status: Full code Medical Decision Making: In the event the patient is incapacitated and not able to make their own medical decisions, the y have elected [facility] M[facility], contact number [phone], to make medical decisions f or them. Dispo: Case mgmt consulted, planned inpatient re hab transfer possible 05/20 Quality: Trauma Gen Surg Advanced Care Plan 65 or Older Discussed with: patient, Patient noting tonight that he wants to be DNR. We discussed what that means an d he is aware- he made that decision for his mother as well Discussion included: code status, surrog ate decision maker per him is a family friend named Marin Anderson Current Medications Current medication review: I attest that the foregoing medication list in t he medical record is true, accurate, and complete to the best of my knowled ge. VTE Prophylaxis - General VTE prophylaxis initiated: no pharmacologic, farshad son: (bleeding risk) Julian Balbuena 05/18/20 1511: Attestations Physician Attestation Agree w/findings plan: I interviewed and examined the patient w ith the ARMAND. I agree with the findings and plan as documented by Derick Clark PA-C. Julian Balbuena MD Attending Surgeon Trauma Surgery Electronically Signed by Derikc Clark on 08/31 at 1340 RPT #:[id number] END OF REPORT 2020-05-18 13:37:00-00:00 [facility] ([facility]) Trauma Progress Note REPORT#:[id number] REPORT STATUS: Signed DATE:05/18/20 TIME: 1337 PATIENT: DARIEN GROSSMAN UNIT #: [id number] ROOM/BED: [place] [id number] : 45 AGE: 74 SEX: M ATTEND: Liliam Espino MD ADM AUTHOR: Derick Clark * ALL edits or amendments must be made on the C-Note/computer document * Derick Clark 05/18/20 1337: Subjective Chief Complaint: generalized weakness HPI: no acute events overnight, pt awaiting dc to IPR . Pt wants rehab on 5E rehab. Review of Systems Neuro: Denies: change in LOC, confusion, headache, visi on change, weakness. Free Text ROS Notes Free Text ROS Notes: Review of systems: As above; otherwise, negativ e to include neurologic, eyes, ENT, CV, respiratory, GI, musculoskeletal, , skin, psychiatric, seven tologic, and allergy. Objective Physical Exam VS/I O: Vital Signs: Date Time Temp Pulse Resp B/P B/P Pulse O2 O2 F low FiO2 Mean Ox Delivery Rate 05/18 1250 98.2 68 18 154/63 93.3 93 Room air 05/18 0410 98.6 63 12 128/64 85.5 94 Room air 05/17 2348 98.4 62 13 152/78 102.6 94 Room air 05/17 2017 98.4 61 12 154/61 92.2 95 Room air 05/17 1556 98.4 66 20 135/66 89.0 95 Room air 24 hour I O ending at 0700: 05/18 0700 05/17 1900 Intake Total 600 Output Total Balance 600 Intake, Oral 600 Number Voids 1 PATIENT WEIGHT: Weight (lb): 182 Weight (oz): 0 Weight (kg): 82.554 Medications: Active Meds + DC'd Last 24 Hrs Heparin Sodium 5,000 UNIT Q8HR SUBQ Aspirin 81 MG DAILY PO Clopidogrel Bisulfate 75 MG DAILY PO Epoetin Donny-epbx 4,000 UNIT TuThSa@2100 SUBQ Hydrocodone Bitart/Acetaminophen 1 TAB Q4H PRN P RN PO Venlafaxine HCl 75 MG DAILY PO Furosemide 40 MG DAILY PO Albumin Human 12.5 GM ASDIR PRN IV Heparin Sodium (Porcine) 3,000 UNIT ASDIR PRN DI ALYSIS Lidocaine HCl 0.5 ML ASDIR PRN I-DERMAL (CKD) Mannitol 12.5 GM ASDIR PRN IV Sodium Chloride 2,000 ML ASDIR PRN IV Sodium Chloride 5 ML ASDIR PRN IV Sodium Chloride 10 ML ASDIR PRN IV Sodium Chloride 250 ML ASDIR PRN IV Buspirone HCl 10 MG BEDTIME PO Gabapentin 300 MG BEDTIME PO Metoprolol Tartrate 25 MG BID PO Mupirocin 1 APPLIC BID NASAL (DC) Trazodone HCl 150 MG BEDTIME PO Zolpidem Tartrate 5 MG BEDTIME PRN PRN PO Levetiracetam 500 MG Q12HR PO Polyethylene Glycol 17 GM DAILY PO Acetaminophen 650 MG Q6H PRN PRN PO Hydralazine HCl 10 MG Q6H PRN PRN IV Morphine Sulfate 4 MG Q4H PRN PRN IV (DC) Ondansetron HCl 4 MG Q4H PRN PRN IV Head/Eyes: PERRL, EOMI, small hematoma p alpable at posterior occiput, abrasion to right temporal area noted as well ENT: atraumatic Neck: full range of motion, non-tender, trachea midline, no JVD Cardiovascular: BP/pulses equal bilat (radial pu lses present), regular rate rhythm Respiratory/Chest: aerating well, no distress Abdomen: no chest wall deformity or tenderness Pelvis: atraumatic, pelvis stable, no pelvic ten derness Extremities: no tenderness or deformity right AK A noted R AKA Neuro/CUSTODIAN MANAGER: alert, oriented X 3, no motor deficit s Skin: dry, normal temperature Results Findings/Data: Laboratory Tests 05/18 804 Chemistry Sodium (134 - 147 mEq/L) 139 Potassium (3.4 - 5.0 mEq/L) 4.2 Chloride (100 - 108 mEq/L) 104 Carbon Dioxide (21 - 33 mEq/l) 28 Anion Gap (0 - 20) 11 BUN (7 - 18 mg/dL) 36 H Creatinine (0.6 - 1.3 mg/dL) 3.5 H Glomerular Filtr Rate (70 - 80) 17.2 L Glucose (70 - 110 mg/dL) 87 Calcium (8.0 - 10.5 mg/dL) 9.0 Phosphorus (2.5 - 4.9 MG/DL) 4.7 Laboratory Tests 05/18 0805 Hematology WBC (4.5 - 11.0 x10 3/uL) 9.0 RBC (4.00 - 5.60 x10 6/uL) 2.94 L Hgb (12.5 - 16.9 g/dL) 8.6 L Hct (37.5 - 50.7 %) 27.4 L MCV (81.0 - 99.0 fL) 93.2 MCH (27.0 - 33.0 pg) 29.3 MCHC (33.0 - 37.0 g/dL) 31.4 L RDW (11.5 - 14.5 %) 14.8 H Plt Count (150 - 400 x10 3/uL) 298 MPV (7.0 - 9.0 fL) 8.8 Neut % (Auto) (56.0 - 77.0 %) 66.1 Lymph % (Auto) (14.0 - 32.0 %) 11.9 L Dolores % (Auto) (4.8 - 9.0 %) 9.0 Eos % (Auto) (0.3 - 3.7 %) 12.6 H Baso % (Auto) (0.0 - 2.0 %) 0.2 Neut # (Auto) (2.0 - 7.6 x10 3/uL) 5.96 Lymph # (Auto) (1.0 - 3.8 x10 3/uL) 1.07 Dolores # (Auto) (0.1 - 0.8 x10 3/uL) 0.81 H Eos # (Auto) (0.0 - 0.2 x10 3/uL) 1.14 H Baso # (Auto) (0.0 - 0.2 x10 3/uL) 0.02 Abs Immat Gran (auto) (0.00 - 0.03 x10 3/uL) 0. 02 Add Manual Diff NO Immature Gran % (0.0 - 2.0 %) 0.2 Nucleated RBC % (0 - 0 %) 0.0 Nucleated RBCs # (Man) (0.0 - 0.1 x10 3/uL) 0.0 0 Results: vital signs stable, tertiary exam perfo rmed Free Text Obj Notes Free Text Obj Notes: Labs and images also reviewed personally. Diagnosis, Assessment Plan Free Text A P: Mechanism: Fall Injuries: SDH Active Problems: ESRD on HD Resolved Problems: n/a Incidental findings: n/a Chronic Medical Problems: CAD, ESRD on HD, dysli pidemia DVT prophylaxis: SCDs, hold lovenox for ICH GI prophylaxis: diet Lines/Be/ETT (placement dates: PIV Consultants: Neurosurg ([facility]), Nephrology Procedures: n/a Plan: Pt was seen and evaluated c Dr Balbuena, who dete rmined the POC As a result of this trauma consultation, pt will remain in medsurg Subdural hematoma * Stable acute left parafalc ine subdural hematona extending into the L tentorium with minimum left to right midline shift also st able on repeat head CT 05/13 * Neurosurg consulted and ad vised to hold plavix for 72 hours (05/16) and hold ASA until same date -resumed jj vix and ASA, heparin sq today after no neuro changes noted per neurosurg recs * Maintain SBP <140 * Keppra x 7 days * Medically cleared for transfer to rehab facili ty * PT/OT ESRD on HD * chronic renal failure * nephrology consulted, HD continues Diet: Renal diet Labs: AM PT/OT recs: self transfer to wheelchair DME: wheelchair Code status: Full code Medical Decision Making: In the event the patient is incapacitated and not able to make their own medical decisions, the y have elected [facility], contact number [phone], to make medical decisions f or them. Dispo: Case mgmt consulted, planned inpatient re hab transfer possible 05/20 Quality: Trauma Gen Surg Advanced Care Plan 65 or Older Discussed with: patient, Patient noting tonight that he wants to be DNR. We discussed what that means an d he is aware- he made that decision for his mother as well Discussion included: code status, surrog ate decision maker per him is a family friend named Marin Anderson Current Medications Current medication review: I attest that the foregoing medication list in t he medical record is true, accurate, and complete to the best of my knowled ge. VTE Prophylaxis - General VTE prophylaxis initiated: no pharmacologic, farshad son: (bleeding risk) Julian Balbuena 05/18/20 1511: Attestations Physician Attestation Agree w/findings plan: I interviewed and examined the patient w ith the ARMAND. I agree with the findings and plan as documented by Derick Clark PA-C. Julian Balbuena MD Attending Surgeon Trauma Surgery Electronically Signed by Derick Clark on 08/31 at 1340 Electronically Signed by Julian Balbuena MD on at 1512 RPT #:[id number] END OF REPORT 2020-05-17 15:17:00-00:00 [facility] Nephrology Progress Note REPORT#:[id number] REPORT STATUS: Signed DATE:05/17/20 TIME: 151 PATIENT: DARIEN GROSSMAN UNIT #: [id number] ROOM/BED: [place] [address] : 45 AGE: 74 SEX: M ATTEND: Liliam Espino MD ADM AUTHOR: Merissa Dillon MD * ALL edits or amendments must be made on the C-Note/computer document * Subjective Chief Complaint: Seen and examined in HD. Reports feeling well to day. No new issues. Objective General VS/I O: Vital Signs: Date Time Temp Pulse Resp B/P B/P Pulse O2 O2 F low FiO2 Mean Ox Delivery Rate 05/17 2016 98.4 61 12 154/61 92.2 95 Room air 05/17 1556 98.4 66 20 135/66 89.0 95 Room air 05/17 1202 98.1 55 20 115/48 70.2 95 Room air / 0950 98.0 05/17 0815 71 15 136/66 89.8 95 05/17 0345 98.8 66 13 149/71 96.9 95 Room air 24 hour I O ending at 0700: 05/17 0700 05/16 1900 Intake Total 600 Output Total 2100 Balance 600 -2100 Intake, Oral 600 Number Voids 1 Output, 2000 Hemodialysis Output, Urine 100 PATIENT WEIGHT: Weight (lb): 182 Weight (oz): 0 Weight (kg): 82.554 Medications Active Meds + DC'd Last 24 Hrs Heparin Sodium 5,000 UNIT Q8HR SUBQ Aspirin 81 MG DAILY PO Clopidogrel Bisulfate 75 MG DAILY PO Epoetin Donny-epbx 4,000 UNIT TuThSa@2100 SUBQ Hydrocodone Bitart/Acetaminophen 1 TAB Q4H PRN P RN PO Venlafaxine HCl 75 MG DAILY PO Furosemide 40 MG DAILY PO Albumin Human 12.5 GM ASDIR PRN IV Heparin Sodium (Porcine) 3,000 UNIT ASDIR PRN DI ALYSIS Lidocaine HCl 0.5 ML ASDIR PRN I-DERMAL (CKD) Mannitol 12.5 GM ASDIR PRN IV Sodium Chloride 2,000 ML ASDIR PRN IV Sodium Chloride 5 ML ASDIR PRN IV Sodium Chloride 10 ML ASDIR PRN IV Sodium Chloride 250 ML ASDIR PRN IV Buspirone HCl 10 MG BEDTIME PO Gabapentin 300 MG BEDTIME PO Metoprolol Tartrate 25 MG BID PO Mupirocin 1 APPLIC BID NASAL Trazodone HCl 150 MG BEDTIME PO Zolpidem Tartrate 5 MG BEDTIME PRN PRN PO Levetiracetam 500 MG Q12HR PO Polyethylene Glycol 17 GM DAILY PO Acetaminophen 650 MG Q6H PRN PRN PO Hydralazine HCl 10 MG Q6H PRN PRN IV Morphine Sulfate 4 MG Q4H PRN PRN IV Ondansetron HCl 4 MG Q4H PRN PRN IV Physical Exam General appearance: alert, awake Head/eyes: atraumatic, normocephalic Cardiovascular: normal heart sounds, regular rat e and rhythm Respiratory: clear to auscultation, normal breat h sounds Abdomen: non-tender, normal bowel sounds, soft Extremities: no edema, RT AKA Neuro/CUSTODIAN MANAGER: alert, oriented X 3, normal speech Hemodialysis access: Type: AV fistula Location: left forearm Results Findings/Data: Laboratory Tests 05/17 0455 Chemistry Sodium (134 - 147 mEq/L) 142 Potassium (3.4 - 5.0 mEq/L) 4.1 Chloride (100 - 108 mEq/L) 107 Carbon Dioxide (21 - 33 mEq/l) 28 Anion Gap (0 - 20) 11 BUN (7 - 18 mg/dL) 20 H Creatinine (0.6 - 1.3 mg/dL) 2.6 H Glomerular Filtr Rate (70 - 80) 24.2 L Glucose (70 - 110 mg/dL) 85 Calcium (8.0 - 10.5 mg/dL) 9.5 Diagnosis, Assessment Plan Free Text A P: 1. ESRD 2. Hyperkalemia 3. Hypertension 4. Status post fall and acute SDH 5. Anemia of chronic kidney disease 6. Coronary artery disease Plan -HD MWF. HD in am -Blood pressure currently stable and home medica tions restarted with holding parameters -Renal diet -Hemoglobin better. On Epogen 3 times weekly -Phos has been stable. -Neurosurgery follow-up. Blood thinners on hold. We will continue to follow. at 2330 RPT #:[id number] END OF REPORT 2020-05-17 10:33:00-00:00 [facility] ([facility]) Trauma Progress Note REPORT#:[id number] REPORT STATUS: Signed DATE:05/17/20 TIME: 1033 PATIENT: DARIEN GROSSMAN UNIT #: [id number] ROOM/BED: [place] [address] : 45 AGE: 74 SEX: M ATTEND: Liliam Espino MD ADM AUTHOR: Derick Clark * ALL edits or amendments must be made on the [employer]/computer document * Subjective Chief Complaint: generalized weakness HPI: no acute events overnight, pt was accepted at [facility] rehab but refused transfer there and wants Rehab here on 5th floor . CM aware and will get new choice letter for patient with plan to admit to inpatient rehab here at [facility] Review of Systems Neuro: Denies: change in LOC, confu willy, dizziness, headache, vision change, weakness. Free Text ROS Notes Free Text ROS Notes: Review of systems: As above; otherwise, negativ e to include neurologic, eyes, ENT, CV, respiratory, GI, musculoskeletal, , skin, psychiatric, seven tologic, and allergy. Objective Physical Exam VS/I O: Vital Signs: Date Time Temp Pulse Resp B/P B/P Pulse O2 O2 F low FiO2 Mean Ox Delivery Rate 05/17 0950 98.0 04/ 0815 71 15 136/66 89.8 95 04/ 0345 98.8 66 13 149/71 96.9 95 Room air 04/05 2310 98.2 54 12 142/62 89.0 96 Room air / 2041 97.9 67 12 164/66 98.4 95 Room air 04/ 1729 64 164/73 103.2 04/ 1726 98.6 04/ 1608 71 20 155/62 93.0 94 Room air / 1418 99.3 68 14 176/73 107.6 96 Nasal cannula 24 hour I O ending at 0700: 05/17 0700 04/ 1900 Intake Total 600 Output Total 2100 Balance 600 -2100 Intake, Oral 600 Number Voids 1 Output, 2000 Hemodialysis Output, Urine 100 PATIENT WEIGHT: Weight (lb): 182 Weight (oz): 0 Weight (kg): 82.554 Medications: Active Meds + DC'd Last 24 Hrs Aspirin 81 MG DAILY PO Clopidogrel Bisulfate 75 MG DAILY PO Epoetin Donny-epbx 4,000 UNIT TuThSa@2100 SUBQ Hydrocodone Bitart/Acetaminophen 1 TAB Q4H PRN P RN PO Venlafaxine HCl 75 MG DAILY PO Furosemide 40 MG DAILY PO Albumin Human 12.5 GM ASDIR PRN IV Heparin Sodium (Porcine) 3,000 UNIT ASDIR PRN DI ALYSIS Lidocaine HCl 0.5 ML ASDIR PRN I-DERMAL (CKD) Mannitol 12.5 GM ASDIR PRN IV Sodium Chloride 2,000 ML ASDIR PRN IV Sodium Chloride 5 ML ASDIR PRN IV Sodium Chloride 10 ML ASDIR PRN IV Sodium Chloride 250 ML ASDIR PRN IV Buspirone HCl 10 MG BEDTIME PO Gabapentin 300 MG BEDTIME PO Metoprolol Tartrate 25 MG BID PO Mupirocin 1 APPLIC BID NASAL Trazodone HCl 150 MG BEDTIME PO Zolpidem Tartrate 5 MG BEDTIME PRN PRN PO Levetiracetam 500 MG Q12HR PO Polyethylene Glycol 17 GM DAILY PO Acetaminophen 650 MG Q6H PRN PRN PO Hydralazine HCl 10 MG Q6H PRN PRN IV Morphine Sulfate 4 MG Q4H PRN PRN IV Ondansetron HCl 4 MG Q4H PRN PRN IV Head/Eyes: PERRL, EOMI, small hematoma p alpable at posterior occiput, abrasion to right temporal area noted as well ENT: atraumatic Neck: full range of motion, non-tender, trachea midline, no JVD C-Spine clearance: no midli ne tenderness, NI flexion w/o pain, NI extension w/ o pain Cardiovascular: BP/pulses equal bilat (radial pu lses present), regular rate rhythm Respiratory/Chest: aerating well, no distress Abdomen: no chest wall deformity or tenderness Back/spine: Back: non-tender, no midline vertebral tend Pelvis: atraumatic, pelvis stable, no pelvic ten derness Extremities: no tenderness or deformity right AK A noted R AKA Neuro/CUSTODIAN MANAGER: alert, oriented X 3, no motor deficit s Skin: dry, normal temperature Results Findings/Data: Laboratory Tests 05/17 0455 Chemistry Sodium (134 - 147 mEq/L) 142 Potassium (3.4 - 5.0 mEq/L) 4.1 Chloride (100 - 108 mEq/L) 107 Carbon Dioxide (21 - 33 mEq/l) 28 Anion Gap (0 - 20) 11 BUN (7 - 18 mg/dL) 20 H Creatinine (0.6 - 1.3 mg/dL) 2.6 H Glomerular Filtr Rate (70 - 80) 24.2 L Glucose (70 - 110 mg/dL) 85 Calcium (8.0 - 10.5 mg/dL) 9.5 Results: vital signs stable, current med profile rev'd Free Text Obj Notes Free Text Obj Notes: Labs and images also reviewed personally. Diagnosis, Assessment Plan Free Text A P: Mechanism: Fall Injuries: SDH Active Problems: ESRD on HD Resolved Problems: n/a Incidental findings: n/a Chronic Medical Problems: CAD, ESRD on HD, dysli pidemia DVT prophylaxis: SCDs, hold lovenox for ICH GI prophylaxis: diet Lines/Be/ETT (placement dates: PIV Consultants: Neurosurg ([facility]), Nephrology Procedures: n/a Plan: Pt was seen and evaluated c Dr Balbuena, who dete rmined the POC As a result of this trauma consultation, pt will remain in medsur Subdural hematoma * Stable acute left parafalc ine subdural hematona extending into the L tentorium with minimum left to right midline shift also st able on repeat head CT 05/13 * Neurosurg consulted and ad vised to hold plavix for 72 hours (05/16) and hold ASA until same date -resumed jj vix and ASA, heparin sq today after no neuro changes noted per neurosurg recs * Maintain SBP <140 * Keppra x 7 days * Medically cleared for transfer to rehab facili ty * PT/OT ESRD on HD * chronic renal failure * nephrology consulted, HD continues Diet: Renal diet Labs: AM PT/OT recs: pending DME: recs pending Code status: Full code Medical Decision Making: In the event the patient is incapacitated and not able to make their own medical decisions, the y have elected [facility], contact number [phone], to make medical decisions f or them. Dispo: Case mgmt consulted, planned inpatient re hab transfer possible 05/20 Quality: Trauma Gen Surg Advanced Care Plan 65 or Older Discussed with: patient, Patient noting tonight that he wants to be DNR. We discussed what that means an d he is aware- he made that decision for his mother as well Discussion included: code status, surrog ate decision maker per him is a family friend named Marin Anderson VTE Prophylaxis - General VTE prophylaxis initiated: no pharmacologic, farshad son: (bleeding risk) Electronically Signed by Derick Clark on 08/01 at 1038 RPT #:[id number] END OF REPORT 2020-05-17 10:33:00-00:00 [facility] ([facility]) Trauma Progress Note REPORT#:[id number] REPORT STATUS: Signed DATE:05/17/20 TIME: 1033 PATIENT: DARIEN GROSSMAN UNIT #: [id number] ROOM/BED: [place] [address] : 45 AGE: 74 SEX: M ATTEND: Liliam Espino MD ADM AUTHOR: Derick Clark * ALL edits or amendments must be made on the [employer]/computer document * Derick Clark 05/17/20 1033: Subjective Chief Complaint: generalized weakness HPI: no acute events overnight, pt was accepted at [facility] rehab but refused transfer there and wants Rehab here on 5th floor . CM aware and will get new choice letter for patient with plan to admit to inpatient rehab here at [facility] Review of Systems Neuro: Denies: change in LOC, confu willy, dizziness, headache, vision change, weakness. Free Text ROS Notes Free Text ROS Notes: Review of systems: As above; otherwise, negativ e to include neurologic, eyes, ENT, CV, respiratory, GI, musculoskeletal, , skin, psychiatric, seven tologic, and allergy. Objective Physical Exam VS/I O: Vital Signs: Date Time Temp Pulse Resp B/P B/P Pulse O2 O2 F low FiO2 Mean Ox Delivery Rate 05/17 0950 98.0 / 0815 71 15 136/66 89.8 95 04/06 0345 98.8 66 13 149/71 96.9 95 Room air 04/05 2310 98.2 54 12 142/62 89.0 96 Room air 04/05 2041 97.9 67 12 164/66 98.4 95 Room air 04/05 1729 64 164/73 103.2 04/05 1726 98.6 04/05 1608 71 20 155/62 93.0 94 Room air 04/05 1418 99.3 68 14 176/73 107.6 96 Nasal cannula 24 hour I O ending at 0700: 04/06 0700 04/05 1900 Intake Total 600 Output Total 2100 Balance 600 -2100 Intake, Oral 600 Number Voids 1 Output, 2000 Hemodialysis Output, Urine 100 PATIENT WEIGHT: Weight (lb): 182 Weight (oz): 0 Weight (kg): 82.554 Medications: Active Meds + DC'd Last 24 Hrs Aspirin 81 MG DAILY PO Clopidogrel Bisulfate 75 MG DAILY PO Epoetin Donny-epbx 4,000 UNIT TuThSa@2100 SUBQ Hydrocodone Bitart/Acetaminophen 1 TAB Q4H PRN P RN PO Venlafaxine HCl 75 MG DAILY PO Furosemide 40 MG DAILY PO Albumin Human 12.5 GM ASDIR PRN IV Heparin Sodium (Porcine) 3,000 UNIT ASDIR PRN DI ALYSIS Lidocaine HCl 0.5 ML ASDIR PRN I-DERMAL (CKD) Mannitol 12.5 GM ASDIR PRN IV Sodium Chloride 2,000 ML ASDIR PRN IV Sodium Chloride 5 ML ASDIR PRN IV Sodium Chloride 10 ML ASDIR PRN IV Sodium Chloride 250 ML ASDIR PRN IV Buspirone HCl 10 MG BEDTIME PO Gabapentin 300 MG BEDTIME PO Metoprolol Tartrate 25 MG BID PO Mupirocin 1 APPLIC BID NASAL Trazodone HCl 150 MG BEDTIME PO Zolpidem Tartrate 5 MG BEDTIME PRN PRN PO Levetiracetam 500 MG Q12HR PO Polyethylene Glycol 17 GM DAILY PO Acetaminophen 650 MG Q6H PRN PRN PO Hydralazine HCl 10 MG Q6H PRN PRN IV Morphine Sulfate 4 MG Q4H PRN PRN IV Ondansetron HCl 4 MG Q4H PRN PRN IV Head/Eyes: PERRL, EOMI, small hematoma p alpable at posterior occiput, abrasion to right temporal area noted as well ENT: atraumatic Neck: full range of motion, non-tender, trachea midline, no JVD C-Spine clearance: no midli ne tenderness, NI flexion w/o pain, NI extension w/ o pain Cardiovascular: BP/pulses equal bilat (radial pu lses present), regular rate rhythm Respiratory/Chest: aerating well, no distress Abdomen: no chest wall deformity or tenderness Back/spine: Back: non-tender, no midline vertebral tend Pelvis: atraumatic, pelvis stable, no pelvic ten derness Extremities: no tenderness or deformity right AK A noted R AKA Neuro/CUSTODIAN MANAGER: alert, oriented X 3, no motor deficit s Skin: dry, normal temperature Results Findings/Data: Laboratory Tests 05/17 0455 Chemistry Sodium (134 - 147 mEq/L) 142 Potassium (3.4 - 5.0 mEq/L) 4.1 Chloride (100 - 108 mEq/L) 107 Carbon Dioxide (21 - 33 mEq/l) 28 Anion Gap (0 - 20) 11 BUN (7 - 18 mg/dL) 20 H Creatinine (0.6 - 1.3 mg/dL) 2.6 H Glomerular Filtr Rate (70 - 80) 24.2 L Glucose (70 - 110 mg/dL) 85 Calcium (8.0 - 10.5 mg/dL) 9.5 Results: vital signs stable, current med profile rev'd Free Text Obj Notes Free Text Obj Notes: Labs and images also reviewed personally. Diagnosis, Assessment Plan Free Text A P: Mechanism: Fall Injuries: SDH Active Problems: ESRD on HD Resolved Problems: n/a Incidental findings: n/a Chronic Medical Problems: CAD, ESRD on HD, dysli pidemia DVT prophylaxis: SCDs, hold lovenox for ICH GI prophylaxis: diet Lines/Be/ETT (placement dates: PIV Consultants: Neurosurg ([facility]), Nephrology Procedures: n/a Plan: Pt was seen and evaluated c Dr Balbuena, who dete rmined the POC As a result of this trauma consultation, pt will remain in medsurg Subdural hematoma * Stable acute left parafalc ine subdural hematona extending into the L tentorium with minimum left to right midline shift also st able on repeat head CT 05/13 * Neurosurg consulted and ad vised to hold plavix for 72 hours (05/16) and hold ASA until same date -resumed jj vix and ASA, heparin sq today after no neuro changes noted per neurosurg recs * Maintain SBP <140 * Keppra x 7 days * Medically cleared for transfer to rehab facili ty * PT/OT ESRD on HD * chronic renal failure * nephrology consulted, HD continues Diet: Renal diet Labs: AM PT/OT recs: pending DME: recs pending Code status: Full code Medical Decision Making: In the event the patient is incapacitated and not able to make their own medical decisions, the y have elected [facility] Mixon, contact number [phone], to make medical decisions f or them. Dispo: Case mgmt consulted, planned inpatient re hab transfer possible 05/20 Quality: Trauma Gen Surg Advanced Care Plan 65 or Older Discussed with: patient, Patient noting tonight that he wants to be DNR. We discussed what that means an d he is aware- he made that decision for his mother as well Discussion included: code status, surrog ate decision maker per him is a family friend named Marin Anderson VTE Prophylaxis - General VTE prophylaxis initiated: no pharmacologic, farshad son: (bleeding risk) Julian Balbuena 05/17/20 1330: Attestations Physician Attestation Agree w/findings plan: I interviewed and examined the patient w ith the ARMAND. I agree with the findings and plan as documented by Derick Clark PA-C. Julian Balbuena MD Attending Surgeon Trauma Surgery Electronically Signed by Derick Clark on 08/01 at 1038 RPT #:[id number] END OF REPORT 2020-05-17 10:33:00-00:00 [facility] ([facility]) Trauma Progress Note REPORT#:[id number] REPORT STATUS: Signed DATE:05/17/20 TIME: 1033 PATIENT: DARIEN GROSSMAN UNIT #: [id number] ROOM/BED: [place] [id number] : 45 AGE: 74 SEX: M ATTEND: Liliam Espino MD ADM AUTHOR: Derick Clark * ALL edits or amendments must be made on the C-Note/computer document * Derick Clark 05/17/20 1033: Subjective Chief Complaint: generalized weakness HPI: no acute events overnight, pt was accepted at [facility] rehab but refused transfer there and wants Rehab here on 5th floor . CM aware and will get new choice letter for patient with plan to admit to inpatient rehab here at [facility] Review of Systems Neuro: Denies: change in LOC, confu willy, dizziness, headache, vision change, weakness. Free Text ROS Notes Free Text ROS Notes: Review of systems: As above; otherwise, negativ e to include neurologic, eyes, ENT, CV, respiratory, GI, musculoskeletal, , skin, psychiatric, seven tologic, and allergy. Objective Physical Exam VS/I O: Vital Signs: Date Time Temp Pulse Resp B/P B/P Pulse O2 O2 F low FiO2 Mean Ox Delivery Rate 05/17 0950 98.0 / 0815 71 15 136/66 89.8 95 / 0345 98.8 66 13 149/71 96.9 95 Room air 04/05 2310 98.2 54 12 142/62 89.0 96 Room air 04/05 2041 97.9 67 12 164/66 98.4 95 Room air 04/05 1729 64 164/73 103.2 04/ 1726 98.6 04/ 1608 71 20 155/62 93.0 94 Room air 04/05 1418 99.3 68 14 176/73 107.6 96 Nasal cannula 24 hour I O ending at 0700: 04/06 0700 04/05 1900 Intake Total 600 Output Total 2100 Balance 600 -2100 Intake, Oral 600 Number Voids 1 Output, 2000 Hemodialysis Output, Urine 100 PATIENT WEIGHT: Weight (lb): 182 Weight (oz): 0 Weight (kg): 82.554 Medications: Active Meds + DC'd Last 24 Hrs Aspirin 81 MG DAILY PO Clopidogrel Bisulfate 75 MG DAILY PO Epoetin Donny-epbx 4,000 UNIT TuThSa@2100 SUBQ Hydrocodone Bitart/Acetaminophen 1 TAB Q4H PRN P RN PO Venlafaxine HCl 75 MG DAILY PO Furosemide 40 MG DAILY PO Albumin Human 12.5 GM ASDIR PRN IV Heparin Sodium (Porcine) 3,000 UNIT ASDIR PRN DI ALYSIS Lidocaine HCl 0.5 ML ASDIR PRN I-DERMAL (CKD) Mannitol 12.5 GM ASDIR PRN IV Sodium Chloride 2,000 ML ASDIR PRN IV Sodium Chloride 5 ML ASDIR PRN IV Sodium Chloride 10 ML ASDIR PRN IV Sodium Chloride 250 ML ASDIR PRN IV Buspirone HCl 10 MG BEDTIME PO Gabapentin 300 MG BEDTIME PO Metoprolol Tartrate 25 MG BID PO Mupirocin 1 APPLIC BID NASAL Trazodone HCl 150 MG BEDTIME PO Zolpidem Tartrate 5 MG BEDTIME PRN PRN PO Levetiracetam 500 MG Q12HR PO Polyethylene Glycol 17 GM DAILY PO Acetaminophen 650 MG Q6H PRN PRN PO Hydralazine HCl 10 MG Q6H PRN PRN IV Morphine Sulfate 4 MG Q4H PRN PRN IV Ondansetron HCl 4 MG Q4H PRN PRN IV Head/Eyes: PERRL, EOMI, small hematoma p alpable at posterior occiput, abrasion to right temporal area noted as well ENT: atraumatic Neck: full range of motion, non-tender, trachea midline, no JVD C-Spine clearance: no midli ne tenderness, NI flexion w/o pain, NI extension w/ o pain Cardiovascular: BP/pulses equal bilat (radial pu lses present), regular rate rhythm Respiratory/Chest: aerating well, no distress Abdomen: no chest wall deformity or tenderness Back/spine: Back: non-tender, no midline vertebral tend Pelvis: atraumatic, pelvis stable, no pelvic ten derness Extremities: no tenderness or deformity right AK A noted R AKA Neuro/CUSTODIAN MANAGER: alert, oriented X 3, no motor deficit s Skin: dry, normal temperature Results Findings/Data: Laboratory Tests 05/17 0455 Chemistry Sodium (134 - 147 mEq/L) 142 Potassium (3.4 - 5.0 mEq/L) 4.1 Chloride (100 - 108 mEq/L) 107 Carbon Dioxide (21 - 33 mEq/l) 28 Anion Gap (0 - 20) 11 BUN (7 - 18 mg/dL) 20 H Creatinine (0.6 - 1.3 mg/dL) 2.6 H Glomerular Filtr Rate (70 - 80) 24.2 L Glucose (70 - 110 mg/dL) 85 Calcium (8.0 - 10.5 mg/dL) 9.5 Results: vital signs stable, current med profile rev'd Free Text Obj Notes Free Text Obj Notes: Labs and images also reviewed personally. Diagnosis, Assessment Plan Free Text A P: Mechanism: Fall Injuries: SDH Active Problems: ESRD on HD Resolved Problems: n/a Incidental findings: n/a Chronic Medical Problems: CAD, ESRD on HD, dysli pidemia DVT prophylaxis: SCDs, hold lovenox for ICH GI prophylaxis: diet Lines/Be/ETT (placement dates: PIV Consultants: Neurosurg ([facility]), Nephrology Procedures: n/a Plan: Pt was seen and evaluated c Dr Balbuena, who dete rmined the POC As a result of this trauma consultation, pt will remain in medsurg Subdural hematoma * Stable acute left parafalc ine subdural hematona extending into the L tentorium with minimum left to right midline shift also st able on repeat head CT 05/13 * Neurosurg consulted and ad vised to hold plavix for 72 hours (05/16) and hold ASA until same date -resumed jj vix and ASA, heparin sq today after no neuro changes noted per neurosurg recs * Maintain SBP <140 * Keppra x 7 days * Medically cleared for transfer to rehab facili ty * PT/OT ESRD on HD * chronic renal failure * nephrology consulted, HD continues Diet: Renal diet Labs: AM PT/OT recs: pending DME: recs pending Code status: Full code Medical Decision Making: In the event the patient is incapacitated and not able to make their own medical decisions, the y have elected [facility] M[facility], contact number [phone], to make medical decisions f or them. Dispo: Case mgmt consulted, planned inpatient re hab transfer possible 05/20 Quality: Trauma Gen Surg Advanced Care Plan 65 or Older Discussed with: patient, Patient noting tonight that he wants to be DNR. We discussed what that means an d he is aware- he made that decision for his mother as well Discussion included: code status, surrog ate decision maker per him is a family friend named Marin Anderson VTE Prophylaxis - General VTE prophylaxis initiated: no pharmacologic, farshad son: (bleeding risk) Julian Balbuena 05/17/20 1330: Attestations Physician Attestation Agree w/findings plan: I interviewed and examined the patient w ith the ARMAND. I agree with the findings and plan as documented by Derick Clark PA-C. Julian Balbuena MD Attending Surgeon Trauma Surgery Electronically Signed by Derick Clark on 08/01 at 1038 Electronically Signed by Julian Balbuena MD on at 1331 RPT #:[id number] END OF REPORT 2020-05-17 06:37:00-00:00 [facility] Rehab Progress Note REPORT#:[id number] REPORT STATUS: Signed DATE:05/17/20 TIME: 636 PATIENT: DARIEN GROSSMAN UNIT #: [id number] ROOM/BED: [place] [id number] : 45 AGE: 74 SEX: M ATTEND: Liliam Espino MD ADM AUTHOR: Clint Dunaway * ALL edits or amendments must be made on the C-Note/computer document * Subjective Chief complaint: Rehab follow-up C/o of amputatin site pain Slept fair Eating well Denies PATEL/N/V/D 14 systems reviewed and neg. except that above. Objective General VS: Vital Signs: Date Time Temp Pulse Resp B/P B/P Pulse O2 O2 F low FiO2 Mean Ox Delivery Rate 05/17 0345 98.8 66 13 149/71 96.9 95 Room air 05/16 2310 98.2 54 12 142/62 89.0 96 Room air / 2041 97.9 67 12 164/66 98.4 95 Room air / 1729 64 164/73 103.2 04/ 1726 98.6 04/ 1608 71 20 155/62 93.0 94 Room air / 1418 99.3 68 14 176/73 107.6 96 Nasal cannula 05/16 0805 98.2 59 16 154/67 96.3 94 Room air PATIENT WEIGHT: Weight (lb): 182 Weight (oz): 0 Weight (kg): 82.554 Medications: Active Meds + DC'd Last 24 Hrs Aspirin 81 MG DAILY PO Clopidogrel Bisulfate 75 MG DAILY PO Epoetin Donny-epbx 4,000 UNIT TuThSa@2100 SUBQ Hydrocodone Bitart/Acetaminophen 1 TAB Q4H PRN P RN PO Venlafaxine HCl 75 MG DAILY PO Furosemide 40 MG DAILY PO Albumin Human 12.5 GM ASDIR PRN IV Heparin Sodium (Porcine) 3,000 UNIT ASDIR PRN DI ALYSIS Lidocaine HCl 0.5 ML ASDIR PRN I-DERMAL (CKD) Mannitol 12.5 GM ASDIR PRN IV Sodium Chloride 2,000 ML ASDIR PRN IV Sodium Chloride 5 ML ASDIR PRN IV Sodium Chloride 10 ML ASDIR PRN IV Sodium Chloride 250 ML ASDIR PRN IV Buspirone HCl 10 MG BEDTIME PO Gabapentin 300 MG BEDTIME PO Metoprolol Tartrate 25 MG BID PO Mupirocin 1 APPLIC BID NASAL Trazodone HCl 150 MG BEDTIME PO Zolpidem Tartrate 5 MG BEDTIME PRN PRN PO Levetiracetam 500 MG Q12HR PO Polyethylene Glycol 17 GM DAILY PO Acetaminophen 650 MG Q6H PRN PRN PO Hydralazine HCl 10 MG Q6H PRN PRN IV Morphine Sulfate 4 MG Q4H PRN PRN IV Ondansetron HCl 4 MG Q4H PRN PRN IV Functional Progress Functional progress: Pre- Gait Mobility Y/N: Yes Safety addressed through use of: Gait Belt Verbal Cues Tactile Cues Gait Device ROLLING WALKER Weightbearing: No Restriction Ambulation Distance: 32' Progression: Forward Backward Lateral, Right Lateral, Left Assistance Level: Supervision or Set-up Advanced Progression: No Post [place] Precautions: In Chair Call Light in Reach Physical Exam General appearance: alert, awake, no acute distr ess Psych: alert, normal affect, oriented x 3 HEENT: anicteric, mucosal membranes moist, pupil s reactive to light, sclera clear Neck: non-tender, supple, no JVD C-Spine clearance: no midli ne tenderness, NI flexion w/o pain, NI extension w/ o pain Cardiovascular: regular rate rhythm, S1/S2, no m urmur Respiratory: aerating well, clear bilaterally, c lear to auscultation Abdomen: bowel sounds presen t, non-distended, soft, non-tender, no mass palpable Skin: dry, normal temperature, RESIDUAL LIMB W D RESSING Musculoskeletal - general: Musculoskeletal - general: range of motion norm al, Moves alll 4 exts against gravity, MMT BUE 4/5, R HF 3/5, LLE 3+/5. L calv e NT, NO cords. Neuro/CUSTODIAN MANAGER: alert, oriented X 3, CNII-XII intact, normal speech Results Findings/Data: Laboratory Tests: 05/16 0915 Chemistry Sodium (134 - 147 mEq/L) 138 Potassium (3.4 - 5.0 mEq/L) 4.4 Chloride (100 - 108 mEq/L) 104 Carbon Dioxide (21 - 33 mEq/l) 31 Anion Gap (0 - 20) 8 BUN (7 - 18 mg/dL) 37 H Creatinine (0.6 - 1.3 mg/dL) 3.7 H Glomerular Filtr Rate (70 - 80) 16.1 L Glucose (70 - 110 mg/dL) 92 Calcium (8.0 - 10.5 mg/dL) 8.7 Phosphorus (2.5 - 4.9 MG/DL) 5.2 H Magnesium (1.80 - 2.40 mg/dL) 1.89 Hematology WBC (4.5 - 11.0 x10 3/uL) 8.8 RBC (4.00 - 5.60 x10 6/uL) 2.86 L Hgb (12.5 - 16.9 g/dL) 8.5 L Hct (37.5 - 50.7 %) 27.4 L MCV (81.0 - 99.0 fL) 95.8 MCH (27.0 - 33.0 pg) 29.7 MCHC (33.0 - 37.0 g/dL) 31.0 L RDW (11.5 - 14.5 %) 14.9 H Plt Count (150 - 400 x10 3/uL) 264 MPV (7.0 - 9.0 fL) 8.8 Neut % (Auto) (56.0 - 77.0 %) 64.9 Lymph % (Auto) (14.0 - 32.0 %) 11.5 L Dolores % (Auto) (4.8 - 9.0 %) 9.5 H Eos % (Auto) (0.3 - 3.7 %) 13.3 H Baso % (Auto) (0.0 - 2.0 %) 0.5 Neut # (Auto) (2.0 - 7.6 x10 3/uL) 5.71 Lymph # (Auto) (1.0 - 3.8 x10 3/uL) 1.01 Dolores # (Auto) (0.1 - 0.8 x10 3/uL) 0.84 H Eos # (Auto) (0.0 - 0.2 x10 3/uL) 1.17 H Baso # (Auto) (0.0 - 0.2 x10 3/uL) 0.04 Abs Immat Gran (auto) (0.00 - 0.03 x10 3/uL) 0. 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 intake and nutrition Strict decubitus precautions Stable acute left parafalcine subdural h ematona extending into the L tentorium with minimum left to right midline shift also st able on repeat head CT 05/13 Neurosurg consulted and advised to hold plavix for 72 hours (05/16) and hold ASA until same date No intervention for SDH Tiered pain control Bowel program Continue right AKA incisional dressing care Monitor po intake and nutrition, albumin 3.2 No antiplatelets/anticoagula nts for now-SCD to LLE, okay to restart Plavix in 72 hours from 05/13 as per neurosurgery Patient back on Plavix and aspirin Hemoglobin state on Epogen Decub precautions Advance therapies as tolerated. Case management states that the patient came fro [facility] and wishes to go back to [facility] rehab. Pt. states he would like to go to IRF here if he could. Continue to follow while the patient was hospitalized and provide rehabilitation services Total time 35 minutes greate r than 50% of the time spent discussing with patient about progress, IRF, rehab plan of care, goals, therapies, labs, medications. EMR and MAR reviewed. All questions answered. Rehab attestation: . at 2049 RPT #:[id number] END OF REPORT 2020-05-16 13:50:00-00:00 [facility] Nephrology Progress Note REPORT#:[id number] REPORT STATUS: Signed DATE:05/16/20 TIME: 1350 PATIENT: DARIEN GROSSMAN UNIT #: [id number] ROOM/BED: [place] [id number] : 45 AGE: 74 SEX: M ATTEND: Liliam Espino MD ADM AUTHOR: Jenny Banegas * ALL edits or amendments must be made on the C-Note/computer document * Subjective Chief Complaint: Seen and examined in HD. Reports feeling well to day, eager to be done with treatment. No new issues. Review of Systems All systems rev neg: except as marked Objective General VS/I O: Vital Signs: Date Time Temp Pulse Resp B/P B/P Pulse O2 O2 F low FiO2 Mean Ox Delivery Rate 05/16 08 98.2 59 16 154/67 96.3 94 Room air 05/16 0318 98.1 64 17 129/65 85.9 93 Room air 05/16 2115 98.2 72 20 145/67 93.0 98 05/15 1927 98.1 66 17 163/72 102.6 96 Room air 05/15 1543 98.2 63 18 151/75 100.2 96 Room air 24 hour I O ending at 0700: 05/16 0700 05/15 1900 Intake Total 200 1500 Output Total Balance 200 1500 Intake, Oral 200 1500 Number Voids 1 Patient 82.554 kg Weight PATIENT WEIGHT: Weight (lb): 182 Weight (oz): 0 Weight (kg): 82.554 Medications Active Meds + DC'd Last 24 Hrs Aspirin 81 MG DAILY PO Clopidogrel Bisulfate 75 MG DAILY PO Epoetin Donny-epbx 4,000 UNIT TuThSa@2100 SUBQ Hydrocodone Bitart/Acetaminophen 1 TAB Q4H PRN P RN PO Venlafaxine HCl 75 MG DAILY PO Furosemide 40 MG DAILY PO Albumin Human 12.5 GM ASDIR PRN IV Heparin Sodium (Porcine) 3,000 UNIT ASDIR PRN DI ALYSIS Lidocaine HCl 0.5 ML ASDIR PRN I-DERMAL (CKD) Mannitol 12.5 GM ASDIR PRN IV Sodium Chloride 2,000 ML ASDIR PRN IV Sodium Chloride 5 ML ASDIR PRN IV Sodium Chloride 10 ML ASDIR PRN IV Sodium Chloride 250 ML ASDIR PRN IV Buspirone HCl 10 MG BEDTIME PO Gabapentin 300 MG BEDTIME PO Metoprolol Tartrate 25 MG BID PO Mupirocin 1 APPLIC BID NASAL Trazodone HCl 150 MG BEDTIME PO Zolpidem Tartrate 5 MG BEDTIME PRN PRN PO Levetiracetam 500 MG Q12HR PO Polyethylene Glycol 17 GM DAILY PO Acetaminophen 650 MG Q6H PRN PRN PO Hydralazine HCl 10 MG Q6H PRN PRN IV Morphine Sulfate 4 MG Q4H PRN PRN IV Ondansetron HCl 4 MG Q4H PRN PRN IV Physical Exam General appearance: alert, awake, oriented Head/eyes: atraumatic, normocephalic Cardiovascular: normal heart sounds, regular rat e and rhythm Respiratory: clear to auscultation, normal breat h sounds Abdomen: non-tender, normal bowel sounds, soft Extremities: no edema, RT AKA Neuro/CUSTODIAN MANAGER: alert, oriented X 3, normal speech Hemodialysis access: Type: AV fistula Location: left forearm Results Findings/Data: Laboratory Tests 05/16 914 Chemistry Sodium (134 - 147 mEq/L) 138 Potassium (3.4 - 5.0 mEq/L) 4.4 Chloride (100 - 108 mEq/L) 104 Carbon Dioxide (21 - 33 mEq/l) 31 Anion Gap (0 - 20) 8 BUN (7 - 18 mg/dL) 37 H Creatinine (0.6 - 1.3 mg/dL) 3.7 H Glomerular Filtr Rate (70 - 80) 16.1 L Glucose (70 - 110 mg/dL) 92 Calcium (8.0 - 10.5 mg/dL) 8.7 Phosphorus (2.5 - 4.9 MG/DL) 5.2 H Magnesium (1.80 - 2.40 mg/dL) 1.89 Laboratory Tests 05/16 0915 Hematology WBC (4.5 - 11.0 x10 3/uL) 8.8 RBC (4.00 - 5.60 x10 6/uL) 2.86 L Hgb (12.5 - 16.9 g/dL) 8.5 L Hct (37.5 - 50.7 %) 27.4 L MCV (81.0 - 99.0 fL) 95.8 MCH (27.0 - 33.0 pg) 29.7 MCHC (33.0 - 37.0 g/dL) 31.0 L RDW (11.5 - 14.5 %) 14.9 H Plt Count (150 - 400 x10 3/uL) 264 MPV (7.0 - 9.0 fL) 8.8 Neut % (Auto) (56.0 - 77.0 %) 64.9 Lymph % (Auto) (14.0 - 32.0 %) 11.5 L Dolores % (Auto) (4.8 - 9.0 %) 9.5 H Eos % (Auto) (0.3 - 3.7 %) 13.3 H Baso % (Auto) (0.0 - 2.0 %) 0.5 Neut # (Auto) (2.0 - 7.6 x10 3/uL) 5.71 Lymph # (Auto) (1.0 - 3.8 x10 3/uL) 1.01 Dolores # (Auto) (0.1 - 0.8 x10 3/uL) 0.84 H Eos # (Auto) (0.0 - 0.2 x10 3/uL) 1.17 H Baso # (Auto) (0.0 - 0.2 x10 3/uL) 0.04 Abs Immat Gran (auto) (0.00 - 0.03 x10 3/uL) 0. 03 Add Manual Diff NO Immature Gran % (0.0 - 2.0 %) 0.3 Nucleated RBC % (0 - 0 %) 0.0 Nucleated RBCs # (Man) (0.0 - 0.1 x10 3/uL) 0.0 0 Diagnosis, Assessment Plan Free Text A P: 1. ESRD 2. Hyperkalemia 3. Hypertension 4. Status post fall and acute SDH 5. Anemia of chronic kidney disease 6. Coronary artery disease Plan -HD MWF. Seen on treatment. Tolerating with UF g oal of 2L. -Blood pressure currently stable and home medica tions restarted with holding parameters -Renal diet -Hemoglobin better. On Epogen 3 times weekly -Phos has been stable. -Neurosurgery follow-up. Blood thinners on hold. We will continue to follow. This plan of care was discussed with Dr Dana barnhart. at 1451 RPT #:[id number] END OF REPORT 2020-05-16 13:50:00-00:00 [facility] Nephrology Progress Note REPORT#:[id number] REPORT STATUS: Signed DATE:05/16/20 TIME: 1349 PATIENT: DARIEN GROSSMAN UNIT #: [id number] ROOM/BED: [place] [id number] : 45 AGE: 74 SEX: M ATTEND: Liliam Espino MD ADM AUTHOR: Jenny Banegas * ALL edits or amendments must be made on the C-Note/computer document * Jenny Banegas 05/16/20 1350: Subjective Chief Complaint: Seen and examined in HD. Reports feeling well to day, eager to be done with treatment. No new issues. Review of Systems All systems rev neg: except as marked Objective General VS/I O: Vital Signs: Date Time Temp Pulse Resp B/P B/P Pulse O2 O2 Flow FiO2 Mean Ox Delivery Rate 05/16 804 98.2 59 16 154/67 96.3 94 Room air 05/16 317 98.1 64 17 129/65 85.9 93 Room air 05/156 98.2 72 20 145/67 93.0 98 / 1927 98.1 66 17 163/72 102.6 96 Room air 05/15 1543 98.2 63 18 151/75 100.2 96 Room air 24 hour I O ending at 0700: 05/16 0700 04 1900 Intake Total 200 1500 Output Total Balance 200 1500 Intake, Oral 200 1500 Number Voids 1 Patient 82.554 kg Weight PATIENT WEIGHT: Weight (lb): 182 Weight (oz): 0 Weight (kg): 82.554 Medications Active Meds + DC'd Last 24 Hrs Aspirin 81 MG DAILY PO Clopidogrel Bisulfate 75 MG DAILY PO Epoetin Donny-epbx 4,000 UNIT TuThSa@2100 SUBQ Hydrocodone Bitart/Acetaminophen 1 TAB Q4H PRN P RN PO Venlafaxine HCl 75 MG DAILY PO Furosemide 40 MG DAILY PO Albumin Human 12.5 GM ASDIR PRN IV Heparin Sodium (Porcine) 3,000 UNIT ASDIR PRN DI ALYSIS Lidocaine HCl 0.5 ML ASDIR PRN I-DERMAL (CKD) Mannitol 12.5 GM ASDIR PRN IV Sodium Chloride 2,000 ML ASDIR PRN IV Sodium Chloride 5 ML ASDIR PRN IV Sodium Chloride 10 ML ASDIR PRN IV Sodium Chloride 250 ML ASDIR PRN IV Buspirone HCl 10 MG BEDTIME PO Gabapentin 300 MG BEDTIME PO Metoprolol Tartrate 25 MG BID PO Mupirocin 1 APPLIC BID NASAL Trazodone HCl 150 MG BEDTIME PO Zolpidem Tartrate 5 MG BEDTIME PRN PRN PO Levetiracetam 500 MG Q12HR PO Polyethylene Glycol 17 GM DAILY PO Acetaminophen 650 MG Q6H PRN PRN PO Hydralazine HCl 10 MG Q6H PRN PRN IV Morphine Sulfate 4 MG Q4H PRN PRN IV Ondansetron HCl 4 MG Q4H PRN PRN IV Physical Exam General appearance: alert, awake, oriented Head/eyes: atraumatic, normocephalic Cardiovascular: normal heart sounds, regular rat e and rhythm Respiratory: clear to auscultation, normal breat h sounds Abdomen: non-tender, normal bowel sounds, soft Extremities: no edema, RT AKA Neuro/CUSTODIAN MANAGER: alert, oriented X 3, normal speech Hemodialysis access: Type: AV fistula Location: left forearm Results Findings/Data: Laboratory Tests 05/16 914 Chemistry Sodium (134 - 147 mEq/L) 138 Potassium (3.4 - 5.0 mEq/L) 4.4 Chloride (100 - 108 mEq/L) 104 Carbon Dioxide (21 - 33 mEq/l) 31 Anion Gap (0 - 20) 8 BUN (7 - 18 mg/dL) 37 H Creatinine (0.6 - 1.3 mg/dL) 3.7 H Glomerular Filtr Rate (70 - 80) 16.1 L Glucose (70 - 110 mg/dL) 92 Calcium (8.0 - 10.5 mg/dL) 8.7 Phosphorus (2.5 - 4.9 MG/DL) 5.2 H Magnesium (1.80 - 2.40 mg/dL) 1.89 Laboratory Tests 05/16 914 Hematology WBC (4.5 - 11.0 x10 3/uL) 8.8 RBC (4.00 - 5.60 x10 6/uL) 2.86 L Hgb (12.5 - 16.9 g/dL) 8.5 L Hct (37.5 - 50.7 %) 27.4 L MCV (81.0 - 99.0 fL) 95.8 MCH (27.0 - 33.0 pg) 29.7 MCHC (33.0 - 37.0 g/dL) 31.0 L RDW (11.5 - 14.5 %) 14.9 H Plt Count (150 - 400 x10 3/uL) 264 MPV (7.0 - 9.0 fL) 8.8 Neut % (Auto) (56.0 - 77.0 %) 64.9 Lymph % (Auto) (14.0 - 32.0 %) 11.5 L Dolores % (Auto) (4.8 - 9.0 %) 9.5 H Eos % (Auto) (0.3 - 3.7 %) 13.3 H Baso % (Auto) (0.0 - 2.0 %) 0.5 Neut # (Auto) (2.0 - 7.6 x10 3/uL) 5.71 Lymph # (Auto) (1.0 - 3.8 x10 3/uL) 1.01 Dolores # (Auto) (0.1 - 0.8 x10 3/uL) 0.84 H Eos # (Auto) (0.0 - 0.2 x10 3/uL) 1.17 H Baso # (Auto) (0.0 - 0.2 x10 3/uL) 0.04 Abs Immat Gran (auto) (0.00 - 0.03 x10 3/uL) 0. 03 Add Manual Diff NO Immature Gran % (0.0 - 2.0 %) 0.3 Nucleated RBC % (0 - 0 %) 0.0 Nucleated RBCs # (Man) (0.0 - 0.1 x10 3/uL) 0.0 0 Diagnosis, Assessment Plan Free Text A P: 1. ESRD 2. Hyperkalemia 3. Hypertension 4. Status post fall and acute SDH 5. Anemia of chronic kidney disease 6. Coronary artery disease Plan -HD MWF. Seen on treatment. Tolerating with UF g oal of 2L. -Blood pressure currently stable and home medica tions restarted with holding parameters -Renal diet -Hemoglobin better. On Epogen 3 times weekly -Phos has been stable. -Neurosurgery follow-up. Blood thinners on hold. We will continue to follow. This plan of care was discussed with Dr Dana barnhart. Anders Quick 05/16/20 1726: Attestations Physician Attestation Agree w/findings plan: I have reviewed the history physical and plan wi ORVILLE Soler and have reviewed the note with her. Patient is s een on hemodialysis. I concur with the note written by Jenny and agree with the jj n of care. at 1451 RPT #:[id number] END OF REPORT 2020-05-16 13:50:00-00:00 [facility] Progress Note REPORT#:[id number] REPORT STATUS: Signed DATE:05/16/20 TIME: 1350 PATIENT: DARIEN GROSSMAN UNIT #: [id number] ROOM/BED: [place] [id number] : 45 AGE: 74 SEX: M ATTEND: Liliam Espino MD ADM AUTHOR: Jenny Banegas * ALL edits or amendments must be made on the C-Note/computer document * Jenny Banegas 05/16/20 1350: Subjective Chief Complaint: Seen and examined in HD. Reports feeling well to day, eager to be done with treatment. No new issues. Review of Systems All systems rev neg: except as marked Objective General VS/I O: Vital Signs: Date Time Temp Pulse Resp B/P B/P Pulse O2 O2 F low FiO2 Mean Ox Delivery Rate 05/16 0805 98.2 59 16 154/67 96.3 94 Room air 05/16 0318 98.1 64 17 129/65 85.9 93 Room air 05/15 2116 98.2 72 20 145/67 93.0 98 05/15 1927 98.1 66 17 163/72 102.6 96 Room air 05/15 1543 98.2 63 18 151/75 100.2 96 Room air 24 hour I O ending at 0700: 05/16 0700 05/15 1900 Intake Total 200 1500 Output Total Balance 200 1500 Intake, Oral 200 1500 Number Voids 1 Patient 82.554 kg Weight PATIENT WEIGHT: Weight (lb): 182 Weight (oz): 0 Weight (kg): 82.554 Medications Active Meds + DC'd Last 24 Hrs Aspirin 81 MG DAILY PO Clopidogrel Bisulfate 75 MG DAILY PO Epoetin Donny-epbx 4,000 UNIT TuTa@2100 SUBQ Hydrocodone Bitart/Acetaminophen 1 TAB Q4H PRN P RN PO Venlafaxine HCl 75 MG DAILY PO Furosemide 40 MG DAILY PO Albumin Human 12.5 GM ASDIR PRN IV Heparin Sodium (Porcine) 3,000 UNIT ASDIR PRN DI ALYSIS Lidocaine HCl 0.5 ML ASDIR PRN I-DERMAL (CKD) Mannitol 12.5 GM ASDIR PRN IV Sodium Chloride 2,000 ML ASDIR PRN IV Sodium Chloride 5 ML ASDIR PRN IV Sodium Chloride 10 ML ASDIR PRN IV Sodium Chloride 250 ML ASDIR PRN IV Buspirone HCl 10 MG BEDTIME PO Gabapentin 300 MG BEDTIME PO Metoprolol Tartrate 25 MG BID PO Mupirocin 1 APPLIC BID NASAL Trazodone HCl 150 MG BEDTIME PO Zolpidem Tartrate 5 MG BEDTIME PRN PRN PO Levetiracetam 500 MG Q12HR PO Polyethylene Glycol 17 GM DAILY PO Acetaminophen 650 MG Q6H PRN PRN PO Hydralazine HCl 10 MG Q6H PRN PRN IV Morphine Sulfate 4 MG Q4H PRN PRN IV Ondansetron HCl 4 MG Q4H PRN PRN IV Physical Exam General appearance: alert, awake, oriented Head/eyes: atraumatic, normocephalic Cardiovascular: normal heart sounds, regular rat e and rhythm Respiratory: clear to auscultation, normal breat h sounds Abdomen: non-tender, normal bowel sounds, soft Extremities: no edema, RT AKA Neuro/CUSTODIAN MANAGER: alert, oriented X 3, normal speech Hemodialysis access: Type: AV fistula Location: left forearm Results Findings/Data: Laboratory Tests 05/16 914 Chemistry Sodium (134 - 147 mEq/L) 138 Potassium (3.4 - 5.0 mEq/L) 4.4 Chloride (100 - 108 mEq/L) 104 Carbon Dioxide (21 - 33 mEq/l) 31 Anion Gap (0 - 20) 8 BUN (7 - 18 mg/dL) 37 H Creatinine (0.6 - 1.3 mg/dL) 3.7 H Glomerular Filtr Rate (70 - 80) 16.1 L Glucose (70 - 110 mg/dL) 92 Calcium (8.0 - 10.5 mg/dL) 8.7 Phosphorus (2.5 - 4.9 MG/DL) 5.2 H Magnesium (1.80 - 2.40 mg/dL) 1.89 Laboratory Tests 05/16 914 Hematology WBC (4.5 - 11.0 x10 3/uL) 8.8 RBC (4.00 - 5.60 x10 6/uL) 2.86 L Hgb (12.5 - 16.9 g/dL) 8.5 L Hct (37.5 - 50.7 %) 27.4 L MCV (81.0 - 99.0 fL) 95.8 MCH (27.0 - 33.0 pg) 29.7 MCHC (33.0 - 37.0 g/dL) 31.0 L RDW (11.5 - 14.5 %) 14.9 H Plt Count (150 - 400 x10 3/uL) 264 MPV (7.0 - 9.0 fL) 8.8 Neut % (Auto) (56.0 - 77.0 %) 64.9 Lymph % (Auto) (14.0 - 32.0 %) 11.5 L Dolores % (Auto) (4.8 - 9.0 %) 9.5 H Eos % (Auto) (0.3 - 3.7 %) 13.3 H Baso % (Auto) (0.0 - 2.0 %) 0.5 Neut # (Auto) (2.0 - 7.6 x10 3/uL) 5.71 Lymph # (Auto) (1.0 - 3.8 x10 3/uL) 1.01 Dolores # (Auto) (0.1 - 0.8 x10 3/uL) 0.84 H Eos # (Auto) (0.0 - 0.2 x10 3/uL) 1.17 H Baso # (Auto) (0.0 - 0.2 x10 3/uL) 0.04 Abs Immat Gran (auto) (0.00 - 0.03 x10 3/uL) 0. 03 Add Manual Diff NO Immature Gran % (0.0 - 2.0 %) 0.3 Nucleated RBC % (0 - 0 %) 0.0 Nucleated RBCs # (Man) (0.0 - 0.1 x10 3/uL) 0.0 0 Diagnosis, Assessment Plan Free Text A P: 1. ESRD 2. Hyperkalemia 3. Hypertension 4. Status post fall and acute SDH 5. Anemia of chronic kidney disease 6. Coronary artery disease Plan -HD MWF. Seen on treatment. Tolerating with UF g oal of 2L. -Blood pressure currently stable and home medica tions restarted with holding parameters -Renal diet -Hemoglobin better. On Epogen 3 times weekly -Phos has been stable. -Neurosurgery follow-up. Blood thinners on hold. We will continue to follow. This plan of care was discussed with Dr Dana barnhart. Anders Quick 05/16/20 0977: Attestations Physician Attestation Agree w/findings plan: I have reviewed the history physical and plan wi ORVILLE Soler and have reviewed the note with her. Patient is s een on hemodialysis. I concur with the note written by Jenny and agree with the jj n of care. at 1451 at 6615 RPT #:[id number] END OF REPORT 2020-05-16 13:14:00-00:00 [facility] ([facility]) Trauma Progress Note REPORT#:[id number] REPORT STATUS: Signed DATE:05/16/20 TIME: 1314 PATIENT: DARIEN GROSSMAN UNIT #: [id number] ROOM/BED: [place] [id number] : 45 AGE: 74 SEX: M ATTEND: Liliam Espino MD ADM AUTHOR: Derick Clark * ALL edits or amendments must be made on the C-Note/computer document * Subjective Chief Complaint: generalized weakness HPI: no acute events overnight, p t in wheelchair with no complaints. Would like to go to rehab Review of Systems Neuro: Denies: change in LOC, confu willy, dizziness, headache, vision change, weakness. Free Text ROS Notes Free Text ROS Notes: Review of systems: As above; otherwise, negativ e to include neurologic, eyes, ENT, CV, respiratory, GI, musculoskeletal, , skin, psychiatric, seven tologic, and allergy. Objective Physical Exam VS/I O: Vital Signs: Date Time Temp Pulse Resp B/P B/P Pulse O2 O2 F low FiO2 Mean Ox Delivery Rate 05/16 0805 98.2 59 16 154/67 96.3 94 Room air 05/16 0318 98.1 64 17 129/65 85.9 93 Room air 05/15 2116 98.2 72 20 145/67 93.0 98 05/15 1927 98.1 66 17 163/72 102.6 96 Room air 05/15 1543 98.2 63 18 151/75 100.2 96 Room air 05/15 1316 98.4 53 16 132/72 92.1 97 Room air 24 hour I O ending at 0700: 05/16 0700 05/15 1900 Intake Total 200 1500 Output Total Balance 200 1500 Intake, Oral 200 1500 Number Voids 1 Patient 82.554 kg Weight PATIENT WEIGHT: Weight (lb): 182 Weight (oz): 0 Weight (kg): 82.554 Medications: Active Meds + DC'd Last 24 Hrs Clopidogrel Bisulfate 75 MG DAILY PO Epoetin Donny-epbx 4,000 UNIT TuThSa@2100 SUBQ Hydrocodone Bitart/Acetaminophen 1 TAB Q4H PRN P RN PO Venlafaxine HCl 75 MG DAILY PO Furosemide 40 MG DAILY PO Albumin Human 12.5 GM ASDIR PRN IV Heparin Sodium (Porcine) 3,000 UNIT ASDIR PRN DI ALYSIS Lidocaine HCl 0.5 ML ASDIR PRN I-DERMAL (CKD) Mannitol 12.5 GM ASDIR PRN IV Sodium Chloride 2,000 ML ASDIR PRN IV Sodium Chloride 5 ML ASDIR PRN IV Sodium Chloride 10 ML ASDIR PRN IV Sodium Chloride 250 ML ASDIR PRN IV Buspirone HCl 10 MG BEDTIME PO Gabapentin 300 MG BEDTIME PO Metoprolol Tartrate 25 MG BID PO Mupirocin 1 APPLIC BID NASAL Trazodone HCl 150 MG BEDTIME PO Zolpidem Tartrate 5 MG BEDTIME PRN PRN PO Levetiracetam 500 MG Q12HR PO Polyethylene Glycol 17 GM DAILY PO Acetaminophen 650 MG Q6H PRN PRN PO Hydralazine HCl 10 MG Q6H PRN PRN IV Morphine Sulfate 4 MG Q4H PRN PRN IV Ondansetron HCl 4 MG Q4H PRN PRN IV Head/Eyes: PERRL, EOMI, small hematoma p alpable at posterior occiput, abrasion to right temporal area noted as well ENT: atraumatic Neck: full range of motion, non-tender, trachea midline, no JVD C-Spine clearance: no midli ne tenderness, NI flexion w/o pain, NI extension w/ o pain Cardiovascular: BP/pulses equal bilat (radial pu lses present), regular rate rhythm Respiratory/Chest: aerating well, no distress Abdomen: no chest wall deformity or tenderness Back/spine: Back: non-tender, no midline vertebral tend Pelvis: atraumatic, pelvis stable, no pelvic ten derness Extremities: no tenderness or deformity right AK A noted R AKA Neuro/CUSTODIAN MANAGER: alert, oriented X 3, no motor deficit s Skin: dry, normal temperature Results Findings/Data: Laboratory Tests 05/16 914 Chemistry Sodium (134 - 147 mEq/L) 138 Potassium (3.4 - 5.0 mEq/L) 4.4 Chloride (100 - 108 mEq/L) 104 Carbon Dioxide (21 - 33 mEq/l) 31 Anion Gap (0 - 20) 8 BUN (7 - 18 mg/dL) 37 H Creatinine (0.6 - 1.3 mg/dL) 3.7 H Glomerular Filtr Rate (70 - 80) 16.1 L Glucose (70 - 110 mg/dL) 92 Calcium (8.0 - 10.5 mg/dL) 8.7 Phosphorus (2.5 - 4.9 MG/DL) 5.2 H Magnesium (1.80 - 2.40 mg/dL) 1.89 Laboratory Tests 05/16 0915 Hematology WBC (4.5 - 11.0 x10 3/uL) 8.8 RBC (4.00 - 5.60 x10 6/uL) 2.86 L Hgb (12.5 - 16.9 g/dL) 8.5 L Hct (37.5 - 50.7 %) 27.4 L MCV (81.0 - 99.0 fL) 95.8 MCH (27.0 - 33.0 pg) 29.7 MCHC (33.0 - 37.0 g/dL) 31.0 L RDW (11.5 - 14.5 %) 14.9 H Plt Count (150 - 400 x10 3/uL) 264 MPV (7.0 - 9.0 fL) 8.8 Neut % (Auto) (56.0 - 77.0 %) 64.9 Lymph % (Auto) (14.0 - 32.0 %) 11.5 L Dolores % (Auto) (4.8 - 9.0 %) 9.5 H Eos % (Auto) (0.3 - 3.7 %) 13.3 H Baso % (Auto) (0.0 - 2.0 %) 0.5 Neut # (Auto) (2.0 - 7.6 x10 3/uL) 5.71 Lymph # (Auto) (1.0 - 3.8 x10 3/uL) 1.01 Dolores # (Auto) (0.1 - 0.8 x10 3/uL) 0.84 H Eos # (Auto) (0.0 - 0.2 x10 3/uL) 1.17 H Baso # (Auto) (0.0 - 0.2 x10 3/uL) 0.04 Abs Immat Gran (auto) (0.00 - 0.03 x10 3/uL) 0 .03 Add Manual Diff NO Immature Gran % (0.0 - 2.0 %) 0.3 Nucleated RBC % (0 - 0 %) 0.0 Nucleated RBCs # (Man) (0.0 - 0.1 x10 3/uL) 0.0 0 Results: vital signs stable, current med profile rev'd Free Text Obj Notes Free Text Obj Notes: Labs and images also reviewed personally. Diagnosis, Assessment Plan Free Text A P: Mechanism: Fall Injuries: SDH Active Problems: ESRD on HD Resolved Problems: n/a Incidental findings: n/a Chronic Medical Problems: CAD, ESRD on HD, dysli pidemia DVT prophylaxis: SCDs, hold lovenox for ICH GI prophylaxis: diet Lines/Be/ETT (placement dates: PIV Consultants: Neurosurg (Denny), Nephrology Procedures: n/a Plan: Pt was seen and evaluated c Dr Hoffmann, who deter mined the POC As a result of this trauma consultation, pt was admitted [facility] Subdural hematoma * Stable acute left parafalc ine subdural hematona extending into the L tentorium with minimum left to right midline shift also st able on repeat head CT 05/13 * Neurosurg consulted and ad vised to hold plavix for 72 hours (05/16) and hold ASA until same date -resumed plavix and ASA today after no neuro changes noted per neurosurg recs * Maintain SBP <140 * Keppra x 7 days * Medically cleared for transfer to rehab facili ty * PT/OT ESRD on HD * chronic renal failure * nephrology consulted, HD continues Diet: Renal diet Labs: AM PT/OT recs: pending DME: recs pending Code status: Full code Medical Decision Making: In the event the patient is incapacitated and not able to make their own medical decisions, the y have elected Marin Mixon, contact number [phone], to make medical decisions f or them. Dispo: Case mgmt consulted, planned inpatient re hab Quality: Trauma Gen Surg Advanced Care Plan 65 or Older Discussed with: patient, Patient noting tonight that he wants to be DNR. We discussed what that means an d he is aware- he made that decision for his mother as well Discussion included: code status, surrog ate decision maker per him is a family friend named Marin Anderson VTE Prophylaxis - General VTE prophylaxis initiated: no pharmacologic, farshad son: (bleeding risk) Electronically Signed by Derick Clark on 07/01 at 1316 RPT #:[id number] END OF REPORT 2020-05-16 13:14:00-00:00 [facility] ([facility]) Trauma Progress Note REPORT#:[id number] REPORT STATUS: Signed DATE:05/16/20 TIME: 1314 PATIENT: DARIEN GROSSMAN UNIT #: [id number] ROOM/BED: [place] [id number] : 45 AGE: 74 SEX: M ATTEND: Liliam Espino MD ADM AUTHOR: Derick Clark * ALL edits or amendments must be made on the C-Note/computer document * Derick Clark 05/16/20 1314: Subjective Chief Complaint: generalized weakness HPI: no acute events overnight, p t in wheelchair with no complaints. Would like to go to rehab Review of Systems Neuro: Denies: change in LOC, confu willy, dizziness, headache, vision change, weakness. Free Text ROS Notes Free Text ROS Notes: Review of systems: As above; otherwise, negativ e to include neurologic, eyes, ENT, CV, respiratory, GI, musculoskeletal, , skin, psychiatric, seven tologic, and allergy. Objective Physical Exam VS/I O: Vital Signs: Date Time Temp Pulse Resp B/P B/P Pulse O2 O2 F low FiO2 Mean Ox Delivery Rate 05/16 0805 98.2 59 16 154/67 96.3 94 Room air 05/16 0318 98.1 64 17 129/65 85.9 93 Room air 05/15 2116 98.2 72 20 145/67 93.0 98 05/15 1927 98.1 66 17 163/72 102.6 96 Room air 05/15 1543 98.2 63 18 151/75 100.2 96 Room air 05/15 1316 98.4 53 16 132/72 92.1 97 Room air 24 hour I O ending at 0700: 04/05 0700 04/04 1900 Intake Total 200 1500 Output Total Balance 200 1500 Intake, Oral 200 1500 Number Voids 1 Patient 82.554 kg Weight PATIENT WEIGHT: Weight (lb): 182 Weight (oz): 0 Weight (kg): 82.554 Medications: Active Meds + DC'd Last 24 Hrs Clopidogrel Bisulfate 75 MG DAILY PO Epoetin Donny-epbx 4,000 UNIT TuThSa@2100 SUBQ Hydrocodone Bitart/Acetaminophen 1 TAB Q4H PRN P RN PO Venlafaxine HCl 75 MG DAILY PO Furosemide 40 MG DAILY PO Albumin Human 12.5 GM ASDIR PRN IV Heparin Sodium (Porcine) 3,000 UNIT ASDIR PRN DI ALYSIS Lidocaine HCl 0.5 ML ASDIR PRN I-DERMAL (CKD) Mannitol 12.5 GM ASDIR PRN IV Sodium Chloride 2,000 ML ASDIR PRN IV Sodium Chloride 5 ML ASDIR PRN IV Sodium Chloride 10 ML ASDIR PRN IV Sodium Chloride 250 ML ASDIR PRN IV Buspirone HCl 10 MG BEDTIME PO Gabapentin 300 MG BEDTIME PO Metoprolol Tartrate 25 MG BID PO Mupirocin 1 APPLIC BID NASAL Trazodone HCl 150 MG BEDTIME PO Zolpidem Tartrate 5 MG BEDTIME PRN PRN PO Levetiracetam 500 MG Q12HR PO Polyethylene Glycol 17 GM DAILY PO Acetaminophen 650 MG Q6H PRN PRN PO Hydralazine HCl 10 MG Q6H PRN PRN IV Morphine Sulfate 4 MG Q4H PRN PRN IV Ondansetron HCl 4 MG Q4H PRN PRN IV Head/Eyes: PERRL, EOMI, small hematoma p alpable at posterior occiput, abrasion to right temporal area noted as well ENT: atraumatic Neck: full range of motion, non-tender, trachea midline, no JVD C-Spine clearance: no midli ne tenderness, NI flexion w/o pain, NI extension w/ o pain Cardiovascular: BP/pulses equal bilat (radial pu lses present), regular rate rhythm Respiratory/Chest: aerating well, no distress Abdomen: no chest wall deformity or tenderness Back/spine: Back: non-tender, no midline vertebral tend Pelvis: atraumatic, pelvis stable, no pelvic ten derness Extremities: no tenderness or deformity right AK A noted R AKA Neuro/CUSTODIAN MANAGER: alert, oriented X 3, no motor deficit s Skin: dry, normal temperature Results Findings/Data: Laboratory Tests 05/16 914 Chemistry Sodium (134 - 147 mEq/L) 138 Potassium (3.4 - 5.0 mEq/L) 4.4 Chloride (100 - 108 mEq/L) 104 Carbon Dioxide (21 - 33 mEq/l) 31 Anion Gap (0 - 20) 8 BUN (7 - 18 mg/dL) 37 H Creatinine (0.6 - 1.3 mg/dL) 3.7 H Glomerular Filtr Rate (70 - 80) 16.1 L Glucose (70 - 110 mg/dL) 92 Calcium (8.0 - 10.5 mg/dL) 8.7 Phosphorus (2.5 - 4.9 MG/DL) 5.2 H Magnesium (1.80 - 2.40 mg/dL) 1.89 Laboratory Tests 05/16 914 Hematology WBC (4.5 - 11.0 x10 3/uL) 8.8 RBC (4.00 - 5.60 x10 6/uL) 2.86 L Hgb (12.5 - 16.9 g/dL) 8.5 L Hct (37.5 - 50.7 %) 27.4 L MCV (81.0 - 99.0 fL) 95.8 MCH (27.0 - 33.0 pg) 29.7 MCHC (33.0 - 37.0 g/dL) 31.0 L RDW (11.5 - 14.5 %) 14.9 H Plt Count (150 - 400 x10 3/uL) 264 MPV (7.0 - 9.0 fL) 8.8 Neut % (Auto) (56.0 - 77.0 %) 64.9 Lymph % (Auto) (14.0 - 32.0 %) 11.5 L Dolores % (Auto) (4.8 - 9.0 %) 9.5 H Eos % (Auto) (0.3 - 3.7 %) 13.3 H Baso % (Auto) (0.0 - 2.0 %) 0.5 Neut # (Auto) (2.0 - 7.6 x10 3/uL) 5.71 Lymph # (Auto) (1.0 - 3.8 x10 3/uL) 1.01 Dolores # (Auto) (0.1 - 0.8 x10 3/uL) 0.84 H Eos # (Auto) (0.0 - 0.2 x10 3/uL) 1.17 H Baso # (Auto) (0.0 - 0.2 x10 3/uL) 0.04 Abs Immat Gran (auto) (0.00 - 0.03 x10 3/uL) 0. 03 Add Manual Diff NO Immature Gran % (0.0 - 2.0 %) 0.3 Nucleated RBC % (0 - 0 %) 0.0 Nucleated RBCs # (Man) (0.0 - 0.1 x10 3/uL) 0.0 0 Results: vital signs stable, current med profile rev'd Free Text Obj Notes Free Text Obj Notes: Labs and images also reviewed personally. Diagnosis, Assessment Plan Free Text A P: Mechanism: Fall Injuries: SDH Active Problems: ESRD on HD Resolved Problems: n/a Incidental findings: n/a Chronic Medical Problems: CAD, ESRD on HD, dysli pidemia DVT prophylaxis: SCDs, hold lovenox for ICH GI prophylaxis: diet Lines/Be/ETT (placement dates: PIV Consultants: Neurosurg (Denny), Nephrology Procedures: n/a Plan: Pt was seen and evaluated c Dr Hoffmann, who deter mined the POC As a result of this trauma consultation, pt was admitted [facility] Subdural hematoma * Stable acute left parafalc ine subdural hematona extending into the L tentorium with minimum left to right midline shift also st able on repeat head CT 05/13 * Neurosurg consulted and ad vised to hold plavix for 72 hours (05/16) and hold ASA until same date -resumed plavix and ASA today after no neuro changes noted per neurosurg recs * Maintain SBP <140 * Keppra x 7 days * Medically cleared for transfer to rehab facili ty * PT/OT ESRD on HD * chronic renal failure * nephrology consulted, HD continues Diet: Renal diet Labs: AM PT/OT recs: pending DME: recs pending Code status: Full code Medical Decision Making: In the event the patient is incapacitated and not able to make their own medical decisions, the y have elected Marin Mixon, contact number [phone], to make medical decisions f or them. Dispo: Case mgmt consulted, planned inpatient re hab Quality: Trauma Gen Surg Advanced Care Plan 65 or Older Discussed with: patient, Patient noting tonight that he wants to be DNR. We discussed what that means an d he is aware- he made that decision for his mother as well Discussion included: code status, surrog ate decision maker per him is a family friend named Marin Anderson VTE Prophylaxis - General VTE prophylaxis initiated: no pharmacologic, farshad son: (bleeding risk) Julian Balbuena 05/16/20 1429: Attestations Physician Attestation Agree w/findings plan: I interviewed and examined the patient w ith the ARMAND. ! agree with the findings and plan as documented by Derick Clark PA-C. Julian Balbuena MD Attending Surgeon Trauma Surgery Reviewed findings plan: Reviewed the findings and plan as documented by [insert ARMAND name]; * my personal evaluation is [ ] Electronically Signed by Derick Clark on 07/01 at 1316 RPT #:[id number] END OF REPORT 2020-05-16 13:14:00-00:00 [facility] ([facility]) Trauma Progress Note REPORT#:[id number] REPORT STATUS: Signed DATE:05/16/20 TIME: 131 PATIENT: DARIEN GROSSMAN UNIT #: [id number] ROOM/BED: [place] [id number] : 45 AGE: 74 SEX: M ATTEND: Liliam Espino MD ADM AUTHOR: Derick Clark * ALL edits or amendments must be made on the C-Note/computer document * Derick Clark 05/16/20 1314: Subjective Chief Complaint: generalized weakness HPI: no acute events overnight, p t in wheelchair with no complaints. Would like to go to rehab Review of Systems Neuro: Denies: change in LOC, confu willy, dizziness, headache, vision change, weakness. Free Text ROS Notes Free Text ROS Notes: Review of systems: As above; otherwise, negativ e to include neurologic, eyes, ENT, CV, respiratory, GI, musculoskeletal, , skin, psychiatric, seven tologic, and allergy. Objective Physical Exam VS/I O: Vital Signs: Date Time Temp Pulse Resp B/P B/P Pulse O2 O2 Flow FiO2 Mean Ox Delivery Rate 05/16 0805 98.2 59 16 154/67 96.3 94 Room air 05/16 0318 98.1 64 17 129/65 85.9 93 Room air 05/15 2116 98.2 72 20 145/67 93.0 98 05/15 1927 98.1 66 17 163/72 102.6 96 Room air 05/15 1543 98.2 63 18 151/75 100.2 96 Room air 05/15 1316 98.4 53 16 132/72 92.1 97 Room air 24 hour I O ending at 0700: 05/16 0700 05/15 1900 Intake Total 200 1500 Output Total Balance 200 1500 Intake, Oral 200 1500 Number Voids 1 Patient 82.554 kg Weight PATIENT WEIGHT: Weight (lb): 182 Weight (oz): 0 Weight (kg): 82.554 Medications: Active Meds + DC'd Last 24 Hrs Clopidogrel Bisulfate 75 MG DAILY PO Epoetin Donny-epbx 4,000 UNIT TuThSa@2100 SUBQ Hydrocodone Bitart/Acetaminophen 1 TAB Q4H PRN P RN PO Venlafaxine HCl 75 MG DAILY PO Furosemide 40 MG DAILY PO Albumin Human 12.5 GM ASDIR PRN IV Heparin Sodium (Porcine) 3,000 UNIT ASDIR PRN DI ALYSIS Lidocaine HCl 0.5 ML ASDIR PRN I-DERMAL (CKD) Mannitol 12.5 GM ASDIR PRN IV Sodium Chloride 2,000 ML ASDIR PRN IV Sodium Chloride 5 ML ASDIR PRN IV Sodium Chloride 10 ML ASDIR PRN IV Sodium Chloride 250 ML ASDIR PRN IV Buspirone HCl 10 MG BEDTIME PO Gabapentin 300 MG BEDTIME PO Metoprolol Tartrate 25 MG BID PO Mupirocin 1 APPLIC BID NASAL Trazodone HCl 150 MG BEDTIME PO Zolpidem Tartrate 5 MG BEDTIME PRN PRN PO Levetiracetam 500 MG Q12HR PO Polyethylene Glycol 17 GM DAILY PO Acetaminophen 650 MG Q6H PRN PRN PO Hydralazine HCl 10 MG Q6H PRN PRN IV Morphine Sulfate 4 MG Q4H PRN PRN IV Ondansetron HCl 4 MG Q4H PRN PRN IV Head/Eyes: PERRL, EOMI, small hematoma p alpable at posterior occiput, abrasion to right temporal area noted as well ENT: atraumatic Neck: full range of motion, non-tender, trachea midline, no JVD C-Spine clearance: no midli ne tenderness, NI flexion w/o pain, NI extension w/ o pain Cardiovascular: BP/pulses equal bilat (radial pu lses present), regular rate rhythm Respiratory/Chest: aerating well, no distress Abdomen: no chest wall deformity or tenderness Back/spine: Back: non-tender, no midline vertebral tend Pelvis: atraumatic, pelvis stable, no pelvic ten derness Extremities: no tenderness or deformity right AK A noted R AKA Neuro/CUSTODIAN MANAGER: alert, oriented X 3, no motor deficit s Skin: dry, normal temperature Results Findings/Data: Laboratory Tests 05/16 914 Chemistry Sodium (134 - 147 mEq/L) 138 Potassium (3.4 - 5.0 mEq/L) 4.4 Chloride (100 - 108 mEq/L) 104 Carbon Dioxide (21 - 33 mEq/l) 31 Anion Gap (0 - 20) 8 BUN (7 - 18 mg/dL) 37 H Creatinine (0.6 - 1.3 mg/dL) 3.7 H Glomerular Filtr Rate (70 - 80) 16.1 L Glucose (70 - 110 mg/dL) 92 Calcium (8.0 - 10.5 mg/dL) 8.7 Phosphorus (2.5 - 4.9 MG/DL) 5.2 H Magnesium (1.80 - 2.40 mg/dL) 1.89 Laboratory Tests 05/16 914 Hematology WBC (4.5 - 11.0 x10 3/uL) 8.8 RBC (4.00 - 5.60 x10 6/uL) 2.86 L Hgb (12.5 - 16.9 g/dL) 8.5 L Hct (37.5 - 50.7 %) 27.4 L MCV (81.0 - 99.0 fL) 95.8 MCH (27.0 - 33.0 pg) 29.7 MCHC (33.0 - 37.0 g/dL) 31.0 L RDW (11.5 - 14.5 %) 14.9 H Plt Count (150 - 400 x10 3/uL) 264 MPV (7.0 - 9.0 fL) 8.8 Neut % (Auto) (56.0 - 77.0 %) 64.9 Lymph % (Auto) (14.0 - 32.0 %) 11.5 L Dolores % (Auto) (4.8 - 9.0 %) 9.5 H Eos % (Auto) (0.3 - 3.7 %) 13.3 H Baso % (Auto) (0.0 - 2.0 %) 0.5 Neut # (Auto) (2.0 - 7.6 x10 3/uL) 5.71 Lymph # (Auto) (1.0 - 3.8 x10 3/uL) 1.01 Dolores # (Auto) (0.1 - 0.8 x10 3/uL) 0.84 H Eos # (Auto) (0.0 - 0.2 x10 3/uL) 1.17 H Baso # (Auto) (0.0 - 0.2 x10 3/uL) 0.04 Abs Immat Gran (auto) (0.00 - 0.03 x10 3/uL) 0. 03 Add Manual Diff NO Immature Gran % (0.0 - 2.0 %) 0.3 Nucleated RBC % (0 - 0 %) 0.0 Nucleated RBCs # (Man) (0.0 - 0.1 x10 3/uL) 0. 00 Results: vital signs stable, current med profile rev'd Free Text Obj Notes Free Text Obj Notes: Labs and images also reviewed personally. Diagnosis, Assessment Plan Free Text A P: Mechanism: Fall Injuries: SDH Active Problems: ESRD on HD Resolved Problems: n/a Incidental findings: n/a Chronic Medical Problems: CAD, ESRD on HD, dysli pidemia DVT prophylaxis: SCDs, hold lovenox for ICH GI prophylaxis: diet Lines/Be/ETT (placement dates: PIV Consultants: Neurosurg (Denny), Nephrology Procedures: n/a Plan: Pt was seen and evaluated c Dr Hoffmann, who deter mined the POC As a result of this trauma consultation, pt was admitted to [facility] Subdural hematoma * Stable acute left parafalc ine subdural hematona extending into the L tentorium with minimum left to right midline shift also st able on repeat head CT 05/13 * Neurosurg consulted and ad vised to hold plavix for 72 hours (05/16) and hold ASA until same date -resumed plavix and ASA today after no neuro changes noted per neurosurg recs * Maintain SBP <140 * Keppra x 7 days * Medically cleared for transfer to rehab facili ty * PT/OT ESRD on HD * chronic renal failure * nephrology consulted, HD continues Diet: Renal diet Labs: AM PT/OT recs: pending DME: recs pending Code status: Full code Medical Decision Making: In the event the patient is incapacitated and not able to make their own medical decisions, the y have elected Marin Mixon, contact number [phone], to make medical decisions f or them. Dispo: Case mgmt consulted, planned inpatient re hab Quality: Trauma Gen Surg Advanced Care Plan 65 or Older Discussed with: patient, Patient noting tonight that he wants to be DNR. We discussed what that means an d he is aware- he made that decision for his mother as well Discussion included: code status, surrog ate decision maker per him is a family friend named Marin Anderson VTE Prophylaxis - General VTE prophylaxis initiated: no pharmacologic, farshad son: (bleeding risk) Julian Balbuena 05/16/20 1429: Attestations Physician Attestation Agree w/findings plan: I interviewed and examined the patient w ith the ARMAND. ! agree with the findings and plan as documented by Derick Clark PA-C. Julian Balbuena MD Attending Surgeon Trauma Surgery Reviewed findings plan: Reviewed the findings and plan as documented by [insert ARMAND name]; * my personal evaluation is [ ] Electronically Signed by Derick Clark on 07/01 at 1316 Electronically Signed by Julian Balbuena MD on at 1430 RPT #:[id number] END OF REPORT 2020-05-16 10:39:00-00:00 [facility] Rehab Progress Note REPORT#:[id number] REPORT STATUS: Signed DATE:05/16/20 TIME: 1039 PATIENT: DARIEN GROSSMAN UNIT #: [id number] ROOM/BED: [place] [id number] : 45 AGE: 74 SEX: M ATTEND: Liliam Espino MD ADM AUTHOR: Sekou Curtis MD * ALL edits or amendments must be made on the C-Note/computer document * Subjective Chief complaint: Rehab follow-up Doing well today Going for hemodialysis Walked over 32 feet No recent BM Denies PATEL/N/V/D 14 systems reviewed and neg. except that above. Patient reports: No: shortness of breath, vomiting, constipation. Nursing reports: No: new events overnight. Objective General VS: Vital Signs: Date Time Temp Pulse Resp B/P B/P Pulse O2 O2 F low FiO2 Mean Ox Delivery Rate 05/16 0805 98.2 59 16 154/67 96.3 94 Room air 05/16 0318 98.1 64 17 129/65 85.9 93 Room air 05/15 2116 98.2 72 20 145/67 93.0 98 / 1927 98.1 66 17 163/72 102.6 96 Room air 05/15 1543 98.2 63 18 151/75 100.2 96 Room air 05/15 1316 98.4 53 16 132/72 92.1 97 Room air PATIENT WEIGHT: Weight (lb): 182 Weight (oz): 0 Weight (kg): 82.554 Medications: Active Meds + DC'd Last 24 Hrs Clopidogrel Bisulfate 75 MG DAILY PO Epoetin Donny-epbx 4,000 UNIT TuThSa@2100 SUBQ Hydrocodone Bitart/Acetaminophen 1 TAB Q4H PRN P RN PO Venlafaxine HCl 75 MG DAILY PO Furosemide 40 MG DAILY PO Albumin Human 12.5 GM ASDIR PRN IV Heparin Sodium (Porcine) 3,000 UNIT ASDIR PRN DI ALYSIS Lidocaine HCl 0.5 ML ASDIR PRN I-DERMAL (CKD) Mannitol 12.5 GM ASDIR PRN IV Sodium Chloride 2,000 ML ASDIR PRN IV Sodium Chloride 5 ML ASDIR PRN IV Sodium Chloride 10 ML ASDIR PRN IV Sodium Chloride 250 ML ASDIR PRN IV Buspirone HCl 10 MG BEDTIME PO Gabapentin 300 MG BEDTIME PO Metoprolol Tartrate 25 MG BID PO Mupirocin 1 APPLIC BID NASAL Trazodone HCl 150 MG BEDTIME PO Zolpidem Tartrate 5 MG BEDTIME PRN PRN PO Levetiracetam 500 MG Q12HR PO Polyethylene Glycol 17 GM DAILY PO Acetaminophen 650 MG Q6H PRN PRN PO Hydralazine HCl 10 MG Q6H PRN PRN IV Morphine Sulfate 4 MG Q4H PRN PRN IV Ondansetron HCl 4 MG Q4H PRN PRN IV Nutrition assessment: BMI-26.9 Functional Progress Functional progress: PT COMMENT 1. One on one supervision with cueing and felicita tance provided to ensure proper performance of all activities. Yes Precautions: Fall Pre- Gait Mobility Y/N: Yes Safety addressed through use of: Gait Belt Verbal Cues Tactile Cues Gait Device ROLLING WALKER Weightbearing: No Restriction Ambulation Distance: 32' Progression: Forward Backward Lateral, Right Lateral, Left Assistance Level: Supervision or Set-up Advanced Progression: No Post TX Precautions: In Chair Call Light in Reach Physical Exam General appearance: alert, awake, oriented Psych: alert, normal affect, oriented x 3 HEENT: anicteric, mucosal membranes moist, pupil s reactive to light, sclera clear Neck: non-tender, supple, no JVD C-Spine clearance: no midli ne tenderness, NI flexion w/o pain, NI extension w/ o pain Cardiovascular: regular rate rhythm, S1/S2, no m urmur Respiratory: aerating well, clear bilaterally, c lear to auscultation Abdomen: bowel sounds presen t, non-distended, soft, non-tender, no mass palpable Skin: dry, normal temperature, RESIDUAL LIMB W D RESSING Musculoskeletal - general: Musculoskeletal - general: range of motion norm al, Moves alll 4 exts against gravity, MMT BUE 4/5, R HF 3/5, LLE 3+/5. L calv e NT, NO cords. Neuro/CUSTODIAN MANAGER: alert, oriented X 3, CNII-XII intact, normal speech Results Findings/Data: Laboratory Tests: 05/16 0915 Chemistry Sodium (134 - 147 mEq/L) 138 Potassium (3.4 - 5.0 mEq/L) 4.4 Chloride (100 - 108 mEq/L) 104 Carbon Dioxide (21 - 33 mEq/l) 31 Anion Gap (0 - 20) 8 BUN (7 - 18 mg/dL) 37 H Creatinine (0.6 - 1.3 mg/dL) 3.7 H Glomerular Filtr Rate (70 - 80) 16.1 L Glucose (70 - 110 mg/dL) 92 Calcium (8.0 - 10.5 mg/dL) 8.7 Phosphorus (2.5 - 4.9 MG/DL) 5.2 H Magnesium (1.80 - 2.40 mg/dL) 1.89 Hematology WBC (4.5 - 11.0 x10 3/uL) 8.8 RBC (4.00 - 5.60 x10 6/uL) 2.86 L Hgb (12.5 - 16.9 g/dL) 8.5 L Hct (37.5 - 50.7 %) 27.4 L MCV (81.0 - 99.0 fL) 95.8 MCH (27.0 - 33.0 pg) 29.7 MCHC (33.0 - 37.0 g/dL) 31.0 L RDW (11.5 - 14.5 %) 14.9 H Plt Count (150 - 400 x10 3/uL) 264 MPV (7.0 - 9.0 fL) 8.8 Neut % (Auto) (56.0 - 77.0 %) 64.9 Lymph % (Auto) (14.0 - 32.0 %) 11.5 L Dolores % (Auto) (4.8 - 9.0 %) 9.5 H Eos % (Auto) (0.3 - 3.7 %) 13.3 H Baso % (Auto) (0.0 - 2.0 %) 0.5 Neut # (Auto) (2.0 - 7.6 x10 3/uL) 5.71 Lymph # (Auto) (1.0 - 3.8 x10 3/uL) 1.01 Dolores # (Auto) (0.1 - 0.8 x10 3/uL) 0.84 H Eos # (Auto) (0.0 - 0.2 x10 3/uL) 1.17 H Baso # (Auto) (0.0 - 0.2 x10 3/uL) 0.04 Abs Immat Gran (auto) (0.00 - 0.03 x10 3/uL) 0. 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 Stable acute left parafalcine subdural hematoma extending into the left tentorium. Minimal left to right midline sh ift is stable. SL: TPAINTER-H Impression By: [email or web address] - Anoop Mays M.D. 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 Impaired mobility and gait Generalized weakness Frequent falls since AKA ESRD on hemodialysis Hyperkalemia CAD Hypertension HLD Anemia of chronic disease Plan: PT and OT robin's reviewed Nephrolgoy following- ESRD/HD Stable acute left parafalcine subdural h ematona extending into the L tentorium with minimum left to right midline shift also st able on repeat head CT 05/13 Neurosurg consulted and advised to hold plavix for 72 hours (05/16) and hold ASA until same date No intervention for SDH Maintain SBP <140 Keppra x 7 days Mobilize pt OOB to chair Work on strength, transfers standing, WC mobilit y Fall precautions Tiered pain control Bowel program Continue right AKA incisional dressing care Monitor po intake and nutrition, albumin 3.2 No antiplatelets/anticoagula nts for now-SCD to LLE, okay to restart Plavix in 72 hours from 05/13 as per neurosurgery Patient back on Plavix and aspirin Hemoglobin state on Epogen Decub precautions Advance therapies as tolerated. We will follow-up after karl Case management states that the patient came [facility] and wishes to go back to [facility] rehab Continue to follow while the patient was hospitalized and provide rehabilitation services Progress-Gait Device ROLLING WALKER Weightbearing: No Restriction Ambulation Distance: 32' Progression: Forward Backward Lateral, Right Lateral, Left Assistance Level: Supervision or Set-up Total time 35 minutes greate r than 50% of the time spent discussing with patient about progress, IRF admission, rehab plan of car e, goals, therapies, labs, medications. EMR and MAR reviewed. All questions answered. Plan discussed with: patient, nurse Rehab attestation: . at 1428 RPT #:[id number] END OF REPORT 2020-05-15 14:06:00-00:00 [facility] ([facility]) Trauma Progress Note REPORT#:[id number] REPORT STATUS: Signed DATE:05/15/20 TIME: 1406 PATIENT: DARIEN GROSSMAN UNIT #: [id number] ROOM/BED: [place] [id number] : [birth year] AGE: 74 SEX: M ATTEND: Liliam Espino MD ADM AUTHOR: Derick Clark * ALL edits or amendments must be made on the C-Note/computer document * Subjective Chief Complaint: generalized weakness HPI: No acute events overnight, pt concerned about re hab placement, no complaints this am Review of Systems Neuro: Denies: change in LOC, confusion, dizzin ess, headache, syncope, vision change, weakness. Free Text ROS Notes Free Text ROS Notes: Review of systems: As above; otherwise, negativ e to include neurologic, eyes, ENT, CV, respiratory, GI, musculoskeletal, , skin, psychiatric, seven tologic, and allergy. Objective Physical Exam VS/I O: Vital Signs: Date Time Temp Pulse Resp B/P B/P Pulse O2 O2 F low FiO2 Mean Ox Delivery Rate 05/15 1316 98.4 53 16 132/72 92.1 97 Room air 05/15 0747 98.2 73 20 143/72 95.5 94 Room air 05/15 0401 97.9 58 17 127/68 87.5 95 Room air 05/14 2339 98.2 76 17 168/73 104.6 97 Room air 05/14 1956 98.4 70 17 159/68 98.3 96 Room air / 1630 99.3 63 16 160/68 98.7 97 Room air 24 hour I O ending at 0700: 05/15 0700 05/14 1900 Intake Total 750 Output Total 1999 Balance -1250 Intake, Oral 750 Number Voids 1 Output, 1999 Hemodialysis PATIENT WEIGHT: Weight (lb): 182 Weight (oz): 5.16 Weight (kg): 82.700 Medications: Active Meds + DC'd Last 24 Hrs Epoetin Donny-epbx 4,000 UNIT TuThSa@2100 SUBQ Hydrocodone Bitart/Acetaminophen 1 TAB Q4H PRN P RN PO Venlafaxine HCl 75 MG DAILY PO Furosemide 40 MG DAILY PO Albumin Human 12.5 GM ASDIR PRN IV Heparin Sodium (Porcine) 3,000 UNIT ASDIR PRN DI ALYSIS Lidocaine HCl 0.5 ML ASDIR PRN I-DERMAL (CKD) Mannitol 12.5 GM ASDIR PRN IV Sodium Chloride 2,000 ML ASDIR PRN IV Sodium Chloride 5 ML ASDIR PRN IV Sodium Chloride 10 ML ASDIR PRN IV Sodium Chloride 250 ML ASDIR PRN IV Buspirone HCl 10 MG BEDTIME PO Gabapentin 300 MG BEDTIME PO Metoprolol Tartrate 25 MG BID PO Mupirocin 1 APPLIC BID NASAL Trazodone HCl 150 MG BEDTIME PO Zolpidem Tartrate 5 MG BEDTIME PRN PRN PO Hydrocodone Bitart/Acetaminophen 1 TAB Q6H PRN P RN PO (DC) Levetiracetam 500 MG Q12HR PO Polyethylene Glycol 17 GM DAILY PO Acetaminophen 650 MG Q6H PRN PRN PO Hydralazine HCl 10 MG Q6H PRN PRN IV Morphine Sulfate 4 MG Q4H PRN PRN IV Ondansetron HCl 4 MG Q4H PRN PRN IV Head/Eyes: PERRL, EOMI, small hematoma p alpable at posterior occiput, abrasion to right temporal area noted as well ENT: atraumatic Neck: full range of motion, non-tender, trachea midline, no JVD C-Spine clearance: no midli ne tenderness, NI flexion w/o pain, NI extension w/ o pain Cardiovascular: BP/pulses equal bilat (radial pu lses present), regular rate rhythm Respiratory/Chest: aerating well, no distress Abdomen: no chest wall deformity or tenderness Pelvis: atraumatic, pelvis stable, no pelvic ten derness Extremities: no tenderness or deformity right AK A noted, R AKA Neuro/CUSTODIAN MANAGER: alert, oriented X 3, no motor deficit s Skin: dry, normal temperature Results Results: vital signs stable, current med profile rev'd Free Text Obj Notes Free Text Obj Notes: Labs and images also reviewed personally. Diagnosis, Assessment Plan Free Text A P: Mechanism: Fall Injuries: SDH Active Problems: ESRD on HD Resolved Problems: n/a Incidental findings: n/a Chronic Medical Problems: CAD, ESRD on HD, dysli pidemia DVT prophylaxis: SCDs, hold lovenox for ICH GI prophylaxis: diet Lines/Be/ETT (placement dates: PIV Consultants: Neurosurg (Denny), Nephrology Procedures: n/a Plan: Pt was seen and evaluated c Dr Hoffmann, who deter mined the POC As a result of this trauma consultation, pt was admitted to [facility] Subdural hematoma * Stable acute left parafalc ine subdural hematona extending into the L tentorium with minimum left to right midline shift also st able on repeat head CT 05/13 * Neurosurg consulted and ad vised to hold plavix for 72 hours (05/16) and hold ASA until same date * Maintain SBP <140 * Keppra x 7 days * Medically cleared for transfer to rehab facili ty * PT/OT ESRD on HD * chronic renal failure * nephrology consulted, HD continues Diet: Renal diet Labs: AM PT/OT recs: pending DME: recs pending Code status: Full code Medical Decision Making: In the event the patient is incapacitated and not able to make their own medical decisions, the y have elected Marin Mixon, contact number [phone], to make medical decisions f or them. Dispo: Case mgmt consulted, planned inpatient re hab Quality: Trauma Gen Surg Advanced Care Plan 65 or Older Discussed with: patient, Patient noting tonight that he wants to be DNR. We discussed what that means an d he is aware- he made that decision for his mother as well Discussion included: code status, surrog ate decision maker per him is a family friend named Marin Anderson VTE Prophylaxis - General VTE prophylaxis initiated: no pharmacologic, farshad son: (bleeding risk) Electronically Signed by Derick Clark on 06/01 at 1412 RPT #:[id number] END OF REPORT 2020-05-15 14:06:00-00:00 [facility] ([facility]) Trauma Progress Note REPORT#:[id number] REPORT STATUS: Signed DATE:05/15/20 TIME: 1406 PATIENT: DARIEN GROSSMAN UNIT #: [id number] ROOM/BED: [place] [id number] : 45 AGE: 74 SEX: M ATTEND: Liliam Espino MD ADM AUTHOR: Derick Clark * ALL edits or amendments must be made on the C-Note/computer document * Derick Clark 05/15/20 1406: Subjective Chief Complaint: generalized weakness HPI: No acute events overnight, pt concerned about re hab placement, no complaints this am Review of Systems Neuro: Denies: change in LOC, confusion, dizzin ess, headache, syncope, vision change, weakness. Free Text ROS Notes Free Text ROS Notes: Review of systems: As above; otherwise, negativ e to include neurologic, eyes, ENT, CV, respiratory, GI, musculoskeletal, , skin, psychiatric, seven tologic, and allergy. Objective Physical Exam VS/I O: Vital Signs: Date Time Temp Pulse Resp B/P B/P Pulse O2 O2 Flow FiO2 Mean Ox Delivery Rate 05/15 1316 98.4 53 16 132/72 92.1 97 Room air 05/15 0747 98.2 73 20 143/72 95.5 94 Room air 05/15 0401 97.9 58 17 127/68 87.5 95 Room air 05/14 2339 98.2 76 17 168/73 104.6 97 Room air 05/14 1957 98.4 70 17 159/68 98.3 96 Room air / 1630 99.3 63 16 160/68 98.7 97 Room air 24 hour I O ending at 0700: 05/15 0700 05/14 1900 Intake Total 750 Output Total 1999 Balance -1250 Intake, Oral 750 Number Voids 1 Output, 1999 Hemodialysis PATIENT WEIGHT: Weight (lb): 182 Weight (oz): 5.16 Weight (kg): 82.700 Medications: Active Meds + DC'd Last 24 Hrs Epoetin Donny-epbx 4,000 UNIT TuThSa@2100 SUBQ Hydrocodone Bitart/Acetaminophen 1 TAB Q4H PRN P RN PO Venlafaxine HCl 75 MG DAILY PO Furosemide 40 MG DAILY PO Albumin Human 12.5 GM ASDIR PRN IV Heparin Sodium (Porcine) 3,000 UNIT ASDIR PRN DI ALYSIS Lidocaine HCl 0.5 ML ASDIR PRN I-DERMAL (CKD) Mannitol 12.5 GM ASDIR PRN IV Sodium Chloride 2,000 ML ASDIR PRN IV Sodium Chloride 5 ML ASDIR PRN IV Sodium Chloride 10 ML ASDIR PRN IV Sodium Chloride 250 ML ASDIR PRN IV Buspirone HCl 10 MG BEDTIME PO Gabapentin 300 MG BEDTIME PO Metoprolol Tartrate 25 MG BID PO Mupirocin 1 APPLIC BID NASAL Trazodone HCl 150 MG BEDTIME PO Zolpidem Tartrate 5 MG BEDTIME PRN PRN PO Hydrocodone Bitart/Acetaminophen 1 TAB Q6H PRN P RN PO (DC) Levetiracetam 500 MG Q12HR PO Polyethylene Glycol 17 GM DAILY PO Acetaminophen 650 MG Q6H PRN PRN PO Hydralazine HCl 10 MG Q6H PRN PRN IV Morphine Sulfate 4 MG Q4H PRN PRN IV Ondansetron HCl 4 MG Q4H PRN PRN IV Head/Eyes: PERRL, EOMI, small hematoma p alpable at posterior occiput, abrasion to right temporal area noted as well ENT: atraumatic Neck: full range of motion, non-tender, trachea midline, no JVD C-Spine clearance: no midli ne tenderness, NI flexion w/o pain, NI extension w/ o pain Cardiovascular: BP/pulses equal bilat (radial pu lses present), regular rate rhythm Respiratory/Chest: aerating well, no distress Abdomen: no chest wall deformity or tenderness Pelvis: atraumatic, pelvis stable, no pelvic ten derness Extremities: no tenderness or deformity right AK A noted, R AKA Neuro/CUSTODIAN MANAGER: alert, oriented X 3, no motor deficit s Skin: dry, normal temperature Results Results: vital signs stable, current med profile rev'd Free Text Obj Notes Free Text Obj Notes: Labs and images also reviewed personally. Diagnosis, Assessment Plan Free Text A P: Mechanism: Fall Injuries: SDH Active Problems: ESRD on HD Resolved Problems: n/a Incidental findings: n/a Chronic Medical Problems: CAD, ESRD on HD, dysli pidemia DVT prophylaxis: SCDs, hold lovenox for ICH GI prophylaxis: diet Lines/Be/ETT (placement dates: PIV Consultants: Neurosurg ([facility]), Nephrology Procedures: n/a Plan: Pt was seen and evaluated c Dr Hoffmann, who deter mined the POC As a result of this trauma consultation, pt was admitted to [facility] Subdural hematoma * Stable acute left parafalc ine subdural hematona extending into the L tentorium with minimum left to right midline shift also st able on repeat head CT 05/13 * Neurosurg consulted and ad vised to hold plavix for 72 hours (05/16) and hold ASA until same date * Maintain SBP <140 * Keppra x 7 days * Medically cleared for transfer to rehab facili ty * PT/OT ESRD on HD * chronic renal failure * nephrology consulted, HD continues Diet: Renal diet Labs: AM PT/OT recs: pending DME: recs pending Code status: Full code Medical Decision Making: In the event the patient is incapacitated and not able to make their own medical decisions, the y have elected Marin Mixon, contact number [phone], to make medical decisions f or them. Dispo: Case mgmt consulted, planned inpatient re hab Quality: Trauma Gen Surg Advanced Care Plan 65 or Older Discussed with: patient, Patient noting tonight that he wants to be DNR. We discussed what that means an d he is aware- he made that decision for his mother as well Discussion included: code status, surrog ate decision maker per him is a family friend named Marin Anderson VTE Prophylaxis - General VTE prophylaxis initiated: no pharmacologic, farshad son: (bleeding risk) ShunBradenTri 05/15/20 1538: Attestations Physician Attestation Agree w/findings plan: I was present with the PA during the history and examination. I discussed the case with the PA and agree with the findings and plan as documented in the therapy A's note. Patient is concerned with his interactions with nursing yesterday regarding a environmental services technician and his desire to go either to [facility], where he came from or to rehab here at [facility] he would like to hear more about the facilities here On my exam nad, gcs15, lungs-unlabored on room a ir, cv-regular, R AKA with dressing in place, moving all extremities Plan: PMR consulted for evaluation and facilitation of rehab placement, appreciate assistance May resume Plavix today, 05/15/[address] Susan swenson, Neurosurgery CM for dispo Labs reviewed. Pertinent imaging personally deidra ambriz. Discussed plan with other members of the [facility] are team. Tri Hoffmann MD Trauma/Acute Care Surgery Electronically Signed by Derick Clark on 06/01 at 1412 RPT #:[id number] END OF REPORT 2020-05-15 14:06:00-00:00 [facility] ([facility]) Trauma Progress Note REPORT#:[id number] REPORT STATUS: Signed DATE:05/15/20 TIME: 140 PATIENT: DARIEN GROSSMAN UNIT #: [id number] ROOM/BED: [place] [id number] : 45 AGE: 74 SEX: M ATTEND: Liliam Espino MD ADM AUTHOR: Derick Clark * ALL edits or amendments must be made on the C-Note/computer document * Derick Clark. 05/15/20 1406: Subjective Chief Complaint: generalized weakness HPI: No acute events overnight, pt concerned about re hab placement, no complaints this am Review of Systems Neuro: Denies: change in LOC, confusion, dizzin ess, headache, syncope, vision change, weakness. Free Text ROS Notes Free Text ROS Notes: Review of systems: As above; otherwise, negativ e to include neurologic, eyes, ENT, CV, respiratory, GI, musculoskeletal, , skin, psychiatric, seven tologic, and allergy. Objective Physical Exam VS/I O: Vital Signs: Date Time Temp Pulse Resp B/P B/P Pulse O2 O2 F low FiO2 Mean Ox Delivery Rate 05/15 1316 98.4 53 16 132/72 92.1 97 Room air 05/15 0747 98.2 73 20 143/72 95.5 94 Room air 04/ 0401 97.9 58 17 127/68 87.5 95 Room air 04/ 2339 98.2 76 17 168/73 104.6 97 Room air / 1957 98.4 70 17 159/68 98.3 96 Room air 04/ 1630 99.3 63 16 160/68 98.7 97 Room air 24 hour I O ending at 0700: 05/15 0700 05/14 1900 Intake Total 750 Output Total 1999 Balance -1250 Intake, Oral 750 Number Voids 1 Output, 1999 Hemodialysis PATIENT WEIGHT: Weight (lb): 182 Weight (oz): 5.16 Weight (kg): 82.700 Medications: Active Meds + DC'd Last 24 Hrs Epoetin Donny-epbx 4,000 UNIT TuThSa@2100 SUBQ Hydrocodone Bitart/Acetaminophen 1 TAB Q4H PRN P RN PO Venlafaxine HCl 75 MG DAILY PO Furosemide 40 MG DAILY PO Albumin Human 12.5 GM ASDIR PRN IV Heparin Sodium (Porcine) 3,000 UNIT ASDIR PRN DI ALYSIS Lidocaine HCl 0.5 ML ASDIR PRN I-DERMAL (CKD) Mannitol 12.5 GM ASDIR PRN IV Sodium Chloride 2,000 ML ASDIR PRN IV Sodium Chloride 5 ML ASDIR PRN IV Sodium Chloride 10 ML ASDIR PRN IV Sodium Chloride 250 ML ASDIR PRN IV Buspirone HCl 10 MG BEDTIME PO Gabapentin 300 MG BEDTIME PO Metoprolol Tartrate 25 MG BID PO Mupirocin 1 APPLIC BID NASAL Trazodone HCl 150 MG BEDTIME PO Zolpidem Tartrate 5 MG BEDTIME PRN PRN PO Hydrocodone Bitart/Acetaminophen 1 TAB Q6H PRN P RN PO (DC) Levetiracetam 500 MG Q12HR PO Polyethylene Glycol 17 GM DAILY PO Acetaminophen 650 MG Q6H PRN PRN PO Hydralazine HCl 10 MG Q6H PRN PRN IV Morphine Sulfate 4 MG Q4H PRN PRN IV Ondansetron HCl 4 MG Q4H PRN PRN IV Head/Eyes: PERRL, EOMI, small hematoma p alpable at posterior occiput, abrasion to right temporal area noted as well ENT: atraumatic Neck: full range of motion, non-tender, trachea midline, no JVD C-Spine clearance: no midli ne tenderness, NI flexion w/o pain, NI extension w/ o pain Cardiovascular: BP/pulses equal bilat (radial pu lses present), regular rate rhythm Respiratory/Chest: aerating well, no distress Abdomen: no chest wall deformity or tenderness Pelvis: atraumatic, pelvis stable, no pelvic ten derness Extremities: no tenderness or deformity right AK A noted, R AKA Neuro/CUSTODIAN MANAGER: alert, oriented X 3, no motor deficit s Skin: dry, normal temperature Results Results: vital signs stable, current med profile rev'd Free Text Obj Notes Free Text Obj Notes: Labs and images also reviewed personally. Diagnosis, Assessment Plan Free Text A P: Mechanism: Fall Injuries: SDH Active Problems: ESRD on HD Resolved Problems: n/a Incidental findings: n/a Chronic Medical Problems: CAD, ESRD on HD, dysli pidemia DVT prophylaxis: SCDs, hold lovenox for ICH GI prophylaxis: diet Lines/Be/ETT (placement dates: PIV Consultants: Neurosurg ([facility]), Nephrology Procedures: n/a Plan: Pt was seen and evaluated c Dr Hoffmann, who deter mined the POC As a result of this trauma consultation, pt was admitted to [facility] Subdural hematoma * Stable acute left parafalc ine subdural hematona extending into the L tentorium with minimum left to right midline shift also st able on repeat head CT 05/13 * Neurosurg consulted and ad vised to hold plavix for 72 hours (05/16) and hold ASA until same date * Maintain SBP <140 * Keppra x 7 days * Medically cleared for transfer to rehab facili ty * PT/OT ESRD on HD * chronic renal failure * nephrology consulted, HD continues Diet: Renal diet Labs: AM PT/OT recs: pending DME: recs pending Code status: Full code Medical Decision Making: In the event the patient is incapacitated and not able to make their own medical decisions, the y have elected Marin Mixon, contact number [phone], to make medical decisions f or them. Dispo: Case mgmt consulted, planned inpatient re hab Quality: Trauma Gen Surg Advanced Care Plan 65 or Older Discussed with: patient, Patient noting tonight that he wants to be DNR. We discussed what that means an d he is aware- he made that decision for his mother as well Discussion included: code status, surrog ate decision maker per him is a family friend named Marin Anderson VTE Prophylaxis - General VTE prophylaxis initiated: no pharmacologic, farshad son: (bleeding risk) Tri Hoffmann 05/15/20 1538: Attestations Physician Attestation Agree w/findings plan: I was present with the PA during the history and examination. I discussed the case with the PA and agree with the findings and plan as documented in the therapy A's note. 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 he would like to hear more about the facilities here On my exam nad, gcs15, lungs-unlabored on room a ir, cv-regular, R AKA with dressing in place, moving all extremities Plan: PMR consulted for evaluation and facilitation of rehab placement, appreciate assistance May resume Plavix today, 05/15/[address] Susan swenson, Neurosurgery CM for dispo Labs reviewed. Pertinent imaging personally deidra ambriz. Discussed plan with other members of the [facility] are team. Tri Hoffmann MD Trauma/Acute Care Surgery Electronically Signed by Derick Clark on 06/01 at 1412 RPT #:[id number] END OF REPORT 2020-05-15 14:06:00-00:00 [facility] ([facility]) Trauma Progress Note REPORT#:[id number] REPORT STATUS: Signed DATE:05/15/20 TIME: 1405 PATIENT: DARIEN GROSSMAN UNIT #: [id number] ROOM/BED: [place] [address] : 45 AGE: 74 SEX: M ATTEND: Liliam Espino MD ADM AUTHOR: Derick Clark * ALL edits or amendments must be made on the C-Note/computer document * Derick Clark 05/15/20 1406: Subjective Chief Complaint: generalized weakness HPI: No acute events overnight, pt concerned about re hab placement, no complaints this am Review of Systems Neuro: Denies: change in LOC, confusion, dizzin ess, headache, syncope, vision change, weakness. Free Text ROS Notes Free Text ROS Notes: Review of systems: As above; otherwise, negativ e to include neurologic, eyes, ENT, CV, respiratory, GI, musculoskeletal, , skin, psychiatric, seven tologic, and allergy. Objective Physical Exam VS/I O: Vital Signs: Date Time Temp Pulse Resp B/P B/P Pulse O2 O2 F low FiO2 Mean Ox Delivery Rate 05/15 1316 98.4 53 16 132/72 92.1 97 Room air 05/15 0747 98.2 73 20 143/72 95.5 94 Room air 05/15 0401 97.9 58 17 127/68 87.5 95 Room air 05/14 2339 98.2 76 17 168/73 104.6 97 Room air 05/14 1957 98.4 70 17 159/68 98.3 96 Room air 05/14 1630 99.3 63 16 160/68 98.7 97 Room air 24 hour I O ending at 0700: 05/15 0700 05/14 1900 Intake Total 750 Output Total 1999 Balance -1250 Intake, Oral 750 Number Voids 1 Output, 1999 Hemodialysis PATIENT WEIGHT: Weight (lb): 182 Weight (oz): 5.16 Weight (kg): 82.700 Medications: Active Meds + DC'd Last 24 Hrs Epoetin Donny-epbx 4,000 UNIT TuThSa@2100 SUBQ Hydrocodone Bitart/Acetaminophen 1 TAB Q4H PRN P RN PO Venlafaxine HCl 75 MG DAILY PO Furosemide 40 MG DAILY PO Albumin Human 12.5 GM ASDIR PRN IV Heparin Sodium (Porcine) 3,000 UNIT ASDIR PRN DI ALYSIS Lidocaine HCl 0.5 ML ASDIR PRN I-DERMAL (CKD) Mannitol 12.5 GM ASDIR PRN IV Sodium Chloride 2,000 ML ASDIR PRN IV Sodium Chloride 5 ML ASDIR PRN IV Sodium Chloride 10 ML ASDIR PRN IV Sodium Chloride 250 ML ASDIR PRN IV Buspirone HCl 10 MG BEDTIME PO Gabapentin 300 MG BEDTIME PO Metoprolol Tartrate 25 MG BID PO Mupirocin 1 APPLIC BID NASAL Trazodone HCl 150 MG BEDTIME PO Zolpidem Tartrate 5 MG BEDTIME PRN PRN PO Hydrocodone Bitart/Acetaminophen 1 TAB Q6H PRN P RN PO (DC) Levetiracetam 500 MG Q12HR PO Polyethylene Glycol 17 GM DAILY PO Acetaminophen 650 MG Q6H PRN PRN PO Hydralazine HCl 10 MG Q6H PRN PRN IV Morphine Sulfate 4 MG Q4H PRN PRN IV Ondansetron HCl 4 MG Q4H PRN PRN IV Head/Eyes: PERRL, EOMI, small hematoma p alpable at posterior occiput, abrasion to right temporal area noted as well ENT: atraumatic Neck: full range of motion, non-tender, trachea midline, no JVD C-Spine clearance: no midli ne tenderness, NI flexion w/o pain, NI extension w/ o pain Cardiovascular: BP/pulses equal bilat (radial pu lses present), regular rate rhythm Respiratory/Chest: aerating well, no distress Abdomen: no chest wall deformity or tenderness Pelvis: atraumatic, pelvis stable, no pelvic ten derness Extremities: no tenderness or deformity right AK A noted, R AKA Neuro/CUSTODIAN MANAGER: alert, oriented X 3, no motor deficit s Skin: dry, normal temperature Results Results: vital signs stable, current med profile rev'd Free Text Obj Notes Free Text Obj Notes: Labs and images also reviewed personally. Diagnosis, Assessment Plan Free Text A P: Mechanism: Fall Injuries: SDH Active Problems: ESRD on HD Resolved Problems: n/a Incidental findings: n/a Chronic Medical Problems: CAD, ESRD on HD, dysli pidemia DVT prophylaxis: SCDs, hold lovenox for ICH GI prophylaxis: diet Lines/Be/ETT (placement dates: PIV Consultants: Neurosurg ([facility]), Nephrology Procedures: n/a Plan: Pt was seen and evaluated c Dr Hoffmann, who deter mined the POC As a result of this trauma consultation, pt was admitted to [facility] Subdural hematoma * Stable acute left parafalc ine subdural hematona extending into the L tentorium with minimum left to right midline shift also st able on repeat head CT 05/13 * Neurosurg consulted and ad vised to hold plavix for 72 hours (05/16) and hold ASA until same date * Maintain SBP <140 * Keppra x 7 days * Medically cleared for transfer to rehab facili ty * PT/OT ESRD on HD * chronic renal failure * nephrology consulted, HD continues Diet: Renal diet Labs: AM PT/OT recs: pending DME: recs pending Code status: Full code Medical Decision Making: In the event the patient is incapacitated and not able to make their own medical decisions, the y have elected Marin Mixon, contact number [phone], to make medical decisions f or them. Dispo: Case mgmt consulted, planned inpatient re hab Quality: Trauma Gen Surg Advanced Care Plan 65 or Older Discussed with: patient, Patient noting tonight that he wants to be DNR. We discussed what that means an d he is aware- he made that decision for his mother as well Discussion included: code status, surrog ate decision maker per him is a family friend named Marin Anderson VTE Prophylaxis - General VTE prophylaxis initiated: no pharmacologic, farshad son: (bleeding risk) Tri Hoffmann 05/15/20 1538: Attestations Physician Attestation Agree w/findings plan: I was present with the PA during the history and examination. I discussed the case with the PA and agree with the findings and plan as documented in the therapy A's note. 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 he would like to hear more about the facilities here On my exam nad, gcs15, lungs-unlabored on room a ir, cv-regular, R AKA with dressing in place, moving all extremities Plan: PMR consulted for evaluation and facilitation of rehab placement, appreciate assistance May resume Plavix today, 05/15/[address] Susan swenson, Neurosurgery CM for dispo Labs reviewed. Pertinent imaging personally revi ewed. Discussed plan with other members of the [facility] are team. Tri Hoffmann MD Trauma/Acute Care Surgery Electronically Signed by Derick Clark PA on 06/01 at 1412 Electronically Signed by Tri Hoffmann MD 05/15/20 at 1544 RPT #:[id number] END OF REPORT 2020-05-15 11:09:00-00:00 [facility] ([facility]) Nephrology Progress Note REPORT#:[id number] REPORT STATUS: Signed DATE:05/15/20 TIME: 110 PATIENT: DARIEN GROSSMAN UNIT #: [id number] ROOM/BED: [place] [address] : 45 AGE: 74 SEX: M ATTEND: Liliam Espino MD ADM AUTHOR: Anders Quick MD * ALL edits or amendments must be made on the C-Note/computer document * Subjective Chief Complaint: Patient with ESRD admitted w a fall. Doing well. Had HD yesterday. Tolerated well. He will be dialyzed tomorrow again . He seems to be making good amount of urine every day. He was asking about recovery of kidney functions. He also requests to remove no more than 2 L of fluid wit h dialysis. Objective General VS/I O: Vital Signs: Date Time Temp Pulse Resp B/P B/P Pulse O2 O2 Flow FiO2 Mean Ox Delivery Rate 05/15 0747 36.8 73 20 143/72 95.5 94 Room air 05/15 0401 36.6 58 17 127/68 87.5 95 Room air / 2339 36.8 76 17 168/73 104.6 97 Room air / 1957 36.9 70 17 159/68 98.3 96 Room air / 1630 37.4 63 16 160/68 98.7 97 Room air 04/ 1227 36.4 72 16 179/75 109.6 98 Room air 24 hour I O ending at 0700: 05/15 0700 05/14 1900 Intake Total 750 Output Total 1999 Balance -1250 Intake, Oral 750 Number Voids 1 Output, 1999 Hemodialysis PATIENT WEIGHT: Weight (lb): 182 Weight (oz): 5.16 Weight (kg): 82.700 Medications Active Meds + DC'd Last 24 Hrs Epoetin Donny-epbx 4,000 UNIT TuThSa@2100 SUBQ Hydrocodone Bitart/Acetaminophen 1 TAB Q4H PRN P RN PO Venlafaxine HCl 75 MG DAILY PO Furosemide 40 MG DAILY PO Albumin Human 12.5 GM ASDIR PRN IV Heparin Sodium (Porcine) 3,000 UNIT ASDIR PRN DI ALYSIS Lidocaine HCl 0.5 ML ASDIR PRN I-DERMAL (CKD) Mannitol 12.5 GM ASDIR PRN IV Sodium Chloride 2,000 ML ASDIR PRN IV Sodium Chloride 5 ML ASDIR PRN IV Sodium Chloride 10 ML ASDIR PRN IV Sodium Chloride 250 ML ASDIR PRN IV Buspirone HCl 10 MG BEDTIME PO Gabapentin 300 MG BEDTIME PO Metoprolol Tartrate 25 MG BID PO Mupirocin 1 APPLIC BID NASAL Trazodone HCl 150 MG BEDTIME PO Zolpidem Tartrate 5 MG BEDTIME PRN PRN PO Hydrocodone Bitart/Acetaminophen 1 TAB Q6H PRN P RN PO (DC) Levetiracetam 500 MG Q12HR PO Polyethylene Glycol 17 GM DAILY PO Acetaminophen 650 MG Q6H PRN PRN PO Hydralazine HCl 10 MG Q6H PRN PRN IV Morphine Sulfate 4 MG Q4H PRN PRN IV Ondansetron HCl 4 MG Q4H PRN PRN IV Nutrition assessment: The data set between the solid lines has been im ported from the dietitian's assessment. Any exceptions have been noted under Provider comments. BMI Calculated: 26.9 Nutrition related diagnosis: Nutrition diagnosis details: Nutrition problem: Nutrition etiology: Nutrition signs and symptoms: Nutrition prescription: Dietitian name: Assessment completed: Provider comments on imported dietitian assessme nt: Physical Exam General appearance: alert, awake, oriented Head/eyes: atraumatic, normocephalic Cardiovascular: normal heart sounds, regular rat e and rhythm Respiratory: clear to auscultation, normal breat h sounds Abdomen: non-tender, normal bowel sounds, soft Extremities: no edema, RT AKA Neuro/CUSTODIAN MANAGER: alert, oriented X 3, normal speech Hemodialysis access: Type: AV fistula Location: left forearm Diagnosis, Assessment Plan Free Text A P: 1. ESRD 2. Hyperkalemia 3. Hypertension 4. Status post fall and acute SDH 5. Anemia of chronic kidney disease 6. Coronary artery disease Plan -HD MWF as outpatient. Last dialysis was on . Potassium low and replaced. Due to short staffing HD is done today , will schedule him for dialysis to MWF from next week. No labs today -Blood pressure currently stable and home medica tions restarted with holding parameters -Renal diet -Hemoglobin has been low. Start Epogen 3 times w eekly -Phos has been stable -Neurosurgery follow-up. Blood thinners on hold. We will continue to follow. at 1309 RPT #:[id number] END OF REPORT 2020-05-15 07:41[facility]00[facility]00:00 [facility] Adult General Consultation REPORT#:[id number] REPORT STATUS: Signed DATE:05/15/20 TIME: 740 PATIENT: DARIEN GROSSMAN UNIT #: [id number] ROOM/BED: [place] [address] : 45 AGE: 74 SEX: M ATTEND: Becky Espino MD ADM AUTHOR: Sharon Dunaway * ALL edits or amendments must be made on the C-Note/computer document * History of Present Illness Requesting Clinician: Trauma Reason for consult: PMR eval Chief complaint: Fall with SDH HPI: This is a 74 year old male ( 5 feet 9 in, 195 lbs) with a PMH of CAD with stents (on Plavix), ESRD on HD, dys lipidemia, right AKA (Mar 2020) who presented to the ER from [facility] s/p fall three days ago with C T head revealing SDH. Patient states he has "intermittent memory loss" and steele s not remember the events surrounding the fall but does state he has falle n four times related to ambulation. CT head with acute left parafalcine SDH and NSGY was consulted.No surgery was needed. We have been asked to see pt from PMR standpoint. History - Adult longitudinal Past medical history: Reports: Coronary artery disease ( and stents 4 years ago). Additional medical history: ESRD, high cholesterol Additional surgical history: recent right AKA, previous right knee replacemen t complicated by infection Family history: Denies: CAD < 40 yrs old, Coagulopathy. Additional family history: he has a daughter and 2 sons but states they are not his surrogate decision makers. A family friend named Marin Anderson is the person he is currently designating Alcohol use: Denies EtOH use Drug use: Denies recreational drugs Smoking status: Smoking status for patients 13 years old or old er: Never Smoker Medications: Home Medications: Medication Dose/Rte/Freq Days Qty Entered Last Max Daily Dose Reviewed busPIRone (BUSPAR) 10 MG PO BEDTIME 05/13/20 Strength: 10 MG TAB 1443 1936 HYDROcodone/APAP 1 TAB PO 05/13/20 05/13/20 (NORCO 10/325) Q6H PRN PRN PAIN 1443 1936 Strength: 10 MG-325 MG TAB ZOLPIDEM (AMBIEN) 10 MG PO 05/13/20 05/13/20 Strength: 10 MG TAB BEDTIME PRN 1444 1936 INSOMNIA GABAPENTIN (NEURONTIN) 300 MG PO BEDTIME 05/13/20 Strength: 300 MG CAP 1445 1936 DESVENLAFAXINE ER 25 MG PO DAILY 05/13/2005/13 (PRISTIQ) 1446 193 Strength: 50 MG TAB.SR.24H traZODone (DESYREL) 150 MG PO BEDTIME 05/13/20 05/13/20 Strength: 150 MG TAB 1446 1936 FUROSEMIDE (LASIX) 40 MG PO DAILY 05/13/2004/03 Strength: 40 MG TAB 1447 1936 METOPROLOL TARTRATE 25 MG PO BID 05/13/2005/13 (LOPRESSOR) 1448 193 Strength: 25 MG TAB levETIRAcetam (KEPPRA) 500 MG PO Q12HR 10 05/14 Strength: 500 MG TAB 1333 Current Hospital Medications: Blood Derivatives Sig/Tatum Start time Last Medication Dose Route Stop Time Status Admin Albumin Human 12.5 GM ASDIR PRN 05/14 0845 AC (ALBUMINAR-25%) IV 06/14 0844 Blood Formation,Coagulation Sig/Tatum Start time Last Medication Dose Route Stop Time Status Admin Epoetin Donny-epbx 4,000 UNIT TuThSa@2100 05/14 2099 AC 05/14 (RETACRIT) SUBQ 06/13 Heparin Sodium 3,000 UNIT ASDIR PRN 05/14 08 AC (Porcine) DIALYSIS 06/14 843 (HEPARIN SODIUM) Cardiovascular Drugs Sig/Tatum Start time Last Medication Dose Route Stop Time Status Admin Lidocaine HCl 0.5 ML ASDIR PRN 05/14 844 CKD (LIDOCAINE HCL/PF) I-DERMAL 06/15 843 Metoprolol Tartrate 25 MG BID 05/13 2099 AC (LOPRESSOR) PO 06/12 Hydralazine HCl 10 MG Q6H PRN PRN 05/13 244 AC 05/13 (APRESOLINE) IV 06/13 243 215 Central Nervous System Agents Sig/Tatum Start time Last Medication Dose Route Stop Time Status Admin Hydrocodone Bitart/ 1 TAB Q4H PRN PRN 05/14 141 5 AC 05/15 Acetaminophen PO 05/19 1411 0518 (NORCO 10/325) Venlafaxine HCl 75 MG DAILY 05/14 1300 AC 05/14 (Effexor XR 37.5 mg) PO 06/13 1259 1427 Buspirone HCl 10 MG BEDTIME 05/13 2099 AC 05/14 (BUSPAR) PO 06/12 Gabapentin 300 MG BEDTIME 05/13 2099 AC 05/14 (NEURONTIN) PO 06/12 Trazodone HCl 150 MG BEDTIME 05/13 2099 AC 3 (DESYREL) PO 06/12 Zolpidem Tartrate 5 MG BEDTIME PRN PRN 05/13 20 00 AC 05/14 (AMBIEN) PO 06/12 Hydrocodone Bitart/ 1 TAB Q6H PRN PRN 05/13 160 0 DC 05/14 Acetaminophen PO 05/18 1559 0942 (NORCO 10/325) Levetiracetam 500 MG Q12HR 05/13 0900 AC 05/14 (KEPPRA) PO 05/19 0901 2137 Acetaminophen 650 MG Q6H PRN PRN 05/13 0245 AC (TYLENOL) PO 06/12 0244 Morphine Sulfate 4 MG Q4H PRN PRN 05/13 0245 AC 05/14 (morphine SULFATE) IV 05/18 0244 2137 Electrolytic, Caloric, And Nadia Sig/Tatum Start time Last Medication Dose Route Stop Time Status Admin Furosemide 40 MG DAILY 05/14 0900 AC 05/14 (LASIX) PO 06/13 0859 1210 Mannitol 12.5 GM ASDIR PRN 05/14 0845 AC (MANNITOL 25% 12.5GM/ IV 06/14 0844 50ML) Sodium Chloride 2,000 ML ASDIR PRN 05/14 0845 A C 05/14 (SODIUM CHLORIDE IV 06/14 0844 1108 0.9%) Sodium Chloride 5 ML ASDIR PRN 05/14 0845 AC (SODIUM CHLORIDE) IV 06/13 08 Sodium Chloride 10 ML ASDIR PRN 05/14 0845 AC 0 05/14 (SODIUM CHLORIDE) IV 06/13 0844 1109 Sodium Chloride 250 ML ASDIR PRN 05/14 0845 AC (SODIUM CHLORIDE IV 06/13 0844 0.9%) Gastrointestinal Drugs Sig/Tatum Start time Last Medication Dose Route Stop Time Status Admin Polyethylene Glycol 17 GM DAILY 05/13 09 AC 0 05/14 (MIRALAX) PO 06/12 0859 1209 Ondansetron HCl 4 MG Q4H PRN PRN 05/13 0245 AC (ZOFRAN) IV 06/12 0244 Skin And Mucous Membrane Agent Sig/Tatum Start time Last Medication Dose Route Stop Time Status Admin Mupirocin 1 APPLIC BID 05/13 2100 AC 05/14 (BACTROBAN 2% 22 GM NASAL 05/18 0901 2138 OINTMENT) Allergies: Coded Allergies: shellfish derived (Severe, SWELLING 05/13/20) Iodine and Iodide Containing Produc (Mild, DIARR HEA 05/13/20) Uncoded Allergies: PINICILLIN (Mild, ITCHING 05/13/20) Ambulatory status: Walker Review of Systems Constitutional: generalized weakness. Denies: chills, fatigue, f ever. Skin: Denies: abrasion, bruising, contusion, diaphores is. Allergy/Immun: Denies: allergic reaction, anaphylaxis, hives, i tching, rhinorrhea, sneezing, other. Eyes: Denies: redness, discharge, visual loss/blurred. ENT: Denies: ear drainage, ear ringing, earache. Respiratory: Denies: STEELE (dyspnea on exertion), hemoptysis, n on productive cough. Cardiovascular: Denies: chest pain, STEELE (dyspnea on exertion), e jean. GI: Denies: abdominal pain, anorexia, constipation, diarrhea. : Denies: dysuria, flank pain, frequency, hematuri a. Musculoskeletal: Denies: extremity pain, extremity swelling, join t pain. Heme: Denies: adenopathy, bleeding, bruising. Endocrine: Denies: cold intolerance, heat intolerance, poly dipsia, polyphagia. Neuro: Denies: bladder dysfunction, bowel dysfunction, confusion. Psych: Denies: agitation, anxiety, auditory hallucinati on, change in mental status. Objective VS/I O: Last Documented: Result Date Time Pulse Ox 94 05/15 746 B/P 143/72 05/15 0747 B/P Mean 95.5 05/15 07 O2 Delivery Room air 05/15 746 Temp 98.2 05/15 07 Pulse 73 05/15 0747 Resp 20 05/15 746 O2 Flow Rate 0.0 05/13 1600 FiO2 98 05/13 1200 24 hour I O ending at 0700: 05/15 0700 05/14 1900 Intake Total 750 Output Total 1999 Balance -1250 Intake, Oral 750 Number Voids 1 Output, 1999 Hemodialysis PATIENT WEIGHT: Weight (lb): 182 Weight (oz): 5.16 Weight (kg): 82.700 General appearance: alert, awake, oriented Head/Eyes: atraumatic, clear cornea, EOMI ENT: normal dentition, normal ear left, normal e ar right Neck: full range of motion, non-tender, no lymph adenopathy Cardiovascular: normal capillary refill, pedal p ulses present, regular rate rhythm, normal heart sounds Respiratory: aerating well, clear to auscultatio n, no distress Abdomen: soft, non-tender, no guarding, no rebou nd Genitourinary: not indicated Extremities: moves all, no edema, no clubbing, R ight AKA, Left arm AVF Musculoskeletal: no muscle s pasm, Moves all 4 against gravity, Strength BUE 4/5 RT HF/Stump 3/5 LLE 3/5 Neuro/CUSTODIAN MANAGER: alert, oriented X 3, CNII-XII grossly intact Skin: no abscess, no rash, Stump with dressing D /I Lymphatics: no lymphadenopathy Psychiatry: normal affect, normal judgment/insig ht, normal mood Results Findings/Data: Laboratory Tests: 05/14 05/14 0845 0815 Chemistry Sodium (134 - 147 mEq/L) 138 Potassium (3.4 - 5.0 mEq/L) 4.1 Chloride (100 - 108 mEq/L) 105 Carbon Dioxide (21 - 33 mEq/l) 27 Anion Gap (0 - 20) 10 BUN (7 - 18 mg/dL) 23 H Creatinine (0.6 - 1.3 mg/dL) 3.0 H Glomerular Filtr Rate (70 - 80) 20.6 L Glucose (70 - 110 mg/dL) 89 Calcium (8.0 - 10.5 mg/dL) 8.5 Hematology WBC (4.5 - 11.0 x10 3/uL) 9.1 RBC (4.00 - 5.60 x10 6/uL) 2.80 L Hgb (12.5 - 16.9 g/dL) 8.2 L Hct (37.5 - 50.7 %) 26.2 L MCV (81.0 - 99.0 fL) 93.6 MCH (27.0 - 33.0 pg) 29.3 MCHC (33.0 - 37.0 g/dL) 31.3 L RDW (11.5 - 14.5 %) 15.6 H Plt Count (150 - 400 x10 3/uL) 265 MPV (7.0 - 9.0 fL) 9.1 H Neut % (Auto) (56.0 - 77.0 %) 70.1 Lymph % (Auto) (14.0 - 32.0 %) 11.2 L Dolores % (Auto) (4.8 - 9.0 %) 11.0 H Eos % (Auto) (0.3 - 3.7 %) 7.2 H Baso % (Auto) (0.0 - 2.0 %) 0.3 Neut # (Auto) (2.0 - 7.6 x10 3/uL) 6.38 Lymph # (Auto) (1.0 - 3.8 x10 3/uL) 1.02 Dolores # (Auto) (0.1 - 0.8 x10 3/uL) 1.00 H Eos # (Auto) (0.0 - 0.2 x10 3/uL) 0.66 H Baso # (Auto) (0.0 - 0.2 x10 3/uL) 0.03 Abs Immat Gran (auto) (0.00 - 0.03 x10 3/uL) 0 .02 Add Manual Diff NO Immature Gran % (0.0 - 2.0 %) 0.2 Nucleated RBC % (0 - 0 %) 0.0 Nucleated RBCs # (Man) (0.0 - 0.1 x10 3/uL) 0.0 0 Serology Hepatitis A IgM Ab (NON REACT. INDEX) NON REACT EMMANUEL Hep Bs Antigen (NonReactive INDEX) NON REACTIVE Hep B Core IgM Ab (NON REACT. INDEX) NON REACT EMMANUEL Hepatitis C Antibody (NON REACT. INDEX) NON FARSHAD CTIVE Diagnosis, Assessment Plan Free Text DxA P Notes Free Text DxA P Notes: Mechanical fall TBI with SDH Recent right AKA 04/03 Impaired mobility and gait Generalized weakness Frequent falls since AKA ESRD CAD HLD Anemia Plan: PT/OT consulted -evals pending Nephrolgoy following- ESRD/HD Hemoglobin has been low. Started Epogen 3 times weekly Stable acute left parafalcine subdural h ematona extending into the L tentorium with minimum left to right midline shift also st able on repeat head CT 05/13 Neurosurg consulted and advised to hold plavix for 72 hours (05/16) and hold ASA until same date No intervention for SDH Maintain SBP <140 Keppra x 7 days Mobilize pt OOB to chair Work on strength, transfers standing, WC mobilit y Fall precautions Monitor po intake and nutrition Decub precautions Advance therapies as tolerated. We will follow-up after evals Pt wants to go to [facility] for rehab Thank you for referral. Quality: Gen Med Crit Care Advanced Care Plan 65 or Older Discussed with: patient, Patient noting tonight that he wants to be DNR. We discussed what that means an d he is aware- he made that decision for his mother as well Discussion included: code status, surrog ate decision maker per him is a family friend named Marin Anderson at 1147 RPT #:[id number] END OF REPORT 2020-05-14 15:07:00-00:00 [facility] ([facility]) Trauma Progress Note REPORT#:[id number] REPORT STATUS: Signed DATE:05/14/20 TIME: 1507 PATIENT: DARIEN GROSSMAN UNIT #: [id number] ROOM/BED: [facility] : 45 AGE: 74 SEX: M ATTEND: Liliam Espino MD ADM AUTHOR: Derick Clark * ALL edits or amendments must be made on the C-Note/Above All Software document * Subjective Chief Complaint: generalized weakness HPI: no acute events overnight, no change in mental s tatus, repeat CT head stable Patient reports: Yes: feeling better, headache, pain controlled, resting comfortable. No: abdominal pain, bowel movement, chest pain, conf used, diarrhea, nausea, vomiting. Review of Systems Neuro: Reports: headache. Denies: change in LOC, confus ion, dizziness, lightheaded, slurred speech, syncope, vision change, weakness . Free Text ROS Notes Free Text ROS Notes: Review of systems: As above; otherwise, negativ e to include neurologic, eyes, ENT, CV, respiratory, GI, musculoskeletal, , skin, psychiatric, seven tologic, and allergy. Objective Physical Exam VS/I O: Vital Signs: Date Time Temp Pulse Resp B/P B/P Pulse O2 O2 F low FiO2 Mean Ox Delivery Rate 05/14 1227 97.5 72 16 179/75 109.6 98 Room air / 0728 98.8 67 16 147/66 92.9 96 Room air / 0318 98.4 60 16 127/63 84.6 96 Room air 04/ 2359 98.4 66 16 116/55 75.3 95 Room air 04/02 2301 59 18 110/56 80 95 /02 2200 72 22 156/72 103 94 04/02 2130 76 14 162/71 102 95 04/ 2100 72 7 153/70 100 96 04/02 2030 73 12 163/72 103 96 04/ 2000 98.9 05/14 1999 71 18 157/71 102 96 04/02 1930 71 13 150/68 98 96 04/ 1900 69 13 147/67 96 95 04/02 1600 98.1 75 21 134/65 88 98 Room air 0.0 24 hour I O ending at 0700: 04/03 0700 04/02 1900 Intake Total 100 650 Output Total 400 800 Balance -300 -150 Intake, Oral 100 650 Number 0 Bowel Movements Number Voids 3 Output, Urine 400 800 Patient 82.7 kg Weight Weight Bed scale Measurement Method PATIENT WEIGHT: Weight (lb): 182 Weight (oz): 5.16 Weight (kg): 82.700 Medications: Active Meds + DC'd Last 24 Hrs Epoetin Donny-epbx 4,000 UNIT TuThSa@2100 SUBQ Hydrocodone Bitart/Acetaminophen 1 TAB Q4H PRN P RN PO Venlafaxine HCl 75 MG DAILY PO Furosemide 40 MG DAILY PO Albumin Human 12.5 GM ASDIR PRN IV Heparin Sodium (Porcine) 3,000 UNIT ASDIR PRN DI ALYSIS Lidocaine HCl 0.5 ML ASDIR PRN I-DERMAL (CKD) Mannitol 12.5 GM ASDIR PRN IV Sodium Chloride 2,000 ML ASDIR PRN IV Sodium Chloride 5 ML ASDIR PRN IV Sodium Chloride 10 ML ASDIR PRN IV Sodium Chloride 250 ML ASDIR PRN IV Buspirone HCl 10 MG BEDTIME PO Gabapentin 300 MG BEDTIME PO Metoprolol Tartrate 25 MG BID PO Mupirocin 1 APPLIC BID NASAL Trazodone HCl 150 MG BEDTIME PO Zolpidem Tartrate 5 MG BEDTIME PRN PRN PO Hydrocodone Bitart/Acetaminophen 1 TAB Q6H PRN P RN PO (DC) Levetiracetam 500 MG Q12HR PO Polyethylene Glycol 17 GM DAILY PO Acetaminophen 650 MG Q6H PRN PRN PO Hydralazine HCl 10 MG Q6H PRN PRN IV Hydrocodone Bitart/Acetaminophen 1 TAB Q4H PRN P RN PO (DC) Morphine Sulfate 4 MG Q4H PRN PRN IV Ondansetron HCl 4 MG Q4H PRN PRN IV Tramadol HCl 50 MG Q4H PRN PRN PO (DC) Sodium Chloride 0 ASDIR PRN IV (DC) Head/Eyes: PERRL, EOMI, small hematoma p alpable at posterior occiput, abrasion to right temporal area noted as well ENT: atraumatic Neck: full range of motion, non-tender, trachea midline, no JVD C-Spine clearance: no midli ne tenderness, NI flexion w/o pain, NI extension w/ o pain Cardiovascular: BP/pulses equal bilat (radial pu lses present), regular rate rhythm Respiratory/Chest: aerating well, no distress Abdomen: no chest wall deformity or tenderness Back/spine: Back: non-tender, no midline vertebral tend Pelvis: atraumatic, pelvis stable, no pelvic ten derness Extremities: no tenderness or deformity right AK A noted Neuro/CUSTODIAN MANAGER: alert, oriented X 3, no motor deficit s Skin: dry, normal temperature Results Findings/Data: Laboratory Tests 05/14 814 Chemistry Sodium (134 - 147 mEq/L) 138 Potassium (3.4 - 5.0 mEq/L) 4.1 Chloride (100 - 108 mEq/L) 105 Carbon Dioxide (21 - 33 mEq/l) 27 Anion Gap (0 - 20) 10 BUN (7 - 18 mg/dL) 23 H Creatinine (0.6 - 1.3 mg/dL) 3.0 H Glomerular Filtr Rate (70 - 80) 20.6 L Glucose (70 - 110 mg/dL) 89 Calcium (8.0 - 10.5 mg/dL) 8.5 Laboratory Tests 05/14 814 Hematology WBC (4.5 - 11.0 x10 3/uL) 9.1 RBC (4.00 - 5.60 x10 6/uL) 2.80 L Hgb (12.5 - 16.9 g/dL) 8.2 L Hct (37.5 - 50.7 %) 26.2 L MCV (81.0 - 99.0 fL) 93.6 MCH (27.0 - 33.0 pg) 29.3 MCHC (33.0 - 37.0 g/dL) 31.3 L RDW (11.5 - 14.5 %) 15.6 H Plt Count (150 - 400 x10 3/uL) 265 MPV (7.0 - 9.0 fL) 9.1 H Neut % (Auto) (56.0 - 77.0 %) 70.1 Lymph % (Auto) (14.0 - 32.0 %) 11.2 L Dolores % (Auto) (4.8 - 9.0 %) 11.0 H Eos % (Auto) (0.3 - 3.7 %) 7.2 H Baso % (Auto) (0.0 - 2.0 %) 0.3 Neut # (Auto) (2.0 - 7.6 x10 3/uL) 6.38 Lymph # (Auto) (1.0 - 3.8 x10 3/uL) 1.02 Dolores # (Auto) (0.1 - 0.8 x10 3/uL) 1.00 H Eos # (Auto) (0.0 - 0.2 x10 3/uL) 0.66 H Baso # (Auto) (0.0 - 0.2 x10 3/uL) 0.03 Abs Immat Gran (auto) (0.00 - 0.03 x10 3/uL) 0. 02 Add Manual Diff NO Immature Gran % (0.0 - 2.0 %) 0.2 Nucleated RBC % (0 - 0 %) 0.0 Nucleated RBCs # (Man) (0.0 - 0.1 x10 3/uL) 0.0 0 Laboratory Tests 05/14 0845 Serology Hepatitis A IgM Ab (NON REACT. INDEX) NON REACT EMMANUEL Hep Bs Antigen (NonReactive INDEX) NON REACTIVE Hep B Core IgM Ab (NON REACT. INDEX) NON REACTI VE Hepatitis C Antibody (NON REACT. INDEX) NON FARSHAD CTIVE Results: labs reviewed, ramy l signs stable, current med profile rev'd, tertiary exam performed Free Text Obj Notes Free Text Obj Notes: Labs and images also reviewed personally. Diagnosis, Assessment Plan Free Text A P: Mechanism: Fall Injuries: SDH Active Problems: ESRD on HD Resolved Problems: n/a Incidental findings: n/a Chronic Medical Problems: CAD, ESRD on HD, dysli pidemia DVT prophylaxis: SCDs, hold lovenox for ICH GI prophylaxis: diet Lines/Be/ETT (placement dates: PIV Consultants: Neurosurg ([facility]), Nephrology Procedures: n/a Plan: Pt was seen and evaluated c Dr Hoffmann, who deter mined the POC As a result of this trauma consultation, pt was admitted to [facility] Subdural hematoma * Stable acute left parafalc ine subdural hematona extending into the L tentorium with minimum left to right midline shift also st able on repeat head CT 05/13 * Neurosurg consulted and ad vised to hold plavix for 72 hours (05/16) and hold ASA until same date * Maintain SBP <140 * Keppra x 7 days * Medically cleared for transfer to rehab facili ty * PT/OT ESRD on HD * chronic renal failure * nephrology consulted, HD continues Diet: Renal diet Labs: AM PT/OT recs: pending DME: recs pending Code status: Full code Medical Decision Making: In the event the patient is incapacitated and not able to make their own medical decisions, the y have elected [facility] Mixon, contact number [phone], to make medical decisions f or them. Dispo: Case mgmt consulted Quality: Trauma Gen Surg Advanced Care Plan 65 or Older Discussed with: patient, Patient noting tonight that he wants to be DNR. We discussed what that means an d he is aware- he made that decision for his mother as well Discussion included: code status, surrog ate decision maker per him is a family friend named Marin Anderson VTE Prophylaxis - General VTE prophylaxis initiated: no pharmacologic, farshad son: (bleeding risk) Electronically Signed by Derick Clark on 05/01 at 1521 RPT #:[id number] END OF REPORT 2020-05-14 15:07:00-00:00 [facility] ([facility]) Trauma Progress Note REPORT#:[id number] REPORT STATUS: Signed DATE:05/14/20 TIME: 1507 PATIENT: DARIEN GROSSMAN UNIT #: [id number] ROOM/BED: [place] [address] : 45 AGE: 74 SEX: M ATTEND: Becky Espino MD ADM AUTHOR: Derick Clark * ALL edits or amendments must be made on the C-Note/computer document * See Addendum Subjective Chief Complaint: generalized weakness HPI: no acute events overnight, no change in mental s tatus, repeat CT head stable Patient reports: Yes: feeling better, headache, pain controlled, resting comfortable. No: abdominal pain, bowel movement, chest pain, conf used, diarrhea, nausea, vomiting. Review of Systems Neuro: Reports: headache. Denies: change in LOC, confus ion, dizziness, lightheaded, slurred speech, syncope, vision change, weakness . Free Text ROS Notes Free Text ROS Notes: Review of systems: As above; otherwise, negativ e to include neurologic, eyes, ENT, CV, respiratory, GI, musculoskeletal, , skin, psychiatric, seven tologic, and allergy. Objective Physical Exam VS/I O: Vital Signs: Date Time Temp Pulse Resp B/P B/P Pulse O2 O2 F low FiO2 Mean Ox Delivery Rate 05/14 1227 97.5 72 16 179/75 109.6 98 Room air 05/14 0728 98.8 67 16 147/66 92.9 96 Room air 05/14 0318 98.4 60 16 127/63 84.6 96 Room air 05/13 2359 98.4 66 16 116/55 75.3 95 Room air 05/13 2301 59 18 110/56 80 95 05/13 2200 72 22 156/72 103 94 05/13 2130 76 14 162/71 102 95 / 2100 72 7 153/70 100 96 05/13 2029 73 12 163/72 103 96 05/13 2000 98.9 05/14 1999 71 18 157/71 102 96 / 1930 71 13 150/68 98 96 04 1900 69 13 147/67 96 95 04/02 1600 98.1 75 21 134/65 88 98 Room air 0.0 24 hour I O ending at 0700: 05/14 0700 05/13 1900 Intake Total 100 650 Output Total 400 800 Balance -300 -150 Intake, Oral 100 650 Number 0 Bowel Movements Number Voids 3 Output, Urine 400 800 Patient 82.7 kg Weight Weight Bed scale Measurement Method PATIENT WEIGHT: Weight (lb): 182 Weight (oz): 5.16 Weight (kg): 82.700 Medications: Active Meds + DC'd Last 24 Hrs Epoetin Donny-epbx 4,000 UNIT TuThSa@2100 SUBQ Hydrocodone Bitart/Acetaminophen 1 TAB Q4H PRN P RN PO Venlafaxine HCl 75 MG DAILY PO Furosemide 40 MG DAILY PO Albumin Human 12.5 GM ASDIR PRN IV Heparin Sodium (Porcine) 3,000 UNIT ASDIR PRN DI ALYSIS Lidocaine HCl 0.5 ML ASDIR PRN I-DERMAL (CKD) Mannitol 12.5 GM ASDIR PRN IV Sodium Chloride 2,000 ML ASDIR PRN IV Sodium Chloride 5 ML ASDIR PRN IV Sodium Chloride 10 ML ASDIR PRN IV Sodium Chloride 250 ML ASDIR PRN IV Buspirone HCl 10 MG BEDTIME PO Gabapentin 300 MG BEDTIME PO Metoprolol Tartrate 25 MG BID PO Mupirocin 1 APPLIC BID NASAL Trazodone HCl 150 MG BEDTIME PO Zolpidem Tartrate 5 MG BEDTIME PRN PRN PO Hydrocodone Bitart/Acetaminophen 1 TAB Q6H PRN P RN PO (DC) Levetiracetam 500 MG Q12HR PO Polyethylene Glycol 17 GM DAILY PO Acetaminophen 650 MG Q6H PRN PRN PO Hydralazine HCl 10 MG Q6H PRN PRN IV Hydrocodone Bitart/Acetaminophen 1 TAB Q4H PRN P RN PO (DC) Morphine Sulfate 4 MG Q4H PRN PRN IV Ondansetron HCl 4 MG Q4H PRN PRN IV Tramadol HCl 50 MG Q4H PRN PRN PO (DC) Sodium Chloride 0 ASDIR PRN IV (DC) Head/Eyes: PERRL, EOMI, small hematoma p alpable at posterior occiput, abrasion to right temporal area noted as well ENT: atraumatic Neck: full range of motion, non-tender, trachea midline, no JVD C-Spine clearance: no midli ne tenderness, NI flexion w/o pain, NI extension w/ o pain Cardiovascular: BP/pulses equal bilat (radial pu lses present), regular rate rhythm Respiratory/Chest: aerating well, no distress Abdomen: no chest wall deformity or tenderness Back/spine: Back: non-tender, no midline vertebral tend Pelvis: atraumatic, pelvis stable, no pelvic ten derness Extremities: no tenderness or deformity right AK A noted Neuro/CUSTODIAN MANAGER: alert, oriented X 3, no motor deficit s Skin: dry, normal temperature Results Findings/Data: Laboratory Tests 05/14 814 Chemistry Sodium (134 - 147 mEq/L) 138 Potassium (3.4 - 5.0 mEq/L) 4.1 Chloride (100 - 108 mEq/L) 105 Carbon Dioxide (21 - 33 mEq/l) 27 Anion Gap (0 - 20) 10 BUN (7 - 18 mg/dL) 23 H Creatinine (0.6 - 1.3 mg/dL) 3.0 H Glomerular Filtr Rate (70 - 80) 20.6 L Glucose (70 - 110 mg/dL) 89 Calcium (8.0 - 10.5 mg/dL) 8.5 Laboratory Tests 05/14 0815 Hematology WBC (4.5 - 11.0 x10 3/uL) 9.1 RBC (4.00 - 5.60 x10 6/uL) 2.80 L Hgb (12.5 - 16.9 g/dL) 8.2 L Hct (37.5 - 50.7 %) 26.2 L MCV (81.0 - 99.0 fL) 93.6 MCH (27.0 - 33.0 pg) 29.3 MCHC (33.0 - 37.0 g/dL) 31.3 L RDW (11.5 - 14.5 %) 15.6 H Plt Count (150 - 400 x10 3/uL) 265 MPV (7.0 - 9.0 fL) 9.1 H Neut % (Auto) (56.0 - 77.0 %) 70.1 Lymph % (Auto) (14.0 - 32.0 %) 11.2 L Dolores % (Auto) (4.8 - 9.0 %) 11.0 H Eos % (Auto) (0.3 - 3.7 %) 7.2 H Baso % (Auto) (0.0 - 2.0 %) 0.3 Neut # (Auto) (2.0 - 7.6 x10 3/uL) 6.38 Lymph # (Auto) (1.0 - 3.8 x10 3/uL) 1.02 Dolores # (Auto) (0.1 - 0.8 x10 3/uL) 1.00 H Eos # (Auto) (0.0 - 0.2 x10 3/uL) 0.66 H Baso # (Auto) (0.0 - 0.2 x10 3/uL) 0.03 Abs Immat Gran (auto) (0.00 - 0.03 x10 3/uL) 0. 02 Add Manual Diff NO Immature Gran % (0.0 - 2.0 %) 0.2 Nucleated RBC % (0 - 0 %) 0.0 Nucleated RBCs # (Man) (0.0 - 0.1 x10 3/uL) 0.0 0 Laboratory Tests 05/14 0845 Serology Hepatitis A IgM Ab (NON REACT. INDEX) NON REACT EMMANUEL Hep Bs Antigen (NonReactive INDEX) NON REACTIVE Hep B Core IgM Ab (NON REACT. INDEX) NON REACT EMMANUEL Hepatitis C Antibody (NON REACT. INDEX) NON FARSHAD CTIVE Results: labs reviewed, ramy l signs stable, current med profile rev'd, tertiary exam performed Free Text Obj Notes Free Text Obj Notes: Labs and images also reviewed personally. Diagnosis, Assessment Plan Free Text A P: Mechanism: Fall Injuries: SDH Active Problems: ESRD on HD Resolved Problems: n/a Incidental findings: n/a Chronic Medical Problems: CAD, ESRD on HD, dysli pidemia DVT prophylaxis: SCDs, hold lovenox for ICH GI prophylaxis: diet Lines/Be/ETT (placement dates: PIV Consultants: Neurosurg ([facility]), Nephrology Procedures: n/a Plan: Pt was seen and evaluated c Dr Hoffmann, who deter mined the POC As a result of this trauma consultation, pt was admitted to [facility] Subdural hematoma * Stable acute left parafalc ine subdural hematona extending into the L tentorium with minimum left to right midline shift also st able on repeat head CT 05/13 * Neurosurg consulted and ad vised to hold plavix for 72 hours (05/16) and hold ASA until same date * Maintain SBP <140 * Keppra x 7 days * Medically cleared for transfer to rehab facili ty * PT/OT ESRD on HD * chronic renal failure * nephrology consulted, HD continues Diet: Renal diet Labs: AM PT/OT recs: pending DME: recs pending Code status: Full code Medical Decision Making: In the event the patient is incapacitated and not able to make their own medical decisions, the y have elected [facility], contact number [phone], to make medical decisions f or them. Dispo: Case mgmt consulted Quality: Trauma Gen Surg Advanced Care Plan 65 or Older Discussed with: patient, Patient noting tonight that he wants to be DNR. We discussed what that means an d he is aware- he made that decision for his mother as well Discussion included: code status, surrog ate decision maker per him is a family friend named Marin Anderson VTE Prophylaxis - General VTE prophylaxis initiated: no pharmacologic, farshad son: (bleeding risk) Electronically Signed by Derick Clark on 05/01 at 1521 Addendum 1: 05/14/20 1524 by Derick Clark Stephanie U MD Tertiary trauma survey performed with no additio nal findings noted. Electronically Signed by Derick Clark on 05/01 at 1525 RPT #:[id number] END OF REPORT 2020-05-14 15:07:00-00:00 [facility] ([facility]) Trauma Progress Note REPORT#:[id number] REPORT STATUS: Signed DATE:05/14/20 TIME: 1507 PATIENT: DARIEN GROSSMAN UNIT #: [id number] ROOM/BED: [place] [address] : 45 AGE: 74 SEX: M ATTEND: Liliam Espino MD ADM AUTHOR: Derick Clark * ALL edits or amendments must be made on the C-Note/Above All Software document * See Addendum Derick Clark. 05/14/20 1507: Subjective Chief Complaint: generalized weakness HPI: no acute events overnight, no change in mental s tatus, repeat CT head stable Patient reports: Yes: feeling better, headache, pain controlled, resting comfortable. No: abdominal pain, bowel movement, chest pain, conf used, diarrhea, nausea, vomiting. Review of Systems Neuro: Reports: headache. Denies: change in LOC, confus ion, dizziness, lightheaded, slurred speech, syncope, vision change, weakness . Free Text ROS Notes Free Text ROS Notes: Review of systems: As above; otherwise, negativ e to include neurologic, eyes, ENT, CV, respiratory, GI, musculoskeletal, , skin, psychiatric, seven tologic, and allergy. Objective Physical Exam VS/I O: Vital Signs: Date Time Temp Pulse Resp B/P B/P Pulse O2 O2 F low FiO2 Mean Ox Delivery Rate 05/14 1227 97.5 72 16 179/75 109.6 98 Room air 05/14 0728 98.8 67 16 147/66 92.9 96 Room air 05/14 0318 98.4 60 16 127/63 84.6 96 Room air 05/13 2359 98.4 66 16 116/55 75.3 95 Room air 05/13 2301 59 18 110/56 80 95 05/13 2200 72 22 156/72 103 94 04/02 2130 76 14 162/71 102 95 05/13 2099 72 7 153/70 100 96 05/13 2029 73 12 163/72 103 96 05/14 1999 98.9 05/14 1999 71 18 157/71 102 96 05/13 1930 71 13 150/68 98 96 05/13 1900 69 13 147/67 96 95 04/ 1600 98.1 75 21 134/65 88 98 Room air 0.0 24 hour I O ending at 0700: 05/14 0700 05/13 1900 Intake Total 100 650 Output Total 400 800 Balance -300 -150 Intake, Oral 100 650 Number 0 Bowel Movements Number Voids 3 Output, Urine 400 800 Patient 82.7 kg Weight Weight Bed scale Measurement Method PATIENT WEIGHT: Weight (lb): 182 Weight (oz): 5.16 Weight (kg): 82.700 Medications: Active Meds + DC'd Last 24 Hrs Epoetin Donny-epbx 4,000 UNIT TuThSa@2100 SUBQ Hydrocodone Bitart/Acetaminophen 1 TAB Q4H PRN P RN PO Venlafaxine HCl 75 MG DAILY PO Furosemide 40 MG DAILY PO Albumin Human 12.5 GM ASDIR PRN IV Heparin Sodium (Porcine) 3,000 UNIT ASDIR PRN DI ALYSIS Lidocaine HCl 0.5 ML ASDIR PRN I-DERMAL (CKD) Mannitol 12.5 GM ASDIR PRN IV Sodium Chloride 2,000 ML ASDIR PRN IV Sodium Chloride 5 ML ASDIR PRN IV Sodium Chloride 10 ML ASDIR PRN IV Sodium Chloride 250 ML ASDIR PRN IV Buspirone HCl 10 MG BEDTIME PO Gabapentin 300 MG BEDTIME PO Metoprolol Tartrate 25 MG BID PO Mupirocin 1 APPLIC BID NASAL Trazodone HCl 150 MG BEDTIME PO Zolpidem Tartrate 5 MG BEDTIME PRN PRN PO Hydrocodone Bitart/Acetaminophen 1 TAB Q6H PRN P RN PO (DC) Levetiracetam 500 MG Q12HR PO Polyethylene Glycol 17 GM DAILY PO Acetaminophen 650 MG Q6H PRN PRN PO Hydralazine HCl 10 MG Q6H PRN PRN IV Hydrocodone Bitart/Acetaminophen 1 TAB Q4H PRN P RN PO (DC) Morphine Sulfate 4 MG Q4H PRN PRN IV Ondansetron HCl 4 MG Q4H PRN PRN IV Tramadol HCl 50 MG Q4H PRN PRN PO (DC) Sodium Chloride 0 ASDIR PRN IV (DC) Head/Eyes: PERRL, EOMI, small hematoma p alpable at posterior occiput, abrasion to right temporal area noted as well ENT: atraumatic Neck: full range of motion, non-tender, trachea midline, no JVD C-Spine clearance: no midli ne tenderness, NI flexion w/o pain, NI extension w/ o pain Cardiovascular: BP/pulses equal bilat (radial pu lses present), regular rate rhythm Respiratory/Chest: aerating well, no distress Abdomen: no chest wall deformity or tenderness Back/spine: Back: non-tender, no midline vertebral tend Pelvis: atraumatic, pelvis stable, no pelvic ten derness Extremities: no tenderness or deformity right AK A noted Neuro/CUSTODIAN MANAGER: alert, oriented X 3, no motor deficit s Skin: dry, normal temperature Results Findings/Data: Laboratory Tests 05/14 0815 Chemistry Sodium (134 - 147 mEq/L) 138 Potassium (3.4 - 5.0 mEq/L) 4.1 Chloride (100 - 108 mEq/L) 105 Carbon Dioxide (21 - 33 mEq/l) 27 Anion Gap (0 - 20) 10 BUN (7 - 18 mg/dL) 23 H Creatinine (0.6 - 1.3 mg/dL) 3.0 H Glomerular Filtr Rate (70 - 80) 20.6 L Glucose (70 - 110 mg/dL) 89 Calcium (8.0 - 10.5 mg/dL) 8.5 Laboratory Tests 05/14 0815 Hematology WBC (4.5 - 11.0 x10 3/uL) 9.1 RBC (4.00 - 5.60 x10 6/uL) 2.80 L Hgb (12.5 - 16.9 g/dL) 8.2 L Hct (37.5 - 50.7 %) 26.2 L MCV (81.0 - 99.0 fL) 93.6 MCH (27.0 - 33.0 pg) 29.3 MCHC (33.0 - 37.0 g/dL) 31.3 L RDW (11.5 - 14.5 %) 15.6 H Plt Count (150 - 400 x10 3/uL) 265 MPV (7.0 - 9.0 fL) 9.1 H Neut % (Auto) (56.0 - 77.0 %) 70.1 Lymph % (Auto) (14.0 - 32.0 %) 11.2 L Dolores % (Auto) (4.8 - 9.0 %) 11.0 H Eos % (Auto) (0.3 - 3.7 %) 7.2 H Baso % (Auto) (0.0 - 2.0 %) 0.3 Neut # (Auto) (2.0 - 7.6 x10 3/uL) 6.38 Lymph # (Auto) (1.0 - 3.8 x10 3/uL) 1.02 Dolores # (Auto) (0.1 - 0.8 x10 3/uL) 1.00 H Eos # (Auto) (0.0 - 0.2 x10 3/uL) 0.66 H Baso # (Auto) (0.0 - 0.2 x10 3/uL) 0.03 Abs Immat Gran (auto) (0.00 - 0.03 x10 3/uL) 0. 02 Add Manual Diff NO Immature Gran % (0.0 - 2.0 %) 0.2 Nucleated RBC % (0 - 0 %) 0.0 Nucleated RBCs # (Man) (0.0 - 0.1 x10 3/uL) 0.0 0 Laboratory Tests 05/14 0845 Serology Hepatitis A IgM Ab (NON REACT. INDEX) NON REACT EMMANUEL Hep Bs Antigen (NonReactive INDEX) NON REACTIVE Hep B Core IgM Ab (NON REACT. INDEX) NON REACT EMMANUEL Hepatitis C Antibody (NON REACT. INDEX) NON FARSHAD CTIVE Results: labs reviewed, ramy l signs stable, current med profile rev'd, tertiary exam performed Free Text Obj Notes Free Text Obj Notes: Labs and images also reviewed personally. Diagnosis, Assessment Plan Free Text A P: Mechanism: Fall Injuries: SDH Active Problems: ESRD on HD Resolved Problems: n/a Incidental findings: n/a Chronic Medical Problems: CAD, ESRD on HD, dysli pidemia DVT prophylaxis: SCDs, hold lovenox for ICH GI prophylaxis: diet Lines/Be/ETT (placement dates: PIV Consultants: Neurosurg ([facility]), Nephrology Procedures: n/a Plan: Pt was seen and evaluated c Dr Hoffmann, who deter mined the POC As a result of this trauma consultation, pt was admitted [facility] Subdural hematoma * Stable acute left parafalc ine subdural hematona extending into the L tentorium with minimum left to right midline shift also st able on repeat head CT 05/13 * Neurosurg consulted and ad vised to hold plavix for 72 hours (05/16) and hold ASA until same date * Maintain SBP <140 * Keppra x 7 days * Medically cleared for transfer to rehab facili ty * PT/OT ESRD on HD * chronic renal failure * nephrology consulted, HD continues Diet: Renal diet Labs: AM PT/OT recs: pending DME: recs pending Code status: Full code Medical Decision Making: In the event the patient is incapacitated and not able to make their own medical decisions, the y have elected Marin Mixon, contact number [phone], to make medical decisions f or them. Dispo: Case mgmt consulted Quality: Trauma Gen Surg Advanced Care Plan 65 or Older Discussed with: patient, Patient noting tonight that he wants to be DNR. We discussed what that means an d he is aware- he made that decision for his mother as well Discussion included: code status, surrog ate decision maker per him is a family friend named Marin Anderson VTE Prophylaxis - General VTE prophylaxis initiated: no pharmacologic, farshad son: (bleeding risk) Tri Hoffmann 05/14/20 1939: Attestations Physician Attestation Agree w/findings plan: I discussed the case with the PA and agree with the findings and plan as documented in the PA's note. Patient is in dialysis Plan: Patient wishes to go to rehab here, will have CM review and aide with disposition to rehab PT/OT Labs reviewed. Pertinent imaging personally revi ewed. Discussed plan with other members of the [facility] are team. Tri Hoffmann MD Trauma/Acute Care Surgery Electronically Signed by Derick Clark on 05/01 at 1521 Addendum 1: 05/14/20 1524 by Derick Clark Stephanie U MD Tertiary trauma survey performed with no additio nal findings noted. Electronically Signed by Derick Clark on 05/01 at 0813 RPT #:[id number] END OF REPORT 2020-05-14 15:07:00-00:00 [facility] ([facility]) Trauma Progress Note REPORT#:[id number] REPORT STATUS: Signed DATE:05/14/20 TIME: 1507 PATIENT: DARIEN GROSSMAN UNIT #: [id number] ROOM/BED: [place] [address] : 45 AGE: 74 SEX: M ATTEND: Liliam Espino MD ADM AUTHOR: Derick Clark * ALL edits or amendments must be made on the C-Note/Above All Software document * See Addendum Derick Clark. 05/14/20 1507: Subjective Chief Complaint: generalized weakness HPI: no acute events overnight, no change in mental s tatus, repeat CT head stable Patient reports: Yes: feeling better, headache, pain controlled, resting comfortable. No: abdominal pain, bowel movement, chest pain, conf used, diarrhea, nausea, vomiting. Review of Systems Neuro: Reports: headache. Denies: change in LOC, confus ion, dizziness, lightheaded, slurred speech, syncope, vision change, weakness . Free Text ROS Notes Free Text ROS Notes: Review of systems: As above; otherwise, negativ e to include neurologic, eyes, ENT, CV, respiratory, GI, musculoskeletal, , skin, psychiatric, seven tologic, and allergy. Objective Physical Exam VS/I O: Vital Signs: Date Time Temp Pulse Resp B/P B/P Pulse O2 O2 F low FiO2 Mean Ox Delivery Rate 05/14 1227 97.5 72 16 179/75 109.6 98 Room air 05/14 0728 98.8 67 16 147/66 92.9 96 Room air 05/14 0318 98.4 60 16 127/63 84.6 96 Room air 05/13 2359 98.4 66 16 116/55 75.3 95 Room air 05/13 2301 59 18 110/56 80 95 05/13 2200 72 22 156/72 103 94 05/13 2130 76 14 162/71 102 95 05/13 2100 72 7 153/70 100 96 05/13 2029 73 12 163/72 103 96 05/14 1999 98.9 05/14 1999 71 18 157/71 102 96 05/13 1930 71 13 150/68 98 96 05/13 1900 69 13 147/67 96 95 05/13 1600 98.1 75 21 134/65 88 98 Room air 0. 0 24 hour I O ending at 0700: 05/14 0700 05/13 1900 Intake Total 100 650 Output Total 400 800 Balance -300 -150 Intake, Oral 100 650 Number 0 Bowel Movements Number Voids 3 Output, Urine 400 800 Patient 82.7 kg Weight Weight Bed scale Measurement Method PATIENT WEIGHT: Weight (lb): 182 Weight (oz): 5.16 Weight (kg): 82.700 Medications: Active Meds + DC'd Last 24 Hrs Epoetin Donny-epbx 4,000 UNIT TuThSa@2100 SUBQ Hydrocodone Bitart/Acetaminophen 1 TAB Q4H PRN P RN PO Venlafaxine HCl 75 MG DAILY PO Furosemide 40 MG DAILY PO Albumin Human 12.5 GM ASDIR PRN IV Heparin Sodium (Porcine) 3,000 UNIT ASDIR PRN D IALYSIS Lidocaine HCl 0.5 ML ASDIR PRN I-DERMAL (CKD) Mannitol 12.5 GM ASDIR PRN IV Sodium Chloride 2,000 ML ASDIR PRN IV Sodium Chloride 5 ML ASDIR PRN IV Sodium Chloride 10 ML ASDIR PRN IV Sodium Chloride 250 ML ASDIR PRN IV Buspirone HCl 10 MG BEDTIME PO Gabapentin 300 MG BEDTIME PO Metoprolol Tartrate 25 MG BID PO Mupirocin 1 APPLIC BID NASAL Trazodone HCl 150 MG BEDTIME PO Zolpidem Tartrate 5 MG BEDTIME PRN PRN PO Hydrocodone Bitart/Acetaminophen 1 TAB Q6H PRN P RN PO (DC) Levetiracetam 500 MG Q12HR PO Polyethylene Glycol 17 GM DAILY PO Acetaminophen 650 MG Q6H PRN PRN PO Hydralazine HCl 10 MG Q6H PRN PRN IV Hydrocodone Bitart/Acetaminophen 1 TAB Q4H PRN P RN PO (DC) Morphine Sulfate 4 MG Q4H PRN PRN IV Ondansetron HCl 4 MG Q4H PRN PRN IV Tramadol HCl 50 MG Q4H PRN PRN PO (DC) Sodium Chloride 0 ASDIR PRN IV (DC) Head/Eyes: PERRL, EOMI, small hematoma p alpable at posterior occiput, abrasion to right temporal area noted as well ENT: atraumatic Neck: full range of motion, non-tender, trachea midline, no JVD C-Spine clearance: no midli ne tenderness, NI flexion w/o pain, NI extension w/ o pain Cardiovascular: BP/pulses equal bilat (radial pu lses present), regular rate rhythm Respiratory/Chest: aerating well, no distress Abdomen: no chest wall deformity or tenderness Back/spine: Back: non-tender, no midline vertebral tend Pelvis: atraumatic, pelvis stable, no pelvic ten derness Extremities: no tenderness or deformity right AK A noted Neuro/CUSTODIAN MANAGER: alert, oriented X 3, no motor deficit s Skin: dry, normal temperature Results Findings/Data: Laboratory Tests 05/14 814 Chemistry Sodium (134 - 147 mEq/L) 138 Potassium (3.4 - 5.0 mEq/L) 4.1 Chloride (100 - 108 mEq/L) 105 Carbon Dioxide (21 - 33 mEq/l) 27 Anion Gap (0 - 20) 10 BUN (7 - 18 mg/dL) 23 H Creatinine (0.6 - 1.3 mg/dL) 3.0 H Glomerular Filtr Rate (70 - 80) 20.6 L Glucose (70 - 110 mg/dL) 89 Calcium (8.0 - 10.5 mg/dL) 8.5 Laboratory Tests 05/14 814 Hematology WBC (4.5 - 11.0 x10 3/uL) 9.1 RBC (4.00 - 5.60 x10 6/uL) 2.80 L Hgb (12.5 - 16.9 g/dL) 8.2 L Hct (37.5 - 50.7 %) 26.2 L MCV (81.0 - 99.0 fL) 93.6 MCH (27.0 - 33.0 pg) 29.3 MCHC (33.0 - 37.0 g/dL) 31.3 L RDW (11.5 - 14.5 %) 15.6 H Plt Count (150 - 400 x10 3/uL) 265 MPV (7.0 - 9.0 fL) 9.1 H Neut % (Auto) (56.0 - 77.0 %) 70.1 Lymph % (Auto) (14.0 - 32.0 %) 11.2 L Dolores % (Auto) (4.8 - 9.0 %) 11.0 H Eos % (Auto) (0.3 - 3.7 %) 7.2 H Baso % (Auto) (0.0 - 2.0 %) 0.3 Neut # (Auto) (2.0 - 7.6 x10 3/uL) 6.38 Lymph # (Auto) (1.0 - 3.8 x10 3/uL) 1.02 Dolores # (Auto) (0.1 - 0.8 x10 3/uL) 1.00 H Eos # (Auto) (0.0 - 0.2 x10 3/uL) 0.66 H Baso # (Auto) (0.0 - 0.2 x10 3/uL) 0.03 Abs Immat Gran (auto) (0.00 - 0.03 x10 3/uL) 0. 02 Add Manual Diff NO Immature Gran % (0.0 - 2.0 %) 0.2 Nucleated RBC % (0 - 0 %) 0.0 Nucleated RBCs # (Man) (0.0 - 0.1 x10 3/uL) 0.0 0 Laboratory Tests 05/14 0845 Serology Hepatitis A IgM Ab (NON REACT. INDEX) NON REACT EMMANUEL Hep Bs Antigen (NonReactive INDEX) NON REACTIVE Hep B Core IgM Ab (NON REACT. INDEX) NON REACTI VE Hepatitis C Antibody (NON REACT. INDEX) NON FARSHAD CTIVE Results: labs reviewed, ramy l signs stable, current med profile rev'd, tertiary exam performed Free Text Obj Notes Free Text Obj Notes: Labs and images also reviewed personally. Diagnosis, Assessment Plan Free Text A P: Mechanism: Fall Injuries: SDH Active Problems: ESRD on HD Resolved Problems: n/a Incidental findings: n/a Chronic Medical Problems: CAD, ESRD on HD, dysli pidemia DVT prophylaxis: SCDs, hold lovenox for ICH GI prophylaxis: diet Lines/Be/ETT (placement dates: PIV Consultants: Neurosurg (Denny), Nephrology Procedures: n/a Plan: Pt was seen and evaluated c Dr Hoffmann, who deter mined the POC As a result of this trauma consultation, pt was admitted to [facility] Subdural hematoma * Stable acute left parafalc ine subdural hematona extending into the L tentorium with minimum left to right midline shift also st able on repeat head CT 05/13 * Neurosurg consulted and ad vised to hold plavix for 72 hours (05/16) and hold ASA until same date * Maintain SBP <140 * Keppra x 7 days * Medically cleared for transfer to rehab facili ty * PT/OT ESRD on HD * chronic renal failure * nephrology consulted, HD continues Diet: Renal diet Labs: AM PT/OT recs: pending DME: recs pending Code status: Full code Medical Decision Making: In the event the patient is incapacitated and not able to make their own medical decisions, the y have elected Marin Oral, contact number [phone], to make medical decisions f or them. Dispo: Case mgmt consulted Quality: Trauma Gen Surg Advanced Care Plan 65 or Older Discussed with: patient, Patient noting tonight that he wants to be DNR. We discussed what that means an d he is aware- he made that decision for his mother as well Discussion included: code status, surrog ate decision maker per him is a family friend named Marin Anderson VTE Prophylaxis - General VTE prophylaxis initiated: no pharmacologic, farshad son: (bleeding risk) Tri Hoffmann 05/14/20 1939: Attestations Physician Attestation Agree w/findings plan: I discussed the case with the PA and agree with the findings and plan as documented in the PA's note. Patient is in dialysis Plan: Patient wishes to go to rehab here, will have CM review and aide with disposition to rehab PT/OT Labs reviewed. Pertinent imaging personally revi ewed. Discussed plan with other members of the [facility] are team. Tri Hoffmann MD Trauma/Acute Care Surgery Electronically Signed by Derick Clark on 05/01 at 1521 Electronically Signed by Tri Hoffmann MD 05/14/20 at 1941 Addendum 1: 05/14/20 1524 by Derick Clark Tertiary trauma survey performed with no additio nal findings noted. Electronically Signed by Derick Clark on 05/01 at 1525 Electronically Signed by Tri Hoffmann MD 05/14/20 at 1941 RPT #:[id number] END OF REPORT 2020-05-14 12:21:00-00:00 HCACL [facility] Nephrology Progress Note REPORT#:[id number] REPORT STATUS: Signed DATE:05/14/20 TIME: 1221 PATIENT: DARIEN GROSSMAN UNIT #: [id number] ROOM/BED: [place] [address] : 45 AGE: 74 SEX: M ATTEND: Liliam Espino MD ADM AUTHOR: Anders Quick MD * ALL edits or amendments must be made on the C-Note/computer document * Subjective Chief Complaint: Patient with ESRD admitted with a fall. Doing we ll. Had HD today. Tolerated well. Objective General VS/I O: Vital Signs: Date Time Temp Pulse Resp B/P B/P Pulse O2 O2 F low FiO2 Mean Ox Delivery Rate 05/14 0728 37.1 67 16 147/66 92.9 96 Room air 05/14 0318 36.9 60 16 127/63 84.6 96 Room air 05/13 2359 36.9 66 16 116/55 75.3 95 Room air 05/13 2301 59 18 110/56 80 95 05/13 2200 72 22 156/72 103 94 05/13 2130 76 14 162/71 102 95 / 2100 72 7 153/70 100 96 / 2030 73 12 163/72 103 96 / 2000 37.2 05/14 1999 71 18 157/71 102 96 / 1930 71 13 150/68 98 96 05/13 1900 69 13 147/67 96 95 / 1600 36.7 75 21 134/65 88 98 Room air 0.0 24 hour I O ending at 0700: 05/14 0700 05/13 1900 Intake Total 100 650 Output Total 400 800 Balance -300 -150 Intake, Oral 100 650 Number 0 Bowel Movements Number Voids 3 Output, Urine 400 800 Patient 82.7 kg Weight Weight Bed scale Measurement Method PATIENT WEIGHT: Weight (lb): 182 Weight (oz): 5.16 Weight (kg): 82.700 Medications Active Meds + DC'd Last 24 Hrs Epoetin Donny-epbx 4,000 UNIT TuThSa@2100 SUBQ Furosemide 40 MG DAILY PO Albumin Human 12.5 GM ASDIR PRN IV Heparin Sodium (Porcine) 3,000 UNIT ASDIR PRN DI ALYSIS Lidocaine HCl 0.5 ML ASDIR PRN I-DERMAL (CKD) Mannitol 12.5 GM ASDIR PRN IV Sodium Chloride 2,000 ML ASDIR PRN IV Sodium Chloride 5 ML ASDIR PRN IV Sodium Chloride 10 ML ASDIR PRN IV Sodium Chloride 250 ML ASDIR PRN IV Buspirone HCl 10 MG BEDTIME PO Gabapentin 300 MG BEDTIME PO Metoprolol Tartrate 25 MG BID PO Mupirocin 1 APPLIC BID NASAL Trazodone HCl 150 MG BEDTIME PO Zolpidem Tartrate 5 MG BEDTIME PRN PRN PO Hydrocodone Bitart/Acetaminophen 1 TAB Q6H PRN P RN PO Levetiracetam 500 MG Q12HR PO Polyethylene Glycol 17 GM DAILY PO Acetaminophen 650 MG Q6H PRN PRN PO Hydralazine HCl 10 MG Q6H PRN PRN IV Hydrocodone Bitart/Acetaminophen 1 TAB Q4H PRN P RN PO (DC) Morphine Sulfate 4 MG Q4H PRN PRN IV Ondansetron HCl 4 MG Q4H PRN PRN IV Tramadol HCl 50 MG Q4H PRN PRN PO (DC) Sodium Chloride 0 ASDIR PRN IV (DC) Nutrition assessment: The data set between the solid lines has been im ported from the dietitian's assessment. Any exceptions have been noted under Provider comments. BMI Calculated: 26.9 Nutrition related diagnosis: Nutrition diagnosis details: Nutrition problem: Nutrition etiology: Nutrition signs and symptoms: Nutrition prescription: Dietitian name: Assessment completed: Provider comments on imported dietitian assessme nt: Physical Exam General appearance: alert, awake, oriented Head/eyes: atraumatic, normocephalic Cardiovascular: normal heart sounds, regular rat e and rhythm Respiratory: clear to auscultation, normal breat h sounds Abdomen: non-tender, normal bowel sounds, soft Extremities: no edema, RT AKA Neuro/CUSTODIAN MANAGER: alert, oriented X 3, normal speech Hemodialysis access: Type: AV fistula Location: left forearm Results Findings/Data: Laboratory Tests 05/14 814 Chemistry Sodium (134 - 147 mEq/L) 138 Potassium (3.4 - 5.0 mEq/L) 4.1 Chloride (100 - 108 mEq/L) 105 Carbon Dioxide (21 - 33 mEq/l) 27 Anion Gap (0 - 20) 10 BUN (7 - 18 mg/dL) 23 H Creatinine (0.6 - 1.3 mg/dL) 3.0 H Glomerular Filtr Rate (70 - 80) 20.6 L Glucose (70 - 110 mg/dL) 89 Calcium (8.0 - 10.5 mg/dL) 8.5 Laboratory Tests 05/14 814 Hematology WBC (4.5 - 11.0 x10 3/uL) 9.1 RBC (4.00 - 5.60 x10 6/uL) 2.80 L Hgb (12.5 - 16.9 g/dL) 8.2 L Hct (37.5 - 50.7 %) 26.2 L MCV (81.0 - 99.0 fL) 93.6 MCH (27.0 - 33.0 pg) 29.3 MCHC (33.0 - 37.0 g/dL) 31.3 L RDW (11.5 - 14.5 %) 15.6 H Plt Count (150 - 400 x10 3/uL) 265 MPV (7.0 - 9.0 fL) 9.1 H Neut % (Auto) (56.0 - 77.0 %) 70.1 Lymph % (Auto) (14.0 - 32.0 %) 11.2 L Dolores % (Auto) (4.8 - 9.0 %) 11.0 H Eos % (Auto) (0.3 - 3.7 %) 7.2 H Baso % (Auto) (0.0 - 2.0 %) 0.3 Neut # (Auto) (2.0 - 7.6 x10 3/uL) 6.38 Lymph # (Auto) (1.0 - 3.8 x10 3/uL) 1.02 Dolores # (Auto) (0.1 - 0.8 x10 3/uL) 1.00 H Eos # (Auto) (0.0 - 0.2 x10 3/uL) 0.66 H Baso # (Auto) (0.0 - 0.2 x10 3/uL) 0.03 Abs Immat Gran (auto) (0.00 - 0.03 x10 3/uL) 0. 02 Add Manual Diff NO Immature Gran % (0.0 - 2.0 %) 0.2 Nucleated RBC % (0 - 0 %) 0.0 Nucleated RBCs # (Man) (0.0 - 0.1 x10 3/uL) 0.0 0 Laboratory Tests 05/14 08 Serology Hepatitis A IgM Ab (NON REACT. INDEX) NON REACT EMMANUEL Hep Bs Antigen (NonReactive INDEX) NON REACTIVE Hep B Core IgM Ab (NON REACT. INDEX) NON REACTI VE Hepatitis C Antibody (NON REACT. INDEX) NON FARSHAD CTIVE Diagnosis, Assessment Plan Free Text A P: 1. ESRD 2. Hyperkalemia 3. Hypertension 4. Status post fall and acute SDH 5. Anemia of chronic kidney disease 6. Coronary artery disease Plan -HD MWF as outpatient. Last dialysis was on . Potassium low and replaced. Due to short staffing HD is done today , will schedule him for dialysis to MWF from next week. -Blood pressure currently stable and home medica tions restarted with holding parameters -Renal diet -Hemoglobin has been low. Start Epogen 3 times w eekly -Phos has been stable -Neurosurgery follow-up. Blood thinners on hold. We will continue to follow. at 1428 RPT #:[id number] END OF REPORT 2020-05-13 15:13:00-00:00 [facility] REPORT#:[id number] REPORT STATUS: Signed DATE:05/13/20 TIME: 1512 PATIENT: DARIEN GROSSMAN UNIT #: [id number] ROOM/BED: [place] [address] : 45 AGE: 74 SEX: M ATTEND: Liliam Espino MD ADM AUTHOR: Merissa Dillon MD * ALL edits or amendments must be made on the C-Note/computer document * History of Present Illness Requesting clinician: Reason for consult: ESRD Chief complaint: s/p fall HPI: Patient is a very pleasant [age]-year-old man with history of ESRD, on hemodialysis Saturday in [facility], hypertension, hyperlipidemia, coronary artery disease status post stents, right knee ar 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 He was initially sent over to [facility] after he fell at the rehab. CT of the head sh owed left acute subdural hematoma and was sent over to [facility] for neurosurgical evaluatio n. He was seen by neurosurgery, and no surgical intervention recommended. Plavix is hel d and nephrology is now consulted for his maintenanc e hemodialysis. His last dialysis was on Saturday. K noted to be low and got r eplaced. He denies any shortness of breath, nausea, vomiting, headache, chest pain. No lower extremi ty edema noted. History - Adult longitudinal Past medical history: Reports: Coronary artery disease ( and stents 4 years ago). Additional medical history: ESRD, high cholesterol Additional surgical history: recent right AKA, previous right knee replacemen t complicated by infection Family history: Denies: CAD < 40 yrs old, Coagulopathy. Additional family history: he has a daughter and 2 sons but states they are not his surrogate decision makers. A family friend named Marin Anderson is the person he is currently designating Alcohol use: Denies EtOH use Drug use: Denies recreational drugs Smoking status: Smoking status for patients 13 years old or old er: Never Smoker Allergies: Coded Allergies: shellfish derived (Severe, SWELLING 05/13/20) Iodine and Iodide Containing Produc (Mild, DIARR HEA 05/13/20) Uncoded Allergies: PINICILLIN (Mild, ITCHING 05/13/20) Ambulatory status: Walker Objective General VS/I O: Vital Signs: Date Time Temp Pulse Resp B/P B/P Pulse O2 O2 F low FiO2 Mean Ox Delivery Rate 05/13 2359 98.4 66 16 116/55 75.3 95 Room air 04/02 1600 98.1 75 21 134/65 88 98 Room air 0.0 04/02 1200 98.1 63 17 113/55 74 97 Room air 0.0 98 04/02 0800 97.6 71 29 147/66 93 98 Room air 0.0 04/02 0600 64 16 144/64 92 96 04/ 0530 68 11 151/69 99 96 04/ 0515 98.1 04/ 0226 74 17 151/74 99 98 04/ 0122 99.1 78 17 163/72 102 96 Room air 24 hour I O ending at 0700: 05/14 0700 04/ 1900 Intake Total 650 Output Total 800 Balance -150 Intake, Oral 650 Number 0 Bowel Movements Number Voids 3 Output, Urine 800 Patient 82.7 kg Weight Weight Bed scale Measurement Method PATIENT WEIGHT: Weight (lb): 182 Weight (oz): 5.16 Weight (kg): 82.700 Medications: Active Meds + DC'd Last 24 Hrs Furosemide 40 MG DAILY PO Buspirone HCl 10 MG BEDTIME PO Gabapentin 300 MG BEDTIME PO Metoprolol Tartrate 25 MG BID PO Mupirocin 1 APPLIC BID NASAL Trazodone HCl 150 MG BEDTIME PO Zolpidem Tartrate 5 MG BEDTIME PRN PRN PO Hydrocodone Bitart/Acetaminophen 1 TAB Q6H PRN P RN PO Potassium Chloride 40 MEQ ONCE ONE PO (DC) Levetiracetam 500 MG Q12HR PO Polyethylene Glycol 17 GM DAILY PO Acetaminophen 650 MG Q6H PRN PRN PO Hydralazine HCl 10 MG Q6H PRN PRN IV Hydrocodone Bitart/Acetaminophen 1 TAB Q4H PRN P RN PO (DC) Morphine Sulfate 4 MG Q4H PRN PRN IV Ondansetron HCl 4 MG Q4H PRN PRN IV Sodium Chloride 1,000 ML .[id number] IV (DC) Tramadol HCl 50 MG Q4H PRN PRN PO (DC) Sodium Chloride 0 ASDIR PRN IV (DC) Physical Exam General appearance: alert, awake Head/eyes: atraumatic, normocephalic Cardiovascular: normal heart sounds, regular rat e and rhythm Respiratory: clear to auscultation, normal breat h sounds Abdomen: non-tender, normal bowel sounds, soft Extremities: no edema, RT AKA Neuro/CUSTODIAN MANAGER: alert, oriented X 3, normal speech Hemodialysis access: Type: AV fistula Location: left forearm Results Findings/Data: Laboratory Tests 05/13 Chemistry Sodium (134 - 147 mEq/L) 137 139 Potassium (3.4 - 5.0 mEq/L) 3.2 L 3.8 Chloride (100 - 108 mEq/L) 102 103 Carbon Dioxide (21 - 33 mEq/l) 28 30 Anion Gap (0 - 20) 10 10 BUN (7 - 18 mg/dL) 23 H 25 H Creatinine (0.6 - 1.3 mg/dL) 2.7 H 2.8 H Glomerular Filtr Rate (70 - 80) 23.2 L 22.3 L Glucose (70 - 110 mg/dL) 87 96 Calcium (8.0 - 10.5 mg/dL) 8.5 8.5 Phosphorus (2.5 - 4.9 MG/DL) 3.0 Magnesium (1.80 - 2.40 mg/dL) 1.81 Total Bilirubin (0.0 - 1.0 mg/dL) 0.40 Direct Bilirubin (0.0 - 0.30 MG/DL) 0.10 Indirect Bilirubin (MG/DL) 0.30 AST (15 - 37 IUnit/L) 17 ALT (30 - 65 IUnit/L) 13 L Total Alk Phosphatase (20 - 125 IUnit/L) 112 Total Protein (6.4 - 8.2 g/dL) 6.2 L Albumin (3.4 - 5.0 g/dL) 3.20 L 3.30 L Lipase (13 - 57 U/L) 185 H Laboratory Tests 05/14 135 Coagulation INR (0.8 - 1.2) 1.2 PTT (Vidal) (25.0 - 39.5 Seconds) 31.8 PT Patient/Control Mix (9.3 - 12.9 SECONDS) 12. 8 Laboratory Tests 05/13 Hematology WBC (4.5 - 11.0 x10 3/uL) 9.8 9.2 RBC (4.00 - 5.60 x10 6/uL) 2.72 L 2.74 L Hgb (12.5 - 16.9 g/dL) 8.2 L 8.2 L Hct (37.5 - 50.7 %) 25.6 L 26.3 L MCV (81.0 - 99.0 fL) 94.1 96.0 MCH (27.0 - 33.0 pg) 30.1 29.9 MCHC (33.0 - 37.0 g/dL) 32.0 L 31.2 L RDW (11.5 - 14.5 %) 15.2 H 15.2 H Plt Count (150 - 400 x10 3/uL) 244 243 MPV (7.0 - 9.0 fL) 9.1 H 8.9 Neut % (Auto) (56.0 - 77.0 %) 72.4 72.5 Lymph % (Auto) (14.0 - 32.0 %) 9.1 L 11.0 L Dolores % (Auto) (4.8 - 9.0 %) 11.0 H 10.4 H Eos % (Auto) (0.3 - 3.7 %) 6.8 H 5.3 H Baso % (Auto) (0.0 - 2.0 %) 0.3 0.3 Neut # (Auto) (2.0 - 7.6 x10 3/uL) 7.06 6.68 Lymph # (Auto) (1.0 - 3.8 x10 3/uL) 0.89 L 1.01 Dolores # (Auto) (0.1 - 0.8 x10 3/uL) 1.07 H 0.96 H Eos # (Auto) (0.0 - 0.2 x10 3/uL) 0.66 H 0.49 H Baso # (Auto) (0.0 - 0.2 x10 3/uL) 0.03 0.03 Abs Immat Gran (auto) (0.00 - 0.03 x10 3/uL) 0. 04 H 0.05 H Add Manual Diff NO NO Immature Gran % (0.0 - 2.0 %) 0.4 0.5 Nucleated RBC % (0 - 0 %) 0.0 0.0 Nucleated RBCs # (Man) (0.0 - 0.1 x10 3/uL) 0.0 0 0.00 Laboratory Tests 05/14 247 Serology SARS-CoV-2 Ag (Rapid) (Negative) Negative Laboratory Tests 05/14 135 Toxicology Ethyl Alcohol (<10 mg/dL) < 3.0 Radiology data: Recent Impressions: CAT SCAN - CT HEAD/BRAIN W/O CONT 05/134 Report Impression - Status: SIGNED Entered: 05/13/2020 0432 IMPRESSION: Mild diffuse age-appropriate atrophy is present associated with mild to moderate nonspecific periventricular low atte nuation most consistent with 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 Stable acute left parafalcine subdural hematoma extending into the left tentorium. Minimal left to right midline sh ift is stable. SL: TPAINTER-H Impression By: [email or web address] - Anoop Mays M.D. Diagnosis, Assessment Plan Free Text DxA P Notes Free text DxA P notes: 1. ESRD 2. Hyperkalemia 3. Hypertension 4. Status post fall and acute SDH 5. Anemia of chronic kidney disease 6. Coronary artery disease Plan -HD MWF as outpatient. Last dialysis was on . Potassium low and replaced. Due to short staffing today, w dominic schedule him for dialysis tomorrow for this week. We will switch him to MWF from [place] xt week. -Blood pressure currently stable and home medica tions restarted with holding parameters -Renal diet -Hemoglobin has been low. Start Epogen 3 times w eekly -Phos has been stable -Neurosurgery follow-up. Blood thinners on hold. We will follow-up Thank you for the consult Dr. Espino. at 0039 RPT #:[id number] END OF REPORT 2020-05-13 10:14:00-00:00 [facility] Neurosurgical Consultation REPORT#:[id number] REPORT STATUS: Signed DATE:05/13/20 TIME: 1014 PATIENT: DARIEN GROSSMAN UNIT #: [id number] ROOM/BED: [place] [address] : 45 AGE: 74 SEX: M ATTEND: Liliam Espino MD ADM AUTHOR: Malu Jones MONOGRAM MAKER * ALL edits or amendments must be made on the C-Note/computer document * Malu Jones 05/13/20 1014: History of Present Illness Time At Bedside )( Time at bedside: 0835 Requesting clinician: Fausto Espino MD Reason for consult: SDH Chief complaint: intermittent confusion HPI: This is a 74 year old male ( 5 feet 9 in, 195 lbs) with a PMH of CAD with stents (on Plavix), ESRD on HD, dys lipidemia, right AKA (Mar 2020) who presented to the ER from [facility] s/p fall three days ago with C T head revealing SDH. Patient states he has "intermittent memory loss" and steele s not remember the events surrounding the fall but does state he has falle n four times related to ambulation. CT head with acute left parafalcine SDH and NSGY was consulted. Patient alert, oriented, FC. No pronator drift n oted. History - Adult longitudinal Past medical history: Reports: Coronary artery disease ( and stents 4 years ago). Additional medical history: ESRD, high cholesterol Additional surgical history: recent right AKA, previous right knee replacemen t complicated by infection Additional family history: he has a daughter and 2 sons but states they are not his surrogate decision makers. A family friend named Marin Anderson is the person he is currently designating Alcohol use: Denies EtOH use Drug use: Denies recreational drugs Smoking status: Smoking status for patients 13 years old or old er: Never Smoker Ambulatory status: Walker Review of Systems ROS Constitutional: Denies chills, Denies fatigue Skin: Denies: abrasion, bruising. Eyes: Denies: visual loss/blurred, diplopia. ENT: Denies: nasal congestion, sore throat. Respiratory: Denies: SOB, wheezing. Cardiovascular: Denies: chest pain, palpitations. GI: Denies: nausea, vomiting. Musculoskeletal: Reports: extremity pain (RLE). Denies: extremity swelling. Neuro: Reports: confusion, gait problem. Denies: dizzin ess, lightheaded, weakness. Objective VS/I O: Last Documented: Result Date Time Pulse Ox 96 05/13 0600 B/P 144/64 05/13 0600 B/P Mean 92 05/13 0600 Pulse 64 05/13 0600 Resp 16 05/13 0600 Temp 98.1 05/13 0515 O2 Delivery Room air 05/13 0122 24 hour I O ending at 0700: 05/13 0700 05/12 1900 Intake Total Output Total Balance Patient 87.7 kg Weight Weight Bed scale Measurement Method PATIENT WEIGHT: Weight (lb): Weight (oz): Weight (kg): 87.700 General appearance: alert, awake, oriented, no a cute distress Head/Eyes: atraumatic, EOMI, normocephalic ENT: normal nose, dry mucosal membrane Neck: full range of motion, non-tender Cardiovascular: regular rate rhythm, normal hear t sounds Respiratory: no distress, symmetric expansion Abdomen: soft, no distention Extremities: moves all, right AKA Neuro/CUSTODIAN MANAGER: alert, oriented X 3, EOMI, PERRL, no motor deficits, no sensory deficits, no pronator drift Speech Speech: normal Mental Status Orientation: Yes: to time, to place, to person, to situation. LOC: alert Cognitive Function Cognitive function: poor recall Results Findings/Data: Laboratory Tests: 05/13 05/13 05/13 0615 0248 0136 Chemistry Sodium (134 - 147 mEq/L) 137 139 Potassium (3.4 - 5.0 mEq/L) 3.2 L 3.8 Chloride (100 - 108 mEq/L) 102 103 Carbon Dioxide (21 - 33 mEq/l) 28 30 Anion Gap (0 - 20) 10 10 BUN (7 - 18 mg/dL) 23 H 25 H Creatinine (0.6 - 1.3 mg/dL) 2.7 H 2.8 H Glomerular Filtr Rate (70 - 80) 23.2 L 22.3 L Glucose (70 - 110 mg/dL) 87 96 Calcium (8.0 - 10.5 mg/dL) 8.5 8.5 Phosphorus (2.5 - 4.9 MG/DL) 3.0 Magnesium (1.80 - 2.40 mg/dL) 1.81 Total Bilirubin (0.0 - 1.0 mg/dL) 0.40 Direct Bilirubin (0.0 - 0.30 MG/DL) 0.10 Indirect Bilirubin (MG/DL) 0.30 AST (15 - 37 IUnit/L) 17 ALT (30 - 65 IUnit/L) 13 L Total Alk Phosphatase (20 - 125 IUnit/L) 112 Total Protein (6.4 - 8.2 g/dL) 6.2 L Albumin (3.4 - 5.0 g/dL) 3.20 L 3.30 L Lipase (13 - 57 U/L) 185 H Coagulation INR (0.8 - 1.2) 1.2 PTT (Traill) (25.0 - 39.5 Seconds) 31.8 PT Patient/Control Mix (9.3 - 12.9 SECONDS) 12. 8 Hematology WBC (4.5 - 11.0 x10 3/uL) 9.8 9.2 RBC (4.00 - 5.60 x10 6/uL) 2.72 L 2.74 L Hgb (12.5 - 16.9 g/dL) 8.2 L 8.2 L Hct (37.5 - 50.7 %) 25.6 L 26.3 L MCV (81.0 - 99.0 fL) 94.1 96.0 MCH (27.0 - 33.0 pg) 30.1 29.9 MCHC (33.0 - 37.0 g/dL) 32.0 L 31.2 L RDW (11.5 - 14.5 %) 15.2 H 15.2 H Plt Count (150 - 400 x10 3/uL) 244 243 MPV (7.0 - 9.0 fL) 9.1 H 8.9 Neut % (Auto) (56.0 - 77.0 %) 72.4 72.5 Lymph % (Auto) (14.0 - 32.0 %) 9.1 L 11.0 L Dolores % (Auto) (4.8 - 9.0 %) 11.0 H 10.4 H Eos % (Auto) (0.3 - 3.7 %) 6.8 H 5.3 H Baso % (Auto) (0.0 - 2.0 %) 0.3 0.3 Neut # (Auto) (2.0 - 7.6 x10 3/uL) 7.06 6.68 Lymph # (Auto) (1.0 - 3.8 x10 3/uL) 0.89 L 1.01 Dolores # (Auto) (0.1 - 0.8 x10 3/uL) 1.07 H 0.96 H Eos # (Auto) (0.0 - 0.2 x10 3/uL) 0.66 H 0.49 H Baso # (Auto) (0.0 - 0.2 x10 3/uL) 0.03 0.03 Abs Immat Gran (auto) (0.00 - 0.03 x10 3/uL) 0. 04 H 0.05 H Add Manual Diff NO NO Immature Gran % (0.0 - 2.0 %) 0.4 0.5 Nucleated RBC % (0 - 0 %) 0.0 0.0 Nucleated RBCs # (Man) (0.0 - 0.1 x10 3/uL) 0.0 0 0.00 Serology SARS-CoV-2 Ag (Rapid) (Negative) Negative Toxicology Ethyl Alcohol (<10 mg/dL) < 3.0 Microbiology: Date/Time Procedure - Status Source Growth 05/13 614 MRSA DNA Surveillance Screen - RECD NASAL Recent Impressions: CAT SCAN - CT HEAD/BRAIN W/O CONT 05/13 413 Report Impression - Status: SIGNED Entered: 05/13/2020431 IMPRESSION: Mild diffuse age-appropriate atrophy is present associated with mild to moderate nonspecific periventricular low atte nuation most consistent with 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 Stable acute left parafalcine subdural hematoma extending into the left tentorium. Minimal left to right midline sh ift is stable. SL: TPAINTER-H Impression By: Nick Mays M.D. 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 Stable acute left parafalcine subdural hematoma extending into the left tentorium. Minimal left to right midline sh ift is stable. SL: TPAINTER-H Impression By: Nick Mays M.D. Modified [place] Scale Modified [place] Scale Prior Modified [place] Scale: Prior Modified [place] Scale: Response Value Prior Modified [place] Scale Moderate disability 3 Total 3 Scores Gakona Gakona Coma Score: Copyright Sir Lucien Pratt Copyright Sir Samina Pratt Eye opening: (4) Spontaneous Verbal response: (5) Oriented Best motor response: (6) Obeys commands Diagnosis, Assessment Plan Problem List/A P: 1. Fall 2. Subdural hematoma 3. End stage renal disease Free Text A P: Patient exam and imaging reviewed with Dr. Baldwin This is a 74 year old male ( 5 feet 9 in, 195 lbs) with a PMH of CAD with stents (on Plavix), ESRD on HD, dys lipidemia, right AKA (Mar 2020) who presented to the ER from [facility] s/p fall three days ag o. CT head with acute left parafalcine SDH and NSGY was consulted. F/u CT head stable No acute neurosurgical intervention Keep normotensive 100-140 Neuro checks q2h while in ICU Avoid hyponatremia, Na 137 today Keep Mg 1.8-2.4, Mg. 1.81 today Keppra x7days for seizure prophylaxis No antiplatelets/anticoagulants for now SCD to LLE Ok to restart Plavix in 72 hrs PT/OT NSGY signing off, please call for any neurologic al questions or concerns Abraham Baldwin 05/13/20 8471: History - Adult longitudinal Allergies: Coded Allergies: shellfish derived (Severe, SWELLING 05/13/20) Iodine and Iodide Containing Produc (Mild, DIARR HEA 05/13/20) Uncoded Allergies: PINICILLIN (Mild, ITCHING 05/13/20) Diagnosis, Assessment Plan Free Text A P: Agree with above, exam and i maging reviewed, stable small posterior falcine and left tentorial SDH on FU CT sca. OK to restart Plavix from Saturday (05/15/20). No further fu CT scan or fu wit h me is necessary unless there is significant neuro change. Electronically Signed by Abraham Baldwin MD on 04/03 at 1735 RPT #:[id number] END OF REPORT 2020-05-13 10:14:00-00:00 [facility] ([facility]) Neurosurgical Consultation REPORT#:[id number] REPORT STATUS: Signed DATE:05/13/20 TIME: 1014 PATIENT: DARIEN GROSSMAN UNIT #: [id number] ROOM/BED: [place] [address] : 45 AGE: 74 SEX: M ATTEND: Liliam Espino MD ADM AUTHOR: Malu Jones MONOGRAM MAKER * ALL edits or amendments must be made on the C-Note/computer document * Malu Jones 05/13/20 1014: History of Present Illness Time At Bedside )( Time at bedside: 0835 Requesting clinician: Fausto Espino MD Reason for consult: SDH Chief complaint: intermittent confusion HPI: This is a 74 year old male ( 5 feet 9 in, 195 lbs) with a PMH of CAD with stents (on Plavix), ESRD on HD, dys lipidemia, right AKA (Mar 2020) who presented to the ER from [facility] s/p fall three days ago with C T head revealing SDH. Patient states he has "intermittent memory loss" and steele s not remember the events surrounding the fall but does state he has falle n four times related to ambulation. CT head with acute left parafalcine SDH and NSGY was consulted. Patient alert, oriented, FC. No pronator drift n oted. History - Adult longitudinal Past medical history: Reports: Coronary artery disease ( and stents 4 years ago). Additional medical history: ESRD, high cholesterol Additional surgical history: recent right AKA, previous right knee replacemen t complicated by infection Additional family history: he has a daughter and 2 sons but states they are not his surrogate decision makers. A family friend named Marin Anderson is the person he is currently designating Alcohol use: Denies EtOH use Drug use: Denies recreational drugs Smoking status: Smoking status for patients 13 years old or old er: Never Smoker Ambulatory status: Walker Review of Systems ROS Constitutional: Denies chills, Denies fatigue Skin: Denies: abrasion, bruising. Eyes: Denies: visual loss/blurred, diplopia. ENT: Denies: nasal congestion, sore throat. Respiratory: Denies: SOB, wheezing. Cardiovascular: Denies: chest pain, palpitations. GI: Denies: nausea, vomiting. Musculoskeletal: Reports: extremity pain (RLE). Denies: extremity swelling. Neuro: Reports: confusion, gait problem. Denies: dizzin ess, lightheaded, weakness. Objective VS/I O: Last Documented: Result Date Time Pulse Ox 96 05/13 0600 B/P 144/64 05/13 0600 B/P Mean 92 / 0600 Pulse 64 05/13 0600 Resp 16 05/13 0600 Temp 98.1 05/13 0515 O2 Delivery Room air 05/13 0122 24 hour I O ending at 0700: 05/13 0700 05/12 1900 Intake Total Output Total Balance Patient 87.7 kg Weight Weight Bed scale Measurement Method PATIENT WEIGHT: Weight (lb): Weight (oz): Weight (kg): 87.700 General appearance: alert, awake, oriented, no a cute distress Head/Eyes: atraumatic, EOMI, normocephalic ENT: normal nose, dry mucosal membrane Neck: full range of motion, non-tender Cardiovascular: regular rate rhythm, normal hear t sounds Respiratory: no distress, symmetric expansion Abdomen: soft, no distention Extremities: moves all, right AKA Neuro/CUSTODIAN MANAGER: alert, oriented X 3, EOMI, PERRL, no motor deficits, no sensory deficits, no pronator drift Speech Speech: normal Mental Status Orientation: Yes: to time, to place, to person, to situation. LOC: alert Cognitive Function Cognitive function: poor recall Results Findings/Data: Laboratory Tests: 05/13 05/13 05/13 0615 0248 0136 Chemistry Sodium (134 - 147 mEq/L) 137 139 Potassium (3.4 - 5.0 mEq/L) 3.2 L 3.8 Chloride (100 - 108 mEq/L) 102 103 Carbon Dioxide (21 - 33 mEq/l) 28 30 Anion Gap (0 - 20) 10 10 BUN (7 - 18 mg/dL) 23 H 25 H Creatinine (0.6 - 1.3 mg/dL) 2.7 H 2.8 H Glomerular Filtr Rate (70 - 80) 23.2 L 22.3 L Glucose (70 - 110 mg/dL) 87 96 Calcium (8.0 - 10.5 mg/dL) 8.5 8.5 Phosphorus (2.5 - 4.9 MG/DL) 3.0 Magnesium (1.80 - 2.40 mg/dL) 1.81 Total Bilirubin (0.0 - 1.0 mg/dL) 0.40 Direct Bilirubin (0.0 - 0.30 MG/DL) 0.10 Indirect Bilirubin (MG/DL) 0.30 AST (15 - 37 IUnit/L) 17 ALT (30 - 65 IUnit/L) 13 L Total Alk Phosphatase (20 - 125 IUnit/L) 112 Total Protein (6.4 - 8.2 g/dL) 6.2 L Albumin (3.4 - 5.0 g/dL) 3.20 L 3.30 L Lipase (13 - 57 U/L) 185 H Coagulation INR (0.8 - 1.2) 1.2 PTT (Vidal) (25.0 - 39.5 Seconds) 31.8 PT Patient/Control Mix (9.3 - 12.9 SECONDS) 12. 8 Hematology WBC (4.5 - 11.0 x10 3/uL) 9.8 9.2 RBC (4.00 - 5.60 x10 6/uL) 2.72 L 2.74 L Hgb (12.5 - 16.9 g/dL) 8.2 L 8.2 L Hct (37.5 - 50.7 %) 25.6 L 26.3 L MCV (81.0 - 99.0 fL) 94.1 96.0 MCH (27.0 - 33.0 pg) 30.1 29.9 MCHC (33.0 - 37.0 g/dL) 32.0 L 31.2 L RDW (11.5 - 14.5 %) 15.2 H 15.2 H Plt Count (150 - 400 x10 3/uL) 244 243 MPV (7.0 - 9.0 fL) 9.1 H 8.9 Neut % (Auto) (56.0 - 77.0 %) 72.4 72.5 Lymph % (Auto) (14.0 - 32.0 %) 9.1 L 11.0 L Dolores % (Auto) (4.8 - 9.0 %) 11.0 H 10.4 H Eos % (Auto) (0.3 - 3.7 %) 6.8 H 5.3 H Baso % (Auto) (0.0 - 2.0 %) 0.3 0.3 Neut # (Auto) (2.0 - 7.6 x10 3/uL) 7.06 6.68 Lymph # (Auto) (1.0 - 3.8 x10 3/uL) 0.89 L 1.01 Dolores # (Auto) (0.1 - 0.8 x10 3/uL) 1.07 H 0.96 H Eos # (Auto) (0.0 - 0.2 x10 3/uL) 0.66 H 0.49 H Baso # (Auto) (0.0 - 0.2 x10 3/uL) 0.03 0.03 Abs Immat Gran (auto) (0.00 - 0.03 x10 3/uL) 0. 04 H 0.05 H Add Manual Diff NO NO Immature Gran % (0.0 - 2.0 %) 0.4 0.5 Nucleated RBC % (0 - 0 %) 0.0 0.0 Nucleated RBCs # (Man) (0.0 - 0.1 x10 3/uL) 0.0 0 0.00 Serology SARS-CoV-2 Ag (Rapid) (Negative) Negative Toxicology Ethyl Alcohol (<10 mg/dL) < 3.0 Microbiology: Date/Time Procedure - Status Source Growth 05/13 614 MRSA DNA Surveillance Screen - RECD NASAL Recent Impressions: CAT SCAN - CT HEAD/BRAIN W/O CONT 05/13 413 Report Impression - Status: SIGNED Entered: 05/13/2020431 IMPRESSION: Mild diffuse age-appropriate atrophy is present associated with mild to moderate nonspecific periventricular low atte nuation most consistent with 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 Stable acute left parafalcine subdural hematoma extending into the left tentorium. Minimal left to right midline sh ift is stable. SL: TPAINTER-H Impression By: Nick Mays M.D. 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 Stable acute left parafalcine subdural hematoma extending into the left tentorium. Minimal left to right midline sh ift is stable. SL: TPAINTER-H Impression By: Nick Mays M.D. Modified [place] Scale Modified Alice Scale Prior Modified Alice Scale: Prior Modified Alice Scale: Response Value Prior Modified [place] Scale Moderate disability 3 Total 3 Scores Micah Micah Coma Score: Copyright Sir Lucien Pratt Copyright Sir Samina Pratt Eye opening: (4) Spontaneous Verbal response: (5) Oriented Best motor response: (6) Obeys commands Diagnosis, Assessment Plan Problem List/A P: 1. Fall 2. Subdural hematoma 3. End stage renal disease Free Text A P: Patient exam and imaging reviewed with Dr. Baldwin This is a 74 year old male ( 5 feet 9 in, 195 lbs) with a PMH of CAD with stents (on Plavix), ESRD on HD, dys lipidemia, right AKA (Mar 2020) who presented to the ER from [facility] s/p fall three days ag o. CT head with acute left parafalcine SDH and NSGY was consulted. F/u CT head stable No acute neurosurgical intervention Keep normotensive 100-140 Neuro checks q2h while in ICU Avoid hyponatremia, Na 137 today Keep Mg 1.8-2.4, Mg. 1.81 today Keppra x7days for seizure prophylaxis No antiplatelets/anticoagulants for now SCD to LLE Ok to restart Plavix in 72 hrs PT/OT NSGY signing off, please call for any neurologic al questions or concerns Abraham Baldwin 05/13/20 1733: History - Adult longitudinal Allergies: Coded Allergies: shellfish derived (Severe, SWELLING 05/13/20) Iodine and Iodide Containing Produc (Mild, DIARR HEA 05/13/20) Uncoded Allergies: PINICILLIN (Mild, ITCHING 05/13/20) Diagnosis, Assessment Plan Free Text A P: Agree with above, exam and i maging reviewed, stable small posterior falcine and left tentorial SDH on FU CT sca. OK to restart Plavix from Saturday (05/15/20). No further fu CT scan or fu wit h me is necessary unless there is significant neuro change. Electronically Signed by Abraham Baldwin MD on 04/03 at 3718 Electronically Signed by Malu Jones NP on 0 05/14/20 at 1125 RPT #:[id number] END OF REPORT 2020-05-13 02:16:00-00:00 [facility] ([facility] Trauma - History Physical REPORT#:[id number] REPORT STATUS: Signed DATE:05/13/20 TIME: 215 PATIENT: DARIEN GROSSMAN UNIT #: [id number] ROOM/BED: : 45 AGE: 74 SEX: M ATTEND: Uzma Farnsworth und ADM DT: AUTHOR: Fausto Espino MD * ALL edits or amendments must be made on the el SeeSpaceronic/computer document * History of Present Illness Time At Bedside )( Time at bedside: 0155 Pre-hospital Activation level: none Arrival mode: transfer Mechanism of injury: Fall: same level, from bed HPI Chief complaint: tired HPI: 74-year male with history of CAD on Plavix, end- stage renal disease, dyslipidemia, presents as a transfer from [place]. Patient reports that he had a fall 2 days ago between 2 wooden posts of a [place], there was head strike, unclear loss of conscious. He had a CT head on that showed a 7 mm left parafalci ne subdural hematoma without shift or herniation. He also had a CT scan of his C- spine that did not show any fracture or subluxation. At time my evaluation patient denies any acute p ain. Denies any numbness or weakness. He just reports being tired. No headac he and he denies confusion. Patient is at [facility] due to a complication from a right kn ee arthroplasty. This was complicated by cellulitis and osteomyelitis that required a right AKA in F ruary of this year. CT scan was performed at 2214 yesterday. History Past medical history: Reports: Coronary artery disease ( and stents 4 years ago). Additional medical history: ESRD, high cholesterol Additional surgical history: recent right AKA, previous right knee replacemen t complicated by infection Family history: Denies: CAD < 40 yrs old, Coagulopathy. Additional family history: he has a daughter and 2 sons but states they are not his surrogate decision makers. A family friend named Marin Anderson is the person he is currently designating Alcohol use: Denies EtOH use Drug use: Denies recreational drugs Smoking status: Smoking status for patients 13 years old or old er: Never Smoker Medication/Allergy-Vaccine Hx Medications: list pending Allergies: Coded Allergies: No Known Allergies (05/13/20) Review of Systems All systems rev neg: except as marked Physical Exam VS/I O Last Documented: Result Date Time Pulse Ox 96 05/13 121 B/P 163/72 05/13 121 B/P Mean 102 05/13 121 O2 Delivery Room air 05/13 121 Temp 37.3 05/13 121 Pulse 78 05/13 012 Resp 17 05/13 121 24 hour I O ending at 0700: 05/13 0700 05/12 1900 Intake Total Output Total Balance Patient 87.7 kg Weight Weight Bed scale Measurement Method PATIENT WEIGHT: Weight (lb): Weight (oz): Weight (kg): 87.700 General appearance: alert, awake, no acute distr ess, conversational Head/Eyes: PERRL, EOMI, small hematoma p alpable at posterior occiput, abrasion to right temporal area noted as well ENT: atraumatic, normal pharynx Neck: full range of motion, non-tender, trachea midline, no JVD C-Spine clearance: no midli ne tenderness, NI flexion w/o pain, NI extension w/ o pain Cardiovascular: BP/pulses equal bilat (radial an d left DP palpable), regular rate rhythm Respiratory/chest: aerating well, no distress Abdomen: no chest wall deformity or tenderness Back/Spine: Back: non-tender, no midline vertebral tend Pelvis: atraumatic, pelvis stable, no pelvic ten derness Extremities: no tenderness or deformity right AK A noted Neuro/CUSTODIAN MANAGER: alert, oriented X 3, no motor deficit s Gak[place] Coma Score: Copyright Sir Lucien Pratt Copyright Sir Samina Pratt GCS Score: 15 Skin: dry, normal temperature Results Findings/Data: Laboratory Tests: 05/14 135 Chemistry Sodium (134 - 147 mEq/L) 139 Potassium (3.4 - 5.0 mEq/L) 3.8 Chloride (100 - 108 mEq/L) 103 Carbon Dioxide (21 - 33 mEq/l) 30 Anion Gap (0 - 20) 10 BUN (7 - 18 mg/dL) 25 H Creatinine (0.6 - 1.3 mg/dL) 2.8 H Glomerular Filtr Rate (70 - 80) 22.3 L Glucose (70 - 110 mg/dL) 96 Calcium (8.0 - 10.5 mg/dL) 8.5 Total Bilirubin (0.0 - 1.0 mg/dL) 0.40 Direct Bilirubin (0.0 - 0.30 MG/DL) 0.10 Indirect Bilirubin (MG/DL) 0.30 AST (15 - 37 IUnit/L) 17 ALT (30 - 65 IUnit/L) 13 L Total Alk Phosphatase (20 - 125 IUnit/L) 112 Total Protein (6.4 - 8.2 g/dL) 6.2 L Albumin (3.4 - 5.0 g/dL) 3.30 L Lipase (13 - 57 U/L) 185 H Coagulation INR (0.8 - 1.2) 1.2 PTT (Vidal) (25.0 - 39.5 Seconds) 31.8 PT Patient/Control Mix (9.3 - 12.9 SECONDS) 12. 8 Hematology WBC (4.5 - 11.0 x10 3/uL) 9.2 RBC (4.00 - 5.60 x10 6/uL) 2.74 L Hgb (12.5 - 16.9 g/dL) 8.2 L Hct (37.5 - 50.7 %) 26.3 L MCV (81.0 - 99.0 fL) 96.0 MCH (27.0 - 33.0 pg) 29.9 MCHC (33.0 - 37.0 g/dL) 31.2 L RDW (11.5 - 14.5 %) 15.2 H Plt Count (150 - 400 x10 3/uL) 243 MPV (7.0 - 9.0 fL) 8.9 Neut % (Auto) (56.0 - 77.0 %) 72.5 Lymph % (Auto) (14.0 - 32.0 %) 11.0 L Dolores % (Auto) (4.8 - 9.0 %) 10.4 H Eos % (Auto) (0.3 - 3.7 %) 5.3 H Baso % (Auto) (0.0 - 2.0 %) 0.3 Neut # (Auto) (2.0 - 7.6 x10 3/uL) 6.68 Lymph # (Auto) (1.0 - 3.8 x10 3/uL) 1.01 Dolores # (Auto) (0.1 - 0.8 x10 3/uL) 0.96 H Eos # (Auto) (0.0 - 0.2 x10 3/uL) 0.49 H Baso # (Auto) (0.0 - 0.2 x10 3/uL) 0.03 Abs Immat Gran (auto) (0.00 - 0.03 x10 3/uL) 0. 05 H Add Manual Diff NO Immature Gran % (0.0 - 2.0 %) 0.5 Nucleated RBC % (0 - 0 %) 0.0 Nucleated RBCs # (Man) (0.0 - 0.1 x10 3/uL) 0.0 0 Toxicology Ethyl Alcohol (<10 mg/dL) < 3.0 Radiology data: CT's performed at [place] Ct head: 7 mm left parafalcine subdural hematoma without shift or herniation. CT scan of his C-spine- no fracture or subluxati on. Diagnosis, Assessment Plan Problem List/A P: 1. Subdural hematoma 2. Fall 3. End stage renal disease Code Status/Resusc. Discussion Resuscitation discussion: Discussed with: patient Pt/family expressed: desire for DNR Free Text DxA P Notes Free Text DxA P Notes: Subdural hematoma-apparently from a fall 2 days ago. He is on anti-platelet medication, but given the lee bacute nature of the fall and relatively small size of the SDH, not planning on reversal but will hold Plavix for now and Lovenox, will use SCD to LLE for now. Based on this ED consultatio n, planning admission, COVID testing (he was exposed 5 days ago but is asymptomatic). Will obtain NS consult, repeat head CT in about 3 hours and follow neuro exam. Will make p t DNR for now per his wish. Planning to limit pain meds or anything sedating for now. Will need renal consult as well Quality: Trauma Gen Surg Advanced Care Plan 65 or Older Discussed with: patient, Patient noting tonight that he wants to be DNR. We discussed what that means an d he is aware- he made that decision for his mother as well Discussion included: code status, surrog ate decision maker per him is a family friend named Marin Anderson Current Medications Unable to obtain: Unable to obtain an accurate home medica tion list at this time. The patient is in an urgent or emergent medical situation where time is of the essence. To delay treatment would jeopardize the pat ient's health status on the day of the encounter. VTE Prophylaxis - General VTE prophylaxis initiated: no pharmacologic, farshad son: (bleeding risk) Electronically Signed by Fausto Espino MD on 04/03 at 0255 RPT #:[id number] END OF REPORT 2020-05-13 01:28:00-00:00 [facility] ([facility]) EMERGENCY PROVIDER REPORT REPORT#:[id number] REPORT STATUS: Signed DATE:05/13/20 TIME: 0128 PATIENT: DARIEN GROSSMAN UNIT #: [id number] ROOM/BED: [facility] AGE: 74 SEX: M PCP PHYS: No Primary or Family Ph ysician SERVICE AUTHOR: Bennett Farnsworth MD * ALL edits or amendments must be made on the C-Note/computer document * HPI-Trauma Minor/Fall Free Text HPI Notes Free Text HPI Notes 74-year male with history of CAD on Plavix, end- stage renal disease, dyslipidemia, presents as a transfer fro [facility] for evaluation of a subdural hematoma. Patient reports that he had a fall 2 days ago, t here was head strike, unclear loss of conscious, patient h ad a CT of the brain performed today that showed a 7 mm left parafalcine subdural hematoma wi thout shift or herniation. He also had a CT scan of his C-spine geoffrey t did not show any fracture or subluxation. At time my evaluation patient denies any acute pain. Den ies any numbness or weakness. Patient is at [facility] due to a complica tion from a right knee arthroplasty. This was complicated by cellulitis and osteomyelitis that required a right AKA in March of this year. C T scan was performed at 2214 yesterday. General Initial Greet Date/Time 05/13/20 0117 Presentation Chief Complaint fall, subdural hematoma Risk-Trauma Minor/Fall Risk Stratification Nexus C-Spine Criteria No: Post midline tenderness, Intoxicated, Altere d LOC/alertness, Focal neuro deficit pres, Distracting injury pres. Micah Coma Score: Copyright Sir Lucien Pratt Copyright Sir Samina Pratt Eye opening: (4) Spontaneous Verbal response: (5) Oriented Best motor response: (6) Obeys commands GCS Score: 15 Review of Systems ROS Statements All systems rev neg except as marked. (SEE HPI O THERWISE) Past Medical History - Adult Stated Complaint HEAD BLEED Allergies Coded Allergies: shellfish derived (Severe, SWELLING 05/13/20) Iodine and Iodide Containing Produc (Mild, DIARR HEA 05/13/20) Uncoded Allergies: PINICILLIN (Mild, ITCHING 05/13/20) Home Medications Reported Medications busPIRone (BUSPAR) 10 MG PO BEDTIME HYDROcodone/APAP (NORCO 10/325) 1 TAB PO Q6H PRN PRN PAIN ZOLPIDEM (AMBIEN) 10 MG PO BEDTIME PRN INSOMNIA GABAPENTIN (NEURONTIN) 300 MG PO BEDTIME DESVENLAFAXINE ER (PRISTIQ) 25 MG PO DAILY traZODone (DESYREL) 150 MG PO BEDTIME FUROSEMIDE (LASIX) 40 MG PO DAILY METOPROLOL TARTRATE (LOPRESSOR) 25 MG PO BID Discontinued Reported Medications CLOPIDOGREL (PLAVIX) 75 MG PO DAILY ASPIRIN 81 MG PO BID Smoking status: Smoking status for patients 13 years old or old er: Never Smoker Physical Exam Vital Signs Vital Signs First Documented: Result Date Time Pulse Ox 96 05/13 012 B/P 163/72 05/13 012 B/P Mean 102 05/13 121 O2 Delivery Room air 05/13 121 Temp 37.3 05/13 012 Pulse 78 05/13 121 Resp 17 05/13 012 Last Documented: Result Date Time Pulse Ox 98 05/13 0226 B/P 151/74 05/13 0226 B/P Mean 99 05/136 Pulse 74 05/13 0226 Resp 17 05/13 022 O2 Delivery Room air 05/13 121 Temp 37.3 05/13 012 Review of Vital Signs Reviewed Free Text PE Notes Free Text PE Notes GENERAL/CONST: Awake, alert, no acute distress, well appearing, non-toxic, well developed, well hydrated, well nourished MS HEAD: Atraumatic, normocephalic EYES: EOMI, no scleral icterus, conjunctiva norm al, PERRLA EAR/NOSE/THROAT: Atraumatic, airway patent, mois t mucous membranes MS NECK: Atraumatic, supple, FROM, no meningeal signs/meningismus, no midline neck tenderness RESP/CHEST: Atraumatic, no chest wall tenderenes s, normal work of breathing without any respiratory dist ress, breath sounds normal, breath sounds equal b/l, no wheeze, rales, nor rhonchi CARDIOVASCULAR: Heart rate normal, regular rhyth m, heart sounds normal, no murmurs, rubs, nor gallops, capillary refill nor mal with normal peripheral circulation, no cyanosis, equal radial and DP pu lses b/l; left forearm AV fistula palpable thrill ABDOMEN/GI: Atraumatic and normal on ins pection, soft, non-tender, no rebound, no rigidity, no guarding, no distention MS BACK: Inspection normal without any evidence of trauma, FROM, no CVA tenderness, no midline nor paraspinal muscle ten derness MS LOWER EXTREMITY: Right AKA otherwise atraumat ic, inspection normal, pelvis stable, no hip tenderness, no deformities, no sw elling, no edema, sensation intact to light touch and symmetric bilaterally MS UPPER EXTREMITY: Atraumat ic, inspection normal, no deformities, no swelling, sensation intact to light touch and symmetric bi laterally SKIN: Color is normal, no rashes nor sores, warm , dry and intact NEUROLOGIC: Awake, alert and oriented x 3, speech normal, no motor deficits, no sensory deficits, CN grossly intact, Interpretation Diagnostics Lab Results Interpretation Considerations Reviewed prior records Results Laboratory Tests 05/13/20 0136: [Embedded Image Not Available] Laboratory Tests: 05/13 05/13 0248 0136 Chemistry Sodium (134 - 147 mEq/L) 139 Potassium (3.4 - 5.0 mEq/L) 3.8 Chloride (100 - 108 mEq/L) 103 Carbon Dioxide (21 - 33 mEq/l) 30 Anion Gap (0 - 20) 10 BUN (7 - 18 mg/dL) 25 H Creatinine (0.6 - 1.3 mg/dL) 2.8 H Glomerular Filtr Rate (70 - 80) 22.3 L Glucose (70 - 110 mg/dL) 96 Calcium (8.0 - 10.5 mg/dL) 8.5 Total Bilirubin (0.0 - 1.0 mg/dL) 0.40 Direct Bilirubin (0.0 - 0.30 MG/DL) 0.10 Indirect Bilirubin (MG/DL) 0.30 AST (15 - 37 IUnit/L) 17 ALT (30 - 65 IUnit/L) 13 L Total Alk Phosphatase (20 - 125 IUnit/L) 112 Total Protein (6.4 - 8.2 g/dL) 6.2 L Albumin (3.4 - 5.0 g/dL) 3.30 L Lipase (13 - 57 U/L) 185 H Coagulation INR (0.8 - 1.2) 1.2 PTT (Vidal) (25.0 - 39.5 Seconds) 31.8 PT Patient/Control Mix (9.3 - 12.9 SECONDS) 12. 8 Hematology WBC (4.5 - 11.0 x10 3/uL) 9.2 RBC (4.00 - 5.60 x10 6/uL) 2.74 L Hgb (12.5 - 16.9 g/dL) 8.2 L Hct (37.5 - 50.7 %) 26.3 L MCV (81.0 - 99.0 fL) 96.0 MCH (27.0 - 33.0 pg) 29.9 MCHC (33.0 - 37.0 g/dL) 31.2 L RDW (11.5 - 14.5 %) 15.2 H Plt Count (150 - 400 x10 3/uL) 243 MPV (7.0 - 9.0 fL) 8.9 Neut % (Auto) (56.0 - 77.0 %) 72.5 Lymph % (Auto) (14.0 - 32.0 %) 11.0 L Dolores % (Auto) (4.8 - 9.0 %) 10.4 H Eos % (Auto) (0.3 - 3.7 %) 5.3 H Baso % (Auto) (0.0 - 2.0 %) 0.3 Neut # (Auto) (2.0 - 7.6 x10 3/uL) 6.68 Lymph # (Auto) (1.0 - 3.8 x10 3/uL) 1.01 Dolores # (Auto) (0.1 - 0.8 x10 3/uL) 0.96 H Eos # (Auto) (0.0 - 0.2 x10 3/uL) 0.49 H Baso # (Auto) (0.0 - 0.2 x10 3/uL) 0.03 Abs Immat Gran (auto) (0.00 - 0.03 x10 3/uL) 0. 05 H Add Manual Diff NO Immature Gran % (0.0 - 2.0 %) 0.5 Nucleated RBC % (0 - 0 %) 0.0 Nucleated RBCs # (Man) (0.0 - 0.1 x10 3/uL) 0.0 0 Serology SARS-CoV-2 Ag (Rapid) (Negative) Negative Toxicology Ethyl Alcohol (<10 mg/dL) < 3.0 Lab Imaging Statement Laboratory radiographic studies reviewed and con sidered in the medical decision-making. Point of Care Testing Pulse Oximetry Pulse Ox % 98 On: Room air Interpretation Interpreted by me, Pulse oximetr y normal Time 0026 Re-Evaluation MDM Re-Evaluation/Progress #1 Text/Dict Note patient to be admitted to [facility] service for ongoing monitoring and repeat head CT for traumatic SDH. Trauma to consult neurosug judith. Time of Re-Eval 0132 Re-Eval Status Unchanged ED Course Medication(s) Ordered Medication(s) Ordered: Cardiovascular Drugs Sig/Tatum Start time Last Medication Dose Route Stop Time Status Admin Hydralazine HCl 10 MG Q6H PRN PRN 05/13 0245 AC 05/13 IV 06/12 0244 2154 Central Nervous System Agents Sig/Tatum Start time Last Medication Dose Route Stop Time Status Admin Levetiracetam 500 MG Q12HR 05/13 899 AC 05/14 PO 05/19 0901 2137 Acetaminophen 650 MG Q6H PRN PRN 05/13 0245 AC PO 06/12 0244 Morphine Sulfate 4 MG Q4H PRN PRN 05/13 0245 AC 05/14 IV 05/18 0244 2137 Gastrointestinal Drugs Sig/Tatum Start time Last Medication Dose Route Stop Time Status Admin Polyethylene Glycol 17 GM DAILY 05/13 899 AC 0 05/14 PO 06/12 0859 1209 Ondansetron HCl 4 MG Q4H PRN PRN 05/13 0245 AC IV 06/12 0244 Patient Discharge Departure Vital Signs/Condition Vital Signs First Documented: Result Date Time Pulse Ox 96 05/13 121 B/P 163/72 05/13 012 B/P Mean 102 05/13 012 O2 Delivery Room air 05/13 121 Temp 37.3 05/13 012 Pulse 78 05/13 012 Resp 17 05/13 012 Last Documented: Result Date Time Pulse Ox 98 05/13 225 B/P 151/74 05/13 225 B/P Mean 99 05/13 225 Pulse 74 /225 Resp 17 05/13 022 O2 Delivery Room air 05/13 121 Temp 37.3 05/13 012 All vital signs available at the time of this en try have been reviewed. Condition Guarded Clinical Impression Clinical Impression Primary Impression: Fall Secondary Impressions: Subdural hematoma Disposition Decision Admit Admit Physician Name Fausto Espino MD Admit Physician Trauma Surgeon Request Time 133 Request Date 05/13/20 )( Admission Accepts Yes )( Accepted Time 133 )( Accepted Date 05/13/20 Discharge/Care Plan Counseled Regarding Diagnosis, Imaging studies, Need for admission (Auto) Prescriptions Current Visit Scripts levETIRAcetam (KEPPRA) 500 MG PO Q12HR levETIRAcetam (KEPPRA) 500 MG PO Q12HR #10 TAB Electronically Signed by Bennett Farnsworth MD on at 0137 RPT #:[id number] END OF REPORT
[2022-08-13 17:56] LABS: Absolute Lymphocytes (CBC) 0.6 K/uL (0.7-4.9); Hematocrit 28.4 % (39.6-49.0); Lymphocytes % 6.6 % (15.3-44.8); MCV 90.5 fL (80-100); MPV 6.6 fL (7.6-11.3); RBC Red Blood Cell Count 3.14 M/uL (4.33-5.43)
[2022-08-13] MEDS ORDERED: NITROGLYCERIN 0.4 MG/TAB SL ONE (18:07)
[2022-08-13] MEDS ORDERED: ONDANSETRON 4 MG/2 ML VIAL ONE (18:13)
[2022-08-13] MEDS ORDERED: MORPHINE 4 MG/ML SYR ONE ×2 (18:13→20:00)
[2022-08-13 18:17] LABS: Potassium 4.3 mEq/L (3.5-5.1); Troponin High Sensitivity 11.9 pg/mL (<58.9)
--- NOTE | 2022-08-13 19:06 | RAD REPORT ---
EXAM DESCRIPTION: RAD - Chest Single View - 08/13/2022 6:55 pm CLINICAL HISTORY: CHEST PAIN Chest pain. COMPARISON: Chest Single View dated 02/10/2022; Chest Single View dated 01/22/2022; Chest Pa And Lat (2 Views) dated 08/31/2021; Chest Single View dated 07/28/2021 FINDINGS: Portable technique limits examination quality. Mild pulmonary edema. Small bilateral pleural effusions. The heart is enlarged since. Dual lead pacer device present. IMPRESSION: Mild CHF.
[2022-08-13] MEDS ORDERED: ONDANSETRON 4 MG/2 ML VIAL IV PRN (20:29)
[2022-08-13] MEDS ORDERED: ACETAMINOPHEN 500 MG TAB PO PRN (20:29)
[2022-08-13] MEDS ORDERED: ALPRAZOLAM 0.25 MG TABLET PO PRN (20:29)
--- NOTE | 2022-08-13 20:29 | ER ---
Nurse's Notes [facility] Name: Amando Grossman Age: 76 yrs Sex: Male : 1945 Arrival Date: 08/13/2022 Time: 17:15 Bed 2 Private MD: Diagnosis: Chest pain, unspecified;End stage renal disease Presentation: 08/13 17:22 Chief complaint: EMS states: midsternal chest pain while at dialysis, paced rhythm on iw monitor, EMS gave 324 ASA and [address] STENOGRAPHER, IBY=144, pain down to 4/10. Coronavirus screen: At this time, the client does not indicate any symptoms associated with coronavirus-19. Ebola Screen: Patient negative for fever greater than or equal to 101.5 degrees Fahrenheit, and additional compatible Ebola Virus Disease symptoms Patient denies exposure to infectious person. Patient denies travel to an Ebola-affected area in the 21 days before illness onset. No symptoms or risks identified at this time. Initial Sepsis Screen: Does the patient meet any 2 criteria? No. Patient's initial sepsis screen is negative. Does the patient have a suspected source of infection? No. Patient's initial sepsis screen is negative. Risk Assessment: Do you want to hurt yourself or someone else? Patient reports no desire to harm self or others. Onset of symptoms was August 13, 2022. 17:22 Method Of Arrival: EMS: [facility] iw 17:22 Acuity: KELLY 3 iw Historical: - Allergies: 17:24 "statins"; iw 17:24 Iodine; topical is ok; iw 17:24 PENICILLINS; iw 17:24 Shellfish Containing Products; iw - Home Meds: 17:26 amitriptyline 10 mg Oral tablet daily [Active]; aspirin 81 mg Oral capsule daily iw [Active]; clopidogrel 75 mg oral tablet daily [Active]; collagenase clostridium histolyticum topical [Active]; furosemide 40 mg/4 mL Oral solution daily [Active]; gabapentin 300 mg oral capsule daily [Active]; losartan 50 mg oral tablet 2 times per day [Active]; metoprolol succinate 25 mg oral Tablet, Extended Release 24 hr daily [Active]; Miralax 17 gram Oral powder in packet daily [Active]; senna 8.6 mg oral tablet daily [Active]; sertraline 50 mg oral tablet daily [Active]; trazodone 150 mg Oral tablet daily [Active]; zolpidem 10 mg Oral tablet as needed [Active]; - PMHx: 17:24 Anxiety; Depression; Dialysis <M and F; GERD; High Cholesterol; Hypertension; mascular iw degeneration; Urinary Urgency; - PSHx: 17:24 R AKA; iw - Immunization history:: Adult Immunizations up to date. - Social history:: Smoking status: Patient denies any tobacco usage or history of. Screenin:45 [facility] ED Fall Risk Assessment (Adult) History of falling in the last 3 months, jl7 including since admission No falls in past 3 months (0 pts) Confusion or Disorientation No (0 pts) Intoxicated or Sedated No (0 pts) Impaired Gait Yes (1 pt) Mobility Assist Device Used No (0 pt) Altered Elimination No (0 pt) Score/Fall Risk Level 0 - 2 = Low Risk Oriented to surroundings, Maintained a safe environment. Abuse screen: Denies threats or abuse. Denies injuries from another. Nutritional screening: No deficits noted. Tuberculosis screening: No symptoms or risk factors identified. Assessment: 17:42 General: Appears in no apparent distress. uncomfortable, Behavior is calm, cooperative, jl7 appropriate for age. Pain: Complains of pain in anterior aspect of left upper chest Pain does not radiate. Pain currently is 4 out of 10 on a pain scale. at worst was 6 out of 10 on a pain scale. Quality of pain is described as pressure, Pain began suddenly, Is continuous. Neuro: Level of Consciousness is awake, alert, obeys commands, Oriented to person, place, time, situation. Cardiovascular: Patient's skin is warm and dry. Rhythm is regular. Respiratory: Airway is patent Respiratory effort is even, unlabored, Respiratory pattern is regular, symmetrical, Denies shortness of breath. Derm: Skin is pink, warm \\T\\ dry. 17:55 Reassessment: Dr. Abdalla gave VO for 1 nitro sublingual, pt reports pain 6/10 at this jl7 time, medicated as ordered. 18:30 Reassessment: Pt reports no improvement in pain, requesting morphine, Dr. Abdalla jl7 notified and gave VO for 4 mg Morphine and 4 mg Zofran IVP, pt medicated as ordered. 18:54 Reassessment: Patient appears in no apparent distress at this time. Patient and/or jl7 family updated on plan of care and expected duration. Pain level reassessed. Patient states feeling better. 19:21 Reassessment: Patient appears in no apparent distress at this time. no complaints or as6 concerns at this time. 19:46 Reassessment: Pt reports chest pain is returning, ER physician notified. jb4 20:20 Reassessment: Patient appears in no apparent distress at this time. Patient and/or jb4 family updated on plan of care and expected duration. Pain level reassessed. Patient is alert, oriented x 3, equal unlabored respirations, skin warm/dry/pink. Patient states feeling better. 21:16 Reassessment: Patient appears in no apparent distress at this time. Patient and/or jb4 family updated on plan of care and expected duration. Pain level reassessed. Patient is alert, oriented x 3, equal unlabored respirations, skin warm/dry/pink. Vital Signs: 17:22 BP 118 / 51; Pulse 51; Resp 17; Temp 97.9; Pulse Ox 97% ; Pain 4/10; jl7 17:25 BP 118 / 51; Pulse 83; Resp 18; Temp 97.3; Pulse Ox 98% on R/A; Weight 78.02 kg; Height iw 5 ft. 8 in. ; Pain 4/10; 17:45 BP 117 / 59; Pulse 81; Resp 15; Pulse Ox 97% ; jl7 18:35 BP 114 / 56; Pulse 82; Resp 15; Pulse Ox 95% ; Pain 4/10; jl7 19:21 BP 107 / 58; Pulse 79; Resp 18 S; Pulse Ox 95% on R/A; as6 20:20 BP 105 / 57; Pulse 78; Resp 16; Pulse Ox 96% on R/A; jb4 21:03 BP 118 / 62; Pulse 77; Resp 18 S; Pulse Ox 96% on R/A; as6 17:25 Body Mass Index 26.15 (78.02 kg, 172.72 cm) iw 17:22 Pain Scale: Adult jl7 17:25 Pain Scale: Adult iw 18:35 Pain Scale: Adult jl7 ED Course: 17:21 Patient arrived in ED. jl7 17:24 Triage completed. iw 17:24 Arm band placed on. iw 17:27 Trevor Abdalla MD is Attending Physician. kdr 17:42 Bao Dukes, RN is Primary Nurse. jl7 17:45 Patient has correct armband on for positive identification. Placed in gown. Bed in low jl7 position. Call light in reach. Side rails up X2. Client placed on continuous cardiac and pulse oximetry monitoring. NIBP monitoring applied. Warm blanket given. 17:45 Initial lab(s) drawn, by me, sent to lab. EKG done, by ED staff, reviewed by Trevor Abdalla MD. Maintain EMS IV. Dressing intact. Gauge \\T\\ site: 22 right hand. Patient maintains SpO2 saturation greater than 95% on room air. 18:57 XRAY Chest (1 view) In Process Unspecified. EDMS 20:28 Colten Flores is Hospitalizing Provider. kdr 21:02 No provider procedures requiring assistance completed. Patient admitted, IV remains in as6 place. Administered Medications: 17:55 Drug: Nitroglycerin Sublingual 0.4 mg Route: Sublingual; jl7 18:35 Drug: morphine IVP or IV 4 mg Route: IVP; Infused Over: 4 mins; Site: right hand; jl7 18:35 Drug: Ondansetron IVP 2 mg Route: IVP; Site: right hand; jl7 19:57 Drug: morphine IVP or IV 4 mg Route: IVP; Infused Over: 4 mins; Site: right hand; jb4 Medication: 17:42 VIS not applicable for this client. jl7 Outcome: 20:29 Decision to Hospitalize by Provider. kdr 21:02 Condition: stable as6 21:02 Instructed on the need for admit. 21:23 Admitted to Tele accompanied by tech, via stretcher, room 218, with chart, Report jb4 called to ADRIEN Benavidez 21:24 Patient left the ED. jb4 Signatures: Dispatcher [employer] EDCO Trevor Abdalla MD MD kdr Bettye Allison, ADRIEN JURADO iw Reji Lopez RN RN jb4 Bao Dukes, ADRIEN JURADO jl7 Manuelito Newton RN RN as6
--- NOTE | 2022-08-13 20:29 | EDPHYS ---
Physician Documentation [facility] Name: Amando Grossman Age: 76 yrs Sex: Male : 1945 Arrival Date: 08/13/2022 Time: 17:15 Bed 2 Private MD: ED Physician Trevor Abdalla HPI: 08/13 21:12 This 76 yrs old Male presents to ER via EMS with complaints of Chest Pain. kdr 21:13 Patient complains of central chest pain that began about an hour ago. The patient was kdr at dialysis and about 2 hours into his 4-hour session when he began to have the pain. Patient states he has not had pain like this before. He denies any nausea or shortness of breath or diaphoresis. The pain he states is nonradiating. Patient has a history of end-stage renal disease and is obviously on dialysis and has a right AKA. Patient also had a recent pacemaker placed in the last month and a half. Patient is otherwise stable and nontoxic-appearing. Patient was given several nitroglycerin by EMS which improved his pain. Repeat nitroglycerin here in the ED did not have significant effect or permanent relief of his discomfort.. Onset: The symptoms/episode began/occurred just prior to arrival. Severity of symptoms: At their worst the symptoms were mild moderate just prior to arrival. The patient has experienced similar episodes in the past, a few times. The patient has not recently seen a physician. Patient denies having chest pain in this manner while on dialysis previously. Historical: - Allergies: 17:24 "statins"; iw 17:24 Iodine; topical is ok; iw 17:24 PENICILLINS; iw 17:24 Shellfish Containing Products; iw - Home Meds: 17:26 amitriptyline 10 mg Oral tablet daily [Active]; aspirin 81 mg Oral capsule daily iw [Active]; clopidogrel 75 mg oral tablet daily [Active]; collagenase clostridium histolyticum topical [Active]; furosemide 40 mg/4 mL Oral solution daily [Active]; gabapentin 300 mg oral capsule daily [Active]; losartan 50 mg oral tablet 2 times per day [Active]; metoprolol succinate 25 mg oral Tablet, Extended Release 24 hr daily [Active]; Miralax 17 gram Oral powder in packet daily [Active]; senna 8.6 mg oral tablet daily [Active]; sertraline 50 mg oral tablet daily [Active]; trazodone 150 mg Oral tablet daily [Active]; zolpidem 10 mg Oral tablet as needed [Active]; - PMHx: 17:24 Anxiety; Depression; Dialysis <M and F; GERD; High Cholesterol; Hypertension; mascular iw degeneration; Urinary Urgency; - PSHx: 17:24 R AKA; iw - Immunization history:: Adult Immunizations up to date. - Social history:: Smoking status: Patient denies any tobacco usage or history of. ROS: 21:13 Constitutional: Negative for fever, chills, and weight loss, Eyes: Negative for injury, kdr pain, redness, and discharge, ENT: Negative for injury, pain, and discharge, Neck: Negative for injury, pain, and swelling, Respiratory: Negative for shortness of breath, cough, wheezing, and pleuritic chest pain, Abdomen/GI: Negative for abdominal pain, nausea, vomiting, diarrhea, and constipation, Back: Negative for injury and pain, : Negative for injury, bleeding, discharge, and swelling, MS/Extremity: Negative for injury and deformity, Skin: Negative for injury, rash, and discoloration, Neuro: Negative for headache, weakness, numbness, tingling, and seizure activity. Psych: Negative for depression, anxiety, suicide ideation, homicidal ideation, and hallucinations, Allergy/Immunology: Negative for hives, rash, and allergies, Endocrine: Negative for neck swelling, polydipsia, polyuria, polyphagia, and marked weight changes, Hematologic/Lymphatic: Negative for swollen nodes, abnormal bleeding, and unusual bruising. 21:13 Cardiovascular: Positive for chest pain, Negative for edema, orthopnea, palpitations, paroxysmal nocturnal dyspnea. Exam: 21:13 Constitutional: This is a well developed, well nourished patient who is awake, alert, kdr and in no acute distress. Head/Face: Normocephalic, atraumatic. Eyes: Pupils equal round and reactive to light, extra-ocular motions intact. Lids and lashes normal. Conjunctiva and sclera are non-icteric and not injected. Cornea within normal limits. Periorbital areas with no swelling, redness, or edema. Neck: Trachea midline, no thyromegaly or masses palpated, and no cervical lymphadenopathy. Supple, full range of motion without nuchal rigidity, or vertebral point tenderness. No Meningismus. Chest/axilla: Normal chest wall appearance and motion. Nontender with no deformity. No lesions are appreciated. Cardiovascular: Regular rate and rhythm with a normal S1 and S2. No gallops, murmurs, or rubs. Normal PMI, no JVD. No pulse deficits. Respiratory: Lungs have equal breath sounds bilaterally, clear to auscultation and percussion. No rales, rhonchi or wheezes noted. No increased work of breathing, no retractions or nasal flaring. Abdomen/GI: Soft, non-tender, with normal bowel sounds. No distension or tympany. No guarding or rebound. No evidence of tenderness throughout. Back: No spinal tenderness. No costovertebral tenderness. Full range of motion. Skin: Warm, dry with normal turgor. Normal color with no rashes, no lesions, and no evidence of cellulitis. Neuro: Awake and alert, GCS 15, oriented to person, place, time, and situation. Cranial nerves II-XII grossly intact. Motor strength 5/5 in all extremities. Sensory grossly intact. Cerebellar exam normal. Normal gait. Psych: Awake, alert, with orientation to person, place and time. Behavior, mood, and affect are within normal limits. Vital Signs: 17:22 BP 118 / 51; Pulse 51; Resp 17; Temp 97.9; Pulse Ox 97% ; Pain 4/10; jl7 17:25 BP 118 / 51; Pulse 83; Resp 18; Temp 97.3; Pulse Ox 98% on R/A; Weight 78.02 kg; Height iw 5 ft. 8 in. ; Pain 4/10; 17:45 BP 117 / 59; Pulse 81; Resp 15; Pulse Ox 97% ; jl7 18:35 BP 114 / 56; Pulse 82; Resp 15; Pulse Ox 95% ; Pain 4/10; jl7 19:21 BP 107 / 58; Pulse 79; Resp 18 S; Pulse Ox 95% on R/A; as6 20:20 BP 105 / 57; Pulse 78; Resp 16; Pulse Ox 96% on R/A; jb4 21:03 BP 118 / 62; Pulse 77; Resp 18 S; Pulse Ox 96% on R/A; as6 17:25 Body Mass Index 26.15 (78.02 kg, 172.72 cm) iw 17:22 Pain Scale: Adult jl7 17:25 Pain Scale: Adult iw 18:35 Pain Scale: Adult jl7 MDM: 20:29 Patient medically screened. kdr 21:13 Data reviewed: vital signs, nurses notes, lab test result(s), EKG, radiologic studies. kdr 08/13 17:41 Order name: Basic Metabolic Panel; Complete Time: 19:48 iw 08/13 17:41 Order name: CBC with Diff; Complete Time: 19:48 iw 08/13 17:41 Order name: Troponin HS; Complete Time: 19:48 iw 08/13 19:49 Order name: Troponin High Sensitivity: Draw at 20:00 kdr 08/13 20:35 Order name: Urinalysis w/ reflexes EDMS 08/13 20:35 Order name: Basic Metabolic Panel EDMS 08/13 20:35 Order name: Basic Metabolic Panel EDMS 08/13 20:35 Order name: Basic Metabolic Panel EDMS 08/13 20:35 Order name: Basic Metabolic Panel EDMS 08/13 20:35 Order name: CBC with Automated Diff EDMS 08/13 20:35 Order name: CBC with Automated Diff EDMS 08/13 20:35 Order name: CBC with Automated Diff EDMS 08/13 20:35 Order name: CBC with Automated Diff EDMS 08/13 20:35 Order name: Magnesium EDMS / 20:35 Order name: Magnesium EDMS / 20:35 Order name: Magnesium EDMS 08/13 20:35 Order name: Magnesium EDMS / 20:35 Order name: Phosphorus EDMS / 20:35 Order name: Phosphorus EDMS / 20:35 Order name: Phosphorus EDMS / 20:35 Order name: Phosphorus EDMS / 20:35 Order name: Troponin High Sensitivity EDMS 08/13 20:35 Order name: Troponin High Sensitivity EDMS 08/13 20:35 Order name: Troponin High Sensitivity EDMS / 20:35 Order name: Troponin High Sensitivity EDMS / 17:41 Order name: XRAY Chest (1 view); Complete Time: 19:48 iw 08/13 17:41 Order name: EKG; Complete Time: 17:42 iw 08/13 20:35 Order name: Renal EDMS 08/13 17:41 Order name: Cardiac monitoring; Complete Time: 17:42 iw 08/13 17:41 Order name: EKG - Nurse/Tech; Complete Time: 17:42 iw 08/13 17:41 Order name: IV Saline Lock; Complete Time: 17:42 iw 08/13 17:41 Order name: Labs collected and sent; Complete Time: 17:42 iw 08/13 17:41 Order name: O2 Per Protocol; Complete Time: 17:42 iw 08/13 17:41 Order name: O2 Sat Monitoring; Complete Time: 17:42 iw Administered Medications: 17:55 Drug: Nitroglycerin Sublingual 0.4 mg Route: Sublingual; jl7 18:35 Drug: morphine IVP or IV 4 mg Route: IVP; Infused Over: 4 mins; Site: right hand; jl7 18:35 Drug: Ondansetron IVP 2 mg Route: IVP; Site: right hand; jl7 19:57 Drug: morphine IVP or IV 4 mg Route: IVP; Infused Over: 4 mins; Site: right hand; jb4 Disposition Summary: 08/13/22 20:29 Hospitalization Ordered Hospitalization Status: Inpatient Admission kdr Provider: Colten Flores kdr Location: Telemetry/MedSurg (observation) kdr Condition: Fair kdr Problem: new kdr Symptoms: have improved kdr Bed/Room Type: Standard kdr Room Assignment: 218(08/13/22 21:00) mw Diagnosis - Chest pain, unspecified kdr - End stage renal disease kdr Forms: - Medication Reconciliation Form kdr - SBAR form kdr Signatures: Dispatcher [employer] EDMS Genna Mathew RN RN mw Rittger, Kevin, MD MD kdr Bettye Allison RN RN Reji Lopez RN RN jb4 Bao Dukes RN RN jl7 Corrections: (The following items were deleted from the chart) 21:00 20:29 kdr mw
[2022-08-13] MEDS ORDERED: INSULIN -REGULAR HUMAN 50 UNIT/0.5 ML ML SQ SCH (21:00)
--- NOTE | 2022-08-13 21:14 | P.HP ---
Certification for Inpatient Patient admitted to: Observation With expected LOS: <2 Midnights Patient will require the following post-hospital care: None Practitioner: I am a practitioner with admitting privileges, knowledge of patient current condition, hospital course, and medical plan of care. Services: Services provided to patient in accordance with Admission requirements found in Title 42 Section 412.3 of the Code of Federal Regulations Patient History Date of Service: 08/13/22 Reason for admission: Atypical chest pain History of Present Illness: 76-year-old male with history of ESRD on HD, hypertension, hyperlipidemia, and GERD who was sent to the ED for chest pain. He reported chest pain 2 hours during dialysis today. He reports Chest pain was substernal, did not radiate. He reports having PPM 2 weeks ago. He reports chest pain resolved with prn analgesics given in ER. EKG shows paced rhythm. Cardiology was consulted in ED and has agreed to consult. He is admitted for observation. Allergies Iodinated Contrast Media [Iodinated Contrast- Oral and IV Dye] Allergy (Verified 11/24/21 11:44) Nausea/Vomiting/Diarrhea Penicillins Allergy (Verified 11/24/21 11:44) Hives shellfish derived Allergy (Verified 11/24/21 11:44) Nausea/Vomiting/Diarrhea Home Medications: Aspirin [Aspirin EC 81 MG] 81 mg PO DAILY 01/10/17 Celecoxib [Celebrex*] 100 mg PO DAILY 01/10/17 Clopidogrel Bisulfate [Plavix*] 75 mg PO DAILY 01/10/17 Fluticasone [Flovent Hfa 110*] 2 sprays IH BID 01/10/17 Niacin 500 mg PO DAILY 01/10/17 Nifedipine Xl [Procardia XL*] 60 mg PO [id number] 01/10/17 Nisoldipine [Sular] 34 mg PO DAILY AFTER SUPPER 01/10/17 Pantoprazole [Protonix Tab*] 40 mg PO DAILY 01/10/17 Tamsulosin [Flomax*] 0.4 mg PO BEDTIME 01/10/17 Ubidecarenone/Vitamin E Mixed [Wlj70-Yqv E 200 mg-20 Unit Sf] 1 each PO DAILY 01/10/17 Vit A/Vit C/Vit E/Zinc/Copper [Icaps Areds Formula Dr Tablet] 1 each PO DAILY 01/10/17 Zolpidem Tartrate [Ambien*] 10 mg PO BEDTIME PRN PRN 01/10/17 - Past Medical/Surgical History Diabetic: No -: ESRD on HD -: Hyperlipidemia -: GERD -: Hypertension -: Depression/Anxiety -: Macular Degeneration -: RT AKA -: [id number] PPM Psychosocial/ Personal History: Patient lives at home with his family. - Family History Father -: Heart disease Mother -: Lung disease - Social History Alcohol use: No CD- Drugs: No Caffeine use: Yes Physical Examination - Physical Exam General: Alert, In no apparent distress, Oriented x3 HEENT: Atraumatic, Normocephalic, PERRLA Neck: Supple, 2+ carotid pulse no bruit Respiratory: Clear to auscultation bilaterally, Normal air movement Cardiovascular: Other (Paced Rhythm), Edema (LLE +1) Capillary refill: <2 Seconds Gastrointestinal: Normal bowel sounds, Soft and benign Musculoskeletal: No clubbing, Other (R)BKA) Integumentary: No rashes, No breakdown Neurological: Normal speech, Cranial nerves 3-12 intact, Normal affect - Studies Laboratory Data (last 24 hrs) 08/13/22 17:40: WBC 8.90, Hgb 9.5 L, Hct 28.4 L, Plt Count 351 08/13/22 17:40: Sodium 136, Potassium 4.3, BUN 39 H, Creatinine 5.12 H, Glucose 101 Assessment and Plan - Problems (Diagnosis) (1) Atypical chest pain Onset Date: ~08/13/22 Current Visit: Yes Status: Acute Plan: Admit to OBS Telemetry Trend Troponin Card consulted resume appro HTN medications (2) Hemodialysis patient Current Visit: Yes Status: Chronic Plan: Nephrology consult in AM if patient not Discharged from Obs renal diet (3) Hypertension Current Visit: Yes Status: Chronic Plan: resume Home HTN medications Qualifiers: Hypertension type: primary hypertension Qualified Code(s): I10 - Essential (primary) hypertension (4) Hyperlipidemia Current Visit: Yes Status: Chronic Plan: resume home HLD medications Heart healthy diet Qualifiers: Hyperlipidemia type: unspecified Qualified Code(s): E78.5 - Hyperlipidemia, unspecified (5) Anemia Current Visit: Yes Status: Chronic Plan: Trend HH Qualifiers: Anemia type: due to chronic kidney disease Chronic kidney disease stage: on chronic dialysis Qualified Code(s): N18.6 - End stage renal disease; D63.1 - Anemia in chronic kidney disease; Z99.2 - Dependence on renal dialysis Discharge Plan: Home Plan to discharge in: 24 Hours - Advance Directives Does patient have a Living Will: No Does patient have a Durable POA for Healthcare: No - Code Status/Comfort Care Code Status: Full Code Physician Review: Patient Assessed, Agree with Above Assessment and Plan Critical Care: No Time Spent Managing Pts Care (In Minutes): 55
[2022-08-13] MEDS: ZOLPIDEM TARTRATE 10 MG TABLET PO PRN (22:48)
[2022-08-14 00:09] VITALS: BMI 31.7
[2022-08-14] MEDS: MORPHINE 2 MG/ML SYR IV PRN ×4 (00:27→17:53)
[2022-08-14] MEDS ORDERED: HEPARIN 5000 UNIT/ML 1 ML VIAL SQ SCH (01:00)
[2022-08-14 03:42] LABS: Absolute Lymphocytes (CBC) 0.8 K/uL (0.7-4.9); Lymphocytes % 9.5 % (15.3-44.8); MCV 90.1 fL (80-100); MPV 6.2 fL (7.6-11.3)
[2022-08-14 04:22] LABS: Magnesium 2.6 mg/dL (1.6-2.4); Phosphorus 5.2 mg/dL (2.5-4.9); Potassium 5.2 mEq/L (3.5-5.1)
[2022-08-14 04:24] LABS: Troponin High Sensitivity 212.5 pg/mL (<58.9)
[2022-08-14] MEDS ORDERED: HEPARIN/D5W 500 ML IV PRN (04:51)
[2022-08-14 04:52] VITALS: O2SAT 95
[2022-08-14 05:41] LABS: Protime INR 1.01
[2022-08-14] MEDS ORDERED: HEPARIN/D5W 25,000 UNIT/500 ML BAG IV PRN (06:50)
--- NOTE | 2022-08-14 07:09 | P.PN ---
Date of Service: 08/14/22 Subjective: doing okay today chest pain after dialysis yesterday, +this morning at rest states has h/o chest pain, with most exertional activity trop trending up, heparin drip ordered overnight ROS: 10 point ROS as noted above, otherwise negative Physical Exam: GEN: Alert, oriented, NAD HEENT: Normal conjunctiva, sclera anicteric CV: Regular rate and rhythm, Paced, trace-1+ LLE edema Pulm: Nonlabored respirations on room air at rest ABD: Soft, nontender, nondistended MSK: Right BKA Neuro: Normal speech, normal affect vitals reviewed Problem List: Chest pain, NSTEMI ESRD on HD Hypertension Hyperlipidemia Anemia, chronic h/o GI Bleed h/o severe aortic stenosis h/o recent pacemaker placement Chest pain, NSTEMI CXR (08/13): mild CHF trop trending up; heparin drip started 08/14 continue telemetry Cardiology Consulted Last echo (January 2022): 55-60% EF, mild TR, mild MR, severe pulm HTN, severe aortic stenosis, left atrial enlargement PRN pain meds ESRD on HD Nephrology consulted continue to monitor renal function Dialysis per nephro patient reports low blood pressure with dialysis Hypertension Hyperlipidemia confirm home medications, restart as appropriate Anemia, chronic h/o GI bleed Stable. Monitor H&H. Transfuse if hgb < 7 reports a few hospitalizations in past for GI bleed on plavix. no current bleed monitor closely for evidence of bleed VTE: Heparin drip Code: Full Dispo: Home
--- NOTE | 2022-08-14 10:40 | CON ---
Date of Consultation: 08/14/2022 Reason For Consultation: Elevated BUN and creatinine, end-stage renal disease, hypertension. History Of Present Illness: This is a pleasant 76-year-old gentleman, well known to me from dialysis with significant past medical history of end-stage renal disease, on hemodialysis, Saturday, Saturday , Saturday at [facility] through left arm AV fistula, hypertension, hyperlipidemi a, GERD, knee infection status post above-knee amputation, the patient was in his regular state of he alth, apparently went to dialysis yesterday, his blood pressure was on the 80 and after around 1 hour of dialysis, the patient has chest pain and elevation in the blood pressure up to 140. The patient woke up from sleeping with chest pain. For that reason, the patient was referred to the hospital. T he patient currently chest pain-free. The patient was placed on heparin. Primary workup in the hosp ital showed marginal elevation in troponin with marginal hyperkalemia. For that reason, we have been consulted. Past Medical History: Includes; 1.End-stage renal disease, on hemodialysis Saturday, Saturday, Saturday. 2.Secondary hyperparathyroidism. 3.Knee infection, status post above-knee amputation. 4.Hyperlipidemia. 5.GERD. Past Surgical History: Includes AV fistula, knee replacement, and above-knee amputation. Allergies: TO IODINE, PENICILLIN, AND SHELLFISH. Home Medications: Include aspirin, Celebrex, Plavix, niacin, nifedipine, Flomax, pantoprazole, and A mbien. Family History: Positive for hypertension, CAD, lung disease. Social History: Denied smoking, denied drinking, denied drug abuse. Review of Systems: Head and Neck: No red eye. No ear pain. GI: No nausea. No vomiting. : No polyuria. No dysuria. No hematuria. Scheduling Clerk: Not applicable. Respiratory: No shortness of breath. Cardiovascular: Has chest pain. Endocrine: No polydipsia. Skin: No rash. Neuro: Has neuropathy. Musculoskeletal: No joint pain. Physical Examination: Vital Signs: When I saw the patient; blood pressure of 140/59, pulse of 82, afebrile. Chest: Clear to auscultation. Heart: S1, S2. Regular. Abdomen: Soft, nontender. Extremities: Right above-knee amputation. Trace edema. Neurologic: Alert. No focality. Laboratory Data: Sodium 138, potassium 5.2, bicarb 27, BUN 43, creatinine 5.8, calcium 8.2, magnesiu m 2.6, phosphorus 5.2, troponin 212. Chest x-ray, cardiomegaly with congestion. Assessment And Plan: 1.End-stage renal disease with over volume, could not complete dialysis yesterday. I am going to ar range for the dialysis today and we will challenge the patient. 2.Hypertension. We will utilize blood pressure for ultrafiltration. The patient tends to have low blood pressure on dialysis. We will hold all blood pressure medications. 3.Hyperkalemia. We will dialyze on low potassium bath. 4.Over volume. We will challenge the patient today. 5.Chest pain with the background of coronary artery disease. We will follow up with Cardiology. Co ntinue heparin. 6.Alkalosis. Will be corrected with dialysis. 7.PAD, status post above-knee amputation on the right side. We will follow up with primary. Time spent examining the patient [id number], reviewing data, lab and radiology, placing order, disc ussing the case with the patient and nursing staff, discussing the case with hemodialysis nurse and hospitalist more than 75 minutes. BRAD Voice ID: [id number] Report ID: [id number]
[2022-08-14 11:43] LABS: Specific Gravity 1.012 (1.005-1.030); Urine Bacteria None Seen /HPF (<20); Urine Bilirubin NEGATIVE (Negative); Urine Blood 2+ (Negative); Urine Clarity Turbid (Clear); Urine Color Light-Yellow (Yellow); Urine Glucose NEGATIVE (Negative); Urine Protein 1+ (Negative); Urine RBC <5 /HPF (None Seen); Urine Urobilinogen Normal (Normal); Urine pH 6.5 (5.0-7.0)
[2022-08-14] MEDS: NITROGLYCERIN 0.4 MG/TAB SL PRN ×2 (14:28→14:33)
[2022-08-14] MEDS ORDERED: NITROGLYCERIN 0.2 MG/HR (5 MG) PATCH TD SCH (15:04)
--- NOTE | 2022-08-14 15:25 | CON ---
Date of Consultation: 08/14/2022 Reason For Consultation: Chest pain. History Of Present Illness: A 76-year-old male with history of end-stage renal disease, on hemodialy sis, hypertension, dyslipidemia, acid reflux, moderate aortic valve stenosis and diastolic heart fail ure, presented with chest pain, substernal, no radiation. He said it is like a brick sitting there a nd eases up slightly, but it is always there. He had a pacemaker placed about 2 weeks ago and when messi bravo was admitted, he was chest pain free, but I started evaluating him today and he was having 8/[address] pain, responded very well to sublingual nitroglycerin. The patient has history of coronary artery disease, status post stent placement in the past. Past Medical History: Coronary artery disease, end-stage renal disease, on hemodialysis, dyslipidemi a, hypertension, acid reflux. Medications: Refer to reconciliation sheet for detailed list. Allergies: IODINE, PENICILLIN. Family History: No premature coronary artery disease or cancer. Social History: He does not smoke or drink. Does not use any drugs. Review of Systems: All systems reviewed and they were negative except what mentioned in HPI. Physical Examination: Vital Signs: Reviewed. Head and Neck: Pupils are equal, reactive to light. Intact eye movements. No cervical lymphadenopa thy. Neck is supple. Thyroid is not enlarged. Lungs: Clear to auscultation bilaterally. No rhonchi, wheezing, or crackles. No accessory muscle u se. Heart: Regular rate and rhythm with aortic systolic ejection murmur. Abdomen: Soft, nontender. Bowel sounds positive. No organomegaly. No masses or hernia. No rigidi ty or rebound. Extremities: No clubbing or cyanosis. Intact pulses. Skin: No rash. Neurologic: Alert, awake, oriented x3. No acute focal deficits appreciated. Investigations: Troponin still trending up, peaked this morning at 657 and his creatinine is 5.8, an d hemoglobin is 9.2, white blood cell count is 8.6. Assessment And Recommendations: 1.Acute coronary syndrome. The patient is having non-ST elevation myocardial infarction. Responded very well to sublingual nitroglycerin, put him on nitroglycerin patch. Agree with full anticoagulat ion with heparin and given the fact that our labor specialist is under construction, I will not be able to do coronary angiogram and this patient needs a coronary angiogram as soon as possible. I recommend tra nsferring to a facility with a capability of performing coronary angiogram. I discussed the case in details with Dr. Cueva. Continue baby aspirin and if nitroglycerin patch does not make him chest jenny n free completely, then I will recommend nitroglycerin drip. 2.End-stage renal disease, on hemodialysis. This will be carried through while in the hospital. 3.Hypertension. Blood pressure is acceptable, so nitroglycerin can be used as above. SR/MODL Voice ID: [id number] Report ID: [id number]
[2022-08-14] MEDS ORDERED: PANTOPRAZOLE 40MG TABLET PO SCH (16:00)
[2022-08-14] MEDS ORDERED: METOPROLOL TAR 25 MG TAB PO SCH (18:00)
[2022-08-14] MEDS ORDERED: TAMSULOSIN 0.4 MG SR CAP PO SCH (21:00)
[2022-08-14] MEDS ORDERED: ATORVASTATIN 40 MG TAB PO SCH (21:00)
[2022-08-14] MEDS: ZOLPIDEM TARTRATE 10 MG TABLET PO PRN (21:00)
[2022-08-14 21:13] VITALS: BP 102/47; TEMP 97.6
--- NOTE | 2022-08-15 06:51 | P.DS ---
Admission Date: 08/13/22 Discharge Date: 08/14/22 Disposition: TRANSFER TO [facility] Discharge Condition: FAIR Reason for Admission: Atypical chest pain Consultations: Cardiology - Dr. Momin Nephrology - Dr. Carrington Brief History of Present Illness: 76yo M, PMH: ESRD on HD, hypertension, hyperlipidemia, and GERD Patient presented to the ED for chest pain. He reported chest pain 2 hours during dialysis today. He reports Chest pain was substernal, did not radiate. He reports having PPM 2 weeks ago. He reports chest pain resolved with prn analgesics given in ER. EKG shows paced rhythm. Cardiology was consulted in ED Hospital Course: Problem List: Chest pain, NSTEMI ESRD on HD Hypertension Hyperlipidemia Anemia, chronic h/o GI Bleed h/o severe aortic stenosis h/o recent pacemaker placement Patient presented with chest pain. EKG without ST - t wave changes. Troponins were trended and continued to rise. He continued with intermittent chest pain. Cardiology and Nephrology were consulted. Patient was placed on heparin drip for NSTEMI. Dr. Momin, Cardiology, recommended cardiac catheterization. Unfortunately the catheter builder at this facility was not functioning, so the patient had to be transferred to [facility] for further evaluation. Physical Exam: GEN: Alert, oriented, NAD HEENT: Normal conjunctiva, sclera anicteric CV: Regular rate and rhythm, Paced, trace-1+ LLE edema, +IV/ systolic murmur Pulm: Nonlabored respirations on room air at rest ABD: Soft, nontender, nondistended MSK: Right BKA Neuro: Normal speech, normal affect Vital Signs/Physical Exam: Temp Pulse Resp BP Pulse Ox 97.6 F 63 18 102/47 L 93 08/14/22 20:00 08/14/22 20:00 08/14/22 20:00 08/14/22 20:00 08/14/22 20:00 Laboratory Data at Discharge: WBC 8.60 thou/uL (4.3-10.9) 08/14/22 03:16 Hgb 9.2 g/dL (13.6-17.9) L 08/14/22 03:16 Hct 27.0 % (39.6-49.0) L 08/14/22 03:16 Plt Count Cancelled 08/14/22 04:51 PT 11.1 SECONDS (9.5-12.5) 08/14/22 05:06 INR 1.01 08/14/22 05:06 APTT 153.2 SECONDS (24.3-36.9) H* 08/14/22 16:57 Sodium 138 mEq/L (136-145) 08/14/22 03:16 Potassium 5.2 mEq/L (3.5-5.1) H D 08/14/22 03:16 BUN 43 mg/dL (7-18) H 08/14/22 03:16 Creatinine 5.82 mg/dL (0.70-1.30) H 08/14/22 03:16 Glucose 91 mg/dL (74-106) 08/14/22 03:16 Phosphorus 5.2 mg/dL (2.5-4.9) H 08/14/22 03:16 Magnesium 2.6 mg/dL (1.6-2.4) H 08/14/22 03:16 Home Medications: Aspirin [Aspirin EC 81 MG] 81 mg PO DAILY 01/10/17 Celecoxib [Celebrex*] 100 mg PO DAILY 01/10/17 Fluticasone [Flovent Hfa 110*] 2 sprays IH BID 01/10/17 Niacin 500 mg PO DAILY 01/10/17 Pantoprazole [Protonix Tab*] 40 mg PO DAILY 01/10/17 Tamsulosin [Flomax*] 0.4 mg PO BEDTIME 01/10/17 Ubidecarenone/Vitamin E Mixed [Vgg23-Vpw E 200 mg-20 Unit Sfg] 1 each PO DAILY 01/10/17 Vit A/Vit C/Vit E/Zinc/Copper [Icaps Areds Formula Dr Tablet] 1 each PO DAILY 01/10/17 Zolpidem Tartrate [Ambien*] 10 mg PO BEDTIME PRN PRN 01/10/17 Losartan Potassium 25 mg PO DAILY 08/14/22 Metoprolol Tartrate 25 mg PO BID 08/14/22 Followup: AGUSTIN VELEZ [Primary Care Provider] - Time spent managing pt's care (in minutes): 45
[2022-08-15] MEDS ORDERED: ASPIRIN EC 81 MG TAB PO SCH (09:00)
[2022-08-15] MEDS ORDERED: PANTOPRAZOLE 40MG TABLET PO SCH (09:00)
--- NOTE | 2022-08-15 12:31 | EKG ---
Test Date: 2022-08-14 Test Time: 12:47:38 Upholstery Tech: CAROLINA MEASUREMENT RESULTS: Intervals: Rate: 76 IA: 196 QRSD: 164 QT: 462 QTc: 519 [place]: P: 41 IA: 196 QRS: -81 T: 85 INTERPRETIVE STATEMENTS: V Paced Rhythm Electronically Signed On 08-15-22 12:30:24 CDT by Palomo Momin
--- NOTE | 2022-08-15 17:10 | EKG ---
Test Date: 2022-08-13 Test Time: 17:27:07 Tax Intern: BETH MEASUREMENT RESULTS: Intervals: Rate: 81 TN: 170 QRSD: 186 QT: 486 QTc: 564 [place]: P: 73 TN: 170 QRS: -83 T: 84 INTERPRETIVE STATEMENTS: Iris palma Electronically Signed On 08-15-22 17:10:01 CDT by Palomo Momin
--- NOTE | 2022-08-16 17:00 | EKG ---
Test Date: 2022-08-13 Test Time: 22:04:34 Quality Control Coordinator: VIOLETTA MEASUREMENT RESULTS: Intervals: Rate: 77 TN: 174 QRSD: 188 QT: 510 QTc: 577 [place]: P: 57 TN: 174 QRS: -81 T: 80 INTERPRETIVE STATEMENTS: V paced rhythm Left axis deviation Nonspecific intraventricular block Possible Lateral infarct, age undetermined Inferior infarct, age undetermined Abnormal ECG Compared to ECG 08/13/2022 17:27:07 Left-axis deviation now present Myocardial infarct finding now present Electronically Signed On 08-16-22 17:00:24 CDT by Palomo Momin
== END 2022-08-14 22:35 | disposition short-term general hospital (02) | DRG 280 ==
LOC: ER 17:15 → ERHOLD 20:29 → 2ND 21:04
PROVIDERS: ADMIT Internal Medicine; ATTEND Hospitalist
PROC: 5A1D70Z Performance of Urinary Filtration, Intermittent, Less than 6 Hours Per Day (ICD-10-PCS; principal; 2022-08-14)
DX: I21.4 Non-ST elevation (NSTEMI) myocardial infarction (principal); N18.6 End stage renal disease; I13.2 Hypertensive heart and chronic kidney disease with heart failure and with stage 5 chronic kidney disease, or end stage renal disease; I50.30 Unspecified diastolic (congestive) heart failure; N25.81 Secondary hyperparathyroidism of renal origin; E87.3 Alkalosis; I25.10 Atherosclerotic heart disease of native coronary artery without angina pectoris; I35.0 Nonrheumatic aortic (valve) stenosis; D63.1 Anemia in chronic kidney disease; E78.5 Hyperlipidemia, unspecified; R01.1 Cardiac murmur, unspecified; K21.9 Gastro-esophageal reflux disease without esophagitis; E87.5 Hyperkalemia; G62.9 Polyneuropathy, unspecified; I73.9 Peripheral vascular disease, unspecified; I27.20 Pulmonary hypertension, unspecified; I95.3 Hypotension of hemodialysis; F32.A Depression, unspecified; F41.9 Anxiety disorder, unspecified; H35.30 Unspecified macular degeneration; Z99.2 Dependence on renal dialysis; Z95.0 Presence of cardiac pacemaker; Z95.5 Presence of coronary angioplasty implant and graft; Z87.19 Personal history of other diseases of the digestive system; Z89.511 Acquired absence of right leg below knee; Z79.02 Long term (current) use of antithrombotics/antiplatelets; Z79.82 Long term (current) use of aspirin; Z79.899 Other long term (current) drug therapy; Z88.0 Allergy status to penicillin; Z91.013 Allergy to seafood; Z91.041 Radiographic dye allergy status; Z82.49 Family history of ischemic heart disease and other diseases of the circulatory system
CPT/HCPCS: 36415; 71045; 80048; 81001; 82947; 83735; 84100; 84484; 85025; 85610; 85730; 90935; 93005; 96374; 96375; 99285; J1644; J2270; J2405

== ENCOUNTER 2022-09-08 06:39 | Inpatient (IN) | payer OTHER, BC ==
--- OUTSIDE RECORDS SUMMARY | 2022-09-08 07:22 | XMS REPORT | Continuity of Care Document ---
:1945 Author Organization [facility] t Address [address] [facility] [address] [place] [address] Care Team Providers Name Role Phone LAURYN ALISON MOORE Primary Care Physician Unavailable KENDRICK BAUGH Attending Clinician Unavailable ELEONORA JARAMILLO Attending Clinician Unavailable SHANTI FRENCH Attending Clinician Unavailable JASEN WALKER Attending Clinician Unavailable RASHAD HURTADO Attending Clinician Unavailable ANTOINETTE HARRISON Attending Clinician Unavailable REVA DIXON Attending Clinician Unavailable [id number] Attending Clinician Unavailable SHARON DIAZ IGNAZIO Attending Clinician Unavailable Provider, Undefined Attending Clinician Unavailable Sekou Curtis Attending Clinician Unavailable Chaya Villafuerte Kelcey Attending Clinician Unavailable NEERU MARLEY Attending Clinician Unavailable HOLDEN LEWIS Attending Clinician Unavailable José Luis Zaman MD Attending Clinician Rachele Zaman MD Attending Clinician Aleks Chou MD Attending Clinician ALEKS CHOU Attending Clinician Unavailable Paolo Barcenas MD Attending Clinician VESTA AGUILAR Attending Clinician Unavailable Vesta Aguilar Attending Clinician Neeru Marley MD Attending Clinician RADIOLOGY Attending Clinician Unavailable Radiology Attending Clinician Unavailable Doctor Unassigned, [place] Attending Clinician Unavailable Maddy Guo Attending Clinician Javad MOSQUERA, Arturo Gupta Attending Clinician [phone] Svetlana Cano MD Attending Clinician Daniel Rocha MD Attending Clinician Nicky Sandoval MA Attending Clinician Unavailable SANDRA GUO Attending Clinician Unavailable Usha MOSQUERA, Obi Almanza Attending Clinician Emilee Wooten MA Attending Clinician Unavailable Nolberto MOSQUERA, Suzanne Egan Attending Clinician [phone] Clint King DO Attending Clinician [phone] Kristopher Forman MD Attending Clinician Liu Mccloud Attending Clinician Clint Graham MD Attending Clinician Wanda Pedraza Attending Clinician Wanda PICKENS Attending Clinician Unavailable Liss Mosley MD Attending Clinician REVA DIXON Admitting Clinician Unavailable [id number] Admitting Clinician Unavailable SHARON DIAZ IGNAZIO Admitting [...] Type Policy Number Effective Date Expiration Date Pierre ly MEDICARE A B [id number] 2010 00:00:00 [place] [id number] 2010 OS 00:00:00 MCR MCR [id number] BCTX BCTI [id number] [place] [id number] 2010 2024 00:00:00 00:00:00 MEDICARE PART A \\T\\ [id number] 2010 B 00:00:00 BCBS TRADITIONAL [id number] 2010 00:00:00 Problems Condition Condition Condition Status Onset Resolution Last Treating Co mments Source Name Details Category Date Date Treatment Clinician Date Flash Flash Disease Active [facility]-12 [facility] edema edema 00:00: Medical 00 [place] Bradycardi Bradycardi Disease Active 2021-[address] [facility] GI BLEED GI BLEED Diagnosis Active 2021-022021-12-16 Memoria Active 02-15 05:39:00 l 12/16/2021 00:00: Carlton escoto [address] ACUTE ACUTE Diagnosis Active 2021-022021-12-27 Mem oria LOWER GI LOWER GI 02-15 21:46:00 l BLEEDING, BLEEDING, 00:00: Chinyere MOREL OF HX OF 00 COLONIC D COLONIC D Active 12/16/2021 [facility] Diverticul Diverticul Disease Active 2021-[address] itis itis 02-11 [facility]: Medical 00 [place] Lower GI Lower GI Disease Active 2021-02 [facility]29 [facility] Medical 00 [place] Hyperkalem Hyperkalem Disease Active M ethodi ia ia 06-13 00:00: Hospita 00 l Acute GI Acute GI Disease Active [facility]o di bleeding bleeding 06-12 00:00: Hospita 00 l LAB LAB Diagnosis Active 2020-11-14 Mem oria Active 10-01 15:58:00 l 10/01/2020 11:00: Carlton escoto [address] 3RD REPUBLICAN 3RD Diagnosis Active 2020-10-02 Memoria LIFE REPUBLICAN LIFE 10-01 05:21:00 l FLIGHT FLIGHT 00:00: Jimmy Active 00 10/01/2020 [facility] GI bleed GI bleed Disease Active [facility] di 8- st 00:00: Hospita 00 l Above knee [...] Added automatic ally from request for surgery [id number] End stage End stage Disease Active Met [...] st anemia anemia 00:00: Hospita 00 l Anemia, Anemia, Disease Active 2017-02 Methodi unspecifie [...] nter joint joint Illness Illness Diagnosis 2021-12-25 Chela (finding) (finding) 23:24:01 l Diagnosis [place] 12/25/2021 [facility] Abdominal Problem Resolve 2020-12-31 M emoria pain Abdominal d 22:26:03 l (finding) pain [place] (finding) Resolved Problem 12/31/2020 [facility] Chronic Chronic Problem Resolve 2020-12-31 M emoria kidney kidney d 22:26:03 l disease disease [place] stage 3 stage 3 (disorder) (disorder) Resolved Problem 12/31/2020 [facility] Degenerati Degenerat Problem Resolve 2020-12-31 Memoria ve emmanuel d 22:26:03 l disorder disorder Carlton n of macula of macula (disorder) (disorder) Resolved Problem 12/31/2020 RT EYE [facility] Procedure Procedure Problem Resolve 2020-12-31 Memoria on heart on heart d 22:26:03 l (procedure (procedure He rmann ) ) Resolved Problem 12/31/2020 STENT PLACEMENT [facility] Insomnia Insomnia Problem Resolve 2020-12-31 Memoria (disorder) (disorder) d 22:26:03 l Resolved Jimmy Problem 12/31/2020 [facility] Urinary Urinary Problem Resolve 2020-12-31 M emoria tract tract d 22:26:03 l infectious infectious He rmann disease disease (disorder) (disorder) Resolved Problem 12/31/2020 [facility] Atheroscle Atheroscl Problem Active 2020-12-31 Memoria rosis of erosis of 22:26:03 l coronary coronary Carlton n artery artery (disorder) (disorder) Active Problem 12/31/2020 Data migrated from [employer] on 07/10/14. [facility] Gastroesop Gastroeso Problem Active 2020-12-31 Memoria hageal phageal 22:26:03 l reflux reflux Jimmy disease disease (disorder) (disorder) Active Problem 12/31/2020 Data migrated from [employer] on 07/10/14. Medical Group Benign Benign Problem Active 2021-12-25 Evert dora prostatic prostatic 23:24:01 l hyperplasi hyperplasi He rmann a a (disorder) (disorder) Active [facility] Problem Active 2021-12-25 Me moria infectious infectious 23:24:01 l disease disease [place] (disorder) (disorder) Active Problem [facility]/25[facility]2021 [facility] Coronary Coronary Problem Active 2021-12-25 Memoria arterioscl arterioscl 23:24:01 l erosis erosis Jimmy (disorder) (disorder) Active [facility] Diabetes Diabetes Problem Active 2021-12-25 Memoria mellitus mellitus 23:24:01 l type 2 type 2 [place] (disorder) (disorder) Active Problem 12/25/2021 Automatica lly added by Discern Expert with order of Add Problem Diabetes Type II on December 01, 2018 14:23:39 CDT with order ID: [id number] 9.0 entered by Lida Mukherjee. Medical [facility] Dyslipidem Dyslipide Problem Active 2021-12-25 Memoria ia liseth 23:24:01 l (disorder) (disorder) He rmann Active Problem 12/25/2021 [facility] History of History Problem Active 2021-12-25 Memoria colectomy of 23:24:01 l (situation colectomy Her garcia ) (situation ) Active Problem 12/25/2021 Medical [facility] Hypertensi Hypertens Problem Active 2021-12-25 Memoria ve emmanuel 23:24:01 l disorder, disorder, Herm jennie systemic systemic arterial arterial (disorder) (disorder) Active Problem 12/25/2021 Data migrated from [facility] on 07/10/14. Medical [facility] Obesity Obesity Problem Active 2021-12-25 Me moria (disorder) (disorder) 23:24:01 l Active Jimmy Problem 12/25/2021 [facility] Prosthetic Prostheti Problem Active 2021-12-25 Memoria joint c joint 23:24:01 l infection infection Herm jennie (disorder) (disorder) Active Problem 12/25/2021 Medical [facility] ILLNESS, ILLNESS, Diagnosis Active 2021-12-16 Memoria UNSPECIFIE UNSPECIFIE 05:39:00 l D D Active [place] [facility] GASTROINTE GASTROINT Diagnosis Active 2021-12-27 Memoria STINAL ESTINAL 21:46:00 l HEMORRHAGE HEMORRHAGE He rmann , , UNSPECIFIE UNSPECIFIE D D Active [facility] PERSONAL PERSONAL Diagnosis Active 2021-12-27 Memoria HISTORY OF HISTORY OF 21:46:00 l OTHER OTHER [place] DISEASES DISEASES OF TH OF TH Active [facility] Allergies, Adverse Reactions, Alerts Allergy Allergy Status Severity Reaction(s) Onset Inactive Treating Comm ents Source Name Type Date Date Clinician EZETIMIB Allergy Active Other [facility] 00:[facility]: Medical [address] [place] [address] No Known DA Active U 2020-0 [facility] Allergie 05-13 [place] [facility] 00:[facility]: d 00 [facility] No Known DA Active U [facility] Allergie 05-13 [place] [facility] 00:00: d 00 [facility] Iodine FA Active ME DIARRHEA [facility] and 05-13 [place] Iodide 00:00: d Containi 00 [facility] Produc shellfis FA Active SV SWELLING 2020-0 [facility] h 4 [place] derived 00:00: d 00 [facility] Iodine FA Active ME [facility] and 05-13 Clear Iodide 00:00: [place] Containi 00 [facility] shellfis FA Active SV 2020-0 [facility] h 05-13 Clear derived 00:00: [place] [address] [facility] PINICILL DA Active ME ITCHING [facility] IN 05-13 Clear 00:00: Smith 00 [facility] Iodine Propensi Active Rash 2020-0 Univers ty to 9-30 ity of adverse 00:00: [place] reaction 00 [facility] Penicill Propensi Active Anaphylaxis 2020-0 U nivers ins ty to 9-30 ity of adverse 00:00: [place] reaction 00 [facility] IODINE DRUG Active Rash 2020-0 Univers INGREDI 9-30 ity of 00:00: [place] 00 [facility] PENICILL Drug Active Anaphylaxis 2020-0 Uni vers INS Class 9-30 ity of 00:00: [place] 00 [facility] SHELLFIS DRUG Active Diarrhea 2020-0 Univer s H INGREDI 9-30 ity of DERIVED 00:00: [place] 00 [facility] Shellfis Propensi Active Nausea 2020-0 Univer s h ty to and/or 9-30 ity of Derived adverse Vomiting 00:00: [place] reaction 00 [facility] Penicill Propensi Active Anaphylaxis 2020-0 U nivers ins ty to 9-30 ity of adverse 00:00: [place] reaction 00 [facility] Eicosape Propensi Active [facility] ntaenoic ty to 8-13 [facility] Acid adverse 00:00: Medical reaction [address] [place] [address] EICOSAPE Allergy Active [facility] NTAENOIC 8-13 ACID [...] Low Rash 2015-02 [facility] 0-20 00:00: 00 Atorvast Propensi Active [facility] atin ty to 2-24 [facility] adverse 00:00: Medical reaction 00 Center s ATORVAST Allergy Active 0 [facility] ATIN 2-24 00:00: 00 Penicill Propensi Active Hives, 0 unknown [facility] ins ty to Anaphylaxis 5-29 [facility] adverse 00:00: Medical reaction 00 Center s Shellfis Propensi Active Diarrhea, [address] [facility] h ty to Nausea And 5-29 [facility] Containi adverse Vomiting 00:00: Medic al ng reaction 00 Center Products s Penicill Propensi Active Hives, 0 unknown [facility] ins ty to Anaphylaxis 5-29 [facility] adverse 00:00: Medical reaction 00 Center s Shellfis Propensi Active Diarrhea, [address] [facility] [facility] ty to Nausea And 5-29 [facility] Containi adverse Vomiting 00:00: Medic al ng reaction 00 Center Products s PENICILL Allergy Active High Hives 2014-0 [facility] INS 5-29 00:00: 00 SHELLFIS Allergy Active Diarrhea 2014-0 [facility] H 5-29 CONTAINI 00:00: NG 00 PRODUCTS penicill penicill Active Memori a ins<sup> ins<sup> l 1</sup> 1</sup> Jimmy iodine<s iodine<s Active Memori a up>2</lee up>2</lee l p> p> Jimmy Family History Family Member Diagnosis Comments Start Date Stop Date Source Natural father Heart disease [facility] Natural mother [facility] Social History Social Habit Start Date Stop Date Quantity Comments Source History [facility] Gender identity [facility] Sexual orientation [facility] History of Social 2022-04-17 2022-04-[address] function 00:00:00 00:00:00 Hospital History [facility] 2022-02-11 2022-02-[address] [facility] Transport Med 00:00:00 00:00:[address] [facility] 2022-02-11 2022-02-[address] [facility] Housing Unable to 00:00:00 00:00:00 Medical Center Pay History [facility] 2022-02-11 2022-02-[address] [facility] Housing Places 00:00:00 00:00:00 Medical Ce nter Lived History [facility] 2022-02-11 2022-02-[address] [facility] Housing Homeless 00:00:00 00:00:00 Medical Center Last Year Exposure to 2021-11-29 2021-12-[address] [facility] SARS-CoV-2 (event) 00:00:00 16:30:00 Medica Center Alcohol intake 2021-06-13 2021-06-13 Current Baptism 00:00:00 00:00:00 non-drinker of Hospital alcohol (finding) Tobacco use and 2017-08-06 2017-08-06 Smokeless Baptism exposure 00:00:00 00:00:00 tobacco non-user Hospital Social History 2015-01-31 2015-01-31 [facility] 21:49:01 21:49:01 Sex [birth year] Baptism 00:00:00 00:00:00 Hospital Smoking Status Start Date Stop Date Source Tobacco smoking status [facility] Tobacco smoking consumption [facility] Medical unknown Branch Medications Ordered Filled Start Stop Current Ordering Indication Dosage Frequency Signature Comments Components Source Medication Medication Date Date Medication? Clinician (SIG) Name Name amLODIPine 2023- No 5mg QD Take [address] (NORVASC) 5 1-04 01-04 tablet (5 Marli kes MG tablet 00:00: 23:59 mg total) Me dical 00 :00 by mouth Center daily. ferrous 0 2023- No 325mg QD Take [address] sulfate 325 02-14-04 tablet [facility] (65 FE) MG 00:00: 23:59 (325 mg Med ical tablet 00 :00 total) by Center mouth daily. COLESEVELAM Yes 3.75g Take 3.[address] HCL 1-03 g by mouth [facility] (WELCHOL 13:01: 2 (two) Medica l ORAL) 52 times Center daily with breakfast and dinner . zolpidem Yes 10mg Take [address] (AMBIEN) 10 03 by mouth Luke s mg tablet 13:01: every Medical 52 night as Center needed for Insomnia. losartan Yes 50mg QD Take [address] (COZAAR) 50 03 by mouth Luke s MG tablet 13:01: daily. Medica l 52 Center sertraline Yes 50mg Take [address] (ZOLOFT) 50 03 by mouth. Coco es MG tablet 13:01: Medical 52 Center aspirin 81 Yes 81mg QD Take [address] MG EC 03 by mouth [facility] tablet 13:01: daily. Medical 52 Center B complex Yes 1{capsu Take [address] 11-folic-C- 03 le} capsule by Marli guillaume biot-zinc 13:01: [...] al 24 hr 52 Center capsule mINOCYCLine 0 Yes 100mg Take [address] [facility] (MINOCIN,DY 03 capsule [facility] NACIN) 100 00:00: (100 mg Medi raman MG capsule 00 total) by Cent er mouth every 12 (twelve) hours. acetaminoph 0 2022- No 650mg Take [address] en 1-03 12-29 tablets [facility] (TYLENOL) 00:00: 23:59 (650 mg Medi raman 325 MG 00 :00 total) by Center tablet mouth every 6 (six) hours as needed for up to 360 days. DULoxetine 2021-02 60mg QD Take [address] (CYMBALTA) 02-10 by mouth Luke s 60 MG 23:28: 00:00 daily. Medical capsule 21 :00 [place] coenzyme 2021-02 1 po qd [facility] t Q10 100 mg 02-10 [facility] Chew 23:28: 00:00 Medical :00 [place] niacin 500 2021-[address] [address] MG CR 02-10 [facility] capsule 23:28: 00:00 Medical :00 [place] furosemide 2021-02 40mg Take [address] (LASIX) 40 02-10 by mouth. Coco es MG tablet 23:28: 00:00 Medical :00 [place] tramadol 50 2021-02 Yes 50 mg = 1 M emoria mg oral 1-11 tab, PO, l tablet 21:50: Q12H, PRN Carl[place] n 00 Pain Score 7-10, # 12 tab, 0 Refill(s), Pharmacy: [facility] [id number], 172.72, cm, 12/16/21 5:50:00 CDT, Height, 86.6, kg, 12/16/21 5:50:00 CDT, Weight tramadol 50 2021-02 Yes 50 mg = 1 M emoria mg oral 1-11 tab, PO, l tablet 21:50: Q12H, PRN Carl[place] n 00 Pain Score 7-10, # 12 tab, 0 Refill(s), Pharmacy: [facility] [id number], 172.72, cm, 12/16/21 5:50:00 CDT, Height, 86.6, kg, 12/16/21 5:50:00 CDT, Weight tramadol 50 2021-02 Yes 50 mg = 1 M emoria mg oral 1-11 tab, PO, l tablet 21:50: Q12H, PRN [place] n 00 Pain Score 7-10, # 12 tab, 0 Refill(s), Pharmacy: [facility] [id number], 172.72, cm, 12/16/21 5:50:00 CDT, Height, 86.6, kg, 12/16/21 5:50:00 CDT, Weight tramadol 2021-02 Yes 50 mg = 1 M emoria mg oral 1-11 tab, PO, l tablet 21:50: Q12H, PRN [place] n 00 Pain Score 7-10, # 12 tab, 0 Refill(s), Pharmacy: [facility] [id number], 172.72, cm, 12/16/21 5:50:00 CDT, Height, 86.6, kg, 12/16/21 5:50:00 CDT, Weight tramadol 2021-02 Yes 50 mg = 1 M emoria mg oral 1-11 tab, PO, l tablet 21:50: Q12H, PRN [place] n 00 Pain Score 7-10, # 12 tab, 0 Refill(s), Pharmacy: [facility] [id number], 172.72, cm, 12/16/21 5:50:00 CDT, Height, 86.6, kg, 12/16/21 5:50:00 CDT, Weight tramadol 2021-02 Yes 50 mg = 1 M emoria mg oral 1-11 tab, PO, l tablet 21:50: Q12H, PRN [place] n 00 Pain Score 7-10, # 12 tab, 0 Refill(s), Pharmacy: [facility] [id number], 172.72, cm, 12/16/21 5:50:00 CDT, Height, 86.6, kg, 12/16/21 5:50:00 CDT, Weight tramadol 2021-02 Yes 50 mg = 1 M emoria mg oral 1-11 tab, PO, l tablet 21:50: Q12H, PRN [place] n 00 Pain Score 7-10, # 12 tab, 0 Refill(s), Pharmacy: [facility] [id number], 172.72, cm, 12/16/21 5:50:00 CDT, Height, 86.6, kg, 12/16/21 5:50:00 CDT, Weight tramadol 2021-02 Yes 50 mg = 1 M emoria mg oral 1-11 tab, PO, l tablet 21:50: Q12H, PRN [place] n 00 Pain Score 7-10, # 12 tab, 0 Refill(s), Pharmacy: [facility] [id number], 172.72, cm, 12/16/21 5:50:00 CDT, Height, 86.6, kg, 12/16/21 5:50:00 CDT, Weight tramadol 50 2021-02 Yes 50 mg = 1 M emoria mg oral 1-11 tab, PO, l tablet 21:50: Q12H, PRN [place] n 00 Pain Score 7-10, # 12 tab, 0 Refill(s), Pharmacy: [facility] [id number], 172.72, cm, 12/16/21 5:50:00 CDT, Height, 86.6, kg, 12/16/21 5:50:00 CDT, Weight tramadol 50 2021-02 Yes 50 mg = 1 M emoria mg oral 1-11 tab, PO, l tablet 21:50: Q12H, PRN [place] n 00 Pain Score 7-10, # 12 tab, 0 Refill(s), Pharmacy: [facility] [id number], 172.72, cm, 12/16/21 5:50:00 CDT, Height, 86.6, kg, 12/16/21 5:50:00 CDT, Weight tramadol 50 2021-02 Yes 50 mg = 1 M emoria mg oral 1-11 tab, PO, l tablet 21:50: Q12H, PRN [place] n 00 Pain Score 7-10, # 12 tab, 0 Refill(s), Pharmacy: [facility] [id number], 172.72, cm, 12/16/21 5:50:00 CDT, Height, 86.6, kg, 12/16/21 5:50:00 CDT, Weight tramadol 50 2021-02 Yes 50 mg = 1 M emoria mg oral 1-11 tab, PO, l tablet 21:50: Q12H, PRN [place] n 00 Pain Score 7-10, # 12 tab, 0 Refill(s), Pharmacy: [facility] [id number], 172.72, cm, 12/16/21 5:50:00 CDT, Height, 86.6, kg, 12/16/21 5:50:00 CDT, Weight tramadol 50 2021-02 Yes 50 mg = 1 M emoria mg oral 1-11 tab, PO, l tablet 21:50: Q12H, PRN [place] n 00 Pain Score 7-10, # 12 tab, 0 Refill(s), Pharmacy: [facility] [id number], 172.72, cm, 12/16/21 5:50:00 CDT, Height, 86.6, kg, 12/16/21 5:50:00 CDT, Weight tramadol 50 2021-02 Yes 50 mg = 1 M emoria mg oral 1-11 tab, PO, l tablet 21:50: Q12H, PRN [place] n 00 Pain Score 7-10, # 12 tab, 0 Refill(s), Pharmacy: [facility] [id number], 172.72, cm, 12/16/21 5:50:00 CDT, Height, 86.6, kg, 12/16/21 5:50:00 CDT, Weight tramadol 50 2021-02 Yes 50 mg = 1 M emoria mg oral 1-11 tab, PO, l tablet 21:50: Q12H, PRN [place] n 00 Pain Score 7-10, # 12 tab, 0 Refill(s), Pharmacy: [facility] [id number], 172.72, cm, 12/16/21 5:50:00 CDT, Height, 86.6, kg, 12/16/21 5:50:00 CDT, Weight tramadol 50 2021-02 Yes 50 mg = 1 M emoria mg oral 1-11 tab, PO, l tablet 21:50: Q12H, PRN [place] n 00 Pain Score 7-10, # 12 tab, 0 Refill(s), Pharmacy: [facility] [id number], 172.72, cm, 12/16/21 5:50:00 CDT, Height, 86.6, kg, 12/16/21 5:50:00 CDT, Weight hydrocortis 2021-02 Yes 25 mg = 1 M emoria one 25 mg 1-11 supp, [place], l rectal 21:49: BID, PRN [place] suppository 00 Hemorrhoid s, # 24 supp, 0 Refill(s), Pharmacy: [facility] [id number], 172.72, cm, 12/16/21 5:50:00 CDT, Height, 86.6, kg, 12/16/21 5:50:00 CDT, Weight polyethylen 2021-02 Yes 17 gm, PO, Memoria e glycol 1-11 BID, # 255 l 3350 oral 21:49: gm, 0 [place] powder for 00 Refill(s), reconstitut Pharmacy: [facility] [id number], 172.72, cm, 12/16/21 5:50:00 CDT, Height, 86.6, kg, 12/16/21 5:50:00 CDT, Weight hydrocortis 2021-02 Yes 25 mg = 1 M emoria one 25 mg 1-11 supp, [place], l rectal 21:49: BID, PRN [place] suppository 00 Hemorrhoid s, # 24 supp, 0 Refill(s), Pharmacy: [facility] [id number], 172.72, cm, 12/16/21 5:50:00 CDT, Height, 86.6, kg, 12/16/21 5:50:00 CDT, Weight polyethylen 2021-02 Yes 17 gm, PO, Memoria e glycol 1-11 BID, # 255 l 3350 oral 21:49: gm, 0 [place] powder for 00 Refill(s), reconstitut Pharmacy: [facility] [id number], 172.72, cm, 12/16/21 5:50:00 CDT, Height, 86.6, kg, 12/16/21 5:50:00 CDT, Weight hydrocortis 2021-02 Yes 25 mg = 1 M emoria one 25 mg 1-11 supp, [place], l rectal 21:49: BID, PRN Jimmy suppository 00 Hemorrhoid s, # 24 supp, 0 Refill(s), Pharmacy: [facility] [id number], 172.72, cm, 12/16/21 5:50:00 CDT, Height, 86.6, kg, 12/16/21 5:50:00 CDT, Weight polyethylen 2021-02 Yes 17 gm, PO, Memoria e glycol 1-11 BID, # 255 l 3350 oral 21:49: gm, 0 [place] powder for 00 Refill(s), reconstitut Pharmacy: [facility] [id number], 172.72, cm, 12/16/21 5:50:00 CDT, Height, 86.6, kg, 12/16/21 5:50:00 CDT, Weight hydrocortis 2021-02 Yes 25 mg = 1 M emoria one 25 mg 1-11 supp, [place], l rectal 21:49: BID, PRN Jimmy suppository 00 Hemorrhoid s, # 24 supp, 0 Refill(s), Pharmacy: [facility] [id number], 172.72, cm, 12/16/21 5:50:00 CDT, Height, 86.6, kg, 12/16/21 5:50:00 CDT, Weight polyethylen 2021-02 Yes 17 gm, PO, Memoria e glycol 1-11 BID, # 255 l 3350 oral 21:49: gm, 0 [place] powder for 00 Refill(s), reconstitut Pharmacy: [facility] [id number], 172.72, cm, 12/16/21 5:50:00 CDT, Height, 86.6, kg, 12/16/21 5:50:00 CDT, Weight hydrocortis 2021-02 Yes 25 mg = 1 M emoria one 25 mg 1-11 supp, [place], l rectal 21:49: BID, PRN [place] suppository 00 Hemorrhoid s, # 24 supp, 0 Refill(s), Pharmacy: [facility] [id number], 172.72, cm, 12/16/21 5:50:00 CDT, Height, 86.6, kg, 12/16/21 5:50:00 CDT, Weight polyethylen 2021-02 Yes 17 gm, PO, Memoria e glycol 1-11 BID, # 255 l 3350 oral 21:49: gm, 0 [place] powder for 00 Refill(s), reconstitut Pharmacy: [facility] [id number], 172.72, cm, 12/16/21 5:50:00 CDT, Height, 86.6, kg, 12/16/21 5:50:00 CDT, Weight hydrocortis 2021-02 Yes 25 mg = 1 M emoria one 25 mg 1-11 supp, [place], l rectal 21:49: BID, PRN [place] suppository 00 Hemorrhoid s, # 24 supp, 0 Refill(s), Pharmacy: [facility] [id number], 172.72, cm, 12/16/21 5:50:00 CDT, Height, 86.6, kg, 12/16/21 5:50:00 CDT, Weight polyethylen 2021-02 Yes 17 gm, PO, Memoria e glycol 1-11 BID, # 255 l 3350 oral 21:49: gm, 0 [place] powder for 00 Refill(s), reconstitut Pharmacy: [facility] [id number], 172.72, cm, 12/16/21 5:50:00 CDT, Height, 86.6, kg, 12/16/21 5:50:00 CDT, Weight hydrocortis 2021-02 Yes 25 mg = 1 M emoria one 25 mg 1-11 supp, [place], l rectal 21:49: BID, PRN Jimmy suppository 00 Hemorrhoid s, # 24 supp, 0 Refill(s), Pharmacy: [facility] [id number], 172.72, cm, 12/16/21 5:50:00 CDT, Height, 86.6, kg, 12/16/21 5:50:00 CDT, Weight polyethylen 2021-02 Yes 17 gm, PO, Memoria e glycol 1-11 BID, # 255 l 3350 oral 21:49: gm, 0 [place] powder for 00 Refill(s), reconstitut Pharmacy: [facility] [id number], 172.72, cm, 12/16/21 5:50:00 CDT, Height, 86.6, kg, 12/16/21 5:50:00 CDT, Weight hydrocortis 2021-02 Yes 25 mg = 1 M emoria one 25 mg 1-11 supp, [place], l rectal 21:49: BID, PRN Jimmy suppository 00 Hemorrhoid s, # 24 supp, 0 Refill(s), Pharmacy: [facility] [id number], 172.72, cm, 12/16/21 5:50:00 CDT, Height, 86.6, kg, 12/16/21 5:50:00 CDT, Weight polyethylen 2021-02 Yes 17 gm, PO, Memoria e glycol 1-11 BID, # 255 l 3350 oral 21:49: gm, 0 Jimmy powder for 00 Refill(s), [facility]ut [facility] [facility] [id number], 172.72, cm, 12/16/21 5:50:00 CDT, Height, 86.6, kg, 12/16/21 5:50:00 CDT, Weight hydrocortis 2021-02 Yes 25 mg = 1 M emoria one 25 mg 1-11 supp, [place], l rectal 21:49: BID, PRN Jimmy suppository 00 Hemorrhoid s, # 24 supp, 0 Refill(s), Pharmacy: [facility] [id number], 172.72, cm, 12/16/21 5:50:00 CDT, Height, 86.6, kg, 12/16/21 5:50:00 CDT, Weight polyethylen 2021-02 Yes 17 gm, PO, Memoria e glycol 1-11 BID, # 255 l 3350 oral 21:49: gm, 0 Jimmy powder for 00 Refill(s), reconstitut Pharmacy: [facility] [id number], 172.72, cm, 12/16/21 5:50:00 CDT, Height, 86.6, kg, 12/16/21 5:50:00 CDT, Weight hydrocortis 2021-02 Yes 25 mg = 1 M emoria one 25 mg 1-11 supp, [place], l rectal 21:49: BID, PRN Jimmy suppository 00 Hemorrhoid s, # 24 supp, 0 Refill(s), Pharmacy: [facility] [id number], 172.72, cm, 12/16/21 5:50:00 CDT, Height, 86.6, kg, 12/16/21 5:50:00 CDT, Weight polyethylen 2021-02 Yes 17 gm, PO, Memoria e glycol 1-11 BID, # 255 l 3350 oral 21:49: gm, 0 [place] powder for 00 Refill(s), reconstitut Pharmacy: [facility] [id number], 172.72, cm, 12/16/21 5:50:00 CDT, Height, 86.6, kg, 12/16/21 5:50:00 CDT, Weight hydrocortis 2021-02 Yes 25 mg = 1 M emoria one 25 mg 1-11 supp, [place], l rectal 21:49: BID, PRN Jimmy suppository 00 Hemorrhoid s, # 24 supp, 0 Refill(s), Pharmacy: [facility] [id number], 172.72, cm, 12/16/21 5:50:00 CDT, Height, 86.6, kg, 12/16/21 5:50:00 CDT, Weight polyethylen 2021-02 Yes 17 gm, PO, Memoria e glycol 1-11 BID, # 255 l 3350 oral 21:49: gm, 0 [place] powder for 00 Refill(s), reconstitut Pharmacy: [facility] [id number], 172.72, cm, 12/16/21 5:50:00 CDT, Height, 86.6, kg, 12/16/21 5:50:00 CDT, Weight hydrocortis 2021-02 Yes 25 mg = 1 M emoria one 25 mg 1-11 supp, [place], l rectal 21:49: BID, PRN [place] suppository 00 Hemorrhoid s, # 24 supp, 0 Refill(s), Pharmacy: [facility] [id number], 172.72, cm, 12/16/21 5:50:00 CDT, Height, 86.6, kg, 12/16/21 5:50:00 CDT, Weight polyethylen 2021-02 Yes 17 gm, PO, Memoria e glycol 1-11 BID, # 255 l 3350 oral 21:49: gm, 0 Jimmy powder for 00 Refill(s), reconstitut Pharmacy: [facility] [id number], 172.72, cm, 12/16/21 5:50:00 CDT, Height, 86.6, kg, 12/16/21 5:50:00 CDT, Weight hydrocortis 2021-02 Yes 25 mg = 1 M emoria one 25 mg 1-11 supp, [place], l rectal 21:49: BID, PRN Jimmy suppository 00 Hemorrhoid s, # 24 supp, 0 Refill(s), Pharmacy: [facility] [id number], 172.72, cm, 12/16/21 5:50:00 CDT, Height, 86.6, kg, 12/16/21 5:50:00 CDT, Weight polyethylen 2021-02 Yes 17 gm, PO, Memoria e glycol 1-11 BID, # 255 l 3350 oral 21:49: gm, 0 [place] powder for 00 Refill(s), reconstitut Pharmacy: [facility] [id number], 172.72, cm, 12/16/21 5:50:00 CDT, Height, 86.6, kg, 12/16/21 5:50:00 CDT, Weight hydrocortis 2021-02 Yes 25 mg = 1 M emoria one 25 mg 1-11 supp, [place], l rectal 21:49: BID, PRN Jimmy suppository 00 Hemorrhoid s, # 24 supp, 0 Refill(s), Pharmacy: [facility] [id number], 172.72, cm, 12/16/21 5:50:00 CDT, Height, 86.6, kg, 12/16/21 5:50:00 CDT, Weight polyethylen 2021-02 Yes 17 gm, PO, Memoria e glycol 1-11 BID, # 255 l 3350 oral 21:49: gm, 0 [place] powder for 00 Refill(s), reconstitut Pharmacy: [facility] [id number], 172.72, cm, 12/16/21 5:50:00 CDT, Height, 86.6, kg, 12/16/21 5:50:00 CDT, Weight hydrocortis 2021-02 Yes 25 mg = 1 M emoria one 25 mg 1-11 supp, [place], l rectal 21:49: BID, PRN [place] suppository 00 Hemorrhoid s, # 24 supp, 0 Refill(s), Pharmacy: [facility] [id number], 172.72, cm, 12/16/21 5:50:00 CDT, Height, 86.6, kg, 12/16/21 5:50:00 CDT, Weight polyethylen 2021-02 Yes 17 gm, PO, Memoria e glycol 1-11 BID, # 255 l 3350 oral 21:49: gm, 0 Jimmy powder for 00 Refill(s), reconstitut Pharmacy: [facility] [id number], 172.72, cm, 12/16/21 5:50:00 CDT, Height, 86.6, kg, 12/16/21 5:50:00 CDT, Weight hydrocortis 2021-02 Yes 25 mg = 1 M emoria one 25 mg 1-11 supp, [place], l rectal 21:49: BID, PRN Jimmy suppository 00 Hemorrhoid s, # 24 supp, 0 Refill(s), Pharmacy: [facility] [id number], 172.72, cm, 12/16/21 5:50:00 CDT, Height, 86.6, kg, 12/16/21 5:50:00 CDT, Weight polyethylen 2021-02 Yes 17 gm, PO, Memoria e glycol 1-11 BID, # 255 l 3350 oral 21:49: gm, 0 [place] powder for 00 Refill(s), reconstitut Pharmacy: [facility] [id number], 172.72, cm, 12/16/21 5:50:00 CDT, Height, 86.6, kg, 12/16/21 5:50:00 CDT, Weight Flagyl 500 2021-02 Yes 500 mg = 1 M emoria mg oral 1-11 tab, PO, l tablet 21:48: TID, X 8 [place] 00 day, # 24 tab, 0 Refill(s), Pharmacy: [facility] [id number], 172.72, cm, 12/16/21 5:50:00 CDT, Height, 86.6, kg, 12/16/21 5:50:00 CDT, Weight docusate 2021-02 Yes 100 mg = 1 Mem oria sodium 100 1-11 cap, PO, l mg oral 21:48: Daily, # [place] n capsule 00 30 cap, 0 Refill(s), Pharmacy: [facility] [id number], 172.72, cm, 12/16/21 5:50:00 CDT, Height, 86.6, kg, 12/16/21 5:50:00 CDT, Weight Flagyl 500 2021-02 Yes 500 mg = 1 M emoria mg oral 1-11 tab, PO, l tablet 21:48: TID, X 8 [place] 00 day, # 24 tab, 0 Refill(s), Pharmacy: [facility] [id number], 172.72, cm, 12/16/21 5:50:00 CDT, Height, 86.6, kg, 12/16/21 5:50:00 CDT, Weight docusate 2021-02 Yes 100 mg = 1 Mem oria sodium 100 1-11 cap, PO, l mg oral 21:48: Daily, # [place] n capsule 00 30 cap, 0 Refill(s), Pharmacy: [facility] [id number], 172.72, cm, 12/16/21 5:50:00 CDT, Height, 86.6, kg, 12/16/21 5:50:00 CDT, Weight Flagyl 500 2021-02 Yes 500 mg = 1 M emoria mg oral 1-11 tab, PO, l tablet 21:48: TID, X 8 [place] 00 day, # 24 tab, 0 Refill(s), Pharmacy: [facility] [id number], 172.72, cm, 12/16/21 5:50:00 CDT, Height, 86.6, kg, 12/16/21 5:50:00 CDT, Weight docusate 2021-02 Yes 100 mg = 1 Mem oria sodium 100 1-11 cap, PO, l mg oral 21:48: Daily, # [place] n capsule 00 30 cap, 0 Refill(s), Pharmacy: [facility] [id number], 172.72, cm, 12/16/21 5:50:00 CDT, Height, 86.6, kg, 12/16/21 5:50:00 CDT, Weight Flagyl 500 2021-02 Yes 500 mg = 1 M emoria mg oral 1-11 tab, PO, l tablet 21:48: TID, X 8 [place] 00 day, # 24 tab, 0 Refill(s), Pharmacy: [facility] [id number], 172.72, cm, 12/16/21 5:50:00 CDT, Height, 86.6, kg, 12/16/21 5:50:00 CDT, Weight docusate 2021-02 Yes 100 mg = 1 Mem oria sodium 100 1-11 cap, PO, l mg oral 21:48: Daily, # [place] n capsule 00 30 cap, 0 Refill(s), Pharmacy: [facility] [id number], 172.72, cm, 12/16/21 5:50:00 CDT, Height, 86.6, kg, 12/16/21 5:50:00 CDT, Weight Flagyl 500 2021-02 Yes 500 mg = 1 M emoria mg oral 1-11 tab, PO, l tablet 21:48: TID, X 8 Jimmy 00 day, # 24 tab, 0 Refill(s), Pharmacy: [facility] [id number], 172.72, cm, 12/16/21 5:50:00 CDT, Height, 86.6, kg, 12/16/21 5:50:00 CDT, Weight docusate 2021-02 Yes 100 mg = 1 Mem oria sodium 100 1-11 cap, PO, l mg oral 21:48: Daily, # [place] n capsule 00 30 cap, 0 Refill(s), Pharmacy: [facility] [id number], 172.72, cm, 12/16/21 5:50:00 CDT, Height, 86.6, kg, 12/16/21 5:50:00 CDT, Weight Flagyl 500 2021-02 Yes 500 mg = 1 M emoria mg oral 1-11 tab, PO, l tablet 21:48: TID, X 8 Jimmy 00 day, # 24 tab, 0 Refill(s), Pharmacy: [facility] [id number], 172.72, cm, 12/16/21 5:50:00 CDT, Height, 86.6, kg, 12/16/21 5:50:00 CDT, Weight docusate 2021-02 Yes 100 mg = 1 Mem oria sodium 100 1-11 cap, PO, l mg oral 21:48: Daily, # [place] n capsule 00 30 cap, 0 Refill(s), Pharmacy: [facility] [id number], 172.72, cm, 12/16/21 5:50:00 CDT, Height, 86.6, kg, 12/16/21 5:50:00 CDT, Weight Flagyl 500 2021-02 Yes 500 mg = 1 M emoria mg oral 1-11 tab, PO, l tablet 21:48: TID, X 8 Jimmy 00 day, # 24 tab, 0 Refill(s), Pharmacy: [facility] [id number], 172.72, cm, 12/16/21 5:50:00 CDT, Height, 86.6, kg, 12/16/21 5:50:00 CDT, Weight docusate 2021-02 Yes 100 mg = 1 Mem oria sodium 100 1-11 cap, PO, l mg oral 21:48: Daily, # [place] n capsule 00 30 cap, 0 Refill(s), Pharmacy: [facility] [id number], 172.72, cm, 12/16/21 5:50:00 CDT, Height, 86.6, kg, 12/16/21 5:50:00 CDT, Weight Flagyl 500 2021-02 Yes 500 mg = 1 M emoria mg oral 1-11 tab, PO, l tablet 21:48: TID, X 8 [place] 00 day, # 24 tab, 0 Refill(s), Pharmacy: [facility] [id number], 172.72, cm, 12/16/21 5:50:00 CDT, Height, 86.6, kg, 12/16/21 5:50:00 CDT, Weight docusate 2021-02 Yes 100 mg = 1 Mem oria sodium 100 1-11 cap, PO, l mg oral 21:48: Daily, # [place] n capsule 00 30 cap, 0 Refill(s), Pharmacy: [facility] [id number], 172.72, cm, 12/16/21 5:50:00 CDT, Height, 86.6, kg, 12/16/21 5:50:00 CDT, Weight Flagyl 500 2021-02 Yes 500 mg = 1 M emoria mg oral 1-11 tab, PO, l tablet 21:48: TID, X 8 Jimmy 00 day, # 24 tab, 0 Refill(s), Pharmacy: [facility] [id number], 172.72, cm, 12/16/21 5:50:00 CDT, Height, 86.6, kg, 12/16/21 5:50:00 CDT, Weight docusate 2021-02 Yes 100 mg = 1 Mem oria sodium 100 1-11 cap, PO, l mg oral 21:48: Daily, # [place] n capsule 00 30 cap, 0 Refill(s), Pharmacy: [facility] [id number], 172.72, cm, 12/16/21 5:50:00 CDT, Height, 86.6, kg, 12/16/21 5:50:00 CDT, Weight Flagyl 500 2021-02 Yes 500 mg = 1 M emoria mg oral 1-11 tab, PO, l tablet 21:48: TID, X 8 [place] 00 day, # 24 tab, 0 Refill(s), Pharmacy: [facility] [id number], 172.72, cm, 12/16/21 5:50:00 CDT, Height, 86.6, kg, 12/16/21 5:50:00 CDT, Weight docusate 2021-02 Yes 100 mg = 1 Mem oria sodium 100 1-11 cap, PO, l mg oral 21:48: Daily, # [place] n capsule 00 30 cap, 0 Refill(s), Pharmacy: [facility] [id number], 172.72, cm, 12/16/21 5:50:00 CDT, Height, 86.6, kg, 12/16/21 5:50:00 CDT, Weight Flagyl 500 2021-02 Yes 500 mg = 1 M emoria mg oral 1-11 tab, PO, l tablet 21:48: TID, X 8 day, # 24 tab, 0 Refill(s), Pharmacy: [facility] [id number], 172.72, cm, 12/16/21 5:50:00 CDT, Height, 86.6, kg, 12/16/21 5:50:00 CDT, Weight docusate 2021-02 Yes 100 mg = 1 Mem oria sodium 100 1-11 cap, PO, l mg oral 21:48: Daily, # [place] n capsule 00 30 cap, 0 Refill(s), Pharmacy: [facility] [id number], 172.72, cm, 12/16/21 5:50:00 CDT, Height, 86.6, kg, 12/16/21 5:50:00 CDT, Weight Flagyl 500 2021-02 Yes 500 mg = 1 M emoria mg oral 1-11 tab, PO, l tablet 21:48: TID, X 8 Jimmy 00 day, # 24 tab, 0 Refill(s), Pharmacy: [facility] [id number], 172.72, cm, 12/16/21 5:50:00 CDT, Height, 86.6, kg, 12/16/21 5:50:00 CDT, Weight docusate 2021-02 Yes 100 mg = 1 Mem oria sodium 100 1-11 cap, PO, l mg oral 21:48: Daily, # [place] n capsule 00 30 cap, 0 Refill(s), Pharmacy: [facility] [id number], 172.72, cm, 12/16/21 5:50:00 CDT, Height, 86.6, kg, 12/16/21 5:50:00 CDT, Weight Flagyl 500 2021-02 Yes 500 mg = 1 M emoria mg oral 1-11 tab, PO, l tablet 21:48: TID, X 8 [place] 00 day, # 24 tab, 0 Refill(s), Pharmacy: [facility] [id number], 172.72, cm, 12/16/21 5:50:00 CDT, Height, 86.6, kg, 12/16/21 5:50:00 CDT, Weight docusate 2021-02 Yes 100 mg = 1 Mem oria sodium 100 1-11 cap, PO, l mg oral 21:48: Daily, # [place] n capsule 00 30 cap, 0 Refill(s), Pharmacy: [facility] [id number], 172.72, cm, 12/16/21 5:50:00 CDT, Height, 86.6, kg, 12/16/21 5:50:00 CDT, Weight Flagyl 500 2021-02 Yes 500 mg = 1 M emoria mg oral 1-11 tab, PO, l tablet 21:48: TID, X 8 [place] 00 day, # 24 tab, 0 Refill(s), Pharmacy: [facility] [id number], 172.72, cm, 12/16/21 5:50:00 CDT, Height, 86.6, kg, 12/16/21 5:50:00 CDT, Weight docusate 2021-02 Yes 100 mg = 1 Mem oria sodium 100 1-11 cap, PO, l mg oral 21:48: Daily, # [place] capsule 00 30 cap, 0 Refill(s), Pharmacy: [facility] [id number], 172.72, cm, 12/16/21 5:50:00 CDT, Height, 86.6, kg, 12/16/21 5:50:00 CDT, Weight Flagyl 500 2021-02 Yes 500 mg = 1 M emoria mg oral 1-11 tab, PO, l tablet 21:48: TID, X 8 [place] 00 day, # 24 tab, 0 Refill(s), Pharmacy: [facility] [id number], 172.72, cm, 12/16/21 5:50:00 CDT, Height, 86.6, kg, 12/16/21 5:50:00 CDT, Weight docusate 2021-02 Yes 100 mg = 1 Mem oria sodium 100 1-11 cap, PO, l mg oral 21:48: Daily, # [place] capsule 00 30 cap, 0 Refill(s), Pharmacy: [facility] [id number], 172.72, cm, 12/16/21 5:50:00 CDT, Height, 86.6, kg, 12/16/21 5:50:00 CDT, Weight Flagyl 500 2021-02 Yes 500 mg = 1 M emoria mg oral 1-11 tab, PO, l tablet 21:48: TID, X 8 [place] 00 day, # 24 tab, 0 Refill(s), Pharmacy: [facility] [id number], 172.72, cm, 12/16/21 5:50:00 CDT, Height, 86.6, kg, 12/16/21 5:50:00 CDT, Weight docusate 2021-02 Yes 100 mg = 1 Mem oria sodium 100 1-11 cap, PO, l mg oral 21:48: Daily, # [place] n capsule 00 30 cap, 0 Refill(s), Pharmacy: [facility] [id number], 172.72, cm, 12/16/21 5:50:00 CDT, Height, 86.6, kg, 12/16/21 5:50:00 CDT, Weight ciprofloxac 2021-02 Yes 500 mg = 1 Memoria in 500 mg 1-11 tab, PO, l oral tablet 21:46: Daily, X 8 Jimmy 00 day, # 8 tab, 0 Refill(s), Pharmacy: [facility] [id number], 172.72, cm, 12/16/21 5:50:00 CDT, Height, 86.6, kg, 12/16/21 5:50:00 CDT, Weight ciprofloxac 2021-02 Yes 500 mg = 1 Memoria in 500 mg 1-11 tab, PO, l oral tablet 21:46: Daily, X 8 [place] 00 day, # 8 tab, 0 Refill(s), Pharmacy: [facility] [id number], 172.72, cm, 12/16/21 5:50:00 CDT, Height, 86.6, kg, 12/16/21 5:50:00 CDT, Weight ciprofloxac 2021-02 Yes 500 mg = 1 Memoria in 500 mg 1-11 tab, PO, l oral tablet 21:46: Daily, X 8 [place] 00 day, # 8 tab, 0 Refill(s), Pharmacy: [facility] [id number], 172.72, cm, 12/16/21 5:50:00 CDT, Height, 86.6, kg, 12/16/21 5:50:00 CDT, Weight ciprofloxac 2021-02 Yes 500 mg = 1 Memoria in 500 mg 1-11 tab, PO, l oral tablet 21:46: Daily, X 8 [place] 00 day, # 8 tab, 0 Refill(s), Pharmacy: [facility] [id number], 172.72, cm, 12/16/21 5:50:00 CDT, Height, 86.6, kg, 12/16/21 5:50:00 CDT, Weight ciprofloxac 2021-02 Yes 500 mg = 1 Memoria in 500 mg 1-11 tab, PO, l oral tablet 21:46: Daily, X 8 [place] 00 day, # 8 tab, 0 Refill(s), Pharmacy: [facility] [id number], 172.72, cm, 12/16/21 5:50:00 CDT, Height, 86.6, kg, 12/16/21 5:50:00 CDT, Weight ciprofloxac 2021-02 Yes 500 mg = 1 Memoria in 500 mg 1-11 tab, PO, l oral tablet 21:46: Daily, X 8 day, # 8 tab, 0 Refill(s), Pharmacy: [facility] [id number], 172.72, cm, 12/16/21 5:50:00 CDT, Height, 86.6, kg, 12/16/21 5:50:00 CDT, Weight ciprofloxac 2021-02 Yes 500 mg = 1 Memoria in 500 mg 1-11 tab, PO, l oral tablet 21:46: Daily, X 8 day, # 8 tab, 0 Refill(s), Pharmacy: [facility] [id number], 172.72, cm, 12/16/21 5:50:00 CDT, Height, 86.6, kg, 12/16/21 5:50:00 CDT, Weight ciprofloxac 2021-02 Yes 500 mg = 1 Memoria in 500 mg 1-11 tab, PO, l oral tablet 21:46: Daily, X 8 day, # 8 tab, 0 Refill(s), Pharmacy: [facility] [id number], 172.72, cm, 12/16/21 5:50:00 CDT, Height, 86.6, kg, 12/16/21 5:50:00 CDT, Weight ciprofloxac 2021-02 Yes 500 mg = 1 Memoria in 500 mg 1-11 tab, PO, l oral tablet 21:46: Daily, X 8 day, # 8 tab, 0 Refill(s), Pharmacy: [facility] [id number], 172.72, cm, 12/16/21 5:50:00 CDT, Height, 86.6, kg, 12/16/21 5:50:00 CDT, Weight ciprofloxac 2021-02 Yes 500 mg = 1 Memoria in 500 mg 1-11 tab, PO, l oral tablet 21:46: Daily, X 8 [place] 00 day, # 8 tab, 0 Refill(s), Pharmacy: [facility] [id number], 172.72, cm, 12/16/21 5:50:00 CDT, Height, 86.6, kg, 12/16/21 5:50:00 CDT, Weight ciprofloxac 2021-02 Yes 500 mg = 1 Memoria in 500 mg 1-11 tab, PO, l oral tablet 21:46: Daily, X 8 [place] 00 day, # 8 tab, 0 Refill(s), Pharmacy: [facility] [id number], 172.72, cm, 12/16/21 5:50:00 CDT, Height, 86.6, kg, 12/16/21 5:50:00 CDT, Weight ciprofloxac 2021-02 Yes 500 mg = 1 Memoria in 500 mg 1-11 tab, PO, l oral tablet 21:46: Daily, X 8 [place] 00 day, # 8 tab, 0 Refill(s), Pharmacy: [facility] [id number], 172.72, cm, 12/16/21 5:50:00 CDT, Height, 86.6, kg, 12/16/21 5:50:00 CDT, Weight ciprofloxac 2021-02 Yes 500 mg = 1 Memoria in 500 mg 1-11 tab, PO, l oral tablet 21:46: Daily, X 8 [place] 00 day, # 8 tab, 0 Refill(s), Pharmacy: [facility] [id number], 172.72, cm, 12/16/21 5:50:00 CDT, Height, 86.6, kg, 12/16/21 5:50:00 CDT, Weight ciprofloxac 2021-02 Yes 500 mg = 1 Memoria in 500 mg 1-11 tab, PO, l oral tablet 21:46: Daily, X 8 [place] 00 day, # 8 tab, 0 Refill(s), Pharmacy: [facility] [id number], 172.72, cm, 12/16/21 5:50:00 CDT, Height, 86.6, kg, 12/16/21 5:50:00 CDT, Weight ciprofloxac 2021-02 Yes 500 mg = 1 Memoria in 500 mg 1-11 tab, PO, l oral tablet 21:46: Daily, X 8 [place] 00 day, # 8 tab, 0 Refill(s), Pharmacy: [facility] [id number], 172.72, cm, 12/16/21 5:50:00 CDT, Height, 86.6, kg, 12/16/21 5:50:00 CDT, Weight ciprofloxac 2021-02 Yes 500 mg = 1 Memoria in 500 mg 1-11 tab, PO, l oral tablet 21:46: Daily, X 8 [place] 00 day, # 8 tab, 0 Refill(s), Pharmacy: [facility] [id number], 172.72, cm, 12/16/21 5:50:00 CDT, Height, 86.6, [...] solution moxifloxaci 2021-02 Yes 1 drp, Evert droa n 0.5% 1-09 LEFT EYE, l ophthalmic [...] LEFT EYE, l ophthalmic 22:31: BID, 0 Mayr nn solution 00 Refill(s) bromfenac 2021-02 Yes [...] LEFT EYE, l 0.5% 22:17: BID, 0 [place] preservativ 00 Refill(s) e-free ophthalmic solution timolol [...] LEFT EYE, l 0.5% 22:17: BID, 0 [place] preservativ 00 Refill(s) e-free ophthalmic solution timolol 2021-02 Yes 1 drp, Memoria maleate 1-09 LEFT EYE, l 0.5% 22:17: BID, 0 Jimmy preservativ 00 Refill(s) e-free ophthalmic solution timolol 2021-02 Yes 1 drp, Memoria maleate 1-09 LEFT EYE, l 0.5% 22:17: BID, 0 [place] preservativ 00 Refill(s) e-free ophthalmic solution timolol 2021-02 Yes 1 drp, Memoria maleate 1-09 LEFT EYE, l 0.5% 22:17: BID, 0 [place] preservativ 00 Refill(s) e-free ophthalmic solution timolol [...] LEFT EYE, l 0.5% 22:17: BID, 0 [place] preservativ 00 Refill(s) e-free ophthalmic solution timolol 2021-02 Yes 1 drp, Memoria maleate 1-09 LEFT EYE, l 0.5% 22:17: BID, 0 [place] preservativ 00 Refill(s) e-free ophthalmic solution timolol 2021-02 Yes 1 drp, Memoria maleate 1-09 LEFT EYE, l 0.5% 22:17: BID, 0 [place] preservativ 00 Refill(s) e-free ophthalmic solution timolol 2021-02 Yes 1 drp, Memoria maleate - LEFT EYE, l 0.5% 22:17: BID, 0 [place] preservativ 00 Refill(s) e-free ophthalmic solution timolol 2021-02 Yes 1 drp, Memoria maleate -09 LEFT EYE, l 0.5% 22:17: BID, 0 [place] preservativ 00 Refill(s) e-free ophthalmic solution timolol 2021-02 Yes 1 drp, Memoria maleate - LEFT EYE, l 0.5% 22:17: BID, 0 [place] preservativ 00 Refill(s) e-free ophthalmic solution COLESEVELAM [...] Yes 1{capsu Take [address] [facility] 11-folic-C- - le} capsule by Marli guillaume biot-zinc 10:59: [...] 60 MG 10:59: daily. Medical capsule [address] [place] coenzyme 2021-02 Yes [address] [facility] Q10 100 mg 02-11 [facility] Chew 10:59: Medical [address] [place] [address] niacin 500 2021-02 Yes [address] [facility] MG CR 02-11 [facility] capsule 10:59: Medical [address] [place] [address] losartan 2021-02 Yes 50mg QD Take [address] [facility] (COZAAR) 50 02-11 by mouth [facility] MG tablet 10:59: daily. Medica l [address] [place] sertraline 2021-02 Yes 50mg Take 50 mg [...] Yes 1{capsu Take [address] [facility] 11-folic-C- 1- le} capsule by Marli guillaume biot-zinc 10:59: [...] [facility] 60 MG 10:59: daily. Medical capsule [address] [place] [address] coenzyme 2021-02 Yes [address] [facility] Q10 100 mg 02-11 [facility] 10:59: [address] niacin 500 2021-02 Yes [address] [facility] MG CR 02-11 [facility] capsule 10:59: Medical [address] [place] [address] losartan 2021-02 Yes 50mg QD Take [address] [facility] (COZAAR) 50 02-11 by mouth [facility] MG tablet 10:59: daily. Medica l [address] [place] sertraline 2021-02 Yes 50mg Take [address] (ZOLOFT) 50 01 by mouth. Coco es MG tablet 10:59: [facility] aspirin 81 2021-02 Yes 81mg QD Take [address] MG EC 02-11 by mouth [facility] tablet 10:59: daily. [facility] furosemide 2021-02 Yes 40mg Take [address] (LASIX) 40 02-11 by mouth. [facility] MG tablet 10:59: [facility] B complex 2021-02 Yes 1{capsu Take [address] [facility] 11-folic-C- - le} capsule by Marli guillaume biot-zinc 10:59: [...] Yes 1{capsu Take [address] [facility] 11-folic-C- - le} capsule by Marli guillaume biot-zinc 10:59: [...] 60 MG 10:59: daily. Medical capsule [address] [place] coenzyme 2021-02 Yes 1 po qd [facility] [...] 60 MG 10:59: daily. Medical capsule 52 [place] coenzyme 2021-02 Yes 1 po qd [facility] [...] Yes 1{capsu Take [address] [facility] 11-folic-C- 1- le} capsule by Marli guillaume biot-zinc 10:59: [...] Cap 10:59: mouth. [facility] capsule ciprofloxac 2021-02 Yes 500mg QD [...] QD Take [address] [facility] - [facility] (CIPRO) 500 00:00: (500 mg [...] by Cente r mouth daily. ciprofloxac 2021-02 500mg QD Take [address] [facility] [address] [facility] HCl 1-02-10 [facility] (CIPRO) 500 00:00: 00:00 (500 mg Me dical MG tablet 00 :00 total) by Cent[facility] r mouth daily. metroNIDAZO 2021-02- No 500mg Q.[id number] Take [address] [facility] (FLAGYL) 02-11 [id number] [facility] 500 MG 00:00: 23:59 3D (500 mg Medical tablet 00 :00 total) by Center mouth 3 (three) times daily for 7 days. metroNIDAZO 2021-02- No 500mg Q.[id number] Take [address] [facility] (FLAGYL) 02-11 [id number] [facility] 500 MG 00:00: 23:59 3D (500 mg Medical tablet 00 :00 total) by Center mouth 3 (three) times daily for 7 days. metroNIDAZO 2021-02- No 500mg Q.[id number] Take [address] [facility] (FLAGYL) 02-11 [id number] [facility] 500 MG 00:00: 23:59 3D (500 mg Medical tablet 00 :00 total) by Center mouth 3 (three) times daily for 7 days. metroNIDAZO 2021-02- No 500mg Q.[id number] Take [address] [facility] (FLAGYL) 02-11 [id number] [facility] 500 MG 00:00: 23:59 3D (500 mg Medical tablet 00 :00 total) by Center mouth 3 (three) times daily for 7 days. metroNIDAZO 2021-02- No 500mg Q.[id number] Take [address] [facility] (FLAGYL) 02-11 [id number] [facility] 500 MG 00:00: 23:59 3D (500 mg Medical tablet 00 :00 total) by Center mouth 3 (three) times daily for 7 days. metroNIDAZO 2021-02- No 500mg Q.[id number] Take [address] [facility] (FLAGYL) 02-11 [id number] [facility] 500 MG 00:00: 23:59 3D (500 mg Medical tablet 00 :00 total) by Center mouth 3 (three) times daily for 7 days. metroNIDAZO 2021-02- No 500mg Q.[id number] Take [address] [facility] (FLAGYL) 02-11 11-08 [id number] [facility] 500 MG 00:00: 23:59 3D (500 mg Medical tablet 00 :00 total) by Center mouth 3 (three) times daily for 7 days. zolpidem 2021-02- No 10mg Take [address] [facility] [address] [facility] (AMBIEN) 10 0-31 10-29 by mouth. Marli kes mg tablet 21:40: 00:00 Medical 40 :00 [place] zolpidem 2021-02- No 10mg Take [address] [facility] [address] [facility] (AMBIEN) 10 0-31 10-29 by mouth. Marli kes mg tablet 21:40: 00:00 Medical 40 :00 [place] zolpidem 2021-02- No 10mg Take [address] [facility] [address] [facility] (AMBIEN) 10 0-31 10-29 by mouth. Marli kes mg tablet 21:40: 00:00 Medical 40 :00 [place] zolpidem 2021-02- No 10mg Take [address] [facility] [address] [facility] (AMBIEN) 10 0-31 10-29 by mouth. Marli kes mg tablet 21:40: 00:00 Medical 40 :00 [place] zolpidem 2021-02- No 10mg Take [address] [facility] [address] [facility] (AMBIEN) 10 0-31 10-29 by mouth. Marli kes mg tablet 21:40: 00:00 Medical 40 :00 [place] zolpidem 2021-02- No 10mg Take [address] [facility] [address] [facility] (AMBIEN) 10 0-31 10-29 by mouth. Marli kes mg tablet 21:40: 00:00 Medical 40 :00 [place] zolpidem 2021-02- No 10mg Take [address] [facility] [address] [facility] (AMBIEN) 10 0-31 10-29 by mouth. Marli kes mg tablet 21:40: 00:00 Medical 40 :00 [place] NIFEdipine 2021-02- No 60mg QD Take [address] [facility] (PROCARDIA- 0-29 10-29 by mouth Coco es XL) 60 MG 17:00: 00:00 daily. Medic al (OSM) 24 hr 17 :00 [place] tablet NIFEdipine 2021-02- No 60mg QD Take [...] 12 :00 every l tablet evening. metoprolol 2022-0 2022- No 12.5mg QD Take 12.5 [facility] tartrate [...] 12 :00 every l tablet evening. gabapentin 0 Yes 300mg QD Take 300 [facility] (NEURONTIN) 5-[address] 300 mg 15:42: [facility] 01 nightly. l traZODone 0 Yes 150mg QD Take 150 [facility] (DESYREL) 5-[address] 150 MG 15:42: [facility] tablet 01 nightly. l zolpidem 0 Yes 10mg QD Take 10 mg Met [...] have 10mg dose. Please order 10mg. aspirin 2-0 2022- No 81mg QD Take [...] st mg tablet 15:42: daily as [facility] omgea 49 needed l (fluid overload). folic Yes [...] 25 mg 49 morning. l tablet sertraline 2021-0 Yes 50mg QD Take 50 mg M [...] ORAL) Saturday, and Saturday. After dialysis metoprolol 2021-0 Yes 25mg QD Take 25 mg M [facility]i tartrate 5-[address] (LOPRESSOR) 15:42: every Hospi ta 25 mg 49 morning. l tablet sertraline 2021-0 Yes 50mg QD Take 50 mg M [...] 15:42: daily. Hospit a 49 l losartan 0 2021- No 75mg Q.5D Take [...] day for 30 days. metroNIDAZO 2021- No [id number] 500mg Q.98507061 Take 1 [facility] (FLAGYL) 06-[id number] 500 MG 00:00: 04:59 3D (500 mg [facility]osp[facility] tablet 00 :00 total) by l mouth 3 (three) times a day for 8 days. ciprofloxac 2021-2021- No [id number] 500mg Q.5D Take 1 [facility] (CIPRO) 06-[address] 500 MG 00:00: 04:59 (500 mg [facility]ospita tablet 00 :00 total) by l mouth 2 (two) times a day for 8 days. metroNIDAZO 2021- No [id number] 500mg Q.71001450 Take 1 [facility] (FLAGYL) 06-[id number] 500 MG 00:00: 04:59 3D (500 mg [facility]osp[facility] tablet 00 :00 total) by l mouth 3 (three) times a day for 8 days. ciprofloxac 2021- No [id number] 500mg Q.5D Take 1 [facility] (CIPRO) 06-[address] 500 MG 00:00: 04:59 (500 mg [facility]osp[facility] tablet 00 :00 total) by l mouth 2 (two) times a day for 8 days. metroNIDAZO 2021- No [id number] 500mg Q.64256301 Take 1 [facility] (FLAGYL) 06-[id number] 500 MG 00:00: 04:59 3D (500 mg [facility] tablet 00 :00 total) by l mouth 3 (three) times a day for 8 days. ciprofloxac 2021- No [id number] 500mg Q.5D Take 1 [facility] (CIPRO) 06-[address] 500 MG 00:00: 04:59 (500 mg [facility]osp[facility] tablet 00 :00 total) by l mouth 2 (two) times a day for 8 days. metroNIDAZO 2021- No [id number] 500mg Q.13315848 Take 1 [facility] (FLAGYL) 06-[id number] 500 MG 00:00: 04:59 3D (500 mg [facility]osp[facility] tablet 00 :00 total) by l mouth 3 (three) times a day for 8 days. ciprofloxac 2021- No [id number] 500mg Q.5D Take 1 [facility] (CIPRO) 06-[address] 500 MG 00:00: 04:59 (500 mg [facility] tablet 00 :00 total) by l mouth 2 (two) times a day for 8 days. metroNIDAZO 2021- No [id number] 500mg Q.92674405 Take 1 [facility] (FLAGYL) 06-[id number] 500 MG 00:00: 04:59 3D (500 mg [facility]osp[facility] tablet 00 :00 total) by l mouth 3 (three) times a day for 8 days. ciprofloxac 2021- No [id number] 500mg Q.5D Take 1 [facility] (CIPRO) 06-[address] 500 MG 00:00: 04:59 (500 mg [facility] tablet 00 :00 total) by l mouth 2 (two) times a day for 8 days. metroNIDAZO 0 2- No [id number] 500mg Q.79052290 Take 1 [facility] (FLAGYL) 06-[id number] 500 MG 00:00: 04:59 3D (500 mg [facility]osp[facility] tablet 00 :00 total) by l mouth 3 (three) times a day for 8 days. ciprofloxac 2-0 2- No [id number] 500mg Q.5D Take 1 [facility] (CIPRO) 06-[address] 500 MG 00:00: 04:59 (500 mg [facility] tablet 00 :00 total) by l mouth 2 (two) times a day for 8 days. metroNIDAZO 2-0 2021- No [id number] 500mg Q.66077103 Take 1 [facility] (FLAGYL) 06-[id number] 500 MG 00:00: 04:59 3D (500 mg [facility]osp[facility] tablet 00 :00 total) by l mouth 3 (three) times a day for 8 days. ciprofloxac 2-0 2- No [id number] 500mg Q.5D Take 1 [facility] (CIPRO) [...] MG 20 :00 daily. l tablet acetaminoph 2-0 2022- No 2000mg QD Take 2,000 Method[facility] [...] 1-18 tab, PO, l tablet 20:08: Bedtime, [place] 00 PRN for sleep, # 30 tab, 0 Refill(s), Pharmacy: [facility] [id number], 170.18, cm, 06/22/19 13:48:00 CDT, Height, 86.818, kg, 06/22/19 13:48:00 CDT, Weight zolpidem 2020-02 Yes 10 mg = 1 M emoria mg oral 1-18 tab, PO, l tablet 20:08: Bedtime, [place] 00 PRN for sleep, # 30 tab, 0 Refill(s), Pharmacy: [facility] [id number], 170.18, cm, 06/22/19 13:48:00 CDT, Height, 86.818, kg, 06/22/19 13:48:00 CDT, Weight zolpidem 2020-02 Yes 10 mg = 1 M emoria mg oral 1-18 tab, PO, l tablet 20:08: Bedtime, [place] 00 PRN for sleep, # 30 tab, 0 Refill(s), Pharmacy: [facility] [id number], 170.18, cm, 06/22/19 13:48:00 CDT, Height, 86.818, kg, 06/22/19 13:48:00 CDT, Weight zolpidem 2020-02 Yes 10 mg = 1 M emoria mg oral 1-18 tab, PO, l tablet 20:08: Bedtime, [place] 00 PRN for sleep, # 30 tab, 0 Refill(s), Pharmacy: [facility] [id number], 170.18, cm, 06/22/19 13:48:00 CDT, Height, 86.818, kg, 06/22/19 13:48:00 CDT, Weight zolpidem 2020-02 Yes 10 mg = 1 M emoria mg oral 1-18 tab, PO, l tablet 20:08: Bedtime, [place] 00 PRN for sleep, # 30 tab, 0 Refill(s), Pharmacy: [facility] [id number], 170.18, cm, 06/22/19 13:48:00 CDT, Height, 86.818, kg, 06/22/19 13:48:00 CDT, Weight zolpidem 2020-02 Yes 10 mg = 1 M emoria mg oral 1-18 tab, PO, l tablet 20:08: Bedtime, [place] 00 PRN for sleep, # 30 tab, 0 Refill(s), Pharmacy: [facility] [id number], 170.18, cm, 06/22/19 13:48:00 CDT, Height, 86.818, kg, 06/22/19 13:48:00 CDT, Weight zolpidem 2020-02 Yes 10 mg = 1 M emoria mg oral 1-18 tab, PO, l tablet 20:08: Bedtime, [place] 00 PRN for sleep, # 30 tab, 0 Refill(s), Pharmacy: [facility] [id number], 170.18, cm, 06/22/19 13:48:00 CDT, Height, 86.818, kg, 06/22/19 13:48:00 CDT, Weight zolpidem 2020-02 Yes 10 mg = 1 M emoria mg oral 1-18 tab, PO, l tablet 20:08: Bedtime, [place] 00 PRN for sleep, # 30 tab, 0 Refill(s), Pharmacy: [facility] [id number], 170.18, cm, 06/22/19 13:48:00 CDT, Height, 86.818, kg, 06/22/19 13:48:00 CDT, Weight zolpidem 2020-02 Yes 10 mg = 1 M emoria mg oral 1-18 tab, PO, l tablet 20:08: Bedtime, [place] 00 PRN for sleep, # 30 tab, 0 Refill(s), Pharmacy: [facility] [id number], 170.18, cm, 06/22/19 13:48:00 CDT, Height, 86.818, kg, 06/22/19 13:48:00 CDT, Weight zolpidem 2020-02 Yes 10 mg = 1 M emoria mg oral 1-18 tab, PO, l tablet 20:08: Bedtime, [place] 00 PRN for sleep, # 30 tab, 0 Refill(s), Pharmacy: [facility] [id number], 170.18, cm, 06/22/19 13:48:00 CDT, Height, 86.818, kg, 06/22/19 13:48:00 CDT, Weight zolpidem 2020-02 Yes 10 mg = 1 M emoria mg oral 1-18 tab, PO, l tablet 20:08: Bedtime, [place] 00 PRN for sleep, # 30 tab, 0 Refill(s), Pharmacy: [facility] [id number], 170.18, cm, 06/22/19 13:48:00 CDT, Height, 86.818, kg, 06/22/19 13:48:00 CDT, Weight zolpidem 2020-02 Yes 10 mg = 1 M emoria mg oral 1-18 tab, PO, l tablet 20:08: Bedtime, [place] 00 PRN for sleep, # 30 tab, 0 Refill(s), Pharmacy: [facility] [id number], 170.18, cm, 06/22/19 13:48:00 CDT, Height, 86.818, kg, 06/22/19 13:48:00 CDT, Weight zolpidem 2020-02 Yes 10 mg = 1 M emoria mg oral 1-18 tab, PO, l tablet 20:08: Bedtime, [place] 00 PRN for sleep, # 30 tab, 0 Refill(s), Pharmacy: [facility] [id number], 170.18, cm, 06/22/19 13:48:00 CDT, Height, 86.818, kg, 06/22/19 13:48:00 CDT, Weight zolpidem 2020-02 Yes 10 mg = 1 M emoria mg oral 1-18 tab, PO, l tablet 20:08: Bedtime, [place] 00 PRN for sleep, # 30 tab, 0 Refill(s), Pharmacy: [facility] [id number], 170.18, cm, 06/22/19 13:48:00 CDT, Height, 86.818, kg, 06/22/19 13:48:00 CDT, Weight zolpidem 2020-02 Yes 10 mg = 1 M emoria mg oral 1-18 tab, PO, l tablet 20:08: Bedtime, [place] 00 PRN for sleep, # 30 tab, 0 Refill(s), Pharmacy: [facility] [id number], 170.18, cm, 06/22/19 13:48:00 CDT, Height, 86.818, kg, 06/22/19 13:48:00 CDT, Weight zolpidem 2020-02 Yes 10 mg = 1 M emoria mg oral 1-18 tab, PO, l tablet 20:08: Bedtime, [place] 00 PRN for sleep, # 30 tab, 0 Refill(s), Pharmacy: [facility] [id number], 170.18, cm, 06/22/19 13:48:00 CDT, Height, 86.818, kg, 06/22/19 13:48:00 CDT, Weight Trazodone 2020-02 Yes = 1 tab, Evert dora Hydrochlori 0-28 PO, l de 50 MG 17:53: Bedtime, # Her garcia Oral Tablet 00 90 tab, 1 Refill(s), Pharmacy: [facility] [id number], 170.18, cm, 06/22/19 13:48:00 CDT, Height, 86.818, kg, 06/22/19 13:48:00 CDT, Weight trazodone 2020-02 Yes = 1 tab, Evert dora 50 mg oral 0-28 PO, l tablet 17:53: Bedtime, # Mary nn 00 90 tab, 1 Refill(s), Pharmacy: [facility] [id number], 170.18, cm, 06/22/19 13:48:00 CDT, Height, 86.818, kg, 06/22/19 13:48:00 CDT, Weight Trazodone 2020-02 Yes = 1 tab, Evert dora Hydrochlori 0-28 PO, l de 50 MG 17:53: Bedtime, # garcia Oral Tablet 00 90 tab, 1 Refill(s), Pharmacy: [facility] [id number], 170.18, cm, 06/22/19 13:48:00 CDT, Height, 86.818, kg, 06/22/19 13:48:00 CDT, Weight trazodone 2020-02 Yes = 1 tab, Evert dora 50 mg oral 0-28 PO, l tablet 17:53: Bedtime, # Mary nn 00 90 tab, 1 Refill(s), Pharmacy: [facility] [id number], 170.18, cm, 06/22/19 13:48:00 CDT, Height, 86.818, kg, 06/22/19 13:48:00 CDT, Weight Trazodone 2020-02 Yes = 1 tab, Evert dora Hydrochlori 0-28 PO, l de 50 MG 17:53: Bedtime, # garcia Oral Tablet 00 90 tab, 1 Refill(s), Pharmacy: [facility] [id number], 170.18, cm, 06/22/19 13:48:00 CDT, Height, 86.818, kg, 06/22/19 13:48:00 CDT, Weight trazodone 2020-02 Yes = 1 tab, Evert dora 50 mg oral 0-28 PO, l tablet 17:53: Bedtime, # Mary nn 00 90 tab, 1 Refill(s), Pharmacy: [facility] [id number], 170.18, cm, 06/22/19 13:48:00 CDT, Height, 86.818, kg, 06/22/19 13:48:00 CDT, Weight Trazodone 2020-02 Yes = 1 tab, Evert dora Hydrochlori 0-28 PO, l de 50 MG 17:53: Bedtime, # Her garcia Oral Tablet 00 90 tab, 1 Refill(s), Pharmacy: [facility] [id number], 170.18, cm, 06/22/19 13:48:00 CDT, Height, 86.818, kg, 06/22/19 13:48:00 CDT, Weight trazodone 2020-02 Yes = 1 tab, Evert dora 50 mg oral 0-28 PO, l tablet 17:53: Bedtime, # Mary nn 00 90 tab, 1 Refill(s), Pharmacy: [facility] [id number], 170.18, cm, 06/22/19 13:48:00 CDT, Height, 86.818, kg, 06/22/19 13:48:00 CDT, Weight Trazodone 2020-02 Yes = 1 tab, Evert dora Hydrochlori 0-28 PO, l de 50 MG 17:53: Bedtime, # Her garcia Oral Tablet 00 90 tab, 1 Refill(s), Pharmacy: [facility] [id number], 170.18, cm, 06/22/19 13:48:00 CDT, Height, 86.818, kg, 06/22/19 13:48:00 CDT, Weight trazodone 2020-02 Yes = 1 tab, Evert dora 50 mg oral 0-28 PO, l tablet 17:53: Bedtime, # Mary nn 00 90 tab, 1 Refill(s), Pharmacy: [facility] [id number], 170.18, cm, 06/22/19 13:48:00 CDT, Height, 86.818, kg, 06/22/19 13:48:00 CDT, Weight Trazodone 2020-02 Yes = 1 tab, Evert dora Hydrochlori 0-28 PO, l de 50 MG 17:53: Bedtime, # Her garcia Oral Tablet 00 90 tab, 1 Refill(s), Pharmacy: [facility] [id number], 170.18, cm, 06/22/19 13:48:00 CDT, Height, 86.818, kg, 06/22/19 13:48:00 CDT, Weight trazodone 2020-02 Yes = 1 tab, Evert dora 50 mg oral 0-28 PO, l tablet 17:53: Bedtime, # Mary nn 00 90 tab, 1 Refill(s), Pharmacy: [facility] [id number], 170.18, cm, 06/22/19 13:48:00 CDT, Height, 86.818, kg, 06/22/19 13:48:00 CDT, Weight Trazodone 2020-02 Yes = 1 tab, Evert dora Hydrochlori 0-28 PO, l de 50 MG 17:53: Bedtime, # Her garcia Oral Tablet 00 90 tab, 1 Refill(s), Pharmacy: [facility] [id number], 170.18, cm, 06/22/19 13:48:00 CDT, Height, 86.818, kg, 06/22/19 13:48:00 CDT, Weight trazodone 2020-02 Yes = 1 tab, Evert dora 50 mg oral 0-28 PO, l tablet 17:53: Bedtime, # Mary nn 00 90 tab, 1 Refill(s), Pharmacy: [facility] [id number], 170.18, cm, 06/22/19 13:48:00 CDT, Height, 86.818, kg, 06/22/19 13:48:00 CDT, Weight Trazodone 2020-02 Yes = 1 tab, Evert dora Hydrochlori 0-28 PO, l de 50 MG 17:53: Bedtime, # garcia Oral Tablet 00 90 tab, 1 Refill(s), Pharmacy: [facility] [id number], 170.18, cm, 06/22/19 13:48:00 CDT, Height, 86.818, kg, 06/22/19 13:48:00 CDT, Weight trazodone 2020-02 Yes = 1 tab, Evert dora 50 mg oral 0-28 PO, l tablet 17:53: Bedtime, # Mary nn 00 90 tab, 1 Refill(s), Pharmacy: [facility] [id number], 170.18, cm, 06/22/19 13:48:00 CDT, Height, 86.818, kg, 06/22/19 13:48:00 CDT, Weight Trazodone 2020-02 Yes = 1 tab, Evert dora Hydrochlori 0-28 PO, l de 50 MG 17:53: Bedtime, # Her garcia Oral Tablet 00 90 tab, 1 Refill(s), Pharmacy: [facility] [id number], 170.18, cm, 06/22/19 13:48:00 CDT, Height, 86.818, kg, 06/22/19 13:48:00 CDT, Weight trazodone 2020-02 Yes = 1 tab, Evert dora 50 mg oral 0-28 PO, l tablet 17:53: Bedtime, # Mary nn 00 90 tab, 1 Refill(s), Pharmacy: [facility] [id number], 170.18, cm, 06/22/19 13:48:00 CDT, Height, 86.818, kg, 06/22/19 13:48:00 CDT, Weight Trazodone 2020-02 Yes = 1 tab, Evert dora Hydrochlori 0-28 PO, l de 50 MG 17:53: Bedtime, # Her garcia Oral Tablet 00 90 tab, 1 Refill(s), Pharmacy: [facility] [id number], 170.18, cm, 06/22/19 13:48:00 CDT, Height, 86.818, kg, 06/22/19 13:48:00 CDT, Weight trazodone 2020-02 Yes = 1 tab, Evert dora 50 mg oral 0-28 PO, l tablet 17:53: Bedtime, # Mary nn 00 90 tab, 1 Refill(s), Pharmacy: [facility] [id number], 170.18, cm, 06/22/19 13:48:00 CDT, Height, 86.818, kg, 06/22/19 13:48:00 CDT, Weight Trazodone 2020-02 Yes = 1 tab, Evert dora Hydrochlori 0-28 PO, l de 50 MG 17:53: Bedtime, # Her garcia Oral Tablet 00 90 tab, 1 Refill(s), Pharmacy: [facility] [id number], 170.18, cm, 06/22/19 13:48:00 CDT, Height, 86.818, kg, 06/22/19 13:48:00 CDT, Weight trazodone 2020-02 Yes = 1 tab, Evert dora 50 mg oral 0-28 PO, l tablet 17:53: Bedtime, # Mary nn 00 90 tab, 1 Refill(s), Pharmacy: [facility] [id number], 170.18, cm, 06/22/19 13:48:00 CDT, Height, 86.818, kg, 06/22/19 13:48:00 CDT, Weight Trazodone 2020-02 Yes = 1 tab, Evert dora Hydrochlori 0-28 PO, l de 50 MG 17:53: Bedtime, # Her garcia Oral Tablet 00 90 tab, 1 Refill(s), Pharmacy: [facility] [id number], 170.18, cm, 06/22/19 13:48:00 CDT, Height, 86.818, kg, 06/22/19 13:48:00 CDT, Weight trazodone 2020-02 Yes = 1 tab, Evert dora 50 mg oral 0-28 PO, l tablet 17:53: Bedtime, # Mary nn 00 90 tab, 1 Refill(s), Pharmacy: [facility] [id number], 170.18, cm, 06/22/19 13:48:00 CDT, Height, 86.818, kg, 06/22/19 13:48:00 CDT, Weight Trazodone 2020-02 Yes = 1 tab, Evert dora Hydrochlori 0-28 PO, l de 50 MG 17:53: Bedtime, # Her garcia Oral Tablet 00 90 tab, 1 Refill(s), Pharmacy: [facility] [id number], 170.18, cm, 06/22/19 13:48:00 CDT, Height, 86.818, kg, 06/22/19 13:48:00 CDT, Weight trazodone 2020-02 Yes = 1 tab, Evert dora 50 mg oral 0-28 PO, l tablet 17:53: Bedtime, # Mary nn 00 90 tab, 1 Refill(s), Pharmacy: [facility] [id number], 170.18, cm, 06/22/19 13:48:00 CDT, Height, 86.818, kg, 06/22/19 13:48:00 CDT, Weight Trazodone 2020-02 Yes = 1 tab, Evert dora Hydrochlori 0-28 PO, l de 50 MG 17:53: Bedtime, # Her garcia Oral Tablet 00 90 tab, 1 Refill(s), Pharmacy: [facility] [id number], 170.18, cm, 06/22/19 13:48:00 CDT, Height, 86.818, kg, 06/22/19 13:48:00 CDT, Weight trazodone 2020-02 Yes = 1 tab, Evert dora 50 mg oral 0-28 PO, l tablet 17:53: Bedtime, # Mary nn 00 90 tab, 1 Refill(s), Pharmacy: [facility] [id number], 170.18, cm, 06/22/19 13:48:00 CDT, Height, 86.818, kg, 06/22/19 13:48:00 CDT, Weight Trazodone 2020-02 Yes = 1 tab, Evert dora Hydrochlori 0-28 PO, l de 50 MG 17:53: Bedtime, # Her garcia Oral Tablet 00 90 tab, 1 Refill(s), Pharmacy: [facility] [id number], 170.18, cm, 06/22/19 13:48:00 CDT, Height, 86.818, kg, 06/22/19 13:48:00 CDT, Weight trazodone 2020-02 Yes = 1 tab, Evert dora 50 mg oral 0-28 PO, l tablet 17:53: Bedtime, # Mary nn 00 90 tab, 1 Refill(s), Pharmacy: [facility] [id number], 170.18, cm, 06/22/19 13:48:00 CDT, Height, 86.818, kg, 06/22/19 13:48:00 CDT, Weight Trazodone 2020-02 Yes = 1 tab, Evert dora Hydrochlori 0-28 PO, l de 50 MG 17:53: Bedtime, # Her garcia Oral Tablet 00 90 tab, 1 Refill(s), Pharmacy: [facility] [id number], 170.18, cm, 06/22/19 13:48:00 CDT, Height, 86.818, kg, 06/22/19 13:48:00 CDT, Weight trazodone 2020-02 Yes = 1 tab, Evert dora 50 mg oral 0-28 PO, l tablet 17:53: Bedtime, # Mary nn 00 90 tab, 1 Refill(s), Pharmacy: [facility] [id number], 170.18, cm, 06/22/19 13:48:00 CDT, Height, 86.818, kg, 06/22/19 13:48:00 CDT, Weight zolpidem 2020-02 Yes 10 mg = 1 M emoria mg oral 0-01 tab, PO, l tablet 22:04: Bedtime, [place] 00 PRN for sleep, # 30 tab, 0 Refill(s), Pharmacy: [facility] [id number], 170.18, cm, 06/22/19 13:48:00 CDT, Height, 86.818, kg, 06/22/19 13:48:00 CDT, Weight zolpidem 2020-02 Yes 10 mg = 1 M emoria mg oral 0-01 tab, PO, l tablet 22:04: Bedtime, [place] 00 PRN for sleep, # 30 tab, 0 Refill(s), Pharmacy: [facility] [id number], 170.18, cm, 06/22/19 13:48:00 CDT, Height, 86.818, kg, 06/22/19 13:48:00 CDT, Weight zolpidem 2020-02 Yes 10 mg = 1 M emoria mg oral 0-01 tab, PO, l tablet 22:04: Bedtime, [place] 00 PRN for sleep, # 30 tab, 0 Refill(s), Pharmacy: [facility] [id number], 170.18, cm, 06/22/19 13:48:00 CDT, Height, 86.818, kg, 06/22/19 13:48:00 CDT, Weight zolpidem 2020-02 Yes 10 mg = 1 M emoria mg oral 0-01 tab, PO, l tablet 22:04: Bedtime, [place] 00 PRN for sleep, # 30 tab, 0 Refill(s), Pharmacy: [facility] [id number], 170.18, cm, 06/22/19 13:48:00 CDT, Height, 86.818, kg, 06/22/19 13:48:00 CDT, Weight zolpidem 2020-02 Yes 10 mg = 1 M emoria mg oral 0-01 tab, PO, l tablet 22:04: Bedtime, [place] 00 PRN for sleep, # 30 tab, 0 Refill(s), Pharmacy: [facility] [id number], 170.18, cm, 06/22/19 13:48:00 CDT, Height, 86.818, kg, 06/22/19 13:48:00 CDT, Weight zolpidem 2020-02 Yes 10 mg = 1 M emoria mg oral 0-01 tab, PO, l tablet 22:04: Bedtime, [place] 00 PRN for sleep, # 30 tab, 0 Refill(s), Pharmacy: [facility] [id number], 170.18, cm, 06/22/19 13:48:00 CDT, Height, 86.818, kg, 06/22/19 13:48:00 CDT, Weight zolpidem 2020-02 Yes 10 mg = 1 M emoria mg oral 0-01 tab, PO, l tablet 22:04: Bedtime, [place] 00 PRN for sleep, # 30 tab, 0 Refill(s), Pharmacy: [facility] [id number], 170.18, cm, 06/22/19 13:48:00 CDT, Height, 86.818, kg, 06/22/19 13:48:00 CDT, Weight zolpidem 2020-02 Yes 10 mg = 1 M emoria mg oral 0-01 tab, PO, l tablet 22:04: Bedtime, [place] 00 PRN for sleep, # 30 tab, 0 Refill(s), Pharmacy: [facility] [id number], 170.18, cm, 06/22/19 13:48:00 CDT, Height, 86.818, kg, 06/22/19 13:48:00 CDT, Weight zolpidem 2020-02 Yes 10 mg = 1 M emoria mg oral 0-01 tab, PO, l tablet 22:04: Bedtime, [place] 00 PRN for sleep, # 30 tab, 0 Refill(s), Pharmacy: [facility] [id number], 170.18, cm, 06/22/19 13:48:00 CDT, Height, 86.818, kg, 06/22/19 13:48:00 CDT, Weight zolpidem 2020-02 Yes 10 mg = 1 M emoria mg oral 0-01 tab, PO, l tablet 22:04: Bedtime, [place] 00 PRN for sleep, # 30 tab, 0 Refill(s), Pharmacy: [facility] [id number], 170.18, cm, 06/22/19 13:48:00 CDT, Height, 86.818, kg, 06/22/19 13:48:00 CDT, Weight zolpidem 2020-02 Yes 10 mg = 1 M emoria mg oral 0-01 tab, PO, l tablet 22:04: Bedtime, Jimmy 00 PRN for sleep, # 30 tab, 0 Refill(s), Pharmacy: [facility] [id number], 170.18, cm, 06/22/19 13:48:00 CDT, Height, 86.818, kg, 06/22/19 13:48:00 CDT, Weight zolpidem 2020-02 Yes 10 mg = 1 M emoria mg oral 0-01 tab, PO, l tablet 22:04: Bedtime, [place] 00 PRN for sleep, # 30 tab, 0 Refill(s), Pharmacy: [facility] [id number], 170.18, cm, 06/22/19 13:48:00 CDT, Height, 86.818, kg, 06/22/19 13:48:00 CDT, Weight zolpidem 2020-02 Yes 10 mg = 1 M emoria mg oral 0-01 tab, PO, l tablet 22:04: Bedtime, [place] 00 PRN for sleep, # 30 tab, 0 Refill(s), Pharmacy: [facility] [id number], 170.18, cm, 06/22/19 13:48:00 CDT, Height, 86.818, kg, 06/22/19 13:48:00 CDT, Weight zolpidem 2020-02 Yes 10 mg = 1 M emoria mg oral 0-01 tab, PO, l tablet 22:04: Bedtime, Jimmy 00 PRN for sleep, # 30 tab, 0 Refill(s), Pharmacy: [facility] [id number], 170.18, cm, 06/22/19 13:48:00 CDT, Height, 86.818, kg, 06/22/19 13:48:00 CDT, Weight zolpidem 2020-02 Yes 10 mg = 1 M emoria mg oral 0-01 tab, PO, l tablet 22:04: Bedtime, [place] 00 PRN for sleep, # 30 tab, 0 Refill(s), Pharmacy: [facility] [id number], 170.18, cm, 06/22/19 13:48:00 CDT, Height, 86.818, kg, 06/22/19 13:48:00 CDT, Weight zolpidem 2020-02 Yes 10 mg = 1 M emoria mg oral 0-01 tab, PO, l tablet 22:04: Bedtime, Jimmy 00 PRN for sleep, # 30 tab, 0 Refill(s), Pharmacy: [facility] [id number], 170.18, cm, 06/22/19 13:48:00 CDT, Height, 86.818, kg, 06/22/19 13:48:00 CDT, Weight metoprolol 0 Yes See Memoria tartrate 25 8-19 Instructio l mg oral 16:56: ns, 1 tab Mary nn tablet 00 in the am and 0.5 in the pm, # 135 ea, 3 Refill(s), Pharmacy: [facility] [id number], 170.18, cm, 06/22/19 13:48:00 CDT, Height, 86.818, kg, 06/22/19 13:48:00 CDT, Weight metoprolol 0 Yes See Memoria tartrate 25 8-19 Instructio l mg oral 16:56: ns, 1 tab Mary nn tablet 00 in the am and 0.5 in the pm, # 135 ea, 3 Refill(s), Pharmacy: [facility] [id number], 170.18, cm, 06/22/19 13:48:00 CDT, Height, 86.818, kg, 06/22/19 13:48:00 CDT, Weight metoprolol 2020-0 Yes See Memoria tartrate 25 8-19 Instructio l mg oral 16:56: ns, 1 tab Mary nn tablet 00 in the am and 0.5 in the pm, # 135 ea, 3 Refill(s), Pharmacy: [facility] [id number], 170.18, cm, 06/22/19 13:48:00 CDT, Height, 86.818, kg, 06/22/19 13:48:00 CDT, Weight metoprolol 2020-0 Yes See Memoria tartrate 25 8-19 Instructio l mg oral 16:56: ns, 1 tab Mary nn tablet 00 in the am and 0.5 in the pm, # 135 ea, 3 Refill(s), Pharmacy: [facility] [id number], 170.18, cm, 06/22/19 13:48:00 CDT, Height, 86.818, kg, 06/22/19 13:48:00 CDT, Weight metoprolol 2020-0 Yes See Memoria tartrate 25 8-19 Instructio l mg oral 16:56: ns, 1 tab Mary nn tablet 00 in the am and 0.5 in the pm, # 135 ea, 3 Refill(s), Pharmacy: [facility] [id number], 170.18, cm, 06/22/19 13:48:00 CDT, Height, 86.818, kg, 06/22/19 13:48:00 CDT, Weight metoprolol 2020-0 Yes See Memoria tartrate 25 8-19 Instructio l mg oral 16:56: ns, 1 tab Mary nn tablet 00 in the am and 0.5 in the pm, # 135 ea, 3 Refill(s), Pharmacy: [facility] [id number], 170.18, cm, 06/22/19 13:48:00 CDT, Height, 86.818, kg, 06/22/19 13:48:00 CDT, Weight metoprolol 2021-0 Yes See Memoria tartrate 25 8-19 Instructio l mg oral 16:56: ns, 1 tab Mary nn tablet 00 in the am and 0.5 in the pm, # 135 ea, 3 Refill(s), Pharmacy: [facility] [id number], 170.18, cm, 06/22/19 13:48:00 CDT, Height, 86.818, kg, 06/22/19 13:48:00 CDT, Weight metoprolol 0 Yes See Memoria tartrate 25 8-19 Instructio l mg oral 16:56: ns, 1 tab Mary nn tablet 00 in the am and 0.5 in the pm, # 135 ea, 3 Refill(s), Pharmacy: [facility] [id number], 170.18, cm, 06/22/19 13:48:00 CDT, Height, 86.818, kg, 06/22/19 13:48:00 CDT, Weight metoprolol 0 Yes See Memoria tartrate 25 8-19 Instructio l mg oral 16:56: ns, 1 tab Mary nn tablet 00 in the am and 0.5 in the pm, # 135 ea, 3 Refill(s), Pharmacy: [facility] [id number], 170.18, cm, 06/22/19 13:48:00 CDT, Height, 86.818, kg, 06/22/19 13:48:00 CDT, Weight metoprolol 2020-0 Yes See Memoria tartrate 25 8-19 Instructio l mg oral 16:56: ns, 1 tab Mary nn tablet 00 in the am and 0.5 in the pm, # 135 ea, 3 Refill(s), Pharmacy: [facility] [id number], 170.18, cm, 06/22/19 13:48:00 CDT, Height, 86.818, kg, 06/22/19 13:48:00 CDT, Weight metoprolol 2020-0 Yes See Memoria tartrate 25 8-19 Instructio l mg oral 16:56: ns, 1 tab Mary nn tablet 00 in the am and 0.5 in the pm, # 135 ea, 3 Refill(s), Pharmacy: [facility] [id number], 170.18, cm, 06/22/19 13:48:00 CDT, Height, 86.818, kg, 06/22/19 13:48:00 CDT, Weight metoprolol 2020-0 Yes See Memoria tartrate 25 8-19 Instructio l mg oral 16:56: ns, 1 tab Mary nn tablet 00 in the am and 0.5 in the pm, # 135 ea, 3 Refill(s), Pharmacy: [facility] [id number], 170.18, cm, 06/22/19 13:48:00 CDT, Height, 86.818, kg, 06/22/19 13:48:00 CDT, Weight metoprolol 2020-0 Yes See Memoria tartrate 25 8-19 Instructio l mg oral 16:56: ns, 1 tab Mary nn tablet 00 in the am and 0.5 in the pm, # 135 ea, 3 Refill(s), Pharmacy: [facility] [id number], 170.18, cm, 06/22/19 13:48:00 CDT, Height, 86.818, kg, 06/22/19 13:48:00 CDT, Weight metoprolol 2020-0 Yes See Memoria tartrate 25 8-19 Instructio l mg oral 16:56: ns, 1 tab Mary nn tablet 00 in the am and 0.5 in the pm, # 135 ea, 3 Refill(s), Pharmacy: [facility] [id number], 170.18, cm, 06/22/19 13:48:00 CDT, Height, 86.818, kg, 06/22/19 13:48:00 CDT, Weight metoprolol 2020-0 Yes See Memoria tartrate 25 8-19 Instructio l mg oral 16:56: ns, 1 tab Mary nn tablet 00 in the am and 0.5 in the pm, # 135 ea, 3 Refill(s), Pharmacy: [facility] [id number], 170.18, cm, 06/22/19 13:48:00 CDT, Height, 86.818, kg, 06/22/19 13:48:00 CDT, Weight metoprolol 2020-0 Yes See Memoria tartrate 25 8-19 Instructio l mg oral 16:56: ns, 1 tab Mary nn tablet 00 in the am and 0.5 in the pm, # 135 ea, 3 Refill(s), Pharmacy: [facility] [id number], 170.18, cm, 06/22/19 13:48:00 CDT, Height, 86.818, kg, 06/22/19 13:48:00 CDT, Weight tamsulosin 2020-0 Yes = 1 cap, Mem oria 0.4 mg oral 7-28 PO, Daily, l capsule 15:55: # 90 [place] 00 unknown unit, 3 Refill(s), Pharmacy: [facility] [id number], 170.18, cm, 06/22/19 13:48:00 CDT, Height, 86.818, kg, 06/22/19 13:48:00 CDT, Weight tamsulosin 2020-0 Yes = 1 cap, Mem oria 0.4 mg oral 7-28 PO, Daily, l capsule 15:55: # 90 [place] 00 unknown unit, 3 Refill(s), Pharmacy: [facility] [id number], 170.18, cm, 06/22/19 13:48:00 CDT, Height, 86.818, kg, 06/22/19 13:48:00 CDT, Weight tamsulosin 2020-0 Yes = 1 cap, Mem oria 0.4 mg oral 7-28 PO, Daily, l capsule 15:55: # 90 [place] 00 unknown unit, 3 Refill(s), Pharmacy: [facility] [id number], 170.18, cm, 06/22/19 13:48:00 CDT, Height, 86.818, kg, 06/22/19 13:48:00 CDT, Weight tamsulosin 1-0 Yes = 1 cap, Mem oria 0.4 mg oral 7-28 PO, Daily, l capsule 15:55: # 90 [place] 00 unknown unit, 3 Refill(s), Pharmacy: [facility] [id number], 170.18, cm, 06/22/19 13:48:00 CDT, Height, 86.818, kg, 06/22/19 13:48:00 CDT, Weight tamsulosin 2020-0 Yes = 1 cap, Mem oria 0.4 mg oral 7-28 PO, Daily, l capsule 15:55: # 90 [place] 00 unknown unit, 3 Refill(s), Pharmacy: [facility] [id number], 170.18, cm, 06/22/19 13:48:00 CDT, Height, 86.818, kg, 06/22/19 13:48:00 CDT, Weight tamsulosin 1-0 Yes = 1 cap, Mem oria 0.4 mg oral 7-28 PO, Daily, l capsule 15:55: # 90 [place] 00 unknown unit, 3 Refill(s), Pharmacy: [facility] [id number], 170.18, cm, 06/22/19 13:48:00 CDT, Height, 86.818, kg, 06/22/19 13:48:00 CDT, Weight tamsulosin 2020-0 Yes = 1 cap, Mem oria 0.4 mg oral 7-28 PO, Daily, l capsule 15:55: # 90 [place] 00 unknown unit, 3 Refill(s), Pharmacy: [facility] [id number], 170.18, cm, 06/22/19 13:48:00 CDT, Height, 86.818, kg, 06/22/19 13:48:00 CDT, Weight tamsulosin 2020-0 Yes = 1 cap, Mem oria 0.4 mg oral 7-28 PO, Daily, l capsule 15:55: # 90 [place] 00 unknown unit, 3 Refill(s), Pharmacy: [facility] [id number], 170.18, cm, 06/22/19 13:48:00 CDT, Height, 86.818, kg, 06/22/19 13:48:00 CDT, Weight tamsulosin 1-0 Yes = 1 cap, Mem oria 0.4 mg oral 7-28 PO, Daily, l capsule 15:55: # 90 [place] 00 unknown unit, 3 Refill(s), Pharmacy: [facility] [id number], 170.18, cm, 06/22/19 13:48:00 CDT, Height, 86.818, kg, 06/22/19 13:48:00 CDT, Weight tamsulosin 2020-0 Yes = 1 cap, Mem oria 0.4 mg oral 7-28 PO, Daily, l capsule 15:55: # 90 [place] 00 unknown unit, 3 Refill(s), Pharmacy: [facility] [id number], 170.18, cm, 06/22/19 13:48:00 CDT, Height, 86.818, kg, 06/22/19 13:48:00 CDT, Weight tamsulosin 1-0 Yes = 1 cap, Mem oria 0.4 mg oral 7-28 PO, Daily, l capsule 15:55: # 90 [place] 00 unknown unit, 3 Refill(s), Pharmacy: [facility] [id number], 170.18, cm, 06/22/19 13:48:00 CDT, Height, 86.818, kg, 06/22/19 13:48:00 CDT, Weight tamsulosin 2020-0 Yes = 1 cap, Mem oria 0.4 mg oral 7-28 PO, Daily, l capsule 15:55: # 90 [place] 00 unknown unit, 3 Refill(s), Pharmacy: [facility] [id number], 170.18, cm, 06/22/19 13:48:00 CDT, Height, 86.818, kg, 06/22/19 13:48:00 CDT, Weight tamsulosin 2020-0 Yes = 1 cap, Mem oria 0.4 mg oral 7-28 PO, Daily, l capsule 15:55: # 90 [place] 00 unknown unit, 3 Refill(s), Pharmacy: [facility] [id number], 170.18, cm, 06/22/19 13:48:00 CDT, Height, 86.818, kg, 06/22/19 13:48:00 CDT, Weight tamsulosin 1-0 Yes = 1 cap, Mem oria 0.4 mg oral 7-28 PO, Daily, l capsule 15:55: # 90 [place] 00 unknown unit, 3 Refill(s), Pharmacy: [facility] [id number], 170.18, cm, 06/22/19 13:48:00 CDT, Height, 86.818, kg, 06/22/19 13:48:00 CDT, Weight tamsulosin 2020-0 Yes = 1 cap, Mem oria 0.4 mg oral 7-28 PO, Daily, l capsule 15:55: # 90 [place] 00 unknown unit, 3 Refill(s), Pharmacy: [facility] [id number], 170.18, cm, 06/22/19 13:48:00 CDT, Height, 86.818, kg, 06/22/19 13:48:00 CDT, Weight tamsulosin 2020-0 Yes = 1 cap, Mem oria 0.4 mg oral 7-28 PO, Daily, l capsule 15:55: # 90 [place] 00 unknown unit, 3 Refill(s), Pharmacy: [facility] [id number], 170.18, cm, 06/22/19 13:48:00 CDT, Height, 86.818, kg, 06/22/19 13:48:00 CDT, Weight pantoprazol 2020-0 Yes = 1 tab, Me moria e 40 mg 7-28 PO, Daily, l oral 15:53: # 90 tab, [place] enteric 00 3 coated Refill(s), tablet Pharmacy: [facility] [id number], 170.18, cm, 06/22/19 13:48:00 CDT, Height, 86.818, kg, 06/22/19 13:48:00 CDT, Weight pantoprazol 2020-0 Yes = 1 tab, Me moria e 40 mg 7-28 PO, Daily, l oral 15:53: # 90 tab, [place] enteric 00 3 coated Refill(s), tablet Pharmacy: [facility] [id number], 170.18, cm, 06/22/19 13:48:00 CDT, Height, 86.818, kg, 06/22/19 13:48:00 CDT, Weight pantoprazol 2020-0 Yes = 1 tab, Me moria e 40 mg 7-28 PO, Daily, l oral 15:53: # 90 tab, [place] enteric 00 3 coated Refill(s), tablet Pharmacy: [facility] [id number], 170.18, cm, 06/22/19 13:48:00 CDT, Height, 86.818, kg, 06/22/19 13:48:00 CDT, Weight pantoprazol 2020-0 Yes = 1 tab, Me moria e 40 mg 7-28 PO, Daily, l oral 15:53: # 90 tab, [place] enteric 00 3 coated Refill(s), tablet Pharmacy: [facility] [id number], 170.18, cm, 06/22/19 13:48:00 CDT, Height, 86.818, kg, 06/22/19 13:48:00 CDT, Weight pantoprazol 2020-0 Yes = 1 tab, Me moria e 40 mg 7-28 PO, Daily, l oral 15:53: # 90 tab, [place] enteric 00 3 coated Refill(s), tablet Pharmacy: [facility] [id number], 170.18, cm, 06/22/19 13:48:00 CDT, Height, 86.818, kg, 06/22/19 13:48:00 CDT, Weight pantoprazol 2020-0 Yes = 1 tab, Me moria e 40 mg 7-28 PO, Daily, l oral 15:53: # 90 tab, [place] enteric 00 3 coated Refill(s), tablet Pharmacy: [facility] [id number], 170.18, cm, 06/22/19 13:48:00 CDT, Height, 86.818, kg, 06/22/19 13:48:00 CDT, Weight pantoprazol 2020-0 Yes = 1 tab, Me moria e 40 mg 7-28 PO, Daily, l oral 15:53: # 90 tab, [place] enteric 00 3 coated Refill(s), tablet Pharmacy: [facility] [id number], 170.18, cm, 06/22/19 13:48:00 CDT, Height, 86.818, kg, 06/22/19 13:48:00 CDT, Weight pantoprazol 2020-0 Yes = 1 tab, Me moria e 40 mg 7-28 PO, Daily, l oral 15:53: # 90 tab, [place] enteric 00 3 coated Refill(s), tablet Pharmacy: [facility] [id number], 170.18, cm, 06/22/19 13:48:00 CDT, Height, 86.818, kg, 06/22/19 13:48:00 CDT, Weight pantoprazol 2020-0 Yes = 1 tab, Me moria e 40 mg 7-28 PO, Daily, l oral 15:53: # 90 tab, [place] enteric 00 3 coated Refill(s), tablet Pharmacy: [facility] [id number], 170.18, cm, 06/22/19 13:48:00 CDT, Height, 86.818, kg, 06/22/19 13:48:00 CDT, Weight pantoprazol 2020-0 Yes = 1 tab, Me moria e 40 mg 7-28 PO, Daily, l oral 15:53: # 90 tab, [place] enteric 00 3 coated Refill(s), tablet Pharmacy: [facility] [id number], 170.18, cm, 06/22/19 13:48:00 CDT, Height, 86.818, kg, 06/22/19 13:48:00 CDT, Weight pantoprazol 2020-0 Yes = 1 tab, Me moria e 40 mg 7-28 PO, Daily, l oral 15:53: # 90 tab, [place] enteric 00 3 coated Refill(s), tablet Pharmacy: [facility] [id number], 170.18, cm, 06/22/19 13:48:00 CDT, Height, 86.818, kg, 06/22/19 13:48:00 CDT, Weight pantoprazol 2020-0 Yes = 1 tab, Me moria e 40 mg 7-28 PO, Daily, l oral 15:53: # 90 tab, [place] enteric 00 3 coated Refill(s), tablet Pharmacy: [facility] [id number], 170.18, cm, 06/22/19 13:48:00 CDT, Height, 86.818, kg, 06/22/19 13:48:00 CDT, Weight pantoprazol 2020-0 Yes = 1 tab, Me moria e 40 mg 7-28 PO, Daily, l oral 15:53: # 90 tab, [place] enteric 00 3 coated Refill(s), tablet Pharmacy: [facility] [id number], 170.18, cm, 06/22/19 13:48:00 CDT, Height, 86.818, kg, 06/22/19 13:48:00 CDT, Weight pantoprazol 2020-0 Yes = 1 tab, Me moria e 40 mg 7-28 PO, Daily, l oral 15:53: # 90 tab, [place] enteric 00 3 coated Refill(s), tablet Pharmacy: [facility] [id number], 170.18, cm, 06/22/19 13:48:00 CDT, Height, 86.818, kg, 06/22/19 13:48:00 CDT, Weight pantoprazol 1-0 Yes = 1 tab, Me moria e 40 mg 7-28 PO, Daily, l oral 15:53: # 90 tab, [place] enteric 00 3 coated Refill(s), tablet Pharmacy: [facility] [id number], 170.18, cm, 06/22/19 13:48:00 CDT, Height, 86.818, kg, 06/22/19 13:48:00 CDT, Weight pantoprazol 2020-0 Yes = 1 tab, Me moria e 40 mg 7-28 PO, Daily, l oral 15:53: # 90 tab, [place] enteric 00 3 coated Refill(s), tablet Pharmacy: [facility] [id number], 170.18, cm, 06/22/19 13:48:00 CDT, Height, 86.818, kg, 06/22/19 13:48:00 CDT, Weight sertraline 2020-0 Yes 50 mg = 1 Me moria 50 mg oral 7-28 tab, PO, l tablet 15:52: Daily, # [place] 00 90 tab, 3 Refill(s), Pharmacy: [facility] [id number], 170.18, cm, 06/22/19 13:48:00 CDT, Height, 86.818, kg, 06/22/19 13:48:00 CDT, Weight sertraline 1-0 Yes 50 mg = 1 Me moria 50 mg oral 7-28 tab, PO, l tablet 15:52: Daily, # [place] 00 90 tab, 3 Refill(s), Pharmacy: [facility] [id number], 170.18, cm, 06/22/19 13:48:00 CDT, Height, 86.818, kg, 06/22/19 13:48:00 CDT, Weight sertraline 2021-0 Yes 50 mg = 1 Me moria 50 mg oral 7-28 tab, PO, l tablet 15:52: Daily, # [place] 00 90 tab, 3 Refill(s), Pharmacy: [facility] [id number], 170.18, cm, 06/22/19 13:48:00 CDT, Height, 86.818, kg, 06/22/19 13:48:00 CDT, Weight sertraline 1-0 Yes 50 mg = 1 Me moria 50 mg oral 7-28 tab, PO, l tablet 15:52: Daily, # [place] 00 90 tab, 3 Refill(s), Pharmacy: [facility] [id number], 170.18, cm, 06/22/19 13:48:00 CDT, Height, 86.818, kg, 06/22/19 13:48:00 CDT, Weight sertraline 1-0 Yes 50 mg = 1 Me moria 50 mg oral 7-28 tab, PO, l tablet 15:52: Daily, # [place] 00 90 tab, 3 Refill(s), Pharmacy: [facility] [id number], 170.18, cm, 06/22/19 13:48:00 CDT, Height, 86.818, kg, 06/22/19 13:48:00 CDT, Weight sertraline 1-0 Yes 50 mg = 1 Me moria 50 mg oral 7-28 tab, PO, l tablet 15:52: Daily, # [place] 00 90 tab, 3 Refill(s), Pharmacy: [facility] [id number], 170.18, cm, 06/22/19 13:48:00 CDT, Height, 86.818, kg, 06/22/19 13:48:00 CDT, Weight sertraline 2021-0 Yes 50 mg = 1 Me moria 50 mg oral 7-28 tab, PO, l tablet 15:52: Daily, # [place] 00 90 tab, 3 Refill(s), Pharmacy: [facility] [id number], 170.18, cm, 06/22/19 13:48:00 CDT, Height, 86.818, kg, 06/22/19 13:48:00 CDT, Weight sertraline 2021-0 Yes 50 mg = 1 Me moria 50 mg oral 7-28 tab, PO, l tablet 15:52: Daily, # [place] 00 90 tab, 3 Refill(s), Pharmacy: [facility] [id number], 170.18, cm, 06/22/19 13:48:00 CDT, Height, 86.818, kg, 06/22/19 13:48:00 CDT, Weight sertraline 2021-0 Yes 50 mg = 1 Me moria 50 mg oral 7-28 tab, PO, l tablet 15:52: Daily, # [place] 00 90 tab, 3 Refill(s), Pharmacy: [facility] [id number], 170.18, cm, 06/22/19 13:48:00 CDT, Height, 86.818, kg, 06/22/19 13:48:00 CDT, Weight sertraline 2021-0 Yes 50 mg = 1 Me moria 50 mg oral 7-28 tab, PO, l tablet 15:52: Daily, # [place] 00 90 tab, 3 Refill(s), Pharmacy: [facility] [id number], 170.18, cm, 06/22/19 13:48:00 CDT, Height, 86.818, kg, 06/22/19 13:48:00 CDT, Weight sertraline 2021-0 Yes 50 mg = 1 Me moria 50 mg oral 7-28 tab, PO, l tablet 15:52: Daily, # [place] 00 90 tab, 3 Refill(s), Pharmacy: [facility] [id number], 170.18, cm, 06/22/19 13:48:00 CDT, Height, 86.818, kg, 06/22/19 13:48:00 CDT, Weight sertraline 2021-0 Yes 50 mg = 1 Me moria 50 mg oral 7-28 tab, PO, l tablet 15:52: Daily, # [place] 00 90 tab, 3 Refill(s), Pharmacy: [facility] [id number], 170.18, cm, 06/22/19 13:48:00 CDT, Height, 86.818, kg, 06/22/19 13:48:00 CDT, Weight sertraline 2021-0 Yes 50 mg = 1 Me moria 50 mg oral 7-28 tab, PO, l tablet 15:52: Daily, # [place] 00 90 tab, 3 Refill(s), Pharmacy: [facility] [id number], 170.18, cm, 06/22/19 13:48:00 CDT, Height, 86.818, kg, 06/22/19 13:48:00 CDT, Weight sertraline 2020-0 Yes 50 mg = 1 Me moria 50 mg oral 7-28 tab, PO, l tablet 15:52: Daily, # [place] 00 90 tab, 3 Refill(s), Pharmacy: [facility] [id number], 170.18, cm, 06/22/19 13:48:00 CDT, Height, 86.818, kg, 06/22/19 13:48:00 CDT, Weight sertraline 2020-0 Yes 50 mg = 1 Me moria 50 mg oral 7-28 tab, PO, l tablet 15:52: Daily, # [place] 00 90 tab, 3 Refill(s), Pharmacy: [facility] [id number], 170.18, cm, 06/22/19 13:48:00 CDT, Height, 86.818, kg, 06/22/19 13:48:00 CDT, Weight sertraline 2020-0 Yes 50 mg = 1 Me moria 50 mg oral 7-28 tab, PO, l tablet 15:52: Daily, # [place] 00 90 tab, 3 Refill(s), Pharmacy: [facility] [id number], 170.18, cm, 06/22/19 13:48:00 CDT, Height, 86.818, kg, 06/22/19 13:48:00 CDT, Weight PreserVisio 2020-0 Yes 0 Memori a n AREDS 2 7-28 Refill(s) l 15:34: [place] 00 PreserVisio 2020-0 Yes 0 Memori a n AREDS 2 7-28 Refill(s) l 15:34: [place] 00 PreserVisio 2020-0 Yes 0 Memori a n AREDS 2 7-28 Refill(s) l 15:34: [place] 00 PreserVisio 2020-0 Yes 0 Memori a n AREDS 2 7-28 Refill(s) l 15:34: [place] 00 PreserVisio 0 Yes 0 Memori a n AREDS 2 7-28 Refill(s) l 15:34: PreserVisio 0 Yes 0 Memori a n AREDS 2 7-28 Refill(s) l 15:34: PreserVisio 0 Yes 0 Memori a n AREDS 2 7-28 Refill(s) l 15:34: PreserVisio Yes 0 Memori a n AREDS 2 7-28 Refill(s) l 15:34: PreserVisio 0 Yes 0 Memori a n AREDS 2 7-28 Refill(s) l 15:34: PreserVisio 0 Yes 0 Memori a n AREDS 2 7-28 Refill(s) l 15:34: PreserVisio 0 Yes 0 Memori a n AREDS 2 7-28 Refill(s) l 15:34: PreserVisio 0 Yes 0 Memori a n AREDS 2 7-28 Refill(s) l 15:34: PreserVisio 0 Yes 0 Memori a n AREDS 2 7-28 Refill(s) l 15:34: PreserVisio 0 Yes 0 Memori a n AREDS 2 7-28 Refill(s) l 15:34: PreserVisio 0 Yes 0 Memori a n AREDS 2 7-28 Refill(s) l 15:34: PreserVisio 0 Yes 0 Memori a n AREDS 2 7-28 Refill(s) l 15:34: gabapentin 0 Yes 300 mg = 1 M emoria 300 mg oral 7-28 cap, PO, l capsule 15:32: TID, 0 Refill(s) gabapentin 0 Yes 300 mg = 1 M emoria 300 mg oral 7-28 cap, PO, l capsule 15:32: TID, 0 Refill(s) gabapentin 0 Yes 300 mg = 1 M emoria 300 mg oral 7-28 cap, PO, l capsule 15:32: TID, 0 [place] 00 Refill(s) gabapentin 2020-0 Yes 300 mg [...] cap, PO, l capsule 15:32: TID, 0 [place] 00 Refill(s) gabapentin 2020-0 Yes 300 mg = 1 M emoria 300 mg oral 7-28 cap, PO, l capsule 15:32: TID, 0 [place] 00 Refill(s) gabapentin 2020-0 Yes 300 mg = 1 M emoria 300 mg oral 7-28 cap, PO, l capsule 15:32: TID, 0 [place] 00 Refill(s) gabapentin 2020-0 Yes 300 mg [...] cap, PO, l capsule 15:32: TID, 0 [place] 00 Refill(s) gabapentin 2020-0 Yes 300 mg = 1 M emoria 300 mg oral 7-28 cap, PO, l capsule 15:32: TID, 0 [place] 00 Refill(s) gabapentin 2020-0 Yes 300 mg = 1 M emoria 300 mg oral 7-28 cap, PO, l capsule 15:32: TID, 0 [place] 00 Refill(s) gabapentin 0 Yes 300 mg = 1 M emoria 300 mg oral 7-28 cap, PO, l capsule 15:32: TID, 0 [place] 00 Refill(s) furosemide Yes 40 mg = 1 Me moria 40 mg oral 7-28 tab, PO, l tablet 15:30: Daily, 0 [place] 00 Refill(s) furosemide Yes 40 mg = 1 Me moria 40 mg oral 7-28 tab, PO, l tablet 15:30: Daily, 0 [place] 00 Refill(s) furosemide Yes 40 mg = 1 Me moria 40 mg oral 7-28 tab, PO, l tablet 15:30: Daily, 0 [place] 00 Refill(s) furosemide Yes 40 mg = 1 Me moria 40 mg oral 7-28 tab, PO, l tablet 15:30: Daily, 0 [place] 00 Refill(s) furosemide Yes 40 mg = 1 Me moria 40 mg oral 7-28 tab, PO, l tablet 15:30: Daily, 0 [place] 00 Refill(s) furosemide Yes 40 mg = [...] 15:30: Daily, 0 [place] 00 Refill(s) furosemide 0 Yes 40 mg = 1 Me moria 40 mg oral 7-28 tab, PO, l tablet 15:30: Daily, 0 Jimmy Refill(s) furosemide 0 Yes 40 mg = 1 Me moria 40 mg oral 7-28 tab, PO, l tablet 15:30: Daily, 0 [place] 00 Refill(s) furosemide 0 Yes 40 mg = 1 Me moria 40 mg oral 7-28 tab, PO, l tablet 15:30: Daily, 0 [place] 00 Refill(s) furosemide Yes 40 mg = [...] mg = 1 Me moria mg tablet, -28 tab, PO, l enteric 15:29: Daily, # [place] n coated 00 90 tab, 3 Refill(s) aspirin 81 Yes 81 mg = 1 Me moria mg tablet, -28 tab, PO, l enteric 15:29: Daily, # [...] coated 00 90 tab, 3 Refill(s) gabapentin 2020-0 2020- No 100mg Q.5D Take 100 M [...] Take 10 mg [facility] (AMBIEN) 10 2-13 02-[address] mg tablet 17:35: 00:00 nightly. Hos im[facility] 37 :00 l aspirin 2020- No 81mg QD Take 81 mg [facility] (ECOTRIN) 2-13 02-[address] 81 MG 17:35: 00:00 daily. [facility] enteric 37 :00 l coated tablet traZODone 2020- No 100mg QD Take 100 [facility] (DESYREL) -13 02-[address] 100 MG 17:35: [...] (two) Hospita 31 times a l day. [place] twice daily diphenhydrA Yes 25mg Take 25 [...] 300mg QD Take 1 [facility] (NEURONTIN) 2- 03-[address] 300 mg 00:00: 04:59 (300 mg Hospita capsule 00 :00 total) by l mouth nightly for 30 days. aspirin 0 2020- No 81mg Q.5D Take 1 [facility] (ECOTRIN) 2-15 tablet (81 st 81 MG 00:00: 04:59 mg total) Hospit a enteric 00 :00 by mouth 2 l coated (two) tablet times a day for 30 days. traZODone 2020- No 150mg QD Take 1 Meth herminia (DESYREL) 2 03-[address] 150 MG 00:00: 04:59 (150 mg Hospita tablet 00 :00 total) by l mouth nightly for 30 days. zolpidem 0 2021- No 5mg QD Take 1 [facility] (AMBIEN) 5 2-12 03-15 tablet (5 st MG tablet 00:00: 04:59 mg total) Ho spita 00 :00 by mouth l nightly for 30 days. sulfamethox 1{tbl} QD Take 1 M [facility] azole-trime 9-22 02-[address] thoprim 00:00: 00:00 mouth [facility]ospita (Bactrim) 00 :00 daily. l 400-80 mg per tablet sulfamethox TAKE ONE M ethodi azole-trime 7-18 - TABLET BY st thoprim 00:00: 00:00 MOUTH Hospita (BACTRIM 00 :00 DAILY l DS) 800-160 mg per tablet [facility] 2016-02 Yes 3.75g Take 3.[address] [facility] HCL 2-15 g by mouth [facility] (WELCHOL 17:11: 2 (two) Medica l ORAL) 46 times Center daily with breakfast and dinner . coenzyme 2016-02 Yes [address] [facility] Q10 100 mg 2-15 [facility] Chew 17:11: [address] 500 2016-02 Yes [address] [facility] MG CR 2-15 [facility] capsule 17:11: [address] COLESEVELAM 2016-02 Yes 3.75g Take 3.[address] [facility] HCL 2-15 g by mouth [facility] (WELCHOL 17:11: 2 (two) Medica l ORAL) 46 times Center daily with breakfast and dinner . coenzyme 2016-02 Yes [address] [facility] Q10 100 mg 2-15 [facility] Chew 17:11: [address] 500 2016-02 Yes [address] [facility] MG CR 2-15 [facility] capsule 17:11: [address] zolpidem 2016-02 Yes 10mg Take [address] [facility] [facility] (AMBIEN) 10 2-15 by mouth [facility] mg tablet 17:10: every Medical night as Center needed for Insomnia. DULoxetine [...] 5-12 [facility] mg tablet 00:00: Medical 00 [place] fluticasone 2014-0 Yes 2{spray Q.5D [address] [facility] (FLONASE) 512 } by Nasal [facility] 50 00:00: route [...] 00:00: times Medical tablet 00 daily . [place] nisoldipine Yes 34mg QD 34 mg [facility] [...] 00:00: times Medical tablet 00 daily . [place] nisoldipine 2021- No 34mg QD [address] [facility] [facility] (SULAR) 34 5-12 10-29 daily . [facility] 24 hr 00:00: 00:00 Medical tablet 00 :00 [place] nisoldipine 2021- No 34mg QD [address] [facility] [facility] (SULAR) 34 5-12 10-29 daily . [facility] 24 hr 00:00: 00:00 Medical tablet 00 :00 [place] nisoldipine 2021- No 34mg QD [address] [facility] (SULAR) 34 5-12 10-29 daily . [facility] 24 hr 00:00: 00:00 Medical tablet 00 :00 [place] nisoldipine 2021- No 34mg QD [address] [facility] (SULAR) 34 5-12 10-29 daily . [facility] 24 hr 00:00: 00:00 Medical tablet 00 :00 [place] nisoldipine 2021- No 34mg QD [address] [facility] (SULAR) 34 5-12 10-29 daily . [facility] 24 hr 00:00: 00:00 Medical tablet 00 :00 [place] nisoldipine 2021- No 34mg QD [address] [facility] (SULAR) 34 5-12 10-29 daily . [facility] 24 hr 00:00: 00:00 Medical tablet 00 :00 [place] nisoldipine 2021- No 34mg QD [address] (SULAR) 34 5-12 10-29 daily . [facility] 24 hr 00:00: 00:00 Medical tablet 00 :00 [place] metoprolol 2020- No 25mg QD Take 25 mg [facility] tartrate -12 02-[address] (LOPRESSOR) 00:00: 00:00 daily. [facility] 50 MG 00 :00 l tablet CLOPIDOGREL Yes TAKE 1 [facility] BISULFATE 1-08 TABLET BY l 75 MG TABS 10:35: MOUTH [place] n 00 DAILY NISOLDIPINE Yes TAKE 1 [facility] ER 34 MG 1-08 TABLET BY l [id number] 10:35: MOUTH [place] 00 DAILY LOSARTAN Yes TAKE 1 [facility] POTASSIUM 1-08 TABLET BY l 100 MG TABS 10:35: MOUTH Mary nn 00 DAILY CYMBALTA 60 Yes TAKE 1 [facility] MG CPEP 1-08 TABLET BY l 10:35: MOUTH [place] DAILY PANTOPRAZOL Yes TAKE 1 [facility] E SODIUM 40 1-08 TABLET BY l MG TBEC 10:35: MOUTH [place] 00 DAILY CLOPIDOGREL Yes TAKE 1 Evert dora BISULFATE 1-08 TABLET BY l 75 MG TABS 10:35: MOUTH [place] n 00 DAILY NISOLDIPINE Yes TAKE 1 Evert dora ER 34 MG 1-08 TABLET BY l [id number] 10:35: MOUTH [place] 00 DAILY LOSARTAN Yes TAKE 1 [facility] POTASSIUM 1-08 TABLET BY l 100 MG TABS 10:35: MOUTH Mary nn 00 DAILY CYMBALTA 60 Yes TAKE 1 Evert dora MG CPEP 1-08 TABLET BY l 10:35: MOUTH Jimmy DAILY PANTOPRAZOL Yes TAKE 1 Evert dora E SODIUM 40 1-08 TABLET BY l MG TBEC 10:35: MOUTH [place] DAILY WELCHOL Yes 2 packs [facility] 3.75 [...] TABLET BY l MG TABS 14:45: MOUTH [place] 00 DAILY LOSARTAN 2012-02 Yes TAKE 1 [facility] POTASSIUM 2-13 TABLET BY l 100 MG TABS 14:45: MOUTH Mary nn 00 DAILY WELCHOL 2012-02 Yes TAKE 1 [facility] 3.75 GM 2-13 TABLET BY l PACK 14:45: MOUTH [place] 00 DAILY CYMBALTA 60 2012-02 Yes TAKE 1 Evert dora MG CPEP 2-13 TABLET BY l 14:45: MOUTH [place] 00 DAILY PANTOPRAZOL 2012-02 Yes TAKE 1 Evert dora E SODIUM 40 2-13 TABLET BY l MG TBEC 14:45: MOUTH Jimmy 00 DAILY METOPROLOL 2012-02 Yes TAKE 1 [facility] ia TARTRATE 50 2-13 TABLET BY l MG TABS 14:45: MOUTH [place] 00 DAILY LOSARTAN 2012-02 Yes TAKE 1 [facility] POTASSIUM 2-13 TABLET BY l 100 MG TABS 14:45: MOUTH Mary nn 00 DAILY WELCHOL 2012-02 Yes TAKE 1 [facility] 3.75 GM 2-13 TABLET BY l PACK 14:45: MOUTH [place] 00 DAILY CYMBALTA 60 2012-02 Yes TAKE 1 Evert dora MG CPEP 2-13 TABLET BY l 14:45: MOUTH Jimmy 00 DAILY PANTOPRAZOL 2012-02 Yes TAKE 1 Evert dora E SODIUM 40 2-13 TABLET BY l MG TBEC 14:45: MOUTH [place] 00 DAILY PLAVIX 75 2012-02 No TAKE 1 [facility] a MG TABS 2-13 TABLET BY l 00:00: MOUTH Jimmy 00 DAILY OCUVITE EYE 2012-02 Yes [facility] a + MULTI 2-13 l TABS 00:00: [place] 00 COQ10 CAPS 2012-02 Yes [facility] 2-13 l 00:00: Jimmy 00 ASPIRIN 81 2012-02 Yes [facility] MG TABS 2-13 l 00:00: [place] 00 FLOMAX 0.4 2012-02 Yes one every Me moria MG CAPS 2-13 evening. l 00:00: [place] 00 LUNESTA 3 2012-02 Yes TAKE 1 [...] Yes [facility] MG TABS 2-13 l 00:00: 00 FLOMAX 0.4 2012-02 Yes one every Me moria MG CAPS 2-13 evening. l 00:00: LUNESTA 3 2012-02 Yes TAKE 1 [facility] a MG TABS 2-13 TABLET BY l 00:00: MOUTH DAILY LUNESTA 3 2012-02 Yes TAKE 1 [facility] a MG TABS 2-13 TABLET BY l 00:00: MOUTH DAILY FLOMAX 0.4 2012-02 No one every Me moria MG CAPS 2-13 evening. l 00:00: FLUTICASONE Yes 1 spray in [facility] PROPIONATE 6-05 each l 50 MCG/ACT 00:00: [place] Her garcia SUSP 00 twice day FLUTICASONE Yes 1 spray in [facility] PROPIONATE 6-05 each l 50 MCG/ACT 00:00: [place] Her garcia SUSP twice day FLUTICASONE Yes 1 spray in [facility] PROPIONATE 6-05 each l 50 MCG/ACT 00:00: [place] Her garcia SUSP 00 twice day FLUTICASONE Yes 1 spray in [facility] PROPIONATE 6-05 each l 50 MCG/ACT 00:00: [place] Her garcia SUSP 00 twice day Immunizations Ordered Immunization Filled Immunization Date Status Commen ts Source Name Name [id number] 2020-07-04 Completed [facility] [id number] 00:00:00 [facility] jennie [id number] 2020-07-04 Completed [facility] rial [id number] 00:00:00 [facility] jennie [id number] 2020-07-04 Completed [facility]vert rial [id number]-[id number] 00:00:00 [facility] jennie [id number] 2020-07-04 Completed [facility] NABNT-[id number] 00:00:00 [facility] jennie [id number] 2020-07-04 Completed [facility] NABNT-[id number] 00:00:00 [facility] jennie [id number]-[id number] 2020-07-04 Completed [facility] NABNT-[id number] 00:00:00 Herm jennie GICR-CsW-6EHIAS-mR 2020-07-04 Completed [facility] NABNT-[id number] 00:00:00 Herm jennie ROAQ-TwW-2RPWNA-mR 2020-07-04 Completed [facility] NABNT-[id number] 00:00:00 Herm jennie PTHE-EeB-4WXXFI-mR 2020-07-04 Completed [facility] NABNT-[id number] 00:00:00 Herm jennie TXVH-JwG-7VPSZQ-mR 2020-07-04 Completed [facility] NABNT-[id number] 00:00:00 Herm jennie EFYW-EoF-0KDEFE-mR 2020-07-04 Completed [facility] NABNT-[id number] 00:00:00 Herm jennie HEFD-ItA-3FPNUG-mR 2020-07-04 Completed [facility] NABNT-[id number] 00:00:00 Herm jennie BFEW-RfH-0ZKFGS-mR 2020-07-04 Completed [facility] NABNT-052o1mhoGAIMMS 00:00:00 Herm jennie PPTR-YtQ-9JWJAN-mR 2020-07-04 Completed [facility] NABNT-[id number] 00:00:00 Herm jennie QDSV-KjS-0TEGBZ-mR 2020-07-04 Completed [facility] NABNT-732i9gcbEYHWSE 00:00:00 Herm jennie QFEO-XbV-6XGEYN-mR 2020-07-04 Completed [facility] NABNT-484g9urySHCLMF 00:00:00 Herm jennie ACDL-EgX-2KTEPP-19mR 2020-06-09 Completed [facility] NABNT-[id number] 00:00:00 Herm jennie JPXR-CpT-6TQPYU-mR 2020-06-09 Completed [facility] NABNT-801o3yqdUWPEPW 00:00:00 Herm jennie YVNZ-KlO-0JDNQL-mR 2020-06-09 Completed [facility] NABNT-014g1oocCUPYWS 00:00:00 Herm jennie EGMJ-TbP-4TEBYB-mR 2020-06-09 Completed [facility] NABNT-[id number] 00:00:00 Herm jennie YVYM-NkR-4SVDCD-19mR 2020-06-09 Completed [facility] NABNT-[id number] 00:00:00 Herm jennie ASHD-KhF-8LFZKS-mR 2020-06-09 Completed [facility] NABNT-[id number] 00:00:00 Herm jennie BRED-LaP-8PHYHQ-mR 2020-06-09 Completed [facility] NABNT-[id number] 00:00:00 Herm jennie VLSF-TdH-3LGCDE-19mR 2020-06-09 Completed [facility] NABNT-[id number] 00:00:00 Herm jennie QAVK-BxR-5QZSSV-mR 2020-06-09 Completed [facility] NABNT-412o4cnkHKJRBA 00:00:00 Herm jennie OJFU-ZkB-9SFAYP-mR 2020-06-09 Completed [facility] NABNT-[id number] 00:00:00 Herm jennie BAVN-NiF-1QQSGL-19mR 2020-06-09 Completed [facility] NABNT-251o3msrFGQJGK 00:00:00 Herm jennie ZYXJ-WhD-6SAANZ-mR 2020-06-09 Completed [facility] NABNT-[id number] 00:00:00 Herm jennie EPHE-PuY-9NVPUO-19mR 2020-06-09 Completed [facility] NABNT-[id number] 00:00:00 Herm jennie CNES-RuP-9THRNX-mR 2020-06-09 Completed [facility] NABNT-[id number] 00:00:00 Herm jennie CECS-GyT-2SHTTO-mR 2020-06-09 Completed [facility] NABNT-220g5epnTWJUPI 00:00:00 Herm jennie PJTG-LlL-7VVPTQ-mR 2020-06-09 Completed [facility] NABNT-[id number] 00:00:00 Herm jennie influenza virus 2018-08-11 Completed [...] 2018-08-11 [facility]pleted [facility], inactivated 00:00:00 Herm ejnnie influenza virus 2018-08-11 Completed [facility], inactivated [...] influenza virus 2017-02-11 Completed [facility] vaccine, 00:00:00 [place] inactivated<sup>1</s up> influenza virus 2017-02-11 Completed [facility] vaccine, 00:00:00 [place] inactivated<sup>1</s up> influenza virus 2017-02-11 Completed [facility] vaccine, 00:00:00 Jimmy inactivated<sup>1</s up> influenza virus 2017-02-11 Completed [facility] vaccine, 00:00:00 Jimmy inactivated<sup>1</s up> influenza virus 2017-02-11 Completed [facility] vaccine, 00:00:00 [place] inactivated<sup>1</s up> influenza virus 2017-02-11 Completed [facility] vaccine, 00:00:00 [place] inactivated<sup>1</s up> influenza virus 2017-02-11 Completed [facility] vaccine, 00:00:00 [place] inactivated<sup>1</s up> influenza virus 2017-02-11 Completed [facility] vaccine, 00:00:00 [place] inactivated<sup>1</s up> influenza virus 2017-02-11 Completed [facility] vaccine, 00:00:00 [place] inactivated<sup>1</s up> influenza virus 2017-02-11 Completed [facility] vaccine, 00:00:00 Jimmy inactivated<sup>1</s up> influenza virus 2017-02-11 Completed [facility] vaccine, 00:00:00 [place] inactivated<sup>1</s up> influenza virus 2017-02-11 Completed [facility] vaccine, 00:00:00 Jimmy inactivated<sup>1</s up> influenza virus 2017-02-11 Completed [facility] vaccine, 00:00:00 [place] inactivated<sup>1</s up> influenza virus 2017-02-11 Completed [facility] [...] Herm jennie sup>2</sup> pneumococcal 2007-06-14 Completed [facility] 23-valent 14:23:57 Jimmy vaccine<sup>3</sup> pneumococcal 2007-06-14 Completed [facility] 23-valent 14:23:57 [place] vaccine<sup>3</sup> pneumococcal 2007-06-14 Completed [facility] immunization 14:23:57 Jimmy administered pneumococcal 2007-06-14 Completed [facility] 23-valent 14:23:57 [place] vaccine<sup>3</sup> pneumococcal 2007-06-14 Completed [facility] 23-valent 14:23:57 Jimmy vaccine<sup>3</sup> pneumococcal 2007-06-14 Completed [facility] 23-valent 14:23:57 [place] vaccine<sup>3</sup> pneumococcal 2007-06-14 Completed [facility] 23-valent 14:23:57 [place] vaccine<sup>3</sup> pneumococcal 2007-06-14 Completed [facility] 23-valent 14:23:57 [place] vaccine<sup>3</sup> pneumococcal 2007-06-14 Completed [facility] 23-valent 14:23:57 Jimmy vaccine<sup>3</sup> pneumococcal 2007-06-14 Completed [facility] 23-valent 14:23:57 Jimmy vaccine<sup>3</sup> pneumococcal 2007-06-14 Completed [facility] 23-valent 14:23:57 [place] vaccine<sup>3</sup> pneumococcal 2007-06-14 Completed [facility] immunization 14:23:57 [place] administered pneumococcal 2007-06-14 Completed [facility] 23-valent 14:23:57 [place] vaccine<sup>3</sup> pneumococcal 2007-06-14 Completed [facility] 23-valent 14:23:57 [place] vaccine<sup>3</sup> pneumococcal 2007-06-14 Completed [facility] 23-valent 14:23:57 Jimmy vaccine<sup>3</sup> pneumococcal 2007-06-14 Completed [facility] 23-valent 14:23:57 [place] vaccine<sup>3</sup> pneumococcal 2007-06-14 Completed [facility] 23-valent 14:23:57 [place] vaccine<sup>3</sup> pneumococcal 2007-06-14 Completed [facility] 23-valent 14:23:57 [place] vaccine<sup>3</sup> Hx hepatitis B 2006-04-11 Completed [facility] vaccine<sup>4</sup> [...] 2006-04-11 Completed [facility] vaccine<sup>4</sup> 15:23:57 Mary nn varicella virus 2006-03-20 Completed [facility] vaccine<sup>7</sup> 15:23:57 Mary nn varicella virus 2006-03-20 Completed [facility] vaccine<sup>7</sup> 15:23:57 Mary nn chicken pox 2006-03-20 Completed [facility] immunization #1 15:23:57 [place] varicella virus 2006-03-20 Completed [facility] vaccine<sup>7</sup> 15:23:57 [...] pox 2006-03-20 Completed [facility] immunization #1 15:23:57 [place] varicella virus 2006-03-20 Completed [facility] vaccine<sup>7</sup> 15:23:57 [...] zoster vaccine 2006-03-20 Completed [facility] live<sup>8</sup> 06:00:00 [place] zoster vaccine 2006-03-20 Completed [facility] live<sup>8</sup> 06:00:00 Jimmy zoster vaccine 2006-03-20 Completed [facility] live<sup>8</sup> 06:00:00 [place] zoster vaccine 2006-03-20 Completed [facility] live<sup>8</sup> 06:00:00 [place] zoster vaccine 2006-03-20 Completed [facility] live<sup>8</sup> 06:00:00 [place] zoster vaccine 2006-03-20 Completed [facility] live<sup>8</sup> 06:00:00 Jimmy zoster vaccine 2006-03-20 Completed [facility] live<sup>8</sup> 06:00:00 Jimmy zoster vaccine 2006-03-20 Completed [facility] live<sup>8</sup> 06:00:00 Jimmy zoster vaccine 2006-03-20 Completed [facility] live<sup>8</sup> 06:00:00 Jimmy zoster vaccine 2006-03-20 Completed [facility] live<sup>8</sup> 06:00:00 [place] zoster vaccine 2006-03-20 Completed [facility] live<sup>8</sup> 06:00:00 [place] zoster vaccine 2006-03-20 Completed [facility] live<sup>8</sup> 06:00:00 Jimmy zoster vaccine 2006-03-20 Completed [facility] live<sup>8</sup> 06:00:00 Jimmy Hx hepatitis B 2006-03-15 Completed [facility] vaccine<sup>5</sup> 15:23:57 Mary nn Hx hepatitis B 2006-03-15 Completed [facility] vaccine<sup>5</sup> 15:23:57 Mary nn hepatitis B vaccine 2006-03-15 Completed [facility] #2 given 15:23:57 [place] Hx hepatitis B 2006-03-15 Completed [facility] vaccine<sup>5</sup> [...] 2006-03-15 Completed [facility] vaccine<sup>5</sup> 15:23:57 Mary nn measles/mumps/rubell 2006-02-28 Completed [facility] a virus 15:23:57 Jimmy vaccine<sup>9</sup> measles/mumps/rubell 2006-02-28 Completed [facility] a virus 15:23:57 [place] vaccine<sup>9</sup> MMR (measles, mumps, 2006-02-28 Completed [facility] rubella) virus 15:23:57 [place] immunization #1 measles/mumps/rubell 2006-02-28 Completed [facility] a virus 15:23:57 [place] vaccine<sup>9</sup> measles/mumps/rubell 2006-02-28 Completed [facility] a virus 15:23:57 Jimmy vaccine<sup>9</sup> measles/mumps/rubell 2006-02-28 Completed [facility] a virus 15:23:57 Jimmy vaccine<sup>9</sup> measles/mumps/rubell 2006-02-28 Completed [facility] a virus 15:23:57 [place] vaccine<sup>9</sup> measles/mumps/rubell 2006-02-28 Completed [facility] a virus 15:23:57 Jimmy vaccine<sup>9</sup> measles/mumps/rubell 2006-02-28 Completed [facility] a virus 15:23:57 Jimmy vaccine<sup>9</sup> measles/mumps/rubell 2006-02-28 Completed [facility] a virus 15:23:57 [place] vaccine<sup>9</sup> measles/mumps/rubell 2006-02-28 Completed [facility] a virus 15:23:57 [place] vaccine<sup>9</sup> MMR (measles, mumps, 2006-02-28 Completed [facility] rubella) virus 15:23:57 Jimmy immunization #1 measles/mumps/rubell 2006-02-28 Completed [facility] a virus 15:23:57 Jimmy vaccine<sup>9</sup> measles/mumps/rubell 2006-02-28 Completed [facility] a virus 15:23:57 [place] vaccine<sup>9</sup> measles/mumps/rubell 2006-02-28 Completed [facility] a virus 15:23:57 Jimmy vaccine<sup>9</sup> measles/mumps/rubell 2006-02-28 Completed [facility] a virus 15:23:57 [place] vaccine<sup>9</sup> measles/mumps/rubell 2006-02-28 Completed [facility] a virus 15:23:57 Jimmy vaccine<sup>9</sup> measles/mumps/rubell 2006-02-28 Completed [facility] a virus 15:23:57 [place] vaccine<sup>9</sup> Hx hepatitis B 2006-02-25 Completed [facility] vaccine<sup>6</sup> [...] 2006-02-25 Completed [facility] #1 given 15:23:57 [place] Hx hepatitis B 2006-02-25 Completed [facility] vaccine<sup>6</sup> [...] Observation Time Observation Value Comments Source WEIGHT 2022-08-30 06:26:00 95.482 kg WEIGHT 2022-08-29 14:15:00 91.5 kg WEIGHT 2022-08-29 05:11:00 94.53 kg WEIGHT 2022-08-27 11:45:00 90.2 kg WEIGHT 2022-08-27 07:40:00 93.2 kg WEIGHT 2022-08-25 17:33:00 93.2 kg WEIGHT 2022-08-25 06:00:00 93.2 kg WEIGHT 2022-08-24 04:57:00 96 kg WEIGHT 2022-08-23 06:00:00 95.8 kg WEIGHT 2022-08-22 06:00:00 90.1 kg WEIGHT 2022-08-21 18:45:00 89.9 kg WEIGHT 2022-08-21 05:00:00 90.9 kg HEIGHT 2022-08-20 08:00:00 172.7 cm WEIGHT 2022-08-20 08:00:00 94.6 kg WEIGHT 2022-08-20 05:00:00 94.8 kg HEIGHT 2022-08-19 07:00:00 172.7 cm WEIGHT 2022-08-19 07:00:00 94.4 kg WEIGHT 2022-08-19 05:43:00 93.4 kg WEIGHT 2022-08-18 16:30:00 92.4 kg WEIGHT 2022-08-18 12:00:00 95.4 kg WEIGHT 2022-08-18 06:00:00 95.4 kg WEIGHT 2022-08-16 18:00:00 92.5 kg WEIGHT 2022-08-16 13:51:00 95.5 kg HEIGHT 2022-08-15 15:02:00 172.7 cm WEIGHT 2022-08-15 15:02:00 95.5 kg WEIGHT 2022-08-30 06:26:00 95.482 kg WEIGHT 2022-08-29 14:15:00 91.5 kg WEIGHT 2022-08-29 05:11:00 94.53 kg WEIGHT 2022-08-27 11:45:00 90.2 kg WEIGHT 2022-08-27 07:40:00 93.2 kg WEIGHT 2022-08-25 17:33:00 93.2 kg WEIGHT 2022-08-25 06:00:00 93.2 kg WEIGHT 2022-08-24 04:57:00 96 kg WEIGHT 2022-08-23 06:00:00 95.8 kg WEIGHT 2022-08-22 06:00:00 90.1 kg WEIGHT 2022-08-21 18:45:00 89.9 kg WEIGHT 2022-08-21 05:00:00 90.9 kg HEIGHT 2022-08-20 08:00:00 172.7 cm WEIGHT 2022-08-20 08:00:00 94.6 kg WEIGHT 2022-08-20 05:00:00 94.8 kg HEIGHT 2022-08-19 07:00:00 172.7 cm WEIGHT 2022-08-19 07:00:00 94.4 kg WEIGHT 2022-08-19 05:43:00 93.4 kg WEIGHT 2022-08-18 16:30:00 92.4 kg WEIGHT 2022-08-18 12:00:00 95.4 kg WEIGHT 2022-08-18 06:00:00 95.4 kg WEIGHT 2022-08-16 18:00:00 92.5 kg WEIGHT 2022-08-16 13:51:00 95.5 kg HEIGHT 2022-08-15 15:02:00 172.7 cm WEIGHT 2022-08-15 15:02:00 95.5 kg WEIGHT 2022-02-13 06:03:00 86.41 kg WEIGHT [...] 01:28:00 126 mm[Hg] Univer sity of pressure [facility] Diastolic blood 2019-11-12 01:28:00 63 mm[Hg] Unive rsity of pressure [facility] Heart rate 2019-11-12 01:28:00 84 /min [facility] Respiratory rate 2019-11-12 01:28:00 20 /min [facility] O[facility] saturation in 2019-11-12 01:28:00 100 /min [facility] Arterial blood by [facility] Pulse oximetry Branch Systolic blood 2019-11-12 01:00:00 [...] 99 /min [facility] of Arterial blood by [facility] Pulse oximetry Branch Body temperature 2019-11-11 22:21:00 36.61 Pat [facility] Body weight 2019-11-11 22:21:00 85 kg [facility] Systolic blood 2019-11-12 01:28:00 126 mm[Hg] [facility] Diastolic blood 2019-11-12 01:28:00 63 mm[Hg] [facility] Heart rate 2019-11-12 01:28:00 84 /min [facility] Respiratory rate 2019-11-12 01:28:00 20 /min [facility] Oxygen saturation in 2019-11-12 01:28:00 100 /min [facility] Arterial blood by [facility] Pulse oximetry Branch Systolic blood 2019-11-12 01:00:00 [...] [facility] Arterial blood by [facility] raman Pulse oximetry Branch Body temperature 2019-11-11 22:21:00 36.61 Pat [facility] Body weight 2019-11-11 22:21:00 85 kg [facility] [place] Heart rate 2022-02-13 12:00:00 64 /min [facility] Systolic blood 2022-02-13 11:30:00 141 mm[Hg] [facility] Diastolic blood 2022-02-13 11:30:00 72 mm[Hg] [facility] Body temperature 2022-02-13 11:30:00 36.89 Pat [facility] Respiratory rate 2022-02-13 11:30:00 18 /min [facility] Oxygen saturation in 2022-02-13 11:30:00 92 /min [facility] Arterial blood by Medical Ce nter Pulse oximetry Body weight 2022-02-13 06:03:00 86.41 kg [facility] BMI 2022-02-13 06:03:00 28.97 kg/m2 [facility] Body height 2022-02-11 07:52:00 172.7 cm [facility] Heart Rate 2021-12-23 14:30:35 [facility] Temperature Oral (F) 2021-12-23 14:30:28 96.8 F [facility] [place] Systolic (mm Hg) 2021-12-23 14:30:01 [facility] Jimmy Diastolic (mm Hg) 2021-12-23 14:30:01 Mem o[facility] Jimmy Temperature Oral (F) 2021-12-17 17:00:00 96.9 F [facility] [place] Height 2021-12-16 10:50:00 5 [ft_i] [facility] Weight 2021-12-16 10:50:00 [facility] [place] BMI Calculated 2021-12-16 10:50:00 [facility] Jimmy Systolic blood 2021-12-12 07:00:00 134 mm[Hg] [facility] Diastolic blood 2021-12-12 07:00:00 53 mm[Hg] [facility] Heart rate 2021-12-12 07:00:00 50 /min [facility] Body temperature 2021-12-12 07:00:00 36.67 Pat [facility] Respiratory rate 2021-12-12 07:00:00 18 /min [facility] Oxygen saturation in 2021-12-12 07:00:00 93 /min [facility] Arterial blood by Medical Ce nter Pulse oximetry Body weight 2021-12-11 21:00:00 91 kg [facility] BMI 2021-12-11 21:00:00 30.50 kg/m2 [facility] Body height 2021-12-09 17:00:00 172.7 cm [facility] Systolic blood 2021-06-15 17:41:09 176 mm[Hg] [facility] pressure Diastolic blood 2021-06-15 17:41:09 70 mm[Hg] [facility] pressure Heart rate 2021-06-15 17:41:09 70 /min [facility] Body temperature 2021-06-15 17:41:09 36.89 Pat [facility] Respiratory rate 2021-06-15 17:41:09 18 /min [facility] Oxygen saturation in 2021-06-15 17:41:09 97 /min [facility] Arterial blood by Pulse oximetry Body height 2021-06-12 21:25:00 172.7 cm [facility] Body weight 2021-06-12 21:25:00 86.183 kg [facility] BMI 2021-06-12 21:25:00 28.89 kg/m2 [facility] Body height 2020-04-27 20:44:00 172.7 cm [facility] Body weight 2020-04-27 20:44:00 84.369 kg [facility] BMI 2020-04-27 20:44:00 28.28 kg/m2 [facility] Systolic blood 2020-03-26 14:44:51 139 mm[Hg] Method [facility] Hospital pressure Diastolic blood 2020-03-26 14:44:51 66 mm[Hg] [facility] pressure Heart rate 2020-03-26 14:44:51 80 /min [facility] Body temperature 2020-03-26 14:44:51 36 Pat [facility] Respiratory rate 2020-03-26 14:44:51 19 /min [facility] Oxygen saturation in 2020-03-26 14:44:51 96 /min [facility] Arterial blood by Pulse oximetry Height 2014-02-18 15:55:42 [facility] Weight 2014-02-18 15:55:42 [facility] Temperature Oral (F) 2014-02-18 15:55:42 97.5 F [facility] Heart Rate 2014-02-18 15:55:42 [facility] Systolic (mm Hg) 2014-02-18 15:55:42 [facility] [place] Diastolic (mm Hg) 2014-02-18 15:55:42 Mem orial [place] Weight 2013-01-23 19:53:21 [facility] [place] Temperature Oral (F) 2013-01-23 19:53:21 97.6 F [facility] Heart Rate 2013-01-23 19:53:21 [facility] Height 2013-01-23 19:53:21 [facility] [place] Systolic (mm Hg) 2013-01-23 19:53:21 Evert rial [place] Diastolic (mm Hg) 2013-01-23 19:53:21 Mem orial [place] Procedures Procedure Date / Time Performing Source Performed Clinician BASIC METABOLIC PANEL 2022-02-13 05:39:00 Narinder [facility] CBC (HEMOGRAM ONLY) 2022-02-13 05:39:00 Narinder [facility] MAGNESIUM 2022-02-13 05:39:00 Narinder [facility] LACTIC ACID, VENOUS 2022-02-13 05:39:00 Narnider [facility] LACTIC ACID, VENOUS 2022-02-12 20:23:00 Narinder [facility] HEMODIALYSIS INPATIENT 2022-02-12 15:11:40 Seth Clay [facility] XR CHEST 1 VIEW PORTABLE 2022-02-12 12:44:00 Narinder [facility] / BEDSIDE Center LACTIC ACID, VENOUS 2022-02-12 12:19:00 Narinder [facility] HEPATITIS B SURFACE 2022-02-12 12:19:00 N[facility] INSERTION, CARDIAC 2022-02-12 09:47:00 Narinder [facility] PACEMAKER, DUAL LEAD Center BASIC METABOLIC PANEL 2022-02-12 04:40:00 Narinder [facility] CBC (HEMOGRAM ONLY) 2022-02-12 04:40:00 Narinder [facility] MAGNESIUM 2022-02-12 04:40:00 [facility] LACTIC ACID, VENOUS 2022-02-12 04:40[facility] LEG 2022-02-11 [facility] 2022-02-11 17:38[facility]ON, TIBC, % SAT. 2022-02-11 17:38:00 [facility] (WITHOUT FERRITIN) [facility] FERRITIN 2022-02-11 17:38:00 [facility] HEMOGLOBIN A1C 2022-02-11 17:38:00 [facility] XR CHEST 1 VIEW PORTABLE 2022-02-11 15:46:00 Rashad Hurtado [facility] / BEDSIDE Center LACTIC ACID, ARTERIAL 2022-02-11 15:39:00 [facility] BLOOD GAS, ARTERIAL 2022-02-11 15:37:00 [facility] CBC W/PLT COUNT & AUTO 2022-02-11 15:37:00 [facility] DIFFERENTIAL [facility] BASIC METABOLIC PANEL 2022-02-11 15:37:00 [facility] MAGNESIUM 2022-02-11 15:37:00 [facility] PHOSPHORUS 2022-02-11 15:37:00 [facility] HIGH SENSITIVITY 2022-02-11 15:37:00 [facility] TROPONIN I [facility] B-TYPE NATRIURETIC 2022-02-11 15:37:00 [facility] FACTOR (BNP) [facility] CBC W/PLT COUNT & AUTO 2022-02-11 15:37:00 [facility] DIFFERENTIAL [facility] XR CHEST 1 VIEW PORTABLE 2022-02-11 12:17:00 Rashad Hurtado [facility] / BEDSIDE Center HIGH SENSITIVITY 2022-02-11 07:25:00 Latasha Hernandez [facility] TROPONIN I Center BASIC METABOLIC PANEL 2022-02-11 07:25:00 [facility] MAGNESIUM 2022-02-11 07:25:00 [facility] CBC W/PLT COUNT & AUTO 2022-02-11 07:25:00 Siria [facility] DIFFERENTIAL Center CBC W/PLT COUNT & AUTO 2022-02-11 07:25:00 [facility] 2D ECHO W/ DOPPLER 2022-02-11 02:07:57 [facility] [place] XR CHEST 1 VIEW PORTABLE 2022-02-11 00:51[facility]00 [facility] BASIC METABOLIC PANEL 2022-02-10 23:52:00 Latasha Hernandez I [facility] HEPATIC FUNCTION PANEL 2022-02-10 23:52:00 Latasha Hernandez [facility] MAGNESIUM 2022-02-10 23:52:00 [facility] 2022-02-10 23:52:00 Latasha Hernandez [facility] TSH/FREE T4 IF INDICATED 2022-02-10 23:52:00 [facility]ITIV[facility] 2022-02-10 23:52:00 [facility] B-TYPE NATRIURETIC 2022-02-10 23:52:00 [facility] CBC W/PLT COUNT & AUTO 2022-02-10 23:52:00 Latasha Hernandez [facility] DIFFERENTIAL Center CBC W/PLT COUNT & AUTO 2022-02-10 23:52:[address] [facility] Center ECG 12-LEAD 2022-02-10 23:02:12 Unknown, [facility] ECG 12-LEAD 2022-02-10 23:02:12 Unknown, H[facility] ARRYTHMIA IMPLANT REPORT 2022-02-10 00:00:00 Provider, Default Lisa [facility] Scanning [facility] CARDIAC CATH REPORT - 2022-02-10 00:00:00 Provider, Default [facility] SCAN Scanning Center EKG-SCANNED 2022-02-10 00:00:00 Provider, Default [facility] [place] Esophagogastroduodenosco 2021-12-18 14:07:00 Herber Marquez py, flexible, transoral; diagnostic, including collection of specimen(s) by brushing or washing, when performed (separate procedure) CBC W/PLT COUNT & AUTO 2021-12-12 04:59:00 [facility] BASIC METABOLIC PANEL 2021-12-12 04:59:00 [facility] CBC W/PLT COUNT & AUTO 2021-12-12 04:59:00 [facility] HEMODIALYSIS INPATIENT 2021-12-11 21:00:00 Barak Pérez I [facility] ECG 12-LEAD 2021-12-11 15:07:30 Susan Pfeiffer [facility] ECG 12-LEAD 2021-12-11 15:07:30 Unknown, H[facility] CT ABDOMEN/PELVIS 2021-12-11 14:20:00 [facility] WITHOUT IV CONTRAST Center CBC W/PLT COUNT & AUTO 2021-12-11 05:12:00 [facility] BASIC METABOLIC PANEL 2021-12-11 05:12:00 [facility] HEPATITIS B SURFACE 2021-12-11 05:12:00 Barak Pérez [facility] Center CBC W/PLT COUNT & AUTO 2021-12-11 05:12:00 [facility]-REACT[facility] PROTEIN 2021-12-10 11:32:00 Esmer Figueroa [facility] S [facility] [place] [facility] PHOSPHORUS 2021-12-10 11:32:00 Barak Pérez [facility] SARS-COV2/RT-PCR ([facility] & 2021-12-10 10:07:00 Neeru Marley Aleks [facility] REF LABS) Center CBC W/PLT COUNT & AUTO 2021-12-10 04:26:00 Ame Neeru [facility] DIFFERENTIAL Center BASIC METABOLIC PANEL 2021-12-10 04:26:00 [facility] CBC W/PLT COUNT & AUTO 2021-12-10 04:26:00 [facility] DIFFERENTIAL Center HEMOGLOBIN AND 2021-12-09 18:47:00 [facility] HEMATOCRIT Center TYPE AND SCREEN, 2021-12-09 18:47:00 Ame Neeru [facility] AUTOMATED Center XR CHEST 2 VW 2021-09-15 16:09:00 [facility] ASSIGNMENT OF BENEFITS 2021-09-15 15:42:19 Doctor Unassigned, Un [facility] HEMOGLOBIN & HEMATOCRIT 2021-06-15 14:45:00 Maddy Guo [facility] HEMODIALYSIS 2021-06-15 12:31:53 Johann Enriquez ospisean Reyaver CBC WITH PLATELET AND 2021-06-15 09:14:00 Daniel Rocha [facility] DIFFERENTIAL BASIC METABOLIC PANEL 2021-06-15 09:14:00 Daniel Rocha [facility] ESTIMATED GFR 2021-06-15 09:14:00 Daniel Rocha ECG 12-LEAD 2021-06-14 18:49:23 Arsen Ureña Hector CBC WITH PLATELET AND 2021-06-13 23:02:00 Francesca Mac [facility] DIFFERENTIAL COVID-19 QUALITATIVE 2021-06-13 13:31:00 Sophia Rochaab [facility] RT-PCR HEPATITIS B SURFACE 2021-06-13 12:37:00 Vandana [facility] ANTIGEN CBC WITH PLATELET AND 2021-06-13 09:33:00 [facility] DIFFERENTIAL Hector BASIC METABOLIC PANEL 2021-06-13 09:33:00 [facility] Hector MAGNESIUM LEVEL 2021-06-13 09:33:[address] [facility] spital Hector PARTIAL THROMBOPLASTIN 2021-06-13 09:33:00 [facility] TIME (PTT) Hector TROPONIN T 2021-06-13 09:33:00 [facility] ESTIMATED GFR 2021-06-13 09:33:[address] [facility] spital Hector TOTAL IRON BINDING 2021-06-13 09:33:00 [facility] CAPACITY Hector FERRITIN LEVEL 2021-06-13 09:33:[address] [facility] spital Hector CT ABDOMEN PELVIS WO 2021-06-13 05:03:23 Svetlana Cano [facility] CONTRAST ECG ED PRELIMINARY 2021-06-13 02:34:56 [facility] INTERPRETATION Arturo R. HEMODIALYSIS 2021-06-13 02:16:04 Vandana [facility] CBC WITH PLATELET AND 2021-06-12 22:50:00 [facility] DIFFERENTIAL Arturo R. PROTHROMBIN TIME WITH 2021-06-12 22:50:00 [facility] INR Arturo R. TYPE AND SCREEN 2021-06-12 22:50:00 [facility] Arturo R. COMPREHENSIVE METABOLIC 2021-06-12 22:50:00 [facility] PANEL Arturo R. LIPASE LEVEL 2021-06-12 22:50:00 [facility] Arturo R. ESTIMATED GFR 2021-06-12 22:50:00 [facility] Arturo R. ECG 12-LEAD 2021-06-12 21:49:24 Carissa Farnsworth rhina Gupta [id number] 2020-05-24 00:00:00 GRANI [facility] [id number] 2020-05-20 00:00:00 GIBJE.01 [facility] [id number] 2020-05-20 00:00:00 GIBJE.01 [facility] [id number] 2020-05-20 00:00:00 GIBJE.01 [facility] [id number] 2020-05-20 00:00:00 SEEGE [facility] [id number] 2020-05-16 00:00:00 JUSTINO.03 [facility] [id number] 2020-05-14 00:00:00 JUSTINO.03 [facility] [id number] 2020-05-11 00:00:00 [facility] [id number] 2020-05-11 00:00:00 [facility] [id number] 2020-05-11 00:00:00 [facility] [id number] 2020-05-11 00:00:00 [facility] [id number] 2020-03-30 00:00:00 [facility] [id number] 2020-03-30 00:00:00 [facility] [id number] 2020-03-30 00:00:00 [facility] [id number] 2020-03-30 00:00:00 [facility] [id number] 2020-03-30 00:00:00 [facility] [id number] 2020-03-30 00:00:00 [facility] ress [id number] 2020-03-30 00:00:00 [facility] [id number] 2020-03-30 00:00:00 [facility] [id number] 2020-03-30 00:00:00 [facility] ress [id number] 2020-03-30 00:00:00 [facility] ypress [id number] 2020-03-30 00:00:00 [facility] ypress [id number] 2020-03-30 00:00:00 [facility] ypress [id number] 2020-03-30 00:00:00 [facility] ypress [id number] 2020-03-30 00:00:00 [facility] ypress [id number] 2020-03-30 00:00:00 [facility] ypress [id number] 2020-03-30 00:00:00 [facility] ypress [id number] 2020-03-30 00:00:00 [facility] ypress [id number] 2020-03-30 00:00:00 [facility] ypress [id number] 2020-03-30 00:00:00 [facility] ypress [id number] 2020-03-30 00:00:00 [facility] ypress [id number] 2020-03-30 00:00:00 [facility] ypress [id number] 2020-03-30 00:00:00 [facility] ypress HC COMPLETE BLD COUNT 2020-03-25 10:45:00 [facility] W/AUTO DIFF Obi BASIC METABOLIC PANEL 2020-03-25 10:00:00 [facility] Obi ESTIMATED GFR 2020-03-25 10:00:00 Clint King spital Obi HEMODIALYSIS 2020-03-24 22:39:54 Maldonado Casper spital Deepak HC COMPLETE BLD COUNT 2020-03-24 11:00:00 [facility]/AUTO DIFF Obi BASIC METABOLIC PANEL 2020-03-24 10:00:00 [facility] Obi ESTIMATED GFR 2020-03-24 10:00:00 Clint King spital Obi US CAROTID DUPLEX 2020-03-23 18:31:05 Bear Mariee [facility] BILATERAL BASIC METABOLIC PANEL 2020-03-23 09:20:00 [facility] Obi HC COMPLETE BLD COUNT 2020-03-23 09:20:00 [facility] W/AUTO DIFF Obi ESTIMATED GFR 2020-03-23 09:20:00 Clint King spital Obi POC GLUCOSE 2020-03-22 22:27:00 Clint King spital Obi HEMODIALYSIS 2020-03-22 22:13:20 Romy Woodson spital Tabitha FUNGUS SMEAR 2020-03-22 20:52:00 Obi Kerr spital ANAEROBIC CULTURE 2020-03-22 20:52:[address] [facility] FUNGUS CULTURE 2020-03-22 20:52:00 Obi Kerr spital AFB STAIN 2020-03-22 20:52:00 Obi Kerr spital AEROBIC CULTURE 2020-03-22 20:52:00 Obi Kerr spital ANAEROBIC CULTURE 2020-03-22 20:50:00 Usha [facility] FUNGUS CULTURE 2020-03-22 20:50:00 Obi Kerr spital AFB STAIN 2020-03-22 20:50:00 Obi Kerr spital AEROBIC CULTURE 2020-03-22 20:50:00 Obi Kerr spital GRAM STAIN 2020-03-22 20:50:00 Obi Kerr spital SURGICAL PATHOLOGY 2020-03-22 20:30:00 [facility] CULTURE 2020-03-22 19:52:00 Obi Kerr spital AFB CULTURE 2020-03-22 19:50:00 Obi Kerr spital OR [place] < 1 HOUR 2020-03-22 19:30:00 Obi Kerr spital [place] AN ELECTIVE 2020-03-22 19:25:28 Madelyn Simpson H ospital ENDOTRACHEAL AIRWAY AMPUTATION, ABOVE KNEE 2020-03-22 18:47:00 Obi Kerr [facility] POC GLUCOSE 2020-03-22 15:07:00 Clint King spital Obi HC COMPLETE BLD COUNT 2020-03-22 12:45:00 [facility] DIFF TYPE AND SCREEN 2020-03-22 12:45:00 Carlos Nelson spital VANCOMYCIN LEVEL, RANDOM 2020-03-22 10:00:00 [facility] BASIC METABOLIC PANEL 2020-03-22 10:00:00 Christine [facility] Obi ESTIMATED GFR 2020-03-22 10:00:00 Clint King spital Obi LIPID PANEL 2020-03-22 10:00:00 Bear Mariee spital HEPATITIS B SURFACE 2020-03-21 14:22:00 Kumar Ayala [facility] ANTIGEN PROTHROMBIN TIME WITH 2020-03-21 12:15:00 [facility] INR PARTIAL THROMBOPLASTIN 2020-03-21 12:15:00 [facility] TIME (PTT) BASIC METABOLIC PANEL 2020-03-21 12:15:00 [facility] CBC WITH PLATELET AND 2020-03-21 12:15:00 [facility] DIFFERENTIAL VANCOMYCIN LEVEL, RANDOM 2020-03-21 12:15:00 [facility] ESTIMATED GFR 2020-03-21 12:15:00 [facility] HEMODIALYSIS 2020-03-21 06:05:17 Kumar Ayala H ospital VANCOMYCIN LEVEL, RANDOM 2020-03-20 20:54:00 [facility] BASIC METABOLIC PANEL 2020-03-20 11:30:00 Christine [facility] Obi ESTIMATED GFR 2020-03-20 11:30:00 Clint King spital Obi TTE COMPLETE, W 2020-03-19 18:00:00 Svetlana Martinez spital CONTRAST, W DOPPLER Ryan ([id number]) HC COMPLETE BLD COUNT 2020-03-19 10:14:00 [facility] DIFF MRI KNEE WO CONTRAST 2020-03-19 09:38:00 [facility] RIGHT Ryan MRI THIGH WO CONTRAST 2020-03-19 08:52:00 [facility] RIGHT Ryan MRI LOWER EXTREMITY WO 2020-03-19 08:07:00 [facility] CONTRAST RIGHT Ryan BASIC METABOLIC PANEL 2020-03-19 07:01:00 [facility] ESTIM[facility] GFR 2020-03-19 07:01:00 [facility] LACTIC ACID LEVEL 2020-03-19 07:01:00 [facility] LACTIC ACID LEVEL, 2020-03-19 01:46:00 [facility] SEPSIS - NOW AND REPEAT [place] 2X EVERY 3 HOURS BLOOD CULTURE, AEROBIC & 2020-03-18 23:22:00 [facility] ANAEROBIC [place] COVID-19 QUALITATIVE 2020-03-18 23:22:00 [facility] RT-PCR [place] BLOOD CULTURE, AEROBIC & 2020-03-18 23:16:00 [facility] ANAEROBIC [place] HC COMPLETE BLD COUNT 2020-03-18 23:16:00 [facility] W/AUTO DIFF [place] PROTHROMBIN TIME WITH 2020-03-18 23:16:00 [facility] INR [place] PARTIAL THROMBOPLASTIN 2020-03-18 23:16:00 [facility] TIME (PTT) [place] TYPE AND SCREEN 2020-03-18 23:16:00 [facility] spital [place] COMPREHENSIVE METABOLIC 2020-03-18 23:16:00 [facility] PANEL [place] LACTIC ACID LEVEL, 2020-03-18 23:16:00 [facility] SEPSIS - NOW AND REPEAT [place] 2X EVERY 3 HOURS C-REACTIVE PROTEIN 2020-03-18 23:16:00 [facility] SEDIMENTATION RATE 2020-03-18 23:16:00 [facility] [place] ESTIMATED GFR 2020-03-18 23:16:00 [facility] spital [place] URINE CULTURE 2020-03-18 23:10:00 [facility] [place] URINALYSIS SCREEN AND 2020-03-18 23:10:00 [facility] MICROSCOPY, WITH REFLEX [facility] TO CULTURE XR KNEE 1 OR 2 VW RIGHT 2020-03-18 23:03:39 [facility] XR TIBIA FIBULA 2 VW 2020-03-18 23:03:04 [facility] RIGHT [place] URINALYSIS 2019-11-11 23:48:00 Wanda [facility] XR CHEST 1 VW 2019-11-11 23:02:37 [facility] MAGNESIUM 2019-11-11 22:43:00 [facility] COMP. 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<sup>2</sup> [facility]<sup[facility]</sup> Bilateral replacement of Memoria [facility] [place] knee joints<sup>1</sup> Manual repair of hernia [facility] Jimmy Procedure on [facility] kidney<sup>4</sup> Plan of Care Planned Activity Planned Date Details Comments Source Future Scheduled 2023-02-[address] [facility] Test 00:[facility] (12+) [code = Tobacco Cessation Counseling and Screening (12+)] Future Scheduled 2022-08-27 65[facility] 21:12:39 VACCINE (1 - PCV) [code = 65+ PNEUMOCOCCAL VACCINE (1 - PCV)] Future Scheduled 2022-08-27 SHINGLES VACCINES (1 [facility] Test 21:12:39 of 2) [code = SHINGLES VACCINES (1 of 2)] Future Scheduled 2022-08-27 COVID-19 VACCINE (3 - [facility] Test 21:12:39 Pfizer series) [code = COVID-19 VACCINE (3 - Pfizer series)] Future Scheduled 2022-08-27 INFLUENZA VACCINE [facility] Hospital Test 21:12:39 [code = INFLUENZA VACCINE] Future Scheduled 2022-08-10 65+ [facility]OCOCCAL [facility] Test 07:41:32 VACCINE (1 - PCV) [code = 65+ PNEUMOCOCCAL VACCINE (1 - PCV)] Future Scheduled 2022-08-10 SHINGLES VACCINES (1 [facility] Hospital Test 07:41:32 of 2) [code = SHINGLES VACCINES (1 of 2)] Future Scheduled 2022-08-10 COVID-19 VACCINE (3 - [facility] Test 07:41:32 Pfizer series) [code = COVID-19 VACCINE (3 - Pfizer series)] Future Scheduled 2022-08-10 INFLUENZA VACCINE Method is Hospital Test 07:41:32 [code = INFLUENZA VACCINE] Future Scheduled 2022-02-11 FALLS RISK SCREENING [facility] Test 00:00:00 [code = FALLS RISK Medical C enter SCREENING] Future Scheduled 2022-01-22 65+ PNEUMOCOCCAL [facility] Test 16:36:00 VACCINE (1 - PCV) [code = 65+ PNEUMOCOCCAL VACCINE (1 - PCV)] Future Scheduled 2022-01-22 SHINGLES VACCINES (1 Met [facility] Hospital Test 16:36:00 of 2) [code = SHINGLES VACCINES (1 of 2)] Future Scheduled 2022-01-22 COLONOSCOPY SCREENING [facility] Test 16:36:00 [code = COLONOSCOPY SCREENING] Future Scheduled 2022-01-22 COVID-19 VACCINE (3 - [facility] Test 16:36:00 Booster for Pfizer series) [code = COVID-19 VACCINE (3 - Booster for Pfizer series)] Future Scheduled 2022-01-22 INFLUENZA VACCINE [facility] Test 16:36:00 [code = INFLUENZA VACCINE] Future Scheduled 2022-01-22 65+ PNEUMOCOCCAL Methodi [facility] Test 16:36:00 VACCINE (1 - PCV) [code = 65+ PNEUMOCOCCAL VACCINE (1 - PCV)] Future Scheduled 2022-01-22 SHINGLES VACCINES (1 Met [facility] Test 16:36:00 of 2) [code = SHINGLES VACCINES (1 of 2)] Future Scheduled 2022-01-22 COLONOSCOPY SCREENING [facility] Test 16:36:00 [code = COLONOSCOPY SCREENING] Future Scheduled 2022-01-22 COVID-19 VACCINE (3 - Me [facility] Test 16:36:00 Booster for Pfizer series) [code = COVID-19 VACCINE (3 - Booster for Pfizer series)] Future Scheduled 2022-01-22 INFLUENZA VACCINE [facility] Test 16:36:00 [code = INFLUENZA VACCINE] Future Scheduled 2022-01-22 65+ PNEUMOCOCCAL Methodi [facility] Test 16:36:00 VACCINE (1 - PCV) [code = 65+ PNEUMOCOCCAL VACCINE (1 - PCV)] Future Scheduled 2022-01-22 SHINGLES VACCINES (1 Met [facility] Test 16:36:00 of 2) [code = SHINGLES VACCINES (1 of 2)] Future Scheduled 2022-01-22 COLONOSCOPY SCREENING [facility] Test 16:36:00 [code = COLONOSCOPY SCREENING] Future Scheduled 2022-01-22 COVID-19 VACCINE (3 - [facility] Test 16:36:00 Booster for Pfizer series) [code = COVID-19 VACCINE (3 - Booster for Pfizer series)] Future Scheduled 2022-01-22 INFLUENZA VACCINE [facility] Test 16:36:00 [code = INFLUENZA VACCINE] Future Scheduled 2021-12-15 HEPATITIS B VACCINES Met [facility] Test 11:14:19 (1 of 3 - 3-dose series) [code = HEPATITIS B VACCINES (1 of 3 - 3-dose series)] Future Scheduled 2021-12-15 65+ PNEUMOCOCCAL Methodi [facility] Test 11:14:19 VACCINE (1 - PCV) [code = 65+ PNEUMOCOCCAL VACCINE (1 - PCV)] Future Scheduled 2021-12-15 SHINGLES VACCINES (1 Met [facility] Test 11:14:19 of 2) [code = SHINGLES VACCINES (1 of 2)] Future Scheduled 2021-12-15 COLONOSCOPY SCREENING [facility] Test 11:14:19 [code = COLONOSCOPY SCREENING] Future Scheduled 2021-12-15 COVID-19 VACCINE (3 - Me [facility] Test 11:14:19 Booster for Pfizer series) [code = COVID-19 VACCINE (3 - Booster for Pfizer series)] Future Scheduled 2021-12-15 INFLUENZA VACCINE [facility] Test 11:14:19 [code = INFLUENZA VACCINE] Future Scheduled 2021-12-15 HEPATITIS B VACCINES Met [facility] Test 11:14:19 (1 of 3 - 3-dose series) [code = HEPATITIS B VACCINES (1 of 3 - 3-dose series)] Future Scheduled 2021-12-15 65+ [facility]OCCAL [facility] 11:14:19 VACCINE (1 - PCV) [code = 65+ PNEUMOCOCCAL VACCINE (1 - PCV)] Future Scheduled 2021-12-15 SHINGLES VACCINES (1 Met [facility] Test 11:14:19 of 2) [code = SHINGLES VACCINES (1 of 2)] Future Scheduled 2021-12-15 COLONOSCOPY SCREENING [facility] Test 11:14:19 [code = COLONOSCOPY SCREENING] Future Scheduled 2021-12-15 COVID-19 VACCINE (3 - Me [facility] Test 11:14:19 Booster for Pfizer series) [code = COVID-19 VACCINE (3 - Booster for Pfizer series)] Future Scheduled 2021-12-15 INFLUENZA VACCINE [facility] Test 11:14:19 [code = INFLUENZA VACCINE] Future Scheduled 2021-12-15 HEPATITIS B VACCINES Met [facility] Test 11:14:19 (1 of 3 - 3-dose series) [code = HEPATITIS B VACCINES (1 of 3 - 3-dose series)] Future Scheduled 2021-12-15 65+ [facility]OCOCCAL [facility] Test 11:14:19 VACCINE (1 - PCV) [code = 65+ PNEUMOCOCCAL VACCINE (1 - PCV)] Future Scheduled 2021-12-15 SHINGLES VACCINES (1 Met [facility] Test 11:14:19 of 2) [code = SHINGLES VACCINES (1 of 2)] Future Scheduled 2021-12-15 COLONOSCOPY SCREENING [facility] Test 11:14:19 [code = COLONOSCOPY SCREENING] Future Scheduled 2021-12-15 COVID-19 VACCINE (3 - [facility] Test 11:14:19 Booster for Pfizer series) [code = COVID-19 VACCINE (3 - Booster for Pfizer series)] Future Scheduled 2021-12-15 INFLUENZA VACCINE Method is Hospital Test 11:14:19 [code = INFLUENZA VACCINE] Future Scheduled 2021-10-27 HEPATITIS B VACCINES Met [facility] Test 04:11:20 (1 of 3 - 3-dose series) [code = HEPATITIS B VACCINES (1 of 3 - 3-dose series)] Future Scheduled 2021-10-27 65+ P[facility]UMOCOCCAL [facility] Test 04:11:20 VACCINE (1 - PCV) [code = 65+ PNEUMOCOCCAL VACCINE (1 - PCV)] Future Scheduled 2021-10-27 SHINGLES VACCINES (1 Met [facility] Test 04:11:20 of 2) [code = SHINGLES VACCINES (1 of 2)] Future Scheduled 2021-10-27 COLONOSCOPY SCREENING [facility] Test 04:11:20 [code = COLONOSCOPY SCREENING] Future Scheduled 2021-10-27 COVID-19 VACCINE (3 - [facility] Test 04:11:20 Booster for Pfizer series) [code = COVID-19 VACCINE (3 - Booster for Pfizer series)] Future Scheduled 2021-10-27 INFLUENZA VACCINE Method is Hospital Test 04:11:20 [code = INFLUENZA VACCINE] [...] Future Scheduled DIABETIC FOOT EXAM [facility] [code = DIABETIC FOOT EXAM] [...] Date/Time Type Type Clinicians Facility Department ID 2022-08-26 [facility] [id number] [facility] 13:15:44 KENDRICK 2022-08-25 Inpatient UR CLINT [facility] [id number] [facility] 11:25:02 ELEONORA 2022-08-23 Inpatient UR GILLIAN [facility] [id number] [facility] UR JASEN WALKER [facility] [id number] [facility] 23:56:36 2022-08-22 Inpatient UR GILLIAN [facility] [id number] [facility]:41[facility] Inpatient UR RASHAD HURTADO [facility] SLEH [id number] [facility] 14:18:51 2022-08-20 Inpatient UR RASHAD HURTADO [facility] SLEH [id number] SLEH 14:18:35 2022-08-20 Inpatient UR MERCHANT SLEH SLEH [id number] [facility] 00:00:00 [facility] 2022-08-16 Inpatient UR [place] SLE [id number] [facility] 02:34:27 [facility] 2022-08-15 Inpatient UR [place] SLEH [id number] [facility]H 03:41:20 [facility] 2021-03-09 Outpatient 3 [id number] ENCPL BIT [facility] 11:54:24 [facility] [place] 2021-03-09 Outpatient 3 [id number] ENCPL REF [id number] [facility] 11:53:41 0406 [facility] [place] 2021-03-09 Outpatient 3 [id number] ENCPL REF [id number] [facility] 11:50:56 0329 [facility] [place] 2021-03-09 Outpatient 3 MICHELLE DIAZ AML [id number] [facility] 11:34:54 IGNAZIO [id number] [facility] [place] 2021-03-09 Outpatient 3 [id number] ENCPL REF [id number] [facility] 11:33:20 0212 [facility] [place] 2021-03-09 Outpatient 3 [id number] ENCPL REF [id number] [facility] 11:32:52 0211 [facility] [place] 2021-03-09 Outpatient 3 [id number] ENCPL REF [id number] [facility] 11:32:32 0210 [facility] [place] 2020 Outpatient Provider, HCAPM HCAPM [id number] [facility] 10:29:00 Undefined 34 [facility] 2020-06-07 Inpatient UR KENDRA Curtis HCACL [id number] [facility] 18:10:16 Sekou 19 [facility] 2020-05-16 Inpatient HCACL HCACL [id number] [facility] 06:04:26 61 [facility] 2020-03-26 Inpatient 3 JENNIFER VillafuertePL AML [id number] [facility] 12:00:00 Chaya 0213 [facility] Re[facility] 2022-08-14 2022-08-30 Inpatient UR RED [facility] [id number] [facility] 23:49:00 14:50:00 [facility] 2022-08-22 2022-08-22 Inpatient UR GILLIAN SLE SLE [id number] [facility]H 13:47:09 00:00:00 SHANTI 2022-08-18 2022-08-18 Inpatient UR AME SLE SLE [id number] [facility]H 11:33:39 00:00:00 [facility] 2022-02-10 2022-02-13 Hospital ER José Luis Zaman [facility] [id number] 22:48:00 13:01:00 Encounter Rachele Zaman Aleks Isbell [facility] 2022-02-10 2022-02-13 Inpatient ER [facility]LEKS [facility] [id number] SLE 22:48:00 13:01:00 2022-02-12 2022-02-12 Surgery Narinder, [facility] [id number] 09:50:00 12:54:00 [facility] 2022-02-11 2022-02-11 Travel [facility] [id number] [facility] 00:[facility] 00:00:00 [facility] 2022-02-10 2022-02-[address] [facility] [id number] 00:00:00 00:00:00 Only [facility] 2021-12-16 2021-12-23 Inpatient [facility] [id number] Memoria 10:37:00 19:27:00 r Jimmy leung [facility] 2021-12-16 2021-12-23 Inpatient [facility] [id number] Memoria 10:37:00 19:27:00 r Jimmy Webb l [facility] 2021-12-16 2021-12-23 [facility] [id number] [facility] 05:37:00 13:27:00 VESTA 2021-12-16 2021-12-23 Outpatient Soluram, [facility] [id number] 05:37:00 13:27:00 Vesta Roberto Carlos Jon Arreagady 2021-12-18 2021-12-18 Outpatient [facility] [id number] [place] 13:00:00 13:00:00 Health 2021-12-09 2021-12-[address] [facility] [id number] 16:00:00 10:59:00 Encounter [facility] 2021-12-09 2021-12-12 Inpatient ER [facility] [id number] SLE 16:00:00 10:59:00 [facility] Med 2021-12-11 2021-12-[address] [facility] [id number] 00:00:00 00:00:00 Only [facility] 2021-12-09 2021-12-09 Travel [facility] [id number] [facility] 00:[facility]00 00:00:00 [facility] 2021-12-09 2021-12-[address] [facility] [id number] 00:00:00 00:00:00 [facility] 2021-09-15 2021-09-15 Outpatient R RADIOLOGY [facility] [id number] [facility] 10:45:54 23:59:00 ity of [facility] 2021-09-15 2021-09-15 Hospital Radiology [facility] [id number] [facility] 10:45:00 23:59:00 Encounter ANGLEDANIEL [id number] [place]y [id number] [id number] [facility] [address] 2021-09-15 2021-09-15 Orders Doctor PENELOPE [id number] Univers 00:00:00 00:00:00 Only Unassigned, ROSE MARY 350.1.13.10 ity of [place] [facility] 4.2.7.2.686 [place] [id number] [facility] [address] 2021-08-09 2021-08-09 Telemedici Brant, 1.2.840.1 [id number] Methodi 13:00:00 13:08:06 [address] Maddy 21206.1.[address] 3.430.2.7 Hospit a .3.963105 l .8 2021-06-12 2021-06-15 [facility] Arturo Farnsworth 1.2.84 0.1 [id number] Methodi 16:33:00 15:42:00 Encounter Svetlana Cano 65171.1.[address] Daniel Rocha 3.430.2.7 Ho spita .3.478907 l .8 2021-03-29 2021-03-29 Telephone Jaime, 1.2.840.3 [id number] Methodi 00:00:00 00:00:[address] 3.430.2.7 Hospit a .3.970720 l .8 2020-12-28 2020-12-29 Between nullFlavo [facility] [id number] Memoria 15:37:08 15:37:08 Visit r Primary 02 l Care [facility] 2020-12-28 2020-12-29 Between nullFlavo [facility] [id number] Memoria 15:37:08 15:37:08 Visit r Primary 02 l Care [facility] 2020-12-28 2020-12-29 Outpatient [facility] [id number] 09:37:08 09:37:08 02 2020-12-08 2020-12-09 Between nullFlavo [facility] [id number] Memoria 16:48:14 16:48:14 Visit r Primary 01 [facility] 2020-12-08 2020-12-09 Between nullFlavo [facility] [id number] Memoria 16:48:14 16:48:14 Visit r Primary 01 [facility] 2020-12-08 2020-12-09 Outpatient [facility] [id number] 11:48:14 11:48:14 2020-12-07 2020-12-07 Outpatient [facility] [id number] [place] 00:00:00 00:00:00 ZUNIRA [address] 2020-11-11 2020-11-13 Phone nullFlavo [facility] [id number] Memoria 15:40:54 04:59:59 Message r Primary 00 [facility] 2020-11-11 2020-11-13 Phone nullFlavo [facility] [id number] Memoria 15:40:54 04:59:59 Message r Primary 00 [facility] 2020-11-11 2020-11-12 Outpatient [facility] [id number] 10:40:54 23:59:59 2020-10-01 2020-10-06 Inpatient [facility] 012 [id number] [address] [place] 00:00:00 00:00:00 SANDRA [address] 2020-05-13 2020-05-13 Outpatient TORI, HCAPM HCAPM [id number] [facility] 01:23:22 01:23:22 CHAYA 34 [facility] 2020-04-27 2020-04-27 Telemedici Obi Kerr 1.2.840.1 [id number] Methodi 15:36:30 16:10:[address]1.[address] 3.430.2.7 Hospit a .3.752900 l .8 2020-04-27 2020-04-27 Travel 1.2.840.1 1.2.210.248 4764 [id number] Methodi 00:00:00 00:00:[address] 3.430.2.7 0.2.7.3.698 Ho spita .3.429546 084.8 l .8 2020-04-26 2020-04-26 Travel 1.2.840.1 1.2.039.772 3761 [id number] Methodi 00:00:00 00:00:[address] 3.430.2.7 0.2.7.3.698 Ho spita .3.962605 084.8 l .8 2020-04-13 2020-04-18 [facility] [id number] [id number] Methodi 11:45:02 00:23:05 Visit Archie 19490.1.[address] 3.430.2.7 Hospit a .3.685664 l .8 2020-04-13 2020-04-13 Travel 1.2.840.1 1.2.004.740 7153 [id number] Methodi 00:00:00 00:00:[address] 3.430.2.7 0.2.7.3.698 Ho spita .3.741473 084.8 l .8 2020-04-05 2020-04-05 Abstract Sugar, 1.2.840.1 [id number] Methodi 00:00:00 00:00:[address] 3.430.2.7 Hospit a .3.144205 l .8 2020-04-04 2020-04-04 [facility] 1.2.840.1 [id number] 094 [id number] Methodi 13:34:38 14:35:21 Visit Archie 60807.1.[address] 3.430.2.7 Hospit a .3.967176 l .8 2020-04-04 2020-04-04 Travel 1.2.840.1 1.2.553.690 3529 [id number] Methodi 00:00:00 00:00:[address] 3.430.2.7 0.2.7.3.698 Ho spita .3.784994 084.8 l .8 2020-04-01 2020-04-01 Orders Sugar, 1.2.840.1 [id number] [id number] Methodi 00:00:00 00:00:00 Only Emilee 96688.1.[address] 3.430.2.7 Hospit a .3.212371 l .8 2020-04-01 2020-04-01 Travel 1.2.840.1 1.2.309.873 3109 [id number] Methodi 00:00:00 00:00:[address] 3.430.2.7 0.2.7.3.698 Ho spita .3.572677 084.8 l .8 2020-03-18 2020-03-26 [facility] 1.2.840 .1 [id number] Methodi 15:51:00 11:35:00 Encounter Clint King 88845.1.[address] [place], ar 3.430.2.7 Hos imelda .3.640848 l .8 2020-03-22 2020-03-22 Anesthesia Liu Mccloud 1.2.840.1 [id number] Methodi 12:47:00 16:31:00 Event Clint Graham 79859.1.[address] 3.430.2.7 Hospit a .3.550756 l .8 2020-03-22 2020-03-22 Surgery UshaObi 1.2.840.1 [id number] [id number] Methodi 12:53:00 14:38:[address] 3.430.2.7 Hospit a .3.548438 l .8 2019-11-11 2019-11-11 Emergency Wanda Pickens [facility] 1.2.840.114 78 [id number] 17:16:00 22:21:00 Lisa Pineda 350.1.13.10 [place] 4.2.7.2.686 [place] [id number] 084 2019-11-11 2019-11-11 Emergency Wanda Pickens [facility] 1.2.840.114 78 [id number] Univers 17:16:00 22:21:00 Lisa Pineda 350.1.13.10 i ty of [place] 4.2.7.2.686 [facility] [id number] [place] [address] [address] 2019-11-11 2019-11-11 Emergency X Wanda PICKENS [facility] ERT [id number] Univers 17:16:00 17:16:00 ity of [facility] 2019-11-03 2019-11-03 Telephone Melany, 1.2.840.1 [id number] [id number] Methodi 09:01:34 09:25:16 Consult Liss Baxter 23535.1.[address] 3.430.2.7 Hospit a .3.747971 l .8 2014-02-18 2014-02-18 Office [facility] [id number] Memoria 00:00:00 00:00:00 Visit cindy Marquez [id number] [facility] 2014-02-18 2014-02-18 Lab Report [facility] 1736 [id number] Memoria 00:00:00 00:00:00 cindy Marquez [id number] [facility] 2013-01-23 2013-01-23 Lab Report [facility] 1702 [id number] Memoria 00:00:00 00:00:00 cindy Marquez 212489 [facility] Results Test Description Test Time Test Comments Results Result Comments Source BASIC METABOLIC PANEL 2022-08-30 06:15:50 Test Item Value Reference Range Interpretation Comme nts SODIUM (BEAKER) (test 136 meq/L 136-145 code = 381) POTASSIUM (BEAKER) 4.1 meq/L 3.5-5.1 (test code = 379) CHLORIDE (BEAKER) (test 101 meq/L 98-107 code = 382) CO2 (BEAKER) (test code 26 meq/L 22-29 = 355) BLOOD UREA NITROGEN 34 mg/dL 7-21 H (BEAKER) (test code = 354) CREATININE (BEAKER) 3.78 mg/dL 0.57-1.25 H (test code = 358) GLUCOSE RANDOM (BEAKER) 85 mg/dL 70-105 (test code = 652) CALCIUM (BEAKER) (test 8.5 mg/dL 8.4-10.2 code = 697) EGFR (BEAKER) (test 16 mL/min/1.73 sq In terpretation of eGFR values code = 1092) m Stage Descripti on Result G1 Normal or high >=90 G2 Mildly decreased 60-8 9 G3a Mildly to moderately 45-5 9 G3b [...] s not applicable for dialysis zia dang [employer] Specialist ID - MMOperator ID - [id number] 05:13:41 Test Item Value Reference Range Interpretation Comments MAGNESIUM (BEAKER) (test code = 2.1 mg/dL 1.6-2.6 627) [employer] Specialist ID - MMCBC W/PLT COUNT & AUTO [id number] 05:06:29 Test Item Value Reference Range Interpretation Comments WHITE BLOOD CELL COUNT (BEAKER) 12.6 K/ L 3.5-10.5 H (test code = 775) RED BLOOD CELL COUNT (BEAKER) 2.76 M/ L 4.63-6.08 L (test code = 761) HEMOGLOBIN (BEAKER) (test code = 8.3 GM/DL 13.7-17.5 L 410) HEMATOCRIT (BEAKER) (test code = 25.9 % 40.1-51.0 L 411) MEAN CORPUSCULAR VOLUME (BEAKER) 94 fL 79-92 H (test code = 753) MEAN CORPUSCULAR HEMOGLOBIN 30.1 pg 25.7-32.2 (BEAKER) (test code = 751) MEAN CORPUSCULAR HEMOGLOBIN CONC 32.0 GM/DL 32.3-36.5 L (BEAKER) (test code = 752) RED CELL DISTRIBUTION WIDTH 14.5 % 11.6-14.4 H (BEAKER) (test code = 412) PLATELET COUNT (BEAKER) (test 298 K/CU MM 150-450 code = 756) MEAN PLATELET VOLUME (BEAKER) 8.9 fL 9.4-12.4 L (test code = 754) NUCLEATED RED BLOOD CELLS 0 /100 WBC 0-0 (BEAKER) (test code = 413) NEUTROPHILS RELATIVE PERCENT 78 % (BEAKER) (test code = 429) LYMPHOCYTES RELATIVE PERCENT 5 % (BEAKER) (test code = 430) MONOCYTES RELATIVE PERCENT 12 % (BEAKER) (test code = 431) EOSINOPHILS RELATIVE PERCENT 4 % (BEAKER) (test code = 432) BASOPHILS RELATIVE PERCENT 0 % (BEAKER) (test code = 437) NEUTROPHILS ABSOLUTE COUNT 9.85 K/ L 1.78-5.38 H (BEAKER) (test code = 670) LYMPHOCYTES ABSOLUTE COUNT 0.66 K/ L 1.32-3.57 L (BEAKER) (test code = 414) MONOCYTES ABSOLUTE COUNT (BEAKER) 1.50 K/ L 0.30-0.82 H (test code = 415) EOSINOPHILS ABSOLUTE COUNT 0.47 K/ L 0.04-0.54 (BEAKER) (test code = 416) BASOPHILS ABSOLUTE COUNT (BEAKER) 0.04 K/ L 0.01-0.08 (test code = 417) IMMATURE GRANULOCYTES-RELATIVE 0.90 % 0.00-1.00 PERCENT (BEAKER) (test code = 2801) BASIC METABOLIC [id number] 05:09:05 Test Item Value Reference Range Interpretation Comments SODIUM (BEAKER) 134 meq/L 136-145 L (test code = 381) POTASSIUM 3.9 meq/L 3.5-5.1 (BEAKER) (test code = 379) CHLORIDE (BEAKER) 100 meq/L 98-107 (test code = 382) CO2 (BEAKER) 23 meq/L 22-29 (test code = 355) BLOOD UREA 39 mg/dL 7-21 H NITROGEN (BEAKER) (test code = 354) CREATININE 4.47 mg/dL 0.57-1.25 H (BEAKER) (test code = 358) GLUCOSE RANDOM 118 mg/dL 70-105 H (BEAKER) (test code = [...] not appl icable for dialysis patien ts [employer] Specialist ID - [id number] 04:21:55 Test Item Value Reference Range Interpretation Comments MAGNESIUM (BEAKER) (test code = 2.1 mg/dL 1.6-2.6 627) [employer] Specialist ID - EOOCBC W/PLT COUNT & AUTO [id number] 04:06:26 Test Item Value Reference Range Interpretation Comments WHITE BLOOD CELL COUNT (BEAKER) 12.6 K/ L 3.5-10.5 H (test code = 775) RED BLOOD CELL COUNT (BEAKER) 2.85 M/ L 4.63-6.08 L (test code = 761) HEMOGLOBIN (BEAKER) (test code = 8.4 GM/DL 13.7-17.5 L 410) HEMATOCRIT (BEAKER) (test code = 26.8 % 40.1-51.0 L 411) MEAN CORPUSCULAR VOLUME (BEAKER) 94 fL 79-92 H (test code = 753) MEAN CORPUSCULAR HEMOGLOBIN 29.5 pg 25.7-32.2 (BEAKER) (test code = 751) MEAN CORPUSCULAR HEMOGLOBIN CONC 31.3 GM/DL 32.3-36.5 L (BEAKER) (test code = 752) RED CELL DISTRIBUTION WIDTH 14.4 % 11.6-14.4 (BEAKER) (test code = 412) PLATELET COUNT (BEAKER) (test 258 K/CU MM 150-450 code = 756) MEAN PLATELET VOLUME (BEAKER) 8.6 fL 9.4-12.4 L (test code = 754) NUCLEATED RED BLOOD CELLS 0 /100 WBC 0-0 (BEAKER) (test code = 413) NEUTROPHILS RELATIVE PERCENT 80 % (BEAKER) (test code = 429) LYMPHOCYTES RELATIVE PERCENT 5 % (BEAKER) (test code = 430) MONOCYTES RELATIVE PERCENT 11 % (BEAKER) (test code = 431) EOSINOPHILS RELATIVE PERCENT 3 % (BEAKER) (test code = 432) BASOPHILS RELATIVE PERCENT 0 % (BEAKER) (test code = 437) NEUTROPHILS ABSOLUTE COUNT 10.10 K/ L 1.78-5.38 H (BEAKER) (test code = 670) LYMPHOCYTES ABSOLUTE COUNT 0.59 K/ L 1.32-3.57 L (BEAKER) (test code = 414) MONOCYTES ABSOLUTE COUNT (BEAKER) 1.32 K/ L 0.30-0.82 H (test code = 415) EOSINOPHILS ABSOLUTE COUNT 0.40 K/ L 0.04-0.54 (BEAKER) (test code = 416) BASOPHILS ABSOLUTE COUNT (BEAKER) 0.02 K/ L 0.01-0.08 (test code = 417) IMMATURE GRANULOCYTES-RELATIVE 1.10 % 0.00-1.00 H PERCENT (BEAKER) (test code = 2801) CTA AAA AND [id number] 12:56:45 [facility] 1945 Sex: M ADDENDUM #1 Addendum:Small bilateral pleural effusionsI agree with the previously describednon vascular findings by .Electronically Signed By: Chris Duncan ORIGINAL REPORT CT angiography of the abdominal aorta with runoff, [id number]: This is a 76 years-old male with 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 Images were obtained beforeand during the dynamic passage of intravenous contrast material. Multi-planar 3-D volume-rendering reconstruction was performed using an[employer] workstation interactively by the interpreting physician aswell as the 3-D specialist for optimal visualisation of the abdominalaorta, pelvic arteries, and its peripheral branches.Please refer to the contrast sheet scanned in the EPIC system for theamount and route of contrast given.This exam was performed according to our departmental dose-optimisationprogramme, which includes automated exposure control, adjustment of themA and/or kV according to patient size and/or use of iterativereconstruction technique. Dose modulation, iterative reconstruction,and/or weight based adjustment of the mA/kV was utilized to reduce theradiation dose to as low as reasonably achievable.FINDINGS: VASCULAR:Patient is identified in the right-sided cardiac chambers. Mild leftatrial prominence is identified. Carotid calcification identified in theLAD and RCA territories as well as in the visualised LCx territory.Vascular structure is identified in the left ventricle outflow tract andpartially seen in the ascending thoracic aorta. This likely represent anassisted device. This is also seen in the descending thoracic aorta,abdominal aorta,and is inserted through the left groin through the leftpelvic arteries. Correlate with implantation history.The abdominal aorta is normal in course and calibre. However, diffusecalcific and noncalcificatherosclerosis identified. No dilation isseen.Quantitative dimensions of the abdominal aorta are asfollows: 2.2 cmat the mesenteric segment; 1.9 cm at the renal segment; and 1.7 cm atthe aortic bifurcation. The coeliac axis, SMA, are seen to be widely patent. The DARREN is tiny incalibre. The right renal artery is identified. The left renal artery ispatent, however, before bifurcation at the level of the left renalpelvis, noncalcific atherosclerosis identified, with mild to moderatelesion present, for example at image 150. In the right, the right common iliac, and the right external iliac andthe right common femoral arteries are seen to be patent, with scattereddiffuse calcific and noncalcific atherosclerosis present, nonobstructivein nature. In addition, and artery lines identified through the rightgroin, and enters the right common femoral artery terminates in the verydistal right external iliac artery.The proximal right SFA is identified, however, patient is post rightabove knee amputation.Inthe left, the left common iliac, left external iliac and the leftcommon femoral arteries are probably unremarkable, however, the presenceof the arterial catheter makes accurate assessment limited. Thereafter,the left SFA is widely patent, however, diffuse scattered calcific andnoncalcific atherosclerosis is seen. No stenosis is seen and nodissection is identified. The left profunda system is also unre markable.Much of the left popliteal artery is unremarkable with scatteredcalcification identified, however, at the level of the left knee joint,it is obscured by the artefact from the left knee replacement.In the second dynamic data set, regarding the left lower extremity, theleft tibioperoneal trunk is patent. The left peroneal artery is patentwell seen down to level of ankle. The left posterior tibial artery isalso patent and the plantar arch is seen distally. A stenosis seen atthe takeoff of the left anterior tibial artery at image 116 the seconddynamic data set. The proximal half of the left anterior tibial arteryis patent. The distal half of the artery is not well appreciated even inthe second dynamic data set indicating diffuse disease.NON-VASCULAR:Bibasal pleural effusion identified, with associated dependent changes. No nodule is identified, where visualised. The Hounsfield unit of thepleural effusion is dense in the precontrast series and may suggest ablood component. An addendum dictated thereafter if needed.In the abdomen, the liver and spleen appears unremarkable. The liveredge is smooth. No abnormal enhancing structure is identified. TheHounsfield unit of the liver is increased in the precontrast series, apotential differential diagnosis could include medication induced.Correlate clinically.Sludge versus gallstones are seen in the gallbladder with no wallthickening identified. The adrenal glands are not enlarged. The pancreasappears unremarkable.The right kidney is identified with surgical clips identified. In theprecontrast series, the left kidney has contrast in the renal pelvis andcortical scarring is identified in the left kidney. No hydronephrosis orperirenal fluid collection is seen.The pancreas appears unremarkable.Bowel is incompletely assessed as enteric contrast is not given. Nobowel dilation is identified.No free air is identified in the abdomen and pelvis.The prostate gland is unremarkable. The bladder is not distended andfull of contrast, and circumferential wall thickening is identified.Correlate for presence or absence of cystitis.Stranding is identified in the left iliac fossa, representing smallretroperitoneal haematoma. No acute extravasation of contrast identifiedfrom the adjacent arterial structure. Inflammatory changes is alsoidentified in the leftgroin, likely related to assisted deviceplacement. Less inflammatory changes identified in the rightgroin. Nodiscrete haematoma is identified in the left and the right groin.No acute bony pathology isidentified. Patient is post right above kneeamputation. 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 Patient is post assisted device, through the left groin, through theabdominal aorta/descending thoracic aorta and terminates in the leftventricular outflow tract. No thrombus is seen along the catheter.2. The abdominal aorta is normal in course and calibre. Diffuseperipheral calcification is seen. No dilation is identified. There is noevidence of acute aortic pathology, specifically, there is nodissection, intramural hematoma, or contained rupture. Quantitative dimension of the abdomin al aorta are as noted.3. The left pelvic arteries appears to be unremarkable and much of theleft arterial system is obscured by the assisted device catheter.The left SFA and the left profunda system isunremarkable. The leftpopliteal arteries unremarkable. Nonobstructive atherosclerosis is seen.Details of the runoff vessels in the left lower extremity as describedabove.4. The right pelvic arteries are unremarkable. An arterial catheter isseen and terminates in the distal right external iliac artery.Patient is post right above knee amputation, in the proximal rightthigh.5. Other findings as described above.Mild bibasal pleural effusion.Small left retroperitoneal haematoma is identified with stranding notedleft iliac fossa, located anterior to the left iliac psoas muscle.6. An addendum will be dictated by the Broiler Manager Radiologist regardingthe nonvascular findings.THE REPORT WILL ONLY BE CONSIDERED COMPLETE AFTER THE ADDENDUM HAS BEENDICTATED.Electronically Signed By: Maldonado Hawkins 12:58 CDTWorkstation Name: [id number] METABOLIC PANEL 2022-08-28 05:36:34 Test Item Value Reference Range Interpretation Comments SODIUM (BEAKER) 135 meq/L 136-145 L (test code = 381) POTASSIUM 3.9 meq/L 3.5-5.1 (BEAKER) (test code = 379) CHLORIDE (BEAKER) 100 meq/L 98-107 (test code = 382) CO2 (BEAKER) 25 meq/L 22-29 (test code = 355) BLOOD UREA 24 mg/dL 7-21 H NITROGEN (BEAKER) (test code = 354) CREATININE 3.19 mg/dL 0.57-1.25 H (BEAKER) (test code = 358) GLUCOSE RANDOM 138 mg/dL 70-105 H (BEAKER) (test code = 652) CALCIUM (BEAKER) 8.3 mg/dL 8.4-10.2 L (test code = 697) EGFR (BEAKER) 20 Interpretatio n of eGFR (test code = [...] not appl icable for dialysis patien ts [employer] Specialist ID - KINGA [id number] 05:35:39 Test Item Value Reference Range Interpretation Comments MAGNESIUM (BEAKER) (test code = 1.9 mg/dL 1.6-2.6 627) [employer] Specialist ID - KINGA WCBC W/PLT COUNT & AUTO [id number] 05:10:08 Test Item Value Reference Range Interpretation Comments WHITE BLOOD CELL COUNT (BEAKER) 13.1 K/ L 3.5-10.5 H (test code = 775) RED BLOOD CELL COUNT (BEAKER) 2.74 M/ L 4.63-6.08 L (test code = 761) HEMOGLOBIN (BEAKER) (test code = 8.3 GM/DL 13.7-17.5 L 410) HEMATOCRIT (BEAKER) (test code = 25.7 % 40.1-51.0 L 411) MEAN CORPUSCULAR VOLUME (BEAKER) 94 fL 79-92 H (test code = 753) MEAN CORPUSCULAR HEMOGLOBIN 30.3 pg 25.7-32.2 (BEAKER) (test code = 751) MEAN CORPUSCULAR HEMOGLOBIN CONC 32.3 GM/DL 32.3-36.5 (BEAKER) (test code = 752) RED CELL DISTRIBUTION WIDTH 14.7 % 11.6-14.4 H (BEAKER) (test code = 412) PLATELET COUNT (BEAKER) (test 252 K/CU MM 150-450 code = 756) MEAN PLATELET VOLUME (BEAKER) 9.1 fL 9.4-12.4 L (test code = 754) NUCLEATED RED BLOOD CELLS 0 /100 WBC 0-0 (BEAKER) (test code = 413) NEUTROPHILS RELATIVE PERCENT 83 % (BEAKER) (test code = 429) LYMPHOCYTES RELATIVE PERCENT 3 % (BEAKER) (test code = 430) MONOCYTES RELATIVE PERCENT 10 % (BEAKER) (test code = 431) EOSINOPHILS RELATIVE PERCENT 3 % (BEAKER) (test code = 432) BASOPHILS RELATIVE PERCENT 0 % (BEAKER) (test code = 437) NEUTROPHILS ABSOLUTE COUNT 10.93 K/ L 1.78-5.38 H (BEAKER) (test code = 670) LYMPHOCYTES ABSOLUTE COUNT 0.37 K/ L 1.32-3.57 L (BEAKER) (test code = 414) MONOCYTES ABSOLUTE COUNT (BEAKER) 1.34 K/ L 0.30-0.82 H (test code = 415) EOSINOPHILS ABSOLUTE COUNT 0.34 K/ L 0.04-0.54 (BEAKER) (test code = 416) BASOPHILS ABSOLUTE COUNT (BEAKER) 0.02 K/ L 0.01-0.08 (test code = 417) IMMATURE GRANULOCYTES-RELATIVE 0.90 % 0.00-1.00 PERCENT (BEAKER) (test code = 2801) BASIC METABOLIC [id number] 19:31:36 Test Item Value Reference Range Interpretation Comments SODIUM (BEAKER) 136 meq/L 136-145 (test code = 381) POTASSIUM 4.0 meq/L 3.5-5.1 (BEAKER) (test code = 379) CHLORIDE (BEAKER) 101 meq/L 98-107 (test code = 382) CO2 (BEAKER) 26 meq/L 22-29 (test code = 355) BLOOD UREA 19 mg/dL 7-21 NITROGEN (BEAKER) (test code = 354) CREATININE 2.50 mg/dL 0.57-1.25 H (BEAKER) (test code = 358) GLUCOSE RANDOM 104 mg/dL 70-105 (BEAKER) (test code = 652) CALCIUM (BEAKER) 8.6 mg/dL 8.4-10.2 (test code = 697) EGFR (BEAKER) 26 Interpretatio n of eGFR (test code = [...] not appl icable for dialysis patien ts HEMOGLOBIN AND [id number] 18:54:04 Test Item Value Reference Range Interpretation Comments HEMOGLOBIN (BEAKER) (test code = 8.9 GM/DL 13.7-17.5 L 410) HEMATOCRIT (BEAKER) (test code = 27.7 % 40.1-51.0 L 411) [employer] Specialist ID - [id number] 06:33:39 Test Item Value Reference Range Interpretation Comments ACTIVATED CLOTTING TIME 221 sec : 74 -137 seconds, (BEAKER) (test code = Baseli ne: TESTED AT 441) [facility] [address] [facility], 770 30: [employer] Specialist/Techni joann ID = [id number] for TORI GAMING [id number] 06:33:38 Test Item Value Reference Range Interpretation Comments ACTIVATED CLOTTING TIME 149 sec : 74 -137 seconds, (BEAKER) (test code = Baseli ne: TESTED AT 441) [facility] [address] [facility], 770 30: [employer] Specialist/Techni joann ID = [id number] for TORI GAMING BASIC METABOLIC [id number] 03:16:29 Test Item Value Reference Range Interpretation Comments SODIUM (BEAKER) 135 meq/L 136-145 L (test code = 381) POTASSIUM 3.8 meq/L 3.5-5.1 (BEAKER) (test code = 379) CHLORIDE (BEAKER) 99 meq/L 98-107 (test code = 382) CO2 (BEAKER) 24 meq/L 22-29 (test code = 355) BLOOD UREA 38 mg/dL 7-21 H NITROGEN (BEAKER) (test code = 354) CREATININE 4.22 mg/dL 0.57-1.25 H (BEAKER) (test code = 358) GLUCOSE RANDOM 85 mg/dL 70-105 (BEAKER) (test code = 652) CALCIUM (BEAKER) 8.2 mg/dL 8.4-10.2 L (test code = 697) EGFR (BEAKER) 14 [...] not appl icable for dialysis patien ts [id number] 02:51:51 Test Item Value Reference Range Interpretation Comments MAGNESIUM (BEAKER) (test code = 2.1 mg/dL 1.6-2.6 627) [id number] 02:51:51 Test Item Value Reference Range Interpretation Comments PHOSPHORUS (BEAKER) (test code = 2.8 mg/dL 2.3-4.7 604) CALCIUM, [id number] 02:21:37 Test Item Value Reference Range Interpretation Comments CALCIUM IONIZED (BEAKER) (test 1.07 mmol/L 1.12-1.27 L code = 698) PH, BLOOD (BEAKER) (test code = 7.40 1810) CBC W/PLT COUNT & AUTO [id number] 02:20:36 Test Item Value Reference Range Interpretation Comments WHITE BLOOD CELL COUNT (BEAKER) 12.6 K/ L 3.5-10.5 H (test code = 775) RED BLOOD CELL COUNT (BEAKER) 2.46 M/ L 4.63-6.08 L (test code = 761) HEMOGLOBIN (BEAKER) (test code = 7.3 GM/DL 13.7-17.5 L 410) HEMATOCRIT (BEAKER) (test code = 22.8 % 40.1-51.0 L 411) MEAN CORPUSCULAR VOLUME (BEAKER) 93 fL 79-92 H (test code = 753) MEAN CORPUSCULAR HEMOGLOBIN 29.7 pg 25.7-32.2 (BEAKER) (test code = 751) MEAN CORPUSCULAR HEMOGLOBIN CONC 32.0 GM/DL 32.3-36.5 L (BEAKER) (test code = 752) RED CELL DISTRIBUTION WIDTH 14.8 % 11.6-14.4 H (BEAKER) (test code = 412) PLATELET COUNT (BEAKER) (test 228 K/CU MM 150-450 code = 756) MEAN PLATELET VOLUME (BEAKER) 8.8 fL 9.4-12.4 L (test code = 754) NUCLEATED RED BLOOD CELLS 0 /100 WBC 0-0 (BEAKER) (test code = 413) NEUTROPHILS RELATIVE PERCENT 82 % (BEAKER) (test code = 429) LYMPHOCYTES RELATIVE PERCENT 5 % (BEAKER) (test code = 430) MONOCYTES RELATIVE PERCENT 9 % (BEAKER) (test code = 431) EOSINOPHILS RELATIVE PERCENT 4 % (BEAKER) (test code = 432) BASOPHILS RELATIVE PERCENT 0 % (BEAKER) (test code = 437) NEUTROPHILS ABSOLUTE COUNT 10.27 K/ L 1.78-5.38 H (BEAKER) (test code = 670) LYMPHOCYTES ABSOLUTE COUNT 0.61 K/ L 1.32-3.57 L (BEAKER) (test code = 414) MONOCYTES ABSOLUTE COUNT (BEAKER) 1.11 K/ L 0.30-0.82 H (test code = 415) EOSINOPHILS ABSOLUTE COUNT 0.46 K/ L 0.04-0.54 (BEAKER) (test code = 416) BASOPHILS ABSOLUTE COUNT (BEAKER) 0.02 K/ L 0.01-0.08 (test code = 417) IMMATURE GRANULOCYTES-RELATIVE 0.80 % 0.00-1.00 PERCENT (BEAKER) (test code = 2801) BASIC METABOLIC [id number] 16:18:44 Test Item Value Reference Range Interpretation Comments SODIUM (BEAKER) 138 meq/L 136-145 (test code = 381) POTASSIUM 4.0 meq/L 3.5-5.1 (BEAKER) (test code = 379) CHLORIDE (BEAKER) 102 meq/L 98-107 (test code = 382) CO2 (BEAKER) 26 meq/L 22-29 (test code = 355) BLOOD UREA 33 mg/dL 7-21 H NITROGEN (BEAKER) (test code = 354) CREATININE 3.88 mg/dL 0.57-1.25 H (BEAKER) (test code = 358) GLUCOSE RANDOM 110 mg/dL 70-105 H (BEAKER) (test code = 652) CALCIUM (BEAKER) 8.4 mg/dL 8.4-10.2 (test code = 697) EGFR [...] not appl icable for dialysis patien ts [employer] Specialist ID - MARCOHEMOGLOBIN AND [id number] 15:48:06 Test Item Value Reference Range Interpretation Comments HEMOGLOBIN (BEAKER) (test code = 7.6 GM/DL 13.7-17.5 L 410) HEMATOCRIT (BEAKER) (test code = 23.4 % 40.1-51.0 L 411) [employer] Specialist ID - [id number] CHEST 1 VIEW PORTABLE / [id number] 14:04:27 [facility] 1945 Sex: MHISTORY: Shortness of breath, hemoptysisCOMPARISON: 08/25/2022FINDINGS: Mild subsegmental atelectasis at the right lung base. Intervaldecrease in the pulmonary edema, which appears to resolved.Minimal pleural effusions. No pneumothorax.The heart shadow is is enlarged, unchanged. Right subclavian transvenouscardiac pacing hardware remains in place. Electronically Signed By: Alon Brown08/26/2022 14:06 CDTWorkstation Name: [id number] 07:54:07 Test Item Value Reference Range Interpretation Comments POC-GLUCOSE METER 117 mg/dL 70-110 H : TESTED A T [facility] 6720 (BEAKER) (test code = JOSE V[place]ADARES [place], 1538) [id number]: Smart [employer] Specialist/Techni joann ID = [id number] for Matt Saldivar BASIC METABOLIC [id number] 04:26:13 Test Item Value Reference Range Interpretation Comments SODIUM (BEAKER) 140 meq/L 136-145 (test code = 381) POTASSIUM 3.8 meq/L 3.5-5.1 (BEAKER) (test code = 379) CHLORIDE (BEAKER) 104 meq/L 98-107 (test code = 382) CO2 (BEAKER) 26 meq/L 22-29 (test code = 355) BLOOD UREA 23 mg/dL 7-21 H NITROGEN (BEAKER) (test code = 354) CREATININE 3.15 mg/dL 0.57-1.25 H (BEAKER) (test code = 358) GLUCOSE RANDOM 88 mg/dL 70-105 (BEAKER) (test code = 652) CALCIUM (BEAKER) 8.6 mg/dL 8.4-10.2 (test code = 697) EGFR (BEAKER) 20 Interpretatio n of eGFR (test code = [...] not appl icable for dialysis patien ts [id number] 04:24:00 Test Item Value Reference Range Interpretation Comments PHOSPHORUS (BEAKER) (test code = 2.9 mg/dL 2.3-4.7 604) [id number] 04:23:59 Test Item Value Reference Range Interpretation Comments MAGNESIUM (BEAKER) (test code = 2.2 mg/dL 1.6-2.6 627) CALCIUM, [id number] 03:55:43 Test Item Value Reference Range Interpretation Comments CALCIUM IONIZED (BEAKER) (test 1.09 mmol/L 1.12-1.27 L code = 698) PH, BLOOD (BEAKER) (test code = 7.46 1810) CBC W/PLT COUNT & AUTO [id number] 03:54:23 Test Item Value Reference Range Interpretation Comments WHITE BLOOD CELL COUNT (BEAKER) 12.8 K/ L 3.5-10.5 H (test code = 775) RED BLOOD CELL COUNT (BEAKER) 2.70 M/ L 4.63-6.08 L (test code = 761) HEMOGLOBIN (BEAKER) (test code = 7.8 GM/DL 13.7-17.5 L 410) HEMATOCRIT (BEAKER) (test code = 24.9 % 40.1-51.0 L 411) MEAN CORPUSCULAR VOLUME (BEAKER) 92 fL 79-92 (test code = 753) MEAN CORPUSCULAR HEMOGLOBIN 28.9 pg 25.7-32.2 (BEAKER) (test code = 751) MEAN CORPUSCULAR HEMOGLOBIN CONC 31.3 GM/DL 32.3-36.5 L (BEAKER) (test code = 752) RED CELL DISTRIBUTION WIDTH 14.9 % 11.6-14.4 H (BEAKER) (test code = 412) PLATELET COUNT (BEAKER) (test 214 K/CU MM 150-450 code = 756) MEAN PLATELET VOLUME (BEAKER) 8.9 fL 9.4-12.4 L (test code = 754) NUCLEATED RED BLOOD CELLS 0 /100 WBC 0-0 (BEAKER) (test code = 413) NEUTROPHILS RELATIVE PERCENT 84 % (BEAKER) (test code = 429) LYMPHOCYTES RELATIVE PERCENT 4 % (BEAKER) (test code = 430) MONOCYTES RELATIVE PERCENT 9 % (BEAKER) (test code = 431) EOSINOPHILS RELATIVE PERCENT 1 % (BEAKER) (test code = 432) BASOPHILS RELATIVE PERCENT 0 % (BEAKER) (test code = 437) NEUTROPHILS ABSOLUTE COUNT 10.77 K/ L 1.78-5.38 H (BEAKER) (test code = 670) LYMPHOCYTES ABSOLUTE COUNT 0.52 K/ L 1.32-3.57 L (BEAKER) (test code = 414) MONOCYTES ABSOLUTE COUNT (BEAKER) 1.20 K/ L 0.30-0.82 H (test code = 415) EOSINOPHILS ABSOLUTE COUNT 0.17 K/ L 0.04-0.54 (BEAKER) (test code = 416) BASOPHILS ABSOLUTE COUNT (BEAKER) 0.04 K/ L 0.01-0.08 (test code = 417) IMMATURE GRANULOCYTES-RELATIVE 0.90 % 0.00-1.00 PERCENT (BEAKER) (test code = 2801) BASIC METABOLIC [id number] 21:06:36 Test Item Value Reference Range Interpretation Comments SODIUM (BEAKER) 138 meq/L 136-145 (test code = 381) POTASSIUM 3.7 meq/L 3.5-5.1 (BEAKER) (test code = 379) CHLORIDE (BEAKER) 102 meq/L 98-107 (test code = 382) CO2 (BEAKER) 26 meq/L 22-29 (test code = 355) BLOOD UREA 19 mg/dL 7-21 NITROGEN (BEAKER) (test code = 354) CREATININE 2.42 mg/dL 0.57-1.25 H (BEAKER) (test code = 358) GLUCOSE RANDOM 132 mg/dL 70-105 H (BEAKER) (test code = 652) CALCIUM (BEAKER) 8.8 mg/dL 8.4-10.2 (test code = 697) EGFR (BEAKER) 27 Interpretati on of eGFR (test code = [...] not appl icable for dialysis patien ts HEMOGLOBIN AND [id number] 20:37:17 Test Item Value Reference Range Interpretation Comments HEMOGLOBIN (BEAKER) (test code = 8.4 GM/DL 13.7-17.5 L 410) HEMATOCRIT (BEAKER) (test code = 25.8 % 40.1-51.0 L 411) [employer] Specialist ID - [id number]-GLUCOSE [id number] 16:41:43 Test Item Value Reference Range Interpretation Comments POC-GLUCOSE METER 172 mg/dL 70-110 H : TESTED A T [facility] 6720 (BEAKER) (test code = JOSE Alva [facility], 1538) [id number]: Smart [employer] Specialist/Techni joann ID = [id number] for Josué Turner [id number] 14:53:31 Test Item Value Reference Range Interpretation Comments PHOSPHORUS (BEAKER) 4.4 mg/dL 2.3-4.7 Specimen slightly (test code = 604) hemolyzed [id number] 14:53:30 Test Item Value Reference Range Interpretation Comments MAGNESIUM (BEAKER) 2.5 mg/dL 1.6-2.6 Specimen slightly (test code = 627) hemolyzed BASIC METABOLIC [id number] 13:11:17 Test Item Value Reference Range Interpretation Comments SODIUM (BEAKER) 137 meq/L 136-145 (test code = 381) POTASSIUM 5.1 meq/L 3.5-5.1 Specimen slight ly (BEAKER) (test hemolyzed code = 379) CHLORIDE (BEAKER) 103 meq/L 98-107 (test code = 382) CO2 (BEAKER) 26 meq/L 22-29 (test code = 355) BLOOD UREA 31 mg/dL 7-21 H NITROGEN (BEAKER) (test code = 354) CREATININE 4.07 mg/dL 0.57-1.25 H Specimen slight ly (BEAKER) (test hemolyzed code = 358) GLUCOSE RANDOM 128 mg/dL 70-105 H (BEAKER) (test code = 652) CALCIUM (BEAKER) 9.5 mg/dL 8.4-10.2 (test code = 697) EGFR [...] not appl icable for dialysis patien ts [employer] Specialist ID - ADMINHIGH SENSITIVITY TROPONIN [id number] 13:11:01 Test Item Value Reference Range Interpretation Comments HIGH SENSITIVITY TROPONIN I (test 1092 pg/ml <=35 HH code = 0748272) [employer] Specialist ID - ADMINThe [employer]SEMBLER STAT High Sensitivity Troponin-I results should be used in conjunction with other diagnostic information such as ECG, clinical observations and information, and patientsymptoms to aid in the diagnosis of ME. HEMOGLOBIN AND [id number] 12:37:28 Test Item Value Reference Range Interpretation Comments HEMOGLOBIN (BEAKER) (test code = 8.5 GM/DL 13.7-17.5 L 410) HEMATOCRIT (BEAKER) (test code = 26.4 % 40.1-51.0 L 411) [employer] Specialist ID - [id number] CHEST 1 VIEW PORTABLE / [id number] 12:19:54 [facility] 1945 Sex: MHISTORY: Chest painCOMPARISON: 08/15/2022FINDINGS: Mild pulmonary edema. Small right pleural effusion issuspected. No pneumothorax.The heart shadow is enlarged, unchanged. Right subclavian transvenouscardiac pacing hardware remains in place.Electronically Signed By: Alon Brown08/25/2022 12:21 CDTWorkstation Name: [id number] 11:31:40 Test Item Value Reference Range Interpretation Comments POC-GLUCOSE METER 142 mg/dL 70-110 H : TESTED A T [facility] 6720 (BEAKER) (test code = JOSE Alva [facility], 1538) [id number]: [employer] Specialist/Techni joann ID = [id number] for Josué Turner CALCIUM, [id number] 10:23:54 Test Item Value Reference Range Interpretation Comments CALCIUM IONIZED (BEAKER) (test 1.21 mmol/L 1.12-1.27 code = 698) PH, BLOOD (BEAKER) (test code = 7.39 1810) BLOOD GAS, [id number] 10:21:35 Test Item Value Reference Range Interpretation Comments PH ARTERIAL (BEAKER) (test code = 7.39 7.35-7.45 383) PCO2 ARTERIAL (BEAKER) (test code 43 mm Hg 35-45 = 384) PO2 ARTERIAL (BEAKER) (test code = 236 mm Hg 80-90 H 385) O2 SATURATION ARTERIAL (BEAKER) 99.5 % 96.0-97.0 H (test code = 386) HCO3 ARTERIAL (BEAKER) (test code 25 mmol/L 21-29 = 388) BASE EXCESS ARTERIAL (BEAKER) 0.2 mmol/L -2.0-3.0 (test code = 387) PATIENT TEMPERATURE (BEAKER) (test 37.0 code = 1818) FIO2 (BEAKER) (test code = 1819) 95.0 HGB/HCT (H&H) - STAT [id number] 10:21:35 Test Item Value Reference Range Interpretation Comments HEMOGLOBIN (BEAKER) (test code = 8.8 GM/DL 13.0-16.8 L 410) HEMATOCRIT (BEAKER) (test code = 26.0 % 40.0-50.0 L 411) POTASSIUM-STAT [id number] 10:20:56 Test Item Value Reference Range Interpretation Comments POTASSIUM (BEAKER) (test code = 4.6 meq/L 3.6-5.5 379) GLUCOSE-STAT [id number] 10:20:50 Test Item Value Reference Range Interpretation Comments GLUCOSE RANDOM (BEAKER) (test code 113 mg/dL 70-110 H = 652) SODIUM NA-STAT [id number] 10:20:50 Test Item Value Reference Range Interpretation Comments SODIUM (BEAKER) (test code = 381) 136 meq/L 136-145 CALCIUM, [id number] 09:19:50 Test Item Value Reference Range Interpretation Comments CALCIUM IONIZED (BEAKER) (test 1.09 mmol/L 1.12-1.27 L code = 698) PH, BLOOD (BEAKER) (test code = 7.43 1810) SODIUM NA-STAT [id number] 09:17:24 Test Item Value Reference Range Interpretation Comments SODIUM (BEAKER) (test code = 381) 134 meq/L 136-145 L HGB/HCT (H&H) - STAT [id number] 09:17:18 Test Item Value Reference Range Interpretation Comments HEMOGLOBIN (BEAKER) (test code = 9.0 GM/DL 13.0-16.8 L 410) HEMATOCRIT (BEAKER) (test code = 26.0 % 40.0-50.0 L 411) BLOOD GAS, [id number] 09:17:16 Test Item Value Reference Range Interpretation Comments PH ARTERIAL (BEAKER) (test code = 7.42 7.35-7.45 383) PCO2 ARTERIAL (BEAKER) (test code 40 mm Hg 35-45 = 384) PO2 ARTERIAL (BEAKER) (test code = 227 mm Hg 80-90 H 385) O2 SATURATION ARTERIAL (BEAKER) 99.5 % 96.0-97.0 H (test code = 386) HCO3 ARTERIAL (BEAKER) (test code 26 mmol/L 21-29 = 388) BASE EXCESS ARTERIAL (BEAKER) 1.1 mmol/L -2.0-3.0 (test code = 387) PATIENT TEMPERATURE (BEAKER) (test 37.2 code = 1818) FIO2 (BEAKER) (test code = 1819) 95.0 GLUCOSE-STAT [id number] 09:17:00 Test Item Value Reference Range Interpretation Comments GLUCOSE RANDOM (BEAKER) (test code 126 mg/dL 70-110 H = 652) POTASSIUM-STAT [id number] 09:17:00 Test Item Value Reference Range Interpretation Comments POTASSIUM (BEAKER) (test code = 4.2 meq/L 3.6-5.5 379) POCT-GLUCOSE [id number] 07:48:06 Test Item Value Reference Range Interpretation Comments POC-GLUCOSE METER 104 mg/dL 70-110 : TESTED A T [facility] 6720 (BEAKER) (test code = JOSE [place], 1538) [address]: [employer] Specialist/Techni joann ID = [id number] for Kenton angelinaDariusjevon BASIC METABOLIC [id number] 04:14:06 Test Item Value Reference Range Interpretation Comments SODIUM (BEAKER) 138 meq/L 136-145 (test code = 381) POTASSIUM 4.5 meq/L 3.5-5.1 (BEAKER) (test code = 379) CHLORIDE (BEAKER) 103 meq/L 98-107 (test code = 382) CO2 (BEAKER) 25 meq/L 22-29 (test code = 355) BLOOD UREA 27 mg/dL 7-21 H NITROGEN (BEAKER) (test code = 354) CREATININE 3.67 mg/dL 0.57-1.25 H (BEAKER) (test code = 358) GLUCOSE RANDOM 85 mg/dL 70-105 (BEAKER) (test code = 652) CALCIUM (BEAKER) 8.7 mg/dL 8.4-10.2 (test code = 697) EGFR (BEAKER) 17 Interpretatio n of eGFR (test code = [...] not appl icable for dialysis patien ts [employer] Specialist ID - [id number] 04:06:35 Test Item Value Reference Range Interpretation Comments MAGNESIUM (BEAKER) (test code = 2.5 mg/dL 1.6-2.6 627) [employer] Specialist ID - [id number] 04:06:35 Test Item Value Reference Range Interpretation Comments PHOSPHORUS (BEAKER) (test code = 4.0 mg/dL 2.3-4.7 604) [employer] Specialist ID - ADMINCBC W/PLT COUNT & AUTO [id number] 03:37:37 Test Item Value Reference Range Interpretation Comments WHITE BLOOD CELL COUNT (BEAKER) 12.2 K/ L 3.5-10.5 H (test code = 775) RED BLOOD CELL COUNT (BEAKER) 2.71 M/ L 4.63-6.08 L (test code = 761) HEMOGLOBIN (BEAKER) (test code = 8.1 GM/DL 13.7-17.5 L 410) HEMATOCRIT (BEAKER) (test code = 24.7 % 40.1-51.0 L 411) MEAN CORPUSCULAR VOLUME (BEAKER) 91 fL 79-92 (test code = 753) MEAN CORPUSCULAR HEMOGLOBIN 29.9 pg 25.7-32.2 (BEAKER) (test code = 751) MEAN CORPUSCULAR HEMOGLOBIN CONC 32.8 GM/DL 32.3-36.5 (BEAKER) (test code = 752) RED CELL DISTRIBUTION WIDTH 15.4 % 11.6-14.4 H (BEAKER) (test code = 412) PLATELET COUNT (BEAKER) (test 205 K/CU MM 150-450 code = 756) MEAN PLATELET VOLUME (BEAKER) 8.8 fL 9.4-12.4 L (test code = 754) NUCLEATED RED BLOOD CELLS 0 /100 WBC 0-0 (BEAKER) (test code = 413) NEUTROPHILS RELATIVE PERCENT 82 % (BEAKER) (test code = 429) LYMPHOCYTES RELATIVE PERCENT 3 % (BEAKER) (test code = 430) MONOCYTES RELATIVE PERCENT 10 % (BEAKER) (test code = 431) EOSINOPHILS RELATIVE PERCENT 3 % (BEAKER) (test code = 432) BASOPHILS RELATIVE PERCENT 0 % (BEAKER) (test code = 437) NEUTROPHILS ABSOLUTE COUNT 9.99 K/ L 1.78-5.38 H (BEAKER) (test code = 670) LYMPHOCYTES ABSOLUTE COUNT 0.39 K/ L 1.32-3.57 L (BEAKER) (test code = 414) MONOCYTES ABSOLUTE COUNT (BEAKER) 1.24 K/ L 0.30-0.82 H (test code = 415) EOSINOPHILS ABSOLUTE COUNT 0.40 K/ L 0.04-0.54 (BEAKER) (test code = 416) BASOPHILS ABSOLUTE COUNT (BEAKER) 0.03 K/ L 0.01-0.08 (test code = 417) IMMATURE GRANULOCYTES-RELATIVE 1.30 % 0.00-1.00 H PERCENT (BEAKER) (test code = 2801) CALCIUM, [id number] 03:24:22 Test Item Value Reference Range Interpretation Comments CALCIUM IONIZED (BEAKER) (test 1.13 mmol/L 1.12-1.27 code = 698) PH, BLOOD (BEAKER) (test code = 7.40 1810) POCT-GLUCOSE [id number] 23:09:14 Test Item Value Reference Range Interpretation Comments POC-GLUCOSE METER 103 mg/dL 70-110 : TESTED A T [facility] 6720 (BEAKER) (test code = JOSE [place]ADARES [place], 1538) [address]: [employer] Specialist/Techni joann ID = [id number] for Will Chambers BASIC METABOLIC [id number] 20:29:12 Test Item Value Reference Range Interpretation Comments SODIUM (BEAKER) 138 meq/L 136-145 (test code = 381) POTASSIUM 4.6 meq/L 3.5-5.1 (BEAKER) (test code = 379) CHLORIDE (BEAKER) 103 meq/L 98-107 (test code = 382) CO2 (BEAKER) 28 meq/L 22-29 (test code = 355) BLOOD UREA 23 mg/dL 7-21 H NITROGEN (BEAKER) (test code = 354) CREATININE 3.29 mg/dL 0.57-1.25 H (BEAKER) (test code = 358) GLUCOSE RANDOM 138 mg/dL 70-105 H (BEAKER) (test code = 652) CALCIUM (BEAKER) 8.8 mg/dL 8.4-10.2 (test code = 697) EGFR (BEAKER) 19 Interpretatio n of eGFR (test code = mL/min/1.73 values Stage D escription 1092) sq m Result G1 Miguel l [...] not appl icable for dialysis patien ts [employer] Specialist ID - BSHEMOGLOBIN AND [id number] 20:06:53 Test Item Value Reference Range Interpretation Comments HEMOGLOBIN (BEAKER) (test code = 8.2 GM/DL 13.7-17.5 L 410) HEMATOCRIT (BEAKER) (test code = 24.9 % 40.1-51.0 L 411) Smart [employer] Specialist ID - [id number] METABOLIC [id number] 13:40:07 Test Item Value Reference Range Interpretation Comments SODIUM (BEAKER) 137 meq/L 136-145 (test code = 381) POTASSIUM 4.7 meq/L 3.5-5.1 (BEAKER) (test code = 379) CHLORIDE (BEAKER) 102 meq/L 98-107 (test code = 382) CO2 (BEAKER) 26 meq/L 22-29 (test code = 355) BLOOD UREA 20 mg/dL 7-21 NITROGEN (BEAKER) (test code = 354) CREATININE 2.81 mg/dL 0.57-1.25 H (BEAKER) (test code = 358) GLUCOSE RANDOM 97 mg/dL 70-105 (BEAKER) (test code = 652) CALCIUM (BEAKER) 9.2 mg/dL 8.4-10.2 (test code = 697) EGFR (BEAKER) 23 Interpretatio n of eGFR (test code = [...] not appl icable for dialysis patien ts [employer] Specialist ID - AAHAMIDHEMOGLOBIN AND [id number] 13:16:15 Test Item Value Reference Range Interpretation Comments HEMOGLOBIN (BEAKER) (test code = 8.5 GM/DL 13.7-17.5 L 410) HEMATOCRIT (BEAKER) (test code = 25.5 % 40.1-51.0 L 411) Smart [employer] Specialist ID - [id number]-GLUCOSE [id number] 11:35:10 Test Item Value Reference Range Interpretation Comments POC-GLUCOSE METER 97 mg/dL 70-110 : TESTED A T [facility] 6720 (BEAKER) (test code = JOSE Alva [facility], 1538) [address]: Smart [employer] Specialist/Techni joann ID = [id number] for REBECCA BERGMAN BASIC METABOLIC [id number] 10:24:08 Test Item Value Reference Range Interpretation Comments SODIUM (BEAKER) 136 meq/L 136-145 (test code = 381) POTASSIUM 4.5 meq/L 3.5-5.1 (BEAKER) (test code = 379) CHLORIDE (BEAKER) 102 meq/L 98-107 (test code = 382) CO2 (BEAKER) 27 meq/L 22-29 (test code = 355) BLOOD UREA 17 mg/dL 7-21 NITROGEN (BEAKER) (test code = 354) CREATININE 2.47 mg/dL 0.57-1.25 H (BEAKER) (test code = 358) GLUCOSE RANDOM 88 mg/dL 70-105 (BEAKER) (test code = 652) CALCIUM (BEAKER) 9.2 mg/dL 8.4-10.2 (test code = 697) EGFR (BEAKER) 27 Interpretatio n of eGFR (test code = mL/min/1.73 values Stage De scription 1092) sq m Result G1 Miguel l or high >=90 G2 Mildly decreased 60-89 G3a Mildl y to moderately 45-5 9 G3b Moderately to s everely 30-44 G4 Severl y decreased 15-29 G5 Kidne y failure <15Reported eGF R is based on the CKD-EPI 2020 equation that d oes not use a race coefficientEsti mated GFR is not as accur ate as Creatinine Mercedes phillip in predicting glom erular filtration rate . Estimated GFR is not appl icable for dialysis patien ts [employer] Specialist ID - AAHAMIDHEMOGLOBIN AND [id number] 08:50:46 Test Item Value Reference Range Interpretation Comments HEMOGLOBIN (BEAKER) (test code = 8.6 GM/DL 13.7-17.5 L 410) HEMATOCRIT (BEAKER) (test code = 25.7 % 40.1-51.0 L 411) [employer] Specialist ID - [id number](CELLAVISION MANUAL DIFF)2022-08-24 08:16:11 Test Item Value Reference Range Interpretation Comments NEUTROPHILS - REL 92 % (CELLAVISION)(BEAKER) (test code = 2816) LYMPHOCYTES - REL 1 % (CELLAVISION)(BEAKER) (test code = 2817) MONOCYTES - REL 3 % (CELLAVISION)(BEAKER) (test code = 2818) BASOPHILS - REL 3 % (CELLAVISION)(BEAKER) (test code = 2820) MYELOCYTES - REL 1 % 0-0 H (CELLAVISION)(BEAKER) (test code = 2822) NEUTROPHILS - ABS 16.28 K/ul 1.78-5.38 H (CELLAVISION)(BEAKER) (test code = 2830) LYMPHOCYTES - ABS 0.18 K/ul 1.32-3.57 L (CELLAVISION)(BEAKER) (test code = 2831) MONOCYTES - ABS 0.53 K/uL 0.30-0.82 (CELLAVISION)(BEAKER) (test code = 2832) BASOPHILS - ABS 0.53 K/uL 0.01-0.08 H (CELLAVISION)(BEAKER) (test code = 2835) MYELOCYTES-ABS 0.18 K/uL 0.00-0.00 H (CELLAVISION)(BEAKER) (test code = 2837) TOTAL COUNTED (BEAKER) (test code 100 = 1351) WBC MORPHOLOGY (BEAKER) (test Normal code = 487) PLT MORPHOLOGY (BEAKER) (test Normal code = 486) POLYCHROMATOPHILLIC RBCS(BEAKER) 2+ moderate (test code = 478) ANISOCYTOSIS (BEAKER) (test code 1+ few = 961) MICROCYTES (BEAKER) (test code = 1+ few 965) ARTIFACT (CELLAVISION)(BEAKER) Present (test code = 3432) PLATELET CONCENTRATION Adequate (CELLAVISION)(BEAKER) (test code = 3438) [employer] Specialist ID - keiko Guzman comments: Slide comments:CBC W/PLT COUNT & AUTO [id number] 08:16:10 Test Item Value Reference Range Interpretation Comments WHITE BLOOD CELL COUNT (BEAKER) 17.7 K/ L 3.5-10.5 H (test code = 775) RED BLOOD CELL COUNT (BEAKER) 2.95 M/ L 4.63-6.08 L (test code = 761) HEMOGLOBIN (BEAKER) (test code = 8.8 GM/DL 13.7-17.5 L 410) HEMATOCRIT (BEAKER) (test code = 26.2 % 40.1-51.0 L 411) MEAN CORPUSCULAR VOLUME (BEAKER) 89 fL 79-92 (test code = 753) MEAN CORPUSCULAR HEMOGLOBIN 29.8 pg 25.7-32.2 (BEAKER) (test code = 751) MEAN CORPUSCULAR HEMOGLOBIN CONC 33.6 GM/DL 32.3-36.5 (BEAKER) (test code = 752) RED CELL DISTRIBUTION WIDTH 15.6 % 11.6-14.4 H (BEAKER) (test code = 412) PLATELET COUNT (BEAKER) (test 248 K/CU MM 150-450 code = 756) MEAN PLATELET VOLUME (BEAKER) 8.7 fL 9.4-12.4 L (test code = 754) NUCLEATED RED BLOOD CELLS 0 /100 WBC 0-0 (BEAKER) (test code = 413) POCT-GLUCOSE [id number] 07:36:04 Test Item Value Reference Range Interpretation Comments POC-GLUCOSE METER 100 mg/dL 70-110 : TESTED A T [facility] 6720 (BEAKER) (test code = JOSE Alva [facility], 1538) [id number]: [employer] Specialist/Techni joann ID = [id number] for REBECCA SANTOS [id number] 05:08:39 Test Item Value Reference Range Interpretation Comments MAGNESIUM (BEAKER) (test code = 1.9 mg/dL 1.6-2.6 627) [employer] Specialist ID - [id number] 05:08:39 Test Item Value Reference Range Interpretation Comments PHOSPHORUS (BEAKER) (test code = 2.1 mg/dL 2.3-4.7 L 604) [employer] Specialist ID - MMCALCIUM, [id number] 04:29:10 Test Item Value Reference Range Interpretation Comments CALCIUM IONIZED (BEAKER) (test 1.20 mmol/L 1.12-1.27 code = 698) PH, BLOOD (BEAKER) (test code = 7.40 1810) POCT-GLUCOSE [id number] 04:22:30 Test Item Value Reference Range Interpretation Comments POC-GLUCOSE METER 87 mg/dL 70-110 : TESTED A T [facility] 6720 (BEAKER) (test code = JOSE Alva [facility], 1538) [id number]: [employer] Specialist/Techni joann ID = [id number] for DARRICK PETERSEN (V)HERMILO HIGH SENSITIVITY TROPONIN [id number] 00:44:13 Test Item Value Reference Range Interpretation Comments HIGH SENSITIVITY TROPONIN I (test 1313 pg/ml <=35 code = [id number]) [employer] Specialist ID - ADMINThe [employer] STAT High Sensitivity Troponin-I results should be used in conjunction with other diagnostic information such as ECG, clinical observations and information, and patientsymptoms to aid in the diagnosis of ME. BASIC METABOLIC [id number] 23:58:26 Test Item Value Reference Range Interpretation Comments SODIUM (BEAKER) 136 meq/L 136-145 (test code = 381) POTASSIUM 4.7 meq/L 3.5-5.1 (BEAKER) (test code = 379) CHLORIDE (BEAKER) 103 meq/L 98-107 (test code = 382) CO2 (BEAKER) 24 meq/L 22-29 (test code = 355) BLOOD UREA 22 mg/dL 7-21 H NITROGEN (BEAKER) (test code = 354) CREATININE 2.58 mg/dL 0.57-1.25 H (BEAKER) (test code = 358) GLUCOSE RANDOM 86 mg/dL 70-105 (BEAKER) (test code = 652) CALCIUM (BEAKER) 8.9 mg/dL 8.4-10.2 (test code = 697) EGFR (BEAKER) 25 Interpretatio n of eGFR (test code = [...] not appl icable for dialysis patien ts [employer] Specialist ID - ADMINPOCT-GLUCOSE [id number] 23:26:30 Test Item Value Reference Range Interpretation Comments POC-GLUCOSE METER 97 mg/dL 70-110 : TESTED A T [facility] 6720 (BEAKER) (test code = EFRENMARILEE VALLADARES [place], 1538) [id number]: [employer] Specialist/Techni joann ID = [id number] for MOLI NA (V), HERMILO HEMOGLOBIN AND [id number] 23:24:41 Test Item Value Reference Range Interpretation Comments HEMOGLOBIN (BEAKER) (test code = 8.6 GM/DL 13.7-17.5 L 410) HEMATOCRIT (BEAKER) (test code = 26.1 % 40.1-51.0 L 411) [employer] Specialist ID - [id number] ABDOMEN/KUB 1 VIEW [id number] 19:20:30 [facility] [place] : 1945 Sex: MEXAMINATION: XR ABDOMEN/KUB 1 VIEW PORTABLE INDICATION: ab painCOMPARISON: Abdominal radiograph 08/23/2022 FINDINGS/IMPRESSION:Grossly stable appearance of right femoral catheter and left femoralapproach Impella catheter.Unchanged nonspecific bowel gas pattern without definite evidence ofmechanical obstruction. Postsurgical changes are again noted throughout the abdomen. Contrastvisualized within the urinary bladder. No acute osseous abnormality. The visualized lung bases are clear.Electronically Signed By: Osito Kumar08/23/2022 19:22 CDTWorkstation Name: [id number] SENSITIVITY TROPONIN [id number] 18:29:55 Test Item Value Reference Range Interpretation Comments HIGH SENSITIVITY TROPONIN I (test 1116 pg/ml <=35 HH code = 3504087) Smart [employer] Specialist ID - BSThe LAY UPS ASSEMBLER STAT High Sensitivity Troponin-I results should be used in conjunctionwith other diagnostic information such as ECG, clinical observations and information, and patient symptoms to aid in the diagnosis of ME.POCT-GLUCOSE [id number] 18:29:45 Test Item Value Reference Range Interpretation Comments POC-GLUCOSE METER 129 mg/dL 70-110 H : TESTED A T [facility] 6720 (BEAKER) (test code = JOSE Alva [facility], 1538) [address]: Smart Energy Specialist/Techni joann ID = [id number] for RE YES, MADELYN LACTATE DEHYDROGENASE (LDH)2022-08-23 15:21:14 Test Item Value Reference Range Interpretation Comments LACTATE DEHYDROGENASE (BEAKER) (test 209 U/L 125-220 code = 635) Smart [employer] Specialist ID - ADMINHEPATIC FUNCTION [id number] 15:21:13 Test Item Value Reference Range Interpretation Comments TOTAL PROTEIN (BEAKER) (test code = 6.1 gm/dL 6.0-8.3 770) ALBUMIN (BEAKER) (test code = 1145) 3.3 g/dL 3.5-5.0 L BILIRUBIN TOTAL (BEAKER) (test code 0.4 mg/dL 0.2-1.2 = 377) BILIRUBIN DIRECT (BEAKER) (test 0.2 mg/dL 0.1-0.5 code = 706) ALKALINE PHOSPHATASE (BEAKER) (test 70 U/L 40-150 code = 346) AST (SGOT) (BEAKER) (test code = 17 U/L 5-34 353) ALT (SGPT) (BEAKER) (test code = 17 U/L 6-55 347) Smart [employer] Specialist ID - ADMINBASIC METABOLIC [id number] 15:01:07 Test Item Value Reference Range Interpretation Comments SODIUM (BEAKER) 136 meq/L 136-145 (test code = 381) POTASSIUM 4.6 meq/L 3.5-5.1 (BEAKER) (test code = 379) CHLORIDE (BEAKER) 101 meq/L 98-107 (test code = 382) CO2 (BEAKER) 26 meq/L 22-29 (test code = 355) BLOOD UREA 22 mg/dL 7-21 H NITROGEN (BEAKER) (test code = 354) CREATININE 3.03 mg/dL 0.57-1.25 H (BEAKER) (test code = 358) GLUCOSE RANDOM 88 mg/dL 70-105 (BEAKER) (test code = 652) CALCIUM (BEAKER) 8.7 mg/dL 8.4-10.2 (test code = 697) EGFR (BEAKER) 21 Interpretatio n of eGFR (test code = mL/min/1.73 values Stage De scription 1092) sq m Result G1 Miguel l or high >=90 G2 Mildly decreased 60-89 G3a Mildl y to moderately 45-5 9 G3b Moderately to s everely 30-44 G4 Sever ly decreased 15-29 G5 Kidney failure <15Repo rted eGFR is based on the CKD-EPI 1 equation t hat does not use a race coefficientEsti mated GFR is not as accur ate as Creatinine Mercedes phillip in predicting glom erular filtration rate . Estimated GFR is not appl icable for dialysis patien ts Smart Energy Specialist ID - ADMINHEMOGLOBIN AND [id number] 14:36:24 Test Item Value Reference Range Interpretation Comments HEMOGLOBIN (BEAKER) (test code = 6.4 GM/DL 13.7-17.5 L 410) HEMATOCRIT (BEAKER) (test code = 18.7 % 40.1-51.0 L 411) Smart Energy Specialist ID - [id number] AND [id number] 14:20:12 Test Item Value Reference Range Interpretation Comments HEMOGLOBIN (BEAKER) (test code = 6.2 GM/DL 13.7-17.5 L 410) HEMATOCRIT (BEAKER) (test code = 18.6 % 40.1-51.0 L 411) Smart Energy Specialist ID - [id number] SENSITIVITY TROPONIN [id number] 13:26:25 Test Item Value Reference Range Interpretation Comments HIGH SENSITIVITY TROPONIN I (test 816 pg/ml <=35 HH code = 3733330) Smart Energy Specialist ID - MMThe LAY UPS ASSEMBLER STAT High Sensitivity Troponin-I results should be used in conjunctionwith other diagnostic information such as ECG, clinical observations and information, and patient symptoms to aid in the diagnosis of ME.POCT-GLUCOSE [id number] 12:35:18 Test Item Value Reference Range Interpretation Comments POC-GLUCOSE METER 98 mg/dL 70-110 : TESTED A T [facility] 6720 (BEAKER) (test code = JOSE Alva [facility], 1538) [address]: Smart Energy Specialist/Techni joann ID = [id number] for Josué Chao BASIC METABOLIC [id number] 09:26:09 Test Item Value Reference Range Interpretation Comments SODIUM (BEAKER) 134 meq/L 136-145 L (test code = 381) POTASSIUM 4.7 meq/L 3.5-5.1 (BEAKER) (test code = 379) CHLORIDE (BEAKER) 100 meq/L 98-107 (test code = 382) CO2 (BEAKER) 28 meq/L 22-29 (test code = 355) BLOOD UREA 16 mg/dL 7-21 NITROGEN (BEAKER) (test code = 354) CREATININE 2.71 mg/dL 0.57-1.25 H (BEAKER) (test code = 358) GLUCOSE RANDOM 119 mg/dL 70-105 H (BEAKER) (test code = 652) CALCIUM (BEAKER) 9.0 mg/dL 8.4-10.2 (test code = 697) EGFR (BEAKER) 24 Interpretatio n of eGFR (test code = mL/min/1.73 values Stage D escription 1092) sq m Result G1 Miguel l [...] not appl icable for dialysis patien ts Smart Energy Specialist ID - [id number] 09:18:22 Test Item Value Reference Range Interpretation Comments PHOSPHORUS (BEAKER) (test code = 3.2 mg/dL 2.3-4.7 604) Smart [employer] Specialist ID - [id number] 09:18:21 Test Item Value Reference Range Interpretation Comments MAGNESIUM (BEAKER) (test code = 2.0 mg/dL 1.6-2.6 627) Smart [employer] Specialist ID - MMHIGH SENSITIVITY TROPONIN [id number] 07:49:35 Test Item Value Reference Range Interpretation Comments HIGH SENSITIVITY TROPONIN I (test 691 pg/ml <=35 HH code = 1240674) Smart [employer] Specialist ID - ADMINThe LAY UPS ASSEMBLER STAT High Sensitivity Troponin-I results should be used in conjunction with other diagnostic information such as ECG, clinical observations and information, and patientsymptoms to aid in the diagnosis of ME. LACTIC ACID, [id number] 07:32:39 Test Item Value Reference Range Interpretation Comments LACTATE BLOOD ARTERIAL (2) 1.0 mmol/L 0.5-2.0 (BEAKER) (test code = 2874) Smart [employer] Specialist ID - ADMIN(CELLAVISION MANUAL DIFF)2022-08-23 07:23:35 Test Item Value Reference Range Interpretation Comments NEUTROPHILS - REL 99 % (CELLAVISION)(BEAKER) (test code = 2816) MONOCYTES - REL 1 % (CELLAVISION)(BEAKER) (test code = 2818) NEUTROPHILS - ABS 23.36 K/ul 1.78-5.38 H (CELLAVISION)(BEAKER) (test code = 2830) MONOCYTES - ABS 0.24 K/uL 0.30-0.82 L (CELLAVISION)(BEAKER) (test code = 2832) TOTAL COUNTED (BEAKER) (test code 100 = 1351) WBC MORPHOLOGY (BEAKER) (test Normal code = 487) PLT MORPHOLOGY (BEAKER) (test Normal code = 486) POLYCHROMATOPHILLIC RBCS(BEAKER) 2+ moderate (test code = 478) ANISOCYTOSIS (BEAKER) (test code 3+ many = 961) MICROCYTES (BEAKER) (test code = 3+ many 965) ARTIFACT (CELLAVISION)(BEAKER) Present (test code = 3432) PLATELET CONCENTRATION Adequate (CELLAVISION)(BEAKER) (test code = 3438) [employer] Specialist ID - Phyllis OverholtUser comments: Slide comments:CBC W/PLT COUNT & AUTO [id number] 07:23:34 Test Item Value Reference Range Interpretation Comments WHITE BLOOD CELL COUNT (BEAKER) 23.6 K/ L 3.5-10.5 H (test code = 775) RED BLOOD CELL COUNT (BEAKER) 2.52 M/ L 4.63-6.08 L (test code = 761) HEMOGLOBIN (BEAKER) (test code = 7.7 GM/DL 13.7-17.5 L 410) HEMATOCRIT (BEAKER) (test code = 22.7 % 40.1-51.0 L 411) MEAN CORPUSCULAR VOLUME (BEAKER) 90 fL 79-92 (test code = 753) MEAN CORPUSCULAR HEMOGLOBIN 30.6 pg 25.7-32.2 (BEAKER) (test code = 751) MEAN CORPUSCULAR HEMOGLOBIN CONC 33.9 GM/DL 32.3-36.5 (BEAKER) (test code = 752) RED CELL DISTRIBUTION WIDTH 15.2 % 11.6-14.4 H (BEAKER) (test code = 412) PLATELET COUNT (BEAKER) (test 328 K/CU MM 150-450 code = 756) MEAN PLATELET VOLUME (BEAKER) 8.6 fL 9.4-12.4 L (test code = 754) NUCLEATED RED BLOOD CELLS 0 /100 WBC 0-0 (BEAKER) (test code = 413) POCT-GLUCOSE [id number] 06:36:33 Test Item Value Reference Range Interpretation Comments POC-GLUCOSE METER 189 mg/dL 70-110 H : Notified RN/MD: (BEAKER) (test code = TESTED AT [facility] 2277 9685) GENNY [facility], [address]: Smart Energy Specialist/Techni joann ID = [id number] for DANNY ALEXANDER BASIC METABOLIC [id number] 04:49:27 Test Item Value Reference Range Interpretation Comments SODIUM (BEAKER) 134 meq/L 136-145 L (test code = 381) POTASSIUM 4.7 meq/L 3.5-5.1 (BEAKER) (test code = 379) CHLORIDE (BEAKER) 99 meq/L 98-107 (test code = 382) CO2 (BEAKER) 24 meq/L 22-29 (test code = 355) BLOOD UREA 21 mg/dL 7-21 NITROGEN (BEAKER) (test code = 354) CREATININE 3.22 mg/dL 0.57-1.25 H (BEAKER) (test code = 358) GLUCOSE RANDOM 195 mg/dL 70-105 H (BEAKER) (test code = [...] not appl icable for dialysis patien ts Smart [employer] Specialist ID - MMCALCIUM, [id number] 04:42:29 Test Item Value Reference Range Interpretation Comments CALCIUM IONIZED (BEAKER) (test 1.10 mmol/L 1.12-1.27 L code = 698) PH, BLOOD (BEAKER) (test code = 7.40 1810) [id number] 04:39:34 Test Item Value Reference Range Interpretation Comments PHOSPHORUS (BEAKER) (test code = 3.4 mg/dL 2.3-4.7 604) Smart [employer] Specialist ID - [id number] 04:39:33 Test Item Value Reference Range Interpretation Comments MAGNESIUM (BEAKER) (test code = 1.9 mg/dL 1.6-2.6 627) Smart Energy Specialist ID - ADMINXR ABDOMEN/KUB 1 VIEW [id number] 03:21:19 [facility] 1945 Sex: MEXAM/TECHNIQUE: XR ABDOMEN/KUB 1 VIEW PORTABLEINDICATION: malfunctioning femoral lineCOMPARISON: None.FINDINGS: Right femoral catheter is present, grossly unremarkable in position.Left femoral Impella catheteris present. The contrast present in thebladder. No acute osseous process. Nonspecific bowel gas patte rn.IMPRESSION:Impression:Right femoral catheter is present, grossly unremarkable in position.Electronically Signed By: Austin Rivas08/23/2022 03:23 CDTWorkstation Name: [id number] METABOLIC [id number] 00:28:13 Test Item Value Reference Range Interpretation Comments SODIUM (BEAKER) 127 meq/L 136-145 L (test code = 381) POTASSIUM 4.6 meq/L 3.5-5.1 (BEAKER) (test code = 379) CHLORIDE (BEAKER) 93 meq/L 98-107 L (test code = 382) CO2 (BEAKER) 22 meq/L 22-29 (test code = 355) BLOOD UREA 31 mg/dL 7-21 H NITROGEN (BEAKER) (test code = 354) CREATININE 4.40 mg/dL 0.57-1.25 H (BEAKER) (test code = 358) GLUCOSE RANDOM 209 mg/dL 70-105 H (BEAKER) (test code = 652) CALCIUM (BEAKER) 8.3 mg/dL 8.4-10.2 L (test code = 697) EGFR (BEAKER) 13 [...] not appl icable for dialysis patien ts Smart [employer] Specialist ID - ADMINLACTATE DEHYDROGENASE (LDH)2022-08-23 00:18:53 Test Item Value Reference Range Interpretation Comments LACTATE DEHYDROGENASE (BEAKER) (test 193 U/L 125-220 code = 635) Smart [employer] Specialist ID - [id number] 00:18:52 Test Item Value Reference Range Interpretation Comments MAGNESIUM (BEAKER) (test code = 2.0 mg/dL 1.6-2.6 627) Smart [employer] Specialist ID - [id number] 00:18:52 Test Item Value Reference Range Interpretation Comments PHOSPHORUS (BEAKER) (test code = 3.8 mg/dL 2.3-4.7 604) Smart [employer] Specialist ID - ADMINCALCIUM, [id number] 23:50:14 Test Item Value Reference Range Interpretation Comments CALCIUM IONIZED (BEAKER) (test 1.05 mmol/L 1.12-1.27 L code = 698) PH, BLOOD (BEAKER) (test code = 7.38 1810) HEMOGLOBIN AND [id number] 23:49:17 Test Item Value Reference Range Interpretation Comments HEMOGLOBIN (BEAKER) (test code = 7.6 GM/DL 13.7-17.5 L 410) HEMATOCRIT (BEAKER) (test code = 23.1 % 40.1-51.0 L 411) Smart Energy Specialist ID - 6000POCT-GLUCOSE [id number] 23:49:06 Test Item Value Reference Range Interpretation Comments POC-GLUCOSE METER 231 mg/dL 70-110 H : TESTED A T [facility] 6720 (BEAKER) (test code = JOSE VALLADARES [place], 1538) [address]: Smart Energy Specialist/Techni joann ID = [id number] for RI PPLE, MANOLO BLOOD GAS, [id number] 21:20:15 Test Item Value Reference Range Interpretation Comments PH ARTERIAL (BEAKER) (test code = 7.38 7.35-7.45 383) PCO2 ARTERIAL (BEAKER) (test code 42 mm Hg 35-45 = 384) PO2 ARTERIAL (BEAKER) (test code 81 mm Hg 80-90 = 385) O2 SATURATION ARTERIAL (BEAKER) 95.9 % 96.0-97.0 L (test code = 386) HCO3 ARTERIAL (BEAKER) (test code 24 mmol/L 21-29 = 388) BASE EXCESS ARTERIAL (BEAKER) -0.9 mmol/L -2.0-3.0 (test code = 387) PATIENT TEMPERATURE (BEAKER) 36.7 (test code = 1818) FIO2 (BEAKER) (test code = 1819) 21.0 LACTIC ACID, [id number] 21:15:57 Test Item Value Reference Range Interpretation Comments LACTATE BLOOD ARTERIAL (2) 2.5 mmol/L 0.5-2.0 H (BEAKER) (test code = 2874) Smart Energy Specialist ID - [id number] 21:07:28 Test Item Value Reference Range Interpretation Comments PARTIAL THROMBOPLASTIN TIME 28.9 seconds 22.5-36.0 (BEAKER) (test code = 760) HEMOGLOBIN AND [id number] 19:16:33 Test Item Value Reference Range Interpretation Comments HEMOGLOBIN (BEAKER) (test code = 7.9 GM/DL 13.7-17.5 L 410) HEMATOCRIT (BEAKER) (test code = 23.8 % 40.1-51.0 L 411) Smart Energy Specialist ID - 6000BASIC METABOLIC [id number] 19:08:38 Test Item Value Reference Range Interpretation Comments SODIUM (BEAKER) 129 meq/L 136-145 L (test code = 381) POTASSIUM 5.0 meq/L 3.5-5.1 (BEAKER) (test code = 379) CHLORIDE (BEAKER) 96 meq/L 98-107 L (test code = 382) CO2 (BEAKER) 25 meq/L 22-29 (test code = 355) BLOOD UREA 26 mg/dL 7-21 H NITROGEN (BEAKER) (test code = 354) CREATININE 4.36 mg/dL 0.57-1.25 H (BEAKER) (test code = 358) GLUCOSE RANDOM 263 mg/dL 70-105 H (BEAKER) (test code = 652) CALCIUM (BEAKER) 8.1 mg/dL 8.4-10.2 L (test code = 697) EGFR (BEAKER) 13 [...] not appl icable for dialysis patien ts Smart Energy Specialist ID - [id number] 17:40:29 Test Item Value Reference Range Interpretation Comments PARTIAL THROMBOPLASTIN TIME > seconds 22.5-36.0 HH (BEAKER) (test code = 760) BASIC METABOLIC [id number] 16:26:47 Test Item Value Reference Range Interpretation Comments SODIUM (BEAKER) 130 meq/L 136-145 L (test code = 381) POTASSIUM 5.6 meq/L 3.5-5.1 H (BEAKER) (test code = 379) CHLORIDE (BEAKER) 97 meq/L 98-107 L (test code = 382) CO2 (BEAKER) 25 meq/L 22-29 (test code = 355) BLOOD UREA 23 mg/dL 7-21 H NITROGEN (BEAKER) (test code = 354) CREATININE 4.25 mg/dL 0.57-1.25 H (BEAKER) (test code = 358) GLUCOSE RANDOM 296 mg/dL 70-105 H (BEAKER) (test code = 652) CALCIUM (BEAKER) 8.1 mg/dL 8.4-10.2 L (test code = 697) EGFR (BEAKER) 14 [...] not appl icable for dialysis patien ts [id number] 14:30:40 Test Item Value Reference Range Interpretation Comments FIBRINOGEN LEVEL (BEAKER) (test 587 mg/dl 225-434 H code = 658) CBC W/PLT COUNT & AUTO [id number] 14:29:27 Test Item Value Reference Range Interpretation Comments WHITE BLOOD CELL COUNT (BEAKER) 14.5 K/ L 3.5-10.5 H (test code = 775) RED BLOOD CELL COUNT (BEAKER) 2.47 M/ L 4.63-6.08 L (test code = 761) HEMOGLOBIN (BEAKER) (test code = 7.4 GM/DL 13.7-17.5 L 410) HEMATOCRIT (BEAKER) (test code = 23.0 % 40.1-51.0 L 411) MEAN CORPUSCULAR VOLUME (BEAKER) 93 fL 79-92 H (test code = 753) MEAN CORPUSCULAR HEMOGLOBIN 30.0 pg 25.7-32.2 (BEAKER) (test code = 751) MEAN CORPUSCULAR HEMOGLOBIN CONC 32.2 GM/DL 32.3-36.5 L (BEAKER) (test code = 752) RED CELL DISTRIBUTION WIDTH 13.2 % 11.6-14.4 (BEAKER) (test code = 412) PLATELET COUNT (BEAKER) (test 370 K/CU MM 150-450 code = 756) MEAN PLATELET VOLUME (BEAKER) 8.5 fL 9.4-12.4 L (test code = 754) NUCLEATED RED BLOOD CELLS 0 /100 WBC 0-0 (BEAKER) (test code = 413) NEUTROPHILS RELATIVE PERCENT 88 % (BEAKER) (test code = 429) LYMPHOCYTES RELATIVE PERCENT 4 % (BEAKER) (test code = 430) MONOCYTES RELATIVE PERCENT 6 % (BEAKER) (test code = 431) EOSINOPHILS RELATIVE PERCENT 1 % (BEAKER) (test code = 432) BASOPHILS RELATIVE PERCENT 0 % (BEAKER) (test code = 437) NEUTROPHILS ABSOLUTE COUNT 12.73 K/ L 1.78-5.38 H (BEAKER) (test code = 670) LYMPHOCYTES ABSOLUTE COUNT 0.52 K/ L 1.32-3.57 L (BEAKER) (test code = 414) MONOCYTES ABSOLUTE COUNT (BEAKER) 0.88 K/ L 0.30-0.82 H (test code = 415) EOSINOPHILS ABSOLUTE COUNT 0.12 K/ L 0.04-0.54 (BEAKER) (test code = 416) BASOPHILS ABSOLUTE COUNT (BEAKER) 0.04 K/ L 0.01-0.08 (test code = 417) IMMATURE GRANULOCYTES-RELATIVE 1.50 % 0.00-1.00 H PERCENT (BEAKER) (test code = 2801) PROTHROMBIN [id number] 14:25:37 Test Item Value Reference Range Interpretation Comments PROTIME (BEAKER) (test code = 15.4 seconds 11.9-14.2 H 759) INR (BEAKER) (test code = 370) 1.25 <=5.90 RECOMMENDED COUMADIN/WARFARIN INR THERAPY RANGESSTANDARD DOSE: 2.0 - 3.0 Includes: PROPHYLAXIS for venous thrombosis, systemic embolization; TREATMENT for venous thrombosis and/or pulmonary embolus.HIGH RISK: Target INR is 2.5-3.5 for patients with mechanical heart valves.[id number] 10:49:17 Test Item Value Reference Range Interpretation Comments ACTIVATED CLOTTING TIME 281 sec : 74 -137 seconds, (BEAKER) (test code = Baseli ne: TESTED AT 441) [address], [facility] 30: Smart Energy Specialist/Techni joann ID = [id number] for SEAN BARBARA [id number] 09:57:12 Test Item Value Reference Range Interpretation Comments ACTIVATED CLOTTING TIME 305 sec : 74 -137 seconds, (BEAKER) (test code = Baseli ne: TESTED AT 441) [address], [address]70 30: Smart Energy Specialist/Techni joann ID = [id number] for DUNCAN AQUIN, RUSH [id number] 09:37:39 Test Item Value Reference Range Interpretation Comments ACTIVATED CLOTTING TIME 293 sec : 74 -137 seconds, (BEAKER) (test code = Baseli ne: TESTED AT 441) [facility] [address] [facility], 770 30: Smart Energy Specialist/Techni joann ID = [id number] for RUSH BARBA [id number] 09:21:50 Test Item Value Reference Range Interpretation Comments ACTIVATED CLOTTING TIME 263 sec : 74 -137 seconds, (BEAKER) (test code = Josselyni ne: TESTED AT 441) [address], [address]70 30: Smart Energy Specialist/Techni joann ID = [id number] for RUSH BARBA [id number] 09:10:27 Test Item Value Reference Range Interpretation Comments ACTIVATED CLOTTING TIME 239 sec : 74 -137 seconds, (BEAKER) (test code = Baseli ne: TESTED AT 441) [address], [address]70 30: Smart Energy Specialist/Techni joann ID = [id number] for RUSH ABRBA [id number] 06:32:28 Test Item Value Reference Range Interpretation Comments PARTIAL THROMBOPLASTIN TIME > seconds 22.5-36.0 HH (BEAKER) (test code = 760) BASIC METABOLIC [id number] 06:29:19 Test Item Value Reference Range Interpretation Comments SODIUM (BEAKER) 136 meq/L 136-145 (test code = 381) POTASSIUM 4.0 meq/L 3.5-5.1 (BEAKER) (test code = 379) CHLORIDE (BEAKER) 97 meq/L 98-107 L (test code = 382) CO2 (BEAKER) 29 meq/L 22-29 (test code = 355) BLOOD UREA 19 mg/dL 7-21 NITROGEN (BEAKER) (test code = 354) CREATININE 3.52 mg/dL 0.57-1.25 H (BEAKER) (test code = 358) GLUCOSE RANDOM 206 mg/dL 70-105 H (BEAKER) (test code = 652) CALCIUM (BEAKER) 9.0 mg/dL 8.4-10.2 (test code = 697) EGFR (BEAKER) 17 Interpretatio n of eGFR (test code = [...] not appl icable for dialysis patien ts Smart Energy Specialist ID - KINGA [id number] 06:23:10 Test Item Value Reference Range Interpretation Comments MAGNESIUM (BEAKER) (test code = 2.0 mg/dL 1.6-2.6 627) Smart Energy Specialist ID - KINGA [id number] 06:23:10 Test Item Value Reference Range Interpretation Comments PHOSPHORUS (BEAKER) (test code = 4.5 mg/dL 2.3-4.7 604) Smart Energy Specialist ID - KINGA WCBC W/PLT COUNT & AUTO [id number] 06:11:47 Test Item Value Reference Range Interpretation Comments WHITE BLOOD CELL COUNT (BEAKER) 10.0 K/ L 3.5-10.5 (test code = 775) RED BLOOD CELL COUNT (BEAKER) 2.61 M/ L 4.63-6.08 L (test code = 761) HEMOGLOBIN (BEAKER) (test code = 7.9 GM/DL 13.7-17.5 L 410) HEMATOCRIT (BEAKER) (test code = 24.4 % 40.1-51.0 L 411) MEAN CORPUSCULAR VOLUME (BEAKER) 94 fL 79-92 H (test code = 753) MEAN CORPUSCULAR HEMOGLOBIN 30.3 pg 25.7-32.2 (BEAKER) (test code = 751) MEAN CORPUSCULAR HEMOGLOBIN CONC 32.4 GM/DL 32.3-36.5 (BEAKER) (test code = 752) RED CELL DISTRIBUTION WIDTH 13.0 % 11.6-14.4 (BEAKER) (test code = 412) PLATELET COUNT (BEAKER) (test 313 K/CU MM 150-450 code = 756) MEAN PLATELET VOLUME (BEAKER) 8.8 fL 9.4-12.4 L (test code = 754) NUCLEATED RED BLOOD CELLS 0 /100 WBC 0-0 (BEAKER) (test code = 413) NEUTROPHILS RELATIVE PERCENT 76 % (BEAKER) (test code = 429) LYMPHOCYTES RELATIVE PERCENT 8 % (BEAKER) (test code = 430) MONOCYTES RELATIVE PERCENT 9 % (BEAKER) (test code = 431) EOSINOPHILS RELATIVE PERCENT 5 % (BEAKER) (test code = 432) BASOPHILS RELATIVE PERCENT 0 % (BEAKER) (test code = 437) NEUTROPHILS ABSOLUTE COUNT 7.63 K/ L 1.78-5.38 H (BEAKER) (test code = 670) LYMPHOCYTES ABSOLUTE COUNT 0.75 K/ L 1.32-3.57 L (BEAKER) (test code = 414) MONOCYTES ABSOLUTE COUNT (BEAKER) 0.93 K/ L 0.30-0.82 H (test code = 415) EOSINOPHILS ABSOLUTE COUNT 0.53 K/ L 0.04-0.54 (BEAKER) (test code = 416) BASOPHILS ABSOLUTE COUNT (BEAKER) 0.03 K/ L 0.01-0.08 (test code = 417) IMMATURE GRANULOCYTES-RELATIVE 1.60 % 0.00-1.00 H PERCENT (BEAKER) (test code = 2801) CALCIUM, [id number] 05:38:16 Test Item Value Reference Range Interpretation Comments CALCIUM IONIZED (BEAKER) (test 1.04 mmol/L 1.12-1.27 L code = 698) PH, BLOOD (BEAKER) (test code = 7.41 1810) [id number] 01:58:43 Test Item Value Reference Range Interpretation Comments PARTIAL THROMBOPLASTIN TIME 69.2 seconds 22.5-36.0 H (BEAKER) (test code = 760) BASIC METABOLIC [id number] 01:54:12 Test Item Value Reference Range Interpretation Comments SODIUM (BEAKER) 137 meq/L 136-145 (test code = 381) POTASSIUM 3.9 meq/L 3.5-5.1 (BEAKER) (test code = 379) CHLORIDE (BEAKER) 99 meq/L 98-107 (test code = 382) CO2 (BEAKER) 29 meq/L 22-29 (test code = 355) BLOOD UREA 18 mg/dL 7-21 NITROGEN (BEAKER) (test code = 354) CREATININE 3.12 mg/dL 0.57-1.25 H (BEAKER) (test code = 358) GLUCOSE RANDOM 114 mg/dL 70-105 H (BEAKER) (test code = 652) CALCIUM (BEAKER) 8.9 mg/dL 8.4-10.2 (test code = 697) EGFR (BEAKER) 20 Interpretatio n of eGFR (test code = mL/min/1.73 values Stage D escription 1092) sq m Result G1 Miguel l [...] not appl icable for dialysis patien ts [employer] Specialist ID - [id number] 01:52:57 Test Item Value Reference Range Interpretation Comments MAGNESIUM (BEAKER) (test code = 2.0 mg/dL 1.6-2.6 627) [employer] Specialist ID - ADMINBASIC METABOLIC [id number] 18:30:23 Test Item Value Reference Range Interpretation Comments SODIUM (BEAKER) 137 meq/L 136-145 (test code = 381) POTASSIUM 3.5 meq/L 3.5-5.1 (BEAKER) (test code = 379) CHLORIDE (BEAKER) 99 meq/L 98-107 (test code = 382) CO2 (BEAKER) 28 meq/L 22-29 (test code = 355) BLOOD UREA 17 mg/dL 7-21 NITROGEN (BEAKER) (test code = 354) CREATININE 2.39 mg/dL 0.57-1.25 H (BEAKER) (test code = 358) GLUCOSE RANDOM 116 mg/dL 70-105 H (BEAKER) (test code = 652) CALCIUM (BEAKER) 9.0 mg/dL 8.4-10.2 (test code = 697) EGFR (BEAKER) 28 Interpretatio n of eGFR (test code = [...] not appl icable for dialysis patien ts [employer] Specialist ID - [id number] 18:21:16 Test Item Value Reference Range Interpretation Comments PARTIAL THROMBOPLASTIN TIME 46.9 seconds 22.5-36.0 H (BEAKER) (test code = 760) [id number] 12:54:42 Test Item Value Reference Range Interpretation Comments PARTIAL THROMBOPLASTIN TIME 46.7 seconds 22.5-36.0 H (BEAKER) (test code = 760) BASIC METABOLIC [id number] 06:56:50 Test Item Value Reference Range Interpretation Comments SODIUM (BEAKER) 135 meq/L 136-145 L (test code = 381) POTASSIUM 4.4 meq/L 3.5-5.1 (BEAKER) (test code = 379) CHLORIDE (BEAKER) 101 meq/L 98-107 (test code = 382) CO2 (BEAKER) 22 meq/L 22-29 (test code = 355) BLOOD UREA 45 mg/dL 7-21 H NITROGEN (BEAKER) (test code = 354) CREATININE 5.79 mg/dL 0.57-1.25 H (BEAKER) (test code = 358) GLUCOSE RANDOM 82 mg/dL 70-105 (BEAKER) (test code = 652) CALCIUM (BEAKER) 8.9 mg/dL 8.4-10.2 (test code = 697) EGFR (BEAKER) 10 Interpretatio n of eGFR (test code = [...] not appl icable for dialysis patien ts [employer] Specialist ID - KINGA [id number] 06:54:34 Test Item Value Reference Range Interpretation Comments MAGNESIUM (BEAKER) (test code = 2.2 mg/dL 1.6-2.6 627) Smart Energy Specialist ID Pearl DONATO [id number] 06:54:34 Test Item Value Reference Range Interpretation Comments PHOSPHORUS (BEAKER) (test code = 5.1 mg/dL 2.3-4.7 H 604) Smart Energy Specialist ID Pearl DONATO [id number] 06:13:23 Test Item Value Reference Range Interpretation Comments PARTIAL THROMBOPLASTIN TIME 47.6 seconds 22.5-36.0 H (BEAKER) (test code = 760) CBC W/PLT COUNT & AUTO [id number] 06:11:18 Test Item Value Reference Range Interpretation Comments WHITE BLOOD CELL COUNT (BEAKER) 10.3 K/ L 3.5-10.5 (test code = 775) RED BLOOD CELL COUNT (BEAKER) 2.57 M/ L 4.63-6.08 L (test code = 761) HEMOGLOBIN (BEAKER) (test code = 7.6 GM/DL 13.7-17.5 L 410) HEMATOCRIT (BEAKER) (test code = 24.1 % 40.1-51.0 L 411) MEAN CORPUSCULAR VOLUME (BEAKER) 94 fL 79-92 H (test code = 753) MEAN CORPUSCULAR HEMOGLOBIN 29.6 pg 25.7-32.2 (BEAKER) (test code = 751) MEAN CORPUSCULAR HEMOGLOBIN CONC 31.5 GM/DL 32.3-36.5 L (BEAKER) (test code = 752) RED CELL DISTRIBUTION WIDTH 13.0 % 11.6-14.4 (BEAKER) (test code = 412) PLATELET COUNT (BEAKER) (test 290 K/CU MM 150-450 code = 756) MEAN PLATELET VOLUME (BEAKER) 8.6 fL 9.4-12.4 L (test code = 754) NUCLEATED RED BLOOD CELLS 0 /100 WBC 0-0 (BEAKER) (test code = 413) NEUTROPHILS RELATIVE PERCENT 77 % (BEAKER) (test code = 429) LYMPHOCYTES RELATIVE PERCENT 7 % (BEAKER) (test code = 430) MONOCYTES RELATIVE PERCENT 8 % (BEAKER) (test code = 431) EOSINOPHILS RELATIVE PERCENT 6 % (BEAKER) (test code = 432) BASOPHILS RELATIVE PERCENT 0 % (BEAKER) (test code = 437) NEUTROPHILS ABSOLUTE COUNT 7.93 K/ L 1.78-5.38 H (BEAKER) (test code = 670) LYMPHOCYTES ABSOLUTE COUNT 0.75 K/ L 1.32-3.57 L (BEAKER) (test code = 414) MONOCYTES ABSOLUTE COUNT (BEAKER) 0.85 K/ L 0.30-0.82 H (test code = 415) EOSINOPHILS ABSOLUTE COUNT 0.64 K/ L 0.04-0.54 H (BEAKER) (test code = 416) BASOPHILS ABSOLUTE COUNT (BEAKER) 0.03 K/ L 0.01-0.08 (test code = 417) IMMATURE GRANULOCYTES-RELATIVE 1.40 % 0.00-1.00 H PERCENT (BEAKER) (test code = 2801) CALCIUM, [id number] 05:38:11 Test Item Value Reference Range Interpretation Comments CALCIUM IONIZED (BEAKER) (test 1.07 mmol/L 1.12-1.27 L code = 698) PH, BLOOD (BEAKER) (test code = 7.38 1810) BASIC METABOLIC [id number] 00:29:27 Test Item Value Reference Range Interpretation Comments SODIUM (BEAKER) 134 meq/L 136-145 L (test code = 381) POTASSIUM 4.5 meq/L 3.5-5.1 (BEAKER) (test code = 379) CHLORIDE (BEAKER) 100 meq/L 98-107 (test code = 382) CO2 (BEAKER) 24 meq/L 22-29 (test code = 355) BLOOD UREA 45 mg/dL 7-21 H NITROGEN (BEAKER) (test code = 354) CREATININE 5.52 mg/dL 0.57-1.25 H (BEAKER) (test code = 358) GLUCOSE RANDOM 103 mg/dL 70-105 (BEAKER) (test code = 652) CALCIUM (BEAKER) 8.3 mg/dL 8.4-10.2 L (test code = 697) EGFR (BEAKER) 10 Interpretatio n of eGFR (test code = [...] not appl icable for dialysis patien ts Smart Energy Specialist ID - [id number] 23:05:39 Test Item Value Reference Range Interpretation Comments PARTIAL THROMBOPLASTIN TIME 41.1 seconds 22.5-36.0 H (BEAKER) (test code = 760) BASIC METABOLIC [id number] 16:55:05 Test Item Value Reference Range Interpretation Comments SODIUM (BEAKER) 136 meq/L 136-145 (test code = 381) POTASSIUM 4.9 meq/L 3.5-5.1 (BEAKER) (test code = 379) CHLORIDE (BEAKER) 101 meq/L 98-107 (test code = 382) CO2 (BEAKER) 25 meq/L 22-29 (test code = 355) BLOOD UREA 40 mg/dL 7-21 H NITROGEN (BEAKER) (test code = 354) CREATININE 5.15 mg/dL 0.57-1.25 H (BEAKER) (test code = 358) GLUCOSE RANDOM 102 mg/dL 70-105 (BEAKER) (test code = 652) CALCIUM (BEAKER) 8.7 mg/dL 8.4-10.2 (test code = 697) EGFR (BEAKER) 11 Interpretatio n of eGFR (test code = [...] not appl icable for dialysis patien ts Smart Energy Specialist ID - [id number] 16:45:35 Test Item Value Reference Range Interpretation Comments PARTIAL THROMBOPLASTIN TIME 51.5 seconds 22.5-36.0 H (BEAKER) (test code = 760) CBC W/PLT COUNT & AUTO [id number] 06:34:49 Test Item Value Reference Range Interpretation Comments WHITE BLOOD CELL COUNT (BEAKER) 10.1 K/ L 3.5-10.5 (test code = 775) RED BLOOD CELL COUNT (BEAKER) 2.56 M/ L 4.63-6.08 L (test code = 761) HEMOGLOBIN (BEAKER) (test code = 7.6 GM/DL 13.7-17.5 L 410) HEMATOCRIT (BEAKER) (test code = 23.9 % 40.1-51.0 L 411) MEAN CORPUSCULAR VOLUME (BEAKER) 93 fL 79-92 H (test code = 753) MEAN CORPUSCULAR HEMOGLOBIN 29.7 pg 25.7-32.2 (BEAKER) (test code = 751) MEAN CORPUSCULAR HEMOGLOBIN CONC 31.8 GM/DL 32.3-36.5 L (BEAKER) (test code = 752) RED CELL DISTRIBUTION WIDTH 13.1 % 11.6-14.4 (BEAKER) (test code = 412) PLATELET COUNT (BEAKER) (test 271 K/CU MM 150-450 code = 756) MEAN PLATELET VOLUME (BEAKER) 8.8 fL 9.4-12.4 L (test code = 754) NUCLEATED RED BLOOD CELLS 0 /100 WBC 0-0 (BEAKER) (test code = 413) NEUTROPHILS RELATIVE PERCENT 76 % (BEAKER) (test code = 429) LYMPHOCYTES RELATIVE PERCENT 8 % (BEAKER) (test code = 430) MONOCYTES RELATIVE PERCENT 9 % (BEAKER) (test code = 431) EOSINOPHILS RELATIVE PERCENT 6 % (BEAKER) (test code = 432) BASOPHILS RELATIVE PERCENT 0 % (BEAKER) (test code = 437) NEUTROPHILS ABSOLUTE COUNT 7.68 K/ L 1.78-5.38 H (BEAKER) (test code = 670) LYMPHOCYTES ABSOLUTE COUNT 0.76 K/ L 1.32-3.57 L (BEAKER) (test code = 414) MONOCYTES ABSOLUTE COUNT (BEAKER) 0.88 K/ L 0.30-0.82 H (test code = 415) EOSINOPHILS ABSOLUTE COUNT 0.61 K/ L 0.04-0.54 H (BEAKER) (test code = 416) BASOPHILS ABSOLUTE COUNT (BEAKER) 0.04 K/ L 0.01-0.08 (test code = 417) IMMATURE GRANULOCYTES-RELATIVE 1.00 % 0.00-1.00 PERCENT (BEAKER) (test code = 2801) BASIC METABOLIC [id number] 06:17:42 Test Item Value Reference Range Interpretation Comments SODIUM (BEAKER) 135 meq/L 136-145 L (test code = 381) POTASSIUM 4.2 meq/L 3.5-5.1 (BEAKER) (test code = 379) CHLORIDE (BEAKER) 100 meq/L 98-107 (test code = 382) CO2 (BEAKER) 25 meq/L 22-29 (test code = 355) BLOOD UREA 36 mg/dL 7-21 H NITROGEN (BEAKER) (test code = 354) CREATININE 4.82 mg/dL 0.57-1.25 H (BEAKER) (test code = 358) GLUCOSE RANDOM 112 mg/dL 70-105 H (BEAKER) (test code = 652) CALCIUM (BEAKER) 8.5 mg/dL 8.4-10.2 (test code = 697) EGFR (BEAKER) 12 Interpretatio n of eGFR (test code = mL/min/1.73 values Stage De scription 1092) sq m Result G1 Miguel l or high >=90 G2 Mildly decreased 60-89 G3a Mildl y to moderately 45-5 9 G3b Moderately to s everely 30-44 G4 Severl y decreased 15-29 G5 Kidney failure <15Reported eGF R is based on the CKD-EPI 1 equation that d oes not use a race coefficientEsti mated GFR is not as accur ate as Creatinine Mercedes fisher in predicting glom erular filtration rate . Estimated GFR is not appl icable for dialysis patien ts Smart Energy Specialist ID - [id number] 06:15:28 Test Item Value Reference Range Interpretation Comments MAGNESIUM (BEAKER) (test code = 2.0 mg/dL 1.6-2.6 627) Smart Energy Specialist ID - [id number] 06:15:28 Test Item Value Reference Range Interpretation Comments PHOSPHORUS (BEAKER) (test code = 4.8 mg/dL 2.3-4.7 H 604) Smart Energy Specialist ID - [id number] 06:00:03 Test Item Value Reference Range Interpretation Comments PARTIAL THROMBOPLASTIN TIME 90.7 seconds 22.5-36.0 H (BEAKER) (test code = 760) CALCIUM, [id number] 05:32:23 Test Item Value Reference Range Interpretation Comments CALCIUM IONIZED (BEAKER) (test 1.05 mmol/L 1.12-1.27 L code = 698) PH, BLOOD (BEAKER) (test code = 7.39 1810) BASIC METABOLIC [id number] 22:50:13 Test Item Value Reference Range Interpretation Comments SODIUM (BEAKER) 136 meq/L 136-145 (test code = 381) POTASSIUM 4.2 meq/L 3.5-5.1 (BEAKER) (test code = 379) CHLORIDE (BEAKER) 100 meq/L 98-107 (test code = 382) CO2 (BEAKER) 25 meq/L 22-29 (test code = 355) BLOOD UREA 35 mg/dL 7-21 H NITROGEN (BEAKER) (test code = 354) CREATININE 4.64 mg/dL 0.57-1.25 H (BEAKER) (test code = 358) GLUCOSE RANDOM 131 mg/dL 70-105 H (BEAKER) (test code = 652) CALCIUM (BEAKER) 8.4 mg/dL 8.4-10.2 (test code = 697) EGFR [...] not appl icable for dialysis patien ts Smart Energy Specialist ID - [id number] 22:48:30 Test Item Value Reference Range Interpretation Comments PARTIAL THROMBOPLASTIN TIME 56.4 seconds 22.5-36.0 H (BEAKER) (test code = 760) BASIC METABOLIC [id number] 16:02:02 Test Item Value Reference Range Interpretation Comments SODIUM (BEAKER) 139 meq/L 136-145 (test code = 381) POTASSIUM 4.2 meq/L 3.5-5.1 (BEAKER) (test code = 379) CHLORIDE (BEAKER) 102 meq/L 98-107 (test code = 382) CO2 (BEAKER) 24 meq/L 22-29 (test code = 355) BLOOD UREA 29 mg/dL 7-21 H NITROGEN (BEAKER) (test code = 354) CREATININE 4.62 mg/dL 0.57-1.25 H (BEAKER) (test code = 358) GLUCOSE RANDOM 158 mg/dL 70-105 H (BEAKER) (test code = [...] not appl icable for dialysis patien ts Smart Energy Specialist ID - [id number] 15:46:17 Test Item Value Reference Range Interpretation Comments PARTIAL THROMBOPLASTIN TIME 54.2 seconds 22.5-36.0 H (BEAKER) (test code = 760) [id number] 08:26:27 Test Item Value Reference Range Interpretation Comments PARTIAL THROMBOPLASTIN TIME 111.9 seconds 22.5-36.0 H (BEAKER) (test code = 760) BASIC METABOLIC [id number] 08:20:06 Test Item Value Reference Range Interpretation Comments SODIUM (BEAKER) 140 meq/L 136-145 (test code = 381) POTASSIUM 4.2 meq/L 3.5-5.1 (BEAKER) (test code = 379) CHLORIDE (BEAKER) 102 meq/L 98-107 (test code = 382) CO2 (BEAKER) 27 meq/L 22-29 (test code = 355) BLOOD UREA 24 mg/dL 7-21 H NITROGEN (BEAKER) (test code = 354) CREATININE 4.12 mg/dL 0.57-1.25 H (BEAKER) (test code = 358) GLUCOSE RANDOM 123 mg/dL 70-105 H (BEAKER) (test code = 652) CALCIUM (BEAKER) 8.7 mg/dL 8.4-10.2 (test code = 697) EGFR [...] not appl icable for dialysis patien ts Smart Energy Specialist ID - KRYSTAL, TIBC, % SAT. (WITHOUT FERRITIN)2022-08-19 03:18:38 Test Item Value Reference Range Interpretation Comments IRON (BEAKER) (test code = 547) 72.0 ug/dL 40.0-160.0 TOTAL IRON BINDING CAPACITY 193 ug/dL 250-450 L (BEAKER) (test code = 769) IRON % SATURATION (2) (BEAKER) 37 % 20-55 (test code = 2590) Smart Energy Specialist ID - [id number] 03:11:35 Test Item Value Reference Range Interpretation Comments MAGNESIUM (BEAKER) (test code = 2.0 mg/dL 1.6-2.6 627) Smart Energy Specialist ID - KEIKO [id number] 03:11:35 Test Item Value Reference Range Interpretation Comments PHOSPHORUS (BEAKER) (test code = 3.9 mg/dL 2.3-4.7 604) Smart Energy Specialist ID - KEIKO BCBC W/PLT COUNT & AUTO [id number] 02:44:17 Test Item Value Reference Range Interpretation Comments WHITE BLOOD CELL COUNT (BEAKER) 10.3 K/ L 3.5-10.5 (test code = 775) RED BLOOD CELL COUNT (BEAKER) 2.60 M/ L 4.63-6.08 L (test code = 761) HEMOGLOBIN (BEAKER) (test code = 7.8 GM/DL 13.7-17.5 L 410) HEMATOCRIT (BEAKER) (test code = 24.5 % 40.1-51.0 L 411) MEAN CORPUSCULAR VOLUME (BEAKER) 94 fL 79-92 H (test code = 753) MEAN CORPUSCULAR HEMOGLOBIN 30.0 pg 25.7-32.2 (BEAKER) (test code = 751) MEAN CORPUSCULAR HEMOGLOBIN CONC 31.8 GM/DL 32.3-36.5 L (BEAKER) (test code = 752) RED CELL DISTRIBUTION WIDTH 13.1 % 11.6-14.4 (BEAKER) (test code = 412) PLATELET COUNT (BEAKER) (test 264 K/CU MM 150-450 code = 756) MEAN PLATELET VOLUME (BEAKER) 8.5 fL 9.4-12.4 L (test code = 754) NUCLEATED RED BLOOD CELLS 0 /100 WBC 0-0 (BEAKER) (test code = 413) NEUTROPHILS RELATIVE PERCENT 78 % (BEAKER) (test code = 429) LYMPHOCYTES RELATIVE PERCENT 8 % (BEAKER) (test code = 430) MONOCYTES RELATIVE PERCENT 9 % (BEAKER) (test code = 431) EOSINOPHILS RELATIVE PERCENT 5 % (BEAKER) (test code = 432) BASOPHILS RELATIVE PERCENT 0 % (BEAKER) (test code = 437) NEUTROPHILS ABSOLUTE COUNT 7.99 K/ L 1.78-5.38 H (BEAKER) (test code = 670) LYMPHOCYTES ABSOLUTE COUNT 0.77 K/ L 1.32-3.57 L (BEAKER) (test code = 414) MONOCYTES ABSOLUTE COUNT (BEAKER) 0.92 K/ L 0.30-0.82 H (test code = 415) EOSINOPHILS ABSOLUTE COUNT 0.48 K/ L 0.04-0.54 (BEAKER) (test code = 416) BASOPHILS ABSOLUTE COUNT (BEAKER) 0.03 K/ L 0.01-0.08 (test code = 417) IMMATURE GRANULOCYTES-RELATIVE 0.80 % 0.00-1.00 PERCENT (BEAKER) (test code = 2801) [id number] 02:43:07 Test Item Value Reference Range Interpretation Comments PARTIAL THROMBOPLASTIN TIME 59.2 seconds 22.5-36.0 H (BEAKER) (test code = 760) CALCIUM, [id number] 02:35:18 Test Item Value Reference Range Interpretation Comments CALCIUM IONIZED (BEAKER) (test 1.08 mmol/L 1.12-1.27 L code = 698) PH, BLOOD (BEAKER) (test code = 7.41 1810) BASIC METABOLIC [id number] 00:57:46 Test Item Value Reference Range Interpretation Comments SODIUM (BEAKER) 140 meq/L 136-145 (test code = 381) POTASSIUM 4.3 meq/L 3.5-5.1 (BEAKER) (test code = 379) CHLORIDE (BEAKER) 102 meq/L 98-107 (test code = 382) CO2 (BEAKER) 25 meq/L 22-29 (test code = 355) BLOOD UREA 21 mg/dL 7-21 NITROGEN (BEAKER) (test code = 354) CREATININE 3.75 mg/dL 0.57-1.25 H (BEAKER) (test code = 358) GLUCOSE RANDOM 126 mg/dL 70-105 H (BEAKER) (test code = 652) CALCIUM (BEAKER) 8.6 mg/dL 8.4-10.2 (test code = 697) EGFR [...] eGF R is based on the CKD-EPI 1 equation that d oes not use a race coefficientEsti mated GFR is not as accur ate as Creatinine Mercedes phillip in predicting glom erular filtration rate . Estimated GFR is not appl icable for dialysis patien ts Smart Energy Specialist ID - [id number] 00:52:06 Test Item Value Reference Range Interpretation Comments PARTIAL THROMBOPLASTIN TIME 148.0 seconds 22.5-36.0 H (BEAKER) (test code = 760) BASIC METABOLIC [id number] 19:11:33 Test Item Value Reference Range Interpretation Comments SODIUM (BEAKER) 140 meq/L 136-145 (test code = 381) POTASSIUM 4.1 meq/L 3.5-5.1 (BEAKER) (test code = 379) CHLORIDE (BEAKER) 101 meq/L 98-107 (test code = 382) CO2 (BEAKER) 29 meq/L 22-29 (test code = 355) BLOOD UREA 17 mg/dL 7-21 NITROGEN (BEAKER) (test code = 354) CREATININE 3.18 mg/dL 0.57-1.25 H (BEAKER) (test code = 358) GLUCOSE RANDOM 142 mg/dL 70-105 H (BEAKER) (test code = 652) CALCIUM (BEAKER) 9.1 mg/dL 8.4-10.2 (test code = 697) EGFR (BEAKER) 20 Interpretatio n of eGFR (test code = mL/min/1.73 values Stage D escription 1092) sq m Result G1 Miguel l or high >=90 G2 Mildly decreased 60-89 G3a Mildl y to moderately 45-5 9 G3b Moderately to s everely 30-44 G4 Severl y decreased 15-29 G5 Kidney failure <15Reported eGF R is based on the CKD-EPI 2021 equation that d oes not use a race coefficientEsti mated GFR is not as accur ate as Creatinine Mercedes ifsher in predicting glom erular filtration rate . Estimated GFR is not appl icable for dialysis patien ts Smart Energy Specialist ID - DBCT CHEST WITHOUT IV [id number] 18:48:38 [facility] [place] : 1945 Sex: MCT Chest without contrastHistory: Chest painComparison: noneTechnique: serial axial imaging was performed without intravenouscontrast as per departmental protocol. Multiplanar images arereconstructed and reviewed when indicated. This CT examination is performed using one or more of the following dosereductiontechniques:Automated exposure control, adjustment of the mA and /or kV according topatient size, and/ or use of iterative reconstruction technique.Findings:No mediastinal lymphadenopathy. No definite hilar enlargement. Normal size heart. No pericardial effusion. Cardiac pacer in place.No thoracic aortic aneurysm. Normal caliber of main pulmonary trunk. Patent central airways. Small bilateral partiallyloculated pleuraleffusions. No pneumothorax is apparent. Small foci of groundglassdensity within theright upper lobe. Bilateral lower lobe dependentconsolidations likely relate to atelectasis or scarring. Lungs areotherwise clear.No significant findings in the partially imaged abdomen. No aggressive osseous lesion.IMPRESSION:Impression:1. Small bilateral partially loculated pleural effusions.2. Bilateral lower lobe dependent consolidations most likely representatelectasis or scarring.3. Nonspecificsmall foci of groundglass density within the right upperlobe could relate to recent infection. Recommend clinical correlation.4. Cardiac pacer in place. Electronically Signed By: Ryan Thompson MD08/18/2022 18:50 CDTWorkstation Name: [id number] 2022-08-18 17:19:45 Test Item Value Reference Range Interpretation Comments PARTIAL THROMBOPLASTIN TIME 43.6 seconds 22.5-36.0 H (BEAKER) (test code = 760) BASIC METABOLIC [id number] 09:51:11 Test Item Value Reference Range Interpretation Comments SODIUM (BEAKER) 137 meq/L 136-145 (test code = 381) POTASSIUM 3.8 meq/L 3.5-5.1 (BEAKER) (test code = 379) CHLORIDE (BEAKER) 98 meq/L 98-107 (test code = 382) CO2 (BEAKER) 26 meq/L 22-29 (test code = 355) BLOOD UREA 41 mg/dL 7-21 H NITROGEN (BEAKER) (test code = 354) CREATININE 5.83 mg/dL 0.57-1.25 H (BEAKER) (test code = 358) GLUCOSE RANDOM 147 mg/dL 70-105 H (BEAKER) (test code = 652) CALCIUM (BEAKER) 8.9 mg/dL 8.4-10.2 (test code = 697) EGFR (BEAKER) 10 Interpretatio n of eGFR (test code = [...] not appl icable for dialysis patien ts Smart Energy Specialist ID - [id number] 09:06:02 Test Item Value Reference Range Interpretation Comments PARTIAL THROMBOPLASTIN TIME 96.2 seconds 22.5-36.0 H (BEAKER) (test code = 760) BASIC METABOLIC [id number] 02:20:38 Test Item Value Reference Range Interpretation Comments SODIUM (BEAKER) 137 meq/L 136-145 (test code = 381) POTASSIUM 4.3 meq/L 3.5-5.1 (BEAKER) (test code = 379) CHLORIDE (BEAKER) 98 meq/L 98-107 (test code = 382) CO2 (BEAKER) 27 meq/L 22-29 (test code = 355) BLOOD UREA 42 mg/dL 7-21 H NITROGEN (BEAKER) (test code = 354) CREATININE 5.61 mg/dL 0.57-1.25 H (BEAKER) (test code = 358) GLUCOSE RANDOM 102 mg/dL 70-105 (BEAKER) (test code = 652) CALCIUM (BEAKER) 8.5 mg/dL 8.4-10.2 (test code = 697) EGFR (BEAKER) 10 Interpretatio n of eGFR (test code = [...] not appl icable for dialysis patien ts Smart [employer] Specialist ID - [id number] 02:09:25 Test Item Value Reference Range Interpretation Comments MAGNESIUM (BEAKER) (test code = 2.2 mg/dL 1.6-2.6 627) Smart Energy Specialist ID - [id number] 02:09:25 Test Item Value Reference Range Interpretation Comments PHOSPHORUS (BEAKER) (test code = 5.0 mg/dL 2.3-4.7 H 604) Smart Energy Specialist ID - ADMINHEPATIC FUNCTION [id number] 02:09:25 Test Item Value Reference Range Interpretation Comments TOTAL PROTEIN (BEAKER) (test code = 7.0 gm/dL 6.0-8.3 770) ALBUMIN (BEAKER) (test code = 1145) 3.6 g/dL 3.5-5.0 BILIRUBIN TOTAL (BEAKER) (test code 0.4 mg/dL 0.2-1.2 = 377) BILIRUBIN DIRECT (BEAKER) (test 0.2 mg/dL 0.1-0.5 code = 706) ALKALINE PHOSPHATASE (BEAKER) (test 79 U/L 40-150 code = 346) AST (SGOT) (BEAKER) (test code = 14 U/L 5-34 353) ALT (SGPT) (BEAKER) (test code = 13 U/L 6-55 347) Smart [employer] Specialist ID - ADMINCALCIUM, [id number] 01:58:56 Test Item Value Reference Range Interpretation Comments CALCIUM IONIZED (BEAKER) (test 1.02 mmol/L 1.12-1.27 L code = 698) PH, BLOOD (BEAKER) (test code = 7.43 1810) CBC W/PLT COUNT & AUTO [id number] 01:52:34 Test Item Value Reference Range Interpretation Comments WHITE BLOOD CELL COUNT (BEAKER) 11.0 K/ L 3.5-10.5 H (test code = 775) RED BLOOD CELL COUNT (BEAKER) 2.69 M/ L 4.63-6.08 L (test code = 761) HEMOGLOBIN (BEAKER) (test code = 8.0 GM/DL 13.7-17.5 L 410) HEMATOCRIT (BEAKER) (test code = 24.7 % 40.1-51.0 L 411) MEAN CORPUSCULAR VOLUME (BEAKER) 92 fL 79-92 (test code = 753) MEAN CORPUSCULAR HEMOGLOBIN 29.7 pg 25.7-32.2 (BEAKER) (test code = 751) MEAN CORPUSCULAR HEMOGLOBIN CONC 32.4 GM/DL 32.3-36.5 (BEAKER) (test code = 752) RED CELL DISTRIBUTION WIDTH 12.9 % 11.6-14.4 (BEAKER) (test code = 412) PLATELET COUNT (BEAKER) (test 277 K/CU MM 150-450 code = 756) MEAN PLATELET VOLUME (BEAKER) 8.5 fL 9.4-12.4 L (test code = 754) NUCLEATED RED BLOOD CELLS 0 /100 WBC 0-0 (BEAKER) (test code = 413) NEUTROPHILS RELATIVE PERCENT 85 % (BEAKER) (test code = 429) LYMPHOCYTES RELATIVE PERCENT 5 % (BEAKER) (test code = 430) MONOCYTES RELATIVE PERCENT 9 % (BEAKER) (test code = 431) EOSINOPHILS RELATIVE PERCENT 1 % (BEAKER) (test code = 432) BASOPHILS RELATIVE PERCENT 0 % (BEAKER) (test code = 437) NEUTROPHILS ABSOLUTE COUNT 9.36 K/ L 1.78-5.38 H (BEAKER) (test code = 670) LYMPHOCYTES ABSOLUTE COUNT 0.52 K/ L 1.32-3.57 L (BEAKER) (test code = 414) MONOCYTES ABSOLUTE COUNT (BEAKER) 0.97 K/ L 0.30-0.82 H (test code = 415) EOSINOPHILS ABSOLUTE COUNT 0.07 K/ L 0.04-0.54 (BEAKER) (test code = 416) BASOPHILS ABSOLUTE COUNT (BEAKER) 0.01 K/ L 0.01-0.08 (test code = 417) IMMATURE GRANULOCYTES-RELATIVE 0.70 % 0.00-1.00 PERCENT (BEAKER) (test code = 2801) [id number] 20:23:04 Test Item Value Reference Range Interpretation Comments ACTIVATED CLOTTING TIME 131 sec : 74 -137 seconds, (BEAKER) (test code = Baseli ne: TESTED AT 441) [facility] [address], [address]: Smart Energy Specialist/Techni joann ID = [id number] for [place] RIAS, PETER [id number] 17:57:31 Test Item Value Reference Range Interpretation Comments ACTIVATED CLOTTING TIME 149 sec : 74 -137 seconds, (BEAKER) (test code = Baseli ne: TESTED AT 441) [facility] [address], [address]: [employer] Specialist/Techni joann ID = [id number] for FO X, [place] BASIC METABOLIC [id number] 16:41:42 Test Item Value Reference Range Interpretation Comments SODIUM (BEAKER) 137 meq/L 136-145 (test code = 381) POTASSIUM 4.4 meq/L 3.5-5.1 (BEAKER) (test code = 379) CHLORIDE (BEAKER) 99 meq/L 98-107 (test code = 382) CO2 (BEAKER) 24 meq/L 22-29 (test code = 355) BLOOD UREA 35 mg/dL 7-21 H NITROGEN (BEAKER) (test code = 354) CREATININE 5.03 mg/dL 0.57-1.25 H (BEAKER) (test code = 358) GLUCOSE RANDOM 148 mg/dL 70-105 H (BEAKER) (test code = 652) CALCIUM (BEAKER) 8.6 mg/dL 8.4-10.2 (test code = 697) EGFR (BEAKER) 11 Interpretatio n of eGFR (test code = [...] not appl icable for dialysis patien ts [employer] Specialist ID - [id number] 16:31:27 Test Item Value Reference Range Interpretation Comments ACTIVATED CLOTTING TIME 143 sec : 74 -137 seconds, (BEAKER) (test code = Baseli ne: TESTED AT 441) [facility] [address], [address]: [employer] Specialist/Techni joann ID = [id number] for FO XFRANKLIN [id number] 15:31:22 Test Item Value Reference Range Interpretation Comments ACTIVATED CLOTTING TIME 155 sec : 74 -137 seconds, (BEAKER) (test code = Baseli ne: TESTED AT 441) [facility] [address], [address]: [employer] Specialist/Techni joann ID = [id number] for Ak ensMarki [id number] 10:50:44 Test Item Value Reference Range Interpretation Comments PARTIAL THROMBOPLASTIN TIME 73.1 seconds 22.5-36.0 H (BEAKER) (test code = 760) LIPID [id number] 09:41:57 Test Item Value Reference Range Interpretation Comments TRIGLYCERIDES (BEAKER) (test code = 117 mg/dL 540) CHOLESTEROL (BEAKER) (test code = 144 mg/dL 631) HDL CHOLESTEROL (BEAKER) (test code 42 mg/dL = 976) LDL CHOLESTEROL CALCULATED (BEAKER) 79 mg/dL (test code = 633) Triglyceride Reference Range: Low Risk <150 Borderline 150-199 High Risk 200- 499 Very High Risk >=500Cholesterol Reference Range: Low Risk <200 Borderline 200-239 High Risk >240HDL Cholesterol Reference Range: Low Risk >=60 High Risk <40LDL Cholesterol Reference Range: Optimal <100 Near Optimal 100-129 Borderline 130-159 High 160-189 Very High >=190 Smart [employer] Specialist ID - MARCOBASIC METABOLIC [id number] 09:25:32 Test Item Value Reference Range Interpretation Comments SODIUM (BEAKER) 139 meq/L 136-145 (test code = 381) POTASSIUM 4.0 meq/L 3.5-5.1 (BEAKER) (test code = 379) CHLORIDE (BEAKER) 98 meq/L 98-107 (test code = 382) CO2 (BEAKER) 27 meq/L 22-29 (test code = 355) BLOOD UREA 31 mg/dL 7-21 H NITROGEN (BEAKER) (test code = 354) CREATININE 4.65 mg/dL 0.57-1.25 H (BEAKER) (test code = 358) GLUCOSE RANDOM 128 mg/dL 70-105 H (BEAKER) (test code = 652) CALCIUM (BEAKER) 8.9 mg/dL 8.4-10.2 (test code = 697) EGFR (BEAKER) 12 Interpretatio n of eGFR (test code = [...] not appl icable for dialysis patien ts [employer] Specialist ID - MARCOHIGH SENSITIVITY TROPONIN [id number] 09:24:12 Test Item Value Reference Range Interpretation Comments HIGH SENSITIVITY TROPONIN I (test 615 pg/ml <=35 HH code = [id number]) [employer] Specialist ID - Kenneth [employer] STAT High Sensitivity Troponin-I results should be used in conjunction with other diagnostic information such as ECG, clinical observations and information, and patientsymptoms to aid in the diagnosis of ME. [id number] 01:51:17 Test Item Value Reference Range Interpretation Comments PARTIAL THROMBOPLASTIN TIME 91.0 seconds 22.5-36.0 H (BEAKER) (test code = 760) BASIC METABOLIC [id number] 01:48:02 Test Item Value Reference Range Interpretation Comments SODIUM (BEAKER) 139 meq/L 136-145 (test code = 381) POTASSIUM 3.9 meq/L 3.5-5.1 (BEAKER) (test code = 379) CHLORIDE (BEAKER) 98 meq/L 98-107 (test code = 382) CO2 (BEAKER) 27 meq/L 22-29 (test code = 355) BLOOD UREA 29 mg/dL 7-21 H NITROGEN (BEAKER) (test code = 354) CREATININE 4.28 mg/dL 0.57-1.25 H (BEAKER) (test code = 358) GLUCOSE RANDOM 109 mg/dL 70-105 H (BEAKER) (test code = [...] 30-44 G4 Severl y decreased 15-29 G5 Kidne y failure <15Reported eGF R is based on the CKD-EPI 2020 equation that d oes not use a race coefficientEsti mated GFR is not as accur ate as Creatinine Mercedes phillip in predicting glom erular filtration rate . Estimated GFR is not appl icable for dialysis patien ts [employer]ist ID - [id number] 01:47:17 Test Item Value Reference Range Interpretation Comments MAGNESIUM (BEAKER) (test code = 2.1 mg/dL 1.6-2.6 627) [employer]ist ID - [id number] 01:47:17 Test Item Value Reference Range Interpretation Comments PHOSPHORUS (BEAKER) (test code = 4.6 mg/dL 2.3-4.7 604) [employer]ist ID - MARCOHEPATIC FUNCTION [id number] 01:47:17 Test Item Value Reference Range Interpretation Comments TOTAL PROTEIN (BEAKER) (test code = 7.1 gm/dL 6.0-8.3 770) ALBUMIN (BEAKER) (test code = 1145) 3.6 g/dL 3.5-5.0 BILIRUBIN TOTAL (BEAKER) (test code 0.5 mg/dL 0.2-1.2 = 377) BILIRUBIN DIRECT (BEAKER) (test 0.2 mg/dL 0.1-0.5 code = 706) ALKALINE PHOSPHATASE (BEAKER) (test 76 U/L 40-150 code = 346) AST (SGOT) (BEAKER) (test code = 21 U/L 5-34 353) ALT (SGPT) (BEAKER) (test code = 15 U/L 6-55 347) [employer]ist ID - MARCOCBC W/PLT COUNT & AUTO [id number] 01:40:55 Test Item Value Reference Range Interpretation Comments WHITE BLOOD CELL COUNT (BEAKER) 9.1 K/ L 3.5-10.5 (test code = 775) RED BLOOD CELL COUNT (BEAKER) 2.86 M/ L 4.63-6.08 L (test code = 761) HEMOGLOBIN (BEAKER) (test code = 8.5 GM/DL 13.7-17.5 L 410) HEMATOCRIT (BEAKER) (test code = 26.1 % 40.1-51.0 L 411) MEAN CORPUSCULAR VOLUME (BEAKER) 91 fL 79-92 (test code = 753) MEAN CORPUSCULAR HEMOGLOBIN 29.7 pg 25.7-32.2 (BEAKER) (test code = 751) MEAN CORPUSCULAR HEMOGLOBIN CONC 32.6 GM/DL 32.3-36.5 (BEAKER) (test code = 752) RED CELL DISTRIBUTION WIDTH 13.0 % 11.6-14.4 (BEAKER) (test code = 412) PLATELET COUNT (BEAKER) (test 275 K/CU MM 150-450 code = 756) MEAN PLATELET VOLUME (BEAKER) 8.6 fL 9.4-12.4 L (test code = 754) NUCLEATED RED BLOOD CELLS 0 /100 WBC 0-0 (BEAKER) (test code = 413) NEUTROPHILS RELATIVE PERCENT 78 % (BEAKER) (test code = 429) LYMPHOCYTES RELATIVE PERCENT 7 % (BEAKER) (test code = 430) MONOCYTES RELATIVE PERCENT 9 % (BEAKER) (test code = 431) EOSINOPHILS RELATIVE PERCENT 5 % (BEAKER) (test code = 432) BASOPHILS RELATIVE PERCENT 0 % (BEAKER) (test code = 437) NEUTROPHILS ABSOLUTE COUNT 7.08 K/ L 1.78-5.38 H (BEAKER) (test code = 670) LYMPHOCYTES ABSOLUTE COUNT 0.67 K/ L 1.32-3.57 L (BEAKER) (test code = 414) MONOCYTES ABSOLUTE COUNT (BEAKER) 0.84 K/ L 0.30-0.82 H (test code = 415) EOSINOPHILS ABSOLUTE COUNT 0.41 K/ L 0.04-0.54 (BEAKER) (test code = 416) BASOPHILS ABSOLUTE COUNT (BEAKER) 0.04 K/ L 0.01-0.08 (test code = 417) IMMATURE GRANULOCYTES-RELATIVE 1.00 % 0.00-1.00 PERCENT (BEAKER) (test code = 2801) CALCIUM, [id number] 01:30:26 Test Item Value Reference Range Interpretation Comments CALCIUM IONIZED (BEAKER) (test 1.02 mmol/L 1.12-1.27 L code = 698) PH, BLOOD (BEAKER) (test code = 7.45 1810) BASIC METABOLIC [id number] 18:48:51 Test Item Value Reference Range Interpretation Comments SODIUM (BEAKER) 139 meq/L 136-145 (test code = 381) POTASSIUM 3.8 meq/L 3.5-5.1 Specimen slight ly (BEAKER) (test hemolyzed code = 379) CHLORIDE (BEAKER) 99 meq/L 98-107 (test code = 382) CO2 (BEAKER) 27 meq/L 22-29 (test code = 355) BLOOD UREA 23 mg/dL 7-21 H NITROGEN (BEAKER) (test code = 354) CREATININE 3.23 mg/dL 0.57-1.25 H Specimen slight ly (BEAKER) (test hemolyzed code = 358) GLUCOSE RANDOM 99 mg/dL 70-105 (BEAKER) (test code = 652) CALCIUM (BEAKER) 9.1 mg/dL 8.4-10.2 (test code = 697) EGFR [...] not appl icable for dialysis patien ts [employer] ID - [id number] 14:50:08 Test Item Value Reference Range Interpretation Comments PARTIAL THROMBOPLASTIN TIME 59.8 seconds 22.5-36.0 H (BEAKER) (test code = 760) [id number] 06:54:20 Test Item Value Reference Range Interpretation Comments PARTIAL THROMBOPLASTIN TIME 64.6 seconds 22.5-36.0 H (BEAKER) (test code = 760) CBC W/PLT COUNT & AUTO [id number] 03:48:28 Test Item Value Reference Range Interpretation Comments WHITE BLOOD CELL COUNT (BEAKER) 10.5 K/ L 3.5-10.5 (test code = 775) RED BLOOD CELL COUNT (BEAKER) 2.88 M/ L 4.63-6.08 L (test code = 761) HEMOGLOBIN (BEAKER) (test code = 8.5 GM/DL 13.7-17.5 L 410) HEMATOCRIT (BEAKER) (test code = 26.6 % 40.1-51.0 L 411) MEAN CORPUSCULAR VOLUME (BEAKER) 92 fL 79-92 (test code = 753) MEAN CORPUSCULAR HEMOGLOBIN 29.5 pg 25.7-32.2 (BEAKER) (test code = 751) MEAN CORPUSCULAR HEMOGLOBIN CONC 32.0 GM/DL 32.3-36.5 L (BEAKER) (test code = 752) RED CELL DISTRIBUTION WIDTH 12.9 % 11.6-14.4 (BEAKER) (test code = 412) PLATELET COUNT (BEAKER) (test 313 K/CU MM 150-450 code = 756) MEAN PLATELET VOLUME (BEAKER) 8.9 fL 9.4-12.4 L (test code = 754) NUCLEATED RED BLOOD CELLS 0 /100 WBC 0-0 (BEAKER) (test code = 413) NEUTROPHILS RELATIVE PERCENT 84 % (BEAKER) (test code = 429) LYMPHOCYTES RELATIVE PERCENT 6 % (BEAKER) (test code = 430) MONOCYTES RELATIVE PERCENT 8 % (BEAKER) (test code = 431) EOSINOPHILS RELATIVE PERCENT 1 % (BEAKER) (test code = 432) BASOPHILS RELATIVE PERCENT 0 % (BEAKER) (test code = 437) NEUTROPHILS ABSOLUTE COUNT 8.86 K/ L 1.78-5.38 H (BEAKER) (test code = 670) LYMPHOCYTES ABSOLUTE COUNT 0.60 K/ L 1.32-3.57 L (BEAKER) (test code = 414) MONOCYTES ABSOLUTE COUNT (BEAKER) 0.87 K/ L 0.30-0.82 H (test code = 415) EOSINOPHILS ABSOLUTE COUNT 0.09 K/ L 0.04-0.54 (BEAKER) (test code = 416) BASOPHILS ABSOLUTE COUNT (BEAKER) 0.04 K/ L 0.01-0.08 (test code = 417) IMMATURE GRANULOCYTES-RELATIVE 0.70 % 0.00-1.00 PERCENT (BEAKER) (test code = 2801) BASIC METABOLIC [id number] 03:41:45 Test Item Value Reference Range Interpretation Comments SODIUM (BEAKER) 136 meq/L 136-145 (test code = 381) POTASSIUM 4.9 meq/L 3.5-5.1 (BEAKER) (test code = 379) CHLORIDE (BEAKER) 102 meq/L 98-107 (test code = 382) CO2 (BEAKER) 22 meq/L 22-29 (test code = 355) BLOOD UREA 57 mg/dL 7-21 H NITROGEN (BEAKER) (test code = 354) CREATININE 6.72 mg/dL 0.57-1.25 H (BEAKER) (test code = 358) GLUCOSE RANDOM 112 mg/dL 70-105 H (BEAKER) (test code = 652) CALCIUM (BEAKER) 8.3 mg/dL 8.4-10.2 L (test code = 697) EGFR (BEAKER) 8 Interpretatio n of eGFR (test code = [...] not appl icable for dialysis patien ts [employer]ist ID - DBCALCIUM, [id number] 03:35:24 Test Item Value Reference Range Interpretation Comments CALCIUM IONIZED (BEAKER) (test 1.06 mmol/L 1.12-1.27 L code = 698) PH, BLOOD (BEAKER) (test code = 7.35 1810) [id number] 03:35:00 Test Item Value Reference Range Interpretation Comments PHOSPHORUS (BEAKER) (test code = 5.6 mg/dL 2.3-4.7 H 604) [employer]ist ID - DBHEPATIC FUNCTION [id number] 03:35:00 Test Item Value Reference Range Interpretation Comments TOTAL PROTEIN (BEAKER) (test code = 7.0 gm/dL 6.0-8.3 770) ALBUMIN (BEAKER) (test code = 1145) 3.6 g/dL 3.5-5.0 BILIRUBIN TOTAL (BEAKER) (test code 0.5 mg/dL 0.2-1.2 = 377) BILIRUBIN DIRECT (BEAKER) (test 0.2 mg/dL 0.1-0.5 code = 706) ALKALINE PHOSPHATASE (BEAKER) (test 73 U/L 40-150 code = 346) AST (SGOT) (BEAKER) (test code = 16 U/L 5-34 353) ALT (SGPT) (BEAKER) (test code = 12 U/L 6-55 347) [employer]ist ID - [id number] 03:34:59 Test Item Value Reference Range Interpretation Comments MAGNESIUM (BEAKER) (test code = 2.4 mg/dL 1.6-2.6 627) [employer]ist ID - [id number] 23:49:30 Test Item Value Reference Range Interpretation Comments PARTIAL THROMBOPLASTIN TIME 42.3 seconds 22.5-36.0 H (BEAKER) (test code = 760) POCT-GLUCOSE [id number] 21:35:11 Test Item Value Reference Range Interpretation Comments POC-GLUCOSE METER 178 mg/dL 70-110 H : TESTED [facility] (BEAKER) (test code = JOSE VALLADARES MS, 1538) [address]: [employer] Specialist/Techni joann ID = [id number] for Ruth Regan HIGH SENSITIVITY TROPONIN [id number] 18:50:27 Test Item Value Reference Range Interpretation Comments HIGH SENSITIVITY TROPONIN I (test 802 pg/ml <=35 HH code = 4750613) [employer] Specialist ID - DBThe [employer] ASSEMBLER STAT High Sensitivity Troponin-I results should be used in conjunctionwith other diagnostic information such as ECG, clinical observations and information, and patient symptoms to aid in the diagnosis of ME.BASIC METABOLIC [id number] 18:39:48 Test Item Value Reference Range Interpretation Comments SODIUM (BEAKER) 136 meq/L 136-145 (test code = 381) POTASSIUM 5.6 meq/L 3.5-5.1 H (BEAKER) (test code = 379) CHLORIDE (BEAKER) 103 meq/L 98-107 (test code = 382) CO2 (BEAKER) 20 meq/L 22-29 L (test code = 355) BLOOD UREA 50 mg/dL 7-21 H NITROGEN (BEAKER) (test code = 354) CREATININE 6.55 mg/dL 0.57-1.25 H (BEAKER) (test code = 358) GLUCOSE RANDOM 132 mg/dL 70-105 H (BEAKER) (test code = 652) CALCIUM (BEAKER) 9.0 mg/dL 8.4-10.2 (test code = 697) EGFR (BEAKER) 8 Interpretatio n of eGFR (test code = [...] not appl icable for dialysis patien ts [employer]ist ID - DBHEPATITIS B SURFACE [id number] 16:07:51 Test Item Value Reference Range Interpretation Comments HEPATITIS B SURFACE ANTIGEN (2) Nonreactive Nonreactive (BEAKER) (test code = 2585) Specimen is considered negative for HBsAg.[id number] 15:45:12 Test Item Value Reference Range Interpretation Comments PARTIAL THROMBOPLASTIN TIME 57.8 seconds 22.5-36.0 H (BEAKER) (test code = 760) CBC W/PLT COUNT & AUTO [id number] 15:33:45 Test Item Value Reference Range Interpretation Comments WHITE BLOOD CELL COUNT (BEAKER) 12.2 K/ L 3.5-10.5 H (test code = 775) RED BLOOD CELL COUNT (BEAKER) 3.16 M/ L 4.63-6.08 L (test code = 761) HEMOGLOBIN (BEAKER) (test code = 9.5 GM/DL 13.7-17.5 L 410) HEMATOCRIT (BEAKER) (test code = 29.3 % 40.1-51.0 L 411) MEAN CORPUSCULAR VOLUME (BEAKER) 93 fL 79-92 H (test code = 753) MEAN CORPUSCULAR HEMOGLOBIN 30.1 pg 25.7-32.2 (BEAKER) (test code = 751) MEAN CORPUSCULAR HEMOGLOBIN CONC 32.4 GM/DL 32.3-36.5 (BEAKER) (test code = 752) RED CELL DISTRIBUTION WIDTH 13.2 % 11.6-14.4 (BEAKER) (test code = 412) PLATELET COUNT (BEAKER) (test 309 K/CU MM 150-450 code = 756) MEAN PLATELET VOLUME (BEAKER) 8.8 fL 9.4-12.4 L (test code = 754) NUCLEATED RED BLOOD CELLS 0 /100 WBC 0-0 (BEAKER) (test code = 413) NEUTROPHILS RELATIVE PERCENT 94 % (BEAKER) (test code = 429) LYMPHOCYTES RELATIVE PERCENT 2 % (BEAKER) (test code = 430) MONOCYTES RELATIVE PERCENT 3 % (BEAKER) (test code = 431) EOSINOPHILS RELATIVE PERCENT 1 % (BEAKER) (test code = 432) BASOPHILS RELATIVE PERCENT 0 % (BEAKER) (test code = 437) NEUTROPHILS ABSOLUTE COUNT 11.44 K/ L 1.78-5.38 H (BEAKER) (test code = 670) LYMPHOCYTES ABSOLUTE COUNT 0.19 K/ L 1.32-3.57 L (BEAKER) (test code = 414) MONOCYTES ABSOLUTE COUNT (BEAKER) 0.34 K/ L 0.30-0.82 (test code = 415) EOSINOPHILS ABSOLUTE COUNT 0.08 K/ L 0.04-0.54 (BEAKER) (test code = 416) BASOPHILS ABSOLUTE COUNT (BEAKER) 0.02 K/ L 0.01-0.08 (test code = 417) IMMATURE GRANULOCYTES-RELATIVE 0.90 % 0.00-1.00 PERCENT (BEAKER) (test code = 2801) HIGH SENSITIVITY TROPONIN [id number] 07:46:55 Test Item Value Reference Range Interpretation Comments HIGH SENSITIVITY TROPONIN I (test 1069 pg/ml <=35 HH code = [id number]) [employer]ist ID - ADMINThe [employer]ER STAT High Sensitivity Troponin-I results should be used in conjunction with other diagnostic information such as ECG, clinical observations and information, and patientsymptoms to aid in the diagnosis of ME. [id number] 07:41:25 Test Item Value Reference Range Interpretation Comments D-DIMER QUANTITATIVE (BEAKER) 3.05 MG/L FEU <0.50 H (test code = 671) Intended Use: The D-Dimer Assay can be used to aid in the diagnosis of Deep Vein Thrombosis (DVT) and Pulmonary Embolism Disease (PED).In patients with low pre- test probability, various studies concerning STA Liatest D-dimer test have reported that with a cutoff value of 0.50 MG/L FEU, the Negative Predictive Value (NPV) regarding the exclusion of thrombosis is within 95-100% range.APTT 2022-08-15 07:39:27 Test Item Value Reference Range Interpretation Comments PARTIAL THROMBOPLASTIN TIME 39.3 seconds 22.5-36.0 H (BEAKER) (test code = 760) BASIC METABOLIC [id number] 05:15:05 Test Item Value Reference Range Interpretation Comments SODIUM (BEAKER) 137 meq/L 136-145 (test code = 381) POTASSIUM 5.1 meq/L 3.5-5.1 Specimen slight ly (BEAKER) (test hemolyzed code = 379) CHLORIDE (BEAKER) 103 meq/L 98-107 (test code = 382) CO2 (BEAKER) 21 meq/L 22-29 L (test code = 355) BLOOD UREA 47 mg/dL 7-21 H NITROGEN (BEAKER) (test code = 354) CREATININE 6.39 mg/dL 0.57-1.25 H Specimen slight ly (BEAKER) (test hemolyzed code = 358) GLUCOSE RANDOM 87 mg/dL 70-105 (BEAKER) (test code = 652) CALCIUM (BEAKER) 8.5 mg/dL 8.4-10.2 (test code = 697) EGFR (BEAKER) 9 Interpretatio n of eGFR (test code = [...] not appl icable for dialysis patien ts [employer]ist ID - ADMINHIGH SENSITIVITY TROPONIN [id number] 05:11:58 Test Item Value Reference Range Interpretation Comments HIGH SENSITIVITY TROPONIN I (test 1193 pg/ml <=35 HH code = [id number]) [employer]ist ID - ADMINThe [employer] AS[employer]ER STAT High Sensitivity Troponin-I results should be used in conjunction with other diagnostic information such as ECG, clinical observations and information, and patientsymptoms to aid in the diagnosis of ME. [id number] 05:09:52 Test Item Value Reference Range Interpretation Comments MAGNESIUM (BEAKER) 2.5 mg/dL 1.6-2.6 Specimen slightly (test code = 627) hemolyzed [employer]ist ID - [id number] 05:09:52 Test Item Value Reference Range Interpretation Comments PHOSPHORUS (BEAKER) 5.7 mg/dL 2.3-4.7 H Specimen slightly (test code = 604) hemolyzed [employer]ist ID - ADMINXR CHEST 1 VIEW PORTABLE / [id number] 05:01:07 [facility] GROSSM[facility] [place] : 1945 Sex: MINDICATION: hypoxiaCOMPARISON: 02/12/2022TECHNIQUE: Single frontal view of the chest.IMPRESSION:Lungs and pleura: There is central venous congestion similar to priorwith right basilar atelectasis. No focal consolidation. No effusion.Heart and mediastinum: Stable cardiomediastinal silhouette withcardiomegaly andright subclavian dual-lead pacemakerOsseous structures: No acute abnormality.Other: None.Electronically Signed By: Clint Leggett08/15/2022 05:03 CDTWorkstation Name: [id number] W/PLT COUNT & AUTO [id number] 04:45:51 Test Item Value Reference Range Interpretation Comments WHITE BLOOD CELL COUNT (BEAKER) 10.6 K/ L 3.5-10.5 H (test code = 775) RED BLOOD CELL COUNT (BEAKER) 3.21 M/ L 4.63-6.08 L (test code = 761) HEMOGLOBIN (BEAKER) (test code = 9.7 GM/DL 13.7-17.5 L 410) HEMATOCRIT (BEAKER) (test code = 29.7 % 40.1-51.0 L 411) MEAN CORPUSCULAR VOLUME (BEAKER) 93 fL 79-92 H (test code = 753) MEAN CORPUSCULAR HEMOGLOBIN 30.2 pg 25.7-32.2 (BEAKER) (test code = 751) MEAN CORPUSCULAR HEMOGLOBIN CONC 32.7 GM/DL 32.3-36.5 (BEAKER) (test code = 752) RED CELL DISTRIBUTION WIDTH 12.9 % 11.6-14.4 (BEAKER) (test code = 412) PLATELET COUNT (BEAKER) (test 327 K/CU MM 150-450 code = 756) MEAN PLATELET VOLUME (BEAKER) 8.3 fL 9.4-12.4 L (test code = 754) NUCLEATED RED BLOOD CELLS 0 /100 WBC 0-0 (BEAKER) (test code = 413) NEUTROPHILS RELATIVE PERCENT 81 % (BEAKER) (test code = 429) LYMPHOCYTES RELATIVE PERCENT 6 % (BEAKER) (test code = 430) MONOCYTES RELATIVE PERCENT 8 % (BEAKER) (test code = 431) EOSINOPHILS RELATIVE PERCENT 4 % (BEAKER) (test code = 432) BASOPHILS RELATIVE PERCENT 0 % (BEAKER) (test code = 437) NEUTROPHILS ABSOLUTE COUNT 8.62 K/ L 1.78-5.38 H (BEAKER) (test code = 670) LYMPHOCYTES ABSOLUTE COUNT 0.61 K/ L 1.32-3.57 L (BEAKER) (test code = 414) MONOCYTES ABSOLUTE COUNT (BEAKER) 0.84 K/ L 0.30-0.82 H (test code = 415) EOSINOPHILS ABSOLUTE COUNT 0.47 K/ L 0.04-0.54 (BEAKER) (test code = 416) BASOPHILS ABSOLUTE COUNT (BEAKER) 0.04 K/ L 0.01-0.08 (test code = 417) IMMATURE GRANULOCYTES-RELATIVE 0.60 % 0.00-1.00 PERCENT (BEAKER) (test code = 2801) [id number] 03:18:22 Test Item Value Reference Range Interpretation Comments PROCALCITONIN (BEAKER) (test code 0.16 ng/mL <0.05 H = 3036) SEPSIS RISK (ng/mL)Low: 0.05-0.50Intermediate: 0.51-2.00High: >=2.01HIGH SENSITIVITY TROPONIN [id number] 01:43:34 Test Item Value Reference Range Interpretation Comments HIGH SENSITIVITY TROPONIN I (test 1098 pg/ml <=35 HH code = [id number]) [employer]ist ID - ADMINThe [employer]ER STAT High Sensitivity Troponin-I results should be used in conjunction with other diagnostic information such as ECG, clinical observations and information, and patientsymptoms to aid in the diagnosis of ME. TSH/FREE T4 IF [id number] 01:34:16 Test Item Value Reference Range Interpretation Comments THYROID STIMULATING HORMONE 2.052 uIU/mL 0.350-4.940 (BEAKER) (test code = 772) [employer] Specialist ID - ADMINCOMPREHENSIVE METABOLIC [id number] 01:23:54 Test Item Value Reference Range Interpretation Comments TOTAL PROTEIN 7.0 gm/dL 6.0-8.3 (BEAKER) (test code = 770) ALBUMIN (BEAKER) 3.7 g/dL 3.5-5.0 (test code = 1145) ALKALINE 82 U/L 40-150 PHOSPHATASE (BEAKER) (test code = 346) BILIRUBIN TOTAL 0.4 mg/dL 0.2-1.2 (BEAKER) (test code = 377) SODIUM (BEAKER) 137 meq/L 136-145 (test code = 381) POTASSIUM (BEAKER) 4.9 meq/L 3.5-5.1 (test code = 379) CHLORIDE (BEAKER) 103 meq/L 98-107 (test code = 382) CO2 (BEAKER) (test 23 meq/L 22-29 code = 355) BLOOD UREA 46 mg/dL 7-21 H NITROGEN (BEAKER) (test code = 354) CREATININE 6.34 mg/dL 0.57-1.25 H (BEAKER) (test code = 358) GLUCOSE RANDOM 116 mg/dL 70-105 H (BEAKER) (test code = 652) CALCIUM (BEAKER) 8.5 mg/dL 8.4-10.2 (test code = 697) AST (SGOT) 18 U/L 5-34 (BEAKER) (test code = 353) ALT (SGPT) 12 U/L 6-55 (BEAKER) (test code = 347) EGFR (BEAKER) 9 Interpretatio n of eGFR (test code = 1092) mL/min/1.[address] age Description sq m Result G1 Miguel l or [...] not appl icable for dialysis patien ts [employer] Specialist ID - [id number] 01:22:38 Test Item Value Reference Range Interpretation Comments MAGNESIUM (BEAKER) (test code = 2.4 mg/dL 1.6-2.6 627) [employer] Specialist ID - [id number] 01:22:38 Test Item Value Reference Range Interpretation Comments PHOSPHORUS (BEAKER) (test code = 5.1 mg/dL 2.3-4.7 H 604) [employer] Specialist ID - ADMINB-TYPE NATRIURETIC FACTOR (BNP)2022-08-15 01:19:51 Test Item Value Reference Range Interpretation Comments B-TYPE NATRIURETIC PEPTIDE 1947 pg/mL 0-100 H (BEAKER) (test code = 700) [employer] Specialist ID - OWFVIL-[id number] 01:05:19 Test Item Value Reference Range Interpretation Comments D-DIMER QUANTITATIVE (BEAKER) 2.97 MG/L FEU <0.50 H (test code = 671) Intended Use: The D-Dimer Assay can be used to aid in the diagnosis of Deep Vein Thrombosis (DVT) and Pulmonary Embolism Disease (PED).In patients with low pre- test probability, various studies concerning STA Liatest D-dimer test have reported that with a cutoff value of 0.50 MG/L FEU, the Negative Predictive Value (NPV) regarding the exclusion of thrombosis is within 95-100% range. [id number] 01:03:38 Test Item Value Reference Range Interpretation Comments PROTIME (BEAKER) (test code = 14.3 seconds 11.9-14.2 H 759) INR (BEAKER) (test code = 370) 1.13 <=5.90 PARTIAL THROMBOPLASTIN TIME 38.4 seconds 22.5-36.0 H (BEAKER) (test code = 760) RECOMMENDED COUMADIN/WARFARIN INR THERAPY RANGESSTANDARD DOSE: 2.0 - 3.0 Includes: PROPHYLAXIS for venous thrombosis, systemic embolization; TREATMENT for venous thrombosis and/or pulmonary embolus.HIGH RISK: Target INR is 2.5-3.5 for patients with mechanical heart valves.[id number] 01:03:37 Test Item Value Reference Range Interpretation Comments PARTIAL THROMBOPLASTIN TIME 38.4 seconds 22.5-36.0 H (BEAKER) (test code = 760) CBC W/PLT COUNT & AUTO [id number] 00:59:08 Test Item Value Reference Range Interpretation Comments WHITE BLOOD CELL COUNT (BEAKER) 10.8 K/ L 3.5-10.5 H (test code = 775) RED BLOOD CELL COUNT (BEAKER) 3.10 M/ L 4.63-6.08 L (test code = 761) HEMOGLOBIN (BEAKER) (test code = 9.5 GM/DL 13.7-17.5 L 410) HEMATOCRIT (BEAKER) (test code = 28.4 % 40.1-51.0 L 411) MEAN CORPUSCULAR VOLUME (BEAKER) 92 fL 79-92 (test code = 753) MEAN CORPUSCULAR HEMOGLOBIN 30.6 pg 25.7-32.2 (BEAKER) (test code = 751) MEAN CORPUSCULAR HEMOGLOBIN CONC 33.5 GM/DL 32.3-36.5 (BEAKER) (test code = 752) RED CELL DISTRIBUTION WIDTH 13.0 % 11.6-14.4 (BEAKER) (test code = 412) PLATELET COUNT (BEAKER) (test 309 K/CU MM 150-450 code = 756) MEAN PLATELET VOLUME (BEAKER) 8.2 fL 9.4-12.4 L (test code = 754) NUCLEATED RED BLOOD CELLS 0 /100 WBC 0-0 (BEAKER) (test code = 413) NEUTROPHILS RELATIVE PERCENT 83 % (BEAKER) (test code = 429) LYMPHOCYTES RELATIVE PERCENT 6 % (BEAKER) (test code = 430) MONOCYTES RELATIVE PERCENT 8 % (BEAKER) (test code = 431) EOSINOPHILS RELATIVE PERCENT 3 % (BEAKER) (test code = 432) BASOPHILS RELATIVE PERCENT 0 % (BEAKER) (test code = 437) NEUTROPHILS ABSOLUTE COUNT 8.98 K/ L 1.78-5.38 H (BEAKER) (test code = 670) LYMPHOCYTES ABSOLUTE COUNT 0.60 K/ L 1.32-3.57 L (BEAKER) (test code = 414) MONOCYTES ABSOLUTE COUNT (BEAKER) 0.83 K/ L 0.30-0.82 H (test code = 415) EOSINOPHILS ABSOLUTE COUNT 0.34 K/ L 0.04-0.54 (BEAKER) (test code = 416) BASOPHILS ABSOLUTE COUNT (BEAKER) 0.03 K/ L 0.01-0.08 (test code = 417) IMMATURE GRANULOCYTES-RELATIVE 0.50 % 0.00-1.00 PERCENT (BEAKER) (test code = 2801) BLOOD GAS, [id number] 00:43:00 Test Item Value Reference Range Interpretation Comments PH VENOUS (BEAKER) (test code = 7.35 7.32-7.42 701) PCO2 VENOUS (BEAKER) (test code = 46 mm Hg 41-51 755) PO2 VENOUS (BEAKER) (test code = 40 mm Hg 25-40 702) O2 SATURATION VENOUS (BEAKER) 73.2 % 40.0-70.0 H (test code = 703) HCO3 VENOUS (BEAKER) (test code = 25 mmol/L 21-29 705) BASE EXCESS VENOUS (BEAKER) (test -1.2 mmol/L -2.0-3.0 code = 704) PATIENT TEMPERATURE (BEAKER) 36.6 (test code = 1818) FIO2 (BEAKER) (test code = 1819) 28.0 BASIC METABOLIC [id number] 06:43:47 Test Item Value Reference Range Interpretation Comments SODIUM (BEAKER) 136 meq/L 136-145 (test code = 381) POTASSIUM 4.5 meq/L 3.5-5.1 (BEAKER) (test code = 379) CHLORIDE (BEAKER) 102 meq/L 98-107 (test code = 382) CO2 (BEAKER) 24 meq/L 22-29 (test code = 355) BLOOD UREA 27 mg/dL 7-21 H NITROGEN (BEAKER) (test code = 354) CREATININE 2.93 mg/dL 0.57-1.25 H (BEAKER) (test code = 358) GLUCOSE RANDOM 74 mg/dL 70-105 (BEAKER) (test code = 652) CALCIUM (BEAKER) 8.8 mg/dL 8.4-10.2 (test code = 697) EGFR (BEAKER) 22 Interpretatio n of eGFR (test code = [...] not appl icable for dialysis patien ts [employer] Specialist ID - [id number] 06:43:12 Test Item Value Reference Range Interpretation Comments MAGNESIUM (BEAKER) (test code = 2.2 mg/dL 1.6-2.6 627) [employer] Specialist ID - BSLACTIC ACID, [id number] 06:05:21 Test Item Value Reference Range Interpretation Comments LACTATE BLOOD VENOUS (2) (BEAKER) 1.00 mmol/L 0.50-2.20 (test code = 2872) [employer] Specialist ID - [id number] (HEMOGRAM ONLY)2022-02-13 05:56:56 Test [...] (BEAKER) (test code = 413) LACTIC ACID, [id number] 20:55:33 Test Item Value Reference Range Interpretation Comments LACTATE BLOOD VENOUS 1.21 mmol/L 0.50-2.20 Specime n moderately (2) (BEAKER) (test hemolyzed code = 2872) [employer] Specialist ID - BSRAD, CHEST, 1 VIEW, NON [id number] 17:25:00Reason for exam:- >Post PPM implantShould this be performed at the bedside?->Yes [facility] : 1945 Sex: MFINAL [...] Additional findings: None. Signed: Johann Dela Cruz Verified Date/Time: 02/12/2022 17:25:48 Arterial doppler leg, [id number] 14:40:21Ejection FractionSLEH ECHO HEARTLAB MKCKESSON [facility] HospitalHEPATITIS B SURFACE ANTIGEN 2022-02-12 13:04:45 Test Item Value Reference Range Interpretation Comments HEPATITIS B SURFACE ANTIGEN (2) Nonreactive Nonreactive ([employer]) (test code = 2585) Specimen is considered negative for HBsAg.LACTIC ACID, [id number] 12:40:59 Test Item Value Reference Range Interpretation Comments LACTATE BLOOD VENOUS 1.17 mmol/L 0.50-2.20 Specime n markedly (2) ([employer]) (test hemolyzed code = 2872) [employer] Specialist ID - keiko bHEMOGLOBIN [id number] 10:13:26 Test Item Value Reference Range Interpretation Comments HEMOGLOBIN A1C 5.1 % See_Comment [Automated m essage] ELECTROPHORESIS ([employer]) The system which (test code = 3811) generated this result transmitted ref erence range: <=5.6%. The reference range was not used to int erpret this result as normal/abnormal . "The A1c is measured using a NGSP-certified method. HbA1c value equal to or greater than 6.5% as thediagnosis cutoff for diabetes. An HbA1c value of 5.7- 6.4% indicates increased risk for diabetes (prediabetes)."[employer] Specialist ID - ADMBASIC METABOLIC [id number] 06:57:08 Test Item Value Reference Range Interpretation [...] not appl icable for dialysis patien ts [employer] Specialist ID - ALY FSKFGRHDUK3690-57-51 05:43:53 Test Item Value Reference Range Interpretation Comments MAGNESIUM (BEAKER) (test code = 2.0 mg/dL 1.6-2.6 627) [employer] Specialist ID - ALY LLACTIC ACID, [id number] 05:22:48 Test Item Value Reference Range Interpretation Comments LACTATE BLOOD VENOUS 0.93 mmol/L 0.50-2.20 Specime n moderately (2) (BEAKER) (test hemolyzed code = 5337) [employer] Specialist ID - ALY LCBC (HEMOGRAM ONLY)2022-02-12 05:03:20 Test Item Value [...] WBC 0-0 (BEAKER) (test code = 413) [id number] 18:30:17 Test Item Value Reference Range Interpretation Comments FERRITIN (BEAKER) (test code = 1374.25 ng/mL 5.00-275.00 H 361) [employer] Specialist ID - ALY SALMON, TIBC, % SAT. (WITHOUT FERRITIN)2022-02-11 18:09:11 Test Item Value Reference Range Interpretation Comments IRON (BEAKER) (test code = 547) 26.0 ug/dL 40.0-160.0 L TOTAL IRON BINDING CAPACITY 194 ug/dL 250-450 L (BEAKER) (test code = 769) IRON % SATURATION (2) (BEAKER) 13 % 20-55 L (test code = 2590) [employer]ist KATIE LU LLACTIC ACID, [id number] 18:05:32 Test Item Value Reference Range Interpretation Comments LACTATE BLOOD VENOUS 1.72 mmol/L 0.50-2.20 Specime n moderately (2) (BEAKER) (test hemolyzed code = 2872) [employer] Specialist ID - KEIKO ALMAZ, CHEST, 1 VIEW, NON [id number] 17:03:00Reason for exam:->shortness of breathShould this be performed at the bedside?->Yes [facility] : 1945 Sex: MFINAL [...] doppler (cw/pw/color)2022-02-11 16:36:12Ejection FractionSLEH ECHO HEARTLAB MKCKESSON [facility] HospitalHIGH SENSITIVITY TROPONIN [id number] 16:22:02 Test Item Value Reference Range Interpretation Comments HIGH SENSITIVITY 25 pg/ml See_Comment [Automated message] TROPONIN I (test code = The system which [id number]) generated this result transmitted ref erence range: <=35. Th e reference range was not used to int erpret this result as normal/abnormal . [employer] Specialist ID - PIAYA LThe [employer]ER STAT High Sensitivity Troponin-I results should be used in conjunction with other diagnostic information such as ECG, clinical observations and information, and patient symptoms to aid in the diagnosis of ME.B-TYPE NATRIURETIC FACTOR (BNP)2022-02-11 16:21:39 Test Item Value Reference Range Interpretation Comments B-TYPE NATRIURETIC PEPTIDE 3237 pg/mL 0-100 H (BEAKER) (test code = 700) [employer] Specialist ID Pearl LU LBASIC METABOLIC [id number] 16:16:55 Test Item Value Reference Range Interpretation [...] not appl icable for dialysis patien ts [employer] Specialist ID - ALY [id number] 16:14:59 Test Item Value Reference Range Interpretation Comments MAGNESIUM (BEAKER) (test code = 2.1 mg/dL 1.6-2.6 627) [employer] Specialist ID Pearl LU [id number] 16:14:59 Test Item Value Reference Range Interpretation Comments PHOSPHORUS (BEAKER) (test code = 5.2 mg/dL 2.3-4.7 H 604) [employer] Specialist ID - ALY LLactic Acid, Prtpfyim0278-15-01 16:10:12 Test Item Value Reference Range Interpretation Comments Lactate, Art (test 2.3 mmol/L 0.5-2.2 H Specimen code = 2874) slightly hemolyzed JACQUELYN (test code = JACQUELYN) [employer] Specialist ID - ALY L Lab Interpretation Abnormal (test code = 60947-7) [facility], [id number] 16:10:12 Test Item Value Reference Range Interpretation Comments LACTATE BLOOD 2.3 mmol/L 0.5-2.2 H Specimen sligh tly ARTERIAL (2) (BEAKER) hemoly zed (test code = 1359) [employer] Specialist ID - ALY LCBC W/PLT COUNT & AUTO [id number] 15:58:21 Test Item Value Reference Range Interpretation [...] (BEAKER) (test code = 2801) Blood gas, [id number] 15:48:36 Test Item Value Reference Range Interpretation [...] 80 Lab Interpretation Abnormal (test code = 23652-0) [facility] HospitalBLOOD GAS, [id number] 15:48:36 Test Item Value Reference Range Interpretation [...] 1819) 80.0 RAD, CHEST, 1 VIEW, NON [id number] 13:10:00Reason for exam:->tvpShould this be performed at the bedside?->Yes [facility] WILLYJevon : 1945 Sex: MFINAL REPORT RAD, CHEST, [...] Chen Verified Date/Time: 02/11/2022 13:10:56 Reading Location: [facility] B1 [id number] Ortho Consult Reading Room [facility] METABOLIC [id number] 08:14:26 Test Item Value Reference Range Interpretation [...] not appl icable for dialysis patien ts [employer] Specialist ID - PIAYA LHIGH SENSITIVITY TROPONIN [id number] 08:08:46 Test Item Value Reference Range Interpretation Comments HIGH SENSITIVITY 18 pg/ml See_Comment [Automated message] TROPONIN I (test code = The system which [id number]) generated this result transmitted ref erence range: <=35. Th e reference range was not used to int erpret this result as normal/abnormal . [employer] Specialist ID - PIAYA LThe [employer] ASSEMBLER STAT High Sensitivity Troponin-I results should be used in conjunction with other diagnostic information such as ECG, clinical observations and information, and patient symptoms to aid in the diagnosis of ME.[id number] 08:06:23 Test Item Value Reference Range Interpretation Comments MAGNESIUM (BEAKER) (test code = 2.1 mg/dL 1.6-2.6 627) [employer]ist KATIE LU LCBC W/PLT COUNT & AUTO [id number] 07:56:57 Test Item Value Reference Range Interpretation [...] = 2801) RAD, CHEST, 1 VIEW, NON [id number] 07:25:00Reason for exam:- >baselineShould this be performed at the bedside?->Yes [facility]SMANJevon : 1945 Sex: MFINAL REPORT RAD, CHEST, 1 VIEW, NON DEPT INDICATION: baseline COMPARISON: Prior day's exam FINDINGS: Portable frontal view of the chest. IMPRESSION: Support Lines: Overlying leads/monitors. Lungs and pleura: Trace bilateral effusions. Lower lobe subsegmental atelectasis. No significant pn eumothorax. Heart and mediastinum: Stable contours. Additional findings: None. Signed: Johann Dela Cruz MDReport Verified Date/Time: 02/11/2022 07:25:38 C METABOLIC [id number] 01:36:05 Test Item Value Reference Range Interpretation [...] not appl icable for dialysis patien ts [employer] Specialist ID - ALY LTSH/FREE T4 IF [id number] 01:07:43 Test Item Value Reference Range Interpretation Comments THYROID STIMULATING HORMONE 1.498 uIU/mL 0.350-4.940 (BEAKER) (test code = 772) [employer] Specialist ID - ALY [id number] 00:53:24 Test Item Value Reference Range Interpretation Comments MAGNESIUM (BEAKER) (test code = 2.1 mg/dL 1.6-2.6 627) [employer] Specialist ID - ALY [id number] 00:53:24 Test Item Value Reference Range Interpretation Comments PHOSPHORUS (BEAKER) (test code = 3.8 mg/dL 2.3-4.7 604) [employer] Specialist ID - ALY LHEPATIC FUNCTION [id number] 00:53:24 Test Item Value Reference Range Interpretation [...] (test code = 9 U/L 6-55 347) [employer] Specialist ID - ALY LB-TYPE NATRIURETIC FACTOR (BNP)2022-02-11 00:43:22 Test Item Value Reference Range Interpretation Comments B-TYPE NATRIURETIC PEPTIDE 2592 pg/mL 0-100 H (BEAKER) (test code = 700) [employer] Specialist ID - ALY LHIGH SENSITIVITY TROPONIN [id number] 00:43:01 Test Item Value Reference Range Interpretation Comments HIGH SENSITIVITY 24 pg/ml See_Comment [Automated message] TROPONIN I (test code = The system which [id number]) generated this result transmitted ref erence range: <=35. Th e reference range was not used to int erpret this result as normal/abnormal . [employer] Specialist ID - ALY LThe [employer] ASSEMBLER STAT High Sensitivity Troponin-I results should be used in conjunction with other diagnostic information such as ECG, clinical observations and information, and patient symptoms to aid in the diagnosis of ME.CBC W/PLT COUNT & AUTO [id number] 00:22:34 Test Item Value Reference Range Interpretation [...] 0.00-1.00 PERCENT (BEAKER) (test code = 2801) [id number] 20:37:00 Test Item Value Reference Range Interpretation Comments Glucose Lvl (test code = Glucose Lvl) 109 70-99 [facility]KwsyzagBRLBAGNUA8581-15-86 20:37:00 Test Item Value Reference Range Interpretation Comments BUN (test code = BUN) 35 7-22 [facility]PkdvnkfFBHCLLIQM4877-90-65 20:37:00 Test Item Value Reference Range Interpretation Comments Creatinine Lvl (test code = Creatinine 3.70 0.50-1.40 Lvl) [facility] HospitalRnreikuUDXPQHUBB6638-09-33 20:37:00 Test Item Value Reference Range Interpretation Comments Sodium Lvl (test code = Sodium Lvl) 142 135-145 [place] [id number] 20:37:00 Test Item Value Reference Range Interpretation Comments Potassium Lvl (test code = Potassium 3.9 3.5-5.1 Lvl) [facility] HospitalSvabhsjHSMTNTUAX5223-08-65 20:37:00 Test Item Value Reference Range Interpretation Comments Chloride Lvl (test code = Chloride Lvl) 108 95-109 [facility] HospitalIdrppimRFUTHAFWP0986-84-22 20:37:00 Test Item Value Reference Range Interpretation Comments CO2 (test code = CO2) 26 24-32 [facility] HospitalYaasgvyVMWFYXPLI5430-15-99 20:37:00 Test Item Value Reference Range Interpretation Comments Calcium Lvl (test code = Calcium Lvl) 7.8 8.5-10.5 [facility] HospitalCwyrmsgQVQAMTFYQ2410-28-62 20:37:00 Test Item Value Reference Range Interpretation Comments AGAP (test code = AGAP) 11.9 10.0-20.0 [facility] HospitalHgjjoeqKDXLZOTBR5692-72-77 20:37:00 Test Item Value Reference Range Interpretation Comments eGFR (test code = eGFR) [address] [facility] HospitalJwzszcrSKKMLMSTNW6003-13-80 20:37:00 Test Item Value Reference Range Interpretation Comments WBC X 10x3 (test code = WBC X 10x3) 9.8 3.7-10.[address] [facility] HospitalOoyhcqaPHBJCOCVAT3393-01-64 20:37:00 Test Item Value Reference Range Interpretation Comments RBC X 10x6 (test code = RBC X 10x6) 2.88 4.70-6.[address] [facility] [facility] [facility] HospitalIxuvaohMZEODEIDQR2244-91-79 20:37:00 Test Item Value Reference Range Interpretation Comments Hgb (test code = Hgb) 8.4 14.0-18.0 [place] 087812-11-11 20:37:00 Test Item Value Reference Range Interpretation Comments Hct (test code = Hct) 25.7 42.0-54.0 [place] 087812-11-11 20:37:00 Test Item Value Reference Range Interpretation Comments MCV (test code = MCV) 89.0 80.0-94.0 [place] 087812-11-11 20:37:00 Test Item Value Reference Range Interpretation Comments MCH (test code = MCH) 29.1 pg 27.0-31.[address] [facility] [facility] [facility] HospitalNvfzcufRGSYNWRZRV2724-95-32 20:37:00 Test Item Value Reference Range Interpretation Comments MCHC (test code = MCHC) 32.6 32.0-36.0 [place] 087812-11-11 20:37:00 Test Item Value Reference Range Interpretation Comments RDW (test code = RDW) 17.7 11.5-14.5 [place] 087812-11-11 20:37:00 Test Item Value Reference Range Interpretation Comments Platelet (test code = Platelet) 346 133-[address] [facility] [facility] HospitalBzamnzyZLFVADTZNY4324-49-69 20:37:00 Test Item Value Reference Range Interpretation Comments MPV (test code = MPV) 6.7 7.4-10.4 [place] 087812-11-11 20:37:00 Test Item Value Reference Range Interpretation Comments Segs (test code = Segs) 81.8 45.0-75.0 [place] 087812-11-11 20:37:00 Test Item Value Reference Range Interpretation Comments Lymphocytes (test code = Lymphocytes) 5.6 20.0-40.[address] [facility] [facility] [facility] HospitalNytyqtjMZDFMEQCDE3085-27-32 20:37:00 Test Item Value Reference Range Interpretation Comments Monocytes (test code = Monocytes) 6.8 2.0-12.[address] [facility] [facility] HospitalAwunydzARUIECTAGY2664-12-82 20:37:00 Test Item Value Reference Range Interpretation Comments Eosinophils (test code = 5.3 See_Comment [A utomated message] The Eosinophils) system which ge nerated this result tra nsmitted reference range : <=4.0. The reference r za was not used to int erpret this result as normal/abnormal . [facility] HospitalCxssysaNQWLMVGVWT7388-92-56 20:37:00 Test Item Value Reference Range Interpretation Comments Basophils (test code = 0.5 See_Comment [Aut omated message] The Basophils) system which ge nerated this result tra nsmitted reference range : <=1.0. The reference r za was not used to int erpret this result as normal/abnormal . [facility] HospitalHwlkoceZGBSYJBWUE6987-37-58 20:37:00 Test Item Value Reference Range Interpretation Comments Neutrophils # (test code = Neutrophils 8.0 1.5-8.1 #) [facility] HospitalQqphcckQPRNBBLLGI0942-05-63 20:37:00 Test Item Value Reference Range Interpretation Comments Lymphocytes # (test code = Lymphocytes 0.5 1.0-5.5 #) [facility] HospitalBkidpzqHHTROFAZGW9035-03-56 20:37:00 Test Item Value Reference Range Interpretation Comments Monocytes # (test code 0.7 See_Comment [Aut omated message] The = Monocytes #) system which generated this result tra nsmitted reference range : <=0.8. The reference r za was not used to int erpret this result as normal/abnormal . [facility] HospitalXidgildENIDBLVNBM4172-22-12 20:37:00 Test Item Value Reference Range Interpretation Comments Eosinophils # (test code 0.5 See_Comment [A utomated message] The = Eosinophils #) system whic h generated this result tra nsmitted reference range : <=0.5. The reference r za was not used to int erpret this result as normal/abnormal . [facility] HospitalMskfgnwEXVSZTVUS7528-15-95 20:37:00 Test Item Value Reference Range Interpretation Comments Glucose Lvl (test code = Glucose Lvl) 109 70-99 [facility] HospitalQmtweqyBZMHWOUHC6928-26-84 20:37:00 Test Item Value Reference Range Interpretation Comments BUN (test code = BUN) 35 7-22 [facility] HospitalDjjoycfXBYDVQETO2100-06-76 20:37:00 Test Item Value Reference Range Interpretation Comments Creatinine Lvl (test code = Creatinine 3.70 0.50-1.40 Lvl) [facility] HospitalZjpsfpnRZWMJRILR8278-22-24 20:37:00 Test Item Value Reference Range Interpretation Comments Sodium Lvl (test code = Sodium Lvl) 142 135-145 [facility] HospitalTnhojafGQUQJFCOT3211-91-62 20:37:00 Test Item Value Reference Range Interpretation Comments Potassium Lvl (test code = Potassium 3.9 3.5-5.1 Lvl) [facility] HospitalUftcruuVQUJONMSZ3018-02-16 20:37:00 Test Item Value Reference Range Interpretation Comments Chloride Lvl (test code = Chloride Lvl) 108 95-109 [facility] HospitalUkqjckpCYQCPLTHO2030-56-27 20:37:00 Test Item Value Reference Range Interpretation Comments CO2 (test code = CO2) 26 24-32 [facility] HospitalGpdvoarZBMPQVCCA8241-11-50 20:37:00 Test Item Value Reference Range Interpretation Comments Calcium Lvl (test code = Calcium Lvl) 7.8 8.5-10.5 [facility] HospitalMansunrBLHDVGQXY8777-48-02 20:37:00 Test Item Value Reference Range Interpretation Comments AGAP (test code = AGAP) 11.9 10.0-20.0 [facility] HospitalEctawmuHEYNLLTCE2653-52-94 20:37:00 Test Item Value Reference Range Interpretation Comments eGFR (test code = eGFR) [address] [facility] [facility] [facility] HospitalXtogvneCZMKDSEUSV2718-94-97 20:37:00 Test Item Value Reference Range Interpretation Comments WBC X 10x3 (test code = WBC X 10x3) 9.8 3.7-10.[address] [facility] HospitalTowdjufZOPFZVNGGN2570-27-56 20:37:00 Test Item Value Reference Range Interpretation Comments RBC X 10x6 (test code = RBC X 10x6) 2.88 4.70-6.[address] [facility] [facility] HospitalCnimhnmRNEZSMHMTG3602-62-36 20:37:00 Test Item Value Reference Range Interpretation Comments Hgb (test code = Hgb) 8.4 14.0-18.[address] [facility] HospitalQxzvfpaEWHOSQBDXR9644-99-32 20:37:00 Test Item Value Reference Range Interpretation Comments Hct (test code = Hct) 25.7 42.0-54.[address] [facility] [facility] HospitalZgofemhOHLAQUFDOF7768-55-12 20:37:00 Test Item Value Reference Range Interpretation Comments MCV (test code = MCV) 89.0 80.0-94.[address] [facility] [facility] HospitalFvnmqudFNNABAYMYO4361-22-20 20:37:00 Test Item Value Reference Range Interpretation Comments MCH (test code = MCH) 29.1 pg 27.0-31.[address] [facility] [facility] HospitalJrnevhhVGTJZMGGMQ9519-05-39 20:37:00 Test Item Value Reference Range Interpretation Comments MCHC (test code = MCHC) 32.6 32.0-36.[address] [facility] HospitalOwpnjkjYLBUUZBALR3727-90-30 20:37:00 Test Item Value Reference Range Interpretation Comments RDW (test code = RDW) 17.7 11.5-14.[address] [facility] [facility] HospitalOmykxhvAZXOTUQEEV4191-51-30 20:37:00 Test Item Value Reference Range Interpretation Comments Platelet (test code = Platelet) 346 987-[address] [facility] [facility] [facility] HospitalJqcoacaSDCQAFNHYQ0289-93-36 20:37:00 Test Item Value Reference Range Interpretation Comments MPV (test code = MPV) 6.7 7.4-10.[address] [facility] [facility] HospitalEmphohjTPIQUCOTDF4921-77-15 20:37:00 Test Item Value Reference Range Interpretation Comments Segs (test code = Segs) 81.8 45.0-75.0 [place] [address]-11-11 20:37:00 Test Item Value Reference Range Interpretation Comments Lymphocytes (test code = Lymphocytes) 5.6 20.0-40.0 [place] [address]-11-11 20:37:00 Test Item Value Reference Range Interpretation Comments Monocytes (test code = Monocytes) 6.8 2.0-12.0 [place] [address]-11-11 20:37:00 Test Item Value Reference Range Interpretation Comments Eosinophils (test code = 5.3 See_Comment [A utomated message] The Eosinophils) system which ge nerated this result tra nsmitted reference range : <=4.0. The reference r za was not used to int erpret this result as normal/abnormal . [address]11-11 20:37:00 Test Item Value Reference Range Interpretation Comments Basophils (test code = 0.5 See_Comment [Aut omated message] The Basophils) system which ge nerated this result tra nsmitted reference range : <=1.0. The reference r za was not used to int erpret this result as normal/abnormal . [place] 087812-11-11 20:37:00 Test Item Value Reference Range Interpretation Comments Neutrophils # (test code = Neutrophils 8.0 1.5-8.1 #) [address]11-11 20:37:00 Test Item Value Reference Range Interpretation Comments Lymphocytes # (test code = Lymphocytes 0.5 1.0-5.5 #) [address]11-11 20:37:00 Test Item Value Reference Range Interpretation Comments Monocytes # (test code 0.7 See_Comment [Aut omated message] The = Monocytes #) system which generated this result tra nsmitted reference range : <=0.8. The reference r za was not used to int erpret this result as normal/abnormal . [place] [address]-11-11 20:37:00 Test Item Value Reference Range Interpretation Comments Eosinophils # (test code 0.5 See_Comment [A utomated message] The = Eosinophils #) system wh h generated this result tra nsmitted reference range : <=0.5. The reference r za was not used to int erpret this result as normal/abnormal . [facility] HospitalKuvqtkaGGTLQCDJO9724-25-64 20:37:00 Test Item Value Reference Range Interpretation Comments Glucose Lvl (test code = Glucose Lvl) 109 70-99 [facility] HospitalUoeuamaJFZVXVMSD8268-35-90 20:37:00 Test Item Value Reference Range Interpretation Comments BUN (test code = BUN) 35 7-22 [facility] HospitalPmwcnlvJUWEAFQPC6500-83-37 20:37:00 Test Item Value Reference Range Interpretation Comments Creatinine Lvl (test code = Creatinine 3.70 0.50-1.40 Lvl) [facility] HospitalCtlfcxtXOOMQWUJT3607-73-84 20:37:00 Test Item Value Reference Range Interpretation Comments Sodium Lvl (test code = Sodium Lvl) 142 135-145 [facility] HospitalSlehnwdUVZNKIWII8712-13-45 20:37:00 Test Item Value Reference Range Interpretation Comments Potassium Lvl (test code = Potassium 3.9 3.5-5.1 Lvl) [facility] HospitalEgbvplxTRUTCAAIT8575-84-50 20:37:00 Test Item Value Reference Range Interpretation Comments Chloride Lvl (test code = Chloride Lvl) 108 95-109 [facility] HospitalRggwvhyACISAHEGP9954-76-07 20:37:00 Test Item Value Reference Range Interpretation Comments CO2 (test code = CO2) 26 24-32 [facility] HospitalUgebwqtISDOXUZNK1242-46-29 20:37:00 Test Item Value Reference Range Interpretation Comments Calcium Lvl (test code = Calcium Lvl) 7.8 8.5-10.5 [facility] HospitalQycxygpXGDLEIBEV6884-24-69 20:37:00 Test Item Value Reference Range Interpretation Comments AGAP (test code = AGAP) 11.9 10.0-20.0 [facility] HospitalFgmqwvzRBKUQLMGQ9301-32-88 20:37:00 Test Item Value Reference Range Interpretation Comments eGFR (test code = eGFR) [address] [facility] [facility] [facility] HospitalCavtpycLFSPFTTMJR2014-72-47 20:37:00 Test Item Value Reference Range Interpretation Comments WBC X 10x3 (test code = WBC X 10x3) 9.8 3.7-10.[address] [facility] HospitalUbsljutEJRBODTFUS7760-69-81 20:37:00 Test Item Value Reference Range Interpretation Comments RBC X 10x6 (test code = RBC X 10x6) 2.88 4.70-6.10 [place] 087812-11-11 20:37:00 Test Item Value Reference Range Interpretation Comments Hgb (test code = Hgb) 8.4 14.0-18.0 [place] 087812-11-11 20:37:00 Test Item Value Reference Range Interpretation Comments Hct (test code = Hct) 25.7 42.0-54.0 [place] 087812-11-11 20:37:00 Test Item Value Reference Range Interpretation Comments MCV (test code = MCV) 89.0 80.0-94.0 [place] 087812-11-11 20:37:00 Test Item Value Reference Range Interpretation Comments MCH (test code = MCH) 29.1 pg 27.0-31.0 [place] 087812-11-11 20:37:00 Test Item Value Reference Range Interpretation Comments MCHC (test code = MCHC) 32.6 32.0-36.0 [place] 087812-11-11 20:37:00 Test Item Value Reference Range Interpretation Comments RDW (test code = RDW) 17.7 11.5-14.5 [place] 087812-11-11 20:37:00 Test Item Value Reference Range Interpretation Comments Platelet (test code = Platelet) 346 133-[address] [facility] [facility] [facility] HospitalPzkrmlmOBEFHEHTQK0523-51-82 20:37:00 Test Item Value Reference Range Interpretation Comments MPV (test code = MPV) 6.7 7.4-10.4 [place] 087812-11-11 20:37:00 Test Item Value Reference Range Interpretation Comments Segs (test code = Segs) 81.8 45.0-75.0 [place] 087812-11-11 20:37:00 Test Item Value Reference Range Interpretation Comments Lymphocytes (test code = Lymphocytes) 5.6 20.0-40.0 [place] [address]-11-11 20:37:00 Test Item Value Reference Range Interpretation Comments Monocytes (test code = Monocytes) 6.8 2.0-12.0 [place] [address]-11-11 20:37:00 Test Item Value Reference Range Interpretation Comments Eosinophils (test code = 5.3 See_Comment [A utomated message] The Eosinophils) system which ge nerated this result tra nsmitted reference range : <=4.0. The reference r za was not used to int erpret this result as normal/abnormal . [facility] HospitalPociluaAMZFLLPZFV8073-76-25 20:37:00 Test Item Value Reference Range Interpretation Comments Basophils (test code = 0.5 See_Comment [Aut omated message] The Basophils) system which ge nerated this result tra nsmitted reference range : <=1.0. The reference r za was not used to int erpret this result as normal/abnormal . [facility] HospitalNpgpkcxYWFFOARFNI6214-36-77 20:37:00 Test Item Value Reference Range Interpretation Comments Neutrophils # (test code = Neutrophils 8.0 1.5-8.1 #) [facility] HospitalTfgfrqlSEJOFLYXSW0969-17-21 20:37:00 Test Item Value Reference Range Interpretation Comments Lymphocytes # (test code = Lymphocytes 0.5 1.0-5.5 #) [facility] HospitalCrcnjxpEPQODFJZAO0850-95-90 20:37:00 Test Item Value Reference Range Interpretation Comments Monocytes # (test code 0.7 See_Comment [Aut omated message] The = Monocytes #) system which generated this result tra nsmitted reference range : <=0.8. The reference r za was not used to int erpret this result as normal/abnormal . [facility] HospitalMkdtnwuYGSLNRAKMC2112-35-56 20:37:00 Test Item Value Reference Range Interpretation Comments Eosinophils # (test code 0.5 See_Comment [A utomated message] The = Eosinophils #) system whic h generated this result tra nsmitted reference range : <=0.5. The reference r za was not used to int erpret this result as normal/abnormal . [facility] HospitalGwzjpagAWIKOIBKP9735-18-54 20:37:00 Test Item Value Reference Range Interpretation Comments Glucose Lvl (test code = Glucose Lvl) 109 70-99 [facility] HospitalRayeakyUEPYKCGTC0248-48-43 20:37:00 Test Item Value Reference Range Interpretation Comments BUN (test code = BUN) 35 7-22 [facility] HospitalLtvtetwLTODQVIIG9789-33-51 20:37:00 Test Item Value Reference Range Interpretation Comments Creatinine Lvl (test code = Creatinine 3.70 0.50-1.40 Lvl) [facility] HospitalVpypyguVIMJYLQGI1643-43-53 20:37:00 Test Item Value Reference Range Interpretation Comments Sodium Lvl (test code = Sodium Lvl) 142 135-145 [facility] HospitalPdenptdKZFLOXXLA4570-20-89 20:37:00 Test Item Value Reference Range Interpretation Comments Potassium Lvl (test code = Potassium 3.9 3.5-5.1 Lvl) [facility] HospitalFrcscjsPIJRGIWXE8695-46-12 20:37:00 Test Item Value Reference Range Interpretation Comments Chloride Lvl (test code = Chloride Lvl) 108 95-109 [facility] HospitalGphekpaBSBRHBSEM4780-01-99 20:37:00 Test Item Value Reference Range Interpretation Comments CO2 (test code = CO2) 26 24-32 [facility] HospitalTslegbfPJNLOZUXU0087-37-29 20:37:00 Test Item Value Reference Range Interpretation Comments Calcium Lvl (test code = Calcium Lvl) 7.8 8.5-10.5 [facility] HospitalLlakmxiOTFYHHCNJ7102-65-48 20:37:00 Test Item Value Reference Range Interpretation Comments AGAP (test code = AGAP) 11.9 10.0-20.0 [facility] HospitalGkzzjjzJWXAGJYOX0202-15-62 20:37:00 Test Item Value Reference Range Interpretation Comments eGFR (test code = eGFR) [address] HospitalEvbciktGKCOANBSIW7595-25-78 20:37:00 Test Item Value Reference Range Interpretation Comments WBC X 10x3 (test code = WBC X 10x3) 9.8 3.7-10.[address] [facility] HospitalHkujpftXHEOHPILZP1627-76-64 20:37:00 Test Item Value Reference Range Interpretation Comments RBC X 10x6 (test code = RBC X 10x6) 2.88 4.70-6.[address] [facility] HospitalPjtubviNMRYJPGIWK3936-86-78 20:37:00 Test Item Value Reference Range Interpretation Comments Hgb (test code = Hgb) 8.4 14.0-18.[address] [facility] HospitalUsxzmmeACZUGCJRRD2960-55-11 20:37:00 Test Item Value Reference Range Interpretation Comments Hct (test code = Hct) 25.7 42.0-54.[address] [facility] HospitalRwmwsghLBVJDQHGRK6985-79-71 20:37:00 Test Item Value Reference Range Interpretation Comments MCV (test code = MCV) 89.0 80.0-94.[address] HospitalFyvjddzPIQSEKSQXC5974-32-45 20:37:00 Test Item Value Reference Range Interpretation Comments MCH (test code = MCH) 29.1 pg 27.0-31.[address] HospitalMekyblnCMZTENDDXA7098-20-37 20:37:00 Test Item Value Reference Range Interpretation Comments MCHC (test code = MCHC) 32.6 32.0-36.0 [place] 087812-11-11 20:37:00 Test Item Value Reference Range Interpretation Comments RDW (test code = RDW) 17.7 11.5-14.5 [place] 087812-11-11 20:37:00 Test Item Value Reference Range Interpretation Comments Platelet (test code = Platelet) 346 133-450 [place] 087812-11-11 20:37:00 Test Item Value Reference Range Interpretation Comments MPV (test code = MPV) 6.7 7.4-10.4 [place] [address]-11-11 20:37:00 Test Item Value Reference Range Interpretation Comments Segs (test code = Segs) 81.8 45.0-75.0 [place] 087812-11-11 20:37:00 Test Item Value Reference Range Interpretation Comments Lymphocytes (test code = Lymphocytes) 5.6 20.0-40.0 [place] 087812-11-11 20:37:00 Test Item Value Reference Range Interpretation Comments Monocytes (test code = Monocytes) 6.8 2.0-12.0 [place] 087812-11-11 20:37:00 Test Item Value Reference Range Interpretation Comments Eosinophils (test code = 5.3 See_Comment [A utomated message] The Eosinophils) system which ge nerated this result tra nsmitted reference range : <=4.0. The reference r za was not used to int erpret this result as normal/abnormal . [place] 087812-11-11 20:37:00 Test Item Value Reference Range Interpretation Comments Basophils (test code = 0.5 See_Comment [Aut omated message] The Basophils) system which ge nerated this result tra nsmitted reference range : <=1.0. The reference r za was not used to int erpret this result as normal/abnormal . [place] 087812-11-11 20:37:00 Test Item Value Reference Range Interpretation Comments Neutrophils # (test code = Neutrophils 8.0 1.5-8.1 #) [place] 087812-11-11 20:37:00 Test Item Value Reference Range Interpretation Comments Lymphocytes # (test code = Lymphocytes 0.5 1.0-5.5 #) [facility] HospitalRoqqhwlISUYPWLIUN8800-83-08 20:37:00 Test Item Value Reference Range Interpretation Comments Monocytes # (test code 0.7 See_Comment [Aut omated message] The = Monocytes #) system which generated this result tra nsmitted reference range : <=0.8. The reference r za was not used to int erpret this result as normal/abnormal . [facility] HospitalWdybptsYIRKPRESLI1013-92-05 20:37:00 Test Item Value Reference Range Interpretation Comments Eosinophils # (test code 0.5 See_Comment [A utomated message] The = Eosinophils #) system whic h generated this result tra nsmitted reference range : <=0.5. The reference r za was not used to int erpret this result as normal/abnormal . [facility] HospitalJhpvmjxFZSQTUUDI0630-33-13 20:37:00 Test Item Value Reference Range Interpretation Comments Glucose Lvl (test code = Glucose Lvl) 109 70-99 [facility] HospitalHbaiejnPSPFBTTYX5886-47-40 20:37:00 Test Item Value Reference Range Interpretation Comments BUN (test code = BUN) 35 7-22 [place] 760682-11-11 20:37:00 Test Item Value Reference Range Interpretation Comments Creatinine Lvl (test code = Creatinine 3.70 0.50-1.40 Lvl) [facility] HospitalNjmdyftHCMPBRNIA3393-61-12 20:37:00 Test Item Value Reference Range Interpretation Comments Sodium Lvl (test code = Sodium Lvl) 142 135-145 [facility] HospitalCfwphhwDNOQKNHMP3102-88-52 20:37:00 Test Item Value Reference Range Interpretation Comments Potassium Lvl (test code = Potassium 3.9 3.5-5.1 Lvl) [facility] HospitalAnxwvvhEFBGAXQRS0862-22-92 20:37:00 Test Item Value Reference Range Interpretation Comments Chloride Lvl (test code = Chloride Lvl) 108 95-109 [facility] HospitalNykburgYPMKOJQIT2516-39-34 20:37:00 Test Item Value Reference Range Interpretation Comments CO2 (test code = CO2) 26 24-32 [facility] HospitalAifhhqpRAIRDOJYM2465-98-28 20:37:00 Test Item Value Reference Range Interpretation Comments Calcium Lvl (test code = Calcium Lvl) 7.8 8.5-10.5 [facility] HospitalPtxeotjNBCZARABA6613-16-84 20:37:00 Test Item Value Reference Range Interpretation Comments AGAP (test code = AGAP) 11.9 10.0-20.0 [facility] HospitalFcnwiqoTEUXHYBGM1468-67-01 20:37:00 Test Item Value Reference Range Interpretation Comments eGFR (test code = eGFR) [address] [facility] [facility] HospitalYicpzinSJBETSOZBC9275-37-37 20:37:00 Test Item Value Reference Range Interpretation Comments WBC X 10x3 (test code = WBC X 10x3) 9.8 3.7-10.[address] HospitalHvperkwWLFVUNZCQU1168-04-65 20:37:00 Test Item Value Reference Range Interpretation Comments RBC X 10x6 (test code = RBC X 10x6) 2.88 4.70-6.[address] [facility] HospitalOsmjjqnQSQHQEKIWD9975-61-76 20:37:00 Test Item Value Reference Range Interpretation Comments Hgb (test code = Hgb) 8.4 14.0-18.[address] [facility] HospitalWscsionUAKAAVSTBM5633-91-30 20:37:00 Test Item Value Reference Range Interpretation Comments Hct (test code = Hct) 25.7 42.0-54.[address] HospitalWwvkvleOALYMVNMNO7511-74-74 20:37:00 Test Item Value Reference Range Interpretation Comments MCV (test code = MCV) 89.0 80.0-94.[address] HospitalHecsbjmZXANRLEGJI1854-72-97 20:37:00 Test Item Value Reference Range Interpretation Comments MCH (test code = MCH) 29.1 pg 27.0-31.[address] [facility] HospitalDmemvltGRFPMTYHIB5692-21-10 20:37:00 Test Item Value Reference Range Interpretation Comments MCHC (test code = MCHC) 32.6 32.0-36.[address] [facility] HospitalVhakrgsDSKZTOBJKS9179-20-21 20:37:00 Test Item Value Reference Range Interpretation Comments RDW (test code = RDW) 17.7 11.5-14.[address] [facility] HospitalIdgnoupQEPFVNJCPY5183-62-02 20:37:00 Test Item Value Reference Range Interpretation Comments Platelet (test code = Platelet) 346 133-[address] [facility] [facility] HospitalXxvgqhmGYGYQVGKHM6984-79-81 20:37:00 Test Item Value Reference Range Interpretation Comments MPV (test code = MPV) 6.7 7.4-10.[address] [facility] HospitalTdcuxtrLEKRDAZGUY5600-74-63 20:37:00 Test Item Value Reference Range Interpretation Comments Segs (test code = Segs) 81.8 45.0-75.0 [place] [address]-11-11 20:37:00 Test Item Value Reference Range Interpretation Comments Lymphocytes (test code = Lymphocytes) 5.6 20.0-40.0 [place] [address]-11-11 20:37:00 Test Item Value Reference Range Interpretation Comments Monocytes (test code = Monocytes) 6.8 2.0-12.0 [place] [address]-11-11 20:37:00 Test Item Value Reference Range Interpretation Comments Eosinophils (test code = 5.3 See_Comment [A utomated message] The Eosinophils) system which ge nerated this result tra nsmitted reference range : <=4.0. The reference r za was not used to int erpret this result as normal/abnormal . [place] [address]-11-11 20:37:00 Test Item Value Reference Range Interpretation Comments Basophils (test code = 0.5 See_Comment [Aut omated message] The Basophils) system which ge nerated this result tra nsmitted reference range : <=1.0. The reference r az was not used to int erpret this result as normal/abnormal . [place] 087812-11-11 20:37:00 Test Item Value Reference Range Interpretation Comments Neutrophils # (test code = Neutrophils 8.0 1.5-8.1 #) [address]11-11 20:37:00 Test Item Value Reference Range Interpretation Comments Lymphocytes # (test code = Lymphocytes 0.5 1.0-5.5 #) [place] [address]-11-11 20:37:00 Test Item Value Reference Range Interpretation Comments Monocytes # (test code 0.7 See_Comment [Aut omated message] The = Monocytes #) system which generated this result tra nsmitted reference range : <=0.8. The reference r za was not used to int erpret this result as normal/abnormal . [place] [address]-11-11 20:37:00 Test Item Value Reference Range Interpretation Comments Eosinophils # (test code 0.5 See_Comment [A utomated message] The = Eosinophils #) system [facility] h generated this result tra nsmitted reference range : <=0.5. The reference r za was not used to int erpret this result as normal/abnormal . [facility] HospitalAsotwanHFFEJFKFY0674-46-45 20:37:00 Test Item Value Reference Range Interpretation Comments Glucose Lvl (test code = Glucose Lvl) 109 70-99 [facility] HospitalHmlpbhnJSTLJQXQS9400-56-20 20:37:00 Test Item Value Reference Range Interpretation Comments BUN (test code = BUN) 35 7-22 [facility] HospitalShkhxalQGOWXDNON7060-47-25 20:37:00 Test Item Value Reference Range Interpretation Comments Creatinine Lvl (test code = Creatinine 3.70 0.50-1.40 Lvl) [facility] HospitalAegugcyCZTIAHNUK4890-33-55 20:37:00 Test Item Value Reference Range Interpretation Comments Sodium Lvl (test code = Sodium Lvl) 142 135-145 [facility] HospitalHizphyhAGBDGXZWC9325-98-42 20:37:00 Test Item Value Reference Range Interpretation Comments Potassium Lvl (test code = Potassium 3.9 3.5-5.1 Lvl) [facility] HospitalHmxfenaVDZVPYCEH5633-19-61 20:37:00 Test Item Value Reference Range Interpretation Comments Chloride Lvl (test code = Chloride Lvl) 108 95-109 [facility] HospitalTnuhbdkFGOHHYSJK2420-62-65 20:37:00 Test Item Value Reference Range Interpretation Comments CO2 (test code = CO2) 26 24-32 [facility] HospitalPfuoshdYDEYDXWJV7246-45-86 20:37:00 Test Item Value Reference Range Interpretation Comments Calcium Lvl (test code = Calcium Lvl) 7.8 8.5-10.5 [facility] HospitalHjojggbUAHTWNNNX0340-56-83 20:37:00 Test Item Value Reference Range Interpretation Comments AGAP (test code = AGAP) 11.9 10.0-20.0 [facility] HospitalNsafyhvYAKQGOXOY7983-83-02 20:37:00 Test Item Value Reference Range Interpretation Comments eGFR (test code = eGFR) [address] HospitalVqzgeltAUXQSNOWQH5318-12-51 20:37:00 Test Item Value Reference Range Interpretation Comments WBC X 10x3 (test code = WBC X 10x3) 9.8 3.7-10.[address] [facility] HospitalHydpaykLNAQQWOAMN0186-44-15 20:37:00 Test Item Value Reference Range Interpretation Comments RBC X 10x6 (test code = RBC X 10x6) 2.88 4.70-6.10 [place] [address]-11-11 20:37:00 Test Item Value Reference Range Interpretation Comments Hgb (test code = Hgb) 8.4 14.0-18.0 [place] [address]-11-11 20:37:00 Test Item Value Reference Range Interpretation Comments Hct (test code = Hct) 25.7 42.0-54.0 [place] 087812-11-11 20:37:00 Test Item Value Reference Range Interpretation Comments MCV (test code = MCV) 89.0 80.0-94.0 [place] 087812-11-11 20:37:00 Test Item Value Reference Range Interpretation Comments MCH (test code = MCH) 29.1 pg 27.0-31.0 [place] 087812-11-11 20:37:00 Test Item Value Reference Range Interpretation Comments MCHC (test code = MCHC) 32.6 32.0-36.0 [place] 087812-11-11 20:37:00 Test Item Value Reference Range Interpretation Comments RDW (test code = RDW) 17.7 11.5-14.5 [place] 087812-11-11 20:37:00 Test Item Value Reference Range Interpretation Comments Platelet (test code = Platelet) 346 133-[address] [facility] HospitalPerisstQJADXMSVUE0791-25-19 20:37:00 Test Item Value Reference Range Interpretation Comments MPV (test code = MPV) 6.7 7.4-10.4 [place] 087812-11-11 20:37:00 Test Item Value Reference Range Interpretation Comments Segs (test code = Segs) 81.8 45.0-75.0 [place] 087812-11-11 20:37:00 Test Item Value Reference Range Interpretation Comments Lymphocytes (test code = Lymphocytes) 5.6 20.0-40.0 [place] [address]-11-11 20:37:00 Test Item Value Reference Range Interpretation Comments Monocytes (test code = Monocytes) 6.8 2.0-12.0 [place] [address]-11-11 20:37:00 Test Item Value Reference Range Interpretation Comments Eosinophils (test code = 5.3 See_Comment [A utomated message] The Eosinophils) system which ge nerated this result tra nsmitted reference range : <=4.0. The reference r za was not used to int erpret this result as normal/abnormal . [facility] HospitalDdixivvFUKYQESDBO3313-03-28 20:37:00 Test Item Value Reference Range Interpretation Comments Basophils (test code = 0.5 See_Comment [Aut omated message] The Basophils) system which ge nerated this result tra nsmitted reference range : <=1.0. The reference r za was not used to int erpret this result as normal/abnormal . [facility] HospitalVshwrgkJTWSFYBMZA1147-18-81 20:37:00 Test Item Value Reference Range Interpretation Comments Neutrophils # (test code = Neutrophils 8.0 1.5-8.1 #) [facility] HospitalVfsfthrQEHNFQOWTN2715-37-86 20:37:00 Test Item Value Reference Range Interpretation Comments Lymphocytes # (test code = Lymphocytes 0.5 1.0-5.5 #) [facility] HospitalVqzpxvqQIGATXPGEX8687-06-99 20:37:00 Test Item Value Reference Range Interpretation Comments Monocytes # (test code 0.7 See_Comment [Aut omated message] The = Monocytes #) system which generated this result tra nsmitted reference range : <=0.8. The reference r za was not used to int erpret this result as normal/abnormal . [facility] HospitalSxnxvnzHOTSIULIBH9029-26-19 20:37:00 Test Item Value Reference Range Interpretation Comments Eosinophils # (test code 0.5 See_Comment [A utomated message] The = Eosinophils #) system whic h generated this result tra nsmitted reference range : <=0.5. The reference r za was not used to int erpret this result as normal/abnormal . [facility] HospitalHyofenlVEGHGEUGB6302-92-63 20:37:00 Test Item Value Reference Range Interpretation Comments Glucose Lvl (test code = Glucose Lvl) 109 70-99 [facility] HospitalKxjrsdkQZVQUPUDO8820-42-11 20:37:00 Test Item Value Reference Range Interpretation Comments BUN (test code = BUN) 35 7-22 [facility] HospitalOkkfgfcQYEXFCYTT5590-34-95 20:37:00 Test Item Value Reference Range Interpretation Comments Creatinine Lvl (test code = Creatinine 3.70 0.50-1.40 Lvl) [facility] HospitalFtflhvxGVGPKZQNC4872-31-65 20:37:00 Test Item Value Reference Range Interpretation Comments Sodium Lvl (test code = Sodium Lvl) 142 135-145 [facility] HospitalJpfbrlwDGIHGJKXS7788-87-12 20:37:00 Test Item Value Reference Range Interpretation Comments Potassium Lvl (test code = Potassium 3.9 3.5-5.1 Lvl) [facility] HospitalZduqyuhFYACPVEMQ2874-38-03 20:37:00 Test Item Value Reference Range Interpretation Comments Chloride Lvl (test code = Chloride Lvl) 108 95-109 [facility] HospitalSlrrbbrTRSODMGFS3717-68-50 20:37:00 Test Item Value Reference Range Interpretation Comments CO2 (test code = CO2) 26 24-32 [facility] HospitalYfpewtvJZDHCYLNM0578-06-23 20:37:00 Test Item Value Reference Range Interpretation Comments Calcium Lvl (test code = Calcium Lvl) 7.8 8.5-10.5 [facility] HospitalIostsxlHQHUYBFNU6285-73-41 20:37:00 Test Item Value Reference Range Interpretation Comments AGAP (test code = AGAP) 11.9 10.0-20.0 [facility] HospitalKzlyaomNDJBHVHBQ2357-09-73 20:37:00 Test Item Value Reference Range Interpretation Comments eGFR (test code = eGFR) [address] [facility] [facility] HospitalJuhyirjTFNPYVKCWV0082-49-92 20:37:00 Test Item Value Reference Range Interpretation Comments WBC X 10x3 (test code = WBC X 10x3) 9.8 3.7-10.[address] [facility] HospitalYdgxecgBUOFQUIMUC4176-61-84 20:37:00 Test Item Value Reference Range Interpretation Comments RBC X 10x6 (test code = RBC X 10x6) 2.88 4.70-6.[address] [facility] HospitalWmuiiahOHDFYXYLLE6274-09-96 20:37:00 Test Item Value Reference Range Interpretation Comments Hgb (test code = Hgb) 8.4 14.0-18.[address] [facility] HospitalCmpzmkvQLVOVUBKEU0597-99-24 20:37:00 Test Item Value Reference Range Interpretation Comments Hct (test code = Hct) 25.7 42.0-54.[address] [facility] HospitalDtvetizYKYTMMVMRT1397-03-66 20:37:00 Test Item Value Reference Range Interpretation Comments MCV (test code = MCV) 89.0 80.0-94.[address] [facility] HospitalUhlodseGOZBZSABNV4214-54-99 20:37:00 Test Item Value Reference Range Interpretation Comments MCH (test code = MCH) 29.1 pg 27.0-31.0 [place] 087812-11-11 20:37:00 Test Item Value Reference Range Interpretation Comments MCHC (test code = MCHC) 32.6 32.0-36.0 [place] 087812-11-11 20:37:00 Test Item Value Reference Range Interpretation Comments RDW (test code = RDW) 17.7 11.5-14.5 [place] 087812-11-11 20:37:00 Test Item Value Reference Range Interpretation Comments Platelet (test code = Platelet) 346 133-[address] [facility] [facility] HospitalWdcscliHQUVOTFSTH5086-26-28 20:37:00 Test Item Value Reference Range Interpretation Comments MPV (test code = MPV) 6.7 7.4-10.4 [place] 087812-11-11 20:37:00 Test Item Value Reference Range Interpretation Comments Segs (test code = Segs) 81.8 45.0-75.0 [place] 087812-11-11 20:37:00 Test Item Value Reference Range Interpretation Comments Lymphocytes (test code = Lymphocytes) 5.6 20.0-40.0 [place] 087812-11-11 20:37:00 Test Item Value Reference Range Interpretation Comments Monocytes (test code = Monocytes) 6.8 2.0-12.[address] [facility] HospitalOkjluukVELIZQTODJ5889-54-30 20:37:00 Test Item Value Reference Range Interpretation Comments Eosinophils (test code = 5.3 See_Comment [A utomated message] The Eosinophils) system which ge nerated this result tra nsmitted reference range : <=4.0. The reference r za was not used to int erpret this result as normal/abnormal . [place] 087812-11-11 20:37:00 Test Item Value Reference Range Interpretation Comments Basophils (test code = 0.5 See_Comment [Aut omated message] The Basophils) system which ge nerated this result tra nsmitted reference range : <=1.0. The reference r za was not used to int erpret this result as normal/abnormal . [place] 087812-11-11 20:37:00 Test Item Value Reference Range Interpretation Comments Neutrophils # (test code = Neutrophils 8.0 1.5-8.1 #) [place] 087812-11-11 20:37:00 Test Item Value Reference Range Interpretation Comments Lymphocytes # (test code = Lymphocytes 0.5 1.0-5.5 #) [facility] HospitalUiejoaqYVKNGGWSOI7260-10-15 20:37:00 Test Item Value Reference Range Interpretation Comments Monocytes # (test code 0.7 See_Comment [Aut omated message] The = Monocytes #) system which generated this result tra nsmitted reference range : <=0.8. The reference r za was not used to int erpret this result as normal/abnormal . [facility] HospitalRhxwrftBOBSBAAGEP8308-10-05 20:37:00 Test Item Value Reference Range Interpretation Comments Eosinophils # (test code 0.5 See_Comment [A utomated message] The = Eosinophils #) system whic h generated this result tra nsmitted reference range : <=0.5. The reference r za was not used to int erpret this result as normal/abnormal . [facility] HospitalMdigbcnAGKWLYKSV9002-66-38 20:37:00 Test Item Value Reference Range Interpretation Comments Glucose Lvl (test code = Glucose Lvl) 109 70-99 [facility] HospitalZvyimwdICYADMKGK4928-48-34 20:37:00 Test Item Value Reference Range Interpretation Comments BUN (test code = BUN) 35 7-22 [facility] HospitalYzjeudwWPJEWFLXJ6918-66-01 20:37:00 Test Item Value Reference Range Interpretation Comments Creatinine Lvl (test code = Creatinine 3.70 0.50-1.40 Lvl) [facility] HospitalJmcxyrcGUPOSILDB0626-19-74 20:37:00 Test Item Value Reference Range Interpretation Comments Sodium Lvl (test code = Sodium Lvl) 142 135-145 [facility] HospitalKoefmdxSGJPCRCAP6070-24-24 20:37:00 Test Item Value Reference Range Interpretation Comments Potassium Lvl (test code = Potassium 3.9 3.5-5.1 Lvl) [facility] HospitalXstcwzjNAYNXHJFK6226-16-48 20:37:00 Test Item Value Reference Range Interpretation Comments Chloride Lvl (test code = Chloride Lvl) 108 95-109 [facility] [facility]vpetjbCKKNBUSXP8455-43-47 20:37:00 Test Item Value Reference Range Interpretation Comments CO2 (test code = CO2) 26 24-32 [facility] HospitalEoiarkmCYSXMNVJN0465-95-59 20:37:00 Test Item Value Reference Range Interpretation Comments Calcium Lvl (test code = Calcium Lvl) 7.8 8.5-10.5 [facility] HospitalAsrwqcoFPDVVPAYT5942-00-04 20:37:00 Test Item Value Reference Range Interpretation Comments AGAP (test code = AGAP) 11.9 10.0-20.0 [facility] HospitalZpwsocrYDMXBFEHW4381-36-66 20:37:00 Test Item Value Reference Range Interpretation Comments eGFR (test code = eGFR) [address] [facility] HospitalRqsgdutVQBCMZBPNH7817-61-06 20:37:00 Test Item Value Reference Range Interpretation Comments WBC X 10x3 (test code = WBC X 10x3) 9.8 3.7-10.[address] [facility] HospitalNfstumiKVCOEOEFAF9002-91-16 20:37:00 Test Item Value Reference Range Interpretation Comments RBC X 10x6 (test code = RBC X 10x6) 2.88 4.70-6.[address] [facility] HospitalDbzyfavZWMXDBVRFA4587-32-76 20:37:00 Test Item Value Reference Range Interpretation Comments Hgb (test code = Hgb) 8.4 14.0-18.[address] [facility] HospitalCyhlvbaBBKWXODHHQ1817-54-31 20:37:00 Test Item Value Reference Range Interpretation Comments Hct (test code = Hct) 25.7 42.0-54.[address] [facility] HospitalUlzlgfwJHLBUXDNXG5026-13-80 20:37:00 Test Item Value Reference Range Interpretation Comments MCV (test code = MCV) 89.0 80.0-94.[address] [facility] HospitalImvedqkYBVHXMAWRC4391-33-76 20:37:00 Test Item Value Reference Range Interpretation Comments MCH (test code = MCH) 29.1 pg 27.0-31.[address] [facility] HospitalCjfdjrzOWKTPAIOHS2802-05-41 20:37:00 Test Item Value Reference Range Interpretation Comments MCHC (test code = MCHC) 32.6 32.0-36.[address] [facility] HospitalDidtnheYVFBHJEMXX1440-89-77 20:37:00 Test Item Value Reference Range Interpretation Comments RDW (test code = RDW) 17.7 11.5-14.[address] [facility] HospitalTmxkockYNPAFYVCFW8617-04-87 20:37:00 Test Item Value Reference Range Interpretation Comments Platelet (test code = Platelet) 346 133-[address] [facility] HospitalIjmdbtkZLWYZIQBDJ8773-34-35 20:37:00 Test Item Value Reference Range Interpretation Comments MPV (test code = MPV) 6.7 7.4-10.4 [place] [address]-11-11 20:37:00 Test Item Value Reference Range Interpretation Comments Segs (test code = Segs) 81.8 45.0-75.0 [place] 087812-11-11 20:37:00 Test Item Value Reference Range Interpretation Comments Lymphocytes (test code = Lymphocytes) 5.6 20.0-40.0 [place] [address]-11-11 20:37:00 Test Item Value Reference Range Interpretation Comments Monocytes (test code = Monocytes) 6.8 2.0-12.0 [place] [address]-11-11 20:37:00 Test Item Value Reference Range Interpretation Comments Eosinophils (test code = 5.3 See_Comment [A utomated message] The Eosinophils) system which ge nerated this result tra nsmitted reference range : <=4.0. The reference r za was not used to int erpret this result as normal/abnormal . [place] [address]-11-11 20:37:00 Test Item Value Reference Range Interpretation Comments Basophils (test code = 0.5 See_Comment [Aut omated message] The Basophils) system which ge nerated this result tra nsmitted reference range : <=1.0. The reference r za was not used to int erpret this result as normal/abnormal . [place] 087812-11-11 20:37:00 Test Item Value Reference Range Interpretation Comments Neutrophils # (test code = Neutrophils 8.0 1.5-8.1 #) [place] [address]-11-11 20:37:00 Test Item Value Reference Range Interpretation Comments Lymphocytes # (test code = Lymphocytes 0.5 1.0-5.5 #) [place] [address]-11-11 20:37:00 Test Item Value Reference Range Interpretation Comments Monocytes # (test code 0.7 See_Comment [Aut omated message] The = Monocytes #) system which generated this result tra nsmitted reference range : <=0.8. The reference r za was not used to int erpret this result as normal/abnormal . [place] [address]-11-11 20:37:00 Test Item Value Reference Range Interpretation Comments Eosinophils # (test code 0.5 See_Comment [A utomated message] The = Eosinophils #) system whic h generated this result tra nsmitted reference range : <=0.5. The reference r za was not used to int erpret this result as normal/abnormal . [facility] HospitalTbbjzkkLLWVXOFUM1748-23-60 20:37:00 Test Item Value Reference Range Interpretation Comments Glucose Lvl (test code = Glucose Lvl) 109 70-99 [facility] HospitalMtycrjuSFUZUNQFS8124-85-54 20:37:00 Test Item Value Reference Range Interpretation Comments BUN (test code = BUN) 35 7-22 [facility] HospitalFdrmfjbWJZNEWKVF0169-99-57 20:37:00 Test Item Value Reference Range Interpretation Comments Creatinine Lvl (test code = Creatinine 3.70 0.50-1.40 Lvl) [facility] HospitalWoddvhjNYOMJQWBJ3603-44-73 20:37:00 Test Item Value Reference Range Interpretation Comments Sodium Lvl (test code = Sodium Lvl) 142 135-145 [facility] HospitalHvlmxwlNUJEGXVJO2833-81-99 20:37:00 Test Item Value Reference Range Interpretation Comments Potassium Lvl (test code = Potassium 3.9 3.5-5.1 Lvl) [facility] HospitalAahfmntAGLRXIOMY0590-37-98 20:37:00 Test Item Value Reference Range Interpretation Comments Chloride Lvl (test code = Chloride Lvl) 108 95-109 [facility] HospitalUlycnxcBZGPMQEQH4786-54-16 20:37:00 Test Item Value Reference Range Interpretation Comments CO2 (test code = CO2) 26 24-32 [facility] HospitalJjeslhwQTZNQANKZ8898-17-89 20:37:00 Test Item Value Reference Range Interpretation Comments Calcium Lvl (test code = Calcium Lvl) 7.8 8.5-10.5 [facility] HospitalZsbzjcwBJHWMEXMV1795-95-65 20:37:00 Test Item Value Reference Range Interpretation Comments AGAP (test code = AGAP) 11.9 10.0-20.0 [facility] HospitalNiamdgoCBDSBOAXD5285-39-54 20:37:00 Test Item Value Reference Range Interpretation Comments eGFR (test code = eGFR) [address] [facility] HospitalWnwaqrbTLPQEQRXSL6487-70-74 20:37:00 Test Item Value Reference Range Interpretation Comments WBC X 10x3 (test code = WBC X 10x3) 9.8 3.7-10.[address] [facility] HospitalXlwhqoeTKJWEEYWNW2575-86-73 20:37:00 Test Item Value Reference Range Interpretation Comments RBC X 10x6 (test code = RBC X 10x6) 2.88 4.70-6.[address] [facility] HospitalLvzhazuIUBFQTFZDY2319-36-45 20:37:00 Test Item Value Reference Range Interpretation Comments Hgb (test code = Hgb) 8.4 14.0-18.[address] [facility] HospitalMahhziaQIOYPTYFON4325-38-50 20:37:00 Test Item Value Reference Range Interpretation Comments Hct (test code = Hct) 25.7 42.0-54.[address] [facility] HospitalXidswyeHGRPDWMIET9844-47-44 20:37:00 Test Item Value Reference Range Interpretation Comments MCV (test code = MCV) 89.0 80.0-94.[address] [facility] HospitalKffmfvtMXEYIOULYI5177-85-44 20:37:00 Test Item Value Reference Range Interpretation Comments MCH (test code = MCH) 29.1 pg 27.0-31.[address] [facility] HospitalXismxijQZWBPCZIQN3364-29-00 20:37:00 Test Item Value Reference Range Interpretation Comments MCHC (test code = MCHC) 32.6 32.0-36.[address] [facility] HospitalNmurfttOUHUMGRKAZ6014-92-28 20:37:00 Test Item Value Reference Range Interpretation Comments RDW (test code = RDW) 17.7 11.5-14.[address] [facility] HospitalBeuhufjDVVYJTGMOL6120-17-49 20:37:00 Test Item Value Reference Range Interpretation Comments Platelet (test code = Platelet) 346 133-[address] [facility] HospitalAlvmftbIMSGCLLNPN5920-48-96 20:37:00 Test Item Value Reference Range Interpretation Comments MPV (test code = MPV) 6.7 7.4-10.4 [place] 087812-11-11 20:37:00 Test Item Value Reference Range Interpretation Comments Segs (test code = Segs) 81.8 45.0-75.0 [place] 087812-11-11 20:37:00 Test Item Value Reference Range Interpretation Comments Lymphocytes (test code = Lymphocytes) 5.6 20.0-40.0 [place] 087812-11-11 20:37:00 Test Item Value Reference Range Interpretation Comments Monocytes (test code = Monocytes) 6.8 2.0-12.[address] [facility] HospitalHxlbbcuPWIMDOMWOZ4551-92-37 20:37:00 Test Item Value Reference Range Interpretation Comments Eosinophils (test code = 5.3 See_Comment [A utomated message] The Eosinophils) system which ge nerated this result tra nsmitted reference range : <=4.0. The reference r za was not used to int erpret this result as normal/abnormal . [facility] HospitalVkftpajKFYVTOREKS3682-63-26 20:37:00 Test Item Value Reference Range Interpretation Comments Basophils (test code = 0.5 See_Comment [Aut omated message] The Basophils) system which ge nerated this result tra nsmitted reference range : <=1.0. The reference r za was not used to int erpret this result as normal/abnormal . [facility] HospitalZuobxxxSVNBOYKTOF5230-80-74 20:37:00 Test Item Value Reference Range Interpretation Comments Neutrophils # (test code = Neutrophils 8.0 1.5-8.1 #) [facility] HospitalTdauiriARJLRQGTKV7373-32-35 20:37:00 Test Item Value Reference Range Interpretation Comments Lymphocytes # (test code = Lymphocytes 0.5 1.0-5.5 #) [facility] HospitalDlqwwkxYZGPHZXAMT6033-43-30 20:37:00 Test Item Value Reference Range Interpretation Comments Monocytes # (test code 0.7 See_Comment [Aut omated message] The = Monocytes #) system which generated this result tra nsmitted reference range : <=0.8. The reference r za was not used to int erpret this result as normal/abnormal . [facility] HospitalJmwiddgWLDCDGQCJG7034-44-75 20:37:00 Test Item Value Reference Range Interpretation Comments Eosinophils # (test code 0.5 See_Comment [A utomated message] The = Eosinophils #) system whic h generated this result tra nsmitted reference range : <=0.5. The reference r za was not used to int erpret this result as normal/abnormal . [facility] HospitalFesherfVGEIYLVMH8246-88-53 20:37:00 Test Item Value Reference Range Interpretation Comments Glucose Lvl (test code = Glucose Lvl) 109 70-99 [facility] HospitalZpcflfvLBRQYKUKA5868-73-98 20:37:00 Test Item Value Reference Range Interpretation Comments BUN (test code = BUN) 35 7-22 [facility] HospitalLucrtnwIWAFYVCVU8535-97-71 20:37:00 Test Item Value Reference Range Interpretation Comments Creatinine Lvl (test code = Creatinine 3.70 0.50-1.40 Lvl) [facility] HospitalIgadzeiMERQMRXSV6117-47-94 20:37:00 Test Item Value Reference Range Interpretation Comments Sodium Lvl (test code = Sodium Lvl) 142 135-145 [facility] HospitalUvmvzwaDUEMFOPVU1820-12-32 20:37:00 Test Item Value Reference Range Interpretation Comments Potassium Lvl (test code = Potassium 3.9 3.5-5.1 Lvl) [facility] HospitalGsfnnuiGXZTUWUHN0110-83-56 20:37:00 Test Item Value Reference Range Interpretation Comments Chloride Lvl (test code = Chloride Lvl) 108 95-109 [facility] HospitalDqzfdcaGFEDEKQFM8617-72-13 20:37:00 Test Item Value Reference Range Interpretation Comments CO2 (test code = CO2) 26 24-32 [facility] HospitalAsfpangFWJONFAUC7024-05-04 20:37:00 Test Item Value Reference Range Interpretation Comments Calcium Lvl (test code = Calcium Lvl) 7.8 8.5-10.5 [facility] HospitalVccttdkCSAVXRTRN6332-73-22 20:37:00 Test Item Value Reference Range Interpretation Comments AGAP (test code = AGAP) 11.9 10.0-20.0 [facility] HospitalZjmoicyLUKIGRFIG2370-40-01 20:37:00 Test Item Value Reference Range Interpretation Comments eGFR (test code = eGFR) [address] [facility] HospitalDnnwewgVLSHTFYHYY1428-32-10 20:37:00 Test Item Value Reference Range Interpretation Comments WBC X 10x3 (test code = WBC X 10x3) 9.8 3.7-10.[address] [facility] HospitalOaeyjvyZVARRQEMQW8956-86-03 20:37:00 Test Item Value Reference Range Interpretation Comments RBC X 10x6 (test code = RBC X 10x6) 2.88 4.70-6.[address] [facility] HospitalCtuacckKZYYBEHZCD5619-61-42 20:37:00 Test Item Value Reference Range Interpretation Comments Hgb (test code = Hgb) 8.4 14.0-18.[address] [facility] HospitalZwmbnuvQODNZWELFT2523-09-32 20:37:00 Test Item Value Reference Range Interpretation Comments Hct (test code = Hct) 25.7 42.0-54.[address] [facility] HospitalOyczsovZWLFDPVEPG4630-22-55 20:37:00 Test Item Value Reference Range Interpretation Comments MCV (test code = MCV) 89.0 80.0-94.[address] [facility] HospitalFngcbngXBWOSOYWSY9006-03-64 20:37:00 Test Item Value Reference Range Interpretation Comments MCH (test code = MCH) 29.1 pg 27.0-31.[address] [facility] HospitalZycnrhnZYYEVLMQPV0607-42-79 20:37:00 Test Item Value Reference Range Interpretation Comments MCHC (test code = MCHC) 32.6 32.0-36.[address] [facility] HospitalPfgmsemOZBCEUOOVQ6863-71-78 20:37:00 Test Item Value Reference Range Interpretation Comments RDW (test code = RDW) 17.7 11.5-14.[address] [facility] HospitalXyvhwnfUITYMRLPGT8282-52-37 20:37:00 Test Item Value Reference Range Interpretation Comments Platelet (test code = Platelet) 346 133-[address] [facility] HospitalGvnsmpdJQJOXRQDTI7574-68-66 20:37:00 Test Item Value Reference Range Interpretation Comments MPV (test code = MPV) 6.7 7.4-10.4 [place] 087812-11-11 20:37:00 Test Item Value Reference Range Interpretation Comments Segs (test code = Segs) 81.8 45.0-75.[address] [facility] HospitalOoqbvhlGVPTDFSPUZ1782-01-56 20:37:00 Test Item Value Reference Range Interpretation Comments Lymphocytes (test code = Lymphocytes) 5.6 20.0-40.[address] [facility] HospitalVuiowvkKFLTFFCEVD3267-34-67 20:37:00 Test Item Value Reference Range Interpretation Comments Monocytes (test code = Monocytes) 6.8 2.0-12.[address] [facility] HospitalWktvnqxIWMBSFNFIC5475-19-56 20:37:00 Test Item Value Reference Range Interpretation Comments Eosinophils (test code = 5.3 See_Comment [A utomated message] The Eosinophils) system which ge nerated this result tra nsmitted reference range : <=4.0. The reference r za was not used to int erpret this result as normal/abnormal . [facility] HospitalLbpvdwzQIQZCCPLMX0104-21-13 20:37:00 Test Item Value Reference Range Interpretation Comments Basophils (test code = 0.5 See_Comment [Aut omated message] The Basophils) system which ge nerated this result tra nsmitted reference range : <=1.0. The reference r za was not used to int erpret this result as normal/abnormal . [facility] HospitalVrdqcwvHZSUUGEDTH1562-33-06 20:37:00 Test Item Value Reference Range Interpretation Comments Neutrophils # (test code = Neutrophils 8.0 1.5-8.1 #) [place] 087812-11-11 20:37:00 Test Item Value Reference Range Interpretation Comments Lymphocytes # (test code = Lymphocytes 0.5 1.0-5.5 #) [facility] HospitalDqpchyjZSZVAJBAKK4220-11-15 20:37:00 Test Item Value Reference Range Interpretation Comments Monocytes # (test code 0.7 See_Comment [Aut omated message] The = Monocytes #) system which generated this result tra nsmitted reference range : <=0.8. The reference r za was not used to int erpret this result as normal/abnormal . [facility] HospitalRxgvenpAXBPEWLYQN8709-96-64 20:37:00 Test Item Value Reference Range Interpretation Comments Eosinophils # (test code 0.5 See_Comment [A utomated message] The = Eosinophils #) system whic h generated this result tra nsmitted reference range : <=0.5. The reference r za was not used to int erpret this result as normal/abnormal . [facility] HospitalWucghghFBPLPREOL9796-82-36 20:37:00 Test Item Value Reference Range Interpretation Comments Glucose Lvl (test code = Glucose Lvl) 109 70-99 [facility] HospitalGjpwkqoYRJAXFCGO7345-38-36 20:37:00 Test Item Value Reference Range Interpretation Comments BUN (test code = BUN) 35 7-22 [facility] HospitalEjucaftGARQPSROC4157-08-65 20:37:00 Test Item Value Reference Range Interpretation Comments Creatinine Lvl (test code = Creatinine 3.70 0.50-1.40 Lvl) [facility] HospitalEelayprIEJVESOBX3807-12-47 20:37:00 Test Item Value Reference Range Interpretation Comments Sodium Lvl (test code = Sodium Lvl) 142 135-145 [facility] HospitalIyjteaxASOKOWANA3275-62-35 20:37:00 Test Item Value Reference Range Interpretation Comments Potassium Lvl (test code = Potassium 3.9 3.5-5.1 Lvl) [facility] HospitalVpouyehSXCLMTGVN8405-29-06 20:37:00 Test Item Value Reference Range Interpretation Comments Chloride Lvl (test code = Chloride Lvl) 108 95-109 [facility] HospitalToxsxnsGXWUENKCI4300-78-93 20:37:00 Test Item Value Reference Range Interpretation Comments CO2 (test code = CO2) 26 24-32 [facility] HospitalNgxmsxzCWWKVFNPZ8609-28-79 20:37:00 Test Item Value Reference Range Interpretation Comments Calcium Lvl (test code = Calcium Lvl) 7.8 8.5-10.5 [facility] HospitalMhiwamcKDDTZYBVA0486-56-93 20:37:00 Test Item Value Reference Range Interpretation Comments AGAP (test code = AGAP) 11.9 10.0-20.0 [facility] HospitalLjeizxnRSTPTOCVS3899-34-40 20:37:00 Test Item Value Reference Range Interpretation Comments eGFR (test code = eGFR) [address] [facility] HospitalBbfwpkmVFYJYCCBVZ4428-72-21 20:37:00 Test Item Value Reference Range Interpretation Comments WBC X 10x3 (test code = WBC X 10x3) 9.8 3.7-10.[address] [facility] HospitalSpinwmbTIFSQOPUVP4406-99-61 20:37:00 Test Item Value Reference Range Interpretation Comments RBC X 10x6 (test code = RBC X 10x6) 2.88 4.70-6.[address] [facility] HospitalSjjtvihASVYBWKNDW4748-51-03 20:37:00 Test Item Value Reference Range Interpretation Comments Hgb (test code = Hgb) 8.4 14.0-18.[address] [facility] HospitalUvqxcbpJAKUCIQJTM6255-16-51 20:37:00 Test Item Value Reference Range Interpretation Comments Hct (test code = Hct) 25.7 42.0-54.[address] [facility] HospitalVwerydxVQGSTDNQUN4315-11-75 20:37:00 Test Item Value Reference Range Interpretation Comments MCV (test code = MCV) 89.0 80.0-94.[address] [facility] HospitalPvmfyowZNOPGDWEOV4032-49-45 20:37:00 Test Item Value Reference Range Interpretation Comments MCH (test code = MCH) 29.1 pg 27.0-31.[address] [facility] HospitalLydbmyjBXZONNQHJS0727-29-37 20:37:00 Test Item Value Reference Range Interpretation Comments MCHC (test code = MCHC) 32.6 32.0-36.[address] [facility] HospitalXgtfzbfIJTGILTLWY3174-68-25 20:37:00 Test Item Value Reference Range Interpretation Comments RDW (test code = RDW) 17.7 11.5-14.[address] [facility] HospitalZasgmiqGHUSPIHLWJ2232-63-49 20:37:00 Test Item Value Reference Range Interpretation Comments Platelet (test code = Platelet) 346 133-[address] [facility] HospitalIeccwvkZZMHSRTWTH8109-49-78 20:37:00 Test Item Value Reference Range Interpretation Comments MPV (test code = MPV) 6.7 7.4-10.4 [place] 087812-11-11 20:37:00 Test Item Value Reference Range Interpretation Comments Segs (test code = Segs) 81.8 45.0-75.0 [place] 087812-11-11 20:37:00 Test Item Value Reference Range Interpretation Comments Lymphocytes (test code = Lymphocytes) 5.6 20.0-40.0 [place] 087812-11-11 20:37:00 Test Item Value Reference Range Interpretation Comments Monocytes (test code = Monocytes) 6.8 2.0-12.0 [place] [address]-11-11 20:37:00 Test Item Value Reference Range Interpretation Comments Eosinophils (test code = 5.3 See_Comment [A utomated message] The Eosinophils) system which ge nerated this result tra nsmitted reference range : <=4.0. The reference r za was not used to int erpret this result as normal/abnormal . [place] 087812-11-11 20:37:00 Test Item Value Reference Range Interpretation Comments Basophils (test code = 0.5 See_Comment [Aut omated message] The Basophils) system which ge nerated this result tra nsmitted reference range : <=1.0. The reference r za was not used to int erpret this result as normal/abnormal . [place] 087812-11-11 20:37:00 Test Item Value Reference Range Interpretation Comments Neutrophils # (test code = Neutrophils 8.0 1.5-8.1 #) [place] 087812-11-11 20:37:00 Test Item Value Reference Range Interpretation Comments Lymphocytes # (test code = Lymphocytes 0.5 1.0-5.5 #) [place] [address]-11-11 20:37:00 Test Item Value Reference Range Interpretation Comments Monocytes # (test code 0.7 See_Comment [Aut omated message] The = Monocytes #) system which generated this result tra nsmitted reference range : <=0.8. The reference r za was not used to int erpret this result as normal/abnormal . [place] [address]-11-11 20:37:00 Test Item Value Reference Range Interpretation Comments Eosinophils # (test code 0.5 See_Comment [A utomated message] The = Eosinophils #) system whic h generated this result tra nsmitted reference range : <=0.5. The reference r za was not used to int erpret this result as normal/abnormal . [facility] HospitalHpjstqtVWFPWXXWT9280-94-15 20:37:00 Test Item Value Reference Range Interpretation Comments Glucose Lvl (test code = Glucose Lvl) 109 70-99 [facility] HospitalKeipzqrQWBTXJFSW4737-52-20 20:37:00 Test Item Value Reference Range Interpretation Comments BUN (test code = BUN) 35 7-22 [facility] HospitalGibiuosYSXUVBHLB3546-88-99 20:37:00 Test Item Value Reference Range Interpretation Comments Creatinine Lvl (test code = Creatinine 3.70 0.50-1.40 Lvl) [facility] HospitalCicaaevKAJPPAPUW5197-76-15 20:37:00 Test Item Value Reference Range Interpretation Comments Sodium Lvl (test code = Sodium Lvl) 142 135-145 [facility] HospitalDnigmnqEOZKGUANU8332-48-20 20:37:00 Test Item Value Reference Range Interpretation Comments Potassium Lvl (test code = Potassium 3.9 3.5-5.1 Lvl) [facility] HospitalPtiuaqjEUBTWSHDY1199-82-31 20:37:00 Test Item Value Reference Range Interpretation Comments Chloride Lvl (test code = Chloride Lvl) 108 95-109 [facility] HospitalYrnilinNBFWFVTXQ8354-85-49 20:37:00 Test Item Value Reference Range Interpretation Comments CO2 (test code = CO2) 26 24-32 [facility] HospitalNqjjpuzAJZTSJRYG3725-57-57 20:37:00 Test Item Value Reference Range Interpretation Comments Calcium Lvl (test code = Calcium Lvl) 7.8 8.5-10.5 [facility] HospitalFosbronEAMWJRLWQ6845-08-89 20:37:00 Test Item Value Reference Range Interpretation Comments AGAP (test code = AGAP) 11.9 10.0-20.0 [facility] HospitalXjdwcltZRBXPAPGC4344-72-37 20:37:00 Test Item Value Reference Range Interpretation Comments eGFR (test code = eGFR) [address] [facility] HospitalRffksyuGDZLROKIVA2788-09-99 20:37:00 Test Item Value Reference Range Interpretation Comments WBC X 10x3 (test code = WBC X 10x3) 9.8 3.7-10.[address] [facility] HospitalVbqedqzYUODMYQHFD0364-22-43 20:37:00 Test Item Value Reference Range Interpretation Comments RBC X 10x6 (test code = RBC X 10x6) 2.88 4.70-6.[address] HospitalBikxaidSBBXJZOKFR7612-57-75 20:37:00 Test Item Value Reference Range Interpretation Comments Hgb (test code = Hgb) 8.4 14.0-18.0 [place] 087812-11-11 20:37:00 Test Item Value Reference Range Interpretation Comments Hct (test code = Hct) 25.7 42.0-54.[address] [facility] HospitalZhmcenkPTKDYFIKRC8369-33-88 20:37:00 Test Item Value Reference Range Interpretation Comments MCV (test code = MCV) 89.0 80.0-94.[address] HospitalYkoofbxHDDNBNCYUI8857-42-02 20:37:00 Test Item Value Reference Range Interpretation Comments MCH (test code = MCH) 29.1 pg 27.0-31.[address] [facility] HospitalAgtdaanHUFMIIQHBU9128-52-43 20:37:00 Test Item Value Reference Range Interpretation Comments MCHC (test code = MCHC) 32.6 32.0-36.0 [place] 087812-11-11 20:37:00 Test Item Value Reference Range Interpretation Comments RDW (test code = RDW) 17.7 11.5-14.5 [place] 087812-11-11 20:37:00 Test Item Value Reference Range Interpretation Comments Platelet (test code = Platelet) 346 133-[address] [facility] HospitalFsboneuAHTXWTSUSK1923-84-54 20:37:00 Test Item Value Reference Range Interpretation Comments MPV (test code = MPV) 6.7 7.4-10.4 [place] 087812-11-11 20:37:00 Test Item Value Reference Range Interpretation Comments Segs (test code = Segs) 81.8 45.0-75.0 [place] 087812-11-11 20:37:00 Test Item Value Reference Range Interpretation Comments Lymphocytes (test code = Lymphocytes) 5.6 20.0-40.0 [place] 087812-11-11 20:37:00 Test Item Value Reference Range Interpretation Comments Monocytes (test code = Monocytes) 6.8 2.0-12.0 [place] 087812-11-11 20:37:00 Test Item Value Reference Range Interpretation Comments Eosinophils (test code = 5.3 See_Comment [A utomated message] The Eosinophils) system which ge nerated this result tra nsmitted reference range : <=4.0. The reference r za was not used to int erpret this result as normal/abnormal . [facility] HospitalAdpcqnkYVOOTYVVAF0535-20-42 20:37:00 Test Item Value Reference Range Interpretation Comments Basophils (test code = 0.5 See_Comment [Aut omated message] The Basophils) system which ge nerated this result tra nsmitted reference range : <=1.0. The reference r za was not used to int erpret this result as normal/abnormal . [facility] HospitalPvveeszNDCZQMJPPV7300-94-38 20:37:00 Test Item Value Reference Range Interpretation Comments Neutrophils # (test code = Neutrophils 8.0 1.5-8.1 #) [facility] HospitalVbelpvxUXLSDANUUV9420-31-84 20:37:00 Test Item Value Reference Range Interpretation Comments Lymphocytes # (test code = Lymphocytes 0.5 1.0-5.5 #) [facility] HospitalPytqevwTOVJLHWFZI9753-38-49 20:37:00 Test Item Value Reference Range Interpretation Comments Monocytes # (test code 0.7 See_Comment [Aut omated message] The = Monocytes #) system which generated this result tra nsmitted reference range : <=0.8. The reference r az was not used to int erpret this result as normal/abnormal . [facility] HospitalCyyoppqRNMRDUKGHW9994-77-85 20:37:00 Test Item Value Reference Range Interpretation Comments Eosinophils # (test code 0.5 See_Comment [A utomated message] The = Eosinophils #) system whic h generated this result tra nsmitted reference range : <=0.5. The reference r za was not used to int erpret this result as normal/abnormal . [facility] HospitalNpzqwuhOOYHQXBKM4837-78-00 20:37:00 Test Item Value Reference Range Interpretation Comments Glucose Lvl (test code = Glucose Lvl) 109 70-99 [facility] HospitalDfbwbhhZAHFMXWKL5351-87-44 20:37:00 Test Item Value Reference Range Interpretation Comments BUN (test code = BUN) 35 7-22 [facility] HospitalVgfrmpbTNQTIZFCZ2513-32-79 20:37:00 Test Item Value Reference Range Interpretation Comments Creatinine Lvl (test code = Creatinine 3.70 0.50-1.40 Lvl) [facility] HospitalKtsjepaEMKCODMRH1759-37-87 20:37:00 Test Item Value Reference Range Interpretation Comments Sodium Lvl (test code = Sodium Lvl) 142 135-145 [facility] HospitalCicsshpDXODZFPOZ8024-50-88 20:37:00 Test Item Value Reference Range Interpretation Comments Potassium Lvl (test code = Potassium 3.9 3.5-5.1 Lvl) [facility] HospitalNlckltvMBTUYPFDJ7747-86-33 20:37:00 Test Item Value Reference Range Interpretation Comments Chloride Lvl (test code = Chloride Lvl) 108 95-109 [facility] HospitalVatikplLITZQPUUR0665-59-37 20:37:00 Test Item Value Reference Range Interpretation Comments CO2 (test code = CO2) 26 24-32 [facility] HospitalSlycafzEQLDOIGLZ5174-67-10 20:37:00 Test Item Value Reference Range Interpretation Comments Calcium Lvl (test code = Calcium Lvl) 7.8 8.5-10.5 [facility] HospitalBtctczfQQWLYRGNX5555-66-60 20:37:00 Test Item Value Reference Range Interpretation Comments AGAP (test code = AGAP) 11.9 10.0-20.0 [facility] HospitalVzwjqumWUULNPURV3915-06-52 20:37:00 Test Item Value Reference Range Interpretation Comments eGFR (test code = eGFR) [address] [facility] HospitalPigmpbrPYVJOGXEZO2686-34-82 20:37:00 Test Item Value Reference Range Interpretation Comments WBC X 10x3 (test code = WBC X 10x3) 9.8 3.7-10.[address] [facility] HospitalAcujnudCWOAYSIXHD8631-07-01 20:37:00 Test Item Value Reference Range Interpretation Comments RBC X 10x6 (test code = RBC X 10x6) 2.88 4.70-6.[address] [facility] HospitalTgtvtecLTEEXKZZIK2973-79-94 20:37:00 Test Item Value Reference Range Interpretation Comments Hgb (test code = Hgb) 8.4 14.0-18.[address] [facility] HospitalBofwkimLCGYYGLGMU9542-71-78 20:37:00 Test Item Value Reference Range Interpretation Comments Hct (test code = Hct) 25.7 42.0-54.[address] [facility] HospitalIxewokpSYBLWEYQKF5313-56-05 20:37:00 Test Item Value Reference Range Interpretation Comments MCV (test code = MCV) 89.0 80.0-94.[address] [facility] HospitalKfpyclwBEVDAJYMEL7334-77-84 20:37:00 Test Item Value Reference Range Interpretation Comments MCH (test code = MCH) 29.1 pg 27.0-31.[address] [facility] HospitalCdeppgtIJKNIQMXLF3536-26-21 20:37:00 Test Item Value Reference Range Interpretation Comments MCHC (test code = MCHC) 32.6 32.0-36.0 [place] 087812-11-11 20:37:00 Test Item Value Reference Range Interpretation Comments RDW (test code = RDW) 17.7 11.5-14.[address] [facility] HospitalFnnanplZWMZDLGMZR4346-51-05 20:37:00 Test Item Value Reference Range Interpretation Comments Platelet (test code = Platelet) 346 133-[address] [facility] HospitalBrzersvQULPGUKMGA0558-50-76 20:37:00 Test Item Value Reference Range Interpretation Comments MPV (test code = MPV) 6.7 7.4-10.4 [place] 087812-11-11 20:37:00 Test Item Value Reference Range Interpretation Comments Segs (test code = Segs) 81.8 45.0-75.[address] [facility] HospitalPqooxohLMKCHIBHVK8553-90-52 20:37:00 Test Item Value Reference Range Interpretation Comments Lymphocytes (test code = Lymphocytes) 5.6 20.0-40.[address] [facility] HospitalNkqvpzpUMGOSJQCYA0161-00-00 20:37:00 Test Item Value Reference Range Interpretation Comments Monocytes (test code = Monocytes) 6.8 2.0-12.[address] [facility] HospitalTisiokgJQCCJIMCOU2979-14-07 20:37:00 Test Item Value Reference Range Interpretation Comments Eosinophils (test code = 5.3 See_Comment [A utomated message] The Eosinophils) system which ge nerated this result tra nsmitted reference range : <=4.0. The reference r za was not used to int erpret this result as normal/abnormal . [place] 087812-11-11 20:37:00 Test Item Value Reference Range Interpretation Comments Basophils (test code = 0.5 See_Comment [Aut omated message] The Basophils) system which ge nerated this result tra nsmitted reference range : <=1.0. The reference r za was not used to int erpret this result as normal/abnormal . [place] 087812-11-11 20:37:00 Test Item Value Reference Range Interpretation Comments Neutrophils # (test code = Neutrophils 8.0 1.5-8.1 #) [facility] HospitalOiqzinaUCMLWCJDMN9156-80-60 20:37:00 Test Item Value Reference Range Interpretation Comments Lymphocytes # (test code = Lymphocytes 0.5 1.0-5.5 #) [facility] HospitalHxusxezTINHSXNKAH5955-00-33 20:37:00 Test Item Value Reference Range Interpretation Comments Monocytes # (test code 0.7 See_Comment [Aut omated message] The = Monocytes #) system which generated this result tra nsmitted reference range : <=0.8. The reference r za was not used to int erpret this result as normal/abnormal . [facility] HospitalBmnnykiTORQBGELYU1007-88-65 20:37:00 Test Item Value Reference Range Interpretation Comments Eosinophils # (test code 0.5 See_Comment [A utomated message] The = Eosinophils #) system whic h generated this result tra nsmitted reference range : <=0.5. The reference r za was not used to int erpret this result as normal/abnormal . [facility] HospitalIdnfdipLLZLLALAQ4660-24-01 20:37:00 Test Item Value Reference Range Interpretation Comments Glucose Lvl (test code = Glucose Lvl) 109 70-99 [facility] HospitalYttxnvbXMUJVHRAZ9084-53-05 20:37:00 Test Item Value Reference Range Interpretation Comments BUN (test code = BUN) 35 7-22 [facility] HospitalXadpjipXQCFRRTVU7386-30-64 20:37:00 Test Item Value Reference Range Interpretation Comments Creatinine Lvl (test code = Creatinine 3.70 0.50-1.40 Lvl) [facility] HospitalUlchuvjKDJGXVHRE6002-45-24 20:37:00 Test Item Value Reference Range Interpretation Comments Sodium Lvl (test code = Sodium Lvl) 142 135-145 [facility] HospitalPfmuctnXELVCNHZY2750-28-58 20:37:00 Test Item Value Reference Range Interpretation Comments Potassium Lvl (test code = Potassium 3.9 3.5-5.1 Lvl) [facility] HospitalDqqiitqEUKZJXAVD4568-52-75 20:37:00 Test Item Value Reference Range Interpretation Comments Chloride Lvl (test code = Chloride Lvl) 108 95-109 [facility] HospitalNghxiaiDCRHAMLCJ8232-92-91 20:37:00 Test Item Value Reference Range Interpretation Comments CO2 (test code = CO2) 26 24-32 [facility] HospitalWulrchgOJZVTWAUS0947-19-14 20:37:00 Test Item Value Reference Range Interpretation Comments Calcium Lvl (test code = Calcium Lvl) 7.8 8.5-10.5 [facility] HospitalHyjpswwHRTDNDLUR5999-65-06 20:37:00 Test Item Value Reference Range Interpretation Comments AGAP (test code = AGAP) 11.9 10.0-20.0 [facility] HospitalDsmfddmEDVZQBBUI6666-69-52 20:37:00 Test Item Value Reference Range Interpretation Comments eGFR (test code = eGFR) [address] [facility] HospitalTpqepouWYDWCNWDQF8128-80-45 20:37:00 Test Item Value Reference Range Interpretation Comments WBC X 10x3 (test code = WBC X 10x3) 9.8 3.7-10.[address] [facility] HospitalVdopcgmJPUBJMFLJM3639-57-86 20:37:00 Test Item Value Reference Range Interpretation Comments RBC X 10x6 (test code = RBC X 10x6) 2.88 4.70-6.[address] [facility] HospitalTgajepyDLROYSZFHL2485-51-22 20:37:00 Test Item Value Reference Range Interpretation Comments Hgb (test code = Hgb) 8.4 14.0-18.[address] [facility] HospitalHrqpeljJVVIAYGBHR3259-64-98 20:37:00 Test Item Value Reference Range Interpretation Comments Hct (test code = Hct) 25.7 42.0-54.[address] [facility] HospitalBncdjtzULOGFGFXRN8918-52-01 20:37:00 Test Item Value Reference Range Interpretation Comments MCV (test code = MCV) 89.0 80.0-94.[address] [facility] HospitalXsxlrtaYPVLSOAZEW5703-70-40 20:37:00 Test Item Value Reference Range Interpretation Comments MCH (test code = MCH) 29.1 pg 27.0-31.[address] [facility] HospitalUrzlirlCCPJNIHTIS6065-86-54 20:37:00 Test Item Value Reference Range Interpretation Comments MCHC (test code = MCHC) 32.6 32.0-36.[address] [facility] HospitalDremoyoUQXYJWICDH5385-81-08 20:37:00 Test Item Value Reference Range Interpretation Comments RDW (test code = RDW) 17.7 11.5-14.[address] [facility] HospitalWsxnwhoIHEADTTIVH9849-80-53 20:37:00 Test Item Value Reference Range Interpretation Comments Platelet (test code = Platelet) 346 133-[address] [facility] HospitalKmpmjvaAFSECQFVUT0624-13-87 20:37:00 Test Item Value Reference Range Interpretation Comments MPV (test code = MPV) 6.7 7.4-10.4 [place] 087812-11-11 20:37:00 Test Item Value Reference Range Interpretation Comments Segs (test code = Segs) 81.8 45.0-75.0 [place] 087812-11-11 20:37:00 Test Item Value Reference Range Interpretation Comments Lymphocytes (test code = Lymphocytes) 5.6 20.0-40.0 [place] 087812-11-11 20:37:00 Test Item Value Reference Range Interpretation Comments Monocytes (test code = Monocytes) 6.8 2.0-12.0 [place] [address]-11-11 20:37:00 Test Item Value Reference Range Interpretation Comments Eosinophils (test code = 5.3 See_Comment [A utomated message] The Eosinophils) system which ge nerated this result tra nsmitted reference range : <=4.0. The reference r za was not used to int erpret this result as normal/abnormal . [place] 087812-11-11 20:37:00 Test Item Value Reference Range Interpretation Comments Basophils (test code = 0.5 See_Comment [Aut omated message] The Basophils) system which ge nerated this result tra nsmitted reference range : <=1.0. The reference r za was not used to int erpret this result as normal/abnormal . [place] 087812-11-11 20:37:00 Test Item Value Reference Range Interpretation Comments Neutrophils # (test code = Neutrophils 8.0 1.5-8.1 #) [place] 087812-11-11 20:37:00 Test Item Value Reference Range Interpretation Comments Lymphocytes # (test code = Lymphocytes 0.5 1.0-5.5 #) [place] [address]-11-11 20:37:00 Test Item Value Reference Range Interpretation Comments Monocytes # (test code 0.7 See_Comment [Aut omated message] The = Monocytes #) system which generated this result tra nsmitted reference range : <=0.8. The reference r za was not used to int erpret this result as normal/abnormal . [place] [address]-11-11 20:37:00 Test Item Value Reference Range Interpretation Comments Eosinophils # (test code 0.5 See_Comment [A utomated message] The = Eosinophils #) system whic h generated this result tra nsmitted reference range : <=0.5. The reference r za was not used to int erpret this result as normal/abnormal . [facility] HospitalTzuoaoqZILKICKPY5872-92-47 20:37:00 Test Item Value Reference Range Interpretation Comments Glucose Lvl (test code = Glucose Lvl) 109 70-99 [facility] HospitalEpitligSQJCXQMPQ5823-74-39 20:37:00 Test Item Value Reference Range Interpretation Comments BUN (test code = BUN) 35 7-22 [facility] HospitalWlyqxznZPUEVQDKN5656-98-55 20:37:00 Test Item Value Reference Range Interpretation Comments Creatinine Lvl (test code = Creatinine 3.70 0.50-1.40 Lvl) [facility] HospitalHvptuokTAVOEFEPG5723-88-02 20:37:00 Test Item Value Reference Range Interpretation Comments Sodium Lvl (test code = Sodium Lvl) 142 135-145 [facility] HospitalUxlggjfFOHFTSPFV6877-93-12 20:37:00 Test Item Value Reference Range Interpretation Comments Potassium Lvl (test code = Potassium 3.9 3.5-5.1 Lvl) [facility] HospitalQitqtayVOQDHVVOA5212-29-98 20:37:00 Test Item Value Reference Range Interpretation Comments Chloride Lvl (test code = Chloride Lvl) 108 95-109 [facility] HospitalYkzfrbiOAIPSISLW5396-90-46 20:37:00 Test Item Value Reference Range Interpretation Comments CO2 (test code = CO2) 26 24-32 [facility] HospitalGnvnwgdOJNBUOGAO9237-77-99 20:37:00 Test Item Value Reference Range Interpretation Comments Calcium Lvl (test code = Calcium Lvl) 7.8 8.5-10.5 [facility] HospitalLndhothMXWPQRJRE5390-32-25 20:37:00 Test Item Value Reference Range Interpretation Comments AGAP (test code = AGAP) 11.9 10.0-20.0 [facility] HospitalLymxhomDVJZQJFYK5052-14-32 20:37:00 Test Item Value Reference Range Interpretation Comments eGFR (test code = eGFR) [address] [facility] HospitalWqpicyeAMYDZNGFOU9390-73-25 20:37:00 Test Item Value Reference Range Interpretation Comments WBC X 10x3 (test code = WBC X 10x3) 9.8 3.7-10.[address] [facility] HospitalNrvlsodKKBLTOFKHY5251-27-01 20:37:00 Test Item Value Reference Range Interpretation Comments RBC X 10x6 (test code = RBC X 10x6) 2.88 4.70-6.[address] HospitalXrbglksUDCEGQYHML5894-69-50 20:37:00 Test Item Value Reference Range Interpretation Comments Hgb (test code = Hgb) 8.4 14.0-18.0 [place] 087812-11-11 20:37:00 Test Item Value Reference Range Interpretation Comments Hct (test code = Hct) 25.7 42.0-54.[address] HospitalNrwxfbmBQTIRHKNAA8933-57-99 20:37:00 Test Item Value Reference Range Interpretation Comments MCV (test code = MCV) 89.0 80.0-94.0 [place] 087812-11-11 20:37:00 Test Item Value Reference Range Interpretation Comments MCH (test code = MCH) 29.1 pg 27.0-31.[address] [facility] HospitalOvxyfnpPUFXXDJNHR5708-83-18 20:37:00 Test Item Value Reference Range Interpretation Comments MCHC (test code = MCHC) 32.6 32.0-36.[address] HospitalSxiuxakCNNYFXBBYD6612-43-93 20:37:00 Test Item Value Reference Range Interpretation Comments RDW (test code = RDW) 17.7 11.5-14.[address] HospitalDzdvortVIQFDLFRZS8417-58-14 20:37:00 Test Item Value Reference Range Interpretation Comments Platelet (test code = Platelet) 346 133-[address] [facility] HospitalNnjkiynTTJKAGJQCO1562-13-81 20:37:00 Test Item Value Reference Range Interpretation Comments MPV (test code = MPV) 6.7 7.4-10.4 [place] 087812-11-11 20:37:00 Test Item Value Reference Range Interpretation Comments Segs (test code = Segs) 81.8 45.0-75.0 [place] 087812-11-11 20:37:00 Test Item Value Reference Range Interpretation Comments Lymphocytes (test code = Lymphocytes) 5.6 20.0-40.[address] [facility] HospitalBwagatpZGHOKOXULV9204-85-74 20:37:00 Test Item Value Reference Range Interpretation Comments Monocytes (test code = Monocytes) 6.8 2.0-12.0 [place] 087812-11-11 20:37:00 Test Item Value Reference Range Interpretation Comments Eosinophils (test code = 5.3 See_Comment [A utomated message] The Eosinophils) system which ge nerated this result tra nsmitted reference range : <=4.0. The reference r za was not used to int erpret this result as normal/abnormal . [facility] HospitalGozoqlzREKCPQVCMT5224-01-99 20:37:00 Test Item Value Reference Range Interpretation Comments Basophils (test code = 0.5 See_Comment [Aut omated message] The Basophils) system which ge nerated this result tra nsmitted reference range : <=1.0. The reference r za was not used to int erpret this result as normal/abnormal . [facility] HospitalVneodwkALPWNGMUUT7685-19-38 20:37:00 Test Item Value Reference Range Interpretation Comments Neutrophils # (test code = Neutrophils 8.0 1.5-8.1 #) [facility] HospitalRayonlqNUMOTKEPDO0622-86-50 20:37:00 Test Item Value Reference Range Interpretation Comments Lymphocytes # (test code = Lymphocytes 0.5 1.0-5.5 #) [facility] HospitalPjquehwCJQHYMGVBV7859-81-52 20:37:00 Test Item Value Reference Range Interpretation Comments Monocytes # (test code 0.7 See_Comment [Aut omated message] The = Monocytes #) system which generated this result tra nsmitted reference range : <=0.8. The reference r za was not used to int erpret this result as normal/abnormal . [facility] HospitalNqasnhmHSZZOIWGIN5108-76-70 20:37:00 Test Item Value Reference Range Interpretation Comments Eosinophils # (test code 0.5 See_Comment [A utomated message] The = Eosinophils #) system [employer] generated this result tra nsmitted reference range : <=0.5. The reference r za was not used to int erpret this result as normal/abnormal . [facility] HospitalJkacrdgTQXOULDWYE1009-56-50 20:37:00 Test Item Value Reference Range Interpretation Comments Eosinophils # (test code 0.5 See_Comment [A utomated message] The = Eosinophils #) system [employer] generated this result tra nsmitted reference range : <=0.5. The reference r za was not used to int erpret this result as normal/abnormal . [facility] HospitalEsktsslTNQVAWMKP9861-78-79 20:37:00 Test Item Value Reference Range Interpretation Comments Glucose Lvl (test code = Glucose Lvl) 109 70-99 [facility] HospitalOrwrsxoHPGMRXOVT9788-39-21 20:37:00 Test Item Value Reference Range Interpretation Comments BUN (test code = BUN) 35 7-22 [facility] HospitalBxqrjcgXKXMYZZSS9086-99-60 20:37:00 Test Item Value Reference Range Interpretation Comments Creatinine Lvl (test code = Creatinine 3.70 0.50-1.40 Lvl) [facility] HospitalUwojqoeUWMNYPOPZ3208-54-80 20:37:00 Test Item Value Reference Range Interpretation Comments Sodium Lvl (test code = Sodium Lvl) 142 135-145 [facility] HospitalQfwvtnkEXPURLFNR5427-53-13 20:37:00 Test Item Value Reference Range Interpretation Comments Potassium Lvl (test code = Potassium 3.9 3.5-5.1 Lvl) [facility] HospitalKwjtaeiHUACRUVAZ5154-62-88 20:37:00 Test Item Value Reference Range Interpretation Comments Chloride Lvl (test code = Chloride Lvl) 108 95-109 [facility] HospitalFlnmccmNAQKBUOMG8298-57-58 20:37:00 Test Item Value Reference Range Interpretation Comments CO2 (test code = CO2) 26 24-32 [facility] HospitalIoayjpeMZQYKJFAM5072-75-47 20:37:00 Test Item Value Reference Range Interpretation Comments Calcium Lvl (test code = Calcium Lvl) 7.8 8.5-10.5 [facility] HospitalKrmpeuwFCDOICDIK7708-63-10 20:37:00 Test Item Value Reference Range Interpretation Comments AGAP (test code = AGAP) 11.9 10.0-20.0 [facility] HospitalKynvhzpXMVVUVNLG1617-31-77 20:37:00 Test Item Value Reference Range Interpretation Comments eGFR (test code = eGFR) [address] [facility] HospitalJnbgldiRVSPJRDIOQ1665-96-84 20:37:00 Test Item Value Reference Range Interpretation Comments WBC X 10x3 (test code = WBC X 10x3) 9.8 3.7-10.[address] [facility] HospitalEjvswwfYPOXKQUFQQ3760-61-64 20:37:00 Test Item Value Reference Range Interpretation Comments RBC X 10x6 (test code = RBC X 10x6) 2.88 4.70-6.[address] [facility] HospitalXxthkrkGAIDIHIGTP2646-54-78 20:37:00 Test Item Value Reference Range Interpretation Comments Hgb (test code = Hgb) 8.4 14.0-18.[address] [facility] HospitalCaexjizQMTRHZJBYE8313-46-40 20:37:00 Test Item Value Reference Range Interpretation Comments Hct (test code = Hct) 25.7 42.0-54.0 [place] 087812-11-11 20:37:00 Test Item Value Reference Range Interpretation Comments MCV (test code = MCV) 89.0 80.0-94.0 [place] 087812-11-11 20:37:00 Test Item Value Reference Range Interpretation Comments MCH (test code = MCH) 29.1 pg 27.0-31.0 [place] 087812-11-11 20:37:00 Test Item Value Reference Range Interpretation Comments MCHC (test code = MCHC) 32.6 32.0-36.[address] [facility] HospitalYvnxenwZUKKQXRZUR4903-75-79 20:37:00 Test Item Value Reference Range Interpretation Comments RDW (test code = RDW) 17.7 11.5-14.5 [place] 087812-11-11 20:37:00 Test Item Value Reference Range Interpretation Comments Platelet (test code = Platelet) 346 133-[address] [facility] HospitalHcatdgvEGWSHFQSOB7855-91-00 20:37:00 Test Item Value Reference Range Interpretation Comments MPV (test code = MPV) 6.7 7.4-10.[address] [facility] HospitalNtffvptRWDIXYCDLY9180-51-73 20:37:00 Test Item Value Reference Range Interpretation Comments Segs (test code = Segs) 81.8 45.0-75.[address] [facility] HospitalCxepmduVQDJIECCGI9899-93-47 20:37:00 Test Item Value Reference Range Interpretation Comments Lymphocytes (test code = Lymphocytes) 5.6 20.0-40.0 [place] 087812-11-11 20:37:00 Test Item Value Reference Range Interpretation Comments Monocytes (test code = Monocytes) 6.8 2.0-12.0 [place] [address]-11-11 20:37:00 Test Item Value Reference Range Interpretation Comments Eosinophils (test code = 5.3 See_Comment [A utomated message] The Eosinophils) system which ge nerated this result tra nsmitted reference range : <=4.0. The reference r za was not used to int erpret this result as normal/abnormal . [place] 087812-11-11 20:37:00 Test Item Value Reference Range Interpretation Comments Basophils (test code = 0.5 See_Comment [Aut omated message] The Basophils) system which ge nerated this result tra nsmitted reference range : <=1.0. The reference r za was not used to int erpret this result as normal/abnormal . [place] 087812-11-11 20:37:00 Test Item Value Reference Range Interpretation Comments Neutrophils # (test code = Neutrophils 8.0 1.5-8.1 #) [facility]aiwcbnEKYGDSTSKW7202-54-14 20:37:00 Test Item Value Reference Range Interpretation Comments Lymphocytes # (test code = Lymphocytes 0.5 1.0-5.5 #) [place] [id number] 20:37:00 Test Item Value Reference Range Interpretation Comments Monocytes # (test code 0.7 See_Comment [Aut omated message] The = Monocytes #) system which generated this result tra nsmitted reference range : <=0.8. The reference r za was not used to int erpret this result as normal/abnormal . [place] [id number] 20:59:51 Test Item Value Reference Range Interpretation [...] identified.Sekou Santiago MD On 12/19/2021 14:58:37; [id number] [place] [id number] 20:59:51 Test Item Value Reference Range Interpretation [...] identified.Sekou Santiago MD On 12/19/2021 14:58:37; VR-[id number] [facility]HuqxwqgINDUNF5705-41-39 20:59:51 Test Item Value Reference Range Interpretation [...] IMPRESSION: No bowel distention or pneumoperitoneum identified.Sekou Santigao MD On 12/19/2021 14:58:37; MICHAEL-PEAR_[id number] [facility]PbivyouESIYUM0012-47-56 20:59:51 Test Item Value Reference Range Interpretation [...] identified.Sekou Santiago MD On 12/19/2021 14:58:37; ANTHONY_[id number] [facility] HospitalVwwpgsgKOLPVQ2512-42-61 20:59:51 Test Item Value Reference Range Interpretation [...] identified.Sekou Santiago MD On 12/19/2021 14:58:37; ANTHONY_[id number] [facility] HospitalMnqqsylUNHFVT8209-14-36 20:59:51 Test Item Value Reference Range Interpretation [...] identified.Sekou Santiago MD On 12/19/2021 14:58:37; ANTHONY_[id number] [facility] HospitalRmdnydvQUZFZI8623-78-62 20:59:51 Test Item Value Reference Range Interpretation [...] identified.Sekou Santiago MD On 12/19/2021 14:58:37; VR-PEAR_[id number] [facility] HospitalNkcbcsyEDBWGO9381-47-25 20:59:51 Test Item Value Reference Range Interpretation [...] identified.Sekou Santiago MD On 12/19/2021 14:58:37; VR-[id number] [facility] HospitalEqgeyrvSCKPNC5419-31-67 20:59:51 Test Item Value Reference Range Interpretation [...] identified.Sekou Santiago MD On 12/19/2021 14:58:37; VR-[id number] [facility] HospitalRgsstxfRSOHJI6181-83-80 20:59:51 Test Item Value Reference Range Interpretation [...] identified.Sekou Santiago MD On 12/19/2021 14:58:37; VR-PEAR_[id number] [facility] HospitalQzxidcfEQAIUB5398-58-23 20:59:51 Test Item Value Reference Range Interpretation [...] identified.Sekou Santiago MD On 12/19/2021 14:58:37; ANTHONY_[id number] [facility] HospitalXcngshrATNMJT7547-76-25 20:59:51 Test Item Value Reference Range Interpretation [...] identified.Sekou Santiago MD On 12/19/2021 14:58:37; ANTHONY_[id number] [facility] HospitalMbqkldkJMBJXG8901-09-47 20:59:51 Test Item Value Reference Range Interpretation [...] identified.Sekou Santiago MD On 12/19/2021 14:58:37; ANTHONY_[id number] [facility] HospitalCabrmzcXEIJOI8911-30-28 20:59:51 Test Item Value Reference Range Interpretation [...] identified.Sekou Santiago MD On 12/19/2021 14:58:37; VR-PEAR_[id number] [facility] HospitalAfiwawzHXPLJJ5993-47-24 20:59:51 Test Item Value Reference Range Interpretation [...] identified.Sekou Santiago MD On 12/19/2021 14:58:37; VR[facility][id number] [facility]WtgofzoPCQPKJ1010-25-65 20:59:51 Test Item Value Reference Range Interpretation [...] identified.Sekou Santiago MD On 12/19/2021 14:58:37; VR-[id number] [facility] HospitalUrbfgrnZDBHNHUXH4952-62-46 10:34:00 Test Item Value Reference Range Interpretation Comments Phosphorus (test code = Phosphorus) 3.9 2.5-4.5 [facility] HospitalDqpvviyYKHRWFOMI6521-87-11 10:34:00 Test Item Value Reference Range Interpretation Comments Magnesium Lvl (test code = Magnesium 2.4 1.8-2.4 Lvl) [facility] HospitalTxeryvsKGHZFZSDK9668-24-79 10:34:00 Test Item Value Reference Range Interpretation Comments Total Protein (test code = Total 6.2 6.4-8.4 Protein) [facility] HospitalHnzwnqnMXFLHUQUN0475-90-23 10:34:00 Test Item Value Reference Range Interpretation Comments Albumin Lvl (test code = Albumin Lvl) 2.9 3.5-5.0 [facility] HospitalCxbublwLPDKYADJB4958-40-11 10:34:00 Test Item Value Reference Range Interpretation Comments ALT (test code = ALT) 15 See_Comment [Auto mated message] The system which [employer] nerated this result transmit amado reference range : <=65. The reference range was not used to interpr et this result as miguel l/abnormal. [facility] HospitalMzormgcFLXLKGWZH5277-29-60 10:34:00 Test Item Value Reference Range Interpretation Comments AST (test code = AST) 20 See_Comment [Auto mated message] The system which [employer] nerated this result transmit amado reference range : <=37. The reference range was not used to interpr et this result as miguel l/abnormal. [facility] HospitalTabhqhfVCPIOLIYW3756-57-43 10:34:00 Test Item Value Reference Range Interpretation Comments Alk Phos (test code = Alk Phos) 77 39-136 [facility] HospitalCvgioetSNUEGTBPT0084-14-71 10:34:00 Test Item Value Reference Range Interpretation Comments Bili Total (test code = Bili Total) 0.4 0.2-1.3 [place] 760682-11-08 10:34:00 Test Item Value Reference Range Interpretation Comments Bili Direct (test code 0.1 See_Comment [Aut omated message] The = Bili Direct) system which generated this result tra nsmitted reference range : <=0.3. The reference r za was not used to int erpret this result as miguel l/abnormal. [facility] CenterAhouymzWSTINZNIM8357-63-32 10:34:00 Test Item Value Reference Range Interpretation Comments Bili Indirect (test 0.3 See_Comment [Automa amado message] The code = Bili Indirect) system which generated this result tra nsmitted reference range : <=1.0. The reference r za was not used to int erpret this result as normal/abnormal . [facility] CenterSackepgYZNOTILQE9672-14-05 10:34:00 Test Item Value Reference Range Interpretation Comments Globulin (test code = Globulin) 3.3 2.7-4.2 [facility] CenterEhmwbcrAAOLFIBAW9469-40-42 10:34:00 Test Item Value Reference Range Interpretation Comments A/G Ratio (test code = A/G Ratio) 0.9 1 0.7-1.6 [facility] CenterZloweuvRDBBJECWH3250-92-37 10:34:00 Test Item Value Reference Range Interpretation Comments Phosphorus (test code = Phosphorus) 3.9 2.5-4.5 [facility] CenterOgaufjuZADASVUTI0260-49-05 10:34:00 Test Item Value Reference Range Interpretation Comments Magnesium Lvl (test code = Magnesium 2.4 1.8-2.4 Lvl) [facility] CenterYskfjurXCVXUOQWT2586-56-55 10:34:00 Test Item Value Reference Range Interpretation Comments Total Protein (test code = Total 6.2 6.4-8.4 Protein) [facility] CenterLlshzmzILKRDYBJQ4684-95-77 10:34:00 Test Item Value Reference Range Interpretation Comments Albumin Lvl (test code = Albumin Lvl) 2.9 3.5-5.0 [facility] CenterVhuycubANSNNSKIK3519-79-15 10:34:00 Test Item Value Reference Range Interpretation Comments ALT (test code = ALT) 15 See_Comment [Auto mated message] The system which ge nerated this result transmit amado reference range : <=65. The reference range was not used to interpr et this result as miguel l/abnormal. [facility] CenterBanccvyJYUWJJFTI2587-69-36 10:34:00 Test Item Value Reference Range Interpretation Comments AST (test code = AST) 20 See_Comment [Auto mated message] The system which ge nerated this result transmit amado reference range : <=37. The reference range was not used to interpr et this result as miguel l/abnormal. [facility] CenterNuutdluCMVZSKUWR4358-02-60 10:34:00 Test Item Value Reference Range Interpretation Comments Alk Phos (test code = Alk Phos) 77 39-136 [facility] HospitalIvwhctmHFVQQKTHY9874-84-18 10:34:00 Test Item Value Reference Range Interpretation Comments Bili Total (test code = Bili Total) 0.4 0.2-1.3 [facility] HospitalAxavhskLGAFRBTSU5377-75-08 10:34:00 Test Item Value Reference Range Interpretation Comments Bili Direct (test code 0.1 See_Comment [Aut omated message] The = Bili Direct) system which generated this result tra nsmitted reference range : <=0.3. The reference r za was not used to int erpret this result as miguel l/abnormal. [facility] CenterOrhwwgwKKXCPIMRP6373-59-23 10:34:00 Test Item Value Reference Range Interpretation Comments Bili Indirect (test 0.3 See_Comment [Automa amado message] The code = Bili Indirect) system which generated this result tra nsmitted reference range : <=1.0. The reference r za was not used to int erpret this result as normal/abnormal . [facility] CenterAmpekbpLPXUQZTTI6639-96-86 10:34:00 Test Item Value Reference Range Interpretation Comments Globulin (test code = Globulin) 3.3 2.7-4.2 [facility] HospitalRzngkgqHMLTOQQFF3618-47-41 10:34:00 Test Item Value Reference Range Interpretation Comments A/G Ratio (test code = A/G Ratio) 0.9 1 0.7-1.6 [facility] HospitalHgvomkzWWVITLTYO8937-56-44 10:34:00 Test Item Value Reference Range Interpretation Comments Phosphorus (test code = Phosphorus) 3.9 2.5-4.5 [facility] CenterJnrjdfjUTOJFCCEW3689-58-21 10:34:00 Test Item Value Reference Range Interpretation Comments Magnesium Lvl (test code = Magnesium 2.4 1.8-2.4 Lvl) [facility] HospitalGliidoqTWDLUBYCU6034-14-92 10:34:00 Test Item Value Reference Range Interpretation Comments Total Protein (test code = Total 6.2 6.4-8.4 Protein) [facility] HospitalVszqmtkBTMCPPEUW5237-91-64 10:34:00 Test Item Value Reference Range Interpretation Comments Albumin Lvl (test code = Albumin Lvl) 2.9 3.5-5.0 [facility] HospitalTjckvldCBBLZMQLT6436-57-46 10:34:00 Test Item Value Reference Range Interpretation Comments ALT (test code = ALT) 15 See_Comment [Auto mated message] The system which ge nerated this result transmit amado reference range : <=65. The reference range was not used to interpr et this result as miguel l/abnormal. [facility] CenterIoadvdpWIORKPKLB0614-85-10 10:34:00 Test Item Value Reference Range Interpretation Comments AST (test code = AST) 20 See_Comment [Auto mated message] The system which ge nerated this result transmit amado reference range : <=37. The reference range was not used to interpr et this result as miguel l/abnormal. [facility] CenterDrsumrqPCNBNSBYE5001-34-98 10:34:00 Test Item Value Reference Range Interpretation Comments Alk Phos (test code = Alk Phos) 77 39-136 [facility] CenterJvjmwguFHPAQBHHF4832-08-79 10:34:00 Test Item Value Reference Range Interpretation Comments Bili Total (test code = Bili Total) 0.4 0.2-1.3 [facility] HospitalKyeuaztUMGMXPZDD6625-17-30 10:34:00 Test Item Value Reference Range Interpretation Comments Bili Direct (test code 0.1 See_Comment [Aut omated message] The = Bili Direct) system which generated this result tra nsmitted reference range : <=0.3. The reference r za was not used to int erpret this result as miguel l/abnormal. [facility] CenterRvrheaeRTENLGSMC9476-62-47 10:34:00 Test Item Value Reference Range Interpretation Comments Bili Indirect (test 0.3 See_Comment [Automa amado message] The code = Bili Indirect) system which generated this result tra nsmitted reference range : <=1.0. The reference r za was not used to int erpret this result as normal/abnormal . [facility] CenterVmmqngzFFPVGBFER0068-86-87 10:34:00 Test Item Value Reference Range Interpretation Comments Globulin (test code = Globulin) 3.3 2.7-4.2 [facility] HospitalDgqydcsFDBWFNPQQ1433-10-63 10:34:00 Test Item Value Reference Range Interpretation Comments A/G Ratio (test code = A/G Ratio) 0.9 1 0.7-1.6 [facility] HospitalFwtorhdKSEYOLSVD9644-17-70 10:34:00 Test Item Value Reference Range Interpretation Comments Phosphorus (test code = Phosphorus) 3.9 2.5-4.5 [facility] HospitalApzsjfzACNJCVWEX9408-40-03 10:34:00 Test Item Value Reference Range Interpretation Comments Magnesium Lvl (test code = Magnesium 2.4 1.8-2.4 Lvl) [facility] HospitalUqovcwlMCNZSCXJO2073-97-20 10:34:00 Test Item Value Reference Range Interpretation Comments Total Protein (test code = Total 6.2 6.4-8.4 Protein) [facility] HospitalRajagfcCCDTUCBJJ5106-25-56 10:34:00 Test Item Value Reference Range Interpretation Comments Albumin Lvl (test code = Albumin Lvl) 2.9 3.5-5.0 [facility] HospitalYsnjcfrMEGSSPTZR9207-92-17 10:34:00 Test Item Value Reference Range Interpretation Comments ALT (test code = ALT) 15 See_Comment [Auto mated message] The system which ge nerated this result transmit amado reference range : <=65. The reference range was not used to interpr et this result as miguel l/abnormal. [facility] HospitalJxxxybrLEWNFOMKI5113-04-91 10:34:00 Test Item Value Reference Range Interpretation Comments AST (test code = AST) 20 See_Comment [Auto mated message] The system which ge nerated this result transmit amado reference range : <=37. The reference range was not used to interpr et this result as miguel l/abnormal. [facility] HospitalZksopouXGEKSISPI9857-91-78 10:34:00 Test Item Value Reference Range Interpretation Comments Alk Phos (test code = Alk Phos) 77 39-136 [facility] HospitalLpyoqijKDFWYFECU1736-14-98 10:34:00 Test Item Value Reference Range Interpretation Comments Bili Total (test code = Bili Total) 0.4 0.2-1.3 [facility] HospitalIoqkieqTFCQVUFME0625-50-22 10:34:00 Test Item Value Reference Range Interpretation Comments Bili Direct (test code 0.1 See_Comment [Aut omated message] The = Bili Direct) system which generated this result tra nsmitted reference range : <=0.3. The reference r za was not used to int erpret this result as miguel l/abnormal. [facility] CenterHroghfpLWIUODLDQ1548-40-91 10:34:00 Test Item Value Reference Range Interpretation Comments Bili Indirect (test 0.3 See_Comment [Automa amado message] The code = Bili Indirect) system which generated this result tra nsmitted reference range : <=1.0. The reference r za was not used to int erpret this result as normal/abnormal . [facility] CenterQabmgvaOQXCQZXHS1052-59-39 10:34:00 Test Item Value Reference Range Interpretation Comments Globulin (test code = Globulin) 3.3 2.7-4.2 [facility] HospitalJbrywnpVQTGWQKDT7430-03-91 10:34:00 Test Item Value Reference Range Interpretation Comments A/G Ratio (test code = A/G Ratio) 0.9 1 0.7-1.6 [facility] HospitalKwwzxdwKCRSMGJHD0767-41-65 10:34:00 Test Item Value Reference Range Interpretation Comments Phosphorus (test code = Phosphorus) 3.9 2.5-4.5 [facility] CenterJhwjgfmFOVLNRXFY3095-67-14 10:34:00 Test Item Value Reference Range Interpretation Comments Magnesium Lvl (test code = Magnesium 2.4 1.8-2.4 Lvl) [facility] HospitalIurtkvwTKZDJXSML9038-33-44 10:34:00 Test Item Value Reference Range Interpretation Comments Total Protein (test code = Total 6.2 6.4-8.4 Protein) [facility] HospitalRzviujwYMLJUGNAL2955-80-99 10:34:00 Test Item Value Reference Range Interpretation Comments Albumin Lvl (test code = Albumin Lvl) 2.9 3.5-5.0 [facility] HospitalZqxqbwtCWKVVWLCE8255-87-47 10:34:00 Test Item Value Reference Range Interpretation Comments ALT (test code = ALT) 15 See_Comment [Auto mated message] The system which ge nerated this result transmit amado reference range : <=65. The reference range was not used to interpr et this result as miguel l/abnormal. [facility] CenterTsnnkxzYLFHGYDSO5666-69-29 10:34:00 Test Item Value Reference Range Interpretation Comments AST (test code = AST) 20 See_Comment [Auto mated message] The system which ge nerated this result transmit amado reference range : <=37. The reference range was not used to interpr et this result as miguel l/abnormal. [facility] CenterJajfdikHVYDVELGY5463-54-37 10:34:00 Test Item Value Reference Range Interpretation Comments Alk Phos (test code = Alk Phos) 77 39-136 [facility] HospitalMafbvftVQCKTVZRH3481-96-88 10:34:00 Test Item Value Reference Range Interpretation Comments Bili Total (test code = Bili Total) 0.4 0.2-1.3 [facility] HospitalKslsrauHXGRYGRUJ6211-81-49 10:34:00 Test Item Value Reference Range Interpretation Comments Bili Direct (test code 0.1 See_Comment [Aut omated message] The = Bili Direct) system which generated this result tra nsmitted reference range : <=0.3. The reference r za was not used to int erpret this result as miguel l/abnormal. [facility] HospitalNotmfwlDVEGWGXRT5190-90-26 10:34:00 Test Item Value Reference Range Interpretation Comments Bili Indirect (test 0.3 See_Comment [Automa amado message] The code = Bili Indirect) system which generated this result tra nsmitted reference range : <=1.0. The reference r za was not used to int erpret this result as normal/abnormal . [facility] HospitalSrvqhxjPVQOBCOWJ6708-17-16 10:34:00 Test Item Value Reference Range Interpretation Comments Globulin (test code = Globulin) 3.3 2.7-4.2 [facility] HospitalVbvkbfpCRGIWUHCD3051-30-86 10:34:00 Test Item Value Reference Range Interpretation Comments A/G Ratio (test code = A/G Ratio) 0.9 1 0.7-1.6 [facility] HospitalGnryxmeWWKTBEEKQ9484-22-25 10:34:00 Test Item Value Reference Range Interpretation Comments Phosphorus (test code = Phosphorus) 3.9 2.5-4.5 [facility] HospitalNisyqykSCHKFYRYB8090-29-37 10:34:00 Test Item Value Reference Range Interpretation Comments Magnesium Lvl (test code = Magnesium 2.4 1.8-2.4 Lvl) [facility] HospitalRuftqtbRWOGCRFIA4343-17-40 10:34:00 Test Item Value Reference Range Interpretation Comments Total Protein (test code = Total 6.2 6.4-8.4 Protein) [facility] CenterRtvbxfrLYEGVKAKW7043-13-63 10:34:00 Test Item Value Reference Range Interpretation Comments Albumin Lvl (test code = Albumin Lvl) 2.9 3.5-5.0 [facility] HospitalDwpukbbFSWAJTGCL0118-30-22 10:34:00 Test Item Value Reference Range Interpretation Comments ALT (test code = ALT) 15 See_Comment [Auto mated message] The system which ge nerated this result transmit amado reference range : <=65. The reference range was not used to interpr et this result as miguel l/abnormal. [facility] CenterCerzcbfWPEITMNGG1508-60-52 10:34:00 Test Item Value Reference Range Interpretation Comments AST (test code = AST) 20 See_Comment [Auto mated message] The system which ge nerated this result transmit amado reference range : <=37. The reference range was not used to interpr et this result as miguel l/abnormal. [facility] CenterNykdglkKBAIUBTKN2032-86-35 10:34:00 Test Item Value Reference Range Interpretation Comments Alk Phos (test code = Alk Phos) 77 39-136 [facility] HospitalFojtqzoAPSBSDYXV6856-44-98 10:34:00 Test Item Value Reference Range Interpretation Comments Bili Total (test code = Bili Total) 0.4 0.2-1.3 [facility] HospitalPipxagdFVRXURYPS6290-73-79 10:34:00 Test Item Value Reference Range Interpretation Comments Bili Direct (test code 0.1 See_Comment [Aut omated message] The = Bili Direct) system which generated this result tra nsmitted reference range : <=0.3. The reference r za was not used to int erpret this result as miguel l/abnormal. [facility] CenterLyufombACYWHYKIY0126-42-66 10:34:00 Test Item Value Reference Range Interpretation Comments Bili Indirect (test 0.3 See_Comment [Automa amado message] The code = Bili Indirect) system which generated this result tra nsmitted reference range : <=1.0. The reference r za was not used to int erpret this result as normal/abnormal . [facility] CenterZqmtnpkLSRLMBBWF9815-02-62 10:34:00 Test Item Value Reference Range Interpretation Comments Globulin (test code = Globulin) 3.3 2.7-4.2 [facility] HospitalOxqbesfANMIRBULC4298-01-34 10:34:00 Test Item Value Reference Range Interpretation Comments A/G Ratio (test code = A/G Ratio) 0.9 1 0.7-1.6 [facility] HospitalExvqytoXDSSNUGSK7747-89-51 10:34:00 Test Item Value Reference Range Interpretation Comments Phosphorus (test code = Phosphorus) 3.9 2.5-4.5 [facility] HospitalQbjtkjiHXFCRCACD4423-02-11 10:34:00 Test Item Value Reference Range Interpretation Comments Magnesium Lvl (test code = Magnesium 2.4 1.8-2.4 Lvl) [facility] HospitalVsmxdcmTIMIDJHOV6711-95-47 10:34:00 Test Item Value Reference Range Interpretation Comments Total Protein (test code = Total 6.2 6.4-8.4 Protein) [facility] HospitalIuudmhlSJUDHVLZF7787-14-89 10:34:00 Test Item Value Reference Range Interpretation Comments Albumin Lvl (test code = Albumin Lvl) 2.9 3.5-5.0 [facility] HospitalKmdodqwUVSMGOUNC1491-67-37 10:34:00 Test Item Value Reference Range Interpretation Comments ALT (test code = ALT) 15 See_Comment [Auto mated message] The system which ge nerated this result transmit amado reference range : <=65. The reference range was not used to interpr et this result as miguel l/abnormal. [facility] HospitalUplxvsqXUOYUUBRU1460-64-41 10:34:00 Test Item Value Reference Range Interpretation Comments AST (test code = AST) 20 See_Comment [Auto mated message] The system which ge nerated this result transmit amado reference range : <=37. The reference range was not used to interpr et this result as miguel l/abnormal. [facility] HospitalMrruozvAYOENBCIL4691-76-73 10:34:00 Test Item Value Reference Range Interpretation Comments Alk Phos (test code = Alk Phos) 77 39-136 [facility] HospitalPvptguvLBIFMIXXC0838-83-41 10:34:00 Test Item Value Reference Range Interpretation Comments Bili Total (test code = Bili Total) 0.4 0.2-1.3 [facility] HospitalUscxscuLDAEOZGPW2585-84-50 10:34:00 Test Item Value Reference Range Interpretation Comments Bili Direct (test code 0.1 See_Comment [Aut omated message] The = Bili Direct) system which generated this result tra nsmitted reference range : <=0.3. The reference r za was not used to int erpret this result as miguel l/abnormal. [facility] HospitalRdkqsfsLGPZDESIS0865-00-98 10:34:00 Test Item Value Reference Range Interpretation Comments Bili Indirect (test 0.3 See_Comment [Automa amado message] The code = Bili Indirect) system which generated this result tra nsmitted reference range : <=1.0. The reference r za was not used to int erpret this result as normal/abnormal . [facility] HospitalXgfbbquXGURXTKOC6584-77-64 10:34:00 Test Item Value Reference Range Interpretation Comments Globulin (test code = Globulin) 3.3 2.7-4.2 [facility] HospitalPvskhpyMVJSLYVXT1617-52-66 10:34:00 Test Item Value Reference Range Interpretation Comments A/G Ratio (test code = A/G Ratio) 0.9 1 0.7-1.6 [facility] CenterHiytbnlIWYPQKDFJ7949-84-66 10:34:00 Test Item Value Reference Range Interpretation Comments Phosphorus (test code = Phosphorus) 3.9 2.5-4.5 [facility] CenterTedovgbKUCDOARBP8992-10-28 10:34:00 Test Item Value Reference Range Interpretation Comments Magnesium Lvl (test code = Magnesium 2.4 1.8-2.4 Lvl) [facility] HospitalJrgfthmBVTYWOAPM2234-69-33 10:34:00 Test Item Value Reference Range Interpretation Comments Total Protein (test code = Total 6.2 6.4-8.4 Protein) [facility] HospitalTmuyfyqNQBHHCZJY8815-73-62 10:34:00 Test Item Value Reference Range Interpretation Comments Albumin Lvl (test code = Albumin Lvl) 2.9 3.5-5.0 [facility] HospitalUpzbbcgXZKDVNZSI4870-95-08 10:34:00 Test Item Value Reference Range Interpretation Comments ALT (test code = ALT) 15 See_Comment [Auto mated message] The system which ge nerated this result transmit amado reference range : <=65. The reference range was not used to interpr et this result as miguel l/abnormal. [facility] CenterJkpbsagPHQPNHRSU3131-22-91 10:34:00 Test Item Value Reference Range Interpretation Comments AST (test code = AST) 20 See_Comment [Auto mated message] The system which ge nerated this result transmit amado reference range : <=37. The reference range was not used to interpr et this result as miguel l/abnormal. [facility] HospitalItkbgwqMNULASSAQ7106-21-50 10:34:00 Test Item Value Reference Range Interpretation Comments Alk Phos (test code = Alk Phos) 77 39-136 [facility] HospitalWpnyjkyMCCTCMMSI7496-43-22 10:34:00 Test Item Value Reference Range Interpretation Comments Bili Total (test code = Bili Total) 0.4 0.2-1.3 [facility] HospitalTtfkpprKSNYTRQHS9293-03-46 10:34:00 Test Item Value Reference Range Interpretation Comments Bili Direct (test code 0.1 See_Comment [Aut omated message] The = Bili Direct) system which generated this result tra nsmitted reference range : <=0.3. The reference r za was not used to int erpret this result as miguel l/abnormal. [facility]WnyxrgiTJMCFCPCQ9393-81-10 10:34:00 Test Item Value Reference Range Interpretation Comments Bili Indirect (test 0.3 See_Comment [Automa amado message] The code = Bili Indirect) system which generated this result tra nsmitted reference range : <=1.0. The reference r za was not used to int erpret this result as normal/abnormal . [facility] HospitalAfryoegWQCJBHOCI0188-87-18 10:34:00 Test Item Value Reference Range Interpretation Comments Globulin (test code = Globulin) 3.3 2.7-4.2 [facility] HospitalQvhauyfJUIHWVBOJ6242-97-48 10:34:00 Test Item Value Reference Range Interpretation Comments A/G Ratio (test code = A/G Ratio) 0.9 1 0.7-1.6 [facility] HospitalAsgzvwyJXECKXKKW4563-58-66 10:34:00 Test Item Value Reference Range Interpretation Comments Phosphorus (test code = Phosphorus) 3.9 2.5-4.5 [place] [id number] 10:34:00 Test Item Value Reference Range Interpretation Comments Magnesium Lvl (test code = Magnesium 2.4 1.8-2.4 Lvl) [facility] HospitalBhkftfdRHPYACVYX0644-66-15 10:34:00 Test Item Value Reference Range Interpretation Comments Total Protein (test code = Total 6.2 6.4-8.4 Protein) [facility] HospitalLftkbwxNCUKIBPIC0678-61-36 10:34:00 Test Item Value Reference Range Interpretation Comments Albumin Lvl (test code = Albumin Lvl) 2.9 3.5-5.0 [facility] BhuwijjRAMBGPHJX8376-50-41 10:34:00 Test Item Value Reference Range Interpretation Comments ALT (test code = ALT) 15 See_Comment [Auto mated message] The system which ge nerated this result transmit amado reference range : <=65. The reference range was not used to interpr et this result as miguel l/abnormal. [facility] FcxecjcSKTLYZQAK4526-05-41 10:34:00 Test Item Value Reference Range Interpretation Comments AST (test code = AST) 20 See_Comment [Auto mated message] The system which ge nerated this result transmit amado reference range : <=37. The reference range was not used to interpr et this result as miguel l/abnormal. [employer] MobileJsztgqvSDTNVZRRA8461-77-96 10:34:00 Test Item Value Reference Range Interpretation Comments Alk Phos (test code = Alk Phos) 77 39-136 [facility] RjkcpckZBJZFHQYF7905-43-78 10:34:00 Test Item Value Reference Range Interpretation Comments Bili Total (test code = Bili Total) 0.4 0.2-1.3 [facility] SbmfubxOBCDMWZRQ4969-52-60 10:34:00 Test Item Value Reference Range Interpretation Comments Bili Direct (test code 0.1 See_Comment [Aut omated message] The = Bili Direct) system which generated this result tra nsmitted reference range : <=0.3. The reference r za was not used to int erpret this result as miguel l/abnormal. [employer] MobileGvsoaoxETRDESURY5561-58-40 10:34:00 Test Item Value Reference Range Interpretation Comments Bili Indirect (test 0.3 See_Comment [Automa amado message] The code = Bili Indirect) system which generated this result tra nsmitted reference range : <=1.0. The reference r za was not used to int erpret this result as normal/abnormal . [employer] MobileKrddhyoLAVCIJWZG8813-76-31 10:34:00 Test Item Value Reference Range Interpretation Comments Globulin (test code = Globulin) 3.3 2.7-4.2 [facility] YumrjbqGKIXARTGZ2306-92-90 10:34:00 Test Item Value Reference Range Interpretation Comments A/G Ratio (test code = A/G Ratio) 0.9 1 0.7-1.6 [facility]NeeqalkUEZZPICOZ1328-59-33 10:34:00 Test Item Value Reference Range Interpretation Comments Phosphorus (test code = Phosphorus) 3.9 2.5-4.5 [facility] HospitalVqemvrvCJQOREMTS0429-01-12 10:34:00 Test Item Value Reference Range Interpretation Comments Magnesium Lvl (test code = Magnesium 2.4 1.8-2.4 Lvl) [facility] HospitalTkjzvqhJCSYOPXQD4562-91-57 10:34:00 Test Item Value Reference Range Interpretation Comments Total Protein (test code = Total 6.2 6.4-8.4 Protein) [facility] HospitalWxuxwiaSLEXRZCYE1465-78-67 10:34:00 Test Item Value Reference Range Interpretation Comments Albumin Lvl (test code = Albumin Lvl) 2.9 3.5-5.0 [facility] HospitalXaukkypMFIGZYORW6593-03-65 10:34:00 Test Item Value Reference Range Interpretation Comments ALT (test code = ALT) 15 See_Comment [Auto mated message] The system which ge nerated this result transmit amado reference range : <=65. The reference range was not used to interpr et this result as miguel l/abnormal. [facility] CenterJxphlkxGSVRRIKOD6381-14-25 10:34:00 Test Item Value Reference Range Interpretation Comments AST (test code = AST) 20 See_Comment [Auto mated message] The system which ge nerated this result transmit amado reference range : <=37. The reference range was not used to interpr et this result as miguel l/abnormal. [facility] CenterGeuzqwuVNQNJXMBJ3210-34-50 10:34:00 Test Item Value Reference Range Interpretation Comments Alk Phos (test code = Alk Phos) 77 39-136 [facility] HospitalGldeyalUDTRIBOTE1297-60-16 10:34:00 Test Item Value Reference Range Interpretation Comments Bili Total (test code = Bili Total) 0.4 0.2-1.3 [facility] HospitalUkjlgotQGVMCOLHK2164-98-63 10:34:00 Test Item Value Reference Range Interpretation Comments Bili Direct (test code 0.1 See_Comment [Aut omated message] The = Bili Direct) system which generated this result tra nsmitted reference range : <=0.3. The reference r za was not used to int erpret this result as miguel l/abnormal. [facility] CenterSjekndlUFJWPIJMJ3409-28-51 10:34:00 Test Item Value Reference Range Interpretation Comments Bili Indirect (test 0.3 See_Comment [Automa amado message] The code = Bili Indirect) system which generated this result tra nsmitted reference range : <=1.0. The reference r za was not used to int erpret this result as normal/abnormal . [facility] CenterAysvivqSUUJZDYJS8765-12-60 10:34:00 Test Item Value Reference Range Interpretation Comments Globulin (test code = Globulin) 3.3 2.7-4.2 [facility] CenterIfiwgzzUMKTZVYJP8142-62-50 10:34:00 Test Item Value Reference Range Interpretation Comments A/G Ratio (test code = A/G Ratio) 0.9 1 0.7-1.6 [facility] CenterKqwuiwgASHLCRQPU0622-82-62 10:34:00 Test Item Value Reference Range Interpretation Comments Phosphorus (test code = Phosphorus) 3.9 2.5-4.5 [facility] CenterZdptqeqXIVLFBSNU8723-43-74 10:34:00 Test Item Value Reference Range Interpretation Comments Magnesium Lvl (test code = Magnesium 2.4 1.8-2.4 Lvl) [facility] CenterOitahcrJTRAEWZOR9723-34-75 10:34:00 Test Item Value Reference Range Interpretation Comments Total Protein (test code = Total 6.2 6.4-8.4 Protein) [facility] CenterZhzshsiQKQOJAGMA8148-06-57 10:34:00 Test Item Value Reference Range Interpretation Comments Albumin Lvl (test code = Albumin Lvl) 2.9 3.5-5.0 [facility] CenterHvydjfnCYDGCQNUM0954-70-63 10:34:00 Test Item Value Reference Range Interpretation Comments ALT (test code = ALT) 15 See_Comment [Auto mated message] The system which ge nerated this result transmit amado reference range : <=65. The reference range was not used to interpr et this result as miguel l/abnormal. [facility] CenterKqgkmbyASSKETJRT4357-66-24 10:34:00 Test Item Value Reference Range Interpretation Comments AST (test code = AST) 20 See_Comment [Auto mated message] The system which ge nerated this result transmit amado reference range : <=37. The reference range was not used to interpr et this result as miguel l/abnormal. [facility] CenterPnvnmlpSHKOXFMXQ4656-48-70 10:34:00 Test Item Value Reference Range Interpretation Comments Alk Phos (test code = Alk Phos) 77 39-136 [facility] HospitalFkvynqtAISAFDNHS0336-75-80 10:34:00 Test Item Value Reference Range Interpretation Comments Bili Total (test code = Bili Total) 0.4 0.2-1.3 [facility] HospitalUcopubbVBNTHSKCO5333-02-76 10:34:00 Test Item Value Reference Range Interpretation Comments Bili Direct (test code 0.1 See_Comment [Aut omated message] The = Bili Direct) system which generated this result tra nsmitted reference range : <=0.3. The reference r za was not used to int erpret this result as miguel l/abnormal. [facility] HospitalVilopidIHMVFOYTN8957-00-19 10:34:00 Test Item Value Reference Range Interpretation Comments Bili Indirect (test 0.3 See_Comment [Automa amado message] The code = Bili Indirect) system which generated this result tra nsmitted reference range : <=1.0. The reference r za was not used to int erpret this result as normal/abnormal . [facility] HospitalLjrnpkkFJZNDQZQP9041-50-21 10:34:00 Test Item Value Reference Range Interpretation Comments Globulin (test code = Globulin) 3.3 2.7-4.2 [facility] HospitalKgvtfccGSEBIWPGB7610-82-90 10:34:00 Test Item Value Reference Range Interpretation Comments A/G Ratio (test code = A/G Ratio) 0.9 1 0.7-1.6 [facility] HospitalPlwxwrrQXEQNIBJI0880-87-78 10:34:00 Test Item Value Reference Range Interpretation Comments Phosphorus (test code = Phosphorus) 3.9 2.5-4.5 [facility] HospitalYzrnlcgVTMVQWNHS8286-22-12 10:34:00 Test Item Value Reference Range Interpretation Comments Magnesium Lvl (test code = Magnesium 2.4 1.8-2.4 Lvl) [facility] HospitalGfvuunhKDRMRSFOF8797-52-03 10:34:00 Test Item Value Reference Range Interpretation Comments Total Protein (test code = Total 6.2 6.4-8.4 Protein) [facility] HospitalOudzbptDJSVMUPXG2536-38-56 10:34:00 Test Item Value Reference Range Interpretation Comments Albumin Lvl (test code = Albumin Lvl) 2.9 3.5-5.0 [facility] HospitalYhdnkpaMKBXRTWQK1994-35-97 10:34:00 Test Item Value Reference Range Interpretation Comments ALT (test code = ALT) 15 See_Comment [Auto mated message] The system which ge nerated this result transmit amado reference range : <=65. The reference range was not used to interpr et this result as miguel l/abnormal. [facility] PoomvzaUWEYIKDMV6915-57-40 10:34:00 Test Item Value Reference Range Interpretation Comments AST (test code = AST) 20 See_Comment [Auto mated message] The system which ge nerated this result transmit amado reference range : <=37. The reference range was not used to interpr et this result as miguel l/abnormal. [employer] MobileHpymgfaGPINVUQBH7427-91-02 10:34:00 Test Item Value Reference Range Interpretation Comments Alk Phos (test code = Alk Phos) 77 39-136 [facility] PiepqzsHTIMCXIXV6785-69-39 10:34:00 Test Item Value Reference Range Interpretation Comments Bili Total (test code = Bili Total) 0.4 0.2-1.3 [facility] VqtfmtxBCJURAMSE3465-76-59 10:34:00 Test Item Value Reference Range Interpretation Comments Bili Direct (test code 0.1 See_Comment [Aut omated message] The = Bili Direct) system which generated this result tra nsmitted reference range : <=0.3. The reference r za was not used to int erpret this result as miguel l/abnormal. [facility] BcvgsnaIRADDEOTT1491-74-66 10:34:00 Test Item Value Reference Range Interpretation Comments Bili Indirect (test 0.3 See_Comment [Automa amado message] The code = Bili Indirect) system which generated this result tra nsmitted reference range : <=1.0. The reference r za was not used to int erpret this result as normal/abnormal . [facility] FklomlrOCTZVRQIP9908-46-50 10:34:00 Test Item Value Reference Range Interpretation Comments Globulin (test code = Globulin) 3.3 2.7-4.2 [facility] CenterAbxgoogMWXIBNZYV1898-30-11 10:34:00 Test Item Value Reference Range Interpretation Comments A/G Ratio (test code = A/G Ratio) 0.9 1 0.7-1.6 [facility] CenterTomnntdNQYQIUMAY7448-31-99 10:34:00 Test Item Value Reference Range Interpretation Comments Phosphorus (test code = Phosphorus) 3.9 2.5-4.5 [facility] HospitalDdbifyrSYZSIXAFW3908-21-55 10:34:00 Test Item Value Reference Range Interpretation Comments Magnesium Lvl (test code = Magnesium 2.4 1.8-2.4 Lvl) [facility] HospitalQpmlcegWUONIDXUT6047-83-55 10:34:00 Test Item Value Reference Range Interpretation Comments Total Protein (test code = Total 6.2 6.4-8.4 Protein) [facility] HospitalWlwgjpsTGFCDBYJG0422-90-68 10:34:00 Test Item Value Reference Range Interpretation Comments Albumin Lvl (test code = Albumin Lvl) 2.9 3.5-5.0 [facility] HospitalQbrmgjkLQANCLTVV6401-17-29 10:34:00 Test Item Value Reference Range Interpretation Comments ALT (test code = ALT) 15 See_Comment [Auto mated message] The system which ge nerated this result transmit amado reference range : <=65. The reference range was not used to interpr et this result as miguel l/abnormal. [facility] HospitalZjbujlhUZQIAZZLB9660-23-70 10:34:00 Test Item Value Reference Range Interpretation Comments AST (test code = AST) 20 See_Comment [Auto mated message] The system which ge nerated this result transmit amado reference range : <=37. The reference range was not used to interpr et this result as miguel l/abnormal. [facility] HospitalGhphazgHIGFQXMMQ2423-58-11 10:34:00 Test Item Value Reference Range Interpretation Comments Alk Phos (test code = Alk Phos) 77 39-136 [facility] HospitalMhjoqguZCBFZZHEO9433-04-51 10:34:00 Test Item Value Reference Range Interpretation Comments Bili Total (test code = Bili Total) 0.4 0.2-1.3 [facility] HospitalKvkvgprHEEPBVQNH8656-66-71 10:34:00 Test Item Value Reference Range Interpretation Comments Bili Direct (test code 0.1 See_Comment [Aut omated message] The = Bili Direct) system which generated this result tra nsmitted reference range : <=0.3. The reference r za was not used to int erpret this result as miguel l/abnormal. [facility] HospitalRtoyowmMLDMSNIBW2744-12-34 10:34:00 Test Item Value Reference Range Interpretation Comments Bili Indirect (test 0.3 See_Comment [Automa amado message] The code = Bili Indirect) system which generated this result tra nsmitted reference range : <=1.0. The reference r za was not used to int erpret this result as normal/abnormal . [facility] CenterLvgqglaCGCRKTMXE3534-66-72 10:34:00 Test Item Value Reference Range Interpretation Comments Globulin (test code = Globulin) 3.3 2.7-4.2 [facility] CenterGqblgabVAJRWURJS3397-95-82 10:34:00 Test Item Value Reference Range Interpretation Comments A/G Ratio (test code = A/G Ratio) 0.9 1 0.7-1.6 [facility] CenterNlgjautAVNDQUSTG9405-71-21 10:34:00 Test Item Value Reference Range Interpretation Comments Phosphorus (test code = Phosphorus) 3.9 2.5-4.5 [facility] CenterWbskpdeZQJZRNCJH7985-88-03 10:34:00 Test Item Value Reference Range Interpretation Comments Magnesium Lvl (test code = Magnesium 2.4 1.8-2.4 Lvl) [facility] CenterTvhvkzrLFVMIOANP8659-05-43 10:34:00 Test Item Value Reference Range Interpretation Comments Total Protein (test code = Total 6.2 6.4-8.4 Protein) [facility] CenterDtlzwgiWWYJCNELM4627-90-73 10:34:00 Test Item Value Reference Range Interpretation Comments Albumin Lvl (test code = Albumin Lvl) 2.9 3.5-5.0 [facility] CenterByhxfyyOTANRPINB9907-10-84 10:34:00 Test Item Value Reference Range Interpretation Comments ALT (test code = ALT) 15 See_Comment [Auto mated message] The system which ge nerated this result transmit amado reference range : <=65. The reference range was not used to interpr et this result as miguel l/abnormal. [facility] CqucwdoHSUCRHUKQ6461-49-24 10:34:00 Test Item Value Reference Range Interpretation Comments AST (test code = AST) 20 See_Comment [Auto mated message] The system which ge nerated this result transmit amado reference range : <=37. The reference range was not used to interpr et this result as miguel l/abnormal. [facility] CenterCxdtjnsUGGDAPCEY2312-46-90 10:34:00 Test Item Value Reference Range Interpretation Comments Alk Phos (test code = Alk Phos) 77 39-136 [facility] HospitalRqqduzcTOACESLWE1703-29-61 10:34:00 Test Item Value Reference Range Interpretation Comments Bili Total (test code = Bili Total) 0.4 0.2-1.3 [facility] HospitalIvjqfiqWYBZELELK0497-63-85 10:34:00 Test Item Value Reference Range Interpretation Comments Bili Direct (test code 0.1 See_Comment [Aut omated message] The = Bili Direct) system which generated this result tra nsmitted reference range : <=0.3. The reference r za was not used to int erpret this result as miguel l/abnormal. [facility] HospitalDypgginTCATKNPPL3058-88-98 10:34:00 Test Item Value Reference Range Interpretation Comments Bili Indirect (test 0.3 See_Comment [Automa amado message] The code = Bili Indirect) system which generated this result tra nsmitted reference range : <=1.0. The reference r za was not used to int erpret this result as normal/abnormal . [facility] HospitalMkaqofsXDOHOUIUN9253-35-43 10:34:00 Test Item Value Reference Range Interpretation Comments Globulin (test code = Globulin) 3.3 2.7-4.2 [facility] HospitalOqqcyisKNQZXXQGX7982-18-12 10:34:00 Test Item Value Reference Range Interpretation Comments A/G Ratio (test code = A/G Ratio) 0.9 1 0.7-1.6 [facility] HospitalIrcndykQTUTBZLWT0965-30-03 10:34:00 Test Item Value Reference Range Interpretation Comments Phosphorus (test code = Phosphorus) 3.9 2.5-4.5 [facility] HospitalCzrxnovYTDMVOYEG4223-13-87 10:34:00 Test Item Value Reference Range Interpretation Comments Magnesium Lvl (test code = Magnesium 2.4 1.8-2.4 Lvl) [facility] HospitalNycqdjoPWFIDTLZP4423-56-17 10:34:00 Test Item Value Reference Range Interpretation Comments Total Protein (test code = Total 6.2 6.4-8.4 Protein) [facility] HospitalAxdgsplKMFSACDCI7055-05-78 10:34:00 Test Item Value Reference Range Interpretation Comments Albumin Lvl (test code = Albumin Lvl) 2.9 3.5-5.0 [facility] HospitalVduwdbiSSQHHQQBK1586-19-85 10:34:00 Test Item Value Reference Range Interpretation Comments ALT (test code = ALT) 15 See_Comment [Auto mated message] The system which ge nerated this result transmit amado reference range : <=65. The reference range was not used to interpr et this result as miguel l/abnormal. [facility] VayurkgVEHGECIYR5395-68-81 10:34:00 Test Item Value Reference Range Interpretation Comments AST (test code = AST) 20 See_Comment [Auto mated message] The system which ge nerated this result transmit amado reference range : <=37. The reference range was not used to interpr et this result as miguel l/abnormal. [facility] RwygidaIUZSYCLLA5797-29-36 10:34:00 Test Item Value Reference Range Interpretation Comments Alk Phos (test code = Alk Phos) 77 39-136 [facility] ZjxhtkxHYTHUTEOQ2657-88-49 10:34:00 Test Item Value Reference Range Interpretation Comments Bili Total (test code = Bili Total) 0.4 0.2-1.3 [facility] IukojdgVLZBNYXLH6995-69-32 10:34:00 Test Item Value Reference Range Interpretation Comments Bili Direct (test code 0.1 See_Comment [Aut omated message] The = Bili Direct) system which generated this result tra nsmitted reference range : <=0.3. The reference r za was not used to int erpret this result as miguel l/abnormal. [facility] IdvpnroAFYTKAZOG7453-45-28 10:34:00 Test Item Value Reference Range Interpretation Comments Bili Indirect (test 0.3 See_Comment [Automa amado message] The code = Bili Indirect) system which generated this result tra nsmitted reference range : <=1.0. The reference r za was not used to int erpret this result as normal/abnormal . [facility] LxhnuxrTLLCVFAEL3563-16-05 10:34:00 Test Item Value Reference Range Interpretation Comments Globulin (test code = Globulin) 3.3 2.7-4.2 [facility] FmfhvfmDWUSAJPWE4889-79-48 10:34:00 Test Item Value Reference Range Interpretation Comments A/G Ratio (test code = A/G Ratio) 0.9 1 0.7-1.6 [facility] GnhupsdIAOTYDJMD1533-87-11 10:34:00 Test Item Value Reference Range Interpretation Comments Phosphorus (test code = Phosphorus) 3.9 2.5-4.5 [facility] YnqgvebTSZULTIJT7228-75-71 10:34:00 Test Item Value Reference Range Interpretation Comments Magnesium Lvl (test code = Magnesium 2.4 1.8-2.4 Lvl) [place] [address]-11-08 10:34:00 Test Item Value Reference Range Interpretation Comments Total Protein (test code = Total 6.2 6.4-8.4 Protein) [facility] HospitalPczbvdvDGVBMXVUC4321-72-53 10:34:00 Test Item Value Reference Range Interpretation Comments Albumin Lvl (test code = Albumin Lvl) 2.9 3.5-5.0 [place] [address]-11-08 10:34:00 Test Item Value Reference Range Interpretation Comments ALT (test code = ALT) 15 See_Comment [Auto mated message] The system which ge nerated this result transmit amado reference range : <=65. The reference range was not used to interpr et this result as miguel l/abnormal. [facility] HospitalGnoiiloUQGZKWVVQ1939-53-56 10:34:00 Test Item Value Reference Range Interpretation Comments AST (test code = AST) 20 See_Comment [Auto mated message] The system which ge nerated this result transmit amado reference range : <=37. The reference range was not used to interpr et this result as miguel l/abnormal. [facility] HospitalUpjwrlhRWDQURLNA9776-28-04 10:34:00 Test Item Value Reference Range Interpretation Comments Alk Phos (test code = Alk Phos) 77 39-136 [place] [address]-11-08 10:34:00 Test Item Value Reference Range Interpretation Comments Bili Total (test code = Bili Total) 0.4 0.2-1.3 [facility] HospitalQtslmhwZSHNQEMSY7980-05-75 10:34:00 Test Item Value Reference Range Interpretation Comments Bili Direct (test code 0.1 See_Comment [Aut omated message] The = Bili Direct) system which generated this result tra nsmitted reference range : <=0.3. The reference r za was not used to int erpret this result as miguel l/abnormal. [place] [address]-11-08 10:34:00 Test Item Value Reference Range Interpretation Comments Bili Indirect (test 0.3 See_Comment [Automa amado message] The code = Bili Indirect) system which generated this result tra nsmitted reference range : <=1.0. The reference r za was not used to int erpret this result as normal/abnormal . [facility] HospitalUntvdahWAHTAHNAI6933-28-91 10:34:00 Test Item Value Reference Range Interpretation Comments Globulin (test code = Globulin) 3.3 2.7-4.2 [facility] HospitalNpcfxmsOJYYZYQCO7591-79-82 10:34:00 Test Item Value Reference Range Interpretation Comments A/G Ratio (test code = A/G Ratio) 0.9 1 0.7-1.6 [facility] WSSUZIP3301-47-65 13:09:00 Test Item Value Reference Range Interpretation Comments RBC product (test code Product available = RBC product) 3(12/18/21 7:09 AM) [facility] CQDDNQC8423-77-13 13:09:00 Test Item Value Reference Range Interpretation Comments RBC product (test code Product available = RBC product) 3(12/18/21 7:09 AM) [facility] XYIIPBB2849-93-03 13:09:00 Test Item Value Reference Range Interpretation Comments RBC product (test code Product available = RBC product) 3(12/18/21 7:09 AM) [facility] MQKMIRY4309-34-38 13:09:00 Test Item Value Reference Range Interpretation Comments RBC product (test code Product available = RBC product) 3(12/18/21 7:09 AM) [facility] KNWDEKA9685-12-28 13:09:00 Test Item Value Reference Range Interpretation Comments RBC product (test code Product available = RBC product) 3(12/18/21 7:09 AM) [facility] [id number] 13:09:00 Test Item Value Reference Range Interpretation Comments RBC product (test code Product available = RBC product) 3(12/18/21 7:09 AM) [facility] [id number] 13:09:00 Test Item Value Reference Range Interpretation Comments RBC product (test code Product available = RBC product) 3(12/18/21 7:09 AM) [facility] [id number] 13:09:00 Test Item Value Reference Range Interpretation Comments RBC product (test code Product available = RBC product) 3(12/18/21 7:09 AM) [facility] [id number] 13:09:00 Test Item Value Reference Range Interpretation Comments RBC product (test code Product available = RBC product) 3(12/18/21 7:09 AM) [facility] [id number] 13:09:00 Test Item Value Reference Range Interpretation Comments RBC product (test code Product available = RBC product) 3(12/18/21 7:09 AM) [facility] [id number] 13:09:00 Test Item Value Reference Range Interpretation Comments RBC product (test code Product available = RBC product) 3(12/18/21 7:09 AM) [facility] [id number] 13:09:00 Test Item Value Reference Range Interpretation Comments RBC product (test code Product available = RBC product) 3(12/18/21 7:09 AM) [facility] [id number] 13:09:00 Test Item Value Reference Range Interpretation Comments RBC product (test code Product available = RBC product) 3(12/18/21 7:09 AM) [facility] [id number] 13:09:00 Test Item Value Reference Range Interpretation Comments RBC product (test code Product available = RBC product) 3(12/18/21 7:09 AM) [facility] [id number] 13:09:00 Test Item Value Reference Range Interpretation Comments RBC product (test code Product available = RBC product) 3(12/18/21 7:09 AM) [facility] [id number] 13:09:00 Test Item Value Reference Range Interpretation Comments RBC product (test code Product available = RBC product) 3(12/18/21 7:09 AM) [id number]:40:13 Test Item Value Reference Range Interpretation [...] thrombosis. Nazia Sanford MD On 12/17/2021 05:39:24; [id number] [id number] 11:40:13 Test Item Value Reference Range Interpretation [...] thrombosis. Nazia Sanford MD On 12/17/2021 05:39:24; [id number] [id number] 11:40:13 Test Item Value Reference Range Interpretation [...] thrombosis. Nazia Sanford MD On 12/17/2021 05:39:24; [id number] [id number] 11:40:13 Test Item Value Reference Range Interpretation [...] thrombosis. Nazia Sanford MD On 12/17/2021 05:39:24; [id number] [facility] [id number] 11:40:13 Test Item Value Reference Range Interpretation [...] thrombosis. Nazia Sanford MD On 12/17/2021 05:39:24; [id number] [facility] [id number] 11:40:13 Test Item Value Reference Range Interpretation [...] thrombosis. Nazia Sanford MD On 12/17/2021 05:39:24; [id number] [id number] 11:40:13 Test Item Value Reference Range Interpretation [...] thrombosis. Nazia Sanford MD On 12/17/2021 05:39:24; [id number] [id number] 11:40:13 Test Item Value Reference Range Interpretation [...] thrombosis. Nazia Sanford MD On 12/17/2021 05:39:24; [id number] [facility] [id number] 11:40:13 Test Item Value Reference Range Interpretation [...] thrombosis. Nazia Sanford MD On 12/17/2021 05:39:24; [id number] [facility] [id number] 11:40:13 Test Item Value Reference Range Interpretation [...] thrombosis. Nazia Sanford MD On 12/17/2021 05:39:24; [id number] [facility] [id number] 11:40:13 Test Item Value Reference Range Interpretation [...] thrombosis. Nazia Sanford MD On 12/17/2021 05:39:24; [id number] [facility] HospitalXndsinrPTTJZX2709-71-21 11:40:13 Test Item Value Reference Range Interpretation [...] thrombosis. Nazia Sanford MD On 12/17/2021 05:39:24; [id number] [facility] [id number] 11:40:13 Test Item Value Reference Range Interpretation [...] thrombosis. Nazia Sanford MD On 12/17/2021 05:39:24; [id number] [facility] [id number] 11:40:13 Test Item Value Reference Range Interpretation [...] thrombosis. Nazia Sanford MD On 12/17/2021 05:39:24; [id number] [facility] [id number] 11:40:13 Test Item Value Reference Range Interpretation [...] thrombosis. Nazia Sanford MD On 12/17/2021 05:39:24; [id number] [id number] 11:40:13 Test Item Value Reference Range Interpretation [...] thrombosis. Nazia Sanford MD On 12/17/2021 05:39:24; [id number] [facility]2022-11-06 01:41:00 Test Item Value Reference Range Interpretation Comments Source Respiratory Nasophrngl Swb Panel PCR (test code = *NA*(12/16/21 8:41 PM) Source Respiratory Panel PCR) [facility]2022-11-06 01:41:00 Test Item Value Reference Range Interpretation Comments Influenza A PCR (test Negative *NA*(12/16/21 code = Influenza A PCR) 8:41 PM) [facility]2022-11-06 01:41:00 Test Item Value Reference Range Interpretation Comments Influenza B PCR (test Negative *NA*(12/16/21 code = Influenza B PCR) 8:41 PM) [facility]2022-11-06 01:41:00 Test Item Value Reference Range Interpretation Comments RSV PCR (test code = Negative *NA*(12/16/21 RSV PCR) 8:41 PM) [facility]2022-11-06 01:41:00 Test Item Value Reference Range Interpretation Comments Source Respiratory Nasophrngl Swb Panel PCR (test code = *NA*(12/16/21 8:41 PM) Source Respiratory Panel PCR) [facility]2022-11-06 01:41:00 Test Item Value Reference Range Interpretation Comments Influenza A PCR (test Negative *NA*(12/16/21 code = Influenza A PCR) 8:41 PM) [facility]2022-11-06 01:41:00 Test Item Value Reference Range Interpretation Comments Influenza B PCR (test Negative *NA*(12/16/21 code = Influenza B PCR) 8:41 PM) [facility]2022-11-06 01:41:00 Test Item Value Reference Range Interpretation Comments RSV PCR (test code = Negative *NA*(12/16/21 RSV PCR) 8:41 PM) [facility]2022-11-06 01:41:00 Test Item Value Reference Range Interpretation Comments Source Respiratory Nasophrngl Swb Panel PCR (test code = *NA*(12/16/21 8:41 PM) Source Respiratory Panel PCR) [facility]2022-11-06 01:41:00 Test Item Value Reference Range Interpretation Comments Influenza A PCR (test Negative *NA*(12/16/21 code = Influenza A PCR) 8:41 PM) [facility]2022-11-06 01:41:00 Test Item Value Reference Range Interpretation Comments Influenza B PCR (test Negative *NA*(12/16/21 code = Influenza B PCR) 8:41 PM) [facility]2022-11-06 01:41:00 Test Item Value Reference Range Interpretation Comments RSV PCR (test code = Negative *NA*(12/16/21 RSV PCR) 8:41 PM) [facility]2022-11-06 01:41:00 Test Item Value Reference Range Interpretation Comments Source Respiratory Nasophrngl Swb Panel PCR (test code = *NA*(12/16/21 8:41 PM) Source Respiratory Panel PCR) [facility]2022-11-06 01:41:00 Test Item Value Reference Range Interpretation Comments Influenza A PCR (test Negative *NA*(12/16/21 code = Influenza A PCR) 8:41 PM) [facility]2022-11-06 01:41:00 Test Item Value Reference Range Interpretation Comments Influenza B PCR (test Negative *NA*(12/16/21 code = Influenza B PCR) 8:41 PM) [facility]2022-11-06 01:41:00 Test Item Value Reference Range Interpretation Comments RSV PCR (test code = Negative *NA*(12/16/21 RSV PCR) 8:41 PM) [facility]2022-11-06 01:41:00 Test Item Value Reference Range Interpretation Comments Source Respiratory Nasophrngl Swb Panel PCR (test code = *NA*(12/16/21 8:41 PM) Source Respiratory Panel PCR) [facility]2022-11-06 01:41:00 Test Item Value Reference Range Interpretation Comments Influenza A PCR (test Negative *NA*(12/16/21 code = Influenza A PCR) 8:41 PM) [facility] [id number] 01:41:00 Test Item Value Reference Range Interpretation Comments Influenza B PCR (test Negative *NA*(12/16/21 code = Influenza B PCR) 8:41 PM) [facility]2022-11-06 01:41:00 Test Item Value Reference Range Interpretation Comments RSV PCR (test code = Negative *NA*(12/16/21 RSV PCR) 8:41 PM) [facility]2022-11-06 01:41:00 Test Item Value Reference Range Interpretation Comments Source Respiratory Nasophrngl Swb Panel PCR (test code = *NA*(12/16/21 8:41 PM) Source Respiratory Panel PCR) [facility]2022-11-06 01:41:00 Test Item Value Reference Range Interpretation Comments Influenza A PCR (test Negative *NA*(12/16/21 code = Influenza A PCR) 8:41 PM) [facility]2022-11-06 01:41:00 Test Item Value Reference Range Interpretation Comments Influenza B PCR (test Negative *NA*(12/16/21 code = Influenza B PCR) 8:41 PM) [facility]2022-11-06 01:41:00 Test Item Value Reference Range Interpretation Comments RSV PCR (test code = Negative *NA*(12/16/21 RSV PCR) 8:41 PM) [facility]2022-11-06 01:41:00 Test Item Value Reference Range Interpretation Comments Source Respiratory Nasophrngl Swb Panel PCR (test code = *NA*(12/16/21 8:41 PM) Source Respiratory Panel PCR) [facility]2022-11-06 01:41:00 Test Item Value Reference Range Interpretation Comments Influenza A PCR (test Negative *NA*(12/16/21 code = Influenza A PCR) 8:41 PM) [facility]2022-11-06 01:41:00 Test Item Value Reference Range Interpretation Comments Influenza B PCR (test Negative *NA*(12/16/21 code = Influenza B PCR) 8:41 PM) [facility]2022-11-06 01:41:00 Test Item Value Reference Range Interpretation Comments RSV PCR (test code = Negative *NA*(12/16/21 RSV PCR) 8:41 PM) [facility]2022-11-06 01:41:00 Test Item Value Reference Range Interpretation Comments Source Respiratory Nasophrngl Swb Panel PCR (test code = *NA*(12/16/21 8:41 PM) Source Respiratory Panel PCR) [facility]2022-11-06 01:41:00 Test Item Value Reference Range Interpretation Comments Influenza A PCR (test Negative *NA*(12/16/21 code = Influenza A PCR) 8:41 PM) [facility]2022-11-06 01:41:00 Test Item Value Reference Range Interpretation Comments Influenza B PCR (test Negative *NA*(12/16/21 code = Influenza B PCR) 8:41 PM) [facility]2022-11-06 01:41:00 Test Item Value Reference Range Interpretation Comments RSV PCR (test code = Negative *NA*(12/16/21 RSV PCR) 8:41 PM) [facility]2022-11-06 01:41:00 Test Item Value Reference Range Interpretation Comments Source Respiratory Nasophrngl Swb Panel PCR (test code = *NA*(12/16/21 8:41 PM) Source Respiratory Panel PCR) [facility]2022-11-06 01:41:00 Test Item Value Reference Range Interpretation Comments Influenza A PCR (test Negative *NA*(12/16/21 code = Influenza A PCR) 8:41 PM) [facility]2022-11-06 01:41:00 Test Item Value Reference Range Interpretation Comments Influenza B PCR (test Negative *NA*(12/16/21 code = Influenza B PCR) 8:41 PM) [facility]2022-11-06 01:41:00 Test Item Value Reference Range Interpretation Comments RSV PCR (test code = Negative *NA*(12/16/21 RSV PCR) 8:41 PM) [facility]2022-11-06 01:41:00 Test Item Value Reference Range Interpretation Comments Source Respiratory Nasophrngl Swb Panel PCR (test code = *NA*(12/16/21 8:41 PM) Source Respiratory Panel PCR) [facility]2022-11-06 01:41:00 Test Item Value Reference Range Interpretation Comments Influenza A PCR (test Negative *NA*(12/16/21 code = Influenza A PCR) 8:41 PM) [facility]2022-11-06 01:41:00 Test Item Value Reference Range Interpretation Comments Influenza B PCR (test Negative *NA*(12/16/21 code = Influenza B PCR) 8:41 PM) [facility]2022-11-06 01:41:00 Test Item Value Reference Range Interpretation Comments RSV PCR (test code = Negative *NA*(12/16/21 RSV PCR) 8:41 PM) [facility]2022-11-06 01:41:00 Test Item Value Reference Range Interpretation Comments Source Respiratory Nasophrngl Swb Panel PCR (test code = *NA*(12/16/21 8:41 PM) Source Respiratory Panel PCR) [facility]2022-11-06 01:41:00 Test Item Value Reference Range Interpretation Comments Influenza A PCR (test Negative *NA*(12/16/21 code = Influenza A PCR) 8:41 PM) [facility]2022-11-06 01:41:00 Test Item Value Reference Range Interpretation Comments Influenza B PCR (test Negative *NA*(12/16/21 code = Influenza B PCR) 8:41 PM) [facility]2022-11-06 01:41:00 Test Item Value Reference Range Interpretation Comments RSV PCR (test code = Negative *NA*(12/16/21 RSV PCR) 8:41 PM) [facility]2022-11-06 01:41:00 Test Item Value Reference Range Interpretation Comments Source Respiratory Nasophrngl Swb Panel PCR (test code = *NA*(12/16/21 8:41 PM) Source Respiratory Panel PCR) [facility]2022-11-06 01:41:00 Test Item Value Reference Range Interpretation Comments Influenza A PCR (test Negative *NA*(12/16/21 code = Influenza A PCR) 8:41 PM) [facility]2022-11-06 01:41:00 Test Item Value Reference Range Interpretation Comments Influenza B PCR (test Negative *NA*(12/16/21 code = Influenza B PCR) 8:41 PM) [facility]2022-11-06 01:41:00 Test Item Value Reference Range Interpretation Comments RSV PCR (test code = Negative *NA*(12/16/21 RSV PCR) 8:41 PM) [facility]2022-11-06 01:41:00 Test Item Value Reference Range Interpretation Comments Source Respiratory Nasophrngl Swb Panel PCR (test code = *NA*(12/16/21 8:41 PM) Source Respiratory Panel PCR) [facility]2022-11-06 01:41:00 Test Item Value Reference Range Interpretation Comments Influenza A PCR (test Negative *NA*(12/16/21 code = Influenza A PCR) 8:41 PM) [facility]2022-11-06 01:41:00 Test Item Value Reference Range Interpretation Comments Influenza B PCR (test Negative *NA*(12/16/21 code = Influenza B PCR) 8:41 PM) [facility]2022-11-06 01:41:00 Test Item Value Reference Range Interpretation Comments RSV PCR (test code = Negative *NA*(12/16/21 RSV PCR) 8:41 PM) [facility]2022-11-06 01:41:00 Test Item Value Reference Range Interpretation Comments Source Respiratory Nasophrngl Swb Panel PCR (test code = *NA*(12/16/21 8:41 PM) Source Respiratory Panel PCR) [facility]2022-11-06 01:41:00 Test Item Value Reference Range Interpretation Comments Influenza A PCR (test Negative *NA*(12/16/21 code = Influenza A PCR) 8:41 PM) [facility]2022-11-06 01:41:00 Test Item Value Reference Range Interpretation Comments Influenza B PCR (test Negative *NA*(12/16/21 code = Influenza B PCR) 8:41 PM) [facility]2022-11-06 01:41:00 Test Item Value Reference Range Interpretation Comments RSV PCR (test code = Negative *NA*(12/16/21 RSV PCR) 8:41 PM) [facility] [id number] 01:41:00 Test Item Value Reference Range Interpretation Comments Source Respiratory Nasophrngl Swb Panel PCR (test code = *NA*(12/16/21 8:41 PM) Source Respiratory Panel PCR) [facility]2022-11-06 01:41:00 Test Item Value Reference Range Interpretation Comments Influenza A PCR (test Negative *NA*(12/16/21 code = Influenza A PCR) 8:41 PM) [facility]2022-11-06 01:41:00 Test Item Value Reference Range Interpretation Comments Influenza B PCR (test Negative *NA*(12/16/21 code = Influenza B PCR) 8:41 PM) [facility]2022-11-06 01:41:00 Test Item Value Reference Range Interpretation Comments RSV PCR (test code = Negative *NA*(12/16/21 RSV PCR) 8:41 PM) [facility]2022-11-06 01:41:00 Test Item Value Reference Range Interpretation Comments Source Respiratory Nasophrngl Swb Panel PCR (test code = *NA*(12/16/21 8:41 PM) Source Respiratory Panel PCR) [facility]2022-11-06 01:41:00 Test Item Value Reference Range Interpretation Comments Influenza A PCR (test Negative *NA*(12/16/21 code = Influenza A PCR) 8:41 PM) [facility]2022-11-06 01:41:00 Test Item Value Reference Range Interpretation Comments Influenza B PCR (test Negative *NA*(12/16/21 code = Influenza B PCR) 8:41 PM) [facility]2022-11-06 01:41:00 Test Item Value Reference Range Interpretation Comments RSV PCR (test code = Negative *NA*(12/16/21 RSV PCR) 8:41 PM) [place] [id number] 01:08:35 Test Item Value Reference Range Interpretation [...] arteries: Surgically absent right main renal artery. Hbvz-io-jfchypjt atherosclerosis in narrowing in the left main renal artery. Right iliac arteries: Rwfn-zz-xepvncxs atherosclerosis throughout the right common iliac artery, right external iliac artery, and right internal iliac artery causing mild multifocal narrowing. 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 Fhnx-et-jziqzxao atherosclerosis in narrowing in the left main renal artery. Right iliac arteries: Opaz-fh-zecgvhtk atherosclerosis throughout the right common iliac artery, right external iliac artery, and right internal iliac artery causing mild multifocal narrowing. Left iliac arteries: Bgat-ao-ivfjywbq atherosclerosis throughout the left common iliac artery, [...] arthrosis associated with multilevel disc bulges causing ymfq-dx-gluxfoms spinal canal narrowing and neural foraminal narrowing [...] and understood.Anoop Mays MD On 12/16/2021 20:07:19; [id number] [facility]DerssqkFQRMLY4338-04-18 01:08:35 Test Item Value Reference Range Interpretation [...] arteries: Surgically absent right main renal artery. Waef-ep-saeycbrs atherosclerosis in narrowing in the left main renal artery. Right iliac arteries: Wggc-ln-kqvrvhog atherosclerosis throughout the right common iliac artery, right external iliac artery, and right internal iliac artery causing mild multifocal narrowing. Left iliac arteries: Rvms-sk-uzbzdmgn atherosclerosis throughout the left common iliac artery, [...] arthrosis associated with multilevel disc bulges causing kagi-wv-yfqtobmf spinal canal narrowing and neural foraminal narrowing [...] and understood.Anoop Mays MD On 12/16/2021 20:07:19; [id number] [facility] HospitalAagurpmVKJODC9698-94-22 01:08:35 Test Item Value Reference Range Interpretation [...] arteries: Surgically absent right main renal artery. Uxqu-yg-wttmrktj atherosclerosis in narrowing in the left main renal artery. Right iliac arteries: Joyb-zm-ensbkfic atherosclerosis throughout the right common iliac artery, right external iliac artery, and right internal iliac artery causing mild multifocal narrowing. Left iliac arteries: Hyxp-zu-vhpwcsnc atherosclerosis throughout the left common iliac artery, [...] arthrosis associated with multilevel disc bulges causing abgu-pm-zbjpynve spinal canal narrowing and neural foraminal narrowing [...] and understood.Anoop Mays MD On 12/16/2021 20:07:19; [id number] [facility] HospitalLnvpxmnUSFQHJ0627-39-30 01:08:35 Test Item Value Reference Range Interpretation [...] arteries: Surgically absent right main renal artery. Kyer-yw-dihajxmr atherosclerosis in narrowing in the left main renal artery. Right iliac arteries: Tqgm-sl-wvgexoyh atherosclerosis throughout the right common iliac artery, right external iliac artery, and right internal iliac artery causing mild multifocal narrowing. Left iliac arteries: Vqqq-kx-eftkypfv atherosclerosis throughout the left common iliac artery, [...] arthrosis associated with multilevel disc bulges causing yqkf-hr-civwdhgb spinal canal narrowing and neural foraminal narrowing [...] and understood.Anoop Mays MD On 12/16/2021 20:07:19; [id number] [facility] HospitalMclscszLJXAHC8251-60-11 01:08:35 Test Item Value Reference Range Interpretation [...] arteries: Surgically absent right main renal artery. Sics-jr-xtwaljow atherosclerosis in narrowing in the left main renal artery. Right iliac arteries: Uqws-ml-oummgnhi atherosclerosis throughout the right common iliac artery, right external iliac artery, and right internal iliac artery causing mild multifocal narrowing. Left iliac arteries: Vuyr-ms-ephpizvt atherosclerosis throughout the left common iliac artery, [...] arthrosis associated with multilevel disc bulges causing bnvu-aq-sgbpyfjd spinal canal narrowing and neural foraminal narrowing [...] and understood.Anoop Mays MD On 12/16/2021 20:07:19; [id number] [facility] HospitalEvnqwhtHJTUOL3468-08-28 01:08:35 Test Item Value Reference Range Interpretation [...] arteries: Surgically absent right main renal artery. Ajna-lo-dhbnfaaz atherosclerosis in narrowing in the left main renal artery. Right iliac arteries: Tbnx-xa-zbsbicxd atherosclerosis throughout the right common iliac artery, right external iliac artery, and right internal iliac artery causing mild multifocal narrowing. Left iliac arteries: Xmbc-el-mrtyooba atherosclerosis throughout the left common iliac artery, [...] arthrosis associated with multilevel disc bulges causing pyzw-fm-dzhsllpy spinal canal narrowing and neural foraminal narrowing [...] on 12/16/2021. The findings were acknowledged and understood.Aonop aMys MD On 12/16/2021 20:07:19; [id number] [facility] [id number] 01:08:35 Test Item Value Reference Range Interpretation [...] arteries: Surgically absent right main renal artery. Ymjx-bb-fbsbhwuh atherosclerosis in narrowing in the left main renal artery. Right iliac arteries: Pgxu-db-ufuzcnpn atherosclerosis throughout the right common iliac artery, right external iliac artery, and right internal iliac artery causing mild multifocal narrowing. Left iliac arteries: Julp-iv-affulpvl atherosclerosis throughout the left common iliac artery, [...] arthrosis associated with multilevel disc bulges causing eeqt-vl-xivrwpme spinal canal narrowing and neural foraminal narrowing [...] and understood.Anoop Mays MD On 12/16/2021 20:07:19; [id number] [facility] HospitalByxkbsqVVFDLP0942-35-80 01:08:35 Test Item Value Reference Range Interpretation [...] arteries: Surgically absent right main renal artery. Phkw-ya-gxswzcrb atherosclerosis in narrowing in the left main renal artery. Right iliac arteries: Fgfy-sh-clqyavwv atherosclerosis throughout the right common iliac artery, right external iliac artery, and right internal iliac artery causing mild multifocal narrowing. 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 Pratik Cabrear at 8:06 PM CDT on 12/16/2021. The findings were acknowledged and understood.Anoop Mays MD On 12/16/2021 20:07:19; [id number] [facility]twagnqAIISGI1930-[facility]-63 01:08:35 Test Item Value Reference Range Interpretation [...] arteries: Surgically absent right main renal artery. Vszf-vh-hlbkbtcg atherosclerosis in narrowing in the left main renal artery. Right iliac arteries: Qddf-db-ixaenxgj atherosclerosis throughout the right common iliac artery, right external iliac artery, and right internal iliac artery causing mild multifocal narrowing. Left iliac arteries: Yznt-uv-ozladwup atherosclerosis throughout the left common iliac artery, [...] arthrosis associated with multilevel disc bulges causing draw-vx-skfqwgfx spinal canal narrowing and neural foraminal narrowing [...] and understood.Anoop Mays MD On 12/16/2021 20:07:19; [id number] [facility] HospitalDhrrisuFEXQBI4756-98-61 01:08:35 Test Item Value Reference Range Interpretation [...] arteries: Surgically absent right main renal artery. Hbvc-bg-gdlzrrzu atherosclerosis in narrowing in the left main renal artery. Right iliac arteries: Xyru-py-fpcuuxrm atherosclerosis throughout the right common iliac artery, right external iliac artery, and right internal iliac artery causing mild multifocal narrowing. Left iliac arteries: Rxim-ms-rrzqtfun atherosclerosis throughout the left common iliac artery, [...] arthrosis associated with multilevel disc bulges causing uuag-mb-zbsusbga spinal canal narrowing and neural foraminal narrowing [...] and understood.Anoop Mays MD On 12/16/2021 20:07:19; [id number] [facility] HospitalDbpdaomSQHDAW8830-68-13 01:08:35 Test Item Value Reference Range Interpretation [...] arteries: Surgically absent right main renal artery. Qstn-jt-stssupil atherosclerosis in narrowing in the left main renal artery. Right iliac arteries: Xzqx-cm-kcaboeth atherosclerosis throughout the right common iliac artery, right external iliac artery, and right internal iliac artery causing mild multifocal narrowing. Left iliac arteries: Ivhh-pl-sbmzzbus atherosclerosis throughout the left common iliac artery, [...] arthrosis associated with multilevel disc bulges causing ruva-dy-nsoxgphu spinal canal narrowing and neural foraminal narrowing [...] and understood.Anoop Mays MD On 12/16/2021 20:07:19; [id number] [facility] HospitalHdftgkdUWGFNT7770-85-59 01:08:35 Test Item Value Reference Range Interpretation [...] arteries: Surgically absent right main renal artery. Pijp-lc-yvsqqhqt atherosclerosis in narrowing in the left main renal artery. Right iliac arteries: Utii-ex-fcljzsgj atherosclerosis throughout the right common iliac artery, right external iliac artery, and right internal iliac artery causing mild multifocal narrowing. Left iliac arteries: Allz-zc-enedirhg atherosclerosis throughout the left common iliac artery, [...] arthrosis associated with multilevel disc bulges causing xipp-vp-emczybbi spinal canal narrowing and neural foraminal narrowing [...] and understood.Anoop Mays MD On 12/16/2021 20:07:19; [id number] [facility] HospitalYwsjauqMPUZRX1534-83-16 01:08:35 Test Item Value Reference Range Interpretation [...] arteries: Surgically absent right main renal artery. Iely-ge-eamjgyre atherosclerosis in narrowing in the left main renal artery. Right iliac arteries: Drvy-dl-epkmzjqa atherosclerosis throughout the right common iliac artery, right external iliac artery, and right internal iliac artery causing mild multifocal narrowing. Left iliac arteries: Jbjm-ad-hpmdywba atherosclerosis throughout the left common iliac artery, [...] arthrosis associated with multilevel disc bulges causing osfh-sa-wnbltoqp spinal canal narrowing and neural foraminal narrowing [...] and understood.Anoop Mays MD On 12/16/2021 20:07:19; [id number] [facility] HospitalGskkejwUPBQFT8487-32-20 01:08:35 Test Item Value Reference Range Interpretation [...] arteries: Surgically absent right main renal artery. Bpdu-tv-ttwbfyam atherosclerosis in narrowing in the left main renal artery. Right iliac arteries: Ogin-tq-qfszzvyz atherosclerosis throughout the right common iliac artery, right external iliac artery, and right internal iliac artery causing mild multifocal narrowing. Left iliac arteries: Olkf-mt-yjtxlxfn atherosclerosis throughout the left common iliac artery, [...] arthrosis associated with multilevel disc bulges causing gobo-dx-vunvbwvz spinal canal narrowing and neural foraminal narrowing [...] and understood.Anoop Mays MD On 12/16/2021 20:07:19; [id number] [facility] HospitalAzerujzSQTTTT7887-98-00 01:08:35 Test Item Value Reference Range Interpretation [...] arteries: Surgically absent right main renal artery. Qrew-oy-dcethivn atherosclerosis in narrowing in the left main renal artery. Right iliac arteries: Vttc-nk-iefvujqg atherosclerosis throughout the right common iliac artery, right external iliac artery, and right internal iliac artery causing mild multifocal narrowing. Left iliac arteries: Udsv-ck-udnypkzs atherosclerosis throughout the left common iliac artery, [...] arthrosis associated with multilevel disc bulges causing ogjd-fe-lurvcuox spinal canal narrowing and neural foraminal narrowing [...] and understood.Anoop Mays MD On 12/16/2021 20:07:19; [id number] [facility] HospitalQmejlppJTJJKCREJ1949-21-06 16:02:00 Test Item Value Reference Range Interpretation Comments Trig (test code = Trig) 195 [facility] HospitalMwtxpasLULDWUVPJ4105-93-65 16:02:00 Test Item Value Reference Range Interpretation Comments Chol (test code = Chol) 101 [facility] HospitalJmmjuvjBZUDCZKMF5760-58-20 16:02:00 Test Item Value Reference Range Interpretation Comments HDL (test code = HDL) 25 [facility] HospitalXyggnrxGBZMAOCZZ3811-49-99 16:02:00 Test Item Value Reference Range Interpretation Comments Chol/HDL Ratio (test code = Chol/HDL 4.04 1 4.00-7.30 Ratio) [facility] HospitalNanhiuwEIFXZJOMW3627-13-26 16:02:00 Test Item Value Reference Range Interpretation Comments TSH (test code = TSH) 0.890 0.360-3.740 [facility] HospitalEvpxdnoXXCQOSXFV4730-45-65 16:02:00 Test Item Value Reference Range Interpretation Comments Lactic Acid Lvl (test code = Lactic 1.2 0.5-2.2 Acid Lvl) [facility] HospitalHxokzhoSLWFHGQZZZ8606-67-35 16:02:00 Test Item Value Reference Range Interpretation Comments PTT (test code = PTT) 32.8 s 22.9-35.[address] [facility] HospitalOlpbikmSERJFZRPQZ0153-49-54 16:02:00 Test Item Value Reference Range Interpretation Comments PT (test code = PT) 15.8 s 12.0-14.[address] [facility] HospitalQdlurtnGOAODLBDVF7843-18-15 16:02:00 Test Item Value Reference Range Interpretation Comments INR (test code = INR) 1.27 1 0.85-1.17 [facility]DrdxwcbEAKQVMWQRW3055-17-21 16:02:00 Test Item Value Reference Range Interpretation Comments Hep A IgM (test code = Hep A NON-REACTIVE IgM) [facility]MVQQDFGNNP3046-44-08 16:02:00 Test Item Value Reference Range Interpretation Comments Hep Bs Ag (test code = Hep Bs NON-REACTIVE Ag) [facility]VdinbhtPQOHMLWYTN5507-33-87 16:02:00 Test Item Value Reference Range Interpretation Comments Hep B Core IgM (test code = Hep NON-REACTIVE B Core IgM) [place] 005862-11-05 16:02:00 Test Item Value Reference Range Interpretation Comments Hep C Ab (test code = Hep C Ab) NON-REACTIVE [place] 005862-11-05 16:02:00 Test Item Value Reference Range Interpretation Comments Hep Signal to Cut-Off (test code = Hep no gt Signal to Cut-Off) [facility] HospitalHqqulkvMRCDVDAOC7315-42-43 16:02:00 Test Item Value Reference Range Interpretation Comments Lipase Lvl (test code = Lipase Lvl) 99 73-393 [facility] HospitalUpsalsyUOSAYLBNI1068-58-61 16:02:00 Test Item Value Reference Range Interpretation Comments Procalcitonin Lvl (test 0.99 See_Comment [Au tomated message] code = Procalcitonin Lvl) Th e system which generated this result transmitted ref erence range: <=0.10. The reference range was not used to interpr et this result as normal/abnormal . [facility] HospitalHqvsgvpSWPPWHZTT6300-97-57 16:02:00 Test Item Value Reference Range Interpretation Comments Ketone Quantitative (test code = Ketone 0.44 Quantitative) [facility] HospitalBlubgayJXXSDMGAU7261-63-76 16:02:00 Test Item Value Reference Range Interpretation Comments Ethanol Lvl (test code = Ethanol <3.0 mg/dL Lvl) [place] 760682-11-05 16:02:00 Test Item Value Reference Range Interpretation Comments Etoh (%) (test code = Etoh (%)) <0.003 % [place] 760682-11-05 16:02:00 Test Item Value Reference Range Interpretation Comments Hgb A1C (test code = Hgb A1C) 5.1 [facility] HospitalHxgycekHEBWGAWSB5884-08-84 16:02:00 Test Item Value Reference Range Interpretation Comments LDL (Calculated) (test code = LDL 37 (Calculated)) [place] 760682-11-05 16:02:00 Test Item Value Reference Range Interpretation Comments VLDL (test code = VLDL) 39 1 [facility] HospitalRvcnqjnVIREKTTNT4185-84-14 16:02:00 Test Item Value Reference Range Interpretation Comments Trig (test code = Trig) 195 [facility] HospitalAwmqdkbLTSXUYCME0418-42-73 16:02:00 Test Item Value Reference Range Interpretation Comments Chol (test code = Chol) 101 [facility] HospitalCzlhqgaZVYGRUUYV2362-18-84 16:02:00 Test Item Value Reference Range Interpretation Comments HDL (test code = HDL) 25 [place] [address]-11-05 16:02:00 Test Item Value Reference Range Interpretation Comments Chol/HDL Ratio (test code = Chol/HDL 4.04 1 4.00-7.30 Ratio) [facility] HospitalBdhgcfdIZLPMHLNO1218-70-39 16:02:00 Test Item Value Reference Range Interpretation Comments TSH (test code = TSH) 0.890 0.360-3.740 [facility] HospitalLztywtvGZOHKKNPO0113-73-98 16:02:00 Test Item Value Reference Range Interpretation Comments Lactic Acid Lvl (test code = Lactic 1.2 0.5-2.2 Acid Lvl) [facility] HospitalWemlpqjZNOCXFAUOI4873-50-25 16:02:00 Test Item Value Reference Range Interpretation Comments PTT (test code = PTT) 32.8 s 22.9-35.[address] [facility] HospitalPqjmqxxGPRXNPGLQP7747-14-80 16:02:00 Test Item Value Reference Range Interpretation Comments PT (test code = PT) 15.8 s 12.0-14.7 [place] 087812-11-05 16:02:00 Test Item Value Reference Range Interpretation Comments INR (test code = INR) 1.27 1 0.85-1.17 [place] [address]-11-05 16:02:00 Test Item Value Reference Range Interpretation Comments Hep A IgM (test code = Hep A NON-REACTIVE IgM) [place] 005862-11-05 16:02:00 Test Item Value Reference Range Interpretation Comments Hep Bs Ag (test code = Hep Bs NON-REACTIVE Ag) [facility]KuknjdsCGGRUVJEZV6445-57-65 16:02:00 Test Item Value Reference Range Interpretation Comments Hep B Core IgM (test code = Hep NON-REACTIVE B Core IgM) [facility] CenterZhjserrJNWIWENXLL1409-57-96 16:02:00 Test Item Value Reference Range Interpretation Comments Hep C Ab (test code = Hep C Ab) NON-REACTIVE [facility]UzbghhbIABPNCEEPP0942-46-71 16:02:00 Test Item Value Reference Range Interpretation Comments Hep Signal to Cut-Off (test code = Hep no gt Signal to Cut-Off) [facility] HospitalYrdnmhoTHYTLQTOE2610-81-19 16:02:00 Test Item Value Reference Range Interpretation Comments Lipase Lvl (test code = Lipase Lvl) 99 73-393 [facility] HospitalChtipxvXZYORCQKS6016-74-10 16:02:00 Test Item Value Reference Range Interpretation Comments Procalcitonin Lvl (test 0.99 See_Comment [Au tomated message] code = Procalcitonin Lvl) Th e system which generated this result transmitted ref erence range: <=0.10. The reference range was not used to interpr et this result as normal/abnormal . [facility] HospitalIliwwipKLCIDAOZH3668-30-71 16:02:00 Test Item Value Reference Range Interpretation Comments Ketone Quantitative (test code = Ketone 0.44 Quantitative) [facility] HospitalQlhzbklKMTBNXLOQ6493-54-74 16:02:00 Test Item Value Reference Range Interpretation Comments Ethanol Lvl (test code = Ethanol <3.0 mg/dL Lvl) [facility] HospitalEkoysahAONTLNEDJ7353-55-85 16:02:00 Test Item Value Reference Range Interpretation Comments Etoh (%) (test code = Etoh (%)) <0.003 % [facility] HospitalPgeeppeCOSMUFWSX1522-49-93 16:02:00 Test Item Value Reference Range Interpretation Comments Hgb A1C (test code = Hgb A1C) 5.1 [facility] HospitalCeqjdveOTHNHYGGL8266-10-15 16:02:00 Test Item Value Reference Range Interpretation Comments LDL (Calculated) (test code = LDL 37 (Calculated)) [facility] HospitalUtffgnbPWGSQZTFR4692-27-82 16:02:00 Test Item Value Reference Range Interpretation Comments VLDL (test code = VLDL) 39 1 [facility] HospitalTdwjsovRZUJUFCBT5763-49-62 16:02:00 Test Item Value Reference Range Interpretation Comments Trig (test code = Trig) 195 [facility] HospitalFrjleckXEGPBYHYM3975-72-67 16:02:00 Test Item Value Reference Range Interpretation Comments Chol (test code = Chol) 101 [facility] HospitalMclnyqzKLKYMRUDD3034-01-52 16:02:00 Test Item Value Reference Range Interpretation Comments HDL (test code = HDL) 25 [facility] HospitalQyjbeapODUNEUHCP0874-01-92 16:02:00 Test Item Value Reference Range Interpretation Comments Chol/HDL Ratio (test code = Chol/HDL 4.04 1 4.00-7.30 Ratio) [facility] HospitalGdwqyouMQQHCWCOW7881-46-33 16:02:00 Test Item Value Reference Range Interpretation Comments TSH (test code = TSH) 0.890 0.360-3.740 [facility] HospitalIasjdbzMVZRAPNWR9711-13-93 16:02:00 Test Item Value Reference Range Interpretation Comments Lactic Acid Lvl (test code = Lactic 1.2 0.5-2.2 Acid Lvl) [facility] HospitalHgglbvfCPSBVVTKGT9636-91-89 16:02:00 Test Item Value Reference Range Interpretation Comments PTT (test code = PTT) 32.8 s 22.9-35.8 [place] 087812-11-05 16:02:00 Test Item Value Reference Range Interpretation Comments PT (test code = PT) 15.8 s 12.0-14.[address] [facility] HospitalHctsgprTNTGWJMQJF7043-40-89 16:02:00 Test Item Value Reference Range Interpretation Comments INR (test code = INR) 1.27 1 0.85-1.17 [place] 005862-11-05 16:02:00 Test Item Value Reference Range Interpretation Comments Hep A IgM (test code = Hep A NON-REACTIVE IgM) [place] 005862-11-05 16:02:00 Test Item Value Reference Range Interpretation Comments Hep Bs Ag (test code = Hep Bs NON-REACTIVE Ag) [facility]WztupzuDJZDPDJGWV5513-92-02 16:02:00 Test Item Value Reference Range Interpretation Comments Hep B Core IgM (test code = Hep NON-REACTIVE B Core IgM) [place] [address]-11-05 16:02:00 Test Item Value Reference Range Interpretation Comments Hep C Ab (test code = Hep C Ab) NON-REACTIVE [place] 005862-11-05 16:02:00 Test Item Value Reference Range Interpretation Comments Hep Signal to Cut-Off (test code = Hep no gt Signal to Cut-Off) [facility] HospitalMzdzbcjNSGTYMQAC4202-75-86 16:02:00 Test Item Value Reference Range Interpretation Comments Lipase Lvl (test code = Lipase Lvl) 99 73-393 [place] 760682-11-05 16:02:00 Test Item Value Reference Range Interpretation Comments Procalcitonin Lvl (test 0.99 See_Comment [Au tomated message] code = Procalcitonin Lvl) Th e system which generated this result transmitted ref erence range: <=0.10. The reference range was not used to interpr et this result as normal/abnormal . [facility] HospitalCvubntcKNWHLDBKK8159-02-51 16:02:00 Test Item Value Reference Range Interpretation Comments Ketone Quantitative (test code = Ketone 0.44 Quantitative) [facility] HospitalSktnqjkJGYMDAGYJ5441-12-64 16:02:00 Test Item Value Reference Range Interpretation Comments Ethanol Lvl (test code = Ethanol <3.0 mg/dL Lvl) [facility] HospitalNmsdouuSNQHUELQI1159-90-42 16:02:00 Test Item Value Reference Range Interpretation Comments Etoh (%) (test code = Etoh (%)) <0.003 % [facility] HospitalBgwdxnxVAHJSZNCY4924-87-66 16:02:00 Test Item Value Reference Range Interpretation Comments Hgb A1C (test code = Hgb A1C) 5.1 [facility] HospitalOocubotBXHJVWHKV2603-26-69 16:02:00 Test Item Value Reference Range Interpretation Comments LDL (Calculated) (test code = LDL 37 (Calculated)) [facility] HospitalQcnccmwZVUBHYNGH6530-78-41 16:02:00 Test Item Value Reference Range Interpretation Comments VLDL (test code = VLDL) 39 1 [facility] HospitalYfirxfmGHQBDFDCC0690-05-03 16:02:00 Test Item Value Reference Range Interpretation Comments Trig (test code = Trig) 195 [facility] HospitalJtvjxpmPPSXEITCR5865-84-94 16:02:00 Test Item Value Reference Range Interpretation Comments Chol (test code = Chol) 101 [facility] HospitalLxhzdhlTVYILOKVC4463-28-15 16:02:00 Test Item Value Reference Range Interpretation Comments HDL (test code = HDL) 25 [facility] HospitalWgxbetuLGWKNLFXV6203-90-18 16:02:00 Test Item Value Reference Range Interpretation Comments Chol/HDL Ratio (test code = Chol/HDL 4.04 1 4.00-7.30 Ratio) [facility] HospitalMzfvjtsQRIBGUQFH4782-17-62 16:02:00 Test Item Value Reference Range Interpretation Comments TSH (test code = TSH) 0.890 0.360-3.740 [place] 760682-11-05 16:02:00 Test Item Value Reference Range Interpretation Comments Lactic Acid Lvl (test code = Lactic 1.2 0.5-2.2 Acid Lvl) [place] [address]-11-05 16:02:00 Test Item Value Reference Range Interpretation Comments PTT (test code = PTT) 32.8 s 22.9-35.8 [place] [address]-11-05 16:02:00 Test Item Value Reference Range Interpretation Comments PT (test code = PT) 15.8 s 12.0-14.7 [place] [address]-11-05 16:02:00 Test Item Value Reference Range Interpretation Comments INR (test code = INR) 1.27 1 0.85-1.[address]11-05 16:02:00 Test Item Value Reference Range Interpretation Comments Hep A IgM (test code = Hep A NON-REACTIVE IgM) [address]11-05 16:02:00 Test Item Value Reference Range Interpretation Comments Hep Bs Ag (test code = Hep Bs NON-REACTIVE Ag) [place] [address]-11-05 16:02:00 Test Item Value Reference Range Interpretation Comments Hep B Core IgM (test code = Hep NON-REACTIVE B Core IgM) [place] [address]-11-05 16:02:00 Test Item Value Reference Range Interpretation Comments Hep C Ab (test code = Hep C Ab) NON-REACTIVE [place] [address]-11-05 16:02:00 Test Item Value Reference Range Interpretation Comments Hep Signal to Cut-Off (test code = Hep no gt Signal to Cut-Off) [place] [address]-11-05 16:02:00 Test Item Value Reference Range Interpretation Comments Lipase Lvl (test code = Lipase Lvl) 99 73-393 [place] [address]-11-05 16:02:00 Test Item Value Reference Range Interpretation Comments Procalcitonin Lvl (test 0.99 See_Comment [Au tomated message] code = Procalcitonin Lvl) Th e system which generated this result transmitted ref erence range: <=0.10. The reference range was not used to interpr et this result as normal/abnormal . [place] [address]-11-05 16:02:00 Test Item Value Reference Range Interpretation Comments Ketone Quantitative (test code = Ketone 0.44 Quantitative) [facility] HospitalOyjtlmyTGEVOJGGM8098-33-71 16:02:00 Test Item Value Reference Range Interpretation Comments Ethanol Lvl (test code = Ethanol <3.0 mg/dL Lvl) [place] [address]-11-05 16:02:00 Test Item Value Reference Range Interpretation Comments Etoh (%) (test code = Etoh (%)) <0.003 % [place] [address]-11-05 16:02:00 Test Item Value Reference Range Interpretation Comments Hgb A1C (test code = Hgb A1C) 5.1 [place] [address]-11-05 16:02:00 Test Item Value Reference Range Interpretation Comments LDL (Calculated) (test code = LDL 37 (Calculated)) [address]11-05 16:02:00 Test Item Value Reference Range Interpretation Comments VLDL (test code = VLDL) 39 1 [place] 760682-11-05 16:02:00 Test Item Value Reference Range Interpretation Comments Trig (test code = Trig) 195 [place] [address]-11-05 16:02:00 Test Item Value Reference Range Interpretation Comments Chol (test code = Chol) 101 [place] 760682-11-05 16:02:00 Test Item Value Reference Range Interpretation Comments HDL (test code = HDL) 25 [place] [address]-11-05 16:02:00 Test Item Value Reference Range Interpretation Comments Chol/HDL Ratio (test code = Chol/HDL 4.04 1 4.00-7.30 Ratio) [place] [address]-11-05 16:02:00 Test Item Value Reference Range Interpretation Comments TSH (test code = TSH) 0.890 0.360-3.740 [place] [address]-11-05 16:02:00 Test Item Value Reference Range Interpretation Comments Lactic Acid Lvl (test code = Lactic 1.2 0.5-2.2 Acid Lvl) [facility] HospitalPxqvkkgWYMSIAEQEL6320-46-67 16:02:00 Test Item Value Reference Range Interpretation Comments PTT (test code = PTT) 32.8 s 22.9-35.8 [place] 087812-11-05 16:02:00 Test Item Value Reference Range Interpretation Comments PT (test code = PT) 15.8 s 12.0-14.[address] [facility] HospitalAlhtfbyOZOIBMGJNJ2838-05-36 16:02:00 Test Item Value Reference Range Interpretation Comments INR (test code = INR) 1.27 1 0.85-1.17 [facility]NptjiicQNWCGGAOMO4028-80-51 16:02:00 Test Item Value Reference Range Interpretation Comments Hep A IgM (test code = Hep A NON-REACTIVE IgM) [facility]UqgaisfNBJIAIBQGN0859-63-89 16:02:00 Test Item Value Reference Range Interpretation Comments Hep Bs Ag (test code = Hep Bs NON-REACTIVE Ag) [facility] CenterCowlwejYENMSYCJKO3299-73-88 16:02:00 Test Item Value Reference Range Interpretation Comments Hep B Core IgM (test code = Hep NON-REACTIVE B Core IgM) [facility] CenterEnqltoxJODYRPSINK5488-17-29 16:02:00 Test Item Value Reference Range Interpretation Comments Hep C Ab (test code = Hep C Ab) NON-REACTIVE [place] 005862-11-05 16:02:00 Test Item Value Reference Range Interpretation Comments Hep Signal to Cut-Off (test code = Hep no gt Signal to Cut-Off) [facility] HospitalKchgydkEONQSOMUE7447-23-54 16:02:00 Test Item Value Reference Range Interpretation Comments Lipase Lvl (test code = Lipase Lvl) 99 73-393 [facility] HospitalEwfocxzBSFBUPAAS4617-44-22 16:02:00 Test Item Value Reference Range Interpretation Comments Procalcitonin Lvl (test 0.99 See_Comment [Au tomated message] code = Procalcitonin Lvl) Th e system which generated this result transmitted ref erence range: <=0.10. The reference range was not used to interpr et this result as normal/abnormal . [facility] HospitalGcctvcnTXVBIEJTE1550-39-81 16:02:00 Test Item Value Reference Range Interpretation Comments Ketone Quantitative (test code = Ketone 0.44 Quantitative) [place] [address]-11-05 16:02:00 Test Item Value Reference Range Interpretation Comments Ethanol Lvl (test code = Ethanol <3.0 mg/dL Lvl) [facility] HospitalPvzfcvfTSVKAVZOM9123-59-17 16:02:00 Test Item Value Reference Range Interpretation Comments Etoh (%) (test code = Etoh (%)) <0.003 % [place] 760682-11-05 16:02:00 Test Item Value Reference Range Interpretation Comments Hgb A1C (test code = Hgb A1C) 5.1 [facility] HospitalFjzstngRYPRMJRRS8907-12-92 16:02:00 Test Item Value Reference Range Interpretation Comments LDL (Calculated) (test code = LDL 37 (Calculated)) [place] [address]-11-05 16:02:00 Test Item Value Reference Range Interpretation Comments VLDL (test code = VLDL) 39 1 [place] 760682-11-05 16:02:00 Test Item Value Reference Range Interpretation Comments Trig (test code = Trig) 195 [facility] HospitalFsfvwlxSDYXHKZIJ3053-95-44 16:02:00 Test Item Value Reference Range Interpretation Comments Chol (test code = Chol) 101 [facility] HospitalSbsringMFEOBPQHP9641-45-05 16:02:00 Test Item Value Reference Range Interpretation Comments HDL (test code = HDL) 25 [facility] HospitalQhagnywLZTMTLLID8755-84-55 16:02:00 Test Item Value Reference Range Interpretation Comments Chol/HDL Ratio (test code = Chol/HDL 4.04 1 4.00-7.30 Ratio) [facility] HospitalUccwrcaVFLMSYMJX7730-04-77 16:02:00 Test Item Value Reference Range Interpretation Comments TSH (test code = TSH) 0.890 0.360-3.740 [facility] HospitalYlcnngkCGTWFUCQQ5891-91-70 16:02:00 Test Item Value Reference Range Interpretation Comments Lactic Acid Lvl (test code = Lactic 1.2 0.5-2.2 Acid Lvl) [facility] HospitalFslujllGELMDZEJJE1390-88-56 16:02:00 Test Item Value Reference Range Interpretation Comments PTT (test code = PTT) 32.8 s 22.9-35.8 [place] 087812-11-05 16:02:00 Test Item Value Reference Range Interpretation Comments PT (test code = PT) 15.8 s 12.0-14.7 [place] [address]-11-05 16:02:00 Test Item Value Reference Range Interpretation Comments INR (test code = INR) 1.27 1 0.85-1.17 [place] [address]-11-05 16:02:00 Test Item Value Reference Range Interpretation Comments Hep A IgM (test code = Hep A NON-REACTIVE IgM) [place] 005862-11-05 16:02:00 Test Item Value Reference Range Interpretation Comments Hep Bs Ag (test code = Hep Bs NON-REACTIVE Ag) [facility] 16:02:00 Test Item Value Reference Range Interpretation Comments Hep B Core IgM (test code = Hep NON-REACTIVE B Core IgM) [place] [address]-11-05 16:02:00 Test Item Value Reference Range Interpretation Comments Hep C Ab (test code = Hep C Ab) NON-REACTIVE [place] [address]-11-05 16:02:00 Test Item Value Reference Range Interpretation Comments Hep Signal to Cut-Off (test code = Hep no gt Signal to Cut-Off) [facility]KsadksqHJOTQNMJX8013-04-95 16:02:00 Test Item Value Reference Range Interpretation Comments Lipase Lvl (test code = Lipase Lvl) 99 73-393 [place] 760682-11-05 16:02:00 Test Item Value Reference Range Interpretation Comments Procalcitonin Lvl (test 0.99 See_Comment [Au tomated message] code = Procalcitonin Lvl) e system which generated this result transmitted ref erence range: <=0.10. The reference range was not used to interpr et this result as normal/abnormal . [facility] HospitalApjphorEPXTQIMBZ4966-53-14 16:02:00 Test Item Value Reference Range Interpretation Comments Ketone Quantitative (test code = Ketone 0.44 Quantitative) [place] [address]-11-05 16:02:00 Test Item Value Reference Range Interpretation Comments Ethanol Lvl (test code = Ethanol <3.0 mg/dL Lvl) [place] 760682-11-05 16:02:00 Test Item Value Reference Range Interpretation Comments Etoh (%) (test code = Etoh (%)) <0.003 % [place] [address]-11-05 16:02:00 Test Item Value Reference Range Interpretation Comments Hgb A1C (test code = Hgb A1C) 5.1 [place] 760682-11-05 16:02:00 Test Item Value Reference Range Interpretation Comments LDL (Calculated) (test code = LDL 37 (Calculated)) [place] [address]-11-05 16:02:00 Test Item Value Reference Range Interpretation Comments VLDL (test code = VLDL) 39 1 [place] [address]-11-05 16:02:00 Test Item Value Reference Range Interpretation Comments Trig (test code = Trig) 195 [facility] HospitalMmypylfSUFLJKJDA1887-54-40 16:02:00 Test Item Value Reference Range Interpretation Comments Chol (test code = Chol) 101 [facility] HospitalOdtyjlqKDGGZWNAI3451-77-88 16:02:00 Test Item Value Reference Range Interpretation Comments HDL (test code = HDL) 25 [facility] HospitalRahodqjJCYZMXVQC8351-59-35 16:02:00 Test Item Value Reference Range Interpretation Comments Chol/HDL Ratio (test code = Chol/HDL 4.04 1 4.00-7.30 Ratio) [facility] HospitalQualpedGNLGSPHZI1232-28-75 16:02:00 Test Item Value Reference Range Interpretation Comments TSH (test code = TSH) 0.890 0.360-3.740 [facility] HospitalTklijnkOUXEGVMWA3625-53-48 16:02:00 Test Item Value Reference Range Interpretation Comments Lactic Acid Lvl (test code = Lactic 1.2 0.5-2.2 Acid Lvl) [facility] HospitalZhzqlucWSIYPIYSND5803-63-88 16:02:00 Test Item Value Reference Range Interpretation Comments PTT (test code = PTT) 32.8 s 22.9-35.[address] [facility] HospitalTagbxwkJYHVDFBMMN8096-64-91 16:02:00 Test Item Value Reference Range Interpretation Comments PT (test code = PT) 15.8 s 12.0-14.[address] [facility] [facility] HospitalThxhlpkKNOHLNBTLQ6742-37-77 16:02:00 Test Item Value Reference Range Interpretation Comments INR (test code = INR) 1.27 1 0.85-1.17 [place] 005862-11-05 16:02:00 Test Item Value Reference Range Interpretation Comments Hep A IgM (test code = Hep A NON-REACTIVE IgM) [place] 005862-11-05 16:02:00 Test Item Value Reference Range Interpretation Comments Hep Bs Ag (test code = Hep Bs NON-REACTIVE Ag) [facility]mn[facility]mhPUWBHMNLBC0663-87-77 16:02:00 Test Item Value Reference Range Interpretation Comments Hep B Core IgM (test code = Hep NON-REACTIVE B Core IgM) [facility]JltgynlRGDEIPGNHJ1654-42-54 16:02:00 Test Item Value Reference Range Interpretation Comments Hep C Ab (test code = Hep C Ab) NON-REACTIVE [place] 005862-11-05 16:02:00 Test Item Value Reference Range Interpretation Comments Hep Signal to Cut-Off (test code = Hep no gt Signal to Cut-Off) [place] 760682-11-05 16:02:00 Test Item Value Reference Range Interpretation Comments Lipase Lvl (test code = Lipase Lvl) 99 73-393 [place] 760682-11-05 16:02:00 Test Item Value Reference Range Interpretation Comments Procalcitonin Lvl (test 0.99 See_Comment [Au tomated message] code = Procalcitonin Lvl) e system which generated this result transmitted ref erence range: <=0.10. The reference range was not used to interpr et this result as normal/abnormal . [facility] HospitalYpfzhgwWBVVSSZBB7065-41-29 16:02:00 Test Item Value Reference Range Interpretation Comments Ketone Quantitative (test code = Ketone 0.44 Quantitative) [facility] HospitalLimjwbiCXCTENVPB2747-78-87 16:02:00 Test Item Value Reference Range Interpretation Comments Ethanol Lvl (test code = Ethanol <3.0 mg/dL Lvl) [facility] HospitalYmxmbafTQOQRLJOL7095-16-41 16:02:00 Test Item Value Reference Range Interpretation Comments Etoh (%) (test code = Etoh (%)) <0.003 % [facility] HospitalAqcxxxzFBQCSNMDY2723-77-72 16:02:00 Test Item Value Reference Range Interpretation Comments Hgb A1C (test code = Hgb A1C) 5.1 [place] [address]-11-05 16:02:00 Test Item Value Reference Range Interpretation Comments LDL (Calculated) (test code = LDL 37 (Calculated)) [place] [address]-11-05 16:02:00 Test Item Value Reference Range Interpretation Comments VLDL (test code = VLDL) 39 1 [place] [address]-11-05 16:02:00 Test Item Value Reference Range Interpretation Comments Trig (test code = Trig) 195 [place] 760682-11-05 16:02:00 Test Item Value Reference Range Interpretation Comments Chol (test code = Chol) 101 [place] 760682-11-05 16:02:00 Test Item Value Reference Range Interpretation Comments HDL (test code = HDL) 25 [place] 760682-11-05 16:02:00 Test Item Value Reference Range Interpretation Comments Chol/HDL Ratio (test code = Chol/HDL 4.04 1 4.00-7.30 Ratio) [facility] HospitalMsjifdjDTNSTQKVS7626-46-33 16:02:00 Test Item Value Reference Range Interpretation Comments TSH (test code = TSH) 0.890 0.360-3.740 [place] 760682-11-05 16:02:00 Test Item Value Reference Range Interpretation Comments Lactic Acid Lvl (test code = Lactic 1.2 0.5-2.2 Acid Lvl) [facility] HospitalEhguwnnLUKOWAMCOZ1446-23-42 16:02:00 Test Item Value Reference Range Interpretation Comments PTT (test code = PTT) 32.8 s 22.9-35.[address] [facility] HospitalFxhkfekNLHOODTVRE2535-72-31 16:02:00 Test Item Value Reference Range Interpretation Comments PT (test code = PT) 15.8 s 12.0-14.7 [place] 087812-11-05 16:02:00 Test Item Value Reference Range Interpretation Comments INR (test code = INR) 1.27 1 0.85-1.17 [place] 005862-11-05 16:02:00 Test Item Value Reference Range Interpretation Comments Hep A IgM (test code = Hep A NON-REACTIVE IgM) [place] [address]-11-05 16:02:00 Test Item Value Reference Range Interpretation Comments Hep Bs Ag (test code = Hep Bs NON-REACTIVE Ag) [place] [address]-11-05 16:02:00 Test Item Value Reference Range Interpretation Comments Hep B Core IgM (test code = Hep NON-REACTIVE B Core IgM) [place] [address]-11-05 16:02:00 Test Item Value Reference Range Interpretation Comments Hep C Ab (test code = Hep C Ab) NON-REACTIVE [place] [address]-11-05 16:02:00 Test Item Value Reference Range Interpretation Comments Hep Signal to Cut-Off (test code = Hep no gt Signal to Cut-Off) [facility] HospitalNkdctkfASZAPTDRP1282-50-42 16:02:00 Test Item Value Reference Range Interpretation Comments Lipase Lvl (test code = Lipase Lvl) 99 73-393 [facility] HospitalZeqtauwAEZMEEHFU7076-78-78 16:02:00 Test Item Value Reference Range Interpretation Comments Procalcitonin Lvl (test 0.99 See_Comment [Au tomated message] code = Procalcitonin Lvl) Th e system which generated this result transmitted ref erence range: <=0.10. The reference range was not used to interpr et this result as normal/abnormal . [facility] HospitalOciiesxRVWJLHMFB7251-58-75 16:02:00 Test Item Value Reference Range Interpretation Comments Ketone Quantitative (test code = Ketone 0.44 Quantitative) [facility] HospitalLtloxylODBHYOLRP2168-95-34 16:02:00 Test Item Value Reference Range Interpretation Comments Ethanol Lvl (test code = Ethanol <3.0 mg/dL Lvl) [facility] HospitalMjvjywyUKXCRXIRN2028-75-14 16:02:00 Test Item Value Reference Range Interpretation Comments Etoh (%) (test code = Etoh (%)) <0.003 % [facility] HospitalHlbhxrzHKQBHILMP5468-09-08 16:02:00 Test Item Value Reference Range Interpretation Comments Hgb A1C (test code = Hgb A1C) 5.1 [facility] HospitalSbwnepcTHEDNNSDL1340-49-82 16:02:00 Test Item Value Reference Range Interpretation Comments LDL (Calculated) (test code = LDL 37 (Calculated)) [place] 760682-11-05 16:02:00 Test Item Value Reference Range Interpretation Comments VLDL (test code = VLDL) 39 1 [facility] HospitalGpgvihbJAZTQOYXT8237-40-64 16:02:00 Test Item Value Reference Range Interpretation Comments Trig (test code = Trig) 195 [place] 760682-11-05 16:02:00 Test Item Value Reference Range Interpretation Comments Chol (test code = Chol) 101 [facility] HospitalHcjwthiLWWNHXWJC8740-33-71 16:02:00 Test Item Value Reference Range Interpretation Comments HDL (test code = HDL) 25 [place] [address]-11-05 16:02:00 Test Item Value Reference Range Interpretation Comments Chol/HDL Ratio (test code = Chol/HDL 4.04 1 4.00-7.30 Ratio) [facility] HospitalVtwpghmZBNLMCUMV1384-76-18 16:02:00 Test Item Value Reference Range Interpretation Comments TSH (test code = TSH) 0.890 0.360-3.740 [place] 760682-11-05 16:02:00 Test Item Value Reference Range Interpretation Comments Lactic Acid Lvl (test code = Lactic 1.2 0.5-2.2 Acid Lvl) [facility] HospitalZdhwexnUBQRAIEZBT0732-64-32 16:02:00 Test Item Value Reference Range Interpretation Comments PTT (test code = PTT) 32.8 s 22.9-35.8 [place] [address]-11-05 16:02:00 Test Item Value Reference Range Interpretation Comments PT (test code = PT) 15.8 s 12.0-14.7 [place] [address]-11-05 16:02:00 Test Item Value Reference Range Interpretation Comments INR (test code = INR) 1.27 1 0.85-1.17 [place] [address]-11-05 16:02:00 Test Item Value Reference Range Interpretation Comments Hep A IgM (test code = Hep A NON-REACTIVE IgM) [place] [address]-11-05 16:02:00 Test Item Value Reference Range Interpretation Comments Hep Bs Ag (test code = Hep Bs NON-REACTIVE Ag) [place] 005862-11-05 16:02:00 Test Item Value Reference Range Interpretation Comments Hep B Core IgM (test code = Hep NON-REACTIVE B Core IgM) [place] [address]-11-05 16:02:00 Test Item Value Reference Range Interpretation Comments Hep C Ab (test code = Hep C Ab) NON-REACTIVE [place] [address]-11-05 16:02:00 Test Item Value Reference Range Interpretation Comments Hep Signal to Cut-Off (test code = Hep no gt Signal to Cut-Off) [place] 760682-11-05 16:02:00 Test Item Value Reference Range Interpretation Comments Lipase Lvl (test code = Lipase Lvl) 99 73-393 [place] [address]-11-05 16:02:00 Test Item Value Reference Range Interpretation Comments Procalcitonin Lvl (test 0.99 See_Comment [Au tomated message] code = Procalcitonin Lvl) Th e system which generated this result transmitted ref erence range: <=0.10. The reference range was not used to interpr et this result as normal/abnormal . [place] [address]-11-05 16:02:00 Test Item Value Reference Range Interpretation Comments Ketone Quantitative (test code = Ketone 0.44 Quantitative) [place] [address]-11-05 16:02:00 Test Item Value Reference Range Interpretation Comments Ethanol Lvl (test code = Ethanol <3.0 mg/dL Lvl) [facility] HospitalFbxezplXBTJHPCGE8765-52-62 16:02:00 Test Item Value Reference Range Interpretation Comments Etoh (%) (test code = Etoh (%)) <0.003 % [place] 760682-11-05 16:02:00 Test Item Value Reference Range Interpretation Comments Hgb A1C (test code = Hgb A1C) 5.1 [place] [address]-11-05 16:02:00 Test Item Value Reference Range Interpretation Comments LDL (Calculated) (test code = LDL 37 (Calculated)) [address]11-05 16:02:00 Test Item Value Reference Range Interpretation Comments VLDL (test code = VLDL) 39 1 [place] [address]-11-05 16:02:00 Test Item Value Reference Range Interpretation Comments Trig (test code = Trig) 195 [place] 760682-11-05 16:02:00 Test Item Value Reference Range Interpretation Comments Chol (test code = Chol) 101 [place] [address]-11-05 16:02:00 Test Item Value Reference Range Interpretation Comments HDL (test code = HDL) 25 [place] [address]-11-05 16:02:00 Test Item Value Reference Range Interpretation Comments Chol/HDL Ratio (test code = Chol/HDL 4.04 1 4.00-7.30 Ratio) [place] [address]-11-05 16:02:00 Test Item Value Reference Range Interpretation Comments TSH (test code = TSH) 0.890 0.360-3.740 [place] [address]-11-05 16:02:00 Test Item Value Reference Range Interpretation Comments Lactic Acid Lvl (test code = Lactic 1.2 0.5-2.2 Acid Lvl) [place] [address]-11-05 16:02:00 Test Item Value Reference Range Interpretation Comments PTT (test code = PTT) 32.8 s 22.9-35.8 [place] [address]-11-05 16:02:00 Test Item Value Reference Range Interpretation Comments PT (test code = PT) 15.8 s 12.0-14.7 [place] [address]-11-05 16:02:00 Test Item Value Reference Range Interpretation Comments INR (test code = INR) 1.27 1 0.85-1.17 [place] [address]-11-05 16:02:00 Test Item Value Reference Range Interpretation Comments Hep A IgM (test code = Hep A NON-REACTIVE IgM) [facility]EtkwgyeTFPGGRSYAX4041-38-46 16:02:00 Test Item Value Reference Range Interpretation Comments Hep Bs Ag (test code = Hep Bs NON-REACTIVE Ag) [place] 005862-11-05 16:02:00 Test Item Value Reference Range Interpretation Comments Hep B Core IgM (test code = Hep NON-REACTIVE B Core IgM) [place] [address]-11-05 16:02:00 Test Item Value Reference Range Interpretation Comments Hep C Ab (test code = Hep C Ab) NON-REACTIVE [place] [address]-11-05 16:02:00 Test Item Value Reference Range Interpretation Comments Hep Signal to Cut-Off (test code = Hep no gt Signal to Cut-Off) [facility] HospitalEspmarcINILZTKYN4615-93-92 16:02:00 Test Item Value Reference Range Interpretation Comments Lipase Lvl (test code = Lipase Lvl) 99 73-393 [facility] HospitalLqnzonbCCZCFRKZK3343-04-63 16:02:00 Test Item Value Reference Range Interpretation Comments Procalcitonin Lvl (test 0.99 See_Comment [Au tomated message] code = Procalcitonin Lvl) Th e system which generated this result transmitted ref erence range: <=0.10. The reference range was not used to interpr et this result as normal/abnormal . [facility] HospitalYskaxtoDWZFMPWOY1795-62-26 16:02:00 Test Item Value Reference Range Interpretation Comments Ketone Quantitative (test code = Ketone 0.44 Quantitative) [place] [address]-11-05 16:02:00 Test Item Value Reference Range Interpretation Comments Ethanol Lvl (test code = Ethanol <3.0 mg/dL Lvl) [facility] HospitalLvvvkkuRESHKJWOW5882-39-52 16:02:00 Test Item Value Reference Range Interpretation Comments Etoh (%) (test code = Etoh (%)) <0.003 % [facility] HospitalRhslsbkZSPLAKHME8676-46-17 16:02:00 Test Item Value Reference Range Interpretation Comments Hgb A1C (test code = Hgb A1C) 5.1 [place] 760682-11-05 16:02:00 Test Item Value Reference Range Interpretation Comments LDL (Calculated) (test code = LDL 37 (Calculated)) [facility] HospitalGznkqqfWEGXHFAZF1853-81-48 16:02:00 Test Item Value Reference Range Interpretation Comments VLDL (test code = VLDL) 39 1 [place] 760682-11-05 16:02:00 Test Item Value Reference Range Interpretation Comments Trig (test code = Trig) 195 [facility] HospitalYshzngnCTNHTVSOS8819-69-88 16:02:00 Test Item Value Reference Range Interpretation Comments Chol (test code = Chol) 101 [place] 760682-11-05 16:02:00 Test Item Value Reference Range Interpretation Comments HDL (test code = HDL) 25 [facility] HospitalSijpryhQGEMGCTKZ6683-70-43 16:02:00 Test Item Value Reference Range Interpretation Comments Chol/HDL Ratio (test code = Chol/HDL 4.04 1 4.00-7.30 Ratio) [facility] HospitalIgpmsdrNCRPADZLQ3107-34-08 16:02:00 Test Item Value Reference Range Interpretation Comments TSH (test code = TSH) 0.890 0.360-3.740 [place] 760682-11-05 16:02:00 Test Item Value Reference Range Interpretation Comments Lactic Acid Lvl (test code = Lactic 1.2 0.5-2.2 Acid Lvl) [facility] HospitalQwffaqdQBYEKZUAXR5089-84-14 16:02:00 Test Item Value Reference Range Interpretation Comments PTT (test code = PTT) 32.8 s 22.9-35.8 [place] 087812-11-05 16:02:00 Test Item Value Reference Range Interpretation Comments PT (test code = PT) 15.8 s 12.0-14.7 [place] [address]-11-05 16:02:00 Test Item Value Reference Range Interpretation Comments INR (test code = INR) 1.27 1 0.85-1.17 [place] [address]-11-05 16:02:00 Test Item Value Reference Range Interpretation Comments Hep A IgM (test code = Hep A NON-REACTIVE IgM) [facility]IsiyisuSOAHITBBAZ1232-80-63 16:02:00 Test Item Value Reference Range Interpretation Comments Hep Bs Ag (test code = Hep Bs NON-REACTIVE Ag) [facility] CenterEvkuqrdSUMWZCCJBU5378-10-22 16:02:00 Test Item Value Reference Range Interpretation Comments Hep B Core IgM (test code = Hep NON-REACTIVE B Core IgM) [facility] CenterZuqbfruJQPJAMZEDU3718-28-09 16:02:00 Test Item Value Reference Range Interpretation Comments Hep C Ab (test code = Hep C Ab) NON-REACTIVE [facility] CenterOygueffIAPVKEELNP5071-89-96 16:02:00 Test Item Value Reference Range Interpretation Comments Hep Signal to Cut-Off (test code = Hep no gt Signal to Cut-Off) [facility] HospitalQofnwmeTBWLBTCXX5012-25-26 16:02:00 Test Item Value Reference Range Interpretation Comments Lipase Lvl (test code = Lipase Lvl) 99 73-393 [facility] HospitalFyoixfpRTSSFAXTO0366-22-36 16:02:00 Test Item Value Reference Range Interpretation Comments Procalcitonin Lvl (test 0.99 See_Comment [Au tomated message] code = Procalcitonin Lvl) Th e system which generated this result transmitted ref erence range: <=0.10. The reference range was not used to interpr et this result as normal/abnormal . [facility] HospitalKpzsfhoPSMMIYUIH0963-22-99 16:02:00 Test Item Value Reference Range Interpretation Comments Ketone Quantitative (test code = Ketone 0.44 Quantitative) [facility] HospitalBdwlbskZQRQAFOAP4202-05-08 16:02:00 Test Item Value Reference Range Interpretation Comments Ethanol Lvl (test code = Ethanol <3.0 mg/dL Lvl) [facility] HospitalCfitljzRNKAGEUVI6715-66-61 16:02:00 Test Item Value Reference Range Interpretation Comments Etoh (%) (test code = Etoh (%)) <0.003 % [facility] HospitalYcsjmriKQVLWMAGH5032-96-10 16:02:00 Test Item Value Reference Range Interpretation Comments Hgb A1C (test code = Hgb A1C) 5.1 [facility] HospitalXbumuzcBXPHTPSVV3106-70-80 16:02:00 Test Item Value Reference Range Interpretation Comments LDL (Calculated) (test code = LDL 37 (Calculated)) [facility] HospitalUilahwmZIMTNUFUA7250-00-39 16:02:00 Test Item Value Reference Range Interpretation Comments VLDL (test code = VLDL) 39 1 [facility] HospitalQebpozfSPIEEVRIN1089-88-58 16:02:00 Test Item Value Reference Range Interpretation Comments Trig (test code = Trig) 195 [facility] HospitalLzgyhfgXOFJRPKTJ8851-55-07 16:02:00 Test Item Value Reference Range Interpretation Comments Chol (test code = Chol) 101 [facility] HospitalHvtkwvkKTHOBUYCH8506-16-09 16:02:00 Test Item Value Reference Range Interpretation Comments HDL (test code = HDL) 25 [facility] HospitalOitktjfDIYCBSUHZ0628-82-35 16:02:00 Test Item Value Reference Range Interpretation Comments Chol/HDL Ratio (test code = Chol/HDL 4.04 1 4.00-7.30 Ratio) [facility] HospitalTurbiwvUEIBPHTAS4688-55-70 16:02:00 Test Item Value Reference Range Interpretation Comments TSH (test code = TSH) 0.890 0.360-3.740 [facility] HospitalThcoyalTSZDGOCSA0472-02-02 16:02:00 Test Item Value Reference Range Interpretation Comments Lactic Acid Lvl (test code = Lactic 1.2 0.5-2.2 Acid Lvl) [facility] HospitalHhtwhhtTHNWSWHIQE9357-01-44 16:02:00 Test Item Value Reference Range Interpretation Comments PTT (test code = PTT) 32.8 s 22.9-35.[address] [facility] HospitalDxabrxqFUPXOAWTEV1396-14-68 16:02:00 Test Item Value Reference Range Interpretation Comments PT (test code = PT) 15.8 s 12.0-14.[address] [facility] HospitalZondbmkEYHKILACUX6857-76-47 16:02:00 Test Item Value Reference Range Interpretation Comments INR (test code = INR) 1.27 1 0.85-1.17 [facility]XdpwabjYNVCJURFUI0946-63-91 16:02:00 Test Item Value Reference Range Interpretation Comments Hep A IgM (test code = Hep A NON-REACTIVE IgM) [facility] CenterOvpekvpSQJEDSXUMR4705-86-46 16:02:00 Test Item Value Reference Range Interpretation Comments Hep Bs Ag (test code = Hep Bs NON-REACTIVE Ag) [facility] CenterGrgzofsSKBCZVYOHQ9407-64-04 16:02:00 Test Item Value Reference Range Interpretation Comments Hep B Core IgM (test code = Hep NON-REACTIVE B Core IgM) [facility] CenterUanqaveZDSUGLXBNX2547-76-74 16:02:00 Test Item Value Reference Range Interpretation Comments Hep C Ab (test code = Hep C Ab) NON-REACTIVE [facility] CenterHmhwhmwGDXXFQXOGC2246-39-05 16:02:00 Test Item Value Reference Range Interpretation Comments Hep Signal to Cut-Off (test code = Hep no gt Signal to Cut-Off) [place] 760682-11-05 16:02:00 Test Item Value Reference Range Interpretation Comments Lipase Lvl (test code = Lipase Lvl) 99 73-393 [place] [address]-11-05 16:02:00 Test Item Value Reference Range Interpretation Comments Procalcitonin Lvl (test 0.99 See_Comment [Au tomated message] code = Procalcitonin Lvl) e system which generated this result transmitted ref erence range: <=0.10. The reference range was not used to interpr et this result as normal/abnormal . [facility] HospitalCfzgxocBBOUTOYZM2307-82-57 16:02:00 Test Item Value Reference Range Interpretation Comments Ketone Quantitative (test code = Ketone 0.44 Quantitative) [facility] HospitalZsglekjFJBRLWBAT5368-71-37 16:02:00 Test Item Value Reference Range Interpretation Comments Ethanol Lvl (test code = Ethanol <3.0 mg/dL Lvl) [facility] HospitalOgnqhzoTVSFKHGMA3706-57-98 16:02:00 Test Item Value Reference Range Interpretation Comments Etoh (%) (test code = Etoh (%)) <0.003 % [facility] HospitalDpvhqejDTGNVTAAI3684-58-26 16:02:00 Test Item Value Reference Range Interpretation Comments Hgb A1C (test code = Hgb A1C) 5.1 [facility] HospitalWorelnyMBBUSJLHW8080-53-28 16:02:00 Test Item Value Reference Range Interpretation Comments LDL (Calculated) (test code = LDL 37 (Calculated)) [place] [address]-11-05 16:02:00 Test Item Value Reference Range Interpretation Comments VLDL (test code = VLDL) 39 1 [place] 760682-11-05 16:02:00 Test Item Value Reference Range Interpretation Comments Trig (test code = Trig) 195 [place] [address]-11-05 16:02:00 Test Item Value Reference Range Interpretation Comments Chol (test code = Chol) 101 [place] 760682-11-05 16:02:00 Test Item Value Reference Range Interpretation Comments HDL (test code = HDL) 25 [place] [address]-11-05 16:02:00 Test Item Value Reference Range Interpretation Comments Chol/HDL Ratio (test code = Chol/HDL 4.04 1 4.00-7.30 Ratio) [facility] HospitalEekojtlZBUVDHTHC3996-81-57 16:02:00 Test Item Value Reference Range Interpretation Comments TSH (test code = TSH) 0.890 0.360-3.740 [place] 760682-11-05 16:02:00 Test Item Value Reference Range Interpretation Comments Lactic Acid Lvl (test code = Lactic 1.2 0.5-2.2 Acid Lvl) [facility]KgpaxdeRKVXVPTNYS9071-61-78 16:02:00 Test Item Value Reference Range Interpretation Comments PTT (test code = PTT) 32.8 s 22.9-35.[address] [facility] HospitalPvwnjivRCIFJKHWNY7944-53-45 16:02:00 Test Item Value Reference Range Interpretation Comments PT (test code = PT) 15.8 s 12.0-14.[address] [facility] HospitalUmpbgnsAKOMSLHISF7912-40-02 16:02:00 Test Item Value Reference Range Interpretation Comments INR (test code = INR) 1.27 1 0.85-1.17 [place] [address]-11-05 16:02:00 Test Item Value Reference Range Interpretation Comments Hep A IgM (test code = Hep A NON-REACTIVE IgM) [place] [address]-11-05 16:02:00 Test Item Value Reference Range Interpretation Comments Hep Bs Ag (test code = Hep Bs NON-REACTIVE Ag) [place] [address]-11-05 16:02:00 Test Item Value Reference Range Interpretation Comments Hep B Core IgM (test code = Hep NON-REACTIVE B Core IgM) [place] [address]-11-05 16:02:00 Test Item Value Reference Range Interpretation Comments Hep C Ab (test code = Hep C Ab) NON-REACTIVE [place] [address]-11-05 16:02:00 Test Item Value Reference Range Interpretation Comments Hep Signal to Cut-Off (test code = Hep no gt Signal to Cut-Off) [place] [address]-11-05 16:02:00 Test Item Value Reference Range Interpretation Comments Lipase Lvl (test code = Lipase Lvl) 99 73-393 [facility] HospitalEsnilnuGBAYDQXNR7590-33-31 16:02:00 Test Item Value Reference Range Interpretation Comments Procalcitonin Lvl (test 0.99 See_Comment [Au tomated message] code = Procalcitonin Lvl) Th e system which generated this result transmitted ref erence range: <=0.10. The reference range was not used to interpr et this result as normal/abnormal . [place] [address]-11-05 16:02:00 Test Item Value Reference Range Interpretation Comments Ketone Quantitative (test code = Ketone 0.44 Quantitative) [place] [address]-11-05 16:02:00 Test Item Value Reference Range Interpretation Comments Ethanol Lvl (test code = Ethanol <3.0 mg/dL Lvl) [place] [address]-11-05 16:02:00 Test Item Value Reference Range Interpretation Comments Etoh (%) (test code = Etoh (%)) <0.003 % [facility] HospitalUdfnudzZZXRUDYQN7385-02-53 16:02:00 Test Item Value Reference Range Interpretation Comments Hgb A1C (test code = Hgb A1C) 5.1 [place] [address]-11-05 16:02:00 Test Item Value Reference Range Interpretation Comments LDL (Calculated) (test code = LDL 37 (Calculated)) [place] 760682-11-05 16:02:00 Test Item Value Reference Range Interpretation Comments VLDL (test code = VLDL) 39 1 [place] [address]-11-05 16:02:00 Test Item Value Reference Range Interpretation Comments Trig (test code = Trig) 195 [facility] HospitalDokbqydCOQRTQDLE3240-43-12 16:02:00 Test Item Value Reference Range Interpretation Comments Chol (test code = Chol) 101 [place] [address]-11-05 16:02:00 Test Item Value Reference Range Interpretation Comments HDL (test code = HDL) 25 [place] 760682-11-05 16:02:00 Test Item Value Reference Range Interpretation Comments Chol/HDL Ratio (test code = Chol/HDL 4.04 1 4.00-7.30 Ratio) [place] [address]-11-05 16:02:00 Test Item Value Reference Range Interpretation Comments TSH (test code = TSH) 0.890 0.360-3.740 [place] [address]-11-05 16:02:00 Test Item Value Reference Range Interpretation Comments Lactic Acid Lvl (test code = Lactic 1.2 0.5-2.2 Acid Lvl) [facility] HospitalZwpyiqgTDOORFMWNO0714-93-10 16:02:00 Test Item Value Reference Range Interpretation Comments PTT (test code = PTT) 32.8 s 22.9-35.[address] [facility] [facility] HospitalNblxucrLDYELJLOXB0712-51-20 16:02:00 Test Item Value Reference Range Interpretation Comments PT (test code = PT) 15.8 s 12.0-14.[address] [facility] HospitalLptnzayGMICCLSJWY1406-03-84 16:02:00 Test Item Value Reference Range Interpretation Comments INR (test code = INR) 1.27 1 0.85-1.17 [place] 005862-11-05 16:02:00 Test Item Value Reference Range Interpretation Comments Hep A IgM (test code = Hep A NON-REACTIVE IgM) [place] 005862-11-05 16:02:00 Test Item Value Reference Range Interpretation Comments Hep Bs Ag (test code = Hep Bs NON-REACTIVE Ag) [place] 005862-11-05 16:02:00 Test Item Value Reference Range Interpretation Comments Hep B Core IgM (test code = Hep NON-REACTIVE B Core IgM) [place] 005862-11-05 16:02:00 Test Item Value Reference Range Interpretation Comments Hep C Ab (test code = Hep C Ab) NON-REACTIVE [place] [address]-11-05 16:02:00 Test Item Value Reference Range Interpretation Comments Hep Signal to Cut-Off (test code = Hep no gt Signal to Cut-Off) [facility] HospitalDhukvwxOUDUILGOC8225-33-68 16:02:00 Test Item Value Reference Range Interpretation Comments Lipase Lvl (test code = Lipase Lvl) 99 73-393 [place] 760682-11-05 16:02:00 Test Item Value Reference Range Interpretation Comments Procalcitonin Lvl (test 0.99 See_Comment [Au tomated message] code = Procalcitonin Lvl) e system which generated this result transmitted ref erence range: <=0.10. The reference range was not used to interpr et this result as normal/abnormal . [place] 760682-11-05 16:02:00 Test Item Value Reference Range Interpretation Comments Ketone Quantitative (test code = Ketone 0.44 Quantitative) [place] [address]-11-05 16:02:00 Test Item Value Reference Range Interpretation Comments Ethanol Lvl (test code = Ethanol <3.0 mg/dL Lvl) [facility] HospitalHhsohexIXZPOFFLD9248-39-81 16:02:00 Test Item Value Reference Range Interpretation Comments Etoh (%) (test code = Etoh (%)) <0.003 % [facility] HospitalKkiycqjVNIFWCYKS1702-13-43 16:02:00 Test Item Value Reference Range Interpretation Comments Hgb A1C (test code = Hgb A1C) 5.1 [place] 760682-11-05 16:02:00 Test Item Value Reference Range Interpretation Comments LDL (Calculated) (test code = LDL 37 (Calculated)) [facility] HospitalQykrehqRLZVAYSJY9640-79-24 16:02:00 Test Item Value Reference Range Interpretation Comments VLDL (test code = VLDL) 39 1 [facility] HospitalPuotntoBVZFFVKZK8978-79-25 16:02:00 Test Item Value Reference Range Interpretation Comments Trig (test code = Trig) 195 [facility] HospitalWefvwoxVUCORLUXL7169-93-31 16:02:00 Test Item Value Reference Range Interpretation Comments Chol (test code = Chol) 101 [facility] HospitalCwunwhhNVALRXYOG4191-23-61 16:02:00 Test Item Value Reference Range Interpretation Comments HDL (test code = HDL) 25 [facility] HospitalEjczunhLRQBLBNBD8131-16-86 16:02:00 Test Item Value Reference Range Interpretation Comments Chol/HDL Ratio (test code = Chol/HDL 4.04 1 4.00-7.30 Ratio) [facility] HospitalHddotptWHKFRWTGB2691-87-54 16:02:00 Test Item Value Reference Range Interpretation Comments TSH (test code = TSH) 0.890 0.360-3.740 [facility] HospitalYeeptlcRWHZVIBJJ8891-06-19 16:02:00 Test Item Value Reference Range Interpretation Comments Lactic Acid Lvl (test code = Lactic 1.2 0.5-2.2 Acid Lvl) [facility] HospitalDkcicvgXTZWJBNETZ5630-22-03 16:02:00 Test Item Value Reference Range Interpretation Comments PTT (test code = PTT) 32.8 s 22.9-35.8 [place] 087812-11-05 16:02:00 Test Item Value Reference Range Interpretation Comments PT (test code = PT) 15.8 s 12.0-14.7 [place] 087812-11-05 16:02:00 Test Item Value Reference Range Interpretation Comments INR (test code = INR) 1.27 1 0.85-1.17 [place] 005862-11-05 16:02:00 Test Item Value Reference Range Interpretation Comments Hep A IgM (test code = Hep A NON-REACTIVE IgM) [facility]IRITOV8371[facility] 16:02:00 Test Item Value Reference Range Interpretation Comments Hep Bs Ag (test code = Hep Bs NON-REACTIVE Ag) [facility]kyebzrEORONKKUWV0485-87-15 16:02:00 Test Item Value Reference Range Interpretation Comments Hep B Core IgM (test code = Hep NON-REACTIVE B Core IgM) [place] 005862-11-05 16:02:00 Test Item Value Reference Range Interpretation Comments Hep C Ab (test code = Hep C Ab) NON-REACTIVE [place] [address]-11-05 16:02:00 Test Item Value Reference Range Interpretation Comments Hep Signal to Cut-Off (test code = Hep no gt Signal to Cut-Off) [facility] HospitalBdpowaxXQZMYZKQC7877-50-61 16:02:00 Test Item Value Reference Range Interpretation Comments Lipase Lvl (test code = Lipase Lvl) 99 73-393 [facility] HospitalSoujvdrNSQLTHDFC8815-56-62 16:02:00 Test Item Value Reference Range Interpretation Comments Procalcitonin Lvl (test 0.99 See_Comment [Au tomated message] code = Procalcitonin Lvl) Th e system which generated this result transmitted ref erence range: <=0.10. The reference range was not used to interpr et this result as normal/abnormal . [facility] HospitalCtxkqqtZWHFAHQDL9596-65-15 16:02:00 Test Item Value Reference Range Interpretation Comments Ketone Quantitative (test code = Ketone 0.44 Quantitative) [place] 760682-11-05 16:02:00 Test Item Value Reference Range Interpretation Comments Ethanol Lvl (test code = Ethanol <3.0 mg/dL Lvl) [place] 760682-11-05 16:02:00 Test Item Value Reference Range Interpretation Comments Etoh (%) (test code = Etoh (%)) <0.003 % [place] 760682-11-05 16:02:00 Test Item Value Reference Range Interpretation Comments Hgb A1C (test code = Hgb A1C) 5.1 [place] 760682-11-05 16:02:00 Test Item Value Reference Range Interpretation Comments LDL (Calculated) (test code = LDL 37 (Calculated)) [place] [address]-11-05 16:02:00 Test Item Value Reference Range Interpretation Comments VLDL (test code = VLDL) 39 1 [facility] HospitalFmmqohpFLYKRKMSR7644-12-81 16:02:00 Test Item Value Reference Range Interpretation Comments Lipase Lvl (test code = Lipase Lvl) 99 73-393 [place] [address]-11-05 16:02:00 Test Item Value Reference Range Interpretation Comments Procalcitonin Lvl (test 0.99 See_Comment [Au tomated message] code = Procalcitonin Lvl) e system which generated this result transmitted ref erence range: <=0.10. The reference range was not used to interpr et this result as normal/abnormal . [facility] HospitalJwdmwqfVIQWOGEPU5364-65-69 16:02:00 Test Item Value Reference Range Interpretation Comments Ketone Quantitative (test code = Ketone 0.44 Quantitative) [facility] HospitalLwwiwmgZYJORIYLQ2196-33-99 16:02:00 Test Item Value Reference Range Interpretation Comments Ethanol Lvl (test code = Ethanol <3.0 mg/dL Lvl) [facility] HospitalTbsgtduFWAPITRAK6854-71-76 16:02:00 Test Item Value Reference Range Interpretation Comments Etoh (%) (test code = Etoh (%)) <0.003 % [facility] HospitalIjuraobNHWTPBKSD2350-36-08 16:02:00 Test Item Value Reference Range Interpretation Comments Hgb A1C (test code = Hgb A1C) 5.1 [facility] HospitalSobplvsSKBPLMFOS8730-31-36 16:02:00 Test Item Value Reference Range Interpretation Comments LDL (Calculated) (test code = LDL 37 (Calculated)) [facility] HospitalFyqsjloFCAVDGRKM6488-81-98 16:02:00 Test Item Value Reference Range Interpretation Comments VLDL (test code = VLDL) 39 1 [facility] HospitalBonbpvoKKAXSAPGE0234-02-11 16:02:00 Test Item Value Reference Range Interpretation Comments Trig (test code = Trig) 195 [facility] HospitalNdscjnfMXWKRBVQJ0227-75-32 16:02:00 Test Item Value Reference Range Interpretation Comments Chol (test code = Chol) 101 [facility] HospitalImiffiiJPBIXDBJF4498-16-51 16:02:00 Test Item Value Reference Range Interpretation Comments HDL (test code = HDL) 25 [facility] HospitalIdpynrzPWEUEIFDY3769-28-12 16:02:00 Test Item Value Reference Range Interpretation Comments Chol/HDL Ratio (test code = Chol/HDL 4.04 1 4.00-7.30 Ratio) [facility]StoudtwBMOHTBBDE1294-37-16 16:02:00 Test Item Value Reference Range Interpretation Comments TSH (test code = TSH) 0.890 0.360-3.740 [facility] HospitalAmlhbliIYQJCRUGB8747-57-23 16:02:00 Test Item Value Reference Range Interpretation Comments Lactic Acid Lvl (test code = Lactic 1.2 0.5-2.2 Acid Lvl) [facility] HospitalOtdlypjFNFKETCAQC6431-10-67 16:02:00 Test Item Value Reference Range Interpretation Comments PTT (test code = PTT) 32.8 s 22.9-35.8 [facility] HospitalSpobtfzVNEBPXZCKZ7009-67-22 16:02:00 Test Item Value Reference Range Interpretation Comments PT (test code = PT) 15.8 s 12.0-14.7 [facility] HospitalYabjzcsIGTNMKGMFO0799-52-92 16:02:00 Test Item Value Reference Range Interpretation Comments INR (test code = INR) 1.27 1 0.85-1.17 [facility] HospitalFhamxmbJCCKFDTMZH1299-38-99 16:02:00 Test Item Value Reference Range Interpretation Comments Hep A IgM (test code = Hep A NON-REACTIVE IgM) [facility] HospitalUdodwfpWOMCRUGTDN3995-64-72 16:02:00 Test Item Value Reference Range Interpretation Comments Hep Bs Ag (test code = Hep Bs NON-REACTIVE Ag) [facility] HospitalBwqzuluAVLKACQDCK6087-40-03 16:02:00 Test Item Value Reference Range Interpretation Comments Hep B Core IgM (test code = Hep NON-REACTIVE B Core IgM) [facility]hs[facility]acNAWDHACYJE2262-07-69 16:02:00 Test Item Value Reference Range Interpretation Comments Hep C Ab (test code = Hep C Ab) NON-REACTIVE [facility] HospitalNidlcnhBKLEWQCQXT8418-06-72 16:02:00 Test Item Value Reference Range Interpretation Comments Hep Signal to Cut-Off (test code = Hep no gt Signal to Cut-Off) [facility] [employer] EMBWHVD6319-23-37 11:52:00 Test Item Value Reference Range Interpretation Comments ABO/Rh (test code = ABO/Rh) O POS [facility] [employer] SWTVRNB6697-88-17 11:52:00 Test Item Value Reference Range Interpretation Comments Antibody Scrn (test Negative (12/16/21 6:52 code = Antibody Scrn) AM) [facility] HospitalOlaqfjxXSONLZFFW6264-31-49 11:52:00 Test Item Value Reference Range Interpretation Comments Ca Ion WB (test code = Ca Ion WB) 1.05 1.05-1.25 [facility] HospitalVglbakwVPHMCUYVV8725-11-45 11:52:00 Test Item Value Reference Range Interpretation Comments Ca Ion at pH 7.4 WB (test code = Ca Ion 1.07 1.05-1.25 at pH 7.4 WB) [facility] HospitalVnywzebCJKUFUPTZQ5862-03-98 11:52:00 Test Item Value Reference Range Interpretation Comments RBC Morph (test code = Normal (12/16/21 6:52 RBC Morph) AM) [facility] HospitalGrkykqcAGIZRKOYSP1542-86-97 11:52:00 Test Item Value Reference Range Interpretation Comments Plt Morph (test code = Normal (12/16/21 6:52 Plt Morph) AM) [facility] RMZDGHS9498-00-22 11:52:00 Test Item Value Reference Range Interpretation Comments ABO/Rh (test code = ABO/Rh) O POS [facility] SBHKFTQ5976-40-23 11:52:00 Test Item Value Reference Range Interpretation Comments Antibody Scrn (test Negative (12/16/21 6:52 code = Antibody Scrn) AM) [facility] HospitalCxjmxpoVRUIIPYTW5853-01-51 11:52:00 Test Item Value Reference Range Interpretation Comments Ca Ion WB (test code = Ca Ion WB) 1.05 1.05-1.25 [facility] HospitalJbgpqyyWWACPLRIH2985-57-10 11:52:00 Test Item Value Reference Range Interpretation Comments Ca Ion at pH 7.4 WB (test code = Ca Ion 1.07 1.05-1.25 at pH 7.4 WB) [facility] HospitalHwdkxvmPUNBIBZCUP9691-11-12 11:52:00 Test Item Value Reference Range Interpretation Comments RBC Morph (test code = Normal (12/16/21 6:52 RBC Morph) AM) [facility] HospitalGdiqbpnQXQOIRKVDW3913-13-10 11:52:00 Test Item Value Reference Range Interpretation Comments Plt Morph (test code = Normal (12/16/21 6:52 Plt Morph) AM) [facility] MEPIZEY9439-75-87 11:52:00 Test Item Value Reference Range Interpretation Comments ABO/Rh (test code = ABO/Rh) O POS [facility] BOZZCGZ5741-99-89 11:52:00 Test Item Value Reference Range Interpretation Comments Antibody Scrn (test Negative (12/16/21 6:52 code = Antibody Scrn) AM) [facility] HospitalMxndohuBKGLPTSNZ2142-85-07 11:52:00 Test Item Value Reference Range Interpretation Comments Ca Ion WB (test code = Ca Ion WB) 1.05 1.05-1.25 [facility] HospitalGmgjyubEUURYJMBT7618-26-18 11:52:00 Test Item Value Reference Range Interpretation Comments Ca Ion at pH 7.4 WB (test code = Ca Ion 1.07 1.05-1.25 at pH 7.4 WB) [facility] HospitalMexghsnOXEMVWQDEH2661-16-12 11:52:00 Test Item Value Reference Range Interpretation Comments RBC Morph (test code = Normal (12/16/21 6:52 RBC Morph) AM) [facility] HospitalUubewpuWGDLDNUPTS4109-12-06 11:52:00 Test Item Value Reference Range Interpretation Comments Plt Morph (test code = Normal (12/16/21 6:52 Plt Morph) AM) [facility] TAJXFPJ6441-32-55 11:52:00 Test Item Value Reference Range Interpretation Comments ABO/Rh (test code = ABO/Rh) O POS [facility] GGRZJQC8264-14-02 11:52:00 Test Item Value Reference Range Interpretation Comments Antibody Scrn (test Negative (12/16/21 6:52 code = Antibody Scrn) AM) [facility] HospitalOmwlxbbYASZMMCRO8895-19-44 11:52:00 Test Item Value Reference Range Interpretation Comments Ca Ion WB (test code = Ca Ion WB) 1.05 1.05-1.25 [facility] HospitalDntiealSKIGEZGDV9282-47-19 11:52:00 Test Item Value Reference Range Interpretation Comments Ca Ion at pH 7.4 WB (test code = Ca Ion 1.07 1.05-1.25 at pH 7.4 WB) [facility] HospitalKobkxkdFIAEHOQCBX7226-94-67 11:52:00 Test Item Value Reference Range Interpretation Comments RBC Morph (test code = Normal (12/16/21 6:52 RBC Morph) AM) [facility] HospitalLjjzfbaWDWAJWYVQC5243-61-04 11:52:00 Test Item Value Reference Range Interpretation Comments Plt Morph (test code = Normal (12/16/21 6:52 Plt Morph) AM) [facility] XYSBQVD9764-02-02 11:52:00 Test Item Value Reference Range Interpretation Comments ABO/Rh (test code = ABO/Rh) O POS [facility] PMSRMJO8598-53-59 11:52:00 Test Item Value Reference Range Interpretation Comments Antibody Scrn (test Negative (12/16/21 6:52 code = Antibody Scrn) AM) [facility] HospitalQhaqbwjZDUKGXJIA2029-30-64 11:52:00 Test Item Value Reference Range Interpretation Comments Ca Ion WB (test code = Ca Ion WB) 1.05 1.05-1.25 [facility] HospitalVlacnozTQSIOCVZZ1575-10-09 11:52:00 Test Item Value Reference Range Interpretation Comments Ca Ion at pH 7.4 WB (test code = Ca Ion 1.07 1.05-1.25 at pH 7.4 WB) [facility] HospitalTkfqqviZZQZRYLPPS0760-71-37 11:52:00 Test Item Value Reference Range Interpretation Comments RBC Morph (test code = Normal (12/16/21 6:52 RBC Morph) AM) [facility] HospitalQdxgrllVZTHWRCHDA0932-81-73 11:52:00 Test Item Value Reference Range Interpretation Comments Plt Morph (test code = Normal (12/16/21 6:52 Plt Morph) AM) [facility] WTAHQDB8375-73-69 11:52:00 Test Item Value Reference Range Interpretation Comments ABO/Rh (test code = ABO/Rh) O POS [facility] AWOZNOY2288-55-62 11:52:00 Test Item Value Reference Range Interpretation Comments Antibody Scrn (test Negative (12/16/21 6:52 code = Antibody Scrn) AM) [facility] HospitalDlneczkSOCAXESBZ9151-98-53 11:52:00 Test Item Value Reference Range Interpretation Comments Ca Ion WB (test code = Ca Ion WB) 1.05 1.05-1.25 [facility] HospitalDsuhyzhWWZBROBFI2594-20-86 11:52:00 Test Item Value Reference Range Interpretation Comments Ca Ion at pH 7.4 WB (test code = Ca Ion 1.07 1.05-1.25 at pH 7.4 WB) [facility] HospitalUyuztxeICFNIGGTLB6470-36-40 11:52:00 Test Item Value Reference Range Interpretation Comments RBC Morph (test code = Normal (12/16/21 6:52 RBC Morph) AM) [facility] HospitalAjuchnuRDRROFIHKW7338-79-16 11:52:00 Test Item Value Reference Range Interpretation Comments Plt Morph (test code = Normal (12/16/21 6:52 Plt Morph) AM) [facility] ALHROTB7718-37-34 11:52:00 Test Item Value Reference Range Interpretation Comments ABO/Rh (test code = ABO/Rh) O POS [facility] DVCGKXV8876-85-11 11:52:00 Test Item Value Reference Range Interpretation Comments Antibody Scrn (test Negative (12/16/21 6:52 code = Antibody Scrn) AM) [facility] HospitalFnhukqeEJBGFSMEK2223-23-11 11:52:00 Test Item Value Reference Range Interpretation Comments Ca Ion WB (test code = Ca Ion WB) 1.05 1.05-1.25 [facility] HospitalKhaahltOUXABRDSJ6926-38-44 11:52:00 Test Item Value Reference Range Interpretation Comments Ca Ion at pH 7.4 WB (test code = Ca Ion 1.07 1.05-1.25 at pH 7.4 WB) [facility] HospitalXzqlowmKYMZYQBSNY6350-28-70 11:52:00 Test Item Value Reference Range Interpretation Comments RBC Morph (test code = Normal (12/16/21 6:52 RBC Morph) AM) [facility] HospitalNkksbxwIZBXBFAICY3588-25-68 11:52:00 Test Item Value Reference Range Interpretation Comments Plt Morph (test code = Normal (12/16/21 6:52 Plt Morph) AM) [facility] GXQKBSV9714-79-65 11:52:00 Test Item Value Reference Range Interpretation Comments ABO/Rh (test code = ABO/Rh) O POS [facility] JDPNCIK8566-13-15 11:52:00 Test Item Value Reference Range Interpretation Comments Antibody Scrn (test Negative (12/16/21 6:52 code = Antibody Scrn) AM) [facility] HospitalMhujfqaPWYVKVQUX3612-61-14 11:52:00 Test Item Value Reference Range Interpretation Comments Ca Ion WB (test code = Ca Ion WB) 1.05 1.05-1.25 [facility] HospitalJkebyllLEYAZZVYZ2829-53-97 11:52:00 Test Item Value Reference Range Interpretation Comments Ca Ion at pH 7.4 WB (test code = Ca Ion 1.07 1.05-1.25 at pH 7.4 WB) [facility] HospitalNaepitdBXFSTQTWLZ9407-88-75 11:52:00 Test Item Value Reference Range Interpretation Comments RBC Morph (test code = Normal (12/16/21 6:52 RBC Morph) AM) [facility] HospitalRrgtjctPBGIGDGYMU7367-08-91 11:52:00 Test Item Value Reference Range Interpretation Comments Plt Morph (test code = Normal (12/16/21 6:52 Plt Morph) AM) [facility] ZWWDHQK9204-20-14 11:52:00 Test Item Value Reference Range Interpretation Comments ABO/Rh (test code = ABO/Rh) O POS [facility] BQEBXVR4880-19-08 11:52:00 Test Item Value Reference Range Interpretation Comments Antibody Scrn (test Negative (12/16/21 6:52 code = Antibody Scrn) AM) [facility] HospitalCuvhfomTRFJIKXMA5439-35-91 11:52:00 Test Item Value Reference Range Interpretation Comments Ca Ion WB (test code = Ca Ion WB) 1.05 1.05-1.25 [facility] HospitalTpbgkjhIBHXREKRO6966-94-00 11:52:00 Test Item Value Reference Range Interpretation Comments Ca Ion at pH 7.4 WB (test code = Ca Ion 1.07 1.05-1.25 at pH 7.4 WB) [facility] HospitalRtprhywWQHNCAPRIM3403-53-31 11:52:00 Test Item Value Reference Range Interpretation Comments RBC Morph (test code = Normal (12/16/21 6:52 RBC Morph) AM) [facility] HospitalKymaxrbCHYYWFGSVF6248-10-78 11:52:00 Test Item Value Reference Range Interpretation Comments Plt Morph (test code = Normal (12/16/21 6:52 Plt Morph) AM) [facility] BUTUXPU9792-67-86 11:52:00 Test Item Value Reference Range Interpretation Comments ABO/Rh (test code = ABO/Rh) O POS [facility] YYJCUPS2891-99-15 11:52:00 Test Item Value Reference Range Interpretation Comments Antibody Scrn (test Negative (12/16/21 6:52 code = Antibody Scrn) AM) [facility] HospitalFoxwttnCLISHSGMJ0802-04-72 11:52:00 Test Item Value Reference Range Interpretation Comments Ca Ion WB (test code = Ca Ion WB) 1.05 1.05-1.25 [place] 760682-11-05 11:52:00 Test Item Value Reference Range Interpretation Comments Ca Ion at pH 7.4 WB (test code = Ca Ion 1.07 1.05-1.25 at pH 7.4 WB) [facility] HospitalTbvkfdoWEWGXHSSXQ9240-56-69 11:52:00 Test Item Value Reference Range Interpretation Comments RBC Morph (test code = Normal (12/16/21 6:52 RBC Morph) AM) [facility]OczdadqYWFCAOMKDX7150-13-27 11:52:00 Test Item Value Reference Range Interpretation Comments Plt Morph (test code = Normal (12/16/21 6:52 Plt Morph) AM) [facility] [id number] 11:52:00 Test Item Value Reference Range Interpretation Comments ABO/Rh (test code = ABO/Rh) O POS [facility] [id number] 11:52:00 Test Item Value Reference Range Interpretation Comments Antibody Scrn (test Negative (12/16/21 6:52 code = Antibody Scrn) AM) [id number] 11:52:00 Test Item Value Reference Range Interpretation Comments Ca Ion WB (test code = Ca Ion WB) 1.05 1.05-1.25 [facility] HospitalGgflkgwHSWCWNPHQ5498-54-42 11:52:00 Test Item Value Reference Range Interpretation Comments Ca Ion at pH 7.4 WB (test code = Ca Ion 1.07 1.05-1.25 at pH 7.4 WB) [facility] HospitalAmvppesRTTYSWBPQC7327-34-75 11:52:00 Test Item Value Reference Range Interpretation Comments RBC Morph (test code = Normal (12/16/21 6:52 RBC Morph) AM) [facility] HospitalJptjspoMAFTQXQDZZ4373-76-69 11:52:00 Test Item Value Reference Range Interpretation Comments Plt Morph (test code = Normal (12/16/21 6:52 Plt Morph) AM) [facility] [id number] 11:52:00 Test Item Value Reference Range Interpretation Comments ABO/Rh (test code = ABO/Rh) O POS [facility] [id number] 11:52:00 Test Item Value Reference Range Interpretation Comments Antibody Scrn (test Negative (12/16/21 6:52 code = Antibody Scrn) AM) [facility] HospitalDwwjkqoCVKPABMWV4885-35-88 11:52:00 Test Item Value Reference Range Interpretation Comments Ca Ion WB (test code = Ca Ion WB) 1.05 1.05-1.25 [facility] HospitalKvtigvfCOLABJLUT4605-89-66 11:52:00 Test Item Value Reference Range Interpretation Comments Ca Ion at pH 7.4 WB (test code = Ca Ion 1.07 1.05-1.25 at pH 7.4 WB) [facility] HospitalBfiwjjgCCKBXDHSKZ0786-76-18 11:52:00 Test Item Value Reference Range Interpretation Comments RBC Morph (test code = Normal (12/16/21 6:52 RBC Morph) AM) [facility] HospitalSzphdhiPLATIDJKOP2904-52-67 11:52:00 Test Item Value Reference Range Interpretation Comments Plt Morph (test code = Normal (12/16/21 6:52 Plt Morph) AM) [facility] [id number] 11:52:00 Test Item Value Reference Range Interpretation Comments ABO/Rh (test code = ABO/Rh) O POS [facility] [id number] 11:52:00 Test Item Value Reference Range Interpretation Comments Antibody Scrn (test Negative (12/16/21 6:52 code = Antibody Scrn) AM) [facility] HospitalOzomiedPIVLROMHZ4658-62-62 11:52:00 Test Item Value Reference Range Interpretation Comments Ca Ion WB (test code = Ca Ion WB) 1.05 1.05-1.25 [facility] HospitalBgcpfwwZXTPOROXB9742-62-84 11:52:00 Test Item Value Reference Range Interpretation Comments Ca Ion at pH 7.4 WB (test code = Ca Ion 1.07 1.05-1.25 at pH 7.4 WB) [facility] HospitalRjtywmgHCLZKYXNHI9020-33-93 11:52:00 Test Item Value Reference Range Interpretation Comments RBC Morph (test code = Normal (12/16/21 6:52 RBC Morph) AM) [facility] HospitalXfbejztECHIHVCERD5734-29-46 11:52:00 Test Item Value Reference Range Interpretation Comments Plt Morph (test code = Normal (12/16/21 6:52 Plt Morph) AM) [facility] [id number] 11:52:00 Test Item Value Reference Range Interpretation Comments ABO/Rh (test code = ABO/Rh) O POS [facility] [id number] 11:52:00 Test Item Value Reference Range Interpretation Comments Antibody Scrn (test Negative (12/16/21 6:52 code = Antibody Scrn) AM) [facility] HospitalBntjtlfPWOBTBMON9336-59-41 11:52:00 Test Item Value Reference Range Interpretation Comments Ca Ion WB (test code = Ca Ion WB) 1.05 1.05-1.25 [facility] HospitalCrcpfvuTJCYNDXUP3544-46-48 11:52:00 Test Item Value Reference Range Interpretation Comments Ca Ion at pH 7.4 WB (test code = Ca Ion 1.07 1.05-1.25 at pH 7.4 WB) [facility] HospitalOdhflomPFCQGQMTWL3106-70-85 11:52:00 Test Item Value Reference Range Interpretation Comments RBC Morph (test code = Normal (12/16/21 6:52 RBC Morph) AM) [facility] HospitalVsinmteTBSFBJRHPB6650-68-59 11:52:00 Test Item Value Reference Range Interpretation Comments Plt Morph (test code = Normal (12/16/21 6:52 Plt Morph) AM) [facility]2022-11-05 11:52:00 Test Item Value Reference Range Interpretation Comments ABO/Rh (test code = ABO/Rh) O POS [facility]2022-11-05 11:52:00 Test Item Value Reference Range Interpretation Comments Antibody Scrn (test Negative (12/16/21 6:52 code = Antibody Scrn) AM) [facility] HospitalOhuzhmySQHPGSCRQ9713-11-94 11:52:00 Test Item Value Reference Range Interpretation Comments Ca Ion WB (test code = Ca Ion WB) 1.05 1.05-1.25 [facility] HospitalXygwjohPTKZJASLZ5445-58-14 11:52:00 Test Item Value Reference Range Interpretation Comments Ca Ion at pH 7.4 WB (test code = Ca Ion 1.07 1.05-1.25 at pH 7.4 WB) [facility] HospitalXliwyvxBCYXOXDMPU3775-80-75 11:52:00 Test Item Value Reference Range Interpretation Comments RBC Morph (test code = Normal (12/16/21 6:52 RBC Morph) AM) [facility] HospitalEgzhuzeJSNMLGGIWX1032-34-94 11:52:00 Test Item Value Reference Range Interpretation Comments Plt Morph (test code = Normal (12/16/21 6:52 Plt Morph) AM) [facility] [id number] 11:52:00 Test Item Value Reference Range Interpretation Comments ABO/Rh (test code = ABO/Rh) O POS [facility] [id number] 11:52:00 Test Item Value Reference Range Interpretation Comments Antibody Scrn (test Negative (12/16/21 6:52 code = Antibody Scrn) AM) [facility] HospitalVjarbtxEIFOWBFIL5975-86-44 11:52:00 Test Item Value Reference Range Interpretation Comments Ca Ion WB (test code = Ca Ion WB) 1.05 1.05-1.25 [facility] HospitalJehkttnJCPTAFPSJ6932-41-28 11:52:00 Test Item Value Reference Range Interpretation Comments Ca Ion at pH 7.4 WB (test code = Ca Ion 1.07 1.05-1.25 at pH 7.4 WB) [facility] HospitalQyplnrkJCKDZEHCEX2404-75-96 11:52:00 Test Item Value Reference Range Interpretation Comments RBC Morph (test code = Normal (12/16/21 6:52 RBC Morph) AM) [facility] HospitalSrnaeyfQAFSIHRUKS0029-99-53 11:52:00 Test Item Value Reference Range Interpretation Comments Plt Morph (test code = Normal (12/16/21 6:52 Plt Morph) AM) [facility] METABOLIC [id number] 07:53:52 Test Item Value Reference Range Interpretation [...] not appl icable for dialysis patien ts [employer] Specialist ID - KEIKO BCBC W/PLT COUNT & AUTO IIZCBYHVEXYJ7121-24-42 06:30:27 Test Item Value Reference Range Interpretation [...] PERCENT (BEAKER) (test code = 2801) CT, [id number] 15:16:00Reason for exam:->diverticulitisWhat is the patient's sedation requirement?->No [facility]ation [facility] [place] : 1945 Sex: MFINAL REPORT CT [...] Ryan Thompson MDReport Verified Date/Time: 12/11/2021 15:16:47 [facility] METABOLIC [id number] 08:00:53 Test Item Value Reference Range Interpretation [...] not appl icable for dialysis patien ts [employer] Specialist ID - TOO MHEPATITIS B SURFACE LWUPFZH0364-30-62 07:02:25 Test Item Value Reference Range Interpretation Comments HEPATITIS B SURFACE ANTIGEN (2) Nonreactive Nonreactive (BEAKER) (test code = 6917) Specimen is considered negative for HBsAg.CBC W/PLT COUNT & AUTO EJVQOTJGYSJM2844-01-95 05:50:36 Test Item Value Reference Range Interpretation [...] 0.00-1.00 PERCENT (BEAKER) (test code = 2801) [id number] 15:25:56 Test Item Value Reference Range Interpretation Comments PHOSPHORUS (BEAKER) (test code = 4.2 mg/dL 2.3-4.7 604) [employer] Specialist ID - PIRADHA LC-REACTIVE KKSWABP0540-84-08 12:05:31 Test Item Value Reference Range Interpretation Comments C-REACTIVE PROTEIN (BEAKER) (test 11.71 mg/dL 0.00-0.50 H code = 676) [employer] Specialist ID - ALY LSARS-CoV2/RT-PCR (Asymptomatic ONLY)2021-12-10 11:51:55 Test Item Value Reference Interpretation Comments Range SARS-COV2/RT-PCR Negative Negative The SARS-Co V-2 (test code = target nucleic 39783-3) acids are not detected in thi s [...] revoked sooner. Fact Sheet for Healthcare Providers: https://www.RADEUM/Documents/Xp ert%20Xpress%20SAR S%20CoV-2/Fact%20S heets/302-3802%20S ARS-COV-2%20HEALTH CARE%20PROVIDERS%2 0FACT%20SHEET.pdf Fact Sheet for Healthcare Patients: https://www.RADEUM/Documents/Xp ert%20Xpress%20SAR S%20CoV-2/Fact%20S heets/302-3801%20S ARS-COV-2%20PATIEN T%20FACT%20SHEET.p df Lab Interpretation Normal (test code = 25862-8) [facility]10 11:51:55 Test Item Value Reference Interpretation Comments Range SARS-COV2/RT-PCR Negative Negative The SARS-Co V-2 (test code = target nucleic 50866-6) acids are not detected in thi s [...] om SARS-CoV-2 in a nasopharyngeal swab specimen [facility] from individual s suspected of COVID-19 by [...] revoked sooner. Fact Sheet for Healthcare Providers: https://www.RADEUM/Documents/Xp ert%20Xpress%20SAR S%20CoV-2/Fact%20S heets/302-3802%20S ARS-COV-2%20HEALTH CARE%20PROVIDERS%2 0FACT%20SHEET.pdf Fact Sheet for Healthcare Patients: https://www.RADEUM/Documents/Xp ert%20Xpress%20SAR S%20CoV-2/Fact%20S heets/302-3801%20S ARS-COV-2%20PATIEN T%20FACT%20SHEET.p df Lab Interpretation Normal (test code = 02013-5) [facility]2021-12-10 11:51:55 Test Item Value Reference Interpretation Comments Range SARS-COV2/RT-PCR Negative Negative The SARS-Co V-2 (test code = target nucleic 77875-4) acids are not detected in thi s [...] revoked sooner. Fact Sheet for Healthcare Providers: https://www.RADEUM/Documents/Xp ert%20Xpress%20SAR S%20CoV-2/Fact%20S heets/302-3802%20S ARS-COV-2%20HEALTH CARE%20PROVIDERS%2 0FACT%20SHEET.pdf Fact Sheet for Healthcare Patients: https://www.RADEUM/Documents/Xp ert%20Xpress%20SAR S%20CoV-2/Fact%20S heets/302-3801%20S ARS-COV-2%20PATIEN T%20FACT%20SHEET.p df Lab Interpretation Normal (test code = 11359-2) [facility]2021-12-10 11:51:55 Test Item Value Reference Interpretation Comments Range SARS-COV2/RT-PCR Negative Negative The SARS-Co V-2 (test code = target nucleic 38230-7) acids are not detected in thi s [...] revoked sooner. Fact Sheet for Healthcare Providers: https://www.RADEUM/Documents/Xp ert%20Xpress%20SAR S%20CoV-2/Fact%20S heets/302-3802%20S ARS-COV-2%20HEALTH CARE%20PROVIDERS%2 0FACT%20SHEET.pdf Fact Sheet for Healthcare Patients: https://www.RADEUM/Documents/Xp ert%20Xpress%20SAR S%20CoV-2/Fact%20S heets/302-3801%20S ARS-COV-2%20PATIEN T%20FACT%20SHEET.p df Lab Interpretation Normal (test code = 59157-2) [facility]2021-12-10 11:51:55 Test Item Value Reference Interpretation Comments Range SARS-COV2/RT-PCR Negative Negative The SARS-Co V-2 (test code = target nucleic 85006-3) acids are not detected in thi s [...] revoked sooner. Fact Sheet for Healthcare Providers: https://www.RADEUM/Documents/Xp ert%20Xpress%20SAR S%20CoV-2/Fact%20S heets/3023802%20S ARS-COV-2%20HEALTH CARE%20PROVIDERS%2 0FACT%20SHEET.pdf Fact Sheet for Healthcare Patients: https://www.RADEUM/Documents/Xp ert%20Xpress%20SAR S%20CoV-2/Fact%20S heets/302-3801%20S ARS-COV-2%20PATIEN T%20FACT%20SHEET.p df Lab Interpretation Normal (test code = 24121-6) [facility]2021-12-10 11:51:55 Test Item Value Reference Interpretation Comments Range SARS-COV2/RT-PCR Negative Negative The SARS-Co V-2 (test code = target nucleic 98256-3) acids are not detected in thi s [...] revoked sooner. Fact Sheet for Healthcare Providers: https://www.RADEUM/Documents/Xp ert%20Xpress%20SAR S%20CoV-2/Fact%20S heets/302-3802%20S ARS-COV-2%20HEALTH CARE%20PROVIDERS%2 0FACT%20SHEET.pdf Fact Sheet for Healthcare Patients: https://www.RADEUM/Documents/Xp ert%20Xpress%20SAR S%20CoV-2/Fact%20S heets/302-3801%20S ARS-COV-2%20PATIEN T%20FACT%20SHEET.p df Lab Interpretation Normal (test code = 89354-9) [facility]2021-12-10 11:51:55 Test Item Value Reference Interpretation Comments Range SARS-COV2/RT-PCR Negative Negative The SARS-Co V-2 (test code = target nucleic 77119-7) acids are not detected in thi s [...] revoked sooner. Fact Sheet for Healthcare Providers: https://www.RADEUM/Documents/Xp ert%20Xpress%20SAR S%20CoV-2/Fact%20S heets/302-3802%20S ARS-COV-2%20HEALTH CARE%20PROVIDERS%2 0FACT%20SHEET.pdf Fact Sheet for Healthcare Patients: https://www.RADEUM/Documents/Xp ert%20Xpress%20SAR S%20CoV-2/Fact%20S heets/302-3801%20S ARS-COV-2%20PATIEN T%20FACT%20SHEET.p df Lab Interpretation Normal (test code = 70173-0) [facility])2021-12-10 11:51:55 Test Item Value Reference Range Interpretation Comments SARS-COV2/RT-PCR Negative Negative The SARS-Co V-2 target (test code = nucleic acids a re not 9253187) detected in thi s specimen. Negative result [...] revoked sooner. Fact Sheet for Healthcare Providers: https://www.[facility].co m/Documents/Xpert%20Xpress%20SARS%20CoV-2/Fact%20Sheets/920-1181%26PQUU-CAE-8%20 HEALTHCARE%20PROVIDERS%20FACT%20SHEET.pdf Fact Sheet for Healthcare Patients: https://www.[employer]Commerce/Documents/Xpert%20Xp ress%20SARS%20CoV-2/Fact%20Sheets/101-6981%34PRDP-TOR-2%20PATIENT%20FACT%20SHEET .pdfBASIC METABOLIC [id number] 05:41:17 Test Item Value Reference Range Interpretation [...] not appl icable for dialysis patien ts [employer] Specialist ID - PIAYA LCBC W/PLT COUNT & AUTO IACDDFVNHBXW8505-21-37 04:58:29 Test Item Value Reference Range Interpretation [...] (BEAKER) (test code = 2801) HEMOGLOBIN AND [id number] 19:02:09 Test Item Value Reference Range Interpretation Comments HEMOGLOBIN (BEAKER) (test code = 11.6 GM/DL 13.7-17.5 L 410) HEMATOCRIT (BEAKER) (test code = 37.0 % 40.1-51.0 L 411) [employer] Specialist ID - [id number] mvqi2273-06-16 22:14:01 Test Item Value Reference Range Interpretation Comments Ventricular rate (test code = 253) Atrial rate (test code = 255) [place] interval (test code = 266) QRSD interval [...] of 12-JUN-2021 16:49,-No significant change was found- [address]2022-05-04 22:14:01 Test Item Value Reference Range Interpretation Comments Ventricular rate (test code = 253) Atrial rate (test code = 255) [place] interval (test code = 266) QRSD interval [...] of 12-JUN-2021 16:49,-No significant change was found- [address]2022-05-04 22:14:01 Test Item Value Reference Range Interpretation Comments Ventricular rate (test code = 253) Atrial rate (test code = 255) [place] interval (test code = 266) QRSD interval [...] of 12-JUN-2021 16:49,-No significant change was found- [address]2022-05-04 22:14:01 Test Item Value Reference Range Interpretation Comments Ventricular rate (test code = 253) Atrial rate (test code = 255) [place] interval (test code = 266) QRSD interval [...] of 12-JUN-2021 16:49,-No significant change was found- [place] [address] yken0893-03-07 22:14:01 Test Item Value Reference Range Interpretation Comments Ventricular rate (test code = 253) Atrial rate (test code = 255) [place] interval (test code = 266) QRSD interval [...] of 12-JUN-2021 16:49,-No significant change was found- [place] [address] [id number] 22:14:01 Test Item Value Reference Range Interpretation Comments Ventricular rate (test code = 253) Atrial rate (test code = 255) [place] interval (test code = 266) QRSD interval [...] of 12-JUN-2021 16:49,-No significant change was found- [address]2022-05-04 22:14:01 Test Item Value Reference Range Interpretation Comments Ventricular rate (test 63 code = 253) Atrial rate (test code 63 = 255) [place] interval (test code 216 = 266) QRSD [...] of 12-JUN-2021 16:49,-No significant change was found- [facility] AochnsczGESQ-EyW-7 (COVID-19) RNA [Presence] in Respiratory specimen by GREGORIO with probe [id number] 16:18:00 Test Item Value Reference Range Interpretation Comments SARS-CoV-2 (COVID-19) RNA Not detected [Presence] in Respiratory specimen by GREGORIO with probe detection (test code = 51049-5) Whether patient is employed in a Unknown healthcare setting (test code = 85496-8) Whether the patient has symptoms Unknown related to condition of interest (test code = 77995-0) Whether the patient was Unknown hospitalized for condition of interest (test code = 07782-5) Whether the patient was admitted Unknown to intensive care unit (ICU) for condition of interest (test code = 83201-5) Whether patient resides in a Unknown congregate care setting (test code = 80975-0) status (test code = Unknown 75465-9) Date and time of symptom onset Unknown (test code = 23399-5) [facility] Preliminary Interpretation - Not an [id number] 02:34:56 Test Item Value Reference Range Interpretation Comments JACQUELYN (test code = JACQUELYN) Arturo Farnsworth MD 06/13/2021 9:00 [facility] [place] Interpretation - Not an OrderPerformed by: Arturo Farnsworth MDAuthorized by: Arturo Farnsworth MD ECG reviewed by ED Physician in the absence of a aeronautical engineering officer: yes Interpretation: Interpretation: abnormal Rate: ECG rate: 65 ECG rate assessment: normal Rhythm: Rhythm: sinus rhythm and A-V block Ectopy: Ectopy: none QRS: QRS axis: Normal QRS intervals: NormalConduction: Conduction: abnormal 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 ST segments: ST segments: Non-specific Lab Interpretation Abnormal (test code = 63051-0) [facility] ED Preliminary Interpretation - Not an [id number] 02:34:56 Test Item Value Reference Range Interpretation Comments JACQUELYN (test code = JACQUELYN) Arturo Farnsworth MD 06/13/2021 9:00 [facility] [place] Interpretation - Not an OrderPerformed by: Arturo Farnsworth, MDAuthorized by: Arturo Farnsworth MD ECG reviewed by ED Physician in the absence of a aeronautical engineering officer: yes Interpretation: Interpretation: abnormal Rate: ECG rate: 65 ECG rate assessment: normal Rhythm: Rhythm: sinus rhythm and A-V block Ectopy: Ectopy: none QRS: QRS axis: Normal QRS intervals: NormalConduction: Conduction: abnormal 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 ST segments: ST segments: Non-specific Lab Interpretation Abnormal (test code = 92109-3) [facility] ED Preliminary Interpretation - Not an [id number] 02:34:56 Test Item Value Reference Range Interpretation Comments JACQUELYN (test code = JACQUELYN) Arturo Farnsworth MD 06/13/2021 9:00 [facility] [place] Preliminary Interpretation - Not an OrderPerformed by: Arturo Farnsworth, MDAuthorized by: Arturo Farnsworth MD ECG reviewed by ED Physician in the absence of a aeronautical engineering officer: yes Interpretation: Interpretation: abnormal Rate: ECG rate: 65 ECG rate assessment: normal Rhythm: Rhythm: sinus rhythm and A-V block Ectopy: Ectopy: none QRS: QRS axis: Normal QRS intervals: NormalConduction: Conduction: abnormal 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 ST segments: ST segments: Non-specific Lab Interpretation Abnormal (test code = 22828-9) [facility] ED Preliminary Interpretation - Not an [id number] 02:34:56 Test Item Value Reference Range Interpretation Comments JACQUELYN (test code = JACQUELYN) Arturo Farnsworth MD 06/13/2021 9:00 [facility] [place] Preliminary Interpretation - Not an OrderPerformed by: Arturo Farnsworth MDAuthorized by: Arturo Farnsworth MD ECG reviewed by ED Physician in the absence of a aeronautical engineering officer: yes Interpretation: Interpretation: abnormal Rate: ECG rate: 65 ECG rate assessment: normal Rhythm: Rhythm: sinus rhythm and A-V block Ectopy: Ectopy: none QRS: QRS axis: Normal QRS intervals: NormalConduction: Conduction: abnormal 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 ST segments: ST segments: Non-specific Lab Interpretation Abnormal (test code = 59083-8) [facility] Preliminary Interpretation - Not an [id number] 02:34:56 Test Item Value Reference Range Interpretation Comments JACQUELYN (test code = JACQUELYN) Arturo Farnsworth MD 06/13/2021 9:00 [facility] [place] Preliminary Interpretation - Not an OrderPerformed by: Arturo Farnsworth MDAuthorized by: Arturo Farnsworth MD ECG reviewed by ED Physician in the absence of a aeronautical engineering officer: yes Interpretation: Interpretation: abnormal Rate: ECG rate: 65 ECG rate assessment: normal Rhythm: Rhythm: sinus rhythm and A-V block Ectopy: Ectopy: none QRS: QRS axis: Normal QRS intervals: NormalConduction: Conduction: abnormal 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 ST segments: ST segments: Non-specific Lab Interpretation Abnormal (test code = 40980-2) [facility] ED Preliminary Interpretation - Not an [id number] 02:34:56 Test Item Value Reference Range Interpretation Comments JACQUELYN (test code = JACQUELYN) Arturo Farnsworth MD 06/13/2021 9:00 [facility] [place] Preliminary Interpretation - Not an OrderPerformed by: Arturo Farnsworth MDAuthorized by: Arturo Farnsworth MD ECG reviewed by ED Physician in the absence of a aeronautical engineering officer: yes Interpretation: Interpretation: abnormal Rate: ECG rate: 65 ECG rate assessment: normal Rhythm: Rhythm: sinus rhythm and A-V block Ectopy: Ectopy: none QRS: QRS axis: Normal QRS intervals: NormalConduction: Conduction: abnormal 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 ST segments: ST segments: Non-specific Lab Interpretation Abnormal (test code = 62432-9) [facility] ED Preliminary Interpretation - Not an [id number] 02:34:56 Test Item Value Reference Range Interpretation Comments JACQUELYN (test code = JACQUELYN) Arturo Farnsworth MD 06/13/2021 9:00 [facility] [place] Preliminary Interpretation - Not an OrderPerformed by: Arturo Farnsworth MDAuthorized by: Arturo Farnsworth MD ECG reviewed by ED Physician in the absence of a aeronautical engineering officer: yes Interpretation: Interpretation: abnormal Rate: ECG rate: 65 ECG rate assessment: normal Rhythm: Rhythm: sinus rhythm and A-V block Ectopy: Ectopy: none QRS: QRS axis: Normal QRS intervals: NormalConduction: Conduction: abnormal 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 ST segments: ST segments: Non-specific Lab Interpretation Abnormal (test code = 24981-5) [facility] CHEST 1 [id number] 14:08:00 [facility] : 1945 Sex: M FAX: Sekou Amezcua [phone] [place]: St: ADM Name: DARIEN GROSSMAN [facility] [place] : 1945 Age/S: 74/M [address] [place] [address] Blvd Unit #: [id number] Loc: [place] [address] Phys: Sekou Curtis MD Acct: [id number] Dis Date: Status: ADM IN PHONE #: [phone] Exam Date: 05/31/20201405 FAX #: [phone]: HD protocol, need to make sure no TB EXAMS: CPT CODE: [id number] XR CHEST 1 V 86491 EXAM: Single view AP chest. EXAM DATE: [...] Curtis Technologist: RT Marques(Cindy) Trnscrd Date/Time/By: 05/31/2020 (1408) : By: Enedelia Orig Print D/T: S: 05/31/2020 (9883) PAGE 1 Signed ReportBASIC METABOLIC [id number] 05:15:00 Test Item Value Reference Range Interpretation [...] code = 8.5 mg/dL 8.0-10.5 N CA) [id number] 05:15:00 Test Item Value Reference Range Interpretation Comments ALBUMIN (test code = ALB) 3.10 g/dL 3.4-5.0 L [id number] 05:15:00 Test Item Value Reference Range Interpretation Comments PREALBUMIN (test code = PREALB) 27.0 mg/dL 16.0-40.0 N [id number] 23:17:00 Test Item Value Reference Range Interpretation Comments GLUBED (test code = 95 MG/DL 70-110 N Performe d by certified GLUBED) 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 2 mg/dL BASIC METABOLIC [id number] 07:53:00 Test Item Value Reference Range Interpretation [...] 8.2 mg/dL 8.0-10.5 N CA) BASIC METABOLIC [id number] 04:28:00 Test Item Value Reference Range Interpretation [...] 9.3 mg/dL 8.0-10.5 N CA) CBC W/AUTO [id number] 08:31:00 Test Item Value Reference Range Interpretation [...] (test code NO = MDIFF) BASIC METABOLIC [id number] 07:59:00 Test Item Value Reference Range Interpretation [...] CA) - USG NDL PLACEMENT (Bxg/Asp)2020-05-24 15:12:00 [facility] 1945 Sex: M Name: DARIEN GROSSMAN [facility] : 1945 Age/S: 74 / M [address] [place] [address] Bl Unit #: [id number] Loc: [place] [address] Phys: Jonathan Sheikh [employer]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 INDICATION: Right [...] iterative reconstruction techniques. DLP: 566 mGy-cm FINDINGS: Vprad-tfy-xqzp amputation has been performed. A permeative pattern [...] Correlate with MRI as clinically indicated. SL: SGPearlH t 1801 Reported and signed by: Dominic Mena M.D. CC: Sekou Curtis; Jonathan Sheikh NP Technologist:David Aguirre, (R)(CT) CTDI: DLP: Trnscb Date/Time: 05/23/2020 (1801) [email or web address] Orig Print D/T: S: 05/23/2020 (1805) PAGE 1 Signed ReportBASIC METABOLIC [id number] 13:38:00 Test Item Value Reference Range Interpretation [...] code = 9.6 mg/dL 8.0-10.5 N CA) [id number] 13:38:00 Test Item Value Reference Range Interpretation Comments PHOSPHOROUS (test code = PHOS) 3.9 MG/DL 2.5-4.9 N [id number] 13:36:00 Test Item Value Reference Range Interpretation Comments ALBUMIN (test code = ALB) 3.20 g/dL 3.4-5.0 L [id number] 13:36:00 Test Item Value Reference Range Interpretation Comments PREALBUMIN (test code = PREALB) 14.3 mg/dL 16.0-40.0 L CBC W/AUTO [id number] 13:15:00 Test Item Value Reference Range Interpretation [...] (test code NO = MDIFF) SED RATE [id number] 08:19:00 Test Item Value Reference Range Interpretation Comments SED RATE [facility] (test code = 114 mm/hr 0-15 H SEDW) [id number] 08:09:00 Test Item Value Reference Range Interpretation Comments PREALBUMIN (test code = PREALB) 13.1 mg/dL 16.0-40.0 L C REACTIVE [id number] 08:08:00 Test Item Value Reference Range Interpretation Comments C REACTIVE PROTEIN (test code = 192.0 mg/L <10.0 H CRP) CBC W/AUTO [id number] 07:57:00 Test Item Value Reference Range Interpretation [...] MDIFF) - XR HIP W/PEL UNI 2+V [id number] 18:35:00 [facility] : 1945 Sex: M FAX: Sekou Amezcua [phone] [place]: St: [facility] FAX: Dusty Smiley [phone] Name: DARIEN GROSSMAN [facility] : 1945 Age/S: 74/M [address] [place] [address] Bl Unit #: [id number] Loc: [address] [place] [address] Phys: Dusty Smiley [employer] 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 Acct: [id number] Dis Date: Status: ADM IN PHONE #: [phone] Exam Date: 05/21/20201734 FAX #: [phone] Reason: left hip pain EXAMS: CPT CODE: [id number] XR HIP W/PEL UNI 2+[place] [address]37 2+ RADIOGRAPHIC VIEWS LEFT HIP INDICATION: left [...] NP Technologist: RT Jesus(R) Trnscrd Date/Time/By: 05/21/2020 (1834) : By: [email or web address] Orig Print D/T: S: 05/21/2020 (1837) PAGE 1 Signed ReportCBC W/AUTO [id number] 07:47:00 Test Item Value Reference Range Interpretation [...] (test code NO = MDIFF) BASIC METABOLIC [id number] 07:40:00 Test Item Value Reference Range Interpretation [...] 9.1 mg/dL 8.0-10.5 N CA) COMPREHENSIVE METABOLIC [id number] 06:03:00 Test Item Value Reference Range Interpretation [...] TOTAL (test code = ALKP) CBC W/AUTO [id number] 05:49:00 Test Item Value Reference Range Interpretation [...] (test code NO = MDIFF) BASIC METABOLIC [id number] 08:43:00 Test Item Value Reference Range Interpretation [...] code = 9.0 mg/dL 8.0-10.5 N CA) [id number] 08:43:00 Test Item Value Reference Range Interpretation Comments PHOSPHOROUS (test code = PHOS) 4.7 MG/DL 2.5-4.9 N CBC W/AUTO [id number] 08:29:00 Test Item Value Reference Range Interpretation [...] (test code NO = MDIFF) BASIC METABOLIC [id number] 07:42:00 Test Item Value Reference Range Interpretation [...] 9.5 mg/dL 8.0-10.5 N CA) BASIC METABOLIC [id number] 09:55:00 Test Item Value Reference Range Interpretation [...] code = 8.7 mg/dL 8.0-10.5 N CA) [id number] 09:55:00 Test Item Value Reference Range Interpretation Comments PHOSPHOROUS (test code = PHOS) 5.2 MG/DL 2.5-4.9 H [id number] 09:55:00 Test Item Value Reference Range Interpretation Comments MAGNESIUM (test code = MAG) 1.89 mg/dL 1.80-2.40 N CBC W/AUTO [id number] 09:28:00 Test Item Value Reference Range Interpretation [...] REQUIRED (test code = MDIFF) CBC W/AUTO [id number] 09:28:00 Test Item Value Reference Range Interpretation [...] (test code NO = MDIFF) ACUTE HEPATITIS [id number] 13:08:00 Test Item Value Reference Range Interpretation [...] COMMENTS: At start of hemodialysisAB HEPATITIS B [id number] 13:08:00 Test Item Value Reference Range Interpretation Comments AB HEPATITIS B 22.1 mIU/mL See_Comment Status of Im munity SURFACE (test code = Anti-HB s Level HBSAB) --- I nconsis tent with Immun ity 0.0 - 9.9Consistent with Immunity >9.9Pe rformed At: HD [facility] [id number] [place], [place] [id number] Salomón Leung MD Ph:[phone] [Automated mess age] The system [employer] generated this result transmitted ref erence range: Immunity >9.9. The reference r za was not used to interpret this result as normal/abnor mal. COMMENTS: At start of hemodialysisACUTE HEPATITIS [id number] 10:00:00 Test Item Value Reference Range Interpretation [...] COMMENTS: At start of hemodialysisAB HEPATITIS B [id number] 10:00:00 Test Item Value Reference Range Interpretation Comments AB HEPATITIS B SURFACE (test code = HBSAB) COMMENTS: At start of hemodialysisBASIC METABOLIC [id number] 09:23:00 Test Item Value Reference Range Interpretation [...] 8.5 mg/dL 8.0-10.5 N CA) CBC W/AUTO [id number] 09:16:00 Test Item Value Reference Range Interpretation [...] (test code NO = MDIFF) RENAL FUNCTION [id number] 06:58:00 Test Item Value Reference Range Interpretation [...] code = 3.0 MG/DL 2.5-4.9 N PHOS) [id number] 06:58:00 Test Item Value Reference Range Interpretation Comments MAGNESIUM (test code = MAG) 1.81 mg/dL 1.80-2.40 N CBC W/AUTO [id number] 06:49:00 Test Item Value Reference Range Interpretation [...] (test code NO = MDIFF) CBC W/AUTO [id number] 06:45:00 Test Item Value Reference Range Interpretation [...] code = MDIFF) - CT HEAD/BRAIN W/O [id number] 04:29:00 [facility] : 1945 Sex: M Name: DARIEN GROSSMAN [facility] [place] : 1945 Age/S: 74 / M [address] [place] [address] Unit #: [id number] Loc:[place] [address] Phys: Fausto Espino MD Acct: [id number] Dis Date: Status: ADM IN PHONE #: [phone] Exam Date: 05/13/2020 [facility] FAX #: [phone] Reason: TRAUMA EXAMS: CPT CODE: [id number] CT HEAD/BRAIN W/O CONT 98143 STUDY: - CT HEAD/BRAIN W/O CONT 05/13/2020 5:00 AM Ordering Physician: Fausto Espino MD Patient Name: DARIEN GROSSMAN MR: [id number] : 1945; Age: 74 years y/o Male [...] 1 Signed Report (CONTINUED) Name: DARIEN GROSSMAN [facility] : 1945 Age/S: 74 / M [address] [place] [address] Blvd Unit #: [id number] Loc: [place] [address] Phys: Fausto Espino MD Acct: [id number] Dis Date: Status: ADM IN PHONE #: [phone] Exam Date: 05/13/2020 0414FAX #: [phone] Reason: TRAUMA EXAMS: CPT CODE: [id number] CT HEAD/BRAIN W/O CONT 56346 <Continued> MASTOIDS: Clear. ORBITS: The globes are stable with an absent right lens. 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 SOFT TISSUES: No significant abnormality. SKULL: No acute fracture or suspicious osseous lesion. IMPRESSION: Mild diffuse age-appropriateatrophy is present associated with mild to moderate nonspecific periventricular low attenuation mostconsistent with old microangiopathic ischemic change. Stable acute left parafalcine subdural hematoma extending into the left tentorium. Minimal left to right midline shift is stable. SL: TPAINTER- H at 0429 Reported and signed by:Anoop Mays M.D. CC: Fausto Espino MD; Bennett Farnsworth MD Technologist:Yasir Crain, RT(R)(CT); Edgar CTDI: DLP: Trnscb Date/Time: 05/13/2020 (428) [email or web address] Orig Print D/T: S: 05/13/2020 (5446) PAGE 2 Signed ReportCOVID 19 Asymptomatic IH [id number] 03:09:00 Test Item Value Reference Range Interpretation [...] high or waivedcomplexit y tests. BASIC METABOLIC [id number] 02:14:00 Test Item Value Reference Range Interpretation [...] 8.5 mg/dL 8.0-10.5 N CA) HEPATIC FUNCTION [id number] 02:14:00 Test Item Value Reference Range Interpretation [...] 112 IUnit/L 20-125 N code = ALKP) [id number] 02:14:00 Test Item Value Reference Range Interpretation Comments LIPASE (test code = LIP) 185 U/L 13-57 H [id number] 02:14:00 Test Item Value Reference Range Interpretation [...] or Legal orEmployment ev aluation purposes. PROTHROMBIN [id number] 02:11:00 Test Item Value Reference Range Interpretation [...] (to prevent recurrent infar ct). THROMBOPLASTIN TIME [id number] 02:11:00 Test Item Value Reference Range Interpretation Comments THROMBOPLASTIN TIME 31.8 Seconds 25.0-39.5 N Therape utic Range: PARTIAL (test code = 50.4 - 88.3 Seconds PTT) Effective 05/27/2018 PROTHROMBIN [id number] 02:10:00 Test Item Value Reference Range Interpretation [...] (to prevent recurrent infar ct). THROMBOPLASTIN TIME [id number] 02:10:00 Test Item Value Reference Range Interpretation Comments THROMBOPLASTIN TIME PARTIAL (test Seconds 25.0-39.5 code = PTT) CBC W/AUTO [id number] 01:59:00 Test Item Value Reference Range Interpretation [...] NO = MDIFF) - CT HEAD/BRAIN W/O [id number] 23:15:00 [facility] : 1945 Sex: M Name: DARIEN GROSSMAN [facility] : 1945 Age/S: 74 / M [address] Unit #: [id number] Loc: [place] [address] Phys: Undefined Provider Acct: [id number] Dis Date: Status: REG REF PHONE #: [phone] Exam Date: 05/12/20209 FAX #: Reason: s/p fall Report Has Been Amended EXAMS: CPT: [id number] CT HEAD/BRAIN W/O CONT 30813 Addendum - 05/12/2020 SIGNED 05/12/2020 ADDENDUM: [id number] CT/CTHDBRWO Findings were notified to warehouse order puller Huyen at 11:15 PM on 05/12/2020. at 2315 Reported and signed by: Kaela Lindsey M.D. Transcribed: 05/12/2020 (2970) [email or web address] Report EXAM: - CT HEAD/BRAIN W/O CONT [...] GROSSMAN : 1945 Age/S: 74 / M [address] [facility] Unit #: [id number] Loc: [place] [address] Phys: Undefined Provider Acct: [id number] Dis Date: Status: REG REF PHONE #: [phone] Exam Date: 05/12/2020 6487 FAX #: Reason: s/p fall Report Has Been Amended EXAMS: CPT: [id number] CT HEAD/BRAIN W/O CONT 91367 <Continued> frontoparietal lobe without midline shift or [...] (2250) t.[email or web address].TH15 Orig Print D/T: S: 05/12/2020 (226) PAGE 2 Signed Report- CT HEAD/BRAIN W/O [id number] 23:15:00[facility] : 1945 Sex: M Name: DARIEN GROSSMAN [facility] : 1945 Age/S: 74 / M [address] [facility] [place] Unit #: [id number] Loc: [place] [address] Phys: Undefined Provider Acct: [id number] Dis Date: Status: REG REF PHONE #: [phone] Exam Date: 05/12/20202 FAX #: Reason: s/p fall Report Has Been Amended EXAMS: CPT: [id number] CT HEAD/BRAIN W/O CONT 16647 Addendum - 05/12/2020 SIGNED 05/12/2020 ADDENDUM: [id number] CT/CTHDBRWO Findings were notified to warehouse order puller Huyen at 11:15 PM on 05/12/2020. at 5104 Reported and signed by: Kaela Lindsey M.D. Transcribed: 05/12/2020 (3123) [email or web address] Report EXAM: - CT HEAD/BRAIN W/O CONT [...] GROSSMAN : 1945 Age/S: 74 / M [address] [place] Unit #: [id number] Loc: [place] [address] Phys: Undefined Provider Acct: [id number] Dis Date: Status: REG REF PHONE #: [phone] Exam Date: 05/12/2020 1259 FAX #: Reason: s/p fall Report Has Been Amended EXAMS: CPT: [id number] CT HEAD/BRAIN W/O CONT 17404 (Continued) frontoparietal lobe without midline shift or [...] PAGE 2 Signed Report- CT HEAD/BRAIN W/O [id number] 22:51:00 [facility] : 1945 Sex: M Name: DARIEN GROSSMAN [facility] : 1945 Age/S: 74 / M [address] [facility] [place] Unit #: [id number] Loc: [place] [address] Phys: Undefined Provider Acct: [id number] Dis Date: Status: REG REF PHONE #: [phone] Exam Date: 05/12/20201 FAX #: Reason: s/p fall EXAMS: CPT: [id number] CT HEAD/BRAIN W/O CONT 65555 EXAM: - CT HEAD/BRAIN W/O CONT LOCATION: H61 CLINICAL HISTORY/INDICATION: Fall with pain TECHNIQUE: Helical CT acquisition of the head was obtained without IV contrast. Images were reconstructed inthe axial, sagittal and coronal planes. This examination was performed according to our departmentaldose optimization program, which includes automated exposure control, adjustment of the mA and/or kVaccording to patient size, and/or use of iterative [...] SPACE: There is a hyperdense left parafalcine subduralhematoma which extends from the mid to posterior aspect of the interhemispheric fissure. The hematoma measures up to 7 mm in thickness. There is mild local mass effect on the medial left frontoparietallobe without midline shift or transtentorial herniation. SCALP: No abnormalities. BONES: No skull fractures or aggressive calvarial lesions. PARTIALLY IMAGED FACE /PARANASAL SINUSES: Paranasal sinuses are clear. MASTOID AIR CELLS: No effusion. IMPRESSION: 1. Acute 7 mm left parafalcine subdural hematoma without midline shift or transtentorial herniation. 2. Moderate chronic small vessel ischemic disease. PAGE 1 Signed Report (CONTINUED) Name: DARIEN GROSSMAN [facility] : 1945 Age/S: 74 / M [address] [place] Unit #: [id number] Loc: [place] [address] Phys: Undefined Provider Acct: [id number] Dis Date: Status: REG REF PHONE #: [phone] Exam Date: 05/12/20202213 FAX #: Reason: s/p fall EXAMS: CPT: [id number] CT HEAD/BRAIN W/O CONT 96301 (Continued) at 225 Reported and signed by: Kaela Lindsey M.D. CC: Technologist:RT Sharon(Cindy)(CT); ... CTDI: DLP: Trnscb Date/Time: 05/12/2020 (2250) [email or web address] Orig Print D/T: S: 05/12/2020 (2254) PAGE 2 Signed Report- CT C-SPINE W/O CONT 2020-05-12 22:40:00 [facility] : 1945 Sex: M Name: DARIEN GROSSMAN : 1945 Age/S: 74 / M [address] [address] Unit #: [id number] Loc: [place] [address] Phys: Undefined Provider Acct: [id number] Dis Date: Status: REG REF PHONE #: [phone] Exam Date: 05/12/2020 4751 FAX #: Reason: s/p fall EXAMS: CPT: [id number] CT C-SPINE W/O CONT 20586 EXAM: - CT C-SPINE W/O CONT LOCATION: [facility] CLINICAL HISTORY/INDICATION: Fall with pain. COMPARISON:None TECHNIQUE: [...] GROSSMAN : 1945 Age/S: 74 / M [address] [address] [place] Unit #: [id number] Loc: [place] [address] Phys: Undefined Provider Acct: [id number] Dis Date: Status: REG REF PHONE #: [phone] Exam Date: 05/12/20202213 FAX #: Reason: s/p fall EXAMS: CPT: [id number] CT C-SPINE W/O CONT 37108 <Continued> spinal canal stenosis. C3-C4: Diffuse disc [...] (2239) CarlitoTH15 Orig Print D/T: S: 05/12/2020 (8297) PAGE 2 Signed Report- CT C-SPINE W/O [id number] 22:40:00 [facility] : 1945 Sex: M Name: DARIEN GROSSMAN [facility] : 1945 Age/S: 74 / M [address] [address] [place] Unit #: [id number] Loc: [place] [address] Phys: Undefined Provider Acct: [id number] Dis Date: Status: REG REF PHONE #: [phone] Exam Date: 05/12/20202 FAX #: Reason: s/p fall EXAMS: CPT: [id number] CT C-SPINE W/O CONT 67195 EXAM: - CT C-SPINE W/O CONT LOCATION: [...] GROSSMAN : 1945 Age/S: 74 / M [address] [address] [place] Unit #: [id number] Loc: [place] [address] Phys: Undefined Provider Acct: [id number] Dis Date: Status: REG REF PHONE #: [phone] Exam Date: 05/12/20202213 FAX #: Reason: s/p fall EXAMS: CPT: [id number] CT C-SPINE W/O CONT 78119 (Continued) spinal canal stenosis. C3- C4: Diffuse [...] at 2240 Reported and signed by: Kaela Lindsey, M.D. CC: Technologist:RT Sharon(R)(CT); ... CTDI: DLP: Trnscb Date/Time: 05/12/2020 (2239) [email or web address] Orig Print D/T: S: 05/12/2020 (1256) PAGE 2 Signed ReportAFB [id number] 05:13:59 Test Item Value Reference Range Interpretation Comments AFB culture isolate No growth after 6 (test code = 543-9) weeks of incubation. [facility] [id number] 06:15:49 Test Item Value Reference Range Interpretation Comments Fungus culture isolate No growth after 4 (test code = 1441) weeks of incubation. [facility] HospitalOR FL < 1 [id number] 21:39:42EXAMINATION: OR FL < 1 HOUR C-arm [...] issued by the physician performing theprocedure.[id number] HospitalAna[facility] ryjrtzc2929-61-29 14:47:42 Test Item Value Reference Range Interpretation Comments Anaerobic culture No anaerobic organisms isolate (test code = isolated. 552) [facility] HospitalAFB [id number] 07:48:01 Test Item Value Reference Range Interpretation Comments AFB stain (test code = No acid fast bacilli 676-7) (AFB) seen. [facility] Hospital[facility] [id number] 07:48:01 Test Item Value Reference Range Interpretation Comments Aerobic culture isolate No growth after 3 (test code = 498) days. [facility] HospitalFungus [id number] 07:48:01 Test Item Value Reference Range Interpretation Comments Fungus smear (test code = No fungi observed. 1443) Carissa BeaulieuGram noinn9114-14-14 07:48:01Gram stain isolateFew WBC'sNo organisms seen Comment: Specimen InformationSpecimen Source: TissueSpecimen Site: Femur: Right femoral canal tissue [facility] [id number] 21:19:54 Test Item Value Reference Range Interpretation Comments Case number (test code = [id number]) Surgical pathology See link below for report (test code = PDF Lab Report 2255) Result status (test code This is Final Report = [id number]) for [id number] [facility] carotid fzcuol3406-11-25 00:39:00 [facility] Carotid Artery Duplex Report [address] [place] [address] For plant quality manager purposes, the categorization of the degree of the stenosis of this exam is based on criteria described in the IAC carotid stenosis grading white paper( www.intersocietal.org/Vascular) and Shagufta Andrews., Art ArmendarizB., et al. Carotid artery stenosis: chaves-scale and Doppler US diagnosis--Society of Radiologists in Ultrasound Consensus Conference. Radiology. 2003 Dec; 229(2):340-6. Pat.Name: DAIREN GROSSMAN Pat.ID: [id number] .Date: 03/23/2020 Refer.MD: BEAR MARIEE MD Exam Time: 11:25:00 AM Study Type:Carotid Height: 68in Weight: 186lb BSA: 1.98 m2 Age: 9 1945,74Y Sex: MALE Sonogrphr: NOEMI Chapman Pat. Stat.:Inpatient Room: [facility]73 Tape Vol: BE, CPT - 4: 16981 Echo Event ID:[id number] Order ID: [id number] Reason for Study:Cervical bruit, no prior carotid [...] PSV 125 cm/s Left Subclavian Subclavian PSV 312cm/s Subclavian EDV 66.6 cm/sRight SCA Prox SCA Prox PSV 172 cm/s SCA Prox EDV 22 cm/sLeft SCA Prox SCA Prox PSV 312 cm/s SCA Prox EDV 66 cm/sRight ICA/CCA Ratio ICA/CCA PSV 1.67 Left ICA/CCA Ratio ICA/CCA PSV 1.14 Signed 03/23/2020 06:39 PMAngel Liang MD, RPVIInterce, Radiology Results In - 03/23/2020 6:40 PM CST [facility] Carotid Artery Duplex Report [address] [place] [address] For qualityassurance purposes, the categorization of the degree of the stenosis of this exam is based on criteria described in the IAC carotid stenosis grading white paper( www.intersocietal.org/Vascular) and Shagufta Andrews., Ritu Armendariz., et al. Carotid artery stenosis: chaves-scale and Doppler US diagnosis--Society of Radiologists in Ultrasound Consensus Conference. Radiology. 2003 Nov; 229(2):340-6. Pat.Name: DARIEN GROSSMAN Pat.ID: [id number] .Date: 03/23/2020 Refer.MD: BEAR MARIEE MD Exam Time: 11:25:00 AM Study Type:Carotid Height: 68in Weight: 186lb BSA: 1.98 m2 Age: 9 1945,74Y Sex: MALE Sonogrphr:NOEMI Chapman Pat. Stat.:Inpatient Room: [address] Vol: BE, CPT - 4: 13788 Echo Event ID:[id number] Order ID: [id number] Reason for Study:Cervical bruit, no prior carotid artery assessment.History of anemia, ESRD and left arm dialysis. Procedures: Colorflow, Grayscale/2D, Pulsed wave DopplerRace: C SUMMARY: PHYSICAL ASSESSMENT Blood Pulses Carotid Pressure Carotid Temporal BruitRight 117/55 Left AV fistula CAROTID ARTERYSCANRIGHT: There is scattered hard plaque with intimal thickening in thecommon carotid artery. Thereis hard and calcified plaque noted in thebulb extending into the internal and external carotid arteri es. Thereis antegrade flow noted in the vertebral [...] signals consistentwith a more distal Arteriovenous fistula (AVF).PRELIMINARY FINDINGS1. 50-69% stenosis of the right internal [...] distal Arteriovenous fistula (AVF). PHYSICIAN INTERPRETATION 1. Moderate(50-69%) stenosis of right internal carotid artery.2. >50% stenosis of right external carotid artery.3. Non-stenotic calcific plaque in right common carotid artery.4. Mild (<50%) stenosis of leftinternal carotid artery. 5. Left subclavian artery with significant velocity elevation anddisturbed doppler signal consistent with distal AVF.6. Bilateral vertebral arteries with antegrade flow.-------- FINDINGS: Carotid Findings: Right Left Verteb.Flw Antegrade [...] 1.14 Signed 03/23/2020 06:39 PMAngel Liang MD, [facility] HospitalYqzksqprPkvsjn8031-34-57 19:25:28Madelyn Simpson 03/22/2020 1:45 [address]MAir[address] Date/Time: 03/22/2020 1:00 PM Location: OR Performed by: ADMISSION NURSE COORDINATOR/A AAnesthesiologist: Tahmina Mccloud/ADMISSION NURSE COORDINATOR/AA: Angeles Simpsonhorized by: Liu Mccloud Urgency: ElectiveDifficult [...] more First attemptusing Sheikh 2 blade by ADMISSION NURSE COORDINATOR. Second attempt with MD with MAC 3. Grade 3b view, secondary to neck stiffness.Grade 1 view with glidescope. ETT passed atraumatically.Transthoracic Echocardiogram Complete, (w Contrast, Strain and 3D if needed)2020-03-19 20:20:00 Echocardiography Report 6565 97 [address]Name: DARIEN GROSSMAN [facility].ID: [id number] .Date: 03/19/2020 Refer.MD: CLINT KING DO Exam Time: 11:43:00 AM Study Type:Routine Echo Height: 68in Weight: 185.61lb BSA: 1.98 m2 Age: 9 1945,74Y Sex: MALE BP: 110/57 HR: 70 bpm Sonogrphr: NILSON Conde Pat. Stat.:Inpatient Room: [facility] Study Status:Final Echo Event ID:[id number] Order ID: [id number] Reason for Study:Perioperative function eval without cardiac evidenceHistory / Clinical:Hypertension, Heart DiseaseProcedures: 2D Echo, Colorflow Doppler, 3DEcho, Strain, Portable,Intravenous Optison ContrastRace: C SUMMAR Y: There is mild concentric LV hypertrophy. LV [...] relaxation with normal LV filling pressures.Other: Insufficient TRjet to estimate PA systolic pressure. MEASUREMENTS: 2DParasternal [place] Ao An 2.2 cm LVPWd 1.3 cm Ao Rtd 3.4 cm Index 1.7 cm/m2 LA Ds 4.1 cm IVSd 1.3 cm RWT 0.5 LVIDd 5.1 cm Index 2.6 cm/m2 LV Mass 270.1 g (122-174) LVIDs 2.9 cm LVM Index 136.4 g/m2 LV%fs 43.1 % LVOT 2.2 cm LA Sng Plane LA Area 27.1 cm2 (8.8-23.4) LA Vol 79.4ml Index 40.1 ml/m2 LA LngAx 7.6 cm [...] Radiology Results In - 03/19/2020 2:20 PM CSTFormattingof this note might be different from the original. Echocardiography Report [address] [place] [address] Pat.Name: DARIEN GROSSMAN Pat.ID: [id number] St.Date: 03/19/2020 Refer.MD: CLINT KING DO Exam Time: 11:43:00 AM Study Type:Routine Echo Height: 68in Weight: 185.61lb BSA: 1.98 m2 Age: 9 1945,74Y Sex: MALE BP: 110/57 HR: 70 bpm Sonogrphr: NILSON Conde Pat. Stat.:Inpatient Room: [facility] Study Status:Final Echo Event ID:[id number] Order ID: [id number] Reason for Study:Perioperative function eval without cardiac evidenceHistory / Clinical:Hypertension, Heart DiseaseProcedures: 2D Echo, Colorflow Doppler, 3D Echo, Strain, Portable,Intravenous Optison ContrastRace: C SUMMARY: There is mildconcentric LV hypertrophy. LV EF is normal. Overallwall motion is normal.Diastolic dysfunction GradeI (Mild): Impaired relaxation with normalLV filling pressures. FIN DINGS: LV: LV size is normal. There is [...] estimate PA systolic pressure. MEASUREMENTS: 2DParasternal [place] Ao An2.2 cm LVPWd 1.3 cm Ao Rtd 3.4 cm Index 1.7 cm/m2 LA Ds 4.1 cm IVSd 1.3 cm RWT 0.5 LVIDd 5.1 cm Index 2.6 cm/m2 LV Mass 270.1 g (122-174) LVIDs 2.9 cm LVM Index 136.4 g/m2 LV%fs 43.1 % LVOT 2.2 cm LASng Plane LA Area 27.1 cm2 (8.8-23.4) LA [...] 3.7 l/m/m2 Signed 03/19/2020 02:20 Dodie Sarabia M.D.[facility] Lower Extremity Wo Contrast Gkqvw0882-26-36 13:07:30EXAMINATION: MRI LOWER EXTREMITY WO CONTRAST RIGHT [...] medially, beyond the cortex of the tibia.1D2RAD_PS08[facility] THIGH WO CONTRAST HUQHN6352-86-00 12:29:55EXAMINATION: MRI KNEE WO CONTRAST RIGHT, MRI [...] with the fluid surrounding the tibial stem. HMRM-GITKWT1Lb Interface, Radiology Results - 03/19/2020 6:33 AM [...] communicate with the fluid surrounding the tibial stem.HMRM-STZCFB0Ghxdzzasq [facility] Knee Right Wo Sygwegyc3916-72-17 12:29:55EXAMINATION: MRI KNEE WO CONTRAST RIGHT, MRI [...] with the fluid surrounding the tibial stem. [facility]-VCOEDK2Bm Interface, Radiology Results 03/19/2020 6:33 AM CST [...] with the fluid surro unding the tibial stem.[facility]-QNBRIU0Phbmaqazc HospitalUrine dxahtyg5050-39-15 23:38:48 Test Item Value Reference Range Interpretation Comments Urine culture (test code = SEE COMMENT [id number]) [facility] 1 Or 2 Vw Msuia8543-31-50 23:14:12EXAMINATION: XR KNEE 1 OR 2 VW RIGHT CLINICAL HISTORY: PAin and swelling COMPARISON: None IMPRESSION: There is a large zone of lucency around the stems of the femoral and tibial components of the totalknee replacement, consistent with loosening. Infection cannot be excluded. There is a joint effusionpresent. There is no acute fracture or dislocation. There are vascular calcifications. [facility]-[id number] Interface, Radiology Results Incoming - 03/18/2020 5:17 [...] acute fracture or dislocation. 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 Infection cannot be excluded. Bones are osteopenic. No definite acute fracture is seen. [id number] Interface, Radiology Results 03/18/2020 5:09 PM CST EXAMINATION: XR TIBIA FIBULA 2 VW RIGHTCLINICAL HISTORY: L leg cellulitisCOMPARISON: NoneIMPRESSION:There is evidence of loosening of tibial component of kneeprosthesis, with large zone of lucency around the stem. Infection cannot be excluded. Bones are osteopenic. No definite acute fracture is seen.[facility]-[id number] Hermann Katy HospitalOPOABRAZO [facility] [id number] 02:22:00 Test Item Value Reference Range Interpretation Comments TROPONIN I (test <0.012 See_Comment [Automated code = 4259127026) message] The system which generated this result [...] ? Lab Interpretation Normal (test code = 36336-3) [facility] Worth[facility] [id number] 02:20:00 Test Item Value Reference Range Interpretation Comments TROPONIN I (test <0.012 See_Comment [Automated code = 4849012090) message] The system which generated this result [...] ? Lab Interpretation Normal (test code = 42433-7) [facility]2020-10-01 00:21:00 Test Item Value Reference Range Interpretation Comments APPEARANCE (test code = Clear Clear 2554167626) COLOR (test code = Yellow Yellow 6454417566) PH (test code = 4.8-8.0 1647745262) SP GRAVITY (test code = 1.003-1.030 6560433875) GLU U QUAL (test code = Normal Normal 3545187362) BLOOD (test code = Negative Negative 4419375403) KETONES (test code = Negative Negative 9834287622) PROTEIN (test code = 100 mg/dL Negative A 2887-8) UROBILIN (test code = Normal Normal 5291759616) BILIRUBIN (test code = Negative Negative 0276048047) NITRITE (test code = Negative Negative 8020807219) LEUK AJ (test code = Negative Negative 4218301126) RBC/HPF (test code = See_Comment H [Autom ated message] 8989192063) The system [employer] generated this result transmit amado reference range : 0 - 3 HPF. The refe rence range was not u sed to interpret th is result as normal/abnormal . WBC/HPF (test code = <1 See_Comment [Autom ated message] 7515842087) The system [employer] generated this result transmit amado reference range : 0 - 5 HPF. The refe rence range was not u sed to interpret th is result as normal/abnormal . BACTERIA (test code = Few Negative A 1438937198) MUCOUS (test code = Slight Negative LPF A 0751755243) SQ EPITH (test code = <1 HPF 4305397093) Lab Interpretation (test Abnormal code = 28295-9) [facility]2020-10-01 00:21:00 Test Item Value Reference Range Interpretation Comments APPEARANCE (test code = Clear Clear 5976028721) COLOR (test code = Yellow Yellow 9596850700) PH (test code = 4.8-8.0 1482111542) SP GRAVITY (test code = 1.003-1.030 6705242336) GLU U QUAL (test code = Normal Normal 7788546871) BLOOD (test code = Negative Negative 5182561035) KETONES (test code = Negative Negative 7923181952) PROTEIN (test code = 100 mg/dL Negative A 2887-8) UROBILIN (test code = Normal Normal 4086512528) BILIRUBIN (test code = Negative Negative 7034886019) NITRITE (test code = Negative Negative 7253762698) LEUK AJ (test code = Negative Negative 7768925198) RBC/HPF (test code = See_Comment H [Autom ated message] 1421164478) The system [employer] generated this result transmit amado reference range : 0 - 3 HPF. The refe rence range was not u sed to interpret th is result as normal/abnormal . WBC/HPF (test code = <1 See_Comment [Autom ated message] 9771798121) The system [employer] generated this result transmit amado reference range : 0 - 5 HPF. The refe rence range was not u sed to interpret th is result as normal/abnormal . BACTERIA (test code = Few Negative A 4194753679) MUCOUS (test code = Slight Negative LPF A 5552931623) SQ EPITH (test code = <1 HPF 5324179433) Lab Interpretation (test Abnormal code = 28720-7) [facility] WorthXR CHEST 1 [id number] 23:24:26 No acute cardiopulmonary abnormality. Preliminary Report [...] study and agree with theabove report.[facility] WorthXR CHEST 1 [id number] 23:24:26 No acute cardiopulmonary abnormality. Preliminary Report [...] study and agree with theabove report.[facility] COMP. METABOLIC PANEL ([id number])2019-11-11 23:16:00 Test Item Value Reference Range Interpretation Comments NA (test code = 137 mmol/L 135-145 2863208979) K (test code = 4.0 mmol/L 3.5-5 7743718569) CL (test code = 94 mmol/L 98-108 L 6735241995) CO2 TOTAL (test code = 29 mmol/L 23-31 2315765956) AGAP (test code = 2-16 7457148843) BUN (test code = 63 mg/dL 7-23 H 2685511717) GLUCOSE (test code = 142 mg/dL 70-110 H 1848191064) CREATININE (test code = 5.82 mg/dL 0.6-1.25 H 9320058601) TOTAL BILI (test code = 0.4 mg/dL 0.1-1.6 1084061052) CALCIUM (test code = 9.8 mg/dL 8.6-10.6 7924031619) T PROTEIN (test code = 7.5 g/dL 6.3-8.2 6049455965) ALBUMIN (test code = 4.2 g/dL 3.5-5 6095958589) ALK PHOS (test code = 100 U/L 34-122 7348012316) ALTv (test code = 14 U/L 5-50 1742-6) AST(SGOT) (test code = 27 U/L 13-40 3238764991) eGFR Calculation mL/min/1.73m2 (Non-) (test code = 5406609343) eGFR Calculation mL/min/1.73m2 () (test code = 7923433203) JACQUELYN (test code = JACQUELYN) Association of [...] tests). Lab Interpretation Abnormal (test code = 50761-8) [facility] WorthMAGNESIUM2020-09-30 23:16:00 Test Item Value Reference Range Interpretation Comments MAGNESIUM (test code = 5249445702) 2.5 mg/dL 1.7-2.4 H Lab Interpretation (test code = Abnormal 78718-4) [facility]. METABOLIC PANEL (15984)2019-11-11 23:16:00 Test Item Value Reference Range Interpretation Comments NA (test code = 137 mmol/L 135-145 9046022503) K (test code = 4.0 mmol/L 3.5-5 8657693532) CL (test code = 94 mmol/L 98-108 L 4609268684) CO2 TOTAL (test code = 29 mmol/L 23-31 4804518741) AGAP (test code = 2-16 6202020133) BUN (test code = 63 mg/dL 7-23 H 8475202414) GLUCOSE (test code = 142 mg/dL 70-110 H 3771693703) CREATININE (test code = 5.82 mg/dL 0.6-1.25 H 4762002550) TOTAL BILI (test code = 0.4 mg/dL 0.1-1.7 4250393674) CALCIUM (test code = 9.8 mg/dL 8.6-10.6 7532693627) T PROTEIN (test code = 7.5 g/dL 6.3-8.2 6061382504) ALBUMIN (test code = 4.2 g/dL 3.5-5 3137968305) ALK PHOS (test code = 100 U/L 34-122 9571331398) ALTv (test code = 14 U/L 5-50 1742-6) AST(SGOT) (test code = 27 U/L 13-40 5714007299) eGFR Calculation mL/min/1.73m2 (Non-) (test code = 4983436557) eGFR Calculation mL/min/1.73m2 () (test code = 2984860529) JACQUELYN (test code = JACQUELYN) Association of [...] tests). Lab Interpretation Abnormal (test code = 61432-0) [facility]2020-09-30 23:16:00 Test Item Value Reference Range Interpretation Comments MAGNESIUM (test code = 6166037418) 2.5 mg/dL 1.7-2.4 H Lab Interpretation (test code = Abnormal 84374-2) [facility] WITH KEML3896-64-58 22:53:00 Test Item Value Reference Range Interpretation [...] RDW-SD (test code = 46.1 fL 38.5-51.6 78119-4) RDW-CV (test code = 13.9 % 12.1-15.4 788-0) PLT (test code = See_Comment [Automated 777-3) message] The sy stem which generated this result transmitted reference range : 150 - 328 10*3/ ?L. The reference r za was not used to interpret this result as normal/abnormal . MPV (test code = 8.7 fL 9.8-13 L 80527-1) NRBC/100 WBC (test See_Comment [Automat ed code = 7990837743) message] The system which generated this result transmitted reference range : 0.0 - 10.0 /100 WBCs. The refer ence range was not u sed to interpret th is result as normal/abnormal . NRBC x10^3 (test code <0.01 See_Comment [Auto mated = 2798136866) message] The s ystem which generated this result transmitted reference range : 10*3/?L. The reference range was not used to interpret this result as normal/abnormal . GRAN MAT (NEUT) % 79.0 % (test code = 770-8) IMM GRAN % (test code 0.50 % = 5198036444) LYMPH % (test code = 7.3 % 736-9) MONO % (test code = 9.1 % 5905-5) EOS % (test code = 3.8 % 713-8) BASO % (test code = 0.3 % 706-2) GRAN MAT x10^3(ANC) 6.93 10*3/uL 1.99-6.95 (test code = 3420865303) IMM GRAN x10^3 (test 0.04 10*3/uL 0-0.06 code = 6311476044) LYMPH x10^3 (test code 0.64 10*3/uL 1.09-3.23 L = 731-0) MONO x10^3 (test code 0.80 10*3/uL 0.36-1.02 = 742-7) EOS x10^3 (test code = 0.33 10*3/uL 0.06-0.53 711-2) BASO x10^3 (test code 0.03 10*3/uL 0.01-0.09 = 704-7) Lab Interpretation Abnormal (test code = 00217-4) [facility] WITH WSYF0465-82-20 22:53:00 Test Item Value Reference Range Interpretation [...] RDW-SD (test code = 46.1 fL 38.5-51.6 86912-4) RDW-CV (test code = 13.9 % 12.1-15.4 788-0) PLT (test code = See_Comment [Automated 777-3) message] The sy stem which generated this result transmitted reference range : 150 - 328 10*3/ ?L. The reference r za was not used to interpret this result as normal/abnormal . MPV (test code = 8.7 fL 9.8-13 L 35155-1) NRBC/100 WBC (test See_Comment [Automat ed code = 5748355636) message] The system which generated this result transmitted reference range : 0.0 - 10.0 /100 WBCs. The refer ence range was not u sed to interpret th is result as normal/abnormal . NRBC x10^3 (test code <0.01 See_Comment [Auto mated = 1794015188) message] The s ystem which generated this result transmitted reference range : 10*3/?L. The reference range was not used to interpret this result as normal/abnormal . GRAN MAT (NEUT) % 79.0 % (test code = 770-8) IMM GRAN % (test code 0.50 % = 9294198334) LYMPH % (test code = 7.3 % 736-9) MONO % (test code = 9.1 % 5905-5) EOS % (test code = 3.8 % 713-8) BASO % (test code = 0.3 % 706-2) GRAN MAT x10^3(ANC) 6.93 10*3/uL 1.99-6.95 (test code = 3488064007) IMM GRAN x10^3 (test 0.04 10*3/uL 0-0.06 code = 7458734899) LYMPH x10^3 (test code 0.64 10*3/uL 1.09-3.23 L = 731-0) MONO x10^3 (test code 0.80 10*3/uL 0.36-1.02 = 742-7) EOS x10^3 (test code = 0.33 10*3/uL 0.06-0.53 711-2) BASO x10^3 (test code 0.03 10*3/uL 0.01-0.09 = 704-7) Lab Interpretation Abnormal (test code = 19378-3) [facility]TREM[facility], LOWER WITHOUT CONTRAST, RIGHT 2017-01-25 19:47:00FINAL [...] MDRmarianela Verified Date/Time: 01/25/2017 19:47:23 Reading Location: [address] Reading Room RAD, HIP, 2 VIEWS, [...] Kumar Verified Date/Time: 01/25/2017 19:11:49 Reading Location: [address] [place] Chemistry 2014-02-18 16:35:50508Tdeqaukp QrrufxaZilljflje1264-71-34 16:35:08130Lprrusef TpoukwaBusvhckyu1095-83-92 16:35:0032[facility] SqtxhewDeixfwccv7813-43-19 16:35:87138Fffklmfa SfaemmeIlrmacues3788-12-50 16:35:10588 MEQ/LMemorial Jimmy Byjzeuzbn6220-07-97 16:35:004.3 MEQ/LMemorial KdadnkmGdcpsjkqi0052-00-31 16:35:002.5[facility] TvfiuciZzxsudorj1710-32-81 16:35:0029[facility] Ijmmy Gjmmszgns3050-06-12 16:35:00 Test Item Value Reference Range Interpretation Comments BUN/CREAT (test code = BUN/CREAT) 12 1 6-25 [facility] FceelbuPbredqigd5275-18-17 16:35:004.2[facility] HermannChemistry 2014-02-18 16:35:008.9[facility] TsgtdmkWbwhoczkj9128-06-43 16:35:0036[facility] EymjydbJokyiquxg8237-09-10 16:35:0025[facility] YlqjpzzSieedmrxd0980-88-12 16:35:48985Apqqvubv BlqgkmvBbpphdbkc6846-86-16 16:35:001.380[facility] Jimmy Vhsdkqxdf1909-11-20 16:35:002.00[facility] RmisimiOmcyrwmimc3906-34-12 16:35:00 13.9[facility] VcnvnoxChemisahyp1956-33-79 16:35:0041.4[facility] HermannHematology 2014-02-18 16:35:75360 K/CMMMemorial KafkyvaFvpxtjas4171-12-75 16:35:00Non ReactiveMemorial TxecjnhAxdnptqsa9696-41-81 16:35:24466Eddlekbc HermannChemistry 2014-02-18 16:35:57001Jrdenuig GuvyiyoNlrvrrhkn3992-36-24 16:35:0032[facility] ChwnjfvFjyenuzsw1018-52-46 16:35:28306Auhpjndg LmilgapUsvahajxu8252-43-19 16:35:46620 MEQ/LMemorial GhxijwkRrtnktbje9010-56-27 16:35:004.3 MEQ/LMemorial LhtfowlRxkorsdzi3625-31-05 16:35:002.5[facility] RfzjitnXmnirogqd1409-34-24 16:35:0029[facility] QiahwsuPsghlpeeo9022-49-40 16:35:00 Test Item Value Reference Range Interpretation Comments BUN/CREAT (test code = BUN/CREAT) 12 1 6-25 Memorial RdfozgbVtabpyqbv7028-95-44 16:35:004.2[facility] HermannChemistry 2014-02-18 16:35:008.9[facility] DtwdpxvRobnegnqa5200-34-14 16:35:0036[facility] GrltupiJouhasjmp9335-94-66 16:35:0025[facility] MohecldKozkofivy9274-60-33 16:35:44640Ywxdeiiz FnmewovNeyymafve9659-46-32 16:35:001.380[facility] Jimmy Abcguihts6880-26-61 16:35:002.00[facility] OrqrgkpWxzvxhrgrn6396-76-68 16:35:00 13.9[facility] CphzzdlVhxcyqierj3642-38-06 16:35:0041.4[facility] HermannHematology 2014-02-18 16:35:03295 K/CMMMemorial SjotjoaUcerfsbh1586-97-26 16:35:00Non ReactiveMemorial SpnfgduHaymqqlcn9501-08-25 20:45:71935Ubsioypy HermannChemistry 2013-01-23 20:45:39820Nxgqpmkf XfvdusdYwpygnlyr4241-02-29 20:45:0023[facility] XzlminhZuamheegl5987-17-86 20:45:31622Egwqoujr NnulyasQcpqvxnas3875-09-53 20:45:97215Joeuqjjb RarhabhXphosxmct6167-90-07 20:45:0023[facility] [place] Dhnamedro6889-95-22 20:45:00See Note mg/dLMemorial YwvfgvzMmxwwfkvd3335-99-44 20:45:72068 MEQ/LMemorial IlssamjVprpwozgm3626-90-79 20:45:004.5 MEQ/LMemorial DiqtzxsJkkqlhvij4328-06-12 20:45:001.8[facility] MgqoipxGkozmuyqv6987-19-61 20:45:0030[facility] IqpooxqHtlqaylwl3027-62-26 20:45:00 Test Item Value Reference Range Interpretation Comments BUN/CREAT (test code = BUN/CREAT) 17 1 6-25 Memorial OqeakqgZwtwrxnmp1449-20-75 20:45:004.2[facility] HermannChemistry 2013-01-23 20:45:009.3[facility] AwtddijQzdxhqbir8483-94-26 20:45:0031[facility] WlzyeleSnvvrmcxc4191-96-44 20:45:0020[facility] HkzasrkYhqstjpkw0147-18-08 20:45:72773Almjaoiu KtrppnoPbsxkkcac5721-65-33 20:45:001.390[facility] [place] Eeiomrcdq3491-54-39 20:45:001.33Mem[facility] CzxaamnRclriufqe1446-41-25 20:45:00430 Memorial RnbformAzyenuwnd9313-38-38 20:45:44178Sapxpzdl HermannChemistry 2013-01-23 20:45:0023[facility] GzmfpeqOgjrxrxhr5179-51-21 20:45:55594Twazkvef CwwazzdUeaxdcttf2130-57-90 20:45:57571Kqwhynpt GiplcziWjomddkiz5160-19-07 20:45:0023[facility] AvtennhBwcjavwcv8144-71-42 20:45:00See Note mg/dLMemorial UserejxRzcnyekwy9158-66-46 20:45:48400 MEQ/LMemorial AcooczyWguxrulav4651-56-83 20:45:004.5 MEQ/LMemorial LnopuvmUoqkpnbsa5926-60-70 20:45:001.8[facility] [place] Hyzhlicle5808-05-26 20:45:0030[facility] MjtutfbTfmivaqvj4215-72-17 20:45:00 Test Item Value Reference Range Interpretation Comments BUN/CREAT (test code = BUN/CREAT) 17 1 6-25 [facility] OujmudpFizvfiobh1937-55-41 20:45:004.2[facility] HermannChemistry 2013-01-23 20:45:009.3[facility] IzdxfusBfybhhmfz6396-54-07 20:45:0031[facility] JmdxejnBxtojldxb0141-82-59 20:45:0020[facility] XzdeeooYbtlpracj2138-93-84 20:45:18796Nyucicui ZthtcgxEgiifuxdp8141-28-43 20:45:001.390[facility] Jimmy Xviddsvvz3826-59-88 20:45:001.33[facility] MugycwwAbwbskrwh6774-73-47 15:12:571.57 [facility] CinodliFebdktlai1863-95-75 15:12:571.57[facility] HermannChemistry 2012-04-02 15:12:571.57[facility] JdbxqcqLrvknybwv2229-98-36 15:12:571.57[facility] [place] History and Physical Notes Date/Time Note Provider Source 2021-12-23 19:27:00-00:00 Madelyn Bedoya MD: PERFORM, MODIFY, [facility] MODIFY, MODIFY, SIGN, VERIFY, MODIFY, SIGNEvent Display: History and PhysicalAuthored Date: [id number] Care Note:75y/o WM w/ sig h/o diverticular bleed x 3 this year - received massive blood transfusion, ESRD M&F, HTN, HLD, CAD w/ prior stents x 3 in 2012 - on ASA and Plavix (off since last Sat), BPH, GERD, - presented to [facility] as a transfer for lower GIB - [...] 7.8 (DEC 16)Vitals Tmp(F)Pulse BP RR SpO2 KWM994/05 09:30 ---- 81 134/62 10 97 ---12/16 [...] as possible-Preserve sleep/ wake cycles w/ freq hz-solyjzyxloo-MF/ OT/ OOB->Chair.-Resume home Trazodone, Sertraline and Ambien [...] inclusive of any time spent performing invasive procedures.Madelyn Bedoya MDElectronically Signed: 12/17/21 05:23 2021-12-23 19:27:00-: Madelyn Bedoya MD: PERFORMEvent [facility] Display: History and PhysicalAuthored Date: [id number]: Ext - trace edema in L LE; R Madelyn Pickens MDElectronically Signed: 12/18/21 08:04 2021-12-23 19:27:00-: Madelyn Bedoya MD: PERFORM, MODIFY, [facility] MODIFY, MODIFY, SIGN, VERIFY, MODIFY, SIGNEvent Display: History and PhysicalAuthored Date: [id number] Care Note:75y/o WM w/ sig h/o diverticular bleed x 3 this year - received massive blood transfusion, ESRD M&F, HTN, HLD, CAD w/ prior stents x 3 in 2012 - on ASA and Plavix (off since last Sat), BPH, GERD, - presented to [facility] as a transfer for lower GIB - [...] 7.8 (DEC 16)Vitals Tmp(F)Pulse BP RR SpO2 RIL422/05 09:30 ---- 81 134/62 10 97 ---12/16 [...] as possible-Preserve sleep/ wake cycles w/ freq fl-ffamfcnkzcm-PA/ OT/ OOB->Chair.-Resume home Trazodone, Sertraline and Ambien [...] inclusive of any time spent performing invasive procedures.Madelyn Bedoya MDElectronically Signed: 12/17/21 05:23 2021-12-23 19::-: Madelyn Bedoya MD: PERFORMEvent [facility] Display: History and PhysicalAuthored Date: [id number]: Ext - trace edema in L LE; R Madelyn Pickens MDElectronically Signed: 12/18/21 08:04 2021-12-23 19::-: Madelyn Bedoya MD: PERFORM, MODIFY, [facility] MODIFY, MODIFY, SIGN, VERIFY, MODIFY, SIGNEvent Display: History and PhysicalAuthored Date: [id number] Care Note:75y/o WM w/ sig h/o diverticular bleed x 3 this year - received massive blood transfusion, ESRD M&F, HTN, HLD, CAD w/ prior stents x 3 in 2012 - on ASA and Plavix (off since last Sat), BPH, GERD, - presented to [facility] as a transfer for lower GIB - [...] 7.8 (DEC 16)Vitals Tmp(F)Pulse BP RR SpO2 TCZ346/05 09:30 ---- 81 134/62 10 97 ---12/16 [...] as possible-Preserve sleep/ wake cycles w/ freq gk-nxrbzvujhdt-SK/ OT/ OOB->Chair.-Resume home Trazodone, Sertraline and Ambien [...] inclusive of any time spent performing invasive procedures.Madelyn Bedoya MDElectronically Signed: 12/17/21 05:23 2021-12-23 19:27:00-:00 Madelyn Bedoya MD: [facility] Display: History and PhysicalAuthored Date: [id number]: Ext - trace edema in L LE; R Madelyn Pickens MDElectronically Signed: 12/18/21 08:04 2021-12-23 19:27:00-:00 Madelyn Bedoya MD: PERFORM, MODIFY, [facility] MODIFY, MODIFY, SIGN, VERIFY, MODIFY, SIGNEvent Display: History and PhysicalAuthored Date: [id number] Care Note:75y/o WM w/ sig h/o diverticular bleed x 3 this year - received massive blood transfusion, ESRD M&F, HTN, HLD, CAD w/ prior stents x 3 in 2011 - on ASA and Plavix (off since last Sat), BPH, GERD, - presented to [facility] as a transfer for lower GIB - [...] 7.8 (DEC 16)Vitals Tmp(F)Pulse BP RR SpO2 KBR755/05 09:30 ---- 81 134/62 10 97 ---12/16 [...] as possible-Preserve sleep/ wake cycles w/ freq qa-dfbqyomkijg-UA/ OT/ OOB->Chair.-Resume home Trazodone, Sertraline and Ambien [...] - 3 episodes of diverticular bleeding in ecent dx of diverticulitisH/o GERD-NPO for now-Dr. Juarez [...] inclusive of any time spent performing invasive procedures.Madelyn Bedoya MDElectronically Signed: 12/17/21 05:23 2021-12-23 19:27:00-: Madelyn Bedoya MD: [facility] Display: History and PhysicalAuthored Date: [id number]: Ext - trace edema in L LE; R Madelyn Pickens MDElectronically Signed: 12/18/21 08:04 2021-12-23 19:27:00-: Madelyn Bedoya MD: PERFORM, MODIFY, [facility] MODIFY, MODIFY, SIGN, VERIFY, MODIFY, SIGNEvent Display: History and PhysicalAuthored Date: [id number] Care Note:75y/o WM w/ sig h/o diverticular bleed x 3 this year - received massive blood transfusion, ESRD M&F, HTN, HLD, CAD w/ prior stents x 3 in 2011 - on ASA and Plavix (off since last Sat), BPH, GERD, - presented to [facility] as a transfer for lower GIB - [...] 7.8 (DEC 16)Vitals Tmp(F)Pulse BP RR SpO2 ALU972/05 09:30 ---- 81 134/62 10 97 ---12/16 [...] as possible-Preserve sleep/ wake cycles w/ freq mp-xabuskeyoec-FT/ OT/ OOB->Chair.-Resume home Trazodone, Sertraline and Ambien [...] - 3 episodes of diverticular bleeding in 2022Recent dx of diverticulitisH/o GERD-NPO for now-Dr. Juarez [...] inclusive of any time spent performing invasive procedures.Madelyn Bedoya MDElectronically Signed: 12/17/21 05:23 2021-12-23 19:27:00-00:00 Madelyn Bedoya MD: [facility] Display: History and PhysicalAuthored Date: [id number]: Ext - trace edema in L LE; R Madelyn Pickens MDElectronically Signed: 12/18/21 08:04 2021-12-23 19:27:00-00:00 Madelyn Bedoya MD: PERFORM, MODIFY, [facility] MODIFY, MODIFY, SIGN, VERIFY, MODIFY, SIGNEvent Display: History and PhysicalAuthored Date: [id number] Care Note:75y/o WM w/ sig h/o diverticular bleed x 3 this year - received massive blood transfusion, ESRD M&F, HTN, HLD, CAD w/ prior stents x 3 in 2012 - on ASA and Plavix (off since last Sat), BPH, GERD, - presented to [facility] as a transfer for lower GIB - [...] 7.8 (DEC 16)Vitals Tmp(F)Pulse BP RR SpO2 KKF687/05 09:30 ---- 81 134/62 10 97 ---12/16 [...] as possible-Preserve sleep/ wake cycles w/ freq fr-uecjjcfjusr-FB/ OT/ OOB->Chair.-Resume home Trazodone, Sertraline and Ambien [...] inclusive of any time spent performing invasive procedures.Madelyn Bedoya MDElectronically Signed: 12/17/21 05:23 2021-12-23 19:27:00-00:00 Madelyn Bedoya MD: [facility] Display: History and PhysicalAuthored Date: [id number]: Ext - trace edema in L LE; R Madelyn Pickens MDElectronically Signed: 12/18/21 08:04 2021-12-23 19:27:00-00:00 Madelyn Bedoya MD: PERFORM, MODIFY, [facility] MODIFY, MODIFY, SIGN, VERIFY, MODIFY, SIGNEvent Display: History and PhysicalAuthored Date: [id number] Care Note:75y/o WM w/ sig h/o diverticular bleed x 3 this year - received massive blood transfusion, ESRD M&F, HTN, HLD, CAD w/ prior stents x 3 in 2011 - on ASA and Plavix (off since last Sat), BPH, GERD, - presented to [facility] as a transfer for lower GIB - [...] 7.8 (DEC 16)Vitals Tmp(F)Pulse BP RR SpO2 RCR777/05 09:30 ---- 81 134/62 10 97 ---12/16 [...] as possible-Preserve sleep/ wake cycles w/ freq hb-vwzdrmswvam-KJ/ OT/ OOB->Chair.-Resume home Trazodone, Sertraline and Ambien [...] - 3 episodes of diverticular bleeding in ecent dx of diverticulitisH/o GERD-NPO for now-Dr. Juarez [...] inclusive of any time spent performing invasive procedures.Madelyn Bedoya MDElectronically Signed: 12/17/21 05:23 2021-12-23 19:27:00-: Madelyn Bedoya MD: [facility] Display: History and PhysicalAuthored Date: [id number]: Ext - trace edema in L LE; R Madelyn Pickens MDElectronically Signed: 12/18/21 08:04 2021-12-23 19:27:00-: Madelyn Bedoya MD: PERFORM, MODIFY, [facility] MODIFY, MODIFY, SIGN, VERIFY, MODIFY, SIGNEvent Display: History and PhysicalAuthored Date: [id number] Care Note:75y/o WM w/ sig h/o diverticular bleed x 3 this year - received massive blood transfusion, ESRD M&F, HTN, HLD, CAD w/ prior stents x 3 in 2012 - on ASA and Plavix (off since last Sat), BPH, GERD, - presented to [facility] as a transfer for lower GIB - [...] 7.8 (DEC 16)Vitals Tmp(F)Pulse BP RR SpO2 DLR449/05 09:30 ---- 81 134/62 10 97 ---12/16 [...] as possible-Preserve sleep/ wake cycles w/ freq me-rdufdousuuh-TU/ OT/ OOB->Chair.-Resume home Trazodone, Sertraline and Ambien [...] inclusive of any time spent performing invasive procedures.Madelyn Bedoya MDElectronically Signed: 12/17/21 05:23 2021-12-23 19:27:00-: Madelyn Bedoya MD: [facility] Display: History and PhysicalAuthored Date: [id number]: Ext - trace edema in L LE; R Madelyn Pickens MDElectronically Signed: 12/18/21 08:04 2021-12-23 19:27:00-: Madelyn Bedoya MD: PERFORM, MODIFY, [facility] MODIFY, MODIFY, SIGN, VERIFY, MODIFY, SIGNEvent Display: History and PhysicalAuthored Date: [id number] Care Note:75y/o WM w/ sig h/o diverticular bleed x 3 this year - received massive blood transfusion, ESRD M&F, HTN, HLD, CAD w/ prior stents x 3 in 2012 - on ASA and Plavix (off since last Sat), BPH, GERD, - presented to [facility] as a transfer for lower GIB - [...] 7.8 (DEC 16)Vitals Tmp(F)Pulse BP RR SpO2 NSW097/05 09:30 ---- 81 134/62 10 97 ---12/16 [...] as possible-Preserve sleep/ wake cycles w/ freq oc-qqbshdlsgpn-HR/ OT/ OOB->Chair.-Resume home Trazodone, Sertraline and Ambien [...] inclusive of any time spent performing invasive procedures.Madelyn Bedoya MDElectronically Signed: 12/17/21 05:23 2021-12-23 19:27:-: Madelyn Bedoya MD: [facility] Display: History and PhysicalAuthored Date: [id number]: Ext - trace edema in L LE; R Madelyn Pickens MDElectronically Signed: 12/18/21 08:04 2021-12-23 19:27:00-: Madelyn Bedoya MD: PERFORM, MODIFY, [facility] MODIFY, MODIFY, SIGN, VERIFY, MODIFY, SIGNEvent Display: History and PhysicalAuthored Date: [id number] Care Note:75y/o WM w/ sig h/o diverticular bleed x 3 this year - received massive blood transfusion, ESRD M&F, HTN, HLD, CAD w/ prior stents x 3 in 2011 - on ASA and Plavix (off since last Sat), BPH, GERD, - presented to [facility] as a transfer for lower GIB - [...] 7.8 (DEC 16)Vitals Tmp(F)Pulse BP RR SpO2 OFF651/05 09:30 ---- 81 134/62 10 97 ---12/16 [...] as possible-Preserve sleep/ wake cycles w/ freq ss-vscgllnmrij-FV/ OT/ OOB->Chair.-Resume home Trazodone, Sertraline and Ambien [...] inclusive of any time spent performing invasive procedures.Madelyn Bedoya MDElectronically Signed: 12/17/21 05:23 2021-12-23 19:27:00-: Madelyn Bedoya MD: [facility] Display: History and PhysicalAuthored Date: [id number]: Ext - trace edema in L LE; R Madelyn Pickens MDElectronically Signed: 12/18/21 08:04 2021-12-23 19::00-: Madelyn Bedoya MD: PERFORM, MODIFY, [facility] MODIFY, MODIFY, SIGN, VERIFY, MODIFY, SIGNEvent Display: History and PhysicalAuthored Date: [id number] Care Note:75y/o WM w/ sig h/o diverticular bleed x 3 this year - received massive blood transfusion, ESRD M&F, HTN, HLD, CAD w/ prior stents x 3 in 2011 - on ASA and Plavix (off since last Sat), BPH, GERD, - presented to [facility] as a transfer for lower GIB - [...] 7.8 (DEC 16)Vitals Tmp(F)Pulse BP RR SpO2 WKR395/05 09:30 ---- 81 134/62 10 97 ---12/16 [...] as possible-Preserve sleep/ wake cycles w/ freq qk-oggnlsijmbn-DX/ OT/ OOB->Chair.-Resume home Trazodone, Sertraline and Ambien [...] inclusive of any time spent performing invasive procedures.Madelyn Bedoya MDElectronically Signed: 12/17/21 05:23 2021-12-23 19:27:00-00:00 Madelyn Bedoya MD: [facility] Display: History and PhysicalAuthored Date: [id number]: Ext - trace edema in L LE; R Madelyn Pickens MDElectronically Signed: 12/18/21 08:04 2021-12-23 19:27:00-00:00 Madelyn Bedoya MD: PERFORM, MODIFY, [facility] MODIFY, MODIFY, SIGN, VERIFY, MODIFY, SIGNEvent Display: History and PhysicalAuthored Date: [id number] Care Note:75y/o WM w/ sig h/o diverticular bleed x 3 this year - received massive blood transfusion, ESRD M&F, HTN, HLD, CAD w/ prior stents x 3 in 2011 - on ASA and Plavix (off since last Sat), BPH, GERD, - presented to [facility] as a transfer for lower GIB - [...] 7.8 (DEC 16)Vitals Tmp(F)Pulse BP RR SpO2 MUT487/05 09:30 ---- 81 134/62 10 97 ---12/16 [...] as possible-Preserve sleep/ wake cycles w/ freq iy-qunirsvcosp-XB/ OT/ OOB->Chair.-Resume home Trazodone, Sertraline and Ambien [...] inclusive of any time spent performing invasive procedures.Madelyn Bedoya MDElectronically Signed: 12/17/21 05:23 2021-12-23 19:27:00-00:00 Madelyn Bedoya MD: [facility] Display: History and PhysicalAuthored Date: [id number]: Ext - trace edema in L LE; R Madelyn Pickens MDElectronically Signed: 12/18/21 08:04 2021-12-23 19:27:00-00:00 Madelyn Bedoya MD: PERFORM, MODIFY, [facility] MODIFY, MODIFY, SIGN, VERIFY, MODIFY, SIGNEvent Display: History and PhysicalAuthored Date: [id number] Care Note:75y/o WM w/ sig h/o diverticular bleed x 3 this year - received massive blood transfusion, ESRD M&F, HTN, HLD, CAD w/ prior stents x 3 in 2012 - on ASA and Plavix (off since last Sat), BPH, GERD, - presented to [facility] as a transfer for lower GIB - [...] 7.8 (DEC 16)Vitals Tmp(F)Pulse BP RR SpO2 HKN080/05 09:30 ---- 81 134/62 10 97 ---12/16 [...] as possible-Preserve sleep/ wake cycles w/ freq ic-iiljrgmwvtm-OG/ OT/ OOB->Chair.-Resume home Trazodone, Sertraline and Ambien [...] inclusive of any time spent performing invasive procedures.Madelyn Bedoya MDElectronically Signed: 12/17/21 05:23 2021-12-23 19:27:00-: Madelyn Bedoya MD: [facility] Display: History and PhysicalAuthored Date: [id number]: Ext - trace edema in L LE; R Madelyn Pickens MDElectronically Signed: 12/18/21 08:04 2021-12-23 19:27:00-: Madelyn Bedoya MD: PERFORM, MODIFY, [facility] MODIFY, MODIFY, SIGN, VERIFY, MODIFY, SIGNEvent Display: History and PhysicalAuthored Date: [id number] Care Note:75y/o WM w/ sig h/o diverticular bleed x 3 this year - received massive blood transfusion, ESRD M&F, HTN, HLD, CAD w/ prior stents x 3 in 2012 - on ASA and Plavix (off since last Sat), BPH, GERD, - presented to [facility] as a transfer for lower GIB - [...] 7.8 (DEC 16)Vitals Tmp(F)Pulse BP RR SpO2 PQJ698/05 09:30 ---- 81 134/62 10 97 ---12/16 [...] as possible-Preserve sleep/ wake cycles w/ freq kq-wgymsuabqvq-GK/ OT/ OOB->Chair.-Resume home Trazodone, Sertraline and Ambien [...] inclusive of any time spent performing invasive procedures.Madelyn Bedoya MDElectronically Signed: 12/17/21 05:23 2021-12-23 19:27:00-00:00 Madelyn Bedoya MD: [facility] Display: History and PhysicalAuthored Date: [id number]: Ext - trace edema in L LE; R Madelyn Pickens MDElectronically Signed: 12/18/21 08:04 Notes Date/Time Note Provider Source 2021-12-19 13:06:05-00:00 PROCEDURE INFORMATION: [facility] Exam: XR Abdomen Exam date and time: [...] identified. Sekou Santiago MD On 12/19/2021 14:58:37; CODY [id number] 2021-12-19 13:06:05-00:00 PROCEDURE INFORMATION: [facility] Exam: XR Abdomen Exam date and time: [...] identified. Sekou Santiago MD On 12/19/2021 14:58:37; CODY [id number] 2021-12-19 13:06:05-00:00 PROCEDURE INFORMATION: [facility] Exam: XR Abdomen Exam date and time: [...] identified. Sekou Santiago MD On 12/19/2021 14:58:37; CODY [id number] 2021-12-19 13:06:05-00:00 PROCEDURE INFORMATION: [facility] Exam: XR Abdomen Exam date and time: [...] 14:58:37; [id number]- [id number] 2021-12-19 13:06:05-00:00 PROCEDURE INFORMATION: [facility] Exam: XR Abdomen Exam date and time: [...] 14:58:37; [id number]- [id number] 2021-12-19 13:06:05-00:00 PROCEDURE INFORMATION: [facility] Exam: XR Abdomen Exam date and time: [...] identified. Sekou Santiago MD On 12/19/2021 14:58:37; CODY [id number] 2021-12-19 13:06:05-00:00 PROCEDURE INFORMATION: [facility] Exam: XR Abdomen Exam date and time: [...] identified. Sekou Santiago MD On 12/19/2021 14:58:37; CODY [id number] 2021-12-19 13:06:05-00:00 PROCEDURE INFORMATION: [facility] Exam: XR Abdomen Exam date and time: [...] identified. Sekou Santiago MD On 12/19/2021 14:58:37; MICHAEL [id number] 2021-12-19 13:06:05-00:00 PROCEDURE INFORMATION: [facility] Exam: XR Abdomen Exam date and time: [...] 14:58:37; [id number]- [id number] 2021-12-19 13:06:05-00:00 PROCEDURE INFORMATION: [facility] Exam: XR Abdomen Exam date and time: [...] 14:58:37; [id number]- [id number] 2021-12-19 13:06:05-00:00 PROCEDURE INFORMATION: [facility] Exam: XR Abdomen Exam date and time: [...] identified. Sekou Santiago MD On 12/19/2021 14:58:37; CODY [id number] 2021-12-19 13:06:05-00:00 PROCEDURE INFORMATION: [facility] Exam: XR Abdomen Exam date and time: [...] identified. Sekou Santiago MD On 12/19/2021 14:58:37; CODY [id number] 2021-12-19 13:06:05-00:00 PROCEDURE INFORMATION: [facility] Exam: XR Abdomen Exam date and time: [...] identified. Sekou Santiago MD On 12/19/2021 14:58:37; CODY [id number] 2021-12-19 13:06:05-00:00 PROCEDURE INFORMATION: [facility] Exam: XR Abdomen Exam date and time: [...] 14:58:37; [id number]- [id number] 2021-12-17 03:53:37-00:00 PROCEDURE INFORMATION: [facility] Exam: US Duplex Lower Extremity Veins, Bilateral [...] Nazia Sanford MD On 12/17/2021 05:39:24; [id number] 2021-12-17 03:53:37-00:00 PROCEDURE INFORMATION: [facility] Exam: US Duplex Lower Extremity Veins, Bilateral [...] thrombosis. Nazia Sanford MD On 12/17/2021 05:39:24; MICHAEL-[id number] 2021-12-17 03:53:37-00:00 PROCEDURE INFORMATION: [facility] Exam: US Duplex Lower Extremity Veins, Bilateral [...] thrombosis. Nazia Sanford MD On 12/17/2021 05:39:24; [id number] 2021-12-17 03:53:37-00:00 PROCEDURE INFORMATION: [facility] Exam: US Duplex Lower Extremity Veins, Bilateral [...] Nazia Sanford MD On 12/17/2021 05:39:24; VR-[id number] 2021-12-17 03:53:37-00:00 PROCEDURE INFORMATION: [facility] Exam: US Duplex Lower Extremity Veins, Bilateral [...] Nazia Sanford MD On 12/17/2021 05:39:24; VR-[id number] 2021-12-17 03:53:37-00:00 PROCEDURE INFORMATION: [facility] Exam: US Duplex Lower Extremity Veins, Bilateral [...] Nazia Sanford MD On 12/17/2021 05:39:24; VR-[id number] 2021-12-17 03:53:37-00:00 PROCEDURE INFORMATION: [facility] Exam: US Duplex Lower Extremity Veins, Bilateral [...] Nazia Sanford MD On 12/17/2021 05:39:24; VR-[id number] 2021-12-17 03:53:37-00:00 PROCEDURE INFORMATION: [facility] Exam: US Duplex Lower Extremity Veins, Bilateral [...] Nazia Sanford MD On 12/17/2021 05:39:24; VR-ARAHM0 [id number] 2021-12-17 03:53:37-00:00 PROCEDURE INFORMATION: [facility] Exam: US Duplex Lower Extremity Veins, Bilateral [...] Nazia Sanford MD On 12/17/2021 05:39:24; VR-[id number] 2021-12-17 03:53:37-00:00 PROCEDURE INFORMATION: [facility] Exam: US Duplex Lower Extremity Veins, Bilateral [...] Nazia Sanford MD On 12/17/2021 05:39:24; VR-[id number] 2021-12-17 03:53:37-00:00 PROCEDURE INFORMATION: [facility] Exam: US Duplex Lower Extremity Veins, Bilateral [...] Nazia Sanford MD On 12/17/2021 05:39:24; VR-ARAHM0 [id number] 2021-12-17 03:53:37-00:00 PROCEDURE INFORMATION: [facility] Exam: US Duplex Lower Extremity Veins, Bilateral [...] Nazia Sanford MD On 12/17/2021 05:39:24; VR-[id number] [id number] 2021-12-17 03:53:37-00:00 PROCEDURE INFORMATION: [facility] Exam: US Duplex Lower Extremity Veins, Bilateral [...] Nazia Sanford MD On 12/17/2021 05:39:24; [id number] 2021-12-17 03:53:37-00:00 PROCEDURE INFORMATION: [facility] Exam: US Duplex Lower Extremity Veins, Bilateral [...] Nazia Sanford MD On 12/17/2021 05:39:24; VR-[id number] 2021-12-16 18:43:05-00:00 Radiation Dose CTDIVOL = 0 (mGy): DLP = 3313 (mGy-cm) [facility] PROCEDURE INFORMATION: Exam: CTA Abdomen and Pelvis With Contrast, GI B leeding Exam date and time: 12/16/2021 6:43 PM Age: 76 years old Clinical indication: /eval for diverticular blee ding/ diverticulitis TECHNIQUE: Imaging protocol: Computed tomographic angiograp hy of the abdomen and pelvis with contrast. 3D rendering (Not supervised by radiologist): ME P and/or 3D reconstructed images were created [...] Surgically absent right main marina al artery. Emue-tb-pakianbu atherosclerosis in narrowing in the left main re nal artery. Right iliac arteries: Jtfc-gk-hhypyhzb atheroscl erosis throughout the right common iliac artery, right external iliac artery , and right internal iliac artery causing mild multifocal narrowing. Left iliac arteries: Wzel-vn-ioazuwvp atheroscle rosis throughout the left common iliac [...] arthrosis associated with multilevel disc bulges causing xcmn-mf-kciltsdi spinal canal narrowing and neural foraminal narrowing [...] Anoop Mays MD On 12/16/2021 20:07:19; VR-TP [id number] 2021-12-16 18:43:05-00:00 Radiation Dose CTDIVOL = 0 (mGy): DLP = 3313 (mGy-cm) [facility] PROCEDURE INFORMATION: Exam: CTA Abdomen and Pelvis With Contrast, GI B leeding Exam date and time: 12/16/2021 6:43 PM Age: 76 years old Clinical indication: /eval for diverticular blee ding/ diverticulitis TECHNIQUE: Imaging protocol: Computed tomographic angiograp hy of the abdomen and pelvis with contrast. 3D rendering (Not supervised by radiologist): ME P and/or 3D reconstructed images were created [...] Surgically absent right main marina al artery. Bkkx-iu-wwdvlzfi atherosclerosis in narrowing in the left main re nal artery. Right iliac arteries: Liui-by-cvloigrt atheroscl erosis throughout the right common iliac artery, right external iliac artery , and right internal iliac artery causing mild multifocal narrowing. Left iliac arteries: Ojpq-fh-essrugmj atheroscle rosis throughout the left common iliac [...] arthrosis associated with multilevel disc bulges causing thyi-ks-fuwodajq spinal canal narrowing and neural foraminal narrowing [...] Anoop Mays MD On 12/16/2021 20:07:19; EDDIE [id number] 2021-12-16 18:43:05-00:00 Radiation Dose CTDIVOL = 0 (mGy): DLP = 3313 (mGy-cm) [facility] PROCEDURE INFORMATION: Exam: CTA Abdomen and Pelvis With Contrast, GI B leeding Exam date and time: 12/16/2021 6:43 PM Age: 76 years old Clinical indication: /eval for diverticular blee ding/ diverticulitis TECHNIQUE: Imaging protocol: Computed tomographic angiograp hy of the abdomen and pelvis with contrast. 3D rendering (Not supervised by radiologist): ME P and/or 3D reconstructed images were created [...] Surgically absent right main marina al artery. Enpi-lu-angtsoqj atherosclerosis in narrowing in the left main re nal artery. Right iliac arteries: Dkvw-ev-elmzmlrc atheroscl erosis throughout the right common iliac artery, right external iliac artery , and right internal iliac artery causing mild multifocal narrowing. Left iliac arteries: Vpjz-ub-rmeukugs atheroscle rosis throughout the left common iliac [...] arthrosis associated with multilevel disc bulges causing egzq-zp-uskrcbai spinal canal narrowing and neural foraminal narrowing [...] Anoop Mays MD On 12/16/2021 20:07:19; EDDIE [id number] 2021-12-16 18:43:05-00:00 Radiation Dose CTDIVOL = 0 (mGy): DLP = 3313 (mGy-cm) [facility] PROCEDURE INFORMATION: Exam: CTA Abdomen and Pelvis With Contrast, GI B leeding Exam date and time: 12/16/2021 6:43 PM Age: 76 years old Clinical indication: /eval for diverticular blee ding/ diverticulitis TECHNIQUE: Imaging protocol: Computed tomographic angiograp hy of the abdomen and pelvis with contrast. 3D rendering (Not supervised by radiologist): ME P and/or 3D reconstructed images were created [...] Surgically absent right main marina al artery. Hzck-ud-krzneaui atherosclerosis in narrowing in the left main re nal artery. Right iliac arteries: Bjwx-bg-drftchhn atheroscl erosis throughout the right common iliac artery, right external iliac artery , and right internal iliac artery causing mild multifocal narrowing. Left iliac arteries: Ppfc-hq-ukejuysz atheroscle rosis throughout the left common iliac [...] arthrosis associated with multilevel disc bulges causing zkhn-zz-ubgvkscm spinal canal narrowing and neural foraminal narrowing [...] Anoop Mays MD On 12/16/2021 20:07:19; VR-TP [id number] 2021-12-16 18:43:05-00:00 Radiation Dose CTDIVOL = 0 (mGy): DLP = 3313 (mGy-cm) [facility] PROCEDURE INFORMATION: Exam: CTA Abdomen and Pelvis With Contrast, GI B leeding Exam date and time: 12/16/2021 6:43 PM Age: 76 years old Clinical indication: /eval for diverticular blee ding/ diverticulitis TECHNIQUE: Imaging protocol: Computed tomographic angiograp hy of the abdomen and pelvis with contrast. 3D rendering (Not supervised by radiologist): ME P and/or 3D reconstructed images were created [...] Surgically absent right main marina al artery. Kubr-qm-vtplxpyv atherosclerosis in narrowing in the left main re nal artery. Right iliac arteries: Pliq-bc-hxlgqtci atheroscl erosis throughout the right common iliac artery, right external iliac artery , and right internal iliac artery causing mild multifocal narrowing. Left iliac arteries: Evqy-iz-cxkesqkz atheroscle rosis throughout the left common iliac [...] arthrosis associated with multilevel disc bulges causing mtzw-hc-bypvghjt spinal canal narrowing and neural foraminal narrowing [...] Anoop Mays MD On 12/16/2021 20:07:19; EDDIE [id number] 2021-12-16 18:43:05-00:00 Radiation Dose CTDIVOL = 0 (mGy): DLP = 3313 (mGy-cm) [facility] PROCEDURE INFORMATION: Exam: CTA Abdomen and Pelvis With Contrast, GI B leeding Exam date and time: 12/16/2021 6:43 PM Age: 76 years old Clinical indication: /eval for diverticular blee ding/ diverticulitis TECHNIQUE: Imaging protocol: Computed tomographic angiograp hy of the abdomen and pelvis with contrast. 3D rendering (Not supervised by radiologist): ME P and/or 3D reconstructed images were created [...] Surgically absent right main marina al artery. Tgsk-an-uhyetuix atherosclerosis in narrowing in the left main re nal artery. Right iliac arteries: Rguq-lz-wcjkkchh atheroscl erosis throughout the right common iliac artery, right external iliac artery , and right internal iliac artery causing mild multifocal narrowing. Left iliac arteries: Dueb-pu-evorutxm atheroscle rosis throughout the left common iliac [...] arthrosis associated with multilevel disc bulges causing mgiq-cy-whezxyrx spinal canal narrowing and neural foraminal narrowing [...] Anoop Mays MD On 12/16/2021 20:07:19; VR-TP [id number] 2021-12-16 18:43:05-00:00 Radiation Dose CTDIVOL = 0 (mGy): DLP = 3313 (mGy-cm) [facility] PROCEDURE INFORMATION: Exam: CTA Abdomen and Pelvis With Contrast, GI B leeding Exam date and time: 12/16/2021 6:43 PM Age: 76 years old Clinical indication: /eval for diverticular blee ding/ diverticulitis TECHNIQUE: Imaging protocol: Computed tomographic angiograp hy of the abdomen and pelvis with contrast. 3D rendering (Not supervised by radiologist): ME P and/or 3D reconstructed images were created [...] Surgically absent right main marina al artery. Ubyx-ic-elfkqbwq atherosclerosis in narrowing in the left main re nal artery. Right iliac arteries: Cmtz-es-idpqqmww atheroscl erosis throughout the right common iliac artery, right external iliac artery , and right internal iliac artery causing mild multifocal narrowing. Left iliac arteries: Bedb-pa-znftbkec atheroscle rosis throughout the left common iliac [...] arthrosis associated with multilevel disc bulges causing lins-vc-gdgcxoxt spinal canal narrowing and neural foraminal narrowing [...] understood. Anoop Mays MD On 12/16/2021 20:07:19; MICHAEL-TP [id number] 2021-12-16 18:43:05-00:00 Radiation Dose CTDIVOL = 0 (mGy): DLP = 3313 (mGy-cm) [facility] PROCEDURE INFORMATION: Exam: CTA Abdomen and Pelvis With Contrast, GI B leeding Exam date and time: 12/16/2021 6:43 PM Age: 76 years old Clinical indication: /eval for diverticular blee ding/ diverticulitis TECHNIQUE: Imaging protocol: Computed tomographic angiograp hy of the abdomen and pelvis with contrast. 3D rendering (Not supervised by radiologist): ME P and/or 3D reconstructed images were created [...] Surgically absent right main marina al artery. Uvgj-rn-tefdoqtf atherosclerosis in narrowing in the left main re nal artery. Right iliac arteries: Vlfp-vo-upyzxxqf atheroscl erosis throughout the right common iliac artery, right external iliac artery , and right internal iliac artery causing mild multifocal narrowing. Left iliac arteries: Uesv-zt-xttptxoq atheroscle rosis throughout the left common iliac [...] arthrosis associated with multilevel disc bulges causing iphq-oq-jqiurdgc spinal canal narrowing and neural foraminal narrowing [...] Anoop Mays MD On 12/16/2021 20:07:19; EDDIE [id number] 2021-12-16 18:43:05-00:00 Radiation Dose CTDIVOL = 0 (mGy): DLP = 3313 (mGy-cm) [facility] PROCEDURE INFORMATION: Exam: CTA Abdomen and Pelvis With Contrast, GI B leeding Exam date and time: 12/16/2021 6:43 PM Age: 76 years old Clinical indication: /eval for diverticular blee ding/ diverticulitis TECHNIQUE: Imaging protocol: Computed tomographic angiograp hy of the abdomen and pelvis with contrast. 3D rendering (Not supervised by radiologist): ME P and/or 3D reconstructed images were created [...] Surgically absent right main marina al artery. Iqcg-ol-xnvqisbn atherosclerosis in narrowing in the left main re nal artery. Right iliac arteries: Hqil-uf-hvqqmgmo atheroscl erosis throughout the right common iliac artery, right external iliac artery , and right internal iliac artery causing mild multifocal narrowing. Left iliac arteries: Dbbz-sv-nnpvftsp atheroscle rosis throughout the left common iliac [...] arthrosis associated with multilevel disc bulges causing goid-wo-qatopmwb spinal canal narrowing and neural foraminal narrowing [...] Anoop Mays MD On 12/16/2021 20:07:19; VR-TP [id number] 2021-12-16 18:43:05-00:00 Radiation Dose CTDIVOL = 0 (mGy): DLP = 3313 (mGy-cm) [facility] PROCEDURE INFORMATION: Exam: CTA Abdomen and Pelvis With Contrast, GI B leeding Exam date and time: 12/16/2021 6:43 PM Age: 76 years old Clinical indication: /eval for diverticular blee ding/ diverticulitis TECHNIQUE: Imaging protocol: Computed tomographic angiograp hy of the abdomen and pelvis with contrast. 3D rendering (Not supervised by radiologist): ME P and/or 3D reconstructed images were created [...] Surgically absent right main marina al artery. Bwcd-uj-vifplwde atherosclerosis in narrowing in the left main re nal artery. Right iliac arteries: Erlh-uf-zgdeisst atheroscl erosis throughout the right common iliac artery, right external iliac artery , and right internal iliac artery causing mild multifocal narrowing. Left iliac arteries: Ymlm-md-dlmsprhp atheroscle rosis throughout the left common iliac [...] arthrosis associated with multilevel disc bulges causing zftw-qf-jcmjdsmp spinal canal narrowing and neural foraminal narrowing [...] understood. Anoop Mays MD On 12/16/2021 20:07:19; MICHAEL-TP [id number] 2021-12-16 18:43:05-00:00 Radiation Dose CTDIVOL = 0 (mGy): DLP = 3313 (mGy-cm) [facility] PROCEDURE INFORMATION: Exam: CTA Abdomen and Pelvis With Contrast, GI B leeding Exam date and time: 12/16/2021 6:43 PM Age: 76 years old Clinical indication: /eval for diverticular blee ding/ diverticulitis TECHNIQUE: Imaging protocol: Computed tomographic angiograp hy of the abdomen and pelvis with contrast. 3D rendering (Not supervised by radiologist): ME P and/or 3D reconstructed images were created [...] Surgically absent right main marina al artery. Iajn-th-ytkoluyr atherosclerosis in narrowing in the left main re nal artery. Right iliac arteries: Jfdl-zf-jxlzewqj atheroscl erosis throughout the right common iliac artery, right external iliac artery , and right internal iliac artery causing mild multifocal narrowing. Left iliac arteries: Oznf-kv-jcjrqjvu atheroscle rosis throughout the left common iliac [...] arthrosis associated with multilevel disc bulges causing emyr-gl-jdeseihn spinal canal narrowing and neural foraminal narrowing [...] Anoop Mays MD On 12/16/2021 20:07:19; EDDIE [id number] 2021-12-16 18:43:05-00:00 Radiation Dose CTDIVOL = 0 (mGy): DLP = 3313 (mGy-cm) [facility] PROCEDURE INFORMATION: Exam: CTA Abdomen and Pelvis With Contrast, GI B leeding Exam date and time: 12/16/2021 6:43 PM Age: 76 years old Clinical indication: /eval for diverticular blee ding/ diverticulitis TECHNIQUE: Imaging protocol: Computed tomographic angiograp hy of the abdomen and pelvis with contrast. 3D rendering (Not supervised by radiologist): ME P and/or 3D reconstructed images were created [...] Surgically absent right main marina al artery. Hddy-nb-rzdekvqq atherosclerosis in narrowing in the left main re nal artery. Right iliac arteries: Qjeq-hn-jademrzr atheroscl erosis throughout the right common iliac artery, right external iliac artery , and right internal iliac artery causing mild multifocal narrowing. Left iliac arteries: Dijs-va-ruoluvgf atheroscle rosis throughout the left common iliac [...] arthrosis associated with multilevel disc bulges causing tviq-vf-faqyesdv spinal canal narrowing and neural foraminal narrowing [...] Anoop Mays MD On 12/16/2021 20:07:19; VR-TP [id number] 2021-12-16 18:43:05-00:00 Radiation Dose CTDIVOL = 0 (mGy): DLP = 3313 (mGy-cm) [facility] PROCEDURE INFORMATION: Exam: CTA Abdomen and Pelvis With Contrast, GI B leeding Exam date and time: 12/16/2021 6:43 PM Age: 76 years old Clinical indication: /eval for diverticular blee ding/ diverticulitis TECHNIQUE: Imaging protocol: Computed tomographic angiograp hy of the abdomen and pelvis with contrast. 3D rendering (Not supervised by radiologist): ME P and/or 3D reconstructed images were created [...] Surgically absent right main marina al artery. Uvcc-ne-nvajeuxs atherosclerosis in narrowing in the left main re nal artery. Right iliac arteries: Alxn-qn-xvskxmpj atheroscl erosis throughout the right common iliac artery, right external iliac artery , and right internal iliac artery causing mild multifocal narrowing. Left iliac arteries: Puzz-oi-euviawbl atheroscle rosis throughout the left common iliac [...] arthrosis associated with multilevel disc bulges causing hkfn-du-joyjwqoh spinal canal narrowing and neural foraminal narrowing [...] Anoop Mays MD On 12/16/2021 20:07:19; EDDIE [id number] 2021-12-16 18:43:05-00:00 Radiation Dose CTDIVOL = 0 (mGy): DLP = 3313 (mGy-cm) [facility] PROCEDURE INFORMATION: Exam: CTA Abdomen and Pelvis With Contrast, GI B leeding Exam date and time: 12/16/2021 6:43 PM Age: 76 years old Clinical indication: /eval for diverticular blee ding/ diverticulitis TECHNIQUE: Imaging protocol: Computed tomographic angiograp hy of the abdomen and pelvis with contrast. 3D rendering (Not supervised by radiologist): ME P and/or 3D reconstructed images were created [...] Surgically absent right main marina al artery. Lrwy-hq-mtfodsti atherosclerosis in narrowing in the left main re nal artery. Right iliac arteries: Ixgz-gr-exhviuji atheroscl erosis throughout the right common iliac artery, right external iliac artery , and right internal iliac artery causing mild multifocal narrowing. Left iliac arteries: Uwkw-tt-totalwlx atheroscle rosis throughout the left common iliac [...] arthrosis associated with multilevel disc bulges causing laci-rx-kpnpqnam spinal canal narrowing and neural foraminal narrowing [...] understood. Anoop Mays MD On 12/16/2021 20:07:19; MICHAEL-TP [id number] 2020-06-02 11:10:00-00:00 [facility] ([facility]) Discharge Summary REPORT#:[id number] REPORT STATUS: Signed DATE:06/02/20 TIME: 1110 PATIENT: DARIEN GROSSMAN UNIT #: [id number] ROOM/BED: [place] [address] : 45 AGE: 74 SEX: M ATTEND: Rosa Curtis MD ADM AUTHOR: Danny Keith MD * ALL edits or amendments must be made on the el [employer]/computer document * PCP PCP PCP: PCP: No [...] CT of the right femur without contrast: Gqcmz-srg-nffp amputation changes with complex soft tissue fluid co llection at the stump site. There is loss [...] O2 Delivery Room air 05/31 0703 Temp 37.0 05/31 0703 Pulse 57 05/31 0703 Resp 18 05/31 0703 PATIENT WEIGHT: Weight (lb): 171 Weight (oz): 12.16 Weight (kg): 77.909 Physical Exam General appearance: alert, awake Neck: no JVD Cardiovascular: regular rate rhythm Respiratory: aerating well, clear to auscultatio n Abdomen: non-tender, normal bowel sounds, soft Extremities: Extremities: RT AKA Neuro/ELECTRICAL CONTROLS TECHNICIAN: alert, oriented x 3 Skin: dry, normal temperature, AKA stump celluli tis, w wound dehiscence- Psychiatry: depressed, normal judgement/insight Discharge Instructions PCP )( Follow up labs, proc, tx: PER RENAL )( Discharge to: Home Health wPlan of Care Discharge Instructions Additional Discharge Routines: PCP Follo w-Up, Broiler Manager Follow-Up, Equipment/ Supplies, Wound/Dressing Care, Weight Monitoring [...] SAFETY PRECAUTIONS NWB R AKA Agency referral: [facility] Prescriptions: e-prescribe Discharge management: face [...] Baldwin MD Specialty: Neurological Surgery Consult phone: [phone] Consult follow up timeframe: In 3-4 weeks Consult special instructions: NEUROSURG Electronically Signed by Danny Keith MD 07/15/20 at 1018 RPT #:[id number] END OF REPORT 2020-05-31 13:15:00-00:[address] [facility] ([facility]) Wound Care Progress Note REPORT#:[id number] REPORT STATUS: Signed DATE:05/31/20 TIME: 1315 PATIENT: DARIEN GROSSMAN UNIT #: [id number] ROOM[facility]BED: [facility] : 45 AGE: 74 SEX: M ATTEND: Rosa Curtis MD ADM AUTHOR: Shaila Gilbert * ALL edits or amendments must be made on the el [employer]/computer document * Subjective Chief Complaint: FU R [...] ordering and monitor fo od intake 3. [place] food preferences within diet and encourage oral [...] with foam dressing daily. JESS Molina. JESS DENT; FU in 2 wks. [ x] Optimize [...] [ ] Case Management at 2106 RPT #:[id number] END OF REPORT 2020-05-31 12:41:00-00:00 [facility] ([facility] Rehab Discharge Summary REPORT#:[id number] REPORT STATUS: Signed DATE:05/31/20 TIME: 1241 PATIENT: DARIEN GROSSMAN UNIT #: [id number] ROOM/BED: [place] [address] : 45 AGE: 74 SEX: M ATTEND: Rosa Curtis MD ADM AUTHOR: Sekou Curtis MD * ALL edits or amendments must be made on the el [employer]/computer document * Med Rec Med Rec Discharge [...] MMT moves all against gravity. BUE 4/5, CLOTH BOOKER GOOD, RHF 4+/5, LLE 4-/5 . L calf NT, No cords. NO TENDERNESS L lateral thigh above trochanter burs ae. Neuro/ELECTRICAL CONTROLS TECHNICIAN: alert, oriented X 3, CNII-XII intact, normal [...] daily note comment: PT VERY VERBOSE, CUES F OR REDIRECTION. DISCUSSED IMPLEMENTATION OF MEMORY AND ATTENTION STRATEGI ES INTO DAILY TASKS OF COUNSELING [facility]. D /C TODAY. Special rehabilitation precautions: Safety/fall [...] POC Treating therapist: Melodie Zimmerman Credentials: MA, WAGON [employer]IVER-CCC Interdisciplinary team collaboration this shif t: Rehab Nursing - - PT SPECIFIC EVAL [...] DME: NONE. D/C: HHPT. PRIMARY MODE OF AMBULATIO N: WC 300 FT - - PT INTERDISCIPLINARY COLLABORATION - - Interdisciplinary team collaboration this shif t: Rehab Nursing Physical Therapy Focus area of [...] Yes Interim oral hygiene CARE score: Independent ( 6) - - OT INTERIM SHOWER/BATHING - - [...] Yes Interim lower body dressing CARE score: Maddy dubose (6) - - OT INTERIM FOOTWEAR - [...] home alone. On 03/15/2020 patient presented to [facility] ED from outside rehab facility s/p fall [...] greater trochanteric bursitis-possible injection as per pain medical staff services manager-continue [place] and gabapentin -Left thigh pain, lateral femoral [...] -History of depression/anxie ty continue BuSpar, Desyrel, Effexor-probation officer bring in patient's home Pristiq -Monitor hemoglobin [...] and CoNS-ESR/CRP sig nificant elevated -CT (+) [id number] loculated fluid maria fernanda ection; S/P diagnostic [...] his progress and care h ere at [facility] rehab Patient Progress-GAIT- IN SBA AMBULATED 200FT [...] (Uncoded, Mild, ITCHING, 05/13/20) COVID-19: Discharge Plan [facility] criteria met for testing: yes Test performed: yes, result negative Pt. disposition at DC: home w/home health Treatments Procedures Treatments Procedures Lab: Recent Impressions: ULTRASOUND - USG NDL PLACEMENT (Bxg/Asp) 05/24 1 434 Report Impression - Status: SIGNED Entered: 05/24/2020 1515 IMPRESSION: 1. Technically successful ultrasound-guided aspi ration of a right knee stump collection. Impression By: [email or web address] - Paloma Arvizu D.O. Laboratory Tests 05/29 [...] % (Auto) (14.0 - 32.0 %) 18.0 [place] % (Auto) (4.8 - 9.0 %) 10.5 H Eos % (Auto) (0.3 - 3.7 %) 8.8 H Baso % (Auto) (0.0 - 2.0 %) 0.8 Neut # (Auto) (2.0 - 7.6 x10 3/uL) 5.13 Lymph # (Auto) (1.0 - 3.8 x10 3/uL) 1.51 [place]utherford # (Auto) (0.1 - 0.8 x10 3/uL) [...] Care Additional Discharge Routines: PCP Follo w-Up, Broiler Manager Follow-Up, Equipment/ Supplies, Wound/Dressing Care, Weight Monitoring [...] SAFETY PRECAUTIONS NWB R AKA Agency referral: [facility] Prescriptions: e-prescribe Rx drug database reviewed: [...] weeks Consult special instructions: NEUROSURG at 1251 RPT #:[id number] END OF REPORT 2020-05-31 09:43:00-00:[address] [facility] ([facility]) Pain Management Progress Note REPORT#:[id number] REPORT STATUS: Signed DATE:05/31/20 TIME: 942 PATIENT: DARIEN GROSSMAN UNIT #: [id number] ROOM/BED: 508-1 : 45 AGE: 74 SEX: M ATTEND: Rosa Curtis MD ADM AUTHOR: Dusty Smiley CALCINE 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 * ALL edits or amendments must be made on the [employer]/computer document * Subjective Chief complaint: Patient seen [...] all, no edema, pedal pulses, right AKA Neuro/ELECTRICAL CONTROLS TECHNICIAN: no motor deficits, no sensory deficit s, [...] helps with the pain. Patient declined -05/24-decrease [place] 10/325 to [place] 7.5/325 james ry 4 as needed -Lidoderm patch to left thigh daily -[place] 7.5/325 mg oral every 4 hours as [...] Allergies: Penicillin, iodine Disposition: Discharge date 05/31. [place] 7.5/325mg q6h PRN 7 day supply [facility]. All pertinent diagnostics/labs from the last 24 [...] Case discussed with Dr Lofton whom agrees. 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: Total Prescriptions 28 Total Private Pay 0 Total Prescribers 4 Total Pharmacies 1 05/06/2020 1 05/06/2020 HYDROCODONE-ACETAMIN 10- 325 MG 30.0 7 [facility] SPA [id number] [facility] (1602) 0 42.86 MME Comm Ins [place] 04/20/2020 1 12/24/2019 ZOLPIDEM TARTRATE 10 MG TABLET 30.0 30 PE LAT [id number] [facility] (1602) 4 [place] 03/21/2020 1 12/24/2019 ZOLPIDEM TARTRATE 10 MG TABLET 30.0 30 PE LAT [id number] [facility] (1602) 3 [place] 02/20/2020 1 12/24/2019 ZOLPIDEM TARTRATE 10 MG TABLET 30.0 30 PE LAT [id number] [facility] (1602) 2 [place] 01/21/2020 1 12/24/2019 ZOLPIDEM TARTRATE 10 MG TABLET 30.0 30 PE LAT [id number] [facility] (1602) 1 [place] 12/24/2019 1 12/24/2019 ZOLPIDEM TARTRATE 10 MG TABLET 30.0 30 PE LAT [id number] [facility] (1602) 0 [place] 11/25/2019 1 07/07/2019 ZOLPIDEM TARTRATE 10 MG TABLET 30.0 30 PE LAT [id number] [facility] (1602) 5 Comm Ins [place] [id number] ([id number]) [address] [place] [address] at 1329 RPT #:[id number] END OF REPORT 2020-05-31 09:43:00-00:00 [facility] Pain Management Progress Note REPORT#:[id number] REPORT STATUS: Signed DATE:05/31/20 TIME: 09 PATIENT: DARIEN GROSSMAN UNIT #: [id number] ROOM/BED: [place] [address] : 45 AGE: 74 SEX: M ATTEND: Rosa Curtis MD ADM AUTHOR: Dusty Smiley NP * ALL edits or amendments must be made on the [employer]/computer document * Subjective Chief complaint: Patient seen [...] Resp B/P B/P Mean Pulse Ox FiO2 04/19-05/31 97.2-99.1 53-67 16-18 133-149/60-84 87-105.2 96-98 Last Documented: Result Date Time Pulse Ox 96 05/31 0703 B/P 133/65 05/31 0703 B/P Mean 87.9 05/31 0703 O2 Delivery Room air 05/31 07 Temp 98.6 05/31 0703 Pulse 57 05/31 0703 Resp 18 05/31 07 24 hour I O ending at [...] all, no edema, pedal pulses, right AKA Neuro/ELECTRICAL CONTROLS TECHNICIAN: no motor deficits, no sensory deficit s, [...] helps with the pain. Patient declined -05/24-decrease [place] 10/325 to [place] 7.5/325 james ry 4 as needed -Lidoderm patch to left thigh daily -[place] 7.5/325 mg oral every 4 hours as [...] Allergies: Penicillin, iodine Disposition: Discharge date 05/31. [place] 7.5/325mg q6h PRN 7 day supply sent to [facility]. All pertinent diagnostics/labs from the last 24 [...] Case discussed with Dr Lofton whom agrees. 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: Total Prescriptions 28 Total Private Pay 0 Total Prescribers 4 Total Pharmacies 1 05/06/2020 1 05/06/2020 HYDROCODONE-ACETAMIN 10- 325 MG 30.0 7 [facility] [id number] [facility] (1602) 0 42.86 MME Comm Ins [place] 04/20/2020 1 12/24/2019 ZOLPIDEM TARTRATE 10 MG TABLET 30.0 30 PE LAT [id number] [facility] (1602) 4 Comm Ins [place] 03/21/2020 1 12/24/2019 ZOLPIDEM TARTRATE 10 MG TABLET 30.0 30 PE LAT [id number] [facility] (1602) 3 [place] Ins [place] 02/20/2020 1 12/24/2019 ZOLPIDEM TARTRATE 10 MG TABLET 30.0 30 PE LAT [id number] [facility] (1602) 2 [place] Ins [place] 01/21/2020 1 12/24/2019 ZOLPIDEM TARTRATE 10 MG TABLET 30.0 30 PE LAT [id number] [facility] (1602) 1 [place] 12/24/2019 1 12/24/2019 ZOLPIDEM TARTRATE 10 MG TABLET 30.0 30 PE LAT [id number] [facility] (1602) 0 [place] Ins [place] 11/25/2019 1 07/07/2019 ZOLPIDEM TARTRATE 10 MG TABLET 30.0 30 PE LAT [id number] [facility] (1602) 5 Comm Ins [id number] ([id number]) [address] [place] [address] at 1329 Electronically Signed by Herman Lofton MD on 0 05/31/20 at 2320 RPT #:[id number] END OF REPORT 2020-05-31 09:18:00-00:00 [facility] ([facility]) Infectious Dis. Progress Note REPORT#:[id number] REPORT STATUS: Signed DATE:05/31/20 TIME: 917 PATIENT: DARIEN GROSSMAN UNIT #: [id number] ROOM/BED: [place] [address] : 45 AGE: 74 SEX: M ATTEND: Rosa Curtis MD ADM AUTHOR: Jonathan Sheikh NP * ALL edits or amendments must be made on the [employer]/computer document * Subjective Chief Complaint: F/U Right AKA cellulitis HPI: Patient is a 74-year-old male with past medical history of end-stage renal disease on HD, hypertension, hyperlipide liseth who underwent right safww-vmh-awkv amputation in March 2020. He was admitted to [facility] after sustaining a fall resulting in a [...] no distress Abdomen: non-tender, normal bowel sounds Neuro/ELECTRICAL CONTROLS TECHNICIAN: alert, oriented X 3 Skin: no rash Results Results: no new labs, vital signs stable, curren t med profile rev'd Diagnosis, Assessment Plan Free Text A P: 1. Right AKA stump cellulitis --R/O fluid collection, check CT extremity --Superficial cx: Pseudomonas (R-Merrem), and Co NS --ESR/CRP significant elevated --CT (+) [id number] loculated f luid collection; S/P diagnostic aspiration [...] Jonathan Sheikh NP on at 1524 RPT #:[id number] END OF REPORT 2020-05-31 09:18:00-00:00 [facility] ([facility]) Infectious Dis. Progress Note REPORT#:[id number] REPORT STATUS: Signed DATE:05/31/20 TIME: 917 PATIENT: DARIEN GROSSMAN UNIT #: [id number] ROOM/BED: [place] [address] : 45 AGE: 74 SEX: M ATTEND: Rosa Curtis MD ADM AUTHOR: Jonathan Sheikh NP * ALL edits or amendments must be made on the el [employer]/computer document * Subjective Chief Complaint: F/U Right AKA cellulitis HPI: Patient is a 74-year-old male with past medical history of end-stage renal disease on HD, hypertension, hyperlipide liseth who underwent right uvsln-udy-htyq amputation in March 2020. He was admitted to [facility] after sustaining a fall resulting in a [...] no distress Abdomen: non-tender, normal bowel sounds Neuro/ELECTRICAL CONTROLS TECHNICIAN: alert, oriented X 3 Skin: no rash Results Results: no new labs, vital signs stable, curren t med profile rev'd Diagnosis, Assessment Plan Free Text A P: 1. Right AKA stump cellulitis --R/O fluid collection, check CT extremity --Superficial cx: Pseudomonas (R-Merrem), and Co NS --ESR/CRP significant elevated --CT (+) [id number] loculated f luid collection; S/P diagnostic aspiration [...] Jonathan Sheikh NP on at 1524 at 0912 RPT #:[id number] END OF REPORT 2020-05-30 13:50:00-00:[address] [facility] ([facility]) Nephrology Progress Note REPORT#:[id number] REPORT STATUS: Signed DATE:05/30/20 TIME: 1350 PATIENT: DARIEN GROSSMAN UNIT #: [id number] ROOM/BED: [place] [address] : 45 AGE: 74 SEX: M ATTEND: Rosa Curtis MD ADM AUTHOR: Merissa Dillon MD * ALL edits or amendments must be made on the [employer]/computer document * Subjective Chief Complaint: Patient seen [...] if he's a candidate. at 1358 RPT #:[id number] END OF REPORT 2020-05-30 13:39:00-00:[address] [facility] ([facility] Internal Medicine Prog. Note REPORT#:[id number] REPORT STATUS: Signed DATE:05/30/20 TIME: 1339 PATIENT: DARIEN GROSSMAN UNIT #: [id number] ROOM/BED: [place] [address] : 45 AGE: 74 SEX: M ATTEND: Rosa Curtis MD ADM AUTHOR: Javier Meek NP * ALL edits or amendments must be made on the [employer]/computer document * Subjective Chief Complaint: Right AKA [...] 18 05/30 0405 O2 Delivery Room air 05/292 24 hour I O ending at 0700: [...] bowel sounds, soft Extremities: Extremities: RT AKA Neuro/ELECTRICAL CONTROLS TECHNICIAN: alert, oriented x 3 Skin: dry, normal temperature, AKA stump celluli tis, w wound dehiscence- Psychiatry: depressed, normal judgement/insight Results Findings/Data: Laboratory Tests 05/30/205: [Embedded Image Not Available] Laboratory Tests 05/30 2305 Chemistry Sodium (134 - 147 mEq/L) [...] CT of the right femur without contrast: Cgsdl-sgs-mngz amputation changes with complex soft tissue fluid [...] of care: -Continue with [facility] team -Wound care as per Dr. Gilbert -Dialysis per nephrology team -Pain control -Fall precaution -DVT prophylaxis -GI prophylaxis -Pain control as pain management -Seizure precaution patient on Keppra -Continues present medications -Monitor labs -Consider discharge in a.m. -Plan of care discussed with the patient, galina palma's nurse, and Dr. Cavazos. Electronically Signed by Javier Meek CALCINE 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 on 0 07/12/20 at 1851 RPT #:[id number] END OF REPORT 2020-05-30 13:39:00-00:00 [facility] Internal Medicine Prog. Note REPORT#:[id number] REPORT STATUS: Signed DATE:05/30/20 TIME: 1338 PATIENT: DARIEN GROSSMAN UNIT #: [id number] ROOM/BED: [place] [address] : 45 AGE: 74 SEX: M ATTEND: Rosa Curtis MD ADM AUTHOR: Javier Meek CALCINE 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 * ALL edits or amendments must be made on the [employer]/computer document * Javier Meek 05/30/20 1339: Subjective [...] B/P B/P Mean Pulse Ox FiO 2 05/29-05/30 36.5-37.1 61-69 12-20 138-155/60-68 86.1-97.4 95-97 [...] bowel sounds, soft Extremities: Extremities: RT AKA Neuro/ELECTRICAL CONTROLS TECHNICIAN: alert, oriented x 3 Skin: dry, normal [...] CT of the right femur without contrast: Ejpcf-jid-tdbp amputation changes with complex soft tissue fluid [...] of care: -Continue with comprehensive inpatient [facility]habil[facility] re[facility] team -Wound care as per Dr. Gilbert -Dialysis per nephrology team -Pain control -Fall precaution -DVT prophylaxis -GI prophylaxis -Pain control as pain management -Seizure precaution patient on Keppra -Continues present medications -Monitor labs -Consider discharge in a.m. -Plan of care discussed with the patient, galina marcano nurse, and Dr. Cavazos. Danny Cavazos 07/14/20 1939: Attestations Physician Attestation Agree w/findings plan: Patient seen and evaluated on 05/30/2020. I Agree with the findings and plan as documented by JOSE Meek. Plan of care coordinat ed with JOSE Meek. Pertinent labs, Imaging, and skin care consultant evaluations review ed. Electronically Signed by Javier Meek CALCINE 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 on 0 07/12/20 at 1851 RPT #:[id number] END OF REPORT 2020-05-30 13:39:00-00:00 [facility] Internal Medicine Prog. Note REPORT#:[id number] REPORT STATUS: Signed DATE:05/30/20 TIME: 1338 PATIENT: DARIEN GROSSMAN UNIT #: [id number] ROOM/BED: [place] [address] : 45 AGE: 74 SEX: M ATTEND: Rosa Curtis MD ADM AUTHOR: Javier Meek CALCINE 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 * ALL edits or amendments must be made on the [employer]/computer document * Javier Meek 05/30/20 1339: Subjective [...] bowel sounds, soft Extremities: Extremities: RT AKA Neuro/ELECTRICAL CONTROLS TECHNICIAN: alert, oriented x 3 Skin: dry, normal [...] CT of the right femur without contrast: Eqggp-hzx-ogfv amputation changes with complex soft tissue fluid [...] of care: -Continue with comprehensive inpatient rehabil[facility] rehab team -Wound care as per Dr. Gilbert -Dialysis per nephrology team -Pain control -Fall precaution -DVT prophylaxis -GI prophylaxis -Pain control as pain management -Seizure precaution patient on Keppra -Continues present medications -Monitor labs -Consider discharge in a.m. -Plan of care discussed with the patient, galina marcano nurse, and Dr. Cavazos. Danny Cavazos 06/03/21 1939: Attestations Physician Attestation Agree w/findings plan: Patient seen and evaluated on 05/30/2020. I Agree with the findings and plan as documented by JOSE Meek. Plan of care coordinat ed with JOSE Meek. Pertinent labs, Imaging, and skin care consultant evaluations review ed. Electronically Signed by Javier Meek NP on 0 07/12/20 at 1851 Electronically Signed by Danny Keith MD 07/14/20 at 2325 RPT #:[id number] END OF REPORT 2020-05-30 10:00:00-00:00 [facility] ([facility]) Wound Care Progress Note REPORT#:[id number] REPORT STATUS: Signed DATE:05/30/20 TIME: 1000 PATIENT: DARIEN GROSSMAN UNIT #: [id number] ROOM/BED: [place] [address] : 45 AGE: 74 SEX: M ATTEND: Rosa Curtis MD ADM AUTHOR: Shaila Gilbert * ALL edits or amendments must be made on the [employer]/computer document * Subjective Chief Complaint: FU R [...] ordering and monitor fo od intake 3. [place] food preferences within diet and encourage oral intake >75% 4. ADD LIQUACEL DAILY Dietitian name: Breann Olivera DIETITIANUJ Assessment completed: 05/26/20 Provider comments on imported [...] [ ] Case Management at 2110 RPT #:[id number] END OF REPORT 2020-05-30 09:01:00-00:00 [facility] ([facility]) Pain Management Progress Note REPORT#:[id number] REPORT STATUS: Signed DATE:05/30/20 TIME: 900 PATIENT: DARIEN GROSSMAN UNIT #: [id number] ROOM/BED: [place] [address] : 45 AGE: 74 SEX: M ATTEND: Rosa Curtis MD ADM AUTHOR: Dusty Smiley CALCINE 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 * ALL edits or amendments must be [...] 05/30 0405 O2 Delivery Room air 05/29 190 24 hour I O ending [...] all, no edema, pedal pulses, right AKA Neuro/ELECTRICAL CONTROLS TECHNICIAN: no motor deficits, no sensory deficit s, [...] helps with the pain. Patient declined -05/24-decrease [place] 10/325 to [place] 7.5/325 james ry 4 as needed -Lidoderm patch to left thigh daily -[place] 7.5/325 mg oral every 4 hours as [...] Allergies: Penicillin, iodine Disposition: Discharge date 05/31. [place] 7.5/325mg q6h PRN 7 day supply sent to [facility] in [facility]. All pertinent diagnostics/labs from the last 24 [...] Case discussed with Dr Lofton whom agrees. 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: Total Prescriptions 28 Total Private Pay 0 Total Prescribers 4 Total Pharmacies 1 05/06/2020 1 05/06/2020 HYDROCODONE-ACETAMIN 10- 325 MG 30.0 7 [facility] SPA [id number] [facility] (1602) 0 42.86 MME Comm Ins [place] 04/20/2020 1 12/24/2019 ZOLPIDEM TARTRATE 10 MG TABLET 30.0 30 PE LAT [id number] [facility] (1602) 4 Comm Ins [place] 03/21/2020 1 12/24/2019 ZOLPIDEM TARTRATE 10 MG TABLET 30.0 30 PE LAT [id number] [facility] (1602) 3 Comm Ins [place] 02/20/2020 1 12/24/2019 ZOLPIDEM TARTRATE 10 MG TABLET 30.0 30 PE LAT [id number] [facility] (1602) 2 Comm Ins [place] 01/21/2020 1 12/24/2019 ZOLPIDEM TARTRATE 10 MG TABLET 30.0 30 PE LAT [id number] [facility] (1602) 1 Comm Ins [place] 12/24/2019 1 12/24/2019 ZOLPIDEM TARTRATE 10 MG TABLET 30.0 30 PE LAT [id number] [facility] (1602) 0 Comm Ins [place] 11/25/2019 1 07/07/2019 ZOLPIDEM TARTRATE 10 MG TABLET 30.0 30 PE LAT [id number] [facility] (1602) 5 Comm Ins [facility]232 ([id number]) [address] [place] [address] at 1229 RPT #:[id number] END OF REPORT 2020-05-30 09:01:00-00:00 [facility] ([facility]) Pain Management Progress Note REPORT#:[id number] REPORT STATUS: Signed DATE:05/30/20 TIME: 900 PATIENT: DARIEN GROSSMAN UNIT #: [id number] ROOM/BED: [place] [address] : 45 AGE: 74 SEX: M ATTEND: [...] 05/30 0405 O2 Delivery Room air 05/29 190 24 hour I O ending [...] all, no edema, pedal pulses, right AKA Neuro/ELECTRICAL CONTROLS TECHNICIAN: no motor deficits, no sensory deficit s, [...] helps with the pain. Patient declined -05/24-decrease [place] 10/325 to [place] 7.5/325 james ry 4 as needed -Lidoderm patch to left thigh daily -[place] 7.5/325 mg oral every 4 hours as [...] Allergies: Penicillin, iodine Disposition: Discharge date 05/31. [place] 7.5/325mg q6h PRN 7 day supply sent to [facility] in [facility]. All pertinent diagnostics/labs from the last 24 [...] Case discussed with Dr Lofton whom agrees. 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: Total Prescriptions 28 Total Private Pay 0 Total Prescribers 4 Total Pharmacies 1 05/06/2020 1 05/06/2020 HYDROCODONE-ACETAMIN 10- 325 MG 30.0 7 CH SPA [id number] [facility] (1602) 0 42.86 MME Comm Ins [place] 04/20/2020 1 12/24/2019 ZOLPIDEM TARTRATE 10 MG TABLET 30.0 30 PE LAT [id number] [facility] (1602) 4 Comm Ins [place] 03/21/2020 1 12/24/2019 ZOLPIDEM TARTRATE 10 MG TABLET 30.0 30 PE LAT [id number] [facility] (1602) 3 Comm Ins [place] 02/20/2020 1 12/24/2019 ZOLPIDEM TARTRATE 10 MG TABLET 30.0 30 PE LAT [id number] [facility] (1602) 2 Comm Ins [place] 01/21/2020 1 12/24/2019 ZOLPIDEM TARTRATE 10 MG TABLET 30.0 30 PE LAT [id number] [facility] (1602) 1 Comm Ins [place] 12/24/2019 1 12/24/2019 ZOLPIDEM TARTRATE 10 MG TABLET 30.0 30 PE LAT [id number] [facility] (1602) 0 Comm Ins [place] 11/25/2019 1 07/07/2019 ZOLPIDEM TARTRATE 10 MG TABLET 30.0 30 PE LAT [id number] [facility] (1602) 5 Comm Ins [place] [facility]149 ([id number]) [address] [place] [id number] at 1222 Electronically Signed by Herman Lofton MD on 0 05/31/20 at 0683 RPT #:[id number] END OF REPORT 2020-05-30 07:10:00-00:00 [facility] Clinical Note REPORT#:[id number] REPORT STATUS: Signed DATE:05/30/20 TIME: 0710 PATIENT: DARINE GROSSMAN UNIT #: [id number] ROOM/BED: [place] [address] : 45 AGE: 74 SEX: M ATTEND: Rosa Curtis MD ADM AUTHOR: Danny Keith MD * ALL edits or amendments must be made on the el [employer]/computer document * Clinical Note Note: 74-year-old male [...] by Danny Keith MD n 06/01/20 at 1247 RPT #:[id number] END OF REPORT 2020-05-30 06:45:00-00:00 [facility] Re[facility] Progress Note REPORT#:[id number] REPORT STATUS: Signed DATE:05/30/20 TIME: 644 PATIENT: DARIEN GROSSMAN UNIT #: [id number] ROOM/BED: [facility] : 45 AGE: 74 SEX: M ATTEND: Rosa Curtis MD ADM AUTHOR: Sekou Curtis MD * ALL edits or amendments must be made on the el ectronic/computer document * Subjective Chief complaint: Rehab follow-up Generalized weakness Patient doing well Ready for discharge in the morning Requesting to receive antibiotics at hemodialysi s today-discussed with nurse Affect is improved Slept well BM+ Denies GUTIÉRREZ/N/V/D 14 systems reviewed and neg. except that [...] SIT<>STAND, INDEPENDENT EOB SIT ON MAT,SBA TO M IN A IN 4"STEP UPS TO PLATFORM HOPING [...] T FOR INREASED STRENGTH, ENDURANCE, INDEPENDENCE W A DL TASKS, FUNCTIONAL XFERS, AND SAFETY AWARENESS. PATIENT TOLERATED ALL TASKS WELL W REST BREAKS. PATIENT EDUCATED ON FALLS, SAFETY AWARENESS, AND COMPENSATORY TECHNIQUES F OR ADL TASKS. CONTINUE OT POC SUPERVISED BY VALE MEDRAN O, OTR. Physical Exam General appearance: alert, awake, oriented [...] MMT moves all against gravity. BUE 4/5, CLOTH BOOKER GOOD, RHF 3+/5, LLE 4/5. L calf NT, No cords. TTP L lateral thigh above trochanter bursae. Neuro/ELECTRICAL CONTROLS TECHNICIAN: alert, oriented X 3, CNII-XII intact, normal [...] greater trochanteric bursitis-possible injection as per pain medical staff services manager-continue [place] and gabapentin -Left thigh pain, lateral femoral [...] -History of depression/anxie ty continue Carlyn Dixon Effexor-probation officer bring in patient's home Pristiq -Monitor hemoglobin on Epogen -Hemodialysis as per nephrology-Saturday -Blood pressure currently stable on current medi cation -Renal diet -Left hip pain-x-ray of the left hip and pelvis showed no acute osseous fracture. The hip joint spaces are preserved-mon itor -Elevated WBC-possible infec amado right NASEEM-culture [...] and CoNS-ESR/CRP sig nificant elevated -CT (+) [id number] loculated fluid maria fernanda ection; S/P diagnostic [...] and examined by me personally. at 1546 RPT #:[id number] END OF REPORT 2020-05-29 23:28:00-00:[address] [facility] ([facility]) Internal Medicine Prog. Note REPORT#:[id number] REPORT STATUS: Signed DATE:05/29/20 TIME: 2327 PATIENT: DARIEN GROSSMAN UNIT #: [id number] ROOM/BED: [address]: [birth year] AGE: 74 SEX: M ATTEND: Rosa Curtis MD ADM AUTHOR: Javier Meek NP * ALL edits or amendments must be made on the el [employer]/computer document * Subjective Chief Complaint: Right AKA [...] 899 AC 05/29 (ASPIRIN) PO 06/19 1300 09 Venlafaxine HCl 75 MG DAILY 05/20 899 AC 05/29 (Effexor XR 37.5 mg) PO 06/19 1300 09 Acetaminophen 650 MG Q6H PRN PRN 05/20 0845 AC (TYLENOL) PO 06/20 0744 Gabapentin 300 MG BEDTIME 05/19 2099 AC 05/29 (NEURONTIN) PO 06/19 1300 211 Trazodone HCl 150 MG BEDTIME 05/19 2099 AC 05/12 8 (DESYREL) PO 06/19 1300 2112 Zolpidem Tartrate 5 MG BEDTIME PRN PRN 05/19 20 00 AC 05/29 (AMBIEN) PO 06/19 1300 2122 Electrolytic, Caloric, And Nadia Sig/Tatum Start time Last Medication Dose Route Stop Time Status Admin Mannitol 12.5 GM ASDIR PRN 05/23 1415 AC (MANNITOL 25% 12.5GM/ IV 06/23 1413 50ML) Sodium Chloride 2,000 ML ASDIR PRN 05/23 1415 A C 05/27 (SODIUM CHLORIDE IV 06/23 141 1552 0.9%) Sodium Chloride 10 ML ASDIR PRN 05/23 141 AC 05/27 (SODIUM CHLORIDE) IV 06/22 141 1553 Sodium Chloride 250 ML ASDIR PRN [...] DAILY 05/21 899 AC 05/29 (LIDODERM) TOPICAL 06/21 0759 0928 Skin And Mucous Membrane Agent Sig/Tatum Start time Last Medication Dose Route Stop Time Status Admin Collagenase 1 APPLIC DAILY 05/22 899 AC 05/29 (SANTYL 2GM TOPICAL) TOPICAL 06/21 858 0928 Vital Signs: Date Time Temp Pulse Resp B/P B/P Pulse O2 O2 F low FiO2 Mean Ox Delivery Rate 05/29 1901 37.1 69 20 143/67 92.5 97 Room [...] bowel sounds, soft Extremities: Extremities: RT AKA Neuro/ELECTRICAL CONTROLS TECHNICIAN: alert, oriented x 3 Skin: dry, normal [...] CT of the right femur without contrast: Tszgh-qdk-viuq amputation changes with complex soft tissue fluid [...] of care: -Continue with comprehensive inpatient rehabil[facility] rehab team -Wound care as per Dr. Gilbert -Dialysis per nephrology team -Pain control -Fall precaution -DVT prophylaxis -GI prophylaxis -Pain control as pain management -Seizure precaution patient on Keppra -Continues present medications -Monitor labs -Plan of care discussed with the patient, galina palma's nurse, and Dr. Cavazos. at 1232 RPT #:[id number] END OF REPORT 2020-05-29 23:28:00-00:00 [facility] Internal Medicine Prog. Note REPORT#:[id number] REPORT STATUS: Signed DATE:05/29/20 TIME: 2327 PATIENT: DARIEN GROSSMAN UNIT #: [id number] ROOM/BED: [place] [address] : 45 AGE: 74 SEX: M ATTEND: Rosa Curtis MD ADM AUTHOR: Javier Meek CALCINE 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 * ALL edits or amendments must be made on the el [employer]/computer document * Javier Meek 05/29/202327: Subjective Chief [...] PRN 05/20 0845 AC (APRESOLINE) PO 06/19 08 Metoprolol Tartrate 25 MG BID 05/19 2099 [...] 899 AC 05/29 (ASPIRIN) PO 06/19 1300 09 Venlafaxine HCl 75 MG DAILY 05/20 899 AC 05/29 (Effexor XR 37.5 mg) PO 06/19 1300 0927 Acetaminophen 650 MG Q6H PRN PRN 05/20 0845 AC (TYLENOL) PO 06/20 0744 Gabapentin 300 MG BEDTIME 05/19 2099 AC [...] 143/67 05/29 1901 B/P Mean 92.5 05/29 190 O2 Delivery Room air 05/29 1901 Temp 37.1 05/29 190 Pulse 69 05/29 1902 Resp 20 05/29 1902 24 hour I O ending [...] bowel sounds, soft Extremities: Extremities: RT AKA Neuro/ELECTRICAL CONTROLS TECHNICIAN: alert, oriented x 3 Skin: dry, normal [...] CT of the right femur without contrast: Jmlmj-dib-gdao amputation changes with complex soft tissue fluid [...] some descent of the wound, seen by gabiun d care Continue antibiotics May 27, 2020 [...] of care: -Continue with comprehensive inpatient rehabilit [facility] rehab team -Wound care as per Dr. Gilbert -Dialysis per nephrology team -Pain control -Fall precaution -DVT prophylaxis -GI prophylaxis -Pain control as pain management -Seizure precaution patient on Keppra -Continues present medications -Monitor labs -Plan of care discussed with the patient, galina marcano nurse, and Dr. Cavazos. Danny Cavazos 06/02/20 2253: Attestations Physician Attestation Agree w/findings plan: Patient seen and examined on 05/29/2020. I agree with the findings and plan as documented by JOSE Meek. Plan of care coordinat ed with JOSE Meek. Pertinent labs, Imaging, and skin care consultant evaluations review ed. 74-year-old male was [...] NP on 0 05/30/20 at 1232 RPT #:[id number] END OF REPORT 2020-05-29 23:28:00-00:00 [facility] ([facility]) Internal Medicine Prog. Note REPORT#:[id number] REPORT STATUS: Signed DATE:05/29/20 TIME: 2327 PATIENT: DARIEN GROSSMAN UNIT #: [id number] ROOM/BED: [place] [address] : 45 AGE: 74 SEX: M ATTEND: Rosa Curtis MD ADM AUTHOR: Javier Meek CALCINE 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 * ALL edits or amendments must be made on the [employer]/computer document * Javier Meek 05/29/20 2328: Subjective [...] Sod/ 3.375 GM Q12H 05/23 1300 AC 05/29 Tazobactam Sod IV 05/30 1259 1259 [...] 0954 Heparin Sodium 5,000 UNIT Q8H 05/19 220 AC (HEPARIN 5000 UNITS/ SUBQ 06/19 1300 [...] 05/19 2099 AC (DESYREL) PO 06/19 1300 211 Zolpidem Tartrate [...] bowel sounds, soft Extremities: Extremities: RT AKA Neuro/ELECTRICAL CONTROLS TECHNICIAN: alert, oriented x 3 Skin: dry, normal [...] CT of the right femur without contrast: Mtmnq-goe-cfut amputation changes with complex soft tissue fluid [...] of care: -Continue with comprehensive inpatient rehabil[facility] rehab team -Wound care as per Dr. Gilbert -Dialysis per nephrology team -Pain control -Fall precaution -DVT prophylaxis -GI prophylaxis -Pain control as pain management -Seizure precaution patient on Keppra -Continues present medications -Monitor labs -Plan of care discussed with the patient, galina marcano nurse, and Dr. Cavazos. Danny Cavazos 06/02/20 4862: Attestations Physician Attestation Agree w/findings plan: Patient seen and examined on 05/29/2020. I agree with the findings and plan as documented by JOSE Meek. Plan of care coordinat ed with JOSE Meek. Pertinent labs, Imaging, and skin care consultant evaluations review ed. 74-year-old male was [...] his labs. Electronically Signed by Javier Meek CALCINE 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 on 0 05/30/20 at 1232 Electronically Signed by Danny Keith MD o n 06/02/20 at 2326 RPT #:[id number] END OF REPORT 2020-05-29 13:20:00-00:00 [facility] ([facility] Nephrology Progress Note REPORT#:[id number] REPORT STATUS: Signed DATE:05/29/20 TIME: 1320 PATIENT: DARIEN GROSSMAN UNIT #: [id number] ROOM/BED: [place] [address] : 45 AGE: 74 SEX: M ATTEND: Rosa Curtis MD ADM AUTHOR: Jenny Banegas * ALL edits or amendments must be made on the [employer]/computer document * Subjective Chief Complaint: Patient seen [...] with Dr Sriram min. at 1322 RPT #:[id number] END OF REPORT 2020-05-29 13:[facility] RE[facility]#:[id number] REPORT STATUS: Signed DATE:05/29/20 TIME: 1320 PATIENT: DARIEN GROSSMAN UNIT #: [id number] ROOM/BED: [place] [address] : 45 AGE: 74 SEX: M ATTEND: Rosa Curtis MD ADM AUTHOR: Jenny Banegas * ALL edits or amendments must be made on the [employer]/computer document * Jenny Banegas 05/29/20 1320: Subjective [...] opinion on this issue. at 1322 RPT #:[id number] END OF REPORT 2020-05-29 13:20:00-00:00 [facility] ([facility] Nephrology Progress Note REPORT#:[id number] REPORT STATUS: Signed DATE:05/29/20 TIME: 1320 PATIENT: DARIEN GROSSMAN UNIT #: [id number] ROOM/BED: [place] [address] : 45 AGE: 74 SEX: M ATTEND: Rosa Curtis MD ADM AUTHOR: Jenny Banegas * ALL edits or amendments must be made on the [employer]/computer document * Jenny Banegas 05/29/20 1320: Subjective [...] this issue. at 1322 at 1550 RPT #:[id number] END OF REPORT 2020-05-29 12:17:00-00:[address] [facility] ([facility]) Clinical Note REPORT#:[id number] REPORT STATUS: Signed DATE:05/29/20 TIME: 1216 PATIENT: DARIEN GROSSMAN UNIT #: [id number] ROOM/BED: [place] [address] : 45 AGE: 74 SEX: M ATTEND: Rosa Curtis MD ADM AUTHOR: Jonathan Sheikh NP * ALL edits or amendments must be made on the el [employer]/computer document * Clinical Note Note: attmepted to see pt gone from room cont zosyn x 1 week total as planned Electronically Signed by Jonathan Sheikh NP on at 1217 RPT #:[id number] END OF REPORT 2020-05-29 12:17:00-00:[address] [facility] ([facility]) Clinical Note REPORT#:[id number] REPORT STATUS: Signed DATE:05/29/20 TIME: 1217 PATIENT: DARIEN GROSSMAN UNIT #: [id number] ROOM/BED: [place] [address] : 45 AGE: 74 SEX: M ATTEND: Rosa Curtis MD ADM AUTHOR: Jonathan Sheikh NP * ALL edits or amendments must be made on the [employer] document * Clinical Note Note: attmepted to see pt gone from room cont zosyn x 1 week total as planned Electronically Signed by Jonathan Sheikh NP on at 1217 at 2047 RPT #:[id number] END OF REPORT 2020-05-29 11:09:00-00:00 [facility] ([facility]) Pain Management Progress Note REPORT#:[id number] REPORT STATUS: Signed DATE:05/29/20 TIME: 1109 PATIENT: DARIEN GROSSMAN UNIT #: [id number] ROOM/BED: [place] [address] : 45 AGE: 74 SEX: M ATTEND: Rosa Curtis MD ADM AUTHOR: Sohail Wells * ALL edits or amendments must be made on the [employer] document * Subjective Chief complaint: Patient seen [...] 117/63 05/29 0946 B/P Mean 80.6 05/29 0946 Temp 36.8 05/29 0946 Pulse 69 05/29 0946 Resp 16 05/29 0946 O2 Delivery Room air 04/13 1938 24 hour I O ending at [...] all, no edema, pedal pulses, right AKA Neuro/ELECTRICAL CONTROLS TECHNICIAN: no motor deficits, no sensory deficit s, [...] helps with the pain. Patient declined -05/24-decrease [place] 10/325 to [place] 7.5/325 james ry 4 as needed -Lidoderm patch to left thigh daily -[place] 7.5/325 mg oral every 4 hours as [...] Case discussed with Dr Lofton whom agrees. 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: Total Prescriptions 28 Total Private Pay 0 Total Prescribers 4 Total Pharmacies 1 05/06/2020 1 05/06/2020 HYDROCODONE-ACETAMIN 10- 325 MG 30.0 7 [facility] SPA [id number] [facility] (1602) 0 42.86 MME Comm Ins [place] 04/20/2020 1 12/24/2019 ZOLPIDEM TARTRATE 10 MG TABLET 30.0 30 PE LAT [id number] [facility] (1602) 4 Comm Ins [place] 03/21/2020 1 12/24/2019 ZOLPIDEM TARTRATE 10 MG TABLET 30.0 30 PE LAT [id number] [facility] (1602) 3 Comm Ins [place] 02/20/2020 1 12/24/2019 ZOLPIDEM TARTRATE 10 MG TABLET 30.0 30 PE LAT [id number] [facility] (1602) 2 Comm Ins [place] 01/21/2020 1 12/24/2019 ZOLPIDEM TARTRATE 10 MG TABLET 30.0 30 PE LAT [id number] [facility] (1602) 1 Comm Ins [place] 12/24/2019 1 12/24/2019 ZOLPIDEM TARTRATE 10 MG TABLET 30.0 30 PE LAT [id number] [facility] (1602) 0 Comm Ins [place] 11/25/2019 1 07/07/2019 ZOLPIDEM TARTRATE 10 MG TABLET 30.0 30 PE LAT [id number] [facility] (1061) 5 Comm Ins [place] [facility]008 ([id number]) [address] [place] [address] at 1627 RPT #:[id number] END OF REPORT 2020-05-29 11:09:00-00:00 [facility] ([facility]) Pain Management Progress Note REPORT#:[id number] REPORT STATUS: Signed DATE:05/29/20 TIME: 1109 PATIENT: DARIEN GROSSMAN UNIT #: [id number] ROOM/BED: [place] [address] : 45 AGE: 74 SEX: M ATTEND: Rosa Curtis MD ADM AUTHOR: Sohail Wells * ALL edits or amendments must be made on the [employer]/computer document * Subjective Chief complaint: Patient seen and examined. Chart and MAR reviewe dMarva Patient doing well today. No new complaints [...] B/P B/P Mean Pulse Ox FiO 2 05/28-05/29 36.4-37.3 59-69 -18 117-153/63-71 80.6-98.4 96-98 Last Documented: Result Date Time Pulse Ox 96 05/29 0946 B/P 117/63 05/29 0846 B/P Mean 80.6 05/29 0946 Temp 36.8 05/29 0946 Pulse 69 05/29 0946 Resp 16 05/29 0946 O2 Delivery Room air 05/24 1937 24 [...] all, no edema, pedal pulses, right AKA Neuro/ELECTRICAL CONTROLS TECHNICIAN: no motor deficits, no sensory deficit s, [...] helps with the pain. Patient declined -05/24-decrease [place] 10/325 to [place] 7.5/325 james ry 4 as needed -Lidoderm patch to left thigh daily -[place] 7.5/325 mg oral every 4 hours as [...] Case discussed with Dr Lofton whom agrees. 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: Total Prescriptions 28 Total Private Pay 0 Total Prescribers 4 Total Pharmacies 1 05/06/2020 1 05/06/2020 HYDROCODONE-ACETAMIN 10- 325 MG 30.0 7 CH SPA [id number] [facility] (1602) 0 42.86 MME Comm Ins [place] 04/20/2020 1 12/24/2019 ZOLPIDEM TARTRATE 10 MG TABLET 30.0 30 PE LAT [id number] [facility] (1602) 4 Comm Ins [place] 03/21/2020 1 12/24/2019 ZOLPIDEM TARTRATE 10 MG TABLET 30.0 30 PE LAT [id number] [facility] (1602) 3 Comm Ins [place] 02/20/2020 1 12/24/2019 ZOLPIDEM TARTRATE 10 MG TABLET 30.0 30 PE LAT [id number] [facility] (1602) 2 Comm Ins [place] 01/21/2020 1 12/24/2019 ZOLPIDEM TARTRATE 10 MG TABLET 30.0 30 PE LAT [id number] [facility] (1602) 1 Comm Ins [place] 12/24/2019 1 12/24/2019 ZOLPIDEM TARTRATE 10 MG TABLET 30.0 30 PE LAT [id number] [facility] (1602) 0 Comm Ins [place] 11/25/2019 1 07/07/2019 ZOLPIDEM TARTRATE 10 MG TABLET 30.0 30 PE LAT [id number] [facility] (1602) 5 Comm Ins [place] [facility]149 ([id number]) [address] [place] [address] at 1627 Electronically Signed by Herman Lofton MD on 0 05/29/20 at 1839 [facility] #:[id number] END OF REPORT 2020-05-29 02:16:00-00:00 [facility] ([facility]) Clinical Note REPORT#:[id number] REPORT STATUS: Signed DATE:05/29/20 TIME: 215 PATIENT: DARIEN GROSSMAN UNIT #: [id number] ROOM/BED: [place] [address] : 45 AGE: 74 SEX: M ATTEND: Rosa Curtis MD ADM AUTHOR: Danny Keith MD * ALL edits or amendments must be made on the [employer]/computer document * Clinical Note Note: 74-year-old male [...] Danny Keith MD 06/01/20 at 1244 RPT #:[id number] END OF REPORT 2020-05-28 22:47:00-00:00 [facility]) Internal Medicine Prog. Note REPORT#:[id number] REPORT STATUS: Signed DATE:05/28/20 TIME: 2246 PATIENT: DARIEN GROSSMAN UNIT #: [id number] ROOM/BED: [place] [address] : 45 AGE: 74 SEX: M ATTEND: Rosa Curtis MD ADM AUTHOR: Javier Meek NP * ALL edits or amendments must be made on the [employer]/computer document * Subjective Chief Complaint: Right AKA [...] 100 ML Collagenase 1 APPLIC DAILY 05/22 0900 AC 05/28 TOPICAL 06/21 0859 0913 Lidocaine 1 PATCH DAILY 05/21 899 AC 05/28 TOPICAL 06/20 0859 0918 Amitriptyline HCl 10 MG BEDTIME 05/20 2099 AC 0 05/28 PO 06/19 Triamcinolone 40 MG PROCEDURE 05/20 [...] Q8H 05/19 2199 AC SUBQ 06/19 1300 2121 Epoetin Donny-epbx [...] B/P B/P Mean Pulse Ox FiO 2 05/28 36.4-37.3 59-64 17- 106-153/49-71 68.0- 98.4 96-98 Last Documented: Result Date Time Pulse Ox 97 05/28 2229 B/P 144/64 05/28 2229 B/P Mean 90.3 05/28 2229 Temp 36.4 05/28 2229 Pulse 59 05/28 2229 Resp 18 05/28 2229 O2 Delivery Room [...] bowel sounds, soft Extremities: Extremities: RT AKA Neuro/ELECTRICAL CONTROLS TECHNICIAN: alert, oriented x 3 Skin: dry, normal [...] CT of the right femur without contrast: Xttrl-phz-vrmz amputation changes with complex soft tissue fluid [...] descent of the wound, seen by arcenio torres care Continue antibiotics Zosyn for right stump [...] of care: -Continue with comprehensive inpatient [facility]habil[facility] team -Wound care as per Dr. Gilbert -Dialysis per nephrology team -Pain control -Fall precaution -DVT prophylaxis -GI prophylaxis -Pain control as pain management -Seizure precaution patient on Keppra -Continues present medications -Monitor labs -Plan of care discussed with the patient, galina franks nurse, and Dr. Cavazos. Electronically Signed by Javier Meek NP on 0 05/30/20 at 1213 RPT #:[id number] END OF REPORT 2020-05-28 22:47:00-00:00 [facility] Internal Medicine Prog. Note REPORT#:[id number] REPORT STATUS: Signed DATE:05/28/20 TIME: 2246 PATIENT: DARIEN GROSSMAN UNIT #: [id number] ROOM/BED: [place] [address] : 45 AGE: 74 SEX: M ATTEND: Rosa Curtis MD ADM AUTHOR: Javier Meek NP * ALL edits or amendments must be made on the [employer]/computer document * Subjective Chief Complaint: Right AKA [...] 1500 Intake Total 200 0 Output Total 2199 [...] 05/23 2100 AC 05/12 7 PO 06/22 Albumin Human 12.5 GM ASDIR [...] 05/20 2100 AC 0 05/28 PO 06/19 Triamcinolone 40 MG PROCEDURE 05/20 [...] 75 MG DAILY 05/20 899 AC 05/12 7 PO 06/19 1300 0914 Acetaminophen 650 MG Q6H PRN PRN 05/20 0845 AC PO 06/19 0844 Hydralazine HCl 10 MG Q6H PRN PRN 05/20 0845 AC PO 06/19 0844 Ondansetron HCl 4 MG TID PRN PRN 05/20 0845 AC SL 06/19 0844 Heparin Sodium 5,000 UNIT Q8H 05/19 2200 AC SUBQ 06/19 1300 2121 Epoetin Donny-epbx 4,000 UNIT Kannana@2100 05/19 2099 AC 05/28 SUBQ 06/19 1300 2121 Gabapentin 300 MG BEDTIME 05/19 2099 AC 05/28 PO 06/19 1300 212 Metoprolol Tartrate 25 MG BID 05/19 2099 AC PO 06/19 1300 2120 Trazodone HCl 150 MG BEDTIME 05/19 2099 AC 05/12 PO 06/19 1300 222 Zolpidem Tartrate 5 MG BEDTIME PRN PRN 05/19 AC 05/28 PO 06/19 1300 2120 Vital Signs Date Temp Pulse Resp B/P B/P Mean Pulse Ox FiO2 05/28 36.4-37.3 59-64 17-18 106-153/49-71 68.0- 98.4 96-98 Last Documented: Result Date Time Pulse Ox 97 05/28 2229 B/P 144/64 05/28 2229 B/P Mean 90.3 05/28 2229 Temp 36.4 05/28 2229 Pulse 59 05/28 2230 Resp 18 05/28 2229 O2 Delivery Room air 05/24 1937 24 hour I O ending at 0700: 05/28 0700 05/27 1900 Intake Total 200 0 Output Total 0 Balance -1999 0 Intake, Oral 200 Intake, Oral 0 Supplement Number Voids 1 Output, 0 Hemodialysis PATIENT WEIGHT: Weight (lb): 171 Weight (oz): 12.16 Weight (kg): 77.909 Physical Exam General appearance: alert, awake Neck: no JVD Cardiovascular: regular rate rhythm Respiratory: aerating well, clear to auscultatio n Abdomen: non-tender, normal bowel sounds, soft Extremities: Extremities: RT AKA Neuro/ELECTRICAL CONTROLS TECHNICIAN: alert, oriented x 3 Skin: dry, normal [...] CT of the right femur without contrast: Lvuoj-bds-clkb amputation changes with complex soft tissue fluid [...] of care: -Continue with comprehensive inpatient rehabilit [facility] rehab team -Wound care as per Dr. Gilbert -Dialysis per nephrology team -Pain control -Fall precaution -DVT prophylaxis -GI prophylaxis -Pain control as pain management -Seizure precaution patient on Keppra -Continues present medications -Monitor labs -Plan of care discussed with the patient, galina palma'pierre nurse, and Dr. Cavazos. Electronically Signed by Javier Meek NP on 0 05/30/20 at 1213 Electronically Signed by Danny Keith MD 06/02/20 at 1475 RPT #:[id number] END OF REPORT 2020-05-28 12:46:00-00:00 [facility] Nephrology Progress Note REPORT#:[id number] REPORT STATUS: Signed DATE:05/28/20 TIME: 1246 PATIENT: DARIEN GROSSMAN UNIT #: [id number] ROOM/BED: [place] [address] : 45 AGE: 74 SEX: M ATTEND: Sekou Curtis MD ADM AUTHOR: Jenny Banegas * ALL edits or amendments must be made on the [employer] document * Subjective Chief Complaint: Patient seen [...] with Dr Sriram min. at 1247 RPT #:[id number] END OF REPORT 2020-05-28 12:46:00-00:00 [facility] Nephrology Progress Note REPORT#:[id number] REPORT STATUS: Signed DATE:05/28/20 TIME: 1246 PATIENT: DARIEN GROSSMAN UNIT #: [id number] ROOM/BED: [place] [address] : 45 AGE: 74 SEX: M ATTEND: Sekou Curtis MD ADM AUTHOR: Jenny Banegas * ALL edits or amendments must be made on the [employer]/computer document * Jenny Banegas 05/28/20 1246: Subjective [...] has enough peritoneum left. at 1247 RPT #:[id number] END OF REPORT 2020-05-28 12:46:00-00:00 [facility] Nephrology Progress Note REPORT#:[id number] REPORT STATUS: Signed DATE:05/28/20 TIME: 1245 PATIENT: DARIEN GROSSMAN UNIT #: [id number] ROOM/BED: [place] [address] : 45 AGE: 74 SEX: M ATTEND: Rosa Curtis MD ADM AUTHOR: Jenny Banegas * ALL edits or amendments must be made on the [employer]/computer document * Jenny Banegas 05/28/20 1246: Subjective [...] has enough peritoneum left. at 1247 at 1549 RPT #:[id number] END OF REPORT 2020-05-28 12:01:00-00:00 [facility] ([facility]) Infectious Dis. Progress Note REPORT#:[id number] REPORT STATUS: Signed DATE:05/28/20 TIME: 1201 PATIENT: DARIEN GROSSMAN UNIT #: [id number] ROOM/BED: [place] [address] : 45 AGE: 74 SEX: M ATTEND: Rosa Curtis MD ADM AUTHOR: Jonathan Sheikh NP * ALL edits or amendments must be made on the [employer]/computer document * Subjective Chief Complaint: F/U Right AKA cellulitis HPI: Patient is a 74-year-old male with past medical history of end-stage renal disease on HD, hypertension, hyperlipide liseth who underwent right uezoh-sob-xmkp amputation in March 2020. He was admitted to [facility] after sustaining a fall resulting in a [...] 814 B/P Mean 68.0 05/28 814 Temp 98.6 04/17 0815 Pulse 62 04/17 0815 Resp 17 05/28 0815 O2 Delivery Room air 05/24 1938 Vital Signs Date Temp Pulse Resp B/P B/P Mean Pulse Ox FiO 2 05/27-05/28 97.7-99.0 60-64 16-18 106-144/49-66 68.0-91.6 95-97 [...] no distress Abdomen: non-tender, normal bowel sounds Neuro/ELECTRICAL CONTROLS TECHNICIAN: alert, oriented X 3 Skin: dry, no rash Results Results: labs reviewed, vital signs stable, curr ent med profile rev'd Diagnosis, Assessment Plan Free Text A P: 1. Right AKA stump cellulitis --R/O fluid collection, check CT extremity --Superficial cx: Pseudomonas (R-Merrem), and Co NS --ESR/CRP significant elevated --CT (+) [id number] loculated f luid collection; S/P diagnostic aspiration by IR , GS (-), CX (-) 2. S/P Mechanical fall with SDH 3. ESRD on HD 4. HTN 5. HLD On Zosyn started 05/23 (Day 5) of 7 Plan discussed with: patient, collaborating MD, nurse Electronically Signed by Jonathan Sheikh CALCINE 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 on at 1203 RPT #:[id number] END OF REPORT 2020-05-28 12:01:00-00:00 [facility] ([facility]) Infectious Dis. Progress Note REPORT#:[id number] REPORT STATUS: Signed DATE:05/28/20 TIME: 1201 PATIENT: DARIEN GROSSMAN UNIT #: [id number] ROOM/BED: [place] [address] : 45 AGE: 74 SEX: M ATTEND: Rosa Curtis MD ADM AUTHOR: Jonathan Sheikh NP * ALL edits or amendments must be made on the el [employer]/computer document * Subjective Chief Complaint: F/U Right AKA cellulitis HPI: Patient is a 74-year-old male with past medical history of end-stage renal disease on HD, hypertension, hyperlipide liseth who underwent right ufhbt-gxl-ghid amputation in March 2020. He was admitted to [facility] after sustaining a fall resulting in a [...] 05/28 08 O2 Delivery Room air 05/24 1938 Vital [...] no distress Abdomen: non-tender, normal bowel sounds Neuro/ELECTRICAL CONTROLS TECHNICIAN: alert, oriented X 3 Skin: dry, no rash Results Results: labs reviewed, vital signs stable, curr ent med profile rev'd Diagnosis, Assessment Plan Free Text A P: 1. Right AKA stump cellulitis --R/O fluid collection, check CT extremity --Superficial cx: Pseudomonas (R-Merrem), and Co NS --ESR/CRP significant elevated --CT (+) [id number] loculated f luid collection; S/P diagnostic aspiration by IR , GS (-), CX (-) 2. S/P Mechanical fall with SDH 3. ESRD on HD 4. HTN 5. HLD On Zosyn started 05/23 (Day 5) of 7 Plan discussed with: patient, collaborating MD, nurse Electronically Signed by Jonathan Sheikh NP on at 1203 at 0816 RPT #:[id number] END OF REPORT 2020-05-28 11:52:00-00:00 [facility] ([facility]) Wound Care Progress Note REPORT#:[id number] REPORT STATUS: Signed DATE:05/28/20 TIME: 1152 PATIENT: DARIEN GROSSMAN UNIT #: [id number] ROOM/BED: [place] [address] : 45 AGE: 74 SEX: M ATTEND: Rosa Curtis MD ADM AUTHOR: Nicky Herron * ALL edits or amendments must be made on the [employer]/computer document * Subjective Chief Complaint: FU R [...] [ ] Case Management at 2044 RPT #:[id number] END OF REPORT 2020-05-28 11:52:00-00:00 [facility] ([facility]) Wound Care Progress Note REPORT#:[id number] REPORT STATUS: Signed DATE:05/28/20 TIME: 1152 PATIENT: DARIEN GROSSMAN UNIT #: [id number] ROOM/BED: [place] [address] : 45 AGE: 74 SEX: M ATTEND: Rosa Curtis MD ADM AUTHOR: Nicky Herron NP * ALL edits or amendments must be made on the [employer]/computer document * Nicky Herron. 05/28/20 1152: Subjective [...] w ere reviewed. I agree with the PA/CALCINE 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's findings, exam, and plan. at 2044 RPT #:[id number] END OF REPORT 2020-05-28 11:52:00-00:[address] [facility] ([facility]) Wound Care Progress Note REPORT#:[id number] REPORT STATUS: Signed DATE:05/28/20 TIME: 1152 PATIENT: DARIEN GROSSMAN UNIT #: [id number] ROOM/BED: [place] [address] : 45 AGE: 74 SEX: M ATTEND: Rosa Curtis MD ADM AUTHOR: Nicky Herron NP * ALL edits or amendments must be made on the [employer]/computer document * Nicky Herron. 05/28/20 1152: Subjective Chief Complaint: FU R AKA wounds; c/o pain at stump Objective General VS: Last Documented: Result Date Time Pulse Ox 96 05/28 814 B/P 106/49 05/28 814 B/P Mean 68.0 05/28 0815 Temp 37.0 [...] w ere reviewed. I agree with the PA/CALCINE 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's findings, exam, and plan. at 2044 at 2134 [facility] #:[id number] END OF REPORT 2020-05-28 11:10:00-00:[address] [facility] ([facility]) Pain Management Progress Note REPORT#:[id number] REPORT STATUS: Signed DATE:05/28/20 TIME: 1110 PATIENT: DARIEN GROSSMAN UNIT #: [id number] ROOM/BED: [place] [address] : 45 AGE: 74 SEX: M ATTEND: Rosa Curtis MD ADM AUTHOR: Sohail Wells * ALL edits or amendments must be made on the [employer]/computer document * Subjective Chief complaint: Patient seen [...] B/P B/P Mean Pulse Ox FiO 2 05/27-05/28 36.5-37.2 60-64 16-18 106-144/49-66 68.0-91.6 95-97 Last Documented: Result Date Time Pulse Ox 96 05/28 0815 B/P 106/49 05/28 0815 B/P Mean 68.0 05/28 0815 Temp 37.0 05/28 0815 Pulse 62 05/28 0815 Resp 17 05/28 0815 O2 Delivery Room air 05/24 1937 24 [...] all, no edema, pedal pulses, right AKA Neuro/ELECTRICAL CONTROLS TECHNICIAN: no motor deficits, no sensory deficit s, [...] helps with the pain. Patient declined -05/24-decrease [place] 10/325 to [place] 7.5/325 james ry 4 as needed -Lidoderm patch to left thigh daily -[place] 7.5/325 mg oral every 4 hours as [...] Case discussed with Dr Lofton whom agrees. 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: Total Prescriptions 28 Total Private Pay 0 Total Prescribers 4 Total Pharmacies 1 05/06/2020 1 05/06/2020 HYDROCODONE-ACETAMIN 10- 325 MG 30.0 7 [facility] [id number] [facility] (1602) 0 42.86 MME Comm Ins [place] 04/20/2020 1 12/24/2019 ZOLPIDEM TARTRATE 10 MG TABLET 30.0 30 PE LAT [id number] [facility] (1602) 4 [place] 03/21/2020 1 12/24/2019 ZOLPIDEM TARTRATE 10 MG TABLET 30.0 30 PE LAT [id number] [facility] (1602) 3 [place] 02/20/2020 1 12/24/2019 ZOLPIDEM TARTRATE 10 MG TABLET 30.0 30 PE LAT [id number] [facility] (1602) 2 [place] 01/21/2020 1 12/24/2019 ZOLPIDEM TARTRATE 10 MG TABLET 30.0 30 PE LAT [id number] [facility] (1602) 1 [place] 12/24/2019 1 12/24/2019 ZOLPIDEM TARTRATE 10 MG TABLET 30.0 30 PE LAT [id number] [facility] (1602) 0 [place] 11/25/2019 1 07/07/2019 ZOLPIDEM TARTRATE 10 MG TABLET 30.0 30 PE LAT [id number] [facility] (1602) 5 Comm Ins [place] [facility] (1227) [address] [place] [id number] at 1111 RPT #:[id number] END OF REPORT 2020-05-28 11:10:00-00:00 [facility] REPORT#:[id number] REPORT STATUS: Signed DATE:05/28/20 TIME: 1110 PATIENT: DARIEN GROSSMAN UNIT #: [id number] ROOM/BED: [place] [address] : 45 AGE: 74 SEX: M ATTEND: Rosa Curtis MD ADM AUTHOR: Sohail Wells * ALL edits or amendments must be made on the el [employer]/computer document * Subjective Chief complaint: Patient seen [...] Ox 96 05/28 814 B/P 106/49 05/28 0815 B/P Mean 68.0 05/28 08 Temp 37.0 05/28 814 Pulse 62 05/28 814 Resp 17 05/28 814 O2 Delivery Room air 05/24 1937 24 [...] all, no edema, pedal pulses, right AKA Neuro/ELECTRICAL CONTROLS TECHNICIAN: no motor deficits, no sensory deficit s, [...] helps with the pain. Patient declined -05/24-decrease [place] 10/325 to [place] 7.5/325 james ry 4 as needed -Lidoderm patch to left thigh daily -[place] 7.5/325 mg oral every 4 hours as [...] Case discussed with Dr Lofton whom agrees. 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: Total Prescriptions 28 Total Private Pay 0 Total Prescribers 4 Total Pharmacies 1 05/06/2020 1 05/06/2020 HYDROCODONE-ACETAMIN 10- 325 MG 30.0 7 [facility] [id number] [facility] (1602) 0 42.86 MME Comm Ins [place] 04/20/2020 1 12/24/2019 ZOLPIDEM TARTRATE 10 MG TABLET 30.0 30 PE LAT [id number] [facility] (1602) 4 Comm Ins [place] 03/21/2020 1 12/24/2019 ZOLPIDEM TARTRATE 10 MG TABLET 30.0 30 PE LAT [id number] [facility] (1602) 3 Comm Ins [place] 02/20/2020 1 12/24/2019 ZOLPIDEM TARTRATE 10 MG TABLET 30.0 30 PE LAT [id number] [facility] (1602) 2 Comm Ins [place] 01/21/2020 1 12/24/2019 ZOLPIDEM TARTRATE 10 MG TABLET 30.0 30 PE LAT [id number] [facility] (1602) 1 [place] Ins [place] 12/24/2019 1 12/24/2019 ZOLPIDEM TARTRATE 10 MG TABLET 30.0 30 PE LAT [id number] [facility] (1602) 0 [place] Ins [place] 11/25/2019 1 07/07/2019 ZOLPIDEM TARTRATE 10 MG TABLET 30.0 30 PE LAT [id number] [facility] (1602) 5 Comm Ins [place] [facility] (1460) [address] [place] [id number] at 1111 Electronically Signed by Herman Lofton MD on 0 05/29/20 at 1820 RPT #:[id number] END OF REPORT 2020-05-28 06:40:00-00:00 [facility] Rehab Progress Note REPORT#:[id number] REPORT STATUS: Signed DATE:05/28/20 TIME: 06 PATIENT: DARIEN GROSSMAN UNIT #: [id number] ROOM/BED: [place] [address] : 45 AGE: 74 SEX: M ATTEND: Rosa Curtis MD ADM AUTHOR: Clint Dunaway * ALL edits or amendments must be made on the el ectronic/computer document * Clint Dunaway PA-C 05/28/20 0640: Subjective Chief complaint: Rehab follow-up Generalized weakness Patient doing well Affect is improved Slept well BM+ Denies GUTIÉRREZ/N/V/D 14 systems reviewed and neg. except that above. Objective General VS: Vital Signs: Date Time Temp Pulse Resp B/P B/P Pulse O2 O2 F low FiO2 Mean Ox Delivery Rate 05/27 2103 99.0 64 18 117/64 81.3 [...] O: PATIENT PERFORMED ROLLING WITH IND, SUPINE TO SIT WITH IND, SIT TO SUPINE WITH IND. Pt. INSTRUCTED ON STAND PIVOT TRANSFER WITH SBA, VC TO MOVE WC LEG REST OUT THE WAY FOR SAFETY. Pt. PERFORMED SIT TO STAND WITH IND. Pt . AMBULATED WITH RW FOR 10 FT WITH IND, 10 FT UNEVEN SURFA CE WITH SBA DUE TO SOME UNSTEADINESS, 50 FT WITH 2 TURNS AN D SBA W/ VC FOR SLOW TURNS WITH RW, 150 FT W/ RW W/ SBA DU E TO FATIGUE AND Pt. NEEDING WC TO TAKE REST. Pt. PERFORMED 1 STEP WITH RW AND SBA DUE TO UNSTEADINESS WHEN BRINGING U P RW. Pt. PERFORMED WCMOBILITY FOR 50 FT [...] MMT moves all against gravity. BUE 4/5, CLOTH BOOKER GOOD, RHF 3+/5, LLE 4/5. L calf NT, No cords. TTP L lateral thigh above trochanter bursae. Neuro/ELECTRICAL CONTROLS TECHNICIAN: alert, oriented X 3, CNII-XII intact, normal [...] greater trochanteric bursitis-possible injection as per pain medical staff services manager-continue [place] and gabapentin -Left thigh pain, lateral femoral [...] nep hrology, pain management, ID, wound care -Domeniac for a total of 7 days-to be completed to efrain 05/21-completed -Continue right AKA incisional dressing care-wou nds looking better -Prosthetic company consulted for evaluation -Continue aspirin and Plavix-Lasix -History of depression/anxie ty continue Carlyn Dixon Effexor-probation officer bring in patient's home Pristiq -Monitor hemoglobin on Epogen -Hemodialysis as per nephrology-Saturday -Blood pressure currently stable on current medi cation -Renal diet -Left hip pain-x-ray of the left hip and pelvis showed no acute osseous fracture. The hip joint spaces are preserved-sat -Elevated WBC-possible infec amado right NASEEM-culture wound [...] DME-HAS WC, TT 35 min>50% with tiffanie g with patient about progress, open wounds [...] findi ngs and plan as documented by ZAI Granado. at 2040 RPT #:[id number] END OF REPORT 2020-05-28 06:40:00-00:00 [facility] Rehab Progress Note REPORT#:[id number] REPORT STATUS: Signed DATE:05/28/20 TIME: 639 PATIENT: DARIEN GROSSMAN UNIT #: [id number] ROOM/BED: [place] [address] : 45 AGE: 74 SEX: M ATTEND: Rosa Curtis MD ADM AUTHOR: Clint Dunaway * ALL edits or amendments must be made on the [employer]/computer document * Clint Dunaway PA-C 05/28/20 0640: Subjective Chief complaint: Rehab follow-up Generalized weakness Patient doing well Affect is improved Slept well BM+ Denies GUTIÉRREZ/N/V/D 14 systems reviewed and neg. except that above. Objective General VS: Vital Signs: Date Time Temp Pulse Resp B/P B/P Pulse O2 O2 F low FiO2 Mean Ox Delivery Rate 05/27 2103 99.0 64 18 117/64 81.3 [...] MMT moves all against gravity. BUE 4/5, CLOTH BOOKER GOOD, RHF 3+/5, LLE 4/5. L calf NT, No cords. TTP L lateral thigh above trochanter bursae. Neuro/ELECTRICAL CONTROLS TECHNICIAN: alert, oriented X 3, CNII-XII intact, normal [...] greater trochanteric bursitis-possible injection as per pain medical staff services manager-continue [place] and gabapentin -Left thigh pain, lateral femoral [...] -History of depression/anxie ty continue BuSpar, Desyrel, Effexor-probation officer bring in patient's home Pristiq -Monitor hemoglobin on Epogen -Hemodialysis as per nephrology-Saturday -Blood pressure currently stable on current medi cation -Renal diet -Left hip pain-x-ray of the left hip and pelvis showed no acute osseous fracture. The hip joint spaces are preserved-mon itor -Elevated WBC-possible infec amado right NASEEM-culture [...] and he agrees with vascular surgery consul jane. I would like to treat this conservatively [...] min>50% with discussin g with patient about progress, open wounds [...] ZIA Granado. at 2040 at 1708 RPT #:[id number] END OF REPORT 2020-05-28 06:35:00-00:[address] [facility] ([facility] Clinical Note REPORT#:[id number] REPORT STATUS: Signed DATE:05/28/20 TIME: 634 PATIENT: DARIEN GROSSMAN UNIT #: [id number] ROOM/BED: [place] [address] : 45 AGE: 74 SEX: M ATTEND: Rosa Curtis MD ADM AUTHOR: Danny Keith MD * ALL edits or amendments must be made on the [employer]/computer document * Clinical Note Note: 74-year-old male [...] Keith MD n 06/01/20 at 1322 RPT #:[id number] END OF REPORT 2020-05-27 12:30:00-00:00 [facility] Nephrology Progress Note REPORT#:[id number] REPORT STATUS: Signed DATE:05/27/20 TIME: 1230 PATIENT: DARIEN GROSSMAN UNIT #: [id number] ROOM/BED: [place] [address] : 45 AGE: 74 SEX: M ATTEND: Rosa Curtis MD ADM AUTHOR: Merissa Dillon MD * ALL edits or amendments must be made on the [employer]/computer document * Subjective Chief Complaint: Patient seen and examined. No new complaints. Objective General VS/I O: Vital Signs: Date Time Temp Pulse Resp B/P B/P Pulse O2 O2 Flow FiO2 Mean Ox Delivery Rate 05/27 0727 [...] edema, Rt AKA Results Findings/Data: Laboratory Tests 05/27 0400 Chemistry [...] been stable. -Psych f/u. at 1230 RPT #:[id number] END OF REPORT 2020-05-27 11:53:00-00:[address] [facility] ([facility]) Infectious Dis. Progress Note REPORT#:[id number] REPORT STATUS: Signed DATE:05/27/20 TIME: 1153 PATIENT: DARIEN GROSSMAN UNIT #: [id number] ROOM/BED: [place] [address] : 45 AGE: 74 SEX: M ATTEND: Rosa Curtis MD ADM AUTHOR: Jonathan Sheikh NP * ALL edits or amendments must be made on the [employer]/computer document * Subjective Chief Complaint: F/U Right AKA cellulitis HPI: Patient is a 74-year-old male with past medical history of end-stage renal disease on HD, hypertension, hyperlipide liseth who underwent right lzgzr-guc-jcmf amputation in March 2020. He was admitted to [facility] after sustaining a fall resulting in a [...] Ox 94 05/27 07 B/P 109/60 05/27 726 B/P Mean 76.3 05/27 0727 Temp 97.3 05/27 726 Pulse 54 05/27 [...] no distress Abdomen: non-tender, normal bowel sounds Neuro/ELECTRICAL CONTROLS TECHNICIAN: alert, oriented X 3 Skin: dry, no [...] Co NS --ESR/CRP significant elevated --CT (+) [id number] loculated f luid collection; S/P diagnostic aspiration by IR , GS (-), CX (-) 2. S/P Mechanical fall with SDH 3. ESRD on HD 4. HTN 5. HLD On Zosyn started 05/23 (Day 4) of 7 Plan discussed with: patient, nurse Electronically Signed by Jonathan Sheikh NP on at 1154 RPT #:[id number] END OF REPORT 2020-05-27 11:53:00-00:[address] [facility] ([facility] Infectious Dis. Progress Note REPORT#:[id number] REPORT STATUS: Signed DATE:05/27/20 TIME: 1153 PATIENT: DARIEN GROSSMAN UNIT #: [id number] ROOM/BED: [place] [address] : 45 AGE: 74 SEX: M ATTEND: Sekou Curtis MD ADM AUTHOR: Jonathan Sheikh NP * ALL edits or amendments must be made on the [employer]/computer document * Subjective Chief Complaint: F/U Right AKA cellulitis HPI: Patient is a 74-year-old male with past medical history of end-stage renal disease on HD, hypertension, hyperlipide liseth who underwent right pmgrh-trd-xpoy amputation in March 2020. He was admitted to [facility] after sustaining a fall resulting in a [...] Ox 94 05/27 726 B/P 109/60 05/27 726 B/P Mean 76.3 05/27 726 Temp 97.3 05/27 07 Pulse 54 05/27 07 Resp 16 05/27 726 O2 Delivery Room air 05/24 193 Vital Signs Date Temp Pulse Resp B/P B/P Mean Pulse Ox FiO 2 05/26-05/27 97.3-99.1 54-76 16-18 109-152/60-71 76.3-97.9 94-99 [...] no distress Abdomen: non-tender, normal bowel sounds Neuro/ELECTRICAL CONTROLS TECHNICIAN: alert, oriented X 3 Skin: dry, no [...] Co NS --ESR/CRP significant elevated --CT (+) [id number] loculated f luid collection; S/P diagnostic aspiration by IR , GS (-), CX (-) 2. S/P Mechanical fall with SDH 3. ESRD on HD 4. HTN 5. HLD On Zosyn started 05/23 (Day 4) of 7 Plan discussed with: patient, nurse Electronically Signed by Jonathan Sheikh NP on at 1154 at 2155 RPT #:[id number] END OF REPORT 2020-05-27 11:39:00-00:00 [facility] Note REPORT#:[id number] REPORT STATUS: Signed DATE:05/27/20 TIME: 1139 PATIENT: DARIEN GROSSMAN UNIT #: [id number] ROOM/BED: [place] [address] : 45 AGE: 74 SEX: M ATTEND: Rosa Curtis MD ADM AUTHOR: Javier Meek NP * ALL edits or amendments must be made on the [employer]/computer document * Subjective Chief Complaint: Right AKA [...] bowel sounds, soft Extremities: Extremities: RT AKA Neuro/ELECTRICAL CONTROLS TECHNICIAN: alert, oriented x 3 Skin: dry, normal [...] CT of the right femur without contrast: Jlgkf-ufb-kyto amputation changes with complex soft tissue fluid [...] of care: -Continue with comprehensive inpatient [facility]habil[facility] rehab [facility] -Pain control -Fall precaution -DVT prophylaxis -GI prophylaxis -Pain control as pain management -Seizure precaution patient on Keppra -Continues present medications -Monitor labs -Plan of care discussed with the patient, galina marcano nurse, and Dr. Cavazos. Electronically Signed by Javier Meek NP on 0 05/29/20 at 0631 RPT #:[id number] END OF REPORT 2020-05-27 11:39:00-00:00 [facility] Internal Medicine Prog. Note REPORT#:[id number] REPORT STATUS: Signed DATE:05/27/20 TIME: 1139 PATIENT: DARIEN GROSSMAN UNIT #: [id number] ROOM/BED: [place] [address] : 45 AGE: 74 SEX: M ATTEND: Rosa Curtis MD ADM AUTHOR: Javier Meek NP * ALL edits or amendments must be made on the ShareGro[employer]/computer document * Javier Meek 05/27/20 1139: Subjective [...] bowel sounds, soft Extremities: Extremities: RT AKA Neuro/ELECTRICAL CONTROLS TECHNICIAN: alert, oriented x 3 Skin: dry, normal [...] CT of the right femur without contrast: Dvlqr-jqf-nmvn amputation changes with complex soft tissue fluid [...] of care: -Continue with comprehensive inpatient rehabil[facility] rehab [facility] -Pain control -Fall precaution -DVT prophylaxis -GI prophylaxis -Pain control as pain management -Seizure precaution patient on Keppra -Continues present medications -Monitor labs -Plan of care discussed with the patient, galina palma's nurse, and Dr. Cavazos. Danny Cavazos 05/29/20 2324: Attestations Physician Attestation Agree w/findings plan: Patient seen and examined on 05/27/2020. I agree with the findings and plan as documented by JOSE Meek. Plan of care coordinat ed with JOSE Meek. Pertinent labs, Imaging, and skin care consultant evaluations review ed. 74-year-old male was [...] his labs. Electronically Signed by Javier Meek CALCINE 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 on 0 05/29/20 at 0631 RPT #:[id number] END OF REPORT 2020-05-27 11:39:00-00:00 [facility] Prog. Note REPORT#:[id number] REPORT STATUS: Signed DATE:05/27/20 TIME: 1138 PATIENT: DARIEN GROSSMAN UNIT #: [id number] ROOM/BED: [place] [address] : 45 AGE: 74 SEX: M ATTEND: Rosa Curtis MD ADM AUTHOR: Javier Meek CALCINE 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 * ALL edits or amendments must be made on the ShareGro[employer]/computer document * Javier Meek 05/27/20 1139: Subjective [...] bowel sounds, soft Extremities: Extremities: RT AKA Neuro/ELECTRICAL CONTROLS TECHNICIAN: alert, oriented x 3 Skin: dry, normal [...] CT of the right femur without contrast: Fpvri-wsm-bzbr amputation changes with complex soft tissue fluid [...] of care: -Continue with comprehensive inpatient rehabil[facility] rehab team -Pain control -Fall precaution -DVT [...] with JOSE Meek. Pertinent labs, Imaging, and skin care consultant evaluations review ed. 74-year-old male was [...] NP on 0 05/29/20 at 0631 RPT #:[id number] END OF REPORT 2020-05-27 11:39:00-00:[address] [facility] ([facility]) Internal Medicine Prog. Note REPORT#:[id number] REPORT STATUS: Signed DATE:05/27/20 TIME: 1139 PATIENT: DARIEN GROSSMAN UNIT #: [id number] ROOM[facility]BED: [facility] : 45 AGE: 74 SEX: M ATTEND: Rosa Curtis MD ADM AUTHOR: Javier Meek CALCINE 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 * ALL edits or amendments must be made on the el [employer]/computer document * Javier Meek 05/27/20 1139: Subjective [...] bowel sounds, soft Extremities: Extremities: RT AKA Neuro/ELECTRICAL CONTROLS TECHNICIAN: alert, oriented x 3 Skin: dry, normal [...] CT of the right femur without contrast: Iztuc-vlz-fktl amputation changes with complex soft tissue fluid [...] of care: -Continue with comprehensive inpatient rehabil[facility] rehab team -Pain control -Fall precaution -DVT prophylaxis -GI prophylaxis -Pain control as pain management -Seizure precaution patient on Keppra -Continues present medications -Monitor labs -Plan of care discussed with the patient, galina palma'pierre nurse, and Dr. Cavazos. Danny Cavazos 05/29/20 2324: Attestations Physician Attestation Agree w/findings plan: Patient seen and examined on 05/27/2020. I agree with the findings and plan as documented by JOSE eMek. Plan of care coordinat ed with JOSE Meek. Pertinent labs, Imaging, and skin care consultant evaluations review ed. 74-year-old male was [...] Meek NP on 0 05/29/20 at 0631 Electronically Signed by Danny Keith MD 05/30/20 at 0011 [facility] #:[id number] END OF REPORT 2020-05-27 11:08:00-00:[address] [facility] ([facility]) Pain Management Progress Note REPORT#:[id number] REPORT STATUS: Signed DATE:05/27/20 TIME: 1108 PATIENT: DARIEN GROSSMAN UNIT #: [id number] ROOM[facility]BED: [facility] : 45 AGE: 74 SEX: M ATTEND: Rosa Curtis MD ADM AUTHOR: Sohail Wells * ALL edits or amendments must be made on the [employer]/computer document * Subjective Chief complaint: Patient seen and examined. Chart and VIJAYA garza d. Patient is doing okay, reports no new [...] all, no edema, pedal pulses, right AKA Neuro/ELECTRICAL CONTROLS TECHNICIAN: no motor deficits, no sensory deficit s, [...] helps with the pain. Patient declined -05/24-decrease [place] 10/325 to [place] 7.5/325 james ry 4 as needed -Lidoderm patch to left thigh daily -[place] 7.5/325 mg oral every 4 hours as [...] Case discussed with Dr Lofton whom agrees. 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: Total Prescriptions 28 Total Private Pay 0 Total Prescribers 4 Total Pharmacies 1 05/06/2020 1 05/06/2020 HYDROCODONE-ACETAMIN 10- 325 MG 30.0 7 [facility] SPA [id number] [facility] (1602) 0 42.86 MME Comm Ins [place] 04/20/2020 1 12/24/2019 ZOLPIDEM TARTRATE 10 MG TABLET 30.0 30 PE LAT [id number] [facility] (1602) 4 Comm Ins [place] 03/21/2020 1 12/24/2019 ZOLPIDEM TARTRATE 10 MG TABLET 30.0 30 PE LAT [id number] [facility] (1602) 3 Comm Ins [place] 02/20/2020 1 12/24/2019 ZOLPIDEM TARTRATE 10 MG TABLET 30.0 30 PE LAT [id number] [facility] (1602) 2 Comm Ins [place] 01/21/2020 1 12/24/2019 ZOLPIDEM TARTRATE 10 MG TABLET 30.0 30 PE LAT [id number] [facility] (1602) 1 Comm Ins [place] 12/24/2019 1 12/24/2019 ZOLPIDEM TARTRATE 10 MG TABLET 30.0 30 PE LAT [id number] [facility] (1602) 0 Comm Ins [place] 11/25/2019 1 07/07/2019 ZOLPIDEM TARTRATE 10 MG TABLET 30.0 30 PE LAT [id number] [facility] (1602) 5 Comm Ins [place] [id number] (0813) [address] [place] [address] at 1111 RPT #:[id number] END OF REPORT 2020-05-27 11:08:00-00:[address] [facility] ([facility]) Pain Management Progress Note REPORT#:[id number] REPORT STATUS: Signed DATE:05/27/20 TIME: 1108 PATIENT: DARIEN GROSSMAN UNIT #: [id number] ROOM/BED: [place] [address] : 45 AGE: 74 SEX: M ATTEND: Rosa Curtis MD ADM AUTHOR: Sohail Wells * ALL edits or amendments must be made on the el [employer]/computer document * Subjective Chief complaint: Patient seen [...] all, no edema, pedal pulses, right AKA Neuro/ELECTRICAL CONTROLS TECHNICIAN: no motor deficits, no sensory deficit s, [...] helps with the pain. Patient declined -05/24-decrease [place] 10/325 to [place] 7.5/325 james ry 4 as needed -Lidoderm patch to left thigh daily -[place] 7.5/325 mg oral every 4 hours as [...] Case discussed with Dr Lofton whom agrees. 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: Total Prescriptions 28 Total Private Pay 0 Total Prescribers 4 Total Pharmacies 1 05/06/2020 1 05/06/2020 HYDROCODONE-ACETAMIN 10- 325 MG 30.0 7 CH SPA [id number] [facility] (1602) 0 42.86 MME Comm Ins [place] 04/20/2020 1 12/24/2019 ZOLPIDEM TARTRATE 10 MG TABLET 30.0 30 PE LAT [id number] [facility] (1602) 4 Comm Ins [place] 03/21/2020 1 12/24/2019 ZOLPIDEM TARTRATE 10 MG TABLET 30.0 30 PE LAT [id number] [facility] (1602) 3 Comm Ins [place] 02/20/2020 1 12/24/2019 ZOLPIDEM TARTRATE 10 MG TABLET 30.0 30 PE LAT [id number] [facility] (1602) 2 Comm Ins [place] 01/21/2020 1 12/24/2019 ZOLPIDEM TARTRATE 10 MG TABLET 30.0 30 PE LAT [id number] [facility] (1602) 1 Comm Ins [place] 12/24/2019 1 12/24/2019 ZOLPIDEM TARTRATE 10 MG TABLET 30.0 30 PE LAT [id number] [facility] (1602) 0 Comm Ins [place] 11/25/2019 1 07/07/2019 ZOLPIDEM TARTRATE 10 MG TABLET 30.0 30 PE LAT [id number] [facility] (1602) 5 Comm Ins [place] [id number] (1164) [address] [place] [id number] at 1111 Electronically Signed by Herman Lofton MD on 0 05/29/20 at 8126 RPT #:[id number] END OF REPORT 2020-05-27 10:41:00-00:00 HC[facility]L [facility] ([facility]) Wound Care Progress Note REPORT#:[id number] REPORT STATUS: Signed DATE:05/27/20 TIME: 1041 PATIENT: DARIEN GROSSMAN UNIT #: [id number] ROOM/BED: [place] [address] : 45 AGE: 74 SEX: M ATTEND: Rosa Curtis MD ADM AUTHOR: Shaila Gilbert * ALL edits or amendments must be made on the [employer] document * Subjective Chief Complaint: FU R [...] ordering and monitor fo od intake 3. [place] food preferences within diet and encourage oral [...] 5 AC 05/27 Acetaminophen PO 06/10 1200 2057 Sertraline HCl 25 MG BEDTIME 05/23 2100 AC 05/12 6 PO 06/22 2058 205 Albumin Human 12.5 GM ASDIR PRN 05/23 [...] Q8H 05/19 2199 AC SUBQ 06/19 1300 2107 Epoetin Donny-epbx 4,000 UNIT TuThSa@2100 05/19 2099 AC 05/26 SUBQ 06/19 1300 2104 Gabapentin 300 MG BEDTIME 05/19 2099 AC 05/27 PO 06/19 1300 2105 Metoprolol Tartrate 25 MG BID 05/19 2099 AC PO 06/19 1300 2105 Trazodone HCl 150 MG BEDTIME 05/19 2099 AC 05/12 PO 06/19 1300 220 Zolpidem Tartrate 5 MG BEDTIME PRN PRN 05/19 AC 05/27 PO 06/19 1300 205 Laboratory Tests: 05/28 399 Chemistry Sodium (134 - 147 [...] [ ] Case Management at 2233 RPT #:[id number] END OF REPORT 2020-05-27 06:11:00-00:00 [facility]L [facility] Rehab Progress Note REPORT#:[id number] REPORT STATUS: Signed DATE:05/27/20 TIME: 610 PATIENT: DARIEN GROSSMAN UNIT #: [id number] ROOM/BED: [place] [address] : 45 AGE: 74 SEX: M ATTEND: Rosa Curtis MD ADM AUTHOR: Clint Dunaway * ALL edits or amendments must be made on the el [employer]/computer document * Clint Dunaway PA-C 05/27/20 0611: Subjective Chief complaint: Rehab follow-up Generalized weakness Patient doing well Affect is improved Slept well BM+ Denies GUTIÉRREZ/N/V/D 14 systems reviewed and neg. except that [...] NOT NEED TO A CAR TRANSFER UNTIL DC SINCE HE FEELS CONFIDENT WITH IT FROM PRACTICING IT PRIOR TO BEING AT IS REHAB. O: ALAINA PERFORMED EOB<>WC TRANSFER WITH SBA, VC TO [...] STRENGTHENING. A: PATIENT PERFORMED TREATMENT WELL, HOWEVER, Pt. FEARFUL WHEN PERFORMING 1 CURB STEP WITH RW AND WHEN BEING INTRODUCED TO NEW EXERCISE EQUIPMENT. Pt. STIL L REQUIRES SBA CUES IN ROOM WITH TRANSFERS [...] MMT moves all against gravity. BUE 4/5, CLOTH BOOKER GOOD, RHF 3+/5, LLE 4/5. L calf NT, No cords. TTP L lateral thigh above trochanter bursae. Neuro/ELECTRICAL CONTROLS TECHNICIAN: alert, oriented X 3, CNII-XII intact, normal [...] greater trochanteric bursitis-possible injection as per pain medical staff services manager-continue [place] and gabapentin -Left thigh pain, lateral femoral [...] nep hrology, pain management, ID, wound care -Ke[place]ora for a total of 7 days-to be completed to efrain 05/21-completed -Continue right AKA incisional dressing care-wou nds looking better -Prosthetic company consulted for evaluation -Continue aspirin and Plavix-Lasix -History of depression/anxie ty continue Carlyn Dixon, Marjanexluisa-probation officer bring in patient's home Pristiq -Monitor hemoglobin [...] started on Zoloft-wean venlafaxine over time. Di stanton haqpirone. Continue trazodone and Ambien for insomnia-as per [...] documented by ZIA Granado at 1202 RPT #:[id number] END OF REPORT 2020-05-27 06:11:00-00:[address] [facility] ([facility]) Rehab Progress Note REPORT#:[id number] REPORT STATUS: Signed DATE:05/27/20 TIME: 06 PATIENT: DARIEN GROSSMAN UNIT #: [id number] ROOM/BED: [facility] [place] : 45 AGE: 74 SEX: M ATTEND: Sekou Curtis MD ADM AUTHOR: Clint Dunaway * ALL edits or amendments must be made on the el [employer]/computer document * Clint Dunaway PA-C 05/27/20 0611: Subjective Chief complaint: Rehab follow-up Generalized weakness Patient doing well Affect is improved Slept well BM+ Denies GUTIÉRREZ/N/V/D 14 systems reviewed and neg. except that [...] NOT NEED TO A CAR TRANSFER UNTIL [place] SINCE HE FEELS CONFIDENT WITH IT FROM [...] STRENGTHENING. A: PATIENT PERFORMED TREATMENT WELL, HOWEVER, Pt. FEARFUL WHEN PERFORMING 1 CURB STEP WITH RW AND WHEN BEING INTRODUCED TO NEW EXERCISE EQUIPMENT. Pt. STIL L REQUIRES SBA CUES IN ROOM WITH TRANSFERS [...] MMT moves all against gravity. BUE 4/5, CLOTH BOOKER GOOD, RHF 3+/5, LLE 4/5. L calf NT, No cords. TTP L lateral thigh above trochanter bursae. Neuro/ELECTRICAL CONTROLS TECHNICIAN: alert, oriented X 3, CNII-XII intact, normal [...] greater trochanteric bursitis-possible injection as per pain medical staff services manager-continue [place] and gabapentin -Left thigh pain, lateral femoral [...] -History of depression/anxie ty continue Carlyn Dixon Effexor-probation officer bring in patient's home Pristiq -Monitor hemoglobin [...] documented by ZIA Granado at 1202 at 2113 RPT #:[id number] END OF REPORT 2020-05-27 01:48:00-00:[address] [facility] ([facility] Clinical Note REPORT#:[id number] REPORT STATUS: Signed DATE:05/27/20 TIME: 147 PATIENT: DARIEN GROSSMAN UNIT #: [id number] ROOM/BED: [place] [address] : 45 AGE: 74 SEX: M ATTEND: Rosa Curtis MD ADM AUTHOR: Danny Keith MD * ALL edits or amendments must be made on the el [employer]ronic/computer document * Clinical Note Note: 74-year-old male [...] Keith MD n 06/01/20 at 1322 RPT #:[id number] END OF REPORT 2020-05-26 17:03:00-00:00 HC[facility]L [facility] ([facility]) Wound Care Progress Note REPORT#:[id number] REPORT STATUS: Signed DATE:05/26/20 TIME: 1702 PATIENT: DARIEN GROSSMAN UNIT #: [id number] ROOM/BED: [place] [address] : 45 AGE: 74 SEX: M ATTEND: Rosa Curtis MD ADM AUTHOR: Shaila Gilbert * ALL edits or amendments must be made on the [employer] document * Subjective Chief Complaint: FU R [...] ordering and monitor fo od intake 3. [place] food preferences within diet and encourage oral intake >75% 4. ADD LIQUACEL DAILY Dietitian name: Breann Olivera DIETITIANUJ Assessment completed: 05/26/20 Provider comments on imported [...] 3.375 GM Q12H 05/23 1300 AC 0 05/26 Tazobactam Sod IV 05/30 1259 1453 Sodium Chloride 100 ML Collagenase 1 APPLIC DAILY 05/22 0900 AC 05/26 TOPICAL 06/21 0859 0831 Lidocaine [...] Q8H 05/19 2199 AC SUBQ 06/19 1300 1505 Epoetin Donny-epbx 4,000 UNIT TuThSa@2100 05/19 2099 AC 05/24 SUBQ 06/19 1300 2059 Gabapentin 300 MG BEDTIME 05/19 2099 AC 05/25 PO 06/19 1300 2022 Metoprolol Tartrate 25 MG BID 05/19 2099 AC PO 06/19 1300 0830 Trazodone HCl 150 MG BEDTIME 05/19 2099 AC 05/12 4 PO 06/19 1300 2021 Zolpidem Tartrate 5 MG BEDTIME PRN PRN 05/19 20 00 AC 05/25 PO 06/19 1300 2027 Diagnosis, Assessment Plan Free Text A P: [...] [ ] Case Management at 2111 RPT #:[id number] END OF REPORT 2020-05-26 14:57:00-00:00 HC[facility] Internal Medicine Prog. Note REPORT#:[id number] REPORT STATUS: Signed DATE:05/26/20 TIME: 1457 PATIENT: DARIEN GROSSMAN UNIT #: [id number] ROOM/BED: [place] [address] : 45 AGE: 74 SEX: M ATTEND: Rosa Curtis MD ADM AUTHOR: Javier Meek NP * ALL edits or amendments must be made on the [employer] document * Subjective Chief Complaint: Right AKA [...] bowel sounds, soft Extremities: Extremities: RT AKA Neuro/ELECTRICAL CONTROLS TECHNICIAN: alert, oriented x 3 Skin: dry, normal [...] CT of the right femur without contrast: Ihmrg-jxn-aqdx amputation changes with complex soft tissue fluid [...] of care: -Continue with comprehensive inpatient rehabil[facility] -Pain control -Fall precaution -DVT prophylaxis subcu heparin -GI prophylaxis patient currently on Protonix -Pain control as pain management -Seizure precaution patient on Keppra -Continues present medications -Monitor labs -Plan of care discussed with the patient, galina palma'pierre nurse, and Dr. Cavazos. Electronically Signed by Javier Meek NP on 0 05/28/20 at 1154 RPT #:[id number] END OF REPORT 2020-05-26 14:57:00-00:00 HC[facility]L [facility] Internal Medicine Prog. Note REPORT#:[id number] REPORT STATUS: Signed DATE:05/26/20 TIME: 1456 PATIENT: DARIEN GROSSMAN UNIT #: [id number] ROOM/BED: [place] [address] : 45 AGE: 74 SEX: M ATTEND: Rosa Curtis MD ADM AUTHOR: Javier Meek NP * ALL edits or amendments must be made on the [employer]/computer document * Javier Meek 05/26/20 1457: Subjective [...] Result Date Time Pulse Ox 98 05/26 0648 B/P 130/66 05/26 0648 B/P Mean 87.3 05/26 0648 Temp 37.4 05/26 0648 Pulse 58 05/26 0648 Resp 16 05/26 0648 O2 Delivery Room air 05/24 1937 24 [...] bowel sounds, soft Extremities: Extremities: RT AKA Neuro/ELECTRICAL CONTROLS TECHNICIAN: alert, oriented x 3 Skin: dry, normal [...] CT of the right femur without contrast: Arurn-jrc-aesj amputation changes with complex soft tissue fluid [...] of care: -Continue with comprehensive inpatient rehabil[facility] rehab team -Pain control -Fall precaution -DVT [...] with JOSE Meek. Pertinent labs, Imaging, and skin care consultant evaluations review ed. 74-year-old male was [...] NP on 0 05/28/20 at 1154 RPT #:[id number] END OF REPORT 2020-05-26 14:57:00-00:00 [facility]L [facility] Internal Medicine Prog. Note REPORT#:[id number] REPORT STATUS: Signed DATE:05/26/20 TIME: 1456 PATIENT: DARIEN GROSSMAN UNIT #: [id number] ROOM/BED: [place] [address] : 45 AGE: 74 SEX: M ATTEND: Rosa Curtis MD ADM AUTHOR: Javier Meek NP * ALL edits or amendments must be made on the [employer]/computer document * Javier Meek 05/26/20 1457: Subjective [...] Resp B/P B/P Mean Pulse Ox FiO2 14-05/26 36.4-37.4 58-71 15-18 121-132/66-71 85.8-91.5 96-98 Last Documented: Result Date Time Pulse Ox 98 05/26 0748 B/P 130/66 05/26 0748 B/P Mean 87.3 05/26 0748 Temp 37.4 05/26 0748 Pulse 58 05/26 0748 Resp 16 05/26 0748 O2 Delivery Room air 05/24 1937 24 [...] bowel sounds, soft Extremities: Extremities: RT AKA Neuro/ELECTRICAL CONTROLS TECHNICIAN: alert, oriented x 3 Skin: dry, normal [...] CT of the right femur without contrast: Uzrsg-deo-cxyj amputation changes with complex soft tissue fluid [...] of care: -Continue with comprehensive inpatient rehabil[facility] rehab team -Pain control -Fall precaution -DVT prophylaxis subcu heparin -GI prophylaxis patient currently on Protonix -Pain control as pain management -Seizure precaution patient on Keppra -Continues present medications -Monitor labs -Plan of care discussed with the patient, galina marcano nurse, and Dr. Cavazos. Danny Cavazos 05/28/208: Attestations Physician Attestation Agree w/findings plan: Patient seen and examined on 05/26/2020. I agree with the findings and plan as documented by JOSE Meek. Plan of care coordinat ed with JOSE Meek. Pertinent labs, Imaging, and skin care consultant evaluations review ed. 74-year-old male was [...] MD o n 05/28/20 at 2335 RPT #:[id number] END OF REPORT 2020-05-26 14:38:00-00:00 HC[facility]L [facility] Nephrology Progress Note REPORT#:[id number] REPORT STATUS: Signed DATE:05/26/20 TIME: 1438 PATIENT: DARIEN GROSSMAN UNIT #: [id number] ROOM/BED: [place] [address] : 45 AGE: 74 SEX: M ATTEND: Rosa Curtis MD ADM AUTHOR: Merissa Dillon MD * ALL edits or amendments must be made on the [employer]/computer document * Subjective Chief Complaint: Patient seen [...] been stable. -Psych f/u. at 2347 RPT #:[id number] END OF REPORT 2020-05-26 12:50:00-00:[address] [facility] ([facility]) Pain Management Progress Note REPORT#:[id number] REPORT STATUS: Signed DATE:05/26/20 TIME: 1250 PATIENT: DARIEN GROSSMAN UNIT #: [id number] ROOM/BED: [place] [address] : 45 AGE: 74 SEX: M ATTEND: Rosa Curtis MD ADM AUTHOR: Sohail Wells * ALL edits or amendments must be made on the [employer]/computer document * Subjective Chief complaint: Patient seen and examined. Chart and MAR reviewe d. Patient reports feeling a li ttle [...] all, no edema, pedal pulses, right AKA Neuro/ELECTRICAL CONTROLS TECHNICIAN: no motor deficits, no sensory deficit s, [...] helps with the pain. Patient declined -05/24-decrease [place] 10/325 to [place] 7.5/325 james ry 4 as needed -Lidoderm patch to left thigh daily -[place] 7.5/325 mg oral every 4 hours as [...] Case discussed with Dr Lofton whom agrees. 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: Total Prescriptions 28 Total Private Pay 0 Total Prescribers 4 Total Pharmacies 1 05/06/2020 1 05/06/2020 HYDROCODONE-ACETAMIN 10- 325 MG 30.0 7 CH SPA [id number] [facility] (1602) 0 42.86 MME Comm Ins [place] 04/20/2020 1 12/24/2019 ZOLPIDEM TARTRATE 10 MG TABLET 30.0 30 PE LAT [id number] [facility] (1602) 4 Comm Ins [place] 03/21/2020 1 12/24/2019 ZOLPIDEM TARTRATE 10 MG TABLET 30.0 30 PE LAT [id number] [facility] (1602) 3 Comm Ins [place] 02/20/2020 1 12/24/2019 ZOLPIDEM TARTRATE 10 MG TABLET 30.0 30 PE LAT [id number] [facility] (1602) 2 Comm Ins [place] 01/21/2020 1 12/24/2019 ZOLPIDEM TARTRATE 10 MG TABLET 30.0 30 PE LAT [id number] [facility] (1602) 1 Comm Ins [place] 12/24/2019 1 12/24/2019 ZOLPIDEM TARTRATE 10 MG TABLET 30.0 30 PE LAT [id number] [facility] (1602) 0 Comm Ins [place] 11/25/2019 1 07/07/2019 ZOLPIDEM TARTRATE 10 MG TABLET 30.0 30 PE LAT [id number] [facility] (1602) 5 Comm Ins [facility] (2149) [address] [place] [address] at 1635 [facility] #:[id number] END OF REPORT 2020-05-26 12:50:00-00:00 [facility] ([facility]) Pain Management Progress Note REPORT#:[id number] REPORT STATUS: Signed DATE:05/26/20 TIME: 1250 PATIENT: DARIEN GROSSMAN UNIT #: [id number] ROOM/BED: [place] [address] : 45 AGE: 74 SEX: M ATTEND: Rosa Curtis MD ADM AUTHOR: Sohail Wells * ALL edits or amendments must be made on the [employer] document * Subjective Chief complaint: Patient seen [...] 05/26 1526 O2 Delivery Room air 05/24 1938 24 [...] all, no edema, pedal pulses, right AKA Neuro/ELECTRICAL CONTROLS TECHNICIAN: no motor deficits, no sensory deficit s, [...] helps with the pain. Patient declined -05/24-decrease [place] 10/325 to [place] 7.5/325 james ry 4 as needed -Lidoderm patch to left thigh daily -[place] 7.5/325 mg oral every 4 hours as [...] Case discussed with Dr Lofton whom agrees. 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: Total Prescriptions 28 Total Private Pay 0 Total Prescribers 4 Total Pharmacies 1 05/06/2020 1 05/06/2020 HYDROCODONE-ACETAMIN 10- 325 MG 30.0 7 CH SPA [id number] [facility] (1602) 0 42.86 MME Comm Ins [place] 04/20/2020 1 12/24/2019 ZOLPIDEM TARTRATE 10 MG TABLET 30.0 30 PE LAT [id number] [facility] (1602) 4 Comm Ins [place] 03/21/2020 1 12/24/2019 ZOLPIDEM TARTRATE 10 MG TABLET 30.0 30 PE LAT [id number] [facility] (1602) 3 Comm Ins [place] 02/20/2020 1 12/24/2019 ZOLPIDEM TARTRATE 10 MG TABLET 30.0 30 PE LAT [id number] [facility] (1602) 2 Comm Ins [place] 01/21/2020 1 12/24/2019 ZOLPIDEM TARTRATE 10 MG TABLET 30.0 30 PE LAT [id number] [facility] (1602) 1 Comm Ins [place] 12/24/2019 1 12/24/2019 ZOLPIDEM TARTRATE 10 MG TABLET 30.0 30 PE LAT [id number] [facility] (1602) 0 Comm Ins [place] 11/25/2019 1 07/07/2019 ZOLPIDEM TARTRATE 10 MG TABLET 30.0 30 PE LAT [id number] [facility] (1602) 5 [place] [id number] ([phone]) [address] [place] [address] at 1630 Electronically Signed by Herman Lofton MD on 0 05/26/20 at 0398 RPT #:[id number] END OF REPORT 2020-05-26 09:43:00-00:00 [facility] ([facility]) Clinical Note REPORT#:[id number] REPORT STATUS: Signed DATE:05/26/20 TIME: 942 PATIENT: DARIEN GROSSMAN UNIT #: [id number] ROOM/BED: [place] [address] : 45 AGE: 74 SEX: M ATTEND: Rosa Curtis MD ADM AUTHOR: Jonathan Sheikh NP * ALL edits or amendments must be made on the [employer] document * Clinical Note Note: pt gone from room cont abx x 1 week total if aspirte cx negative Electronically Signed by Jonathan Sheikh CALCINE 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 on at 1251 RPT #:[id number] END OF REPORT 2020-05-26 09:43:00-00:[address] [facility] ([facility]) Clinical Note REPORT#:[id number] REPORT STATUS: Signed DATE:05/26/20 TIME: 942 PATIENT: DARIEN GROSSMAN UNIT #: [id number] ROOM/BED: [place] [address] : 45 AGE: 74 SEX: M ATTEND: Rosa Curtis MD ADM AUTHOR: Jonathan Sheikh NP * ALL edits or amendments must be made on the [employer] document * Clinical Note Note: pt gone from room cont abx x 1 week total if aspirte cx negative Electronically Signed by Jonathan Sheikh NP on at 1251 at 2154 RPT #:[id number] END OF REPORT 2020-05-26 07:45:00-00:00 [facility] ([facility]) Clinical Note REPORT#:[id number] REPORT STATUS: Signed DATE:05/26/20 TIME: 744 PATIENT: DARIEN GROSSMAN UNIT #: [id number] ROOM/BED: [place] [address] : 45 AGE: 74 SEX: M ATTEND: Rosa Curtis MD ADM AUTHOR: Danny Keith MD * ALL edits or amendments must be made on the [employer]/Meu[employer] document * Clinical Note Note: 74-year-old male [...] with rehab care. Wound care evaluation noted an d continue with wound care. 05/26: Right stump pain and phantom pain. Partici fay in rehab. Plan We will continue with telemetry, BP control, gly cemic control, pain control, electrolyte control, DVT/GI prophylaxis, repeat labs. PT/OT/ST. Wound care. Electronically Signed by Danny Keith MD 06/01/20 at 1321 RPT #:[id number] END OF REPORT 2020-05-26 04:28:00-00:00 [facility] Re[facility] Progress Note REPORT#:[id number] REPORT STATUS: Signed DATE:05/26/20 TIME: 427 PATIENT: DARIEN GROSSMAN UNIT #: [id number] ROOM/BED: [place] [address] : 45 AGE: 74 SEX: M ATTEND: Rosa Curtis MD ADM AUTHOR: Sekou Curtis MD * ALL edits or amendments must be made on the [employer]/computer document * Subjective Chief complaint: Rehab follow-up Generalized weakness Patient doing better today Affect is improved Slept well BM+ Denies GUTIÉRREZ/N/V/D 14 systems reviewed and neg. except that above. Patient reports: No: shortness of breath, vomiting, constipation. Nursing reports: No: new events overnight. Objective General VS: Vital Signs: Date Time Temp Pulse Resp B/P B/P Pulse O2 O2 F low FiO2 Mean Ox Delivery Rate 04/14 2325 97.7 59 18 132/71 91.5 97 05/26 [...] PIVOT TRANSFER W/ IND, AMBULATION W/ RW FOR 10 FT, 50 FT W/ 2 TURNS WITH IND, 150 FT W/ SBA DUE TO FATIGUE, 10 FT UNEVEN SURFACE W/ SBA DUE TO UNSTEADINESS. Pt. INSTRUTED ON 1 STEP WITH RW W/ SBA DUE TO UNSTEADINESS. Pt. PERFORMED WCMOBILITY FOR 50 FT W/ 2 TURNS, 150 FT IND. P t. INSTRUCTED ON 1 STEP IN BARS FOR [...] MEMORY, THOUGHT ORGANIZATION, AND INSIGHT. - PT AAOX4. - PT GENERALLY WITH GOOD RECALL OF DAILY ONGOIN GS BUT WITH SOME FORGETFULLNESS. FOR EXAMPLE, HE DID NOT RECALL READING HIS HEWSPAPER ARTICLE TO WAGON DRIVER YESTERDAY. PT ALSO REFERENCED THE WAGON DRIVER HAVING HIM COMPLETE WORD PUZZLE, KRISHNA Alva IT WAS A DIFFERENT WAGON DRIVER. - INITIATED INFORMAL TASKS TARGETING SAME SKILL S HE DEMO DIFFICULTIES WITH DURING MOCA ADMINISTRATION. P T DEMO ATTTENTION AND WORKING MEMORY TO RECALL 3-4 WOR D LISTS WITH MENTAL MANIPULATION WITH 100% ACC. PT DEMO MINE YED RECALL OF 4/4 TARGET WORDS AFTER 5 MIN DELAY WITH DISTRACTION WITH 100% ACC. - PT DEMO ALTERNATING ATTENTION AND WORKING MEM ORY FOR EF TASK OF NAMING FEMALE NAMES [...] SOMETHING HE WOULD EVER DO. INITTIATE PS FO R PT TO ID ADLS WHICH DO REQUIRE PLANNING AND ORGANIZATION . 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 - PT DEMONSTRATED SOME REDUCED SOCIAL AWARENESS DURING SESSION, WAGON DRIVER WAS ATTEMPTING TO END SESSION P T CONTINUED TO TALK. DID NOT ALERT TO NON-VERBAL CUES ( CLINCIAN PUTTING CHAIR UP, MOVING TOWARD EXIT) AND REQUIRED DIRE CT VERBAL CUING 3X TO END SESSION. ST daily note comment: PLEASANT AND COOPERATIVE FOR THERAPY SESSION HOWEVER REFUSING TO DO CERTAIN TASKS. PT REPORTING THAT HIS MOOD IS IMPROVED SINCE STARTED ON ZOLOFT. AT SESSION CL OSE PT IN WHEELCHAIR WITH ALARM ENGAGED. PLAN: [...] MMT moves all against gravity. BUE 4/5, CLOTH BOOKER GOOD, RHF 3+/5, LLE 4/5. L calf NT, No cords. TTP L lateral thigh above trochanter bursae. Neuro/ELECTRICAL CONTROLS TECHNICIAN: alert, oriented X 3, CNII-XII intact, normal [...] % (Auto) (14.0 - 32.0 %) 18.0 Rutherford % (Auto) (4.8 - 9.0 %) 10.5 H Eos % (Auto) (0.3 - 3.7 %) 8.8 H Baso % (Auto) (0.0 - 2.0 %) 0.8 Neut # (Auto) (2.0 - 7.6 x10 3/uL) 5.13 Lymph # (Auto) (1.0 - 3.8 x10 3/uL) 1.51 Rutherford # (Auto) (0.1 - 0.8 x10 3/uL) [...] D.O. Objective Comments Objective comments: Microbiology: 05/24 1522 ASPIRATE: Body Fluid Culture [...] greater trochanteric bursitis-possible injection as per pain medical staff services manager-continue [place] and gabapentin -Left thigh pain, lateral femoral [...] total of 7 days-to be completed to efrani 05/21-completed -Continue right AKA incisional dressing care-wou nds looking better -Prosthetic company consulted for evaluation -Continue aspirin and Plavix-Lasix -History of depression/anxie ty continue Carlyn Dixon Effexor-probation officer bring in patient's home Pristiq -Monitor hemoglobin [...] UNK Complete PT FUNCTIONAL TRN 15 MIN 04/15 UNK Complete OT FUNCTIONAL TRN 15 MIN 05/26 UNK Complete OT EXERCISE 15MIN 05/26 UNK Complete OT ADL 05/26 UNK Complete Plan discussed with: patient, nurse, interdisc c are team Rehab attestation: Face to face exam completed. Treatment plan disc ussed with patient. Meets continued stay criteria. Agree with interdiscipl inary treatment plan. Patient seen and examined by me personally. at 1625 RPT #:[id number] END OF REPORT 2020-05-25 23:36:00-00:00 [facility] REPORT#:[id number] REPORT STATUS: Signed DATE:05/25/20 TIME: 2335 PATIENT: DARIEN GROSSMAN UNIT #: [id number] ROOM/BED: [place] [address] : 45 AGE: 74 SEX: M ATTEND: Rosa Curtis MD ADM AUTHOR: Javier Meek CALCINE 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 * ALL edits or amendments must be made on the [employer]/computer document * Subjective Chief Complaint: Right AKA [...] (14.0 - 32.0 %) 18.0 7.0 L Rutherford % (Auto) (4.8 - 9.0 %) 10.5 H 7.2 Eos % (Auto) (0.3 - 3.7 %) 8.8 H 5.9 H Baso % (Auto) (0.0 - 2.0 %) 0.8 0.4 Neut # (Auto) (2.0 - 7.6 x10 3/uL) 5.13 7.67 H Lymph # (Auto) (1.0 - 3.8 x10 3/uL) 1.51 0.68 L Rutherford # (Auto) (0.1 - 0.8 x10 3/uL) [...] busPIRone (BUSPAR) 10 MG PO BEDTIME 05/13/20 0 05/19/20 Strength: 10 MG TAB 1443 2255 HYDROcodone/APAP 1 TAB PO 05/13/20 05/19/20 (NORCO 10/325) Q6H PRN PRN PAIN 1443 2255 Strength: 10 MG-325 MG TAB ZOLPIDEM (AMBIEN) 10 MG PO 05/13/20 05/19/20 Strength: 10 MG TAB BEDTIME PRN 1444 2255 INSOMNIA GABAPENTIN (NEURONTIN) 300 MG PO BEDTIME 05/1305/19/20 Strength: 300 MG CAP 1445 2255 DESVENLAFAXINE ER 25 MG PO DAILY 05/13/2005/19 (PRISTIQ) 1446 225 Strength: 50 MG TAB.SR.24H traZODone (DESYREL) 150 MG PO BEDTIME 05/13/20 05/19/20 Strength: 150 MG TAB 1446 2255 FUROSEMIDE (LASIX) 40 MG PO DAILY 05/13/2010/01 Strength: 40 MG TAB 1447 2255 METOPROLOL TARTRATE 25 MG PO BID 05/13/2005/19 (LOPRESSOR) 1448 225 Strength: 25 MG TAB levETIRAcetam (KEPPRA) 500 [...] BID 05/19 2099 AC (LOPRESSOR) PO 06/19 Central Nervous System Agents Sig/Tatum Start time [...] 05/25 (Effexor XR 37.5 mg) PO 06/19 1299 08 Acetaminophen 650 MG Q6H PRN PRN 05/21 0745 AC (TYLENOL) PO 06/20 843 Gabapentin 300 [...] Sod/ 3.375 GM Q12H 05/23 1300 AC 05/25 Tazobactam Sod IV 05/30 1259 1806 [...] 06/19 1300 2028 Epoetin Donny-epbx 4,000 UNIT TuThSa@2100 05/19 2099 AC 05/24 SUBQ 06/19 1300 205 Gabapentin 300 MG BEDTIME 05/19 2099 AC 05/25 PO 06/19 1300 202 Metoprolol Tartrate 25 MG BID 05/19 2099 AC PO 06/19 1300 202 Trazodone HCl 150 MG BEDTIME 05/19 2100 AC 05/12 4 PO 06/19 1300 2021 Zolpidem Tartrate 5 [...] 05/25 2325 O2 Delivery Room air 05/24 1937 24 [...] bowel sounds, soft Extremities: Extremities: RT AKA Neuro/ELECTRICAL CONTROLS TECHNICIAN: alert, oriented x 3 Skin: dry, normal [...] CT of the right femur without contrast: Ksunn-hay-hfnn amputation changes with complex soft tissue fluid [...] of care: -Continue with comprehensive inpatient rehabil[facility] re[facility] team -Pain control -Fall precaution -DVT prophylaxis subcu heparin -GI prophylaxis patient currently on Protonix -Pain control as pain management -Seizure precaution patient on Keppra -Continues present medications -Monitor labs -Plan of care discussed with the patient, galina marcano nurse, and Dr. Cavazos. Electronically Signed by Javier Meek NP on 0 05/27/20 at 0955 RPT #:[id number] END OF REPORT 2020-05-25 23:36:00-00:00 [facility]) Internal Medicine Prog. Note REPORT#:[id number] REPORT STATUS: Signed DATE:05/25/20 TIME: 2335 PATIENT: DARIEN GROSSMAN UNIT #: [id number] ROOM[facility]BED: [facility] : 45 AGE: 74 SEX: M ATTEND: Rosa Curtis MD ADM AUTHOR: Javier Meek CALCINE 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 * ALL edits or amendments must be made on the [employer]/computer document * Javier Meek 05/25/20 2336: Subjective [...] (14.0 - 32.0 %) 18.0 7.0 L Rutherford % (Auto) (4.8 - 9.0 %) 10.5 H 7.2 Eos % (Auto) (0.3 - 3.7 %) 8.8 H 5.9 H Baso % (Auto) (0.0 - 2.0 %) 0.8 0.4 Neut # (Auto) (2.0 - 7.6 x10 3/uL) 5.13 7.67 H Lymph # (Auto) (1.0 - 3.8 x10 3/uL) 1.51 0.68 L Rutherford # (Auto) (0.1 - 0.8 x10 3/uL) [...] Q12HR 10 05/1405/19/20 Strength: 500 MG TAB 4233 4463 Current Hospital Medications: Anti-Infective Agents Sig/Tatum Start [...] 75 MG DAILY 05/20 899 AC 05/25 (Plavix) PO 06/19 1300 0828 [...] 05/19 2099 AC (LOPRESSOR) PO 06/19 1300 202 Central Nervous System Agents Sig/Tatum Start time Last Medication Dose Route Stop Time Status Admin Hydrocodone Bitart/ 1 TAB Q4H PRN PRN 05/24 14 15 AC 05/25 Acetaminophen PO 06/10 1200 1823 (NORCO 7.5/325 TABLET) Sertraline HCl 25 MG BEDTIME 05/23 2099 AC (ZOLOFT) PO 06/22 Amitriptyline HCl 10 MG BEDTIME 05/20 2100 AC 0 05/25 (ELAVIL) PO 06/19 Aspirin 81 MG DAILY 05/20 899 AC 05/25 (ASPIRIN) PO 06/19 1300 0828 Venlafaxine HCl 75 MG DAILY 05/20 899 AC 05/25 (Effexor XR 37.5 mg) PO 06/19 1300 0828 Acetaminophen 650 MG Q6H PRN PRN 05/20 0845 AC (TYLENOL) PO 06/20 843 Gabapentin 300 MG BEDTIME 05/19 2099 AC 05/25 (NEURONTIN) PO 06/19 1300 202 Trazodone HCl 150 MG BEDTIME 05/19 2099 AC 05/12 (DESYREL) PO 06/19 1300 202 Zolpidem Tartrate 5 MG BEDTIME PRN PRN 05/19 20 00 AC 05/25 (AMBIEN) PO 06/19 1300 202 Electrolytic, Caloric, And Nadia Sig/Tatum Start time Last Medication Dose Route Stop Time Status Admin Mannitol 12.5 GM ASDIR PRN 05/23 141 AC (MANNITOL 25% 12.5GM/ IV 06/23 1413 50ML) Sodium Chloride 2,000 ML ASDIR PRN 05/23 1415 A C 05/25 (SODIUM CHLORIDE IV 06/23 1413 1423 0.9%) Sodium Chloride 10 ML ASDIR PRN 05/23 1415 AC 05/25 (SODIUM CHLORIDE) IV 06/22 1414 1424 [...] AC 05/25 (SANTYL 2GM TOPICAL) TOPICAL 06/21 858 0829 Vital Signs: Date Time Temp Pulse Resp B/P B/P Pulse O2 O2 F low FiO2 Mean Ox Delivery Rate 05/255 36.5 [...] APPLIC DAILY 05/22 899 AC 05/25 TOPICAL 06/22 0759 0829 Lidocaine 1 PATCH DAILY 05/21 899 AC 05/25 TOPICAL 06/21 0759 0828 Amitriptyline HCl 10 MG BEDTIME 05/20 2100 AC 0 05/25 PO 06/19 Triamcinolone 40 [...] 0828 Acetaminophen 650 MG Q6H PRN PRN 05/21 0745 AC PO 06/19 0844 Hydralazine HCl 10 MG Q6H PRN PRN 05/20 844 AC PO 06/20 0744 Ondansetron HCl 4 MG TID PRN PRN 05/20 844 AC SL 06/20 0744 Heparin Sodium 5,000 UNIT Q8H 05/19 2199 AC SUBQ 06/19 1300 202 Epoetin Donny-epbx 4,000 UNIT [...] Mean 91.5 05/25 2324 Temp 36.5 05/25 232 Pulse 59 05/25 2325 Resp 18 05/25 232 O2 Delivery Room air 05/24 1937 24 [...] bowel sounds, soft Extremities: Extremities: RT AKA Neuro/ELECTRICAL CONTROLS TECHNICIAN: alert, oriented x 3 Skin: dry, normal [...] CT of the right femur without contrast: Gvcdh-rom-norl amputation changes with complex soft tissue fluid [...] of care: -Continue with comprehensive inpatient rehabil[facility] rehab team -Pain control -Fall precaution -DVT prophylaxis subcu heparin -GI prophylaxis patient currently on Protonix -Pain control as pain management -Seizure precaution patient on Keppra -Continues present medications -Monitor labs -Plan of care discussed with the patient, galina marcano nurse, and Dr. Cavazos. Danny Cavazos 05/27/20 2203: Attestations Physician Attestation Agree w/findings plan: Patient seen and examined on 05/25/2020. I agree with the findings and plan as documented by JOSE Meek. Plan of care coordinat ed with JOSE Meek. Pertinent labs, Imaging, and skin care consultant evaluations review ed. 74-year-old male was [...] NP on 0 05/27/20 at 0955 RPT #:[id number] END OF REPORT 2020-05-25 23:36:00-00:[address] [facility] ([facility]) Internal Medicine Prog. Note REPORT#:[id number] REPORT STATUS: Signed DATE:05/25/20 TIME: 2335 PATIENT: DARIEN GROSSMAN UNIT #: [id number] ROOM/BED: [place] [address] : 45 AGE: 74 SEX: M ATTEND: Rosa Curtis MD ADM AUTHOR: Javier Meek CALCINE 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 * ALL edits or amendments must be made on the [employer]/computer document * Javier Meek 05/25/20 2336: Subjective [...] (14.0 - 32.0 %) 18.0 7.0 L Rutherford % (Auto) (4.8 - 9.0 %) 10.5 H 7.2 Eos % (Auto) (0.3 - 3.7 %) 8.8 H 5.9 H Baso % (Auto) (0.0 - 2.0 %) 0.8 0.4 Neut # (Auto) (2.0 - 7.6 x10 3/uL) 5.13 7.67 H Lymph # (Auto) (1.0 - 3.8 x10 3/uL) 1.51 0.68 L Rutherford # (Auto) (0.1 - 0.8 x10 3/uL) [...] 10 05/1405/19/20 Strength: 500 MG TAB 1333 5785 Current Hospital Medications: Anti-Infective Agents Sig/Tatum Start [...] 75 MG DAILY 05/20 899 A C 05/25 (Plavix) PO 06/19 1300 0828 Heparin Sodium 5,000 UNIT Q8H 05/19 2200 AC (HEPARIN 5000 UNITS/ SUBQ 06/19 1300 2028 ML) Epoetin Donny-epbx 4,000 UNIT TuThSa@2100 05/19 2100 AC 05/24 (RETACRIT) SUBQ 06/19 1300 2058 Cardiovascular Drugs Sig/Tatum Start time Last Medication Dose Route Stop Time Status Admin Lidocaine HCl 0.5 ML ASDIR PRN 05/23 1415 CKD (LIDOCAINE HCL/PF) I-DERMAL 06/23 141 Hydralazine HCl 10 MG Q6H PRN PRN 05/20 0845 AC (APRESOLINE) PO 06/19 0844 Metoprolol Tartrate 25 MG BID 05/19 2100 AC (LOPRESSOR) PO 06/19 1300 202 Central Nervous System Agents Sig/Tatum Start time Last Medication Dose Route Stop Time Status Admin Hydrocodone Bitart/ 1 TAB Q4H PRN PRN 05/24 141 5 AC 05/25 Acetaminophen PO 06/10 1200 1823 (NORCO 7.5/325 TABLET) Sertraline HCl 25 MG BEDTIME 05/23 2100 AC 05/12 4 (ZOLOFT) PO 06/22 Amitriptyline HCl 10 MG BEDTIME 05/20 2100 AC 0 05/25 (ELAVIL) PO 06/19 Aspirin 81 MG DAILY 05/20 899 AC 05/25 (ASPIRIN) PO 06/19 1300 0828 Venlafaxine HCl 75 MG DAILY 05/20 899 AC 05/12 4 (Effexor XR 37.5 mg) PO 06/19 1300 [...] MG TID PRN PRN 05/21 0745 AC (ZOFRAN ODT) SL 06/20 0744 Local Anesthetics (Parenteral) Sig/Tatum Start time Last [...] 10 MG BEDTIME 05/20 2100 AC 0 05/25 PO 06/19 Triamcinolone 40 [...] PRN PRN 05/20 844 AC PO 06/19 08 Hydralazine HCl 10 MG Q6H PRN PRN 05/20 844 AC PO 06/19 0844 Ondansetron HCl 4 MG TID PRN PRN 05/20 844 AC SL 06/20 843 Heparin Sodium 5,000 UNIT Q8H 05/19 2199 AC SUBQ 06/19 1300 2027 Epoetin Donny-epbx 4,000 UNIT TuThSa@2100 05/19 2099 AC 05/24 SUBQ 06/19 1300 2058 Gabapentin 300 MG BEDTIME 05/19 2099 AC [...] Temp 36.5 05/25 2324 Pulse 59 05/25 2325 Resp 18 05/25 232 O2 Delivery Room air 05/24 1937 24 [...] bowel sounds, soft Extremities: Extremities: RT AKA Neuro/ELECTRICAL CONTROLS TECHNICIAN: alert, oriented x 3 Skin: dry, normal [...] CT of the right femur without contrast: Dlxhl-gwv-dhix amputation changes with complex soft tissue fluid [...] of care: -Continue with comprehensive inpatient rehabilit [facility] rehab team -Pain control -Fall precaution -DVT prophylaxis subcu heparin -GI prophylaxis patient currently on Protonix -Pain control as pain management -Seizure precaution patient on Keppra -Continues present medications -Monitor labs -Plan of care discussed with the patient, galina marcano nurse, and Dr. Cavazos. Danny Cavazos 05/27/20 2203: Attestations Physician Attestation Agree w/findings plan: Patient seen and examined on 05/25/2020. I agree with the findings and plan as documented by JOSE Meek. Plan of care coordinat ed with JOSE Meek. Pertinent labs, Imaging, and skin care consultant evaluations review ed. 74-year-old male was [...] to monitor his labs. We will myriam pola to monitor H H. Electronically Signed by Javier Meek NP on 0 05/27/20 at 0955 Electronically Signed by Danny Keith MD 05/28/20 at 0014 RPT #:[id number] END OF REPORT 2020-05-25 12:45:00-00:[address] [facility] ([facility] Nephrology Progress Note REPORT#:[id number] REPORT STATUS: Signed DATE:05/25/20 TIME: 1245 PATIENT: DARIEN GROSSMAN UNIT #: [id number] ROOM/BED: [place] [address] : 45 AGE: 74 SEX: M ATTEND: Rosa Curtis MD ADM AUTHOR: Merissa Dillon MD * ALL edits or amendments must be made on the el [employer]/computer document * Subjective Chief Complaint: Patient seen and examined. N o new complaints. s/p US guided aspiration of Rt AKA stump yesterday Objective General VS/I O: Vital Signs: Date Time Temp Pulse Resp B/P B/P Pulse O2 O2 Flow FiO2 Mean Ox Delivery Rate 05/25 2324 [...] % (Auto) (14.0 - 32.0 %) 18.0 Rutherford % (Auto) (4.8 - 9.0 %) 10.5 H Eos % (Auto) (0.3 - 3.7 %) 8.8 H Baso % (Auto) (0.0 - 2.0 %) 0.8 Neut # (Auto) (2.0 - 7.6 x10 3/uL) 5.13 Lymph # (Auto) (1.0 - 3.8 x10 3/uL) 1.51 Rutherford # (Auto) (0.1 - 0.8 x10 3/uL) [...] been stable. -Psych f/u. at 0021 RPT #:[id number] END OF REPORT 2020-05-25 10:28:00-00:[address] [facility] ([facility]) Pain Management Progress Note REPORT#:[id number] REPORT STATUS: Signed DATE:05/25/20 TIME: 1028 PATIENT: DARIEN GROSSMAN UNIT #: [id number] ROOM/BED: [place] [address] : 45 AGE: 74 SEX: M ATTEND: Rosa Curtis MD ADM AUTHOR: Sohail Wells * ALL edits or amendments must be made on the el [employer]/computer document * Subjective Chief complaint: Patient seen [...] Mean Pulse Ox FiO 2 05/24 36.9-37.2 68-70 16-18 130-136/69-71 89.3- 92.8 [...] all, no edema, pedal pulses, right AKA Neuro/ELECTRICAL CONTROLS TECHNICIAN: no motor deficits, no sensory deficit s, [...] % (Auto) (14.0 - 32.0 %) 18.0 Rutherford % (Auto) (4.8 - 9.0 %) 10.5 H Eos % (Auto) (0.3 - 3.7 %) 8.8 H Baso % (Auto) (0.0 - 2.0 %) 0.8 Neut # (Auto) (2.0 - 7.6 x10 3/uL) 5.13 Lymph # (Auto) (1.0 - 3.8 x10 3/uL) 1.51 Rutherford # (Auto) (0.1 - 0.8 x10 3/uL) [...] Microbiology: Date/Time Procedure - Status Source Growth 04/13 152 Body Fluid Culture - ORD ASPIRATE [...] helps with the pain. Patient declined -05/24-decrease [place] 10/325 to [place] 7.5/325 james ry 4 as needed -Lidoderm patch to left thigh daily -[place] 7.5/325 mg oral every 4 hours as [...] Case discussed with Dr Lofton whom agrees. 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: Total Prescriptions 28 Total Private Pay 0 Total Prescribers 4 Total Pharmacies 1 05/06/2020 1 05/06/2020 HYDROCODONE-ACETAMIN 10- 325 MG 30.0 7 [facility] SPA [id number] [facility] (1602) 0 42.86 MME Comm Ins [place] 04/20/2020 1 12/24/2019 ZOLPIDEM TARTRATE 10 MG TABLET 30.0 30 PE LAT [id number] [facility] (1602) 4 Comm Ins [place] 03/21/2020 1 12/24/2019 ZOLPIDEM TARTRATE 10 MG TABLET 30.0 30 PE LAT [id number] [facility] (1602) 3 Comm Ins [place] 02/20/2020 1 12/24/2019 ZOLPIDEM TARTRATE 10 MG TABLET 30.0 30 PE LAT [id number] [facility] (1602) 2 Comm Ins [place] 01/21/2020 1 12/24/2019 ZOLPIDEM TARTRATE 10 MG TABLET 30.0 30 PE LAT [id number] [facility] (1602) 1 Comm Ins [place] 12/24/2019 1 12/24/2019 ZOLPIDEM TARTRATE 10 MG TABLET 30.0 30 PE LAT [id number] [facility] (1602) 0 Comm Ins [place] 11/25/2019 1 07/07/2019 ZOLPIDEM TARTRATE 10 MG TABLET 30.0 30 PE LAT [id number] [facility] (1602) 5 Comm Ins [place] [id number] ([id number]) [address] [place] [address] at [facility] RPT #:[id number] END OF REPORT 2020-05-25 10:28:00-00:00 [facility] ([facility]) Pain Management Progress Note REPORT#:[id number] REPORT STATUS: Signed DATE:05/25/20 TIME: 1028 PATIENT: DARIEN GROSSMAN UNIT #: [id number] ROOM/BED: [place] [address] : 45 AGE: 74 SEX: M ATTEND: Rosa Curtis MD ADM AUTHOR: Sohail Wells * ALL edits or amendments must be made on the [employer] document * Subjective Chief complaint: Patient seen [...] all, no edema, pedal pulses, right AKA Neuro/ELECTRICAL CONTROLS TECHNICIAN: no motor deficits, no sensory deficit s, [...] % (Auto) (14.0 - 32.0 %) 18.0 Rutherford % (Auto) (4.8 - 9.0 %) 10.5 H Eos % (Auto) (0.3 - 3.7 %) 8.8 H Baso % (Auto) (0.0 - 2.0 %) 0.8 Neut # (Auto) (2.0 - 7.6 x10 3/uL) 5.13 Lymph # (Auto) (1.0 - 3.8 x10 3/uL) 1.51 Rutherford # (Auto) (0.1 - 0.8 x10 3/uL) [...] helps with the pain. Patient declined -05/24-decrease [place] 10/325 to [place] 7.5/325 james ry 4 as needed -Lidoderm patch to left thigh daily -[place] 7.5/325 mg oral every 4 hours as [...] Case discussed with Dr Lofton whom agrees. 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: Total Prescriptions 28 Total Private Pay 0 Total Prescribers 4 Total Pharmacies 1 05/06/2020 1 05/06/2020 HYDROCODONE-ACETAMIN 10- 325 MG 30.0 7 CH SPA [id number] [facility] (1602) 0 42.86 MME Comm Ins [place] 04/20/2020 1 12/24/2019 ZOLPIDEM TARTRATE 10 MG TABLET 30.0 30 PE LAT [id number] [facility] (1602) 4 Comm Ins [place] 03/21/2020 1 12/24/2019 ZOLPIDEM TARTRATE 10 MG TABLET 30.0 30 PE LAT [id number] [facility] (1602) 3 Comm Ins [place] 02/20/2020 1 12/24/2019 ZOLPIDEM TARTRATE 10 MG TABLET 30.0 30 PE LAT [id number] [facility] (1602) 2 Comm Ins [place] 01/21/2020 1 12/24/2019 ZOLPIDEM TARTRATE 10 MG TABLET 30.0 30 PE LAT [id number] [facility] (1602) 1 [place] Ins [place] 12/24/2019 1 12/24/2019 ZOLPIDEM TARTRATE 10 MG TABLET 30.0 30 PE LAT [id number] [facility] (1602) 0 [place] 11/25/2019 1 07/07/2019 ZOLPIDEM TARTRATE 10 MG TABLET 30.0 30 PE LAT [id number] [facility] (1602) 5 [employer] [place] [facility] (1602) [address] [place] [address] at 1236 Electronically Signed by Herman Lofton MD on 0 05/26/20 at 3260 RPT #:[id number] END OF REPORT 2020-05-25 10:21:00-00:00 [facility] ([facility] Infectious Dis. Progress Note REPORT#:[id number] REPORT STATUS: Signed DATE:05/25/20 TIME: 1021 PATIENT: DARIEN GROSSMAN UNIT #: [id number] ROOM/BED: [place] [address] : 45 AGE: 74 SEX: M ATTEND: Rosa Curtis MD ADM AUTHOR: Jonathan Sheikh 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 * ALL edits or amendments must be made on the [employer]/computer document * Subjective Chief Complaint: F/U Right AKA cellulitis HPI: Patient is a 74-year-old male with past medical history of end-stage renal disease on HD, hypertension, hyperlipide liseth who underwent right mqpkj-[id number]-ycen amputation in March 2020. He was admitted to [facility] after sustaining a fall resulting in a [...] 1937 Pulse 68 05/24 1937 Resp 16 04/13 1938 Vital Signs Date Temp Pulse Resp [...] symmetric expansion Abdomen: non-tender, normal bowel sounds Neuro/ELECTRICAL CONTROLS TECHNICIAN: alert, oriented X 3 Results Findings/Data: Laboratory [...] % (Auto) (14.0 - 32.0 %) 18.0 Rutherford % (Auto) (4.8 - 9.0 %) 10.5 H Eos % (Auto) (0.3 - 3.7 %) 8.8 H Baso % (Auto) (0.0 - 2.0 %) 0.8 Neut # (Auto) (2.0 - 7.6 x10 3/uL) 5.13 Lymph # (Auto) (1.0 - 3.8 x10 3/uL) 1.51 Rutherford # (Auto) (0.1 - 0.8 x10 3/uL) [...] Co NS --ESR/CRP significant elevated --CT (+) [id number] loculated f luid collection; S/P diagnostic aspiration by IR , GS (-), CX (-) 2. S/P Mechanical fall with SDH 3. ESRD on HD 4. HTN 5. HLD On Zosyn started 05/23 (Day 2) Plan discussed with: patient, nurse Electronically Signed by Jonathan Sheikh NP on at 1732 RPT #:[id number] END OF REPORT 2020-05-25 10:21:00-00:00 [facility] Infectious Dis. Progress Note REPORT#:[id number] REPORT STATUS: Signed DATE:05/25/20 TIME: 1021 PATIENT: DARIEN GROSSMAN UNIT #: [id number] ROOM/BED: [facility] : 45 AGE: 74 SEX: M ATTEND: Rosa Curtis MD ADM AUTHOR: Jonathan Sheikh NP * ALL edits or amendments must be made on the ShareGrove/computer document * Subjective Chief Complaint: F/U Right AKA cellulitis HPI: Patient is a 74-year-old male with past medical history of end-stage renal disease on HD, hypertension, hyperlipide liseth who underwent right gnbup-wjg-tlvz amputation in March 2020. He was admitted to [facility] after sustaining a fall resulting in a [...] symmetric expansion Abdomen: non-tender, normal bowel sounds Neuro/ELECTRICAL CONTROLS TECHNICIAN: alert, oriented X 3 Results Findings/Data: Laboratory [...] % (Auto) (14.0 - 32.0 %) 18.0 Rutherford % (Auto) (4.8 - 9.0 %) 10.5 H Eos % (Auto) (0.3 - 3.7 %) 8.8 H Baso % (Auto) (0.0 - 2.0 %) 0.8 Neut # (Auto) (2.0 - 7.6 x10 3/uL) 5.13 Lymph # (Auto) (1.0 - 3.8 x10 3/uL) 1.51 Rutherford # (Auto) (0.1 - 0.8 x10 3/uL) [...] Co NS --ESR/CRP significant elevated --CT (+) [id number] loculated f luid collection; S/P diagnostic aspiration by IR , GS (-), CX (-) 2. S/P Mechanical fall with SDH 3. ESRD on HD 4. HTN 5. HLD On Zosyn started 05/23 (Day 2) Plan discussed with: patient, nurse Electronically Signed by Jonathan Sheikh CALCINE 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 on at 1732 at 2151 RPT #:[id number] END OF REPORT 2020-05-25 10:19:00-00:00 [facility] ([facility]) Wound Care Progress Note REPORT#:[id number] REPORT STATUS: Signed DATE:05/25/20 TIME: 1019 PATIENT: DARIEN GROSSMAN UNIT #: [id number] ROOM/BED: [place] [address] : 45 AGE: 74 SEX: M ATTEND: Rosa Curtis MD ADM AUTHOR: Shaila Gilbert * ALL edits or amendments must be made on the ShareGro[employer]/computer document * Subjective Chief Complaint: FU R [...] ordering and monitor fo od intake 3. [place] food preferences within diet and encourage oral intake >75% Dietitian name: Haley Shannon, [employer] Assessment completed: 05/20/20 Provider comments on imported [...] % (Auto) (14.0 - 32.0 %) 18.0 Rutherford % (Auto) (4.8 - 9.0 %) 10.5 H Eos % (Auto) (0.3 - 3.7 %) 8.8 H Baso % (Auto) (0.0 - 2.0 %) 0.8 Neut # (Auto) (2.0 - 7.6 x10 3/uL) 5.13 Lymph # (Auto) (1.0 - 3.8 x10 3/uL) 1.51 Rutherford # (Auto) (0.1 - 0.8 x10 3/uL) [...] Report Impression - Status: SIGNED Entered: 05/24/2020 1395 IMPRESSION: 1. Technically successful ultrasound-guided aspi ration [...] [ ] Case Management at 2101 RPT #:[id number] END OF REPORT 2020-05-25 07:58:00-00:00 [facility] ([facility]) Clinical Note REPORT#:[id number] REPORT STATUS: Signed DATE:05/25/20 TIME: 0758 PATIENT: DARIEN GROSSMAN UNIT #: [id number] ROOM/BED: [place] [address] : 45 AGE: 74 SEX: M ATTEND: Rosa Curtis MD ADM AUTHOR: Danny Keith MD * ALL edits or amendments must be made on the ShareGrove/computer document * Clinical Note Note: 74-year-old male [...] Danny Keith MD 06/01/20 at 1318 RPT #:[id number] END OF REPORT 2020-05-25 06:14:00-00:00 [facility] ([facility] Rehab Progress Note REPORT#:[id number] REPORT STATUS: Signed DATE:05/25/20 TIME: 613 PATIENT: DARIEN GROSSMAN UNIT #: [id number] ROOM/BED: [place] [address] : 45 AGE: 74 SEX: M ATTEND: Rosa Curtis MD ADM AUTHOR: Clint Dunaway * ALL edits or amendments must be made on the ShareGro[employer]/computer document * Subjective Chief complaint: Rehab follow-up Generalized weakness Better affect today. Still a bit down Slept well Denies GUTIÉRREZ/N/V/D 14 systems reviewed and neg. except that above. Objective General VS: Vital Signs: Date Time Temp Pulse Resp B/P B/P Pulse O2 O2 F low FiO2 Mean Ox Delivery Rate 05/24 1938 98.4 68 16 130/69 89.3 97 Room [...] SUPINE WITH IND, GT TRAINING FOR 100 FT, 200 FT W/ [...] MMT moves all against gravity. BUE 4/5, CLOTH BOOKER GOOD, RHF 3+/5, LLE 4/5. L calf NT, No cords. TTP L lateral thigh above trochanter bursae. Neuro/ELECTRICAL CONTROLS TECHNICIAN: alert, oriented X 3, CNII-XII intact, normal speech, reflexes equal bilat Results Findings/Data: Microbiology: 05/24 152 ASPIRATE: Body Fluid Culture - ORD 05/24 1522 ASPIRATE: Anaerobic Culture - ORD 05/24 1522 ASPIRATE: Gram Stain - ORD 05/24 1146 ASPIRATE: Body Fluid Culture - RES 05/24 1146 ASPIRATE: Anaerobic Culture - RES 05/24 1146 ASPIRATE: Gram Stain - RES Diagnosis, Assessment [...] greater trochanteric bursitis-possible injection as per pain medical staff services manager-continue [place] and gabapentin -Left thigh pain, lateral femoral [...] -History of depression/anxie ty continue BuSpar, Desyrel, Effexor-probation officer bring in patient's home Pristiq -Monitor hemoglobin [...] DME-HAS WC, TT 35 min>50% with tiffanie g with patient about vascular surgery consultation, [...] with interdiscipl inary treatment plan. at 1754 [facility] #:[id number] END OF REPORT 2020-05-24 22:54:00-00:00 [id number] [place] [address] PATIENT NAME: DARIEN GROSSMAN ADMIT DATE: 05/19/20 ACCOUNT NO: [id number] ROOM NO: G.508 AGE: 74 REPORT TYPE: [...] By: Harvey Bowling MD WT: CON:G.PENNIE/[place]/LATHA Conf#: [id number]#: [id number] Authenticated by Harvey Bowling MD On 05/25/2020 03:48:29 PM Electronically Signed by Harvey Bowling MD on at 1548 PATIENT NAME: DARIEN GROSSMAN 2020-05-24 22:33:00-00:00 [facility] Internal Medicine Prog. Note REPORT#:[id number] REPORT STATUS: Signed DATE:05/24/20 TIME: 2232 PATIENT: DARIEN GROSSMAN UNIT #: [id number] ROOM/BED: [place] [address] : 45 AGE: 74 SEX: M ATTEND: Rosa Curtis MD ADM AUTHOR: Javier Meek NP * ALL edits or amendments must be made on the ShareGrove/computer document * Subjective Chief Complaint: Right AKA [...] marked Objective General VS/I O: Laboratory Tests 05/2311 1300 1300 0535 0535 Chemistry Sodium (134 [...] - 32.0 %) 7.0 L 7.6 L Rutherford % (Auto) (4.8 - 9.0 %) 7.2 9.8 H Eos % (Auto) (0.3 - 3.7 %) 5.9 H 6.3 H Baso % (Auto) (0.0 - 2.0 %) 0.4 0.4 Neut # (Auto) (2.0 - 7.6 x10 3/uL) 7.67 H 9.40 H Lymph # (Auto) (1.0 - 3.8 x10 3/uL) 0.68 L 0.95 L Rutherford # (Auto) (0.1 - 0.8 x10 3/uL) [...] 05/19 2099 AC 05/24 SUBQ 06/19 1300 2058 Gabapentin 300 MG BEDTIME 05/19 2099 AC 05/24 PO 06/19 1300 205 Metoprolol Tartrate 25 MG BID 05/19 2099 AC PO 06/19 1300 2100 Trazodone HCl 150 MG BEDTIME 05/19 2099 AC 05/12 3 PO 06/19 1300 2099 Hydrocodone Bitart/ 1 TAB Q4H PRN PRN 05/19 201 5 DC 05/20 Acetaminophen PO 07/20 1300 2244 Zolpidem Tartrate 5 MG BEDTIME PRN PRN 05/19 20 00 AC 05/24 PO 06/19 1300 2058 Recent Impressions-Last 72 Hrs CAT SCAN - [...] bowel sounds, soft Extremities: Extremities: RT AKA Neuro/ELECTRICAL CONTROLS TECHNICIAN: alert, oriented x 3 Skin: dry, normal [...] CT of the right femur without contrast: Efxrq-kcg-qiox amputation changes with complex soft tissue fluid collection at the stump site. There is loss of fatty medullary density at the stump site. Osteomyelit is is not excluded. Correlate with MRI. Continue wound care May 24, 2020 The patient underwent ultrasound-guided aspirati on of superficial fluid collection Plan of care: -Continue with comprehensive inpatient rehabilit [facility] rehab team -Pain control -Fall precaution -DVT prophylaxis subcu heparin -GI prophylaxis patient currently on Protonix -Pain control as pain management -Seizure precaution patient on Keppra -Continues present medications -Monitor labs -Plan of care discussed with the patient, galina palma'pierre nurse, and Dr. Cavazos. Electronically Signed by Gaviota,Gohnesh CALCINE 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 on 0 05/26/20 at 0233 RPT #:[id number] END OF REPORT 2020-05-24 22:33:00-00:00 [facility] Internal Medicine Prog. Note REPORT#:[id number] REPORT STATUS: Signed DATE:05/24/20 TIME: 2232 PATIENT: DARIEN GROSSMAN UNIT #: [id number] ROOM/BED: [place] [address] : 45 AGE: 74 SEX: M ATTEND: Rosa Curtis MD ADM AUTHOR: Javier Meek NP * ALL edits or amendments must be made on the ShareGrove/computer document * Javier Meek 05/24/202232: Subjective Chief [...] L Laboratory Tests 05/23 05/22 05/22 1300 0550 0560 Hematology WBC (4.5 - 11.0 x10 3/uL) [...] - 32.0 %) 7.0 L 7.6 L Rutherford % (Auto) (4.8 - 9.0 %) 7.2 9.8 H Eos % (Auto) (0.3 - 3.7 %) 5.9 H 6.3 H Baso % (Auto) (0.0 - 2.0 %) 0.4 0.4 Neut # (Auto) (2.0 - 7.6 x10 3/uL) 7.67 H 9.40 H Lymph # (Auto) (1.0 - 3.8 x10 3/uL) 0.68 L 0.95 L Rutherford # (Auto) (0.1 - 0.8 x10 3/uL) [...] 1146 ASPIRATE: Anaerobic Culture - RES 05/24 114 ASPIRATE: Gram Stain - RES Vital Signs: Date Time Temp Pulse Resp B/P B/P Pulse O2 O2 Flow FiO2 Mean Ox Delivery Rate 05/24 1938 [...] Sod/ 3.375 GM Q12H 05/23 1300 AC 05/24 Tazobactam Sod IV 05/30 1259 1421 [...] Q8H 05/19 220 AC SUBQ 06/19 1300 2099 Epoetin Donny-epbx 4,000 UNIT TuThSa@2100 05/19 2099 AC 05/24 SUBQ 06/19 Gabapentin 300 MG BEDTIME 05/19 2099 AC 05/24 PO 06/19 1300 2058 Metoprolol Tartrate 25 MG BID 05/19 2099 AC PO 06/19 Trazodone HCl 150 MG BEDTIME 05/19 2099 AC 05/12 3 PO 06/19 1300 2099 Hydrocodone Bitart/ 1 TAB Q4H PRN PRN 05/19 201 5 DC 05/20 Acetaminophen PO 07/20 1300 2244 Zolpidem Tartrate 5 MG BEDTIME PRN PRN 05/19 20 00 AC 05/24 PO 06/19 1300 2058 Recent Impressions-Last 72 Hrs CAT SCAN - [...] bowel sounds, soft Extremities: Extremities: RT AKA Neuro/ELECTRICAL CONTROLS TECHNICIAN: alert, oriented x 3 Skin: dry, normal [...] CT of the right femur without contrast: Hkpdx-kho-vxqv amputation changes with complex soft tissue fluid collection at the stump site. There is loss of fatty medullary density at the stump site. Osteomyelit is is not excluded. Correlate with MRI. Continue wound care May 24, 2020 The patient underwent ultrasound-guided aspirati on of superficial fluid collection Plan of care: -Continue with comprehensive inpatient rehabilit [facility] rehab team -Pain control -Fall precaution -DVT prophylaxis subcu heparin -GI prophylaxis patient currently on Protonix -Pain control as pain management -Seizure precaution patient on Keppra -Continues present medications -Monitor labs -Plan of care discussed with the patient, galina marcano nurse, and Dr. Cavazos. Danny Cavazos 05/26/20 3714: Attestations Physician Attestation Agree w/findings plan: Patient seen and examined on 05/24/2020. I agree with the findings and plan as documented by JOSE Meek. Plan of care coordinat ed with JOSE Meek. Pertinent labs, Imaging, and skin care consultant evaluations review ed. 74-year-old male was [...] his labs. Electronically Signed by Javier Meek CALCINE 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 on 0 05/26/20 at 0233 RPT #:[id number] END OF REPORT 2020-05-24 22:33:00-00:00 [facility] REPORT#:[id number] REPORT STATUS: Signed DATE:05/24/20 TIME: 2232 PATIENT: DARIEN GROSSMAN UNIT #: [id number] ROOM/BED: [place] [address] : 45 AGE: 74 SEX: M ATTEND: Rosa Curtis MD ADM AUTHOR: Javier Meek CALCINE 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 * ALL edits or amendments must be made on the ShareGrove/computer document * Javier Meek 05/24/20 2233: Subjective Chief Complaint: Right AKA Possible depression [...] - 32.0 %) 7.0 L 7.6 L Rutherford % (Auto) (4.8 - 9.0 %) 7.2 9.8 H Eos % (Auto) (0.3 - 3.7 %) 5.9 H 6.3 H Baso % (Auto) (0.0 - 2.0 %) 0.4 0.4 Neut # (Auto) (2.0 - 7.6 x10 3/uL) 7.67 H 9.40 H Lymph # (Auto) (1.0 - 3.8 x10 3/uL) 0.68 L 0.95 L Rutherford # (Auto) (0.1 - 0.8 x10 3/uL) [...] 1522 ASPIRATE: Gram Stain - ORD 05/24 114 ASPIRATE: Body Fluid Culture - RES 05/24 114 ASPIRATE: Anaerobic Culture - RES 05/24 1146 [...] Sod/ 3.375 GM Q12H 05/23 1300 AC 05/24 Tazobactam Sod IV 05/30 1259 1421 [...] 75 MG DAILY 05/20 899 A C 05/24 PO 06/19 1300 0829 Furosemide 40 MG DAILY 05/20 899 AC 05/24 PO 06/19 1300 0826 Polyethylene Glycol 17 GM DAILY 05/20 899 AC 0 05/21 PO 06/19 1300 1016 Senna 1 TAB DAILY 05/20 899 CKD 05/21 PO 06/19 1300 1015 Venlafaxine HCl 75 MG DAILY 05/20 09 AC 05/24 PO 06/19 1300 0826 Acetaminophen [...] bowel sounds, soft Extremities: Extremities: RT AKA 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 There is loss of fatty medullary density at the stump site. Osteomyelit is is not excluded. Correlate with MRI. Continue wound care May 24, 2020 The patient underwent ultrasound-guided aspirati on of superficial fluid collection Plan of care: -Continue with comprehensive inpatient rehabilit [facility] rehab team -Pain control -Fall precaution -DVT [...] with JOSE Meek. Pertinent labs, Imaging, and skin care consultant evaluations review ed. 74-year-old male was [...] NP on 0 05/26/20 at 0233 RPT #:[id number] END OF REPORT 2020-05-24 22:33:00-00:00 [facility] Internal Medicine Prog. Note REPORT#:[id number] REPORT STATUS: Signed DATE:05/24/20 TIME: 2232 PATIENT: DARIEN GROSSMAN UNIT #: [id number] ROOM/BED: [place] [address] : 45 AGE: 74 SEX: M ATTEND: Rosa Curtis MD ADM AUTHOR: Javire Meek CALCINE 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 * ALL edits or amendments must be made on the ShareGrove/computer document * Javier Meek 05/24/202232: Subjective Chief [...] - 32.0 %) 7.0 L 7.6 L Rutherford % (Auto) (4.8 - 9.0 %) 7.2 9.8 H Eos % (Auto) (0.3 - 3.7 %) 5.9 H 6.3 H Baso % (Auto) (0.0 - 2.0 %) 0.4 0.4 Neut # (Auto) (2.0 - 7.6 x10 3/uL) 7.67 H 9.40 H Lymph # (Auto) (1.0 - 3.8 x10 3/uL) 0.68 L 0.95 L [place]utherford # (Auto) (0.1 - 0.8 x10 3/uL) [...] 1146 ASPIRATE: Anaerobic Culture - RES 05/24 114 [...] Sod/ 3.375 GM Q12H 05/23 1300 AC 05/24 Tazobactam Sod IV 05/30 1259 1421 Sodium Chloride 100 ML Collagenase 1 APPLIC DAILY 05/22 899 AC 05/24 TOPICAL 06/21 0859 0827 Lidocaine 1 PATCH DAILY 05/21 09 AC 05/24 TOPICAL 06/20 0859 0827 Amitriptyline [...] as clinically indicated. SL: SG-H Impression By: [email or web address] - Dominic Mena M.D. ULTRASOUND - USG NDL PLACEMENT (Bxg/Asp) 05/24 1 434 Report Impression - Status: SIGNED Entered: 05/24/2020 1515 IMPRESSION: 1. Technically successful ultrasound-guided aspi ration of a right knee stump collection. Impression By: [email or web address] - Paolma Arvizu D.O. Vital Signs Date Temp Pulse [...] bowel sounds, soft Extremities: Extremities: RT AKA Neuro/ELECTRICAL CONTROLS TECHNICIAN: alert, oriented x 3 Skin: dry, normal [...] CT of the right femur without contrast: Kuzwn-agj-imxs amputation changes with complex soft tissue fluid collection at the stump site. There is loss of fatty medullary density at the stump site. Osteomyelit is is not excluded. Correlate with MRI. Continue wound care May 24, 2020 The patient underwent ultrasound-guided aspirati on of superficial fluid collection Plan of care: -Continue with comprehensive inpatient rehabilit [facility] rehab team -Pain control -Fall precaution -DVT prophylaxis subcu heparin -GI prophylaxis patient currently on Protonix -Pain control as pain management -Seizure precaution patient on Keppra -Continues present medications -Monitor labs -Plan of care discussed with the patient, galina palma'pierre nurse, and Dr. Cavazos. Danny Cavazos 05/26/20 2314: Attestations Physician Attestation Agree w/findings plan: Patient seen and examined on 05/24/2020. I agree with the findings and plan as documented by JOSE Meek. Plan of care coordinat ed with JOSE Meek. Pertinent labs, Imaging, and skin care consultant evaluations review ed. 74-year-old male was [...] 0233 Electronically Signed by Danny Keith MD n 05/26/20 at 2339 [facility] #:[id number] END OF REPORT 2020-05-24 21:09:00-00:00 [facility] ([facility]) Wound Care Progress Note REPORT#:[id number] REPORT STATUS: Signed DATE:05/24/20 TIME: 2108 PATIENT: DARIEN GROSSMAN UNIT #: [id number] ROOM/BED: [place] [address] : 45 AGE: 74 SEX: M ATTEND: Rosa Curtis MD ADM AUTHOR: Shaila Gilbert * ALL edits or amendments must be made on the ShareGrove/Meuugame document * Subjective Chief Complaint: FU R [...] ordering and monitor fo od intake 3. [place] food preferences within diet and encourage oral intake >75% Dietitian name: Haley Shannon, [employer] Assessment completed: 05/20/20 Provider comments on imported [...] [ ] Case Management at 2119 RPT #:[id number] END OF REPORT 2020-05-24 15:23:00-00:00 [facility] ([facility]) Brief Op Note REPORT#:[id number] REPORT STATUS: Signed DATE:05/24/20 TIME: 152 PATIENT: DARIEN GROSSMAN UNIT #: [id number] ROOM/BED: [place] [address] : 45 AGE: 74 SEX: M ATTEND: Rosa Curtis MD ADM AUTHOR: Luis Chaves PA-C * ALL edits or amendments must be made on the el [employer]/computer document * Op/Inv Proc Note - Brief Pre-procedure diagnosis: Surgical site fluid collection Post-procedure diagnosis: same as pre procedure dx Procedures performed: ULTRASOUND GUIDED ASPIRATION OF SUPERFICIAL FLUI D COLLECTION Primary Surgeon: Jenny Chaves PA-C Specialty Food Products Supervisor(s): none Anesthesia: local anesthesia Findings: The risks and benefits of lee perficial fluid collection aspiration were discussed with the patient and consent was granted . The risk of bleeding, infection, and injury to surrounding structures was discussed. The patient s questions regarding the procedure were answered. Darron vallejo Specialty Food Products Supervisor directly supervised by Sriram Arvizu DO for [...] PA-C on 0 05/24/20 at 1526 RPT #:[id number] END OF REPORT 2020-05-24 15:15:00-00:00 [facility] ([facility]) Rehab Team Conference REPORT#:[id number] REPORT STATUS: Signed DATE:05/24/20 TIME: 1515 PATIENT: DARIEN GROSSMAN UNIT #: [id number] ROOM/BED: [place] [address] : 45 AGE: 74 SEX: M ATTEND: Rosa Curtis MD ADM AUTHOR: Sekou Curtis MD * ALL edits or amendments must be made on the [employer]/computer document * Rehabilitation Team Conference Weekly Team Conference Team conf information: Date of conference: 05/24/20 Conference type: Initial Conference scribe: ADONAY Mendes INTERDISCIPLINARY TEAM MEETING PARTICIPANTS: TITLE NAME MD Sekou Curtis MD RN Yesenia Reyes, RN PT Shaila Montalvo, PT OT Celestino Simpson, OT CM/RODRIGO Sierra CM Brooklynn Colbert, WAGON DRIVER [facility] ADONAY Mendes Staff (8) Staff (9) Staff (10) Staff (11) OTHER NAME CREDENTIALS 1 BREANN OLIVERA DIETITIAN 2 3 4 FUNCTIONAL CHANGE: TYPE [...] RRENTLY ON IV ZOSYN. HE GOES TO HE IN [place]. Other discipline update 1: P O INTAKE: [...] applicable Twelve steps discharge goal: Not applicable [place] 150 feet discharge goal: Independent ( 6) [...] FAMILY TRAINING: TO BE SCHDUELD BY THERAPY (DATE): 05/30/20 Expected discharge destination: Home Anticipated services upon di kashifrge: Home health, Occupational therapy, Physical therapy, Speech therapy, Nurses aide, Nursing Anticipated discharge equipment: None Impairment group: brain dysfunction NOTE Document ONLY ONE Impairment Group Brain dysfunction: traumatic, closed injury Etiologic diagnosis: Subdural hematoma/TBI Review of comorbidities: Falls-frequent, ESRD on HD, CAD, Dyslipidemia, HTN, Anemia of chronic disease, Recent Right AKA 04/03, Hyperkalemia, stump pain MD Review/Recommendations Attestation: This interdisciplinary team conference was led siena mcgill and I concur with all decisions made during the team conference and re visions to the individualized overall plan of care. IRF cont stay criteria SEE MY NOTE at 1515 RPT #:[id number] END OF REPORT 2020-05-24 14:42:00-00:00 [facility]) Nephrology Progress Note REPORT#:[id number] REPORT STATUS: Signed DATE:05/24/20 TIME: 1442 PATIENT: DARIEN GROSSMAN UNIT #: [id number] ROOM/BED: [place] [address] : 45 AGE: 74 SEX: M ATTEND: Sekou Curtis MD ADM AUTHOR: Merissa Dillon MD * ALL edits or amendments must be made on the ShareGro[employer]/computer document * Subjective Chief Complaint: Patient out [...] - Paloma Arvizu D.O. Diagnosis, Assessment Plan Hospital course [...] been stable. -Psych f/u. at 2259 RPT #:[id number] END OF REPORT 2020-05-24 14:09:00-00:00 [facility] Clinical Note REPORT#:[id number] REPORT STATUS: Signed DATE:05/24/20 TIME: 1409 PATIENT: DARIEN GROSSMAN UNIT #: [id number] ROOM/BED: [place] [address] : 45 AGE: 74 SEX: M ATTEND: Rosa Curtis MD ADM AUTHOR: Danny Keith MD * ALL edits or amendments must be made on the el [employer]/computer document * Clinical Note Note: 74-year-old male [...] functional mobility, balance, gait , and endurance 4/13: Underwent ultrasound guided aspiration of superficial fluid [...] Keith MD n 06/01/20 at 1316 RPT #:[id number] END OF REPORT 2020-05-24 11:00:00-00:00 [facility] ([facility]) Pain Management Progress Note REPORT#:[id number] REPORT STATUS: Signed DATE:05/24/20 TIME: 1100 PATIENT: DARIEN GROSSMAN UNIT #: [id number] ROOM/BED: [place] [address] : 45 AGE: 74 SEX: M ATTEND: Rosa Curtis MD ADM AUTHOR: Sohail Wells * ALL edits or amendments must be made on the [employer]/computer document * Subjective Chief complaint: Patient seen [...] all, no edema, pedal pulses, right AKA Neuro/ELECTRICAL CONTROLS TECHNICIAN: no motor deficits, no sensory deficit s, [...] (Auto) (14.0 - 32.0 %) 7.0 L [place] % (Auto) (4.8 - 9.0 %) 7.2 Eos % (Auto) (0.3 - 3.7 %) 5.9 H Baso % (Auto) (0.0 - 2.0 %) 0.4 Neut # (Auto) (2.0 - 7.6 x10 3/uL) 7.67 H Lymph # (Auto) (1.0 - 3.8 x10 3/uL) 0.68 L [place] # (Auto) (0.1 - 0.8 x10 3/uL) [...] this helps with the pain. Patient declined -4/13-decrease [place] 10/325 to [place] 7.5/325 james ry 4 as needed -Lidoderm patch to left thigh daily -[place] 7.5/325 mg oral every 4 hours as [...] Case discussed with Dr Lofton whom agrees. 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: Total Prescriptions 28 Total Private Pay 0 Total Prescribers 4 Total Pharmacies 1 05/06/2020 1 05/06/2020 HYDROCODONE-ACETAMIN 10- 325 MG 30.0 7 [facility] SPA [id number] [facility] (4057) 0 42.86 MME [facility] [place] 04/20/2020 1 12/24/2019 ZOLPIDEM TARTRATE 10 MG TABLET 30.0 30 PE LAT [id number] [facility] (0414) 4 [facility] [place] 03/21/2020 1 12/24/2019 ZOLPIDEM TARTRATE 10 MG TABLET 30.0 30 PE LAT [id number] [facility] (1602) 3 [place] [facility] [place] 02/20/2020 1 12/24/2019 ZOLPIDEM TARTRATE 10 MG TABLET 30.0 30 PE LAT [id number] [facility] (1602) 2 [place] [facility] [place] 01/21/2020 1 12/24/2019 ZOLPIDEM TARTRATE 10 MG TABLET 30.0 30 PE LAT [id number] [facility] (1602) 1 [place] [facility] [place] 12/24/2019 1 12/24/2019 ZOLPIDEM TARTRATE 10 MG TABLET 30.0 30 PE LAT [id number] [facility] (1602) 0 [place] 11/25/2019 1 07/07/2019 ZOLPIDEM TARTRATE 10 MG TABLET 30.0 30 PE LAT [id number] [facility] (1602) 5 [place] Ins [place] [facility] (3525) [address] [place] [address] at 1409 RPT #:[id number] END OF REPORT 2020-05-24 11:00:00-00:00 [facility] Pain Management Progress Note REPORT#:[id number] REPORT STATUS: Signed DATE:05/24/20 TIME: 1100 PATIENT: DARIEN GROSSMAN UNIT #: [id number] ROOM/BED: [place] [address] : 45 AGE: 74 SEX: M ATTEND: Rosa Curtis MD ADM AUTHOR: Sohail Wells * ALL edits or amendments must be made on the [employer]/computer document * Subjective Chief complaint: Patient seen [...] B/P 134/64 05/25 723 B/P Mean 87.3 05/24 0724 O2 Delivery [...] all, no edema, pedal pulses, right AKA Neuro/ELECTRICAL CONTROLS TECHNICIAN: no motor deficits, no sensory deficit s, [...] (Auto) (14.0 - 32.0 %) 7.0 L Rutherford % (Auto) (4.8 - 9.0 %) 7.2 Eos % (Auto) (0.3 - 3.7 %) 5.9 H Baso % (Auto) (0.0 - 2.0 %) 0.4 Neut # (Auto) (2.0 - 7.6 x10 3/uL) 7.67 H Lymph # (Auto) (1.0 - 3.8 x10 3/uL) 0.68 L Rutherford # (Auto) (0.1 - 0.8 x10 3/uL) [...] - CT LOWER EXTRM W/O C RT 05/238 Report Impression - Status: SIGNED Entered: 05/23/2020 7498 IMPRESSION: Above the knee amputation changes wi [...] helps with the pain. Patient declined -05/24-decrease [place] 10/325 to [place] 7.5/325 james ry 4 as needed -Lidoderm patch to left thigh daily -[place] 7.5/325 mg oral every 4 hours as [...] Case discussed with Dr Lofton whom agrees. 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: Total Prescriptions 28 Total Private Pay 0 Total Prescribers 4 Total Pharmacies 1 05/06/2020 1 05/06/2020 HYDROCODONE-ACETAMIN 10- 325 MG 30.0 7 [facility] SPA [id number] [facility] (1602) 0 42.86 MME Comm Ins [place] 04/20/2020 1 12/24/2019 ZOLPIDEM TARTRATE 10 MG TABLET 30.0 30 PE LAT [id number] [facility] (1602) 4 Comm Ins [place] 03/21/2020 1 12/24/2019 ZOLPIDEM TARTRATE 10 MG TABLET 30.0 30 PE LAT [id number] [facility] (1602) 3 Comm Ins [place] 02/20/2020 1 12/24/2019 ZOLPIDEM TARTRATE 10 MG TABLET 30.0 30 PE LAT [id number] [facility] (1602) 2 Comm Ins [place] 01/21/2020 1 12/24/2019 ZOLPIDEM TARTRATE 10 MG TABLET 30.0 30 PE LAT [id number] [facility] (1602) 1 [place] Ins [place] 12/24/2019 1 12/24/2019 ZOLPIDEM TARTRATE 10 MG TABLET 30.0 30 PE LAT [id number] [facility] (1602) 0 Comm Ins [place] 11/25/2019 1 07/07/2019 ZOLPIDEM TARTRATE 10 MG TABLET 30.0 30 PE LAT [id number] [facility] (1602) 5 Comm Ins [place] [facility] ([phone]) [address] [place] [address] at 1404 Electronically Signed by Herman Lofton MD on 0 05/24/20 at 5443 RPT #:[id number] END OF REPORT 2020-05-24 09:29:00-00:00 [facility] ([facility]) Infectious Dis. Progress Note REPORT#:[id number] REPORT STATUS: Signed DATE:05/24/20 TIME: 928 PATIENT: DARIEN GROSSMAN UNIT #: [id number] ROOM/BED: [place] [address] : 45 AGE: 74 SEX: M ATTEND: Rosa Curtis MD ADM AUTHOR: Jonathan Sheikh NP * ALL edits or amendments must be made on the el [employer]/computer document * Subjective Chief Complaint: F/U Rght AKA cellulitis HPI: Patient is a 74-year-old male with past medical history of end-stage renal disease on HD, hypertension, hyperlipide liseth who underwent right sdqoe-rnz-daqe amputation in March 2020. He was admitted to [facility] after sustaining a fall resulting in a [...] Delivery Room air 05/25 723 Temp 99.0 05/24 07 Pulse 60 05/24 0724 Resp [...] heart sounds Abdomen: non-tender, normal bowel sounds Neuro/ELECTRICAL CONTROLS TECHNICIAN: alert, oriented X 3 Skin: dry, normal [...] (Auto) (14.0 - 32.0 %) 7.0 L Rutherford % (Auto) (4.8 - 9.0 %) 7.2 Eos % (Auto) (0.3 - 3.7 %) 5.9 H Baso % (Auto) (0.0 - 2.0 %) 0.4 Neut # (Auto) (2.0 - 7.6 x10 3/uL) 7.67 H Lymph # (Auto) (1.0 - 3.8 x10 3/uL) 0.68 L Rutherford # (Auto) (0.1 - 0.8 x10 3/uL) 0.70 Eos # (Auto) (0.0 - 0.2 x10 3/uL) 0.57 H Baso # (Auto) (0.0 - 0.2 x10 3/uL) 0.04 Abs Immat Gran (auto) (0.00 - 0.03 x10 3/uL) 0 .06 H Add Manual Diff NO Immature Gran [...] Co NS --ESR/CRP significant elevated --CT (+) [id number] loculated f luid collection; IR for diagnostic aspiration and cx 2. S/P Mechanical fall with SDH 3. ESRD on HD 4. HTN 5. HLD On Zosyn started 05/23 (Day 1) Plan discussed with: patient, nurse Electronically Signed by Jonathan Sheikh NP on at 161 RPT #:[id number] END OF REPORT 2020-05-24 09:29:00-00:00 [facility] ([facility]) Infectious Dis. Progress Note REPORT#:[id number] REPORT STATUS: Signed DATE:05/24/20 TIME: 928 PATIENT: DARIEN GROSSMAN UNIT #: [id number] ROOM/BED: [place] [address] : 45 AGE: 74 SEX: M ATTEND: Rosa Curtis MD ADM AUTHOR: Jonathan Sheikh NP * ALL edits or amendments must be made on the [employer]/computer document * Subjective Chief Complaint: F/U Rght AKA cellulitis HPI: Patient is a 74-year-old male with past medical history of end-stage renal disease on HD, hypertension, hyperlipide liseth who underwent right bappv-ylc-qvnf amputation in March 2020. He was admitted to [facility] after sustaining a fall resulting in a [...] heart sounds Abdomen: non-tender, normal bowel sounds Neuro/ELECTRICAL CONTROLS TECHNICIAN: alert, oriented X 3 Skin: dry, normal [...] (Auto) (14.0 - 32.0 %) 7.0 L Rutherford % (Auto) (4.8 - 9.0 %) 7.2 Eos % (Auto) (0.3 - 3.7 %) 5.9 H Baso % (Auto) (0.0 - 2.0 %) 0.4 Neut # (Auto) (2.0 - 7.6 x10 3/uL) 7.67 H Lymph # (Auto) (1.0 - 3.8 x10 3/uL) 0.68 L Rutherford # (Auto) (0.1 - 0.8 x10 3/uL) [...] Report Impression - Status: SIGNED Entered: 05/23/2020 5006 IMPRESSION: Above the knee amputation changes wi th complex soft tissue fluid collection at the stump site. There is los s of fatty medullary density at the stump site. Osteomyelitis is not excluded. Correlate with MRI as clinically indicated. SL: SG-H Impression By: [email or web address] - Dominic Mena M.D. Results: labs reviewed, vital signs stable, CT r esults reviewed (images personally reviewed), current med profile rev'd Diagnosis, Assessment Plan Free Text A P: 1. Right AKA stump cellulitis --R/O fluid collection, check CT extremity --Superficial cx: Pseudomonas (R-Merrem), and Co NS --ESR/CRP significant elevated --CT (+) [id number] loculated f luid collection; IR for diagnostic aspiration and cx 2. S/P Mechanical fall with SDH 3. ESRD on HD 4. HTN 5. HLD On Zosyn started 05/23 (Day 1) Plan discussed with: patient, nurse Electronically Signed by Jonathan Sheikh CALCINE 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 on at 1618 at 0818 RPT #:[id number] END OF REPORT 2020-05-24 09:10:00-00:[address] [facility] ([facility]) Rehab Progress Note REPORT#:[id number] REPORT STATUS: Signed DATE:05/24/20 TIME: 909 PATIENT: DARIEN GROSSMAN UNIT #: [id number] ROOM/BED: [place] [address] : 45 AGE: 74 SEX: M ATTEND: Rosa Curtis MD ADM AUTHOR: Sekou Curtis MD * ALL edits or amendments must be made on the [employer]/computer document * Subjective Chief complaint: Rehab follow-up Generalized weakness Patient still depressed and tearful today Did not receive his Pristiq from home Right AKA wounds look better Slept well Working with therapist Eating 5-100% Positive BM Denies GUTIÉRREZ/N/V/D 14 systems reviewed and neg. except that above. Patient reports: No: shortness of breath, vomiting, constipation. Nursing reports: No: new events overnight. Objective General VS: Vital Signs: Date Time Temp Pulse Resp B/P B/P Pulse O2 O2 F low FiO2 Mean Ox Delivery Rate 05/25 723 99.0 60 18 134/64 87.3 93 Room [...] SUPINE WITH IND, GT TRAINING FOR 100 FT, 200 FT W/ [...] A TO I. PT REQ MAX CUES SAFETY AWERENESS ABOUT ADL. EDUCATED LB DRESSING AT BED LEVEL. P T WAS EMOTIONAL DURING THERAPY. ASSISTED PT SIT IN WC , ALL NEEDS IN REACH. CON'T SKILLED OT [...] MMT moves all against gravity. BUE 4/5, CLOTH BOOKER GOOD, RHF 3+/5, LLE 4/5. L calf NT, No cords. TTP L lateral thigh above trochanter bursae. Neuro/ELECTRICAL CONTROLS TECHNICIAN: alert, oriented X 3, CNII-XII intact, normal [...] (Auto) (14.0 - 32.0 %) 7.0 L Rutherford % (Auto) (4.8 - 9.0 %) 7.2 Eos % (Auto) (0.3 - 3.7 %) 5.9 H Baso % (Auto) (0.0 - 2.0 %) 0.4 Neut # (Auto) (2.0 - 7.6 x10 3/uL) 7.67 H Lymph # (Auto) (1.0 - 3.8 x10 3/uL) 0.68 L Rutherford # (Auto) (0.1 - 0.8 x10 3/uL) [...] Report Impression - Status: SIGNED Entered: 05/23/2020 7813 IMPRESSION: Above the knee amputation changes wi th complex soft tissue fluid collection at the stump site. There is los s of fatty medullary density at the stump site. Osteomyelitis is not excluded. Correlate with MRI as clinically indicated. SL: CLEMENTINE Impression By: [email or web address] - Dominic Mena M.D. [...] greater trochanteric bursitis-possible injection as per pain medical staff services manager-continue [place] and gabapentin -Left thigh pain, lateral femoral [...] -History of depression/anxie ty continue BuSpar, Desyrel, Effexor-probation officer bring in patient's home Pristiq -Monitor hemoglobin [...] n as per ID -05/23-CT of RLE-CT(+) 6/4cm loculated fluid co llection Infectious disease believes [...] min>50% with discussin g with patient about team conference, discharge plan [...] MIN 05/24 UNK Complete TRAY BX 25GA / NDL 05/24 UNK Complete Plan discussed with: patient, nurse, interdisc c are team Rehab attestation: Face to face exam completed. Treatment plan disc ussed with patient. Meets continued stay criteria. Agree with interdiscipl inary treatment plan. Patient seen and examined by me personally. at 9884 RPT #:[id number] END OF REPORT 2020-05-23 23:17:00-00:00 [facility] Internal Medicine Prog. Note REPORT#:[id number] REPORT STATUS: Signed DATE:05/23/20 TIME: 2316 PATIENT: DARIEN GROSSMAN UNIT #: [id number] ROOM/BED: [place] [address] : 45 AGE: 74 SEX: M ATTEND: Rosa Curtis MD ADM AUTHOR: Javier Meek NP * ALL edits or amendments must be made on the [employer]/computer document * Subjective Chief Complaint: Right AKA [...] %) 7.0 L 7.6 L 9.4 L Rutherford % (Auto) (4.8 - 9.0 %) 7.2 9.8 H 10.2 H Eos % (Auto) (0.3 - 3.7 %) 5.9 H 6.3 H 5.2 H Baso % (Auto) (0.0 - 2.0 %) 0.4 0.4 0.3 Neut # (Auto) (2.0 - 7.6 x10 3/uL) 7.67 H 9.40 H 9.13 H Lymph # (Auto) (1.0 - 3.8 x10 3/uL) 0.68 L 0.95 L 1.16 Rutherford # (Auto) (0.1 - 0.8 x10 3/uL) [...] WND OTHER: Gram Stain - COMP 05/21 4752 LEG: Wound Culture - RES PSEUDOMONAS AERUGINOSA [...] 05/23 2100 AC 05/12 2 PO 06/22 Albumin Human [...] 75 MG DAILY 05/20 899 AC 05/12 2 PO 06/19 1300 0801 Acetaminophen 650 MG [...] 05/19 2099 AC 05/23 PO 06/19 1300 202 Metoprolol Tartrate 25 MG BID 05/19 2100 AC PO 06/19 1300 2023 Trazodone HCl 150 MG BEDTIME 05/19 2099 AC 05/12 2 PO 06/19 1300 2023 [...] as clinically indicated. SL: CLEMENTINE Impression By: [email or web address] - Dominic Mena M.D. Vital Signs Date Temp Pulse Resp B/P B/P Mean Pulse Ox FiO2 05/23 37.0 65-69 16-18 145/72 96.4 93-95 Last Documented: Result Date Time Pulse Ox 95 05/23 2008 B/P 145/72 05/23 2008 B/P Mean 96.4 05/23 2008 Temp 37.0 05/23 2008 Pulse 69 05/23 2008 Resp 16 05/23 2008 O2 Delivery Room air 05/229 24 hour I O ending at 0700: [...] bowel sounds, soft Extremities: Extremities: RT AKA Neuro/ELECTRICAL CONTROLS TECHNICIAN: alert, oriented x 3 Skin: dry, normal [...] CT of the right femur without contrast: Aocus-pic-dubp amputation changes with complex soft tissue fluid co llection at the stump site. There is loss of fatty medullary density at the stump site. Osteomyelit is is not excluded. Correlate with MRI. Continue wound care Plan of care: -Continue with comprehensive inpatient rehabilit [facility] rehab team -Pain control -Fall precaution -DVT prophylaxis subcu heparin -GI prophylaxis patient currently on Protonix -Pain control as pain management -Seizure precaution patient on Keppra -Continues present medications -Monitor labs -Plan of care discussed with the patient, galina palma's nurse, and Dr. Cavazos. Electronically Signed by Javier Meek NP on 0 05/26/20 at 0223 RPT #:[id number] END OF REPORT 2020-05-23 23:17:00-00:00 [facility] ([facility]) Internal Medicine Prog. Note REPORT#:[id number] REPORT STATUS: Signed DATE:05/23/20 TIME: 2316 PATIENT: DARIEN GRSOSMAN UNIT #: [id number] ROOM/BED: [place] [address] : 45 AGE: 74 SEX: M ATTEND: Rosa Curtis MD ADM AUTHOR: Javier Meek NP * ALL edits or amendments must be made on the [employer]/computer document * Javier Meek 05/23/20 2317: Subjective [...] marked Objective General VS/I O: Laboratory Tests 04/12/21 1300: [Embedded Image Not Available] 05/23/20 1300: [...] %) 7.0 L 7.6 L 9.4 L Rutherford % (Auto) (4.8 - 9.0 %) 7.2 9.8 H 10.2 H Eos % (Auto) (0.3 - 3.7 %) 5.9 H 6.3 H 5.2 H Baso % (Auto) (0.0 - 2.0 %) 0.4 0.4 0.3 Neut # (Auto) (2.0 - 7.6 x10 3/uL) 7.67 H 9.40 H 9.13 H Lymph # (Auto) (1.0 - 3.8 x10 3/uL) 0.68 L 0.95 L 1.16 Rutherford # (Auto) (0.1 - 0.8 x10 3/uL) [...] 2100 AC 05/12 2 PO 06/22 2058 220 Albumin Human 12.5 GM ASDIR PRN 05/23 [...] 100 ML Collagenase 1 APPLIC DAILY 05/22 0900 AC 05/23 TOPICAL 06/21 0859 0801 Cefepime [...] UNIT Q8H 05/190 AC SUBQ 06/19 1300 2209 Buspirone HCl 10 MG BEDTIME 05/19 2100 DC 05/23 PO 06/19 1300 2024 Epoetin Donny-epbx 4,000 UNIT TuThSa@2100 05/19 2100 AC 05/21 SUBQ 06/19 1300 2143 Gabapentin 300 MG BEDTIME 05/19 2100 AC 05/23 PO 06/19 1300 2024 Metoprolol Tartrate 25 MG BID 05/19 2099 AC PO 06/19 1300 2023 Trazodone HCl 150 MG BEDTIME 05/19 2099 AC 05/12 2 PO 06/19 1300 2023 Hydrocodone Bitart/ 1 TAB Q4H PRN PRN 05/19 201 5 AC 05/20 Acetaminophen PO 07/20 1300 2244 Zolpidem Tartrate 5 MG BEDTIME PRN PRN 05/19 20 00 AC 04/12 PO 06/19 1300 2023 Recent Impressions-Last 72 Hrs RADIOLOGY - XR [...] bowel sounds, soft Extremities: Extremities: RT AKA Neuro/ELECTRICAL CONTROLS TECHNICIAN: alert, oriented x 3 Skin: dry, normal [...] CT of the right femur without contrast: Felrw-mmk-wfaf amputation changes with complex soft tissue fluid collection at the stump site. There is loss of fatty medullary density at the stump site. Osteomyelit is is not excluded. Correlate with MRI. Continue wound care Plan of care: -Continue with comprehensive inpatient rehabilit [facility] rehab team -Pain control -Fall precaution -DVT [...] with JOSE Meek. Pertinent labs, Imaging, and skin care consultant evaluations reviewed. 74-year-old male was admitted to inpatient rehab for comprehensive rehabilitation. He has no leukocytosis or anemia today. We will continue to monitor his renal function. CT scan of the right femur without contrast was obtained, which showed lqiws-afk-iapb amputation changes with complex soft tissue fluid [...] NP on 0 05/26/20 at 0223 RPT #:[id number] END OF REPORT 2020-05-23 23:17:00-00[facility]00 [facility] RE[facility]#:[id number] REPORT STATUS: Signed DATE:05/23/20 TIME: 2316 PATIENT: DARIEN GROSSMAN UNIT #: [id number] ROOM[facility]BED: [facility] : 45 AGE: 74 SEX: M ATTEND: Rosa Curtis MD ADM AUTHOR: Javier Meek CALCINE 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 * ALL edits or amendments must be made on the [employer]/computer document * Javier Meek 05/23/202316: Subjective Chief [...] %) 7.0 L 7.6 L 9.4 L Rutherford % (Auto) (4.8 - 9.0 %) 7.2 9.8 H 10.2 H Eos % (Auto) (0.3 - 3.7 %) 5.9 H 6.3 H 5.2 H Baso % (Auto) (0.0 - 2.0 %) 0.4 0.4 0.3 Neut # (Auto) (2.0 - 7.6 x10 3/uL) 7.67 H 9.40 H 9.13 H Lymph # (Auto) (1.0 - 3.8 x10 3/uL) 0.68 L 0.95 L 1.16 Rutherford # (Auto) (0.1 - 0.8 x10 3/uL) [...] 37.0 69 16 145/72 96.4 95 05/23 708 37.0 65 18 145/72 96.4 93 05/23 [...] BID 05/19 2100 AC PO 06/19 1300 202 Trazodone HCl 150 MG BEDTIME 05/19 2100 [...] as clinically indicated. SL: CLEMENTINE Impression By: [email or web address] - Dominic Mena M.D. [...] bowel sounds, soft Extremities: Extremities: RT AKA Neuro/ELECTRICAL CONTROLS TECHNICIAN: alert, oriented x 3 Skin: dry, normal [...] CT of the right femur without contrast: Vbfhb-ffq-oxwx amputation changes with complex soft tissue fluid collection at the stump site. There is loss of fatty medullary density at the stump site. Osteomyelit is is not excluded. Correlate with MRI. Continue wound care Plan of care: -Continue with comprehensive inpatient rehabil[facility] rehab team -Pain control -Fall precaution -DVT [...] with JOSE Meek. Pertinent labs, Imaging, and skin care consultant evaluations review ed. 74-year-old male was admitted to inpatient rehab for comprehensive rehabilitation. He has no leukocytosis or anemia today. We will continue to monitor his renal function. CT scan of the right femur without contrast was obtained, which showed nkpjs-iup-gqpn amputation changes with complex soft tissue fluid [...] NP on 0 05/26/20 at 0223 RPT #:[id number] END OF REPORT 2020-05-23 23:17:00-00:00 [facility] Internal Medicine Prog. Note REPORT#:[id number] REPORT STATUS: Signed DATE:05/23/20 TIME: 2316 PATIENT: DARIEN GROSSMAN UNIT #: [id number] ROOM[facility]BED: [facility] [place] : 45 AGE: 74 SEX: M ATTEND: Rosa Curtis MD ADM AUTHOR: Javier Meek NP * ALL edits or amendments must be made on the el [employer]/computer document * Javier Meek 05/23/20 2317: Subjective [...] Laboratory Tests 05/23 05/22 05/22 05/21 1300 0500 3195 0560 Hematology WBC (4.5 - 11.0 x10 3/uL) [...] %) 7.0 L 7.6 L 9.4 L Rutherford % (Auto) (4.8 - 9.0 %) 7.2 9.8 H 10.2 H Eos % (Auto) (0.3 - 3.7 %) 5.9 H 6.3 H 5.2 H Baso % (Auto) (0.0 - 2.0 %) 0.4 0.4 0.3 Neut # (Auto) (2.0 - 7.6 x10 3/uL) 7.67 H 9.40 H 9.13 H Lymph # (Auto) (1.0 - 3.8 x10 3/uL) 0.68 L 0.95 L 1.16 Rutherford # (Auto) (0.1 - 0.8 x10 3/uL) [...] WND OTHER: Gram Stain - COMP 05/21 4102 LEG: Wound Culture - RES PSEUDOMONAS AERUGINOSA [...] 05/23 2100 AC 05/12 2 PO 06/22 Albumin Human [...] 05/19 2100 AC 05/23 PO 06/19 1300 2023 Metoprolol Tartrate 25 MG BID 05/19 2099 AC PO 06/19 1300 2022 Trazodone HCl 150 MG BEDTIME 05/19 2100 AC PO 06/19 1300 202 Hydrocodone Bitart/ 1 [...] bowel sounds, soft Extremities: Extremities: RT AKA Neuro/ELECTRICAL CONTROLS TECHNICIAN: alert, oriented x 3 Skin: dry, normal [...] CT of the right femur without contrast: Ujiin-top-scbf amputation changes with complex soft tissue fluid collection at the stump site. There is loss of fatty medullary density at the stump site. Osteomyelit is is not excluded. Correlate with MRI. Continue wound care Plan of care: -Continue with comprehensive inpatient rehabil[facility] rehab team -Pain control -Fall precaution -DVT [...] with JOSE Meek. Pertinent labs, Imaging, and skin care consultant evaluations review ed. 74-year-old male was admitted to inpatient rehab for comprehensive rehabilitation. He has no leukocytosis or anemia today. We will continue to monitor his renal function. CT scan of the right femur without contrast was obtained, which showed jyrtw-yja-ucnk amputation changes with complex soft tissue fluid [...] 0223 Electronically Signed by Danny Keith MD o n 05/26/20 at 2150 RPT #:[id number] END OF REPORT 2020-05-23 14:11:00-00:00 [facility] Nephrology Progress Note REPORT#:[id number] REPORT STATUS: Signed DATE:05/23/20 TIME: 1411 PATIENT: DARIEN GROSSMAN UNIT #: [id number] ROOM/BED: [place] [address] : 45 AGE: 74 SEX: M ATTEND: Rosa Curtis MD ADM AUTHOR: Merissa Dillon MD * ALL edits or amendments must be made on the el [employer]/computer document * Subjective Chief Complaint: Patient seen and examined. G etting dialysis. c/o being depressed and not on his home antidepressant Objective General VS/I O: Vital Signs: Date Time Temp Pulse Resp B/P B/P Pulse O2 O2 F low FiO2 Mean Ox Delivery Rate 05/23 2008 98.6 69 16 145/72 96.4 95 05/23 708 98.6 65 18 145/72 96.4 93 05/22 [...] (Auto) (14.0 - 32.0 %) 7.0 L Rutherford % (Auto) (4.8 - 9.0 %) 7.2 Eos % (Auto) (0.3 - 3.7 %) 5.9 H Baso % (Auto) (0.0 - 2.0 %) 0.4 Neut # (Auto) (2.0 - 7.6 x10 3/uL) 7.67 H Lymph # (Auto) (1.0 - 3.8 x10 3/uL) 0.68 L Rutherford # (Auto) (0.1 - 0.8 x10 3/uL) [...] been stable. -Psych f/u. at 2239 RPT #:[id number] END OF REPORT 2020-05-23 13:46:00-00:[address] [facility] ([facility]) Infectious Dis. Progress Note REPORT#:[id number] REPORT STATUS: Signed DATE:05/23/20 TIME: 1346 PATIENT: DARIEN GROSSMAN UNIT #: [id number] [place]BED: [facility] [place] : 45 AGE: 74 SEX: M ATTEND: Rosa Curtis MD ADM AUTHOR: Jonathan Sheikh NP * ALL edits or amendments must be made on the [employer]/computer document * Subjective Chief Complaint: F/U Rght AKA cellulitis HPI: Patient is a 74-year-old male with past medical history of end-stage renal disease on HD, hypertension, hyperlipide liseth who underwent right ldvfb-fnd-ysrl amputation in March 2020. He was admitted to [facility] after sustaining a fall resulting in a [...] 0709 O2 Delivery Room air 05/22 2249 Vital Signs Date Temp Pulse Resp B/P [...] symmetric expansion Abdomen: non-tender, normal bowel sounds Neuro/ELECTRICAL CONTROLS TECHNICIAN: alert, oriented X 3 Skin: dry, no [...] (Auto) (14.0 - 32.0 %) 7.0 L Rutherford % (Auto) (4.8 - 9.0 %) 7.2 Eos % (Auto) (0.3 - 3.7 %) 5.9 H Baso % (Auto) (0.0 - 2.0 %) 0.4 Neut # (Auto) (2.0 - 7.6 x10 3/uL) 7.67 H Lymph # (Auto) (1.0 - 3.8 x10 3/uL) 0.68 L Rutherford # (Auto) (0.1 - 0.8 x10 3/uL) [...] Jonathan Sheikh NP on at 1352 RPT #:[id number] END OF REPORT 2020-05-23 13:46:00-00:00 [facility] ([facility]) Infectious Dis. Progress Note REPORT#:[id number] REPORT STATUS: Signed DATE:05/23/20 TIME: 1346 PATIENT: DARIEN GROSSMAN UNIT #: [id number] [place]BED: [facility] [place] : 45 AGE: 74 SEX: M ATTEND: Rosa Curtis MD ADM AUTHOR: Jonathan Sheikh NP * ALL edits or amendments must be made on the el [employer]/computer document * Subjective Chief Complaint: F/U Rght AKA cellulitis HPI: Patient is a 74-year-old male with past medical history of end-stage renal disease on HD, hypertension, hyperlipide liseth who underwent right cstlc-ool-vvtu amputation in March 2020. He was admitted to [facility] after sustaining a fall resulting in a [...] 0709 O2 Delivery Room air 05/22 2249 Vital Signs Date Temp Pulse Resp B/P B/P Mean Pulse Ox FiO 2 05/22-05/23 97.6-98.6 62-74 16-20 127-145/67-72 87-96.4 93-95 [...] symmetric expansion Abdomen: non-tender, normal bowel sounds Neuro/ELECTRICAL CONTROLS TECHNICIAN: alert, oriented X 3 Skin: dry, no [...] (Auto) (14.0 - 32.0 %) 7.0 L Rutherford % (Auto) (4.8 - 9.0 %) 7.2 Eos % (Auto) (0.3 - 3.7 %) 5.9 H Baso % (Auto) (0.0 - 2.0 %) 0.4 Neut # (Auto) (2.0 - 7.6 x10 3/uL) 7.67 H Lymph # (Auto) (1.0 - 3.8 x10 3/uL) 0.68 L Rutherford # (Auto) (0.1 - 0.8 x10 3/uL) [...] Jonathan Sheikh NP on at 1352 at 0817 RPT #:[id number] END OF REPORT 2020-05-23 10:23:00-00:00 [facility] ([facility]) Pain Management Progress Note REPORT#:[id number] REPORT STATUS: Signed DATE:05/23/20 TIME: 1023 PATIENT: DARIEN GROSSMAN UNIT #: [id number] ROOM/BED: [place] [address] : 45 AGE: 74 SEX: M ATTEND: Rosa Curtis MD ADM AUTHOR: Sohail Wells * ALL edits or amendments must be made on the [employer]/computer document * Subjective Chief complaint: Patient seen [...] 05/23 0709 O2 Delivery Room air 05/22 2248 24 [...] Extremities: moves all, no edema, pedal pulses Neuro/ELECTRICAL CONTROLS TECHNICIAN: no motor deficits, no sensory deficit s, [...] (Auto) (14.0 - 32.0 %) 7.0 L Rutherford % (Auto) (4.8 - 9.0 %) 7.2 Eos % (Auto) (0.3 - 3.7 %) 5.9 H Baso % (Auto) (0.0 - 2.0 %) 0.4 Neut # (Auto) (2.0 - 7.6 x10 3/uL) 7.67 H Lymph # (Auto) (1.0 - 3.8 x10 3/uL) 0.68 L Rutherford # (Auto) (0.1 - 0.8 x10 3/uL) [...] pain -Lidoderm patch to left thigh daily -[place] 10/325 mg oral every 4 hours as [...] Case discussed with Dr Lofton whom agrees. 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: Total Prescriptions 28 Total Private Pay 0 Total Prescribers 4 Total Pharmacies 1 05/06/2020 1 05/06/2020 HYDROCODONE-ACETAMIN 10- 325 MG 30.0 7 [facility] SPA [id number] [facility] (1602) 0 42.86 MME Comm Ins [place] 04/20/2020 1 12/24/2019 ZOLPIDEM TARTRATE 10 MG TABLET 30.0 30 PE LAT [id number] [facility] (1602) 4 Comm Ins [place] 03/21/2020 1 12/24/2019 ZOLPIDEM TARTRATE 10 MG TABLET 30.0 30 PE LAT [id number] [facility] (1602) 3 Comm Ins [place] 02/20/2020 1 12/24/2019 ZOLPIDEM TARTRATE 10 MG TABLET 30.0 30 PE LAT [id number] [facility] (1602) 2 [facility] [place] 01/21/2020 1 12/24/2019 ZOLPIDEM TARTRATE 10 MG TABLET 30.0 30 PE LAT [id number] [facility] ([id number]) 1 [facility] [place] 12/24/2019 1 12/24/2019 ZOLPIDEM TARTRATE 10 MG TABLET 30.0 30 PE LAT [id number] [facility] ([id number]) 0 [facility] [place] 11/25/2019 1 07/07/2019 ZOLPIDEM TARTRATE 10 MG TABLET 30.0 30 PE LAT [id number] [facility] ([id number]) 5 [facility] [place] [id number] ([id number]) [address] [place] [address] at 2017 RPT #:[id number] END OF REPORT 2020-05-23 10:23:00-00:[address] [facility] ([facility]) Pain Management Progress Note REPORT#:[id number] REPORT STATUS: Signed DATE:05/23/20 TIME: 1023 PATIENT: DARIEN GROSSMAN UNIT #: [id number] ROOM/BED: [place] [address] : 45 AGE: 74 SEX: M ATTEND: Rosa Curtis MD ADM AUTHOR: Sohail Wells * ALL edits or amendments must be made on the aCommerce/computer document * Subjective Chief complaint: Patient seen and examined. Chart and VIJAYA garza d. Patient is doing okay, no new [...] Documented: Result Date Time Pulse Ox 93 04/12 0709 B/P 145/72 05/23 708 B/P Mean 96.4 05/23 708 Temp 37.0 05/23 708 Pulse 65 05/23 708 Resp 18 05/23 708 O2 Delivery Room air 05/22 2248 24 [...] Extremities: moves all, no edema, pedal pulses Neuro/ELECTRICAL CONTROLS TECHNICIAN: no motor deficits, no sensory deficit s, [...] (Auto) (14.0 - 32.0 %) 7.0 L Rutherford % (Auto) (4.8 - 9.0 %) 7.2 Eos % (Auto) (0.3 - 3.7 %) 5.9 H Baso % (Auto) (0.0 - 2.0 %) 0.4 Neut # (Auto) (2.0 - 7.6 x10 3/uL) 7.67 H Lymph # (Auto) (1.0 - 3.8 x10 3/uL) 0.68 L Rutherford # (Auto) (0.1 - 0.8 x10 3/uL) [...] pain -Lidoderm patch to left thigh daily -[place] 10/325 mg oral every 4 hours as [...] Case discussed with Dr Lofton whom agrees. 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: Total Prescriptions 28 Total Private Pay 0 Total Prescribers 4 Total Pharmacies 1 05/06/2020 1 05/06/2020 HYDROCODONE-ACETAMIN 10- 325 MG 30.0 7 [facility] SPA [id number] [facility] (1602) 0 42.86 MME Comm Ins [place] 04/20/2020 1 12/24/2019 ZOLPIDEM TARTRATE 10 MG TABLET 30.0 30 PE LAT [id number] [facility] (1602) 4 Comm Ins [place] 03/21/2020 1 12/24/2019 ZOLPIDEM TARTRATE 10 MG TABLET 30.0 30 PE LAT [id number] [facility] (1602) 3 Comm Ins [place] 02/20/2020 1 12/24/2019 ZOLPIDEM TARTRATE 10 MG TABLET 30.0 30 PE LAT [id number] [facility] (1602) 2 Comm Ins [place] 01/21/2020 1 12/24/2019 ZOLPIDEM TARTRATE 10 MG TABLET 30.0 30 PE LAT [id number] [facility] (1602) 1 Comm Ins [place] 12/24/2019 1 12/24/2019 ZOLPIDEM TARTRATE 10 MG TABLET 30.0 30 PE LAT [id number] [facility] (1602) 0 Comm Ins [place] 11/25/2019 1 07/07/2019 ZOLPIDEM TARTRATE 10 MG TABLET 30.0 30 PE LAT [id number] [facility] (1602) 5 Comm Ins [place] [id number] (0722) [address] [place] [address] at 2017 Electronically Signed by Herman Lofton MD on 0 05/24/20 at 2338 RPT #:[id number] END OF REPORT 2020-05-23 09:24:00-00:00 [facility] ([facility]) Wound Care Progress Note REPORT#:[id number] REPORT STATUS: Signed DATE:05/23/20 TIME: 923 PATIENT: DARIEN GROSSMAN UNIT #: [id number] ROOM/BED: [place] [address] : 45 AGE: 74 SEX: M ATTEND: Rosa Curtis MD ADM AUTHOR: Shaila Gilbert * ALL edits or amendments must be made on the ShareGrove/computer document * Objective General Medications: Active Meds [...] or 4 days Nutrition prescription: 1. C alcira renal diet 2. Add Nepro 1x/day 3. Encourage food ordering and monitor fo od intake 3. [place] food preferences within diet and encourage oral intake >75% Dietitian name: Haley Shannon, [employer] Assessment completed: 05/20/20 Provider comments on imported [...] ] Nursing [ ] Case Management at 5611 RPT #:[id number] END OF REPORT 2020-05-23 01:58:00-00:00 [facility] ([facility] Clinical Note REPORT#:[id number] REPORT STATUS: Signed DATE:05/23/20 TIME: 0158 PATIENT: DARIEN GROSSMAN UNIT #: [id number] ROOM/BED: [place] [address] : 45 AGE: 74 SEX: M ATTEND: Rosa Curtis MD ADM AUTHOR: Danny Keith MD * ALL edits or amendments must be made on the ShareGrove/Meuugame document * Clinical Note Note: 74-year-old male [...] by Danny Keith MD n 05/24/20 at 1409 RPT #:[id number] END OF REPORT 2020-05-23 00:41:00-00:00 [facility] Progress Note REPORT#:[id number] REPORT STATUS: Signed DATE:05/23/20 TIME: 40 PATIENT: DARIEN GROSSMAN UNIT #: [id number] ROOM/BED: [place] [address] : 45 AGE: 74 SEX: M ATTEND: Rosa Curtis MD ADM AUTHOR: Sekou Curtis MD * ALL edits or amendments must be made on the ShareGrove/Meuugame document * Subjective Chief complaint: Rehab follow-up Generalized weakness Patient stated is more depressed-he thinks may b e possibly related to the substitution of his Pristiq medication-probation officer bring his medication from home today To go for CT scan of residual limb of residual l imb without contrast Right AKA wounds look better Slept well Working with therapist Eating fair Denies GUTIÉRREZ/N/V/D 14 systems reviewed and neg. except that above. Patient reports: No: shortness of breath, vomiting, constipation. Nursing reports: No: new events overnight. Comments: Questionable allergy to IV dye and iodine. 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 - PT DEMOS OX4 AT INDEPENDENT LEVEL WITH NOTED USE OF EXTERNAL AIDS WHEN NEEDED. 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 PT REQUIRED REPEATED REMINDERS TO UTILIZE STRATEGI ES, TRACK, AND ORGANIZE INFORMATION, THOUGH HE [...] TXFERS TODAY Activities of daily living: EATING- SE T UP, Pt. ATE HIS BREAKFAST SEATED EOB [...] NEEDS IN REACH AND BED ALARM ENGAGED. BATOOL Torres OT POC. - PT DAILY NOTE - [...] USING ANKLE WEIGHTS IN ALL AVAILABLE PLANES X1 5 GAIT- IN SPVN USING RW WC FOLLOW COMPLETED 30FT HOP-TO GAIT WITH 2 90DEG TURNS. Pt ADMIT FATIGUE HAD TO SI T REFUSED FURTHER AMBULATION ACTIVITIES. A: Pt LIMITED TO FATIGUE DT HD PER Pt. HD D ONE LATE AFTERNOON YESTERDAY PER Pt HAS NOT [...] MMT moves all against gravity. BUE 4/5, CLOTH BOOKER GOOD, RHF 3+/5, LLE 4/5. L calf NT, No cords. TTP L lateral thigh above trochanter bursae. Neuro/ELECTRICAL CONTROLS TECHNICIAN: alert, oriented X 3, CNII-XII intact, normal [...] (Auto) (14.0 - 32.0 %) 7.6 L Rutherford % (Auto) (4.8 - 9.0 %) 9.8 H Eos % (Auto) (0.3 - 3.7 %) 6.3 H Baso % (Auto) (0.0 - 2.0 %) 0.4 Neut # (Auto) (2.0 - 7.6 x10 3/uL) 9.40 H Lymph # (Auto) (1.0 - 3.8 x10 3/uL) 0.95 L Rutherford # (Auto) (0.1 - 0.8 x10 3/uL) [...] D.O. Objective Comments Objective comments: Microbiology: 05/21 1744 WND OTHER: Gram Stain [...] greater trochanteric bursitis-possible injection as per pain medical staff services manager-continue [place] and gabapentin -Left thigh pain, lateral femoral [...] incisional dressing care-wou nds looking better -Consult [employer] for evaluation -Continue aspirin and Plavix-Lasix -History of depression/anxie ty continue Carlyn Dixon Effexor-probation officer bring in patient's home Pristiq -Monitor hemoglobin [...] and examined by me personally. at 1525 [facility] #:[id number] END OF REPORT 2020-05-22 22:56:00-00:00 [facility] REPORT#:[id number] REPORT STATUS: Signed DATE:05/22/20 TIME: 2255 PATIENT: DARIEN GROSSMAN UNIT #: [id number] ROOM/BED: [place] [address] : 45 AGE: 74 SEX: M ATTEND: Sekou Curtis MD ADM AUTHOR: Javier Meek NP * ALL edits or amendments must be made on the ShareGrove/computer document * Subjective Chief Complaint: Right AKA [...] %) 7.6 L 9.4 L 7.0 L Rutherford % (Auto) (4.8 - 9.0 %) 9.8 H 10.2 H 10.3 H Eos % (Auto) (0.3 - 3.7 %) 6.3 H 5.2 H 6.9 H Baso % (Auto) (0.0 - 2.0 %) 0.4 0.3 0.2 Neut # (Auto) (2.0 - 7.6 x10 3/uL) 9.40 H 9.13 H 9.64 H Lymph # (Auto) (1.0 - 3.8 x10 3/uL) 0.95 L 1.16 0.90 L Rutherford # (Auto) (0.1 - 0.8 x10 3/uL) [...] 2017 Metoprolol Tartrate 25 MG BID 05/19 2099 [...] bowel sounds, soft Extremities: Extremities: RT AKA Neuro/ELECTRICAL CONTROLS TECHNICIAN: alert, oriented x 3 Skin: dry, normal [...] of care: -Continue with comprehensive inpatient rehabil[facility] team -Pain control -Fall precaution -DVT prophylaxis subcu heparin -GI prophylaxis patient currently on Protonix -Pain control as pain management -Seizure precaution patient on Keppra -Continues present medications -Monitor labs -Plan of care discussed with the patient, galina marcano nurse, and Dr. Cavazos. Electronically Signed by Javier Meek CALCINE 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 on 0 05/24/20 at 0422 RPT #:[id number] END OF REPORT 2020-05-22 22:56:00-00:00 [facility] Internal Medicine Prog. Note REPORT#:[id number] REPORT STATUS: Signed DATE:05/22/20 TIME: 2255 PATIENT: DARIEN GROSSMAN UNIT #: [id number] ROOM/BED: [place] [address] : 45 AGE: 74 SEX: M ATTEND: Rosa Curtis MD ADM AUTHOR: Javier Meek CALCINE 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 * ALL edits or amendments must be made on the ShareGrove/computer document * Javier Meek 05/22/20 4706: Subjective Chief Complaint: Right AKA Possible depression [...] %) 7.6 L 9.4 L 7.0 L Rutherford % (Auto) (4.8 - 9.0 %) 9.8 H 10.2 H 10.3 H Eos % (Auto) (0.3 - 3.7 %) 6.3 H 5.2 H 6.9 H Baso % (Auto) (0.0 - 2.0 %) 0.4 0.3 0.2 Neut # (Auto) (2.0 - 7.6 x10 3/uL) 9.40 H 9.13 H 9.64 H Lymph # (Auto) (1.0 - 3.8 x10 3/uL) 0.95 L 1.16 0.90 L Rutherford # (Auto) (0.1 - 0.8 x10 3/uL) [...] 2099 AC 05/22 PO 06/19 1300 2017 Metoprolol Tartrate 25 MG BID 05/19 2099 AC PO 06/19 1300 2016 Trazodone HCl 150 MG BEDTIME 05/19 2099 AC 04/1 1 PO 06/19 1300 2016 Hydrocodone Bitart/ 1 TAB Q4H PRN PRN 05/19 201 5 AC 05/20 Acetaminophen PO 07/20 1300 224 Zolpidem Tartrate 5 MG BEDTIME PRN PRN [...] bowel sounds, soft Extremities: Extremities: RT AKA Neuro/ELECTRICAL CONTROLS TECHNICIAN: alert, oriented x 3 Skin: dry, normal [...] of care: -Continue with comprehensive inpatient [facility]habil[facility] -Pain control -Fall precaution -DVT [...] with JOSE Meek. Pertinent labs, Imaging, and skin care consultant evaluations reviewed. 74-year-old male was admitted to inpatient rehab for comprehensive rehabilitation. He is participating in therapy d ail. He reportedly is depressed today and he [...] NP on 0 05/24/20 at 0422 RPT #:[id number] END OF REPORT 2020-05-22 22:56:00-00:00 [facility] REPORT#:[id number] REPORT STATUS: Signed DATE:05/22/20 TIME: 2255 PATIENT: DARIEN GROSSMAN UNIT #: [id number] ROOM[facility]BED: [facility] : 45 AGE: 74 SEX: M ATTEND: Rosa Curtis MD ADM AUTHOR: Javier Meek NP * ALL edits or amendments must be made on the el ectronic/computer document * Javier Meek 05/22/20 2256: Subjective Chief Complaint: Right AKA Possible depression [...] %) 7.6 L 9.4 L 7.0 L Rutherford % (Auto) (4.8 - 9.0 %) 9.8 H 10.2 H 10.3 H Eos % (Auto) (0.3 - 3.7 %) 6.3 H 5.2 H 6.9 H Baso % (Auto) (0.0 - 2.0 %) 0.4 0.3 0.2 Neut # (Auto) (2.0 - 7.6 x10 3/uL) 9.40 H 9.13 H 9.64 H Lymph # (Auto) (1.0 - 3.8 x10 3/uL) 0.95 L 1.16 0.90 L Rutherford # (Auto) (0.1 - 0.8 x10 3/uL) [...] 2099 AC 05/22 PO 06/19 1300 2017 Metoprolol Tartrate 25 MG BID 05/19 2099 [...] There is no acute osseous fracture or disloc ation. The hip joint spaces are preserved. Impression By: [email or web address] - James Kitchen D.O. Vital Signs Date Temp Pulse Resp B/P B/P Mean Pulse Ox FiO 2 05/22 36.4-36.7 55-81 16-20 98-146/57-68 70.7-9 3.6 [...] bowel sounds, soft Extremities: Extremities: RT AKA Neuro/ELECTRICAL CONTROLS TECHNICIAN: alert, oriented x 3 Skin: dry, normal [...] of care: -Continue with comprehensive inpatient rehabil[facility] rehab team -Pain control -Fall precaution -DVT prophylaxis subcu heparin -GI prophylaxis patient currently on Protonix -Pain control as pain management -Seizure precaution patient on Keppra -Continues present medications -Monitor labs -Plan of care discussed with the patient, galina palma's nurse, and Dr. Cvaazos. Danny Cavazos 05/25/202057: Attestations Physician Attestation Agree w/findings plan: I agree with the findings and plan as documented by JOSE Meek. Plan of care coordinated with JOSE Meek. Pertinent labs, Imaging, and skin care consultant evaluations reviewed. 74-year-old male was admitted to inpatient rehab for comprehensive rehabilitation. He is participating in therapy d aily. He reportedly is depressed today and he [...] NP on 0 05/24/20 at 0422 RPT #:[id number] END OF REPORT 2020-05-22 22:56:00-00:00 [facility] Prog. [facility] REPORT#:[id number] REPORT STATUS: Signed DATE:05/22/20 TIME: 2255 PATIENT: DARIEN GROSSMAN UNIT #: [id number] ROOM[facility]BED: [facility] : 45 AGE: 74 SEX: M ATTEND: Rosa Curtis MD ADM AUTHOR: Javier Meek CALCINE 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 * ALL edits or amendments must be made on the el aCommerce/computer document * Javier Meek 05/22/20 2256: Subjective Chief Complaint: Right AKA Possible depression [...] %) 7.6 L 9.4 L 7.0 L Rutherford % (Auto) (4.8 - 9.0 %) 9.8 H 10.2 H 10.3 H Eos % (Auto) (0.3 - 3.7 %) 6.3 H 5.2 H 6.9 H Baso % (Auto) (0.0 - 2.0 %) 0.4 0.3 0.2 Neut # (Auto) (2.0 - 7.6 x10 3/uL) 9.40 H 9.13 H 9.64 H Lymph # (Auto) (1.0 - 3.8 x10 3/uL) 0.95 L 1.1 6 0.90 L Rutherford # (Auto) (0.1 - 0.8 x10 3/uL) [...] 05/22 Sodium Chloride 10 ML IV 06/04 2058 2016 Miscellaneous 1 EACH ASDIR 05/21 1145 CKD [...] 2099 AC 05/22 PO 06/19 1300 2017 Metoprolol Tartrate 25 MG BID 05/19 2099 [...] Report Impression - Status: SIGNED Entered: 05/21/2020 8800 IMPRESSION: 1. There is no acute osseous fracture or disloca tion. The hip joint spaces are preserved. Impression By: [email or web address] - James Kitchen D.O. 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 Pertinent labs, Imaging, and skin care consultant evaluations reviewed. 74-year-old male was admitted to inpatient rehab for comprehensive rehabilitation. He is participating in therapy d ailguillaume. He reportedly is depressed today and he [...] Signed by Danny Keith MD 05/25/20 at 4734 RPT #:[id number] END OF REPORT 2020-05-22 09:18:00-00:[address] [facility] ([facility]) Pain Management Progress Note REPORT#:[id number] REPORT STATUS: Signed DATE:05/22/20 TIME: 917 PATIENT: DARIEN GROSSMAN UNIT #: [id number] ROOM/BED: [place] [address] : 45 AGE: 74 SEX: M ATTEND: Rosa Curtis MD ADM AUTHOR: Dusty Smiley NP * ALL edits or amendments must be made on the el aCommerce/computer document * Subjective Chief complaint: Patient seen [...] Extremities: moves all, no edema, pedal pulses Neuro/ELECTRICAL CONTROLS TECHNICIAN: no motor deficits, no sensory deficit s, [...] (Auto) (14.0 - 32.0 %) 7.6 L Rutherford % (Auto) (4.8 - 9.0 %) 9.8 H Eos % (Auto) (0.3 - 3.7 %) 6.3 H Baso % (Auto) (0.0 - 2.0 %) 0.4 Neut # (Auto) (2.0 - 7.6 x10 3/uL) 9.40 H Lymph # (Auto) (1.0 - 3.8 x10 3/uL) 0.95 L Rutherford # (Auto) (0.1 - 0.8 x10 3/uL) [...] - XR HIP W/PEL UNI 2+V LT 05/215 Report Impression - Status: SIGNED Entered: 05/21/2020 9655 IMPRESSION: 1. There is no acute osseous [...] pain -Lidoderm patch to left thigh daily -[place] 10/325 mg oral every 4 hours as [...] Case discussed with Dr Lofton whom agrees. 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: Total Prescriptions 28 Total Private Pay 0 Total Prescribers 4 Total Pharmacies 1 05/06/2020 1 05/06/2020 HYDROCODONE-ACETAMIN 10- 325 MG 30.0 7 [facility] SPA [id number] [facility] (1602) 0 42.86 MME Comm Ins [place] 04/20/2020 1 12/24/2019 ZOLPIDEM TARTRATE 10 MG TABLET 30.0 30 PE LAT [id number] [facility] (1602) 4 Comm Ins [place] 03/21/2020 1 12/24/2019 ZOLPIDEM TARTRATE 10 MG TABLET 30.0 30 PE LAT [id number] [facility] (1602) 3 Comm Ins [place] 02/20/2020 1 12/24/2019 ZOLPIDEM TARTRATE 10 MG TABLET 30.0 30 PE LAT [id number] [facility] (1602) 2 Comm Ins [place] 01/21/2020 1 12/24/2019 ZOLPIDEM TARTRATE 10 MG TABLET 30.0 30 PE LAT [id number] [facility] (1602) 1 Comm Ins [place] 12/24/2019 1 12/24/2019 ZOLPIDEM TARTRATE 10 MG TABLET 30.0 30 PE LAT [id number] [facility] (1602) 0 Comm Ins [place] 11/25/2019 1 07/07/2019 ZOLPIDEM TARTRATE 10 MG TABLET 30.0 30 PE LAT [id number] [facility] (1602) 5 Comm Ins [place] [facility] (0376) [address] [place] [address] at 1425 RPT #:[id number] END OF REPORT 2020-05-22 09:18:00-00:00 [facility] REPORT#:[id number] REPORT STATUS: Signed DATE:05/22/20 TIME: 917 PATIENT: DARIEN GROSSMAN UNIT #: [id number] ROOM/BED: [place] [address] : 45 AGE: 74 SEX: M ATTEND: Rosa Curtis MD ADM AUTHOR: Dusty Smiley NP * ALL edits or amendments must be made on the el aCommerce/computer document * Subjective Chief complaint: Patient seen [...] xray was normal. I discussed performing the [facility] femoral cataneous nerve block which he is [...] Pulse 81 05/22 0745 Resp 16 05/22 0645 24 hour I O ending at 0700: [...] Extremities: moves all, no edema, pedal pulses Neuro/ELECTRICAL CONTROLS TECHNICIAN: no motor deficits, no sensory deficit s, [...] (Auto) (14.0 - 32.0 %) 7.6 L Rutherford % (Auto) (4.8 - 9.0 %) 9.8 H Eos % (Auto) (0.3 - 3.7 %) 6.3 H Baso % (Auto) (0.0 - 2.0 %) 0.4 Neut # (Auto) (2.0 - 7.6 x10 3/uL) 9.40 H Lymph # (Auto) (1.0 - 3.8 x10 3/uL) 0.95 L Rutherford # (Auto) (0.1 - 0.8 x10 3/uL) [...] Report Impression - Status: SIGNED Entered: 05/21/2020 4147 IMPRESSION: 1. There is no acute osseous [...] pain -Lidoderm patch to left thigh daily -[place] 10/325 mg oral every 4 hours as [...] Case discussed with Dr Lofton whom agrees. 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: Total Prescriptions 28 Total Private Pay 0 Total Prescribers 4 Total Pharmacies 1 05/06/2020 1 05/06/2020 HYDROCODONE-ACETAMIN 10- 325 MG 30.0 7 CH SPA [id number] [facility] (1602) 0 42.86 MME Comm Ins [place] 04/20/2020 1 12/24/2019 ZOLPIDEM TARTRATE 10 MG TABLET 30.0 30 PE LAT [id number] [facility] (1602) 4 Comm Ins [place] 03/21/2020 1 12/24/2019 ZOLPIDEM TARTRATE 10 MG TABLET 30.0 30 PE LAT [id number] [facility] (1602) 3 Comm Ins [place] 02/20/2020 1 12/24/2019 ZOLPIDEM TARTRATE 10 MG TABLET 30.0 30 PE LAT [id number] [facility] (1602) 2 Comm Ins [place] 01/21/2020 1 12/24/2019 ZOLPIDEM TARTRATE 10 MG TABLET 30.0 30 PE LAT [id number] [facility] (1602) 1 Comm Ins [place] 12/24/2019 1 12/24/2019 ZOLPIDEM TARTRATE 10 MG TABLET 30.0 30 PE LAT [id number] [facility] (1602) 0 Comm Ins [place] 11/25/2019 1 07/07/2019 ZOLPIDEM TARTRATE 10 MG TABLET 30.0 30 PE LAT [id number] [facility] (1602) 5 Comm Ins [place] [facility] (2711) [address] [place] [address] at 1425 Electronically Signed by Herman Lofton MD on 0 05/23/20 at 0409 RPT #:[id number] END OF REPORT 2020-05-21 23:29:00-00:[address] [facility] ([facility]) Clinical Note REPORT#:[id number] REPORT STATUS: Signed DATE:05/21/20 TIME: 2328 PATIENT: DARIEN GROSSMAN UNIT #: [id number] ROOM/BED: [place] [address] : 45 AGE: 74 SEX: M ATTEND: Rosa Curtis MD ADM AUTHOR: Danny Keith MD * ALL edits or amendments must be made on the ShareGrove/computer document * Clinical Note Note: 74-year-old male [...] Signed by Danny Keith MD o n 05/24/20 at 1406 RPT #:[id number] END OF REPORT 2020-05-21 22:41:00-00:[address] [facility] ([facility]) Internal Medicine Prog. Note REPORT#:[id number] REPORT STATUS: Signed DATE:05/21/20 TIME: 2240 PATIENT: DARIEN GROSSMAN UNIT #: [id number] ROOM/BED: [place] [address] : 45 AGE: 74 SEX: M ATTEND: Rosa Curtis MD ADM AUTHOR: Javier Meek CALCINE 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 * ALL edits or amendments must be made on the ShareGrove/computer document * Subjective Chief Complaint: Right AKA [...] - 32.0 %) 9.4 L 7.0 L Rutherford % (Auto) (4.8 - 9.0 %) 10.2 H 10.3 H Eos % (Auto) (0.3 - 3.7 %) 5.2 H 6.9 H Baso % (Auto) (0.0 - 2.0 %) 0.3 0.2 Neut # (Auto) (2.0 - 7.6 x10 3/uL) 9.13 H 9.64 H Lymph # (Auto) (1.0 - 3.8 x10 3/uL) 1.16 0.90 L Rutherford # (Auto) (0.1 - 0.8 x10 3/uL) [...] Status Admin Collagenase 1 APPLIC DAILY 05/22 0900 AC TOPICAL 06/21 0859 Cefepime HCl 1 [...] 05/20 2100 AC 0 05/21 PO 06/19 2058 2141 Triamcinolone 40 MG PROCEDURE 05/20 1944 CKD [...] Ox 96 05/21 190 B/P 135/69 05/21 190 B/P Mean 91.1 05/21 190 O2 Delivery Room air 05/21 1905 Temp 37.0 05/21 1905 Pulse 67 05/21 1906 Resp 18 05/21 1905 24 hour I [...] bowel sounds, soft Extremities: Extremities: RT AKA Neuro/ELECTRICAL CONTROLS TECHNICIAN: alert, oriented x 3 Skin: dry, normal [...] of care: -Continue with comprehensive inpatient rehabil[facility] rehab team -Pain control -Fall precaution -DVT prophylaxis subcu heparin -GI prophylaxis patient currently on Protonix -Pain control as pain management -Seizure precaution patient on Keppra -Continues present medications -Monitor labs -Plan of care discussed with the patient, galina palma's nurse, and Dr. Cavazos. Electronically Signed by Javier Meek NP on 0 05/23/20 at 0818 RPT #:[id number] END OF REPORT 2020-05-21 22:41:00-00:00 [facility] Internal Medicine Prog. Note REPORT#:[id number] REPORT STATUS: Signed DATE:05/21/20 TIME: 2240 PATIENT: DARIEN GROSSMAN UNIT #: [id number] ROOM/BED: [place] [address] : 45 AGE: 74 SEX: M ATTEND: Rosa Curtis MD ADM AUTHOR: Javier Meek NP * ALL edits or amendments must be made on the ShareGrove/computer document * Javier Meek 05/21/20 2241: Subjective [...] 3.20 L Laboratory Tests 05/21 05/20 0550 0509 Hematology WBC (4.5 - 11.0 x10 3/uL) [...] - 32.0 %) 9.4 L 7.0 L Rutherford % (Auto) (4.8 - 9.0 %) 10.2 H 10.3 H Eos % (Auto) (0.3 - 3.7 %) 5.2 H 6.9 H Baso % (Auto) (0.0 - 2.0 %) 0.3 0.2 Neut # (Auto) (2.0 - 7.6 x10 3/uL) 9.13 H 9.64 H Lymph # (Auto) (1.0 - 3.8 x10 3/uL) 1.16 0.90 L Rutherford # (Auto) (0.1 - 0.8 x10 3/uL) [...] F low FiO2 Mean Ox Delivery Rate 04/10 1906 37.0 67 18 135/69 91.1 96 Room air 05/21 1643 37.3 69 24 132/66 88.3 93 05/21 0833 36.6 70 20 150/66 93.6 91 05/21 0541 36.6 60 16 127/64 84.9 90 0410 0700 05/20 2300 05/20 1500 Intake Total 120 Output Total 1570 Balance -1450 Intake, Oral 120 Number Voids 1 Output, 1570 Hemodialysis Current Medications Sig/Tatum Start time Last Medication Dose Route Stop Time Status Admin Collagenase 1 APPLIC DAILY 05/22 899 AC TOPICAL 06/21 0859 Cefepime HCl 1 GM Q12H 05/21 2099 AC 05/21 Sodium Chloride 10 ML IV 06/04 205 2144 Vancomycin HCl 1,500 MG ONCE ONE [...] 2058 2141 Triamcinolone 40 MG PROCEDURE 05/20 1944 CKD Acetonide IM 06/20 1943 Aspirin 81 MG DAILY 05/20 899 AC 05/21 PO 06/19 1300 1016 Clopidogrel Bisulfate 75 MG DAILY 05/20 899 A C 05/21 PO 06/19 1300 1016 Furosemide 40 [...] TID PRN PRN 05/20 844 AC SL 05/09 0844 Heparin Sodium 5,000 UNIT Q8H 05/19 [...] bowel sounds, soft Extremities: Extremities: RT AKA Neuro/ELECTRICAL CONTROLS TECHNICIAN: alert, oriented x 3 Skin: dry, normal [...] of care: -Continue with comprehensive inpatient rehabil[facility] rehab team -Pain control -Fall precaution -DVT prophylaxis subcu heparin -GI prophylaxis patient currently on Protonix -Pain control as pain management -Seizure precaution patient on Keppra -Continues present medications -Monitor labs -Plan of care discussed with the patient, galina marcano nurse, and Dr. Cavazos. Danny Cavazos 05/24/20 4663: Attestations Physician Attestation Agree w/findings plan: I agree with the findings and plan as documented by JOSE Meek. Plan of care coordinated with JOSE Meek. Pertinent labs, Imaging, and skin care consultant evaluations reviewed. 74-year-old male was admitted [...] NP on 0 05/23/20 at 0818 RPT #:[id number] END OF REPORT 2020-05-21 22:41:00-00:00 [facility] REPORT#:[id number] REPORT STATUS: Signed DATE:05/21/20 TIME: 2240 PATIENT: DARIEN GROSSMAN UNIT #: [id number] ROOM/BED: [place] [address] : 45 AGE: 74 SEX: M ATTEND: Sekou Curtis MD ADM AUTHOR: Javier Meek 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 * ALL edits or amendments must be made on the [employer] document * Javier Meek 05/21/202240: Subjective Chief Complaint: Right AKA Impaired functional [...] Objective General VS/I O: Laboratory Tests 05/21 04 0550 0535 Chemistry Sodium (134 - 147 [...] - 32.0 %) 9.4 L 7.0 L Rutherford % (Auto) (4.8 - 9.0 %) 10.2 H 10.3 H Eos % (Auto) (0.3 - 3.7 %) 5.2 H 6.9 H Baso % (Auto) (0.0 - 2.0 %) 0.3 0.2 Neut # (Auto) (2.0 - 7.6 x10 3/uL) 9.13 H 9.64 H Lymph # (Auto) (1.0 - 3.8 x10 3/uL) 1.16 0.90 L Rutherford # (Auto) (0.1 - 0.8 x10 3/uL) [...] 0859 Cefepime HCl 1 GM Q12H 05/21 2099 AC 05/21 Sodium Chloride 10 ML IV 06/04 2058 214 Vancomycin HCl 1,500 MG ONCE ONE 05/21 [...] 05/20 2099 AC 0 05/21 PO 06/19 Triamcinolone 40 MG PROCEDURE 05/20 [...] BID 05/19 2100 AC PO 06/19 1300 214 Trazodone HCl 150 MG BEDTIME 05/19 2100 [...] Temp 37.0 05/21 190 Pulse 67 05/21 1906 Resp 18 05/21 190 24 hour I O ending at [...] bowel sounds, soft Extremities: Extremities: RT AKA Neuro/ELECTRICAL CONTROLS TECHNICIAN: alert, oriented x 3 Skin: dry, normal [...] of care: -Continue with comprehensive inpatient rehabilit [facility] rehab team -Pain control -Fall precaution -DVT prophylaxis subcu heparin -GI prophylaxis patient currently on Protonix -Pain control as pain management -Seizure precaution patient on Keppra -Continues present medications -Monitor labs -Plan of care discussed with the patient, galina palma's nurse, and Dr. Cavazos. Danny Cavazos 05/24/20 2358: Attestations Physician Attestation Agree w/findings plan: I agree with the findings and plan as documented by JOSE Meek. Plan of care coordinated with JOSE Meek. Pertinent labs, Imaging, and skin care consultant evaluations reviewed. 74-year-old male was admitted [...] Danny Keith MD 05/25/20 at 0100 RPT #:[id number] END OF REPORT 2020-05-21 20:34:00-00:00 [id number] [address] PATIENT NAME: DARIEN GROSSMAN ADMIT DATE: 05/19/20 ACCOUNT NO: [id number] ROOM NO: [facility] AGE: 74 REPORT TYPE: CONSULTATION REPORT SEX: [...] right above-knee amputation in 03/2020, admitted to [facility] from outside facility due to a fal l resulting in subdural hematoma. The patient was seen by neurosurgery, recommended no surgical intervention. He was seen by fan engine engineer for ma nagement of dialysis. The patient [...] elderly woman, who is sitting in the [facility] r trying to eat his lunch. VITAL [...] By: Zee Ramirez MD WT: CON:YONATAN/NANDA/LATHA Conf#: [id number]/DID#: [id number] Authenticated by Zee Ramirez MD On 07:57:00 PM at 1957 PATIENT NAME: DARIEN GROSSMAN 2020-05-21 17:27:00-00:[address] [facility] ([facility]) Wound Care Progress Note REPORT#:[id number] REPORT STATUS: Signed DATE:05/21/20 TIME: 1727 PATIENT: DARIEN GROSSMAN UNIT #: [id number] ROOM/BED: [place] [address] : 45 AGE: 74 SEX: M ATTEND: Rosa Curtis MD ADM AUTHOR: Janice Oliva NP * ALL edits or amendments must be made on the [employer]/computer document * Subjective Comments: Wound care consult: [...] busPIRone (BUSPAR) 10 MG PO BEDTIME 05/13/20 0 05/19/20 Strength: 10 MG TAB 1443 2255 HYDROcodone/APAP 1 TAB PO 05/13/20 05/19/20 (NORCO 10/325) Q6H PRN PRN PAIN 1443 2255 Strength: 10 MG-325 MG TAB ZOLPIDEM (AMBIEN) 10 MG PO 04/02/21 04/08/21 Strength: 10 MG TAB BEDTIME PRN 1444 2255 INSOMNIA GABAPENTIN (NEURONTIN) 300 MG PO BEDTIME 05/1305/19/20 Strength: 300 MG CAP 1445 2255 DESVENLAFAXINE [...] HCl 75 MG DAILY 05/20 899 AC 9 (Effexor XR 37.5 mg) PO 06/19 1300 1013 Acetaminophen 650 MG Q6H PRN PRN 05/20 0845 AC (TYLENOL) PO 06/19 0844 Buspirone HCl 10 MG BEDTIME 05/19 2099 AC 05/19 (BUSPAR) PO 06/19 1300 2147 Gabapentin 300 MG BEDTIME 05/19 2100 AC 05/19 (NEURONTIN) PO 06/19 1300 2148 [...] Ox 93 05/21 1643 B/P 132/66 05/21 1643 B/P Mean 88.3 05/21 1643 Temp 37.3 05/21 164 Pulse 69 05/21 [...] HCl 10 MG BEDTIME 05/20 2099 AC 05/20 PO 06/19 2058 2232 Triamcinolone 40 MG PROCEDURE 05/20 1944 CKD [...] Gabapentin 300 MG BEDTIME 05/19 2099 AC 05/20 PO 06/19 1300 2234 Levetiracetam 500 MG Q12HR 05/19 2099 DC 05/20 PO 05/21 0600 223 Metoprolol Tartrate 25 MG BID 05/19 2099 AC PO 06/19 1300 1016 Trazodone HCl 150 MG BEDTIME 05/19 2099 AC 9 PO 06/19 1300 223 Hydrocodone Bitart/ 1 TAB Q4H PRN PRN [...] (Auto) (14.0 - 32.0 %) 9.4 L Rutherford % (Auto) (4.8 - 9.0 %) 10.2 H Eos % (Auto) (0.3 - 3.7 %) 5.2 H Baso % (Auto) (0.0 - 2.0 %) 0.3 Neut # (Auto) (2.0 - 7.6 x10 3/uL) 9.13 H Lymph # (Auto) (1.0 - 3.8 x10 3/uL) 1.16 Rutherford # (Auto) (0.1 - 0.8 x10 3/uL) [...] studies were reviewed. I agree with the PA/CALCINE 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's findings, exam, and plan. Electronically Signed by Janice Oliva NP o n 05/21/20 at 1745 RPT #:[id number] END OF REPORT 2020-05-21 17:27:00-00:00 [facility] ([facility]) Wound Care Progress Note REPORT#:[id number] REPORT STATUS: Signed DATE:05/21/20 TIME: 1726 PATIENT: DARIEN GROSSMAN UNIT #: [id number] ROOM/BED: [place] [address] : 45 AGE: 74 SEX: M ATTEND: Rosa Curtis MD ADM AUTHOR: Janice Oliva NP * ALL edits or amendments must be made on the [employer]/computer document * Janice Oliva 05/21/201726: Subjective Comments: [...] 05/20 2100 AC 0 05/20 PO 06/19 2058 2232 Triamcinolone 40 MG PROCEDURE 05/20 1944 CKD [...] Gabapentin 300 MG BEDTIME 05/19 2099 AC 05/20 PO 06/19 1300 2234 Levetiracetam [...] (Auto) (14.0 - 32.0 %) 9.4 L Rutherford % (Auto) (4.8 - 9.0 %) 10.2 H Eos % (Auto) (0.3 - 3.7 %) 5.2 H Baso % (Auto) (0.0 - 2.0 %) 0.3 Neut # (Auto) (2.0 - 7.6 x10 3/uL) 9.13 H Lymph # (Auto) (1.0 - 3.8 x10 3/uL) 1.16 Rutherford # (Auto) (0.1 - 0.8 x10 3/uL) [...] studies were reviewed. I agree with the PA/CALCINE 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's findings, exam, and plan. Shaila Gilbert T 05/23/20 0906: Diagnosis, Assessment Plan Additional comments: I have personally interviewed and examined the p atient. All charts, labs, and imaging studies were reviewed. I agree with the PA/CALCINE 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's findings, exam, and plan. Wound dehiscence w surgical site infection - cul tures pending; On Vanc,, Cefepime per ID. Silver algisite to incision for now. Electronically Signed by Janice Oliva NP o n 05/21/20 at 1745 RPT #:[id number] END OF REPORT 2020-05-21 17:27:00-00:00 [facility] Wound Care Progress Note REPORT#:[id number] REPORT STATUS: Signed DATE:05/21/20 TIME: 1726 PATIENT: DARIEN GROSSMAN UNIT #: [id number] ROOM/BED: [place] [address] : 45 AGE: 74 SEX: M ATTEND: Rosa Curtis MD ADM AUTHOR: Janice Oliva NP * ALL edits or amendments must be made on the [employer]/computer document * Janice Oliva 05/21/20 172: Subjective Comments: Wound care consult: This is [...] 2255 FUROSEMIDE (LASIX) 40 MG PO DAILY 05/13/2021 Strength: 40 MG TAB 1447 2255 METOPROLOL [...] 4,000 UNIT TuThSa@2100 05/19 2099 CKD 05/19 (RETACRIT) SUBQ 06/19 1300 2302 [...] Ox 93 05/21 1643 B/P 132/66 05/21 1643 B/P Mean 88.3 [...] 05/20 2100 AC 0 05/20 PO 06/19 2058 2232 Triamcinolone 40 MG PROCEDURE 05/20 1944 CKD [...] UNIT Q8H 05/190 AC SUBQ 06/19 1300 0534 Buspirone HCl [...] (Auto) (14.0 - 32.0 %) 9.4 L Rutherford % (Auto) (4.8 - 9.0 %) 10.2 H Eos % (Auto) (0.3 - 3.7 %) 5.2 H Baso % (Auto) (0.0 - 2.0 %) 0.3 Neut # (Auto) (2.0 - 7.6 x10 3/uL) 9.13 H Lymph # (Auto) (1.0 - 3.8 x10 3/uL) 1.16 Rutherford # (Auto) (0.1 - 0.8 x10 3/uL) [...] studies were reviewed. I agree with the PA/CALCINE 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's findings, exam, and plan. Shaila Gilbert 05/23/20 0906: Diagnosis, Assessment Plan Additional comments: I have personally interviewed and examined the p atient. All charts, labs, and imaging studies were reviewed. I agree with the PA/CALCINE 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's findings, exam, and plan. Wound dehiscence w surgical site infection - cul tures pending; On Vanc,, Cefepime per ID. Silver algisite to incision for now. Electronically Signed by Janice Oliva CALCINE 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 o n 05/21/20 at 1745 at 0908 [facility] #:[id number] END OF REPORT 2020-05-21 16:41:00-00:[address] [facility] ([facility] Nephrology Progress Note REPORT#:[id number] REPORT STATUS: Signed DATE:05/21/20 TIME: 1641 PATIENT: DARIEN GROSSMAN UNIT #: [id number] ROOM/BED: [place] [address] : 45 AGE: 74 SEX: M ATTEND: Rosa Curtis MD ADM AUTHOR: Merissa Dillon MD * ALL edits or amendments must be made on the [employer] document * Subjective Chief Complaint: Patient seen [...] (Auto) (14.0 - 32.0 %) 9.4 L Rutherford % (Auto) (4.8 - 9.0 %) 10.2 H Eos % (Auto) (0.3 - 3.7 %) 5.2 H Baso % (Auto) (0.0 - 2.0 %) 0.3 Neut # (Auto) (2.0 - 7.6 x10 3/uL) 9.13 H Lymph # (Auto) (1.0 - 3.8 x10 3/uL) 1.16 Rutherford # (Auto) (0.1 - 0.8 x10 3/uL) [...] been stable. -Rehab f/u. at 1642 RPT #:[id number] END OF REPORT 2020-05-21 11:58:00-00:00 [facility] ([facility]) Pharmacy Prog.Note-Vancomycin REPORT#:[id number] REPORT STATUS: Signed DATE:05/21/20 TIME: 1158 PATIENT: DARIEN GROSSMAN UNIT #: [id number] ROOM/BED: [place] [address] : 45 AGE: 74 SEX: M ATTEND: Rosa Curtis MD ADM AUTHOR: Jany Vargas [facility] * ALL edits or amendments must be made on the [employer]/computer document * Vancomycin Vancomycin Goal trough: 19-25 mcg/mL (pre-HD) Indication for treatment: SSTI Current therapy: New start Day of therapy: Weight: Actual weight (kg): 78 VS and I/O: Vital Signs Date Temp Pulse Resp B/P B/P Mean Pulse Ox FiO2 05/19-05/21 97.3-98.6 60-78 14-20 111-158/57-73 75.2-101.3 90-96 72 hours ending at 0700 05/21 0700 05/20 1900 05/20 0600 05/19 1900 05/18 0700 1900 Intake 120 120 Total Output 1570 Total Balance -1450 120 Intake, 120 120 Oral Number 1 1 Voids Output, 1570 Hemodialys is Patient 77.909 kg Weight Weight Bed scale Measuremen t Method 72 Hour I O Total 05/21 0705/20 0700 05/19 0700 Intake Total 120 120 Output Total 1570 Balance -1450 120 Labs: Laboratory Test : 05/21 0550 Chemistry BUN (7 - 18 mg/dL) 31 H Creatinine (0.6 - 1.3 mg/dL) 3.4 H Hematology WBC (4.5 - 11.0 x10 3/uL) 12.3 H Microbiology: 05/21 1143 WND OTHER: Gram Stain - ORD 05/21 0545 LEG: Wound Culture - RECD 05/20 05 NASAL: MRSA DNA Surveillance Screen - COMP [...] 5. Dosing Monitoring - Per discussion with RN Simona tello, patient will be going down for HD at 1300 today. S cheduled a one-time dose of vancomycin 1500mg IV to be given immediately post-HD today. Will plan to re-dose again post-HD on Saturday. Thank you for the consult. Pharmacy will continu e to follow. Electronically Signed by Jany Vargas [facility] on 12/01 at 1218 RPT #:[id number] END OF REPORT 2020-05-21 11:43:00-00:[address] [facility] ([facility]) Clinical Note REPORT#:[id number] REPORT STATUS: Signed DATE:05/21/20 TIME: 1143 PATIENT: DARIEN GROSSMAN UNIT #: [id number] ROOM/BED: [place] [address] : 45 AGE: 74 SEX: M ATTEND: Rosa Curtis MD ADM AUTHOR: Zee Ramirez MD * ALL edits or amendments must be made on the el [employer]/computer document * Clinical Note Note: pt seen ,examined,dictation to follow Electronically Signed by Zee Ramirez MD on at 5085 RPT #:[id number] END OF REPORT 2020-05-21 10:22:00-00:[address] [facility] ([facility]) Pain Management Progress Note REPORT#:[id number] REPORT STATUS: Signed DATE:05/21/20 TIME: 1022 PATIENT: DARIEN GROSSMAN UNIT #: [id number] ROOM/BED: [place] [address] : 45 AGE: 74 SEX: M ATTEND: Rosa Curtis MD ADM AUTHOR: Dusty Smiley CALCINE 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 * ALL edits or amendments must be made on the [employer]/Meu[employer] document * Subjective Chief complaint: Patient seen [...] Documented: Result Date Time Pulse Ox 91 05/22 0733 B/P 150/66 05/21 0833 B/P Mean 93.6 05/22 0733 Temp 97.9 05/21 0833 Pulse 70 05/21 [...] Extremities: moves all, no edema, pedal pulses Neuro/ELECTRICAL 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: Total Prescriptions 28 Total Private Pay 0 Total Prescribers 4 Total Pharmacies 1 05/06/2020 1 05/06/2020 HYDROCODONE-ACETAMIN 10- 325 MG 30.0 7 [facility] SPA [id number] [facility] (1602) 0 42.86 MME Comm Ins [place] 04/20/2020 1 12/24/2019 ZOLPIDEM TARTRATE 10 MG TABLET 30.0 30 PE LAT [id number] [facility] (1602) 4 Comm Ins [place] 03/21/2020 1 12/24/2019 ZOLPIDEM TARTRATE 10 MG TABLET 30.0 30 PE LAT [id number] [facility] (1602) 3 Comm Ins [place] 02/20/2020 1 12/24/2019 ZOLPIDEM TARTRATE 10 MG TABLET 30.0 30 PE LAT [id number] [facility] (1602) 2 Comm Ins [place] 01/21/2020 1 12/24/2019 ZOLPIDEM TARTRATE 10 MG TABLET 30.0 30 PE LAT [id number] [facility] (1602) 1 Comm Ins [place] 12/24/2019 1 12/24/2019 ZOLPIDEM TARTRATE 10 MG TABLET 30.0 30 PE LAT [id number] [facility] (1602) 0 [place] Ins [place] 11/25/2019 1 07/07/2019 ZOLPIDEM TARTRATE 10 MG TABLET 30.0 30 PE LAT [id number] [facility] (1602) 5 Comm Ins [place] [id number] ([id number]) [address] [address] at 1643 RPT #:[id number] END OF REPORT 2020-05-21 10:22[facility]-00[facility]00 [facility] REPORT#:[id number] REPORT STATUS: Signed DATE:05/21/20 TIME: 1022 PATIENT: DARIEN GROSSMAN UNIT #: [id number] ROOM/BED: [place] [address] : 45 AGE: 74 SEX: M ATTEND: Rosa Curtis MD ADM AUTHOR: Dusty Smiley NP * ALL edits or amendments must be made on the [employer]/computer document * Subjective Chief complaint: Patient seen [...] Extremities: moves all, no edema, pedal pulses Neuro/ELECTRICAL 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: Total Prescriptions 28 Total Private Pay 0 Total Prescribers 4 Total Pharmacies 1 05/06/2020 1 05/06/2020 HYDROCODONE-ACETAMIN 10- 325 MG 30.0 7 [facility] SPA [id number] [facility] (1602) 0 42.86 MME Comm Ins [place] 04/20/2020 1 12/24/2019 ZOLPIDEM TARTRATE 10 MG TABLET 30.0 30 PE LAT [id number] [facility] (1602) 4 Comm Ins [place] 03/21/2020 1 12/24/2019 ZOLPIDEM TARTRATE 10 MG TABLET 30.0 30 PE LAT [id number] [facility] (1602) 3 Comm Ins [place] 02/20/2020 1 12/24/2019 ZOLPIDEM TARTRATE 10 MG TABLET 30.0 30 PE LAT [id number] [facility] (1602) 2 Comm Ins [place] 01/21/2020 1 12/24/2019 ZOLPIDEM TARTRATE 10 MG TABLET 30.0 30 PE LAT [id number] [facility] (1602) 1 Comm Ins [place] 12/24/2019 1 12/24/2019 ZOLPIDEM TARTRATE 10 MG TABLET 30.0 30 PE LAT [id number] [facility] (1602) 0 Comm Ins [place] 11/25/2019 1 07/07/2019 ZOLPIDEM TARTRATE 10 MG TABLET 30.0 30 PE LAT [id number] [facility] (1602) 5 Comm Ins [id number] ([id number]) [address] [place] [address] at 1643 Electronically Signed by Herman Lofton MD on 0 05/22/20 at 1020 RPT #:[id number] END OF REPORT 2020-05-21 10:00:00-00:00 [facility]) Rehab Progress Note REPORT#:[id number] REPORT STATUS: Signed DATE:05/21/20 TIME: 1000 PATIENT: DARIEN GROSSMAN UNIT #: [id number] ROOM/BED: [place] [address] : 45 AGE: 74 SEX: M ATTEND: Rosa Curtis MD ADM AUTHOR: Sekou Curtis MD * ALL edits or amendments must be made on the [employer]/computer document * Subjective Chief complaint: Rehab follow-up Generalized weakness Doing well today Slightly tired at the therapy Slept well Right AKA wounds look better Working with therapist Eating fair Denies GUTIÉRREZ/N/V/D 14 systems reviewed and neg. except that [...] MOBILITY X 150'X3 W/ SBA. SIT TO GAS DISPENSER P BARS W/ SBA, SIT TO STAND AT RW W/ CGA. AMB W/ RW X 30' W/ SLOW CADANCE AND CGA. TRANSFERS BACK TO BE W/ MIN A USING STAND PIVOT TRANSFER. R RESIDUAL LIMB W/ INCREASED TACTILE SENSATIVITY, Pt EDUCATED O N DESENSITIZATION TECHNIQUES. THER EX TO B LE'S I N BED W/ SUES. EDUCATION ON REHAB PROCESS, FALL PREVENTI ON , USE OF BED AND CHAIR ALARMS. A: Pt PRESENTS WITH DECLINE IN GAIT AND MOBILIT Y, MILD CONFUSION, DECREASED SAFETY AWARENESS, FALLS, BALANCE DEFICITS. HE WILL BENEFIT FROM REHAB TO [facility] MOBILITY FOR SAFE RETURN HOME. P: CONT W/ [...] BED ALARM ON, ALL NEEDS IN REACH. CON' T SKILLED OT POC. - ST ASSESSMENT - [...] functional limits Cognition short term recall: Outside functional limits Cognition delayed recall: Outside functional limits Cognition insight: Outside functional limits Cognition basic problem solving: Within functio nal limits Cognition complex problem solving: Outside func tional limits Cognition safety: Outside functional limits Cognition social interaction: Within functional limits Cognition comment: PT COMPLETED THE MOCA W/A SC ORE OF , INDICATIVE OF MILD DEFICITS IN COGNITION. ON STRUCTURED ASSESSMENT, PT PRESENTED W/DEFICI TS IN ATTENTION, PARTICULARY SERIAL SUBTRACTION (ONLY INITIAL ITEM CORRECT 02/15). DEFICITS IN DELAYED RECALL ALSO NOTED, W/ [...] FOR AKA, WHICH IS STATED 04/03/20 IN [place] [facility] ; PT STATED 03/22/20. AGAIN CONSIDER POSSIBLE WORD RECAL SUBSTITUTION DEFICITS; HOWEVER COGNITION IS ALSO LIKELY A FACTOR. PER PHYSICAL THERAPY, PT STATED INITIALLY THAT HE LIVES W/HIS ; AND THEN LATER THAT HE DOES NOT HAV E A . PT WILL BENEFIT FROM ONOGING ASSESSMENT FOR HIG H LEVEL COGNITION AND IADLS, HE CURRENTLY MANAGES HI S BILLS AND PILLS AT HOME. VS SKILLS/EF WERE WFL ON THIS EVALUATION WHICH APPEARS TO BE A RELATIVE STRENGTH. 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 BUE 4/5, CLOTH BOOKER GOOD, RHF 3+/5, LLE 4/5. L calf NT, No cords. TTP L lateral thigh above trochanter bursae. Neuro/ELECTRICAL CONTROLS TECHNICIAN: alert, oriented X 3, CNII-XII intact, normal [...] (Auto) (14.0 - 32.0 %) 9.4 L Rutherford % (Auto) (4.8 - 9.0 %) 10.2 H Eos % (Auto) (0.3 - 3.7 %) 5.2 H Baso % (Auto) (0.0 - 2.0 %) 0.3 Neut # (Auto) (2.0 - 7.6 x10 3/uL) 9.13 H Lymph # (Auto) (1.0 - 3.8 x10 3/uL) 1.16 Rutherford # (Auto) (0.1 - 0.8 x10 3/uL) [...] - 0.1 x10 3/uL) 0. 00 Microbiology: 05/21 544 LEG: Wound Culture -pending [...] greater trochanteric bursitis-possible injection as per pain medical staff services manager-continue [place] and gabapentin -Left thigh pain, lateral femoral [...] nep hrology, pain management, ID, wound care -Kera for a total of 7 days-to be completed to efrain 05/21-completed -Continue right AKA incisional dressing care -Consult prosthetic company for evaluation -Continue aspirin and Plavix-Lasix -History of depression/anxiety continue BuSkala Desyrel -Monitor hemoglobin on Epogen -Hemodialysis as [...] X 150'X3 W/ SBA. S IT TO GAS DISPENSER P BARS W/ SBA, SIT TO STAND [...] examined by me personally. at 1331 RPT #:[id number] END OF REPORT 2020-05-21 02:55:00-00:00 [facility] ([facility]) Clinical Note REPORT#:[id number] REPORT STATUS: Signed DATE:05/21/20 TIME: 0255 PATIENT: DARIEN GROSSMAN UNIT #: [id number] ROOM/BED: [place] [address] : 45 AGE: 74 SEX: M ATTEND: Rosa Curtis MD ADM AUTHOR: Shaila Gilbert * ALL edits or amendments must be made on the [employer] document * Clinical Note Note: Patient not in room when I went to see himm this morning. Will attampt to see him later today or tomorrow. at 0256 RPT #:[id number] END OF REPORT 2020-05-20 17:56:00-00:00 [facility] Rehab Indiv Overall POC REPORT#:[id number] REPORT STATUS: Signed DATE:05/20/20 TIME: 1755 PATIENT: DARIEN GROSSMAN UNIT #: [id number] ROOM/BED: [place] [address] : 45 AGE: 74 SEX: M ATTEND: Rosa Curtis MD ADM AUTHOR: Sekou Curtis MD * ALL edits or amendments must be made on the [employer] document * Individualized Overall POC HPI Impairment [...] greater trochanteric bursitis-possible injection as per pain 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 intake, check albumin 3.2 and prealbumin, dietary consult, protein supplements. -Await consultants input, internal medicine, nep hrology, pain management, ID, wound care -Kera for a total of 7 days-to be completed to zuniga 05/21 -Continue right AKA incisional dressing care -Consult prosthetic [employer] for evaluation -Continue aspirin and Plavix-Lasix -History of depression/anxiety continue BuSkala Desyrel -Monitor hemoglobin on Epogen -Hemodialysis as [...] Picking up 6 object discharge goal: CARE [place] 50 feet 6 with two turns discharge goal: CARE [place] 150 6 feet discharge goal: CARE Toileting [...] is reasonable and necessary. at 0803 RPT #:[id number] END OF REPORT 2020-05-20 17:54:00-00:00 [facility] Nephrology Progress Note REPORT#:[id number] REPORT STATUS: Signed DATE:05/20/20 TIME: 1754 PATIENT: DARIEN GROSSMAN UNIT #: [id number] ROOM/BED: [place] [address] : 45 AGE: 74 SEX: M ATTEND: Rosa Curtis MD ADM AUTHOR: Merissa Dillon MD * ALL edits or amendments must be made on the [employer]/computer document * Subjective Chief Complaint: Patient seen and examined in dialysis. Access got infiltrated. Denies complaints Objective General VS/I O: Vital Signs: Date Time Temp Pulse Resp B/P B/P Pulse O2 O2 F low FiO2 Mean Ox Delivery Rate 05/21 1943 97.3 78 14 158/73 101.3 95 05/20 [...] MG BEDTIME PO Epoetin Donny-epbx 4,000 UNIT TuTIfeanyia@2100 SUBQ (C KD) Gabapentin 300 MG BEDTIME [...] Rt AKA Results Findings/Data: Laboratory Tests 05/20 0535 Chemistry Sodium (134 - 147 [...] (Auto) (14.0 - 32.0 %) 7.0 L Rutherford % (Auto) (4.8 - 9.0 %) 10.3 H Eos % (Auto) (0.3 - 3.7 %) 6.9 H Baso % (Auto) (0.0 - 2.0 %) 0.2 Neut # (Auto) (2.0 - 7.6 x10 3/uL) 9.64 H Lymph # (Auto) (1.0 - 3.8 x10 3/uL) 0.90 L Rutherford # (Auto) (0.1 - 0.8 x10 3/uL) [...] been stable. -Rehab f/u. at 2305 RPT #:[id number] END OF REPORT 2020-05-20 16:08:00-00:[address] [facility] ([facility]) Clinical Note REPORT#:[id number] REPORT STATUS: Signed DATE:05/20/20 TIME: 1608 PATIENT: DARIEN GROSSMAN UNIT #: [id number] ROOM/BED: [place] [address] : 45 AGE: 74 SEX: M ATTEND: Rosa Curtis MD ADM AUTHOR: Danny Keith MD * ALL edits or amendments must be made on the [employer] document * Clinical Note Note: 74-year-old male [...] Signed by Danny Keith MD 05/24/20 at 1406 RPT #:[id number] END OF REPORT 2020-05-20 14:26:00-00:[address] [facility] ([facility]) History Physical - Adult REPORT#:[id number] REPORT STATUS: Signed DATE:05/20/20 TIME: 1426 PATIENT: DARIEN GROSSMAN UNIT #: [id number] ROOM/BED: [place] [address] : 45 AGE: 74 SEX: M ATTEND: Rosa Curtis MD ADM AUTHOR: Javier Meek NP * ALL edits or amendments must be made on the [employer]/computer document * History of Present Illness HPI HPI: 74-year-old male with past medical history of co ronary artery disease status post PCI, end-stage renal disease, hyperlipidemi a, recent right AKA who was admitted to inpatient rehab improved to [facility] after a fall in rehab facility on [...] O2 Flow FiO2 Mean Ox Delivery Rate 05/20 0758 [...] decreased range of motion, moves al l Neuro/[employer] TECHNICIAN: alert, oriented X 3, normal speech Skin: [...] (Auto) (14.0 - 32.0 %) 7.0 L Rutherford % (Auto) (4.8 - 9.0 %) 10.3 H Eos % (Auto) (0.3 - 3.7 %) 6.9 H Baso % (Auto) (0.0 - 2.0 %) 0.2 Neut # (Auto) (2.0 - 7.6 x10 3/uL) 9.64 H Lymph # (Auto) (1.0 - 3.8 x10 3/uL) 0.90 L Rutherford # (Auto) (0.1 - 0.8 x10 3/uL) [...] (0.0 - 0.1 x10 3/uL) 0. 00 Radiology data: Laboratory Tests 05/20/2035: [Embedded Image Not Available] Laboratory Tests 05/20 [...] (Auto) (14.0 - 32.0 %) 7.0 L Rutherford % (Auto) (4.8 - 9.0 %) 10.3 H Eos % (Auto) (0.3 - 3.7 %) 6.9 H Baso % (Auto) (0.0 - 2.0 %) 0.2 Neut # (Auto) (2.0 - 7.6 x10 3/uL) 9.64 H Lymph # (Auto) (1.0 - 3.8 x10 3/uL) 0.90 L Rutherford # (Auto) (0.1 - 0.8 x10 3/uL) [...] PRN PRN 05/20 0845 A C PO 06/20 0744 Ondansetron HCl 4 MG TID PRN PRN 05/20 844 AC SL 06/20 0744 Heparin Sodium 5,000 UNIT Q8H 05/19 2200 AC SUBQ 06/19 1300 0526 Buspirone HCl 10 MG BEDTIME 05/19 2099 AC 04/0 8 PO 06/19 1300 2147 Epoetin Donny-epbx 4,000 UNIT TuThSa@2100 05/19 2100 CKD 04/08 SUBQ 06/19 1300 2302 Gabapentin 300 MG BEDTIME 05/19 2099 AC 05/19 PO 06/19 1300 2148 Levetiracetam 500 MG Q12HR 05/19 2099 AC 05/20 PO 05/21 0600 0952 Metoprolol Tartrate 25 MG BID 05/19 2099 AC PO 06/19 1300 0951 Trazodone HCl 150 MG BEDTIME 05/19 2099 AC 04/ 8 PO 06/19 1300 2148 Hydrocodone Bitart/ 1 TAB Q4H PRN PRN 05/19 20 15 AC 05/20 Acetaminophen PO 07/20 1300 1014 [...] of care: -Continue with comprehensive inpatient [facility]habil[facility] -Pain control -Fall precaution -DVT prophylaxis subcu heparin -GI prophylaxis patient currently on Protonix -Pain control as pain management -Seizure precaution patient on Keppra -Continues present medications -Monitor labs -Trend leukocytosis -Plan of care discussed with the patient, galina palma'pierre nurse, and Dr. Cavazos. We thank Dr. Curtis for allowing us t o participate in the care of Mr. Grossman Electronically Signed by Javier Meek NP on 0 05/22/20 at 0503 RPT #:[id number] END OF REPORT 2020-05-20 14:26:00-00:00 [facility] ([facility]) History Physical - Adult REPORT#:[id number] REPORT STATUS: Signed DATE:05/20/20 TIME: 6 PATIENT: DARIEN GROSSMAN UNIT #: [id number] ROOM/BED: [place] [address] : 45 AGE: 74 SEX: M ATTEND: Rosa Curtis MD ADM AUTHOR: Javier Meek CALCINE 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 * ALL edits or amendments must be made on the Share[employer]/computer document * See Addendum History of Present [...] decreased range of motion, moves al l Neuro/ELECTRICAL CONTROLS TECHNICIAN: alert, oriented X 3, normal speech Skin: dry, intact Psychiatry: normal affect, normal judgment/insig ht, normal mood Results Findings/Data: Laboratory Tests: 05/20 05 Chemistry Sodium (134 - 147 mEq/L) 134 [...] (Auto) (14.0 - 32.0 %) 7.0 L Rutherford % (Auto) (4.8 - 9.0 %) 10.3 H Eos % (Auto) (0.3 - 3.7 %) 6.9 H Baso % (Auto) (0.0 - 2.0 %) 0.2 Neut # (Auto) (2.0 - 7.6 x10 3/uL) 9.64 H Lymph # (Auto) (1.0 - 3.8 x10 3/uL) 0.90 L Rutherford # (Auto) (0.1 - 0.8 x10 3/uL) [...] (Auto) (14.0 - 32.0 %) 7.0 L Rutherford % (Auto) (4.8 - 9.0 %) 10.3 H Eos % (Auto) (0.3 - 3.7 %) 6.9 H Baso % (Auto) (0.0 - 2.0 %) 0.2 Neut # (Auto) (2.0 - 7.6 x10 3/uL) 9.64 H Lymph # (Auto) (1.0 - 3.8 x10 3/uL) 0.90 L Rutherford # (Auto) (0.1 - 0.8 x10 3/uL) [...] PRN 05/20 844 AC PO 06/20 0744 Ondansetron HCl 4 MG TID PRN PRN 05/21 0745 AC SL 06/20 0744 Heparin Sodium 5,000 UNIT Q8H 05/19 2200 [...] of care: -Continue with comprehensive inpatient rehabil[facility] rehab team -Pain control -Fall precaution -DVT prophylaxis subcu heparin -GI prophylaxis patient currently on Protonix -Pain control as pain management -Seizure precaution patient on Keppra -Continues present medications -Monitor labs -Trend leukocytosis -Plan of care discussed with the patient, galina palma'pierre nurse, and Dr. Cavazos. We thank Dr. Curtis for allowing us t o participate in the care of Mr. Grossman Electronically Signed by Javier Meek NP on 0 05/22/20 at 0503 Addendum 1: 05/22/20 0503 by Javier Meek NP Please correct this is a consultation note and H P Electronically Signed by Javier Meek NP on 0 05/22/20 at 0503 RPT #:[id number] END OF REPORT 2020-05-20 14:26:00-00:[address] [facility] ([facility]) History Physical - Adult REPORT#:[id number] REPORT STATUS: Signed DATE:05/20/20 TIME: 1425 PATIENT: DARIEN GROSSMAN UNIT #: [id number] ROOM/BED: [place] [address] : 45 AGE: 74 SEX: M ATTEND: Rosa Curtis MD ADM AUTHOR: Javier Meek CALCINE 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 * ALL edits or amendments must be made on the ShareGro[employer]/Meuug[employer] document * See Addendum Javier Meek 05/20/201425: History of Present Illness HPI HPI: 74-year-old male with past medical history of co ronary artery disease status post PCI, end-stage renal disease, hyperlipidemi a, recent right AKA who was admitted to inpatient rehab improved to [facility] Mercedes castellanos after a fall in rehab [...] O2 Flow FiO2 Mean Ox Delivery Rate 05/20 0758 [...] decreased range of motion, moves al l Neuro/ELECTRICAL CONTROLS TECHNICIAN: alert, oriented X 3, normal speech Skin: dry, intact Psychiatry: normal affect, normal judgment/insig ht, normal mood Results Findings/Data: Laboratory Tests: 05/20 534 Chemistry [...] (Auto) (14.0 - 32.0 %) 7.0 L Rutherford % (Auto) (4.8 - 9.0 %) 10.3 H Eos % (Auto) (0.3 - 3.7 %) 6.9 H Baso % (Auto) (0.0 - 2.0 %) 0.2 Neut # (Auto) (2.0 - 7.6 x10 3/uL) 9.64 H Lymph # (Auto) (1.0 - 3.8 x10 3/uL) 0.90 L Rutherford # (Auto) (0.1 - 0.8 x10 3/uL) [...] (Auto) (14.0 - 32.0 %) 7.0 L Rutherford % (Auto) (4.8 - 9.0 %) 10.3 H Eos % (Auto) (0.3 - 3.7 %) 6.9 H Baso % (Auto) (0.0 - 2.0 %) 0.2 Neut # (Auto) (2.0 - 7.6 x10 3/uL) 9.64 H Lymph # (Auto) (1.0 - 3.8 x10 3/uL) 0.90 L Rutherford # (Auto) (0.1 - 0.8 x10 3/uL) [...] of care: -Continue with comprehensive inpatient [facility]habil[facility] team -Pain control -Fall precaution -DVT prophylaxis subcu heparin -GI prophylaxis patient currently on Protonix -Pain control as pain management -Seizure precaution patient on Keppra -Continues present medications -Monitor labs -Trend leukocytosis -Plan of care discussed with the patient, galina marcano nurse, and Dr. Cavazos. We thank Dr. Curtis for allowing us t o participate in the care of Danny Samaniego 05/23/202130: Attestations Physician Attestation Agree w/findings plan: I agree with the findings and plan as documented by JOSE Meek. Plan of care coordinated with JOSE Meek. Pertinent labs, Imaging, and skin care consultant evaluations reviewed. 74-year-old male was admitted [...] NP on 0 05/22/20 at 0503 RPT #:[id number] END OF REPORT 2020-05-20 14:26:00-00:00 [facility] ([facility]) History Physical - Adult REPORT#:[id number] REPORT STATUS: Signed DATE:05/20/20 TIME: 1425 PATIENT: DARIEN GROSSMAN UNIT #: [id number] ROOM/BED: [place] [address] : 45 AGE: 74 SEX: M ATTEND: Rosa Curtis MD ADM AUTHOR: Javier Meek CALCINE 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 * ALL edits or amendments must be made on the ShareGrove/computer document * See Addendum Javier Meek 05/20/20 142: History of Present Illness HPI HPI: 74-year-old [...] decreased range of motion, moves al l Neuro/ELECTRICAL CONTROLS TECHNICIAN: alert, oriented X 3, normal speech Skin: [...] (Auto) (14.0 - 32.0 %) 7.0 L Rutherford % (Auto) (4.8 - 9.0 %) 10.3 H Eos % (Auto) (0.3 - 3.7 %) 6.9 H Baso % (Auto) (0.0 - 2.0 %) 0.2 Neut # (Auto) (2.0 - 7.6 x10 3/uL) 9.64 H Lymph # (Auto) (1.0 - 3.8 x10 3/uL) 0.90 L Rutherford # (Auto) (0.1 - 0.8 x10 3/uL) [...] (Auto) (14.0 - 32.0 %) 7.0 L Rutherford % (Auto) (4.8 - 9.0 %) 10.3 H Eos % (Auto) (0.3 - 3.7 %) 6.9 H Baso % (Auto) (0.0 - 2.0 %) 0.2 Neut # (Auto) (2.0 - 7.6 x10 3/uL) 9.64 H Lymph # (Auto) (1.0 - 3.8 x10 3/uL) 0.90 L Rutherford # (Auto) (0.1 - 0.8 x10 3/uL) [...] Surveillance Screen - COMP NASAL Microbiology: 05/20 123 LEG: Wound Culture - ORD 05/20 529 [...] HCl 75 MG DAILY 05/20 899 AC 9 PO 06/19 1300 1013 Acetaminophen 650 MG Q6H PRN PRN 05/20 844 AC PO 06/19 0844 Hydralazine HCl 10 MG Q6H PRN PRN 05/20 844 AC PO 06/19 0844 Ondansetron HCl 4 MG TID PRN PRN 05/21 0745 AC SL 06/19 0844 Heparin Sodium 5,000 UNIT Q8H 05/19 2199 AC SUBQ 06/19 1300 0526 Buspirone HCl [...] HCl 150 MG BEDTIME 05/19 2100 AC / PO 06/19 1300 2148 Hydrocodone Bitart/ 1 TAB Q4H PRN PRN 05/19 201 5 AC 05/20 Acetaminophen PO 07/20 1300 1014 Zolpidem Tartrate 5 MG BEDTIME PRN PRN 05/19 20 00 AC / PO 06/19 1300 2148 Diagnosis, Assessment Plan [...] of care: -Continue with comprehensive inpatient [facility] -Pain control -Fall precaution -DVT [...] with JOSE Meek. Pertinent labs, Imaging, and skin care consultant evaluations reviewed. 74-year-old male was admitted [...] MD 05/24/20 at 2123 Addendum 1: 05/22/20 0503 by Javier Meek NP Please correct this is a consultation note and H P Electronically Signed by Javier Meek NP on 0 05/22/20 at 0503 RPT #:[id number] END OF REPORT 2020-05-20 13:03:00-00:00 [facility] ([facility]) Pain Management Consult Note REPORT#:[id number] REPORT STATUS: Signed DATE:05/20/20 TIME: 1303 PATIENT: DARIEN GROSSMAN UNIT #: [id number] ROOM/BED: [place] [address] : 45 AGE: 74 SEX: M ATTEND: Rosa Curtis MD ADM AUTHOR: Dusty Smiley NP * ALL edits or amendments must be made on the ShareGrove/computer document * History of Present Illness Primary [...] Ox 93 05/20 757 B/P 126/68 05/20 757 B/P Mean 87.0 [...] cyanosis, right AKA, TTP over lateral thigh Neuro/ELECTRICAL CONTROLS TECHNICIAN: alert, oriented X 3, normal speech, C LACY-XII grossly intact Skin: no rash Psychiatry: normal judgement/insight Spine Lumbar: normal inspection Results Findings/data: Laboratory Tests: 05/20 0535 Chemistry Sodium (134 [...] (Auto) (14.0 - 32.0 %) 7.0 L Rutherford % (Auto) (4.8 - 9.0 %) 10.3 H Eos % (Auto) (0.3 - 3.7 %) 6.9 H Baso % (Auto) (0.0 - 2.0 %) 0.2 Neut # (Auto) (2.0 - 7.6 x10 3/uL) 9.64 H Lymph # (Auto) (1.0 - 3.8 x10 3/uL) 0.90 L Rutherford # (Auto) (0.1 - 0.8 x10 3/uL) [...] pain -Lidoderm patch to left thigh daily -[place] 10/325 mg oral every 4 hours as [...] Case discussed with Dr Lofton whom agrees. 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: Total Prescriptions 28 Total Private Pay 0 Total Prescribers 4 Total Pharmacies 1 05/06/2020 1 05/06/2020 HYDROCODONE-ACETAMIN 10- 325 MG 30.0 7 [facility] SPA [id number] [facility] (1602) 0 42.86 MME Comm Ins [place] 04/20/2020 1 12/24/2019 ZOLPIDEM TARTRATE 10 MG TABLET 30.0 30 PE LAT [id number] [facility] (1602) 4 Comm Ins [place] 03/21/2020 1 12/24/2019 ZOLPIDEM TARTRATE 10 MG TABLET 30.0 30 PE LAT [id number] [facility] (1602) 3 Comm Ins [place] 02/20/2020 1 12/24/2019 ZOLPIDEM TARTRATE 10 MG TABLET 30.0 30 PE LAT [id number] [facility] (1602) 2 Comm Ins [place] 01/21/2020 1 12/24/2019 ZOLPIDEM TARTRATE 10 MG TABLET 30.0 30 PE LAT [id number] [facility] (1602) 1 [place] 12/24/2019 1 12/24/2019 ZOLPIDEM TARTRATE 10 MG TABLET 30.0 30 PE LAT [id number] [facility] (1602) 0 Comm Ins [place] 11/25/2019 1 07/07/2019 ZOLPIDEM TARTRATE 10 MG TABLET 30.0 30 PE LAT [id number] [facility] (2512) 5 Comm Ins [place] [id number] ([id number]) [address] [place] [address] at 1941 RPT #:[id number] END OF REPORT 2020-05-20 13:03:00-00:[address] [facility] ([facility]) Pain Management Consult Note REPORT#:[id number] REPORT STATUS: Signed DATE:05/20/20 TIME: 1303 PATIENT: DARIEN GROSSMAN UNIT #: [id number] ROOM/BED: [place] [address] : 45 AGE: 74 SEX: M ATTEND: Rosa Curtis MD ADM AUTHOR: Dusty Smiley NP * ALL edits or amendments must be made on the ShareGrove/computer document * History of Present Illness Primary [...] 05/19 2099 AC 05/20 (KEPPRA) PO 05/21 06 0952 Trazodone HCl 150 MG BEDTIME 05/19 [...] B/P 126/68 05/20 0758 B/P Mean 87.0 05/208 Temp 98.6 05/20 0758 Pulse 67 05/20 0758 Resp 16 05/20 0758 O2 Delivery Room air 05/20 0005 24 [...] cyanosis, right AKA, TTP over lateral thigh Neuro/ELECTRICAL CONTROLS TECHNICIAN: alert, oriented X 3, normal speech, C LACY-XII grossly intact Skin: no rash Psychiatry: normal judgement/insight Spine Lumbar: normal inspection Results Findings/data: Laboratory Tests: 05/20 0535 Chemistry Sodium (134 [...] (Auto) (14.0 - 32.0 %) 7.0 L Rutherford % (Auto) (4.8 - 9.0 %) 10.3 H Eos % (Auto) (0.3 - 3.7 %) 6.9 H Baso % (Auto) (0.0 - 2.0 %) 0.2 Neut # (Auto) (2.0 - 7.6 x10 3/uL) 9.64 H Lymph # (Auto) (1.0 - 3.8 x10 3/uL) 0.90 L Rutherford # (Auto) (0.1 - 0.8 x10 3/uL) [...] pain -Lidoderm patch to left thigh daily -[place] 10/325 mg oral every 4 hours as [...] Case discussed with Dr Lofton whom agrees. 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: Total Prescriptions 28 Total Private Pay 0 Total Prescribers 4 Total Pharmacies 1 05/06/2020 1 05/06/2020 HYDROCODONE-ACETAMIN 10- 325 MG 30.0 7 [facility] SPA [id number] [facility] (1602) 0 42.86 MME Comm Ins [place] 04/20/2020 1 12/24/2019 ZOLPIDEM TARTRATE 10 MG TABLET 30.0 30 PE LAT [id number] [facility] (1602) 4 Comm Ins [place] 03/21/2020 1 12/24/2019 ZOLPIDEM TARTRATE 10 MG TABLET 30.0 30 PE LAT [id number] [facility] (1602) 3 Comm Ins [place] 02/20/2020 1 12/24/2019 ZOLPIDEM TARTRATE 10 MG TABLET 30.0 30 PE LAT [id number] [facility] (1602) 2 Comm Ins [place] 01/21/2020 1 12/24/2019 ZOLPIDEM TARTRATE 10 MG TABLET 30.0 30 PE LAT [id number] [facility] (1602) 1 [place] Ins [place] 12/24/2019 1 12/24/2019 ZOLPIDEM TARTRATE 10 MG TABLET 30.0 30 PE LAT [id number] [facility] (1602) 0 [place] Ins [place] 11/25/2019 1 07/07/2019 ZOLPIDEM TARTRATE 10 MG TABLET 30.0 30 PE LAT [id number] [facility] (1602) 5 Comm Ins [place] [facility] ([id number]) [address] [place] [address] at 1941 Electronically Signed by Herman Lofton MD on 0 05/22/20 at 1018 RPT #:[id number] END OF REPORT 2020-05-20 07:43:00-00:00 [facility] ([facility]) Rehab History Physical REPORT#:[id number] REPORT STATUS: Signed DATE:05/20/20 TIME: 07 PATIENT: DARIEN GROSSMAN UNIT #: [id number] ROOM/BED: [place] [address] : 45 AGE: 74 SEX: M ATTEND: Rosa Curtis MD ADM AUTHOR: Sekou Curtis MD * ALL edits or amendments must be made on the ShareGrove/computer document * HPI HPI Chief complaint: Generalized [...] home alone. On 03/15/2020 patient presented to [facility] ED from outside rehab facility s/p fall [...] WALKER FOR AMBULATION IN INPATIENT REHAB. PT GUTIÉRREZ S HAD 4 FALLS IN THE LAST [...] Documented: Result Date Time Pulse Ox 93 05/208 B/P 126/68 05/208 B/P Mean 87.0 05/208 Temp 98.6 05/208 Pulse 67 05/208 Resp 16 05/20 757 O2 Delivery Room air 05/20 0005 PATIENT [...] MMT moves all against gravity. BUE 4/5, CLOTH BOOKER GOOD, RHF 3+/5, LLE 4/5. L calf NT, No cords. TTP L lateral thigh above trochanter bursae. Neuro/ELECTRICAL CONTROLS TECHNICIAN: alert, oriented X 3, CNII-XII intact, normal speech, reflexes equal bilat Results Findings/Data: Laboratory Tests: 05/20 0535 Chemistry [...] (Auto) (14.0 - 32.0 %) 7.0 L Rutherford % (Auto) (4.8 - 9.0 %) 10.3 H Eos % (Auto) (0.3 - 3.7 %) 6.9 H Baso % (Auto) (0.0 - 2.0 %) 0.2 Neut # (Auto) (2.0 - 7.6 x10 3/uL) 9.64 H Lymph # (Auto) (1.0 - 3.8 x10 3/uL) 0.90 L Rutherford # (Auto) (0.1 - 0.8 x10 3/uL) [...] Surveillance Screen - RECD Exams: CPT Code: 896177057 CT HEAD/BRAIN W/O CONT 65385 STUDY: - CT HEAD/BRAIN W/O CONT 05/13/2020 5:00 A M Ordering Physician: Fausto Espino MD Patient Name: DARIEN GROSSMAN MR: [id number] : 1945; Age: 74 years y/o Male [...] scatter artifact. 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 Stable acute left parafalcine subdural hematoma extending into the left tentorium. Minimal left to right midline s hift is stable. SL: TPAINTER-H at 0429 * Free Text Obj Notes Free Text Obj Notes: Precautions: Fall Pre- Gait Mobility Y/N: Yes Safety addressed through use of: Gait Belt Verbal Cues Tactile Cues Gait Device ROLLING WALKER WC TO FOLLOW Vital Signs/Oxygen: No Weightbearing: No Restriction Ambulation Distance: 25'X 2 30' Progression: Forward Assistance Level: Supervision or Set-up Gait Deviations: Head Down HOPPING ON LEFT LE [facility] Mobility: No Document Pain/Education: No Advanced Progression: No Effects of Treatment: Balance Improved [place] of care decreased Post [place] Precautions: In Chair Call Light in Reach Review Plan of Care: Yes PT charges: Gait Training [id number] Gait Cmt: PATIENT IN WC UPON ARRIVAL [...] greater trochanteric bursitis-possible injection as per pain 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 intake, check albumin 3.2 and prealbumin, dietary consult, protein supplements. -Await consultants input, internal medicine, nep hrology, pain management, ID, wound care -[place] for a total of 7 days-to be [...] 05/21 -given patient's history of staph infection ginetteo r will consult ID. -Continue current medication [...] 0500 Active ALBUMIN 05/30 0500 Active PREALBUMIN 04/12 0500 Active ALBUMIN 05/23 0500 Active CBC W/AUTO DIFF 05/21 0400 Active RENAL DIET 05/20 B Active MRSA SCREEN SURV 05/20 0500 Active COMPREHENSIVE METABOLIC PANEL 05/20 0500 Comple te CBC W/AUTO DIFF 05/20 0500 Complete Turn patient 05/19 2142 Active SPEECH THERAPIST CONSULT 05/19 2142 Active Resuscitation Status + 05/19 2141 Active PHYSICIAN CONSULT 05/19 214 Active Information Only 05/19 182 Active REHAB NSG Reinforcement 05/19 1824 Active Notify Primary MD 05/19 182 Active MRSA Protocol 05/19 182 Active Intake Output 05/19 182 Active Fall Precautions 05/19 182 Active Bed Check 05/19 1824 Active Activity 05/19 182 Active COVID-19 Risk Assessment 05/19 1824 Active REHAB: Physical Therapy 05/19 1824 Active REHAB: Occupational Therapy 05/19 1824 Active Nephrology Physician Consult 05/19 1824 Active LEVEL OF CARE 05/19 182 Active ADMIT PATIENT (CPOE) 05/19 1824 Active Consultants: internal medicine, nephrology, pain management Plan discussed with: patient, consultants, nurse , interdisc care team Code Status/Resusc. Discussion Resuscitation discussion: Discussed with: patient Code status: full code at 1244 RPT #:[id number] END OF REPORT 2020-05-19 12:15:00-00:00 [facility] Rehab Progress Note REPORT#:[id number] REPORT STATUS: Signed DATE:05/19/20 TIME: 1215 PATIENT: DARIEN GROSSMAN UNIT #: [id number] ROOM/BED: [place] [address] : 45 AGE: 74 SEX: M ATTEND: Liliam Espino MD ADM AUTHOR: Sharon Dunaway * ALL edits or amendments must be made on the el [employer]/computer document * Subjective Chief complaint: Rehab follow-up C/o of amputatin site pain No new issues today OOB in w/c vistor at bedside states he had an episode of dizziness yesterday later afternoon when OOB to the restroom denies GUTIÉRREZ/dizziness Eating well Denies GUTIÉRREZ/N/V/D 14 systems reviewed and neg. except that above. Objective General VS: Vital Signs: Date Time Temp Pulse Resp B/P B/P Pulse O2 O2 F low FiO2 Mean Ox Delivery Rate 05/19 1150 98.2 53 16 113/61 77.9 97 Room air 05/19 0757 98.4 68 16 148/68 94.6 95 Room air 05/19 0613 67 147/68 94.3 05/19 0331 98.2 62 16 164/69 100.4 95 Room air 04/ 2240 98.1 57 16 127/64 84.8 96 Room air / 1940 99.0 72 16 137/65 89.0 95 Room air / 1643 99.0 74 18 149/75 99.7 95 [...] 3+/5. L calv e NT, NO cords. Neuro/ELECTRICAL CONTROLS TECHNICIAN: alert, oriented X 3, CNII-XII intact, normal [...] for SDH Tiered pain control Bowel program [facility] for a total of 7 days Continue [...] interdiscipl inary treatment plan. at 1219 RPT #:[id number] END OF REPORT 2020-05-19 11:06:00-00:00 [facility] ([facility]) Discharge Summary REPORT#:[id number] REPORT STATUS: Signed DATE:05/19/20 TIME: 1106 PATIENT: DARIEN GROSSMAN UNIT #: [id number] ROOM/BED: [place] [address] : 45 AGE: 74 SEX: M ATTEND: Liliam Espino MD ADM AUTHOR: Alfonso Sullivan NP * ALL edits or amendments must be made on the ShareGro[employer]/computer document * General Information Date of admission: [...] medical decisions, the y have elected [facility] Turnerll, contact number [phone], to make medical decisions f or them. [...] deformity right AK A noted R AKA Neuro/ELECTRICAL CONTROLS TECHNICIAN: alert, oriented X 3, no motor deficit [...] Marin Anderson Electronically Signed by Alfonso Sullivan NP on 10/01 at 1108 RPT #:[id number] END OF REPORT 2020-05-19 11:06:00-00:00 [facility] ([facility]) Discharge Summary REPORT#:[id number] REPORT STATUS: Signed DATE:05/19/20 TIME: 110 PATIENT: DARIEN GROSSMAN UNIT #: [id number] ROOM/BED: [place] [address] : 45 AGE: 74 SEX: M ATTEND: Liliam Espino MD ADM AUTHOR: Alfonso Sullivan CALCINE 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 * ALL edits or amendments must be made on the ShareGro[employer]/computer document * Alfonso Sullivan 05/19/20 1106: General [...] y have elected Marin Mixon, contact number [phone], to make medical decisions f or them. [...] Result Date Time Pulse Ox 95 05/19 075 B/P 148/68 05/19 0757 B/P Mean 94.6 05/19 0757 O2 Delivery Room air 05/19 075 Temp 36.9 05/19 0757 Pulse 68 05/19 0757 Resp 16 05/19 0757 O2 Flow Rate 0.0 05/13 1600 FiO2 98 /02 1200 24 hour I O ending at [...] deformity right AK A noted R AKA Neuro/ELECTRICAL CONTROLS TECHNICIAN: alert, oriented X 3, no motor deficit [...] w/findings plan: I was present with the CALCINE 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 during the history and examination. I discussed the case with the CALCINE 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 and agree w ith the findings and plan as documented in the CALCINE 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's note. Patient is doing okay, reports being ups et that IV pain medication was removed without his knowledge. 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 Pertinent imaging personally revi ewed. Discussed plan with other members of the [facility] are team. Tri Hoffmann MD Trauma/Acute Care Surgery Electronically Signed by Alfonso Sullivan CALCINE 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 on 10/01 at 1108 RPT #:[id number] END OF REPORT 2020-05-19 11:06:00-00:00 [facility] ([facility]) Discharge Summary REPORT#:[id number] REPORT STATUS: Signed DATE:05/19/20 TIME: 110 PATIENT: DARIEN GROSSMAN UNIT #: [id number] ROOM/BED: [place] [address] : 45 AGE: 74 SEX: M ATTEND: Liliam Espino MD ADM AUTHOR: Alfonso Sullivan NP * ALL edits or amendments must be made on the [employer]/computer document * Alfonso Sullivan 05/19/20 1106: General [...] y have elected [facility] Mixon, contact number [phone], to make medical decisions f or them. [...] Result Date Time Pulse Ox 95 05/19 075 B/P 148/68 05/19 075 B/P Mean 94.6 05/19 075 O2 Delivery Room air 05/19 075 Temp 36.9 05/19 075 Pulse 68 05/19 0757 Resp 16 05/19 075 O2 Flow Rate 0.0 05/13 1600 FiO2 98 / 1200 24 hour I O ending at [...] deformity right AK A noted R AKA Neuro/ELECTRICAL CONTROLS TECHNICIAN: alert, oriented X 3, no motor deficit [...] w/findings plan: I was present with the CALCINE 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 during the history and examination. I discussed the case with the CALCINE 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 and agree w ith the findings and plan as documented in the CALCINE 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's note. Patient is doing okay, reports being ups et that IV pain medication was removed without his knowledge. 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 Pertinent imaging personally revi ewed. Discussed plan with other members of the [facility] are team. Tri Hoffmann MD Trauma/Acute Care Surgery Electronically Signed by Alfonso Sullivan CALCINE 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 on 10/01 at 1108 Electronically Signed by Tri Hoffmann MD o n 05/19/20 at 1802 RPT #:[id number] END OF REPORT 2020-05-19 09:50:00-00:00 [facility] ([facility]) Rehab Preadmission Screen REPORT#: REPORT STATUS: DATE:05/19/20 TIME: 949 PATIENT: DARIEN GROSSMAN UNIT #: ROOM: BED: : 45 AGE: 74 SEX: M ATTEND: Rosa Curtis MD PROJECTED ADM AUTHOR: Georgi Curtis MD REP SRV REP SRV TM: 0950 * ALL edits or amendments must be made on the el [employer]/computer document * IRF Preadmission Screen Information From CRS PAS CRS PAS documentation: The data set between [...] contact name: Lida Kumar Referral contact number: [phone] Referring setting: Acute hospital IMPAIRMENT GROUP: Impairment [...] alone. On 03/15/2020 patient p [facility] to [facility] [facility] from outside rehab faci johanna s/p fall three days ago with CT [...] change: 05/17/20 Time of last dressing change: 2199 Dressing/reinforcement type: Gauze Document advanced wound measurements: [...] currently cleopatra rt and oriented he is Georgian speaking and sppech is clear. 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 Education history: Return [...] Grab bars location: Anticipated services upon di kashifrge: Home health, Occupational therapy, Physical therapy Barriers to discharge: None Options discussed with patient: Yes Options discussed with caregiver: Patient agrees with program requirements: Yes Primary support contact: Marin Talamantes Relationship to patient: friend-his office manag er Phone number 1: [phone] Phone number 2: Caregiver availability: will vary Caregiver can provide: Intermittent assistance Patient and caregiver goals and preferences: Steele s not want to fall anymore ACTIVTY TOLERANCE: Current treatment interventions: Occupational th erapy, Physical therapy Patient able to tolerate 3 hours of therapy a da y: Yes Patient able to tolerate 15 hours of therapy a w [facility]: Altered therapy schedule comment: ACUTE INPATIENT REHAB PLAN: Estimated length of stay in days: 14 Anticipated services in acute inpatient rehab: A dditional services, Rehab nursing 03/09, data science and iot manager, Occupational therapy , Physical therapy Additional services: Hemodialysis CRS ELECTRONIC SIGNATURE: CRS #1 electronic signature: Sonam Peguero CRS credentials: RN Date: 05/19/20 Time: 829 CRS #2 electronic signature: CRS credentials: Date: Time: CRS #3 electronic signature: CRS credentials: Date: Time: Provider Pre-Admit Summary Acute IP rehab admit: criteria met MD determination Based upon my evaluation and review of t he supporting assessment documentation and consultation with the pr eadmission specialty food products supervisor, I have determined, prior to admitting this [...] an intensive rehab therapy pro gram. at 0927 [facility] #:[id number] END OF REPORT 2020-05-18 17:55:00-00:[address] [facility] ([facility]) Nephrology Progress Note REPORT#:[id number] REPORT STATUS: Signed DATE:05/18/20 TIME: 1755 PATIENT: DARIEN GROSSMAN UNIT #: [id number] ROOM/BED: [place] [address] : 45 AGE: 74 SEX: M ATTEND: Liliam Espino MD ADM AUTHOR: Merissa Dillon MD * ALL edits or amendments must be made on the [employer] document * Subjective Chief Complaint: Seen and [...] sounds, soft Extremities: no edema, RT AKA Neuro/ELECTRICAL CONTROLS TECHNICIAN: alert, oriented X 3, normal speech Hemodialysis [...] (Auto) (14.0 - 32.0 %) 11.9 L Rutherford % (Auto) (4.8 - 9.0 %) 9.0 Eos % (Auto) (0.3 - 3.7 %) 12.6 H Baso % (Auto) (0.0 - 2.0 %) 0.2 Neut # (Auto) (2.0 - 7.6 x10 3/uL) 5.96 Lymph # (Auto) (1.0 - 3.8 x10 3/uL) 1.07 Rutherford # (Auto) (0.1 - 0.8 x10 3/uL) [...] (0.0 - 0.1 x10 3/uL) 0. 00 Diagnosis, Assessment Plan Free Text A P: [...] been stable. -Rehab f/u. at 2333 RPT #:[id number] END OF REPORT 2020-05-18 15:03:00-00:[address] [facility] ([facility]) Rehab Progress Note REPORT#:[id number] REPORT STATUS: Signed DATE:05/18/20 TIME: 1503 PATIENT: DAIREN GROSSMAN UNIT #: [id number] ROOM/BED: [place] [address] : 45 AGE: 74 SEX: M ATTEND: Liliam Espino MD ADM AUTHOR: Sharon Dunaway CALCINE 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 * ALL edits or amendments must be made on the [employer]/computer document * Subjective Chief complaint: Rehab follow-up C/o of amputatin site pain seen while on HD denies any new issues just feels a little tired today denies GUTIÉRREZ/dizziness Eating well Denies GUTIÉRREZ/N/V/D 14 systems reviewed and neg. except that [...] 61 12 154/61 92.2 95 Room air / 1556 98.4 66 20 135/66 89.0 95 [...] 3+/5. L calv e NT, NO cords. Neuro/ELECTRICAL CONTROLS TECHNICIAN: alert, oriented X 3, CNII-XII intact, normal speech Results Findings/Data: Laboratory Tests: 05/18 0805 Chemistry Sodium (134 - 147 [...] (Auto) (14.0 - 32.0 %) 11.9 L Rutherford % (Auto) (4.8 - 9.0 %) 9.0 Eos % (Auto) (0.3 - 3.7 %) 12.6 H Baso % (Auto) (0.0 - 2.0 %) 0.2 Neut # (Auto) (2.0 - 7.6 x10 3/uL) 5.96 Lymph # (Auto) (1.0 - 3.8 x10 3/uL) 1.07 Rutherford # (Auto) (0.1 - 0.8 x10 3/uL) [...] answered. Rehab attestation: . at 1507 RPT #:[id number] END OF REPORT 2020-05-18 13:37:00-00:00 [facility] Trauma Progress Note REPORT#:[id number] REPORT STATUS: Signed DATE:05/18/20 TIME: 1337 PATIENT: DARIEN GROSSMAN UNIT #: [id number] ROOM/BED: [place] [address] : 45 AGE: 74 SEX: M ATTEND: Liliam Espino MD ADM AUTHOR: Derick Clark * ALL edits or amendments must be made on the el [employer]/computer document * Subjective Chief Complaint: generalized weakness [...] deformity right AK A noted R AKA Neuro/ELECTRICAL CONTROLS TECHNICIAN: alert, oriented X 3, no motor deficit [...] (Auto) (14.0 - 32.0 %) 11.9 L Rutherford % (Auto) (4.8 - 9.0 %) 9.0 Eos % (Auto) (0.3 - 3.7 %) 12.6 H Baso % (Auto) (0.0 - 2.0 %) 0.2 Neut # (Auto) (2.0 - 7.6 x10 3/uL) 5.96 Lymph # (Auto) (1.0 - 3.8 x10 3/uL) 1.07 Rutherford # (Auto) (0.1 - 0.8 x10 3/uL) [...] diet Lines/Be/ETT (placement dates: PIV Consultants: Neurosurg ([facility]), Nephrology Procedures: n/a Plan: Pt was seen [...] y have elected Marin Mixon, contact number [phone], to make medical decisions f or them. [...] Derick Clark on 08/31 at 1340 RPT #:[id number] END OF REPORT 2020-05-18 13:37:00-00:00 [facility] ([facility]) Trauma Progress Note REPORT#:[id number] REPORT STATUS: Signed DATE:05/18/20 TIME: 1337 PATIENT: DARIEN GROSSMAN UNIT #: [id number] ROOM/BED: [place] [address] : 45 AGE: 74 SEX: M ATTEND: Liliam Espino MD ADM AUTHOR: Derick Clark * ALL edits or amendments must be made on the [employer]/computer document * Derick Clark Felix 05/18/20 1337: Subjective Chief Complaint: generalized weakness [...] deformity right AK A noted R AKA Neuro/ELECTRICAL CONTROLS TECHNICIAN: alert, oriented X 3, no motor deficit [...] (Auto) (14.0 - 32.0 %) 11.9 L Rutherford % (Auto) (4.8 - 9.0 %) 9.0 Eos % (Auto) (0.3 - 3.7 %) 12.6 H Baso % (Auto) (0.0 - 2.0 %) 0.2 Neut # (Auto) (2.0 - 7.6 x10 3/uL) 5.96 Lymph # (Auto) (1.0 - 3.8 x10 3/uL) 1.07 Rutherford # (Auto) (0.1 - 0.8 x10 3/uL) [...] 3/uL) 0. 00 Results: vital signs stable, tertiary exam perfo [...] y have elected Marin Mixon, contact number [phone], to make medical decisions f or them. [...] Derick Clark on 08/31 at 1340 RPT #:[id number] END OF REPORT 2020-05-18 13:37:00-00:00 [facility] ([facility]) Trauma Progress Note REPORT#:[id number] REPORT STATUS: Signed DATE:05/18/20 TIME: 1336 PATIENT: DARIEN GROSSMAN UNIT #: [id number] ROOM/BED: [place] [address] : 45 AGE: 74 SEX: M ATTEND: Liliam Espino MD ADM AUTHOR: Derick Clark PA * ALL edits or amendments must be made on the [employer]/computer document * Derick Clark 05/18/20 1337: Subjective [...] deformity right AK A noted R AKA Neuro/ELECTRICAL CONTROLS TECHNICIAN: alert, oriented X 3, no motor deficit [...] (Auto) (14.0 - 32.0 %) 11.9 L Rutherford % (Auto) (4.8 - 9.0 %) 9.0 Eos % (Auto) (0.3 - 3.7 %) 12.6 H Baso % (Auto) (0.0 - 2.0 %) 0.2 Neut # (Auto) (2.0 - 7.6 x10 3/uL) 5.96 Lymph # (Auto) (1.0 - 3.8 x10 3/uL) 1.07 Rutherford # (Auto) (0.1 - 0.8 x10 3/uL) [...] diet Lines/Be/ETT (placement dates: PIV Consultants: Neurosurg ([facility]), Nephrology Procedures: n/a Plan: Pt was seen [...] y have elected Marin Mixon, contact number [phone], to make medical decisions f or them. [...] Julian Balbuena MD on at 1512 RPT #:[id number] END OF REPORT 2020-05-17 15:17:00-00:[address] [facility] ([facility] Nephrology Progress Note REPORT#:[id number] REPORT STATUS: Signed DATE:05/17/20 TIME: 1517 PATIENT: DARIEN GROSSMAN UNIT #: [id number] ROOM/BED: [place] [address] : 45 AGE: 74 SEX: M ATTEND: Liliam Espino MD ADM AUTHOR: Merissa Dillon MD * ALL edits or amendments must be made on the [employer]/computer document * Subjective Chief Complaint: Seen and examined in HD. Reports feeling well to day. No new issues. Objective General VS/I O: Vital Signs: Date Time Temp Pulse Resp B/P B/P Pulse O2 O2 F low FiO2 Mean Ox Delivery Rate 05/17 2016 98.4 61 12 154/61 92.2 95 Room air 04/06 1556 98.4 66 20 135/66 89.0 95 Room air / 1202 98.1 55 20 115/48 70.2 95 Room air 04/ 0950 98.0 / 0815 71 15 136/66 89.8 95 04/06 0345 98.8 66 13 149/71 96.9 95 Room air 24 hour I O ending at 0700: 0406 0700 04/05 1900 Intake Total 600 Output [...] sounds, soft Extremities: no edema, RT AKA Neuro/ELECTRICAL CONTROLS TECHNICIAN: alert, oriented X 3, normal speech Hemodialysis [...] will continue to follow. at 2330 RPT #:[id number] END OF REPORT 2020-05-17 10:33:00-00:00 [facility] ([facility]) Trauma Progress Note REPORT#:[id number] REPORT STATUS: Signed DATE:05/17/20 TIME: 1033 PATIENT: DARIEN GROSSMAN UNIT #: [id number] ROOM/BED: [place] [address] : 45 AGE: 74 SEX: M ATTEND: Liliam Espino MD ADM AUTHOR: Derick Clark * ALL edits or amendments must be made on the [employer]/computer document * Subjective Chief Complaint: generalized weakness HPI: no acute events overnight, pt was accepted at [facility] rehab but refused transfer there and wants Rehab here on 5th floor . CM aware and will get new choice letter for patient with plan to admit to inpatient rehab here at [facility] Review of Systems Neuro: Denies: change in [...] 04/ 0815 71 15 136/66 89.8 95 / 0345 98.8 66 13 149/71 96.9 95 Room air / 2310 98.2 54 12 142/62 89.0 96 Room air /1 97.9 67 12 164/66 98.4 95 Room air / 1729 64 164/73 103.2 05/16 1726 98.6 05/16 1608 71 20 155/62 93.0 94 Room air 05/16 1418 99.3 68 14 176/73 107.6 96 Nasal cannula 24 hour I O ending at 0700: 04 0700 04/ 1900 Intake Total 600 Output [...] deformity right AK A noted R AKA Neuro/ELECTRICAL CONTROLS TECHNICIAN: alert, oriented X 3, no motor deficit [...] diet Lines/Be/ETT (placement dates: PIV Consultants: Neurosurg ([facility]), Nephrology Procedures: n/a Plan: Pt was seen [...] medical decisions, the y have elected Marin Gomezdall, contact number [phone], to make medical decisions f or them. [...] Derick Clark on 08/01 at 1038 RPT #:[id number] END OF REPORT 2020-05-17 10:33:00-00:00 [facility] Trauma Progress Note REPORT#:[id number] REPORT STATUS: Signed DATE:05/17/20 TIME: 1033 PATIENT: DARIEN GROSSMAN UNIT #: [id number] ROOM/BED: [place] [address] : 45 AGE: 74 SEX: M ATTEND: Liliam Espino MD ADM AUTHOR: Derick Clark * ALL edits or amendments must be made on the [employer]/computer document * Derick Clark 05/17/20 1033: Subjective Chief Complaint: generalized weakness HPI: no acute events overnight, pt was accepted at [facility] rehab but refused transfer there and wants Rehab here on 5th floor . CM aware and will get new choice letter for patient with plan to admit to inpatient rehab here at [facility] Review of Systems Neuro: Denies: change in [...] / 0815 71 15 136/66 89.8 95 04/ 0345 98.8 66 13 149/71 96.9 95 Room air 04/05 2310 98.2 54 12 142/62 89.0 96 Room air 04/05 2041 97.9 67 12 164/66 98.4 95 Room air 04/05 1729 64 164/73 103.2 04/ 1726 98.6 / 1608 71 20 155/62 93.0 94 Room air 04/ 1418 99.3 68 14 176/73 107.6 96 Nasal cannula 24 hour I O ending at 0700: 05/17 0700 / 1900 Intake Total 600 Output Total 2100 [...] deformity right AK A noted R AKA Neuro/ELECTRICAL CONTROLS TECHNICIAN: alert, oriented X 3, no motor deficit [...] diet Lines/Be/ETT (placement dates: PIV Consultants: Neurosurg ([facility]), Nephrology Procedures: n/a Plan: Pt was seen [...] y have elected Marin Mixon, contact number [phone], to make medical decisions f or them. [...] Agree w/findings plan: I interviewed and examined t he patient with the [facility]. I agree with the findings and plan as documented by Derick Clark PA-C. Julian Balbuena MD Attending Surgeon Trauma Surgery Electronically Signed by Derick Clark on 08/01 at 1038 RPT #:[id number] END OF REPORT 2020-05-17 10:33:00-00:00 [facility] ([facility]) Trauma Progress Note REPORT#:[id number] REPORT STATUS: Signed DATE:05/17/20 TIME: 1033 PATIENT: DARIEN GROSSMAN UNIT #: [id number] ROOM/BED: [place] [address] : 45 AGE: 74 SEX: M ATTEND: Liliam Espino MD ADM AUTHOR: Derick Clark * ALL edits or amendments must be made on the [employer]/computer document * Derick Clark 05/17/20 1033: Subjective Chief Complaint: generalized weakness HPI: no acute events overnight, pt was accepted at [facility] rehab but refused transfer there and wants Rehab here on 5th floor . CM aware and will get new choice letter for patient with plan to admit to inpatient rehab here at [facility] Review of Systems Neuro: Denies: change in [...] 71 20 155/62 93.0 94 Room air 04/ 1418 99.3 68 14 176/73 107.6 96 Nasal cannula 24 hour I O ending at 0700: 06 0700 04/05 1900 Intake Total 600 Output [...] deformity right AK A noted R AKA Neuro/ELECTRICAL CONTROLS TECHNICIAN: alert, oriented X 3, no motor deficit [...] y have elected Marin Mixon, contact number [phone], to make medical decisions f or them. [...] Julian Balbuena MD on at 1331 RPT #:[id number] END OF REPORT 2020-05-17 06:37:00-00:[address] [facility] ([facility]) Rehab Progress Note REPORT#:[id number] REPORT STATUS: Signed DATE:05/17/20 TIME: 636 PATIENT: DARIEN GROSSMAN UNIT #: [id number] ROOM/BED: [place] [address] : 45 AGE: 74 SEX: M ATTEND: Liliam Espino MD ADM AUTHOR: Clint DunawayC * ALL edits or amendments must be made on the [employer]/computer document * Subjective Chief complaint: Rehab follow-up C/o of amputatin site pain Slept fair Eating well Denies GUTIÉRREZ/N/V/D 14 systems reviewed and neg. except that above. Objective General VS: Vital Signs: Date Time Temp Pulse Resp B/P B/P Pulse O2 O2 F low FiO2 Mean Ox Delivery Rate 05/17 0345 98.8 66 13 149/71 96.9 95 Room air / 2310 98.2 54 12 142/62 89.0 96 Room air / 2041 97.9 67 12 164/66 98.4 95 Room air 04/ 1729 64 164/73 103.2 05/16 1726 98.6 / 1608 71 20 155/62 93.0 94 Room [...] 3+/5. L calv e NT, NO cords. Neuro/ELECTRICAL CONTROLS TECHNICIAN: alert, oriented X 3, CNII-XII intact, normal speech Results Findings/Data: Laboratory Tests: 05/16 09 Chemistry Sodium (134 - 147 mEq/L) 138 [...] (Auto) (14.0 - 32.0 %) 11.5 L Rutherford % (Auto) (4.8 - 9.0 %) 9.5 H Eos % (Auto) (0.3 - 3.7 %) 13.3 H Baso % (Auto) (0.0 - 2.0 %) 0.5 Neut # (Auto) (2.0 - 7.6 x10 3/uL) 5.71 Lymph # (Auto) (1.0 - 3.8 x10 3/uL) 1.01 Rutherford # (Auto) (0.1 - 0.8 x10 3/uL) [...] [facility] and [facility] Pt. states he would like [...] answered. Rehab attestation: . at 2049 RPT #:[id number] END OF REPORT 2020-05-16 13:50:00-00:00 [facility] Nephrology Progress Note REPORT#:[id number] REPORT STATUS: Signed DATE:05/16/20 TIME: 1350 PATIENT: DARIEN GROSSMAN UNIT #: [id number] ROOM/BED: [place] [address] : 45 AGE: 74 SEX: M ATTEND: Liliam Espino MD ADM AUTHOR: Jenny Banegas * ALL edits or amendments must be made on the [employer]/computer document * Subjective Chief Complaint: Seen and [...] 05/156 98.2 72 20 145/67 93.0 98 05/15 [...] sounds, soft Extremities: no edema, RT AKA Neuro/ELECTRICAL CONTROLS TECHNICIAN: alert, oriented X 3, normal speech Hemodialysis access: Type: AV fistula Location: left forearm Results Findings/Data: Laboratory Tests 05/16 0815 Chemistry Sodium (134 - 147 mEq/L) [...] (Auto) (14.0 - 32.0 %) 11.5 L Rutherford % (Auto) (4.8 - 9.0 %) 9.5 H Eos % (Auto) (0.3 - 3.7 %) 13.3 H Baso % (Auto) (0.0 - 2.0 %) 0.5 Neut # (Auto) (2.0 - 7.6 x10 3/uL) 5.71 Lymph # (Auto) (1.0 - 3.8 x10 3/uL) 1.01 Rutherford # (Auto) (0.1 - 0.8 x10 3/uL) [...] with Dr Dana barnhart. at 1451 RPT #:[id number] END OF REPORT 2020-05-16 13:50:00-00:00 [facility] REPORT#:[id number] REPORT STATUS: Signed DATE:05/16/20 TIME: 1350 PATIENT: DARIEN GROSSMAN UNIT #: [id number] ROOM/BED: [place] [address] : 45 AGE: 74 SEX: M ATTEND: Liliam Espino MD ADM AUTHOR: Jenny Banegas * ALL edits or amendments must be made on the [employer]/computer document * Jenny Banegas 05/16/20 1350: Subjective [...] 98.2 72 20 145/67 93.0 98 05/15 192 98.1 66 17 163/72 102.6 96 Room [...] sounds, soft Extremities: no edema, RT AKA Neuro/ELECTRICAL CONTROLS TECHNICIAN: alert, oriented X 3, normal speech Hemodialysis [...] (Auto) (14.0 - 32.0 %) 11.5 L Rutherford % (Auto) (4.8 - 9.0 %) 9.5 H Eos % (Auto) (0.3 - 3.7 %) 13.3 H Baso % (Auto) (0.0 - 2.0 %) 0.5 Neut # (Auto) (2.0 - 7.6 x10 3/uL) 5.71 Lymph # (Auto) (1.0 - 3.8 x10 3/uL) 1.01 Rutherford # (Auto) (0.1 - 0.8 x10 3/uL) [...] (0.0 - 0.1 x10 3/uL) 0. 00 Diagnosis, Assessment Plan Free Text A P: [...] This plan of care was discussed with Anders Mcnamara 05/16/20 1726: Attestations Physician Attestation Agree w/findings plan: I have reviewed the history physical and plan wi ORVILLE Soler and have reviewed the note with her. Patient is s een on hemodialysis. I concur with the note written by Jenny and agree with the jj n of care. at 1451 RPT #:[id number] END OF REPORT 2020-05-16 13:50:00-00:00 [facility] Nephrology Progress Note REPORT#:[id number] REPORT STATUS: Signed DATE:05/16/20 TIME: 1350 PATIENT: DARIEN GROSSMAN UNIT #: [id number] ROOM/BED: [place] [address] : 45 AGE: 74 SEX: M ATTEND: Liliam Espino MD ADM AUTHOR: Jenny Banegas * ALL edits or amendments must be made on the [employer]/computer document * Jenny Banegas 05/16/20 1350: Subjective Chief Complaint: Seen and examined in HD. Reports feeling well to day, eager to be done with treatment. No new issues. Review of Systems All systems rev neg: except as marked Objective General VS/I O: Vital Signs: Date Time Temp Pulse Resp B/P B/P Pulse O2 O2 Flow FiO2 Mean Ox Delivery Rate 05/16 08 [...] sounds, soft Extremities: no edema, RT AKA Neuro/ELECTRICAL CONTROLS TECHNICIAN: alert, oriented X 3, normal speech Hemodialysis [...] (Auto) (14.0 - 32.0 %) 11.5 L Rutherford % (Auto) (4.8 - 9.0 %) 9.5 H Eos % (Auto) (0.3 - 3.7 %) 13.3 H Baso % (Auto) (0.0 - 2.0 %) 0.5 Neut # (Auto) (2.0 - 7.6 x10 3/uL) 5.71 Lymph # (Auto) (1.0 - 3.8 x10 3/uL) 1.01 Rutherford # (Auto) (0.1 - 0.8 x10 3/uL) [...] with Dr Dana barnhart. Anders Quick 05/16/20 7868: Attestations Physician Attestation Agree w/findings plan: I have reviewed the history physical and plan wi ORVILLE Soler and have reviewed the note with her. Patient is s een on hemodialysis. I concur with the note written by Jenny and agree with the jj n of care. at 1451 at 6345 RPT #:[id number] END OF REPORT 2020-05-16 13:14:00-00:00 [facility] ([facility]) Trauma Progress Note REPORT#:[id number] REPORT STATUS: Signed DATE:05/16/20 TIME: 1314 PATIENT: DARIEN GROSSMAN UNIT #: [id number] ROOM/BED: [place] [address] : 45 AGE: 74 SEX: M ATTEND: Liliam Espino MD ADM AUTHOR: Derick Clark * ALL edits or amendments must be made on the [employer]/computer document * Subjective Chief Complaint: generalized weakness [...] deformity right AK A noted R AKA Neuro/ELECTRICAL CONTROLS TECHNICIAN: alert, oriented X 3, no motor deficit [...] (Auto) (14.0 - 32.0 %) 11.5 L Rutherford % (Auto) (4.8 - 9.0 %) 9.5 H Eos % (Auto) (0.3 - 3.7 %) 13.3 H Baso % (Auto) (0.0 - 2.0 %) 0.5 Neut # (Auto) (2.0 - 7.6 x10 3/uL) 5.71 Lymph # (Auto) (1.0 - 3.8 x10 3/uL) 1.01 Rutherford # (Auto) (0.1 - 0.8 x10 3/uL) [...] diet Lines/Be/ETT (placement dates: PIV Consultants: Neurosurg ([facility]), Nephrology Procedures: n/a Plan: Pt was seen and evaluated c Dr Hoffmann, who deter mined the POC As a result of this trauma consultation, pt was admitted to [facility] Subdural hematoma * Stable acute left parafalc [...] y have elected Marin Mixon, contact number [phone], to make medical decisions f or them. [...] Derick Clark on 07/01 at 1316 RPT #:[id number] END OF REPORT 2020-05-16 13:14:00-00:00 [facility] ([facility]) Trauma Progress Note REPORT#:[id number] REPORT STATUS: Signed DATE:05/16/20 TIME: 131 PATIENT: DARIEN GROSSMAN UNIT #: [id number] ROOM/BED: [place] [address] : 45 AGE: 74 SEX: M ATTEND: Liliam Espino MD ADM AUTHOR: Derick Clark * ALL edits or amendments must be made on the [employer]/computer document * Derick Clark 05/16/20 1314: Subjective [...] deformity right AK A noted R AKA Neuro/ELECTRICAL CONTROLS TECHNICIAN: alert, oriented X 3, no motor deficit [...] (Auto) (14.0 - 32.0 %) 11.5 L Rutherford % (Auto) (4.8 - 9.0 %) 9.5 H Eos % (Auto) (0.3 - 3.7 %) 13.3 H Baso % (Auto) (0.0 - 2.0 %) 0.5 Neut # (Auto) (2.0 - 7.6 x10 3/uL) 5.71 Lymph # (Auto) (1.0 - 3.8 x10 3/uL) 1.01 Rutherford # (Auto) (0.1 - 0.8 x10 3/uL) [...] this trauma consultation, pt was admitted to [facility] Subdural hematoma * Stable acute left parafalc [...] y have elected Marin Mixon, contact number [phone], to make medical decisions f or them. [...] Derick Clark on 07/01 at 1316 RPT #:[id number] END OF REPORT 2020-05-16 13:14:00-00:00 [facility] ([facility]) Trauma Progress Note REPORT#:[id number] REPORT STATUS: Signed DATE:05/16/20 TIME: 1314 PATIENT: DARIEN GROSSMAN UNIT #: [id number] ROOM/BED: [place] [address] : 45 AGE: 74 SEX: M ATTEND: Liliam Espino MD ADM AUTHOR: Derick Clark * ALL edits or amendments must be made on the [employer]/computer document * Derick Clark 05/16/20 1314: Subjective [...] 59 16 154/67 96.3 94 Room air 05/168 98.1 64 17 129/65 85.9 93 Room air 05/16 2115 98.2 72 20 145/67 93.0 98 05/15 1926 98.1 66 17 163/72 102.6 96 Room air 05/15 1543 98.2 63 18 151/75 100.2 96 Room air 05/15 1316 98.4 53 16 132/72 92.1 97 Room air 24 hour I O ending at 0700: 0405 0700 04/04 1900 Intake Total 200 1500 [...] deformity right AK A noted R AKA Neuro/ELECTRICAL CONTROLS TECHNICIAN: alert, oriented X 3, no motor deficit [...] (Auto) (14.0 - 32.0 %) 11.5 L Rutherford % (Auto) (4.8 - 9.0 %) 9.5 H Eos % (Auto) (0.3 - 3.7 %) 13.3 H Baso % (Auto) (0.0 - 2.0 %) 0.5 Neut # (Auto) (2.0 - 7.6 x10 3/uL) 5.71 Lymph # (Auto) (1.0 - 3.8 x10 3/uL) 1.01 Rutherford # (Auto) (0.1 - 0.8 x10 3/uL) [...] hold lovenox for ICH GI prophylaxis: diet Lines/Eb/ETT (placement dates: PIV Consultants: Neurosurg ([facility]), Nephrology Procedures: n/a Plan: Pt was seen and evaluated c Dr Hoffmann, who deter mined the POC As a result of this trauma consultation, pt was admitted to [facility] Subdural hematoma * Stable acute left parafalc [...] medical decisions, the y have elected Marin Ector, contact number [phone], to make medical decisions f or them. [...] Julian Balbuena MD on at 1430 RPT #:[id number] END OF REPORT 2020-05-16 10:39:00-00:00 [facility] Rehab Progress Note REPORT#:[id number] REPORT STATUS: Signed DATE:05/16/20 TIME: 1039 PATIENT: DARIEN GROSSMAN UNIT #: [id number] ROOM/BED: [place] [address] : 45 AGE: 74 SEX: M ATTEND: Liliam Espino MD ADM AUTHOR: Sekou Curtis MD * ALL edits or amendments must be made on the el ectronic/computer document * Subjective Chief complaint: Rehab follow-up Doing well today Going for hemodialysis Walked over 32 feet No recent BM Denies GUTIÉRREZ/N/V/D 14 systems reviewed and neg. except that [...] One on one supervision with cueing and feliicta tance provided to ensure proper performance of [...] 3+/5. L calv e NT, NO cords. 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 Stable acute left parafalcine subdural hematoma extending into the left tentorium. Minimal left to right midline sh ift is stable. SL: TPAINTER-H Impression By: [email or web address] - Anoop Mays M.D. Objective Comments Objective [...] as tolerated. We will follow-up after evals Case [facility] Continue to follow while the [...] nurse Rehab attestation: . at 1428 RPT #:[id number] END OF REPORT 2020-05-15 14:06:00-00:00 [facility] ([facility]) Trauma Progress Note REPORT#:[id number] REPORT STATUS: Signed DATE:05/15/20 TIME: 1406 PATIENT: DARIEN GROSSMAN UNIT #: [id number] ROOM/BED: [place] [address] : 45 AGE: 74 SEX: M ATTEND: Liliam Espino MD ADM AUTHOR: Derick Clark * ALL edits or amendments must be made on the [employer]/computer document * Subjective Chief Complaint: generalized weakness [...] deformity right AK A noted, R AKA Neuro/ELECTRICAL CONTROLS TECHNICIAN: alert, oriented X 3, no motor deficit [...] this trauma consultation, pt was admitted to [facility] Subdural hematoma * Stable acute left parafalc [...] y have elected Marin Mixon, contact number [phone], to make medical decisions f or them. [...] Derick Clark on 06/01 at 1412 RPT #:[id number] END OF REPORT 2020-05-15 14:06:00-00:00 [facility] ([facility]) Trauma Progress Note REPORT#:[id number] REPORT STATUS: Signed DATE:05/15/20 TIME: 1406 PATIENT: DARIEN GROSSMAN UNIT #: [id number] ROOM/BED: [place] [address] : [birth year] AGE: 74 SEX: M ATTEND: Liliam Espino MD ADM AUTHOR: Derick Clark * ALL edits or amendments must be made on the [employer]/computer document * Derick Clark 05/15/20 1406: Subjective [...] deformity right AK A noted, R AKA Neuro/ELECTRICAL CONTROLS TECHNICIAN: alert, oriented X 3, no motor deficit [...] diet Lines/Be/ETT (placement dates: PIV Consultants: Neurosurg ([facility]), Nephrology Procedures: n/a Plan: Pt was seen and evaluated c Dr Hoffmann, who deter mined the POC As a result of this trauma consultation, pt was admitted to [facility] Subdural hematoma * Stable acute left parafalc [...] y have elected Marin Mixon, contact number [phone], to make medical decisions f or them. [...] his interactions with nursing yesterday regarding a cane pusher and his desire to go either to [facility], where he came from or to rehab here at [facility] he would like to hear more about the facilities here On my exam nad, gcs15, lungs-unlabored on room a ir, cv-regular, R AKA with dressing in place, moving all extremities Plan: PMR consulted for evaluation and facilitation of rehab placement, appreciate assistance May resume Plavix today, 05/15/[address] Susan swenson, Neurosurgery CM for dispo Labs reviewed. Pertinent imaging personally revi katina. Discussed plan with other members of the [facility] are team. Tri Hoffmann MD Trauma/Acute Care Surgery Electronically Signed by Derick Clark on 06/01 at 1412 RPT #:[id number] END OF REPORT 2020-05-15 14:06:00-00:00 [facility] ([facility]) Trauma Progress Note REPORT#:[id number] REPORT STATUS: Signed DATE:05/15/20 TIME: 1406 PATIENT: DARIEN GROSSMAN UNIT #: [id number] ROOM/BED: [place] [address] : [birth year] AGE: 74 SEX: M ATTEND: Liliam Espino MD ADM AUTHOR: Derick Clark * ALL edits or amendments must be made on the [employer]/computer document * Derick Clark 05/15/20 1406: Subjective [...] deformity right AK A noted, R AKA Neuro/ELECTRICAL CONTROLS TECHNICIAN: alert, oriented X 3, no motor deficit [...] diet Lines/Be/ETT (placement dates: PIV Consultants: Neurosurg ([facility]), Nephrology Procedures: n/a Plan: Pt was seen and evaluated c Dr Hoffmann, who deter mined the POC As a result of this trauma consultation, pt was admitted to [facility] Subdural hematoma * Stable acute left parafalc [...] medical decisions, the y have elected Marin iMxon, contact number [phone], to make medical decisions f or them. [...] his interactions with nursing yesterday regarding a cane pusher and his desire to go either to [facility], where he came from or to rehab here at [facility] he would like to hear more about the facilities here On my exam nad, gcs15, lungs-unlabored on room a ir, cv-regular, R AKA with dressing in place, moving all extremities Plan: PMR consulted for evaluation and facilitation of rehab placement, appreciate assistance May resume Plavix today, 05/15/[address] Susan swenson, Neurosurgery CM for dispo Labs reviewed. Pertinent imaging personally revi katina. Discussed plan with other members of the [facility] are team. Tri Hoffmann MD Trauma/Acute Care Surgery Electronically Signed by Derick Clark on 06/01 at 1412 RPT #:[id number] END OF REPORT 2020-05-15 14:06:00-00:[address] [facility] ([facility]) Trauma Progress Note REPORT#:[id number] REPORT STATUS: Signed DATE:05/15/20 TIME: 140 PATIENT: DARIEN GROSSMAN UNIT #: [id number] ROOM/BED: [place] [address] : [birth year] AGE: 74 SEX: M ATTEND: Liliam Espino MD ADM AUTHOR: Derick Clark * ALL edits or amendments must be made on the [employer]/computer document * Derick Clark 05/15/20 1406: Subjective [...] deformity right AK A noted, R AKA Neuro/ELECTRICAL CONTROLS TECHNICIAN: alert, oriented X 3, no motor deficit [...] this trauma consultation, pt was admitted to [facility] Subdural hematoma * Stable acute left parafalc [...] y have elected Marin Mixon, contact number [phone], to make medical decisions f or them. [...] his interactions with nursing yesterday regarding a cane pusher and his desire to go either to [facility], where he came from or to rehab here at [facility] he would like to hear more about [...] Discussed plan with other members of the [facility] are team. Tri Hoffmann MD Trauma/Acute Care Surgery Electronically Signed by Derick Clark PA on 06/01 at 1412 Electronically Signed by Tri Hoffmann MD o n 05/15/20 at 1544 RPT #:[id number] END OF REPORT 2020-05-15 11:09:00-00:[address] [facility] ([facility]) Nephrology Progress Note REPORT#:[id number] REPORT STATUS: Signed DATE:05/15/20 TIME: 110 PATIENT: DARIEN GROSSMAN UNIT #: [id number] ROOM/BED: [place] [address] : [birth year] AGE: 74 SEX: M ATTEND: Liliam Espino MD ADM AUTHOR: Anders Quick MD * ALL edits or amendments must be made on the [employer]/computer document * Subjective Chief Complaint: Patient with ESRD admitted w ith a fall. Doing well. Had HD yesterday. [...] 127/68 87.5 95 Room air 05/14 2339 36.8 76 17 168/73 104.6 97 Room air 05/14 1957 36.9 70 17 159/68 98.3 96 Room air 05/14 1630 37.4 63 16 160/68 98.7 97 Room air 05/14 1227 36.4 72 16 179/75 109.6 98 [...] sounds, soft Extremities: no edema, RT AKA Neuro/ELECTRICAL CONTROLS TECHNICIAN: alert, oriented X 3, normal speech Hemodialysis [...] , will schedule him for dialysis to [facility] from next week. No labs today -Blood pressure currently stable and home medica tions restarted with holding parameters -Renal diet -Hemoglobin has been low. Start Epogen 3 times w toby -Phos has been stable -Neurosurgery follow-up. Blood thinners on hold. We will continue to follow. at 1309 RPT #:[id number] END OF REPORT 2020-05-15 07:41:00-00:[address] [facility] ([facility]) Adult General Consultation REPORT#:[id number] REPORT STATUS: Signed DATE:05/15/20 TIME: 740 PATIENT: DARIEN GROSSMAN UNIT #: [id number] ROOM/BED: [place] [address] : [birth year] AGE: 74 SEX: M ATTEND: Liliam Espino MD ADM AUTHOR: Sharon Dunaway * ALL edits or amendments must be made on the [employer]/computer document * History of Present Illness Requesting [...] 25 MG PO DAILY 05/13/2005/13 (PRISTIQ) 1446 1936 Strength: 50 MG TAB.SR.24H traZODone (DESYREL) 150 MG PO BEDTIME 05/13/20 05/13/20 Strength: 150 MG TAB 1446 1936 FUROSEMIDE (LASIX) 40 MG PO DAILY 05/13/2004/03 Strength: 40 MG TAB 1447 1936 METOPROLOL TARTRATE 25 MG PO BID 05/13/2005/13 (LOPRESSOR) 1448 1936 Strength: 25 MG TAB levETIRAcetam (KEPPRA) 500 [...] Admin Epoetin Donny-epbx 4,000 UNIT TuThSa@2100 05/14 2100 AC 05/14 (RETACRIT) SUBQ 06/13 Heparin Sodium 3,000 UNIT ASDIR PRN 05/14 0845 AC (Porcine) DIALYSIS 06/13 08 (HEPARIN SODIUM) Cardiovascular Drugs Sig/Tatum Start time Last Medication Dose Route Stop Time Status Admin Lidocaine HCl 0.5 ML ASDIR PRN 05/14 0845 CKD (LIDOCAINE HCL/PF) I-DERMAL 06/14 0844 Metoprolol Tartrate 25 MG BID 05/13 2099 AC (LOPRESSOR) PO 06/12 Hydralazine HCl 10 MG Q6H PRN PRN 05/13 0245 AC 05/13 (APRESOLINE) IV 06/13 243 2154 Central Nervous System Agents Sig/Tatum Start [...] 05/13 2099 AC 05/14 (BUSPAR) PO 06/12 2058 2144 Gabapentin 300 MG BEDTIME 05/13 2099 AC 05/14 (NEURONTIN) PO 06/12 2058 213 Trazodone HCl 150 MG BEDTIME 05/13 2100 AC (DESYREL) PO 06/12 2058 2137 Zolpidem Tartrate 5 MG BEDTIME PRN PRN 05/13 20 00 AC 05/14 (AMBIEN) PO 06/12 1958 2137 Hydrocodone Bitart/ 1 TAB Q6H PRN PRN 05/13 160 0 DC 05/14 Acetaminophen PO 05/18 1559 0942 (NORCO 10/325) Levetiracetam 500 MG Q12HR 05/13 09 AC 05/14 (KEPPRA) PO 05/19 0901 2137 Acetaminophen 650 MG Q6H PRN PRN 05/13 0245 AC (TYLENOL) PO 06/12 0244 Morphine Sulfate 4 MG Q4H PRN PRN 05/13 0245 AC 05/14 (morphine SULFATE) IV 05/18 024 2137 Electrolytic, Caloric, And Nadia Sig/Tatum Start time Last Medication Dose Route Stop Time Status Admin Furosemide 40 MG DAILY 05/14 0900 AC 05/14 (LASIX) PO 06/13 0859 1210 Mannitol 12.5 GM ASDIR PRN 05/14 0845 AC (MANNITOL 25% 12.5GM/ IV 06/14 0844 50ML) Sodium Chloride 2,000 ML ASDIR PRN 05/14 0845 A C 05/14 (SODIUM CHLORIDE IV 06/15 843 1108 0.9%) Sodium Chloride 5 ML ASDIR PRN 05/14 0845 AC (SODIUM CHLORIDE) IV 06/14 843 Sodium Chloride 10 ML ASDIR PRN 05/14 0845 AC 0 05/14 (SODIUM CHLORIDE) IV 06/14 0744 1109 Sodium Chloride 250 ML ASDIR PRN 05/14 0845 AC (SODIUM CHLORIDE IV 06/14 843 0.9%) Gastrointestinal Drugs Sig/Tatum Start time Last Medication Dose Route Stop Time Status Admin Polyethylene Glycol 17 GM DAILY 05/13 0900 AC 0 05/14 (MIRALAX) PO 06/12 0859 1209 Ondansetron HCl 4 MG Q4H PRN PRN 05/13 0245 AC (ZOFRAN) IV 06/12 024 Skin And Mucous Membrane Agent Sig/Tatum Start [...] Ox 94 05/15 746 B/P 143/72 05/15 746 B/P Mean 95.5 05/15 746 O2 Delivery Room air 05/15 746 Temp 98.2 05/15 746 Pulse 73 05/15 746 Resp 20 05/15 746 O2 Flow Rate 0.0 05/13 1600 FiO2 98 05/13 1200 24 hour I O ending at 0700: 05/15 0705/14 1900 Intake Total 750 Output Total 1999 [...] BUE 4/5 RT HF/Stump 3/5 LLE 3/5 Neuro/ELECTRICAL CONTROLS TECHNICIAN: alert, oriented X 3, CNII-XII grossly intact [...] (Auto) (14.0 - 32.0 %) 11.2 L Rutherford % (Auto) (4.8 - 9.0 %) 11.0 H Eos % (Auto) (0.3 - 3.7 %) 7.2 H Baso % (Auto) (0.0 - 2.0 %) 0.3 Neut # (Auto) (2.0 - 7.6 x10 3/uL) 6.38 Lymph # (Auto) (1.0 - 3.8 x10 3/uL) 1.02 Rutherford # (Auto) (0.1 - 0.8 x10 3/uL) [...] after evals Pt wants to go to [facility] for rehab Thank you for referral. [facility] 65 or Older Discussed with: patient, Patient noting tonight that he wants to be DNR. We discussed what that means an d he is aware- he made that decision for his mother as well Discussion included: code status, surrog ate decision maker per him is a family friend named Marinursula Kimbleall at 1147 RPT #:[id number] END OF REPORT 2020-05-14 15:07:00-00:00 [facility] ([facility]) Trauma Progress Note REPORT#:[id number] REPORT STATUS: Signed DATE:05/14/20 TIME: 1507 PATIENT: DARIEN GROSSMAN UNIT #: [id number] ROOM/BED: [place] [address] : [birth year] AGE: 74 SEX: M ATTEND: Liliam Espino MD ADM AUTHOR: Derick Clark * ALL edits or amendments must be made on the [employer]/computer document * Subjective Chief Complaint: generalized weakness [...] 66 16 116/55 75.3 95 Room air / 2301 59 18 110/56 80 95 04/ 2200 72 22 156/72 103 94 04/ 2130 76 14 162/71 102 95 04/ 2100 72 7 153/70 100 96 05/13 2029 73 12 163/72 103 96 05/13 2000 98.9 05/14 1999 71 18 157/71 102 96 04/ 1930 71 13 150/68 98 96 / 1900 69 13 147/67 96 95 /02 1600 98.1 75 21 134/65 88 98 [...] tenderness or deformity right AK A noted Neuro/ELECTRICAL CONTROLS TECHNICIAN: alert, oriented X 3, no motor deficit [...] (Auto) (14.0 - 32.0 %) 11.2 L Rutherford % (Auto) (4.8 - 9.0 %) 11.0 H Eos % (Auto) (0.3 - 3.7 %) 7.2 H Baso % (Auto) (0.0 - 2.0 %) 0.3 Neut # (Auto) (2.0 - 7.6 x10 3/uL) 6.38 Lymph # (Auto) (1.0 - 3.8 x10 3/uL) 1.02 Rutherford # (Auto) (0.1 - 0.8 x10 3/uL) [...] (0.0 - 0.1 x10 3/uL) 0. 00 Laboratory Tests 05/14 0845 Serology Hepatitis A [...] this trauma consultation, pt was admitted to [facility] Subdural hematoma * Stable acute left parafalc [...] y have elected Marin Mixon, contact number [phone], to make medical decisions f or them. [...] Derick Clark on 05/01 at 1521 RPT #:[id number] END OF REPORT 2020-05-14 15:07:00-00:00 [facility] ([facility]) Trauma Progress Note REPORT#:[id number] REPORT STATUS: Signed DATE:05/14/20 TIME: 1507 PATIENT: DARIEN GROSSMAN UNIT #: [id number] ROOM/BED: [place] [address] : [birth year] AGE: 74 SEX: M ATTEND: Liliam Espino MD ADM AUTHOR: Derick Clark * ALL edits or amendments must be made on the [employer]/Meu[employer] document * See Addendum Subjective Chief Complaint: [...] 67 16 147/66 92.9 96 Room air 04/ 0318 98.4 60 16 127/63 84.6 96 Room air 05/13 2359 98.4 66 16 116/55 75.3 95 Room air / 2301 59 18 110/56 80 95 / 2200 72 22 156/72 103 94 04/0 76 14 162/71 102 95 /2099 72 7 153/70 100 96 05/13 2029 73 12 163/72 103 96 05/14 1999 98.9 041999 71 18 157/71 102 96 / 1930 71 13 150/68 98 96 04/ 1900 69 13 147/67 96 95 / 1600 98.1 75 21 134/65 88 98 [...] tenderness or deformity right AK A noted Neuro/ELECTRICAL CONTROLS TECHNICIAN: alert, oriented X 3, no motor deficit [...] (Auto) (14.0 - 32.0 %) 11.2 L Rutherford % (Auto) (4.8 - 9.0 %) 11.0 H Eos % (Auto) (0.3 - 3.7 %) 7.2 H Baso % (Auto) (0.0 - 2.0 %) 0.3 Neut # (Auto) (2.0 - 7.6 x10 3/uL) 6.38 Lymph # (Auto) (1.0 - 3.8 x10 3/uL) 1.02 Rutherford # (Auto) (0.1 - 0.8 x10 3/uL) [...] A IgM Ab (NON REACT. INDEX) NON REAC TIVE Hep Bs Antigen (NonReactive INDEX) NON REACTIVE [...] this trauma consultation, pt was admitted to [facility] Subdural hematoma * Stable acute left parafalc [...] y have elected Marin Mixon, contact number [phone], to make medical decisions f or them. [...] Derick Clark on 05/01 at 1525 RPT #:[id number] END OF REPORT 2020-05-14 15:07:00-00:00 [facility] ([facility] Trauma Progress Note REPORT#:[id number] REPORT STATUS: Signed DATE:05/14/20 TIME: 1507 PATIENT: DARIEN GROSSMAN UNIT #: [id number] ROOM/BED: [place] [address] : [birth year] AGE: 74 SEX: M ATTEND: Liliam Espino MD ADM AUTHOR: Derick Clark * ALL edits or amendments must be made on the [employer]/Meu[employer] document * See Addendum Derick Clark 05/14/20 1507: Subjective Chief Complaint: generalized weakness [...] 60 16 127/63 84.6 96 Room air / 2359 98.4 66 16 116/55 75.3 95 Room air 04/ 2301 59 18 110/56 80 95 / 2200 72 22 156/72 103 94 04/ 2130 76 14 162/71 102 95 04/ 2100 72 7 153/70 100 96 04/ 2030 73 12 163/72 103 96 04/ 2000 98.9 05/13 2000 71 18 157/71 102 96 04/ 1930 71 13 150/68 98 96 04/ 1900 69 13 147/67 96 95 /02 1600 98.1 75 21 134/65 88 98 Room air 0.0 24 hour I O ending at 0700: 0403 0700 04/02 1900 Intake Total 100 650 [...] tenderness or deformity right AK A noted Neuro/ELECTRICAL CONTROLS TECHNICIAN: alert, oriented X 3, no motor deficit [...] (Auto) (14.0 - 32.0 %) 11.2 L Rutherford % (Auto) (4.8 - 9.0 %) 11.0 H Eos % (Auto) (0.3 - 3.7 %) 7.2 H Baso % (Auto) (0.0 - 2.0 %) 0.3 Neut # (Auto) (2.0 - 7.6 x10 3/uL) 6.38 Lymph # (Auto) (1.0 - 3.8 x10 3/uL) 1.02 Rutherford # (Auto) (0.1 - 0.8 x10 3/uL) [...] diet Lines/Be/ETT (placement dates: PIV Consultants: Neurosurg ([facility]), Nephrology Procedures: n/a Plan: Pt was seen and evaluated c Dr Hoffmann, who deter mined the POC As a result of this trauma consultation, pt was admitted to [facility] Subdural hematoma * Stable acute left parafalc [...] y have elected Marin Mixon, contact number [phone], to make medical decisions f or them. [...] PT/OT Labs reviewed. Pertinent imaging personally revi katina. Discussed plan with other members of the [facility] are team. Tri Hoffmann MD Trauma/Acute Care Surgery Electronically Signed by Derick Clakr on 05/01 at 1521 Addendum 1: 05/14/20 1524 by Derick Clark Stephanie U MD Tertiary trauma survey performed with no additio nal findings noted. Electronically Signed by Derick Clark on 05/01 at 1525 RPT #:[id number] END OF REPORT 2020-05-14 15:07:00-00:00 [facility] ([facility]) Trauma Progress Note REPORT#:[id number] REPORT STATUS: Signed DATE:05/14/20 TIME: 1507 PATIENT: DARIEN GROSSMAN UNIT #: [id number] ROOM/BED: [place] [address] : [birth year] AGE: 74 SEX: M ATTEND: Liliam Espino MD ADM AUTHOR: Derick Clark * ALL edits or amendments must be made on the [employer]/Meuugame document * See Addendum Derick Clark. 05/14/20 [...] 05/13 2301 59 18 110/56 80 95 / 2200 72 22 156/72 103 94 04/02 2130 76 14 162/71 102 95 04/02 2100 72 7 153/70 100 96 / 2030 73 12 163/72 103 96 / 2000 98.9 05/13 2000 71 18 157/71 102 96 / 1930 71 13 150/68 98 96 / 1900 69 13 147/67 96 95 04/02 [...] tenderness or deformity right AK A noted Neuro/ELECTRICAL CONTROLS TECHNICIAN: alert, oriented X 3, no motor deficit [...] (Auto) (14.0 - 32.0 %) 11.2 L Rutherford % (Auto) (4.8 - 9.0 %) 11.0 H Eos % (Auto) (0.3 - 3.7 %) 7.2 H Baso % (Auto) (0.0 - 2.0 %) 0.3 Neut # (Auto) (2.0 - 7.6 x10 3/uL) 6.38 Lymph # (Auto) (1.0 - 3.8 x10 3/uL) 1.02 Rutherford # (Auto) (0.1 - 0.8 x10 3/uL) [...] A IgM Ab (NON REACT. INDEX) NON REAC TIVE Hep Bs Antigen (NonReactive INDEX) NON REACTIVE [...] diet Lines/Be/ETT (placement dates: PIV Consultants: Neurosurg ([facility]), Nephrology Procedures: n/a Plan: Pt was seen and evaluated c Dr Hoffmann, who deter mined the POC As a result of this trauma consultation, pt was admitted to [facility] Subdural hematoma * Stable acute left parafalc [...] y have elected Marin Mixon, contact number [phone], to make medical decisions f or them. [...] Discussed plan with other members of the [facility] are team. Tri Hoffmann MD Trauma/Acute Care Surgery Electronically Signed by Derick Clark on 05/01 at 1521 Electronically Signed by Tri Hoffmann MD n 05/14/20 at 1941 Addendum 1: 05/14/20 1524 by Derick Clark Tertiary trauma survey performed with no additio nal findings noted. Electronically Signed by Derick Clark on 05/01 at 1525 Electronically Signed by Tri Hoffmann MD n 05/14/20 at 1941 RPT #:[id number] END OF REPORT 2020-05-14 12:21:00-00:00 [facility] ([facility] Nephrology Progress Note REPORT#:[id number] REPORT STATUS: Signed DATE:05/14/20 TIME: 1221 PATIENT: DARIEN GROSSMAN UNIT #: [id number] ROOM/BED: [place] [address] : [birth year] AGE: 74 SEX: M ATTEND: Liliam Espino MD ADM AUTHOR: Anders Quick MD * ALL edits or amendments must be made on the ShareGrove/computer document * Subjective Chief Complaint: Patient with [...] 05/13 2301 59 18 110/56 80 95 / 2200 72 22 156/72 103 94 04 2130 76 14 162/71 102 95 / 2100 72 7 153/70 100 96 04/ 2030 73 12 163/72 103 96 05/14 1999 37.2 05/14 1999 71 18 157/71 102 96 / 1930 71 13 150/68 98 96 04/ 1900 69 13 147/67 96 95 04/02 1600 36.7 75 21 134/65 88 98 [...] sounds, soft Extremities: no edema, RT AKA Neuro/ELECTRICAL CONTROLS TECHNICIAN: alert, oriented X 3, normal speech Hemodialysis [...] (Auto) (14.0 - 32.0 %) 11.2 L Rutherford % (Auto) (4.8 - 9.0 %) 11.0 H Eos % (Auto) (0.3 - 3.7 %) 7.2 H Baso % (Auto) (0.0 - 2.0 %) 0.3 Neut # (Auto) (2.0 - 7.6 x10 3/uL) 6.38 Lymph # (Auto) (1.0 - 3.8 x10 3/uL) 1.02 Rutherford # (Auto) (0.1 - 0.8 x10 3/uL) [...] EMMANUEL Hep Bs Antigen (NonReactive INDEX) NON REACTIV E Hep B Core IgM Ab (NON REACT. [...] hold. We will continue to follow. at 1425 RPT #:[id number] END OF REPORT 2020-05-13 15:13:00-00[facility]00 [facility] REPORT#:[id number] REPORT STATUS: Signed DATE:05/13/20 TIME: 1512 PATIENT: DARIEN GROSSMAN UNIT #: [id number] ROOM/BED: [place] [address] : 45 AGE: 74 SEX: M ATTEND: Liliam Espino MD ADM AUTHOR: Merissa Dillon MD * ALL edits or amendments must be made on the el [employer]/computer document * History of Present Illness Requesting clinician: Reason for consult: ESRD Chief complaint: s/p fall HPI: Patient is a very pleasant [age]-year-old man with history of ESRD, on hemodialysis Saturday in [place], hypertension, hyperlipidemia, coronary artery disease status post stents, right knee ar throplasty complicated by infection and status post ri ght AKA, [facility]. He was initially sent over to [facility] after he fell at the rehab. CT of the head sh owed left acute subdural hematoma and was sent over to [place] for neurosurgical evaluatio n. He was seen [...] 113/55 74 97 Room air 0.0 98 04/ 0800 97.6 71 29 147/66 93 98 Room air 0.0 04/02 0600 64 16 144/64 92 96 04/ 0530 68 11 151/69 99 96 04/ 0515 98.1 04/02 0226 74 17 151/74 99 98 05/13 0122 99.1 78 17 163/72 102 96 Room air 24 hour I O ending at 0700: 05/14 0700 05/13 1900 Intake Total 650 Output Total 800 [...] PRN PRN IV Sodium Chloride 1,000 ML .[id number] IV (DC) Tramadol HCl 50 MG Q4H PRN PRN PO (DC) Sodium Chloride 0 ASDIR PRN IV (DC) Physical Exam General appearance: alert, awake Head/eyes: atraumatic, normocephalic Cardiovascular: normal heart sounds, regular rat e and rhythm Respiratory: clear to auscultation, normal breat h sounds Abdomen: non-tender, normal bowel sounds, soft Extremities: no edema, RT AKA Neuro/ELECTRICAL CONTROLS TECHNICIAN: alert, oriented X 3, normal speech Hemodialysis access: Type: AV fistula Location: left forearm Results Findings/Data: Laboratory Tests 05/1315 0136 Chemistry Sodium (134 - 147 mEq/L) [...] - 57 U/L) 185 H Laboratory Tests 05/13 0136 Coagulation INR (0.8 - 1.2) 1.2 PTT ([place]) (25.0 - 39.5 Seconds) 31.8 PT Patient/Control Mix (9.3 - 12.9 SECONDS) 12. 8 Laboratory Tests 05/13 04 0615 0136 Hematology WBC (4.5 - 11.0 x10 3/uL) [...] - 32.0 %) 9.1 L 11.0 L Rutherford % (Auto) (4.8 - 9.0 %) 11.0 H 10.4 H Eos % (Auto) (0.3 - 3.7 %) 6.8 H 5.3 H Baso % (Auto) (0.0 - 2.0 %) 0.3 0.3 Neut # (Auto) (2.0 - 7.6 x10 3/uL) 7.06 6.68 Lymph # (Auto) (1.0 - 3.8 x10 3/uL) 0.89 L 1.01 Rutherford # (Auto) (0.1 - 0.8 x10 3/uL) [...] x10 3/uL) 0.0 0 0.00 Laboratory Tests 05/13 0248 Serology SARS-CoV-2 Ag (Rapid) (Negative) Negative Laboratory Tests 05/13 0136 Toxicology Ethyl Alcohol (<10 mg/dL) < 3.0 Radiology data: Recent Impressions: CAT SCAN - CT HEAD/BRAIN W/O CONT 05/13 413 Report Impression - Status: SIGNED Entered: 05/13/2020 453 IMPRESSION: Mild diffuse age-appropriate atrophy is present [...] replaced. Due to short staffing today, w ill schedule him for dialysis tomorrow for this week. We will switch him to MWF from ne xt week. -Blood pressure currently stable and home medica tions restarted with holding parameters -Renal diet -Hemoglobin has been low. Start Epogen 3 times w amaklguillaume -Phos has been stable -Neurosurgery follow-up. Blood thinners on hold. We will follow-up Thank you for the consult Dr. Espino. at 0039 RPT #:[id number] END OF REPORT 2020-05-13 10:14:00-00:00 [facility] Neurosurgical Consultation REPORT#:[id number] REPORT STATUS: Signed DATE:05/13/20 TIME: 1014 PATIENT: DARIEN GROSSMAN UNIT #: [id number] ROOM/BED: [place] [address] : 45 AGE: 74 SEX: M ATTEND: Liliam Espino MD ADM AUTHOR: Malu Jones CALCINE 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 * ALL edits or amendments must be made on the [employer]/computer document * Malu Jones 05/13/20 1014: History [...] Documented: Result Date Time Pulse Ox 96 04/ 0600 B/P 144/64 / 0600 B/P Mean 92 / 0600 Pulse 64 / 0600 Resp 16 05/13 0600 Temp 98.1 [...] no distention Extremities: moves all, right AKA Neuro/ELECTRICAL CONTROLS TECHNICIAN: alert, oriented X 3, EOMI, PERRL, no [...] - 32.0 %) 9.1 L 11.0 L Rutherford % (Auto) (4.8 - 9.0 %) 11.0 H 10.4 H Eos % (Auto) (0.3 - 3.7 %) 6.8 H 5.3 H Baso % (Auto) (0.0 - 2.0 %) 0.3 0.3 Neut # (Auto) (2.0 - 7.6 x10 3/uL) 7.06 6.68 Lymph # (Auto) (1.0 - 3.8 x10 3/uL) 0.89 L 1.01 Rutherford # (Auto) (0.1 - 0.8 x10 3/uL) [...] TPAINTER-H Impression By: Nick Mays M.D. Modified Clarke Scale Modified Clarke Scale Prior Modified Clarke Scale: Prior Modified Clarke Scale: Response Value Prior Modified Clarke Scale Moderate disability 3 Total 3 Scores Doniphan Micah Coma Score: Copyright Sir Lucien Pratt [...] Baldwin MD on 04/03 at 1735 RPT #:[id number] END OF REPORT 2020-05-13 10:14:00-00:[address] [facility] ([facility]) Neurosurgical Consultation REPORT#:[id number] REPORT STATUS: Signed DATE:05/13/20 TIME: 101 PATIENT: DARIEN GROSSMAN UNIT #: [id number] ROOM/BED: [place] [address] : 45 AGE: 74 SEX: M ATTEND: Liliam Espino MD ADM AUTHOR: Malu Jones CALCINE 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 * ALL edits or amendments must be made on the [employer]/computer document * Malu Jones 05/13/20 1014: History [...] Documented: Result Date Time Pulse Ox 96 / 0600 B/P 144/64 / 0600 B/P Mean 92 / 0600 Pulse 64 / 0600 Resp 16 / 0600 Temp 98.1 05/13 0515 O2 Delivery [...] no distention Extremities: moves all, right AKA Neuro/ELECTRICAL CONTROLS TECHNICIAN: alert, oriented X 3, EOMI, PERRL, no [...] - 32.0 %) 9.1 L 11.0 L Rutherford % (Auto) (4.8 - 9.0 %) 11.0 H 10.4 H Eos % (Auto) (0.3 - 3.7 %) 6.8 H 5.3 H Baso % (Auto) (0.0 - 2.0 %) 0.3 0.3 Neut # (Auto) (2.0 - 7.6 x10 3/uL) 7.06 6.68 Lymph # (Auto) (1.0 - 3.8 x10 3/uL) 0.89 L 1.01 Rutherford # (Auto) (0.1 - 0.8 x10 3/uL) [...] TPAINTER-H Impression By: Nick Mays M.D. Modified Clarke Scale Modified Clarke Scale Prior Modified Clarke Scale: Prior Modified Alice Scale: Response Value Prior Modified Clarke Scale Moderate disability 3 Total 3 Scores [...] by Abraham Baldwin MD on 04/03 at 1739 Electronically Signed by Malu Jones NP on 0 05/14/20 at 1127 RPT #:[id number] END OF REPORT 2020-05-13 02:16:00-00:[address] [facility] ([facility]) Trauma - History Physical REPORT#:[id number] REPORT STATUS: Signed DATE:05/13/20 TIME: 215 PATIENT: DARIEN GROSSMAN UNIT #: [id number] ROOM/BED: : 45 AGE: 74 SEX: M ATTEND: Uzma Farnsworth und ADM DT: AUTHOR: Fausto Espino MD * ALL edits or amendments must be made on the el [employer]/computer document * History of Present Illness Time At Bedside )( Time at bedside: 0155 Pre-hospital Activation level: none Arrival mode: transfer Mechanism of injury: Fall: same level, from bed HPI Chief complaint: tired HPI: 74-year male with history of CAD on Plavix, end- stage renal disease, dyslipidemia, presents as a transfer from [place]. Patient reports that he had a fall 2 days ago between 2 wooden posts of a be d, there was head strike, unclear loss of [...] and he denies confusion. Patient is at [facility] due to a complication from a right kn ee arthroplasty. This was complicated by cellulitis and osteomyelitis that required a right AKA in F ebruary of this year. CT scan was performed [...] Temp 37.3 05/13 121 Pulse 78 05/13 121 Resp 17 05/13 121 24 hour I [...] tenderness or deformity right AK A noted Neuro/ELECTRICAL CONTROLS TECHNICIAN: alert, oriented X 3, no motor deficit s Micah Coma Score: Copyright Sir Lucien Pratt Copyright Sir Samina Pratt GCS Score: 15 Skin: dry, normal temperature Results Findings/Data: Laboratory Tests: 05/13 0136 Chemistry Sodium (134 - 147 mEq/L) [...] Coagulation INR (0.8 - 1.2) 1.2 PTT (Franklin) (25.0 - 39.5 Seconds) 31.8 PT Patient/Control [...] (Auto) (14.0 - 32.0 %) 11.0 L Rutherford % (Auto) (4.8 - 9.0 %) 10.4 H Eos % (Auto) (0.3 - 3.7 %) 5.3 H Baso % (Auto) (0.0 - 2.0 %) 0.3 Neut # (Auto) (2.0 - 7.6 x10 3/uL) 6.68 Lymph # (Auto) (1.0 - 3.8 x10 3/uL) 1.01 Rutherford # (Auto) (0.1 - 0.8 x10 3/uL) [...] < 3.0 Radiology data: CT's performed at [place] Ct head: 7 mm left parafalcine subdural [...] him is a family friend named Marin Kimbleall Current Medications Unable to obtain: Unable to [...] Espino MD on 04/03 at 0255 RPT #:[id number] END OF REPORT 2020-05-13 01:28:00-00:00 [facility] ([facility]) EMERGENCY PROVIDER REPORT REPORT#:[id number] REPORT STATUS: Signed DATE:05/13/20 TIME: 0128 PATIENT: DARIEN GROSSMAN UNIT #: [id number] ROOM/BED: [place] [address] AGE: 74 SEX: M PCP PHYS: No Primary or Family Ph ysician SERVICE AUTHOR: Bennett Farnsworth MD * ALL edits or amendments must be made on the el [employer]/computer document * HPI-Trauma Minor/Fall Free Text HPI Notes Free Text HPI Notes 74-year male with history of CAD on Plavix, end- stage renal disease, dyslipidemia, presents as a transfer fro [facility] for evaluation of a subdural hematoma. Patient [...] any numbness or weakness. Patient is at [facility] due to a complica tion from a [...] Score: Copyright Sir Lucien Pratt Copyright Sir Davin Pratt Eye opening: (4) Spontaneous Verbal response: [...] Temp 37.3 05/13 121 Pulse 78 05/13 121 Resp 17 05/13 121 Last Documented: Result Date Time Pulse Ox 98 05/13 225 B/P 151/74 05/13 225 B/P Mean 99 05/13 225 Pulse 74 05/13 225 Resp 17 05/13 225 O2 Delivery Room air 05/13 121 Temp 37.3 05/13 121 Review of Vital Signs Reviewed Free Text [...] Coagulation INR (0.8 - 1.2) 1.2 PTT (Franklin) (25.0 - 39.5 Seconds) 31.8 PT Patient/Control [...] (Auto) (14.0 - 32.0 %) 11.0 L Rutherford % (Auto) (4.8 - 9.0 %) 10.4 H Eos % (Auto) (0.3 - 3.7 %) 5.3 H Baso % (Auto) (0.0 - 2.0 %) 0.3 Neut # (Auto) (2.0 - 7.6 x10 3/uL) 6.68 Lymph # (Auto) (1.0 - 3.8 x10 3/uL) 1.01 Rutherford # (Auto) (0.1 - 0.8 x10 3/uL) [...] Text/Dict Note patient to be admitted to critical access hospital service for ongoing monitoring and repeat head CT for traumatic SDH. Trauma to consult neurosug judith. Time of Re-Eval 131 Re-Eval Status Unchanged ED Course Medication(s) Ordered Medication(s) Ordered: Cardiovascular Drugs Sig/Tatum Start time Last Medication Dose Route Stop Time Status Admin Hydralazine HCl 10 MG Q6H PRN PRN 05/13 244 AC 05/13 IV 06/12 0244 2154 Central Nervous System Agents Sig/Tatum Start time Last Medication Dose Route Stop Time Status Admin Levetiracetam 500 MG Q12HR 05/13 899 AC 05/14 PO 05/19 0901 2137 Acetaminophen 650 MG Q6H PRN PRN 05/13 024 AC PO 06/12 0244 Morphine Sulfate 4 [...] Result Date Time Pulse Ox 96 05/13 0122 B/P 163/72 05/13 0122 B/P Mean 102 / 0122 O2 Delivery Room air 05/13 012 Temp 37.3 05/13 0122 Pulse 78 04/ 0122 Resp 17 05/13 0122 Last Documented: Result Date Time Pulse Ox 98 05/13 0226 B/P 151/74 05/13 0226 B/P Mean 99 / 0226 Pulse 74 04/ 0226 Resp 17 / 0226 O2 Delivery Room air 05/13 012 Temp 37.3 / 0122 All vital signs available at the time [...] Bennett Farnsworth MD on at 0137 RPT #:[id number] END OF REPORT
[2022-09-08] MEDS ORDERED: NITROGLYCERIN 0.4 MG/TAB SL ONE (07:26)
[2022-09-08 07:33] LABS: Absolute Lymphocytes (CBC) 0.4 K/uL (0.7-4.9); Hematocrit 23.3 % (39.6-49.0); MCV 87.4 fL (80-100); Platelets 488 thou/uL (152-406); RBC Red Blood Cell Count 2.67 M/uL (4.33-5.43)
[2022-09-08 07:57] LABS: Albumin 2.8 g/dL (3.4-5.0); Bilirubin Direct 0.2 mg/dL (0-0.2); Bilirubin Indirect, Calculated 0.3 mg/dL (0.2-0.8); Bilirubin Total 0.5 mg/dL (0.2-1.0); Magnesium 2.1 mg/dL (1.6-2.4); Potassium 4.1 mEq/L (3.5-5.1)
--- NOTE | 2022-09-08 08:37 | EDPHYS ---
Physician Documentation [facility] Name: Amando Grossman Age: 76 yrs Sex: Male : 1945 Arrival Date: 09/08/2022 Time: 06:39 Bed 2 Private MD: ED Physician Valentino Michael HPI: 09/08 08:37 This 76 yrs old Male presents to ER via EMS with complaints of chest pain. ms3 08:37 . ms3 08:45 76-year-old male with past medical history of anxiety, depression, hyperlipidemia, ms3 end-stage renal disease on dialysis Saturday and Saturday presents for chest pain that began at 2 AM. Patient denies nausea vomiting. Patient endorses shortness of breath. Patient states his pain is a 3/10 described as pressure located substernally. Patient denies radiation of the pain. Historical: - Allergies: 07:03 "statins"; jb4 07:03 Iodine; topical is ok; jb4 07:03 PENICILLINS; jb4 07:03 Shellfish Containing Products; jb4 - Home Meds: 07:40 amitriptyline 10 mg Oral tablet daily [Active]; aspirin 81 mg Oral capsule daily hb [Active]; clopidogrel 75 mg Oral tablet daily [Active]; collagenase clostridium histolyticum topical [Active]; furosemide 40 mg/4 mL Oral solution daily [Active]; gabapentin 300 mg Oral capsule daily [Active]; losartan 50 mg Oral tablet 2 times per day [Active]; metoprolol succinate 25 mg Oral Tablet, Extended Release 24 hr daily [Active]; Miralax 17 gram Oral powder in packet daily [Active]; senna 8.6 mg Oral tablet daily [Active]; sertraline 50 mg Oral tablet daily [Active]; trazodone 150 mg Oral tablet daily [Active]; zolpidem 10 mg Oral tablet as needed [Active]; - PMHx: 07:03 Anxiety; Depression; High Cholesterol; Urinary Urgency; mascular degeneration; jb4 Hypertension; Dialysis <M and F; GERD; - PSHx: 07:03 R AKA; jb4 - Immunization history:: Adult Immunizations up to date. - Social history:: Smoking status: Patient denies any tobacco usage or history of. ROS: 08:45 Constitutional: Negative for fever, and chills. ms3 08:45 Respiratory: Negative for shortness of breath, cough, wheezing, and pleuritic chest pain, Abdomen/GI: Negative for abdominal pain, nausea, vomiting, diarrhea, and constipation, Back: Negative for injury and pain, MS/Extremity: Negative for injury and deformity, Skin: Negative for injury, rash, and discoloration. 08:45 Cardiovascular: Positive for chest pain. 08:45 All other systems are negative. Exam: 08:45 Constitutional: This is a well developed, well nourished patient who is awake, alert, ms3 and in no acute distress. Head/Face: Normocephalic, atraumatic. Neck: Trachea midline, no cervical lymphadenopathy. Supple, full range of motion without nuchal rigidity, or vertebral point tenderness. No Meningismus. Chest/axilla: Normal chest wall appearance and motion. Nontender with no deformity. Respiratory: Lungs have equal breath sounds bilaterally, clear to auscultation and percussion. No rales, rhonchi or wheezes noted. No increased work of breathing, no retractions or nasal flaring. Abdomen/GI: Soft, non-tender, with normal bowel sounds. No distension or tympany. No guarding or rebound. No evidence of tenderness throughout. Skin: Warm, dry with normal turgor. Normal color with no rashes, no lesions, and no evidence of cellulitis. 08:45 Cardiovascular: Rate: normal, Rhythm: regular, Pulses: no pulse deficits are appreciated, Heart sounds: murmur, systolic. 08:45 ECG was reviewed by the Attending Physician. Vital Signs: 06:56 BP 133 / 64; Pulse 87; Resp 16; Temp 98.8(O); Pulse Ox 98% on R/A; Weight 92.53 kg; jb4 Height 5 ft. 8 in. (R); Pain 0/10; 08:41 BP 149 / 70; Pulse 87; Resp 15; Pulse Ox 97% on R/A; hb 10:08 BP 127 / 61; Pulse 91; Resp 18; Pulse Ox 98% on R/A; ph 11:19 BP 124 / 65; Pulse 89; Resp 17; Pulse Ox 98% on R/A; Pain 4/10; hb 12:06 BP 133 / 65; Pulse 88; Resp 20; Pulse Ox 98% on R/A; hb 12:38 BP 126 / 83; Pulse 85; Resp 18; Temp 97.2; Pulse Ox 97% on R/A; ph 06:56 Body Mass Index 31.02 (92.53 kg, 172.72 cm) jb4 06:56 Pain Scale: Adult jb4 11:19 Pain Scale: Adult hb MDM: 07:05 Patient medically screened. ms3 08:51 Differential diagnosis: abnormal EKG, acute myocardial infarction, coronary artery ms3 disease pulmonary embolus, stable angina. HEART Score: History: Moderately Suspicious (1), ECG: Non specific repolarization disturbance / LBTB / PM (1), Age: > or = 65 years (2), Risk Factors: 1 or 2 risk factors (1), [Hypercholesterolemia] [Hypertension] Troponin: > 1 and < 3 x normal limit (1), Total Score = 6. The patient was not given aspirin in the Emergency Department. Patient reports taking aspirin within the past 24 hours. Data reviewed: vital signs, nurses notes, lab test result(s), EKG, radiologic studies, and as a result, I will admit patient. Consideration of Admission/Observation Patient was admitted/placed on observation. Management of patient was discussed with the following: Hospitalist: Dr Minaya. Director Of Community Center: Dr Momin- Patient to be admitted at [facility].. I considered the following discharge prescriptions or medication management in the emergency department Medications were administered in the Emergency Department. See MAR. Independent interpretation of the following test(s) in the Emergency Department EKG: See my EKG interpretation above compliance monitor: rate is 83 beats/min, Rhythm is paced rhythm with no ectopy, Interpretation: normal rate, paced. Care significantly affected by the following chronic conditions: Hypertension, Chronic Kidney Disease. Counseling: I had a detailed discussion with the patient and/or guardian regarding: the historical points, exam findings, and any diagnostic results supporting the discharge/admit diagnosis, lab results, radiology results, the need for further work-up and treatment in the hospital. Response to treatment: the patient's symptoms have mildly improved after treatment, and as a result, I will admit patient. 09/08 06:42 Order name: Basic Metabolic Panel; Complete Time: 08:06 rt 09/08 06:42 Order name: CBC with Diff; Complete Time: 09:05 rt 09/08 06:42 Order name: LFT's; Complete Time: 08:06 rt 09/08 06:42 Order name: Magnesium; Complete Time: 08:06 rt 09/08 06:42 Order name: NT PRO-BNP; Complete Time: 08:06 rt 09/08 06:42 Order name: Troponin HS; Complete Time: 08:06 rt 09/08 08:57 Order name: CBC Smear Scan; Complete Time: 09:05 EDMS 09/08 12:36 Order name: CBC with Automated Diff EDMS 09/08 12:36 Order name: CBC with Automated Diff EDMS 09/08 12:36 Order name: Comprehensive Metabolic Panel EDMS 09/08 12:36 Order name: Comprehensive Metabolic Panel EDMS 09/08 06:42 Order name: XRAY Chest (1 view); Complete Time: 08:55 rt 09/08 06:42 Order name: EKG; Complete Time: 06:43 rt 09/08 12:36 Order name: CONS Physician Consult EDMS 09/08 12:36 Order name: CONS Physician Consult EDMS 09/08 12:36 Order name: Regular EDMS 09/08 06:42 Order name: Cardiac monitoring; Complete Time: 06:56 rt 09/08 06:42 Order name: EKG - Nurse/Tech; Complete Time: 06:56 rt 09/08 06:42 Order name: IV Saline Lock; Complete Time: 07:27 rt 09/08 06:42 Order name: Labs collected and sent; Complete Time: 07:27 rt 09/08 06:42 Order name: O2 Per Protocol; Complete Time: 06:56 rt 09/08 06:42 Order name: O2 Sat Monitoring; Complete Time: 06:56 rt EC:45 Rate is 83 beats/min. Rhythm is regular. Left axis deviation noted. QRS interval is ms3 prolonged. Clinical impression: Paced. Interpreted by me. Reviewed by me. Administered Medications: 07:24 Drug: Nitroglycerin Sublingual 0.4 mg Route: Sublingual; hb 09:14 Drug: morphine IVP or IV 4 mg Route: IVP; Infused Over: 4 mins; Site: right hand; hb 09:14 Drug: Ondansetron IVP 4 mg Route: IVP; Site: right hand; hb Disposition Summary: 09/08/22 08:37 Hospitalization Ordered Hospitalization Status: Inpatient Admission ms3 Provider: Paolo Minaya ms3 Location: Telemetry/MedSurg (Inpatient) ms3 Condition: Stable ms3 Problem: new ms3 Symptoms: are unchanged ms3 Bed/Room Type: Standard ms3 Room Assignment: 209(09/08/22 12:38) ss Diagnosis - Chest pain, unspecified ms3 - Elevated troponin ms3 - Elevated BNP ms3 - Anemia, unspecified ms3 Forms: - Medication Reconciliation Form ms3 - SBAR form ms3 Signatures: Dispatcher [employer] EDLisa Chavis RN RN ss Selam Wu RN RN Reji Lopez RN RN jb4 Valentino Michael DO DO ms3 Travis Olivia MD MD rt Corrections: (The following items were deleted from the chart) 12:38 08:37 ms3 ss
--- NOTE | 2022-09-08 08:37 | ER ---
Nurse's Notes [facility] Name: Amando Grossman Age: 76 yrs Sex: Male : 1945 Arrival Date: 09/08/2022 Time: 06:39 Bed 2 Private MD: Diagnosis: Chest pain, unspecified;Elevated troponin;Elevated BNP;Anemia, unspecified Presentation: 09/08 06:56 Chief complaint: EMS states: PT reports chest pain that started at 0200, reports pain jb4 is a burning and pressure sensation. Pt took 324 of [employer] COORDINATOR of EMS. Gave 2 doses of sublingual nitro and pain resolved. Coronavirus screen: At this time, the client does not indicate any symptoms associated with coronavirus-19. Ebola Screen: No symptoms or risks identified at this time. Initial Sepsis Screen: Does the patient meet any 2 criteria? No. Patient's initial sepsis screen is negative. Does the patient have a suspected source of infection? No. Patient's initial sepsis screen is negative. Risk Assessment: Do you want to hurt yourself or someone else? Patient reports no desire to harm self or others. Onset of symptoms was September 08, 2022. Transition of care: patient was not received from another setting of care. 06:56 Method Of Arrival: EMS: [facility] jb4 06:56 Acuity: KELLY 3 jb4 Historical: - Allergies: 07:03 "statins"; jb4 07:03 Iodine; topical is ok; jb4 07:03 PENICILLINS; jb4 07:03 Shellfish Containing Products; jb4 - Home Meds: 07:40 amitriptyline 10 mg Oral tablet daily [Active]; aspirin 81 mg Oral capsule daily hb [Active]; clopidogrel 75 mg Oral tablet daily [Active]; collagenase clostridium histolyticum topical [Active]; furosemide 40 mg/4 mL Oral solution daily [Active]; gabapentin 300 mg Oral capsule daily [Active]; losartan 50 mg Oral tablet 2 times per day [Active]; metoprolol succinate 25 mg Oral Tablet, Extended Release 24 hr daily [Active]; Miralax 17 gram Oral powder in packet daily [Active]; senna 8.6 mg Oral tablet daily [Active]; sertraline 50 mg Oral tablet daily [Active]; trazodone 150 mg Oral tablet daily [Active]; zolpidem 10 mg Oral tablet as needed [Active]; - PMHx: 07:03 Anxiety; Depression; High Cholesterol; Urinary Urgency; mascular degeneration; jb4 Hypertension; Dialysis <M and F; GERD; - PSHx: 07:03 R AKA; jb4 - Immunization history:: Adult Immunizations up to date. - Social history:: Smoking status: Patient denies any tobacco usage or history of. Screenin:20 [facility] ED Fall Risk Assessment (Adult) Score/Fall Risk Level 0 - 2 = Low Risk hb Oriented to surroundings, Maintained a safe environment. Abuse screen: Denies threats or abuse. Denies injuries from another. Nutritional screening: No deficits noted. Tuberculosis screening: No symptoms or risk factors identified. Assessment: 07:20 General: Appears in no apparent distress. Behavior is calm, cooperative. Pain: Pain hb currently is 7 out of 10 on a pain scale. Neuro: Level of Consciousness is awake, alert, obeys commands, Oriented to person, place, time, situation. Cardiovascular: Reports chest pain, Patient's skin is warm and dry. Respiratory: Respiratory effort is even, unlabored, Respiratory pattern is regular, symmetrical. GI: No signs and/or symptoms were reported involving the gastrointestinal system. : No signs and/or symptoms were reported regarding the genitourinary system. EENT: No signs and/or symptoms were reported regarding the EENT system. Derm: Skin is pink, warm \\T\\ dry. Musculoskeletal: No signs and/or symptoms reported regarding the musculoskeletal system. 08:05 Reassessment: Pt states that his chest pain is back, 6/[address] Michael notified. No ss new orders at this time. 08:43 Reassessment: Patient appears in no apparent distress at this time. Patient and/or hb family updated on plan of care and expected duration. Pain level reassessed. Patient is alert, oriented x 3, equal unlabored respirations, skin warm/dry/pink. 10:08 Reassessment: Patient appears in no apparent distress at this time. Patient and/or ph family updated on plan of care and expected duration. Pain level reassessed. Patient is alert, oriented x 3, equal unlabored respirations, skin warm/dry/pink. 11:19 Reassessment: Patient appears in no apparent distress at this time. Patient and/or hb family updated on plan of care and expected duration. Pain level reassessed. Patient is alert, oriented x 3, equal unlabored respirations, skin warm/dry/pink. 12:05 Reassessment: Patient appears in no apparent distress at this time. Patient and/or hb family updated on plan of care and expected duration. Pain level reassessed. Patient is alert, oriented x 3, equal unlabored respirations, skin warm/dry/pink. Vital Signs: 06:56 BP 133 / 64; Pulse 87; Resp 16; Temp 98.8(O); Pulse Ox 98% on R/A; Weight 92.53 kg; jb4 Height 5 ft. 8 in. (R); Pain 0/10; 08:41 BP 149 / 70; Pulse 87; Resp 15; Pulse Ox 97% on R/A; hb 10:08 BP 127 / 61; Pulse 91; Resp 18; Pulse Ox 98% on R/A; ph 11:19 BP 124 / 65; Pulse 89; Resp 17; Pulse Ox 98% on R/A; Pain 4/10; hb 12:06 BP 133 / 65; Pulse 88; Resp 20; Pulse Ox 98% on R/A; hb 12:38 BP 126 / 83; Pulse 85; Resp 18; Temp 97.2; Pulse Ox 97% on R/A; ph 06:56 Body Mass Index 31.02 (92.53 kg, 172.72 cm) jb4 06:56 Pain Scale: Adult jb4 11:19 Pain Scale: Adult hb Vitals: 12:38 Cardiac Rhythm Assessment Paced. ph ED Course: 06:42 Patient arrived in ED. jb4 06:56 Valentino Michael DO is Attending Physician. ms3 07:03 Triage completed. jb4 07:03 Arm band placed on right wrist. jb4 07:20 Patient has correct armband on for positive identification. Bed in low position. Call hb light in reach. Side rails up X 1. Provided Education on: . 07:24 Inserted saline lock: 20 gauge hand, using aseptic technique. ,using aseptic technique. hb by NOEMI RN Blood collected. 07:59 XRAY Chest (1 view) In Process Unspecified. EDMS 08:35 Paolo Minaya MD is Hospitalizing Provider. ms3 11:19 Selam Wu, RN is Primary Nurse. hb 12:39 No provider procedures requiring assistance completed. Patient admitted, IV remains in ph place. Administered Medications: 07:24 Drug: Nitroglycerin Sublingual 0.4 mg Route: Sublingual; hb 09:14 Drug: morphine IVP or IV 4 mg Route: IVP; Infused Over: 4 mins; Site: right hand; hb 09:14 Drug: Ondansetron IVP 4 mg Route: IVP; Site: right hand; hb Medication: 07:20 VIS not applicable for this client. Outcome: 08:37 Decision to Hospitalize by Provider. ms3 13:29 Admitted to [facility] accompanied by tech, via wheelchair, with chart. 13:29 Condition: stable 13:29 Instructed on the need for admit. 13:31 Patient left the ED. Signatures: Dispatcher [employer] EDLisa Chavis RN RN Mercedes Salamanca RN RN Selam Wu RN RN Reji Lopez RN RN jb4 Valentino Michael, DO ms3
--- NOTE | 2022-09-08 08:51 | RAD REPORT ---
EXAM DESCRIPTION: RAD - Chest Single View - 09/08/2022 7:57 am CLINICAL HISTORY: CHEST PAIN Chest pain. COMPARISON: Chest Single View dated 08/13/2022; Chest Single View dated 02/10/2022; Chest Single View dated 01/22/2022; Chest Pa And Lat (2 Views) dated 08/31/2021 FINDINGS: Portable technique limits examination quality. Mild interstitial pulmonary edema seen. Small pleural effusions. The heart is significantly enlarged. Multi lead pacer/defibrillator device.. IMPRESSION: Mild CHF versus volume overload pattern.
[2022-09-08 08:57] LABS: Blood Morphology Comment NOT SEEN (NOT SEEN); Platelet Estimate INCR; White Blood Cell Scan OK (OK)
[2022-09-08] MEDS ORDERED: ONDANSETRON 4 MG/2 ML VIAL ONE (09:16)
[2022-09-08] MEDS ORDERED: MORPHINE 4 MG/ML SYR ONE (09:16)
[2022-09-08] MEDS ORDERED: NA CHLORIDE 0.9% 1,000 ML IV SCH (13:00)
[2022-09-08] MEDS: MORPHINE 2 MG/ML SYR IV PRN (13:43)
--- NOTE | 2022-09-08 14:53 | P.CNS ---
Date of Consult: 09/08/22 Reason for Consult: ESRd , fluid and elctrolytes management Chief Complaint: Chest Pain History of Present Illness: A 76-year-old male with history of ESRD on HD Saturday and Saturday Via lt AVF , CAD S/p PCI recently , hypertension, hyperlipidemia, and GERD Pt presented with Chest pain, symptoms started yesterday , pt stated that h had PCI X2 recently at [facility] , pain resolved after that ,but had another episode yesterday ROS General: weakness Head and Neck: No red eye. No ear pain. GI: denied nausea, voimiting or diarrhea : No polyuria. No dysuria. No hematuria. Respiratory: denied shortness of breath.or cough Cardiovascular:chest pain. leg swelling. Endocrine: No polydipsia. Skin: No rash. Neuro: denid weakness Musculoskeletal: Rt leg amputation Physical exam General: Awake, NAD HEENT: Atraumatic, Normocephalic Neck: Supple, no elevated JVD Respiratory: CTAB Cardiovascular: No rubs, No murmurs Gastrointestinal: Soft and benign, Non-distended Musculoskeletal:Rt AKA, Lt foot edema # ESRD on HD Saturday and Saturday next HD Saturday Renal diet Monitor renal panel #chest pain as per pt he had PCI X2 recently Cont home meds cardiac enzymes # Htn Cont home meds # Anemia of chronic disease will resume epogen Monitor H/H Foot edema Cont HD as above low salt diet #Total time spent 55 minutes including documentation, reviewing labs , placing orders and discussing plan of care with medical staff Allergies Iodinated Contrast Media [Iodinated Contrast- Oral and IV Dye] Allergy (Verified 11/24/21 11:44) Nausea/Vomiting/Diarrhea Penicillins Allergy (Verified 11/24/21 11:44) Hives shellfish derived Allergy (Verified 11/24/21 11:44) Nausea/Vomiting/Diarrhea Home Medications: Aspirin [Aspirin EC 81 MG] 81 mg PO DAILY 01/10/17 Celecoxib [Celebrex*] 100 mg PO DAILY 01/10/17 Fluticasone [Flovent Hfa 110*] 2 sprays IH BID 01/10/17 Niacin 500 mg PO DAILY 01/10/17 Pantoprazole [Protonix Tab*] 40 mg PO DAILY 01/10/17 Tamsulosin [Flomax*] 0.4 mg PO BEDTIME 01/10/17 Ubidecarenone/Vitamin E Mixed [Ndx37-Yky E 200 mg-20 Unit Sfg] 1 each PO DAILY 01/10/17 Vit A/Vit C/Vit E/Zinc/Copper [Icaps Areds Formula Dr Tablet] 1 each PO DAILY 01/10/17 Zolpidem Tartrate [Ambien*] 10 mg PO BEDTIME PRN PRN 01/10/17 Losartan Potassium 25 mg PO DAILY 08/14/22 Metoprolol Tartrate 25 mg PO BID 08/14/22 - Past Medical/Surgical History Diabetic: No -: ESRD on HD MWF -: Hyperlipidemia -: GERD -: Hypertension -: Depression/Anxiety -: Macular Degeneration -: RT AKA -: [id number] PPM Psychosocial/ Personal History: Patient lives at home with his family. - Family History Father Medical History: Heart disease Mother Medical History: Lung disease - Social History Smoking Status: Unknown if ever smoked Alcohol use: No CD- Drugs: No Caffeine use: Yes Place of Residence: Home Physical Examination Temp Pulse Resp BP Pulse Ox 97.2 F 85 18 126/83 09/08/22 12:38 09/08/22 12:38 09/08/22 14:13 09/08/22 12:38 Laboratory Data (last 24 hrs) 09/08/22 09/08/22 07:23 07:23 WBC 10.60 Hgb 7.9 L Hct 23.3 L Plt Count 488 H Sodium 136 Potassium 4.1 BUN 19 H Creatinine 3.38 H Glucose 98 Magnesium 2.1 Total Bilirubin 0.5 AST 21 ALT 28 Alkaline Phosphatase 143 H
[2022-09-08] MEDS ORDERED: METOPROLOL TAR 25 MG TAB PO ONE (16:00)
[2022-09-08] MEDS ORDERED: METOPROLOL TAR 25 MG TAB PO SCH (21:00)
[2022-09-08] MEDS: ZOLPIDEM TARTRATE 10 MG TABLET PO PRN (21:08)
[2022-09-08] MEDS: TAMSULOSIN 0.4 MG SR CAP PO SCH (21:08)
[2022-09-08] MEDS ORDERED: TICAGRELOR 90 MG TABLET PO STA (21:08)
--- NOTE | 2022-09-08 21:08 | P.HP ---
Certification for Inpatient Patient admitted to: Observation With expected LOS: <2 Midnights Patient will require the following post-hospital care: Home Health Services Practitioner: I am a practitioner with admitting privileges, knowledge of patient current condition, hospital course, and medical plan of care. Services: Services provided to patient in accordance with Admission requirements found in Title 42 Section 412.3 of the Code of Federal Regulations Patient History Date of Service: 09/08/22 Reason for admission: Chest Pain History of Present Illness: Patient is a 76-year-old gentleman came to the hospital chest discomfort. Patient recently was transferred to [facility] as he was having a non ST elevation myocardial infarction and he had couple of stents placed according to the patient. He has been on Brilinta and he has been holiness about taking his medications. Started having some chest pain he came into the emergency room for further evaluation. Patient also has a history of end-stage renal disease. Patient will be admitted to the hospital for observation. Allergies Iodinated Contrast Media [Iodinated Contrast- Oral and IV Dye] Allergy (Verified 11/24/21 11:44) Nausea/Vomiting/Diarrhea Penicillins Allergy (Verified 11/24/21 11:44) Hives shellfish derived Allergy (Verified 11/24/21 11:44) Nausea/Vomiting/Diarrhea Home Medications: Aspirin [Aspirin EC 81 MG] 81 mg PO DAILY 01/10/17 Celecoxib [Celebrex*] 100 mg PO DAILY 01/10/17 Fluticasone [Flovent Hfa 110*] 2 sprays IH BID 01/10/17 Niacin 500 mg PO DAILY 01/10/17 Pantoprazole [Protonix Tab*] 40 mg PO DAILY 01/10/17 Tamsulosin [Flomax*] 0.4 mg PO BEDTIME 01/10/17 Ubidecarenone/Vitamin E Mixed [Sdn34-Sti E 200 mg-20 Unit Sfg] 1 each PO DAILY 01/10/17 Vit A/Vit C/Vit E/Zinc/Copper [Icaps Areds Formula Dr Tablet] 1 each PO DAILY 01/10/17 Zolpidem Tartrate [Ambien*] 10 mg PO BEDTIME PRN PRN 01/10/17 Losartan Potassium 25 mg PO DAILY 08/14/22 Metoprolol Tartrate 25 mg PO BID 08/14/22 - Past Medical/Surgical History Has patient received pneumonia vaccine in the past: Yes Diabetic: No -: ESRD on HD MWF -: Hyperlipidemia -: GERD -: Hypertension -: Depression/Anxiety -: Macular Degeneration -: RT AKA -: [id number] PPM Psychosocial/ Personal History: Patient lives at home with his family. - Family History Father Medical History: Heart disease Mother Medical History: Lung disease - Social History Alcohol use: No CD- Drugs: No Caffeine use: Yes Place of Residence: Home Review of Systems 10-point ROS is otherwise unremarkable Physical Examination - Vital Signs Temperature: 97.9 F Blood Pressure: 122/59 Pulse: 71 Respirations: 18 Pulse Ox (%): 94 - Physical Exam General: Alert, In no apparent distress, Oriented x3 HEENT: Atraumatic, PERRLA, Mucous membr. moist/pink, EOMI, Sclerae nonicteric Neck: Supple, 2+ carotid pulse no bruit, No LAD, Without JVD or thyroid abnormality Respiratory: Clear to auscultation bilaterally, Normal air movement Cardiovascular: Regular rate/rhythm, Normal S1 S2, No murmurs Gastrointestinal: Normal bowel sounds, Soft and benign, Non-distended, No tenderness Musculoskeletal: No clubbing, No swelling, No tenderness Integumentary: No rashes Neurological: Normal gait, Normal speech, Normal strength at 5/5 x4 extr, Normal tone, Sensation intact, Cranial nerves 3-12 intact, Normal affect Lymphatics: No axilla or inguinal lymphadenopathy - Studies Laboratory Data (last 24 hrs) 09/08/22 09/08/22 07:23 07:23 WBC 10.60 Hgb 7.9 L Hct 23.3 L Plt Count 488 H Sodium 136 Potassium 4.1 BUN 19 H Creatinine 3.38 H Glucose 98 Magnesium 2.1 Total Bilirubin 0.5 AST 21 ALT 28 Alkaline Phosphatase 143 H Assessment & Plan - Problems (Diagnosis) (1) Presence of stent in coronary artery in patient with coronary artery disease Current Visit: Yes Status: Acute (2) End stage chronic kidney disease Current Visit: No Status: Chronic (3) Hemodialysis patient Current Visit: No Status: Chronic (4) Hyperlipidemia Current Visit: No Status: Chronic Qualifiers: Hyperlipidemia type: unspecified Qualified Code(s): E78.5 - Hyperlipidemia, unspecified (5) Hypertension Current Visit: No Status: Chronic Qualifiers: Hypertension type: primary hypertension Qualified Code(s): I10 - Essential (primary) hypertension - Plan 1. Serial troponins and EKG 2. Cardiology and Nephrology consultation 3. HD per Nephrology 4. Anti-platelet therapy, beta-manuel, statin, and O2 as needed 5. IV morphine for pain 6. Monitor H&H Discharge Plan: Home Plan to discharge in: 24 Hours - Advance Directives Does patient have a Living Will: Yes Does patient have a Durable POA for Healthcare: Yes - Code Status/Comfort Care Code Status Assessed: Yes Code Status: Full Code Critical Care: No Time Spent Managing PTS Care (In Minutes): 45
[2022-09-09] MEDS ORDERED: MIDODRINE HCL 5 MG TABLET PO PRN (00:09)
[2022-09-09] MEDS: MORPHINE 2 MG/ML SYR IV PRN ×4 (02:53→15:11)
[2022-09-09 03:48] LABS: Absolute Lymphocytes (CBC) 0.6 K/uL (0.7-4.9); Hematocrit 22.7 % (39.6-49.0); Lymphocytes % 6.8 % (15.3-44.8); MCV 88.7 fL (80-100); MPV 6.1 fL (7.6-11.3); Platelets 453 thou/uL (152-406); RBC Red Blood Cell Count 2.56 M/uL (4.33-5.43)
[2022-09-09 04:07] LABS: Albumin 2.6 g/dL (3.4-5.0); Bilirubin Total 0.4 mg/dL (0.2-1.0); Potassium 4.4 mEq/L (3.5-5.1); Protein, Total 6.3 g/dL (6.4-8.2)
[2022-09-09 05:01] LABS: RBC Red Blood Cell Count 2.54 M/uL (4.33-5.43)
[2022-09-09 05:34] LABS: Magnesium 2.2 mg/dL (1.6-2.4)
[2022-09-09 05:40] LABS: Troponin High Sensitivity 212.6 pg/mL (<58.9)
[2022-09-09] MEDS: ONDANSETRON 4 MG/2 ML VIAL IV PRN (08:00)
[2022-09-09] MEDS: ASPIRIN EC 81 MG TAB PO SCH (08:02)
[2022-09-09] MEDS: TICAGRELOR 90 MG TABLET PO SCH ×2 (08:02→20:23)
[2022-09-09] MEDS: METOPROLOL TAR 25 MG TAB PO SCH ×2 (08:02→20:22)
[2022-09-09] MEDS: SERTRALINE HCL 50 MG TAB PO SCH (08:03)
[2022-09-09] MEDS: PANTOPRAZOLE 40MG TABLET PO SCH (08:03)
--- NOTE | 2022-09-09 13:11 | EKG ---
Test Date: 2022-09-08 Test Time: 15:20:48 Spinning Frame Fixer: JIHAN MEASUREMENT RESULTS: Intervals: Rate: 95 OK: 176 QRSD: 156 QT: 446 QTc: 560 [place]: P: 48 OK: 176 QRS: -89 T: 83 INTERPRETIVE STATEMENTS: Normal sinus rhythm Left axis deviation Right bundle branch block Inferior infarct, age undetermined Anterolateral infarct, age undetermined Abnormal ECG Compared to ECG 08/14/2022 12:47:38 Left-axis deviation now present Right bundle-branch block now present Myocardial infarct finding now present Ventricular-paced complex(es) or rhythm no longer present Electronically Signed On 09-09-22 13:10:11 CDT by Palomo Momin
--- NOTE | 2022-09-09 13:12 | EKG ---
Test Date: 2022-09-08 Test Time: 06:52:39 Intake Rn: COLLIN MEASUREMENT RESULTS: Intervals: Rate: 83 W[place]: 184 QRSD: 158 QT: 474 QTc: 556 [place]: P: 49 WY: 184 QRS: -88 T: 69 INTERPRETIVE STATEMENTS: Normal sinus rhythm Left axis deviation Right bundle branch block Inferior infarct, age undetermined Anteroseptal infarct, age undetermined Abnormal ECG Compared to ECG 08/14/2022 12:47:38 Left-axis deviation now present Right bundle-branch block now present Myocardial infarct finding now present Ventricular-paced complex(es) or rhythm no longer present Electronically Signed On 09-09-22 13:10:40 CDT by Palomo Momin
--- NOTE | 2022-09-09 13:36 | CON ---
Date of Consultation: 09/09/2022 Reason For Consultation: Chest pain. History Of Present Illness: A 76-year-old male, who had a recent elevation myocardial infarction, st atus post complex PCI with Impella support at [facility] recently, comes in with chest pain, pressure l keyana, radiates to his neck. Troponin slightly elevated. Past Medical History: Coronary artery disease, hypertension, dyslipidemia, aortic valve stenosis, an d peripheral vascular disease. He has end-stage renal disease. Medications: Refer to reconciliation sheet for detailed list. Allergies: IODINE, PENICILLIN. Family History: No premature coronary artery disease or cancer. Social History: He does not smoke or drink. Does not use any drugs. Review of Systems: All systems reviewed and they were negative except what mentioned in HPI. Physical Examination: Vital Signs: Reviewed. Head and Neck: Pupils are equal, reactive to light. Intact eye movements. No JVD. No cervical lym phadenopathy. Neck is supple. Thyroid is not enlarged. Lungs: Clear to auscultation bilaterally. No rhonchi, wheezing, or crackles. No accessory muscle u se. Heart: Irregular with aortic systolic ejection murmur, late-peaking. Abdomen: Soft, nontender. Bowel sounds positive. No organomegaly. No masses or hernia. No rigidi ty or rebound. Extremities: No edema, clubbing, or cyanosis. Intact pulses. Skin: No rash. Neurologic: Alert, awake, oriented x3. No acute focal deficits appreciated. Investigations: Troponin peaked at 212. BUN 23, creatinine 4.1, and hemoglobin 7.5. Assessment And Recommendations: 1.Chest pain with elevated troponins, could be non-ST segment elevation myocardial infarction. Plan for coronary angiogram tomorrow. 2.Aortic valve stenosis with late-peaking murmur probably severe and on previous echo, it was noted that it is severe. The plan for left and right heart catheterization tomorrow and initiation of a st ep to do an aortic valve replacement, transcatheter path. 3.Coronary artery disease with positive troponin. Continue aspirin and Brilinta, status post recent percutaneous coronary intervention and coronary angiogram tomorrow due to active symptoms. 4.End-stage renal disease, on hemodialysis. SR/MODL Voice ID: [id number] Report ID: [id number]
--- NOTE | 2022-09-09 13:52 | P.PN ---
Subjective Date of Service: 09/09/22 Chief Complaint: Chest Pain A 76-year-old male with history of ESRD on HD Saturday and Saturday Via lt AVF , CAD S/p PCI recently , hypertension, hyperlipidemia, and GERD Pt presented with Chest pain, symptoms started yesterday , pt stated that h had PCI X2 recently at [facility] , pain resolved after that ,but had another episode yesterday Today No overnight events HD tomorrow plan for cardiac catheterization A/P # ESRD on HD Saturday and Saturday next HD Saturday Renal diet Monitor renal panel #chest pain as per pt he had PCI X2 recently Cont home meds cardiac enzymes plan for cardiac catheterization # Htn Cont home meds # Anemia of chronic disease will resume epogen Monitor H/H Foot edema Cont HD as above low salt diet #Total time spent 55 minutes including documentation, reviewing labs , placing orders and discussing plan of care with medical staff Physical Examination - Vital Signs Temperature: 98.2 F Blood Pressure: 118/58 Pulse: 70 Respirations: 18 Pulse Ox (%): 95
[2022-09-09] MEDS ORDERED: NITROGLYCERIN 1 GM PKT TD ONE (17:54)
[2022-09-09] MEDS: TAMSULOSIN 0.4 MG SR CAP PO SCH (20:23)
[2022-09-09] MEDS: ZOLPIDEM TARTRATE 10 MG TABLET PO PRN (20:24)
[2022-09-10] MEDS: MORPHINE 2 MG/ML SYR IV PRN ×3 (01:23→13:30)
[2022-09-10] MEDS ORDERED: MORPHINE 2 MG/ML SYR IV ONE (04:26)
[2022-09-10 04:36] LABS: Hepatitis B Surface Ab - Quant 5.49 mIU/mL (<8.0); Hepatitis B surface AG Interp. Nonreactive (Nonreactive)
[2022-09-10] MEDS: ONDANSETRON 4 MG/2 ML VIAL IV PRN (05:10)
[2022-09-10 05:15] LABS: Absolute Lymphocytes (CBC) 0.5 K/uL (0.7-4.9); Hematocrit 23.2 % (39.6-49.0); Lymphocytes % 5.5 % (15.3-44.8); MCV 88.5 fL (80-100); MPV 6.2 fL (7.6-11.3); Platelets 472 thou/uL (152-406); RBC Red Blood Cell Count 2.63 M/uL (4.33-5.43)
[2022-09-10 05:27] LABS: Blood Morphology Comment NOT SEEN (NOT SEEN); Platelet Estimate INCR
[2022-09-10 05:28] LABS: Magnesium 2.4 mg/dL (1.6-2.4); Potassium 4.5 mEq/L (3.5-5.1)
[2022-09-10] MEDS: ASPIRIN EC 81 MG TAB PO SCH (08:55)
[2022-09-10] MEDS: METOPROLOL TAR 25 MG TAB PO SCH ×2 (08:55→21:51)
[2022-09-10] MEDS: SERTRALINE HCL 50 MG TAB PO SCH (08:56)
[2022-09-10] MEDS: PANTOPRAZOLE 40MG TABLET PO SCH (08:56)
[2022-09-10] MEDS: TICAGRELOR 90 MG TABLET PO SCH ×2 (09:06→21:51)
--- NOTE | 2022-09-10 11:19 | P.PN ---
Subjective Date of Service: 09/09/22 Still having some chest pain spoke with cardiology. Concern for stable angina. Patient recently with stent placement. Also concern for restenosis. Cardiac catheterization in a.m. Review of Systems 10-point ROS is otherwise unremarkable Physical Examination - Vital Signs Temperature: 98.4 F Blood Pressure: 123/57 Pulse: 84 Respirations: 17 Pulse Ox (%): 98 - Physical Exam General: Alert, In no apparent distress HEENT: Atraumatic, PERRLA, EOMI Neck: Supple, JVD not distended Respiratory: Clear to auscultation bilaterally, Normal air movement Cardiovascular: Regular rate/rhythm, Normal S1 S2 Gastrointestinal: Normal bowel sounds, No tenderness Musculoskeletal: No tenderness Integumentary: No rashes Neurological: Normal speech, Normal tone, Normal affect Lymphatics: No axilla or inguinal lymphadenopathy - Studies Medications List Reviewed: Yes Assessment & Plan - Problems (Diagnosis) (1) Presence of stent in coronary artery in patient with coronary artery disease Current Visit: Yes Status: Acute (2) End stage chronic kidney disease Current Visit: No Status: Chronic (3) Hemodialysis patient Current Visit: No Status: Chronic (4) Hyperlipidemia Current Visit: No Status: Chronic Qualifiers: Hyperlipidemia type: unspecified Qualified Code(s): E78.5 - Hyperlipidemia, unspecified (5) Hypertension Current Visit: No Status: Chronic Qualifiers: Hypertension type: primary hypertension Qualified Code(s): I10 - Essential (primary) hypertension - Plan 1. Serial troponins and EKG 2. Cardiology and Nephrology consultation 3. HD per Nephrology 4. Anti-platelet therapy, beta-manuel, statin, and O2 as needed 5. Plan for cardiac catheterization in a.m. 6. Monitor H&H - Advance Directives Does patient have a Living Will: Yes Does patient have a Durable POA for Healthcare: Yes - Code Status/Comfort Care Code Status: Full Code
[2022-09-10] MEDS ORDERED: SOD FERRIC GLUC COMPLX/SUCROSE 125 MG in NA CHLORIDE 0.9% 100 ML IV ONE (11:23)
[2022-09-10] MEDS ORDERED: NA CHLORIDE 0.9% 500 ML ONE (15:26)
[2022-09-10] MEDS ORDERED: HEPA 1000U/500MLS 2,000 UNIT/1,000 ML BAG IV ONE (15:46)
[2022-09-10] MEDS ORDERED: FENTANYL CITR 100 MCG/2 ML ONE ×2 (15:46→17:48)
[2022-09-10] MEDS ORDERED: LIDOCAINE 1% 20 ML MDV ONE (15:46)
[2022-09-10] MEDS ORDERED: HEPARIN 5000 UNIT/ML 1 ML VIAL ONE (15:47)
[2022-09-10] MEDS ORDERED: MIDAZOLAM HCL 2 MG/2 ML INJ ONE ×2 (15:47→18:03)
[2022-09-10] MEDS ORDERED: ASPIRIN 325 MG TAB ONE ×2 (15:47→18:21)
[2022-09-10] MEDS ORDERED: VERAPAMIL HCL 10 MG/4 ML VIAL IV ONE (15:47)
[2022-09-10] MEDS ORDERED: CLOPIDOGREL 75 MG TABLET ONE ×2 (15:47→18:20)
[2022-09-10] MEDS ORDERED: ATROPINE SULF 1 MG/10 ML SYR IV ONE (15:48)
[2022-09-10] MEDS ORDERED: TICAGRELOR 90 MG TABLET PO ONE (15:48)
[2022-09-10] MEDS ORDERED: HEPARIN 10,000 UNIT/10 ML VIAL IV ONE (15:48)
[2022-09-10] MEDS ORDERED: METHYLPREDNISOLONE 125 MG INJ ONE (15:51)
[2022-09-10] MEDS ORDERED: DIPHENHYDRAMINE 50 MG/ML VIAL ONE (15:51)
[2022-09-10] MEDS ORDERED: HEPA 1000U/500MLS 1,000 UNIT/500 ML BAG IV ONE ×2 (17:41→18:03)
[2022-09-10] MEDS ORDERED: NITROGLYCERIN 0.4 MG/TAB SL ONE (18:34)
--- NOTE | 2022-09-10 19:02 | OP ---
Date of Procedure: 09/10/2022 Surgeon: TAM ZARAGOZA Procedures Performed: 1.Selective coronary angiogram. 2.Left heart catheterization. 3.Right heart catheterization. 4.PCI for critical ostial left main stenosis, used 4.0 x 8 mm Synergy drug-eluting stent. Indications: 1.Non-ST elevation myocardial infarction. 2.Aortic valve stenosis. Access: 1.Right radial artery 6-Moldovan closed with TR band. 2.Right IJ 7-Moldovan closed with manual pressure. Complications: None. Bleeding: Less than 50 mL. Anesthesia: Total sedation time was 1 hour. Description Of Procedure: After risks, benefits, alternatives were explained, the patient agreed to procedure and signed informed consent. The patient was brought into the cardiac catheterization [facility], prepped and draped in the usual sterile fashion. Then, I accessed right radial artery using pediatric micropuncture kit and placed a 6-Moldovan Slender sheath and then I accessed right IJ using m icropuncture kit, ultrasound guidance and placed a 7-Moldovan [place] sheath and took a 7-Moldovan ballo on-tipped Brimson catheter to the right atrium, right ventricle, pulmonary artery and wedge and measured pressures and waveform was obtained and then thermodilution of cardiac output was obtained and I rem lynnette the Brimson catheter and then I took 5-Moldovan [place] 4.0 catheter into the aortic root, engaged left main and right coronary artery, took standard views and then exchanged for a long catheter across th e aortic valve and measured the LVEDP, pullback did not record any significant gradient. Then, I too k a 6-Moldovan JL3.5 guide into the aortic root over a J-wire, engaged left main, gave systemic heparin to assure ACT level above 250. The patient already on Brilinta and aspirin and then I pre-dilated t he ostial left main using a 4.0 NC balloon with a quick inflation as the engagement of the diagnostic catheter showed significant drop in the blood pressure suggestive of severe stenosis and then I plac ed a 4.0 x 8 mm Synergy drug-eluting stent to overlap with other stent with excellent results. I the n removed the wire and the guide and sheath, placed TR band with good hemostasis. The IJ sheath was removed and placed manual pressure with good hemostasis. Findings: 1.Selective coronary angiogram. Ostial left main 80%, I believe he had a recent stent of the left m ain with Impella at the medical center, but the ostium was missed, so I placed the stent 4.0 x 8 mm S ynergy drug-eluting stent with excellent results. 2.LAD is with luminal irregularities and diagonal branches with luminal regularities. 3.Left circumflex; it is proximal 40%, otherwise luminal irregularities. 4.RCA; proximal 30% and then patent stent. 5.Elevated LVEDP at 35 mmHg. Right heart catheterization numbers: RA pressure is 11. RV pressure was 54/4 with a mean of 14. PA pressure was 55/22 with mean of 38. Pulmonary wedge pressure was 21 and LVEDP was 35 mmHg, and ther e was no significant gradient on pullback. Conclusions: 1.Severe ostial left main stenosis, status post successful PCI as above. 2.No significant aortic valve stenosis. 3.Severely elevated LVEDP. We will send the patient to urgent dialysis. /J LUIS Voice ID: [id number] Report ID: [id number]
[2022-09-10] MEDS ORDERED: EPOETIN ALFA-EPBX 10,000 UNIT/ML VIAL ONE (21:04)
[2022-09-10] MEDS: EPOETIN ALFA 10,000 UNIT/ML VIAL IV SCH (21:30)
[2022-09-10] MEDS: TAMSULOSIN 0.4 MG SR CAP PO SCH (21:51)
[2022-09-11] MEDS: ZOLPIDEM TARTRATE 10 MG TABLET PO PRN ×2 (00:07→20:15)
--- NOTE | 2022-09-11 02:39 | P.PN ---
Date of Service: 09/10/22 Subjective Patient was taken to the operating room and patient was found to have an occlusion of the left ostium. This was stented per cardiology. Concern for valvular disease of the aortic valve. Patient evaluated and no significant gradient. Patient does not have aortic valve stenosis. Patient was dialyzed and patient is doing well clinically. Anticipate discharge in a.m. Physical Examination - Vital Signs reviewed - Physical Exam General: Alert, In no apparent distress Respiratory: Clear to auscultation bilaterally, Normal air movement Cardiovascular: Regular rate/rhythm, Normal S1 S2 Gastrointestinal: Normal bowel sounds, No tenderness Neurological: Normal speech, Normal tone, Normal affect Assessment & Plan - Problems (Diagnosis) (1) Presence of stent in coronary artery in patient with coronary artery disease; Angina Current Visit: Yes Status: Acute (2) End stage chronic kidney disease Current Visit: No Status: Chronic (3) Hemodialysis patient Current Visit: No Status: Chronic (4) Hyperlipidemia Current Visit: No Status: Chronic Qualifiers: Hyperlipidemia type: unspecified Qualified Code(s): E78.5 - Hyperlipidemia, unspecified (5) Hypertension Current Visit: No Status: Chronic Qualifiers: Hypertension type: primary hypertension Qualified Code(s): I10 - Essential (primary) hypertension - Plan Continue with plan of care as mentioned below: 1. Serial troponins Were trending downward. Patient status post cardiac catheterization and occlusion of the left ostium which was dilated and stented. 2. Cardiology and Nephrology consultation appreciated 3. HD per Nephrology so patient could be dialyzed after cardiac catheterization. 4. Anti-platelet therapy, beta-manuel, statin, and O2 as needed 5. Premedicated prior to cardiac catheterization with steroids. Monitor for contrast allergy. 6. Monitor H&H - Advance Directives Does patient have a Living Will: Yes Does patient have a Durable POA for Healthcare: Yes - Code Status/Comfort Care Code Status: Full Code
--- NOTE | 2022-09-11 03:48 | PN ---
Date of Progress Note: 09/10/2022 Chief Complaint: End-stage renal disease, on hemodialysis. History Of Present Illness: Patient presented to the hospital because of chest pain. He has history of intradialytic hypotension, chronic hypotension, and bradycardia. Previously, he underwent PCI fo r coronary artery disease. He is scheduled to have cardiac catheterization today. After cardiac cat heterization he needs to have start the hemodialysis. He has history of allergy to IV contrast and C ardiologist ordering Benadryl and steroids prior the procedure. Patient is transferred to ICU after cardiac catheterization. He is not undergoing start hemodialysis. Patient is stable during dialysis . Plan is to re-evaluate electrolytes after dialysis is done in the morning. Review of Systems: Patient denies complaints. Physical Examination: Lungs: Clear to auscultation bilaterally. Heart: S1, S2. Abdomen: Soft. Extremities: No edema. Impression And Plan: 1.End-stage renal disease, on hemodialysis. The patient had IV contrast exposure with cardiac heath terization today. A workup with cardiac catheterization was initiated by vehicle technician. Recent histo ry of recurrent angina and chest pain. Patient will have electrolytes revaluated to check potassium level. Patient is tolerating hemodialysis. Ultrafiltration is minimal for volume control. 2.Hypertension. Continue blood pressure medication. Intradialytic hypotension. Monitor blood pres sure during dialysis. 3.Edema. Low-sodium diet was initiated. Continue p.o. fluid restriction. Ultrafiltration with mio lysis as tolerated. EB/MODL Voice ID: [id number] Report ID: [id number]
[2022-09-11 05:09] LABS: Absolute Lymphocytes (CBC) 0.2 K/uL (0.7-4.9); Hematocrit 25.6 % (39.6-49.0); MCV 88.2 fL (80-100); MPV 6.4 fL (7.6-11.3); Platelets 440 thou/uL (152-406)
[2022-09-11 05:19] LABS: Potassium 4.3 mEq/L (3.5-5.1)
[2022-09-11] MEDS: MORPHINE 2 MG/ML SYR IV PRN ×4 (05:56→18:04)
[2022-09-11] MEDS ORDERED: NITROGLYCERIN 0.4 MG/TAB SL ONE (08:39)
[2022-09-11] MEDS: ASPIRIN EC 81 MG TAB PO SCH ×2 (08:58→08:59)
[2022-09-11] MEDS: SERTRALINE HCL 50 MG TAB PO SCH (08:58)
[2022-09-11] MEDS: TICAGRELOR 90 MG TABLET PO SCH ×2 (08:58→20:14)
[2022-09-11] MEDS: PANTOPRAZOLE 40MG TABLET PO SCH (08:59)
[2022-09-11] MEDS: METOPROLOL TAR 25 MG TAB PO SCH ×2 (09:05→20:15)
[2022-09-11] MEDS: NITROGLYCERIN 0.1 MG/HR (2.5 MG) PATCH TD SCH (10:08)
--- NOTE | 2022-09-11 10:33 | P.PN ---
Subjective Date of Service: 09/11/22 Chief Complaint: Chest Pain This morning, he reports intermittent episodes of chest pain. He describes the pain as crushing. The pain is occurring without any obvious inciting or alleviating factors. Spoke with Dr. Momin, who recommended obtaining a stat transthoracic echocardiogram, starting heparin drip, and ordering topical nitroglycerin. He denies any shortness of breath, palpitations, nausea, or vomiting. Review of Systems 10-point ROS is otherwise unremarkable Cardiovascular: Chest Pain Physical Examination - Vital Signs Temperature: 98 F Blood Pressure: 132/57 Pulse: 85 Respirations: 15 Pulse Ox (%): 100 - Physical Exam General: Alert, In no apparent distress, Oriented x3 HEENT: Atraumatic, Mucous membr. moist/pink, Sclerae nonicteric Neck: JVD not distended Respiratory: Clear to auscultation bilaterally, Normal air movement Cardiovascular: No edema, Regular rate/rhythm, Normal S1 S2, Systolic murmur Gastrointestinal: Normal bowel sounds, Soft and benign, Non-distended, No tenderness, No rebound, No guarding Musculoskeletal: Other (s/p right AKA) Integumentary: No rashes Neurological: Normal speech, Normal affect - Studies Medications List Reviewed: Yes Assessment And Plan - Plan # Non-ST Segment Elevation Myocardial Infarction # Coronary Artery Disease s/p recent PCI # Hypertension # Hyperlipidemia - Evaluation thus far: - EKG: LBBB, without STEMI criteria, trend - Serial troponin: 101.0 -> 212.6 -> 211.5 -> 148.6 - Ordered transthoracic echocardiogram - Chest x-ray = "Mild CHF versus volume overload pattern." - Management plan: - Consult Cardiology and spoke with Dr. Momin - recommendations appreciated - S/P LHC/RHC (09/10) = "PCI for critical ostial left main stenosis, used 4.0 x 8 mm Synergy drug-eluting stent." - Continue aspirin, ticagrelor, metoprolol - Resume home losartan - Started atorvastatin # End-Stage Renal Disease on Hemodialysis # Anemia of Chronic Kidney Disease - Nephrology consulted - recommendations appreciated - Continue iron and epoeitin # Depression/Anxiety - Continue sertraline Marv Shelton M.D.
[2022-09-11] MEDS: ONDANSETRON 4 MG/2 ML VIAL IV PRN (10:39)
[2022-09-11 11:12] LABS: MPV 6.4 fL (7.6-11.3); Platelets 466 thou/uL (152-406)
[2022-09-11 11:19] LABS: Protime INR 1.15
[2022-09-11] MEDS: HEPARIN/D5W 25,000 UNIT/500 ML BAG IV PRN (11:44)
[2022-09-11] MEDS ORDERED: HEPARIN 5000 UNIT/ML 1 ML VIAL IV ONE ×2 (12:00→20:51)
--- NOTE | 2022-09-11 12:30 | PN ---
Date of Progress Note: 09/11/2022 Subjective: The patient was admitted with non-ST elevation RI, CHF exacerbation. The patient is sta tus post PTCA yesterday. The patient had chest pain today. Physical Examination: Vital Signs: Blood pressure 132/57, pulse of 85, afebrile. Heart: S1, S2. Systolic murmur. Abdomen: Soft, nontender. Chest: Crackles in the base. Abdomen: Soft, nontender. Extremity: Jhime-xxq-khrt amputation. Neurologic: Alert. No focality. The patient had dialysis yesterday, we managed to remove 3400. Laboratory Data: Hemoglobin 8.5. Sodium 133, potassium 4.3, bicarb 27, BUN 20, creatinine 3.1, calc ium 8.3. Current Medications: The patient on include; 1.Aspirin. 2.Midodrine. 3.Flomax. 4.Epogen. 5.Heparin. 6.Losartan 25 daily. 7.Metoprolol 12.5 b.i.d. 8.Nitroglycerin. 9.Ambien. 10.Pantoprazole. 11.Morphine. Assessment And Plan: 1.End-stage renal disease, over volume, status post dialysis currently with the presence of chest pa in. I am going to resume dialysis tomorrow and continue Saturday, Saturday, Saturday, establishing bett er volume control. We will try to avoid challenging the cardiac status. 2.Hypertension with marginal low blood pressure, midodrine dependent. We will continue current silvino tment. The patient's losartan was started and nitroglycerin drip and we will follow up. 3.Non-ST elevation myocardial infarction, status post percutaneous transluminal coronary angioplasty , active chest pain. We will follow up with Cardiology. 4.Congestive heart failure with exacerbation. We will try to establish better volume control with t he dialysis. 5.Hyponatremia secondary to renal failure. Will be corrected with dialysis. 6.Anemia of chronic kidney disease. Continue EMMY. Time spent examining the patient [id number], reviewing data, lab, and radiology, placing order, dis cussing the case with the patient, discussing the case with the steam table attendant including ICU, nursing st aff and hospitalist more than 35 minutes. BRAD Voice ID: [id number] Report ID: [id number]
[2022-09-11] MEDS: POLYETHYL GLY 3350 17 GM/DOSE PO PRN (13:25)
[2022-09-11] MEDS: NITROGLYCERIN 0.4 MG/TAB SL PRN ×2 (17:00→17:05)
[2022-09-11] MEDS: TAMSULOSIN 0.4 MG SR CAP PO SCH (20:14)
[2022-09-11] MEDS: ATORVASTATIN 40 MG TAB PO SCH (20:15)
[2022-09-12] MEDS: MORPHINE 2 MG/ML SYR IV PRN ×3 (00:25→08:37)
[2022-09-12] MEDS: ACETAMINOPHEN 500 MG TAB PO PRN (02:12)
[2022-09-12 04:35] VITALS: BMI 30.3
[2022-09-12 04:52] LABS: Absolute Lymphocytes (CBC) 0.7 K/uL (0.7-4.9); Hematocrit 23.9 % (39.6-49.0); Lymphocytes % 6.9 % (15.3-44.8); MCV 87.8 fL (80-100); MPV 6.2 fL (7.6-11.3); Platelets 432 thou/uL (152-406); RBC Red Blood Cell Count 2.72 M/uL (4.33-5.43)
[2022-09-12 05:06] LABS: Magnesium 2.2 mg/dL (1.6-2.4); Phosphorus 3.4 mg/dL (2.5-4.9); Potassium 3.9 mEq/L (3.5-5.1)
[2022-09-12] MEDS ORDERED: HEPARIN 5000 UNIT/ML 1 ML VIAL IV ONE (06:35)
[2022-09-12] MEDS: METOPROLOL TAR 25 MG TAB PO SCH ×2 (08:34→20:28)
[2022-09-12] MEDS: ASPIRIN EC 81 MG TAB PO SCH (08:34)
[2022-09-12] MEDS: LOSARTAN POTASSIUM 50 MG TABLET PO SCH (08:36)
[2022-09-12] MEDS: SERTRALINE HCL 50 MG TAB PO SCH (08:38)
[2022-09-12] MEDS: PANTOPRAZOLE 40MG TABLET PO SCH (08:38)
[2022-09-12] MEDS: NITROGLYCERIN 0.1 MG/HR (2.5 MG) PATCH TD SCH (08:39)
[2022-09-12] MEDS: GABAPENTIN 300 MG CAP PO SCH (08:39)
[2022-09-12] MEDS: TICAGRELOR 90 MG TABLET PO SCH ×2 (08:42→20:29)
[2022-09-12] MEDS: NITROGLYCERIN 0.4 MG/TAB SL PRN (09:12)
[2022-09-12] MEDS ORDERED: ACETAMINOPHEN 325 MG TABLET PO PRN (11:24)
--- NOTE | 2022-09-12 12:04 | P.PN ---
Subjective Date of Service: 09/12/22 Chief Complaint: Chest Pain No acute events overnight. He reports intermittent chest pain, which is alleviated by morphine. He describes the pain as pressure, occurring without any obvious inciting or alleviating factors. He denies any shortness of breath, palpitations, nausea, or vomiting. Plan is for nuclear stress test tomorrow. Review of Systems 10-point ROS is otherwise unremarkable Cardiovascular: Chest Pain Physical Examination - Vital Signs Temperature: 98.3 F Blood Pressure: 132/54 Pulse: 71 Respirations: 16 Pulse Ox (%): 96 - Studies Medications List Reviewed: Yes Assessment And Plan - Plan - Physical Exam General: Alert, In no apparent distress, Oriented x3 HEENT: Atraumatic, Mucous membr. moist/pink, Sclerae nonicteric Neck: JVD not distended Respiratory: Clear to auscultation bilaterally, Normal air movement Cardiovascular: No edema, Regular rate/rhythm, Systolic murmur Gastrointestinal: Normal bowel sounds, Soft, Non-distended, No tenderness Musculoskeletal: Other (s/p right AKA) Integumentary: No rashes Neurological: Normal speech, Normal affect # Non-ST Segment Elevation Myocardial Infarction # Coronary Artery Disease s/p recent PCI # Hypertension # Hyperlipidemia - Evaluation thus far: - EKG: LBBB, without STEMI criteria, trend - Serial troponin: 101.0 -> 212.6 -> 211.5 -> 148.6 -> 790.6 - Ordered transthoracic echocardiogram - Chest x-ray = "Mild CHF versus volume overload pattern." - Management plan: - Consult Cardiology and spoke with Dr. Momin - recommendations appreciated - S/P LHC/RHC (09/10) = "PCI for critical ostial left main stenosis, used 4.0 x 8 mm Synergy drug-eluting stent." - Planning for nuclear stress test tomorrow - Continue aspirin, ticagrelor, metoprolol - Resume home losartan - Started atorvastatin # End-Stage Renal Disease on Hemodialysis # Anemia of Chronic Kidney Disease - Nephrology consulted - recommendations appreciated - Continue iron and epoeitin # Depression/Anxiety - Continue sertraline Marv Shelton M.D.
[2022-09-12] MEDS: HEPARIN/D5W 25,000 UNIT/500 ML BAG IV PRN (12:35)
[2022-09-12] MEDS: HYDROCODONE/APAP 5/325 MG TAB PO PRN ×2 (12:35→18:28)
[2022-09-12] MEDS: EPOETIN ALFA 10,000 UNIT/ML VIAL IV SCH (12:42)
--- NOTE | 2022-09-12 13:09 | PN ---
Date of Progress Note: 09/12/2022 Subjective: The patient was admitted to the hospital with non-ST elevation IL, status post PCI done day before yesterday. The patient continued to have chest pain, yesterday started on heparin drip and nitroglycerin. The patient today continued to have chest pain. The patient had no complaint except the chest pain. Physical Examination: Vital Signs: When I saw the patient; blood pressure 132/54, pulse of 71, afebrile. Chest: Clear to auscultation. Heart: S1, S2. Regular. Abdomen: Soft, nontender. Extremity: No edema. Neurologic: Alert. No focality. Laboratory Data: Hemoglobin 8. Sodium 134, potassium 3.9, bicarb 28, BUN 31, creatinine 4, GFR of 14, calcium 7.9, phosphorus 3.4, magnesium 2.2. Troponin 790. Current Medications: The patient on include; 1. Heparin drip. 2. Aspirin. 3. Midodrine p.r.n. 4. Flomax. 5. Heparin. 6. Losartan 25 daily. 7. Atorvastatin. 8. Nitroglycerin patch. 9. Gabapentin. 10. Zoloft. 11. Ambien. 12. Pantoprazole. Assessment And Plan: 1. End-stage renal disease with over volume. The patient is going to be dialyzed today. The patient seen on dialysis. We adjusted the ultrafiltration to 3400 and we will continue to monitor the patient. The patient's blood pressure has been stable. Discontinue sodium module. Continue p.r.n. midodrine. 2. Hypertension, currently blood pressure controlled. We will utilize blood pressure for more ultrafiltration. Continue losartan and nitroglycerin. 3. Over volume. The patient is going to be challenged. 4. Hyponatremia, better. Will be corrected further on the dialysis. 5. Non-ST elevation myocardial infarction as by Cardiology. Time spent examining the patient [id number], reviewing data, lab and radiology, placing orders, discussing the case with the patient, discussing the case with the retail team leader including ICU nursing and hemodialysis nursing more than 35 minutes. BRAD Voice ID: [id number] Report ID: [id number] [facility] CENTEReMlissa
--- NOTE | 2022-09-12 14:30 | ECHO ---
HEIGHT: 5 ft 8 in WEIGHT: 199 lb 9 oz DATE OF STUDY: 09/11/[address]: Marv Shelton MD 2-DIMENSIONAL: YES M.MODE: YES DOPPLER: YES COLOR FLOW: YES TDS: PORTABLE: YES DEFINITY: BUBBLE STUDY: DIAGNOSIS: EVALUATE EJECTION FRACTION PER DR. ZARAGOZA CARDIAC HISTORY: CATHERIZATION: YES SURGERY: NO PROSTHETIC VALVE: NO PACEMAKER: NO MEASUREMENTS (cm) DIASTOLIC (NORMALS) SYSTOLIC (NORMALS) IVSd 1.2 (0.6-1.2) LA Diam 3.6 (1.9-4.0) LVEF 58% LVIDd 5.8 (3.5-5.7) LVIDs 4.0 (2.0-3.5) %FS 31% LVPWd 1.2 (0.6-1.2) Ao Diam 3.1 (2.0-3.7) 2 DIMENSIONAL ASSESSMENT: RIGHT ATRIUM: NORMAL LEFT ATRIUM: NORMAL RIGHT VENTRICLE: NORMAL LEFT VENTRICLE: MILD LEFT VENTRICULAR HYPERTROPHY TRICUSPID VALVE: NORMAL MITRAL VALVE: MILD MITRAL REGURGITATION PULMONIC VALVE: NORMAL AORTIC VALVE: NORMAL PERICARDIAL EFFUSION: NONE AORTIC ROOT: NORMAL LEFT VENTRICULAR WALL MOTION: NORMAL DOPPLER/COLOR FLOW: MILD MITRAL REGURGITATION COMMENTS: 1. NORMAL LEFT VENTRICULAR EJECTION FRACTION 55-60% 2. NORMAL WALL MOTION 3. NORMAL DIASTOLIC FUNCTION 4. CALCIFIED AORTIC VALVE, NO AORTIC STENOSIS 5. MILD MITRAL REGURGITATION 6. MILD CONCENTRIC LEFT VENTRICULAR HYPERTROPHY TECHNOLOGIST: JESIKA VILLAFUERTE
[2022-09-12] MEDS: POLYETHYL GLY 3350 17 GM/DOSE PO PRN (14:46)
--- NOTE | 2022-09-12 17:38 | EKG ---
Test Date: 2022-09-11 Test Time: 08:57:09 [place] Man: XIMENA MEASUREMENT RESULTS: Intervals: Rate: 86 RI: 182 QRSD: 160 QT: 468 QTc: 560 [place]: P: 35 RI: 182 QRS: -75 T: 48 INTERPRETIVE STATEMENTS: Normal sinus rhythm Left axis deviation Right bundle branch block Inferior infarct, age undetermined Anterolateral infarct, age undetermined Abnormal ECG Compared to ECG 09/10/2022 05:24:14 Left-axis deviation now present Right bundle-branch block now present Myocardial infarct finding now present Ventricular-paced complex(es) or rhythm no longer present Electronically Signed On 09-12-22 17:34:31 CDT by Palomo Momin
--- NOTE | 2022-09-12 17:44 | EKG ---
Test Date: 2022-09-10 Test Time: 05:24:14 [place]: MAGED MEASUREMENT RESULTS: Intervals: Rate: 76 FL: 200 QRSD: 126 QT: 454 QTc: 510 [place]: P: 90 FL: 200 QRS: -85 T: 68 INTERPRETIVE STATEMENTS: Electronic ventricular pacemaker Compared to ECG 09/08/2022 15:20:48 Sinus rhythm no longer present Left-axis deviation no longer present Right bundle-branch block no longer present Myocardial infarct finding no longer present Electronically Signed On 09-12-22 17:36:11 CDT by Palomo Momin
[2022-09-12] MEDS: TAMSULOSIN 0.4 MG SR CAP PO SCH (20:28)
[2022-09-12] MEDS: ZOLPIDEM TARTRATE 10 MG TABLET PO PRN (20:29)
[2022-09-12] MEDS: ATORVASTATIN 40 MG TAB PO SCH (20:46)
[2022-09-13] MEDS: HYDROCODONE/APAP 5/325 MG TAB PO PRN ×2 (00:22→08:52)
[2022-09-13] MEDS: ACETAMINOPHEN 500 MG TAB PO PRN (02:31)
[2022-09-13] MEDS: NITROGLYCERIN 0.4 MG/TAB SL PRN ×4 (04:10→08:28)
[2022-09-13 04:31] VITALS: O2SAT 97
[2022-09-13 04:31] LABS: MPV 6.4 fL (7.6-11.3); Platelets 405 thou/uL (152-406)
[2022-09-13] MEDS ORDERED: MORPHINE 2 MG/ML SYR IV ONE (04:37)
[2022-09-13] MEDS ORDERED: REGADENOSON 0.4 MG/5 ML SYR IV ONE (07:36)
[2022-09-13] MEDS: GABAPENTIN 300 MG CAP PO SCH (08:27)
[2022-09-13] MEDS: SERTRALINE HCL 50 MG TAB PO SCH (08:27)
[2022-09-13] MEDS: PANTOPRAZOLE 40MG TABLET PO SCH (08:27)
[2022-09-13] MEDS: ASPIRIN EC 81 MG TAB PO SCH (08:27)
[2022-09-13] MEDS: ONDANSETRON 4 MG/2 ML VIAL IV PRN (08:27)
[2022-09-13] MEDS: LOSARTAN POTASSIUM 50 MG TABLET PO SCH (08:27)
[2022-09-13] MEDS: METOPROLOL TAR 25 MG TAB PO SCH (08:28)
[2022-09-13] MEDS: NITROGLYCERIN 0.1 MG/HR (2.5 MG) PATCH TD SCH (08:28)
[2022-09-13] MEDS: TICAGRELOR 90 MG TABLET PO SCH (08:52)
--- NOTE | 2022-09-13 08:55 | RAD REPORT ---
EXAM DESCRIPTION: NM - Rest Stress Cardiac Imaging - 09/13/2022 8:35 am CLINICAL HISTORY: Chest pain. COMPARISON: None. TECHNIQUE: The patient was administered 10. mCi of Tc 99m Sestamibi prior to resting SPECT imaging o f the heart. The patient was then administered 30. MCi of Tc 99m Sestamibi following exercise or pha rmacologic stress. Multiplanar SPECT images were reviewed. FINDINGS: Large area of diminished radiotracer activity involves the inferior left ventricular myoca rdium on rest and stress images. The left ventricular ejection fraction equals 46% IMPRESSION: Large apparent fixed perfusion defect inferior left ventricular myocardium could represe nt an infarction or attenuation from diaphragm No evidence of stress-induced ischemia
--- NOTE | 2022-09-13 11:01 | TREADPHA ---
DX: CHEST PAIN Date of Study: 09/13/2022 Ht: 5' 8 " Wt: 199 lb 9 oz Consulting Physician: NIK MEDICATIONS: TYLENOL, NORCO, ASPIRIN, LIPITOR, RETACRIT, NEURONTIN, HEPARIN, COZAAR, LOPRESSOR, PROAMATINE, NITROSTAT, ZOFRAN, PROTONIX, GLYCOLAX, ZOLOFT, FLOMAX, BRILINTA, AMBIEN HISTORY: PHYSICIAL EXAMINATION: RESTING B.P.: 143/77 RESTING H.R.: 77 RESTING EKG: PACED RHYTHM PROTOCOL: PHARMACOLOGIC EXERCISE TIME: 3:30 B.P. AT [place]AK STRESS: 133/75 IMPRESSION: LEXISCAN INJECTED. CARDIOLITE INJECTED (SEE NUCLEAR MEDICINE REPORT). NO VENTRICULAR TACHYCARDIA/ SUPRAVENTRICULAR TACHYCARDIA. OCCASIONAL PREMATURE VENTRICULAR COMPLEXES NOTED. COMPLAINTS OF SHORTNESS OF BREATH. NO ELECTROCARDIOGRAM CHANGES WITH LEXISCAN.
[2022-09-13] MEDS: HEPARIN/D5W 25,000 UNIT/500 ML BAG IV PRN (12:48)
[2022-09-13] MEDS: POLYETHYL GLY 3350 17 GM/DOSE PO PRN (12:58)
[2022-09-13] MEDS ORDERED: COENZYME Q10- 200 MG CAP PO SCH ×2 (15:30→21:00)
--- NOTE | 2022-09-13 16:21 | P.DS ---
Admission Date: 09/10/22 Discharge Date: 09/13/22 Disposition: ROUTINE DISCHARGE Discharge Condition: GOOD Reason for Admission: Chest Pain Consultations: 1. Cardiology 2. Nephrology Procedures: - 09/10/2022 - with Dr. Momin 1. Selective coronary angiogram. 2. Left heart catheterization. 3. Right heart catheterization. 4. PCI for critical ostial left main stenosis, used 4.0 x 8 mm Synergy drug-eluting stent. Hospital Course: DIAGNOSES: # Non-ST Segment Elevation Myocardial Infarction # Coronary Artery Disease s/p recent PCI # Hypertension # Hyperlipidemia # End-Stage Renal Disease on Hemodialysis # Anemia of Chronic Kidney Disease # Depression/Anxiety HOSPITAL COURSE: Mr. Amando Grossman is a 76 year old male with a past medical history significant for coronary artery disease s/p PCI, end-stage renal disease on MF iHD, hypertension, hyperlipidemia, depression, and anxiety who was admitted to the [facility] on 09/08/2022 for chest pain. He was admitted to the Medicine service. His EKG revealed a left bundle branch block, without STEMI criteria. His troponin trend was 101.0 -> 212.6 -> 211.5 -> 148.6 -> 790.6. His chest x-ray revealed, "mild CHF versus volume overload pattern." His transthoracic echocardiogram revealed, "1. normal left ventricular ejection fraction 55-60%. 2. normal wall motion. 3. normal diastolic function 4. calcified aortic valve, no aortic stenosis 5. mild mitral regurgitation 6. mild concentric left ventricular hypertrophy." Cardiology was consulted and he was ev aluated by Dr. Momin. On 09/10/2022, he underwent a left and right cardiac catheterization. He was found to have critical stenosis of his ostial left main artery, for which a drug-eluting stent was placed. He tolerated the procedure well, but continued to have pain shortly after the procedure. Dr. Momin recommended a post-procedure nuclear stress test, which revealed, "large apparent fixed perfusion defect inferior left ventricular myocardium could represent an infarction or attenuation from diaphragm. No evidence of stress- induced ischemia." Today, he is chest pain free and Dr. Momin has cleared him for discharge, with outpatient follow-up. From a Nephrology standpoint, I spoke with Dr. Carrington, who has cleared him for discharge to resume hemodialysis tomorrow. On 09/13/2022, he was seen on rounds and deemed medically stable for discharge. He was discharged with instructions to schedule follow-up appointments with his PCP (Dr. Mukherjee), with Cardiology (Dr. Momin), and with his Pumper Hand (Dr. Gaston). He was provided prescriptions for atorvastatin and nitroglycerin. He was given the opportunity to ask questions and reported no further questions. Furthermore, all questions were answered to the best of my ability. A copy of this discharge summary will be sent to the above providers to facilitate continuity of care. Today, I personally spent 25 minutes on his case, of which greater than 50% of the time was spent in patient education, counseling, and coordination of care as described above. - Physical Exam General: Alert, In no apparent distress, Oriented x3 HEENT: Atraumatic, Mucous membr. moist/pink, Sclerae nonicteric Neck: JVD not distended Respiratory: Clear to auscultation bilaterally, Normal air movement Cardiovascular: No edema, Regular rate/rhythm, Systolic murmur Gastrointestinal: Normal bowel sounds, Soft, Non-distended, No tenderness Musculoskeletal: Other (s/p right AKA) Integumentary: No rashes Neurological: Normal speech, Normal affect Vital Signs/Physical Exam: Temp Pulse Resp BP Pulse Ox 97.6 F 73 19 118/56 L 97 09/13/22 12:00 09/13/22 15:00 09/13/22 15:00 09/13/22 15:00 09/13/22 15:00 Laboratory Data at Discharge: WBC 10.60 thou/uL (4.3-10.9) 09/12/22 04:40 Hgb 8.0 g/dL (13.6-17.9) L 09/12/22 04:40 Hct 23.9 % (39.6-49.0) L 09/12/22 04:40 Plt Count 405 thou/uL (152-406) 09/13/22 04:07 PT 12.6 SECONDS (9.5-12.5) H 09/11/22 10:45 INR 1.15 09/11/22 10:45 APTT 52.2 SECONDS (24.3-36.9) H 09/13/22 04:07 Sodium 134 mEq/L (136-145) L 09/12/22 04:40 Potassium 3.9 mEq/L (3.5-5.1) 09/12/22 04:40 BUN 31 mg/dL (7-18) H 09/12/22 04:40 Creatinine 4.08 mg/dL (0.70-1.30) H 09/12/22 04:40 Glucose 102 mg/dL (74-106) 09/12/22 04:40 Phosphorus 3.4 mg/dL (2.5-4.9) 09/12/22 04:40 Magnesium 2.2 mg/dL (1.6-2.4) 09/12/22 04:40 Total Bilirubin 0.4 mg/dL (0.2-1.0) 09/09/22 03:19 AST 18 U/L (15-37) 09/09/22 03:19 ALT 21 U/L (16-61) 09/09/22 03:19 Alkaline Phosphatase 117 U/L (45-117) 09/09/22 03:19 Home Medications: Aspirin [Aspirin EC 81 MG] 81 mg PO DAILY 01/10/17 Fluticasone [Flovent Hfa 110*] 2 sprays IH BID 01/10/17 Pantoprazole [Protonix Tab*] 40 mg PO DAILY 01/10/17 Tamsulosin [Flomax*] 0.4 mg PO SEECOM 01/10/17 Vit A/Vit C/Vit E/Zinc/Copper [Icaps Areds Formula Dr Tablet] 1 each PO DAILY 01/10/17 Zolpidem Tartrate [Ambien*] 10 mg PO BEDTIME PRN PRN 01/10/17 Losartan Potassium 1.5 tab PO DAILY 08/14/22 Metoprolol Tartrate 25 mg PO BID 08/14/22 Gabapentin 300 mg PO DAILY 09/11/22 Sertraline [Zoloft*] 50 mg PO DAILY 09/11/22 Vit B Comp C/Folic Acid/Vit D3 [Dialyvite 800 Plus D Wafer] 1 tab PO SEECOM 09/11/22 Atorvastatin Calcium [Lipitor] 40 mg PO BEDTIME #30 tab 09/13/22 Nitroglycerin [Nitrostat] 0.4 mg SL DAILY PRN #30 tab 09/13/22 Ticagrelor [Brilinta*] 90 mg PO BID 09/13/22 Ubidecarenone [Coenzyme Q10*] 200 mg PO BEDTIME cap 09/13/22 New Medications: Atorvastatin Calcium [Lipitor] 40 mg PO BEDTIME #30 tab Nitroglycerin [Nitrostat] 0.4 mg SL DAILY PRN #30 tab PRN Reason: chest pain Physician Discharge Instructions: 1. Please call and schedule a follow-up appointment with your PCP (Dr. Mukherjee) in 3-5 days 2. Please call and schedule a follow-up appointment with Cardiology (Dr. Momin) in 3-5 days 3. Please call and schedule a follow-up appointment with Nephrology (Dr. Gaston) in 3-5 days - If you have any questions or concerns regarding your hospital stay, please call [phone] - Please return to the Emergency Department if your symptoms worsen - You have been given a prescription for nitroglycerin. Please take your blood pressure prior to taking. Please do not take if the top number is less than 110. Diet: AHA Activity: Fall precautions Followup: Marcie Gaston MD [COURTESY - CAN ADMIT] - Palomo Momin MD [ACTIVE - CAN ADMIT] - Lida Mukherjee MD [Other] Time spent managing pt's care (in minutes): 25
--- NOTE | 2022-09-13 16:26 | PN ---
Date of Progress Note: 09/13/2022 Subjective: The patient was admitted to the hospital with non-ST elevation RI, status post catheterization with PTCA. The patient tolerated very well. The patient continued to have chest pain. Stress test was negative for active ischemia. The patient is feeling better. Physical Examination: Vital Signs: Blood pressure 125/59, pulse of 81, afebrile. Chest: Faint rales on the left base. Heart: S1, S2. Regular. Systolic murmur. Abdomen: Soft, nontender. Extremity: Right above-knee amputation. Trace edema on the left. Neurologic: Alert. No focality. Laboratory Data: Hemoglobin 8. Sodium 134, potassium 3.9, bicarb 28, BUN 31, creatinine 4, calcium 7.9, phosphorus 3.4, magnesium 2.2. Current Medications: The patient on include midodrine t.i.d., aspirin, heparin, Epogen 8000 dialysis day, Brilinta, atorvastatin 40, losartan 25, metoprolol, nitroglycerin, Tylenol, Zoloft, Zofran to be started today. Assessment And Plan: 1. End-stage renal disease, slightly on the wet side. I am going to arrange for the dialysis. Tomorrow, we will challenge the patient again and we will follow up the patient. The patient to avoid low blood pressure. Will be dialyzed on sodium module and low temperature. 2. Hypertension, currently controlled. Used to have low blood pressure. Tolerated the session of dialysis last time without any incident. We will follow up. Continue losartan and continue nitroglycerin. 3. Anemia of chronic kidney disease. Continue EMMY. 4. Secondary hyperparathyroidism, stable. 5. Non-ST elevation myocardial infarction. Continue current treatment. Follow up with Cardiology. start Q 10 to avoid statin-induced myopathy. Time spent examining the patient [id number], reviewing data, lab and radiology, placing order, discussing the case with the steam train driver including hospitalist and nursing staff more than 35 minutes. BRAD Voice ID: [id number] Report ID: [id number] MTDD
[2022-09-13 17:21] VITALS: BP 148/73; TEMP 98.7
--- NOTE | 2022-09-15 13:09 | PN ---
Date of Progress Note: 09/12/2022 Subjective: Seen by bedside. Patient keeps complaining of chest pain. He rates it at 8 to 9/10, bu t he appears to be very comfortable and vital signs are stable. He is status post coronary angiogram with the PCI of the ostial left main. He did very well and his heart is well vascularized. Review of Systems: Positive for chest pain. No shortness of breath. No nausea, vomiting, or diarrhea. No abdominal pa in. No dysuria, polyuria, or urinary urgency. All other systems were reviewed, they were negative. Objective: Vital Signs: Reviewed. Head and Neck: Pupils are equal, reactive to light. Intact eye movements. No JVD. No cervical lym phadenopathy. Neck is supple. Thyroid is not enlarged. Lungs: Clear to auscultation bilaterally. No rhonchi, wheezing, or crackles. No accessory muscle u se. Heart: Regular rate and rhythm. No extra sounds. Abdomen: Soft, nontender. Bowel sounds positive. No organomegaly. No masses or hernia. No rigidi ty or rebound. Extremities: No clubbing or cyanosis. Intact pulses. Skin: No rash. No nodule. Neurologic: Alert, awake, oriented x3. No acute focal deficits appreciated. Investigations: BUN 31, creatinine 4, troponin 790, and his hemoglobin is 8. Assessment And Recommendations: 1.Xfk-LW-gzcisyfpg myocardial infarction due to severe ostial left main stenosis, status post succes sful PCI. Continue dual anti-platelet therapy and high-dose statin. As far as his chest pain, I do not believe this is cardiac. Patient tends to request pain medications in large quantity and frequen tly. So this might be dependence on pain medications. However, I will recommend that to obtain a Le xiscan nuclear stress test tomorrow and if there is no ischemia anymore, then patient needs a chronic pain management. 2.Dyslipidemia. Continue statin. 3.Hypertension. Blood pressure is controlled. Continue current therapy. SR/MODL Voice ID: [id number] Report ID: [id number]
--- NOTE | 2022-09-15 14:15 | PN ---
Date of Progress Note: 09/13/2022 Subjective: Seen by bedside. He continues to complain of the chest pain and requests morphine aroun d the clock. Stress test on him today and there is no evidence of stress-induced ischemia. There is no shortness of breath, nausea, vomiting, diarrhea. No abdominal pain. All other systems reviewed are negative. Physical Examination: Vital signs: Reviewed. Head and Neck: Pupils are equal, reactive to light. Intact eye movements. No JVD. No cervical lym phadenopathy. Neck: Supple. Thyroid is not enlarged. Lungs: Clear to auscultation bilaterally. No rhonchi, wheezing, crackles. No accessory muscle use. Heart: Regular rate and rhythm. No extra sounds. Abdomen: Soft, nontender. Bowel sounds positive. No organomegaly. No masses or hernia. No rigidi ty or rebound. Extremities: No clubbing, cyanosis. Intact pulses. Skin: No rashes. Neurologic: Alert, awake, oriented x3. No acute focal deficits appreciated. Investigations: Labs reviewed. Assessment And Recommendation: 1.Non-ST elevation myocardial infarction due to ostial left main stenosis, status post successful PC I. Ejection fraction on echo was normal and stress test was negative. From Cardiology standpoint, t he patient can be released. Follow up as an outpatient. 2.Hypertension. Blood pressure is controlled. 3.Dyslipidemia. Continue high-dose statin. The patient does complain of significant pain and requests pain medications around the clock. He diego ht need chronic pain management in the future. I do not believe his pain is cardiac. Given that the stress test was negative and he had a full revascularization few days ago. Cardiology will sign off and will follow this patient as an outpatient. /SYLVIAL Voice ID: [id number] Report ID: [id number]
== END 2022-09-13 18:45 | disposition home or self-care (01) | DRG 246 ==
LOC: ER 06:39 → 2ND-WC 12:32 → 2ND 12:50 → OBSVTOIN 09-10 11:17 → 3RD-ICU 09-10 19:25 → 4TH 09-13 18:35
PROVIDERS: ADMIT Hospitalist; ATTEND Internal Medicine
PROC: 027034Z Dilation of Coronary Artery, One Artery with Drug-eluting Intraluminal Device, Percutaneous Approach (ICD-10-PCS; principal; 2022-09-10)
PROC: 4A023N8 Measurement of Cardiac Sampling and Pressure, Bilateral, Percutaneous Approach (ICD-10-PCS; 2022-09-10)
PROC: B2111ZZ Fluoroscopy of Multiple Coronary Arteries using Low Osmolar Contrast (ICD-10-PCS; 2022-09-10)
DX: I21.4 Non-ST elevation (NSTEMI) myocardial infarction (principal); N18.6 End stage renal disease; E87.1 Hypo-osmolality and hyponatremia; I13.2 Hypertensive heart and chronic kidney disease with heart failure and with stage 5 chronic kidney disease, or end stage renal disease; I50.9 Heart failure, unspecified; D63.8 Anemia in other chronic diseases classified elsewhere; F32.A Depression, unspecified; I35.0 Nonrheumatic aortic (valve) stenosis; D63.1 Anemia in chronic kidney disease; K21.9 Gastro-esophageal reflux disease without esophagitis; F41.9 Anxiety disorder, unspecified; E78.00 Pure hypercholesterolemia, unspecified; I25.119 Atherosclerotic heart disease of native coronary artery with unspecified angina pectoris; Z99.2 Dependence on renal dialysis; Z88.0 Allergy status to penicillin; Z95.5 Presence of coronary angioplasty implant and graft; Z88.8 Allergy status to other drugs, medicaments and biological substances; Z79.82 Long term (current) use of aspirin; Z79.899 Other long term (current) drug therapy; Z91.013 Allergy to seafood; Z91.048 Other nonmedicinal substance allergy status; Z89.611 Acquired absence of right leg above knee
CPT/HCPCS: 36415; 71045; 76937; 78452; 80048; 80053; 80076; 82607; 83540; 83735; 83880; 84100; 84484; 85025; 85044; 85049; 85347; 85610; 85730; 86706; 87340; 90935; 93005; 93017; 93306; 93460; 96374; 96375; 97161; 97530; 99285; A9500; C1725; C1893; C9600; J0461; J1200; J1644; J2001; J2250; J2270; J2405; J2785; J2916; J2930; J3010; J7040; Q5106

== ENCOUNTER → 2023-03-12 | Emergency (ER) | payer OTHER, BC ==
[~2023-03-12] MED LIST: MAGNES/ALUMIN/SIMET 30ML UCUP ONE
--- NOTE | 2023-03-12 08:22 | RAD REPORT ---
EXAM DESCRIPTION: DIANAChest Single View03/12/2023 7:58 am CLINICAL HISTORY: DYSPNEA COMPARISON: Chest Single View dated 09/08/2022; Chest Single View dated 08/13/2022; Chest Single View d ated 02/10/2022; Chest Single View dated 01/22/2022 TECHNIQUE: Portable AP view of the chest. FINDINGS: Stable central interstitial prominence. Patchy right basilar airspace opacities, stable as well. No pneumothorax or effusion. Stable cardiomegaly. Mediastinal contours are unremarkable. Rig ht chest wall pacer in place. IMPRESSION: Stable findings suggestive of CHF. Superimposed pneumonia would be difficult to exclude.
[2023-03-12 08:24] LABS: Absolute Lymphocytes (CBC) 0.3 K/uL (0.7-4.9); Hematocrit 32.8 % (39.6-49.0); Lymphocytes % 3.5 % (15.3-44.8); MCV 88.7 fL (80-100); MPV 6.5 fL (7.6-11.3); Platelets 415 thou/uL (152-406); RBC Red Blood Cell Count 3.69 M/uL (4.33-5.43)
[2023-03-12 08:47] LABS: Albumin 3.2 g/dL (3.4-5.0); Bilirubin Total 0.3 mg/dL (0.2-1.0); Magnesium 2.5 mg/dL (1.6-2.4); Potassium 3.8 mEq/L (3.5-5.1); Protein, Total 8.2 g/dL (6.4-8.2); Troponin High Sensitivity 21.5 pg/mL (<58.9)
--- NOTE | 2023-03-12 09:14 | EDPHYS ---
Physician Documentation [facility] Name: Amando Grossman Age: 77 yrs Sex: Male : 1945 Arrival Date: 03/12/2023 Time: 06:49 Bed 6 Private MD: ED Physician Travis Olivia HPI: 03/12 10:36 This 77 yrs old Male presents to ER via Wheelchair with complaints of Xray/EKG-Sent By rt 10:36 Patient presents to the ED with dyspnea that occurred during dialysis yesterday. rt Patient had some mild nausea at that time. Patient states that the symptoms have resolved. States that he was told yesterday come to the ED, stated that he did not wish to do so, is following up today for that. Patient states that he does have a chair for a follow 1 dialysis today. He denies other acute complaints at this time, symptoms are mild in severity, no other aggravating or alleviating factors.. Historical: - Allergies: 07:15 Iodine; topical is ok; kb3 07:15 PENICILLINS; kb3 07:15 Shellfish Containing Products; kb3 07:15 STATINS HMG COA REDUCTASE INHIBITORS; kb3 - PMHx: 07:15 Anxiety; Depression; Dialysis <M and F; GERD; High Cholesterol; Hypertension; mascular kb3 degeneration; Urinary Urgency; - Immunization history:: Adult Immunizations up to date, Client reports receiving the 2nd dose of the Covid vaccine, Last tetanus immunization: up to date. - Social history:: Smoking status: Patient denies any tobacco usage or history of. - Family history:: not pertinent. ROS: 10:36 Constitutional: Negative for fever, chills, and weight loss, Cardiovascular: Negative rt for chest pain, palpitations, and edema, MS/Extremity: Negative for injury and deformity, Skin: Negative for injury, rash, and discoloration, Neuro: Negative for headache, weakness, numbness, tingling, and seizure, Psych: Negative for depression, anxiety, suicide ideation, homicidal ideation, and hallucinations, 10:36 Respiratory: Positive for shortness of breath, Negative for cough, 10:36 Abdomen/GI: Positive for nausea, Negative for abdominal pain, vomiting, Exam: 10:36 Constitutional: This is a well developed, well nourished patient who is awake, alert, rt and in no acute distress. Head/Face: Normocephalic, atraumatic. Chest/axilla: Normal chest wall appearance and motion. Nontender with no deformity. No lesions are appreciated. Cardiovascular: Regular rate and rhythm with a normal S1 and S2. No gallops, murmurs, or rubs. Normal PMI, no JVD. No pulse deficits. Respiratory: Lungs have equal breath sounds bilaterally, clear to auscultation and percussion. No rales, rhonchi or wheezes noted. No increased work of breathing, no retractions or nasal flaring. Abdomen/GI: Soft, non-tender, with normal bowel sounds. No distension or tympany. No guarding or rebound. No evidence of tenderness throughout. Skin: Warm, dry with normal turgor. Normal color with no rashes, no lesions, and no evidence of cellulitis. Neuro: Awake and alert, GCS 15, oriented to person, place, time, and situation. Cranial nerves II-XII grossly intact. Motor strength 5/5 in all extremities. Sensory grossly intact. Cerebellar exam normal. Normal gait. Psych: Awake, alert, with orientation to person, place and time. Behavior, mood, and affect are within normal limits. 10:36 Musculoskeletal/extremity: Right [id number]-[id number] amputation, no edema on the left lower extremity. 10:36 ECG was reviewed by the Attending Physician. rt Vital Signs: 07:12 BP 118 / 73; Pulse 72; Resp 18; Temp 98.4; Pulse Ox 97% ; Weight 84.37 kg; Height 5 ft. kb3 8 in. ; Pain 1/10; 09:22 BP 118 / 83; Pulse 69; Resp 16; Temp 97.5; Pulse Ox 95% on R/A; Pain 0/10; em1 07:12 Body Mass Index 28.28 (84.37 kg, 172.72 cm) kb3 07:12 Pain Scale: Adult kb3 09:22 Pain Scale: Adult em1 MDM: 07:19 Patient medically screened. rt 10:36 Differential Diagnosis CHF, electrolyte disturbance, end-stage renal disease. Data rt reviewed: vital signs, nurses notes. Consideration of Admission/Observation Escalation of care including admission/observation considered. No significant electrolyte changes, patient with mild pulmonary edema, already has scheduled follow on dialysis, is not hypoxic, does not require inpatient hospitalization for dialysis at this time.. Independent interpretation of the following test(s) in the Emergency Department X-Ray: My interpretation is No consolidations and interpretation of x-ray images. Care significantly affected by the following chronic conditions: Chronic Kidney Disease. Counseling: I had a detailed discussion with the patient and/or guardian regarding the historical points, exam findings, and any diagnostic results supporting the discharge/admit diagnosis, lab results, radiology results, the need for outpatient follow up, to return to the emergency department if symptoms worsen or persist or if there are any questions or concerns that arise at home. 03/12 07:19 Order name: Basic Metabolic Panel rt 03/12 07:19 Order name: CBC with Diff; Complete Time: 08:26 rt 03/12 07:19 Order name: LFT's rt 03/12 07:19 Order name: Magnesium rt 03/12 07:19 Order name: Troponin HS rt 03/12 07:19 Order name: XRAY Chest (1 view); Complete Time: 08:26 rt 03/12 07:19 Order name: EKG; Complete Time: 07:20 rt 03/12 07:19 Order name: Cardiac monitoring; Complete Time: 07:30 rt 03/12 07:19 Order name: EKG - Nurse/Tech; Complete Time: 07:46 rt 03/12 07:19 Order name: IV Saline Lock; Complete Time: 08:11 rt 03/12 07:19 Order name: Labs collected and sent; Complete Time: 08:11 rt 03/12 07:19 Order name: O2 Per Protocol; Complete Time: 07:30 rt 03/12 07:19 Order name: O2 Sat Monitoring; Complete Time: 07:30 rt EC:36 Rate is 76 beats/min. Rhythm is regular, Normal Sinus Rhythm with Left bundle branch rt block, Left bundle branch block is old, unchanged compared to prior EKG. SC interval is normal. QT interval is normal. No ST changes noted. Administered Medications: 07:33 Drug: Alum-Mag Hydroxide-Simeth PO Suspension (200 mg-200 mg-20 mg/5 mL) 30 ml PO once ld1 Route: PO; Disposition Summary: 03/12/23 09:13 Discharge Ordered Notes: Location: Home rt Problem: new rt Symptoms: are resolved rt Condition: Stable rt Diagnosis - Dyspnea rt Followup: rt - With: Private Physician - When: Today - Reason: Discharge Instructions: - Discharge Summary Sheet rt - Shortness of Breath, Adult rt Forms: - Medication Reconciliation Form rt - Thank You Letter rt - Antibiotic Education rt - Prescription Opioid Use rt - Patient Portal Instructions rt - Leadership Thank You Letter rt Signatures: Dispatcher [employer] Mayra Amador RN RN ld1 Christiana Lozano RN RN kb3 Travis Olivia MD MD rt Corrections: (The following items were deleted from the chart) 07:16 07:15 PSHx: Artie MORGAN; kb3 kb3
--- NOTE | 2023-03-12 09:14 | ER ---
Nurse's Notes [facility] Name: Amando Grossman Age: 77 yrs Sex: Male : 1945 Arrival Date: 03/12/2023 Time: 06:49 Bed 6 Private MD: Diagnosis: Dyspnea Presentation: 03/12 07:12 Chief complaint: Patient states: Pt reports he felt SOB at dialysis last night. States kb3 he felt better after dialysis but wanted to get checked out today. Coronavirus screen: Vaccine status: Patient reports receiving the 2nd dose of the covid vaccine. Client denies travel out of the [place] in the last 14 days. Ebola Screen: Patient negative for fever greater than or equal to 101.5 degrees Fahrenheit, and additional compatible Ebola Virus Disease symptoms Patient denies exposure to infectious person. Patient denies travel to an Ebola-affected area in the 21 days before illness onset. Initial Sepsis Screen: Does the patient meet any 2 criteria? No. Patient's initial sepsis screen is negative. Does the patient have a suspected source of infection? No. Patient's initial sepsis screen is negative. Risk Assessment: Do you want to hurt yourself or someone else? Patient reports no desire to harm self or others. Onset of symptoms was March 11, 2023. 07:12 Method Of Arrival: Wheelchair kb3 07:12 Acuity: KELLY 3 kb3 Triage Assessment: 07:15 General: Appears in no apparent distress. Behavior is calm, cooperative. Pain: kb3 Complains of pain in abdomen Pain does not radiate. Pain currently is 1 out of 10 on a pain scale. Historical: - Allergies: 07:15 Iodine; topical is ok; kb3 07:15 PENICILLINS; kb3 07:15 Shellfish Containing Products; kb3 07:15 STATINS HMG COA REDUCTASE INHIBITORS; kb3 - PMHx: 07:15 Anxiety; Depression; Dialysis <M and F; GERD; High Cholesterol; Hypertension; mascular kb3 degeneration; Urinary Urgency; - Immunization history:: Adult Immunizations up to date, Client reports receiving the 2nd dose of the Covid vaccine, Last tetanus immunization: up to date. - Social history:: Smoking status: Patient denies any tobacco usage or history of. - Family history:: not pertinent. Screenin:45 [facility] ED Fall Risk Assessment (Adult) History of falling in the last 3 months, ko1 including since admission No falls in past 3 months (0 pts) Confusion or Disorientation No (0 pts) Intoxicated or Sedated No (0 pts) Impaired Gait Yes (1 pt) Mobility Assist Device Used Yes (1 pt) Altered Elimination No (0 pt) Score/Fall Risk Level 0 - 2 = Low Risk Oriented to surroundings, Maintained a safe environment, Educated pt \T\ family on fall prevention, incl call for assistance when getting out of bed, Assessed \T\ reinforced patient's understanding of fall precautions, Provided non-skid footwear, Hourly rounding (assess needs \T\ fall precautionary measures) done, Used ambulatory aids as needed (educated on \T\ assisted with), Used gait belt as appropriate. Abuse screen: Denies threats or abuse. Denies injuries from another. Nutritional screening: No deficits noted. Tuberculosis screening: No symptoms or risk factors identified. Assessment: 07:45 General: Appears in no apparent distress. comfortable. Pain: Denies pain. Neuro: No ko1 deficits noted. Cardiovascular: No deficits noted. Respiratory: No deficits noted. GI: No deficits noted. : Reports dialysis patient. EENT: No deficits noted. Derm: No deficits noted. Musculoskeletal: No deficits noted. Vital Signs: 07:12 BP 118 / 73; Pulse 72; Resp 18; Temp 98.4; Pulse Ox 97% ; Weight 84.37 kg; Height 5 ft. kb3 8 in. ; Pain 1/10; 09:22 BP 118 / 83; Pulse 69; Resp 16; Temp 97.5; Pulse Ox 95% on R/A; Pain 0/10; em1 07:12 Body Mass Index 28.28 (84.37 kg, 172.72 cm) kb3 07:12 Pain Scale: Adult kb3 09:22 Pain Scale: Adult em1 ED Course: 06:54 Patient arrived in ED. mg5 07:03 Travis Olivia MD is Attending Physician. rt 07:14 Triage completed. kb3 07:15 Arm band placed on right wrist. kb3 07:29 Teresa Alanis, ADRIEN is Primary Nurse. ko1 07:45 Patient has correct armband on for positive identification. Fall risk band placed. Bed ko1 in low position. Call light in reach. Pulse ox on. NIBP on. Door closed. Noise minimized. Lights dimmed. Warm blanket given. Pillow given. 08:00 XRAY Chest (1 view) In Process Unspecified. EDMS 08:11 Initial lab(s) drawn, by me, sent to lab. Inserted saline lock: 22 gauge in right em1 wrist, using aseptic technique. Blood collected. 09:20 Provided Education on: na. ko1 09:20 No provider procedures requiring assistance completed. IV discontinued, intact, ko1 bleeding controlled, No redness/swelling at site. Pressure dressing applied. Administered Medications: 07:33 Drug: Alum-Mag Hydroxide-Simeth PO Suspension (200 mg-200 mg-20 mg/5 mL) 30 ml PO once ld1 Route: PO; Medication: 09:20 VIS not applicable for this client. ko1 Outcome: 09:13 Discharge ordered by . rt 09:20 Discharged to home via wheelchair, ko1 09:20 Condition: stable 09:20 Discharge instructions given to patient, Instructed on discharge instructions, follow up and referral plans. Demonstrated understanding of instructions, follow-up care, 09:23 Patient left the ED. ko1 Signatures: Dispatcher [employer] Nir Cyr em1 Mayra Michael RN RN ld1 Christiana Lozano RN RN kb3 Teresa Alanis RN RN ko1 Travis Olivia MD MD rt Glendy Dickson mg5 Corrections: (The following items were deleted from the chart) 07:16 07:15 PSHx: R AKA; kb3 kb3
[2023-03-12 09:38] LABS: Bilirubin Direct 0.1 mg/dL (0-0.2); Bilirubin Indirect, Calculated 0.2 mg/dL (0.2-0.8)
[2023-03-12 15:43] VITALS: BP 118/83; TEMP 97.5; O2SAT 95
--- NOTE | 2023-03-14 13:33 | EKG ---
Test Date: 2023-03-12 Test Time: 07:50:28 Residential Sales Rep: Kathryn MORGAN MEASUREMENT RESULTS: Intervals: Rate: 76 IL: 196 QRSD: 164 QT: 488 QTc: 549 [place]: P: 31 IL: 196 QRS: -80 T: 101 INTERPRETIVE STATEMENTS: Normal sinus rhythm Left axis deviation Left ventricular hypertrophy with QRS widening and repolarization abnormality Lateral infarct, age undetermined Inferior infarct, age undetermined Abnormal ECG Compared to ECG 09/11/2022 08:57:09 Left ventricular hypertrophy now present Early repolarization now present Right bundle-branch block no longer present Myocardial infarct finding still present Electronically Signed On 03-14-23 13:24:35 PURCHASING DIRECTOR by Palomo Momin
== END ==
LOC: ER 06:49
DX: R06.00 Dyspnea, unspecified (principal); R11.0 Nausea; Z99.2 Dependence on renal dialysis; Z88.0 Allergy status to penicillin; Z88.8 Allergy status to other drugs, medicaments and biological substances; Z91.013 Allergy to seafood; Z91.048 Other nonmedicinal substance allergy status
CPT/HCPCS: 36415; 71045; 80048; 80076; 83735; 84484; 85025; 93005

== ENCOUNTER 2023-04-29 18:44 | Observation (INO) | payer OTHER, BC ==
[2023-04-29 19:23] LABS: Absolute Basophils 0.1 K/uL (0-0.5); Absolute Eosinophils 0.4 K/uL (0-0.5); Absolute Lymphocytes (CBC) 0.4 K/uL (0.7-4.9); Absolute Monocytes 0.7 K/uL (0.1-1.3); Absolute Neutrophil 8.3 K/uL (1.8-8.0); Basophils % 0.7 % (0-1.3); Eosinophils % 3.7 % (0-4.4); Hemoglobin 11.9 g/dL (13.6-17.9); Lymphocytes % 4.3 % (15.3-44.8); MCH 28.3 pg (27.0-35.0); MCV 85.8 fL (80-100); MPV 6.5 fL (7.6-11.3); Monocytes % 7.4 % (3.3-12.3); Neutrophils % 83.9 % (41.7-73.7); Platelets 354 thou/uL (152-406); RBC Red Blood Cell Count 4.19 M/uL (4.33-5.43); Red Cell Distribution Width 18.9 % (12.1-15.2)
[2023-04-29] MEDS ORDERED: ALBUTEROL 2.5 MG/3 ML NEB SOL ONE (19:23)
[2023-04-29] MEDS ORDERED: IPRATROPIUM BROM 0.5MG/2.5ML ONE (19:23)
[2023-04-29] MEDS ORDERED: METHYLPREDNISOLONE 125 MG INJ ONE (19:24)
--- NOTE | 2023-04-29 19:43 | RAD REPORT ---
[facility]19 [facility] CLINICAL HISTORY: COUGH COMPARISON: Chest Single View dated 03/12/2023; Chest Single View dated 09/08/2022; Chest Single View dated 08/13/2022; Chest Single View dated 02/10/2022 TECHNIQUE: Portable AP view of the chest. FINDINGS: Patchy bibasilar airspace opacities, with central interstitial prominence, worsened since the prior exam. . No pneumothorax or effusion. Stable cardiomegaly. Mediastinal contours are unchang ed. Right chest wall pacer/AICD in place. IMPRESSION: Findings suggestive of central congestion/CHF. Background scarring/ atelectasis of the r ight lower lobe.
[2023-04-29 19:54] LABS: Anion Gap 7.4 mEq/L (5.0-15.0); Potassium 3.4 mEq/L (3.5-5.1); Troponin High Sensitivity 18.7 pg/mL (<58.9)
--- NOTE | 2023-04-29 20:03 | EDPHYS ---
Physician Documentation [facility] Name: Amando Grossman Age: 77 yrs Sex: Male : 1945 Arrival Date: 04/29/2023 Time: 18:44 Bed 17 Private MD: ED Physician Jonathan Schmitz HPI: 04/28 18:50 This 77 yrs old Male presents to ER via Unassigned with complaints of sob. ec2 18:50 Patient arrives today for evaluation of shortness of breath. Patient with history of ec2 asthma, ESRD, has been having worsening breathing issues today. Patient was undergoing his dialysis run, has not missed dialysis, undergoes dialysis twice a week. Patient reports no chest pain. EMS reports that they given the patient albuterol and Atrovent prior to arrival with improvement in symptoms. Never hypoxic with EMS.. Historical: - Allergies: 19:18 Iodine; topical is ok; cp4 19:18 PENICILLINS; cp4 19:18 Shellfish Containing Products; cp4 19:18 STATINS HMG COA REDUCTASE INHIBITORS; cp4 - PMHx: 19:18 Anxiety; Depression; Dialysis <M and F; GERD; High Cholesterol; Hypertension; mascular cp4 degeneration; Urinary Urgency; - Immunization history:: Adult Immunizations up to date. - Social history:: Smoking status: Patient denies any tobacco usage or history of. ROS: 18:50 Constitutional: as per hpi ec2 Exam: 18:50 Constitutional: GEN: NAD Head: atraumatic Eyes: EOMI Ears: External ears are ec2 normal. CV: regular rate LUNGS: no respiratory distress, scattered wheezes noted throughout all lung patricia. ABD: non-distended SKIN: no evidence of rashes MSK: no evidence of trauma NEURO: moves all extremities equally Vital Signs: 18:50 BP 139 / 65; Pulse 81; Resp 20; Temp 98; Pulse Ox 99% 2 lpm ; Pain 0/10; cp4 19:30 BP 130 / 58; Pulse 73; Resp 20; Pulse Ox 100% 2 lpm ; cp4 20:01 BP 130 / 58; Pulse 80; Pulse Ox 100% ; ec2 20:30 BP 119 / 52; Pulse 76; Resp 20; Pulse Ox 95% 2 lpm ; cp4 21:30 BP 112 / 61; Pulse 75; Resp 20; Pulse Ox 97% 2 lpm ; cp4 18:50 Pain Scale: Adult cp4 MDM: 18:49 Patient medically screened. ec2 18:50 ED course: Patient arrives today for shortness of breath. Examination remarkable for ec2 lung findings as above. Will obtain lab work, EKG, chest x-ray. Will give the patient DuoNeb as well as steroids. Evaluate for asthma exacerbation, ACS, doubt PE or dissection.. 19:45 ED course: Chest x-rays consistent with vascular congestion and volume overload.. ec2 20:01 Data reviewed: vital signs, nurses notes. ED course: Metabolic profile shows ec2 hypokalemia with potassium of 3.4, GFR of 26, creatinine 2.51, BNP markedly elevated at 53,000. Troponin within normal ranges. I suspect component of volume overload causing patient's symptoms. I will admit the patient for shortness of breath and volume overload. Discussed case with hospitalist, pending admission.. 04/28 18:49 Order name: Basic Metabolic Panel; Complete Time: 20:00 ec2 04/28 18:49 Order name: CBC with Diff; Complete Time: 19:36 ec2 04/28 18:49 Order name: NT PRO-BNP; Complete Time: 20:00 ec2 18 18:49 Order name: Troponin HS; Complete Time: 20:00 ec2 04/28 20:23 Order name: Basic Metabolic Panel EDMS 04/28 20:23 Order name: Basic Metabolic Panel EDMS 04/28 20:23 Order name: Basic Metabolic Panel EDMS 04/28 20:23 Order name: CBC with Automated Diff EDMS 04/28 20:23 Order name: CBC with Automated Diff EDMS 04/28 20:23 Order name: CBC with Automated Diff EDMS 04/28 18:49 Order name: XRAY Chest (1 view); Complete Time: 19:44 ec2 04/28 18:49 Order name: EKG; Complete Time: 18:50 ec2 04/28 18:49 Order name: Cardiac monitoring; Complete Time: 19:14 ec2 18 18:49 Order name: EKG - Nurse/Tech; Complete Time: 19:14 ec2 18 18:49 Order name: IV Saline Lock; Complete Time: 19:15 ec2 18 18:49 Order name: Labs collected and sent; Complete Time: 19:15 ec2 04/28 18:49 Order name: O2 Per Protocol; Complete Time: 19:15 ec2 04/28 18:49 Order name: O2 Sat Monitoring; Complete Time: 19:15 ec2 Administered Medications: 19:28 Drug: MethylPrednisoLONE IVP 125 mg IVP once Route: IVP; Site: right antecubital; cp4 21:49 Follow up: Response: No adverse reaction cp4 19:29 Drug: DuoNeb Nebulize (3:1) (2.5 mg - 0.5 mg) 3 ml Nebulizer once Route: Nebulizer; cp4 21:49 Follow up: Response: No adverse reaction cp4 Disposition Summary: 04/29/23 20:03 Hospitalization Ordered Notes: Hospitalization Status: Inpatient Admission ec2 Provider: Kenneth Guillory ec2 Condition: Stable ec2 Problem: new ec2 Symptoms: have improved ec2 Bed/Room Type: Standard ec2 Location: Telemetry/MedSurg (Inpatient)(04/29/23 21:37) [facility] Room Assignment: [facility](04/29/23 21:37) [facility] Diagnosis - CHF Exacerbation ec2 Forms: - Medication Reconciliation Form ec2 - SBAR form ec2 - Leadership Thank You Letter ec2 Signatures: Dispatcher [employer] Danni Cyr RN RN 10 Jonathan Schmitz MD MD 2 Katie Smith 4 Jany Barba [facility] Corrections: (The following items were deleted from the chart) 20:52 20:03 ec2 [facility] 20:58 20:03 Telemetry/MedSurg (Inpatient) ec2 10 20:58 20:52 429 km cm10 21:37 20:58 [facility] ER HOLD cm10 kmf 21:37 20:58 cm10 f
--- NOTE | 2023-04-29 20:03 | ER ---
Nurse's Notes [facility] Name: Amando Grossman Age: 77 yrs Sex: Male : 1945 Arrival Date: 04/29/2023 Time: 18:44 Bed 17 Private MD: Diagnosis: CHF Exacerbation Presentation: 04/28 18:50 Chief complaint: EMS states: shortness of breath that started while at dialysis. cp4 18:50 Coronavirus screen: Client denies travel out of the [place] in the last 14 days. At this cp4 time, the client does not indicate any symptoms associated with coronavirus-19. Ebola Screen: Patient negative for fever greater than or equal to 101.5 degrees Fahrenheit, and additional compatible Ebola Virus Disease symptoms Patient denies exposure to infectious person. Patient denies travel to an Ebola-affected area in the 21 days before illness onset. No symptoms or risks identified at this time. Initial Sepsis Screen: Does the patient meet any 2 criteria? No. Patient's initial sepsis screen is negative. Does the patient have a suspected source of infection? No. Patient's initial sepsis screen is negative. Risk Assessment: Do you want to hurt yourself or someone else? Patient reports no desire to harm self or others. Onset of symptoms was April 29, 2023. 18:50 Method Of Arrival: EMS: [facility] cp4 18:50 Acuity: KELLY 3 cp4 Triage Assessment: 19:18 General: Appears distressed, Behavior is calm, cooperative, appropriate for age. Pain: cp4 Denies pain. Respiratory: Reports shortness of breath labored breathing Breath sounds with wheezes bilaterally. Onset: The symptoms/episode began/occurred suddenly, the patient has moderate shortness of breath. Historical: - Allergies: 19:18 Iodine; topical is ok; cp4 19:18 PENICILLINS; cp4 19:18 Shellfish Containing Products; cp4 19:18 STATINS HMG COA REDUCTASE INHIBITORS; cp4 - PMHx: 19:18 Anxiety; Depression; Dialysis <M and F; GERD; High Cholesterol; Hypertension; mascular cp4 degeneration; Urinary Urgency; - Immunization history:: Adult Immunizations up to date. - Social history:: Smoking status: Patient denies any tobacco usage or history of. Screenin:19 [facility] ED Fall Risk Assessment (Adult) History of falling in the last 3 months, cp4 including since admission No falls in past 3 months (0 pts) Confusion or Disorientation No (0 pts) Intoxicated or Sedated No (0 pts) Impaired Gait No (0 pts) Mobility Assist Device Used No (0 pt) Altered Elimination No (0 pt) Score/Fall Risk Level 0 - 2 = Low Risk Oriented to surroundings, Maintained a safe environment, Assessed \T\ reinforced patient's understanding of fall precautions, Hourly rounding (assess needs \T\ fall precautionary measures) done. Abuse screen: Denies threats or abuse. Nutritional screening: No deficits noted. Tuberculosis screening: No symptoms or risk factors identified. Assessment: 19:19 Reassessment: No changes from previously documented assessment. Cardiovascular: Rhythm cp4 is Respiratory: Airway is patent Respiratory effort is labored, using tripod position. 22:15 Reassessment: ASSUMED CARE OF PT. PT SITTING IN BED. NO DISTRESS NOTED. VS STABLE. PT jj7 INFORMED THEY WILL BE MOVED TO THE UNIT IN 15 MINUTES. Vital Signs: 18:50 BP 139 / 65; Pulse 81; Resp 20; Temp 98; Pulse Ox 99% 2 lpm ; Pain 0/10; cp4 19:30 BP 130 / 58; Pulse 73; Resp 20; Pulse Ox 100% 2 lpm ; cp4 20:01 BP 130 / 58; Pulse 80; Pulse Ox 100% ; ec2 20:30 BP 119 / 52; Pulse 76; Resp 20; Pulse Ox 95% 2 lpm ; cp4 21:30 BP 112 / 61; Pulse 75; Resp 20; Pulse Ox 97% 2 lpm ; cp4 18:50 Pain Scale: Adult cp4 ED Course: 18:49 Patient arrived in ED. ec2 18:49 Jonathan Schmitz MD is Attending Physician. ec2 18:53 Katie Smith is Primary Nurse. cp4 19:15 Basic Metabolic Panel Sent. cp4 19:15 CBC with Diff Sent. cp4 19:15 NT PRO-BNP Sent. cp4 19:15 Troponin HS Sent. cp4 19:18 Triage completed. cp4 19:18 Arm band placed on right wrist. Patient placed in an exam room, on a stretcher. cp4 19:19 No provider procedures requiring assistance completed. Inserted saline lock: 24 gauge cp4 in right antecubital area, using aseptic technique. Blood collected. 19:19 Bed in low position. Call light in reach. Side rails up X 1. cp4 19:21 XRAY Chest (1 view) In Process Unspecified. EDMS 20:03 Kenneth Guillory MD is Hospitalizing Provider. ec2 22:15 Patient admitted, IV remains in place. jj7 22:15 Provided Education on: USE OF CALL SALEEM. jj7 22:15 Placed in gown. jj7 Administered Medications: 19:28 Drug: MethylPrednisoLONE IVP 125 mg IVP once Route: IVP; Site: right antecubital; cp4 21:49 Follow up: Response: No adverse reaction cp4 19:29 Drug: DuoNeb Nebulize (3:1) (2.5 mg - 0.5 mg) 3 ml Nebulizer once Route: Nebulizer; cp4 21:49 Follow up: Response: No adverse reaction cp4 Medication: 19:19 VIS not applicable for this client. cp4 Outcome: 20:03 Decision to Hospitalize by Provider. ec2 22:34 Admitted to Med/surg accompanied by nurse, via stretcher, room 405, Report called to jjKeren REPORT FAXED BY SADE JURADO 22:34 Condition: good 22:39 Patient left the ED. jj7 Signatures: Dispatcher [employer] Dominique Sky RN RN jj7 Jonathan Schmitz MD MD ec2 Katie Smith cp4 Corrections: (The following items were deleted from the chart) 23:59 22:42 Patient left the ED. jj7 jj7 23:59 22:34 Admitted to Med/surg accompanied by nurse, via stretcher, room 417, Report called jj7 to REPORT FAXED BY SADE galvan
--- NOTE | 2023-04-29 20:16 | P.HP ---
Certification for Inpatient Patient admitted to: Observation With expected LOS: <2 Midnights Practitioner: I am a practitioner with admitting privileges, knowledge of patient current condition, hospital course, and medical plan of care. Services: Services provided to patient in accordance with Admission requirements found in Title 42 Section 412.3 of the Code of Federal Regulations Patient History Date of Service: 04/30/23 Reason for admission: Worsening shortness of breath. History of Present Illness: Some 70-year-old male patient with medical history significant for ESRD on dialysis on Saturday, Saturday, Saturday schedule was evaluated ED for episode of worsening shortness of breath. He reported that he had dialysis earlier today but began to have more shortness of breath. No issues with chest pain, fever, chills, cough productive of sputum. Imaging study was concerning for volume overload so he was asked to be evaluated for more ultrafiltration as per nephrology recommendation. Allergies Iodinated Contrast Media [Iodinated Contrast- Oral and IV Dye] Allergy (Verified 11/24/21 11:44) Nausea/Vomiting/Diarrhea Penicillins Allergy (Verified 11/24/21 11:44) Hives shellfish derived Allergy (Verified 11/24/21 11:44) Nausea/Vomiting/Diarrhea Home Medications: Aspirin [Aspirin EC 81 MG] 81 mg PO DAILY 01/10/17 Fluticasone [Flovent Hfa 110*] 2 sprays IH BID 01/10/17 Pantoprazole [Protonix Tab*] 40 mg PO DAILY 01/10/17 Tamsulosin [Flomax*] 0.4 mg PO SEECOM 01/10/17 Vit A/Vit C/Vit E/Zinc/Copper [Icaps Areds Formula Dr Tablet] 1 each PO DAILY 01/10/17 Zolpidem Tartrate [Ambien*] 10 mg PO BEDTIME PRN PRN 01/10/17 Losartan Potassium 1.5 tab PO DAILY 08/14/22 Gabapentin 300 mg PO DAILY 09/11/22 Sertraline [Zoloft*] 50 mg PO DAILY 09/11/22 Vit B Comp C/Folic Acid/Vit D3 [Dialyvite 800 Plus D Wafer] 1 tab PO SEECOM 09/11/22 Atorvastatin Calcium [Lipitor] 40 mg PO BEDTIME #30 tab 09/13/22 Ticagrelor [Brilinta*] 90 mg PO BID 09/13/22 Carvedilol [Coreg] 3.125 mg PO 04/29/23 Fluticasone [Flonase 50MCG Nasal [place]*] 2 spray JIM PRN 04/29/23 Fluticasone [Flonase 50MCG Nasal [place]*] 2 spray JIM PRN 04/29/23 Gabapentin 300 mg PO DAILY 04/29/23 Tamsulosin [Flomax] 0.4 mg PO BEDTIME 04/29/23 Ticagrelor [Brilinta*] 1 tab PO DAILY 04/29/23 Trazodone [Desyrel] 150 mg PO BEDTIME 04/29/23 carvediloL [Carvedilol] 3.125 mg PO BID 04/29/23 - Past Medical/Surgical History Diabetic: No -: ESRD on HD MWF -: Hyperlipidemia -: GERD -: Hypertension -: Depression/Anxiety -: Macular Degeneration -: RT AKA -: [id number] PPM Psychosocial/ Personal History: Patient lives at home with his family. - Family History Father -: Heart disease Mother -: Lung disease - Social History Alcohol use: No CD- Drugs: No Caffeine use: Yes Review of Systems General: As per HPI Eyes: Unremarkable ENT: Unremarkable Respiratory: Shortness of Breath Cardiovascular: Unremarkable Gastrointestinal: Unremarkable Genitourinary: Unremarkable Musculoskeletal: Unremarkable Integumentary: Unremarkable Neurological: Unremarkable Lymphatics: Unremarkable Physical Examination - Physical Exam General: Alert, Oriented x3 HEENT: Atraumatic Neck: Supple Respiratory: Diminished Cardiovascular: Regular rate/rhythm, Normal S1 S2 Gastrointestinal: Soft and benign Musculoskeletal: No swelling Neurological: Normal speech, Normal strength at 5/5 x4 extr - Studies Laboratory Data (last 24 hrs) 04/29/23 04/29/23 19:15 19:15 WBC 9.90 Hgb 11.9 L Hct 36.0 L Plt Count 354 Sodium 138 Potassium 3.4 L BUN 13 Creatinine 2.51 H Glucose 90 Assessment and Plan - Plan ESRD: Patient did have dialysis today and is on MWF schedule. Continues to have volume overload issue. Slight we will consider nephrology from ultrafiltration for volume management. Hypertension: We will monitor vital signs per unit protocol and continue outpa tient antihypertensive medication. Hyperlipidemia: Continue statin therapy. Anemia of renal disease: Continue to monitor hemoglobin and further management will be as per nephrology recommendation. Prophylaxis: Heparin for DVT prophylaxis. CODE STATUS: Full code. Disposition: We will manage his volume overload as per nephrology recommendation he will be discharged once cleared by nephrology service - Advance Directives Does patient have a Living Will: Yes Does patient have a Durable POA for Healthcare: Yes
[2023-04-29] MEDS ORDERED: ALBUTEROL 2.5 MG/3 ML NEB SOL NEB PRN (20:17)
[2023-04-29] MEDS ORDERED: ONDANSETRON 4 MG/2 ML VIAL IV PRN (20:17)
[2023-04-29] MEDS ORDERED: ACETAMINOPHEN 500 MG TAB PO PRN (20:17)
[2023-04-29] MEDS ORDERED: IPRATROPIUM BROM 0.5MG/2.5ML NEB PRN (20:17)
[2023-04-29 23:44] VITALS: O2SAT 97
[2023-04-30 00:25] VITALS: BMI 28.7
[2023-04-30] MEDS: HEPARIN 5000 UNIT/ML 1 ML VIAL SQ SCH (00:35)
[2023-04-30] MEDS: ZOLPIDEM TARTRATE 10 MG TABLET PO PRN (02:55)
[2023-04-30 06:56] LABS: Absolute Lymphocytes (CBC) 0.1 K/uL (0.7-4.9); Absolute Monocytes 0.1 K/uL (0.1-1.3); Absolute Neutrophil 6.4 K/uL (1.8-8.0); Basophils % 0.1 % (0-1.3); Hemoglobin 10.8 g/dL (13.6-17.9); Lymphocytes % 2.1 % (15.3-44.8); MCHC 32.6 g/dL (32.0-36.0); MPV 6.7 fL (7.6-11.3); Monocytes % 0.9 % (3.3-12.3); Neutrophils % 96.9 % (41.7-73.7); Platelets 330 thou/uL (152-406); RBC Red Blood Cell Count 3.83 M/uL (4.33-5.43); Red Cell Distribution Width 18.9 % (12.1-15.2)
[2023-04-30 07:07] LABS: Anion Gap 7.8 mEq/L (5.0-15.0); Potassium 3.8 mEq/L (3.5-5.1)
[2023-04-30 08:34] LABS: Blood Morphology Comment NOT SEEN (NOT SEEN); Platelet Estimate ADEQ; White Blood Cell Scan OK (OK)
--- NOTE | 2023-04-30 12:14 | P.CNS ---
Date of Consult: 04/30/23 Reason for Consult: fluid overload Chief Complaint: Worsening shortness of breath. History of Present Illness: A 76-year-old male with history of ESRD on HD Saturday and Saturday Via lt AVF , CAD S/p PCI recently , hypertension, hyperlipidemia, and GERD Pt presented with SOB , pt stated he had dialysis yesterday, he is doing dialysis twice weekly and non compliant with time ROS General: weakness Head and Neck: No red eye. No ear pain. GI: denied nausea, voimiting or diarrhea : No polyuria. No dysuria. No hematuria. Respiratory: denied shortness of breath.or cough Cardiovascular:chest pain. leg swelling. Endocrine: No polydipsia. Skin: No rash. Neuro: denid weakness Musculoskeletal: Rt leg amputation Physical exam General: Awake, NAD HEENT: Atraumatic, Normocephalic Neck: Supple, no elevated JVD Respiratory: rales Cardiovascular: No rubs, systolic murmur Gastrointestinal: Soft and benign, Non-distended Musculoskeletal:Rt AKA, Lt foot edema # ESRD on HD Saturday and Saturday HD today Renal diet Monitor renal panel #Fluid overload HD today can be discharged after HD today #CAD S/p PCI Cont home meds # Htn Cont home meds # Anemia of chronic disease H/h Stable #Total time spent 55 minutes including documentation, reviewing labs , placing orders and discussing plan of care with medical staff Allergies Iodinated Contrast Media [Iodinated Contrast- Oral and IV Dye] Allergy (Verified 11/24/21 11:44) Nausea/Vomiting/Diarrhea Penicillins Allergy (Verified 11/24/21 11:44) Hives shellfish derived Allergy (Verified 11/24/21 11:44) Nausea/Vomiting/Diarrhea Home Medications: Aspirin [Aspirin EC 81 MG] 81 mg PO DAILY 01/10/17 Fluticasone [Flovent Hfa 110*] 2 sprays IH BID 01/10/17 Pantoprazole [Protonix Tab*] 40 mg PO DAILY 01/10/17 Tamsulosin [Flomax*] 0.4 mg PO SEECOM 01/10/17 Vit A/Vit C/Vit E/Zinc/Copper [Icaps Areds Formula Dr Tablet] 1 each PO DAILY 01/10/17 Zolpidem Tartrate [Ambien*] 10 mg PO BEDTIME PRN PRN 01/10/17 Losartan Potassium 1.5 tab PO DAILY 08/14/22 Gabapentin 300 mg PO DAILY 09/11/22 Sertraline [Zoloft*] 50 mg PO DAILY 09/11/22 Vit B Comp C/Folic Acid/Vit D3 [Dialyvite 800 Plus D Wafer] 1 tab PO SEECOM 09/11/22 Atorvastatin Calcium [Lipitor] 40 mg PO BEDTIME #30 tab 09/13/22 Ticagrelor [Brilinta*] 90 mg PO BID 09/13/22 Carvedilol [Coreg] 3.125 mg PO 04/29/23 Fluticasone [Flonase 50MCG Nasal [place]*] 2 spray JIM PRN 04/29/23 Fluticasone [Flonase 50MCG Nasal [place]*] 2 spray JIM PRN 04/29/23 Gabapentin 300 mg PO DAILY 04/29/23 Tamsulosin [Flomax] 0.4 mg PO BEDTIME 04/29/23 Ticagrelor [Brilinta*] 1 tab PO DAILY 04/29/23 Trazodone [Desyrel] 150 mg PO BEDTIME 04/29/23 carvediloL [Carvedilol] 3.125 mg PO BID 04/29/23 - Past Medical/Surgical History Diabetic: No -: ESRD on HD MWF -: Hyperlipidemia -: GERD -: Hypertension -: Depression/Anxiety -: Macular Degeneration -: RT AKA -: [id number] PPM Psychosocial/ Personal History: Patient lives at home with his family. - Family History Father Medical History: Heart disease Mother Medical History: Lung disease - Social History Smoking Status: Unknown if ever smoked Alcohol use: No CD- Drugs: No Caffeine use: Yes Physical Examination Temp Pulse Resp BP Pulse Ox 97.7 F 80 16 125/60 98 04/30/23 12:00 04/30/23 12:00 04/30/23 12:00 04/30/23 12:00 04/30/23 12:00 Laboratory Data (last 24 hrs) 04/29/23 04/29/23 19:15 19:15 WBC 9.90 Hgb 11.9 L Hct 36.0 L Plt Count 354 Sodium 138 Potassium 3.4 L BUN 13 Creatinine 2.51 H Glucose 90
[2023-04-30 12:36] VITALS: TEMP 97.7
--- NOTE | 2023-04-30 14:04 | P.DS ---
Admission Date: 04/29/23 Discharge Date: 04/30/23 Disposition: ROUTINE DISCHARGE Discharge Condition: FAIR Reason for Admission: Worsening shortness of breath. - Problems (1) Hypervolemia associated with renal insufficiency Current Visit: Yes Status: Acute (2) End stage chronic kidney disease Current Visit: No Status: Chronic (3) Anemia in chronic kidney disease Current Visit: Yes Status: Acute Brief History of Present Illness: 77-year-old male patient with medical history significant for ESRD on dialysis on Saturday, Saturday, Saturday was evaluated ED for episode of worsening shortness of breath. He reported that he had dialysis earlier on the day of presentation but began to have more shortness of breath. No issues with chest pain, fever, chills, cough productive of sputum. Imaging study was concerning for volume overload so he was asked to be evaluated for more ultrafiltration as per nephrology recommendation. Apparently patient has been getting extra dialysis days. Hospital Course: Patient placed on the observation on the medical floor. He was initially placed on oxygen by nasal cannula. Oxygen was weaned off and patient currently tolerating room air. Patient was seen and evaluated by nephrology Dr. Coles, and he underwent hemodialysis session today. Patient overall clinically improved and denies shortness of breath. He is deemed stable for discharge. Vital Signs/Physical Exam: Temp Pulse Resp BP Pulse Ox 97.7 F 80 16 125/60 98 04/30/23 12:00 04/30/23 12:00 04/30/23 12:00 04/30/23 12:00 04/30/23 12:00 General: Alert, In no apparent distress, Oriented x3 HEENT: Mucous membr. moist/pink Neck: Supple, JVD not distended Respiratory: Clear to auscultation bilaterally, Normal air movement Cardiovascular: No edema, Regular rate/rhythm, Normal S1 S2 Capillary refill: <2 Seconds Gastrointestinal: Soft and benign, Non-distended, No tenderness Musculoskeletal: No swelling Integumentary: No rashes, No cyanosis Neurological: Normal strength at 5/5 x4 extr Laboratory Data at Discharge: WBC 6.60 thou/uL (4.3-10.9) 04/30/23 06:24 Hgb 10.8 g/dL (13.6-17.9) L D 04/30/23 06:24 Hct 33.0 % (39.6-49.0) L 04/30/23 06:24 Plt Count 330 thou/uL (152-406) 04/30/23 06:24 Sodium 139 mEq/L (136-145) 04/30/23 06:24 Potassium 3.8 mEq/L (3.5-5.1) 04/30/23 06:24 BUN 17 mg/dL (7-18) 04/30/23 06:24 Creatinine 3.16 mg/dL (0.70-1.30) H 04/30/23 06:24 Glucose 139 mg/dL (74-106) H 04/30/23 06:24 Home Medications: Aspirin [Aspirin EC 81 MG] 81 mg PO DAILY 01/10/17 Pantoprazole [Protonix Tab*] 40 mg PO DAILY 01/10/17 Vit A/Vit C/Vit E/Zinc/Copper [Icaps Areds Formula Dr Tablet] 1 each PO DAILY 01/10/17 Zolpidem Tartrate [Ambien*] 10 mg PO BEDTIME PRN PRN 01/10/17 Losartan Potassium 1.5 tab PO DAILY 08/14/22 Sertraline [Zoloft*] 50 mg PO DAILY 09/11/22 Vit B Comp C/Folic Acid/Vit D3 [Dialyvite 800 Plus D Wafer] 1 tab PO SEECOM 09/11/22 Atorvastatin Calcium [Lipitor] 40 mg PO BEDTIME #30 tab 09/13/22 Ticagrelor [Brilinta*] 90 mg PO BID 09/13/22 Carvedilol [Coreg] 3.125 mg PO 04/29/23 Fluticasone [Flonase 50MCG Nasal [place]*] 2 spray JIM PRN 04/29/23 Gabapentin 300 mg PO DAILY 04/29/23 Tamsulosin [Flomax*] 0.4 mg PO BEDTIME 04/29/23 Trazodone [Desyrel*] 150 mg PO BEDTIME 04/29/23 Diet: Renal Activity: Ad ana lilia Followup: Nohelia Carrington MD [ACTIVE - CAN ADMIT] - (Within 2 weeks) NONE,NONE [Primary Care Provider] - 1-2 Weeks Time spent managing pt's care (in minutes): 28
--- NOTE | 2023-04-30 14:07 | EKG ---
Test Date: 2023-04-29 Test Time: 18:58:26 Microarray Analyst: SONIA MEASUREMENT RESULTS: Intervals: Rate: 81 AK: 184 QRSD: 192 QT: 510 QTc: 592 [place]: P: 53 AK: 184 QRS: -79 T: 94 INTERPRETIVE STATEMENTS: Normal sinus rhythm Left axis deviation Right bundle branch block Inferior infarct, age undetermined Anterolateral infarct, age undetermined Abnormal ECG Compared to ECG 03/12/2023 07:50:28 Right bundle-branch block now present Left ventricular hypertrophy no longer present Early repolarization no longer present Myocardial infarct finding still present Electronically Signed On 04-30-23 14:05:14 CDT by Palomo Momin
[2023-04-30 15:36] LABS: Hepatitis B Surface Ab - Quant 411.16 mIU/mL (<8.0)
[2023-04-30 15:46] LABS: HBsAG Nonreactive Report Report; Hepatitis B surface AG Interp. Nonreactive (Nonreactive)
[2023-04-30 17:44] VITALS: BP 115/54
--- NOTE | 2023-05-01 07:30 | ECHO ---
HEIGHT: 5 ft 8 in WEIGHT: 189 lb 0 oz DATE OF STUDY: 04/30/[address]: Colten Flores MD 2-DIMENSIONAL: YES M.MODE: YES DOPPLER: YES COLOR FLOW: YES TDS: PORTABLE: YES DEFINITY: BUBBLE STUDY: DIAGNOSIS: PULMONARY EDEMA CARDIAC HISTORY: CATHERIZATION: YES SURGERY: NO PROSTHETIC VALVE: NO PACEMAKER: YES MEASUREMENTS (cm) DIASTOLIC (NORMALS) SYSTOLIC (NORMALS) IVSd 1.2 (0.6-1.2) LA Diam 3.9 (1.9-4.0) LVEF 62% LVIDd 4.7 (3.5-5.7) LVIDs 3.1 (2.0-3.5) %FS 34% LVPWd 1.3 (0.6-1.2) Ao Diam 3.4 (2.0-3.7) 2 DIMENSIONAL ASSESSMENT: RIGHT ATRIUM: NORMAL LEFT ATRIUM: ENLARGED RIGHT VENTRICLE: NORMAL LEFT VENTRICLE: NORMAL TRICUSPID VALVE: MILD TRICUSPID REGURGITATION MITRAL VALVE: MILD MITRAL ANNULAR CALCIFICATION WITH MILD MITRAL REGURGITATION PULMONIC VALVE: NORMAL AORTIC VALVE: NORMAL PERICARDIAL EFFUSION: NONE AORTIC ROOT: NORMAL LEFT VENTRICULAR WALL MOTION: NORMAL DOPPLER/COLOR FLOW: SEE BELOW COMMENTS: 1. NORMAL LEFT VENTRICULAR EJECTION FRACTION 60-65% WITH NORMAL WALL MOTION 2. MODERATE DIASTOLIC DYSFUNCTION 3. MILD MITRAL REGURGITATION 4. MILD TRICUSPID REGURGITATION 5. LEFT ATRIAL ENLARGEMENT 6. SEVERE PULMONARY HYPERTENSION WITH RIGHT VENTRICULAR SYSTOLIC PRESSURE GREATER THAN 60 mmHg TECHNOLOGIST: JESIKA VILLAFUERTE
== END 2023-04-30 19:05 | disposition home or self-care (01) ==
LOC: ER 18:44 → ERHOLD 20:17 → 4TH 22:14
PROVIDERS: ADMIT Internal Medicine Nephrology; ATTEND Internal Medicine
DX: E87.70 Fluid overload, unspecified (principal); I12.0 Hypertensive chronic kidney disease with stage 5 chronic kidney disease or end stage renal disease; N18.6 End stage renal disease; E78.5 Hyperlipidemia, unspecified; D63.1 Anemia in chronic kidney disease; K21.9 Gastro-esophageal reflux disease without esophagitis; Z99.2 Dependence on renal dialysis; Z88.0 Allergy status to penicillin; Z91.013 Allergy to seafood; Z91.041 Radiographic dye allergy status; Z79.82 Long term (current) use of aspirin
CPT/HCPCS: 93005; 93306; 85025 ×2; 80048 ×2; 36415; 84484; 83880; 87340; 86706; 71045; 90935; 94640; 96374; 99285; J1644 ×2; J7613; J7644; J2930; G0378

== ENCOUNTER 2023-06-23 03:42 | Emergency (ER) | payer OTHER, BC ==
[2023-06-23 04:08] LABS: Absolute Basophils 0.1 K/uL (0-0.5); Absolute Eosinophils 0.4 K/uL (0-0.5); Absolute Lymphocytes (CBC) 0.3 K/uL (0.7-4.9); Absolute Monocytes 0.7 K/uL (0.1-1.3); Absolute Neutrophil 7.9 K/uL (1.8-8.0); Basophils % 1.2 % (0-1.3); Eosinophils % 4.6 % (0-4.4); Hematocrit 34.4 % (39.6-49.0); Hemoglobin 10.9 g/dL (13.6-17.9); Lymphocytes % 3.2 % (15.3-44.8); MCH 25.9 pg (27.0-35.0); MCHC 31.7 g/dL (32.0-36.0); MCV 81.8 fL (80-100); MPV 6.6 fL (7.6-11.3); Monocytes % 7.9 % (3.3-12.3); Neutrophils % 83.1 % (41.7-73.7); Nucleated Red Blood Cells % 0.1 % (0-0); Platelets 333 thou/uL (152-406); Red Cell Distribution Width 20.3 % (12.1-15.2)
[2023-06-23] MEDS ORDERED: LORAZEPAM 1 MG TABLET ONE (04:26)
[2023-06-23 04:34] LABS: ALT/SGPT < 14 U/L (16-61); AST/SGOT 11 U/L (15-37); Albumin 3.2 g/dL (3.4-5.0); Albumin/Globulin Ratio 0.8 (1.1-1.8); Alkaline Phosphatase 87 U/L (45-117); Anion Gap 13.1 mEq/L (5.0-15.0); BUN Blood Urea Nitrogen 25 mg/dL (7-18); Bicarbonate 23 mEq/L (21-32); Bilirubin Direct 0.3 mg/dL (0-0.2); Bilirubin Indirect, Calculated 0.4 mg/dL (0.2-0.8); Bilirubin Total 0.7 mg/dL (0.2-1.0); Globulin 4.1 g/dL (2.3-3.5); Glomerular Filtration Rate 14 ml/min (=/>90); Glucose Level 79 mg/dL (74-106); Magnesium 2.4 mg/dL (1.6-2.4); NT PRO-BNP > 35000 pg/mL (<450); Potassium 4.1 mEq/L (3.5-5.1); Protein, Total 7.3 g/dL (6.4-8.2); Sodium Level 136 mEq/L (136-145); Troponin High Sensitivity 15.9 pg/mL (<58.9)
--- NOTE | 2023-06-23 05:30 | ER ---
Nurse's Notes [facility] Name: Amando Grossman Age: 77 yrs Sex: Male : 1945 Arrival Date: 06/23/2023 Time: 03:42 Bed 3 Private MD: Diagnosis: Dyspnea Presentation: 06/22 03:46 Chief complaint: Patient states: I have been having shortness of breath for the past 4 jb4 hours. I have been Short of breath every day. EMS states: Pt reports SOB upon exertion. Was 96% on RA, 99% on 4L NC. pt was found using canned O2 to assist with breathing. Coronavirus screen: At this time, the client does not indicate any symptoms associated with coronavirus-19. Ebola Screen: No symptoms or risks identified at this time. Initial Sepsis Screen: Does the patient meet any 2 criteria? No. Patient's initial sepsis screen is negative. Does the patient have a suspected source of infection? No. Patient's initial sepsis screen is negative. Risk Assessment: Do you want to hurt yourself or someone else? Patient reports no desire to harm self or others. Onset of symptoms was June 23, 2023. Transition of care: patient was not received from another setting of care. 03:46 Method Of Arrival: Ambulatory jb4 03:46 Acuity: KELLY 2 jb4 Historical: - Allergies: 03:50 Iodine; topical is ok; jb4 03:50 PENICILLINS; jb4 03:50 Shellfish Containing Products; jb4 03:50 STATINS HMG COA REDUCTASE INHIBITORS; jb4 - PMHx: 03:50 Dialysis <M and F; Depression; Hypertension; GERD; Anxiety; High Cholesterol; mascular jb4 degeneration; Urinary Urgency; CHF (Urinary Urgency); DM (Urinary Urgency); - PSHx: 03:50 Right above the knee amputation. (Urinary Urgency); jb4 - Immunization history:: Adult Immunizations up to date. - Infectious Disease History:: Denies. - Social history:: Smoking status: Patient denies any tobacco usage or history of. - Family history:: not pertinent. Screenin:24 [facility] ED Fall Risk Assessment (Adult) History of falling in the last 3 months, jb4 including since admission No falls in past 3 months (0 pts) Confusion or Disorientation No (0 pts) Intoxicated or Sedated No (0 pts) Impaired Gait No (0 pts) Mobility Assist Device Used No (0 pt) Altered Elimination No (0 pt) Score/Fall Risk Level 0 - 2 = Low Risk Oriented to surroundings, Maintained a safe environment. Abuse screen: Denies threats or abuse. Nutritional screening: No deficits noted. Tuberculosis screening: No symptoms or risk factors identified. Assessment: 03:44 General: Appears uncomfortable, Behavior is calm, cooperative. Pain: Denies pain. ha1 Neuro: Level of Consciousness is awake, alert, obeys commands, Oriented to person, place, time, situation. Cardiovascular: Reports shortness of breath, Heart tones S1 S2 present Capillary refill < 3 seconds Patient's skin is warm and dry. Rhythm is irregular. Respiratory: Reports shortness of breath at rest Airway is patent Respiratory effort is even, unlabored, Respiratory pattern is regular, symmetrical, Breath sounds are clear bilaterally. GI: Abdomen is round non-distended. Musculoskeletal: No signs and/or symptoms reported regarding the musculoskeletal system. Amputation of right leg. 05:24 Reassessment: Patient appears in no apparent distress at this time. Patient and/or jb4 family updated on plan of care and expected duration. Pain level reassessed. Patient is alert, oriented x 3, equal unlabored respirations, skin warm/dry/pink. Patient states feeling better. Vital Signs: 03:46 BP 145 / 74; Pulse 68; Resp 16; Temp 98.7; Pulse Ox 98% on 4 lpm NC; Weight 86.18 kg jb4 (R); Height 5 ft. 8 in. ; Pain 0/10; 04:22 BP 140 / 78; Pulse 64; Resp 15; Pulse Ox 99% on 4 lpm NC; jb4 05:26 BP 138 / 87; Pulse 64; Resp 16; Pulse Ox 95% on R/A; jb4 03:46 Body Mass Index 28.89 (86.18 kg, 172.72 cm) jb4 03:46 Pain Scale: Adult banner ED Course: 03:44 Patient arrived in ED. jb4 03:44 Travis Olivia MD is Attending Physician. rt 03:50 Triage completed. jb4 03:50 Arm band placed on right wrist. jb4 04:00 Basic Metabolic Panel Sent. ha1 04:00 CBC with Diff Sent. ha1 04:00 LFT's Sent. ha1 04:00 Magnesium Sent. ha1 04:00 NT PRO-BNP Sent. ha1 04:09 XRAY Chest (1 view) In Process Unspecified. EDMS 05:24 Patient has correct armband on for positive identification. Bed in low position. Call jb4 light in reach. Side rails up X 1. Provided Education on: plan of care. 05:24 No provider procedures requiring assistance completed. jb4 05:55 IV discontinued, intact, bleeding controlled, No redness/swelling at site. Pressure jb4 dressing applied. Administered Medications: 04:36 Drug: LORazepam PO 1 mg PO once Route: PO; jb4 05:26 Follow up: Response: No adverse reaction; Marked relief of symptoms; Anxiety decreased; jb4 RASS: Alert and Calm (0) Medication: 05:24 VIS not applicable for this client. jb4 Outcome: 05:30 Discharge ordered by MD. rt 05:55 Discharged to home via ambulance, jb4 05:55 Condition: stable 05:55 Discharge instructions given to patient, Instructed on discharge instructions, follow up and referral plans. medication usage, Demonstrated understanding of instructions, follow-up care, medications, Prescriptions given X 1, 05:57 Patient left the ED. jb4 Signatures: Dispatcher [employer] EDMS Reji Lopez RN RN jb4 Lucia Deluna RN RN ha1 Travis Olivia MD MD rt Corrections: (The following items were deleted from the chart) 04:22 03:44 Pain: Complains of pain in chest Pain does not radiate. Pain currently is 5 out ha1 of 10 on a pain scale. ha1 04:23 03:44 Cardiovascular: Reports chest pain, shortness of breath, Heart tones S1 S2 ha1 present Capillary refill < 3 seconds Patient's skin is warm and dry. Rhythm is irregular ha1 04:23 03:44 Pain: Denies pain. Complains of pain in chest ha1 ha1 04:24 03:44 Pain: Denies pain. Complains of pain in chest ha1 ha1
--- NOTE | 2023-06-23 05:30 | EDPHYS ---
Physician Documentation [facility] Name: Amando Grossman Age: 77 yrs Sex: Male : 1945 Arrival Date: 06/23/2023 Time: 03:42 Bed 3 Private MD: ED Physician Travis Olivia HPI: 06/22 05:42 This 77 yrs old Male presents to ER via Ambulatory with complaints of Shortness Of rt Breath. 05:42 Patient presents to the ED with dyspnea. Patient last had dialysis on Saturday. Denies rt chest pain. Denies other acute complaints, symptoms are moderate in severity, no other aggravating or alleviating factors.. Historical: - Allergies: 03:50 Iodine; topical is ok; jb4 03:50 PENICILLINS; jb4 03:50 Shellfish Containing Products; jb4 03:50 STATINS HMG COA REDUCTASE INHIBITORS; jb4 - PMHx: 03:50 Dialysis <M and F; Depression; Hypertension; GERD; Anxiety; High Cholesterol; mascular jb4 degeneration; Urinary Urgency; CHF (Urinary Urgency); DM (Urinary Urgency); - PSHx: 03:50 Right above the knee amputation. (Urinary Urgency); jb4 - Immunization history:: Adult Immunizations up to date. - Infectious Disease History:: Denies. - Social history:: Smoking status: Patient denies any tobacco usage or history of. - Family history:: not pertinent. ROS: 05:42 Constitutional: Negative for fever, chills, and weight loss, Cardiovascular: Negative rt for chest pain, palpitations, and edema, Abdomen/GI: Negative for abdominal pain, nausea, vomiting, diarrhea, and constipation, MS/Extremity: Negative for injury and deformity, Skin: Negative for injury, rash, and discoloration, Neuro: Negative for headache, weakness, numbness, tingling, and seizure, 05:42 Respiratory: Positive for shortness of breath, Negative for cough, Exam: 05:42 Constitutional: This is a well developed, well nourished patient who is awake, alert, rt and in no acute distress. Head/Face: Normocephalic, atraumatic. Chest/axilla: Normal chest wall appearance and motion. Nontender with no deformity. No lesions are appreciated. Cardiovascular: Regular rate and rhythm with a normal S1 and S2. No gallops, murmurs, or rubs. Normal PMI, no JVD. No pulse deficits. Abdomen/GI: Soft, non-tender, with normal bowel sounds. No distension or tympany. No guarding or rebound. No evidence of tenderness throughout. Skin: Warm, dry with normal turgor. Normal color with no rashes, no lesions, and no evidence of cellulitis. MS/ Extremity: Pulses equal, no cyanosis. Neurovascular intact. Full, normal range of motion. 05:42 ECG was reviewed by the Attending Physician. 05:42 Respiratory: Faint bibasilar crackles, no respiratory distress, Vital Signs: 03:46 BP 145 / 74; Pulse 68; Resp 16; Temp 98.7; Pulse Ox 98% on 4 lpm NC; Weight 86.18 kg jb4 (R); Height 5 ft. 8 in. ; Pain 0/10; 04:22 BP 140 / 78; Pulse 64; Resp 15; Pulse Ox 99% on 4 lpm NC; jb4 05:26 BP 138 / 87; Pulse 64; Resp 16; Pulse Ox 95% on R/A; jb4 03:46 Body Mass Index 28.89 (86.18 kg, 172.72 cm) jb4 03:46 Pain Scale: Adult jb4 MDM: 03:45 Patient medically screened. rt 05:42 Differential diagnosis: Dyspnea, COPD, CHF. Data reviewed: vital signs, nurses notes. rt Consideration of Admission/Observation Escalation of care including admission/observation considered. After Ativan, patient states that his symptoms have completely resolved and that he wishes to go home. Patient with elevated BNP, only minor pulmonary vascular congestion. He is an ESRD patient. No emergent indications for dialysis, his oxygenation is stable. Patient will return for worsening symptoms.. I considered the following discharge prescriptions or medication management in the emergency department Medications were administered in the Emergency Department. See MAR. Independent interpretation of the following test(s) in the Emergency Department X-Ray: My interpretation is No pneumonia seen on my interpretation of x-ray images. Care significantly affected by the following chronic conditions: Chronic Kidney Disease. Counseling: I had a detailed discussion with the patient and/or guardian regarding the historical points, exam findings, and any diagnostic results supporting the discharge/admit diagnosis, lab results, radiology results, the need for outpatient follow up, to return to the emergency department if symptoms worsen or persist or if there are any questions or concerns that arise at home. Response to treatment: the patient's symptoms have markedly improved after treatment. 06/22 03:50 Order name: Basic Metabolic Panel; Complete Time: 04:39 rt 06/22 03:50 Order name: CBC with Diff; Complete Time: 04:26 rt 06/22 03:50 Order name: LFT's; Complete Time: 04:39 rt 06/22 03:50 Order name: Magnesium; Complete Time: 04:39 rt 06/22 03:50 Order name: NT PRO-BNP; Complete Time: 04:39 rt 06/22 03:50 Order name: Troponin HS; Complete Time: 04:39 rt 06/22 03:50 Order name: XRAY Chest (1 view) rt 06/22 03:50 Order name: Cardiac monitoring; Complete Time: 04:00 rt 06/22 03:50 Order name: EKG - Nurse/Tech; Complete Time: 04:00 rt 06/22 03:50 Order name: IV Saline Lock; Complete Time: 03:55 rt 06/22 03:50 Order name: Labs collected and sent; Complete Time: 03:55 rt 06/22 03:50 Order name: O2 Per Protocol; Complete Time: 03:52 rt 06/22 03:50 Order name: O2 Sat Monitoring; Complete Time: 03:52 rt EC:42 Rate is 66 beats/min. Rhythm is regular, Paced with No ectopy, ST, T waves, conduction rt consistent with ventricularly paced rhythm. Left axis deviation noted. Administered Medications: 04:36 Drug: LORazepam PO 1 mg PO once Route: PO; jb4 05:26 Follow up: Response: No adverse reaction; Marked relief of symptoms; Anxiety decreased; jb4 RASS: Alert and Calm (0) Disposition Summary: 06/23/23 05:30 Discharge Ordered Notes: Location: Home rt Problem: an acute exacerbation rt Symptoms: have improved rt Condition: Stable rt Diagnosis - Dyspnea rt Followup: rt - With: Private Physician - When: 2 - 3 days - Reason: Discharge Instructions: - Discharge Summary Sheet rt - Shortness of Breath, Adult rt Forms: - Medication Reconciliation Form rt - Antibiotic Education rt - Prescription Opioid Use rt - Patient Portal Instructions rt - Leadership Thank You Letter rt Prescriptions: - lorazepam 1 mg Oral tablet - take 1 tablet ORAL route every 6 hours as needed for anxiety; 9 tablet; rt Refills: 0, Product Selection Permitted Signatures: Dispatcher [employer] EDMS Reji Lopez RN RN jb4 Travis Olivia MD MD rt Corrections: (The following items were deleted from the chart) 03:51 03:51 BASIC METABOLIC PANEL+C.LAB.BRZ ordered. EDMS EDMS 03:51 03:51 CBC+H.LAB.BRZ ordered. EDMS EDMS 03:51 03:51 HEPATIC FUNCTION+C.LAB.BRZ ordered. EDMS EDMS 03:51 03:51 MAGNESIUM+C.LAB.BRZ ordered. EDMS EDMS 03:51 03:51 PROBNP+C.LAB.BRZ ordered. EDMS EDMS 03:51 03:51 Troponin High Sensitivity+C.LAB.BRZ ordered. EDMS EDMS 03:51 03:51 Chest Single View+RAD.RAD.BRZ ordered. EDMS EDMS
[2023-06-23 06:15] VITALS: BP 138/87; TEMP 98.7; O2SAT 95
--- NOTE | 2023-06-24 12:31 | RAD REPORT ---
EXAM DESCRIPTION: RAD - Chest Single View - 06/23/2023 4:07 am CLINICAL HISTORY: Male, 77 years old, DYSPNEA TECHNIQUE: 1 view of the chest COMPARISON: None available FINDINGS: SUPPORT DEVICES: Right-sided cardiac pacer with lead tips projecting over the right atrium and ventricle. LUNGS/PLEURA: Perihilar interstitial prominence. No consolidation, evident pleural effusion or pneumo thorax. HEART/MEDIASTINUM: Enlarged heart size with central pulmonary vascular prominence. Aortic atheroscler osis. OTHER: No acute osseous findings. IMPRESSION: Heart failure pattern without acute cardiopulmonary findings. Electronically signed by: Dominic Sarabia MD 06/23/2023 04:55 AM CDT Due to temporary technical issues with the PACS/Fluency reporting system, reports are being signed by the in house radiologist without review as a courtesy to ensure prompt reporting. The interpreting r adiologist is fully responsible for the content of the report.
--- NOTE | 2023-06-24 13:21 | EKG ---
Test Date: 2023-06-23 Test Time: 03:55:13 Carbon Printer: KEVIN MEASUREMENT RESULTS: Intervals: Rate: 66 PA: 178 QRSD: 184 QT: 540 QTc: 566 [place]: P: 40 PA: 178 QRS: -82 T: 100 INTERPRETIVE STATEMENTS: Atrial-sensed ventricular-paced rhythm Abnormal ECG Compared to ECG 04/29/2023 18:58:26 Sinus rhythm no longer present Left-axis deviation no longer present Right bundle-branch block no longer present Myocardial infarct finding no longer present Electronically Signed On 06-24-23 13:17:31 CDT by Palomo Momin
== END 2023-06-23 05:57 | disposition home or self-care (01) ==
LOC: ER 03:42
DX: R06.00 Dyspnea, unspecified (principal); Z99.2 Dependence on renal dialysis; Z88.0 Allergy status to penicillin; Z88.8 Allergy status to other drugs, medicaments and biological substances; Z91.013 Allergy to seafood; Z91.048 Other nonmedicinal substance allergy status
CPT/HCPCS: 36415; 71045; 80048; 80076; 83735; 83880; 84484; 85025; 93005; 99284

== ENCOUNTER 2023-06-24 00:38 | Emergency (ER) | payer OTHER, BC ==
[2023-06-24] MEDS ORDERED: LORAZEPAM 1 MG TABLET ONE (01:17)
[2023-06-24 01:29] LABS: Absolute Eosinophils 0.3 K/uL (0-0.5); Absolute Lymphocytes (CBC) 0.3 K/uL (0.7-4.9); Absolute Monocytes 0.8 K/uL (0.1-1.3); Absolute Neutrophil 8.8 K/uL (1.8-8.0); Basophils % 0.4 % (0-1.3); Eosinophils % 2.9 % (0-4.4); Hematocrit 31.9 % (39.6-49.0); Hemoglobin 10.4 g/dL (13.6-17.9); Lymphocytes % 2.6 % (15.3-44.8); MCH 26.4 pg (27.0-35.0); MCHC 32.5 g/dL (32.0-36.0); MCV 81.4 fL (80-100); MPV 6.1 fL (7.6-11.3); Monocytes % 7.7 % (3.3-12.3); Neutrophils % 86.4 % (41.7-73.7); Platelets 322 thou/uL (152-406); RBC Red Blood Cell Count 3.92 M/uL (4.33-5.43); Red Cell Distribution Width 20.6 % (12.1-15.2)
[2023-06-24 02:01] LABS: Albumin 3.2 g/dL (3.4-5.0); Albumin/Globulin Ratio 0.8 (1.1-1.8); Alkaline Phosphatase 87 U/L (45-117); Anion Gap 10.7 mEq/L (5.0-15.0); BUN Blood Urea Nitrogen 30 mg/dL (7-18); Bicarbonate 24 mEq/L (21-32); Bilirubin Direct 0.2 mg/dL (0-0.2); Bilirubin Indirect, Calculated 0.5 mg/dL (0.2-0.8); Bilirubin Total 0.7 mg/dL (0.2-1.0); Globulin 3.9 g/dL (2.3-3.5); Glomerular Filtration Rate 12 ml/min (=/>90); Glucose Level 96 mg/dL (74-106); Magnesium 2.5 mg/dL (1.6-2.4); NT PRO-BNP 127522 pg/mL (<450); PT Prothrombin Time 15.8 SECONDS (9.5-12.5); Potassium 3.7 mEq/L (3.5-5.1); Protein, Total 7.1 g/dL (6.4-8.2); Protime INR 1.45; Sodium Level 137 mEq/L (136-145); Troponin High Sensitivity 31.1 pg/mL (<58.9)
[2023-06-24 02:02] LABS: ALT/SGPT < 14 U/L (16-61); AST/SGOT < 10 U/L (15-37)
--- NOTE | 2023-06-24 02:59 | ER ---
Nurse's Notes [facility] Name: Amando Grossman Age: 77 yrs Sex: Male : 1945 Arrival Date: 06/24/2023 Time: 00:38 Bed 6 Private MD: Diagnosis: Insomnia, unspecified;End stage renal disease;End-stage renal disease on hemodialysis, volume overload mild Presentation: 06/23 00:46 Chief complaint: EMS states: pt has been having shortness of breath for the last 3 cm10 hours. Pt was seen here last night for the same thing. Pt reports that he lost his prescription that was given last night. Coronavirus screen: Client denies travel out of the [place] in the last 14 days. At this time, the client does not indicate any symptoms associated with coronavirus-19. Ebola Screen: Patient denies travel to an Ebola-affected area in the 21 days before illness onset. No symptoms or risks identified at this time. Initial Sepsis Screen: Does the patient meet any 2 criteria? No. Patient's initial sepsis screen is negative. Does the patient have a suspected source of infection? No. Patient's initial sepsis screen is negative. Risk Assessment: Do you want to hurt yourself or someone else? Patient reports no desire to harm self or others. Onset of symptoms was June 24, 2023. 00:46 Method Of Arrival: EMS: [facility] cm10 00:46 Acuity: KELLY 2 cm10 00:54 Care prior to arrival: Medication(s) given: Nitroglycerin, 0.4 mg SL x 1, IV initiated. cm10 22 GA, in the right hand, Glucose check: 105. Triage Assessment: 00:51 General: Appears in no apparent distress. comfortable, Behavior is calm, cooperative. cm10 Pain: Denies pain. EENT: No deficits noted. Neuro: No deficits noted. Level of Consciousness is awake, alert, obeys commands, Oriented to person, place, time, situation, Appropriate for age. Cardiovascular: Reports shortness of breath, Heart tones present. Respiratory: No deficits noted. Reports shortness of breath at rest on exertion Airway is patent Respiratory effort is even, unlabored, Respiratory pattern is regular, symmetrical. Respiratory: Breath sounds are clear bilaterally. Breath sounds are diminished in left lower lobe and right lower lobe. GI: No deficits noted. No signs and/or symptoms were reported involving the gastrointestinal system. Musculoskeletal: No deficits noted. Amputation of right above the knee. Historical: - Allergies: 00:50 Iodine; topical is ok; cm10 00:50 PENICILLINS; cm10 00:50 Shellfish Containing Products; cm10 00:50 STATINS HMG COA REDUCTASE INHIBITORS; cm10 - PMHx: 00:50 Anxiety; CHF; Depression; Dialysis <M and F; DM; GERD; High Cholesterol; Hypertension; cm10 mascular degeneration; Urinary Urgency; - PSHx: 00:50 Right above the knee amputation.; cm10 - Immunization history:: Adult Immunizations up to date. - Infectious Disease History:: Denies. - Social history:: Smoking status: Patient denies any tobacco usage or history of. - Family history:: not pertinent. Screenin:[facility] ED Fall Risk Assessment (Adult) History of falling in the last 3 months, cm10 including since admission No falls in past 3 months (0 pts) Confusion or Disorientation No (0 pts) Intoxicated or Sedated No (0 pts) Impaired Gait Yes (1 pt) Mobility Assist Device Used Yes (1 pt) Altered Elimination No (0 pt) Score/Fall Risk Level 0 - 2 = Low Risk Oriented to surroundings, Maintained a safe environment, Hourly rounding (assess needs \T\ fall precautionary measures) done. Abuse screen: Denies threats or abuse. Denies injuries from another. Nutritional screening: No deficits noted. Tuberculosis screening: No symptoms or risk factors identified. Assessment: 02:30 Reassessment: Patient appears in no apparent distress at this time. No changes from cm10 previously documented assessment. Patient and/or family updated on plan of care and expected duration. Pain level reassessed. Patient is alert, oriented x 3, equal unlabored respirations, skin warm/dry/pink. 02:56 Reassessment: Pt taken off of NC at this time. cm10 Vital Signs: 00:46 BP 150 / 83; Pulse 85; Resp 16; Temp 97.5(IR); Pulse Ox 93% on R/A; Weight 86.18 kg; cm10 Height 5 ft. 8 in. ; Pain 0/10; 01:00 BP 137 / 68; Pulse 80; Resp 20; Pulse Ox 99% on 3 lpm NC; cm10 01:30 BP 135 / 67; Pulse 77; Resp 20; Pulse Ox 98% on 3 lpm NC; cm10 02:00 BP 143 / 76; Pulse 75; Resp 18; Pulse Ox 98% 3 lpm ; cm10 02:15 BP 140 / 78; Pulse 74; Resp 20; Pulse Ox 98% on 3 lpm NC; cm10 03:22 BP 144 / 70; Pulse 74; Resp 17; Pulse Ox 95% ; rv 00:46 Body Mass Index 28.89 (86.18 kg, 172.72 cm) cm10 00:46 Pain Scale: Adult cm10 [place] Coma Score: 03:06 Eye Response: spontaneous(4). Motor Response: obeys commands(6). Verbal Response: sp4 oriented(5). Total: 15. 03:22 Eye Response: spontaneous(4). Motor Response: obeys commands(6). Verbal Response: rv oriented(5). Total: 15. ED Course: 00:40 Patient arrived in ED. ty 00:41 Danni Tavarez, RN is Primary Nurse. cm10 00:50 Triage completed. cm10 00:50 EKG done, by ED staff, reviewed by Davi Gil MD. oe 00:52 Arm band placed on Patient placed in a hallway bed, on a stretcher, on oxygen, on cm10 cigar inspector, on pulse oximetry. 00:54 Maintain EMS IV. Dressing intact. Good blood return noted. Site clean \T\ dry. Gauge \T\ cm 10 site: 20g Right hand. Oxygen administration via nasal cannula \T\ 3L/min Response to oxygen therapy: symptoms improved. 00:54 Patient has correct armband on for positive identification. Bed in low position. Call cm10 light in reach. Side rails up X2. Provided Education on: ER process and procedures.. Client placed on continuous cardiac and pulse oximetry monitoring. NIBP monitoring applied. clerical clerk on. 01:12 Davi Gil MD is Attending Physician. sp4 01:40 XRAY Chest (1 view) In Process Unspecified. EDMS 03:23 No provider procedures requiring assistance completed. rv 03:41 IV discontinued, intact, bleeding controlled, No redness/swelling at site. Pressure rv dressing applied. Administered Medications: 01:19 Drug: LORazepam PO 1 mg PO once Route: PO; cm10 Medication: 00:53 VIS not applicable for this client. cm10 Outcome: 02:59 Discharge ordered by MD. thompson 03:41 Discharged to home via ambulance, rv 03:41 Condition: good 03:41 Discharge instructions given to patient, Instructed on discharge instructions, follow up and referral plans. medication usage, Demonstrated understanding of instructions, follow-up care, medications, Prescriptions given X 1, 03:41 Patient left the ED. rv Signatures: Dispatcher [employer] EDMS Abdulkadir Roth Ronaldo, RN RN rv Davi Gil MD MD sp4 Danni Tavarez RN RN cm10 Oz Bennett Corrections: (The following items were deleted from the chart) 00:53 00:46 BP 150 / 83; Pulse 85bpm; Resp 16bpm; Pulse Ox 93% RA; Temp 97.5F Infrared; cm10 cm10
--- NOTE | 2023-06-24 02:59 | EDPHYS ---
Physician Documentation [facility] Name: Amando Grossman Age: 77 yrs Sex: Male : 1945 Arrival Date: 06/24/2023 Time: 00:38 Bed 6 Private MD: ED Physician Davi Gil HPI: 06/23 01:12 This 77 yrs old Male presents to ER via EMS with complaints of Shortness Of sp4 Breath. 03:06 77-year-old male with history of end-stage renal disease on hemodialysis, history of sp4 anxiety, CHF, depression, diabetes, GERD, high cholesterol, hypertension, presents with complaint of anxiety and shortness of breath. Patient presents with EMS. Patient states that yesterday he was in the emergency room for the same problem and was prescribed as needed lorazepam as needed for anxiety. Patient went ahead and lost his lorazepam and presents here requesting second prescription for lorazepam. . Historical: - Allergies: 00:50 Iodine; topical is ok; cm10 00:50 PENICILLINS; cm10 00:50 Shellfish Containing Products; cm10 00:50 STATINS HMG COA REDUCTASE INHIBITORS; cm10 - PMHx: 00:50 Anxiety; CHF; Depression; Dialysis <M and F; DM; GERD; High Cholesterol; Hypertension; cm10 mascular degeneration; Urinary Urgency; - PSHx: 00:50 Right above the knee amputation.; cm10 - Immunization history:: Adult Immunizations up to date. - Infectious Disease History:: Denies. - Social history:: Smoking status: Patient denies any tobacco usage or history of. - Family history:: not pertinent. ROS: 03:06 Constitutional: Negative for fever, chills, and weight loss, positive shortness of sp4 breath and anxiety 03:06 All other systems are negative, Exam: 03:06 Constitutional: This is a well developed, well nourished patient who is awake, alert, sp4 physically debilitated male with right above-knee amputation. Head/Face: Normocephalic, atraumatic. Eyes: Pupils equal round and reactive to light, extra-ocular motions intact. Lids and lashes normal. Conjunctiva and sclera are not injected. Cornea within normal limits. Periorbital areas with no swelling, redness, or edema. ENT: Nares patent. No nasal discharge, no septal abnormalities noted. Tympanic membranes are normal and external auditory canals are clear. Oropharynx with no redness, swelling, or masses, exudates, or evidence of obstruction, uvula midline. Mucous membranes moist. Neck: Trachea midline, no thyromegaly or masses palpated, and no cervical lymphadenopathy. Supple, full range of motion without nuchal rigidity, or vertebral point tenderness. Chest/axilla: Normal chest wall appearance and motion. Nontender with no deformity. No lesions are appreciated. Cardiovascular: Regular rate and rhythm with a normal S1 and S2. No gallops, murmurs, or rubs. Normal PMI, no JVD. No pulse deficits. Left forearm dialysis fistula with palpable thrill. Left lower extremity mild edema Respiratory: Lungs have equal breath sounds bilaterally, clear to auscultation and percussion. No rales, rhonchi or wheezes noted. No increased work of breathing, no retractions or nasal flaring. Abdomen/GI: Soft, with normal bowel sounds. No distension or tympany. No guarding or rebound. No evidence of tenderness throughout. Back: No spinal tenderness. No costovertebral tenderness. Skin: Warm, dry with normal turgor. Normal color with no rashes, no lesions, and no evidence of cellulitis. MS/ Extremity: Pulses equal, no cyanosis. Neurovascular intact. Full, normal range of motion. There is right above knee amputation Neuro: Awake and alert, GCS 15, oriented to person, place, time, and situation. Cranial nerves II-XII grossly intact. Motor strength 5/5 in all extremities. Sensory grossly intact. Psych: Awake, alert, with orientation to person, place and time. Behavior, mood, and affect are within normal limits 03:06 ECG was reviewed by the Attending Physician. EKG at 0045 reveals ventricular rate 84 , paced rhythm Vital Signs: 00:46 BP 150 / 83; Pulse 85; Resp 16; Temp 97.5(IR); Pulse Ox 93% on R/A; Weight 86.18 kg; cm10 Height 5 ft. 8 in. ; Pain 0/10; 01:00 BP 137 / 68; Pulse 80; Resp 20; Pulse Ox 99% on 3 lpm NC; cm10 01:30 BP 135 / 67; Pulse 77; Resp 20; Pulse Ox 98% on 3 lpm NC; cm10 02:00 BP 143 / 76; Pulse 75; Resp 18; Pulse Ox 98% 3 lpm ; cm10 02:15 BP 140 / 78; Pulse 74; Resp 20; Pulse Ox 98% on 3 lpm NC; cm10 03:22 BP 144 / 70; Pulse 74; Resp 17; Pulse Ox 95% ; rv 00:46 Body Mass Index 28.89 (86.18 kg, 172.72 cm) cm10 00:46 Pain Scale: Adult cm10 [place] Coma Score: 03:06 Eye Response: spontaneous(4). Motor Response: obeys commands(6). Verbal Response: sp4 oriented(5). Total: 15. 03:22 Eye Response: spontaneous(4). Motor Response: obeys commands(6). Verbal Response: rv oriented(5). Total: 15. MDM: 01:13 Patient medically screened. sp4 03:06 ED course: EXAM DESCRIPTION: Chest Single View RadLex: XR CHEST 1 VIEW CLINICAL sp4 HISTORY: 77 years Male, CHEST PAIN COMPARISON: 06/23/2023 FINDINGS: Single AP view of the chest. Right infraclavicular generator pack and pacing leads are stable. Stable cardiomegaly. Bilateral opacities again demonstrated, grossly similar to prior. No pneumothorax. No acute osseous abnormality. IMPRESSION: No significant change.. 03:14 Differential diagnosis: Anxiety Reaction Bronchitis CHF exacerbation, Chronic sp4 Obstructive Pulmonary Disease. Data reviewed: vital signs, nurses notes, EMS record, lab test result(s), EKG, radiologic studies, plain films. ED course: Patient stable for discharge home. [facility] [place] aware does not reveal signs of prescription medicine abuse. . 06/23 01:13 Order name: Basic Metabolic Panel; Complete Time: 02:55 06/23 01:13 Order name: CBC with Diff; Complete Time: 02:55 06/23 01:13 Order name: LFT's; Complete Time: 02:55 06/23 01:13 Order name: Magnesium; Complete Time: 02:55 06/23 01:13 Order name: NT PRO-BNP; Complete Time: 02:55 06/23 01:13 Order name: PT-INR; Complete Time: 02:55 06/23 01:13 Order name: Troponin HS; Complete Time: 02:55 06/23 01:13 Order name: XRAY Chest (1 view) sp4 06/23 01:13 Order name: Cardiac monitoring; Complete Time: 01: sp4 06/23 01:13 Order name: EKG - Nurse/Tech; Complete Time: : sp4 06/23 01:13 Order name: IV Saline Lock; Complete Time: 01: sp4 06/23 01:13 Order name: Labs collected and sent; Complete Time: : sp4 06/23 01:13 Order name: O2 Per Protocol; Complete Time: : sp4 06/23 01:13 Order name: O2 Sat Monitoring; Complete Time: : sp4 EC:06 Rate is 84 beats/min. Rhythm is regular, Paced. Interpreted by me. Reviewed by me. sp4 Administered Medications: 01:19 Drug: LORazepam PO 1 mg PO once Route: PO; cm10 Disposition Summary: 06/24/23 02:59 Discharge Ordered Notes: Location: Home sp4 Problem: new sp4 Symptoms: have improved sp4 Condition: Stable sp4 Diagnosis - Insomnia, unspecified sp4 - End stage renal disease sp4 - End-stage renal disease on hemodialysis, volume overload mild sp4 Followup: sp4 - With: Private Physician - When: 7 - 10 days - Reason: Recheck today's complaints Discharge Instructions: - Discharge Summary Sheet sp4 - Insomnia sp4 Forms: - Patient Portal Instructions sp4 Prescriptions: - Ativan 1 mg Oral tablet - take 1 tablet ORAL route At bedtime As needed Only at bedtime PRN insomnia; 10 sp4 tablet; Refills: 0, Product Selection Permitted Signatures: Dispatcher [facility] Davi Alfonso MD MD sp4 Danni Tavarez RN RN cm10 Corrections: (The following items were deleted from the chart) 01:14 01:13 BASIC METABOLIC PANEL+C.LAB.BRZ ordered. EDMS EDMS :14 01:13 CBC+H.LAB.BRZ ordered. EDMS EDMS :14 01:13 HEPATIC FUNCTION+C.LAB.BRZ ordered. EDMS EDMS :14 01:13 MAGNESIUM+C.LAB.BRZ ordered. EDMS EDMS :14 01:13 PROBNP+C.LAB.BRZ ordered. EDMS EDMS :14 01:13 PROTIME (+INR)+COAG.LAB.BRZ ordered. EDMS EDMS 01:13 Troponin High Sensitivity+C.LAB.BRZ ordered. EDMS EDMS 01:14 Chest Single View+RAD.RAD.BRZ ordered. EDMS EDMS
[2023-06-24 03:53] VITALS: TEMP 97.5
[2023-06-24 04:23] VITALS: BP 144/70; O2SAT 95
--- NOTE | 2023-06-24 12:20 | RAD REPORT ---
EXAM DESCRIPTION: RAD - Chest Single View - 06/24/2023 1:39 am CLINICAL HISTORY: 77 years Male, CHEST PAIN COMPARISON: 06/23/2023 FINDINGS: Single AP view of the chest. Right infraclavicular generator pack and pacing leads are sta ble. Stable cardiomegaly. Bilateral opacities again demonstrated, grossly similar to prior. No pneumo thorax. No acute osseous abnormality. IMPRESSION: No significant change. Electronically signed by: Mairah Bryson MD 06/24/2023 02:00 AM CDT Due to temporary technical issues with the PACS/Fluency reporting system, reports are being signed by the in house radiologist without review as a courtesy to ensure prompt reporting. The interpreting r adiologist is fully responsible for the content of the report.
--- NOTE | 2023-06-24 13:17 | EKG ---
Test Date: 2023-06-24 Test Time: 00:45:14 Racker Octave Board: JACKELIN MEASUREMENT RESULTS: Intervals: Rate: 84 [place]: 206 QRSD: 164 QT: 468 QTc: 553 [place]: P: 50 [place]: 206 QRS: -87 T: 84 INTERPRETIVE STATEMENTS: Atrial-sensed ventricular-paced rhythm Abnormal ECG Compared to ECG 06/23/2023 03:55:13 No significant changes Electronically Signed On 06-24-23 13:16:49 CDT by Palomo Momin
== END 2023-06-24 03:41 | disposition home or self-care (01) ==
LOC: ER 00:38
DX: G47.00 Insomnia, unspecified (principal); E87.70 Fluid overload, unspecified; I13.2 Hypertensive heart and chronic kidney disease with heart failure and with stage 5 chronic kidney disease, or end stage renal disease; N18.6 End stage renal disease; I50.9 Heart failure, unspecified; Z99.2 Dependence on renal dialysis; F41.9 Anxiety disorder, unspecified; Z88.0 Allergy status to penicillin; Z88.8 Allergy status to other drugs, medicaments and biological substances; Z91.013 Allergy to seafood; Z91.048 Other nonmedicinal substance allergy status; Z89.611 Acquired absence of right leg above knee
CPT/HCPCS: 36415; 71045; 80048; 80076; 83735; 83880; 84484; 85025; 85610; 93005; 99285

== ENCOUNTER 2023-06-24 15:23 | Emergency (ER) | payer OTHER, BC ==
[2023-06-24 15:52] LABS: Absolute Basophils 0.1 K/uL (0-0.5); Absolute Eosinophils 0.3 K/uL (0-0.5); Absolute Lymphocytes (CBC) 0.3 K/uL (0.7-4.9); Absolute Monocytes 0.7 K/uL (0.1-1.3); Absolute Neutrophil 6.9 K/uL (1.8-8.0); Basophils % 0.9 % (0-1.3); Eosinophils % 3.2 % (0-4.4); Hematocrit 31.6 % (39.6-49.0); Hemoglobin 9.9 g/dL (13.6-17.9); Lymphocytes % 3.3 % (15.3-44.8); MCH 25.7 pg (27.0-35.0); MCHC 31.4 g/dL (32.0-36.0); MCV 81.7 fL (80-100); MPV 6.4 fL (7.6-11.3); Neutrophils % 84.6 % (41.7-73.7); Platelets 296 thou/uL (152-406); RBC Red Blood Cell Count 3.86 M/uL (4.33-5.43); Red Cell Distribution Width 20.6 % (12.1-15.2)
[2023-06-24 15:53] LABS: Anisocytosis 1+; Blood Morphology Comment NOTED (NOT SEEN); Platelet Estimate ADEQ; White Blood Cell Scan OK (OK)
[2023-06-24 15:55] LABS: PT Prothrombin Time 14.8 SECONDS (9.5-12.5); PTT, Activated Partial Thromb 34.8 SECONDS (24.3-36.9); Protime INR 1.36
--- NOTE | 2023-06-24 16:05 | RAD REPORT ---
EXAM DESCRIPTION: RAD - Chest Single View - 06/24/2023 3:54 pm CLINICAL HISTORY: SOB COMPARISON: Chest Single View dated 06/24/2023; Chest Single View dated 06/23/2023; Chest Single View dated 04/29/2023 FINDINGS: Lines: Pacemaker . Lungs: Hazy opacities bilaterally. Limited by underpenetration and motion. Pleural: Blunted costophrenic angles. Cardiac: Cardiomegaly. Mediastinum: Within normal limits. Bones: No acute fractures. Other: None IMPRESSION: Findings likely indicative of congestive heart failure without significant change.
--- NOTE | 2023-06-24 17:29 | RAD REPORT ---
EXAM DESCRIPTION: CT - Head C Spine Cap Wo Con - 06/24/2023 4:52 pm CLINICAL HISTORY: Trauma, head and neck injury. Chest, abdomen and pelvis pain. fall, LOC, head injury, sob a COMPARISON: Head C Spine Cap Wo Con dated 01/06/2021; Abdomen Pelvis Wo Contrast dated 12/16/2021 TECHNIQUE: CT head without contrast. CT cervical spine without contrast with coronal and sagittal reformatted images. CT chest, abdomen and pelvis with coronal and sagittal reformatted images of the spine. All CT scans are performed using dose optimization technique as appropriate and may include automated exposure control or mA/KV adjustment according to patient size. FINDINGS: CT HEAD WITHOUT CONTRAST: No intracranial hemorrhage, hydrocephalus or extra-axial fluid collection. No acute large vascular te rritory infarct. Remote appearing left basal ganglia lacunar infarct. Chronic small vessel ischemic c hanges. The paranasal sinuses and mastoids are clear. The calvarium is intact. CT CERVICAL SPINE WITHOUT CONTRAST: No fracture or subluxation. The prevertebral soft tissues are normal in thickness.Bridging osteophytes present cervical spine. Th is is consistent with diffuse idiopathic skeletal hyperostosis. Varying degrees of neural foraminal n arrowing. CT CHEST, ABDOMEN, PELVIS: Thorax: Chest Wall: No abnormal mass right upper chest wall pacemaker. Lungs: Right lower lobe consolidative peripheral opacities likely reflecting round atelectasis. Pleura: Small right pleural effusion Sandra/Mediastinum: No lymphadenopathy. Aorta/Pulmonary Arteries: Unremarkable Heart: Normal size. Abdomen/Pelvis: Liver: No acute abnormality or suspicious lesions. Biliary: No biliary ductal dilatation. Stomach: No significant focal abnormality. Duodenum: No significant focal abnormality. Pancreas: No significant abnormality. Spleen: No significant abnormality. Adrenal: No suspicious lesions. Kidney/ureter: No hydronephrosis. No renal calculi. Right nephrectomy. Left renal cortical thinning. Retroperitoneum: No retroperitoneal adenopathy. Vascular: No aneurysm. Atherosclerosis. Bowel: Diverticulosis. No evidence of acute diverticulitis.. Peritoneum: Mild ascites. Bladder: Grossly unremarkable. Reproductive: No adnexal masses. Bones: Fracture to the anterior vertebral body at T8. The fracture is nondisplaced. There is some scl erosis within the vertebral body. No significant height loss. No bony retropulsion. Remote right obtu rator ring fracture. Other: n/a IMPRESSION: 1. No acute intracranial abnormality. 2. No acute fracture or traumatic malalignment of the cervical spine. 3. Suspected acute or subacute fracture involving the T8 vertebral body along its anterior wall. No s ignificant height loss or bony retropulsion. The patient has diffuse idiopathic skeletal hyperostosis (DISH) which likely contributed to this fracture location. Thoracic spine MRI could better establish acuity of the fracture if clinically indicated.
--- NOTE | 2023-06-24 17:58 | EDPHYS ---
Physician Documentation [facility] Name: Amando Grossman Age: 77 yrs Sex: Male : 1945 Arrival Date: 06/24/2023 Time: 15:23 Bed 3 Private MD: ED Physician Zion Cueva HPI: 06/23 15:47 This 77 yrs old Male presents to ER via EMS with complaints of Fall Injury. rn 15:47 Details of fall: The patient fell from seated position, out of a wheelchair. Onset: The rn symptoms/episode began/occurred just prior to arrival. Associated injuries: The patient sustained injury to the head. Severity of symptoms: At their worst the symptoms were mild, in the emergency department the symptoms are unchanged. The patient has not experienced similar symptoms in the past. Per EMS, patient fell from wheelchair, striking head on hard surface, possible loss of consciousness, injury to head. Also noted shortness of breath for the last few hours. Patient states was seen here in our ER last night and discharged to have dialysis today, was unable to make it to dialysis because of fall. Denies any fever. No hemoptysis. Still having shortness of breath and states that shortness of breath preceded fall. Denies pain to either extremity from fall. No traumatic chest pain either.. Historical: - Allergies: 15:33 Iodine; topical is ok; ld1 15:33 PENICILLINS; ld1 15:33 Shellfish Containing Products; ld1 15:33 STATINS HMG COA REDUCTASE INHIBITORS; ld1 - Home Meds: 15:34 Brilinta 60 mg oral tablet 1 tab [Active]; ld1 - PMHx: 15:33 Anxiety; CHF; Depression; Dialysis <M and F; DM; GERD; High Cholesterol; Hypertension; ld1 Urinary Urgency; macular degeneration (Right above the knee amputation.); - PSHx: 15:33 Right above the knee amputation.; ld1 - Immunization history:: Adult Immunizations up to date. - Infectious Disease History:: Denies. - Social history:: Smoking status: Patient denies any tobacco usage or history of. - Family history:: not pertinent. - Hospitalizations: : No recent hospitalization is reported. ROS: 15:47 Constitutional: Negative for fever, chills, and weight loss, Neck: Negative for injury, rn pain, and swelling, Cardiovascular: Negative for chest pain, palpitations, and edema, Respiratory: Positive for shortness of breath Abdomen/GI: Negative for abdominal pain, nausea, vomiting, diarrhea, and constipation, Back: Negative for injury and pain, : Negative for injury, bleeding, discharge, and swelling, MS/Extremity: Negative for injury and deformity, Skin: Positive for skin tear and abrasion to right upper forehead Neuro: Negative for headache, weakness, numbness, tingling, and seizure, Exam: 15:47 Constitutional: This is a well developed, well nourished patient who is awake, alert, rn and in no acute distress. Head/Face: Small skin tear overlying previous right forehead skin cancer excision site Eyes: Pupils equal round and reactive to light, extra-ocular motions intact. ENT: No oral trauma noted Neck: In c-collar, no midline tenderness Chest/axilla: No chest wall tenderness or crepitus noted Cardiovascular: Regular rate and rhythm. No pulse deficits. Respiratory: Mild tachypnea, diminished breath sounds bilateral bases. Abdomen/GI: Soft, nontender Back: Mid back spinal tenderness, no stepoff. MS/ Extremity: Pulses equal, no cyanosis. Neurovascular intact. S/P RLE amputation Neuro: Awake and alert, GCS 15 16:26 ECG was reviewed by the Attending Physician. rn Vital Signs: 15:32 BP 145 / 73; Pulse 73; Resp 30; Pulse Ox 98% on 2 lpm NC; Weight 86.64 kg; Height 5 ft. ld1 8 in. ; Pain 0/10; 17:19 BP 158 / 82; Pulse 71; Resp 34; Pulse Ox 95% ; ko1 17:52 BP 160 / 77; Pulse 70; Resp 24; Pulse Ox 98% ; ko1 18:02 BP 170 / 89; Pulse 72; Resp 24; Pulse Ox 95% ; ko1 18:05 BP 170 / 89; Pulse 72; Resp 22; Pulse Ox 93% on R/A; ld1 18:42 BP 149 / 87; Pulse 73; Resp 33; Pulse Ox 97% on R/A; ko1 15:32 Body Mass Index 29.04 (86.64 kg, 172.72 cm) ld1 15:32 Pain Scale: Adult ld1 MDM: 15:28 Patient medically screened. rn 17:54 ED course: Patient states still makes urine. 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 CT shows vertebral body fracture of T8, examination shows mild mid spinal tenderness but not any skin changes overlying. Patient does not recall previous fall or back injury to explain T8 fracture, we assume acute from this fall because of this.. 17:55 Differential diagnosis: closed head injury, contusion, fracture, sprain, strain. Data rn reviewed: vital signs, nurses notes, radiologic studies, CT scan, and as a result, I will admit patient. Consideration of Admission/Observation Patient was admitted/placed on observation. Escalation of care including admission/observation considered. Counseling: I had a detailed discussion with the patient and/or guardian regarding the historical points, exam findings, and any diagnostic results supporting the discharge/admit diagnosis, radiology results, the need to transfer to another facility. Response to treatment: There is no appreciated change of the patient's symptoms at this time, and as a result, I will admit patient. 18:05 ED course: Accepted for transfer to [facility] for T8 fracture. Notified as well rn not emergent but urgent dialysis.. 06/23 15:30 Order name: CBC with Diff; Complete Time: 16:05 06/23 15:30 Order name: Basic Metabolic Panel; Complete Time: 16:05 06/23 15:30 Order name: Protime (+inr); Complete Time: 16: 06/23 15:30 Order name: Ptt, Activated; Complete Time: 16: 06/23 15:53 Order name: CBC Smear Scan; Complete Time: 16:05 EDDE 06/23 15:30 Order name: CT Traumagram (Head C Spine CAP wo con); Complete Time: 17:35 rn 06/23 15:31 Order name: XRAY Chest (1 view); Complete Time: 16:08 rn 06/23 15:30 Order name: EKG; Complete Time: 15:31 rn 06/23 15:30 Order name: IV Start; Complete Time: 15:34 rn 06/23 15:30 Order name: EKG - Nurse/Tech; Complete Time: 15:36 rn 06/23 15:30 Order name: Cardiac monitoring; Complete Time: 15:33 06/23 15:30 Order name: O2 Sat Monitoring; Complete Time: 15:33 rn 06/23 15:30 Order name: O2 Per Protocol; Complete Time: 15:33 rn 06/23 15:30 Order name: Wound Care; Complete Time: 15:36 rn 06/23 18:18 Order name: Be; Complete Time: 18:18 ld1 EC:26 Rate is 72 beats/min. Rhythm is regular. QRS interval is prolonged. QT interval is rn normal. T waves are Normal. No ST changes noted. Clinical impression: Paced rhythm. Interpreted by me. Administered Medications: 18:00 Not Given (Duplicate Order): [id number] mg IVP once; give over 2 minutes rn 18:10 Drug: Furosemide IVP 80 mg IVP once; give over 2 minutes Route: IVP; Site: right hand; ko1 18:24 Follow up: Response: No adverse reaction ko1 18:39 Drug: Ativan IVP 1 mg IVP once Route: IVP; Site: right hand; ld1 18:45 Follow up: Response: No adverse reaction ko1 Disposition Summary: 06/24/23 17:57 Transfer Ordered Notes: Transfer Location: [facility] rn Reason: Higher level of care rn Condition: Stable rn Problem: new rn Symptoms: are unchanged rn Accepting Physician: (06/24/23 18:45) ko1 Diagnosis - Other fracture of T7-T8 thoracic vertebra, initial encounter for closed fracture rn - End stage renal disease rn Forms: - Medication Reconciliation Form rn - SBAR form rn Signatures: Dispatcher [employer] EDZion Bain MD MD rn Sims, Marcus, DO DO ms3 Mayra Michael, RN RN ld1 Teresa Alanis, RN RN ko1 Corrections: (The following items were deleted from the chart) 15:31 15:31 Head C Spine Cap Wo Con+CT.RAD.BRZ ordered. EDMS EDMS 15:31 15:31 CBC+H.LAB.BRZ ordered. EDMS EDMS 15:31 15:31 BASIC METABOLIC PANEL+C.LAB.BRZ ordered. EDMS EDMS 15:31 15:31 PROTIME (+INR)+COAG.LAB.BRZ ordered. EDMS EDMS 15:31 15:31 PTT, ACTIVATED+COAG.LAB.BRZ ordered. EDMS EDMS 15:34 15:33 PMHx: mascular degeneration; ld1 ld1 17:42 15:47 Constitutional: This is a well developed, well nourished patient who is awake, rn alert, and in no acute distress. Head/Face: Small skin tear overlying previous right forehead skin cancer excision site Eyes: Pupils equal round and reactive to light, extra-ocular motions intact. ENT: No oral trauma noted Neck: In c-collar, no midline tenderness Chest/axilla: No chest wall tenderness or crepitus noted Cardiovascular: Regular rate and rhythm. No pulse deficits. Respiratory: Mild tachypnea, diminished breath sounds bilateral bases. Abdomen/GI: Soft, nontender Back: No spinal tenderness. MS/ Extremity: Pulses equal, no cyanosis. Neurovascular intact. Full, normal range of motion. Equal circumference. Neuro: Awake and alert, GCS 15 rn 17:58 15:47 Constitutional: This is a well developed, well nourished patient who is awake, rn alert, and in no acute distress. Head/Face: Small skin tear overlying previous right forehead skin cancer excision site Eyes: Pupils equal round and reactive to light, extra-ocular motions intact. ENT: No oral trauma noted Neck: In c-collar, no midline tenderness Chest/axilla: No chest wall tenderness or crepitus noted Cardiovascular: Regular rate and rhythm. No pulse deficits. Respiratory: Mild tachypnea, diminished breath sounds bilateral bases. Abdomen/GI: Soft, nontender Back: Mid back spinal tenderness, no stepoff. MS/ Extremity: Pulses equal, no cyanosis. Neurovascular intact. Full, normal range of motion. Equal circumference. Neuro: Awake and alert, GCS 15 rn 18:45 17:57 Dr. spence ko1
--- NOTE | 2023-06-24 17:58 | ER ---
Nurse's Notes [facility] Name: Amando Grossman Age: 77 yrs Sex: Male : 1945 Arrival Date: 06/24/2023 Time: 15:23 Bed 3 Private MD: Diagnosis: Other fracture of T7-T8 thoracic vertebra, initial encounter for closed fracture;End stage renal disease Presentation: 06/23 15:32 Chief complaint: EMS states: toned out to [facility] for pt found on ground in parking lot ld1 2 hours after dialysis treatment. +LOC, pt on Brilinta. Denies pain, Skin tear to right side of scalp. Coronavirus screen: At this time, the client does not indicate any symptoms associated with coronavirus-19. Ebola Screen: No symptoms or risks identified at this time. Initial Sepsis Screen: Does the patient meet any 2 criteria? No. Patient's initial sepsis screen is negative. Does the patient have a suspected source of infection? No. Patient's initial sepsis screen is negative. Risk Assessment: Do you want to hurt yourself or someone else? Patient reports no desire to harm self or others. Onset of symptoms was June 24, 2023. 15:32 Method Of Arrival: EMS: [facility] ld1 15:32 Acuity: KELLY 2 ld1 Triage Assessment: 15:34 General: Appears in no apparent distress. comfortable, Behavior is calm, cooperative, ld1 appropriate for age. Pain: Denies pain. EENT: No signs and/or symptoms were reported regarding the EENT system. Neuro: Level of Consciousness is awake, alert, obeys commands, Oriented to person, place, time, situation. Cardiovascular: Capillary refill < 3 seconds Patient's skin is warm and dry. Rhythm is sinus rhythm. Respiratory: Airway is patent Respiratory effort is even, labored. GI: Abdomen is round non-distended. : No signs and/or symptoms were reported regarding the genitourinary system. Derm: No signs and/or symptoms reported regarding the dermatologic system. Musculoskeletal: No signs and/or symptoms reported regarding the musculoskeletal system. Injury Description: Laceration sustained to right temporal area. Historical: - Allergies: 15:33 Iodine; topical is ok; ld1 15:33 PENICILLINS; ld1 15:33 Shellfish Containing Products; ld1 15:33 STATINS HMG COA REDUCTASE INHIBITORS; ld1 - Home Meds: 15:34 Brilinta 60 mg oral tablet 1 tab [Active]; ld1 - PMHx: 15:33 Anxiety; CHF; Depression; Dialysis <M and F; DM; GERD; High Cholesterol; Hypertension; ld1 Urinary Urgency; macular degeneration (Right above the knee amputation.); - PSHx: 15:33 Right above the knee amputation.; ld1 - Immunization history:: Adult Immunizations up to date. - Infectious Disease History:: Denies. - Social history:: Smoking status: Patient denies any tobacco usage or history of. - Family history:: not pertinent. - Hospitalizations: : No recent hospitalization is reported. Screenin:35 [facility] ED Fall Risk Assessment (Adult) History of falling in the last 3 months, ld1 including since admission No falls in past 3 months (0 pts). Abuse screen: Denies threats or abuse. Denies injuries from another. Nutritional screening: No deficits noted. Tuberculosis screening: No symptoms or risk factors identified. Assessment: 15:35 Reassessment: See triage assessment. ld1 16:47 Reassessment: Patient appears in no apparent distress at this time. No changes from ld1 previously documented assessment. 17:30 Reassessment: Patient appears in no apparent distress at this time. No changes from ld1 previously documented assessment. 18:04 Reassessment: Patient appears in no apparent distress at this time. No changes from ld1 previously documented assessment. Reassessment: Pt requesting to take C collar off - educated patient on importance of leaving C collar on. ERP notified. Neuro: [place] Agitation-Sedation Scale (RASS): +1 Restless Level of Consciousness is awake, confused, Oriented to person. Vital Signs: 15:32 BP 145 / 73; Pulse 73; Resp 30; Pulse Ox 98% on 2 lpm NC; Weight 86.64 kg; Height 5 ft. ld1 8 in. ; Pain 0/10; 17:19 BP 158 / 82; Pulse 71; Resp 34; Pulse Ox 95% ; ko1 17:52 BP 160 / 77; Pulse 70; Resp 24; Pulse Ox 98% ; ko1 18:02 BP 170 / 89; Pulse 72; Resp 24; Pulse Ox 95% ; ko1 18:05 BP 170 / 89; Pulse 72; Resp 22; Pulse Ox 93% on R/A; ld1 18:42 BP 149 / 87; Pulse 73; Resp 33; Pulse Ox 97% on R/A; ko1 15:32 Body Mass Index 29.04 (86.64 kg, 172.72 cm) ld1 15:32 Pain Scale: Adult ld1 ED Course: 15:28 Patient arrived in ED. rn 15:28 Zion Cueva MD is Attending Physician. rn 15:31 Mayra Michael RN is Primary Nurse. ld1 15:33 Triage completed. ld1 15:34 Arm band placed on right wrist. ld1 15:35 Patient has correct armband on for positive identification. Placed in gown. Bed in low ld1 position. Call light in reach. Side rails up X2. medical coding specialist on. Pulse ox on. NIBP on. Door closed. Noise minimized. Warm blanket given. 15:35 Maintain EMS IV. Dressing intact. Good blood return noted. Site clean \T\ dry. Gauge \T\ ld 1 site: 20G RH. 15:40 Protime (+inr) Sent. ko1 15:40 Ptt, Activated Sent. ko1 15:40 Basic Metabolic Panel Sent. ko1 15:40 CBC with Diff Sent. ko1 15:56 XRAY Chest (1 view) In Process Unspecified. EDMS 16:54 CT Traumagram (Head C Spine CAP wo con) In Process Unspecified. EDMS 18:23 Provided Education on: transfer. ko1 18:23 Be cath inserted, using sterile technique, 16 Fr., by id, balloon inflated, to ko1 gravity drainage. 18:32 pt accepted in transfer to [facility] ER by dr brooks admin approval given by Lula Aguirre. 18:42 No provider procedures requiring assistance completed. Patient transferred, IV remains ko1 in place. Administered Medications: 18:00 Not Given (Duplicate Order): [id number] mg IVP once; give over 2 minutes rn 18:10 Drug: Furosemide IVP 80 mg IVP once; give over 2 minutes Route: IVP; Site: right hand; ko1 18:24 Follow up: Response: No adverse reaction ko1 18:39 Drug: Ativan IVP 1 mg IVP once Route: IVP; Site: right hand; ld1 18:45 Follow up: Response: No adverse reaction ko1 Medication: 15:35 VIS not applicable for this client. ld1 Outcome: 17:57 ER care complete, transfer ordered by . rn 18:42 Transferred by ground EMS [facility]. to [facility], Transfer form ko1 completed. X-rays sent w/ patient. 18:42 Condition: stable 18:42 Discharge instructions given to patient, EMS, Instructed on the need for transfer, Demonstrated understanding of 18:45 Patient left the ED. ko1 Signatures: Dispatcher [employer] EDMS Elis Kaur Roman, MD MD rn Sims, Lauren, RN RN ld1 Teresa Alanis RN RN ko1 Corrections: (The following items were deleted from the chart) 15:34 15:33 PMHx: mascular degeneration; ld1 ld1 18:02 17:19 BP 158 / 82; Pulse 71bpm; Resp 16bpm; Pulse Ox 95%; ko1 ko1 18:02 17:52 BP 160 / 77; Pulse 70bpm; Resp 16bpm; Pulse Ox 98%; ko1 ko1
[2023-06-24] MEDS ORDERED: FUROSEMIDE 100 MG/10 ML VIAL IV ONE (18:09)
[2023-06-24] MEDS ORDERED: LORazepam 2 MG/ML VIAL ONE (18:35)
[2023-06-24 19:43] VITALS: BP 149/87; O2SAT 97
--- NOTE | 2023-06-25 08:03 | CON ---
Date of Consultation: 06/24/2023 Chief Complaint: End-stage renal disease. History Of Present Illness: The patient was transferred to emergency room. He came to dialysis ____ the patient was found to have T7 and T8 fracture. He dialysis. He was found on th e ground in the parking lot. He underwent dialysis today. Dialysis nurse did call 911 and EMS arriv ed and took the patient to emergency room. I spoke to emergency physician and the patient in the emergency room. The patient was awake and oriented to person and place. He was complaining of some event of the fall. Apparently, he was coming to dialysis center today and he fell . Review of Systems: Constitutional: Denies fever, chills. Eyes: Denies vision changes. Ears, Nose, Mouth, and Throat: Denies sore throat, earache. Respiratory: . GI: Denies nausea, vomiting. : Denies dysuria, hematuria. Past Medical History: Anxiety, congestive heart failure, dysfunction, end-stage renal josep lure, on hemodialysis, hypertension, urinary degeneration, right above-knee amp utation due to chronic infection. Past Surgical History: Right above-knee amputation, status post dialysis catheter placement, AV acce ss creation for dialysis. Social History: Denies tobacco, alcohol, illicit drugs. Family History: No kidney in the family. Physical Examination: General: The patient is 98% on 2 L nasal cannula. HEENT: Eyes, anicteric sclerae. Dressing on the present. No active bleeding. Oral muco sa moist. No pallor. Neck: Supple. No bruits. Lungs: Coarse breath sounds bilaterally. Heart: S1, S2. Abdomen: Obese, soft, nontender. No rebound. No guarding. Extremities: Edema present in the left lower extremity, status post AKA. Laboratory Work: Showed BUN 35, creatinine 5.01, glucose 95, calcium 8.7, sodium 136, potassium 4.0, chloride 107, CO2 24. Impression And Plan: 1.End-stage renal disease. The patient will resume dialysis as soon as possible. The patient is un dergoing workup for possible fracture and subsequently workup showed thoracic T8 and T7 fracture. Th e patient was transferred to the [facility] for further evaluation. I rec ommend to do dialysis as soon as possible. The patient has some fluid overload, peripheral edema, al though he is on O2 nasal cannula and SpO2 saturation remains in acceptable range. 2.Status post fall. Recommend cardiac workup to rule out acute coronary syndrome. 3.Hypertension. Monitor blood pressure. Continue blood pressure medication. 4.Thoracic spine fracture. Further recommendation from Ortho. ANTHONY/MODL Voice ID: [id number] Report ID: [id number]
--- NOTE | 2023-06-25 11:00 | EKG ---
Test Date: 2023-06-24 Test Time: 15:37:17 Rail Transportation Operator: MARK MEASUREMENT RESULTS: Intervals: Rate: 72 MA: 180 QRSD: 182 QT: 520 QTc: 569 [place]: P: 41 MA: 180 QRS: -83 T: 97 INTERPRETIVE STATEMENTS: Atrial-sensed ventricular-paced rhythm Abnormal ECG Compared to ECG 06/24/2023 00:45:14 No significant changes Electronically Signed On 06-25-23 10:59:15 CDT by Davin Good
== END 2023-06-24 18:45 | disposition short-term general hospital (02) ==
LOC: ER 15:23
DX: S22.068A Other fracture of T7-T8 thoracic vertebra, initial encounter for closed fracture (principal); I13.2 Hypertensive heart and chronic kidney disease with heart failure and with stage 5 chronic kidney disease, or end stage renal disease; N18.6 End stage renal disease; I50.9 Heart failure, unspecified; Z99.2 Dependence on renal dialysis; I10 Essential (primary) hypertension; W19.XXXA Unspecified fall, initial encounter; Z77.22 Contact with and (suspected) exposure to environmental tobacco smoke (acute) (chronic); Z88.0 Allergy status to penicillin; Z88.8 Allergy status to other drugs, medicaments and biological substances; Z91.013 Allergy to seafood; Z91.048 Other nonmedicinal substance allergy status
CPT/HCPCS: 36415; 51702; 70450; 71045; 71250; 72125; 80048; 85025; 85610; 85730; 93005; 96374; 96375; 99285

== ENCOUNTER 2023-07-23 04:59 | Inpatient (IN) | payer OTHER, BC ==
[2023-07-23 05:27] LABS: Absolute Eosinophils 0.3 K/uL (0-0.5); Absolute Lymphocytes (CBC) 0.3 K/uL (0.7-4.9); Absolute Monocytes 0.5 K/uL (0.1-1.3); Absolute Neutrophil 5.3 K/uL (1.8-8.0); Basophils % 0.6 % (0-1.3); Eosinophils % 4.1 % (0-4.4); Hematocrit 25.9 % (39.6-49.0); Hemoglobin 8.6 g/dL (13.6-17.9); Lymphocytes % 4.8 % (15.3-44.8); MCH 28.8 pg (27.0-35.0); MCHC 33.2 g/dL (32.0-36.0); MCV 86.9 fL (80-100); MPV 6.5 fL (7.6-11.3); Monocytes % 7.2 % (3.3-12.3); Neutrophils % 83.3 % (41.7-73.7); Nucleated Red Blood Cells % 0.1 % (0-0); Platelets 320 thou/uL (152-406); RBC Red Blood Cell Count 2.98 M/uL (4.33-5.43); Red Cell Distribution Width 26.5 % (12.1-15.2)
[2023-07-23 05:30] LABS: PT Prothrombin Time 13.5 SECONDS (9.5-12.5); Protime INR 1.23
[2023-07-23 06:01] LABS: Albumin 3.5 g/dL (3.4-5.0); Alkaline Phosphatase 59 U/L (45-117); BUN Blood Urea Nitrogen 22 mg/dL (7-18); Bicarbonate 27 mEq/L (21-32); Bilirubin Direct 0.2 mg/dL (0-0.2); Bilirubin Indirect, Calculated 0.3 mg/dL (0.2-0.8); Bilirubin Total 0.5 mg/dL (0.2-1.0); Globulin 3.4 g/dL (2.3-3.5); Glomerular Filtration Rate 17 ml/min (=/>90); Glucose Level 91 mg/dL (74-106); Magnesium 2.1 mg/dL (1.6-2.4); NT PRO-BNP 60823 pg/mL (<450); Phosphorus 3.6 mg/dL (2.5-4.9); Protein, Total 6.9 g/dL (6.4-8.2); Sodium Level 131 mEq/L (136-145)
[2023-07-23 06:02] LABS: ALT/SGPT < 14 U/L (16-61); AST/SGOT < 10 U/L (15-37); Troponin High Sensitivity 214.8 pg/mL (<58.9)
[2023-07-23] MEDS ORDERED: LIDOCAINE 1% 20 ML MDV ONE (06:05)
--- NOTE | 2023-07-23 06:35 | P.HP ---
Certification for Inpatient Patient admitted to: Observation With expected LOS: <2 Midnights Practitioner: I am a practitioner with admitting privileges, knowledge of patient current condition, hospital course, and medical plan of care. Services: Services provided to patient in accordance with Admission requirements found in Title 42 Section 412.3 of the Code of Federal Regulations Patient History Date of Service: 07/23/23 Reason for admission: Chest pain History of Present Illness: 77 yrs old Male with past medical history of anxiety, CHF, depression, dialysis, end-stage renal disease, GERD, hypertension, high cholesterol, macular degeneration presents acute onset chest pain on awakening 2 hours prior to arrival. He reports chest pain is 2 out of 10, substernal, nonradiating, he reports PCI 1 year ago, no reported diaphoresis, shortness of breath, dizziness, edema. Plan to admit for NSTEMI, chest pain rule out [place] to observation with cardiology to consult, EKG sinus rhythm 71 nonspecific ventricular ventricular block left inferior infarct age undetermined, abnormal EKG, Troponin 214, BNP 18550, CXR IMPRESSION: Central venous catheter with its tip in the superior vena cava No pneumothorax Allergies Iodinated Contrast Media [Iodinated Contrast- Oral and IV Dye] Allergy (Verified 11/24/21 11:44) Nausea/Vomiting/Diarrhea Penicillins Allergy (Verified 11/24/21 11:44) Hives shellfish derived Allergy (Verified 11/24/21 11:44) Nausea/Vomiting/Diarrhea Home Medications: Aspirin [Aspirin EC 81 MG] 81 mg PO DAILY 01/10/17 Pantoprazole [Protonix Tab*] 40 mg PO DAILY 01/10/17 Vit A/Vit C/Vit E/Zinc/Copper [Icaps Areds Formula Dr Tablet] 1 each PO DAILY 01/10/17 Zolpidem Tartrate [Ambien*] 10 mg PO BEDTIME PRN PRN 01/10/17 Losartan Potassium 1.5 tab PO DAILY 08/14/22 Sertraline [Zoloft*] 50 mg PO DAILY 09/11/22 Vit B Comp C/Folic Acid/Vit D3 [Dialyvite 800 Plus D Wafer] 1 tab PO SEECOM 09/11/22 Atorvastatin Calcium [Lipitor] 40 mg PO BEDTIME #30 tab 09/13/22 Ticagrelor [Brilinta*] 90 mg PO BID 09/13/22 Carvedilol [Coreg] 3.125 mg PO 04/29/23 Fluticasone [Flonase 50MCG Nasal [place]*] 2 spray JIM PRN 04/29/23 Gabapentin 300 mg PO DAILY 04/29/23 Tamsulosin [Flomax*] 0.4 mg PO BEDTIME 04/29/23 Trazodone [Desyrel*] 150 mg PO BEDTIME 04/29/23 - Past Medical/Surgical History Diabetic: No -: ESRD on HD MWF -: Hyperlipidemia -: GERD -: Hypertension -: Depression/Anxiety -: Macular Degeneration -: RT AKA -: [id number] PPM Psychosocial/ Personal History: Patient lives at home with his family. - Family History Father -: Heart disease Mother -: Lung disease - Social History Alcohol use: No CD- Drugs: No Caffeine use: Yes Review of Systems per HPI Physical Examination - Physical Exam General: Alert, In no apparent distress, Oriented x3 HEENT: Atraumatic, Normocephalic Neck: JVD not distended Respiratory: Normal air movement, Diminished Cardiovascular: Normal pulses, Regular rate/rhythm Capillary refill: <2 Seconds Gastrointestinal: Normal bowel sounds, Soft and benign Musculoskeletal: No clubbing, No swelling Integumentary: No breakdown, No significant lesion Neurological: Normal speech, Normal strength at 5/5 x4 extr - Studies Laboratory Data (last 24 hrs) 07/23/23 07/23/23 07/23/23 05:13 05:13 05:13 WBC 6.40 Hgb 8.6 L Hct 25.9 L Plt Count 320 PT 13.5 H INR 1.23 Sodium 131 L Potassium 4.0 BUN 22 H Creatinine 3.51 H Glucose 91 Phosphorus 3.6 Magnesium 2.1 Total Bilirubin 0.5 AST < 10 L ALT < 14 L Alkaline Phosphatase 59 Assessment and Plan - Plan Assessment plan NSTEMI Chest pain rule out [place] Cardiology consult, trend troponins, telemetry, Aspirin, Plavix, antilipid, Lasix, presents acute onset chest pain on awakening 2 hours prior to arrival. He reports chest pain is 2 out of 10, substernal, nonradiating, he reports PCI 1 year ago, no reported diaphoresis, shortness of breath, dizziness, edema. EKG sinus rhythm 71 nonspecific ventricular ventricular block left inferior infarct age undetermined, abnormal EKG, Troponin 214, BNP 40475, CXR IMPRESSION: Central venous catheter with its tip in the superior vena cava No pneumothorax End-stage renal disease on hemodialysis Nephrology consult anxiety CHF depression, GERD hypertension high cholesterol macular degeneration Resume appropriate home meds Full code DVT heparin Diet n.p.o. until cardiology sees patient Disposition, home independent prior Discharge Plan: Home - Advance Directives Does patient have a Living Will: No Does patient have a Durable POA for Healthcare: No - Code Status/Comfort Care Code Status: Full Code Critical Care: No Time Spent Managing Pts Care (In Minutes): 55
--- NOTE | 2023-07-23 06:38 | ER ---
Nurse's Notes [facility] Name: Amando Grossman Age: 77 yrs Sex: Male : 1945 Arrival Date: 07/23/2023 Time: 04:59 Bed 16 Private MD: Diagnosis: NSTEMI Presentation: 07/22 05:08 Chief complaint: EMS states: Chest pain that woke him out of a sleep 2 hours [employer]ANGE MANAGEMENT [employer]IST vc1 with some Shortness of breath. Coronavirus screen: Vaccine status: Patient reports receiving the 2nd dose of the covid vaccine. Client denies travel out of the [place] in the last 14 days. At this time, the client does not indicate any symptoms associated with coronavirus-19. Ebola Screen: Patient negative for fever greater than or equal to 101.5 degrees Fahrenheit, and additional compatible Ebola Virus Disease symptoms Patient denies exposure to infectious person. Patient denies travel to an Ebola-affected area in the 21 days before illness onset. No symptoms or risks identified at this time. Initial Sepsis Screen: Does the patient meet any 2 criteria? No. Patient's initial sepsis screen is negative. Does the patient have a suspected source of infection? No. Patient's initial sepsis screen is negative. Risk Assessment: Do you want to hurt yourself or someone else? Patient reports no desire to harm self or others. Onset of symptoms was July 23, 2023 at 03:00. Care prior to arrival: Medication(s) given: ASA, 81 mg, x 4. Activity prior to arrival: None. Mechanism of Injury: No Mechanism of Injury. Transition of care: patient was not received from another setting of care. 05:08 Method Of Arrival: EMS: [facility] vc1 05:08 Acuity: KELLY 3 vc1 Triage Assessment: 05:11 General: Appears in no apparent distress. comfortable, obese, well developed, Behavior vc1 is calm, cooperative, appropriate for age. Pain: Denies pain. EENT: No deficits noted. No signs and/or symptoms were reported regarding the EENT system. Neuro: Level of Consciousness is awake, alert, obeys commands, Oriented to person, place, time, situation, Appropriate for age. Cardiovascular: Reports chest pain and shortness of breath that has resolved Heart tones S1 S2. Cardiovascular: Chest pain woke up out of sleep with sharp midsternal chest pain rated 10/10. Pain has resolved.. Dialysis shunt: in the left arm. Respiratory: Airway is patent Respiratory effort is even, unlabored, Respiratory pattern is regular, symmetrical. GI: No signs and/or symptoms were reported involving the gastrointestinal system. Abdomen is round non-distended, obese. : No deficits noted. No signs and/or symptoms were reported regarding the genitourinary system. Derm: Skin is intact, Skin is normal, Skin temperature is warm. Musculoskeletal: No signs and/or symptoms reported regarding the musculoskeletal system. Amputation of AKA. Historical: - Allergies: 05:10 Iodine; topical is ok; vc1 05:10 PENICILLINS; vc1 05:10 Shellfish Containing Products; vc1 05:10 STATINS HMG COA REDUCTASE INHIBITORS; vc1 - PMHx: 05:10 Anxiety; CHF; Depression; Dialysis <M and F; DM; GERD; Hypertension; High Cholesterol; vc1 macular degeneration; Urinary Urgency; - PSHx: 05:10 Right above the knee amputation.; vc1 - Immunization history:: Client reports receiving the 2nd dose of the Covid vaccine, Flu vaccine is up to date. - Infectious Disease History:: Denies. - Social history:: Smoking status: Patient denies any tobacco usage or history of. - Family history:: not pertinent. Screenin:14 Abuse screen: Denies threats or abuse. Nutritional screening: No deficits noted. vc1 Tuberculosis screening: No symptoms or risk factors identified. 08:09 [facility] ED Fall Risk Assessment (Adult) History of falling in the last 3 months, ap3 including since admission Yes- fall prone (multiple falls) (3 pts) Confusion or Disorientation No (0 pts) Intoxicated or Sedated No (0 pts) Impaired Gait Yes (1 pt) Mobility Assist Device Used Yes (1 pt) Altered Elimination No (0 pt) Score/Fall Risk Level 3 or more points = High Risk Oriented to surroundings, Maintained a safe environment, Educated pt \T\ family on fall prevention, incl call for assistance when getting out of bed, Assessed \T\ reinforced patient's understanding of fall precautions, Provided non-skid footwear, Hourly rounding (assess needs \T\ fall precautionary measures) done, Used ambulatory aids as needed (educated on \T\ assisted with), Used gait belt as appropriate Implemented a Fall Risk Plan of Care. Assessment: 05:20 Pain: Denies pain. Complains of pain in chest Pain does not radiate. Pain currently is jj7 0 out of 10 on a pain scale. at worst was 10 out of 10 on a pain scale. Pain began 2 hours ago. Is Noted to be. Neuro: Level of Consciousness is awake, alert, obeys commands, Oriented to person, place, time, situation, Appropriate for age. Cardiovascular: Chest pain is denied. Respiratory: Reports shortness of breath. Vital Signs: 05:08 BP 91 / 51; Pulse 71; Resp 18; Temp 97.5; Pulse Ox 95% on R/A; Weight 81.65 kg; Pain vc1 0/10; 06:00 BP 99 / 55; Pulse 65; Resp 17; Pulse Ox 100% on 2 lpm NC; jj7 07:29 BP 103 / 52; Pulse 65; Resp 17; Temp 98; Pulse Ox 100% on 3 lpm NC; Weight 83.91 kg; ap3 Height 5 ft. 8 in. ; Pain 0/10; 07:29 Body Mass Index 28.13 (83.91 kg, 172.72 cm) ap3 05:08 Pain Scale: Adult vc1 07:29 Pain Scale: Adult ap3 Micah Coma Score: 06:51 Eye Response: spontaneous(4). Motor Response: obeys commands(6). Verbal Response: sp4 oriented(5). Total: 15. ED Course: 05:00 Patient arrived in ED. jj6 05:02 Davi Gil MD is Attending Physician. sp4 05:10 Triage completed. vc1 05:14 Arm band placed on right wrist. vc1 05:14 Patient has correct armband on for positive identification. Placed in gown. Bed in low vc1 position. Call light in reach. training and development director on. Pulse ox on. NIBP on. 05:20 Provided Education on: USE OF CALL SALEEM. jj7 05:25 Basic Metabolic Panel Sent. rv1 05:25 CBC with Diff Sent. rv1 05:25 LFT's Sent. rv1 05:25 Magnesium Sent. rv1 05:25 NT PRO-BNP Sent. rv1 05:25 PT-INR Sent. rv1 05:25 Troponin HS Sent. rv1 05:25 Basic Metabolic Panel Sent. lg3 05:25 CBC with Diff Sent. lg3 05:25 LFT's Sent. lg3 05:25 Magnesium Sent. lg3 05:25 NT PRO-BNP Sent. lg3 05:25 Missed attempt(s): 22 gauge in right antecubital area. Bleeding controlled, band aid lg3 applied, catheter tip intact. 05:30 Missed attempt(s): 22 gauge Bleeding controlled, band aid applied, catheter tip intact. vc1 05:35 Missed attempt(s): 20 gauge Bleeding controlled, band aid applied, catheter tip intact. vc1 05:38 XRAY Chest (1 view) In Process Unspecified. EDMS 05:40 Missed attempt(s): 20 gauge Bleeding controlled, band aid applied, catheter tip intact. vc1 05:44 Dominique Gibson RN is Primary Nurse. jj7 05:45 Missed attempt(s): 18 gauge IV attempted by provider, failed attempt. Bleeding vc1 controlled, band aid applied, catheter tip intact. 06:00 Warm blanket given. Procedure consent explained by physician, signed by patient. jj7 06:00 Oxygen administration via nasal cannula \T\ 2L/min Response to oxygen therapy: symptoms jj7 improved. 06:04 Assisted provider with central line placement. Set up central line tray. Triple lumen jj7 line placed in left internal jugular. Line placed by Davi Gil MD Placement verified by blood return, Dressed with Tegaderm, Patient tolerated well. Before procedure, did Practitioner(s) obtain informed consent? Yes. Patient \T\ family education about procedure, CLABSI prevention and S/S of infection? Yes. Was handwashing/sanitizing done immediately prior to procedure? Yes. Was patient positioned to in a way to prevent air embolism? Yes. Was procedure site sterilized? Yes, with chlorhexidine. Was the site allowed to dry? Yes. Was local anesthetic and/or sedation utilized? Yes. Were unused ports clamped during insertion? Was blood aspirated from each lumen? Yes. After the procedure, did the Practitioner(s) clean the site and apply a sterile dressing? Yes. 06:35 Paolo Minaya MD is Hospitalizing Provider. sp4 06:51 Chest Single View XRAY In Process Unspecified. EDMS 07:08 Report given to RUTH JURADO. jj7 08:09 Patient admitted, IV remains in place. ap3 Administered Medications: 07:07 Drug: Zolpidem PO 10 mg PO once Route: PO; jj7 08:10 Follow up: Response: No adverse reaction ap3 07:07 Drug: Albumin IVPB 25 grams 100 ml IVPB once; (Note: Albumin 25% concentration) Volume: jj7 100 ml; Route: IVPB; Site: left subclavian; 08:10 Follow up: IV Status: Completed infusion; IV Intake: 100ml ap3 Medication: 05:20 VIS not applicable for this client. jj7 Intake: 08:10 IV: 100ml; Total: 100ml. ap3 Outcome: 06:37 Decision to Hospitalize by Provider. sp4 08:08 Admitted to Med/surg accompanied by gwen ap3 08:08 Condition: good 08:08 Discharge instructions given to patient, Instructed on the need for admit, 08:10 Patient left the ED. ap3 Signatures: Dispatcher [employer] EDMS Ruth Laura RN RN ap3 Marcy Duvall RN RN lg3 Lisbeth Jameson jj6 Kim Munroe RN RN vc1 Dominique Gibson RN RN jj7 Briana Cxo Sergey, MD MD sp4
--- NOTE | 2023-07-23 06:38 | EDPHYS ---
Physician Documentation [facility] Name: Amando Grossman Age: 77 yrs Sex: Male : 1945 Arrival Date: 07/23/2023 Time: 04:59 Bed 16 Private MD: ED Physician Davi Gil HPI: 07/22 05:02 This 77 yrs old Male presents to ER via Unassigned with complaints of Chest sp4 Pain. 06:50 77-year-old male with past medical history of anxiety, CHF, depression, dialysis, sp4 end-stage renal disease, GERD, hypertension, high cholesterol, macular degeneration presents acute onset chest pain on awakening 2 hours prior to arrival. Patient presents with EMS. . Historical: - Allergies: 05:10 Iodine; topical is ok; vc1 05:10 PENICILLINS; vc1 05:10 Shellfish Containing Products; vc1 05:10 STATINS HMG COA REDUCTASE INHIBITORS; vc1 - PMHx: 05:10 Anxiety; CHF; Depression; Dialysis <M and F; DM; GERD; Hypertension; High Cholesterol; vc1 macular degeneration; Urinary Urgency; - PSHx: 05:10 Right above the knee amputation.; vc1 - Immunization history:: Client reports receiving the 2nd dose of the Covid vaccine, Flu vaccine is up to date. - Infectious Disease History:: Denies. - Social history:: Smoking status: Patient denies any tobacco usage or history of. - Family history:: not pertinent. ROS: 06:50 Constitutional: Negative for fever, chills, and weight loss, positive acute onset chest sp4 pain 06:50 All other systems are negative, Exam: 06:51 Constitutional: This is a well developed, well nourished patient who is awake, alert, sp4 and in no acute distress. Frail elderly gentleman right above-knee amputation, left arm dialysis fistula, right-sided pacemaker Head/Face: Normocephalic, atraumatic. Eyes: Pupils equal round and reactive to light, extra-ocular motions intact. Lids and lashes normal. Conjunctiva and sclera are not injected. Cornea within normal limits. Periorbital areas with no swelling, redness, or edema. ENT: Nares patent. No nasal discharge, no septal abnormalities noted. Tympanic membranes are normal and external auditory canals are clear. Oropharynx with no redness, swelling, or masses, exudates, or evidence of obstruction, uvula midline. Mucous membranes moist. Neck: Trachea midline, no thyromegaly or masses palpated, and no cervical lymphadenopathy. Supple, full range of motion without nuchal rigidity, or vertebral point tenderness. Chest/axilla: Normal chest wall appearance and motion. Nontender with no deformity. No lesions are appreciated. Cardiovascular: Regular rate and rhythm with a normal S1 and S2. No gallops, murmurs, or rubs. Normal PMI, no JVD. No pulse deficits. Respiratory: Lungs have equal breath sounds bilaterally, clear to auscultation and percussion. No rales, rhonchi or wheezes noted. No increased work of breathing, no retractions or nasal flaring. Abdomen/GI: Soft, with normal bowel sounds. No distension or tympany. No guarding or rebound. No evidence of tenderness throughout. Back: No spinal tenderness. No costovertebral tenderness. Skin: Warm, dry with normal turgor. Normal color with no rashes, no lesions, and no evidence of cellulitis. MS/ Extremity: Pulses equal, no cyanosis. Neurovascular intact. Right above-knee amputation Neuro: Awake and alert, GCS 15, oriented to person, place, time, and situation. Cranial nerves II-XII grossly intact. Motor strength 5/5 in all extremities. Sensory grossly intact. Psych: Awake, alert, with orientation to person, place and time. Behavior, mood, and affect are within normal limits Vital Signs: 05:08 BP 91 / 51; Pulse 71; Resp 18; Temp 97.5; Pulse Ox 95% on R/A; Weight 81.65 kg; Pain vc1 0/10; 06:00 BP 99 / 55; Pulse 65; Resp 17; Pulse Ox 100% on 2 lpm NC; jj7 07:29 BP 103 / 52; Pulse 65; Resp 17; Temp 98; Pulse Ox 100% on 3 lpm NC; Weight 83.91 kg; ap3 Height 5 ft. 8 in. ; Pain 0/10; 07:29 Body Mass Index 28.13 (83.91 kg, 172.72 cm) ap3 05:08 Pain Scale: Adult vc1 07:29 Pain Scale: Adult ap3 Micah Coma Score: 06:51 Eye Response: spontaneous(4). Motor Response: obeys commands(6). Verbal Response: sp4 oriented(5). Total: 15. Procedures: 06:49 Central Line: the site was prepped with in sterile fashion, Chlorhexidine prep, a sp4 triple lumen catheter was inserted, in the left internal jugular vein, in 1 attempts. placement was verified, by CXR, by blood return, Ultrasound-guided central line, the site was dressed with 4X4s, Tegaderm, using sterile technique, the patient tolerated the procedure, well, Central line placed secondary to exhausted vascular access,m ultrasound guidance utilized. MDM: 05:03 Patient medically screened. sp4 06:52 HEART Score: History: Moderately Suspicious (1), ECG: Non specific repolarization sp4 disturbance / LBTB / PM (1), Age: > or = 65 years (2), Risk Factors: > or = 3 Risk factors for atherosclerotic disease (2), Troponin: > or = 3 x Normal Limit (2), Total Score = 8. The patient was not given aspirin in the Emergency Department. Administered by EMS. Data reviewed: vital signs, nurses notes, EMS record, old medical records, lab test result(s), EKG, radiologic studies, plain films. 07:24 Differential diagnosis: acute pericarditis, anxiety, chest wall pain, cholecystitis, sp4 Cholelithiasis costochondritis. ED course: PROCEDURE:XR CHEST 1 VIEW HISTORY:CHEST PAIN COMPARISON: 06/24/2023 FINDINGS: The heart appears enlarged. A left-sided pacemaker device is seen to be in place.. There is mild vascular congestion. Probable bilateral pleural effusions. No alveolar consolidation or pneumothorax. There are no acute bony or soft tissue abnormalities. IMPRESSION: Cardiomegaly with mild vascular congestion and probable bilateral pleural effusions. . 07/22 05:02 Order name: Basic Metabolic Panel; Complete Time: 06:35 sp4 07/22 05:02 Order name: CBC with Diff; Complete Time: 07:06 sp4 07/22 05:02 Order name: LFT's; Complete Time: 06:35 sp4 07/22 05:02 Order name: Magnesium; Complete Time: 06:35 sp4 07/22 05:02 Order name: NT PRO-BNP; Complete Time: 06:35 sp4 07/22 05:02 Order name: PT-INR; Complete Time: 06:35 sp4 07/22 05:02 Order name: Troponin HS; Complete Time: 06:35 sp4 07/22 05:03 Order name: Phosphorus; Complete Time: 06:35 sp4 07/22 06:52 Order name: CBC Smear Scan; Complete Time: 07:06 EDKS 07/22 05:02 Order name: XRAY Chest (1 view) sp4 07/22 06:35 Order name: Chest Single View XRAY sp4 07/22 05:02 Order name: EKG; Complete Time: 05:03 sp4 07/22 05:02 Order name: Cardiac monitoring; Complete Time: 05:05 sp4 07/22 05:02 Order name: EKG - Nurse/Tech; Complete Time: 05:05 sp4 07/22 05:02 Order name: IV Saline Lock; Complete Time: 06:44 sp4 07/22 05:02 Order name: Labs collected and sent; Complete Time: 05:25 sp4 07/22 05:02 Order name: O2 Per Protocol; Complete Time: 05:25 sp4 07/22 05:02 Order name: O2 Sat Monitoring; Complete Time: 05:25 sp4 Administered Medications: 07:07 Drug: Zolpidem PO 10 mg PO once Route: PO; jj7 08:10 Follow up: Response: No adverse reaction ap3 07:07 Drug: Albumin IVPB 25 grams 100 ml IVPB once; (Note: Albumin 25% concentration) Volume: jj7 100 ml; Route: IVPB; Site: left subclavian; 08:10 Follow up: IV Status: Completed infusion; IV Intake: 100ml ap3 Disposition Summary: 07/23/23 06:37 Hospitalization Ordered Notes: Hospitalization Status: Inpatient Admission sp4 Provider: Paolo Minaya [facility] sp[facility] Condition: Stable sp4 Problem: new sp4 Symptoms: have improved sp4 Bed/Room Type: Standard sp4 Room Assignment: 225(07/23/23 07:06) bd Diagnosis - NSTEMI sp4 Forms: - Medication Reconciliation Form sp4 - SBAR form sp4 - Leadership Thank You Letter sp4 Signatures: Dispatcher [employer] EDElis Rodríguez Vanessa RN RN vc1 Dominique Gibson RN RN jj7 Davi Gil MD MD sp4 Margarita Laura RN ap3 Corrections: (The following items were deleted from the chart) 05:03 05:03 BASIC METABOLIC PANEL+C.LAB.BRZ ordered. EDMS EDMS 05:03 05:03 CBC+H.LAB.BRZ ordered. EDMS EDMS 05:03 05:03 HEPATIC FUNCTION+C.LAB.BRZ ordered. EDMS EDMS 05:03 05:03 MAGNESIUM+C.LAB.BRZ ordered. EDMS EDMS 05:03 05:03 PROBNP+C.LAB.BRZ ordered. EDMS EDMS 05:03 05:03 PROTIME (+INR)+COAG.LAB.BRZ ordered. EDMS EDMS 05:03 05:03 Troponin High Sensitivity+C.LAB.BRZ ordered. EDMS EDMS 07:06 06:37 sp4 bd
[2023-07-23] MEDS ORDERED: MORPHINE 2 MG/ML SYR IV PRN (06:41)
[2023-07-23] MEDS ORDERED: ZOLPIDEM TARTRATE 10 MG TABLET ONE (06:50)
[2023-07-23] MEDS ORDERED: ALBUMIN HUMAN 25% 100 ML IV ONE (06:50)
[2023-07-23 06:52] LABS: Anisocytosis 2+; Blood Morphology Comment NOTED (NOT SEEN); Macrocytosis 1+; Microcytosis 1+; Platelet Estimate ADEQ; White Blood Cell Scan OK (OK)
[2023-07-23] MEDS ORDERED: ONDANSETRON 4 MG/2 ML VIAL IV PRN (08:20)
--- NOTE | 2023-07-23 08:24 | RAD REPORT ---
EXAM DESCRIPTION: DIANAElizaminerva Single View07/23/2023 6:49 am CLINICAL HISTORY: Device placement/central venous catheter placement IMPRESSION: Central venous catheter with its tip in the superior vena cava No pneumothorax
[2023-07-23] MEDS ORDERED: EPOETIN ALFA 10,000 UNIT/ML VIAL IV SCH (09:45)
[2023-07-23 09:55] VITALS: BMI 28.1
--- NOTE | 2023-07-23 10:50 | RAD REPORT ---
EXAM DESCRIPTION: RAD - Chest Single View - 07/23/2023 5:36 am CLINICAL HISTORY: HEST PAIN COMPARISON: 06/24/2023 FINDINGS: The heart appears enlarged. A left-sided pacemaker device is seen to be in place.. There i s mild vascular congestion. Probable bilateral pleural effusions. No alveolar consolidation or pneumo thorax. There are no acute bony or soft tissue abnormalities. IMPRESSION: Cardiomegaly with mild vascular congestion and probable bilateral pleural effusions. Electronically signed by: Andrew Box MD 07/23/2023 07:19 AM CDT RP Due to temporary technical issues with the PACS/Fluency reporting system, reports are being signed by the in house radiologist without review as a courtesy to ensure prompt reporting. The interpreting r adiologist is fully responsible for the content of the report.
[2023-07-23] MEDS: FUROSEMIDE 40 MG/4 ML VIAL IV ONE ×3 (11:24→18:41)
[2023-07-23] MEDS: HEPARIN 5000 UNIT/ML 1 ML VIAL SQ SCH (11:25)
[2023-07-23] MEDS: ASPIRIN 325 MG TAB PO SCH (11:26)
[2023-07-23] MEDS: CLOPIDOGREL 75 MG TABLET PO SCH (11:26)
[2023-07-23] MEDS: ACETAMINOPHEN 500 MG TAB PO PRN ×2 (12:53→15:36)
--- NOTE | 2023-07-23 14:02 | CON ---
Date of Consultation: 07/23/2023 Reason For Consultation: Elevated BUN and creatinine, end-stage renal disease, hemodialysis. History Of Present Illness: This is a pleasant 77-year-old gentleman, well known to me from dialysis with significant past medical history of end-stage renal disease, on dialysis, at [facility], hypertension, hyperlipidemia, PAD, status post right above-knee amputation, knee infect ion, hyperlipidemia, and GERD, the patient was in his regular state of health, came to the hospital w ith chest pain. No nausea. No vomiting. Started yesterday, patient had dialysis yesterday and even tful, had low blood pressure during the dialysis. Past Medical History: Includes: 1.Hypertension. 2.Hyperlipidemia. 3.CAD. 4.End-stage renal disease. 5.PAD. 6.Knee infection, status post right above-knee amputation. 7.GERD. Past Surgical History: 1.Right above-knee amputation. 2.PermCath placement. Family History: Positive for diabetes, hypertension, CAD. Social History: Denied smoking. Denied drinking. Denied drugs abuse. Review of Systems: Head and Neck: No red eye. No ear pain. GI: No nausea. No vomiting. : No polyuria. No dysuria. No hematuria. SUPERVISOR FILTRATION: Not applicable. Respiratory: No shortness of breath. No cough. Cardiovascular: Has chest pain. Endocrine: No polydipsia. Skin: No rash. Neuro: Has neuropathy. Musculoskeletal: No joint pain. Home Medications: Include Ambien, Dialyvite, trazodone, Brilinta, Flomax, Zoloft, losartan, gabapent in, carvedilol, atorvastatin, aspirin. Current Medications: Include Xanax, Plavix, Zofran. Allergies: TO IODINE AND SHELLFISH WITH PENICILLIN. Physical Examination: Vital Signs: When I saw the patient, blood pressure 100/52, pulse of 68. Chest: Clear to auscultation. Heart: S1, S2. Systolic murmur. Abdomen: Soft, nontender. Extremity: No edema. Right above-knee amputation. Neurologic: Alert. No focality. Laboratory Data: WBC 6.4, hemoglobin 8.6, sodium 131, potassium 4, bicarb 27, BUN 22, creatinine 3.5 , GFR 17, calcium 8.3, phosphorus 3.6, magnesium 2.1. Chest x-ray, cardiomegaly. Assessment And Plan: 1.End-stage renal disease, normal volume. I am going to go ahead and arrange for dialysis tomorrow. We will dialyze the patient on sodium module to avoid low blood pressure. 2.Hypertension, currently blood pressure on the lower side. We will hold all blood pressure medicat ions. 3.Hyponatremia, will be corrected with the dialysis. 4.Chest pain, as by Primary. Follow up Cardiology. 5.Coronary artery disease, stable. 6.Anemia of chronic kidney disease. Resume EMMY. Time spent examining the patient [id number], reviewing data, lab and radiology, placing order, disc ussing the case with the patient, discussing the case with the steam service inspector including hospitalist and nursing staff more than 75 minutes . BRAD Voice ID: [id number] Report ID: [id number]
--- NOTE | 2023-07-23 15:06 | EKG ---
Test Date: 2023-07-23 Test Time: 05:03:17 Sales Engineering Manager: RV MEASUREMENT RESULTS: Intervals: Rate: 71 KS: 172 QRSD: 190 QT: 540 QTc: 586 [place]: P: 34 KS: 172 QRS: -79 T: 103 INTERPRETIVE STATEMENTS: Normal sinus rhythm Left axis deviation Nonspecific intraventricular block Inferior infarct, age undetermined Abnormal ECG Compared to ECG 06/24/2023 15:37:17 Left-axis deviation now present Myocardial infarct finding now present Ventricular-paced complex(es) or rhythm no longer present Atrial-sensed ventricular-paced complex(es) or rhythm no longer present Electronically Signed On 07-23-23 15:04:54 CDT by Palomo Momin
[2023-07-23] MEDS ORDERED: IPRATROPIUM BROM 0.5MG/2.5ML NEB PRN (18:36)
[2023-07-23] MEDS ORDERED: DIPHENHYDRAMINE 25 MG TAB/CAP PO PRN (18:36)
[2023-07-23] MEDS ORDERED: ALBUTEROL 2.5 MG/3 ML NEB SOL NEB PRN (18:36)
[2023-07-23] MEDS: LORAZEPAM 0.5 MG TABLET PO ONE (18:40)
[2023-07-23] MEDS ORDERED: FLUTICASONE 50MCG NASAL SPRAY NAS PRN (19:00)
--- NOTE | 2023-07-23 20:03 | RAD REPORT ---
EXAM DESCRIPTION: RADChest Single View07/23/2023 6:33 pm CLINICAL HISTORY: short of breath COMPARISON: Chest Single View dated 07/23/2023; Chest Single View dated 07/23/2023; Chest Single View dated 06/24/2023; Chest Single View dated 06/24/2023; Head C Spine Cap Wo Con dated 06/24/2023 TECHNIQUE: Portable AP view of the chest. FINDINGS: Right chest wall pacer/ AICD in place, partially obscuring findings at the right lung base . The lungs show stable subpulmonic effusion and hazy right basilar airspace opacification. Blunting of the left costophrenic angle is also stable, may suggest a small effusion. No pneumothorax. Stable cardiomegaly. Mediastinal contours are unremarkable. IMPRESSION: Stable findings, as above.
[2023-07-23] MEDS: METHYLPREDNISOLONE 125 MG INJ IV ONE (20:06)
[2023-07-23] MEDS: GABAPENTIN 300 MG CAP PO SCH (20:07)
[2023-07-23] MEDS: TAMSULOSIN 0.4 MG SR CAP PO SCH (20:07)
[2023-07-23] MEDS: TRAZODONE 150 MG TAB PO SCH (20:07)
[2023-07-23] MEDS: ZOLPIDEM TARTRATE 10 MG TABLET PO PRN (20:16)
--- NOTE | 2023-07-23 20:41 | CON ---
Date of Consultation: 07/23/2023 Reason For Consultation: Chest pain. History Of Present Illness: A 77-year-old male, history of congestive heart failure, end-stage renal disease, on dialysis, hypertension, dyslipidemia, presented to the emergency room with chest pain, l eft sided, radiates to the neck and left upper extremity along with shortness of breath and orthopnea , lower extremity edema. No nausea, vomiting, diarrhea. No dysuria, polyuria, or diaphoresis. At t he present time, he is chest pain free. Past Medical History: End-stage renal disease, on hemodialysis, coronary artery disease, status post multiple PCIs in the past, dyslipidemia, hypertension, acid reflux, anxiety, peripheral vascular dis ease, status post right above knee amputation. Past Surgical History: Right above-knee amputation, multiple cardiac stents placement. Medications: Refer reconciliation sheet for detailed list. Allergies: IODINE AND PENICILLIN. Family History: No premature coronary artery disease or cancer. Social History: Does not smoke or drink. Does not use any drugs. Review of Systems: All systems reviewed are negative except those mentioned in HPI. Physical Examination: Vital Signs: Reviewed. Head and Neck: Pupils are equal, reactive to light. Intact eye movements. No JVD. No cervical lym phadenopathy. Neck: Supple. Thyroid is not enlarged. Lungs: Clear to auscultation bilaterally. No rhonchi, rales, or crackles. No accessory muscle use. Heart: Regular rate and rhythm. No extra sounds. Abdomen: Soft, nontender. Bowel sounds positive. No organomegaly. No masses or hernia. No rigidi ty or rebound. Extremities: No clubbing, cyanosis. Intact pulses. Edema on the left lower extremity and status po st above knee amputation on the right. Neurologic: Alert, awake, oriented x3. No acute focal deficits appreciated. Investigations: Troponin 214 and then 244. BUN 22, creatinine 3.5. NT-proBNP is 60,000. Hemoglobi n is 8.6. Assessment/recommendation: 1.Ykc-KB-[id number] myocardial infarction. Start him on IV heparin drip. Continue aspirin and Plavi x. Keep n.p.o. past midnight and plan for coronary angiogram tomorrow. He is not having any chest p ain now. If he starts having chest pain, recommend that he use nitroglycerin and morphine sulfate fo r pain control. 2.Anemia. Repeat CBC tomorrow to assure stability and he will need workup on this matter in the beltran r future. 3.End-stage renal disease, on hemodialysis. He is fluid overloaded slightly. Consult Nephrology fo r inhouse dialysis. 4.Congestive heart failure, mild exacerbation. Consult Nephrology for dialysis. 5.Congestive heart failure with fluid retention. Plan as above and obtain an echo on him. 6.Dyslipidemia. Recommend Lipitor 40 mg q.h.s. 7.Keep him n.p.o. past midnight and plan for coronary angiogram tomorrow. SR/MODL Voice ID: [id number] Report ID: [id number]
[2023-07-23] MEDS ORDERED: ALPRAZOLAM 0.25 MG TABLET PO PRN (21:00)
[2023-07-24] MEDS: METHYLPREDNISOLONE 40 MG INJ IV SCH (00:04)
[2023-07-24] MEDS: TICAGRELOR 90 MG TABLET PO ONE (05:16)
[2023-07-24] MEDS: ASPIRIN EC 81 MG TAB PO ONE (05:16)
[2023-07-24] MEDS: TICAGRELOR 90 MG TABLET PO SCH (05:26)
[2023-07-24] MEDS: ASPIRIN EC 81 MG TAB PO SCH (05:26)
[2023-07-24 05:28] LABS: Anion Gap 10.9 mEq/L (5.0-15.0); Potassium 4.9 mEq/L (3.5-5.1)
[2023-07-24 05:29] LABS: Albumin 3.1 g/dL (3.4-5.0); Albumin/Globulin Ratio 0.9 (1.1-1.8); Bilirubin Total 0.4 mg/dL (0.2-1.0); Globulin 3.5 g/dL (2.3-3.5); Magnesium 2.9; Protein, Total 6.6 g/dL (6.4-8.2)
[2023-07-24] MEDS: LORAZEPAM 0.5 MG TABLET PO ONE ×2 (05:32→13:44)
[2023-07-24] MEDS ORDERED: HEPA 1000U/500MLS 2,000 UNIT/1,000 ML BAG IV ONE (06:47)
[2023-07-24] MEDS ORDERED: LIDOCAINE 1% 20 ML MDV ONE (06:47)
[2023-07-24] MEDS ORDERED: MIDAZOLAM HCL 2 MG/2 ML INJ ONE (06:48)
[2023-07-24] MEDS ORDERED: HEPARIN 5000 UNIT/ML 1 ML VIAL ONE (06:48)
[2023-07-24] MEDS ORDERED: FENTANYL CITR 100 MCG/2 ML ONE (06:48)
[2023-07-24] MEDS ORDERED: ASPIRIN 325 MG TAB ONE (06:49)
[2023-07-24] MEDS ORDERED: DIPHENHYDRAMINE 50 MG/ML VIAL ONE (06:49)
[2023-07-24] MEDS ORDERED: METHYLPREDNISOLONE 125 MG INJ ONE (06:49)
[2023-07-24] MEDS ORDERED: HEPARIN 10,000 UNIT/10 ML VIAL IV ONE (06:49)
[2023-07-24] MEDS ORDERED: ATROPINE SULF 1 MG/10 ML SYR IV ONE (06:51)
[2023-07-24] MEDS: LOSARTAN POTASSIUM 50 MG TABLET PO SCH (07:59)
[2023-07-24] MEDS: SERTRALINE HCL 50 MG TAB PO SCH (08:01)
[2023-07-24] MEDS ORDERED: Phenylephrine HCl 10 MG/ML 1 ML VIAL ONE (08:11)
[2023-07-24] MEDS ORDERED: HOME MED 1 EA UNK (Losartan Potassium [Losartan Potassium] 25 MG Tablet) PO SCH (09:00)
--- NOTE | 2023-07-24 09:16 | P.PN ---
Subjective Date of Service: 07/24/23 Chief Complaint: Chest pain Subjective: Improving Admitted with chest pain, 2 out of 10, elevated troponin, cardiology consulted, N.p.o. for left heart cath today - Physical Exam General: Alert, In no apparent distress, Oriented x3 HEENT: Atraumatic, Normocephalic Neck: JVD not distended Respiratory: Normal air movement, Diminished Cardiovascular: Normal pulses, Regular rate/rhythm Capillary refill: <2 Seconds Gastrointestinal: Normal bowel sounds, Soft and benign Musculoskeletal: No clubbing, No swelling Integumentary: No breakdown, No significant lesion Neurological: Normal speech, Normal strength at 5/5 x4 extr Review of Systems Per HPI Physical Examination - Vital Signs Temperature: 97.0 F Blood Pressure: 109/56 Pulse: 71 Respirations: 20 Pulse Ox (%): 100 Assessment And Plan - Plan Assessment plan NSTEMI Chest pain rule out PR Cardiology consult, trend troponins, telemetry, Aspirin, Plavix, antilipid, Lasix, presents acute onset chest pain on awakening 2 hours prior to arrival. He reports chest pain is 2 out of 10, substernal, nonradiating, he reports PCI 1 year ago, no reported diaphoresis, shortness of breath, dizziness, edema. EKG sinus rhythm 71 nonspecific ventricular ventricular block left inferior infarct age undetermined, abnormal EKG, Troponin 214, BNP 95050, CXR IMPRESSION: Central venous catheter with its tip in the superior vena cava No pneumothorax To start on heparin drip, nitro, morphine Heart cath scheduled for 07/23 End-stage renal disease on hemodialysis Nephrology consult anxiety CHF depression, GERD hypertension high cholesterol macular degeneration Resume appropriate home meds Full code DVT heparin Diet n.p.o. until cardiology sees patient Disposition, home independent prior Discharge Plan: Home Critical Care: No Time Spent Managing PTS Care (In Minutes): 35
[2023-07-24] MEDS: NITROGLYCERIN 1 GM PKT TD SCH (09:30)
--- NOTE | 2023-07-24 10:36 | P.PN ---
Subjective Date of Service: 07/24/23 Chief Complaint: Chest pain Subjective: No new changes, No C/O voiced, Tolerating diet, Ambulating, Improving Review of Systems 10-point ROS is otherwise unremarkable Physical Examination - Vital Signs Temperature: 97.0 F Blood Pressure: 125/75 Pulse: 78 Respirations: 98 Pulse Ox (%): 100 - Physical Exam General: Alert, In no apparent distress HEENT: Atraumatic, PERRLA, EOMI Neck: Supple, JVD not distended Respiratory: Clear to auscultation bilaterally, Normal air movement Cardiovascular: Regular rate/rhythm, Normal S1 S2 Gastrointestinal: Normal bowel sounds, No tenderness Musculoskeletal: No tenderness Integumentary: No rashes Neurological: Normal speech, Normal tone, Normal affect Lymphatics: No axilla or inguinal lymphadenopathy - Studies Medications List Reviewed: Yes Assessment And Plan - Current Problems (Diagnosis) (1) NSTEMI (non-ST elevated myocardial infarction) Current Visit: Yes Status: Acute Plan: Patient had a coronary angigram done today that shown patent LM stent but significant OM2 s/p intervention with Synergy KIN ASA 81 mg daily for life. Brilinta 90 mg po BID for 12 months (prefer 36 months) Lipitor 40 mg daily (2) Chronic diastolic heart failure Current Visit: Yes Status: Acute Plan: Patient LVEDP is 22 mmHg, mild elevated would recommend extra dialysis session today prior to discharge. continue Losartan 50 mg daily (3) Hypertension Current Visit: No Status: Chronic Plan: as above. Qualifiers: Hypertension type: primary hypertension Qualified Code(s): I10 - Essential (primary) hypertension
[2023-07-24] MEDS: ALBUMIN HUMAN 25% 100 ML IV ONE (16:00)
[2023-07-24] MEDS: NITROGLYCERIN 1 GM PKT TD ONE (16:20)
[2023-07-24] MEDS: LORAZEPAM 0.5 MG TABLET PO PRN (16:21)
[2023-07-24] MEDS: EPOETIN ALFA-EPBX 10,000 UNIT/ML VIAL IV SCH (17:45)
[2023-07-24] MEDS: FENTANYL CITR 100 MCG/2 ML IV PRN (18:28)
--- NOTE | 2023-07-24 19:56 | OP ---
Date of Procedure: 07/24/2023 Surgeon: Davin Good Procedures Performed: 1.Left heart catheterization. 2.Selective coronary angiogram. 3.PCI of OM2 with Synergy 2.5 x 20 mm drug-eluting stent. Indication For Procedure: [id number]-[id number] [place]. Sedation: 40 minutes with 1 of Versed and 25 of fentanyl. The patient also has an allergy, so he wa s premedicated with Benadryl 50 and Solu-Medrol 125. Access: Right radial, closed by TR band. Complications: None. Estimated Blood Loss: Less than 50 cc. Description Of Procedure: After risks, benefits, and alternatives were explained to the patient, the patient agreed to proceed with the procedure and signed informed consent. The patient was brought [facility] to the laborer hide house, prepped and draped in sterile fashion. A time-out was performed. Sedation was administered. Right radial access was obtained using ultrasound-guided micropuncture technique. A 5 -[place] 4 catheter was advanced over the J-wire to the LV cavity. LVEDP was obtained. Pullbac k did not show any gradient. Same catheter was used for selective coronary angiogram of the left and right coronary systems. That was later exchanged for an EBU 3.0 mm guide. Heparin was given. ACT was therapeutic. Runthrough wire was advanced until pre-dilated the lesions with NC 2.5 mm balloon. Next, Synergy 2.5 x 20 mm drug-eluting stent was placed across the lesion, that was postdilated with an NC 2.75 mm balloon. Final angiogram shows SAM-3 flow. Wire was removed. Guide was removed ove r a J-wire. Sheath was removed and access was closed with a TR band. Hemostasis was achieved. The patient was moved back to recovery in stable condition. Findings: 1.Left main, ostial stent overlapped with the proximal stent patent. Stent is significantly protrud ing into the aorta. 2.LAD, proximal 20% to 30% disease, then mild luminal irregularities. 3.Left circ, mild luminal irregularities. It gives an OM1 that is small, then gives an OM2, and got a proximal 80% disease, status post PCI with Synergy 2.5 x 20 mm drug-eluting stent that is overlapp ed with the mid short stent, then distal mild LI. 4.Left PDA, left PLB, mild LI. 5.RCA, proximal to mid stent patent, stent distally occluded. Assessment And Plan: 1.Significant OM2 disease, status post PCI with Synergy 2.5 x 20 mm drug-eluting stent overlapped wi th an old stent. 2.Patent left main stent, although it is significant protruding into the aorta. 3.Distal occluded RCA. Plan: 1.Continue aspirin 81 mg daily for life. 2.Continue Brilinta 90 mg p.o. b.i.d. for at least 36 months. 3.Continue aggressive medical treatment for CAD. MARLA/J LUIS Voice ID: [id number] Report ID: [id number]
--- NOTE | 2023-07-25 08:15 | P.DS ---
Admission Date: 07/23/23 Discharge Date: 07/25/23 Disposition: ROUTINE DISCHARGE Discharge Condition: FAIR Reason for Admission: Chest pain Brief History of Present Illness: 77 yrs old Male with past medical history of anxiety, CHF, depression, dialysis, end-stage renal disease, GERD, hypertension, high cholesterol, macular degeneration presents acute onset chest pain on awakening 2 hours prior to arrival. He reports chest pain is 2 out of 10, substernal, nonradiating, he reports PCI 1 year ago, no reported diaphoresis, shortness of breath, dizziness, edema. Plan to admit for NSTEMI, chest pain rule out [place] to observation with cardiology to consult, EKG sinus rhythm 71 nonspecific ventricular ventricular block left inferior infarct age undetermined, abnormal EKG, Troponin 214, BNP 60136, CXR IMPRESSION: Central venous catheter with its tip in the superior vena cava No pneumothorax - Physical Exam General: Alert, In no apparent distress, Oriented x3 HEENT: Atraumatic, Normocephalic Neck: JVD not distended Respiratory: Normal air movement, Diminished Cardiovascular: Normal pulses, Regular rate/rhythm Capillary refill: <2 Seconds Gastrointestinal: Normal bowel sounds, Soft and benign Musculoskeletal: No clubbing, No swelling Integumentary: No breakdown, No significant lesion Neurological: Normal speech, Normal strength at 5/5 x4 extr Hospital Course: 77 yrs old Male with past medical history of anxiety, CHF, depression, dialysis, end-stage renal disease, GERD, hypertension, high cholesterol, macular degeneration presents acute onset chest pain on awakening 2 hours prior to arrival. He was evaluated by cardiology, status post heart cath, PCI placed, will discharge home on aspirin, Brilinta, medical management for CAD Assessment NSTEMI, status post PCI, will discharge home on 81 mg aspirin, Brilinta 90 mg p.o. twice daily for 36 months, aggressive medical management for [id number] with cardiology after discharge Significant CAD, patient will need to follow-up with cardiology after discharge End-stage renal disease on hemodialysis, nephrology following Dr Good 07/23 PCI Findings: 1. Left main, ostial stent overlapped with the proximal stent patent. Stent is significantly protruding into the aorta. 2. LAD, proximal 20% to 30% disease, then mild luminal irregularities 3. Left circ, mild luminal irregularities. It gives an OM1 that is small, then gives an OM2, and got a proximal 80% disease, status post PCI with Synergy 2.5 x 20 mm drug-eluting stent that is overlapped with the mid short stent, then distal mild LI. 4. Left PDA, left PLB, mild LI. 5. RCA, proximal to mid stent patent, stent distally occluded. Assessment And Plan: 1. Significant OM2 disease, status post PCI with Synergy 2.5 x 20 mm drug- eluting stent overlapped with an old stent. 2. Patent left main stent, although it is significant protruding into the aorta. 3. Distal occluded RCA. Cardiology plan: 1. Continue aspirin 81 mg daily for life. 2. Continue Brilinta 90 mg p.o. b.i.d. for at least 36 months. 3. Continue aggressive medical treatment for CAD. Lipitor 40 mg daily Continue losartan 50 mg daily Continue home medicines as previously prescribed GOAL: Clear understanding of disease process INSTRUCTIONS: Physician Discharge Instructions: -Follow-up with PCP in 1 to 2 weeks -Please call Dr. Minaya at [phone] if any questions regarding hospital stay -Please call nursing station at [phone] if any nursing or medication questions -Return to the emergency room if symptoms worsen Diet: ADA, low sodium Activity: Fall precautions Vital Signs/Physical Exam: Temp Pulse Resp BP Pulse Ox 97.1 F 73 18 114/58 L 100 07/25/23 04:00 07/25/23 04:00 07/25/23 04:00 07/25/23 06:28 07/25/23 04:00 Laboratory Data at Discharge: WBC 6.40 thou/uL (4.3-10.9) 07/23/23 05:13 Hgb 8.6 g/dL (13.6-17.9) L 07/23/23 05:13 Hct 25.9 % (39.6-49.0) L 07/23/23 05:13 Plt Count 320 thou/uL (152-406) 07/23/23 05:13 PT 13.5 SECONDS (9.5-12.5) H 07/23/23 05:13 INR 1.23 07/23/23 05:13 Sodium 132 mEq/L (136-145) L 07/24/23 03:56 Potassium 4.9 mEq/L (3.5-5.1) D 07/24/23 03:56 BUN 40 mg/dL (7-18) H 07/24/23 03:56 Creatinine 4.49 mg/dL (0.70-1.30) H 07/24/23 03:56 Glucose 129 mg/dL (74-106) H 07/24/23 03:56 Phosphorus 3.6 mg/dL (2.5-4.9) 07/23/23 05:13 Magnesium 2.9 07/24/23 03:56 Total Bilirubin 0.4 mg/dL (0.2-1.0) 07/24/23 03:56 AST 7 U/L (15-37) L 07/24/23 03:56 ALT 10 U/L (16-61) L 07/24/23 03:56 Alkaline Phosphatase 58 U/L (45-117) 07/24/23 03:56 Home Medications: Aspirin [Aspirin EC 81 MG] 81 mg PO DAILY 01/10/17 Zolpidem Tartrate [Ambien*] 10 mg PO BEDTIME PRN PRN 01/10/17 Losartan Potassium 50 tab PO DAILY 08/14/22 Sertraline [Zoloft*] 50 mg PO DAILY 09/11/22 Fluticasone [Flonase 50MCG Nasal [place]*] 2 spray JIM PRN 04/29/23 Gabapentin 300 mg PO BEDTIME 04/29/23 Tamsulosin [Flomax*] 0.4 mg PO BEDTIME 04/29/23 Trazodone [Desyrel*] 150 mg PO BEDTIME 04/29/23 Ticagrelor [Brilinta*] 90 mg PO DAILY 07/23/23 Atorvastatin Calcium [Lipitor] 80 mg PO BEDTIME 30 Days #30 tab 07/25/23 Ticagrelor [Brilinta*] 90 mg PO DAILY 30 Days #60 tab 07/25/23 Trazodone HCl 150 mg PO BEDTIME 30 Days #30 tab 07/25/23 New Medications: Ticagrelor [Brilinta*] 90 mg PO DAILY 30 Days #60 tab Atorvastatin Calcium [Lipitor] 80 mg PO BEDTIME 30 Days #30 tab Trazodone HCl 150 mg PO BEDTIME 30 Days #30 tab Physician Discharge Instructions: 77 yrs old Male with past medical history of anxiety, CHF, depression, dialysis, end-stage renal disease, GERD, hypertension, high cholesterol, macular degeneration presents acute onset chest pain on awakening 2 hours prior to arrival. He was evaluated by cardiology, status post heart cath, PCI placed, will discharge home on aspirin, Brilinta, medical management for CAD Assessment NSTEMI, status post PCI, will discharge home on 81 mg aspirin, Brilinta 90 mg p.o. twice daily for 36 months, aggressive medical management for FBT-[id number]-il with cardiology after discharge Significant CAD, patient will need to follow-up with cardiology after discharge End-stage renal disease on hemodialysis, nephrology following Dr Good 07/23 PCI Findings: 1. Left main, ostial stent overlapped with the proximal stent patent. Stent is significantly protruding into the aorta. 2. LAD, proximal 20% to 30% disease, then mild luminal irregularities 3. Left circ, mild luminal irregularities. It gives an OM1 that is small, then gives an OM2, and got a proximal 80% disease, status post PCI with Synergy 2.5 x 20 mm drug-eluting stent that is overlapped with the mid short stent, then distal mild LI. 4. Left PDA, left PLB, mild LI. 5. RCA, proximal to mid stent patent, stent distally occluded. Assessment And Plan: 1. Significant OM2 disease, status post PCI with Synergy 2.5 x 20 mm drug-elut ing stent overlapped with an old stent. 2. Patent left main stent, although it is significant protruding into the aorta. 3. Distal occluded RCA. Cardiology plan: 1. Continue aspirin 81 mg daily for life. 2. Continue Brilinta 90 mg p.o. b.i.d. for at least 36 months. 3. Continue aggressive medical treatment for CAD. Lipitor 40 mg daily Continue losartan 50 mg daily Continue home medicines as previously prescribed GOAL: Clear understanding of disease process INSTRUCTIONS: Physician Discharge Instructions: -Follow-up with PCP in 1 to 2 weeks -Please call Dr. Minaya at [phone] if any questions regarding hospital stay -Please call nursing station at [phone] if any nursing or medication questions -Return to the emergency room if symptoms worsen Diet: ADA, low sodium Activity: Fall precautions Diet: AHA Activity: Fall precautions Followup: Nohelia Carrington MD [ACTIVE - CAN ADMIT] - OOT,OOT [Primary Care Provider] - Time spent managing pt's care (in minutes): 55
--- NOTE | 2023-07-25 11:46 | P.PN ---
Subjective Date of Service: 07/25/23 Chief Complaint: Chest pain Subjective: No new changes, No C/O voiced, Tolerating diet, Ambulating, Improving Review of Systems 10-point ROS is otherwise unremarkable Physical Examination - Vital Signs Temperature: 97.1 F Blood Pressure: 99/53 Pulse: 74 Respirations: 18 Pulse Ox (%): 100 - Physical Exam General: Alert, In no apparent distress HEENT: Atraumatic, PERRLA, EOMI Neck: Supple, JVD not distended Respiratory: Clear to auscultation bilaterally, Normal air movement Cardiovascular: Regular rate/rhythm, Normal S1 S2 Gastrointestinal: Normal bowel sounds, No tenderness Musculoskeletal: No tenderness Integumentary: No rashes Neurological: Normal speech, Normal tone, Normal affect Lymphatics: No axilla or inguinal lymphadenopathy - Studies Medications List Reviewed: Yes Assessment And Plan - Current Problems (Diagnosis) (1) NSTEMI (non-ST elevated myocardial infarction) Current Visit: Yes Status: Acute Plan: Patient had a coronary angigram on 07/24/2023 that shown patent LM stent but significant OM2 s/p intervention with Synergy KIN ASA 81 mg daily for life. Brilinta 90 mg po BID for 12 months (prefer 36 months) Lipitor 40 mg daily also please discharge patient on PRN SL NTG (2) Chronic diastolic heart failure Current Visit: Yes Status: Acute Plan: Patient LVEDP is 22 mmHg, mild elevated, Got an extra dialysis session. lower Losartan to 25 mg daily (3) Hypertension Current Visit: No Status: Chronic Plan: as above. Qualifiers: Hypertension type: primary hypertension Qualified Code(s): I10 - Essential (primary) hypertension
[2023-07-25 12:04] VITALS: BP 106/44; TEMP 98.1
[2023-07-25 12:41] VITALS: O2SAT 97
--- NOTE | 2023-07-25 21:41 | PN ---
Date of Progress Note: 07/25/2023 Chief Complaint: End-stage renal disease, on hemodialysis. History Of Present Illness: The patient is a 77-year-old man with end-stage renal disease, congestiv e heart failure, peripheral vascular disease, hypertension, hyperlipidemia, status post right above-t he-knee amputation, knee infection, GERD. He was admitted to the hospital when he developed chest pa in. He underwent cardiac catheterization. Review of Systems: Denies chest pain, palpitation. Physical Examination: Lungs: Clear to auscultation bilaterally. Heart: S1, S2. Abdomen: Soft, benign. Extremities: Edema present in both legs. Impression And Plan: 1.End-stage renal disease. Continue dialysis. The patient is undergoing dialysis twice a week on M and Saturday. Monitor electrolytes closely. 2.Congestive heart failure with diastolic dysfunction, fluid overload. The patient had dialysis don e with ultrafiltration. Continue low-sodium diet and p.o. fluid restriction. 3.Chest pain, coronary artery disease. Cardiology is following. The patient had percutaneous trans luminal coronary angioplasty and stent placement. 4.Renal osteodystrophy. Continue renal diet and binders. EB/MODL Voice ID: [id number] Report ID: [id number]
== END 2023-07-25 12:31 | disposition home or self-care (01) | DRG 321 ==
LOC: ER 04:59 → ERHOLD 06:35 → 2ND 07:18 → OBSVTOIN 07-25 09:06
PROVIDERS: ADMIT Hospitalist; ATTEND Hospitalist
PROC: 5A1D70Z Performance of Urinary Filtration, Intermittent, Less than 6 Hours Per Day (ICD-10-PCS; 2023-07-23)
PROC: 02HV33Z Insertion of Infusion Device into Superior Vena Cava, Percutaneous Approach (ICD-10-PCS; 2023-07-23)
PROC: 027034Z Dilation of Coronary Artery, One Artery with Drug-eluting Intraluminal Device, Percutaneous Approach (ICD-10-PCS; principal; 2023-07-24)
PROC: 4A023N7 Measurement of Cardiac Sampling and Pressure, Left Heart, Percutaneous Approach (ICD-10-PCS; 2023-07-24)
PROC: B2111ZZ Fluoroscopy of Multiple Coronary Arteries using Low Osmolar Contrast (ICD-10-PCS; 2023-07-24)
DX: I21.4 Non-ST elevation (NSTEMI) myocardial infarction (principal); I50.31 Acute diastolic (congestive) heart failure; N18.6 End stage renal disease; E87.1 Hypo-osmolality and hyponatremia; I13.2 Hypertensive heart and chronic kidney disease with heart failure and with stage 5 chronic kidney disease, or end stage renal disease; D63.1 Anemia in chronic kidney disease; F32.A Depression, unspecified; F41.9 Anxiety disorder, unspecified; H35.30 Unspecified macular degeneration; E78.00 Pure hypercholesterolemia, unspecified; I73.9 Peripheral vascular disease, unspecified; N25.0 Renal osteodystrophy; K21.9 Gastro-esophageal reflux disease without esophagitis; I25.10 Atherosclerotic heart disease of native coronary artery without angina pectoris; Z99.2 Dependence on renal dialysis; Z88.0 Allergy status to penicillin; Z91.013 Allergy to seafood; Z91.041 Radiographic dye allergy status; Z91.158 Patient's noncompliance with renal dialysis for other reason; Z79.82 Long term (current) use of aspirin; Z79.02 Long term (current) use of antithrombotics/antiplatelets; Z79.899 Other long term (current) drug therapy; Z89.611 Acquired absence of right leg above knee
CPT/HCPCS: 36415; 71045; 76937; 80048; 80053; 80076; 83735; 83880; 84100; 84484; 85025; 85347; 85610; 90935; 93005; 93458; 96365; 99152; 99153; 99285; C1725; C1893; C9600; G0378; J0461; J1200; J1644; J1940; J2001; J2250; J2371; J2919; J2920; J3010; P9047; Q4081; Q5106; Q9967

== ENCOUNTER 2023-07-29 01:50 | Inpatient (IN) | payer OTHER, BC ==
[2023-07-29] MEDS ORDERED: LORazepam 2 MG/ML VIAL ONE (02:06)
[2023-07-29 02:21] LABS: PT Prothrombin Time 14.2 SECONDS (9.5-12.5); Protime INR 1.3
[2023-07-29 02:23] LABS: Absolute Basophils 0.2 K/uL (0-0.5); Absolute Eosinophils 0.2 K/uL (0-0.5); Absolute Lymphocytes (CBC) 0.6 K/uL (0.7-4.9); Absolute Monocytes 0.6 K/uL (0.1-1.3); Absolute Neutrophil 6.5 K/uL (1.8-8.0); Basophils % 1.9 % (0-1.3); Eosinophils % 2.7 % (0-4.4); Hematocrit 24.1 % (39.6-49.0); Hemoglobin 7.6 g/dL (13.6-17.9); Lymphocytes % 7.2 % (15.3-44.8); MCH 28.3 pg (27.0-35.0); MCHC 31.7 g/dL (32.0-36.0); MCV 89.1 fL (80-100); MPV 7.1 fL (7.6-11.3); Monocytes % 7.5 % (3.3-12.3); Neutrophils % 80.7 % (41.7-73.7); Platelets 277 thou/uL (152-406); Red Cell Distribution Width 26.5 % (12.1-15.2)
[2023-07-29 03:11] LABS: ALT/SGPT < 14 U/L (16-61); AST/SGOT 11 U/L (15-37); Albumin 3.5 g/dL (3.4-5.0); Albumin/Globulin Ratio 1.1 (1.1-1.8); Alkaline Phosphatase 50 U/L (45-117); Anion Gap 13.1 mEq/L (5.0-15.0); BUN Blood Urea Nitrogen 45 mg/dL (7-18); Bicarbonate 24 mEq/L (21-32); Bilirubin Direct 0.3 mg/dL (0-0.2); Bilirubin Indirect, Calculated 0.4 mg/dL (0.2-0.8); Bilirubin Total 0.7 mg/dL (0.2-1.0); Globulin 3.3 g/dL (2.3-3.5); Glomerular Filtration Rate 11 ml/min (=/>90); Glucose Level 99 mg/dL (74-106); Magnesium 2.6 mg/dL (1.6-2.4); Potassium 4.1 mEq/L (3.5-5.1); Protein, Total 6.8 g/dL (6.4-8.2); Sodium Level 137 mEq/L (136-145)
[2023-07-29] MEDS ORDERED: FUROSEMIDE 100 MG/10 ML VIAL IV ONE (03:41)
--- NOTE | 2023-07-29 03:44 | ER ---
Nurse's Notes [facility] Name: Amando Grossman Age: 77 yrs Sex: Male : 1945 Arrival Date: 07/29/2023 Time: 01:50 Bed 14 Private MD: Diagnosis: Chronic combined systolic (congestive) and diastolic (congestive) heart failure;Anemia in chronic kidney disease;Dyspnea;Dependence on renal dialysis;End stage renal disease-ON HD SATURDAY AND SATURDAY;Non ST elevation [place];Presence of cardiac pacemaker Presentation: 07/28 01:57 Chief complaint: Patient states: I have been short of breath since 1999 EMS states: pt bm8 called us for shortness of breath. pt recently discharged from hospital and similar symptoms started this evening around 1999. Coronavirus screen: At this time, the client does not indicate any symptoms associated with coronavirus-19. Ebola Screen: Patient negative for fever greater than or equal to 101.5 degrees Fahrenheit, and additional compatible Ebola Virus Disease symptoms Patient denies exposure to infectious person. Patient denies travel to an Ebola-affected area in the 21 days before illness onset. No symptoms or risks identified at this time. Initial Sepsis Screen: Does the patient meet any 2 criteria? No. Patient's initial sepsis screen is negative. Does the patient have a suspected source of infection? No. Patient's initial sepsis screen is negative. Risk Assessment: Do you want to hurt yourself or someone else? Patient reports no desire to harm self or others. Onset of symptoms was July 28, 2023 at 20:00. 01:57 Method Of Arrival: EMS: [facility] bm8 01:57 Acuity: KELLY 3 bm8 Triage Assessment: 01:59 General: Appears in no apparent distress. uncomfortable, Behavior is calm, cooperative, bm8 appropriate for age. Pain: Complains of pain in chest Pain does not radiate. Pain currently is 4 out of 10 on a pain scale. Quality of pain is described as squeezing. EENT: No deficits noted. No signs and/or symptoms were reported regarding the EENT system. Neuro: No deficits noted. Level of Consciousness is awake, alert, obeys commands, Oriented to person, place, time, situation, Appropriate for age. Cardiovascular: Heart tones S1 S2 present Capillary refill < 3 seconds Patient's skin is warm and dry. Rhythm is ventricular pacer. Respiratory: Reports shortness of breath at rest Airway is patent Trachea midline Respiratory effort is even, unlabored, Respiratory pattern is regular, symmetrical, Breath sounds are clear bilaterally. Onset: The symptoms/episode began/occurred suddenly, the patient has mild shortness of breath. GI: No signs and/or symptoms were reported involving the gastrointestinal system. : No signs and/or symptoms were reported regarding the genitourinary system. Derm: No signs and/or symptoms reported regarding the dermatologic system. Musculoskeletal: No signs and/or symptoms reported regarding the musculoskeletal system. Historical: - Allergies: 01:59 Iodine; topical is ok; bm8 01:59 PENICILLINS; bm8 01:59 Shellfish Containing Products; bm8 01:59 STATINS HMG COA REDUCTASE INHIBITORS; bm8 - Home Meds: :59 Brilinta 60 mg Oral tablet 1 tab [Active]; bm8 - PMHx: 01:59 Anxiety; CHF; Depression; Dialysis <M and F; DM; GERD; High Cholesterol; Hypertension; bm8 macular degeneration; Urinary Urgency; - PSHx: 01:59 Right above the knee amputation.; bm8 - Immunization history:: Adult Immunizations up to date. - Infectious Disease History:: Denies. - Social history:: Smoking status: unknown. Screenin:52 [facility] ED Fall Risk Assessment (Adult) History of falling in the last 3 months, lc8 including since admission No falls in past 3 months (0 pts) Confusion or Disorientation No (0 pts) Intoxicated or Sedated No (0 pts) Impaired Gait Yes (1 pt) Mobility Assist Device Used Yes (1 pt) Altered Elimination No (0 pt) Score/Fall Risk Level 0 - 2 = Low Risk Oriented to surroundings, Maintained a safe environment, Hourly rounding (assess needs \T\ fall precautionary measures) done. 01:52 Abuse screen: Denies threats or abuse. Denies injuries from another. Nutritional lc8 screening: No deficits noted. Tuberculosis screening: No symptoms or risk factors identified. Assessment: 02:00 General: Appears uncomfortable, Behavior is calm, cooperative. lc8 02:00 Neuro: Level of Consciousness is awake, alert, obeys commands, Oriented to person, lc8 place, time, situation. Respiratory: Reports shortness of breath Airway is patent Respiratory effort is labored, Respiratory pattern is tachypnea. GI: No signs and/or symptoms were reported involving the gastrointestinal system. 02:00 Cardiovascular: Capillary refill < 3 seconds. lc8 02:00 : No deficits noted. : Denies. EENT: No deficits noted. Denies. lc8 Vital Signs: 01:57 BP 131 / 78; Pulse 85; Resp 28; Temp 98.6; Pulse Ox 100% on 2 lpm NC; Weight 83.91 kg; bm8 Height 5 ft. 8 in. ; Pain 3/10; 02:00 BP 120 / 69; Pulse 76; Resp 19; Pulse Ox 99% on 2 lpm NC; lc8 03:00 BP 140 / 84; Pulse 80; Pulse Ox 99% on R/A; lc8 05:00 BP 128 / 71; Pulse 78; Resp 19; Pulse Ox 99% on 2 lpm NC; lc8 01:57 Body Mass Index 28.13 (83.91 kg, 172.72 cm) bm8 01:57 Pain Scale: Adult [facility] ED Course: 01:52 Patient arrived in ED. jj6 01:55 Corbin Ernst MD is Attending Physician. [facility] 01:59 Triage completed. bm8 01:59 Arm band placed on left wrist. Patient placed in an exam room, on a stretcher, on bm8 oxygen, on cafeteria monitor, on pulse oximetry. EKG completed in triage. Results shown to MD. 01:59 EKG done, by ED staff, reviewed by Corbin Ernst MD. ty 02:00 Patient has correct armband on for positive identification. Bed in low position. Call 8 light in reach. Side rails up X 1. 02:00 Provided Education on: course of ed stay. lc8 02:06 Inserted saline lock: 22 gauge in right antecubital area, using aseptic technique. ty Blood collected. 02:10 Basic Metabolic Panel Sent. ty 02:10 CBC with Diff Sent. ty 02:10 LFT's Sent. ty 02:10 Magnesium Sent. ty 02:10 NT PRO-BNP Sent. ty 02:10 PT-INR Sent. ty 02:10 Troponin HS Sent. ty 02:10 Initial lab(s) drawn, by mt, sent to lab. ty 02:11 Ulises Rivera, RN is Primary Nurse. lc8 03:07 XRAY Chest (1 view) In Process Unspecified. EDMS 03:07 Type And Screen Sent. lc8 03:42 Mandeep Azevedo MD is Hospitalizing Provider. [facility] 06:00 No provider procedures requiring assistance completed. lc8 06:00 Patient admitted, IV remains in place. intact, No redness/swelling at site. lc8 Administered Medications: 02:11 Drug: Ativan IVP 0.5 mg IVP once Route: IVP; Site: right antecubital; lc8 02:30 Follow up: Response: No adverse reaction; Anxiety decreased lc8 03:48 Drug: Furosemide IVP 100 mg IVP once; give over 2 minutes Route: IVP; Site: right lc8 antecubital; 04:00 Follow up: Response: No adverse reaction lc8 Medication: 06:00 VIS not applicable for this client. lc8 Outcome: 03:43 Decision to Hospitalize by Provider. [facility] 06:00 Admitted to Med/surg accompanied by tech, via stretcher, room 206, 8 06:00 Condition: stable 06:00 Instructed on the need for admit, Demonstrated understanding of 06:12 Patient left the ED. lc8 Signatures: Dispatcher [employer] EDMD Corbin Ernst MD MD cha Jeffries, Jennifer jj6 Yandell, Tylor ty McDonald, Brad, RN RN bm8 Ulises Rivera, ADRIEN RN lc8 Corrections: (The following items were deleted from the chart) 02:10 02:10 Inserted saline lock: 22 gauge in right antecubital area, using aseptic ty technique. Blood collected. ty 05:24 02:00 BP 131 / 78; Pulse 77bpm; Resp 19bpm; Pulse Ox 99% 2 lpm Nasal Cannula; lc8 lc8
--- NOTE | 2023-07-29 03:44 | EDPHYS ---
Physician Documentation [facility] Name: Amando Grossman Age: 77 yrs Sex: Male : 1945 Arrival Date: 07/29/2023 Time: 01:50 Bed 14 Private MD: ED Physician Corbin Ernst HPI: 07/28 01:59 This 77 yrs old Male presents to ER via Unassigned with complaints of oneil Shortness Of Breath. 01:59 The patient has shortness of breath at rest, with light activity. Onset: The oneil symptoms/episode began/occurred 2 day(s) ago. Duration: The symptoms are continuous, and are steadily getting worse. The patient's shortness of breath is aggravated by nothing. Associated signs and symptoms: Pertinent positives: non-productive cough. Severity of symptoms: At their worst the symptoms were moderate in the emergency department the symptoms are unchanged. The patient has experienced similar episodes in the past, multiple times. Historical: - Allergies: 01:59 Iodine; topical is ok; bm8 01:59 PENICILLINS; bm8 01:59 Shellfish Containing Products; bm8 01:59 STATINS HMG COA REDUCTASE INHIBITORS; bm8 - Home Meds: 01:59 Brilinta 60 mg Oral tablet 1 tab [Active]; bm8 - PMHx: 01:59 Anxiety; CHF; Depression; Dialysis <M and F; DM; GERD; High Cholesterol; Hypertension; bm8 macular degeneration; Urinary Urgency; - PSHx: 01:59 Right above the knee amputation.; bm8 - Immunization history:: Adult Immunizations up to date. - Infectious Disease History:: Denies. - Social history:: Smoking status: unknown. ROS: 02:01 Constitutional: Negative for fever, chills, and weight loss, Eyes: Negative for injury, oneil pain, redness, and discharge, ENT: Negative for injury, pain, and discharge, Neck: Negative for injury, pain, and swelling, Abdomen/GI: Negative for abdominal pain, nausea, vomiting, diarrhea, and constipation, Back: Negative for injury and pain, : Negative for injury, bleeding, discharge, and swelling, MS/Extremity: Negative for injury and deformity, Skin: Negative for injury, rash, and discoloration, Neuro: Negative for headache, weakness, numbness, tingling, and seizure, Psych: Negative for depression, anxiety, suicide ideation, homicidal ideation, and hallucinations, Allergy/Immunology: Negative for hives, rash, and allergies, Endocrine: Negative for neck swelling, polydipsia, polyuria, polyphagia, and marked weight changes, Hematologic/Lymphatic: Negative for swollen nodes, abnormal bleeding, and unusual bruising, 02:01 Cardiovascular: Positive for orthopnea, 02:01 Respiratory: Positive for cough, shortness of breath, at rest. 02:01 MS/extremity: Positive for decreased range of motion, swelling, of the left leg, Exam: 02:01 Constitutional: This is a well developed, well nourished patient who is awake, alert, oneil and in no acute distress. Head/Face: Normocephalic, atraumatic. Eyes: Pupils equal round and reactive to light, extra-ocular motions intact. Lids and lashes normal. Conjunctiva and sclera are non-icteric and not injected. Cornea within normal limits. Periorbital areas with no swelling, redness, or edema. ENT: Nares patent. No nasal discharge, no septal abnormalities noted. Tympanic membranes are normal and external auditory canals are clear. Oropharynx with no redness, swelling, or masses, exudates, or evidence of obstruction, uvula midline. Mucous membranes moist. Neck: Trachea midline, no thyromegaly or masses palpated, and no cervical lymphadenopathy. Supple, full range of motion without nuchal rigidity, or vertebral point tenderness. No Meningismus. Chest/axilla: Normal chest wall appearance and motion. Nontender with no deformity. No lesions are appreciated. Cardiovascular: Regular rate and rhythm with a normal S1 and S2. No gallops, murmurs, or rubs. Normal PMI, no JVD. No pulse deficits. Abdomen/GI: Soft, non-tender, with normal bowel sounds. No distension or tympany. No guarding or rebound. No evidence of tenderness throughout. Back: No spinal tenderness. No costovertebral tenderness. Full range of motion. Male : Normal genitalia with no discharge or lesions. Skin: Warm, dry with normal turgor. Normal color with no rashes, no lesions, and no evidence of cellulitis. MS/ Extremity: Pulses equal, no cyanosis. Neurovascular intact. Full, normal range of motion. Neuro: Awake and alert, GCS 15, oriented to person, place, time, and situation. Cranial nerves II-XII grossly intact. Motor strength 5/5 in all extremities. Sensory grossly intact. Cerebellar exam normal. Normal gait. Psych: Awake, alert, with orientation to person, place and time. Behavior, mood, and affect are within normal limits. 02:01 Respiratory: the patient does not display signs of respiratory distress, Respirations: labored breathing, that is mild, Breath sounds: decreased breath sounds, that are mild, are scattered, Respiratory rate: 22 02:28 ECG was reviewed by the Attending Physician. [facility] Vital Signs: 01:57 BP 131 / 78; Pulse 85; Resp 28; Temp 98.6; Pulse Ox 100% on 2 lpm NC; Weight 83.91 kg; bm8 Height 5 ft. 8 in. ; Pain 3/10; 02:00 BP 120 / 69; Pulse 76; Resp 19; Pulse Ox 99% on 2 lpm NC; lc8 03:00 BP 140 / 84; Pulse 80; Pulse Ox 99% on R/A; lc8 05:00 BP 128 / 71; Pulse 78; Resp 19; Pulse Ox 99% on 2 lpm NC; lc8 01:57 Body Mass Index 28.13 (83.91 kg, 172.72 cm) bm8 01:57 Pain Scale: Adult bm8 MDM: 01:55 Patient medically screened. oneil 02:04 Differential diagnosis: Anemia Anxiety Reaction asthma, Bronchitis CHF exacerbation, oneil Chronic Obstructive Pulmonary Disease Myocardial Infarction pneumonia, Pneumothorax pulmonary edema, reactive airway disease, Sepsis Unstable Angina. Antibiotic administration: Not indicated. Immunization status: Pneumococcal vaccine: within last 5 years. Influenza vaccine: within last 5 years. Data reviewed: vital signs, nurses notes, EMS record, lab test result(s), EKG, radiologic studies, plain films. Consideration of Admission/Observation Patient was admitted/placed on observation. Escalation of care including admission/observation considered. I considered the following discharge prescriptions or medication management in the emergency department Medications were administered in the Emergency Department. See MAR. Independent interpretation of the following test(s) in the Emergency Department EKG: See my EKG interpretation above. Test considered but Not performed: Ultrasound no 2 d echo. Care significantly affected by the following chronic conditions: Hypertension, Congestive Heart Failure, Obesity, depression, anxiety, high chlesterol, esrd on hd Saturday and saturday. 07/28 01:59 Order name: Basic Metabolic Panel; Complete Time: 03:41 [facility] [place] 07/28 01:59 Order name: CBC with Diff [facility] 07/28 01:59 Order name: LFT's; Complete Time: 03:41 [facility] 07/28 01:59 Order name: Magnesium; Complete Time: 03:41 [facility] [place] 07/28 01:59 Order name: NT PRO-BNP; Complete Time: 03:41 [facility] [place] 07/28 01:59 Order name: PT-INR; Complete Time: 02:45 [facility] [place] 07/28 01:59 Order name: Troponin HS; Complete Time: 03:41 [facility] [place] 07/28 02:42 Order name: CBC Smear Scan [facility] 07/28 02:49 Order name: Type And Screen [facility] 07/28 02:54 Order name: Packed RBC Leukored [facility] 07/28 04:50 Order name: Urinalysis w/ reflexes [facility] 07/28 01:59 Order name: XRAY Chest (1 view) [facility] 07/28 01:59 Order name: EKG; Complete Time: 02:00 [facility] 07/28 01:59 Order name: Cardiac monitoring; Complete Time: 02:10 [facility] 07/28 01:59 Order name: EKG - Nurse/Tech; Complete Time: 02:10 [facility] 07/28 01:59 Order name: IV Saline Lock; Complete Time: 02:10 [facility] 07/28 01:59 Order name: Labs collected and sent; Complete Time: 02:10 [facility] 07/28 01:59 Order name: O2 Per Protocol; Complete Time: 02:01 [facility] 07/28 01:59 Order name: O2 Sat Monitoring; Complete Time: 02:01 [facility] EC:28 Rate is 86 beats/min. Rhythm is regular. QRS [place] is Normal. MT interval is normal. QRS oneil interval is normal. QT interval is normal. No Q waves. T waves are Normal. No ST changes noted. Clinical impression: Abnormal EKG without significant change and No evidence of ischemia. Interpreted by me. Reviewed by me. Administered Medications: 02:11 Drug: Ativan IVP 0.5 mg IVP once Route: IVP; Site: right antecubital; lc8 02:30 Follow up: Response: No adverse reaction; Anxiety decreased lc8 03:48 Drug: Furosemide IVP 100 mg IVP once; give over 2 minutes Route: IVP; Site: right lc8 antecubital; 04:00 Follow up: Response: No adverse reaction lc8 Disposition Summary: 07/29/23 03:43 Hospitalization Ordered Notes: Hospitalization Status: Inpatient Admission oneil Provider: Mandeep Azevedo cha Location: Telemetry/MedSurg (Inpatient) oneil Condition: Fair oneil Problem: new oneil Symptoms: have improved oneil Bed/Room Type: Standard oneil Room Assignment: 203(07/29/23 05:00) [facility] Diagnosis - Chronic combined systolic (congestive) and diastolic (congestive) heart failure oneil - Anemia in chronic kidney disease oneil - Dyspnea oneil - Dependence on renal dialysis oneil - End stage renal disease - ON HD SATURDAY AND SATURDAY oneil - Non ST elevation CT oneil - Presence of cardiac pacemaker oneil Forms: - Medication Reconciliation Form oneil - SBAR form oneil - Leadership Thank You Letter oneil Signatures: Dispatcher [employer] EDCorbin Whitaker MD MD cha Forrester, Kelsey Maroul [facility] [place], RN RN bm8 Ulises Rivera RN RN lc8 Corrections: (The following items were deleted from the chart) 02:00 02:00 BASIC METABOLIC PANEL+C.LAB.BRZ ordered. EDMS EDMS 02:00 02:00 CBC+H.LAB.BRZ ordered. EDMS EDMS 02:00 02:00 HEPATIC FUNCTION+C.LAB.BRZ ordered. EDMS EDMS 02:00 02:00 MAGNESIUM+C.LAB.BRZ ordered. EDMS EDMS 02:00 02:00 PROBNP+C.LAB.BRZ ordered. EDMS EDMS 02:00 02:00 PROTIME (+INR)+COAG.LAB.BRZ ordered. EDMS EDMS 02:00 02:00 Troponin High Sensitivity+C.LAB.BRZ ordered. EDMS EDMS 02:50 02:50 TYPE AND SCREEN+BB.LAB.BRZ ordered. EDMS EDMS 05:00 03:43 oneil kmf
[2023-07-29] MEDS ORDERED: ONDANSETRON 4 MG/2 ML VIAL IV PRN (04:45)
--- NOTE | 2023-07-29 04:45 | P.HP ---
Certification for Inpatient Patient admitted to: Inpatient With expected LOS: >2 Midnights Practitioner: I am a practitioner with admitting privileges, knowledge of patient current condition, hospital course, and medical plan of care. Services: Services provided to patient in accordance with Admission requirements found in Title 42 Section 412.3 of the Code of Federal Regulations Patient History Date of Service: 07/29/23 Reason for admission: SOB History of Present Illness: 77 yrs old Male with past medical history of ESRD on dialysis Saturday and Saturday, diabetes, hypertension, hyperlipidemia, depression, anxiety, CHF, GERD, history of macular degeneration, peripheral artery disease, status post right AKA who has been recently been admitted to the hospital and underwent left heart catheterization and had stents placed Came to ER with shortness of breath. Patient denies any chest pain. No fever or chills. Denies any cough. Patient underwent an LHC on 07/24/2023 Findings: 1. Left main, ostial stent overlapped with the proximal stent patent. Stent is significantly protruding into the aorta. 2. LAD, proximal 20% to 30% disease, then mild luminal irregularities 3. Left circ, mild luminal irregularities. It gives an OM1 that is small, then gives an OM2, and got a proximal 80% disease, status post PCI with Synergy 2.5 x 20 mm drug-eluting stent that is overlapped with the mid short stent, then distal mild LI. 4. Left PDA, left PLB, mild LI. 5. RCA, proximal to mid stent patent, stent distally occluded. Assessment And Plan: 1. Significant OM2 disease, status post PCI with Synergy 2.5 x 20 mm drug- eluting stent overlapped with an old stent. 2. Patent left main stent, although it is significant protruding into the aorta. 3. Distal occluded RCA. Patient was assessed in the ER and was admitted for fluid overload with possible CHF exacerbation Allergies Iodinated Contrast Media [Iodinated Contrast- Oral and IV Dye] Allergy (Verified 11/24/21 11:44) Nausea/Vomiting/Diarrhea Penicillins Allergy (Verified 11/24/21 11:44) Hives shellfish derived Allergy (Verified 11/24/21 11:44) Nausea/Vomiting/Diarrhea Home medications list reviewed: Yes Home Medications: Aspirin [Aspirin EC 81 MG] 81 mg PO DAILY 01/10/17 Zolpidem Tartrate [Ambien*] 10 mg PO BEDTIME PRN PRN 01/10/17 Losartan Potassium 50 tab PO DAILY 08/14/22 Sertraline [Zoloft*] 50 mg PO DAILY 09/11/22 Fluticasone [Flonase 50MCG Nasal [place]*] 2 spray JIM PRN 04/29/23 Gabapentin 300 mg PO BEDTIME 04/29/23 Tamsulosin [Flomax*] 0.4 mg PO BEDTIME 04/29/23 Trazodone [Desyrel*] 150 mg PO BEDTIME 04/29/23 Ticagrelor [Brilinta*] 90 mg PO DAILY 07/23/23 Atorvastatin Calcium [Lipitor] 80 mg PO BEDTIME 30 Days #30 tab 07/25/23 Ticagrelor [Brilinta*] 90 mg PO DAILY 30 Days #60 tab 07/25/23 Trazodone HCl 150 mg PO BEDTIME 30 Days #30 tab 07/25/23 - Past Medical/Surgical History Diabetic: No Past Medical History: Reviewed- Non-Contributory -: ESRD on HD MWF -: Hyperlipidemia -: GERD -: Hypertension -: Depression/Anxiety -: Macular Degeneration Past Surgical History: Reviewed- Non-Contributory -: RT AKA -: [id number] PPM Psychosocial/ Personal History: Patient lives at home with his family. - Family History Family History: Reviewed- Non-Contributory - Family History Father -: Heart disease Mother -: Lung disease - Social History Smoking Status: Never smoker Alcohol use: No CD- Drugs: No Caffeine use: Yes Review of Systems 10-point ROS is otherwise unremarkable Physical Examination - Vital Signs Temperature: 97.2 F Blood Pressure: 132/70 Pulse: 78 Respirations: 20 Pulse Ox (%): 98 - Physical Exam General: Alert, Oriented x3, Mild distress, Obese HEENT: Atraumatic, Normocephalic Neck: Supple, 2+ carotid pulse no bruit Respiratory: Diminished, Crackles/rales Cardiovascular: Regular rate/rhythm, Normal S1 S2 Capillary refill: <2 Seconds Gastrointestinal: Soft and benign, W/out hepatosplenomegaly Musculoskeletal: No clubbing, No swelling, Other (Right AKA) Integumentary: No rashes Neurological: Normal strength at 5/5 x4 extr, Normal tone, Cranial nerves 3-12 intact, Normal reflexes 2+ Lymphatics: No axilla or inguinal lymphadenopathy - Studies Laboratory Data (last 24 hrs) 07/29/23 07/29/23 07/29/23 02:08 02:08 02:08 WBC 8.10 Hgb 7.6 L Hct 24.1 L Plt Count 277 PT 14.2 H INR 1.30 Sodium 137 Potassium 4.1 BUN 45 H Creatinine 5.04 H Glucose 99 Magnesium 2.6 H Total Bilirubin 0.7 AST 11 L ALT < 14 L Alkaline Phosphatase 50 Assessment and Plan - Problems (Diagnosis) (1) CHF exacerbation Current Visit: Yes Status: Acute Plan: Acute on chronic CHF possibly systolic/diastolic Monitor closely on telemetry Started on aggressive diuresis X-ray findings noted Oxygen supplementation Will try to wean down oxygen requirement Continue home medications Titrate as needed Will obtain an echocardiogram Cardiology consult NSTEMI possibly type II due to fluid overload Will trend cardiac enzymes Will monitor telemetry Started on aspirin and statin Patient denies any chest pain Had a recent PCI Cardiology consult ESRD on dialysis Nephrology consulted Renal parameters monitor Electrolytes monitor and replace accordingly Hypertension Antihypertensives titrated Continue home medications and titrate as needed Hyperlipidemia Continue statin Diabetes Insulin sliding scale Accu-Chek before every meal and at bedtime Anemia of chronic disease Monitor H&H closely No overt bleeding at this time H&H trends transfuse if needed GI/DVT prophylaxis Advanced directive full code Discharge Plan: Home Plan to discharge in: 48 Hours - Advance Directives Does patient have a Living Will: No Does patient have a Durable POA for Healthcare: No - Code Status/Comfort Care Code Status: Full Code Time Spent Managing Pts Care (In Minutes): 48
[2023-07-29 04:49] LABS: Anisocytosis 2+; Blood Morphology Comment NOTED (NOT SEEN); Ovalocytes 2+; Platelet Estimate ADEQ; Target Cells 1+; White Blood Cell Scan OK (OK)
[2023-07-29] MEDS: FUROSEMIDE 40 MG/4 ML VIAL IV SCH (05:35)
[2023-07-29] MEDS: ASPIRIN EC 81 MG TAB PO SCH (09:45)
[2023-07-29] MEDS: TICAGRELOR 90 MG TABLET PO SCH (09:45)
[2023-07-29] MEDS: HEPARIN 5000 UNIT/ML 1 ML VIAL SQ SCH (09:46)
[2023-07-29] MEDS: LORazepam 2 MG/ML VIAL IV STA (10:12)
--- NOTE | 2023-07-29 10:28 | P.PN ---
Date of Service: 07/29/23 Patient seen and examined. He is complaining of shortness of breath. Oxygen saturation is stable on room air. Patient feels his shortness of breath is related to anxiety. Diagnosis: Acute diastolic heart failure. End-stage renal disease on hemodialysis. Plan: Aggressive diuresis with IV Lasix Abdomen as needed for anxiety. Repeat echocardiogram. Nephrology consult for hemodialysis.
[2023-07-29 10:31] LABS: Specific Gravity 1.021 (1.005-1.030); Sqamous Epithelial <5 /HPF (None Seen); Urine Bacteria None Seen /HPF (<20); Urine Bilirubin NEGATIVE (Negative); Urine Blood Negative (Negative); Urine Clarity Clear (Clear); Urine Color Yellow (Yellow); Urine Culture Reflex Order NOT NEEDED; Urine Glucose NEGATIVE (Negative); Urine Ketones NEGATIVE (Negative); Urine Microscopic Reflex YN ORDER UMIC; Urine Nitrite NEGATIVE (Negative); Urine Protein 1+ (Negative); Urine RBC <5 /HPF (None Seen); Urine Urobilinogen Normal (Normal); Urine WBC <5 /HPF (<5); Urine pH 6.5 (5.0-7.0)
--- NOTE | 2023-07-29 11:07 | RAD REPORT ---
EXAM DESCRIPTION: XR Chest, 1 View CLINICAL HISTORY: The patient is 77 years old and is Male; COUGH TECHNIQUE: Frontal view of the chest. COMPARISON: No relevant prior studies available. FINDINGS: Lungs: Prominent interstitial markings which may indicate mild interstitial edema. Perib ronchial thickening. Hazy bibasilar opacification. Pleural space: Blunting of the costophrenic angles suggestive of bilateral pleural effusions. No pneumothorax. Heart: Unremarkable. Mediastinum: Unremarkable. Normal mediastinal contour. Bones/joints: No acute findings. Tubes, lines and devices: Right-sided pacemaker. IMPRESSION: 1. Prominent interstitial markings which may indicate mild interstitial edema. Peribro nchial thickening. 2. Hazy bibasilar opacification. 3. Blunting of the costophrenic angles suggestive of bilateral pleural effusions. Electronically signed by: Mickey Loera MD 07/29/2023 04:07 AM CDT RP 8 Due to temporary technical issues with the PACS/Fluency reporting system, reports are being signed by the in house radiologist without review as a courtesy to ensure prompt reporting. The interpreting r adiologist is fully responsible for the content of the report.
[2023-07-29] MEDS: NA CHLORIDE 0.9% 250 ML ONE (11:24)
--- NOTE | 2023-07-29 14:52 | EKG ---
Test Date: 2023-07-29 Test Time: 01:55:39 Sociology Professor: MARINE MEASUREMENT RESULTS: Intervals: Rate: 86 FL: 174 QRSD: 196 QT: 508 QTc: 607 [place]: P: 62 FL: 174 QRS: -78 T: 103 INTERPRETIVE STATEMENTS: Sinus rhythm with premature atrial complexes Txare-Rgiofptys-Pkrbg Abnormal ECG Compared to ECG 07/23/2023 05:03:17 Atrial premature complex(es) now present Ventricular preexcitation now present Left-axis deviation no longer present Myocardial infarct finding no longer present Electronically Signed On 07-29-23 14:50:42 CDT by Palomo Momin
--- NOTE | 2023-07-29 15:59 | CON ---
Date of Consultation: 07/29/2023 Reason For Consultation: Shortness of breath. History Of Present Illness: A 77-year-old male with history of end-stage renal disease, dialysis Sat, Wednesdays, and Fridays; diabetes; coronary artery disease; dyslipidemia; hypertension; recent PCI of the OM. Heart is well vascularized, otherwise, presented with shortness of breath, orthopnea, lower extremity edema, significant fluid retention is present and denies having any chest pain, and he is compliant with his dual antiplatelet therapy. Past Medical History: As outlined above in the HPI. Medications: Refer to reconciliation sheet for detailed list. Allergies: PENICILLIN, IODINE. Past Surgical History: Cardiac stent and dialysis access establishment and the right [id number] amputation and pacemaker implantation. Family History: No premature coronary artery disease or cancer. Social History: Does not smoke or drink. Does not use any drugs. Review of Systems: All systems were reviewed and they were negative except as mentioned in the HPI. Physical Examination: Vital Signs: Reviewed. Head and Neck: Pupils are equal, reactive to light. Intact eye movements. No JVD. No cervical lym phadenopathy. Neck is supple. Thyroid is not enlarged. Lungs: Clear to auscultation bilaterally. No rhonchi, wheezing, or crackles. No accessory muscle u se. Heart: Regular rate and rhythm. No extra sounds. Abdomen: Soft, nontender. Bowel sounds positive. No organomegaly. No masses or hernia. No rigidi ty or rebound. Extremities: 3 to 4+ edema bilaterally. No clubbing or cyanosis. Intact pulses. Skin: No rash. No nodule. Neurologic: Alert, awake, oriented x3. No acute focal deficits appreciated. Investigations: BUN 45, creatinine 5. NT-proBNP is 132,000, troponin 271, and hemoglobin 7.6. Assessment And Recommendations: 1.Acute on chronic diastolic heart failure exacerbation, severely fluid overloaded. Recommend dialy sis [id number] to get this amount of fluids off and monitor his status clinically. He is on Lasix and to continue if he is still making urine. 2.Coronary artery disease with recent PCI. Continue aspirin and Brilinta. 3.Elevated troponin. This is demand. No chest pain. No action is needed. 4.Dyslipidemia. Continue Lipitor 40 mg q.h.s. 5.Anemia of chronic illness. He might benefit from a transfusion 1 unit of PRBC. /J LUIS Voice ID: [id number] Report ID: [id number]
[2023-07-29] MEDS: LORAZEPAM 1 MG TABLET PO PRN (16:56)
[2023-07-29] MEDS: IPRATROPIUM BROM 0.5MG/2.5ML NEB PRN (20:19)
[2023-07-29] MEDS: ALBUTEROL 2.5 MG/3 ML NEB SOL NEB PRN (20:19)
[2023-07-29] MEDS: ATORVASTATIN 80 MG TAB PO SCH (21:06)
[2023-07-29] MEDS: SERTRALINE HCL 50 MG TAB PO SCH (21:39)
--- NOTE | 2023-07-29 23:01 | RAD REPORT ---
EXAM DESCRIPTION: RADChest Single View07/29/2023 5:07 pm CLINICAL HISTORY: Follow-up pulmonary edema COMPARISON: Chest Single View dated 07/29/2023; Chest Single View dated 07/23/2023; Chest Single View dated 07/23/2023; Chest Single View dated 07/23/2023 TECHNIQUE: Portable AP view of the chest. FINDINGS: Stable central interstitial opacities, suggesting pulmonary edema. Suspected small layerin g left pleural effusion, stable. No pneumothorax. The cardiomediastinal contours are unremarkable. Right chest wall pacer in place. IMPRESSION: Stable findings as above.
--- NOTE | 2023-07-30 02:56 | CON ---
Date of Consultation: 07/29/2023 Chief Complaint: Fluid overload, congestive heart failure, respiratory failure, hypoxemia. Subjective: The patient presented to the hospital because of generalized weakness, shortness of meme th. He was dialyzed on Saturday and he came to the hospital on July 28, complaining of shortness of breath and having panic attack. 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 The patient cindy baer was admitted to the hospital for chest pain, and he underwent left heart catheterization and had stent placed, and was discharged to home and told to follow up with Cardiology. Review of Systems: Constitutional: Denies fever, chills. Eyes: Denies vision changes. Ears, Nose, Mouth, Throat: Denies sore throat, earache. Respiratory: Shortness of breath. Denies wheezing, cough. GI: Denies nausea, vomiting. : Denies dysuria, hematuria. Musculoskeletal: Generalized weakness. All other symptoms reviewed and all are negative. Past Medical History: End-stage renal disease, on hemodialysis on Saturday and Saturday; hyperlipidemia; GERD; hypertension; depression; anxiety; macular degeneration; obesity. 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 Family History: No kidney disease. Father had heart disease. Mother, lung disease. Social History: Never smoker. Denies alcohol. Denies drugs. Physical Examination: General: The patient is awake, alert, follows commands. Eyes: Anicteric sclerae. EOMI. Ears, Nose, Mouth, Throat: Oral mucosa moist. No pallor. Neck: Supple. No bruits. Lungs: Crackles bilaterally present. Abdomen: Soft, obese, nontender. No rebound. No guarding. Extremities: Edema present. Laboratory Work: WBC 8.1, hemoglobin 7.6, platelet count 277,000. Sodium 137, potassium 4.1, BUN 45 , creatinine 5.04, glucose 99. Magnesium 2.6. ALT less than 14, AST 11, AP 15. Impression And Plan: 1.Congestive heart failure exacerbation. The patient has coronary artery disease. Recently, he und erwent angiogram and percutaneous transluminal coronary angioplasty with stent placement. He develop ed acute on chronic systolic and diastolic congestive heart failure with fluid overload. Chest x-ray showed vascular congestion. The patient has hypoxemia. Continue oxygen supplementation. Dialysis was done today with ultrafiltration. Continue dialysis with daily treatment to control fluid overloa d. 2.Non-ST elevation myocardial infarction. Continue to monitor troponin level. Further recommendati on from Cardiology. 3.Hypertension. Titrate blood pressure medication. 4.Hyperlipidemia. Continue statin. 5.Diabetes mellitus. Continue insulin sliding scale. 6.Anemia of chronic kidney disease. Monitor hemoglobin level. Continue EMMY and folic acid. Check iron status. 7.Renal osteodystrophy. Continue renal diet and binders. EB/MODL Voice ID: [id number] Report ID: [id number]
[2023-07-30 06:10] LABS: Absolute Basophils 0.1 K/uL (0-0.5); Absolute Eosinophils 0.2 K/uL (0-0.5); Absolute Lymphocytes (CBC) 0.4 K/uL (0.7-4.9); Absolute Monocytes 0.7 K/uL (0.1-1.3); Basophils % 0.6 % (0-1.3); Eosinophils % 1.9 % (0-4.4); Hematocrit 28.4 % (39.6-49.0); Hemoglobin 9.3 g/dL (13.6-17.9); MCH 29.2 pg (27.0-35.0); MCHC 32.8 g/dL (32.0-36.0); MCV 89.1 fL (80-100); MPV 7.2 fL (7.6-11.3); Monocytes % 6.9 % (3.3-12.3); Neutrophils % 86.6 % (41.7-73.7); Nucleated Red Blood Cells % 0.1 % (0-0); Platelets 235 thou/uL (152-406); RBC Red Blood Cell Count 3.19 M/uL (4.33-5.43); Red Cell Distribution Width 23.3 % (12.1-15.2)
[2023-07-30 06:16] LABS: Anion Gap 11.2 mEq/L (5.0-15.0); Magnesium 2.5 mg/dL (1.6-2.4); Phosphorus 4.8 mg/dL (2.5-4.9); Potassium 4.2 mEq/L (3.5-5.1)
--- NOTE | 2023-07-30 07:49 | P.PN ---
Date of Service: 07/30/23 Subjective: feeling a little worse overall compared to yesterday feels breathing treatments are helping. Breathing feels slightly easier reports dealing with some incontinence for months but hasn't been regularly following up with anyone Bladder scan this morning with 695 ml ROS: 10 point ROS as noted above, otherwise negative Physical Exam: GEN: Alert, oriented, NAD HEENT: Normal conjunctiva, sclera anicteric CV: Regular rate and rhythm (paced), 1-2+ bilateral lower extremity edema Pulm: Nonlabored respirations on 2L NC, diminished at bases b/l, mild crackles/rales ABD: Soft, nontender, nondistended MSK: right AKA Neuro: Normal speech, normal affect vitals reviewed Problem List: ESRD on HD - MF NSTEMI CAD s/p PCI to OM (07/24/23) Acute on chronic combined systoic/diastolic CHF Symptomatic anemia / iron deficiency anemia BPH / Urinary retention Hyperlipidemia Depression/Anxiety Hypertension hx macular degeneration hx PAD ESRD on HD - MF Reports worsening dyspnea, generalized weakness, lower extremity edema, fluid overload CXR (07/28): Pulmonary edema with suspected small layering left pleural effusion. Nephrology consulted - HD per nephrology continue IV lasix continue to monitor renal function BNP > 130k improving NSTEMI CAD s/p PCI to OM (07/24/23) 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 Reports compliance with home meds. Heart Cath OP-report (07/23): significant OM2 disease (~80%) s/p PCI overlapped with old stent. Distal occluded RCA Most recent Echo (04/30/23): 62% EF, moderate diastolic dysfunction, mild MR/TR, severe pulmonary hypertension Echo ordered to reeval EF / stenosis Troponin mildly elevated - suspect demand ischemia. Monitor on telemetry Cardiology consulted continue aspirin 81mg, brilinta continue IV lasix PRN nebs Symptomatic anemia / iron deficiency anemia hgb 7.6 on admission; repeat hgb post transfusion 9.3 (07/29) s/p 2 uPRBC (07/28) for symptomatic anemia in the context of cardiopulmonary disease iron studies consistent with iron deficiency anemia (iron 26, tsat% 8.2%) monitor H&H. Denies any bleeding. BPH / Urinary retention reports dealing with some incontinence for "months" but hasn't followed up with a doctor routinely Bladder scan with 695 ml (07/29) Discussed options of melendez vs straight cath with patient. Continue straight cath as needed for now per patient preference. Resume home flomax HLD continue home statin Depression/Anxiety continue home setraline HTN hx macular degeneration hx PAD confirm home meds, restart as appropriate VTE: heparin sq Code: Full Dispo: home, ~1-2 days Pending further HD / nephrology recs
[2023-07-30 08:53] LABS: Ferritin 490.2 ng/mL (26-388)
[2023-07-30] MEDS: FOLIC ACID 1 MG TABLET PO SCH (09:13)
[2023-07-30] MEDS: LORAZEPAM 1 MG TABLET PO ONE (09:54)
[2023-07-30] MEDS: ALBUMIN HUMAN 25% 100 ML IV ONE (14:45)
--- NOTE | 2023-07-30 19:11 | PN ---
Date of Progress Note: 07/30/2023 Subjective: Seen by bedside postdialysis. He is feeling much better. This man has been doing dialy sis twice a week and he has been hospitalized multiple times. He does not have any chest pain at the present time. His troponin was borderline elevated. He has coronary artery disease, status post re cent stent. Review of Systems: No chest pain, shortness of breath, orthopnea, cough, nausea, vomiting, diarrhea. Has lower extremit y edema still present, but with movement. Physical Examination: Vital Signs: Reviewed. Head and Neck: Pupils are equal, reactive to light. Intact eye movements. No JVD. No cervical lym phadenopathy. Neck is supple. Thyroid is not enlarged. Lungs: Decreased breathing sounds with faint crackles in the bases. No accessory muscle use or musc le retraction. Heart: Irregular. No extra sounds. Abdomen: Soft, nontender. Bowel sounds positive. No organomegaly. No masses or hernia. No rigidi ty or rebound. Extremities: No clubbing, cyanosis. Intact pulses. Skin: No rash. No nodule. Neurologic: Alert, awake, oriented x3. No acute focal deficits appreciated. Investigations: Hemoglobin 9.3, and his BUN is 30, creatinine 3.96. Troponin 271. Assessment/recommendation: 1.Acute on chronic diastolic heart failure exacerbation. His only way of fluid management is throug h dialysis. I recommend to increase his dialysis frequency to 3 times a week. We will discuss this with Nephrology for better fluid management infiltration. 2.Elevated troponin. This is demand ischemia. Has no chest pain. Recent PCI of the OM was done. Continue with aspirin and Brilinta. 3.Dyslipidemia. Continue Lipitor 40 mg q.h.s. 4.Hypertension. His blood pressure is much better now after the fluid management. Low-salt diet en couraged. SR/MODL Voice ID: [id number] Report ID: [id number]
[2023-07-30] MEDS: TAMSULOSIN 0.4 MG SR CAP PO SCH (20:28)
[2023-07-30] MEDS: ACETAMINOPHEN 325 MG TABLET PO PRN (20:28)
[2023-07-30] MEDS: MORPHINE 2 MG/ML SYR IV ONE (20:56)
[2023-07-30] MEDS: MORPHINE 4 MG/ML SYR ONE (21:00)
[2023-07-30] MEDS: MORPHINE 4 MG/ML SYR IV ONE (21:04)
[2023-07-30] MEDS: TRAZODONE 150 MG TAB PO SCH (22:17)
--- NOTE | 2023-07-30 22:28 | PN ---
Date of Progress Note: 07/30/2023 Chief Complaint: End-stage renal disease, fluid overload, congestive heart failure, respiratory fail ure with hypoxemia due to congestive heart failure exacerbation secondary to fluid overload. Subjective: The patient is admitted to the hospital because of generalized weakness, shortness of br eath. He was complaining of shortness of breath and had some panic attacks. He has history of depre ssion, anxiety, insomnia, diabetes mellitus, peripheral vascular disease, AKA secondary to chronic kn ee infection and septic joint. The patient recently was admitted to the hospital for chest pain, und erwent left heart catheterization and had a stent placed. Subsequently, he was discharged to home an d was instructed to follow up with Cardiology. He came back to the hospital emergency room because o f shortness of breath and currently he is undergoing daily dialysis for volume control and metabolic clearance. Review of Systems: Cardiorespiratory: Denies chest pain, palpitation. Shortness of breath is subsiding. Extremities: Denies pain, oozing. Physical Examination: General: The patient is not in acute distress. Eyes: Anicteric sclerae. Neck: Supple. No bruits. Lungs: Crackles bilaterally at bases. Heart: S1, S2. Abdomen: Soft. Extremities: Edema present. Impression And Plan: 1.End-stage renal disease. Continue daily dialysis for metabolic clearance and to obtain negative f luid balance. The patient has severe fluid overload. He has congestive heart failure exacerbation d ue to fluid overload. He has coronary artery disease and underwent percutaneous transluminal coronar y angioplasty and stent placement last week. He developed acute on chronic systolic and diastolic co ngestive heart failure with fluid overload. Chest x-ray showed vascular congestion. He had intersti tial pulmonary edema and he is undergoing daily dialysis with ultrafiltration to treat fluid overload and provide management for congestive heart failure. 2.Hypertension. Blood pressure control. Titrate blood pressure medication. 3.Intradialytic hypotension. The patient may need midodrine for blood pressure support. 4.Diabetes mellitus. Continue insulin sliding scale. 5.Anemia of chronic kidney disease. Monitor hemoglobin level. Continue EMMY. 6.Renal osteodystrophy. Continue renal diet and binders. EB/MODL Voice ID: [id number] Report ID: [id number]
[2023-07-31 03:56] LABS: Absolute Eosinophils 0.4 K/uL (0-0.5); Absolute Lymphocytes (CBC) 0.4 K/uL (0.7-4.9); Absolute Monocytes 0.9 K/uL (0.1-1.3); Absolute Neutrophil 6.1 K/uL (1.8-8.0); Basophils % 0.4 % (0-1.3); Eosinophils % 5.1 % (0-4.4); Hemoglobin 9.1 g/dL (13.6-17.9); Lymphocytes % 5.1 % (15.3-44.8); MCH 29.1 pg (27.0-35.0); MCHC 32.5 g/dL (32.0-36.0); MCV 89.5 fL (80-100); MPV 7.1 fL (7.6-11.3); Monocytes % 11.3 % (3.3-12.3); Neutrophils % 78.1 % (41.7-73.7); Platelets 196 thou/uL (152-406); RBC Red Blood Cell Count 3.13 M/uL (4.33-5.43)
[2023-07-31 03:59] LABS: Red Cell Distribution Width 23.1 % (12.1-15.2)
[2023-07-31 04:07] LABS: Anion Gap 9.8 mEq/L (5.0-15.0); Potassium 3.8 mEq/L (3.5-5.1)
[2023-07-31] MEDS: TRAMADOL HCL 50 MG TAB PO PRN (08:07)
--- NOTE | 2023-07-31 09:35 | P.PN ---
Date of Service: 07/31/23 Subjective: feeling breathing and lower extremity edema are improving Reports some difficulty resting overnight. Had nosebleed throughout the night. noise from rain s/p straight cath yesterday. feels bladder is starting to get full. has not voided today off oxygen this morning at rest ROS: 10 point ROS as noted above, otherwise negative Physical Exam: GEN: Alert, oriented, NAD HEENT: Normal conjunctiva, sclera anicteric CV: Regular rate and rhythm (paced), 1+ bilateral lower extremity edema Pulm: Nonlabored respirations on room air, diminished at bases b/l, mild crackles/rales bilaterally ABD: Soft, nontender, nondistended MSK: right AKA Neuro: Normal speech, normal affect vitals reviewed Problem List: ESRD on HD - MF Volume overload NSTEMI CAD s/p PCI to OM (07/24/23) Acute on chronic combined systoic/diastolic CHF Symptomatic anemia / iron deficiency anemia BPH / Urinary retention Hyperlipidemia Depression/Anxiety Hypertension hx macular degeneration hx PAD ESRD on HD - MF Volume overload Reports worsening dyspnea, generalized weakness, lower extremity edema, fluid overload CXR (07/28): Pulmonary edema with suspected small layering left pleural effusion. Nephrology consulted - HD per nephrology continue to monitor renal function Cardiology recommending to consider increasing routine dialysis to 3x/week from twice weekly repeat CXR ordered to f/u opacities IV lasix dc'd (07/30) - pt was refusing due to exacerbating his BPH symptoms NSTEMI CAD s/p PCI to OM (07/24/23) 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 Reports compliance with home meds. Heart Cath OP-report (07/23): significant OM2 disease (~80%) s/p PCI overlapped with old stent. Distal occluded RCA Most recent Echo (04/30/23): 62% EF, moderate diastolic dysfunction, mild MR/TR, severe pulmonary hypertension Troponin mildly elevated - suspect demand ischemia. Monitor on telemetry Cardiology consulted continue aspirin 81mg, brilinta IV lasix dc'd (07/30) PRN nebs Symptomatic anemia / iron deficiency anemia hgb 7.6 on admission; s/p 2 uPRBC (07/28) for symptomatic anemia in the context of cardiopulmonary disease iron studies consistent with iron deficiency anemia (iron 26, tsat% 8.2%) monitor H&H. Denies any bleeding. hgb stable last 24 hours BPH / Urinary retention reports dealing with some incontinence for "months" but hasn't followed up with a doctor routinely Bladder scan with 695 ml (07/29) Discussed options of melendez vs straight cath with patient. Continue straight cath as needed for now per patient preference. Resume home flomax Hyperlipidemia continue home statin Depression/Anxiety continue home setraline resume home ambien at bedtime Hypertension hx macular degeneration hx PAD confirm home meds, restart as appropriate Insomnia resume home ambien VTE: heparin sq Code: Full Dispo: home, ~1-2 days Pending further HD / nephrology recs
[2023-07-31] MEDS ORDERED: EPOETIN ALFA 10,000 UNIT/ML VIAL IV SCH (10:15)
--- NOTE | 2023-07-31 11:27 | RAD REPORT ---
EXAM DESCRIPTION: RAD - Chest Single View - 07/31/2023 11:18 am CLINICAL HISTORY: COPD Chest pain. COMPARISON: <Comparisons> FINDINGS: Portable technique limits examination quality. Moderate bilateral pulmonary opacities mildly worsened since comparative study. Most likely this repr esents pulmonary edema. The heart is moderately enlarged with multilead pacer device present. No disp laced fractures. IMPRESSION: Mild worsening in CHF pattern since comparative study.
--- NOTE | 2023-07-31 12:35 | PN ---
Date of Progress Note: 07/31/2023 Subjective: Patient was admitted with atypical chest pain. Patient recently admitted with chest pain, status post cardiac cath with the PTCA. The patient currently complaining from generalized body ache. The patient on multiple pain medications. Objective: Vital Signs: Blood pressure 125/60, pulse of 79, afebrile. Chest: Faint rales, bilateral base, more prominent on the left side. Heart: S1, S2. Systolic murmur. Abdomen: Soft, nontender. Extremities: No edema. Above-knee amputation. Neurologic: Alert. No focality. Laboratory Data: Hemoglobin 9.1, sodium 138, potassium 3.8, bicarb 29, BUN 22, creatinine 3.2, calcium 8.5, phosphorus 4.8, magnesium 2. BNP 132,000. Current Medications: The patient on, it includes: 1. Albumin. 2. Heparin. 3. Brilinta. 4. Lorazepam. 5. Zoloft. 6. Trazodone. 7. Folic acid. 8. Zofran. Assessment And Plan: 1. End-stage renal disease, possible overvolume. I am going to go ahead and repeat chest x-ray for better evaluation of the fluid status and depending on that, we will decide if he need extra session of dialysis and we will follow up. 2. Hypertension, controlled, optimal, off blood pressure medication. We will continue to utilize the blood pressure for more ultrafiltration. 3. Anemia of chronic kidney disease. I am going to go ahead and resume Retacrit, and we will follow up. 4. Generalized body ache. Follow up with the Primary. 5. Coronary artery disease with congestive heart failure with exacerbation. We will follow up chest x-ray today. Time spent examining the patient [id number] reviewing data lab and radiology placing orders and discussing the case with the patient discussing the case with the logistics team lead including hospitalist nursing staff hemodialysis nurse more than 55-minute DANIELLE/J LUIS Voice ID: [id number] Report ID: [id number] [email or web address]
--- NOTE | 2023-07-31 17:57 | P.PN ---
Subjective Date of Service: 07/31/23 Chief Complaint: SOB Subjective: No new changes, No C/O voiced, Tolerating diet, Ambulating, Improving Review of Systems 10-point ROS is otherwise unremarkable Physical Examination - Vital Signs Temperature: 96.7 F Blood Pressure: 135/70 Pulse: 87 Respirations: 20 Pulse Ox (%): 95 - Physical Exam General: Alert, In no apparent distress HEENT: Atraumatic, PERRLA, EOMI Neck: Supple, JVD not distended Respiratory: Clear to auscultation bilaterally, Normal air movement Cardiovascular: Regular rate/rhythm, Normal S1 S2 Gastrointestinal: Normal bowel sounds, No tenderness Musculoskeletal: No tenderness Integumentary: No rashes Neurological: Normal speech, Normal tone, Normal affect Lymphatics: No axilla or inguinal lymphadenopathy - Studies Medications List Reviewed: Yes Assessment And Plan - Current Problems (Diagnosis) (1) CHF exacerbation Current Visit: Yes Status: Acute Plan: continue volume adjustment through dialysis. Coreg 3.125 mg po BID if BP is able to tolerate it, (2) NSTEMI (non-ST elevated myocardial infarction) Current Visit: No Status: Acute Plan: demand ischemia, patient had a recent history of PCI to OM, no chest pain Continue ASA 81 mg daily Continue Brilinta 90 mg po BID (3) Hyperlipidemia Current Visit: No Status: Chronic Plan: Continue Lipitor 80 mg daily Qualifiers: Hyperlipidemia type: unspecified Qualified Code(s): E78.5 - Hyperlipidemia, unspecified
[2023-07-31] MEDS: ZOLPIDEM TARTRATE 10 MG TABLET PO PRN (20:01)
[2023-08-01 08:11] LABS: Absolute Eosinophils 0.3 K/uL (0-0.5); Absolute Lymphocytes (CBC) 0.2 K/uL (0.7-4.9); Absolute Monocytes 0.6 K/uL (0.1-1.3); Absolute Neutrophil 5.9 K/uL (1.8-8.0); Basophils % 0.6 % (0-1.3); Eosinophils % 4.1 % (0-4.4); Hematocrit 30.3 % (39.6-49.0); Hemoglobin 9.8 g/dL (13.6-17.9); MCH 29.3 pg (27.0-35.0); MCHC 32.4 g/dL (32.0-36.0); MCV 90.4 fL (80-100); Monocytes % 8.6 % (3.3-12.3); Neutrophils % 83.7 % (41.7-73.7); Nucleated Red Blood Cells % 0.1 % (0-0); Platelets 202 thou/uL (152-406); RBC Red Blood Cell Count 3.35 M/uL (4.33-5.43)
[2023-08-01 08:45] LABS: Albumin 3.6 g/dL (3.4-5.0); Anion Gap 12.6 mEq/L (5.0-15.0); Magnesium 2.3 mg/dL (1.6-2.4); Phosphorus 4.4 mg/dL (2.5-4.9); Potassium 4.6 mEq/L (3.5-5.1)
--- NOTE | 2023-08-01 09:06 | P.PN ---
Date of Service: 08/01/23 Subjective: slept better last night still feels short of breath on 2L NC this morning edema improving urinary retention back to his "usual" issues at home reports darker urine since straight cath ROS: 10 point ROS as noted above, otherwise negative Physical Exam: GEN: Alert, oriented, NAD HEENT: Normal conjunctiva, sclera anicteric CV: Regular rate and rhythm (paced), 1+ bilateral lower extremity edema Pulm: Nonlabored respirations on 2L NC, diminished at bases b/l ABD: Soft, nontender, nondistended Neuro: Normal speech, normal affect vitals reviewed Problem List: ESRD on HD - MF Volume overload NSTEMI CAD s/p PCI to OM (07/24/23) 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 Reports compliance with home meds. Heart Cath OP-report (07/23): significant OM2 disease (~80%) s/p PCI overlapped with old stent. Distal occluded RCA Most recent Echo (04/30/23): 62% EF, moderate diastolic dysfunction, mild MR/TR, severe pulmonary hypertension Troponin mildly elevated - suspect demand ischemia. Monitor on telemetry Cardiology consulted consider adding coreg 3.125 per cardio if BP allows continue aspirin 81mg, brilinta IV lasix dc'd (07/30) check room O2 sats to see if patient qualifies for home oxygen Symptomatic anemia / iron deficiency anemia hgb 7.6 on admission; s/p 2 uPRBC (07/28) for symptomatic anemia in the context of cardiopulmonary disease iron studies consistent with iron deficiency anemia (iron 26, tsat% 8.2%) monitor H&H. Denies any bleeding. hgb stable last ~48 hours BPH / Urinary retention reports dealing with some incontinence for "months" but hasn't followed up with a doctor routinely Bladder scan with 695 ml (07/29) Discussed options of melendez vs straight cath with patient. Resumed home flomax dark urine noted per patient 07/31, states since straight cath, no bright red urine, possible secondary to traumatic catheter insertion will hold heparin dvt prophylaxis, pt is on DAPT as well Hyperlipidemia continue home statin Depression/Anxiety continue home setraline resume home ambien at bedtime dc PRN ativan Hypertension hx macular degeneration hx PAD confirm home meds, restart as appropriate Insomnia resume home ambien VTE: heparin sq Code: Full Dispo: home, ~1 day HD tomorrow
[2023-08-01] MEDS: FLUTICASONE 50MCG NASAL SPRAY NAS SCH (12:18)
--- NOTE | 2023-08-01 18:23 | PN ---
Date of Progress Note: 08/01/2023 Subjective: The patient was admitted to the hospital with atypical chest pain. The patient had recently cardiac cath with PTCA. Patient is chest pain free today. Stable. Patient planned for dialysis tomorrow. Objective: Vital Signs: Blood pressure 129/70, pulse of 86, afebrile. Chest: Clear to auscultation. Heart: S1, S2. Regular. Abdomen: Soft, nontender. Extremity: Right above knee amputation. No edema. Neurologic: Alert. No focality. Laboratory Data: Hemoglobin 9.8, sodium 136, potassium 4.6, bicarb 25, BUN 34, creatinine 4.4, calcium 8.9. Current Medications: The patient on, it includes: 1. Epogen. 2. Brilinta. 3. Tylenol. 4. Zoloft. 5. Ambien. 6. Folic acid. Assessment And Plan: 1. End-stage renal disease, admitted with overvolume, currently normal volume. I am going to resume the patient on dialysis Saturday, Saturday, Saturday. We will dialyze him tomorrow. 2. Hypertension, controlled, optimal. Continue current treatment. 3. Secondary hyperparathyroidism. I am going to go ahead and follow up phosphorous level, so far, controlled. 4. Congestive heart failure with exacerbation, currently patient normal volume. We will go back to his regular schedule. We will dialyze the patient tomorrow and we will follow up. 5. Anemia of chronic kidney disease. Continue EMMY. 6. Coronary artery disease with chest pain, as by Cardiology. The patient cleared from the Renal standpoint for discharge planning. Time spent examining the patient [id number] reviewing data lab and radiology placing orders and discussing the case with the patient discussing the case with the steamer tender including hospitalist nursing staff more than 55-minute BRAD Voice ID: [id number] Report ID: [id number] SAMMY
--- NOTE | 2023-08-01 18:53 | PN ---
Date of Progress Note: 08/01/2023 Subjective: Seen by bedside. He is doing well, status post dialysis. His breathing is much better. Review of Systems: No chest pain, shortness of breath, orthopnea, or cough. No nausea, vomiting, or diarrhea. All othe r systems were reviewed, they were negative. Objective: Vital Signs: Reviewed. Head and Neck: Pupils are equal, reactive to light. Intact eye movements. No JVD. No cervical lym phadenopathy. Neck is supple. Thyroid is not enlarged. Lungs: Clear to auscultation bilaterally. No rhonchi, wheezing, or crackles. No accessory muscle u se. Heart: Regular rate and rhythm. No extra sounds. Abdomen: Soft, nontender. Bowel sounds positive. No organomegaly. No masses or hernia. No rigidi ty or rebound. Extremities: No clubbing or cyanosis. Intact pulses. Skin: No rash. No nodule. Neurologic: Alert, awake. Otherwise, no acute focal deficits appreciated. Investigations: Labs were reviewed. Assessment And Recommendations: 1.Acute on chronic diastolic heart failure exacerbation. Patient is dialyzed twice a week. Recomme nded 3 times a week dialysis to avoid further hospitalization. 2.Elevated troponin. This is demand ischemia. There is no chest pain and no further workup is need ed. 3.End-stage renal disease, on hemodialysis, recommend to change to 3 times a week. SR/MODL Voice ID: [id number] Report ID: [id number]
[2023-08-01] MEDS: ZOLPIDEM TARTRATE 10 MG TABLET PO SCH (19:28)
[2023-08-01] MEDS: GABAPENTIN 300 MG CAP PO SCH (20:20)
[2023-08-02 03:55] LABS: Albumin 3.6 g/dL (3.4-5.0); Anion Gap 10.2 mEq/L (5.0-15.0); Phosphorus 4.7 mg/dL (2.5-4.9); Potassium 4.2 mEq/L (3.5-5.1)
[2023-08-02 08:00] VITALS: BMI 31.0
--- NOTE | 2023-08-02 09:34 | P.PN ---
Date of Service: 08/02/23 Subjective: felt more short of breath overnight placed back on oxygen although spo2 remained in 90s overnight 100.2 low grade temp this morning, initially documented as 102 denies abdominal pains / nausea still dealing with urinary retention ~same as what he has been dealing with at home. better compared to when taking lasix urine remains brownish-maroon, only urinating small amount at a time 1 episode of diarrhea this morning ROS: 10 point ROS as noted above, otherwise negative Physical Exam: GEN: Alert, oriented, uncomfortable appearing, increased work of breathing HEENT: Normal conjunctiva, sclera anicteric CV: Regular rate and rhythm (paced), 1+ bilateral lower extremity edema Pulm: labored respirations on 3L NC at rest intermittently, diminished at bases b/l, with b/l crackles ABD: Soft, nontender, nondistended Neuro: Normal speech, anxious vitals reviewed Problem List: ESRD on HD - MF Volume overload Fever, unknown origin NSTEMI CAD s/p PCI to OM (07/24/23) 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 repeat CXR (07/30): mildly worsening CHF pattern Nephrology consulted - HD per nephrology - received [id number] HD Cardiology recommending to consider increasing routine dialysis to 3x/week from twice weekly IV lasix dc'd (07/30) - pt was refusing due to exacerbating his BPH symptoms/LUTS room O2 sats were checked 08/01: desat to ~87% on room air at rest. Increased to 95% after being placed back on nasal cannula Fever, unknown origin initially incorrectly documented as 102, however on further check, was actually 100.2 denies any worsening symptoms 08/01 on full review of systems Denies abdominal pains. No nausea/vomiting. 1 episode of diarrhea this morning. 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 Reports compliance with home meds. Heart Cath OP-report (07/23): significant OM2 disease (~80%) s/p PCI overlapped with old stent. Distal occluded RCA Most recent Echo (04/30/23): 62% EF, moderate diastolic dysfunction, mild MR/TR, severe pulmonary hypertension Troponin mildly elevated - suspect demand ischemia. Monitor on telemetry Cardiology consulted consider adding coreg 3.125 per cardio if BP allows continue aspirin 81mg, brilinta IV lasix dc'd (07/30) Symptomatic anemia / iron deficiency anemia hgb 7.6 on admission; s/p 2 uPRBC (07/28) for symptomatic anemia in the context of cardiopulmonary disease iron studies consistent with iron deficiency anemia (iron 26, tsat% 8.2%) monitor H&H. Denies any bleeding. hgb stable last ~48 hours BPH / Urinary retention reports dealing with some incontinence for "months" but hasn't followed up with a doctor routinely Bladder scan with 695 ml (07/29) Discussed options of melendez vs straight cath with patient. Recommended melendez due to likely continuing with retention and minimize trauma however patient declined melendez and only wanted straight cath due to past discomfort with prior melendez Resumed home flomax, will increase dose dark urine noted per patient 07/31, states since straight cath, no bright red urine, possible secondary to traumatic catheter insertion will hold heparin dvt prophylaxis, pt is on DAPT as well Hyperlipidemia continue home statin Depression/Anxiety continue home setraline resumed home ambien at bedtime Hypertension hx macular degeneration hx PAD confirm home meds, restart as appropriate Insomnia resume home ambien VTE: hold heparin sq Code: Full Dispo: home, ~2-3 days afebrile > 24 hours / home O2 setup
[2023-08-02 10:30] LABS: Absolute Lymphocytes (CBC) 0.1 K/uL (0.7-4.9); Absolute Monocytes 1.2 K/uL (0.1-1.3); Absolute Neutrophil 12.7 K/uL (1.8-8.0); Basophils % 0.2 % (0-1.3); Eosinophils % 0.3 % (0-4.4); Hematocrit 30.6 % (39.6-49.0); Hemoglobin 9.7 g/dL (13.6-17.9); Lymphocytes % 0.9 % (15.3-44.8); MCH 28.6 pg (27.0-35.0); MCHC 31.8 g/dL (32.0-36.0); MPV 7.3 fL (7.6-11.3); Monocytes % 8.3 % (3.3-12.3); Neutrophils % 90.3 % (41.7-73.7); Platelets 195 thou/uL (152-406); Red Cell Distribution Width 22.4 % (12.1-15.2)
[2023-08-02 10:56] LABS: Anisocytosis 2+; Blood Morphology Comment NOTED (NOT SEEN); Hypochromasia 2+; Platelet Estimate ADEQ; White Blood Cell Scan OK (OK)
[2023-08-02] MEDS: LORAZEPAM 1 MG TABLET PO ONE (11:19)
--- NOTE | 2023-08-02 12:54 | RAD REPORT ---
EXAM DESCRIPTION[facility] 12[facility]24 pm CLINICAL HISTORY: fever, short of breath COMPARISON: Chest Single View dated 07/31/2023; Chest Single View dated 07/29/2023; Chest Single View dated 07/29/2023; Chest Single View dated 07/23/2023 TECHNIQUE: Portable AP view of the chest. FINDINGS: Cardiomegaly, central interstitial prominence and perihilar fluffy opacities, and suggesti on of small effusions, stable. No pneumothorax. Right chest wall pacer in place. The mediastinal con tours are unremarkable. IMPRESSION: Stable findings as above, suggesting of CHF.
--- NOTE | 2023-08-02 13:11 | RAD REPORT ---
EXAM DESCRIPTION: US - Renal Ultrasound-Complete - 08/02/2023 11:34 am CLINICAL HISTORY: urinary retention, eval bladder/kidney COMPARISON: Abdomen Pelvis Wo Contrast dated 12/16/2021; Head C Spine Cap Wo Con dated 06/24/2023 TECHNIQUE: Sonographic grayscale and color flow images of the kidneys and bladder were obtained. FINDINGS: The right kidney was surgically removed. The left kidney is normal in size measuring 11.9 cm in length. Advanced hydronephrosis. Transverse di ameter of the pelvis measures 4.4 cm. Poor corticomedullary differentiation. No focal masses or echog enic calculi. The urinary bladder is without gross abnormality seen. Prevoid bladder volume 3-4.9 mL. IMPRESSION: Advanced left hydronephrosis. No echogenic calculi identified. Status post right nephrectomy. No focal bladder wall abnormality.
[2023-08-02] MEDS ORDERED: ACETAMINOPHEN 325 MG TABLET PO PRN (14:13)
[2023-08-02] MEDS: LIDOCAINE JELLY 2% 5 ML SYRINGE TOP ONE (16:31)
[2023-08-02 17:08] LABS: Urine Bilirubin NEGATIVE (Negative); Urine Blood 3+ (OVER) (Negative); Urine Clarity Extremely Turbid (Clear); Urine Color Light-Orange (Yellow); Urine Glucose NEGATIVE (Negative); Urine Ketones NEGATIVE (Negative); Urine Microscopic Reflex YN NO UMIC; Urine Nitrite NEGATIVE (Negative); Urine Protein 2+ (Negative); Urine Urobilinogen Normal (Normal); Urine pH 6.5 (5.0-7.0)
[2023-08-02 17:11] LABS: Sqamous Epithelial None Seen /HPF (None Seen); Urine Bacteria None Seen /HPF (<20); Urine Crystals Unidentified Few /HPF (None Seen); Urine Culture Reflex Order REFLEXED; Urine RBC >50 /HPF (None Seen)
[2023-08-02] MEDS: LORAZEPAM 1 MG TABLET PO PRN (17:20)
[2023-08-02] MEDS: CEFEPIME 1 GM in NA CHLORIDE 0.9% 100 ML IV SCH (17:20)
[2023-08-02] MEDS: VANCOMYCIN 2 GM in NA CHLORIDE 0.9% 500 ML IVPB ONE (18:30)
[2023-08-02] MEDS: Oxycodone HCl/Acetaminophen 5/325 MG TAB PO PRN (22:48)
[2023-08-03] MEDS: ZOLPIDEM TARTRATE 10 MG TABLET PO PRN (00:22)
--- NOTE | 2023-08-03 02:46 | PN ---
Date of Progress Note: 08/02/2023 Subjective: The patient is admitted to the hospital with atypical chest pain, congestive heart failu re, severe fluid overload, anasarca. The patient recently had cardiac catheterization with PTCA. Th e patient is undergoing dialysis with ultrafiltration. Volemia is controlled. The patient although with complaint of some lower urinary tract symptoms, he is started on antibiotic for urinary tract in fection. He has history of BPH and previously was referred to urologist. Review of Systems: Denies chest pain, palpitation. Physical Examination: Lungs: Clear to auscultation bilaterally. Heart: S1, S2. Abdomen: Obese, soft, nontender. Extremities: Right above-knee amputation and slight edema. Impression And Plan: 1.End-stage renal disease, dialysis was done today with ultrafiltration. Continue p.o. fluid restri ction, low-sodium diet. The patient will continue dialysis on Saturday, Saturday, Saturday. He receive d dialysis today. 2.Hypertension, controlled optimum. Continue current treatment. 3.Secondary hyperparathyroid. Followup calcium and phosphorus level. Adjust binders according to l ab results. 4.Congestive heart failure with exacerbation, coronary artery disease, volume overload. The patient was treated with daily dialysis, volemia and anasarca has improved. 5.Fluid overload, resolved. 6.The patient will continue p.o. fluid restriction, low-sodium diet, and he may benefit from diureti cs if he has a residual renal function and residual urine output. 7.Anemia of chronic disease. Continue EMMY. 8.Coronary artery disease with chest pain. Further recommendation from Cardiology. ANTHONY/J LUIS Voice ID: [id number] Report ID: [id number]
[2023-08-03 07:21] LABS: Absolute Basophils 0.1 K/uL (0-0.5); Absolute Lymphocytes (CBC) 0.2 K/uL (0.7-4.9); Basophils % 0.5 % (0-1.3); Eosinophils % 0.1 % (0-4.4); Hematocrit 28.6 % (39.6-49.0); Hemoglobin 9.4 g/dL (13.6-17.9); Lymphocytes % 1.5 % (15.3-44.8); MCH 29.7 pg (27.0-35.0); MPV 7.6 fL (7.6-11.3); Monocytes % 9.2 % (3.3-12.3); Neutrophils % 88.7 % (41.7-73.7); Platelets 174 thou/uL (152-406); RBC Red Blood Cell Count 3.18 M/uL (4.33-5.43); Red Cell Distribution Width 22.4 % (12.1-15.2)
[2023-08-03 07:41] LABS: AST/SGOT < 10 U/L (15-37); Albumin 3.2 g/dL (3.4-5.0); Albumin/Globulin Ratio 0.9 (1.1-1.8); Alkaline Phosphatase 48 U/L (45-117); Anion Gap 11.1 mEq/L (5.0-15.0); BUN Blood Urea Nitrogen 41 mg/dL (7-18); Bicarbonate 27 mEq/L (21-32); Bilirubin Total 0.9 mg/dL (0.2-1.0); Globulin 3.6 g/dL (2.3-3.5); Glomerular Filtration Rate 12 ml/min (=/>90); Glucose Level 104 mg/dL (74-106); Magnesium 2.6 mg/dL (1.6-2.4); Potassium 4.1 mEq/L (3.5-5.1); Protein, Total 6.8 g/dL (6.4-8.2); Sodium Level 136 mEq/L (136-145)
[2023-08-03 07:42] LABS: ALT/SGPT < 14 U/L (16-61)
--- NOTE | 2023-08-03 11:03 | P.PN ---
Date of Service: 08/03/23 Subjective: feeling slightly better today had undocumented 101 oral fever reportedly at dialysis yesterday no further fever since dialysis yesterday reports melendez is painful / sensation of having to urinate ROS: 10 point ROS as noted above, otherwise negative Physical Exam: GEN: Alert, oriented, NAD at rest HEENT: Normal conjunctiva, sclera anicteric CV: Regular rate and rhythm (paced), 1+ bilateral lower extremity edema Pulm: mild labored respirations on 2L NC at rest intermittently, diminished at bases b/l, with b/l crackles ABD: Soft, nontender, nondistended Neuro: Normal speech, anxious vitals reviewed melendez in place - yellow/light monica color with intermittent blood tinged / clot Problem List: ESRD on HD - MF Volume overload Fever, unknown origin BPH / Urinary retention NSTEMI CAD s/p PCI to OM (07/24/23) 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 repeat CXR (07/30): mildly worsening CHF pattern Nephrology consulted - HD per nephrology - received [id number] HD Cardiology recommending to consider increasing routine dialysis to 3x/week from twice weekly IV lasix dc'd (07/30) - pt was refusing due to exacerbating his BPH symptoms/LUTS room O2 sats were checked 08/01: desat to ~87% on room air at rest. Increased to 95% after being placed back on nasal cannula Fever, unknown origin; SIRS without clear infection source initially incorrectly documented as 102, however on further check, was actually 100.2 denies any worsening symptoms 08/01 on full review of systems. No nausea/vomiting. 1 episode of diarrhea this morning. Had undocumented 101 fever at dialysis yesterday (08/01) Recheck without intervention a few minutes later down to 98 reportedly. having urinary retention, however states is similar to symptoms he experienced at home prior to admission no new urinary symptoms however renal u/s noted Left sided hydronephrosis not seen on CT 1 month ago. Melendez placed 08/01 fever/leukocytosis could be secondary to urinary retention vs UTI urinary retention and recent instrumentation does place patient at risk of infection continue empiric cefepime / vanc (08/01-) SIRS (fever, leukocytosis, tachycardia). Meeting sepsis criteria although no clear source. suspicion would be urine UA at time of straight cath was unremarkable urine cx (08/01): prelim mixed abby Blood cx (08/01): Pending CXR suggested CHF. No evidence of infection/infiltrate leukocytosis improving, lactate normal BPH / Urinary retention reports dealing with some incontinence for "months" but hasn't followed up with a doctor routinely Bladder scan with 695 ml (07/29) Discussed options of melendez vs straight cath with patient. Recommended melendez due to likely continuing with retention and minimize trauma however patient declined melendez and only wanted straight cath due to past discomfort with prior melendez Resumed home flomax, will increase dose 08/02 dark urine noted per patient 07/31, states since straight cath, no bright red urine, possible secondary to traumatic catheter insertion will hold heparin dvt prophylaxis, pt is on DAPT and will need to continue DAPT with recent PCI Melendez placed 08/01 urine clearing up 08/02, occasional blood tinged/clot will recheck imaging in ~2-3 days anticipate dc home with melendez until urology follow up NSTEMI CAD s/p PCI to OM (07/24/23) 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 Reports compliance with home meds. Heart Cath OP-report (07/23): significant OM2 disease (~80%) s/p PCI overlapped with old stent. Distal occluded RCA Most recent Echo (04/30/23): 62% EF, moderate diastolic dysfunction, mild MR/TR, severe pulmonary hypertension Troponin mildly elevated - suspect demand ischemia. Monitor on telemetry Cardiology consulted consider adding coreg 3.125 per cardio if BP allows continue aspirin 81mg, brilinta IV lasix dc'd (07/30) Symptomatic anemia / iron deficiency anemia, acute on chronic hgb 7.6 on admission; s/p 2 uPRBC (07/28) for symptomatic anemia in the context of cardiopulmonary disease iron studies consistent with iron deficiency anemia (iron 26, tsat% 8.2%) monitor H&H. Denies any bleeding. hgb stable last ~48 hours Hyperlipidemia continue home statin Depression/Anxiety continue home setraline resumed home ambien at bedtime Hypertension hx macular degeneration hx PAD confirm home meds, restart as appropriate Insomnia continuie home ambien VTE: hold heparin sq Code: Full Dispo: home, ~2-3 days afebrile > 24 hours / home O2 setup urinary retention / hematuria clears
--- NOTE | 2023-08-03 12:34 | PN ---
Date of Progress Note: 08/03/2023 Subjective: The patient was admitted to the hospital with chest pain. The patient had dialysis yesterday. We managed to remove 5 L. The patient had some shortness of breath. Physical Examination: Chest: Crackles bilateral bases. Heart: S1, S2. Regular. Abdomen: Soft, nontender. Extremities: Right [id number] amputation. No edema. Neurologic: Alert, pleasantly confused. No focality. Laboratory Data: Hemoglobin 9.4. Sodium 136, potassium 4.1, bicarb 27, BUN 41, creatinine 4.8, calcium 8.7. Current Medications: Include: 1. Aspirin. 2. Cefepime. 3. Vancomycin. 4. Albuterol. 5. Flomax. 6. Epogen. 7. Atorvastatin. 8. Zoloft. 9. Gabapentin. 10. Breathing treatment. Assessment And Plan: 1. End-stage renal disease, over volume, status post challenge yesterday. We will follow up repeated chest x-ray today. 2. Hypertension, controlled, optimal. Utilize blood pressure for more ultrafiltration. 3. Fever. We will follow up culture. 4. Deconditioning. Continue PT/OT. 5. Congestive heart failure exacerbation. We will follow up repeated chest x- ray. Continue to challenge the patient. Time spent examining the patient [id number] reviewing data lab and radiology placing orders and discussing the case with the patient discussing the case with the receiving team member including hospitalist nursing staff more than 55-minute BRAD Voice ID: [id number] Report ID: [id number] SAMMY
[2023-08-03 13:12] LABS: Hepatitis B surface AG Interp. Nonreactive (Nonreactive)
[2023-08-03 13:13] LABS: HBsAG Nonreactive Report Report
--- NOTE | 2023-08-03 15:37 | RAD REPORT ---
[facility] 12[facility]47 pm CLINICAL HISTORY: COPD COMPARISON: Chest Single View dated 08/02/2023; Chest Single View dated 07/31/2023; Chest Single View dated 07/29/2023; Chest Single View dated 07/29/2023 TECHNIQUE: Portable AP view of the chest. FINDINGS: Central interstitial prominence. Moderate to large cardiomegaly. Trace bilateral pleural e ffusions. No pneumothorax or effusion. Right chest wall pacer in place. The cardiomediastinal contou rs are unremarkable. IMPRESSION: Findings suggesting pulmonary edema, could be of cardiogenic origin.
[2023-08-03] MEDS ORDERED: VANCOMYCIN 1 GM in NA CHLORIDE 0.9% 250 ML IVPB SCH (18:00)
[2023-08-03] MEDS: ZOLPIDEM TARTRATE 10 MG TABLET PO SCH (19:00)
[2023-08-03] MEDS: VANCOMYCIN 500 MG/VIAL ONE (19:37)
[2023-08-03] MEDS: NA CHLORIDE 0.9% 0 ML ONE (19:39)
[2023-08-04 07:10] LABS: Absolute Eosinophils 0.3 K/uL (0-0.5); Absolute Lymphocytes (CBC) 0.2 K/uL (0.7-4.9); Absolute Neutrophil 9.6 K/uL (1.8-8.0); Basophils % 0.4 % (0-1.3); Eosinophils % 2.8 % (0-4.4); Hematocrit 29.6 % (39.6-49.0); Hemoglobin 9.5 g/dL (13.6-17.9); Lymphocytes % 1.4 % (15.3-44.8); MCH 29.2 pg (27.0-35.0); MCHC 32.1 g/dL (32.0-36.0); MPV 7.4 fL (7.6-11.3); Monocytes % 9.1 % (3.3-12.3); Neutrophils % 86.3 % (41.7-73.7); Platelets 184 thou/uL (152-406); RBC Red Blood Cell Count 3.26 M/uL (4.33-5.43); Red Cell Distribution Width 21.5 % (12.1-15.2)
[2023-08-04 08:13] LABS: ALT/SGPT < 14 U/L (16-61); AST/SGOT 14 U/L (15-37); Albumin 3.1 g/dL (3.4-5.0); Albumin/Globulin Ratio 0.9 (1.1-1.8); Alkaline Phosphatase 62 U/L (45-117); Anion Gap 12.4 mEq/L (5.0-15.0); BUN Blood Urea Nitrogen 59 mg/dL (7-18); Bicarbonate 25 mEq/L (21-32); Bilirubin Total 0.8 mg/dL (0.2-1.0); Globulin 3.6 g/dL (2.3-3.5); Glomerular Filtration Rate 10 ml/min (=/>90); Glucose Level 87 mg/dL (74-106); Magnesium 2.4 mg/dL (1.6-2.4); Potassium 4.4 mEq/L (3.5-5.1); Protein, Total 6.7 g/dL (6.4-8.2); Sodium Level 136 mEq/L (136-145)
--- NOTE | 2023-08-04 10:07 | P.PN ---
Date of Service: 08/04/23 Subjective: feels some improvement each day denies any new / worsening problems no abdominal pains Breathing feels slightly easier today hematuria improving. intermittent afebrile ROS: 10 point ROS as noted above, otherwise negative Physical Exam: GEN: Alert, oriented, NAD at rest HEENT: Normal conjunctiva, sclera anicteric CV: Regular rate and rhythm (paced), trace bilateral lower extremity edema Pulm: mild labored respirations on 3L NC at rest intermittently, diminished at bases b/l ABD: Soft, nontender, nondistended Neuro: Normal speech, anxious vitals reviewed melendez in place - yellow/light monica color with intermittent blood tinged urine in tube; darker monica/brownish in bag Problem List: ESRD on HD - MF Volume overload Fever, unknown origin; SIRS without clear infection source BPH / Urinary retention NSTEMI CAD s/p PCI to OM (07/24/23) 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 repeat CXR (07/30): mildly worsening CHF pattern Nephrology consulted - HD per nephrology - received [id number] HD Cardiology recommending to consider increasing routine dialysis to 3x/week from twice weekly IV lasix dc'd (07/30) - pt was refusing due to exacerbating his BPH symptoms/LUTS room O2 sats were checked 08/01: desat to ~87% on room air at rest. Increased to 95% after being placed back on nasal cannula Fever, unknown origin; SIRS without clear infection source initially incorrectly documented as 102, was actually 100.2 denies any worsening symptoms 08/01 on full reiew of systems. No nausea/vomiting. 1 episode of diarrhea this morning. Had undocumented 101 fever at dialysis (08/01) Recheck without intervention a few minutes later down to 98 reportedly. having urinary retention, however states is similar to symptoms he experienced at home prior to admission no new urinary symptoms however renal u/s noted Left sided hydronephrosis not seen on CT 1 month ago. Melendez placed 08/01 fever/leukocytosis could be secondary to urinary retention vs UTI urinary retention and recent instrumentation does place patient at risk of infection continue empiric cefepime (08/01-) dc vanc SIRS (fever, leukocytosis, tachycardia). Meeting sepsis criteria although no clear source. suspicion would be urine UA at time of straight cath was unremarkable urine cx (08/01): Mixed abby. > 100k cfu/ml Blood cx (08/01): NGTD CXR suggested CHF. No evidence of infection/infiltrate leukocytosis improving, lactate normal BPH / Urinary retention reports dealing with some incontinence for "months" but hasn't followed up with a doctor routinely Bladder scan with 695 ml (07/29) Discussed options of melendez vs straight cath with patient. Recommended melendez due to likely continuing with retention and minimize trauma however patient declined melendez and only wanted straight cath due to past discomfort with prior melendez Resumed home flomax, will increase dose 08/02 dark urine noted per patient 07/31, states since straight cath, no bright red urine, possible secondary to traumatic catheter insertion will hold heparin dvt prophylaxis, pt is on DAPT and will need to continue DAPT with recent PCI Melendez placed 08/01 urine clearing up 08/02, occasional blood tinged/clot will recheck imaging in ~2-3 days anticipate dc home with melendez until urology follow up NSTEMI CAD s/p PCI to OM (07/24/23) 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 Reports compliance with home meds. Heart Cath OP-report (07/23): significant OM2 disease (~80%) s/p PCI overlapped with old stent. Distal occluded RCA Most recent Echo (04/30/23): 62% EF, moderate diastolic dysfunction, mild MR/TR, severe pulmonary hypertension Troponin mildly elevated - suspect demand ischemia. Monitor on telemetry Cardiology consulted consider adding coreg 3.125 per cardio if BP allows continue aspirin 81mg, brilinta IV lasix dc'd (07/30) Symptomatic anemia / iron deficiency anemia, acute on chronic hgb 7.6 on admission; s/p 2 uPRBC (07/28) for symptomatic anemia in the context of cardiopulmonary disease iron studies consistent with iron deficiency anemia (iron 26, tsat% 8.2%) monitor H&H. Denies any bleeding. hgb stable last ~48 hours Hyperlipidemia continue home statin Depression/Anxiety continue home setraline resumed home ambien at bedtime Hypertension hx macular degeneration hx PAD confirm home meds, restart as appropriate Insomnia continuie home ambien VTE: hold heparin sq Code: Full Dispo: home, ~ vs Sat pending home O2 setup urinary retention / hematuria improved, re-eval hydronephrosis
--- NOTE | 2023-08-04 13:13 | P.PN ---
Subjective Date of Service: 08/04/23 Chief Complaint: SOB feeling better s/p dialysis yesterday Review of Systems 10-point ROS is otherwise unremarkable Respiratory: SOB with Excertion Physical Examination - Vital Signs Temperature: 97.8 F Blood Pressure: 96/57 Pulse: 77 Respirations: 15 Pulse Ox (%): 97 - Physical Exam General: Alert, Oriented x3 HEENT: Atraumatic, PERRLA Neck: JVD not distended Respiratory: Crackles/rales Cardiovascular: Normal S1 S2, Edema Gastrointestinal: Normal bowel sounds, Soft and benign Musculoskeletal: No clubbing Neurological: Normal strength at 5/5 x4 extr (Right above-knee amputation), Cranial nerves 3-12 intact Urinary: Be catheter (Be with hematuria) - Studies Microbiology Data (last 24 hrs): Laboratory Results WBC 8.10 thou/uL (4.3-10.9) 07/29/23 02:08 RBC 2.70 M/uL (4.33-5.43) L 07/29/23 02:08 Hgb 7.6 g/dL (13.6-17.9) L 07/29/23 02:08 Hct 24.1 % (39.6-49.0) L 07/29/23 02:08 MCV 89.1 fL (80-100) 07/29/23 02:08 MCH 28.3 pg (27.0-35.0) 07/29/23 02:08 MCHC 31.7 g/dL (32.0-36.0) L 07/29/23 02:08 RDW 26.5 % (12.1-15.2) H 07/29/23 02:08 Plt Count 277 thou/uL (152-406) 07/29/23 02:08 MPV 7.1 fL (7.6-11.3) L 07/29/23 02:08 Neutrophils % 80.7 % (41.7-73.7) H 07/29/23 02:08 Lymphocytes % 7.2 % (15.3-44.8) L 07/29/23 02:08 Monocytes % 7.5 % (3.3-12.3) 07/29/23 02:08 Eosinophils % 2.7 % (0-4.4) 07/29/23 02:08 Basophils % 1.9 % (0-1.3) H 07/29/23 02:08 Absolute Neutrophils 6.5 K/uL (1.8-8.0) 07/29/23 02:08 Absolute Lymphocytes 0.6 K/uL (0.7-4.9) L 07/29/23 02:08 Absolute Monocytes 0.6 K/uL (0.1-1.3) 07/29/23 02:08 Absolute Eosinophils 0.2 K/uL (0-0.5) 07/29/23 02:08 Absolute Basophils 0.2 K/uL (0-0.5) 07/29/23 02:08 Platelet Estimate Adeq 07/29/23 02:08 Anisocytosis 2+ 07/29/23 02:08 Target Cells 1+ 07/29/23 02:08 Ovalocytes 2+ 07/29/23 02:08 Schistocytes 1+ 07/29/23 02:08 Morphology Comment Noted (NOT SEEN) 07/29/23 02:08 PT 14.2 SECONDS (9.5-12.5) H 07/29/23 02:08 INR 1.30 07/29/23 02:08 Sodium 137 mEq/L (136-145) 07/29/23 02:08 Potassium 4.1 mEq/L (3.5-5.1) 07/29/23 02:08 Chloride 104 mEq/L (98-107) 07/29/23 02:08 Carbon Dioxide 24 mEq/L (21-32) 07/29/23 02:08 Anion Gap 13.1 mEq/L (5.0-15.0) 07/29/23 02:08 BUN 45 mg/dL (7-18) H 07/29/23 02:08 Creatinine 5.04 mg/dL (0.70-1.30) H 07/29/23 02:08 Est GFR (CKD-EPI) 11 ml/min (=/>90) L 07/29/23 02:08 Glucose 99 mg/dL (74-106) 07/29/23 02:08 Calcium 8.5 mg/dL (8.5-10.1) 07/29/23 02:08 Magnesium 2.6 mg/dL (1.6-2.4) H 07/29/23 02:08 Total Bilirubin 0.7 mg/dL (0.2-1.0) 07/29/23 02:08 Direct Bilirubin 0.3 mg/dL (0-0.2) H 07/29/23 02:08 Indirect Bilirubin 0.4 mg/dL (0.2-0.8) 07/29/23 02:08 AST 11 U/L (15-37) L 07/29/23 02:08 ALT < 14 U/L (16-61) L 07/29/23 02:08 Alkaline Phosphatase 50 U/L (45-117) 07/29/23 02:08 Troponin I High Sens 271.0 pg/mL (<58.9) H* 07/29/23 02:08 NT-Pro-B Natriuret Pep [id number] pg/mL (<450) H 07/29/23 02:08 Serum Total Protein 6.8 g/dL (6.4-8.2) 07/29/23 02:08 Albumin 3.5 g/dL (3.4-5.0) 07/29/23 02:08 Globulin 3.3 g/dL (2.3-3.5) 07/29/23 02:08 Albumin/Globulin Ratio 1.1 (1.1-1.8) 07/29/23 02:08 Smear Scan Ok (OK) 07/29/23 02:08 ABO/Rh O POSITIVE 07/29/23 03:02 Solid Phase Ab Screen Negative 07/29/23 03:02 Crossmatch See Detail 07/29/23 03:02 Medications List Reviewed: Yes Assessment And Plan - Plan Current Medications: Include: 1. Aspirin. 2. Cefepime. 3. Vancomycin. 4. Albuterol. 5. Flomax. 6. Epogen. 7. Atorvastatin. 8. Zoloft. 9. Gabapentin. 10. Breathing treatment. Assessment And Plan: 1. End-stage renal disease, over volume, status post challenge yesterday removed 3 L Will arrange for dialysis tomorrow will challenge again. Will start the patient on Lasix 80 mg daily 2. Hypertension, controlled, optimal. Utilize blood pressure for more ultrafiltration. 3. Fever. We will follow up culture. 4. Deconditioning. Continue PT/OT. 5. Congestive heart failure exacerbation. Status post challenging yesterday we will continue another session of dialysis tomorrow Will start the patient on Lasix 80 mg daily. 6-possible secondary to UTI patient was started on antibiotic we will follow-up with the hospitalist follow-up culture 7-bladder distention status post Be insertion will follow-up Time spent examining the patient [id number] reviewing data lab and radiology placing order discussing the case with the patient discussing the case with the steam setter including hospitalist and nursing staff more than 55 minutes
[2023-08-04] MEDS: FUROSEMIDE 40 MG TABLET PO SCH (14:14)
[2023-08-04] MEDS ORDERED: LORAZEPAM 0.5 MG TABLET PO PRN (16:09)
[2023-08-04] MEDS ORDERED: VANCOMYCIN 1 GM in NA CHLORIDE 0.9% 250 ML IVPB SCH (18:00)
[2023-08-04] MEDS: TAMSULOSIN 0.4 MG SR CAP PO SCH (20:31)
[2023-08-04] MEDS: ZOLPIDEM TARTRATE 10 MG TABLET PO SCH (20:32)
[2023-08-04] MEDS ORDERED: VANCOMYCIN 0.75 GM in NA CHLORIDE 0.9% 250 ML IVPB SCH (21:00)
[2023-08-05 07:36] LABS: Absolute Eosinophils 0.3 K/uL (0-0.5); Absolute Lymphocytes (CBC) 0.2 K/uL (0.7-4.9); Absolute Neutrophil 8.3 K/uL (1.8-8.0); Basophils % 0.4 % (0-1.3); Eosinophils % 3.2 % (0-4.4); Hematocrit 27.5 % (39.6-49.0); Lymphocytes % 1.8 % (15.3-44.8); MCH 29.6 pg (27.0-35.0); MCHC 32.8 g/dL (32.0-36.0); MCV 90.1 fL (80-100); MPV 7.1 fL (7.6-11.3); Monocytes % 10.3 % (3.3-12.3); Neutrophils % 84.3 % (41.7-73.7); Platelets 199 thou/uL (152-406); RBC Red Blood Cell Count 3.05 M/uL (4.33-5.43); Red Cell Distribution Width 20.8 % (12.1-15.2)
[2023-08-05 08:15] LABS: Albumin 2.7 g/dL (3.4-5.0); Albumin/Globulin Ratio 0.8 (1.1-1.8); Anion Gap 12.3 mEq/L (5.0-15.0); Bilirubin Total 0.7 mg/dL (0.2-1.0); Globulin 3.6 g/dL (2.3-3.5); Magnesium 2.4 mg/dL (1.6-2.4); Potassium 4.3 mEq/L (3.5-5.1); Protein, Total 6.3 g/dL (6.4-8.2)
--- NOTE | 2023-08-05 09:18 | P.PN ---
Date of Service: 08/05/23 Subjective: Feels like hes improving each day Denies any new / worsening problems denies any pains no further reported fever since 08/01 ROS: 10 point ROS as noted above, otherwise negative Physical Exam: GEN: Alert, oriented, NAD at rest HEENT: Normal conjunctiva, sclera anicteric CV: Regular rate and rhythm (paced), trace bilateral lower extremity edema Pulm: mild labored respirations on 3L NC at rest intermittently, diminished at bases b/l ABD: Soft, nontender, nondistended Neuro: Normal speech, anxious vitals reviewed melendez in place - yellow/light monica color with intermittent blood tinged urine in tube; darker monica/brownish in bag Problem List: ESRD on HD - MF Volume overload Fever, unknown origin; SIRS without clear infection source BPH / Urinary retention NSTEMI CAD s/p PCI to OM (07/24/23) 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 Nephrology consulted - HD per nephrology - received [id number] HD Cardiology recommending to consider increasing routine dialysis to 3x/week from twice weekly IV lasix initially dc'd 07/30 - Patient was refusing due to exacerbating his BPH symptoms/LUTS restarted PO lasix at 80 mg daily 08/03 pm per nephrology recheck home O2 sat for home oxygen Fever, unknown origin; SIRS without clear infection source Had 100.2 temp 07/31-08/01 overnight, and 101 fever at dialysis (08/01). Recheck without intervention a few minutes later down to 98 reportedly. denies any worsening symptoms 08/01 on full review of systems. No nausea/vomiting. 1 episode of diarrhea this morning. having urinary retention, however states is similar to symptoms he experienced at home prior to admission no new urinary symptoms however renal u/s noted Left sided hydronephrosis not seen on CT 1 month ago. fever/leukocytosis could be secondary to urinary retention vs UTI Melendez placed 08/01 urinary retention and recent instrumentation does place patient at risk of infection continue empiric cefepime (08/01-) dc vanc UA at time of straight cath was unremarkable; repeat UA (08/01): +LE, +RBC, +WBC, no bacteria urine cx (08/01): Mixed abby. > 100k cfu/ml Blood cx (08/01): NGTD CXR suggested CHF. No evidence of infection/infiltrate leukocytosis resolved. lactate normal BPH / Urinary retention reports dealing with some incontinence for "months" but hasn't followed up with a doctor routinely Bladder scan with 695 ml (07/29) continue home flomax, increased to 0.8 (08/03) dark urine noted per patient 07/31, states since straight cath, no bright red urine, possible secondary to traumatic catheter insertion will hold heparin dvt prophylaxis, pt is on DAPT and will need to continue DAPT with recent PCI Patient initially opted for straight cath due to past discomfort with prior melendez Melendez placed 08/01 due to likely continuing with retention and to minimize trauma from straight cath urine clearing up 08/02, occasional blood tinged/clot repeat renal u/s ordered to reeval kidneys/hydro anticipate dc home with melendez until urology follow up NSTEMI CAD s/p PCI to OM (07/24/23) 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 Reports compliance with home meds. Heart Cath OP-report (07/23): significant OM2 disease (~80%) s/p PCI overlapped with old stent. Distal occluded RCA Most recent Echo (04/30/23): 62% EF, moderate diastolic dysfunction, mild MR/TR, severe pulmonary hypertension Troponin mildly elevated - suspect demand ischemia. Monitor on telemetry Cardiology consulted continue aspirin 81mg, brilinta PO lasix 80 mg daily restarted 08/03 Symptomatic anemia / iron deficiency anemia, acute on chronic hgb 7.6 on admission; s/p 2 uPRBC (07/28) for symptomatic anemia in the context of cardiopulmonary disease iron studies consistent with iron deficiency anemia (iron 26, tsat% 8.2%) monitor H&H. Denies any bleeding. hgb stable last ~48 hours Hyperlipidemia continue home statin Depression/Anxiety/Insomnia continue home setraline resumed home ambien at bedtime Hypertension hx macular degeneration hx PAD confirm home meds, restart as appropriate VTE: hold heparin sq Code: Full Dispo: home, ~ vs Sat pending home O2 setup urinary retention / hematuria improved, re-eval hydronephrosis
--- NOTE | 2023-08-05 14:06 | RAD REPORT ---
EXAM DESCRIPTION: US - Renal Ultrasound-Complete - 08/05/2023 9:17 am CLINICAL HISTORY: f/u eval of left hydronephrosis COMPARISON: Renal Ultrasound-Complete dated 08/02/2023 TECHNIQUE: Sonographic grayscale and color flow images of the kidneys and bladder were obtained. FINDINGS: The patient is status post right nephrectomy. Mild free ascites seen in the right flank. The left kidney measures 10 cm in length. Left kidney shows normal contour with preserved corticomedu llary differentiation. Mild prominence of the left renal pelvis, measuring up to 7 mm in diameter. No focal mass, or echogenic calculi. The urinary bladder is partially decompressed, limiting evaluation, with Be catheter in place. IMPRESSION: Mild prominence of the left renal pelvis, with marked interval improvement of the left h ydronephrosis since the prior ultrasound. Status post right nephrectomy. Mild free ascites in the right flank.
[2023-08-05] MEDS: EPOETIN ALFA 10,000 UNIT/ML VIAL IV SCH (17:45)
--- NOTE | 2023-08-05 18:02 | PN ---
Chief Complaint: End-stage renal disease, on hemodialysis. Subjective: The patient has multiple medical problems including history of congestive heart failure with diastolic dysfunction, coronary artery disease, recent myocardial infarction, treated with PTCA. The patient is admitted to the hospital because of shortness of breath, congestive heart failure. He received extra dialysis session to treat fluid overload and for management of chronic congestive h eart failure and acute on chronic congestive heart failure. The patient had a Be catheter placed and Be revealed hematuria. The patient has urinary tract infection and is on antibiotics. Review of Systems: Denies fevers or chills. Physical Examination: Lungs: Few rhonchi. Crackles at bases. Heart: S1, S2. Abdomen: Soft, benign. Extremities: Edema has improved. Laboratory Data: Hemoglobin 7.6, WBC 8.1, platelet count is 277,000. Sodium 137, potassium 4.1, chl oride 104, BUN 45, creatinine 5.04, calcium 8.5, albumin 3.5. Impression And Plan: 1.Hematuria, gross. The patient has Be catheter. He has urinary tract infection and is on cefep aryan. Also received vancomycin, renally adjusted. Continue current treatment. Patient will need Uro logy followup for further workup and cystoscopy. 2.Hypertension, controlled. 3.Intradialytic hypotension. Monitor blood pressure during dialysis. Plan is to use midodrine as n eeded. 4.Congestive heart failure exacerbation. Continue p.o. fluid restriction. Advance ultrafiltration as needed. 5.Urinary tract infection. Continue antibiotics. Follow up urine culture and blood culture. 6.Renal osteodystrophy. Continue renal diet and binders. EB/MODL Voice ID: [id number] Report ID: [id number]
[2023-08-05] MEDS: CEFEPIME 1 GM in NA CHLORIDE 0.9% 100 ML IV SCH (20:26)
[2023-08-06 03:38] LABS: Absolute Eosinophils 0.3 K/uL (0-0.5); Absolute Lymphocytes (CBC) 0.2 K/uL (0.7-4.9); Absolute Monocytes 0.9 K/uL (0.1-1.3); Absolute Neutrophil 8.1 K/uL (1.8-8.0); Basophils % 0.3 % (0-1.3); Eosinophils % 2.9 % (0-4.4); Hematocrit 26.5 % (39.6-49.0); Hemoglobin 8.9 g/dL (13.6-17.9); Lymphocytes % 2.4 % (15.3-44.8); MCH 29.6 pg (27.0-35.0); MCHC 33.6 g/dL (32.0-36.0); MCV 88.1 fL (80-100); MPV 6.7 fL (7.6-11.3); Neutrophils % 85.4 % (41.7-73.7); Platelets 230 thou/uL (152-406); RBC Red Blood Cell Count 3.01 M/uL (4.33-5.43); Red Cell Distribution Width 21.2 % (12.1-15.2)
[2023-08-06 03:51] LABS: Albumin 2.6 g/dL (3.4-5.0); Albumin/Globulin Ratio 0.7 (1.1-1.8); Anion Gap 9.8 mEq/L (5.0-15.0); Bilirubin Total 0.7 mg/dL (0.2-1.0); Globulin 3.6 g/dL (2.3-3.5); Magnesium 2.1 mg/dL (1.6-2.4); Potassium 3.8 mEq/L (3.5-5.1); Protein, Total 6.2 g/dL (6.4-8.2)
[2023-08-06 05:25] LABS: Band Neutrophils 11 % (0-1); Differential Total Cells Count 100; Eosinophils 8 % (0-3); Lymphocytes 5 % (15-42); Monocytes 3 % (0-10); Segmented Neutrophils 73 % (40-80)
[2023-08-06 05:26] LABS: Anisocytosis 1+; Blood Morphology Comment NOTED (NOT SEEN); Burr Cells 3+; Microcytosis 1+; Platelet Estimate ADEQ
[2023-08-06 10:03] VITALS: O2SAT 100
[2023-08-06 12:08] VITALS: BP 106/57; TEMP 97.7
--- NOTE | 2023-08-06 12:57 | P.DS ---
Admission Date: 07/29/23 Discharge Date: 08/06/23 Disposition: DC HOME/HOME HEALTH CARE Discharge Condition: FAIR Reason for Admission: SOB feeling better s/p dialysis yesterday Hospital Course: 77 yrs old Male with past medical history of ESRD on dialysis Saturday and Saturday, diabetes, hypertension, hyperlipidemia, depression, anxiety, CHF, GERD, history of macular degeneration, peripheral artery disease, status post right AKA, recently been admitted to the hospital and underwent left heart catheterization and had stents placed Came to ER with shortness of breath. Patient was assessed in the ER and was admitted for fluid overload with possible CHF exacerbation. 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 Nephrology consulted patient underwent hemodialysis for consecutive days. Nephrology Dr. Carrington is considering hemodialysis 3 times a week. He was treated with IV Lasix and transition to Lasix 80 mg daily per nephrology recommendation. Patient was requiring oxygen to bring to good oxygen saturation. He is discharged with home oxygen. Sepsis Urinary tract infection Had 100.2 temp 07/31-08/01 overnight, and 101 fever at dialysis (08/01). Recheck without intervention a few minutes later down to 98 reportedly. denies any worsening symptoms 08/01 on full review of systems. No nausea/vomiting. 1 episode of diarrhea this morning. no new urinary symptoms however renal u/s noted Left sided hydronephrosis not seen on CT 1 month ago. Fever/leukocytosis could be secondary to urinary retention vs UTI Be placed on 08/01 Patient treated with 3 days of IV antibiotics which included cefepime and vancomycin. Urine culture showed mixed growth. Blood culture yielded no growth. Patient was discharged with renally dosed oral cefpodoxime to continue treatment for the UTI BPH / Urinary retention reports dealing with some incontinence for "months" but hasn't followed up with a doctor routinely Bladder scan with 695 ml (07/29) Patient has been taking Flomax dose which was increased to 0.8 mg daily. Renal ultrasound done showed advanced left hydronephrosis. Repeat renal ultrasound after Be catheter placement showed marked interval improvement of the left hydronephrosis. Dr. Koenig urology follow-up with patient in the office. 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 Reported compliance with home meds. Recent cardiac catheterization with stent placement. Seen by cardiology and patient maintained on aspirin and Brilinta. He was also high-dose Lipitor. Symptomatic anemia / iron deficiency anemia, acute on chronic hgb 7.6 on admission. Patient was transfused 2 uPRBC on 07/28 for symptomatic anemia in the context of cardiopulmonary disease iron studies consistent with iron deficiency anemia (iron 26, tsat% 8.2%) Patient prescribed iron supplementation. Hyperlipidemia continued home statin Depression/Anxiety/Insomnia continued home setraline Continue home ambien and trazodone at bedtime Follow up: PCP 3-5 days Nephrology 1-2 weeks Follow-up with urology Dr. Koenig within 2 weeks. Vital Signs/Physical Exam: Temp Pulse Resp BP Pulse Ox 97.7 F 72 17 106/57 L 95 08/06/23 11:48 08/06/23 11:48 08/06/23 11:48 08/06/23 11:48 08/06/23 11:48 General: Alert, In no apparent distress, Oriented x3 HEENT: Mucous membr. moist/pink Neck: Supple, JVD not distended, JVD distended Respiratory: Clear to auscultation bilaterally, Normal air movement Cardiovascular: No edema, Regular rate/rhythm, Normal S1 S2 Gastrointestinal: Soft and benign, Non-distended, No tenderness Musculoskeletal: No swelling, Other (Right AKA) Integumentary: No rashes, No cyanosis Neurological: Normal speech, Normal strength at 5/5 x4 extr Laboratory Data at Discharge: WBC 9.50 thou/uL (4.3-10.9) 08/06/23 03:15 Hgb 8.9 g/dL (13.6-17.9) L 08/06/23 03:15 Hct 26.5 % (39.6-49.0) L 08/06/23 03:15 Plt Count 230 thou/uL (152-406) 08/06/23 03:15 PT 14.2 SECONDS (9.5-12.5) H 07/29/23 02:08 INR 1.30 07/29/23 02:08 Sodium 137 mEq/L (136-145) 08/06/23 03:15 Potassium 3.8 mEq/L (3.5-5.1) 08/06/23 03:15 BUN 45 mg/dL (7-18) H 08/06/23 03:15 Creatinine 4.48 mg/dL (0.70-1.30) H 08/06/23 03:15 Glucose 82 mg/dL (74-106) 08/06/23 03:15 Phosphorus 4.7 mg/dL (2.5-4.9) 08/02/23 03:09 Magnesium 2.1 mg/dL (1.6-2.4) 08/06/23 03:15 Total Bilirubin 0.7 mg/dL (0.2-1.0) 08/06/23 03:15 AST 31 U/L (15-37) 08/06/23 03:15 ALT 21 U/L (16-61) 08/06/23 03:15 Alkaline Phosphatase 85 U/L (45-117) 08/06/23 03:15 Home Medications: Zolpidem Tartrate [Ambien*] 10 mg PO BEDTIME PRN PRN 01/10/17 Losartan Potassium 50 tab PO DAILY 08/14/22 Sertraline [Zoloft*] 50 mg PO DAILY 09/11/22 Gabapentin 300 mg PO BEDTIME 04/29/23 Trazodone [Desyrel*] 150 mg PO BEDTIME 04/29/23 Ticagrelor [Brilinta*] 90 mg PO DAILY 07/23/23 Fluticasone [Flonase 50MCG Nasal [place]*] 3 spray IH DAILY 08/01/23 Albuterol Neb [Proventil 0.083% Neb Soln] 2.5 mg NEB Q6HP PRN #120 amp 08/06/23 Ascorbic Acid [Vitamin C] 500 mg PO DAILY #30 tab 08/06/23 Aspirin [Aspirin EC 81 MG] 81 mg PO DAILY #30 tab 08/06/23 Atorvastatin Calcium [Lipitor] 80 mg PO BEDTIME #30 tab 08/06/23 Cefpodoxime Proxetil [Vantin] 200 mg PO DAILY #5 tab 08/06/23 Epoetin [Retacrit] 10,000 unit IV EVERY HD vial 08/06/23 Folic Acid 1 mg PO DAILY #30 tab 08/06/23 Furosemide [Lasix] 80 mg PO DAILY #30 tab 08/06/23 Ipratropium Neb [Atrovent*] 0.5 mg NEB [id number] PRN #120 amp 08/06/23 Iron Polysaccharide Complex [Ferric X-150] 150 mg PO DAILY #30 tab 08/06/23 Oxycodone HCl/Acetaminophen [Percocet 5/325 Tab*] 1 tab PO Q4H PRN #20 tab 08/06/23 Polyethylene Glycol 3350 [Miralax] 17 gm PO DAILY #30 packet 08/06/23 Sennosides [Senokotxtra] 17.2 mg PO DAILY #60 tab 08/06/23 Tamsulosin [Flomax*] 0.8 mg PO BEDTIME #60 cap 08/06/23 New Medications: Ipratropium Neb [Atrovent*] 0.5 mg NEB [id number] PRN #120 amp PRN Reason: Shortness Of Breath Albuterol Neb [Proventil 0.083% Neb Soln] 2.5 mg NEB Q6HP PRN #120 amp PRN Reason: Shortness Of Breath Aspirin [Aspirin EC 81 MG] 81 mg PO DAILY #30 tab Iron Polysaccharide Complex [Ferric X-150] 150 mg PO DAILY #30 tab Tamsulosin [Flomax*] 0.8 mg PO BEDTIME #60 cap Folic Acid 1 mg PO DAILY #30 tab Furosemide [Lasix] 80 mg PO DAILY #30 tab Atorvastatin Calcium [Lipitor] 80 mg PO BEDTIME #30 tab Polyethylene Glycol 3350 [Miralax] 17 gm PO DAILY #30 packet Oxycodone HCl/Acetaminophen [Percocet 5/325 Tab*] 1 tab PO Q4H PRN #20 tab PRN Reason: Pain Scale 8-10 (Severe) Sennosides [Senokotxtra] 17.2 mg PO DAILY #60 tab Cefpodoxime Proxetil [Vantin] 200 mg PO DAILY #5 tab Ascorbic Acid [Vitamin C] 500 mg PO DAILY #30 tab Physician Discharge Instructions: Physician discharge instructions: 77 yrs old Male with past medical history of ESRD on dialysis Saturday and Saturday, diabetes, hypertension, hyperlipidemia, depression, anxiety, CHF, GERD, history of macular degeneration, peripheral artery disease, status post right AKA, recently been admitted to the hospital and underwent left heart catheterization and had stents placed Came to ER with shortness of breath. Patient was assessed in the ER and was admitted for fluid overload with possible CHF exacerbation. The following medical problems were addressed during the hospital stay: ESRD on HD - MF Volume overload at time of admission: reported worsening dyspnea, generalized weakness, lower extremity edema, fluid overload improving with dialysis Checks x-ray showed pulmonary edema. Nephrology consulted patient underwent hemodialysis for consecutive days. Nephrology Dr. Carrington is considering hemodialysis 3 times a week. He was treated with IV Lasix and transition to Lasix 80 mg daily per nephrology recommendation. Patient was requiring oxygen to bring to good oxygen saturation. He is discharged with home oxygen. Sepsis Urinary tract infection Had 100.2 temp 07/31-08/01 overnight, and 101 fever at dialysis (08/01). Recheck without intervention a few minutes later down to 98 reportedly. denies any worsening symptoms 08/01 on full review of systems. No nausea/vomiting. 1 episode of diarrhea this morning. no new urinary symptoms however renal u/s noted Left sided hydronephrosis not seen on CT 1 month ago. Fever/leukocytosis could be secondary to urinary retention vs UTI Be placed on 08/01 Patient treated with 3 days of IV antibiotics which included cefepime and vancomycin. Urine culture showed mixed growth. Blood culture yielded no growth. Patient was discharged with renally dosed oral cefpodoxime to continue treatment for the UTI BPH / Urinary retention reports dealing with some incontinence for "months" but hasn't followed up with a doctor routinely Bladder scan with 695 ml (07/29) Patient has been taking Flomax dose which was increased to 0.8 mg daily. Renal ultrasound done showed advanced left hydronephrosis. Repeat renal ultrasound after Be catheter placement showed marked interval improvement of the left hydronephrosis. Dr. Koenig urology follow-up with patient in the office. 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 Reported compliance with home meds. Recent cardiac catheterization with stent placement. Seen by cardiology and patient maintained on aspirin and Brilinta. He was also high-dose Lipitor. Symptomatic anemia / iron deficiency anemia, acute on chronic hgb 7.6 on admission. Patient was transfused 2 uPRBC on 07/28 for symptomatic anemia in the context of cardiopulmonary disease iron studies consistent with iron deficiency anemia (iron 26, tsat% 8.2%) Patient prescribed iron supplementation. Hyperlipidemia continued home statin Depression/Anxiety/Insomnia continued home setraline Continue home ambien and trazodone at bedtime Follow up: PCP 3-5 days Nephrology 1-2 weeks Follow-up with urology Dr. Koenig within 2 weeks. Diet: AHA Activity: Fall precautions Followup: Nohelia Carrington MD [ACTIVE - CAN ADMIT] - 1-2 Weeks OOT,OOT [Primary Care Provider] - Time spent managing pt's care (in minutes): 40
--- NOTE | 2023-08-06 13:27 | P.PN ---
Subjective Date of Service: 08/06/23 Chief Complaint: SOB feeling better s/p dialysis yesterday Subjective: No new changes Review of Systems 10-point ROS is otherwise unremarkable Physical Examination - Vital Signs Temperature: 97.7 F Blood Pressure: 106/57 Pulse: 72 Respirations: 17 Pulse Ox (%): 95 - Physical Exam General: Alert HEENT: Atraumatic Neck: Supple, 2+ carotid pulse no bruit Respiratory: Crackles/rales Cardiovascular: No edema Capillary refill: <2 Seconds Gastrointestinal: Normal bowel sounds, Non-distended Musculoskeletal: No clubbing, Other (AKA) Neurological: Normal gait, Normal speech, Normal strength at 5/5 x4 extr - Studies Medications List Reviewed: Yes Assessment And Plan - Plan Current Medications: Include: 1. Aspirin. 2. Cefepime. 3. Vancomycin. 4. Albuterol. 5. Flomax. 6. Epogen. 7. Atorvastatin. 8. Zoloft. 9. Gabapentin. 10. Breathing treatment. Assessment And Plan: 1. End-stage renal disease, over volume, status post challenge yesterday removed 3 L I had long discussion with the patient the need to be dialyzed 3 times a week patient on agreement Continue Lasix 80 mg daily Clear from the renal standpoint for DC planning 2. Hypertension, controlled, optimal. Utilize blood pressure for more ultrafiltration. 3. Fever. We will follow up culture. 4. Deconditioning. Continue PT/OT. 5. Congestive heart failure exacerbation. Status post challenging yesterday we will continue another session of dialysis tomorrow Will start the patient on Lasix 80 mg daily. 6-possible secondary to UTI patient was started on antibiotic we will follow-up with the hospitalist follow-up culture 7-bladder distention status post Be insertion will follow-up Time spent examining the patient [id number] reviewing data lab and radiology placing order discussing the case with the patient discussing the case with the steam room attendant including hospitalist and nursing staff more than 55 minutes
== END 2023-08-06 14:27 | disposition home health service (06) | DRG 280 ==
LOC: ER 01:50 → 2ND 04:45
PROVIDERS: ADMIT Family Medicine; ATTEND Internal Medicine
PROC: 5A1D70Z Performance of Urinary Filtration, Intermittent, Less than 6 Hours Per Day (ICD-10-PCS; 2023-07-29)
PROC: 30233N1 Transfusion of Nonautologous Red Blood Cells into Peripheral Vein, Percutaneous Approach (ICD-10-PCS; 2023-07-29)
PROC: 0T9B70Z Drainage of Bladder with Drainage Device, Via Natural or Artificial Opening (ICD-10-PCS; principal; 2023-08-02)
DX: I13.2 Hypertensive heart and chronic kidney disease with heart failure and with stage 5 chronic kidney disease, or end stage renal disease (principal); A41.9 Sepsis, unspecified organism; I21.A1 Myocardial infarction type 2; N18.6 End stage renal disease; J96.91 Respiratory failure, unspecified with hypoxia; I50.43 Acute on chronic combined systolic (congestive) and diastolic (congestive) heart failure; N25.81 Secondary hyperparathyroidism of renal origin; N13.6 Pyonephrosis; D63.1 Anemia in chronic kidney disease; E66.9 Obesity, unspecified; E78.00 Pure hypercholesterolemia, unspecified; K21.9 Gastro-esophageal reflux disease without esophagitis; N40.1 Benign prostatic hyperplasia with lower urinary tract symptoms; R33.8 Other retention of urine; Z99.2 Dependence on renal dialysis; Z88.0 Allergy status to penicillin; Z95.0 Presence of cardiac pacemaker; Z91.013 Allergy to seafood; Z68.31 Body mass index [BMI] 31.0-31.9, adult; Z79.899 Other long term (current) drug therapy; Z89.511 Acquired absence of right leg below knee; Z91.048 Other nonmedicinal substance allergy status; Z91.158 Patient's noncompliance with renal dialysis for other reason; E11.22 Type 2 diabetes mellitus with diabetic chronic kidney disease; E11.51 Type 2 diabetes mellitus with diabetic peripheral angiopathy without gangrene; I25.10 Atherosclerotic heart disease of native coronary artery without angina pectoris; N25.0 Renal osteodystrophy; D50.9 Iron deficiency anemia, unspecified; F32.A Depression, unspecified; F41.9 Anxiety disorder, unspecified; I95.3 Hypotension of hemodialysis; G47.00 Insomnia, unspecified; R31.0 Gross hematuria
CPT/HCPCS: 36415; 71045; 76770; 80048; 80053; 80069; 80076; 80202; 81001; 81003; 82728; 82947; 83540; 83605; 83735; 83880; 84100; 84466; 84484; 85025; 85610; 86850; 86900; 86901; 86920; 87040; 87086; 87088; 87340; 90935; 93005; 94640; 94760; 96374; 96375; 99285; J0692; J1644; J1940; J7040; J7050; J7613; J7644; P9016; P9047; Q4081

== ENCOUNTER 2023-09-13 21:38 | Emergency (ER) | payer OTHER, BC ==
[2023-09-13] MEDS ORDERED: LIDOCAINE 2% W/EPI 1:200,000 MPF 20 ML VIAL IM ONE (22:06)
--- NOTE | 2023-09-14 00:53 | ER ---
Nurse's Notes [facility] Name: Amando Grossman Age: 77 yrs Sex: Male : 1945 Arrival Date: 09/13/2023 Time: 21:38 Bed 8 Private MD: Diagnosis: Persistent bleeding from oral ulcer, acute accidental bite rylee left internal buccal surface with persistent bleeding Presentation: 09/12 21:44 Chief complaint: Patient states: bleeding from mouth since dialysis this morning. cp4 Coronavirus screen: Client denies travel out of the [place] in the last 14 days. At this time, the client does not indicate any symptoms associated with coronavirus-19. Ebola Screen: Patient negative for fever greater than or equal to 101.5 degrees Fahrenheit, and additional compatible Ebola Virus Disease symptoms Patient denies exposure to infectious person. Patient denies travel to an Ebola-affected area in the 21 days before illness onset. No symptoms or risks identified at this time. Initial Sepsis Screen: Does the patient meet any 2 criteria? RR > 20 per min. No. Patient's initial sepsis screen is negative. Does the patient have a suspected source of infection? No. Patient's initial sepsis screen is negative. Risk Assessment: Do you want to hurt yourself or someone else? Patient reports no desire to harm self or others. Onset of symptoms was September 13, 2023. 21:44 Method Of Arrival: EMS: [facility] 21:44 Acuity: KELLY 3 cp4 Triage Assessment: 21:47 General: Appears uncomfortable, Behavior is calm, cooperative, appropriate for age. cp4 Pain: Denies pain. EENT: Reports bleeding from mouth. Neuro: No deficits noted. Cardiovascular: No deficits noted. Respiratory: No deficits noted. GI: No deficits noted. : No deficits noted. Derm: No deficits noted. Musculoskeletal: No deficits noted. Historical: - Allergies: 21:47 Iodine; topical is ok; cp4 21:47 PENICILLINS; cp4 21:47 Shellfish Containing Products; cp4 21:47 STATINS [facility] COA REDUCTASE INHIBITORS; cp4 - Home Meds: 21:47 Brilinta 60 mg Oral tablet 1 tab [Active]; Furosemide Oral [Active]; losartan oral cp4 [Active]; - PMHx: 21:47 Anxiety; CHF; Depression; Dialysis <M and F; DM; GERD; High Cholesterol; Hypertension; cp4 macular degeneration; Urinary Urgency; - PSHx: 21:47 Right above the knee amputation.; cp4 - Immunization history:: Adult Immunizations up to date. - Infectious Disease History:: Denies. - Social history:: Smoking status: Patient denies any tobacco usage or history of. - Family history:: not pertinent. Screenin:49 [facility] ED Fall Risk Assessment (Adult) History of falling in the last 3 months, cp4 including since admission No falls in past 3 months (0 pts) Confusion or Disorientation No (0 pts) Intoxicated or Sedated No (0 pts) Impaired Gait Yes (1 pt) Mobility Assist Device Used Yes (1 pt) Altered Elimination No (0 pt) Score/Fall Risk Level 0 - 2 = Low Risk Oriented to surroundings, Maintained a safe environment, Assessed \T\ reinforced patient's understanding of fall precautions, Hourly rounding (assess needs \T\ fall precautionary measures) done. Abuse screen: Denies threats or abuse. Nutritional screening: No deficits noted. Tuberculosis screening: No symptoms or risk factors identified. Assessment: 21:49 Reassessment: No changes from previously documented assessment. cp4 Vital Signs: 21:44 BP 105 / 52; Pulse 83; Resp 23; Temp 98; Pulse Ox 99% ; cp4 08/03 01:24 BP 132 / 63; Pulse 82; Resp 24; Temp 98.2; Pulse Ox 99% ; Pain 3/10; jm12 /03 01:24 Pain Scale: Adult [facility] [place] Coma Score: 06:24 Eye Response: spontaneous(4). Motor Response: obeys commands(6). Verbal Response: sp4 oriented(5). Total: 15. ED Course: 09/12 21:42 Patient arrived in ED. cp4 21:44 Katie Smith is Primary Nurse. cp4 21:47 Triage completed. cp4 21:47 Arm band placed on right wrist. Patient placed in an exam room, on a stretcher. cp4 21:49 Bed in low position. Call light in reach. Side rails up X2. cp4 21:52 Davi Gil MD is Attending Physician. sp4 Administered Medications: No medications were administered Medication: 21:49 VIS not applicable for this client. cp4 Outcome: 09/13 00:52 Discharge ordered by . jay 01:26 Discharged to home via wheelchair, jm12 01: Condition: stable 01:26 Discharge instructions given to patient, family, Instructed on discharge instructions, follow up and referral plans. Demonstrated understanding of instructions, follow-up care, : Patient left the ED. jm12 Signatures: Davi Gil MD MD sp4 Katie Smith Jessica RN RN jm12
--- NOTE | 2023-09-14 00:53 | EDPHYS ---
Physician Documentation [facility] Name: Amando Grossman Age: 77 yrs Sex: Male : 1945 Arrival Date: 09/13/2023 Time: 21:38 Bed 8 Private MD: ED Physician Davi Gil HPI: 09/12 21:52 This 77 yrs old Male presents to ER via EMS with complaints of Mouth Problem. sp4 09/13 06:24 77-year-old male with history of end-stage renal disease on dialysis , anticoagulated sp4 on Eliquis presents with acute bleeding from the mouth.. Patient states his bleeding started from the left side of his mouth while on dialysis. . Historical: - Allergies: 09/12 21:47 Iodine; topical is ok; cp4 21:47 PENICILLINS; cp4 21:47 Shellfish Containing Products; cp4 21:47 STATINS HMG COA REDUCTASE INHIBITORS; cp4 - Home Meds: 21:47 Brilinta 60 mg Oral tablet 1 tab [Active]; Furosemide Oral [Active]; losartan oral cp4 [Active]; - PMHx: 21:47 Anxiety; CHF; Depression; Dialysis <M and F; DM; GERD; High Cholesterol; Hypertension; cp4 macular degeneration; Urinary Urgency; - PSHx: 21:47 Right above the knee amputation.; cp4 - Immunization history:: Adult Immunizations up to date. - Infectious Disease History:: Denies. - Social history:: Smoking status: Patient denies any tobacco usage or history of. - Family history:: not pertinent. ROS: 09/13 06:24 Constitutional: Negative for fever, chills, and weight loss, positive bleeding from sp4 oral cavity All other systems are negative, Exam: 06:24 Constitutional: This is a well developed, well nourished patient who is awake, alert, sp4 overweight male, chronically debilitated, left forearm dialysis fistula, there is right above-knee amputation. Head/Face: Normocephalic, atraumatic. Eyes: Pupils equal round and reactive to light, extra-ocular motions intact. Lids and lashes normal. Conjunctiva and sclera are not injected. Cornea within normal limits. Periorbital areas with no swelling, redness, or edema. ENT: Nares patent. No nasal discharge, no septal abnormalities noted. Tympanic membranes are normal and external auditory canals are clear. Oropharynx with no redness, swelling, or masses, exudates, or evidence of obstruction, uvula midline. Mucous membranes moist. There is small bite rylee left buccal mucosa with persistent small amount of bleeding.. This is consistent with acute cheek bite with persistent bleeding Neck: Trachea midline, no thyromegaly or masses palpated, and no cervical lymphadenopathy. Supple, full range of motion without nuchal rigidity, or vertebral point tenderness. Chest/axilla: Normal chest wall appearance and motion. Nontender with no deformity. No lesions are appreciated. Cardiovascular: Regular rate and rhythm with a normal S1 and S2. No gallops, murmurs, or rubs. Normal PMI, no JVD. No pulse deficits. Respiratory: Lungs have equal breath sounds bilaterally, clear to auscultation and percussion. No rales, rhonchi or wheezes noted. No increased work of breathing, no retractions or nasal flaring. Abdomen/GI: Soft, with normal bowel sounds. No distension or tympany. No guarding or rebound. No evidence of tenderness throughout. Back: No spinal tenderness. No costovertebral tenderness. Skin: Warm, dry with normal turgor. Normal color with no rashes, no lesions, and no evidence of cellulitis. MS/ Extremity: Pulses equal, no cyanosis. Neurovascular intact. Full, normal range of motion. Neuro: Awake and alert, GCS 15, oriented to person, place, time, and situation. Cranial nerves II-XII grossly intact. Exam limited secondary to right above-knee amputation. Overall no new neurologic deficits reported Vital Signs: 09/12 21:44 BP 105 / 52; Pulse 83; Resp 23; Temp 98; Pulse Ox 99% ; cp4 09/13 01:24 BP 132 / 63; Pulse 82; Resp 24; Temp 98.2; Pulse Ox 99% ; Pain 3/10; jm12 09/13 01:24 Pain Scale: Adult [facility] [place] Coma Score: 06:24 Eye Response: spontaneous(4). Motor Response: obeys commands(6). Verbal Response: sp4 oriented(5). Total: 15. MDM: 09/12 22:37 Patient medically screened. sp4 09/13 06:24 Differential diagnosis: dental caries, gingivitis, dental abscess, aphthous ulcers, sp4 gingivostomatitis. Data reviewed: vital signs, nurses notes, old medical records. ED course: Patient's small bite rylee to the left buccal mucosa has stopped bleeding on its own. Patient stable for discharge home.. Administered Medications: No medications were administered Disposition Summary: 09/14/23 00:52 Discharge Ordered Notes: No bleeding on repeat exam, safe for discharge home Location: Home sp4 Problem: new sp4 Symptoms: have improved sp4 Condition: Stable sp4 Diagnosis - Persistent bleeding from oral ulcer, acute accidental bite rylee left internal sp4 buccal surface with persistent bleeding Followup: sp4 - With: Private Physician - When: As needed - Reason: Recheck today's complaints Discharge Instructions: - Discharge Summary Sheet sp4 - Bleeding Disorder sp4 Forms: - Patient Portal Instructions sp4 Signatures: Davi Gil MD MD sp4 Katie Smith cp4
[2023-09-14 05:42] VITALS: O2SAT 99
[2023-09-14 05:43] VITALS: BP 132/63; TEMP 98.2
== END 2023-09-14 01:26 | disposition home or self-care (01) ==
LOC: ER 21:38
DX: K13.79 Other lesions of oral mucosa (principal); S01.552A Open bite of oral cavity, initial encounter
CPT/HCPCS: 99283

== ENCOUNTER 2023-11-20 15:46 | Emergency (ER) | payer OTHER, BC ==
[2023-11-20 16:38] LABS: Absolute Basophils 0.1 K/uL (0-0.5); Absolute Eosinophils 0.6 K/uL (0-0.5); Absolute Lymphocytes (CBC) 0.4 K/uL (0.7-4.9); Absolute Monocytes 0.9 K/uL (0.1-1.3); Absolute Neutrophil 6.8 K/uL (1.8-8.0); Basophils % 0.9 % (0-1.3); Eosinophils % 6.5 % (0-4.4); Hematocrit 32.1 % (39.6-49.0); Hemoglobin 10.5 g/dL (13.6-17.9); Lymphocytes % 4.7 % (15.3-44.8); MCH 28.7 pg (27.0-35.0); MCHC 32.8 g/dL (32.0-36.0); MCV 87.6 fL (80-100); MPV 6.6 fL (7.6-11.3); Monocytes % 9.9 % (3.3-12.3); Nucleated Red Blood Cells % 0.1 % (0-0); Platelets 270 thou/uL (152-406); RBC Red Blood Cell Count 3.66 M/uL (4.33-5.43); Red Cell Distribution Width 19.5 % (12.1-15.2)
[2023-11-20 16:51] LABS: Albumin 2.8 g/dL (3.4-5.0); Albumin/Globulin Ratio 0.7 (1.1-1.8); Bilirubin Total 0.7 mg/dL (0.2-1.0); Globulin 4.2 g/dL (2.3-3.5)
--- NOTE | 2023-11-20 17:43 | RAD REPORT ---
EXAMINATION: ONE VIEW CHEST XR CLINICAL INDICATION: Male, 78 years old.,DYSPNEA TECHNIQUE: Frontal chest projection is submitted. Examination is limited by patient positioning and t echnique. COMPARISON: No prior exam. FINDINGS: Decreased inspiratory effort particularly on the right. Blunting of the costophrenic angles, similar to prior exam. Right chest wall pacer in place. No pneumothorax or sizable effusion. The heart is again enlarged. IMPRESSION: Stable findings as above.
--- NOTE | 2023-11-20 17:49 | RAD REPORT ---
EXAMINATION: XR FOREARM CLINICAL INDICATION: Male, [address] years [address] [facility] MAIN PAIN Bed Name: 4 TECHNIQUE: 2 view radiograph of the left forearm were obtained. . COMPARISON: No prior exam. FINDINGS: No evidence of fracture or dislocation. Normal alignment. Advanced degenerative changes at the thumb base. Some subchondral lucencies at the other metatarsal heads, not well evaluated, suggest degenerative changes. No Other focal bone lesion. Focal soft tissue swelling about the proxim al forearm volar and lateral aspect. IMPRESSION: No acute osseous abnormality. Focal soft tissue swelling about the proximal forearm volar and lateral aspect. Degenerative changes as above.
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
[2023-11-20 21:13] VITALS: TEMP 98.1
[2023-11-20 21:17] VITALS: BP 128/73; O2SAT 92
== END 2023-11-20 18:58 | disposition home or self-care (01) ==
LOC: ER 15:46
DX: S50.812A Abrasion of left forearm, initial encounter (principal); W10.2XXA Fall (on)(from) incline, initial encounter; Z99.2 Dependence on renal dialysis
CPT/HCPCS: 36415; 71045; 80053; 85025

== ENCOUNTER 2023-11-22 15:10 | Inpatient (IN) | payer OTHER, BC ==
--- NOTE | 2023-11-22 15:43 | RAD REPORT ---
EXAM: CT brain without contrast HISTORY: Confusion COMPARISON: 2021 TECHNIQUE: Multiple contiguous axial images were obtained and a CT of the brain without contrast. Sagittal and coronal reformats were performed. Automated exposure control, adjustment of the mA and/or kV according to patient size, and/or itera tive reconstruction. Unless otherwise specified, incidental findings do not require dedicated imaging follow-u FINDINGS: An intracranial bleed is not seen Ventricles are normal caliber No extra-axial fluid collection noted Mild to moderate low density within the periventricular, deep and subcortical white matter probably i schemic changes secondary to small vessel disease. No fluid within the visualized sinuses or mastoids noted. IMPRESSION: No acute intracranial abnormality noted. If the patient's symptoms persist MRI of the brain would be recommended.
--- NOTE | 2023-11-22 15:52 | RAD REPORT ---
Procedure: Chest Single View History: Chest pain Comparison: February 2023 Findings: The lungs appear clear of acute infiltrate. The heart is moderately to markedly enlarged. Pacemaker leads in place. There may be small bilateral pleural effusions. IMPRESSION: No significant change since the prior exam.
[2023-11-22 16:11] LABS: Absolute Basophils 0.1 K/uL (0-0.5); Absolute Eosinophils 0.2 K/uL (0-0.5); Absolute Lymphocytes (CBC) 0.5 K/uL (0.7-4.9); Absolute Monocytes 0.9 K/uL (0.1-1.3); Absolute Neutrophil 6.9 K/uL (1.8-8.0); Eosinophils % 2.4 % (0-4.4); Hematocrit 33.6 % (39.6-49.0); Hemoglobin 10.6 g/dL (13.6-17.9); Lymphocytes % 5.4 % (15.3-44.8); MCH 27.8 pg (27.0-35.0); MCHC 31.7 g/dL (32.0-36.0); MCV 87.8 fL (80-100); MPV 6.8 fL (7.6-11.3); Monocytes % 10.1 % (3.3-12.3); Neutrophils % 81.1 % (41.7-73.7); Platelets 286 thou/uL (152-406); RBC Red Blood Cell Count 3.82 M/uL (4.33-5.43); Red Cell Distribution Width 19.9 % (12.1-15.2)
[2023-11-22 16:52] LABS: Albumin 3.1 g/dL (3.4-5.0); Albumin/Globulin Ratio 0.7 (1.1-1.8); Bilirubin Direct 0.4 mg/dL (0-0.2); Bilirubin Indirect, Calculated 0.3 mg/dL (0.2-0.8); Bilirubin Total 0.7 mg/dL (0.2-1.0); Globulin 4.2 g/dL (2.3-3.5); Magnesium 2.7 mg/dL (1.6-2.4); Protein, Total 7.3 g/dL (6.4-8.2); Troponin High Sensitivity 16.4 pg/mL (<58.9)
[2023-11-22 17:01] LABS: Anion Gap 14.9 mEq/L (5.0-15.0); Potassium 5.9 mEq/L (3.5-5.1)
--- NOTE | 2023-11-22 17:07 | ER ---
Nurse's Notes [facility] Name: Amando Grossman Age: 78 yrs Sex: Male : 1945 Arrival Date: 11/22/2023 Time: 15:10 Bed 15 Private MD: Diagnosis: End stage renal disease;Hyperkalemia;Altered mental status, unspecified Presentation: 11/21 15:12 Chief complaint: EMS states: [facility] toned out EMS, pt has shown up for dialysis three rs5 days in a row feeling extremely drowsy. Pt states he normally takes 10 mg Ambient prior to having dialysis but he normally doesn't feel this sleepy or tired. Pt has fallen twice in past 2 days and reports recently passing multiple dark tarry stools in the past two days. Last time pt was dialyses was 11/15/23. 15:12 Coronavirus screen: At this time, the client does not indicate any symptoms associated rs5 with coronavirus-19. Ebola Screen: No symptoms or risks identified at this time. Initial Sepsis Screen: Does the patient meet any 2 criteria? No. Patient's initial sepsis screen is negative. Does the patient have a suspected source of infection? No. Patient's initial sepsis screen is negative. Risk Assessment: Do you want to hurt yourself or someone else? Patient reports no desire to harm self or others. Onset of symptoms was November 22, 2023. 15:12 Method Of Arrival: EMS: [facility] rs5 15:12 Acuity: KELLY 3 rs5 Triage Assessment: 15:34 General: Appears in no apparent distress. comfortable, Behavior is calm, cooperative. rs5 Pain: Denies pain. Historical: - Allergies: 15:34 Iodine; topical is ok; rs5 15:34 PENICILLINS; rs5 15:34 Shellfish Containing Products; rs5 15:34 STATINS HMG COA REDUCTASE INHIBITORS; rs5 - PMHx: 15:34 Anxiety; CHF; Depression; DM; Dialysis <M and F; GERD; High Cholesterol; Hypertension; rs5 macular degeneration; Urinary Urgency; - PSHx: 15:34 Right above the knee amputation.; rs5 - Immunization history:: Adult Immunizations up to date. - Infectious Disease History:: Denies. - Social history:: Smoking status: Patient/guardian denies using tobacco, but has a distant history of tobacco abuse. Screenin:13 [facility] ED Fall Risk Assessment (Adult) History of falling in the last 3 months, rs5 including since admission Yes- fall prone (multiple falls) (3 pts) Confusion or Disorientation No (0 pts) Intoxicated or Sedated No (0 pts) Impaired Gait Yes (1 pt) Mobility Assist Device Used No (0 pt) Altered Elimination No (0 pt) Score/Fall Risk Level 0 - 2 = Low Risk Oriented to surroundings, Maintained a safe environment, Assessed \T\ reinforced patient's understanding of fall precautions, Provided non-skid footwear, Hourly rounding (assess needs \T\ fall precautionary measures) done. Abuse screen: Denies threats or abuse. Nutritional screening: No deficits noted. Tuberculosis screening: No symptoms or risk factors identified. Assessment: 15:13 General: Appears in no apparent distress. comfortable, Behavior is calm, cooperative, rs5 drowsy. Pain: Denies pain. Neuro: Level of Consciousness is awake, alert, obeys commands, Oriented to person, place, time, situation. Cardiovascular: Patient's skin is warm and dry. Respiratory: Airway is patent Respiratory effort is even, unlabored, Respiratory pattern is regular, symmetrical. GI: Abdomen is round non-distended, Abd is soft and non tender X 4 quads. : No signs and/or symptoms were reported regarding the genitourinary system. EENT: No signs and/or symptoms were reported regarding the EENT system. Derm: Skin is intact, Skin is pink, warm \T\ dry. small abrasion noted to top of left hand. Musculoskeletal: Amputation of Other: above right knee amputation. 16:20 Reassessment: Patient and/or family updated on plan of care and expected duration. Pain rs5 level reassessed. Patient is alert, oriented x 3, equal unlabored respirations, skin warm/dry/pink. 17:37 Reassessment: Patient and/or family updated on plan of care and expected duration. Pain rs5 level reassessed. Patient is alert, oriented x 3, equal unlabored respirations, skin warm/dry/pink. 18:24 Reassessment: No changes from previously documented assessment. rs5 18:47 Reassessment: to bedside for blood sugar check, provider notified of latest blood sugar rs5 readings, . 18:48 Reassessment: to bedside for med adm. rs5 19:00 General: Appears in no apparent distress. unkempt. cp4 19:00 General: Behavior is drowsy. Pain: Denies pain. Neuro: Level of Consciousness is obeys cp4 commands, lethargic, Oriented to person, place, time, situation. Cardiovascular: Patient's skin is warm and dry. Respiratory: Airway is patent Respiratory effort is even, unlabored. GI: No signs and/or symptoms were reported involving the gastrointestinal system. : No signs and/or symptoms were reported regarding the genitourinary system. EENT: No signs and/or symptoms were reported regarding the EENT system. Derm: No signs and/or symptoms reported regarding the dermatologic system. Musculoskeletal: Right AKA. Vital Signs: 15:12 BP 128 / 70; Pulse 64; Resp 17; Temp 98.4(O); Pulse Ox 91% on R/A; rs5 17:01 BP 128 / 70; Pulse 64; Resp 18; Pulse Ox 96% on 2 lpm NC; rs5 18:23 BP 123 / 75; Pulse 69; Resp 17; Pulse Ox 97% on 2 lpm NC; rs5 19:46 BP 128 / 70; Pulse 61; Resp 17; Pulse Ox 96% ; cp4 ED Course: 15:12 Patient arrived in ED. sb4 15:12 Ira Anna PA-C is PHCP. sb4 15:12 Travis Olivia MD is Attending Physician. sb4 15:13 Patient has correct armband on for positive identification. Placed in gown. Bed in low rs5 position. Call light in reach. Side rails up X2. 15:13 No provider procedures requiring assistance completed. rs5 15:14 Herrera Grande, ADRIEN is Primary Nurse. rs5 15:34 Triage completed. rs5 15:38 Head Brain Wo Cont CT In Process Unspecified. EDMS 15:44 XRAY Chest (1 view) In Process Unspecified. EDMS 17:06 Fernie Cueva MD is Hospitalizing Provider. sb4 18:24 Provided Education on: need for admit. rs5 18:24 Patient admitted, IV remains in place. rs5 19:33 Arm band placed on right wrist. Patient placed in an exam room, on a stretcher. cp4 Administered Medications: 17:10 Drug: Kayexalate PO 30 grams PO once Route: PO; rs5 18:05 Follow up: Response: No adverse reaction rs5 17:20 Drug: Albuterol Inhalation 2.5 mg Inhalation once Route: Inhalation; rs5 17:40 Follow up: Response: No adverse reaction rs5 17:20 Drug: Insulin Regular Human IVP 10 units IVP once {Co-Signature: aliza (Haley Henry RN).} Route: IVP; Site: right antecubital; 17:40 Follow up: Response: No adverse reaction rs5 17:20 Drug: D10 in Water IVP 250 ml IVP once Route: IVP; Site: right antecubital; rs5 17:40 Follow up: Response: No adverse reaction rs5 17:20 Drug: Calcium Gluconate IVPB 1 grams IVPB once over 60 mins; (mix in NS 100 mL) Route: rs5 IVPB; Infused Over: 60 mins; Site: right antecubital; 17:40 Follow up: Response: No adverse reaction rs5 18:48 Drug: D50W IVP 50 ml IVP once; (1 amp) Route: IVP; Site: right antecubital; rs5 Medication: 15:37 VIS not applicable for this client. rs5 Outcome: 17:06 Decision to Hospitalize by Provider. sb4 18:24 Admitted to ER Hold. Please see [facility] for further documentation. rs5 18:24 Condition: stable 18:24 Instructed on the need for admit, Demonstrated understanding of instructions, 19:00 Admitted to Med/surg accompanied by nurse, via stretcher, with oxygen, with chart, cp4 19:00 Condition: stable 19:00 Instructed on the need for admit, 20:29 Patient left the ED. cp4 Signatures: Dispatcher [employer] EDIra Scott, PAPearlC PAPearlC sb4 Herrera Grande RN RN [id number] Katie Smith cp4 Haley Henry RN mb9
--- NOTE | 2023-11-22 17:07 | EDPHYS ---
Physician Documentation [facility] Name: Amando Grossman Age: 78 yrs Sex: Male : 1945 Arrival Date: 11/22/2023 Time: 15:10 Bed 15 Private MD: ED Physician Travis Olivia HPI: 11/21 15:23 This 78 yrs old Male presents to ER via Unassigned with complaints of Altered Mental sb4 Status. 15:23 The patient presents with decreased responsiveness. Onset: The symptoms/episode sb4 began/occurred just prior to arrival. Possible causes: drug use, ambien. Associated signs and symptoms: The patient has no apparent associated signs or symptoms. Current symptoms: In the emergency department the patient's symptoms are unchanged from the initial presentation. Patient's baseline: Neuro:. Patient's baseline: Neuro: not alert, oriented x 3. The patient has been recently seen at the [facility] Emergency Department, this week, for unrelated complaints. Patient went for his regularly scheduled dialysis today but was sent away because he was too sleepy. He states that he took his Ambien prior to dialysis but states that that is not abnormal for him. Of note, he was not dialyzed on his regular scheduled Saturday because of a minor accident. Last dialyzed 4 days ago. Historical: - Allergies: 15:34 Iodine; topical is ok; rs5 15:34 PENICILLINS; rs5 15:34 Shellfish Containing Products; rs5 15:34 STATINS HMG COA REDUCTASE INHIBITORS; rs5 - PMHx: 15:34 Anxiety; CHF; Depression; DM; Dialysis <M and F; GERD; High Cholesterol; Hypertension; rs5 macular degeneration; Urinary Urgency; - PSHx: 15:34 Right above the knee amputation.; rs5 - Immunization history:: Adult Immunizations up to date. - Infectious Disease History:: Denies. - Social history:: Smoking status: Patient/guardian denies using tobacco, but has a distant history of tobacco abuse. ROS: 15:26 Constitutional: Negative for fever, chills, and weight loss, sb4 15:26 All other systems are negative, Exam: 15:26 Head/Face: Normocephalic, atraumatic. Eyes: Extra-ocular motions intact. Periorbital sb4 areas with no swelling, redness, or edema. Skin: Warm, dry with normal turgor. Normal color with no rashes, no lesions, and no evidence of cellulitis. 15:26 Cardiovascular: Regular rate and rhythm with a normal S1 and S2. Respiratory: Lungs have equal breath sounds bilaterally, clear to auscultation and percussion. No rales, rhonchi or wheezes noted. No increased work of breathing, no retractions or nasal flaring. 15:26 Constitutional: The patient appears sleepy, alert to verbal stimuli 15:26 Cardiovascular: Edema: ankle edema, that is moderate, 15:26 Musculoskeletal/extremity: right aka. 17:26 Abdomen/GI: Rectal exam: is unremarkable, rectal tone normal, Stool: normal, brown, sb4 Vital Signs: 15:12 BP 128 / 70; Pulse 64; Resp 17; Temp 98.4(O); Pulse Ox 91% on R/A; rs5 17:01 BP 128 / 70; Pulse 64; Resp 18; Pulse Ox 96% on 2 lpm NC; rs5 18:23 BP 123 / 75; Pulse 69; Resp 17; Pulse Ox 97% on 2 lpm NC; rs5 19:46 BP 128 / 70; Pulse 61; Resp 17; Pulse Ox 96% ; cp4 MDM: 15:12 Patient medically screened. sb4 17:05 Data reviewed: vital signs, nurses notes, EMS record, lab test result(s), EKG, sb4 radiologic studies, and as a result, I will admit patient. Consideration of Admission/Observation Patient was admitted/placed on observation. Counseling: I had a detailed discussion with the patient and/or guardian regarding the historical points, exam findings, and any diagnostic results supporting the discharge/admit diagnosis, lab results, radiology results, the need for further work-up and treatment in the hospital. 11/21 15:14 Order name: Basic Metabolic Panel; Complete Time: 17:02 sb4 11/21 15:14 Order name: CBC with Diff; Complete Time: 16:19 sb4 11/21 15:14 Order name: LFT's; Complete Time: 17:02 sb4 11/21 15:14 Order name: Magnesium; Complete Time: 17:02 sb4 11/21 15:14 Order name: NT PRO-BNP; Complete Time: 17:02 sb4 11/21 15:14 Order name: PT-INR sb4 11/21 15:14 Order name: Troponin HS; Complete Time: 17:02 sb4 11/21 15:17 Order name: UDS sb4 11/21 15:17 Order name: UAM sb4 11/21 17:23 Order name: Hemoglobin; Complete Time: 18:25 sb4 11/21 18:52 Order name: Glucose, Ancillary Testing; Complete Time: 18:52 EDMS 11/21 18:58 Order name: ABG; Complete Time: 20:16 sb4 11/21 19:08 Order name: Magnesium EDMS 11/21 19:08 Order name: Phosphorus EDMS 11/21 19:08 Order name: Urinalysis w/ reflexes EDMS 11/21 19:08 Order name: Basic Metabolic Panel EDMS 11/21 19:08 Order name: Basic Metabolic Panel EDMS 11/21 19:08 Order name: CBC with Automated Diff EDMS 11/21 19:08 Order name: CBC with Automated Diff EDMS 11/21 19:21 Order name: Glucose, Ancillary Testing; Complete Time: 19:23 EDMS 11/21 15:14 Order name: XRAY Chest (1 view); Complete Time: 15:53 sb4 11/21 15:14 Order name: Head Brain Wo Cont CT; Complete Time: 15:45 sb4 11/21 15:14 Order name: EKG; Complete Time: 15:15 sb4 11/21 19:09 Order name: CONS Physician Consult EDPR 11/21 15:14 Order name: Cardiac monitoring; Complete Time: 15:37 sb4 11/21 15:14 Order name: EKG - Nurse/Tech; Complete Time: 16:11 sb4 11/21 15:14 Order name: IV Saline Lock; Complete Time: 17:45 sb4 11/21 15:14 Order name: Labs collected and sent; Complete Time: 17:45 sb4 11/21 15:14 Order name: O2 Per Protocol; Complete Time: 15:37 sb4 11/21 15:14 Order name: O2 Sat Monitoring; Complete Time: 15:37 sb4 EC:08 Rate is 66 beats/min. Rhythm is regular, Normal Sinus Rhythm with Right bundle branch sb4 block. Left axis deviation noted. IL interval is normal at 136 msec. QRS interval is normal at 192 msec. QT interval is prolonged at 548 msec. No Q waves. T waves are Normal. No ST changes noted. Clinical impression: Abnormal EKG without significant change. Administered Medications: 17:10 Drug: Kayexalate PO 30 grams PO once Route: PO; rs5 18:05 Follow up: Response: No adverse reaction rs5 17:20 Drug: Albuterol Inhalation 2.5 mg Inhalation once Route: Inhalation; rs5 17:40 Follow up: Response: No adverse reaction rs5 17:20 Drug: Insulin Regular Human IVP 10 units IVP once {Co-Signature: aliza (Haley Henry rs5 [facility] RN).} Route: IVP; Site: right antecubital; 17:40 Follow up: Response: No adverse reaction rs5 17:20 Drug: D10 in Water IVP 250 ml IVP once Route: IVP; Site: right antecubital; rs5 17:40 Follow up: Response: No adverse reaction rs5 17:20 Drug: Calcium Gluconate IVPB 1 grams IVPB once over 60 mins; (mix in NS 100 mL) Route: rs5 IVPB; Infused Over: 60 mins; Site: right antecubital; 17:40 Follow up: Response: No adverse reaction rs5 18:48 Drug: D50W IVP 50 ml IVP once; (1 amp) Route: IVP; Site: right antecubital; rs5 Disposition Summary: 11/22/23 17:06 Hospitalization Ordered Notes: Hospitalization Status: Inpatient Admission sb4 Provider: Fernie Cueva [facility] sb4 Condition: Fair sb4 Problem: new sb4 Symptoms: are unchanged sb4 Bed/Room Type: Standard sb4 Room Assignment: 401(11/22/23 19:21) ty Diagnosis - End stage renal disease sb4 - Hyperkalemia sb4 - Altered mental status, unspecified sb4 Forms: - Medication Reconciliation Form sb4 - SBAR form sb4 - Leadership Thank You Letter sb4 Addendum: 11/27/2023 07:16 Co-signature as Attending Physician, Travis Olivia MD I reviewed the patient's care r t provided by the Advanced Practice Provider and agree with the diagnosis and treatment plan. Signatures: Dispatcher [employer] Ira Luna, PAPearlC PALnare sb4 Travis Olivia MD MD rt Herrera Grande RN RN rs5 Oz Bennett Mary Beth RN [id number] Corrections: (The following items were deleted from the chart) 11/21 19:21 17:06 sb4 ty
[2023-11-22] MEDS ORDERED: ALBUTEROL 2.5 MG/3 ML NEB SOL ONE (17:29)
[2023-11-22] MEDS ORDERED: INSULIN REGULAR (HUMAN) 100 UNIT/ML ONE (17:29)
[2023-11-22] MEDS ORDERED: NA CHLORIDE 0.9% 0 ML ONE (17:30)
[2023-11-22] MEDS ORDERED: D10W 250 ML IV ONE (17:31)
[2023-11-22] MEDS ORDERED: SOD POLYSTYREN SUL 15 GM/60 ML UCUP ONE (17:31)
[2023-11-22] MEDS ORDERED: CALCIUM GLUCONATE 1 GM IVPB 1 GM/50 ML BAG IV ONE (17:32)
[2023-11-22] MEDS ORDERED: D50W 25 GM/50 ML SYRINGE IV ONE (18:50)
--- NOTE | 2023-11-22 19:08 | P.HP ---
Certification for Inpatient Patient admitted to: Inpatient With expected LOS: >2 Midnights Practitioner: I am a practitioner with admitting privileges, knowledge of patient current condition, hospital course, and medical plan of care. Services: Services provided to patient in accordance with Admission requirements found in Title 42 Section 412.3 of the Code of Federal Regulations Patient History Date of Service: 11/22/23 Reason for admission: AMS History of Present Illness: Patient is a 78-year-old male with a past medical history of ESRD on hemodialysis. He presented to the ER via EMS chief complaint of altered mental status. Patient was at the dialysis center and they were unable to dialyze him due altered mental status. He reportedly took some Ambien before his dialysis. During my evaluation, patient was unable to provide history due to altered mental status. He was very somnolent. I was able to elicit some grimacing with sternal rub. Workup revealed a hemoglobin of 10.5 which remained stable. Rectal exam done by the ER physician yielded brown stool. Patient had a elevated potassium at 5.9. He received hyperkalemia cocktail which included Kayexalate, calcium gluconate, insulin IV/D50. Daytime provider has reached out to nephrology for continued dialysis. Patient has not had dialysis since Saturday. Allergies Iodinated Contrast Media [Iodinated Contrast- Oral and IV Dye] Allergy (Verified 08/16/23 23:13) Nausea/Vomiting/Diarrhea Penicillins Allergy (Verified 08/16/23 23:13) Hives shellfish derived Allergy (Verified 08/16/23 23:13) Nausea/Vomiting/Diarrhea Home Medications: Zolpidem Tartrate [Ambien*] 10 mg PO BEDTIME PRN PRN 01/10/17 Losartan Potassium 50 tab PO DAILY 08/14/22 Sertraline [Zoloft*] 50 mg PO DAILY 09/11/22 Gabapentin 300 mg PO BEDTIME 04/29/23 Trazodone [Desyrel*] 150 mg PO BEDTIME 04/29/23 Ticagrelor [Brilinta*] 90 mg PO DAILY 07/23/23 Fluticasone [Flonase 50MCG Nasal [place]*] 3 spray IH DAILY 08/01/23 Albuterol Neb [Proventil 0.083% Neb Soln] 2.5 mg NEB Q6HP PRN #120 amp 08/06/23 Ascorbic Acid [Vitamin C] 500 mg PO DAILY #30 tab 08/06/23 Aspirin [Aspirin EC 81 MG] 81 mg PO DAILY #30 tab 08/06/23 Atorvastatin Calcium [Lipitor] 80 mg PO BEDTIME #30 tab 08/06/23 Cefpodoxime Proxetil [Vantin] 200 mg PO DAILY #5 tab 08/06/23 Epoetin [Retacrit] 10,000 unit IV EVERY HD vial 08/06/23 Folic Acid 1 mg PO DAILY #30 tab 08/06/23 Furosemide [Lasix] 80 mg PO DAILY #30 tab 08/06/23 Ipratropium Neb [Atrovent*] 0.5 mg NEB [id number] PRN #120 amp 08/06/23 Iron Polysaccharide Complex [Ferric X-150] 150 mg PO DAILY #30 tab 08/06/23 Oxycodone HCl/Acetaminophen [Percocet 5/325 Tab*] 1 tab PO Q4H PRN #20 tab 08/06/23 Polyethylene Glycol 3350 [Miralax] 17 gm PO DAILY #30 packet 08/06/23 Sennosides [Senokotxtra] 17.2 mg PO DAILY #60 tab 08/06/23 Tamsulosin [Flomax*] 0.8 mg PO BEDTIME #60 cap 08/06/23 - Past Medical/Surgical History Diabetic: No -: ESRD on HD MWF -: Hyperlipidemia -: GERD -: Hypertension -: Depression/Anxiety -: Macular Degeneration -: cardiac stent -: RT AKA -: [id number] PPM Psychosocial/ Personal History: Patient lives at home with his family. - Family History Father -: Heart disease Mother -: Lung disease - Social History Alcohol use: No CD- Drugs: No Caffeine use: Yes Physical Examination - Physical Exam General: Confused, Unresponsive, Obese Respiratory: Clear to auscultation bilaterally, Normal air movement, Diminished Cardiovascular: Normal pulses, Regular rate/rhythm, Normal S1 S2, Systolic murmur Musculoskeletal: Other (R AKA) - Studies Laboratory Data (last 24 hrs) 11/22/23 11/22/23 11/22/23 18:10 16:00 16:00 WBC 8.50 Hgb 10.5 L 10.6 L Hct 33.6 L Plt Count 286 Sodium 133 L Potassium 5.9 H BUN 68 H Creatinine 6.84 H Glucose 74 Magnesium 2.7 H Total Bilirubin 0.7 AST 35 ALT 25 Alkaline Phosphatase 164 H Assessment and Plan - Problems (Diagnosis) (1) Acute encephalopathy Current Visit: Yes Status: Acute (2) Anemia in chronic kidney disease Current Visit: No Status: Acute (3) CAD (coronary artery disease) Current Visit: No Status: Acute (4) Chronic diastolic heart failure Current Visit: No Status: Acute (5) End stage chronic kidney disease Current Visit: No Status: Chronic (6) Hemodialysis patient Current Visit: No Status: Chronic (7) Hyperlipidemia Current Visit: No Status: Chronic Qualifiers: Hyperlipidemia type: unspecified Qualified Code(s): E78.5 - Hyperlipidemia, unspecified (8) Hypertension Current Visit: No Status: Chronic Qualifiers: Hypertension type: primary hypertension Qualified Code(s): I10 - Essential (primary) hypertension - Plan Assessment Patient is a 78-year-old male with morbid obesity, hypertension, chronic diastolic CHF and ESRD on hemodialysis. He was brought in from the dialysis center for evaluation of altered mental status. He reportedly took some Ambien before his dialysis. Workup was unremarkable so far including CT head. He had mild lab abnormalities including a hemoglobin of 10.5 and potassium of 5.9. He has received potassium treatment in the ER. Acute encephalopathy Hyperkalemia Hypoglycemia ESRD on hemodialysisnoncompliant Chronic diastolic CHF Morbid obesity Hypertension Plan: Will admit inpatient with telemetry Will check for ABG to rule out drug-induced CO2 narcosis Will start dextrose infusion to avoid hypoglycemia Patient has received potassium treatment Will repeat BMP Nephrology has been consulted for routine dialysis Patient will have to be full code for now Will keep n.p.o. to avoid aspiration - Advance Directives Does patient have a Living Will: No Does patient have a Durable POA for Healthcare: Yes
[2023-11-22 20:15] LABS: Arterial Blood Carboxyhemoglob 1.1 % (0-1.5); Blood Gas Oxyhemoglobin 94.6 % (94-97); Blood Gas THB 10.3 g/dl (12-18); Blood O2 Saturation 97.5 % (92-98.5)
[2023-11-22] MEDS: ALBUTEROL 2.5 MG/3 ML NEB SOL NEB SCH (20:52)
[2023-11-22] MEDS: IPRATROPIUM BROM 0.5MG/2.5ML NEB SCH (20:52)
[2023-11-22] MEDS: FUROSEMIDE 40 MG TABLET PO ONE (21:10)
[2023-11-22] MEDS: THIAMINE 200 MG/2 ML INJ IVP SCH (21:11)
[2023-11-22] MEDS: DEXTROSE 10%-WATER 500 ML IV SCH (21:22)
[2023-11-22 21:27] VITALS: BMI 28.1
[2023-11-23 00:50] LABS: PT Prothrombin Time 15.2 SECONDS (9.4-12.5); Protime INR 1.37
[2023-11-23 01:15] LABS: Magnesium 2.6 mg/dL (1.6-2.4); Phosphorus 7.6 mg/dL (2.5-4.9)
[2023-11-23 06:47] LABS: Absolute Basophils 0.1 K/uL (0-0.5); Absolute Eosinophils 0.3 K/uL (0-0.5); Absolute Lymphocytes (CBC) 0.6 K/uL (0.7-4.9); Absolute Monocytes 1.1 K/uL (0.1-1.3); Absolute Neutrophil 6.8 K/uL (1.8-8.0); Eosinophils % 3.2 % (0-4.4); Hematocrit 34.1 % (39.6-49.0); Hemoglobin 10.8 g/dL (13.6-17.9); Lymphocytes % 6.3 % (15.3-44.8); MCH 27.8 pg (27.0-35.0); MCHC 31.7 g/dL (32.0-36.0); MCV 87.8 fL (80-100); MPV 7.1 fL (7.6-11.3); Monocytes % 12.8 % (3.3-12.3); Neutrophils % 76.7 % (41.7-73.7); Nucleated Red Blood Cells % 0.1 % (0-0); Platelets 272 thou/uL (152-406); RBC Red Blood Cell Count 3.89 M/uL (4.33-5.43)
--- NOTE | 2023-11-23 07:04 | P.PN ---
Date of Service: 11/23/23 Subjective: More awake / alert. mentation improving. Oriented x3. [place] like his normal self prior to going to dialysis reports dark stool at home for ~2-3 days States he initially had 2 bowel movements that were red, then the subsequent bowel movements were dark/black States he ate a lot of strawberries and takes iron, which she attributed the color of his stools took ambien prior to dialysis. States he normally takes ambien but doesn't normally feel this tired/sleepy. didn't eat anything day of dialysis which is not typical Asking to receive his Ambien 10 mg this evening ROS: 10 point ROS as noted above, otherwise negative Physical Exam: GEN: NAD, alert, oriented x3 HEENT: Normal conjunctiva, sclera anicteric, CV: Regular rate and rhythm, trace edema, systolic murmur Pulm: Nonlabored respirations on 2L NC, diminished bilaterally at bases ABD: soft, nontender, nondistended Integumentary: No rashes MSK: Right AKA Neuro: Normal speech, normal affect Problem List: Acute encephalopathy, improved ESRD on HD Hyperkalemia, improved chronic combined systoic/diastolic CHF Hx CAD s/p PCI Hypertension Hyperlipidemia Depression/Anxiety/Insomnia BPH / urinary retention hx macular degeneration Hx iron deficiency anemia hx PAD Acute encephalopathy, resolved ESRD on HD Hyperkalemia, improved on admission, presents with altered mentation, confusion, decreased responsiveness Possibly medication induced secondary to ambien. Reports he took ambien prior to dialysis and hadn't eaten anything all day. states he normally takes ambien prior to dialysis but doesn't normally feel this tired/sleepy/confused. Unable to be dialyzed Saturday d/t confusion and increased somnolence. Last dialysis prior to admission was Saturday. Reports hes fallen twice in the last 2 days and reports multiple dark tarry stools in last 2 days has history iron deficiency. Has been on iron supplementation for "long time" Reports 2 red BMs then dark blackish stool at home rectal exam in ED noted brown stool. Hgb stable. No evidence of bleed at this time CXR (11/21): Mod-marked cardiomegaly. Maybe small bilateral pleural effusions CT head (11/21): no acute findings. Creatinine 6.84, BNP 137k, Potassium 5.9 on admission s/p Kayexalate, calcium gluconate, insulin IV/D50 in ED Nephrology consulted Dialysis per nephrology - anticipate dialysis today Duonebs Advance diet, DC dextrose fluids chronic combined systoic/diastolic CHF Hx CAD s/p PCI Hypertension Hyperlipidemia Depression/Anxiety/Insomnia BPH / urinary retention hx macular degeneration Hx iron deficiency anemia hx PAD confirm home meds, restart as appropriate Patient was hospitalized in outside hospital since his last admission here, does not recall his medications Unsure if medications were changed Code: Full Dispo: Home ~1-2 days Pending dialysis, nephro recs Time Spent Managing Pts Care (In Minutes): 51
[2023-11-23 07:07] LABS: Albumin 2.8 g/dL (3.4-5.0); Albumin/Globulin Ratio 0.7 (1.1-1.8); Bilirubin Total 0.6 mg/dL (0.2-1.0); Globulin 4.1 g/dL (2.3-3.5); Protein, Total 6.9 g/dL (6.4-8.2)
[2023-11-23] MEDS ORDERED: FLU (Fluarix Triv) TS24-25(6MOS UP)/PF 45 MCG/0.5 ML Syringe IM ONE (10:30)
--- NOTE | 2023-11-23 13:19 | P.CNS ---
Date of Consult: 11/23/23 Reason for Consult: ESRD Requesting Physician: Fernie Cueva Chief Complaint: AMS History of Present Illness: 78-year-old male with a past medical history of ESRD on hemodialysis at [facility] Saturday & Saturday, who p/w AMS, admitted for further eval & mngt. He has hyperkalemia w/ serum K 5.9 on adm. He is sked to receive HD this afternoon. Allergies Iodinated Contrast Media [Iodinated Contrast- Oral and IV Dye] Allergy (Verified 08/16/23 23:13) Nausea/Vomiting/Diarrhea Penicillins Allergy (Verified 08/16/23 23:13) Hives shellfish derived Allergy (Verified 08/16/23 23:13) Nausea/Vomiting/Diarrhea Home Medications: Zolpidem Tartrate [Ambien*] 10 mg PO BEDTIME PRN PRN 01/10/17 Losartan Potassium 50 tab PO DAILY 08/14/22 Sertraline [Zoloft*] 50 mg PO DAILY 09/11/22 Gabapentin 300 mg PO BEDTIME 04/29/23 Trazodone [Desyrel*] 150 mg PO BEDTIME 04/29/23 Ticagrelor [Brilinta*] 90 mg PO DAILY 07/23/23 Fluticasone [Flonase 50MCG Nasal [place]*] 3 spray IH DAILY 08/01/23 Albuterol Neb [Proventil 0.083% Neb Soln] 2.5 mg NEB Q6HP PRN #120 amp 08/06/23 Ascorbic Acid [Vitamin C] 500 mg PO DAILY #30 tab 08/06/23 Aspirin [Aspirin EC 81 MG] 81 mg PO DAILY #30 tab 08/06/23 Atorvastatin Calcium [Lipitor] 80 mg PO BEDTIME #30 tab 08/06/23 Cefpodoxime Proxetil [Vantin] 200 mg PO DAILY #5 tab 08/06/23 Epoetin [Retacrit] 10,000 unit IV EVERY HD vial 08/06/23 Folic Acid 1 mg PO DAILY #30 tab 08/06/23 Furosemide [Lasix] 80 mg PO DAILY #30 tab 08/06/23 Ipratropium Neb [Atrovent*] 0.5 mg NEB [id number] PRN #120 amp 08/06/23 Iron Polysaccharide Complex [Ferric X-150] 150 mg PO DAILY #30 tab 08/06/23 Oxycodone HCl/Acetaminophen [Percocet 5/325 Tab*] 1 tab PO Q4H PRN #20 tab 08/06/23 Polyethylene Glycol 3350 [Miralax] 17 gm PO DAILY #30 packet 08/06/23 Sennosides [Senokotxtra] 17.2 mg PO DAILY #60 tab 08/06/23 Tamsulosin [Flomax*] 0.8 mg PO BEDTIME #60 cap 08/06/23 - Past Medical/Surgical History Diabetic: No -: ESRD on HD MWF -: Hyperlipidemia -: GERD -: Hypertension -: Depression/Anxiety -: Macular Degeneration -: cardiac stent -: RT AKA -: [id number] PPM Psychosocial/ Personal History: Patient lives at home with his family. - Family History Father Medical History: Heart disease Mother Medical History: Lung disease - Social History Smoking Status: Former smoker Alcohol use: No CD- Drugs: No Caffeine use: Yes Place of Residence: Home Review of Systems Other: Unable to obtain due to AMS Physical Examination Temp Pulse Resp BP Pulse Ox 97.6 F 63 20 124/65 97 11/23/23 12:00 11/23/23 12:00 11/23/23 12:00 11/23/23 12:00 11/23/23 12:00 General: Other (chronically ill-appearing) HEENT: Atraumatic, Normocephalic Neck: Supple, JVD not distended Respiratory: Other (symmetric chest expansion) Cardiovascular: No rubs, No murmurs Gastrointestinal: Soft and benign, No guarding Musculoskeletal: No clubbing Integumentary: No warmth Neurological: Normal tone, Other (AMS) Urinary: Other (no bladder distention) External genitalia: Deferred Rectal: Deferred Laboratory Data (last 24 hrs) 11/22/23 11/22/23 11/22/23 18:10 16:00 16:00 WBC 8.50 Hgb 10.5 L 10.6 L Hct 33.6 L Plt Count 286 PT INR Sodium 133 L Potassium 5.9 H BUN 68 H Creatinine 6.84 H Glucose 74 Magnesium 2.7 H Total Bilirubin 0.7 AST 35 ALT 25 Alkaline Phosphatase 164 H 11/22/23 15:14 WBC Hgb Hct Plt Count PT 15.2 H INR 1.37 Sodium Potassium BUN Creatinine Glucose Magnesium Total Bilirubin AST ALT Alkaline Phosphatase Conclusions/Impression: # ESRD on HD q Saturday & Saturday Hx of BPH & urinary retention HD today, then Saturday Renal diet Renal vit po daily # Hyperkalemia Received Kayexalate HD as above # AMS likely 2/2 medication/ambien Head CT no acute pathology Per other services # Chronic combined systolic and diastolic heart failure HD as above # History of CAD status post PCI, PAD, Htn Continue cardiac prudent medications # Anemia Monitor CBC # Renal osteodystrophy Monitor serum calcium and phosphorus
[2023-11-23 16:21] VITALS: O2SAT 96
[2023-11-23 19:41] LABS: Hepatitis B surface AG Interp. Nonreactive (Nonreactive)
[2023-11-23 19:42] LABS: HBsAG Nonreactive Report Report
[2023-11-23] MEDS: ZOLPIDEM TARTRATE 10 MG TABLET PO PRN (21:50)
[2023-11-24 04:41] LABS: Specific Gravity 1.014 (1.005-1.030); Sqamous Epithelial <5 /HPF (None Seen); Urine Bacteria <20 /HPF (<20); Urine Bilirubin NEGATIVE (Negative); Urine Blood 2+ (Negative); Urine Clarity Extremely Turbid (Clear); Urine Color Light-Orange (Yellow); Urine Culture Reflex Order REFLEXED; Urine Glucose NEGATIVE (Negative); Urine Ketones NEGATIVE (Negative); Urine Micro Reflex YN NO BILL MICROSCOPIC; Urine Nitrite NEGATIVE (Negative); Urine Protein 2+ (Negative); Urine RBC >50 /HPF (None Seen); Urine Urobilinogen Normal (Normal); Urine WBC >50 /HPF (<5); Urine WBC Clump Many /HPF (None Seen)
[2023-11-24 05:07] LABS: Barbiturates NEGATIVE (NEGATIVE); Benzodiazepines NEGATIVE (NEGATIVE); Cocaine NEGATIVE (NEGATIVE); METHAMPHETAM NEGATIVE (NEGATIVE); Methadone NEGATIVE (NEGATIVE); Opiates NEGATIVE (NEGATIVE); Phencyclidine NEGATIVE (NEGATIVE); THC Cannibis NEGATIVE (NEGATIVE)
[2023-11-24 05:56] LABS: Hematocrit 32.3 % (39.6-49.0); Hemoglobin 10.2 g/dL (13.6-17.9); MCH 27.6 pg (27.0-35.0); MCHC 31.6 g/dL (32.0-36.0); MCV 87.3 fL (80-100); MPV 6.8 fL (7.6-11.3); Platelets 289 thou/uL (152-406); RBC Red Blood Cell Count 3.69 M/uL (4.33-5.43); Red Cell Distribution Width 19.6 % (12.1-15.2)
[2023-11-24 06:12] LABS: Albumin 2.8 g/dL (3.4-5.0); Albumin/Globulin Ratio 0.7 (1.1-1.8); Anion Gap 9.6 mEq/L (5.0-15.0); Bilirubin Total 0.6 mg/dL (0.2-1.0); Globulin 3.8 g/dL (2.3-3.5); Magnesium 2.3 mg/dL (1.6-2.4); Potassium 3.6 mEq/L (3.5-5.1); Protein, Total 6.6 g/dL (6.4-8.2)
[2023-11-24] MEDS: ONDANSETRON 4 MG/2 ML VIAL IV PRN (10:45)
--- NOTE | 2023-11-24 11:22 | P.PN ---
Date of Service: 11/24/23 Subjective: feeling better today had dialysis yesterday more awake/alert today. Mentation improving now reports taking gabapentin in addition to ambien prior to episode. States he normally only takes ambien prior to HD. denies any new problems ROS: 10 point ROS as noted above, otherwise negative Physical Exam: GEN: NAD, alert, oriented x3 HEENT: Normal conjunctiva, sclera anicteric, CV: Regular rate and rhythm, trace edema, systolic murmur Pulm: Nonlabored respirations on 2L NC, diminished bilaterally at bases ABD: soft, nontender, nondistended Integumentary: No rashes MSK: Right AKA Neuro: Normal speech, normal affect Problem List: Acute encephalopathy, improved ESRD on HD Hyperkalemia, improved chronic combined systoic/diastolic CHF (on 3L home O2) Hx CAD s/p PCI Hypertension Hyperlipidemia Depression/Anxiety/Insomnia BPH / urinary retention hx macular degeneration Hx iron deficiency anemia hx PAD Acute encephalopathy, resolved ESRD on HD Hyperkalemia, improved on admission, presents with altered mentation, confusion, decreased responsiveness Suspect medication induced. Patient reports taking both ambien and gabapentin prior to HD and hadn't eaten anything all day. states he normally takes ambien prior to dialysis but doesn't normally feel this tired/sleepy/confused. Normally doesn't take gabapentin before HD. Unable to be dialyzed Saturday d/t confusion and increased somnolence. Last dialysis prior to admission was Saturday. Reports hes fallen twice in the last 2 days and reports multiple dark tarry stools in last 2 days has history iron deficiency. Has been on iron supplementation for "long time" Reports 2 red BMs then dark blackish stool at home rectal exam in ED noted brown stool. Hgb stable. No evidence of bleed at this time CXR (11/21): Mod-marked cardiomegaly. Maybe small bilateral pleural effusions CT head (11/21): no acute findings. Creatinine 6.84, BNP 137k, Potassium 5.9 on admission s/p Kayexalate, calcium gluconate, insulin IV/D50 in ED Nephrology consulted Dialysis per nephrology - anticipate dialysis tomorrow Continue oxygen supplementation as needed; uses O2 at home. Renal diet; appetite improving chronic combined systoic/diastolic CHF (on 3L home O2) Hx CAD s/p PCI Hypertension Hyperlipidemia Depression/Anxiety/Insomnia BPH / urinary retention hx macular degeneration Hx iron deficiency anemia hx PAD confirm home meds, restart as appropriate Patient was hospitalized in outside hospital since his last admission here, does not recall his medications Unsure if medications were changed resume home plavix, sertraline, gabapentin; patient confirmed he still takes these medications. Code: Full Dispo: Home ~1 day Anticipate dc tomorrow after dialysis Time Spent Managing Pts Care (In Minutes): 51
[2023-11-24 12:18] VITALS: BP 113/59; TEMP 98.1
--- NOTE | 2023-11-25 06:40 | P.DS ---
Admission Date: 11/22/23 Discharge Date: 11/24/23 Disposition: ROUTINE DISCHARGE Discharge Condition: GOOD Reason for Admission: AMS Consultations: Nephrology - Dr. Carrizales, Dr. Gaston Brief History of Present Illness: 78yo M, PMH: ESRD on hemodialysis. He presented to the ER via EMS chief complaint of altered mental status. Patient was at the dialysis center and they were unable to dialyze him due altered mental status. He reportedly took some Ambien before his dialysis. During my evaluation, patient was unable to provide history due to altered mental status. He was very somnolent. I was able to elicit some grimacing with sternal rub. Workup revealed a hemoglobin of 10.5 which remained stable. Rectal exam done by the ER physician yielded brown stool. Patient had a elevated potassium at 5.9. He received hyperkalemia cocktail which included Kayexalate, calcium gluconate, insulin IV/D50. Daytime provider has reached out to nephrology for continued dialysis. Patient has not had dialysis since Saturday. 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 Patient was unable to be dialyzed Saturday as staff reported patient was slurring words and noted some decreased responsiveness, increased somnolence. Suspect medication induced secondary to ambien/gabapentin use. He reports taking both ambien and gabapentin prior to HD on saturday and hadn't eaten anything all day that day. He states he normally takes ambien prior to HD and doesn't feel this tired/sleepy/confused. However this time he took gabapentin in addition to ambien which is abnormal for him which could've led to his decreased responsiveness, confusion. Upon arrival to ED he was noted to be sleepy / somnolent, but would respond to questions seemingly appropriate and appeared disheveled. Mentation and confusion improved shortly after admission. Chest xray, CT head were both negative for any acute findings. He was feeling back to his normal self by the following morning. Nephrology was consulted for assistance with dialysis. Patient was able to tolerate dialysis 11/22 without issues and labs improved. Patient was feeling better, confusion resolved, mentation improved, and was deemed stable for discharge. He denied any other / new symptoms. No fever, no leukocytosis, no evidence of infection. During his hospitalization, patient reported multiple black tarry stools at home prior to admission. There were no obvious bleeds or black tarry stools seen during this hospitalization. Rectal exam in ED noted brown stool. Hemoglobin remained stable in 10s throughout hospitalization. Recommend following up with PCP/GI for further discussion. Medications: no change in medications. Continue home medications as previously prescribed. continue plavix Avoid taking ambien / gabapentin together. Follow up: PCP 3-5 days Nephrology 1-2 weeks Please call to schedule / confirm appointments Physical Exam: GEN: NAD, alert, oriented x3 HEENT: Normal conjunctiva, sclera anicteric, CV: Regular rate and rhythm, no edema, systolic murmur Pulm: Nonlabored respirations on 2L NC, clear bilaterally ABD: soft, nontender, nondistended MSK: Right AKA Neuro: Normal speech, normal affect Vital Signs/Physical Exam: Temp Pulse Resp BP Pulse Ox 98.1 F 69 24 H 113/59 L 99 11/24/23 12:00 11/24/23 12:00 11/24/23 12:00 11/24/23 12:00 11/24/23 12:00 Laboratory Data at Discharge: WBC 9.20 thou/uL (4.3-10.9) 11/24/23 05:12 Hgb 10.2 g/dL (13.6-17.9) L 11/24/23 05:12 Hct 32.3 % (39.6-49.0) L 11/24/23 05:12 Plt Count 289 thou/uL (152-406) 11/24/23 05:12 PT 15.2 SECONDS (9.4-12.5) H 11/22/23 15:14 INR 1.37 11/22/23 15:14 Sodium 135 mEq/L (136-145) L 11/24/23 05:12 Potassium 3.6 mEq/L (3.5-5.1) D 11/24/23 05:12 BUN 42 mg/dL (7-18) H 11/24/23 05:12 Creatinine 4.68 mg/dL (0.70-1.30) H 11/24/23 05:12 Glucose 88 mg/dL (74-106) 11/24/23 05:12 Phosphorus 7.6 mg/dL (2.5-4.9) H 11/22/23 23:00 Magnesium 2.3 mg/dL (1.6-2.4) 11/24/23 05:12 Total Bilirubin 0.6 mg/dL (0.2-1.0) 11/24/23 05:12 AST 36 U/L (15-37) 11/24/23 05:12 ALT 26 U/L (16-61) 11/24/23 05:12 Alkaline Phosphatase 151 U/L (45-117) H 11/24/23 05:12 Home Medications: Zolpidem Tartrate [Ambien*] 10 mg PO BEDTIME PRN PRN 01/10/17 Losartan Potassium 50 tab PO DAILY 08/14/22 Sertraline [Zoloft*] 50 mg PO DAILY 09/11/22 Gabapentin 300 mg PO BEDTIME 04/29/23 Trazodone [Desyrel*] 150 mg PO BEDTIME 04/29/23 Ticagrelor [Brilinta*] 90 mg PO DAILY 07/23/23 Fluticasone [Flonase 50MCG Nasal [place]*] 3 spray IH DAILY 08/01/23 Albuterol Neb [Proventil 0.083% Neb Soln] 2.5 mg NEB Q6HP PRN #120 amp 08/06/23 Ascorbic Acid [Vitamin C] 500 mg PO DAILY #30 tab 08/06/23 Aspirin [Aspirin EC 81 MG] 81 mg PO DAILY #30 tab 08/06/23 Atorvastatin Calcium [Lipitor] 80 mg PO BEDTIME #30 tab 08/06/23 Cefpodoxime Proxetil [Vantin] 200 mg PO DAILY #5 tab 08/06/23 Epoetin [Retacrit] 10,000 unit IV EVERY HD vial 08/06/23 Folic Acid 1 mg PO DAILY #30 tab 08/06/23 Furosemide [Lasix] 80 mg PO DAILY #30 tab 08/06/23 Ipratropium Neb [Atrovent*] 0.5 mg NEB [id number] PRN #120 amp 08/06/23 Iron Polysaccharide Complex [Ferric X-150] 150 mg PO DAILY #30 tab 08/06/23 Oxycodone HCl/Acetaminophen [Percocet 5/325 Tab*] 1 tab PO Q4H PRN #20 tab 08/06/23 Polyethylene Glycol 3350 [Miralax] 17 gm PO DAILY #30 packet 08/06/23 Sennosides [Senokotxtra] 17.2 mg PO DAILY #60 tab 08/06/23 Tamsulosin [Flomax*] 0.8 mg PO BEDTIME #60 cap 08/06/23 Physician Discharge Instructions: Physician discharge instructions: Patient presented with altered mentation, confusion. Patient was unable to be dialyzed Saturday as staff reported patient was slurring words and noted some decreased responsiveness, increased somnolence. Suspect medication induced secondary to ambien/gabapentin use. He reports taking both ambien and gabapentin prior to HD on saturday and hadn't eaten anything all day that day. He states he normally takes ambien prior to HD and doesn't feel this tired/sleepy/confused. However this time he took gabapentin in addition to ambien which is abnormal for him which could've led to his decreased responsiveness, confusion. Upon arrival to ED he was noted to be sleepy / somnolent, but would respond to questions seemingly appropriate and appeared disheveled. Mentation and confusion improved shortly after admission. Chest xray, CT head were both negative for any acute findings. He was feeling back to his normal self by the following morning. Nephrology was consulted for assistance with dialysis. Patient was able to tolerate dialysis 11/22 without issues and labs improved. Patient was feeling better, confusion resolved, mentation improved, and was deemed stable for discharge. He denied any other / new symptoms. No fever, no leukocytosis, no evidence of infection. During his hospitalization, patient reported multiple black tarry stools at home prior to admission. There were no obvious bleeds or black tarry stools seen during this hospitalization. Rectal exam in ED noted brown stool. Hemoglobin remained stable in 10s throughout hospitalization. Recommend following up with PCP/GI for further discussion. Medications: no change in medications. Continue home medications as previously prescribed. continue plavix Avoid taking ambien / gabapentin together. Follow up: PCP 3-5 days Nephrology 1-2 weeks Please call to schedule / confirm appointments Followup: NONE,NONE [Primary Care Provider] - Time spent managing pt's care (in minutes): 45
== END 2023-11-24 14:33 | disposition home or self-care (01) | DRG 91 ==
LOC: ER 15:10 → ERHOLD 19:06 → 4TH 19:46
PROVIDERS: ADMIT Internal Medicine; ATTEND Hospitalist
PROC: 4A033R1 Measurement of Arterial Saturation, Peripheral, Percutaneous Approach (ICD-10-PCS; principal; 2023-11-22)
PROC: 5A1D70Z Performance of Urinary Filtration, Intermittent, Less than 6 Hours Per Day (ICD-10-PCS; 2023-11-23)
DX: G92.8 Other toxic encephalopathy (principal); N18.6 End stage renal disease; I13.2 Hypertensive heart and chronic kidney disease with heart failure and with stage 5 chronic kidney disease, or end stage renal disease; I50.42 Chronic combined systolic (congestive) and diastolic (congestive) heart failure; E11.22 Type 2 diabetes mellitus with diabetic chronic kidney disease; E11.51 Type 2 diabetes mellitus with diabetic peripheral angiopathy without gangrene; E11.649 Type 2 diabetes mellitus with hypoglycemia without coma; D63.1 Anemia in chronic kidney disease; F32.A Depression, unspecified; E87.5 Hyperkalemia; F41.9 Anxiety disorder, unspecified; N25.0 Renal osteodystrophy; G47.00 Insomnia, unspecified; E78.00 Pure hypercholesterolemia, unspecified; E66.01 Morbid (severe) obesity due to excess calories; N40.1 Benign prostatic hyperplasia with lower urinary tract symptoms; R33.8 Other retention of urine; K21.9 Gastro-esophageal reflux disease without esophagitis; I25.10 Atherosclerotic heart disease of native coronary artery without angina pectoris; T42.6X5A Adverse effect of other antiepileptic and sedative-hypnotic drugs, initial encounter; Z88.0 Allergy status to penicillin; Z99.2 Dependence on renal dialysis; Z95.5 Presence of coronary angioplasty implant and graft; Z79.82 Long term (current) use of aspirin; Z68.28 Body mass index [BMI] 28.0-28.9, adult; Z91.013 Allergy to seafood; Z87.891 Personal history of nicotine dependence; Z79.899 Other long term (current) drug therapy; Z89.611 Acquired absence of right leg above knee; Z91.048 Other nonmedicinal substance allergy status; Z91.158 Patient's noncompliance with renal dialysis for other reason
CPT/HCPCS: 36415; 36600; 70450; 71045; 80048; 80053; 80076; 80307; 81001; 82805; 82947; 83735; 83880; 84100; 84484; 85018; 85025; 85027; 85610; 87040; 87077; 87086; 87088; 87186; 87340; 90935; 93005; 94640; 94760; J0612; J1644; J2405; J3411; J7613; J7644

== ENCOUNTER 2024-01-29 18:45 | Emergency (ER) | payer OTHER, BC ==
[2024-01-29] MEDS ORDERED: ALBUTEROL 2.5 MG/3 ML NEB SOL ONE ×2 (19:18→20:26)
[2024-01-29 19:24] LABS: Absolute Eosinophils 0.4 K/uL (0-0.5); Absolute Lymphocytes (CBC) 0.3 K/uL (0.7-4.9); Absolute Monocytes 0.7 K/uL (0.1-1.3); Absolute Neutrophil 5.5 K/uL (1.8-8.0); Basophils % 0.6 % (0-1.3); Eosinophils % 5.2 % (0-4.4); Hematocrit 28.1 % (39.6-49.0); Hemoglobin 9.3 g/dL (13.6-17.9); MCH 29.7 pg (27.0-35.0); MPV 6.5 fL (7.6-11.3); Monocytes % 9.9 % (3.3-12.3); Neutrophils % 79.3 % (41.7-73.7); Nucleated Red Blood Cells % 0.1 % (0-0); Platelets 266 thou/uL (152-406); RBC Red Blood Cell Count 3.13 M/uL (4.33-5.43); Red Cell Distribution Width 21.3 % (12.1-15.2)
[2024-01-29 19:27] LABS: Anisocytosis 1+; Blood Morphology Comment NOTED (NOT SEEN); Platelet Estimate ADEQ; White Blood Cell Scan OK (OK)
[2024-01-29 19:40] LABS: Anion Gap 10.7 mEq/L (5.0-15.0); Magnesium 2.6 mg/dL (1.6-2.4); Potassium 3.7 mEq/L (3.5-5.1); Troponin High Sensitivity 23.3 pg/mL (<58.9)
--- NOTE | 2024-01-29 20:01 | RAD REPORT ---
EXAMINATION: ONE VIEW CHEST XR CLINICAL INDICATION: Male, 78 years old.,SOB TECHNIQUE: Frontal chest projection is submitted. Examination is limited by patient positioning and t echnique. COMPARISON: 11/22/2023 FINDINGS: The lungs are hypoventilated. Central interstitial prominence again seen. No pneumothorax or sizable effusion. Stable cardiomegaly. Mediastinal contours are unremarkable. IMPRESSION: Stable findings suggestive of CHF.
[2024-01-29] MEDS ORDERED: IPRATROPIUM BROM 0.5MG/2.5ML ONE (20:26)
[2024-01-29] MEDS ORDERED: METHYLPREDNISOLONE 125 MG INJ ONE (20:27)
[2024-01-29 21:19] LABS: SARS-CoV-2 Antigen CONTROL BLUE LINE VIS/BG OK; SARS-CoV-2 Antigen Rapid Res Negative (Negative)
[2024-01-29] MEDS ORDERED: LORAZEPAM 1 MG TABLET ONE (21:30)
--- NOTE | 2024-01-29 21:52 | EDPHYS ---
Physician Documentation [facility] Name: Amando Grossman Age: 78 yrs Sex: Male : 1945 Arrival Date: 01/29/2024 Time: 18:45 Bed 18 Private MD: ED Physician Davi Gil HPI: 01/28 18:53 This 78 yrs old Male presents to ER via Unassigned with complaints of Blood sw6 Pressure Problem, Chest Pain. 18:53 The patient presents with EMS from his dialysis center for evaluation for chest pain as sw6 well as low blood pressure. He reports he has a history of low blood pressure with dialysis and normally takes midodrine prior to his sessions. He reports started having chest pain while connected to the machine at dialysis and took 3 nitroglycerin tablets. Staff then noted his systolic blood pressure had dropped to the 70s. They stopped dialysis and called 911. He was then brought to the ER for evaluation. EMS reports his blood pressure was 110 systolic upon their arrival. He reports his chest pain has resolved upon arrival to the ER. He only complains of slight shortness of breath. No cough. No congestion. No fevers. He does wear 2 to 3 L of oxygen at all times. He reports a history of asthma but does not use any breathing treatments at home. No history of diabetes. He was given aspirin 325 mg by EMS prior to arrival. Here for evaluation.. Historical: - Allergies: 18:55 Iodine; topical is ok; db 18:55 Shellfish Containing Products; db 18:55 PENICILLINS; db 18:55 STATINS HMG COA REDUCTASE INHIBITORS; db - PMHx: 18:55 Anxiety; CHF; Depression; Dialysis <M and F; DM; GERD; Hypertension; High Cholesterol; db macular degeneration; Urinary Urgency; - PSHx: 18:55 Right above the knee amputation.; db - Immunization history:: Adult Immunizations unknown. - Infectious Disease History:: Denies. - Social history:: Smoking status: Patient denies any tobacco usage or history of. ROS: 18:53 Constitutional: Negative for fever, chills, and weight loss, ENT: Negative for injury, sw6 pain, and discharge, Abdomen/GI: Negative for abdominal pain, nausea, vomiting, diarrhea, and constipation, Back: Negative for injury and pain, MS/Extremity: Negative for injury and deformity, Skin: Negative for injury, rash, and discoloration, Neuro: Negative for headache, weakness, numbness, tingling, and seizure, 18:53 Cardiovascular: Positive for chest pain, 18:53 Respiratory: Positive for shortness of breath, Negative for cough, sputum production, Exam: 18:53 Constitutional: The patient appears in no acute distress, alert, awake, comfortable, sw6 non-diaphoretic, non-toxic, well developed, well hydrated, 18:53 Head/face: Exam is negative for obvious evidence of injury or deformity, deformity, 18:53 ENT: Nose: is normal, 18:53 Cardiovascular: Rate: normal, Rhythm: regular, 18:53 Respiratory: the patient does not display signs of respiratory distress, Respirations: normal, Breath sounds: wheezing: Poor air movement throughout with wheezing bilaterally. No use of accessory muscles. He is able to speak in full and complete sentence without difficulty., 18:53 Abdomen/GI: Inspection: abdomen appears normal, Palpation: abdomen is soft and non-tender, in all quadrants, Obese, 18:53 Musculoskeletal/extremity: Right AKA. Edema to his left leg. 18:53 Skin: Appearance: normal except for affected area, 18:53 Neuro: Orientation: is normal, Mentation: is normal, 18:53 Psych: Behavior/mood is pleasant, cooperative, 19:16 ECG was reviewed by the Attending Physician. sw 21:58 Constitutional: Ill appearing male chronically, left arm hemodialysis fistula with sp4 palpable thrill, nontoxic-appearing, blood pressure stable. 21:58 EKG at 1911 there is a paced rhythm rate 80 Vital Signs: 18:44 BP 121 / 60; Pulse 79; Resp 24; Temp 98.5(O); Pulse Ox 95% on R/A; Weight 95.25 kg; db 22:05 BP 105 / 58; Pulse 84; Resp 16; Pulse Ox 95% on R/A; jb4 Micah Coma Score: 21:58 Eye Response: spontaneous(4). Motor Response: obeys commands(6). Verbal Response: sp4 oriented(5). Total: 15. MDM: 18:52 Medical Screening Exam initiated sw6 18:53 Differential diagnosis: congestive heart failure pneumonia, Viral syndrome, COPD, sw6 volume overload. Data reviewed: vital signs, nurses notes, EMS record. 19:57 ED course: The patient presents with EMS from his dialysis center for evaluation for sw6 chest pain that started while connected to the dialysis machine. He had received approximately half of his session when the chest pain started. He took 3 nitroglycerin tablets that he had with him for the chest pain. His chest pain then resolved however he was noted to have soft blood pressure in the 70s while at dialysis. Therefore they stopped dialysis and called 911. By the time EMS arrived his blood pressure had normalized and was now 110 systolic. He reports chest pain had resolved but he did complain of some labored breathing. No cough or congestion. No fevers or chills. He does not smoke. He does wear 3 L of oxygen at all times. His vital signs are stable in the ER. He does have poor air movement throughout with wheezing. No use of accessory muscles and he is able to speak in full and complete sentences out difficulty. He is edema to his left leg and is missing his right leg. His EKG shows a left bundle branch block. He was given albuterol treatment here in the ER and reports no significant change in his symptoms. His laboratory studies show a baseline elevated creatinine for him as well as a normal troponin. Will provide the patient with additional medication and screen the patient for COVID, flu and RSV. He is signed out pending reevaluation and final disposition. 21:54 HEART Score: History: Slightly Suspicious (0), ECG: Normal (0), Age: > or = 65 years sp4 (2), Risk Factors: > or = 3 Risk factors for atherosclerotic disease (2), Troponin: < or = 1 x Normal Limit (0), Total Score = 4. ED course: Blood pressure Improved , Patient denied chest pains, patient states he would like to be released home. Patient's troponin is negative. Patient was offered admission for monitoring of his blood pressure but he declined. Stable for discharge home at this time will have patient follow-up with Dr. Nj in 5 to 6 days. Advised to return to the hospital for any medical concerns. The patient also wished to try some medicine for insomnia instead of his Ambien. We have prescribed 10 pills of p.o. temazepam 7.5 mg each.. 01/28 18:53 Order name: Basic Metabolic Panel; Complete Time: 19:43 sw6 01/28 19:43 Interpretation: Abnormal: creatinine elevated but is an ESRD patient. 01/28 18:53 Order name: CBC with Diff; Complete Time: 19:43 01/28 19:43 Interpretation: Within normal limits. 01/28 18:53 Order name: Magnesium; Complete Time: 19:43 01/28 19:43 Interpretation: Within normal limits. 01/28 18:53 Order name: Troponin HS; Complete Time: 19:43 sw 01/28 19:43 Interpretation: Within normal limits. 01/28 19:27 Order name: CBC Smear Scan; Complete Time: 19:43 EDMD 01/28 19:43 Interpretation: Within normal limits. 01/28 20:00 Order name: Flu; Complete Time: 21:36 01/28 20:00 Order name: RSV; Complete Time: 21:36 01/28 20:00 Order name: SARS-COV-2 Antigen Rapid; Complete Time: 21:36 01/28 18:53 Order name: XRAY Chest (1 view); Complete Time: 21:36 01/28 18:53 Order name: Cardiac monitoring; Complete Time: 19:03 01/28 18:53 Order name: EKG - Nurse/Tech; Complete Time: 19:15 01/28 18:53 Order name: IV Saline Lock; Complete Time: 19:03 01/28 18:53 Order name: Labs collected and sent; Complete Time: 19:15 01/28 18:53 Order name: O2 Per Protocol; Complete Time: 19:03 01/28 18:53 Order name: O2 Sat Monitoring; Complete Time: 19:03 EC:16 Rate is 80 beats/min. Rhythm is regular. Left axis deviation noted. NJ interval is sw6 prolonged. QRS interval is prolonged. QT interval is prolonged. Administered Medications: 19:23 Drug: Albuterol Inhalation 5 mg Inhalation once Route: Inhalation; jb4 22:05 Follow up: Response: No adverse reaction; Marked relief of symptoms jb4 20:36 Drug: MethylPrednisoLONE IVP 125 mg IVP once Route: IVP; Site: right forearm; jb4 22:05 Follow up: Response: No adverse reaction; Marked relief of symptoms jb4 20:36 Drug: Albuterol Inhalation 2.5 mg Inhalation once Route: Inhalation; jb4 22:05 Follow up: Response: No adverse reaction; Marked relief of symptoms jb4 20:36 Drug: Ipratropium Inhalation Aerosol 0.5 mg Inhalation once Route: Inhalation; jb4 22:05 Follow up: Response: No adverse reaction; Marked relief of symptoms jb4 21:36 Drug: LORazepam PO 1 mg PO once Route: PO; jb4 22:05 Follow up: Response: No adverse reaction; Marked relief of symptoms jb4 Disposition Summary: 01/29/24 21:51 Discharge Ordered Notes: Location: Home sp4 Problem: new sp4 Symptoms: have improved sp4 Condition: Stable sp4 Diagnosis - Hypotensive Episode in Dialysis , ESRD Dialysis Dependent, Hypotension sp4 secondary to Nitroglycerin Followup: sp4 - With: Elicia Gaston MD - When: 5 - 6 days - Reason: Recheck today's complaints Discharge Instructions: - Discharge Summary Sheet sp4 - Hemodialysis, Care After, [id number] sp4 Forms: - Patient Portal Instructions sp4 Prescriptions: - temazepam 7.5 mg Oral capsule - take 1 capsule ORAL route every evening Before Bed time PRN Insomnia; 10 sp4 capsule; Refills: 0, Product Selection Permitted Signatures: Dispatcher [employer] EDReji Henry RN RN jb4 Jane Martinez RN RN db Davi Gil MD MD sp4 Ely Allison MD MD sw6 Corrections: (The following items were deleted from the chart) 18:54 18:54 BASIC METABOLIC PANEL+C.LAB.BRZ ordered. EDMS EDMS 18:54 18:54 CBC+H.LAB.BRZ ordered. EDMS EDMS 18:54 18:54 MAGNESIUM+C.LAB.BRZ ordered. EDMS EDMS 18:54 18:54 Troponin High Sensitivity+C.LAB.BRZ ordered. EDMS EDMS 18:54 18:54 Chest Single View+RAD.RAD.BRZ ordered. EDMS EDMS 19:01 18:53 The patient presents with EMS from his dialysis center for evaluation for chest sw6 pain as well as low blood pressure. He reports he has a history of low blood pressure with dialysis and normally takes midodrine prior to his sessions. He reports started having chest pain while connected to the machine at dialysis and took 3 nitroglycerin tablets. Staff then noted his systolic blood pressure had dropped to the 70s. They stopped dialysis and called 911. He was then brought to the ER for evaluation. EMS reports his blood pressure was 110 systolic upon their arrival. He reports his chest pain has resolved upon arrival to the ER. He only complains of slight shortness of breath. No cough. No congestion. No fevers. He does wear 2 to 3 L of oxygen at all times. He reports a history of asthma but does not use any breathing treatments at home. No history of diabetes. Here for evaluation.. 20:00 19:57 ED course: The patient presents with EMS from his dialysis center for evaluation sw6 for chest pain that started while connected to the dialysis machine. He had received approximately half of his session when the chest pain started. He took 3 nitroglycerin tablets that he had with him for the chest pain. His chest pain then resolved however he was noted to have soft blood pressure in the 70s while at dialysis. Therefore they stopped dialysis and called 911. By the time EMS arrived his blood pressure had normalized and was now 110 systolic. He reports chest pain had resolved but he did complain of some labored breathing. No cough or congestion. No fevers or chills. He does not smoke. He does wear 3 L of oxygen at all times. His vital signs are stable in the ER. He does have poor air movement throughout with wheezing. No use of accessory muscles and he is able to speak in full and complete sentences out difficulty. He is edema to his left leg and is missing his right leg. His EKG shows a left bundle branch block. He was given albuterol treatment here in the ER and reports no significant change in his symptoms. His laboratory studies show a baseline elevated creatinine for him as well as a normal troponin. Will provide the patient with additional medication and screen the patient for COVID, flu and RSV. He is signed out pending reevaluation.. 6 20: 20:00 Influenza Screen (A \T\ B)+BA.LAB.BRZ ordered. EDMS EDMS 20: 20:00 Respiratory Syncytial Virus Ag+BA.LAB.BRZ ordered. EDMS EDMS 20: 20:00 SARS-COV-2 Antigen Rapid+I.LAB.BRZ ordered. EDMS EDMS
--- NOTE | 2024-01-29 21:52 | ER ---
Nurse's Notes [facility] Name: Amando Grossman Age: 78 yrs Sex: Male : 1945 Arrival Date: 01/29/2024 Time: 18:45 Bed 18 Private MD: Diagnosis: Hypotensive Episode in Dialysis , ESRD Dialysis Dependent, Hypotension secondary to Nitroglycerin Presentation: 01/28 18:44 Chief complaint: EMS states: FROM [facility]. UNABLE TO COMPLETE DIALYSIS DUE TO db BP 75 SYSTOLIC. STATES TOOK NITRO X 3 DURING DIALYSIS FOR CHEST PAIN. ASA 324 MG GIVEN. ON NC 3 L AT HOME. COURSE TIGHT WHEEZES. Coronavirus screen: Client denies travel out of the [place] in the last 14 days. At this time, the client does not indicate any symptoms associated with coronavirus-19. Ebola Screen: Patient negative for fever greater than or equal to 101.5 degrees Fahrenheit, and additional compatible Ebola Virus Disease symptoms Patient denies exposure to infectious person. Patient denies travel to an Ebola-affected area in the 21 days before illness onset. No symptoms or risks identified at this time. Initial Sepsis Screen: Does the patient meet any 2 criteria? No. Patient's initial sepsis screen is negative. Does the patient have a suspected source of infection? No. Patient's initial sepsis screen is negative. Risk Assessment: Do you want to hurt yourself or someone else? Patient reports no desire to harm self or others. Onset of symptoms was January 29, 2024. Care prior to arrival: Medication(s) given: ASA, 81 mg, x 4. 18:44 Method Of Arrival: EMS: [facility] db 18:44 Acuity: KELLY 2 db Triage Assessment: 18:55 General: Appears in no apparent distress. comfortable, Behavior is calm, cooperative. db Pain: Complains of pain in chest. Neuro: Level of Consciousness is awake, alert, obeys commands, Oriented to person, place, time, situation. Cardiovascular: Reports chest pain. Respiratory: Airway is patent Respiratory effort is even, unlabored, Respiratory pattern is regular, symmetrical. Historical: - Allergies: 18:55 Iodine; topical is ok; db 18:55 Shellfish Containing Products; db 18:55 PENICILLINS; db 18:55 STATINS HMG COA REDUCTASE INHIBITORS; db - PMHx: 18:55 Anxiety; CHF; Depression; Dialysis <M and F; DM; GERD; Hypertension; High Cholesterol; db macular degeneration; Urinary Urgency; - PSHx: 18:55 Right above the knee amputation.; db - Immunization history:: Adult Immunizations unknown. - Infectious Disease History:: Denies. - Social history:: Smoking status: Patient denies any tobacco usage or history of. Screenin:14 [facility] ED Fall Risk Assessment (Adult) History of falling in the last 3 months, jb4 including since admission No falls in past 3 months (0 pts) Confusion or Disorientation No (0 pts) Intoxicated or Sedated No (0 pts) Impaired Gait No (0 pts) Mobility Assist Device Used No (0 pt) Altered Elimination No (0 pt) Score/Fall Risk Level 0 - 2 = Low Risk Oriented to surroundings, Maintained a safe environment. Abuse screen: Denies threats or abuse. Nutritional screening: No deficits noted. Tuberculosis screening: No symptoms or risk factors identified. Assessment: 18:56 Reassessment: Patient appears in no apparent distress at this time. Patient and/or db family updated on plan of care and expected duration. Pain level reassessed. Patient is alert, oriented x 3, equal unlabored respirations, skin warm/dry/pink. SEE TRIAGE FOR INITIAL ASSESSMENT. General: Appears in no apparent distress. comfortable, Behavior is calm, cooperative. Pain: Complains of pain in chest Pain radiates to chest Pain began gradually. Neuro: Level of Consciousness is awake, alert, obeys commands, Oriented to person, place, time, situation. Respiratory: Airway is patent Respiratory effort is even, unlabored, Respiratory pattern is regular, symmetrical, Breath sounds are coarse Breath sounds with wheezes bilaterally. 22:03 Reassessment: Patient appears in no apparent distress at this time. Patient and/or jb4 family updated on plan of care and expected duration. Pain level reassessed. Patient is alert, oriented x 3, equal unlabored respirations, skin warm/dry/pink. Vital Signs: 18:44 BP 121 / 60; Pulse 79; Resp 24; Temp 98.5(O); Pulse Ox 95% on R/A; Weight 95.25 kg; db 22:05 BP 105 / 58; Pulse 84; Resp 16; Pulse Ox 95% on R/A; jb4 [place] Coma Score: 21:58 Eye Response: spontaneous(4). Motor Response: obeys commands(6). Verbal Response: sp4 oriented(5). Total: 15. ED Course: 18:52 Patient arrived in ED. db 18:52 Ely Allison MD is Attending Physician. sw6 18:55 Triage completed. db 18:55 Arm band placed on Patient placed in an exam room. db 19:17 Inserted saline lock: 22 gauge in right wrist, using aseptic technique. Blood af3 collected. Flushed with 10 mL NS. 19:23 XRAY Chest (1 view) In Process Unspecified. EDMS 20:07 Attending Physician role handed off by Ely Allison MD sp4 20:07 Davi Gil MD is Attending Physician. sp4 21:50 Elicia Gaston MD is Referral Physician. sp4 22:03 Patient has correct armband on for positive identification. Bed in low position. Call jb4 light in reach. Side rails up X 1. Provided Education on: discharge instructions.. 22:03 Client placed on continuous cardiac and pulse oximetry monitoring. NIBP monitoring jb4 applied. radiation monitor on. Pulse ox on. 22:03 No provider procedures requiring assistance completed. IV discontinued, intact, jb4 bleeding controlled, No redness/swelling at site. Pressure dressing applied. Oxygen administration via nasal cannula \T\ 3L/min Response to oxygen therapy: this is pt's home O2 dosage. Administered Medications: 19:23 Drug: Albuterol Inhalation 5 mg Inhalation once Route: Inhalation; jb4 22:05 Follow up: Response: No adverse reaction; Marked relief of symptoms jb4 20:36 Drug: MethylPrednisoLONE IVP 125 mg IVP once Route: IVP; Site: right forearm; jb4 22:05 Follow up: Response: No adverse reaction; Marked relief of symptoms jb4 20:36 Drug: Albuterol Inhalation 2.5 mg Inhalation once Route: Inhalation; jb4 22:05 Follow up: Response: No adverse reaction; Marked relief of symptoms jb4 20:36 Drug: Ipratropium Inhalation Aerosol 0.5 mg Inhalation once Route: Inhalation; jb4 22:05 Follow up: Response: No adverse reaction; Marked relief of symptoms jb4 21:36 Drug: LORazepam PO 1 mg PO once Route: PO; jb4 22:05 Follow up: Response: No adverse reaction; Marked relief of symptoms jb4 Medication: 19:14 VIS not applicable for this client. jb4 Outcome: 21:51 Discharge ordered by . jay 22:03 Discharged to home via wheelchair, with family, jb4 22:03 Condition: stable 22:03 Discharge instructions given to patient, Instructed on discharge instructions, follow up and referral plans. medication usage, Demonstrated understanding of instructions, follow-up care, medications, Prescriptions given X 1, 22:06 Patient left the ED. jb4 Signatures: Dispatcher [employer] EDMS Reji Lopez RN RN jb4 Jane Martinez RN RN db Davi Gil MD MD sp4 Ely Allison MD MD sw6 Liss Dougherty 3
[2024-01-29 22:10] VITALS: BP 105/58; O2SAT 95
--- NOTE | 2024-01-31 15:45 | EKG ---
Test Date: 2024-01-29 Test Time: 19:11:43 Maori Physiotherapist: BIRD MEASUREMENT RESULTS: Intervals: Rate: 80 MD: 206 QRSD: 170 QT: 482 QTc: 555 [place]: P: 42 MD: 206 QRS: -81 T: 101 INTERPRETIVE STATEMENTS: Normal sinus rhythm Left axis deviation Nonspecific intraventricular block Inferior infarct, age undetermined Anterolateral infarct, age undetermined Abnormal ECG Compared to ECG 11/22/2023 16:06:13 Right bundle-branch block no longer present Myocardial infarct finding still present Electronically Signed On 01-31-24 15:43:16 BLOCK SORTER by Davin Good
== END 2024-01-29 22:06 | disposition home or self-care (01) ==
LOC: ER 18:45
DX: I95.3 Hypotension of hemodialysis (principal); R07.9 Chest pain, unspecified; I10 Essential (primary) hypertension; N18.6 End stage renal disease; Z99.2 Dependence on renal dialysis; Z11.52 Encounter for screening for COVID-19
CPT/HCPCS: 93005; 85025; 80048; 36415; 83735; 84484; 87807; 87804 ×2; 71045; 96374; 99285; 87811; J7613 ×2; J7644; J2919

== ENCOUNTER 2024-01-30 09:13 | Emergency (ER) | payer OTHER, BC ==
[2024-01-30] MEDS ORDERED: NITROGLYCERIN 0.4 MG/TAB SL ONE (09:22)
--- NOTE | 2024-01-30 10:08 | RAD REPORT ---
EXAMINATION: ONE VIEW CHEST XR CLINICAL INDICATION: DYSPNEA TECHNIQUE: Frontal chest projection is submitted. Examination is limited by patient positioning and t echnique. COMPARISON: 01/29/2024, 11/22/2023 FINDINGS: Mild pulmonary edema is seen. Small right pleural effusion. The heart is moderately enlarged. Dual le ad pacer device is present. No displaced fractures identified. IMPRESSION: Mild CHF without significant change.
--- NOTE | 2024-01-30 10:28 | EDPHYS ---
Physician Documentation [facility] Name: Amando Grossman Age: 78 yrs Sex: Male : 1945 Arrival Date: 01/30/2024 Time: 09:13 Bed 3 Private MD: ED Physician Jay Arvizu HPI: 01/29 09:22 This 78 yrs old Male presents to ER via Unassigned with complaints of shortness of sp3 breath. 09:22 78-year-old male with history of CHF, end-stage renal disease Saturday sp3 with abbreviated session yesterday due to hypotension due to chest pain/nitroglycerin usage, hypertension, hyperlipidemia now presents to the ED with chief complaint shortness of breath. Patient was seen yesterday in the ED for the hypotension and subsequently discharged. Today he comes in significantly short of breath with respiratory distress via EMS. He states he still has body wide pain. Review of systems negative for fever, headache, abdominal pain, vomiting, diarrhea, syncope, or any other signs or symptoms on ROS at this time.. Historical: - Allergies: 09:41 Iodine; topical is ok; db 09:41 PENICILLINS; db 09:41 Shellfish Containing Products; db 09:41 STATINS HMG COA REDUCTASE INHIBITORS; db - PMHx: 09:41 CHF; Anxiety; Depression; Dialysis <M and F; GERD; DM; High Cholesterol; Hypertension; db macular degeneration; Urinary Urgency; - PSHx: 09:41 Right above the knee amputation.; db - Immunization history:: Adult Immunizations unknown. - Infectious Disease History:: Denies. - Social history:: Smoking status: Patient denies any tobacco usage or history of. ROS: 09:24 Constitutional: Negative for fever, chills, and weight loss, Eyes: Negative for injury, sp3 pain, redness, and discharge, Neck: Negative for injury, pain, and swelling, Abdomen/GI: Negative for abdominal pain, nausea, vomiting, diarrhea, and constipation, Back: Negative for injury and pain, Skin: Negative for injury, rash, and discoloration, Neuro: Negative for headache, weakness, numbness, tingling, and seizure, 09:24 All other systems are negative, Exam: 09:24 Constitutional: This is a well developed, well nourished patient who is awake, alert, sp3 and in no acute distress. Head/Face: Normocephalic, atraumatic. Eyes: Pupils equal round and reactive to light, extra-ocular motions intact. Lids and lashes normal. Conjunctiva and sclera are non-icteric and not injected. Cornea within normal limits. Periorbital areas with no swelling, redness, or edema. Neck: Trachea midline, no thyromegaly or masses palpated, and no cervical lymphadenopathy. Supple, full range of motion without nuchal rigidity, or vertebral point tenderness. No Meningismus. Abdomen/GI: Soft, non-tender, with normal bowel sounds. No distension or tympany. No guarding or rebound. No evidence of tenderness throughout. Neuro: Awake and alert, GCS 15, oriented to person, place, time, and situation. Cranial nerves II-XII grossly intact. Motor strength 5/5 in all extremities. Sensory grossly intact. Cerebellar exam normal. Normal gait. Psych: Awake, alert, with orientation to person, place and time. Behavior, mood, and affect are within normal limits. 09:24 Cardiovascular: Patient tachycardic at 110 with blood pressure 157/90. Respiratory distress noted with accessory muscle use, tachypnea at 30 and room air pulse oxygenation at 93%. Patient is on 2 L nasal cannula baseline at home. EMS brought him in on 15 L. Significant rales noted bilaterally. Patient is AKA on the right lower extremity. Patient talking in 4-5 word sentences., 09:40 ECG was reviewed by the Attending Physician. sp3 09:44 EKG demonstrates sinus tachycardia 105 bpm and a paced rhythm with ventricular capture sp3 Vital Signs: 09:10 BP 157 / 88; Pulse 108; Resp 36; Temp 97.8(O); Pulse Ox 100% on 15 lpm Non-rebreather db mask; Weight 87.09 kg; 09:20 BP 166 / 106; Pulse 101; Resp 22; Pulse Ox 99% on BiPAP; db 09:35 BP 88 / 55; Pulse 99; Resp 22; Pulse Ox 99% on BiPAP; db 09:49 BP 103 / 52; Pulse 97; Resp 24; Pulse Ox 100% ; db 11:49 BP 106 / 48; Pulse 84; Pulse Ox 100% on BiPAP; MAP 66 mmHg; Pain 0/10; tm6 13:30 BP 114 / 57; Pulse 82; Resp 20; ll1 18:21 BP 97 / 43; Pulse 89; Resp 16; Pulse Ox 98% on 4 lpm NC; ll1 19:35 BP 93 / 58; Pulse 88; Resp 24; Temp 98.5; Pulse Ox 100% on 5 lpm NC; dd2 11:49 Pain Scale: Adult tm6 MDM: 09:18 Medical Screening Exam initiated sp3 09:22 Data reviewed: vital signs, nurses notes. sp3 09:25 ED course: 78-year-old male with CHF and volume overload due to abbreviated dialysis sp3 session yesterday now presents with shortness of breath. Differential diagnosis includes fluid overload, CHF, ACS, electrolyte abnormality, combination of all of these, among others. Initially patient placed on BiPAP 24/08, ABG and full workup pending including chest x-ray, labs, EKG. Nitroglycerin sublingual x 1 given. Will follow blood pressure closely and clinical improvement.. 10:25 ED course: Critical care note. Second after glycerin added however blood pressure is sp3 now borderline. I have contacted Dr. Nj who will be sending nurse for dialysis. Patient will be admitted to internal medicine with subsequent continued respiratory support. Blood gas demonstrates 7.29/48/263/22.. 18:14 ED course: Patient was initially going to be admitted here however cardiology assessed sp3 the patient and stated that they are not comfortable doing the catheterization here due to the lack of surgical backup and complexity of the case. They are recommending as transfer patient to [facility] for further evaluation and treatment. We will initiate transfer at this time.. 18:34 ED course: Spoke to Dr. Fofana at [facility]' CCU who has accepted the patient. We will sp3 hold on any heparin at this time. Patient will be transferred directly to the CCU. Currently no chest pain. Patient is much improved after hemodialysis now on nasal cannula and no longer on BiPAP.. 19:20 ED course: Spoke to CCU attending Dr. Haas who has accepted the patient to the unit sp3 along with Dr. Fofana. . 01/29 09:19 Order name: Basic Metabolic Panel; Complete Time: 13:11 sp3 01/29 09:19 Order name: CBC with Diff; Complete Time: 13:11 sp3 12/19 09:19 Order name: LFT's; Complete Time: 13:11 sp3 01/29 09:19 Order name: Magnesium; Complete Time: 13:11 sp3 01/29 09:19 Order name: NT PRO-BNP; Complete Time: 13:11 sp3 01/29 09:19 Order name: PT-INR; Complete Time: 13:11 sp3 01/29 09:19 Order name: Troponin HS; Complete Time: 13:11 3 01/29 09:19 Order name: ABG; Complete Time: 13:11 3 01/29 09:19 Order name: Lactate w/ 2H reflex if indic.; Complete Time: 13:11 3 01/29 11:39 Order name: CBC Smear Scan; Complete Time: 13:11 EDMS 01/29 09:19 Order name: XRAY Chest (1 view); Complete Time: 10:09 3 01/29 09:19 Order name: Cardiac monitoring; Complete Time: 09:47 3 01/29 09:19 Order name: EKG - Nurse/Tech; Complete Time: 09:47 3 01/29 09:19 Order name: IV Saline Lock; Complete Time: 09:47 sp3 01/29 09:19 Order name: Labs collected and sent; Complete Time: 09:47 3 01/29 09:19 Order name: O2 Per Protocol; Complete Time: 09:48 sp3 01/29 09:19 Order name: O2 Sat Monitoring; Complete Time: 09:48 sp3 Administered Medications: 09:23 Drug: Nitroglycerin Sublingual 0.4 mg Sublingual once Route: Sublingual; db 11:49 Follow up: Response: No adverse reaction tm6 11:49 Drug: Ativan IVP 1 mg IVP once Route: IVP; Site: right forearm; tm6 11:49 Follow up: Response: No adverse reaction tm6 18:17 Not Given (low BP): nitroglycerin0.4 mg Sublingual once ll1 20:18 Drug: Ativan IVP 1 mg IVP once; Just prior to transport Route: IVP; Site: right forearm;dd2 20:18 Follow up: Response: Medication administered at discharge. dd2 Disposition: 09:26 Critical Care:. sp3 Disposition Summary: 01/30/24 18:15 Transfer Ordered Notes: Transfer Location: [facility] sp3 Reason: Higher level of care sp3 Condition: Stable(01/30/24 18:15) sp3 Problem: an acute exacerbation(01/30/24 18:15) sp3 Symptoms: have worsened(01/30/24 18:15) sp3 Accepting Physician: ALFREDO [facility](01/30/24 20:32) dd2 Diagnosis - High risk NSTEMI, respiratory distress, CHF sp3 Forms: - Medication Reconciliation Form sp3 - SBAR form sp3 Critical care time excluding procedures: 09:26 Critical care time: Bedside Care: 20 minutes, Consultation: 10 minutes. Total time: 30 sp3 minutes Signatures: Dispatcher [employer] EDMS Jay Arvizu MD MD sp3 Jane Martinez, RN RN db Samantha Ronquillo RN RN tm6 CHELSEY HORNER RN RN dd2 Annel Tijerina RN ll1 Corrections: (The following items were deleted from the chart) 09:19 09:19 Arterial Blood Gas+[email or web address].LAB.BRZ ordered. EDMS EDMS 09:20 09:20 BiPap ([employer] Only)+RC.RAD.BRZ ordered. EDSD EDMS 10:28 10:27 Dorian Valladares sp3 sp3 10:29 10:28 Fernie Cueva sp3 sp3 18:07 10:25 ED course: Critical care note. Second after glycerin added however blood pressure sp3 is now borderline. I have contacted Dr. Degroot who will be sending nurse for dialysis. Patient will be admitted to internal medicine with subsequent continued respiratory support. Blood gas demonstrates 7.29/48/263/22.. sp3 18:08 10:27 Inpatient Admission sp3 sp3 18:08 10:27 Intensive Care Unit sp3 sp3 18:08 10:27 Guarded sp3 sp3 18:08 10:27 an acute exacerbation sp3 sp3 18:08 10:27 have worsened sp3 sp3 18:08 10:27 Standard sp3 sp3 18:08 10:27 sp3 sp3 18:08 10:27 CHF exacerbation, volume overload, hypotension sp3 sp3 18:08 10:29 Richard Valladares-Ran sp3 sp3 20:32 18:[address] [facility] sp3 dd2
--- NOTE | 2024-01-30 10:28 | ER ---
Nurse's Notes [facility] Name: Amando Grossman Age: 78 yrs Sex: Male : 1945 Arrival Date: 01/30/2024 Time: 09:13 Bed 3 Private MD: Diagnosis: High risk NSTEMI, respiratory distress, CHF Presentation: 01/29 09:10 Chief complaint: EMS states: RESP FAILURE. SEEN YESTERDAY FOR SOB AND CHEST PAIN AFTER db DIALYSIS. PATIENT ON HOME O2 BROUGHT IN BY EMS ON NONREBREATHER. Coronavirus screen: Client denies travel out of the [place] in the last 14 days. At this time, the client does not indicate any symptoms associated with coronavirus-19. Ebola Screen: Patient negative for fever greater than or equal to 101.5 degrees Fahrenheit, and additional compatible Ebola Virus Disease symptoms Patient denies exposure to infectious person. Patient denies travel to an Ebola-affected area in the 21 days before illness onset. No symptoms or risks identified at this time. Initial Sepsis Screen: Does the patient meet any 2 criteria? No. Patient's initial sepsis screen is negative. Does the patient have a suspected source of infection? No. Patient's initial sepsis screen is negative. Risk Assessment: Do you want to hurt yourself or someone else? Patient reports no desire to harm self or others. Onset of symptoms was January 29, 2024. Care prior to arrival: Oxygen administered. via a non-rebreather mask. 09:10 Method Of Arrival: EMS: [facility] db 09:10 Acuity: KELLY 2 db Triage Assessment: 09:41 General: Appears distressed, uncomfortable, Behavior is cooperative, anxious. Pain: db Complains of pain in chest. Neuro: Level of Consciousness is awake, alert, obeys commands, Oriented to person, place, time, situation. Cardiovascular: Reports shortness of breath. Respiratory: Reports shortness of breath at rest labored breathing Airway is patent Respiratory effort is labored, Respiratory pattern is regular, symmetrical. 18:23 Respiratory: Onset: The symptoms/episode began/occurred yesterday, the patient has ll1 moderate shortness of breath. Historical: - Allergies: 09:41 Iodine; topical is ok; db 09:41 PENICILLINS; db 09:41 Shellfish Containing Products; db 09:41 STATINS HMG COA REDUCTASE INHIBITORS; db - PMHx: 09:41 CHF; Anxiety; Depression; Dialysis <M and F; GERD; DM; High Cholesterol; Hypertension; db macular degeneration; Urinary Urgency; - PSHx: 09:41 Right above the knee amputation.; db - Immunization history:: Adult Immunizations unknown. - Infectious Disease History:: Denies. - Social history:: Smoking status: Patient denies any tobacco usage or history of. Screenin:50 [facility] ED Fall Risk Assessment (Adult) History of falling in the last 3 months, tm6 including since admission No falls in past 3 months (0 pts) Confusion or Disorientation No (0 pts) Intoxicated or Sedated No (0 pts) Impaired Gait No (0 pts) Mobility Assist Device Used No (0 pt) Altered Elimination No (0 pt) Score/Fall Risk Level 0 - 2 = Low Risk Oriented to surroundings, Maintained a safe environment, Educated pt \T\ family on fall prevention, incl call for assistance when getting out of bed. Abuse screen: Denies threats or abuse. Denies injuries from another. Nutritional screening: No deficits noted. Tuberculosis screening: No symptoms or risk factors identified. Assessment: 09:35 General: ABG DONE BY RT. db 09:50 Reassessment: NOTIFIED DR. ARVIZU PATIENT BP DROPPED T 88 SYSTOLIC AND CAME BACK UP TO db 103/52 AND 2ND NITRO HELD. Cardiovascular:. Respiratory: Airway is patent Respiratory effort is labored, Respiratory pattern is symmetrical, Breath sounds are diminished. 11:50 General: Appears in no apparent distress. Behavior is calm, cooperative. Neuro: Level tm6 of Consciousness is awake, alert, obeys commands, Oriented to person, place, time, situation. Cardiovascular: Rhythm is ventricular pacer. Respiratory: Airway is patent Respiratory effort is labored, Respiratory pattern is regular, symmetrical, Patient placed on BiPAP:. GI: No signs and/or symptoms were reported involving the gastrointestinal system. Abdomen is round. : No signs and/or symptoms were reported regarding the genitourinary system. EENT: No signs and/or symptoms were reported regarding the EENT system. Derm: No signs and/or symptoms reported regarding the dermatologic system. Musculoskeletal: No signs and/or symptoms reported regarding the musculoskeletal system. 14:00 Reassessment: Patient and/or family updated on plan of care and expected duration. Pain tm6 level reassessed. Patient is alert, oriented x 3, equal unlabored respirations, skin warm/dry/pink. patient taken to dialysis. 18:22 Reassessment: No changes from previously documented assessment. Patient and/or family ll1 updated on plan of care and expected duration. Pain level reassessed. Patient is alert, oriented x 3, equal unlabored respirations, skin warm/dry/pink. Vital Signs: 09:10 BP 157 / 88; Pulse 108; Resp 36; Temp 97.8(O); Pulse Ox 100% on 15 lpm Non-rebreather db mask; Weight 87.09 kg; 09:20 BP 166 / 106; Pulse 101; Resp 22; Pulse Ox 99% on BiPAP; db 09:35 BP 88 / 55; Pulse 99; Resp 22; Pulse Ox 99% on BiPAP; db 09:49 BP 103 / 52; Pulse 97; Resp 24; Pulse Ox 100% ; db 11:49 BP 106 / 48; Pulse 84; Pulse Ox 100% on BiPAP; MAP 66 mmHg; Pain 0/10; tm6 13:30 BP 114 / 57; Pulse 82; Resp 20; ll1 18:21 BP 97 / 43; Pulse 89; Resp 16; Pulse Ox 98% on 4 lpm NC; ll1 19:35 BP 93 / 58; Pulse 88; Resp 24; Temp 98.5; Pulse Ox 100% on 5 lpm NC; dd2 11:49 Pain Scale: Adult tm6 ED Course: 09:18 Patient arrived in ED. sp3 09:18 Jay Arvizu MD is Attending Physician. sp3 09:25 Missed attempt(s): 22 gauge in right wrist. Bleeding controlled, band aid applied, db catheter tip intact. 09:30 EKG done, by ED staff, reviewed by Jay Arvizu MD. sa1 09:33 Jane Martinez, RN is Primary Nurse. db 09:41 Triage completed. db 09:41 Arm band placed on Patient placed in an exam room. db 09:46 XRAY Chest (1 view) In Process Unspecified. EDMS 10:00 Client placed on continuous cardiac and pulse oximetry monitoring. NIBP monitoring tm6 applied. panel monitor on. Pulse ox on. NIBP on. Noise minimized. Warm blanket given. Pillow given. Verbal reassurance given. 10:26 Dorian Valladares is Hospitalizing Provider. sp3 10:28 Fernie Cueva MD is Hospitalizing Provider. sp3 10:29 Dorian Valladares is Hospitalizing Provider. sp3 11:30 Basic Metabolic Panel Sent. tm6 11:30 CBC with Diff Sent. tm6 11:30 LFT's Sent. tm6 11:30 Magnesium Sent. tm6 11:30 NT PRO-BNP Sent. tm6 11:30 PT-INR Sent. tm6 11:30 Troponin HS Sent. tm6 11:30 Accessed peripheral vein via ultrasound, utilizing dynamic ultrasound technique Clean \T\ tm6 dry. Dressing intact. 22g . Good blood return. Flushes easily. 11:50 Patient has correct armband on for positive identification. Placed in gown. Bed in low tm6 position. Call light in reach. Side rails up X2. Provided Education on: wait time on dialysis. 13:49 Primary Nurse role handed off by Jane Martinez RN ll1 18:22 No provider procedures requiring assistance completed. Patient transferred, IV remains ll1 in place. 18:23 Initated transfer spoke with Mickey DUDLEY. cc6 19:07 CHELSEY HORNER, RN is Primary Nurse. dd2 19:52 EMS called for transport. cc6 20:07 Report given to ADRIEN Escobar at [facility]. dd2 Administered Medications: 09:23 Drug: Nitroglycerin Sublingual 0.4 mg Sublingual once Route: Sublingual; db 11:49 Follow up: Response: No adverse reaction tm6 11:49 Drug: Ativan IVP 1 mg IVP once Route: IVP; Site: right forearm; tm6 11:49 Follow up: Response: No adverse reaction tm6 18:17 Not Given (low BP): nitroglycerin0.4 mg Sublingual once ll1 20:18 Drug: Ativan IVP 1 mg IVP once; Just prior to transport Route: IVP; Site: right forearm;dd2 20:18 Follow up: Response: Medication administered at discharge. dd2 Medication: 11:50 VIS not applicable for this client. tm6 Outcome: 10:27 Decision to Hospitalize by Provider. sp3 13:47 Patient left the ED. hb 18:15 ER care complete, transfer ordered by . sp3 18:22 Condition: stable ll1 20:19 Transferred by ground EMS to [facility], [facility], Transfer form completed. dd2 20:19 Condition: stable 20:19 Discharge instructions given to patient, Instructed on the need for transfer, Demonstrated understanding of instructions, 20:32 Patient left the ED. dd2 Signatures: Dispatcher [employer] EDMS Selam Wu, RN RN Annel Osborne RN RN ll1 Jay Arvizu MD MD sp3 Jane Martinez RN RN Samantha Ronquillo RN RN 6 Sultan Murali [facility] Connie Lamar cc6 CHELSEY HORNER RN RN dd2
[2024-01-30 10:50] LABS: Blood Gas Oxyhemoglobin 95.3 % (94-97); Blood Gas THB 9.8 g/dl (12-18); Blood O2 Saturation 96.8 % (92-98.5)
[2024-01-30] MEDS ORDERED: LORazepam 2 MG/ML VIAL ONE ×2 (11:32→20:05)
[2024-01-30 11:35] LABS: Absolute Lymphocytes (CBC) 0.1 K/uL (0.7-4.9); Absolute Monocytes 0.2 K/uL (0.1-1.3); Absolute Neutrophil 8.1 K/uL (1.8-8.0); Basophils % 0.2 % (0-1.3); Hematocrit 27.8 % (39.6-49.0); Hemoglobin 8.6 g/dL (13.6-17.9); Lymphocytes % 1.5 % (15.3-44.8); MCH 28.4 pg (27.0-35.0); MCHC 31.1 g/dL (32.0-36.0); MCV 91.3 fL (80-100); MPV 7.2 fL (7.6-11.3); Monocytes % 1.9 % (3.3-12.3); Neutrophils % 96.4 % (41.7-73.7); Platelets 276 thou/uL (152-406); RBC Red Blood Cell Count 3.04 M/uL (4.33-5.43); Red Cell Distribution Width 21.2 % (12.1-15.2)
[2024-01-30 11:39] LABS: PT Prothrombin Time 13.8 SECONDS (9.4-12.5); Protime INR 1.24
--- NOTE | 2024-01-30 11:54 | P.HP ---
Patient History Date of Service: 01/31/24 Primary Care Provider: Please use as consult note as pt will need transfer from ED Reason for admission: Syncope, shortness of breath History of Present Illness: Mr. Grossman is a 78-year-old gentleman with a past medical history of hypertension, hyperlipidemia, CHF, ESRD with Saturday schedule, and anxiety. He was seen in the emergency department yesterday (01/29/24) for an episode during dialysis of chest pain resulting in hypotension status post taking sublingual nitro. His dialysis session was cut short. He was evaluated in the emergency department and discharged home with a more stable blood pressure. He states after he went home, he had a syncopal episode and laid on the floor until he could scoot to his recliner sometime this morning. He presents to the emergency department via EMS with a chief complaint of dyspnea. Secondary to concern for overload he was given nitro and his blood pressure dropped to 88/55 transiently. Blood pressure remains soft and patient denies chest pain. 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 At bedside he is tolerating BiPAP well, denies chest pain, denies nausea or vomiting but admits to significant anxiety. We were asked to admit for acute respiratory failure. Patient will remain in the ED until peripheral IV obtained and labs resulted. Left arm fistula with thrill. EKG changes noted from last pm to today. Mr. Grossman's troponin last pm was 23.3 and today is 1113.8. ECHO requested in ED for right heart strain as he is allergic to IV contrast. Last ECHO 04/30/23 showed normal EF of 62%, moderate DD, severe pulmonary htn. I consulted Dr. Good to acertain if this patient would benefit from our hospital and it is recommended he be transferred to the Medical Center for higher level of care. Dr. Arvizu of the ED was notified. Allergies Iodinated Contrast Media [Iodinated Contrast- Oral and IV Dye] Allergy (Verified 08/16/23 23:13) Nausea/Vomiting/Diarrhea Penicillins Allergy (Verified 08/16/23 23:13) Hives shellfish derived Allergy (Verified 08/16/23 23:13) Nausea/Vomiting/Diarrhea Home medications list reviewed: Yes Home Medications: RX: Zolpidem Tartrate [Ambien*] 10 mg PO BEDTIME PRN PRN 01/10/17 RX: Losartan Potassium 50 tab PO DAILY 08/14/22 RX: Sertraline [Zoloft*] 50 mg PO DAILY 09/11/22 RX: Gabapentin 300 mg PO BEDTIME 04/29/23 RX: Trazodone [Desyrel*] 150 mg PO BEDTIME 04/29/23 RX: Ticagrelor [Brilinta*] 90 mg PO DAILY 07/23/23 RX: Fluticasone [Flonase 50MCG Nasal [place]*] 3 spray IH DAILY 08/01/23 Ascorbic Acid [Vitamin C] 500 mg PO DAILY #30 tab 08/06/23 Aspirin [Aspirin EC 81 MG] 81 mg PO DAILY #30 tab 08/06/23 Furosemide [Lasix] 80 mg PO DAILY #30 tab 08/06/23 Polyethylene Glycol 3350 [Miralax] 17 gm PO DAILY #30 packet 08/06/23 RX: Albuterol Neb [Proventil 0.083% Neb Soln] 2.5 mg NEB Q6HP PRN #120 amp 08/06/23 RX: Atorvastatin Calcium [Lipitor] 80 mg PO BEDTIME #30 tab 08/06/23 RX: Cefpodoxime Proxetil [Vantin] 200 mg PO DAILY #5 tab 08/06/23 RX: Epoetin [Retacrit] 10,000 unit IV EVERY HD vial 08/06/23 RX: Folic Acid 1 mg PO DAILY #30 tab 08/06/23 RX: Ipratropium Neb [Atrovent*] 0.5 mg NEB [id number] PRN #120 amp 08/06/23 RX: Iron Polysaccharide Complex [Ferric X-150] 150 mg PO DAILY #30 tab 08/06/23 RX: Oxycodone HCl/Acetaminophen [Percocet 5/325 Tab*] 1 tab PO Q4H PRN #20 tab 08/06/23 RX: Tamsulosin [Flomax*] 0.8 mg PO BEDTIME #60 cap 08/06/23 Sennosides [Senokotxtra] 17.2 mg PO DAILY #60 tab 08/06/23 - Past Medical/Surgical History Diabetic: No -: ESRD on HD MWF -: Hyperlipidemia -: GERD -: Hypertension -: Depression/Anxiety -: Macular Degeneration -: cardiac stent -: RT AKA -: [id number] PPM Psychosocial/ Personal History: Patient lives at home with his family. - Family History Father -: Heart disease Mother -: Lung disease - Social History Alcohol use: No CD- Drugs: No Caffeine use: Yes Place of Residence: Home Review of Systems 10-point ROS is otherwise unremarkable General: Weakness, Malaise Eyes: Unremarkable ENT: Unremarkable Respiratory: Shortness of Breath, SOB with Excertion Cardiovascular: Edema, Other (Taking nitro for chest pain but then denies chest pain) Gastrointestinal: Unremarkable Genitourinary: Unremarkable Musculoskeletal: Unremarkable Integumentary: Unremarkable Neurological: Weakness, As per HPI Lymphatics: Unremarkable Physical Examination - Vital Signs Pulse: 101 Pulse Ox (%): 99 - Physical Exam General: Alert, Oriented x3, Mild distress, Obese, Other (On BiPAP) HEENT: Atraumatic, Normocephalic Neck: Supple Respiratory: Normal air movement Cardiovascular: Normal pulses, Regular rate/rhythm (Paced), Other (Noted EKG changes, area of ecchymosis lateral and proximal to left areola status post fall), Systolic murmur Capillary refill: <2 Seconds Gastrointestinal: Normal bowel sounds Musculoskeletal: No clubbing, Other (Right AKA) Integumentary: No rashes, Other (Ecchymosis as noted) Neurological: Normal tone, Normal affect, Abnormal speech Lymphatics: No axilla or inguinal lymphadenopathy External genitalia: Deferred Rectal: Deferred - Studies Laboratory Data (last 24 hrs) 01/30/24 01/30/24 11:26 11:26 WBC 8.40 Hgb 8.6 L Hct 27.8 L Plt Count 276 PT 13.8 H INR 1.24 Assessment and Plan - Plan Acute respiratory failure concern for PE, repeat ECHO as pt is allergic to IV contrast Labile blood pressure of ESRD with syncope and volume overload Pt appears euvolemic and cxr does not support significant overload Discussed with Dr. Good and it is recommended the pt be transferred for higher level of care Acidosis Decrease FiO2 Discussed transfer with ED MD. Discharge Plan: Transfer - Advance Directives Does patient have a Living Will: No Does patient have a Durable POA for Healthcare: No
[2024-01-30 12:10] LABS: Albumin 3.2 g/dL (3.4-5.0); Albumin/Globulin Ratio 0.7 (1.1-1.8); Anion Gap 11.9 mEq/L (5.0-15.0); Bilirubin Direct 0.4 mg/dL (0-0.2); Bilirubin Indirect, Calculated 0.3 mg/dL (0.2-0.8); Bilirubin Total 0.7 mg/dL (0.2-1.0); Globulin 4.4 g/dL (2.3-3.5); Magnesium 2.9 mg/dL (1.6-2.4); Potassium 4.9 mEq/L (3.5-5.1); Protein, Total 7.6 g/dL (6.4-8.2)
[2024-01-30 12:17] LABS: Troponin High Sensitivity 1113.8 pg/mL (<58.9)
[2024-01-30 12:24] LABS: Anisocytosis 1+; Blood Morphology Comment NOTED (NOT SEEN); Hypochromasia 1+; Macrocytosis 1+; Ovalocytes SLIGHT; Platelet Estimate ADEQ; Poikilocytosis 1+; Target Cells FEW; White Blood Cell Scan OK (OK)
--- NOTE | 2024-01-30 16:30 | P.CNS ---
Date of Consult: 01/30/24 Reason for Consult: Over volume Primary Care Provider: Please use as consult note as pt will need transfer from ED Chief Complaint: Syncope, shortness of breath History of Present Illness: t 77-year-old gentleman, well known to me from the dialysis with significant past medical history of end-stage renal disease, on hemodialysis, Saturday, Saturday, Saturday, CAD status post recent [place], hypertension, hyperlipidemia, PAD, status pos t above-knee amputation, the patient went to the dialysis Saturday, found to have low blood pressure. For that reason, the patient was transferred. The patient found i over volume. We order urgent dialysis. The patient seen on dialysis. Allergies Iodinated Contrast Media [Iodinated Contrast- Oral and IV Dye] Allergy (Verified 08/16/23 23:13) Nausea/Vomiting/Diarrhea Penicillins Allergy (Verified 08/16/23 23:13) Hives shellfish derived Allergy (Verified 08/16/23 23:13) Nausea/Vomiting/Diarrhea Home medications list reviewed: Yes Home Medications: Zolpidem Tartrate [Ambien*] 10 mg PO BEDTIME PRN PRN 01/10/17 Losartan Potassium 50 tab PO DAILY 08/14/22 Sertraline [Zoloft*] 50 mg PO DAILY 09/11/22 Gabapentin 300 mg PO BEDTIME 04/29/23 Trazodone [Desyrel*] 150 mg PO BEDTIME 04/29/23 Ticagrelor [Brilinta*] 90 mg PO DAILY 07/23/23 Fluticasone [Flonase 50MCG Nasal [place]*] 3 spray IH DAILY 08/01/23 Albuterol Neb [Proventil 0.083% Neb Soln] 2.5 mg NEB Q6HP PRN #120 amp 08/06/23 Ascorbic Acid [Vitamin C] 500 mg PO DAILY #30 tab 08/06/23 Aspirin [Aspirin EC 81 MG] 81 mg PO DAILY #30 tab 08/06/23 Atorvastatin Calcium [Lipitor] 80 mg PO BEDTIME #30 tab 08/06/23 Cefpodoxime Proxetil [Vantin] 200 mg PO DAILY #5 tab 08/06/23 Epoetin [Retacrit] 10,000 unit IV EVERY HD vial 08/06/23 Folic Acid 1 mg PO DAILY #30 tab 08/06/23 Furosemide [Lasix] 80 mg PO DAILY #30 tab 08/06/23 Ipratropium Neb [Atrovent*] 0.5 mg NEB [id number] PRN #120 amp 08/06/23 Iron Polysaccharide Complex [Ferric X-150] 150 mg PO DAILY #30 tab 08/06/23 Oxycodone HCl/Acetaminophen [Percocet 5/325 Tab*] 1 tab PO Q4H PRN #20 tab 08/06/23 Polyethylene Glycol 3350 [Miralax] 17 gm PO DAILY #30 packet 08/06/23 Sennosides [Senokotxtra] 17.2 mg PO DAILY #60 tab 08/06/23 Tamsulosin [Flomax*] 0.8 mg PO BEDTIME #60 cap 08/06/23 - Past Medical/Surgical History Diabetic: No -: ESRD on HD MWF -: Hyperlipidemia -: GERD -: Hypertension -: Depression/Anxiety -: Macular Degeneration -: cardiac stent -: RT AKA -: [id number] PPM Psychosocial/ Personal History: Patient lives at home with his family. - Family History Father Medical History: Heart disease Mother Medical History: Lung disease - Social History Smoking Status: Former smoker Alcohol use: No CD- Drugs: No Caffeine use: Yes Place of Residence: Home Review of Systems 10-point ROS is otherwise unremarkable Respiratory: Cough, Shortness of Breath, SOB with Excertion Cardiovascular: Palpitations, Orthopnea Neurological: Weakness, Numbness Physical Examination Temp Pulse Resp BP Pulse Ox 84 24 H 106/48 L 99 01/30/24 14:12 01/30/24 14:11 01/30/24 14:12 01/30/24 13:05 General: Oriented x3 HEENT: Atraumatic, PERRLA Neck: Supple, 2+ carotid pulse no bruit, JVD distended Respiratory: Crackles/rales, Expiratory wheezes, Rhonchi/gurgles Cardiovascular: Normal pulses, Normal S1 S2, Systolic murmur Gastrointestinal: Normal bowel sounds, No tenderness Musculoskeletal: No clubbing, Swelling Neurological: Normal tone, Cranial nerves 3-12 intact Laboratory Data (last 24 hrs) 01/30/24 01/30/24 01/30/24 11:26 11:26 11:26 WBC 8.40 Hgb 8.6 L Hct 27.8 L Plt Count 276 PT 13.8 H INR 1.24 Sodium 136 Potassium 4.9 D BUN 69 H Creatinine 5.96 H Glucose 165 H Magnesium 2.9 H Total Bilirubin 0.7 AST 24 ALT 15 L Alkaline Phosphatase 162 H - Problems (1) CHF exacerbation Current Visit: No Status: Acute Qualifiers: Heart failure type: systolic Qualified Code(s): I50.23 - Acute on chronic systolic (congestive) heart failure Conclusions/Impression: Assessment And Plan: 1. End-stage renal disease with hyperkalemia and over volume. I am going to do this dialysis today. We will change to sodium module and we will dialyze the patient on low potassium bath. We will evaluate the patient for tomorrow if he is going to need another session of dialysis. 2. Hypertension, currently hypotension. Hold all blood pressure medications. Agree with midodrine and dopamine. 3. Hyperkalemia. Will be dialyzed on low potassium bath. 4. Over volume. We will challenge the patient. 5. Congestive heart failure with exacerbation. We will challenge the patient. 6. Cardiogenic shock. Continue serial cardiac enzyme. Continue to challenge the patient. Follow up with Cardiology. Time spent examining the patient [id number], reviewing data, lab and radiology, placing order, discussing the case with the patient, discussing the case with the sales team manager including hospitalist, nursing staff and ICU staff, dialysis nurse, more than 75 minutes. Time Spent Managing Pts care (In Minutes): 75
[2024-01-30] MEDS ORDERED: ZOLPIDEM TARTRATE 5 MG TABLET PO SCH (21:00)
[2024-01-30 21:25] VITALS: BP 93/58; TEMP 98.5; O2SAT 100
--- NOTE | 2024-01-31 15:42 | EKG ---
Test Date: 2024-01-30 Test Time: 09:25:17 Colored Leather Setter: MEASUREMENT RESULTS: Intervals: Rate: 105 TX: 192 QRSD: 162 QT: 398 QTc: 526 [place]: P: 108 TX: 192 QRS: 260 T: 81 INTERPRETIVE STATEMENTS: Suspect arm lead reversal, interpretation assumes no reversal Sinus tachycardia Nonspecific intraventricular block Possible Right ventricular hypertrophy Inferior infarct, age undetermined Anterolateral infarct, age undetermined Abnormal ECG Compared to ECG 01/29/2024 19:11:43 Sinus rhythm no longer present Left-axis deviation no longer present Myocardial infarct finding still present Electronically Signed On 01-31-24 15:40:29 MONEY LAUNDERING INVESTIGATOR by Davin Good
== END 2024-01-30 20:32 | disposition short-term general hospital (02) ==
LOC: ER 09:13
PROC: 5A1D70Z Performance of Urinary Filtration, Intermittent, Less than 6 Hours Per Day (ICD-10-PCS; principal; 2024-01-30)
DX: E87.70 Fluid overload, unspecified (principal); J96.00 Acute respiratory failure, unspecified whether with hypoxia or hypercapnia; E87.5 Hyperkalemia; I95.9 Hypotension, unspecified; R57.0 Cardiogenic shock; I10 Essential (primary) hypertension; E78.5 Hyperlipidemia, unspecified; I50.9 Heart failure, unspecified; N18.6 End stage renal disease; F41.9 Anxiety disorder, unspecified; E87.20 Acidosis, unspecified; I25.10 Atherosclerotic heart disease of native coronary artery without angina pectoris; I25.2 Old myocardial infarction; Z99.2 Dependence on renal dialysis; Z88.0 Allergy status to penicillin; Z91.013 Allergy to seafood; Z91.048 Other nonmedicinal substance allergy status
CPT/HCPCS: 36415; 36600; 71045; 80048; 80076; 82805; 83605; 83735; 83880; 84484; 85025; 85610; 93005; 94660; 96374; 99285

== ENCOUNTER 2024-02-12 10:34 | Inpatient (IN) | payer OTHER, BC ==
[2024-02-17] MEDS ORDERED: BISACODYL 10 MG RECTAL SUPP PR PRN (19:35)
[2024-02-17 19:38] VITALS: BMI 27.8
--- NOTE | 2024-02-17 20:22 | RAD REPORT ---
Procedure: Chest Single View HISTORY: Cough COMPARISON: January 2024 FINDINGS: Mild bilateral pulmonary opacities. There may be small bilateral effusions. Pacemaker leads in place. The heart is moderately to markedly enlarged. IMPRESSION: Mild CHF
[2024-02-17] MEDS ORDERED: NITROGLYCERIN 0.4 MG/TAB SL PRN (20:24)
[2024-02-17] MEDS ORDERED: hydrOXYzine HCL 25 MG TAB PO SCH (21:00)
[2024-02-17] MEDS: POLYETHYL GLY 3350 17 GM/DOSE PO SCH (21:08)
[2024-02-17] MEDS: DOCUSATE NA/SENNA CONC 1 TAB PO SCH (21:08)
[2024-02-17] MEDS: ZOLPIDEM TARTRATE 10 MG TABLET PO PRN (21:08)
[2024-02-17] MEDS: GABAPENTIN 100 MG CAP PO SCH (21:09)
[2024-02-17] MEDS: FLUTICASONE 50MCG NASAL SPRAY NAS SCH (22:00)
[2024-02-17] MEDS ORDERED: MULTIVITAMINS,THERAPEUT 1 TAB PO PRN (23:10)
[2024-02-18] MEDS: PANTOPRAZOLE 40MG TABLET PO SCH (06:59)
[2024-02-18] MEDS: SERTRALINE HCL 50 MG TAB PO SCH (09:03)
[2024-02-18] MEDS: OCUVITE (VIT A,C & E/LUTEIN/MINERAL) TABLET PO SCH (09:03)
[2024-02-18] MEDS: CLOPIDOGREL 75 MG TABLET PO SCH (09:03)
[2024-02-18] MEDS: ASPIRIN EC 81 MG TAB PO SCH (09:03)
[2024-02-18] MEDS: ROSUVASTATIN 10 MG TAB PO SCH (09:03)
[2024-02-18] MEDS: MIDODRINE HCL 5 MG TABLET PO SCH (09:03)
[2024-02-18] MEDS: MULTIVITAMIN TAB PO SCH (09:03)
[2024-02-18] MEDS: FERROUS SULFATE 325 MG TAB PO SCH (09:04)
--- NOTE | 2024-02-18 15:25 | RAD REPORT ---
EXAMINATION: ONE VIEW CHEST XR CLINICAL INDICATION: cough TECHNIQUE: Frontal chest projection is submitted. Examination is limited by patient positioning and t echnique. COMPARISON: 02/17/2024 FINDINGS: [id number] bilateral pulmonary opacities essentially unchanged, likely pulmonary edema. The car diac silhoutte is severely enlarged in size. No displaced fractures identified. Dual lead pacer device unchanged. IMPRESSION: Mild CHF versus volume overload pattern is suspected. No significant change since yesterday's study.
[2024-02-18 20:21] LABS: Specific Gravity 1.014 (1.005-1.030); Urine Bilirubin NEGATIVE (Negative); Urine Blood 2+ (Negative); Urine Clarity Extremely Turbid (Clear); Urine Color Light-Orange (Yellow); Urine Glucose NEGATIVE (Negative); Urine Ketones NEGATIVE (Negative); Urine Micro Reflex YN NO BILL NO MICROSCOPIC; Urine Nitrite NEGATIVE (Negative); Urine Protein 2+ (Negative); Urine Urobilinogen Normal (Normal)
[2024-02-18] MEDS: HEPARIN 5000 UNIT/ML 1 ML VIAL SQ SCH (20:31)
--- NOTE | 2024-02-19 00:37 | HP ---
Date of Admission: 02/17/2024 Time Of Service: 1:00 p.m. Chief Complaint: "I got very weak. I had a heart attack. I need to get stronger." History Of Present Illness: Mr. Grossman is a 78-year-old patient with multiple medical problems includ ing remote or chronic right qamli-woa-hufr amputation; coronary artery disease; end-stage renal disea se, on hemodialysis Saturday, Saturday, Saturday; hypertension; dyslipidemia; AV blocks; and gastroesoph ageal reflux disease. The patient lives alone, developed more shortness of breath and some chest jenny n while on hemodialysis on January 29. He was diagnosed with [id number] myocardial infarction , placed on BiPAP and did receive his hemodialysis and symptoms improved somewhat. However, by the , his symptoms worsened, he had to be intubated due to respiratory distress and had left heart cat heterization where he found to have no significant coronary artery disease, but there was markedly el evated right ventricular filling pressure. An IABP was placed that is intra-ortic balloon pump and h e was sent back to the ICU. He was put on CRRT treatment and then eventually extubated on January 12. Pressures were low systemically and was put on pressors from January 31 through the and tolerated management of his blood pressures with SLED and midodrine. He did begin to resume hemodia lysis and tolerated well. He was given a course of antibiotics and completed that on February 05 a nd there were concerns of sepsis, although cultures were negative. He was discharged from the ICU an d back to the regular floor on 02/06. While in his hospital stay, he had respiratory failure requiri ng intubation, supplemental oxygenation with anxiety, has phantom limb pain in the right lower extrem ity, which is treated with Zoloft and gabapentin. In addition, he had insomnia, treated with catarac ts and zolpidem. He did have findings of an elevated white blood cell count on February 07 after h e completed antibiotics. Cultures were sent again and were negative and empiric antibiotics were res umed. He was consulted for right upper extremity edema and on exam was found to have acute cephalic and basilic superficial clots. The Infectious Disease is recommended stopping antibiotics given the elevated white blood cell count, low-grade fever and felt that the elevated white blood cell count wa s due to his blood clots. Chronically since the initial evaluation elevation, white blood cell count remained elevated. He still has decreased physical functioning, decreased mobility, and decreased a bility to perform activities of daily living. 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 Evaluation by Physical jessica found that he requires moderate assistance for bed mobilization, for [id number], and for perf orming activities of daily living including his grooming, which is contact guard assistance, minimum assistance for upper body dressing, maximal for lower body dressing and donning and doffing footwear. He was cleared by the medical team for inpatient rehabilitation and was therefore admitted to the [facility] to help him reduce risk of rehospitalization and to return to his prior level of functioning. Past Medical History: Includes allergic rhinitis; anxiety; arthritis; osteoporosis; benign prostatic hypertrophy; coronary artery disease; diverticulosis; end-stage renal disease, on hemodialysis , Saturday, Saturday; gastroesophageal reflux disease; chronic right above-knee amputation; hypertens ion; insomnia; macular degeneration; phantom limb pain; myocardial infarction. Past Surgical History: He has a colectomy, coronary stent placement, left heart catheterization in and 2023. He had colonic resection with colostomy done. He had nephrectomy, pacemaker leads ins erted in February 2022, percutaneous angioplasty in 2022. He has carpal tunnel release also and remov al of an Impella pump in August 2022 and total knee surgery in 2014 and subsequent right above-knee amp utation due to sepsis. Allergies: IODINE, PENICILLIN, SHELLFISH. Current Medications: Tylenol 650 mg every 4 hours as needed, aspirin 81 mg daily, Dulcolax 10 mg per rectum as needed, Plavix 75 mg daily, ferrous sulfate 325 mg daily, Flonase 50 mcg spray 2 twice len ly, gabapentin 100 mg 3 times daily, heparin 5000 units every 12 hours, Atarax 12.5 mg 3 times daily, midodrine 10 mg 3 times daily, Ocuvite daily, Centrum Silver daily, nitroglycerin 0.4 mg sublingual every 5 minutes as needed, Protonix 40 mg daily, GlycoLax 17 g twice daily schedule, Crestor 10 mg krystin joseph, Senokot S 2 twice daily, Zoloft 50 mg daily, tramadol 50 mg every 6 hours as needed, Nephro-Gonzalo 1 tablet daily, and Ambien 10 mg at bedtime as needed. Laboratory Studies: White blood cell count 11.7, hemoglobin 7.4, hematocrit 24.2, platelets 271. Po tassium 4.7, glucose 89, BUN 57, creatinine 5.67, calcium 8.7. Magnesium 2.3. Family History: Noncontributory. Social History: The patient lives alone in a single family home. No alcohol, tobacco, or IV drug us e. Again, his hemodialysis is Saturday, Saturday, Saturday, followed by the renal service and primary c are physician. Current Level Of Functioning: Currently, Mr. Grossman is independent for eating, supervision for groomi ng, maximum assistance for bathing, moderate assistance for upper body dressing, maximum assistance f or lower body dressing. He has a moderate assistance level for toileting and in terms of gait, he patel s right above-knee amputation and uses wheelchair mobilization. Physical Examination: Vital Signs: Blood pressure 117/47, pulse 72, respiratory rate of 18 to 20, temperature 97.4, oxygen saturation 93%. Weight 183 pounds, height 5 feet 8 inches, BMI 27.8. General: Mr. Grossman is sitting in a chair beside bed. HEENT: He is normocephalic, atraumatic. Sclerae anicteric. Oropharynx pink and moist. Neck: Supple. Extremities: He has a right above-knee amputation and has some venous stasis changes in the left low er extremity. He also has some mild pain in the left hip and buttocks region, but denies any groin i ssues such as rash, burning, tingling, itching from the Iqra auris, which again he has been coloni zed with and the testing was done over about a year and a half ago. Neurological: He has diffuse weakness in the upper extremities bilaterally and the lower extremity o n the left. Stocking-glove loss, left lower extremity and upper extremities, decreased reflexes. Rehab And Medical Assessment And Plan: Mr. Grossman is admitted to inpatient rehabilitation unit with i mpairment category 14, cardiac. His impairment group code is 09, cardiac. His etiologic diagnosis i s CHF exacerbation. His comorbid conditions include the allergic rhinitis; anxiety; depression; arth ritis; arthrosclerosis; benign prostatic hypertrophy; coronary artery disease; diverticulosis; end-st age renal disease, on hemodialysis Saturday, Saturday, Saturday; hypertension; insomnia; macular degener ation; myocardial infarction; and phantom limb pain from his right above-knee amputation. Plan: 1.He will have physical and occupational therapy and if need be speech therapy 3.5 hours, 5 of 7 day s. 2.We will continue with pain management including Tylenol and tramadol along with gabapentin. We wi ll continue with stroke risk reduction with aspirin 81 mg daily and Plavix 75 mg daily. Continue wit h phantom limb pain management with gabapentin 100 mg 3 times daily. DVT prophylaxis provided with h eparin 5000 units twice daily. His Atarax 12.5 mg and Ambien to help with sleep and itching and harshad rgic-type symptoms. Nephro-Gonzalo for his malnutrition and anemia and will continue Senokot for consti pation and Crestor for dyslipidemia, Protonix for GE reflux, Nitrostat for myocardial type pain. He also has Ocuvite on board. We will continue. Comorbidities That Are Impacting Rehabilitation: Mr. Grossman of course has a right above-knee amputati on and is not able to stand and ambulate. He is working hard to use a sliding board. He will be tra nsferring largely by that, mobilizing by wheelchair. He also has the Iqra auris colonization and will be kept in contact isolation throughout his stay at hospital to minimize the risk of spread to o ther patients and staff. He also has comorbidities that include management of blood sugars, blood pr essure. He has elevated cholesterol and those are addressed and of course he has end-stage renal dis ease, on hemodialysis and he is scheduled for therapy, will be worked around hemodialysis schedule[facility]. Rehab Specific Plan: Mr. Grossman will have physical, occupational, and if need be speech therapy to he lp him in his transferring from the bed to a chair, to a wheelchair, to a toilet on and off and in an d out of the shower. Therapy to help with upper and lower body dressing, donning and doffing footwea r. Also, to help him mobilize at least 250 feet with upper extremities and left lower extremity to b e able to negotiate the transfers and perhaps a few steps up and down with bilateral upper extremitie s and the left lower extremity. In addition to perform his all cognitive functioning including manag ing medications, making good safe decisions as he transfers and mobilizes and speech may be required to help. Mr. Grossman has a good understanding of the process of admission to the inpatient rehabilitation facili and how he will benefit with physical, occupational, and if need be speech therapy. He will have 24 hours a day, 7 days a week skilled rehabilitation nursing, daily physician evaluation and manageme nt, and social service evaluation and management for discharge planning, home equipment, physician fo llowup, and continuing therapy. If need be, additional help will be sought for the hospital service, cardiology service, and infectious disease service. Barriers To Discharge: He currently does have a colonization with Iqra auris and will have to go to facilities that can keep him in isolation if he is unable to be back home. Potentially, may pose a challenge. Also, he does have of course history of myocardial infarction, an additional risk. Als o, has DVTs noted, superficial. Clots noted and is on heparin along with aspirin and Plavix that pos e risk of bleeding and of course very difficult in the patient with renal failure who produces not an abnormal amount of red blood cells to begin with. Length Of Stay: About 2 weeks. Disposition: The patient will be discharged back home with continued therapy via Home Health, contin ue with dialysis scheduled per the renal service. Prognosis: Fair. Code Status: Full code. Rehab Specific Goals: 1.Mr. Grossman will become independent with upper body dressing, lower body dressing, donning and doffi ng shoe in the left foot. 2.Independent with transferring from bed to a chair, wheelchair, toilet, and shower. 3.Independently mobilize wheelchair 250 feet. 4.Able to go up and down maybe 5 steps with bilateral handrails on the left leg. 5.Able to ambulate with the left leg and rolling walker at least 50 feet household distances. 6.Perform all judgment, processing of information, keeping up with medications all with independence . The above goals were reviewed with Mr. Grossman and he is in agreement. By signing this document, I acknowledge I personally performed a full physical examination on Mr. Jones tt no later than 24 hours after his admission to the inpatient rehabilitation unit and determine he i s able to tolerate the above course of treatment at an intensive level for reasonable period of time. A detailed individualized plan of care for him will be completed by hospital day 4 based on the pre admission screen, history and physical, and therapy evaluations. PAUL Voice ID: [id number]
--- NOTE | 2024-02-19 03:43 | CON ---
Date of Consultation: 02/18/2024 Reason For Consultation: Elevated BUN and creatinine, fluid overload, end-stage renal disease. History Of Present Illness: This is a 78-year-old gentleman, well known to me from the dialysis with significant past medical history of PAD, status post right above-knee amputation; end-stage renal disease, on hemodialysis, Saturday, Saturday, Saturday, last dialysis yesterday; hyperlipidemia, AV block, GERD. The patient was admitted back last month with non-ST elevation SD, shock secondary to septic shock and cardiogenic shock required intubation, CRRT. The patient was extubated. Weaned off from CRRT started on conventional dialysis the patient was found to have history of bacteremia. The patient switched from CRRT to conventional dialysis after recovered from his shock to regular dialysis transfer to the floor. The patient was transferred to the rehab for physical therapy. Past Medical History: Includes: 1. COPD. 2. Osteoporosis. 3. PAD, status post right above-knee amputation. 4. CAD complicated with congestive heart failure. 5. End-stage renal disease, on hemodialysis, Saturday, Saturday, Saturday. 6. GERD. 7. Hyperlipidemia. 8. Hypertension. Past Surgical History: Include: 1. Colectomy. 2. PTCA. 3. Cardiac cath. 4. Colostomy. 5. Carpal tunnel. 6. Right above-knee amputation. 7. Total knee replacement. Allergies: PENICILLIN, IODINE, AND SHELLFISH. Medications: Tylenol, aspirin, Dulcolax, gabapentin, Protonix, Crestor, Senokot, tramadol. Family History: Positive for hypertension and diabetes. Social History: Lives alone. Denied smoking. Denied drinking. Denied drugs abuse. Review of Systems: Head and Neck: No red eye. No ear pain. GI: No nausea, no vomiting. : No polyuria, no dysuria, no hematuria. STRUCTURAL ENGINEERING DRAFTING OFFICER: Not applicable. Respiratory: Has shortness of breath. Cardiovascular: Has orthopnea. Endocrine: No polydipsia. Skin: No rash. Neuro: Has neuropathy. Current Medications: The patient is on Tylenol, aspirin, Plavix, ferrous sulfate, hydroxyzine, midodrine, multivitamin, nitroglycerin, pravastatin, Senokot, tramadol, Vitamin C, and Ambien. Physical Examination: Vital Signs: Blood pressure 143/74, pulse of 74. Chest: Crackles bilateral. Heart: S1, S2. Systolic murmur. Abdomen: Soft, nontender. Extremities: Right above-knee amputation. +1 edema. Neurologic: No focality. Laboratory Data: WBC 9.2, hemoglobin 10.2. Sodium 135, potassium 3.6, bicarb 27, BUN 42, creatinine 4.6. No new lab data. Chest x-ray, cardiomegaly with congestion. Lab data from other facility: WBC 11.7, hemoglobin 7.4, hematocrit 24.2. BUN 57, potassium 4.7, creatinine 5.6, calcium 8.7. Assessment And Plan: 1. End-stage renal disease. We will resume dialysis on Saturday, Saturday, Saturday and we will follow up the patient. 2. Hypertension, controlled, optimal. We will utilize blood pressure for more ultrafiltration. 3. Congestive heart failure with exacerbation. We will try to establish better volume control. 4. Shock secondary to [id number] myocardial infarction, recovered. Continue supportive care. 5. Deconditioning. Continue physical therapy, occupational therapy. Spent examining the patient [id number] reviewing data lab and the radiology and the records from her previous hospitalization discussing the case with the patient discussing the case with the residential team leader including hospitalist and nursing staff more than 75 minutes BRAD Voice ID: [id number] Report ID: [id number] MTDD
[2024-02-19] MEDS: PANTOPRAZOLE 40MG TABLET PO SCH (08:44)
[2024-02-19] MEDS: hydrOXYzine HCL 25 MG TAB PO PRN (17:12)
[2024-02-19 17:59] LABS: Albumin 2.6 g/dL (3.4-5.0); Anion Gap 15.9 mEq/L (5.0-15.0); Magnesium 2.3 mg/dL (1.6-2.4); Phosphorus 7.2 mg/dL (2.5-4.9); Potassium 4.9 mEq/L (3.5-5.1); Prealbumin 8.6 mg/dL (20-40)
[2024-02-19 18:07] LABS: Absolute Eosinophils 0.4 K/uL (0-0.5); Absolute Lymphocytes (CBC) 0.2 K/uL (0.7-4.9); Absolute Monocytes 0.1 K/uL (0.1-1.3); Absolute Neutrophil 9.8 K/uL (1.8-8.0); Eosinophils % 3.4 % (0-4.4); Hematocrit 24.6 % (39.6-49.0); Hemoglobin 8.2 g/dL (13.6-17.9); Lymphocytes % 2.4 % (15.3-44.8); MCH 30.1 pg (27.0-35.0); MCHC 33.1 g/dL (32.0-36.0); MPV 6.7 fL (7.6-11.3); Monocytes % 0.7 % (3.3-12.3); Neutrophils % 93.5 % (41.7-73.7); Nucleated Red Blood Cells % 0.2 % (0-0); Platelets 436 thou/uL (152-406); RBC Red Blood Cell Count 2.71 M/uL (4.33-5.43); Red Cell Distribution Width 18.8 % (12.1-15.2)
[2024-02-19] MEDS: MANNITOL 25% 12.5 GM/50 ML VIAL IV PRN (19:15)
[2024-02-19 19:16] LABS: Anisocytosis 1+; Band Neutrophils 5 % (0-1); Blood Morphology Comment NOTED (NOT SEEN); Differential Total Cells Count 100; Eosinophils 3 % (0-3); Lymphocytes 4 % (15-42); Monocytes 2 % (0-10); Platelet Estimate INCR; Segmented Neutrophils 86 % (40-80)
[2024-02-19] MEDS: EPOETIN ALFA 10,000 UNIT/ML VIAL IV SCH (20:15)
[2024-02-19] MEDS: GABAPENTIN 100 MG CAP PO SCH (21:30)
--- NOTE | 2024-02-20 00:19 | PN ---
Date of Progress Note: 02/19/2024 Time Of Service: 1:40 p.m. Subjective: Mr. Grossman is doing well. Denies any fevers, chills, nausea, vomiting, myalgias, arthral gias, rash, headache, weight change. Shortness of breath is improving. No complaints. Review of Systems: Again, no fevers, chills. He is doing better. Pain is managed and DVT risk is again managed. His r ight leg amputation stump area does have some mild phantom limb pain, but he said that is unmanageabl e. It is around 6. Despite that number of 6, he is able to do very well. His Iqra auris coloniz ation does require contact isolation and that was confirmed through a review from [facility] in 2022. The testing was done around November. Physical Examination: Vital Signs: Blood pressure is 119/48, pulse 66, respiratory rate of 16, temperature 98, oxygen satu ration 92% on room air. General: Mr. Grossman is lying in bed. He is in no significant distress. HEENT: Normocephalic, atraumatic. Sclerae anicteric. Oropharynx moist. Neck: Supple. Chest: Clear. Extremities: No significant clubbing, cyanosis, or edema in the lower extremity on the left and ampu tation is on the right. Laboratory Studies: White blood cell count 10.4 with neutrophils 93.5, hemoglobin is 8.2, hematocrit 24.6, platelets 436. His sodium 134, potassium 4.9, chloride 100, BUN 99, creatinine 7.82. Procalc itonin was 1.05 and lactate dehydrogenase 175. Albumin 2.6, prealbumin 8.6. His urinalysis from the showed 2+ protein, 500 esterase, 2+ blood, extreme turbidity. Cultures are pending. He did hav e blood cultures done x1. X-ray/imaging: No new x-rays or imaging done. Consultations: He is followed by the renal service and is receiving hemodialysis per schedule. Progress Made With Physical, Occupational, And Speech Therapy: Today with physical therapy, bed mobi lity, turning in bed done with maximum assistance. Sit to stand and stand pivot transfers, maximum a ssistance x2 being required. Squat transfers, maximum assistance and multiple therapies required. H e did mobilize a wheelchair 50 feet with contact guard assistance. Did lower extremity exercises on the left while sitting in a wheelchair, knee extension and flexion and circling. With occupational t herapy, he required moderate assistance with bed mobilization and to edge of bed demonstrated fair ba georgi, but still needed maximal assistance from bed to wheelchair transfer. Maximum assistance with donning socks and shoes. While he was in therapy at the beginning, blood pressure was 192/48, pulse 66 and at the end of therapy, blood pressure did go up to 108/82, pulse of 70, and then after 5 minut es, 181/85, pulse of 68, and his p.r.n. medications were addressed. Very elevated blood pressure. W ith speech, he completed the BIMS. He scored 10. Completed the SLUMS and scored 11 and speech patho vanna is working with him for short-term memory loss for planning and situational awareness. Assessment: Mr. Grossman is a 78-year-old patient in the rehabilitation unit with congestive heart fail ure exacerbation. He has decreased mobility, decreased physical functioning, cognitive impairment th at is mild to moderate. Anxiety; depression; allergies rhinitis; arthritis; arthrosclerosis; benign prostatic hypertrophy; coronary artery disease; diverticulosis; end-stage renal disease, on hemodialy sis Saturday, Saturday, Saturday; hypertension; macular degeneration; myocardial infarction; phantom denney b pain; and right above-knee amputation. Plan: 1.We will continue with physical, occupational, and speech therapy 3.5 hours, 5 of 7 days. 2.His list of comorbid condition medications are being continued including aspirin and Plavix for st roke risk reduction. The gabapentin for phantom limb pain, heparin for DVT risk reduction, and Ambie n as needed for sleep and itching. He did have earlier today some worry about sedation and gabapenti n 2 doses in the morning were actually discontinued, but the 100 mg at night was continued. Also, Pr otonix for GE reflux continued, Nitrostat for myocardial infarction, Ocuvite for his eye health. Comorbidities Impacting Rehabilitation: He has significant difficulty with transfers given the right above the knee amputation and of course the Iqra auris colonization making him require contact is olation throughout his hospitalization. He has also end-stage renal disease for which the therapy is working around. He is possibly going to require retirement as at this point may not be able to go home and have 24 hour care without significant help. 2 person help is required. LIZZ/J LUIS Voice ID: [id number] Report ID: [id number]
[2024-02-20] MEDS: ACETAMINOPHEN 325 MG TABLET PO PRN (03:31)
[2024-02-20] MEDS: MULTIVITAMINS,THERAPEUT 1 TAB PO SCH (08:06)
[2024-02-20] MEDS: TRAMADOL HCL 50 MG TAB PO PRN (12:00)
[2024-02-20] MEDS: SODIUM CHLORIDE 1 GM TAB PO SCH (15:28)
[2024-02-20] MEDS ORDERED: EPOETIN ALFA 10,000 UNIT/ML VIAL IV SCH (16:15)
--- NOTE | 2024-02-20 16:41 | PN ---
Date of Progress Note: 02/20/2024 Subjective: The patient was admitted to the rehab for rehabilitation. The patient participating in rehab. Objective: Vital Signs: Blood pressure of 101/54, pulse of 60. Chest: Crackles on the bases. Heart: S1, S2 regular. Abdomen: Soft, nontender. Extremities: Right above-knee amputation plus edema. Neurologic: Alert. No focality. Laboratory Data: Hemoglobin 8.2, sodium 134, potassium 4.9, bicarb 23, BUN 99, creatinine 7.8, calci um 8.7, phosphorus 7.2. Current Medications: The patient on, include hydroxyzine, aspirin, Plavix, heparin, pravastatin, nit roglycerin, gabapentin, Tylenol, pantoprazole. Assessment And Plan: 1.End-stage renal disease, overvolume. We will continue the patient on dialysis. We will challenge the patient. Reinforce fluid restriction. 2.Hypertension, controlled, optimal. We will utilize blood pressure for more ultrafiltration. 3.Secondary hyperparathyroidism. Patient poor compliant with binder and diet. Reinforce the patien t for compliance. We will follow up. 4.Deconditioning. Continue PT, OT. DANIELLE/J LUIS Voice ID: [id number] Report ID: [id number]
[2024-02-20] MEDS: SEVELAMER CARBONATE 800 MG TABLET PO SCH (17:36)
[2024-02-20] MEDS: MIDODRINE HCL 5 MG TABLET PO ONE (18:46)
--- NOTE | 2024-02-21 00:01 | PN ---
Date of Progress Note: 02/20/2024 Time Of Services: 1:40 p.m. Subjective: Mr. Grossman is resting in a chair beside the bed. He denies any significant phantom limb pain and a very high right mgjil-bzj-qnkl amputation. Left lower extremity is well. Actually feelin g pretty good with his therapy so far. No new complaints. Review of Systems: Denies any significant fevers, chills, nausea, vomiting, myalgias, arthralgias, rash, or psychiatric complaint. He is a hemodialysis patient as well and he is on hemodialysis Saturday, Saturday, Saturday. Physical Examination: Vital Signs: Blood pressure 119/48, down to 101/54; pulse 66 to 76; respiratory rate 16 to 20; tempe rature 97.9; oxygen saturation 98%. General: Mr. Grossman again is sitting in a chair beside the bed. HEENT: He is normocephalic, atraumatic. Sclerae anicteric. Oropharynx pink and moist. Extremities: There is a very high right gfsrh-cjz-tmzu amputation stump with good hemostasis. Left lower extremity showed no significant edema or cyanosis. Laboratory Studies: Yesterday, white blood cell count 10.4, neutrophils 93.5, hemoglobin 8.2, platel ets 436. His sodium was 134, potassium 4.9, chloride 100, BUN 99, creatinine was 7.82, again dialysi s patient. He has glucose of 115. Calcium 8.7, phosphorus 7.2, magnesium 2.3. Lactate dehydrogenas e 175. Albumin 2.6. Prealbumin 8.6. Procalcitonin from the 8th was 1.05. He did have as expected, again he is a renal patient, on urinalysis: Extreme turbidity, 2+ blood, 500 esterase, 2+ protein. Urinalysis from the 7th did show greater than 100,000 colony-forming units and 3+ yeast. X-ray/imaging: No new x-ray or imaging. He is followed by the renal service and they are managing hemodialysis and comorbid conditions. Progress Made With Physical, Occupational, And Speech Therapy: Today, with therapy, moderate assista nce for bed mobility, supine to edge of bed. He did with fair tolerance sitting balance at edge of b ed, but did need maximum assistance x2 for bed to wheelchair transfer, for squat to pivot transfer. Transfer using a grab bar and shower, maximum assistance. Able to perform showers with contact guard assistance, wash buttocks and feet, perform upper body dressing at supervision level, long sleeve sh irt able to be put on. Did seem to be much better today than yesterday, per the therapist. Regarding speech, worked on cognitive skills, spatial orientation, organizational thinking, working m cristino. Did answer questions related to temporal and spatial orientation with 90% accuracy, minimum a ssistance. Needs moderate assistance for divergent naming. He is able to use working memory for 2 t o 3 units of information with 80% accuracy. Assessment: Mr. Grossman is a 78-year-old patient, in rehabilitation unit with congestive heart failure exacerbation. He is doing very well, using incentive spirometry. He is an end-stage renal disease patient, on hemodialysis with a chronic high right ztwez-rbl-mxnf amputation. Also has decreased mob ility, decreased physical functioning, chronic anemia related to renal failure. He has Plavix on boa rd along with aspirin for stroke risk reduction, ferrous sulfate for iron deficiency, gabapentin for neuropathic pain. He has midodrine for low blood pressures and that supporting the blood pressure. He has Ocuvite eyedrops on board, Protonix for GE reflux, Crestor for dyslipidemia, Zoloft for depres skye. He has sodium chloride tablets added for hyponatremia. Nephro-Gonzalo on board and Valorie as wel l to help with phosphate management. Plan: 1.Again, physical and occupational therapy along with speech therapy 3.5 hours, 5 of 7 days. 2.Continue hemodialysis per hemodialysis service. 3.We will continue addressing his issues of pain as noted. Continue with iron supplementation, reflux medications, dyslipidemia medications. He again has a good control of the phantom limb pain. LB/MODL Voice ID: [id number] Report ID: [id number]
[2024-02-21] MEDS: SEVELAMER CARBONATE 800 MG TABLET PO SCH (12:39)
--- NOTE | 2024-02-21 13:44 | P.RH.PN ---
Estimated Length of Stay: 12 Expected Discharge Date: 02/27/24 Discharge Disposition Plan: Home Family Support: Yes Care Home Goal: Mobility, Transfers, Self Care Vital Signs: Last Vital Signs Temp 98.4 F 02/21/24 08:00 Pulse 74 02/21/24 08:00 Resp 20 02/21/24 08:00 BP 106/38 L 02/21/24 08:00 Pulse Ox 97 02/21/24 08:00 Laboratory: Laboratory Last Values WBC 10.40 thou/uL (4.3-10.9) 02/19/24 17:20 RBC 2.71 M/uL (4.33-5.43) L 02/19/24 17:20 Hgb 8.2 g/dL (13.6-17.9) L 02/19/24 17:20 Hct 24.6 % (39.6-49.0) L 02/19/24 17:20 MCV 91.0 fL (80-100) 02/19/24 17:20 MCH 30.1 pg (27.0-35.0) 02/19/24 17:20 MCHC 33.1 g/dL (32.0-36.0) 02/19/24 17:20 RDW 18.8 % (12.1-15.2) H 02/19/24 17:20 Plt Count 436 thou/uL (152-406) H 02/19/24 17:20 MPV 6.7 fL (7.6-11.3) L 02/19/24 17:20 Plt Distribution Width Cancelled 02/18/24 05:00 Absolute Nucleated RBC Cancelled 02/18/24 05:00 Neutrophils % 93.5 % (41.7-73.7) H 02/19/24 17:20 Lymphocytes % 2.4 % (15.3-44.8) L 02/19/24 17:20 Monocytes % 0.7 % (3.3-12.3) L 02/19/24 17:20 Eosinophils % 3.4 % (0-4.4) 02/19/24 17:20 Basophils % 0.0 % (0-1.3) 02/19/24 17:20 Nucleated RBC % Cancelled 02/18/24 05:00 Absolute Neutrophils 9.8 K/uL (1.8-8.0) H 02/19/24 17:20 Segmented Neutrophils 86 % (40-80) H 02/19/24 17:20 Band Neutrophils 5 % (0-1) H 02/19/24 17:20 Absolute Lymphocytes 0.2 K/uL (0.7-4.9) L 02/19/24 17:20 Lymphocytes 4 % (15-42) L 02/19/24 17:20 Monocytes 2 % (0-10) 02/19/24 17:20 Absolute Monocytes 0.1 K/uL (0.1-1.3) 02/19/24 17:20 Eosinophils 3 % (0-3) 02/19/24 17:20 Absolute Eosinophils 0.4 K/uL (0-0.5) 02/19/24 17:20 Absolute Basophils 0.0 K/uL (0-0.5) 02/19/24 17:20 Diff Path Review Cancelled 02/18/24 05:00 Platelet Estimate Incr 02/19/24 17:20 Anisocytosis 1+ 02/19/24 17:20 Morphology Comment Noted (NOT SEEN) 02/19/24 17:20 Sodium Cancelled 02/20/24 05:00 Potassium Cancelled 02/20/24 05:00 Chloride Cancelled 02/20/24 05:00 Carbon Dioxide Cancelled 02/20/24 05:00 Anion Gap Cancelled 02/20/24 05:00 BUN Cancelled 02/20/24 05:00 Creatinine Cancelled 02/20/24 05:00 Est GFR (CKD-EPI) Cancelled 02/20/24 05:00 Glucose Cancelled 02/20/24 05:00 Calcium Cancelled 02/20/24 05:00 Phosphorus Cancelled 02/20/24 05:00 Magnesium 2.3 mg/dL (1.6-2.4) 02/19/24 17:20 Lactate Dehydrogenase 175 U/L (87-241) 02/19/24 17:20 NT-Pro-B Natriuret Pep Cancelled 02/18/24 05:00 Albumin Cancelled 02/20/24 05:00 Prealbumin 8.6 mg/dL (20-40) L 02/19/24 17:20 Procalcitonin 1.05 ng/mL (<0.50) H 02/19/24 17:20 Urine Color Light-orange (Yellow) 02/18/24 19:36 Urine Clarity Extremely turbid (Clear) H 02/18/24 19:36 Urine pH 6.0 (5.0-7.0) 02/18/24 19:36 Ur Specific [place] 1.014 (1.005-1.030) 02/18/24 19:36 Glucose (UA)(Auto) Negative (Negative) 02/18/24 19:36 Urine Ketones Negative (Negative) 02/18/24 19:36 Urine Blood 2+ (Negative) H 02/18/24 19:36 Urine Nitrite Negative (Negative) 02/18/24 19:36 Urine Bilirubin Negative (Negative) 02/18/24 19:36 Urine Urobilinogen Normal (Normal) 02/18/24 19:36 Ur Leukocyte Esterase 500 Omari/uL (Negative) H 02/18/24 19:36 Urine Total Protein 2+ (Negative) H 02/18/24 19:36 Weight: 183 lb Wound Present: No Closed Surgical Incision Present: No Negative Pressure Wound Therapy Present: No Physician Update: Labs were reviewed and are stable. However he is very sedated. WC 20' with max assist. Two person transfers with max assist. Showering, lower body dressing mod assist. Will do ABG and urine screen. Christiana has medical power of assistant attorney general. Summary: Patient's care plan and roasterman goals have been reviewed and revised as necessary. Please see the Rehabilitation Signature page for all necessary signatures.
[2024-02-21 16:36] LABS: Albumin 2.5 g/dL (3.4-5.0); Phosphorus 5.4 mg/dL (2.5-4.9)
--- NOTE | 2024-02-21 23:16 | PN ---
Date of Progress Note: 02/21/2024 Chief Complaint: End-stage renal disease, severe deconditioning, history of congestive heart failure with diastolic dysfunction, chronic hypotension and intradialytic hypotension. Subjective: The patient is admitted to rehab. He denies complaints. Physical Examination: Lungs: Clear to auscultation bilaterally. Heart: S1, S2. Abdomen: Soft. Extremities: Slight edema. Impression And Plan: 1.End-stage renal disease, mild fluid overload. The patient will have dialysis with ultrafiltration . Continue low-sodium diet. P.o. fluid restriction. 2.Hypertension. Adjust medication according to blood pressure. Monitor blood pressure closely. 3.Secondary hyperparathyroidism of renal origin. Continue binders and low phosphorus diet. 4.Deconditioning. Physical therapy and occupational therapy are pending. 5.Anemia on chronic kidney disease. Monitor hemoglobin level. Adjust EMMY according to lab results. ANTHONY/J LUIS Voice ID: [id number] Report ID: [id number]
--- NOTE | 2024-02-22 17:28 | RAD REPORT ---
EXAMINATION: ONE VIEW CHEST XR CLINICAL INDICATION: Male, 78 years old.,INCREASE COUGHING TECHNIQUE: Frontal chest projection is submitted. Examination is limited by patient positioning and t echnique. COMPARISON: 02/18/2024 FINDINGS: Bibasilar effusions and underlying airspace disease, grossly stable. Decreased inspiratory effort denney its evaluation. Right chest wall pacer/AICD in place. No pneumothorax or sizable effusion. Stable cardiomegaly. Mediastinal contours are unremarkable. IMPRESSION: Stable findings as above.
--- NOTE | 2024-02-22 19:01 | RAD REPORT ---
EXAM: CT Head Brain Wo Cont HISTORY: confused COMPARISON: November 22, 2023 TECHNIQUE: Multiple contiguous axial images were obtained for a CT of the brain without contrast. Sag ittal and coronal reformats were performed. One or more of the following dose reduction techniques were used: Automated exposure control, adjus tment of the mA and kV according to patient size, and iterative reconstruction. Unless otherwise specified, incidental findings do not require dedicated imaging follow-up. FINDINGS: No evidence of hydrocephalus, intracranial hemorrhage, or extra-axial fluid collection. Mild brain atrophy with mild periventricular and deep white matter chronic microvascular ischemic ch anges, stable. The calvarium is intact. The visualized paranasal sinuses and mastoid air cells are essentially clear . IMPRESSION: No evidence of acute intracranial abnormality. Stable changes of chronic small vessel ischemic disease.
--- NOTE | 2024-02-23 02:35 | PN ---
Date of Progress Note: 02/22/2024 Chief Complaint: End-stage renal disease, severe deconditioning, congestive heart failure, chronic h ypotension, intradialytic hypotension. Subjective: The patient is admitted to rehab floor today. He is undergoing workup for altered menta l status and facial droop. He developed right facial droop. Review of Systems: Denies chest pain, palpitation. The patient is alert, oriented x2. Physical Examination: Lungs: Clear to auscultation bilaterally. Heart: S1, S2. Abdomen: Soft, benign. Extremities: No edema. Impression And Plan: 1.End-stage renal disease, mild fluid overload. He was treated with dialysis yesterday. Volemia is controlled. Continue p.o. fluid restriction, low-sodium diet. 2.Hypertension. Continue to monitor blood pressure and adjust medication according to blood pressur e log. 3.Secondary hyperparathyroidism of renal origin. Continue binders and low-phosphorus diet. 4.Deconditioning. Physical therapy, occupational therapy per Primary Team. 5.Anemia due to chronic kidney disease. Monitor hemoglobin level and adjust EMMY. 6.Generalized weakness and altered mental status. The patient is undergoing workup with Neurology to rule out cerebrovascular accident. EB/MODL Voice ID: [id number] Report ID: [id number]
--- NOTE | 2024-02-23 20:04 | PN ---
Date of Progress Note: 02/23/2024 Chief Complaint: End-stage renal disease, severe deconditioning, history of congestive heart failure , diastolic dysfunction, chronic hypotension, intradialytic hypotension. Review of Systems: The patient is feeling better today. Physical Examination: Lungs: Clear to auscultation bilaterally. Heart: S1, S2. Abdomen: Soft. Extremities: Minimal edema. Impression And Plan: 1.End-stage renal disease, mild fluid overload. Continue p.o. fluid restriction. Next, dialysis to [place] with ultrafiltration to control volemia. 2.Hypertension. Continue current blood pressure medication. 3.Secondary hyperparathyroidism of renal origin. Continue binders. 4.Deconditioning. Physical therapy and occupational therapy per primary team. 5.Anemia of chronic kidney disease. Monitor hemoglobin level. ANTHONY/J LUIS Voice ID: [id number] Report ID: [id number]
[2024-02-24] MEDS: CYANOCOBALAMIN 1000MCG/ML INJ SQ ONE (14:24)
[2024-02-24 19:33] LABS: Absolute Eosinophils 0.4 K/uL (0-0.5); Absolute Lymphocytes (CBC) 0.5 K/uL (0.7-4.9); Absolute Neutrophil 10.7 K/uL (1.8-8.0); Basophils % 0.2 % (0-1.3); Eosinophils % 3.3 % (0-4.4); Hematocrit 25.7 % (39.6-49.0); Hemoglobin 8.3 g/dL (13.6-17.9); Lymphocytes % 4.2 % (15.3-44.8); MCH 29.2 pg (27.0-35.0); MCHC 32.2 g/dL (32.0-36.0); MCV 90.7 fL (80-100); MPV 6.8 fL (7.6-11.3); Monocytes % 8.3 % (3.3-12.3); Platelets 644 thou/uL (152-406); RBC Red Blood Cell Count 2.83 M/uL (4.33-5.43); Red Cell Distribution Width 18.3 % (12.1-15.2)
[2024-02-24 20:14] LABS: Albumin 2.6 g/dL (3.4-5.0); Anion Gap 14.2 mEq/L (5.0-15.0); Magnesium 2.2 mg/dL (1.6-2.4); Phosphorus 5.3 mg/dL (2.5-4.9); Potassium 4.2 mEq/L (3.5-5.1); Prealbumin 6.5 mg/dL (20-40)
--- NOTE | 2024-02-24 23:02 | PN ---
Date of Progress Note: 02/24/2024 Chief Complaint: End-stage renal disease, on hemodialysis. Subjective: The patient is undergoing rehab. He has multiple medical problems. He developed some a ltered mental status. He has severe deconditioning, congestive heart failure with diastolic dysfunct ion, chronic hypotension, intradialytic hypotension. Review of Systems: The patient denies complaints today. Physical Examination: Lungs: Clear to auscultation bilaterally. Heart: S1, S2. Abdomen: Soft. Extremities: Minimal edema. Impression And Plan: 1.End-stage renal disease, mild fluid overload. The patient will have dialysis and ultrafiltration will be done today with dialysis. 2.Hypertension. Continue current blood pressure medication. 3.Secondary hyperparathyroidism. Continue binders. Monitor phosphorus level. 4.Deconditioning. Physical therapy and occupational therapy per Primary team. 5.Anemia of chronic kidney disease. Monitor hemoglobin level. EB/MODL Voice ID: [id number] Report ID: [id number]
--- NOTE | 2024-02-25 09:38 | PN ---
Date of Progress Note: 02/24/2024 Time Of Service: 1:50 p.m. Subjective: Mr. Grossman is sitting in a chair beside bed, still somewhat sleepy, but could be stimulat ed to interact. He typically will drop items held in the hand as the hand is outstretched with wrist extended, wrist may flop and negative myoclonus. He is appropriate though in terms of his ability t o respond directly to questions, move arms and legs. His movements are symmetric. Review of Systems: No fevers or chills. Denies any significant phantom limb pain in the right lower extremity high abov e-the-knee amputation stump site. There was some redness noted when he went to receive the heparin 5 000 units subcutaneous shot in the abdomen area, but there was some bleeding. Physical Examination: Vital Signs: Blood pressure is 128/48, pulse 88, respiratory rate 18, temperature 97, oxygen saturat ion 91%. Mr. Grossman again is sitting in a chair beside bed and more interactive today. The family wa s concerned about his sleepiness and did request him a transfer to acute care. The patient is being followed by the renal service, hemodialysis done today, the patient's medical power of att orney was asking about his possible transfer. He did have hemodialysis today, last creatinine was 6. 68 on 11/23 and BUN 69, those did decrease from 7.82, and 99 on the . He does have blood draw wit h hemodialysis since he is unable to have regular blood draws. The question was attempted to be ente red, but an arterial blood gas could not be done. There is a possibility that the patient may be ret aining CO2 on incentive spirometry, barely moves the incentive spirometer about 250 mL and he will be strongly encouraged to continue. The possibility of using a BiPAP to assist with breathing is to be entertained and the renal service may be arterial blood gas to help with his evaluation a nd rule out possibility of CO2 retention and hypoxia as well. It is noted that his oxygen saturation s have been around 94% on 2 L of oxygen. Otherwise in terms of his examination, he has no focal weak ness in upper extremities and the right lower extremity has high obpmm-opj-vgfe amputation and no sig nificant swelling in the lower extremities is adjusted such as deep vein thrombosis. X-ray Imaging: A head CT scan was done on the . The study showed no evidence of any acute intracranial abnormalities. There were stable changes of chronic small vessel ischemic disease noted. His chest x-ray also done on the showed stable findings. The right chest wall pacemake r AICD in place. No pneumothorax or sizable effusions, stable cardiomegaly, mediastinal contours are unremarkable. There is decreased inspiratory effort noted. Progress Made With Physical, Occupational, And Speech Therapy: Today, with physical therapy, complet ed bed mobility with maximum assistance, ule-sf-mswin transfer with maximum assistance, completed edmund let transfer with maximum assistance. Again, was noted to be drowsy today by the therapist. With oc cupational therapy, maximum to partial assistance for standing and holding up on the bed rail, bilate ral upper extremities used. Completed 4 oev-yl-skfru transfers for a minute of standing, again noted to be somewhat lethargic throughout the therapy session. With the speech pathologist, he did receiv e verbal communication, assessment and recommendations, which he communicated with understanding. Th e bedside swallow evaluation showed that he had a decline in alertness level since he was last evalua amado. Recommended providing meals with supervision only when he is alert. At bedside assessment, the patient had a choking episode noted over the weekend and recommended soft bite size diet along with thin liquids as per his request. Swallow precautions to be followed that is upright 90 degrees, smal l bites and sips, alternate solids and liquids, eat slowly, to remain upright after meals. Again, soft mechanical diet with thin liquids. Assessment And Plan: Mr. Grossman is a 78-year-old patient in rehabilitation unit with congestive heart failure exacerbation. He has some significant lethargy, he has decreased mobility, decreased physic al functioning. The strong possibility is retaining some CO2 get an ABG due to the patien t having the AV graft on the left and unable to assess that on the right as well. May have to look a t another site to try to . Today is his hemodialysis today. Did have some negative myoclo pito flaps when the arms are extended and potentially related to the uremic encephalopathy and uremic changes. He has a swallowing issue as noted above. thin liquids. In addition his stroke risk addressed with aspirin, deep venous thrombosis risk, heparin, midodrine for blood pressure supp ort. He has Ocuvite for dry eyes, Senokot for constipation, Zoloft for depression, sodium chloride tablets on board for hyponatremia and to help with blood press ure support. LIZZ/J LUIS Voice ID: [id number] Report ID: [id number]
[2024-02-25] MEDS: CYANOCOBALAMIN 1,000 MCG TAB PO SCH (10:27)
[2024-02-25] MEDS: MIDODRINE HCL 5 MG TABLET PO SCH (19:18)
--- NOTE | 2024-02-26 00:08 | PN ---
Date of Progress Note: 02/25/2024 Time Of Service: 1:55 p.m. Subjective: Mr. Grossman is slightly more alert, interactive today. He is appropriate, answers questio ns, but still somewhat sedated. Still has the negative myoclonus where extended hands tend to flop d own, but briefly for about less than a second and he is able to bring them back up, but still droppin g objects when trying to hold onto them. Otherwise, he is not complaining of pain, fevers, or chills . No significant myalgias. No rash. No pain from phantom limb in the right lower extremity high ab ove the amputation. In terms of his subjective again, no fevers, chills, nausea, vomiting. Still so mewhat sleepy and sedated, but does answer questions appropriately. The possibility of the etiology for his sedation was discussed with caregiver and relative and medication adjustments were made. His Crestor was discontinued. Midodrine instead of 3 times daily was decreased to twice daily and becau se of some bruising and bleeding, Plavix 75 mg daily was discontinued. He continued the zolpidem 10 mg at night for insomnia, Nephro-Gonzalo per renal service, tramadol for pain as needed, sodium chloride 1 g daily, Renvela that is being adjusted by the renal service, but has been held. Zoloft 50 mg len ly. Also, given Senokot 2 and twice daily given, Protonix 40 mg daily, Nitrostat 0.4 mg as needed, O cuvite for support of eye care. Does have the Atarax as needed that is for his anxiety and can cause sleepiness as well. He has gabapentin 100 mg at bedtime, ferrous sulfate 325 mg daily, Retacrit per renal service, B12 for energy, aspirin 81 mg for stroke risk reduction, Tylenol for pain. Laboratory Studies: Yesterday, white blood cell count did go up to 12.7 on the from the 8th whe n it was 10.4. His hemoglobin remained stable at 8.3 from 8.2 on the 8th. His platelets are reactiv cass elevated at 644. His blood work for also showed sodium 137, potassium 4.2, chloride 102, ca rbon dioxide 25, BUN 68, creatinine 7.83, glucose 100, calcium 9.2. His phosphorus 5.3, magnesium 2. 2. Albumin 2.6, prealbumin 6.5. There is significant malnutrition by that low number. His blood wo rk is usually done with hemodialysis. Today is his hemodialysis today. X-rays/imaging: No new x-rays or imaging. Progress Made With Physical, Occupational, And Speech Therapy: With physical therapy today, he was a ble to complete bed mobility including turning in bed with contact guard assistance. Completed supin e to sit transfers with contact guard to minimum assistance and zmx-ib-mqqnk transfers with moderate assistance. Multiple fpb-ax-mlipi transfers at rolling walker level. Started off with minimal felicita tance, ended up with moderate assistance. He was agreeable, but was somewhat groggy while he did the therapy. With occupational therapy, able to perform toileting. Maximum assistance was needed. He was able to perform facial, upper body washing with contact guard to maximum assistance and wash lowe r body, maximal assistance. Upper body dressing, supervision. Lower body dressing, maximum assistan ce. Did have some confusion and fatigue noted. His oxygen levels were kept around [address] op to less than that while he was doing therapy. Still did appear to be somewhat confused. With spe ech, he was oriented to temporal and spatial concepts with 75% accuracy. Still has decreased speed o f processing. Negotiation task completed with concrete categories with 60% accuracy and maximum verb al cues to keep attending he seems lethargic and confused during the session as he worked with the [facility]. Assessment And Plan: Mr. Grossman is a 78-year-old patient with congestive heart failure exacerbation. He does have somewhat sedation, confusion, disorientation. The possibility of retaining CO2, unable to get an ABG given the patient issues of the AV graft on the left arm and the right arm with edema and not able to get an ABG done there. He is hemodialysis patient and has hemodialysis 3 times weekl y. We will consider if the product responsibility liaison comes by to do a consultation or use of BiPAP to help move air. His oxygen saturation is or it may be a retention of CO2. Multiple medications were decreased or stopped actually today to see if those are contributing to his state of sedation. ____ will be assessed on a continues basis. He still has decreased mobility; decreased physical fu nctioning; end-stage renal disease, on hemodialysis; severe malnutrition; anemia with iron deficiency ; hypotension; constipation; hyponatremia. Plan: 1.We will continue with physical, occupational, and speech therapy for 3 hours a day, 5 of 7 days. 2.Continue hemodialysis as scheduled. 3.Continue with comorbid condition medications and we will follow up on recommendations by the pulmonary service. Of course, renal service is already on board. PAUL Voice ID: [id number] Report ID: [id number]
--- NOTE | 2024-02-26 08:19 | P.CNS ---
Date of Consult: 02/26/24 Reason for Consult: Hypoxemia Chief Complaint: Shortness of breath History of Present Illness: Patient is 78 years of age transferred to rehab had a history of a non-STEMI patient underwent an intra-aortic balloon pump was in the ICU detailed in the H&P during this admission wean on oxygen for a while of end-stage renal disease dialysis he denies any shortness of breath using oxygen has had had a recent cardiac cath normal coronary arteries elevated filling pressures patient has pulmonary hypertension denies any cough congestion Allergies Iodinated Contrast Media [Iodinated Contrast- Oral and IV Dye] Allergy (Verified 08/16/23 23:13) Nausea/Vomiting/Diarrhea Penicillins Allergy (Verified 08/16/23 23:13) Hives shellfish derived Allergy (Verified 08/16/23 23:13) Nausea/Vomiting/Diarrhea Home Medications: Acetaminophen [Tylenol] 650 mg PO Q4H PRN 02/17/24 Aspirin [Aspirin EC] 81 mg PO DAILY 02/17/24 Bisacodyl [Dulcolax*] 10 mg MD DAILY PRN 02/17/24 Clopidogrel Bisulfate [Plavix*] 75 mg PO DAILY 02/17/24 Dialyvite Capsule 1 cap PO DAILYPRN PRN 02/17/24 Docusate/Senna [Senokot-S*] 17.2 mg PO BID 02/17/24 Ferrous Sulfate [Ferrous Sulfate*] 325 mg PO DAILY 02/17/24 Fluticasone [Flonase 50MCG Nasal [place]*] 2 spray IN BID 02/17/24 Folic Acid Multivitamins 1 tab PO DAILY 02/17/24 Gabapentin [Neurontin*] 100 mg PO TID 02/17/24 Hydroxyzine HCl [Atarax] 10 mg PO TID PRN 02/17/24 Midodrine HCl 10 mg PO TIDWM 02/17/24 Nitroglycerin 0.4 mg SL DIRECTED PRN 02/17/24 Pantoprazole [Protonix Tab*] 40 mg PO DAILY 02/17/24 Polyethyl Gly 3350 [Glycolax*] 17 g PO BID 02/17/24 Rosuvastatin [Crestor*] 10 mg PO DAILY 02/17/24 Sertraline [Zoloft*] 50 mg PO DAILY 02/17/24 Vit A,C & E/Lutein/Minerals [Ocuvite Tablet] 1 tab PO DAILY 02/17/24 Zolpidem Tartrate [Ambien*] 1 tab PO BEDTIME PRN 02/17/24 - Past Medical/Surgical History Diabetic: No -: ESRD on HD TThS -: Hyperlipidemia -: GERD -: Hypertension -: Depression/Anxiety -: Macular Degeneration -: cardiac stent -: DVT right arm -: Coronary artery disease -: RT AKA -: [id number] PPM -: AICD Psychosocial/ Personal History: Patient lives at home with his family. - Family History Father Medical History: Heart disease Mother Medical History: Lung disease - Social History Smoking Status: Former smoker Alcohol use: No CD- Drugs: No Caffeine use: Yes Place of Residence: Home Review of Systems General: Weakness Respiratory: Shortness of Breath Physical Examination Temp Pulse Resp BP Pulse Ox 97.2 F 66 18 140/60 99 02/26/24 07:55 02/26/24 07:55 02/26/24 07:55 02/26/24 07:55 02/26/24 07:55 General: Alert, Oriented x3 Respiratory: Clear to auscultation bilaterally, Diminished, Crackles/rales Cardiovascular: No edema, Regular rate/rhythm, Normal S1 S2 Musculoskeletal: Other (Right above-knee amputation) Laboratory Data (last 24 hrs) 02/26/24 14:00 Triglycerides Cancelled Cholesterol Cancelled HDL Cholesterol Cancelled Cholesterol/HDL Ratio Cancelled - Problems (1) Chronic diastolic heart failure Current Visit: No Status: Acute Plan: Patient is 78 years of age admitted with non-STEMI cardiac cath did not show any evidence of coronary artery disease he has severe pulmonary hypertension I suspect due to diastolic dysfunction chest x-ray shows cardiomegaly sitter starting him on low-dose sildenafil DC nitroglycerin sildenafil for his pulmonary hypertension check room air pulse ox patient is on end-stage renal disease on dialysis labs reviewed
[2024-02-26] MEDS: SILDENAFIL CITRATE 20 MG TABLET PO SCH (09:18)
--- NOTE | 2024-02-26 16:14 | PN ---
Date of Progress Note: 02/26/2024 Subjective: The patient was admitted to the rehab. The patient had altered mental status. Renvela has been discontinued. The patient is doing well. Physical Examination: Vital Signs: Blood pressure 140/60, pulse of 66. Chest: Faint rales bilateral. Heart: S1, S2. Systolic murmur. Abdomen: Soft, nontender. Extremities: Right above-knee amputation. Trace edema. Neurologic: Alert. No focality. Laboratory Data: Hemoglobin 8.3, sodium 137, potassium 4.2, bicarb 25, BUN 68, creatinine 7.8, calci um 9, phosphorus 5.3, magnesium 2.2, albumin 2.6, corrected calcium is 10.2. Current Medications: The patient on include aspirin, hydroxyzine, midodrine 10 mg b.i.d., Epogen, ni troglycerin, sildenafil citrate, gabapentin, Zoloft, Ambien, Tylenol. Renvela, pantoprazole, tramado l. Multivitamin. Assessment And Plan: 1.End-stage renal disease. We will continue the patient on his dialysis schedule and we will monito r. The patient is scheduled for dialysis Saturday, Saturday, Saturday. Scheduled for dialysis today. 2.Hypertension, controlled, optimal. We will continue to utilize blood pressure for more ultrafiltr ation. 3.Anemia of chronic kidney disease. Continue EMMY. 4.Deconditioning bacteremia. Continue PT, OT. 5.Altered mental status, questionable secondary to Renvela. Renvela has been held and we will start tapering. The midodrine to be used only for blood pressure below 90 systolic and we will monitor. 6.Secondary hyperparathyroidism with the side effect of the Renvela. Hold Renvela. DANIELLE/J LUIS Voice ID: [id number] Report ID: [id number]
[2024-02-26] MEDS: MIDODRINE HCL 5 MG TABLET PO SCH (18:47)
[2024-02-26 20:06] LABS: Absolute Basophils 0.1 K/uL (0-0.5); Absolute Eosinophils 0.4 K/uL (0-0.5); Absolute Lymphocytes (CBC) 0.5 K/uL (0.7-4.9); Absolute Monocytes 1.4 K/uL (0.1-1.3); Absolute Neutrophil 10.1 K/uL (1.8-8.0); Basophils % 0.6 % (0-1.3); Hematocrit 24.9 % (39.6-49.0); Lymphocytes % 4.1 % (15.3-44.8); MCH 29.4 pg (27.0-35.0); MCHC 32.3 g/dL (32.0-36.0); MCV 90.9 fL (80-100); MPV 6.9 fL (7.6-11.3); Monocytes % 10.9 % (3.3-12.3); Neutrophils % 81.4 % (41.7-73.7); Platelets 598 thou/uL (152-406); RBC Red Blood Cell Count 2.74 M/uL (4.33-5.43)
[2024-02-26 20:23] LABS: Albumin 2.2 g/dL (3.4-5.0); Anion Gap 12.8 mEq/L (5.0-15.0); Potassium 3.8 mEq/L (3.5-5.1)
[2024-02-26 20:42] LABS: Prealbumin 5.8 mg/dL (20-40)
--- NOTE | 2024-02-27 08:50 | PN ---
Date of Progress Note: 02/26/2024 Time Of Service: 1:55 p.m. Subjective: Mr. Grossman is in bed, somewhat more alert than yesterday, and staff did note he is partic ipating more, still having negative myoclonus and dropping objects held in both hands. Otherwise, he has no new complaints and no significant pain in the right lower extremity where he has an above-the -knee amputation that is high above the knee. Objective: No fevers, chills, nausea, vomiting. No significant myalgias, arthralgias. No rash. Physical Examination: Vital Signs: Blood pressure 140/60, pulse 66, respiratory rate of 16, temperature 97.2, oxygen satur ation 99%. General: Mr. Grossman again is lying in bed, is still somewhat sleepy, but is easily aroused. HEENT: He is normocephalic, atraumatic. Sclerae are anicteric. Oropharynx pink, moist. Extremities: He has high fuyef-nzt-chlm amputation on the right and no significant edema or cyanosis noted on the left lower extremity. He has no new or focal deficits. Laboratory Data: In terms of blood work, he does have blood work pending. He will have hemodialysis done today. X-ray/imaging: No new x-rays or imaging done. Again, he was seen by the financial director, Dr. Quincy david, and did not recommend any new changes to the patient's medication regimen. Progress Made With Physical, Occupational, And Speech Therapy: Today with physical therapy, supine-t o-sit transfers done with standby assistance and verbal cues and multiple cxa-ln-anioe transfers usin g bed rails with moderate assistance, nrfff-rs-ssazn transfers moderate to minimum assistance. Did m obilize a wheelchair 50 feet independently today. With occupational therapy, perform bed mobility, m inimum assistance using bed rails, and he did multiple avj-xh-efiif transfers and stand to pull up lo wer body garment demonstrated poor standing tolerance due to shortness of breath and fatigue. In the afternoon session, he did work on supine upper body exercises using 3-pound dowels, 20 repetitions, 2 sets, was more alert, awake, and cohesive in the afternoon. With speech, he was oriented to tempor al concepts with 100% accuracy and spatial concepts with 50% accuracy. He recalled 5 of 5 unrelated pictures after 3 minutes . His negation task was completed with concrete category members with 70% accuracy and moderate assistance. Assessment: Mr. Grossman is a 78-year-old patient in the rehabilitation unit with an infarct affecting the martin. He does have a chronic right above-knee amputation, decreased mobility, decreased physical functioning, and has had some significant and some difficulty maintaining wakefulness. Raven bravo also has end-stage renal disease, on hemodialysis, low hemoglobin and hematocrit, neuropathic pain. Episodes of hypotension have been addressed. He has sotalol for depression and sodium chloride on board for low sodium levels and Nephro-Gonzalo on board. Plan: 1.He will have physical, occupational, and speech therapy continued 3.5 hours, 5 of 7 days. 2.His comorbid conditions are continued and managed by the Renal Service including hemodialysis and medications have been noted and are continuing. He actually today is much better after multiple medi cations were discontinued. LIZZ/J LUIS Voice ID: [id number] Report ID: [id number]
[2024-02-27] MEDS: CALCIUM CARBONATE CHEW 500MG TAB PO PRN (19:56)
--- NOTE | 2024-02-27 22:02 | PN ---
Date of Progress Note: 02/27/2024 Time Of Service: 1:45 p.m. Subjective: Mr. Grossman is resting comfortably, in no significant distress. He is feeling better abou t the therapy he is receiving, more alert, more interactive. Medications were discontinued few days ago and that has made a big difference in his ability to participate and be aware what is happening. He recognizes he needs to go to skilled and his zoxbw-gt-itdnpwus is at the bedside and she is in ag reement. Objective: No fevers, chills, nausea, vomiting. No myalgias, arthralgias. No rash. No other compl aints. Physical Examination: Vital Signs: Blood pressure 160/61, pulse 63, respiratory rate 18, temperature 97, oxygen saturation 100%. General: Again, Mr. Grossman is sitting in bed. He is happy finishing his lunch. HEENT: He is normocephalic, atraumatic. Sclerae anicteric. Oropharynx pink, moist. Neck: Supple. Neuro: He does have high right hzykd-xmw-bpne amputation. No phantom limb pain reported. Laboratory Studies: White blood cell count 12.4, 81% neutrophils, hemoglobin 8.0. Sodium 133, potas sium 3.8, chloride 100, he is a renal patient with BUN 53 and creatinine 6.51, magnesium 2.0, albumin 2.2, prealbumin 5.8. X-ray/imaging: No new x-rays or imaging. Medications: Medications have been reviewed and are unchanged. He is managed by the Renal Service. He does have midodrine for blood pressure support. He has also sildenafil on board. Progress Made With Physical, Occupational, And Speech Therapy: With physical therapy today, he did s ugccl-pf-zdf transfers with supervision and verbal cues, fxo-wf-kovre transfers and bed rail moderate assistance required, moderate assistance also for vwnvp-ps-entdj transfers. Wheelchair mobilization , 35 feet 4 times with independence. With his occupational therapy, he was able to perform bed mobil ity with minimum assistance using bed rails. Also, he did complete sitting at edge of bed with facia l hygiene done using warm washcloth with supervision. Demonstrated contact guard assistance with don ollie and doffing socks while lying on the bed. With occupational therapy, worked on temporal and spa tial orientation skills, which was 90% accurate with minimum assistance. He needed moderate assistan ce for divergent naming tasks. He could recall 30% details of 2 to 3 paragraphs with maximum assista nce. Assessment: Mr. Grossman is a 78-year-old patient in the rehabilitation unit with CHF exacerbation. He has decreased mobility, decreased physical functioning, chronic high right lgxjc-qqr-gfch amputation , end-stage renal disease, on hemodialysis, has low sodium, has depression, anxiety, and neuropathic pain and anemia, malnutrition and risk of stroke. Plan: He will continue with physical, occupational, and speech therapy 3.5 hours, 5 of 7 days. We w ill continue with comorbid condition medications including hemodialysis 3 times weekly and multiple m edications which have been noted and he is actually doing very well. He recognizes that he needs to go to jail and that will be after his discharge. LIZZ/J LUIS Voice ID: [id number] Report ID: [id number]
[2024-02-28 01:12] VITALS: O2SAT 99
[2024-02-28] MEDS: SILDENAFIL CITRATE 20 MG TABLET PO SCH (09:00)
--- NOTE | 2024-02-28 13:47 | P.RH.PN ---
Estimated Length of Stay: 15 Expected Discharge Date: 02/29/24 Discharge Disposition Plan: Home Family Support: Yes Half-Way Goal: Mobility, Transfers, Self Care Vital Signs: Last Vital Signs Temp 97.1 F 02/28/24 08:00 Pulse 75 02/28/24 08:00 Resp 14 02/28/24 12:47 BP 111/39 L 02/28/24 08:00 Pulse Ox 93 02/28/24 12:47 Laboratory: Laboratory Last Values WBC 12.40 thou/uL (4.3-10.9) H 02/26/24 19: RBC 2.74 M/uL (4.33-5.43) L 02/26/24 19: Hgb 8.0 g/dL (13.6-17.9) L 02/26/24: Hct 24.9 % (39.6-49.0) L 02/26/24: MCV 90.9 fL (80-100) 02/26/24: MCH 29.4 pg (27.0-35.0) 02/26/24: MCHC 32.3 g/dL (32.0-36.0) 02/26/24: RDW 19.0 % (12.1-15.2) H 02/26/24: Plt Count 598 thou/uL (152-406) H 02/26/24 19:25 MPV 6.9 fL (7.6-11.3) L 02/26/24 19:25 Plt Distribution Width Cancelled 02/18/24 05:00 Absolute Nucleated RBC Cancelled 02/18/24 05:00 Neutrophils % 81.4 % (41.7-73.7) H 02/26/24 19: Lymphocytes % 4.1 % (15.3-44.8) L 02/26/24: Monocytes % 10.9 % (3.3-12.3) 02/26/24: Eosinophils % 3.0 % (0-4.4) 02/26/24: Basophils % 0.6 % (0-1.3) 02/26/24: Nucleated RBC % Cancelled 02/18/24 05:00 Absolute Neutrophils 10.1 K/uL (1.8-8.0) H 02/26/24 19:25 Segmented Neutrophils 86 % (40-80) H 02/19/24 17:20 Band Neutrophils 5 % (0-1) H 02/19/24 17:20 Absolute Lymphocytes 0.5 K/uL (0.7-4.9) L 02/26/24 19:25 Lymphocytes 4 % (15-42) L 02/19/24 17:20 Monocytes 2 % (0-10) 02/19/24 17:20 Absolute Monocytes 1.4 K/uL (0.1-1.3) H 02/26/24 19:25 Eosinophils 3 % (0-3) 02/19/24 17:20 Absolute Eosinophils 0.4 K/uL (0-0.5) 02/26/24 19: Absolute Basophils 0.1 K/uL (0-0.5) 02/26/24 19:25 Diff Path Review Cancelled 02/18/24 05:00 Platelet Estimate Incr 02/19/24 17:20 Anisocytosis 1+ 02/19/24 17:20 Morphology Comment Noted (NOT SEEN) 02/19/24 17:20 pH Cancelled 02/22/24 08:00 pCO2 Cancelled 02/22/24 08:00 pO2 Cancelled 02/22/24 08:00 HCO3 Cancelled 02/22/24 08:00 Base Excess Cancelled 02/22/24 08:00 Oxyhemoglobin Cancelled 02/22/24 08:00 ABG O2 Sat (Measured) Cancelled 02/22/24 08:00 ABG Carboxyhemoglobin Cancelled 02/22/24 08:00 ABG Methemoglobin Cancelled 02/22/24 08:00 Other Total Hgb Cancelled 02/22/24 08:00 Inspired O2 Cancelled 02/22/24 08:00 Sodium 133 mEq/L (136-145) L 02/26/24 19:25 Potassium 3.8 mEq/L (3.5-5.1) 02/26/24 19: Chloride 100 mEq/L (98-107) 02/26/24: Carbon Dioxide 24 mEq/L (21-32) 02/26/24 19: Anion Gap 12.8 mEq/L (5.0-15.0) 02/26/24 19:25 BUN 53 mg/dL (7-18) H 02/26/24 19:25 Creatinine 6.51 mg/dL (0.70-1.30) H 02/26/24 19:25 Est GFR (CKD-EPI) 8 ml/min (=/>90) L 02/26/24 19:25 Glucose 101 mg/dL (74-106) 02/26/24 19:25 Calcium 8.0 mg/dL (8.5-10.1) L 02/26/24 19:25 Phosphorus 5.3 mg/dL (2.5-4.9) H 02/24/24 19:24 Magnesium 2.0 mg/dL (1.6-2.4) 02/26/24 19:25 Lactate Dehydrogenase 175 U/L (87-241) 02/19/24 17:20 NT-Pro-B Natriuret Pep Cancelled 02/18/24 05:00 Albumin 2.2 g/dL (3.4-5.0) L 02/26/24 19:25 Prealbumin 5.8 mg/dL (20-40) L 02/26/24 19:25 Triglycerides 95 mg/dL (<150) 02/26/24 19:25 Cholesterol 93 mg/dL (<200) 02/26/24 19:25 LDL Cholesterol, Calc 44 mg/dL (<130) 02/26/24 19:25 HDL Cholesterol 30 mg/dL (40-60) L 02/26/24 19:25 Cholesterol/HDL Ratio 3.10 02/26/24 19:25 Procalcitonin 1.05 ng/mL (<0.50) H 02/19/24 17:20 Urine Color Light-orange (Yellow) 02/18/24 19:36 Urine Clarity Extremely turbid (Clear) H 02/18/24 19:36 Urine pH 6.0 (5.0-7.0) 02/18/24 19:36 Ur Specific [place] 1.014 (1.005-1.030) 02/18/24 19:36 Glucose (UA)(Auto) Negative (Negative) 02/18/24 19:36 Urine Ketones Negative (Negative) 02/18/24 19:36 Urine Blood 2+ (Negative) H 02/18/24 19:36 Urine Nitrite Negative (Negative) 02/18/24 19:36 Urine Bilirubin Negative (Negative) 02/18/24 19:36 Urine Urobilinogen Normal (Normal) 02/18/24 19:36 Ur Leukocyte Esterase 500 Omari/uL (Negative) H 02/18/24 19:36 Urine Total Protein 2+ (Negative) H 02/18/24 19:36 Weight: 183 lb Wound Present: No Closed Surgical Incision Present: No Negative Pressure Wound Therapy Present: No Physician Update: Labs reviewed and he is on HD. BIMS 13, SLUMS 13, with PT supervision with bed mobility, STS mod assist. WC 35' x 4 with independence while on isolation. With OT CGA showering, min assist lower body dressing and toileting. Eats food from the out side. Summary: Patient's care plan and buttermaker goals have been reviewed and revised as necessary. Please see the Rehabilitation Signature page for all necessary signatures.
[2024-02-28] MEDS: ALBUMIN HUMAN 25% 100 ML IV ONE (17:26)
[2024-02-29 08:08] VITALS: BP 171/72; TEMP 97.7
== END 2024-02-29 13:55 | DRG 280 ==
LOC: 5TH 02-17 19:14
PROVIDERS: ADMIT Psychiatry & Neurology Neurology with Special Qualifications in Child Neurology; ATTEND Psychiatry & Neurology Neurology with Special Qualifications in Child Neurology
DX: I21.4 Non-ST elevation (NSTEMI) myocardial infarction (principal); I50.33 Acute on chronic diastolic (congestive) heart failure; N18.6 End stage renal disease; R57.8 Other shock; B37.89 Other sites of candidiasis; N25.81 Secondary hyperparathyroidism of renal origin; E87.1 Hypo-osmolality and hyponatremia; E46 Unspecified protein-calorie malnutrition; I50.32 Chronic diastolic (congestive) heart failure; Z89.611 Acquired absence of right leg above knee; I25.10 Atherosclerotic heart disease of native coronary artery without angina pectoris; Z99.2 Dependence on renal dialysis; E78.5 Hyperlipidemia, unspecified; K21.9 Gastro-esophageal reflux disease without esophagitis; J30.9 Allergic rhinitis, unspecified; F41.9 Anxiety disorder, unspecified; M19.90 Unspecified osteoarthritis, unspecified site; M81.0 Age-related osteoporosis without current pathological fracture; N40.0 Benign prostatic hyperplasia without lower urinary tract symptoms; K57.90 Diverticulosis of intestine, part unspecified, without perforation or abscess without bleeding; H35.30 Unspecified macular degeneration; G54.6 Phantom limb syndrome with pain; Z95.0 Presence of cardiac pacemaker; G47.00 Insomnia, unspecified; H35.50 Unspecified hereditary retinal dystrophy; J44.9 Chronic obstructive pulmonary disease, unspecified; I73.9 Peripheral vascular disease, unspecified; I50.9 Heart failure, unspecified; D63.1 Anemia in chronic kidney disease; K59.00 Constipation, unspecified; F32.A Depression, unspecified; Z68.27 Body mass index [BMI] 27.0-27.9, adult; I95.9 Hypotension, unspecified; Z87.891 Personal history of nicotine dependence
CPT/HCPCS: 36415; 70450; 71045; 80048; 80061; 80069; 81001; 82040; 83615; 83735; 84134; 84145; 85025; 87040; 87086; 87088; 90935; 92523; 92610; 94010; 97110; 97116; 97129; 97163; 97165; 97530; 97542; J1644; J2150; J3420; P9047